=== PATIENT | male | born 1945 | race Caucasian/White ===

== ENCOUNTER → 2016-09-23 | Outpatient (CLI) | payer BC ==
[~2016-09-23] MED LIST: CMD5 PO; EPP3/2 IM; HYDR10TA52 PO; HYDR20TA3 PO; KETO2CRE14 TOP; LEUP11.23; SYMIN160 INH; TAMS0.4C38 PO; VNTHFA/IN INH; WARF5TAB90 PO; [UNRECOGNIZED DRUG - CODE] IM
--- NOTE | 2016-09-23 12:44 | DIAGNOSTIC IMAGING REPORT ---
CHEST 2 VIEWS ROUTINE CLINICAL HISTORY: R06.09 MORA (DYSPNEA ON EXERTION) COMPARISON STUDY: 05/29/2014 FINDINGS: The bones soft tissues and hemidiaphragms are normal. The cardiomediastinal silhouette is normal. The lungs are clear. The pulmonary vasculature is normal. IMPRESSION: Negative chest. Electronically signed by: Tom Ba M.D. 09/23/2016 12:43 PM Dictated Date/Time: 09/23/2016 12:43 PM
== END | disposition home or self-care (01) ==
LOC: C.RAD 12:04
PROVIDERS: ATTEND Family Medicine
DX: R06.09 Other forms of dyspnea (principal)

== ENCOUNTER → 2016-10-28 | Outpatient (CLI) | payer BC ==
[2016-10-28 16:51] LABS: MANUAL MICROSCOPIC REQUIRED? NO; REVIEW REQ? NO; URINE APPEARANCE CLOUDY (CLEAR); URINE BILIRUBIN NEG (NEG); URINE COLOR ORANGE; URINE EPITHELIAL CELL AUTO 20-30 /lpf (0-5); URINE NITRITE NEG (NEG); URINE SPECIFIC GRAVITY 1.023 (1.000-1.030); UROBILINOGEN NEG (NEG); ZZUR CULT IF INDIC CLEAN CATCH YES
== END | disposition home or self-care (01) ==
LOC: C.LAB 15:29
PROVIDERS: ATTEND Radiology Radiation Oncology
DX: C61 Malignant neoplasm of prostate (principal); R31.9 Hematuria, unspecified

== ENCOUNTER → 2016-11-18 | Outpatient (CLI) | payer BC ==
[2016-11-18 14:53] VITALS: BP 122/82; PULSE 76; TEMP 37; O2SAT 97
[2016-11-18 16:12] LABS: URINE APPEARANCE CLOUDY (CLEAR); URINE BILIRUBIN NEG (NEG); URINE COLOR YELLOW; URINE NITRITE NEG (NEG); URINE SPECIFIC GRAVITY 1.022 (1.000-1.030); UROBILINOGEN NEG (NEG); ZZUR CULT IF INDIC CLEAN CATCH NO
[2016-11-18 16:33] LABS: MANUAL MICROSCOPIC REQUIRED? NO; REVIEW REQ? NO
--- NOTE | 2016-11-18 16:40 | Radiation Oncology Follow-Up ---
Radiation Oncology Follow-Up Date of Visit Nov 18, 2016. Reason For Visit One-month follow-up and cancer survivorship care plan Radiation Completion Date 10/09/16 and hormonal suppression; Diagnosis (1) Prostate cancer Status: Acute Onset Date: 12/22/2013 Location: right lobe of the prostate in 2013 bilateral in 2016 Histology Subtype: adenocarcinoma Stage: ll Permanent Comment: Positive family history of prostate cancer Rising PSA to 6.54 Status post ultrasound-guided biopsies 12/22/2013 revealing adenocarcinoma Jose 3+4 Status post TURP 04/23/2014 benign tissue Status post repeat biopsy 07/19/2015 3+3, and 3+4 4+3 Status post repeat biopsy 03/06/2016 3+4, 4+3 and 4+4 Initiation of hormonal suppression 07/21/2016 with Lupron 30 mg. Plan for 18 months of hormonal suppression Status post completion of radiation therapy 10/09/2016 received 8040 cGy Last Edited By: Hilda Montemayor on Oct 20, 2016 13:03 History of Present Illness Mr. High is a 71-year-old male with a strong prostate cancer family history. The patient's father was diagnosed in his 60s with prostate cancer. He was treated with radiation and ultimately with hormonal therapy. He at age 80 from his prostate cancer. His younger brother was diagnosed with prostate cancer at age 60 with a similar [place] grade 7 and on April 14 of last year underwent a radical prostatectomy at [facility] in [place]. The patient has no other siblings and has no children. His prostate-specific antigen has been followed closely. In May 2012 prostate- specific antigen was elevated at 6.54. This was repeated on 08/12/2012 with return of the prostate-specific antigen to normal at 3.93. In 05/15/2013 the prostate-specific antigen was 4.38. On 06/01/2013 prostate-specific antigen was 4.11. With this persistent prostate-specific antigen elevation Dr. Vick recommended additional studies including a prostate biopsy. The patient digital rectal exam was unremarkable with a clinical stage TIc. On 12/22/2013 he underwent ultrasound-guided prostate biopsy. His prostate volume was 29.8 mL. With a presenting prostate-specific antigen of 4.11 his prostate- specific antigen density was normal at 0.14. A total of 20 biopsies were taken. Biopsies from the left base left mid left apex and left anterior were all benign. 2 of 3 biopsies from the right base revealed adenocarcinoma Jose grade of 3+3. The tumor involved about 0.2 mm of each core with no evidence of perineural invasion. 2 of 3 biopsies from the right mid gland revealed adenocarcinoma Jose grade of 3+4 involving 0.4 cm of one core and 0.1 cm of a second core. No perineural invasion was seen. The [place] grade 4 component was approximate 10%. Biopsies from the right base and right anterior were benign with evidence of mild acute and chronic inflammation seen in the right apex biopsies. Case: [id number]. The patient returned to discuss the biopsy findings with Dr. Vick. He is scheduled to see Dr. Aguiar to discuss robotic surgical treatment options here at [facility]. He is scheduled to be seen by the surgery Department at [facility] in [place] on 02/08/2014 for a second opinion and is planning on making an appointment at [facility] for an additional opinion on his prostate cancer. Patient had a bone scan performed on 01/02/2014 which showed no evidence of metastatic disease. An IVP on 01/23/2014 was unremarkable and a CT scan of the chest on 01/22/2014 also unremarkable. Following the initial consultation on 01/25/2014 patient sought a second opinion to [facility]. He was then seen at [facility] in [place]. This had been where his brother had been treated. He then followed with them for a period of time. Due to his difficulty with urination he had a cystoscopy and TURP 01/21/2014. This revealed benign tissue. Specimen S1 [id number]. The PSA 02/14/2015 was 4.19. He had a repeat biopsy 07/19/2015. This revealed minute foci of adenocarcinoma 3+3 at the left base. There was adenocarcinoma 4+3 at the right mid. 3+3 at the right apex. 3 +4 at the right base. 4+3 at the right mid. 3+3 at the right apex. Specimen S1 [id number]. His PSA 02/21/2016 was 7.30 More recently 03/06/2016 he had a recheck biopsy which revealed [place] 3+4 at the left base. There was a 4+3 at the right mid. And a 4+4 at the right lateral mid. Specimen [id number] [id number]. Today he gave an AUA score of 7. He completed expanded prostate cancer index composite for clinical practice and gave a score of 2 of 12 in urinary incontinence symptoms. He gave a score of 2 of 12 in urinary irritation symptoms. He gave a score of 5 of 12 in bowel symptoms. He gave a score of 3 of 12 in sexual symptoms. He gave a score of 3 of 12 in hormonal vitality symptoms. His total was 15 of 60. He had a recheck visit with Dr. Vick. The recheck biopsies were reviewed. The recommendation was for him to return to radiation oncology for follow-up. He had a recheck bone scan 05/11/2016. There was no evidence of metastatic disease. He had a CAT scan on the same day that showed no evidence of metastatic disease within the abdomen or pelvis. He has stable cortical and trabecular thickening in the right hemipelvis. He made a decision to undergo hormone suppression and external beam radiation therapy. Gold fiducial markers were placed. He then underwent radiation therapy. Radiation was completed 10/09/2016. He received 8040 cGy. Interim History He has had mild hematuria over the past month. This previously it had occurred and we discussed the symptoms that he was having. Urinalysis was obtained and culture. The final culture showed no growth. The hematuria has improved. He notes with increasing fluids this improves. He has had no hematuria over the past day and a half. He has mild pressure feeling of the bladder. At times he feels that the bladder does not completely empty. He will have dribbling of the urine before the stream starts and then after his stream finishes. He stopped tamsulosin on his own. He has had increased number of bowel movements. At times he will have diarrhea. He has had bowel issues in the past but have increased since completion of treatment. While on treatment he was taking Metamucil and this did help with his bowel side effects. He has stopped taking Metamucil. He completed AUA score sheet and gave a score of 13. At the end of treatment his AUA score was 13. He completed and expanded prostate cancer index composite for clinical practice and gave a score of 4 of 12 and urinary incontinence symptoms. He gave a score of 4 of 12 and urinary irritation symptoms. He gave a score of 8 of 12 bowel symptoms. He gave a score of 2 of 12 in sexual symptoms. He gave a score of 8 of 12 and hormonal vitality symptoms. His total was 26 of 60. He does continue to have hot flashes. He had a 9 pound weight gain which she attributes to decreased activity and not exercising. Allergies Coded Allergies: Iodinated Diagnostic Agents (Verified Allergy, Severe, CARDIAC ARREST FROM CT CONTRAST, 09/14/14) Home Medications Scheduled Budesonide/Formoterol Fumarate (Symbicort 160/4.5 Inhaler ), 2 PUFFS INH BID Epinephrine (Epipen 2-Pedro), 0.3 MG IM UD Hydrocortisone (Cortef), 15 MG PO QAM Hydrocortisone (Cortef), 10 MG PO HS Leuprolide Acetate (Lupron Depot), UD Tamsulosin Hcl (Flomax), 1 CAP PO DAILY Warfarin Sod (Coumadin), 7.5 MG PO 2XWK Warfarin Sodium (Coumadin), 5 MG PO 5XWK Scheduled PRN Cortisone Acetate (Cortisone Acetate), 100 MG IM UD PRN for adrenal shock Ketoconazole 2% (Nizoral 2%), 1 APPLN TOP DAILY PRN for Face-Itching Review of Systems Gastrointestinal: Symptoms: Diarrhea Oral: Symptoms: No Problems Respiratory: Symptoms: SOB At Rest, SOB With Exertion Sputum Character: Relates some of the SOB to inactivity and decreased endurance; Other Respiratory: SOB with and without exertion- uses symbicort inhaler w/ relief; Urinary: Comments: see below notations Skin: Symptoms: No Problems Physical Exam Vital Signs Date Time Temp Pulse Resp B/P Pulse Ox O2 Delivery O2 Flow Rate FiO2 11/18/16 14:53 37.0 76 16 122/82 97 Fatigue: None General Appearance: no apparent distress Eyes: normal inspection, EOMI ENT: normal ENT inspection, hearing grossly normal Respiratory/Chest: lungs clear, no respiratory distress, no accessory muscle use Cardiovascular: regular rate, rhythm, no gallop, no murmur Abdomen: non tender, soft, + pertinent finding (bladder scan shows postvoiding residual to be 0.) Extremities: no pedal edema Neurologic/Psychiatric: no motor/sensory deficits, alert, normal mood/affect Laboratory Studies Test 09/30/16 08:51 10/28/16 15:37 11/03/16 15:17 11/18/16 15:13 POC Prothrombin Time INR 2.3 (0.9-1.1) 2.0 (0.9-1.1) Urine Color ORANGE Urine Appearance CLOUDY (CLEAR) Urine pH 5.0 (4.5-7.5) Urine Specific Butterfield 1.023 (1.000-1.030) Urine Protein 2+ (NEG) Urine Glucose (UA) NEG (NEG) Urine Ketones TRACE (NEG) Urine Occult Blood 3+ (NEG) Urine Nitrite NEG (NEG) Urine Bilirubin NEG (NEG) Urine Urobilinogen NEG (NEG) Urine Leukocyte Esterase SMALL (NEG) Urine WBC (Auto) 10-30 /hpf (0-5) Urine RBC (Auto) >30 /hpf (0-4) Urine Hyaline Casts (Auto) 1-5 /lpf (0-5) Urine Epithelial Cells (Auto) 20-30 /lpf (0-5) Urine Bacteria (Auto) NEG (NEG) Prostate Specific Antigen < 0.010 ng/ml (0.000-4.000) Test 11/18/16 15:45 Assessment & Plan Plan: We'll check a urinalysis and urine culture and sensitivity. I've instructed him to restart tamsulosin and continue this medication regularly. I' ve instructed him to restart Metamucil and take this regularly. He'll be notified if he has a urinary tract infection this will be treated appropriately. We discussed that the hematuria may be secondary to inflammation posttreatment. This should steadily improve over time. His PSA results were complete before he left the office. This was less than 0.01. I reviewed with him that this is being affected by the hormone suppression. This will possibly increase following the completion of hormone suppression. As energy levels improved he can increase his exercise and activity. I've asked him to make an appointment to see Dr. Aguiar in 3 months. We asked him to return to our office in 6 months. Total Time In Follow-Up I spent 25 minutes speaking to the patient performing examination. I spent 15 minutes reviewing information and completeness note. Copy To Chuy Batista M.D.; Dequan Aguiar M.D.
== END | disposition home or self-care (01) ==
LOC: C.ONC 14:29
PROVIDERS: ATTEND Physician Assistant Medical
DX: Z08 Encounter for follow-up examination after completed treatment for malignant neoplasm (principal); Z92.3 Personal history of irradiation; Z85.46 Personal history of malignant neoplasm of prostate

== ENCOUNTER → 2017-04-22 | Outpatient (CLI) | payer BC | END | disposition home or self-care (01) | LOC: C.LAB 11:36 | PROVIDERS: ATTEND Urology | DX: J34.2 Deviated nasal septum (principal); R79.9 Abnormal finding of blood chemistry, unspecified; I82.4Z9 Acute embolism and thrombosis of unspecified deep veins of unspecified distal lower extremity; C61 Malignant neoplasm of prostate ==

== ENCOUNTER → 2017-05-28 | Outpatient (CLI) | payer BC ==
[~2017-05-28] MED LIST changes: -TAMS0.4C38 PO
--- NOTE | 2017-05-28 10:01 | DIAGNOSTIC IMAGING REPORT ---
KUB CLINICAL HISTORY: R31.0 Gross [id number] COMPARISON STUDY: 01/23/2014 FINDINGS: There is no pathologic bowel dilatation. There are no calcifications suspicious for urinary tract calculi. There are coarsened trabecular markings within the right hemipelvis. The findings likely represent Paget's disease IMPRESSION: 1. No evidence of pathologic bowel dilatation 2. No urinary tract calculi identified Electronically signed by: Arash Fry M.D. 05/28/2017 10:00 AM Dictated Date/Time: 05/28/2017 9:58 AM
[2017-05-28 10:03] LABS: URINE APPEARANCE CLEAR (CLEAR); URINE BILIRUBIN NEG (NEG); URINE COLOR YELLOW; URINE NITRITE NEG (NEG); URINE PH 5.5 (4.5-7.5); URINE SPECIFIC GRAVITY 1.018 (1.000-1.030); UROBILINOGEN NEG (NEG)
[2017-05-28 10:06] LABS: MANUAL MICROSCOPIC REQUIRED? NO; REVIEW REQ? NO
== END | disposition home or self-care (01) ==
LOC: C.RAD 09:10
PROVIDERS: ATTEND Nurse Practitioner Adult Health
DX: R31.0 Gross hematuria (principal)

== ENCOUNTER → 2017-06-01 | Outpatient (CLI) | payer BC | END | disposition home or self-care (01) | LOC: C.LABSPEC 17:08 | PROVIDERS: ATTEND Urology | DX: R31.0 Gross hematuria (principal) ==

== ENCOUNTER → 2017-12-02 | Outpatient (CLI) | payer OTHER ==
[~2017-12-02] MED LIST changes: +TAMS0.4C38 PO; +TRAM-10 PO
--- NOTE | 2017-12-02 18:25 | DIAGNOSTIC IMAGING REPORT ---
ADDENDUM Incidental note made of a bladder diverticulum arising from the posterior wall immediately superior to the seminal vesicles. In answer to the clinical query regarding of the presence of diverticulitis, no diverticulosis is present. Therefore, no diverticulitis is evident. No inflammatory changes of the bowel. Electronically signed by: Segundo Cunningham M.D. 12/03/2017 9:32 AM Dictated Date/Time: 12/03/2017 9:30 AM ORIGINAL REPORT ABD/PELVIS WITHOUT FOR STONE CLINICAL HISTORY: 72 years-old Male presenting with ABDOMINAL PAIN R/O STONE, history of prostate cancer. TECHNIQUE: Multidetector CT of the abdomen and pelvis was performed without the use of intravenous contrast. IV contrast: None. A dose lowering technique was used consistent with the principles of ALARA (as low as reasonably achievable). COMPARISON: 05/11/2016. CT DOSE (mGy.cm): The estimated cumulative dose is 1102.46 mGycm. FINDINGS: Qualification Engineer topogram: Unremarkable. Lung bases: Lungs and pleural spaces clear. Aortic valve calcification. Normal heart size. Small pericardial effusion, new from prior. No pleural effusion. Liver: Normal morphology. Density consistent with hepatic steatosis. Biliary: No gross biliary ductal dilatation allowing for noncontrast technique. Normal gallbladder. Pancreas: Moderate parenchymal atrophy. Spleen: Normal noncontrast appearance. Adrenal glands: Normal noncontrast appearance. Kidneys and ureters: Normal noncontrast appearance of the right kidney. Multiple left renal calculi, the largest at the lower pole measuring 9 mm. Apparent dilatation of the calyces at the lower pole as well as mild left pelviectasis. There is a calculus in the proximal left ureter measuring 4 mm, which is likely partially obstructing. An additional punctate calculus is evident in the left renal pelvis (series 2 image 82). Additionally, there is a 2 mm calculus in the distal left ureter (series 2 image 165). Mild diffuse periureteral fat stranding. Right ureter is normal. No right renal calculi. Bladder: Incompletely evaluated secondary to underdistention. Pelvic organs: Fiducial markers noted in the prostate likely indicating prior external beam radiation. Bowel: Normal. No bowel obstruction. Peritoneal cavity: No free fluid or intraperitoneal gas. Subtle infiltration of the periprostatic region likely represents post radiation change. Lymph nodes: No gross lymphadenopathy allowing for noncontrast technique. Vasculature: Atherosclerosis of the normal caliber abdominal aorta. Abdominal wall: Normal. Musculoskeletal: Degenerative changes of the spine. Cortical thickening with coarsened trabecular markings in the right hemipelvis consistent with Paget's disease. IMPRESSION: 1. Multiple calculi in the left ureter including a punctate calculus at the left renal pelvis, 4 mm proximal left ureteral calculus, and an additional 2 mm distal left ureteral calculus. These are likely partially obstructing given dilatation of the left renal pelvis and calyces of the left lower pole. Nonobstructing left renal calculi also noted, the largest measuring 9 mm. 2. No right renal or ureteral calculi. 3. Posttreatment changes in the pelvis from external beam radiation for treatment for prostate cancer. 4. Hepatic steatosis. 5. Small pericardial effusion, new from prior. 6. Right hemipelvis Paget's disease. Electronically signed by: Segundo Cunningham M.D. 12/02/2017 6:23 PM Dictated Date/Time: 12/02/2017 6:01 PM
== END | disposition home or self-care (01) ==
LOC: C.CTS 17:19
PROVIDERS: ATTEND Family Medicine
DX: N20.2 Calculus of kidney with calculus of ureter (principal); K76.0 Fatty (change of) liver, not elsewhere classified; I31.3 Pericardial effusion (noninflammatory); M88.88 Osteitis deformans of other bones

== ENCOUNTER → 2017-12-03 | Outpatient (CLI) | payer OTHER ==
[2017-12-03 10:07] LABS: BASO % 0.3 %; BASO ABS # 0.02 K/uL (0-0.2); EOS % 1.8 %; EOS ABS # 0.12 K/uL (0-0.5); HEMATOCRIT 38.2 % (42-52); HEMOGLOBIN 13.1 g/dL (14.0-18.0); IG# 0.01 K/uL (0.00-0.02); LYMPH % 19.3 %; LYMPH ABS # 1.28 K/uL (1.2-3.4); MEAN CELL VOLUME 88.4 fL (80-100); MEAN CORPUSCULAR HEMOGLOBIN 30.3 pg (25-34); MEAN CORPUSCULAR HGB CONC 34.3 g/dl (32-36); MEAN PLATELET VOLUME 9.1 fL (7.4-10.4); MONO % 9.8 %; MONO ABS # 0.65 K/uL (0.11-0.59); NEUT % 68.6 %; NEUT ABS # 4.55 K/uL (1.4-6.5); PLATELET COUNT 190 K/uL (130-400); RED CELL DISTRIBUTION WIDTH CV 13.5 % (11.5-14.5); RED CELL DISTRIBUTION WIDTH SD 43.9 fL (36.4-46.3); WHITE BLOOD COUNT 6.63 K/uL (4.8-10.8)
== END | disposition home or self-care (01) ==
LOC: C.LAB 09:05
PROVIDERS: ATTEND Family Medicine
DX: R10.9 Unspecified abdominal pain (principal); C61 Malignant neoplasm of prostate

== ENCOUNTER → 2017-12-04 | Outpatient (CLI) | payer OTHER ==
[2017-12-04 09:49] LABS: BASO % 0.2 %; BASO ABS # 0.01 K/uL (0-0.2); EOS % 4.2 %; HEMATOCRIT 37.9 % (42-52); LYMPH % 26.3 %; LYMPH ABS # 1.26 K/uL (1.2-3.4); MEAN CELL VOLUME 88.8 fL (80-100); MEAN CORPUSCULAR HEMOGLOBIN 30.4 pg (25-34); MEAN CORPUSCULAR HGB CONC 34.3 g/dl (32-36); MEAN PLATELET VOLUME 9.3 fL (7.4-10.4); MONO % 10.6 %; MONO ABS # 0.51 K/uL (0.11-0.59); NEUT % 58.7 %; NEUT ABS # 2.81 K/uL (1.4-6.5); PLATELET COUNT 192 K/uL (130-400); RED CELL DISTRIBUTION WIDTH CV 13.6 % (11.5-14.5); RED CELL DISTRIBUTION WIDTH SD 43.9 fL (36.4-46.3); WHITE BLOOD COUNT 4.79 K/uL (4.8-10.8)
== END | disposition home or self-care (01) ==
LOC: C.LAB 08:46
PROVIDERS: ATTEND Family Medicine
DX: R10.9 Unspecified abdominal pain (principal)

== ENCOUNTER → 2017-12-07 | Outpatient (CLI) | payer OTHER ==
--- NOTE | 2017-12-07 14:14 | DIAGNOSTIC IMAGING REPORT ---
KUB HISTORY: RENAL STONE, WENT TO LAB FIRST COMPARISON: KUB 05/28/2017. FINDINGS: The bowel gas pattern is unremarkable. There are no dilated loops of small bowel to suggest an obstruction. No right renal or right ureteral calculi. The patient's known left renal calculi are obscured by overlying bowel gas. Stable calcifications overlying the sacrum are therefore likely vascular. No ureteral calculi identified this study. No pneumoperitoneum or pneumatosis. IMPRESSION: The patient's known left renal and left ureteral calculi are not identified on this study. Electronically signed by: Des Harrison M.D. 12/07/2017 2:12 PM Dictated Date/Time: 12/07/2017 2:08 PM
[2017-12-07 15:20] LABS: ALBUMIN 3.7 gm/dl (3.4-5.0); AST/SGOT 17 U/L (15-37); BLOOD UREA NITROGEN 28 mg/dl (7-18); CALCIUM 9.3 mg/dl (8.5-10.1); CARBON DIOXIDE 28 mmol/L (21-32); CREATININE 1.73 mg/dl (0.60-1.40); GLUCOSE 146 mg/dl (70-99); POTASSIUM 3.9 mmol/L (3.5-5.1); SODIUM 139 mmol/L (136-145)
--- NOTE | 2017-12-07 15:20 | DIAGNOSTIC IMAGING REPORT ---
RENAL ULTRASOUND CLINICAL HISTORY: Renal stone. COMPARISON STUDY: CT of the abdomen and pelvis December 02, 2017 and KUB December 07, 2017. TECHNIQUE: Sonography of the kidneys and the urinary bladder was performed. FINDINGS: The right kidney measures 10.6 cm in maximal dimension and the left measures 12.4 cm. There is no hydronephrosis. Note is made of a 3.9 cm cyst within the lower pole of the left kidney. Several left renal calculi measure up to 9 mm. Both ureteral jets were identified. IMPRESSION: 1. No hydronephrosis. 2. Left-sided nephrolithiasis. Electronically signed by: Boris Keys M.D. 12/07/2017 3:19 PM Dictated Date/Time: 12/07/2017 3:16 PM
[2017-12-07 15:28] LABS: ALKALINE PHOSPHATASE 91 U/L (45-117); ALT/SGPT 28 U/L (12-78); TOTAL PROTEIN 7.3 gm/dl (6.4-8.2)
== END | disposition home or self-care (01) ==
LOC: C.LAB 13:30
PROVIDERS: ATTEND Family Medicine
DX: N20.0 Calculus of kidney (principal); R10.9 Unspecified abdominal pain

== ENCOUNTER → 2018-03-11 | Outpatient (CLI) | payer OTHER ==
[~2018-03-11] MED LIST changes: -LEUP11.23; +LEUP30IN3; -TAMS0.4C38 PO; -TRAM-10 PO
== END | disposition home or self-care (01) ==
LOC: C.PATHSPEC 13:45
PROVIDERS: ATTEND Podiatrist Foot & Ankle Surgery
DX: M19.071 Primary osteoarthritis, right ankle and foot (principal); C44.709 Unspecified malignant neoplasm of skin of left lower limb, including hip; L57.0 Actinic keratosis

== ENCOUNTER → 2018-03-14 | Outpatient (CLI) | payer OTHER ==
--- NOTE | 2018-03-15 05:30 | PAP/PSG TECHNICIAN REPORT ---
[facility] Food Service Assistant Polysomnogram Report Study name: None Report date: 03/15/2018 Study date: 03/14/2018 Referring Physician: Dr. Vaishnavi Diehl M.D. Name: EDWIN HIGH Interpreting Physician: Vaishnavi Diehl M.D. Date of : 1945 Food Service Assistant: Caro Esparza [facility]. Sex: Male Age: 72 StudyType: PSG Weight: 276 lbs Height: 72 years, Height 6' 3" Neck Circum: 17 inches BMI: 34.49 Medications: Albuterol 108 ( 90 Base), Azelastine 0.1%, Epi-Pen, Hydrocortisone 10 mg and 5 mg, Coumadin 5 mg Patient History 72 yr. old male here for a diagnostic sleep study. Patient had a recent PSG that was negative for ANDRZEJ. A repeat PSG is being done given the night to night variability in sleep apnea. Patient is taking a one-time Zolpidem for this study Parameters Monitored NPSG: E1-M2, E2-M1, Fp1-M2, Fp2-M1, F3-M2, F4-M2, F4-M1, C3-M2, C4-M2, C4-M1, O1-M2, O2-M2, O2-M1, T3-M2, T4-M1, P3-M2, P4-M1, CHIN1, CHIN2, HR, EKG, Legs, PFLOW, SNOR, FLOW, CFLOW, Tidal Volume, THOR, ABDO, SpO2, PLTH, CPRESS, ETCO2 Wave, ETCO2, pH Sleep Architecture Sleep Stages Time at Lights Off 9:33:31 PM STAGES Time (min.) TST (%) Time at Lights On 5:17:01 AM Wake 141.5 -- Total Recording Time (TRT) 463.00 min. N1 40.0 12 Total Sleep Period (TSP) 424.0 min. N2 170.5 53 Total Sleep Time (TST) 321.5min. N3 86.5 27 Awake Time 141.5 min. REM 24.5 8 Wake after Sleep Onset 134.0 min. Sleep Efficiency (SE) 69 % Sleep Onset Latency (AZK) 8.0 min. Number of Stage 1 Shifts None Awakenings 20 Stage Changes 82 Number of REM periods 3 REM 24.5 8 REM Latency 143.0 min. NREM 297.0 92 Body Position Analysis Supine Right Left Side Prone Vertical Total Sleep Time (min.) 165.7 248.7 0.0 248.72 0.0 3.9 Total Sleep Time (%) 23% 77% 0% 77 0% N/A% Total Sleep Time REM (min.) 0.0 24.5 0.0 None 0.0 0.0 Total Sleep Time NREM (min.) 72.8 224.2 0.0 None 0.0 0.0 Intermittent Wake (min.) 92.9 44.7 0.0 None 0.0 3.9 Total Sleep Period (%) 32% None None None None None Arousals Myoclonus (PLM) * Events Count Index Events Count Index Spontaneous 7 1 Events Awake (PLMW) 57 24.2 Respiratory 1 0.2 Events Asleep w/ Arousal (PLMA) 15 2.8 PLM 15 3 Events Asleep w/o Arousal (PLMS) 14 2.6 Snoring 12 2 Total Asleep 29 5.4 Total 34 6 Total 86 11 Respiratory Analysis * CA OA MA CH H RERA Total Count 0 0 0 0 15 0 15 Index 0.0 0.0 0.0 0 2.8 0 2.8 Mean Duration 0.0 0.0 0.0 0.00 30.5 0.0 30.5 Longest Duration 0.0 0.0 0.0 0.00 0.0 0.0 50.9 Respiratory Event Summary Total Supine ~Supine Right Left Prone REM NREM Apneas Count 0 0 0 0 N/A N/A 0 0 Index 0.0 0 0 0.0 N/A N/A 0 0 Hypopneas (4% Desat) Count 15 1 14 14 N/A N/A 2 13 Index 2.8 0.8 3 3.4 N/A N/A 4.9 2.6 Apneas & All Hypopneas Count 15 1 14 14 N/A N/A 2 13 Index 2.8 1 3 3 N/A N/A 4.9 2.6 Respiratory Events (Friction Paint Machine Tender+All Hyp+RERA) Count 15 1 14 14 N/A N/A 2 13 Index 2.8 1 3 3.4 N/A N/A 4.9 2.6 Respiratory Related Arousal Count 1 1 1 1 N/A N/A 0 1 Index 0.2 0 0 0 N/A N/A 0 0 Snoring Analysis Supine Right Left Prone REM NREM Total Snore duration 48.2 min Snores count 92 1,506 N/A N/A 233 1,365 1,598 Snore mean duration 1.8 Sec Snores index 76 363 N/A N/A 570.6 275.8 298.2 TST with snoring (%) 15.0% Desaturation Event Summary: Minimum %SpO2 Event Count Mean/Min/Max Duration(sec.) Desaturation Index % Time In Bed > 90 29 37.2 / 15.8 / 60.0 3.9 98.7 86 - 90 0 N/A 0.0 1.2 81 - 85 0 N/A 0.0 0.0 76 - 80 1 10.8 / 10.8 / 10.8 171.4 0.1 71 - 75 0 N/A 0.0 0.0 66 - 70 0 N/A 0.0 0.0 61 - 65 0 N/A 0.0 0.0 56 - 60 0 N/A 0.0 0.0 51 - 55 0 N/A 0.0 0.0 < 50 0 N/A 0.0 0.0 Total REM NREM Awake <50% 0.0 min. 0.0 min. 0.0 min. 0.0 min. 51 - 60% 0.0 min. 0.0 min. 0.0 min. 0.0 min. 61 - 70% 0.0 min. 0.0 min. 0.0 min. 0.0 min. 71 - 80% 0.4 min. 0.0 min. 0.0 min. 0.4 min. 81 - 90% 5.5 min. 0.1 min. 3.5 min. 2.0 min. 91 - 100% 441.8 min. 24.4 min. 293.5 min. 123.8 min. Average 93 94 93 95 Minimum SpO2 79 90 89 79 Desaturation Event Index 3.9 4.9 3.6 5.1 # Desat. Events below 89% 1 N/A N/A 1 Time(%) with Saturation below 89% 0.2 0.0 0.0 0.2 Time(min.) with Saturation below 89% 0.8 0.0 0.0 0.8 Time (mins) REM (mins) NREM (mins) % of TST SpO2 Below 90% 7 1 N6 0.2 SpO2 Below 88% 0 0 0 0 Heart Rate Analysis Min (bpm) Max (bpm) Average (bpm) Awake 61 188 70 NREM 61 78 68 REM 58 72 64 Overall 58 78 67 Supplemental O2 Values Minimum O2 level: None Value Start Time End Time Food Service Assistant Comments Mr. High slept in the right, left, and supine positions. No cardiac arrhythmia. PLMs noted. No bruxism noted. Snoring was noted and scored as a 3 on a scale of 0 through 5. (0=no snoring, 5=snoring loud enough to be heard through a closed door or down the [facility] way) Mr. High awoke to use the restroom 2 times during the night and used the urinal twice. Mr. High stated, that was a somewhat normal night. I woke up feeling more alert and i was not short of breath. The final report will be interpreted and signed by a sleep physician. The completed physician report will then be placed in the patient medical record. Therapy (cm H2O) 0 TIB (min.) 463.0 TST (min.) 321.5 Sleep Onset (min.) 8.0 REM Onset From Sleep (min.) 143.0 Sleep Efficiency % 69 Wakefulness (%) 31 Wakefulness (min.) 141.5 NREM 1 (%) 12 NREM 1 (min.) 40.0 NREM 2 (%) 53 NREM 2 (min.) 170.5 NREM 3 (%) 27 NREM 3 (min.) 86.5 REM (%) 8 REM (min.) 24.5 # Arousals 34 Arousal Index 6 # Snore 1,598 Snore Index 298.2 AHI 2.8 AHI Supine 1 AHI Non-Supine 3 NREM AHI 2.6 REM AHI 4.9 RDI 2.8 # Obstructive Apnea 0 # Central Apnea 0 # Mixed Apnea 0 # Hypopneas 15 RERAs 0 Total Respiratory Events 18 Time Below SpO2 89% (min.) 0.0 Mean NREM SpO2 (%) 93 Mean REM SpO2 (%) 94 Mean Sleep SpO2 (%) 93 Min NREM SpO2 (%) 89 Min REM SpO2 (%) 90 Position Supine (min.) 165.7 Position Non-supine (min.) 248.7 LM Index Sleep 5.4 LM Index NREM 4.8 LM Index REM 12.2 Mean Heart Rate (bpm) 67 Min Heart Rate (bpm) 58
== END | disposition home or self-care (01) ==
LOC: C.NEUR 20:00
PROVIDERS: ATTEND Internal Medicine
DX: G47.13 Recurrent hypersomnia (principal)

== ENCOUNTER 2021-02-17 09:37 | Observation (INO) ==
[2021-02-17] MEDS ORDERED: cefTRIAXone SODIUM 2,000 MG/70 ML BAG IV STA (11:05)
[2021-02-17] MEDS ORDERED: HYDROmorphone INJ 0.5 MG/0.5 ML SYR IV PRN (11:05)
[2021-02-17] MEDS ORDERED: ONDANSETRON INJ 2 MG/ML 2 ML VIAL IV STA (11:05)
[2021-02-17] MEDS ORDERED: ACETAMINOPHEN 1,000 MG/100 ML VIAL IV STA (11:05)
[2021-02-17] MEDS ORDERED: SULFAMETHOXAZOLE/TRIMETHOPRIM DS 800/160MG TAB PO ONE (11:05)
[2021-02-17 11:52] LABS: Basophils # (auto) 0.03 K/uL (0-0.2); Basophils % (auto) 0.2 %; Eosinophils # (auto) 0.05 K/uL (0-0.5); Eosinophils % (auto) 0.4 %; Hematocrit (blood only) 46.5 % (42-52); Hemoglobin 15.7 g/dL (14.0-18.0); Immature Granulocytes # (auto) 0.03 K/uL (0.00-0.02); Immature Granulocytes % (auto) 0.2 %; Lymphocytes # (auto) 0.96 K/uL (1.2-3.4); Mean Corpuscular Hgb Conc 33.8 g/dL (32-36); Mean Corpuscular Volume 91.9 fL (80-100); Mean Platelet Volume 9.6 fL (7.4-10.4); Neutrophils # (auto) 10.34 K/uL (1.4-6.5); Neutrophils % (auto) 86.2 %; Platelet Count 184 K/uL (130-400); RDW Coefficient of Variation 14.3 % (11.5-14.5); RDW Standard Deviation 48.1 fL (36.4-46.3); Red Blood Count 5.06 M/uL (4.7-6.1); White Blood Count 12.01 K/uL (4.8-10.8)
[2021-02-17 12:01] LABS: INR 2.5 (0.9-1.1)
[2021-02-17 12:14] LABS: BUN Creatinine Ratio 12.9 (10-20); Calcium 8.9 mg/dl (8.5-10.1); Creatinine Clr Calc Pharmacy 54.3 ml/min; Est GFR (Non-African American) 38.9 ml/min; Potassium 3.9 mmol/L (3.5-5.1)
[2021-02-17 12:17] LABS: Albumin Globulin Ratio 1.2 (0.9-2); Bilirubin,Total 0.8 mg/dl (0.2-1); Globulin 3.3 gm/dl (2.5-4.0); Total Protein 7.3 gm/dl (6.4-8.2)
[2021-02-17 12:18] LABS: Appearance Urine Clear (Clear); Bacteria Urine Automated Negative (Negative); Bilirubin Urine Negative (Negative); Blood Urine Trace (Negative); Color Urine Yellow; Glucose Urine UA Negative (Negative); Ketones Urine Negative (Negative); Leukocyte Esterase Urine Negative (Negative); Nitrite Urine Negative (Negative); Protein Urine Negative (Negative); Specific Gravity Urine 1.018 (1.000-1.030); Urobilinogen Urine Negative (Negative)
--- NOTE | 2021-02-17 12:53 | Ultrasound Report ---
US venous doppler LE RT CLINICAL HISTORY: Pt c/o RLE pain COMPARISON STUDY: No previous studies for comparison. FINDINGS: Real-time and color flow Doppler imaging were performed. Incomplete compressibility is seen within proximal aspect of the right femoral and right popliteal ve ins, similar to prior study. Extensive scarring within the deep venous structure of the right lower e xtremity is again demonstrated likely due to prior deep venous thrombosis. No evidence of acute DVT s een. There is no new acute deep venous thrombosis seen. IMPRESSION: 1. No evidence of acute deep venous thrombosis. 2. Extensive chronic renal scarring, similar to prior study. ACT 112: Negative or not required by law. The above report was generated using voice recognition software. It may contain grammatical, syntax o r spelling errors. Electronically signed by: Cara Schneider DO 02/18/2021 8:03 AM
--- NOTE | 2021-02-17 14:27 | Emergency Department Note ---
Impression & Plan Cellulitis ED Provider Note NAME: EDWIN ESPANA AGE: 75 SEX: M : 1945 ARRIVES VIA: Walk-In INFORMANT: Patient, ED PROVIDER(S): Josep Lester MD CHIEF COMPLAINT: Left lower extremity pain HPI: This 75-year-old male who is history of being on Coumadin for DVT who presents to the emergency department complaining of fever and chills at home as well as area of redness extending up his leg. The patient reports this started last evening. He has not taken anything for the pain in the leg. He reports a history of cellulitis. The patient's reports that the patient improved with a Luis Enrique compression machine. Patient reports the pain is an aching sensation made worse with any type of puts weight on the leg. He reports rest makes the pain better. He reports pain radiates up into his hip. ROS: See above HPI for pertinent positives & negatives. A total of 10 systems reviewed and were otherwise negative. PAST MEDICAL HISTORY: See Below PAST SURGICAL HISTORY: See Below FAMILY HISTORY: See Below SOCIAL HISTORY: See Below HOME MEDICATIONS: See Below ALLERGIES: See Below VITALS: See Below PHYSICAL EXAMINATION: VITAL SIGNS - Vital signs and nursing notes were reviewed. GENERAL -75 -year-old male appearing stated age who is in no acute distress. Communicates well with provider and answers questions appropriately. SKIN - RLE swelling and redness extending up over knee HEAD - NC/AT. EYES - PERRL with EOMI bilaterally. Sclera anicteric. Palpebral conjunctiva pink and moist with no injection noted. EARS - No deformities of external structures noted on gross examination bilaterally. NOSE - Midline and without cyanosis. No epistaxis or purulent drainage noted. Septum midline without deviation or septal hematoma noted. MOUTH/OROPHARYNX - Without perioral cyanosis. Buccal mucosa pink and moist and without leukoplakia. Tongue midline with equal elevation of palate bilaterally. No tonsillar hypertrophy, erythema, or exudates noted. NECK - Neck with FROM. Supple to palpation. No nuchal rigidity. LUNGS - Chest wall symmetric without accessory muscle use, intercostals retractions, or central cyanosis. Normal vesicular breath sounds CTA B/L. No wheezes, rales, or rhonchi appreciated. CARDIAC - RRR with S1/S2. No murmur, rubs, or gallops appreciated. ABDOMEN - Abdominal contour without pulsations or visible masses. BS normoactive all four quadrants. No tenderness, palpable masses, hepatosplenomegaly, or ascites noted. EXTREMITIES - No clubbing or peripheral cyanosis. Right lower extremity is grossly swollen extending up to the right knee. There is +1 pitting edema present. Pulses are both dopplered as well as palpated. NEUROLOGIC - Cranial nerves II through XII grossly intact. Sensory intact to light touch throughout. Patellar reflexes +2/4. PSYCH - A&Ox3 and cooperates fully with examiner. Pt is very pleasant and interacts well with examiner. MEDICAL DECISION MAKING: Patient was seen and evaluated as above in room C8. Review was performed of nursing notes and vital signs. I did review pertinent previous visits and patient history. After obtaining a thorough history and physical examination the above work up was performed. This 75-year-old male who presents emergency department complaining of right lower extremity cellulitis. The patient reports he was having chills earlier today. He does have an elevation in his white blood cell count. He was sent for an ultrasound of the right lower extremity. This confirms that the patient does not have a DVT. He was started on IV Rocephin and started on p.o. doxycycline. Patient was given Dilaudid for his pain. I did have a lengthy discussion about the patient and his findings with he and his . Both the patient and his are requesting to be admitted to the hospital. An order was placed for continuous cardiac monitoring. The monitor shows a rate of 74 with Normal SInus rhythm. The patient was evaluated during a period of high volume and high acuity during the global COVID-19 pandemic, and that diagnosis was suspected/considered upon their initial presentation. Their evaluation, treatment and testing was consistent with current guidelines for patients who present with complaints or symptoms that may be related to COVID-19. Patient was seen while provider was wearing PPE. Triage Nursing notes reviewed. Prior medical records reviewed Vital Signs: reviewed and remarkable for no significant abnormalities Differential diagnosis: Cellulitis, abscess, MRSA infection, DVT, necrotizing fasciitis, dermatitis, drug eruption, allergic reaction, as well as other pathologies. ER treatment provided: See below Laboratory studies: As stated above and show below. Imaging studies: See below Consultation(s): Internal Medicine Past Med/Surg History Medical History (Updated 02/17/21 @ 17:53 by JOSÉ ANTONIO Elam) Acquired deviated nasal septum Adrenal insufficiency Allergic rhinitis Anal fissure Anaphylactic reaction (05/22/14) Andropause Aortic stenosis Ascending aorta dilation Asthma (10/03/11) Asthma Benign prostatic hyperplasia Cognitive decline Contrast media allergy COPD (chronic obstructive pulmonary disease) Esophageal reflux External hemorrhoids Hiatal hernia History of anal fissures History of DVT (deep vein thrombosis) History of pulmonary embolism History of renal calculi nursing home current use of anticoagulant Obstructive sleep apnea Prostate cancer Prostate cancer (12/22/13) "Positive family history of prostate cancer Rising PSA to 6.54 Status post ultrasound-guided biopsies 12/22/2013 revealing adenocarcinoma [place] 3+4 Status post TURP 04/23/2014 benign tissue Status post repeat biopsy 07/19/2015 3+3, and 3+4 4+3 Status post repeat biopsy 03/06/2016 3+4, 4+3 and 4+4 Initiation of hormonal suppression 07/21/2016 with Lupron 30 mg. Plan for 18 months of hormonal suppression Status post completion of radiation therapy 10/09/2016 received 8040 cGy" On 05/20/16 11:31 Hilda Montemayor wrote "Positive family history of prostate cancer Rising PSA to 6.54 Status post ultrasound-guided biopsies 12/22/2013 revealing adenocarcinoma Jose 3+4 Status post TURP 04/23/2014 benign tissue Status post repeat biopsy 07/19/2015 3+3, and 3+4 4+3 Status post repeat biopsy 03/06/2016 3+4, 4+3 and 4+4" Seborrheic dermatitis Stage 3 chronic kidney disease Tachycardia as manifestation of blood transfusion reaction Venous insufficiency (chronic) (peripheral) Vertigo as late effect of cerebrovascular accident (CVA) Surgical History H/O prostatectomy H/O sinus surgery History of appendectomy S/P TURP (status post transurethral resection of prostate) Status post cystoscopy (11/07/13) Family History Father Prostate cancer Brother Prostate cancer Mother Cancer Thyroid cancer Social History Smoking Status: Never smoker Hx Alcohol Use: Yes Alcohol type: beer Hx Substance Use: No Preferred Language: Swiss Communication Ability: Effective Invasive Cardiologist Required: No Beliefs That Will Affect Care: None marital status: Current Living Situation: Spouse Current Living Situation Comment: at home with current occupational status: employed Feels Safe at Home: Yes Safety Concerns: Feels Safe At This Time Seatbelt Use: always Assistive Devices: Glasses and Walker Allergies Allergies Allergy/AdvReac Type Severity Reaction Status Date / Time Iodinated Contrast Media Allergy Severe CARDIAC Verified 02/17/21 11:[address] CONTRAST clindamycin Allergy Unknown Verified 02/17/21 19:41 Home Meds Home Medications Medication Instructions Recorded Confirmed Prevagen 10 mg PO PM 09/18/19 02/17/21 nystatin 100,000 unit/mL oral 500,000 unit PO QID PRN ml 04/30/20 02/17/21 suspension fluticasone furoate 100 1 inh INHALATION QAM 06/06/20 02/17/21 mcg-vilanterol 25 mcg/dose inhalation powder cholecalciferol (vitamin D3) 125 125 mcg PO QPM 06/20/20 02/17/21 mcg (5,000 unit) capsule warfarin 5 mg tablet See Rx Instructions PO UD tab 09/03/20 02/17/21 memantine 5 mg tablet 5 mg PO HS tab 10/23/20 02/17/21 Previous Rx's Medication Instructions Recorded hydrocortisone 5 mg tablet See Rx Instructions .ROUTE 10/24/20 .COMPLEX #450 tab cephalexin 500 mg PO QID 4 Days #16 cap 02/19/21 Results & Data (ED) Vital Signs Vital Signs - 24 hr 02/17/21 09:38 02/17/21 11:37 02/17/21 13:00 Temperature 36.9 C Temperature Source Temporal Artery Scan Pulse Rate 86 Pulse Rate [Apical] 89 74 Pulse Rhythm Regular Pulse Strength Normal Respiratory Rate 16 18 18 Respiratory Effort / Characteristics Non-Labored Respiratory Depth Normal Respiratory Pattern Regular Blood Pressure 181/108 H Blood Pressure [Left Arm] 113/69 124/70 Blood Pressure Mean 132 Blood Pressure Mean [Left Arm] 83 88 Blood Pressure Position Sitting Pulse Oximetry 98 94 94 Oxygen Delivery Method Room Air Room Air Room Air Sepsis Recent Fever Within 48 Hours No Sepsis New/Unexplained Change in Mental Status N/A Sepsis Action Taken by Nursing No Action Required Home Medications Current Medication List: was personally reviewed by me Laboratory Data Attestation: I reviewed the patient's lab results. Result diagrams: 02/19/21 07:56 02/19/21 07:56 Lab Results 02/17/21 02/17/21 02/17/21 Range/Units 11:40 11:40 11:40 WBC 12.01 H (4.8-10.8) K/uL RBC 5.06 (4.7-6.1) M/uL Hgb 15.7 (14.0-18.0) g/dL Hct 46.5 (42-52) % MCV 91.9 (80-100) fL MCH 31.0 (25-34) pg MCHC 33.8 (32-36) g/dL RDW Std Deviation 48.1 H (36.4-46.3) fL RDW Coeff of Robert 14.3 (11.5-14.5) % Plt Count 184 (130-400) K/uL MPV 9.6 (7.4-10.4) fL Immature Gran % (Auto) 0.2 % Neut % (Auto) 86.2 % Lymph % (Auto) 8.0 % Kern % (Auto) 5.0 % Eos % (Auto) 0.4 % Baso % (Auto) 0.2 % Neut # (Auto) 10.34 H (1.4-6.5) K/uL Lymph # (Auto) 0.96 L (1.2-3.4) K/uL Kern # (Auto) 0.60 H (0.11-0.59) K/uL Eos # (Auto) 0.05 (0-0.5) K/uL Baso # (Auto) 0.03 (0-0.2) K/uL Immature Gran # (Auto) 0.03 H (0.00-0.02) K/uL PT 24.0 H (9.0-12.0) Seconds INR 2.5 H (0.9-1.1) Sodium 142 (136-145) mmol/L Potassium 3.9 (3.5-5.1) mmol/L Chloride 106 (98-107) mmol/L Carbon Dioxide 28 (21-32) mmol/L Anion Gap 8.0 (3-11) BUN 22 H (7-18) mg/dl Creatinine 1.70 H (0.6-1.4) mg/dl Est Cr Clr Drug Dosing 54.3 ml/min Est GFR ( Amer) 45.0 ml/min Est GFR (Non-Af Amer) 38.9 ml/min BUN/Creatinine Ratio 12.9 (10-20) Glucose 94 (70-99) mg/dl Calcium 8.9 (8.5-10.1) mg/dl Total Bilirubin 0.8 (0.2-1) mg/dl AST 12 L (15-37) U/L ALT 26 (12-78) U/L Alkaline Phosphatase 67 (45-117) U/L Total Protein 7.3 (6.4-8.2) gm/dl Albumin 4.0 (3.4-5.0) gm/dl Globulin 3.3 (2.5-4.0) gm/dl Albumin/Globulin Ratio 1.2 (0.9-2) Urine Color Urine Appearance (Clear) Urine pH (4.5-7.5) Ur Specific [place] (1.000-1.030) Urine Protein (Negative) Urine Glucose (UA) (Negative) Urine Ketones (Negative) Urine Blood (Negative) Urine Nitrite (Negative) Urine Bilirubin (Negative) Urine Urobilinogen (Negative) Ur Leukocyte Esterase (Negative) Urine WBC (Auto) (0-5) /hpf Urine RBC (Auto) (0-4) /hpf U Hyaline Cast (Auto) (0-5) /lpf U Epithel Cells (Auto) (0-5) /lpf Urine Bacteria (Auto) (Negative) COVID-19 Eval Order SARS-CoV-2 (PCR) (Negative) Hepatitis C Ab Screen (Neg) 02/17/21 02/17/21 02/17/21 Range/Units 11:40 11:48 14:20 WBC (4.8-10.8) K/uL RBC (4.7-6.1) M/uL Hgb (14.0-18.0) g/dL Hct (42-52) % MCV (80-100) fL MCH (25-34) pg MCHC (32-36) g/dL RDW Std Deviation (36.4-46.3) fL RDW Coeff of Robert (11.5-14.5) % Plt Count (130-400) K/uL MPV (7.4-10.4) fL Immature Gran % (Auto) % Neut % (Auto) % Lymph % (Auto) % Kern % (Auto) % Eos % (Auto) % Baso % (Auto) % Neut # (Auto) (1.4-6.5) K/uL Lymph # (Auto) (1.2-3.4) K/uL Kern # (Auto) (0.11-0.59) K/uL Eos # (Auto) (0-0.5) K/uL Baso # (Auto) (0-0.2) K/uL Immature Gran # (Auto) (0.00-0.02) K/uL PT (9.0-12.0) Seconds INR (0.9-1.1) Sodium (136-145) mmol/L Potassium (3.5-5.1) mmol/L Chloride (98-107) mmol/L Carbon Dioxide (21-32) mmol/L Anion Gap (3-11) BUN (7-18) mg/dl Creatinine (0.6-1.4) mg/dl Est Cr Clr Drug Dosing ml/min Est GFR ( Amer) ml/min Est GFR (Non-Af Amer) ml/min BUN/Creatinine Ratio (10-20) Glucose (70-99) mg/dl Calcium (8.5-10.1) mg/dl Total Bilirubin (0.2-1) mg/dl AST (15-37) U/L ALT (12-78) U/L Alkaline Phosphatase (45-117) U/L Total Protein (6.4-8.2) gm/dl Albumin (3.4-5.0) gm/dl Globulin (2.5-4.0) gm/dl Albumin/Globulin Ratio (0.9-2) Urine Color Yellow Urine Appearance Clear (Clear) Urine pH 7.0 (4.5-7.5) Ur Specific [place] 1.018 (1.000-1.030) Urine Protein Negative (Negative) Urine Glucose (UA) Negative (Negative) Urine Ketones Negative (Negative) Urine Blood Trace H (Negative) Urine Nitrite Negative (Negative) Urine Bilirubin Negative (Negative) Urine Urobilinogen Negative (Negative) Ur Leukocyte Esterase Negative (Negative) Urine WBC (Auto) 1-5 (0-5) /hpf Urine RBC (Auto) 5-10 H (0-4) /hpf U Hyaline Cast (Auto) 1-5 (0-5) /lpf U Epithel Cells (Auto) 10-20 H (0-5) /lpf Urine Bacteria (Auto) Negative (Negative) COVID-19 Eval Order Covid19 at [facility] SARS-CoV-2 (PCR) (Negative) Hepatitis C Ab Screen Neg (Neg) 02/17/21 Range/Units 14:20 WBC (4.8-10.8) K/uL RBC (4.7-6.1) M/uL Hgb (14.0-18.0) g/dL Hct (42-52) % MCV (80-100) fL MCH (25-34) pg MCHC (32-36) g/dL RDW Std Deviation (36.4-46.3) fL RDW Coeff of Robert (11.5-14.5) % Plt Count (130-400) K/uL MPV (7.4-10.4) fL Immature Gran % (Auto) % Neut % (Auto) % Lymph % (Auto) % Kern % (Auto) % Eos % (Auto) % Baso % (Auto) % Neut # (Auto) (1.4-6.5) K/uL Lymph # (Auto) (1.2-3.4) K/uL Kern # (Auto) (0.11-0.59) K/uL Eos # (Auto) (0-0.5) K/uL Baso # (Auto) (0-0.2) K/uL Immature Gran # (Auto) (0.00-0.02) K/uL PT (9.0-12.0) Seconds INR (0.9-1.1) Sodium (136-145) mmol/L Potassium (3.5-5.1) mmol/L Chloride (98-107) mmol/L Carbon Dioxide (21-32) mmol/L Anion Gap (3-11) BUN (7-18) mg/dl Creatinine (0.6-1.4) mg/dl Est Cr Clr Drug Dosing ml/min Est GFR ( Amer) ml/min Est GFR (Non-Af Amer) ml/min BUN/Creatinine Ratio (10-20) Glucose (70-99) mg/dl Calcium (8.5-10.1) mg/dl Total Bilirubin (0.2-1) mg/dl AST (15-37) U/L ALT (12-78) U/L Alkaline Phosphatase (45-117) U/L Total Protein (6.4-8.2) gm/dl Albumin (3.4-5.0) gm/dl Globulin (2.5-4.0) gm/dl Albumin/Globulin Ratio (0.9-2) Urine Color Urine Appearance (Clear) Urine pH (4.5-7.5) Ur Specific [place] (1.000-1.030) Urine Protein (Negative) Urine Glucose (UA) (Negative) Urine Ketones (Negative) Urine Blood (Negative) Urine Nitrite (Negative) Urine Bilirubin (Negative) Urine Urobilinogen (Negative) Ur Leukocyte Esterase (Negative) Urine WBC (Auto) (0-5) /hpf Urine RBC (Auto) (0-4) /hpf U Hyaline Cast (Auto) (0-5) /lpf U Epithel Cells (Auto) (0-5) /lpf Urine Bacteria (Auto) (Negative) COVID-19 Eval Order SARS-CoV-2 (PCR) NEGATIVE (Negative) Hepatitis C Ab Screen (Neg) Administered Medications Discontinued Medications Fluticasone/Vilanterol (Fluticasone/Vilanterol 100/25mcg 14 Puffs/Inhaler) 1 puffs INH QAM [facility] Stop: 03/20/21 08:59 Last Admin: 02/19/21 07:55 Dose: 1 puffs Documented by: [id number] Admin: 02/18/21 07:51 Dose: 1 puffs Documented by: [id number] Hydrocortisone (Hydrocortisone 10 Mg Tab) 20 mg PO DAILY [facility] Stop: 03/20/21 08:59 Last Admin: 02/19/21 07:55 Dose: 20 mg Documented by: [id number] Admin: 02/18/21 07:51 Dose: 20 mg Documented by: [id number] Hydrocortisone (Hydrocortisone 10 Mg Tab) 10 mg PO DAILY@1700 [facility] Stop: 03/19/21 20:59 Last Admin: 02/18/21 16:09 Dose: 10 mg Documented by: [id number] Admin: 02/17/21 20:53 Dose: 10 mg Documented by: [id number] Hydromorphone HCl (Hydromorphone Inj 0.5 Mg/0.5 Ml Syr) 0.5 mg IV Q15M PRN PRN Reason: Pain Stop: 03/03/21 11:04 Last Admin: 02/17/21 11:50 Dose: 0.5 mg Documented by: [id number] Ceftriaxone Sodium (Rocephin) 2,000 mg in 70 mls @ 140 mls/hr IV NOW STA Stop: 02/17/21 11:34 Last Infusion: 02/17/21 12:26 Dose: 0 mls/hr Documented by: [id number] Admin: 02/17/21 11:49 Dose: 140 mls/hr Documented by: [id number] Acetaminophen (Ofirmev) 1,000 mg in 100 mls @ 400 mls/hr IV NOW STA Stop: 02/17/21 11:19 Last Infusion: 02/17/21 12:12 Dose: 0 mls/hr Documented by: [id number] Admin: 02/17/21 11:50 Dose: 400 mls/hr Documented by: [id number] Ceftriaxone Sodium 2,000 mg/ (Dextrose) 70 mls @ 100 mls/hr IV Q24H TAWNY; Protocol Stop: 02/26/21 09:41 Last Infusion: 02/19/21 08:36 Dose: 0 mls/hr Documented by: [id number] Admin: 02/19/21 07:54 Dose: 100 mls/hr Documented by: [id number] Infusion: 02/18/21 08:43 Dose: 0 mls/hr Documented by: [id number] Admin: 02/18/21 07:53 Dose: 100 mls/hr Documented by: [id number] Parenteral Electrolytes (Normosol-R) 1,000 mls @ 80 mls/hr IV .[id number] TAWNY Stop: 03/20/21 11:59 Last Infusion: 02/19/21 11:53 Dose: 0 mls/hr Documented by: [id number] Infusion: 02/19/21 08:36 Dose: 80 mls/hr Documented by: [id number] Infusion: 02/19/21 07:55 Dose: 0 mls/hr Documented by: [id number] Admin: 02/19/21 01:08 Dose: 80 mls/hr Documented by: [id number] Infusion: 02/19/21 00:44 Dose: 80 mls/hr Documented by: [id number] Admin: 02/18/21 12:14 Dose: 80 mls/hr Documented by: [id number] Memantine (Memantine Hcl 5 Mg Tab) 5 mg PO HS [facility] Stop: 03/19/21 20:59 Last Admin: 02/18/21 20:59 Dose: 5 mg Documented by: [id number] Admin: 02/17/21 20:53 Dose: 5 mg Documented by: [id number] Ondansetron HCl (Ondansetron Inj 2 Mg/Ml 2 Ml Vial) 4 mg IV NOW STA Stop: 02/17/21 11:06 Last Admin: 02/17/21 11:50 Dose: 4 mg Documented by: [id number] Trimethoprim/Sulfamethoxazole (Sulfamethoxazole/Trimethoprim Ds 800/160mg Tab) 1 tab PO NOW ONE Stop: 02/17/21 11:06 Last Admin: 02/17/21 11:50 Dose: 1 tab Documented by: [id number] Warfarin Sodium (Warfarin Sod 7.5 Mg Tab) 7.5 mg PO SuTuTh@1600 [facility] Stop: 03/20/21 15:59 Last Admin: 02/18/21 16:10 Dose: 7.5 mg Documented by: [id number] Warfarin Sodium (Warfarin Sod 5 Mg Tab) 5 mg PO MoWeFrSa@1700 [facility] Stop: 03/19/21 19:59 Last Admin: 02/17/21 20:52 Dose: 5 mg Documented by: [id number] Imaging Data Attestation: I personally reviewed and interpreted this imaging study as follows: Radiologist's Impression: Venous Doppler Study 02/17/21 11:05 US venous doppler LE RT CLINICAL HISTORY: Pt c/o RLE pain COMPARISON STUDY: No previous studies for comparison. FINDINGS: Real-time and color flow Doppler imaging were performed. Incomplete compressibility is seen within proximal aspect of the right femoral and right popliteal veins, similar to prior study. Extensive scarring within the deep venous structure of the right lower extremity is again demonstrated likely due to prior deep venous thrombosis. No evidence of acute DVT seen. There is no new acute deep venous thrombosis seen. IMPRESSION: 1. No evidence of acute deep venous thrombosis. 2. Extensive chronic renal scarring, similar to prior study. ACT 112: Negative or not required by law. The above report was generated using voice recognition software. It may contain grammatical, syntax or spelling errors. Discharge Plan Visit Data Chief Complaint: Leg Injury/Pain Stated Complaint: RT FOOT/LEG PAIN ED Provider: Josep Lester Discharge Problem: Cellulitis Patient Disposition: Home - Self-Care Condition: Good Discharge Instructions Interventions: ED Discharge Assessment Last Done: 02/17/21 18:17 Discharge Problem: Cellulitis Qualifiers: Site of cellulitis: unspecified site Qualified Code(s): L03.90 - Cellulitis, unspecified
--- NOTE | 2021-02-17 15:39 | Communication Note ---
Date of Service: February 17, 2021 History and physical exam performed by me. 75-year-old man with adrenal insufficiency, sleep apnea on CPAP, aortic stenosis, dilated ascending aorta, recurrent PE, venous insufficiency, prostate cancer, COPD versus asthma who presents for right lower extremity pain and swelling. History as detailed by Ania CHOU Physical exam: General: Well hydrated, obese, no acute distress Eyes: PERRL, not pale, anicteric sclerae, EOM intact bilaterally ENMT: External ear and nose normal, oropharynx normal Neck: Normal visual inspection, no tracheal deviation, no swelling noted Respiratory: Normal respiratory effort, no respiratory distress, lungs clear to auscultation, no crackles and no wheezes Cardiovascular: Pulse is RRR. S1 S2. Systolic ejection murmur Gastrointestinal (Abdomen): Abdomen is not distended, soft, non-tender to palpation, no guarding, no palpable hepatosplenomegaly, normal bowel sounds Musculoskeletal: No cyanosis or clubbing, all extremities motor strength 5/5, Erythema/swelling/differential warmth over right anterior leg in addition to some chronic stasis changes Genitourinary: No CVA tenderness Neurologic: Alert and oriented person, knows he is in a hospital but unsure which, knows the month/year only, No focal weakness, sensation grossly intact Psychiatric: Alert and oriented x 3, euthymic affect, no depressed affect -Right LE cellulitis WBC 12 Patient reports feeling confused. Was found wandering in ER by RN prior to our evaluation Reports chills but no recorded fever Get blood cultures Get CT head Continue ceftriaxone for now Agree with other plans as detailed by Ania CHOU
--- NOTE | 2021-02-17 17:43 | History & Physical Report ---
Date of Service February 17, 2021 Assessment & Plan (1) Cellulitis: -Admit to [facility] -Patient presenting from home with reports of increasing erythema and edema to the RLE -No open areas or wounds noted -S/p IV ceftriaxone and p.o. Bactrim in the ED. Continue with IV ceftriaxone -Follow blood cultures (2) AMS (altered mental status): -Was found wandering in the ED by nursing staff, seems to be mildly confused -this is new per the -? Metabolic encephalopathy from infection or due to Dilaudid received -Check CT head (3) Adrenal insufficiency: -Dosing of steroids is unclear -will order hydrocortisone 20 mg in the a.m. and 10 mg in the p.m. -dosing instructions per last endocrine note (4) Asthma: -Stable, no signs of acute exacerbation -Continue home inhalers (5) History of pulmonary embolism: (6) History of DVT (deep vein thrombosis): -On Coumadin, INR 2.5 (7) Stage 3 chronic kidney disease: -Baseline creatinine runs in the mid 's -creat 1.7 today -Monitor renal functions (8) DVT prophylaxis: -On Coumadin with therapeutic INR History of Present Illness Chief Complaint: Right leg pain Primary Care Provider: Chuy Batista MD 75-year-old male with PMH adrenal insufficiency on chronic steroids, history of DVT and PE anticoagulated on Coumadin, CKD stage III, aortic stenosis, history of prostate cancer, and other problems listed below who presents the ED for evaluation of right leg pain. Patient reports symptoms began last evening. He has noted increasing redness and swelling to the RLE. He has had chills but no fever. Reports he has a large dog at home that may have scratched his leg. Denies any other known trauma. No open areas on the leg. Denies chest pain or shortness of breath. No lightheadedness, dizziness, diaphoresis, syncopal events. Denies abdominal pain, nausea, vomiting, diarrhea. No urinary symptoms. Patient seems to be mildly confused and was found wandering in the ED by nursing staff. I spoke with patient's who reports that patient has been having some issues with forgetfulness however no confusion. Labs show WBC 12 K, otherwise unremarkable/at patient's baseline. Patient was given IV Tylenol, IV ceftriaxone, p.o. Bactrim, IV Dilaudid, IV Zofran. Allergies Allergy/AdvReac Type Severity Reaction Status Date / Time Iodinated Contrast Media Allergy Severe CARDIAC Verified 02/17/21 11:[address] CONTRAST Clindamycin Allergy Unknown Uncoded 02/17/21 11:41 Home Medications Medication Instructions Recorded Confirmed Type Prevagen 10 mg PO PM 09/18/19 02/17/21 History nystatin 100,000 unit/mL oral 500,000 unit PO QID PRN ml 04/30/20 02/17/21 History suspension fluticasone furoate 100 1 inh INHALATION QAM 06/06/20 02/17/21 History mcg-vilanterol 25 mcg/dose inhalation powder cholecalciferol (vitamin D3) 125 125 mcg PO QPM 06/20/20 02/17/21 History mcg (5,000 unit) capsule warfarin 5 mg tablet See Rx Instructions PO UD tab 09/03/20 02/17/21 History memantine 5 mg tablet 5 mg PO HS tab 10/23/20 02/17/21 History hydrocortisone 5 mg tablet See Rx Instructions .ROUTE 10/24/20 02/17/21 Rx .COMPLEX #450 tab Past Med/Surg History Medical History (Updated 02/17/21 @ 17:53 by JOSÉ ANTONIO Elam) Acquired deviated nasal septum Adrenal insufficiency Allergic rhinitis Anal fissure Anaphylactic reaction (05/22/14) Andropause Aortic stenosis Ascending aorta dilation Asthma (10/03/11) Asthma Benign prostatic hyperplasia Cognitive decline Contrast media allergy COPD (chronic obstructive pulmonary disease) Esophageal reflux External hemorrhoids Hiatal hernia History of anal fissures History of DVT (deep vein thrombosis) History of pulmonary embolism History of renal calculi 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 Plan for 18 months of hormonal suppression Status post completion of radiation therapy 10/09/2016 received 8040 cGy" On 05/20/16 11:31 Hilda Montemayor wrote "Positive family history of prostate cancer Rising PSA to 6.54 Status post ultrasound-guided biopsies 12/22/2013 revealing adenocarcinoma [place] 3+4 Status post TURP 04/23/2014 benign tissue Status post repeat biopsy 07/19/2015 3+3, and 3+4 4+3 Status post repeat biopsy 03/06/2016 3+4, 4+3 and 4+4" Seborrheic dermatitis Stage 3 chronic kidney disease Tachycardia as manifestation of blood transfusion reaction Venous insufficiency (chronic) (peripheral) Vertigo as late effect of cerebrovascular accident (CVA) Surgical History H/O prostatectomy H/O sinus surgery History of appendectomy S/P TURP (status post transurethral resection of prostate) Status post cystoscopy (11/07/13) Family History Father Prostate cancer Brother Prostate cancer Mother Cancer Thyroid cancer Social History Smoking Status: Never smoker Hx Alcohol Use: Yes Preferred Language: Arabic marital status: current occupational status: employed Feels Safe at Home: Yes Seatbelt Use: always Review of Systems Review of Systems: ROS per HPI, all other systems reviewed and negative Physical Exam Physical Exam: please refer to Dr. Christian's addendum for physical exam Results & Data Results & Data ([facility]) Vital Signs (Past 12 Hours) Vital Signs Temp Pulse Pulse Resp BP BP Pulse Ox 02/17/21 17:01 99 H 15 02/17/21 17:00 98 H 16 118/63 02/17/21 16:30 100 H 17 92/62 L 02/17/21 16:14 97 H 19 02/17/21 16:12 99 H 22 123/62 02/17/21 13:00 74 18 124/70 94 02/17/21 11:37 89 18 113/69 94 02/17/21 09:38 36.9 C 86 16 181/108 H 98 Laboratory Results Short CBC 02/17/21 Range/Units 11:40 WBC 12.01 H (4.8-10.8) K/uL Hgb 15.7 (14.0-18.0) g/dL Hct 46.5 (42-52) % Plt Count 184 (130-400) K/uL BMP 02/17/21 11:40 Sodium 142 Potassium 3.9 Chloride 106 Carbon Dioxide 28 BUN 22 H Creatinine 1.70 H Glucose 94 Calcium 8.9 Liver Function 02/17/21 Range/Units 11:40 Total Bilirubin 0.8 (0.2-1) mg/dl AST 12 L (15-37) U/L ALT 26 (12-78) U/L Alkaline Phosphatase 67 (45-117) U/L Albumin 4.0 (3.4-5.0) gm/dl Urine 02/17/21 Range/Units 11:40 Urine Color Yellow Urine Appearance Clear (Clear) Urine pH 7.0 (4.5-7.5) Ur Specific [place] 1.018 (1.000-1.030) Urine Protein Negative (Negative) Urine Glucose (UA) Negative (Negative) Diagnostic Findings Venous Doppler Study 02/17/21 11:05 US venous doppler LE RT CLINICAL HISTORY: Pt c/o RLE pain COMPARISON STUDY: No previous studies for comparison. FINDINGS: Real-time and color flow Doppler imaging were performed. Incomplete compressibility is seen within proximal aspect of the right femoral and right popliteal veins, similar to prior study. Extensive scarring within the deep venous structure of the right lower extremity is again demonstrated likely due to prior deep venous thrombosis. No evidence of acute DVT seen. There is no new acute deep venous thrombosis seen. IMPRESSION: 1. No evidence of acute deep venous thrombosis. 2. Extensive chronic renal scarring, similar to prior study. ACT 112: Negative or not required by law. The above report was generated using voice recognition software. It may contain grammatical, syntax or spelling errors. Code Status & VTE Plan Code Status Patient is a full code as per my discussion with him. VTE Prophylaxis Plan VTE Prophylaxis will be ordered: No Supervising Physician Co-Signing Physician Notes History and physical exam performed by me. 75-year-old man with adrenal insufficiency, sleep apnea on CPAP, aortic stenosis, dilated ascending aorta, recurrent PE, venous insufficiency, prostate cancer, COPD versus asthma who presents for right lower extremity pain and swelling. History as detailed by Ania CHOU Physical exam: General: Well hydrated, obese, no acute distress Eyes: PERRL, not pale, anicteric sclerae, EOM intact bilaterally ENMT: External ear and nose normal, oropharynx normal Neck: Normal visual inspection, no tracheal deviation, no swelling noted Respiratory: Normal respiratory effort, no respiratory distress, lungs clear to auscultation, no crackles and no wheezes Cardiovascular: Pulse is RRR. S1 S2. Systolic ejection murmur Gastrointestinal (Abdomen): Abdomen is not distended, soft, non-tender to palpation, no guarding, no palpable hepatosplenomegaly, normal bowel sounds Musculoskeletal: No cyanosis or clubbing, all extremities motor strength 5/5, Erythema/swelling/differential warmth over right anterior leg in addition to some chronic stasis changes Genitourinary: No CVA tenderness Neurologic: Alert and oriented person, knows he is in a hospital but unsure which, knows the month/year only, No focal weakness, sensation grossly intact Psychiatric: Alert and oriented x 3, euthymic affect, no depressed affect -Right LE cellulitis WBC 12 Patient reports feeling confused. Was found wandering in ER by RN prior to our evaluation Reports chills but no recorded fever Get blood cultures Get CT head Continue ceftriaxone for now Agree with other plans as detailed by Ania CHOU (1) Cellulitis Site of cellulitis: unspecified site Qualified Code(s): L03.90 - Cellulitis, unspecified
--- NOTE | 2021-02-17 19:17 | CT Scan Report ---
CT head/brain wo con CLINICAL HISTORY: 75 years-old Male with confusion. Acutely altered mental status TECHNIQUE: Multiple axial CT images of the head were obtained without contrast. A dose lowering tech nique was utilized adhering to the principles of ALARA. CT DOSE: 1263.33 mGy.cm COMPARISON: Brain MRI 02/02/2020 FINDINGS: No acute intracranial hemorrhage, midline shift, intracranial mass, hydrocephalus, territorial ischem ia or abnormal extra-axial collection. Age-related involutional changes. Unchanged hypodensities of t he basal ganglia suggestive of prominent perivascular spaces versus chronic lacunar infarcts. White m atter hypodensities suggestive of chronic microvascular ischemic disease. The calvarium is intact. Mastoid air cells are clear. Mild mucosal thickening of the maxillary and e thmoid sinuses. Unremarkable soft tissues and orbits. IMPRESSION: No acute intracranial abnormality. ACT 112: Negative or not required by law. The above report was generated using voice recognition software. It may contain grammatical, syntax o r spelling errors. Electronically signed by: Chaim Curiel M.D. 02/17/2021 7:16 PM
[2021-02-17] MEDS ORDERED: ACETAMINOPHEN 325 MG TAB PO PRN (19:35)
[2021-02-17] MEDS ORDERED: WARFARIN SOD 5 MG TAB PO SCH (20:00)
[2021-02-17] MEDS: HYDROCORTISONE 10 MG TAB PO SCH (20:53)
[2021-02-17] MEDS: MEMANTINE HCL 5 MG TAB PO SCH (20:53)
[2021-02-17] MEDS ORDERED: NON-FORMULARY MEDICATION (Prevagen 10 MG) PO SCH (21:00)
[2021-02-18 05:37] LABS: Hematocrit (blood only) 43.4 % (42-52); Hemoglobin 14.2 g/dL (14.0-18.0); Mean Corpuscular Hemoglobin 30.6 pg (25-34); Mean Corpuscular Hgb Conc 32.7 g/dL (32-36); Mean Corpuscular Volume 93.5 fL (80-100); Mean Platelet Volume 9.5 fL (7.4-10.4); Platelet Count 162 K/uL (130-400); RDW Coefficient of Variation 14.9 % (11.5-14.5); Red Blood Count 4.64 M/uL (4.7-6.1); White Blood Count 12.38 K/uL (4.8-10.8)
[2021-02-18 06:11] LABS: INR 2.5 (0.9-1.1); Prothrombin Time 23.2 Seconds (9.0-12.0)
[2021-02-18 06:16] LABS: BUN Creatinine Ratio 12.7 (10-20); Calcium 8.1 mg/dl (8.5-10.1); Creatinine Clr Calc Pharmacy 48.1 ml/min; Est GFR (African American) 38.9 ml/min; Est GFR (Non-African American) 33.5 ml/min; Potassium 4.5 mmol/L (3.5-5.1)
[2021-02-18] MEDS: FLUTICASONE/VILANTEROL 100/25MCG 14 PUFFS/INHALER INH SCH (07:51)
[2021-02-18] MEDS: HYDROCORTISONE 10 MG TAB PO SCH ×2 (07:51→16:09)
[2021-02-18] MEDS: cefTRIAXone SODIUM 2,000 MG in DEXTROSE 5% 50 ML IV SCH (07:53)
--- NOTE | 2021-02-18 11:39 | Hospitalist Progress Note ---
Date of Service February 18, 2021 Assessment & Plan (1) Cellulitis: Patient presented from home with reports of increasing erythema and edema to the RLE No open areas or wounds noted Continue ceftriaxone for now. Follow-up blood cultures (2) AMS (altered mental status): Was found wandering in the ED by nursing staff, seems to be mildly confused -this is new per the CT head and MRI brain did not show any acute abnormalities. This is possibly metabolic encephalopathy from infection vs Dilaudid received in ER Resolved. Avoid Dilaudid. Monitor. (3) Adrenal insufficiency: Dosing of steroids is unclear per patient report on admission Continue hydrocortisone 20 mg in the a.m. and 10 mg in the p.m. -dosing instructions per last endocrine note (4) Asthma: Stable, no signs of acute exacerbation Continue home inhalers (5) History of pulmonary embolism: (6) History of DVT (deep vein thrombosis): On Coumadin, INR 2.5 (7) Stage 3 chronic kidney disease: -Baseline creatinine runs 1.5-1.7 based on Cr results from 2019 Cr is 1.92 today Possibly mild VIOLETA Give some gentle IVf and monitor (8) DVT prophylaxis: -On Coumadin with therapeutic INR Admission and Anticipated Discharge Date Admission Date: February 17, 2021 Subjective 75-year-old man with adrenal insufficiency, sleep apnea on CPAP, aortic stenosis , dilated ascending aorta, recurrent PE, venous insufficiency, prostate cancer, COPD versus asthma who presents for right lower extremity pain and swelling. Being managed for right lower extremity cellulitis Patient seen and examined this morning. Reports feeling better. Still has right lower leg pain but states that this is better than yesterday. Reports chills is resolved. No more confusion. Denies any headache, dizziness. Denies any cough, chest pain. Reports chronic exertional dyspnea unchanged. Denies any nausea, vomiting, abdominal pain, diarrhea, constipation. Denies any dysuria, frequency, urgency Review of Systems Review of Systems: All systems reviewed & are unremarkable except as noted in Subjective Physical Exam Constitutional: + well hydrated; no acute distress Eyes: PERRL, conjunctivae normal, anicteric sclerae ENMT: external ear and nose normal, oropharynx normal Respiratory: normal respiratory effort, lungs clear to auscultation Cardiovascular: Rate/Rhythm: regular rate and regular rhythm S1-S2, systolic ejection murmur. Gastrointestinal (Abdomen): normal bowel sounds, soft, nontender, no hepatosplenomegaly Musculoskeletal: Erythema/swelling/differential warmth over right anterior leg within marking in addition to some chronic stasis changes Neurologic: PERRL, EOMI, accommodation nl, no face palsy, no dysarthria Psychiatric: A+Ox3, euthymic affect Genitourinary: no CVA tenderness Results & Data Results & Data ([facility]) Laboratory Results Abnormal lab results 02/17/21 02/17/21 02/17/21 Range/Units 11:40 11:40 11:40 WBC 12.01 H (4.8-10.8) K/uL RBC (4.7-6.1) M/uL RDW Std Deviation 48.1 H (36.4-46.3) fL RDW Coeff of Robert (11.5-14.5) % Neut # (Auto) 10.34 H (1.4-6.5) K/uL Lymph # (Auto) 0.96 L (1.2-3.4) K/uL [place] # (Auto) 0.60 H (0.11-0.59) K/uL Immature Gran # (Auto) 0.03 H (0.00-0.02) K/uL PT 24.0 H (9.0-12.0) Seconds INR 2.5 H (0.9-1.1) Anion Gap (3-11) BUN 22 H (7-18) mg/dl Creatinine 1.70 H (0.6-1.4) mg/dl Calcium (8.5-10.1) mg/dl AST 12 L (15-37) U/L Urine Blood (Negative) Urine RBC (Auto) (0-4) /hpf U Epithel Cells (Auto) (0-5) /lpf 02/17/21 02/18/21 02/18/21 Range/Units 11:40 05:24 05:24 WBC 12.38 H (4.8-10.8) K/uL RBC 4.64 L (4.7-6.1) M/uL RDW Std Deviation 51.0 H (36.4-46.3) fL RDW Coeff of Robert 14.9 H (11.5-14.5) % Neut # (Auto) (1.4-6.5) K/uL Lymph # (Auto) (1.2-3.4) K/uL [place] # (Auto) (0.11-0.59) K/uL Immature Gran # (Auto) (0.00-0.02) K/uL PT 23.2 H (9.0-12.0) Seconds INR 2.5 H (0.9-1.1) Anion Gap (3-11) BUN (7-18) mg/dl Creatinine (0.6-1.4) mg/dl Calcium (8.5-10.1) mg/dl AST (15-37) U/L Urine Blood Trace H (Negative) Urine RBC (Auto) 5-10 H (0-4) /hpf U Epithel Cells (Auto) 10-20 H (0-5) /lpf 02/18/21 Range/Units 05:24 WBC (4.8-10.8) K/uL RBC (4.7-6.1) M/uL RDW Std Deviation (36.4-46.3) fL RDW Coeff of Robert (11.5-14.5) % Neut # (Auto) (1.4-6.5) K/uL Lymph # (Auto) (1.2-3.4) K/uL [place] # (Auto) (0.11-0.59) K/uL Immature Gran # (Auto) (0.00-0.02) K/uL PT (9.0-12.0) Seconds INR (0.9-1.1) Anion Gap 1.0 L (3-11) BUN 24 H (7-18) mg/dl Creatinine 1.92 H (0.6-1.4) mg/dl Calcium 8.1 L (8.5-10.1) mg/dl AST (15-37) U/L Urine Blood (Negative) Urine RBC (Auto) (0-4) /hpf U Epithel Cells (Auto) (0-5) /lpf (1) Cellulitis Site of cellulitis: unspecified site Qualified Code(s): L03.90 - Cellulitis, unspecified
[2021-02-18] MEDS: NORMOSOL-R 1,000 ML IV SCH (12:14)
[2021-02-18] MEDS ORDERED: WARFARIN SOD 7.5 MG TAB PO SCH (16:00)
[2021-02-18] MEDS: MEMANTINE HCL 5 MG TAB PO SCH (20:59)
[2021-02-19] MEDS: NORMOSOL-R 1,000 ML IV SCH (01:08)
[2021-02-19] MEDS: cefTRIAXone SODIUM 2,000 MG in DEXTROSE 5% 50 ML IV SCH (07:54)
[2021-02-19] MEDS: FLUTICASONE/VILANTEROL 100/25MCG 14 PUFFS/INHALER INH SCH (07:55)
[2021-02-19] MEDS: HYDROCORTISONE 10 MG TAB PO SCH (07:55)
[2021-02-19 08:13] LABS: Hematocrit (blood only) 38.9 % (42-52); Mean Corpuscular Hemoglobin 31.1 pg (25-34); Mean Corpuscular Hgb Conc 33.4 g/dL (32-36); Mean Corpuscular Volume 93.1 fL (80-100); Mean Platelet Volume 9.2 fL (7.4-10.4); Platelet Count 144 K/uL (130-400); RDW Coefficient of Variation 14.8 % (11.5-14.5); RDW Standard Deviation 50.6 fL (36.4-46.3); Red Blood Count 4.18 M/uL (4.7-6.1)
[2021-02-19 08:51] LABS: BUN Creatinine Ratio 14.5 (10-20); Calcium 8.3 mg/dl (8.5-10.1); Creatinine Clr Calc Pharmacy 58.1 ml/min; Est GFR (African American) 48.8 ml/min; Est GFR (Non-African American) 42.1 ml/min
--- NOTE | 2021-02-19 10:53 | Discharge Summary ---
Date of Service February 19, 2021 Admission HPI Per Admitting Provider 75-year-old male with PMH adrenal insufficiency on chronic steroids, history of DVT and PE anticoagulated on Coumadin, CKD stage III, aortic stenosis, history of prostate cancer, and other problems listed below who presents the ED for evaluation of right leg pain. Patient reports symptoms began last evening. He has noted increasing redness and swelling to the RLE. He has had chills but no fever. Reports he has a large dog at home that may have scratched his leg. Denies any other known trauma. No open areas on the leg. Denies chest pain or shortness of breath. No lightheadedness, dizziness, diaphoresis, syncopal events. Denies abdominal pain, nausea, vomiting, diarrhea. No urinary symptoms. Patient seems to be mildly confused and was found wandering in the ED by nursing staff. I spoke with patient's who reports that patient has been having some issues with forgetfulness however no confusion. Labs show WBC 12 K, otherwise unremarkable/at patient's baseline. Patient was given IV Tylenol, IV ceftriaxone, p.o. Bactrim, IV Dilaudid, IV Zofran. Admission Exam Per Admitting Provider General: Well hydrated, obese, no acute distress Eyes: PERRL, not pale, anicteric sclerae, EOM intact bilaterally ENMT: External ear and nose normal, oropharynx normal Neck: Normal visual inspection, no tracheal deviation, no swelling noted Respiratory: Normal respiratory effort, no respiratory distress, lungs clear to auscultation, no crackles and no wheezes Cardiovascular: Pulse is RRR. S1 S2. Systolic ejection murmur Gastrointestinal (Abdomen): Abdomen is not distended, soft, non-tender to palpation, no guarding, no palpable hepatosplenomegaly, normal bowel sounds Musculoskeletal: No cyanosis or clubbing, all extremities motor strength 5/5, Erythema/swelling/differential warmth over right anterior leg in addition to some chronic stasis changes Genitourinary: No CVA tenderness Neurologic: Alert and oriented person, knows he is in a hospital but unsure which, knows the month/year only, No focal weakness, sensation grossly intact Psychiatric: Alert and oriented x 3, euthymic affect, no depressed affect Principal Diagnosis Right lower extremity Cellulitis Altered mental status Discharge Exam Constitutional + well hydrated; no acute distress Eyes PERRL, conjunctivae normal, anicteric sclerae ENMT external ear and nose normal, oropharynx normal Respiratory normal respiratory effort, lungs clear to auscultation Cardiovascular Rate/Rhythm: regular rate and regular rhythm S1-S2 Gastrointestinal (Abdomen) normal bowel sounds, soft, nontender, no hepatosplenomegaly Musculoskeletal Erythema/swelling/differential warmth over right anterior leg markedly improved since admission in addition to some chronic stasis changes Neurologic PERRL, EOMI, accommodation nl, no face palsy, no dysarthria Psychiatric A+Ox3, euthymic affect Genitourinary no CVA tenderness Discharge Data Allergies Allergy/AdvReac Type Severity Reaction Status Date / Time Iodinated Contrast Media Allergy Severe CARDIAC Verified 02/17/21 11:[address] CONTRAST clindamycin Allergy Unknown Verified 02/17/21 19:41 Consultations 02/17/21 14:32 ED Decision to Admit Stat Ordered Studies 02/17/21 11:05 US venous doppler LE RT Stat Real-time and color flow Doppler imaging were performed. Incomplete compressibility is seen within proximal aspect of the right femoral and right popliteal veins, similar to prior study. Extensive scarring within the deep venous structure of the right lower extremity is again demonstrated likely due to prior deep venous thrombosis. No evidence of acute DVT seen. There is no new acute deep venous thrombosis seen. IMPRESSION: 1. No evidence of acute deep venous thrombosis. 2. Extensive chronic renal scarring, similar to prior study. 02/17/21 15:24 CT head/brain wo con Urgent No acute intracranial hemorrhage, midline shift, intracranial mass, hydrocephalus, territorial ischemia or abnormal extra-axial collection. Age-related involutional changes. Unchanged hypodensities of the basal ganglia suggestive of prominent perivascular spaces versus chronic lacunar infarcts. White matter hypodensities suggestive of chronic microvascular ischemic disease. The calvarium is intact. Mastoid air cells are clear. Mild mucosal thickening of the maxillary and ethmoid sinuses. Unremarkable soft tissues and orbits. IMPRESSION: No acute intracranial abnormality. Hospital Course (1) Cellulitis: Patient presented from home with reports of increasing erythema and edema to the RLE No open areas or wounds noted Was started on ceftriaxone. Remarkable improvement in erythema and tenderness. Discharged on Keflex to complete treatment Patient advised to follow-up with podiatry for toe nail care (2) AMS (altered mental status): Was found wandering in the ED by nursing staff, seems to be mildly confused -this is new per the CT head and MRI brain did not show any acute abnormalities. This is possibly metabolic encephalopathy from infection vs Dilaudid received in ER Resolved. Avoid opioids (3) Adrenal insufficiency: Dosing of steroids is unclear per patient report on admission Continue hydrocortisone Continue follow-up with endocrinology (4) Asthma: Stable, no signs of acute exacerbation Continue home inhalers (5) History of pulmonary embolism: (6) History of DVT (deep vein thrombosis): On Coumadin, INR 2.5 yesterday (7) Stage 3 chronic kidney disease: -Baseline creatinine runs 1.5-1.7 based on Cr results from 2019 Cr is 1.92 yesterday, down to 1.59 today Possibly mild VIOLETA Give some gentle IVf and monitor Total Time Total Time Spent Total Time Spent (In Minutes): 60 Total Time Includes: Examination of the Patient, Discharge Planning and Medication Reconciliation Discharge Plan Discharge Items Patient Disposition: Home - Self-Care Reason For Visit: CELLULITIS Discharge Diagnosis: Right lower extremity cellulitis Condition on Discharge: Good Activity: Resume your previous activity Non-emergency contact: Primary Care Provider Call non-emergency contact if: you have any medication questions and your symptoms worsen Follow-up/Referrals: Chuy Batista MD [Primary Care Provider] - (Date & Time 02/26/2021 11:20 AM Provider Chuy Batista MD [facility] ) Diet: Heart Healthy Addtl Attending Provider Instructions: Mr High You came to the hospital complaining of right leg pain and swelling. You were evaluated and found to have right lower extremity cellulitis. You were started on antibiotics. Please continue antibiotics to complete therapy. You also had some confusion on admission for which you had CAT scan and MRI of the brain which did not show any acute abnormalities. Please ensure follow-up with your primary care doctor we will also arrange referral to podiatry. Continue to take your medications as prescribed. It was a pleasure taking care of you Pending Studies at Discharge: No Stand-Alone Forms: My X[employer], Smoking Cessation Medications and DC Order Prescriptions: New cephalexin 500 mg capsule 500 mg PO QID 4 Days Qty: 16 RF: 0 Continued Prevagen 10 mg PO PM RF: 0 memantine [Namenda] 5 mg tablet 5 mg PO HS RF: 0 nystatin 100,000 unit/mL suspension 500,000 unit PO QID PRN (Reason: mouth pain) RF: 0 warfarin 5 mg tablet See Rx Instructions PO UD RF: 0 cholecalciferol (vitamin D3) 125 mcg (5,000 unit) capsule 125 mcg PO QPM RF: 0 Breo Ellipta 100-25 mcg/dose blister with device 1 inh inhalation QAM RF: 0 hydrocortisone 5 mg tablet See Rx Instructions .ROUTE .COMPLEX Qty: 450 RF: 1 Discharge Orders: Discharge Order (Routine); Ordered 02/19/21 Ordered By: Alda Christian Admission Data Admit Date/Time: 02/17/21 15:07 Attending Provider: Alda Christian I. Admit Provider: Alda Christian I. Primary Care Provider: Chuy Batista Other Providers: Mike Morel Other Interventions: Discharge Summary Assessment (RN) Last Done: 02/19/21 11:27
== END 2021-02-19 12:29 | disposition home or self-care (01) ==
LOC: 2N 09:37 → ED 09:37 → 2N 18:17

== ENCOUNTER 2022-12-12 11:10 | Inpatient (IN) ==
--- NOTE | 2022-12-12 11:31 | Emergency Department Note ---
Impression & Plan Hematuria, Anemia, Acute urinary retention, Coagulopathy, SOB (shortness of breath) ED Provider Note NAME: EDWIN ESPANA AGE: 77 SEX: M : 1945 ARRIVES VIA: Walk-In INFORMANT: [Patient] ED PROVIDER(S): [Jluis Mason MD] CHIEF COMPLAINT: Unable to void HISTORY OF PRESENT ILLNESS: The patient is a 77-year-old male who has a history of prostate cancer that was treated. He was having some difficulty voiding over the last 3 months and some occasional blood in his urine. The patient did go to urology 2 days ago and his postvoid residual was 48. He was able to void that day. They told him that if he could not void or that if his urine became the color of ketchup, he should report to the ER. Last night, the patient did void at 11 PM, 12 hours ago. There was no real issue. This morning at 7 AM, he had a few dribbles of a katchup appearing urine. He has not really gone since and feels the pressure and the need to void. There has been no increased cough, he has not had fever, chills, nausea or vomiting. Lately, the patient has noticed some increased shortness of breath. Of note, the patient does take Coumadin regularly. PMHx/PSHx: See Below SOCIAL HISTORY: See Below. PHYSICAL EXAM: GENERAL: Patient is in no acute distress. HEENT: No acute trauma, normocephalic atraumatic, mucous membranes moist, no nasal congestion. NECK: No stridor, no adenopathy, no meningismus, trachea is midline. LUNGS: Clear to auscultation bilaterally, no wheeze, no rhonchi, breath sounds equal. HEART: 2/6 systolic murmur, regular rate and rhythm. ABDOMEN: Soft, nontender, bowel sounds positive, no peritonitis. EXTREMITIES: No cyanosis, mild bilateral pedal edema with some chronic skin change, full range of motion of all the joints without pain or difficulty, no signs for acute trauma. NEUROLOGIC: Oriented x 3, no acute motor or sensory deficits, no focal weakness. SKIN: No rash, no jaundice, no diaphoresis. DIFFERENTIAL DIAGNOSIS: Urinary retention, UTI, hematuria, dehydration, ureteral obstruction, renal failure, among others. EMERGENCY DEPARTMENT COURSE/PROCEDURES: Prior/Outside records reviewed: Recent urology note. MEDICAL DECISION MAKING: There is no leukocytosis. Hemoglobin was low at 7.9. There was a normal platelet count. INR is elevated consistent with his Coumadin use. Creatinine was elevated at 1.71, this is consistent with his previous values, he does have renal insufficiency. No concerning liver enzyme elevation. Urinalysis does show hematuria and possibly infection, COVID test returned negative. Abdominal and pelvis CT did not show any urinary obstruction or hematoma. The Devlin catheter was within the bladder. On exam, the patient had dario bloody urine in his Devlin bag. The patient received IV ceftriaxone as antibiotic coverage. The patient presents with persistent hematuria. He could not urinate this morning and required a Devlin catheter. He is anticoagulated on Coumadin. His hemoglobin has dropped about 2.5 points and I suspect the anemia is why he is now short of breath. I think the patient requires a hospital stay. I did speak with Dr. Aguiar of urology--no emergent urologic intervention required. I did speak with the on-call hospitalist. Case management has been involved. The patient is aware of all his findings. DISPOSITION: Patient presentation and findings warrant a hospital stay. Past Med/Surg History Medical History Bureau's disease follows with Endocrinology [facility] Adrenal insufficiency Allergic rhinitis Andropause Aortic stenosis follows annually with cardiology Ascending aorta dilation Asthma (10/03/11) well controlled. Benign prostatic hyperplasia Cardiac arrest hx r/t IV Contrast Dye "many years ago" Chronic steroid use Contrast media allergy COPD (chronic obstructive pulmonary disease) well controlled. uses Breo daily with exercise Hiatal hernia History of anal fissures History of DVT (deep vein thrombosis) hx "many years ago" unknown etiology History of pulmonary embolism hx "many years ago" unknown etiology Hx of prostatic malignancy ~2019. radiation Kidney stones x1 episode. no surgery needed. nursing home current use of anticoagulant Prostate cancer (12/22/13) "Positive family history of prostate cancer Rising PSA to 6.54 Status post ultrasound-guided biopsies 12/22/2013 revealing adenocarcinoma Spangle 3+4 Status post TURP 04/23/2014 benign tissue Status post repeat biopsy 07/19/2015 3+3, and 3+4 4+3 Status post repeat biopsy 03/06/2016 3+4, 4+3 and 4+4 Initiation of hormonal suppression 07/21/2016 with Lupron 30 mg. Plan for 18 months of hormonal suppression Status post completion of radiation therapy 10/09/2016 received 8040 cGy" On 05/20/16 11:31 Hilda M Sim wrote "Positive family history of prostate cancer Rising PSA to 6.54 Status post ultrasound-guided biopsies 12/22/2013 revealing adenocarcinoma Jose 3+4 Status post TURP 04/23/2014 benign tissue Status post repeat biopsy 07/19/2015 3+3, and 3+4 4+3 Status post repeat biopsy 03/06/2016 3+4, 4+3 and 4+4" Sleep apnea Cpap Stage 3 chronic kidney disease Venous insufficiency (chronic) (peripheral) Surgical History H/O sinus surgery History of appendectomy History of colonoscopy History of right cataract extraction S/P cataract extraction S/P TURP (status post transurethral resection of prostate) Status post cystoscopy (11/07/13) Family History Father Prostate cancer Brother Prostate cancer Mother Thyroid cancer Cancer Other No family history of adverse response to anesthesia Social History Smoking Status: Never smoker Second Hand Exposure: No; Do You Dip or Chew Tobacco: No; Hx Alcohol Use: Yes Alcohol type: beer Alcohol Intake Frequency: Monthly or Less Hx Substance Use: No Preferred Language: Belarusian Communication Ability: Effective 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 Beliefs That Will Affect Care: None marital status: Current Living Situation: Spouse Current Living Situation Comment: at home with current occupational status: retired Other Information That Helps Us Care for You: No Feels Safe at Home: Yes Safety Concerns: Feels Safe At This Time during the past year weight has: increased > 10 lbs Seatbelt Use: always Assistive Devices: CPAP and Glasses Allergies Allergies Allergy/AdvReac Type Severity Reaction Status Date / Time Iodinated Contrast Media Allergy Severe CARDIAC Verified 11/30/22 15:[address] CONTRAST clindamycin Allergy Unknown Unknown Verified 11/30/22 15:59 Home Meds Home Medications Medication Instructions Recorded Confirmed cholecalciferol (vitamin D3) 125 125 mcg PO QPM 06/20/20 12/12/22 mcg (5,000 unit) capsule donepezil 10 mg tablet 10 mg PO QPM 04/13/22 12/12/22 multivitamin with minerals 1 cap PO DAILY 04/13/22 12/12/22 ascorbic acid (vitamin C) 1,000 mg 1,000 mg PO QAM 08/27/22 12/12/22 tablet (Vitamin C) vitamin E 400 unit tablet 400 mg PO QAM 08/27/22 12/12/22 warfarin 5 mg tablet See Rx Instructions PO UD 11/27/22 12/12/22 epinephrine 0.3 mg/0.3 mL 0.3 mg IM Q4H PRN anaphylaxis 11/30/22 12/12/22 injection, auto-injector memantine 10 mg tablet 10 mg PO BID 11/30/22 12/12/22 montelukast 10 mg tablet 10 mg PO DAILY 11/30/22 12/12/22 fluticasone fur. 200 mcg-umeclid 1 inh inhalation QPM 12/12/22 12/12/22 62.5 mcg-vilant 25 mcg inhalat.powder (Trelegy Ellipta) fluticasone propionate 50 2 spray intranasal DAILY 12/12/22 12/12/22 mcg/actuation nasal spray,suspension Previous Rx's Medication Instructions Recorded hydrocortisone sod succ (PF) 100 100 mg (2 mL) IM ONCE PRN Adrenal 04/24/22 mg/2 mL solution for injection Crisis #1 ea (Solu-Cortef Act-O-Vial (PF)) hydrocortisone 5 mg tablet See Rx Instructions .Route 09/21/22 .COMPLEX 90 days #450 tabs albuterol sulfate 90 mcg/actuation 2 puff inhalation Q6H PRN 12/03/22 aerosol inhaler shortness of breath or wheezing #8.5 grams Results & Data (ED) Vital Signs Vital Signs - 24 hr 12/12/22 11:12 12/12/22 12:04 12/12/22 13:00 Temperature 36.7 C Temperature Source Temporal Artery Scan Pulse Rate 91 H Pulse Rate [Apical] 70 69 Respiratory Rate 18 20 14 Respiratory Effort / Characteristics Non-Labored Respiratory Depth Normal Normal Blood Pressure 118/69 Blood Pressure [Right Arm] 160/84 H 150/70 H Blood Pressure Mean 85 Blood Pressure Mean [Right Arm] 109 96 Blood Pressure Position Sitting Pulse Oximetry 100 100 98 Oxygen Delivery Method Room Air Room Air Room Air Sepsis New/Unexplained Change in Mental Status No Sepsis Action Taken by Nursing No Action Required 12/12/22 15:00 12/12/22 14:00 Temperature Temperature Source Pulse Rate Pulse Rate [Apical] 70 71 Respiratory Rate 14 14 Respiratory Effort / Characteristics Respiratory Depth Blood Pressure Blood Pressure [Right Arm] 161/85 H 140/70 Blood Pressure Mean Blood Pressure Mean [Right Arm] 110 93 Blood Pressure Position Pulse Oximetry 100 99 Oxygen Delivery Method Room Air Room Air Sepsis New/Unexplained Change in Mental Status Sepsis Action Taken by [facility] Medications Current Medication List: was personally reviewed by me Laboratory Data Attestation: I reviewed the patient's lab results. 12/12/22 11:59 12/12/22 11:59 Lab Results 12/12/22 12/12/22 12/12/22 Range/Units 11:59 11:59 11:59 WBC 5.95 (4.8-10.8) K/ul RBC 2.89 L (4.70-6.10) M/uL Hgb 7.9 L (14.0-18.0) g/dl Hct 25.1 L (42.0-52.0) % MCV 86.9 (80.0-100.0) fL MCH 27.3 (25.0-34.0) pg MCHC 31.5 L (32.0-36.0) g/dL RDW Std Deviation 47.8 H (36.4-46.3) fL RDW Coeff of Robert 14.8 H (11.5-14.5) % Plt Count 231 (130-400) K/uL MPV 9.4 (9.4-12.4) fL Immature Gran % (Auto) 0.7 % Neut % (Auto) 69.6 % Lymph % (Auto) 19.0 % [place] % (Auto) 8.7 % Eos % (Auto) 1.5 % Baso % (Auto) 0.5 % Neut # (Auto) 4.14 (1.40-6.50) K/uL Lymph # (Auto) 1.13 L (1.2-3.4) K/uL [place] # (Auto) 0.52 (0.11-0.59) K/uL Eos # (Auto) 0.09 (0-0.50) K/uL Baso # (Auto) 0.03 (0-0.2) K/uL Immature Gran # (Auto) 0.04 (0.01-0.20) K/uL RBC Morphology Unremarkable PT 21.9 H (9.0-12.0) Seconds INR 2.1 H (0.9-1.1) APTT 31.3 H (21.0-31.0) Seconds PTT Ratio 1.1 Sodium 139 (136-145) mmol/L Potassium 3.9 (3.5-5.1) mmol/L Chloride 107 (98-107) mmol/L Carbon Dioxide 24 (21-32) mmol/L Anion Gap 8 (3-11) BUN 22 (6-23) mg/dl Creatinine 1.71 H (0.6-1.4) mg/dl Est Cr Clr Drug Dosing 51.1 ml/min Est GFR ( Amer) 44.1 ml/min Est GFR (Non-Af Amer) 38.0 ml/min BUN/Creatinine Ratio 12.9 (10-20) Glucose 127 H (70-99(Fasting)) mg/dl Calcium 8.7 (8.6-10.3) mg/dl Total Bilirubin 0.4 (0.2-1.0) mg/dl AST 14 (13-39) U/L ALT 18 (7-52) U/L Alkaline Phosphatase 61 (34-104) U/L Total Protein 5.9 L (6.0-8.3) gm/dl Albumin 3.8 (3.4-5.0) gm/dl Globulin 2.1 L (2.5-4.0) gm/dl Albumin/Globulin Ratio 1.8 (0.9-2) Urine Color Urine Appearance (Clear) Urine pH (4.5-7.5) Ur Specific [place] (1.000-1.030) Urine Protein (Negative) Urine Glucose (UA) (Negative) Urine Ketones (Negative) Urine Blood (Negative) Urine Nitrite (Negative) Urine Bilirubin (Negative) Urine Urobilinogen (Negative) Ur Leukocyte Esterase (Negative) Urine RBC (0-4) /hpf Urine WBC (0-5) /hpf Ur Epithelial Cells (0-5) /lpf Urine Bacteria (Negative) SARS-CoV-2, RNA, NAAT (NEGATIVE) 12/12/22 12/12/22 Range/Units 12:12 15:01 WBC (4.8-10.8) K/ul RBC (4.70-6.10) M/uL Hgb (14.0-18.0) g/dl Hct (42.0-52.0) % MCV (80.0-100.0) fL MCH (25.0-34.0) pg MCHC (32.0-36.0) g/dL RDW Std Deviation (36.4-46.3) fL RDW Coeff of Robert (11.5-14.5) % Plt Count (130-400) K/uL MPV (9.4-12.4) fL Immature Gran % (Auto) % Neut % (Auto) % Lymph % (Auto) % [place] % (Auto) % Eos % (Auto) % Baso % (Auto) % Neut # (Auto) (1.40-6.50) K/uL Lymph # (Auto) (1.2-3.4) K/uL [place] # (Auto) (0.11-0.59) K/uL Eos # (Auto) (0-0.50) K/uL Baso # (Auto) (0-0.2) K/uL Immature Gran # (Auto) (0.01-0.20) K/uL RBC Morphology PT (9.0-12.0) Seconds INR (0.9-1.1) APTT (21.0-31.0) Seconds PTT Ratio Sodium (136-145) mmol/L Potassium (3.5-5.1) mmol/L Chloride (98-107) mmol/L Carbon Dioxide (21-32) mmol/L Anion Gap (3-11) BUN (6-23) mg/dl Creatinine (0.6-1.4) mg/dl Est Cr Clr Drug Dosing ml/min Est GFR ( Amer) ml/min Est GFR (Non-Af Amer) ml/min BUN/Creatinine Ratio (10-20) Glucose (70-99(Fasting)) mg/dl Calcium (8.6-10.3) mg/dl Total Bilirubin (0.2-1.0) mg/dl AST (13-39) U/L ALT (7-52) U/L Alkaline Phosphatase (34-104) U/L Total Protein (6.0-8.3) gm/dl Albumin (3.4-5.0) gm/dl Globulin (2.5-4.0) gm/dl Albumin/Globulin Ratio (0.9-2) Urine Color Red Urine Appearance Cloudy A (Clear) Urine pH 6.5 (4.5-7.5) Ur Specific [place] 1.016 (1.000-1.030) Urine Protein 3+ H (Negative) Urine Glucose (UA) Negative (Negative) Urine Ketones Negative (Negative) Urine Blood 3+ H (Negative) Urine Nitrite Positive A (Negative) Urine Bilirubin 1+ H (Negative) Urine Urobilinogen Negative (Negative) Ur Leukocyte Esterase 2+ H (Negative) Urine RBC >30 H (0-4) /hpf Urine WBC >30 H (0-5) /hpf Ur Epithelial Cells 5-10 H (0-5) /lpf Urine Bacteria 1+ H (Negative) SARS-CoV-2, RNA, NAAT NEGATIVE (NEGATIVE) Administered Medications Discontinued Medications Ceftriaxone Sodium (Rocephin) 2,000 mg in 70 mls @ 140 mls/hr IV NOW STA Stop: 12/12/22 13:20 Last Infusion: 12/12/22 14:05 Dose: 0 mls/hr Documented By: Admin: 12/12/22 13:35 Dose: 140 mls/hr Documented By: JOSE Phytonadione 2.5 mg/ Dextrose 50.25 mls @ 100.5 mls/hr IV ONE ONE Stop: 12/12/22 16:28 Last Infusion: 12/12/22 17:08 Dose: 0 mls/hr Documented By: Admin: 12/12/22 16:31 Dose: 100.5 mls/hr Documented By: IRLANDA Imaging Data Radiologist's Impression: Abdomen/Pelvis CT 12/12/22 12:33 CT SCAN OF THE ABDOMEN AND PELVIS WITHOUT IV CONTRAST CLINICAL HISTORY: Dysuria. COMPARISON STUDY: Abdominal CT dated 12/02/2017. TECHNIQUE: CT scan of the abdomen and pelvis is performed from the lung bases to the proximal femora. Images are reviewed in the axial, sagittal, and coronal planes. IV contrast was not administered for this examination. A dose lowering technique was utilized adhering to the principles of ALARA. CT DOSE: 1479.16 mGy.cm FINDINGS: Lung bases: The heart is normal in size noting a small pericardial effusion. The lung bases are clear. There is a small hiatal hernia. Liver: The unenhanced liver is enlarged, measuring 18.6 cm in length. The liver demonstrates diffusely diminished attenuation indicating steatosis. Fatty sparing is seen adjacent to the gallbladder fossa. There is no intrahepatic biliary ductal dilatation. Gallbladder: Unremarkable. Spleen: Normal in size and attenuation. Pancreas: The unenhanced pancreas is grossly unremarkable. Adrenal glands: Unremarkable. Kidneys: The unenhanced kidneys demonstrate cortical atrophy and are without hydronephrosis. There is a punctate nonobstructing right renal calculus. No left renal calculi are identified and there is no ureteral stone. There is no evidence of contour deforming renal mass lesion. Abdominal vasculature: The abdominal aorta is normal in course and caliber noting moderate to advanced atherosclerotic calcification. There is ectasia of the hepatic artery which measures up to 14 mm in diameter. This is similar to previous. Bowel: There is mild sigmoid diverticulosis without CT evidence of acute diverticulitis. No bowel obstruction is identified. The appendix is not identified and reported surgically absent. Peritoneum: There is no intraperitoneal free air or abdominal ascites. There is a small fat-containing umbilical hernia. Lymphadenopathy: None. Pelvic viscera: The prostate gland is diminutive and heterogeneous, and contains metallic implants. The bladder is decompressed around a Devlin catheter. The bladder wall appears thickened comment with surrounding inflammation and foci of intramural gas. There is a large posterior bladder diverticulum which measures up to 5.6 cm. Hyperdense material within the bladder and the large bladder diverticulum likely represents blood clots. An additional small bladder diverticulum is seen on the right. Skeletal structures: The skeletal structures are osteopenic. There is moderate lumbosacral spondylosis. Degenerative change and partial fusion is seen in the sacroiliac joints. No lytic or blastic lesions are seen. 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 This is similar to previous Soft tissues: There is an approximately 10 x 7.5 x 5.5 cm ovoid minimally complex fluid collection overlying the greater trochanter of the left femur seen on axial image #427. IMPRESSION: 1. The bladder is decompressed around a Devlin catheter. The wall appears thickened and there is surrounding inflammation. Correlate with clinical findings and urinalysis for evidence of cystitis. 2. Hyperdense material is present within the bladder lumen as well as within a large bladder diverticulum. This likely represents blood clots. Again, this should be correlated with urinalysis. Consider nonemergent follow-up with urology to exclude the possibility of underlying bladder lesion. 3. There is a punctate nonobstructing right renal calculus. 4. Hepatomegaly and hepatic steatosis. 5. Sigmoid diverticulosis without CT evidence of acute diverticulitis. 6. There is an ovoid minimally complex fluid collection overlying the greater trochanter of the left proximal femur. This likely represents a seroma or hematoma. The sterility of this fluid cannot be assessed by imaging and clinical correlation will be required. 7. Additional findings as above. ACT 112: Negative or not required by law. Electronically signed by: Jluis Oh M.D. 12/12/2022 1:16 PM Discharge Plan Visit Data Chief Complaint: Unable to Void Stated Complaint: UNABLE TO URINATE ED Provider: Jluis Mason Discharge Problem: Hematuria, Anemia, Acute urinary retention, Coagulopathy, SOB (shortness of breath) Patient Disposition: Admitted As Inpatient Condition: Fair Discharge Instructions Interventions: ED Discharge Assessment Last Done: 12/12/22 17:19
[2022-12-12 12:20] LABS: Basophils # (auto) 0.03 K/uL (0-0.2); Basophils % (auto) 0.5 %; Eosinophils # (auto) 0.09 K/uL (0-0.50); Eosinophils % (auto) 1.5 %; Hematocrit (blood only) 25.1 % (42.0-52.0); Hemoglobin 7.9 g/dl (14.0-18.0); Immature Granulocytes # (auto) 0.04 K/uL (0.01-0.20); Immature Granulocytes % (auto) 0.7 %; Lymphocytes # (auto) 1.13 K/uL (1.2-3.4); Mean Corpuscular Hemoglobin 27.3 pg (25.0-34.0); Mean Corpuscular Hgb Conc 31.5 g/dL (32.0-36.0); Mean Corpuscular Volume 86.9 fL (80.0-100.0); Mean Platelet Volume 9.4 fL (9.4-12.4); Monocytes # (auto) 0.52 K/uL (0.11-0.59); Monocytes % (auto) 8.7 %; Neutrophils # (auto) 4.14 K/uL (1.40-6.50); Neutrophils % (auto) 69.6 %; Platelet Count 231 K/uL (130-400); RDW Coefficient of Variation 14.8 % (11.5-14.5); RDW Standard Deviation 47.8 fL (36.4-46.3); Red Blood Count 2.89 M/uL (4.70-6.10); White Blood Count 5.95 K/ul (4.8-10.8)
[2022-12-12 12:34] LABS: Albumin Globulin Ratio 1.8 (0.9-2); Albumin Level 3.8 gm/dl (3.4-5.0); BUN Creatinine Ratio 12.9 (10-20); Bilirubin,Total 0.4 mg/dl (0.2-1.0); Calcium 8.7 mg/dl (8.6-10.3); Creatinine Clr Calc Pharmacy 51.1 ml/min; Est GFR (African American) 44.1 ml/min; Globulin 2.1 gm/dl (2.5-4.0); Potassium 3.9 mmol/L (3.5-5.1); Total Protein 5.9 gm/dl (6.0-8.3)
[2022-12-12 12:44] LABS: Appearance Urine Cloudy (Clear); Blood Urine 3+ (Negative); Color Urine Red; Glucose Urine UA Negative (Negative); Ketones Urine Negative (Negative); Leukocyte Esterase Urine 2+ (Negative); Nitrite Urine Positive (Negative); Protein Urine 3+ (Negative); Specific Gravity Urine 1.016 (1.000-1.030); Urobilinogen Urine Negative (Negative); pH Urine 6.5 (4.5-7.5)
[2022-12-12 12:46] LABS: Bilirubin Urine 1+ (Negative)
[2022-12-12 12:48] LABS: INR 2.1 (0.9-1.1); Partial Thromboplastin Ratio 1.1; Partial Thromboplastin Time 31.3 Seconds (21.0-31.0); Prothrombin Time 21.9 Seconds (9.0-12.0); RBC Morphology Unremarkable
[2022-12-12 12:49] LABS: RBC Urine >30 /hpf (0-4)
[2022-12-12 12:50] LABS: Bacteria Urine 1+ (Negative); WBC Urine >30 /hpf (0-5)
[2022-12-12] MEDS ORDERED: cefTRIAXone SODIUM 2,000 MG/70 ML BAG IV STA (12:51)
--- NOTE | 2022-12-12 13:18 | CT Scan Report ---
CT SCAN OF THE ABDOMEN AND PELVIS WITHOUT IV CONTRAST CLINICAL HISTORY: Dysuria. COMPARISON STUDY: Abdominal CT dated 12/02/2017. TECHNIQUE: CT scan of the abdomen and pelvis is performed from the lung bases to the proximal femora. Images are reviewed in the axial, sagittal, and coronal planes. IV contrast was not administered for this examination. A dose lowering technique was utilized adhering to the principles of ALARA. CT DOSE: 1479.16 mGy.cm FINDINGS: Lung bases: The heart is normal in size noting a small pericardial effusion. The lung bases are clear . There is a small hiatal hernia. Liver: The unenhanced liver is enlarged, measuring 18.6 cm in length. The liver demonstrates diffusel y diminished attenuation indicating steatosis. Fatty sparing is seen adjacent to the gallbladder taylor a. There is no intrahepatic biliary ductal dilatation. Gallbladder: Unremarkable. Spleen: Normal in size and attenuation. Pancreas: The unenhanced pancreas is grossly unremarkable. Adrenal glands: Unremarkable. Kidneys: The unenhanced kidneys demonstrate cortical atrophy and are without hydronephrosis. There is a punctate nonobstructing right renal calculus. No left renal calculi are identified and there is no ureteral stone. There is no evidence of contour deforming renal mass lesion. Abdominal vasculature: The abdominal aorta is normal in course and caliber noting moderate to advance d atherosclerotic calcification. There is ectasia of the hepatic artery which measures up to 14 mm in diameter. This is similar to previous. Bowel: There is mild sigmoid diverticulosis without CT evidence of acute diverticulitis. No bowel obs truction is identified. The appendix is not identified and reported surgically absent. Peritoneum: There is no intraperitoneal free air or abdominal ascites. There is a small fat-containin g umbilical hernia. Lymphadenopathy: None. Pelvic viscera: The prostate gland is diminutive and heterogeneous, and contains metallic implants. T he bladder is decompressed around a Devlin catheter. The bladder wall appears thickened comment with s urrounding inflammation and foci of intramural gas. There is a large posterior bladder diverticulum w hich measures up to 5.6 cm. Hyperdense material within the bladder and the large bladder diverticulum likely represents blood clots. An additional small bladder diverticulum is seen on the right. Skeletal structures: The skeletal structures are osteopenic. There is moderate lumbosacral spondylosi s. Degenerative change and partial fusion is seen in the sacroiliac joints. No lytic or blastic lesio ns are seen. 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 This is similar to previous Soft tissues: There is an approximately 10 x 7.5 x 5.5 cm ovoid minimally complex fluid collection ov erlying the greater trochanter of the left femur seen on axial image #427. IMPRESSION: 1. The bladder is decompressed around a Devlin catheter. The wall appears thickened and there is surro unding inflammation. Correlate with clinical findings and urinalysis for evidence of cystitis. 2. Hyperdense material is present within the bladder lumen as well as within a large bladder divertic ulum. This likely represents blood clots. Again, this should be correlated with urinalysis. Consider nonemergent follow-up with urology to exclude the possibility of underlying bladder lesion. 3. There is a punctate nonobstructing right renal calculus. 4. Hepatomegaly and hepatic steatosis. 5. Sigmoid diverticulosis without CT evidence of acute diverticulitis. 6. There is an ovoid minimally complex fluid collection overlying the greater trochanter of the left proximal femur. This likely represents a seroma or hematoma. The sterility of this fluid cannot be as sessed by imaging and clinical correlation will be required. 7. Additional findings as above. ACT 112: Negative or not required by law. Electronically signed by: Jluis Oh M.D. 12/12/2022 1:16 PM
[2022-12-12] MEDS ORDERED: PHYTONADIONE 2.5 MG in DEXTROSE 5% 50 ML IV ONE (15:59)
--- NOTE | 2022-12-12 15:59 | History & Physical Report ---
Date of Service December 12, 2022 Assessment & Plan (1) Gross hematuria: Plan: History of prostate cancer about 5 years ago and status post 44 radiation treatment and 4 infusion treatment He has been complaining of hematuria for the last 3 months Was seen by urology clinic on and the postvoid residual was 48 mL-apparent UA at that time did not show any infection Continues to have ongoing hematuria and was unable to void this morning and came to emergency room Also having shortness of breath which has been worse recently for the last 1 or 2 weeks without any chest pain Hemoglobin noted to be 7.9 today it dropped from 10.3 on of this month CT of the abdomen and pelvis did show bladder wall thickening with possible clot in the bladder but no hydronephrosis Devlin catheter was placed in and he was admitted to [facility] telemetry unit for continuation of care We will hold Coumadin for now and give a very small dose of vitamin K IV Monitor H&H and transfuse if further drop of hemoglobin. Urologist was consulted He was given ceftriaxone to cover possible UTI Bladder outlet obstruction with hematuria History of prostate cancer Devlin catheter in place Urology consult (2) Prostate cancer: Plan: History of prostate cancer as above Now coming with bladder outlet obstruction with hematuria Has had treatment with 44 radiation and 4 infusion (3) History of pulmonary embolism: Plan: And deep venous thrombosis on Coumadin INR is 2.1 (4) History of DVT (deep vein thrombosis): Plan: As above (5) Aortic stenosis: Plan: History of aortic stenosis ECHO-Echo was done on of this month showed normal LV size and systolic function with EF of 60 to 65%, no regional wall motion abnormalities, moderate concentric LVH, mild aortic stenosis, mild mitral regurgitation, mildly dilated ascending aorta of 4.4 cm, small pericardial effusion without tamponade, no significant change compared with prior study of 06/16/2001 Has not been having any chest pain and/or palpitation (6) COPD (chronic obstructive pulmonary disease): Plan: Has COPD and has been getting trilogy from 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 He has been complaining of shortness of breath with minimal exertion for the last 2 weeks. He was seen by the urology office day before yesterday where he was noted to have a volume of 48 mL. He was not been able to pass any urine this morning and was complaining of some lower abdominal discomfort and came to emergency room. Denies any chest pain and her palpitation, no abdominal distention, no nausea and or vomiting, no fever and or chills. In the emergency room he was noted to have gross hematuria with a hemoglobin of 7.[address] scan did show possible clot in the urinary bladder. His INR was not supratherapeutic. Urologist was informed and he will be admitted to medical telemetry unit for continuation of care. Allergies Allergy/AdvReac Type Severity Reaction Status Date / Time Iodinated Contrast Media Allergy Severe CARDIAC Verified 11/30/22 15:[address] CONTRAST clindamycin Allergy Unknown Unknown Verified 11/30/22 15:59 Home Medications Medication Instructions Recorded Confirmed Type cholecalciferol (vitamin D3) 125 125 mcg PO QPM 06/20/20 12/12/22 History mcg (5,000 unit) capsule donepezil 10 mg tablet 10 mg PO QPM 04/13/22 12/12/22 History multivitamin with minerals 1 cap PO DAILY 04/13/22 12/12/22 History hydrocortisone sod succ (PF) 100 100 mg (2 mL) IM ONCE PRN Adrenal 04/24/22 12/12/22 Rx mg/2 mL solution for injection Crisis #1 ea (Solu-Cortef Act-O-Vial (PF)) ascorbic acid (vitamin C) 1,000 mg 1,000 mg PO QAM 08/27/22 12/12/22 History tablet (Vitamin C) vitamin E 400 unit tablet 400 mg PO QAM 08/27/22 12/12/22 History hydrocortisone 5 mg tablet See Rx Instructions .Route 09/21/22 12/12/22 Rx .COMPLEX 90 days #450 tabs warfarin 5 mg tablet See Rx Instructions PO UD 11/27/22 12/12/22 History epinephrine 0.3 mg/0.3 mL 0.3 mg IM Q4H PRN anaphylaxis 11/30/22 12/12/22 History injection, auto-injector memantine 10 mg tablet 10 mg PO BID 11/30/22 12/12/22 History montelukast 10 mg tablet 10 mg PO DAILY 11/30/22 12/12/22 History albuterol sulfate 90 mcg/actuation 2 puff inhalation Q6H PRN 12/03/22 12/12/22 Rx aerosol inhaler shortness of breath or wheezing #8.5 grams fluticasone fur. 200 mcg-umeclid 1 inh inhalation QPM 12/12/22 12/12/22 History 62.5 mcg-vilant 25 mcg inhalat.powder (Trelegy Ellipta) fluticasone propionate 50 2 spray intranasal DAILY 12/12/22 12/12/22 History mcg/actuation nasal spray,suspension Past Med/Surg History Medical History Holt's disease Adrenal insufficiency Allergic rhinitis Andropause Aortic stenosis Ascending aorta dilation Asthma (10/03/11) Benign prostatic hyperplasia Cardiac arrest Chronic steroid use Contrast media allergy COPD (chronic obstructive pulmonary disease) Hiatal hernia History of anal fissures History of DVT (deep vein thrombosis) History of pulmonary embolism Hx of prostatic malignancy Kidney stones long-term current use of anticoagulant Prostate cancer (12/22/13) Sleep apnea Stage 3 chronic kidney disease Venous insufficiency (chronic) (peripheral) Surgical History H/O sinus surgery History of appendectomy History of colonoscopy History of right cataract extraction S/P cataract extraction S/P TURP (status post transurethral resection of prostate) Status post cystoscopy (11/07/13) Family History Father Prostate cancer Brother Prostate cancer Mother Thyroid cancer Cancer Other No family history of adverse response to anesthesia Social History Smoking Status: Never smoker Second Hand Exposure: No; Do You Dip or Chew Tobacco: No; Hx Alcohol Use: Yes Alcohol type: beer Alcohol Intake Frequency: Monthly or Less Hx Substance Use: No Preferred Language: German Communication Ability: Effective Financial Services Education Consultant Required: No Beliefs That Will Affect Care: None marital status: Current Living Situation: Spouse Current Living Situation Comment: at home with current occupational status: retired Feels Safe at Home: Yes during the past year weight has: increased > 10 lbs Seatbelt Use: always Assistive Devices: CPAP and Glasses Review of Systems Review of Systems: All systems reviewed and are unremarkable except as noted below Genitourinary: + dysuria and + hematuria Physical Exam Physical Exam: Lying in bed comfortably Constitutional: well developed, well nourished and + ill appearing Eyes: PERRL, conjunctivae normal, anicteric sclerae ENMT: external ear and nose normal, oropharynx normal Neck: trachea midline, no thyromegaly Respiratory: no respiratory distress Auscultation: + diminished lung sounds; no crackles Cardiovascular: Rate/Rhythm: regular rate and regular rhythm; not tachycardic Heart Sounds: normal S1, normal S2 and + murmur Extremities: + edema (1+ edema bilaterally,chronic) Gastrointestinal (Abdomen): Inspection/Auscultation: normal bowel sounds; abdomen not distended Percussion/Palpation: abdomen soft; abdomen nontender Musculoskeletal: No acute arthritis involving any joint Neurologic: normal touch/pain/proprioception and moves all extremities; no focal motor deficits Psychiatric: A+Ox3, euthymic affect Lymphatic: no cervical or axillary lymphadenopathy Results & Data Results & Data Vital Signs (Past 12 Hours) Vital Signs Temp Pulse Pulse Resp BP BP Pulse Ox 12/12/22 14:00 71 14 140/70 99 12/12/22 15:00 70 14 161/85 H 100 12/12/22 13:00 69 14 150/70 H 98 12/12/22 12:04 70 20 160/84 H 100 12/12/22 11:12 36.7 C 91 H 18 118/69 100 O2 Del Method 12/12/22 14:00 Room Air 12/12/22 15:00 Room Air 12/12/22 13:00 Room Air 12/12/22 12:04 Room Air 12/12/22 11:12 Room Air Laboratory Results Short CBC 12/12/22 Range/Units 11:59 WBC 5.95 (4.8-10.8) K/ul Hgb 7.9 L (14.0-18.0) g/dl Hct 25.1 L (42.0-52.0) % Plt Count 231 (130-400) K/uL BMP 12/12/22 11:59 Sodium 139 Potassium 3.9 Chloride 107 Carbon Dioxide 24 BUN 22 Creatinine 1.71 H Glucose 127 H Calcium 8.7 Liver Function 12/12/22 Range/Units 11:59 Total Bilirubin 0.4 (0.2-1.0) mg/dl AST 14 (13-39) U/L ALT 18 (7-52) U/L Alkaline Phosphatase 61 (34-104) U/L Albumin 3.8 (3.4-5.0) gm/dl Urine 12/12/22 Range/Units 12:12 Urine Color Red Urine Appearance Cloudy A (Clear) Urine pH 6.5 (4.5-7.5) Ur Specific [place] 1.016 (1.000-1.030) Urine Protein 3+ H (Negative) Urine Glucose (UA) Negative (Negative) Diagnostic Findings Laboratory Results WBC 5.95 K/ul (4.8-10.8) 12/12/22 11:59 RBC 2.89 M/uL (4.70-6.10) L 12/12/22 11:59 Hgb 7.9 g/dl (14.0-18.0) L 12/12/22 11:59 Hct 25.1 % (42.0-52.0) L 12/12/22 11:59 MCV 86.9 fL (80.0-100.0) 12/12/22 11:59 MCH 27.3 pg (25.0-34.0) 12/12/22 11:59 MCHC 31.5 g/dL (32.0-36.0) L 12/12/22 11:59 RDW Std Deviation 47.8 fL (36.4-46.3) H 12/12/22 11:59 RDW Coeff of Robert 14.8 % (11.5-14.5) H 12/12/22 11:59 Plt Count 231 K/uL (130-400) 12/12/22 11:59 MPV 9.4 fL (9.4-12.4) 12/12/22 11:59 Immature Gran % (Auto) 0.7 % 12/12/22 11:59 Neut % (Auto) 69.6 % 12/12/22 11:59 Lymph % (Auto) 19.0 % 12/12/22 11:59 Casey % (Auto) 8.7 % 12/12/22 11:59 Eos % (Auto) 1.5 % 12/12/22 11:59 Baso % (Auto) 0.5 % 12/12/22 11:59 Neut # (Auto) 4.14 K/uL (1.40-6.50) 12/12/22 11:59 Lymph # (Auto) 1.13 K/uL (1.2-3.4) L 12/12/22 11:59 Casey # (Auto) 0.52 K/uL (0.11-0.59) 12/12/22 11:59 Eos # (Auto) 0.09 K/uL (0-0.50) 12/12/22 11:59 Baso # (Auto) 0.03 K/uL (0-0.2) 12/12/22 11:59 Immature Gran # (Auto) 0.04 K/uL (0.01-0.20) 12/12/22 11:59 RBC Morphology Unremarkable 12/12/22 11:59 PT 21.9 Seconds (9.0-12.0) H 12/12/22 11:59 INR 2.1 (0.9-1.1) H 12/12/22 11:59 APTT 31.3 Seconds (21.0-31.0) H 12/12/22 11:59 PTT Ratio 1.1 12/12/22 11:59 Sodium 139 mmol/L (136-145) 12/12/22 11:59 Potassium 3.9 mmol/L (3.5-5.1) 12/12/22 11:59 Chloride 107 mmol/L (98-107) 12/12/22 11:59 Carbon Dioxide 24 mmol/L (21-32) 12/12/22 11:59 Anion Gap 8 (3-11) 12/12/22 11:59 BUN 22 mg/dl (6-23) 12/12/22 11:59 Creatinine 1.71 mg/dl (0.6-1.4) H 12/12/22 11:59 Est Cr Clr Drug Dosing 51.1 ml/min 12/12/22 11:59 Est GFR ( Amer) 44.1 ml/min 12/12/22 11:59 Est GFR (Non-Af Amer) 38.0 ml/min 12/12/22 11:59 BUN/Creatinine Ratio 12.9 (10-20) 12/12/22 11:59 Glucose 127 mg/dl (70-99(Fasting)) H 12/12/22 11:59 Calcium 8.7 mg/dl (8.6-10.3) 12/12/22 11:59 Total Bilirubin 0.4 mg/dl (0.2-1.0) 12/12/22 11:59 AST 14 U/L (13-39) 12/12/22 11:59 ALT 18 U/L (7-52) 12/12/22 11:59 Alkaline Phosphatase 61 U/L (34-104) 12/12/22 11:59 Total Protein 5.9 gm/dl (6.0-8.3) L 12/12/22 11:59 Albumin 3.8 gm/dl (3.4-5.0) 12/12/22 11:59 Globulin 2.1 gm/dl (2.5-4.0) L 12/12/22 11:59 Albumin/Globulin Ratio 1.8 (0.9-2) 12/12/22 11:59 Urine Color Red 12/12/22 12:12 Urine Appearance Cloudy (Clear) A 12/12/22 12:12 Urine pH 6.5 (4.5-7.5) 12/12/22 12:12 Ur Specific [place] 1.016 (1.000-1.030) 12/12/22 12:12 Urine Protein 3+ (Negative) H 12/12/22 12:12 Urine Glucose (UA) Negative (Negative) 12/12/22 12:12 Urine Ketones Negative (Negative) 12/12/22 12:12 Urine Blood 3+ (Negative) H 12/12/22 12:12 Urine Nitrite Positive (Negative) A 12/12/22 12:12 Urine Bilirubin 1+ (Negative) H 12/12/22 12:12 Urine Urobilinogen Negative (Negative) 12/12/22 12:12 Ur Leukocyte Esterase 2+ (Negative) H 12/12/22 12:12 Urine RBC >30 /hpf (0-4) H 12/12/22 12:12 Urine WBC >30 /hpf (0-5) H 12/12/22 12:12 Ur Epithelial Cells 5-10 /lpf (0-5) H 12/12/22 12:12 Urine Bacteria 1+ (Negative) H 12/12/22 12:12 SARS-CoV-2, RNA, NAAT NEGATIVE (NEGATIVE) 12/12/22 15:01 Impressions Abdomen/Pelvis CT 12/12/22 12:33 CT SCAN OF THE ABDOMEN AND PELVIS WITHOUT IV CONTRAST CLINICAL HISTORY: Dysuria. COMPARISON STUDY: Abdominal CT dated 12/02/2017. TECHNIQUE: CT scan of the abdomen and pelvis is performed from the lung bases to the proximal femora. Images are reviewed in the axial, sagittal, and coronal pl anes. IV contrast was not administered for this examination. A dose lowering technique was utilized adhering to the principles of ALARA. CT DOSE: 1479.16 mGy.cm FINDINGS: Lung bases: The heart is normal in size noting a small pericardial effusion. The lung bases are clear. There is a small hiatal hernia. Liver: The unenhanced liver is enlarged, measuring 18.6 cm in length. The liver demonstrates diffusely diminished attenuation indicating steatosis. Fatty sparing is seen adjacent to the gallbladder fossa. There is no intrahepatic biliary ductal dilatation. Gallbladder: Unremarkable. Spleen: Normal in size and attenuation. Pancreas: The unenhanced pancreas is grossly unremarkable. Adrenal glands: Unremarkable. Kidneys: The unenhanced kidneys demonstrate cortical atrophy and are without hydronephrosis. There is a punctate nonobstructing right renal calculus. No left renal calculi are identified and there is no ureteral stone. There is no evidence of contour deforming renal mass lesion. Abdominal vasculature: The abdominal aorta is normal in course and caliber noting moderate to advanced atherosclerotic calcification. There is ectasia of the hepatic artery which measures up to 14 mm in diameter. This is similar to previous. Bowel: There is mild sigmoid diverticulosis without CT evidence of acute diverticulitis. No bowel obstruction is identified. The appendix is not identified and reported surgically absent. Peritoneum: There is no intraperitoneal free air or abdominal ascites. There is a small fat-containing umbilical hernia. Lymphadenopathy: None. Pelvic viscera: The prostate gland is diminutive and heterogeneous, and contains metallic implants. The bladder is decompressed around a Devlin catheter. The bladder wall appears thickened comment with surrounding inflammation and foci of intramural gas. There is a large posterior bladder diverticulum which measures up to 5.6 cm. Hyperdense material within the bladder and the large bladder diverticulum likely represents blood clots. An additional small bladder diverticulum is seen on the right. Skeletal structures: The skeletal structures are osteopenic. There is moderate lumbosacral spondylosis. Degenerative change and partial fusion is seen in the sacroiliac joints. No lytic or blastic lesions are seen. 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 This is similar to previous Soft tissues: There is an approximately 10 x 7.5 x 5.5 cm ovoid minimally complex fluid collection overlying the greater trochanter of the left femur seen on axial image #427. IMPRESSION: 1. The bladder is decompressed around a Devlin catheter. The wall appears thickened and there is surrounding inflammation. Correlate with clinical findings and urinalysis for evidence of cystitis. 2. Hyperdense material is present within the bladder lumen as well as within a large bladder diverticulum. This likely represents blood clots. Again, this should be correlated with urinalysis. Consider nonemergent follow-up with urology to exclude the possibility of underlying bladder lesion. 3. There is a punctate nonobstructing right renal calculus. 4. Hepatomegaly and hepatic steatosis. 5. Sigmoid diverticulosis without CT evidence of acute diverticulitis. 6. There is an ovoid minimally complex fluid collection overlying the greater trochanter of the left proximal femur. This likely represents a seroma or hematoma. The sterility of this fluid cannot be assessed by imaging and clinical correlation will be required. 7. Additional findings as above. ACT 112: Negative or not required by law. Electronically signed by: Jluis Oh M.D. 12/12/2022 1:16 PM Medications Administered Current Inpatient Medications Ceftriaxone Sodium 2,000 mg/ (Dextrose) 70 mls @ 100 mls/hr IV Q24H [facility]; Protocol Stop: 12/22/22 15:44 Code Status & VTE Plan VTE Prophylaxis Plan VTE Prophylaxis will be ordered: Yes
[2022-12-12 16:48] LABS: Hematocrit (blood only) 24.2 % (42.0-52.0); Hemoglobin 7.5 g/dl (14.0-18.0)
[2022-12-12] MEDS ORDERED: SODIUM CHLORIDE 0.9% 250 ML IV PRN (16:48)
[2022-12-12] MEDS ORDERED: ALBUTEROL HFA 8 GM INHALER INH PRN (19:08)
--- NOTE | 2022-12-12 19:33 | Urology Consultation ---
Date of Consultation December 12, 2022 Assessment & Plan (1) Hematuria: (2) Acute urinary retention: The patient has been admitted on the hospitalist service. We recommend proceeding as follows: Follow serial labs Maintain Devlin catheter to gravity drainage. If Devlin catheter becomes clogged manual irrigation and flushing can be employed to relieve any clogs or clots that inhibit catheter drainage. Would recommend holding Coumadin which has already been initiated by the medical service due to his ongoing hematuria Provide transfusion as clinically indicated History of Present Illness Reason for Consultation: Hematuria with urinary retention Attending Physician: Estefany Devlin MD History of Present Illness This is a 77-year-old male who is known to the [facility] urology office. The patient is was most recently seen on 12/10/2022 in the office for a nurses visit. The patient was being seen for a postvoid residual. The patient was noted to have gross hematuria with only a postvoid residual of 48. Criteria was reviewed with the patient for presenting to the emergency department due to ongoing hematuria. The patient does note that he was doing fine since his visit at the urology office however he was able to void successfully most recently at 11:00 PM on 12/11/2022 and since that time has had a great deal of difficulty urinating. He did note some slight flank pain bilaterally. He denied any fevers, shakes, or chills. He did note some suprapubic discomfort in the urge to void. As he was unable to void he presented to the emergency department. Prior to the a for mentioned nurses office visit the patient was seen on 10/16/2022 by one of the nurse practitioners in the urology office. The patient was seen to follow-up for gross hematuria. The patient was noted to have a cystoscopy and urethral dilatation and fulguration with Dr. Aguiar most recently on 09/08/2022. As the patient continued to have gross hematuria and a known history of radiation cystitis along with the fact that he takes chronic anticoagulation was felt that the patient may benefit from hyperbaric oxygen therapy. The patient was seen at the wound care center on 10/21/2022 and plans were put in place for hyperbaric oxygen therapy however cardiac clearance was felt to be necessary. The patient was seen at the [facility] cardiology office and was felt that patient could proceed with hyperbaric therapy without any further cardiac evaluation however the patient notes that he has had ongoing shortness of breath that is somewhat worse so he is currently undergoing pulmonary evaluation prior to initiating hyperbaric therapy. Patient does report that due to his shortness of breath he is scheduled to undergo a CT scan of the chest for further evaluation of his shortness of breath on , December 17 of this year. Since arrival to the hospital the patient has had labs and imaging which I independent reviewed. A CBC revealed white blood cell count and platelet count were normal. Hemoglobin and hematocrit were 7.5 and 24.2. (The patient's most recent hemoglobin and hematocrit prior to this date was on 12/03/2022 where there was noted to be 10.3 and 33.5). Coagulation studies showed his INR was 2.1. Chemistry profile showed sodium and potassium were normal. BUN was noted to be normal and his creatinine was 1.7. (Review of records show baseline creatinine runs anywhere from 1.6-1.8). A urinalysis was performed that she was positive for nitrites. There is 2+ leukocyte Estrace and greater than 30 white blood cells per high-power field in addition to 1+ bacteria. A COVID test was noted to be negative. Since arrival to the hospital the patient has had a Devlin catheter placed and the patient notes significant improvement of his symptoms since this was placed At the time of my interview he was resting comfortably in bed and he was in no distress. Allergies Allergy/AdvReac Type Severity Reaction Status Date / Time Iodinated Contrast Media Allergy Severe CARDIAC Verified 11/30/22 15:[address] CONTRAST clindamycin Allergy Unknown Unknown Verified 11/30/22 15:59 Home Medications Medication Instructions Recorded Confirmed Type cholecalciferol (vitamin D3) 125 125 mcg PO QPM 06/20/20 12/12/22 History mcg (5,000 unit) capsule donepezil 10 mg tablet 10 mg PO QPM 04/13/22 12/12/22 History multivitamin with minerals 1 cap PO DAILY 04/13/22 12/12/22 History hydrocortisone sod succ (PF) 100 100 mg (2 mL) IM ONCE PRN Adrenal 04/24/22 12/12/22 Rx mg/2 mL solution for injection Crisis #1 ea (Solu-Cortef Act-O-Vial (PF)) ascorbic acid (vitamin C) 1,000 mg 1,000 mg PO QAM 08/27/22 12/12/22 History tablet (Vitamin C) vitamin E 400 unit tablet 400 mg PO QAM 08/27/22 12/12/22 History hydrocortisone 5 mg tablet See Rx Instructions .Route 09/21/22 12/12/22 Rx .COMPLEX 90 days #450 tabs warfarin 5 mg tablet See Rx Instructions PO UD 11/27/22 12/12/22 History epinephrine 0.3 mg/0.3 mL 0.3 mg IM Q4H PRN anaphylaxis 11/30/22 12/12/22 History injection, auto-injector memantine 10 mg tablet 10 mg PO BID 11/30/22 12/12/22 History montelukast 10 mg tablet 10 mg PO DAILY 11/30/22 12/12/22 History albuterol sulfate 90 mcg/actuation 2 puff inhalation Q6H PRN 12/03/22 12/12/22 Rx aerosol inhaler shortness of breath or wheezing #8.5 grams fluticasone fur. 200 mcg-umeclid 1 inh inhalation QPM 12/12/22 12/12/22 History 62.5 mcg-vilant 25 mcg inhalat.powder (Trelegy Ellipta) fluticasone propionate 50 2 spray intranasal DAILY 12/12/22 12/12/22 History mcg/actuation nasal spray,suspension Patient History Medical History Sweet Grass's disease follows with Endocrinology [facility] Adrenal insufficiency Allergic rhinitis Andropause Aortic stenosis follows annually with cardiology Ascending aorta dilation Asthma (10/03/11) well controlled. Benign prostatic hyperplasia Cardiac arrest hx r/t IV Contrast Dye "many years ago" Chronic steroid use Contrast media allergy COPD (chronic obstructive pulmonary disease) well controlled. uses Breo daily with exercise Hiatal hernia History of anal fissures History of DVT (deep vein thrombosis) hx "many years ago" unknown etiology History of pulmonary embolism hx "many years ago" unknown etiology Hx of prostatic malignancy ~2019. radiation Kidney stones x1 episode. no surgery needed. longterm current use of anticoagulant Prostate cancer (12/22/13) "Positive family history of prostate cancer Rising PSA to 6.54 Status post ultrasound-guided biopsies 12/22/2013 revealing adenocarcinoma Jose 3+4 Status post TURP 04/23/2014 benign tissue Status post repeat biopsy 07/19/2015 3+3, and 3+4 4+3 Status post repeat biopsy 03/06/2016 3+4, 4+3 and 4+4 Initiation of hormonal suppression 07/21/2016 with Lupron 30 mg. Plan for 18 months of hormonal suppression Status post completion of radiation therapy 10/09/2016 received 8040 cGy" On 05/20/16 11:31 Hilda Montemayor wrote "Positive family history of prostate cancer Rising PSA to 6.54 Status post ultrasound-guided biopsies 12/22/2013 revealing adenocarcinoma [place] 3+4 Status post TURP 04/23/2014 benign tissue Status post repeat biopsy 07/19/2015 3+3, and 3+4 4+3 Status post repeat biopsy 03/06/2016 3+4, 4+3 and 4+4" Sleep apnea Cpap Stage 3 chronic kidney disease Venous insufficiency (chronic) (peripheral) Surgical History H/O sinus surgery History of appendectomy History of colonoscopy History of right cataract extraction S/P cataract extraction S/P TURP (status post transurethral resection of prostate) Status post cystoscopy (11/07/13) Family History Father Prostate cancer Brother Prostate cancer Mother Thyroid cancer Cancer Other No family history of adverse response to anesthesia Social History Smoking Status: Never smoker Second Hand Exposure: No; Do You Dip or Chew Tobacco: No; Hx Alcohol Use: Yes Alcohol type: beer Alcohol Intake Frequency: Monthly or Less Hx Substance Use: No Preferred Language: Turkish Communication Ability: Effective [employer] Employee Required: No Beliefs That Will Affect Care: None marital status: Current Living Situation: Spouse Current Living Situation Comment: at home with current occupational status: retired Other Information That Helps Us Care for You: No Feels Safe at Home: Yes Safety Concerns: Feels Safe At This Time during the past year weight has: increased > 10 lbs Seatbelt Use: always Assistive Devices: CPAP and Glasses Review of Systems Constitutional: no fever and no chills Eyes: no eye pain Ear, Nose, Mouth, Throat: no hearing loss Respiratory: + dyspnea Cardiovascular: no chest pain Gastrointestinal: + abdominal pain (Suprapubic discomfort); no nausea and no vomiting Genitourinary: + as per Subjective / HPI Musculoskeletal: + back pain (Slight bilateral flank pain) Integumentary: no rash Neurologic: no localized weakness Physical Exam Constitutional: WD/WN, vitals as above Eyes: no conjunctival abnormality ENMT: Ears: no hearing impairment and no external ear abnormality Mouth: no oropharynx abnormality Neck: trachea midline Respiratory: normal respiratory effort; no respiratory distress and no labored breathing Cardiovascular: Rate/Rhythm: regular rate and regular rhythm Gastrointestinal (Abdomen): Abdomen is soft and nondistended. It is nonrigid. There is no pain with palpation Musculoskeletal: No calf tenderness Skin: no rashes Neurologic: moves all extremities Psychiatric: A+Ox3, euthymic affect Genitourinary: no CVA tenderness Devlin catheter is in place draining bloody urine. It does appear patent at this time. There are no visible clots in the collection tubing or bag Results & Data Vital Signs (Past 12 Hours) Vital Signs Temp Pulse Pulse Resp BP BP Pulse Ox 12/12/22 18:00 70 12/12/22 18:12 36.7 C 64 18 160/78 H 100 12/12/22 17:35 12/12/22 17:03 70 17 160/77 H 99 12/12/22 16:45 69 17 155/80 H 99 12/12/22 14:00 71 14 140/70 99 12/12/22 15:00 70 14 161/85 H 100 12/12/22 13:00 69 14 150/70 H 98 12/12/22 12:04 70 20 160/84 H 100 12/12/22 11:12 36.7 C 91 H 18 118/69 100 O2 Del Method 12/12/22 18:00 12/12/22 18:12 Room Air 12/12/22 17:35 Room Air 12/12/22 17:03 Room Air 12/12/22 16:45 Room Air 12/12/22 14:00 Room Air 12/12/22 15:00 Room Air 12/12/22 13:00 Room Air 12/12/22 12:04 Room Air 12/12/22 11:12 Room Air PG Care Time/CCT Total # of Minutes Spent Total Time Spent with Patient: Total time spent is greater than 50% in coordination of care (as documented) at patient's floor/unit and/or counseling patient: Coding Level of Care Code 16119 INT INP/OBS CARE 3/75MIN Diagnoses Hematuria R31.0 Hematuria type: gross Acute urinary retention R33.8 (1) Hematuria Hematuria type: gross Qualified Code(s): R31.0 - Gross hematuria
[2022-12-12] MEDS: MEMANTINE HCL 10 MG TAB PO SCH (20:49)
[2022-12-12] MEDS: DONEPEZIL HCL 10 MG TAB PO SCH (20:49)
[2022-12-12] MEDS: CHOLECALCIFEROL 5,000 UNITS 125 MCG TAB PO SCH (20:49)
[2022-12-12] MEDS: HYDROCORTISONE 10 MG TAB PO SCH (20:49)
[2022-12-12] MEDS: FLUTICASONE FUROATE 200MCG 14 PUFFS/INHALER INH SCH (22:13)
[2022-12-12] MEDS: UMECLIDINIUM/VILANTEROL 62.5/25MCG 7 PUFFS/INHALER INH SCH (22:14)
[2022-12-13 07:35] LABS: Basophils # (auto) 0.03 K/uL (0-0.2); Basophils % (auto) 0.4 %; Eosinophils # (auto) 0.07 K/uL (0-0.50); Eosinophils % (auto) 0.9 %; Hematocrit (blood only) 25.7 % (42.0-52.0); Hemoglobin 8.3 g/dl (14.0-18.0); Immature Granulocytes # (auto) 0.02 K/uL (0.01-0.20); Immature Granulocytes % (auto) 0.3 %; Lymphocytes # (auto) 1.37 K/uL (1.2-3.4); Lymphocytes % (auto) 17.9 %; Mean Corpuscular Hemoglobin 27.6 pg (25.0-34.0); Mean Corpuscular Hgb Conc 32.3 g/dL (32.0-36.0); Mean Corpuscular Volume 85.4 fL (80.0-100.0); Mean Platelet Volume 9.7 fL (9.4-12.4); Monocytes # (auto) 0.66 K/uL (0.11-0.59); Monocytes % (auto) 8.6 %; Neutrophils % (auto) 71.9 %; Platelet Count 216 K/uL (130-400); RDW Coefficient of Variation 15.3 % (11.5-14.5); RDW Standard Deviation 47.6 fL (36.4-46.3); Red Blood Count 3.01 M/uL (4.70-6.10); White Blood Count 7.65 K/ul (4.8-10.8)
[2022-12-13 07:46] LABS: BUN Creatinine Ratio 12.4 (10-20); Calcium 8.2 mg/dl (8.6-10.3); Est GFR (African American) 53.8 ml/min; Est GFR (Non-African American) 46.4 ml/min; Potassium 4.1 mmol/L (3.5-5.1)
[2022-12-13 07:51] LABS: INR 1.5 (0.9-1.1); Prothrombin Time 16.2 Seconds (9.0-12.0)
[2022-12-13] MEDS: HYDROCORTISONE 10 MG TAB PO SCH ×2 (08:07→16:58)
[2022-12-13] MEDS: ASCORBIC ACID 500 MG TAB PO SCH (08:08)
[2022-12-13] MEDS: MONTELUKAST SODIUM 10 MG TABLET PO SCH (08:08)
[2022-12-13] MEDS: MULTIVITAMIN TAB PO SCH (08:08)
[2022-12-13] MEDS: FLUTICASONE PROPIONATE NA SPR 16 GM BTL SCH (08:09)
[2022-12-13] MEDS: TOCOPHERYL, DL-ALPHA 400 UNITS 180 MG CAP PO SCH (08:10)
[2022-12-13] MEDS: MEMANTINE HCL 10 MG TAB PO SCH ×2 (08:10→20:24)
--- NOTE | 2022-12-13 08:41 | Urology Progress Note ---
Date of Service December 13, 2022 Assessment & Plan (1) Hematuria: (2) Prostate cancer: Plan Gross hematuria in the setting of known radiation cystitis and anticoagulation secondary to history of clotting disorder Unfortunately were in the difficult situation of significant bleeding but required anticoagulation Short-term, I think the best bet would be to hold anticoagulation to allow his bleeding to resolve Return to the OR may be low yield given the standard course with radiation cystitis and the high likelihood that his bleeding is from diffuse venous ooze (as had has been in the past) If he remains in a steady state for the next 24 to 48 hours, I would have a low threshold to change his catheter to a 20 Senegalese three-way Devlin catheter and instilled 1% alum via continuous bladder irrigation Fortunately, his CT from arrival did not show a copious amount of clot within the bladder He previously has discussed hyperbaric oxygen as an outpatient but this is a long-term solution not a short-term solution Admission and Anticipated Discharge Date Admission Date: December 12, 2022 Subjective Subjectively feeling well this morning No abdominal discomfort Catheter has been draining adequately Had nearly 2 L of urine output overnight His hemoglobin has remained stable, his kidney function has improved His anticoagulation has been held but his INR still is 1.5 as of this morninganticipate another day or 2 before we see further improvement Physical Exam Physical Exam: Catheter well-positioned Abdomen soft No suprapubic or CVA tenderness Mentating well Urine still with maroon coloration but no clots within the tubing Results & Data Vital Signs (Past 12 Hours) Vital Signs Temp Pulse Pulse Pulse Resp BP BP 12/13/22 07:24 36.4 C L 69 16 154/66 H 12/13/22 03:28 17 12/13/22 02:45 70 18 154/75 H 12/12/22 23:10 75 12/12/22 22:36 36.8 C 79 16 147/70 H 12/12/22 22:15 36.8 C 73 18 143/72 H 12/12/22 22:21 86 19 12/12/22 22:15 86 16 12/12/22 21:15 36.7 C 70 16 148/72 H 12/12/22 20:45 36.8 C 72 18 125/67 Pulse Ox O2 Del Method FiO2 12/13/22 07:24 98 Room Air 12/13/22 03:28 96 21 12/13/22 02:45 98 Room Air, BiPAP 12/12/22 23:10 12/12/22 22:36 97 12/12/22 22:15 97 12/12/22 22:21 97 21 12/12/22 22:15 97 Room Air 12/12/22 21:15 98 12/12/22 20:45 97 PG Care Time/CCT Total # of Minutes Spent Total Time Spent with Patient: Total time spent is greater than 50% in coordination of care (as documented) at patient's floor/unit and/or counseling patient: Coding Level of Care Code 06827 SUB INP/OBS CARE 2/35MIN Diagnoses Hematuria R31.0 Hematuria type: gross Prostate cancer C61 (1) Hematuria Hematuria type: gross Qualified Code(s): R31.0 - Gross hematuria
[2022-12-13] MEDS ORDERED: HYDROCORTISONE 10 MG TAB PO SCH (09:30)
--- NOTE | 2022-12-13 12:03 | Hospitalist Progress Note ---
Date of Service December 13, 2022 Assessment & Plan (1) Gross hematuria: Plan: History of prostate cancer about 5 years ago and status post 44 radiation treatment and 4 infusion treatment He has been complaining of hematuria for the last 3 months Was seen by urology clinic on and the postvoid residual was 48 mL-apparent UA at that time did not show any infection Continues to have ongoing hematuria and was unable to void this morning and came to emergency room Also having shortness of breath which has been worse recently for the last 1 or 2 weeks without any chest pain Hemoglobin noted to be 7.9 today it dropped from 10.3 on of this month CT of the abdomen and pelvis did show bladder wall thickening with possible clot in the bladder but no hydronephrosis Devlin catheter was placed in and he was admitted to [facility] telemetry unit for continuation of care We will hold Coumadin for now and give a very small dose of vitamin K IV Monitor H&H and transfuse if further drop of hemoglobin. Urologist was consulted He was given ceftriaxone to cover possible UTI Nocturia seems to be improving Acute blood loss anemia Secondary to gross hematuria as above Received 1 unit of blood transfusion Hemoglobin went up to 8.3 from 7.5 on admission We will monitor CBC Bladder outlet obstruction with hematuria History of prostate cancer Devlin catheter in place Urology consult-appreciate input and recommendation (2) Prostate cancer: Plan: History of prostate cancer as above Now coming with bladder outlet obstruction with hematuria Has had treatment with 44 radiation and 4 infusion (3) History of pulmonary embolism: Plan: And deep venous thrombosis on Coumadin INR is 2.1 INR is 1.5 today and will keep holding Coumadin for now The risk and benefit of holding Coumadin was discussed in length and clearly with the patient (4) History of DVT (deep vein thrombosis): Plan: As above (5) Aortic stenosis: Plan: History of aortic stenosis ECHO-Echo was done on of this month showed normal LV size and systolic function with EF of 60 to 65%, no regional wall motion abnormalities, moderate concentric LVH, mild aortic stenosis, mild mitral regurgitation, mildly dilated ascending aorta of 4.4 cm, small pericardial effusion without tamponade, no significant change compared with prior study of 06/16/2001 Has not been having any chest pain and/or palpitation (6) COPD (chronic obstructive pulmonary disease): Plan: Has COPD and has been getting 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 No acute exacerbation (7) Radiation cystitis: Plan: Could have radiation cystitis Obstructive sleep apnea Has been on trilogy As an outpatient the patient is waiting for possible hyperbaric oxygen therapy- has had cardiac evaluation and cleared, undergoing pulmonary evaluation before the therapy if planned by the provider CALLIE Baxter remains stable Admission and Anticipated Discharge Date Admission Date: December 12, 2022 Subjective 12/13/2022 The patient was seen and examined in medical telemetry unit He has been feeling a little better since admission The dario hematuria seems to be improving Denies any other symptoms Review of Systems Review of Systems: All systems reviewed and are unremarkable except as noted below Genitourinary: + dysuria and + hematuria Physical Exam Physical Exam: Lying in bed comfortably Constitutional: well developed, well nourished and + ill appearing Eyes: PERRL, conjunctivae normal, anicteric sclerae ENMT: external ear and nose normal, oropharynx normal Neck: trachea midline, no thyromegaly Respiratory: no respiratory distress Auscultation: + diminished lung sounds; no crackles Cardiovascular: Rate/Rhythm: regular rate and regular rhythm; not tachycardic Heart Sounds: normal S1, normal S2 and + murmur Extremities: + edema (1+ edema bilaterally,chronic) Gastrointestinal (Abdomen): Inspection/Auscultation: normal bowel sounds; abdomen not distended Percussion/Palpation: abdomen soft; abdomen nontender Musculoskeletal: No acute arthritis involving any of the joints Neurologic: normal touch/pain/proprioception and moves all extremities; no focal motor deficits Psychiatric: A+Ox3, euthymic affect Lymphatic: no cervical or axillary lymphadenopathy Results & Data Results & Data Vital Signs (Past 12 Hours) Vital Signs Temp Pulse Pulse Pulse Resp BP Pulse Ox 12/13/22 11:39 36.6 C 70 18 98 12/13/22 08:00 70 12/13/22 07:24 36.4 C L 69 16 154/66 H 98 12/13/22 03:28 17 96 12/13/22 02:45 70 18 154/75 H 98 O2 Del Method FiO2 12/13/22 11:39 Room Air 12/13/22 08:00 12/13/22 07:24 Room Air 12/13/22 03:28 21 12/13/22 02:45 Room Air, BiPAP Laboratory Results Short CBC 12/12/22 12/12/22 12/13/22 Range/Units 11:59 16:27 06:19 WBC 5.95 7.65 (4.8-10.8) K/ul Hgb 7.9 L 7.5 L 8.3 L (14.0-18.0) g/dl Hct 25.1 L 24.2 L 25.7 L (42.0-52.0) % Plt Count 231 216 (130-400) K/uL BMP 12/12/22 12/13/22 11:59 06:19 Sodium 139 141 Potassium 3.9 4.1 Chloride 107 109 H Carbon Dioxide 24 27 BUN 22 18 Creatinine 1.71 H 1.45 H Glucose 127 H 95 Calcium 8.7 8.2 L Liver Function 12/12/22 Range/Units 11:59 Total Bilirubin 0.4 (0.2-1.0) mg/dl AST 14 (13-39) U/L ALT 18 (7-52) U/L Alkaline Phosphatase 61 (34-104) U/L Albumin 3.8 (3.4-5.0) gm/dl Urine 12/12/22 Range/Units 12:12 Urine Color Red Urine Appearance Cloudy A (Clear) Urine pH 6.5 (4.5-7.5) Ur Specific [place] 1.016 (1.000-1.030) Urine Protein 3+ H (Negative) Urine Glucose (UA) Negative (Negative) Medications Administered Current Inpatient Medications Albuterol (Albuterol Hfa 8 Gm Inhaler) 2 puffs INH Q6H PRN PRN Reason: shortness of breath or wheezing Stop: 01/11/23 19:07 Ascorbic Acid (Ascorbic Acid 500 Mg Tab) 1,000 mg PO QAM TAWNY Stop: 01/12/23 08:59 Last Admin: 12/13/22 08:08 Dose: 1,000 mg Donepezil HCl (Donepezil Hcl 10 Mg Tab) 10 mg PO QPM TAWNY Stop: 01/11/23 20:59 Last Admin: 12/12/22 20:49 Dose: 10 mg Fluticasone Furoate (Fluticasone Furoate 200mcg 14 Puffs/Inhaler) 1 puffs INH QPM TAWNY Stop: 01/11/23 20:59 Last Admin: 12/12/22 22:13 Dose: 1 puffs Fluticasone Propionate (Fluticasone Propionate Na Spr 16 Gm Btl) 2 sprays NA DAILY [facility] Stop: 01/12/23 08:59 Last Admin: 12/13/22 08:09 Dose: 2 sprays Hydrocortisone (Hydrocortisone 10 Mg Tab) 10 mg PO TODAY@1700 [facility] Stop: 01/11/23 20:14 Last Admin: 12/12/22 20:49 Dose: 10 mg Hydrocortisone (Hydrocortisone 10 Mg Tab) 20 mg PO TODAY@0930 [facility] Stop: 01/12/23 09:29 Last Admin: 12/13/22 08:07 Dose: 20 mg Ceftriaxone Sodium 2,000 mg/ (Dextrose) 70 mls @ 100 mls/hr IV Q24H [facility]; Protocol Stop: 12/23/22 12:59 Memantine (Memantine Hcl 10 Mg Tab) 10 mg PO BID [facility] Stop: 01/11/23 20:59 Last Admin: 12/13/22 08:10 Dose: 10 mg Montelukast Sodium (Montelukast Sodium 10 Mg Tablet) 10 mg PO DAILY TAWNY Stop: 01/12/23 08:59 Last Admin: 12/13/22 08:08 Dose: 10 mg Multivitamins (Multivitamin Tab) 1 tab PO DAILY TAWNY Stop: 01/12/23 08:59 Last Admin: 12/13/22 08:08 Dose: 1 tab Umeclidinium/Vilanterol (Umeclidinium/Vilanterol 62.5/25mcg 7 Puffs/Inhaler) 1 puffs INH QPM TAWNY Stop: 01/11/23 20:59 Last Admin: 12/12/22 22:14 Dose: 1 puffs Vitamin D (Cholecalciferol 5,000 Units 125 Mcg Tab) 5,000 units PO QPM TAWNY Stop: 01/11/23 20:59 Last Admin: 12/12/22 20:49 Dose: 5,000 units Vitamin E (Tocopheryl, Dl-Alpha 400 Units 180 Mg Cap) 400 units PO QAM TAWNY Stop: 01/12/23 08:59 Last Admin: 12/13/22 08:10 Dose: 400 units
[2022-12-13] MEDS: cefTRIAXone SODIUM 2,000 MG in DEXTROSE 5% 50 ML IV SCH (13:15)
[2022-12-13] MEDS: FLUTICASONE FUROATE 200MCG 14 PUFFS/INHALER INH SCH (20:24)
[2022-12-13] MEDS: UMECLIDINIUM/VILANTEROL 62.5/25MCG 7 PUFFS/INHALER INH SCH (20:24)
[2022-12-13] MEDS: CHOLECALCIFEROL 5,000 UNITS 125 MCG TAB PO SCH (20:24)
[2022-12-13] MEDS: DONEPEZIL HCL 10 MG TAB PO SCH (20:24)
[2022-12-14 07:06] LABS: Basophils # (auto) 0.02 K/uL (0-0.2); Basophils % (auto) 0.3 %; Eosinophils % (auto) 1.4 %; Hematocrit (blood only) 24.5 % (42.0-52.0); Immature Granulocytes # (auto) 0.02 K/uL (0.01-0.20); Immature Granulocytes % (auto) 0.3 %; Mean Corpuscular Hemoglobin 27.1 pg (25.0-34.0); Mean Corpuscular Hgb Conc 32.7 g/dL (32.0-36.0); Mean Corpuscular Volume 83.1 fL (80.0-100.0); Mean Platelet Volume 9.1 fL (9.4-12.4); Monocytes # (auto) 0.66 K/uL (0.11-0.59); Monocytes % (auto) 9.4 %; Neutrophils # (auto) 4.79 K/uL (1.40-6.50); Neutrophils % (auto) 68.6 %; Platelet Count 203 K/uL (130-400); RDW Coefficient of Variation 15.1 % (11.5-14.5); RDW Standard Deviation 45.8 fL (36.4-46.3); Red Blood Count 2.95 M/uL (4.70-6.10); White Blood Count 6.99 K/ul (4.8-10.8)
[2022-12-14 07:28] LABS: BUN Creatinine Ratio 13.1 (10-20); Calcium 8.1 mg/dl (8.6-10.3); Creatinine Clr Calc Pharmacy 56.8 ml/min; Est GFR (African American) 50.4 ml/min; Est GFR (Non-African American) 43.5 ml/min; Potassium 3.8 mmol/L (3.5-5.1)
[2022-12-14] MEDS: FLUTICASONE PROPIONATE NA SPR 16 GM BTL SCH (08:14)
[2022-12-14] MEDS: MEMANTINE HCL 10 MG TAB PO SCH ×2 (08:14→21:27)
[2022-12-14] MEDS: TOCOPHERYL, DL-ALPHA 400 UNITS 180 MG CAP PO SCH (08:15)
[2022-12-14] MEDS: MULTIVITAMIN TAB PO SCH (08:15)
[2022-12-14] MEDS: MONTELUKAST SODIUM 10 MG TABLET PO SCH (08:15)
[2022-12-14] MEDS: ASCORBIC ACID 500 MG TAB PO SCH (08:15)
[2022-12-14] MEDS: HYDROCORTISONE 10 MG TAB PO SCH ×2 (08:17→16:42)
--- NOTE | 2022-12-14 10:54 | Urology Progress Note ---
Date of Service December 14, 2022 Assessment & Plan (1) Hematuria: (2) Acute urinary retention: Plan Gross hematuria in the setting of known radiation cystitis and anticoagulation secondary to history of clotting disorder Afebrile and hemodynamically stable. Labs show no leukocytosis, creatinine 1.53, hemoglobin 8 (8.3 yesterday). Urine culture 12/12 negative, on Ceftriaxone. Anticoagulation on hold. Urine was light red with no clots at the time of my exam. Will continue to mon itor. Can hand irrigate as needed for clots, retention, suprapubic pain. Will plan for continued monitoring today. Return to the OR may be low yield given the standard course with radiation cysti tis and the high likelihood that his bleeding is from diffuse venous ooze (as had has been in the past). If he remains in a steady state for the next 24-48 hours, will consider exchanging his catheter to a 20 Kisw[place]ili three-way Devlin catheter and instilled 1% alum via continuous bladder irrigation. Has previously discussed hyperbaric oxygen as an outpatient, but this is a long- term solution not a short-term. Continue to trend labs/H&H, transfuse as felt necessary per primary team. Continue supportive care. Urology will follow closely. Admission and Anticipated Discharge Date Admission Date: December 12, 2022 Subjective Patient examined at bedside this AM. Awake, resting in bed on arrival. No acute distress. Devlin catheter intact, draining light red urine. No clots noted at time of exam. Nursing hand irrigated earlier this morning. 650ml urine output overnight. No abdominal, flank, or suprapubic discomfort. No fevers. Review of Systems Constitutional: as per Subjective / HPI Gastrointestinal: as per Subjective / HPI Genitourinary: + as per Subjective / HPI Physical Exam Constitutional: no acute distress Respiratory: no respiratory distress and no labored breathing Gastrointestinal (Abdomen): Percussion/Palpation: abdomen soft; abdomen nontender Skin: No visible rashes or lesions to exposed skin areas Neurologic: awake Psychiatric: Orientation: alert Genitourinary: no CVA tenderness Urine is light to dark red in color. No clots noted at time of exam. Results & Data Vital Signs (Past 12 Hours) Vital Signs Temp Pulse Pulse Resp BP Pulse Ox O2 Del Method 12/14/22 08:00 73 12/14/22 07:58 36.9 C 75 16 138/72 97 Room Air 12/14/22 03:02 36.7 C 67 20 163/92 H 99 Room Air 12/13/22 23:19 36.8 C 68 20 143/71 H 97 Room Air 12/13/22 22:49 70 18 95 FiO2 12/14/22 08:00 12/14/22 07:58 12/14/22 03:02 12/13/22 23:19 12/13/22 22:49 21 PG Care Time/CCT Total # of Minutes Spent Total Time Spent with Patient: Total time spent is greater than 50% in coordination of care (as documented) at patient's floor/unit and/or counseling patient: Coding Level of Care Code 02260 SUB INP/OBS CARE 2/35MIN Diagnoses Hematuria R31.0 Hematuria type: gross Acute urinary retention R33.8 (1) Hematuria Hematuria type: gross Qualified Code(s): R31.0 - Gross hematuria
--- NOTE | 2022-12-14 14:00 | Hospitalist Progress Note ---
Date of Service December 14, 2022 Assessment & Plan (1) Gross hematuria: Plan: History of prostate cancer about 5 years ago and status post 44 radiation treatment and 4 infusion treatment He has been complaining of hematuria for the last 3 months Was seen by urology clinic on and the postvoid residual was 48 mL-apparent UA at that time did not show any infection Continues to have ongoing hematuria and was unable to void this morning and came to emergency room Also having shortness of breath which has been worse recently for the last 1 or 2 weeks without any chest pain Hemoglobin noted to be 7.9 today it dropped from 10.3 on of this month CT of the abdomen and pelvis did show bladder wall thickening with possible clot in the bladder but no hydronephrosis Devlin catheter was placed in and he was admitted to [facility] telemetry unit for continuation of care We will hold Coumadin for now and give a very small dose of vitamin K IV Monitor H&H and transfuse if further drop of hemoglobin. Urologist was consulted He was given ceftriaxone to cover possible UTI Not nocturia, hematuria has been improving Acute blood loss anemia Secondary to gross hematuria as above Received 1 unit of blood transfusion Hemoglobin went up to 8.3 from 7.5 on admission We will monitor CBC-hemoglobin remains stable at around 8 Hematuria seems to be improving and will monitor hemoglobin Bladder outlet obstruction with hematuria History of prostate cancer Devlin catheter in place Urology consult-appreciate input and recommendation Change the Devlin catheter as per the urologist (2) Prostate cancer: Plan: History of prostate cancer as above Now coming with bladder outlet obstruction with hematuria Has had treatment with 44 radiation and 4 infusion (3) History of pulmonary embolism: Plan: And deep venous thrombosis on Coumadin INR is 2.1 INR is 1.5 today and will keep holding Coumadin for now The risk and benefit of holding Coumadin was discussed in length and clearly with the patient (4) History of DVT (deep vein thrombosis): Plan: As above (5) Aortic stenosis: Plan: History of aortic stenosis ECHO-Echo was done on of this month showed normal LV size and systolic function with EF of 60 to 65%, no regional wall motion abnormalities, moderate concentric LVH, mild aortic stenosis, mild mitral regurgitation, mildly dilated ascending aorta of 4.4 cm, small pericardial effusion without tamponade, no significant change compared with prior study of 06/16/2001 Has not been having any chest pain and/or palpitation No acute pain in the chest (6) COPD (chronic obstructive pulmonary disease): Plan: Has COPD and 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 No acute exacerbation (7) Radiation cystitis: Plan: Could have radiation cystitis Trying to have hyperbaric oxygen administration as an outpatient Obstructive sleep apnea Has been on trilogy As an outpatient the patient is waiting for possible hyperbaric oxygen therapy- has had cardiac evaluation and cleared, undergoing pulmonary evaluation before the therapy if planned by the provider CALLIE Baxter remains stable Admission and Anticipated Discharge Date Admission Date: December 14, 2022 Subjective 12/13/2022 The patient was seen and examined in medical telemetry unit He has been feeling a little better since admission The dario hematuria seems to be improving Denies any other symptoms 12/14/2022 The patient was seen and examined in medical telemetry unit He has been complaining of some diarrhea but otherwise denies any significant symptoms Hematuria seems to be improving Review of Systems Review of Systems: All systems reviewed and are unremarkable except as noted below Genitourinary: + dysuria and + hematuria Physical Exam Physical Exam: Lying in bed comfortably Constitutional: well developed, well nourished and + ill appearing Eyes: PERRL, conjunctivae normal, anicteric sclerae ENMT: external ear and nose normal, oropharynx normal Neck: trachea midline, no thyromegaly Respiratory: no respiratory distress Auscultation: + diminished lung sounds; no crackles Cardiovascular: Rate/Rhythm: regular rate and regular rhythm; not tachycardic Heart Sounds: normal S1, normal S2 and + murmur Extremities: + edema (1+ edema bilaterally,chronic) Gastrointestinal (Abdomen): Inspection/Auscultation: normal bowel sounds; abdomen not distended Percussion/Palpation: abdomen soft; abdomen nontender Musculoskeletal: No acute arthritis involving any of the joint Neurologic: normal touch/pain/proprioception and moves all extremities; no focal motor deficits Psychiatric: A+Ox3, euthymic affect Lymphatic: no cervical or axillary lymphadenopathy Results & Data Results & Data Vital Signs (Past 12 Hours) Vital Signs Temp Pulse Pulse Pulse Resp BP Pulse Ox 12/14/22 12:08 36.7 C 76 16 125/74 97 12/14/22 08:00 73 12/14/22 07:58 36.9 C 75 16 138/72 97 12/14/22 03:02 36.7 C 67 20 163/92 H 99 O2 Del Method 12/14/22 12:08 Room Air 12/14/22 08:00 12/14/22 07:58 Room Air 12/14/22 03:02 Room Air Laboratory Results Short CBC 12/14/22 Range/Units 06:50 WBC 6.99 (4.8-10.8) K/ul Hgb 8.0 L (14.0-18.0) g/dl Hct 24.5 L (42.0-52.0) % Plt Count 203 (130-400) K/uL BMP 12/14/22 06:50 Sodium 140 Potassium 3.8 Chloride 108 H Carbon Dioxide 25 BUN 20 Creatinine 1.53 H Glucose 96 Calcium 8.1 L Medications Administered Current Inpatient Medications Albuterol (Albuterol Hfa 8 Gm Inhaler) 2 puffs INH Q6H PRN PRN Reason: shortness of breath or wheezing Stop: 01/11/23 19:07 Ascorbic Acid (Ascorbic Acid 500 Mg Tab) 1,000 mg PO QAM TAWNY Stop: 01/12/23 08:59 Last Admin: 12/14/22 08:15 Dose: 1,000 mg Donepezil HCl (Donepezil Hcl 10 Mg Tab) 10 mg PO QPM TAWNY Stop: 01/11/23 20:59 Last Admin: 12/13/22 20:24 Dose: 10 mg Fluticasone Furoate (Fluticasone Furoate 200mcg 14 Puffs/Inhaler) 1 puffs INH QPM TAWNY Stop: 01/11/23 20:59 Last Admin: 12/13/22 20:24 Dose: 1 puffs Fluticasone Propionate (Fluticasone Propionate Na Spr 16 Gm Btl) 2 sprays NA DAILY TAWNY Stop: 01/12/23 08:59 Last Admin: 12/14/22 08:14 Dose: 2 sprays Hydrocortisone (Hydrocortisone 10 Mg Tab) 10 mg PO TODAY@1700 TAWNY Stop: 01/11/23 20:14 Last Admin: 12/13/22 16:58 Dose: 10 mg Hydrocortisone (Hydrocortisone 10 Mg Tab) 20 mg PO TODAY@0930 [facility] Stop: 01/12/23 09:29 Last Admin: 12/14/22 08:17 Dose: 20 mg Ceftriaxone Sodium 2,000 mg/ (Dextrose) 70 mls @ 100 mls/hr IV Q24H [facility]; Protocol Stop: 12/23/22 12:59 Last Infusion: 12/13/22 14:00 Dose: Infused Loperamide HCl (Loperamide Hcl 2 Mg Cap) 2 mg PO Q3H PRN PRN Reason: Diarrhea Stop: 01/13/23 13:40 Memantine (Memantine Hcl 10 Mg Tab) 10 mg PO BID TAWNY Stop: 01/11/23 20:59 Last Admin: 12/14/22 08:14 Dose: 10 mg Montelukast Sodium (Montelukast Sodium 10 Mg Tablet) 10 mg PO DAILY TAW[facility] Stop: 01/12/23 08:59 Last Admin: 12/14/22 08:15 Dose: 10 mg Multivitamins (Multivitamin Tab) 1 tab PO DAILY TAWNY Stop: 01/12/23 08:59 Last Admin: 12/14/22 08:15 Dose: 1 tab Umeclidinium/Vilanterol (Umeclidinium/Vilanterol 62.5/25mcg 7 Puffs/Inhaler) 1 puffs INH QPM TAWNY Stop: 01/11/23 20:59 Last Admin: 12/13/22 20:24 Dose: 1 puffs Vitamin D (Cholecalciferol 5,000 Units 125 Mcg Tab) 5,000 units PO QPM TAWNY Stop: 01/11/23 20:59 Last Admin: 12/13/22 20:24 Dose: 5,000 units Vitamin E (Tocopheryl, Dl-Alpha 400 Units 180 Mg Cap) 400 units PO QAM TAWNY Stop: 01/12/23 08:59 Last Admin: 12/14/22 08:15 Dose: 400 units
[2022-12-14] MEDS: cefTRIAXone SODIUM 2,000 MG in DEXTROSE 5% 50 ML IV SCH (14:18)
[2022-12-14] MEDS: LOPERAMIDE HCL 2 MG CAP PO PRN ×2 (14:19→22:12)
[2022-12-14] MEDS: CHOLECALCIFEROL 5,000 UNITS 125 MCG TAB PO SCH (21:27)
[2022-12-14] MEDS: DONEPEZIL HCL 10 MG TAB PO SCH (21:27)
[2022-12-14] MEDS: UMECLIDINIUM/VILANTEROL 62.5/25MCG 7 PUFFS/INHALER INH SCH (21:27)
[2022-12-14] MEDS: FLUTICASONE FUROATE 200MCG 14 PUFFS/INHALER INH SCH (21:28)
[2022-12-15] MEDS: LOPERAMIDE HCL 2 MG CAP PO PRN (04:17)
[2022-12-15 08:06] LABS: Basophils # (auto) 0.03 K/uL (0-0.2); Basophils % (auto) 0.4 %; Eosinophils # (auto) 0.14 K/uL (0-0.50); Eosinophils % (auto) 1.7 %; Hemoglobin 8.4 g/dl (14.0-18.0); Immature Granulocytes # (auto) 0.04 K/uL (0.01-0.20); Immature Granulocytes % (auto) 0.5 %; Lymphocytes # (auto) 1.22 K/uL (1.2-3.4); Lymphocytes % (auto) 14.9 %; Mean Corpuscular Hgb Conc 31.1 g/dL (32.0-36.0); Mean Corpuscular Volume 86.8 fL (80.0-100.0); Mean Platelet Volume 9.6 fL (9.4-12.4); Monocytes # (auto) 0.71 K/uL (0.11-0.59); Monocytes % (auto) 8.7 %; Neutrophils # (auto) 6.05 K/uL (1.40-6.50); Neutrophils % (auto) 73.8 %; Platelet Count 259 K/uL (130-400); RDW Coefficient of Variation 15.3 % (11.5-14.5); Red Blood Count 3.11 M/uL (4.70-6.10); White Blood Count 8.19 K/ul (4.8-10.8)
[2022-12-15 08:28] LABS: BUN Creatinine Ratio 14.8 (10-20); Calcium 8.5 mg/dl (8.6-10.3); Creatinine Clr Calc Pharmacy 49.1 ml/min; Est GFR (African American) 42.6 ml/min; Est GFR (Non-African American) 36.7 ml/min; Potassium 3.7 mmol/L (3.5-5.1)
[2022-12-15] MEDS: MULTIVITAMIN TAB PO SCH (08:31)
[2022-12-15] MEDS: TOCOPHERYL, DL-ALPHA 400 UNITS 180 MG CAP PO SCH (08:31)
[2022-12-15] MEDS: MONTELUKAST SODIUM 10 MG TABLET PO SCH (08:31)
[2022-12-15] MEDS: MEMANTINE HCL 10 MG TAB PO SCH ×2 (08:31→22:18)
[2022-12-15] MEDS: ASCORBIC ACID 500 MG TAB PO SCH (08:31)
[2022-12-15] MEDS: FLUTICASONE PROPIONATE NA SPR 16 GM BTL SCH (08:32)
[2022-12-15] MEDS: HYDROCORTISONE 10 MG TAB PO SCH ×2 (08:32→16:59)
[2022-12-15] MEDS ORDERED: LIDOCAINE 2% JELLY 5 ML TUBE EXT ONE (11:36)
--- NOTE | 2022-12-15 12:25 | Urology Progress Note ---
Date of Service December 15, 2022 Assessment & Plan (1) Hematuria: (2) Acute urinary retention: Plan Gross hematuria in the setting of known radiation cystitis and anticoagulation Afebrile and hemodynamically stable. Labs show no leukocytosis, creatinine 1.76, hemoglobin 8.4. Urine culture 12/12 negative, on Ceftriaxone. Continues to have persistent hematuria. His Devlin catheter was exchanged to a 22Fr 3-way catheter without difficulty using sterile technique. Pt tolerated well. Continuous bladder irrigation initiated. Will start alum irrigation when available from pharmacy. Continue to monitor. Anticoagulation on holdto allow bleeding to resolve. Ideally will resume as soon as possible. Continue to trend labs. Continue supportive care and antibiotics. Urology will follow closely. Admission and Anticipated Discharge Date Admission Date: December 14, 2022 Supervising Physician Co-Signing Physician Notes Catheter exchanged today and 1% alum irrigation initiated Tolerating well right now With moderate speed CBI he cleared immediately and with slow CBI he maintains clear urine We will plan to run this through the night tonight and if his urine remains clear start anticoagulation back tomorrow. I would like to continue CBI with alum for 1 day after starting his anticoagulation and then if he remains clear we can consider stopping it potentially pulling his catheter before discharging him home I have explained this plan to him and he seems to be in agreement Subjective Pt examined at bedside this AM. Awake, resting in bed on arrival. No acute distress. Devlin catheter intact, draining dark red urine. No clots noted at time of exam. 350ml urine output overnight. No abdominal, flank, or suprapubic discomfort. No fevers. Review of Systems Constitutional: as per Subjective / HPI Gastrointestinal: as per Subjective / HPI and + diarrhea/loose stools Genitourinary: + as per Subjective / HPI Physical Exam Constitutional: no acute distress Respiratory: no respiratory distress and no labored breathing Gastrointestinal (Abdomen): Percussion/Palpation: abdomen soft; abdomen nontender Skin: No visible rashes or lesions to exposed skin areas Neurologic: awake Psychiatric: Orientation: alert Genitourinary: no CVA tenderness Urine is dark red in color. No clots noted at time of exam. Results & Data Vital Signs (Past 12 Hours) Vital Signs Temp Pulse Pulse Resp BP Pulse Ox O2 Del Method 12/15/22 11:06 37.0 C 78 20 115/66 96 Room Air 12/15/22 08:00 75 12/15/22 08:00 37.1 C 72 20 159/78 H 97 Room Air 12/15/22 03:17 36.8 C 82 20 157/82 H 99 Room Air, CPAP 12/15/22 02:07 75 14 95 FiO2 12/15/22 11:06 12/15/22 08:00 12/15/22 08:00 12/15/22 03:17 12/15/22 02:07 21 PG Care Time/CCT Total # of Minutes Spent Total Time Spent with Patient: Total time spent is greater than 50% in coordination of care (as documented) at patient's floor/unit and/or counseling patient: Coding Level of Care Code 96553 SUB INP/OBS CARE 2/35MIN Diagnoses Hematuria R31.0 Hematuria type: gross Acute urinary retention R33.8 (1) Hematuria Hematuria type: gross Qualified Code(s): R31.0 - Gross hematuria
[2022-12-15] MEDS: AMMONIUM ALUM 30 GM in SODIUM CHLORIDE 0.9% IRRIG 3,000 ML IR SCH ×2 (13:16→22:20)
[2022-12-15] MEDS: cefTRIAXone SODIUM 2,000 MG in DEXTROSE 5% 50 ML IV SCH (13:16)
[2022-12-15] MEDS: LIDOCAINE 2% JELLY 5 ML TUBE EXT SCH (13:17)
[2022-12-15] MEDS ORDERED: HYDROmorphone INJ 0.5 MG/0.5 ML SYR IV STA (13:37)
--- NOTE | 2022-12-15 13:47 | Hospitalist Progress Note ---
Date of Service December 15, 2022 Assessment & Plan (1) Gross hematuria: Plan: History of prostate cancer about 5 years ago and status post 44 radiation treatment and 4 infusion treatment He has been complaining of hematuria for the last 3 months Was seen by urology clinic on and the postvoid residual was 48 mL-apparent UA at that time did not show any infection Continues to have ongoing hematuria and was unable to void this morning and came to emergency room Also having shortness of breath which has been worse recently for the last 1 or 2 weeks without any chest pain Hemoglobin noted to be 7.9 today it dropped from 10.3 on of this month CT of the abdomen and pelvis did show bladder wall thickening with possible clot in the bladder but no hydronephrosis Devlin catheter was placed in and he was admitted to [facility] telemetry unit for continuation of care We will hold Coumadin for now and give a very small dose of vitamin K IV Monitor H&H and transfuse if further drop of hemoglobin. Urologist was consulted He was given ceftriaxone to cover possible UTI--no infection and ceftriaxone will be discontinued from tomorrow Not nocturia, hematuria has been improving Three-way Devlin catheter has been put in by urologist Still having hematuria but has decreased in severity Acute blood loss anemia Secondary to gross hematuria as above Received 1 unit of blood transfusion Hemoglobin went up to 8.3 from 7.5 on admission We will monitor CBC-hemoglobin remains stable at around 8 Hematuria seems to be improving and will monitor hemoglobin Hemoglobin remains stable at more than 8 and the patient remains asymptomatic Bladder outlet obstruction with hematuria History of prostate cancer Devlin catheter in place Urology consult-appreciate input and recommendation Change the Devlin catheter as per the urologist As above (2) Prostate cancer: Plan: History of prostate cancer as above Now coming with bladder outlet obstruction with hematuria Has had treatment with 44 radiation and 4 infusion LFTs are normal (3) History of pulmonary embolism: Plan: And deep venous thrombosis on Coumadin INR is 2.1 INR is 1.5 today and will keep holding Coumadin for now The risk and benefit of holding Coumadin was discussed in length and clearly with the patient (4) History of DVT (deep vein thrombosis): Plan: As above (5) Aortic stenosis: Plan: History of aortic stenosis ECHO-Echo was done on of this month showed normal LV size and systolic function with EF of 60 to 65%, no regional wall motion abnormalities, moderate concentric LVH, mild aortic stenosis, mild mitral regurgitation, mildly dilated ascending aorta of 4.4 cm, small pericardial effusion without tamponade, no significant change compared with prior study of 06/16/2001 Has not been having any chest pain and/or palpitation No acute pain in the chest (6) COPD (chronic obstructive pulmonary disease): Plan: Has COPD 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 No acute exacerbation (7) Radiation cystitis: Plan: Could have radiation cystitis Trying to have hyperbaric oxygen administration as an outpatient Obstructive sleep apnea Has been on trilogy As an outpatient the patient is waiting for possible hyperbaric oxygen therapy- has had cardiac evaluation and cleared, undergoing pulmonary evaluation before the therapy if planned by the provider CALLIE Baxter remains stable Admission and Anticipated Discharge Date Admission Date: December 14, 2022 Subjective 12/13/2022 The patient was seen and examined in medical telemetry unit He has been feeling a little better since admission The dario hematuria seems to be improving Denies any other symptoms 12/14/2022 The patient was seen and examined in medical telemetry unit He has been complaining of some diarrhea but otherwise denies any significant symptoms Hematuria seems to be improving 12/15/2022 The patient was seen and examined in medical telemetry unit He has had three-way lumen catheter placed in by the urologist Has been complaining of severe pain in the penis Denied any other symptoms Local lidocaine given and also he received a dose of Dilaudid IV Review of Systems Review of Systems: All systems reviewed and are unremarkable except as noted below Genitourinary: + dysuria and + hematuria Physical Exam Physical Exam: Lying in bed comfortably Constitutional: well developed, well nourished and + ill appearing Eyes: PERRL, conjunctivae normal, anicteric sclerae ENMT: external ear and nose normal, oropharynx normal Neck: trachea midline, no thyromegaly Respiratory: no respiratory distress Auscultation: + diminished lung sounds; no crackles Cardiovascular: Rate/Rhythm: regular rate and regular rhythm; not tachycardic Heart Sounds: normal S1, normal S2 and + murmur Extremities: + edema (1+ edema bilaterally,chronic) Gastrointestinal (Abdomen): Inspection/Auscultation: normal bowel sounds; abdomen not distended Percussion/Palpation: abdomen soft; abdomen nontender Musculoskeletal: No acute arthritis involving any of the joint Neurologic: normal touch/pain/proprioception and moves all extremities; no focal motor deficits Psychiatric: A+Ox3, euthymic affect Lymphatic: no cervical or axillary lymphadenopathy Results & Data Results & Data Vital Signs (Past 12 Hours) Vital Signs Temp Pulse Pulse Resp BP Pulse Ox O2 Del Method 12/15/22 11:06 37.0 C 78 20 115/66 96 Room Air 12/15/22 08:00 75 12/15/22 08:00 37.1 C 72 20 159/78 H 97 Room Air 12/15/22 03:17 36.8 C 82 20 157/82 H 99 Room Air, CPAP 12/15/22 02:07 75 14 95 FiO2 12/15/22 11:06 12/15/22 08:00 12/15/22 08:00 12/15/22 03:17 12/15/22 02:07 21 Laboratory Results Short CBC 12/15/22 Range/Units 07:31 WBC 8.19 (4.8-10.8) K/ul Hgb 8.4 L (14.0-18.0) g/dl Hct 27.0 L (42.0-52.0) % Plt Count 259 (130-400) K/uL BMP 12/15/22 07:31 Sodium 140 Potassium 3.7 Chloride 107 Carbon Dioxide 25 BUN 26 H Creatinine 1.76 H Glucose 100 H Calcium 8.5 L Medications Administered Current Inpatient Medications Albuterol (Albuterol Hfa 8 Gm Inhaler) 2 puffs INH Q6H PRN PRN Reason: shortness of breath or wheezing Stop: 01/11/23 19:07 Ascorbic Acid (Ascorbic Acid 500 Mg Tab) 1,000 mg PO QAM TAWNY Stop: 01/12/23 08:59 Last Admin: 12/15/22 08:31 Dose: 1,000 mg Donepezil HCl (Donepezil Hcl 10 Mg Tab) 10 mg PO QPM TAWNY Stop: 01/11/23 20:59 Last Admin: 12/14/22 21:27 Dose: 10 mg Fluticasone Furoate (Fluticasone Furoate 200mcg 14 Puffs/Inhaler) 1 puffs INH QPM TAWNY Stop: 01/11/23 20:59 Last Admin: 12/14/22 21:28 Dose: 1 puffs Fluticasone Propionate (Fluticasone Propionate Na Spr 16 Gm Btl) 2 sprays NA DAILY [facility] Stop: 01/12/23 08:59 Last Admin: 12/15/22 08:32 Dose: Not Given Hydrocortisone (Hydrocortisone 10 Mg Tab) 10 mg PO TODAY@1700 [facility] Stop: 01/11/23 20:14 Last Admin: 12/14/22 16:42 Dose: 10 mg Hydrocortisone (Hydrocortisone 10 Mg Tab) 20 mg PO TODAY@0930 [facility] Stop: 01/12/23 09:29 Last Admin: 12/15/22 08:32 Dose: 20 mg Ceftriaxone Sodium 2,000 mg/ (Dextrose) 70 mls @ 100 mls/hr IV Q24H [facility]; Protocol Stop: 12/23/22 12:59 Last Admin: 12/15/22 13:16 Dose: 100 mls/hr Alum 30 gm/ Sodium Chloride 3,000 mls @ 0 mls/hr IR Q8H [facility] Stop: 12/18/22 11:14 Last Admin: 12/15/22 13:16 Dose: 500 mls/hr Lidocaine HCl (Lidocaine 2% Jelly 5 Ml Tube) 1 ml EXT PRN TAWNY Stop: 01/14/23 11:29 Last Admin: 12/15/22 13:17 Dose: 1 ml Loperamide HCl (Loperamide Hcl 2 Mg Cap) 2 mg PO Q3H PRN PRN Reason: Diarrhea Stop: 01/13/23 13:40 Last Admin: 12/15/22 04:17 Dose: 2 mg Memantine (Memantine Hcl 10 Mg Tab) 10 mg PO BID [facility] Stop: 01/11/23 20:59 Last Admin: 12/15/22 08:31 Dose: 10 mg Montelukast Sodium (Montelukast Sodium 10 Mg Tablet) 10 mg PO DAILY [facility] Stop: 01/12/23 08:59 Last Admin: 12/15/22 08:31 Dose: 10 mg Multivitamins (Multivitamin Tab) 1 tab PO DAILY [facility] Stop: 01/12/23 08:59 Last Admin: 12/15/22 08:31 Dose: 1 tab Umeclidinium/Vilanterol (Umeclidinium/Vilanterol 62.5/25mcg 7 Puffs/Inhaler) 1 puffs INH QPM [facility] Stop: 01/11/23 20:59 Last Admin: 12/14/22 21:27 Dose: 1 puffs Vitamin D (Cholecalciferol 5,000 Units 125 Mcg Tab) 5,000 units PO QPM [facility] Stop: 01/11/23 20:59 Last Admin: 12/14/22 21:27 Dose: 5,000 units Vitamin E (Tocopheryl, Dl-Alpha 400 Units 180 Mg Cap) 400 units PO QAM [facility] Stop: 01/12/23 08:59 Last Admin: 12/15/22 08:31 Dose: 400 units
[2022-12-15] MEDS: UMECLIDINIUM/VILANTEROL 62.5/25MCG 7 PUFFS/INHALER INH SCH (22:19)
[2022-12-15] MEDS: FLUTICASONE FUROATE 200MCG 14 PUFFS/INHALER INH SCH (22:19)
[2022-12-15] MEDS: CHOLECALCIFEROL 5,000 UNITS 125 MCG TAB PO SCH (22:20)
[2022-12-15] MEDS: DONEPEZIL HCL 10 MG TAB PO SCH (22:20)
[2022-12-15] MEDS: ACETAMINOPHEN 325 MG TAB PO PRN (22:21)
[2022-12-16] MEDS: oxyCODONE HCL IR 5 MG TAB (IMMEDIATE RELEASE) PO PRN (02:26)
[2022-12-16] MEDS: HYDROmorphone INJ 0.5 MG/0.5 ML SYR IV PRN (03:25)
[2022-12-16] MEDS: AMMONIUM ALUM 30 GM in SODIUM CHLORIDE 0.9% IRRIG 3,000 ML IR SCH ×2 (05:39→13:28)
[2022-12-16 07:45] LABS: Basophils # (auto) 0.03 K/uL (0-0.2); Basophils % (auto) 0.3 %; Eosinophils # (auto) 0.09 K/uL (0-0.50); Eosinophils % (auto) 0.8 %; Hematocrit (blood only) 26.3 % (42.0-52.0); Immature Granulocytes # (auto) 0.04 K/uL (0.01-0.20); Immature Granulocytes % (auto) 0.4 %; Lymphocytes # (auto) 1.34 K/uL (1.2-3.4); Lymphocytes % (auto) 11.8 %; Mean Corpuscular Hemoglobin 26.7 pg (25.0-34.0); Mean Corpuscular Hgb Conc 30.4 g/dL (32.0-36.0); Mean Corpuscular Volume 87.7 fL (80.0-100.0); Mean Platelet Volume 9.3 fL (9.4-12.4); Monocytes # (auto) 1.07 K/uL (0.11-0.59); Monocytes % (auto) 9.4 %; Neutrophils # (auto) 8.83 K/uL (1.40-6.50); Neutrophils % (auto) 77.3 %; Platelet Count 216 K/uL (130-400); RDW Coefficient of Variation 15.5 % (11.5-14.5); RDW Standard Deviation 48.6 fL (36.4-46.3)
--- NOTE | 2022-12-16 08:07 | Urology Progress Note ---
Date of Service December 16, 2022 Assessment & Plan (1) Hematuria: Plan: radiation cystitis - on alum CBI - cont for 24 hrs longer - ok to start anticoagulation today Admission and Anticipated Discharge Date Admission Date: December 14, 2022 Subjective Had a difficult night Catheter has been draining well CBI is very slow with alpha 1% His urine is largely cleared He has some dark-colored clot in the catheter bag but otherwise seems to be doing okay Did require some Dilaudid for painunclear if this pain was at the tip of his penis or somewhere else in his abdomen Physical Exam Physical Exam: slow cbi - with alum relatively clear Results & Data Vital Signs (Past 12 Hours) Vital Signs Temp Pulse Pulse Resp BP Pulse Ox O2 Del Method 12/16/22 03:18 38.1 C H 96 H 18 125/67 98 CPAP 12/15/22 22:00 82 12/15/22 23:35 36.9 C 75 18 147/76 H 97 Room Air PG Care Time/CCT Total # of Minutes Spent Total Time Spent with Patient: Total time spent is greater than 50% in coordination of care (as documented) at patient's floor/unit and/or counseling patient: Coding Level of Care Code 15998 SUB INP/OBS CARE 2/35MIN Diagnoses Hematuria R31.0 Hematuria type: gross (1) Hematuria Hematuria type: gross Qualified Code(s): R31.0 - Gross hematuria
[2022-12-16 08:09] LABS: Albumin Globulin Ratio 1.7 (0.9-2); Albumin Level 3.5 gm/dl (3.4-5.0); BUN Creatinine Ratio 18.8 (10-20); Bilirubin,Total 0.6 mg/dl (0.2-1.0); Calcium 8.2 mg/dl (8.6-10.3); Creatinine Clr Calc Pharmacy 50.5 ml/min; Est GFR (African American) 44.4 ml/min; Est GFR (Non-African American) 38.3 ml/min; Globulin 2.1 gm/dl (2.5-4.0); Total Protein 5.6 gm/dl (6.0-8.3)
[2022-12-16] MEDS: ASCORBIC ACID 500 MG TAB PO SCH (09:25)
[2022-12-16] MEDS: TOCOPHERYL, DL-ALPHA 400 UNITS 180 MG CAP PO SCH (09:25)
[2022-12-16] MEDS: FLUTICASONE PROPIONATE NA SPR 16 GM BTL SCH (09:25)
[2022-12-16] MEDS: MULTIVITAMIN TAB PO SCH (09:26)
[2022-12-16] MEDS: MONTELUKAST SODIUM 10 MG TABLET PO SCH (09:26)
[2022-12-16] MEDS: HYDROCORTISONE 10 MG TAB PO SCH ×2 (09:26→17:00)
[2022-12-16] MEDS: MEMANTINE HCL 10 MG TAB PO SCH ×2 (09:26→20:31)
[2022-12-16] MEDS ORDERED: SODIUM CHLORIDE 0.9% 1000ML 1,000 ML IV ONE (11:07)
[2022-12-16] MEDS: cefTRIAXone SODIUM 2,000 MG in DEXTROSE 5% 50 ML IV SCH (13:22)
[2022-12-16] MEDS: ADVANCED PROBIOTIC 1250 MG CAPSULE PO SCH (13:23)
[2022-12-16] MEDS: LOPERAMIDE HCL 2 MG CAP PO PRN (14:54)
--- NOTE | 2022-12-16 16:35 | CT Scan Report ---
CT chest diagnostic wo con CT DOSE: 1103.45 mGy.cm HISTORY: COPD. Shortness of breath. TECHNIQUE: Multiaxial CT images of the chest were performed without contrast. A dose lowering techni que was utilized adhering to the principles of ALARA. COMPARISON: Chest CTA 05/22/2014. FINDINGS: The central airways are patent. No pneumothorax. No pleural effusions. Mild emphysema. Ther e is a punctate calcified granuloma seen within the base of the left lower lobe. A few small linear d ensities within the right lung posteriorly. This may represent subsegmental atelectasis are scarring. No focal lung consolidations to suggest pneumonia. No evidence for pulmonary edema. No suspicious ly tic or blastic osseous lesions. Limited views of the upper abdomen demonstrate hepatic steatosis and a normal spleen. The punctate stone within the right kidney. The adrenal glands are unremarkable. The re is a trace pericardial effusion. The heart is normal in size. Normal esophagus. No mediastinal or hilar lymphadenopathy. Normal thyroid gland. Moderate calcified plaque within the coronary arteries a nd aortic valve. There is mild calcified plaque within the thoracic aorta. There is mild aneurysmal d ilatation of the ascending thoracic aorta measuring up to 4.3 cm in diameter. IMPRESSION: 1. No focal lung consolidations to suggest pneumonia. 2. Mild emphysema. 3. Hepatic steatosis. 4. Right-sided nephrolithiasis. 5. Mild aneurysmal dilatation of the ascending thoracic aorta measuring up to 4.3 cm in diameter. ACT 112: Negative or not required by law. Electronically signed by: Des Harrison M.D. 12/16/2022 4:34 PM
--- NOTE | 2022-12-16 16:48 | Hospitalist Progress Note ---
Date of Service December 16, 2022 Assessment & Plan (1) Gross hematuria: Plan: H/O prostate cancer about 5 years ago and status post 44 radiation treatment and 4 infusion treatment. He has been complaining of hematuria for the last 3 months. Was seen by urology clinic on and the postvoid residual was 48 mL- apparent UA at that time did not show any infection. 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 The wall appears thickened and there is surrounding inflammation. Correlate with clinical findings and urinalysis for evidence of cystitis. Hyperdense material is present within the bladder lumen as well as within a large bladder diverticulum. This l ikely represents blood clots. Again, this should be correlated with urinalysis. Consider nonemergent follow-up with urology to exclude the possibility of underlying bladder lesion. There is a punctate nonobstructing right renal calculus. Hepatomegaly and hepatic steatosis. Sigmoid diverticulosis without CT evidence of acute diverticulitis. There is an ovoid minimally complex fluid collection overlying the greater trochanter of the left proximal femur. This likely represents a seroma or hematoma. The sterility of this fluid cannot be assessed by imaging and clinical correlation will be required. -- Urine culture negative for UTI --On alum continuous bladder irrigation --- Okay to resume anticoagulation as per urology Appreciate urology input Monitor for any bleeding issues Will need hyperbaric oxygen administration as outpatient, needs follow-up with pulmonology upon discharge Will obtain CT chest as supposedly planned as outpatient Symptomatic anemia Acute blood loss anemia due to hematuria S/P 1 unit PRBCs Monitor H&H and transfuse PRBCs as needed Diarrhea Likely secondary to IV antibiotics Check stool for C. difficile On empiric IV antibiotics for cystitis Bladder outlet obstruction with hematuria H/O prostate cancer Continue Devlin catheter Appreciate urology input H/O Pulmonary embolism/DVT Coumadin held due to gross interview Trial of SQ heparin Plan to resume Coumadin as able Aortic stenosis: --ECHO-Echo was done on of this month showed normal LV size and systolic function with EF of 60 to 65%, no regional wall motion abnormalities, moderate concentric LVH, mild aortic stenosis, mild mitral regurgitation, mildly dilated ascending aorta of 4.4 cm, small pericardial effusion without tamponade, no significant change compared with prior study of 06/16/2001 COPD (chronic obstructive pulmonary disease): Has COPD on trilogy Follows with Trade Economist as outpatient No acute exacerbation Obstructive sleep apnea on trilogy CKD Monitor renal function DVT Px: Heparin SQ Code Status Full Code Admission and Anticipated Discharge Date Admission Date: December 14, 2022 Subjective Patient is seen and examined at bedside States having dizziness this morning Also noted some hematuria while on bladder irrigation Reports diarrhea as well Denies any chest pain, dyspnea, nausea, abdominal pain No other complaints Review of Systems Review of Systems: All systems reviewed & are unremarkable except as noted in Subjective Physical Exam Physical Exam: Physical Exam: Vitals signs as noted above General Appearance:Moderately built and nourished, no apparent distress Head: normocephalic, Atraumatic Eyes: normal inspection, EOMI Neck: supple, Trachea midline Respiratory/Chest: Decreased breath sounds, CTA, No accessory muscle use Cardiovascular: S1, S2, + murmur Abdomen/GI:Soft, Non tender, Bowel sounds present Extremities/Musculoskeletal:normal inspection, 1+ edema Neurologic/Psych:AAOX3, grossly no focal neurological deficits Skin: normal color, warm Results & Data Results & Data Vital Signs (Past 12 Hours) Vital Signs Temp Pulse Pulse Resp BP Pulse Ox O2 Del Method 12/16/22 15:00 85 12/16/22 08:00 75 12/16/22 08:22 37.5 C 96 H 18 117/71 97 Room Air Laboratory Results Short CBC 12/16/22 Range/Units 07:13 WBC 11.40 H (4.8-10.8) K/ul Hgb 8.0 L (14.0-18.0) g/dl Hct 26.3 L (42.0-52.0) % Plt Count 216 (130-400) K/uL BMP 12/16/22 07:13 Sodium 141 Potassium 4.0 Chloride 110 H Carbon Dioxide 25 BUN 32 H Creatinine 1.70 H Glucose 103 H Calcium 8.2 L Liver Function 12/16/22 Range/Units 07:13 Total Bilirubin 0.6 (0.2-1.0) mg/dl AST 12 L (13-39) U/L ALT 14 (7-52) U/L Alkaline Phosphatase 59 (34-104) U/L Albumin 3.5 (3.4-5.0) gm/dl
[2022-12-16] MEDS: LIDOCAINE 2% JELLY 5 ML TUBE EXT SCH (17:16)
[2022-12-16] MEDS: CHOLECALCIFEROL 5,000 UNITS 125 MCG TAB PO SCH (20:30)
[2022-12-16] MEDS: FLUTICASONE FUROATE 200MCG 14 PUFFS/INHALER INH SCH (20:30)
[2022-12-16] MEDS: DONEPEZIL HCL 10 MG TAB PO SCH (20:30)
[2022-12-16] MEDS: UMECLIDINIUM/VILANTEROL 62.5/25MCG 7 PUFFS/INHALER INH SCH (20:31)
[2022-12-16] MEDS: HEPARIN SOD 5,000 UNIT/0.5 ML VIAL SQ SCH (21:20)
[2022-12-16] MEDS: ACETAMINOPHEN 325 MG TAB PO PRN (22:00)
[2022-12-17] MEDS: oxyCODONE HCL IR 5 MG TAB (IMMEDIATE RELEASE) PO PRN ×4 (00:50→23:19)
[2022-12-17] MEDS: AMMONIUM ALUM 30 GM in SODIUM CHLORIDE 0.9% IRRIG 3,000 ML IR SCH ×4 (01:33→18:30)
[2022-12-17] MEDS: HEPARIN SOD 5,000 UNIT/0.5 ML VIAL SQ SCH (05:33)
[2022-12-17 08:47] LABS: BUN Creatinine Ratio 19.7 (10-20); Calcium 7.9 mg/dl (8.6-10.3); Creatinine Clr Calc Pharmacy 49.8 ml/min; Est GFR (African American) 43.5 ml/min; Est GFR (Non-African American) 37.5 ml/min; Potassium 3.8 mmol/L (3.5-5.1)
[2022-12-17 08:55] LABS: Hematocrit (blood only) 23.9 % (42.0-52.0); Hemoglobin 7.3 g/dl (14.0-18.0); Mean Corpuscular Hemoglobin 26.4 pg (25.0-34.0); Mean Corpuscular Hgb Conc 30.5 g/dL (32.0-36.0); Mean Corpuscular Volume 86.6 fL (80.0-100.0); Mean Platelet Volume 9.7 fL (9.4-12.4); Platelet Count 224 K/uL (130-400); RDW Coefficient of Variation 15.5 % (11.5-14.5); RDW Standard Deviation 48.2 fL (36.4-46.3); Red Blood Count 2.76 M/uL (4.70-6.10); White Blood Count 8.96 K/ul (4.8-10.8)
[2022-12-17] MEDS: PHENAZOPYRIDINE HCL 100 MG TAB PO PRN ×2 (08:55→16:57)
[2022-12-17] MEDS: ASCORBIC ACID 500 MG TAB PO SCH (08:55)
[2022-12-17] MEDS: MEMANTINE HCL 10 MG TAB PO SCH ×2 (08:56→20:00)
[2022-12-17] MEDS: MULTIVITAMIN TAB PO SCH (08:56)
[2022-12-17] MEDS: TOCOPHERYL, DL-ALPHA 400 UNITS 180 MG CAP PO SCH (08:56)
[2022-12-17] MEDS: FLUTICASONE PROPIONATE NA SPR 16 GM BTL SCH (08:56)
[2022-12-17] MEDS: ADVANCED PROBIOTIC 1250 MG CAPSULE PO SCH (08:57)
[2022-12-17] MEDS: HYDROCORTISONE 10 MG TAB PO SCH ×2 (08:57→16:58)
[2022-12-17] MEDS: MONTELUKAST SODIUM 10 MG TABLET PO SCH (09:00)
[2022-12-17 09:02] LABS: INR 1.1 (0.9-1.1)
[2022-12-17] MEDS ORDERED: SODIUM CHLORIDE 0.9% 250 ML IV PRN (12:01)
--- NOTE | 2022-12-17 12:14 | Urology Progress Note ---
Date of Service December 17, 2022 Assessment & Plan (1) Hematuria: (2) Acute urinary retention: Plan Gross hematuria in the setting of known radiation cystitis and anticoagulation Afebrile and hemodynamically stable. Labs show no leukocytosis, creatinine 1.73, hemoglobin 8.0- 7.3 today. Urine culture 12/12 negative, on Ceftriaxone. Continues on Alum CBI slow drip. Urine is clear to light pink with sediment in tubing. Continue to monitor, can titrate as needed. Can hand irrigate as needed. Continue to trend labs. Continue supportive care and antibiotics. Anticoagulation on hold. Urology will follow closely. Admission and Anticipated Discharge Date Admission Date: December 14, 2022 Supervising Physician Co-Signing Physician Notes Discussed patient with KESHAV. Agree with plan. Attempted to clamp but urine remained bloody. We will continue conservative measures but suggest making n.p.o. at midnight in the event that he may need a procedure. Suspect this is radiation cystitis and can be a very difficult issue to control even surgically. Subjective Patient examined at bedside this AM. Awake, sitting in bedside chair on arrival. No acute distress. Continues on CBI with alum slow drip, urine is clear to light pink with sediment. Nursing had to manually irrigate overnight per his report. Denies abdominal and flank pain at present. No fevers. Denies nausea or vomiting. Review of Systems Constitutional: as per Subjective / HPI Gastrointestinal: as per Subjective / HPI Genitourinary: + as per Subjective / HPI Physical Exam Constitutional: no acute distress Respiratory: no respiratory distress and no labored breathing Musculoskeletal: Head/Neck/Chest: normocephalic Neurologic: awake Psychiatric: Orientation: alert and cooperative Genitourinary: Urine is clear to light pink with sediment in tubing, on CBI with alum. Results & Data Vital Signs (Past 12 Hours) Vital Signs Temp Pulse Pulse Resp BP BP Pulse Ox 12/17/22 11:53 37.0 C 87 18 129/78 94 12/17/22 08:14 36.5 C 78 18 112/70 98 12/17/22 07:26 85 12/17/22 03:39 36.6 C 77 16 121/65 96 O2 Del Method 12/17/22 11:53 Room Air 12/17/22 08:14 Room Air 12/17/22 07:26 05/04/23 03:39 Room Air PG Care Time/CCT Total # of Minutes Spent Total Time Spent with Patient: Total time spent is greater than 50% in coordination of care (as documented) at patient's floor/unit and/or counseling patient: Coding Level of Care Code 84168 SUB INP/OBS CARE 2/35MIN Diagnoses Hematuria R31.0 Hematuria type: gross Acute urinary retention R33.8 (1) Hematuria Hematuria type: gross Qualified Code(s): R31.0 - Gross hematuria
[2022-12-17] MEDS: LIDOCAINE 2% JELLY 5 ML TUBE EXT SCH (13:17)
[2022-12-17] MEDS: cefTRIAXone SODIUM 2,000 MG in DEXTROSE 5% 50 ML IV SCH (13:18)
--- NOTE | 2022-12-17 16:38 | XRay Report ---
XR chest 1V portable CLINICAL HISTORY: post thoracentesis COMPARISON STUDY: Chest CT December 16, 2022. FINDINGS: There is no pneumothorax. No pleural effusion is identified. Minimal left basilar opacity f avors atelectasis. There is no evidence for pulmonary edema. Cardiomediastinal silhouette is stable. IMPRESSION: No acute cardiopulmonary findings. No pneumothorax. ACT 112: Negative or not required by law. Electronically signed by: Boris Keys M.D. 12/17/2022 4:36 PM
--- NOTE | 2022-12-17 17:12 | Hospitalist Progress Note ---
Date of Service December 17, 2022 Assessment & Plan (1) Gross hematuria: Plan: H/O prostate cancer about 5 years ago and status post 44 radiation treatment and 4 infusion treatment. He has been complaining of hematuria for the last 3 months. Was seen by urology clinic on and the postvoid residual was 48 mL- apparent UA at that time did not show any infection. 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 The wall appears thickened and there is surrounding inflammation. Correlate with clinical findings and urinalysis for evidence of cystitis. Hyperdense material is present within the bladder lumen as well as within a large bladder diverticulum. This l ikely represents blood clots. Again, this should be correlated with urinalysis. Consider nonemergent follow-up with urology to exclude the possibility of underlying bladder lesion. There is a punctate nonobstructing right renal calculus. Hepatomegaly and hepatic steatosis. Sigmoid diverticulosis without CT evidence of acute diverticulitis. There is an ovoid minimally complex fluid collection overlying the greater trochanter of the left proximal femur. This likely represents a seroma or hematoma. The sterility of this fluid cannot be assessed by imaging and clinical correlation will be required. -- Urine culture negative for UTI --On alum continuous bladder irrigation Appreciate urology input Monitor for any bleeding issues Will need hyperbaric oxygen administration as outpatient, needs follow-up with pulmonology upon discharge Continue current management Symptomatic anemia Acute blood loss anemia due to hematuria S/P 1 unit PRBCs Monitor H&H and transfuse PRBCs as needed Hemoglobin 7.3 today We will give 1 unit PRBC Anticoagulation held Diarrhea Likely secondary to IV antibiotics Check stool for C. difficile On empiric IV antibiotics for cystitis Bladder outlet obstruction with hematuria H/O prostate cancer Continue Devlin catheter Appreciate urology input H/O Pulmonary embolism/DVT Coumadin held due to gross hematuria/anemia Plan to resume Coumadin as able Aortic stenosis: --ECHO-Echo was done on of this month showed normal LV size and systolic function with EF of 60 to 65%, no regional wall motion abnormalities, moderate concentric LVH, mild aortic stenosis, mild mitral regurgitation, mildly dilated ascending aorta of 4.4 cm, small pericardial effusion without tamponade, no significant change compared with prior study of 06/16/2001 COPD (chronic obstructive pulmonary disease): Has COPD on trilogy Follows with [employer] Operator as outpatient No acute exacerbation Obstructive sleep apnea on trilogy CKD Monitor renal function DVT Px: SCDs for now Code Status Full Code Admission and Anticipated Discharge Date Admission Date: December 14, 2022 Subjective Patient is seen and examined at bedside States having significant bladder pain overnight which improved this morning Minimal hematuria Hemoglobin dropped to 7.8 Currently on continuous bladder irrigation Denies any chest pain, dyspnea, nausea, abdominal pain Review of Systems Review of Systems: All systems reviewed & are unremarkable except as noted in Subjective Physical Exam Physical Exam: Physical Exam: Vitals signs as noted above General Appearance:Moderately built and nourished, no apparent distress Head: normocephalic, Atraumatic Eyes: normal inspection, EOMI Neck: supple, Trachea midline Respiratory/Chest: Decreased breath sounds, CTA, No accessory muscle use Cardiovascular: S1, S2, + murmur Abdomen/GI:Soft, Non tender, Bowel sounds present Extremities/Musculoskeletal:normal inspection, 1+ edema Neurologic/Psych:AAOX3, grossly no focal neurological deficits Skin: normal color, warm Results & Data Results & Data Vital Signs (Past 12 Hours) Vital Signs Temp Pulse Pulse Resp BP BP Pulse Ox 12/17/22 15:57 36.8 C 89 18 114/73 97 12/17/22 13:45 36.9 C 74 18 129/75 96 12/17/22 13:43 36.9 C 74 16 129/75 96 12/17/22 11:53 37.0 C 87 18 129/78 94 12/17/22 08:14 36.5 C 78 18 112/70 98 12/17/22 07:26 85 O2 Del Method 12/17/22 15:57 Room Air 12/17/22 13:45 12/17/22 13:43 12/17/22 11:53 Room Air 12/17/22 08:14 Room Air 12/17/22 07:26 Laboratory Results Short CBC 12/17/22 Range/Units 07:54 WBC 8.96 (4.8-10.8) K/ul Hgb 7.3 L (14.0-18.0) g/dl Hct 23.9 L (42.0-52.0) % Plt Count 224 (130-400) K/uL BMP 12/17/22 07:54 Sodium 140 Potassium 3.8 Chloride 109 H Carbon Dioxide 25 BUN 34 H Creatinine 1.73 H Glucose 103 H Calcium 7.9 L
[2022-12-17] MEDS: CHOLECALCIFEROL 5,000 UNITS 125 MCG TAB PO SCH (20:00)
[2022-12-17] MEDS: DONEPEZIL HCL 10 MG TAB PO SCH (20:00)
[2022-12-17] MEDS: UMECLIDINIUM/VILANTEROL 62.5/25MCG 7 PUFFS/INHALER INH SCH (20:00)
[2022-12-17] MEDS: FLUTICASONE FUROATE 200MCG 14 PUFFS/INHALER INH SCH (20:00)
[2022-12-17 20:23] LABS: Hematocrit (blood only) 26.7 % (42.0-52.0); Hemoglobin 8.6 g/dl (14.0-18.0)
[2022-12-17] MEDS: ACETAMINOPHEN 325 MG TAB PO PRN (21:51)
[2022-12-18] MEDS: AMMONIUM ALUM 30 GM in SODIUM CHLORIDE 0.9% IRRIG 3,000 ML IR SCH ×4 (00:17→17:11)
[2022-12-18] MEDS: oxyCODONE HCL IR 5 MG TAB (IMMEDIATE RELEASE) PO PRN ×2 (04:33→12:01)
[2022-12-18 06:54] LABS: Hematocrit (blood only) 26.3 % (42.0-52.0); Hemoglobin 8.5 g/dl (14.0-18.0); Mean Corpuscular Hemoglobin 27.2 pg (25.0-34.0); Mean Corpuscular Hgb Conc 32.3 g/dL (32.0-36.0); Mean Platelet Volume 9.4 fL (9.4-12.4); Platelet Count 222 K/uL (130-400); RDW Coefficient of Variation 15.9 % (11.5-14.5); RDW Standard Deviation 48.8 fL (36.4-46.3); Red Blood Count 3.13 M/uL (4.70-6.10); White Blood Count 11.25 K/ul (4.8-10.8)
[2022-12-18 07:14] LABS: BUN Creatinine Ratio 19.9 (10-20); Calcium 8.1 mg/dl (8.6-10.3); Creatinine Clr Calc Pharmacy 55.7 ml/min; Est GFR (African American) 49.3 ml/min; Est GFR (Non-African American) 42.5 ml/min; Potassium 3.8 mmol/L (3.5-5.1)
[2022-12-18 07:26] LABS: INR 1.1 (0.9-1.1); Prothrombin Time 11.6 Seconds (9.0-12.0)
[2022-12-18] MEDS: ASCORBIC ACID 500 MG TAB PO SCH (09:10)
[2022-12-18] MEDS: TOCOPHERYL, DL-ALPHA 400 UNITS 180 MG CAP PO SCH (09:10)
[2022-12-18] MEDS: MONTELUKAST SODIUM 10 MG TABLET PO SCH (09:12)
[2022-12-18] MEDS: ADVANCED PROBIOTIC 1250 MG CAPSULE PO SCH (09:12)
[2022-12-18] MEDS: MULTIVITAMIN TAB PO SCH (09:12)
[2022-12-18] MEDS: HYDROCORTISONE 10 MG TAB PO SCH ×2 (09:12→16:59)
[2022-12-18] MEDS: FLUTICASONE PROPIONATE NA SPR 16 GM BTL SCH (09:12)
[2022-12-18] MEDS: MEMANTINE HCL 10 MG TAB PO SCH ×2 (09:13→21:11)
--- NOTE | 2022-12-18 10:09 | Urology Progress Note ---
Date of Service December 18, 2022 Assessment & Plan (1) Hematuria: (2) Acute urinary retention: Plan Gross hematuria in the setting of known radiation cystitis and anticoagulation Afebrile and hemodynamically stable. Labs show - Wbc 11.25, Creatinine 1.56, Hemoglobin 8.5 today ( recieved 1 unit PRBC yesterday for Hgb drop to 7.3) Urine culture 12/12 negative, on Ceftriaxone. His urine is a clearlight pink in color with some sediment on slow CBI. Will attempt to clamp Alum CBI this morning and monitor closely. Nursing aware. Can hand irrigate as needed. Continue to trend labs. Continue supportive care and antibiotics. Anticoagulation on hold. Urology will follow. Admission and Anticipated Discharge Date Admission Date: December 14, 2022 Subjective Patient examined at bedside this AM. Awake, resting in bed on arrival. No acute distress. Continues on CBI with alum slow drip, urine is clear to light pink with small amount of sediment. Has intermittent pain at tip of penis/cath insertion site which seems to resolve with manual irrigation. Nursing manually irrigated this morning per his report. Denies abdominal and flank pain at present. No fevers. Denies nausea or vomiting. Review of Systems Constitutional: as per Subjective / HPI Gastrointestinal: as per Subjective / HPI Genitourinary: + as per Subjective / HPI Physical Exam Constitutional: no acute distress Respiratory: normal respiratory effort; no respiratory distress and no labored breathing Gastrointestinal (Abdomen): Percussion/Palpation: abdomen soft; abdomen nontender Musculoskeletal: Head/Neck/Chest: normocephalic Neurologic: awake Psychiatric: Orientation: alert, oriented x 3 and cooperative Genitourinary: CBI with alum slow drip, urine is clear to light pink with small amount of sediment. Results & Data Vital Signs (Past 12 Hours) Vital Signs Temp Pulse Pulse Resp BP Pulse Ox O2 Del Method 12/18/22 07:58 37.1 C 86 18 148/85 H 98 Room Air 12/18/22 07:24 87 12/18/22 04:38 142/85 H 12/18/22 02:29 37.2 C 84 18 170/79 H 97 Room Air 12/17/22 23:37 92 H 12/17/22 23:22 87 15 95 12/17/22 22:37 89 18 144/81 H 95 Room Air, BiPAP 12/17/22 23:08 Room Air, CPAP FiO2 12/18/22 07:58 12/18/22 07:24 12/18/22 04:38 12/18/22 02:29 12/17/22 23:37 12/17/22 23:22 21 12/17/22 22:37 12/17/22 23:08 PG Care Time/CCT Total # of Minutes Spent Total Time Spent with Patient: Total time spent is greater than 50% in coordination of care (as documented) at patient's floor/unit and/or counseling patient: Coding Level of Care Code 74046 SUB INP/OBS CARE 2/35MIN Diagnoses Hematuria R31.0 Hematuria type: gross Acute urinary retention R33.8 (1) Hematuria Hematuria type: gross Qualified Code(s): R31.0 - Gross hematuria
[2022-12-18] MEDS: LIDOCAINE 2% JELLY 5 ML TUBE EXT SCH ×2 (12:02→19:50)
[2022-12-18] MEDS: cefTRIAXone SODIUM 2,000 MG in DEXTROSE 5% 50 ML IV SCH (13:10)
[2022-12-18] MEDS: ENOXAPARIN INJ 30 MG/0.3 ML SYR SQ SCH (16:38)
[2022-12-18] MEDS ORDERED: AMMONIUM ALUM 30 GM in SODIUM CHLORIDE 0.9% IRRIG 3,000 ML IR SCH (17:00)
[2022-12-18] MEDS: PHENAZOPYRIDINE HCL 100 MG TAB PO PRN (18:16)
[2022-12-18] MEDS: ACETAMINOPHEN 325 MG TAB PO PRN (19:49)
--- NOTE | 2022-12-18 19:58 | Hospitalist Progress Note ---
Date of Service December 18, 2022 Assessment & Plan (1) Gross hematuria: Plan: H/O prostate cancer about 5 years ago and status post 44 radiation treatment and 4 infusion treatment. He has been complaining of hematuria for the last 3 months. Was seen by urology clinic on and the postvoid residual was 48 mL- apparent UA at that time did not show any infection. 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 The wall appears thickened and there is surrounding inflammation. Correlate with clinical findings and urinalysis for evidence of cystitis. Hyperdense material is present within the bladder lumen as well as within a large bladder diverticulum. This l ikely represents blood clots. Again, this should be correlated with urinalysis. Consider nonemergent follow-up with urology to exclude the possibility of underlying bladder lesion. There is a punctate nonobstructing right renal calculus. Hepatomegaly and hepatic steatosis. Sigmoid diverticulosis without CT evidence of acute diverticulitis. There is an ovoid minimally complex fluid collection overlying the greater trochanter of the left proximal femur. This likely represents a seroma or hematoma. The sterility of this fluid cannot be assessed by imaging and clinical correlation will be required. -- Urine culture negative for UTI --On alum continuous bladder irrigation Appreciate urology input Monitor for any bleeding issues Will need hyperbaric oxygen administration as outpatient, needs follow-up with pulmonology upon discharge Discussed with Dr. Gan on 12/18/22: Trial of Lovenox 30 mg SQ if okay with urology. If continues to bleed requiring blood transfusions, plan to hold off on further anticoagulation until hyperbaric oxygen therapy. Clamp CBI as per urology Symptomatic anemia Acute blood loss anemia due to hematuria S/P 2 unit PRBCs Monitor H&H and transfuse PRBCs as needed Hemoglobin 8.5 today Diarrhea Likely secondary to IV antibiotics Check stool for C. difficile On empiric IV antibiotics for cystitis Bladder outlet obstruction with hematuria H/O prostate cancer Continue Devlin catheter Appreciate urology input H/O Pulmonary embolism/DVT Coumadin held due to gross hematuria/anemia Plan to resume Coumadin as able Aortic stenosis: --ECHO-Echo was done on 14th of this month showed normal LV size and systolic function with EF of 60 to 65%, no regional wall motion abnormalities, moderate concentric LVH, mild aortic stenosis, mild mitral regurgitation, mildly dilated ascending aorta of 4.4 cm, small pericardial effusion without tamponade, no significant change compared with prior study of 06/16/2001 COPD (chronic obstructive pulmonary disease): Has COPD on trilogy Follows with Financial Systems Director as outpatient No acute exacerbation Obstructive sleep apnea on trilogy CKD Monitor renal function DVT Px: SCDs for now Code Status Full Code Admission and Anticipated Discharge Date Admission Date: December 14, 2022 Subjective Patient is seen and examined at bedside Decreased hematuria this morning but later had some bleeding noted by RN No significant bladder pain today Discussed with Dr. Gan Denies any chest pain, dyspnea, nausea, abdominal pain Review of Systems Review of Systems: All systems reviewed & are unremarkable except as noted in Subjective Physical Exam Physical Exam: Physical Exam: Vitals signs as noted above General Appearance:Moderately built and nourished, no apparent distress Head: normocephalic, Atraumatic Eyes: normal inspection, EOMI Neck: supple, Trachea midline Respiratory/Chest: Decreased breath sounds, CTA, No accessory muscle use Cardiovascular: S1, S2, + murmur Abdomen/GI:Soft, Non tender, Bowel sounds present Extremities/Musculoskeletal:normal inspection, 1+ edema Neurologic/Psych:AAOX3, grossly no focal neurological deficits Skin: normal color, warm Results & Data Results & Data Vital Signs (Past 12 Hours) Vital Signs Temp Pulse Pulse Resp BP Pulse Ox O2 Del Method 12/18/22 17:10 37.4 C 87 19 134/76 97 Room Air 12/18/22 16:31 97 H 12/18/22 11:53 37.6 C H 88 18 148/80 H 96 Room Air 12/18/22 07:58 37.1 C 86 18 148/85 H 98 Room Air Laboratory Results Short CBC 12/17/22 12/18/22 Range/Units 20:11 06:15 WBC 11.25 H (4.8-10.8) K/ul Hgb 8.6 L 8.5 L (14.0-18.0) g/dl Hct 26.7 L 26.3 L (42.0-52.0) % Plt Count 222 (130-400) K/uL BMP 12/18/22 06:15 Sodium 139 Potassium 3.8 Chloride 110 H Carbon Dioxide 23 BUN 31 H Creatinine 1.56 H Glucose 109 H Calcium 8.1 L
[2022-12-18] MEDS: CHOLECALCIFEROL 5,000 UNITS 125 MCG TAB PO SCH (21:11)
[2022-12-18] MEDS: DONEPEZIL HCL 10 MG TAB PO SCH (21:11)
[2022-12-18] MEDS: UMECLIDINIUM/VILANTEROL 62.5/25MCG 7 PUFFS/INHALER INH SCH (21:12)
[2022-12-18] MEDS: FLUTICASONE FUROATE 200MCG 14 PUFFS/INHALER INH SCH (21:12)
[2022-12-19] MEDS: ACETAMINOPHEN 325 MG TAB PO PRN ×2 (00:06→20:18)
[2022-12-19] MEDS: LIDOCAINE 2% JELLY 5 ML TUBE EXT SCH (00:07)
[2022-12-19] MEDS: oxyCODONE HCL IR 5 MG TAB (IMMEDIATE RELEASE) PO PRN ×2 (00:47→08:14)
[2022-12-19] MEDS: AMMONIUM ALUM 30 GM in SODIUM CHLORIDE 0.9% IRRIG 3,000 ML IR SCH ×3 (02:24→17:14)
[2022-12-19 07:47] LABS: Hematocrit (blood only) 24.6 % (42.0-52.0); Hemoglobin 7.9 g/dl (14.0-18.0); Mean Corpuscular Hemoglobin 26.7 pg (25.0-34.0); Mean Corpuscular Hgb Conc 32.1 g/dL (32.0-36.0); Mean Corpuscular Volume 83.1 fL (80.0-100.0); Mean Platelet Volume 9.4 fL (9.4-12.4); Nucleated RBC # (auto) 0.02 K/uL (0-0.12); Nucleated RBC % (auto) 0.2 %; Platelet Count 203 K/uL (130-400); RDW Coefficient of Variation 15.8 % (11.5-14.5); RDW Standard Deviation 47.9 fL (36.4-46.3); Red Blood Count 2.96 M/uL (4.70-6.10); White Blood Count 11.87 K/ul (4.8-10.8)
[2022-12-19 08:05] LABS: BUN Creatinine Ratio 18.9 (10-20); Calcium 8.1 mg/dl (8.6-10.3); Creatinine Clr Calc Pharmacy 52.6 ml/min; Est GFR (African American) 46.4 ml/min; Potassium 3.8 mmol/L (3.5-5.1)
[2022-12-19] MEDS: ASCORBIC ACID 500 MG TAB PO SCH (08:09)
[2022-12-19] MEDS: ADVANCED PROBIOTIC 1250 MG CAPSULE PO SCH (08:09)
[2022-12-19] MEDS: MULTIVITAMIN TAB PO SCH (08:09)
[2022-12-19] MEDS: MONTELUKAST SODIUM 10 MG TABLET PO SCH (08:10)
[2022-12-19] MEDS: HYDROCORTISONE 10 MG TAB PO SCH ×2 (08:10→17:14)
[2022-12-19] MEDS: MEMANTINE HCL 10 MG TAB PO SCH ×2 (08:10→20:15)
[2022-12-19] MEDS: TOCOPHERYL, DL-ALPHA 400 UNITS 180 MG CAP PO SCH (08:10)
[2022-12-19] MEDS: ENOXAPARIN INJ 30 MG/0.3 ML SYR SQ SCH (08:11)
[2022-12-19] MEDS: FLUTICASONE PROPIONATE NA SPR 16 GM BTL SCH (08:11)
[2022-12-19] MEDS: HYDROmorphone INJ 0.5 MG/0.5 ML SYR IV PRN (09:31)
--- NOTE | 2022-12-19 13:26 | Urology Progress Note ---
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 His CBI was able to be turned off while I was in the room and there was no considerable increase in bleeding or color change to indicate ongoing bleeding issues or concerns. Patient is going to be continue to monitor. Is currently dealing with some wea kness issues. These will need to be monitored closely. We will likely need continued supportive care. Moving forward discussed extensively with patient options for management. At this point the major concern is managing the acute bleeding issue as well as transitioning patient back onto his anticoagulation which she will need long-term. At that point we will need to monitor patient's recovery and regaining of strength. He is currently fairly deconditioned from the major episode. We will also need to work on setting patient up for outpatient follow-up and management in order to look into strategies for management of issues to hopefully prevent any future bleed or major episode. Patient is resting comfortably. Is answering appropriately. Has been dealing with some weakness but has not had any major confusion or delirium. We will plan to continue to monitor. Have patient continue to follow with Dr. Aguiar as an outpatient. If the irrigation is able to remain off at this point would likely disconnect the alum and only utilize saline if he does develop some minor issues or some minor color changes over the next few days. Would also limit the amount of irrigation unless major clot material was present as this may cause disruption of some of the healing areas and may lead to future bleeding. We will plan to continue to monitor. Admission and Anticipated Discharge Date Admission Date: December 14, 2022 Subjective Patient admitted gross hematuria radiation cystitis on anticoagulants. Patient has been transitioned back onto Lovenox. Has been tolerating it well. Developed bleeding again yesterday and had to be restarted on the alum. Has since cleared significantly. Currently is running at a very slow pace with no signs of blood in the urine. Has had very minor debris draining and has had some minor irrigation issues but overall has been doing well. Patient is been dealing with some weakness. Has had near falls and has been monitored closely. Vitals have remained stable. Patient has been monitored with blood work as well. Creatinine is 1.64. White count is 11.87. Review of Systems Review of Systems: All systems reviewed & are unremarkable except as noted in HPI & below Physical Exam Physical Exam: General: Alert in no acute distress. Weakness HEENT: Normocephalic Atraumatic. Inspection normal. Cranial Nerves 2-12 Grossly intact. Normal inspection of face. Normal inspection of neck. Psychologic: Normal affect. Respiratory: Nonlabored. No use of accessory muscles. No tachypnea or dyspnea. Cardiovascular: No tachycardia Skin: [place] and Dry. No rashes or visible lesions. : Devlin in place draining clear urine with yellow tinge. No signs of blood. No signs of discoloration from [place]. Is on CBI with a very slow drip. This was clamped while I was in the room. No considerable increase in blood or color change after clamping. Abdomen: Soft Non-distended. No rebound or guarding. Results & Data Vital Signs (Past 12 Hours) Vital Signs Temp Pulse Pulse Resp BP BP Pulse Ox 12/19/22 11:51 37.1 C 60 18 148/78 H 97 12/19/22 11:31 12/19/22 08:12 98 H 20 66/38 L 100 12/19/22 08:11 36.9 C 99 H 18 114/77 100 12/19/22 07:16 76 12/19/22 02:40 37.1 C 83 16 127/72 95 O2 Del Method 12/19/22 11:51 Room Air 12/19/22 11:31 Room Air 12/19/22 08:12 Room Air 12/19/22 08:11 Room Air 12/19/22 07:16 12/19/22 02:40 Room Air PG Care Time/CCT Total # of Minutes Spent Total Time Spent with Patient: Total time spent is greater than 50% in coordination of care (as documented) at patient's floor/unit and/or counseling patient: Coding Level of Care Code 58567 SUB INP/OBS CARE 3/50MIN Diagnoses Hematuria R31.0 Hematuria type: gross Acute urinary retention R33.8 (1) Hematuria Hematuria type: gross Qualified Code(s): R31.0 - Gross hematuria
[2022-12-19] MEDS: cefTRIAXone SODIUM 2,000 MG in DEXTROSE 5% 50 ML IV SCH (13:42)
--- NOTE | 2022-12-19 15:11 | Hospitalist Progress Note ---
Date of Service December 19, 2022 Assessment & Plan (1) Gross hematuria: Plan: H/O prostate cancer about 5 years ago and status post 44 radiation treatment and 4 infusion treatment. He has been complaining of hematuria for the last 3 months. Was seen by urology clinic on and the postvoid residual was 48 mL- apparent UA at that time did not show any infection. 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 The wall appears thickened and there is surrounding inflammation. Correlate with clinical findings and urinalysis for evidence of cystitis. Hyperdense material is present within the bladder lumen as well as within a large bladder diverticulum. This l ikely represents blood clots. Again, this should be correlated with urinalysis. Consider nonemergent follow-up with urology to exclude the possibility of underlying bladder lesion. There is a punctate nonobstructing right renal calculus. Hepatomegaly and hepatic steatosis. Sigmoid diverticulosis without CT evidence of acute diverticulitis. There is an ovoid minimally complex fluid collection overlying the greater trochanter of the left proximal femur. This likely represents a seroma or hematoma. The sterility of this fluid cannot be assessed by imaging and clinical correlation will be required. -- Urine culture negative for UTI Appreciate urology input Monitor for any bleeding issues Will need hyperbaric oxygen administration as outpatient, needs follow-up with pulmonology upon discharge Discussed with Dr. Gan on 12/18/22: Trial of Lovenox 30 mg SQ if okay with urology. If continues to bleed requiring blood transfusions, plan to hold off on further anticoagulation until hyperbaric oxygen therapy. CBI as per urology Hold off any anticoagulation until tomorrow to reassess CBC/bleeding issues Symptomatic anemia Acute blood loss anemia due to hematuria S/P 2 unit PRBCs Monitor H&H and transfuse PRBCs as needed Hemoglobin 7.9 today Diarrhea Likely secondary to IV antibiotics Check stool for C. difficile if recurrence of diarrhea On empiric IV antibiotics for cystitis Bladder outlet obstruction with hematuria H/O prostate cancer Continue Devlin catheter Appreciate urology input H/O Pulmonary embolism/DVT Coumadin held due to gross hematuria/anemia Plan to resume Coumadin as able Aortic stenosis: --ECHO-Echo was done on of this month showed normal LV size and systolic function with EF of 60 to 65%, no regional wall motion abnormalities, moderate concentric LVH, mild aortic stenosis, mild mitral regurgitation, mildly dilated ascending aorta of 4.4 cm, small pericardial effusion without tamponade, no significant change compared with prior study of 06/16/2001 COPD (chronic obstructive pulmonary disease): Has COPD on trilogy Follows with Diabetes Trainer as outpatient No acute exacerbation Obstructive sleep apnea on trilogy CKD Monitor renal function DVT Px: SCDs Re: Hematuria Code Status Full Code Admission and Anticipated Discharge Date Admission Date: December 14, 2022 Subjective Patient is seen and examined at bedside Reports having bladder pain and also noted to have hematuria Updated patient's over the phone Patient feels tired on CBI Denies any chest pain, dyspnea, nausea, abdominal pain Review of Systems Review of Systems: All systems reviewed & are unremarkable except as noted in Subjective Physical Exam Physical Exam: Physical Exam: Vitals signs as noted above General Appearance:Moderately built and nourished, no apparent distress Head: normocephalic, Atraumatic Eyes: normal inspection, EOMI Neck: supple, Trachea midline Respiratory/Chest: Decreased breath sounds, CTA, No accessory muscle use Cardiovascular: S1, S2, + murmur Abdomen/GI:Soft, Non tender, Bowel sounds present Extremities/Musculoskeletal:normal inspection, 1+ edema Neurologic/Psych:AAOX3, grossly no focal neurological deficits Skin: normal color, warm Results & Data Results & Data Vital Signs (Past 12 Hours) Vital Signs Temp Pulse Pulse Resp BP Pulse Ox O2 Del Method 12/19/22 11:51 37.1 C 60 18 148/78 H 97 Room Air 12/19/22 11:31 Room Air 12/19/22 08:12 98 H 20 66/38 L 100 Room Air 12/19/22 08:11 36.9 C 99 H 18 114/77 100 Room Air 12/19/22 07:16 76 Laboratory Results Short CBC 12/19/22 Range/Units 07:25 WBC 11.87 H (4.8-10.8) K/ul Hgb 7.9 L (14.0-18.0) g/dl Hct 24.6 L (42.0-52.0) % Plt Count 203 (130-400) K/uL BMP 12/19/22 07:25 Sodium 139 Potassium 3.8 Chloride 108 H Carbon Dioxide 24 BUN 31 H Creatinine 1.64 H Glucose 111 H Calcium 8.1 L
[2022-12-19] MEDS: DONEPEZIL HCL 10 MG TAB PO SCH (20:15)
[2022-12-19] MEDS: CHOLECALCIFEROL 5,000 UNITS 125 MCG TAB PO SCH (20:15)
[2022-12-19] MEDS: FLUTICASONE FUROATE 200MCG 14 PUFFS/INHALER INH SCH (20:15)
[2022-12-19] MEDS: UMECLIDINIUM/VILANTEROL 62.5/25MCG 7 PUFFS/INHALER INH SCH (21:04)
[2022-12-20] MEDS: oxyCODONE HCL IR 5 MG TAB (IMMEDIATE RELEASE) PO PRN ×3 (00:08→20:36)
[2022-12-20] MEDS: PHENAZOPYRIDINE HCL 100 MG TAB PO PRN ×3 (00:09→20:36)
[2022-12-20] MEDS: HYDROmorphone INJ 0.5 MG/0.5 ML SYR IV PRN (01:06)
[2022-12-20] MEDS: AMMONIUM ALUM 30 GM in SODIUM CHLORIDE 0.9% IRRIG 3,000 ML IR SCH ×3 (01:27→14:09)
[2022-12-20] MEDS ORDERED: oxyCODONE HCL IR 5 MG TAB (IMMEDIATE RELEASE) PO STA (05:05)
[2022-12-20 06:13] LABS: Hematocrit (blood only) 26.1 % (42.0-52.0); Hemoglobin 8.3 g/dl (14.0-18.0)
[2022-12-20] MEDS: FLUTICASONE PROPIONATE NA SPR 16 GM BTL SCH (08:03)
[2022-12-20] MEDS: MULTIVITAMIN TAB PO SCH (08:04)
[2022-12-20] MEDS: TOCOPHERYL, DL-ALPHA 400 UNITS 180 MG CAP PO SCH (08:04)
[2022-12-20] MEDS: HYDROCORTISONE 10 MG TAB PO SCH ×2 (08:04→17:16)
[2022-12-20] MEDS: MONTELUKAST SODIUM 10 MG TABLET PO SCH (08:05)
[2022-12-20] MEDS: MEMANTINE HCL 10 MG TAB PO SCH ×2 (08:05→20:36)
[2022-12-20] MEDS: ADVANCED PROBIOTIC 1250 MG CAPSULE PO SCH (08:05)
[2022-12-20] MEDS: ASCORBIC ACID 500 MG TAB PO SCH (08:05)
[2022-12-20] MEDS: POLYETHYLENE (MIRALAX) 17 GM PACK PO PRN (10:11)
[2022-12-20] MEDS: cefTRIAXone SODIUM 2,000 MG in DEXTROSE 5% 50 ML IV SCH (12:56)
--- NOTE | 2022-12-20 15:06 | Hospitalist Progress Note ---
Date of Service December 20, 2022 Assessment & Plan (1) Gross hematuria: Plan: H/O prostate cancer about 5 years ago and status post 44 radiation treatment and 4 infusion treatment. He has been complaining of hematuria for the last 3 months. Was seen by urology clinic on and the postvoid residual was 48 mL- apparent UA at that time did not show any infection. 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 The wall appears thickened and there is surrounding inflammation. Correlate with clinical findings and urinalysis for evidence of cystitis. Hyperdense material is present within the bladder lumen as well as within a large bladder diverticulum. This l ikely represents blood clots. Again, this should be correlated with urinalysis. Consider nonemergent follow-up with urology to exclude the possibility of underlying bladder lesion. There is a punctate nonobstructing right renal calculus. Hepatomegaly and hepatic steatosis. Sigmoid diverticulosis without CT evidence of acute diverticulitis. There is an ovoid minimally complex fluid collection overlying the greater trochanter of the left proximal femur. This likely represents a seroma or hematoma. The sterility of this fluid cannot be assessed by imaging and clinical correlation will be required. -- Urine culture negative for UTI Appreciate urology input Monitor for any bleeding issues Will need hyperbaric oxygen administration as outpatient, needs follow-up with pulmonology upon discharge Discussed with Dr. Gan on 12/18/22: Trial of Lovenox 30 mg SQ if okay with urology. If continues to bleed requiring blood transfusions, plan to hold off on further anticoagulation until hyperbaric oxygen therapy. CBI as per urology Patient agree with trial of Lovenox SQ Hb stable today Bladder scan needed for retention Symptomatic anemia Acute blood loss anemia due to hematuria S/P 2 unit PRBCs Monitor H&H and transfuse PRBCs as needed Hemoglobin 8.3 today Diarrhea Likely secondary to IV antibiotics Check stool for C. difficile if recurrence of diarrhea On empiric IV antibiotics for cystitis Bladder outlet obstruction with hematuria H/O prostate cancer Continue Devlin catheter Appreciate urology input H/O Pulmonary embolism/DVT Coumadin held due to gross hematuria/anemia Lovenox SQ for now Aortic stenosis: --ECHO-Echo was done on of this month showed normal LV size and systolic function with EF of 60 to 65%, no regional wall motion abnormalities, moderate concentric LVH, mild aortic stenosis, mild mitral regurgitation, mildly dilated ascending aorta of 4.4 cm, small pericardial effusion without tamponade, no significant change compared with prior study of 06/16/2001 COPD (chronic obstructive pulmonary disease): Has COPD on trilogy Follows with [employer] Coordinator as outpatient No acute exacerbation Obstructive sleep apnea on trilogy CKD Monitor renal function DVT Px: SCDs Re: Hematuria Code Status Full Code Admission and Anticipated Discharge Date Admission Date: December 14, 2022 Subjective Patient is seen and examined at bedside No new complaints Cola colored Urine noted No significant bleeding issues Hb stable States having some bladder pain overnight Denies any chest pain, dyspnea, nausea, abdominal pain Review of Systems Review of Systems: All systems reviewed & are unremarkable except as noted in Subjective Physical Exam Physical Exam: Physical Exam: Vitals signs as noted above General Appearance:Moderately built and nourished, no apparent distress Head: normocephalic, Atraumatic Eyes: normal inspection, EOMI Neck: supple, Trachea midline Respiratory/Chest: Decreased breath sounds, CTA, No accessory muscle use Cardiovascular: S1, S2, + murmur Abdomen/GI:Soft, Non tender, Bowel sounds present Extremities/Musculoskeletal:normal inspection, 1+ edema Neurologic/Psych:AAOX3, grossly no focal neurological deficits Skin: normal color, warm Results & Data Results & Data Vital Signs (Past 12 Hours) Vital Signs Temp Pulse Pulse Resp BP Pulse Ox O2 Del Method 12/20/22 14:39 83 12/20/22 11:42 37.2 C 82 18 139/76 95 Room Air 12/20/22 07:25 37.0 C 85 18 148/74 H 96 Room Air 12/20/22 07:24 78 12/20/22 03:45 36.7 C 78 18 157/82 H 97 Room Air Laboratory Results Short CBC 12/20/22 Range/Units 05:20 Hgb 8.3 L (14.0-18.0) g/dl Hct 26.1 L (42.0-52.0) %
[2022-12-20] MEDS: UMECLIDINIUM/VILANTEROL 62.5/25MCG 7 PUFFS/INHALER INH SCH (20:35)
[2022-12-20] MEDS: DONEPEZIL HCL 10 MG TAB PO SCH (20:36)
[2022-12-20] MEDS: FLUTICASONE FUROATE 200MCG 14 PUFFS/INHALER INH SCH (20:36)
[2022-12-20] MEDS: CHOLECALCIFEROL 5,000 UNITS 125 MCG TAB PO SCH (20:36)
[2022-12-21] MEDS: AMMONIUM ALUM 30 GM in SODIUM CHLORIDE 0.9% IRRIG 3,000 ML IR SCH ×2 (01:15→07:20)
[2022-12-21] MEDS: PHENAZOPYRIDINE HCL 100 MG TAB PO PRN ×3 (05:57→20:26)
[2022-12-21 07:18] LABS: Hematocrit (blood only) 22.3 % (42.0-52.0); Hemoglobin 7.2 g/dl (14.0-18.0)
[2022-12-21 07:35] LABS: BUN Creatinine Ratio 24.6 (10-20); Calcium 7.7 mg/dl (8.6-10.3); Creatinine Clr Calc Pharmacy 43.3 ml/min; Est GFR (African American) 36.7 ml/min; Est GFR (Non-African American) 31.7 ml/min; Potassium 3.5 mmol/L (3.5-5.1)
[2022-12-21] MEDS: MEMANTINE HCL 10 MG TAB PO SCH ×2 (07:51→20:26)
[2022-12-21] MEDS: ADVANCED PROBIOTIC 1250 MG CAPSULE PO SCH (07:51)
[2022-12-21] MEDS: FLUTICASONE PROPIONATE NA SPR 16 GM BTL SCH (07:51)
[2022-12-21] MEDS: TOCOPHERYL, DL-ALPHA 400 UNITS 180 MG CAP PO SCH (07:51)
[2022-12-21] MEDS: MULTIVITAMIN TAB PO SCH (07:51)
[2022-12-21] MEDS: HYDROCORTISONE 10 MG TAB PO SCH ×2 (07:51→16:24)
[2022-12-21] MEDS: ASCORBIC ACID 500 MG TAB PO SCH (07:51)
[2022-12-21] MEDS: MONTELUKAST SODIUM 10 MG TABLET PO SCH (07:51)
[2022-12-21] MEDS: ENOXAPARIN INJ 30 MG/0.3 ML SYR SQ SCH (07:52)
[2022-12-21] MEDS: POLYETHYLENE (MIRALAX) 17 GM PACK PO PRN (07:57)
[2022-12-21] MEDS ORDERED: SODIUM CHLORIDE 0.9% 250 ML IV PRN (09:03)
[2022-12-21] MEDS ORDERED: SODIUM CHLORIDE 0.9% 1000ML 1,000 ML IV ONE (09:10)
[2022-12-21] MEDS: ACETAMINOPHEN 325 MG TAB PO PRN ×2 (09:34→20:25)
--- NOTE | 2022-12-21 10:41 | Urology Progress Note ---
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 Afebrile, labs reviewed - WBC 11.87, Creatinine 1.99, Hgb 7.2 today(2 units PRBCs ordered) - trend labs. Urine culture 12/12 negative, on Ceftriaxone. Devlin draining appropriately with regino/light cola colored urine. CBI has been off for a few days - can discontinue CBI set up and plug irrigation port. Maintain Devlin catheter at this time. Can hand irrigate Devlin as needed for clot retention. However, limit the amount of irrigation unless major clot material present/suspected as this may cause disruption of some of the healing areas and may lead to future bleeding. Continue supportive care and antibiotics per primary service. Will arrange outpatient follow-up with urology. Urology will follow peripherally. Admission and Anticipated Discharge Date Admission Date: December 14, 2022 Subjective Patient seen and examined at bedside this morning. He is awake and resting in bed. No acute issues overnight. No irrigation overnight per notes. No acute complaints. No abdominal or suprapubic discomfort. He reports appetite improved. No nausea or vomiting. No fever or chills. Devlin patent and draining regino/light cola colored urine with some sediment in tubing. CBI has been clamped. Review of Systems Constitutional: as per Subjective / HPI Gastrointestinal: as per Subjective / HPI Genitourinary: + as per Subjective / HPI Physical Exam Constitutional: no acute distress Respiratory: normal respiratory effort; no respiratory distress and no labored breathing Gastrointestinal (Abdomen): Percussion/Palpation: abdomen soft; abdomen nontender Musculoskeletal: Head/Neck/Chest: normocephalic Neurologic: awake Psychiatric: Orientation: alert, oriented x 3 and cooperative Genitourinary: Devlin catheter draining regino/light cola colored urine with sediment noted in tubing Results & Data Vital Signs (Past 12 Hours) Vital Signs Temp Pulse Pulse Resp BP BP Pulse Ox 12/21/22 07:25 78 12/21/22 07:23 36.5 C 78 18 120/70 97 12/21/22 03:26 36.5 C 76 18 132/83 95 12/21/22 00:01 79 20 94 12/20/22 22:20 36.9 C 84 16 126/76 93 12/20/22 22:17 85 O2 Del Method FiO2 12/21/22 07:25 12/21/22 07:23 Room Air 12/21/22 03:26 Room Air 12/21/22 00:01 21 12/20/22 22:20 Room Air 12/20/22 22:17 PG Care Time/CCT Total # of Minutes Spent Total Time Spent with Patient: Total time spent is greater than 50% in coordination of care (as documented) at patient's floor/unit and/or counseling patient: Coding Level of Care Code 47616 SUB INP/OBS CARE 2/35MIN Diagnoses Hematuria R31.0 Hematuria type: gross Acute urinary retention R33.8 (1) Hematuria Hematuria type: gross Qualified Code(s): R31.0 - Gross hematuria
[2022-12-21] MEDS: LIDOCAINE 2% JELLY 5 ML TUBE EXT SCH (11:20)
[2022-12-21] MEDS: oxyCODONE HCL IR 5 MG TAB (IMMEDIATE RELEASE) PO PRN ×3 (11:47→22:59)
[2022-12-21] MEDS: cefTRIAXone SODIUM 2,000 MG in DEXTROSE 5% 50 ML IV SCH (12:33)
--- NOTE | 2022-12-21 16:48 | Hospitalist Progress Note ---
Date of Service December 21, 2022 Assessment & Plan (1) Hematuria: Plan: H/O prostate cancer about 5 years ago and status post 44 radiation treatment and 4 infusion treatment. He has been complaining of hematuria for the last 3 months. Was seen by urology clinic on and the postvoid residual was 48 mL- apparent UA at that time did not show any infection. Continues to have ongoing hematuria and was unable to void and came to emergency room Gross hematuria Secondary to radiation cystitis in setting of chronic anticoagulation H/O prostate cancer S/P radiation and infusion --CT ABD:The bladder is decompressed around a Devlin catheter. The wall appears t hickened and there is surrounding inflammation. Correlate with clinical findings and urinalysis for evidence of cystitis. Hyperdense material is present within the bladder lumen as well as within a large bladder diverticulum. This likely represents blood clots. Again, this should be correlated with urinalysis. Consider nonemergent follow-up with urology to exclude the possibility of underlying bladder lesion. There is a punctate nonobstructing right renal calculus. Hepatomegaly and hepatic steatosis. Sigmoid diverticulosis without CT evidence of acute diverticulitis. There is an ovoid minimally complex fluid collection overlying the greater trochanter of the left proximal femur. This likely represents a seroma or hematoma. The sterility of this fluid cannot be assessed by imaging and clinical correlation will be required. -- Urine culture negative for UTI Appreciate urology input Monitor for any bleeding issues Continues to bladder irrigation discontinued Hand irrigate as needed for clot retention Plan for hyperbaric oxygen therapy as outpatient Needs follow-up with urology upon discharge Anticoagulation discontinued Bladder scan needed for retention Symptomatic anemia Acute blood loss anemia due to hematuria S/P 2 unit PRBCs Monitor H&H and transfuse PRBCs as needed Hemoglobin 7.2 today Will give 1 unit PRBC today VIOLETA on CKD III Likely multifactorial Cr 1.9 today Gentle IV fluids Avoid nephrotoxic agents as able Consider nephrology evaluation if renal function continues to deteriorate Diarrhea Likely secondary to IV antibiotics Check stool for C. difficile if recurrence of diarrhea On empiric IV antibiotics for cystitis Bladder outlet obstruction with hematuria H/O prostate cancer Continue Devlin catheter Appreciate urology input H/O Pulmonary embolism/DVT Coumadin discontinued due to gross hematuria/anemia Discussed with Dr. Gan on 12/18/22: Trial of Lovenox 30 mg SQ if okay with urology. If continues to bleed requiring blood transfusions, plan to hold off on further anticoagulation until hyperbaric oxygen therapy. Failed trial off Lovenox SQ--- discussed risks Vs benefits with anticoagulation with family/patient. Plan to discontinue anticoagulation for now given risks overweigh benefits. Patient and family agrees with the plan. Aortic stenosis: --ECHO-Echo was done on of this month showed normal LV size and systolic function with EF of 60 to 65%, no regional wall motion abnormalities, moderate concentric LVH, mild aortic stenosis, mild mitral regurgitation, mildly dilated ascending aorta of 4.4 cm, small pericardial effusion without tamponade, no significant change compared with prior study of 06/16/2001 COPD (chronic obstructive pulmonary disease): Has COPD on trilogy Follows with [employer] Attendant as outpatient No acute exacerbation Obstructive sleep apnea on trilogy CKD Monitor renal function DVT Px: SCDs Re: Hematuria Code Status Full Code Admission and Anticipated Discharge Date Admission Date: December 14, 2022 Subjective Patient is seen and examined at bedside Reports bladder pain only with irrigation Follow-up hemoglobin dropped today Cola colored urine noted Denies any chest pain, dyspnea, nausea, abdominal pain Updated patient's family over the phone Review of Systems Review of Systems: All systems reviewed & are unremarkable except as noted in Subjective Physical Exam Physical Exam: Physical Exam: Vitals signs as noted above General Appearance:Moderately built and nourished, no apparent distress Head: normocephalic, Atraumatic Eyes: normal inspection, EOMI Neck: supple, Trachea midline Respiratory/Chest: Decreased breath sounds, CTA, No accessory muscle use Cardiovascular: S1, S2, + murmur Abdomen/GI:Soft, Non tender, Bowel sounds present Extremities/Musculoskeletal:normal inspection, 1+ edema Neurologic/Psych:AAOX3, grossly no focal neurological deficits Skin: normal color, warm Results & Data Results & Data Vital Signs (Past 12 Hours) Vital Signs Temp Pulse Pulse Resp BP BP Pulse Ox 12/21/22 15:15 79 12/21/22 14:54 36.7 C 72 18 144/77 H 95 12/21/22 14:25 36.6 C 73 18 144/76 H 97 12/21/22 13:25 36.4 C L 72 18 128/75 95 12/21/22 12:25 36.6 C 71 18 151/76 H 98 12/21/22 11:55 36.6 C 77 18 149/78 H 98 12/21/22 11:40 36.7 C 80 19 133/74 97 12/21/22 11:23 36.7 C 78 18 131/73 98 12/21/22 07:25 78 12/21/22 07:23 36.5 C 78 18 120/70 97 O2 Del Method 12/21/22 15:15 12/21/22 14:54 12/21/22 14:25 12/21/22 13:25 12/21/22 12:25 12/21/22 11:55 12/21/22 11:40 12/21/22 11:23 12/21/22 07:25 12/21/22 07:23 Room Air Laboratory Results Short CBC 12/21/22 Range/Units 06:57 Hgb 7.2 L (14.0-18.0) g/dl Hct 22.3 L (42.0-52.0) % BMP 12/21/22 06:57 Sodium 135 L Potassium 3.5 Chloride 104 Carbon Dioxide 25 BUN 49 H Creatinine 1.99 H D Glucose 101 H Calcium 7.7 L (1) Hematuria Hematuria type: gross Qualified Code(s): R31.0 - Gross hematuria
[2022-12-21] MEDS: FLUTICASONE FUROATE 200MCG 14 PUFFS/INHALER INH SCH (20:26)
[2022-12-21] MEDS: UMECLIDINIUM/VILANTEROL 62.5/25MCG 7 PUFFS/INHALER INH SCH (20:26)
[2022-12-21] MEDS: MELATONIN 3 MG TAB PO PRN (20:26)
[2022-12-21] MEDS: DONEPEZIL HCL 10 MG TAB PO SCH (20:26)
[2022-12-21] MEDS: CHOLECALCIFEROL 5,000 UNITS 125 MCG TAB PO SCH (20:28)
[2022-12-22] MEDS: oxyCODONE HCL IR 5 MG TAB (IMMEDIATE RELEASE) PO PRN ×3 (03:05→21:28)
[2022-12-22] MEDS: HYDROmorphone INJ 0.5 MG/0.5 ML SYR IV PRN (04:01)
[2022-12-22] MEDS: TOCOPHERYL, DL-ALPHA 400 UNITS 180 MG CAP PO SCH (07:46)
[2022-12-22] MEDS: HYDROCORTISONE 10 MG TAB PO SCH ×2 (07:46→16:03)
[2022-12-22] MEDS: ADVANCED PROBIOTIC 1250 MG CAPSULE PO SCH (07:47)
[2022-12-22] MEDS: ASCORBIC ACID 500 MG TAB PO SCH (07:47)
[2022-12-22] MEDS: MULTIVITAMIN TAB PO SCH (07:47)
[2022-12-22] MEDS: MONTELUKAST SODIUM 10 MG TABLET PO SCH (07:47)
[2022-12-22] MEDS: FLUTICASONE PROPIONATE NA SPR 16 GM BTL SCH (07:48)
[2022-12-22] MEDS: PHENAZOPYRIDINE HCL 100 MG TAB PO PRN ×2 (07:48→21:28)
[2022-12-22] MEDS: MEMANTINE HCL 10 MG TAB PO SCH (07:48)
[2022-12-22 07:57] LABS: Hematocrit (blood only) 26.4 % (42.0-52.0); Hemoglobin 8.2 g/dl (14.0-18.0)
[2022-12-22] MEDS: LIDOCAINE 2% JELLY 5 ML TUBE EXT SCH (10:10)
--- NOTE | 2022-12-22 13:27 | Urology Progress Note ---
Date of Service December 22, 2022 Assessment & Plan (1) Hematuria: (2) Acute urinary retention: Plan: Gross hematuria in the setting of known radiation cystitis and anticoagulation. - Afebrile - Labs reviewed - Creatinine pending, Hgb improved to 8.2 today(received 1 unit of PRBCs yesterday). - Urine culture 12/12 negative, treated with Ceftriaxone during admission. - Devlin draining appropriately with regino colored urine. - CBI had been off for a few days and was discontinued yesterday. - Okay to remove catheter for voiding trial today. Monitor for void, bladder scan prn. - Continue supportive care and medical management per primary service. - Will arrange outpatient follow-up with urology. - Urology will follow peripherally. Admission and Anticipated Discharge Date Admission Date: December 14, 2022 Subjective Patient seen and examined at bedside. He is awake and sitting up at the side of bed working with PT. No acute issues overnight. No manual irrigation required overnight. Devlin patent and draining regino urine with sediment. Continues to have low appetite but improving. No nausea or vomiting. No fever or chills. No bladder discomfort currently. Review of Systems Constitutional: as per Subjective / HPI Gastrointestinal: as per Subjective / HPI Genitourinary: + as per Subjective / HPI Physical Exam Constitutional: no acute distress Respiratory: normal respiratory effort; no respiratory distress and no labored breathing Gastrointestinal (Abdomen): Percussion/Palpation: abdomen soft; abdomen nontender Musculoskeletal: Head/Neck/Chest: normocephalic Neurologic: awake Psychiatric: Orientation: alert, oriented x 3 and cooperative Genitourinary: Devlin catheter draining regino colored urine with sediment noted in tubing Results & Data Vital Signs (Past 12 Hours) Vital Signs Temp Pulse Pulse Resp BP Pulse Ox O2 Del Method 12/22/22 07:22 36.8 C 78 18 135/71 95 Room Air 12/22/22 07:15 75 12/22/22 03:00 36.8 C 72 20 148/76 H 96 Room Air 12/22/22 00:40 Room Air PG Care Time/CCT Total # of Minutes Spent Total Time Spent with Patient: Total time spent is greater than 50% in coordination of care (as documented) at patient's floor/unit and/or counseling patient: Coding Level of Care Code 74951 SUB INP/OBS CARE 25MIN Diagnoses Hematuria R31.0 Hematuria type: gross Acute urinary retention R33.8 (1) Hematuria Hematuria type: gross Qualified Code(s): R31.0 - Gross hematuria
[2022-12-22 14:34] LABS: Creatinine Clr Calc Pharmacy 27.8 ml/min; Est GFR (African American) 21.2 ml/min; Est GFR (Non-African American) 18.2 ml/min
[2022-12-22 14:35] LABS: BUN Creatinine Ratio 18.2 (10-20); Calcium 7.8 mg/dl (8.6-10.3); Potassium 3.4 mmol/L (3.5-5.1)
[2022-12-22] MEDS ORDERED: SODIUM CHLORIDE 0.9% 500 ML IV SCH (15:15)
[2022-12-22] MEDS: SODIUM CHLORIDE 0.9% 1000ML 1,000 ML IV SCH (16:28)
--- NOTE | 2022-12-22 17:07 | Hospitalist Progress Note ---
Date of Service December 22, 2022 Assessment & Plan (1) Hematuria: Plan: H/O prostate cancer about 5 years ago and status post 44 radiation treatment and 4 infusion treatment. He has been complaining of hematuria for the last 3 months. Was seen by urology clinic on and the postvoid residual was 48 mL- apparent UA at that time did not show any infection. Continues to have ongoing hematuria and was unable to void and came to emergency room Gross hematuria Secondary to radiation cystitis in setting of chronic anticoagulation H/O prostate cancer S/P radiation and infusion --CT ABD:The bladder is decompressed around a Devlin catheter. The wall appears t hickened and there is surrounding inflammation. Correlate with clinical findings and urinalysis for evidence of cystitis. Hyperdense material is present within the bladder lumen as well as within a large bladder diverticulum. This likely represents blood clots. Again, this should be correlated with urinalysis. Consider nonemergent follow-up with urology to exclude the possibility of underlying bladder lesion. There is a punctate nonobstructing right renal calculus. Hepatomegaly and hepatic steatosis. Sigmoid diverticulosis without CT evidence of acute diverticulitis. There is an ovoid minimally complex fluid collection overlying the greater trochanter of the left proximal femur. This likely represents a seroma or hematoma. The sterility of this fluid cannot be assessed by imaging and clinical correlation will be required. -- Urine culture negative for UTI Appreciate urology input Monitor for any bleeding issues Continuous bladder irrigation discontinued Hand irrigate as needed for clot retention Plan for hyperbaric oxygen therapy as outpatient Needs follow-up with urology upon discharge Anticoagulation discontinued Bladder scan as needed to monitor for retention Monitor CBC Devlin catheter discontinued Symptomatic anemia Acute blood loss anemia due to hematuria S/P 3 unit PRBCs Monitor H&H and transfuse PRBCs as needed Hemoglobin 8.2 today VIOLETA on CKD III Likely multifactorial Cr 3.1 today Continue IV fluids Avoid nephrotoxic agents as able Check renal ultrasound Nephrology consulted Diarrhea Likely secondary to IV antibiotics Check stool for C. difficile if recurrence of diarrhea Received empiric IV antibiotics for cystitis Bladder outlet obstruction with hematuria H/O prostate cancer Continue Devlin catheter Appreciate urology input H/O Pulmonary embolism/DVT Coumadin discontinued due to gross hematuria/anemia Discussed with Dr. Gan on 12/18/22: Trial of Lovenox 30 mg SQ if okay with urology. If continues to bleed requiring blood transfusions, plan to hold off on further anticoagulation until hyperbaric oxygen therapy. Failed trial off Lovenox SQ--- discussed risks Vs benefits with anticoagulation with family/patient. Plan to discontinue anticoagulation for now given risks overweigh benefits. Patient and family agrees with the plan. Aortic stenosis: --ECHO-Echo was done on of this month showed normal LV size and systolic function with EF of 60 to 65%, no regional wall motion abnormalities, moderate concentric LVH, mild aortic stenosis, mild mitral regurgitation, mildly dilated ascending aorta of 4.4 cm, small pericardial effusion without tamponade, no significant change compared with prior study of 06/16/2001 COPD (chronic obstructive pulmonary disease): Has COPD on trilogy Follows with [employer] as outpatient No acute exacerbation Obstructive sleep apnea on trilogy CKD Monitor renal function DVT Px: SCDs Re: Hematuria Code Status Full Code Admission and Anticipated Discharge Date Admission Date: December 14, 2022 Subjective Patient is seen and examined at bedside States feeling better this morning Sitting in chair during my encounter Devlin catheter discontinued Denies any significant hematuria today No manual irrigation required overnight Updated patient's over the phone Renal function worsening Bladder scan showed no significant retention Denies any chest pain, dyspnea, nausea, abdominal pain Patient reports intermittent bladder pain Review of Systems Review of Systems: All systems reviewed & are unremarkable except as noted in Subjective Physical Exam Physical Exam: Physical Exam: Vitals signs as noted above General Appearance:Moderately built and nourished, no apparent distress Head: normocephalic, Atraumatic Eyes: normal inspection, EOMI Neck: supple, Trachea midline Respiratory/Chest: Decreased breath sounds, CTA, No accessory muscle use Cardiovascular: S1, S2, + murmur Abdomen/GI:Soft, Non tender, Bowel sounds present Extremities/Musculoskeletal:normal inspection, 1+ edema Neurologic/Psych:AAOX3, grossly no focal neurological deficits Skin: normal color, warm Results & Data Results & Data Vital Signs (Past 12 Hours) Vital Signs Temp Pulse Pulse Resp BP Pulse Ox O2 Del Method 12/22/22 15:41 36.8 C 77 18 130/74 97 Room Air 12/22/22 15:13 98 H 12/22/22 07:22 36.8 C 78 18 135/71 95 Room Air 12/22/22 07:15 75 Laboratory Results Short CBC 12/22/22 Range/Units 07:26 Hgb 8.2 L (14.0-18.0) g/dl Hct 26.4 L (42.0-52.0) % BMP 12/22/22 07:26 Sodium 136 Potassium 3.4 L Chloride 104 Carbon Dioxide 23 BUN 57 H Creatinine 3.14 H D Glucose 99 Calcium 7.8 L (1) Hematuria Hematuria type: gross Qualified Code(s): R31.0 - Gross hematuria
[2022-12-22] MEDS: CHOLECALCIFEROL 5,000 UNITS 125 MCG TAB PO SCH (21:28)
[2022-12-22] MEDS: DONEPEZIL HCL 10 MG TAB PO SCH (21:28)
[2022-12-22] MEDS: FLUTICASONE FUROATE 200MCG 14 PUFFS/INHALER INH SCH (21:28)
[2022-12-22] MEDS: UMECLIDINIUM/VILANTEROL 62.5/25MCG 7 PUFFS/INHALER INH SCH (21:28)
[2022-12-22] MEDS: MELATONIN 3 MG TAB PO PRN (21:28)
[2022-12-22] MEDS: ACETAMINOPHEN 325 MG TAB PO PRN (21:29)
--- NOTE | 2022-12-22 21:32 | Ultrasound Report ---
US renal/blad retro comp CLINICAL HISTORY: genevieve TECHNIQUE: Multiple sonographic real-time images of the kidneys and bladder were obtained. COMPARISON: Comparison is made to renal ultrasound 12/07/2017 FINDINGS: The right kidney measures 12.5 cm in length, and the left kidney measures 12.5 cm in length. The right kidney is normal in size, contour, cortical thickness, and echogenicity. No hydronephrosis is identified. No renal lesion is identified. The left kidney is normal in size, contour, cortical thickness and echogenicity. No hydronephrosis i s identified. No renal lesion is identified. Complex material is seen in the bladder without vascular flow. The bladder wall appears hyperemic. No large intraluminal mass is seen. IMPRESSION: Complex material in the bladder is nonspecific but may represent chronic blood clot, clinical correla tion and possible cystoscopy is recommended. ACT 112: Negative or not required by law. Electronically signed by: Alonso Fay M.D. 12/22/2022 9:30 PM
[2022-12-23] MEDS: SODIUM CHLORIDE 0.9% 1000ML 1,000 ML IV SCH ×3 (02:17→22:35)
[2022-12-23] MEDS: ASCORBIC ACID 500 MG TAB PO SCH (08:25)
[2022-12-23] MEDS: MONTELUKAST SODIUM 10 MG TABLET PO SCH (08:25)
[2022-12-23] MEDS: MULTIVITAMIN TAB PO SCH (08:26)
[2022-12-23] MEDS: HYDROCORTISONE 10 MG TAB PO SCH ×2 (08:26→16:35)
[2022-12-23] MEDS: FLUTICASONE PROPIONATE NA SPR 16 GM BTL SCH (08:26)
[2022-12-23] MEDS: ADVANCED PROBIOTIC 1250 MG CAPSULE PO SCH (08:26)
[2022-12-23] MEDS: TOCOPHERYL, DL-ALPHA 400 UNITS 180 MG CAP PO SCH (08:26)
[2022-12-23 08:46] LABS: Hematocrit (blood only) 26.1 % (42.0-52.0); Hemoglobin 8.2 g/dl (14.0-18.0); Mean Corpuscular Hemoglobin 26.1 pg (25.0-34.0); Mean Corpuscular Hgb Conc 31.4 g/dL (32.0-36.0); Mean Corpuscular Volume 83.1 fL (80.0-100.0); Mean Platelet Volume 9.4 fL (9.4-12.4); Platelet Count 228 K/uL (130-400); RDW Coefficient of Variation 15.2 % (11.5-14.5); RDW Standard Deviation 45.3 fL (36.4-46.3); Red Blood Count 3.14 M/uL (4.70-6.10); White Blood Count 8.44 K/ul (4.8-10.8)
[2022-12-23 08:56] LABS: BUN Creatinine Ratio 24.8 (10-20); Calcium 7.9 mg/dl (8.6-10.3); Creatinine Clr Calc Pharmacy 42.5 ml/min; Est GFR (African American) 35.2 ml/min; Est GFR (Non-African American) 30.4 ml/min; Potassium 3.6 mmol/L (3.5-5.1)
--- NOTE | 2022-12-23 09:39 | Urology Progress Note ---
Date of Service December 23, 2022 Assessment & Plan (1) Hematuria: (2) Acute urinary retention: Plan: Gross hematuria in the setting of known radiation cystitis and anticoagulation. - Pt afebrile, labs reviewed - creatinine improved to 2.06 today, Hgb stable at 8.2, no leukocytosis. - Urine culture 12/12 negative, treated with Ceftriaxone during admission. - Devlin discontinued yesterday. - Renal US showed no hydronephrosis, some complex material/possible chronic clot noted in bladder. - He is voiding spontaneously/incontinent since cath removal - denies hematuria/clots. - Bladder scans have been low. - As long as he is voiding adequately, it is better to go without catheter - higher likelihood of resolving hematuria. - Continue to bladder scan prn. - Continue supportive care and medical management per primary service. - Will arrange outpatient follow-up with urology. - Urology will follow peripherally. Admission and Anticipated Discharge Date Admission Date: December 14, 2022 Subjective Patient seen and examined at bedside this morning. He is resting in bed, arouses easily to his name. No acute issues overnight. Devlin was removed yesterday. He has been voiding/incontinent since removal. He denies dysuria or hematuria/clots. Bladder scans since cath removal have been low- 88 mL, 10 mL. Denies pain. No nausea or vomiting. No fever or chills. His creatinine increased to 3.14 on 12/22/2022, labs were obtained prior to catheter removal. He underwent renal ultrasound for evaluation of VIOLETA. Renal ultrasound reviewed and showed no hydronephrosis, complex material/debris noted in the bladder. Creatinine improved to 2.06 today. Review of Systems Constitutional: as per Subjective / HPI Gastrointestinal: as per Subjective / HPI Genitourinary: + as per Subjective / HPI Physical Exam Constitutional: no acute distress Respiratory: normal respiratory effort; no respiratory distress and no labored breathing Gastrointestinal (Abdomen): Percussion/Palpation: abdomen soft; abdomen nontender Musculoskeletal: Head/Neck/Chest: normocephalic Neurologic: awake Psychiatric: Orientation: alert, oriented x 3 and cooperative Results & Data Vital Signs (Past 12 Hours) Vital Signs Temp Pulse Pulse Resp BP BP Pulse Ox 12/23/22 08:01 36.8 C 67 20 128/70 93 12/23/22 06:53 68 12/23/22 03:00 36.4 C L 68 18 124/69 97 12/22/22 22:00 76 12/22/22 23:37 12/22/22 22:48 37 C 77 20 114/66 94 O2 Del Method 12/23/22 08:01 Room Air 12/23/22 06:53 12/23/22 03:00 Room Air 12/22/22 22:00 12/22/22 23:37 Room Air 12/22/22 22:48 Room Air PG Care Time/CCT Total # of Minutes Spent Total Time Spent with Patient: Total time spent is greater than 50% in coordination of care (as documented) at patient's floor/unit and/or counseling patient: Coding Level of Care Code 06787 SUB INP/OBS CARE 09/09MIN Diagnoses Hematuria R31.0 Hematuria type: gross Acute urinary retention R33.8 (1) Hematuria Hematuria type: gross Qualified Code(s): R31.0 - Gross hematuria
[2022-12-23] MEDS: LIDOCAINE 2% JELLY 5 ML TUBE EXT SCH (10:30)
--- NOTE | 2022-12-23 10:59 | Consultation Report ---
NEPHROLOGY CONSULTATION NOTE REASON FOR CONSULTATION: Acute renal failure on background CKD. HISTORY OF PRESENT ILLNESS: The patient is a 77-year-old male who has been in the hospital for about 11 days now. He was admitted on 12/12/2022 because of gross hematuria. The patient has been follow ed by urologist every day while in-house. The patient has a history of prostate cancer with extensiv e radiation treatment and has radiation cystitis. He has been having off and on gross hematuria for the last few months. He has CKD at baseline with a creatinine usually in the mid to high 1s. His cr eatinine remained at pretty much baseline up until 12/19/2022 and then started rising to 1.99, then y esterday was 3.14, which then led to the consult. The patient was given IV fluid overnight and with that, creatinine is down to 2.06 today. The patient's vital signs appear stable. I did not see any period of significant hypoxia or hypotension in the last few days. Devlin catheter was removed yester day as per the direction from urology. Since the Devlin removed, the patient has voided, but it appea rs more incontinence as per the nursing. The patient did have a renal ultrasound done yesterday, whic h did not show any hydronephrosis. The patient is not getting any potentially nephrotoxic medicines at this time. The patient is back to eating and drinking normally. ALLERGIES: List reviewed. MEDICATIONS: Home medication list was reviewed and is as per the reconciliation list and the H and P . Inpatient medication list was also reviewed in detail. PAST MEDICAL AND SURGICAL HISTORY: Includes history of adrenal insufficiency and takes hydrocortison e as an outpatient, allergic rhinitis, aortic stenosis, ascending aorta dilatation, history of asthma /COPD, history of cardiac arrest with contrast media, history of kidney stones, history of DVT and pu lmonary embolism, on long-term anticoagulation, history of prostate cancer, status post extensive rad iation, sleep apnea, chronic kidney disease stage III with a baseline creatinine around mid 1s, histo ry of appendicectomy, colonoscopy, right cataract surgery, TURP, cystoscopy multiple times. FAMILY HISTORY: Negative for renal disease or dialysis. SOCIAL HISTORY: Never smoked. Occasional alcohol. He is retired and lives with his at home. REVIEW OF SYSTEMS: Other than urinary complaints with gross hematuria, 12 systems were reviewed and negative. At this point, he feels fairly normal and denies any acute complaints. PHYSICAL EXAMINATION: GENERAL: Elderly white male who does not appear to be in any respiratory distress. He was able to g anthony me a detailed account of his medical problem and history. VITAL SIGNS: Blood pressure is 128/70, pulse rate 67, temperature 36.8, 93% on room air. HEENT: Mucous membranes are moist. NECK: Supple. No jugular venous distention. CHEST: Bilateral decreased breath sounds, prolonged expiration. CARDIOVASCULAR: S1 and S2, regular. ABDOMEN: Soft, nontender. EXTREMITIES: Show trace edema with features of chronic skin changes in both his legs. LABORATORY TESTS: Baseline creatinine around 1.6 and it remained at around baseline up until 3 days ago. It went up and peaked at a creatinine of 3.14 yesterday. This morning after IV fluids, is down to 2.06, BUN is down to 51. Sodium 139, potassium 3.6, chloride 109, calcium 7.9. Renal ultrasound done yesterday reviewed and does not show any hydronephrosis, but does have some clot in the bladder. ASSESSMENT AND PLAN: A 77-year-old male with a history of chronic kidney disease stage III, baseline creatinine around 1.6, admitted with gross hematuria almost 10 days ago. I have been consulted for acute renal failure on background CKD. The acute component happened for the last few days. Creatini ne went from 1.7 to 3.14 within a span of 3 days. With the use of IV fluid, it has gone down promptl y to 2 in less than a 24-hour time period. The etiology was most likely some degree of volume deplet ion. I would continue with IV fluid one more day, after that we will stop. No further workup is nee ded for acute renal failure as creatinine has already started to improve. Renal ultrasound already d one and he does not have hydronephrosis. However, Devlin catheter has been removed now and we do have to make sure that he does not have urinary retention after the Devlin has been removed. I would recom mend to do bladder scan after spontaneous voiding. Urology is still following. As long as he does n ot develop urinary retention, I expect his kidney function to be better in the coming days. His [facility] medication list was reviewed and he is on appropriate medication. Thank you very much for the consult. Job ID: [id number]
[2022-12-23] MEDS: PHENAZOPYRIDINE HCL 100 MG TAB PO PRN (12:24)
[2022-12-23] MEDS: oxyCODONE HCL IR 5 MG TAB (IMMEDIATE RELEASE) PO PRN ×3 (12:26→22:33)
[2022-12-23] MEDS: ACETAMINOPHEN 325 MG TAB PO PRN (14:37)
--- NOTE | 2022-12-23 15:24 | Hospitalist Progress Note ---
Date of Service December 23, 2022 Assessment & Plan (1) Hematuria: Plan: H/O prostate cancer about 5 years ago and status post 44 radiation treatment and 4 infusion treatment. He has been complaining of hematuria for the last 3 months. Was seen by urology clinic on and the postvoid residual was 48 mL- apparent UA at that time did not show any infection. 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 Cystoscopy done in August 2022 with urethral dilation and fulguration; was being planned for hyperbaric oxygen therapy as outpatient Brought to the hospital with shortness of breath. Found to be anemic --CT ABD:The bladder is decompressed around a Devlin catheter. The wall appears thickened and there is surrounding inflammation. Correlate with clinical findings and urinalysis for evidence of cystitis. Hyperdense material is present within the bladder lumen as well as within a large bladder diverticulum. This likely represents blood clots. Again, this should be correlated with urinalysis. Consider nonemergent follow-up with urology to exclude the possibility of underlying bladder lesion. There is a punctate nonobstructing right renal calculus. Hepatomegaly and hepatic steatosis. Sigmoid diverticulosis without CT evidence of acute diverticulitis. There is an ovoid minimally complex fluid collection overlying the greater trochanter of the left proximal femur. This likely represents a seroma or hematoma. The sterility of this fluid cannot be assessed by imaging and clinical correlation will be required. -- Urine culture negative for UTI Patient underwent continuous bladder irrigation during the hospitalization as per urology. Transfused 3 units of packed RBC. Devlin was removed on December 22, 2022. Patient voiding well without postvoid residual. Renal ultrasound from 12/22 results reviewed; complex material in the bladder seen likely chronic blood clot Discussed with urology; recommend conservative management. No plans for repeat cystoscopy. Plan for discharge to rehab, then home. Plan for outpatient hyperbaric oxygen treatment after discharging home Symptomatic anemia Acute blood loss anemia due to hematuria S/P 3 unit PRBCs Monitor H&H and transfuse PRBCs as needed Hemoglobin 8.2 today Obtain iron studies tomorrow. Will start IV iron from tomorrow. VIOLETA on CKD III, likely prerenal Creatinine bumped up to 3.14 yesterday, downtrended to 2.06 with iv hydration Renal usg as above. Continue iv fluids. Discussed with Nephrology. Diarrhea Likely secondary to IV antibiotics Check stool for C. difficile if recurrence of diarrhea Received empiric IV antibiotics for cystitis H/O Pulmonary embolism/DVT Coumadin discontinued due to gross hematuria/anemia Discussed with Dr. Gan on 12/18/22: Trial of Lovenox 30 mg SQ if okay with urology. If continues to bleed requiring blood transfusions, plan to hold off on further anticoagulation until hyperbaric oxygen therapy. Failed trial off Lovenox SQ--- discussed risks Vs benefits with anticoagulation with family/patient. Plan to discontinue anticoagulation for now given risks overweigh benefits. Patient and family agrees with the plan. Aortic stenosis: --ECHO-Echo was done on of this month showed normal LV size and systolic function with EF of 60 to 65%, no regional wall motion abnormalities, moderate concentric LVH, mild aortic stenosis, mild mitral regurgitation, mildly dilated ascending aorta of 4.4 cm, small pericardial effusion without tamponade, no significant change compared with prior study of 06/16/2001 COPD (chronic obstructive pulmonary disease): Has COPD on trilogy Follows with [employer] as outpatient No acute exacerbation Obstructive sleep apnea on trilogy CKD Monitor renal function DVT Px: SCDs Re: Hematuria Code Status Full Code Time spent evaluating patient, direct bedside care, chart review, placing orders, interpretation of diagnostic studies, discussion with consultants, patient, and family members, as well as other required patient management activities is 60 minutes. Please note the above document was generated using voice recognition software. It may contain grammatical, syntax or spelling errors. Any formal questions or concerns about the content, text or information contained within the body of this dictation should be directly addressed to the provider for clarification Admission and Anticipated Discharge Date Admission Date: December 14, 2022 Subjective Patient seen multiple times during the day. His and friend were at the bedside during the afternoon visit. Patient reports pain at the tip of the penis. Postvoid residual have been low. Review of Systems Review of Systems: All systems reviewed & are unremarkable except as noted in Subjective Physical Exam Physical Exam: Physical Exam: Vitals signs as noted above General Appearance:Moderately built and nourished, no apparent distress Head: normocephalic, Atraumatic Eyes: normal inspection, EOMI Neck: supple, Trachea midline Respiratory/Chest: Decreased breath sounds, CTA, No accessory muscle use Cardiovascular: S1, S2, + murmur Abdomen/GI:Soft, Non tender, Bowel sounds present Extremities/Musculoskeletal:normal inspection, 1+ edema Neurologic/Psych:AAOX3, grossly no focal neurological deficits Skin: normal color, warm Results & Data Results & Data Vital Signs (Past 12 Hours) Vital Signs Temp Pulse Pulse Resp BP BP Pulse Ox 12/23/22 11:51 36.4 C L 73 19 155/72 H 97 12/23/22 08:25 12/23/22 08:01 36.8 C 67 20 128/70 93 12/23/22 06:53 68 O2 Del Method 12/23/22 11:51 Room Air 12/23/22 08:25 Room Air 12/23/22 08:01 Room Air 12/23/22 06:53 Laboratory Results Laboratory Results WBC 8.44 K/ul (4.8-10.8) 12/23/22 08:09 RBC 3.14 M/uL (4.70-6.10) L 12/23/22 08:09 Hgb 8.2 g/dl (14.0-18.0) L 12/23/22 08:09 Hct 26.1 % (42.0-52.0) L 12/23/22 08:09 MCV 83.1 fL (80.0-100.0) 12/23/22 08:09 MCH 26.1 pg (25.0-34.0) 12/23/22 08:09 MCHC 31.4 g/dL (32.0-36.0) L 12/23/22 08:09 RDW Std Deviation 45.3 fL (36.4-46.3) 12/23/22 08:09 RDW Coeff of Robert 15.2 % (11.5-14.5) H 12/23/22 08:09 Plt Count 228 K/uL (130-400) 12/23/22 08:09 MPV 9.4 fL (9.4-12.4) 12/23/22 08:09 Immature Gran % (Auto) 0.4 % 12/16/22 07:13 Neut % (Auto) 77.3 % 12/16/22 07:13 Lymph % (Auto) 11.8 % 12/16/22 07:13 [place] % (Auto) 9.4 % 12/16/22 07:13 Eos % (Auto) 0.8 % 12/16/22 07:13 Baso % (Auto) 0.3 % 12/16/22 07:13 Neut # (Auto) 8.83 K/uL (1.40-6.50) H 12/16/22 07:13 Lymph # (Auto) 1.34 K/uL (1.2-3.4) 12/16/22 07:13 [place] # (Auto) 1.07 K/uL (0.11-0.59) H 12/16/22 07:13 Eos # (Auto) 0.09 K/uL (0-0.50) 12/16/22 07:13 Baso # (Auto) 0.03 K/uL (0-0.2) 12/16/22 07:13 Immature Gran # (Auto) 0.04 K/uL (0.01-0.20) 12/16/22 07:13 Absolute Nucleated RBC 0.02 K/uL (0-0.12) 12/19/22 07:25 Nucleated RBC % (auto) 0.2 % 12/19/22 07:25 RBC Morphology Unremarkable 12/12/22 11:59 PT 11.6 Seconds (9.0-12.0) 12/18/22 06:15 INR 1.1 (0.9-1.1) 12/18/22 06:15 APTT 31.3 Seconds (21.0-31.0) H 12/12/22 11:59 PTT Ratio 1.1 12/12/22 11:59 Sodium 139 mmol/L (136-145) 12/23/22 08:09 Potassium 3.6 mmol/L (3.5-5.1) 12/23/22 08:09 Chloride 109 mmol/L (98-107) H 12/23/22 08:09 Carbon Dioxide 23 mmol/L (21-32) 12/23/22 08:09 Anion Gap 7 (3-11) 12/23/22 08:09 BUN 51 mg/dl (6-23) H 12/23/22 08:09 Creatinine 2.06 mg/dl (0.6-1.4) H D 12/23/22 08:09 Est Cr Clr Drug Dosing 42.5 ml/min 12/23/22 08:09 Est GFR ( Amer) 35.2 ml/min 12/23/22 08:09 Est GFR (Non-Af Amer) 30.4 ml/min 12/23/22 08:09 BUN/Creatinine Ratio 24.8 (10-20) H 12/23/22 08:09 Glucose 91 mg/dl (70-99(Fasting)) 12/23/22 08:09 Calcium 7.9 mg/dl (8.6-10.3) L 12/23/22 08:09 Total Bilirubin 0.6 mg/dl (0.2-1.0) 12/16/22 07:13 AST 12 U/L (13-39) L 12/16/22 07:13 ALT 14 U/L (7-52) 12/16/22 07:13 Alkaline Phosphatase 59 U/L (34-104) 12/16/22 07:13 Total Protein 5.6 gm/dl (6.0-8.3) L 12/16/22 07:13 Albumin 3.5 gm/dl (3.4-5.0) 12/16/22 07:13 Globulin 2.1 gm/dl (2.5-4.0) L 12/16/22 07:13 Albumin/Globulin Ratio 1.7 (0.9-2) 12/16/22 07:13 Urine Color Red 12/12/22 12:12 Urine Appearance Cloudy (Clear) A 12/12/22 12:12 Urine pH 6.5 (4.5-7.5) 12/12/22 12:12 Ur Specific [place] 1.016 (1.000-1.030) 12/12/22 12:12 Urine Protein 3+ (Negative) H 12/12/22 12:12 Urine Glucose (UA) Negative (Negative) 12/12/22 12:12 Urine Ketones Negative (Negative) 12/12/22 12:12 Urine Blood 3+ (Negative) H 12/12/22 12:12 Urine Nitrite Positive (Negative) A 12/12/22 12:12 Urine Bilirubin 1+ (Negative) H 12/12/22 12:12 Urine Urobilinogen Negative (Negative) 12/12/22 12:12 Ur Leukocyte Esterase 2+ (Negative) H 12/12/22 12:12 Urine RBC >30 /hpf (0-4) H 12/12/22 12:12 Urine WBC >30 /hpf (0-5) H 12/12/22 12:12 Ur Epithelial Cells 5-10 /lpf (0-5) H 12/12/22 12:12 Urine Bacteria 1+ (Negative) H 12/12/22 12:12 Stl C. diff Tox B Gene (Neg) 12/17/22 20:50 SARS-CoV-2, RNA, NAAT NEGATIVE (NEGATIVE) 12/12/22 15:01 Blood Type A Positive 12/21/22 09:38 Blood Type Recheck A Positive 12/12/22 18:29 Antibody Screen NEGATIVE 12/21/22 09:38 Crossmatch See Detail 12/21/22 09:38 Impressions Abdomen/Pelvis CT 12/12/22 12:33 CT SCAN OF THE ABDOMEN AND PELVIS WITHOUT IV CONTRAST CLINICAL HISTORY: Dysuria. COMPARISON STUDY: Abdominal CT dated 12/02/2017. TECHNIQUE: CT scan of the abdomen and pelvis is performed from the lung bases to the proximal femora. Images are reviewed in the axial, sagittal, and coronal planes. IV contrast was not administered for this examination. A dose lowering technique was utilized adhering to the principles of ALARA. CT DOSE: 1479.16 mGy.cm FINDINGS: Lung bases: The heart is normal in size noting a small pericardial effusion. The lung bases are clear. There is a small hiatal hernia. Liver: The unenhanced liver is enlarged, measuring 18.6 cm in length. The liver demonstrates diffusely diminished attenuation indicating steatosis. Fatty sparing is seen adjacent to the gallbladder fossa. There is no intrahepatic biliary ductal dilatation. Gallbladder: Unremarkable. Spleen: Normal in size and attenuation. Pancreas: The unenhanced pancreas is grossly unremarkable. Adrenal glands: Unremarkable. Kidneys: The unenhanced kidneys demonstrate cortical atrophy and are without hydronephrosis. There is a punctate nonobstructing right renal calculus. No left renal calculi are identified and there is no ureteral stone. There is no evidence of contour deforming renal mass lesion. Abdominal vasculature: The abdominal aorta is normal in course and caliber noting moderate to advanced atherosclerotic calcification. There is ectasia of the hepatic artery which measures up to 14 mm in diameter. This is similar to previous. Bowel: There is mild sigmoid diverticulosis without CT evidence of acute diverticulitis. No bowel obstruction is identified. The appendix is not identified and reported surgically absent. Peritoneum: There is no intraperitoneal free air or abdominal ascites. There is a small fat-containing umbilical hernia. Lymphadenopathy: None. Pelvic viscera: The prostate gland is diminutive and heterogeneous, and contains metallic implants. The bladder is decompressed around a Devlin catheter. The bladder wall appears thickened comment with surrounding inflammation and foci of intramural gas. There is a large posterior bladder diverticulum which measures up to 5.6 cm. Hyperdense material within the bladder and the large bladder diverticulum likely represents blood clots. An additional small bladder diverticulum is seen on the right. Skeletal structures: The skeletal structures are osteopenic. There is moderate lumbosacral spondylosis. Degenerative change and partial fusion is seen in the sacroiliac joints. No lytic or blastic lesions are seen. 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 This is similar to previous Soft tissues: There is an approximately 10 x 7.5 x 5.5 cm ovoid minimally complex fluid collection overlying the greater trochanter of the left femur seen on axial image #427. IMPRESSION: 1. The bladder is decompressed around a Devlin catheter. The wall appears thickened and there is surrounding inflammation. Correlate with clinical findings and urinalysis for evidence of cystitis. 2. Hyperdense material is present within the bladder lumen as well as within a large bladder diverticulum. This likely represents blood clots. Again, this should be correlated with urinalysis. Consider nonemergent follow-up with urology to exclude the possibility of underlying bladder lesion. 3. There is a punctate nonobstructing right renal calculus. 4. Hepatomegaly and hepatic steatosis. 5. Sigmoid diverticulosis without CT evidence of acute diverticulitis. 6. There is an ovoid minimally complex fluid collection overlying the greater trochanter of the left proximal femur. This likely represents a seroma or hematoma. The sterility of this fluid cannot be assessed by imaging and clinical correlation will be required. 7. Additional findings as above. ACT 112: Negative or not required by law. Electronically signed by: Jluis Oh M.D. 12/12/2022 1:[address] 12/16/22 14:42 CT chest diagnostic wo con CT DOSE: 1103.45 mGy.cm HISTORY: COPD. Shortness of breath. TECHNIQUE: Multiaxial CT images of the chest were performed without contrast. A dose lowering technique was utilized adhering to the principles of ALARA. COMPARISON: Chest CTA 05/22/2014. FINDINGS: The central airways are patent. No pneumothorax. No pleural effusions. Mild emphysema. There is a punctate calcified granuloma seen within the base of the left lower lobe. A few small linear densities within the right lung posteriorly. This may represent subsegmental atelectasis are scarring. No focal lung consolidations to suggest pneumonia. No evidence for pulmonary edema. No suspicious lytic or blastic osseous lesions. Limited views of the upper abdomen demonstrate hepatic steatosis and a normal spleen. The punctate stone within the right kidney. The adrenal glands are unremarkable. There is a trace pericardial effusion. The heart is normal in size. Normal esophagus. No mediastinal or hilar lymphadenopathy. Normal thyroid gland. Moderate calcified plaque within the coronary arteries and aortic valve. There is mild calcified plaque within the thoracic aorta. There is mild aneurysmal dilatation of the ascending thoracic aorta measuring up to 4.3 cm in diameter. IMPRESSION: 1. No focal lung consolidations to suggest pneumonia. 2. Mild emphysema. 3. Hepatic steatosis. 4. Right-sided nephrolithiasis. 5. Mild aneurysmal dilatation of the ascending thoracic aorta measuring up to 4.3 cm in diameter. ACT 112: Negative or not required by law. Electronically signed by: Des Harrison M.D. 12/16/2022 4:34 PM Chest X-Ray 12/17/22 16:00 XR chest 1V portable CLINICAL HISTORY: post thoracentesis COMPARISON STUDY: Chest CT December 16, 2022. FINDINGS: There is no pneumothorax. No pleural effusion is identified. Minimal left basilar opacity favors atelectasis. There is no evidence for pulmonary edema. Cardiomediastinal silhouette is stable. IMPRESSION: No acute cardiopulmonary findings. No pneumothorax. ACT 112: Negative or not required by law. Electronically signed by: Boris Keys M.D. 12/17/2022 4:36 PM Renal Ultrasound 12/22/22 16:22 US renal/blad retro comp CLINICAL HISTORY: violeta TECHNIQUE: Multiple sonographic real-time images of the kidneys and bladder were obtained. COMPARISON: Comparison is made to renal ultrasound 12/07/2017 FINDINGS: The right kidney measures 12.5 cm in length, and the left kidney measures 12.5 cm in length. The right kidney is normal in size, contour, cortical thickness, and echogenicity. No hydronephrosis is identified. No renal lesion is identified. The left kidney is normal in size, contour, cortical thickness and echogenicity. No hydronephrosis is identified. No renal lesion is identified. Complex material is seen in the bladder without vascular flow. The bladder wall appears hyperemic. No large intraluminal mass is seen. IMPRESSION: Complex material in the bladder is nonspecific but may represent chronic blood clot, clinical correlation and possible cystoscopy is recommended. ACT 112: Negative or not required by law. Electronically signed by: Alonso Fay M.D. 12/22/2022 9:30 PM (1) Hematuria Hematuria type: gross Qualified Code(s): R31.0 - Gross hematuria
[2022-12-23] MEDS ORDERED: IRON SUCROSE 200 MG in 0.9 % SODIUM CHLORIDE 100 ML IV ONE (15:30)
[2022-12-23] MEDS: FLUTICASONE FUROATE 200MCG 14 PUFFS/INHALER INH SCH (20:48)
[2022-12-23] MEDS: UMECLIDINIUM/VILANTEROL 62.5/25MCG 7 PUFFS/INHALER INH SCH (20:48)
[2022-12-23] MEDS: DONEPEZIL HCL 10 MG TAB PO SCH (20:49)
[2022-12-23] MEDS: CHOLECALCIFEROL 5,000 UNITS 125 MCG TAB PO SCH (20:49)
[2022-12-23] MEDS: MELATONIN 3 MG TAB PO PRN (20:52)
[2022-12-24 08:08] LABS: Basophils # (auto) 0.04 K/uL (0-0.2); Basophils % (auto) 0.5 %; Eosinophils # (auto) 0.15 K/uL (0-0.50); Eosinophils % (auto) 1.8 %; Hematocrit (blood only) 24.9 % (42.0-52.0); Hemoglobin 7.6 g/dl (14.0-18.0); Immature Granulocytes # (auto) 0.08 K/uL (0.01-0.20); Lymphocytes # (auto) 1.19 K/uL (1.2-3.4); Lymphocytes % (auto) 14.2 %; Mean Corpuscular Hemoglobin 26.1 pg (25.0-34.0); Mean Corpuscular Hgb Conc 30.5 g/dL (32.0-36.0); Mean Corpuscular Volume 85.6 fL (80.0-100.0); Mean Platelet Volume 9.1 fL (9.4-12.4); Monocytes # (auto) 0.61 K/uL (0.11-0.59); Monocytes % (auto) 7.3 %; Neutrophils # (auto) 6.33 K/uL (1.40-6.50); Neutrophils % (auto) 75.2 %; Platelet Count 236 K/uL (130-400); RDW Coefficient of Variation 15.2 % (11.5-14.5); RDW Standard Deviation 47.6 fL (36.4-46.3); Red Blood Count 2.91 M/uL (4.70-6.10)
[2022-12-24] MEDS: ADVANCED PROBIOTIC 1250 MG CAPSULE PO SCH (08:25)
[2022-12-24] MEDS: TOCOPHERYL, DL-ALPHA 400 UNITS 180 MG CAP PO SCH (08:25)
[2022-12-24] MEDS: HYDROCORTISONE 10 MG TAB PO SCH ×2 (08:26→18:25)
[2022-12-24] MEDS: MONTELUKAST SODIUM 10 MG TABLET PO SCH (08:26)
[2022-12-24] MEDS: ASCORBIC ACID 500 MG TAB PO SCH (08:26)
[2022-12-24] MEDS: MULTIVITAMIN TAB PO SCH (08:26)
[2022-12-24] MEDS: FLUTICASONE PROPIONATE NA SPR 16 GM BTL SCH (08:27)
[2022-12-24 08:36] LABS: BUN Creatinine Ratio 26.3 (10-20); Calcium 7.8 mg/dl (8.6-10.3); Creatinine Clr Calc Pharmacy 54.9 ml/min; Est GFR (African American) 47.8 ml/min; Est GFR (Non-African American) 41.2 ml/min; Potassium 3.8 mmol/L (3.5-5.1)
[2022-12-24 08:53] LABS: Ferritin 48.6 ng/ml (8-388)
[2022-12-24 09:01] LABS: Polychromasia 1+
[2022-12-24] MEDS: SODIUM CHLORIDE 0.9% 1000ML 1,000 ML IV SCH (09:37)
--- NOTE | 2022-12-24 09:57 | Nephrology Progress Note ---
Date of Service December 24, 2022 Assessment & Plan Admission and Anticipated Discharge Date Admission Date: December 14, 2022 Subjective S--making urine ?? amount as he is incontinent. labs better PHYSICAL EXAMINATION: GENERAL: Elderly white male who does not appear to be in any respiratory distress. He was able to give me a detailed account of his medical problem and history. HEENT: Mucous membranes are moist. NECK: Supple. No jugular venous distention. CHEST: Bilateral decreased breath sounds, prolonged expiration. CARDIOVASCULAR: S1 and S2, regular. ABDOMEN: Soft, nontender. EXTREMITIES: Show trace edema with features of chronic skin changes in both his legs. LABORATORY TESTS: Baseline creatinine around 1.6 and it remained at around baseline up until 3 days ago. It went up and peaked at a creatinine of 3.14 yesterday. This morning after IV fluids, is down to 2.06, BUN is down to 51. Sodium 139, potassium 3.6, chloride 109, calcium 7.9. Renal ultrasound done yesterday reviewed and does not show any hydronephrosis, but does have some clot in the bladder. ASSESSMENT AND PLAN: A 77-year-old male with a history of chronic kidney disease stage III, baseline creatinine around 1.6, admitted with gross hematuria almost 10 days ago. Arsenio--- The acute component happened for the last few days. Creatinine went from 1.7 to 3.14 within a span of 3 days. With the use of IV fluid, it has gone down promptly to 2 and now to baseline 1.6. The etiology was most likely some degree of volume depletion. will stop iv fluid. Renal ultrasound already done and he does not have hydronephrosis. However, Devlin catheter has been removed now and we do have to make sure that he does not have urinary retention after the Devlin has been removed. I would recommend to do bladder scan after spontaneous voiding. Results & Data Vital Signs (Past 12 Hours) Vital Signs Temp Pulse Pulse Resp BP Pulse Ox O2 Del Method 12/24/22 08:11 36.4 C L 66 18 131/73 96 Room Air 12/24/22 03:15 36.8 C 69 18 121/72 98 Room Air 12/23/22 22:00 71 12/23/22 22:00 36.5 C 73 18 155/79 H 99 Room Air
[2022-12-24] MEDS ORDERED: IRON SUCROSE 200 MG in 0.9 % SODIUM CHLORIDE 100 ML IV ONE (10:00)
[2022-12-24] MEDS: ACETAMINOPHEN 325 MG TAB PO PRN ×2 (11:37→18:28)
[2022-12-24] MEDS: LIDOCAINE 2% JELLY 5 ML TUBE EXT SCH (11:38)
--- NOTE | 2022-12-24 13:40 | Hospitalist Progress Note ---
Date of Service December 24, 2022 Assessment & Plan (1) Hematuria: Plan: H/O prostate cancer about 5 years ago and status post 44 radiation treatment and 4 infusion treatment. He has been complaining of hematuria for the last 3 months. Was seen by urology clinic on and the postvoid residual was 48 mL- apparent UA at that time did not show any infection. 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 Cystoscopy done in August 2022 with urethral dilation and fulguration; was being planned for hyperbaric oxygen therapy as outpatient Brought to the hospital with shortness of breath. Found to be anemic --CT ABD:The bladder is decompressed around a Devlin catheter. The wall appears thickened and there is surrounding inflammation. Correlate with clinical findings and urinalysis for evidence of cystitis. Hyperdense material is present within the bladder lumen as well as within a large bladder diverticulum. This likely represents blood clots. Again, this should be correlated with urinalysis. Consider nonemergent follow-up with urology to exclude the possibility of underlying bladder lesion. There is a punctate nonobstructing right renal calculus. Hepatomegaly and hepatic steatosis. Sigmoid diverticulosis without CT evidence of acute diverticulitis. There is an ovoid minimally complex fluid collection overlying the greater trochanter of the left proximal femur. This likely represents a seroma or hematoma. The sterility of this fluid cannot be assessed by imaging and clinical correlation will be required. -- Urine culture negative for UTI Patient underwent continuous bladder irrigation during the hospitalization as per urology. Transfused 3 units of packed RBC. Devlin was removed on December 22, 2022. Patient voiding well without postvoid residual. Renal ultrasound from 12/22 results reviewed; complex material in the bladder seen likely chronic blood clot Discussed with urology; recommend conservative management. No plans for repeat cystoscopy. Plan for discharge to rehab, then home. Plan for outpatient hyperbaric oxygen treatment after discharging home Symptomatic anemia Acute blood loss anemia due to hematuria S/P 3 unit PRBCs Monitor H&H and transfuse PRBCs as needed Hemoglobin 8.2 today Iron studies personally reviewed; consistent with iron deficiency anemia. Received IV iron today. Continue IV iron while inpatient. VIOLETA on CKD III, likely prerenal Creatinine bumped up to 3.14 yesterday, downtrended to 1.6 with iv hydration Renal usg as above. Diarrhea Likely secondary to IV antibiotics Check stool for C. difficile if recurrence of diarrhea Received empiric IV antibiotics for cystitis H/O Pulmonary embolism/DVT Coumadin discontinued due to gross hematuria/anemia Discussed with Dr. Gan on 12/18/22: Trial of Lovenox 30 mg SQ if okay with urology. If continues to bleed requiring blood transfusions, plan to hold off on further anticoagulation until hyperbaric oxygen therapy. Failed trial off Lovenox SQ--- discussed risks Vs benefits with anticoagulation with family/patient. Plan to discontinue anticoagulation for now given risks overweigh benefits. Patient and family agrees with the plan. 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 Please note the above document was generated using voice recognition software. It may contain grammatical, syntax or spelling errors. Any formal questions or concerns about the content, text or information contained within the body of this dictation should be directly addressed to the provider for clarification Admission and Anticipated Discharge Date Admission Date: December 14, 2022 Subjective Patient seen and examined multiple times. His was at the bedside when seen in the afternoon. He is sitting up at the side of the bed comfortably. Reports incontinence. Review of Systems Review of Systems: All systems reviewed & are unremarkable except as noted in Subjective Physical Exam Physical Exam: Physical Exam: Vitals signs as noted above General Appearance:Moderately built and nourished, no apparent distress Head: normocephalic, Atraumatic Eyes: normal inspection, EOMI Neck: supple, Trachea midline Respiratory/Chest: Decreased breath sounds, CTA, No accessory muscle use Cardiovascular: S1, S2, + murmur Abdomen/GI:Soft, Non tender, Bowel sounds present Extremities/Musculoskeletal:normal inspection, 1+ edema Neurologic/Psych:AAOX3, grossly no focal neurological deficits Skin: normal color, warm Results & Data Results & Data Vital Signs (Past 12 Hours) Vital Signs Temp Pulse Pulse Resp BP Pulse Ox O2 Del Method 12/24/22 07:00 65 12/24/22 11:29 36.5 C 73 18 146/73 H 98 Room Air 12/24/22 08:11 36.4 C L 66 18 131/73 96 Room Air 12/24/22 03:15 36.8 C 69 18 121/72 98 Room Air Laboratory Results Laboratory Results WBC 8.40 K/ul (4.8-10.8) 12/24/22 07:36 RBC 2.91 M/uL (4.70-6.10) L 12/24/22 07:36 Hgb 7.6 g/dl (14.0-18.0) L 12/24/22 07:36 Hct 24.9 % (42.0-52.0) L 12/24/22 07:36 MCV 85.6 fL (80.0-100.0) 12/24/22 07:36 MCH 26.1 pg (25.0-34.0) 12/24/22 07:36 MCHC 30.5 g/dL (32.0-36.0) L 12/24/22 07:36 RDW Std Deviation 47.6 fL (36.4-46.3) H 12/24/22 07:36 RDW Coeff of Robert 15.2 % (11.5-14.5) H 12/24/22 07:36 Plt Count 236 K/uL (130-400) 12/24/22 07:36 MPV 9.1 fL (9.4-12.4) L 12/24/22 07:36 Immature Gran % (Auto) 1.0 % 12/24/22 07:36 Neut % (Auto) 75.2 % 12/24/22 07:36 Lymph % (Auto) 14.2 % 12/24/22 07:36 [place] % (Auto) 7.3 % 12/24/22 07:36 Eos % (Auto) 1.8 % 12/24/22 07:36 Baso % (Auto) 0.5 % 12/24/22 07:36 Neut # (Auto) 6.33 K/uL (1.40-6.50) 12/24/22 07:36 Lymph # (Auto) 1.19 K/uL (1.2-3.4) L 12/24/22 07:36 [place] # (Auto) 0.61 K/uL (0.11-0.59) H 12/24/22 07:36 Eos # (Auto) 0.15 K/uL (0-0.50) 12/24/22 07:36 Baso # (Auto) 0.04 K/uL (0-0.2) 12/24/22 07:36 Immature Gran # (Auto) 0.08 K/uL (0.01-0.20) 12/24/22 07:36 Absolute Nucleated RBC 0.02 K/uL (0-0.12) 12/19/22 07:25 Nucleated RBC % (auto) 0.2 % 12/19/22 07:25 RBC Morphology Unremarkable 12/12/22 11:59 Polychromasia 1+ 12/24/22 07:36 PT 11.6 Seconds (9.0-12.0) 12/18/22 06:15 INR 1.1 (0.9-1.1) 12/18/22 06:15 APTT 31.3 Seconds (21.0-31.0) H 12/12/22 11:59 PTT Ratio 1.1 12/12/22 11:59 Sodium 142 mmol/L (136-145) 12/24/22 07:36 Potassium 3.8 mmol/L (3.5-5.1) 12/24/22 07:36 Chloride 111 mmol/L (98-107) H 12/24/22 07:36 Carbon Dioxide 24 mmol/L (21-32) 12/24/22 07:36 Anion Gap 7 (3-11) 12/24/22 07:36 BUN 42 mg/dl (6-23) H 12/24/22 07:36 Creatinine 1.60 mg/dl (0.6-1.4) H D 12/24/22 07:36 Est Cr Clr Drug Dosing 54.9 ml/min 12/24/22 07:36 Est GFR ( Amer) 47.8 ml/min 12/24/22 07:36 Est GFR (Non-Af Amer) 41.2 ml/min 12/24/22 07:36 BUN/Creatinine Ratio 26.3 (10-20) H 12/24/22 07:36 Glucose 92 mg/dl (70-99(Fasting)) 12/24/22 07:36 Calcium 7.8 mg/dl (8.6-10.3) L 12/24/22 07:36 Iron 10 mcg/dl (35-175) L 12/24/22 07:36 Unsaturated IBC 224 mcg/dl (155-355) 12/24/22 07:36 Ferritin 48.6 ng/ml (8-388) 12/24/22 07:36 Total Bilirubin 0.6 mg/dl (0.2-1.0) 12/16/22 07:13 AST 12 U/L (13-39) L 12/16/22 07:13 ALT 14 U/L (7-52) 12/16/22 07:13 Alkaline Phosphatase 59 U/L (34-104) 12/16/22 07:13 Total Protein 5.6 gm/dl (6.0-8.3) L 12/16/22 07:13 Albumin 3.5 gm/dl (3.4-5.0) 12/16/22 07:13 Globulin 2.1 gm/dl (2.5-4.0) L 12/16/22 07:13 Albumin/Globulin Ratio 1.7 (0.9-2) 12/16/22 07:13 Urine Color Red 12/12/22 12:12 Urine Appearance Cloudy (Clear) A 12/12/22 12:12 Urine pH 6.5 (4.5-7.5) 12/12/22 12:12 Ur Specific [place] 1.016 (1.000-1.030) 12/12/22 12:12 Urine Protein 3+ (Negative) H 12/12/22 12:12 Urine Glucose (UA) Negative (Negative) 12/12/22 12:12 Urine Ketones Negative (Negative) 12/12/22 12:12 Urine Blood 3+ (Negative) H 12/12/22 12:12 Urine Nitrite Positive (Negative) A 12/12/22 12:12 Urine Bilirubin 1+ (Negative) H 12/12/22 12:12 Urine Urobilinogen Negative (Negative) 12/12/22 12:12 Ur Leukocyte Esterase 2+ (Negative) H 12/12/22 12:12 Urine RBC >30 /hpf (0-4) H 12/12/22 12:12 Urine WBC >30 /hpf (0-5) H 12/12/22 12:12 Ur Epithelial Cells 5-10 /lpf (0-5) H 12/12/22 12:12 Urine Bacteria 1+ (Negative) H 12/12/22 12:12 Stl C. diff Tox B Gene (Neg) 12/17/22 20:50 SARS-CoV-2, RNA, NAAT NEGATIVE (NEGATIVE) 12/12/22 15:01 Blood Type A Positive 12/21/22 09:38 Blood Type Recheck A Positive 12/12/22 18:29 Antibody Screen NEGATIVE 12/21/22 09:38 Crossmatch See Detail 12/21/22 09:38 Impressions Abdomen/Pelvis CT 12/12/22 12:33 CT SCAN OF THE ABDOMEN AND PELVIS WITHOUT IV CONTRAST CLINICAL HISTORY: Dysuria. COMPARISON STUDY: Abdominal CT dated 12/02/2017. TECHNIQUE: CT scan of the abdomen and pelvis is performed from the lung bases to the proximal femora. Images are reviewed in the axial, sagittal, and coronal planes. IV contrast was not administered for this examination. A dose lowering technique was utilized adhering to the principles of ALARA. CT DOSE: 1479.16 mGy.cm FINDINGS: Lung bases: The heart is normal in size noting a small pericardial effusion. The lung bases are clear. There is a small hiatal hernia. Liver: The unenhanced liver is enlarged, measuring 18.6 cm in length. The liver demonstrates diffusely diminished attenuation indicating steatosis. Fatty sparing is seen adjacent to the gallbladder fossa. There is no intrahepatic biliary ductal dilatation. Gallbladder: Unremarkable. Spleen: Normal in size and attenuation. Pancreas: The unenhanced pancreas is grossly unremarkable. Adrenal glands: Unremarkable. Kidneys: The unenhanced kidneys demonstrate cortical atrophy and are without hydronephrosis. There is a punctate nonobstructing right renal calculus. No left renal calculi are identified and there is no ureteral stone. There is no evidence of contour deforming renal mass lesion. Abdominal vasculature: The abdominal aorta is normal in course and caliber noting moderate to advanced atherosclerotic calcification. There is ectasia of the hepatic artery which measures up to 14 mm in diameter. This is similar to previous. Bowel: There is mild sigmoid diverticulosis without CT evidence of acute diverticulitis. No bowel obstruction is identified. The appendix is not identified and reported surgically absent. Peritoneum: There is no intraperitoneal free air or abdominal ascites. There is a small fat-containing umbilical hernia. Lymphadenopathy: None. Pelvic viscera: The prostate gland is diminutive and heterogeneous, and contains metallic implants. The bladder is decompressed around a Devlin catheter. The bladder wall appears thickened comment with surrounding inflammation and foci of intramural gas. There is a large posterior bladder diverticulum which measures up to 5.6 cm. Hyperdense material within the bladder and the large bladder diverticulum likely represents blood clots. An additional small bladder diverticulum is seen on the right. Skeletal structures: The skeletal structures are osteopenic. There is moderate lumbosacral spondylosis. Degenerative change and partial fusion is seen in the sacroiliac joints. No lytic or blastic lesions are seen. 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 This is similar to previous Soft tissues: There is an approximately 10 x 7.5 x 5.5 cm ovoid minimally complex fluid collection overlying the greater trochanter of the left femur seen on axial image #427. IMPRESSION: 1. The bladder is decompressed around a Devlin catheter. The wall appears thickened and there is surrounding inflammation. Correlate with clinical findings and urinalysis for evidence of cystitis. 2. Hyperdense material is present within the bladder lumen as well as within a large bladder diverticulum. This likely represents blood clots. Again, this should be correlated with urinalysis. Consider nonemergent follow-up with urology to exclude the possibility of underlying bladder lesion. 3. There is a punctate nonobstructing right renal calculus. 4. Hepatomegaly and hepatic steatosis. 5. Sigmoid diverticulosis without CT evidence of acute diverticulitis. 6. There is an ovoid minimally complex fluid collection overlying the greater trochanter of the left proximal femur. This likely represents a seroma or hematoma. The sterility of this fluid cannot be assessed by imaging and clinical correlation will be required. 7. Additional findings as above. ACT 112: Negative or not required by law. Electronically signed by: Jluis Oh M.D. 12/12/2022 1:[address] 12/16/22 14:42 CT chest diagnostic wo con CT DOSE: 1103.45 mGy.cm HISTORY: COPD. Shortness of breath. TECHNIQUE: Multiaxial CT images of the chest were performed without contrast. A dose lowering technique was utilized adhering to the principles of ALARA. COMPARISON: Chest CTA 05/22/2014. FINDINGS: The central airways are patent. No pneumothorax. No pleural effusions. Mild emphysema. There is a punctate calcified granuloma seen within the base of the left lower lobe. A few small linear densities within the right lung posteriorly. This may represent subsegmental atelectasis are scarring. No focal lung consolidations to suggest pneumonia. No evidence for pulmonary edema. No s uspicious lytic or blastic osseous lesions. Limited views of the upper abdomen demonstrate hepatic steatosis and a normal spleen. The punctate stone within the right kidney. The adrenal glands are unremarkable. There is a trace pericardial effusion. The heart is normal in size. Normal esophagus. No mediastinal or hilar lymphadenopathy. Normal thyroid gland. Moderate calcified plaque within the cor onary arteries and aortic valve. There is mild calcified plaque within the thoracic aorta. There is mild aneurysmal dilatation of the ascending thoracic aorta measuring up to 4.3 cm in diameter. IMPRESSION: 1. No focal lung consolidations to suggest pneumonia. 2. Mild emphysema. 3. Hepatic steatosis. 4. Right-sided nephrolithiasis. 5. Mild aneurysmal dilatation of the ascending thoracic aorta measuring up to 4.3 cm in diameter. ACT 112: Negative or not required by law. Electronically signed by: Des Harrison M.D. 12/16/2022 4:34 PM Chest X-Ray 12/17/22 16:00 XR chest 1V portable CLINICAL HISTORY: post thoracentesis COMPARISON STUDY: Chest CT December 16, 2022. FINDINGS: There is no pneumothorax. No pleural effusion is identified. Minimal l eft basilar opacity favors atelectasis. There is no evidence for pulmonary edema. Cardiomediastinal silhouette is stable. IMPRESSION: No acute cardiopulmonary findings. No pneumothorax. ACT 112: Negative or not required by law. Electronically signed by: Boris Keys M.D. 12/17/2022 4:36 PM Renal Ultrasound 12/22/22 16:22 US renal/blad retro comp CLINICAL HISTORY: violeta TECHNIQUE: Multiple sonographic real-time images of the kidneys and bladder were obtained. COMPARISON: Comparison is made to renal ultrasound 12/07/2017 FINDINGS: The right kidney measures 12.5 cm in length, and the left kidney measures 12.5 cm in length. The right kidney is normal in size, contour, cortical thickness, and echogenicity. No hydronephrosis is identified. No renal lesion is identified. The left kidney is normal in size, contour, cortical thickness and echogenicity. No hydronephrosis is identified. No renal lesion is identified. Complex material is seen in the bladder without vascular flow. The bladder wall appears hyperemic. No large intraluminal mass is seen. IMPRESSION: Complex material in the bladder is nonspecific but may represent chronic blood clot, clinical correlation and possible cystoscopy is recommended. ACT 112: Negative or not required by law. Electronically signed by: Alonso Fay M.D. 12/22/2022 9:30 PM (1) Hematuria Hematuria type: gross Qualified Code(s): R31.0 - Gross hematuria
--- NOTE | 2022-12-24 14:30 | Urology Progress Note ---
Date of Service December 24, 2022 Assessment & Plan (1) Hematuria: (2) Acute urinary retention: Plan: Gross hematuria in the setting of known radiation cystitis and anticoagulation. - Pt afebrile, labs reviewed - creatinine improved to 1.6 today, Hgb 7.6, no leukocytosis. - Urine culture 12/12 negative, treated with Ceftriaxone during admission. - Devlin discontinued on 12/22. - Renal US 12/22 showed no hydronephrosis, some complex material/possible chronic clot noted in bladder. - He is voiding spontaneously/incontinent since cath removal - some sediment noted, denies hematuria/clots. - Bladder scans have been low - 6 mL today at time of my exam. - As long as he is voiding adequately, it is better to go without catheter - higher likelihood of resolving hematuria. - Continue to bladder scan qshift and prn. Discussed incontinence with patient. We discussed it may take time to regain some bladder control after catheter removal and being deconditioned. Encouraged bladder training with timed/scheduled voiding into the urinal. Can check post void residual with bladder scan. Ensure bowels are moving. Continue supportive care and medical management per primary service. Plan for hyperbaric oxygen after discharge as previously discussed. Will ar range outpatient follow-up with urology. Called patient's , Ivet, with update and answered questions. Urology will follow peripherally. Admission and Anticipated Discharge Date Admission Date: December 14, 2022 Supervising Physician Co-Signing Physician Notes Discussed patient with KESHAV. Agree with plan. Subjective Urology asked to reassess patient due to incontinence and questions. Patient seen and examined at bedside. He is awake and resting in bed. He reports urinary incontinence, especially with position changes. No dysuria. Reports urine is dark in color. No abdominal or suprapubic discomfort. No nausea or vomiting. No fever or chills. Review of Systems Constitutional: as per Subjective / HPI Gastrointestinal: as per Subjective / HPI Genitourinary: + as per Subjective / HPI Physical Exam Constitutional: no acute distress Respiratory: normal respiratory effort; no respiratory distress and no labored breathing Gastrointestinal (Abdomen): Inspection/Auscultation: abdomen normal to inspection; abdomen not distended Percussion/Palpation: abdomen soft Musculoskeletal: Head/Neck/Chest: normocephalic Neurologic: awake Psychiatric: Orientation: alert, oriented x 3 and cooperative Genitourinary: Urinal was situated under penis, no urine in urinal at the time Results & Data Vital Signs (Past 12 Hours) Vital Signs Temp Pulse Pulse Resp BP Pulse Ox O2 Del Method 12/24/22 07:00 65 12/24/22 11:29 36.5 C 73 18 146/73 H 98 Room Air 12/24/22 08:11 36.4 C L 66 18 131/73 96 Room Air 12/24/22 03:15 36.8 C 69 18 121/72 98 Room Air PG Care Time/CCT Total # of Minutes Spent Total Time Spent with Patient: Total time spent is greater than 50% in coordination of care (as documented) at patient's floor/unit and/or counseling patient: Coding Level of Care Code 42589 SUB INP/OBS CARE 2/35MIN Diagnoses Hematuria R31.0 Hematuria type: gross Acute urinary retention R33.8 (1) Hematuria Hematuria type: gross Qualified Code(s): R31.0 - Gross hematuria
[2022-12-24] MEDS: CHOLECALCIFEROL 5,000 UNITS 125 MCG TAB PO SCH (22:03)
[2022-12-24] MEDS: UMECLIDINIUM/VILANTEROL 62.5/25MCG 7 PUFFS/INHALER INH SCH (22:03)
[2022-12-24] MEDS: DONEPEZIL HCL 10 MG TAB PO SCH (22:03)
[2022-12-24] MEDS: FLUTICASONE FUROATE 200MCG 14 PUFFS/INHALER INH SCH (22:03)
[2022-12-25] MEDS: ACETAMINOPHEN 325 MG TAB PO PRN ×2 (00:15→22:29)
[2022-12-25 06:22] LABS: Basophils # (auto) 0.04 K/uL (0-0.2); Basophils % (auto) 0.5 %; Eosinophils % (auto) 1.2 %; Hematocrit (blood only) 24.9 % (42.0-52.0); Hemoglobin 7.5 g/dl (14.0-18.0); Immature Granulocytes # (auto) 0.13 K/uL (0.01-0.20); Immature Granulocytes % (auto) 1.6 %; Lymphocytes # (auto) 1.43 K/uL (1.2-3.4); Lymphocytes % (auto) 17.3 %; Mean Corpuscular Hemoglobin 25.9 pg (25.0-34.0); Mean Corpuscular Hgb Conc 30.1 g/dL (32.0-36.0); Mean Corpuscular Volume 85.9 fL (80.0-100.0); Mean Platelet Volume 8.8 fL (9.4-12.4); Monocytes # (auto) 0.52 K/uL (0.11-0.59); Monocytes % (auto) 6.3 %; Neutrophils # (auto) 6.05 K/uL (1.40-6.50); Neutrophils % (auto) 73.1 %; Platelet Count 251 K/uL (130-400); RDW Coefficient of Variation 15.5 % (11.5-14.5); White Blood Count 8.27 K/ul (4.8-10.8)
[2022-12-25 06:39] LABS: BUN Creatinine Ratio 23.6 (10-20); Calcium 7.9 mg/dl (8.6-10.3); Creatinine Clr Calc Pharmacy 60.8 ml/min; Est GFR (African American) 54.3 ml/min; Est GFR (Non-African American) 46.8 ml/min; Potassium 4.2 mmol/L (3.5-5.1)
[2022-12-25 06:43] LABS: RBC Morphology Unremarkable
[2022-12-25] MEDS ORDERED: IRON SUCROSE 200 MG in 0.9 % SODIUM CHLORIDE 100 ML IV ONE (08:30)
[2022-12-25] MEDS: MONTELUKAST SODIUM 10 MG TABLET PO SCH (08:56)
[2022-12-25] MEDS: FLUTICASONE PROPIONATE NA SPR 16 GM BTL SCH (08:56)
[2022-12-25] MEDS: ASCORBIC ACID 500 MG TAB PO SCH (08:57)
[2022-12-25] MEDS: ADVANCED PROBIOTIC 1250 MG CAPSULE PO SCH (08:57)
[2022-12-25] MEDS: TOCOPHERYL, DL-ALPHA 400 UNITS 180 MG CAP PO SCH (08:57)
[2022-12-25] MEDS: MULTIVITAMIN TAB PO SCH (08:58)
[2022-12-25] MEDS: HYDROCORTISONE 10 MG TAB PO SCH ×2 (08:59→16:59)
--- NOTE | 2022-12-25 13:31 | Hospitalist Progress Note ---
Date of Service December 25, 2022 Assessment & Plan (1) Hematuria: Plan: H/O prostate cancer about 5 years ago and status post 44 radiation treatment and 4 infusion treatment. He has been complaining of hematuria for the last 3 months. Was seen by urology clinic on and the postvoid residual was 48 mL- apparent UA at that time did not show any infection. 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 Cystoscopy done in August 2022 with urethral dilation and fulguration; was being planned for hyperbaric oxygen therapy as outpatient Brought to the hospital with shortness of breath. Found to be anemic --CT ABD:The bladder is decompressed around a Devlin catheter. The wall appears thickened and there is surrounding inflammation. Correlate with clinical findings and urinalysis for evidence of cystitis. Hyperdense material is present within the bladder lumen as well as within a large bladder diverticulum. This likely represents blood clots. Again, this should be correlated with urinalysis. Consider nonemergent follow-up with urology to exclude the possibility of underlying bladder lesion. There is a punctate nonobstructing right renal calculus. Hepatomegaly and hepatic steatosis. Sigmoid diverticulosis without CT evidence of acute diverticulitis. There is an ovoid minimally complex fluid collection overlying the greater trochanter of the left proximal femur. This likely represents a seroma or hematoma. The sterility of this fluid cannot be assessed by imaging and clinical correlation will be required. -- Urine culture negative for UTI Patient underwent continuous bladder irrigation earlier in the hospitalization as per urology. Transfused 3 units of packed RBC. Devlin was removed on December 22, 2022. patient has been incontinent since Devlin removal; still has some gross hematuria. Renal ultrasound from 12/22 results reviewed; complex material in the bladder seen likely chronic blood clot Discussed with urology regarding the ultrasound findings; recommend conservative management. No plans for repeat cystoscopy. Plan for discharge to rehab, then home. Plan for outpatient hyperbaric oxygen treatment after discharging home Awaiting placement Symptomatic anemia Acute blood loss anemia due to hematuria S/P 3 unit PRBCs Monitor H&H and transfuse PRBCs as needed Hemoglobin 7.5 today Iron studies personally reviewed; consistent with iron deficiency anemia. Ferritin of 48 Received IV iron today. Continue IV iron while inpatient. VIOLETA on CKD III, likely prerenal Creatinine bumped up to 3.14 during the hospitalization downtrended to baseline with iv hydration Renal usg as above. Diarrhea Likely secondary to IV antibiotics Check stool for C. difficile if recurrence of diarrhea Received empiric IV antibiotics for cystitis H/O Pulmonary embolism/DVT Coumadin discontinued due to gross hematuria/anemia Discussed with Dr. Gan on 12/18/22: Trial of Lovenox 30 mg SQ if okay with u rology. If continues to bleed requiring blood transfusions, plan to hold off on further anticoagulation until hyperbaric oxygen therapy. Failed trial off Lovenox SQ--- previous hospitalist discussed risks Vs benefits with anticoagulation with family/patient. Plan to discontinue anticoagulation for now given risks overweigh benefits. Patient and family agrees with the plan. Aortic stenosis: --ECHO-Echo was done on of this month showed normal LV size and systolic function with EF of 60 to 65%, no regional wall motion abnormalities, moderate concentric LVH, mild aortic stenosis, mild mitral regurgitation, mildly dilated ascending aorta of 4.4 cm, small pericardial effusion without tamponade, no significant change compared with prior study of 06/16/2001 COPD (chronic obstructive pulmonary disease): Has COPD on trilogy Follows with [facility] Operator as outpatient No acute exacerbation Obstructive sleep apnea on trilogy CKD Monitor renal function DVT Px: SCDs Re: Hematuria Code Status Full Code Time spent evaluating patient, direct bedside care, chart review, placing orders, interpretation of diagnostic studies, discussion with consultants, patient, and family members, as well as other required patient management activities is 60 minutes. Please note the above document was generated using voice recognition software. It may contain grammatical, syntax or spelling errors. Any formal questions or concerns about the content, text or information contained within the body of this dictation should be directly addressed to the provider for clarification Admission and Anticipated Discharge Date Admission Date: December 14, 2022 Subjective Patient seen and examined at bedside. He is lying in the bed comfortably; not in any distress. Does not complain of any fever, chills, chest pain, shortness of breath or abdominal pain Review of Systems Review of Systems: All systems reviewed & are unremarkable except as noted in Subjective Physical Exam Physical Exam: Physical Exam: Vitals signs as noted above General Appearance:Moderately built and nourished, no apparent distress Head: normocephalic, Atraumatic Eyes: normal inspection, EOMI Neck: supple, Trachea midline Respiratory/Chest: Decreased breath sounds, CTA, No accessory muscle use Cardiovascular: S1, S2, + murmur Abdomen/GI:Soft, Non tender, Bowel sounds present Extremities/Musculoskeletal:normal inspection, 1+ edema Neurologic/Psych:AAOX3, grossly no focal neurological deficits Skin: normal color, warm Results & Data Results & Data Vital Signs (Past 12 Hours) Vital Signs Temp Pulse Pulse Resp BP Pulse Ox O2 Del Method 12/25/22 12:04 36.8 C 73 16 126/66 97 Room Air 12/25/22 08:21 36.7 C 63 16 150/75 H 97 Room Air 12/25/22 07:33 69 12/25/22 02:42 36.6 C 66 18 137/75 98 Room Air Laboratory Results Laboratory Results WBC 8.27 K/ul (4.8-10.8) 12/25/22 05:50 RBC 2.90 M/uL (4.70-6.10) L 12/25/22 05:50 Hgb 7.5 g/dl (14.0-18.0) L 12/25/22 05:50 Hct 24.9 % (42.0-52.0) L 12/25/22 05:50 MCV 85.9 fL (80.0-100.0) 12/25/22 05:50 MCH 25.9 pg (25.0-34.0) 12/25/22 05:50 MCHC 30.1 g/dL (32.0-36.0) L 12/25/22 05:50 RDW Std Deviation 48.0 fL (36.4-46.3) H 12/25/22 05:50 RDW Coeff of Robert 15.5 % (11.5-14.5) H 12/25/22 05:50 Plt Count 251 K/uL (130-400) 12/25/22 05:50 MPV 8.8 fL (9.4-12.4) L 12/25/22 05:50 Immature Gran % (Auto) 1.6 % 12/25/22 05:50 Neut % (Auto) 73.1 % 12/25/22 05:50 Lymph % (Auto) 17.3 % 12/25/22 05:50 Forrest % (Auto) 6.3 % 12/25/22 05:50 Eos % (Auto) 1.2 % 12/25/22 05:50 Baso % (Auto) 0.5 % 12/25/22 05:50 Neut # (Auto) 6.05 K/uL (1.40-6.50) 12/25/22 05:50 Lymph # (Auto) 1.43 K/uL (1.2-3.4) 12/25/22 05:50 Forrest # (Auto) 0.52 K/uL (0.11-0.59) 12/25/22 05:50 Eos # (Auto) 0.10 K/uL (0-0.50) 12/25/22 05:50 Baso # (Auto) 0.04 K/uL (0-0.2) 12/25/22 05:50 Immature Gran # (Auto) 0.13 K/uL (0.01-0.20) 12/25/22 05:50 Absolute Nucleated RBC 0.02 K/uL (0-0.12) 12/19/22 07:25 Nucleated RBC % (auto) 0.2 % 12/19/22 07:25 RBC Morphology Unremarkable 12/25/22 05:50 Polychromasia 1+ 12/24/22 07:36 PT 11.6 Seconds (9.0-12.0) 12/18/22 06:15 INR 1.1 (0.9-1.1) 12/18/22 06:15 APTT 31.3 Seconds (21.0-31.0) H 12/12/22 11:59 PTT Ratio 1.1 12/12/22 11:59 Sodium 142 mmol/L (136-145) 12/25/22 05:50 Potassium 4.2 mmol/L (3.5-5.1) 12/25/22 05:50 Chloride 112 mmol/L (98-107) H 12/25/22 05:50 Carbon Dioxide 26 mmol/L (21-32) 12/25/22 05:50 Anion Gap 4 (3-11) 12/25/22 05:50 BUN 34 mg/dl (6-23) H 12/25/22 05:50 Creatinine 1.44 mg/dl (0.6-1.4) H 12/25/22 05:50 Est Cr Clr Drug Dosing 60.8 ml/min 12/25/22 05:50 Est GFR ( Amer) 54.3 ml/min 12/25/22 05:50 Est GFR (Non-Af Amer) 46.8 ml/min 12/25/22 05:50 BUN/Creatinine Ratio 23.6 (10-20) H 12/25/22 05:50 Glucose 87 mg/dl (70-99(Fasting)) 12/25/22 05:50 Calcium 7.9 mg/dl (8.6-10.3) L 12/25/22 05:50 Iron 10 mcg/dl (35-175) L 12/24/22 07:36 Unsaturated IBC 224 mcg/dl (155-355) 12/24/22 07:36 Ferritin 48.6 ng/ml (8-388) 12/24/22 07:36 Total Bilirubin 0.6 mg/dl (0.2-1.0) 12/16/22 07:13 AST 12 U/L (13-39) L 12/16/22 07:13 ALT 14 U/L (7-52) 12/16/22 07:13 Alkaline Phosphatase 59 U/L (34-104) 12/16/22 07:13 Total Protein 5.6 gm/dl (6.0-8.3) L 12/16/22 07:13 Albumin 3.5 gm/dl (3.4-5.0) 12/16/22 07:13 Globulin 2.1 gm/dl (2.5-4.0) L 12/16/22 07:13 Albumin/Globulin Ratio 1.7 (0.9-2) 12/16/22 07:13 Urine Color Red 12/12/22 12:12 Urine Appearance Cloudy (Clear) A 12/12/22 12:12 Urine pH 6.5 (4.5-7.5) 12/12/22 12:12 Ur Specific Clyde 1.016 (1.000-1.030) 12/12/22 12:12 Urine Protein 3+ (Negative) H 12/12/22 12:12 Urine Glucose (UA) Negative (Negative) 12/12/22 12:12 Urine Ketones Negative (Negative) 12/12/22 12:12 Urine Blood 3+ (Negative) H 12/12/22 12:12 Urine Nitrite Positive (Negative) A 12/12/22 12:12 Urine Bilirubin 1+ (Negative) H 12/12/22 12:12 Urine Urobilinogen Negative (Negative) 12/12/22 12:12 Ur Leukocyte Esterase 2+ (Negative) H 12/12/22 12:12 Urine RBC >30 /hpf (0-4) H 12/12/22 12:12 Urine WBC >30 /hpf (0-5) H 12/12/22 12:12 Ur Epithelial Cells 5-10 /lpf (0-5) H 12/12/22 12:12 Urine Bacteria 1+ (Negative) H 12/12/22 12:12 Stl C. diff Tox B Gene (Neg) 12/17/22 20:50 SARS-CoV-2, RNA, NAAT NEGATIVE (NEGATIVE) 12/12/22 15:01 Blood Type A Positive 12/21/22 09:38 Blood Type Recheck A Positive 12/12/22 18:29 Antibody Screen NEGATIVE 12/21/22 09:38 Crossmatch See Detail 12/21/22 09:38 Impressions Abdomen/Pelvis CT 12/12/22 12:33 CT SCAN OF THE ABDOMEN AND PELVIS WITHOUT IV CONTRAST CLINICAL HISTORY: Dysuria. COMPARISON STUDY: Abdominal CT dated 12/02/2017. TECHNIQUE: CT scan of the abdomen and pelvis is performed from the lung bases to the proximal femora. Images are reviewed in the axial, sagittal, and coronal planes. IV contrast was not administered for this examination. A dose lowering technique was utilized adhering to the principles of ALARA. CT DOSE: 1479.16 mGy.cm FINDINGS: Lung bases: The heart is normal in size noting a small pericardial effusion. The lung bases are clear. There is a small hiatal hernia. Liver: The unenhanced liver is enlarged, measuring 18.6 cm in length. The liver demonstrates diffusely diminished attenuation indicating steatosis. Fatty sparing is seen adjacent to the gallbladder fossa. There is no intrahepatic biliary ductal dilatation. Gallbladder: Unremarkable. Spleen: Normal in size and attenuation. Pancreas: The unenhanced pancreas is grossly unremarkable. Adrenal glands: Unremarkable. Kidneys: The unenhanced kidneys demonstrate cortical atrophy and are without hydronephrosis. There is a punctate nonobstructing right renal calculus. No left renal calculi are identified and there is no ureteral stone. There is no evidence of contour deforming renal mass lesion. Abdominal vasculature: The abdominal aorta is normal in course and caliber noting moderate to advanced atherosclerotic calcification. There is ectasia of the hepatic artery which measures up to 14 mm in diameter. This is similar to previous. Bowel: There is mild sigmoid diverticulosis without CT evidence of acute diverticulitis. No bowel obstruction is identified. The appendix is not identified and reported surgically absent. Peritoneum: There is no intraperitoneal free air or abdominal ascites. There is a small fat-containing umbilical hernia. Lymphadenopathy: None. Pelvic viscera: The prostate gland is diminutive and heterogeneous, and contains metallic implants. The bladder is decompressed around a Devlin catheter. The bladder wall appears thickened comment with surrounding inflammation and foci of intramural gas. There is a large posterior bladder diverticulum which measures up to 5.6 cm. Hyperdense material within the bladder and the large bladder diverticulum likely represents blood clots. An additional small bladder diverticulum is seen on the right. Skeletal structures: The skeletal structures are osteopenic. There is moderate lumbosacral spondylosis. Degenerative change and partial fusion is seen in the sacroiliac joints. No lytic or blastic lesions are seen. 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 This is similar to previous Soft tissues: There is an approximately 10 x 7.5 x 5.5 cm ovoid minimally complex fluid collection overlying the greater trochanter of the left femur seen on axial image #427. IMPRESSION: 1. The bladder is decompressed around a Devlin catheter. The wall appears thickened and there is surrounding inflammation. Correlate with clinical findings and urinalysis for evidence of cystitis. 2. Hyperdense material is present within the bladder lumen as well as within a large bladder diverticulum. This likely represents blood clots. Again, this should be correlated with urinalysis. Consider nonemergent follow-up with urology to exclude the possibility of underlying bladder lesion. 3. There is a punctate nonobstructing right renal calculus. 4. Hepatomegaly and hepatic steatosis. 5. Sigmoid diverticulosis without CT evidence of acute diverticulitis. 6. There is an ovoid minimally complex fluid collection overlying the greater trochanter of the left proximal femur. This likely represents a seroma or hematoma. The sterility of this fluid cannot be assessed by imaging and clinical correlation will be required. 7. Additional findings as above. ACT 112: Negative or not required by law. Electronically signed by: Jluis Oh M.D. 12/12/2022 1:[address] 12/16/22 14:42 CT chest diagnostic wo con CT DOSE: 1103.45 mGy.cm HISTORY: COPD. Shortness of breath. TECHNIQUE: Multiaxial CT images of the chest were performed without contrast. A dose lowering technique was utilized adhering to the principles of ALARA. COMPARISON: Chest CTA 05/22/2014. FINDINGS: The central airways are patent. No pneumothorax. No pleural effusions. Mild emphysema. There is a punctate calcified granuloma seen within the base of the left lower lobe. A few small linear densities within the right lung pos teriorly. This may represent subsegmental atelectasis are scarring. No focal lung consolidations to suggest pneumonia. No evidence for pulmonary edema. No suspicious lytic or blastic osseous lesions. Limited views of the upper abdomen demonstrate hepatic steatosis and a normal spleen. The punctate stone within the right kidney. The adrenal glands are unremarkable. There is a trace pericardial effusion. The heart is normal in size. Normal esophagus. No mediastinal or hilar lymphadenopathy. Normal thyroid gland. Moderate calcified plaque within the coronary arteries and aortic valve. There is mild calcified plaque within the thoracic aorta. There is mild aneurysmal dilatation of the ascending thoracic aorta measuring up to 4.3 cm in diameter. IMPRESSION: 1. No focal lung consolidations to suggest pneumonia. 2. Mild emphysema. 3. Hepatic steatosis. 4. Right-sided nephrolithiasis. 5. Mild aneurysmal dilatation of the ascending thoracic aorta measuring up to 4.3 cm in diameter. ACT 112: Negative or not required by law. Electronically signed by: Des Harrison M.D. 12/16/2022 4:34 PM Chest X-Ray 12/17/22 16:00 XR chest 1V portable CLINICAL HISTORY: post thoracentesis COMPARISON STUDY: Chest CT December 16, 2022. FINDINGS: There is no pneumothorax. No pleural effusion is identified. Minimal left basilar opacity favors atelectasis. There is no evidence for pulmonary edema. Cardiomediastinal silhouette is stable. IMPRESSION: No acute cardiopulmonary findings. No pneumothorax. ACT 112: Negative or not required by law. Electronically signed by: Boris Keys M.D. 12/17/2022 4:36 PM Renal Ultrasound 12/22/22 16:22 US renal/blad retro comp CLINICAL HISTORY: violeta TECHNIQUE: Multiple sonographic real-time images of the kidneys and bladder were obtained. COMPARISON: Comparison is made to renal ultrasound 12/07/2017 FINDINGS: The right kidney measures 12.5 cm in length, and the left kidney measures 12.5 cm in length. The right kidney is normal in size, contour, cortical thickness, and echogenicity. No hydronephrosis is identified. No renal lesion is identified. The left kidney is normal in size, contour, cortical thickness and echogenicity. No hydronephrosis is identified. No renal lesion is identified. Complex material is seen in the bladder without vascular flow. The bladder wall appears hyperemic. No large intraluminal mass is seen. IMPRESSION: Complex material in the bladder is nonspecific but may represent chronic blood clot, clinical correlation and possible cystoscopy is recommended. ACT 112: Negative or not required by law. Electronically signed by: Alonso Fay M.D. 12/22/2022 9:30 PM (1) Hematuria Hematuria type: gross Qualified Code(s): R31.0 - Gross hematuria
[2022-12-25] MEDS: LIDOCAINE 2% JELLY 5 ML TUBE EXT SCH ×2 (16:08→23:45)
[2022-12-25] MEDS: PHENAZOPYRIDINE HCL 100 MG TAB PO PRN (16:58)
[2022-12-25] MEDS: oxyCODONE HCL IR 5 MG TAB (IMMEDIATE RELEASE) PO PRN (17:02)
[2022-12-25] MEDS: DONEPEZIL HCL 10 MG TAB PO SCH (22:29)
[2022-12-25] MEDS: CHOLECALCIFEROL 5,000 UNITS 125 MCG TAB PO SCH (22:29)
[2022-12-25] MEDS: UMECLIDINIUM/VILANTEROL 62.5/25MCG 7 PUFFS/INHALER INH SCH (22:30)
[2022-12-25] MEDS: FLUTICASONE FUROATE 200MCG 14 PUFFS/INHALER INH SCH (22:30)
[2022-12-26] MEDS: ACETAMINOPHEN 325 MG TAB PO PRN ×2 (06:19→23:30)
[2022-12-26 07:48] LABS: Basophils # (auto) 0.03 K/uL (0-0.2); Basophils % (auto) 0.4 %; Eosinophils # (auto) 0.13 K/uL (0-0.50); Eosinophils % (auto) 1.6 %; Hematocrit (blood only) 24.4 % (42.0-52.0); Hemoglobin 7.6 g/dl (14.0-18.0); Immature Granulocytes % (auto) 1.2 %; Lymphocytes # (auto) 1.35 K/uL (1.2-3.4); Lymphocytes % (auto) 16.2 %; Mean Corpuscular Hemoglobin 26.1 pg (25.0-34.0); Mean Corpuscular Hgb Conc 31.1 g/dL (32.0-36.0); Mean Corpuscular Volume 83.8 fL (80.0-100.0); Mean Platelet Volume 9.1 fL (9.4-12.4); Monocytes # (auto) 0.56 K/uL (0.11-0.59); Monocytes % (auto) 6.7 %; Neutrophils # (auto) 6.17 K/uL (1.40-6.50); Neutrophils % (auto) 73.9 %; Platelet Count 287 K/uL (130-400); RDW Coefficient of Variation 15.6 % (11.5-14.5); RDW Standard Deviation 47.3 fL (36.4-46.3); Red Blood Count 2.91 M/uL (4.70-6.10); White Blood Count 8.34 K/ul (4.8-10.8)
[2022-12-26 08:01] LABS: BUN Creatinine Ratio 21.6 (10-20); Calcium 8.3 mg/dl (8.6-10.3); Est GFR (African American) 56.7 ml/min; Est GFR (Non-African American) 48.9 ml/min; Potassium 3.8 mmol/L (3.5-5.1)
[2022-12-26 08:34] LABS: Polychromasia 1+
[2022-12-26] MEDS: MULTIVITAMIN TAB PO SCH (08:35)
[2022-12-26] MEDS: FLUTICASONE PROPIONATE NA SPR 16 GM BTL SCH (08:35)
[2022-12-26] MEDS: MONTELUKAST SODIUM 10 MG TABLET PO SCH (08:36)
[2022-12-26] MEDS: TOCOPHERYL, DL-ALPHA 400 UNITS 180 MG CAP PO SCH (08:36)
[2022-12-26] MEDS: ADVANCED PROBIOTIC 1250 MG CAPSULE PO SCH (08:36)
[2022-12-26] MEDS: ASCORBIC ACID 500 MG TAB PO SCH (08:36)
[2022-12-26] MEDS: HYDROCORTISONE 10 MG TAB PO SCH ×3 (09:22→17:51)
[2022-12-26] MEDS ORDERED: IRON SUCROSE 200 MG in 0.9 % SODIUM CHLORIDE 100 ML IV ONE (10:45)
--- NOTE | 2022-12-26 11:40 | Hospitalist Progress Note ---
Date of Service December 26, 2022 Assessment & Plan (1) Hematuria: Plan: H/O prostate cancer about 5 years ago and status post 44 radiation treatment and 4 infusion treatment. He has been complaining of hematuria for the last 3 months. Was seen by urology clinic on and the postvoid residual was 48 mL- apparent UA at that time did not show any infection. 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 Cystoscopy done in August 2022 with urethral dilation and fulguration; was being planned for hyperbaric oxygen therapy as outpatient Brought to the hospital with shortness of breath. Found to be anemic --CT ABD:The bladder is decompressed around a Devlin catheter. The wall appears thickened and there is surrounding inflammation. Correlate with clinical findings and urinalysis for evidence of cystitis. Hyperdense material is present within the bladder lumen as well as within a large bladder diverticulum. This likely represents blood clots. Again, this should be correlated with urinalysis. Consider nonemergent follow-up with urology to exclude the possibility of underlying bladder lesion. There is a punctate nonobstructing right renal calculus. Hepatomegaly and hepatic steatosis. Sigmoid diverticulosis without CT evidence of acute diverticulitis. There is an ovoid minimally complex fluid collection overlying the greater trochanter of the left proximal femur. This likely represents a seroma or hematoma. The sterility of this fluid cannot be assessed by imaging and clinical correlation will be required. -- Urine culture negative for UTI Patient underwent continuous bladder irrigation earlier in the hospitalization as per urology. Transfused 3 units of packed RBC. Devlin was removed on December 22, 2022. patient has been incontinent since Devlin removal; still has some gross hematuria. Renal ultrasound from 12/22 results reviewed; complex material in the bladder seen likely chronic blood clot Discussed with urology regarding the ultrasound findings; recommend conservative management. No plans for repeat cystoscopy. Plan for discharge to rehab, then home. Plan for outpatient hyperbaric oxygen treatment after discharging home Peer to peer done on 12/26; discussed regarding patient condition over 15 minutes. Advocated that patient will benefit from inpatient rehab stay as he has good rehab potential and needs medical supervision. However, it was denied. Case management was informed. Will need to look for SNF placement. Symptomatic anemia Acute blood loss anemia due to hematuria S/P 3 unit PRBCs Monitor H&H and transfuse PRBCs as needed Hemoglobin 7.6 today Iron studies personally reviewed; consistent with iron deficiency anemia. Ferritin of 48 On IV iron day 3 VIOLETA on CKD III, likely prerenal Creatinine bumped up to 3.14 during the hospitalization downtrended to baseline with iv hydration Renal usg as above. Diarrhea Likely secondary to IV antibiotics Check stool for C. difficile if recurrence of diarrhea Received empiric IV antibiotics for cystitis H/O Pulmonary embolism/DVT Coumadin discontinued due to gross hematuria/anemia Discussed with Dr. Gan on 12/18/22: Trial of Lovenox 30 mg SQ if okay with urology. If continues to bleed requiring blood transfusions, plan to hold off on further anticoagulation until hyperbaric oxygen therapy. Failed trial off Lovenox SQ--- previous hospitalist discussed risks Vs benefits with anticoagulation with family/patient. Plan to discontinue anticoagulation for now given risks overweigh benefits. Patient and family agrees with the plan. Aortic stenosis: --ECHO-Echo was done on of this month showed normal LV size and systolic function with EF of 60 to 65%, no regional wall motion abnormalities, moderate c oncentric LVH, mild aortic stenosis, mild mitral regurgitation, mildly dilated ascending aorta of 4.4 cm, small pericardial effusion without tamponade, no significant change compared with prior study of 06/16/2001 COPD (chronic obstructive pulmonary disease): Has COPD on trilogy Follows with Research Interviewer as outpatient No acute exacerbation Obstructive sleep apnea on trilogy CKD Monitor renal function DVT Px: SCDs Re: Hematuria Code Status Full Code Time spent evaluating patient, direct bedside care, chart review, placing orders, interpretation of diagnostic studies, discussion with consultants, patient, and family members, as well as other required patient management activities is 60 minutes. Please note the above document was generated using voice recognition software. It may contain grammatical, syntax or spelling errors. Any formal questions or concerns about the content, text or information contained within the body of this dictation should be directly addressed to the provider for clarification Admission and Anticipated Discharge Date Admission Date: December 14, 2022 Subjective Patient seen and examined at bedside. He reports not been able to sleep overnight due to disturbances needing bladder scan. Review of Systems Review of Systems: All systems reviewed & are unremarkable except as noted in Subjective Physical Exam Physical Exam: Physical Exam: Vitals signs as noted above General Appearance:Moderately built and nourished, no apparent distress Head: normocephalic, Atraumatic Eyes: normal inspection, EOMI Neck: supple, Trachea midline Respiratory/Chest: Decreased breath sounds, CTA, No accessory muscle use Cardiovascular: S1, S2, + murmur Abdomen/GI:Soft, Non tender, Bowel sounds present Extremities/Musculoskeletal:normal inspection, 1+ edema Neurologic/Psych:AAOX3, grossly no focal neurological deficits Skin: normal color, warm Results & Data Results & Data Vital Signs (Past 12 Hours) Vital Signs Temp Pulse Pulse Resp BP BP Pulse Ox 12/26/22 11:16 36.7 C 83 18 123/70 95 12/26/22 08:00 77 12/26/22 07:52 36.6 C 78 18 116/74 96 12/26/22 04:00 36.8 C 76 18 120/65 94 12/26/22 01:16 78 O2 Del Method 12/26/22 11:16 Room Air 12/26/22 08:00 12/26/22 07:52 Room Air 12/26/22 04:00 Room Air 12/26/22 01:16 Laboratory Results Laboratory Results WBC 8.34 K/ul (4.8-10.8) 12/26/22 06:54 RBC 2.91 M/uL (4.70-6.10) L 12/26/22 06:54 Hgb 7.6 g/dl (14.0-18.0) L 12/26/22 06:54 Hct 24.4 % (42.0-52.0) L 12/26/22 06:54 MCV 83.8 fL (80.0-100.0) 12/26/22 06:54 MCH 26.1 pg (25.0-34.0) 12/26/22 06:54 MCHC 31.1 g/dL (32.0-36.0) L 12/26/22 06:54 RDW Std Deviation 47.3 fL (36.4-46.3) H 12/26/22 06:54 RDW Coeff of Robert 15.6 % (11.5-14.5) H 12/26/22 06:54 Plt Count 287 K/uL (130-400) 12/26/22 06:54 MPV 9.1 fL (9.4-12.4) L 12/26/22 06:54 Immature Gran % (Auto) 1.2 % 12/26/22 06:54 Neut % (Auto) 73.9 % 12/26/22 06:54 Lymph % (Auto) 16.2 % 12/26/22 06:54 [place] % (Auto) 6.7 % 12/26/22 06:54 Eos % (Auto) 1.6 % 12/26/22 06:54 Baso % (Auto) 0.4 % 12/26/22 06:54 Neut # (Auto) 6.17 K/uL (1.40-6.50) 12/26/22 06:54 Lymph # (Auto) 1.35 K/uL (1.2-3.4) 12/26/22 06:54 [place] # (Auto) 0.56 K/uL (0.11-0.59) 12/26/22 06:54 Eos # (Auto) 0.13 K/uL (0-0.50) 12/26/22 06:54 Baso # (Auto) 0.03 K/uL (0-0.2) 12/26/22 06:54 Immature Gran # (Auto) 0.10 K/uL (0.01-0.20) 12/26/22 06:54 Absolute Nucleated RBC 0.02 K/uL (0-0.12) 12/19/22 07:25 Nucleated RBC % (auto) 0.2 % 12/19/22 07:25 RBC Morphology Unremarkable 12/25/22 05:50 Polychromasia 1+ 12/26/22 06:54 PT 11.6 Seconds (9.0-12.0) 12/18/22 06:15 INR 1.1 (0.9-1.1) 12/18/22 06:15 APTT 31.3 Seconds (21.0-31.0) H 12/12/22 11:59 PTT Ratio 1.1 12/12/22 11:59 Sodium 142 mmol/L (136-145) 12/26/22 06:54 Potassium 3.8 mmol/L (3.5-5.1) 12/26/22 06:54 Chloride 110 mmol/L (98-107) H 12/26/22 06:54 Carbon Dioxide 25 mmol/L (21-32) 12/26/22 06:54 Anion Gap 7 (3-11) 12/26/22 06:54 BUN 30 mg/dl (6-23) H 12/26/22 06:54 Creatinine 1.39 mg/dl (0.6-1.4) 12/26/22 06:54 Est Cr Clr Drug Dosing 63.0 ml/min 12/26/22 06:54 Est GFR ( Amer) 56.7 ml/min 12/26/22 06:54 Est GFR (Non-Af Amer) 48.9 ml/min 12/26/22 06:54 BUN/Creatinine Ratio 21.6 (10-20) H 12/26/22 06:54 Glucose 92 mg/dl (70-99(Fasting)) 12/26/22 06:54 Calcium 8.3 mg/dl (8.6-10.3) L 12/26/22 06:54 Iron 10 mcg/dl (35-175) L 12/24/22 07:36 Unsaturated IBC 224 mcg/dl (155-355) 12/24/22 07:36 Ferritin 48.6 ng/ml (8-388) 12/24/22 07:36 Total Bilirubin 0.6 mg/dl (0.2-1.0) 12/16/22 07:13 AST 12 U/L (13-39) L 12/16/22 07:13 ALT 14 U/L (7-52) 12/16/22 07:13 Alkaline Phosphatase 59 U/L (34-104) 12/16/22 07:13 Total Protein 5.6 gm/dl (6.0-8.3) L 12/16/22 07:13 Albumin 3.5 gm/dl (3.4-5.0) 12/16/22 07:13 Globulin 2.1 gm/dl (2.5-4.0) L 12/16/22 07:13 Albumin/Globulin Ratio 1.7 (0.9-2) 12/16/22 07:13 Urine Color Red 12/12/22 12:12 Urine Appearance Cloudy (Clear) A 12/12/22 12:12 Urine pH 6.5 (4.5-7.5) 12/12/22 12:12 Ur Specific [place] 1.016 (1.000-1.030) 12/12/22 12:12 Urine Protein 3+ (Negative) H 12/12/22 12:12 Urine Glucose (UA) Negative (Negative) 12/12/22 12:12 Urine Ketones Negative (Negative) 12/12/22 12:12 Urine Blood 3+ (Negative) H 12/12/22 12:12 Urine Nitrite Positive (Negative) A 12/12/22 12:12 Urine Bilirubin 1+ (Negative) H 12/12/22 12:12 Urine Urobilinogen Negative (Negative) 12/12/22 12:12 Ur Leukocyte Esterase 2+ (Negative) H 12/12/22 12:12 Urine RBC >30 /hpf (0-4) H 12/12/22 12:12 Urine WBC >30 /hpf (0-5) H 12/12/22 12:12 Ur Epithelial Cells 5-10 /lpf (0-5) H 12/12/22 12:12 Urine Bacteria 1+ (Negative) H 12/12/22 12:12 Stl C. diff Tox B Gene (Neg) 12/17/22 20:50 SARS-CoV-2, RNA, NAAT NEGATIVE (NEGATIVE) 12/12/22 15:01 Blood Type A Positive 12/21/22 09:38 Blood Type Recheck A Positive 12/12/22 18:29 Antibody Screen NEGATIVE 12/21/22 09:38 Crossmatch See Detail 12/21/22 09:38 Impressions Abdomen/Pelvis CT 12/12/22 12:33 CT SCAN OF THE ABDOMEN AND PELVIS WITHOUT IV CONTRAST CLINICAL HISTORY: Dysuria. COMPARISON STUDY: Abdominal CT dated 12/02/2017. TECHNIQUE: CT scan of the abdomen and pelvis is performed from the lung bases to the proximal femora. Images are reviewed in the axial, sagittal, and coronal planes. IV contrast was not administered for this examination. A dose lowering technique was utilized adhering to the principles of ALARA. CT DOSE: 1479.16 mGy.cm FINDINGS: Lung bases: The heart is normal in size noting a small pericardial effusion. The lung bases are clear. There is a small hiatal hernia. Liver: The unenhanced liver is enlarged, measuring 18.6 cm in length. The liver demonstrates diffusely diminished attenuation indicating steatosis. Fatty sparing is seen adjacent to the gallbladder fossa. There is no intrahepatic biliary ductal dilatation. Gallbladder: Unremarkable. Spleen: Normal in size and attenuation. Pancreas: The unenhanced pancreas is grossly unremarkable. Adrenal glands: Unremarkable. Kidneys: The unenhanced kidneys demonstrate cortical atrophy and are without hydronephrosis. There is a punctate nonobstructing right renal calculus. No left renal calculi are identified and there is no ureteral stone. There is no evidence of contour deforming renal mass lesion. Abdominal vasculature: The abdominal aorta is normal in course and caliber noting moderate to advanced atherosclerotic calcification. There is ectasia of the hepatic artery which measures up to 14 mm in diameter. This is similar to previous. Bowel: There is mild sigmoid diverticulosis without CT evidence of acute diverticulitis. No bowel obstruction is identified. The appendix is not identified and reported surgically absent. Peritoneum: There is no intraperitoneal free air or abdominal ascites. There is a small fat-containing umbilical hernia. Lymphadenopathy: None. Pelvic viscera: The prostate gland is diminutive and heterogeneous, and contains metallic implants. The bladder is decompressed around a Devlin catheter. The bladder wall appears thickened comment with surrounding inflammation and foci of intramural gas. There is a large posterior bladder diverticulum which measures up to 5.6 cm. Hyperdense material within the bladder and the large bladder diverticulum likely represents blood clots. An additional small bladder diverticulum is seen on the right. Skeletal structures: The skeletal structures are osteopenic. There is moderate lumbosacral spondylosis. Degenerative change and partial fusion is seen in the sacroiliac joints. No lytic or blastic lesions are seen. 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 This is similar to previous Soft tissues: There is an approximately 10 x 7.5 x 5.5 cm ovoid minimally complex fluid collection overlying the greater trochanter of the left femur seen on axial image #427. IMPRESSION: 1. The bladder is decompressed around a Devlin catheter. The wall appears thickened and there is surrounding inflammation. Correlate with clinical findings and urinalysis for evidence of cystitis. 2. Hyperdense material is present within the bladder lumen as well as within a large bladder diverticulum. This likely represents blood clots. Again, this should be correlated with urinalysis. Consider nonemergent follow-up with urology to exclude the possibility of underlying bladder lesion. 3. There is a punctate nonobstructing right renal calculus. 4. Hepatomegaly and hepatic steatosis. 5. Sigmoid diverticulosis without CT evidence of acute diverticulitis. 6. There is an ovoid minimally complex fluid collection overlying the greater trochanter of the left proximal femur. This likely represents a seroma or hematoma. The sterility of this fluid cannot be assessed by imaging and clinical correlation will be required. 7. Additional findings as above. ACT 112: Negative or not required by law. Electronically signed by: Jluis Oh M.D. 12/12/2022 1:[address] 12/16/22 14:42 CT chest diagnostic wo con CT DOSE: 1103.45 mGy.cm HISTORY: COPD. Shortness of breath. TECHNIQUE: Multiaxial CT images of the chest were performed without contrast. A dose lowering technique was utilized adhering to the principles of ALARA. COMPARISON: Chest CTA 05/22/2014. FINDINGS: The central airways are patent. No pneumothorax. No pleural effusions. Mild emphysema. There is a punctate calcified granuloma seen within the base of the left lower lobe. A few small linear densities within the right lung posteriorly. This may represent subsegmental atelectasis are scarring. No focal lung consolidations to suggest pneumonia. No evidence for pulmonary edema. No suspicious lytic or blastic osseous lesions. Limited views of the upper abdomen demonstrate hepatic steatosis and a normal spleen. The punctate stone within the right kidney. The adrenal glands are unremarkable. There is a trace pericardial effusion. The heart is normal in size. Normal esophagus. No mediastinal or hilar lymphadenopathy. Normal thyroid gland. Moderate calcified plaque within the coronary arteries and aortic valve. There is mild calcified plaque within the thoracic aorta. There is mild aneurysmal dilatation of the ascending thoracic aorta measuring up to 4.3 cm in diameter. IMPRESSION: 1. No focal lung consolidations to suggest pneumonia. 2. Mild emphysema. 3. Hepatic steatosis. 4. Right-sided nephrolithiasis. 5. Mild aneurysmal dilatation of the ascending thoracic aorta measuring up to 4.3 cm in diameter. ACT 112: Negative or not required by law. Electronically signed by: Des Harrison M.D. 12/16/2022 4:34 PM Chest X-Ray 12/17/22 16:00 XR chest 1V portable CLINICAL HISTORY: post thoracentesis COMPARISON STUDY: Chest CT December 16, 2022. FINDINGS: There is no pneumothorax. No pleural effusion is identified. Minimal left basilar opacity favors atelectasis. There is no evidence for pulmonary edema. Cardiomediastinal silhouette is stable. IMPRESSION: No acute cardiopulmonary findings. No pneumothorax. ACT 112: Negative or not required by law. Electronically signed by: Boris Keys M.D. 12/17/2022 4:36 PM Renal Ultrasound 12/22/22 16:22 US renal/blad retro comp CLINICAL HISTORY: violeta TECHNIQUE: Multiple sonographic real-time images of the kidneys and bladder were obtained. COMPARISON: Comparison is made to renal ultrasound 12/07/2017 FINDINGS: The right kidney measures 12.5 cm in length, and the left kidney measures 12.5 cm in length. The right kidney is normal in size, contour, cortical thickness, and echogenicity. No hydronephrosis is identified. No renal lesion is identified. The left kidney is normal in size, contour, cortical thickness and echogenicity. No hydronephrosis is identified. No renal lesion is identified. Complex material is seen in the bladder without vascular flow. The bladder wall appears hyperemic. No large intraluminal mass is seen. IMPRESSION: Complex material in the bladder is nonspecific but may represent chronic blood clot, clinical correlation and possible cystoscopy is recommended. ACT 112: Negative or not required by law. Electronically signed by: Alonso Fay M.D. 12/22/2022 9:30 PM (1) Hematuria Hematuria type: gross Qualified Code(s): R31.0 - Gross hematuria
--- NOTE | 2022-12-26 18:32 | Ultrasound Report ---
US venous doppler LE BI CLINICAL HISTORY: Concern for DVT TECHNIQUE: Right lower extremity real-time compression venous ultrasound with Color Doppler imaging. Utilizing real-time ultrasonic imaging multiple real time high-resolution ultrasonic images with comp ression and noncompression maneuvers of the deep venous system in addition to color doppler imaging w ere performed from the common femoral vein through the proximal calf veins. COMPARISON: None available at the time of this dictation. FINDINGS/IMPRESSION: There is a deep venous thrombus extending from the common femoral vein, through the popliteal vein as well as the calf vessels, nearly occlusive in some areas. Pelvis is also seen to extend into the gre at saphenous vein. ACT 112: Negative or not required by law. Electronically signed by: Alonso Fay M.D. 12/26/2022 6:31 PM
--- NOTE | 2022-12-26 19:47 | Communication Note ---
Date of Service: December 26, 2022 Notified by RN of abnormal LE venous Doppler results. There is a deep venous thrombus extending from the common femoral vein, through the popliteal vein as well as the calf vessels, nearly occlusive in some areas. Pelvis is also seen to extend into the great saphenous vein. AP Recurrent DVT hx of PE DVT, anticoagulation currently on hold due to hematuria Past history IVC filter placement/removal as per records DC SCDs to prevent clot dislodgment. Vascular surgery consult Re: IVC filter placement, contraindication to anticoagulation for new clot Case discussed with Dr. Calderon who recommends n.p.o. status 12/28 (12 AM) if patient amenable to procedure. Ultrasound findings and plan of care discussed with patient at bedside who will convey information to .
[2022-12-26] MEDS: DONEPEZIL HCL 10 MG TAB PO SCH (21:29)
[2022-12-26] MEDS: CHOLECALCIFEROL 5,000 UNITS 125 MCG TAB PO SCH (21:29)
[2022-12-26] MEDS: FLUTICASONE FUROATE 200MCG 14 PUFFS/INHALER INH SCH (21:30)
[2022-12-26] MEDS: UMECLIDINIUM/VILANTEROL 62.5/25MCG 7 PUFFS/INHALER INH SCH (21:30)
[2022-12-26] MEDS: LIDOCAINE 2% JELLY 5 ML TUBE EXT SCH (23:31)
[2022-12-27] MEDS ORDERED: Heparin IV Adult Wt-Based Standard *NO* Bolus Protocol IV SCH (08:04)
[2022-12-27 08:36] LABS: Basophils # (auto) 0.04 K/uL (0-0.2); Basophils % (auto) 0.5 %; Eosinophils # (auto) 0.11 K/uL (0-0.50); Eosinophils % (auto) 1.5 %; Hematocrit (blood only) 27.1 % (42.0-52.0); Hemoglobin 8.2 g/dl (14.0-18.0); Immature Granulocytes # (auto) 0.07 K/uL (0.01-0.20); Lymphocytes # (auto) 1.31 K/uL (1.2-3.4); Mean Corpuscular Hemoglobin 26.2 pg (25.0-34.0); Mean Corpuscular Hgb Conc 30.3 g/dL (32.0-36.0); Mean Corpuscular Volume 86.6 fL (80.0-100.0); Mean Platelet Volume 8.6 fL (9.4-12.4); Monocytes # (auto) 0.45 K/uL (0.11-0.59); Monocytes % (auto) 6.2 %; Neutrophils # (auto) 5.31 K/uL (1.40-6.50); Neutrophils % (auto) 72.8 %; Platelet Count 295 K/uL (130-400); RDW Coefficient of Variation 16.1 % (11.5-14.5); RDW Standard Deviation 48.8 fL (36.4-46.3); Red Blood Count 3.13 M/uL (4.70-6.10); White Blood Count 7.29 K/ul (4.8-10.8)
[2022-12-27 08:44] LABS: Calcium 8.6 mg/dl (8.6-10.3); Creatinine Clr Calc Pharmacy 62.4 ml/min; Est GFR (African American) 56.2 ml/min; Est GFR (Non-African American) 48.5 ml/min; Potassium 4.2 mmol/L (3.5-5.1)
[2022-12-27] MEDS: MULTIVITAMIN TAB PO SCH (08:47)
[2022-12-27] MEDS: PHENAZOPYRIDINE HCL 100 MG TAB PO PRN (08:48)
[2022-12-27] MEDS: ADVANCED PROBIOTIC 1250 MG CAPSULE PO SCH (08:48)
[2022-12-27] MEDS: FLUTICASONE PROPIONATE NA SPR 16 GM BTL SCH (08:48)
[2022-12-27] MEDS: MONTELUKAST SODIUM 10 MG TABLET PO SCH (08:48)
[2022-12-27] MEDS: TOCOPHERYL, DL-ALPHA 400 UNITS 180 MG CAP PO SCH (08:48)
[2022-12-27] MEDS: HYDROCORTISONE 10 MG TAB PO SCH ×2 (08:48→18:02)
[2022-12-27 09:03] LABS: INR 1.1 (0.9-1.1); Partial Thromboplastin Time 28.3 Seconds (21.0-31.0); Prothrombin Time 11.9 Seconds (9.0-12.0)
[2022-12-27] MEDS: HEPARIN SODIUM/DEXTROSE 25,000 UNITS/500 ML BAG IV SCH ×2 (09:15→23:51)
[2022-12-27] MEDS: ASCORBIC ACID 500 MG TAB PO SCH (12:16)
--- NOTE | 2022-12-27 13:16 | Hospitalist Progress Note ---
Date of Service December 27, 2022 Assessment & Plan (1) Hematuria: Plan: H/O prostate cancer about 5 years ago and status post 44 radiation treatment and 4 infusion treatment. He has been complaining of hematuria for the last 3 months. Was seen by urology clinic on and the postvoid residual was 48 mL- apparent UA at that time did not show any infection. 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 Cystoscopy done in August 2022 with urethral dilation and fulguration; was being planned for hyperbaric oxygen therapy as outpatient Brought to the hospital with shortness of breath. Found to be anemic --CT ABD:The bladder is decompressed around a Devlin catheter. The wall appears thickened and there is surrounding inflammation. Correlate with clinical findings and urinalysis for evidence of cystitis. Hyperdense material is present within the bladder lumen as well as within a large bladder diverticulum. This likely represents blood clots. Again, this should be correlated with urinalysis. Consider nonemergent follow-up with urology to exclude the possibility of underlying bladder lesion. There is a punctate nonobstructing right renal calculus. Hepatomegaly and hepatic steatosis. Sigmoid diverticulosis without CT evidence of acute diverticulitis. There is an ovoid minimally complex fluid collection overlying the greater trochanter of the left proximal femur. This likely represents a seroma or hematoma. The sterility of this fluid cannot be assessed by imaging and clinical correlation will be required. -- Urine culture negative for UTI Patient underwent continuous bladder irrigation earlier in the hospitalization as per urology. Transfused 3 units of packed RBC. Devlin was removed on December 22, 2022. patient has been incontinent since Devlin removal; still has some gross hematuria. Renal ultrasound from 12/22 results reviewed; complex material in the bladder seen likely chronic blood clot Discussed with urology regarding the ultrasound findings; recommend conservative management. No plans for repeat cystoscopy. Plan for discharge to rehab, then home. Plan for outpatient hyperbaric oxygen treatment after discharging home Peer to peer done on 12/26; discussed regarding patient condition over 15 minutes. Advocated that patient will benefit from inpatient rehab stay as he has good rehab potential and needs medical supervision. However, it was denied. Case management was informed. Will need to look for SNF placement. Acute DVT of right lower leg Patient has a history of DVT/PE in the past. He was on Coumadin prior to admission which was stopped due to gross hematuria/anemia. Discussion was done by previous hospitalist with Dr. Gore on 12/18/2022; trial of Lovenox 30 mg subcu was done. However, he continued to have hematuria. It was discontinued after discussion with the family and the patient. Venous duplex done on 12/26/2022shows concern for DVT extending from common femoral vein through popliteal vein as well as calf vessels. Discussed with Dr. Calderon from vascular surgery over the phone today. We will place him on heparin drip for the time being due to the high risks of PE. Possible IVC filter placement tomorrow AM. Symptomatic anemia Acute blood loss anemia due to hematuria S/P 3 unit PRBCs Monitor H&H and transfuse PRBCs as needed Hemoglobin stable Iron studies personally reviewed; consistent with iron deficiency anemia. Ferritin of 48 On IV iron day 4 VIOLETA on CKD III, likely prerenalresolved Creatinine bumped up to 3.14 during the hospitalization downtrended to baseline with iv hydration Renal usg as above. Diarrhea Likely secondary to IV antibiotics Check stool for C. difficile if recurrence of diarrhea Received empiric IV antibiotics for cystitis Aortic stenosis: --ECHO-Echo was done on of this month showed normal LV size and systolic function with EF of 60 to 65%, no regional wall motion abnormalities, moderate concentric LVH, mild aortic stenosis, mild mitral regurgitation, mildly dilated ascending aorta of 4.4 cm, small pericardial effusion without tamponade, no significant change compared with prior study of 06/16/2001 COPD (chronic obstructive pulmonary disease): Has COPD on trilogy Follows with [facility] as outpatient No acute exacerbation Obstructive sleep apnea on trilogy CKD Monitor renal function DVT Px: On heparin drip. Code Status Full Code Time spent evaluating patient, direct bedside care, chart review, placing orders, interpretation of diagnostic studies, discussion with consultants, patient, and family members, as well as other required patient management activities is 60 minutes. Please note the above document was generated using voice recognition software. It may contain grammatical, syntax or spelling errors. Any formal questions or concerns about the content, text or information contained within the body of this dictation should be directly addressed to the provider for clarification Admission and Anticipated Discharge Date Admission Date: December 14, 2022 Subjective Overnight, venous duplex showed DVT extending from common femoral vein through to the popliteal vein as well as calf vessels. Discussion was done with vascular surgery; plan for possible IVC filter on Wednesday. Patient seen and examined at bedside. He is lying in the bed comfortably; not in any distress. Review of Systems Review of Systems: All systems reviewed & are unremarkable except as noted in Subjective Physical Exam Physical Exam: Physical Exam: Vitals signs as noted above General Appearance:Moderately built and nourished, no apparent distress Head: normocephalic, Atraumatic Eyes: normal inspection, EOMI Neck: supple, Trachea midline Respiratory/Chest: Decreased breath sounds, CTA, No accessory muscle use Cardiovascular: S1, S2, + murmur Abdomen/GI:Soft, Non tender, Bowel sounds present Extremities/Musculoskeletal:normal inspection, 1+ edema. Right leg swelling greater than left. Neurologic/Psych:AAOX3, grossly no focal neurological deficits Skin: normal color, warm Results & Data Results & Data Vital Signs (Past 12 Hours) Vital Signs Temp Pulse Resp BP BP Pulse Ox O2 Del Method 12/27/22 11:32 36.7 C 79 18 125/68 96 Room Air 12/27/22 07:34 36.4 C L 77 18 138/77 97 Room Air 12/27/22 04:00 36.4 C L 68 18 133/77 97 Room Air Laboratory Results Laboratory Results WBC 7.29 K/ul (4.8-10.8) 12/27/22 08:10 RBC 3.13 M/uL (4.70-6.10) L 12/27/22 08:10 Hgb 8.2 g/dl (14.0-18.0) L 12/27/22 08:10 Hct 27.1 % (42.0-52.0) L 12/27/22 08:10 MCV 86.6 fL (80.0-100.0) 12/27/22 08:10 MCH 26.2 pg (25.0-34.0) 12/27/22 08:10 MCHC 30.3 g/dL (32.0-36.0) L 12/27/22 08:10 RDW Std Deviation 48.8 fL (36.4-46.3) H 12/27/22 08:10 RDW Coeff of Robert 16.1 % (11.5-14.5) H 12/27/22 08:10 Plt Count 295 K/uL (130-400) 12/27/22 08:10 MPV 8.6 fL (9.4-12.4) L 12/27/22 08:10 Immature Gran % (Auto) 1.0 % 12/27/22 08:10 Neut % (Auto) 72.8 % 12/27/22 08:10 Lymph % (Auto) 18.0 % 12/27/22 08:10 Latimer % (Auto) 6.2 % 12/27/22 08:10 Eos % (Auto) 1.5 % 12/27/22 08:10 Baso % (Auto) 0.5 % 12/27/22 08:10 Neut # (Auto) 5.31 K/uL (1.40-6.50) 12/27/22 08:10 Lymph # (Auto) 1.31 K/uL (1.2-3.4) 12/27/22 08:10 Latimer # (Auto) 0.45 K/uL (0.11-0.59) 12/27/22 08:10 Eos # (Auto) 0.11 K/uL (0-0.50) 12/27/22 08:10 Baso # (Auto) 0.04 K/uL (0-0.2) 12/27/22 08:10 Immature Gran # (Auto) 0.07 K/uL (0.01-0.20) 12/27/22 08:10 Absolute Nucleated RBC 0.02 K/uL (0-0.12) 12/19/22 07:25 Nucleated RBC % (auto) 0.2 % 12/19/22 07:25 RBC Morphology Unremarkable 12/25/22 05:50 Polychromasia 1+ 12/26/22 06:54 PT 11.9 Seconds (9.0-12.0) 12/27/22 08:10 INR 1.1 (0.9-1.1) 12/27/22 08:10 APTT 28.3 Seconds (21.0-31.0) 12/27/22 08:10 PTT Ratio 1.0 12/27/22 08:10 Sodium 143 mmol/L (136-145) 12/27/22 08:10 Potassium 4.2 mmol/L (3.5-5.1) 12/27/22 08:10 Chloride 110 mmol/L (98-107) H 12/27/22 08:10 Carbon Dioxide 29 mmol/L (21-32) 12/27/22 08:10 Anion Gap 4 (3-11) 12/27/22 08:10 BUN 28 mg/dl (6-23) H 12/27/22 08:10 Creatinine 1.40 mg/dl (0.6-1.4) 12/27/22 08:10 Est Cr Clr Drug Dosing 62.4 ml/min 12/27/22 08:10 Est GFR ( Amer) 56.2 ml/min 12/27/22 08:10 Est GFR (Non-Af Amer) 48.5 ml/min 12/27/22 08:10 BUN/Creatinine Ratio 20.0 (10-20) 12/27/22 08:10 Glucose 91 mg/dl (70-99(Fasting)) 12/27/22 08:10 Calcium 8.6 mg/dl (8.6-10.3) 12/27/22 08:10 Iron 10 mcg/dl (35-175) L 12/24/22 07:36 Unsaturated IBC 224 mcg/dl (155-355) 12/24/22 07:36 Ferritin 48.6 ng/ml (8-388) 12/24/22 07:36 Total Bilirubin 0.6 mg/dl (0.2-1.0) 12/16/22 07:13 AST 12 U/L (13-39) L 12/16/22 07:13 ALT 14 U/L (7-52) 12/16/22 07:13 Alkaline Phosphatase 59 U/L (34-104) 12/16/22 07:13 Total Protein 5.6 gm/dl (6.0-8.3) L 12/16/22 07:13 Albumin 3.5 gm/dl (3.4-5.0) 12/16/22 07:13 Globulin 2.1 gm/dl (2.5-4.0) L 12/16/22 07:13 Albumin/Globulin Ratio 1.7 (0.9-2) 12/16/22 07:13 Urine Color Red 12/12/22 12:12 Urine Appearance Cloudy (Clear) A 12/12/22 12:12 Urine pH 6.5 (4.5-7.5) 12/12/22 12:12 Ur Specific [place] 1.016 (1.000-1.030) 12/12/22 12:12 Urine Protein 3+ (Negative) H 12/12/22 12:12 Urine Glucose (UA) Negative (Negative) 12/12/22 12:12 Urine Ketones Negative (Negative) 12/12/22 12:12 Urine Blood 3+ (Negative) H 12/12/22 12:12 Urine Nitrite Positive (Negative) A 12/12/22 12:12 Urine Bilirubin 1+ (Negative) H 12/12/22 12:12 Urine Urobilinogen Negative (Negative) 12/12/22 12:12 Ur Leukocyte Esterase 2+ (Negative) H 12/12/22 12:12 Urine RBC >30 /hpf (0-4) H 12/12/22 12:12 Urine WBC >30 /hpf (0-5) H 12/12/22 12:12 Ur Epithelial Cells 5-10 /lpf (0-5) H 12/12/22 12:12 Urine Bacteria 1+ (Negative) H 12/12/22 12:12 Stl C. diff Tox B Gene (Neg) 12/17/22 20:50 SARS-CoV-2, RNA, NAAT NEGATIVE (NEGATIVE) 12/12/22 15:01 Blood Type A Positive 12/21/22 09:38 Blood Type Recheck A Positive 12/12/22 18:29 Antibody Screen NEGATIVE 12/21/22 09:38 Crossmatch See Detail 12/21/22 09:38 Impressions Abdomen/Pelvis CT 12/12/22 12:33 CT SCAN OF THE ABDOMEN AND PELVIS WITHOUT IV CONTRAST CLINICAL HISTORY: Dysuria. COMPARISON STUDY: Abdominal CT dated 12/02/2017. TECHNIQUE: CT scan of the abdomen and pelvis is performed from the lung bases to the proximal femora. Images are reviewed in the axial, sagittal, and coronal planes. IV contrast was not administered for this examination. A dose lowering technique was utilized adhering to the principles of ALARA. CT DOSE: 1479.16 mGy.cm FINDINGS: Lung bases: The heart is normal in size noting a small pericardial effusion. The lung bases are clear. There is a small hiatal hernia. Liver: The unenhanced liver is enlarged, measuring 18.6 cm in length. The liver demonstrates diffusely diminished attenuation indicating steatosis. Fatty sparing is seen adjacent to the gallbladder fossa. There is no intrahepatic biliary ductal dilatation. Gallbladder: Unremarkable. Spleen: Normal in size and attenuation. Pancreas: The unenhanced pancreas is grossly unremarkable. Adrenal glands: Unremarkable. Kidneys: The unenhanced kidneys demonstrate cortical atrophy and are without hydronephrosis. There is a punctate nonobstructing right renal calculus. No left renal calculi are identified and there is no ureteral stone. There is no evidence of contour deforming renal mass lesion. Abdominal vasculature: The abdominal aorta is normal in course and caliber noting moderate to advanced atherosclerotic calcification. There is ectasia of the hepatic artery which measures up to 14 mm in diameter. This is similar to previous. Bowel: There is mild sigmoid diverticulosis without CT evidence of acute diverticulitis. No bowel obstruction is identified. The appendix is not identified and reported surgically absent. Peritoneum: There is no intraperitoneal free air or abdominal ascites. There is a small fat-containing umbilical hernia. Lymphadenopathy: None. Pelvic viscera: The prostate gland is diminutive and heterogeneous, and contains metallic implants. The bladder is decompressed around a Devlin catheter. The bladder wall appears thickened comment with surrounding inflammation and foci of intramural gas. There is a large posterior bladder diverticulum which measures up to 5.6 cm. Hyperdense material within the bladder and the large bladder diverticulum likely represents blood clots. An additional small bladder diverticulum is seen on the right. Skeletal structures: The skeletal structures are osteopenic. There is moderate lumbosacral spondylosis. Degenerative change and partial fusion is seen in the sacroiliac joints. No lytic or blastic lesions are seen. 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 This is similar to previous Soft tissues: There is an approximately 10 x 7.5 x 5.5 cm ovoid minimally complex fluid collection overlying the greater trochanter of the left femur seen on axial image #427. IMPRESSION: 1. The bladder is decompressed around a Devlin catheter. The wall appears thickened and there is surrounding inflammation. Correlate with clinical findings and urinalysis for evidence of cystitis. 2. Hyperdense material is present within the bladder lumen as well as within a large bladder diverticulum. This likely represents blood clots. Again, this should be correlated with urinalysis. Consider nonemergent follow-up with urology to exclude the possibility of underlying bladder lesion. 3. There is a punctate nonobstructing right renal calculus. 4. Hepatomegaly and hepatic steatosis. 5. Sigmoid diverticulosis without CT evidence of acute diverticulitis. 6. There is an ovoid minimally complex fluid collection overlying the greater trochanter of the left proximal femur. This likely represents a seroma or hematoma. The sterility of this fluid cannot be assessed by imaging and clinical correlation will be required. 7. Additional findings as above. ACT 112: Negative or not required by law. Electronically signed by: Jluis Oh M.D. 12/12/2022 1:[address] 12/16/22 14:42 CT chest diagnostic wo con CT DOSE: 1103.45 mGy.cm HISTORY: COPD. Shortness of breath. TECHNIQUE: Multiaxial CT images of the chest were performed without contrast. A dose lowering technique was utilized adhering to the principles of ALARA. COMPARISON: Chest CTA 05/22/2014. FINDINGS: The central airways are patent. No pneumothorax. No pleural effusions. Mild emphysema. There is a punctate calcified granuloma seen within the base of the left lower lobe. A few small linear densities within the right lung posteriorly. This may represent subsegmental atelectasis are scarring. No focal lung consolidations to suggest pneumonia. No evidence for pulmonary edema. No suspicious lytic or blastic osseous lesions. Limited views of the upper abdomen demonstrate hepatic steatosis and a normal spleen. The punctate stone within the right kidney. The adrenal glands are unremarkable. There is a trace pericardial effusion. The heart is normal in size. Normal esophagus. No mediastinal or hilar lymphadenopathy. Normal thyroid gland. Moderate calcified plaque within the coronary arteries and aortic valve. There is mild calcified plaque within the thoracic aorta. There is mild aneurysmal dilatation of the ascending thoracic aorta measuring up to 4.3 cm in diameter. IMPRESSION: 1. No focal lung consolidations to suggest pneumonia. 2. Mild emphysema. 3. Hepatic steatosis. 4. Right-sided nephrolithiasis. 5. Mild aneurysmal dilatation of the ascending thoracic aorta measuring up to 4.3 cm in diameter. ACT 112: Negative or not required by law. Electronically signed by: Des Harrison M.D. 12/16/2022 4:34 PM Chest X-Ray 12/17/22 16:00 XR chest 1V portable CLINICAL HISTORY: post thoracentesis COMPARISON STUDY: Chest CT December 16, 2022. FINDINGS: There is no pneumothorax. No pleural effusion is identified. Minimal left basilar opacity favors atelectasis. There is no evidence for pulmonary edema. Cardiomediastinal silhouette is stable. IMPRESSION: No acute cardiopulmonary findings. No pneumothorax. ACT 112: Negative or not required by law. Electronically signed by: Boris Keys M.D. 12/17/2022 4:36 PM Renal Ultrasound 12/22/22 16:22 US renal/blad retro comp CLINICAL HISTORY: violeta TECHNIQUE: Multiple sonographic real-time images of the kidneys and bladder were obtained. COMPARISON: Comparison is made to renal ultrasound 12/07/2017 FINDINGS: The right kidney measures 12.5 cm in length, and the left kidney measures 12.5 cm in length. The right kidney is normal in size, contour, cortical thickness, and echogenicity. No hydronephrosis is identified. No renal lesion is identified. The left kidney is normal in size, contour, cortical thickness and echogenicity. No hydronephrosis is identified. No renal lesion is identified. Complex material is seen in the bladder without vascular flow. The bladder wall appears hyperemic. No large intraluminal mass is seen. IMPRESSION: Complex material in the bladder is nonspecific but may represent chronic blood clot, clinical correlation and possible cystoscopy is recommended. ACT 112: Negative or not required by law. Electronically signed by: Alonso Fay M.D. 12/22/2022 9:30 PM Venous Doppler Study 12/26/22 13:20 US venous doppler LE BI CLINICAL HISTORY: Concern for DVT TECHNIQUE: Right lower extremity real-time compression venous ultrasound with Color Doppler imaging. Utilizing real-time ultrasonic imaging multiple real time high-resolution ultrasonic images with compression and noncompression maneuvers of the deep venous system in addition to color doppler imaging were performed from the common femoral vein through the proximal calf veins. COMPARISON: None available at the time of this dictation. FINDINGS/IMPRESSION: There is a deep venous thrombus extending from the common femoral vein, through the popliteal vein as well as the calf vessels, nearly occlusive in some areas. Pelvis is also seen to extend into the great saphenous vein. ACT 112: Negative or not required by law. Electronically signed by: Alonso Fay M.D. 12/26/2022 6:31 PM (1) Hematuria Hematuria type: gross Qualified Code(s): R31.0 - Gross hematuria
[2022-12-27] MEDS ORDERED: IRON SUCROSE 200 MG in 0.9 % SODIUM CHLORIDE 100 ML IV ONE (13:54)
[2022-12-27 16:16] LABS: Partial Thromboplastin Ratio 1.4
[2022-12-27 16:17] LABS: Partial Thromboplastin Time 40.7 Seconds (21.0-31.0)
[2022-12-27] MEDS: CHOLECALCIFEROL 5,000 UNITS 125 MCG TAB PO SCH (20:23)
[2022-12-27] MEDS: DONEPEZIL HCL 10 MG TAB PO SCH (20:23)
[2022-12-27] MEDS: UMECLIDINIUM/VILANTEROL 62.5/25MCG 7 PUFFS/INHALER INH SCH (20:24)
[2022-12-27] MEDS: FLUTICASONE FUROATE 200MCG 14 PUFFS/INHALER INH SCH (20:24)
[2022-12-27] MEDS: HYDROmorphone INJ 0.5 MG/0.5 ML SYR IV PRN (22:15)
[2022-12-27] MEDS: ACETAMINOPHEN 325 MG TAB PO PRN (22:53)
[2022-12-28] MEDS: oxyCODONE HCL IR 5 MG TAB (IMMEDIATE RELEASE) PO PRN ×3 (03:58→22:43)
[2022-12-28 08:44] LABS: Basophils # (auto) 0.02 K/uL (0-0.2); Basophils % (auto) 0.2 %; Eosinophils # (auto) 0.13 K/uL (0-0.50); Eosinophils % (auto) 1.5 %; Hematocrit (blood only) 27.2 % (42.0-52.0); Hemoglobin 8.2 g/dl (14.0-18.0); Immature Granulocytes # (auto) 0.09 K/uL (0.01-0.20); Immature Granulocytes % (auto) 1.1 %; Lymphocytes # (auto) 1.17 K/uL (1.2-3.4); Lymphocytes % (auto) 13.9 %; Mean Corpuscular Hemoglobin 26.1 pg (25.0-34.0); Mean Corpuscular Hgb Conc 30.1 g/dL (32.0-36.0); Mean Corpuscular Volume 86.6 fL (80.0-100.0); Mean Platelet Volume 8.8 fL (9.4-12.4); Monocytes # (auto) 0.43 K/uL (0.11-0.59); Monocytes % (auto) 5.1 %; Neutrophils # (auto) 6.58 K/uL (1.40-6.50); Neutrophils % (auto) 78.2 %; Platelet Count 210 K/uL (130-400); RDW Coefficient of Variation 16.8 % (11.5-14.5); RDW Standard Deviation 49.1 fL (36.4-46.3); Red Blood Count 3.14 M/uL (4.70-6.10); White Blood Count 8.42 K/ul (4.8-10.8)
[2022-12-28 09:08] LABS: Albumin Globulin Ratio 1.4 (0.9-2); Albumin Level 2.9 gm/dl (3.4-5.0); BUN Creatinine Ratio 17.8 (10-20); Bilirubin,Total 0.4 mg/dl (0.2-1.0); Calcium 8.5 mg/dl (8.6-10.3); Creatinine Clr Calc Pharmacy 67.7 ml/min; Est GFR (Non-African American) 53.5 ml/min; Globulin 2.1 gm/dl (2.5-4.0); Potassium 3.9 mmol/L (3.5-5.1)
[2022-12-28 09:13] LABS: Partial Thromboplastin Ratio 1.1; Partial Thromboplastin Time 31.6 Seconds (21.0-31.0)
--- NOTE | 2022-12-28 09:39 | Consultation ---
Date of Consultation December 28, 2022 Assessment & Plan (1) DVT (deep venous thrombosis): Pt with acute appearing RLE DVT on top of chronic DVT, and admitted for radiation cystitis hematuria requiring 3 U PRBC. Pt also seen by Dr Calderon today. Recommends pt undergo IVC filter insertion. Procedure, risks, benefits, and alternatives discussed with pt by myself at Dr Calderon's request. Pt expresses understanding and agreement. Pt also present for discussion. Patient was seen, examined, and chart reviewed. Agree with exam and treatment plan of the Vascular PA. 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 Pt states has had multiple DVT in past. venous US demonstrates acute on chronic DVT in RLE. Pt has required 3 U PRBC. Pt admits fatigue, malaise. Denies BALTAZAR, fever, chest pain, SOB, abd pain, N/V, rest pain, claudication, other complaints. Allergies Allergy/AdvReac Type Severity Reaction Status Date / Time Iodinated Contrast Media Allergy Severe CARDIAC Verified 12/28/22 10:[address] CONTRAST clindamycin Allergy Unknown Unknown Verified 12/28/22 10:40 Home Medications Medication Instructions Recorded Confirmed Type cholecalciferol (vitamin D3) 125 125 mcg PO QPM 06/20/20 12/12/22 History mcg (5,000 unit) capsule donepezil 10 mg tablet 10 mg PO QPM 04/13/22 12/12/22 History multivitamin with minerals 1 cap PO DAILY 04/13/22 12/12/22 History hydrocortisone sod succ (PF) 100 100 mg (2 mL) IM ONCE PRN Adrenal 04/24/22 12/12/22 Rx mg/2 mL solution for injection Crisis #1 ea (Solu-Cortef Act-O-Vial (PF)) ascorbic acid (vitamin C) 1,000 mg 1,000 mg PO QAM 08/27/22 12/12/22 History tablet (Vitamin C) vitamin E 400 unit tablet 400 mg PO QAM 08/27/22 12/12/22 History warfarin 5 mg tablet See Rx Instructions PO UD 11/27/22 12/12/22 History epinephrine 0.3 mg/0.3 mL 0.3 mg IM Q4H PRN anaphylaxis 11/30/22 12/12/22 History injection, auto-injector memantine 10 mg tablet 10 mg PO BID 11/30/22 12/12/22 History montelukast 10 mg tablet 10 mg PO DAILY 11/30/22 12/12/22 History albuterol sulfate 90 mcg/actuation 2 puff inhalation Q6H PRN 12/03/22 12/12/22 Rx aerosol inhaler shortness of breath or wheezing #8.5 grams fluticasone fur. 200 mcg-umeclid 1 inh inhalation QPM 12/12/22 12/12/22 History 62.5 mcg-vilant 25 mcg inhalat.powder (Trelegy Ellipta) fluticasone propionate 50 2 spray intranasal DAILY 12/12/22 12/12/22 History mcg/actuation nasal spray,suspension hydrocortisone 5 mg tablet See Rx Instructions .Route 12/15/22 Rx .COMPLEX 90 days #450 tabs Patient History Medical History (Updated 12/28/22 @ 09:37 by Perla Stearns PA-C) Bradley's disease follows with Endocrinology [facility] Adrenal insufficiency Allergic rhinitis Andropause Aortic stenosis follows annually with cardiology Ascending aorta dilation Asthma (10/03/11) well controlled. Benign prostatic hyperplasia Cardiac arrest hx r/t IV Contrast Dye "many years ago" Chronic steroid use Contrast media allergy COPD (chronic obstructive pulmonary disease) well controlled. uses Breo daily with exercise DVT (deep venous thrombosis) Hiatal hernia History of anal fissures History of DVT (deep vein thrombosis) hx "many years ago" unknown etiology History of pulmonary embolism hx "many years ago" unknown etiology Hx of prostatic malignancy ~2019. radiation Kidney stones x1 episode. no surgery needed. 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 Plan for 18 months of hormonal suppression Status post completion of radiation therapy 10/09/2016 received 8040 cGy" On 05/20/16 11:31 Hilda Montemayor wrote "Positive family history of prostate cancer Rising PSA to 6.54 Status post ultrasound-guided biopsies 12/22/2013 revealing adenocarcinoma Norvell 3+4 Status post TURP 04/23/2014 benign tissue Status post repeat biopsy 07/19/2015 3+3, and 3+4 4+3 Status post repeat biopsy 03/06/2016 3+4, 4+3 and 4+4" Sleep apnea Cpap Stage 3 chronic kidney disease Venous insufficiency (chronic) (peripheral) Surgical History H/O sinus surgery History of appendectomy History of colonoscopy History of right cataract extraction S/P cataract extraction S/P TURP (status post transurethral resection of prostate) Status post cystoscopy (11/07/13) Family History Father Prostate cancer Brother Prostate cancer Mother Thyroid cancer Cancer Other No family history of adverse response to anesthesia Social History Smoking Status: Never smoker Second Hand Exposure: No; Do You Dip or Chew Tobacco: No; Hx Alcohol Use: Yes Alcohol type: beer Alcohol Intake Frequency: Monthly or Less Hx Substance Use: No Preferred Language: Luxembourger Communication Ability: Effective Radiology Technician Required: No Beliefs That Will Affect Care: None marital status: Current Living Situation: Spouse Current Living Situation Comment: at home with current occupational status: retired Feels Safe at Home: Yes during the past year weight has: increased > 10 lbs Seatbelt Use: always Assistive Devices: Glasses Review of Systems Review of Systems: All systems reviewed & are unremarkable except as noted in HPI & below Physical Exam Constitutional: WD/WN, vitals as above ENMT: Ears: no hearing impairment Neck: trachea midline Respiratory: normal respiratory effort, lungs clear to auscultation Auscultation: + diminished lung sounds Cardiovascular: Rate/Rhythm: regular rate and regular rhythm Vessels: posterior tibial pulses present, dorsalis pedis pulses present and radial pulses present Extremities: normal capillary refill and + edema (BLE, R>L) Gastrointestinal (Abdomen): Inspection/Auscultation: abdomen normal to inspection and normal bowel sounds Percussion/Palpation: abdomen soft; abdomen nontender Musculoskeletal: no cyanosis or clubbing, extremities motor strength 5/5 Skin: no rashes, warm and dry + ulcer Neurologic: moves all extremities and awake; no focal motor deficits and not confused Psychiatric: A+Ox3, euthymic affect Results & Data Vital Signs (Past 12 Hours) Vital Signs Temp Pulse Pulse Resp BP BP Pulse Ox 12/28/22 07:50 36.6 C 67 20 124/66 97 12/28/22 03:44 36.7 C 73 18 146/78 H 96 12/28/22 01:56 74 12/27/22 23:22 37 C 75 18 135/69 95 O2 Del Method 12/28/22 07:50 Room Air 12/28/22 03:44 Room Air 12/28/22 01:56 12/27/22 23:22 Room Air
[2022-12-28] MEDS: FLUTICASONE PROPIONATE NA SPR 16 GM BTL SCH (09:51)
[2022-12-28] MEDS: MONTELUKAST SODIUM 10 MG TABLET PO SCH (09:54)
[2022-12-28] MEDS: ADVANCED PROBIOTIC 1250 MG CAPSULE PO SCH (09:54)
[2022-12-28] MEDS: HYDROCORTISONE 10 MG TAB PO SCH ×2 (09:54→18:16)
[2022-12-28] MEDS: MULTIVITAMIN TAB PO SCH (09:54)
[2022-12-28] MEDS: TOCOPHERYL, DL-ALPHA 400 UNITS 180 MG CAP PO SCH (09:54)
[2022-12-28] MEDS: ASCORBIC ACID 500 MG TAB PO SCH (09:55)
[2022-12-28] MEDS ORDERED: HYDROCORTISONE SOD 100 MG in SYRINGE 0 ML IV ONE (10:30)
[2022-12-28] MEDS ORDERED: ceFAZolin 2,000 MG/15 ML IV PUSH IV ONE (10:50)
[2022-12-28] MEDS ORDERED: ceFAZolin 3000MG/72.5 ML BAG IV ONE (10:53)
--- NOTE | 2022-12-28 11:04 | Pre Anesthesia Assessment ---
Date of Service December 28, 2022 Pre Sedation Assessment Vital Signs Temp Pulse Pulse Resp BP BP Pulse Ox 12/28/22 10:33 37.0 C 76 18 149/76 H 97 12/28/22 07:50 36.6 C 67 20 124/66 97 12/28/22 03:44 36.7 C 73 18 146/78 H 96 12/28/22 01:56 74 12/27/22 23:22 37 C 75 18 135/69 95 12/27/22 19:19 37.2 C 77 16 144/72 H 96 12/27/22 16:10 36.7 C 73 20 150/77 H 98 12/27/22 11:32 36.7 C 79 18 125/68 96 O2 Del Method 12/28/22 10:33 Room Air 12/28/22 07:50 Room Air 12/28/22 03:44 Room Air 12/28/22 01:56 12/27/22 23:22 Room Air 12/27/22 19:19 Room Air 12/27/22 16:10 Room Air 12/27/22 11:32 Room Air Cardiovascular RRR, no murmur, no edema Respiratory normal respiratory effort, lungs clear to auscultation Pre-Sedation Airway Assessment Smoking Status: Never smoker Hx Sleep Apnea: Yes Short, Thick Neck: Yes Thyromental Distance: > or= 3.5 Finger Breadths Oral Cavity: + WNL Mallampati Class: III ASA: ASA3 NPO Status Date of Last Intake of Fluids: 12/27/22 Time of Last Intake of Fluids: 23:00 Date of Last Intake of Solid Food: 12/27/22 Time of Last Intake of Solid Foods: 19:00 Procedure Planning Contraindications for Sedation: none Current Medications Reviewed: Yes Notes The planned sedation has been discussed with the patient. Informed Consent was obtained. I have identified the patient, determined the appropriateness of sedation and have assessed the patient immediately prior to the procedure. All medicine(s) and interventions are by my order.
[2022-12-28] MEDS ORDERED: LIDOCAINE 1% LOCAL 20 ML VIAL ONE (11:12)
[2022-12-28] MEDS ORDERED: fentaNYL citrate PF 100 MCG/2 ML VIAL ONE (11:13)
[2022-12-28] MEDS ORDERED: MIDAZOLAM HCL 1 MG/ML 2ML VIAL ONE (11:13)
[2022-12-28] MEDS ORDERED: HYDROCORTISONE SOD SUCCINATE 100 MG/2 ML VIAL ONE (11:24)
--- NOTE | 2022-12-28 11:30 | Post Anesthesia Assessment ---
Date of Service December 28, 2022 Post Sedation Assessment Vital Signs Temp Pulse Pulse Resp BP BP Pulse Ox 12/28/22 11:22 77 16 146/72 H 97 12/28/22 11:17 74 16 153/77 H 97 12/28/22 11:27 69 16 132/72 98 12/28/22 11:15 79 16 165/86 H 98 12/28/22 10:33 37.0 C 76 18 149/76 H 97 12/28/22 07:50 36.6 C 67 20 124/66 97 12/28/22 03:44 36.7 C 73 18 146/78 H 96 12/28/22 01:56 74 12/27/22 23:22 37 C 75 18 135/69 95 12/27/22 19:19 37.2 C 77 16 144/72 H 96 12/27/22 16:10 36.7 C 73 20 150/77 H 98 12/27/22 11:32 36.7 C 79 18 125/68 96 O2 Del Method O2 Flow Rate 12/28/22 11:22 Oxymask 4 12/28/22 11:17 Oxymask 4 12/28/22 11:27 Oxymask 4 12/28/22 11:15 Oxymask 4 12/28/22 10:33 Room Air 12/28/22 07:50 Room Air 12/28/22 03:44 Room Air 12/28/22 01:56 12/27/22 23:22 Room Air 12/27/22 19:19 Room Air 12/27/22 16:10 Room Air 12/27/22 11:32 Room Air Recovery Score Activity: Moves 4 extremities Respiration: Deep Breath/Cough Circulation: +/-20% PreAnes Value Consciousness: Fully Awake Oxygen Saturation: > 92% On Room Air Post Anesthesia Score: 10 Discharge Sedation Level of Care: Fast Track Phase II Post Sedation Plan On clinical assessment, the patient appears to have tolerated the sedation without complications. Patient is recovering as anticipated. Patient will continue to be monitored by nursing and may be discharged when sedation discharge criteria are met per below protocol. Upon Completions of procedure up to 15 minutes continue every 5 minute vital signs and the P.A.R. score; then discharge to a Phase I or Fast Track to Phase II per the following guidelines: * Discharge Patient to appropriate Phase II area if PAR is 8 or greater or return to pre- procedure baseline. The post - procedure orders will be as directed. * If PAR score is less than 8 or not return to pre-procedure baseline then patient will follow Phase I monitoring till PAR is reached for Phase II. The Phase I may be done in procedure room or may call to secure a Phase I area. * If naloxone or flumazenil are used for reversal, hold in Phase I for continued monitoring from when last reversal dose was given for a minimum of 60 minutes or longer pending the nurse and/or physician discretion of patient condition before discharge to Phase II. Please call the Sedation Physician to re-evaluate and complete post-note for discharge to Phase II area. Do NOT discharge from procedure sedation or Phase 1 until post- sedation evalu ation note is complete by procedure /sedation MD Sedation Discharge Instructions to be given to the patient at discharge to home.
--- NOTE | 2022-12-28 11:37 | Operative Report ---
Post Operative Report Pre & Post Diagnosis Operation Date: 12/28/22 15:50 Pre-Op Diagnosis: Deep Venous Thrombosis, Contraindication to Anticoagulation Post-Op Diagnosis: Deep Venous Thrombosis, Contraindication to Anticoagulation I identified the patient and participated in the time-out.: Yes Procedure Operation Date: 12/28/22 15:50 Actual Procedures p Inferior Vena Cava Filter Placement, Ultrasound Localization of Right Femoral Vein, Fluoroscopy for Postioning, Moderate Sedation [id number](Right) - Ramo Calderon MD Surgeon Ramo Calderon MD Hotel Security Officer none Estimated Blood Loss 0 Findings Consistent with Post-Op Diagnosis Specimens none Anesthesia Type RN Sedation Complications none Disposition Accompanied Patient To Recovery: Yes Disposition: Recovery Room Indications This is a 77-year-old gentleman who has had multiple bouts of deep venous thrombosis in the past. He has another acute DVT of his right lower extremity but presented with hematuria from mild radiation cystitis. He was transfused during his hospital stay. Insertion of a filter was recommended due to his risk of anticoagulation. I have discussed the risks options and benefits of the procedure with the patient. The patient understands the risks options and benefits and agrees to the procedure. Description of Procedure The patient was brought to the angio suite and placed in the supine position. The patient was identified and a timeout performed. The groins were prepped and draped in the usual fashion. The right common femoral vein was located with ultrasound. It was patent, compressed easily, and had no filling defects. The vein was then punctured under ultrasound visualization. A guidewire was then passed centrally into the inferior vena cava under fluoroscopic guidance. The filter sheath inserted. It was passed to the infra renal vena cava. Due to his history of cardiac arrest after contrast injection we decided to avoid any contrast. On CT scan done prior to this is renal veins were located at the L2 level. We passed the filter sheath and placed it at the top of L4. The filter was then passed through the sheath and deployed in the infra renal vena cava in an upright position. Satisfied with the positioning of the filter, the sheath was removed. Pressure was applied to the puncture site. Adequate hemostasis was obtained and a sterile dressing was applied. The patient left the operation room in satisfactory condition and tolerated the procedure well. All needle and sponge counts were correct at the end of the procedure. I attest to the content of the Intraoperative Record and any orders documented therein. Any exceptions are noted below.
--- NOTE | 2022-12-28 12:56 | Hospitalist Progress Note ---
Date of Service December 28, 2022 Assessment & Plan (1) Hematuria: Plan: H/O prostate cancer about 5 years ago and status post 44 radiation treatment and 4 infusion treatment. He has been complaining of hematuria for the last 3 months. Was seen by urology clinic on and the postvoid residual was 48 mL- apparent UA at that time did not show any infection. 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 Cystoscopy done in August 2022 with urethral dilation and fulguration; was being planned for hyperbaric oxygen therapy as outpatient Brought to the hospital with shortness of breath. Found to be anemic --CT ABD:The bladder is decompressed around a Devlin catheter. The wall appears thickened and there is surrounding inflammation. Correlate with clinical findings and urinalysis for evidence of cystitis. Hyperdense material is present within the bladder lumen as well as within a large bladder diverticulum. This likely represents blood clots. Again, this should be correlated with urinalysis. Consider nonemergent follow-up with urology to exclude the possibility of underlying bladder lesion. There is a punctate nonobstructing right renal calculus. Hepatomegaly and hepatic steatosis. Sigmoid diverticulosis without CT evidence of acute diverticulitis. There is an ovoid minimally complex fluid collection overlying the greater trochanter of the left proximal femur. This likely represents a seroma or hematoma. The sterility of this fluid cannot be assessed by imaging and clinical correlation will be required. -- Urine culture negative for UTI Patient underwent continuous bladder irrigation earlier in the hospitalization as per urology. Transfused 3 units of packed RBC. Devlin was removed on December 22, 2022. patient has been incontinent since Devlin removal; still has some gross hematuria. Renal ultrasound from 12/22 results reviewed; complex material in the bladder seen likely chronic blood clot Discussed with urology regarding the ultrasound findings; recommend conservative management. No plans for repeat cystoscopy. Plan for discharge to rehab, then home. Plan for outpatient hyperbaric oxygen treatment after discharging home Peer to peer done on 12/26; discussed regarding patient condition over 15 minutes. Advocated that patient will benefit from inpatient rehab stay as he has good rehab potential and needs medical supervision. However, it was denied. Case management was informed. Will need to look for SNF placement. 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 Patient has a history of DVT/PE in the past. He was on Coumadin prior to admission which was stopped due to gross hematuria/anemia. Discussion was done by previous hospitalist with Dr. Gore on 12/18/2022; trial of Lovenox 30 mg subcu was done. However, he continued to have hematuria. It was discontinued after discussion with the family and the patient. Venous duplex done on 12/26/2022shows concern for DVT extending from common femoral vein through popliteal vein as well as calf vessels. DC heparin drip. Symptomatic anemia Acute blood loss anemia due to hematuria S/P 3 unit PRBCs Monitor H&H and transfuse PRBCs as needed Hemoglobin stable Iron studies personally reviewed; consistent with iron deficiency anemia. Ferritin of 48 Completed 5-day course of IV iron on 12/28. VIOLETA on CKD III, likely prerenalresolved Creatinine bumped up to 3.14 during the hospitalization downtrended to baseline with iv hydration Renal usg as above. Diarrhea Likely secondary to IV antibiotics Check stool for C. difficile if recurrence of diarrhea Received empiric IV antibiotics for cystitis Aortic stenosis: --ECHO-Echo was done on of this month showed normal LV size and systolic function with EF of 60 to 65%, no regional wall motion abnormalities, moderate concentric LVH, mild aortic stenosis, mild mitral regurgitation, mildly dilated ascending aorta of 4.4 cm, small pericardial effusion without tamponade, no significant change compared with prior study of 06/16/2001 COPD (chronic obstructive pulmonary disease): Has COPD on trilogy Follows with [facility] as outpatient No acute exacerbation Obstructive sleep apnea on trilogy CKD Monitor renal function DVT Px: SCDs. Code Status Full Code Time spent evaluating patient, direct bedside care, chart review, placing orders, interpretation of diagnostic studies, discussion with consultants, patient, and family members, as well as other required patient management activi ties is 60 minutes. Please note the above document was generated using voice recognition software. It may contain grammatical, syntax or spelling errors. Any formal questions or concerns about the content, text or information contained within the body of this dictation should be directly addressed to the provider for clarification Admission and Anticipated Discharge Date Admission Date: December 14, 2022 Subjective Patient seen and examined at bedside. He underwent IVC filter placement today; tolerated well. Appears comfortable. Review of Systems Review of Systems: All systems reviewed & are unremarkable except as noted in Subjective Physical Exam Physical Exam: Physical Exam: Vitals signs as noted above General Appearance:Moderately built and nourished, no apparent distress Head: normocephalic, Atraumatic Eyes: normal inspection, EOMI Neck: supple, Trachea midline Respiratory/Chest: Bilateral clear breath sound. Cardiovascular: S1, S2, + murmur Abdomen/GI:Soft, Non tender, Bowel sounds present Extremities/Musculoskeletal:normal inspection, 1+ edema. Right leg swelling g reater than left. Chronic venous changes presented right leg Neurologic/Psych:AAOX3, grossly no focal neurological deficits Skin: normal color, warm Results & Data Results & Data Vital Signs (Past 12 Hours) Vital Signs Temp Pulse Pulse Resp BP BP Pulse Ox 12/28/22 11:32 73 16 140/77 96 12/28/22 11:22 77 16 146/72 H 97 12/28/22 11:17 74 16 153/77 H 97 12/28/22 11:27 69 16 132/72 97 12/28/22 11:15 79 16 165/86 H 98 12/28/22 10:33 37.0 C 76 18 149/76 H 97 12/28/22 07:50 36.6 C 67 20 124/66 97 12/28/22 03:44 36.7 C 73 18 146/78 H 96 12/28/22 01:56 74 O2 Del Method O2 Flow Rate 12/28/22 11:32 Room Air 0 12/28/22 11:22 Oxymask 4 12/28/22 11:17 Oxymask 4 12/28/22 11:27 Room Air 0 12/28/22 11:15 Oxymask 4 12/28/22 10:33 Room Air 12/28/22 07:50 Room Air 12/28/22 03:44 Room Air 12/28/22 01:56 Laboratory Results Laboratory Results WBC 8.42 K/ul (4.8-10.8) 12/28/22 08:00 RBC 3.14 M/uL (4.70-6.10) L 12/28/22 08:00 Hgb 8.2 g/dl (14.0-18.0) L 12/28/22 08:00 Hct 27.2 % (42.0-52.0) L 12/28/22 08:00 MCV 86.6 fL (80.0-100.0) 12/28/22 08:00 MCH 26.1 pg (25.0-34.0) 12/28/22 08:00 MCHC 30.1 g/dL (32.0-36.0) L 12/28/22 08:00 RDW Std Deviation 49.1 fL (36.4-46.3) H 12/28/22 08:00 RDW Coeff of Robert 16.8 % (11.5-14.5) H 12/28/22 08:00 Plt Count 210 K/uL (130-400) 12/28/22 08:00 MPV 8.8 fL (9.4-12.4) L 12/28/22 08:00 Immature Gran % (Auto) 1.1 % 12/28/22 08:00 Neut % (Auto) 78.2 % 12/28/22 08:00 Lymph % (Auto) 13.9 % 12/28/22 08:00 [place] % (Auto) 5.1 % 12/28/22 08:00 Eos % (Auto) 1.5 % 12/28/22 08:00 Baso % (Auto) 0.2 % 12/28/22 08:00 Neut # (Auto) 6.58 K/uL (1.40-6.50) H 12/28/22 08:00 Lymph # (Auto) 1.17 K/uL (1.2-3.4) L 12/28/22 08:00 [place] # (Auto) 0.43 K/uL (0.11-0.59) 12/28/22 08:00 Eos # (Auto) 0.13 K/uL (0-0.50) 12/28/22 08:00 Baso # (Auto) 0.02 K/uL (0-0.2) 12/28/22 08:00 Immature Gran # (Auto) 0.09 K/uL (0.01-0.20) 12/28/22 08:00 Absolute Nucleated RBC 0.02 K/uL (0-0.12) 12/19/22 07:25 Nucleated RBC % (auto) 0.2 % 12/19/22 07:25 RBC Morphology Unremarkable 12/25/22 05:50 Polychromasia 1+ 12/26/22 06:54 PT 11.9 Seconds (9.0-12.0) 12/27/22 08:10 INR 1.1 (0.9-1.1) 12/27/22 08:10 APTT 31.6 Seconds (21.0-31.0) H 12/28/22 08:00 PTT Ratio 1.1 12/28/22 08:00 Sodium 140 mmol/L (136-145) 12/28/22 08:00 Potassium 3.9 mmol/L (3.5-5.1) 12/28/22 08:00 Chloride 106 mmol/L (98-107) 12/28/22 08:00 Carbon Dioxide 30 mmol/L (21-32) 12/28/22 08:00 Anion Gap 4 (3-11) 12/28/22 08:00 BUN 23 mg/dl (6-23) 12/28/22 08:00 Creatinine 1.29 mg/dl (0.6-1.4) 12/28/22 08:00 Est Cr Clr Drug Dosing 67.7 ml/min 12/28/22 08:00 Est GFR ( Amer) 62.0 ml/min 12/28/22 08:00 Est GFR (Non-Af Amer) 53.5 ml/min 12/28/22 08:00 BUN/Creatinine Ratio 17.8 (10-20) 12/28/22 08:00 Glucose 87 mg/dl (70-99(Fasting)) 12/28/22 08:00 Calcium 8.5 mg/dl (8.6-10.3) L 12/28/22 08:00 Iron 10 mcg/dl (35-175) L 12/24/22 07:36 Unsaturated IBC 224 mcg/dl (155-355) 12/24/22 07:36 Ferritin 48.6 ng/ml (8-388) 12/24/22 07:36 Total Bilirubin 0.4 mg/dl (0.2-1.0) 12/28/22 08:00 AST 12 U/L (13-39) L 12/28/22 08:00 ALT 15 U/L (7-52) 12/28/22 08:00 Alkaline Phosphatase 52 U/L (34-104) 12/28/22 08:00 Total Protein 5.0 gm/dl (6.0-8.3) L 12/28/22 08:00 Albumin 2.9 gm/dl (3.4-5.0) L 12/28/22 08:00 Globulin 2.1 gm/dl (2.5-4.0) L 12/28/22 08:00 Albumin/Globulin Ratio 1.4 (0.9-2) 12/28/22 08:00 Urine Color Red 12/12/22 12:12 Urine Appearance Cloudy (Clear) A 12/12/22 12:12 Urine pH 6.5 (4.5-7.5) 12/12/22 12:12 Ur Specific Mulga 1.016 (1.000-1.030) 12/12/22 12:12 Urine Protein 3+ (Negative) H 12/12/22 12:12 Urine Glucose (UA) Negative (Negative) 12/12/22 12:12 Urine Ketones Negative (Negative) 12/12/22 12:12 Urine Blood 3+ (Negative) H 12/12/22 12:12 Urine Nitrite Positive (Negative) A 12/12/22 12:12 Urine Bilirubin 1+ (Negative) H 12/12/22 12:12 Urine Urobilinogen Negative (Negative) 12/12/22 12:12 Ur Leukocyte Esterase 2+ (Negative) H 12/12/22 12:12 Urine RBC >30 /hpf (0-4) H 12/12/22 12:12 Urine WBC >30 /hpf (0-5) H 12/12/22 12:12 Ur Epithelial Cells 5-10 /lpf (0-5) H 12/12/22 12:12 Urine Bacteria 1+ (Negative) H 12/12/22 12:12 Stl C. diff Tox B Gene (Neg) 12/17/22 20:50 SARS-CoV-2, RNA, NAAT NEGATIVE (NEGATIVE) 12/12/22 15:01 Blood Type A Positive 12/21/22 09:38 Blood Type Recheck A Positive 12/12/22 18:29 Antibody Screen NEGATIVE 12/21/22 09:38 Crossmatch See Detail 12/21/22 09:38 Impressions Abdomen/Pelvis CT 12/12/22 12:33 CT SCAN OF THE ABDOMEN AND PELVIS WITHOUT IV CONTRAST CLINICAL HISTORY: Dysuria. COMPARISON STUDY: Abdominal CT dated 12/02/2017. TECHNIQUE: CT scan of the abdomen and pelvis is performed from the lung bases to the proximal femora. Images are reviewed in the axial, sagittal, and coronal planes. IV contrast was not administered for this examination. A dose lowering technique was utilized adhering to the principles of ALARA. CT DOSE: 1479.16 mGy.cm FINDINGS: Lung bases: The heart is normal in size noting a small pericardial effusion. The lung bases are clear. There is a small hiatal hernia. Liver: The unenhanced liver is enlarged, measuring 18.6 cm in length. The liver demonstrates diffusely diminished attenuation indicating steatosis. Fatty sparing is seen adjacent to the gallbladder fossa. There is no intrahepatic biliary ductal dilatation. Gallbladder: Unremarkable. Spleen: Normal in size and attenuation. Pancreas: The unenhanced pancreas is grossly unremarkable. Adrenal glands: Unremarkable. Kidneys: The unenhanced kidneys demonstrate cortical atrophy and are without hydronephrosis. There is a punctate nonobstructing right renal calculus. No left renal calculi are identified and there is no ureteral stone. There is no evidence of contour deforming renal mass lesion. Abdominal vasculature: The abdominal aorta is normal in course and caliber noting moderate to advanced atherosclerotic calcification. There is ectasia of the hepatic artery which measures up to 14 mm in diameter. This is similar to previous. Bowel: There is mild sigmoid diverticulosis without CT evidence of acute diverticulitis. No bowel obstruction is identified. The appendix is not identified and reported surgically absent. Peritoneum: There is no intraperitoneal free air or abdominal ascites. There is a small fat-containing umbilical hernia. Lymphadenopathy: None. Pelvic viscera: The prostate gland is diminutive and heterogeneous, and contains metallic implants. The bladder is decompressed around a Devlin catheter. The bladder wall appears thickened comment with surrounding inflammation and foci of intramural gas. There is a large posterior bladder diverticulum which measures up to 5.6 cm. Hyperdense material within the bladder and the large bladder diverticulum likely represents blood clots. An additional small bladder diverticulum is seen on the right. Skeletal structures: The skeletal structures are osteopenic. There is moderate lumbosacral spondylosis. Degenerative change and partial fusion is seen in the sacroiliac joints. No lytic or blastic lesions are seen. 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 This is similar to previous Soft tissues: There is an approximately 10 x 7.5 x 5.5 cm ovoid minimally complex fluid collection overlying the greater trochanter of the left femur seen on axial image #427. IMPRESSION: 1. The bladder is decompressed around a Devlin catheter. The wall appears thickened and there is surrounding inflammation. Correlate with clinical findings and urinalysis for evidence of cystitis. 2. Hyperdense material is present within the bladder lumen as well as within a large bladder diverticulum. This likely represents blood clots. Again, this should be correlated with urinalysis. Consider nonemergent follow-up with urology to exclude the possibility of underlying bladder lesion. 3. There is a punctate nonobstructing right renal calculus. 4. Hepatomegaly and hepatic steatosis. 5. Sigmoid diverticulosis without CT evidence of acute diverticulitis. 6. There is an ovoid minimally complex fluid collection overlying the greater trochanter of the left proximal femur. This likely represents a seroma or hematoma. The sterility of this fluid cannot be assessed by imaging and clinical correlation will be required. 7. Additional findings as above. ACT 112: Negative or not required by law. Electronically signed by: Jluis Oh M.D. 12/12/2022 1:[address] 12/16/22 14:42 CT chest diagnostic wo con CT DOSE: 1103.45 mGy.cm HISTORY: COPD. Shortness of breath. TECHNIQUE: Multiaxial CT images of the chest were performed without contrast. A dose lowering technique was utilized adhering to the principles of ALARA. COMPARISON: Chest CTA 05/22/2014. FINDINGS: The central airways are patent. No pneumothorax. No pleural effusions. Mild emphysema. There is a punctate calcified granuloma seen within the base of the left lower lobe. A few small linear densities within the right lung p osteriorly. This may represent subsegmental atelectasis are scarring. No focal lung consolidations to suggest pneumonia. No evidence for pulmonary edema. No suspicious lytic or blastic osseous lesions. Limited views of the upper abdomen demonstrate hepatic steatosis and a normal spleen. The punctate stone within the right kidney. The adrenal glands are unremarkable. There is a trace pericardial effusion. The heart is normal in size. Normal esophagus. No mediastinal or hilar lymphadenopathy. Normal thyroid gland. Moderate calcified plaque within the coronary arteries and aortic valve. There is mild calcified plaque within the thoracic aorta. There is mild aneurysmal dilatation of the ascending thoracic aorta measuring up to 4.3 cm in diameter. IMPRESSION: 1. No focal lung consolidations to suggest pneumonia. 2. Mild emphysema. 3. Hepatic steatosis. 4. Right-sided nephrolithiasis. 5. Mild aneurysmal dilatation of the ascending thoracic aorta measuring up to 4.3 cm in diameter. ACT 112: Negative or not required by law. Electronically signed by: Des Harrison M.D. 12/16/2022 4:34 PM Chest X-Ray 12/17/22 16:00 XR chest 1V portable CLINICAL HISTORY: post thoracentesis COMPARISON STUDY: Chest CT December 16, 2022. FINDINGS: There is no pneumothorax. No pleural effusion is identified. Minimal left basilar opacity favors atelectasis. There is no evidence for pulmonary edema. Cardiomediastinal silhouette is stable. IMPRESSION: No acute cardiopulmonary findings. No pneumothorax. ACT 112: Negative or not required by law. Electronically signed by: Boris Keys M.D. 12/17/2022 4:36 PM Renal Ultrasound 12/22/22 16:22 US renal/blad retro comp CLINICAL HISTORY: violeta TECHNIQUE: Multiple sonographic real-time images of the kidneys and bladder were obtained. COMPARISON: Comparison is made to renal ultrasound 12/07/2017 FINDINGS: The right kidney measures 12.5 cm in length, and the left kidney measures 12.5 cm in length. The right kidney is normal in size, contour, cortical thickness, and echogenicity. No hydronephrosis is identified. No renal lesion is identified. The left kidney is normal in size, contour, cortical thickness and echogenicity. No hydronephrosis is identified. No renal lesion is identified. Complex material is seen in the bladder without vascular flow. The bladder wall appears hyperemic. No large intraluminal mass is seen. IMPRESSION: Complex material in the bladder is nonspecific but may represent chronic blood clot, clinical correlation and possible cystoscopy is recommended. ACT 112: Negative or not required by law. Electronically signed by: Alonso Fay M.D. 12/22/2022 9:30 PM Venous Doppler Study 12/26/22 13:20 US venous doppler LE BI CLINICAL HISTORY: Concern for DVT TECHNIQUE: Right lower extremity real-time compression venous ultrasound with Color Doppler imaging. Utilizing real-time ultrasonic imaging multiple real time high-resolution ultrasonic images with compression and noncompression maneuvers of the deep venous system in addition to color doppler imaging were performed from the common femoral vein through the proximal calf veins. COMPARISON: None available at the time of this dictation. FINDINGS/IMPRESSION: There is a deep venous thrombus extending from the common femoral vein, through the popliteal vein as well as the calf vessels, nearly occlusive in some areas. Pelvis is also seen to extend into the great saphenous vein. ACT 112: Negative or not required by law. Electronically signed by: Alonso Fay M.D. 12/26/2022 6:31 PM (1) Hematuria Hematuria type: gross Qualified Code(s): R31.0 - Gross hematuria
[2022-12-28] MEDS ORDERED: IRON SUCROSE 200 MG in 0.9 % SODIUM CHLORIDE 100 ML IV ONE (13:15)
[2022-12-28] MEDS: LIDOCAINE 2% JELLY 5 ML TUBE EXT SCH (16:36)
[2022-12-28] MEDS: ACETAMINOPHEN 325 MG TAB PO PRN (18:29)
--- NOTE | 2022-12-28 20:03 | Nephrology Progress Note ---
Date of Service December 28, 2022 Assessment & Plan (1) History of acute renal failure: Plan: 77-year-old male with a history of chronic kidney disease stage III, baseline creatinine around 1.6, admitted with gross hematuria 12/12. He had stage 2 VIOLETA nonooliguric w/ creatinine up to 3.1 w/in a span of a few days. Prerenal VIOLETA now resolved and better than baseline. Will sign off Recommend -nsaid avoidance -bmp w/in a week of hospital d/c -f/u as OP w/ nephro prn Admission and Anticipated Discharge Date Admission Date: December 14, 2022 Subjective seen on PM rounds; s/p IVC filter after DVT; no sob, no uncontrolled pain except at tip of penis, no bleeding Review of Systems Review of Systems: All systems reviewed & are unremarkable except as noted in Subjective Physical Exam Constitutional: well developed and well nourished Eyes: EOM intact bilaterally ENMT: Ears: no external ear abnormality Nose: no external nose abnormality Mouth: + dry oral mucous membranes Neck: no nuchal rigidity Respiratory: normal respiratory effort Auscultation: + diminished lung sounds Cardiovascular: Rate/Rhythm: regular rate and regular rhythm Extremities: + edema Gastrointestinal (Abdomen): Inspection/Auscultation: normal bowel sounds Percussion/Palpation: abdomen soft; abdomen nontender Musculoskeletal: Extremities: strength 5/5 throughout Skin: no rashes, warm and dry Neurologic: mejia, fluent speech, no tremor Results & Data Vital Signs (Past 12 Hours) Vital Signs Temp Pulse Pulse Resp BP BP Pulse Ox 12/28/22 14:15 83 12/28/22 12:00 68 12/28/22 14:41 37.1 C 77 20 129/75 95 12/28/22 11:32 73 16 140/77 96 12/28/22 11:22 77 16 146/72 H 97 12/28/22 11:17 74 16 153/77 H 97 12/28/22 11:27 69 16 132/72 97 12/28/22 11:15 79 16 165/86 H 98 12/28/22 10:33 37.0 C 76 18 149/76 H 97 O2 Del Method O2 Flow Rate 12/28/22 14:15 12/28/22 12:00 12/28/22 14:41 Room Air 12/28/22 11:32 Room Air 0 12/28/22 11:22 Oxymask 4 12/28/22 11:17 Oxymask 4 12/28/22 11:27 Room Air 0 12/28/22 11:15 Oxymask 4 12/28/22 10:33 Room Air Laboratory Results reviewed
[2022-12-28] MEDS: DONEPEZIL HCL 10 MG TAB PO SCH (22:41)
[2022-12-28] MEDS: CHOLECALCIFEROL 5,000 UNITS 125 MCG TAB PO SCH (22:41)
[2022-12-28] MEDS: FLUTICASONE FUROATE 200MCG 14 PUFFS/INHALER INH SCH (22:42)
[2022-12-28] MEDS: UMECLIDINIUM/VILANTEROL 62.5/25MCG 7 PUFFS/INHALER INH SCH (22:42)
[2022-12-29 07:45] LABS: Basophils # (auto) 0.03 K/uL (0-0.2); Basophils % (auto) 0.3 %; Eosinophils # (auto) 0.07 K/uL (0-0.50); Eosinophils % (auto) 0.8 %; Hematocrit (blood only) 26.3 % (42.0-52.0); Hemoglobin 8.2 g/dl (14.0-18.0); Immature Granulocytes # (auto) 0.08 K/uL (0.01-0.20); Immature Granulocytes % (auto) 0.9 %; Lymphocytes # (auto) 1.44 K/uL (1.2-3.4); Lymphocytes % (auto) 16.5 %; Mean Corpuscular Hemoglobin 26.5 pg (25.0-34.0); Mean Corpuscular Hgb Conc 31.2 g/dL (32.0-36.0); Mean Corpuscular Volume 85.1 fL (80.0-100.0); Mean Platelet Volume 8.8 fL (9.4-12.4); Monocytes # (auto) 0.51 K/uL (0.11-0.59); Monocytes % (auto) 5.8 %; Neutrophils % (auto) 75.7 %; Platelet Count 222 K/uL (130-400); RDW Coefficient of Variation 17.4 % (11.5-14.5); RDW Standard Deviation 49.1 fL (36.4-46.3); Red Blood Count 3.09 M/uL (4.70-6.10); White Blood Count 8.73 K/ul (4.8-10.8)
[2022-12-29 08:03] LABS: Albumin Globulin Ratio 1.3 (0.9-2); Albumin Level 2.8 gm/dl (3.4-5.0); BUN Creatinine Ratio 17.9 (10-20); Bilirubin,Total 0.4 mg/dl (0.2-1.0); Calcium 8.5 mg/dl (8.6-10.3); Creatinine Clr Calc Pharmacy 64.9 ml/min; Est GFR (African American) 59.2 ml/min; Est GFR (Non-African American) 51.1 ml/min; Globulin 2.1 gm/dl (2.5-4.0); Potassium 4.1 mmol/L (3.5-5.1); Total Protein 4.9 gm/dl (6.0-8.3)
[2022-12-29] MEDS: MULTIVITAMIN TAB PO SCH (09:23)
[2022-12-29] MEDS: MONTELUKAST SODIUM 10 MG TABLET PO SCH (09:23)
[2022-12-29] MEDS: ASCORBIC ACID 500 MG TAB PO SCH (09:24)
[2022-12-29] MEDS: HYDROCORTISONE 10 MG TAB PO SCH ×2 (09:24→17:08)
[2022-12-29] MEDS: ADVANCED PROBIOTIC 1250 MG CAPSULE PO SCH (09:24)
[2022-12-29] MEDS: TOCOPHERYL, DL-ALPHA 400 UNITS 180 MG CAP PO SCH (09:24)
[2022-12-29] MEDS: FLUTICASONE PROPIONATE NA SPR 16 GM BTL SCH (09:24)
[2022-12-29] MEDS ORDERED: LACTATED RINGER'S 1,000 ML IV SCH (11:30)
[2022-12-29] MEDS: LIDOCAINE 2% JELLY 5 ML TUBE EXT SCH ×2 (11:43→22:24)
--- NOTE | 2022-12-29 14:24 | Hospitalist Progress Note ---
Date of Service December 29, 2022 Assessment & Plan (1) Hematuria: Plan: H/O prostate cancer about 5 years ago and status post 44 radiation treatment and 4 infusion treatment. He has been complaining of hematuria for the last 3 months. Was seen by urology clinic on and the postvoid residual was 48 mL- apparent UA at that time did not show any infection. 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 Cystoscopy done in August 2022 with urethral dilation and fulguration; was being planned for hyperbaric oxygen therapy as outpatient Brought to the hospital with shortness of breath. Found to be anemic --CT ABD:The bladder is decompressed around a Devlin catheter. The wall appears thickened and there is surrounding inflammation. Correlate with clinical findings and urinalysis for evidence of cystitis. Hyperdense material is present within the bladder lumen as well as within a large bladder diverticulum. This likely represents blood clots. Again, this should be correlated with urinalysis. Consider nonemergent follow-up with urology to exclude the possibility of underlying bladder lesion. There is a punctate nonobstructing right renal calculus. Hepatomegaly and hepatic steatosis. Sigmoid diverticulosis without CT evidence of acute diverticulitis. There is an ovoid minimally complex fluid collection overlying the greater trochanter of the left proximal femur. This likely represents a seroma or hematoma. The sterility of this fluid cannot be assessed by imaging and clinical correlation will be required. -- Urine culture negative for UTI Patient underwent continuous bladder irrigation earlier in the hospitalization as per urology. Transfused 3 units of packed RBC. Devlin was removed on December 22, 2022. patient has been incontinent since Devlin removal; still has some gross hematuria. Renal ultrasound from 12/22 results reviewed; complex material in the bladder seen likely chronic blood clot Discussed with urology regarding the ultrasound findings; recommend conservative management. No plans for repeat cystoscopy. Plan for discharge to rehab, then home. Plan for outpatient hyperbaric oxygen treatment after discharging home Peer to peer done on 12/26; discussed regarding patient condition over 15 minutes. Advocated that patient will benefit from inpatient rehab stay as he has good rehab potential and needs medical supervision. However, it was denied. Case management was informed. Will need to look for SNF placement. 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 Patient has a history of DVT/PE in the past. He was on Coumadin prior to admission which was stopped due to gross hematuria/anemia. Discussion was done by previous hospitalist with Dr. Gore on 12/18/2022; trial of Lovenox 30 mg subcu was done. However, he continued to have hematuria. It was discontinued after discussion with the family and the patient. Venous duplex done on 12/26/2022shows concern for DVT extending from common femoral vein through popliteal vein as well as calf vessels. DC heparin drip. Underwent IVC filter placement on 12/28/2022. Symptomatic anemia Acute blood loss anemia due to hematuria S/P 3 unit PRBCs Monitor H&H and transfuse PRBCs as needed Hemoglobin stable Iron studies personally reviewed; consistent with iron deficiency anemia. Ferritin of 48 Completed 5-day course of IV iron on 12/28. VIOLETA on CKD III, likely prerenalresolved Creatinine bumped up to 3.14 during the hospitalization downtrended to baseline with iv hydration Renal usg as above. We will give him 500 cc of Ringer lactate today. Diarrhea Likely secondary to IV antibiotics Check stool for C. difficile if recurrence of diarrhea Received empiric IV antibiotics for cystitis Aortic stenosis: --ECHO-Echo was done on of this month showed normal LV size and systolic function with EF of 60 to 65%, no regional wall motion abnormalities, moderate concentric LVH, mild aortic stenosis, mild mitral regurgitation, mildly dilated ascending aorta of 4.4 cm, small pericardial effusion without tamponade, no significant change compared with prior study of 06/16/2001 COPD (chronic obstructive pulmonary disease): Has COPD on trilogy Follows with [facility] as outpatient No acute exacerbation Obstructive sleep apnea on trilogy CKD Monitor renal function DVT Px: SCDs. Code Status Full Code Time spent evaluating patient, direct bedside care, chart review, placing orders, interpretation of diagnostic studies, discussion with consultants, patient, and family members, as well as other required patient management activities is 60 minutes. Please note the above document was generated using voice recognition software. It may contain grammatical, syntax or spelling errors. Any formal questions or concerns about the content, text or information contained within the body of this dictation should be directly addressed to the provider for clarification Admission and Anticipated Discharge Date Admission Date: December 14, 2022 Subjective Patient seen and examined at bedside. He is lying in the bed comfortably. He reports dizziness on standing while working with physical therapist. Denies shortness of breath. Review of Systems Review of Systems: All systems reviewed & are unremarkable except as noted in Subjective Physical Exam Physical Exam: Physical Exam: Vitals signs as noted above General Appearance:Moderately built and nourished, no apparent distress Head: normocephalic, Atraumatic Eyes: normal inspection, EOMI Neck: supple, Trachea midline Respiratory/Chest: Bilateral clear breath sound. Cardiovascular: S1, S2, + murmur Abdomen/GI:Soft, Non tender, Bowel sounds present Extremities/Musculoskeletal:normal inspection, 1+ edema. Right leg swelling greater than left. Chronic venous changes presented right leg Neurologic/Psych:AAOX3, grossly no focal neurological deficits Skin: normal color, warm Results & Data Results & Data Vital Signs (Past 12 Hours) Vital Signs Temp Pulse Pulse Resp BP BP Pulse Ox 12/29/22 07:54 36.8 C 71 18 111/63 95 12/29/22 07:51 70 12/29/22 03:07 36.5 C 74 18 123/67 93 O2 Del Method 12/29/22 07:54 Room Air 12/29/22 07:51 12/29/22 03:07 Room Air Laboratory Results Laboratory Results WBC 8.73 K/ul (4.8-10.8) 12/29/22 07:26 RBC 3.09 M/uL (4.70-6.10) L 12/29/22 07:26 Hgb 8.2 g/dl (14.0-18.0) L 12/29/22 07:26 Hct 26.3 % (42.0-52.0) L 12/29/22 07:26 MCV 85.1 fL (80.0-100.0) 12/29/22 07:26 MCH 26.5 pg (25.0-34.0) 12/29/22 07:26 MCHC 31.2 g/dL (32.0-36.0) L 12/29/22 07:26 RDW Std Deviation 49.1 fL (36.4-46.3) H 12/29/22 07:26 RDW Coeff of Robert 17.4 % (11.5-14.5) H 12/29/22 07:26 Plt Count 222 K/uL (130-400) 12/29/22 07:26 MPV 8.8 fL (9.4-12.4) L 12/29/22 07:26 Immature Gran % (Auto) 0.9 % 12/29/22 07:26 Neut % (Auto) 75.7 % 12/29/22 07:26 Lymph % (Auto) 16.5 % 12/29/22 07:26 [place] % (Auto) 5.8 % 12/29/22 07:26 Eos % (Auto) 0.8 % 12/29/22 07:26 Baso % (Auto) 0.3 % 12/29/22 07:26 Neut # (Auto) 6.60 K/uL (1.40-6.50) H 12/29/22 07:26 Lymph # (Auto) 1.44 K/uL (1.2-3.4) 12/29/22 07:26 [place] # (Auto) 0.51 K/uL (0.11-0.59) 12/29/22 07:26 Eos # (Auto) 0.07 K/uL (0-0.50) 12/29/22 07:26 Baso # (Auto) 0.03 K/uL (0-0.2) 12/29/22 07:26 Immature Gran # (Auto) 0.08 K/uL (0.01-0.20) 12/29/22 07:26 Absolute Nucleated RBC 0.02 K/uL (0-0.12) 12/19/22 07:25 Nucleated RBC % (auto) 0.2 % 12/19/22 07:25 RBC Morphology Unremarkable 12/25/22 05:50 Polychromasia 1+ 12/26/22 06:54 PT 11.9 Seconds (9.0-12.0) 12/27/22 08:10 INR 1.1 (0.9-1.1) 12/27/22 08:10 APTT 31.6 Seconds (21.0-31.0) H 12/28/22 08:00 PTT Ratio 1.1 12/28/22 08:00 Sodium 141 mmol/L (136-145) 12/29/22 07:26 Potassium 4.1 mmol/L (3.5-5.1) 12/29/22 07:26 Chloride 106 mmol/L (98-107) 12/29/22 07:26 Carbon Dioxide 30 mmol/L (21-32) 12/29/22 07:26 Anion Gap 5 (3-11) 12/29/22 07:26 BUN 24 mg/dl (6-23) H 12/29/22 07:26 Creatinine 1.34 mg/dl (0.6-1.4) 12/29/22 07:26 Est Cr Clr Drug Dosing 64.9 ml/min 12/29/22 07:26 Est GFR ( Amer) 59.2 ml/min 12/29/22 07:26 Est GFR (Non-Af Amer) 51.1 ml/min 12/29/22 07:26 BUN/Creatinine Ratio 17.9 (10-20) 12/29/22 07:26 Glucose 86 mg/dl (70-99(Fasting)) 12/29/22 07:26 Calcium 8.5 mg/dl (8.6-10.3) L 12/29/22 07:26 Iron 10 mcg/dl (35-175) L 12/24/22 07:36 Unsaturated IBC 224 mcg/dl (155-355) 12/24/22 07:36 Ferritin 48.6 ng/ml (8-388) 12/24/22 07:36 Total Bilirubin 0.4 mg/dl (0.2-1.0) 12/29/22 07:26 AST 12 U/L (13-39) L 12/29/22 07:26 ALT 11 U/L (7-52) 12/29/22 07:26 Alkaline Phosphatase 59 U/L (34-104) 12/29/22 07:26 Total Protein 4.9 gm/dl (6.0-8.3) L 12/29/22 07:26 Albumin 2.8 gm/dl (3.4-5.0) L 12/29/22 07:26 Globulin 2.1 gm/dl (2.5-4.0) L 12/29/22 07:26 Albumin/Globulin Ratio 1.3 (0.9-2) 12/29/22 07:26 Urine Color Red 04/29/23 12:12 Urine Appearance Cloudy (Clear) A 12/12/22 12:12 Urine pH 6.5 (4.5-7.5) 12/12/22 12:12 Ur Specific [place] 1.016 (1.000-1.030) 12/12/22 12:12 Urine Protein 3+ (Negative) H 12/12/22 12:12 Urine Glucose (UA) Negative (Negative) 12/12/22 12:12 Urine Ketones Negative (Negative) 12/12/22 12:12 Urine Blood 3+ (Negative) H 12/12/22 12:12 Urine Nitrite Positive (Negative) A 12/12/22 12:12 Urine Bilirubin 1+ (Negative) H 12/12/22 12:12 Urine Urobilinogen Negative (Negative) 12/12/22 12:12 Ur Leukocyte Esterase 2+ (Negative) H 12/12/22 12:12 Urine RBC >30 /hpf (0-4) H 12/12/22 12:12 Urine WBC >30 /hpf (0-5) H 12/12/22 12:12 Ur Epithelial Cells 5-10 /lpf (0-5) H 12/12/22 12:12 Urine Bacteria 1+ (Negative) H 12/12/22 12:12 Stl C. diff Tox B Gene (Neg) 12/17/22 20:50 SARS-CoV-2, RNA, NAAT NEGATIVE (NEGATIVE) 12/12/22 15:01 Blood Type A Positive 12/21/22 09:38 Blood Type Recheck A Positive 12/12/22 18:29 Antibody Screen NEGATIVE 12/21/22 09:38 Crossmatch See Detail 12/21/22 09:38 Impressions Abdomen/Pelvis CT 12/12/22 12:33 CT SCAN OF THE ABDOMEN AND PELVIS WITHOUT IV CONTRAST CLINICAL HISTORY: Dysuria. COMPARISON STUDY: Abdominal CT dated 12/02/2017. TECHNIQUE: CT scan of the abdomen and pelvis is performed from the lung bases to the proximal femora. Images are reviewed in the axial, sagittal, and coronal planes. IV contrast was not administered for this examination. A dose lowering technique was utilized adhering to the principles of ALARA. CT DOSE: 1479.16 mGy.cm FINDINGS: Lung bases: The heart is normal in size noting a small pericardial effusion. The lung bases are clear. There is a small hiatal hernia. Liver: The unenhanced liver is enlarged, measuring 18.6 cm in length. The liver demonstrates diffusely diminished attenuation indicating steatosis. Fatty sparing is seen adjacent to the gallbladder fossa. There is no intrahepatic biliary ductal dilatation. Gallbladder: Unremarkable. Spleen: Normal in size and attenuation. Pancreas: The unenhanced pancreas is grossly unremarkable. Adrenal glands: Unremarkable. Kidneys: The unenhanced kidneys demonstrate cortical atrophy and are without hydronephrosis. There is a punctate nonobstructing right renal calculus. No left renal calculi are identified and there is no ureteral stone. There is no evidence of contour deforming renal mass lesion. Abdominal vasculature: The abdominal aorta is normal in course and caliber noting moderate to advanced atherosclerotic calcification. There is ectasia of the hepatic artery which measures up to 14 mm in diameter. This is similar to previous. Bowel: There is mild sigmoid diverticulosis without CT evidence of acute diverticulitis. No bowel obstruction is identified. The appendix is not identified and reported surgically absent. Peritoneum: There is no intraperitoneal free air or abdominal ascites. There is a small fat-containing umbilical hernia. Lymphadenopathy: None. Pelvic viscera: The prostate gland is diminutive and heterogeneous, and contains metallic implants. The bladder is decompressed around a Devlin catheter. The bladder wall appears thickened comment with surrounding inflammation and foci of intramural gas. There is a large posterior bladder diverticulum which measures up to 5.6 cm. Hyperdense material within the bladder and the large bladder diverticulum likely represents blood clots. An additional small bladder diverticulum is seen on the right. Skeletal structures: The skeletal structures are osteopenic. There is moderate lumbosacral spondylosis. Degenerative change and partial fusion is seen in the sacroiliac joints. No lytic or blastic lesions are seen. 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 This is similar to previous Soft tissues: There is an approximately 10 x 7.5 x 5.5 cm ovoid minimally complex fluid collection overlying the greater trochanter of the left femur seen on axial image #427. IMPRESSION: 1. The bladder is decompressed around a Devlin catheter. The wall appears thickened and there is surrounding inflammation. Correlate with clinical findings and urinalysis for evidence of cystitis. 2. Hyperdense material is present within the bladder lumen as well as within a large bladder diverticulum. This likely represents blood clots. Again, this should be correlated with urinalysis. Consider nonemergent follow-up with urology to exclude the possibility of underlying bladder lesion. 3. There is a punctate nonobstructing right renal calculus. 4. Hepatomegaly and hepatic steatosis. 5. Sigmoid diverticulosis without CT evidence of acute diverticulitis. 6. There is an ovoid minimally complex fluid collection overlying the greater trochanter of the left proximal femur. This likely represents a seroma or hematoma. The sterility of this fluid cannot be assessed by imaging and clinical correlation will be required. 7. Additional findings as above. ACT 112: Negative or not required by law. Electronically signed by: Jluis Oh M.D. 12/12/2022 1:[address] 12/16/22 14:42 CT chest diagnostic wo con CT DOSE: 1103.45 mGy.cm HISTORY: COPD. Shortness of breath. TECHNIQUE: Multiaxial CT images of the chest were performed without contrast. A dose lowering technique was utilized adhering to the principles of ALARA. COMPARISON: Chest CTA 05/22/2014. FINDINGS: The central airways are patent. No pneumothorax. No pleural effusions. Mild emphysema. There is a punctate calcified granuloma seen within the base of the left lower lobe. A few small linear densities within the right lung posteriorly. This may represent subsegmental atelectasis are scarring. No focal lung consolidations to suggest pneumonia. No evidence for pulmonary edema. No suspicious lytic or blastic osseous lesions. Limited views of the upper abdomen demonstrate hepatic steatosis and a normal spleen. The punctate stone within the right kidney. The adrenal glands are unremarkable. There is a trace pericardial effusion. The heart is normal in size. Normal esophagus. No mediastinal or hilar lymphadenopathy. Normal thyroid gland. Moderate calcified plaque within the coronary arteries and aortic valve. There is mild calcified plaque within the thoracic aorta. There is mild aneurysmal dilatation of the ascending thoracic aorta measuring up to 4.3 cm in diameter. IMPRESSION: 1. No focal lung consolidations to suggest pneumonia. 2. Mild emphysema. 3. Hepatic steatosis. 4. Right-sided nephrolithiasis. 5. Mild aneurysmal dilatation of the ascending thoracic aorta measuring up to 4.3 cm in diameter. ACT 112: Negative or not required by law. Electronically signed by: Des Harrison M.D. 12/16/2022 4:34 PM Chest X-Ray 12/17/22 16:00 XR chest 1V portable CLINICAL HISTORY: post thoracentesis COMPARISON STUDY: Chest CT December 16, 2022. FINDINGS: There is no pneumothorax. No pleural effusion is identified. Minimal left basilar opacity favors atelectasis. There is no evidence for pulmonary edema. Cardiomediastinal silhouette is stable. IMPRESSION: No acute cardiopulmonary findings. No pneumothorax. ACT 112: Negative or not required by law. Electronically signed by: Boris Keys M.D. 12/17/2022 4:36 PM Renal Ultrasound 12/22/22 16:22 US renal/blad retro comp CLINICAL HISTORY: violeta TECHNIQUE: Multiple sonographic real-time images of the kidneys and bladder were obtained. COMPARISON: Comparison is made to renal ultrasound 12/07/2017 FINDINGS: The right kidney measures 12.5 cm in length, and the left kidney measures 12.5 cm in length. The right kidney is normal in size, contour, cortical thickness, and echogenicity. No hydronephrosis is identified. No renal lesion is identified. The left kidney is normal in size, contour, cortical thickness and echogenicity. No hydronephrosis is identified. No renal lesion is identified. Complex material is seen in the bladder without vascular flow. The bladder wall appears hyperemic. No large intraluminal mass is seen. IMPRESSION: Complex material in the bladder is nonspecific but may represent chronic blood clot, clinical correlation and possible cystoscopy is recommended. ACT 112: Negative or not required by law. Electronically signed by: Alonso Fay M.D. 12/22/2022 9:30 PM Venous Doppler Study 12/26/22 13:20 US venous doppler LE BI CLINICAL HISTORY: Concern for DVT TECHNIQUE: Right lower extremity real-time compression venous ultrasound with Color Doppler imaging. Utilizing real-time ultrasonic imaging multiple real time high-resolution ultrasonic images with compression and noncompression maneuvers of the deep venous system in addition to color doppler imaging were performed from the common femoral vein through the proximal calf veins. COMPARISON: None available at the time of this dictation. FINDINGS/IMPRESSION: There is a deep venous thrombus extending from the common femoral vein, through the popliteal vein as well as the calf vessels, nearly occlusive in some areas. Pelvis is also seen to extend into the great saphenous vein. ACT 112: Negative or not required by law. Electronically signed by: Alonso Fay M.D. 12/26/2022 6:31 PM (1) Hematuria Hematuria type: gross Qualified Code(s): R31.0 - Gross hematuria
[2022-12-29] MEDS: ACETAMINOPHEN 325 MG TAB PO PRN (21:04)
[2022-12-29] MEDS: UMECLIDINIUM/VILANTEROL 62.5/25MCG 7 PUFFS/INHALER INH SCH (21:04)
[2022-12-29] MEDS: CHOLECALCIFEROL 5,000 UNITS 125 MCG TAB PO SCH (21:04)
[2022-12-29] MEDS: DONEPEZIL HCL 10 MG TAB PO SCH (21:04)
[2022-12-29] MEDS: FLUTICASONE FUROATE 200MCG 14 PUFFS/INHALER INH SCH (21:05)
[2022-12-30 08:09] LABS: Basophils # (auto) 0.04 K/uL (0-0.2); Basophils % (auto) 0.5 %; Eosinophils # (auto) 0.12 K/uL (0-0.50); Eosinophils % (auto) 1.6 %; Hematocrit (blood only) 28.7 % (42.0-52.0); Hemoglobin 8.6 g/dl (14.0-18.0); Immature Granulocytes # (auto) 0.16 K/uL (0.01-0.20); Immature Granulocytes % (auto) 2.2 %; Lymphocytes # (auto) 1.52 K/uL (1.2-3.4); Lymphocytes % (auto) 20.6 %; Mean Corpuscular Hemoglobin 26.4 pg (25.0-34.0); Mean Platelet Volume 8.7 fL (9.4-12.4); Monocytes % (auto) 6.8 %; Neutrophils # (auto) 5.03 K/uL (1.40-6.50); Neutrophils % (auto) 68.3 %; Platelet Count 222 K/uL (130-400); RDW Coefficient of Variation 17.9 % (11.5-14.5); RDW Standard Deviation 53.2 fL (36.4-46.3); Red Blood Count 3.26 M/uL (4.70-6.10); White Blood Count 7.37 K/ul (4.8-10.8)
[2022-12-30] MEDS: TOCOPHERYL, DL-ALPHA 400 UNITS 180 MG CAP PO SCH (08:13)
[2022-12-30] MEDS: MONTELUKAST SODIUM 10 MG TABLET PO SCH (08:13)
[2022-12-30] MEDS: MULTIVITAMIN TAB PO SCH (08:14)
[2022-12-30] MEDS: ASCORBIC ACID 500 MG TAB PO SCH (08:14)
[2022-12-30] MEDS: HYDROCORTISONE 10 MG TAB PO SCH ×2 (08:14→17:59)
[2022-12-30] MEDS: ADVANCED PROBIOTIC 1250 MG CAPSULE PO SCH (08:14)
[2022-12-30] MEDS: FLUTICASONE PROPIONATE NA SPR 16 GM BTL SCH (08:15)
[2022-12-30 08:25] LABS: Albumin Globulin Ratio 1.4 (0.9-2); BUN Creatinine Ratio 19.7 (10-20); Bilirubin,Total 0.4 mg/dl (0.2-1.0); Calcium 8.8 mg/dl (8.6-10.3); Creatinine Clr Calc Pharmacy 65.7 ml/min; Est GFR (African American) 60.3 ml/min; Globulin 2.1 gm/dl (2.5-4.0); Potassium 3.9 mmol/L (3.5-5.1); Total Protein 5.1 gm/dl (6.0-8.3)
[2022-12-30] MEDS: FERROUS SULFATE 325 MG TAB PO SCH ×2 (12:01→18:00)
[2022-12-30] MEDS: ACETAMINOPHEN 325 MG TAB PO PRN ×2 (12:01→23:03)
--- NOTE | 2022-12-30 16:07 | Hospitalist Progress Note ---
Date of Service December 30, 2022 Assessment & Plan (1) Hematuria: Plan: per Dr. Garcia's notes with addendum: H/O prostate cancer about 5 years ago and status post 44 radiation treatment and 4 infusion treatment. He has been complaining of hematuria for the last 3 months. Was seen by urology clinic on and the postvoid residual was 48 mL- apparent UA at that time did not show any infection. 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 Cystoscopy done in August 2022 with urethral dilation and fulguration; was being planned for hyperbaric oxygen therapy as outpatient Brought to the hospital with shortness of breath. Found to be anemic --CT ABD:The bladder is decompressed around a Devlin catheter. The wall appears thickened and there is surrounding inflammation. Correlate with clinical findi ngs and urinalysis for evidence of cystitis. Hyperdense material is present within the bladder lumen as well as within a large bladder diverticulum. This likely represents blood clots. Again, this should be correlated with urinalysis. Consider nonemergent follow-up with urology to exclude the possibility of underlying bladder lesion. There is a punctate nonobstructing right renal calculus. Hepatomegaly and hepatic steatosis. Sigmoid diverticulosis without CT evidence of acute diverticulitis. There is an ovoid minimally complex fluid collection overlying the greater trochanter of the left proximal femur. This likely represents a seroma or hematoma. The sterility of this fluid cannot be assessed by imaging and clinical correlation will be required. -- Urine culture negative for UTI Patient underwent continuous bladder irrigation earlier in the hospitalization as per urology. Transfused 3 units of packed RBC. Devlin was removed on December 22, 2022. patient has been incontinent since Devlin removal; still has some gross hematuria. Renal ultrasound from 12/22 results reviewed; complex material in the bladder seen likely chronic blood clot Discussed with urology regarding the ultrasound findings; recommend conservative management. No plans for repeat cystoscopy. Plan for discharge to rehab, then home. Plan for outpatient hyperbaric oxygen treatment after discharging home Peer to peer done on 12/26; discussed regarding patient condition over 15 minutes. Advocated that patient will benefit from inpatient rehab stay as he has good rehab potential and needs medical supervision. However, it was denied. Case management was informed. Will need to look for SNF placement. 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 Patient has a history of DVT/PE in the past. He was on Coumadin prior to admission which was stopped due to gross hematuria/anemia. Discussion was done by previous hospitalist with Dr. Gore on 12/18/2022; trial of Lovenox 30 mg subcu was done. However, he continued to have hematuria. It was discontinued after discussion with the family and the patient. Venous duplex done on 12/26/2022shows concern for DVT extending from common femoral vein through popliteal vein as well as calf vessels. DC heparin drip. Underwent IVC filter placement on 12/28/2022. 12/30 stable Symptomatic anemia Acute blood loss anemia due to hematuria S/P 3 unit PRBCs Monitor H&H and transfuse PRBCs as needed Hemoglobin stable Iron studies personally reviewed; consistent with iron deficiency anemia. Ferritin of 48 Completed 5-day course of IV iron on 12/28. 12/30 Hg stable VIOLETA on CKD III, likely prerenalresolved Creatinine bumped up to 3.14 during the hospitalization downtrended to baseline with iv hydration Renal usg as above. 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 Code Status Full Code Disposition transition to [facility] when accepted plan of care discussed with patient and his Ivet in detail and at length all questions answered they are understanding, agreeable, comfortable with the plan of care Venkat Malin MD Admission and Anticipated Discharge Date Admission Date: December 14, 2022 Subjective ff up for hematuria, etc seen resting in bed, comfortable in good spirits states he feels fine overall no chest pain, dyspnea, palpitations, dizziness no hematuria noted no other symptoms Review of Systems Review of Systems: all noted and negative except for above Physical Exam Physical Exam: General- oriented x 3, not in distress, speaks in sentences with no effort or accessory muscle use Eyes- anicteric Neck- no JVD Lungs- clear breath sounds bilaterally, no rales/wheezes Heart- normal rate, regular rhythm; no murmurs Abdomen- normal bowel sounds, nondistended, soft, nontender R inguinal region- very faint erythema no discharge/tenderness Extremities- no pretibial edema, no calf tenderness Neuro- alert, oriented x 3; no gross focal neurologic deficits Skin- warm & dry Results & Data Results & Data Vital Signs (Past 12 Hours) Vital Signs Temp Pulse Pulse Resp BP Pulse Ox O2 Del Method 12/30/22 15:50 36.6 C 80 16 109/67 95 Room Air 12/30/22 11:00 36.6 C 67 16 97/57 L 96 Room Air 12/30/22 07:54 36.9 C 71 16 125/69 95 Room Air 12/30/22 07:19 64 all noted and reviewed including below (1) Hematuria Hematuria type: gross Qualified Code(s): R31.0 - Gross hematuria
[2022-12-30] MEDS: NYSTATIN POWDER 15GM BTL EXT SCH ×2 (16:21→23:03)
[2022-12-30] MEDS: DONEPEZIL HCL 10 MG TAB PO SCH (23:03)
[2022-12-30] MEDS: CHOLECALCIFEROL 5,000 UNITS 125 MCG TAB PO SCH (23:03)
[2022-12-30] MEDS: LIDOCAINE 2% JELLY 5 ML TUBE EXT SCH (23:04)
[2022-12-30] MEDS: FLUTICASONE FUROATE 200MCG 14 PUFFS/INHALER INH SCH (23:04)
[2022-12-30] MEDS: UMECLIDINIUM/VILANTEROL 62.5/25MCG 7 PUFFS/INHALER INH SCH (23:04)
[2022-12-31] MEDS: oxyCODONE HCL IR 5 MG TAB (IMMEDIATE RELEASE) PO PRN ×2 (03:00→22:46)
[2022-12-31] MEDS: ACETAMINOPHEN 325 MG TAB PO PRN ×2 (06:07→22:46)
[2022-12-31] MEDS: FERROUS SULFATE 325 MG TAB PO SCH ×2 (08:21→22:47)
[2022-12-31] MEDS: ADVANCED PROBIOTIC 1250 MG CAPSULE PO SCH (08:21)
[2022-12-31] MEDS: HYDROCORTISONE 10 MG TAB PO SCH ×2 (08:22→22:48)
[2022-12-31] MEDS: MONTELUKAST SODIUM 10 MG TABLET PO SCH (08:23)
[2022-12-31] MEDS: ASCORBIC ACID 500 MG TAB PO SCH (08:23)
[2022-12-31] MEDS: MULTIVITAMIN TAB PO SCH (08:23)
[2022-12-31] MEDS: TOCOPHERYL, DL-ALPHA 400 UNITS 180 MG CAP PO SCH (08:23)
[2022-12-31] MEDS: NYSTATIN POWDER 15GM BTL EXT SCH ×2 (08:27→22:49)
[2022-12-31] MEDS: FLUTICASONE PROPIONATE NA SPR 16 GM BTL SCH (08:27)
--- NOTE | 2022-12-31 15:05 | Hospitalist Progress Note ---
Date of Service December 31, 2022 Assessment & Plan (1) Hematuria: Plan: per Dr. Garcia's notes with addendum: H/O prostate cancer about 5 years ago and status post 44 radiation treatment and 4 infusion treatment. He has been complaining of hematuria for the last 3 months. Was seen by urology clinic on and the postvoid residual was 48 mL- apparent UA at that time did not show any infection. 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 Cystoscopy done in August 2022 with urethral dilation and fulguration; was being planned for hyperbaric oxygen therapy as outpatient Brought to the hospital with shortness of breath. Found to be anemic --CT ABD:The bladder is decompressed around a Devlin catheter. The wall appears thickened and there is surrounding inflammation. Correlate with clinical findi ngs and urinalysis for evidence of cystitis. Hyperdense material is present within the bladder lumen as well as within a large bladder diverticulum. This likely represents blood clots. Again, this should be correlated with urinalysis. Consider nonemergent follow-up with urology to exclude the possibility of underlying bladder lesion. There is a punctate nonobstructing right renal calculus. Hepatomegaly and hepatic steatosis. Sigmoid diverticulosis without CT evidence of acute diverticulitis. There is an ovoid minimally complex fluid collection overlying the greater trochanter of the left proximal femur. This likely represents a seroma or hematoma. The sterility of this fluid cannot be assessed by imaging and clinical correlation will be required. -- Urine culture negative for UTI Patient underwent continuous bladder irrigation earlier in the hospitalization as per urology. Transfused 3 units of packed RBC. Devlin was removed on December 22, 2022. patient has been incontinent since Devlin removal; still has some gross hematuria. Renal ultrasound from 12/22 results reviewed; complex material in the bladder seen likely chronic blood clot Discussed with urology regarding the ultrasound findings; recommend conservative management. No plans for repeat cystoscopy. Plan for discharge to rehab, then home. Plan for outpatient hyperbaric oxygen treatment after discharging home Peer to peer done on 12/26; discussed regarding patient condition over 15 minutes. Advocated that patient will benefit from inpatient rehab stay as he has good rehab potential and needs medical supervision. However, it was denied. Case management was informed. Will need to look for SNF placement. 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 Patient has a history of DVT/PE in the past. He was on Coumadin prior to admission which was stopped due to gross hematuria/anemia. Discussion was done by previous hospitalist with Dr. Gore on 12/18/2022; trial of Lovenox 30 mg subcu was done. However, he continued to have hematuria. It was discontinued after discussion with the family and the patient. Venous duplex done on 12/26/2022shows concern for DVT extending from common femoral vein through popliteal vein as well as calf vessels. DC heparin drip. Underwent IVC filter placement on 12/28/2022. 12/31 stable Symptomatic anemia Acute blood loss anemia due to hematuria S/P 3 unit PRBCs Monitor H&H and transfuse PRBCs as needed Hemoglobin stable Iron studies personally reviewed; consistent with iron deficiency anemia. Ferritin of 48 Completed 5-day course of IV iron on 12/28. 12/31 Hg stable repeat Hg tomorrow VIOLETA on CKD III, likely prerenalresolved Creatinine bumped up to 3.14 during the hospitalization downtrended to baseline with iv hydration Renal usg as above. 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 Code Status Full Code Disposition transition to SNF when accepted Admission and Anticipated Discharge Date Admission Date: December 14, 2022 Subjective Follow-up for follow-up for hematuria, etc. Seen sitting up in bed, comfortable, not in distress Somewhat upset, frustrated because [facility] will have no bed until next week and he might need to go to [facility] Otherwise feels fine, no other symptoms No hematuria noted Having some urinary incontinence No chest pain, palpitations, dizziness Review of Systems Review of Systems: all noted and negative except for above Physical Exam Physical Exam: General- oriented x 3, not in distress, speaks in sentences with no effort or accessory muscle use Eyes- anicteric Neck- no JVD Lungs- clear breath sounds bilaterally, no rales/wheezes Heart- normal rate, regular rhythm; no murmurs Abdomen- normal bowel sounds, nondistended, soft, nontender Extremities- no pretibial edema, no calf tenderness Neuro- alert, oriented x 3; no gross focal neurologic deficits Skin- warm & dry Results & Data Results & Data Vital Signs (Past 12 Hours) Vital Signs Temp Pulse Pulse Resp BP Pulse Ox O2 Del Method 12/31/22 11:33 36.8 C 71 16 117/72 95 Room Air 12/31/22 08:05 62 12/31/22 07:43 36.4 C L 66 18 121/67 95 Room Air 12/31/22 03:22 36.6 C 62 20 138/78 99 Room Air (1) Hematuria Hematuria type: gross Qualified Code(s): R31.0 - Gross hematuria
[2022-12-31] MEDS: POLYETHYLENE (MIRALAX) 17 GM PACK PO PRN (22:46)
[2022-12-31] MEDS: MELATONIN 3 MG TAB PO PRN (22:46)
[2022-12-31] MEDS: PHENAZOPYRIDINE HCL 100 MG TAB PO PRN (22:47)
[2022-12-31] MEDS: CHOLECALCIFEROL 5,000 UNITS 125 MCG TAB PO SCH (22:48)
[2022-12-31] MEDS: DONEPEZIL HCL 10 MG TAB PO SCH (22:48)
[2022-12-31] MEDS: FLUTICASONE FUROATE 200MCG 14 PUFFS/INHALER INH SCH (22:49)
[2022-12-31] MEDS: UMECLIDINIUM/VILANTEROL 62.5/25MCG 7 PUFFS/INHALER INH SCH (22:49)
[2023-01-01 07:54] LABS: Basophils # (auto) 0.04 K/uL (0-0.2); Basophils % (auto) 0.6 %; Eosinophils # (auto) 0.09 K/uL (0-0.50); Eosinophils % (auto) 1.3 %; Hematocrit (blood only) 29.2 % (42.0-52.0); Immature Granulocytes # (auto) 0.06 K/uL (0.01-0.20); Immature Granulocytes % (auto) 0.8 %; Lymphocytes # (auto) 1.37 K/uL (1.2-3.4); Lymphocytes % (auto) 19.1 %; Mean Corpuscular Hemoglobin 26.9 pg (25.0-34.0); Mean Corpuscular Hgb Conc 30.8 g/dL (32.0-36.0); Mean Corpuscular Volume 87.2 fL (80.0-100.0); Mean Platelet Volume 8.9 fL (9.4-12.4); Neutrophils # (auto) 5.11 K/uL (1.40-6.50); Neutrophils % (auto) 71.2 %; Platelet Count 238 K/uL (130-400); RDW Coefficient of Variation 18.6 % (11.5-14.5); RDW Standard Deviation 58.4 fL (36.4-46.3); Red Blood Count 3.35 M/uL (4.70-6.10); White Blood Count 7.17 K/ul (4.8-10.8)
[2023-01-01 08:06] LABS: BUN Creatinine Ratio 18.7 (10-20); Calcium 8.8 mg/dl (8.6-10.3); Creatinine Clr Calc Pharmacy 56.2 ml/min; Est GFR (African American) 49.7 ml/min; Est GFR (Non-African American) 42.8 ml/min; Potassium 4.3 mmol/L (3.5-5.1)
[2023-01-01] MEDS: PHENAZOPYRIDINE HCL 100 MG TAB PO PRN ×2 (09:05→21:54)
[2023-01-01] MEDS: FERROUS SULFATE 325 MG TAB PO SCH ×2 (09:06→17:47)
[2023-01-01] MEDS: MULTIVITAMIN TAB PO SCH (09:06)
[2023-01-01] MEDS: ASCORBIC ACID 500 MG TAB PO SCH (09:06)
[2023-01-01] MEDS: MONTELUKAST SODIUM 10 MG TABLET PO SCH (09:07)
[2023-01-01] MEDS: FLUTICASONE PROPIONATE NA SPR 16 GM BTL SCH (09:07)
[2023-01-01] MEDS: TOCOPHERYL, DL-ALPHA 400 UNITS 180 MG CAP PO SCH (09:07)
[2023-01-01] MEDS: ADVANCED PROBIOTIC 1250 MG CAPSULE PO SCH (09:07)
[2023-01-01] MEDS: NYSTATIN POWDER 15GM BTL EXT SCH ×2 (09:08→21:54)
[2023-01-01] MEDS ORDERED: SODIUM CHLORIDE 0.9% 1000ML 1,000 ML IV SCH (09:30)
[2023-01-01] MEDS: HYDROCORTISONE 10 MG TAB PO SCH ×2 (11:06→17:47)
[2023-01-01] MEDS: ACETAMINOPHEN 325 MG TAB PO PRN ×2 (13:57→22:00)
[2023-01-01] MEDS: LIDOCAINE 2% JELLY 5 ML TUBE EXT SCH (13:57)
--- NOTE | 2023-01-01 16:47 | Hospitalist Progress Note ---
Date of Service January 01, 2023 Assessment & Plan (1) Hematuria: Plan: per Dr. Garcia's notes with addendum: H/O prostate cancer about 5 years ago and status post 44 radiation treatment and 4 infusion treatment. He has been complaining of hematuria for the last 3 months. Was seen by urology clinic on and the postvoid residual was 48 mL- apparent UA at that time did not show any infection. 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 Cystoscopy done in August 2022 with urethral dilation and fulguration; was being planned for hyperbaric oxygen therapy as outpatient Brought to the hospital with shortness of breath. Found to be anemic --CT ABD:The bladder is decompressed around a Devlin catheter. The wall appears thickened and there is surrounding inflammation. Correlate with clinical findi ngs and urinalysis for evidence of cystitis. Hyperdense material is present within the bladder lumen as well as within a large bladder diverticulum. This likely represents blood clots. Again, this should be correlated with urinalysis. Consider nonemergent follow-up with urology to exclude the possibility of underlying bladder lesion. There is a punctate nonobstructing right renal calculus. Hepatomegaly and hepatic steatosis. Sigmoid diverticulosis without CT evidence of acute diverticulitis. There is an ovoid minimally complex fluid collection overlying the greater trochanter of the left proximal femur. This likely represents a seroma or hematoma. The sterility of this fluid cannot be assessed by imaging and clinical correlation will be required. -- Urine culture negative for UTI Patient underwent continuous bladder irrigation earlier in the hospitalization as per urology. Transfused 3 units of packed RBC. Devlin was removed on December 22, 2022. patient has been incontinent since Devlin removal; still has some gross hematuria. Renal ultrasound from 12/22 results reviewed; complex material in the bladder seen likely chronic blood clot Discussed with urology regarding the ultrasound findings; recommend conservative management. No plans for repeat cystoscopy. Plan for discharge to rehab, then home. Plan for outpatient hyperbaric oxygen treatment after discharging home Peer to peer done on 12/26; discussed regarding patient condition over 15 minutes. Advocated that patient will benefit from inpatient rehab stay as he has good rehab potential and needs medical supervision. However, it was denied. Case management was informed. Will need to look for SNF placement. 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 Patient has a history of DVT/PE in the past. He was on Coumadin prior to admission which was stopped due to gross hematuria/anemia. Discussion was done by previous hospitalist with Dr. Gore on 12/18/2022; trial of Lovenox 30 mg subcu was done. However, he continued to have hematuria. It was discontinued after discussion with the family and the patient. Venous duplex done on 12/26/2022shows concern for DVT extending from common femoral vein through popliteal vein as well as calf vessels. DC heparin drip. Underwent IVC filter placement on 12/28/2022. 01/01 stable Symptomatic anemia Acute blood loss anemia due to hematuria S/P 3 unit PRBCs Monitor H&H and transfuse PRBCs as needed Hemoglobin stable Iron studies personally reviewed; consistent with iron deficiency anemia. Ferritin of 48 Completed 5-day course of IV iron on 12/28. 01/01 Hg stable- 9 VIOLETA on CKD III, likely prerenalresolved Creatinine bumped up to 3.14 during the hospitalization downtrended to baseline with iv hydration Renal usg as above. 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 Code Status Full Code Disposition transition to SNF when accepted plan of care discussed with patient and his Noris over the phone in detail and at length all questions answered they are understanding, agreeable, comfortable with the plan of care Admission and Anticipated Discharge Date Admission Date: December 14, 2022 Subjective ff up for hematuria, etc seen resting in bed, comfortable states he feels fine overall no chest pain, dyspnea, palpitations, dizziness no hematuria motivated to participate with PT no other new symptoms Review of Systems Review of Systems: all noted and negative except for above Physical Exam Physical Exam: General- oriented x 3, not in distress, speaks in sentences with no effort or accessory muscle use Eyes- anicteric Neck- no JVD Lungs- clear breath sounds bilaterally, no rales/wheezes Heart- normal rate, regular rhythm; no murmurs Abdomen- normal bowel sounds, nondistended, soft, nontender Extremities- no pretibial edema, no calf tenderness Neuro- alert, oriented x 3; no gross focal neurologic deficits Skin- warm & dry Results & Data Results & Data Vital Signs (Past 12 Hours) Vital Signs Temp Pulse Pulse Resp BP Pulse Ox O2 Del Method 01/01/23 15:40 36.9 C 70 16 120/68 94 Room Air 01/01/23 07:00 68 01/01/23 11:04 36.8 C 70 18 110/64 97 Room Air 01/01/23 07:32 36.4 C L 58 L 18 128/74 98 Room Air all noted and reviewed including below (1) Hematuria Hematuria type: gross Qualified Code(s): R31.0 - Gross hematuria
[2023-01-01] MEDS ORDERED: Nursing to Pharmacy Communication SCH (18:00)
[2023-01-01] MEDS: CHOLECALCIFEROL 5,000 UNITS 125 MCG TAB PO SCH (21:53)
[2023-01-01] MEDS: DONEPEZIL HCL 10 MG TAB PO SCH (21:54)
[2023-01-01] MEDS: FLUTICASONE FUROATE 200MCG 14 PUFFS/INHALER INH SCH (21:54)
[2023-01-01] MEDS: UMECLIDINIUM/VILANTEROL 62.5/25MCG 7 PUFFS/INHALER INH SCH (21:54)
[2023-01-01] MEDS: POLYETHYLENE (MIRALAX) 17 GM PACK PO PRN (22:00)
[2023-01-01] MEDS: oxyCODONE HCL IR 5 MG TAB (IMMEDIATE RELEASE) PO PRN (22:00)
[2023-01-01] MEDS: MELATONIN 3 MG TAB PO PRN (22:00)
[2023-01-02] MEDS: FERROUS SULFATE 325 MG TAB PO SCH ×2 (09:21→16:29)
[2023-01-02] MEDS: ASCORBIC ACID 500 MG TAB PO SCH (09:21)
[2023-01-02] MEDS: TOCOPHERYL, DL-ALPHA 400 UNITS 180 MG CAP PO SCH (09:21)
[2023-01-02] MEDS: PHENAZOPYRIDINE HCL 100 MG TAB PO PRN ×2 (09:21→22:08)
[2023-01-02] MEDS: MONTELUKAST SODIUM 10 MG TABLET PO SCH (09:22)
[2023-01-02] MEDS: ADVANCED PROBIOTIC 1250 MG CAPSULE PO SCH (09:22)
[2023-01-02] MEDS: MULTIVITAMIN TAB PO SCH (09:22)
[2023-01-02] MEDS: HYDROCORTISONE 10 MG TAB PO SCH ×2 (09:24→16:29)
[2023-01-02] MEDS: FLUTICASONE PROPIONATE NA SPR 16 GM BTL SCH (09:25)
[2023-01-02] MEDS: NYSTATIN POWDER 15GM BTL EXT SCH ×2 (10:29→22:07)
[2023-01-02 10:43] LABS: BUN Creatinine Ratio 18.7 (10-20); Calcium 8.5 mg/dl (8.6-10.3); Creatinine Clr Calc Pharmacy 58.4 ml/min; Est GFR (African American) 51.7 ml/min; Est GFR (Non-African American) 44.6 ml/min; Potassium 3.9 mmol/L (3.5-5.1)
[2023-01-02] MEDS: LIDOCAINE 2% JELLY 5 ML TUBE EXT SCH (12:12)
[2023-01-02] MEDS: ACETAMINOPHEN 325 MG TAB PO PRN ×2 (13:45→22:08)
--- NOTE | 2023-01-02 16:19 | Hospitalist Progress Note ---
Date of Service January 02, 2023 Assessment & Plan (1) Hematuria: Plan: per Dr. Garcia's notes with addendum: H/O prostate cancer about 5 years ago and status post 44 radiation treatment and 4 infusion treatment. He has been complaining of hematuria for the last 3 months. Was seen by urology clinic on and the postvoid residual was 48 mL- apparent UA at that time did not show any infection. 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 Cystoscopy done in August 2022 with urethral dilation and fulguration; was being planned for hyperbaric oxygen therapy as outpatient Brought to the hospital with shortness of breath. Found to be anemic --CT ABD:The bladder is decompressed around a Devlin catheter. The wall appears thickened and there is surrounding inflammation. Correlate with clinical findi ngs and urinalysis for evidence of cystitis. Hyperdense material is present within the bladder lumen as well as within a large bladder diverticulum. This likely represents blood clots. Again, this should be correlated with urinalysis. Consider nonemergent follow-up with urology to exclude the possibility of underlying bladder lesion. There is a punctate nonobstructing right renal calculus. Hepatomegaly and hepatic steatosis. Sigmoid diverticulosis without CT evidence of acute diverticulitis. There is an ovoid minimally complex fluid collection overlying the greater trochanter of the left proximal femur. This likely represents a seroma or hematoma. The sterility of this fluid cannot be assessed by imaging and clinical correlation will be required. -- Urine culture negative for UTI Patient underwent continuous bladder irrigation earlier in the hospitalization as per urology. Transfused 3 units of packed RBC. Devlin was removed on December 22, 2022. patient has been incontinent since Devlin removal; still has some gross hematuria. Renal ultrasound from 12/22 results reviewed; complex material in the bladder seen likely chronic blood clot Discussed with urology regarding the ultrasound findings; recommend conservative management. No plans for repeat cystoscopy. Plan for discharge to rehab, then home. Plan for outpatient hyperbaric oxygen treatment after discharging home Peer to peer done on 12/26; discussed regarding patient condition over 15 minutes. Advocated that patient will benefit from inpatient rehab stay as he has good rehab potential and needs medical supervision. However, it was denied. Case management was informed. Will need to look for SNF placement. 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 Patient has a history of DVT/PE in the past. He was on Coumadin prior to admission which was stopped due to gross hematuria/anemia. Discussion was done by previous hospitalist with Dr. Gore on 12/18/2022; trial of Lovenox 30 mg subcu was done. However, he continued to have hematuria. It was discontinued after discussion with the family and the patient. Venous duplex done on 12/26/2022shows concern for DVT extending from common femoral vein through popliteal vein as well as calf vessels. DC heparin drip. Underwent IVC filter placement on 12/28/2022. 01/02 stable (+) edema- elevate legs may need Lasix PRN Symptomatic anemia Acute blood loss anemia due to hematuria S/P 3 unit PRBCs Monitor H&H and transfuse PRBCs as needed Hemoglobin stable Iron studies personally reviewed; consistent with iron deficiency anemia. Ferritin of 48 Completed 5-day course of IV iron on 12/28. 01/02 Hg stable- 9 VIOLETA on CKD III, likely prerenalresolved Creatinine bumped up to 3.14 during the hospitalization downtrended to baseline with iv hydration Renal usg as above. 01/02 crea 1.5 stable Diarrhea Likely secondary to IV antibiotics resolved Aortic stenosis: --ECHO-Echo was done on of this month showed normal LV size and systolic function with EF of 60 to 65%, no regional wall motion abnormalities, moderate concentric LVH, mild aortic stenosis, mild mitral regurgitation, mildly dilated ascending aorta of 4.4 cm, small pericardial effusion without tamponade, no significant change compared with prior study of 06/16/2001 COPD (chronic obstructive pulmonary disease): Has COPD on trilogy Follows with [employer] as outpatient No acute exacerbation Obstructive sleep apnea on trilogy CKD Monitor renal function DVT Px: SCDs. Code Status Full Code Disposition transition to SNF when accepted plan of care discussed with patient all questions answered he is understanding, agreeable, comfortable with the plan of care Admission and Anticipated Discharge Date Admission Date: December 14, 2022 Subjective ff up for hematuria, etc seen resting in bed, comfortable states he feels fine overall had some penile pain earlier- mild no hematuria no chest pain, dyspnea, palpitations, dizziness no other symptoms Review of Systems Review of Systems: all noted and negative except for above Physical Exam Physical Exam: General- oriented x 3, not in distress, speaks in sentences with no effort or accessory muscle use Eyes- anicteric Neck- no JVD Lungs- clear BS BL Heart- normal rate, regular rhythm; no murmurs Abdomen- normal bowel sounds, nondistended, soft, nontender Extremities- mild lower ext edema, no calf tenderness Neuro- alert, oriented x 3; no gross focal neurologic deficits Skin- warm & dry Results & Data Results & Data Vital Signs (Past 12 Hours) Vital Signs Temp Pulse Pulse Resp BP BP Pulse Ox 01/02/23 15:47 36.5 C 64 18 122/75 99 01/02/23 15:31 74 01/02/23 11:38 36.6 C 64 18 126/71 97 01/02/23 06:45 66 01/02/23 06:40 36.4 C L 66 18 115/69 95 O2 Del Method 01/02/23 15:47 Room Air 01/02/23 15:31 01/02/23 11:38 Room Air 01/02/23 06:45 01/02/23 06:40 Room Air all noted and reviewed including below (1) Hematuria Hematuria type: gross Qualified Code(s): R31.0 - Gross hematuria
[2023-01-02] MEDS: FLUTICASONE FUROATE 200MCG 14 PUFFS/INHALER INH SCH (22:06)
[2023-01-02] MEDS: oxyCODONE HCL IR 5 MG TAB (IMMEDIATE RELEASE) PO PRN (22:07)
[2023-01-02] MEDS: UMECLIDINIUM/VILANTEROL 62.5/25MCG 7 PUFFS/INHALER INH SCH (22:07)
[2023-01-02] MEDS: POLYETHYLENE (MIRALAX) 17 GM PACK PO PRN (22:07)
[2023-01-02] MEDS: DONEPEZIL HCL 10 MG TAB PO SCH (22:07)
[2023-01-02] MEDS: CHOLECALCIFEROL 5,000 UNITS 125 MCG TAB PO SCH (22:08)
[2023-01-03] MEDS: ASCORBIC ACID 500 MG TAB PO SCH (07:43)
[2023-01-03] MEDS: FERROUS SULFATE 325 MG TAB PO SCH ×2 (07:43→17:26)
[2023-01-03] MEDS: MONTELUKAST SODIUM 10 MG TABLET PO SCH (07:44)
[2023-01-03] MEDS: ADVANCED PROBIOTIC 1250 MG CAPSULE PO SCH (07:44)
[2023-01-03] MEDS: MULTIVITAMIN TAB PO SCH (07:44)
[2023-01-03] MEDS: NYSTATIN POWDER 15GM BTL EXT SCH ×2 (07:46→19:47)
[2023-01-03] MEDS: TOCOPHERYL, DL-ALPHA 400 UNITS 180 MG CAP PO SCH (07:46)
[2023-01-03] MEDS: HYDROCORTISONE 10 MG TAB PO SCH ×2 (07:46→17:26)
[2023-01-03] MEDS: FLUTICASONE PROPIONATE NA SPR 16 GM BTL SCH (07:46)
[2023-01-03 09:50] LABS: BUN Creatinine Ratio 17.6 (10-20); Calcium 8.7 mg/dl (8.6-10.3); Creatinine Clr Calc Pharmacy 59.2 ml/min; Est GFR (African American) 52.5 ml/min; Est GFR (Non-African American) 45.3 ml/min; Potassium 3.6 mmol/L (3.5-5.1)
[2023-01-03] MEDS: LIDOCAINE 2% JELLY 5 ML TUBE EXT SCH (11:10)
[2023-01-03] MEDS: POLYETHYLENE (MIRALAX) 17 GM PACK PO PRN (13:57)
[2023-01-03] MEDS ORDERED: FUROSEMIDE 40 MG TAB PO ONE (15:27)
--- NOTE | 2023-01-03 16:38 | Hospitalist Progress Note ---
Date of Service January 03, 2023 Assessment & Plan (1) Hematuria: Plan: per Dr. Garcia's notes with addendum: H/O prostate cancer about 5 years ago and status post 44 radiation treatment and 4 infusion treatment. He has been complaining of hematuria for the last 3 months. Was seen by urology clinic on and the postvoid residual was 48 mL- apparent UA at that time did not show any infection. 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 Cystoscopy done in August 2022 with urethral dilation and fulguration; was being planned for hyperbaric oxygen therapy as outpatient Brought to the hospital with shortness of breath. Found to be anemic --CT ABD:The bladder is decompressed around a Devlin catheter. The wall appears thickened and there is surrounding inflammation. Correlate with clinical findi ngs and urinalysis for evidence of cystitis. Hyperdense material is present within the bladder lumen as well as within a large bladder diverticulum. This likely represents blood clots. Again, this should be correlated with urinalysis. Consider nonemergent follow-up with urology to exclude the possibility of underlying bladder lesion. There is a punctate nonobstructing right renal calculus. Hepatomegaly and hepatic steatosis. Sigmoid diverticulosis without CT evidence of acute diverticulitis. There is an ovoid minimally complex fluid collection overlying the greater trochanter of the left proximal femur. This likely represents a seroma or hematoma. The sterility of this fluid cannot be assessed by imaging and clinical correlation will be required. -- Urine culture negative for UTI Patient underwent continuous bladder irrigation earlier in the hospitalization as per urology. Transfused 3 units of packed RBC. Devlin was removed on December 22, 2022. patient has been incontinent since Devlin removal; still has some gross hematuria. Renal ultrasound from 12/22 results reviewed; complex material in the bladder seen likely chronic blood clot Discussed with urology regarding the ultrasound findings; recommend conservative management. No plans for repeat cystoscopy. Plan for discharge to rehab, then home. Plan for outpatient hyperbaric oxygen treatment after discharging home Peer to peer done on 12/26; discussed regarding patient condition over 15 minutes. Advocated that patient will benefit from inpatient rehab stay as he has good rehab potential and needs medical supervision. However, it was denied. Case management was informed. Will need to look for SNF placement. 01/03 Hg stable no recurrence of hematuria Acute on chronic DVT of right lower leg status post IVC filter placement on 12/28/2022. Patient has a history of DVT/PE in the past. He was on Coumadin prior to admission which was stopped due to gross hematuria/anemia. Discussion was done by previous hospitalist with Dr. Gore on 12/18/2022; trial of Lovenox 30 mg subcu was done. However, he continued to have hematuria. It was discontinued after discussion with the family and the patient. Venous duplex done on 12/26/2022shows concern for DVT extending from common femoral vein through popliteal vein as well as calf vessels. DC heparin drip. Underwent IVC filter placement on 12/28/2022. 01/03 stable (+) edema- elevate legs Lasix 20mg po given Symptomatic anemia Acute blood loss anemia due to hematuria S/P 3 unit PRBCs Monitor H&H and transfuse PRBCs as needed Hemoglobin stable Iron studies personally reviewed; consistent with iron deficiency anemia. Ferritin of 48 Completed 5-day course of IV iron on 12/28. 01/03 Hg stable- 9 VIOLETA on CKD III, likely prerenalresolved Creatinine bumped up to 3.14 during the hospitalization downtrended to baseline with iv hydration Renal usg as above. 01/03 crea 1.4 stable Diarrhea Likely secondary to IV antibiotics resolved Aortic stenosis: --ECHO-Echo was done on of this month showed normal LV size and systolic function with EF of 60 to 65%, no regional wall motion abnormalities, moderate concentric LVH, mild aortic stenosis, mild mitral regurgitation, mildly dilated ascending aorta of 4.4 cm, small pericardial effusion without tamponade, no significant change compared with prior study of 06/16/2001 COPD (chronic obstructive pulmonary disease): Has COPD on trilogy Follows with [employer] as outpatient No acute exacerbation Obstructive sleep apnea on trilogy CKD Monitor renal function DVT Px: SCDs. Code Status Full Code Disposition transition to SNF when accepted plan of care discussed with patient all questions answered he is understanding, agreeable, comfortable with the plan of care Admission and Anticipated Discharge Date Admission Date: December 14, 2022 Subjective ff up for hematuria, etc seen resting in bed, comfortable states he feels overall no abdominal pain, recurrence of hematuria no chest pain, dyspnea, palpitations, dizziness no leg pain no other symptoms Review of Systems Review of Systems: all noted and negative except for above Physical Exam Physical Exam: General- oriented x 3, not in distress, speaks in sentences with no effort or accessory muscle use Eyes- anicteric Neck- no JVD Lungs- clear BS BL Heart- normal rate, regular rhythm; no murmurs Abdomen- normal bowel sounds, nondistended, soft, nontender Extremities- grade 1 lower leg edema, no calf tenderness no erythema/warmth/tenderness Neuro- alert, oriented x 3; no gross focal neurologic deficits Skin- warm & dry Results & Data Results & Data Vital Signs (Past 12 Hours) Vital Signs Temp Pulse Pulse Resp BP BP Pulse Ox 01/03/23 11:28 36.5 C 64 H 134/81 97 01/03/23 07:54 36.5 C 61 18 124/78 97 01/03/23 07:05 57 L O2 Del Method 01/03/23 11:28 Room Air 01/03/23 07:54 Room Air 01/03/23 07:05 all noted and reviewed including below (1) Hematuria Hematuria type: gross Qualified Code(s): R31.0 - Gross hematuria
[2023-01-03] MEDS: ACETAMINOPHEN 325 MG TAB PO PRN (19:44)
[2023-01-03] MEDS: DONEPEZIL HCL 10 MG TAB PO SCH (19:45)
[2023-01-03] MEDS: CHOLECALCIFEROL 5,000 UNITS 125 MCG TAB PO SCH (19:46)
[2023-01-03] MEDS: FLUTICASONE FUROATE 200MCG 14 PUFFS/INHALER INH SCH (19:46)
[2023-01-03] MEDS: UMECLIDINIUM/VILANTEROL 62.5/25MCG 7 PUFFS/INHALER INH SCH (19:47)
[2023-01-03] MEDS: oxyCODONE HCL IR 5 MG TAB (IMMEDIATE RELEASE) PO PRN (22:10)
[2023-01-04] MEDS: ACETAMINOPHEN 325 MG TAB PO PRN (03:26)
[2023-01-04 07:07] LABS: BUN Creatinine Ratio 15.2 (10-20); Calcium 8.7 mg/dl (8.6-10.3); Creatinine Clr Calc Pharmacy 57.1 ml/min; Est GFR (African American) 51.3 ml/min; Est GFR (Non-African American) 44.2 ml/min; Potassium 3.9 mmol/L (3.5-5.1)
[2023-01-04] MEDS: FERROUS SULFATE 325 MG TAB PO SCH ×2 (07:41→18:04)
[2023-01-04] MEDS ORDERED: SODIUM CHLORIDE 0.9% 500 ML IV SCH (09:30)
--- NOTE | 2023-01-04 09:36 | Hospitalist Progress Note ---
Date of Service January 04, 2023 Assessment & Plan (1) Hematuria: Plan: (1) Hematuria: Plan: per Dr. Garcia's notes with addendum: H/O prostate cancer about 5 years ago and status post 44 radiation treatment and 4 infusion treatment. He has been complaining of hematuria for the last 3 months. Was seen by urology clinic on and the postvoid residual was 48 mL- apparent UA at that time did not show any infection. 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 Cystoscopy done in August 2022 with urethral dilation and fulguration; was being planned for hyperbaric oxygen therapy as outpatient Brought to the hospital with shortness of breath. Found to be anemic --CT ABD:The bladder is decompressed around a Devlin catheter. The wall appears thickened and there is surrounding inflammation. Correlate with clinical findings and urinalysis for evidence of cystitis. Hyperdense material is present within the bladder lumen as well as within a large bladder diverticulum. This likely represents blood clots. Again, this should be correlated with urinalysis. Consider nonemergent follow-up with urology to exclude the possibility of underlying bladder lesion. There is a punctate nonobstructing right renal calculus. Hepatomegaly and hepatic steatosis. Sigmoid diverticulosis without CT evidence of acute diverticulitis. There is an ovoid minimally complex fluid collection overlying the greater trochanter of the left proximal femur. This likely represents a seroma or hematoma. The sterility of this fluid cannot be assessed by imaging and clinical correlation will be required. -- Urine culture negative for UTI Patient underwent continuous bladder irrigation earlier in the hospitalization as per urology. Transfused 3 units of packed RBC. Devlin was removed on December 22, 2022. patient has been incontinent since Devlin removal; still has some gross hematuria. Renal ultrasound from 12/22 results reviewed; complex material in the bladder seen likely chronic blood clot Discussed with urology regarding the ultrasound findings; recommend conservative management. No plans for repeat cystoscopy. Plan for discharge to rehab, then home. Plan for outpatient hyperbaric oxygen treatment after discharging home Peer to peer done on 12/26; discussed regarding patient condition over 15 minutes. Advocated that patient will benefit from inpatient rehab stay as he has good rehab potential and needs medical supervision. However, it was denied. Case management was informed. Will need to look for SNF placement. 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 Patient has a history of DVT/PE in the past. He was on Coumadin prior to admission which was stopped due to gross hematuria/anemia. Discussion was done by previous hospitalist with Dr. Gore on 12/18/2022; trial of Lovenox 30 mg subcu was done. However, he continued to have hematuria. It was discontinued after discussion with the family and the patient. Venous duplex done on 12/26/2022shows concern for DVT extending from common femoral vein through popliteal vein as well as calf vessels. DC heparin drip. Underwent IVC filter placement on 12/28/2022. 01/04 stable (+) edema- elevate legs Lasix 20mg po given yesterday -- hold off today (+) orthostasis gentle IV fluids started -- increase Hydrocortisone to 20mg BID Symptomatic anemia Acute blood loss anemia due to hematuria S/P 3 unit PRBCs Monitor H&H and transfuse PRBCs as needed Hemoglobin stable Iron studies personally reviewed; consistent with iron deficiency anemia. Ferritin of 48 Completed 5-day course of IV iron on 12/28. 01/04 Hg stable- 9 VIOLETA on CKD III, likely prerenalresolved Creatinine bumped up to 3.14 during the hospitalization downtrended to baseline with iv hydration Renal usg as above. 01/04 crea 1.4 stable Diarrhea Likely secondary to IV antibiotics resolved Aortic stenosis: --ECHO-Echo was done on of this month showed normal LV size and systolic function with EF of 60 to 65%, no regional wall motion abnormalities, moderate concentric LVH, mild aortic stenosis, mild mitral regurgitation, mildly dilated ascending aorta of 4.4 cm, small pericardial effusion without tamponade, no significant change compared with prior study of 06/16/2001 COPD (chronic obstructive pulmonary disease): Has COPD on trilogy Follows with [employer] as outpatient No acute exacerbation Obstructive sleep apnea on trilogy CKD Monitor renal function DVT Px: SCDs. Code Status Full Code Disposition transition to SNF when accepted plan of care discussed with patient all questions answered Admission and Anticipated Discharge Date Admission Date: December 14, 2022 Subjective ff up for hematuria, etc seen resting in bed, sitting up participating in PT noted to have orthostatic hypotension patient was reporting some lightheadedness when upright otherwise no other new symptoms no hematuria no other symptoms Review of Systems Review of Systems: all noted and negative except for above Physical Exam Physical Exam: General- oriented x 3, not in distress, speaks in sentences with no effort or accessory muscle use Eyes- anicteric Neck- no JVD Lungs- clear breath sounds bilaterally, no rales/wheezes Heart- normal rate, regular rhythm; no murmurs Abdomen- normal bowel sounds, nondistended, soft, nontender Extremities- mild lower leg pretibial edema, no calf tenderness no erythema/warmth/tenderness Neuro- alert, oriented x 3; no gross focal neurologic deficits Skin- warm & dry Results & Data Results & Data Vital Signs (Past 12 Hours) Vital Signs Temp Pulse Pulse Resp BP Pulse Ox O2 Del Method 01/04/23 08:11 36.3 C L 63 20 128/64 97 Room Air 01/04/23 07:57 60 01/04/23 03:03 37.1 C 66 20 135/74 97 Room Air 01/03/23 23:13 36.6 C 70 17 137/73 95 Room Air all noted and reviewed including below (1) Hematuria Hematuria type: gross Qualified Code(s): R31.0 - Gross hematuria
[2023-01-04] MEDS: FLUTICASONE PROPIONATE NA SPR 16 GM BTL SCH (09:56)
[2023-01-04] MEDS: TOCOPHERYL, DL-ALPHA 400 UNITS 180 MG CAP PO SCH (09:57)
[2023-01-04] MEDS: MONTELUKAST SODIUM 10 MG TABLET PO SCH (09:57)
[2023-01-04] MEDS: HYDROCORTISONE 10 MG TAB PO SCH ×2 (09:57→18:05)
[2023-01-04] MEDS: MULTIVITAMIN TAB PO SCH (09:57)
[2023-01-04] MEDS: NYSTATIN POWDER 15GM BTL EXT SCH ×2 (09:57→20:15)
[2023-01-04] MEDS: ASCORBIC ACID 500 MG TAB PO SCH (09:57)
[2023-01-04] MEDS: ADVANCED PROBIOTIC 1250 MG CAPSULE PO SCH (09:57)
[2023-01-04] MEDS: LIDOCAINE 2% JELLY 5 ML TUBE EXT SCH (13:30)
[2023-01-04 16:50] LABS: Basophils # (auto) 0.03 K/uL (0-0.2); Basophils % (auto) 0.4 %; Eosinophils # (auto) 0.04 K/uL (0-0.50); Eosinophils % (auto) 0.5 %; Hematocrit (blood only) 28.8 % (42.0-52.0); Hemoglobin 8.8 g/dl (14.0-18.0); Immature Granulocytes # (auto) 0.05 K/uL (0.01-0.20); Immature Granulocytes % (auto) 0.7 %; Lymphocytes # (auto) 0.93 K/uL (1.2-3.4); Lymphocytes % (auto) 12.4 %; Mean Corpuscular Hemoglobin 27.1 pg (25.0-34.0); Mean Corpuscular Hgb Conc 30.6 g/dL (32.0-36.0); Mean Corpuscular Volume 88.6 fL (80.0-100.0); Monocytes % (auto) 6.6 %; Neutrophils # (auto) 5.98 K/uL (1.40-6.50); Neutrophils % (auto) 79.4 %; Platelet Count 184 K/uL (130-400); RDW Coefficient of Variation 18.6 % (11.5-14.5); RDW Standard Deviation 59.9 fL (36.4-46.3); Red Blood Count 3.25 M/uL (4.70-6.10); White Blood Count 7.53 K/ul (4.8-10.8)
[2023-01-04] MEDS: DONEPEZIL HCL 10 MG TAB PO SCH (20:14)
[2023-01-04] MEDS: CHOLECALCIFEROL 5,000 UNITS 125 MCG TAB PO SCH (20:15)
[2023-01-04] MEDS: FLUTICASONE FUROATE 200MCG 14 PUFFS/INHALER INH SCH (20:15)
[2023-01-04] MEDS: UMECLIDINIUM/VILANTEROL 62.5/25MCG 7 PUFFS/INHALER INH SCH (20:15)
[2023-01-04] MEDS: oxyCODONE HCL IR 5 MG TAB (IMMEDIATE RELEASE) PO PRN (21:24)
[2023-01-05] MEDS: FLUTICASONE PROPIONATE NA SPR 16 GM BTL SCH (08:53)
[2023-01-05] MEDS: ASCORBIC ACID 500 MG TAB PO SCH (08:54)
[2023-01-05] MEDS: HYDROCORTISONE 10 MG TAB PO SCH ×2 (08:54→17:54)
[2023-01-05] MEDS: TOCOPHERYL, DL-ALPHA 400 UNITS 180 MG CAP PO SCH (08:55)
[2023-01-05] MEDS: MULTIVITAMIN TAB PO SCH (08:55)
[2023-01-05] MEDS: MONTELUKAST SODIUM 10 MG TABLET PO SCH (08:56)
[2023-01-05] MEDS: NYSTATIN POWDER 15GM BTL EXT SCH ×2 (08:56→20:54)
[2023-01-05] MEDS: ADVANCED PROBIOTIC 1250 MG CAPSULE PO SCH (08:56)
[2023-01-05] MEDS: FERROUS SULFATE 325 MG TAB PO SCH ×2 (08:56→17:54)
[2023-01-05] MEDS: LIDOCAINE 2% JELLY 5 ML TUBE EXT SCH (11:00)
--- NOTE | 2023-01-05 15:19 | Hospitalist Progress Note ---
Date of Service January 05, 2023 Assessment & Plan (1) Hematuria: Plan: (1) Hematuria: Plan: per Dr. Garcia's notes with addendum: H/O prostate cancer about 5 years ago and status post 44 radiation treatment and 4 infusion treatment. He has been complaining of hematuria for the last 3 months. Was seen by urology clinic on and the postvoid residual was 48 mL- apparent UA at that time did not show any infection. 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 Cystoscopy done in August 2022 with urethral dilation and fulguration; was being planned for hyperbaric oxygen therapy as outpatient Brought to the hospital with shortness of breath. Found to be anemic --CT ABD:The bladder is decompressed around a Devlin catheter. The wall appears thickened and there is surrounding inflammation. Correlate with clinical findings and urinalysis for evidence of cystitis. Hyperdense material is present within the bladder lumen as well as within a large bladder diverticulum. This likely represents blood clots. Again, this should be correlated with urinalysis. Consider nonemergent follow-up with urology to exclude the possibility of underlying bladder lesion. There is a punctate nonobstructing right renal calculus. Hepatomegaly and hepatic steatosis. Sigmoid diverticulosis without CT evidence of acute diverticulitis. There is an ovoid minimally complex fluid collection overlying the greater trochanter of the left proximal femur. This likely represents a seroma or hematoma. The sterility of this fluid cannot be assessed by imaging and clinical correlation will be required. -- Urine culture negative for UTI Patient underwent continuous bladder irrigation earlier in the hospitalization as per urology. Transfused 3 units of packed RBC. Devlin was removed on December 22, 2022. patient has been incontinent since Devlin removal; still has some gross hematuria. Renal ultrasound from 12/22 results reviewed; complex material in the bladder seen likely chronic blood clot Discussed with urology regarding the ultrasound findings; recommend conservative management. No plans for repeat cystoscopy. Plan for discharge to rehab, then home. 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 Patient has a history of DVT/PE in the past. He was on Coumadin prior to admission which was stopped due to gross hematuria/anemia. Discussion was done by previous hospitalist with Dr. Gore on 12/18/2022; trial of Lovenox 30 mg subcu was done. However, he continued to have hematuria. It was discontinued after discussion with the family and the patient. Venous duplex done on 12/26/2022shows concern for DVT extending from common femoral vein through popliteal vein as well as calf vessels. DC heparin drip. Underwent IVC filter placement on 12/28/2022. 01/05 stable (+) edema- elevate legs Lasix 20mg po given yesterday Orthostatic hypotension History of adrenal insufficiency --Given 500 cc IV fluids yesterday --Orthostatic vitals improved compared to yesterday, still having some dizziness -- increase Hydrocortisone to 20mg BID -- Monitor Symptomatic anemia Acute blood loss anemia due to hematuria S/P 3 unit PRBCs Monitor H&H and transfuse PRBCs as needed Hemoglobin stable Iron studies personally reviewed; consistent with iron deficiency anemia. Ferritin of 48 Completed 5-day course of IV iron on 12/28. 01/05 Hg stable- 9 VIOLETA on CKD III, likely prerenalresolved Creatinine bumped up to 3.14 during the hospitalization downtrended to baseline with iv hydration Renal usg as above. 01/05 crea 1.4 stable Diarrhea Likely secondary to IV antibiotics resolved Aortic stenosis: --ECHO-Echo was done on of this month showed normal LV size and systolic function with EF of 60 to 65%, no regional wall motion abnormalities, moderate concentric LVH, mild aortic stenosis, mild mitral regurgitation, mildly dilated ascending aorta of 4.4 cm, small pericardial effusion without tamponade, no significant change compared with prior study of 06/16/2001 COPD (chronic obstructive pulmonary disease): Has COPD on trilogy Follows with [facility] as outpatient No acute exacerbation Obstructive sleep apnea on trilogy DVT Px: IVC filter placed Code Status Full Code Disposition transition to SNF when orthostatic hypotension resolves plan of care discussed with patient and his over the phone in detail and at length all questions answered they are understanding, agreeable, comfortable with the plan of care Admission and Anticipated Discharge Date Admission Date: December 14, 2022 Subjective Follow-up for hematuria, etc. Seen resting in bed, comfortable, not in distress Still has some dizziness this morning when standing up, but less than yesterday No chest pain, shortness of breath, palpitations No hematuria No leg pain Review of Systems Review of Systems: all noted and negative except for above Physical Exam Physical Exam: General- oriented x 3, not in distress, speaks in sentences with no effort or accessory muscle use Eyes- anicteric Neck- no JVD Lungs- clear breath sounds bilaterally, no wheezing, no crackles Heart- normal rate, regular rhythm; no murmurs Abdomen- normal bowel sounds, nondistended, soft, nontender Extremities-with 1 lower extremity edema but with no erythema, warmth, tenderness Neuro- alert, oriented x 3; no gross focal neurologic deficits Skin- warm & dry Results & Data Results & Data Vital Signs (Past 12 Hours) Vital Signs Temp Pulse Resp BP Pulse Ox O2 Del Method 01/05/23 12:20 36.7 C 69 18 111/66 97 Room Air 01/05/23 11:13 Room Air 01/05/23 07:18 36.8 C 70 18 131/76 95 Room Air 01/05/23 04:00 36.5 C 66 18 128/67 95 Room Air 01/05/23 03:39 Room Air all noted and reviewed including below (1) Hematuria Hematuria type: gross Qualified Code(s): R31.0 - Gross hematuria
[2023-01-05] MEDS: CHOLECALCIFEROL 5,000 UNITS 125 MCG TAB PO SCH (20:54)
[2023-01-05] MEDS: DONEPEZIL HCL 10 MG TAB PO SCH (20:54)
[2023-01-05] MEDS: FLUTICASONE FUROATE 200MCG 14 PUFFS/INHALER INH SCH (20:55)
[2023-01-05] MEDS: UMECLIDINIUM/VILANTEROL 62.5/25MCG 7 PUFFS/INHALER INH SCH (20:55)
[2023-01-05] MEDS: ACETAMINOPHEN 325 MG TAB PO PRN (21:11)
[2023-01-06] MEDS: TOCOPHERYL, DL-ALPHA 400 UNITS 180 MG CAP PO SCH (08:58)
[2023-01-06] MEDS: ASCORBIC ACID 500 MG TAB PO SCH (08:58)
[2023-01-06] MEDS: MONTELUKAST SODIUM 10 MG TABLET PO SCH (08:58)
[2023-01-06] MEDS: ADVANCED PROBIOTIC 1250 MG CAPSULE PO SCH (08:58)
[2023-01-06] MEDS: FLUTICASONE PROPIONATE NA SPR 16 GM BTL SCH (08:58)
[2023-01-06] MEDS: FERROUS SULFATE 325 MG TAB PO SCH ×2 (08:58→17:25)
[2023-01-06] MEDS: NYSTATIN POWDER 15GM BTL EXT SCH ×2 (08:59→21:35)
[2023-01-06] MEDS: MULTIVITAMIN TAB PO SCH (08:59)
[2023-01-06] MEDS: HYDROCORTISONE 10 MG TAB PO SCH (10:06)
--- NOTE | 2023-01-06 10:23 | Cardiology Consultation ---
Date of Consultation January 06, 2023 Assessment & Plan (1) Orthostatic lightheadedness: (2) Orthostatic hypotension: (3) Adrenal insufficiency: (4) Anemia: (5) Hematuria: (6) Aortic stenosis: Plan Mr. Plascencia is a 77-year-old male with a history of Mild Aortic Stenosis, Dilated Ascending Aorta, Recurrent DVT/Pulmonary Emboli, Chronic Venous Insufficiency, CKD, Prostate Cancer, Obstructive Sleep Apnea (on CPAP), COPD/Asthma, Cognitive Decline, Adrenal Insufficiency, Urethral Stricture, Radiation Cystitis s/p Cystoscopy, Urethral Dilation and Fulguration with Dr. Aguiar 09/08/22 who was admitted to [facility] on 12/12/22 with Recurrent Gross Hematuria, Acute Urinary Retention, Anemia with a Hgb of 7.9 g/dL. The patient underwent placement of an IVC filter, and he had continuous bladder irrigation earlier in this hospitalization as per urology recommendations. He was also transfused 3 units of packed RBC's. Devlin was removed on December 22, 2022 and the patient has been incontinent since Devlin removal and still has some gross hematuria. Renal ultrasound from 12/22 results were reviewed; complex material in the bladder seen likely chronic blood clot. Attending hospitalist discussed with urology regarding the ultrasound findings and they recommended conservative management. No plans for repeat cystoscopy. Plan is for discharge to [facility], then home. Also planning for outpatient hyperbaric oxygen treatment after discharging home. During these past 3 days the patient has experienced positional lightheadedness especially with standing upright, it is transient and usually resolves in a matter of a few seconds. Admittedly, the patient appetite and food/fluid intake has been suppressed, and he does not like the hospital's food. His blood pressure has responded to IVF bolus and more recently his Hydrocortisone maintenance dose was increased to 20 mg b.i.d. -- which definitely has improved his positional lightheadedness. He is anxious to be discharged at this point. Patient has not experienced any angina pectoris or anginal equivalent symptoms, overt signs or symptoms of heart failure, nor has he had any evidence or symptoms suggestive of a dysrhythmia. He has not had any signs or symptoms suggestive of stroke or mini stroke. He does not experience claudication with his day-to-day activities. Recommend the followin. Agree with increasing Hydrocortisone to 20 mg b.i.d.. 2. Reassess orthostatic vital signs. 3. If SBP falls by 20 mmHg or if symptomatic, increase maintenance dose of Hydrocortisone even further. 4. Increase oral fluid and food intake as tolerated. At some point, he should be able to reduce his Hydrocortisone dosage. 5. Following discharge, he will do hyperbaric oxygen treatments which will hopefully decrease his hematuria and recurrent bleeding. Thank you for asking us to see this patient in consultation. If we can be of any further assistance to you, please contact [facility]. History of Present Illness Reason for Consultation: -- Orthostatic Hypotension. Requesting Physician: Ronal Manjarrez MD Attending Physician: Duke Wolf MD History of Present Illness Mr. Plascencia is a 77-year-old male with a history of Mild Aortic Stenosis, Dilated Ascending Aorta, Recurrent DVT/Pulmonary Emboli, Chronic Venous Insufficiency, CKD, Prostate Cancer, Obstructive Sleep Apnea (on CPAP), COPD/Asthma, Cognitive Decline, Adrenal Insufficiency, Urethral Stricture, Radiation Cystitis s/p Cystoscopy, Urethral Dilation and Fulguration with Dr. Aguiar 09/08/22 who was admitted to [facility] on 12/12/22 with Recurrent Gross Hematuria, Acute Urinary Retention, Anemia with a Hgb of 7.9 g/dL. The patient underwent continuous bladder irrigation earlier in this hospitalization as per urology recommendations. He was also transfused 3 units of packed RBC's. Devlin was removed on December 22, 2022 and the patient has been incontinent since Devlin removal and still has some gross hematuria. Renal ultrasound from 12/22 results were reviewed; complex material in the bladder seen likely chronic blood clot. Attending hospitalist discussed with urology regarding the ultrasound findings and they recommended conservative management. No plans for repeat cystoscopy. Plan is for discharge to [facility], then home. Also planning for outpatient hyperbaric oxygen treatment after discharging home. During his past 3 days the patient has experienced positional lightheadedness especially with standing upright, it is transient and usually resolves in a matter of a few seconds. Admittedly, the patient appetite and food/fluid intake has been suppressed, and he does not like the hospital's food. His blood pressure has responded to IVF bolus and more recently his Hydrocortisone maintenance dose was increased to 20 mg b.i.d. -- which definitely has improved his positional lightheadedness. He is anxious to be discharged at this point. He offers no other complaints. Patient specifically denies any exertional chest pain, heaviness, tightness, pressure, or discomfort. He denies any exertional neck, jaw, back, or arm pain. He denies any shortness of breath at rest, orthopnea, or PND. He denies any palpitations or syncope. Patient has not had any signs or symptoms suggestive of stroke or mini stroke. He does not experience claudication with his day-to-day activities. He is compliant with his medications and has not had any adverse side effects. He has had the following studies/procedures: 1. Stress Echo 11/27/2015 [facility]: Indeterminate due to image quality/refusal of Definity. No ischemic changes noted on limited wall analysis. Negative stress EKG. 7 minutes 16 seconds Frankie protocol. LVEF 55%-60%. Borderline enlargement of ascending aorta. 2. Echo 03/04/2018 [facility]: Normal LV systolic function. LVEF 60%. No reported wall motion abnormalities. Mild LVH. Mild (mean gradient 15; [facility] 1.4; peak velocity 2.7). Dilated ascending aorta. 3.Echo 06/20/2020 [facility]: Normal LV size, wall motion, systolic function. LVEF 65%-70%. Mild LVH. Mild . Ascending aorta 3.3 cm. 4. Echo 06/16/2021 [facility]: Normal LV size, wall motion, systolic function. LVEF 60%-65%. Moderate LVH. Mild left atrial dilation. Mild . HISTORICAL BACKGROUND: He is listed as having an IV dye allergy. Apparently in May of 2014, he underwent CT imaging for pulmonary embolism and sustained a cardiac arrest. In his words, it was not clear if the IV dye played a role vs his pulmonary emboli. He has chosen to not use IV contrast, however admits that he had had it several times prior to that instance with no problem. He was initially evaluated by [facility] on 06/20/2020. Family History: -- Father and mother with cancer. -- No known premature CAD. Social History: --Lives at home with his . No children. 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 --He denies tobacco or alcohol abuse. No drugs. 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 Allergies Allergy/AdvReac Type Severity Reaction Status Date / Time Iodinated Contrast Media Allergy Severe CARDIAC Verified 12/28/22 10:[address] CONTRAST clindamycin Allergy Unknown Unknown Verified 12/28/22 10:40 Home Medications Medication Instructions Recorded Confirmed Type cholecalciferol (vitamin D3) 125 125 mcg PO QPM 06/20/20 12/12/22 History mcg (5,000 unit) capsule donepezil 10 mg tablet 10 mg PO QPM 04/13/22 12/12/22 History multivitamin with minerals 1 cap PO DAILY 04/13/22 12/12/22 History hydrocortisone sod succ (PF) 100 100 mg (2 mL) IM ONCE PRN Adrenal 04/24/22 12/12/22 Rx mg/2 mL solution for injection Crisis #1 ea (Solu-Cortef Act-O-Vial (PF)) ascorbic acid (vitamin C) 1,000 mg 1,000 mg PO QAM 08/27/22 12/12/22 History tablet (Vitamin C) vitamin E 400 unit tablet 400 mg PO QAM 08/27/22 12/12/22 History epinephrine 0.3 mg/0.3 mL 0.3 mg IM Q4H PRN anaphylaxis 11/30/22 12/12/22 History injection, auto-injector memantine 10 mg tablet 10 mg PO BID 11/30/22 12/12/22 History montelukast 10 mg tablet 10 mg PO DAILY 11/30/22 12/12/22 History albuterol sulfate 90 mcg/actuation 2 puff inhalation Q6H PRN 12/03/22 12/12/22 Rx aerosol inhaler shortness of breath or wheezing #8.5 grams fluticasone fur. 200 mcg-umeclid 1 inh inhalation QPM 12/12/22 12/12/22 History 62.5 mcg-vilant 25 mcg inhalat.powder (Trelegy Ellipta) fluticasone propionate 50 2 spray intranasal DAILY 12/12/22 12/12/22 History mcg/actuation nasal spray,suspension hydrocortisone 5 mg tablet See Rx Instructions .Route 12/15/22 Rx .COMPLEX 90 days #450 tabs acetaminophen 650 mg 650 mg PO Q8H PRN pain (scale 01/07/23 Rx tablet,extended release (Tylenol 8 score 1-3) #10 tabs Hour) ferrous sulfate 325 mg (65 mg 325 mg PO BIDM #60 tabs 01/07/23 Rx iron) tablet,delayed release hydrocortisone 10 mg tablet 40 mg PO BID 2 days #16 tabs 01/07/23 Rx (Cortef) hydrocortisone 20 mg tablet 40 mg PO BID 2 days #8 tabs 01/07/23 Rx oxycodone 5 mg tablet 5 mg PO Q6H PRN pain #5 tabs 01/07/23 Rx Patient History Medical History Alhambra's disease follows with Endocrinology [facility] Adrenal insufficiency Allergic rhinitis Andropause Aortic stenosis follows annually with cardiology Ascending aorta dilation Asthma (10/03/11) well controlled. Benign prostatic hyperplasia Cardiac arrest hx r/t IV Contrast Dye "many years ago" Chronic steroid use Contrast media allergy COPD (chronic obstructive pulmonary disease) well controlled. uses Breo daily with exercise DVT (deep venous thrombosis) Hiatal hernia History of anal fissures History of DVT (deep vein thrombosis) hx "many years ago" unknown etiology History of pulmonary embolism hx "many years ago" unknown etiology Hx of prostatic malignancy ~2019. radiation Kidney stones x1 episode. no surgery needed. [facility] current use of anticoagulant Prostate cancer (12/22/13) "Positive family history of prostate cancer Rising PSA to 6.54 Status post ultrasound-guided biopsies 12/22/2013 revealing adenocarcinoma Heppner 3+4 Status post TURP 04/23/2014 benign tissue Status post repeat biopsy 07/19/2015 3+3, and 3+4 4+3 Status post repeat biopsy 03/06/2016 3+4, 4+3 and 4+4 Initiation of hormonal suppression 07/21/2016 with Lupron 30 mg. Plan for 18 months of hormonal suppression Status post completion of radiation therapy 10/09/2016 received 8040 cGy" On 05/20/16 11:31 Hilda Montemayor wrote "Positive family history of prostate cancer Rising PSA to 6.54 Status post ultrasound-guided biopsies 12/22/2013 revealing adenocarcinoma Jose 3+4 Status post TURP 04/23/2014 benign tissue Status post repeat biopsy 07/19/2015 3+3, and 3+4 4+3 Status post repeat biopsy 03/06/2016 3+4, 4+3 and 4+4" Sleep apnea Cpap Stage 3 chronic kidney disease Venous insufficiency (chronic) (peripheral) Surgical History H/O sinus surgery History of appendectomy History of colonoscopy History of right cataract extraction S/P cataract extraction S/P TURP (status post transurethral resection of prostate) Status post cystoscopy (11/07/13) Family History Father Prostate cancer Brother Prostate cancer Mother Thyroid cancer Cancer Other No family history of adverse response to anesthesia Social History Smoking Status: Never smoker Second Hand Exposure: No; Do You Dip or Chew Tobacco: No; Hx Alcohol Use: Yes Alcohol type: beer Alcohol Intake Frequency: Monthly or Less Hx Substance Use: No Preferred Language: Gibraltarian Communication Ability: Effective 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 Physical Exam Physical Exam: Orthostatic vital signs as listed. GENERAL: Patient in no acute distress. Complexion is pale. HEENT: Head is atraumatic, normocephalic. EOM's intact. Facies symmetric. No perioral cyanosis. NECK: No JVD. JVP is not elevated. Carotid upstrokes are + 2 bilaterally without obvious bruits. CHEST/LUNGS: Clear to auscultation throughout all lung flowers. No wheezes, rales, or crackles. CVS: S1 and S2 are regular at 70 bpm with a grade 1/6 basal systolic murmur heard best at right 2nd intercostal space. No diastolic murmurs. No gallops or rubs. PMI is nonpalpable. No lifts, heaves, or thrills. No abdominal aortic or renal bruits. ABDOMINAL EXAM: Bowel sounds are present. No masses, organomegaly, or tende rness. EXTREMITIES: No clubbing or cyanosis. Trace left leg edema, +1 right leg edema with brawny discoloration/pigmentation changes. Intact radial pulses bilaterally. NEUROLOGIC EXAM: Patient is awake, alert, and oriented. Pleasant and cooperative. Answers questions appropriately. Speech is clear. Gait pattern was not assessed. CHEMIST INSTRUMENTATION: -- NSR in the 60's and 70's. -- No arrhythmias identified. Results & Data Vital Signs (Past 12 Hours) Vital Signs Temp Pulse Pulse Resp BP Pulse Ox O2 Del Method 01/06/23 08:34 36.7 C 74 18 109/67 97 Room Air 01/06/23 04:00 36.9 C 70 18 117/70 96 Room Air 01/06/23 00:35 69 01/05/23 23:00 36.8 C 68 18 123/69 97 Room Air 01/05/23 23:07 Room Air Medications Administered Medications cholecalciferol (vitamin D3) 125 mcg (5,000 unit) capsule 125 mcg PO QPM 06/20/20 [History Confirmed 12/12/22] donepezil 10 mg tablet 10 mg PO QPM 04/13/22 [History Confirmed 12/12/22] multivitamin with minerals 1 cap PO DAILY 04/13/22 [History Confirmed 12/12/22] hydrocortisone sod succ (PF) 100 mg/2 mL solution for injection (Solu-Cortef Act-O-Vial (PF)) 100 mg (2 mL) IM ONCE PRN Adrenal Crisis #1 ea 04/24/22 [Rx Confirmed 12/12/22] ascorbic acid (vitamin C) 1,000 mg tablet (Vitamin C) 1,000 mg PO QAM 08/27/22 [History Confirmed 12/12/22] vitamin E 400 unit tablet 400 mg PO QAM 08/27/22 [History Confirmed 12/12/22] warfarin 5 mg tablet See Rx Instructions PO UD 11/27/22 [History Confirmed 12/12/22] epinephrine 0.3 mg/0.3 mL injection, auto-injector 0.3 mg IM Q4H PRN anaphylaxis 11/30/22 [History Confirmed 12/12/22] memantine 10 mg tablet 10 mg PO BID 11/30/22 [History Confirmed 12/12/22] montelukast 10 mg tablet 10 mg PO DAILY 11/30/22 [History Confirmed 12/12/22] albuterol sulfate 90 mcg/actuation aerosol inhaler 2 puff inhalation Q6H PRN shortness of breath or wheezing #8.5 grams 12/03/22 [Rx Confirmed 12/12/22] fluticasone fur. 200 mcg-umeclid 62.5 mcg-vilant 25 mcg inhalat.powder (Trelegy Ellipta) 1 inh inhalation QPM 12/12/22 [History Confirmed 12/12/22] fluticasone propionate 50 mcg/actuation nasal spray,suspension 2 spray intranasal DAILY 12/12/22 [History Confirmed 12/12/22] hydrocortisone 5 mg tablet See Rx Instructions .Route .COMPLEX 90 days #450 tabs 12/15/22 [Rx] Home Medications Acetaminophen (Acetaminophen 325 Mg Tab) 650 mg PO Q6H PRN PRN Reason: Fever/pain Stop: 01/14/23 21:55 Last Admin: 01/05/23 21:11 Dose: 650 mg Albuterol (Albuterol Hfa 8 Gm Inhaler) 2 puffs INH Q6H PRN PRN Reason: shortness of breath or wheezing Stop: 01/11/23 19:07 Ascorbic Acid (Ascorbic Acid 500 Mg Tab) 1,000 mg PO QAM [facility] Stop: 01/12/23 08:59 Last Admin: 01/06/23 08:58 Dose: 1,000 mg Donepezil HCl (Donepezil Hcl 10 Mg Tab) 10 mg PO QPM [facility] Stop: 01/11/23 20:59 Last Admin: 01/05/23 20:54 Dose: 10 mg Ferrous Sulfate (Ferrous Sulfate 325 Mg Tab) 325 mg PO BIDM [facility] Stop: 01/29/23 08:44 Last Admin: 01/06/23 08:58 Dose: 325 mg Fluticasone Furoate (Fluticasone Furoate 200mcg 14 Puffs/Inhaler) 1 puffs INH QPM [facility] Stop: 01/11/23 20:59 Last Admin: 01/05/23 20:55 Dose: 1 puffs Fluticasone Propionate (Fluticasone Propionate Na Spr 16 Gm Btl) 2 sprays NA DAILY [facility] Stop: 01/12/23 08:59 Last Admin: 01/06/23 08:58 Dose: 2 sprays Hydrocortisone (Hydrocortisone 10 Mg Tab) 20 mg PO BID@0930,1700 [facility] Stop: 02/04/23 16:59 Last Admin: 01/06/23 10:06 Dose: 20 mg Lactobacillus Acidophilus (Advanced Probiotic 1250 Mg Capsule) 2 cap PO DAILY [facility] Stop: 01/15/23 11:14 Last Admin: 01/06/23 08:58 Dose: 2 cap Lidocaine HCl (Lidocaine 2% Jelly 5 Ml Tube) 1 ml EXT PRN [facility] Stop: 01/14/23 11:29 Last Admin: 01/05/23 11:00 Dose: 1 ml Loperamide HCl (Loperamide Hcl 2 Mg Cap) 2 mg PO Q3H PRN PRN Reason: Diarrhea Stop: 01/13/23 13:40 Last Admin: 12/16/22 14:54 Dose: 2 mg Melatonin (Melatonin 3 Mg Tab) 3 mg PO HS PRN PRN Reason: Sleep Stop: 01/20/23 19:18 Last Admin: 01/01/23 22:00 Dose: 3 mg Memantine (Memantine Hcl 10 Mg Tab) 10 mg PO BID [facility] Stop: 01/11/23 20:59 Last Admin: 12/22/22 07:48 Dose: 10 mg Montelukast Sodium (Montelukast Sodium 10 Mg Tablet) 10 mg PO DAILY [facility] Stop: 01/12/23 08:59 Last Admin: 01/06/23 08:58 Dose: 10 mg Multivitamins (Multivitamin Tab) 1 tab PO DAILY [facility] Stop: 01/12/23 08:59 Last Admin: 01/06/23 08:59 Dose: 1 tab Nystatin (Nystatin Powder 15gm Btl) 1 appln EXT BID [facility] Stop: 01/29/23 11:29 Last Admin: 01/06/23 08:59 Dose: 1 appln Oxycodone HCl (Oxycodone Hcl Ir 5 Mg Tab (Immediate Release)) 5 mg PO Q6H PRN PRN Reason: Severe Pain (Scale 7, 8, 9,10) Stop: 01/14/23 02:47 Last Admin: 01/04/23 21:24 Dose: 5 mg Phenazopyridine HCl (Phenazopyridine Hcl 100 Mg Tab) 100 mg PO TID PRN PRN Reason: Bladder pain Stop: 01/14/23 21:14 Last Admin: 01/02/23 22:08 Dose: 100 mg Polyethylene Glycol (Polyethylene (Miralax) 17 Gm Pack) 17 gm PO DAILY PRN PRN Reason: Constipation Stop: 01/19/23 01:59 Last Admin: 01/03/23 13:57 Dose: 17 gm Umeclidinium/Vilanterol (Umeclidinium/Vilanterol 62.5/25mcg 7 Puffs/Inhaler) 1 puffs INH QPM [facility] Stop: 01/11/23 20:59 Last Admin: 01/05/23 20:55 Dose: 1 puffs Vitamin D (Cholecalciferol 5,000 Units 125 Mcg Tab) 5,000 units PO QPM [facility] Stop: 01/11/23 20:59 Last Admin: 01/05/23 20:54 Dose: 5,000 units Vitamin E (Tocopheryl, Dl-Alpha 400 Units 180 Mg Cap) 400 units PO QAM [facility] Stop: 01/12/23 08:59 Last Admin: 01/06/23 08:58 Dose: 400 units PG Care Time/CCT Total # of Minutes Spent Total Time Spent with Patient: Total time spent is greater than 50% in coordination of care (as documented) at patient's floor/unit and/or counseling patient:36 [place] [address] INT INP/OBS CARE 2/55MIN Patient Type Established Medical Decision Making Moderate Complexity Diagnoses Orthostatic lightheadedness R42 Orthostatic hypotension I95.1 Adrenal insufficiency E27.40 Anemia D64.9 Anemia type: unspecified type Hematuria R31.0 Hematuria type: gross Aortic stenosis I35.0 Time Spent (min) 55 (4) Anemia Anemia type: unspecified type Qualified Code(s): D64.9 - Anemia, unspecified (5) Hematuria Hematuria type: gross Qualified Code(s): R31.0 - Gross hematuria
--- NOTE | 2023-01-06 12:27 | XCELERA ---
[id number]
[2023-01-06] MEDS: LIDOCAINE 2% JELLY 5 ML TUBE EXT SCH (13:03)
[2023-01-06] MEDS ORDERED: HYDROCORTISONE 10 MG TAB PO ONE ×2 (14:00→19:05)
--- NOTE | 2023-01-06 15:14 | Hospitalist Progress Note ---
Date of Service January 06, 2023 Assessment & Plan (1) Hematuria: Plan: (1) Hematuria: H/O prostate cancer about 5 years ago and status post radiation treatment and infusion treatment. He has been complaining of hematuria for the last 3 months. Was seen by urology clinic on and-apparent UA at that time did not show any infection. 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 Cystoscopy done in August 2022 with urethral dilation and fulguration; was being planned for hyperbaric oxygen therapy as outpatient Brought to the hospital with shortness of breath. Found to be anemic --CT ABD:The bladder is decompressed around a Devlin catheter. The wall appears thickened and there is surrounding inflammation. Correlate with clinical findings and urinalysis for evidence of cystitis. Hyperdense material is present within the bladder lumen as well as within a large bladder diverticulum. This likely represents blood clots. Again, this should be correlated with urinalysis. Consider nonemergent follow-up with urology to exclude the possibility of underlying bladder lesion. There is a punctate nonobstructing right renal calculus. Hepatomegaly and hepatic steatosis. Sigmoid diverticulosis without CT evidence of acute diverticulitis. There is an ovoid minimally complex fluid collection overlying the greater trochanter of the left proximal femur. This likely represents a seroma or hematoma. The sterility of this fluid cannot be assessed by imaging and clinical correlation will be required. -- Urine culture negative for UTI Patient underwent continuous bladder irrigation earlier in the hospitalization as per urology. Transfused 3 units of packed RBC. Devlin was removed on December 22, 2022. patient has been incontinent since Devlin removal; still has some gross hematuria. Renal ultrasound from 12/22 results reviewed; complex material in the bladder seen likely chronic blood clot Discussed with urology regarding the ultrasound findings; recommend conservative management. No plans for repeat cystoscopy. Plan for discharge to rehab, then home. 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 Patient has a history of DVT/PE in the past. He was on Coumadin prior to admission which was stopped due to gross hematuria/anemia. Discussion was done by previous hospitalist with Dr. Wheatley on 12/18/2022; trial of Lovenox 30 mg subcu was done. However, he continued to have hematuria. It was discontinued after discussion with the family and the patient. Venous duplex done on 12/26/2022shows concern for DVT extending from common femoral vein through popliteal vein as well as calf vessels. DC heparin drip. Underwent IVC filter placement on 12/28/2022. 01/05 stable (+) edema- elevate legs Lasix 20mg po given yesterday Orthostatic hypotension History of adrenal insufficiency --Given 500 cc IV fluids yesterday --Orthostatic vitals improved compared to yesterday, still having some dizziness -- increase Hydrocortisone to 20mg BID -- Monitor - obtained echo and discussed w/ cardiology - No evidence of pulmonary hypertension or RV failure to indicate thromboembolic pulm. hnt. LV systolic function is normal. No regional wall motion abnormalities are noted. There is mild concentric LVH. EF 60 to 65%. Mild valvular aortic stenosis. Compared with study done in November 2022, nonsignificant change. Per cardiology - Recommend the followin. Agree with increasing Hydrocortisone to 20 mg b.i.d.. 2. Reassess orthostatic vital signs. 3. If SBP falls by 20 mmHg or if symptomatic, increase maintenance dose of Hydrocortisone even further. 4. Increase oral fluid and food intake as tolerated. At some point, he should be able to reduce his Hydrocortisone dosage. 5. Following discharge, he will do hyperbaric oxygen treatments which will hopefully decrease his hematuria and recurrent bleeding. Symptomatic anemia Acute blood loss anemia due to hematuria S/P 3 unit PRBCs Monitor H&H and transfuse PRBCs as needed Hemoglobin stable Iron studies personally reviewed; consistent with iron deficiency anemia. Ferritin of 48 Completed 5-day course of IV iron on 12/28. 01/05 Hg stable- 9 VIOLETA on CKD III, likely prerenalresolved Creatinine bumped up to 3.14 during the hospitalization downtrended to baseline with iv hydration Renal usg as above. 01/05 Cr 1.4 stable Diarrhea Likely secondary to IV antibiotics resolved Aortic stenosis: --ECHO-Echo was done on of this month showed normal LV size and systolic function with EF of 60 to 65%, no regional wall motion abnormalities, moderate concentric LVH, mild aortic stenosis, mild mitral regurgitation, mildly dilated ascending aorta of 4.4 cm, small pericardial effusion without tamponade, no significant change compared with prior study of 06/16/2001 Echo updated and reviewed by cardiology. COPD (chronic obstructive pulmonary disease): Has COPD on trilogy Follows with [facility] as outpatient No acute exacerbation Obstructive sleep apnea on trilogy DVT Px: IVC filter placed Code Status Full Code Disposition transition to SNF when orthostatic hypotension resolves Admission and Anticipated Discharge Date Admission Date: December 14, 2022 Subjective Follow-up for hematuria, DVT s/p IVC filter, etc. Seen resting in bed, comfortable, not in distress Still orthostatic No chest pain, shortness of breath, palpitations No hematuria No leg pain Discussed with the patient and at the bedside Obtained echocardiogram, and discussed with cardiology as well Review of Systems Review of Systems: All systems reviewed & are unremarkable except as noted in Subjective Physical Exam Physical Exam: General- oriented x 3, not in distress, speaks in sentences with no effort or accessory muscle use Eyes- anicteric Neck- no JVD Lungs- clear breath sounds bilaterally, no wheezing, no crackles Heart- normal rate, regular rhythm; no murmurs Abdomen- normal bowel sounds, nondistended, soft, nontender Extremities-with 1 lower extremity edema but with no erythema, warmth, tenderness Neuro- alert, oriented x 3; no gross focal neurologic deficits Skin- warm & dry Results & Data Results & Data Vital Signs (Past 12 Hours) Vital Signs Temp Pulse Pulse Resp BP Pulse Ox O2 Del Method 01/06/23 06:00 66 01/06/23 09:00 Room Air 01/06/23 10:40 36.7 C 74 16 117/69 97 Room Air 01/06/23 08:34 36.7 C 74 18 109/67 97 Room Air 01/06/23 04:00 36.9 C 70 18 117/70 96 Room Air Medications Administered Current Inpatient Medications Acetaminophen (Acetaminophen 325 Mg Tab) 650 mg PO Q6H PRN PRN Reason: Fever/pain Stop: 01/14/23 21:55 Last Admin: 01/05/23 21:11 Dose: 650 mg Albuterol (Albuterol Hfa 8 Gm Inhaler) 2 puffs INH Q6H PRN PRN Reason: shortness of breath or wheezing Stop: 01/11/23 19:07 Ascorbic Acid (Ascorbic Acid 500 Mg Tab) 1,000 mg PO QAM [facility] Stop: 01/12/23 08:59 Last Admin: 01/06/23 08:58 Dose: 1,000 mg Donepezil HCl (Donepezil Hcl 10 Mg Tab) 10 mg PO QPM [facility] Stop: 01/11/23 20:59 Last Admin: 01/05/23 20:54 Dose: 10 mg Ferrous Sulfate (Ferrous Sulfate 325 Mg Tab) 325 mg PO BIDM [facility] Stop: 01/29/23 08:44 Last Admin: 01/06/23 08:58 Dose: 325 mg Fluticasone Furoate (Fluticasone Furoate 200mcg 14 Puffs/Inhaler) 1 puffs INH QPM [facility] Stop: 01/11/23 20:59 Last Admin: 01/05/23 20:55 Dose: 1 puffs Fluticasone Propionate (Fluticasone Propionate Na Spr 16 Gm Btl) 2 sprays NA DAILY [facility] Stop: 01/12/23 08:59 Last Admin: 01/06/23 08:58 Dose: 2 sprays Hydrocortisone (Hydrocortisone 10 Mg Tab) 40 mg PO BID@0930,1700 [facility] Stop: 02/06/23 09:29 Lactobacillus Acidophilus (Advanced Probiotic 1250 Mg Capsule) 2 cap PO DAILY [facility] Stop: 01/15/23 11:14 Last Admin: 01/06/23 08:58 Dose: 2 cap Lidocaine HCl (Lidocaine 2% Jelly 5 Ml Tube) 1 ml EXT PRN [facility] Stop: 01/14/23 11:29 Last Admin: 01/06/23 13:03 Dose: 1 ml Loperamide HCl (Loperamide Hcl 2 Mg Cap) 2 mg PO Q3H PRN PRN Reason: Diarrhea Stop: 01/13/23 13:40 Last Admin: 12/16/22 14:54 Dose: 2 mg Melatonin (Melatonin 3 Mg Tab) 3 mg PO HS PRN PRN Reason: Sleep Stop: 01/20/23 19:18 Last Admin: 01/01/23 22:00 Dose: 3 mg Memantine (Memantine Hcl 10 Mg Tab) 10 mg PO BID [facility] Stop: 01/11/23 20:59 Last Admin: 12/22/22 07:48 Dose: 10 mg Montelukast Sodium (Montelukast Sodium 10 Mg Tablet) 10 mg PO DAILY [facility] Stop: 01/12/23 08:59 Last Admin: 01/06/23 08:58 Dose: 10 mg Multivitamins (Multivitamin Tab) 1 tab PO DAILY [facility] Stop: 01/12/23 08:59 Last Admin: 01/06/23 08:59 Dose: 1 tab Nystatin (Nystatin Powder 15gm Btl) 1 appln EXT BID [facility] Stop: 01/29/23 11:29 Last Admin: 01/06/23 08:59 Dose: 1 appln Oxycodone HCl (Oxycodone Hcl Ir 5 Mg Tab (Immediate Release)) 5 mg PO Q6H PRN PRN Reason: Severe Pain (Scale 7, 8, 9,10) Stop: 01/14/23 02:47 Last Admin: 01/04/23 21:24 Dose: 5 mg Phenazopyridine HCl (Phenazopyridine Hcl 100 Mg Tab) 100 mg PO TID PRN PRN Reason: Bladder pain Stop: 01/14/23 21:14 Last Admin: 01/02/23 22:08 Dose: 100 mg Polyethylene Glycol (Polyethylene (Miralax) 17 Gm Pack) 17 gm PO DAILY PRN PRN Reason: Constipation Stop: 01/19/23 01:59 Last Admin: 01/03/23 13:57 Dose: 17 gm Umeclidinium/Vilanterol (Umeclidinium/Vilanterol 62.5/25mcg 7 Puffs/Inhaler) 1 puffs INH QPM [facility] Stop: 01/11/23 20:59 Last Admin: 01/05/23 20:55 Dose: 1 puffs Vitamin D (Cholecalciferol 5,000 Units 125 Mcg Tab) 5,000 units PO QPM [facility] Stop: 01/11/23 20:59 Last Admin: 01/05/23 20:54 Dose: 5,000 units Vitamin E (Tocopheryl, Dl-Alpha 400 Units 180 Mg Cap) 400 units PO QAM [facility] Stop: 01/12/23 08:59 Last Admin: 01/06/23 08:58 Dose: 400 units (1) Hematuria Hematuria type: gross Qualified Code(s): R31.0 - Gross hematuria
[2023-01-06] MEDS: SODIUM CHLORIDE 0.9% 500 ML IV SCH ×2 (15:21→21:37)
[2023-01-06] MEDS: CHOLECALCIFEROL 5,000 UNITS 125 MCG TAB PO SCH (21:34)
[2023-01-06] MEDS: DONEPEZIL HCL 10 MG TAB PO SCH (21:34)
[2023-01-06] MEDS: UMECLIDINIUM/VILANTEROL 62.5/25MCG 7 PUFFS/INHALER INH SCH (21:35)
[2023-01-06] MEDS: FLUTICASONE FUROATE 200MCG 14 PUFFS/INHALER INH SCH (21:35)
[2023-01-06] MEDS: ACETAMINOPHEN 325 MG TAB PO PRN (21:39)
[2023-01-07] MEDS: SODIUM CHLORIDE 0.9% 500 ML IV SCH (04:01)
[2023-01-07 07:36] LABS: Hematocrit (blood only) 32.1 % (42.0-52.0); Hemoglobin 9.6 g/dl (14.0-18.0); Mean Corpuscular Hemoglobin 26.3 pg (25.0-34.0); Mean Corpuscular Hgb Conc 29.9 g/dL (32.0-36.0); Mean Corpuscular Volume 87.9 fL (80.0-100.0); Mean Platelet Volume 9.2 fL (9.4-12.4); Platelet Count 191 K/uL (130-400); RDW Coefficient of Variation 18.2 % (11.5-14.5); RDW Standard Deviation 57.9 fL (36.4-46.3); Red Blood Count 3.65 M/uL (4.70-6.10); White Blood Count 6.76 K/ul (4.8-10.8)
[2023-01-07] MEDS: ASCORBIC ACID 500 MG TAB PO SCH (07:37)
[2023-01-07] MEDS: TOCOPHERYL, DL-ALPHA 400 UNITS 180 MG CAP PO SCH (07:37)
[2023-01-07] MEDS: FERROUS SULFATE 325 MG TAB PO SCH (07:37)
[2023-01-07] MEDS: NYSTATIN POWDER 15GM BTL EXT SCH (07:38)
[2023-01-07] MEDS: MONTELUKAST SODIUM 10 MG TABLET PO SCH (07:38)
[2023-01-07] MEDS: MULTIVITAMIN TAB PO SCH (07:38)
[2023-01-07] MEDS: ADVANCED PROBIOTIC 1250 MG CAPSULE PO SCH (07:38)
[2023-01-07] MEDS: FLUTICASONE PROPIONATE NA SPR 16 GM BTL SCH (07:39)
[2023-01-07 07:51] LABS: BUN Creatinine Ratio 16.7 (10-20); Calcium 8.9 mg/dl (8.6-10.3); Creatinine Clr Calc Pharmacy 62.8 ml/min; Est GFR (African American) 57.2 ml/min; Est GFR (Non-African American) 49.3 ml/min; Magnesium 1.9 mg/dl (1.7-2.4); Phosphorus 3.6 mg/dl (2.5-4.9); Potassium 4.1 mmol/L (3.5-5.1)
[2023-01-07] MEDS ORDERED: HYDROCORTISONE 10 MG TAB PO SCH (09:30)
--- NOTE | 2023-01-07 10:57 | Discharge Summary ---
Date of Service January 07, 2023 Admission HPI Per Admitting Provider He is a 77 years old male with significant past medical history including CA prostate with treatment of 44 radiation treatment and 4 infusion treatment apparently has been complaining of hematuria for the last 3 months. He has been complaining of shortness of breath with minimal exertion for the last 2 weeks. He was seen by the urology office day before yesterday where he was noted to have a volume of 48 mL. He was not been able to pass any urine this morning and was complaining of some lower abdominal discomfort and came to emergency room. Denies any chest pain and her palpitation, no abdominal distention, no nausea and or vomiting, no fever and or chills. In the emergency room he was noted to have gross hematuria with a hemoglobin of 7.[address] scan did show possible clot in the urinary bladder. His INR was not supratherapeutic. Urologist was informed and he will be admitted to medical telemetry unit for continuation of care. Admission Exam Per Admitting Provider Physical Exam: Lying in bed comfortably Constitutional: well developed, well nourished and + ill appearing Eyes: PERRL, conjunctivae normal, anicteric sclerae ENMT: external ear and nose normal, oropharynx normal Neck: trachea midline, no thyromegaly Respiratory: no respiratory distress Auscultation: + diminished lung sounds; no crackles Cardiovascular: Rate/Rhythm: regular rate and regular rhythm; not tachycardic Heart Sounds: normal S1, normal S2 and + murmur Extremities: + edema (1+ edema bilaterally,chronic) Gastrointestinal (Abdomen): Inspection/Auscultation: normal bowel sounds; abdomen not distended Percussion/Palpation: abdomen soft; abdomen nontender Musculoskeletal: No acute arthritis involving any joint Neurologic: normal touch/pain/proprioception and moves all extremities; no focal motor deficits Psychiatric: A+Ox3, euthymic affect Lymphatic: no cervical or axillary lymphadenopathy Principal Diagnosis Hematuria DVT s/p IVC filter placement Discharge Exam General- oriented x 3, not in distress, speaks in sentences with no effort or accessory muscle use Eyes- anicteric Neck- no JVD Lungs- clear breath sounds bilaterally, no wheezing, no crackles Heart- normal rate, regular rhythm; no murmurs Abdomen- normal bowel sounds, nondistended, soft, nontender Extremities- + lower extremity edema but with no erythema, warmth, tenderness Neuro- alert, oriented x 3; speech fluent, answers appropriately, moves extremities Skin- warm & dry Discharge Data Allergies Allergy/AdvReac Type Severity Reaction Status Date / Time Iodinated Contrast Media Allergy Severe CARDIAC Verified 12/28/22 10:[address] CONTRAST clindamycin Allergy Unknown Unknown Verified 12/28/22 10:40 Consultations 12/12/22 14:51 ED Decision to Admit Stat 12/12/22 16:25 Consult Urology Stat 12/22/22 15:06 Consult Nephrology Routine 12/26/22 22:16 Consult Vascular Surgery Routine 01/06/23 09:28 Consult Cardiology Routine Procedures Performed Operation Date: 12/28/22 15:50 Actual Procedures p Inferior Vena Cava Filter Placement, Ultrasound Localization of Right Femoral Vein, Fluoroscopy for Postioning, Moderate Sedation [id number](Right) - Ramo Calderon MD Ordered Studies 12/12/22 12:33 CT abd pelvis wo con Stat FINDINGS: Lung bases: The heart is normal in size noting a small pericardial effusion. The lung bases are clear. There is a small hiatal hernia. Liver: The unenhanced liver is enlarged, measuring 18.6 cm in length. The liver demonstrates diffusely diminished attenuation indicating steatosis. Fatty sparing is seen adjacent to the gallbladder fossa. There is no intrahepatic biliary ductal dilatation. Gallbladder: Unremarkable. Spleen: Normal in size and attenuation. Pancreas: The unenhanced pancreas is grossly unremarkable. Adrenal glands: Unremarkable. Kidneys: The unenhanced kidneys demonstrate cortical atrophy and are without hydronephrosis. There is a punctate nonobstructing right renal calculus. No left renal calculi are identified and there is no ureteral stone. There is no evidence of contour deforming renal mass lesion. Abdominal vasculature: The abdominal aorta is normal in course and caliber noting moderate to advanced atherosclerotic calcification. There is ectasia of the hepatic artery which measures up to 14 mm in diameter. This is similar to previous. Bowel: There is mild sigmoid diverticulosis without CT evidence of acute diverticulitis. No bowel obstruction is identified. The appendix is not identified and reported surgically absent. Peritoneum: There is no intraperitoneal free air or abdominal ascites. There is a small fat-containing umbilical hernia. Lymphadenopathy: None. Pelvic viscera: The prostate gland is diminutive and heterogeneous, and contains metallic implants. The bladder is decompressed around a Devlin catheter. The bladder wall appears thickened comment with surrounding inflammation and foci of intramural gas. There is a large posterior bladder diverticulum which measures up to 5.6 cm. Hyperdense material within the bladder and the large bladder diverticulum likely represents blood clots. An additional small bladder diverticulum is seen on the right. Skeletal structures: The skeletal structures are osteopenic. There is moderate lumbosacral spondylosis. Degenerative change and partial fusion is seen in the sacroiliac joints. No lytic or blastic lesions are seen. 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 This is similar to previous Soft tissues: There is an approximately 10 x 7.5 x 5.5 cm ovoid minimally complex fluid collection overlying the greater trochanter of the left femur seen on axial image #[id number]. IMPRESSION: 1. The bladder is decompressed around a Devlin catheter. The wall appears thickened and there is surrounding inflammation. Correlate with clinical findings and urinalysis for evidence of cystitis. 2. Hyperdense material is present within the bladder lumen as well as within a large bladder diverticulum. This likely represents blood clots. Again, this should be correlated with urinalysis. Consider nonemergent follow-up with urology to exclude the possibility of underlying bladder lesion. 3. There is a punctate nonobstructing right renal calculus. 4. Hepatomegaly and hepatic steatosis. 5. Sigmoid diverticulosis without CT evidence of acute diverticulitis. 6. There is an ovoid minimally complex fluid collection overlying the greater trochanter of the left proximal femur. This likely represents a seroma or hematoma. The sterility of this fluid cannot be assessed by imaging and clinical correlation will be required. 7. Additional findings as above. 12/16/22 14:42 CT chest diagnostic wo con Routine FINDINGS: The central airways are patent. No pneumothorax. No pleural effusions. Mild emphysema. There is a punctate calcified granuloma seen within the base of the left lower lobe. A few small linear densities within the right lung posteriorly. This may represent subsegmental atelectasis are scarring. No focal lung consolidations to suggest pneumonia. No evidence for pulmonary edema. No suspicious lytic or blastic osseous lesions. Limited views of the upper abdomen demonstrate hepatic steatosis and a normal spleen. The punctate stone within the right kidney. The adrenal glands are unremarkable. There is a trace pericardial effusion. The heart is normal in size. Normal esophagus. No mediastinal or hilar lymphadenopathy. Normal thyroid gland. Moderate calcified plaque within the coronary arteries and aortic valve. There is mild calcified plaque within the thoracic aorta. There is mild aneurysmal dilatation of the ascending thoracic aorta measuring up to 4.3 cm in diameter. IMPRESSION: 1. No focal lung consolidations to suggest pneumonia. 2. Mild emphysema. 3. Hepatic steatosis. 4. Right-sided nephrolithiasis. 5. Mild aneurysmal dilatation of the ascending thoracic aorta measuring up to 4.3 cm in diameter. 12/22/22 16:22 US Renal Bladder [US renal/blad retro comp] Routine FINDINGS: The right kidney measures 12.5 cm in length, and the left kidney measures 12.5 cm in length. The right kidney is normal in size, contour, cortical thickness, and echogenicity. No hydronephrosis is identified. No renal lesion is identified. The left kidney is normal in size, contour, cortical thickness and echogenicity. No hydronephrosis is identified. No renal lesion is identified. Complex material is seen in the bladder without vascular flow. The bladder wall appears hyperemic. No large intraluminal mass is seen. IMPRESSION: Complex material in the bladder is nonspecific but may represent chronic blood clot, clinical correlation and possible cystoscopy is recommended. 12/26/22 13:20 US venous duplex leg [US venous doppler LE BI] Urgent FINDINGS/IMPRESSION: There is a deep venous thrombus extending from the common femoral vein, through the popliteal vein as well as the calf vessels, nearly occlusive in some areas. Pelvis is also seen to extend into the great saphenous vein. 12/28/22 09:58 EV IVC filter placement Urgent Hospital Course (1) Hematuria: (1) Hematuria: H/O prostate cancer about 5 years ago and status post radiation treatment and infusion treatment. He has been complaining of hematuria for the last 3 months. Was seen by urology clinic on and-apparent UA at that time did not show any infection. 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 Cystoscopy done in August 2022 with urethral dilation and fulguration; was being planned for hyperbaric oxygen therapy as out patient Brought to the hospital with shortness of breath. Found to be anemic --CT ABD:The bladder is decompressed around a Devlin catheter. The wall appears thickened and there is surrounding inflammation. Correlate with clinical findings and urinalysis for evidence of cystitis. Hyperdense material is present within the bladder lumen as well as within a large bladder diverticulum. This likely represents blood clots. Again, this should be correlated with urinalysis. Consider nonemergent follow-up with urology to exclude the possibility of underlying bladder lesion. There is a punctate nonobstructing right renal calculus. Hepatomegaly and hepatic steatosis. Sigmoid diverticulosis without CT evidence of acute diverticulitis. There is an ovoid minimally complex fluid collection overlying the greater trochanter of the left proximal femur. This likely represents a seroma or hematoma. The sterility of this fluid cannot be assessed by imaging and clinical correlation will be required. -- Urine culture negative for UTI Patient underwent continuous bladder irrigation earlier in the hospitalization as per urology. Transfused 3 units of packed RBC. Devlin was removed on December 22, 2022. patient has been incontinent since Devlin removal; still has some gross hematuria. Renal ultrasound from 12/22 results reviewed; complex material in the bladder seen likely chronic blood clot Discussed with urology regarding the ultrasound findings; recommend conservative management. No plans for repeat cystoscopy. Plan for discharge to rehab/snf, then home. 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 Patient has a history of DVT/PE in the past. He was on Coumadin prior to admission which was stopped due to gross hematuria/anemia. Discussion was done by previous hospitalist with Dr. Wheatley on 12/18/2022; trial of Lovenox 30 mg subcu was done. However, he continued to have hematuria. It was discontinued after discussion with the family and the patient. Venous duplex done on 12/26/2022shows concern for DVT extending from common femoral vein through popliteal vein as well as calf vessels. DC heparin drip. Underwent IVC filter placement on 12/28/2022. 01/07 stable (+) edema- elevate legs Orthostatic hypotension History of adrenal insufficiency --Given IV fluids --Orthostatic vitals improved -- increased Hydrocortisone to 20mg BID -> then increased to 40 mg BID after discussing w/ cardiology -- recommend to continue 40 mg twice daily for next 2 days, then reassess by physician, and possibly decrease the dose, eventually back to home dose. -- Monitor - obtained echo and discussed w/ cardiology - No evidence of pulmonary hypertension or RV failure to indicate thromboembolic pulm. hnt. LV systolic function is normal. No regional wall motion abnormalities are noted. There is mild concentric LVH. EF 60 to 65%. Mild valvular aortic stenosis. Compared with study done in November 2022, nonsignificant change. Per cardiology - Recommend the followin. Agree with increasing Hydrocortisone to 20 mg b.i.d.. 2. Reassess orthostatic vital signs. 3. If SBP falls by 20 mmHg or if symptomatic, increase maintenance dose of Hydrocortisone even further. 4. Increase oral fluid and food intake as tolerated. At some point, he should be able to reduce his Hydrocortisone dosage. 5. Following discharge, he will do hyperbaric oxygen treatments which will hopefully decrease his hematuria and recurrent bleeding. Symptomatic anemia Acute blood loss anemia due to hematuria S/P 3 unit PRBCs Monitor H&H and transfuse PRBCs as needed Hemoglobin stable Iron studies obtained; consistent with iron deficiency anemia. Ferritin of 48 Completed 5-day course of IV iron on 12/28. 5 Hg stable- 9.6 VIOLETA on CKD III, likely prerenalresolved Creatinine bumped up to 3.14 during the hospitalization downtrended to baseline with iv hydration Renal usg as above. 01/07 Cr 1.4 stable Diarrhea Likely secondary to IV antibiotics resolved Aortic stenosis: --ECHO-Echo was done on of this month showed normal LV size and systolic function with EF of 60 to 65%, no regional wall motion abnormalities, moderate concentric LVH, mild aortic stenosis, mild mitral regurgitation, mildly dilated ascending aorta of 4.4 cm, small pericardial effusion without tamponade, no significant change compared with prior study of 06/16/2001 Echo updated and reviewed by cardiology. COPD (chronic obstructive pulmonary disease): Has COPD on trilogy Follows with Assistant Property Manager as outpatient No acute exacerbation Obstructive sleep apnea on trilogy DVT Px: IVC filter placed Code Status Full Code Disposition transition to SNF Total Time Total Time Spent Total Time Spent (In Minutes): 40 Discharge Plan Discharge Items Patient Disposition: Transfer [facility] Reason For Visit: SOB, GROSS HEMATURIA Discharge Diagnosis: Hematuria DVT s/p IVC filter placement Condition on Discharge: Fair Activity: Per Instructions section Non-emergency contact: Primary Care Provider, Specialist and Urologist Call non-emergency contact if: you have any medication questions and your symptoms worsen Follow-up/Referrals: Trista Leroy CRNP [Nurse Practitioner] - (The urology office will call you for an appointment.) Leonid Watts MD [Physician] - 01/07/23 11:15 am Chuy Batista MD [Primary Care Provider] - (Date & Time 12/24/2022 3:00 PM Provider Chuy Batista MD [facility] ) Diet: Heart Healthy Addtl Attending Provider Instructions: Follow-up with primary care physician within the next few days. You were diagnosed with DVT in your right leg, and IVC filter was placed. Because of hematuria/blood in the urine, your anticoagulation - warfarin was discontinued. You will need to follow-up with urology, and your other specialists, pulmonary medicine and cardiology. Your hydrocortisone dose was increased to 40 mg twice a day. This dose can be decreased to your regular home dose as your blood pressure is improving. Discuss this with physician, and do not make changes on your own. Pending Studies at Discharge: No Stand-Alone Forms: [facility] [employer] Skilled Items Patient informed of condition?: Yes DNR: No Discharge Level of Care: Acute rehab Communicable Disease: No Discharge Prognosis: Other Lines: None Urinary Catheter: No Medications and DC Order Prescriptions: New ferrous sulfate 325 mg (65 mg iron) Tablet,Delayed Release (Dr/Ec) 325 mg PO BIDM Qty: 30 0RF hydrocortisone [Cortef] 10 mg Tablet 40 mg PO BID 2 Days Qty: 16 0RF Continued epinephrine 0.3 mg/0.3 mL auto-injector 0.3 mg IM Q4H PRN (Reason: anaphylaxis) memantine 10 mg tablet 10 mg PO BID hydrocortisone 5 mg tablet See Rx Instructions .ROUTE .COMPLEX 90 Days Qty: 450 0RF Rx Instructions: 20 mg 09:30 after breakfast, 10 mg at dinner cholecalciferol (vitamin D3) 125 mcg (5,000 unit) capsule 125 mcg PO QPM donepezil 10 mg tablet 10 mg PO QPM multivitamin with minerals Capsule 1 cap PO DAILY Solu-Cortef Act-O-Vial (PF) 100 mg/2 mL recon soln 100 mg IM ONCE PRN (Reason: Adrenal Crisis) Qty: 1 0RF albuterol sulfate 90 mcg/actuation HFA aerosol inhaler 2 puff inhalation Q6H PRN (Reason: shortness of breath or wheezing) Qty: 8.5 2RF montelukast 10 mg tablet 10 mg PO DAILY fluticasone propionate 50 mcg/actuation spray,suspension 2 spray INTRANASAL DAILY Trelegy Ellipta 200-62.5-25 mcg blister with device 1 inh INHALATION QPM ascorbic acid (vitamin C) [Vitamin C] 1,000 mg Tablet 1,000 mg PO QAM vitamin E 400 unit Tablet 400 mg PO QAM Discontinued warfarin 5 mg tablet See Rx Instructions PO UD Rx Instructions: 7.5mg q //, 5mg x 4 days per [facility] orally use as directed Discharge Orders: Discharge Order (Routine); Ordered 01/07/23 Ordered By: Ronal Manjarrez Admission Data Admit Date/Time: 12/14/22 11:27 Attending Provider: Ronal Manjarrez Admit Provider: Estefany Devlin Primary Care Provider: Chuy Batista Other Providers: [facility] ; [facility] ; Estefany Devlin ; Dequan Aguiar ; Ramo Calderon Amrit ; [facility] ; Venkat Malin ; Cornelio Enriquez ; Nain Milner ; Duke Wolf ; Zak Shah ; Willi Meza ; Dhaval Tatum Jr ; Massimo Reyes ; Evelyn Padilla ; Trista Cortes ; Cristian Van ; Dequan Charles ; Pancho Garcia ; Edie Killian ; Alma Rosa Kay ; Rich Grayson ; Kenton Welsh ; Zak Max V.
[2023-01-07] MEDS: LIDOCAINE 2% JELLY 5 ML TUBE EXT SCH (11:23)
[2023-01-07] MEDS: oxyCODONE HCL IR 5 MG TAB (IMMEDIATE RELEASE) PO PRN (15:03)
== END 2023-01-07 15:50 | DRG 699 ==
LOC: ED 11:10 → 2N 11:10 → SUATTDRO 12-14 11:27 → 2W 01-03 15:10

== ENCOUNTER 2023-04-09 00:06 | Observation (INO) ==
[2023-04-09] MEDS ORDERED: LIDOCAINE 2% JELLY 5 ML TUBE EXT ONE (01:16)
[2023-04-09 01:34] LABS: Albumin Globulin Ratio 1.5 (0.9-2); BUN Creatinine Ratio 14.7 (10-20); Bilirubin,Total 0.5 mg/dl (0.2-1.0); Calcium 9.1 mg/dl (8.6-10.3); Creatinine Clr Calc Pharmacy 44.5 ml/min; Est GFR (African American) 38.6 ml/min; Est GFR (Non-African American) 33.3 ml/min; Globulin 2.6 gm/dl (2.5-4.0); Potassium 4.1 mmol/L (3.5-5.1); Total Protein 6.6 gm/dl (6.0-8.3)
[2023-04-09 01:48] LABS: Basophils # (auto) 0.04 K/uL (0.00-0.20); Basophils % (auto) 0.5 %; Eosinophils # (auto) 0.09 K/uL (0.00-0.50); Eosinophils % (auto) 1.2 %; Hematocrit (blood only) 30.5 % (42.0-52.0); Hemoglobin 9.7 g/dl (14.0-18.0); Immature Granulocytes # (auto) 0.03 K/uL (0.01-0.20); Immature Granulocytes % (auto) 0.4 %; Lymphocytes # (auto) 1.27 K/uL (1.20-3.40); Lymphocytes % (auto) 17.1 %; Mean Corpuscular Hemoglobin 28.8 pg (25.0-34.0); Mean Corpuscular Hgb Conc 31.8 g/dL (32.0-36.0); Mean Corpuscular Volume 90.5 fL (80.0-100.0); Mean Platelet Volume 9.7 fL (9.4-12.4); Monocytes # (auto) 0.54 K/uL (0.11-0.59); Monocytes % (auto) 7.3 %; Neutrophils # (auto) 5.45 K/uL (1.40-6.50); Neutrophils % (auto) 73.5 %; Platelet Count 246 K/uL (130-400); RDW Coefficient of Variation 15.9 % (11.5-14.5); RDW Standard Deviation 52.5 fL (36.4-46.3); Red Blood Count 3.37 M/uL (4.70-6.10); White Blood Count 7.42 K/ul (4.8-10.8)
[2023-04-09 02:03] LABS: Appearance Urine Slightly Cloudy (Clear); Color Urine Brown
[2023-04-09 02:06] LABS: Specific Gravity Urine 1.012 (1.000-1.030)
[2023-04-09 02:10] LABS: Bacteria Urine 1+ (Negative); Epithelial Cell Urine 0-5 /lpf (0-5); RBC Urine >30 /hpf (0-4)
[2023-04-09] MEDS ORDERED: SODIUM CHLORIDE 0.9% 500 ML IV ONE (02:12)
--- NOTE | 2023-04-09 02:59 | History & Physical Report ---
Date of Service April 09, 2023 Assessment & Plan (1) Hematuria: Plan: 77 M with PMH prostate cancer s/p TURP, radiation, CKD 3, and COPD, who presents from wound care clinic with gross hematuria. Now admitted, awaiting further evaluation by urology. 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 Gross hematuria following days of urinary retention. -Symptoms have improved since insertion of Tatum catheter. Hgb stable. Afebrile. No leukocytosis. -Case discussed with urology. Formal consult placed for evaluation. * Admit to MedSurg telemetry * Continue Tatum catheter. Manually flush/attempt irrigation as needed for obstruction * N.p.o. maintenance lactated ringer * Urine culture pending. * Appreciate urology recommendations Anemia -Chronic, 2/2 chronic blood loss due to the aforementioned cancer of the prostate. -Hemoglobin remains stable. Patient takes iron sulfate tablets every other day. * Trend a.m. CBC. If hemoglobin downtrending on morning lab, would initiate serial H&H labs. * Continue home iron tablets once able to eat. COPD -Chronic. Well-controlled on Trelegy, Singulair, as needed albuterol inhalers * Continue home regimen Mild cognitive impairment -No record of this in patient's chart, or in scanned documents from his PCP at [facility]. -Patient himself states he was previously on Prevagen but was switched to memantine due to vivid dreams. * Continue home donepezil, memantine. Code: Full code Dispo: Med-Surg telemetry FEN/GI: NPO. LR @maintenance rate DVT Prophylaxis: None PT/OT: Yes Consults: Urology Case Management: [Yes][No] (2) Radiation cystitis: (3) Anemia: (4) COPD (chronic obstructive pulmonary disease): (5) Mild cognitive impairment, so stated: History of Present Illness Primary Care Provider: Deondre Hill MD Branden is a 77-year-old man with a history of prostate cancer (2014, s/p TURP, radiation in 2019), Beadle's disease, and CKD 3, who presents to the hospital from the wound care clinic, where he was receiving hyperbaric oxygen treatments for radiation cystitis. He was sent over due to persistent dario hematuria. Patient was discharged from the emergency room yesterday afternoon after initially presenting with a complaint of urinary retention. He has a long history of hematuria, and had recently been passing large blood clots. Urinalysis at previous ED visit showed no evidence of UTI. In the ED, vitals were mostly stable and within normal limits. He has hemogl obin of 9.7, which is stable from 9.1 two days prior. WBC count was normal. Cr is 1.91, which is slightly above his baseline. Urinalysis showed no signs of UTI. He received a 500 mL bolus of normal saline and hospitalist service was consulted for admission. ED physician also discussed case with urology, who will evaluate in the morning. On admission, he denies headache, shortness of breath, chest pain, abdominal pain, nausea, or back pain. Allergies Allergy/AdvReac Type Severity Reaction Status Date / Time Iodinated Contrast Media Allergy Severe CARDIAC Verified 04/08/23 08:[address] CONTRAST clindamycin Allergy Unknown Unknown Verified 04/08/23 08:49 chocolate flavor AdvReac Severe Cannot Unverified 04/08/23 08:49 take, interacts w/ medications. cranberry AdvReac Severe Cannot Unverified 04/08/23 08:49 take, interacts w/ medications. Home Medications Medication Instructions Recorded Confirmed Type cholecalciferol (vitamin D3) 125 125 mcg PO QPM 06/20/20 04/07/23 History mcg (5,000 unit) capsule donepezil 10 mg tablet 10 mg PO QPM 04/13/22 04/07/23 History multivitamin with minerals 1 cap PO DAILY 04/13/22 04/07/23 History ascorbic acid (vitamin C) 1,000 mg 1,000 mg PO QAM 08/27/22 04/07/23 History tablet (Vitamin C) epinephrine 0.3 mg/0.3 mL 0.3 mg IM Q4H PRN anaphylaxis 11/30/22 04/07/23 History injection, auto-injector memantine 10 mg tablet 10 mg PO BID 11/30/22 04/07/23 History montelukast 10 mg tablet 10 mg PO DAILY 11/30/22 04/07/23 History albuterol sulfate 90 mcg/actuation 2 puff inhalation Q6H PRN 12/03/22 04/07/23 Rx aerosol inhaler shortness of breath or wheezing #8.5 grams fluticasone fur. 200 mcg-umeclid 1 inh inhalation QPM 12/12/22 04/07/23 History 62.5 mcg-vilant 25 mcg inhalat.powder (Trelegy Ellipta) fluticasone propionate 50 2 spray intranasal DAILY PRN 12/12/22 04/07/23 History mcg/actuation nasal allergies spray,suspension acetaminophen 650 mg 650 mg PO Q8H PRN pain (scale 01/07/23 04/07/23 Rx tablet,extended release (Tylenol 8 score 1-3) #10 tabs Hour) ondansetron 4 mg disintegrating 4 mg PO Q6H PRN nausea and 02/18/23 04/07/23 Rx tablet vomiting #14 tabs vitamin E 268 mg (400 unit) capsule 268 mg PO DAILY 02/18/23 04/07/23 History oxymetazoline 0.05 % nasal spray 2 spray intranasal Q12H PRN Nasal 02/24/23 04/07/23 History (Afrin (oxymetazoline)) Congestion hydrocortisone 5 mg tablet See Rx Instructions .Route 03/05/23 04/07/23 Rx .COMPLEX 90 days #450 tabs ferrous sulfate 325 mg (65 mg 325 mg PO .EVERY OTHER DAY 04/07/23 04/08/23 History iron) tablet,delayed release sennosides 8.6 mg-docusate sodium 1 - 2 tab-cap PO BID PRN 04/07/23 04/08/23 Rx 50 mg tablet (Senokot-S) constipation #60 tabs Past Med/Surg History Medical History [place] [facility] [place]renal insufficiency Allergic rhinitis Andropause Aortic stenosis follows annually with cardiology Ascending aorta dilation Asthma (10/03/11) well controlled. Benign prostatic hyperplasia Cardiac arrest hx r/t IV Contrast Dye "many years ago" Chronic steroid use Contrast media allergy COPD (chronic obstructive pulmonary disease) well controlled. uses Breo daily with exercise DVT (deep venous thrombosis) Hiatal hernia History of anal fissures History of DVT (deep vein thrombosis) hx "many years ago" unknown etiology History of pulmonary embolism hx "many years ago" unknown etiology Hx of prostatic malignancy ~2019. radiation Kidney stones x1 episode. no surgery needed. 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 Plan for 18 months of hormonal suppression Status post completion of radiation therapy 10/09/2016 received 8040 cGy" On 05/20/16 11:31 Hilda Montemayor wrote "Positive family history of prostate cancer Rising PSA to 6.54 Status post ultrasound-guided biopsies 12/22/2013 revealing adenocarcinoma [place] 3+4 Status post TURP 04/23/2014 benign tissue Status post repeat biopsy 07/19/2015 3+3, and 3+4 4+3 Status post repeat biopsy 03/06/2016 3+4, 4+3 and 4+4" Sleep apnea Cpap Stage 3 chronic kidney disease Venous insufficiency (chronic) (peripheral) Surgical History H/O sinus surgery History of appendectomy History of colonoscopy History of right cataract extraction S/P cataract extraction S/P TURP (status post transurethral resection of prostate) Status post cystoscopy (11/07/13) Family History Father Prostate cancer Brother Prostate cancer Mother Thyroid cancer Cancer Other No family history of adverse response to anesthesia Social History Smoking Status: Never smoker Tobacco Type: Cigarettes Second Hand Exposure: No; Do You Dip or Chew Tobacco: No; Hx Alcohol Use: Yes Alcohol type: beer Alcohol Intake Frequency: Monthly or Less Hx Substance Use: No Preferred Language: Spanish Communication Ability: Effective Visual Impairment: Limited Hearing Ability: Normal Scrap Charger Required: No Beliefs That Will Affect Care: None marital status: Current Living Situation: Spouse Current Living Situation Comment: at home with current occupational status: retired How many Children do You have: 0 Feels Safe at Home: Yes Diet: regular during the past year weight has: increased > 10 lbs Seatbelt Use: always Do you think of yourself as: straight/heterosexual Gender Identity: Male Assistive Devices: Glasses Review of Systems Review of Systems: All systems reviewed & are unremarkable except as noted in HPI & below Physical Exam Physical Exam: General: No acute distress HEENT: PERRLA. Normal conjunctiva, anicteric sclera. Oropharynx normal. Respiratory: Normal respiratory effort, CTABL. Cardiovascular: RRR without murmurs, gallops, or rubs. No pedal edema. GI: Soft, nondistended abdomen. Suprapubic tenderness to moderate palpation. All other quadrants nontender to palpation. Neuro: Alert and oriented x3. Results & Data Results & Data Vital Signs (Past 12 Hours) Vital Signs Temp Pulse Pulse Resp BP BP Pulse Ox 04/09/23 02:00 72 13 145/85 H 99 04/09/23 01:30 75 16 145/80 H 04/09/23 00:37 69 18 154/79 H 100 04/09/23 00:14 36.6 C 86 18 175/77 H 100 O2 Del Method 04/09/23 02:00 04/09/23 01:30 04/09/23 00:37 Room Air 04/09/23 00:14 Room Air Supervising Physician Co-Signing Physician Notes Patient seen and examined, chart reviewed, case discussed with Dr. Jaramillo and I agree with the assessment and plan as above. In brief, patient is a 77yo male with h/o prostate CA s/p radiation with radiation cystitis and ongoing hematuria. He has been seen in the ER several times with suprapubic discomfort and inability to urinate which resolved spontaneously. He presents today with the same. Tatum catheter placed with return of frankly bloody urine, improvement in symptoms. Patient is known to the Urology service He is receiving hyperbaric oxygen treatments On exam he is resting comfortably, NAD Does appear slightly pale MMM, Neck supple +S1/S2, regular, no m/r/g Lungs CTA Abd soft, NT/ND Ext - warm, well perfused Tatum in place with bloody urine Labs and images reviewed HR and BP stable Hgb 9.7 Mild increase in BUN to 28, Cr to 1.9 Assessment/Plan -Maintain tatum, flush as needed. -Appreciate Urology input -Follow urine culture -Will advance diet - no immediate procedures anticipated Resident Activity Tracking Resident Involvement: Resident Care Provided Care Provided: Adult Hospital Medicine (1) Hematuria Hematuria type: gross Qualified Code(s): R31.0 - Gross hematuria (3) Anemia Anemia type: unspecified type Qualified Code(s): D64.9 - Anemia, unspecified
--- NOTE | 2023-04-09 03:32 | Urology Consultation ---
Date of Consultation April 09, 2023 Assessment & Plan (1) Hematuria: (2) Radiation cystitis: (3) Acute urinary retention: The patient is being admitted on the hospitalist service. We recommend proceeding as follows: As noted the patient has had a Devlin catheter placed with excess of 500 cc of grossly bloody urine obtained. At the bedside I did manually flush and irrigate the catheter with copious amounts of sterile water. I was able to retrieve a few blood clots during this process. Following this procedure the Devlin catheter was patent and draining appropriately. The patient notes that since Devlin catheter was placed he has had marked improvement of his presenting symptomatology Would recommend following serial labs to monitor for significant drop in his hemoglobin and hematocrit Urine culture has been sent and if indicated antibiotics may be initiated based on these results Would maintain Devlin catheter for the present time. If Devlin catheter becomes clogged manual flushing and irrigation attempts may be employed until clear. If patient does have multiple episodes of Devlin catheter becoming clogged continuous bladder irrigation may need to be initiated Additional recommendations to be forthcoming based on his clinical course as it unfolds History of Present Illness Reason for Consultation: Gross hematuria with urinary retention History of Present Illness This is a 77-year-old male who is known to [facility] physician [facility] urology. The patient has a history of prostate cancer. He notes that he did not have surgical resection of his prostate but approximately 5 to 6 years ago he had radiation therapy to his pelvis secondary to this problem. For approximate the past 7 to 8 months he has had issues with ongoing hematuria felt to be secondary to radiation cystitis. The patient was most recently admitted to [facility] at the end of November of this year. During this admission the patient was noted to have gross hematuria and he did require continuous bladder irrigation with aluminum of irrigation. During this admission his continuous bladder irrigation was continued for an appropriate time until his urine cleared and a voiding trial was undertaken which he passed. Of note, the patient did previously take anticoagulation due to history of a DVT. His anticoagulation was stopped and he did have an IVC filter placed by Dr. Calderon on 12/28/2022. Due to his history of radiation cystitis and ongoing issues with hematuria he was felt to be potential candidate for hyperbaric oxygen therapy. The patient has initiated this therapy and had his 28 out of 60 treatments today. He does note that since his hyperbaric treatment has begun he has had episodes of clear urine intermixed with periods of hematuria. He presented to the emergency department on 04/09/2023 secondary to suprapubic pressure and inability to urinate. He notes that this suprapubic pressure caused quite a deal of discomfort prompting his visit to the emergency department. Since arrival to the hospital the patient has had labs performed. I did review the results of these. His white blood cell count and platelet count were both noted to be within normal range. Patient's hemoglobin and hematocrit were 9.7 and 30.5 respectively. Review of records show that this level of hemoglobin hematocrit did not represent a precipitous drop from previous values. Chemistry profile showed sodium and potassium are normal. His BUN and creatinine were 20 and 1.9. This level of creatinine was slightly above his baseline values which run from approximately 1.9-1.7. Urinalysis did show 10-30 white blood cells per high-power field and 1+ bacteria. Prior to this provider's arrival to the emergency department the patient has had a Devlin catheter placed. Grossly bloody urine was obtained in excess of 500 cc. The patient notes that since the Devlin catheter is in place he has had a great deal of relief of his symptomatology. At the time of my interview he was resting comfortably in bed he was in no distress Allergies Allergy/AdvReac Type Severity Reaction Status Date / Time Iodinated Contrast Media Allergy Severe CARDIAC Verified 04/08/23 08:[address] CONTRAST clindamycin Allergy Unknown Unknown Verified 04/08/23 08:49 chocolate flavor AdvReac Severe Cannot Unverified 04/08/23 08:49 take, interacts w/ medications. cranberry AdvReac Severe Cannot Unverified 04/08/23 08:49 take, interacts w/ medications. Home Medications Medication Instructions Recorded Confirmed Type cholecalciferol (vitamin D3) 125 125 mcg PO QPM 06/20/20 04/07/23 History mcg (5,000 unit) capsule donepezil 10 mg tablet 10 mg PO QPM 04/13/22 04/07/23 History multivitamin with minerals 1 cap PO DAILY 04/13/22 04/07/23 History ascorbic acid (vitamin C) 1,000 mg 1,000 mg PO QAM 08/27/22 04/07/23 History tablet (Vitamin C) epinephrine 0.3 mg/0.3 mL 0.3 mg IM Q4H PRN anaphylaxis 11/30/22 04/07/23 History injection, auto-injector memantine 10 mg tablet 10 mg PO BID 11/30/22 04/07/23 History montelukast 10 mg tablet 10 mg PO DAILY 11/30/22 04/07/23 History albuterol sulfate 90 mcg/actuation 2 puff inhalation Q6H PRN 12/03/22 04/07/23 Rx aerosol inhaler shortness of breath or wheezing #8.5 grams fluticasone fur. 200 mcg-umeclid 1 inh inhalation QPM 12/12/22 04/07/23 History 62.5 mcg-vilant 25 mcg inhalat.powder (Trelegy Ellipta) fluticasone propionate 50 2 spray intranasal DAILY PRN 12/12/22 04/07/23 History mcg/actuation nasal allergies spray,suspension acetaminophen 650 mg 650 mg PO Q8H PRN pain (scale 01/07/23 04/07/23 Rx tablet,extended release (Tylenol 8 score 1-3) #10 tabs Hour) ondansetron 4 mg disintegrating 4 mg PO Q6H PRN nausea and 02/18/23 04/07/23 Rx tablet vomiting #14 tabs vitamin E 268 mg (400 unit) capsule 268 mg PO DAILY 02/18/23 04/07/23 History oxymetazoline 0.05 % nasal spray 2 spray intranasal Q12H PRN Nasal 02/24/23 0 04/07/23 History (Afrin (oxymetazoline)) Congestion hydrocortisone 5 mg tablet See Rx Instructions .Route 03/05/23 04/07/23 Rx .COMPLEX 90 days #450 tabs ferrous sulfate 325 mg (65 mg 325 mg PO .EVERY OTHER DAY 04/07/23 04/08/23 History iron) tablet,delayed release sennosides 8.6 mg-docusate sodium 1 - 2 tab-cap PO BID PRN 04/07/23 04/08/23 Rx 50 mg tablet (Senokot-S) constipation #60 tabs Patient History Medical History Asotin's disease follows with Endocrinology [facility] [place] Adrenal insufficiency Allergic rhinitis Andropause Aortic stenosis follows annually with cardiology Ascending aorta dilation Asthma (10/03/11) well controlled. Benign prostatic hyperplasia Cardiac arrest hx r/t IV Contrast Dye "many years ago" Chronic steroid use Contrast media allergy COPD (chronic obstructive pulmonary disease) well controlled. uses Breo daily with exercise DVT (deep venous thrombosis) Hiatal hernia History of anal fissures History of DVT (deep vein thrombosis) hx "many years ago" unknown etiology History of pulmonary embolism hx "many years ago" unknown etiology Hx of prostatic malignancy ~2019. radiation Kidney stones x1 episode. no surgery needed. [facility] current use of anticoagulant Prostate cancer (12/22/13) "Positive family history of prostate cancer Rising PSA to 6.54 Status post ultrasound-guided biopsies 12/22/2013 revealing adenocarcinoma [place] 3+4 Status post TURP 04/23/2014 benign tissue Status post repeat biopsy 07/19/2015 3+3, and 3+4 4+3 Status post repeat biopsy 03/06/2016 3+4, 4+3 and 4+4 Initiation of hormonal suppression 07/21/2016 with Lupron 30 mg. Plan for 18 months of hormonal suppression Status post completion of radiation therapy 10/09/2016 received 8040 cGy" On 05/20/16 11:31 Hilda Montemayor wrote "Positive family history of prostate cancer Rising PSA to 6.54 Status post ultrasound-guided biopsies 12/22/2013 revealing adenocarcinoma Jose 3+4 Status post TURP 04/23/2014 benign tissue Status post repeat biopsy 07/19/2015 3+3, and 3+4 4+3 Status post repeat biopsy 03/06/2016 3+4, 4+3 and 4+4" Sleep apnea Cpap Stage 3 chronic kidney disease Venous insufficiency (chronic) (peripheral) Surgical History H/O sinus surgery History of appendectomy History of colonoscopy History of right cataract extraction S/P cataract extraction S/P TURP (status post transurethral resection of prostate) Status post cystoscopy (11/07/13) Family History Father Prostate cancer Brother Prostate cancer Mother Thyroid cancer Cancer Other No family history of adverse response to anesthesia Social History Smoking Status: Never smoker Tobacco Type: Cigarettes Second Hand Exposure: No; Do You Dip or Chew Tobacco: No; Hx Alcohol Use: Yes Alcohol type: beer Alcohol Intake Frequency: Monthly or Less Hx Substance Use: No Preferred Language: Belarusian Communication Ability: Effective Visual Impairment: Limited Hearing Ability: Normal Food Assembler Kitchen Required: No Beliefs That Will Affect Care: None marital status: Current Living Situation: Spouse Current Living Situation Comment: at home with current occupational status: retired How many Children do You have: 0 Feels Safe at Home: Yes Diet: regular during the past year weight has: increased > 10 lbs Seatbelt Use: always Do you think of yourself as: straight/heterosexual Gender Identity: Male Assistive Devices: Glasses Review of Systems Constitutional: no fever Ear, Nose, Mouth, Throat: no hearing loss Respiratory: no cough Cardiovascular: no chest pain Gastrointestinal: + abdominal pain (Suprapubic discomfort) Genitourinary: + as per Subjective / HPI Musculoskeletal: no back pain Integumentary: no rash Neurologic: no localized weakness Physical Exam Constitutional: WD/WN, vitals as above ENMT: Ears: no hearing impairment Neck: trachea midline Respiratory: normal respiratory effort; no respiratory distress and no labored breathing Cardiovascular: Rate/Rhythm: regular rate and regular rhythm Gastrointestinal (Abdomen): Abdomen is soft and nontender. No pain with palpation. Skin: no rashes Neurologic: moves all extremities Psychiatric: A+Ox3, euthymic affect Genitourinary: Devlin catheter was in place draining grossly bloody urine. I do not appreciate any sediment or blood clots in the Devlin tubing. Results & Data Vital Signs (Past 12 Hours) Vital Signs Temp Pulse Pulse Resp BP BP Pulse Ox 04/09/23 02:00 72 13 145/85 H 99 04/09/23 01:30 75 16 145/80 H 04/09/23 00:37 69 18 154/79 H 100 04/09/23 00:14 36.6 C 86 18 175/77 H 100 O2 Del Method 04/09/23 02:00 04/09/23 01:30 04/09/23 00:37 Room Air 04/09/23 00:14 Room Air PG Care Time/CCT Total # of Minutes Spent Total Time Spent with Patient: Total time spent is greater than 50% in coordination of care (as documented) at patient's floor/unit and/or counseling patient: Coding Level of Care Code 82820 INT INP/OBS CARE MIN Diagnoses Hematuria R31.0 Hematuria type: gross Radiation cystitis N30.40 Acute urinary retention R33.8 (1) Hematuria Hematuria type: gross Qualified Code(s): R31.0 - Gross hematuria
--- NOTE | 2023-04-09 04:54 | Emergency Department Note ---
Impression & Plan VIOLETA (acute kidney injury), Hematuria, Weakness Admit to the [facility] ED Provider Note NAME: EDWIN ESPANA AGE: 77 SEX: M ARRIVES VIA: Walk-In INFORMANT: Patient and his ED PROVIDER(S): [facility] DO CHIEF COMPLAINT: Weakness, abdominal pain and urinary retention PLAN: Disposition: Admit to the [facility] Condition: Stable MEDICAL DECISION MAKING: This is a 77-year-old male patient who presents to the emergency department complaining of hematuria, urinary retention and abdominal pain. This is the patient's third presentation to the emergency department with the same complaint but now he has associated significant weakness. Patient is currently undergoing hyperbaric treatments for the hematuria. He is on treatment #28 of 60. His hemoglobin is now around 9. His creatinine has elevated to 1.91. He has no leukocytosis. The patient's urine was evaluated last night for infection and was negative. The patient's explains that he has become so significantly weak with ambulation at home that he cannot safely maneuver. The patient once again had urinary retention secondary to blood clots from hematuria. A Devlin catheter was placed. [facility] for further [facility] care Triage Nursing notes reviewed and agree with them. Additional history obtained from his is now at the bedside External medical records were reviewed including an admission from January of this year. Vital Signs: reviewed and unremarkable Differential diagnosis: Obstructive uropathy, anemia, renal failure, UTI ER treatment provided: IV normal saline bolus Cardiac monitoring Twelve-lead EKG Devlin catheter placement Diagnostics interpreted by me: ECG: Normal sinus rhythm at a rate of [address] segment elevation or signs of ischemia. There is no ectopy. Cardiac Monitoring: Normal sinus rhythm at a rate of 86 Laboratory studies: See below HPI: 77/M arrives for evaluation of weakness and abdominal pain. Patient presents back to the emergency department for the third time tonight stating that he cannot pass his urine. He also explains that he has extreme weakness and times is unable to walk and as his describes it melting to the ground. Patient has been suffering from hematuria for the past 5 to 6 months. He is undergoing hyperbaric treatments through urology. PAST MEDICAL HISTORY:See Below PAST SURGICAL HISTORY:See Below FAMILY HISTORY:See Below SOCIAL HISTORY:See Below HOME MEDICATIONS:See Below ALLERGIES: See list VITALS:See Below PHYSICAL EXAMINATION: HEENT: Head - normocephalic and atraumatic. Pupils are equal, round, and reactive to light. Extraocular eye muscles are intact, and sclera are anicteric. Nose - moist nasal mucosa without discharge. Mouth - moist buccal mucosa. Oropharynx is nonerythematous and there is no tonsillar exudate or edema noted. Neck: Supple; no JVD or cervical lymphadenopathy Heart: Regular rate and rhythm. There is a normal S1 and S2 with no murmurs, clicks, or gallops appreciated. Lungs: Clear to auscultation bilaterally with no wheezes, rales, or rhonchi. Abdomen: Soft, mildly distended, with good bowel sounds. There are no palpable pulsatile masses or hepatosplenomegaly. There is no guarding, rigidity, or rebound noted. Extremities: No evidence of cyanosis, clubbing, or edema. There are easily palpable peripheral pulses. Skin: warm and dry with good turgor and no rashes. ED COURSE: Times/Reassessments: 0040 the patient was evaluated in room A 2. A complete history and physical was performed. An order was placed for continuous cardiac monitoring. The patient was in a normal sinus rhythm at a rate of 86. A twelve-lead EKG was obtained as described above. Nursing staff placed a Devlin catheter. Patient was bolused with IV normal saline solution. [facility] DO Past Med/Surg History Medical History Bradley's disease follows with Endocrinology [facility] Adrenal insufficiency Allergic rhinitis Andropause Aortic stenosis follows annually with cardiology Ascending aorta dilation Asthma (10/03/11) well controlled. Benign prostatic hyperplasia Cardiac arrest hx r/t IV Contrast Dye "many years ago" Chronic steroid use Contrast media allergy COPD (chronic obstructive pulmonary disease) well controlled. uses Breo daily with exercise DVT (deep venous thrombosis) Hiatal hernia History of anal fissures History of DVT (deep vein thrombosis) hx "many years ago" unknown etiology History of pulmonary embolism hx "many years ago" unknown etiology Hx of prostatic malignancy ~2019. radiation Kidney stones x1 episode. no surgery needed. USP current use of anticoagulant Prostate cancer (12/22/13) "Positive family history of prostate cancer Rising PSA to 6.54 Status post ultrasound-guided biopsies 12/22/2013 revealing adenocarcinoma Rachel 3+4 Status post TURP 04/23/2014 benign tissue Status post repeat biopsy 07/19/2015 3+3, and 3+4 4+3 Status post repeat biopsy 03/06/2016 3+4, 4+3 and 4+4 Initiation of hormonal suppression 07/21/2016 with Lupron 30 mg. Plan for 18 months of hormonal suppression Status post completion of radiation therapy 10/09/2016 received 8040 cGy" On 05/20/16 11:31 Hilda Montemayor wrote "Positive family history of prostate cancer Rising PSA to 6.54 Status post ultrasound-guided biopsies 12/22/2013 revealing adenocarcinoma Jose 3+4 Status post TURP 04/23/2014 benign tissue Status post repeat biopsy 07/19/2015 3+3, and 3+4 4+3 Status post repeat biopsy 03/06/2016 3+4, 4+3 and 4+4" Sleep apnea Cpap Stage 3 chronic kidney disease Venous insufficiency (chronic) (peripheral) Surgical History H/O sinus surgery History of appendectomy History of colonoscopy History of right cataract extraction S/P cataract extraction S/P TURP (status post transurethral resection of prostate) Status post cystoscopy (11/07/13) Family History Father Prostate cancer Brother Prostate cancer Mother Thyroid cancer Cancer Other No family history of adverse response to anesthesia Social History Smoking Status: Never smoker Tobacco Type: Cigarettes Second Hand Exposure: No; Do You Dip or Chew Tobacco: No; Hx Alcohol Use: No Hx Substance Use: No Preferred Language: Tamaz[place] Communication Ability: Effective Visual Impairment: Limited Hearing Ability: Normal Director Hr Communications Required: No Beliefs That Will Affect Care: None marital status: Current Living Situation: Spouse Current Living Situation Comment: at home with current occupational status: retired How many Children do You have: 0 Feels Safe at Home: Yes Diet: regular during the past year weight has: increased > 10 lbs Seatbelt Use: always Do you think of yourself as: straight/heterosexual Gender Identity: Male Assistive Devices: None Allergies Allergies Allergy/AdvReac Type Severity Reaction Status Date / Time Iodinated Contrast Media Allergy Severe CARDIAC Verified 04/08/23 08:[address] CONTRAST clindamycin Allergy Unknown Unknown Verified 04/08/23 08:49 chocolate flavor AdvReac Severe Cannot Unverified 04/08/23 08:49 take, interacts w/ medications. cranberry AdvReac Severe Cannot Unverified 04/08/23 08:49 take, interacts w/ medications. Home Meds Home Medications Medication Instructions Recorded Confirmed cholecalciferol (vitamin D3) 125 125 mcg PO QPM 06/20/20 04/09/23 mcg (5,000 unit) capsule donepezil 10 mg tablet 10 mg PO QPM 04/13/22 04/09/23 multivitamin with minerals 1 cap PO DAILY 04/13/22 04/09/23 ascorbic acid (vitamin C) 1,000 mg 1,000 mg PO QAM 08/27/22 04/09/23 tablet (Vitamin C) epinephrine 0.3 mg/0.3 mL 0.3 mg IM Q4H PRN anaphylaxis 11/30/22 04/09/23 injection, auto-injector memantine 10 mg tablet 10 mg PO BID 11/30/22 04/09/23 montelukast 10 mg tablet 10 mg PO DAILY 11/30/22 04/09/23 fluticasone fur. 200 mcg-umeclid 1 inh inhalation QPM 12/12/22 04/09/23 62.5 mcg-vilant 25 mcg inhalat.powder (Trelegy Ellipta) fluticasone propionate 50 2 spray intranasal DAILY PRN 12/12/22 04/09/23 mcg/actuation nasal allergies spray,suspension vitamin E 268 mg (400 unit) capsule 268 mg PO DAILY 02/18/23 04/09/23 oxymetazoline 0.05 % nasal spray 2 spray intranasal Q12H PRN Nasal 02/24/23 04/09/23 (Afrin (oxymetazoline)) Congestion ferrous sulfate 325 mg (65 mg 325 mg PO .EVERY OTHER DAY 04/07/23 04/09/23 iron) tablet,delayed release Previous Rx's Medication Instructions Recorded albuterol sulfate 90 mcg/actuation 2 puff inhalation Q6H PRN 12/03/22 aerosol inhaler shortness of breath or wheezing #8.5 grams acetaminophen 650 mg 650 mg PO Q8H PRN pain (scale 01/07/23 tablet,extended release (Tylenol 8 score 1-3) #10 tabs Hour) ondansetron 4 mg disintegrating 4 mg PO Q6H PRN nausea and 02/18/23 tablet vomiting #14 tabs hydrocortisone 5 mg tablet See Rx Instructions .Route 03/05/23 .COMPLEX 90 days #450 tabs sennosides 8.6 mg-docusate sodium 1 - 2 tab-cap PO BID PRN 04/07/23 50 mg tablet (Senokot-S) constipation #60 tabs Results & Data (ED) Vital Signs Vital Signs - 24 hr 04/09/23 00:14 04/09/23 00:37 04/09/23 01:30 Temperature 36.6 C Temperature Source Temporal Artery Scan Pulse Rate 86 75 Pulse Rate [Finger] 69 Pulse Rhythm Regular Pulse Rhythm [Finger] Regular Pulse Strength Normal Respiratory Rate 18 18 16 Respiratory Effort / Characteristics Non-Labored Spontaneous Respiratory Depth Normal Normal Respiratory Pattern Regular Blood Pressure 175/77 H 145/80 H Blood Pressure [Right Arm] 154/79 H Blood Pressure Mean 109 101 Blood Pressure Mean [Right Arm] 104 Blood Pressure Position Sitting Pulse Oximetry 100 100 Oxygen Delivery Method Room Air Room Air Sepsis Recent Fever Within 48 Hours No Sepsis New/Unexplained Change in Mental Status No Sepsis Action Taken by Nursing No Action Required 04/09/23 02:00 04/09/23 02:30 04/09/23 03:00 Temperature Temperature Source Pulse Rate 72 70 71 Pulse Rate [Finger] Pulse Rhythm Pulse Rhythm [Finger] Pulse Strength Respiratory Rate 13 17 18 Respiratory Effort / Characteristics Respiratory Depth Respiratory Pattern Blood Pressure 145/85 H 148/73 H 150/76 H Blood Pressure [Right Arm] Blood Pressure Mean 105 98 100 Blood Pressure Mean [Right Arm] Blood Pressure Position Pulse Oximetry 99 98 100 Oxygen Delivery Method Sepsis Recent Fever Within 48 Hours Sepsis New/Unexplained Change in Mental Status Sepsis Action Taken by Nursing 04/09/23 03:30 Temperature Temperature Source Pulse Rate 71 Pulse Rate [Finger] Pulse Rhythm Pulse Rhythm [Finger] Pulse Strength Respiratory Rate 13 Respiratory Effort / Characteristics Respiratory Depth Respiratory Pattern Blood Pressure 139/74 Blood Pressure [Right Arm] Blood Pressure Mean 95 Blood Pressure Mean [Right Arm] Blood Pressure Position Pulse Oximetry 98 Oxygen Delivery Method Sepsis Recent Fever Within 48 Hours Sepsis New/Unexplained Change in Mental Status Sepsis Action Taken by Nursing Laboratory Data 04/09/23 00:50 04/09/23 00:50 Lab Results 04/09/23 04/09/23 04/09/23 Range/Units 00:50 00:50 01:23 WBC 7.42 (4.8-10.8) K/ul RBC 3.37 L (4.70-6.10) M/uL Hgb 9.7 L (14.0-18.0) g/dl Hct 30.5 L (42.0-52.0) % MCV 90.5 (80.0-100.0) fL MCH 28.8 (25.0-34.0) pg MCHC 31.8 L (32.0-36.0) g/dL RDW Std Deviation 52.5 H (36.4-46.3) fL RDW Coeff of Robert 15.9 H (11.5-14.5) % Plt Count 246 (130-400) K/uL MPV 9.7 (9.4-12.4) fL Immature Gran % (Auto) 0.4 % Neut % (Auto) 73.5 % Lymph % (Auto) 17.1 % [place] % (Auto) 7.3 % Eos % (Auto) 1.2 % Baso % (Auto) 0.5 % Neut # (Auto) 5.45 (1.40-6.50) K/uL Lymph # (Auto) 1.27 (1.20-3.40) K/uL [place] # (Auto) 0.54 (0.11-0.59) K/uL Eos # (Auto) 0.09 (0.00-0.50) K/uL Baso # (Auto) 0.04 (0.00-0.20) K/uL Immature Gran # (Auto) 0.03 (0.01-0.20) K/uL Sodium 139 (136-145) mmol/L Potassium 4.1 (3.5-5.1) mmol/L Chloride 107 (98-107) mmol/L Carbon Dioxide 24 (21-32) mmol/L Anion Gap 8 (3-11) BUN 28 H (6-23) mg/dl Creatinine 1.91 H (0.6-1.4) mg/dl Est Cr Clr Drug Dosing 44.5 ml/min Est GFR ( Amer) 38.6 ml/min Est GFR (Non-Af Amer) 33.3 ml/min BUN/Creatinine Ratio 14.7 (10-20) Glucose 109 H (70-99(Fasting)) mg/dl Calcium 9.1 (8.6-10.3) mg/dl Total Bilirubin 0.5 (0.2-1.0) mg/dl AST 14 (13-39) U/L ALT 12 (7-52) U/L Alkaline Phosphatase 68 (34-104) U/L Total Protein 6.6 (6.0-8.3) gm/dl Albumin 4.0 (3.4-5.0) gm/dl Globulin 2.6 (2.5-4.0) gm/dl Albumin/Globulin Ratio 1.5 (0.9-2) Lipase 13 (11-82) U/L Urine Color Brown Urine Appearance Slightly Cloudy (Clear) Urine pH (4.5-7.5) Ur Specific [place] 1.012 (1.000-1.030) Urine Protein (Negative) Urine Glucose (UA) (Negative) Urine Ketones (Negative) Urine Blood (Negative) Urine Nitrite (Negative) Urine Bilirubin (Negative) Urine Urobilinogen (Negative) Ur Leukocyte Esterase (Negative) Urine RBC >30 H (0-4) /hpf Urine WBC 10-30 H (0-5) /hpf Ur Epithelial Cells 0-5 (0-5) /lpf Urine Bacteria 1+ H (Negative) Administered Medications Ascorbic Acid (Ascorbic Acid 500 Mg Tab) 1,000 mg PO QAM TAWNY Stop: 05/09/23 08:59 Last Admin: 04/09/23 08:58 Dose: 1,000 mg Documented By: KEILA Donepezil HCl (Donepezil Hcl 10 Mg Tab) 10 mg PO QPM TAWNY Stop: 05/09/23 20:59 Last Admin: 04/09/23 20:20 Dose: 10 mg Documented By: ANDREW Ferrous Sulfate (Ferrous Sulfate 325 Mg Tab) 325 mg PO Q2D TAWNY Stop: 05/09/23 08:59 Last Admin: 04/09/23 08:57 Dose: 325 mg Documented By: KEILA Fluticasone Furoate (Fluticasone Furoate 200mcg 14 Puffs/Inhaler) 1 puffs INH HS TAWNY Stop: 05/09/23 20:59 Last Admin: 04/09/23 20:22 Dose: 1 puffs Documented By: ANDREW Hydrocortisone (Hydrocortisone 10 Mg Tab) 10 mg PO 1700 TAWNY Stop: 05/09/23 16:59 Last Admin: 04/09/23 17:14 Dose: 10 mg Documented By: KAMALJIT Hydrocortisone (Hydrocortisone 10 Mg Tab) 20 mg PO 0930 TAWNY Stop: 05/09/23 09:29 Last Admin: 04/09/23 08:58 Dose: 20 mg Documented By: KEILA Memantine (Memantine Hcl 10 Mg Tab) 10 mg PO BID TAWNY Stop: 05/09/23 08:59 Last Admin: 04/09/23 20:20 Dose: 10 mg Documented By: Admin: 04/09/23 08:58 Dose: 10 mg Documented By: KEILA Montelukast Sodium (Montelukast Sodium 10 Mg Tablet) 10 mg PO DAILY TAWNY Stop: 05/09/23 08:59 Last Admin: 04/09/23 08:58 Dose: 10 mg Documented By: KEILA Multivitamins/Minerals (Cerovite Adv Formula Tab) 1 tab PO DAILY TAWNY Stop: 05/09/23 08:59 Last Admin: 04/09/23 08:58 Dose: 1 tab Documented By: KEILA Umeclidinium/Vilanterol (Umeclidinium/Vilanterol 62.5/25mcg 7 Puffs/Inhaler) 1 puffs INH HS TAWNY Stop: 05/09/23 20:59 Last Admin: 04/09/23 20:22 Dose: 1 puffs Documented By: ANDREW Vitamin D (Cholecalciferol 5,000 Units 125 Mcg Tab) 5,000 units PO QPM TAWNY Stop: 05/09/23 20:59 Last Admin: 04/09/23 20:20 Dose: 5,000 units Documented By: ANDREW Discontinued Medications Sodium Chloride (Nss) 500 mls @ 999 mls/hr IV .Q31M ONE Stop: 04/09/23 02:42 Last Infusion: 04/09/23 03:56 Dose: 0 mls/hr Documented By: Admin: 04/09/23 02:14 Dose: 999 mls/hr Documented By: RASHMI Lactated Ringer's (Lr) 1,000 mls @ 100 mls/hr IV .Q10H TAWNY Stop: 05/09/23 06:29 Last Infusion: 04/09/23 16:46 Dose: 0 mls/hr Documented By: Admin: 04/09/23 06:44 Dose: 100 mls/hr Documented By: RASHMI Lidocaine HCl (Lidocaine 2% Jelly 5 Ml Tube) Confirm Administered Dose 5 ml EXT .STK-MED ONE Stop: 04/09/23 01:17 Last Admin: 04/09/23 01:44 Dose: 5 ml Documented By: RASHMI Discharge Plan Visit Data Chief Complaint: Hematuria Stated Complaint: HEMATURIA, PAIN ED Provider: [facility] Discharge Problem: VIOLETA (acute kidney injury), Hematuria, Weakness Patient Disposition: Admitted As Inpatient Discharge Instructions Interventions: ED Discharge Assessment Last Done: 04/09/23 05:18 Hematuria Qualifiers: Hematuria type: gross Qualified Code(s): R31.0 - Gross hematuria
[2023-04-09] MEDS ORDERED: FLUTICASONE PROPIONATE NA SPR 16 GM BTL PRN (05:18)
[2023-04-09] MEDS ORDERED: FERROUS SULFATE 325 MG TAB PO SCH (05:18)
[2023-04-09] MEDS ORDERED: ONDANSETRON 4 MG OD TAB PO PRN (05:18)
[2023-04-09] MEDS ORDERED: POLYETHYLENE (MIRALAX) 17 GM PACK PO PRN (05:18)
[2023-04-09] MEDS ORDERED: EPINEPHrine ADULT AUTO-INJECT 0.3 MG SYR IM PRN (05:18)
[2023-04-09] MEDS ORDERED: ALBUTEROL HFA 8 GM INHALER INH PRN (05:18)
[2023-04-09] MEDS ORDERED: LACTATED RINGER'S 1,000 ML IV SCH (06:30)
--- NOTE | 2023-04-09 06:30 | Billing Data ---
Date of Service April 09, 2023 Coding Level of Care Code 32138 INT INP/OBS CARE
--- NOTE | 2023-04-09 06:46 | Hospitalist Progress Note ---
Date of Service April 09, 2023 Assessment & Plan (1) Hematuria: Plan: 77 M with PMH prostate cancer s/p TURP, radiation, CKD 3, and COPD, who presents from wound care clinic with gross hematuria. Now admitted, awaiting further evaluation by urology. Irradiation cystitis with hematuria. 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 Gross hematuria following days of urinary retention. -Symptoms have improved since insertion of Devlin catheter. Hgb 9.7. Afebrile. No leukocytosis. - Devlin catheter with manually flush irrigation as needed for obstruction. - Appreciate urology recommendations - Pending Ct abdomen/pelvis wo contrast -Continue manually irrigation as needed for clots, retention, suprapubic pain - Follow hgb am Anemia -Chronic, 2/2 chronic blood loss due to the aforementioned cancer of the prostate. -Hemoglobin remains stable (9.7) -Continue iron sulfate tablets every other day (home medication) - Follow labs am COPD -Chronic. Well-controlled on Trelegy, Singulair, as needed albuterol inhalers -Continue home regimen - Oxygen Sat:100% at room air Mild cognitive impairment -No record of this in patient's chart, or in scanned documents from his PCP at [facility]. -Patient himself states he was previously on Prevagen but was switched to memantine due to vivid dreams. * Continue home donepezil, memantine. Code: Full code Dispo: Med-Surg telemetry FEN/GI: Heart Healthy DVT Prophylaxis: SCD PT/OT: Yes Consults: Urology Case Management: No (2) Radiation cystitis: (3) Anemia: (4) COPD (chronic obstructive pulmonary disease): (5) Mild cognitive impairment, so stated: Admission and Anticipated Discharge Date Admission Date: April 09, 2023 Supervising Physician Co-Signing Physician Notes Resident Physician Supervision Note: I independently interviewed and examined the patient and verified the michel history and physical, reviewed labs and image studies and agree with resident findings and care plan. Job Otero is a 77-year-old man with a history of prostate cancer (2013, s/p TURP, radiation in 2019), Bradley's disease, and CKD 3, who presents to the hospital from the wound care clinic, where he was receiving hyperbaric oxygen treatments for radiation cystitis. He was sent over due to persistent dario hematuria. Patient was discharged from the emergency room yesterday afternoon after initially presenting with a complaint of urinary retention. He has a long history of hematuria, and had recently been passing large blood clots. Urinalysis at previous ED visit showed no evidence of UTI. Patient evaluated at bedside, found AAOx2 in no acute distress. He refers pain improved with the Devlin. Denied any complain at the moment. Devlin with gross hematuria Review of Systems Review of Systems: As per HPI Physical Exam Physical Exam: General: No acute distress HEENT: PE RRLA. Normal conju nctiva, anicteric sclera. Oropharynx normal. Respirato ry: Normal respira tory effort, CTABL . Cardiovascular: RRR without murmur s, gallops, or rub s. No pedal edema. GI: Soft, nondist ended abdomen.. A ll other quadrants nontender to palp ation. Neuro: Aler t and oriented x3. Results & Data Results & Data Vital Signs (Past 12 Hours) Vital Signs Temp Pulse Pulse Resp BP BP Pulse Ox 04/09/23 05:26 75 16 144/72 H 98 04/09/23 05:15 72 04/09/23 03:30 71 13 139/74 98 04/09/23 03:00 71 18 150/76 H 100 04/09/23 02:30 70 17 148/73 H 98 04/09/23 02:00 72 13 145/85 H 99 04/09/23 01:30 75 16 145/80 H 04/09/23 00:37 69 18 154/79 H 100 04/09/23 00:14 36.6 C 86 18 175/77 H 100 O2 Del Method 04/09/23 05:26 Room Air 04/09/23 05:15 04/09/23 03:30 04/09/23 03:00 04/09/23 02:30 04/09/23 02:00 04/09/23 01:30 04/09/23 00:37 Room Air 04/09/23 00:14 Room Air Resident Activity Tracking Resident Involvement: Resident Care Provided Care Provided: Adult Hospital Medicine (1) Hematuria Hematuria type: gross Qualified Code(s): R31.0 - Gross hematuria (3) Anemia Anemia type: unspecified type Qualified Code(s): D64.9 - Anemia, unspecified
[2023-04-09] MEDS: FERROUS SULFATE 325 MG TAB PO SCH (08:57)
[2023-04-09] MEDS: MEMANTINE HCL 10 MG TAB PO SCH ×2 (08:58→20:20)
[2023-04-09] MEDS: MONTELUKAST SODIUM 10 MG TABLET PO SCH (08:58)
[2023-04-09] MEDS: HYDROCORTISONE 10 MG TAB PO SCH ×2 (08:58→17:14)
[2023-04-09] MEDS: ASCORBIC ACID 500 MG TAB PO SCH (08:58)
[2023-04-09] MEDS: CEROVITE ADV FORMULA TAB PO SCH (08:58)
[2023-04-09] MEDS ORDERED: NON-FORMULARY MEDICATION (Vitamin E 268 mg (400 unit) Capsule) PO SCH (09:00)
--- NOTE | 2023-04-09 10:08 | Urology Progress Note ---
Date of Service April 09, 2023 Assessment & Plan (1) Hematuria: (2) Radiation cystitis: (3) Acute urinary retention: Plan 77yo/M with a history of prostate cancer status post radiation therapy currently undergoing hyperbaric oxygen therapy admitted with urinary retention, gross hematuria. Afebrile and hemodynamically stable. Labs reviewed-WBC 7.42, hemoglobin 9.7, creatinine 1.91. Urine culture 04/07 more than 3 types of organisms present all high counts, repeat UCx 04/08 and 04/09 pending. Devlin catheter placed in the ED, currently draining dark red urine. Symptoms have significantly improved since catheter placement. Continue to monitor. Can manually irrigate catheter as needed for clots, retention, suprapubic pain. Hemoglobin stable -Continue to trend labs. Continue supportive care. Will also get imaging with CT abdomen pelvis wo con Urology will follow. Admission and Anticipated Discharge Date Admission Date: April 09, 2023 Subjective Patient examined at bedside this AM in the ED. Awake, resting in bed eating breakfast on arrival. No acute distress. Devlin intact, draining dark red urine. No clots visualized at time of exam. Patient reports feeling much better since Devlin catheter placement. Denies bladder pain or pressure at present. Denies fevers, chills, nausea, vomiting. No longer on anticoagulation. He did have an IVC filter placed by Dr. Calderon on 12/28/2022. Review of Systems Constitutional: as per Subjective / HPI Gastrointestinal: as per Subjective / HPI Genitourinary: + as per Subjective / HPI Physical Exam Constitutional: no acute distress Respiratory: no respiratory distress and no labored breathing Skin: No visible rashes or lesions to exposed skin areas Neurologic: awake Psychiatric: A+Ox3, euthymic affect Genitourinary: Devlin catheter intact, urine is dark red Results & Data Vital Signs (Past 12 Hours) Vital Signs Temp Pulse Pulse Resp BP BP Pulse Ox 04/09/23 07:30 76 18 123/65 100 04/09/23 07:13 74 04/09/23 05:26 75 16 144/72 H 98 04/09/23 05:15 72 04/09/23 03:30 71 13 139/74 98 04/09/23 03:00 71 18 150/76 H 100 04/09/23 02:30 70 17 148/73 H 98 04/09/23 02:00 72 13 145/85 H 99 04/09/23 01:30 75 16 145/80 H 04/09/23 00:37 69 18 154/79 H 100 04/09/23 00:14 36.6 C 86 18 175/77 H 100 O2 Del Method 04/09/23 07:30 Room Air 04/09/23 07:13 04/09/23 05:26 Room Air 04/09/23 05:15 04/09/23 03:30 04/09/23 03:00 04/09/23 02:30 04/09/23 02:00 04/09/23 01:30 04/09/23 00:37 Room Air 04/09/23 00:14 Room Air PG Care Time/CCT Total # of Minutes Spent Total Time Spent with Patient: Total time spent is greater than 50% in coordination of care (as documented) at patient's floor/unit and/or counseling patient: Coding Level of Care Code None Diagnoses Hematuria R31.0 Hematuria type: gross Radiation cystitis N30.40 Acute urinary retention R33.8 (1) Hematuria Hematuria type: gross Qualified Code(s): R31.0 - Gross hematuria
--- NOTE | 2023-04-09 11:55 | CT Scan Report ---
CT OF THE ABDOMEN AND PELVIS WITHOUT CONTRAST CLINICAL HISTORY: Gross hematuria. COMPARISON STUDY: CT of the abdomen and pelvis December 12, 2022 and renal ultrasound December 22, 2022. TECHNIQUE: Axial images of the abdomen and pelvis were obtained without IV contrast. Images were revi ewed in the axial, sagittal, and coronal planes. Automated exposure control was utilized for the carter dy. A dose lowering technique was utilized adhering to the principles of ALARA. FINDINGS: Lung bases are unremarkable. No pneumatosis, free air or portal venous gas is present. Unen hanced images of the liver, spleen, adrenal glands and pancreas are unremarkable. There is a 2 mm rig ht renal calculus. No ureteral calculi are present. There is no hydronephrosis. No upper tract urothe lial lesions are identified on unenhanced exam. Devlin balloon within the bladder is noted. Hyperdense material within the bladder represents a small amount of hemorrhage. Bladder wall thickening with ad jacent stranding is unchanged. The appearance of the bladder is similar to CT of December 12, 2022. Blad yefri diverticula are present. There is no lymphadenopathy. There is no evidence for a bowel obstructio n. IVC filter is in place. Fiducial markers within the prostate are incidentally noted. 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 IMPRESSION: 1. 2 mm right renal calculi. No ureteral calculi or hydronephrosis. 2. No change in appearance of the bladder since CT of December 12, 2022. Devlin balloon and a small amoun t of clot within the bladder with persistent bladder wall thickening and adjacent stranding. The find ings suggest cystitis. ACT 112: Negative or not required by law. Electronically signed by: Boris Keys M.D. 04/09/2023 11:53 AM
[2023-04-09] MEDS: CHOLECALCIFEROL 5,000 UNITS 125 MCG TAB PO SCH (20:20)
[2023-04-09] MEDS: DONEPEZIL HCL 10 MG TAB PO SCH (20:20)
[2023-04-09] MEDS: FLUTICASONE FUROATE 200MCG 14 PUFFS/INHALER INH SCH (20:22)
[2023-04-09] MEDS: UMECLIDINIUM/VILANTEROL 62.5/25MCG 7 PUFFS/INHALER INH SCH (20:22)
[2023-04-09] MEDS ORDERED: NON-FORMULARY MEDICATION (Fluticasone-Umeclidin-Vilanter [Trelegy Ellipta] 200-62.5-25 mcg INH SCH (21:00)
[2023-04-10 06:45] LABS: Hematocrit (blood only) 26.2 % (42.0-52.0); Hemoglobin 8.3 g/dl (14.0-18.0); Mean Corpuscular Hemoglobin 28.5 pg (25.0-34.0); Mean Corpuscular Hgb Conc 31.7 g/dL (32.0-36.0); Mean Platelet Volume 9.2 fL (9.4-12.4); Platelet Count 203 K/uL (130-400); RDW Coefficient of Variation 15.9 % (11.5-14.5); RDW Standard Deviation 51.8 fL (36.4-46.3); Red Blood Count 2.91 M/uL (4.70-6.10); White Blood Count 5.79 K/ul (4.8-10.8)
--- NOTE | 2023-04-10 07:10 | Hospitalist Progress Note ---
Date of Service April 10, 2023 Assessment & Plan (1) Hematuria: (2) Anemia: (3) Radiation cystitis: (4) COPD (chronic obstructive pulmonary disease): (5) Mild cognitive impairment, so stated: Plan 77 M with PMH prostate cancer s/p TURP, radiation, CKD 3, and COPD, who presents from wound care clinic with gross hematuria. Now admitted, awaiting further evaluation by urology. Irradiation cystitis with hematuria. 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 Gross hematuria following days of urinary retention. - Devlin catheter placed - drained clots - Urology -Continue manually irrigation as needed for clots, retention, suprapubic pain - supportive management -CT abdomen/pelvis: Findings suggestive to cystitis --Urine culture negative - Follow CBC and serial H/h Anemia -Chronic, 2/2 chronic blood loss due to the aforementioned cancer of the prostate. -Hemoglobin remains stable (8.3) -h/h at noon: hgb 8.9 -Continue iron sulfate tablets every other day (home medication) - Follow labs am and serial H/h COPD -Chronic. Well-controlled on Trelegy, Singulair, as needed albuterol inhalers -Continue home regimen - Oxygen Sat: 98% at room air Mild cognitive impairment -No record of this in patient's chart, or in scanned documents from his PCP at [facility]. -Patient himself states he was previously on Prevagen but was switched to memantine due to vivid dreams. * Continue home donepezil, memantine. [place] Disease' -Vitals stable. -continue home dose hydrocortisone 20mgs am, 10mgs pm. Code:Full code Dispo:Med-Surg telemetry FEN/GI:Heart Healthy DVT Prophylaxis:SCD PT/OT:Yes Consults:Urology Case Management:No Admission and Anticipated Discharge Date Admission Date: April 09, 2023 Supervising Physician Co-Signing Physician Notes Resident Physician Supervision Note: I independently interviewed and examined the patient and verified the michel history and physical, reviewed labs and image studies and agree with resident findings and care plan. Job Otero is a 77-year-old man with a history of prostate cancer (2014, s/p TURP, radiation in 2019), [place]'s disease, and CKD 3, who presents to the hospital from the wound care clinic, where he was receiving hyperbaric oxygen treatments for radiation cystitis. He was sent over due to persistent dario hematuria. Patient was discharged from the emergency room yesterday afternoon after initially presenting with a complaint of urinary retention. He has a long history of hematuria, and had recently been passing large blood clots. Urinalysis at previous ED visit showed no evidence of UTI. Patient evaluated at bedside, found AAOx2 in no acute distress. He refers pain improved with the Devlin. Denied any complain at the moment. Devlin with gross hematuria Review of Systems Review of Systems: As per hpi Physical Exam Constitutional: no acute distress ENMT: external ear and nose normal, oropharynx normal Respiratory: no respiratory distress and no labored breathing Cardiovascular: RRR, no murmur, no edema Gastrointestinal (Abdomen): normal bowel sounds, soft, nontender, no hepatosplenomegaly Skin: No visible rashes or lesions to exposed skin areas Neurologic: awake Psychiatric: A+Ox3, euthymic affect Genitourinary: Devlin catheter intact, urine is dark red Results & Data Results & Data Vital Signs (Past 12 Hours) Vital Signs Temp Pulse Pulse Resp BP Pulse Ox O2 Del Method 04/10/23 03:39 37 C 70 16 126/72 97 Room Air 04/10/23 00:55 75 04/09/23 23:07 37 C 73 18 122/67 97 Room Air Resident Activity Tracking Resident Involvement: Resident Care Provided Care Provided: Adult Hospital Medicine (1) Hematuria Hematuria type: gross Qualified Code(s): R31.0 - Gross hematuria (2) Anemia Anemia type: unspecified type Qualified Code(s): D64.9 - Anemia, unspecified
[2023-04-10 07:14] LABS: BUN Creatinine Ratio 12.7 (10-20); Calcium 8.2 mg/dl (8.6-10.3); Creatinine Clr Calc Pharmacy 60.3 ml/min; Est GFR (African American) 55.2 ml/min; Est GFR (Non-African American) 47.6 ml/min; Phosphorus 3.2 mg/dl (2.5-4.9); Potassium 3.7 mmol/L (3.5-5.1)
[2023-04-10] MEDS: CEROVITE ADV FORMULA TAB PO SCH (09:48)
[2023-04-10] MEDS: HYDROCORTISONE 10 MG TAB PO SCH ×2 (09:49→17:27)
[2023-04-10] MEDS: MEMANTINE HCL 10 MG TAB PO SCH ×2 (09:49→21:29)
[2023-04-10] MEDS: ASCORBIC ACID 500 MG TAB PO SCH (09:49)
[2023-04-10] MEDS: MONTELUKAST SODIUM 10 MG TABLET PO SCH (09:49)
[2023-04-10 12:41] LABS: Hematocrit (blood only) 28.9 % (42.0-52.0); Hemoglobin 8.9 g/dl (14.0-18.0)
[2023-04-10 18:38] LABS: Hematocrit (blood only) 29.5 % (42.0-52.0); Hemoglobin 9.4 g/dl (14.0-18.0)
[2023-04-10] MEDS: DONEPEZIL HCL 10 MG TAB PO SCH (21:29)
[2023-04-10] MEDS: CHOLECALCIFEROL 5,000 UNITS 125 MCG TAB PO SCH (21:30)
[2023-04-10] MEDS: UMECLIDINIUM/VILANTEROL 62.5/25MCG 7 PUFFS/INHALER INH SCH (23:02)
[2023-04-10] MEDS: FLUTICASONE FUROATE 200MCG 14 PUFFS/INHALER INH SCH (23:03)
[2023-04-11 07:43] LABS: Hematocrit (blood only) 26.1 % (42.0-52.0); Hemoglobin 8.3 g/dl (14.0-18.0); Mean Corpuscular Hemoglobin 28.8 pg (25.0-34.0); Mean Corpuscular Hgb Conc 31.8 g/dL (32.0-36.0); Mean Corpuscular Volume 90.6 fL (80.0-100.0); Mean Platelet Volume 9.5 fL (9.4-12.4); Platelet Count 214 K/uL (130-400); RDW Coefficient of Variation 15.6 % (11.5-14.5); RDW Standard Deviation 51.7 fL (36.4-46.3); Red Blood Count 2.88 M/uL (4.70-6.10); White Blood Count 6.41 K/ul (4.8-10.8)
[2023-04-11 07:44] LABS: BUN Creatinine Ratio 11.9 (10-20); Calcium 8.5 mg/dl (8.6-10.3); Creatinine Clr Calc Pharmacy 63.9 ml/min; Est GFR (African American) 59.2 ml/min; Est GFR (Non-African American) 51.1 ml/min; Phosphorus 3.2 mg/dl (2.5-4.9); Potassium 3.7 mmol/L (3.5-5.1)
--- NOTE | 2023-04-11 08:16 | Hospitalist Progress Note ---
Date of Service April 11, 2023 Assessment & Plan (1) Hematuria: (2) Anemia: (3) Radiation cystitis: (4) COPD (chronic obstructive pulmonary disease): (5) Mild cognitive impairment, so stated: Plan 77 M with PMH prostate cancer s/p TURP, radiation, CKD 3, and COPD, who presents from wound care clinic with gross hematuria. Now admitted, awaiting further evaluation by urology. Irradiation cystitis with hematuria. 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 Gross hematuria following days of urinary retention. -Currently on Hyperbaric oxygen treatment . Next appointment on Wednesday - Devlin catheter placed - drained clots - Urology -Continue manually irrigation as needed for clots, retention, suprapubic pain - supportive management -CT abdomen/pelvis: Findings suggestive to cystitis --Urine culture negative - Hgb stable at 8.3/ V/S stable Anemia -Chronic, 2/2 chronic blood loss due to the aforementioned cancer of the prostate. -Hemoglobin remains stable (8.3) -h/h at 12:00 am: hgb 9.3 -Continue iron sulfate tablets every other day (home medication) - Follow labs am and serial H/h COPD -Chronic. Well-controlled on Trelegy, Singulair, as needed albuterol inhalers -Continue home regimen - Oxygen Sat: 98% at room air Mild cognitive impairment -No record of this in patient's chart, or in scanned documents from his PCP at [facility]. -Patient himself states he was previously on Prevagen but was switched to memantine due to vivid dreams. * Continue home donepezil, memantine. [place] Disease' -Vitals stable. -continue home dose hydrocortisone 20mgs am, 10mgs pm. Code:Full code Dispo:Med-Surg telemetry FEN/GI:Heart Healthy DVT Prophylaxis:SCD PT/OT:Yes Consults:Urology Case Management:No Admission and Anticipated Discharge Date Admission Date: April 09, 2023 Job Otero is a 77-year-old man with a history of prostate cancer (2014, s/p TURP, radiation in 2019), [place]'s disease, and CKD 3, who presents to the hospital from the wound care clinic, where he was receiving hyperbaric oxygen treatments for radiation cystitis. He was sent over due to persistent dario hematuria. Patient was discharged from the emergency room yesterday afternoon after initially presenting with a complaint of urinary retention. He has a long history of hematuria, and had recently been passing large blood clots. Urinalysis at previous ED visit showed no evidence of UTI. Patient evaluated at bedside, found AAOx2 in no acute distress. He refers pain improved with the Devlin. Denied any complain at the moment. Devlin with gross hematuria Review of Systems Review of Systems: As per hpi Physical Exam Constitutional: no acute distress ENMT: external ear and nose normal, oropharynx normal Respiratory: no respiratory distress and no labored breathing Cardiovascular: RRR, no murmur, no edema Gastrointestinal (Abdomen): normal bowel sounds, soft, nontender, no hepatosplenomegaly Skin: No visible rashes or lesions to exposed skin areas Neurologic: awake Psychiatric: A+Ox3, euthymic affect Genitourinary: Devlin catheter intact, urine is dark red Results & Data Results & Data Vital Signs (Past 12 Hours) Vital Signs Temp Pulse Pulse Resp BP BP Pulse Ox 04/11/23 07:55 36.7 C 66 19 133/76 99 04/11/23 07:32 63 04/11/23 03:36 37 C 62 18 136/74 96 04/10/23 23:11 36.9 C 65 18 145/80 H 98 O2 Del Method 04/11/23 07:55 Room Air 04/11/23 07:32 04/11/23 03:36 Room Air 04/10/23 23:11 Room Air (1) Hematuria Hematuria type: gross Qualified Code(s): R31.0 - Gross hematuria (2) Anemia Anemia type: unspecified type Qualified Code(s): D64.9 - Anemia, unspecified
[2023-04-11] MEDS: MEMANTINE HCL 10 MG TAB PO SCH ×2 (08:55→20:31)
[2023-04-11] MEDS: CEROVITE ADV FORMULA TAB PO SCH (08:55)
[2023-04-11] MEDS: ASCORBIC ACID 500 MG TAB PO SCH (09:02)
[2023-04-11] MEDS: FERROUS SULFATE 325 MG TAB PO SCH (09:02)
[2023-04-11] MEDS: MONTELUKAST SODIUM 10 MG TABLET PO SCH (09:02)
[2023-04-11] MEDS: HYDROCORTISONE 10 MG TAB PO SCH ×2 (09:03→18:14)
--- NOTE | 2023-04-11 12:05 | Discharge Summary ---
Date of Service April 11, 2023 Admission HPI Per Admitting Provider Branden is a 77-year-old man with a history of prostate cancer (2014, s/p TURP, radiation in 2019), Bradley's disease, and CKD 3, who presents to the hospital from the wound care clinic, where he was receiving hyperbaric oxygen treatments for radiation cystitis. He was sent over due to persistent dario hematuria. Patient was discharged from the emergency room yesterday afternoon after initially presenting with a complaint of urinary retention. He has a long history of hematuria, and had recently been passing large blood clots. Urinalysis at previous ED visit showed no evidence of UTI. In the ED, vitals were mostly stable and within normal limits. He has hemoglobin of 9.7, which is stable from 9.1 two days prior. WBC count was normal. Cr is 1.91, which is slightly above his baseline. Urinalysis showed no signs of UTI. He received a 500 mL bolus of normal saline and hospitalist service was consulted for admission. ED physician also discussed case with urology, who will evaluate in the morning. On admission, he denies headache, shortness of breath, chest pain, abdominal pain, nausea, or back pain. Discharge Data Allergies Allergy/AdvReac Type Severity Reaction Status Date / Time Iodinated Contrast Media Allergy Severe CARDIAC Verified 04/08/23 08:[address] CONTRAST clindamycin Allergy Unknown Unknown Verified 04/08/23 08:49 chocolate flavor AdvReac Severe Cannot Unverified 04/08/23 08:49 take, interacts w/ medications. cranberry AdvReac Severe Cannot Unverified 04/08/23 08:49 take, interacts w/ medications. Consultations 04/09/23 02:30 ED Decision to Admit Stat 04/09/23 16:52 Consult Urology Routine Ordered Studies 04/09/23 10:57 CT abd pelvis wo con Routine Discharge Plan Discharge Items Patient Disposition: Home - Self-Care Reason For Visit: GROSS HEMATURIA Discharge Diagnosis: Gross hematuria related to Radiation Cystitis Activity: Resume your previous activity Non-emergency contact: Primary Care Provider and Urologist Call non-emergency contact if: you have any medication questions, your symptoms worsen and your pain is not controlled Follow-up/Referrals: Deondre Hill MD [Primary Care Provider] - (PLEASE CALL YOUR PRIMARY CARE PROVIDER TO SCHEDULE A HOSPITAL DISCHARGE FOLLOW-UP WITHIN 7-10 DAYS) Diet: Regular Addtl Attending Provider Instructions: You were here admitted do to gross hematuria (blood in the urine) and related pain. It seem that the pain was occasioned by blood clots that caused acute urinary retention. Your symptoms improved after Devlin catheter was placed and irrigation. Your hemoglobin was stable at 8.3 during your admission. You will need to follow with Urology outpatient, the office will call you for more information about your appointment. Continue your hyperbaric oxygen therapy as schedule Follow up with your PCP within a week with a CBC (blood work), to follow up your Hemoglobin. No change in your current medication list was change during these admission. Pending Studies at Discharge: No Stand-Alone Forms: My [facility] [employer], Smoking Cessation Medications and DC Order Prescriptions: Continued oxymetazoline [Afrin (oxymetazoline)] 0.05 % spray,non-aerosol 2 spray intranasal Q12H PRN (Reason: Nasal Congestion) Rx Instructions: prior to hbo treatment for nasal congestion epinephrine 0.3 mg/0.3 mL auto-injector 0.3 mg IM Q4H PRN (Reason: anaphylaxis) memantine 10 mg tablet 10 mg PO BID hydrocortisone 5 mg tablet See Rx Instructions .ROUTE .COMPLEX 90 Days Qty: 450 0RF Rx Instructions: 20 mg 09:30 after breakfast, 10 mg at dinner cholecalciferol (vitamin D3) 125 mcg (5,000 unit) capsule 125 mcg PO QPM donepezil 10 mg tablet 10 mg PO QPM multivitamin with minerals Capsule 1 cap PO DAILY albuterol sulfate 90 mcg/actuation HFA aerosol inhaler 2 puff inhalation Q6H PRN (Reason: shortness of breath or wheezing) Qty: 8.5 2RF montelukast 10 mg tablet 10 mg PO DAILY fluticasone propionate 50 mcg/actuation spray,suspension 2 spray INTRANASAL DAILY PRN (Reason: allergies) Trelegy Ellipta 200-62.5-25 mcg blister with device 1 inh INHALATION QPM acetaminophen [Tylenol 8 Hour] 650 mg tablet extended release 650 mg PO Q8H PRN (Reason: pain (scale score 1-3)) Qty: 10 0RF vitamin E [Vitamin E-400] 268 mg (400 unit) Capsule 268 mg PO DAILY ondansetron 4 mg tablet,disintegrating 4 mg PO Q6H PRN (Reason: nausea and vomiting) Qty: 14 0RF ascorbic acid (vitamin C) [Vitamin C] 1,000 mg Tablet 1,000 mg PO QAM ferrous sulfate 325 mg (65 mg iron) tablet,delayed release (DR/EC) 325 mg PO .EVERY OTHER DAY sennosides-docusate sodium [Senokot-S] 8.6-50 mg tablet 1 - 2 tab-cap PO BID PRN (Reason: constipation) Qty: 60 2RF Discharge Orders: Discharge Order (Routine); Ordered 04/11/23 Ordered By: Noe Nina Admission Data Admit Date/Time: 04/09/23 02:57 Attending Provider: Jessica Charles Admit Provider: Gordo Jaramillo Primary Care Provider: Deondre Hill Other Providers: Hanna Villanueva ; Heath Jackson.
--- NOTE | 2023-04-11 16:01 | Hospitalist Progress Note ---
Date of Service April 11, 2023 Assessment & Plan (1) Hematuria: (2) Anemia: (3) Radiation cystitis: (4) COPD (chronic obstructive pulmonary disease): (5) Mild cognitive impairment, so stated: Plan 77 M with PMH prostate cancer s/p TURP, radiation, CKD 3, and COPD, who presents from wound care clinic with gross hematuria. Now admitted, awaiting further evaluation by urology. Irradiation cystitis with hematuria. 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 Gross hematuria following days of urinary retention. - Tatum catheter placed - drained clots -CT abdomen/pelvis: Findings suggestive to cystitis - Urology -Continue manually irrigation as needed for clots, retention, suprapubic pain - supportive management - Urine culture negative - Follow CBC am - will coordinate with urology regarding f/u/HBO continued treatment/home tatum flushing Anemia -Acute on Chronic, 2/2 chronic blood loss due to the aforementioned cancer of the prostate. -Hemoglobin remains stable (8.3) -Continue iron sulfate tablets every other day (home medication) - Follow labs am COPD -Chronic. Well-controlled on Trelegy, Singulair, as needed albuterol inhalers -Continue home regimen - Oxygen Sat: 98% at room air Mild cognitive impairment -No record of this in patient's chart, or in scanned documents from his PCP at [facility]. -Patient himself states he was previously on Prevagen but was switched to memantine due to vivid dreams. * Continue home donepezil, memantine. [place] Disease' -Vitals stable. -continue home dose hydrocortisone 20mgs am, 10mgs pm. Code:Full code Dispo:Med-Surg telemetry FEN/GI:Heart Healthy DVT Prophylaxis:SCD PT/OT:Yes Consults:Urology Case Management:No Admission and Anticipated Discharge Date Admission Date: April 09, 2023 Supervising Physician Co-Signing Physician Notes Resident Physician Supervision Note: I independently interviewed and examined the patient and verified the michel history and physical, reviewed labs and image studies and agree with resident findings and care plan. Job Otero is a 77-year-old man with a history of prostate cancer (2014, s/p TURP, radiation in 2019), Bradley's disease, and CKD 3, who presents to the hospital from the wound care clinic, where he was receiving hyperbaric oxygen treatments for radiation cystitis. He was sent over due to persistent dario hematuria. Patient was discharged from the emergency room yesterday afternoon after initially presenting with a complaint of urinary retention. He has a long history of hematuria, and had recently been passing large blood clots. Urinalysis at previous ED visit showed no evidence of UTI. Patient evaluated at bedside, found AAOx2 in no acute distress. He refers pain improved with the Tatum. Denied any complain at the moment. Tatum with gross hematuria Review of Systems Review of Systems: As per HPI Physical Exam Constitutional: no acute distress ENMT: external ear and nose normal, oropharynx normal Respiratory: no respiratory distress and no labored breathing Cardiovascular: RRR, no murmur, no edema Gastrointestinal (Abdomen): normal bowel sounds, soft, nontender, no hepatosplenomegaly Skin: No visible rashes or lesions to exposed skin areas Neurologic: awake Psychiatric: A+Ox3, euthymic affect Genitourinary: Tatum catheter intact, urine is dark red Results & Data Results & Data Vital Signs (Past 12 Hours) Vital Signs Temp Pulse Pulse Pulse Resp BP BP 04/11/23 15:57 36.8 C 74 19 139/73 04/11/23 13:48 36.9 C 65 66 19 133/76 128/72 04/11/23 11:48 36.9 C 65 19 128/72 04/11/23 07:55 36.7 C 66 19 133/76 04/11/23 07:32 63 Pulse Ox O2 Del Method 04/11/23 15:57 99 Room Air 04/11/23 13:48 100 04/11/23 11:48 100 Room Air 04/11/23 07:55 99 Room Air 04/11/23 07:32 Resident Activity Tracking Resident Involvement: Resident Care Provided Care Provided: Adult Hospital Medicine (1) Hematuria Hematuria type: gross Qualified Code(s): R31.0 - Gross hematuria (2) Anemia Anemia type: unspecified type Qualified Code(s): D64.9 - Anemia, unspecified
[2023-04-11] MEDS: FLUTICASONE FUROATE 200MCG 14 PUFFS/INHALER INH SCH (20:30)
[2023-04-11] MEDS: UMECLIDINIUM/VILANTEROL 62.5/25MCG 7 PUFFS/INHALER INH SCH (20:30)
[2023-04-11] MEDS: DONEPEZIL HCL 10 MG TAB PO SCH (20:31)
[2023-04-11] MEDS: CHOLECALCIFEROL 5,000 UNITS 125 MCG TAB PO SCH (20:31)
[2023-04-12 06:07] LABS: Hematocrit (blood only) 26.2 % (42.0-52.0); Hemoglobin 8.5 g/dl (14.0-18.0); Mean Corpuscular Hemoglobin 28.7 pg (25.0-34.0); Mean Corpuscular Hgb Conc 32.4 g/dL (32.0-36.0); Mean Corpuscular Volume 88.5 fL (80.0-100.0); Mean Platelet Volume 9.4 fL (9.4-12.4); Platelet Count 242 K/uL (130-400); RDW Coefficient of Variation 15.5 % (11.5-14.5); RDW Standard Deviation 50.4 fL (36.4-46.3); Red Blood Count 2.96 M/uL (4.70-6.10); White Blood Count 6.57 K/ul (4.8-10.8)
[2023-04-12 06:29] LABS: BUN Creatinine Ratio 10.1 (10-20); Calcium 8.6 mg/dl (8.6-10.3); Est GFR (African American) 57.2 ml/min; Est GFR (Non-African American) 49.3 ml/min; Magnesium 1.8 mg/dl (1.7-2.4); Phosphorus 3.6 mg/dl (2.5-4.9); Potassium 3.8 mmol/L (3.5-5.1)
--- NOTE | 2023-04-12 06:52 | Hospitalist Progress Note ---
Date of Service April 12, 2023 Assessment & Plan (1) Hematuria: (2) Anemia: (3) Radiation cystitis: (4) COPD (chronic obstructive pulmonary disease): (5) Mild cognitive impairment, so stated: Plan 77 M with PMH prostate cancer s/p TURP, radiation, CKD 3, and COPD, who presents from wound care clinic with gross hematuria. Now admitted, awaiting further evaluation by urology. Irradiation cystitis with hematuria. 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 Gross hematuria following days of urinary retention. - Tatum catheter placed - drained clots -CT abdomen/pelvis: Findings suggestive to cystitis - Urology -Continue manually irrigation as needed for clots, retention, suprapubic pain - supportive management - Urine culture negative - Follow CBC am - will coordinate with urology regarding f/u/HBO continued treatment/home tatum flushing Anemia -Acute on Chronic, 2/2 chronic blood loss due to the aforementioned cancer of the prostate. -Hemoglobin remains stable (8.3) -Continue iron sulfate tablets every other day (home medication) - Follow labs am COPD -Chronic. Well-controlled on Trelegy, Singulair, as needed albuterol inhalers -Continue home regimen - Oxygen Sat: 98% at room air Mild cognitive impairment -No record of this in patient's chart, or in scanned documents from his PCP at [facility]. -Patient himself states he was previously on Prevagen but was switched to memantine due to vivid dreams. * Continue home donepezil, memantine. [place] Disease' -Vitals stable. -continue home dose hydrocortisone 20mgs am, 10mgs pm. Code:Full code Dispo:Med-Surg telemetry FEN/GI:Heart Healthy DVT Prophylaxis:SCD PT/OT:Yes Consults:Urology Case Management:No Admission and Anticipated Discharge Date Admission Date: April 09, 2023 Job Otero is a 77-year-old man with a history of prostate cancer (2014, s/p TURP, radiation in 2019), Bradley's disease, and CKD 3, who presents to the hospital from the wound care clinic, where he was receiving hyperbaric oxygen treatments for radiation cystitis. He was sent over due to persistent dario hematuria. Patient was discharged from the emergency room yesterday afternoon after initially presenting with a complaint of urinary retention. He has a long history of hematuria, and had recently been passing large blood clots. Urinalysis at previous ED visit showed no evidence of UTI. Patient evaluated at bedside, found AAOx2 in no acute distress. He refers pain improved with the Tatum. Denied any complain at the moment. Tatum with gross hematuria Physical Exam Constitutional: no acute distress ENMT: external ear and nose normal, oropharynx normal Respiratory: no respiratory distress and no labored breathing Cardiovascular: RRR, no murmur, no edema Gastrointestinal (Abdomen): normal bowel sounds, soft, nontender, no hepatosplenomegaly Neurologic: awake Psychiatric: A+Ox3, euthymic affect Results & Data Results & Data Vital Signs (Past 12 Hours) Vital Signs Temp Pulse Pulse Pulse Resp BP Pulse Ox 04/12/23 04:58 68 04/12/23 04:58 04/12/23 03:01 36.7 C 65 18 129/68 97 04/11/23 23:25 37 C 67 18 118/66 97 04/11/23 19:35 36.9 C 74 16 158/71 H 99 O2 Del Method 04/12/23 04:58 04/12/23 04:58 Room Air 04/12/23 03:01 Room Air 04/11/23 23:25 Room Air 04/11/23 19:35 Room Air (1) Hematuria Hematuria type: gross Qualified Code(s): R31.0 - Gross hematuria (2) Anemia Anemia type: unspecified type Qualified Code(s): D64.9 - Anemia, unspecified
[2023-04-12] MEDS: CEROVITE ADV FORMULA TAB PO SCH (08:53)
[2023-04-12] MEDS: HYDROCORTISONE 10 MG TAB PO SCH ×2 (08:53→16:51)
[2023-04-12] MEDS: MEMANTINE HCL 10 MG TAB PO SCH (08:53)
[2023-04-12] MEDS: MONTELUKAST SODIUM 10 MG TABLET PO SCH (08:53)
[2023-04-12] MEDS: ASCORBIC ACID 500 MG TAB PO SCH (08:54)
--- NOTE | 2023-04-12 08:58 | Urology Progress Note ---
Date of Service April 12, 2023 Assessment & Plan (1) Hematuria: (2) Radiation cystitis: Plan: 77yo/M with a history of prostate cancer status post radiation therapy currently undergoing hyperbaric oxygen therapy admitted with urinary retention, gross hematuria. Afebrile and hemodynamically stable. Labs reviewed-WBC 6.57, hemoglobin 8.5, creatinine 1.38. UCx 04/09 showed no growth. Devlin catheter patent draining maroon urine. Can manually irrigate catheter as needed for clots, retention, suprapubic pain. Plan to maintain catheter upon discharge, likely remove in urology office later this week. Continue supportive care and medical management per hospital medicine. Resume hyperbaric oxygen therapy as scheduled. Spoke to patient's via telephone, all questions answered. Plan of care reviewed with Dr. Jackson. Will arrange outpatient follow-up with urology this week. Admission and Anticipated Discharge Date Admission Date: April 09, 2023 Subjective Patient seen and examined at bedside this morning, chart reviewed Subjectively doing okay at present Reports awakening with some disorientation early this am Denies abdominal or suprapubic discomfort Devlin patent and draining maroon urine No manual irrigation required overnight Denies nausea, vomiting, fever, or chills Spoke to over the phone while at bedside, questions answered Review of Systems Constitutional: as per Subjective / HPI Gastrointestinal: as per Subjective / HPI Genitourinary: + as per Subjective / HPI Physical Exam Physical Exam: General: no acute distress HEENT: Normocephalic Pulmonary: Nonlabored respirations Abdomen: Nondistended Extremities: Moves all 4 spontaneously Neuro: No gross deficits Psych: alert and oriented, normal mood Skin: Warm, dry : Devlin patent and draining dark red/maroon urine Results & Data Vital Signs (Past 12 Hours) Vital Signs Temp Pulse Pulse Pulse Resp BP BP 04/12/23 07:53 36.8 C 67 16 142/78 H 04/11/23 22:03 88 04/12/23 07:35 65 04/12/23 04:58 68 04/12/23 04:58 04/12/23 03:01 36.7 C 65 18 129/68 04/11/23 23:25 37 C 67 18 118/66 Pulse Ox O2 Del Method 04/12/23 07:53 98 Room Air 04/11/23 22:03 04/12/23 07:35 04/12/23 04:58 04/12/23 04:58 Room Air 04/12/23 03:01 97 Room Air 04/11/23 23:25 97 Room Air PG Care Time/CCT Total # of Minutes Spent Total Time Spent with Patient: Total time spent is greater than 50% in coordination of care (as documented) at patient's floor/unit and/or counseling patient: Coding Level of Care Code 09201 SUB INP/OBS CARE 09/09MIN Diagnoses Hematuria R31.0 Hematuria type: gross 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
--- NOTE | 2023-04-12 13:16 | Discharge Summary ---
Date of Service April 12, 2023 Admission HPI Per Admitting Provider Branden is a 77-year-old man with a history of prostate cancer (2014, s/p TURP, radiation in 2019), Bradley's disease, and CKD 3, who presents to the hospital from the wound care clinic, where he was receiving hyperbaric oxygen treatments for radiation cystitis. He was sent over due to persistent dario hematuria. Patient was discharged from the emergency room yesterday afternoon after initially presenting with a complaint of urinary retention. He has a long history of hematuria, and had recently been passing large blood clots. Urinalysis at previous ED visit showed no evidence of UTI. In the ED, vitals were mostly stable and within normal limits. He has hemoglobin of 9.7, which is stable from 9.1 two days prior. WBC count was normal. Cr is 1.91, which is slightly above his baseline. Urinalysis showed no signs of UTI. He received a 500 mL bolus of normal saline and hospitalist service was consulted for admission. ED physician also discussed case with urology, who will evaluate in the morning. On admission, he denies headache, shortness of breath, chest pain, abdominal pain, nausea, or back pain. Admission Exam Per Admitting Provider General: No acute distress HEENT: PERRLA. Normal conjunctiva, anicteric sclera. Oropharynx normal. Respiratory: Normal respiratory effort, CTABL. Cardiovascular: RRR without murmurs, gallops, or rubs. No pedal edema. GI: Soft, nondistended abdomen. Suprapubic tenderness to moderate palpation. All other quadrants nontender to palpation. Neuro: Alert and oriented x3. Principal Diagnosis Gross hematuria related to Radiation Cystitis Discharge Exam Constitutional WD/WN, vitals as above Eyes PERRL, conjunctivae normal, anicteric sclerae Respiratory normal respiratory effort, lungs clear to auscultation Cardiovascular RRR, no murmur, no edema Gastrointestinal (Abdomen) normal bowel sounds, soft, nontender, no hepatosplenomegaly Musculoskeletal no cyanosis or clubbing, extremities motor strength 5/5 Skin no rashes, warm and dry Neurologic PERRL, EOMI, accommodation nl, no face palsy, no dysarthria Genitourinary Tatum Catheter in place, draining dark red/ maroon urine Discharge Data Allergies Allergy/AdvReac Type Severity Reaction Status Date / Time Iodinated Contrast Media Allergy Severe CARDIAC Verified 04/08/23 08:[address] CONTRAST clindamycin Allergy Unknown Unknown Verified 04/08/23 08:49 chocolate flavor AdvReac Severe Cannot Unverified 04/08/23 08:49 take, interacts w/ medications. cranberry AdvReac Severe Cannot Unverified 04/08/23 08:49 take, interacts w/ medications. Consultations 04/09/23 02:30 ED Decision to Admit Stat 04/09/23 16:52 Consult Urology Routine Ordered Studies Microbiology 04/09/23 01:23 Urine,Indwelling Cath Urine Culture - Final No growth - less than 1,000 colonies/mL. Labs 04/09/23 04/09/23 04/09/23 00:50 00:50 01:23 WBC 7.42 RBC 3.37 L Hgb 9.7 L Hct 30.5 L MCV 90.5 MCH 28.8 MCHC 31.8 L RDW Std Deviation 52.5 H RDW Coeff of Robert 15.9 H Plt Count 246 MPV 9.7 Immature Gran % (Auto) 0.4 Neut % (Auto) 73.5 Lymph % (Auto) 17.1 [place] % (Auto) 7.3 Eos % (Auto) 1.2 Baso % (Auto) 0.5 Neut # (Auto) 5.45 Lymph # (Auto) 1.27 [place] # (Auto) 0.54 Eos # (Auto) 0.09 Baso # (Auto) 0.04 Immature Gran # (Auto) 0.03 Sodium 139 Potassium 4.1 Chloride 107 Carbon Dioxide 24 Anion Gap 8 BUN 28 H Creatinine 1.91 H Est Cr Clr Drug Dosing 44.5 Est GFR ( Amer) 38.6 Est GFR (Non-Af Amer) 33.3 BUN/Creatinine Ratio 14.7 Glucose 109 H Calcium 9.1 Phosphorus Magnesium Total Bilirubin 0.5 AST 14 ALT 12 Alkaline Phosphatase 68 Total Protein 6.6 Albumin 4.0 Globulin 2.6 Albumin/Globulin Ratio 1.5 Lipase 13 Urine Color Brown Urine Appearance Slightly Cloudy Urine pH Ur Specific Primrose 1.012 Urine Protein Urine Glucose (UA) Urine Ketones Urine Blood Urine Nitrite Urine Bilirubin Urine Urobilinogen Ur Leukocyte Esterase Urine RBC >30 H Urine WBC 10-30 H Ur Epithelial Cells 0-5 Urine Bacteria 1+ H 04/10/23 04/10/23 04/10/23 06:22 06:22 12:02 WBC 5.79 RBC 2.91 L Hgb 8.3 L 8.9 L Hct 26.2 L 28.9 L MCV 90.0 MCH 28.5 MCHC 31.7 L RDW Std Deviation 51.8 H RDW Coeff of Robert 15.9 H Plt Count 203 MPV 9.2 L Immature Gran % (Auto) Neut % (Auto) Lymph % (Auto) [place] % (Auto) Eos % (Auto) Baso % (Auto) Neut # (Auto) Lymph # (Auto) [place] # (Auto) Eos # (Auto) Baso # (Auto) Immature Gran # (Auto) Sodium 140 Potassium 3.7 Chloride 108 H Carbon Dioxide 27 Anion Gap 5 BUN 18 Creatinine 1.42 H D Est Cr Clr Drug Dosing 60.3 Est GFR ( Amer) 55.2 Est GFR (Non-Af Amer) 47.6 BUN/Creatinine Ratio 12.7 Glucose 93 Calcium 8.2 L Phosphorus 3.2 Magnesium 2.0 Total Bilirubin AST ALT Alkaline Phosphatase Total Protein Albumin Globulin Albumin/Globulin Ratio Lipase Urine Color Urine Appearance Urine pH Ur Specific Primrose Urine Protein Urine Glucose (UA) Urine Ketones Urine Blood Urine Nitrite Urine Bilirubin Urine Urobilinogen Ur Leukocyte Esterase Urine RBC Urine WBC Ur Epithelial Cells Urine Bacteria 04/10/23 04/11/23 04/11/23 18:20 06:22 06:22 WBC 6.41 RBC 2.88 L Hgb 9.4 L 8.3 L Hct 29.5 L 26.1 L MCV 90.6 MCH 28.8 MCHC 31.8 L RDW Std Deviation 51.7 H RDW Coeff of Robert 15.6 H Plt Count 214 MPV 9.5 Immature Gran % (Auto) Neut % (Auto) Lymph % (Auto) [place] % (Auto) Eos % (Auto) Baso % (Auto) Neut # (Auto) Lymph # (Auto) [place] # (Auto) Eos # (Auto) Baso # (Auto) Immature Gran # (Auto) Sodium 139 Potassium 3.7 Chloride 108 H Carbon Dioxide 28 Anion Gap 3 BUN 16 Creatinine 1.34 Est Cr Clr Drug Dosing 63.9 Est GFR ( Amer) 59.2 Est GFR (Non-Af Amer) 51.1 BUN/Creatinine Ratio 11.9 Glucose 90 Calcium 8.5 L Phosphorus 3.2 Magnesium 2.0 Total Bilirubin AST ALT Alkaline Phosphatase Total Protein Albumin Globulin Albumin/Globulin Ratio Lipase Urine Color Urine Appearance Urine pH Ur Specific Primrose Urine Protein Urine Glucose (UA) Urine Ketones Urine Blood Urine Nitrite Urine Bilirubin Urine Urobilinogen Ur Leukocyte Esterase Urine RBC Urine WBC Ur Epithelial Cells Urine Bacteria 04/12/23 04/12/23 05:29 05:29 WBC 6.57 RBC 2.96 L Hgb 8.5 L Hct 26.2 L MCV 88.5 MCH 28.7 MCHC 32.4 RDW Std Deviation 50.4 H RDW Coeff of Robert 15.5 H Plt Count 242 MPV 9.4 Immature Gran % (Auto) Neut % (Auto) Lymph % (Auto) [place] % (Auto) Eos % (Auto) Baso % (Auto) Neut # (Auto) Lymph # (Auto) [place] # (Auto) Eos # (Auto) Baso # (Auto) Immature Gran # (Auto) Sodium 141 Potassium 3.8 Chloride 108 H Carbon Dioxide 28 Anion Gap 5 BUN 14 Creatinine 1.38 Est Cr Clr Drug Dosing 62.0 Est GFR ( Amer) 57.2 Est GFR (Non-Af Amer) 49.3 BUN/Creatinine Ratio 10.1 Glucose 91 Calcium 8.6 Phosphorus 3.6 Magnesium 1.8 Total Bilirubin AST ALT Alkaline Phosphatase Total Protein Albumin Globulin Albumin/Globulin Ratio Lipase Urine Color Urine Appearance Urine pH Ur Specific Primrose Urine Protein Urine Glucose (UA) Urine Ketones Urine Blood Urine Nitrite Urine Bilirubin Urine Urobilinogen Ur Leukocyte Esterase Urine RBC Urine WBC Ur Epithelial Cells Urine Bacteria Abdomen/Pelvis CT 04/09/23 10:57 CT OF THE ABDOMEN AND PELVIS WITHOUT CONTRAST CLINICAL HISTORY: Gross hematuria. COMPARISON STUDY: CT of the abdomen and pelvis December 12, 2022 and renal ultrasound December 22, 2022. TECHNIQUE: Axial images of the abdomen and pelvis were obtained without IV contrast. Images were reviewed in the axial, sagittal, and coronal planes. Aut omated exposure control was utilized for the study. A dose lowering technique was utilized adhering to the principles of ALARA. FINDINGS: Lung bases are unremarkable. No pneumatosis, free air or portal venous gas is present. Unenhanced images of the liver, spleen, adrenal glands and pancreas are unremarkable. There is a 2 mm right renal calculus. No ureteral calculi are present. There is no hydronephrosis. No upper tract urothelial lesions are identified on unenhanced exam. Tatum balloon within the bladder is noted. Hyperdense material within the bladder represents a small amount of hem orrhage. Bladder wall thickening with adjacent stranding is unchanged. The appearance of the bladder is similar to CT of December 12, 2022. Bladder diverticula are present. There is no lymphadenopathy. There is no evidence for a bowel obstruction. IVC filter is in place. Fiducial markers within the prostate are incidentally noted. 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 IMPRESSION: 1. 2 mm right renal calculi. No ureteral calculi or hydronephrosis. 2. No change in appearance of the bladder since CT of December 12, 2022. Tatum balloon and a small amount of clot within the bladder with persistent bladder wall thickening and adjacent stranding. The findings suggest cystitis. ACT 112: Negative or not required by law. Electronically signed by: Boris Keys M.D. 04/09/2023 11:53 AM 04/09/23 10:57 CT abd pelvis wo con Routine Hospital Course (1) Hematuria: (2) Radiation cystitis: Plan 77 M with H prostate cancer s/p TURP, radiation, CKD 3, and COPD, who presents from wound care clinic with gross hematuria. Irradiation cystitis with hematuria. 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 Gross hematuria that was followed by days of urinary retention. Tatum catheter placed on admission, drained clots with irrigation as needed. Urology evaluated patient during admission. Patient was discharge with Tatum catheter, nursing staff oriented patient and about correct way of irrigation. Home health nurse was coordinated upon discharge. Patient have an appointment schedule with Urology for further management of catheter. Patient may continue Hyperbaric Oxygen therapy as schedule. Anemia -Acute on Chronic, 2/2 chronic blood loss due to the aforementioned cancer of the prostate. -Hemoglobin remains stable (8.5) -Continue iron sulfate tablets every other day (home medication) COPD -Chronic. Well-controlled on Trelegy, Singulair, as needed albuterol inhalers -Continue home regimen Mild cognitive impairment -No record of this in patient's chart, or in scanned documents from his PCP at [facility]. -Patient himself states he was previously on Prevagen but was switched to memantine due to vivid dreams. * Continue home donepezil, memantine. [place] Disease -Vitals stable. -continue home dose hydrocortisone 20mgs am, 10mgs pm. Total Time Total Time Spent Total Time Spent (In Minutes): <30 Discharge Plan Discharge Items Patient Disposition: Home - Home Health Services Reason For Visit: GROSS HEMATURIA Discharge Diagnosis: Gross hematuria related to Radiation Cystitis Activity: Resume your previous activity Non-emergency contact: Primary Care Provider and Urologist Call non-emergency contact if: you have any medication questions, your symptoms worsen and your pain is not controlled Follow-up/Referrals: Heath Jackson DO [Physician] - (for tatum removal later this week) Deondre Hill MD [Primary Care Provider] - (PLEASE CALL YOUR PRIMARY CARE PROVIDER TO SCHEDULE A HOSPITAL DISCHARGE FOLLOW-UP WITHIN 7-10 DAYS) Diet: Regular Addtl Attending Provider Instructions: You were here admitted do to gross hematuria (blood in the urine) and related pain. It seem that the pain was occasioned by blood clots that caused acute urinary retention. Your symptoms improved after Tatum catheter was placed and we irrigate the blood clot that was obstructing. Your hemoglobin was stable at 8.5 during your admission. *You will need to follow with Urology outpatient tomorrow as schedule * Continue your hyperbaric oxygen therapy as schedule * You will be discharge with a Tatum catheter. Case management will be coordinating Home health Nurse, who will show/teach you and your how the catheter should be flush to avoid future blood clots. Urology will likely remove it on the appointment *If symptoms return, your safety net will be: 1. can try to flush the catheter (after educated by Home health nurse) 2. Call the Home Health nurse 3. Call the Urology office for prompt appointment 4. Go to Emergency Department if symptoms worsen *Follow up with your PCP within a week with a CBC (blood work), to follow up your Hemoglobin. No change in your current medication list was made during your admission Pending Studies at Discharge: No Stand-Alone Forms: My [facility] GBS, Smoking Cessation Medications and DC Order Prescriptions: Continued oxymetazoline [Afrin (oxymetazoline)] 0.05 % spray,non-aerosol 2 spray intranasal Q12H PRN (Reason: Nasal Congestion) Rx Instructions: prior to hbo treatment for nasal congestion epinephrine 0.3 mg/0.3 mL auto-injector 0.3 mg IM Q4H PRN (Reason: anaphylaxis) memantine 10 mg tablet 10 mg PO BID hydrocortisone 5 mg tablet See Rx Instructions .ROUTE .COMPLEX 90 Days Qty: 450 0RF Rx Instructions: 20 mg 09:30 after breakfast, 10 mg at dinner cholecalciferol (vitamin D3) 125 mcg (5,000 unit) capsule 125 mcg PO QPM donepezil 10 mg tablet 10 mg PO QPM multivitamin with minerals Capsule 1 cap PO DAILY albuterol sulfate 90 mcg/actuation HFA aerosol inhaler 2 puff inhalation Q6H PRN (Reason: shortness of breath or wheezing) Qty: 8.5 2RF montelukast 10 mg tablet 10 mg PO DAILY fluticasone propionate 50 mcg/actuation spray,suspension 2 spray INTRANASAL DAILY PRN (Reason: allergies) Trelegy Ellipta 200-62.5-25 mcg blister with device 1 inh INHALATION QPM acetaminophen [Tylenol 8 Hour] 650 mg tablet extended release 650 mg PO Q8H PRN (Reason: pain (scale score 1-3)) Qty: 10 0RF vitamin E 268 mg (400 unit) Capsule 268 mg PO DAILY ondansetron 4 mg tablet,disintegrating 4 mg PO Q6H PRN (Reason: nausea and vomiting) Qty: 14 0RF ascorbic acid (vitamin C) [Vitamin C] 1,000 mg Tablet 1,000 mg PO QAM ferrous sulfate 325 mg (65 mg iron) tablet,delayed release (DR/EC) 325 mg PO .EVERY OTHER DAY sennosides-docusate sodium [Senokot-S] 8.6-50 mg tablet 1 - 2 tab-cap PO BID PRN (Reason: constipation) Qty: 60 2RF Discharge Orders: Discharge Order (Routine); Ordered 04/12/23 Ordered By: Noe Nina Admission Data Admit Date/Time: 04/09/23 02:57 Attending Provider: Brian Shanks Admit Provider: Gordo Jaramillo Primary Care Provider: Deondre Hill Other Providers: Hanna Villanueva ; Heath Jackson ; [facility] Other Interventions: Discharge Summary Assessment (RN) Last Done: 04/12/23 14:17 Supervising Physician Co-Signing Physician Notes I personally examined the patient and verified all michel points of history and exam, discussed case, and agree with decision making with Dr Evens Nina Feeling okay, feels up to going home. Discussed hematuria, potential need for intermittent irrigation, low probability very well, means by which to have care if it is needed, and outpatient follow-up. Then talk to his on the phone and answered her questions as well. Vitals noted, in general he is awake and alert pleasant no distress. HEENT normocephalic atraumatic mucous membranes moist. Breathing unlabored no accessory muscle use good effort. Skin shows no rashes no pallor or icterus. Tatum draining dark red urine but no clots. Radiation cystitis, hematuriastable for home, Tatum, outpatient urology follow-up, otherwise as above Resident Activity Tracking Resident Involvement: Resident Care Provided Care Provided: Adult Hospital Medicine
--- NOTE | 2023-04-12 17:30 | Billing Data ---
Date of Service April 12, 2023 Coding Level of Care Code 35516 IN/OBS DISCH 30 MIN/LESS
== END 2023-04-12 17:15 | disposition home health service (06) | DRG 699 ==
LOC: ED 00:06 → SUATTDRO 02:57 → EDINP 02:57 → INTOOBSV 02:57 → 2N 05:18
DX: R33.9 Retention of urine, unspecified; D62 Acute posthemorrhagic anemia; Y84.2 Radiological procedure and radiotherapy as the cause of abnormal reaction of the patient, or of later complication, without mention of misadventure at the time of the procedure; Z79.899 Other long term (current) drug therapy; Z79.52 Long term (current) use of systemic steroids; E27.1 Primary adrenocortical insufficiency; N17.9 Acute kidney failure, unspecified; G31.84 Mild cognitive impairment of uncertain or unknown etiology; N30.41 Irradiation cystitis with hematuria; J44.9 Chronic obstructive pulmonary disease, unspecified; Z88.1 Allergy status to other antibiotic agents; N18.30 Chronic kidney disease, stage 3 unspecified; Z79.51 Long term (current) use of inhaled steroids; Z91.041 Radiographic dye allergy status

== ENCOUNTER 2023-09-06 08:04 | Observation (INO) ==
--- NOTE | 2023-09-06 08:32 | Emergency Department Note ---
Impression & Plan Elevated troponin ADMIT ED Provider Note HPI: History obtained from patient. The patient is a 78-year-old male with history of memory impairment, history of DVT status post IVC filter in December 2022, history of bladder cancer, presents emergency department with his at the bedside over concern for dyspnea. Patient states that he has had some increasing shortness of breath over about the past 2 weeks. Patient also states that several days ago he fell off the couch and has some pain in his neck after his fall. Patient denies any recent fevers or cough. On arrival here to the ED the patient is hemodynamically stable, he is saturating well on room air on arrival. Patient denies any chest pain. ROS: - Per HPI Differential Diagnosis: Acute CHF exacerbation with dyspnea, viral upper respiratory infection, acute bacterial pneumonia, cervical spine fracture, musculoskeletal spasm of the neck status post fall, generalized debility with physical deconditioning and progressively worsening ambulatory dysfunction, amongst other potential pathologies. *Outpatient medications and allergy history reviewed. PE: General: Alert, frail-appearing, no acute distress HEENT: Normocephalic, trachea midline Eyes: Extraocular eye movement is intact, no scleral erythema Pulmonary: Clear to auscultation bilaterally, no wheezing Cardio: Regular rate and rhythm GI: Abdomen is soft to palpation : No suprapubic tenderness MSK: No evidence of trauma or malformation of the extremities, no edema Skin: No evidence of rash Neuro: Alert, no focal deficits Psychiatric: Cooperative INDEPENDENT INTERPRETATIONS: patch setter: (As interpreted by myself): - An order was placed for continuous cardiac monitoring - Patient was noted to be in sinus rhythm with a rate of 90 EKG: (As interpreted by myself): Rate: 90 Rhythm: Normal sinus rhythm Intervals: Within normal limits ST changes: No ST elevation Time: 821 Chest x-ray: (As interpreted by myself): No acute process Medical Decision Making: IV was established and lab work obtained, patient was placed on psychiatric mental health nurse. Lab work shows no leukocytosis, hemoglobin is normal, platelet count is normal, CMP does not show any critical findings, creatinine is near baseline at 1.46, BUN slightly elevated at 27. There is a mild elevation of AST and ALT, patient does not have any abdominal tenderness on my exam, no right upper quadrant tenderness, bilirubin is normal, low suspicion for acute biliary pathology. BNP is within normal limits, chest x-ray does not show any evidence of infiltrate or obvious fluid overload per my interpretation. Viral panel testing was obtained and is negative. Patient is status post IVC filter, low suspicion for PE. Patient denies any chest pain. Low suspicion for ACS. High-sensitivity troponin is mildly elevated at 39.8, EKG per my interpretation does not show any acute ischemic changes. CT imaging of the head does not show any evidence of an acute intracranial process, CT imaging of the cervical spine does not show any evidence of fracture. On my reassessment the patient is resting comfortably in bed, he remains with heart rate in normal limits and saturating well on room air. Patient's states that she does not feel comfortable taking him home at this point as he has had physical deconditioning to the point where he is having problems ambulating and she does not feel that she can take care of him at home anymore. She states that this does seem to correlate with immunotherapy that he started several months ago for his history of bladder cancer. Given the patient's elevated troponin and symptoms of dyspnea and ambulatory dysfunction, I did discuss the case with the on-call midlevel provider for [facility], Maura Carpenter, and the patient was placed for admission in stable condition. Consultants/Discussions held with other healthcare providers: -Maura Carpenter PA-C, service of the hospitalist Dr. Christian Disposition discussion held by myself with: -Patient and at bedside Diagnosis: 1. Dyspnea, acute, nonspecific 2. Generalized weakness 3. Ambulatory dysfunction, acute on chronic 4. Elevated high-sensitivity troponin level Disposition: Admission Tom Brown DO Emergency Medicine Past Med/Surg History Medical History (Updated 09/06/23 @ 10:29 by Tom Brown DO) History of recent blood transfusion Bladder cancer Weakness Mild cognitive impairment, so stated Anemia (06/25/23)to start receiving iron infusions Radiation cystitis Kidney stones x1 episode. no surgery needed. Hx of prostatic malignancy ~ 2013- s/p Lupron and XRT Bradley's disease follows with Endocrinology [facility] on hydrocortisone Chronic steroid use Sleep apnea Cpap Cardiac arrest hx r/t IV Contrast Dye "many years ago" History of pulmonary embolism hx "many years ago" unknown etiology History of DVT (deep vein thrombosis) hx "many years ago" unknown etiology acute on chronic DVT during 12/2022 [facility] admission- Coumadin d/c'ed due to anemia and hematuria; IVC filter placed 12/28/22 Stage 3 chronic kidney disease Ascending aorta dilation Mild- 4.4cm per 11/2022 ECHO Aortic stenosis Mild per 12/2022 ECHO -follows annually with cardiology Adrenal insufficiency Allergic rhinitis Asthma (10/03/11) well controlled. Benign prostatic hyperplasia Contrast media allergy Venous insufficiency (chronic) (peripheral) Hiatal hernia COPD (chronic obstructive pulmonary disease) well controlled. uses Breo daily with exercise Surgical History S/P IVC filter S/P cataract extraction History of right cataract extraction History of colonoscopy H/O sinus surgery History of appendectomy S/P TURP (status post transurethral resection of prostate) Status post cystoscopy (11/07/13) Family History Father Prostate cancer Brother Prostate cancer Mother Thyroid cancer Cancer Other No family history of adverse response to anesthesia Social History Smoking Status: Never smoker Tobacco Type: Cigarettes Second Hand Exposure: No; Do You Dip or Chew Tobacco: No; Hx Alcohol Use: No Hx Substance Use: No Preferred Language: Divehi Communication Ability: Effective Visual Impairment: Limited Hearing Ability: Normal Battery Recharger Required: No Beliefs That Will Affect Care: None marital status: Current Living Situation: Spouse Current Living Situation Comment: at home with current occupational status: retired How many Children do You have: 0 Feels Safe at Home: Yes Diet: regular during the past year weight has: decreased > 10 lbs Seatbelt Use: always Do you think of yourself as: straight/heterosexual Gender Identity: Male Assistive Devices: Glasses and Walker Allergies Allergies Allergy/AdvReac Type Severity Reaction Status Date / Time Iodinated Contrast Media Allergy Severe LOVERSOL---CARDIAC Verified 06/25/23 09:[address] CONTRAST clindamycin Allergy Unknown Unknown Verified 06/25/23 09:53 chocolate flavor AdvReac Severe Cannot Verified 06/25/23 09:53 take, interacts w/ medications. cranberry AdvReac Severe Cannot Verified 06/25/23 09:53 take, interacts w/ medications. Home Meds Home Medications Medication Instructions Recorded Confirmed cholecalciferol (vitamin D3) 125 125 mcg PO QPM 06/20/20 06/29/23 mcg (5,000 unit) capsule donepezil 10 mg tablet 10 mg PO QAM 04/13/22 06/29/23 multivitamin with minerals 1 cap PO DAILY 04/13/22 06/29/23 ascorbic acid (vitamin C) 1,000 mg 1,000 mg PO QAM 08/27/22 06/29/23 tablet (Vitamin C) epinephrine 0.3 mg/0.3 mL 0.3 mg IM DIRECTED PRN 11/30/22 06/29/23 injection, auto-injector anaphylaxis memantine 10 mg tablet 10 mg PO BID 11/30/22 06/29/23 montelukast 10 mg tablet 10 mg PO DAILY PRN Allergy Symptoms 11/30/22 06/29/23 fluticasone fur. 200 mcg-umeclid 1 inh inhalation QPM 12/12/22 06/29/23 62.5 mcg-vilant 25 mcg inhalat.powder (Trelegy Ellipta) fluticasone propionate 50 2 spray intranasal DAILY PRN 12/12/22 06/29/23 mcg/actuation nasal allergies spray,suspension vitamin E 268 mg (400 unit) capsule 268 mg PO DAILY 02/18/23 06/29/23 oxymetazoline 0.05 % nasal spray 2 spray intranasal Q12H PRN Nasal 02/24/23 06/29/23 (Afrin (oxymetazoline)) Congestion ferrous sulfate 325 mg (65 mg 325 mg PO .EVERY OTHER DAY 04/07/23 06/29/23 iron) tablet,delayed release Previous Rx's Medication Instructions Recorded albuterol sulfate 90 mcg/actuation 2 puff inhalation Q6H PRN 12/03/22 aerosol inhaler shortness of breath or wheezing #8.5 grams acetaminophen 650 mg 650 mg PO Q8H PRN pain (scale 01/07/23 tablet,extended release (Tylenol 8 score 1-3) #10 tabs Hour) ondansetron 4 mg disintegrating 4 mg PO Q6H PRN nausea and 02/18/23 tablet vomiting #14 tabs hydrocortisone 5 mg tablet See Rx Instructions .Route 03/05/23 .COMPLEX 90 days #450 tabs sennosides 8.6 mg-docusate sodium 1 - 2 tab-cap (1 - 2 x 8.6-50 mg) 04/07/23 50 mg tablet (Senokot-S) PO BID PRN constipation #60 tabs ciprofloxacin HCl 500 mg tablet 500 mg PO BID #6 tabs 06/29/23 (Cipro) hydrocodone 5 mg-acetaminophen 325 1 tab PO Q6H PRN pain #10 tabs 06/29/23 mg tablet Results & Data (ED) Vital Signs Vital Signs - 24 hr 09/06/23 08:12 09/06/23 08:24 09/06/23 08:25 Temperature 36.6 C Temperature Source Temporal Artery Scan Pulse Rate 90 91 H Respiratory Rate 20 Respiratory Effort / Characteristics Non-Labored Respiratory Depth Normal Respiratory Pattern Regular Blood Pressure 142/88 H Blood Pressure Mean 106 Pulse Oximetry 97 96 Oxygen Delivery Method Room Air Room Air Sepsis Recent Fever Within 48 Hours No Sepsis New/Unexplained Change in Mental Status N/A Sepsis Action Taken by Nursing No Action Required Laboratory Data 09/06/23 08:27 09/06/23 08:27 Lab Results 09/06/23 09/06/23 Range/Units 08:25 08:27 WBC 7.64 (4.8-10.8) K/ul RBC 5.02 (4.70-6.10) M/uL Hgb 14.0 (14.0-18.0) g/dl Hct 45.0 (42.0-52.0) % MCV 89.6 (80.0-100.0) fL MCH 27.9 (25.0-34.0) pg MCHC 31.1 L (32.0-36.0) g/dL RDW Std Deviation 56.2 H (36.4-46.3) fL RDW Coeff of Robert 17.2 H (11.5-14.5) % Plt Count 256 (130-400) K/uL MPV 8.8 L (9.4-12.4) fL Immature Gran % (Auto) 0.4 % Neut % (Auto) 69.7 % Lymph % (Auto) 19.1 % Cecil % (Auto) 8.6 % Eos % (Auto) 1.7 % Baso % (Auto) 0.5 % Neut # (Auto) 5.32 (1.40-6.50) K/uL Lymph # (Auto) 1.46 (1.20-3.40) K/uL Cecil # (Auto) 0.66 H (0.11-0.59) K/uL Eos # (Auto) 0.13 (0.00-0.50) K/uL Baso # (Auto) 0.04 (0.00-0.20) K/uL Immature Gran # (Auto) 0.03 (0.01-0.20) K/uL PT 11.1 (9.0-12.0) Seconds INR 1.0 (0.9-1.1) Sodium 144 (136-145) mmol/L Potassium 4.0 (3.5-5.1) mmol/L Chloride 106 (98-107) mmol/L Carbon Dioxide 30 (21-32) mmol/L Anion Gap 8 (3-11) BUN 27 H (6-23) mg/dl Creatinine 1.46 H (0.6-1.4) mg/dl Est Cr Clr Drug Dosing 50.6 ml/min Est GFR ( Amer) 53.0 ml/min Est GFR (Non-Af Amer) 45.7 ml/min BUN/Creatinine Ratio 18.5 (10-20) Glucose 106 H (70-99(Fasting)) mg/dl Calcium 9.7 (8.6-10.3) mg/dl Total Bilirubin 0.7 (0.2-1.0) mg/dl AST 106 H (13-39) U/L ALT 119 H (7-52) U/L Alkaline Phosphatase 83 (34-104) U/L Troponin I High Sens 39.8 H (0-20) pg/ml B-Natriuretic Peptide 14 (0-100) pg/ml Total Protein 7.4 (6.0-8.3) gm/dl Albumin 4.3 (3.4-5.0) gm/dl Globulin 3.1 (2.5-4.0) gm/dl Albumin/Globulin Ratio 1.4 (0.9-2) Adenovirus (PCR) Not Detected (NotDetected) B. pertussis DNA (PCR) Not Detected (NotDetected) B.parapertussis DNA PCR Not Detected (NotDetected) C. pneumoniae DNA (PCR) Not Detected (NotDetected) Coronavirus OC43 (PCR) Not Detected (NotDetected) Coronavirus HKU1 (PCR) Not Detected (NotDetected) Coronavirus 229E (PCR) Not Detected (NotDetected) SARS-CoV-2 (PCR) Not Detected (NotDetected) Coronavirus NL63 (PCR) Not Detected (NotDetected) Human Metapneumovir PCR Not Detected (NotDetected) Influenza Type A (PCR) Not Detected (NotDetected) Influenza Type B (PCR) Not Detected (NotDetected) M. pneumoniae (PCR) Not Detected (NotDetected) Parainfluenza 1 (PCR) Not Detected (NotDetected) Parainfluenza 2 (PCR) Not Detected (NotDetected) Parainfluenza 3 (PCR) Not Detected (NotDetected) Parainfluenza 4 (PCR) Not Detected (NotDetected) RSV (PCR) Not Detected (NotDetected) Entero/Rhino (PCR) Not Detected (NotDetected) Imaging Data Radiologist's Impression: Chest X-Ray 09/06/23 08:19 XR chest 1V portable CLINICAL HISTORY: Dyspnea. COMPARISON STUDY: Chest radiograph April 13, 2023. Chest CT August 19, 2023. FINDINGS: There is no pneumothorax or pleural effusion. Mild left basilar opacity favors atelectasis or scarring. There is no evidence for pulmonary edema. No consolidation to suggest pneumonia. Cardiomediastinal silhouette is stable. IMPRESSION: No acute cardiopulmonary findings. No significant change in appearance of the chest. ACT 112: Negative or not required by law. Electronically signed by: Boris Keys M.D. 09/06/2023 8:[address] 09/06/23 08:23 CT cervical spine wo con CT DOSE: 1400.4 mGy.cm CLINICAL HISTORY: 78 years-old Male with fall. Acute neck pain status post fall COMPARISON: None TECHNIQUE: Multiple axial CT images of the cervical spine were obtained without contrast. A dose lowering technique was utilized adhering to the principles of ALARA. FINDINGS: Demineralized appearance to the bones. Moderate multilevel and vertebral disc space narrowing, spondylitic spurring and facet arthrosis. T2 vertebral body hemangioma. Moderate mucoperiosteal thickening of the sphenoid sinuses. Mild dextroscoliosis. No acute cervical spine fracture or subluxation identified. The cervical soft tissues appear unremarkable. The visualized lung apices appear clear. IMPRESSION: No acute cervical spine fracture or subluxation identified. ACT 112: Negative or not required by law. The above report was generated using voice recognition software. It may contain grammatical, syntax or spelling errors. Electronically signed by: Chaim Curiel M.D. 09/06/2023 8:[address] 09/06/23 08:23 CT OF THE HEAD WITHOUT CONTRAST CLINICAL HISTORY: Fall. COMPARISON STUDY: MRI of the brain February 02, 2020. Head CT March 03, 2023. TECHNIQUE: Helical axial images of the head were obtained without IV contrast. Automated exposure control was utilized for the study. A dose lowering technique was utilized adhering to the principles of ALARA. FINDINGS: No acute intracranial hemorrhage, midline shift or mass effect is present. The ventricular system is stable. Hypodensities within the bilateral basal ganglia remain unchanged. The appearance of the brain is unchanged. The basal cisterns are patent. No extra-axial collections are present. There are no findings to suggest acute dural sinus thrombosis or acute territorial infarct. There is no acute calvarial fracture. Secretions with air-fluid level within the left maxillary sinus are present. There is a mucous retention cyst within the right maxillary sinus. IMPRESSION: 1. No acute intracranial findings. 2. No calvarial fracture. ACT 112: Negative or not required by law. Electronically signed by: Boris Keys M.D. 09/06/2023 8:55 AM Discharge Plan Visit Data Chief Complaint: Shortness of Breath/Dyspnea Stated Complaint: SOB ED Provider: Tom Brown Discharge Problem: Elevated troponin Forms Stand Alone Forms: [facility] Prescriptions Prescriptions: No Action oxymetazoline [Afrin (oxymetazoline)] 0.05 % spray,non-aerosol 2 spray intranasal Q12H PRN (Reason: Nasal Congestion) Rx Instructions: prior to hbo treatment for nasal congestion epinephrine 0.3 mg/0.3 mL auto-injector 0.3 mg IM DIRECTED PRN (Reason: anaphylaxis) memantine 10 mg tablet 10 mg PO BID hydrocortisone 5 mg tablet See Rx Instructions .ROUTE .COMPLEX 90 Days Qty: 450 0RF Rx Instructions: 20 mg 09:30 after breakfast, 10 mg at dinner cholecalciferol (vitamin D3) 125 mcg (5,000 unit) capsule 125 mcg PO QPM donepezil 10 mg tablet 10 mg PO QAM multivitamin with minerals Capsule 1 cap PO DAILY albuterol sulfate 90 mcg/actuation HFA aerosol inhaler 2 puff inhalation Q6H PRN (Reason: shortness of breath or wheezing) Qty: 8.5 2RF montelukast 10 mg tablet 10 mg PO DAILY PRN (Reason: Allergy Symptoms) fluticasone propionate 50 mcg/actuation spray,suspension 2 spray INTRANASAL DAILY PRN (Reason: allergies) Trelegy Ellipta 200-62.5-25 mcg blister with device 1 inh INHALATION QPM acetaminophen [Tylenol 8 Hour] 650 mg tablet extended release 650 mg PO Q8H PRN (Reason: pain (scale score 1-3)) Qty: 10 0RF vitamin E 268 mg (400 unit) Capsule 268 mg PO DAILY ondansetron 4 mg tablet,disintegrating 4 mg PO Q6H PRN (Reason: nausea and vomiting) Qty: 14 0RF ascorbic acid (vitamin C) [Vitamin C] 1,000 mg Tablet 1,000 mg PO QAM ferrous sulfate 325 mg (65 mg iron) tablet,delayed release (DR/EC) 325 mg PO .EVERY OTHER DAY sennosides-docusate sodium [Senokot-S] 8.6-50 mg tablet 1 - 2 tab-cap PO BID PRN (Reason: constipation) Qty: 60 2RF hydrocodone-acetaminophen 5-325 mg tablet 1 tab PO Q6H PRN (Reason: pain) Qty: 10 0RF ciprofloxacin HCl [Cipro] 500 mg tablet 500 mg PO BID Qty: 6 0RF Referrals Referrals: Deondre Hill MD [Primary Care Provider] -
--- OUTSIDE RECORDS SUMMARY | 2023-09-06 08:33 | External Medical Summary | Summary of Care ---
Author Name Unknown Organization [facility] Address [address] [place] [address] Phone [phone] Care Team Providers Care Hogshead Packer Name Role Phone Chuy Batista MD Primary Care Provider +1- [phone] Reason for Visit * Reason Onset Date Comments Appointment 08/30/2023 ANDRZEJ (obstructive sleep apnea) [G47.33] Encounter Details Date Type Department Care Team (Late st Contact Info) Description 08/30/2023 Telephone [facility] [address] [place] [address] Chuy Batista MD [address] [place] [address] Appointment (ANDRZEJ (obstructive sleep apnea)... Allergies Active Allergy Reactions Criticality Noted Date Comments Chocolate Diarrhea 05/14/2023 Clindamycin Hcl 09/24/2005 rash Iodinated Contrast Media 10/01/2015 Ioversol Other (Please comment) High 08/10/[address] IV DYE documented as of this encounter (statuses as of 08/30/2023) Medications Medication Sig Dispensed Refills Start Date End Date Status Syringe/Needle, Disp, 25G X 1-1/2" 3 ML MISC To use with injection of hydrocortisone if needed 2 Each 5 08/31/2015 Active Hydrocortisone 5 MG Oral Tablet (Cortef) 4 Tablets in the morning and 4 Tablets before bedtime. 3 tablet in the AM, one tablet at noon and one tablet in the PM.. 0 07/22/2021 Active Fluticasone Propionate 50 MCG/ACT Nasal Suspension (Flonase) SPRAY 2 SPRAYS INTO EACH NOSTRIL IN THE MORNING 16 mL 3 10/17/2022 Active Trelegy Ellipta 200-62.5-25 MCG/ACT Aerosol Powder Breath Activated (Fluticasone-Ume clidinium-Vilant emily) Inhale 1 Puff by mouth every evening. 60 Blister Dosing Unit 11 10/26/2022 Active Memantine HCl 10 MG Oral Tablet (Namenda) Take 1 Tablet by mouth 2 times a day with morning and evening meals. 180 Tablet 3 11/05/2022 Active EpiPen 2-Pedro 0.3 MG/0.3ML Injection Solution Auto-injectorInd ications:Anaphyl axis, sequela USE DIRECTED 1 Each 0 01/27/2023 Active Montelukast Sodium 10 MG Oral Tablet (Singulair)Indic ations:Chronic allergic rhinitis Take 1 Tablet by mouth in the morning. 90 Tablet 3 01/27/2023 Active Multi Adult Gummies Oral Tablet Chewable Take by mouth. 0 Activ e Vitamin D 125 MCG (5000 UT) Oral Capsule Take by mouth. 0 Active Vitamin E 100 UNIT Oral Capsule Take 1 Capsule by mouth in the morning. 0 Active Sennosides-Docus ate Sodium 8.6-50 MG Oral Tablet Take 1 Tablet by mouth as needed. 0 04/07/2023 Active Donepezil HCl 10 MG Oral Tablet (Aricept) TAKE 1 TABLET BY MOUTH EVERY MORNING WITH LARGEST MEAL OF THE DAY. 90 Tablet 0 08/20/2023 Active Iron 325 (65 Fe) MG Oral Tablet Take by mouth. 0 Active Mirtazapine 15 MG Oral Tablet (Remeron)Indicat ions:Unintention al weight loss Take 1 Tablet by mouth at bedtime. 30 Tablet 5 08/30/2023 Active Hospital, Clinic, or Other Facility Administered Medication Ordered Dose Route Frequency Start Date End Date Status albuterol sulfate (PROVENTIL) (2.5 MG/3ML) 0.083% inhalation solution 2.5 mgIndications:Moderate persistent asthma without complication,MORA (dyspnea on exertion) 2.5 mg NEBULIZER Q4H PRN 2018 Active documented as of this encounter (statuses as of 08/30/2023) Active Problems Problem Noted Date Diagnosed Date Urothelial carcinoma of bladder 08/30/2023 Unspecified dementia, unspec ified severity, without behavioral disturbance, psychotic disturbance, mood disturbance, and anxiety 09/03/2022 Personal history of radiation therapy 01/02/2022 Overview: treatment for prostate cancer Chronic kidney disease, stage 3b 01/28/2021 Overview: Per CKD protocol Benign hypertension with stage 3b chronic kidney disease 12/24/2020 Overview: Per CKD protocol Mild cognitive impairment 08/29/2020 Aortic valve stenosis 08/29/2020 Hx of nonmelanoma skin cancer 03/27/2019 Overview: basal cell carcinoma (L lower galaviz 03/02) ANDRZEJ (obstructive sleep apnea) 08/19/2018 Prostate cancer 06/29/2017 Moderate persistent asthma without complication 04/13/2017 Chronic anticoagulation 04/13/2017 Adrenal insufficiency 04/23/2015 Chronic steroid use 02/21/2015 History of DVT in adulthood 08/20/2014 History of pulmonary embolism 04/16/2014 Deviated nasal septum 02/03/2006 ANGIOEDEMA 02/25/2005 documented as of this encounter (statuses as of 08/30/2023) Resolved Problems Problem Noted Date Diagnosed Date Resolved Date Unspecified dementia, unspec ified severity, without behavioral disturbance, psychotic disturbance, mood disturbance, and anxiety 09/03/2022 09/03/2022 Dementia without behavioral disturbance 02/26/2021 02/26/2021 Class 2 severe obesity with serious comorbidity and body mass index (BMI) of 36.0 to 36.9 in adult 08/29/2020 09/03/2022 Chronic kidney disease, stage 3 unspecified 08/28/2020 09/26/2020 Other atherosclerosis of silke anthony arteries of extremities, bilateral legs 05/08/2019 09/01/2019 Preoperative general physical examination 03/20/2019 04/02/2019 Benign hypertension with chr onic kidney disease, stage III 02/27/2019 12/26/2020 Overview: Per CKD protocol Allergic rhinitis due to pollen 01/16/2019 05/08/2019 MORA (dyspnea on exertion) 08/19/2018 Nonallergic rhinitis 12/28/2017 019 Screening for thyroid disorder 11/30/2016 12/28/2017 Kidney disease, chronic, sta ge III (GFR 30-59 ml/min) 10/21/2015 03/30/2019 Overview: Per CKD protocol #1 Adrenal cortex insufficiency 06/17/2015 04/13/2017 HTN, goal below 150/90 10/16/201409/01 DVT (deep venous thrombosis) 08/20/2014 12/28/2017 Chronic sinusitis 02/03/2006 04/13/2017 Polyp of nasal sinus 02/03/2006 017 ADVANCE DIRECTIVE INFORMATION 09/03/2005 04/13/2017 Overview: No, Advance Directive brochure given to patient. RHINITIS, NONALLERGIC 05/27/20052017 HTN, goal to be determined 02/25/2005 0 10/16/2014 URTICARIA UNSPECIFIED 02/25/20052016 Asthma with severity to be determined 02/25/2005 04/13/2017 Overview: ICD-10 update of inactive term Chronic sinusitis 04/13/2017 Allergic rhinitis 04/13/2017 Chronic rhinitis 12/28/2017 Deviated nasal septum 2016 documented as of this encounter (statuses as of 08/30/2023) Immunizations Name Administration Dates Next Due COVID-19 mRNA, LNP-s, No Pre serve, 2-Dose Series ([employer]) 05/30/2021,10/29/2020,10/08/2020 COVID-19, LNP-s, No Preserve , Prosper-sucrose, Ages 12+ (Pfizer) 02/11/2022 Pneumococcal Conjugate Vacc, 13 Valent (Prevnar) 09/24/2020 Pneumococcal Polysaccharide PPV23 (Pneumovax) 07/06/2012 Season Influenza, Quad, PF, Adjuvanted, 65+ Yrs, IM (FLUAD) 06/13/2020 Seasonal Influenza, PF, 6 M & above, IM , (FluLaval or Fluzone) 07/10/2018,06/29/2017 Seasonal Influenza, Quadriva lent Hd (Fluzone Hd) 05/29/2022,05/27/2021 Seasonal Influenza, Quadriva lent, No Preserve, IM 10/01/2015 Seasonal Influenza, Trivalen t, Adjuvanted, 65+ yrs 06/15/2019 Seasonal Influenza, Trivalen t, High Dose, No Preserve, IM 07/16/2018 documented as of this encounter Social History Tobacco Use Types Packs/Day Years Used Date Smoking Tobacco: Never Smokeless Tobacco: Never Comments:passive smoke from at home Alcohol Use Standard Drinks/Week Comments No 0 (1 standard drink = 0.6 oz pur e alcohol) 1 beer per year PHQ-2 Answer Date Recorded PHQ-2 Score 0 04/29/2020 Hunger Vital Sign Answer Date Recorded Worried About Running Out of Food in the Last Ye ar Never true 09/01/2019 Ran Out of Food in the Last Year Never true 09/01/2019 Sex and Gender Information Value Date Recorded Sex Assigned at Male 01/31/2019 8:25 AM EDT Gender Identity Male 01/31/2019 8:25 AM EDT Sexual Orientation Not on file Job Start Date Occupation Industry Not on file Not on file Not on file documented as of this encounter Miscellaneous Notes * Telephone Encounter - Vitaliy Almendarez OSA - 08/30/2023 3:27 PM EST Pt has soonest appointment with [facility]. Placed on wait list. LMOM informing pt. * Telephone Encounter - Ania Neal OSA - 08/30/2023 1:33 PM EST Please call patient with sooner appt. Patient was to be seen within 10 days per referral. Dx: ANDRZEJ (obstructive sleep apnea) [G47.33] Please call patient to [facility] as we scheduled first available and the is not happy about waiting until December. 08/30/2023 documented in this encounter Plan of Treatment Upcoming Encounters Date Type Department Care Team (Late st Contact Info) Description 11/09/2023 2:30 PM EDT Office Visit Otolaryngology [facility] [address] [facility] [place] [address] Dioni Jean-Baptiste DO [address] [place] [address] 11/26/2023 2:20 PM EDT Office Visit [facility] [address] Ellie Duncan [facility] [address] [facility] [facility] [address] 11/29/2023 1:00 PM EDT Office Visit [facility] [address] [place] [address] DecemberDeondre MD [address], [place] [phone] 12/16/2023 4:30 PM EDT Office Visit [facility] [address] [facility] [place] [phone] Radha Caballero CRNP [address] [place] [address] Health Maintenance Due Date Last Done Comments Albumin/Creatinine Ratio 1963 DTaP,Tdap,and Td Vaccines (1 - Tdap) 1964 Depression Screening 04/29/2021 04/29/2020 CKD PHOS USE SMARTSET 28038 07/14/2022 07/14/2021, 0 02/22/2019 COVID-19 Vaccine ( season) 2023 02/11/2022, 02/11/2022, 05/30/2021, Additional history exists Influenza Vaccine (FLU shot) (#1) 2023 05/29/2022, 05/27/2021, 06/13/2020, Additional history exists GFR 12/10/2023 06/10/2023, 01/14, 10/26/2022, Additional history exists CKD HGB USE SMARTSET 06954 06/17/202406/17, 01/27/2023, 11/06/2022, Additional history exists Pneumococcal Vaccine: 65+ Years Completed 09/24/2020, 07/06/2012 Zoster Vaccines Completed 05/09/2023, 01/11/2023 GARDASIL-HPV IMMUNIZATION SERIES Aged Out No longer eligible based on patient's age to complete this topic Hepatitis B Aged Out No longer eligi ble based on patient's age to complete this topic MENINGOCOCCAL (MENACTRA/MENVEO) Aged Out No longer eligible based on patient's age to complete this topic documented as of this encounter Medical Devices Not on filedocumented as of this encounter Care Teams Hogshead Packer Relationship Specialty Start Date End Date Chuy Batista MD [address] [place] [address] PCP - General Family Medicine 07/11/14 documented as of this encounter
--- OUTSIDE RECORDS SUMMARY | 2023-09-06 08:33 | External Medical Summary | Summary of Care ---
Author Name Unknown Organization [facility] Address [address] [place] [address] Phone [phone] Care Team Providers Care Heel Burnisher Name Role Phone Chuy Batista MD Primary Care Provider +1- [phone] Reason for Visit * Reason Onset Date Comments Appointment 08/30/2023 ANDRZEJ (obstructive sleep apnea) [G47.33] Encounter Details Date Type Department Care Team (Late st Contact Info) Description 08/30/2023 Telephone [facility] [address] [place] [address] Chuy Batista MD [address] [place] [address] Appointment (ANDRZEJ (obstructive sleep apnea)... [...] mRNA, LNP-s, No Pre serve, 2-Dose Series ([employer]) 05/30/2021,10/29/2020,10/08/2020 COVID-19, LNP-s, No Preserve , Prosper-sucrose, [...] encounter Miscellaneous Notes * Telephone Encounter - Ania Neal OSA - 08/30/2023 1:33 PM EST Please call patient with sooner appt. Patient was to be seen within 10 days per referral. Dx: ANDRZEJ (obstructive sleep apnea) [G47.33] Please call patient to [facility] as we scheduled first available and the is not happy about waiting until December. 08/30/2023 documented in this encounter Plan of Treatment Upcoming Encounters Date Type Department Care Team (Late st Contact Info) Description 11/09/2023 2:30 PM EDT Office Visit Otolaryngology [facility] [address] [place] [address] Dioni Jean-Baptiste DO [address] [place] [address] 11/26/2023 2:20 PM EDT Office Visit Neurology [facility] [address] [place] [address] Ellie Duncan MD [address] [facility] [place], [place] [address] 11/29/2023 1:00 PM EDT Office Visit [facility] [place] [address] [place] [phone] DecemberDeondre MD [address] [place] [address] 12/16/2023 4:30 PM EDT Office [facility] [place] [phone] Radha Caballero CRNP [address] [facility] [place] [address] Health Maintenance Due Date Last Done Comments Albumin/Creatinine Ratio 1963 DTaP,Tdap,and Td Vaccines (1 - Tdap) 1964 Depression Screening 04/29/2021 04/29/2020 CKD PHOS USE SMARTSET 19492 07/14/2022 07/14/2021, 0 02/22/2019 COVID-19 Vaccine ( season) 2023 02/11/2022, 02/11/2022, 05/30/2021, Additional history exists Influenza Vaccine (FLU shot) (#1) 2023 05/29/2022, 05/27/2021, 06/13/2020, Additional history exists GFR 12/10/2023 06/10/2023, 01/14, 10/26/2022, Additional history exists CKD HGB USE SMARTSET 34873 06/17/202406/17, 01/27/2023, 11/06/2022, Additional history exists Pneumococcal [...] filedocumented as of this encounter Care Teams Heel Burnisher Relationship Specialty Start Date End Date Chuy Batista MD [address] [place] [address] PCP - General Family Medicine 07/11/14 documented as of this encounter
--- OUTSIDE RECORDS SUMMARY | 2023-09-06 08:33 | External Medical Summary | Summary of Care ---
Author Name Unknown Organization [facility] Address [address] [place] [address] Phone [phone] Care Team Providers Care Weigher And Grader Name Role Phone Chuy Batista MD Primary Care Provider +1- [phone] Reason for Visit * Reason Onset Date Comments Appointment 08/30/2023 ANDRZEJ (obstructive sleep apnea) [G47.33] Encounter Details Date Type Department Care Team (Late st Contact Info) Description 08/30/2023 Telephone [facility] [address] [place] [address] Chuy Batista MD [address] [place] [address] Appointment (ANDRZEJ (obstructive sleep apnea)... [...] mRNA, LNP-s, No Pre serve, 2-Dose Series ([employer]) 05/30/2021,10/29/2020,10/08/2020 COVID-19, LNP-s, No Preserve , Prosper-sucrose, [...] sleep apnea) [G47.33] Please call patient to [facility] as we scheduled first available and the is not happy about waiting until December. 08/30/2023 documented in this encounter Plan of Treatment Upcoming Encounters Date Type Department Care Team (Late st Contact Info) Description 11/09/2023 2:30 PM EDT Office Visit Otolaryngology [facility] [address] [place] [address] Dioni Jean-Baptiste DO [address] [place] [address] 11/26/2023 2:20 PM EDT Office Visit Neurology [facility] [address] [facility] [place] [address] Ellie Duncan MD [address] [facility] [place], [place] [address] 11/29/2023 1:00 PM EDT Office Visit [facility] [place] [address] [place] [phone] DecemberDeondre MD [address] [place] [address] 12/16/2023 4:30 PM EDT Office [facility] [place] [phone] Radha Caballero CRNP [address] [facility] [place] [address] Health Maintenance Due Date Last Done Comments Albumin/Creatinine Ratio 1963 DTaP,Tdap,and Td Vaccines (1 - Tdap) 1964 Depression Screening 04/29/2021 04/29/2020 CKD PHOS USE SMARTSET 53780 07/14/2022 07/14/2021, 0 02/22/2019 COVID-19 Vaccine ( season) 2023 02/11/2022, 02/11/2022, 05/30/2021, Additional history exists Influenza Vaccine (FLU shot) (#1) 2023 05/29/2022, 05/27/2021, 06/13/2020, Additional history exists GFR 12/10/2023 06/10/2023, 01/14, 10/26/2022, Additional history exists CKD HGB USE SMARTSET 39885 06/17/202406/17, 01/27/2023, 11/06/2022, Additional history exists Pneumococcal [...] filedocumented as of this encounter Care Teams Weigher And Grader Relationship Specialty Start Date End Date Chuy Batista MD [address] [place] [address] PCP - General Family Medicine 07/11/14 documented as of this encounter
--- OUTSIDE RECORDS SUMMARY | 2023-09-06 08:33 | External Medical Summary | Summary of Care ---
Author Name Unknown Organization [facility] Address [address] [place] [address] Phone [phone] Care Team Providers Care Licensed Massage Therapist Name Role Phone Chuy Batista MD Primary Care Provider +1- [phone] Reason for Visit * Reason Onset Date Comments Appointment 08/30/2023 ANDRZEJ (obstructive sleep apnea) [G47.33] Encounter Details Date Type Department Care Team (Late st Contact Info) Description 08/30/2023 Telephone [facility] [address] [place] [address] Chuy Batista MD [address] [place] [address] Appointment (ANDRZEJ (obstructive sleep apnea)... [...] mRNA, LNP-s, No Pre serve, 2-Dose Series ([employer]) 05/30/2021,10/29/2020,10/08/2020 COVID-19, LNP-s, No Preserve , Prosper-sucrose, [...] sleep apnea) [G47.33] Please call patient to [facility] as we scheduled first available and the is not happy about waiting until December. 08/30/2023 documented in this encounter Plan of Treatment Upcoming Encounters Date Type Department Care Team (Late st Contact Info) Description 11/09/2023 2:30 PM EDT Office Visit Otolaryngology [facility] [address] [place] [address] Dioni Jean-Baptiste DO [address] [place] [address] 11/26/2023 2:20 PM EDT Office Visit Neurology [facility] [address] [facility] [place] [address] Ellie Duncan MD [address] [facility] [place], [place] [address] 11/29/2023 1:00 PM EDT Office Visit [facility] [place] [address] [place] [phone] DecemberDeondre MD [address] [place] [address] 12/16/2023 4:30 PM EDT Office Visit [facility] [place] [facility] [place] [phone] Radha Caballero CRNP [address] [facility] [place] [address] Health Maintenance Due Date Last Done Comments Albumin/Creatinine Ratio 1963 DTaP,Tdap,and Td Vaccines (1 - Tdap) 1964 Depression Screening 04/29/2021 04/29/2020 CKD PHOS USE SMARTSET 22651 07/14/2022 07/14/2021, 0 02/22/2019 COVID-19 Vaccine ( season) 2023 02/11/2022, 02/11/2022, 05/30/2021, Additional history exists Influenza Vaccine (FLU shot) (#1) 2023 05/29/2022, 05/27/2021, 06/13/2020, Additional history exists GFR 12/10/2023 06/10/2023, 01/14, 10/26/2022, Additional history exists CKD HGB USE SMARTSET 16270 06/17/202406/17, 01/27/2023, 11/06/2022, Additional history exists Pneumococcal [...] filedocumented as of this encounter Care Teams Licensed Massage Therapist Relationship Specialty Start Date End Date Chuy Batista MD [address] [place] [address] PCP - General Family Medicine 07/11/14 documented as of this encounter
--- OUTSIDE RECORDS SUMMARY | 2023-09-06 08:34 | External Medical Summary | Summary of Care ---
Author Name Unknown Organization [facility] Address [address] [place] [address] Phone [phone] Care Team Providers Care Exhibition Carver Name Role Phone Chuy Batista MD Primary Care Provider [phone]- [phone] Reason for Referral * Evaluate & Treat - Unlimited Visits (Within 10 days (routine)) - Pending Review Specialty Diagnoses / Procedures Referred By Monik de leon Referred To Contact Physical Therapy / Physical Medicine And Rehab Diagnoses Fall, initial encounter Muscular deconditioning Moderate protein-calorie malnutrition (HCC) Deondre Hill MD [address] [place] [address] Referral ID Status Reason Start Date Expiration Date Visits Requested Visits Authorized [id number] Pending Review Specialty Services Required 08/30/[phone] Question Answer Referral Priority Within 10 days (routine) Where should this appointment be scheduled? Radha Comments At home PT. * Evaluate & Treat - Unlimited Visits (Within 10 days (routine)) - Pending Review Specialty Diagnoses / Procedures Referred By Monik de leon Referred To Contact Sleep Medicine / Sleep Disorders Diagnoses ANDRZEJ (obstructive sleep apnea) Deondre Hill MD [address] [place] [address] Referral ID Status Reason Start Date Expiration Date Visits Requested Visits Authorized [id number] Pending Review Specialty Services Required 08/30/2023 2 2 Question Answer Referral Priority Within 10 days (routine) Where should this appointment be scheduled? [facility] SLE[facility] ADULT REFERRAL Sleep Apnea Testing and Management Does the patient snore and/or gasp at night or has been told they stop breathing at night? Yes Comments Known sleep apnea, significant weight loss with bladder cancer, would like to get back on CPAP Reason for Visit * Reason Comments Re-Check Encounter Details Date Type Department Care Team (Latest Contact Info) Description 08/30/2023 12:40 PM EST Office Visit [facility] [address] [place] [address] Deondre Hill MD [address] [place] [address] Urothelial carcinoma of bladder (HCC)*; Fall, initial encounter; Unintentional weight loss; ANDRZEJ (obstructive sleep apnea); Muscular deconditioning; Moderate protein-calorie malnutrition (HCC); Chronic kidney disease, stage 3b (HCC); Prostate cancer (HCC); Adrenal insufficiency (HCC); Dementia without behavioral disturbance, psychotic disturbance, mood disturbance, or anxiety, unspecified dementia severity, unspecified dementia type (HCC) Allergies Active Allergy Reactions Criticality Noted Date [...] mRNA, LNP-s, No Pre serve, 2-Dose Series ([employer]) 05/30/2021,10/29/2020,10/08/2020 COVID-19, LNP-s, No Preserve , Prosper-sucrose, [...] on file documented as of this encounter Last Filed Vital Signs Vital Sign Reading Time Taken Comments Blood Pressure 126/84 08/30/2023 12:40 PM EST Pulse 79 08/30/2023 12:40 PM EST Temperature 36.5 C (97.7 F) 08/30/2023 1 2:40 PM EST Respiratory Rate 16 08/30/2023 12:4 0 PM EST Oxygen Saturation 98% 08/30/2023 12: 40 PM EST Inhaled Oxygen Concentration - - Weight 109.4 kg (241 lb 1.6 oz) 024 12:40 PM EST Height - - Body Mass Index 30.96 05/11/2023 11:02 AM EDT documented in this encounter Progress Notes * Deondre Hill MD - 08/30/2023 12:53 PM EST Images from the original note were not included. Assessment and Plan 1. Urothelial carcinoma of bladder (HCC) Unresectable. Following with Urology and Hematology/Oncology. Continue Keytruda. Plans for cystoscopy in the next couple of weeks to monitor tumor burden and determine next steps. 2. Fall, initial encounter Mechanical fall. Suspect deconditioning played a significant role. I do have significant concerns about patient's ability to complete ADLs and his significant risk of fall when leaving the home. He would benefit from home physical therapy to assist with deconditioning. Referral placed. - PHYSICAL THERAPY REFERRAL OP 3. Unintentional weight loss 20 lb weight loss unintentionally related to urothelial carcinoma as above. Start mirtazapine as anappetite stimulant. Focus on protein had meals. - Mirtazapine 15 MG Oral Tablet (Remeron); Take 1 Tablet by mouth at bedtime. Dispense: 30 Tablet; Refill: 5 4. ANDRZEJ (obstructive sleep apnea) Return to sleep Medicine to assist with CPAP. - SLEEP MEDICINE REFERRAL OP 5. Muscular deconditioning - PHYSICAL THERAPY REFERRAL OP 6. Moderate protein-calorie malnutrition (HCC) - PHYSICAL THERAPY REFERRAL OP 7. Chronic kidney disease, stage 3b (HCC) Creatinine 1.5 with GFR around 45. 8. Prostate cancer (HCC) 9. Adrenal insufficiency (HCC) Wrap-Up Follow up in 3 months. History of Present Illness The patient is a 78-year-old male with past medical history of urothelial carcinoma of the bladder,history of prostate cancer, CKD stage IIIB, ANDRZEJ, adrenal insufficiency, dementia who presents for follow up. The patient was last seen by this provider in March 2023. 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 Unfortunately he had ongoing bleeding and a cystoscopy found recurrent urothelial carcinoma. He underwent resection in June 2023, however, there was unresectable tumor. He is currently taking Keytruda every 3 weeks and following with [facility] Urology and Oncology. Per patient's report he is scheduled for a repeat cystoscopy in a couple of weeks to monitor tumor burden and determine next steps in care. He has multiple concerns today. His primary concern is his weight. His weight is down [id number] lb from February 2023. Him in his are wondering about an appetite stimulant. He was having issues with fatigue. This is shortly related to the cancer and chemotherapy, however, he also has a CPAPthat he has not currently using and would like to return to. He believes he may need a new CPAP. Heis willing to follow up with sleep Medicine. He also had a recent fall to his buttocks without headtrauma. He stood up from the couch and slipped on the solid floor while wearing socks. He has significant fatigue and deconditioning. This patient is suspected to have obstructive sleep apnea given snoring, witnessed apneas and significant daytime sleepiness. A sleep study was therefore ordered. We discussed treatment modalities for ANDRZEJ including PAP. Physical Exam Vitals: 08/30/23 1240 Temp: 36.5 C (97.7 F) Pulse: 79 Resp: 16 SpO2: 98% BP: 126/84 Physical Exam Physical Exam Vitals reviewed. Constitutional: General: He is not in acute distress. Comments: Chronically ill-appearing. Cardiovascular: Rate and Rhythm: Normal rate and regular rhythm. Heart sounds: Murmur heard. Pulmonary: Effort: Pulmonary effort is normal. No respiratory distress. Breath sounds: Normal breath sounds. Skin: General: Skin is warm and dry. Neurological: General: No focal deficit present. Mental Status: He is alert. Time: I spent a total of 30-39 minutes (exact time 35 mins) on the date of service in preparation, delivery, and documentation of the care provided to the patient excluding any time spent in the performance of separately billed services. documented in this encounter Nursing Notes * Shuana Mc LPN - 08/30/2023 12:40 PM EST Would like to discuss in home PT, starting back up on CPAP, incontinence issues, Keytruda injections, had a fall a couple of days ago, questions about Trelegy Ellipta as well, weight loss without trying With fall, pt landed on butt - denies injury documented in this encounter Plan of Treatment Upcoming Encounters Date Type Department Care Team (Late st Contact Info) Description 11/09/2023 2:30 PM EDT [facility] [address] [place] [address] Dioni Jean-Baptiste DO [address] [place] [address] 11/26/2023 2:20 PM EDT Office Visit Neurology [facility] [place] [address] [place] [address] Ellie Duncan MD [address] [place] [address] 11/29/2023 1:00 PM EDT [facility] [address] [facility] [place] [address] Deondre Hill MD [address] [place] [address] 12/16/2023 4:30 PM EDT Office Visit [facility] Disorders [facility]tr [facility] [address] [place] [id number] Radha Caballero CRNP [address] [place] [address] Scheduled Referrals Name Type Priority Associated Diagnoses Orde r Schedule SLEEP MEDICINE REFERRAL OP Referral Within 10 days (routine) ANDRZEJ (obstructive sleep apnea) Ordered: 08/30/2023 PHYSICAL THERAPY REFERRAL OP Referral Within 10 days (routine) Fall, initial encounter Muscular deconditioning Moderate protein-calorie malnutrition (HCC) Ordered: 08/30/2023 Health Maintenance Due Date Last Done Comments Albumin/Creatinine Ratio 1963 DTaP,Tdap,and Td Vaccines (1 - Tdap) 1964 Depression Screening 04/29/2021 04/29/2020 CKD PHOS USE SMARTSET 72805 07/14/2022 07/14/2021, 0 02/22/2019 COVID-19 Vaccine ( season) 2023 02/11/2022, 02/11/2022, 05/30/2021, Additional history exists Influenza Vaccine (FLU shot) (#1) 2023 05/29/2022, 05/27/2021, 06/13/2020, Additional history exists GFR 12/10/2023 06/10/2023, 01/14, 10/26/2022, Additional history exists CKD HGB USE SMARTSET 48023 06/17/202406/17, 01/27/2023, 11/06/2022, Additional history exists Pneumococcal [...] Not on filedocumented as of this encounter Visit Diagnoses Diagnosis Urothelial carcinoma of bladder (HCC)- Primary Fall, initial encounter Unintentional weight loss Loss of weight ANDRZEJ (obstructive sleep apnea) Obstructive sleep apnea (adult) (pediatric) Muscular deconditioning Muscular wasting and disuse atrophy, not elsewhere classified Moderate protein-calorie malnutrition (HCC) Malnutrition of moderate degree Chronic kidney disease, stage 3b (HCC) Prostate cancer (HCC) Malignant neoplasm of prostate Adrenal insufficiency (HCC) Glucocorticoid deficiency Dementia without behavioral disturbance, psychotic disturbance, mood disturbance, or anxiety, unspecified dementia severity, unspecified dementia type (HCC) documented in this encounter Care Teams Exhibition Carver Relationship Specialty Start Date End Date Chuy Batista MD [address] [place] [address] PCP - General Family Medicine 07/11/14 documented as of this encounter
--- OUTSIDE RECORDS SUMMARY | 2023-09-06 08:34 | External Medical Summary | Summary of Care ---
Author Name Unknown Organization [facility] Address [address] [place] [address] Phone [phone] Care Team Providers Care Marketing Systems Manager Name Role Phone Chuy Batista MD Primary Care Provider +1- [phone] Reason for Visit * Reason Comments eRx-Medication Refill Encounter Details Date Type Department Care Team (Late st Contact Info) Description 08/19/2023 Refill Neurology [facility] [address] [facility] [place] [address] Ellie Duncan MD [address] [facility] [place] [address] Allergies Active Allergy Reactions Criticality Noted Date Comments Chocolate Diarrhea 05/14/2023 Clindamycin Hcl 09/24/2005 rash Iodinated Contrast Media 10/01/2015 Ioversol Other (Please comment) High 08/10/[address] IV DYE documented as of this encounter (statuses as of 08/20/2023) Medications Medication Sig Dispensed Refills Start Date End Date Status Syringe/Needle, Disp, 25G X 1-1/2" 3 ML MISC To use with injection of hydrocortisone if needed 2 Each 5 6 Active Hydrocortisone 5 MG Oral Tablet (Cortef) 4 Tablets in the morning and 4 Tablets before bedtime. 3 tablet in the AM, one tablet at noon and one tablet in the PM.. 0 1 Active Fluticasone Propionate 50 MCG/ACT Nasal Suspension (Flonase) SPRAY 2 SPRAYS INTO EACH NOSTRIL IN THE MORNING 16 mL 3 3 Active Trelegy Ellipta 200-62.5-25 MCG/ACT Aerosol Powder Breath Activated (Fluticasone-Um eclidinium-Shyam nterol) Inhale 1 Puff by mouth every evening. 60 Blister Dosing Unit 11 3 Active Additional Information Patient not taking.Reported on 05/14/2023 Memantine HCl 10 MG Oral Tablet (Namenda) Take 1 Tablet by mouth 2 times a day with morning and evening meals. 180 Tablet 3 3 Active EpiPen 2-Pedro 0.3 MG/0.3ML Injection Solution Auto-injectorIn dications:Anaph ylaxis, sequela USE DIRECTED 1 Each 0 3 Active Montelukast Sodium 10 MG Oral Tablet (Singulair)Denice cations:Chronic allergic rhinitis Take 1 Tablet by mouth in the morning. 90 Tablet 3 3 Active Multi Adult Gummies Oral Tablet Chewable Take by mouth. 0 Activ e Vitamin D 125 MCG (5000 UT) Oral Capsule Take by mouth. 0 Active Vitamin E 100 UNIT Oral Capsule Take 1 Capsule by mouth in the morning. 0 Active Sennosides-Docu sate Sodium 8.6-50 MG Oral Tablet Take 1 Tablet by mouth as needed. 0 3 Active Donepezil HCl 10 MG Oral Tablet (Aricept) TAKE 1 TABLET BY MOUTH EVERY MORNING WITH LARGEST MEAL OF THE DAY. 90 Tablet 0 4 Active Donepezil HCl 10 MG Oral Tablet (Aricept) Take by mouth 1 Tablet in the morning. Take with largest meal of the day.. 90 Tablet 5 2 08/20/19 24 Discontinued Hospital, Clinic, or Other Facility Administered Medication Ordered Dose Route Frequency Start Date End Date Status albuterol sulfate (PROVENTIL) (2.5 MG/3ML) 0.083% inhalation solution 2.5 mgIndications:Moderate persistent asthma without complication,MORA (dyspnea on exertion) 2.5 mg NEBULIZER Q4H PRN 2018 Active documented as of this encounter (statuses as of 08/20/2023) Active Problems Problem Noted Date Diagnosed Date Unspecified dementia, unspec ified severity, without [...] as of this encounter (statuses as of 08/20/2023) Resolved Problems Problem Noted Date Diagnosed Date [...] as of this encounter (statuses as of 08/20/2023) Immunizations Name Administration Dates Next Due COVID-19 mRNA, LNP-s, No Pre serve, 2-Dose Series ([employer]) 05/30/2021,10/29/2020,10/08/2020 COVID-19, LNP-s, No Preserve , Prosper-sucrose, [...] encounter Miscellaneous Notes * Telephone Encounter - Mallory Hewitt [facility] - 08/20/2023 12:41 PM EST Signed Prescriptions: Disp Refills Donepezil HCl 10 MG Oral Tablet (Aricept) 90 Tab*0 Sig: TAKE 1 TABLET BY MOUTH EVERY MORNING WITH LARGEST MEAL OF THE DAY.Authorizing Provider: ELLIE DUNCAN User: MALLORY HEWITT * Telephone Encounter - Mallory Hewitt [facility] - 08/20/2023 12:41 PM EST Signed Prescriptions: Disp Refills Donepezil HCl 10 MG Oral Tablet (Aricept) 90 Tab*0 Sig: TAKE 1 TABLET BY MOUTH EVERY MORNING WITH LARGEST MEAL OF THE DAY.Authorizing Provider: ELLIE DUNCAN User: MALLORY HEWITT * Telephone Encounter - Mallory Hewitt [facility] - 08/20/2023 12:39 PM EST Refill authorized. Patient has upcoming appt. Thanks, Mallory Hewitt, PharmD Clinical Pharmacist [facility](formerly telepharmacy) [phone] 08/20/2023, 12:40 PM * Telephone Encounter - Betty Burkett [facility] - 08/19/2023 9:54 AM EST Did you pend patient's preferred pharmacy and medication before forwarding?yes Pharmacy: [facility] [id number] [place] Pending Prescriptions: Disp Refills Donepezil HCl 10 MG Oral Tablet (Aricept)*90 Tab*5 Sig: TAKE 1 TABLET BY MOUTH EVERY MORNING WITH LARGEST MEAL OF THE DAY. Last Visit: 05/20/2023 (in office), Visit date not found (telemedicine) Next Visit: 11/26/2023 If no future appointments scheduled, and last appointment is greater than a year ago, please schedule patient for a follow-up appointment Last date the medication was ordered: 05.01.22 Is this request for a controlled substance?No Urine Drug Screen:No results found for this or any previous visit. Patient Phone Numbers Labs: Lab Results Component Value Date/Time CREAT 1.54 (A) 06/10/2023 12:00 AM CREAT 1.7 (H) 09/01/2019 02:02 PM POTASSIUM 3.8 06/10/2023 12:00 AM POTASSIUM 4.6 09/01/2019 02:02 PM TSH 1.91 10/26/2022 01:19 PM TSH 1.520 01/24/2020 12:00 AM TSH 2.06 09/01/2019 02:02 PM ALT 17 01/27/2023 10:59 AM ALT 21 09/01/2019 02:02 PM HGBA1C 4.8 10/26/2022 01:19 PM * Telephone Encounter - Brianna Benavides PHARM Tech - 08/19/2023 9:52 AM EST Pt ec transferred to the speciality line Thank you, Brianna Benavides CPhT Disabilities Caregiver [facility] ([facility]) (formerly Telepharmacy) 08/19/2023,9:53 AM documented in this encounter Plan of Treatment Upcoming Encounters Date Type Department Care Team (Late st Contact Info) Description 08/24/2023 11:20 AM EST Office Visit [facility] [address] [place] [id number] DecemberDeondre MD [address] [place] [address] 11/09/2023 2:30 PM EDT [facility] [place] [address] Dioni Jean-Baptiste DO [address] [place] [address] 11/26/2023 2:20 PM EDT [facility] [address] [place] [address] Ellie Duncan MD [address] [place] [address] Health Maintenance Due Date Last Done Comments Albumin/Creatinine Ratio 1963 DTaP,Tdap,and Td Vaccines (1 - Tdap) 1964 Depression Screening 04/29/2021 04/29/2020 CKD PHOS USE SMARTSET 56208 07/14/2022 07/14/2021, 0 02/22/2019 COVID-19 Vaccine (5 - 2022- season) 2023 02/11/2022, 02/11/2022, 05/30/2021, Additional history exists Influenza Vaccine (FLU shot) (#1) 2023 05/29/2022, 05/27/2021, 06/13/2020, Additional history exists GFR 12/10/2023 06/10/2023, 01/14, 10/26/2022, Additional history exists CKD HGB USE SMARTSET 12762 06/17/202406/17, 01/27/2023, 11/06/2022, Additional history exists Pneumococcal [...] filedocumented as of this encounter Care Teams Marketing Systems Manager Relationship Specialty Start Date End Date Chuy Batista MD [address] [place] [address] PCP - General Family Medicine 07/11/14 documented as of this encounter
--- NOTE | 2023-09-06 08:42 | XRay Report ---
XR chest 1V portable CLINICAL HISTORY: Dyspnea. COMPARISON STUDY: Chest radiograph April 13, 2023. Chest CT August 19, 2023. FINDINGS: There is no pneumothorax or pleural effusion. Mild left basilar opacity favors atelectasis or scarring. There is no evidence for pulmonary edema. No consolidation to suggest pneumonia. Cardiom ediastinal silhouette is stable. IMPRESSION: No acute cardiopulmonary findings. No significant change in appearance of the chest. ACT 112: Negative or not required by law. Electronically signed by: Boris Keys M.D. 09/06/2023 8:41 AM
[2023-09-06 08:47] LABS: Basophils # (auto) 0.04 K/uL (0.00-0.20); Basophils % (auto) 0.5 %; Eosinophils # (auto) 0.13 K/uL (0.00-0.50); Eosinophils % (auto) 1.7 %; Immature Granulocytes # (auto) 0.03 K/uL (0.01-0.20); Immature Granulocytes % (auto) 0.4 %; Lymphocytes # (auto) 1.46 K/uL (1.20-3.40); Lymphocytes % (auto) 19.1 %; Mean Corpuscular Hemoglobin 27.9 pg (25.0-34.0); Mean Corpuscular Hgb Conc 31.1 g/dL (32.0-36.0); Mean Corpuscular Volume 89.6 fL (80.0-100.0); Mean Platelet Volume 8.8 fL (9.4-12.4); Monocytes # (auto) 0.66 K/uL (0.11-0.59); Monocytes % (auto) 8.6 %; Neutrophils # (auto) 5.32 K/uL (1.40-6.50); Neutrophils % (auto) 69.7 %; Platelet Count 256 K/uL (130-400); RDW Coefficient of Variation 17.2 % (11.5-14.5); RDW Standard Deviation 56.2 fL (36.4-46.3); Red Blood Count 5.02 M/uL (4.70-6.10); White Blood Count 7.64 K/ul (4.8-10.8)
--- NOTE | 2023-09-06 08:56 | CT Scan Report ---
CT OF THE HEAD WITHOUT CONTRAST CLINICAL HISTORY: Fall. COMPARISON STUDY: MRI of the brain February 02, 2020. Head CT March 03, 2023. TECHNIQUE: Helical axial images of the head were obtained without IV contrast. Automated exposure con trol was utilized for the study. A dose lowering technique was utilized adhering to the principles o f ALARA. FINDINGS: No acute intracranial hemorrhage, midline shift or mass effect is present. The ventricular system is stable. Hypodensities within the bilateral basal ganglia remain unchanged. The appearance o f the brain is unchanged. The basal cisterns are patent. No extra-axial collections are present. Ther e are no findings to suggest acute dural sinus thrombosis or acute territorial infarct. There is no a cute calvarial fracture. Secretions with air-fluid level within the left maxillary sinus are present. There is a mucous retention cyst within the right maxillary sinus. IMPRESSION: 1. No acute intracranial findings. 2. No calvarial fracture. ACT 112: Negative or not required by law. Electronically signed by: Boris Keys M.D. 09/06/2023 8:55 AM
[2023-09-06 09:01] LABS: Albumin Globulin Ratio 1.4 (0.9-2); Albumin Level 4.3 gm/dl (3.4-5.0); BUN Creatinine Ratio 18.5 (10-20); Bilirubin,Total 0.7 mg/dl (0.2-1.0); Calcium 9.7 mg/dl (8.6-10.3); Creatinine Clr Calc Pharmacy 50.6 ml/min; Est GFR (Non-African American) 45.7 ml/min; Globulin 3.1 gm/dl (2.5-4.0); Total Protein 7.4 gm/dl (6.0-8.3)
--- NOTE | 2023-09-06 09:01 | CT Scan Report ---
CT cervical spine wo con CT DOSE: 1400.4 mGy.cm CLINICAL HISTORY: 78 years-old Male with fall. Acute neck pain status post fall COMPARISON: None TECHNIQUE: Multiple axial CT images of the cervical spine were obtained without contrast. A dose low ering technique was utilized adhering to the principles of ALARA. FINDINGS: Demineralized appearance to the bones. Moderate multilevel and vertebral disc space narrowi ng, spondylitic spurring and facet arthrosis. T2 vertebral body hemangioma. Moderate mucoperiosteal t hickening of the sphenoid sinuses. Mild dextroscoliosis. No acute cervical spine fracture or subluxat ion identified. The cervical soft tissues appear unremarkable. The visualized lung apices appear clear. IMPRESSION: No acute cervical spine fracture or subluxation identified. ACT 112: Negative or not required by law. The above report was generated using voice recognition software. It may contain grammatical, syntax o r spelling errors. Electronically signed by: Chaim Curiel M.D. 09/06/2023 8:59 AM
[2023-09-06 09:08] LABS: Troponin I High Sensitivity 39.8 pg/ml (0-20)
[2023-09-06 09:10] LABS: Prothrombin Time 11.1 Seconds (9.0-12.0)
[2023-09-06 09:30] LABS: Adenovirus PCR Not Detected (NotDetected); Bordetella parapertussis PCR Not Detected (NotDetected); Bordetella pertussis PCR Not Detected (NotDetected); Chlamydia pneumoniae PCR Not Detected (NotDetected); Coronavirus 229E PCR Not Detected (NotDetected); Coronavirus CoV-2 (COVID19)PCR Not Detected (NotDetected); Coronavirus HKU1 PCR Not Detected (NotDetected); Coronavirus NL63 PCR Not Detected (NotDetected); Coronavirus OC43PCR Not Detected (NotDetected); Human Metapneumovirus PCR Not Detected (NotDetected); Influenza A PCR Not Detected (NotDetected); Influenza B PCR Not Detected (NotDetected); Mycoplasma pneumoniae PCR Not Detected (NotDetected); Parainfluenza Virus 1 PCR Not Detected (NotDetected); Parainfluenza Virus 2 PCR Not Detected (NotDetected); Parainfluenza Virus 3 PCR Not Detected (NotDetected); Parainfluenza Virus 4 PCR Not Detected (NotDetected); Respiratory Syncytial VirusPCR Not Detected (NotDetected); Rhinovirus/Enterovirus PCR Not Detected (NotDetected)
--- NOTE | 2023-09-06 11:00 | History & Physical Report ---
Date of Service September 06, 2023 Assessment & Plan (1) SOB (shortness of breath): Plan: This is a 78 y/o male with bladder cancer, on immunotherapy, adrenal insufficiency, asthma, hx DVT/PE, s/p IVC filter, dementia, prior prostate cancer, aortic stenosis, CKD3b, HTN, and other history as outlined below who presents to the ED today with progressive dyspnea and weakness. These symptoms seem to have been worsening since starting immunotherapy but are particularly worse over the last few days. Work-up in the ED revealed a mildly elevated troponin but no significant EKG changes. He was also noted to have bilateral LE edema - off chronic warfarin due to hematuria and anemia, had IVC filter placed in December 2022. - Admit to med telemetry - Check ECHO due to history of aortic stenosis, peripheral edema. BNP was normal - Duplex to evaluate for LE DVT, check D-dimer - Not requiring O2 at present - continue to monitor (2) Weakness: Plan: Suspect component of deconditioning - PT/OT evaluations - Case management consult for possible short-term rehab, assistance arranging home services (3) Fall: Plan: See plan for #2 Fall precautions (4) Elevated liver function tests: Plan: New from last labs - AST 13, ALT 17 in January 2023 - Check RUQ ultrasound - Recheck in AM (5) Elevated troponin: Plan: No chest pain, no EKG changes. 39.8 --> 34.2 ECHO pending Monitor on telemetry (6) Primary bladder malignant neoplasm: Plan: Scheduled for immunotherapy tomorrow - pt's will notify oncologist that pt is currently admitted. Will need to f/u with onc tomorrow to determine timing of next immunotherapy pending current work-up (7) Asthma: Plan: Chronic - continue outpatient inhalers (8) Obstructive sleep apnea: Plan: Pt used CPAP previously but not using presently - needs outpatient sleep medicine f/u (9) Adrenal insufficiency: Plan: Chronic, stable Continue current outpatient hydrocortisone dosing (10) Dementia: Plan: Chronic, stable - Continue donepezil, memantine Plan Pt seen and evaluated with collaborating physician, Dr. Christian. Plan of care discussed and as outlined above. Code Status: Full code DVT Prophylaxis: SubQ heparin Roma Carpenter PA-C History of Present Illness Chief Complaint: Worsening shortness of breath Primary Care Provider: Deondre Hill MD This is a 78 y/o male with bladder cancer, on immunotherapy, adrenal insufficiency, asthma, hx DVT/PE, s/p IVC filter, dementia, prior prostate cancer, aortic stenosis, CKD3b, HTN, and other history as outlined below who presents to the ED today with progressive dyspnea and weakness. Pt started Keytruda in July and reports two treatments thus far, with his third sche duled for tomorrow. Since starting immunotherapy, he has noted progressive weakness. He also notes chronic issues with shortness of breath but worsening recently, which he partially attributes to deconditioning. He reports that he had been walking regularly to keep up his strength but not able to walk outside recently due to weather. Initially shortness of breath was mostly with exertion but now SOB with even minimal exertion. He has had a cough for the past few days. Feels like something is stuck in his throat no known episodes of getting food stuck in his throat or aspiration. Cough is minimally productive of yellow phlegm, green at times. Denies chest pain. He had a fall last Wed - landed on hip and buttocks. Has had some neck pain since then. He often gets lightheaded with standing. He has noted loss of appetite and weight loss since being on immunotherapy. His PCP prescribed Remeron last week, which he apparently took once but had side effects so has not taken since. No fevers, chills, N/V, abd pain, blood in stool, wheezing. No recent hematuria in past week. No dysuria. Ongoing issues with urinary incontinence so wears depends. BMs over the last week have not been well formed but denies diarrhea. No change in chronic swelling of RLE. Allergies Allergy/AdvReac Type Severity Reaction Status Date / Time Iodinated Contrast Media Allergy Severe LOVERSOL---CARDIAC Verified 06/25/23 09:[address] CONTRAST clindamycin Allergy Unknown Unknown Verified 06/25/23 09:53 chocolate flavor AdvReac Severe Cannot Verified 06/25/23 09:53 take, interacts w/ medications. cranberry AdvReac Severe Cannot Verified 06/25/23 09:53 take, interacts w/ medications. Home Medications Medication Instructions Recorded Confirmed Type cholecalciferol (vitamin D3) 125 125 mcg PO QPM 06/20/20 09/06/23 History mcg (5,000 unit) capsule donepezil 10 mg tablet 10 mg PO QAM 04/13/22 09/06/23 History multivitamin with minerals 1 cap PO DAILY 04/13/22 09/06/23 History ascorbic acid (vitamin C) 1,000 mg 1,000 mg PO QAM 08/27/22 09/06/23 History tablet (Vitamin C) epinephrine 0.3 mg/0.3 mL 0.3 mg IM DIRECTED PRN 11/30/22 09/06/23 History injection, auto-injector anaphylaxis memantine 10 mg tablet 10 mg PO BID 11/30/22 09/06/23 History montelukast 10 mg tablet 10 mg PO DAILY 11/30/22 09/06/23 History albuterol sulfate 90 mcg/actuation 2 puff inhalation Q6H PRN 12/03/22 09/06/23 Rx aerosol inhaler shortness of breath or wheezing #8.5 grams fluticasone fur. 200 mcg-umeclid 1 inh inhalation QPM 12/12/22 09/06/23 History 62.5 mcg-vilant 25 mcg inhalat.powder (Trelegy Ellipta) fluticasone propionate 50 2 spray intranasal DAILY PRN 12/12/22 09/06/23 History mcg/actuation nasal allergies spray,suspension vitamin E 268 mg (400 unit) capsule 268 mg PO DAILY 02/18/23 09/06/23 History hydrocortisone 5 mg tablet See Rx Instructions .Route 03/05/23 09/06/23 Rx .COMPLEX 90 days #450 tabs ferrous sulfate 325 mg (65 mg 325 mg PO DAILY 04/07/23 09/06/23 History iron) tablet,delayed release Past Med/Surg History Medical History (Updated 09/06/23 @ 13:41 by Maura Carpenter PA-C) History of recent blood transfusion Bladder cancer Weakness Mild cognitive impairment, so stated Anemia (06/25/23)to start receiving iron infusions Radiation cystitis Kidney stones x1 episode. no surgery needed. 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 Chronic steroid use Sleep apnea Cpap Cardiac arrest hx r/t IV Contrast Dye "many years ago" History of pulmonary embolism hx "many years ago" unknown etiology History of DVT (deep vein thrombosis) hx "many years ago" unknown etiology acute on chronic DVT during 12/2022 [facility] admission- Coumadin d/c'ed due to anemia and hematuria; IVC filter placed 12/28/22 Stage 3 chronic kidney disease Ascending aorta dilation Mild- 4.4cm per 11/2022 ECHO Aortic stenosis Mild per 12/2022 ECHO -follows annually with cardiology Adrenal insufficiency Allergic rhinitis Asthma (10/03/11) well controlled. Benign prostatic hyperplasia Contrast media allergy Venous insufficiency (chronic) (peripheral) Hiatal hernia COPD (chronic obstructive pulmonary disease) well controlled. uses Breo daily with exercise Surgical History S/P IVC filter S/P cataract extraction History of right cataract extraction History of colonoscopy H/O sinus surgery History of appendectomy S/P TURP (status post transurethral resection of prostate) Status post cystoscopy (11/07/13) Family History Father Prostate cancer Brother Prostate cancer Mother Thyroid cancer Cancer Other No family history of adverse response to anesthesia Social History Smoking Status: Never smoker Tobacco Type: Cigarettes Second Hand Exposure: No; Do You Dip or Chew Tobacco: No; Hx Alcohol Use: No Hx Substance Use: No Preferred Language: [place] Communication Ability: Effective Visual Impairment: Limited Hearing Ability: Normal [place] Required: No Beliefs That Will Affect Care: None marital status: Current Living Situation: Spouse Current Living Situation Comment: at home with current occupational status: retired How many Children do You have: 0 Other Information That Helps Us Care for You: No Feels Safe at Home: Yes Safety Concerns: Feels Safe At This Time Diet: regular during the past year weight has: decreased > 10 lbs Seatbelt Use: always Do you think of yourself as: straight/heterosexual Gender Identity: Male Assistive Devices: Walker Review of Systems Review of Systems: All systems reviewed & are unremarkable except as noted in HPI & below Constitutional: + fatigue, + weakness and + anorexia; no fever and no chills Ear, Nose, Mouth, Throat: no nasal congestion and no sore throat Respiratory: + cough and + dyspnea on exertion; no wh eezing Cardiovascular: + edema; no chest pain and no palpitatio ns Gastrointestinal: no abdominal pain, no nausea, no vomiting and no blood in stools Genitourinary: no dysuria or no hematuria Musculoskeletal: + neck pain Neurologic: + unsteadiness, + falls and + generalize d weakness Physical Exam Physical Exam: Please see physician addendum for the details of the physical exam. Results & Data Results & Data Vital Signs (Past 12 Hours) Vital Signs Temp Pulse Resp BP Pulse Ox O2 Del Method 09/06/23 08:25 96 Room Air 09/06/23 08:24 91 H 09/06/23 08:12 36.6 C 90 20 142/88 H 97 Room Air Laboratory Results Laboratory Results - last 24 hr 09/06/23 09/06/23 09/06/23 08:25 08:27 09:46 WBC 7.64 RBC 5.02 Hgb 14.0 Hct 45.0 MCV 89.6 MCH 27.9 MCHC 31.1 L RDW Std Deviation 56.2 H RDW Coeff of Robert 17.2 H Plt Count 256 MPV 8.8 L Immature Gran % (Auto) 0.4 Neut % (Auto) 69.7 Lymph % (Auto) 19.1 [place] % (Auto) 8.6 Eos % (Auto) 1.7 Baso % (Auto) 0.5 Neut # (Auto) 5.32 Lymph # (Auto) 1.46 [place] # (Auto) 0.66 H Eos # (Auto) 0.13 Baso # (Auto) 0.04 Immature Gran # (Auto) 0.03 PT 11.1 INR 1.0 Sodium 144 Potassium 4.0 Chloride 106 Carbon Dioxide 30 Anion Gap 8 BUN 27 H Creatinine 1.46 H Est Cr Clr Drug Dosing 50.6 Est GFR ( Amer) 53.0 Est GFR (Non-Af Amer) 45.7 BUN/Creatinine Ratio 18.5 Glucose 106 H Calcium 9.7 Total Bilirubin 0.7 AST 106 H ALT 119 H Alkaline Phosphatase 83 Troponin I High Sens 39.8 H 34.2 H B-Natriuretic Peptide 14 Total Protein 7.4 Albumin 4.3 Globulin 3.1 Albumin/Globulin Ratio 1.4 Adenovirus (PCR) Not Detected B. pertussis DNA (PCR) Not Detected B.parapertussis DNA PCR Not Detected C. pneumoniae DNA (PCR) Not Detected Coronavirus OC43 (PCR) Not Detected Coronavirus HKU1 (PCR) Not Detected Coronavirus 229E (PCR) Not Detected SARS-CoV-2 (PCR) Not Detected Coronavirus NL63 (PCR) Not Detected Human Metapneumovir PCR Not Detected Influenza Type A (PCR) Not Detected Influenza Type B (PCR) Not Detected M. pneumoniae (PCR) Not Detected Parainfluenza 1 (PCR) Not Detected Parainfluenza 2 (PCR) Not Detected Parainfluenza 3 (PCR) Not Detected Parainfluenza 4 (PCR) Not Detected RSV (PCR) Not Detected Entero/Rhino (PCR) Not Detected Diagnostic Findings Chest X-Ray 09/06/23 08:19 XR chest 1V portable CLINICAL HISTORY: Dyspnea. COMPARISON STUDY: Chest radiograph April 13, 2023. Chest CT August 19, 2023. FINDINGS: There is no pneumothorax or pleural effusion. Mild left basilar opacity favors atelectasis or scarring. There is no evidence for pulmonary edema. No consolidation to suggest pneumonia. Cardiomediastinal silhouette is stable. IMPRESSION: No acute cardiopulmonary findings. No significant change in appearance of the chest. ACT 112: Negative or not required by law. Electronically signed by: Boris Keys M.D. 09/06/2023 8:[address] 09/06/23 08:23 CT cervical spine wo con CT DOSE: 1400.4 mGy.cm CLINICAL HISTORY: 78 years-old Male with fall. Acute neck pain status post fall COMPARISON: None TECHNIQUE: Multiple axial CT images of the cervical spine were obtained without contrast. A dose lowering technique was utilized adhering to the principles of ALARA. FINDINGS: Demineralized appearance to the bones. Moderate multilevel and vertebral disc space narrowing, spondylitic spurring and facet arthrosis. T2 vertebral body hemangioma. Moderate mucoperiosteal thickening of the sphenoid sinuses. Mild dextroscoliosis. No acute cervical spine fracture or subluxation identified. The cervical soft tissues appear unremarkable. The visualized lung apices appear clear. IMPRESSION: No acute cervical spine fracture or subluxation identified. ACT 112: Negative or not required by law. The above report was generated using voice recognition software. It may contain grammatical, syntax or spelling errors. Electronically signed by: Chaim Curiel M.D. 09/06/2023 8:[address] 09/06/23 08:23 CT OF THE HEAD WITHOUT CONTRAST CLINICAL HISTORY: Fall. COMPARISON STUDY: MRI of the brain February 02, 2020. Head CT March 03, 2023. TECHNIQUE: Helical axial images of the head were obtained without IV contrast. Automated exposure control was utilized for the study. A dose lowering technique was utilized adhering to the principles of ALARA. FINDINGS: No acute intracranial hemorrhage, midline shift or mass effect is present. The ventricular system is stable. Hypodensities within the bilateral basal ganglia remain unchanged. The appearance of the brain is unchanged. The basal cisterns are patent. No extra-axial collections are present. There are no findings to suggest acute dural sinus thrombosis or acute territorial infarct. There is no acute calvarial fracture. Secretions with air-fluid level within the left maxillary sinus are present. There is a mucous retention cyst within the right maxillary sinus. IMPRESSION: 1. No acute intracranial findings. 2. No calvarial fracture. ACT 112: Negative or not required by law. Electronically signed by: Boris Keys M.D. 09/06/2023 8:55 AM Supervising Physician Co-Signing Physician Notes History and exam performed by la 78 year old man with bladder cancer, unresectable on pembrolizumab, h/o prostate ca s/p resection and radiation, DVT/PE was previously on warfarin but stopped due to hematuria/anemia s/p IVC filter, AI/Yuba's disease who presents with worsening SOB, fatigue that has been progressive over months Also had a fall last week Reports dyspnea with minimal exertion, orthostatic dizziness, anorexia, minimal cough Denied chest pain, palpitation Reports stool is loose but not watery. No melena/hematochezia Bladder/bowel incontinence. Uses depends reported one episode on bloody in depends some weeks ago. Patient denied any current episode On exam, General: No acute distress Eyes: PERRL, conjunctivae normal, not pale, anicteric sclerae, EOM intact bilaterally ENMT: External ear and nose normal, oropharynx normal Respiratory: Normal respiratory effort, no respiratory distress, lungs clear to auscultation, no crackles and no wheezes Cardiovascular: RRR S1 S2, +murmur Gastrointestinal (Abdomen): Abdomen is not distended, soft, non-tender to pa lpation, no guarding, no palpable hepatosplenomegaly, normal bowel sounds Musculoskeletal: +Pedal edema (pt reports this is chronic and unchanged), stasis skin changes on left leg Genitourinary: No CVA tenderness Neurologic: Alert and oriented x 3, No focal weakness, sensation grossly intact Psychiatric: Euthymic affect Labs notable for trop of 39-34, AST 106, ALT 119, Cr 1.43 (baseline) XR chest did not show acute abnormalities CT head did not show acute fracture CT cervical spine did not show fracture. Patient's symptoms could be due to deconditioning Mildly elevated trop. BNP is normal Will get TTE. If significant findings, get Cardiology involvement Telemetry monitoring. LFT is elevated. Get RUQ USS Check UA Check DDimer. If elevated, get VQ scan. Patient reported cardiac arrest to contrast in the past. Get LE dopplers reported he is supposed to get his pembrolizumab tomorrow. Attending tomorrow can follow up with Onco depending on outcome of workup/evaluation to d etermine if patient will still get that tomorrow or need rescheduled PT/OT Other plans as detailed by Cristiana Carpenter PA-C I spent a total of 50 minutes coordinating, documenting and providing care for this patient excluding time spent in performance of separately billed services (3) Fall Encounter type: initial encounter Qualified Code(s): W19.XXXA - Unspecified fall, initial encounter (7) Asthma Asthma complication type: uncomplicated Asthma persistence: persistent Asthma severity: mild Qualified Code(s): J45.30 - Mild persistent asthma, uncomplicated (10) Dementia Dementia behavioral or psychological symptom: without behavioral, psychotic, or mood disturbance or anxiety Dementia severity: unspecified severity Dementia type: unspecified type Qualified Code(s): F03.90 - Unspecified dementia, unspecified severity, without behavioral disturbance, psychotic disturbance, mood disturbance, and anxiety
[2023-09-06 11:45] LABS: D Dimer 720 ug/L FEU (0-500)
--- NOTE | 2023-09-06 12:41 | Ultrasound Report ---
US venous doppler LE BI CLINICAL HISTORY: LE edema, hx DVT TECHNIQUE: Bilateral lower extremity real-time compression venous ultrasound with Color Doppler imagi ng. Utilizing real-time ultrasonic imaging multiple real time high-resolution ultrasonic images with compression and noncompression maneuvers of the deep venous system in addition to color doppler imagi ng were performed from the common femoral vein through the proximal calf veins. COMPARISON: None available at the time of this dictation. FINDINGS/IMPRESSION: Echogenic stranding is seen in the right femoral vein and greater saphenous vein compatible with nono cclusive thrombus. There is occlusion of the distal right popliteal vein with minimal distal reconsti tution. Evaluation of the right calf is highly limited. No left DVT. ACT 112: Negative or not required by law. Electronically signed by: Alonso Fay M.D. 09/06/2023 12:40 PM
--- NOTE | 2023-09-06 13:17 | Ultrasound Report ---
US liver CLINICAL HISTORY: elevated LFTs COMPARISON STUDY: CT of the abdomen and pelvis August 19, 2023. FINDINGS: This exam is compromised by suboptimal penetration. No biliary ductal dilatation is identif ied. No hepatic lesions are identified. No gallstones are present. Small amount of sludge within the gallbladder is present. No sonographic Victor sign was elicited. There is no evidence for acute armando cystitis. Pancreatic body is unremarkable. Head and tail are obscured. There is no right hydronephros is. IMPRESSION: 1. No gallstones or biliary ductal dilatation. 2. Partially obscured pancreas. ACT 112: Negative or not required by law. Electronically signed by: Boris Keys M.D. 09/06/2023 1:15 PM
[2023-09-06] MEDS ORDERED: ALBUTEROL HFA 8 GM INHALER INH PRN (13:18)
[2023-09-06] MEDS: HEPARIN SOD 5,000 UNIT/0.5 ML VIAL SQ SCH (15:46)
--- NOTE | 2023-09-06 16:33 | Electrocardiogram Report ---
Test Reason : Blood Pressure : / mmHG Vent. Rate : 090 BPM Atrial Rate : 090 BPM P-R Int : 182 ms QRS Dur : 080 ms QT Int : 356 ms P-R-T Axes : 053 021 046 degrees QTc Int : 435 ms Normal sinus rhythm Nonspecific ST and T wave abnormality Abnormal ECG When compared with ECG of 16-MAR-2023 11:08, No significant change was found Confirmed by Dequan Charles ([id number]) on 09/06/2023 4:32:46 PM Referred By: Confirmed By:John Charles
[2023-09-06] MEDS: HYDROCORTISONE 10 MG TAB PO SCH (18:16)
[2023-09-06] MEDS: ACETAMINOPHEN 325 MG TAB PO PRN (20:20)
[2023-09-06] MEDS: CHOLECALCIFEROL 125 MCG (5,000 UNITS) TAB PO SCH (20:21)
[2023-09-06] MEDS: MEMANTINE HCL 10 MG TAB PO SCH (20:21)
[2023-09-06] MEDS: UMECLIDINIUM/VILANTEROL 62.5/25MCG 7 PUFFS/INHALER INH SCH (20:23)
[2023-09-06] MEDS: FLUTICASONE FUROATE 200MCG 14 PUFFS/INHALER INH SCH (20:24)
[2023-09-06] MEDS ORDERED: NON-FORMULARY MEDICATION (Fluticasone-Umeclidin-Vilanter [Trelegy Ellipta] 200-62.5-25 mcg INH SCH (21:00)
[2023-09-07 03:56] LABS: Basophils # (auto) 0.03 K/uL (0.00-0.20); Basophils % (auto) 0.4 %; Eosinophils # (auto) 0.11 K/uL (0.00-0.50); Eosinophils % (auto) 1.6 %; Hematocrit (blood only) 39.9 % (42.0-52.0); Hemoglobin 12.8 g/dl (14.0-18.0); Immature Granulocytes # (auto) 0.01 K/uL (0.01-0.20); Immature Granulocytes % (auto) 0.1 %; Lymphocytes # (auto) 1.31 K/uL (1.20-3.40); Lymphocytes % (auto) 19.3 %; Mean Corpuscular Hemoglobin 28.1 pg (25.0-34.0); Mean Corpuscular Hgb Conc 32.1 g/dL (32.0-36.0); Mean Corpuscular Volume 87.7 fL (80.0-100.0); Mean Platelet Volume 9.1 fL (9.4-12.4); Monocytes # (auto) 0.63 K/uL (0.11-0.59); Monocytes % (auto) 9.3 %; Neutrophils # (auto) 4.69 K/uL (1.40-6.50); Neutrophils % (auto) 69.3 %; Platelet Count 237 K/uL (130-400); RDW Coefficient of Variation 17.1 % (11.5-14.5); RDW Standard Deviation 54.4 fL (36.4-46.3); Red Blood Count 4.55 M/uL (4.70-6.10); White Blood Count 6.78 K/ul (4.8-10.8)
[2023-09-07 04:13] LABS: Albumin Level 3.7 gm/dl (3.4-5.0); BUN Creatinine Ratio 20.9 (10-20); Bilirubin Direct 0.1 mg/dl (0-0.2); Bilirubin,Total 0.6 mg/dl (0.2-1.0); Calcium 8.7 mg/dl (8.6-10.3); Creatinine Clr Calc Pharmacy 60.4 ml/min; Est GFR (African American) 58.8 ml/min; Est GFR (Non-African American) 50.7 ml/min; Potassium 3.6 mmol/L (3.5-5.1); Total Protein 6.4 gm/dl (6.0-8.3)
[2023-09-07] MEDS: DONEPEZIL HCL 10 MG TAB PO SCH (08:05)
[2023-09-07] MEDS: HYDROCORTISONE 10 MG TAB PO SCH (08:05)
[2023-09-07] MEDS: ASCORBIC ACID 500 MG TAB PO SCH (08:05)
[2023-09-07] MEDS: MONTELUKAST SODIUM 10 MG TABLET PO SCH (08:06)
[2023-09-07] MEDS: FERROUS SULFATE 325 MG TAB PO SCH (08:06)
[2023-09-07] MEDS: CEROVITE ADV FORMULA TAB PO SCH (08:06)
[2023-09-07] MEDS ORDERED: FLUTICASONE FUROATE 200MCG 14 PUFFS/INHALER INH SCH (09:00)
[2023-09-07] MEDS ORDERED: UMECLIDINIUM/VILANTEROL 62.5/25MCG 7 PUFFS/INHALER INH SCH (09:00)
[2023-09-07] MEDS ORDERED: HYDROCORTISONE 10 MG TAB PO SCH (09:30)
[2023-09-07] MEDS ORDERED: Heparin IV Adult Wt-Based Low-Dose w/ INITIAL Bolus Protocol IV SCH (12:36)
[2023-09-07] MEDS: HEPARIN SODIUM/DEXTROSE 25,000 UNITS/500 ML BAG IV SCH (13:52)
[2023-09-07] MEDS: HEPARIN SOD (PORCINE) 1000 UNIT/ML IV ONE ×2 (13:52→21:42)
[2023-09-07] MEDS: predniSONE 50 MG TAB PO SCH (13:55)
[2023-09-07 14:18] LABS: Partial Thromboplastin Time 28 Seconds (21-31)
--- NOTE | 2023-09-07 15:05 | Urology Consultation ---
Date of Consultation September 07, 2023 Assessment & Plan (1) Primary bladder malignant neoplasm: Plan 78yo M with a hx of prostate cancer and bladder ca on Keytruda who presented to the ED today with complaints of dyspnea and weakness. Patient admitted to medicine service for evaluation and management of shortness of breath and weakness. Urology consulted due to hx of bladder cancer. Afebrile and hemodynamically stable. Labs today show no leukocytosis, hemoglobin 12.8, and normal renal function. Voiding spontaneously, continue to monitor. Pt denies hematuria, UTI symptoms, or difficulty voiding at present. No plan for urological procedure. We discussed arranging outpatient follow-up and office cystoscopy for continued surveillance after acute issues have resolved. Pt agreeable. Oncology consulted for recommendations on timing of next immunotherapy. Continue supportive care and management per primary team. Urology will sign-off. Please contact us with any further questions or concerns. Plan of care reviewed with Dr. Aguiar. History of Present Illness Attending Physician: Estefany Devlin MD History of Present Illness 78 year old male with a PMHx including bladder cancer on immunotherapy, adrenal insufficiency, asthma, hx DVT/PE s/p IVC filter, dementia, prior prostate cancer, aortic stenosis, CKD3b, HTN who presented to the ED today with complaints of dyspnea and weakness. Patient admitted to medicine service for evaluation and management of shortness of breath and weakness. Urology consulted due to hx of bladder cancer. Well-known to urology service, follows with Dr. Aguiar. Prior office notes reviewed- Prostate cancer treated with radiation therapy in 2016Gleason 4+4 at biopsy Large prostate treated with HoLEP prior to radiation therapyheavily trabeculated bladder with small diverticuli Radiation cystitis and superficial vasculature causing bleeding in August 2022 Lack of improvement despite typical management for radiation cystitis Rescoped the summer 2022 and found to have bladder tumor at the dome of the bladder Underwent TURBT x2 [employer] consultant high and low grade TCC Follows with oncology. Pt examined at bedside in the ED today. Awake, sitting in bedside chair on arrival. No acute distress. Denies any urinary symptoms or issues at presents. Denies hematuria or dysuria. Voiding spontaneously, notes some incontinence. Denies f/c/n/v. Denies any pain or discomfort at present. Pt started Keytruda in July and notes progressive weakness since. Offered no additional questions or concerns at time of visit. Allergies Allergy/AdvReac Type Severity Reaction Status Date / Time Iodinated Contrast Media Allergy Severe LOVERSOL---CARDIAC Verified 06/25/23 09:[address] CONTRAST clindamycin Allergy Unknown Unknown Verified 06/25/23 09:53 chocolate flavor AdvReac Severe Cannot Verified 06/25/23 09:53 take, interacts w/ medications. cranberry AdvReac Severe Cannot Verified 06/25/23 09:53 take, interacts w/ medications. Home Medications Medication Instructions Recorded Confirmed Type cholecalciferol (vitamin D3) 125 125 mcg PO QPM 06/20/20 09/06/23 History mcg (5,000 unit) capsule donepezil 10 mg tablet 10 mg PO QAM 04/13/22 09/06/23 History multivitamin with minerals 1 cap PO DAILY 04/13/22 09/06/23 History ascorbic acid (vitamin C) 1,000 mg 1,000 mg PO QAM 08/27/22 09/06/23 History tablet (Vitamin C) epinephrine 0.3 mg/0.3 mL 0.3 mg IM DIRECTED PRN 11/30/22 09/06/23 History injection, auto-injector anaphylaxis memantine 10 mg tablet 10 mg PO BID 11/30/22 09/06/23 History montelukast 10 mg tablet 10 mg PO DAILY 11/30/22 09/06/23 History albuterol sulfate 90 mcg/actuation 2 puff inhalation Q6H PRN 12/03/22 09/06/23 Rx aerosol inhaler shortness of breath or wheezing #8.5 grams fluticasone fur. 200 mcg-umeclid 1 inh inhalation QPM 12/12/22 09/06/23 History 62.5 mcg-vilant 25 mcg inhalat.powder (Trelegy Ellipta) fluticasone propionate 50 2 spray intranasal DAILY PRN 12/12/22 09/06/23 History mcg/actuation nasal allergies spray,suspension vitamin E 268 mg (400 unit) capsule 268 mg PO DAILY 02/18/23 09/06/23 History hydrocortisone 5 mg tablet See Rx Instructions .Route 03/05/23 09/06/23 Rx .COMPLEX 90 days #450 tabs ferrous sulfate 325 mg (65 mg 325 mg PO DAILY 08/23/23 01/22/24 History iron) tablet,delayed release Patient History Medical History (Updated 09/06/23 @ 13:41 by Maura Carpenter PA-C) History of recent blood transfusion Bladder cancer Weakness Mild cognitive impairment, so stated Anemia (06/25/23)to start receiving iron infusions Radiation cystitis Kidney stones x1 episode. no surgery needed. Hx of prostatic malignancy ~ 2013- s/p Lupron and XRT Bradley's disease follows with Endocrinology [facility] on hydrocortisone Chronic steroid use Sleep apnea Cpap Cardiac arrest hx r/t IV Contrast Dye "many years ago" History of pulmonary embolism hx "many years ago" unknown etiology History of DVT (deep vein thrombosis) hx "many years ago" unknown etiology acute on chronic DVT during 12/2022 [facility] admission- Coumadin d/c'ed due to anemia and hematuria; IVC filter placed 12/28/22 Stage 3 chronic kidney disease Ascending aorta dilation Mild- 4.4cm per 11/2022 ECHO Aortic stenosis Mild per 12/2022 ECHO -follows annually with cardiology Adrenal insufficiency Allergic rhinitis Asthma (10/03/11) well controlled. Benign prostatic hyperplasia Contrast media allergy Venous insufficiency (chronic) (peripheral) Hiatal hernia COPD (chronic obstructive pulmonary disease) well controlled. uses Breo daily with exercise Surgical History S/P IVC filter S/P cataract extraction History of right cataract extraction History of colonoscopy H/O sinus surgery History of appendectomy S/P TURP (status post transurethral resection of prostate) Status post cystoscopy (11/07/13) Family History Father Prostate cancer Brother Prostate cancer Mother Thyroid cancer Cancer Other No family history of adverse response to anesthesia Social History Smoking Status: Never smoker Tobacco Type: Cigarettes Second Hand Exposure: No; Do You Dip or Chew Tobacco: No; Hx Alcohol Use: No Hx Substance Use: No Preferred Language: Sinhala Communication Ability: Effective Visual Impairment: Limited Hearing Ability: Normal 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 Automatic Required: No Beliefs That Will Affect Care: None marital status: Current Living Situation: Spouse Current Living Situation Comment: at home with current occupational status: retired How many Children do You have: 0 Other Information That Helps Us Care for You: No Feels Safe at Home: Yes Safety Concerns: Feels Safe At This Time Diet: regular during the past year weight has: decreased > 10 lbs Seatbelt Use: always Do you think of yourself as: straight/heterosexual Gender Identity: Male Assistive Devices: Walker Review of Systems Review of Systems: All systems reviewed & are unremarkable except as noted in HPI & below Physical Exam Constitutional: no acute distress Neck: normal visual inspection Respiratory: no respiratory distress and no labored breathing Musculoskeletal: Head/Neck/Chest: normocephalic Skin: No visible rashes or lesions to exposed skin areas Neurologic: moves all extremities and awake Psychiatric: A+Ox3, euthymic affect Results & Data Vital Signs (Past 12 Hours) Vital Signs Pulse Pulse Resp BP Pulse Ox O2 Del Method 09/07/23 14:20 78 18 156/88 H 94 Room Air 09/07/23 12:03 78 19 144/98 H 96 Room Air 09/07/23 07:30 74 18 177/97 H 95 Room Air 09/07/23 07:15 79 PG Care Time/CCT Total # of Minutes Spent Total Time Spent with Patient: Total time spent is greater than 50% in coordination of care (as documented) at patient's floor/unit and/or counseling patient: Coding Level of Care Code 29795 INT INP/OBS CARE 40MIN Diagnoses Primary bladder malignant neoplasm C67.9
--- NOTE | 2023-09-07 17:05 | CT Scan Report ---
CT chest diagnostic wo con CLINICAL HISTORY: Pneumonitis/SOB/Ca Bladder TECHNIQUE: Multidetector row helical CT of the chest was performed. Coronal and sagittal reformations were obtained. Automated dose lowering techniques and/or adjustment according to patient size were u tilized for this exam. CT DOSE: 767.44 mGy.cm Comparison: Comparison is made to CT chest 08/19/2023 FINDINGS: Lungs and pleura: Atelectasis versus scarring is seen in the dependent portions of the lungs. Heart and pericardium: There is cardiomegaly without evidence of pericardial effusion. Vessels: The pulmonary trunk is enlarged measuring 34 mm in diameter. Moderate atherosclerotic diseas e is seen. Mediastinum and frances: Unremarkable. Chest wall and lower neck: Unremarkable. Abdomen: A hiatal hernia is seen. Bones: Degenerative changes in the thoracic spine. IMPRESSION: 1. Atelectasis is seen without evidence of pneumonia. 2. Pulmonary hypertension. ACT 112: Negative or not required by law. Electronically signed by: Alonso Fay M.D. 09/07/2023 5:03 PM
--- NOTE | 2023-09-07 19:03 | Hospitalist Progress Note ---
Date of Service September 07, 2023 Assessment & Plan (1) SOB (shortness of breath): Plan: This is a 78 y/o male with bladder cancer, on immunotherapy, adrenal insufficiency, asthma, hx DVT/PE, s/p IVC filter, dementia, prior prostate cancer, aortic stenosis, CKD3b, HTN, and other history as outlined below who presents to the ED today with progressive dyspnea and weakness. These symptoms seem to have been worsening since starting immunotherapy but are particularly worse over the last few days. Work-up in the ED revealed a mildly elevated troponin but no significant EKG changes. He was also noted to have bilateral LE edema - off chronic warfarin due to hematuria and anemia, had IVC filter placed in December 2022. Likely secondary to pulmonary embolism Is prone to developing clot due to bladder cancer on immunotherapy Ultrasound of the legs did not show DVT involving the right lower extremity He is a status post IVC filter in the past and was on Coumadin before which was stopped due to hematuria D-dimer was elevated VQ scan was requested but cannot be done due to nonavailability of the nuclear medicine-which will be not available until second week of September Discussed with Dr. Yusuf -advised to continue heparin intravenously and VQ scan is not absolutely needed to continue heparin given the high suspicion of pulmonary embolism Echo of the heart did not show any right heart strain more any decrease in EF CT of the chest without contrast-remained unremarkable except minimal basilar atelectasis The case discussed in detail with the and explained the need for heparin and subsequently Coumadin on discharge The risk and benefit of heparin administration discussed in detail Case discussed with Dr. Yusuf and she will see the patient during this hospitalization Carcinoma of the bladder Has been on immunotherapy Urology has been consulted-appreciate input and recommendation Further immunotherapy as per oncologist History of aortic stenosis Echo of the heart did show aortic sclerosis no significant stenosis EF remained normal Patient remained asymptomatic Adrenal insufficiency Has been on steroid replacement therapy at home Discussed with Dr. Yusuf Prednisone will be given 100 mg daily and the duration will be determined by Dr. Yusuf Oral hydrocortisone is on hold High blood pressure Will add small dose of Norvasc's (2) Weakness: Plan: Suspect component of deconditioning - PT/OT evaluations - Case management consult for possible short-term rehab, assistance arranging home services (3) Fall: Plan: See plan for #2 Fall precautions (4) Elevated liver function tests: Plan: New from last labs - AST 13, ALT 17 in January 2023 - Check RUQ ultrasound-no gallstones - Recheck in AM (5) Elevated troponin: Plan: No chest pain, no EKG changes. 39.8 --> 34.2 ECHO pending-as above Monitor on telemetry (6) Primary bladder malignant neoplasm: Plan: Scheduled for immunotherapy tomorrow - pt's will notify oncologist that pt is currently admitted. Will need to f/u with onc tomorrow to determine timing of next immunotherapy pending current work-up (7) Asthma: Plan: Chronic - continue outpatient inhalers May be contributing shortness of breath (8) Obstructive sleep apnea: Plan: Pt used CPAP previously but not using presently - needs outpatient sleep medicine f/u May be contributing shortness of breath (9) Adrenal insufficiency: Plan: Chronic, stable Continue current outpatient hydrocortisone dosing (10) Dementia: Plan: Chronic, stable - Continue donepezil, memantine Plan Pt seen and evaluated with collaborating physician, Dr. Christian. Plan of care discussed and as outlined above. Code Status: Full code DVT Prophylaxis: Has been on intravenous heparin now Case discussed with the in detail All of her questions were answered Admission and Anticipated Discharge Date Admission Date: September 06, 2023 Subjective 09/07/2023 The patient was seen and examined in emergency room He was admitted with progressive shortness of breath and weakness following immunotherapy for bladder cancer He has been feeling a little better during my examination in the emergency room Denies any chest pain and/or palpitation Review of Systems Review of Systems: All systems reviewed and are unremarkable except as noted below Physical Exam Physical Exam: Lying in bed comfortably Constitutional: well developed, well nourished, + ill appearing and + obese Eyes: PERRL, conjunctivae normal, anicteric sclerae ENMT: external ear and nose normal, oropharynx normal Neck: trachea midline, no thyromegaly Respiratory: + respiratory distress (Mild to moderate respiratory distress at rest) Auscultation: lungs clear to auscultation bilaterally and + crackles (Very minimal crackles at the bases) Cardiovascular: Rate/Rhythm: regular rate and regular rhythm; not tachycardic Heart Sounds: normal S1, normal S2 and + murmur (2/6 ESM over precordium) Extremities: + edema (Trace edema bilaterally more on the right than the left) Gastrointestinal (Abdomen): Inspection/Auscultation: normal bowel sounds; abdomen not distended Percussion/Palpation: abdomen soft; abdomen nontender Musculoskeletal: No acute arthritis involving any of the joint Neurologic: normal touch/pain/proprioception and moves all extremities; no focal motor deficits Psychiatric: A+Ox3, euthymic affect Lymphatic: no cervical or axillary lymphadenopathy Results & Data Results & Data Vital Signs (Past 12 Hours) Vital Signs Temp Pulse Pulse Resp BP Pulse Ox O2 Del Method 09/07/23 16:23 36.4 C L 74 19 187/95 H 97 Room Air 09/07/23 15:57 Room Air 09/07/23 14:20 78 18 156/88 H 94 Room Air 09/07/23 12:03 78 19 144/98 H 96 Room Air 09/07/23 07:30 74 18 177/97 H 95 Room Air 09/07/23 07:15 79 Laboratory Results Short CBC 09/07/23 Range/Units 03:19 WBC 6.78 (4.8-10.8) K/ul Hgb 12.8 L (14.0-18.0) g/dl Hct 39.9 L (42.0-52.0) % Plt Count 237 (130-400) K/uL BMP 09/07/23 03:19 Sodium 141 Potassium 3.6 Chloride 106 Carbon Dioxide 28 BUN 28 H Creatinine 1.34 Glucose 104 H Calcium 8.7 Liver Function 09/07/23 Range/Units 03:19 Total Bilirubin 0.6 (0.2-1.0) mg/dl Direct Bilirubin 0.1 (0-0.2) mg/dl AST 88 H (13-39) U/L ALT 105 H (7-52) U/L Alkaline Phosphatase 72 (34-104) U/L Albumin 3.7 (3.4-5.0) gm/dl Medications Administered Current Inpatient Medications Acetaminophen (Acetaminophen 325 Mg Tab) 650 mg PO Q4H PRN PRN Reason: Pain or Fever Stop: 10/06/23 13:17 Last Admin: 09/06/23 20:20 Dose: 650 mg Albuterol (Albuterol Hfa 8 Gm Inhaler) 2 puffs INH Q6H PRN PRN Reason: shortness of breath or wheezing Stop: 10/06/23 13:17 Ascorbic Acid (Ascorbic Acid 500 Mg Tab) 1,000 mg PO QAM [facility] Stop: 10/07/23 08:59 Last Admin: 09/07/23 08:05 Dose: 1,000 mg Donepezil HCl (Donepezil Hcl 10 Mg Tab) 10 mg PO QAM [facility] Stop: 10/07/23 08:59 Last Admin: 09/07/23 08:05 Dose: 10 mg Ferrous Sulfate (Ferrous Sulfate 325 Mg Tab) 325 mg PO DAILY [facility] Stop: 10/07/23 08:59 Last Admin: 09/07/23 08:06 Dose: 325 mg Fluticasone Furoate (Fluticasone Furoate 200mcg 14 Puffs/Inhaler) 1 puffs INH PM [facility] Stop: 10/06/23 20:59 Last Admin: 09/06/23 20:24 Dose: Not Given Hydrocortisone (Hydrocortisone 10 Mg Tab) 20 mg PO 0930 [facility] Stop: 10/07/23 09:29 Last Admin: 09/07/23 08:05 Dose: 20 mg Hydrocortisone (Hydrocortisone 10 Mg Tab) 10 mg PO 1730 [facility] Stop: 10/06/23 17:29 Last Admin: 09/06/23 18:16 Dose: 10 mg Heparin Sodium/Dextrose (Heparin Sodium/Dextrose) 25,000 units in 500 mls @ 20 mls/hr IV .Q24H [facility]; Protocol Stop: 10/07/23 12:59 Last Titration: 09/07/23 16:43 Dose: 1,000 units/hr, 20 mls/hr Melatonin (Melatonin 3 Mg Tab) 3 mg PO HS PRN PRN Reason: Sleep Stop: 10/07/23 00:04 Memantine (Memantine Hcl 10 Mg Tab) 10 mg PO BID [facility] Stop: 10/06/23 20:59 Last Admin: 09/07/23 08:06 Dose: 10 mg Montelukast Sodium (Montelukast Sodium 10 Mg Tablet) 10 mg PO DAILY [facility] Stop: 10/07/23 08:59 Last Admin: 09/07/23 08:06 Dose: 10 mg Multivitamins/Minerals (Cerovite Adv Formula Tab) 1 tab PO DAILY [facility] Stop: 10/07/23 08:59 Last Admin: 09/07/23 08:06 Dose: 1 tab Prednisone (Prednisone 50 Mg Tab) 100 mg PO DAILY [facility] Stop: 10/07/23 12:44 Last Admin: 09/07/23 13:55 Dose: 100 mg Umeclidinium/Vilanterol (Umeclidinium/Vilanterol 62.5/25mcg 7 Puffs/Inhaler) 1 puffs INH PM [facility] Stop: 10/06/23 20:59 Last Admin: 09/06/23 20:23 Dose: Not Given Vitamin D (Cholecalciferol 5,000 Units 125 Mcg Tab) 5,000 units PO QPM [facility] Stop: 10/06/23 20:59 Last Admin: 09/06/23 20:21 Dose: 5,000 units (3) Fall Encounter type: initial encounter Qualified Code(s): W19.XXXA - Unspecified fall, initial encounter (7) Asthma Asthma severity: mild Asthma persistence: persistent Asthma complication type: uncomplicated Qualified Code(s): J45.30 - Mild persistent asthma, uncomplicated (10) Dementia Dementia type: unspecified type Dementia severity: unspecified severity Dementia behavioral or psychological symptom: without behavioral, psychotic, or mood disturbance or anxiety Qualified Code(s): F03.90 - Unspecified dementia, unspecified severity, without behavioral disturbance, psychotic disturbance, mood disturbance, and anxiety
[2023-09-07] MEDS: amLODIPine BESYLATE 5 MG TAB PO SCH (20:20)
[2023-09-07 21:20] LABS: ANTI-Xa, UFH(UnfractionatedHep 0.16 IU/ml (0.3-0.7)
[2023-09-08 08:17] LABS: Hematocrit (blood only) 40.6 % (42.0-52.0); Immature Granulocytes # (auto) 0.15 K/uL (0.01-0.20); Immature Granulocytes % (auto) 1.4 %; Lymphocytes % (auto) 9.3 %; Mean Corpuscular Hemoglobin 28.1 pg (25.0-34.0); Mean Corpuscular Volume 87.9 fL (80.0-100.0); Mean Platelet Volume 9.4 fL (9.4-12.4); Monocytes # (auto) 0.64 K/uL (0.11-0.59); Monocytes % (auto) 5.9 %; Neutrophils # (auto) 8.97 K/uL (1.40-6.50); Neutrophils % (auto) 83.4 %; Platelet Count 248 K/uL (130-400); RDW Coefficient of Variation 16.8 % (11.5-14.5); RDW Standard Deviation 53.3 fL (36.4-46.3); Red Blood Count 4.62 M/uL (4.70-6.10); White Blood Count 10.76 K/ul (4.8-10.8)
--- NOTE | 2023-09-08 08:22 | Oncology Consultation ---
Date of Consultation September 08, 2023 Assessment & Plan (1) Primary bladder malignant neoplasm: (2) Weakness: (3) Elevated liver function tests: (4) DVT (deep venous thrombosis): Plan - Presented with weakness which I suspect may be related to immunotherapy given history of adrenal insufficiency. Recommend prednisone 1 mg/kg/day. Consider endocrinology evaluation. Mild transaminitis also possibly due to immunotherapy. Will need optimization of steroids for adrenal insufficiency as recommended by endocrinology prior to restarting pembrolizumab. If restarting pembrolizumab is not an option, would have to discuss with urology regarding other options for nonmuscle invasive bladder cancer including cystectomy or Adstiladrin -Regarding shortness of breath he could have PE especially given recent diagnosis of lower extremity DVT, unfortunately cannot have CTA chest due to severe contrast allergy. Regardless, he will need to continue with anticoagulation. Would recommend discharging on DOAC such as Eliquis Thank you for this consult. Oncology will follow patient peripherally while in the hospital. Please feel free to call if you have any further questions History of Present Illness Reason for Consultation: Bladder cancer Attending Physician: Matt Gongora MD History of Present Illness 78-year-old gentleman with unresectable nonmuscle invasive papillary bladder cancer for which he was started on pembrolizumab 200 mg IV every 3 weeks on 07/26/2023. He presented to the ER at [facility] with shortness of breath, fatigue. Labs obtained on admission revealed transaminitis with AST of 106, ALT of 119. Bilateral lower extremity ultrasound revealed left lower extremity DVT. CT chest revealed atelectasis without evidence of pneumonia. Cannot have CTA chest to evaluate for PE due to severe contrast allergy. He was started on therapeutic unfractionated heparin for DVT. Allergies Allergy/AdvReac Type Severity Reaction Status Date / Time Iodinated Contrast Media Allergy Severe LOVERSOL---CARDIAC Verified 06/25/23 09:[address] CONTRAST clindamycin Allergy Unknown Unknown Verified 06/25/23 09:53 chocolate flavor AdvReac Severe Cannot Verified 06/25/23 09:53 take, interacts w/ medications. cranberry AdvReac Severe Cannot Verified 06/25/23 09:53 take, interacts w/ medications. Home Medications Medication Instructions Recorded Confirmed Type cholecalciferol (vitamin D3) 125 125 mcg PO QPM 06/20/20 09/06/23 History mcg (5,000 unit) capsule donepezil 10 mg tablet 10 mg PO QAM 04/13/22 09/06/23 History multivitamin with minerals 1 cap PO DAILY 04/13/22 09/06/23 History ascorbic acid (vitamin C) 1,000 mg 1,000 mg PO QAM 08/27/22 09/06/23 History tablet (Vitamin C) epinephrine 0.3 mg/0.3 mL 0.3 mg IM DIRECTED PRN 11/30/22 09/06/23 History injection, auto-injector anaphylaxis memantine 10 mg tablet 10 mg PO BID 11/30/22 09/06/23 History montelukast 10 mg tablet 10 mg PO DAILY 11/30/22 09/06/23 History albuterol sulfate 90 mcg/actuation 2 puff inhalation Q6H PRN 12/03/22 09/06/23 Rx aerosol inhaler shortness of breath or wheezing #8.5 grams fluticasone fur. 200 mcg-umeclid 1 inh inhalation QPM 12/12/22 09/06/23 History 62.5 mcg-vilant 25 mcg inhalat.powder (Trelegy Ellipta) fluticasone propionate 50 2 spray intranasal DAILY PRN 12/12/22 09/06/23 History mcg/actuation nasal allergies spray,suspension vitamin E 268 mg (400 unit) capsule 268 mg PO DAILY 02/18/23 09/06/23 History hydrocortisone 5 mg tablet See Rx Instructions .Route 03/05/23 09/06/23 Rx .COMPLEX 90 days #450 tabs ferrous sulfate 325 mg (65 mg 325 mg PO DAILY 04/07/23 09/06/23 History iron) tablet,delayed release Patient History Medical History (Updated 09/06/23 @ 13:41 by Maura Carpenter PA-C) History of recent blood transfusion Bladder cancer Weakness Mild cognitive impairment, so stated Anemia (06/25/23)to start receiving iron infusions Radiation cystitis Kidney stones x1 episode. no surgery needed. Hx of prostatic malignancy ~ 2013- s/p Lupron and XRT Bradley's disease follows with Endocrinology [facility] on hydrocortisone Chronic steroid use Sleep apnea Cpap Cardiac arrest hx r/t IV Contrast Dye "many years ago" History of pulmonary embolism hx "many years ago" unknown etiology History of DVT (deep vein thrombosis) hx "many years ago" unknown etiology acute on chronic DVT during 12/2022 [facility] admission- Coumadin d/c'ed due to anemia and hematuria; IVC filter placed 12/28/22 Stage 3 chronic kidney disease Ascending aorta dilation Mild- 4.4cm per 11/2022 ECHO Aortic stenosis Mild per 12/2022 ECHO -follows annually with cardiology Adrenal insufficiency Allergic rhinitis Asthma (10/03/11) well controlled. Benign prostatic hyperplasia Contrast media allergy Venous insufficiency (chronic) (peripheral) Hiatal hernia COPD (chronic obstructive pulmonary disease) well controlled. uses Breo daily with exercise Surgical History S/P IVC filter S/P cataract extraction History of right cataract extraction History of colonoscopy H/O sinus surgery History of appendectomy S/P TURP (status post transurethral resection of prostate) Status post cystoscopy (11/07/13) Family History Father Prostate cancer Brother Prostate cancer Mother Thyroid cancer Cancer Other No family history of adverse response to anesthesia Social History Smoking Status: Never smoker Tobacco Type: Cigarettes Second Hand Exposure: No; Do You Dip or Chew Tobacco: No; Hx Alcohol Use: No Hx Substance Use: No Preferred Language: Samoan Communication Ability: Effective Visual Impairment: Limited Hearing Ability: Normal Enterprise Security Architect Required: No Beliefs That Will Affect Care: None marital status: Current Living Situation: Spouse Current Living Situation Comment: at home with current occupational status: retired How many Children do You have: 0 Other Information That Helps Us Care for You: No Feels Safe at Home: Yes Safety Concerns: Feels Safe At This Time Diet: regular during the past year weight has: decreased > 10 lbs Seatbelt Use: always Do you think of yourself as: straight/heterosexual Gender Identity: Male Assistive Devices: Walker Results & Data Vital Signs (Past 12 Hours) Vital Signs Temp Pulse Pulse Pulse Resp BP Pulse Ox 09/08/23 08:11 36.2 C L 78 16 134/87 96 09/08/23 07:47 76 09/08/23 04:50 86 09/08/23 04:26 36.8 C 96 H 20 168/76 H 97 09/08/23 00:43 36.7 C 90 20 170/89 H 90 09/07/23 23:52 O2 Del Method 09/08/23 08:11 Room Air 09/08/23 07:47 09/08/23 04:50 09/08/23 04:26 Room Air 09/08/23 00:43 Room Air 09/07/23 23:52 Room Air
[2023-09-08 08:54] LABS: Calcium 9.1 mg/dl (8.6-10.3); Magnesium 2.1 mg/dl (1.7-2.4); Potassium 4.3 mmol/L (3.5-5.1)
[2023-09-08 08:59] LABS: BUN Creatinine Ratio 19.7 (10-20); Creatinine Clr Calc Pharmacy 69.2 ml/min; Est GFR (African American) 69.3 ml/min; Est GFR (Non-African American) 59.8 ml/min; Phosphorus 3.7 mg/dl (2.5-4.9)
[2023-09-08 13:38] LABS: Bacteria Urine 4+ (Negative); Epithelial Cell Urine 0-5 /lpf (0-5); Triple Phosphate Crystal Urine Present (None Prsent); WBC Urine >30 /hpf (0-5)
--- NOTE | 2023-09-08 15:20 | Hospitalist Progress Note ---
Date of Service September 08, 2023 Assessment & Plan (1) SOB (shortness of breath): Plan: Patient is a 78 yr male with bladder cancer, on immunotherapy, adrenal insufficiency, asthma, H/O DVT/PE, s/p IVC filter, dementia, prior prostate cancer, aortic stenosis, CKD3b, HTN, and other history as outlined below who presents to the ED today with progressive dyspnea and weakness. These symptoms seem to have been worsening since starting immunotherapy but are particularly worse over the last few days. Work-up in the ED revealed a mildly elevated troponin but no significant EKG changes. He was also noted to have bilateral LE edema - off chronic warfarin due to hematuria and anemia, had IVC filter placed in December 2022. Generalized weakness and shortness of breath Likely related to immunotherapy, adrenal insufficiency Right lower extremity DVT--POA Cannot rule out PE H/O ANDRZEJ, Asthma H/O DCT/PE S/P IVC filter Transaminitis likely related to immunotherapy --CT Chest:Atelectasis is seen without evidence of pneumonia. Pulmonary hypertension. --Venous Doppler:Echogenic stranding is seen in the right femoral vein and greater saphenous vein compatible with nonocclusive thrombus. There is occlusion of the distal right popliteal vein with minimal distal reconstitution. Evaluation of the right calf is highly limited. No left DVT. --ECHO: EF 60 to 65%. Aortic valve appears mildly calcified. Mild to moderate aortic valve stenosis. Compared to prior imaging from 01/06/2023, no significant change. --Could not obtain CTA due to contrast allergy. Currently VQ scan not available. Continue IV heparin. Transition to [facility] as able Appreciate hematology oncology input Saturating well on room air Continue PT OT: Recommends rehab placement Continue prednisone 1 mg/kg/day Will discuss with endocrinology for further recommendations on steroid management Monitor for any bleeding issues Discussed in detail with patient's on 09/08/2023: Understands and agrees with current management Carcinoma of the bladder/Prostate Has been on immunotherapy Urology consulted-appreciate input and recommendation Further immunotherapy as per oncologist H/O Aortic stenosis Pulmonary hypertension Echo unchanged from prior Follow-up as outpatient Adrenal insufficiency Has been on steroid replacement therapy at home Prior hospitalist discussed with Continue Prednisone 100 mg daily Home hydrocortisone on hold HTN Likely due to steroids Added amlodipine 5 mg daily Monitor BP Transient confusion Likely delirium in setting of dementia Continue home medications Reorient frequently Avoid sedative medications as able Will consider CT head if recurrent confusion (2) Weakness: Plan: Management as above (3) Fall: Plan: Fall precautions (4) Elevated liver function tests: Plan: Likely due to immunotherapy Liver ultrasound:No gallstones or biliary ductal dilatation. Partially obscured pancreas. Trended down (5) Elevated troponin: Plan: Trended down Echo showed no wall motion abnormality Denies any chest pain (6) Primary bladder malignant neoplasm: Plan: Needs follow-up with oncology as outpatient (7) Asthma: Plan: Chronic - continue outpatient inhalers Currently no signs of exacerbation (8) Obstructive sleep apnea: Plan: Pt used CPAP previously but not using presently - needs outpatient sleep medicine f/u (9) Adrenal insufficiency: Plan: Management as above (10) Dementia: Plan: Chronic, stable - Continue donepezil, memantine Plan DVT Px: IV Heparin Code Status: Full code Admission and Anticipated Discharge Date Admission Date: September 06, 2023 Subjective Patient is seen and examined at bedside Was transiently confused overnight Confusion resolved this morning Discussed in detail with patient's family over the phone Patient denies any chest pain, dyspnea, dizziness, nausea, vomiting, abdominal pain Currently on IV heparin No obvious bleeding issues Saturating well on room air Has generalized weakness per family Review of Systems Review of Systems: All systems reviewed & are unremarkable except as noted in Subjective Physical Exam Physical Exam: Physical Exam: Vitals signs as noted above General Appearance:Moderately built and nourished, no apparent distress Head: normocephalic, Atraumatic Eyes: normal inspection, EOMI Neck: supple, Trachea midline Respiratory/Chest: Normal breath sounds, CTA, No accessory muscle use Cardiovascular: S1, S2, + murmur Abdomen/GI:Soft, Non tender, Bowel sounds present Extremities/Musculoskeletal:normal inspection, RLE edema Neurologic/Psych:AAO, grossly no focal neurological deficits Skin: normal color, warm Results & Data Results & Data Vital Signs (Past 12 Hours) Vital Signs Temp Pulse Pulse Pulse Resp BP Pulse Ox 09/08/23 15:09 36.3 C L 78 16 122/70 93 09/08/23 11:44 09/08/23 11:43 36.4 C L 73 16 153/80 H 94 09/08/23 08:11 36.2 C L 78 16 134/87 96 09/08/23 07:47 76 09/08/23 04:50 86 09/08/23 04:26 36.8 C 96 H 20 168/76 H 97 O2 Del Method 09/08/23 15:09 Room Air 09/08/23 11:44 Room Air 09/08/23 11:43 Room Air 09/08/23 08:11 Room Air 09/08/23 07:47 09/08/23 04:50 09/08/23 04:26 Room Air Laboratory Results Short CBC 09/08/23 Range/Units 07:38 WBC 10.76 (4.8-10.8) K/ul Hgb 13.0 L (14.0-18.0) g/dl Hct 40.6 L (42.0-52.0) % Plt Count 248 (130-400) K/uL BMP 09/08/23 07:38 Sodium 140 Potassium 4.3 Chloride 106 Carbon Dioxide 27 BUN 23 Creatinine 1.17 Glucose 113 H Calcium 9.1 Urine 09/08/23 Range/Units 12:00 Urine Color Cancelled Urine Appearance Cancelled Urine pH Cancelled Ur Specific [place] Cancelled Urine Protein Cancelled Urine Glucose (UA) Cancelled (3) Fall Encounter type: initial encounter Qualified Code(s): W19.XXXA - Unspecified fall, initial encounter (7) Asthma Asthma severity: mild Asthma persistence: persistent Asthma complication type: uncomplicated Qualified Code(s): J45.30 - Mild persistent asthma, uncomplicated (10) Dementia Dementia type: unspecified type Dementia severity: unspecified severity Dementia behavioral or psychological symptom: without behavioral, psychotic, or mood disturbance or anxiety Qualified Code(s): F03.90 - Unspecified dementia, unspecified severity, without behavioral disturbance, psychotic disturbance, mood disturbance, and anxiety
--- NOTE | 2023-09-08 18:18 | Communication Note ---
Date of Service: September 08, 2023 Discussed with endocrinology . Cannot completely rule out adrenal insufficiency. Defers steroid management to heme oncology. Currently on prednisone 100 mg daily. If steroid therapy primarily being used for management of adrenal insufficiency, then endocrinology recommends to increase his home hydrocortisone to 40 mg every morning, 20 mg every afternoon (Double his home dose). Patient has follow-up appointment with endocrinology on Sep 16. Further steroid management will be determined at the time. Appreciate endocrinology recommendations.
[2023-09-09] MEDS: amLODIPine BESYLATE 5 MG TAB PO SCH (03:46)
[2023-09-09 06:51] LABS: Hematocrit (blood only) 40.2 % (42.0-52.0); Hemoglobin 12.8 g/dl (14.0-18.0); Mean Corpuscular Hgb Conc 31.8 g/dL (32.0-36.0); Mean Platelet Volume 9.2 fL (9.4-12.4); Platelet Count 253 K/uL (130-400); RDW Coefficient of Variation 16.9 % (11.5-14.5); RDW Standard Deviation 53.6 fL (36.4-46.3); Red Blood Count 4.57 M/uL (4.70-6.10); White Blood Count 12.29 K/ul (4.8-10.8)
[2023-09-09 07:08] LABS: BUN Creatinine Ratio 25.9 (10-20); Creatinine Clr Calc Pharmacy 68.7 ml/min; Est GFR (Non-African American) 60.4 ml/min; Potassium 3.9 mmol/L (3.5-5.1)
[2023-09-09 07:16] LABS: ANTI-Xa, UFH(UnfractionatedHep 0.19 IU/ml (0.3-0.7)
[2023-09-09] MEDS: HEPARIN SOD (PORCINE) 1000 UNIT/ML IV ONE (08:49)
[2023-09-09] MEDS ORDERED: cefTRIAXone SODIUM 1,000 MG in DEXTROSE 5 % MINI-B 50 ML IV SCH (09:15)
[2023-09-09] MEDS: APIXABAN 5 MG TABLET PO SCH (10:48)
[2023-09-09] MEDS: ENOXAPARIN 100 MG/1ML SYR SQ SCH (10:57)
[2023-09-09] MEDS: cefTRIAXone SODIUM 2,000 MG in DEXTROSE 5 % MINI-B 50 ML IV SCH (11:02)
--- NOTE | 2023-09-09 11:07 | Hematology/Oncology Prog Note ---
Date of Service September 09, 2023 Assessment & Plan (1) Primary bladder malignant neoplasm: (2) DVT (deep venous thrombosis): Plan - Per review of endocrinology's notes, hydrocortisone dose can be doubled for possible adrenal insufficiency. Since CT chest did not show any evidence of pembrolizumab induced pneumonitis, can discontinue prednisone and continue with hydrocortisone -Plan to restart pembrolizumab when patient is clinically stable and discharged from hospital Admission and Anticipated Discharge Date Admission Date: September 06, 2023 Subjective No new issues. Remains on prednisone 100 mg p.o. daily. Eliquis was discontinued and switched to Lovenox based on hospitalist discussion with Dr. Wheatley Results & Data Vital Signs (Past 12 Hours) Vital Signs Temp Pulse Pulse Pulse Resp BP BP 09/09/23 08:12 69 09/09/23 07:57 36.4 C L 70 20 161/75 H 09/09/23 02:31 36.4 C L 77 18 180/91 H 182/91 H 09/09/23 02:29 80 09/09/23 02:12 36.4 C L 76 77 18 180/91 H 182/91 H 09/08/23 23:05 36.6 C 80 18 145/79 H Pulse Ox O2 Del Method O2 Flow Rate 09/09/23 08:12 09/09/23 07:57 98 Room Air 09/09/23 02:31 97 Nasal Cannula 2 09/09/23 02:29 09/09/23 02:12 97 Nasal Cannula 2 09/08/23 23:05 96 Nasal Cannula 2
--- NOTE | 2023-09-09 18:53 | Hospitalist Progress Note ---
Date of Service September 09, 2023 Assessment & Plan (1) SOB (shortness of breath): Plan: Patient is a 78 yr male with bladder cancer, on immunotherapy, adrenal insufficiency, asthma, H/O DVT/PE, s/p IVC filter, dementia, prior prostate cancer, aortic stenosis, CKD3b, HTN, and other history as outlined below who presents to the ED today with progressive dyspnea and weakness. These symptoms seem to have been worsening since starting immunotherapy but are particularly worse over the last few days. Work-up in the ED revealed a mildly elevated troponin but no significant EKG changes. He was also noted to have bilateral LE edema - off chronic warfarin due to hematuria and anemia, had IVC filter placed in December 2022. Generalized weakness and shortness of breath Likely related to immunotherapy, adrenal insufficiency Right lower extremity chronic DVT Cannot rule out PE H/O ANDRZEJ, Asthma H/O DVT/PE S/P IVC filter Transaminitis likely related to immunotherapy --CT Chest:Atelectasis is seen without evidence of pneumonia. Pulmonary hypertension. --Venous Doppler:Echogenic stranding is seen in the right femoral vein and greater saphenous vein compatible with nonocclusive thrombus. There is occlusion of the distal right popliteal vein with minimal distal reconstitution. Evaluation of the right calf is highly limited. No left DVT. --ECHO: EF 60 to 65%. Aortic valve appears mildly calcified. Mild to moderate aortic valve stenosis. Compared to prior imaging from 01/06/2023, no significant change. --Could not obtain CTA due to contrast allergy. Currently VQ scan not available. Continue IV heparin. Transitioned to Lovenox SQ Appreciate hematology oncology input Saturating well on room air Continue PT OT: Recommends rehab placement Prednisone 1 mg/kg/day discontinued Appreciate endocrinology input: Increased home Hydrocortisone to 40mg AM and 20mg QPM Monitor for any bleeding issues Discussed in detail with patient's on 09/08/2023 and 09/09/23: Understands and agrees with current management May benefit from getting VQ scan as outpatient Carcinoma of the bladder/Prostate H/O recurrent bleeding issues: Hematuria in the past Has been on immunotherapy Urology consulted-appreciate input and recommendation Further immunotherapy as per oncologist H/O Aortic stenosis Pulmonary hypertension Echo unchanged from prior Follow-up as outpatient Adrenal insufficiency Continue hydrocortisone as above Needs follow-up with endocrinology as outpatient HTN Likely due to steroids Added amlodipine 5 mg daily Monitor BP Transient confusion Likely delirium in setting of dementia Continue home medications Reorient frequently Avoid sedative medications as able Will consider CT head if recurrent confusion Mental status back to baseline (2) Weakness: Plan: Management as above (3) Fall: Plan: Fall precautions (4) Elevated liver function tests: Plan: Likely due to immunotherapy Liver ultrasound:No gallstones or biliary ductal dilatation. Partially obscured pancreas. Trended down (5) Elevated troponin: Plan: Trended down Echo showed no wall motion abnormality Denies any chest pain (6) Primary bladder malignant neoplasm: Plan: Needs follow-up with oncology as outpatient (7) Asthma: Plan: Chronic - continue outpatient inhalers Currently no signs of exacerbation (8) Obstructive sleep apnea: Plan: Pt used CPAP previously but not using presently - needs outpatient sleep medicine f/u (9) Adrenal insufficiency: Plan: Management as above (10) Dementia: Plan: Chronic, stable - Continue donepezil, memantine Plan DVT Px: Lovenox SQ Code Status: Full code Admission and Anticipated Discharge Date Admission Date: September 06, 2023 Subjective Patient is seen and examined at bedside Dyspnea better today Reports minimal cough Denies any bleeding issues Discussed with patient's family at bedside Also discussed with oncology today Denies any chest pain, dizziness, nausea, vomiting, abdominal pain Saturating well on room air Review of Systems Review of Systems: All systems reviewed & are unremarkable except as noted in Subjective Physical Exam Physical Exam: Physical Exam: Vitals signs as noted above General Appearance:Moderately built and nourished, no apparent distress Head: normocephalic, Atraumatic Eyes: normal inspection, EOMI Neck: supple, Trachea midline Respiratory/Chest: Normal breath sounds, CTA, No accessory muscle use Cardiovascular: S1, S2, + murmur Abdomen/GI:Soft, Non tender, Bowel sounds present Extremities/Musculoskeletal:normal inspection, RLE edema Neurologic/Psych:AAO, grossly no focal neurological deficits Skin: normal color, warm Results & Data Results & Data Vital Signs (Past 12 Hours) Vital Signs Temp Pulse Pulse Resp BP Pulse Ox O2 Del Method 09/09/23 17:40 96 Room Air 09/09/23 15:43 94 H 09/09/23 15:00 36.7 C 90 20 130/75 94 Nasal Cannula 09/09/23 11:43 36.3 C L 74 20 145/77 H 98 Room Air 09/09/23 08:12 69 09/09/23 08:00 Nasal Cannula 09/09/23 07:57 36.4 C L 70 20 161/75 H 98 Room Air O2 Flow Rate 09/09/23 17:40 09/09/23 15:43 09/09/23 15:00 2 09/09/23 11:43 09/09/23 08:12 09/09/23 08:00 2 09/09/23 07:57 Laboratory Results Short CBC 09/09/23 Range/Units 06:25 WBC 12.29 H (4.8-10.8) K/ul Hgb 12.8 L (14.0-18.0) g/dl Hct 40.2 L (42.0-52.0) % Plt Count 253 (130-400) K/uL BMP 09/09/23 06:25 Sodium 139 Potassium 3.9 Chloride 105 Carbon Dioxide 28 BUN 30 H Creatinine 1.16 Glucose 112 H Calcium 9.0 (3) Fall Encounter type: initial encounter Qualified Code(s): W19.XXXA - Unspecified fall, initial encounter (7) Asthma Asthma severity: mild Asthma persistence: persistent Asthma complication type: uncomplicated Qualified Code(s): J45.30 - Mild persistent asthma, uncomplicated (10) Dementia Dementia type: unspecified type Dementia severity: unspecified severity Dementia behavioral or psychological symptom: without behavioral, psychotic, or mood disturbance or anxiety Qualified Code(s): F03.90 - Unspecified dementia, unspecified severity, without behavioral disturbance, psychotic disturbance, mood disturbance, and anxiety
--- NOTE | 2023-09-09 20:40 | CT Scan Report ---
Exam(s): CT ABDOMEN + PELVIS Without Contrast EXAM: CT Abdomen and Pelvis Without Intravenous Contrast CLINICAL HISTORY: Reason for exam: IVC Filter position, H/O fall. TECHNIQUE: Axial computed tomography images of the abdomen and pelvis without intravenous contrast. CTDI is 27.67 mGy and DLP is 1592.79 mGy-cm. Automated exposure control was utilized for the study. A dose lowering technique was utilized adhering to the principles of ALARA. COMPARISON: No relevant prior studies available. FINDINGS: Lung bases: There is a small amount of atelectasis in both lung bases. ABDOMEN: Liver: Unremarkable. Gallbladder and bile ducts: Unremarkable. No calcified stones. No ductal dilation. Pancreas: Unremarkable. No ductal dilation. Spleen: Unremarkable. No splenomegaly. Adrenals: Unremarkable. No mass. Kidneys and ureters: The kidneys appear within normal limits. No hydronephrosis or ureterolithiasis is seen. Stomach and bowel: Unremarkable. No obstruction. No mucosal thickening. PELVIS: Appendix: The appendix is no visible. Bowel loops are nondilated. No acute inflammatory changes are seen involving the bowel. Bladder: Mild wall thickening and slight surrounding inflammation involving the urinary bladder suggesting hypertrophy from chronic bladder outlet obstruction and/or cystitis. 2 diverticula are present measuring up to 2.5 cm. No stones. Reproductive: Unremarkable as visualized. ABDOMEN and PELVIS: Intraperitoneal space: Unremarkable. No free air. No significant fluid collection. Bones/joints: Mild to moderate multilevel degenerative changes throughout the spine. No acute fracture or subluxation is seen. 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 No fracture is seen. Soft tissues: Unremarkable. Vasculature: There is an IVC filter in place located 4 cm inferior to the renal veins and 2.5 cm superior to the iliac vein confluence. The abdominal aorta is mildly calcified but nondilated. Lymph nodes: Unremarkable. No enlarged lymph nodes. IMPRESSION: 1. Mild wall thickening and slight surrounding inflammation involving the urinary bladder suggesting hypertrophy from chronic bladder outlet obstruction and/or cystitis. 2 diverticula are present measuring up to 2. 5 cm. 2. There is an IVC filter in place located 4 cm inferior to the renal veins and 2.5 cm superior to the iliac vein confluence. 3. The kidneys appear within normal limits. No hydronephrosis or ureterolithiasis is seen. 4. The appendix is no visible. Bowel loops are nondilated. No acute inflammatory changes are seen involving the bowel. 5. 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 No fracture is seen. Electronically signed by: Meliton Villanueva MD 09/09/23 20:39 PM
[2023-09-09] MEDS: cloNIDine HCL 0.1 MG TAB PO ONE (22:04)
[2023-09-09] MEDS: MELATONIN 3 MG TAB PO PRN (22:04)
[2023-09-10 06:44] LABS: Hematocrit (blood only) 38.2 % (42.0-52.0); Hemoglobin 12.1 g/dl (14.0-18.0); Mean Corpuscular Hemoglobin 28.2 pg (25.0-34.0); Mean Corpuscular Hgb Conc 31.7 g/dL (32.0-36.0); Mean Platelet Volume 9.2 fL (9.4-12.4); Platelet Count 252 K/uL (130-400); RDW Coefficient of Variation 17.2 % (11.5-14.5); RDW Standard Deviation 55.6 fL (36.4-46.3); Red Blood Count 4.29 M/uL (4.70-6.10)
[2023-09-10 07:25] LABS: BUN Creatinine Ratio 29.7 (10-20); Calcium 8.9 mg/dl (8.6-10.3); Creatinine Clr Calc Pharmacy 68.8 ml/min; Est GFR (African American) 68.6 ml/min; Est GFR (Non-African American) 59.2 ml/min; Potassium 4.2 mmol/L (3.5-5.1)
[2023-09-10] MEDS: HYDROCORTISONE 10 MG TAB PO SCH (10:07)
[2023-09-10] MEDS: CEFDINIR 300 MG CAP PO SCH (12:15)
--- NOTE | 2023-09-10 12:23 | XRay Report ---
XR chest 2V PA/lateral CLINICAL HISTORY: r/t blood clot TECHNIQUE: 2 views of the chest were obtained. Comparison: Comparison is made to chest radiograph 09/06/[address] chest 09/07/2023 FINDINGS: No lines and tubes are seen. Calcified aortic knob is seen. The lungs are clear. No evidence of pleur al effusion or pneumothorax. IMPRESSION: No acute chest disease. ACT 112: Negative or not required by law. Electronically signed by: Alonso Fay M.D. 09/10/2023 12:22 PM
--- NOTE | 2023-09-10 13:40 | Hospitalist Progress Note ---
Date of Service September 10, 2023 Assessment & Plan (1) SOB (shortness of breath): Plan: Patient is a 78 yr male with bladder cancer, on immunotherapy, adrenal insufficiency, asthma, H/O DVT/PE, s/p IVC filter, dementia, prior prostate cancer, aortic stenosis, CKD3b, HTN, and other history as outlined below who presents to the ED today with progressive dyspnea and weakness. These symptoms seem to have been worsening since starting immunotherapy but are particularly worse over the last few days. Work-up in the ED revealed a mildly elevated troponin but no significant EKG changes. He was also noted to have bilateral LE edema - off chronic warfarin due to hematuria and anemia, had IVC filter placed in December 2022. Generalized weakness and shortness of breath Suspected pulmonary embolism Likely related to immunotherapy, adrenal insufficiency Right lower extremity chronic DVT H/O ANDRZEJ, Asthma H/O DVT/PE S/P IVC filter Transaminitis likely related to immunotherapy --CT Chest:Atelectasis is seen without evidence of pneumonia. Pulmonary hype rtension. --Venous Doppler:Echogenic stranding is seen in the right femoral vein and greater saphenous vein compatible with nonocclusive thrombus. There is occlusion of the distal right popliteal vein with minimal distal reconstitution. Evaluation of the right calf is highly limited. No left DVT. --ECHO: EF 60 to 65%. Aortic valve appears mildly calcified. Mild to moderate aortic valve stenosis. Compared to prior imaging from 01/06/2023, no significant change. --Could not obtain CTA due to contrast allergy. Currently VQ scan not available currently at [facility]. Continue IV heparin. Transitioned to Lovenox SQ Appreciate hematology oncology input Saturating well on room air Continue PT OT: Recommends rehab placement Prednisone 1 mg/kg/day discontinued Appreciate endocrinology input: Increased home Hydrocortisone to 40mg AM and 20mg QPM Monitor for any bleeding issues Discussed in detail with patient's on 09/08/2023, 09/09/23 and 09/10/23: Understands and agrees with current management Given high risk for recurrence of PE, patient requires VQ scan to rule out Given significant hematuria in the past requiring discontinuation of Coumadin and placing IVC filter, would benefit from not continuing empiric anticoagulation if VQ scan is negative Given the scenario, patient will be transferred to [facility] for obtaining VQ scan and further management. Dr.Avinash Roper kindly accepted the patient. Carcinoma of the bladder/Prostate H/O recurrent bleeding issues: Hematuria in the past Has been on immunotherapy Urology consulted-appreciate input and recommendation Further immunotherapy as per oncologist H/O Aortic stenosis Pulmonary hypertension Echo unchanged from prior Follow-up as outpatient Adrenal insufficiency Continue hydrocortisone as above Needs follow-up with endocrinology as outpatient HTN Likely due to steroids Added amlodipine 5 mg daily Monitor BP Transient confusion Likely delirium in setting of dementia Continue home medications Reorient frequently Avoid sedative medications as able Will consider CT head if recurrent confusion Mental status back to baseline (2) Weakness: Plan: Management as above (3) Fall: Plan: Fall precautions (4) Elevated liver function tests: Plan: Likely due to immunotherapy Liver ultrasound:No gallstones or biliary ductal dilatation. Partially obscured pancreas. Trended down (5) Elevated troponin: Plan: Trended down Echo showed no wall motion abnormality Denies any chest pain (6) Primary bladder malignant neoplasm: Plan: Needs follow-up with oncology as outpatient (7) Asthma: Plan: Chronic - continue outpatient inhalers Currently no signs of exacerbation (8) Obstructive sleep apnea: Plan: Pt used CPAP previously but not using presently - needs outpatient sleep medicine f/u (9) Adrenal insufficiency: Plan: Management as above (10) Dementia: Plan: Chronic, stable - Continue donepezil, memantine Plan DVT Px: Lovenox SQ Code Status: Full code Admission and Anticipated Discharge Date Admission Date: September 06, 2023 Subjective Patient is seen and examined at bedside Patient had minimal cough with intake of pills this morning Chest x-ray showed no acute findings Sitting in chair during my encounter Updated patient's family over the phone Denies any dyspnea at rest Saturating well on room air Also denies any chest pain, dizziness, nausea, vomiting, abdominal pain Review of Systems Review of Systems: All systems reviewed & are unremarkable except as noted in Subjective Physical Exam Physical Exam: Physical Exam: Vitals signs as noted above General Appearance:Moderately built and nourished, no apparent distress Head: normocephalic, Atraumatic Eyes: normal inspection, EOMI Neck: supple, Trachea midline Respiratory/Chest: Normal breath sounds, CTA, No accessory muscle use Cardiovascular: S1, S2, + murmur Abdomen/GI:Soft, Non tender, Bowel sounds present Extremities/Musculoskeletal:normal inspection, RLE edema Neurologic/Psych:AAO, grossly no focal neurological deficits Skin: normal color, warm Results & Data Results & Data Vital Signs (Past 12 Hours) Vital Signs Temp Pulse Resp BP Pulse Ox O2 Del Method 09/10/23 11:56 36.4 C L 72 18 130/77 94 Room Air 09/10/23 07:25 36.3 C L 75 18 144/78 H 93 Room Air 09/10/23 02:43 36.3 C L 75 16 157/89 H 94 Room Air Laboratory Results Short CBC 09/10/23 Range/Units 05:57 WBC 10.10 (4.8-10.8) K/ul Hgb 12.1 L (14.0-18.0) g/dl Hct 38.2 L (42.0-52.0) % Plt Count 252 (130-400) K/uL BMP 09/10/23 05:57 Sodium 140 Potassium 4.2 Chloride 106 Carbon Dioxide 28 BUN 35 H Creatinine 1.18 Glucose 98 Calcium 8.9 (3) Fall Encounter type: initial encounter Qualified Code(s): W19.XXXA - Unspecified fall, initial encounter (7) Asthma Asthma severity: mild Asthma persistence: persistent Asthma complication type: uncomplicated Qualified Code(s): J45.30 - Mild persistent asthma, uncomplicated (10) Dementia Dementia type: unspecified type Dementia severity: unspecified severity Dementia behavioral or psychological symptom: without behavioral, psychotic, or mood disturbance or anxiety Qualified Code(s): F03.90 - Unspecified dementia, u nspecified severity, without behavioral disturbance, psychotic disturbance, mood disturbance, and anxiety
--- NOTE | 2023-09-10 14:10 | Discharge Summary ---
Date of Service September 10, 2023 Admission HPI Per Admitting Provider This is a 78 y/o male with bladder cancer, on immunotherapy, adrenal insufficiency, asthma, hx DVT/PE, s/p IVC filter, dementia, prior prostate cancer, aortic stenosis, CKD3b, HTN, and other history as outlined below who presents to the ED today with progressive dyspnea and weakness. Pt started Keytruda in July and reports two treatments thus far, with his third scheduled for tomorrow. Since starting immunotherapy, he has noted progressive weakness. He also notes chronic issues with shortness of breath but worsening recently, which he partially attributes to deconditioning. He reports that he had been walking regularly to keep up his strength but not able to walk outside recently due to weather. Initially shortness of breath was mostly with exertion but now SOB with even minimal exertion. He has had a cough for the past few days. Feels like something is stuck in his throat no known episodes of getting food stuck in his throat or aspiration. Cough is minimally productive of yellow phlegm, green at times. Denies chest pain. He had a fall last Wed - landed on hip and buttocks. Has had some neck pain since then. He often gets lightheaded with standing. He has noted loss of appetite and weight loss since being on immunotherapy. His PCP prescribed Remeron last week, which he apparently took once but had side effects so has not taken since. No fevers, chills, N/V, abd pain, blood in stool, wheezing. No recent hematuria in past week. No dysuria. Ongoing issues with urinary incontinence so wears depends. BMs over the last week have not been well formed but denies diarrhea. No change in chronic swelling of RLE. Admission Exam Per Admitting Provider On exam, General: No acute distress Eyes: PERRL, conjunctivae normal, not pale, anicteric sclerae, EOM intact bilaterally ENMT: External ear and nose normal, oropharynx normal Respiratory: Normal respiratory effort, no respiratory distress, lungs clear to auscultation, no crackles and no wheezes Cardiovascular: RRR S1 S2, +murmur Gastrointestinal (Abdomen): Abdomen is not distended, soft, non-tender to palpation, no guarding, no palpable hepatosplenomegaly, normal bowel sounds Musculoskeletal: +Pedal edema (pt reports this is chronic and unchanged), stasis skin changes on left leg Genitourinary:No CVA tenderness Neurologic: Alert and oriented x 3, No focal weakness, sensation grossly intact Psychiatric: Euthymic affect Principal Diagnosis Suspected pulmonary embolism Chronic right lower extremity DVT Adrenal insufficiency Carcinoma of the bladder/prostate on immunotherapy Cough Discharge Data Allergies Allergy/AdvReac Type Severity Reaction Status Date / Time Iodinated Contrast Media Allergy Severe LOVERSOL---CARDIAC Verified 06/25/23 09:[address] CONTRAST clindamycin Allergy Unknown Unknown Verified 06/25/23 09:53 chocolate flavor AdvReac Severe Cannot Verified 06/25/23 09:53 take, interacts w/ medications. cranberry AdvReac Severe Cannot Verified 06/25/23 09:53 take, interacts w/ medications. Consultations 09/06/23 10:18 ED Decision to Admit Stat 09/07/23 12:35 Consult Urology Routine 09/07/23 15:23 Consult Oncology Routine Procedures Performed Laboratory Results WBC 10.10 K/ul (4.8-10.8) 09/10/23 05:57 RBC 4.29 M/uL (4.70-6.10) L 09/10/23 05:57 Hgb 12.1 g/dl (14.0-18.0) L 09/10/23 05:57 Hct 38.2 % (42.0-52.0) L 09/10/23 05:57 MCV 89.0 fL (80.0-100.0) 09/10/23 05:57 MCH 28.2 pg (25.0-34.0) 09/10/23 05:57 MCHC 31.7 g/dL (32.0-36.0) L 09/10/23 05:57 RDW Std Deviation 55.6 fL (36.4-46.3) H 09/10/23 05:57 RDW Coeff of Robert 17.2 % (11.5-14.5) H 09/10/23 05:57 Plt Count 252 K/uL (130-400) 09/10/23 05:57 MPV 9.2 fL (9.4-12.4) L 09/10/23 05:57 Immature Gran % (Auto) 1.4 % 09/08/23 07:38 Neut % (Auto) 83.4 % 09/08/23 07:38 Lymph % (Auto) 9.3 % 09/08/23 07:38 [place]oc[place]ontas % (Auto) 5.9 % 09/08/23 07:38 Eos % (Auto) 0.0 % 09/08/23 07:38 Baso % (Auto) 0.0 % 09/08/23 07:38 Neut # (Auto) 8.97 K/uL (1.40-6.50) H 09/08/23 07:38 Lymph # (Auto) 1.00 K/uL (1.20-3.40) L 09/08/23 07:38 [place]as # (Auto) 0.64 K/uL (0.11-0.59) H 09/08/23 07:38 Eos # (Auto) 0.00 K/uL (0.00-0.50) 09/08/23 07:38 Baso # (Auto) 0.00 K/uL (0.00-0.20) 09/08/23 07:38 Immature Gran # (Auto) 0.15 K/uL (0.01-0.20) 09/08/23 07:38 PT 11.1 Seconds (9.0-12.0) 09/06/23 08:27 INR 1.0 (0.9-1.1) 09/06/23 08:27 APTT 28 Seconds (21-31) 09/07/23 Unknown PTT Ratio 1.0 09/07/23 Unknown D-Dimer 720 ug/L FEU (0-500) H* 09/06/23 08:27 Heparin Anti-Xa, Unfract 0.19 IU/ml (0.3-0.7) L 09/09/23 06:25 Sodium 140 mmol/L (136-145) 09/10/23 05:57 Potassium 4.2 mmol/L (3.5-5.1) 09/10/23 05:57 Chloride 106 mmol/L (98-107) 09/10/23 05:57 Carbon Dioxide 28 mmol/L (21-32) 09/10/23 05:57 Anion Gap 6 (3-11) 09/10/23 05:57 BUN 35 mg/dl (6-23) H 09/10/23 05:57 Creatinine 1.18 mg/dl (0.6-1.4) 09/10/23 05:57 Est Cr Clr Drug Dosing 68.8 ml/min 09/10/23 05:57 Est GFR ( Amer) 68.6 ml/min 09/10/23 05:57 Est GFR (Non-Af Amer) 59.2 ml/min 09/10/23 05:57 BUN/Creatinine Ratio 29.7 (10-20) H 09/10/23 05:57 Glucose 98 mg/dl (70-99(Fasting)) 09/10/23 05:57 Calcium 8.9 mg/dl (8.6-10.3) 09/10/23 05:57 Phosphorus 3.7 mg/dl (2.5-4.9) 09/08/23 07:38 Magnesium 2.0 mg/dl (1.7-2.4) 09/09/23 06:25 Total Bilirubin 0.6 mg/dl (0.2-1.0) 09/07/23 03:19 Direct Bilirubin 0.1 mg/dl (0-0.2) 09/07/23 03:19 AST 88 U/L (13-39) H 09/07/23 03:19 ALT 105 U/L (7-52) H 09/07/23 03:19 Alkaline Phosphatase 72 U/L (34-104) 09/07/23 03:19 Troponin I High Sens 34.2 pg/ml (0-20) H 09/06/23 09:46 B-Natriuretic Peptide 14 pg/ml (0-100) 09/06/23 08:27 Total Protein 6.4 gm/dl (6.0-8.3) 09/07/23 03:19 Albumin 3.7 gm/dl (3.4-5.0) 09/07/23 03:19 Globulin 3.1 gm/dl (2.5-4.0) 09/06/23 08:27 Albumin/Globulin Ratio 1.4 (0.9-2) 09/06/23 08:27 Urine Color Cancelled 09/08/23 12:00 Urine Appearance Cancelled 09/08/23 12:00 Urine pH Cancelled 09/08/23 12:00 Ur Specific Copen Cancelled 09/08/23 12:00 Urine Protein Cancelled 09/08/23 12:00 Urine Glucose (UA) Cancelled 09/08/23 12:00 Urine Ketones Cancelled 09/08/23 12:00 Urine Blood Cancelled 09/08/23 12:00 Urine Nitrite Cancelled 09/08/23 12:00 Urine Bilirubin Cancelled 09/08/23 12:00 Urine Urobilinogen Cancelled 09/08/23 12:00 Ur Leukocyte Esterase Cancelled 09/08/23 12:00 Urine RBC 10-30 /hpf (0-4) H 09/08/23 12:00 Urine WBC >30 /hpf (0-5) H 09/08/23 12:00 Ur Epithelial Cells 0-5 /lpf (0-5) 09/08/23 12:00 Triple Phos Crystals Present (None Prsent) A 09/08/23 12:00 Urine Bacteria 4+ (Negative) H 09/08/23 12:00 Ur Culture Indicated? Cancelled 09/08/23 12:00 Adenovirus (PCR) Not Detected (NotDetected) 09/06/23 08:25 B. pertussis DNA (PCR) Not Detected (NotDetected) 09/06/23 08:25 B.parapertussis DNA PCR Not Detected (NotDetected) 09/06/23 08:25 C. pneumoniae DNA (PCR) Not Detected (NotDetected) 09/06/23 08:25 Coronavirus OC43 (PCR) Not Detected (NotDetected) 09/06/23 08:25 Coronavirus HKU1 (PCR) Not Detected (NotDetected) 09/06/23 08:25 Coronavirus 229E (PCR) Not Detected (NotDetected) 09/06/23 08:25 SARS-CoV-2 (PCR) Not Detected (NotDetected) 09/06/23 08:25 Coronavirus NL63 (PCR) Not Detected (NotDetected) 09/06/23 08:25 Human Metapneumovir PCR Not Detected (NotDetected) 09/06/23 08:25 Influenza Type A (PCR) Not Detected (NotDetected) 09/06/23 08:25 Influenza Type B (PCR) Not Detected (NotDetected) 09/06/23 08:25 M. pneumoniae (PCR) Not Detected (NotDetected) 09/06/23 08:25 Parainfluenza 1 (PCR) Not Detected (NotDetected) 09/06/23 08:25 Parainfluenza 2 (PCR) Not Detected (NotDetected) 09/06/23 08:25 Parainfluenza 3 (PCR) Not Detected (NotDetected) 09/06/23 08:25 Parainfluenza 4 (PCR) Not Detected (NotDetected) 09/06/23 08:25 RSV (PCR) Not Detected (NotDetected) 09/06/23 08:25 Entero/Rhino (PCR) Not Detected (NotDetected) 09/06/23 08:[address] 09/06/23 08:23 CT cervical spine wo con CT DOSE: 1400.4 mGy.cm CLINICAL HISTORY: 78 years-old Male with fall. Acute neck pain status post fall COMPARISON: None TECHNIQUE: Multiple axial CT images of the cervical spine were obtained without contrast. A dose lowering technique was utilized adhering to the principles of ALARA. FINDINGS: Demineralized appearance to the bones. Moderate multilevel and vertebral disc space narrowing, spondylitic spurring and facet arthrosis. T2 vertebral body hemangioma. Moderate mucoperiosteal thickening of the sphenoid sinuses. Mild dextroscoliosis. No acute cervical spine fracture or subluxation identified. The cervical soft tissues appear unremarkable. The visualized lung apices appear clear. IMPRESSION: No acute cervical spine fracture or subluxation identified. ACT 112: Negative or not required by law. The above report was generated using voice recognition software. It may contain grammatical, syntax or spelling errors. Electronically signed by: Chaim Curiel M.D. 09/06/2023 8:[address] 09/06/23 08:23 CT OF THE HEAD WITHOUT CONTRAST CLINICAL HISTORY: Fall. COMPARISON STUDY: MRI of the brain February 02, 2020. Head CT March 03, 2023. TECHNIQUE: Helical axial images of the head were obtained without IV contrast. Automated exposure control was utilized for the study. A dose lowering technique was utilized adhering to the principles of ALARA. FINDINGS: No acute intracranial hemorrhage, midline shift or mass effect is present. The ventricular system is stable. Hypodensities within the bilateral basal ganglia remain unchanged. The appearance of the brain is unchanged. The basal cisterns are patent. No extra-axial collections are present. There are no findings to suggest acute dural sinus thrombosis or acute territorial infarct. There is no acute calvarial fracture. Secretions with air-fluid level within the left maxillary sinus are present. There is a mucous retention cyst within the right maxillary sinus. IMPRESSION: 1. No acute intracranial findings. 2. No calvarial fracture. ACT 112: Negative or not required by law. Electronically signed by: Boris Keys M.D. 09/06/2023 8:55 AM Venous Doppler Study 09/06/23 11:09 US venous doppler LE BI CLINICAL HISTORY: LE edema, hx DVT TECHNIQUE: Bilateral lower extremity real-time compression venous ultrasound with Color Doppler imaging. Utilizing real-time ultrasonic imaging multiple real time high-resolution ultrasonic images with compression and noncompression maneuvers of the deep venous system in addition to color doppler imaging were performed from the common femoral vein through the proximal calf veins. COMPARISON: None available at the time of this dictation. FINDINGS/IMPRESSION: Echogenic stranding is seen in the right femoral vein and greater saphenous vein compatible with nonocclusive thrombus. There is occlusion of the distal right popliteal vein with minimal distal reconstitution. Evaluation of the right calf is highly limited. No left DVT. ACT 112: Negative or not required by law. Electronically signed by: Alonso Fay M.D. 09/06/2023 12:40 PM Liver Ultrasound 09/06/23 11:37 US liver CLINICAL HISTORY: elevated LFTs COMPARISON STUDY: CT of the abdomen and pelvis August 19, 2023. FINDINGS: This exam is compromised by suboptimal penetration. No biliary ductal dilatation is identified. No hepatic lesions are identified. No gallstones are p resent. Small amount of sludge within the gallbladder is present. No sonographic Victor sign was elicited. There is no evidence for acute cholecystitis. Pancreatic body is unremarkable. Head and tail are obscured. There is no right hydronephrosis. IMPRESSION: 1. No gallstones or biliary ductal dilatation. 2. Partially obscured pancreas. ACT 112: Negative or not required by law. Electronically signed by: Boris Keys M.D. 09/06/2023 1:[address] 09/07/23 15:59 CT chest diagnostic wo con CLINICAL HISTORY: Pneumonitis/SOB/Ca Bladder TECHNIQUE: Multidetector row helical CT of the chest was performed. Coronal and sagittal reformations were obtained. Automated dose lowering techniques and/or adjustment according to patient size were utilized for this exam. CT DOSE: 767.44 mGy.cm Comparison: Comparison is made to CT chest 08/19/2023 FINDINGS: Lungs and pleura: Atelectasis versus scarring is seen in the dependent portions of the lungs. Heart and pericardium: There is cardiomegaly without evidence of pericardial effusion. Vessels: The pulmonary trunk is enlarged measuring 34 mm in diameter. Moderate atherosclerotic disease is seen. Mediastinum and frances: Unremarkable. Chest wall and lower neck: Unremarkable. Abdomen: A hiatal hernia is seen. Bones: Degenerative changes in the thoracic spine. IMPRESSION: 1. Atelectasis is seen without evidence of pneumonia. 2. Pulmonary hypertension. ACT 112: Negative or not required by law. Electronically signed by: Alonso Fay M.D. 09/07/2023 5:03 PM Abdomen/Pelvis CT 09/09/23 14:51 Exam(s): CT ABDOMEN + PELVIS Without Contrast EXAM: CT Abdomen and Pelvis Without Intravenous Contrast CLINICAL HISTORY: Reason for exam: IVC Filter position, H/O fall. TECHNIQUE: Axial computed tomography images of the abdomen and pelvis without intravenous contrast. CTDI is 27.67 mGy and DLP is 1592.79 mGy-cm. Automated exposure control was utilized for the study. A dose lowering technique was utilized adhering to the principles of ALARA. COMPARISON: No relevant prior studies available. FINDINGS: Lung bases: There is a small amount of atelectasis in both lung bases. ABDOMEN: Liver: Unremarkable. Gallbladder and bile ducts: Unremarkable. No calcified stones. No ductal dilation. Pancreas: Unremarkable. No ductal dilation. Spleen: Unremarkable. No splenomegaly. Adrenals: Unremarkable. No mass. Kidneys and ureters: The kidneys appear within normal limits. No hydronephrosis or ureterolithiasis is seen. Stomach and bowel: Unremarkable. No obstruction. No mucosal thickening. PELVIS: Appendix: The appendix is no visible. Bowel loops are nondilated. No acute inflammatory changes are seen involving the bowel. Bladder: Mild wall thickening and slight surrounding inflammation involving the urinary bladder suggesting hypertrophy from chronic bladder outlet obstruction and/or cystitis. 2 diverticula are present measuring up to 2.5 cm. No stones. Reproductive: Unremarkable as visualized. ABDOMEN and PELVIS: Intraperitoneal space: Unremarkable. No free air. No significant fluid collection. Bones/joints: Mild to moderate multilevel degenerative changes throughout the spine. No acute fracture or subluxation is seen. 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 No fracture is seen. Soft tissues: Unremarkable. Vasculature: There is an IVC filter in place located 4 cm inferior to the renal veins and 2.5 cm superior to the iliac vein confluence. The abdominal aorta is mildly calcified but nondilated. Lymph nodes: Unremarkable. No enlarged lymph nodes. IMPRESSION: 1. Mild wall thickening and slight surrounding inflammation involving the urinary bladder suggesting hypertrophy from chronic bladder outlet obstruction and/or cystitis. 2 diverticula are present measuring up to 2. 5 cm. 2. There is an IVC filter in place located 4 cm inferior to the renal veins and 2.5 cm superior to the iliac vein confluence. 3. The kidneys appear within normal limits. No hydronephrosis or ureterolithiasis is seen. 4. The appendix is no visible. Bowel loops are nondilated. No acute inflammatory changes are seen involving the bowel. 5. 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 No fracture is seen. Electronically signed by: Meliton Villanueva MD 09/09/23 20:39 PM Chest X-Ray 09/10/23 10:31 XR chest 2V PA/lateral CLINICAL HISTORY: r/t blood clot TECHNIQUE: 2 views of the chest were obtained. Comparison: Comparison is made to chest radiograph 09/06/[address] chest 09/07/2023 FINDINGS: No lines and tubes are seen. Calcified aortic knob is seen. The lungs are clear. No evidence of pleural effusion or pneumothorax. IMPRESSION: No acute chest disease. ACT 112: Negative or not required by law. Electronically signed by: Alonso Fay M.D. 09/10/2023 12:22 PM Ordered Studies 09/06/23 08:23 CT cervical spine wo con Stat CT head/brain wo con Stat 09/06/23 11:09 US venous doppler LE BI Urgent 09/06/23 11:37 US RUQ [US liver] Routine 09/07/23 15:59 CT chest diagnostic wo con Urgent 09/09/23 14:51 CT abd pelvis wo con Urgent Hospital Course (1) SOB (shortness of breath): Patient is a 78 yr male with bladder cancer, on immunotherapy, adrenal insufficiency, asthma, H/O DVT/PE, s/p IVC filter, dementia, prior prostate cancer, aortic stenosis, CKD3b, HTN, and other history as outlined below who presents to the ED today with progressive dyspnea and weakness. These symptoms seem to have been worsening since starting immunotherapy but are particularly worse over the last few days. Work-up in the ED revealed a mildly elevated troponin but no significant EKG changes. He was also noted to have bilateral LE edema - off chronic warfarin due to hematuria and anemia, had IVC filter placed in December 2022. Generalized weakness and shortness of breath Suspected pulmonary embolism Likely related to immunotherapy, adrenal insufficiency Right lower extremity chronic DVT H/O ANDRZEJ, Asthma H/O DVT/PE S/P IVC filter Transaminitis likely related to immunotherapy --CT Chest:Atelectasis is seen without evidence of pneumonia. Pulmonary hypertension. --Venous Doppler:Echogenic stranding is seen in the right femoral vein and greater saphenous vein compatible with nonocclusive thrombus. There is occlusion of the distal right popliteal vein with minimal distal reconstitution. Evaluation of the right calf is highly limited. No left DVT. --ECHO: EF 60 to 65%. Aortic valve appears mildly calcified. Mild to moderate aortic valve stenosis. Compared to prior imaging from 01/06/2023, no significant change. --Could not obtain CTA due to contrast allergy. Currently VQ scan not available currently at [facility]. Continue IV heparin. Transitioned to Lovenox SQ Appreciate hematology oncology input Saturating well on room air Continue PT OT: Recommends rehab placement Prednisone 1 mg/kg/day discontinued Appreciate endocrinology input: Increased home Hydrocortisone to 40mg AM and 20mg QPM Monitor for any bleeding issues Discussed in detail with patient's on 09/08/2023, 09/09/23 and 09/10/23: Understands and agrees with current management Given high risk for recurrence of PE, patient requires VQ scan to rule out Given significant hematuria in the past requiring discontinuation of Coumadin and placing IVC filter, would benefit from not continuing empiric anticoagulation if VQ scan is negative Given the scenario, patient will be transferred to [facility] for obtaining VQ scan and further management. Dr.Avinash Roper kindly accepted the patient. Carcinoma of the bladder/Prostate H/O recurrent bleeding issues: Hematuria in the past Has been on immunotherapy Urology consulted-appreciate input and recommendation Further immunotherapy as per oncologist Cough ? URI --CT:Atelectasis is seen without evidence of pneumonia. Pulmonary hypertension. --CXR on 09/10/23:No acute chest disease. Empirically started on Omnicef Aspiration precautions Speech eval request H/O Aortic stenosis Pulmonary hypertension Echo unchanged from prior Follow-up as outpatient Adrenal insufficiency Continue hydrocortisone as above Needs follow-up with endocrinology as outpatient HTN Likely due to steroids Added amlodipine 5 mg daily Monitor BP Transient confusion Likely delirium in setting of dementia Continue home medications Reorient frequently Avoid sedative medications as able Will consider CT head if recurrent confusion Mental status back to baseline (2) Weakness: Management as above (3) Fall: Fall precautions (4) Elevated liver function tests: Likely due to immunotherapy Liver ultrasound:No gallstones or biliary ductal dilatation. Partially obscured pancreas. Trended down (5) Elevated troponin: Trended down Echo showed no wall motion abnormality Denies any chest pain (6) Primary bladder malignant neoplasm: Needs follow-up with oncology as outpatient (7) Asthma: Chronic - continue outpatient inhalers Currently no signs of exacerbation (8) Obstructive sleep apnea: Pt used CPAP previously but not using presently - needs outpatient sleep medicine f/u (9) Adrenal insufficiency: Management as above (10) Dementia: Chronic, stable - Continue donepezil, memantine Plan DVT Px: Lovenox SQ Code Status: Full code Total Time Total Time Spent Total Time Spent (In Minutes): 78 minutes Discharge Plan Discharge Items Patient Disposition: Transfer Acute Care Hospital Reason For Visit: WORSENING SOB,WEAKNESS Discharge Diagnosis: Suspected pulmonary embolism Chronic right lower extremity DVT Adrenal insufficiency Carcinoma of the bladder/prostate on immunotherapy Cough Activity: Per Instructions section Exercise/Sports: Wait until after follow-up appointment Non-emergency contact: Primary Care Provider and Oncologist Call non-emergency contact if: you have any medication questions, your symptoms worsen, your pain is concerning for you and you have a fever Follow-up/Referrals: Deondre Hill MD [Primary Care Provider] - Diet: Regular Addtl Attending Provider Instructions: Follow-up with Dr.Avinash Roper at [facility] for further management Follow-up with your oncologist in 2-3 weeks 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 Further instructions as per endocrinology. -- Continue Lovenox 1 mg/kg body weight twice a day until further instructions from your physician at [facility] based on V/Q scan results. Seek immediate medical attention if your symptoms reoccur or worsen Please take all medications as instructed on discharge list below. Please call if you have any questions or problems. You can reach a [facility] hospitalist on duty at [facility] 24 hours a day by calling [phone] [facility] [employer] Teacher Provider Instructions: Date of Service: September 10, 2023 Current Inpatient Medications Acetaminophen (Acetaminophen 325 Mg Tab) 650 mg PO Q4H PRN PRN Reason: Pain or Fever Stop: 10/06/23 13:17 Last Admin: 09/10/23 10:05 Dose: 650 mg Albuterol (Albuterol Hfa 8 Gm Inhaler) 2 puffs INH Q6H PRN PRN Reason: shortness of breath or wheezing Stop: 10/06/23 13:17 Amlodipine Besylate (Amlodipine Besylate 5 Mg Tab) 10 mg PO QAM [facility] Stop: 10/09/23 03:29 Last Admin: 09/10/23 10:06 Dose: 10 mg Ascorbic Acid (Ascorbic Acid 500 Mg Tab) 1,000 mg PO QAM [facility] Stop: 10/07/23 08:59 Last Admin: 09/10/23 10:07 Dose: 1,000 mg Cefdinir (Cefdinir 300 Mg Cap) 300 mg PO BID [facility]; Protocol Stop: 09/12/23 10:14 Last Admin: 09/10/23 12:15 Dose: 300 mg Donepezil HCl (Donepezil Hcl 10 Mg Tab) 10 mg PO QAM [facility] Stop: 10/07/23 08:59 Last Admin: 09/10/23 10:07 Dose: 10 mg Enoxaparin Sodium (Enoxaparin 100 Mg/1ml Syr) 100 mg SQ Q12H [facility] Stop: 10/09/23 09:59 Last Admin: 09/10/23 10:08 Dose: 100 mg Ferrous Sulfate (Ferrous Sulfate 325 Mg Tab) 325 mg PO DAILY [facility] Stop: 10/07/23 08:59 Last Admin: 09/10/23 10:07 Dose: 325 mg Fluticasone Furoate (Fluticasone Furoate 200mcg 14 Puffs/Inhaler) 1 puffs INH PM TAWNY Stop: 10/06/23 20:59 Last Admin: 09/09/23 20:13 Dose: 1 puffs Hydrocortisone (Hydrocortisone 10 Mg Tab) 40 mg PO DAILY@0930 TAWNY Stop: 10/10/23 09:29 Last Admin: 09/10/23 10:07 Dose: 40 mg Hydrocortisone (Hydrocortisone 10 Mg Tab) 20 mg PO DAILY@1730 TANWY Stop: 10/10/23 17:29 Melatonin (Melatonin 3 Mg Tab) 3 mg PO HS PRN PRN Reason: Sleep Stop: 10/07/23 00:04 Last Admin: 09/09/23 22:04 Dose: 3 mg Memantine (Memantine Hcl 10 Mg Tab) 10 mg PO BID TAWNY Stop: 10/06/23 20:59 Last Admin: 09/10/23 10:07 Dose: 10 mg Montelukast Sodium (Montelukast Sodium 10 Mg Tablet) 10 mg PO DAILY TAWNY Stop: 10/07/23 08:59 Last Admin: 09/10/23 10:06 Dose: 10 mg Multivitamins/Minerals (Cerovite Adv Formula Tab) 1 tab PO DAILY TAWNY Stop: 10/07/23 08:59 Last Admin: 09/10/23 10:07 Dose: 1 tab Umeclidinium/Vilanterol (Umeclidinium/Vilanterol 62.5/25mcg 7 Puffs/Inhaler) 1 puffs INH PM TAWNY Stop: 10/06/23 20:59 Last Admin: 09/09/23 20:13 Dose: 1 puffs Vitamin D (Cholecalciferol 5,000 Units 125 Mcg Tab) 5,000 units PO QPM TAWNY Stop: 10/06/23 20:59 Last Admin: 09/09/23 20:14 Dose: 5,000 units Pending Studies at Discharge: No Stand-Alone Forms: My [facility] Skilled Items Patient informed of condition?: Yes DNR: No Discharge Level of Care: Other Communicable Disease: No Discharge Prognosis: Stable Lines: Peripheral IV Urinary Catheter: No Medications and DC Order Prescriptions: New enoxaparin 100 mg/mL Syringe 100 mg subcut Q12H Qty: 0 0RF hydrocortisone [Cortef] 10 mg Tablet 40 mg PO DAILY@30 Qty: 0 0RF cefdinir 300 mg Capsule 300 mg PO BID 5 Days Qty: 0 0RF amlodipine [Norvasc] 5 mg Tablet 10 mg PO QAM Qty: 0 0RF hydrocortisone [Cortef] 10 mg Tablet 20 mg PO DAILY@1730 Qty: 0 0RF Continued epinephrine 0.3 mg/0.3 mL auto-injector 0.3 mg IM DIRECTED PRN (Reason: anaphylaxis) memantine 10 mg tablet 10 mg PO BID cholecalciferol (vitamin D3) 125 mcg (5,000 unit) capsule 125 mcg PO QPM donepezil 10 mg tablet 10 mg PO QAM multivitamin with minerals Capsule 1 cap PO DAILY albuterol sulfate 90 mcg/actuation HFA aerosol inhaler 2 puff inhalation Q6H PRN (Reason: shortness of breath or wheezing) Qty: 8.5 2RF montelukast 10 mg tablet 10 mg PO DAILY fluticasone propionate 50 mcg/actuation spray,suspension 2 spray INTRANASAL DAILY PRN (Reason: allergies) Trelegy Ellipta 200-62.5-25 mcg blister with device 1 inh INHALATION QPM ascorbic acid (vitamin C) [Vitamin C] 1,000 mg Tablet 1,000 mg PO QAM ferrous sulfate 325 mg (65 mg iron) tablet,delayed release (DR/EC) 325 mg PO DAILY Held vitamin E 268 mg (400 unit) Capsule 268 mg PO DAILY Hold Instructions: While on Anticoagulation with Lovenox SQ Discontinued hydrocortisone 5 mg tablet See Rx Instructions .ROUTE .COMPLEX 90 Days Qty: 450 0RF Rx Instructions: 20 mg 09:30 after breakfast, 10 mg at dinner Discharge Orders: Discharge Order (Routine); Ordered 09/10/23 Ordered By: Matt Gongora Admission Data Admit Date/Time: 09/06/23 11:05 Attending Provider: Matt Gongora Admit Provider: Alda Christian I. Primary Care Provider: Deondre Hill Other Providers: Alda Christian I.; [place]; Michael Johnson Garner; Krissy Yusuf
[2023-09-10] MEDS ORDERED: HYDROCORTISONE 10 MG TAB PO SCH (17:30)
== END 2023-09-10 15:34 | disposition short-term general hospital (02) | DRG 176 ==
LOC: ED 08:04 → EDINP 11:05 → INTOOBSV 11:05 → SUATTDRO 11:05 → EDINP 13:18 → 2N 09-07 16:09

== ENCOUNTER 2023-10-09 21:43 | Inpatient (IN) ==
--- OUTSIDE RECORDS SUMMARY | 2023-10-09 21:49 | External Medical Summary | Summary of Care ---
Author Name Unknown Organization [facility] Address [address] [place] [address] Phone [phone] Care Team Providers Care Application Developer Manager Name Role Phone Arnold Willis MD Primary Care Provider [phone] Reason for Referral * Evaluate & Treat - Unlimited Visits (Within 30 days (routine)) - Pending Review Specialty Diagnoses / Procedures Referred By Monik de leon Referred To Contact Hematology/Oncology / Hematology Oncology Diagnoses Malignant neoplasm of urinary bladder, unspecified site (HCC) Arnold Willis MD [address] [place] [address] Referral ID Status Reason Start Date Expiration Date Visits Requested Visits Authorized [id number] Pending Review Specialty Services Required 09/28/[phone] Question Answer Referral Priority Within 30 days (routine) Where should this appointment be scheduled? [facility] Reason for Referral Malignant Oncology (Solid Organ Cancer) * Evaluate & Treat - Unlimited Visits (Within 30 days (routine)) - Pending Review Specialty Diagnoses / Procedures Referred By Monik de leon Referred To Contact Urology Diagnoses Malignant neoplasm of urinary bladder, unspecified site (HCC) Arnold Willis MD [address] [place] [address] Referral ID Status Reason Start Date Expiration Date Visits Requested Visits Authorized [id number] Pending Review Specialty Services Required 09/28/[phone] Question Answer Referral Priority Within 30 days (routine) Where should this appointment be scheduled? [facility] What is the patient being referred for? Cancer Comments Bladder and Prostate Cancer Reason for Visit * Reason Onset Date Comments Follow Up From being in [facility] care after discharge from hospitalShort of breath Diarrhea smelly and a lot of gas Hospital Follow-Up 10/09/2023 Encounter Details Date Type Department Care Team (Latest Contact Info) Description 09/28/2023 2:00 PM EST Office Visit [facility] [address] [place] [address] Arnold Willis MD [address] [place] [address] Malignant neoplasm of urinary bladder, unspecified site (HCC)*; Diarrhea, unspecified type; Adrenal insufficiency (HCC); ANDRZEJ (obstructive sleep apnea); Other acute myocarditis; Prostate cancer (HCC); Dementia without behavioral disturbance, psychotic disturbance, mood disturbance, or anxiety, unspecified dementia severity, unspecified dementia type (HCC); Hospital discharge follow-up; Muscular deconditioning; Moderate protein-calorie malnutrition (HCC) Allergies Active Allergy Reactions Criticality Noted Date Comments Chocolate Diarrhea 05/14/2023 Clindamycin Hcl 09/24/2005 rash Iodinated Contrast Media 10/01/2015 Ioversol Other (Please comment) High 08/10/[address] IV DYE documented as of this encounter (statuses as of 10/09/2023) Medications Medication Sig Dispensed Refills Start Date End Date Status Syringe/Needle , Disp, 25G X 1-1/2" 3 ML MISC To use with injection of hydrocortisone if needed 2 Each 5 6 Active Additional Information Patient not taking.Reported on 09/28/2023 Fluticasone Propionate 50 MCG/ACT Nasal Suspension (Flonase) SPRAY 2 SPRAYS INTO EACH NOSTRIL IN THE MORNING 16 mL 3 3 Active Trelegy Ellipta 200-62.5-25 MCG/ACT Aerosol Powder Breath Activated (Fluticasone-U meclidinium-Vi lanterol) Inhale 1 Puff by mouth every evening. 60 Blister Dosing Unit 11 3 Active Memantine HCl 10 MG Oral Tablet (Namenda) Take 1 Tablet by mouth 2 times a day with morning and evening meals. 180 Tablet 3 3 Active EpiPen 2-Pedro 0.3 MG/0.3ML Injection Solution Auto-injectorI ndications:Janene phylaxis, sequela USE DIRECTED 1 Each 0 3 Active Montelukast Sodium 10 MG Oral Tablet (Singulair)Ind ications:Chron ic allergic rhinitis Take 1 Tablet by mouth in the morning. 90 Tablet 3 3 Active Multi Adult Gummies Oral Tablet Chewable Take by mouth. 0 Active Vitamin D 125 MCG (5000 UT) Oral Capsule Take by mouth. 0 Active Sennosides-Doc usate Sodium 8.6-50 MG Oral Tablet Take 1 Tablet by mouth as needed. 0 3 Active Donepezil HCl 10 MG Oral Tablet (Aricept) TAKE 1 TABLET BY MOUTH EVERY MORNING WITH LARGEST MEAL OF THE DAY. 90 Tablet 0 4 Active Iron 325 (65 Fe) MG Oral Tablet Take by mouth. 0 Active Acetaminophen 325 MG Oral Capsule Take 650 mg by mouth every 4 hours as needed for Pain (fever or pain). 0 Active Ascorbic Acid 500 MG Oral Tablet Take 2 Tablets by mouth every morning. 0 Active Melatonin 1 MG Oral Tablet Chewable Take 3 mg by mouth at bedtime as needed for Insomnia. 0 Active predniSONE 50 MG Oral Tablet (Deltasone) Take 2 Tablets by mouth in the morning. 30 Tablet 1 4 Active Omeprazole 20 MG Oral Capsule Delayed Release (PriLOSEC) Take 1 Capsule by mouth in the morning. 30 Capsule 1 4 Active Nystatin 513507 UNIT/ML Mouth/Throat Suspension 0 4 Active amLODIPine Besylate 5 MG Oral Tablet (Norvasc) Take 1 Tablet by mouth in the morning. 0 4 Active amLODIPine 1.25 MG OR TABS Take 4 Tablets by mouth in the morning. 0 09/28/19 24 Discontinued Sulfamethoxazo le-Trimethopri m 800-160 MG Oral Tablet (Bactrim DS) Take 1 Tablet by mouth once a day on Wednesday, Wednesday, and Wednesday only. 20 Tablet 0 4 10/06/19 24 Discontinued(Al dication List Clean Up) documented as of this encounter (statuses as of 10/09/2023) Active Problems Problem Noted Date Diagnosed Date Malnutrition of moderate degree 09/13/2023 Elevated troponin 09/11/2023 Acute myocarditis 09/11/2023 Suspected pulmonary embolism 09/10/2023 Urothelial carcinoma of bladder 08/30/2023 Unspecified dementia, [...] Adrenal insufficiency 04/23/2015 Chronic steroid use 02/21/2015 HTN (hypertension) 10/16/2014 History of DVT in adulthood 08/20/2014 History of pulmonary embolism 04/16/2014 Deviated nasal septum 02/03/2006 ANGIOEDEMA 02/25/2005 documented as of this encounter (statuses as of 10/09/2023) Resolved Problems Problem Noted Date Diagnosed Date [...] protocol #1 Adrenal cortex insufficiency 06/17/2015 04/13/2017 DVT (deep venous thrombosis) 08/20/2014 12/28/2017 Chronic [...] as of this encounter (statuses as of 10/09/2023) Immunizations Name Administration Dates Next Due COVID-19 mRNA, LNP-s, No Pre serve, 2-Dose Series ([employer]) 05/30/2021,10/29/2020,10/08/2020 COVID-19, LNP-s, No Preserve , Prosper-sucrose, [...] Packs/Day Years Used Date Smoking Tobacco: Never Passive Smoke Exposure: Never Smokeless Tobacco: Never Tobacco Cessation:Counseling Given: Not Answered Comments:passive smoke from at home Alcohol Use Standard Drinks/Week Comments No 0 (1 standard drink = 0.6 oz pur e alcohol) 1 beer per year AUDIT-C Answer Date Recorded Q1: How often do you have a drink containing alcohol? Never 09/10/2023 Q2: How many drinks containi ng alcohol do you have on a typical day when you are drinking? Patient does not drink Q3: How often do you have si x or more drinks on one occasion? Never 09/10/2023 PHQ-2 Answer Date Recorded PHQ-2 Score 0 [...] Sign Reading Time Taken Comments Blood Pressure 128/64 09/28/2023 2:05 PM EST Pulse 93 09/28/2023 2:05 PM EST Temperature 36 C (96.8 F) 09/28/2023 2:05 PM EST Respiratory Rate 18 09/28/2023 2:05 PM EST Oxygen Saturation 97% 09/28/2023 2:05 PM EST Inhaled Oxygen Concentration - - Weight 103.4 kg (228 lb) 09/28/2023 2:05 PM EST Height - - Body Mass Index 28.5 09/12/2023 12:39 AM EST documented in this encounter Functional Status Functional Status Response Date of Assess ment Are you deaf or do you have serious difficulty h earing? No 09/12/2023 Are you blind or do you have serious difficulty seeing, even when wearing glasses? No 09/12/2023 Do you have serious difficul ty walking or climbing stairs? (5 years old or older) Yes 09/12/2023 Do you have difficulty dress ing or bathing? (5 years old or older) No 09/12/2023 Because of a physical, menta l, or emotional condition, do you have difficulty doing errands alone such as visiting a doctor s office or shopping? (15 years old or older) Yes 09/12/19 Cognitive Status Response Date of Assessm ent Because of a physical, menta l, or emotional condition, do you have serious difficulty concentrating, remembering, or making decisions? (5 years old or older) Yes 09/12/2023 documented as of this encounter Progress Notes * Arnold Willis MD - 09/28/2023 3:05 PM EST Subjective: Branden High is a 78 year old male here today for Chief Complaint Patient presents with Follow Up From being in [facility] after discharge from hospital Short of breath Diarrhea smelly and a lot of gas Pt presents for hospital follow up. He was admitted to [facility] 09/06/23 - 09/10/23. [facility] 09/10/23-09/11/23 and [facility] 08/2723-09/14/23. Patient has a history of bladder cancer being treated with immunotherapy, adrenal insufficiency, asthma, previous history of DVT and PE with an IVC filter, dementia, prostate cancer, aortic stenosis, stage 3 chronic kidney disease, hypertension. Patient presented to the emergency department for evaluation of progressive dyspnea and weakness. He had started Keytruda immunotherapy in July. Unfortunately, with the treatments, patient experienced progressive weakness with worsening of his chronic shortness of breath. Patient also had coughwith some symptoms of dysphagia. Has had poor appetite, weight loss. Has had some falls. Patient was found to have an elevated troponin, elevated transaminases. Echocardiogram showed an ejection fraction of 60 to 65% with [id number]-[id number] aortic valve stenosis but no significant change compared to previous. Symptoms were felt concerning for pulmonary embolism. Patient unable to have CT scan with contrast.Was unable to get vq at [facility], so was transferred to [place]. The V/Q scan returned low probability for pulmonary embolism. 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 For that reason, he was transferred to [facility]. Cardiac MRI confirmed myocarditis. Started on 1 mg/kg of prednisione, PJP prophylaxis, PPI. Keytruda on hold. While on high dose prednisone, his chronic steroids for adrenal insufficiency are being held. Pt continues to be weak and have difficulties with appetite. Continued urinary issues He has ANDRZEJ and uses CPAP. His machine was recalled and he has not been using it. Is in need of new orders. Had been following with the Sleep Med department, but has not seen them recently and due to difficulties with transportation and ability to keep appts, is requesting that I send in orders. He is having problems with diarrhea but no melena or hematochezia. 1-2 episodes per day. He cannot ambulate safely on his own. He requires the use of a walker for stability. Given his height and size, will need a seat and will need to be wide. Past Medical History: Diagnosis Date Adrenal insufficiency (HCC) 04/23/2015 Allergic rhinitis 2007 Chronic anticoagulation 04/13/2017 Chronic rhinitis 2007 Chronic sinusitis 2006 Deviated nasal septum 2006 History of DVT in adulthood 08/20/2014 History of pulmonary embolism 04/2014 Kidney disease, chronic, stage III (GFR 30-59 ml/min) 10/21/2015 Per CKD protocol #1 ANDRZEJ (obstructive sleep apnea) 08/19/2018 Prostate cancer ([facility]) Past Surgical History: Procedure Laterality Date CATARACT SURGERY,COMPLEX Bilateral REMOVAL OF APPENDIX Review of patient's allergies indicates: Allergen Reactions Ioversol Other (Please comment) CARDIAC ARREST CT IV DYE Chocolate Diarrhea Clindamycin [Clindamycin Hcl] rash Iodinated Contrast Media Current Outpatient Medications Medication Sig Dispense Refill Fluticasone Propionate 50 MCG/ACT Nasal Suspension (Flonase) SPRAY 2 SPRAYS INTO EACH NOSTRIL IN THE MORNING 16 mL 3 Trelegy Ellipta 200-62.5-25 MCG/ACT Aerosol Powder Breath Activated (Vnjaebccnmt-Pbhghyjgolza-Fhenjuqttr) Inhale 1 Puff by mouth every evening. 60 Blister Dosing Unit 11 Memantine HCl 10 MG Oral Tablet (Namenda) Take 1 Tablet by mouth 2 times a day with morning and evening meals. 180 Tablet 3 EpiPen 2-Pedro 0.3 MG/0.3ML Injection Solution Auto-injector USE DIRECTED 1 Each 0 Montelukast Sodium 10 MG Oral Tablet (Singulair) Take 1 Tablet by mouth in the morning. 90 Tablet 3 Multi Adult Gummies Oral Tablet Chewable Take by mouth. Vitamin D 125 MCG (5000 UT) Oral Capsule Take by mouth. (Patient not taking: Reported on 10/06/2023) Sennosides-Docusate Sodium 8.6-50 MG Oral Tablet Take 1 Tablet by mouth as needed. Donepezil HCl 10 MG Oral Tablet (Aricept) TAKE 1 TABLET BY MOUTH EVERY MORNING WITH LARGEST MEAL OFTHE DAY. 90 Tablet 0 Iron 325 (65 Fe) MG Oral Tablet Take by mouth. Acetaminophen 325 MG Oral Capsule Take 650 mg by mouth every 4 hours as needed for Pain (fever or pain). Ascorbic Acid 500 MG Oral Tablet Take 2 Tablets by mouth every morning. Melatonin 1 MG Oral Tablet Chewable Take 3 mg by mouth at bedtime as needed for Insomnia. (Patient not taking: Reported on 10/06/2023) predniSONE 50 MG Oral Tablet (Deltasone) Take 2 Tablets by mouth in the morning. 30 Tablet 1 Omeprazole 20 MG Oral Capsule Delayed Release (PriLOSEC) Take 1 Capsule by mouth in the morning. 30Capsule 1 Nystatin 462779 UNIT/ML Mouth/Throat Suspension amLODIPine Besylate 5 MG Oral Tablet (Norvasc) Take 1 Tablet by mouth in the morning. Syringe/Needle, Disp, 25G X 1-1/2" 3 ML MISC To use with injection of hydrocortisone if needed (Patient not taking: Reported on 09/28/2023) 2 Each 5 Ipratropium-Albuterol 0.5-2.5 (3) MG/3ML Inhalation Solution (Duoneb) Inhale 3 mL by mouth every 6 hours as needed. amLODIPine Besylate 5 MG Oral Tablet (Norvasc) Take 1 Tablet by mouth in the morning. 30 Tablet 2 Sulfamethoxazole-Trimethoprim 800-160 MG Oral Tablet (Bactrim DS) 1 tablet 3 days a week ( Wednesday, Wednesday, Wednesday). 36 Tablet 0 predniSONE 20 MG Oral Tablet (Deltasone) 4 tablets (80 mg ) once a day in the morning with food. 120 Tablet 1 No current facility-administered medications for this visit. Objective: BP 128/64 | Pulse 93 | Temp 36 C (96.8 F) (Infrared ) | Resp 18 | Wt 103.4 kg (228 lb) | SpO2 97% | BMI 28.50 kg/m | BSA 2.34 m GEN: NAD NECK: Supple with no LAD, TM, JVD CHEST: CTA B CV: RRR ABD: Soft, NT, NABS EXT: he does have bilateral lower extremity edema. Assessment and Plan: Malignant neoplasm of urinary bladder, unspecified site (HCC) (Primary) - Keytruda therapy on hold. Pt requesting appt with Dr Gramajo of [facility] oncology for an opinion on careand future treatments. Continued follow up with oncology and urology. -Pt requesting an appointment with Dr Villareal in the urology department at [facility]. Diarrhea, unspecified type - CLOSTRIDIUM DIFFICILE, PCR; Future; Expected date: 09/28/2023 -check for C diff. Patient, family to notify office of worsening symptoms. Adrenal insufficiency (HCC) -chronic steroids on hold while currently on high-dose prednisone. Will contact Oncology and Cardiology to see how it will be determined how long he needs to be on prednisone treatment for his myocarditis because we will then need to transition him back to his previous steroids. ANDRZEJ (obstructive sleep apnea) -patient has diagnosed obstructive sleep apnea and benefits from treatment. His machine has been recalled and he has not had it available for use. Is medically necessary for ongoing CPAP treatments. Orders provided. Other acute myocarditis -arranging follow-up with Cardiology to determine duration of treatment of myocarditis with prednisone. Prostate cancer (HCC) Dementia without behavioral disturbance, psychotic disturbance, mood disturbance, or anxiety, unspecified dementia severity, unspecified dementia type (HCC) -continue current treatments Weakness, ambulatory dysfunction. -medically necessary for walker for safe ambulation. -given his myocarditis and difficulty with lower extremity swelling and his shortness of breath, patient requires frequent positioning of his lower extremities in a manner that is not feasible in an ordinary bed. The head of the bed also should be elevated at 30 most of the time given his issues with shortness of breath. Given his height, will likely need extenders. Arnold Willis MD documented in this encounter Nursing Notes * Leesa Salazar LPN - 09/28/2023 1:52 PM EST Chief Complaint Patient presents with Follow Up From being in [facility] after discharge from hospital Short of breath documented in this encounter Miscellaneous Notes * Addendum Note - Arnold Willis MD - 10/09/2023 8:24 AM ESTAddended by: ARNOLD WILLIS on: 10/09/2023 08:24 AM Modules accepted: Orders documented in this encounter Plan of Treatment Upcoming Encounters Date Type Department Care Team (Late st Contact Info) Description 10/13/2023 12:00 PM EST Laboratory Laboratory, [place] [address] [place] [address] [place] [id number] [place] [address] 10/29/2023 11:15 AM EDT Office Visit Urology, [place] [address] [place] [address] Ernesto Villareal MD [address] [place] [address] 11/03/2023 11:15 AM EDT Office Visit Hematology/Oncology [facility] [place] [address] [facility] [place] [phone] Xavi Gramajo MD [address] [facility] [place] [address] 11/08/2023 1:00 PM EDT Office Visit Cardiology, [facility] [address] [place] [address] Zak Rubio, DO [address] [place] [address] 11/09/2023 2:30 PM EDT Office Visit Otolaryngology [facility] [address] [place] [address] Dioni Jean-Baptiste, DO [address] [place] [address] 11/26/2023 2:20 PM EDT Office Visit Neurology [facility] [address] [facility] [place] [address] Ellie Duncan MD [address] [place] [address] 11/29/2023 1:00 PM EDT Office Visit [place] [address] [place] [address] Deondre Hill MD [address], [place] [id number] 12/16/2023 4:30 PM EDT Office Visit [facility] [address] [place] [phone] Radha Caballero CRNP [address] [facility] [address] 04/21/2024 2:40 PM EDT Office Visit [facility] [address] [place] [phone] Arnold Willis MD [address] [place], [place] [phone] Scheduled Referrals Name Type Priority Associated Diagnoses Orde r Schedule ADULT/PEDS UROLOGY REFERRAL OP Referral Within 30 days (routine) Malignant neoplasm of urinary bladder, unspecified site (HCC) Ordered: 09/28/2023 HEMATOLOGY/ONCOLOGY REFERRAL OP Referral Within 30 days (routine) Malignant neoplasm of urinary bladder, unspecified site (HCC) Ordered: 09/28/2023 Health Maintenance Due Date Last Done Comments Albumin/Creatinine Ratio 1963 DTaP,Tdap,and Td Vaccines (1 - Tdap) 1964 Depression Screening 04/29/2021 04/29/2020 COVID-19 Vaccine (5 - 2022-24 season) 2023 02/11/2022, 02/11/2022, 05/30/2021, Additional history exists Influenza Vaccine (FLU shot) (#1) 2023 05/29/2022, 05/27/2021, 06/13/2020, Additional history exists GFR 04/05/2024 10/06/2023, 08/18, 09/13/2023, Additional history exists CKD PHOS USE SMARTSET 80917 09/11/202408/17, 09/11/2023, 07/14/2021, Additional history exists CKD HGB USE SMARTSET 03029 10/06/202410/06, 10/06/2023, 09/14/2023, Additional history exists Pneumococcal Vaccine: 65+ Years [...] Not on filedocumented as of this encounter Results * CLOSTRIDIUM DIFFICILE, PCR (09/30/2023 11:05 AM EST) Stool Consistency Semi-formed 09/30/2023 11:29 PM EST LABORATORY [facility] Clostridium difficile Result Negative. No C. difficile toxin B gene DNA detected by PCR (Amplified Probe). Negative 09/30/2023 11:29 PM EST LABORATORY [facility] Stool Stool specimen / Unknown Non-blood Collection / Unknown 09/30/2023 11:05 AM EST 09/30/2023 11:06 AM EST Arnold Willis MD LAB MICRO - GENERA L ORDERABLES LABORATORY [facility] [address] [place] [address] documented in this encounter Visit Diagnoses Diagnosis Malignant neoplasm of urinary bladder, unspecified site (HCC)- Primary Diarrhea, unspecified type Adrenal insufficiency (HCC) Glucocorticoid deficiency ANDRZEJ (obstructive sleep apnea) Obstructive sleep apnea (adult) (pediatric) Other acute myocarditis Prostate cancer (HCC) Malignant neoplasm of prostate Dementia without behavioral disturbance, psychotic disturbance, mood disturbance, or anxiety, unspecified dementia severity, unspecified dementia type (HCC) Hospital discharge follow-up Other follow-up examination Muscular deconditioning Muscular wasting and disuse atrophy, not elsewhere classified Moderate protein-calorie malnutrition (HCC) Malnutrition of moderate degree documented in this encounter Additional Health Concerns Infection Onset Date Last Indicated Resolved Time C. difficile Rule-Out 09/30/2023 09/30/20232023 11:29 PM EST documented as of this encounter Advance Directives Latest Code Status on File Code Status Date Activated Date Inactivated Comments Full Code 09/11/2023 11:48 PM 09/14/2023 6:37 PM This order reflects the patients wishes and were consensually agreed upon. Question Answer Comments Discussion of Advance Directives occurred with: Patient Code Status History Code Status Date Activated Date Inactivated Comments Full Code 09/10/2023 4:24 PM 09/11/2023 11:38 PM This order reflects the patients wishes and were consensually agreed upon. Question Answer Comments Discussion of Advance Directives occurred with: Patient Does the patient have a Living Will? No Does the patient have Health Care Power of Career Specialist? No Care Teams Application Developer Manager Relationship Specialty Start Date End Date Arnold Willis MD [address] [place] [address] PCP - General Family Medicine 07/11/14 documented as of this encounter
--- OUTSIDE RECORDS SUMMARY | 2023-10-09 21:49 | External Medical Summary | Summary of Care ---
Author Name Unknown Organization [facility] Address [address] [facility] [place] [address] Phone [phone] Care Team Providers Care Black Top Roller Name Role Phone Chuy Batista MD Primary Care Provider +1- [phone] Reason for Visit * Reason Onset Date Comments Test Results Lab 10/07/2023 Encounter Details Date Type Department Care Team (Late st Contact Info) Description 10/07/2023 Telephone Hematology/Oncology [facility] [place] [address] [facility] [place] [phone] Enoc Gramajo MD [address] [facility] [place] [address] Test Results Lab Allergies Active Allergy Reactions Criticality Noted Date Comments Chocolate Diarrhea 05/14/2023 Clindamycin Hcl 09/24/2005 rash Iodinated Contrast Media 10/01/2015 Ioversol Other (Please comment) High 08/10/[address] IV DYE documented as of this encounter (statuses as of 10/07/2023) Medications Medication Sig Dispensed Refills Start Date End Date Status Syringe/Needle, Disp, 25G X 1-1/2" 3 ML MISC To use with injection of hydrocortisone if needed 2 Each 5 08/31/2015 Active Additional Information Patient not taking.Reported on 09/28/2023 Fluticasone Propionate 50 MCG/ACT Nasal Suspension (Flonase) SPRAY 2 SPRAYS INTO EACH NOSTRIL IN THE MORNING 16 mL 3 10/17/2022 Active Trelegy Ellipta 200-62.5-25 MCG/ACT Aerosol Powder Breath Activated (Fluticasone-Umec lidinium-Vilanter ol) Inhale 1 Puff by mouth every evening. 60 Blister Dosing Unit 11 10/26/2022 Active Memantine HCl 10 MG Oral Tablet (Namenda) Take 1 Tablet by mouth 2 times a day with morning and evening meals. 180 Tablet 3 11/05/2022 Active EpiPen 2-Pedro 0.3 MG/0.3ML Injection Solution Auto-injectorIndi cations:Anaphylax is, sequela USE DIRECTED 1 Each 0 01/27/2023 Active Montelukast Sodium 10 MG Oral Tablet (Singulair)Indica tions:Chronic allergic rhinitis Take 1 Tablet by mouth in the morning. 90 Tablet 3 01/27/2023 Active Multi Adult Gummies Oral Tablet Chewable Take by mouth. 0 Activ e Vitamin D 125 MCG (5000 UT) Oral Capsule Take by mouth. 0 Active Sennosides-Docusa te Sodium 8.6-50 MG Oral Tablet Take 1 [...] mouth in the morning. 30 Tablet 1 09/14/2023 Active Omeprazole 20 MG Oral Capsule Delayed Release (PriLOSEC) Take 1 Capsule by mouth in the morning. 30 Capsule 1 09/14/2023 Active Nystatin 612363 UNIT/ML Mouth/Throat Suspension 0 09/27/2023 Active amLODIPine Besylate 5 MG Oral Tablet (Norvasc) Take 1 Tablet by mouth in the morning. 0 09/10/2023 Active Ipratropium-Albut emily 0.5-2.5 (3) MG/3ML Inhalation Solution (Duoneb) Inhale 3 mL by mouth every 6 hours as needed. 0 Active amLODIPine Besylate 5 MG Oral Tablet (Norvasc)Indicati ons:Urothelial carcinoma of bladder (HCC),Other acute myocarditis Take 1 Tablet by mouth in the morning. 30 Tablet 2 10/07/2023 Active Sulfamethoxazole- Trimethoprim 800-160 MG Oral Tablet (Bactrim DS)Indications:Ur othelial carcinoma of bladder (HCC),Other acute myocarditis 1 tablet 3 days a week ( Wednesday, Wednesday, Wednesday). 36 Tablet 0 10/07/2023 Active predniSONE 20 MG Oral Tablet (Deltasone)Indica tions:Urothelial carcinoma of bladder (HCC),Other acute myocarditis 4 tablets (80 mg ) once a day in the morning with food. 120 Tablet 1 10/07/2023 Active documented as of this encounter (statuses as of 10/07/2023) Active Problems Problem Noted Date Diagnosed Date [...] as of this encounter (statuses as of 10/07/2023) Resolved Problems Problem Noted Date Diagnosed Date [...] as of this encounter (statuses as of 10/07/2023) Immunizations Name Administration Dates Next Due COVID-19 mRNA, LNP-s, No Pre serve, 2-Dose Series ([employer]) 05/30/2021,10/29/2020,10/08/2020 COVID-19, LNP-s, No Preserve , Prosper-sucrose, [...] Passive Smoke Exposure: Never Smokeless Tobacco: Never Comments:passive smoke from [...] on file documented as of this encounter Functional Status Functional Status Response [...] Yes 09/12/2023 documented as of this encounter Miscellaneous Notes * Telephone Encounter - Sarah Valle OSA - 10/07/2023 4:15 PM EST Reason for patient's call: returned call Caller was transferred to [facility] at the nurse line. * Telephone Encounter - Jenna Shannon RN - 10/07/2023 4:11 PM EST Attempted to call patient again. No answer, no voicemail. * Telephone Encounter - Jenna Shannon RN - 10/07/2023 10:49 AM EST Attempted for call patient. - no answer, no voicemail on home number - mobile number went to a voicemail for [employer]. Did not leave voicemail * Addendum Note - Enoc Gramajo MD - 10/07/2023 10:23 AM ESTAddended by: ENOC GRAMAJO on: 10/07/2023 10:23 AM Modules accepted: Orders * Telephone Encounter - Enoc Gramajo MD - 10/07/2023 10:20 AM EST Currently he is on oral prednisone 100 mg once a day. I would like to cut down to 80 mg once a day, repeat CBCD, comprehensive metabolic panel, troponin T, CK in about 1 week time. When I saw him yesterday, he needed 3 prescriptions: -e-prescribed prednisone 20 mg tablet, 80 mg once a day -e-prescribed Bactrim prophylaxis 3 days a week. - He also needed amlodipine prescription, e-prescribed amlodipine 5 mg once a day. * Telephone Encounter - Jenna Shannon RN - 10/07/2023 9:[address] Gramajo: FYI- per office note "After reviewing cardiac markers, will decide about cutting back thedose of the prednisone, typically It is tapered over 8 to 12 weeks timeline." Component Latest Ref Rng 09/11/2023 09/12/2023 09/13/2023 10/06/2023 Troponin T, High Sensitivity <=22 ng/L 807 (HH) 615 (HH) 682 (HH) 221 (HH) Troponin T, High Sensitivity 806 (HH) Troponin T, High Sensitivity 794 (HH) Troponin T, High Sensitivity 800 (HH) Component Latest Ref Rng 09/11/2023 09/13/2023 10/06/2023 BNP, NT-Pro <300 pg/mL 69 <36 105 Component Latest Ref Rng 09/11/2023 10/06/2023 CK 39 - 308 U/L 331 (H) 50 * Telephone Encounter - Kailee Montgomery LPN - 10/07/2023 9:12 AM EST Critical Lab Troponin from 10/06 is 221 documented in this encounter Plan of Treatment Upcoming Encounters Date Type Department Care Team (Late st Contact Info) Description 10/29/2023 11:15 AM EDT Office Visit Urology, [place] [address] [place] [address] Ernesto Villareal MD [address] [place] [address] 11/03/2023 11:15 AM EDT Office Visit Hematology/Oncology [facility] [address] [place] [phone] Enoc Gramajo MD [address] [place] [address] 11/08/2023 1:00 PM EDT Office Visit Cardiology, [facility] [address] [facility] [place] [address] Zak Rubio DO [address] [facility] [place] [address] 11/09/2023 2:30 PM EDT Office Visit Otolaryngology [facility] [address] [facility] [place] [address] Dioni Jean-Baptiste DO [address] [place] [address] 11/26/2023 2:20 PM EDT Office Visit Neurology [facility] [address] [facility] [place] [address] Ellie Duncan MD [address] [place] [address] 11/29/2023 1:00 PM EDT Office Visit [facility] [address] [place] [facility] [place] [address] Deondre Hill MD [address] [place] [facility] [place] [address] 12/16/2023 4:30 PM EDT Office Visit [facility] [address] [facility] [place] [phone] Radha Caballero CRNP [address] [place] [address] 04/21/2024 2:40 PM EDT Office Visit [facility] [address] [place] [place] [address] Chuy Batista MD [address] [facility] [place] [phone] Health Maintenance Due Date Last Done Comments Albumin/Creatinine Ratio 1963 DTaP,Tdap,and Td Vaccines (1 - Tdap) 1964 Depression Screening 04/29/2021 04/29/2020 COVID-19 Vaccine (5 - 2022- season) 2023 02/11/2022, 02/11/2022, 05/30/2021, Additional history exists Influenza Vaccine (FLU shot) (#1) 2023 05/29/2022, 05/27/2021, 06/13/2020, Additional history exists GFR 04/05/2024 10/06/2023, 08/18, 09/13/2023, Additional history exists CKD PHOS USE SMARTSET 07404 09/11/202408/17, 09/11/2023, 07/14/2021, Additional history exists CKD HGB USE SMARTSET 73443 10/06/202410/06, 10/06/2023, 09/14/2023, Additional history exists Pneumococcal [...] Diagnosis Urothelial carcinoma of bladder (HCC)- Primary Other acute myocarditis documented in this encounter Advance Directives Latest Code Status [...] the patient have Health Care Power of Instrumentation Technician? No Care Teams Black Top Roller Relationship Specialty Start Date End Date Chuy Batista MD [address] [place] [address] PCP - General Family Medicine 07/11/14 documented as of this encounter
--- OUTSIDE RECORDS SUMMARY | 2023-10-09 21:49 | External Medical Summary | Summary of Care ---
Author Name Unknown Organization [facility] Address [address] [facility] [place] [address] Phone [phone] Care Team Providers Care Dice Spotter Name Role Phone Chuy Batista MD Primary Care Provider +1- [phone] Reason for Visit * Reason Onset Date Comments Test Results Lab 10/07/2023 Encounter Details Date Type Department Care Team (Late st Contact Info) Description 10/07/2023 Telephone Hematology/Oncology [facility] [place] [address] [place] [phone] Enoc Gramajo MD [address] [place] [address] Test Results Lab Allergies Active Allergy Reactions [...] morning. 30 Capsule 1 09/14/2023 Active Nystatin 928730 UNIT/ML Mouth/Throat Suspension 0 09/27/2023 Active amLODIPine [...] mRNA, LNP-s, No Pre serve, 2-Dose Series ([employer]) 05/30/2021,10/29/2020,10/08/2020 COVID-19, LNP-s, No Preserve , Prosper-sucrose, [...] encounter Miscellaneous Notes * Telephone Encounter - Jenna Shannon RN [...] EDT Office Visit Urology, [place] [address] [place] [address] Ernesto Villarael MD [address] [place] [address] 11/03/2023 11:15 AM EDT Office Visit Hematology/Oncology [facility] [address] [place] [phone] Enoc Gramajo MD [address] [place] [address] 11/08/2023 1:00 PM EDT Office Visit Cardiology, [facility] [address] [place] [address] Zak Rubio, DO [address] [facility] [place] [address] 11/09/2023 2:30 PM EDT Office Visit Otolaryngology [facility] [address] [place] [address] Dioni Jean-Baptiste, [address] [facility] [place] [address] 11/26/2023 2:20 PM EDT Office Visit Neurology [facility] [address] [place] [address] Ellie Duncan MD [address] [place] [address] 11/29/2023 1:00 PM EDT Office Visit [facility] [address] [place] [phone] Deondre Hill MD [address] [place] [address] 12/16/2023 4:30 PM EDT Office Visit Sleep Disorders [facility]tr [facility] [address] [place] [phone] Radha Caballero CRNP [address] [place] [address] 04/21/2024 2:40 PM EDT Office Visit [facility] [address] [place] [address] Chuy Batista MD [address] [place] [address] Health Maintenance Due Date Last Done Comments Albumin/Creatinine Ratio 1963 DTaP,Tdap,and Td Vaccines (1 - Tdap) 1964 Depression Screening 04/29/2021 04/29/2020 COVID-19 Vaccine (5 - 2022- season) 2023 02/11/2022, 02/11/2022, 05/30/2021, Additional history exists Influenza Vaccine (FLU shot) (#1) 2023 05/29/2022, 05/27/2021, 06/13/2020, Additional history exists GFR 04/05/2024 10/06/2023, 08/18, 09/13/2023, Additional history exists CKD PHOS USE SMARTSET 06073 09/11/202408/17, 09/11/2023, 07/14/2021, Additional history exists CKD HGB USE SMARTSET 13956 10/06/202410/06, 10/06/2023, 09/14/2023, Additional history exists Pneumococcal [...] the patient have Health Care Power of Director Trading? No Care Teams Dice Spotter Relationship Specialty Start Date End Date Chuy Batista MD [address] [place] [address] PCP - General Family Medicine 07/11/14 documented as of this encounter
--- OUTSIDE RECORDS SUMMARY | 2023-10-09 21:49 | External Medical Summary | Summary of Care ---
Author Name Unknown Organization [facility] Address [address] [facility] [place] [address] Phone [phone] Care Team Providers Care Inspector Chief Name Role Phone Chuy Batista MD Primary Care Provider +1- [phone] Reason for Visit * Reason Onset Date Comments Test Results Lab 10/07/2023 Encounter Details Date Type Department Care Team (Late st Contact Info) Description 10/07/2023 Telephone Hematology/Oncology [facility] [place] [address] [facility] [place] [phone] Enoc Gramajo MD [address] [facility] [place] [address] Test Results Lab Allergies Active Allergy Reactions [...] morning. 30 Capsule 1 09/14/2023 Active Nystatin 257115 UNIT/ML Mouth/Throat Suspension 0 09/27/2023 Active amLODIPine [...] mRNA, LNP-s, No Pre serve, 2-Dose Series ([employer]) 05/30/2021,10/29/2020,10/08/2020 COVID-19, LNP-s, No Preserve , Prosper-sucrose, [...] Valle OSA - 10/07/2023 4:15 PM EST Patient returned call transferred to oncology * Telephone Encounter - Jenna Shannon RN [...] 10/29/2023 11:15 AM EDT Office Visit Urology, [place] [address] [place] [address] Ernesto Villareal MD [address] [place] [address] 11/03/2023 11:15 AM EDT Office Visit Hematology/Oncology [facility] [address] [facility] [place] [phone] Enoc Gramajo MD [address] [facility] [place] [address] 11/08/2023 1:00 PM EDT Office Visit Cardiology, [facility] [address] [facility] [place] [address] Zak Rubio, DO [address] [place] [address] 11/09/2023 2:30 PM EDT Office Visit Otolaryngology [facility] [address] [place] [address] Dioni Jean-Baptiste, DO [address] [place] [address] 11/26/2023 2:20 PM EDT Office Visit Neurology [facility] [address] [facility] [place] [address] Ellie Duncan MD [address] [facility] [place] [address] 11/29/2023 1:00 PM EDT Office Visit Family Practice, [place] [address] [place] [phone] Deondre Hill MD [address] [place] [address] 12/16/2023 4:30 PM EDT Office Visit Sleep Disorders Ctr [facility] [address] [place] [address] Radha Caballero CRNP [address] [place] [address] 04/21/2024 2:40 PM EDT Office Visit [place] [address] [place] [phone] Chuy Batista MD [address] [place] [address] Health Maintenance Due Date Last Done Comments Albumin/Creatinine Ratio 1963 DTaP,Tdap,and Td Vaccines (1 - Tdap) 1964 Depression Screening 04/29/2021 04/29/2020 COVID-19 Vaccine (5 - 2022- season) 2023 02/11/2022, 02/11/2022, 05/30/2021, Additional history exists Influenza Vaccine (FLU shot) (#1) 2023 05/29/2022, 05/27/2021, 06/13/2020, Additional history exists GFR 04/05/2024 10/06/2023, 08/18, 09/13/2023, Additional history exists CKD PHOS USE SMARTSET 60685 09/11/202408/17, 09/11/2023, 07/14/2021, Additional history exists CKD HGB USE SMARTSET 95202 10/06/202410/06, 10/06/2023, 09/14/2023, Additional history exists Pneumococcal [...] the patient have Health Care Power of Singe Winder? No Care Teams Inspector Chief Relationship Specialty Start Date End Date Chuy Batista MD [address] [place] [address] PCP - General Family Medicine 07/11/14 documented as of this encounter
--- OUTSIDE RECORDS SUMMARY | 2023-10-09 21:49 | External Medical Summary | Summary of Care ---
Author Name Unknown Organization [facility] Address [address] [place] [address] Phone [phone] Care Team Providers Care Holistic Health Practitioner Name Role Phone Chuy Batista MD Primary Care Provider +1- [phone] Encounter Details Date Type Department Care Team (Late st Contact Info) Description 10/06/2023 Telephone [facility] [address] [place] [address] Chuy Batista MD [address] [place] [address] Allergies Active Allergy Reactions Criticality Noted Date Comments Chocolate Diarrhea 05/14/2023 Clindamycin Hcl 09/24/2005 rash Iodinated Contrast Media 10/01/2015 Ioversol Other (Please comment) High 08/10/[address] IV DYE documented as of this encounter (statuses as of 10/08/2023) Medications Medication Sig Dispensed Refills Start Date [...] Oral Capsule Take by mouth. 0 Active Sennosides-Docus ate Sodium 8.6-50 MG [...] morning. 30 Capsule 1 09/14/2023 Active Nystatin 069532 UNIT/ML Mouth/Throat Suspension 0 09/27/2023 Active amLODIPine Besylate 5 MG Oral Tablet (Norvasc) Take 1 Tablet by mouth in the morning. 0 09/10/2023 Active Ipratropium-Albu terol 0.5-2.5 (3) MG/3ML Inhalation Solution (Duoneb) Inhale 3 mL by mouth every 6 hours as needed. 0 Active documented as of this encounter (statuses as of 10/08/2023) Active Problems Problem Noted Date Diagnosed Date [...] as of this encounter (statuses as of 10/08/2023) Resolved Problems Problem Noted Date Diagnosed Date [...] as of this encounter (statuses as of 10/08/2023) Immunizations Name Administration Dates Next Due COVID-19 mRNA, LNP-s, No Pre serve, 2-Dose Series ([employer]) 05/30/2021,10/29/2020,10/08/2020 COVID-19, LNP-s, No Preserve , Prosper-sucrose, [...] encounter Miscellaneous Notes * Telephone Encounter - Asia Gil LPN - 10/08/2023 3:08 PM EST Patient's calling, she is very upset that Dr. Batista has not signed his office visit notes. She stated she feels they are being ignored, assured her this is not the case, that Dr. Batistahas been seeing patients all day and as soon as he can he will sign office notes. * Telephone Encounter - Damari Benitez LPN - 10/08/2023 10:26 AM EST calling they have been waiting for hospital bed orders. Their bed is upstair he is unable to climb steps to get to bed. He needs the hospital bed RAYMUNDO. Please complete OV notes from 09/28 so orders can be completed. * Telephone Encounter - Shauna Mc LPN - 10/07/2023 11:45 AM EST Waiting on OV note from 09/28/23 to be signed * Telephone Encounter - Lillian Gomez OSA - 10/07/2023 10:23 AM EST Pt is calling in needs pcp to call [facility] to speak with them regarding hospital bed Their phone number is [phone] * Telephone Encounter - Chuy Batista MD - 10/06/2023 1:31 PM EST Orders for hospital bed and rollator walker entered documented in this encounter Plan of Treatment Upcoming Encounters Date Type Department Care Team (Late st Contact Info) Description 10/13/2023 12:00 PM EST Laboratory Laboratory, [place] [address] [place] [phone] [facility] [address] [place] [address] 10/29/2023 11:15 AM EDT Office Visit Urology, [place] [address] [place] [address] Ernesto Villareal MD [address] [place] [address] 11/03/2023 11:15 AM EDT Office Visit Hematology/Oncology [facility] [address] [place] [phone] Xavi Gramajo MD [address] [place] [address] 11/08/2023 1:00 PM EDT Office Visit Cardiology, [facility] [address] [place] [address] Zak Rubio, DO [address] [place] [address] 11/09/2023 2:30 PM EDT Office Visit Otolaryngology [facility] [address] [facility] [place] [address] Dioni Jean-Baptiste DO [address] [place] [address] 11/26/2023 2:20 PM EDT Office Visit Neurology [facility] [address] [place] [address] Ellie Duncan MD [address] [place] [address] 11/29/2023 1:00 PM EDT Office Visit [facility] [address] [place] [address] Deondre Hill MD [address] [place] [address] 12/16/2023 4:30 PM EDT Office Visit Sleep Disorders Ctr [facility] [address] [place] [phone] Radha Caballero CRNP [address] [facility] [place] [address] 04/21/2024 2:40 PM EDT Office Visit [facility] [address] [place] [address] Chuy Batista MD [address] [place], [place] [phone] Health Maintenance Due Date Last Done Comments Albumin/Creatinine Ratio 1963 DTaP,Tdap,and Td Vaccines (1 - Tdap) 1964 Depression Screening 04/29/2021 04/29/2020 COVID-19 Vaccine (5 - 2022-24 season) 2023 02/11/2022, 02/11/2022, 05/30/2021, Additional history exists Influenza Vaccine (FLU shot) (#1) 2023 05/29/2022, 05/27/2021, 06/13/2020, Additional history exists GFR 04/05/2024 10/06/2023, 08/18, 09/13/2023, Additional history exists CKD PHOS USE SMARTSET 44151 09/11/202408/17, 09/11/2023, 07/14/2021, Additional history exists CKD HGB USE SMARTSET 23143 10/06/202410/06, 10/06/2023, 09/14/2023, Additional history exists Pneumococcal [...] Diagnosis Urothelial carcinoma of bladder (HCC)- Primary Muscular deconditioning Muscular wasting and disuse atrophy, not elsewhere classified Moderate protein-calorie malnutrition (HCC) Malnutrition of moderate degree Prostate cancer (HCC) Malignant neoplasm of prostate documented in this encounter Advance Directives Latest [...] the patient have Health Care Power of Materials Branch Chief? No Care Teams Holistic Health Practitioner Relationship Specialty Start Date End Date Chuy Batista MD [address] [place] [address] PCP - General Family Medicine 07/11/14 documented as of this encounter
--- OUTSIDE RECORDS SUMMARY | 2023-10-09 21:49 | External Medical Summary | Summary of Care ---
Author Name Unknown Organization [facility] Address [address] [facility] [place] [address] Phone [phone] Care Team Providers Care Software Engineer Backend Name Role Phone Chuy Batista MD Primary Care Provider +1- [phone] Reason for Visit * Reason Onset Date Comments Test Results Lab 10/07/2023 Encounter Details Date Type Department Care Team (Late st Contact Info) Description 10/07/2023 Telephone Hematology/Oncology [facility] [place] [address] [facility] [place] [phone] Enoc Gramajo MD [address] [facility] [place] [address] Test Results Lab Allergies Active Allergy Reactions [...] morning. 30 Capsule 1 09/14/2023 Active Nystatin 903984 UNIT/ML Mouth/Throat Suspension 0 09/27/2023 Active amLODIPine [...] mRNA, LNP-s, No Pre serve, 2-Dose Series ([employer]) 05/30/2021,10/29/2020,10/08/2020 COVID-19, LNP-s, No Preserve , Prosper-sucrose, [...] encounter Miscellaneous Notes * Telephone Encounter - Kailee Montgomery LPN - 10/08/2023 8:48 AM EST Appt added * Addendum Note - Jeff Shannon RN - 10/07/2023 4:33 PM ESTAddended by: JEFF SHANNON on: 10/07/2023 04:33 PM Modules accepted: Orders * Telephone Encounter - Jeff Shannon RN - 10/07/2023 4:29 PM EST Ivet returned call. Verbalized understanding. Scheduling: please add lab appt at [facility] on Friday 10/13 around noon "CBCd, CMP, trop, CK". Patients is aware. Thanks! * Telephone Encounter - Sarah Valle OSA - 10/07/2023 4:15 PM EST Patient returned call transferred to oncology * Telephone Encounter - Jeff Shannon RN - 10/07/2023 4:11 PM EST Attempted to call patient again. No answer, no voicemail. * Telephone Encounter - Jeff Shannon RN - 10/07/2023 10:49 AM EST [...] once a day. * Telephone Encounter - Jeff Shannon RN - 10/07/2023 9:13 AM EST [...] Description 10/13/2023 12:00 PM EST Laboratory Laboratory, [place] [address] [place] [address] [place], [facility] [address] [place] [address] 10/29/2023 11:15 AM EDT Office Visit Urology, [place] [address] [place] [address] Ernesto Villareal MD [address] [place] [address] 11/03/2023 11:15 AM EDT Office Visit Hematology/Oncology [facility] [place], [place] [phone] Enoc Gramajo MD [address] [facility] [place] [address] 11/08/2023 1:00 PM EDT Office Visit Cardiology, [facility] [place] [address] Zak Rubio, DO [address] [place] [address] 11/09/2023 2:30 PM EDT Office Visit Otolaryngology [facility] 132 [facility] [place] [address] Dioni Jean-Baptiste DO 132 [facility] [place] [address] 11/26/2023 2:20 PM EDT Office Visit Neurology [facility] [address] [facility] [place] [address] Ellie Duncan MD 200 [facility] [place], [place] [address] 11/29/2023 1:00 PM EDT Office Visit [place] [address] [place] [phone] Deondre Hill MD [address] [place] [address] 12/16/2023 4:30 PM EDT Office Visit Sleep Disorders Ctr [facility] 132 [facility] [place] [phone] Radha Caballero CRNP [address] [place] [address] 04/21/2024 2:40 PM EDT Office Visit [facility] [address] [place] [address] Chuy Batista MD [address] [place] [facility] [place] [address] Scheduled Orders Name Type Priority Associated Diagnoses Orde r Schedule CBC WITH WBC DIFFERENTIAL Lab STAT Urothelial carcinoma of bladder (HCC) Other acute myocarditis Every Week for 20 Occurrences starting 10/07/2023 until 10/07/2024 COMPREHENSIVE METABOLIC PANEL Lab STAT Urothelial carcinoma of bladder (HCC) Other acute myocarditis Every Week for 20 Occurrences starting 10/07/2023 until 10/07/2024 TROPONIN T, HIGH SENSITIVITY Lab STAT Urothelial carcinoma of bladder (HCC) Other acute myocarditis Every Week for 20 Occurrences starting 10/07/2023 until 10/07/2024 CK Lab STAT Urothelial carcinoma of bladder (HCC) Other acute myocarditis Every Week for 20 Occurrences starting 10/07/2023 until 10/07/2024 Health Maintenance Due Date Last Done Comments Albumin/Creatinine Ratio 1963 DTaP,Tdap,and Td Vaccines (1 - Tdap) 1965 Depression Screening 04/29/2021 04/29/2020 COVID-19 Vaccine (5 - 2022- season) 2023 02/11/2022, 02/11/2022, 05/30/2021, Additional history exists Influenza Vaccine (FLU shot) (#1) 2023 05/29/2022, 05/27/2021, 06/13/2020, Additional history exists GFR 04/05/2024 10/06/2023, 08/18, 09/13/2023, Additional history exists CKD PHOS USE SMARTSET 95487 09/11/202408/17, 09/11/2023, 07/14/2021, Additional history exists CKD HGB USE SMARTSET 56574 10/06/202410/06, 10/06/2023, 09/14/2023, Additional history exists Pneumococcal [...] the patient have Health Care Power of Lime Puller? No Care Teams Software Engineer Backend Relationship Specialty Start Date End Date Chuy Batista MD [address] [place] [address] PCP - General Family Medicine 07/11/14 documented as of this encounter
--- OUTSIDE RECORDS SUMMARY | 2023-10-09 21:49 | External Medical Summary | Summary of Care ---
Author Name Unknown Organization [facility] Address [address] [place] [address] Phone [phone] Care Team Providers Care Incinerator Plant Supervisor Name Role Phone Arnold Willis MD Primary Care Provider +1- [phone] Reason for Referral * Evaluate & Treat - Unlimited Visits (Within 30 days (routine)) - Pending Review Specialty Diagnoses / Procedures Referred By Monik de leon Referred To Contact Hematology/Oncology / Hematology Oncology Diagnoses Malignant neoplasm of urinary bladder, unspecified site (HCC) Arnold Willis MD [address] [place] [address] Referral ID Status Reason Start Date Expiration Date Visits Requested Visits Authorized [id number] Pending Review Specialty Services Required 09/28/2023 999 [...] site (HCC) Arnold Willis MD [address] [place] [address] Referral ID Status Reason Start Date Expiration Date Visits Requested Visits Authorized [id number] Pending Review Specialty Services Required 09/28/2023 999 999 Question Answer Referral Priority Within 30 days (routine) Where should this appointment be scheduled? [facility] What is the patient being referred for? Cancer Comments Bladder and Prostate Cancer Reason for Visit * Reason Onset Date Comments Follow Up From being in [facility] care after discharge from hospitalShort of breath Diarrhea smelly and a lot of gas Hospital Follow-Up 10/09/2023 Encounter Details Date Type Department Care Team (Latest Contact Info) Description 09/28/2023 2:00 PM EST Office Visit [facility] [address] [place] [address] Arnold Willis MD [address] [place] [address] Malignant neoplasm of urinary bladder, [...] morning. 30 Capsule 1 4 Active Nystatin 462691 UNIT/ML Mouth/Throat Suspension 0 4 Active amLODIPine [...] only. 20 Tablet 0 4 10/06/19 24 Discontinued(La dication List Clean Up) documented as of [...] mRNA, LNP-s, No Pre serve, 2-Dose Series ([employer]) 05/30/2021,10/29/2020,10/08/2020 COVID-19, LNP-s, No Preserve , Prosper-sucrose, [...] - 09/28/2023 3:05 PM EST Subjective: Branden iHgh is a 78 year old male here today for Chief Complaint Patient presents with Follow Up From being in [place] care after discharge from hospital Short of breath Diarrhea smelly and a lot of gas Pt presents for hospital follow up. He was admitted to [facility] 09/06/23 - 09/10/23. [facility] 09/10/23-09/11/23 and [facility] 08/2723-09/14/23. Patient has a history of bladder [...] ejection fraction of 60 to 65% with iiqm-xr-beeujmog aortic valve stenosis but no significant change compared to previous. Symptoms were felt concerning for pulmonary embolism. Patient unable to have CT scan with contrast.Was unable to get vq at [facility], so was transferred to [place]. The V/Q scan returned low probability for pulmonary embolism. 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 For that reason, he was transferred to [facility]. Cardiac MRI confirmed myocarditis. Started on 1 [...] ANDRZEJ (obstructive sleep apnea) 08/19/2018 Prostate cancer ([facility]) Past Surgical History: Procedure Laterality Date [...] Ellipta 200-62.5-25 MCG/ACT Aerosol Powder Breath Activated (Jieigdhnaek-Ckqyfiumiwom-Zvbeclimfl) Inhale 1 Puff by mouth every evening. [...] mouth in the morning. 30Capsule 1 Nystatin 456156 UNIT/ML Mouth/Throat Suspension amLODIPine Besylate 5 MG [...] Pt requesting appt with Dr Gramajo of [facility] oncology for an opinion on careand future treatments. Continued follow up with oncology and urology. -Pt requesting an appointment with Dr Villareal in the urology department at [facility]. Diarrhea, unspecified type - CLOSTRIDIUM DIFFICILE, PCR; [...] presents with Follow Up From being in [place] care after discharge from hospital Short of breath documented in this encounter Miscellaneous Notes * Addendum Note - Arnold Willis MD - 10/09/2023 8:24 AM ESTAddended by: ARNOLD WILLIS on: 10/09/2023 08:24 AM Modules accepted: Orders documented in this encounter Plan of Treatment Upcoming Encounters Date Type Department Care Team (Late st Contact Info) Description 10/13/2023 12:00 PM EST Laboratory Laboratory, [place] [address] [place] [address] [place] [address] [place] [address] 10/29/2023 11:15 AM EDT Office Visit Urology, [place] [address] [place] [address] Ernesto Villareal MD [address] [place] [address] 11/03/2023 11:15 AM EDT Office Visit Hematology/Oncology [facility] [place] 200 [facility] [place] [address] Xavi Gramajo MD 200 [facility] [place] [address] 11/08/2023 1:00 PM EDT Office Visit Cardiology, [facility] [address] [place] [address] Zak Rubio, DO [address] [place] [address] 11/09/2023 2:30 PM EDT Office Visit Otolaryngology [facility] [address] [place] [address] Dioni Jean-Baptiste, DO [address] [place] [address] 11/26/2023 2:20 PM EDT Office Visit Neurology [facility] 200 [facility] [place] [address] Ellie Duncan MD 200 [facility] [place] [address] 11/29/2023 1:00 PM EDT Office Visit [place] [address] [place] [address] Deondre Hill MD [address] [place], [place] [address] 12/16/2023 4:30 PM EDT Office [facility] [address] [place] [phone] Radha Caballero CRNP [facility] [place] [address] 04/21/2024 2:40 PM EDT Office Visit [facility] [address] [place] [phone] Arnold Willis MD [address] [place], [place] [address] Scheduled Referrals Name Type Priority Associated Diagnoses [...] Additional history exists CKD PHOS USE SMARTSET 82061 09/11/202408/17, 09/11/2023, 07/14/2021, Additional history exists CKD HGB USE SMARTSET 05485 10/06/202410/06, 10/06/2023, 09/14/2023, Additional history exists Pneumococcal [...] Consistency Semi-formed 09/30/2023 11:29 PM EST LABORATORY [facility] Clostridium difficile Result Negative. No C. difficile toxin B gene DNA detected by PCR (Amplified Probe). Negative 09/30/2023 11:29 PM EST LABORATORY [facility] Stool Stool specimen / Unknown Non-blood Collection / Unknown 09/30/2023 11:05 AM EST 09/30/2023 11:06 AM EST Arnold Willis MD LAB MICRO - GENERA L ORDERABLES LABORATORY [facility] [address] [place] [address] documented in this encounter Visit Diagnoses Diagnosis [...] the patient have Health Care Power of Medical Reception Specialist? No Care Teams Incinerator Plant Supervisor Relationship Specialty Start Date End Date Arnold Willis MD [address] [place] [address] PCP - General Family Medicine 07/11/14 documented as of this encounter
--- OUTSIDE RECORDS SUMMARY | 2023-10-09 21:49 | External Medical Summary | Summary of Care ---
Author Name Unknown Organization [facility] Address [address] [facility] [place] [address] Phone [phone] Care Team Providers Care Spot Remover Name Role Phone Chuy Batista MD Primary Care Provider +1- [phone] Reason for Visit * Reason Onset Date Comments Test Results Lab 10/07/2023 Encounter Details Date Type Department Care Team (Late st Contact Info) Description 10/07/2023 Telephone Hematology/Oncology [facility] [place] 200 [facility] [place] [phone] Enoc Gramajo MD 200 [facility] [place] [address] Test Results Lab Allergies Active Allergy Reactions [...] morning. 30 Capsule 1 09/14/2023 Active Nystatin 891130 UNIT/ML Mouth/Throat Suspension 0 09/27/2023 Active amLODIPine [...] mRNA, LNP-s, No Pre serve, 2-Dose Series ([employer]) 05/30/2021,10/29/2020,10/08/2020 COVID-19, LNP-s, No Preserve , Prosper-sucrose, [...] as of this encounter Miscellaneous Notes * Addendum Note - Jeff Shannon RN - 10/07/2023 4:33 PM ESTAddended by: JEFF SHANNON on: 10/07/2023 04:33 PM Modules accepted: Orders * Telephone Encounter - Jeff Shannon RN - 10/07/2023 4:29 PM EST Ivet returned call. Verbalized understanding. Scheduling: please add lab appt at [facility] on Friday 10/13 around noon "CBCd, CMP, [...] 10/29/2023 11:15 AM EDT Office Visit Urology, [place] [address] [place] [address] Ernesto Villareal MD [address] [place] [address] 11/03/2023 11:15 AM EDT Office Visit Hematology/Oncology [facility] 200 [facility] [place] [address] Enoc Gramajo MD 200 [facility] [place] [address] 11/08/2023 1:00 PM EDT Office Visit Cardiology, [facility] [address] [place] [address] Zak Rubio, [address] [place] [id number] 11/09/2023 2:30 PM EDT Office Visit Otolaryngology [facility] [address] [facility] [place] [address] iDoni Jean-Baptiste DO [address] [place] [address] 11/26/2023 2:20 PM EDT Office Visit Neurology [facility] 200 [facility] [place] [address] Ellie Duncan MD 200 [facility] [place] [address] 11/29/2023 1:00 PM EDT Office Visit [address] [place] [address] Deondre Hill MD [address] [place] [facility] [address] 12/16/2023 4:30 PM EDT Office Visit [facility] Ctr [facility] [place] [phone] Radha Caballero CRNP 132 [facility] [place] [address] 04/21/2024 2:40 PM EDT Office Visit [facility] [address] [place] [address] Chuy Batista MD [address] [facility] [place] [phone] Scheduled Orders Name Type Priority Associated Diagnoses [...] Additional history exists CKD PHOS USE SMARTSET 66526 09/11/202408/17, 09/11/2023, 07/14/2021, Additional history exists CKD HGB USE SMARTSET 62939 10/06/202410/06, 10/06/2023, 09/14/2023, Additional history exists Pneumococcal [...] the patient have Health Care Power of Paper Machine Tender? No Care Teams Spot Remover Relationship Specialty Start Date End Date Chuy Batista MD [address] [place] [address] PCP - General Family Medicine 07/11/14 documented as of this encounter
--- OUTSIDE RECORDS SUMMARY | 2023-10-09 21:49 | External Medical Summary | Summary of Care ---
Author Name Unknown Organization [facility] Address [address] [place] [address] Phone [phone] Care Team Providers Care Compliance Clerk Name Role Phone Chuy Batista MD Primary Care Provider +1- [phone] Encounter Details Date Type Department Care Team (Late st Contact Info) Description 10/06/2023 Telephone [facility] [address] [place] [address] Chuy Batista MD [address] [place] [address] Allergies Active Allergy Reactions Criticality [...] morning. 30 Capsule 1 09/14/2023 Active Nystatin 268723 UNIT/ML Mouth/Throat Suspension 0 09/27/2023 Active amLODIPine [...] encounter Miscellaneous Notes * Telephone Encounter - Damari Benitez LPN [...] is calling in needs pcp to call [facility] care to speak with them regarding hospital bed Their phone number is [phone] * Telephone Encounter - Chuy Batista MD - 10/06/2023 1:31 PM EST Orders for hospital bed and rollator walker entered documented in this encounter Plan of Treatment Upcoming Encounters Date Type Department Care Team (Late st Contact Info) Description 10/13/2023 12:00 PM EST Laboratory Laboratory, [place] [address] [place] [address] [place] [address] [place] [address] 10/29/2023 11:15 AM EDT Office Visit Urology, [place] [address] [place] [address] Ernesto Villareal MD [address] [place] [address] 11/03/2023 11:15 AM EDT Office Visit Hematology/Oncology [facility] 200 [facility] [phone] Xavi Gramajo MD [address] [place] [address] 11/08/2023 1:00 PM EDT Office Visit Cardiology, [facility] [address] [place] [address] Zak Rubio, DO [address] [place] [address] 11/09/2023 2:30 PM EDT Office Visit Otolaryngology [facility] 132 [place] [address] Dioni Jean-Baptiste, DO [address] [place] [address] 11/26/2023 2:20 PM EDT Office Visit Neurology [facility] 200 [facility] [place], [place] [address] Ellie Duncan MD [address] [place] [address] 11/29/2023 1:00 PM EDT Office Visit Family [facility] [address] [place] [address] Deondre Hill MD [address] [place] [address] 12/16/2023 4:30 PM EDT Office Visit [facility] Ctr [facility] [address] [place] [phone] Radha Caballero CRNP [address] [place] [address] 04/21/2024 2:40 PM EDT Office Visit [facility] [address] [facility] [phone] Chuy Batista MD [address] [place] [address] Health Maintenance Due Date Last Done Comments Albumin/Creatinine Ratio 1963 DTaP,Tdap,and Td Vaccines (1 - Tdap) 1964 Depression Screening 04/29/2021 04/29/2020 COVID-19 Vaccine (5 - season) 2023 02/11/2022, 02/11/2022, 05/30/2021, Additional history exists Influenza Vaccine (FLU shot) (#1) 2023 05/29/2022, 05/27/2021, 06/13/2020, Additional history exists GFR 04/05/2024 10/06/2023, 08/18, 09/13/2023, Additional history exists CKD PHOS USE SMARTSET 73131 09/11/202408/17, 09/11/2023, 07/14/2021, Additional history exists CKD HGB USE SMARTSET 86953 10/06/202410/06, 10/06/2023, 09/14/2023, Additional history exists Pneumococcal [...] the patient have Health Care Power of Bread Jockey? No Care Teams Compliance Clerk Relationship Specialty Start Date End Date Chuy Batista MD [address] [place] [address] PCP - General Family Medicine 07/11/14 documented as of this encounter
--- OUTSIDE RECORDS SUMMARY | 2023-10-09 21:49 | External Medical Summary | Summary of Care ---
Author Name Unknown Organization [facility] Address [address] [place] [address] Phone [phone] Care Team Providers Care Anesthesia Attending Name Role Phone Chuy Batista MD Primary Care Provider +1- [phone] Reason for Visit * Reason Onset Date Comments Advice 10/06/2023 Patient spouse c alling to get clarification on Hospital bed script Encounter Details Date Type Department Care Team (Late st Contact Info) Description 10/06/2023 Telephone [facility] [address] [place] [address] Chuy Batista MD [address] [place] [address] Advice (Patient spouse calling to get clar... Allergies Active Allergy Reactions Criticality Noted Date [...] morning. 30 Capsule 1 09/14/2023 Active Nystatin 102825 UNIT/ML Mouth/Throat Suspension 0 09/27/2023 Active amLODIPine [...] mRNA, LNP-s, No Pre serve, 2-Dose Series ([employer]) 05/30/2021,10/29/2020,10/08/2020 COVID-19, LNP-s, No Preserve , Prosper-sucrose, [...] (15 years old or older) Yes 09/12/19 24 Cognitive Status Response Date of Assessm ent Because of a physical, menta l, or emotional condition, do you have serious difficulty concentrating, remembering, or making decisions? (5 years old or older) Yes 09/12/2023 documented as of this encounter Miscellaneous Notes * Telephone Encounter - Damari Benitez LPN - 10/08/2023 10:24 AM EST Addressed another encounter. * Telephone Encounter - Nicolasa Carlton OSA - 10/08/2023 10:20 AM EST Patient spouse is calling in to get clarification on a script for a hospital bed that they are trying to get. documented in this encounter Plan of Treatment Upcoming Encounters Date Type Department Care Team (Late st Contact Info) Description 10/13/2023 12:00 PM EST Laboratory Laboratory, [place] [address] [place] [address] [place] [address] [place] [address] 10/29/2023 11:15 AM EDT Office Visit Urology, [place] [address] [place] [address] Ernesto Villareal MD [address] [place] [address] 11/03/2023 11:15 AM EDT Office Visit Hematology/Oncology [facility] [place] [place] [address] [place] [phone] Xavi Gramajo MD [address] [place] [address] 11/08/2023 1:00 PM EDT Office Visit Cardiology, [facility] [address] [facility] [place], [place] [address] Zak Rubio, DO [facility] [place] [address] 11/09/2023 2:30 PM EDT Office Visit Otol[facility]ology [facility] [place] [address] Dioni Jean-Baptiste, DO [facility] [place] [address] 11/26/2023 2:20 PM EDT Office Visit Neurology [facility] 200 [facility] [place] [address] Ellie Duncan MD 200 [facility] [place] [address] 11/29/2023 1:00 PM EDT Office Visit [address] [phone] Deondre Hill MD [address] [place] [address] 12/16/2023 4:30 PM EDT Office Visit Sleep Disorders Ctr [facility] [phone] Radha Caballero CRNP [facility] [place] [address] 04/21/2024 2:40 PM EDT Office Visit [place] [address] [place] [phone] Chuy Batista MD [address] [place] [address] Health Maintenance Due Date Last Done Comments Albumin/Creatinine Ratio 1963 DTaP,Tdap,and Td Vaccines (1 - Tdap) 1964 Depression Screening 04/29/2021 04/29/2020 COVID-19 Vaccine (5 - 2022-24 season) 2023 02/11/2022, 02/11/2022, 05/30/2021, Additional history exists Influenza Vaccine (FLU shot) (#1) 2023 05/29/2022, 05/27/2021, 06/13/2020, Additional history exists GFR 04/05/2024 10/06/2023, 08/18, 09/13/2023, Additional history exists CKD PHOS USE SMARTSET 80560 09/11/202408/17, 09/11/2023, 07/14/2021, Additional history exists CKD HGB USE SMARTSET 88208 10/06/202410/06, 10/06/2023, 09/14/2023, Additional history exists Pneumococcal [...] as of this encounter Visit Diagnoses Diagnosis ANDRZEJ (obstructive sleep apnea)- Primary Obstructive sleep apnea (adult) (pediatric) documented in this encounter Advance Directives Latest [...] the patient have Health Care Power of Store Custodian? No Care Teams Anesthesia Attending Relationship Specialty Start Date End Date Chuy Batista MD [address] [place] [address] PCP - General Family Medicine 07/11/14 documented as of this encounter
--- OUTSIDE RECORDS SUMMARY | 2023-10-09 21:49 | External Medical Summary | Summary of Care ---
Author Name Unknown Organization [facility] Address [address] [place] [address] Phone [phone] Care Team Providers Care Onion Tier Name Role Phone Chuy Batista MD Primary Care Provider +1- [phone] Encounter Details Date Type Department Care Team (Late st Contact Info) Description 10/06/2023 Telephone [facility] [address] [place] [address] Chuy Batista MD [address] [place] [address] Allergies Active Allergy Reactions Criticality [...] morning. 30 Capsule 1 09/14/2023 Active Nystatin 803007 UNIT/ML Mouth/Throat Suspension 0 09/27/2023 Active amLODIPine [...] climb steps to get to bed. He need the hospital bed RAYMUNDO. Please complete OV notes from 09/28 so orders can be completed. * Telephone Encounter - Shauna Mc LPN - 10/07/2023 11:45 AM EST Waiting on OV note from 09/28/23 to be signed * Telephone Encounter - Lillian Gomez OSA - 10/07/2023 10:23 AM EST Pt is calling in needs pcp to call [facility] to speak with them regarding hospital bed Their phone number is [phone] * Telephone Encounter - Chuy Batista MD - 10/06/2023 1:31 PM EST Orders for hospital bed and rollator walker entered documented in this encounter Plan of Treatment Upcoming Encounters Date Type Department Care Team (Late st Contact Info) Description 10/13/2023 12:00 PM EST Laboratory Laboratory, [place] [address] [place] [place] [phone] [place] [address] [place] [address] 10/29/2023 11:15 AM EDT Office Visit Urology, [place] [address] [place] [address] Ernesto Villareal MD [address] [place] [address] 11/03/2023 11:15 AM EDT Office Visit Hematology/Oncology [facility] 200 [facility] [place] [phone] Xavi Gramajo MD [address] [place] [address] 11/08/2023 1:00 PM EDT Office Visit Cardiology, [facility] [address] [place] [address] Zak Rubio, DO [address] [place] [address] 11/09/2023 2:30 PM EDT Office Visit Otolaryngology [facility] 132 [place] [address] Dioni Jean-Baptiste, DO [address] [place] [address] 11/26/2023 2:20 PM EDT Office Visit Neurology [facility] [address] [facility] [place], [place] [address] Ellie Duncan MD [address] [place] [address] 11/29/2023 1:00 PM EDT Office Visit Family [facility] [address] [place] [phone] Deondre Hill MD [address] [place] [address] 12/16/2023 4:30 PM EDT Office Visit Sleep Disorders Ctr [facility] [address] [place] [phone] Radha Caballero CRNP [address] [place] [address] 04/21/2024 2:40 PM EDT Office Visit [facility] [address] [facility] [phone] Chuy Batista MD [address] [place] [address] Health Maintenance Due Date Last Done Comments Albumin/Creatinine Ratio 1963 DTaP,Tdap,and Td Vaccines (1 - Tdap) 1964 Depression Screening 04/29/2021 04/29/2020 COVID-19 Vaccine (5 - season) 2023 02/11/2022, 02/11/2022, 05/30/2021, Additional history exists Influenza Vaccine (FLU shot) (#1) 2023 05/29/2022, 05/27/2021, 06/13/2020, Additional history exists GFR 04/05/2024 10/06/2023, 08/18, 09/13/2023, Additional history exists CKD PHOS USE SMARTSET 46700 09/11/202408/17, 09/11/2023, 07/14/2021, Additional history exists CKD HGB USE SMARTSET 16980 10/06/202410/06, 10/06/2023, 09/14/2023, Additional history exists Pneumococcal [...] the patient have Health Care Power of Machine Design Checker? No Care Teams Onion Tier Relationship Specialty Start Date End Date Chuy Batista MD [address] [place] [address] PCP - General Family Medicine 07/11/14 documented as of this encounter
--- OUTSIDE RECORDS SUMMARY | 2023-10-09 21:49 | External Medical Summary | Summary of Care ---
Author Name Unknown Organization [facility] Address [address] [place] [address] Phone [phone] Care Team Providers Care Hydrographic Surveyor Name Role Phone Chuy Batista MD Primary Care Provider +1- [phone] Reason for Visit * Reason Onset Date Comments Advice 10/06/2023 Patient spouse c alling to get clarification on Hospital bed script Encounter Details Date Type Department Care Team (Late st Contact Info) Description 10/06/[address] [facility] [address] [place] [address] Chuy Batista MD [address] [place] [address] Advice (Patient spouse calling to [...] morning. 30 Capsule 1 09/14/2023 Active Nystatin 935422 UNIT/ML Mouth/Throat Suspension 0 09/27/2023 Active amLODIPine [...] mRNA, LNP-s, No Pre serve, 2-Dose Series ([employer]) 05/30/2021,10/29/2020,10/08/2020 COVID-19, LNP-s, No Preserve , [...] Description 10/13/2023 12:00 PM EST Laboratory Laboratory, [place] [address] [place] [address] [place] [address] [place] [address] 10/29/2023 11:15 AM EDT Office Visit Urology, [place] [address] [place] [address] Ernesto Villareal MD [address] [place] [address] 11/03/2023 11:15 AM EDT Office Visit Hematology/Oncology [facility] [place] [address] [place] [phone] Xavi Gramajo MD [address] [place] [address] 11/08/2023 1:00 PM EDT Office Visit Cardiology, [facility] [address] [facility] [place], [place] [address] Zak Rubio, DO [address] [facility] [address] 11/09/2023 2:30 PM EDT Office Visit Otolaryngology [facility] [address] [facility] [address] Dioni Jean-Baptiste, DO [facility] [place] [address] 11/26/2023 2:20 PM EDT Office Visit Neurology [facility] [address] [facility] [place] [address] Ellie Duncan MD [address] [facility] [place] [address] 11/29/2023 1:00 PM EDT Office Visit [address] [phone] Deondre Hill MD [address] [place] [address] 12/16/2023 4:30 PM EDT Office Visit Sleep Disorders Ctr [facility] [address] [facility] [place] [phone] Radha Caballero CRNP [facility] [place] [address] 04/21/2024 2:40 PM EDT Office Visit [place] [address] [place] [phone] Chuy Batista MD [address] [place] [address] Health Maintenance Due Date Last Done Comments Albumin/Creatinine Ratio 1963 DTaP,Tdap,and Td Vaccines (1 - Tdap) 1964 Depression Screening 04/29/2021 04/29/2020 COVID-19 Vaccine (5 - 2022-24 season) 2023 02/11/2022, 02/11/2022, 05/30/2021, Additional history exists Influenza Vaccine (FLU shot) (#1) 2023 05/29/2022, 05/27/2021, 06/13/2020, Additional history exists GFR 04/05/2024 10/06/2023, 08/18, 09/13/2023, Additional history exists CKD PHOS USE SMARTSET 28444 09/11/202408/17, 09/11/2023, 07/14/2021, Additional history exists CKD HGB USE SMARTSET 44543 10/06/202410/06, 10/06/2023, 09/14/2023, Additional history exists Pneumococcal [...] patient have Health Care Power of Director Print? No Care Teams Hydrographic Surveyor Relationship Specialty Start Date End Date Chuy Batista MD [address] [place] [address] PCP - General Family Medicine 07/11/14 documented as of this encounter
--- OUTSIDE RECORDS SUMMARY | 2023-10-09 21:50 | External Medical Summary | Summary of Care ---
Author Name Unknown Organization [facility] Address [address] [facility] [place] [address] Phone [phone] Care Team Providers Care Hobbing Press Operator Name Role Phone Chuy Batista MD Primary Care Provider +1- [phone] Reason for Visit * Reason Onset Date Comments Test Results Lab 10/07/2023 Encounter Details Date Type Department Care Team (Late st Contact Info) Description 10/07/2023 Telephone Hematology/Oncology [facility] [place] [address] [facility] [place] [phone] Enoc Gramajo MD [address] [facility] [place] [address] Test Results Lab Allergies Active Allergy Reactions [...] morning. 30 Capsule 1 09/14/2023 Active Nystatin 323758 UNIT/ML Mouth/Throat Suspension 0 09/27/2023 Active amLODIPine [...] mRNA, LNP-s, No Pre serve, 2-Dose Series ([employer]) 05/30/2021,10/29/2020,10/08/2020 COVID-19, LNP-s, No Preserve , [...] encounter Miscellaneous Notes * Addendum Note - Enoc Gramajo MD [...] EDT Office Visit Urology, [place] [address] [place] [address] Ernesto Villareal MD [address] [place] [address] 11/03/2023 11:15 AM EDT Office Visit Hematology/Oncology [facility] [place] [address] [facility] [place] [phone] Enoc Gramajo MD [address] [facility] [place] [address] 11/08/2023 1:00 PM EDT Office Visit Cardiology, [facility] [address] [place] [address] Zak Rubio, DO [address] [place] [address] 11/09/2023 2:30 PM EDT Office Visit Otolaryngology [facility] [address] [place] [address] Dioni Jean-Baptiste, DO [address] [place] [address] 11/26/2023 2:20 PM EDT Office Visit Neurology [facility] 200 [place] [address] Ellie Duncan MD 200 [place] [address] 11/29/2023 1:00 PM EDT Office Visit [address] [place] [address] Deondre Hill MD [address] [place] [address] 12/16/2023 4:30 PM EDT Office Visit Sleep Disorders Ctr [facility] [address] [place] [phone] Radha Caballero CRNP [address] [facility] [place] [address] 04/21/2024 2:40 PM EDT Office Visit [facility] [address] [place] [address] Chuy Batista MD [address] [place], [place] [address] Health Maintenance Due Date Last Done Comments Albumin/Creatinine Ratio 1963 DTaP,Tdap,and Td Vaccines (1 - Tdap) 1964 Depression Screening 04/29/2021 04/29/2020 COVID-19 Vaccine (5 - 2022-24 season) 2023 02/11/2022, 02/11/2022, 05/30/2021, Additional history exists Influenza Vaccine (FLU shot) (#1) 2023 05/29/2022, 05/27/2021, 06/13/2020, Additional history exists GFR 04/05/2024 10/06/2023, 08/18, 09/13/2023, Additional history exists CKD PHOS USE SMARTSET 87937 09/11/202408/17, 09/11/2023, 07/14/2021, Additional history exists CKD HGB USE SMARTSET 18006 10/06/202410/06, 10/06/2023, 09/14/2023, Additional history exists Pneumococcal [...] the patient have Health Care Power of Story Writer? No Care Teams Hobbing Press Operator Relationship Specialty Start Date End Date Chuy Batista MD [address] [place] [address] PCP - General Family Medicine 07/11/14 documented as of this encounter
--- OUTSIDE RECORDS SUMMARY | 2023-10-09 21:50 | External Medical Summary | Summary of Care ---
Author Name Unknown Organization [facility] Address [address] [place] [address] Phone [phone] Care Team Providers Care Label Fuser Tender Name Role Phone Chuy Batista MD Primary Care Provider +1- [phone] Reason for Visit * Reason Onset Date Comments Appointment 10/04/2023 Orders for Hospi nicole bed and walker with seat Encounter Details Date Type Department Care Team (Late st Contact Info) Description 10/04/2023 Telephone [facility] [address] [place] [address] Chuy Batista MD [address] [place] [address] Appointment (Orders for Hospital bed and w... Allergies Active Allergy Reactions Criticality Noted Date Comments Chocolate Diarrhea 05/14/2023 Clindamycin Hcl 09/24/2005 rash Iodinated Contrast Media 10/01/2015 Ioversol Other (Please comment) High 08/10/[address] IV DYE documented as of this encounter (statuses as of 10/06/2023) Medications Medication Sig Dispensed Refills Start Date [...] ylaxis, sequela USE DIRECTED 1 Each 0 01/27/2023 Active Montelukast Sodium 10 MG Oral Tablet (Singulair)Denice cations:Chronic allergic rhinitis Take 1 Tablet by mouth in the morning. 90 Tablet 3 01/27/2023 Active Multi Adult Gummies Oral Tablet Chewable Take by mouth. 0 Activ e Vitamin D 125 MCG (5000 UT) Oral Capsule Take by mouth. 0 Active Sennosides-Docu sate Sodium 8.6-50 MG [...] morning. 30 Capsule 1 09/14/2023 Active Nystatin 341377 UNIT/ML Mouth/Throat Suspension 0 09/27/2023 Active amLODIPine Besylate 5 MG Oral Tablet (Norvasc) Take 1 Tablet by mouth in the morning. 0 09/10/2023 Active Sulfamethoxazol e-Trimethoprim 800-160 MG Oral Tablet (Bactrim DS) Take 1 Tablet by mouth once a day on Wednesday, Wednesday, and Wednesday only. 20 Tablet 0 09/15/2023 Discontinu ed(Medicat ion List Clean Up) documented as of this encounter (statuses as of 10/06/2023) Active Problems Problem Noted Date Diagnosed Date [...] as of this encounter (statuses as of 10/06/2023) Resolved Problems Problem Noted Date Diagnosed Date [...] as of this encounter (statuses as of 10/06/2023) Immunizations Name Administration Dates Next Due COVID-19 mRNA, LNP-s, No Pre serve, 2-Dose Series ([employer]) 05/30/2021,10/29/2020,10/08/2020 COVID-19, LNP-s, No Preserve , Prsoper-sucrose, Ages 12+ ([employer]) 02/11/2022 Pneumococcal Conjugate Vacc, 13 Valent (Prevnar) [...] encounter Miscellaneous Notes * Telephone Encounter - Shauna Mc LPN - 10/06/2023 2:34 PM EST Are you able to sign OV note from 09/28? If able, can you include need for hospital bed & walker? * Telephone Encounter - Ania Neal OSA - 10/06/2023 1:27 PM EST Patient's stopped by again today (10/06/2023) asking for orders for hospital bed and walker. Please advise. Patient's would like to go to [facility] to get this RAYMUNDO. Patient had an appointment with Dr. Gramajo and he refererd patient to [facility]. Dr. Gramajo thinks that [facility] can help him more than he can. Patient's had to call EMS to have them help get patient in the car to go to Dr. Gramajo's appointment this morning. 10/06/2023 * Telephone Encounter - Myranda Ya OSA - 10/05/2023 9:15 AM EST Verna calling from [facility] asking to speak with a nurse regarding supplies for pt. Transferred to nurse line Please call Verna back at [phone] * Telephone Encounter - Ania Neal OSA - 10/04/2023 11:35 AM EST Patient's came to front desk associate asking if patient can get an order for a hospital bed as they do not have a bathroom on the first floor. Patient has fell 3 times within 2 days. They have to have the neighbors come over to help him to the bathroom since he is so weak. She is looking for a hospital bed with an door to door lead generation bc of patient's height. Patient's is asking if this can be sent to [facility]. She is also asking if we can order a walker with a seat for patient so that he can get around. Thiswill have to be extra wide because he is so big. Patient's also states that they were to get an order for a CPAP machine and they have not heard anything and they are not sure what to do in order to get this new CPAP machine. Please advise. Thank you. documented in this encounter Plan of Treatment Upcoming Encounters Date Type Department Care Team (Late st Contact Info) Description 10/29/2023 11:15 AM EDT Office Visit Urology, [place] [address] [place] [address] Ernesto Villareal MD [address] [place] [address] 11/03/2023 11:15 AM EDT Office Visit Hematology/Oncology [facility] [address] [place] [phone] Xavi Gramajo MD 200 [facility] [place] [address] 11/08/2023 1:00 PM EDT Office Visit Cardiology, [facility] [place] [address] Zak Rubio DO [address] [place] [address] 11/09/2023 2:30 PM EDT Office Visit [facility]ol[facility]ology [facility] [place] [address] Dioni Jean-Baptiste DO [facility] [place] [address] 11/26/2023 2:20 PM EDT Office Visit Neurology [facility] [address] [facility] [place] [address] Ellie Duncan MD [address] [facility] [place] [address] 11/29/2023 1:00 PM EDT Office Visit [address] [address] Deondre Hill MD [address] [place] [address] 12/16/2023 4:30 PM EDT Office Visit Sleep Disorders Ctr [facility] 132 [facility] [place] [phone] Radha Caballero CRNP 132 [facility] [place] [address] 04/21/2024 2:40 PM EDT Office Visit [facility] [address] [place] [address] Chuy Batista MD [address] [place] [address] Health Maintenance Due Date Last Done Comments Albumin/Creatinine Ratio 1963 DTaP,Tdap,and Td Vaccines (1 - Tdap) 1964 Depression Screening 04/29/2021 04/29/2020 COVID-19 Vaccine (5 - 2022-24 season) 2023 02/11/2022, 02/11/2022, 05/30/2021, Additional history exists Influenza Vaccine (FLU shot) (#1) 2023 05/29/2022, 05/27/2021, 06/13/2020, Additional history exists GFR 04/05/2024 10/06/2023, 08/18, 09/13/2023, Additional history exists CKD PHOS USE SMARTSET 44353 09/11/202408/17, 09/11/2023, 07/14/2021, Additional history exists CKD HGB USE SMARTSET 49687 10/06/202410/06, 10/06/2023, 09/14/2023, Additional history exists Pneumococcal [...] Not on filedocumented as of this encounter Advance Directives Latest [...] the patient have Health Care Power of Flying Squad Worker? No Care Teams Label Fuser Tender Relationship Specialty Start Date End Date Chuy Batista MD [address] [place] [address] PCP - General Family Medicine 07/11/14 documented as of this encounter
--- OUTSIDE RECORDS SUMMARY | 2023-10-09 21:50 | External Medical Summary | Summary of Care ---
Author Name Unknown Organization [facility] Address [address] [facility] [place] [address] Phone [phone] Care Team Providers Care Weaving Inspector Name Role Phone Chuy Batista MD Primary Care Provider +1- [phone] Reason for Visit * Reason Onset Date Comments Appointment 10/07/2023 NEW CONSULTATION REFERRALS TO [facility] Encounter Details Date Type Department Care Team (Late st Contact Info) Description 10/07/2023 Telephone Hematology/Oncology [facility] [place] [address] [place] [phone] Xavi [facility] [address] Appointment (NEW CONSULTATION REFERRALS TO... Allergies Active Allergy Reactions Criticality Noted Date [...] morning. 30 Capsule 1 09/14/2023 Active Nystatin 507276 UNIT/ML Mouth/Throat Suspension 0 09/27/2023 Active amLODIPine [...] mRNA, LNP-s, No Pre serve, 2-Dose Series ([employer]) 05/30/2021,10/29/2020,10/08/2020 COVID-19, LNP-s, No Preserve , Prosper-sucrose, [...] Encounter - Kailee Montgomery LPN - 10/07/2023 9:54 AM EST Called [facility] scheduling line and spoke with Ilene. She advised they have one main central scheduling fax that all 3 referrals and records can be faxed to then [facility] will reachout to patient to set up consultations Faxed 44 pages to [facility] at [phone] Phone number to call if we do not hear anything about appointments is: [phone] documented in this encounter Plan of Treatment Upcoming Encounters Date Type Department Care Team (Late st Contact Info) Description 10/29/2023 11:15 AM EDT Office Visit Urology, [place] [address] [place] [address] Ernesto Villareal MD [address] [place] [address] 11/03/2023 11:15 AM EDT Office Visit Hematology/Oncology [facility] 200 [facility] [place] [phone] Xavi Gramajo MD 200 [facility] [place] [address] 11/08/2023 1:00 PM EDT Office Visit Cardiology, [facility] [address] [place] [address] Zak Rubio, [address] [place] [address] 11/09/2023 2:30 PM EDT Office Visit Otolaryngology [facility] 132 [facility] [place] [address] Dioni Jean-Baptiste DO 132 [facility] [place] [address] 11/26/2023 2:20 PM EDT Office Visit Neurology [facility] 200 [facility] [place] [address] Ellie Duncan MD 200 [facility] [place] [address] 11/29/2023 1:00 PM EDT Office [facility] [address] [place] [facility] [place] [address] Deondre Hill MD [address] [place] [address] 12/16/2023 4:30 PM EDT Office Visit Sleep Disorders Ctr [facility] [address] [facility] [place] [phone] Radha Caballero CRNP 132 [facility] [place] [address] 04/21/2024 2:40 PM EDT Office Visit [facility] [address] [place] [facility] [place] [address] Chuy Batista MD [address] [facility] [place] [phone] Health Maintenance Due Date Last Done Comments Albumin/Creatinine Ratio 1963 DTaP,Tdap,and Td Vaccines (1 - Tdap) 1964 Depression Screening 04/29/2021 04/29/2020 COVID-19 Vaccine (5 - 2022-24 season) 2023 02/11/2022, 02/11/2022, 05/30/2021, Additional history exists Influenza Vaccine (FLU shot) (#1) 2023 05/29/2022, 05/27/2021, 06/13/2020, Additional history exists GFR 04/05/2024 10/06/2023, 08/18, 09/13/2023, Additional history exists CKD PHOS USE SMARTSET 99376 09/11/202408/17, 09/11/2023, 07/14/2021, Additional history exists CKD HGB USE SMARTSET 11435 10/06/202410/06, 10/06/2023, 09/14/2023, Additional history exists Pneumococcal [...] the patient have Health Care Power of Metalizing Machine Operator Automatic? No Care Teams Weaving Inspector Relationship Specialty Start Date End Date Chuy Batista MD [address] [place] [address] PCP - General Family Medicine 07/11/14 documented as of this encounter
--- OUTSIDE RECORDS SUMMARY | 2023-10-09 21:50 | External Medical Summary | Summary of Care ---
Author Name Unknown Organization [facility] Address [address] [facility] [place] [address] Phone [phone] Care Team Providers Care Industrial Controls Technician Name Role Phone Chuy Batista MD Primary Care Provider +1- [phone] Reason for Visit * Reason Onset Date Comments Test Results Lab 10/07/2023 Encounter Details Date Type Department Care Team (Late st Contact Info) Description 10/07/2023 Telephone Hematology/Oncology [facility] [place] [address] [facility] [place] [phone] Enoc Gramajo MD [address] [facility] [place] [address] Test Results Lab Allergies Active Allergy Reactions [...] morning. 30 Capsule 1 09/14/2023 Active Nystatin 550998 UNIT/ML Mouth/Throat Suspension 0 09/27/2023 Active amLODIPine [...] mRNA, LNP-s, No Pre serve, 2-Dose Series ([employer]) 05/30/2021,10/29/2020,10/08/2020 COVID-19, LNP-s, No Preserve , Prosper-sucrose, [...] EDT Office Visit Urology, [place] [address] [place] [address] Ernesto Villareal MD [address] [place] [address] 11/03/2023 11:15 AM EDT Office Visit Hematology/Oncology [facility] [place] [address] [facility] [place] [address] Enoc Gramajo MD 200 [facility] [place] [address] 11/08/2023 1:00 PM EDT Office Visit Cardiology, [facility] [address] [facility] [place] [address] Zak Rubio, DO [address] [place] [address] 11/09/2023 2:30 PM EDT Office Visit Otolaryngology [facility] [address] [place] [address] Dioni Jean-Baptiste, DO [address] [place] [address] 11/26/2023 2:20 PM EDT Office Visit Neurology [facility] [place] [address] [facility] [place] [address] Ellie Duncan MD [address] [facility] [place] [address] 11/29/2023 1:00 PM EDT Office Visit [facility] [address] [place] [address] DecemberDeondre MD [address] [place] [address] 12/16/2023 4:30 PM EDT Office Visit [facility] Disorders Ctr [facility] [address] [place] [phone] Radha Caballero CRNP [address] [place] [address] 04/21/2024 2:40 PM EDT Office Visit [facility] [address] [facility] [place] [phone] Chuy Batista MD [address] [facility] [place] [address] Health Maintenance Due Date Last Done Comments Albumin/Creatinine Ratio 1963 DTaP,Tdap,and Td Vaccines (1 - Tdap) 1964 Depression Screening 04/29/2021 04/29/2020 COVID-19 Vaccine (5 - 2022-24 season) 2023 02/11/2022, 02/11/2022, 05/30/2021, Additional history exists Influenza Vaccine (FLU shot) (#1) 2023 05/29/2022, 05/27/2021, 06/13/2020, Additional history exists GFR 04/05/2024 10/06/2023, 08/18, 09/13/2023, Additional history exists CKD PHOS USE SMARTSET 10726 09/11/202408/17, 09/11/2023, 07/14/2021, Additional history exists CKD HGB USE SMARTSET 29168 10/06/202410/06, 10/06/2023, 09/14/2023, Additional history exists Pneumococcal [...] the patient have Health Care Power of Commercial Underwriter? No Care Teams Industrial Controls Technician Relationship Specialty Start Date End Date Chuy Batista MD [address] [place] [facility] [place] [address] PCP - General Family Medicine 07/11/14 documented as of this encounter
--- OUTSIDE RECORDS SUMMARY | 2023-10-09 21:50 | External Medical Summary | Summary of Care ---
Author Name Unknown Organization [facility] Address [address] [place] [address] Phone [phone] Care Team Providers Care Sandal Parts Assembler Name Role Phone Chuy Batista MD Primary Care Provider +1- [phone] Encounter Details Date Type Department Care Team (Late st Contact Info) Description 10/06/2023 Telephone [facility] [address] [place] [address] Chuy Batista MD [address] [place] [address] Allergies Active Allergy Reactions Criticality [...] morning. 30 Capsule 1 09/14/2023 Active Nystatin 105386 UNIT/ML Mouth/Throat Suspension 0 09/27/2023 Active amLODIPine [...] encounter Miscellaneous Notes * Telephone Encounter - Chuy Batista MD - 10/06/2023 1:31 PM EST Orders for hospital bed and rollator walker entered documented in this encounter Plan of Treatment Upcoming Encounters Date Type Department Care Team (Late st Contact Info) Description 10/29/2023 11:15 AM EDT Office Visit Urology, [place] [address] [place] [address] Ernesto Villareal MD [address] [place] [address] 11/03/2023 11:15 AM EDT Office Visit Hematology/Oncology [facility] 200 [facility] [place] [phone] Xavi Gramajo MD 200 [place] [address] 11/08/2023 1:00 PM EDT Office Visit Cardiology, [facility] [address] [place] [address] Zak Rubio, DO [address] [place] [address] 11/09/2023 2:30 PM EDT Office Visit Otolaryngology [facility] [address] [place] [address] Dioni Jean-Baptiste DO [address] [place] [address] 11/26/2023 2:20 PM EDT Office [facility] 200 [facility] [place] [address] Ellie Duncan MD 200 [facility] [place] [address] 11/29/2023 1:00 PM EDT Office Visit [facility] [address] [place] [address] Deondre Hill MD [address] [place] [address] 12/16/2023 4:30 PM EDT Office Visit [facility] [phone] Radha Caballero CRNP 132 [place] [address] 04/21/2024 2:40 PM EDT Office Visit [facility] [address] [place] [address] Chuy Batista MD [address] [place], [place] [phone] Health Maintenance Due Date Last Done Comments Albumin/Creatinine Ratio 1963 DTaP,Tdap,and Td Vaccines (1 - Tdap) 1964 Depression Screening 04/29/2021 04/29/2020 COVID-19 Vaccine ( - 24 season) 2023 02/11/2022, 02/11/2022, 05/30/2021, Additional history exists Influenza Vaccine (FLU shot) (#1) 2023 05/29/2022, 05/27/2021, 06/13/2020, Additional history exists GFR 04/05/2024 10/06/2023, 08/18, 09/13/2023, Additional history exists CKD PHOS USE SMARTSET 13347 09/11/202408/17, 09/11/2023, 07/14/2021, Additional history exists CKD HGB USE SMARTSET 83531 10/06/202410/06, 10/06/2023, 09/14/2023, Additional history exists Pneumococcal [...] the patient have Health Care Power of Tree Scout? No Care Teams Sandal Parts Assembler Relationship Specialty Start Date End Date Chuy Batista MD [address] [place] [facility] [place] [address] PCP - General Family Medicine 07/11/14 documented as of this encounter
--- OUTSIDE RECORDS SUMMARY | 2023-10-09 21:50 | External Medical Summary | Summary of Care ---
Author Name Unknown Organization [facility] Address [address] [place] [address] Phone [phone] Care Team Providers Care Pocket Cutter Name Role Phone Chuy Batista MD Primary Care Provider +1- [phone] Reason for Visit * Reason Onset Date Comments Appointment 10/04/2023 Orders for Hospi nicole bed and walker with seat Encounter Details Date Type Department Care Team (Late st Contact Info) Description 10/04/[address] [facility] [address] [place] [address] Chuy Batista MD [address] [place] [address] Appointment (Orders for Hospital bed [...] morning. 30 Capsule 1 09/14/2023 Active Nystatin 690655 UNIT/ML Mouth/Throat Suspension 0 09/27/2023 Active amLODIPine [...] mRNA, LNP-s, No Pre serve, 2-Dose Series ([employer]) 05/30/2021,10/29/2020,10/08/2020 COVID-19, LNP-s, No Preserve , Prosper-sucrose, Ages 12+ ([employer]) 02/11/2022 Pneumococcal Conjugate Vacc, 13 Valent (Prevnar) [...] advise. Patient's would like to go to [facility] to get this RAYMUNDO. Patient had an appointment with Dr. Gramajo and he refererd patient to [facility]. Dr. Gramajo thinks that [facility] can help him more than he can. Patient's had to call EMS to have them help get patient in the car to go to Dr. Gramajo's appointment this morning. 10/06/2023 * Telephone Encounter - Myranda Ya OSA - 10/05/2023 9:15 AM EST Verna calling from [facility] asking to speak with a nurse regarding supplies for pt. Transferred to nurse line Please call Verna back at [phone] * Telephone Encounter - Ania Neal OSA - 10/04/2023 11:35 AM EST Patient's came to front office attendant asking if patient can get an order for a hospital bed as they do not have a bathroom on the first floor. Patient has fell 3 times within 2 days. They have to have the neighbors come over to help him to the bathroom since he is so weak. She is looking for a hospital bed with an funeral pre arrangement counselor bc of patient's height. Patient's is asking [...] 10/29/2023 11:15 AM EDT Office Visit Urology, [place] [address] [place] [address] Ernesto Villareal MD [address] [place] [address] 11/03/2023 11:15 AM EDT Office Visit Hematology/Oncology [facility] 200 [facility] [place] [phone] Xavi Gramajo MD 200 [facility] [place] [address] 11/08/2023 1:00 PM EDT Office Visit Cardiology, [facility] [address] [place] [address] Zak Rubio, DO [address] [place] [address] 11/09/2023 2:30 PM EDT Office Visit Otolaryngology [facility] [address] [place] [address] Dioni Jean-Baptiste DO [address] [place] [address] 11/26/2023 2:20 PM EDT Office Visit [facility] 200 [facility] [place] [address] Ellie Duncan MD 200 [facility] [place] [address] 11/29/2023 1:00 PM EDT Office Visit [facility] [address] [place] [address] Deondre Hill MD [address] [place] [address] 12/16/2023 4:30 PM EDT Office Visit [facility] [phone] Radha Caballero CRNP 132 [place] [address] 04/21/2024 2:40 PM EDT Office Visit [facility] [address] [place] [address] Chuy Batista MD [address] [place], [place] [address] Health Maintenance Due Date Last Done Comments Albumin/Creatinine Ratio 1963 DTaP,Tdap,and Td Vaccines (1 - Tdap) 1965 Depression Screening 04/29/2021 04/29/2020 COVID-19 Vaccine ( - 24 season) 2023 02/11/2022, 02/11/2022, 05/30/2021, Additional history exists Influenza Vaccine (FLU shot) (#1) 2023 05/29/2022, 05/27/2021, 06/13/2020, Additional history exists GFR 04/05/2024 10/06/2023, 08/18, 09/13/2023, Additional history exists CKD PHOS USE SMARTSET 36173 09/11/202408/17, 09/11/2023, 07/14/2021, Additional history exists CKD HGB USE SMARTSET 34080 10/06/202410/06, 10/06/2023, 09/14/2023, Additional history exists Pneumococcal [...] the patient have Health Care Power of Vamp Strap Ironer? No Care Teams Pocket Cutter Relationship Specialty Start Date End Date Chuy Batista MD [address] [place] [address] PCP - General Family Medicine 07/11/14 documented as of this encounter
--- OUTSIDE RECORDS SUMMARY | 2023-10-09 21:50 | External Medical Summary | Summary of Care ---
Author Name Unknown Organization [facility] Address [address] [place] [address] Phone [phone] Care Team Providers Care Regional Medical Director Name Role Phone Chuy Batista MD Primary Care Provider +1- [phone] Encounter Details Date Type Department Care Team (Late st Contact Info) Description 10/06/2023 Telephone [facility] [address] [place] [address] Chuy Batista MD [address] [place] [address] Allergies Active Allergy Reactions Criticality [...] morning. 30 Capsule 1 09/14/2023 Active Nystatin 719743 UNIT/ML Mouth/Throat Suspension 0 09/27/2023 Active amLODIPine [...] encounter Miscellaneous Notes * Telephone Encounter - Lillian Gomez OSA - 10/07/2023 10:23 AM EST Pt is calling in needs pcp to call [facility] to speak with them regarding hospital bed Their phone number is [phone] * Telephone Encounter - Chuy Batista MD - 10/06/2023 1:31 PM EST Orders for hospital bed and rollator walker entered documented in this encounter Plan of Treatment Upcoming Encounters Date Type Department Care Team (Late st Contact Info) Description 10/29/2023 11:15 AM EDT Office Visit Urology, [place] [address] [place] [address] Ernesto Villareal MD [address] [place] [address] 11/03/2023 11:15 AM EDT Office Visit Hematology/Oncology [facility] [address] [place] [address] Xavi Gramajo MD [address] [place], [place] [address] 11/08/2023 1:00 PM EDT Office Visit Cardiology, [facility] [place] [address] Zak Rubio DO [address] [place] [address] 11/09/2023 2:30 PM EDT Office Visit Otolaryngology [facility] [address] [facility] [place] [address] Dioni Jean-Baptiste DO 132 [facility] [place] [address] 11/26/2023 2:20 PM EDT Office Visit Neurology [facility] 200 [place] [address] Ellie Duncan MD 200 [place] [address] 11/29/2023 1:00 PM EDT Office Visit [place] [address] [place] [address] Deondre Hill MD [address] [place] [address] 12/16/2023 4:30 PM EDT Office Visit Sleep Disorders Ctr [facility] 132 [place] [address] Radha Caballero CRNP [address] [facility] [address] 04/21/2024 2:40 PM EDT Office Visit [facility] [address] [place] [address] Chuy Batista MD [address] [place] [address] Health Maintenance Due Date Last Done Comments Albumin/Creatinine Ratio 1963 DTaP,Tdap,and Td Vaccines (1 - Tdap) 1964 Depression Screening 04/29/2021 04/29/2020 COVID-19 Vaccine (5 - 2022-24 season) 2023 02/11/2022, 02/11/2022, 05/30/2021, Additional history exists Influenza Vaccine (FLU shot) (#1) 2023 05/29/2022, 05/27/2021, 06/13/2020, Additional history exists GFR 04/05/2024 10/06/2023, 08/18, 09/13/2023, Additional history exists CKD PHOS USE SMARTSET 74774 09/11/202408/17, 09/11/2023, 07/14/2021, Additional history exists CKD HGB USE SMARTSET 29125 10/06/202410/06, 10/06/2023, 09/14/2023, Additional history exists Pneumococcal [...] the patient have Health Care Power of Core Stripper? No Care Teams Regional Medical Director Relationship Specialty Start Date End Date Chuy Batista MD [address] [place] [address] PCP - General Family Medicine 07/11/14 documented as of this encounter
--- OUTSIDE RECORDS SUMMARY | 2023-10-09 21:50 | External Medical Summary | Summary of Care ---
Author Name Unknown Organization [facility] Address [address] [facility] [place] [address] Phone [phone] Care Team Providers Care Assembly Line Robot Operator Name Role Phone Chuy Batista MD Primary Care Provider +1- [phone] Reason for Visit * Reason Onset Date Comments Test Results Lab 10/07/2023 Encounter Details Date Type Department Care Team (Late st Contact Info) Description 10/07/2023 Telephone Hematology/Oncology [facility] [place] 200 [facility] [place] [phone] Xavi Gramajo MD 200 [facility] [place] [address] Test Results Lab Allergies Active Allergy Reactions [...] morning. 30 Capsule 1 09/14/2023 Active Nystatin 326341 UNIT/ML Mouth/Throat Suspension 0 09/27/2023 Active amLODIPine [...] mRNA, LNP-s, No Pre serve, 2-Dose Series ([employer]) 05/30/2021,10/29/2020,10/08/2020 COVID-19, LNP-s, No Preserve , Prosper-sucrose, [...] 10/29/2023 11:15 AM EDT Office Visit Urology, [place] [address] [place] [address] Ernesto Villareal MD [address] [place] [address] 11/03/2023 11:15 AM EDT Office Visit Hematology/Oncology [facility] [address] [place] [phone] Xavi Gramajo MD 200 [facility] [place] [address] 11/08/2023 1:00 PM EDT Office Visit Cardiology, [facility] [address] [facility] [place] [address] Zak Rubio, DO [address] [place] [address] 11/09/2023 2:30 PM EDT Office Visit [facility]ology [facility] [place] [address] Dioni Jean-Baptiste, DO [address] [place] [address] 11/26/2023 2:20 PM EDT Office Visit Neurology [facility] [address] [facility] [place] [address] Ellie Duncan MD 200 [facility] [place], [place] [address] 11/29/2023 1:00 PM EDT Office Visit [facility] [address] [place] [phone] Deondre Hill MD [address] [place] [address] 12/16/2023 4:30 PM EDT Office Visit [facility] Disorders Ctr [facility] [address] [facility] [place] [address] Radha Caballero CRNP [address] [place] [address] 04/21/2024 2:40 PM EDT Office Visit [facility] [address] [facility] [address] Chuy Batista MD [address] [place] [address] Health Maintenance Due Date Last Done Comments Albumin/Creatinine Ratio 1963 DTaP,Tdap,and Td Vaccines (1 - Tdap) 1964 Depression Screening 04/29/2021 04/29/2020 COVID-19 Vaccine (5 - 2022-24 season) 2023 02/11/2022, 02/11/2022, 05/30/2021, Additional history exists Influenza Vaccine (FLU shot) (#1) 2023 05/29/2022, 05/27/2021, 06/13/2020, Additional history exists GFR 04/05/2024 10/06/2023, 08/18, 09/13/2023, Additional history exists CKD PHOS USE SMARTSET 55285 09/11/202408/17, 09/11/2023, 07/14/2021, Additional history exists CKD HGB USE SMARTSET 17584 10/06/202410/06, 10/06/2023, 09/14/2023, Additional history exists Pneumococcal [...] the patient have Health Care Power of Distillation Operator Helper? No Care Teams Assembly Line Robot Operator Relationship Specialty Start Date End Date Chuy Batista MD [address] [place] [address] PCP - General Family Medicine 07/11/14 documented as of this encounter
--- OUTSIDE RECORDS SUMMARY | 2023-10-09 21:50 | External Medical Summary | Summary of Care ---
Author Name Unknown Organization [facility] Address [address] [place] [address] Phone [phone] Care Team Providers Care Forensics Analyst Name Role Phone Chuy Batista MD Primary Care Provider [phone] Reason for Referral * Evaluate & Treat - Unlimited Visits (Within 10 days (routine)) - Pending Review Specialty Diagnoses / Procedures Referred By Contac t Referred To Contact Hematology/Oncology / Hematology Oncology Diagnoses Urothelial carcinoma of bladder (HCC) Other acute myocarditis Xavi Gramajo MD [address] [place] [address] Referral ID Status Reason Start Date Expiration Date Visits Requested Visits Authorized [id number] Pending Review Specialty Services Required 10/06/[phone] Question Answer Referral Priority Within 10 days (routine) Where should this appointment be scheduled? 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 Currently he is on high dose prednisone at 100 mg per day since last week of August 2023. Declining performed status, currently he is in the wheelchair. Would like to 2nd opinion regarding bladder cancer management. Thanks. Dr. Xavi Gramajo Hem/Onc * Evaluate & Treat - Unlimited Visits (Within 10 days (routine)) - Pending Review Specialty Diagnoses / Procedures Referred By Monik de leno Referred To Contact Cardiovascular Medicine / Cardiology Diagnoses Urothelial carcinoma of bladder (HCC) Other acute myocarditis Xavi Gramajo MD [address] [place] [address] Referral ID Status Reason Start Date Expiration Date Visits Requested Visits Authorized [id number] Pending Review Specialty Services Required 10/06/[phone] Question Answer Referral Priority Within 10 days (routine) Where should this appointment be scheduled? External - [facility] To which of the following clinics are you referring your patient? Cardio-Oncology Clinic Comments 78-year-old male, a case of nonmuscle invasive bladder cancer diagnosed in April 2023, TURBT x3, no longer a candidate for additional TURBT, no evidence of distant metastatic disease, received Keytruda x2 but right after 2nd dose of Keytruda, developed increasing shortness of breath, diagnosed a case of myocarditis, currently he is on prednisone 100 mg once a day since last week of August of 2023. Would like to have Cardiology evaluation Thanks. Dr. Xavi Gramajo Hem/Onc * Evaluate & Treat - Unlimited Visits (Within 10 days (routine)) - Pending Review Specialty Diagnoses / Procedures Referred By Monik de leon Referred To Contact Urology Diagnoses Urothelial carcinoma of bladder (HCC) Other acute myocarditis Xavi Gramajo MD [address] [facility] [place] [address] Referral ID Status Reason Start Date Expiration Date Visits Requested Visits Authorized [id number] Pending Review Specialty Services Required 10/06/[phone] Question Answer Referral Priority Within 10 days (routine) Where should this appointment be scheduled? External - [facility] What is the patient being referred for? Cancer Comments 78-year-old male, a case of nonmuscle invasive bladder cancer, diagnosed in April of 2023, S/P TURBT x3, now no longer considered for additional TURBT, received Keytruda x2, developed myocarditis, now Keytruda has been discontinued. Would like to have Urology evaluation Thanks. Dr. Xavi Gramajo Hem/Onc Reason for Visit * Reason Comments Consultation URothelial Cancer * Evaluate & Treat - Unlimited Visits (Within 30 days (routine)) - Pending Review Specialty Diagnoses / Procedures Referred By Monik t Referred To Contact Hematology/Oncology / Hematology Oncology Diagnoses Malignant neoplasm of urinary bladder, unspecified site (HCC) Chuy Batista MD [address] [place] [address] Referral ID Status Reason Start Date Expiration Date Visits Requested Visits Authorized [id number] Pending Review Specialty Services Required 09/28/[phone] Encounter Details Date Type Department Care Team (Late st Contact Info) Description 10/06/2023 10:45 AM EST Office Visit Hematology/Oncology [facility] [place] [address] [facility] [place] [id number] Xavi Gramajo MD [address] [place] [address] Urothelial carcinoma of bladder (HCC)*; Other acute myocarditis; Diarrhea, unspecified type; Stage 3b chronic kidney disease (HCC); Anemia, unspecified type Allergies Active Allergy Reactions Criticality Noted Date [...] morning. 30 Capsule 1 09/14/2023 Active Nystatin 763510 UNIT/ML Mouth/Throat Suspension 0 09/27/2023 Active amLODIPine Besylate 5 MG Oral Tablet (Norvasc) Take 1 Tablet by mouth in the morning. 0 09/10/2023 Active Ipratropium-Alb uterol 0.5-2.5 (3) MG/3ML Inhalation Solution (Duoneb) Inhale 3 mL by mouth every 6 hours as needed. 0 Active Sulfamethoxazol e-Trimethoprim 800-160 MG Oral Tablet [...] mRNA, LNP-s, No Pre serve, 2-Dose Series ([employer]) 05/30/2021,10/29/2020,10/08/2020 COVID-19, LNP-s, No Preserve , Prosper-sucrose, [...] Sign Reading Time Taken Comments Blood Pressure 134/86 10/06/2023 10:27 AM EST Pulse 87 10/06/2023 10:27 AM EST Temperature 36.6 C (97.8 F) 10/06/2023 1 0:27 AM EST Respiratory Rate 16 10/06/2023 10:2 7 AM EST Oxygen Saturation 96% 10/06/2023 10: 27 AM EST Inhaled Oxygen Concentration - - Weight 99.7 kg (219 lb 11.2 oz) 024 10:27 AM EST Height 190.5 cm (6' 3") 10/06/2023 10:2 7 AM EST Body Mass Index 27.46 10/06/2023 10:27 AM EST documented in this encounter Functional [...] as of this encounter Progress Notes * Xavi Gramajo MD - 10/06/2023 10:45 AM EST Hematology/Oncology Outpatient Consult Note Radha Bacon [address] [facility] [place] [address] BRANDEN HIGH MR # [id number] :1945 78-years old male, REASON FOR CONSULTATION: Consultation for Branden High requested by Dr. Batista for evaluation and discussion of treatment options for Bladder cancer. Date of consultation:10/06/2023 DIAGNOSIS: - unresectable nonmuscle invasive papillary bladder cancer (04/2023) - Received pembrolizumab 200 mg IV every 3 weeks on 07/26/2023., 2nd and the last dose received in early August of 2023. 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 History of DVT in the past, could not anticoagulate because of bleeding history (blood in the urine, radiation induced cystitis), S/P IVC filter placement about a year back. Right lower extremity DVT in the latest imaging study ( ight femoral vein and greater saphenous vein ( nonocclusive thrombus on 09/06/2023) , currently not on anticoagulation. History of prostate cancer, received radiation treatment, radiation induced cystitis. Severe contrast allergy so no IV contrast in his case. CURRENT TREATMENT: - presently he is on prednisone at 100 mg once a day since 09/12/2023 ( started when [facility] was [facility]). -he is on Bactrim prophylaxis. He is on omeprazole prophylaxis. DIAGNOSTIC WORKUP: Previous history of prostate cancer noted, he had radiation treatment about 6 years back I do not have those records for the review. 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 Gross hematuria in March 2023, CT scan of the abdomen pelvis without contrast on 04/09/2023 at [facility] 1. 2 mm right renal calculi. No ureteral calculi or hydronephrosis. 2. No change in appearance of the bladder since CT of December 12, 2022. Devlin balloon and a small amount of clot within the bladder with persistent bladder wall thickening and adjacent stranding. The findings suggest cystitis Has been followed by urologist Dr. Aguiar and had TURBT on 3 occasions as follows: Urinary bladder, "bladder tumor" (transurethral resection of the bladder tumor, 04/20/2023): - A low-grade papillary urothelial carcinoma is seen. - Infiltration of the subepithelial connective tissue is not seen. - Muscularis propria is not present on microscopy. - The TNM stage is Ta. Bladder, transurethral resection (04/23/2023): - High grade papillary urothelial carcinoma. 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 - Muscularis propria present within specimen. - The majority of the carcinoma that is well-visualized is low-grade Bladder, transurethral resection by Dr. Aguiar on 06/29/2023: - Low grade papillary urothelial carcinoma. 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 - No muscularis propria identified within specimen. - Majority of specimen consists of necrosis and inflammation with bacteria Because of persistent low-grade papillary urothelial carcinoma, he was referred to medical oncologist Dr. Yusuf and the he was started on pembrolizumab on 07/26/2023. He received 2nd dose in early August of 2023 but then he started having increasing shortness of breath, declining performed status, he was admitted at [facility], further workup asfollows, subsequently he was admitted at [facility] and then transferred at [facility] from where he was discharged on 09/14/2023. CT scan of the abdomen pelvis without contrast on 08/19/2023 at [facility]: -thickening of the bladder wall with multiple bladder diverticula and adjacent fat stranding ( similar to the prior study ) -coarse calcification within the bladder base/prostate grand which is new -bilateral nephrolithiasis, no ureteral stone, no hydronephrosis. CT chest on 08/19/2023: -no evidence of metastatic disease. Bilateral lower extremity Doppler evaluation on 09/06/2023: -DVT in the right femoral vein and greater saphenous vein ( nonocclusive thrombus) Left leg --> no DVT. Ultrasound of the liver on 09/06/2023: -no gallstones or biliary ductal dilatation. 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 No fracture is seen. Cardiac MRI done on 09/13/2023: 1. Cardiac MRI findings of normal biventricular systolic function. There is mild myocardial edema/inflammation noted in the basal to mid septal segments (T2 times ranging from 49-55). There is minimal atypical intermediate enhancement noted in some of these segments. There is no evidence of myocardial infarction noted. Overall these findings are indicative of mild myocarditis. 2. The left ventricle is of normal size with mild septal thickening. Left ventricle systolic function is normal.The calculated LV ejection fraction is 56%. 3. The right ventricle is of normal size and systolic function. The calculated RV ejection fractionis 56%. 4. There is no myocardial infarction noted on late gadolinium enhanced imaging. 5. A small (<5 mm) circumferential pericardial effusion is noted. 6. The ascending aorta is mildly dilated. BNP, NT-Pro Latest Ref Rng <300 pg/mL 09/11/2023 69 09/13/2023 <36 Component Latest Ref Rng 09/11/2023 CK 39 - 308 U/L 331 (H) Component Latest Ref Rng 09/11/2023 09/12/2023 09/13/2023 Troponin T, High Sensitivity <=22 ng/L 807 (HH) 615 (HH) 682 (HH) Troponin T, High Sensitivity 806 (HH) Troponin T, High Sensitivity 794 (HH) Troponin T, High Sensitivity 800 (HH) ECHO on 09/11/2023: Interpretation Summary The qualitative LV ejection fraction is 65-69% (normal). The right ventricular systolic function is qualitatively normal. The right ventricular cavity size is qualitatively normal. Moderate aortic valve stenosis is present. Mild mitral regurgitation is present. A trivial circumferential pericardial effusion is note INTERVAL HISTORY: He has come the clinic for the follow-up, he came to the clinic in a wheelchair. Before the recent hospitalizations, he was doing very well, he was ambulating well by himself, now significant declined performance status noted, no nausea, no vomiting, no fever, no leg edema, current weight around 219 lb, weight loss noted, good appetite, denies any bleeding from any sites Currently he is on prednisone 100 mg once a day since 09/12/2023. He is also on Bactrim prophylaxis as well as PPI prophylaxis. He does complain of shortness of breath and tiredness. No anginal chest pain. No hematuria for the last one month. Currently he has not on any anticoagulant treatment. REVIEW OF SYSTEMS: GENERAL: Weight loss, fatigue present, no fever, sweats or chills. SKIN: No skin rash, no bruising. HEAD: No new headache, no dizziness. EYES: No recent change in the vision, no diplopia, EARS: No earache no tinnitus, NOSE: No epistaxis, No nasal discharge or stuffiness, MOUTH: No sores, no dysphagia, no hoarseness of voice, NECK: No lumps, No swelling in thyroid area. No stiffness. PULMONARY: Mild cough, shortness of breath +, no hemoptysis, no chest pain, No wheezing. CARDIOVASCULAR: No anginal chest pain, no PND, no orthopnea. No palpitation, no leg edema. No syncope. GASTROINTESTINAL: No abdominal pain, no nausea or vomiting. Mild diarrhea, No constipation. No blood in stool or black tarry stools. No abdominal distention. UROLOGIC: No burning urination. No hematuria at this time. MUSCULOSKELETAL: No joint pain, No joint swelling, proximal muscle weakness of extremities. HEMATOLOGIC: No anemia, no bleeding disorder, No bruising. NEUROLOGIC: No seizures, no focal weakness, no speech difficulty, No memory disturbances. No tingling or numbness of the extremities. PSYCHIATRIC: No depression. Some anxiety. No psychosis. Past Medical History: Diagnosis Date Adrenal insufficiency (HCC) 04/23/2015 Allergic rhinitis 2007 Chronic anticoagulation 04/13/2017 Chronic rhinitis 2007 Chronic sinusitis 2007 Deviated nasal septum 2006 History of DVT in adulthood 08/20/2014 History of pulmonary embolism 04/2014 Kidney disease, chronic, stage III (GFR 30-59 ml/min) 10/21/2015 Per CKD protocol #1 ANDRZEJ (obstructive sleep apnea) 08/19/2018 Prostate cancer (HCC) Past Surgical History: Procedure Laterality Date CATARACT SURGERY,COMPLEX Bilateral REMOVAL OF APPENDIX Current Outpatient Medications Medication Sig Dispense Refill Syringe/Needle, Disp, 25G X 1-1/2" 3 ML MISC To use with injection of hydrocortisone if needed (Patient not taking: Reported on 09/28/2023) 2 Each 5 Fluticasone Propionate 50 MCG/ACT Nasal Suspension (Flonase) SPRAY 2 SPRAYS INTO EACH NOSTRIL IN THE MORNING 16 mL 3 Trelegy Ellipta 200-62.5-25 MCG/ACT Aerosol Powder Breath Activated (Feooefvunxf-Gdnxuaipjqjd-Hzykrdqpcr) Inhale 1 Puff by mouth every evening. [...] (5000 UT) Oral Capsule Take by mouth. Sennosides-Docusate Sodium 8.6-50 MG Oral Tablet Take [...] mouth at bedtime as needed for Insomnia. predniSONE 50 MG Oral Tablet (Deltasone) Take 2 Tablets by mouth in the morning. 30 Tablet 1 Omeprazole 20 MG Oral Capsule Delayed Release (PriLOSEC) Take 1 Capsule by mouth in the morning. 30Capsule 1 Sulfamethoxazole-Trimethoprim 800-160 MG Oral Tablet (Bactrim DS) Take 1 Tablet by mouth once a dayon Wednesday, Wednesday, and Wednesday only. (Patient not taking: Reported on 09/28/2023) 20 Tablet 0 Nystatin 304524 UNIT/ML Mouth/Throat Suspension amLODIPine Besylate 5 MG Oral Tablet (Norvasc) Take 1 Tablet by mouth in the morning. No current facility-administered medications for this visit. Family History Problem Relation Age of Onset Cancer Mother Cancer Father prostat Cancer Brother prostat Social History Socioeconomic History Marital status: Spouse name: Not on file Number of children: Not on file Years of education: Not on file Highest education level: Not on file Occupational History Not on file Tobacco Use Smoking status: Never Passive exposure: Never Smokeless tobacco: Never Tobacco comments: passive smoke from at home Vaping Use Vaping Use: Never used Substance and Sexual Activity Alcohol use: No Comment: 1 beer per year Drug use: No Sexual activity: Not on file Other Topics Concern Not on file Social History Narrative [employer] INFORMATION ENIVIRONMENTAL HISTORY: House: Two Story Type of Heating System: Gas and Forced air Air Conditioning: Yes Central Basement: Unfinished and No evidence mold, mildew Home have cockroaches: No Irritants in the home: None Patient's bedroom: FLOOR: second TYPE OF EDIL: Carpeting Beds: AMOUNT : 1 TYPE OF BEDS: Mattress and Box spring Pillows: AMOUNT: 2 TYPE OF PILLOWS: Synthetic (hypoallergenic, polyester) Bedroom contains: Minimal items Pets: 2 cat(s) [place] farm: No Law enforcement training; no occupation related worsening of symptoms. Entered By: Pancho Ch MD 02/25/2005 Social Determinants of Health Financial Resource Strain: Not on file Food Insecurity: No Food Insecurity (09/01/2019) Hunger Vital Sign Worried About Running Out of Food in the Last Year: Never true Ran Out of Food in the Last Year: Never true Transportation Needs: Not on file Physical Activity: Not on file Stress: Not on file Social Connections: Not on file Intimate Partner Violence: Not on file Housing Stability: Not on file On Exam: Examination done in the wheelchair BP 134/86 (BP Site: Left Arm, BP Position: Sitting, BP Cuff Size: Regular) | Pulse 87 | Temp 36.6 C (97.8 F) (Tympanic) | Resp 16 | Ht 1.905 m (6' 3") | Wt 99.7 kg (219 lb 11.2 oz) | SpO2 96% | BMI 27.46 kg/m | BSA 2.3 m Constitutional: Patient is alert, cooperative and oriented x 3. Well built man, Patient is in no acute distress. HEENT:No icterus, no pallor, Throat and pharynx normal. Sinuses are non-tender. Neck: Supple and without lymphadenopathy or masses. No JVD. No Palpable supraclavicular lymph nodes. Lungs: Clear to auscultation. Bilateral symmetric air entry. No wheezing or rhonchi. Cardiovascular: Normal heart sounds, no murmurs.Regular rate and rhythm. Abdomen: soft, nontender, no hepatomegaly, no splenomegaly. Bowel sounds are normal. Neurological: No gross focal neurological deficit; Extremities: No finger clubbing, No cyanosis. No leg edema. Skin:: No skin rash. SPINE: No spinal or paraspinal tenderness. LABS: -stool for C difficile --> negative (10/10/2023). Blood workup done on 10/06/2023: -WBC 96053, H&H of 15.2/46.7, Platelet count of 522036 -BUN/Creat: 40/1.1, Calcium 9.0, normal liver function test. Blood sugar 112. -CPK, pro BNP, troponin T --> pending. IMAGING: Nuclear medicine pulmonary perfusion testing on 09/11/2023 --> no evidence of pulmonary embolism on this perfusion only exam. ASSESSMENT AND PLAN: [facility] 78-year-old male, Who has non muscle invasive bladder cancer diagnosed in April 2023. Before that he had intermittent hematuria related to the radiation induced the cystitis (radiation treatment was given for the prostate cancer about 5 to 6 years back). Had TURBT x3 but now he is unrese [facility] ctable and so he received 1st dose of Keytruda on 07/26/2023 and 2nd dose in 1st week of August of 2023. Has underlying additions disease and he is on oral steroid hormonal supplementation. Since August of 2023, he was not feeling quite well, gradual declining performed status, not much ambulating, increasing tiredness and shortness of breath, had an extensive workup, ultimately diagnosed a case of myocarditis based on cardiac MRI and the elevated troponin, He is on oral prednisone 100 mg once a day since last week of August 2023. He says that he has experienced some improvement but complained of significant weakness, he is wheelchair-bound at this time. Reviewed CBCD, comprehensive metabolic panel done today, overall stable and normal findings Other blood workup done today, result pending We talked about Keytruda induced myocarditis and so further immunotherapy would be contraindicated in his case. Patient and mainly his had several questions about treatment option for bladder cancer told her that 1st he has to get better and then we can talk about systemic chemotherapy treatment option. They would like to have 2nd opinion at [facility], they would like to have Medical Oncology, Cardiology as well as Urology opinion from there. After reviewing cardiac markers, will decide about cutting back the dose of the prednisone, typically It is tapered over 8 to 12 weeks timeline. He will continue Bactrim prophylaxis. History of DVT in the past but because of intermittent hematuria, he is off the anticoagulant, he has IVC filter. I am planning to see him back in the clinic about 3 weeks. Thanks for the consultation Dr. Xavi Gramajo Hem/Onc (This note was completed using the dictation program Fluency Direct. As such, there may be misspellings word substitutions, or other variations that should not change the essence of the clinical content of this encounter note. If there is need for further clarification, please direct questions to the provider listed above.) documented in this encounter Nursing Notes * Kailee Montgomery LPN - 10/06/2023 10:33 AM EST Patient identifed by name and birthdate Do you have any concerns about pain management for today's visit? No Living Will or Advance Directive for Health Care as noted on the problem list. [facility] is a way you can talk to your provider on line through e-mail. Would you like to sign up? I can activate it for you? IN PROCESS Filed Vitals: 10/06/23 1027 BP: 134/86 Pulse: 87 Resp: 16 Temp: 36.6 C (97.8 F) TempSrc: Tympanic SpO2: 96% Weight: 99.7 kg (219 lb 11.2 oz) Height: 1.905 m (6' 3") Patient was instructed to not get up on the exam table/exam chair until directed and assisted by their provider; patient is to remain seated in the chair/ wheelchair/ exam table/ exam chair for fall prevention and safety reasons. Patient is aware to have assistance to step down off exam table/exam chair with personnel. Patient voiced full comprehension of instructions. documented in this encounter Plan of Treatment Upcoming Encounters Date Type Department Care Team (Late st Contact Info) Description 10/29/2023 11:15 AM EDT Office Visit Urology, [place] [address] [place] [address] Ernesto Villareal MD [address] [place] [address] 11/03/2023 11:15 AM EDT Office Visit Hematology/Oncology [address] [place] [phone] Xavi Gramajo MD [address] [facility] [place] [address] 11/08/2023 1:00 PM EDT Office Visit Cardiology, [facility] [address] [place] [address] Zak Rubio, DO [address] [place] [address] 11/09/2023 2:30 PM EDT Office Visit Otolaryngology [facility] [address] [place] [address] Dioni Jean-Baptiste, [address] [place] [address] 11/26/2023 2:20 PM EDT Office Visit Neurology [facility] [address] [facility] [place], [place] [address] Ellie Duncan MD [address] [facility] [place] [address] 11/29/2023 1:00 PM EDT Office Visit [facility] [address] [place] [address] Deondre Hill MD [address] [place] [address] 12/16/2023 4:30 PM EDT [facility] [id number] Radha Caballero CRNP [facility] [address] 04/21/2024 2:40 PM EDT Office Visit [facility] [address] [place] [phone] Chuy Batista MD [address], [place] [id number] Pending Results Name Type Priority Associated Diagnoses Date /Time TROPONIN T, HIGH SENSITIVITY Lab Routine Urothelial carcinoma of bladder (HCC) Other acute myocarditis 10/06/2023 11:25 AM EST CK Lab Routine Urothelial carcinoma of bladder (HCC) Other acute myocarditis 10/06/2023 11:25 AM EST BNP, NT-PRO Lab Routine Urothelial carcinoma of bladder (HCC) Other acute myocarditis 10/06/2023 11:25 AM EST Scheduled Orders Name Type Priority Associated Diagnoses Orde r Schedule TROPONIN T, HIGH SENSITIVITY Lab Routine Urothelial carcinoma of bladder (HCC) Other acute myocarditis Expected: 10/06/2023, Expires: 10/06/2024 CK Lab Routine Urothelial carcinoma of bladder (HCC) Other acute myocarditis Expected: 10/06/2023, Expires: 10/06/2024 BNP, NT-PRO Lab Routine Urothelial carcinoma of bladder (HCC) Other acute myocarditis Expected: 10/06/2023, Expires: 10/06/2024 GASTROINTESTINAL PATHOGEN PANEL, STOOL Lab Routine Urothelial carcinoma of bladder (HCC) Other acute myocarditis Diarrhea, unspecified type Expected: 10/13/2023, Expires: 10/06/2024 Scheduled Referrals Name Type Priority Associated Diagnoses Orde r Schedule ADULT/PEDS UROLOGY REFERRAL OP Referral Within 10 days (routine) Urothelial carcinoma of bladder (HCC) Other acute myocarditis Ordered: 10/06/2023 CARDIOLOGY REFERRAL OP Referral Within 10 days (routine) Urothelial carcinoma of bladder (HCC) Other acute myocarditis Ordered: 10/06/2023 HEMATOLOGY/ONCOLOGY REFERRAL OP Referral Within 10 days (routine) Urothelial carcinoma of bladder (HCC) Other acute myocarditis Ordered: 10/06/2023 Health Maintenance Due Date Last Done Comments Albumin/Creatinine Ratio 1963 DTaP,Tdap,and Td Vaccines (1 - Tdap) 1964 Depression Screening 04/29/2021 04/29/2020 COVID-19 Vaccine ( season) 2023 02/11/2022, 02/11/2022, 05/30/2021, Additional history exists Influenza Vaccine (FLU shot) (#1) 2023 05/29/2022, 05/27/2021, 06/13/2020, Additional history exists GFR 04/05/2024 10/06/2023, 08/18, 09/13/2023, Additional history exists CKD PHOS USE SMARTSET 20333 09/11/202408/17, 09/11/2023, 07/14/2021, Additional history exists CKD HGB USE SMARTSET 57514 10/06/202410/06, 10/06/2023, 09/14/2023, Additional history exists Pneumococcal [...] Not on filedocumented as of this encounter Procedures Procedure Name Priority Date/Time Associated Diagnosis Comments DIFFERENTIAL, AUTOMATED STAT 10/06/2023 11:25 AM EST Urothelial carcinoma of bladder (HCC) Other acute myocarditis COMPREHENSIVE METABOLIC PANEL STAT 10/06/2023 11:25 AM EST Urothelial carcinoma of bladder (HCC) Other acute myocarditis CBC STAT 10/06/2023 11:25 AM EST Urothelial carcinoma of bladder (HCC) Other acute myocarditis CBC STAT 10/06/2023 11:25 AM EST Urothelial carcinoma of bladder (HCC) Other acute myocarditis DIFFERENTIAL, TECHNOLOGIST REVIEW Routine 10/06/2023 11:25 AM EST Urothelial carcinoma of bladder (HCC) Other acute myocarditis documented in this encounter Results * (ABNORMAL) DIFFERENTIAL, TECHNOLOGIST REVIEW (10/06/2023 11:25 AM EST) WBC 16.40(H) 4.00 - 10.80 K/uL 10/06/2023 12:12 PM EST [facility] 56- Neutrophils % 92.0(H) 40.0 - 75.0 % 10/06/2023 12:12 PM EST [facility] 56-02 Lymphocytes % 4.0(L) 18.0 - 42.0 % 10/06/2023 12:12 PM EST [facility] 56- Monocytes % 4.0 1.0 - 11.0 % 10/06/2023 12:12 PM EST [facility] 56-02 Absolute Neutrophils 15.09(H) 1.80 - 7.70 K/uL 10/06/2023 12:12 PM EST [facility] 56-02 Absolute Lymphocytes 0.66(L) 1.00 - 4.80 K/uL 10/06/2023 12:12 PM EST [facility] 56-02 Absolute Monocytes 0.66 0.00 - 1.10 K/uL 10/06/2023 12:12 PM EST [facility] 56-02 nRBCs 10/06/2023 12:12 PM EST [facility] 56-02 Blood Venous blood specimen / Unknown Venipuncture / Unknown 10/06/2023 11:25 AM EST 10/06/2023 11:25 AM EST Xavi Gramajo MD LAB BLOOD ORDERABLES Performing Organization Address [facility]/ZIP Co de Phone Number [facility] [address] [place] [address] * DIFFERENTIAL, AUTOMATED (10/06/2023 11:25 AM EST) Blood Venous blood specimen / Unknown Venipuncture / Unknown 10/06/2023 11:25 AM EST 10/06/2023 11:25 AM EST Xavi Gramajo MD LAB BLOOD ORDERABLES Performing Organization Address City/[facility]/ZIP Co de Phone Number [facility] [address] [place] [address] * (ABNORMAL) CBC (10/06/2023 11:25 AM EST) WBC 16.40(H) 4.00 - 10.80 K/uL 10/06/2023 12:12 PM EST [facility] 56- RBC 5.20 4.50 - 5.25 M/uL 10/06/2023 12:12 PM [facility] 56- HGB 15.2 14.0 - 16.8 g/dL 10/06/2023 12:12 PM [facility] 56- HCT 46.7 40.0 - 48.4 % 10/06/2023 12:12 PM [facility] 56- MCV 89.8 82.0 - 99.5 fL 10/06/2023 12:12 PM EST [facility] 56- MCH 29.2 27.0 - 34.0 pg 10/06/2023 12:12 PM EST [facility] 56- MCHC 32.5 32.0 - 36.0 g/dL 10/06/2023 12:12 PM EST [facility] 56- RDW 17.1 11.5 - 15.5 % 10/06/2023 12:12 PM EST [facility] 56- PLT 156 140 - 400 K/uL 10/06/2023 12:12 PM [facility] 56 MPV 9.3 6.6 - 11.1 fL 10/06/2023 12:12 PM [facility] 56 Blood Venous blood specimen / Unknown Venipuncture / Unknown 10/06/2023 11:25 AM EST 10/06/2023 11:25 AM EST Xavi Gramajo MD LAB BLOOD ORDERABLES [facility] [address] [place], [place] [phone] * (ABNORMAL) COMPREHENSIVE METABOLIC PANEL (10/06/2023 11:25 AM EST) BUN 40(H) 6 - 20 mg/dL 10/06/2023 11:58 AM [facility] 56 Creatinine 1.1 0.6 - 1.2 mg/dL 10/06/2023 11:58 AM [facility] 56 Estimated Glomerular Filtration Rate 67 >=60 mL/min 10/06/2023 11:58 AM [facility] 56 Comment:eGFR is calculated b ased on the CKD-EPI 2020 equation Sodium 137 135 - 146 mmol/L 10/06/2023 11:58 AM [facility] 56 Potassium 4.2 3.5 - 5.1 mmol/L 10/06/2023 11:58 AM [facility] 56 Chloride 102 98 - 107 mmol/L 10/06/2023 11:58 AM [facility] 56 CO2 24 22 - 32 mmol/L 10/06/2023 11:58 AM [facility] 56 Anion Gap 11 7 - 15 mmol/L 10/06/2023 11:58 AM [facility] 56- Glucose 112 70 - 120 mg/dL 10/06/2023 11:58 AM [facility] 56 Albumin 3.7(L) 3.8 - 5.0 g/dL 10/06/2023 11:58 AM [facility] 56 AST 18 10 - 50 U/L 10/06/2023 11:58 AM [facility] 56 Alkaline Phosphatase 63 35 - 130 U/L 10/06/2023 11:58 AM [facility] 56- Bilirubin, Total 0.7 <=1.2 mg/dL 10/06/2023 11:58 AM [facility] 56- Calcium 9.0 8.4 - 10.2 mg/dL 10/06/2023 11:58 AM [facility] 56- Protein 6.1 6.0 - 8.3 g/dL 10/06/2023 11:58 AM [facility] 56- ALT 35 10 - 50 U/L 10/06/2023 11:58 AM [facility] 56-02 Blood Venous blood specimen / Unknown Venipuncture / Unknown 10/06/2023 11:25 AM EST 10/06/2023 11:25 AM EST Xavi Gramajo MD LAB BLOOD ORDERABLES [facility] [address]- [address] [place] [address] documented in this encounter Visit Diagnoses Diagnosis Urothelial carcinoma of bladder (HCC)- Primary Other acute myocarditis Diarrhea, unspecified type Stage 3b chronic kidney disease (HCC) Anemia, unspecified type documented in this encounter Advance Directives Latest [...] the patient have Health Care Power of Reimbursement Representative? No Care Teams Forensics Analyst Relationship Specialty Start Date End Date Chuy Batista MD [address] [place] [address] PCP - General Family Medicine 07/11/14 documented as of this encounter
--- OUTSIDE RECORDS SUMMARY | 2023-10-09 21:50 | External Medical Summary | Summary of Care ---
Author Name Unknown Organization [facility] Address [address] [facility] [place] [address] Phone [phone] Care Team Providers Care Hide Cooking Operator Name Role Phone Chuy Batista MD Primary Care Provider +1- [phone] Reason for Visit * Reason Onset Date Comments Test Results Lab 10/07/2023 Encounter Details Date Type Department Care Team (Late st Contact Info) Description 10/07/2023 Telephone Hematology/Oncology [facility] [place] [address] [facility] [place] [phone] Xavi Gramajo MD [address] [facility] [place] [address] Test Results Lab Allergies Active Allergy Reactions [...] morning. 30 Capsule 1 09/14/2023 Active Nystatin 638946 UNIT/ML Mouth/Throat Suspension 0 09/27/2023 Active amLODIPine [...] mRNA, LNP-s, No Pre serve, 2-Dose Series ([employer]) 05/30/2021,10/29/2020,10/08/2020 COVID-19, LNP-s, No Preserve , Prosper-sucrose, [...] (HH) Troponin T, High Sensitivity 800 (HH) * Telephone Encounter - Kailee Montgomery LPN - 10/07/2023 9:12 AM EST Critical Lab Troponin from 10/06 is 221 documented in this encounter Plan of Treatment Upcoming Encounters Date Type Department Care Team (Late st Contact Info) Description 10/29/2023 11:15 AM EDT Office Visit Urology, [place] [address] [place] [address] Ernesto Villareal MD [address] [place] [facility] [place] [address] 11/03/2023 11:15 AM EDT Office Visit Hematology/Oncology [facility] [place] [address] [facility] [place] [address] Xavi Gramajo MD [address] [facility] [place] [address] 11/08/2023 1:00 PM EDT Office Visit Cardiology, [facility] [address] [facility] [place] [address] Zak Rubio, 132 [place] [address] 11/09/2023 2:30 PM EDT Office Visit Otolaryngology [facility] 132 [facility] [place] [address] Dioni Jean-Baptiste, [address] [place] [address] 11/26/2023 2:20 PM EDT Office Visit Neurology [facility] [address] [facility] [place] [address] Ellie Duncan MD [address] [facility] [place] [address] 11/29/2023 1:00 PM EDT Office Visit [place] [address] [place] [phone] Deondre Hill MD [address] [place] [address] 12/16/2023 4:30 PM EDT Office Visit [facility] [place] [address] Radha Caballero CRNP [address] [facility] [place] [address] 04/21/2024 2:40 PM EDT Office Visit [place] [address] [place] [address] Chuy Batista MD [address] [place] [address] Health Maintenance Due Date Last Done Comments Albumin/Creatinine Ratio 1963 DTaP,Tdap,and Td Vaccines (1 - Tdap) 1964 Depression Screening 04/29/2021 04/29/2020 COVID-19 Vaccine (5 - 2022-24 season) 2023 02/11/2022, 02/11/2022, 05/30/2021, Additional history exists Influenza Vaccine (FLU shot) (#1) 2023 05/29/2022, 05/27/2021, 06/13/2020, Additional history exists GFR 04/05/2024 10/06/2023, 08/18, 09/13/2023, Additional history exists CKD PHOS USE SMARTSET 99894 09/11/202408/17, 09/11/2023, 07/14/2021, Additional history exists CKD HGB USE SMARTSET 31391 10/06/202410/06, 10/06/2023, 09/14/2023, Additional history exists Pneumococcal [...] the patient have Health Care Power of Element Winding Machine Tender? No Care Teams Hide Cooking Operator Relationship Specialty Start Date End Date Chuy Batista MD [address] [place] [address] PCP - General Family Medicine 07/11/14 documented as of this encounter
--- OUTSIDE RECORDS SUMMARY | 2023-10-09 21:50 | External Medical Summary | Summary of Care ---
Author Name Unknown Organization [facility] Address [address] [place] [address] Phone [phone] Care Team Providers Care Agency Appointments Supervisor Name Role Phone Chuy Batista MD Primary Care Provider +1- [phone] Encounter Details Date Type Department Care Team (Late st Contact Info) Description 10/06/2023 Telephone [facility] [address] [place] [address] Chuy Batista MD [address] [place] [address] Allergies Active Allergy Reactions Criticality [...] morning. 30 Capsule 1 09/14/2023 Active Nystatin 131437 UNIT/ML Mouth/Throat Suspension 0 09/27/2023 Active amLODIPine [...] is calling in needs pcp to call [facility] care to speak with them regarding hospital bed Their phone number is [phone] * Telephone Encounter - Chuy Batista MD - 10/06/2023 1:31 PM EST Orders for hospital bed and rollator walker entered documented in this encounter Plan of Treatment Upcoming Encounters Date Type Department Care Team (Late st Contact Info) Description 10/29/2023 11:15 AM EDT Office Visit Urology, [place] [address] [place] [address] Ernesto Villareal MD [address] [place] [address] 11/03/2023 11:15 AM EDT Office Visit Hematology/Oncology [facility] [place] [address] [place] [phone] Xavi Gramajo MD [address] [place] [address] 11/08/2023 1:00 PM EDT Office Visit Cardiology, [facility] [address] [place] [address] Zak Rubio, DO [address] [place] [address] 11/09/2023 2:30 PM EDT Office Visit Otolaryngology [facility] [address] [place] [address] Dioni [place]-Baptiste, DO [address] [place] [address] 11/26/2023 2:20 PM EDT Office Visit Neurology [facility] 200 [facility] [place] [address] Ellie Duncan MD 200 [place] [address] 11/29/2023 1:00 PM EDT Office Visit [place] [address] [place] [facility] [place] [address] Deondre Hill MD [address] [place] [address] 12/16/2023 4:30 PM EDT Office Visit [facility] Disorders Ctr [facility] [address] [place] [phone] Radha Caballero CRNP [address] [place] [address] 04/21/2024 2:40 PM EDT Office Visit [facility] [address] [place] [phone] Chuy Batista MD [address] [place], [place] [phone] Health Maintenance Due Date Last Done Comments Albumin/Creatinine Ratio 1963 DTaP,Tdap,and Td Vaccines (1 - Tdap) 1964 Depression Screening 04/29/2021 04/29/2020 COVID-19 Vaccine (5 - 2022-24 season) 2023 02/11/2022, 02/11/2022, 05/30/2021, Additional history exists Influenza Vaccine (FLU shot) (#1) 2023 05/29/2022, 05/27/2021, 06/13/2020, Additional history exists GFR 04/05/2024 10/06/2023, 08/18, 09/13/2023, Additional history exists CKD PHOS USE SMARTSET 03986 09/11/202408/17, 09/11/2023, 07/14/2021, Additional history exists CKD HGB USE SMARTSET 92031 10/06/202410/06, 10/06/2023, 09/14/2023, Additional history exists Pneumococcal [...] the patient have Health Care Power of Chemical Laboratory Chief? No Care Teams Agency Appointments Supervisor Relationship Specialty Start Date End Date Chuy Batista MD [address] [place] [address] PCP - General Family Medicine 07/11/14 documented as of this encounter
--- OUTSIDE RECORDS SUMMARY | 2023-10-09 21:50 | External Medical Summary | Summary of Care ---
Author Name Unknown Organization [facility] Address [address] [facility] [place] [address] Phone [phone] Care Team Providers Care Recovery Operator Helper Name Role Phone Chuy Batista MD Primary Care Provider +1- [phone] Reason for Visit * Reason Onset Date Comments Test Results Lab 10/07/2023 Encounter Details Date Type Department Care Team (Late st Contact Info) Description 10/07/2023 Telephone Hematology/Oncology [facility] [place] 200 [facility] [place] [phone] Xavi Gramajo MD 200 [facility] [place] [address] Test Results Lab Allergies Active Allergy Reactions [...] morning. 30 Capsule 1 09/14/2023 Active Nystatin 927951 UNIT/ML Mouth/Throat Suspension 0 09/27/2023 Active amLODIPine [...] mRNA, LNP-s, No Pre serve, 2-Dose Series ([employer]) 05/30/2021,10/29/2020,10/08/2020 COVID-19, LNP-s, No Preserve , Prosper-sucrose, [...] 10/29/2023 11:15 AM EDT Office Visit Urology, [place] [address] [place] [address] Ernesto Villareal MD [address] [place] [address] 11/03/2023 11:15 AM EDT Office Visit Hematology/Oncology [facility] [address] [place] [phone] Xavi Gramajo MD 200 [facility] [place] [address] 11/08/2023 1:00 PM EDT Office Visit Cardiology, [facility] [address] [facility] [place] [address] Zak Rubio, DO [address] [place] [address] 11/09/2023 2:30 PM EDT Office Visit Otol[facility]ology [facility] [place] [address] Dioni Jean-Baptiste, DO [address] [place] [address] 11/26/2023 2:20 PM EDT Office Visit Neurology [facility] [address] [facility] [place] [address] Ellie Duncan MD 200 [facility] [place], [place] [address] 11/29/2023 1:00 PM EDT Office Visit [facility] [address] [place] [phone] Deondre Hill MD [address] [place] [address] 12/16/2023 4:30 PM EDT Office Visit [facility] Disorders Ctr [facility] [address] [facility] [place] [phone] Radha Caballero CRNP [address] [place] [address] 04/21/2024 2:40 PM EDT Office Visit [facility] [address] [facility] [address] Chuy Batista MD [address] [place] [address] Health Maintenance Due Date Last Done Comments Albumin/Creatinine Ratio 1963 DTaP,Tdap,and Td Vaccines (1 - Tdap) 1964 Depression Screening 04/29/2021 04/29/2020 COVID-19 Vaccine (5 - 2022-24 season) 2023 02/11/2022, 02/11/2022, 05/30/2021, Additional history exists Influenza Vaccine (FLU shot) (#1) 2023 05/29/2022, 05/27/2021, 06/13/2020, Additional history exists GFR 04/05/2024 10/06/2023, 08/18, 09/13/2023, Additional history exists CKD PHOS USE SMARTSET 59374 09/11/202408/17, 09/11/2023, 07/14/2021, Additional history exists CKD HGB USE SMARTSET 39637 10/06/202410/06, 10/06/2023, 09/14/2023, Additional history exists Pneumococcal [...] the patient have Health Care Power of Computer Builder? No Care Teams Recovery Operator Helper Relationship Specialty Start Date End Date Chuy Batista MD [address] [place] [address] PCP - General Family Medicine 07/11/14 documented as of this encounter
--- OUTSIDE RECORDS SUMMARY | 2023-10-09 21:51 | External Medical Summary | Summary of Care ---
Author Name Unknown Organization [facility] Address [address] [place] [address] Phone [phone] Care Team Providers Care Cloth Dyeing Range Tender Name Role Phone Chuy Batista MD Primary Care Provider +1- [phone] Reason for Visit * Reason Onset Date Comments Appointment 10/04/2023 Orders for Hospi incole bed and walker with seat Encounter Details Date Type Department Care Team (Late st Contact Info) Description 10/04/2023 Telephone [facility] [address] [place] [address] Chuy Batista MD [address] [place] [address] Appointment (Orders for Hospital bed and w... Allergies Active Allergy Reactions Criticality Noted Date Comments Chocolate Diarrhea 05/14/2023 Clindamycin Hcl 09/24/2005 rash Iodinated Contrast Media 10/01/2015 Ioversol Other (Please comment) High 08/10/[address] IV DYE documented as of this encounter (statuses as of 10/04/2023) Medications Medication Sig Dispensed Refills Start Date [...] the morning. 30 Capsule 1 09/14/2023 Active Sulfamethoxazole -Trimethoprim 800-160 MG Oral Tablet (Bactrim DS) Take 1 Tablet by mouth once a day on Wednesday, Wednesday, and Wednesday only. 20 Tablet 0 09/15/2023 Active Additional Information Patient not taking.Reported on 09/28/2023 Nystatin 104523 UNIT/ML Mouth/Throat Suspension 0 09/27/2023 Active amLODIPine Besylate 5 MG Oral Tablet (Norvasc) Take 1 Tablet by mouth in the morning. 0 09/10/2023 Active documented as of this encounter (statuses as of 10/04/2023) Active Problems Problem Noted Date Diagnosed Date [...] as of this encounter (statuses as of 10/04/2023) Resolved Problems Problem Noted Date Diagnosed Date [...] as of this encounter (statuses as of 10/04/2023) Immunizations Name Administration Dates Next Due COVID-19 mRNA, LNP-s, No Pre serve, 2-Dose Series ([facility]) 05/30/2021,10/29/2020,10/08/2020 COVID-19, LNP-s, No Preserve , Prosper-sucrose, [...] 11:35 AM EST Patient's came to front end application developer asking if patient can get an order for a hospital bed as they do not have a bathroom on the first floor. Patient has fell 3 times within 2 days. They have to have the neighbors come over to help him to the bathroom since he is so weak. She is looking for a hospital bed with an air press operator bc of patient's height. Patient's is asking if this can be sent to [email or web address]. She is also asking if we can [...] 10/06/2023 10:45 AM EST Office Visit Hematology/Oncology [facility] [place] [address] [place] [phone] Xavi Gramajo MD [address] [place] [address] [address] 10/29/2023 11:15 AM EDT Office [address], [address] [address] Ernesto Villareal MD [address] [place] [address] 11/08/2023 1:00 PM EDT Office Visit Cardiology, [facility] 132 [facility] [place] [address] Zak Rubio, DO 132 [place] [address] 11/09/2023 2:30 PM EDT Office Visit Otolaryngology [facility] 132 [place] [place] [address] Dioni Jean-Baptiste, DO 132 [place] [address] 11/26/2023 2:20 PM EDT Office Visit Neurology [facility] [address] [place] [address] Ellie Duncan MD [address] [place] [address] 11/29/2023 1:00 PM EDT Office Visit [address] [phone] Deondre Hill MD [address] [place] [address] 12/16/2023 4:30 PM EDT Office Visit [facility] Disorders Ctr [facility] 132 [place] [address] Radha Caballero CRNP 132 [place] [address] 04/21/2024 2:40 PM EDT Office Visit [place] [address] [place] [address] Chuy Batista MD [address] [place] [address] Health Maintenance Due Date Last Done Comments Albumin/Creatinine Ratio 1963 DTaP,Tdap,and Td Vaccines (1 - Tdap) 1964 Depression Screening 04/29/2021 04/29/2020 COVID-19 Vaccine (5 - 2022-24 season) 2023 02/11/2022, 02/11/2022, 05/30/2021, Additional history exists Influenza Vaccine (FLU shot) (#1) 2023 05/29/2022, 05/27/2021, 06/13/2020, Additional history exists GFR 03/14/2024 09/14/2023, 08/17, 09/12/2023, Additional history exists CKD PHOS USE SMARTSET 69693 09/11/202408/17, 09/11/2023, 07/14/2021, Additional history exists CKD HGB USE SMARTSET 35836 09/14/202409/14, 09/13/2023, 09/12/2023, Additional history exists Pneumococcal Vaccine: 65+ Years [...] the patient have Health Care Power of [place]isd[place] Hand? No Care Teams Cloth Dyeing Range Tender Relationship Specialty Start Date End Date Chuy Batista MD [address] [place] [address] PCP - General Family Medicine 07/11/14 documented as of this encounter
--- OUTSIDE RECORDS SUMMARY | 2023-10-09 21:51 | External Medical Summary | Summary of Care ---
Author Name Unknown Organization [facility] Address [address] [facility] [place] [address] Phone [phone] Care Team Providers Care City Superintendent Of Schools Name Role Phone Chuy Batista MD Primary Care Provider +1- [phone] Reason for Visit * Reason Onset Date Comments NEW PATIENT 09/28/2023 JERI SEEN SOONER Encounter Details Date Type Department Care Team (Late st Contact Info) Description 09/28/2023 Telephone Hematology/Oncology [facility] [address] [place] [address] Alex Zazueta MD [address] [place] [address] NEW PATIENT (JERI SEEN SOONER) Allergies Active Allergy Reactions Criticality Noted Date Comments Chocolate Diarrhea 05/14/2023 Clindamycin Hcl 09/24/2005 rash Iodinated Contrast Media 10/01/2015 Ioversol Other (Please comment) High 08/10/[address] IV DYE documented as of this encounter (statuses as of 09/28/2023) Medications Medication Sig Dispensed Refills Start Date [...] Information Patient not taking.Reported on 09/28/2023 Nystatin 001883 UNIT/ML Mouth/Throat Suspension 0 09/27/2023 Active amLODIPine Besylate 5 MG Oral Tablet (Norvasc) Take 1 Tablet by mouth in the morning. 0 09/10/2023 Active documented as of this encounter (statuses as of 09/28/2023) Active Problems Problem Noted Date Diagnosed Date [...] as of this encounter (statuses as of 09/28/2023) Resolved Problems Problem Noted Date Diagnosed Date [...] as of this encounter (statuses as of 09/28/2023) Immunizations Name Administration Dates Next Due COVID-19 mRNA, LNP-s, No Pre serve, 2-Dose Series ([employer]) 05/30/2021,10/29/2020,10/08/2020 COVID-19, LNP-s, No Preserve , Prosper-sucrose, [...] Telephone Encounter - Kailee Montgomery LPN - 09/28/2023 2:05 PM EST Referral received for patient to be seen for New Oncology Consult; Previous oncology provider was [facility]. Called cell [facility] reserved for 10/[address] Nilson Zazueta. Left address and telephone number and advised to return our call to confirm or reschedule this appointment documented in this encounter Plan of Treatment Upcoming Encounters Date Type Department Care Team (Late st Contact Info) Description 10/06/2023 11:30 AM EST Office Visit Hematology/Oncology [facility] [address] [place] [address] Alex Zazueta MD [address] [place] [address] 10/27/2023 1:00 PM EDT Office Visit Cardiology, [facility] [address] [place] [address] Zak Rubio, DO [address] [place] [address] 11/09/2023 2:30 PM EDT Office Visit Otolaryngology [facility] [address] [place] [phone] Dioni Jean-Baptiste DO [address] [place] [phone] 11/26/2023 2:20 PM EDT [facility] [address] [facility] [place] [address] Ellie Duncan MD [address] [facility] [place] [address] 11/29/2023 1:00 PM EDT Office Visit [facility] [address] [place] [phone] December, Deondre Arechiga MD [address] [place] [address] 12/16/2023 4:30 PM EDT Office Visit Sleep Disorders [facility] [place] [phone] Radha Caballero CRNP [address] [place] [address] Health Maintenance Due Date Last Done Comments Albumin/Creatinine Ratio 1963 DTaP,Tdap,and Td Vaccines (1 - Tdap) 1964 Depression Screening 04/29/2021 04/29/2020 COVID-19 Vaccine (5 - 2022-24 season) 2023 02/11/2022, 02/11/2022, 05/30/2021, Additional history exists Influenza Vaccine (FLU shot) (#1) 2023 05/29/2022, 05/27/2021, 06/13/2020, Additional history exists GFR 03/14/2024 09/14/2023, 08/17, 09/12/2023, Additional history exists CKD PHOS USE SMARTSET 28807 09/11/202408/17, 09/11/2023, 07/14/2021, Additional history exists CKD HGB USE SMARTSET 03388 09/14/202409/14, 09/13/2023, 09/12/2023, Additional history exists Pneumococcal [...] the patient have Health Care Power of Ingot Passer? No Care Teams City Superintendent Of Schools Relationship Specialty Start Date End Date Chuy Batista MD [address] [place] [address] PCP - General Family Medicine 07/11/14 documented as of this encounter
--- OUTSIDE RECORDS SUMMARY | 2023-10-09 21:51 | External Medical Summary | Summary of Care ---
Author Name Unknown Organization [facility] Address [address] [place] [address] Phone [phone] Care Team Providers Care Technician Preventative Medicine Name Role Phone Chuy Batista MD Primary Care Provider +1- [phone] Reason for Visit * Reason Onset Date Comments Appointment 09/28/2023 Return in about 4 months (around 01/27/2024) for recheck. Encounter Details Date Type Department Care Team (Late st Contact Info) Description 09/28/2023 Telephone [facility] [address] [place] [address] Chuy Batista MD [address] [place] [address] Appointment (Return in about 4 months (randa... Allergies Active Allergy Reactions Criticality Noted Date Comments Chocolate Diarrhea 05/14/2023 Clindamycin Hcl 09/24/2005 rash Iodinated Contrast Media 10/01/2015 Ioversol Other (Please comment) High 08/10/[address] IV DYE documented as of this encounter (statuses as of 09/29/2023) Medications Medication Sig Dispensed Refills Start Date [...] Information Patient not taking.Reported on 09/28/2023 Nystatin 618136 UNIT/ML Mouth/Throat Suspension 0 09/27/2023 Active amLODIPine Besylate 5 MG Oral Tablet (Norvasc) Take 1 Tablet by mouth in the morning. 0 09/10/2023 Active documented as of this encounter (statuses as of 09/29/2023) Active Problems Problem Noted Date Diagnosed Date [...] as of this encounter (statuses as of 09/29/2023) Resolved Problems Problem Noted Date Diagnosed Date [...] as of this encounter (statuses as of 09/29/2023) Immunizations Name Administration Dates Next Due COVID-19 mRNA, LNP-s, No Pre serve, 2-Dose Series ([employer]) 05/30/2021,10/29/2020,10/08/2020 COVID-19, LNP-s, No Preserve , Prosper-sucrose, [...] Telephone Encounter - Ania Neal OSA - 09/29/2023 10:05 AM EST Gave patient's message below and she understood. 09/29/2023 * Telephone Encounter - Chuy Batista MD - 09/29/2023 9:56 AM EST Agree with getting him on the schedule for April. I have sent myself a message for 3 months to check in with pt over the telephone. This will be in December. We will assess how he is doing at that point and if a visit to our office would have value. If so, will look for a place to work him in. Can let him know of that plan. * Telephone Encounter - Ania Neal OSA - 09/28/2023 3:19 PM EST Per 09/28/2023 checkout notes: Return in about 4 months (around 01/27/2024) for recheck. First available Apr.21. Is this okay or would you like to see patient sooner? Thank you. documented in this encounter Plan of Treatment Upcoming Encounters Date Type Department Care Team (Late st Contact Info) Description 10/06/2023 11:30 AM EST Office Visit Hematology/Oncology [facility] [address] [facility] [place] [address] Alex Zazutea MD [address] [facility] [place] [address] 10/27/2023 1:00 PM EDT Office Visit Cardiology, [facility] [address] [facility] [place] [address] Zak Rubio, DO [address] [facility] [place] [address] 11/09/2023 2:30 PM EDT Office Visit Otolaryngology [facility] [address] [facility] [place] [address] Dioni Jean-Baptiste DO [address] [facility] [place] [address] 11/26/2023 2:20 PM EDT Office Visit Neurology [facility] [address] [facility] [place] [address] Ellie Duncan MD [address] [facility] [place] [address] 11/29/2023 1:00 PM EDT Office Visit [facility] [address] [place] [address] Deondre Hill MD [address] [place] [address] 12/16/2023 4:30 PM EDT Office Visit [facility] [address] [facility] [place] [phone] Radha Caballero CRNP [address] [facility] [place] [address] 04/21/2024 2:40 PM EDT Office Visit [facility] [address] [place] [place] [address] Chuy Batista MD [address] [facility] [place] [phone] Health Maintenance Due Date Last Done Comments Albumin/Creatinine Ratio 1963 DTaP,Tdap,and Td Vaccines (1 - Tdap) 1964 Depression Screening 04/29/2021 04/29/2020 COVID-19 Vaccine (5 - 2022-24 season) 2023 02/11/2022, 02/11/2022, 05/30/2021, Additional history exists Influenza Vaccine (FLU shot) (#1) 2023 05/29/2022, 05/27/2021, 06/13/2020, Additional history exists GFR 03/14/2024 09/14/2023, 08/17, 09/12/2023, Additional history exists CKD PHOS USE SMARTSET 72847 09/11/202408/17, 09/11/2023, 07/14/2021, Additional history exists CKD HGB USE SMARTSET 45232 09/14/202409/14, 09/13/2023, 09/12/2023, Additional history exists Pneumococcal [...] the patient have Health Care Power of Tin Worker? No Care Teams Technician Preventative Medicine Relationship Specialty Start Date End Date Chuy Batista MD [address] [facility] [place] [address] PCP - General Family Medicine 07/11/14 documented as of this encounter
--- OUTSIDE RECORDS SUMMARY | 2023-10-09 21:51 | External Medical Summary ---
Author Name Unknown Address Unknown Organization K01:[facility] [place] [address] [place] [address] Laboratory Report Ordering Provider Test Date Status EVELYN STUBBS 10/06/2023 11:25:41 Final Observation Date Value Abnormality Reference (Units ) Status CK 10/06/2023 11:25:41 50 39-308 (U/ L) Final Performing Location [facility] - [address] [place] [address]
--- OUTSIDE RECORDS SUMMARY | 2023-10-09 21:51 | External Medical Summary ---
Author Name Unknown Address Unknown Organization [id number][place] [place] [address] [place] [address] Laboratory Report Ordering Provider Test Date Status EVELYN STUBBS 10/06/2023 11:25:41 Final Exclude Heart Failure: <300 pg/mL
Diagnose Heart Failure:
Age <50 yr: >450 pg/mL
50-75 yr: >900 pg/mL
>75 yr: >1800 pg/mL
GFR is 30-59 mL/min: >1200 pg/mL or Age- adjusted values
GFR <30 mL/min: do not use, not reliable

Prognostic threshold: 1000 pg/mL Observation Date Value Abnormality Reference (Units ) Status BNP, Pro-hormone 10/06/2023 11:25:41 105 <30 0 (pg/mL) Final Performing Location [facility] [place] [facility] [address] [place] [address]
--- OUTSIDE RECORDS SUMMARY | 2023-10-09 21:51 | External Medical Summary | Summary of Care ---
Author Name Unknown Organization [facility] Address [address] [place] [address] Phone [phone] Care Team Providers Care Business Services Tech Name Role Phone Chuy Batista MD Primary Care Provider +1- [phone] Reason for Visit * Reason Onset Date Comments Appointment 09/28/2023 Sooner Hem/Onc a ppointment Encounter Details Date Type Department Care Team (Late st Contact Info) Description 09/28/2023 Telephone [facility] [address] [place] [address] Chuy Batista MD [address] [place] [address] Appointment (Sooner Hem/Onc appointment) Allergies Active Allergy Reactions Criticality Noted Date [...] Information Patient not taking.Reported on 09/28/2023 Nystatin 228775 UNIT/ML Mouth/Throat Suspension 0 09/27/2023 Active amLODIPine [...] mRNA, LNP-s, No Pre serve, 2-Dose Series ([employer]) 05/30/2021,10/29/2020,10/08/2020 COVID-19, LNP-s, No Preserve , Prosper-sucrose, [...] Encounter - Ania Neal OSA - 09/28/2023 3:26 PM EST Per 09/28/2023 checkout notes: Pt would prefer Dr Gramajo for oncology - currently scheduled with Dr Zazueta for 10/06/23 - if Dr Gramajohas something near the same timing, please change to him. Please advise. Thank you. documented in this encounter Plan of Treatment Upcoming Encounters Date Type Department Care Team (Late st Contact Info) Description 10/06/2023 11:30 AM EST Office Visit Hematology/Oncology [facility] [address] [place] [address] Alex Zazueta MD [address] [facility] [place] [address] 10/27/2023 1:00 PM EDT Office Visit Cardiology, [facility] [address] [place] [address] Zak Rubio, DO [address] [place] [address] 11/09/2023 2:30 PM EDT Office Visit Otolaryngology [facility] [address] [place] [phone] Dioni Jean-Baptiste, DO [address] [place] [address] 11/26/2023 2:20 PM EDT Office Visit [facility] [address] [facility] [place] [address] Ellie Duncan MD [address] [facility] [place] [address] 11/29/2023 1:00 PM EDT Office Visit [facility] [address] [facility] [place] [phone] Deondre Hill MD [address] [place] [address] 12/16/2023 4:30 PM EDT Office Visit [facility]tr [facility] [address] [facility] [place] [phone] Radha Caballero CRNP 132 [facility] [place] [address] 04/21/2024 2:40 PM EDT Office Visit [facility] [address] [facility] [place] [phone] Chuy Batista MD [address] [place] [address] Health Maintenance Due Date Last Done Comments Albumin/Creatinine Ratio 1963 DTaP,Tdap,and Td Vaccines (1 - Tdap) 1964 Depression Screening 04/29/2021 04/29/2020 COVID-19 Vaccine (5 - 2022-24 season) 2023 02/11/2022, 02/11/2022, 05/30/2021, Additional history exists Influenza Vaccine (FLU shot) (#1) 2023 05/29/2022, 05/27/2021, 06/13/2020, Additional history exists GFR 03/14/2024 09/14/2023, 08/17, 09/12/2023, Additional history exists CKD PHOS USE SMARTSET 54095 09/11/202408/17, 09/11/2023, 07/14/2021, Additional history exists CKD HGB USE SMARTSET 32206 09/14/202409/14, 09/13/2023, 09/12/2023, Additional history exists Pneumococcal [...] the patient have Health Care Power of Bindery Machine Operator? No Care Teams Business Services Tech Relationship Specialty Start Date End Date Chuy Batista MD [address] [place] [address] PCP - General Family Medicine 07/11/14 documented as of this encounter
--- OUTSIDE RECORDS SUMMARY | 2023-10-09 21:51 | External Medical Summary | Summary of Care ---
Author Name Unknown Organization [facility] Address [address] [place] [address] Phone [phone] Care Team Providers Care Golf Instructor Name Role Phone Chuy Batista MD Primary Care Provider +1- [phone] Reason for Visit * Reason Comments Outpatient Testing Encounter Details Date Type Department Care Team (Late st Contact Info) Description 09/30/2023 11:10 AM EST Laboratory Laboratory, [place] [address] [place] [address] [facility] [address] [place] [address] Diarrhea, unspecified type Allergies Active Allergy Reactions Criticality Noted Date Comments Chocolate Diarrhea 05/14/2023 Clindamycin Hcl 09/24/2005 rash Iodinated Contrast Media 10/01/2015 Ioversol Other (Please comment) High 08/10/[address] IV DYE documented as of this encounter (statuses as of 09/30/2023) Medications Medication Sig Dispensed Refills Start Date [...] Information Patient not taking.Reported on 09/28/2023 Nystatin 699320 UNIT/ML Mouth/Throat Suspension 0 09/27/2023 Active amLODIPine Besylate 5 MG Oral Tablet (Norvasc) Take 1 Tablet by mouth in the morning. 0 09/10/2023 Active documented as of this encounter (statuses as of 09/30/2023) Active Problems Problem Noted Date Diagnosed Date [...] as of this encounter (statuses as of 09/30/2023) Resolved Problems Problem Noted Date Diagnosed Date [...] as of this encounter (statuses as of 09/30/2023) Immunizations Name Administration Dates Next Due COVID-19 mRNA, LNP-s, No Pre serve, 2-Dose Series ([employer]) 05/30/2021,10/29/2020,10/08/2020 COVID-19, LNP-s, No Preserve , Prosper-sucrose, [...] Yes 09/12/2023 documented as of this encounter Plan of Treatment Upcoming Encounters Date Type Department Care Team (Late st Contact Info) Description 10/06/2023 10:45 AM EST Office Visit Hematology/Oncology [facility] [address] [place] [address] Xavi Gramajo MD [address] [place] [address] 10/27/2023 1:00 PM EDT Office Visit Cardiology, [facility] [address] [place] [address] Zak Rubio DO [address] [place] [address] 10/29/2023 11:15 AM EDT Office Visit Urology, [place] [address] [place] [address] Ernesto Villareal MD [address] [place] [address] 11/09/2023 2:30 PM EDT Office Visit Otolaryngology [facility] [address] [place] [address] Dioni Jean-Baptiste DO [address] [place] [address] 11/26/2023 2:20 PM EDT Office Visit Neurology [facility] [address] [place] [address] Ellie Duncan MD [address] [place] [address] 11/29/2023 1:00 PM EDT Office Visit [place] [address] [facility] [place] [phone] Deondre Hill MD [address] [place] [facility] [place] [address] 12/16/2023 4:30 PM EDT Office Visit [facility] [address] [facility] [place] [phone] Radha Caballero CRNP [address] [facility] [place] [address] 04/21/2024 2:40 PM EDT Office Visit [place] [address] [facility] [place] [address] Chuy Batista MD [address] [place] [facility] [place] [address] Pending Results Name Type Priority Associated Diagnoses Date /Time CLOSTRIDIUM DIFFICILE, PCR Lab Routine Diarrhea, unspecified type 09/30/2023 11:05 AM EST Health Maintenance Due Date Last Done Comments Albumin/Creatinine Ratio 1963 DTaP,Tdap,and Td Vaccines (1 - Tdap) 1964 Depression Screening 04/29/2021 04/29/2020 COVID-19 Vaccine (5 - 2022-24 season) 2023 02/11/2022, 02/11/2022, 05/30/2021, Additional history exists Influenza Vaccine (FLU shot) (#1) 2023 05/29/2022, 05/27/2021, 06/13/2020, Additional history exists GFR 03/14/2024 09/14/2023, 08/17, 09/12/2023, Additional history exists CKD PHOS USE SMARTSET 49887 09/11/202408/174, 09/11/2023, 07/14/2021, Additional history exists CKD HGB USE SMARTSET 49664 09/14/202409/14, 09/13/2023, 09/12/2023, Additional history exists Pneumococcal [...] as of this encounter Visit Diagnoses Diagnosis Diarrhea, unspecified type documented in this encounter Additional Health Concerns Infection Onset Date Last Indicated Resolved Time C. difficile Rule-Out 09/30/2023 09/30/2023 documented as of this encounter Advance Directives [...] the patient have Health Care Power of Seam Hammerer? No Care Teams Golf Instructor Relationship Specialty Start Date End Date Chuy Batista MD [address] [place] [address] PCP - General Family Medicine 07/11/14 documented as of this encounter
--- OUTSIDE RECORDS SUMMARY | 2023-10-09 21:51 | External Medical Summary | Summary of Care ---
Author Name Unknown Organization [facility] Address [address] [place] [address] Phone [phone] Care Team Providers Care Siebel Administrator Name Role Phone Chuy Batista MD Primary Care Provider +1- [phone] Reason for Visit * Reason Onset Date Comments Appointment 10/04/2023 Orders for Hospi nicole bed and walker with seat Encounter Details Date Type Department Care Team (Late st Contact Info) Description 10/04/2023 Telephone [facility] [address] [place] [address] Chuy Batista MD [address] [place] [address] Appointment (Orders for Hospital bed [...] Information Patient not taking.Reported on 09/28/2023 Nystatin 221884 UNIT/ML Mouth/Throat Suspension 0 09/27/2023 Active amLODIPine [...] mRNA, LNP-s, No Pre serve, 2-Dose Series ([employer]) 05/30/2021,10/29/2020,10/08/2020 COVID-19, LNP-s, No Preserve , Prosper-sucrose, [...] AM EST Patient's came to front desk admin asking if patient can get an order for a hospital bed as they do not have a bathroom on the first floor. Patient has fell 3 times within 2 days. They have to have the neighbors come over to help him to the bathroom since he is so weak. She is looking for a hospital bed with an carder blankets bc of patient's height. Patient's is asking if this can be sent to [facility]. She is also asking if we can order a walker with a seat for patient so that he can get around. Thiswill have to be extra wide because he is so big. Please advise. Thank you. documented in this encounter Plan of Treatment Upcoming Encounters Date Type Department Care Team (Late st Contact Info) Description 10/06/2023 10:45 AM EST Office Visit Hematology/Oncology [facility] [place] [address] [place] [address] Xavi Gramajo MD [address] [place] [address] 10/29/2023 11:15 AM EDT Office Visit Urology, [place] [address] [place] [address] Ernesto Villareal MD [address] [place] [address] 11/08/2023 1:00 PM EDT Office Visit Cardiology, [facility] [address] [facility] [address] Zak Rubio, DO [address] [place] [address] 11/09/2023 2:30 PM EDT Office Visit Otolaryngology [facility] [address] [facility] [place] [address] Dioni Jean-Baptiste, DO [address] [place] [address] 11/26/2023 2:20 PM EDT Office Visit Neurology [facility] [address] [place] [address] Ellie Duncan MD [address] [facility] [place] [place] [address] 11/29/2023 1:00 PM EDT Office Visit [place] [address] [place] [address] Deondre Hill MD [address] [place] [address] 12/16/2023 4:30 PM EDT Office Visit [facility] Disorders [facility]tr [facility] [address] [place] [address] Radha Caballero CRNP [address] [facility] [place] [address] 04/21/2024 2:40 PM EDT Office Visit [facility] [address] [place] [facility] [place] [address] Chuy Batista MD [address] [place], [place] [address] Health Maintenance Due Date Last Done Comments Albumin/Creatinine Ratio 1963 DTaP,Tdap,and Td Vaccines (1 - Tdap) 1964 Depression Screening 04/29/2021 04/29/2020 COVID-19 Vaccine (5 - 2022-24 season) 2023 02/11/2022, 02/11/2022, 05/30/2021, Additional history exists Influenza Vaccine (FLU shot) (#1) 2023 05/29/2022, 05/27/2021, 06/13/2020, Additional history exists GFR 03/14/2024 09/14/2023, 08/17, 09/12/2023, Additional history exists CKD PHOS USE SMARTSET 81374 09/11/202408/17, 09/11/2023, 07/14/2021, Additional history exists CKD HGB USE SMARTSET 06353 09/14/202409/14, 09/13/2023, 09/12/2023, Additional history exists Pneumococcal [...] the patient have Health Care Power of Family Welfare Social Work Professor? No Care Teams Siebel Administrator Relationship Specialty Start Date End Date Chuy Batista MD [address] [place] [address] PCP - General Family Medicine 07/11/14 documented as of this encounter
--- OUTSIDE RECORDS SUMMARY | 2023-10-09 21:51 | External Medical Summary | Summary of Care ---
Author Name Unknown Organization [facility] Address [address] [place] [address] Phone [phone] Care Team Providers Care Linen Room Attendant Name Role Phone Chuy Batista MD Primary Care Provider +1- [phone] Reason for Visit * Reason Onset Date Comments Appointment 09/28/2023 Sooner Hem/Onc a ppointment Encounter Details Date Type Department Care Team (Late st Contact Info) Description 09/28/2023 Telephone [facility] [address] [place] [address] Chyu Batista MD [address] [place] [address] Appointment (Sooner Hem/Onc appointment) Allergies [...] Information Patient not taking.Reported on 09/28/2023 Nystatin [id number] UNIT/ML Mouth/Throat Suspension 0 09/27/2023 Active amLODIPine [...] mRNA, LNP-s, No Pre serve, 2-Dose Series ([employer]) 05/30/2021,10/29/2020,10/08/2020 COVID-19, LNP-s, No Preserve , Prosper-sucrose, [...] Telephone Encounter - Kailee Montgomery LPN - 09/29/2023 11:16 AM EST Called and spoke with Ivet was able to move Branden to Dr. Gramajo at 1045 * Telephone Encounter - Ania Neal OSA [...] 10/06/2023 10:45 AM EST Office [facility] [place] [address] [place] [address] Xavi Gramajo MD [address] [place] [address] 10/27/2023 1:00 PM EDT Office Visit Cardiology, [facility] [address] [place] [address] Zak Rubio, [address] [place] [address] 11/09/2023 2:30 PM EDT Office Visit Otolaryngology [facility] 132 [facility] [place] [address] Dioni Jean-Baptiste DO 132 [facility] [place] [address] 11/26/2023 2:20 PM EDT Office Visit Neurology [facility] 200 [place] [address] Ellie Duncan MD 200 [facility] [address] 11/29/2023 1:00 PM EDT Office Visit [place] [address] [place] [address] Deondre Hill MD [address], [place] [address] 12/16/2023 4:30 PM EDT Office Visit Sleep Disorders Ctr [facility] 132 [facility] [place] [address] Radha Caballero CRNP 132 [facility] [place] [address] 04/21/2024 2:40 PM EDT Office Visit [facility] [address] [place] [address] Chuy Batista MD [address] [place], [place] [address] Health Maintenance Due Date Last Done Comments Albumin/Creatinine Ratio 1963 DTaP,Tdap,and Td Vaccines (1 - Tdap) 1964 Depression Screening 04/29/2021 04/29/2020 COVID-19 Vaccine (5 - 2022-24 season) 2023 02/11/2022, 02/11/2022, 05/30/2021, Additional history exists Influenza Vaccine (FLU shot) (#1) 2023 05/29/2022, 05/27/2021, 06/13/2020, Additional history exists GFR 03/14/2024 09/14/2023, 08/17, 09/12/2023, Additional history exists CKD PHOS USE SMARTSET 48324 09/11/202408/17, 09/11/2023, 07/14/2021, Additional history exists CKD HGB USE SMARTSET 71102 09/14/202409/14, 09/13/2023, 09/12/2023, Additional history exists Pneumococcal [...] the patient have Health Care Power of Bolt Sorter? No Care Teams Linen Room Attendant Relationship Specialty Start Date End Date Chuy Batista MD [address] [place], [place] [phone] PCP - General Family Medicine 07/11/14 documented as of this encounter
--- OUTSIDE RECORDS SUMMARY | 2023-10-09 21:51 | External Medical Summary | Summary of Care ---
Author Name Unknown Organization [facility] Address [address] [place] [address] Phone [phone] Care Team Providers Care Sales Outfitter Name Role Phone Chuy Batista MD Primary Care Provider +1- [phone] Reason for Visit * Reason Onset Date Comments Appointment 10/04/2023 Orders for Hospi nicole bed and walker with seat Encounter Details Date Type Department Care Team (Late st Contact Info) Description 10/04/2023 Telephone [facility] [address] [place] [address] Chuy Batista MD [address] [place] [address] Appointment (Orders for Hospital bed and w... Allergies Active Allergy Reactions Criticality Noted Date Comments Chocolate Diarrhea 05/14/2023 Clindamycin Hcl 09/24/2005 rash Iodinated Contrast Media 10/01/2015 Ioversol Other (Please comment) High 08/10/[address] IV DYE documented as of this encounter (statuses as of 10/05/2023) Medications Medication Sig Dispensed Refills Start Date [...] Information Patient not taking.Reported on 09/28/2023 Nystatin [id number] UNIT/ML Mouth/Throat Suspension 0 09/27/2023 Active amLODIPine Besylate 5 MG Oral Tablet (Norvasc) Take 1 Tablet by mouth in the morning. 0 09/10/2023 Active documented as of this encounter (statuses as of 10/05/2023) Active Problems Problem Noted Date Diagnosed Date [...] as of this encounter (statuses as of 10/05/2023) Resolved Problems Problem Noted Date Diagnosed Date [...] as of this encounter (statuses as of 10/05/2023) Immunizations Name Administration Dates Next Due COVID-19 mRNA, LNP-s, No Pre serve, 2-Dose Series ([employer]) 05/30/2021,10/29/2020,10/08/2020 COVID-19, LNP-s, No Preserve , Prosper-sucrose, [...] encounter Miscellaneous Notes * Telephone Encounter - Myranda Ya OSA - 10/05/2023 9:15 AM EST Verna calling from [facility] asking to speak with a nurse regarding supplies for pt. Transferred to nurse line Please call Verna back at [phone] * Telephone Encounter - Ania Neal OSA - 10/04/2023 11:35 AM EST Patient's came to senior front end engineer asking if patient can get an order for a hospital bed as they do not have a bathroom on the first floor. Patient has fell 3 times within 2 days. They have to have the neighbors come over to help him to the bathroom since he is so weak. She is looking for a hospital bed with an supervisor irrigation bc of patient's height. Patient's is asking [...] 10/06/2023 10:45 AM EST Office Visit Hematology/Oncology [place] [place] 200 [facility] [place], [place] [address] Xavi Gramajo MD 200 [facility] [place], [place] [address] 10/29/2023 11:15 AM EDT Office Visit Urology, [place] [address] [place] [address] Ernesto Villareal MD [address] [place] [address] 11/08/2023 1:00 PM EDT Office Visit Cardiology, [facility] [address] [place] [address] Zak Rubio DO [address] [facility] [place] [address] 11/09/2023 2:30 PM EDT Office Visit Otolaryngology [facility] [address] [place] [address] Dioni Jean-Baptiste, DO [address] [place] [address] 11/26/2023 2:20 PM EDT Office Visit Neurology [facility] [address] [place], [place] [address] Ellie Duncan MD 200 [facility] [place], [place] [address] 11/29/2023 1:00 PM EDT Office Visit [facility] [address] [place] [address] Deondre Hill MD [address] [place] [address] 12/16/2023 4:30 PM EDT Office Visit Sleep Disorders Ctr [facility] [address] [place] [phone] Radha Caballero CRNP [address] [place] [address] 04/21/2024 2:40 PM EDT Office Visit [facility] [address] [place] [address] Chuy Batista MD [address] [place] [address] Health Maintenance Due Date Last Done Comments Albumin/Creatinine Ratio 1963 DTaP,Tdap,and Td Vaccines (1 - Tdap) 1964 Depression Screening 04/29/2021 04/29/2020 COVID-19 Vaccine ( - 2022- season) 2023 02/11/2022, 02/11/2022, 05/30/2021, Additional history exists Influenza Vaccine (FLU shot) (#1) 2023 05/29/2022, 05/27/2021, 06/13/2020, Additional history exists GFR 03/14/2024 09/14/2023, 08/17, 09/12/2023, Additional history exists CKD PHOS USE SMARTSET 49586 09/11/202408/17, 09/11/2023, 07/14/2021, Additional history exists CKD HGB USE SMARTSET 46749 09/14/202409/14, 09/13/2023, 09/12/2023, Additional history exists Pneumococcal [...] the patient have Health Care Power of Party Bus Driver? No Care Teams Sales Outfitter Relationship Specialty Start Date End Date Chuy Batista MD [address] [place] [address] PCP - General Family Medicine 07/11/14 documented as of this encounter
--- OUTSIDE RECORDS SUMMARY | 2023-10-09 21:51 | External Medical Summary | Summary of Care ---
Author Name Unknown Organization [facility] Address [address] [place] [address] Phone [phone] Care Team Providers Care Environmental Health Manager Name Role Phone Chuy Batista MD Primary Care Provider +1- [phone] Reason for Visit * Reason Onset Date Comments Appointment 09/28/2023 Return in about 4 months (around 01/27/2024) for recheck. Encounter Details Date Type Department Care Team (Late st Contact Info) Description 09/28/2023 Telephone [facility] [address] [place] [address] Chuy Batista MD [address] [place] [address] Appointment (Return in about 4 [...] Information Patient not taking.Reported on 09/28/2023 Nystatin [id number] UNIT/ML Mouth/Throat Suspension 0 09/27/2023 Active amLODIPine [...] mRNA, LNP-s, No Pre serve, 2-Dose Series ([employer]) 05/30/2021,10/29/2020,10/08/2020 COVID-19, LNP-s, No Preserve , Prosper-sucrose, [...] 10/06/2023 11:30 AM EST Office Visit Hematology/Oncology [place] [address] [place] [address] Alex Zazueta MD [address] [place] [address] 10/27/2023 1:00 PM EDT Office Visit Cardiology, [facility] [address] [place] [address] Zak Rubio, DO [address] [place] [address] 11/09/2023 2:30 PM EDT Office Visit Otolaryngology [facility] [address] [place] [address] Dioni Jean-Baptiste, DO [address] [place] [address] 11/26/2023 2:20 PM EDT Office Visit Neurology [facility] 200 [facility] [place] [address] Ellie Duncan MD 200 [facility] [address] 11/29/2023 1:00 PM EDT Office Visit [address] [place] [address] Deondre Hill MD [address] [place] [address] 12/16/2023 4:30 PM EDT Office Visit Sleep Disorders Ctr [facility] [address] [place] [phone] Radha Caballero CRNP 132 [place] [address] 04/21/2024 2:40 PM EDT Office Visit [facility] [address] [place] [facility] [place] [phone] Chuy Batista MD [address] [place] [address] Health Maintenance Due Date Last Done Comments Albumin/Creatinine Ratio 1963 DTaP,Tdap,and Td Vaccines (1 - Tdap) 1964 Depression Screening 04/29/2021 04/29/2020 COVID-19 Vaccine (5 - 2022-24 season) 2023 02/11/2022, 02/11/2022, 05/30/2021, Additional history exists Influenza Vaccine (FLU shot) (#1) 2023 05/29/2022, 05/27/2021, 06/13/2020, Additional history exists GFR 03/14/2024 09/14/2023, 08/17, 09/12/2023, Additional history exists CKD PHOS USE SMARTSET 92750 09/11/202408/17, 09/11/2023, 07/14/2021, Additional history exists CKD HGB USE SMARTSET 62516 09/14/202409/14, 09/13/2023, 09/12/2023, Additional history exists Pneumococcal [...] the patient have Health Care Power of Photogrammetric Engineer? No Care Teams Environmental Health Manager Relationship Specialty Start Date End Date Chuy Batista MD [address] [place] [address] PCP - General Family Medicine 07/11/14 documented as of this encounter
--- OUTSIDE RECORDS SUMMARY | 2023-10-09 21:51 | External Medical Summary | Summary of Care ---
Author Name Unknown Organization [facility] Address [address] [place] [address] Phone [phone] Care Team Providers Care Instructor Modeling Name Role Phone Chuy Batista MD Primary Care Provider +1- [phone] Reason for Visit * Reason Onset Date Comments Appointment 10/04/2023 Orders for Hospi nicole bed and walker with seat Encounter Details Date Type Department Care Team (Late st Contact Info) Description 10/04/2023 Telephone [facility] [address] [place] [address] Chuy Batista MD [address] [place] [address] Appointment (Orders for Hospital bed [...] Information Patient not taking.Reported on 09/28/2023 Nystatin [id number] UNIT/ML Mouth/Throat Suspension 0 09/27/2023 Active amLODIPine [...] mRNA, LNP-s, No Pre serve, 2-Dose Series ([employer]) 05/30/2021,10/29/2020,10/08/2020 COVID-19, LNP-s, No Preserve , Prosper-sucrose, [...] 10/05/2023 9:15 AM EST Verna calling from [facility] asking to speak with a nurse regarding supplies for pt. Transferred to nurse line * Telephone Encounter - Ania Neal OSA - 10/04/2023 11:35 AM EST Patient's came to motel front desk attendant asking if patient can get an order for a hospital bed as they do not have a bathroom on the first floor. Patient has fell 3 times within 2 days. They have to have the neighbors come over to help him to the bathroom since he is so weak. She is looking for a hospital bed with an closing machine operator bc of patient's height. [facility] She is also asking if we can [...] AM EST Office Visit Hematology/Oncology [place] 200 [facility] [place] [address] Xavi Gramajo MD 200 [facility] [place] [address] 10/29/2023 11:15 AM EDT Office Visit Urology, [place] [address] [place] [address] Ernesto Villareal MD [address] [place], [place] [address] 11/08/2023 1:00 PM EDT Office Visit Cardiology, [facility] [address] [place] [address] Zak Rubio DO [address] [place] [address] 11/09/2023 2:30 PM EDT Office Visit Otolaryngology [facility] [address] [place] [address] Dioni Jean-Baptiste, DO [address] [place] [address] 11/26/2023 2:20 PM EDT Office Visit Neurology [facility] 200 [facility] [place] [address] Ellie Duncan MD 200 [facility] [place] [address] 11/29/2023 1:00 PM EDT Office Visit [facility] [address] [place] [address] Deondre Hill MD [address] [place] [address] 12/16/2023 4:30 PM EDT Office Visit Sleep Disorders Ctr [facility] [address] [place] [address] Radha Caballero CRNP [address] [place] [address] 04/21/2024 2:40 PM EDT Office Visit [facility] [address] [facility] [address] Chuy Batista MD [address] [place] [address] Health Maintenance Due Date Last Done Comments Albumin/Creatinine Ratio 1963 DTaP,Tdap,and Td Vaccines (1 - Tdap) 1964 Depression Screening 04/29/2021 04/29/2020 COVID-19 Vaccine (5 - season) 2023 02/11/2022, 02/11/2022, 05/30/2021, Additional history exists Influenza Vaccine (FLU shot) (#1) 2023 05/29/2022, 05/27/2021, 06/13/2020, Additional history exists GFR 03/14/2024 09/14/2023, 08/17, 09/12/2023, Additional history exists CKD PHOS USE SMARTSET 68105 09/11/202408/17, 09/11/2023, 07/14/2021, Additional history exists CKD HGB USE SMARTSET 56906 09/14/202409/14, 09/13/2023, 09/12/2023, Additional history exists Pneumococcal [...] the patient have Health Care Power of Picture Enlarger? No Care Teams Instructor Modeling Relationship Specialty Start Date End Date Chuy Batista MD [address] [facility] [place] [address] PCP - General Family Medicine 07/11/14 documented as of this encounter
--- OUTSIDE RECORDS SUMMARY | 2023-10-09 21:51 | External Medical Summary ---
Author Name Unknown Address Unknown Organization K09:[facility] [place] [address] Laboratory Report Ordering Provider Test Date Status EVELYN STUBBS 10/06/2023 11:25:41 Final Observation Date Value Abnormality Reference (Units ) Status WBC, Total 10/06/2023 11:25:41 16.40 Above high normal 4 .00-10.80 (K/uL) Final RBC 10/06/2023 11:25:41 5.20 4.50-5.25 (M/uL) Final Hemoglobin 10/06/2023 11:25:41 15.2 14.0-16.8 (g/dL) Final HCT 10/06/2023 11:25:41 46.7 40.0-48.4 (%) Final MCV 10/06/2023 11:25:41 89.8 82.0-99.5 (fL) Final MCH 10/06/2023 11:25:41 29.2 27.0-34.0 (pg) Final MCHC 10/06/2023 11:25:41 32.5 32.0-36.0 (g/dL) Final RDW 10/06/2023 11:25:41 17.1 11.5-15.5 (%) Final Platelets 10/06/2023 11:25:41 156 140-400 (K /uL) Final MPV 10/06/2023 11:25:41 9.3 6.6-11.1 ( fL) Final Performing Location [facility] [place] [address]
--- OUTSIDE RECORDS SUMMARY | 2023-10-09 21:51 | External Medical Summary ---
Author Name Unknown Address Unknown Organization K09:[facility] [id number] [place] [address] Laboratory Report Ordering Provider Test Date Status EVELYN STUBBS 10/06/2023 11:25:41 Final Observation Date Value Abnormality Reference (Units ) Status BUN 10/06/2023 11:25:41 40 Above high normal 6-20 (mg/dL) Final Creatinine 10/06/2023 11:25:41 1.1 0.6-1.2 (mg/dL) Final Glomerular filtration rate/1.73 sq M.predicted [Volume Rate/Area] in Serum, Plasma or Blood by Creatinine-based formula (CKD-EPI) 10/06/2023 11:25:41 67 >=60 (mL/min) Final eGFR is calculated based on the CKD-EPI 2020 equation SODIUM 10/06/2023 11:25:41 137 135-146 (m mol/L) Final Potassium 10/06/2023 11:25:41 4.2 3.5-5.1 (m mol/L) Final Cl 10/06/2023 11:25:41 102 98-107 (mm ol/L) Final CO2 10/06/2023 11:25:41 24 22-32 (mmo l/L) Final Anion gap 10/06/2023 11:25:41 11 7-15 (mmol /L) Final Glucose 10/06/2023 11:25:41 112 70-120 (mg /dL) Final Albumin 10/06/2023 11:25:41 3.7 Below low normal 3.8 -5.0 (g/dL) Final AST (Aspartate aminotransferase) 10/06/2023 11:25:41 18 10-50 (U/L) Fin al Alk Phos 10/06/2023 11:25:41 63 35-130 (U/ L) Final Bilirubin, Total 10/06/2023 11:25:41 0.7 <=1 .2 (mg/dL) Final Calcium 10/06/2023 11:25:41 9.0 8.4-10.2 ( mg/dL) Final Protein 10/06/2023 11:25:41 6.1 6.0-8.3 (g /dL) Final ALT (Alanine aminotransferase) 10/06/2023 11:25:41 35 10-50 (U/L) Karthikeyan suero Performing Location [facility] [address] [place] [address]
--- OUTSIDE RECORDS SUMMARY | 2023-10-09 21:51 | External Medical Summary ---
Author Name Unknown Address Unknown Organization K01:[facility] [place] - [address] [place] [address] Laboratory Report Ordering Provider Test Date Status ARNOLDALBA 09/30/2023 11:05:29 Final Observation Date Value Abnormality Reference (Units) Status Source 09/30/2023 11:05:29 Semi-formed Final Clostridioides difficile toxin and BI-[id number] strain DNA panel - Stool by GRANT with probe detection 09/30/2023 11:05:29 Negative. No C. difficile toxin B gene DNA detected by PCR (Amplified Probe). Negative Final Performing Location [facility] - [address] [place] [address]
--- OUTSIDE RECORDS SUMMARY | 2023-10-09 21:51 | External Medical Summary ---
Author Name Unknown Address Unknown Organization K09:[facility] [place] [address] Laboratory Report Ordering Provider Test Date Status EVELYN STUBBS 10/06/2023 11:25:41 Final Observation Date Value Abnormality Reference (Units ) Status SYNC LEUKOCYTES IN BLOOD BY AUTOMATED COUNT 10/06/2023 11:25:41 16.40 Above high normal 4.00-10.80 (K/uL) Final Neutrophils/100 leukocytes in Blood by Manual count 10/06/2023 11:25:41 92.0 Above high normal 40.0-75.0 (%) Final Lymphocytes/100 leukocytes in Blood by Manual count 10/06/2023 11:25:41 4.0 Below low normal 18.0-42.0 (%) Final Monocytes/100 leukocytes in Blood by Manual count 10/06/2023 11:25:41 4.0 1.0-11.0 (%) Final Neutrophils [#/volume] in Blood by Manual count 10/06/2023 11:25:41 15.09 Above high normal 1.80-7.70 (K/uL) Final Lymphocytes [#/volume] in Blood by Manual count 10/06/2023 11:25:41 0.66 Below low normal 1.00-4.80 (K/uL) Final Monocytes [#/volume] in Blood by Manual count 10/06/2023 11:25:41 0.66 0.00-1.10 (K/uL) Final Nucleated erythrocytes/100 leukocytes [Ratio] in Blood by Automated count 10/06/2023 11:25:41 Final Performing Location [facility] [place] [address]
--- OUTSIDE RECORDS SUMMARY | 2023-10-09 21:51 | External Medical Summary | Summary of Care ---
Author Name Unknown Organization [facility] Address [address] [place] [address] Phone [phone] Care Team Providers Care Systems Software Specialist Name Role Phone Chuy Batista MD Primary Care Provider +1- [phone] Reason for Visit * Reason Onset Date Comments Appointment 09/28/2023 Return in about 4 months (around 01/27/2024) for recheck. Encounter Details Date Type Department Care Team (Late st Contact Info) Description 09/28/2023 Telephone [facility] [address] [place] [address] Chuy Batista MD [address] [place] [address] Appointment (Return in about 4 [...] Information Patient not taking.Reported on 09/28/2023 Nystatin [id number] UNIT/ML Mouth/Throat Suspension 0 09/27/2023 Active amLODIPine [...] mRNA, LNP-s, No Pre serve, 2-Dose Series ([employer]) 05/30/2021,10/29/2020,10/08/2020 COVID-19, LNP-s, No Preserve , Prosper-sucrose, [...] 10/06/2023 11:30 AM EST Office Visit Hematology/Oncology [facility] 200 [facility] [place] [address] Alex Zazueta MD 200 [facility] [place] [address] 10/27/2023 1:00 PM EDT Office Visit Cardiology, [facility] [address] [place] [address] Zak Rubio, DO [address] [place] [address] 11/09/2023 2:30 PM EDT Office Visit Otolaryngology [facility] [address] [place] [address] Dioni Jean-Baptiste, [address] [facility] [place] [address] 11/26/2023 2:20 PM EDT Office Visit Neurology [facility] 200 [facility] [place] [address] Ellie Duncan MD 200 [facility] [place] [address] 11/29/2023 1:00 PM EDT Office Visit [place] [address] [place] [address] Deondre Hill MD [address] [place] [address] 12/16/2023 4:30 PM EDT Office Visit [facility] Disorders Ctr [facility] 132 [place] [phone] Radha Caballero CRNP [address] [facility] [address] 04/21/2024 2:40 PM EDT Office Visit [facility] [address] [place] [address] Chuy Batista MD [address] [place] [address] Health Maintenance Due Date Last Done Comments Albumin/Creatinine Ratio 1963 DTaP,Tdap,and Td Vaccines (1 - Tdap) 1964 Depression Screening 04/29/2021 04/29/2020 COVID-19 Vaccine ( - 2022-24 season) 2023 02/11/2022, 02/11/2022, 05/30/2021, Additional history exists Influenza Vaccine (FLU shot) (#1) 2023 05/29/2022, 05/27/2021, 06/13/2020, Additional history exists GFR 03/14/2024 09/14/2023, 08/17, 09/12/2023, Additional history exists CKD PHOS USE SMARTSET 06594 09/11/202408/17, 09/11/2023, 07/14/2021, Additional history exists CKD HGB USE SMARTSET 40777 09/14/202409/14, 09/13/2023, 09/12/2023, Additional history exists Pneumococcal [...] the patient have Health Care Power of Cam Maker? No Care Teams Systems Software Specialist Relationship Specialty Start Date End Date Chuy Batista MD [address] [place] [address] PCP - General Family Medicine 07/11/14 documented as of this encounter
--- OUTSIDE RECORDS SUMMARY | 2023-10-09 21:51 | External Medical Summary ---
Author Name Unknown Address Unknown Organization K01:[facility] - [address] [place] [address] Laboratory Report Ordering Provider Test Date Status EVELYN STUBBS 10/06/2023 11:25:41 Final Observation Date Value Abnormality Reference (Units ) Status Troponin T 10/06/2023 11:25:41 221 Above upper panic limits <=22 (ng/L) Final Performing Location [facility] - [address] [place] [address]
--- OUTSIDE RECORDS SUMMARY | 2023-10-09 21:52 | External Medical Summary | Summary of Care ---
Author Name Unknown Organization [facility] Address [address] [place] [facility] [place] [place] [address] Phone [phone] Care Team Providers Care Stud Master/Mistress Name Role Phone Chuy Batista MD Primary Care Provider +1- [phone] Reason for Referral * Evaluate & Treat - Unlimited Visits (Within 30 days (routine)) - Pending Review Specialty Diagnoses / Procedures Referred By Monik t Referred To Contact Hematology/Oncology / Hematology Oncology Diagnoses Urothelial carcinoma of bladder (HCC) Chuy Batista MD [address] [place] [address] Referral ID Status Reason Start Date Expiration Date Visits Requested Visits Authorized [id number] Pending Review Specialty Services Required 09/23/2023 999 999 Question Answer Referral Priority Within 30 days (routine) Where should this appointment be scheduled? [facility] Reason for Referral Other - Please Comment Comments Patient states" bladder cancer" Reason for Visit * Reason Onset Date Comments Referral 09/23/2023 Encounter Details Date Type Department Care Team (Late st Contact Info) Description 09/23/2023 Telephone [facility] [address] [place] [facility] [place] [facility] [place] [address] Chuy Batista MD [address] [place] [address] Referral Allergies Active Allergy Reactions Criticality Noted Date Comments Chocolate Diarrhea 05/14/2023 Clindamycin Hcl 09/24/2005 rash Iodinated Contrast Media 10/01/2015 Ioversol Other (Please comment) High 08/10/[address] IV DYE documented as of this encounter (statuses as of 09/24/2023) Medications Medication Sig Dispensed Refills Start Date End Date Status Syringe/Needle, Disp, 25G X 1-1/2" 3 ML MISC To use with injection of hydrocortisone if needed 2 Each 5 08/31/2015 Active Fluticasone Propionate 50 MCG/ACT Nasal Suspension [...] Oral Tablet Take by mouth. 0 Active amLODIPine 1.25 MG OR TABS Take 4 Tablets by mouth in the morning. 0 Active Acetaminophen 325 MG Oral Capsule [...] Wednesday only. 20 Tablet 0 09/15/2023 Active documented as of this encounter (statuses as of 09/24/2023) Active Problems Problem Noted Date Diagnosed Date [...] Overview: basal cell carcinoma (L lower gal[place] /) ANDRZEJ (obstructive sleep apnea) 08/19/2018 Prostate cancer 06/29/2017 Moderate persistent asthma without complication 04/13/2017 Chronic anticoagulation 04/13/2017 Adrenal insufficiency 04/23/2015 Chronic steroid use 02/21/2015 HTN (hypertension) 10/16/2014 History of DVT in adulthood 08/20/2014 History of pulmonary embolism 04/16/2014 Deviated nasal septum 02/03/2006 ANGIOEDEMA 02/25/2005 documented as of this encounter (statuses as of 09/24/2023) Resolved Problems Problem Noted Date Diagnosed Date [...] as of this encounter (statuses as of 09/24/2023) Immunizations Name Administration Dates Next Due COVID-19 mRNA, LNP-s, No Pre serve, 2-Dose Series ([employer]) 05/30/2021,10/29/2020,10/08/2020 COVID-19, LNP-s, No Preserve , Prosper-sucrose, [...] Telephone Encounter - Ania Neal OSA - 09/24/2023 8:32 AM EST I am unable to schedule this. Gave phone numbers to patient's to call and schedule. 09/24/2023 * Telephone Encounter - Chuy Batista MD - 09/23/2023 4:14 PM EST Referral signed - please assist * Telephone Encounter - Chelsi Cao OSA - 09/23/2023 1:47 PM EST Has the patient been seen for this problem? (Y/N)?: y If No, an appt needs to be scheduled before a referral will be placed (exception: proceed with referral request if referral request is for a yearly routine appointment with speciality) Patient Name: rBanden High Patient Primary care provider: Chuy Batista MD Does this need to be an insurance referral (Y/N)?: n If Yes, does the insurance referral need to be placed into the [employer] system?no Name of preferred specialist: Dr. Xavi Gramajo Type of specialist: Hem/Onc Location of specialist: [facility] Phone #: [phone] Specialist's Fax #: [phone] Reason for visit: bladder cancer Date of visit: n/a documented in this encounter Plan of Treatment Upcoming Encounters Date Type Department Care Team (Late st Contact Info) Description 09/28/2023 2:00 PM EST Office Visit [facility] [address] [place] [phone] Chuy Batista MD [address] [place] [address] 10/27/2023 1:00 PM EDT Office Visit Cardiology, [facility] [address] [facility] [place] [address] Zak Rubio, DO [address] [place] [address] 11/09/2023 2:30 PM EDT Office Visit Otolaryngology [facility] [address] [place] [address] Dinoi Jean-Baptiste DO [address] [place] [address] 11/26/2023 2:20 PM EDT Office Visit Neurology [facility] Arleen [place] [address] [place] [address] Ellie Duncan MD [address] [place] [address] 11/29/2023 1:00 PM EDT Office Visit [facility] [address] [place] [phone] DecemberDeondre MD [address] [place] [address] 12/16/2023 4:30 PM EDT Office Visit [facility] [address] [place] [phone] Radha Caballero CRNP [address] [place] [address] Scheduled Referrals Name Type Priority Associated Diagnoses Orde r Schedule HEMATOLOGY/ONCOLOGY REFERRAL OP Referral Within 30 days (routine) Urothelial carcinoma of bladder (HCC) Ordered: 09/23/2023 Health Maintenance Due Date Last Done Comments Albumin/Creatinine Ratio 1963 DTaP,Tdap,and Td Vaccines (1 - Tdap) 1965 Zoster Vaccines (1 of 2) 1996 Depression Screening 04/29/2021 04/29/2020 COVID-19 Vaccine ( season) 2023 02/11/2022, 05/30/2021, 10/29/2020, Additional history exists Influenza Vaccine (FLU shot) (#1) 2023 05/29/2022, 05/27/2021, 06/13/2020, Additional history exists GFR 03/14/2024 09/14/2023, 08/17, 09/12/2023, Additional history exists CKD PHOS USE SMARTSET 68750 09/11/202408/17, 09/11/2023, 07/14/2021, Additional history exists CKD HGB USE SMARTSET 62813 09/14/202409/14, 09/13/2023, 09/12/2023, Additional history exists Pneumococcal Vaccine: 65+ Years Completed 09/24/2020, 07/06/2012 GARDASIL-HPV IMMUNIZATION SERIES Aged Out No longer [...] Diagnosis Urothelial carcinoma of bladder (HCC)- Primary documented in this encounter Advance Directives Latest [...] the patient have Health Care Power of Pump Assembler? No Care Teams Stud Master/Mistress Relationship Specialty Start Date End Date Chuy Batista MD [address] [place] [address] PCP - General Family Medicine 07/11/14 documented as of this encounter
--- OUTSIDE RECORDS SUMMARY | 2023-10-09 21:52 | External Medical Summary | Summary of Care ---
Author Name Unknown Organization [facility] Address [address] [place] [address] Phone [phone] Care Team Providers Care Dynamotor Repairer Name Role Phone Chuy Batista MD Primary Care Provider +1- [phone] Reason for Visit * Reason Onset Date Comments Appointment 09/22/2023 Encounter Details Date Type Department Care Team ([facility] st Contact Info) Description 09/22/2023 Telephone Urology [facility] [address] [place] [address] Services, Scheduling [address] [place] [address] Appointment Allergies Active Allergy Reactions Criticality Noted Date [...] mRNA, LNP-s, No Pre serve, 2-Dose Series ([employer]) 05/30/2021,10/29/2020,10/08/2020 COVID-19, LNP-s, No Preserve , Prosper-sucrose, [...] encounter Miscellaneous Notes * Telephone Encounter - Evelyn Narayan OSA - 09/24/2023 11:35 AM EST Pt's called back and stated that Dr. Maguire requested her to see Dr. Villareal due to his diagnosis of bladder cancer. She asked for a call back to make an appointment ty: [phone] * Telephone Encounter - Maggie Vásquez, RN - 09/24/2023 11:10 AM EST Spoke with spouse to inform her that Dr Maguire is referring her to Lino Villareal [place] [facility] * Telephone Encounter - Rosina Michaud OSA - 09/22/2023 10:13 AM EST Pt.'s Ivet calling to make appt for Pt. Who was diagnosed with Bladder cancer. Pt. Was seen in [facility] told by Neuro to contact Dr. Maguire to make an appt. Call back # [phone] by documented in this encounter Plan of Treatment Upcoming Encounters Date Type Department Care Team (Late st Contact Info) Description 09/28/2023 2:00 PM EST Office Visit [facility] [address] [facility] [phone] Chuy Batista MD [address] [facility] [address] 10/27/2023 1:00 PM EDT Office Visit Cardiology, [facility] [address] [place] [address] Zak Rubio, [address] [place] [address] 11/09/2023 2:30 PM EDT Office Visit Otolaryngology [facility] [address] [place] [address] Dioni Jean-Baptiste DO [address] [place] [address] 11/26/2023 2:20 PM EDT Office Visit [facility] [address] [facility] [place] [address] Ellie Duncan MD [address] [facility] [place] [address] 11/29/2023 1:00 PM EDT Office Visit [place] [phone] [place] [phone] DecemberDeondre MD [address] [place] [address] 12/16/2023 4:30 PM EDT Office [facility] [address] [facility] [place] [phone] Radha Caballero CRNP [address] [facility] [place] [address] Health Maintenance Due Date Last Done Comments Albumin/Creatinine Ratio 1963 DTaP,Tdap,and Td Vaccines (1 - Tdap) 1965 Zoster Vaccines (1 of 2) 1996 Depression Screening 04/29/2021 04/29/2020 COVID-19 Vaccine (5 - 2022-24 season) 2023 02/11/2022, 05/30/2021, 10/29/2020, Additional history exists Influenza Vaccine (FLU shot) (#1) 2023 05/29/2022, 05/27/2021, 06/13/2020, Additional history exists GFR 03/14/2024 09/14/2023, 08/17, 09/12/2023, Additional history exists CKD PHOS USE SMARTSET 94072 09/11/202408/17, 09/11/2023, 07/14/2021, Additional history exists CKD HGB USE SMARTSET 50697 09/14/202409/14, 09/13/2023, 09/12/2023, Additional history exists Pneumococcal [...] the patient have Health Care Power of Underlay Stitcher? No Care Teams Dynamotor Repairer Relationship Specialty Start Date End Date Chuy Batista MD [address] [place] [address] PCP - General Family Medicine 07/11/14 documented as of this encounter
--- OUTSIDE RECORDS SUMMARY | 2023-10-09 21:52 | External Medical Summary | Summary of Care ---
Author Name Unknown Organization [facility] Address [address] [place] [address] Phone [phone] Care Team Providers Care Sap Bw Architect Name Role Phone Chuy Batista MD Primary Care Provider +1- [phone] Reason for Visit * Reason Onset Date Comments Appointment 09/22/2023 Encounter Details Date Type Department Care Team ([facility] st Contact Info) Description 09/22/2023 Telephone Urology [facility] [address] [place] [address] Services, Scheduling [address] [place] [address] Appointment Allergies Active Allergy Reactions Criticality Noted [...] LNP-s, No Pre serve, 2-Dose Series ([employer]) 05/30/2021,10/29/2020,10/08/2020 COVID-19, LNP-s, No Preserve , Prosper-sucrose, [...] encounter Miscellaneous Notes * Telephone Encounter - Maggie Vásquez, RN - 09/24/2023 11:10 AM EST Spoke with spouse to inform her that Dr Maguire is referring her to Lino Villareal at [facility] * Telephone Encounter - Rosina Michaud OSA - 09/22/2023 10:13 AM EST Pt.'s Ivet calling to make appt for Pt. Who was diagnosed with Bladder cancer. Pt. Was seen in [facility] told by Neuro to contact Dr. Maguire to make an appt. Call back # [phone] by documented in this encounter Plan of Treatment Upcoming Encounters Date Type Department Care Team (Late st Contact Info) Description 09/28/2023 2:00 PM EST Office Visit [facility] [address] [place] [address] Chuy Batista MD [address] [place] [address] 10/27/2023 1:00 PM EDT Office Visit Cardiology, [facility] [address] [place] [address] Zak Rubio, DO [address] [place] [address] 11/09/2023 2:30 PM EDT Office Visit Otolaryngology [facility] [address] [place] [address] Dioni Jean-Baptiste DO [address] [place] [address] 11/26/2023 2:20 PM EDT Office Visit Neurology [facility] [place] [address] [facility] [place] [address] Ellie Duncan MD [address] [facility] [place] [address] 11/29/2023 1:00 PM EDT Office Visit [facility] [address] [place] [phone] Deondre Hill MD [address] [place] [address] 12/16/2023 4:30 PM EDT Office Visit [facility] [place] [phone] [facility]ero [facility] [address] [facility] [place] [address] Health Maintenance Due Date Last Done Comments Albumin/Creatinine Ratio 1963 DTaP,Tdap,and Td Vaccines (1 - Tdap) 1965 Zoster Vaccines (1 of 2) 1996 Depression Screening 04/29/2021 04/29/2020 COVID-19 Vaccine (5 - 2022- season) 2023 02/11/2022, 05/30/2021, 10/29/2020, Additional history exists Influenza Vaccine (FLU shot) (#1) 2023 05/29/2022, 05/27/2021, 06/13/2020, Additional history exists GFR 03/14/2024 09/14/2023, 08/17, 09/12/2023, Additional history exists CKD PHOS USE SMARTSET 38338 09/11/202408/17, 09/11/2023, 07/14/2021, Additional history exists CKD HGB USE SMARTSET 46099 09/14/202409/14, 09/13/2023, 09/12/2023, Additional history exists Pneumococcal [...] the patient have Health Care Power of Cushion Filler? No Care Teams Sap Bw Architect Relationship Specialty Start Date End Date Chuy Batista MD [address] [place] [address] PCP - General Family Medicine 07/11/14 documented as of this encounter
--- NOTE | 2023-10-09 21:57 | Emergency Department Note ---
Impression & Plan SOB (shortness of breath), Bladder cancer ED Provider Note NAME: EDWIN ESPANA AGE: 78 SEX: M : 1945 ARRIVES VIA: Ambulance INFORMANT: Patient, ED PROVIDER(S): Deondre Roman MD CHIEF COMPLAINT: Shortness of breath MEDICAL DECISION MAKING: Patient presents due to concern for shortness of breath and PND. IV was established and blood work was obtained. Patient's blood work shows a normal white counts with normal hemoglobin with mild thrombocytopenia at 123. Patient's kidney function with a creatinine 1.29. The patient's troponin and BNP are not elevated. Patient's weight is down compared to his most recent admission. Bio fire negative. Chest x-ray does not appear changed from his most recent. I did speak the on-call hospitalist service Dr. Chung and the patient was admitted to the medicine service. Procedures: Limited Point of Care Cardiac Ultrasound performed by me: Indication: Reported history of pericardial effusion Findings: Limited echocardiography revealed no pericardial fluid. Wall motion appeared grossly normal. HR 80s. Impression: No evidence of tamponade Discussion w/ other healthcare providers: Dr. Chung inpatient medicine service Prior /Outside records reviewed: Reviewed a discharge summary from September 10, [address] Gongora. Patient has a known history of bladder cancer on immunotherapy adrenal insufficiency asthma DVT PE status post IVC filter dementia prostate CA aortic stenosis CKD hypertension who presented with shortness of breath and weakness. Patient reportedly has also been on Keytruda.\\\\ Patient had been transferred to [facility] at that time the patient did have elevated troponins. The patient did have a TTE completed which showed normal EF without any new wall motion abnormality. 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 Patient did have a TTE report which is noted with an LVEF of 65 to 69%. Moderate aortic valve stenosis noted and the patient did have a trivial circumferential pericardial effusion. Patient's cardiac MRI showed normal biventricular systolic function with mild myocardial edema inflammation noted in the basal to mid septal segments.'s were indicative of mild myocarditis. Mild circumferential pericardial effusion ascending aorta mildly dilated. Calculated RVEF is 56%. No evidence [place]. Differential diagnosis: Reactive airway disease, pneumonia, pneumothorax, COPD, CHF, ACS, pulmonary embolism, musculoskeletal, GERD as well as other pathologies were considered. Diagnostics, as interpreted by me: ECG:Normal sinus rhythm, rate of 82, normal intervals, normal axis no ST elevations no significant change for comparison September 06, 2023 Cardiac monitoring: An order was placed for continuous cardiac monitoring. The monitor shows a rate of 85 with sinus rhythm. Patient was placed on pulse oximetry Medical decision rules: None Imaging studies: I informally interpreted the patient's chest x-ray does not show obvious pneumonia or pneumothorax with formal report to follow. HPI: Patient presents from home due to concern for shortness of breath. The patient states that he developed PND after laying down woke up short of breath. Patient also has had associated MORA. The patient has had cough but it has been nonproductive. The patient did have recent admission here at this hospital with subsequent transfer to [facility]. The patient's is also present who provides additional history and was concerned as they were told that him being on his Keytruda treatment had caused some damage to his heart and some associated fluid around the heart. Patient currently feels well sitting more upright at rest. The patient states he does have chronic lower extremity edema right greater than left. Patient has a cough but it is nonproductive. Patient is a non-smoker. He does have a history of bladder cancer and does follow with Dr. Gramajo with [facility] oncology and has a referral pending to go to the [facility]. Patient has had decreased p.o. intake and appetite loss over the last several months and has noticed a drop in his weight. Patient denies any abdominal pain or nausea vomiting. PAST MEDICAL HISTORY: See Below PAST SURGICAL HISTORY: See Below SOCIAL HISTORY: See Below HOME MEDICATIONS: See Below ALLERGIES: See Below VITALS: See Below PHYSICAL EXAMINATION: GENERAL: NAD, non-toxic. EYE EXAM: Normal conjunctiva. PERRL, no anisocoria and EOM's grossly intact w/o pain. OROPHARYNX: Moist mucus membranes, grossly normal dentition. NECK: Trachea midline, no stridor. Supple, no nuchal rigidity, no adenopathy, non-tender. No signs of meningismus. FROM of the neck with good chin to chest and neck extension. LUNGS: Clear to auscultation. Normal chest wall mechanics. HEART: NSR, systolic ejection murmur. ABDOMEN: Abdomen soft, non-tender, no masses, no rebound or guarding. BACK: No CVA TTP. SKIN: No rashes and no bruising. UPPER EXTREMITIES: Upper extremities are grossly normal. LOWER EXTREMITIES: Grossly normal, right greater than left lower extremity edema without any calf pain or erythema. NEURO EXAM: A&O x3, cranial nerves II-XII grossly intact, normal speech, moves all 4 extremities. Past Med/Surg History Medical History History of recent blood transfusion Bladder cancer Weakness Mild cognitive impairment, so stated Anemia (06/25/23)to start receiving iron infusions Radiation cystitis Kidney stones x1 episode. no surgery needed. 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 Chronic steroid use Sleep apnea Cpap Cardiac arrest hx r/t IV Contrast Dye "many years ago" History of pulmonary embolism hx "many years ago" unknown etiology History of DVT (deep vein thrombosis) hx "many years ago" unknown etiology acute on chronic DVT during 12/2022 [facility] admission- Coumadin d/c'ed due to anemia and hematuria; IVC filter placed 12/28/22 Stage 3 chronic kidney disease Ascending aorta dilation Mild- 4.4cm per 11/2022 ECHO Aortic stenosis Mild per 12/2022 ECHO -follows annually with cardiology Adrenal insufficiency Allergic rhinitis Asthma (10/03/11) well controlled. Benign prostatic hyperplasia Contrast media allergy Venous insufficiency (chronic) (peripheral) Hiatal hernia COPD (chronic obstructive pulmonary disease) well controlled. uses Breo daily with exercise Surgical History S/P IVC filter S/P cataract extraction History of right cataract extraction History of colonoscopy H/O sinus surgery History of appendectomy S/P TURP (status post transurethral resection of prostate) Status post cystoscopy (11/07/13) Family History Father Prostate cancer Brother Prostate cancer Mother Thyroid cancer Cancer Other No family history of adverse response to anesthesia Social History Smoking Status: Never smoker Tobacco Type: Cigarettes Second Hand Exposure: No; Do You Dip or Chew Tobacco: No; Hx Alcohol Use: Yes Alcohol type: beer and wine Alcohol Intake Frequency: Monthly or Less Hx Substance Use: No Preferred Language: Kyrgyz Communication Ability: Effective Visual Impairment: Limited Hearing Ability: Normal Provider Relations Specialist Required: No Beliefs That Will Affect Care: None marital status: Current Living Situation: Spouse Current Living Situation Comment: at home with current occupational status: retired How many Children do You have: 0 Other Information That Helps Us Care for You: No Feels Safe at Home: Yes Safety Concerns: Feels Safe At This Time Diet: regular during the past year weight has: decreased > 10 lbs Seatbelt Use: always Do you think of yourself as: straight/heterosexual Gender Identity: Male Assistive Devices: Glasses and Walker Allergies Allergies Allergy/AdvReac Type Severity Reaction Status Date / Time Iodinated Contrast Media Allergy Severe LOVERSOL---CARDIAC Verified 10/09/23 22:[address] CONTRAST clindamycin Allergy Intermediate Rash Verified 10/09/23 22:15 chocolate flavor AdvReac Severe DIARRHEA/ Verified 10/09/23 22:15 Cannot take, interacts w/ medications. cranberry AdvReac Severe Cannot Verified 10/09/23 22:15 take, interacts w/ medications. pembrolizumab [From [employer]] AdvReac Intermediate myocarditis Verified 10/10/23 05:08 Home Meds Home Medications Medication Instructions Recorded Confirmed donepezil 10 mg tablet 10 mg PO QAM 04/13/22 10/09/23 ascorbic acid (vitamin C) 1,000 mg 1,000 mg PO QAM 08/27/22 10/09/23 tablet (Vitamin C) epinephrine 0.3 mg/0.3 mL 0.3 mg IM DIRECTED PRN 11/30/22 10/09/23 injection, auto-injector anaphylaxis memantine 10 mg tablet 10 mg PO BID 11/30/22 10/09/23 montelukast 10 mg tablet 10 mg PO DAILY 11/30/22 10/09/23 fluticasone fur. 200 mcg-umeclid 1 inh inhalation QPM 12/12/22 10/09/23 62.5 mcg-vilant 25 mcg inhalat.powder (Trelegy Ellipta) fluticasone propionate 50 2 spray intranasal DAILY 12/12/22 10/09/23 mcg/actuation nasal spray,suspension ferrous sulfate 325 mg (65 mg 325 mg PO DAILY 04/07/23 10/09/23 iron) tablet,delayed release acetaminophen 325 mg tablet 650 mg PO Q4H PRN PAIN/FEVER 10/09/23 10/09/23 (Tylenol) amlodipine 5 mg tablet (Norvasc) 5 mg PO QAM 10/09/23 10/09/23 ipratropium 0.5 mg-albuterol 3 mg 3 ml inhalation Q6H PRN Shortness 10/09/23 10/09/23 (2.5 mg base)/3 mL nebulization Of Breath Or Wheezing soln multivitamin with minerals-folic 1 tab PO DAILY 10/09/23 10/09/23 acid 200 mcg chewable tablet (Multivitamin Gummies) omeprazole 20 mg capsule,delayed 20 mg PO DAILY 10/09/23 10/09/23 release prednisone 20 mg tablet 80 mg PO DAILY 10/09/23 10/09/23 sennosides 8.6 mg-docusate sodium 1 tab-cap PO DAILY PRN Constipation 10/09/23 10/09/23 50 mg tablet (Senna Plus) sulfamethoxazole 800 1 tab PO 3XWK 10/09/23 10/09/23 mg-trimethoprim 160 mg tablet Results & Data (ED) Vital Signs Vital Signs - 24 hr 10/09/23 21:49 10/09/23 22:00 10/09/23 22:06 Temperature Temperature Source Pulse Rate - Lying Pulse Rate - Sitting Pulse Rate 84 98 H Pulse Rate from SpO2 Sensor 98 H Pulse Rhythm Pulse Strength Respiratory Rate 30 H Respiratory Effort / Characteristics Non-Labored Spontaneous Respiratory Depth Normal Respiratory Pattern Regular Blood Pressure - Lying Blood Pressure - Sitting Blood Pressure 119/74 Blood Pressure Mean 89 Blood Pressure Position Pulse Oximetry 97 Oxygen Delivery Method Room Air Room Air Sepsis Recent Fever Within 48 Hours Sepsis New/Unexplained Change in Mental Status Sepsis Action Taken by Nursing 10/09/23 22:06 10/09/23 22:06 10/09/23 22:30 Temperature 36.5 C Temperature Source Oral Pulse Rate - Lying Pulse Rate - Sitting Pulse Rate 100 H 82 Pulse Rate from SpO2 Sensor 82 Pulse Rhythm Regular Pulse Strength Normal Respiratory Rate 24 26 H Respiratory Effort / Characteristics Non-Labored Spontaneous Respiratory Depth Normal Respiratory Pattern Regular Blood Pressure - Lying Blood Pressure - Sitting Blood Pressure 120/88 140/82 Blood Pressure Mean 98 101 Blood Pressure Position Lying Pulse Oximetry 97 97 Oxygen Delivery Method Room Air Room Air Room Air Sepsis Recent Fever Within 48 Hours No Sepsis New/Unexplained Change in Mental Status N/A Sepsis Action Taken by Nursing No Action Required 10/09/23 22:32 10/09/23 23:00 10/09/23 23:30 Temperature Temperature Source Pulse Rate - Lying Pulse Rate - Sitting Pulse Rate 85 78 72 Pulse Rate from SpO2 Sensor 77 72 Pulse Rhythm Regular Pulse Strength Respiratory Rate 23 20 22 Respiratory Effort / Characteristics Respiratory Depth Respiratory Pattern Blood Pressure - Lying Blood Pressure - Sitting Blood Pressure 143/85 H 154/89 H Blood Pressure Mean 104 110 Blood Pressure Position Pulse Oximetry 97 97 98 Oxygen Delivery Method Room Air Room Air Room Air Sepsis Recent Fever Within 48 Hours Sepsis New/Unexplained Change in Mental Status Sepsis Action Taken by Nursing 10/10/23 00:00 10/10/23 00:30 10/10/23 01:00 Temperature Temperature Source Pulse Rate - Lying Pulse Rate - Sitting Pulse Rate 70 71 73 Pulse Rate from SpO2 Sensor 69 69 70 Pulse Rhythm Pulse Strength Respiratory Rate 20 18 24 Respiratory Effort / Characteristics Respiratory Depth Respiratory Pattern Blood Pressure - Lying Blood Pressure - Sitting Blood Pressure 153/86 H 149/84 H 158/64 H Blood Pressure Mean 108 105 95 Blood Pressure Position Pulse Oximetry 98 98 97 Oxygen Delivery Method Room Air Room Air Room Air Sepsis Recent Fever Within 48 Hours Sepsis New/Unexplained Change in Mental Status Sepsis Action Taken by Nursing 10/10/23 01:00 Temperature Temperature Source Pulse Rate - Lying 90 Pulse Rate - Sitting 88 Pulse Rate Pulse Rate from SpO2 Sensor Pulse Rhythm Pulse Strength Respiratory Rate Respiratory Effort / Characteristics Respiratory Depth Respiratory Pattern Blood Pressure - Lying 164/87 H Blood Pressure - Sitting 157/94 H Blood Pressure Blood Pressure Mean Blood Pressure Position Pulse Oximetry Oxygen Delivery Method Sepsis Recent Fever Within 48 Hours Sepsis New/Unexplained Change in Mental Status Sepsis Action Taken by Care Home Medications Current Medication List: was personally reviewed by me Laboratory Data Attestation: I reviewed the patient's lab results. 10/10/23 05:59 10/10/23 05:59 Lab Results 10/09/23 Range/Units 22:00 WBC 10.01 (4.8-10.8) K/ul RBC 5.08 (4.70-6.10) M/uL Hgb 14.7 (14.0-18.0) g/dl Hct 44.8 (42.0-52.0) % MCV 88.2 (80.0-100.0) fL MCH 28.9 (25.0-34.0) pg MCHC 32.8 (32.0-36.0) g/dL RDW Std Deviation 51.8 H (36.4-46.3) fL RDW Coeff of Robert 15.9 H (11.5-14.5) % Plt Count 123 L (130-400) K/uL MPV 9.3 L (9.4-12.4) fL Immature Gran % (Auto) 1.2 % Neut % (Auto) 91.2 % Lymph % (Auto) 4.4 % Barbour % (Auto) 3.1 % Eos % (Auto) 0.0 % Baso % (Auto) 0.1 % Neut # (Auto) 9.13 H (1.40-6.50) K/uL Lymph # (Auto) 0.44 L (1.20-3.40) K/uL Barbour # (Auto) 0.31 (0.11-0.59) K/uL Eos # (Auto) 0.00 (0.00-0.50) K/uL Baso # (Auto) 0.01 (0.00-0.20) K/uL Immature Gran # (Auto) 0.12 (0.01-0.20) K/uL PT 10.9 (9.0-12.0) Seconds INR 1.0 (0.9-1.1) APTT < 20 L (21-31) Seconds PTT Ratio 0.7 Sodium 136 (136-145) mmol/L Potassium 4.0 (3.5-5.1) mmol/L Chloride 102 (98-107) mmol/L Carbon Dioxide 22 (21-32) mmol/L Anion Gap 12 H (3-11) BUN 38 H (6-23) mg/dl Creatinine 1.29 (0.6-1.4) mg/dl Est Cr Clr Drug Dosing Not Reportable Est GFR ( Amer) 61.6 ml/min Est GFR (Non-Af Amer) 53.1 ml/min BUN/Creatinine Ratio 29.5 H (10-20) Glucose 167 H (70-99(Fasting)) mg/dl Calcium 8.5 L (8.6-10.3) mg/dl Magnesium 2.1 (1.7-2.4) mg/dl Total Bilirubin 0.7 (0.2-1.0) mg/dl AST 14 (13-39) U/L ALT 35 (7-52) U/L Alkaline Phosphatase 47 (34-104) U/L Troponin I High Sens 11.9 (0-20) pg/ml B-Natriuretic Peptide 23 (0-100) pg/ml Total Protein 5.8 L (6.0-8.3) gm/dl Albumin 3.6 (3.4-5.0) gm/dl Globulin 2.2 L (2.5-4.0) gm/dl Albumin/Globulin Ratio 1.6 (0.9-2) Adenovirus (PCR) Not Detected (NotDetected) B. pertussis DNA (PCR) Not Detected (NotDetected) B.parapertussis DNA PCR Not Detected (NotDetected) C. pneumoniae DNA (PCR) Not Detected (NotDetected) Coronavirus OC43 (PCR) Not Detected (NotDetected) Coronavirus HKU1 (PCR) Not Detected (NotDetected) Coronavirus 229E (PCR) Not Detected (NotDetected) SARS-CoV-2 (PCR) Not Detected (NotDetected) Coronavirus NL63 (PCR) Not Detected (NotDetected) Human Metapneumovir PCR Not Detected (NotDetected) Influenza Type A (PCR) Not Detected (NotDetected) Influenza Type B (PCR) Not Detected (NotDetected) M. pneumoniae (PCR) Not Detected (NotDetected) Parainfluenza 1 (PCR) Not Detected (NotDetected) Parainfluenza 2 (PCR) Not Detected (NotDetected) Parainfluenza 3 (PCR) Not Detected (NotDetected) Parainfluenza 4 (PCR) Not Detected (NotDetected) RSV (PCR) Not Detected (NotDetected) Entero/Rhino (PCR) Not Detected (NotDetected) Administered Medications Albuterol (Albut/Ipratrop 3mg/0.5mg Neb 3 Ml Vial) 3 ml NEB QIDR [facility]; Protocol Stop: 11/09/23 06:59 Last Admin: 10/10/23 14:21 Dose: 3 ml Documented By: [email or web address] Admin: 10/10/23 11:12 Dose: 3 ml Documented By: [id number] Admin: 10/10/23 07:00 Dose: 3 ml Documented By: [id number] Amlodipine Besylate (Amlodipine Besylate 5 Mg Tab) [facility] Stop: 11/09/23 08:59 Last Admin: 10/10/23 10:04 Dose: 5 mg Documented By: KAMALJIT Donepezil HCl (Donepezil Hcl 10 Mg Tab) [facility] Stop: 11/09/23 08:59 Last Admin: 10/10/23 10:04 Dose: 10 mg Documented By: KAMALJIT Ferrous Sulfate (Ferrous Sulfate 325 Mg Tab) 325 mg PO DAILY [facility] Stop: 11/09/23 08:59 Last Admin: 10/10/23 10:04 Dose: 325 mg Documented By: KAMALJIT Fluticasone Furoate (Fluticasone Furoate 200mcg 14 Puffs/Inhaler) 1 puffs INH DAILY [facility] Stop: 11/09/23 08:59 Last Admin: 10/10/23 10:05 Dose: 1 puffs Documented By: KAMALJIT Fluticasone Propionate (Fluticasone Propionate Na Spr 16 Gm Btl) 2 sprays NA DAILY [facility] Stop: 11/09/23 08:59 Last Admin: 10/10/23 10:06 Dose: 2 sprays Documented By: KAMALJIT Sodium Chloride (Nss) 1,000 mls @ 50 mls/hr IV .Q20H ONE Stop: 10/10/23 20:56 Last Admin: 10/10/23 01:59 Dose: 50 mls/hr Documented By: ANTHONY Ceftriaxone Sodium 2,000 mg/ (Dextrose) 50 mls @ 100 mls/hr IV Q24H [facility]; Protocol Stop: 10/15/23 08:44 Last Infusion: 10/10/23 11:44 Dose: Infused Documented By: Admin: 10/10/23 10:15 Dose: 100 mls/hr Documented By: KAMALJIT Memantine (Memantine Hcl 10 Mg Tab) 10 mg PO BID [facility] Stop: 11/09/23 08:59 Last Admin: 10/10/23 10:07 Dose: 10 mg Documented By: KAMALJIT Montelukast Sodium (Montelukast Sodium 10 Mg Tablet) 10 mg PO DAILY TAWNY Stop: 11/09/23 08:59 Last Admin: 10/10/23 10:03 Dose: 10 mg Documented By: KAMALJIT Multivitamins/Minerals (Cerovite Adv Formula Tab) 1 tab PO DAILY TAWNY Stop: 11/09/23 08:59 Last Admin: 10/10/23 10:04 Dose: 1 tab Documented By: KAMALJIT Pantoprazole Sodium (Pantoprazole 40 Mg Tab) 40 mg PO DAILY TAWNY Stop: 11/09/23 08:59 Last Admin: 10/10/23 10:04 Dose: 40 mg Documented By: KAMALJIT Prednisone (Prednisone 20 Mg Tab) 80 mg PO DAILY TAWNY Stop: 11/09/23 08:59 Last Admin: 10/10/23 10:04 Dose: 80 mg Documented By: KAMALJIT Umeclidinium/Vilanterol (Umeclidinium/Vilanterol 62.5/25mcg 7 Puffs/Inhaler) 1 puffs INH DAILY TAWNY Stop: 11/09/23 08:59 Last Admin: 10/10/23 10:05 Dose: 1 puffs Documented By: KAMALJIT Discontinued Medications Albuterol (Albut/Ipratrop 3mg/0.5mg Neb 3 Ml Vial) 3 ml NEB NOW STA; Protocol Stop: 10/10/23 00:57 Last Admin: 10/10/23 01:59 Dose: 3 ml Documented By: ANTHONY Doxycycline Hyclate 100 mg/ (Dextrose) 100 mls @ 50 mls/hr IV NOW STA Stop: 10/10/23 05:13 Last Infusion: 10/10/23 06:23 Dose: Infused Documented By: Admin: 10/10/23 03:55 Dose: 50 mls/hr Documented By: DEANNA Potassium Chloride (Potassium Chloride Crtab 20 Meq Tabcr) 40 meq PO ONE ONE Stop: 10/10/23 08:11 Last Admin: 10/10/23 10:00 Dose: 40 meq Documented By: KAMALJIT Imaging Data Radiologist's Impression: Chest X-Ray 10/09/23 22:03 XR chest 1V portable HISTORY: Dyspnea COMPARISON: Chest 09/10/2023. FINDINGS: There are low lung volumes. No pneumothorax. No pleural effusions. Mild elevation the right hemidiaphragm with bibasilar linear densities. This favors subsegmental atelectasis. This is similar to the prior study. No new focal lung consolidations to suggest a pneumonia. No evidence for pulmonary edema. The heart remains borderline enlarged. No acute fractures. IMPRESSION: No significant change compared to the prior study. No acute process. ACT 112: Negative or not required by law. Electronically signed by: Des Harrison M.D. 10/10/2023 8:01 AM Discharge Plan Visit Data Chief Complaint: Shortness of Breath/Dyspnea ED Provider: Deondre Roman Discharge Problem: SOB (shortness of breath), Bladder cancer Patient Disposition: Admitted As Inpatient Discharge Instructions Interventions: ED Discharge Assessment Last Done: 10/10/23 02:13
[2023-10-09 22:17] LABS: Hematocrit (blood only) 44.8 % (42.0-52.0); Hemoglobin 14.7 g/dl (14.0-18.0); Mean Corpuscular Hemoglobin 28.9 pg (25.0-34.0); Mean Corpuscular Hgb Conc 32.8 g/dL (32.0-36.0); Mean Corpuscular Volume 88.2 fL (80.0-100.0); Mean Platelet Volume 9.3 fL (9.4-12.4); Platelet Count 123 K/uL (130-400); RDW Coefficient of Variation 15.9 % (11.5-14.5); RDW Standard Deviation 51.8 fL (36.4-46.3); Red Blood Count 5.08 M/uL (4.70-6.10); White Blood Count 10.01 K/ul (4.8-10.8)
[2023-10-09 22:35] LABS: Alanine Aminotransferase 35 U/L (7-52); Albumin Globulin Ratio 1.6 (0.9-2); Albumin Level 3.6 gm/dl (3.4-5.0); Alkaline Phosphatase 47 U/L (34-104); Anion Gap 12 (3-11); Aspartate Aminotransferase 14 U/L (13-39); BUN Creatinine Ratio 29.5 (10-20); Bilirubin,Total 0.7 mg/dl (0.2-1.0); Blood Urea Nitrogen 38 mg/dl (6-23); Calcium 8.5 mg/dl (8.6-10.3); Carbon Dioxide 22 mmol/L (21-32); Chloride 102 mmol/L (98-107); Est GFR (African American) 61.6 ml/min; Est GFR (Non-African American) 53.1 ml/min; Globulin 2.2 gm/dl (2.5-4.0); Glucose 167 mg/dl (70-99(Fasting)); Magnesium 2.1 mg/dl (1.7-2.4); Sodium 136 mmol/L (136-145); Total Protein 5.8 gm/dl (6.0-8.3)
[2023-10-09 22:37] LABS: Basophils # (auto) 0.01 K/uL (0.00-0.20); Basophils % (auto) 0.1 %; Immature Granulocytes # (auto) 0.12 K/uL (0.01-0.20); Immature Granulocytes % (auto) 1.2 %; Lymphocytes # (auto) 0.44 K/uL (1.20-3.40); Lymphocytes % (auto) 4.4 %; Monocytes # (auto) 0.31 K/uL (0.11-0.59); Monocytes % (auto) 3.1 %; Neutrophils # (auto) 9.13 K/uL (1.40-6.50); Neutrophils % (auto) 91.2 %
[2023-10-09 23:13] LABS: Adenovirus PCR Not Detected (NotDetected); Bordetella parapertussis PCR Not Detected (NotDetected); Bordetella pertussis PCR Not Detected (NotDetected); Chlamydia pneumoniae PCR Not Detected (NotDetected); Coronavirus 229E PCR Not Detected (NotDetected); Coronavirus CoV-2 (COVID19)PCR Not Detected (NotDetected); Coronavirus HKU1 PCR Not Detected (NotDetected); Coronavirus NL63 PCR Not Detected (NotDetected); Coronavirus OC43PCR Not Detected (NotDetected); Human Metapneumovirus PCR Not Detected (NotDetected); Influenza A PCR Not Detected (NotDetected); Influenza B PCR Not Detected (NotDetected); Mycoplasma pneumoniae PCR Not Detected (NotDetected); Parainfluenza Virus 1 PCR Not Detected (NotDetected); Parainfluenza Virus 2 PCR Not Detected (NotDetected); Parainfluenza Virus 3 PCR Not Detected (NotDetected); Parainfluenza Virus 4 PCR Not Detected (NotDetected); Respiratory Syncytial VirusPCR Not Detected (NotDetected); Rhinovirus/Enterovirus PCR Not Detected (NotDetected)
[2023-10-09 23:29] LABS: Troponin I High Sensitivity 11.9 pg/ml (0-20)
[2023-10-09 23:44] LABS: Partial Thromboplastin Ratio 0.7; Prothrombin Time 10.9 Seconds (9.0-12.0)
[2023-10-09 23:51] LABS: Partial Thromboplastin Time < 20 Seconds (21-31)
--- NOTE | 2023-10-10 00:56 | History & Physical Report ---
Date of Service October 10, 2023 Assessment & Plan (1) SOB (shortness of breath): Plan: Multifactorial: Viral RTI with superimposed bacterial infection, immunocompromised patient given current steroid Rx for Keytruda myocarditis, history of adrenal insufficiency Underlying pulmonary hypertension, hx bronchial asthma/COPD, ANDRZEJ (not currently using CPAP machine due to need for new orders as per PCP notes) Mild clinical dehydration given hemoconcentration possibly from diarrhea symptoms rule out C. difficile Deconditioning Valvular heart disease (moderate , mild AR) hypertension, slightly elevated history PE DVT status post IVC filter placement chronic anemia, hemoglobin better than baseline secondary to hemoconcentration Mild cognitive impairment, patient mentating well on regimen hx BPH prostate cancer status post radiation bladder cancer status post surgery off Keytruda secondary to myocarditis Steroid-induced hyperglycemia likely prediabetes with documented hemoglobin A1c of 5.7 from 2020 Thrombocytopenia OBS Medical telemetry Doxycycline for atypical infection Nebs RTC for now given COPD history (patient without overt wheezing on exam however.) Facilitate CPAP inpatient, outpatient [facility] follow-up eval IVF Repeat stool C. difficile, initiate antidiarrheal if negative Outpatient follow-up with [facility] for patient's myocarditis. Steroid taper may need to be coordinated with patient's [facility] polysom tech in light of history adrenal insufficiency/past hydrocortisone Rx. Update hemoglobin A1c PT OT eval, may need rehab placement DVT prophylaxis. SCDs Re: Thrombocytopenia Full code Patient requesting updates for providers. Ms. [place], contact numbers [phone]. Text document was generated using [employer] voice recognition software. It may contain grammatical or spelling errors. Kindly contact undersigned for clarification of any documentation item in question. History of Present Illness Chief Complaint: Shortness of breath, increasing weakness, lightheadedness Primary Care Provider: Dr. Batista History obtained from patient, family, and records. 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 09/06-09/10 [facility] confinement for shortness of breath attributed to suspected PE. Patient transferred to [facility] to facilitate VQ scan due to IV contrast allergy. 09/10-09/11 Low probability pulm embolism on VQ scan. Concern for myocarditis secondary to cardiac toxicity from Keytruda. Patient transferred to [facility] for further evaluation. 09/11-09/14 Myocarditis confirmed on cardiac MRI. TTE 65 to 69%, trivial circumferential pericardial effusion. Patient discharged on high-dose prednisone in place of chronic steroids for patient's adrenal insufficiency indefinitely. Patient to follow-up with local [facility] identity management consultant. Patient subsequently discharged to [facility] for rehab before returning home last week. Patient and feel he was discharged too early from facility. Prednisone daily dose decreased from 100 mg to [address] [facility] oncologist on outpatient visit 4 days ago. Medications should be tapered over 8 to 12 weeks time as per documentation. Last few days, patient noted cough symptoms productive of junky sputum. Denies aspiration. Worsening shortness of breath. No chest pain. No unusual leg swelling. No fever, no chills. Generalized weakness and lightheadedness. Denies headache symptoms. Denies depression. Chronic diarrhea over the last few weeks. No belly pain. Outpatient stool C. difficile test from 10 days ago negative. Patient brought to ER by for evaluation. Medical History as above Surgical History : Sinus surgery, appendectomy, cataract surgery, TURP, IVC filter placement, TURBT Family History : Thyroid cancer, prostate cancer Personal/Social history : Non-smoker, no EtOH intake, lives with Allergies Allergy/AdvReac Type Severity Reaction Status Date / Time Iodinated Contrast Media Allergy Severe LOVERSOL---CARDIAC Verified 10/09/23 22:[address] CONTRAST clindamycin Allergy Intermediate Rash Verified 10/09/23 22:15 chocolate flavor AdvReac Severe DIARRHEA/ Verified 10/09/23 22:15 Cannot take, interacts w/ medications. cranberry AdvReac Severe Cannot Verified 10/09/23 22:15 take, interacts w/ medications. pembrolizumab [From Keytruda] AdvReac Intermediate myocarditis Verified 10/10/23 05:08 Home Medications Medication Instructions Recorded Confirmed Type donepezil 10 mg tablet 10 mg PO QAM 08/29/22 02/24/24 History ascorbic acid (vitamin C) 1,000 mg 1,000 mg PO QAM 08/27/22 10/09/23 History tablet (Vitamin C) epinephrine 0.3 mg/0.3 mL 0.3 mg IM DIRECTED PRN 11/30/22 10/09/23 History injection, auto-injector anaphylaxis memantine 10 mg tablet 10 mg PO BID 11/30/22 10/09/23 History montelukast 10 mg tablet 10 mg PO DAILY 11/30/22 10/09/23 History fluticasone fur. 200 mcg-umeclid 1 inh inhalation QPM 12/12/22 10/09/23 History 62.5 mcg-vilant 25 mcg inhalat.powder (Trelegy Ellipta) fluticasone propionate 50 2 spray intranasal DAILY 12/12/22 10/09/23 History mcg/actuation nasal spray,suspension ferrous sulfate 325 mg (65 mg 325 mg PO DAILY 04/07/23 10/09/23 History iron) tablet,delayed release acetaminophen 325 mg tablet 650 mg PO Q4H PRN PAIN/FEVER 10/09/23 10/09/23 History (Tylenol) amlodipine 5 mg tablet (Norvasc) 5 mg PO QAM 10/09/23 10/09/23 History ipratropium 0.5 mg-albuterol 3 mg 3 ml inhalation Q6H PRN Shortness 10/09/23 10/09/23 History (2.5 mg base)/3 mL nebulization Of Breath Or Wheezing soln multivitamin with minerals-folic 1 tab PO DAILY 10/09/23 10/09/23 History acid 200 mcg chewable tablet (Multivitamin Gummies) omeprazole 20 mg capsule,delayed 20 mg PO DAILY 10/09/23 10/09/23 History release prednisone 20 mg tablet 80 mg PO DAILY 10/09/23 10/09/23 History sennosides 8.6 mg-docusate sodium 1 tab-cap PO DAILY PRN Constipation 10/09/23 10/09/23 History 50 mg tablet (Senna Plus) sulfamethoxazole 800 1 tab PO 3XWK 10/09/23 10/09/23 History mg-trimethoprim 160 mg tablet Past Med/Surg History Medical History (Updated 09/13/23 @ 00:08 by Background Daemon) History of recent blood transfusion Bladder cancer Weakness Mild cognitive impairment, so stated Anemia (06/25/23)to start receiving iron infusions Radiation cystitis Kidney stones x1 episode. no surgery needed. Hx of prostatic malignancy ~ 2013- s/p Lupron and XRT [place]'s disease follows with Endocrinology [facility] on hydrocortisone Chronic steroid use Sleep apnea Cpap Cardiac arrest hx r/t IV Contrast Dye "many years ago" History of pulmonary embolism hx "many years ago" unknown etiology History of DVT (deep vein thrombosis) hx "many years ago" unknown etiology acute on chronic DVT during 12/2022 [facility] admission- Coumadin d/c'ed due to anemia and hematuria; IVC filter placed 12/28/22 Stage 3 chronic kidney disease Ascending aorta dilation Mild- 4.4cm per 11/2022 ECHO Aortic stenosis Mild per 12/2022 ECHO -follows annually with cardiology Adrenal insufficiency Allergic rhinitis Asthma (10/03/11) well controlled. Benign prostatic hyperplasia Contrast media allergy Venous insufficiency (chronic) (peripheral) Hiatal hernia COPD (chronic obstructive pulmonary disease) well controlled. uses Breo daily with exercise Surgical History (Updated 09/13/23 @ 00:08 by Background Daemon) S/P IVC filter S/P cataract extraction History of right cataract extraction History of colonoscopy H/O sinus surgery History of appendectomy S/P TURP (status post transurethral resection of prostate) Status post cystoscopy (11/07/13) Family History Father Prostate cancer Brother Prostate cancer Mother Thyroid cancer Cancer Other No family history of adverse response to anesthesia Social History Smoking Status: Never smoker Tobacco Type: Cigarettes Second Hand Exposure: No; Do You Dip or Chew Tobacco: No; Hx Alcohol Use: Yes Alcohol type: beer and wine Alcohol Intake Frequency: Monthly or Less Hx Substance Use: No Preferred Language: Icelandic Communication Ability: Effective Visual Impairment: Limited Hearing Ability: Normal Classroom Aide Required: No Beliefs That Will Affect Care: None marital status: Current Living Situation: Spouse Current Living Situation Comment: at home with current occupational status: retired How many Children do You have: 0 Other Information That Helps Us Care for You: No Feels Safe at Home: Yes Safety Concerns: Feels Safe At This Time Diet: regular during the past year weight has: decreased > 10 lbs Seatbelt Use: always Do you think of yourself as: straight/heterosexual Gender Identity: Male Assistive Devices: Glasses and Walker Review of Systems Review of Systems: As per HPI, all other systems reviewed and negative Physical Exam Physical Exam: GENERAL: Comfortable, slightly anxious, no respiratory distress SKIN: Pallor, warm HEENT: Pale palpebral conjunctivae, no ptosis, dry buccal mucosa NECK : Supple, no tenderness CHEST : CTA, no tenderness HEART : RRR, systolic murmur ABDOMEN: Some distention, nontender EXTREMITIES : Bilateral LE swelling (right greater than left, chronic as per patient) without tenderness, no other conspicuous deformities noted NEUROLOGIC : Coherent, no facial asymmetry, gait and stance not assessed Results & Data Results & Data Vital Signs (Past 12 Hours) Vital Signs Temp Pulse Resp BP Pulse Ox O2 Del Method 10/10/23 00:30 71 18 149/84 H 98 Room Air 10/10/23 00:00 70 20 153/86 H 98 Room Air 10/09/23 23:30 72 22 154/89 H 98 Room Air 10/09/23 23:00 78 20 143/85 H 97 Room Air 10/09/23 22:32 85 23 97 Room Air 10/09/23 22:30 82 26 H 140/82 97 Room Air 10/09/23 22:06 Room Air 10/09/23 22:06 36.5 C 100 H 24 120/88 97 Room Air 10/09/23 22:06 Room Air 10/09/23 22:00 98 H 30 H 119/74 97 Room Air 10/09/23 21:49 84 Laboratory Results Laboratory Results WBC 10.01 K/ul (4.8-10.8) 10/09/23 22:00 RBC 5.08 M/uL (4.70-6.10) 10/09/23 22:00 Hgb 14.7 g/dl (14.0-18.0) 10/09/23 22:00 Hct 44.8 % (42.0-52.0) 10/09/23 22:00 MCV 88.2 fL (80.0-100.0) 10/09/23 22:00 MCH 28.9 pg (25.0-34.0) 10/09/23 22:00 MCHC 32.8 g/dL (32.0-36.0) 10/09/23 22:00 RDW Std Deviation 51.8 fL (36.4-46.3) H 10/09/23 22:00 RDW Coeff of Robert 15.9 % (11.5-14.5) H 10/09/23 22:00 Plt Count 123 K/uL (130-400) L 10/09/23 22:00 MPV 9.3 fL (9.4-12.4) L 10/09/23 22:00 Immature Gran % (Auto) 1.2 % 10/09/23 22:00 Neut % (Auto) 91.2 % 10/09/23 22:00 Lymph % (Auto) 4.4 % 10/09/23 22:00 Beadle % (Auto) 3.1 % 10/09/23 22:00 Eos % (Auto) 0.0 % 10/09/23 22:00 Baso % (Auto) 0.1 % 10/09/23 22:00 Neut # (Auto) 9.13 K/uL (1.40-6.50) H 10/09/23 22:00 Lymph # (Auto) 0.44 K/uL (1.20-3.40) L 10/09/23 22:00 Beadle # (Auto) 0.31 K/uL (0.11-0.59) 10/09/23 22:00 Eos # (Auto) 0.00 K/uL (0.00-0.50) 10/09/23 22:00 Baso # (Auto) 0.01 K/uL (0.00-0.20) 10/09/23 22:00 Immature Gran # (Auto) 0.12 K/uL (0.01-0.20) 10/09/23 22:00 PT 10.9 Seconds (9.0-12.0) 10/09/23 22:00 INR 1.0 (0.9-1.1) 10/09/23 22:00 APTT < 20 Seconds (21-31) L 10/09/23 22:00 PTT Ratio 0.7 10/09/23 22:00 Sodium 136 mmol/L (136-145) 10/09/23 22:00 Potassium 4.0 mmol/L (3.5-5.1) 10/09/23 22:00 Chloride 102 mmol/L (98-107) 10/09/23 22:00 Carbon Dioxide 22 mmol/L (21-32) 10/09/23 22:00 Anion Gap 12 (3-11) H 10/09/23 22:00 BUN 38 mg/dl (6-23) H 10/09/23 22:00 Creatinine 1.29 mg/dl (0.6-1.4) 10/09/23 22:00 Est Cr Clr Drug Dosing Not Reportable 10/09/23 22:00 Est GFR ( Amer) 61.6 ml/min 10/09/23 22:00 Est GFR (Non-Af Amer) 53.1 ml/min 10/09/23 22:00 BUN/Creatinine Ratio 29.5 (10-20) H 10/09/23 22:00 Glucose 167 mg/dl (70-99(Fasting)) H 10/09/23 22:00 Calcium 8.5 mg/dl (8.6-10.3) L 10/09/23 22:00 Magnesium 2.1 mg/dl (1.7-2.4) 10/09/23 22:00 Total Bilirubin 0.7 mg/dl (0.2-1.0) 10/09/23 22:00 AST 14 U/L (13-39) 10/09/23 22:00 ALT 35 U/L (7-52) 10/09/23 22:00 Alkaline Phosphatase 47 U/L (34-104) 10/09/23 22:00 Troponin I High Sens 11.9 pg/ml (0-20) 10/09/23 22:00 B-Natriuretic Peptide 23 pg/ml (0-100) 10/09/23 22:00 Total Protein 5.8 gm/dl (6.0-8.3) L 10/09/23 22:00 Albumin 3.6 gm/dl (3.4-5.0) 10/09/23 22:00 Globulin 2.2 gm/dl (2.5-4.0) L 10/09/23 22:00 Albumin/Globulin Ratio 1.6 (0.9-2) 10/09/23 22:00 Adenovirus (PCR) Not Detected (NotDetected) 10/09/23 22:00 B. pertussis DNA (PCR) Not Detected (NotDetected) 10/09/23 22:00 B.parapertussis DNA PCR Not Detected (NotDetected) 10/09/23 22:00 C. pneumoniae DNA (PCR) Not Detected (NotDetected) 10/09/23 22:00 Coronavirus OC43 (PCR) Not Detected (NotDetected) 10/09/23 22:00 Coronavirus HKU1 (PCR) Not Detected (NotDetected) 10/09/23 22:00 Coronavirus 229E (PCR) Not Detected (NotDetected) 10/09/23 22:00 SARS-CoV-2 (PCR) Not Detected (NotDetected) 10/09/23 22:00 Coronavirus NL63 (PCR) Not Detected (NotDetected) 10/09/23 22:00 Human Metapneumovir PCR Not Detected (NotDetected) 10/09/23 22:00 Influenza Type A (PCR) Not Detected (NotDetected) 10/09/23 22:00 Influenza Type B (PCR) Not Detected (NotDetected) 10/09/23 22:00 M. pneumoniae (PCR) Not Detected (NotDetected) 10/09/23 22:00 Parainfluenza 1 (PCR) Not Detected (NotDetected) 10/09/23 22:00 Parainfluenza 2 (PCR) Not Detected (NotDetected) 10/09/23 22:00 Parainfluenza 3 (PCR) Not Detected (NotDetected) 10/09/23 22:00 Parainfluenza 4 (PCR) Not Detected (NotDetected) 10/09/23 22:00 RSV (PCR) Not Detected (NotDetected) 10/09/23 22:00 Entero/Rhino (PCR) Not Detected (NotDetected) 10/09/23 22:00 CT chest: 1. The heart is borderline enlarged. There is a trace pericardial effusion. Moderate aortic and coronary calcification is present. 2. Atelectasis and/or scarring in the right lower lobe, increased compared to previous. The lungs are otherwise clear. Diagnostic Findings EKG as per my interpretation :Rate 80, NSR, normal axis, no ischemia
[2023-10-10] MEDS ORDERED: PROMETHAZINE HCL 6.25 MG in SODIUM CHLORIDE 0.9% 50 ML IV PRN (01:03)
[2023-10-10] MEDS: ALBUT/IPRATROP 3MG/0.5MG NEB 3 ML VIAL NEB STA (01:59)
[2023-10-10] MEDS: SODIUM CHLORIDE 0.9% 1,000 ML IV ONE (01:59)
--- NOTE | 2023-10-10 02:48 | CT Scan Report ---
Exam(s): CT CHEST Without Contrast EXAM: CT Chest Without Intravenous Contrast CLINICAL HISTORY: Reason for exam: cough. TECHNIQUE: Axial computed tomography images of the chest without intravenous contrast. CTDI is 20.52 mGy and DLP is 616.25 mGy-cm. Automated exposure control was utilized for the study. A dose lowering technique was utilized adhering to the principles of ALARA. COMPARISON: September 07, 2023 FINDINGS: Lungs: Atelectasis and/or scarring in the right lower lobe, increased compared to previous. The lungs are otherwise clear. There is a small amount of left lung base subsegmental atelectasis as well. No mass. Pleural space: Unremarkable. No pneumothorax. No significant effusion. Heart: The heart is borderline enlarged. There is a trace pericardial effusion. Moderate aortic and coronary calcification is present. Bones/joints: Moderate multilevel osteophytosis throughout the thoracic spine which is partially ankylosed. No fracture or bone lesion is identified. No dislocation. Soft tissues: Unremarkable. Vasculature: See above. Lymph nodes: Unremarkable. No enlarged lymph nodes. IMPRESSION: 1. The heart is borderline enlarged. There is a trace pericardial effusion. Moderate aortic and coronary calcification is present. 2. Atelectasis and/or scarring in the right lower lobe, increased compared to previous. The lungs are otherwise clear. Electronically signed by: Meliton Villanueva MD 10/10/23 02:48 AM
[2023-10-10] MEDS ORDERED: ACETAMINOPHEN 325 MG TAB PO PRN (03:09)
[2023-10-10] MEDS ORDERED: DOCUSATE SODIUM/SENNA 50/8.6MG TAB PO PRN (03:09)
[2023-10-10] MEDS: DOXYCYCLINE HYCLATE 100 MG in DEXTROSE 5% MINI-B 100 ML IV STA (03:55)
[2023-10-10 05:19] LABS: Appearance Urine Clear (Clear); Bacteria Urine Automated Negative (Negative); Bilirubin Urine Negative (Negative); Blood Urine Negative (Negative); Cast Urine Automated 0 /lpf (0-5); Color Urine Yellow; Epithelial Cell Urine Auto 0-5 /lpf (0-5); Glucose Urine UA 2+ (Negative); Ketones Urine Negative (Negative); Leukocyte Esterase Urine 1+ (Negative); Nitrite Urine Negative (Negative); Protein Urine Negative (Negative); RBC Urine Automated 0-4 /hpf (0-4); Specific Gravity Urine 1.018 (1.000-1.030); Urobilinogen Urine Negative (Negative); WBC Urine Automated >30 /hpf (0-5)
[2023-10-10 06:39] LABS: Basophils # (auto) 0.01 K/uL (0.00-0.20); Basophils % (auto) 0.1 %; Eosinophils # (auto) 0.01 K/uL (0.00-0.50); Eosinophils % (auto) 0.1 %; Hematocrit (blood only) 37.7 % (42.0-52.0); Hemoglobin 12.5 g/dl (14.0-18.0); Immature Granulocytes # (auto) 0.04 K/uL (0.01-0.20); Immature Granulocytes % (auto) 0.5 %; Lymphocytes # (auto) 0.81 K/uL (1.20-3.40); Lymphocytes % (auto) 10.9 %; Mean Corpuscular Hemoglobin 29.1 pg (25.0-34.0); Mean Corpuscular Hgb Conc 33.2 g/dL (32.0-36.0); Mean Corpuscular Volume 87.7 fL (80.0-100.0); Mean Platelet Volume 9.2 fL (9.4-12.4); Monocytes # (auto) 0.29 K/uL (0.11-0.59); Monocytes % (auto) 3.9 %; Neutrophils # (auto) 6.27 K/uL (1.40-6.50); Neutrophils % (auto) 84.5 %; Platelet Count 111 K/uL (130-400); RDW Standard Deviation 51.4 fL (36.4-46.3); White Blood Count 7.43 K/ul (4.8-10.8)
[2023-10-10 06:54] LABS: BUN Creatinine Ratio 31.2 (10-20); Calcium 7.9 mg/dl (8.6-10.3); Creatinine Clr Calc Pharmacy 67.8 ml/min; Est GFR (African American) 75.5 ml/min; Est GFR (Non-African American) 65.1 ml/min; Potassium 3.4 mmol/L (3.5-5.1)
[2023-10-10 06:58] LABS: Troponin I High Sensitivity 17.9 pg/ml (0-20)
[2023-10-10] MEDS: ALBUT/IPRATROP 3MG/0.5MG NEB 3 ML VIAL NEB SCH (07:00)
[2023-10-10 07:31] LABS: Estimated Average Glucose 114 mg/dl; Hemoglobin A1C 5.6 % (4.5-5.6)
--- NOTE | 2023-10-10 08:03 | XRay Report ---
XR chest 1V portable HISTORY: Dyspnea COMPARISON: Chest 09/10/2023. FINDINGS: There are low lung volumes. No pneumothorax. No pleural effusions. Mild elevation the right hemidiaphragm with bibasilar linear densities. This favors subsegmental atelectasis. This is similar to the prior study. No new focal lung consolidations to suggest a pneumonia. No evidence for pulmona ry edema. The heart remains borderline enlarged. No acute fractures. IMPRESSION: No significant change compared to the prior study. No acute process. ACT 112: Negative or not required by law. Electronically signed by: Des Harrison M.D. 10/10/2023 8:01 AM
[2023-10-10] MEDS ORDERED: ENOXAPARIN INJ 40 MG/0.4 ML SYR SQ SCH (09:00)
[2023-10-10] MEDS: POTASSIUM CHLORIDE CRTAB 20 MEQ TABCR PO ONE (10:00)
[2023-10-10] MEDS: MONTELUKAST SODIUM 10 MG TABLET PO SCH (10:03)
[2023-10-10] MEDS: FERROUS SULFATE 325 MG TAB PO SCH (10:04)
[2023-10-10] MEDS: predniSONE 20 MG TAB PO SCH (10:04)
[2023-10-10] MEDS: PANTOprazole 40 MG TAB PO SCH (10:04)
[2023-10-10] MEDS: DONEPEZIL HCL 10 MG TAB PO SCH (10:04)
[2023-10-10] MEDS: amLODIPine BESYLATE 5 MG TAB PO SCH (10:04)
[2023-10-10] MEDS: CEROVITE ADV FORMULA TAB PO SCH (10:04)
[2023-10-10] MEDS: UMECLIDINIUM/VILANTEROL 62.5/25MCG 7 PUFFS/INHALER INH SCH (10:05)
[2023-10-10] MEDS: FLUTICASONE FUROATE 200MCG 14 PUFFS/INHALER INH SCH (10:05)
[2023-10-10] MEDS: FLUTICASONE PROPIONATE NA SPR 16 GM BTL SCH (10:06)
[2023-10-10] MEDS: MEMANTINE HCL 10 MG TAB PO SCH (10:07)
[2023-10-10] MEDS: cefTRIAXone SODIUM 2,000 MG in DEXTROSE 5 % MINI-B 50 ML IV SCH (10:15)
--- NOTE | 2023-10-10 12:17 | Hospitalist Progress Note ---
Date of Service October 10, 2023 Assessment & Plan (1) SOB (shortness of breath): Plan: Acute bronchitis Immunocompromise state Generalized deconditioned Diarrhea H/O bronchial asthma, COPD, ANDRZEJ--continue home inhalers --CT Chest:Atelectasis and/or scarring in the right lower lobe, increased compared to previous. The lungs are otherwise clear. -- Negative BioFire Check procalcitonin Empirically on Rocephin, doxycycline Also on prednisone for ongoing myocarditis treatment Stool studies pending Continue gentle IV fluids PT OT, fall precautions Hypokalemia Replete electrolytes as needed Abnormal urinalysis Rule out UTI Empirically on Rocephin Hyperglycemia Likely due to steroids HbA1c 5.6 Monitor Myocarditis Secondary to Keytruda Currently on prednisone taper course Needs follow-up with cardiology on discharge H/O DVT/PE S/P IVC filter H/O right lower extremity DVT--chronic Carcinoma of the bladder/Prostate H/O recurrent hematuria in the past Received Keytruda Follows with [facility] oncology Dr. Xavi Gramajo as outpatient Needs follow-up with oncology on discharge Other chronic conditions: H/O Aortic stenosis H/O dementia--no acute issues. Reorient frequently to minimize delirium. Continue Aricept, Namenda Pulmonary hypertension Chronic anemia, thrombocytopenia--continue iron supplement GERD--continue PPI H/O adrenal insufficiency--hydrocortisone on hold while on prednisone taper course. Will need to follow-up with endocrinology after completing taper course Hypertension Continue amlodipine Monitor ANDRZEJ Currently not using CPAP Needs follow-up with sleep medicine as outpatient DVT Px: SCDs Re: Thrombocytopenia, H/O recurrent hematuria Code Status Full code Disposition PT OT prior to discharge Admission and Anticipated Discharge Date Admission Date: October 10, 2023 Subjective Patient is seen and examined at bedside Less cough, dyspnea today Reports having generalized weakness Also reports dizziness with ambulation No other complaints Denies any chest pain, nausea, vomiting, abdominal pain Review of Systems Review of Systems: All systems reviewed & are unremarkable except as noted in Subjective Physical Exam Physical Exam: Physical Exam: Vitals signs as noted above General Appearance:Moderately built and nourished, no apparent distress Head: normocephalic, Atraumatic Eyes: normal inspection, EOMI Neck: supple, Trachea midline Respiratory/Chest: Normal breath sounds, CTA, No accessory muscle use Cardiovascular: S1, S2, + murmur Abdomen/GI:Soft, Non tender, Bowel sounds present Extremities/Musculoskeletal:normal inspection, RLE edema with venous stasis, LLE trace edema Neurologic/Psych:AAOx2, grossly no focal neurological deficits Skin: normal color, warm Results & Data Results & Data Vital Signs (Past 12 Hours) Vital Signs Temp Pulse Pulse Resp BP BP Pulse Ox 10/10/23 11:14 36.9 C 77 18 127/77 98 10/10/23 11:12 71 14 99 10/10/23 07:35 36.5 C 80 18 127/74 95 10/10/23 07:02 88 14 98 10/10/23 05:26 10/10/23 05:10 92 H 10/10/23 03:28 36.4 C L 85 18 137/70 99 10/10/23 02:00 82 20 158/93 H 98 10/10/23 01:30 66 23 164/87 H 98 10/10/23 01:00 73 24 158/64 H 97 10/10/23 00:30 71 18 149/84 H 98 O2 Del Method FiO2 10/10/23 11:14 Room Air 10/10/23 11:12 Room Air 21 10/10/23 07:35 Room Air 10/10/23 07:02 Room Air 21 10/10/23 05:26 Room Air 10/10/23 05:10 10/10/23 03:28 Room Air 10/10/23 02:00 Room Air 10/10/23 01:30 Room Air 10/10/23 01:00 Room Air 10/10/23 00:30 Room Air Laboratory Results Short CBC 10/09/23 10/10/23 Range/Units 22:00 05:59 WBC 10.01 7.43 (4.8-10.8) K/ul Hgb 14.7 12.5 L (14.0-18.0) g/dl Hct 44.8 37.7 L (42.0-52.0) % Plt Count 123 L 111 L (130-400) K/uL BMP 10/09/23 10/10/23 22:00 05:59 Sodium 136 138 Potassium 4.0 3.4 L Chloride 102 106 Carbon Dioxide 22 24 BUN 38 H 34 H Creatinine 1.29 1.09 Glucose 167 H 197 H Calcium 8.5 L 7.9 L Liver Function 10/09/23 Range/Units 22:00 Total Bilirubin 0.7 (0.2-1.0) mg/dl AST 14 (13-39) U/L ALT 35 (7-52) U/L Alkaline Phosphatase 47 (34-104) U/L Albumin 3.6 (3.4-5.0) gm/dl Urine 10/10/23 Range/Units Unknown Urine Color Yellow Urine Appearance Clear (Clear) Urine pH 6.0 (4.5-7.5) Ur Specific [place] 1.018 (1.000-1.030) Urine Protein Negative (Negative) Urine Glucose (UA) 2+ H (Negative)
--- NOTE | 2023-10-10 13:40 | Electrocardiogram Report ---
Test Reason : Blood Pressure : / mmHG Vent. Rate : 082 BPM Atrial Rate : 082 BPM P-R Int : 174 ms QRS Dur : 090 ms QT Int : 360 ms P-R-T Axes : 045 026 056 degrees QTc Int : 420 ms Normal sinus rhythm Nonspecific ST abnormality Abnormal ECG When compared with ECG of 06-SEP-2023 08:22, No significant change was found Confirmed by Duke Wolf ([id number]) on 10/10/2023 1:40:12 PM Referred By: REFERRED SELF Confirmed By:Duke Wolf
[2023-10-10] MEDS: DOXYCYCLINE HYCLATE 100 MG CAP PO SCH (20:07)
[2023-10-10] MEDS ORDERED: NON-FORMULARY MEDICATION (Fluticasone-Umeclidin-Vilanter [Trelegy Ellipta] 200-62.5-25 mcg INH SCH (21:00)
[2023-10-11 06:40] LABS: BUN Creatinine Ratio 22.2 (10-20); Calcium 8.4 mg/dl (8.6-10.3); Creatinine Clr Calc Pharmacy 68.5 ml/min; Est GFR (African American) 76.3 ml/min; Est GFR (Non-African American) 65.9 ml/min; Hematocrit (blood only) 41.1 % (42.0-52.0); Hemoglobin 13.6 g/dl (14.0-18.0); Mean Corpuscular Hemoglobin 29.2 pg (25.0-34.0); Mean Corpuscular Hgb Conc 33.1 g/dL (32.0-36.0); Mean Corpuscular Volume 88.2 fL (80.0-100.0); Platelet Count 116 K/uL (130-400); Potassium 4.1 mmol/L (3.5-5.1); RDW Coefficient of Variation 16.1 % (11.5-14.5); RDW Standard Deviation 51.8 fL (36.4-46.3); Red Blood Count 4.66 M/uL (4.70-6.10)
[2023-10-11] MEDS: SULFAMETHOXAZOLE/TRIMETHOPRIM DS 800/160MG TAB PO SCH (08:52)
--- NOTE | 2023-10-11 15:12 | Cardiology Consultation ---
Date of Consultation October 11, 2023 Assessment & Plan (1) SOB (shortness of breath): (2) Myocarditis: (3) Weakness: Plan Patient admitted for worsening SOB/weakness. 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 Cardiac MRI end of Aug 2023 with preserved EF, mild myocarditis. On high dose steroid taper, starting at 100 mg daily from Sep 12. On Oct 06, this was reduced to 80 mg daily at oncology visit. In the interim, he was admitted for worsening SOB/weakness at home. Overall has had progressive decline in the last month or 2 per outpatient notes. Chest xray on admission was clear without findings of infectious process or pleural effusions. Chest CT with atelectasis, but no acute process. (no studies with contrast given Dye allergy) HS troponin since admission negative x2 EKG without acute changes. Updated echo ordered and results pending. Continue prednisone 80 mg daily for now. Slow taper recommended over 8-12 weeks. Clinically patient feeling better with treatment for bronchitis with antibiotics and nebulizers. Symptom improved. Recommend PT/OT Case discussed with Dr. Cardoso I spent a total of 60 minutes on the date of service in preparation, delivery, and documentation of the care provided to this patient, excluding any time spent in the performance of separately billed services. Eulalia Wolfe PA-C Department of Cardiology, [facility] This chart was completed in part utilizing Speech Voice Recognition Software. Grammatical errors, random word insertions, pronoun errors, and incomplete sentences are an occasional consequence of this system due to software limitations, ambient noise, and hardware issues. Any formal questions or concerns about the content, text, or information contained within the body of this dictation should be directly addressed to the provider for clarification. Supervising Physician Co-Signing Physician Notes I have reviewed the advance practitioner's documentation, and I agree with, and take responsibility for the plan of care. 78-year-old patient admitted with progressive shortness of breath. Denies orthopnea or PND. Chronic, right lower extremity edema unchanged. Denies chest discomfort or heaviness. Telemetry reveals sinus rhythm. No dysrhythmias. Poor historian. 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 Preserved LV systolic function without decompensated heart failure during recent admission in late August. Currently treated with oral prednisone, 100 mg daily for 4 weeks, recently reduced to 80 mg daily by oncology. PE: VSS. Gen: NAD, AAOx3. Heart: Regular rhythm, normal S1-S2, 2/6 systolic ejection murmur heard best at the right second intercostal space. Lungs: Clear bilateral, no rales, rhonchi, wheeze. Extremities: Mild, right lower extremity ankle and pretibial edema with stasis changes. A/P: 78-year-old patient with Keytruda-induced myocarditis per cardiac MRI. Repeat echocardiogram demonstrating preserved LV systolic function, no pericardial effusion, and stable, moderate aortic valve stenosis. No signs/symptoms of decompensated heart failure. Continue prednisone taper as ordered, managed by oncology. Most recent oncology note recommending slow taper of prednisone over 8-12 weeks. When prednisone discontinued, patient will be restarted on maintenance hydrocortisone prescribed for treatment of chronic adrenal insufficiency. Thank you for allow me to participate in the care of your patient. I spent a total of 30 minutes on the date of service in preparation, delivery, and documentation of the care provided to this patient, excluding any time spent in the performance of separately billed services. History of Present Illness Reason for Consultation: SOB Requesting Physician: Dr. Gongora Attending Physician: Dr. Cardoso History of Present Illness Patient is a 78 year old male who presents to [facility] with complaints of worsening SOB. Recent history significant for acute myocarditis, Diagnosed Aug 2023. At that time, he originally he presented to [facility] with complaints of worsening SOB. He had recently stopped anticoagulation due to worsening hematuria in the setting of bladder CA treatment/radiation. Given history of PE in the remote past, he was transferred to [facility] for V/Q scan to r/o PE. Patient unable to have chest CT with contrast due to dye allergy causing possible cardiac arrest in the past. VQ scan was negative for PE. During admission he was found to have elevated troponin. Echo demonstrated normal LVEF at 65-69% with moderate and mild MR with trivial pericardial effusion. Due to elevated troponin and concerns for myocarditis, patient was then transferred to [facility] for cardiac MRI. Cardiac MRI was completed on 09/13 and consistent with mild myocarditis. Keytruda was discontinued. High dose prednisone 100 mg initiated during admission the end of Aug 2023. At Oncology follow up on 10/06, this was reduced to 80 mg daily. During that visit, progressive decline and weakness was discussed. Further treatments for bladder CA was placed on hold. In the interim, patient was admitted to [facility] with worsening SOB. Chest xray unremarkable. Chest CT (no contrast) with atelectasis but without acute process. HS troponin x2 are undetectable. (improved from [facility]) EKG demonstrating NSR without ischemic changes. He was started on antibiotics and nebulizers for possible bronchitis. Cardiology consulted due to history of myocarditis and for further evaluation of SOB. At time of consult, patient resting in bed comfortably. He reports his symptoms have greatly improved since admission with use of incentive spirometry and nebulizer treatment. Currently he is comfortable at rest. No fever or chills. Dry cough reported. Chronic right LE edema unchanged. Allergies Allergy/AdvReac Type Severity Reaction Status Date / Time Iodinated Contrast Media Allergy Severe LOVERSOL---CARDIAC Verified 10/09/23 22:[address] CONTRAST clindamycin Allergy Intermediate Rash Verified 10/09/23 22:15 chocolate flavor AdvReac Severe DIARRHEA/ Verified 10/09/23 22:15 Cannot take, interacts w/ medications. cranberry AdvReac Severe Cannot Verified 10/09/23 22:15 take, interacts w/ medications. pembrolizumab [From [employer]] AdvReac Intermediate myocarditis Verified 10/10/23 05:08 Home Medications Medication Instructions Recorded Confirmed Type donepezil 10 mg tablet 10 mg PO QAM 04/13/22 10/09/23 History ascorbic acid (vitamin C) 1,000 mg 1,000 mg PO QAM 08/27/22 10/09/23 History tablet (Vitamin C) epinephrine 0.3 mg/0.3 mL 0.3 mg IM DIRECTED PRN 11/30/22 10/09/23 History injection, auto-injector anaphylaxis memantine 10 mg tablet 10 mg PO BID 11/30/22 10/09/23 History montelukast 10 mg tablet 10 mg PO DAILY 11/30/22 10/09/23 History fluticasone fur. 200 mcg-umeclid 1 inh inhalation QPM 12/12/22 10/09/23 History 62.5 mcg-vilant 25 mcg inhalat.powder (Trelegy Ellipta) fluticasone propionate 50 2 spray intranasal DAILY 12/12/22 10/09/23 History mcg/actuation nasal spray,suspension ferrous sulfate 325 mg (65 mg 325 mg PO DAILY 04/07/23 10/09/23 History iron) tablet,delayed release acetaminophen 325 mg tablet 650 mg PO Q4H PRN PAIN/FEVER 10/09/23 10/09/23 History (Tylenol) amlodipine 5 mg tablet (Norvasc) 5 mg PO QAM 10/09/23 10/09/23 History ipratropium 0.5 mg-albuterol 3 mg 3 ml inhalation Q6H PRN Shortness 10/09/23 10/09/23 History (2.5 mg base)/3 mL nebulization Of Breath Or Wheezing soln multivitamin with minerals-folic 1 tab PO DAILY 10/09/23 10/09/23 History acid 200 mcg chewable tablet (Multivitamin Gummies) omeprazole 20 mg capsule,delayed 20 mg PO DAILY 10/09/23 10/09/23 History release prednisone 20 mg tablet 80 mg PO DAILY 10/09/23 10/09/23 History sennosides 8.6 mg-docusate sodium 1 tab-cap PO DAILY PRN Constipation 10/09/23 10/09/23 History 50 mg tablet (Senna Plus) sulfamethoxazole 800 1 tab PO 3XWK 10/09/23 10/09/23 History mg-trimethoprim 160 mg tablet Patient History Medical History History of recent blood transfusion Bladder cancer Weakness Mild cognitive impairment, so stated Anemia (06/25/23)to start receiving iron infusions Radiation cystitis Kidney stones x1 episode. no surgery needed. Hx of prostatic malignancy ~ 2013- s/p Lupron and XRT Bradley's disease follows with Endocrinology [facility] on hydrocortisone Chronic steroid use Sleep apnea Cpap Cardiac arrest hx r/t IV Contrast Dye "many years ago" History of pulmonary embolism hx "many years ago" unknown etiology History of DVT (deep vein thrombosis) hx "many years ago" unknown etiology acute on chronic DVT during 12/2022 [facility] admission- Coumadin d/c'ed due to anemia and hematuria; IVC filter placed 12/28/22 Stage 3 chronic kidney disease Ascending aorta dilation Mild- 4.4cm per 11/2022 ECHO Aortic stenosis Mild per 12/2022 ECHO -follows annually with cardiology Adrenal insufficiency Allergic rhinitis Asthma (10/03/11) well controlled. Benign prostatic hyperplasia Contrast media allergy Venous insufficiency (chronic) (peripheral) Hiatal hernia COPD (chronic obstructive pulmonary disease) well controlled. uses Breo daily with exercise Surgical History S/P IVC filter S/P cataract extraction History of right cataract extraction History of colonoscopy H/O sinus surgery History of appendectomy S/P TURP (status post transurethral resection of prostate) Status post cystoscopy (11/07/13) Family History Father Prostate cancer Brother Prostate cancer Mother Thyroid cancer Cancer Other No family history of adverse response to anesthesia Social History Smoking Status: Never smoker Tobacco Type: Cigarettes Second Hand Exposure: No; Do You Dip or Chew Tobacco: No; Hx Alcohol Use: Yes Alcohol type: beer and wine Alcohol Intake Frequency: Monthly or Less Hx Substance Use: No Preferred Language: Iranian Communication Ability: Effective Visual Impairment: Limited Hearing Ability: Normal Rolling Chair Pusher Required: No Beliefs That Will Affect Care: None marital status: Current Living Situation: Spouse Current Living Situation Comment: at home with current occupational status: retired How many Children do You have: 0 Other Information That Helps Us Care for You: No Feels Safe at Home: Yes Safety Concerns: Feels Safe At This Time Diet: regular during the past year weight has: decreased > 10 lbs Seatbelt Use: always Do you think of yourself as: straight/heterosexual Gender Identity: Male Assistive Devices: Bedside Commode, Hospital Bed and Walker Review of Systems Review of Systems: All systems reviewed & are unremarkable except as noted in HPI & below Physical Exam Constitutional: WD/WN, vitals as above well developed Respiratory: no respiratory distress and no labored breathing Auscultation: + diminished lung sounds; no crackles, no rales and no rhonchi Cardiovascular: Rate/Rhythm: regular rate and regular rhythm Heart Sounds: + murmur (II/ systolic murmur LSB) Vessels: no JVD Extremities: + edema (1+ right LE edema) Gastrointestinal (Abdomen): normal bowel sounds, soft, nontender, no hepatosplenomegaly Neurologic: PERRL, EOMI, accommodation nl, no face palsy, no dysarthria Results & Data Vital Signs (Past 12 Hours) Vital Signs Temp Pulse Pulse Resp BP Pulse Ox O2 Del Method 10/11/23 11:17 36.7 C 87 16 126/74 96 Room Air 10/11/23 10:43 Room Air 10/11/23 07:41 15 Room Air 10/11/23 07:31 36.4 C L 84 16 152/86 H 99 Room Air 10/11/23 05:59 74 10/11/23 04:23 36.8 C 78 20 165/88 H 97 Room Air Laboratory Results CBC 10/11/23 Range/Units 05:51 WBC 8.40 (4.8-10.8) K/ul RBC 4.66 L (4.70-6.10) M/uL Hgb 13.6 L (14.0-18.0) g/dl Hct 41.1 L (42.0-52.0) % Plt Count 116 L (130-400) K/uL Comprehensive Metabolic Panel 10/11/23 Range/Units 05:51 Sodium 139 (136-145) mmol/L Potassium 4.1 D (3.5-5.1) mmol/L Chloride 105 (98-107) mmol/L Carbon Dioxide 28 (21-32) mmol/L BUN 24 H (6-23) mg/dl Creatinine 1.08 (0.6-1.4) mg/dl Glucose 83 (70-99(Fasting)) mg/dl Calcium 8.4 L (8.6-10.3) mg/dl Intake and Output 10/11/23 10/11/23 10/11/23 06:59 14:59 22:59 Intake Total 1120 / 1440 290 / 290 Output Total Balance 1120 / 1440 289 / 289 Intake: IV 1000 / 1050 50 / 50 Sodium Chloride 0.9% 1,000 ml @ 1000 / 1000 50 mls/hr IV .Q20H [facility] Rx#: [id number] cefTRIAXone SODIUM 2,000 mg In 50 / 50 Dextrose 5 % Mini-B 50 ml @ 100 mls/hr IV Q24H [facility] Rx#: [id number] Oral 120 / 390 240 / 240 Output: # Bowel Movements Other: # Unmeasured Voids 2 2 Weight 100.7 kg 100.7 kg Weight Measurement Method Built in Bedscale Patient Weight 10/12/23 06:59 Weight 100.7 kg Diagnostic Findings Telemetry reviewed: NSR, occ PVC EKG on arrival 10/09/23: Normal sinus rhythm Nonspecific ST abnormality Abnormal ECG When compared with ECG of 06-SEP-2023 08:22, No significant change was found Chest CT on arrival (non contrast) dated 10/10/23: IMPRESSION: 1. The heart is borderline enlarged. There is a trace pericardial effusion. Moderate aortic and coronary calcification is present. 2. Atelectasis and/or scarring in the right lower lobe, increased compared to previous. The lungs are otherwise clear. Chest xray report reviewed from 10/09/23: IMPRESSION: No significant change compared to the prior study. No acute process. Cardiac MRI report reviewed from Sep 13, 2023: Interpretation Summary 1. Cardiac MRI findings of normal biventricular systolic function. There is mild myocardial edema/inflammation noted in the basal to mid septal segments (T2 times ranging from 49-55). There is minimal atypical intermediate enhancement noted in some of these segments. There is no evidence of myocardial infarction noted. Overall these findings are indicative of mild myocarditis. 2. The left ventricle is of normal size with mild septal thickening. Left ventricle systolic function is normal.The calculated LV ejection fraction is 56%. 3. The right ventricle is of normal size and systolic function. The calculated RV ejection fraction is 56%. 4. There is no myocardial infarction noted on late gadolinium enhanced imaging. 5. A small (<5 mm) circumferential pericardial effusion is noted. 6. The ascending aorta is mildly dilated Echo report reviewed from Aug 2023: Interpretation Summary The qualitative LV ejection fraction is 65-69% (normal). The right ventricular systolic function is qualitatively normal. The right ventricular cavity size is qualitatively normal. Moderate aortic valve stenosis is present. Mild mitral regurgitation is present. A trivial circumferential pericardial effusion is noted. Medications Administered Current Inpatient Medications Acetaminophen (Acetaminophen 325 Mg Tab) 650 mg PO Q4H PRN PRN Reason: Pain or Fever Stop: 11/09/23 03:08 Albuterol (Albut/Ipratrop 3mg/0.5mg Neb 3 Ml Vial) 3 ml NEB QIDR PRN; Protocol PRN Reason: Shortness Of Breath Or Wheezing Stop: 11/09/23 06:59 Amlodipine Besylate (Amlodipine Besylate 5 Mg Tab) 5 mg PO QAM [facility] Stop: 11/09/23 08:59 Last Admin: 10/11/23 08:52 Dose: 5 mg Donepezil HCl (Donepezil Hcl 10 Mg Tab) 10 mg PO QAM [facility] Stop: 11/09/23 08:59 Last Admin: 10/11/23 08:52 Dose: 10 mg Doxycycline Hyclate (Doxycycline Hyclate 100 Mg Cap) 100 mg PO BID [facility] Stop: 10/17/23 20:59 Last Admin: 10/11/23 08:51 Dose: 100 mg Ferrous Sulfate (Ferrous Sulfate 325 Mg Tab) 325 mg PO DAILY [facility] Stop: 11/09/23 08:59 Last Admin: 10/11/23 08:52 Dose: 325 mg Fluticasone Furoate (Fluticasone Furoate 200mcg 14 Puffs/Inhaler) 1 puffs INH DAILY [facility] Stop: 11/09/23 08:59 Last Admin: 10/11/23 08:55 Dose: 1 puffs Fluticasone Propionate (Fluticasone Propionate Na Spr 16 Gm Btl) 2 sprays NA DAILY [facility] Stop: 11/09/23 08:59 Last Admin: 10/11/23 08:54 Dose: 2 sprays Promethazine HCl 6.25 mg/ (Sodium Chloride) 50.25 mls @ 201 mls/hr IV Q6H PRN PRN Reason: Nausea And Vomiting Stop: 11/09/23 01:02 Ceftriaxone Sodium 2,000 mg/ (Dextrose) 50 mls @ 100 mls/hr IV Q24H [facility]; Protocol Stop: 10/15/23 08:44 Last Infusion: 10/11/23 09:34 Dose: Infused Memantine (Memantine Hcl 10 Mg Tab) 10 mg PO BID [facility] Stop: 11/09/23 08:59 Last Admin: 10/11/23 08:51 Dose: 10 mg Montelukast Sodium (Montelukast Sodium 10 Mg Tablet) 10 mg PO DAILY [facility] Stop: 11/09/23 08:59 Last Admin: 10/11/23 08:52 Dose: 10 mg Multivitamins/Minerals (Cerovite Adv Formula Tab) 1 tab PO DAILY [facility] Stop: 11/09/23 08:59 Last Admin: 10/11/23 08:52 Dose: 1 tab Pantoprazole Sodium (Pantoprazole 40 Mg Tab) 40 mg PO DAILY [facility] Stop: 11/09/23 08:59 Last Admin: 10/11/23 08:52 Dose: 40 mg Prednisone (Prednisone 20 Mg Tab) 80 mg PO DAILY [facility] Stop: 11/09/23 08:59 Last Admin: 10/11/23 08:52 Dose: 80 mg Senna/Docusate Sodium (Docusate Sodium/Senna 50/8.6mg Tab) 1 tab PO DAILY PRN PRN Reason: Constipation Stop: 11/09/23 03:08 Trimethoprim/Sulfamethoxazole (Sulfamethoxazole/Trimethoprim Ds 800/160mg Tab) 1 tab PO MoWeFr@0900 [facility] Stop: 11/10/23 08:59 Last Admin: 10/11/23 08:52 Dose: 1 tab Umeclidinium/Vilanterol (Umeclidinium/Vilanterol 62.5/25mcg 7 Puffs/Inhaler) 1 puffs INH DAILY [facility] Stop: 11/09/23 08:59 Last Admin: 10/11/23 08:55 Dose: 1 puffs (2) Myocarditis Myocarditis type: unspecified Chronicity: chronic Qualified Code(s): I51.4 - Myocarditis, unspecified
--- NOTE | 2023-10-11 20:33 | Hospitalist Progress Note ---
Date of Service October 11, 2023 Assessment & Plan (1) SOB (shortness of breath): Plan: Acute bronchitis Immunocompromise state Generalized deconditioned Diarrhea H/O bronchial asthma, COPD, ANDRZEJ--continue home inhalers --CT Chest:Atelectasis and/or scarring in the right lower lobe, increased compared to previous. The lungs are otherwise clear. -- Negative Bio[employer] Procalcitonin normal Continue Rocephin, doxycycline Also on prednisone for ongoing myocarditis treatment Stool studies pending received gentle IV fluids PT OT, fall precautions Respiratory status slightly better today Hypokalemia Replete electrolytes as needed Monitor Dizziness Likely orthostatic hypotension Hold amlodipine Monitor BP Abnormal urinalysis Rule out UTI Empirically on Rocephin Hyperglycemia Likely due to steroids HbA1c 5.6 Monitor Myocarditis Secondary to Keytruda Currently on prednisone taper course Appreciate cardiology input H/O DVT/PE S/P IVC filter H/O right lower extremity DVT--chronic Carcinoma of the bladder/Prostate H/O recurrent hematuria in the past Received Keytruda Follows with [facility] oncology Dr. Xavi Gramajo as outpatient Needs follow-up with oncology on discharge Other chronic conditions: H/O Aortic stenosis H/O dementia--no acute issues. Reorient frequently to minimize delirium. Continue Aricept, Namenda Pulmonary hypertension Chronic anemia, thrombocytopenia--continue iron supplement GERD--continue PPI H/O adrenal insufficiency--hydrocortisone on hold while on prednisone taper course. Will need to follow-up with endocrinology after completing taper course Hypertension Continue amlodipine Monitor ANDRZEJ Currently not using CPAP Needs follow-up with sleep medicine as outpatient DVT Px: SCDs Re: Thrombocytopenia, H/O recurrent hematuria Code Status Full code Disposition SNF Admission and Anticipated Discharge Date Admission Date: October 11, 2023 Subjective Patient is seen and examined at bedside States feeling better today Was hypertensive with PT today Denies any significant cough today Less dyspnea today Still has generalized weakness and dizziness Denies any chest pain, nausea, vomiting, abdominal pain Review of Systems Review of Systems: All systems reviewed & are unremarkable except as noted in Subjective Physical Exam Physical Exam: Physical Exam: Vitals signs as noted above General Appearance:Moderately built and nourished, no apparent distress Head: normocephalic, Atraumatic Eyes: normal inspection, EOMI Neck: supple, Trachea midline Respiratory/Chest: Normal breath sounds, CTA, No accessory muscle use Cardiovascular: S1, S2, + murmur Abdomen/GI:Soft, Non tender, Bowel sounds present Extremities/Musculoskeletal:normal inspection, RLE edema with venous stasis, LLE trace edema Neurologic/Psych:AAOx2, grossly no focal neurological deficits Skin: normal color, warm Results & Data Results & Data Vital Signs (Past 12 Hours) Vital Signs Temp Pulse Pulse Resp BP Pulse Ox O2 Del Method 10/11/23 19:24 36.6 C 91 H 18 134/80 96 Room Air 10/11/23 15:32 36.5 C 92 H 16 110/68 94 Room Air 10/11/23 14:02 86 10/11/23 11:17 36.7 C 87 16 126/74 96 Room Air 10/11/23 10:43 Room Air Laboratory Results Short CBC 10/11/23 Range/Units 05:51 WBC 8.40 (4.8-10.8) K/ul Hgb 13.6 L (14.0-18.0) g/dl Hct 41.1 L (42.0-52.0) % Plt Count 116 L (130-400) K/uL BMP 10/11/23 05:51 Sodium 139 Potassium 4.1 D Chloride 105 Carbon Dioxide 28 BUN 24 H Creatinine 1.08 Glucose 83 Calcium 8.4 L
[2023-10-11] MEDS: ALBUT/IPRATROP 3MG/0.5MG NEB 3 ML VIAL NEB PRN (22:37)
[2023-10-12 06:09] LABS: Hematocrit (blood only) 41.1 % (42.0-52.0); Hemoglobin 13.7 g/dl (14.0-18.0); Mean Corpuscular Hemoglobin 29.3 pg (25.0-34.0); Mean Corpuscular Hgb Conc 33.3 g/dL (32.0-36.0); Mean Platelet Volume 9.2 fL (9.4-12.4); Platelet Count 118 K/uL (130-400); RDW Coefficient of Variation 15.9 % (11.5-14.5); RDW Standard Deviation 51.6 fL (36.4-46.3); Red Blood Count 4.67 M/uL (4.70-6.10); White Blood Count 8.39 K/ul (4.8-10.8)
[2023-10-12 06:22] LABS: BUN Creatinine Ratio 24.1 (10-20); Calcium 8.7 mg/dl (8.6-10.3); Potassium 4.2 mmol/L (3.5-5.1)
--- NOTE | 2023-10-12 16:56 | Hospitalist Progress Note ---
Date of Service October 12, 2023 Assessment & Plan (1) SOB (shortness of breath): Plan: Acute bronchitis Immunocompromise state Generalized deconditioned Diarrhea H/O bronchial asthma, COPD, ANDRZEJ--continue home inhalers --CT Chest:Atelectasis and/or scarring in the right lower lobe, increased compared to previous. The lungs are otherwise clear. -- Negative BioFire Procalcitonin normal Continue Rocephin, doxycycline>> transition to p.o. 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 Xavi Gramajo as outpatient Needs follow-up with oncology on discharge Other chronic conditions: H/O Aortic stenosis H/O dementia--no acute issues. Reorient frequently to minimize delirium. Continue Aricept, Namenda Pulmonary hypertension Chronic anemia, thrombocytopenia--continue iron supplement GERD--continue PPI H/O adrenal insufficiency--hydrocortisone on hold while on prednisone taper course. Will need to follow-up with endocrinology after completing taper course Hypertension Continue amlodipine Monitor ANDRZEJ Currently not using CPAP Needs follow-up with sleep medicine as outpatient DVT Px: SCDs Re: Thrombocytopenia, H/O recurrent hematuria Code Status Full code Disposition SNF Admission and Anticipated Discharge Date Admission Date: October 11, 2023 Subjective Patient is seen and examined at bedside Cough continues to improve No dyspnea today Still has some dizziness Denies any chest pain, nausea, vomiting, abdominal pain Review of Systems Review of Systems: All systems reviewed & are unremarkable except as noted in Subjective Physical Exam Physical Exam: Physical Exam: Vitals signs as noted above General Appearance:Moderately built and nourished, no apparent distress Head: normocephalic, Atraumatic Eyes: normal inspection, EOMI Neck: supple, Trachea midline Respiratory/Chest: Normal breath sounds, CTA, No accessory muscle use Cardiovascular: S1, S2, + murmur Abdomen/GI:Soft, Non tender, Bowel sounds present Extremities/Musculoskeletal:normal inspection, RLE edema with venous stasis, LLE trace edema Neurologic/Psych:AAOx2, grossly no focal neurological deficits Skin: normal color, warm Results & Data Results & Data Vital Signs (Past 12 Hours) Vital Signs Temp Pulse Pulse Resp BP Pulse Ox O2 Del Method 10/12/23 15:55 36.5 C 88 16 127/83 95 Room Air 10/12/23 14:47 82 10/12/23 11:16 36.5 C 76 16 128/70 96 Room Air 10/12/23 07:50 36.5 C 75 16 156/87 H 96 Room Air 10/12/23 06:00 69 Laboratory Results Short CBC 10/12/23 Range/Units 05:27 WBC 8.39 (4.8-10.8) K/ul Hgb 13.7 L (14.0-18.0) g/dl Hct 41.1 L (42.0-52.0) % Plt Count 118 L (130-400) K/uL BMP 10/12/23 05:27 Sodium 137 Potassium 4.2 Chloride 103 Carbon Dioxide 29 BUN 27 H Creatinine 1.12 Glucose 91 Calcium 8.7
[2023-10-12 23:26] LABS: Adenovirus F 40/41 PCR Not Detected (NotDetected); Astrovirus PCR Not Detected (NotDetected); Campylobacter PCR Not Detected (NotDetected); Cryptosporidium PCR Not Detected (NotDetected); Cyclospora cayetanensis PCR Not Detected (NotDetected); Entamoeba histolytica PCR Not Detected (NotDetected); Enteroaggregative E.coli(EAEC) Not Detected (NotDetected); Enteropathogenic E.coli (EPEC) Not Detected (NotDetected); Enterotoxigenic E.coli (ETEC) Not Detected (NotDetected); Giardia lamblia PCR Not Detected (NotDetected); Norovirus GI/GII PCR Not Detected (NotDetected); Plesiomonas shigelloides PCR Not Detected (NotDetected); Rotavirus A PCR Not Detected (NotDetected); Salmonella PCR Not Detected (NotDetected); Sapovirus PCR Not Detected (NotDetected); Shiga-like Toxin E.coli (STEC) Not Detected (NotDetected); Shigella/Enteroinvasive E.coli Not Detected (NotDetected); Vibrio cholerae PCR Not Detected (NotDetected); Vibrio species PCR Not Detected (NotDetected); Yersinia enterocolitica PCR Not Detected (NotDetected)
[2023-10-13 06:09] LABS: Basophils # (auto) 0.02 K/uL (0.00-0.20); Basophils % (auto) 0.2 %; Eosinophils # (auto) 0.01 K/uL (0.00-0.50); Eosinophils % (auto) 0.1 %; Hematocrit (blood only) 42.9 % (42.0-52.0); Hemoglobin 14.2 g/dl (14.0-18.0); Immature Granulocytes # (auto) 0.13 K/uL (0.01-0.20); Immature Granulocytes % (auto) 1.5 %; Lymphocytes # (auto) 1.12 K/uL (1.20-3.40); Lymphocytes % (auto) 12.7 %; Mean Corpuscular Hemoglobin 29.4 pg (25.0-34.0); Mean Corpuscular Hgb Conc 33.1 g/dL (32.0-36.0); Mean Corpuscular Volume 88.8 fL (80.0-100.0); Monocytes # (auto) 0.38 K/uL (0.11-0.59); Monocytes % (auto) 4.3 %; Neutrophils # (auto) 7.15 K/uL (1.40-6.50); Neutrophils % (auto) 81.2 %; Platelet Count 130 K/uL (130-400); RDW Coefficient of Variation 16.1 % (11.5-14.5); RDW Standard Deviation 52.3 fL (36.4-46.3); Red Blood Count 4.83 M/uL (4.70-6.10); White Blood Count 8.81 K/ul (4.8-10.8)
[2023-10-13] MEDS: cefUROXime axetil 250 MG TABLET PO SCH (08:55)
[2023-10-13] MEDS: LOSARTAN POTASSIUM 25 MG TAB PO SCH (11:11)
--- NOTE | 2023-10-13 16:31 | Hospitalist Progress Note ---
Date of Service October 13, 2023 Assessment & Plan (1) SOB (shortness of breath): Plan: Acute bronchitis Immunocompromise state Generalized deconditioned Diarrhea H/O bronchial asthma, COPD, ANDRZEJ--continue home inhalers --CT Chest:Atelectasis and/or scarring in the right lower lobe, increased compared to previous. The lungs are otherwise clear. -- Negative BioFire Procalcitonin normal Continue Rocephin, doxycycline>> transition to p.o. 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 Xavi Gramajo as outpatient Needs follow-up with oncology on discharge Other chronic conditions: H/O Aortic stenosis H/O dementia--no acute issues. Reorient frequently to minimize delirium. Continue Aricept, Namenda Pulmonary hypertension Chronic anemia, thrombocytopenia--continue iron supplement GERD--continue PPI H/O adrenal insufficiency--hydrocortisone on hold while on prednisone taper course. Will need to follow-up with endocrinology after completing taper course Hypertension Discontinue amlodipine Started on losartan 25 mg daily Monitor ANDRZEJ Currently not using CPAP Needs follow-up with sleep medicine as outpatient DVT Px: SCDs Re: Thrombocytopenia, H/O recurrent hematuria Code Status Full code Disposition SNF when accepted Admission and Anticipated Discharge Date Admission Date: October 11, 2023 Subjective Patient is seen and examined at bedside Cough resolved Reports some dyspnea on exertion Dizziness better Blood pressure elevated today Discussed with patient's at bedside Denies any chest pain, nausea, vomiting, abdominal pain Waiting for rehab placement Review of Systems Review of Systems: All systems reviewed & are unremarkable except as noted in Subjective Physical Exam Physical Exam: Physical Exam: Vitals signs as noted above General Appearance:Moderately built and nourished, no apparent distress Head: normocephalic, Atraumatic Eyes: normal inspection, EOMI Neck: supple, Trachea midline Respiratory/Chest: Normal breath sounds, CTA, No accessory muscle use Cardiovascular: S1, S2, + murmur Abdomen/GI:Soft, Non tender, Bowel sounds present Extremities/Musculoskeletal:normal inspection, RLE edema with venous stasis, LLE trace edema Neurologic/Psych:AAOx2, grossly no focal neurological deficits Skin: normal color, warm Results & Data Results & Data Vital Signs (Past 12 Hours) Vital Signs Temp Pulse Pulse Pulse Resp BP BP 10/13/23 15:38 36.3 C L 80 16 112/78 10/13/23 15:31 76 10/13/23 13:58 80 18 10/13/23 11:54 36.7 C 86 20 143/89 H 10/13/23 11:10 151/97 H 10/13/23 10:02 10/13/23 08:01 36.6 C 70 21 164/92 H 10/13/23 07:26 68 Pulse Ox O2 Del Method 10/13/23 15:38 96 Room Air 10/13/23 15:31 10/13/23 13:58 98 Room Air 10/13/23 11:54 98 Room Air 10/13/23 11:10 10/13/23 10:02 Room Air 10/13/23 08:01 98 Room Air 10/13/23 07:26 Laboratory Results Short CBC 10/13/23 Range/Units 05:24 WBC 8.81 (4.8-10.8) K/ul Hgb 14.2 (14.0-18.0) g/dl Hct 42.9 (42.0-52.0) % Plt Count 130 (130-400) K/uL Cardiac Enzymes 10/13/23 Range/Units 05:24 Total Creatine Kinase 20 L (30-223) U/L
[2023-10-14 06:37] LABS: BUN Creatinine Ratio 29.3 (10-20); Calcium 8.6 mg/dl (8.6-10.3); Creatinine Clr Calc Pharmacy 63.7 ml/min; Est GFR (Non-African American) 60.4 ml/min; Potassium 4.1 mmol/L (3.5-5.1)
--- NOTE | 2023-10-14 14:59 | Hospitalist Progress Note ---
Date of Service October 14, 2023 Assessment & Plan (1) SOB (shortness of breath): Plan: Acute bronchitis Immunocompromise state Generalized deconditioned Diarrhea H/O bronchial asthma, COPD, ANDRZEJ--continue home inhalers --CT Chest:Atelectasis and/or scarring in the right lower lobe, increased compared to previous. The lungs are otherwise clear. -- Negative BioFire Procalcitonin normal Stool studies: PCR negative Continue Rocephin, doxycycline>> transition to p.o. 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 Xavi Gramajo as outpatient Needs follow-up with oncology on discharge Other chronic conditions: H/O Aortic stenosis H/O dementia--no acute issues. Reorient frequently to minimize delirium. Continue Aricept, Namenda Pulmonary hypertension Chronic anemia, thrombocytopenia--continue iron supplement GERD--continue PPI H/O adrenal insufficiency--hydrocortisone on hold while on prednisone taper course. Will need to follow-up with endocrinology after completing taper course ANDRZEJ Currently not using CPAP Needs follow-up with sleep medicine as outpatient DVT Px: SCDs Re: Thrombocytopenia, H/O recurrent hematuria Code Status Full code Disposition SNF when accepted Admission and Anticipated Discharge Date Admission Date: October 11, 2023 Subjective Patient is seen and examined at bedside Had PT evaluation earlier today Dizziness much improved No new complaints Cough resolved Denies any chest pain, nausea, vomiting, abdominal pain Waiting for rehab placement Review of Systems Review of Systems: All systems reviewed & are unremarkable except as noted in Subjective Physical Exam Physical Exam: Physical Exam: Vitals signs as noted above General Appearance:Moderately built and nourished, no apparent distress Head: normocephalic, Atraumatic Eyes: normal inspection, EOMI Neck: supple, Trachea midline Respiratory/Chest: Normal breath sounds, CTA, No accessory muscle use Cardiovascular: S1, S2, + murmur Abdomen/GI:Soft, Non tender, Bowel sounds present Extremities/Musculoskeletal:normal inspection, RLE edema with venous stasis, LLE trace edema Neurologic/Psych:AAOx2, grossly no focal neurological deficits Skin: normal color, warm Results & Data Results & Data Vital Signs (Past 12 Hours) Vital Signs Temp Pulse Pulse Resp BP Pulse Ox O2 Del Method 10/14/23 12:26 36.6 C 74 16 123/75 95 Room Air 10/14/23 08:03 36.7 C 75 16 142/81 H 96 Room Air 10/14/23 08:00 Room Air 10/14/23 07:21 68 10/14/23 03:15 15 10/14/23 03:12 68 18 145/77 H 99 CPAP FiO2 10/14/23 12:26 10/14/23 08:03 10/14/23 08:00 10/14/23 07:21 10/14/23 03:15 21 10/14/23 03:12 Laboratory Results [facility] 10/14/23 05:29 Sodium 137 Potassium 4.1 Chloride 103 Carbon Dioxide 27 BUN 34 H Creatinine 1.16 Glucose 95 Calcium 8.6
[2023-10-15 06:28] LABS: Hematocrit (blood only) 42.2 % (42.0-52.0); Hemoglobin 13.9 g/dl (14.0-18.0); Mean Corpuscular Hemoglobin 29.2 pg (25.0-34.0); Mean Corpuscular Hgb Conc 32.9 g/dL (32.0-36.0); Mean Corpuscular Volume 88.7 fL (80.0-100.0); Platelet Count 124 K/uL (130-400); RDW Coefficient of Variation 15.9 % (11.5-14.5); RDW Standard Deviation 51.5 fL (36.4-46.3); Red Blood Count 4.76 M/uL (4.70-6.10); White Blood Count 8.72 K/ul (4.8-10.8)
[2023-10-15 06:43] LABS: BUN Creatinine Ratio 28.6 (10-20); Calcium 8.5 mg/dl (8.6-10.3)
[2023-10-15 07:15] LABS: Potassium 3.9 mmol/L (3.5-5.1)
[2023-10-15] MEDS: LACTATED RINGER'S 1,000 ML IV SCH ×2 (11:26→14:08)
[2023-10-15] MEDS: MIDODRINE HCL 2.5 MG TAB PO SCH (13:26)
--- NOTE | 2023-10-15 15:18 | Hospitalist Progress Note ---
Date of Service October 15, 2023 Assessment & Plan (1) SOB (shortness of breath): Plan: Acute bronchitis Immunocompromise state Generalized d deconditioning Diarrhea H/O bronchial asthma, COPD, ANDRZEJ--continue home inhalers Patient presents with cough, shortness of breath. --CT Chest:Atelectasis and/or scarring in the right lower lobe, increased compared to previous. The lungs are otherwise clear. -- Negative BioFire Procalcitonin normal Stool studies: PCR negative Continue Rocephin, doxycycline>> transition to p.o. 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 As per his oncologist note from October 09; plan to taper down over the course of 8 to 12 weeks. Will taper him down to 70 mg once a day starting tomorrow. 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 Xavi Gramajo as outpatient Needs follow-up with oncology on discharge Other chronic conditions: H/O Aortic stenosis H/O dementia--no acute issues. Reorient frequently to minimize delirium. Continue Aricept, Namenda Pulmonary hypertension Chronic anemia, thrombocytopenia--continue iron supplement GERD--continue PPI H/O adrenal insufficiency--hydrocortisone on hold while on prednisone taper course. Will need to follow-up with endocrinology after completing taper course ANDRZEJ Currently not using CPAP Needs follow-up with sleep medicine as outpatient DVT Px: SCDs Re: Thrombocytopenia, H/O recurrent hematuria Code Status Full code Disposition SNF when accepted Time spent evaluating patient, direct bedside care, chart review, placing orders, interpretation of diagnostic studies, discussion with consultants, patient, and family members, as well as other required patient management activities is 60 minutes Please note the above document was generated using voice recognition software. It may contain grammatical, syntax or spelling errors. Any formal questions or concerns about the content, text or information contained within the body of this dictation should be directly addressed to the provider for clarification Admission and Anticipated Discharge Date Admission Date: October 11, 2023 Subjective Patient seen and examined at bedside. He was found to have orthostatic hypotension. Continues to be weak. No significant events overnight Review of Systems Review of Systems: All systems reviewed & are unremarkable except as noted in Subjective Physical Exam Physical Exam: Physical Exam: Vitals signs as noted above General Appearance:Moderately built and nourished, no apparent distress Respiratory/Chest: Normal breath sounds, CTA, No accessory muscle use Cardiovascular: S1, S2, + murmur Abdomen/GI:Soft, Non tender, Bowel sounds present Extremities/Musculoskeletal:normal inspection, RLE edema with venous stasis, LLE trace edema Neurologic/Psych:AAOx2, grossly no focal neurological deficits Skin: normal color, warm Results & Data Results & Data Vital Signs (Past 12 Hours) Vital Signs Temp Pulse Pulse Pulse Resp BP BP 10/15/23 11:07 92 H 149/82 H 10/15/23 10:25 71 10/15/23 07:27 36.4 C L 73 18 147/90 H 10/15/23 04:10 80 17 10/15/23 03:12 36.5 C 74 18 131/85 Pulse Ox O2 Del Method 10/15/23 11:07 10/15/23 10:25 10/15/23 07:27 99 Room Air 10/15/23 04:10 98 10/15/23 03:12 97 CPAP
[2023-10-16 06:13] LABS: Basophils # (auto) 0.02 K/uL (0.00-0.20); Basophils % (auto) 0.2 %; Eosinophils # (auto) 0.01 K/uL (0.00-0.50); Eosinophils % (auto) 0.1 %; Hematocrit (blood only) 40.7 % (42.0-52.0); Hemoglobin 13.4 g/dl (14.0-18.0); Immature Granulocytes # (auto) 0.16 K/uL (0.01-0.20); Immature Granulocytes % (auto) 1.9 %; Lymphocytes # (auto) 1.55 K/uL (1.20-3.40); Lymphocytes % (auto) 18.1 %; Mean Corpuscular Hemoglobin 29.4 pg (25.0-34.0); Mean Corpuscular Hgb Conc 32.9 g/dL (32.0-36.0); Mean Corpuscular Volume 89.3 fL (80.0-100.0); Mean Platelet Volume 9.2 fL (9.4-12.4); Monocytes # (auto) 0.39 K/uL (0.11-0.59); Monocytes % (auto) 4.6 %; Neutrophils # (auto) 6.44 K/uL (1.40-6.50); Neutrophils % (auto) 75.1 %; Platelet Count 125 K/uL (130-400); RDW Coefficient of Variation 15.9 % (11.5-14.5); RDW Standard Deviation 52.1 fL (36.4-46.3); Red Blood Count 4.56 M/uL (4.70-6.10); White Blood Count 8.57 K/ul (4.8-10.8)
[2023-10-16 06:28] LABS: BUN Creatinine Ratio 28.2 (10-20); Calcium 8.2 mg/dl (8.6-10.3); Creatinine Clr Calc Pharmacy 67.2 ml/min; Est GFR (African American) 74.7 ml/min; Est GFR (Non-African American) 64.4 ml/min; Potassium 4.2 mmol/L (3.5-5.1)
[2023-10-16 06:34] LABS: Troponin I High Sensitivity 14.7 pg/ml (0-20)
[2023-10-16] MEDS: predniSONE 20 MG TAB PO SCH (08:30)
--- NOTE | 2023-10-16 14:31 | Hospitalist Progress Note ---
Date of Service October 16, 2023 Assessment & Plan (1) SOB (shortness of breath): Plan: Acute bronchitis Immunocompromise state Generalized d deconditioning Diarrhea H/O bronchial asthma, COPD, ANDRZEJ--continue home inhalers Patient presents with cough, shortness of breath. --CT Chest:Atelectasis and/or scarring in the right lower lobe, increased compared to previous. The lungs are otherwise clear. -- Negative BioFire Procalcitonin normal Stool studies: PCR negative Continue Rocephin, doxycycline>> transition to p.o. antibiotics to complete the course Also on prednisone for ongoing myocarditis treatment PT OT, fall precautions Dizziness Likely orthostatic hypotension Orthostatics found to be positive Amlodipine discontinued Added teds Started on IV fluids with LR Also started on midodrine Obtain orthostatic vitals every shift; improvement noted on today's orthostatic blood pressure. 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 As per his oncologist note from; plan to taper down over the course of 8 to [address]. [address] Gramajo on October 15, 2023; he recommended to check troponin and decrease his dose to 70 mg once a day High sensitive troponin of 14 Dose of prednisone decreased to 70 mg; plan to decrease by 10 mg every week. 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 Xavi Gramajo as outpatient Needs follow-up with oncology on discharge Other chronic conditions: H/O Aortic stenosis H/O dementia--no acute issues. Reorient frequently to minimize delirium. Continue Aricept, Namenda Pulmonary hypertension Chronic anemia, thrombocytopenia--continue iron supplement GERD--continue PPI H/O adrenal insufficiency--hydrocortisone on hold while on prednisone taper course. Will need to follow-up with endocrinology after completing taper course ANDRZEJ Currently not using CPAP Needs follow-up with sleep medicine as outpatient DVT Px: SCDs Re: Thrombocytopenia, H/O recurrent hematuria Code Status Full code Disposition SNF when accepted I discussed with patient's over the phone. Answer questions/queries. She had initially wanted me to transfer the patient to [place]. I discussed that with the patient. Patient did not want to be transferred as there is no medical reason at the moment. Possible discharge on Wednesday depending on availability of bed in rehab. Time spent evaluating patient, direct bedside care, chart review, placing orders, interpretation of diagnostic studies, discussion with consultants, patient, and family members, as well as other required patient management activities is 60 minutes Please note the above document was generated using voice recognition software. It may contain grammatical, syntax or spelling errors. Any formal questions or concerns about the content, text or information contained within the body of this dictation should be directly addressed to the provider for clarification Admission and Anticipated Discharge Date Admission Date: October 11, 2023 Subjective Patient seen and examined at bedside. He is lying in the bed comfortably; not in any distress. He reports he did not feel as dizzy like previous days while standing up. Orthostatic blood pressure overall improved. Review of Systems Review of Systems: All systems reviewed & are unremarkable except as noted in Subjective Physical Exam Physical Exam: Physical Exam: Vitals signs as noted above General Appearance:Moderately built and nourished, no apparent distress Respiratory/Chest: Normal breath sounds, CTA, No accessory muscle use Cardiovascular: S1, S2, + murmur Abdomen/GI:Soft, Non tender, Bowel sounds present Extremities/Musculoskeletal:normal inspection, RLE edema with venous stasis, LLE trace edema Neurologic/Psych:AAOx2, grossly no focal neurological deficits Skin: normal color, warm Results & Data Results & Data Vital Signs (Past 12 Hours) Vital Signs Temp Pulse Pulse Resp BP Pulse Ox O2 Del Method 10/16/23 11:19 36.6 C 73 20 145/81 H 96 Room Air 10/16/23 08:03 65 10/16/23 08:03 Room Air 10/16/23 07:44 36.7 C 61 18 156/82 H 93 Room Air 10/16/23 03:56 36.6 C 73 18 129/78 95 Room Air 10/16/23 03:46 84 16 99
[2023-10-17 06:08] LABS: Basophils # (auto) 0.02 K/uL (0.00-0.20); Basophils % (auto) 0.2 %; Hematocrit (blood only) 41.1 % (42.0-52.0); Hemoglobin 13.5 g/dl (14.0-18.0); Immature Granulocytes # (auto) 0.19 K/uL (0.01-0.20); Lymphocytes # (auto) 1.56 K/uL (1.20-3.40); Lymphocytes % (auto) 16.3 %; Mean Corpuscular Hemoglobin 29.1 pg (25.0-34.0); Mean Corpuscular Hgb Conc 32.8 g/dL (32.0-36.0); Mean Corpuscular Volume 88.6 fL (80.0-100.0); Mean Platelet Volume 9.4 fL (9.4-12.4); Monocytes # (auto) 0.38 K/uL (0.11-0.59); Neutrophils # (auto) 7.44 K/uL (1.40-6.50); Neutrophils % (auto) 77.5 %; Platelet Count 125 K/uL (130-400); RDW Coefficient of Variation 15.9 % (11.5-14.5); RDW Standard Deviation 51.5 fL (36.4-46.3); Red Blood Count 4.64 M/uL (4.70-6.10); White Blood Count 9.59 K/ul (4.8-10.8)
[2023-10-17 06:19] LABS: BUN Creatinine Ratio 26.9 (10-20); Calcium 8.2 mg/dl (8.6-10.3); Creatinine Clr Calc Pharmacy 71.1 ml/min; Est GFR (African American) 79.9 ml/min; Est GFR (Non-African American) 68.9 ml/min
[2023-10-17] MEDS: MIDODRINE HCL 2.5 MG TAB PO SCH (12:12)
--- NOTE | 2023-10-17 12:18 | Hospitalist Progress Note ---
Date of Service October 17, 2023 Assessment & Plan (1) SOB (shortness of breath): Plan: Acute bronchitis Immunocompromise state Generalized d deconditioning Diarrhea H/O bronchial asthma, COPD, ANDRZEJ--continue home inhalers Patient presents with cough, shortness of breath. --CT Chest:Atelectasis and/or scarring in the right lower lobe, increased compared to previous. The lungs are otherwise clear. -- Negative BioFire Procalcitonin normal Stool studies: PCR negative Continue Rocephin, doxycycline>> transition to p.o. antibiotics to complete the course Also on prednisone for ongoing myocarditis treatment PT OT, fall precautions Dizziness Likely orthostatic hypotension Orthostatics found to be positive Amlodipine discontinued Added teds Given IV fluids Midodrine dose increased to 5 mg 3 times a day. 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 As per his oncologist note from; plan to taper down over the course of 8 to [address]. [address] Gramajo on October 15, 2023; he recommended to check troponin and decrease his dose to 70 mg once a day High sensitive troponin of 14 Dose of prednisone decreased to 70 mg; plan to decrease by 10 mg every week. Patient cannot be completed taper of the steroid due to history of adrenal insufficiency. 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 Xavi Gramajo as outpatient Needs follow-up with oncology on discharge Other chronic conditions: H/O Aortic stenosis H/O dementia--no acute issues. Reorient frequently to minimize delirium. Continue Aricept, Namenda Pulmonary hypertension Chronic anemia, thrombocytopenia--continue iron supplement GERD--continue PPI H/O adrenal insufficiency--hydrocortisone on hold while on prednisone taper course. Will need to follow-up with endocrinology after completing taper course ANDRZEJ Currently not using CPAP Needs follow-up with sleep medicine as outpatient DVT Px: SCDs Re: Thrombocytopenia, H/O recurrent hematuria Code Status Full code Disposition SNF when accepted Time spent evaluating patient, direct bedside care, chart review, placing orders, interpretation of diagnostic studies, discussion with consultants, patient, and family members, as well as other required patient management activities is 50 minutes Please note the above document was generated using voice recognition software. It may contain grammatical, syntax or spelling errors. Any formal questions or concerns about the content, text or information contained within the body of this dictation should be directly addressed to the provider for clarification Admission and Anticipated Discharge Date Admission Date: October 11, 2023 Subjective Patient seen and examined at bedside. Comfortable; not in distress. Denies fever, chills, chest pain, shortness of breath, abdominal pain or urinary symptoms. No significant overnight events Review of Systems Review of Systems: All systems reviewed & are unremarkable except as noted in Subjective Physical Exam Physical Exam: Physical Exam: Vitals signs as noted above General Appearance:Moderately built and nourished, no apparent distress Respiratory/Chest: Normal breath sounds, CTA, No accessory muscle use Cardiovascular: S1, S2, + murmur Abdomen/GI:Soft, Non tender, Bowel sounds present Extremities/Musculoskeletal:normal inspection, RLE edema with venous stasis, LLE trace edema Neurologic/Psych:AAOx2, grossly no focal neurological deficits Skin: normal color, warm Results & Data Results & Data Vital Signs (Past 12 Hours) Vital Signs Temp Pulse Pulse Resp BP Pulse Ox O2 Del Method 10/17/23 11:46 37.2 C 95 H 18 119/92 92 Room Air 10/17/23 09:07 130/78 10/17/23 08:53 37.0 C 75 18 144/101 H 95 Room Air 10/17/23 07:13 73 10/17/23 04:00 36.6 C 74 18 140/86 96 Room Air 10/17/23 03:30 19 FiO2 10/17/23 11:46 10/17/23 09:07 10/17/23 08:53 10/17/23 07:13 10/17/23 04:00 10/17/23 03:30 21
[2023-10-18 06:38] LABS: Basophils # (auto) 0.02 K/uL (0.00-0.20); Basophils % (auto) 0.2 %; Eosinophils # (auto) 0.01 K/uL (0.00-0.50); Eosinophils % (auto) 0.1 %; Hemoglobin 13.5 g/dl (14.0-18.0); Immature Granulocytes # (auto) 0.18 K/uL (0.01-0.20); Immature Granulocytes % (auto) 1.7 %; Lymphocytes # (auto) 1.57 K/uL (1.20-3.40); Lymphocytes % (auto) 14.9 %; Mean Corpuscular Hemoglobin 29.2 pg (25.0-34.0); Mean Corpuscular Hgb Conc 32.9 g/dL (32.0-36.0); Mean Corpuscular Volume 88.7 fL (80.0-100.0); Mean Platelet Volume 9.4 fL (9.4-12.4); Monocytes # (auto) 0.45 K/uL (0.11-0.59); Monocytes % (auto) 4.3 %; Neutrophils # (auto) 8.33 K/uL (1.40-6.50); Neutrophils % (auto) 78.8 %; Platelet Count 121 K/uL (130-400); RDW Coefficient of Variation 15.8 % (11.5-14.5); RDW Standard Deviation 50.8 fL (36.4-46.3); Red Blood Count 4.62 M/uL (4.70-6.10); White Blood Count 10.56 K/ul (4.8-10.8)
[2023-10-18 07:05] LABS: BUN Creatinine Ratio 25.7 (10-20); Calcium 8.3 mg/dl (8.6-10.3); Creatinine Clr Calc Pharmacy 67.8 ml/min; Est GFR (African American) 75.5 ml/min; Est GFR (Non-African American) 65.1 ml/min; Potassium 4.2 mmol/L (3.5-5.1)
--- NOTE | 2023-10-18 12:14 | Hospitalist Progress Note ---
Date of Service October 18, 2023 Assessment & Plan (1) SOB (shortness of breath): Plan: Acute bronchitis Immunocompromise state Generalized d deconditioning Diarrhea H/O bronchial asthma, COPD, ANDRZEJ--continue home inhalers Patient presents with cough, shortness of breath. --CT Chest:Atelectasis and/or scarring in the right lower lobe, increased compared to previous. The lungs are otherwise clear. -- Negative BioFire Procalcitonin normal Stool studies: PCR negative Continue Rocephin, doxycycline>> transition to p.o. antibiotics to complete the course Also on prednisone for ongoing myocarditis treatment PT OT, fall precautions Dizziness Likely orthostatic hypotension Orthostatics found to be positive Amlodipine discontinued Added teds Given IV fluids Midodrine dose increased to 5 mg 3 times a day. 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 As per his oncologist note from; plan to taper down over the course of 8 to [address]. [address] Gramajo on October 15, 2023; he recommended to check troponin and decrease his dose to 70 mg once a day High sensitive troponin of 14 Dose of prednisone decreased to 70 mg; plan to decrease by 10 mg every week. Patient cannot be completed taper of the steroid due to history of adrenal insufficiency. 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 Xavi Gramajo as outpatient Needs follow-up with oncology on discharge Other chronic conditions: H/O Aortic stenosis H/O dementia--no acute issues. Reorient frequently to minimize delirium. Continue Aricept, Namenda Pulmonary hypertension Chronic anemia, thrombocytopenia--continue iron supplement GERD--continue PPI H/O adrenal insufficiency--hydrocortisone on hold while on prednisone taper course. Will need to follow-up with endocrinology after completing taper course ANDRZEJ Currently not using CPAP Needs follow-up with sleep medicine as outpatient DVT Px: SCDs Re: Thrombocytopenia, H/O recurrent hematuria Code Status Full code Disposition SNF when accepted Talked with patient over the phone as per patient's request. Updated and answered questions. Time spent evaluating patient, direct bedside care, chart review, placing orders, interpretation of diagnostic studies, discussion with consultants, patient, and family members, as well as other required patient management activities is 50 minutes Please note the above document was generated using voice recognition software. It may contain grammatical, syntax or spelling errors. Any formal questions or concerns about the content, text or information contained within the body of this dictation should be directly addressed to the provider for clarification Admission and Anticipated Discharge Date Admission Date: October 11, 2023 Subjective Patient seen and examined at bedside. He is sitting up on the chair at the side of the bed. He denies fever, chills, chest pain, shortness of breath or abdominal pain. He denies any dizziness on standing up Review of Systems Review of Systems: All systems reviewed & are unremarkable except as noted in Subjective Physical Exam Physical Exam: Physical Exam: Vitals signs as noted above General Appearance:Moderately built and nourished, no apparent distress Respiratory/Chest: Normal breath sounds, CTA, No accessory muscle use Cardiovascular: S1, S2, + murmur Abdomen/GI:Soft, Non tender, Bowel sounds present Extremities/Musculoskeletal:normal inspection, RLE edema with venous stasis, LLE trace edema Neurologic/Psych:AAOx2, grossly no focal neurological deficits Skin: normal color, warm Results & Data Results & Data Vital Signs (Past 12 Hours) Vital Signs Temp Pulse Pulse Resp BP Pulse Ox O2 Del Method 10/18/23 11:10 36.7 C 82 18 120/81 94 Room Air 10/18/23 08:39 Room Air 10/18/23 07:59 36.5 C 83 17 143/81 H 95 Room Air 10/18/23 07:35 75 10/18/23 04:25 37.0 C 74 20 147/81 H 96 Room Air 10/18/23 03:27 77 17 10/18/23 02:35 Room Air 10/18/23 00:59 76 10/18/23 00:18 36.5 C 84 22 124/73 95 CPAP FiO2 10/18/23 11:10 10/18/23 08:39 10/18/23 07:59 10/18/23 07:35 10/18/23 04:25 10/18/23 03:27 21 10/18/23 02:35 10/18/23 00:59 10/18/23 00:18
[2023-10-19 06:33] LABS: Basophils # (auto) 0.03 K/uL (0.00-0.20); Basophils % (auto) 0.3 %; Hematocrit (blood only) 41.9 % (42.0-52.0); Hemoglobin 13.6 g/dl (14.0-18.0); Immature Granulocytes # (auto) 0.23 K/uL (0.01-0.20); Immature Granulocytes % (auto) 2.5 %; Lymphocytes # (auto) 1.69 K/uL (1.20-3.40); Lymphocytes % (auto) 18.4 %; Mean Corpuscular Hgb Conc 32.5 g/dL (32.0-36.0); Mean Corpuscular Volume 89.3 fL (80.0-100.0); Mean Platelet Volume 9.2 fL (9.4-12.4); Monocytes # (auto) 0.33 K/uL (0.11-0.59); Monocytes % (auto) 3.6 %; Neutrophils # (auto) 6.91 K/uL (1.40-6.50); Neutrophils % (auto) 75.2 %; Platelet Count 126 K/uL (130-400); RDW Coefficient of Variation 15.9 % (11.5-14.5); Red Blood Count 4.69 M/uL (4.70-6.10); White Blood Count 9.19 K/ul (4.8-10.8)
[2023-10-19 06:40] LABS: BUN Creatinine Ratio 26.8 (10-20); Calcium 8.6 mg/dl (8.6-10.3); Creatinine Clr Calc Pharmacy 60.1 ml/min; Est GFR (African American) 65.2 ml/min; Est GFR (Non-African American) 56.3 ml/min; Potassium 4.5 mmol/L (3.5-5.1)
--- NOTE | 2023-10-19 15:18 | Hospitalist Progress Note ---
Date of Service October 19, 2023 Assessment & Plan (1) SOB (shortness of breath): Plan: Acute bronchitis Immunocompromise state Generalized d deconditioning Diarrhea H/O bronchial asthma, COPD, ANDRZEJ--continue home inhalers Patient presents with cough, shortness of breath. --CT Chest:Atelectasis and/or scarring in the right lower lobe, increased compared to previous. The lungs are otherwise clear. -- Negative BioFire Procalcitonin normal Stool studies: PCR negative Completed antibiotic course with Rocephin and doxycycline. Also on prednisone for ongoing myocarditis treatment PT OT, fall precautions Ordered nocturnal pulse oximetry. Patient needs to follow-up to obtain CPAP as outpatient. Dizziness Likely orthostatic hypotension Orthostatics found to be positive Amlodipine discontinued Added teds Given IV fluids Midodrine dose increased to 5 mg 3 times a day. 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 As per his oncologist note from; plan to taper down over the course of 8 to [address]. [address] Gramajo on October 15, 2023; he recommended to check troponin and decrease his dose to 70 mg once a day High sensitive troponin of 14 Dose of prednisone decreased to 70 mg; plan to decrease by 10 mg every week. Patient cannot be completed taper of the steroid due to history of adrenal insufficiency. 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 Xavi Gramajo as outpatient Needs follow-up with oncology on discharge Other chronic conditions: H/O Aortic stenosis H/O dementia--no acute issues. Reorient frequently to minimize delirium. Continue Aricept, Namenda Pulmonary hypertension Chronic anemia, thrombocytopenia--continue iron supplement GERD--continue PPI H/O adrenal insufficiency--hydrocortisone on hold while on prednisone taper course. Will need to follow-up with endocrinology after completing taper course ANDRZEJ Currently not using CPAP Needs follow-up with sleep medicine as outpatient DVT Px: SCDs Re: Thrombocytopenia, H/O recurrent hematuria Code Status Full code Disposition SNF when accepted Talked with patient over the phone as per patient's request. Updated and answered questions. Time spent evaluating patient, direct bedside care, chart review, placing orders, interpretation of diagnostic studies, discussion with consultants, patient, and family members, as well as other required patient management activities is 50 minutes Please note the above document was generated using voice recognition software. It may contain grammatical, syntax or spelling errors. Any formal questions or concerns about the content, text or information contained within the body of this dictation should be directly addressed to the provider for clarification Admission and Anticipated Discharge Date Admission Date: October 11, 2023 Subjective Patient seen and examined at bedside. Comfortable; not in distress. Denies fever, chills, chest pain, shortness of breath, abdominal pain or urinary symptoms. No significant overnight events Review of Systems Review of Systems: All systems reviewed & are unremarkable except as noted in Subjective Physical Exam Physical Exam: Physical Exam: Vitals signs as noted above General Appearance:Moderately built and nourished, no apparent distress Respiratory/Chest: Normal breath sounds, CTA, No accessory muscle use Cardiovascular: S1, S2, + murmur Abdomen/GI:Soft, Non tender, Bowel sounds present Extremities/Musculoskeletal:normal inspection, RLE edema with venous stasis, LLE trace edema Neurologic/Psych:AAOx2, grossly no focal neurological deficits Skin: normal color, warm Results & Data Results & Data Vital Signs (Past 12 Hours) Vital Signs Temp Pulse Pulse Resp BP Pulse Ox O2 Del Method 10/19/23 14:54 88 10/19/23 11:47 36.7 C 88 18 129/77 94 Room Air 10/19/23 08:36 36.6 C 75 18 148/87 H 96 Room Air 10/19/23 07:03 79 10/19/23 04:31 36.4 C L 77 20 144/79 H 95 Room Air 10/19/23 03:24 78 18 97 FiO2 10/19/23 14:54 10/19/23 11:47 10/19/23 08:36 10/19/23 07:03 10/19/23 04:31 10/19/23 03:24 21
[2023-10-19] MEDS: MELATONIN 3 MG TAB PO PRN (23:29)
[2023-10-20] MEDS: MELATONIN 3 MG TAB PO STA (02:51)
[2023-10-20 06:29] LABS: BUN Creatinine Ratio 31.5 (10-20); Calcium 8.3 mg/dl (8.6-10.3); Creatinine Clr Calc Pharmacy 66.6 ml/min; Est GFR (African American) 73.8 ml/min; Est GFR (Non-African American) 63.7 ml/min; Potassium 3.9 mmol/L (3.5-5.1)
[2023-10-20 06:41] LABS: Basophils # (auto) 0.02 K/uL (0.00-0.20); Basophils % (auto) 0.2 %; Hematocrit (blood only) 40.4 % (42.0-52.0); Hemoglobin 13.3 g/dl (14.0-18.0); Immature Granulocytes # (auto) 0.21 K/uL (0.01-0.20); Immature Granulocytes % (auto) 2.6 %; Lymphocytes # (auto) 1.58 K/uL (1.20-3.40); Lymphocytes % (auto) 19.4 %; Mean Corpuscular Hemoglobin 29.4 pg (25.0-34.0); Mean Corpuscular Hgb Conc 32.9 g/dL (32.0-36.0); Mean Corpuscular Volume 89.4 fL (80.0-100.0); Mean Platelet Volume 8.9 fL (9.4-12.4); Monocytes # (auto) 0.35 K/uL (0.11-0.59); Monocytes % (auto) 4.3 %; Neutrophils # (auto) 5.97 K/uL (1.40-6.50); Neutrophils % (auto) 73.5 %; Nucleated RBC # (auto) 0.03 K/uL (0.00-0.12); Nucleated RBC % (auto) 0.4 %; Platelet Count 116 K/uL (130-400); RDW Standard Deviation 52.2 fL (36.4-46.3); Red Blood Count 4.52 M/uL (4.70-6.10); White Blood Count 8.13 K/ul (4.8-10.8)
--- NOTE | 2023-10-20 10:11 | Discharge Summary ---
Date of Service October 20, 2023 Admission HPI Per Admitting Provider History obtained from patient, family, and records. 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 09/06-09/10 [facility] confinement for shortness of breath attributed to suspected PE. Patient transferred to [facility] to facilitate VQ scan due to IV contrast allergy. 09/10-09/11 Low probability pulm embolism on VQ scan. Concern for myocarditis secondary to cardiac toxicity from Keytruda. Patient transferred to [facility] for further evaluation. 09/11-09/14 Myocarditis confirmed on cardiac MRI. TTE 65 to 69%, trivial circumferential pericardial effusion. Patient discharged on high-dose prednisone in place of chronic steroids for patient's adrenal insufficiency indefinitely. Patient to follow-up with local [facility] director of finance. Patient subsequently discharged to [facility] for rehab before returning home last week. Patient and feel he was discharged too early from facility. Prednisone daily dose decreased from 100 mg to 80 mg by [facility] oncologist on outpatient visit 4 days ago. Medications should be tapered over 8 to 12 weeks time as per documentation. Last few days, patient noted cough symptoms productive of junky sputum. Denies aspiration. Worsening shortness of breath. No chest pain. No unusual leg swelling. No fever, no chills. Generalized weakness and lightheadedness. Denies headache symptoms. Denies depression. Chronic diarrhea over the last few weeks. No belly pain. Outpatient stool C. difficile test from 10 days ago negative. Patient brought to ER by for evaluation. Medical History as above Surgical History : Sinus surgery, appendectomy, cataract surgery, TURP, IVC filter placement, TURBT Family History : Thyroid cancer, prostate cancer Personal/Social history : Non-smoker, no EtOH intake, lives with Admission Exam Per Admitting Provider GENERAL: Comfortable, slightly anxious, no respiratory distress SKIN: Pallor, warm HEENT: Pale palpebral conjunctivae, no ptosis, dry buccal mucosa NECK : Supple, no tenderness CHEST : CTA, no tenderness HEART : RRR, systolic murmur ABDOMEN: Some distention, nontender EXTREMITIES : Bilateral LE swelling (right greater than left, chronic as per patient) without tenderness, no other conspicuous deformities noted NEUROLOGIC : Coherent, no facial asymmetry, gait and stance not assessed Principal Diagnosis Acute bronchitis Generalized deconditioning History of bronchial asthma, COPD, ANDRZEJ Orthostatic hypotension Discharge Exam General Appearance:Moderately built and nourished, no apparent distress Respiratory/Chest: Normal breath sounds, CTA, No accessory muscle use Cardiovascular: S1, S2, + murmur Abdomen/GI:Soft, Non tender, Bowel sounds present Extremities/Musculoskeletal:normal inspection, RLE edema with venous stasis, LLE trace edema Neurologic/Psych:AAOx2, grossly no focal neurological deficits Skin: normal color, warm Discharge Data Allergies Allergy/AdvReac Type Severity Reaction Status Date / Time Iodinated Contrast Media Allergy Severe LOVERSOL---CARDIAC Verified 10/09/23 22:[address] CONTRAST clindamycin Allergy Intermediate Rash Verified 10/09/23 22:15 chocolate flavor AdvReac Severe DIARRHEA/ Verified 10/09/23 22:15 Cannot take, interacts w/ medications. cranberry AdvReac Severe Cannot Verified 10/09/23 22:15 take, interacts w/ medications. pembrolizumab [From Keytruda] AdvReac Intermediate myocarditis Verified 10/10/23 05:08 Consultations 10/10/23 00:07 ED Decision to Admit Stat 10/11/23 12:36 Consult Cardiology Routine Ordered Studies 10/10/23 00:56 CT chest diagnostic wo con Stat Hospital Course (1) SOB (shortness of breath): Per prior attending with addendum: Acute bronchitis Immunocompromise state Generalized d deconditioning Diarrhea H/O bronchial asthma, COPD, ANDRZEJ--continue home inhalers Patient presents with cough, shortness of breath. --CT Chest:Atelectasis and/or scarring in the right lower lobe, increased compared to previous. The lungs are otherwise clear. -- Negative BioFire Procalcitonin normal Stool studies: PCR negative Completed antibiotic course with Rocephin and doxycycline. Also on prednisone for ongoing myocarditis treatment PT OT, fall precautions Ordered nocturnal pulse oximetry. Patient needs to follow-up to obtain CPAP as outpatient. Dizziness Likely orthostatic hypotension Orthostatics found to be positive Amlodipine discontinued Added teds Given IV fluids Midodrine dose increased to 5 mg 3 times a day. 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 As per his oncologist note from; plan to taper down over the course of 8 to [address]. [address] Gramajo on October 15, 2023; he recommended to check troponin and decrease his dose to 70 mg once a day High sensitive troponin of 14 Dose of prednisone decreased to 70 mg; plan to decrease by 10 mg every week. Patient cannot be completed taper of the steroid due to history of adrenal insufficiency. 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 Xavi Gramajo as outpatient Needs follow-up with oncology on discharge Other chronic conditions: H/O Aortic stenosis H/O dementia--no acute issues. Reorient frequently to minimize delirium. Continue Aricept, Namenda Pulmonary hypertension Chronic anemia, thrombocytopenia--continue iron supplement GERD--continue PPI H/O adrenal insufficiency--hydrocortisone on hold while on prednisone taper course. Will need to follow-up with endocrinology after completing taper course ANDRZEJ Currently not using CPAP Needs follow-up with sleep medicine as outpatient DVT Px: SCDs Re: Thrombocytopenia, H/O recurrent hematuria Code Status Full code Disposition SNF when accepted Talked with patient over the phone as per patient's request. Updated and answered questions. Addendum 09/21/2023: Patient was seen and examined at bedside as a follow-up of acute bronchitis and generalized deconditioning. Discussed with RN, no new acute event overnight, patient eating okay and moving bowels okay. Patient is hemodynamically stable. Discussed pulse nocturnal oximetry test with the patient, no recommendation for oxygen during sleep at this time. Patient made aware that he will need to coordinate with PCP office to set of his outpatient sleep study. Patient is on tapering dose of steroid, patient to follow-up with oncology office/PCP office for tapering beyond 1 month time of discharge. He will need to follow-up with endocrinology in about 1 and half months for making switch to hydrocortisone due to given his history of adrenal insufficiency. Patient accepts high blood pressure over orthostatic hypotension. Amlodipine has been discontinued, blood pressure has been stable, patient is on midodrine. Patient denies any complaints. He is being discharged to SNF with following instruction at the point of discharge: Follow-up with your primary care physician within a week time and likely you will need labs CBC/CMP/magnesium/phosphorus. You were treated for acute bronchitis, you completed the course of antibiotic with Rocephin and doxycycline. You underwent nocturnal pulse oximetry, which came back negative. You will need sleep study as an outpatient, coordinate with your PCP office to set up the test. For your orthostatic hypotension and as per your discussion with prior attending, your amlodipine has been discontinued and midodrine has been added. Recommend wearing compression stockings through the day. Also recommend maintaining slow transition during changing position from lying to sitting and sitting to standing. Measure blood pressure twice a day, maintain a log to take to your primary care physician for ongoing management of your blood pressure issues. Regarding your steroid for myocarditis likely secondary to your cancer treatment Keytruda, your prednisone dose currently is 70 mg daily, there is a plan to decrease 10 mg every week but you cannot be completely tapered off of your steroid due to history of adrenal insufficiency. You will be discharged with one month worth of tapering dose of steroid, then you will need to coordinate with your PCP office and oncology office for appropriate dosing of your steroid beyond 1 month. Your hydrocortisone is on hold while you are on prednisone taper course. You will need to follow-up with endocrinology before completing taper course for appropriate transition into hydrocortisone. Recommend endocrinology follow up in about 1.5-2 months time. Follow-up with oncology in 2 to 4 weeks time upon discharge. Take your medications as prescribed. Please make sure that you are able to get your medications today by calling your pharmacy before you leave the hospital so that your treatment continuity is not broken. Please note the above document was generated using voice recognition software. It may contain grammatical, syntax or spelling errors. Any formal questions or concerns about the content, text or information contained within the body of this dictation should be directly addressed to the provider for clarification Home Health Attestation I certify that this patient is under my care and that I, or a physicians material assistant working with me, had a face to-face encounter that meets the home health [id number] encounter requirements with this patient. The encounter with the patient was in whole, or in part, for the following medical condition, which is the primary reason for home health care (list medical condition): I certify that, based on my findings, the following services are medically necessary home health services: My clinical findings support the need for the above services because: Further, I certify that my clinical findings support that this patient is homebound (i.e. absences from home require considerable and taxing effort and are for medical reasons or evangelical services or infrequently or of short duration when for other reasons) because: Certification for Home Health Services: Based on the above findings, I certify that this patient is confined to the home and needs intermittent nursing home care, physical therapy and/or speech therapy or continues to need occupational therapy. The patient is under my care, and I have initiated the establishment of the plan of care. This patient will be followed by a physician who will periodically review the plan of care. Total Time Total Time Spent Total Time Spent (In Minutes): 45 Discharge Plan Discharge Items Patient Disposition: Transfer Nursing Home Fac Reason For Visit: SOB Discharge Diagnosis: Acute bronchitis Generalized deconditioning History of bronchial asthma, COPD, ANDRZEJ Orthostatic hypotension Activity: As commented below Activity Comment: Continue with PT/OT. Non-emergency contact: Primary Care Provider Call non-emergency contact if: you have any medication questions, your symptoms worsen and your temperature is above 101.5 Follow-up/Referrals: Deondre Hill MD [Primary Care Provider] - Diet: Heart Healthy Addtl Attending Provider Instructions: Follow-up with your primary care physician within a week time and likely you will need labs CBC/CMP/magnesium/phosphorus. You were treated for acute bronchitis, you completed the course of antibiotic with Rocephin and doxycycline. You underwent nocturnal pulse oximetry, which came back negative. You will need sleep study as an outpatient, coordinate with your PCP office to set up the test. For your orthostatic hypotension and as per your discussion with prior attending, your amlodipine has been discontinued and midodrine has been added. Recommend wearing compression stockings through the day. Also recommend maintaining slow transition during changing position from lying to sitting and sitting to standing. Measure blood pressure twice a day, maintain a log to take to your primary care physician for ongoing management of your blood pressure issues. Regarding your steroid for myocarditis likely secondary to your cancer treatment Peter, your prednisone dose currently is 70 mg daily, there is a plan to decrease 10 mg every week but you cannot be completely tapered off of your steroid due to history of adrenal insufficiency. You will be discharged with one month worth of tapering dose of steroid, then you will need to coordinate with your PCP office and oncology office for appropriate dosing of your steroid beyond 1 month. Your hydrocortisone is on hold while you are on prednisone taper course. You will need to follow-up with endocrinology before completing taper course for appropriate transition into hydrocortisone. Recommend endocrino logy follow up in about 1.5-2 months time. Follow-up with oncology in 2 to 4 weeks time upon discharge. Take your medications as prescribed. Please make sure that you are able to get your medications today by calling your pharmacy before you leave the hospital so that your treatment continuity is not broken. Pending Studies at Discharge: No Stand-Alone Forms: My [facility] Skilled Items Patient informed of condition?: Yes DNR: No Discharge Level of Care: Skilled Communicable Disease: No Discharge Prognosis: Stable Lines: None Urinary Catheter: No Medications and DC Order Prescriptions: New midodrine 5 mg tablet 5 mg PO TID Qty: 90 0RF Rx Instructions: do not give last dose of day after 6PM or within 4 hrs of bedtime prednisone 20 mg Tablet 20 mg PO .daily ud Qty: 60 0RF Rx Instructions: 3.5 (70 mg) tabs daily x 2 days, then 3 tabs daily x 7 days, then 2.5 tabs daily x 7 days, then 2 tabs daily x 7 days. Continued epinephrine 0.3 mg/0.3 mL auto-injector 0.3 mg IM DIRECTED PRN (Reason: anaphylaxis) memantine 10 mg tablet 10 mg PO BID donepezil 10 mg tablet 10 mg PO QAM montelukast 10 mg tablet 10 mg PO DAILY fluticasone propionate 50 mcg/actuation spray,suspension 2 spray INTRANASAL DAILY Trelegy Ellipta 200-62.5-25 mcg blister with device 1 inh INHALATION QPM ascorbic acid (vitamin C) [Vitamin C] 1,000 mg Tablet 1,000 mg PO QAM ferrous sulfate 325 mg (65 mg iron) tablet,delayed release (DR/EC) 325 mg PO DAILY acetaminophen [Tylenol] 325 mg Tablet 650 mg PO Q4H PRN (Reason: PAIN/FEVER) ipratropium-albuterol 0.5 mg-3 mg(2.5 mg base)/3 mL Solution For Nebulization 3 ml INHALATION Q6H PRN (Reason: Shortness Of Breath Or Wheezing) sennosides-docusate sodium [Senna Plus] 8.6-50 mg Tablet 1 tab-cap PO DAILY PRN (Reason: Constipation) sulfamethoxazole-trimethoprim 800-160 mg tablet 1 tab PO 3XWK Rx Instructions: MON, WED, & FRI. omeprazole 20 mg capsule,delayed release(DR/EC) 20 mg PO DAILY multivit with min-folic acid [Multivitamin Gummies] 200 mcg Tablet,Chewable 1 tab PO DAILY Discontinued prednisone 20 mg tablet 80 mg PO DAILY amlodipine [Norvasc] 5 mg tablet 5 mg PO QAM Discharge Orders: Discharge Order (Routine); Ordered 10/20/23 Ordered By: Issa Dickerson Admission Data Admit Date/Time: 10/11/23 09:41 Attending Provider: Issa Dickerson Admit Provider: Branden Chung Primary Care Provider: Deondre Hill Other Providers: Branden Chung; [facility]; [facility]; [facility]
== END 2023-10-20 11:30 | DRG 191 ==
LOC: ED 21:43 → 2N 21:43 → SUATTDRO 10-11 09:41

== ENCOUNTER 2023-11-23 16:24 | Inpatient (IN) ==
--- NOTE | 2023-11-23 17:20 | XRay Report ---
XR chest 1V portable CLINICAL HISTORY: weakness TECHNIQUE: Single frontal radiograph of the chest was obtained. Comparison: Comparison is made to chest radiograph 10/09/2023 FINDINGS: No lines and tubes are seen. Calcified aortic knob is seen. The lungs are clear. No evidence of pleur al effusion or pneumothorax. IMPRESSION: No acute chest disease. ACT 112: Negative or not required by law. Electronically signed by: Alonso Fay M.D. 11/23/2023 5:18 PM
[2023-11-23 17:32] LABS: Basophils # (auto) 0.02 K/uL (0.00-0.20); Basophils % (auto) 0.2 %; Hematocrit (blood only) 42.8 % (42.0-52.0); Hemoglobin 13.6 g/dl (14.0-18.0); Immature Granulocytes # (auto) 0.19 K/uL (0.01-0.20); Immature Granulocytes % (auto) 2.2 %; Lymphocytes # (auto) 0.71 K/uL (1.20-3.40); Mean Corpuscular Hgb Conc 31.8 g/dL (32.0-36.0); Mean Corpuscular Volume 94.5 fL (80.0-100.0); Mean Platelet Volume 8.7 fL (9.4-12.4); Monocytes # (auto) 0.16 K/uL (0.11-0.59); Monocytes % (auto) 1.8 %; Neutrophils # (auto) 7.75 K/uL (1.40-6.50); Neutrophils % (auto) 87.8 %; Nucleated RBC # (auto) 0.03 K/uL (0.00-0.12); Nucleated RBC % (auto) 0.3 %; Platelet Count 240 K/uL (130-400); RDW Coefficient of Variation 17.4 % (11.5-14.5); Red Blood Count 4.53 M/uL (4.70-6.10); White Blood Count 8.83 K/ul (4.8-10.8)
--- NOTE | 2023-11-23 17:36 | Emergency Department Note ---
Impression & Plan Generalized weakness, Ambulatory dysfunction, Acute UTI (urinary tract infection), Non-ST elevation VA (NSTEMI), Elevated lactic acid level ED Provider Note HISTORY OF PRESENT ILLNESS: Patient is a 78-year-old male presenting with weakness and recurrent falls. Patient reports for the last 2 weeks since being discharged from [facility] she has been having recurrent falls. Reports that he last fell yesterday morning after he became dizzy as if he was spinning and fell to the ground. Reports he landed on his left hip. Denies striking his head or loss of consciousness. He reports he was assisted up and has been doing okay since. He states that he feels very unsteady on his feet and very shaky while getting around at home. He lives with his . He denies any chest pain or shortness of breath. Denies any recent fevers. He has had a nonproductive cough over the last 3 days. He denies any nausea or vomiting. Denies any recent sick contact exposures. ROS: as above PHYSICAL EXAM: Constitutional: Patient appears in no acute distress. HENT: Head: Normocephalic and atraumatic. Eyes: EOMI, PERRL Mouth/Throat: Mucous membranes moist. Neck: Trachea midline. Neck supple. Cardiovascular: RRR, No murmurs, rubs or gallops. Intact distal pulses. Pulmonary/Chest: No respiratory distress. Breath sounds clear and equal bilaterally. No wheezes or rales Abdominal: Abdomen soft, no tenderness, rebound or guarding. Back: No midline spinal tenderness, no paraspinal tenderness, no CVA tenderness. Patient is able to straight leg raise bilaterally without pain in the hip or back. Musculoskeletal: No edema, tenderness or deformity noted. Skin: Warm and dry. No rash, erythema, pallor or cyanosis Psychiatric: Appropriate mood and affect for situation. Neurological: Alert and keenly responsive. CN II-XII grossly intact, moving all extremities equally and fully. MDM: - Vitals signs showed hypertension - History obtained via patient. History as above. - Chronic conditions affecting care: BPH; CKD; DVT and PE hx; campos's disease; mild cognitive impairment - Differential diagnoses include, but are not limited to: UTI; CVA; intracranial hemorrhage; pneumonia; viral syndrome; electrolyte abnormality; dehydration - Order placed for continuous cardiac monitoring. At this time, monitor showed rate of 64 bpm with normal sinus rhythm, per my interpretation. - External medical records reviewed. Discharge summary dated 10/20/2023 was reviewed. Patient was admitted at that time for shortness of breath due and found to have acute bronchitis and generalized deconditioning. - EKG interpreted by myself showed normal sinus rhythm. Rate 79 bpm. QT 374. No acute ischemic changes. - Laboratory workup interpreted by myself showed normal WBC; stable electrolytes; CKD; elevated lactate (2.8 --> 1.7); normal CK; elevated troponin (30.8 --> 25.7); normal TSH - CXR negative for pneumonia, per my interpretation - CT head wo contrast negative for acute pathology. - UA obtained via straight cath showed yeast and evidence of UTI. Given 1g IV rocephin - Given 1L NS in ER with improvement in lactate - Discussion was had with case manager specialist about patient's case and need for admission - Hospitalist consulted for admission - [facility] ASSESSMENT AND PLAN: Diagnosis: Ambulatory dysfunction; generalized weakness; UTI; NSTEMI; elevated lactic acid level Plan: Admit Past Med/Surg History Medical History History of recent blood transfusion Bladder cancer Weakness Mild cognitive impairment, so stated Anemia (06/25/23)to start receiving iron infusions Radiation cystitis Kidney stones x1 episode. no surgery needed. Hx of prostatic malignancy ~ 2013- s/p Lupron and XRT Pima's disease follows with Endocrinology [facility] on hydrocortisone Chronic steroid use Sleep apnea Cpap Cardiac arrest hx r/t IV Contrast Dye "many years ago" History of pulmonary embolism hx "many years ago" unknown etiology History of DVT (deep vein thrombosis) hx "many years ago" unknown etiology acute on chronic DVT during 12/2022 [facility] admission- Coumadin d/c'ed due to anemia and hematuria; IVC filter placed 12/28/22 Stage 3 chronic kidney disease Ascending aorta dilation Mild- 4.4cm per 11/2022 ECHO Aortic stenosis Mild per 12/2022 ECHO -follows annually with cardiology Adrenal insufficiency Allergic rhinitis Asthma (10/03/11) well controlled. Benign prostatic hyperplasia Contrast media allergy Venous insufficiency (chronic) (peripheral) Hiatal hernia COPD (chronic obstructive pulmonary disease) well controlled. uses Breo daily with exercise Surgical History S/P IVC filter S/P cataract extraction History of right cataract extraction History of colonoscopy H/O sinus surgery History of appendectomy S/P TURP (status post transurethral resection of prostate) Status post cystoscopy (11/07/13) Family History Father Prostate cancer Brother Prostate cancer Mother Thyroid cancer Cancer Other No family history of adverse response to anesthesia Social History Smoking Status: Never smoker Tobacco Type: Cigarettes Second Hand Exposure: No; Do You Dip or Chew Tobacco: No; Hx Alcohol Use: Yes Alcohol type: beer and wine Alcohol Intake Frequency: Monthly or Less Hx Substance Use: No Preferred Language: Omani Communication Ability: Effective Visual Impairment: Limited Hearing Ability: Normal [place] Inspector Required: No Beliefs That Will Affect Care: None marital status: Current Living Situation: Spouse Current Living Situation Comment: at home with current occupational status: retired How many Children do You have: 0 Feels Safe at Home: Yes Diet: regular during the past year weight has: decreased > 10 lbs Seatbelt Use: always Do you think of yourself as: straight/heterosexual Gender Identity: Male Assistive Devices: Bedside Commode, Hospital Bed and Walker Allergies Allergies Allergy/AdvReac Type Severity Reaction Status Date / Time Iodinated Contrast Media Allergy Severe LOVERSOL---CARDIAC Verified 11/23/23 21:[address] CONTRAST clindamycin Allergy Intermediate Rash Verified 11/23/23 21:07 chocolate flavor AdvReac Severe DIARRHEA/ Verified 11/23/23 21:07 Cannot take, interacts w/ medications. cranberry AdvReac Severe Cannot Verified 11/23/23 21:07 take, interacts w/ medications. pembrolizumab [From [facility]] AdvReac Intermediate myocarditis Verified 11/23/23 21:07 Home Meds Home Medications Medication Instructions Recorded Confirmed donepezil 10 mg tablet 10 mg PO QAM 04/13/22 11/17/23 ascorbic acid (vitamin C) 1,000 mg 1,000 mg PO QAM 08/27/22 11/23/23 tablet (Vitamin C) epinephrine 0.3 mg/0.3 mL 0.3 mg IM DIRECTED PRN 11/30/22 11/23/23 injection, auto-injector anaphylaxis memantine 10 mg tablet 10 mg PO AMPM 11/30/22 11/23/23 montelukast 10 mg tablet 10 mg PO DAILY 11/30/22 11/17/23 fluticasone fur. 200 mcg-umeclid 1 inh inhalation QPM 12/12/22 11/17/23 62.5 mcg-vilant 25 mcg inhalat.powder (Trelegy Ellipta) fluticasone propionate 50 2 spray intranasal DAILY 12/12/22 11/17/23 mcg/actuation nasal spray,suspension ferrous sulfate 325 mg (65 mg 325 mg PO DAILY 04/07/23 11/17/23 iron) tablet,delayed release acetaminophen 325 mg tablet 650 mg PO Q4H PRN PAIN/FEVER 10/09/23 11/23/23 (Tylenol) ipratropium 0.5 mg-albuterol 3 mg 3 ml inhalation Q6H PRN Shortness 10/09/23 11/17/23 (2.5 mg base)/3 mL nebulization Of Breath Or Wheezing soln multivitamin with minerals-folic 1 tab PO DAILY 10/09/23 11/23/23 acid 200 mcg chewable tablet (Multivitamin Gummies) omeprazole 20 mg capsule,delayed 20 mg PO DAILY 10/09/23 11/17/23 release sennosides 8.6 mg-docusate sodium 1 tab-cap PO DAILY PRN Constipation 10/09/23 11/17/23 50 mg tablet (Senna Plus) sulfamethoxazole 800 1 tab PO 3XWK 10/09/23 11/17/23 mg-trimethoprim 160 mg tablet buspirone 5 mg tablet 5 mg PO TID 11/17/23 11/17/23 cholecalciferol (vitamin D3) 50 50 mcg PO DAILY 11/17/23 11/17/23 mcg (2,000 unit) capsule midodrine 5 mg tablet 2.5 mg PO TID 11/17/23 prednisone 20 mg tablet 40 mg PO .daily ud 11/17/23 cholecalciferol (vitamin D3) 125 125 mcg PO DAILY 11/23/23 11/23/23 mcg (5,000 unit) tablet vitamin B complex 1 tab PO DAILY 11/23/23 11/23/23 Results & Data (ED) Vital Signs Vital Signs - 24 hr 11/23/23 16:44 11/23/23 16:44 11/23/23 16:50 Pulse Rate 76 80 Pulse Rate [Apical] 76 Respiratory Rate 18 18 Respiratory Depth Normal Normal Blood Pressure 148/88 H Blood Pressure [Right Arm] 148/88 H Blood Pressure Mean 108 Blood Pressure Mean [Right Arm] 108 Pulse Oximetry 97 97 Oxygen Delivery Method Room Air Room Air Sepsis Recent Fever Within 48 Hours No Sepsis New/Unexplained Change in Mental Status No Sepsis Action Taken by Nursing No Action Required 11/23/23 20:31 11/23/23 20:35 11/23/23 20:36 Pulse Rate 64 Pulse Rate [Apical] 63 Respiratory Rate 23 Respiratory Depth Blood Pressure Blood Pressure [Right Arm] 165/91 H Blood Pressure Mean Blood Pressure Mean [Right Arm] 115 Pulse Oximetry 98 98 Oxygen Delivery Method Room Air Room Air Sepsis Recent Fever Within 48 Hours Sepsis New/Unexplained Change in Mental Status Sepsis Action Taken by Nursing Laboratory Data 11/23/23 16:40 11/23/23 16:40 Lab Results 11/23/23 11/23/23 11/23/23 Range/Units 16:40 17:12 18:57 WBC 8.83 (4.8-10.8) K/ul RBC 4.53 L (4.70-6.10) M/uL Hgb 13.6 L (14.0-18.0) g/dl Hct 42.8 (42.0-52.0) % MCV 94.5 (80.0-100.0) fL MCH 30.0 (25.0-34.0) pg MCHC 31.8 L (32.0-36.0) g/dL RDW Std Deviation 60.0 H (36.4-46.3) fL RDW Coeff of Robert 17.4 H (11.5-14.5) % Plt Count 240 (130-400) K/uL MPV 8.7 L (9.4-12.4) fL Immature Gran % (Auto) 2.2 % Neut % (Auto) 87.8 % Lymph % (Auto) 8.0 % Larue % (Auto) 1.8 % Eos % (Auto) 0.0 % Baso % (Auto) 0.2 % Neut # (Auto) 7.75 H (1.40-6.50) K/uL Lymph # (Auto) 0.71 L (1.20-3.40) K/uL Larue # (Auto) 0.16 (0.11-0.59) K/uL Eos # (Auto) 0.00 (0.00-0.50) K/uL Baso # (Auto) 0.02 (0.00-0.20) K/uL Immature Gran # (Auto) 0.19 (0.01-0.20) K/uL Absolute Nucleated RBC 0.03 (0.00-0.12) K/uL Nucleated RBC % (auto) 0.3 % PT 10.5 (9.0-12.0) Seconds INR 1.0 (0.9-1.1) Sodium 144 (136-145) mmol/L Potassium 4.8 (3.5-5.1) mmol/L Chloride 107 (98-107) mmol/L Carbon Dioxide 27 (21-32) mmol/L Anion Gap 10 (3-11) BUN 30 H (6-23) mg/dl Creatinine 1.41 H (0.6-1.4) mg/dl Est Cr Clr Drug Dosing 46.5 ml/min Est GFR ( Amer) 55.3 ml/min Est GFR (Non-Af Amer) 47.7 ml/min BUN/Creatinine Ratio 21.3 H (10-20) Glucose 114 H (70-99(Fasting)) mg/dl Lactate 2.8 H* 1.7 (0.4-2.0) mmol/L Calcium 9.2 (8.6-10.3) mg/dl Magnesium 2.1 (1.7-2.4) mg/dl Total Bilirubin 0.6 (0.2-1.0) mg/dl AST 13 (13-39) U/L ALT 20 (7-52) U/L Alkaline Phosphatase 67 (34-104) U/L Total Creatine Kinase 25 L (30-223) U/L Troponin I High Sens 30.8 H 25.7 H (0-20) pg/ml Total Protein 6.1 (6.0-8.3) gm/dl Albumin 3.7 (3.4-5.0) gm/dl Globulin 2.4 L (2.5-4.0) gm/dl Albumin/Globulin Ratio 1.5 (0.9-2) TSH 1.059 (0.300-4.500) uIu/ml Urine Color Urine Appearance (Clear) Urine pH (4.5-7.5) Ur Specific Sutton (1.000-1.030) Urine Protein (Negative) Urine Glucose (UA) (Negative) Urine Ketones (Negative) Urine Blood (Negative) Urine Nitrite (Negative) Urine Bilirubin (Negative) Urine Urobilinogen (Negative) Ur Leukocyte Esterase (Negative) Urine WBC (Auto) (0-5) /hpf Urine RBC (Auto) (0-2) /hpf U Hyaline Cast (Auto) (0-2) /lpf U Epithel Cells (Auto) (0-2) /hpf Urine Bacteria (Auto) (None Seen) Urine Yeast (None Prsent) SARS-CoV-2 (PCR) (Negative) Influenza Type A (PCR) (Neg) Influenza Type B (PCR) (Neg) RSV (RT-PCR) (Neg) 11/23/23 Range/Units 19:55 WBC (4.8-10.8) K/ul RBC (4.70-6.10) M/uL Hgb (14.0-18.0) g/dl Hct (42.0-52.0) % MCV (80.0-100.0) fL MCH (25.0-34.0) pg MCHC (32.0-36.0) g/dL RDW Std Deviation (36.4-46.3) fL RDW Coeff of Robert (11.5-14.5) % Plt Count (130-400) K/uL MPV (9.4-12.4) fL Immature Gran % (Auto) % Neut % (Auto) % Lymph % (Auto) % Larue % (Auto) % Eos % (Auto) % Baso % (Auto) % Neut # (Auto) (1.40-6.50) K/uL Lymph # (Auto) (1.20-3.40) K/uL Larue # (Auto) (0.11-0.59) K/uL Eos # (Auto) (0.00-0.50) K/uL Baso # (Auto) (0.00-0.20) K/uL Immature Gran # (Auto) (0.01-0.20) K/uL Absolute Nucleated RBC (0.00-0.12) K/uL Nucleated RBC % (auto) % PT (9.0-12.0) Seconds INR (0.9-1.1) Sodium (136-145) mmol/L Potassium (3.5-5.1) mmol/L Chloride (98-107) mmol/L Carbon Dioxide (21-32) mmol/L Anion Gap (3-11) BUN (6-23) mg/dl Creatinine (0.6-1.4) mg/dl Est Cr Clr Drug Dosing ml/min Est GFR ( Amer) ml/min Est GFR (Non-Af Amer) ml/min BUN/Creatinine Ratio (10-20) Glucose (70-99(Fasting)) mg/dl Lactate (0.4-2.0) mmol/L Calcium (8.6-10.3) mg/dl Magnesium (1.7-2.4) mg/dl Total Bilirubin (0.2-1.0) mg/dl AST (13-39) U/L ALT (7-52) U/L Alkaline Phosphatase (34-104) U/L Total Creatine Kinase (30-223) U/L Troponin I High Sens (0-20) pg/ml Total Protein (6.0-8.3) gm/dl Albumin (3.4-5.0) gm/dl Globulin (2.5-4.0) gm/dl Albumin/Globulin Ratio (0.9-2) TSH (0.300-4.500) uIu/ml Urine Color Yellow Urine Appearance Clear (Clear) Urine pH 6.5 (4.5-7.5) Ur Specific Sutton 1.014 (1.000-1.030) Urine Protein Negative (Negative) Urine Glucose (UA) Negative (Negative) Urine Ketones Trace H (Negative) Urine Blood Trace H (Negative) Urine Nitrite Negative (Negative) Urine Bilirubin Negative (Negative) Urine Urobilinogen Negative (Negative) Ur Leukocyte Esterase 3+ H (Negative) Urine WBC (Auto) >50 H (0-5) /hpf Urine RBC (Auto) 0-2 (0-2) /hpf U Hyaline Cast (Auto) 0-2 (0-2) /lpf U Epithel Cells (Auto) 0-2 (0-2) /hpf Urine Bacteria (Auto) 2+ H (None Seen) Urine Yeast Present A (None Prsent) SARS-CoV-2 (PCR) NEGATIVE (Negative) Influenza Type A (PCR) Negative (Neg) Influenza Type B (PCR) Negative (Neg) RSV (RT-PCR) Negative (Neg) Administered Medications Ceftriaxone Sodium (Rocephin) 1,000 mg in 50 mls @ 100 mls/hr IV NOW STA Stop: 11/23/23 20:58 Last Infusion: 11/23/23 21:07 Dose: Infused Documented By: Admin: 11/23/23 20:34 Dose: 100 mls/hr Documented By: NICOL Discontinued Medications Sodium Chloride (Nss) 1,000 mls @ 999 mls/hr IV .Q1H1M ONE Stop: 11/23/23 19:00 Last Infusion: 11/23/23 20:13 Dose: Infused Documented By: Admin: 11/23/23 18:07 Dose: 999 mls/hr Documented By: NICOL Imaging Data Radiologist's Impression: Chest X-Ray 11/23/23 16:58 XR chest 1V portable CLINICAL HISTORY: weakness TECHNIQUE: Single frontal radiograph of the chest was obtained. Comparison: Comparison is made to chest radiograph 10/09/2023 FINDINGS: No lines and tubes are seen. Calcified aortic knob is seen. The lungs are clear. No evidence of pleural effusion or pneumothorax. IMPRESSION: No acute chest disease. ACT 112: Negative or not required by law. Electronically signed by: Alonso Fay M.D. 11/23/2023 5:[address] 11/23/23 17:25 CT head/brain wo con CLINICAL HISTORY: recurrent falls; weakness Technique: Contiguous axial CT images of the head were acquired from the base of the skull to the vertex without intravenous contrast administration. Images were viewed in brain, subdural and bone windows. Automated dose lowering techniques and/or adjustment according to patient size were utilized for this exam. Comparison: Comparison is made to CT head 09/06/2023 Findings: Areas of decreased attenuation are present in the periventricular and subcortical white matter bilaterally consistent with small vessel ischemic disease. Generalized cerebral atrophy with commensurate enlargement of the ventricles, sulci, and cisterns is also present. There is no acute intracranial hemorrhage or evidence of acute territorial infarction. No shift of the midline structures, mass effect, or extra-axial abnormalities are shown. Atherosclerotic calcifications are present in the intracranial segments of the internal carotid arteries. Left maxillary sinus fluid is noted compatible with mild sinus disease. The orbits appear normal. There are no acute fractures of the calvaria or scalp swelling. Impression: No acute intracranial hemorrhage, no evidence of acute territorial infarction or other acute intracranial disease process. ACT 112: Negative or not required by law. Electronically signed by: Alonso Fay M.D. 11/23/2023 6:35 PM Discharge Plan Visit Data Chief Complaint: Fall ED Provider: Chanell Young Discharge Problem: Generalized weakness, Ambulatory dysfunction, Acute UTI (urinary tract infection), Non-ST elevation VA (NSTEMI), Elevated lactic acid level Forms Stand Alone Forms: [facility] Prescriptions Prescriptions: No Action epinephrine 0.3 mg/0.3 mL auto-injector 0.3 mg IM DIRECTED PRN (Reason: anaphylaxis) memantine 10 mg tablet 10 mg PO AMPM Rx Instructions: take with meals donepezil 10 mg tablet 10 mg PO QAM buspirone 5 mg tablet 5 mg PO TID midodrine 5 mg tablet 2.5 mg PO TID Rx Instructions: do not give last dose of day after 6PM or within 4 hrs of bedtime prednisone 20 mg tablet 40 mg PO .daily ud Rx Instructions: 3.5 (70 mg) tabs daily x 2 days, then 3 tabs daily x 7 days, then 2.5 tabs daily x 7 days, then 2 tabs daily x 7 days. cholecalciferol (vitamin D3) 50 mcg (2,000 unit) capsule 50 mcg PO DAILY montelukast 10 mg tablet 10 mg PO DAILY fluticasone propionate 50 mcg/actuation spray,suspension 2 spray INTRANASAL DAILY Trelegy Ellipta 200-62.5-25 mcg blister with device 1 inh INHALATION QPM ascorbic acid (vitamin C) [Vitamin C] 1,000 mg Tablet 1,000 mg PO QAM ferrous sulfate 325 mg (65 mg iron) tablet,delayed release (DR/EC) 325 mg PO DAILY acetaminophen [Tylenol] 325 mg Tablet 650 mg PO Q4H PRN (Reason: PAIN/FEVER) ipratropium-albuterol 0.5 mg-3 mg(2.5 mg base)/3 mL Solution For Nebulization 3 ml INHALATION Q6H PRN (Reason: Shortness Of Breath Or Wheezing) sennosides-docusate sodium [Senna Plus] 8.6-50 mg Tablet 1 tab-cap PO DAILY PRN (Reason: Constipation) sulfamethoxazole-trimethoprim 800-160 mg tablet 1 tab PO 3XWK Rx Instructions: WED, WED, & WED. omeprazole 20 mg capsule,delayed release(DR/EC) 20 mg PO DAILY multivit with min-folic acid [Multivitamin Gummies] 200 mcg Tablet,Chewable 1 tab PO DAILY cholecalciferol (vitamin D3) 125 mcg (5,000 unit) Tablet 125 mcg PO DAILY vitamin B complex Tablet 1 tab PO DAILY sulfamethoxazole-trimethoprim 800-160 mg tablet 1 tab PO 3XWK Rx Instructions: begin 11/12/23 x 84 days, take one tablet every Wednesday, Wednesday, and Wednesday. Referrals Referrals: Deondre Hill MD [Primary Care Provider] -
[2023-11-23 17:56] LABS: Albumin Globulin Ratio 1.5 (0.9-2); Albumin Level 3.7 gm/dl (3.4-5.0); BUN Creatinine Ratio 21.3 (10-20); Bilirubin,Total 0.6 mg/dl (0.2-1.0); Calcium 9.2 mg/dl (8.6-10.3); Creatinine Clr Calc Pharmacy 46.5 ml/min; Est GFR (African American) 55.3 ml/min; Est GFR (Non-African American) 47.7 ml/min; Globulin 2.4 gm/dl (2.5-4.0); Magnesium 2.1 mg/dl (1.7-2.4); Potassium 4.8 mmol/L (3.5-5.1); Total Protein 6.1 gm/dl (6.0-8.3)
[2023-11-23 18:04] LABS: Prothrombin Time 10.5 Seconds (9.0-12.0); Troponin I High Sensitivity 30.8 pg/ml (0-20)
[2023-11-23] MEDS: SODIUM CHLORIDE 0.9% 1,000 ML IV ONE (18:07)
[2023-11-23 18:11] LABS: Thyroid Stimulating Hormone 1.059 uIu/ml (0.300-4.500)
--- NOTE | 2023-11-23 18:36 | CT Scan Report ---
CT head/brain wo con CLINICAL HISTORY: recurrent falls; weakness Technique: Contiguous axial CT images of the head were acquired from the base of the skull to the margot katina without intravenous contrast administration. Images were viewed in brain, subdural and [facility] Automated dose lowering techniques and/or adjustment according to patient size were utilized for this exam. Comparison: Comparison is made to CT head 09/06/2023 Findings: Areas of decreased attenuation are present in the periventricular and subcortical white matter bilate rally consistent with small vessel ischemic disease. Generalized cerebral atrophy with commensurate e nlargement of the ventricles, sulci, and cisterns is also present. There is no acute intracranial hem orrhage or evidence of acute territorial infarction. No shift of the midline structures, mass effect, or extra-axial abnormalities are shown. Atherosclerotic calcifications are present in the intracran ial segments of the internal carotid arteries. Left maxillary sinus fluid is noted compatible with mild sinus disease. The orbits appear normal. The re are no acute fractures of the calvaria or scalp swelling. Impression: No acute intracranial hemorrhage, no evidence of acute territorial infarction or other acute intracra nial disease process. ACT 112: Negative or not required by law. Electronically signed by: Alonso Fay M.D. 11/23/2023 6:35 PM
[2023-11-23 20:19] LABS: Troponin I High Sensitivity 25.7 pg/ml (0-20)
[2023-11-23 20:25] LABS: Appearance Urine Clear (Clear); Bacteria Urine Automated 2+ (None Seen); Bilirubin Urine Negative (Negative); Blood Urine Trace (Negative); Cast Urine Automated 0-2 /lpf (0-2); Color Urine Yellow; Epithelial Cell Urine Auto 0-2 /hpf (0-2); Glucose Urine UA Negative (Negative); Ketones Urine Trace (Negative); Leukocyte Esterase Urine 3+ (Negative); Nitrite Urine Negative (Negative); Protein Urine Negative (Negative); RBC Urine Automated 0-2 /hpf (0-2); Specific Gravity Urine 1.014 (1.000-1.030); Urobilinogen Urine Negative (Negative); WBC Urine Automated >50 /hpf (0-5); pH Urine 6.5 (4.5-7.5)
[2023-11-23] MEDS: cefTRIAXone SODIUM 1,000 MG/50 ML BAG IV STA (20:34)
[2023-11-23 20:48] LABS: Influenza A virus by PCR Negative (Neg); Influenza B virus by PCR Negative (Neg); RSV by PCR Negative (Neg); SARS CoV2 RNA(COVID-19) Ceph NEGATIVE (Negative)
--- NOTE | 2023-11-23 22:02 | History & Physical Report ---
Date of Service November 23, 2023 Assessment & Plan (1) Acute UTI (urinary tract infection): (2) Ambulatory dysfunction: (3) Generalized weakness: (4) Myocarditis: (5) S/P IVC filter: (6) History of DVT (deep vein thrombosis): (7) History of pulmonary embolism: (8) Primary bladder malignant neoplasm: (9) Hx of prostatic malignancy: Plan: Please refer Dr. Chung's addendum for assessment and plan. 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 History obtained from the patient and review of outpatient PCP and oncology records. Patient recently admitted to [facility] 10/10 through 10/19 for bronchitis and generalized deconditioning. Patient discharged to [facility] for rehab. He returned home on 11/03. Patient reports a progressive decline since returning home. He has had 2 falls. Home health has been involved and recently concerned about patient's ability to remain at home. Patient reports feeling generally weak, otherwise offers no other complaints. Denies fevers and chills. No chest pain or shortness of breath. Denies lightheadedness, dizziness, diaphoresis, syncopal events. No urinary symptoms. In the ED, patient is hemodynamically stable. UA suggest possible UTI. Lactic acid 2.8 -> 1.7. Creatinine 1.4. Patient was given IV ceftriaxone and IVF. Allergies Allergy/AdvReac Type Severity Reaction Status Date / Time Iodinated Contrast Media Allergy Severe LOVERSOL---CARDIAC Verified 11/23/23 21:[address] CONTRAST clindamycin Allergy Intermediate Rash Verified 11/23/23 21:07 chocolate flavor AdvReac Severe DIARRHEA/ Verified 11/23/23 21:07 Cannot take, interacts w/ medications. cranberry AdvReac Severe Cannot Verified 11/23/23 21:07 take, interacts w/ medications. pembrolizumab [From Keytruda] AdvReac Intermediate myocarditis Verified 11/23/23 21:07 Home Medications Medication Instructions Recorded Confirmed Type donepezil 10 mg tablet 10 mg PO QAM 04/13/22 11/23/23 History ascorbic acid (vitamin C) 1,000 mg 1,000 mg PO QAM 08/27/22 11/23/23 History tablet (Vitamin C) epinephrine 0.3 mg/0.3 mL 0.3 mg IM DIRECTED PRN 11/30/22 11/23/23 History injection, auto-injector anaphylaxis montelukast 10 mg tablet 10 mg PO DAILY 11/30/22 11/23/23 History fluticasone fur. 200 mcg-umeclid 1 inh inhalation QPM 12/12/22 11/23/23 History 62.5 mcg-vilant 25 mcg inhalat.powder (Trelegy Ellipta) fluticasone propionate 50 2 spray intranasal DAILY 12/12/22 11/23/23 History mcg/actuation nasal spray,suspension ferrous sulfate 325 mg (65 mg 325 mg PO DAILY 04/07/23 11/23/23 History iron) tablet,delayed release acetaminophen 325 mg tablet 650 mg PO Q4H PRN PAIN/FEVER 10/09/23 11/23/23 History (Tylenol) multivitamin with minerals-folic 1 tab PO DAILY 10/09/23 11/23/23 History acid 200 mcg chewable tablet (Multivitamin Gummies) omeprazole 20 mg capsule,delayed 20 mg PO QAM 10/09/23 11/23/23 History release sennosides 8.6 mg-docusate sodium 1 tab-cap PO DAILY PRN Constipation 10/09/23 11/23/23 History 50 mg tablet (Senna Plus) buspirone 5 mg tablet 5 mg PO TID 11/17/23 11/23/23 History midodrine 5 mg tablet 2.5 mg PO TID 11/17/23 11/23/23 History prednisone 20 mg tablet 30 mg PO .daily ud 11/17/23 11/23/23 History albuterol sulfate 90 mcg/actuation 2 puff inhalation Q6 PRN Shortness 11/23/23 11/23/23 History aerosol inhaler Of Breath Or Wheezing cholecalciferol (vitamin D3) 125 125 mcg PO DAILY 11/23/23 11/23/23 History mcg (5,000 unit) tablet memantine 10 mg tablet 10 mg PO BIDM 11/23/23 11/23/23 History sulfamethoxazole 800 1 tab PO 3XWK 11/23/23 11/23/23 History mg-trimethoprim 160 mg tablet vitamin B complex 1 tab PO DAILY 11/23/23 11/23/23 History Past Med/Surg History Medical History (Updated 11/23/23 @ 22:01 by JOSÉ ANTONIO Elam) History of recent blood transfusion Bladder cancer Weakness Mild cognitive impairment, so stated Anemia (06/25/23)to start receiving iron infusions Radiation cystitis Kidney stones x1 episode. no surgery needed. Hx of prostatic malignancy ~ 2013- s/p Lupron and XRT Bradley's disease follows with Endocrinology [facility] on hydrocortisone Chronic steroid use Sleep apnea Cpap Cardiac arrest hx r/t IV Contrast Dye "many years ago" History of pulmonary embolism hx "many years ago" unknown etiology History of DVT (deep vein thrombosis) hx "many years ago" unknown etiology acute on chronic DVT during 12/2022 [facility] admission- Coumadin d/c'ed due to anemia and hematuria; IVC filter placed 12/28/22 Stage 3 chronic kidney disease Ascending aorta dilation Mild- 4.4cm per 11/2022 ECHO Aortic stenosis Mild per 12/2022 ECHO -follows annually with cardiology Adrenal insufficiency Allergic rhinitis Asthma (10/03/11) well controlled. Benign prostatic hyperplasia Contrast media allergy Venous insufficiency (chronic) (peripheral) Hiatal hernia COPD (chronic obstructive pulmonary disease) well controlled. uses Breo daily with exercise Surgical History S/P IVC filter S/P cataract extraction History of right cataract extraction History of colonoscopy H/O sinus surgery History of appendectomy S/P TURP (status post transurethral resection of prostate) Status post cystoscopy (11/07/13) Family History Father Prostate cancer Brother Prostate cancer Mother Thyroid cancer Cancer Other No family history of adverse response to anesthesia Social History Smoking Status: Never smoker Tobacco Type: Cigarettes Second Hand Exposure: No; Do You Dip or Chew Tobacco: No; Hx Alcohol Use: Yes Alcohol type: beer and wine Alcohol Intake Frequency: Monthly or Less Hx Substance Use: No Preferred Language: Uzbek Communication Ability: Effective Visual Impairment: Limited Hearing Ability: Normal Voice Network Engineer Required: No Beliefs That Will Affect Care: None marital status: Current Living Situation: Spouse Current Living Situation Comment: at home with current occupational status: retired How many Children do You have: 0 Other Information That Helps Us Care for You: No Feels Safe at Home: Yes Safety Concerns: Feels Safe At This Time Diet: regular during the past year weight has: decreased > 10 lbs Seatbelt Use: always Do you think of yourself as: straight/heterosexual Gender Identity: Male Assistive Devices: Bedside Commode, Hospital Bed and Walker Physical Exam Constitutional: WD/WN, vitals as above no acute distress Eyes: PERRL, conjunctivae normal, anicteric sclerae ENMT: external ear and nose normal, oropharynx normal Respiratory: normal respiratory effort, lungs clear to auscultation Cardiovascular: Rate/Rhythm: regular rate and regular rhythm Heart Sounds: + murmur (Grade 3/6, systolic) Vessels: normal peripheral pulses Extremities: + edema (+1 edema RLE > LLE ) Gastrointestinal (Abdomen): normal bowel sounds, soft, nontender, no hepatosplenomegaly Musculoskeletal: no cyanosis or clubbing, extremities motor strength 5/5 Skin: no rashes, warm and dry + nail abnormality (Right second toenail mostly avulsed) Chronic venous changes RLE Neurologic: PERRL, EOMI, accommodation nl, no face palsy, no dysarthria Psychiatric: A+Ox3, euthymic affect Results & Data Results & Data Vital Signs (Past 12 Hours) Vital Signs Pulse Pulse Resp BP BP Pulse Ox O2 Del Method 11/23/23 20:36 98 Room Air 11/23/23 20:35 63 23 165/91 H 98 Room Air 11/23/23 20:31 64 11/23/23 16:50 80 11/23/23 16:44 76 18 148/88 H 97 Room Air 11/23/23 16:44 76 18 148/88 H 97 Room Air Laboratory Results Short CBC 11/23/23 Range/Units 16:40 WBC 8.83 (4.8-10.8) K/ul Hgb 13.6 L (14.0-18.0) g/dl Hct 42.8 (42.0-52.0) % Plt Count 240 (130-400) K/uL BMP 11/23/23 16:40 Sodium 144 Potassium 4.8 Chloride 107 Carbon Dioxide 27 BUN 30 H Creatinine 1.41 H Glucose 114 H Calcium 9.2 Cardiac Enzymes 11/23/23 Range/Units 18:57 Total Creatine Kinase 25 L (30-223) U/L Liver Function 11/23/23 Range/Units 16:40 Total Bilirubin 0.6 (0.2-1.0) mg/dl AST 13 (13-39) U/L ALT 20 (7-52) U/L Alkaline Phosphatase 67 (34-104) U/L Albumin 3.7 (3.4-5.0) gm/dl Urine 11/23/23 Range/Units 19:55 Urine Color Yellow Urine Appearance Clear (Clear) Urine pH 6.5 (4.5-7.5) Ur Specific Rodman 1.014 (1.000-1.030) Urine Protein Negative (Negative) Urine Glucose (UA) Negative (Negative) Diagnostic Findings Chest X-Ray 11/23/23 16:58 XR chest 1V portable CLINICAL HISTORY: weakness TECHNIQUE: Single frontal radiograph of the chest was obtained. Comparison: Comparison is made to chest radiograph 10/09/2023 FINDINGS: No lines and tubes are seen. Calcified aortic knob is seen. The lungs are clear. No evidence of pleural effusion or pneumothorax. IMPRESSION: No acute chest disease. ACT 112: Negative or not required by law. Electronically signed by: Alonso Fay M.D. 11/23/2023 5:[address] 11/23/23 17:25 CT head/brain wo con CLINICAL HISTORY: recurrent falls; weakness Technique: Contiguous axial CT images of the head were acquired from the base of the skull to the vertex without intravenous contrast administration. Images were viewed in brain, subdural and bone windows. Automated dose lowering techniques and/or adjustment according to patient size were utilized for this exam. Comparison: Comparison is made to CT head 09/06/2023 Findings: Areas of decreased attenuation are present in the periventricular and subcortical white matter bilaterally consistent with small vessel ischemic disease. Generalized cerebral atrophy with commensurate enlargement of the ventricles, sulci, and cisterns is also present. There is no acute intracranial hemorrhage or evidence of acute territorial infarction. No shift of the midline structures, mass effect, or extra-axial abnormalities are shown. Atherosclerotic calcifications are present in the intracranial segments of the internal carotid arteries. Left maxillary sinus fluid is noted compatible with mild sinus disease. The orbits appear normal. There are no acute fractures of the calvaria or scalp swelling. Impression: No acute intracranial hemorrhage, no evidence of acute territorial infarction or other acute intracranial disease process. ACT 112: Negative or not required by law. Electronically signed by: Alonso Fay M.D. 11/23/2023 6:35 PM Supervising Physician Co-Signing Physician Notes IM ATTENDING : Patient seen and examined. History obtained from patient and records. Concur with salient points upon review of preceding documentation by JOSÉ ANTONIO Giordano. I take responsibility for plan of care below. In addition, patient gives history of near syncope as well as junky cough symptoms. Admits to occasional coughing with meals/water intake. Patient denies UTI symptoms. Patient and feel they left rehab facility to go back home too early FINAL ASSESSMENT AND PLAN as follows : Near syncope History orthostasis on midodrine Aspiration pneumonitis No sepsis for now ARF secondary to illness hx Keytruda myocarditis ongoing steroid taper, history of adrenal insufficiency, Bactrim Rx for PJP prophylaxis while on steroid Rx Underlying pulmonary hypertension, hx bronchial asthma/COPD, ANDRZEJ Valvular heart disease (moderate , mild AR) hypertension, slightly elevated history PE DVT status post IVC filter placement chronic anemia, hemoglobin better than baseline secondary to hemoconcentration Mild cognitive impairment, patient mentating well on regimen hx BPH/prostate cancer status post radiation bladder cancer status post surgery off Keytruda secondary to myocarditis Steroid-induced hyperglycemia likely prediabetes with documented hemoglobin A1c of 5.7 from 2020 Ambulatory dysfunction Thrombocytopenia OBS Medical telemetry Unasyn followed by Augmentin course for possible aspiration pneumonitis [employer] CLAIMS TAKER eval, aspiration precautions Monitor creatinine response to IVF, hold Bactrim until creatinine back to baseline Hold off on antibiotics for now for asymptomatic pyuria PT OT eval, rehab placement DVT prophylaxis. SCDs Re: Thrombocytopenia Full code Patient requesting updates for providers. Ms. Ivet High, contact numbers [phone]. Text document was generated using [employer] voice recognition software. It may contain grammatical or spelling errors. Kindly contact undersigned for clarification of any documentation item in question. (4) Myocarditis Chronicity: chronic Myocarditis type: unspecified Qualified Code(s): I51.4 - Myocarditis, unspecified
[2023-11-23] MEDS ORDERED: PROMETHAZINE HCL 6.25 MG in SODIUM CHLORIDE 0.9% 50 ML IV PRN (23:41)
[2023-11-24] MEDS: AMPICILLIN/SULBACTAM SOD 3,000 MG in SODIUM CHLOR 0.9% MINI-B 100 ML IV STA
[2023-11-24] MEDS ORDERED: ACETAMINOPHEN 325 MG TAB PO PRN (01:21)
[2023-11-24] MEDS: SODIUM CHLORIDE 0.45 % 1,000 ML IV ONE (01:22)
[2023-11-24] MEDS: busPIRone 5 MG TAB PO SCH (02:57)
[2023-11-24 04:35] LABS: Basophils # (auto) 0.01 K/uL (0.00-0.20); Basophils % (auto) 0.1 %; Hematocrit (blood only) 39.9 % (42.0-52.0); Immature Granulocytes # (auto) 0.19 K/uL (0.01-0.20); Immature Granulocytes % (auto) 2.2 %; Lymphocytes # (auto) 1.83 K/uL (1.20-3.40); Lymphocytes % (auto) 21.2 %; Mean Corpuscular Hemoglobin 30.3 pg (25.0-34.0); Mean Corpuscular Hgb Conc 32.6 g/dL (32.0-36.0); Mean Platelet Volume 8.6 fL (9.4-12.4); Monocytes # (auto) 0.44 K/uL (0.11-0.59); Monocytes % (auto) 5.1 %; Neutrophils # (auto) 6.15 K/uL (1.40-6.50); Neutrophils % (auto) 71.4 %; Platelet Count 189 K/uL (130-400); RDW Coefficient of Variation 17.2 % (11.5-14.5); RDW Standard Deviation 57.2 fL (36.4-46.3); Red Blood Count 4.29 M/uL (4.70-6.10); White Blood Count 8.62 K/ul (4.8-10.8)
[2023-11-24 04:46] LABS: Calcium 8.5 mg/dl (8.6-10.3); Creatinine Clr Calc Pharmacy 55.6 ml/min; Est GFR (African American) 68.6 ml/min; Est GFR (Non-African American) 59.2 ml/min; Potassium 4.2 mmol/L (3.5-5.1)
[2023-11-24] MEDS: HEPARIN SOD 5,000 UNIT/0.5 ML VIAL SQ SCH (06:20)
--- OUTSIDE RECORDS SUMMARY | 2023-11-24 08:37 | External Medical Summary | Summary of Care ---
Author Name Unknown Organization [facility] Address [address] [place] [address] Phone [phone] Care Team Providers Care Barrel Maker Name Role Phone Chuy Batista MD Primary Care Provider [phone] Reason for Visit * Reason Onset Date Comments Follow Up 11/22/2023 Encounter Details Date Type Department Care Team (Late st Contact Info) Description 11/22/2023 Telephone Hematology/Oncology [facility] [place] [address] [facility] [place] [address] [facility] [address] [facility] [address] Follow Up Allergies Active Allergy Reactions Criticality Noted Date Comments Chocolate Diarrhea 05/14/2023 Chocolate Flavor High 10/09/2023 Other Reaction(s): DIARRHEA/ Cannot take, interacts w/ medications. Clindamycin Hcl 09/24/2005 rash Cranberry 10/20/2023 Iodinated Contrast Media 10/01/2015 Ioversol Other (Please comment) High 08/10/[address] IV DYE Pembrolizumab High 10/10/2023 Other Reaction(s): myocarditis documented as of this encounter (statuses as of 11/22/2023) Medications Medication Sig Dispensed Refills Start Date [...] 60 Blister Dosing Unit 11 10/26/2022 Active EpiPen 2-Pedro 0.3 MG/0.3ML Injection Solution [...] Oral Capsule Take by mouth. 0 Active Iron 325 (65 Fe) MG Oral Tablet Take by mouth. 0 Active Acetaminophen 325 MG Oral Capsule Take 650 mg by mouth every 4 hours as needed for Pain (fever or pain). 0 Active Ascorbic Acid 500 MG Oral Tablet Take 2 Tablets by mouth every morning. 0 Active Ipratropium-Albut emily 0.5-2.5 (3) MG/3ML Inhalation Solution (Duoneb) Inhale 3 mL by mouth every 6 hours as needed. 0 Active Sulfamethoxazole- Trimethoprim 800-160 MG Oral Tablet (Bactrim DS)Indications:Ur othelial carcinoma of bladder (HCC),Other acute myocarditis 1 tablet 3 days a week ( Wednesday, Wednesday, Wednesday). 36 Tablet 0 10/07/2023 Active predniSONE 20 MG Oral Tablet (Deltasone)Indica tions:Urothelial carcinoma of bladder (HCC),Other acute myocarditis 4 tablets (80 mg ) once a day in the morning with food. 120 Tablet 1 10/07/2023 Active Additional Information Patient taking differently: 10 mg, 4 tablets (80 mg ) once a day in the morning with food., Reported on 10/29/2023 Docusate Sodium 100 MG Oral Capsule (Colace) Take 1 Capsule by mouth in the morning and 1 Capsule before bedtime. 0 Active Bisacodyl 10 MG Rectal Suppository (Dulcolax) Administer 1 Suppository into the rectum in the morning. 0 Active polyethylene glycol 3350 119 gram OR POWD Take 119 g by mouth once. 0 Active busPIRone HCl 5 MG Oral Tablet (Buspar)Indicatio ns:Adjustment disorder with mixed anxiety and depressed mood Take 0.5 Tablets by mouth in the morning and 0.5 Tablets at noon and 0.5 Tablets before bedtime. 45 Tablet 0 11/04/2023 Active Midodrine HCl 2.5 MG Oral Tablet (Proamatine)Indic ations:Orthostati c hypotension Take 1 Tablet by mouth 3 times a day. Take at 8 am, noon, 4 pm 90 Tablet 0 11/04/2023 Active Donepezil HCl 10 MG Oral Tablet (Aricept) TAKE 1 TABLET BY MOUTH EVERY MORNING WITH LARGEST MEAL OF THE DAY. 90 Tablet 1 11/13/2023 Active Memantine HCl 10 MG Oral Tablet (Namenda) TAKE 1 TABLET BY MOUTH TWO TIMES DAILY WITH MORNING AND EVENING MEALS. 180 Tablet 1 11/13/2023 Active Omeprazole 20 MG Oral Capsule Delayed Release (PriLOSEC)Indicat ions:Gastroesopha geal reflux disease, unspecified whether esophagitis present Take 1 Capsule by mouth in the morning. 90 Capsule 1 11/12/2023 Active [facility] Wound/Burn Dressing External GelIndications:Pr essure injury of sacral region, stage 2 (HCC) Apply topically to affected area daily. Apply to pressure ulcer of buttocks. 88 mL 3 11/12/2023 Active documented as of this encounter (statuses as of 11/22/2023) Active Problems Problem Noted Date Diagnosed Date Myocarditis 11/12/2023 Orthostatic hypotension 10/21/2023 S/P IVC filter 10/21/2023 Acute deep vein thrombosis ( DVT) of femoral vein of right lower extremity 10/21/2023 Malnutrition of moderate degree 09/13/2023 Elevated troponin [...] as of this encounter (statuses as of 11/22/2023) Resolved Problems Problem Noted Date Diagnosed Date [...] as of this encounter (statuses as of 11/22/2023) Immunizations Name Administration Dates Next Due COVID-19 mRNA, LNP-s, No Pre serve, 2-Dose Series ([employer]) 05/30/2021,10/29/2020,10/08/2020 COVID-19, LNP-s, No Preserve , Prosper-sucrose, [...] encounter Miscellaneous Notes * Telephone Encounter - Des Mathew RN - 11/22/2023 4:09 PM EDT Pt due for lab work. Called to remind, no answer, left detailed message on machine. documented in this encounter Plan of Treatment Upcoming Encounters Date Type Department Care Team (Late st Contact Info) Description 11/26/2023 2:20 PM EDT Office Visit Neurology [facility] [address] [facility] [place] [address] Ellie Duncan MD [address] [facility] [place] [address] 11/29/2023 1:00 PM EDT Office Visit [facility] [address] [place] [phone] Deondre Hill MD [address] [place] [address] 11/30/2023 1:30 PM EDT Cardiac Studies Cardiac Studies [address] [place] [address] 12/13/2023 11:00 AM EDT Office Visit Hematology/Oncology [facility] [address] [facility] [place] [phone] [facility] [address] [facility] [address] 12/13/2023 11:00 AM EDT Office Visit Cardiology, [facility] [address] [place] [address] Zak Rubio DO [address] [place] [address] 12/15/2023 2:00 PM EDT Office Visit Hematology/Oncology [facility] [address] [facility] [place] [phone] Xavi Gramajo MD [address] [facility] [place] [address] 12/16/2023 4:30 PM EDT Office Visit Sleep Disorders [facility] [address] [place] [phone] Radha Caballero CRNP [address] [place] [address] 12/24/2023 2:30 PM EDT Office Visit Otolaryngology [facility] [address] [place] [address] Dioni Jean-Baptiste DO [address] [place] [address] 04/21/2024 2:40 PM EDT Office Visit [facility] [address] [place] [address] Chuy Batista MD [address] [place] [address] Health Maintenance Due Date Last Done Comments Albumin/Creatinine Ratio 1963 DTaP,Tdap,and Td Vaccines (1 - Tdap) 1964 Depression Screening 04/29/2021 04/29/2020 COVID-19 Vaccine ( season) 2023 07/22/2022, 07/22/2022, 02/11/2022, Additional history exists Influenza Vaccine (FLU shot) (Season Ended) 2024 05/29/2022, 05/27/2021, 06/13/2020, Additional history exists GFR 05/14/2024 11/12/2023, 10/15, 10/25/2023, Additional history exists CKD PHOS USE SMARTSET 59415 09/11/202408/17, 09/11/2023, 07/14/2021, Additional history exists CKD HGB USE SMARTSET 55208 11/11/202411/11, 11/12/2023, 11/03/2023, Additional history exists Pneumococcal Vaccine: 65+ Years [...] the patient have Health Care Power of [employer] Head? No Care Teams Barrel Maker Relationship Specialty Start Date End Date Chuy Batista MD [address] [place] [address] PCP - General Family Medicine 07/11/14 documented as of this encounter
[2023-11-24] MEDS: FLUTICASONE FUROATE 200MCG 14 PUFFS/INHALER INH SCH (09:04)
[2023-11-24] MEDS: cefTRIAXone SODIUM 2,000 MG in DEXTROSE 5 % MINI-B 50 ML IV SCH (09:04)
[2023-11-24] MEDS: CEROVITE ADV FORMULA TAB PO SCH (09:05)
[2023-11-24] MEDS: MIDODRINE HCL 2.5 MG TAB PO SCH (09:05)
[2023-11-24] MEDS: FLUTICASONE PROPIONATE NA SPR 16 GM BTL SCH (09:05)
[2023-11-24] MEDS: VITAMIN B COMPLEX TAB PO SCH (09:05)
[2023-11-24] MEDS: MONTELUKAST SODIUM 10 MG TABLET PO SCH (09:05)
[2023-11-24] MEDS: FERROUS SULFATE 325 MG TAB PO SCH (09:05)
[2023-11-24] MEDS: UMECLIDINIUM/VILANTEROL 62.5/25MCG 7 PUFFS/INHALER INH SCH (09:06)
[2023-11-24] MEDS: MEMANTINE HCL 10 MG TAB PO SCH (09:06)
[2023-11-24] MEDS: PANTOprazole 40 MG TAB PO SCH (09:11)
[2023-11-24] MEDS: AMOXICILLIN/CLAVULANATE 875 MG TAB PO SCH (11:07)
--- OUTSIDE RECORDS SUMMARY | 2023-11-24 11:38 | External Medical Summary | Summary of Care ---
Author Name Unknown Organization [facility] Address [address] [place] [address] Phone [phone] Care Team Providers Care Frame Builder Name Role Phone Chuy Batista MD Primary Care Provider +1- [phone] Reason for Visit * Reason Onset Date Comments Home Health 11/16/2023 Encounter Details Date Type Department Care Team (Late st Contact Info) Description 11/16/2023 Telephone [facility] [address] [place] [address] Chuy Batista MD [address] [place] [address] Home Health Allergies Active Allergy Reactions Criticality Noted Date Comments Chocolate Diarrhea 05/14/2023 Chocolate Flavor High 10/09/2023 Other Reaction(s): DIARRHEA/ Cannot take, interacts w/ medications. Clindamycin Hcl 09/24/2005 rash Cranberry 10/20/2023 Iodinated Contrast Media 10/01/2015 Ioversol Other (Please comment) High 08/10/[address] IV DYE Pembrolizumab High 10/10/2023 Other Reaction(s): myocarditis documented as of this encounter (statuses as of 11/23/2023) Medications Medication Sig Dispensed Refills Start Date [...] the morning. 90 Capsule 1 11/12/2023 Active Medihoney Wound/Burn Dressing External GelIndications:Pr essure injury of sacral region, stage 2 (HCC) Apply topically to affected area daily. Apply to pressure ulcer of buttocks. 88 mL 3 11/12/2023 Active documented as of this encounter (statuses as of 11/23/2023) Active Problems Problem Noted Date Diagnosed Date [...] as of this encounter (statuses as of 11/23/2023) Resolved Problems Problem Noted Date Diagnosed Date [...] as of this encounter (statuses as of 11/23/2023) Immunizations Name Administration Dates Next Due COVID-19 mRNA, LNP-s, No Pre serve, 2-Dose Series (Virtual Paper) 05/30/2021,10/29/2020,10/08/2020 COVID-19, LNP-s, No Preserve , Prosper-sucrose, [...] encounter Miscellaneous Notes * Telephone Encounter - Ana Garcia LPN - 11/23/2023 2:54 PM EDT BAUDILIO Arechiga is calling to check on the status of previous message. Asks that the order is faxed to [facility] in [place]. DME was faxed and confirmation was received. * Telephone Encounter - Lorie Corona OSA - 11/18/2023 10:25 AM EDT [facility] calling they do not handle this kind of equipment order needs to be sent to a DME company theysaid. * Telephone Encounter - Ashely Hanson LPN - 11/18/2023 9:36 AM EDT DME order was sent to [facility] Home health via fax. [phone] * Telephone Encounter - Chuy Batista MD - 11/17/2023 5:53 PM EDT DME signed - please assist with getting them requested alternating pressure mattress * Telephone Encounter - Ashlee Alarcon LPN - 11/16/2023 3:39 PM EDT Concerns Hawk OT, Calling from: [facility] Report/Concerns of: pressure sores. Symptoms: 4 out of 10 pain bilateral buttocks. Vitals: T 97.7 P 99 RR 18 BP 132/72 sitting SP O2 96 Lung sounds clear Weight n/a Blood sugar n/a Narrative: Hawk calling from [facility] HH. OT. Patient has 2 open areas 1 and 1/2 cm by 1 cm with a depth of 0.1 cm on both buttocks Had them since admission. Are now bigger. They had been 0.5 by 0.5 with the same depth of 0.1cm He does have a gel topper for the hospital bed that he has at home. It is not working for him. Asking for an alternating pressure air mattress instead to [facility]. At this time cleansing with mild soap, water, apply hydrogel and border gauze until able to case picker meta honey from pharmacy. He will check with them and see if it was picked up. He doesn't know. In the chart nurses have it listed a stage 2 on the right and left is a stage 3. Call back Hawk with any advice or orders at [phone] Please fax new orders to [facility] Home Health documented in this encounter Plan of Treatment Upcoming Encounters Date Type Department Care Team (Late st Contact Info) Description 11/26/2023 2:20 PM EDT Office Visit Neurology [facility] [address] [facility] [place] [address] Ellie Duncan MD [address] [facility] [place] [address] 11/29/2023 1:00 PM EDT Office Visit [facility] [address] [facility] [place] [phone] Deondre Hill MD [address] [place] [address] 11/30/2023 1:30 PM EDT Cardiac Studies Cardiac Studies [address] [place] [address] 12/13/2023 11:00 AM EDT Office Visit Hematology/Oncology [facility] 200 [facility] [place] [phone] Sarah Condon CRNP [address] [place] [address] [place] [address] 12/13/2023 11:00 AM EDT Office Visit Cardiology, [facility] 132 [facility] [place] [address] Zak Rubio, [address] [place] [address] 12/15/2023 2:00 PM EDT Office Visit Hematology/Oncology [facility] [address] [facility] [place] [phone] Xavi Gramajo MD [address] [facility] [place] [address] 12/16/2023 4:30 PM EDT Office Visit Sleep Disorders Ctr [facility] [address] [place] [phone] Radha Caballero CRNP [address] [place] [address] 12/24/2023 2:30 PM EDT Office Visit Otolaryngology [facility] [address] [facility] [place] [address] Dioni Jean-Baptiste DO [address] [place] [address] 04/21/2024 2:40 PM EDT Office Visit [facility] [address] [place] [address] Chuy Batista MD [address] [place] [address] Health Maintenance Due Date Last Done Comments Albumin/Creatinine Ratio 1963 DTaP,Tdap,and Td Vaccines (1 - Tdap) 1964 Depression Screening 04/29/2021 04/29/2020 COVID-19 Vaccine ( - season) 2023 07/22/2022, 07/22/2022, 02/11/2022, Additional history exists Influenza Vaccine (FLU shot) (Season Ended) 2024 05/29/2022, 05/27/2021, 06/13/2020, Additional history exists GFR 05/14/2024 11/12/2023, 10/15, 10/25/2023, Additional history exists CKD PHOS USE SMARTSET 32611 09/11/202408/17, 09/11/2023, 07/14/2021, Additional history exists CKD HGB USE SMARTSET 82438 11/11/202411/11, 11/12/2023, 11/03/2023, Additional history exists Pneumococcal [...] as of this encounter Visit Diagnoses Diagnosis Pressure injury of sacral region, stage 2 (HCC)- Primary documented in this encounter Advance [...] the patient have Health Care Power of Practice Management Consultant? No Care Teams Frame Builder Relationship Specialty Start Date End Date Chuy Batista MD [address] [place] [address] PCP - General Family Medicine 07/11/14 documented as of this encounter
--- NOTE | 2023-11-24 12:43 | Hospitalist Progress Note ---
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 He was hospitalized from October 10 to October 19, 2022 with shortness of breath. Was started on midodrine at that time for orthostatic hypotension. Discharged to rehab. He was home for the last 2 weeks; had 2 falls. Last fall was a day before presentation to the hospital. Possible UTI Orthostatic hypotension/ambulatory dysfunction Acute kidney injury, resolved Patient presents with presyncope and falls History of orthostatic hypotension on midodrine No leukocytosis Creatinine increased to 1.4 on admission; down trended Urinalysis suggestive of infection Chest x-ray personally reviewed; no acute finding Head CTno acute finding Started on ceftriaxone for possible UTI/aspiration pneumonitis. Will follow-up on urine culture. 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 As per his oncologist note ; plan to taper down 10 mg every week Patient cannot be completed taper off the steroid due to history of adrenal insufficiency. Will resume Bactrim tomorrow if creatinine continues to be stable H/O DVT/PE S/P IVC filter H/O right lower extremity DVT--chronic Carcinoma of the bladder/Prostate H/O recurrent hematuria in the past Received Keytruda Follows with [facility] oncology Dr. Xavi Gramajo as outpatient Needs follow-up with oncology on discharge Other chronic conditions: H/O Aortic stenosis H/O dementia--no acute issues. Reorient frequently to minimize delirium. Continue Aricept, Namenda Pulmonary hypertension GERD--continue PPI H/O adrenal insufficiency--hydrocortisone on hold while on prednisone taper course. Will need to follow-up with endocrinology after completing taper course DVTheparin, monitor for hematuria Time spent evaluating patient, direct bedside care, chart review, placing orders, interpretation of diagnostic studies, discussion with consultants, patient, and family members, as well as other required patient management activities is 50 minutes Please note the above document was generated using voice recognition software. It may contain grammatical, syntax or spelling errors. Any formal questions or concerns about the content, text or information contained within the body of this dictation should be directly addressed to the provider for clarification Admission and Anticipated Discharge Date Admission Date: November 23, 2023 Subjective Patient seen and examined at bedside. Comfortable; not in distress. Denies fever, chills, chest pain, shortness of breath, abdominal pain or urinary symptoms. Review of Systems Review of Systems: All systems reviewed & are unremarkable except as noted in Subjective Results & Data Results & Data Vital Signs (Past 12 Hours) Vital Signs Temp Pulse Pulse Pulse Resp BP Pulse Ox 11/24/23 10:45 11/24/23 10:42 36.5 C 74 16 154/82 H 99 11/24/23 07:34 68 11/24/23 04:00 36.9 C 59 L 18 167/89 H 98 O2 Del Method 11/24/23 10:45 Room Air 11/24/23 10:42 Room Air 11/24/23 07:34 11/24/23 04:00 (4) Myocarditis Chronicity: chronic Myocarditis type: unspecified Qualified Code(s): I51.4 - Myocarditis, unspecified
[2023-11-24] MEDS: predniSONE 10 MG TABLET PO SCH (14:45)
[2023-11-24] MEDS: AMPICILLIN 2,000 MG in SODIUM CHLOR 0.9% MINI-B 100 ML IV SCH (16:49)
[2023-11-24] MEDS ORDERED: NON-FORMULARY MEDICATION (Fluticasone-Umeclidin-Vilanter [Trelegy Ellipta] 200-62.5-25 mcg INH SCH (21:00)
[2023-11-24] MEDS: guaiFENesin SUGAR FREE 200 MG/10 ML UDC PO PRN (22:43)
[2023-11-24] MEDS: LORazepam 0.5 MG TAB SL STA (22:43)
[2023-11-24] MEDS: LABETALOL HCL IV 5 MG/ML 20ML IV STA (23:12)
[2023-11-25] MEDS: hydrALAZINE HCL 20 MG/ML VIAL IV ONE (00:01)
[2023-11-25] MEDS: LORazepam 0.25 MG in SYRINGE 0.125 ML IV STA (03:14)
[2023-11-25 06:08] LABS: Basophils # (auto) 0.01 K/uL (0.00-0.20); Basophils % (auto) 0.1 %; Hematocrit (blood only) 37.9 % (42.0-52.0); Hemoglobin 12.8 g/dl (14.0-18.0); Immature Granulocytes # (auto) 0.16 K/uL (0.01-0.20); Lymphocytes # (auto) 1.69 K/uL (1.20-3.40); Lymphocytes % (auto) 20.9 %; Mean Corpuscular Hemoglobin 30.8 pg (25.0-34.0); Mean Corpuscular Hgb Conc 33.8 g/dL (32.0-36.0); Mean Corpuscular Volume 91.3 fL (80.0-100.0); Mean Platelet Volume 8.6 fL (9.4-12.4); Monocytes # (auto) 0.31 K/uL (0.11-0.59); Monocytes % (auto) 3.8 %; Neutrophils % (auto) 73.2 %; Nucleated RBC # (auto) 0.02 K/uL (0.00-0.12); Nucleated RBC % (auto) 0.2 %; Platelet Count 187 K/uL (130-400); RDW Coefficient of Variation 16.9 % (11.5-14.5); RDW Standard Deviation 55.8 fL (36.4-46.3); Red Blood Count 4.15 M/uL (4.70-6.10); White Blood Count 8.07 K/ul (4.8-10.8)
[2023-11-25 06:26] LABS: BUN Creatinine Ratio 16.5 (10-20); Calcium 8.3 mg/dl (8.6-10.3); Creatinine Clr Calc Pharmacy 67.7 ml/min; Est GFR (African American) 86.9 ml/min; Potassium 3.6 mmol/L (3.5-5.1)
[2023-11-25] MEDS: DONEPEZIL HCL 10 MG TAB PO SCH (08:27)
--- OUTSIDE RECORDS SUMMARY | 2023-11-25 09:44 | External Medical Summary | Summary of Care ---
Author Name Unknown Organization [facility] Address [address] [place] [address] Phone [phone] Care Team Providers Care Cabinetmaker Maintenance Name Role Phone Chuy Batista MD Primary Care Provider +1- [phone] Reason for Visit * Reason Onset Date Comments FYI 11/24/2023 Encounter Details Date Type Department Care Team (Late st Contact Info) Description 11/24/2023 Telephone [facility] [address] [place] [address] Chuy Batista MD [address] [place] [address] FYI Allergies Active Allergy Reactions Criticality Noted Date Comments Chocolate Diarrhea 05/14/2023 Chocolate Flavor High 10/09/2023 Other Reaction(s): DIARRHEA/ Cannot take, interacts w/ medications. Clindamycin Hcl 09/24/2005 rash Cranberry 10/20/2023 Iodinated Contrast Media 10/01/2015 Ioversol Other (Please comment) High 08/10/[address] IV DYE Pembrolizumab High 10/10/2023 Other Reaction(s): myocarditis documented as of this encounter (statuses as of 11/24/2023) Medications Medication Sig Dispensed Refills Start Date [...] the morning. 90 Capsule 1 11/12/2023 [facility] External GelIndications:Pr essure injury of sacral region, stage 2 (HCC) Apply topically to affected area daily. Apply to pressure ulcer of buttocks. 88 mL 3 11/12/2023 Active documented as of this encounter (statuses as of 11/24/2023) Active Problems Problem Noted Date Diagnosed Date [...] as of this encounter (statuses as of 11/24/2023) Resolved Problems Problem Noted Date Diagnosed Date [...] as of this encounter (statuses as of 11/24/2023) Immunizations Name Administration Dates Next Due COVID-19 mRNA, LNP-s, No Pre serve, 2-Dose Series ([email or web address]) 05/30/2021,10/29/2020,10/08/2020 COVID-19, LNP-s, No Preserve , Prosper-sucrose, [...] Telephone Encounter - Chuy Batista MD - 11/24/2023 9:11 AM EDT Noted - anticipate he will need placement following hospitalization. * Telephone Encounter - Radha Boyd OSA - 11/24/2023 8:37 AM EDT calling to let provider know that patient has been admitted to [facility], home health nurse recommended he be in the hospital. notes he has a UTI and she is not sure what else is going on. documented in this encounter Plan of Treatment Upcoming Encounters Date Type Department Care Team (Late st Contact Info) Description 11/26/2023 2:20 PM EDT Office Visit Neurology [facility] 200 [facility] [place] [address] Ellie Duncan MD 200 [facility] [place] [address] 11/29/2023 1:00 PM EDT Office Visit [facility] [address] [place] [phone] Deondre Hill MD [address] [place] [address] 11/30/2023 1:30 PM EDT Cardiac Studies Cardiac Studies [address] [place] [address] 12/13/2023 11:00 AM EDT Office Visit Hematology/Oncology [facility] 200 [facility] [place] [phone] Sarah Condon CRNP [address] [place] [address] [place] [id number] 12/13/2023 11:00 AM EDT Office Visit Cardiology, [facility] [address] [place] [address] Zak Rubio DO [address] [place] [address] 12/15/2023 2:00 PM EDT Office Visit Hematology/Oncology [facility] 200 [facility] [place] [phone] Xavi Gramajo MD [address] [facility] [place] [address] 12/16/2023 4:30 PM EDT Office Visit Sleep Disorders Ctr [facility] [address] [place] [phone] Radha Caballero CRNP [address] [place] [address] 12/24/2023 2:30 PM EDT Office Visit Otolaryngology [facility] [address] [place] [address] Dioni Jean-Baptiste DO [address] [place] [address] 04/21/2024 2:40 PM EDT Office Visit [facility] [address] [place] [address] Chuy Batista MD [address] [place] [address] Health Maintenance Due Date Last Done Comments Albumin/Creatinine Ratio 1963 DTaP,Tdap,and Td Vaccines (1 - Tdap) 1964 Depression Screening 04/29/2021 04/29/2020 COVID-19 Vaccine ( - season) 2023 07/22/2022, 07/22/2022, 02/11/2022, Additional history exists Influenza Vaccine (FLU shot) (Season Ended) 2024 05/29/2022, 05/27/2021, 06/13/2020, Additional history exists GFR 05/14/2024 11/12/2023, 10/15, 10/25/2023, Additional history exists CKD PHOS USE SMARTSET 39333 09/11/202408/17, 09/11/2023, 07/14/2021, Additional history exists CKD HGB USE SMARTSET 33376 11/11/202411/11, 11/12/2023, 11/03/2023, Additional history exists Pneumococcal [...] the patient have Health Care Power of Senior Back End Java Developer? No Care Teams Cabinetmaker Maintenance Relationship Specialty Start Date End Date Chuy Batista MD [address] [place] [address] PCP - General Family Medicine 07/11/14 documented as of this encounter
--- OUTSIDE RECORDS SUMMARY | 2023-11-25 09:44 | External Medical Summary | Summary of Care ---
Author Name Unknown Organization [facility] Address [address] [place] [address] Phone [phone] Care Team Providers Care Shuttle Driver Name Role Phone Chuy Batista MD Primary Care Provider +1- [phone] Reason for Visit * Reason Onset Date Comments Home Health 11/23/2023 Encounter Details Date Type Department Care Team (Late st Contact Info) Description 11/23/2023 Telephone [facility] [address] [place] [address] Chuy Batista MD [address] [place] [address] Home Health Allergies Active Allergy [...] the morning. 90 Capsule 1 11/12/2023 [facility] External GelIndications:Pr essure injury [...] mRNA, LNP-s, No Pre serve, 2-Dose Series (OneID) 05/30/2021,10/29/2020,10/08/2020 COVID-19, LNP-s, No Preserve , Prosper-sucrose, [...] Encounter - Chuy Batista MD - 11/24/2023 9:04 AM EDT Agree with decision and need for placement * Telephone Encounter - Ashlee Alarcon LPN - 11/23/2023 4:12 PM EDT Report/Concerns of: Fall Symptoms: weakness- generalized Vitals: T 97.2 P 83 RR 16 BP 110/70 SP O2 98 Lung sounds clear Weight unable Blood sugar n/a Narrative: Vanessa BABB calling from [facility]. She went out and saw the patient. They called the ambulance and sent him to the hospital for placement. Both buttocks dressing covered with diarrhea. Both buttocks are angry red. He is inappropriate to be in the home. is overwhelmed. She never picked up the meta-honey. She was just using the hydro gel. Call back [facility] with any advice or orders at [facility] Home Health * Telephone Encounter - Ana Garcia LPN - 11/23/2023 9:13 AM EDT HOLLEY Cm from [facility] is calling. States that she received a call from the pt's Ivet reporting the pt had a fall this morning in his living room. Pt said that his legs just gave out. Ivet helped the pt off of the floor. Pt obtained a small scrape to one of his arms- pt's did not specify which one. Did not hit his head. Pt and pt's declined needing to go to there ER. When she called Ivet back to tell her a nurse will be coming out to see the pt today, pt was eating breakfast . FYI * Telephone Encounter - Maribel Morales LPN - 11/23/2023 8:37 AM EDT PT/OT/ST Eval Start of Care/Continuation Cristina Speech Therapist , Calling from: [facility] Speech Therapist Plan of care: 1 times per week for 3 weeks: Focusing on: Cognitive commutative function Concerns: yes Fall Symptoms: none Narrative: called and reported a fall this morning. She did not get details of the fall. She gave the [facility]'s 800 number to call. Also a fall without injury last week, unwitnessed, he was trying to get out of bed and get a bottleof water. She is placing Social work referral, as is having a hard time taking care of him. She stated that if PCP wants a nurse to go out and check on him to call and they can arrange for that. [facility] HH Advised that additional visit orders will be signed by Chuy Batista MD and to fax to the office for signature documented in this encounter Plan of Treatment Upcoming Encounters Date Type Department Care Team (Late st Contact Info) Description 11/26/2023 2:20 PM EDT Office Visit Neurology [facility] [address] [facility] [place] [address] Ellie Duncan MD [address] [facility] [place] [address] 11/29/2023 1:00 PM EDT [address] [phone] Deondre Hill MD [address] [place] [address] 11/30/2023 1:30 PM EDT Cardiac Studies Cardiac Studies [address] [place] [address] 12/13/2023 11:00 AM EDT Office Visit Hematology/Oncology [facility] 200 [place] [address] Sarah Condon CRNP [address] [place] [address] [place] [address] 12/13/2023 11:00 AM EDT Office Visit Cardiology, [facility] [address] [facility] [place] [address] Zak Rubio, 132 [facility] [place] [address] 12/15/2023 2:00 PM EDT Office Visit Hematology/Oncology [facility] [address] [facility] [place] [phone] Xavi Gramajo MD [address] [facility] [place] [address] 12/16/2023 4:30 PM EDT Office Visit Sleep Disorders Ctr [facility] 132 [facility] [place] [phone] Radha Caballero CRNP [address] [place] [address] 12/24/2023 2:30 PM EDT Office Visit Otolaryngology [facility] [address] [facility] [place] [address] Dioni Jean-Baptiste DO 132 [facility] [place] [address] 04/21/2024 2:40 PM EDT Office Visit [facility] [address] [place] [phone] Chuy Batista MD [address] [place] [address] Health Maintenance Due Date Last Done Comments Albumin/Creatinine Ratio 1963 DTaP,Tdap,and Td Vaccines (1 - Tdap) 1964 Depression Screening 04/29/2021 04/29/2020 COVID-19 Vaccine ( season) 2023 07/22/2022, 07/22/2022, 02/11/2022, Additional history exists Influenza Vaccine (FLU shot) (Season Ended) 2024 05/29/2022, 05/27/2021, 06/13/2020, Additional history exists GFR 05/14/2024 11/12/2023, 10/15, 10/25/2023, Additional history exists CKD PHOS USE SMARTSET 15934 09/11/202408/17, 09/11/2023, 07/14/2021, Additional history exists CKD HGB USE SMARTSET 79232 11/11/202411/11, 11/12/2023, 11/03/2023, Additional history exists Pneumococcal [...] patient have Health Care Power of Senior Sql Database Developer? No Care Teams Shuttle Driver Relationship Specialty Start Date End Date Chuy Batista MD [address] [place] [address] PCP - General Family Medicine 07/11/14 documented as of this encounter
--- OUTSIDE RECORDS SUMMARY | 2023-11-25 09:45 | External Medical Summary | Summary of Care ---
Author Name Unknown Organization [facility] Address [address] [facility] [place] [address] Phone [phone] Care Team Providers Care Body Technician Name Role Phone Chuy Batista MD Primary Care Provider [phone]- [phone] Reason for Visit * Reason Onset Date Comments Follow Up 11/22/2023 Encounter Details Date Type Department Care Team (Late st Contact Info) Description 11/22/2023 Telephone Hematology/Oncology [facility] [place] 200 [facility] [place] [address] Xavi Gramajo MD 200 [facility] [address] Follow Up Allergies Active Allergy Reactions Criticality [...] the morning. 90 Capsule 1 11/12/2023 Active [facility] Wound/Burn Dressing External GelIndications:Pr essure injury of [...] mRNA, LNP-s, No Pre serve, 2-Dose Series (Joobili) 05/30/2021,10/29/2020,10/08/2020 COVID-19, LNP-s, No Preserve , Prosper-sucrose, [...] 11/26/2023 2:20 PM EDT Office Visit Neurology [facility] 200 [facility] [place] [address] Ellie Duncan MD 200 [facility] [place] [address] 11/29/2023 1:00 PM EDT Office Visit [facility] [address] [place] [phone] Deondre Hill MD [address] [place] [address] 11/30/2023 1:30 PM EDT Cardiac Studies Cardiac Studies [address] [place] [address] 12/13/2023 11:00 AM EDT Office Visit Hematology/Oncology [facility] 200 [facility] [place] [address] [facility] [address] 12/13/2023 11:00 AM EDT Office Visit Cardiology, [facility] [address] [place] [address] Zak Rubio DO [address] [place] [address] 12/15/2023 2:00 PM EDT Office Visit Hematology/Oncology [facility] 200 [facility] [place] [phone] Xavi Gramajo MD 200 [facility] [place] [address] 12/16/2023 4:30 PM EDT Office Visit Sleep Disorders Ctr [facility] [address] [place] [phone] Radha Caballero CRNP [address] [place] [address] 12/24/2023 2:30 PM EDT Office Visit Otolaryngology [facility] [address] [place] [address] Dioni Jean-Baptiste DO [address] [place] [address] 04/21/2024 2:40 PM EDT Office Visit [facility] [address] [place] [address] Chuy Batista MD [address] [place] [address] Health Maintenance Due Date Last Done Comments Albumin/Creatinine Ratio 1963 DTaP,Tdap,and Td Vaccines (1 - Tdap) 1964 Depression Screening 04/29/2021 04/29/2020 COVID-19 Vaccine ( season) 2023 07/22/2022, 07/22/2022, 02/11/2022, Additional history exists Influenza Vaccine (FLU shot) (Season Ended) 2024 05/29/2022, 05/27/2021, 06/13/2020, Additional history exists GFR 05/14/2024 11/12/2023, 10/15, 10/25/2023, Additional history exists CKD PHOS USE SMARTSET 69027 09/11/202408/17, 09/11/2023, 07/14/2021, Additional history exists CKD HGB USE SMARTSET 02594 11/11/202411/11, 11/12/2023, 11/03/2023, Additional history exists Pneumococcal [...] the patient have Health Care Power of Hotel Night Auditor? No Care Teams Body Technician Relationship Specialty Start Date End Date Chuy Batista MD [address] [place] [address] PCP - General Family Medicine 07/11/14 documented as of this encounter
--- OUTSIDE RECORDS SUMMARY | 2023-11-25 09:45 | External Medical Summary | Summary of Care ---
Author Name Unknown Organization [facility] Address [address] [facility] [place] [address] Phone [phone] Care Team Providers Care Cpa Tax Name Role Phone Chuy Batista MD Primary Care Provider [phone]- [phone] Reason for Visit * Reason Onset Date Comments Follow Up 11/22/2023 Encounter Details Date Type Department Care Team (Late st Contact Info) Description 11/22/2023 Telephone Hematology/Oncology [facility] [place] 200 [facility] [place] [address] Xavi [facility] MD 200 [facility] [address] Follow Up Allergies Active Allergy Reactions Criticality [...] the morning. 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 Re; Lab request: She will need to speak with the provider in the hospital in regards to patient's lab work. * Telephone Encounter - Toña Ceballos LPN - 11/24/2023 8:45 AM EDT Called and spoke with patient's , Ivet, reminded her to have patient's lab work done for Dr. Gramajo. verbalized understanding then stated the patient was sent to the [facility] ED yesterday by [facility]. She states patient was admitted to [facility] yesterday for a UTI and [facility] is requesting patient be sent to "rehab" upon discharge. She requested this office put the referral in for the rehab facility. Advised patient to speak with the patient's in-hospital Inspection Machine Tender or Coke Still Cleaner in regardsto any admission to a facility after discharge. Patient's verbalized understanding. Patient's is requesting to have patient's lab orders sent to [facility]. Advised her that as patientis in-patient she will need to speak with the Provider in the hospital in regards to his lab work. She does not verbalize understanding and states she wants this nurse to verify this information. * Telephone Encounter - Des Mathew RN - 11/22/2023 4:09 PM EDT Pt due for lab work. Called to remind, no answer, left detailed message on machine. documented in this encounter Plan of Treatment Upcoming Encounters Date Type Department Care Team (Late st Contact Info) Description 11/26/2023 2:20 PM EDT Office Visit [facility] [address] [place] [address] Ellie Duncan MD [address] [place] [address] [address] 11/29/2023 1:00 PM EDT Office Visit [facility] [address] [facility] [phone] Deondre Hill [facility] [address] [facility] [address] 11/30/2023 1:30 PM EDT Cardiac Studies Cardiac Studies [address] [place] [address] 12/13/2023 11:00 AM EDT Office Visit Hematology/Oncology [facility] 200 [place] [address] Sarah Condon CRNP [address] [place], [place] [address] [address] 12/13/2023 11:00 AM EDT Office Visit Cardiology, [facility] [address] [place] [address] Zak Rubio DO [address] [place] [address] 12/15/2023 2:00 PM EDT Office Visit Hematology/Oncology [facility] [address] [facility] [place] [phone] Xavi Gramajo MD 200 [place] [address] 12/16/2023 4:30 PM EDT Office Visit Sleep Disorders Ctr [facility] [address] [place] [phone] Radha Caballero CRNP [address] [place] [address] 12/24/2023 2:30 PM EDT Office Visit Otolaryngology [facility] [address] [place] [address] Dioni Jean-Baptiste, DO [address] [place] [address] 04/21/2024 2:40 PM EDT Office Visit [facility] [address] [place] [phone] Chuy Batista MD [address] [place] [address] Health Maintenance Due Date Last Done Comments Albumin/Creatinine Ratio 1963 DTaP,Tdap,and Td Vaccines (1 - Tdap) 1964 Depression Screening 04/29/2021 04/29/2020 COVID-19 Vaccine ( - season) 2023 07/22/2022, 07/22/2022, 02/11/2022, Additional history exists Influenza Vaccine (FLU shot) (Season Ended) 2024 05/29/2022, 05/27/2021, 06/13/2020, Additional history exists GFR 05/14/2024 11/12/2023, 10/15, 10/25/2023, Additional history exists CKD PHOS USE SMARTSET 25936 09/11/202408/17, 09/11/2023, 07/14/2021, Additional history exists CKD HGB USE SMARTSET 77001 11/11/202411/11, 11/12/2023, 11/03/2023, Additional history exists Pneumococcal [...] the patient have Health Care Power of Diet Technician Registered? No Care Teams Cpa Tax Relationship Specialty Start Date End Date Chuy Batista MD [address] [facility] [place] [address] PCP - General Family Medicine 07/11/14 documented as of this encounter
--- NOTE | 2023-11-25 13:22 | Hospitalist Progress Note ---
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 He was hospitalized from October 10 to October 19, 2022 with shortness of breath. Was started on midodrine at that time for orthostatic hypotension. Discharged to rehab. He was home for the last 2 weeks; had 2 falls. Last fall was a day before presentation to the hospital. Possible UTI Orthostatic hypotension/ambulatory dysfunction Acute kidney injury, resolved Patient presents with presyncope and falls History of orthostatic hypotension on midodrine No leukocytosis Creatinine increased to 1.4 on admission; down trended Urinalysis suggestive of infection Chest x-ray personally reviewed; no acute finding Head CTno acute finding Started on ceftriaxone for possible UTI/aspiration pneumonitis. Urine culture shows possible Enterococcus; changed to ampicillin. Plan to treat for 7 days Orthostatic vitals every shift Continue midodrine; will titrate upward if necessary. 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 As per his oncologist note ; plan to taper down 10 mg every week Patient cannot be completed taper off the steroid due to history of adrenal insufficiency. On Bactrim for PJP prophylaxis H/O DVT/PE S/P IVC filter H/O right lower extremity DVT--chronic Carcinoma of the bladder/Prostate H/O recurrent hematuria in the past Received Keytruda Follows with [facility] oncology Dr. Xavi Gramajo as outpatient Needs follow-up with oncology on discharge Other chronic conditions: H/O Aortic stenosis H/O dementia--no acute issues. Reorient frequently to minimize delirium. Continue Aricept, Namenda Pulmonary hypertension GERD--continue PPI H/O adrenal insufficiency--hydrocortisone on hold while on prednisone taper course. Will need to follow-up with endocrinology after completing taper course DVTheparin, monitor for hematuria Discussed with over the phone on November 25, 2023. Answer questions/queries. Time spent evaluating patient, direct bedside care, chart review, placing orders, interpretation of diagnostic studies, discussion with consultants, patient, and family members, as well as other required patient management activities is 50 minutes Please note the above document was generated using voice recognition software. It may contain grammatical, syntax or spelling errors. Any formal questions or concerns about the content, text or information contained within the body of this dictation should be directly addressed to the provider for clarification Admission and Anticipated Discharge Date Admission Date: November 24, 2023 Subjective Overnight patient became hypotensive requiring antihypertensive Devlin catheter was also placed due to concern for sacral wounds Patient seen and examined at bedside. Comfortable; not in distress. Denies fever, chills, chest pain, shortness of breath, abdominal pain or urinary symptoms. Review of Systems Review of Systems: All systems reviewed & are unremarkable except as noted in Subjective Physical Exam Physical Exam: Physical Exam: Vitals signs as noted above General Appearance:Moderately built and nourished, no apparent distress Respiratory/Chest: Normal breath sounds, CTA, No accessory muscle use Cardiovascular: S1, S2, + murmur Abdomen/GI:Soft, Non tender, Bowel sounds present Extremities/Musculoskeletal:normal inspection, RLE edema with venous stasis, LLE trace edema Neurologic/Psych:AAOx2, grossly no focal neurological deficits Skin: normal color, warm Results & Data Results & Data Vital Signs (Past 12 Hours) Vital Signs Temp Pulse Pulse Resp BP Pulse Ox O2 Del Method 11/25/23 11:46 36.7 C 70 14 151/89 H 95 Room Air 11/25/23 07:46 36.3 C L 67 14 169/93 H 95 Room Air 11/25/23 07:29 67 11/25/23 03:06 36.5 C 73 20 184/104 H 94 Room Air (4) Myocarditis Myocarditis type: unspecified Chronicity: chronic Qualified Code(s): I51.4 - Myocarditis, unspecified
--- NOTE | 2023-11-26 05:51 | Electrocardiogram Report ---
Test Reason : Blood Pressure : / mmHG Vent. Rate : 079 BPM Atrial Rate : 079 BPM P-R Int : 156 ms QRS Dur : 080 ms QT Int : 374 ms P-R-T Axes : 034 016 046 degrees QTc Int : 428 ms Normal sinus rhythm Normal ECG When compared with ECG of 09-OCT-2023 21:50, No significant change was found Confirmed by Massimo Reyes ([id number]) on 11/26/2023 5:50:46 AM Referred By: REFERRED SELF Confirmed By:Massimo Reyes
[2023-11-26 07:38] LABS: Basophils # (auto) 0.02 K/uL (0.00-0.20); Basophils % (auto) 0.2 %; Eosinophils # (auto) 0.02 K/uL (0.00-0.50); Eosinophils % (auto) 0.2 %; Hematocrit (blood only) 37.6 % (42.0-52.0); Hemoglobin 12.5 g/dl (14.0-18.0); Immature Granulocytes % (auto) 2.3 %; Lymphocytes # (auto) 2.14 K/uL (1.20-3.40); Lymphocytes % (auto) 24.8 %; Mean Corpuscular Hemoglobin 30.4 pg (25.0-34.0); Mean Corpuscular Hgb Conc 33.2 g/dL (32.0-36.0); Mean Corpuscular Volume 91.5 fL (80.0-100.0); Mean Platelet Volume 8.5 fL (9.4-12.4); Monocytes # (auto) 0.42 K/uL (0.11-0.59); Monocytes % (auto) 4.9 %; Neutrophils # (auto) 5.84 K/uL (1.40-6.50); Neutrophils % (auto) 67.6 %; Nucleated RBC # (auto) 0.03 K/uL (0.00-0.12); Nucleated RBC % (auto) 0.3 %; Platelet Count 192 K/uL (130-400); RDW Coefficient of Variation 17.8 % (11.5-14.5); RDW Standard Deviation 59.2 fL (36.4-46.3); Red Blood Count 4.11 M/uL (4.70-6.10); White Blood Count 8.64 K/ul (4.8-10.8)
[2023-11-26] MEDS: MIDODRINE HCL 2.5 MG TAB PO SCH (07:59)
[2023-11-26] MEDS: SULFAMETHOXAZOLE/TRIMETHOPRIM DS 800/160MG TAB PO SCH (08:02)
[2023-11-26 08:08] LABS: BUN Creatinine Ratio 15.6 (10-20); Calcium 8.3 mg/dl (8.6-10.3); Creatinine Clr Calc Pharmacy 54.1 ml/min; Est GFR (African American) 55.3 ml/min; Est GFR (Non-African American) 47.7 ml/min; Potassium 3.5 mmol/L (3.5-5.1)
[2023-11-26] MEDS: DOCUSATE SODIUM/SENNA 50/8.6MG TAB PO PRN (08:10)
--- NOTE | 2023-11-26 13:30 | Hospitalist Progress Note ---
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 He was hospitalized from October 10 to October 19, 2022 with shortness of breath. Was started on midodrine at that time for orthostatic hypotension. Discharged to rehab. He was home for the last 2 weeks; had 2 falls. Last fall was a day before presentation to the hospital. Possible UTI Orthostatic hypotension/ambulatory dysfunction Acute kidney injury, resolved Patient presents with presyncope and falls History of orthostatic hypotension on midodrine No leukocytosis Creatinine increased to 1.4 on admission; down trended Urinalysis suggestive of infection Urine culture growing Enterococcus faecalis Chest x-ray personally reviewed; no acute finding Head CTno acute finding Continue on ampicillin; Plan to treat for 7 days Orthostatic vitals every shift Midodrine increased to 5 mg 3 times a day as he continues to have orthostatic hypotension. 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 As per his oncologist note ; plan to taper down 10 mg every week Patient cannot be completed taper off the steroid due to history of adrenal insufficiency. On Bactrim for PJP prophylaxis H/O DVT/PE S/P IVC filter H/O right lower extremity DVT--chronic Carcinoma of the bladder/Prostate H/O recurrent hematuria in the past Received Keytruda Follows with [facility] oncology Dr. Xavi Gramajo as outpatient Needs follow-up with oncology on discharge Other chronic conditions: H/O Aortic stenosis H/O dementia--no acute issues. Reorient frequently to minimize delirium. Continue Aricept, Namenda Pulmonary hypertension GERD--continue PPI H/O adrenal insufficiency--hydrocortisone on hold while on prednisone taper course. Will need to follow-up with endocrinology after completing taper course DVTheparin, monitor for hematuria Dispositionpeer to peer done for rejection after acute rehab on November 26, 2023. Patient rejected for acute rehab; plan for family appeal as per case management. Time spent evaluating patient, direct bedside care, chart review, placing orders, interpretation of diagnostic studies, discussion with consultants, patient, and family members, as well as other required patient management activities is 50 minutes Please note the above document was generated using voice recognition software. It may contain grammatical, syntax or spelling errors. Any formal questions or concerns about the content, text or information contained within the body of this dictation should be directly addressed to the provider for clarification Admission and Anticipated Discharge Date Admission Date: November 24, 2023 Subjective Patient seen and examined at bedside. Comfortable; not in distress. Denies fever, chills, chest pain, shortness of breath, abdominal pain or urinary symptoms. No significant overnight events Review of Systems Review of Systems: All systems reviewed & are unremarkable except as noted in Subjective Physical Exam Physical Exam: Physical Exam: Vitals signs as noted above General Appearance:Moderately built and nourished, no apparent distress Respiratory/Chest: Normal breath sounds, CTA, No accessory muscle use Cardiovascular: S1, S2, + murmur Abdomen/GI:Soft, Non tender, Bowel sounds present Extremities/Musculoskeletal:normal inspection, RLE edema with venous stasis, LLE trace edema Neurologic/Psych:AAOx2, grossly no focal neurological deficits Skin: normal color, warm Results & Data Results & Data Vital Signs (Past 12 Hours) Vital Signs Temp Pulse Pulse Resp BP BP Pulse Ox 11/26/23 11:31 36.7 C 84 20 136/81 91 11/26/23 07:55 36.9 C 91 H 18 131/82 92 11/26/23 07:01 89 O2 Del Method 11/26/23 11:31 Room Air 11/26/23 07:55 Room Air 11/26/23 07:01 (4) Myocarditis Myocarditis type: unspecified Chronicity: chronic Qualified Code(s): I51.4 - Myocarditis, unspecified
[2023-11-26] MEDS: POLYETHYLENE (MIRALAX) 17 GM PACK PO SCH (13:57)
[2023-11-27 07:54] LABS: Basophils # (auto) 0.02 K/uL (0.00-0.20); Basophils % (auto) 0.3 %; Eosinophils # (auto) 0.02 K/uL (0.00-0.50); Eosinophils % (auto) 0.3 %; Hematocrit (blood only) 36.9 % (42.0-52.0); Hemoglobin 12.2 g/dl (14.0-18.0); Immature Granulocytes % (auto) 2.7 %; Lymphocytes # (auto) 2.33 K/uL (1.20-3.40); Lymphocytes % (auto) 31.8 %; Mean Corpuscular Hemoglobin 30.4 pg (25.0-34.0); Mean Corpuscular Hgb Conc 33.1 g/dL (32.0-36.0); Mean Platelet Volume 8.7 fL (9.4-12.4); Monocytes # (auto) 0.38 K/uL (0.11-0.59); Monocytes % (auto) 5.2 %; Neutrophils # (auto) 4.37 K/uL (1.40-6.50); Neutrophils % (auto) 59.7 %; Nucleated RBC # (auto) 0.03 K/uL (0.00-0.12); Nucleated RBC % (auto) 0.4 %; Platelet Count 170 K/uL (130-400); RDW Standard Deviation 59.7 fL (36.4-46.3); Red Blood Count 4.01 M/uL (4.70-6.10); White Blood Count 7.32 K/ul (4.8-10.8)
[2023-11-27 08:08] LABS: BUN Creatinine Ratio 18.2 (10-20); Calcium 8.5 mg/dl (8.6-10.3); Creatinine Clr Calc Pharmacy 57.8 ml/min; Est GFR (African American) 59.9 ml/min; Est GFR (Non-African American) 51.7 ml/min; Potassium 3.8 mmol/L (3.5-5.1)
--- NOTE | 2023-11-27 11:46 | Hospitalist Progress Note ---
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 He was hospitalized from October 10 to October 19, 2022 with shortness of breath. Was started on midodrine at that time for orthostatic hypotension. Discharged to rehab. He was home for the last 2 weeks; had 2 falls. Last fall was a day before presentation to the hospital. Urine tract infection Orthostatic hypotension/ambulatory dysfunction Acute kidney injury, resolved Patient presents with presyncope and falls History of orthostatic hypotension on midodrine No leukocytosis Creatinine increased to 1.4 on admission; down trended Urinalysis suggestive of infection Urine culture growing Enterococcus faecalis Chest x-ray personally reviewed; no acute finding Head CTno acute finding Continue on ampicillin; Plan to treat for 7 days Orthostatic vitals every shift Midodrine increased to 5 mg 3 times a day as he continues to have orthostatic hy potension. 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 As per his oncologist note ; plan to taper down 10 mg every week Patient cannot be completed taper off the steroid due to history of adrenal insufficiency. On Bactrim for PJP prophylaxis H/O DVT/PE S/P IVC filter H/O right lower extremity DVT--chronic Carcinoma of the bladder/Prostate H/O recurrent hematuria in the past Received Keytruda Follows with [facility] oncology Dr. Xavi Gramajo as outpatient Needs follow-up with oncology on discharge Other chronic conditions: H/O Aortic stenosis H/O dementia--no acute issues. Reorient frequently to minimize delirium. Continue Aricept, Namenda Pulmonary hypertension GERD--continue PPI H/O adrenal insufficiency--hydrocortisone on hold while on prednisone taper course. Will need to follow-up with endocrinology after completing taper course DVTheparin, monitor for hematuria Dispositionpeer to peer done for rejection after acute rehab on November 26, 2023. Patient rejected for acute rehab; family appeal in progress. I discussed plan of care with patient and patient's (over the phone). All questions were answered. Updated provided Time spent evaluating patient, direct bedside care, chart review, placing orders, interpretation of diagnostic studies, discussion with consultants, patient, and family members, as well as other required patient management activities is 50 minutes Please note the above document was generated using voice recognition software. It may contain grammatical, syntax or spelling errors. Any formal questions or concerns about the content, text or information contained within the body of this dictation should be directly addressed to the provider for clarification Admission and Anticipated Discharge Date Admission Date: November 24, 2023 Subjective Patient seen and examined at bedside. He is lying in the bed comfortably; not in distress. He reports improvement in his strength today. He has not been out of the bed today. We discussed about getting out of the bed for lunch. We also discussed doing exercises while he is on the bed. Review of Systems Review of Systems: All systems reviewed & are unremarkable except as noted in Subjective Physical Exam Physical Exam: Physical Exam: Vitals signs as noted above General Appearance:Moderately built and nourished, no apparent distress Respiratory/Chest: Normal breath sounds, CTA, No accessory muscle use Cardiovascular: S1, S2, + murmur Abdomen/GI:Soft, Non tender, Bowel sounds present Extremities/Musculoskeletal:normal inspection, RLE edema with venous stasis, LLE trace edema Neurologic/Psych:AAOx2, grossly no focal neurological deficits Skin: normal color, warm Results & Data Results & Data Vital Signs (Past 12 Hours) Vital Signs Temp Pulse Pulse Resp BP Pulse Ox O2 Del Method 11/27/23 08:04 36.5 C 77 18 128/82 94 Room Air 11/27/23 07:35 70 11/27/23 03:00 36.7 C 73 18 148/83 H 95 Room Air 11/27/23 00:00 36.7 C 65 18 129/75 97 Room Air (4) Myocarditis Myocarditis type: unspecified Chronicity: chronic Qualified Code(s): I51.4 - Myocarditis, unspecified
[2023-11-28 08:22] LABS: BUN Creatinine Ratio 16.7 (10-20); Calcium 8.6 mg/dl (8.6-10.3); Est GFR (African American) 71.5 ml/min; Est GFR (Non-African American) 61.7 ml/min; Potassium 3.8 mmol/L (3.5-5.1)
[2023-11-28 08:41] LABS: Basophils # (auto) 0.02 K/uL (0.00-0.20); Basophils % (auto) 0.2 %; Eosinophils # (auto) 0.02 K/uL (0.00-0.50); Eosinophils % (auto) 0.2 %; Hematocrit (blood only) 37.8 % (42.0-52.0); Hemoglobin 12.6 g/dl (14.0-18.0); Immature Granulocytes # (auto) 0.25 K/uL (0.01-0.20); Lymphocytes # (auto) 2.44 K/uL (1.20-3.40); Lymphocytes % (auto) 29.2 %; Mean Corpuscular Hemoglobin 30.6 pg (25.0-34.0); Mean Corpuscular Hgb Conc 33.3 g/dL (32.0-36.0); Mean Corpuscular Volume 91.7 fL (80.0-100.0); Mean Platelet Volume 8.9 fL (9.4-12.4); Monocytes # (auto) 0.47 K/uL (0.11-0.59); Monocytes % (auto) 5.6 %; Neutrophils # (auto) 5.16 K/uL (1.40-6.50); Neutrophils % (auto) 61.8 %; Nucleated RBC # (auto) 0.04 K/uL (0.00-0.12); Nucleated RBC % (auto) 0.5 %; Platelet Count 185 K/uL (130-400); RDW Coefficient of Variation 17.7 % (11.5-14.5); RDW Standard Deviation 59.4 fL (36.4-46.3); Red Blood Count 4.12 M/uL (4.70-6.10); White Blood Count 8.36 K/ul (4.8-10.8)
--- NOTE | 2023-11-28 11:48 | Hospitalist Progress Note ---
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 He was hospitalized from October 10 to October 19, 2022 with shortness of breath. Was started on midodrine at that time for orthostatic hypotension. Discharged to rehab. He was home for the last 2 weeks; had 2 falls. Last fall was a day before presentation to the hospital. Urine tract infection Orthostatic hypotension/ambulatory dysfunction Acute kidney injury, resolved Patient presents with presyncope and falls History of orthostatic hypotension on midodrine No leukocytosis Creatinine increased to 1.4 on admission; down trended Urinalysis suggestive of infection Urine culture growing Enterococcus faecalis Chest x-ray personally reviewed; no acute finding Head CTno acute finding Continue on ampicillin; Plan to treat for 7 days Orthostatic vitals every shift Midodrine increased to 5 mg 3 times a day as he continues to have orthostatic hy potension. 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 As per his oncologist note ; plan to taper down 10 mg every week Patient cannot be completed taper off the steroid due to history of adrenal insufficiency. On Bactrim for PJP prophylaxis H/O DVT/PE S/P IVC filter H/O right lower extremity DVT--chronic Carcinoma of the bladder/Prostate H/O recurrent hematuria in the past Received Keytruda Follows with [facility] oncology Dr. Xavi Gramajo as outpatient Needs follow-up with oncology on discharge Other chronic conditions: H/O Aortic stenosis H/O dementia--no acute issues. Reorient frequently to minimize delirium. Continue Aricept, Namenda Pulmonary hypertension GERD--continue PPI H/O adrenal insufficiency--hydrocortisone on hold while on prednisone taper course. Will need to follow-up with endocrinology after completing taper course DVTheparin, monitor for hematuria Dispositionpeer to peer done for rejection after acute rehab on November 26, 2023. Patient rejected for acute rehab; family appeal in progress. I discussed plan of care with patient and patient's (over the phone) on November 27, 2023. All questions were answered. Updated provided Time spent evaluating patient, direct bedside care, chart review, placing orders, interpretation of diagnostic studies, discussion with consultants, patient, and family members, as well as other required patient management activities is 50 minutes Please note the above document was generated using voice recognition software. It may contain grammatical, syntax or spelling errors. Any formal questions or concerns about the content, text or information contained within the body of this dictation should be directly addressed to the provider for clarification Admission and Anticipated Discharge Date Admission Date: November 24, 2023 Subjective Patient seen and examined at bedside. He reports that he is feeling much better. He sat up on the chair for several hours yesterday He is exercising his legs in the bed. Review of Systems Review of Systems: All systems reviewed & are unremarkable except as noted in Subjective Physical Exam Physical Exam: Physical Exam: Vitals signs as noted above General Appearance:Moderately built and nourished, no apparent distress Respiratory/Chest: Normal breath sounds, CTA, No accessory muscle use Cardiovascular: S1, S2, + murmur Abdomen/GI:Soft, Non tender, Bowel sounds present Extremities/Musculoskeletal:normal inspection, RLE edema with venous stasis, LLE trace edema Neurologic/Psych:AAOx2, grossly no focal neurological deficits Skin: normal color, warm Results & Data Results & Data Vital Signs (Past 12 Hours) Vital Signs Temp Pulse Pulse Resp BP Pulse Ox O2 Del Method 11/28/23 11:30 36.6 C 72 18 144/76 H 95 Room Air 11/28/23 08:00 63 11/28/23 07:44 36.6 C 67 18 163/88 H 94 Room Air 11/28/23 04:00 36.5 C 64 18 150/89 H 96 Room Air (4) Myocarditis Myocarditis type: unspecified Chronicity: chronic Qualified Code(s): I51.4 - Myocarditis, unspecified
--- NOTE | 2023-11-29 14:26 | Hospitalist Progress Note ---
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 He was hospitalized from October 10 to October 19, 2022 with shortness of breath. Was started on midodrine at that time for orthostatic hypotension. Discharged to rehab. He was home for the last 2 weeks; had 2 falls. Last fall was a day before presentation to the hospital. Urine tract infection Orthostatic hypotension/ambulatory dysfunction Acute kidney injury, resolved Patient presents with presyncope and falls History of orthostatic hypotension on midodrine No leukocytosis Creatinine increased to 1.4 on admission; down trended Urinalysis suggestive of infection Urine culture growing Enterococcus faecalis Chest x-ray personally reviewed; no acute finding Head CTno acute finding Continue on ampicillin; Plan to treat for 7 days Orthostatic vitals every shift Midodrine increased to 5 mg 3 times a day as he continues to have orthostatic hy potension. 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 As per his oncologist note ; plan to taper down 10 mg every week. however, Patient cannot be completed taper off the steroid due to history of adrenal insufficiency. On Bactrim for PJP prophylaxis Will continue on prednisone 20 mg once a day for the time being. He will need follow-up with endocrinology as outpatient for further tapering as he has history of adrenal insufficiency. H/O DVT/PE S/P IVC filter H/O right lower extremity DVT--chronic Carcinoma of the bladder/Prostate H/O recurrent hematuria in the past Received Keytruda Follows with [facility] oncology Dr. Xavi Gramajo as outpatient Needs follow-up with oncology on discharge Other chronic conditions: H/O Aortic stenosis H/O dementia--no acute issues. Reorient frequently to minimize delirium. Continue Aricept, Namenda Pulmonary hypertension GERD--continue PPI H/O adrenal insufficiency--hydrocortisone on hold while on prednisone taper course. Need to follow-up with endocrinology for further tapering. DVTheparin, monitor for hematuria Dispositionpeer to peer done for rejection after acute rehab on November 26, 2023. Patient rejected for acute rehab; family appeal in progress. Please note the above document was generated using voice recognition software. It may contain grammatical, syntax or spelling errors. Any formal questions or concerns about the content, text or information contained within the body of this dictation should be directly addressed to the provider for clarification Admission and Anticipated Discharge Date Admission Date: November 24, 2023 Subjective Patient seen and examined at bedside. Comfortable; not in distress. Denies fever, chills, chest pain, shortness of breath, abdominal pain or urinary symptoms. No significant overnight events Patient reports that he has been getting out of the bed and sitting on the chair as much as possible. Review of Systems Review of Systems: All systems reviewed & are unremarkable except as noted in Subjective Physical Exam Physical Exam: Physical Exam: Vitals signs as noted above General Appearance:Moderately built and nourished, no apparent distress Respiratory/Chest: Normal breath sounds, CTA, No accessory muscle use Cardiovascular: S1, S2, + murmur Abdomen/GI:Soft, Non tender, Bowel sounds present Extremities/Musculoskeletal:normal inspection, RLE edema with venous stasis, LLE trace edema Neurologic/Psych:AAOx2, grossly no focal neurological deficits Skin: normal color, warm Results & Data Results & Data Vital Signs (Past 12 Hours) Vital Signs Temp Pulse Pulse Resp BP Pulse Ox O2 Del Method 11/29/23 11:10 36.8 C 85 17 132/81 95 Room Air 11/29/23 07:55 36.3 C L 81 16 152/84 H 94 Room Air 11/29/23 07:21 73 11/29/23 03:40 36.8 C 72 20 176/88 H 96 Room Air (4) Myocarditis Myocarditis type: unspecified Chronicity: chronic Qualified Code(s): I51.4 - Myocarditis, unspecified
[2023-11-30 06:53] LABS: Basophils # (auto) 0.02 K/uL (0.00-0.20); Basophils % (auto) 0.2 %; Eosinophils # (auto) 0.01 K/uL (0.00-0.50); Eosinophils % (auto) 0.1 %; Hematocrit (blood only) 41.6 % (42.0-52.0); Hemoglobin 13.3 g/dl (14.0-18.0); Immature Granulocytes % (auto) 2.1 %; Lymphocytes # (auto) 2.59 K/uL (1.20-3.40); Lymphocytes % (auto) 27.7 %; Mean Corpuscular Hemoglobin 30.4 pg (25.0-34.0); Mean Corpuscular Volume 95.2 fL (80.0-100.0); Mean Platelet Volume 8.7 fL (9.4-12.4); Monocytes # (auto) 0.51 K/uL (0.11-0.59); Monocytes % (auto) 5.5 %; Neutrophils # (auto) 6.02 K/uL (1.40-6.50); Neutrophils % (auto) 64.4 %; Nucleated RBC # (auto) 0.04 K/uL (0.00-0.12); Nucleated RBC % (auto) 0.4 %; Platelet Count 204 K/uL (130-400); RDW Coefficient of Variation 18.4 % (11.5-14.5); Red Blood Count 4.37 M/uL (4.70-6.10); White Blood Count 9.35 K/ul (4.8-10.8)
[2023-11-30 07:23] LABS: BUN Creatinine Ratio 15.2 (10-20); Creatinine Clr Calc Pharmacy 60.7 ml/min; Est GFR (Non-African American) 55.2 ml/min; Potassium 3.8 mmol/L (3.5-5.1)
--- NOTE | 2023-11-30 10:53 | Hospitalist Progress Note ---
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 He was hospitalized from October 10 to October 19, 2022 with shortness of breath. Was started on midodrine at that time for orthostatic hypotension. Discharged to rehab. He was home for the last 2 weeks; had 2 falls. Last fall was a day before presentation to the hospital. Urine tract infection Orthostatic hypotension/ambulatory dysfunction Acute kidney injury, resolved Patient presents with presyncope and falls History of orthostatic hypotension on midodrine No leukocytosis Creatinine increased to 1.4 on admission; down trended Urinalysis suggestive of infection Urine culture growing Enterococcus faecalis Chest x-ray personally reviewed; no acute finding Head CTno acute finding Continue on ampicillin; Plan to treat for 7 days Orthostatic vitals every shift Midodrine increased to 5 mg 3 times a day as he continues to have orthostatic hy potension. Doing better on 5 mg 3 times a day. If continues to be hypotensive; will increase it to 7.5 mg 3 times a day. 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 As per his oncologist note ; plan to taper down 10 mg every week. however, Patient cannot be completed taper off the steroid due to history of adrenal insufficiency. On Bactrim for PJP prophylaxis Will continue on prednisone 20 mg once a day for the time being. He will need follow-up with endocrinology as outpatient for further tapering as he has history of adrenal insufficiency. H/O DVT/PE S/P IVC filter H/O right lower extremity DVT--chronic Carcinoma of the bladder/Prostate H/O recurrent hematuria in the past Received Keytruda Follows with [facility] oncology Dr. Xavi Gramajo as outpatient Needs follow-up with oncology on discharge Other chronic conditions: H/O Aortic stenosis H/O dementia--no acute issues. Reorient frequently to minimize delirium. Continue Aricept, Namenda Pulmonary hypertension GERD--continue PPI H/O adrenal insufficiency--hydrocortisone on hold while on prednisone taper course. Need to follow-up with endocrinology for further tapering. DVTheparin, monitor for hematuria Called patient's over the phone on November 28November 29; unable to reach. Dispositionpeer to peer done for rejection after acute rehab on November 26, 2023. Patient rejected for acute rehab; family appeal in progress. Please note the above document was generated using voice recognition software. It may contain grammatical, syntax or spelling errors. Any formal questions or concerns about the content, text or information contained within the body of this dictation should be directly addressed to the provider for clarification Admission and Anticipated Discharge Date Admission Date: November 24, 2023 Subjective Patient seen and examined at bedside. He is comfortable lying on the bed symptoms not in distress. Encouraged patient to get out of bed to sit in the chair with the help of the nurses. Also encouraged him to participate in PT OT Review of Systems Review of Systems: All systems reviewed & are unremarkable except as noted in Subjective Physical Exam Physical Exam: Physical Exam: Vitals signs as noted above General Appearance:Moderately built and nourished, no apparent distress Respiratory/Chest: Normal breath sounds, CTA, No accessory muscle use Cardiovascular: S1, S2, + murmur Abdomen/GI:Soft, Non tender, Bowel sounds present Extremities/Musculoskeletal:normal inspection, RLE edema with venous stasis, LLE trace edema Neurologic/Psych:AAOx2, grossly no focal neurological deficits Skin: normal color, warm Results & Data Results & Data Vital Signs (Past 12 Hours) Vital Signs Temp Pulse Pulse Resp BP Pulse Ox O2 Del Method 11/30/23 07:37 36.4 C L 73 18 146/86 H 95 Room Air 11/30/23 07:30 Room Air 11/30/23 07:00 77 11/30/23 03:47 37.1 C 74 20 146/77 H 96 Room Air 11/29/23 23:54 36.6 C 79 18 144/80 H 95 Room Air 11/29/23 23:16 75 (4) Myocarditis Myocarditis type: unspecified Chronicity: chronic Qualified Code(s): I51.4 - Myocarditis, unspecified
[2023-11-30] MEDS: MIDODRINE HCL 2.5 MG TAB PO SCH (12:16)
[2023-12-01 07:56] LABS: Basophils # (auto) 0.01 K/uL (0.00-0.20); Basophils % (auto) 0.1 %; Eosinophils # (auto) 0.01 K/uL (0.00-0.50); Eosinophils % (auto) 0.1 %; Hematocrit (blood only) 39.4 % (42.0-52.0); Immature Granulocytes # (auto) 0.16 K/uL (0.01-0.20); Lymphocytes # (auto) 2.36 K/uL (1.20-3.40); Lymphocytes % (auto) 29.5 %; Mean Corpuscular Hemoglobin 30.6 pg (25.0-34.0); Mean Corpuscular Volume 92.7 fL (80.0-100.0); Mean Platelet Volume 8.8 fL (9.4-12.4); Monocytes # (auto) 0.51 K/uL (0.11-0.59); Monocytes % (auto) 6.4 %; Neutrophils # (auto) 4.94 K/uL (1.40-6.50); Neutrophils % (auto) 61.9 %; Nucleated RBC # (auto) 0.02 K/uL (0.00-0.12); Nucleated RBC % (auto) 0.3 %; Platelet Count 201 K/uL (130-400); RDW Coefficient of Variation 18.6 % (11.5-14.5); RDW Standard Deviation 62.3 fL (36.4-46.3); Red Blood Count 4.25 M/uL (4.70-6.10); White Blood Count 7.99 K/ul (4.8-10.8)
[2023-12-01 08:07] LABS: BUN Creatinine Ratio 14.9 (10-20); Creatinine Clr Calc Pharmacy 56.6 ml/min; Est GFR (African American) 58.8 ml/min; Est GFR (Non-African American) 50.7 ml/min; Potassium 4.1 mmol/L (3.5-5.1)
--- NOTE | 2023-12-01 10:13 | Nephrology Consultation ---
Date of Consultation December 01, 2023 Assessment & Plan (1) Orthostatic hypotension: (2) Fall: (3) Ambulatory dysfunction: (4) Generalized weakness: Plan He has gen Deconditioning, orthostatic drop in BP. Unfortunately the longer you stay bedbound the worse this problems gets. As for orthostatic Hypotension he is already on Midodrine 7.5 tid. max dose is 10 tid. Can try that. other option is thigh high compression stocking--I just ordered that. But will be difficult to do this outpt at home as he and his may not have the strength to do this. Check orthostatic Vitals q shift. Florinef can be used but difficult as it causes---Hypokalemia, Salt/eater retention. he already has issue with edema so will defer this. History of Present Illness Reason for Consultation: Orthostatic Hypotension Attending Physician: Issa Dickerson MD History of Present Illness 78/M who was admitted 1 week ago. Admitted with generalized weakness and fall. he was recently admitted to [facility] 10/10 through 10/19 for bronchitis and generalized deconditioning. Patient discharged to [facility] for rehab. He returned home on 11/03. Patient reports a progressive decline since returning home. He has had 2 falls. Home health has been involved and recently concerned about patient's ability to remain at home. Denies fevers and chills. No chest pain or shortness of breath. Denies lightheadedness, dizziness, diaphoresis, syncopal events. No urinary symptoms. UA suggest possible UTI. he has got ivf and Also Abx. ROS--See HPI. unless stated 12 Systems reviewed and negative exam: Vitals signs as noted above General Appearance:Moderately built and nourished, no apparent distress. Normal Speech but does repeat questions Respiratory/Chest: Normal breath sounds, CTA, No accessory muscle use Cardiovascular: S1, S2, + murmur Abdomen/GI:Soft, Non tender, Bowel sounds present Extremities/Musculoskeletal:normal inspection, RLE edema with venous stasis, LLE trace edema Neurologic/Psych:AAOx2, grossly no focal neurological deficits Skin: normal color, warm Allergies Allergy/AdvReac Type Severity Reaction Status Date / Time Iodinated Contrast Media Allergy Severe LOVERSOL---CARDIAC Verified 11/23/23 21:[address] CONTRAST clindamycin Allergy Intermediate Rash Verified 11/23/23 21:07 chocolate flavor AdvReac Severe DIARRHEA/ Verified 11/23/23 21:07 Cannot take, interacts w/ medications. cranberry AdvReac Severe Cannot Verified 11/23/23 21:07 take, interacts w/ medications. pembrolizumab [From [facility]] AdvReac Intermediate myocarditis Verified 11/23/23 21:07 Home Medications Medication Instructions Recorded Confirmed Type donepezil 10 mg tablet 10 mg PO QAM 04/13/22 11/23/23 History ascorbic acid (vitamin C) 1,000 mg 1,000 mg PO QAM 08/27/22 11/23/23 History tablet (Vitamin C) epinephrine 0.3 mg/0.3 mL 0.3 mg IM DIRECTED PRN 11/30/22 11/23/23 History injection, auto-injector anaphylaxis montelukast 10 mg tablet 10 mg PO DAILY 11/30/22 11/23/23 History fluticasone fur. 200 mcg-umeclid 1 inh inhalation QPM 12/12/22 11/23/23 History 62.5 mcg-vilant 25 mcg inhalat.powder (Trelegy Ellipta) fluticasone propionate 50 2 spray intranasal DAILY 12/12/22 11/23/23 History mcg/actuation nasal spray,suspension ferrous sulfate 325 mg (65 mg 325 mg PO DAILY 04/07/23 11/23/23 History iron) tablet,delayed release acetaminophen 325 mg tablet 650 mg PO Q4H PRN PAIN/FEVER 10/09/23 11/23/23 History (Tylenol) multivitamin with minerals-folic 1 tab PO DAILY 10/09/23 11/23/23 History acid 200 mcg chewable tablet (Multivitamin Gummies) omeprazole 20 mg capsule,delayed 20 mg PO QAM 10/09/23 11/23/23 History release sennosides 8.6 mg-docusate sodium 1 tab-cap PO DAILY PRN Constipation 10/09/23 11/23/23 History 50 mg tablet (Senna Plus) buspirone 5 mg tablet 5 mg PO TID 11/17/23 11/23/23 History midodrine 5 mg tablet 2.5 mg PO TID 11/17/23 11/23/23 History prednisone 20 mg tablet 30 mg PO .daily ud 11/17/23 11/23/23 History albuterol sulfate 90 mcg/actuation 2 puff inhalation Q6 PRN Shortness 11/23/23 11/23/23 History aerosol inhaler Of Breath Or Wheezing cholecalciferol (vitamin D3) 125 125 mcg PO DAILY 11/23/23 11/23/23 History mcg (5,000 unit) tablet memantine 10 mg tablet 10 mg PO BIDM 11/23/23 11/23/23 History sulfamethoxazole 800 1 tab PO 3XWK 11/23/23 11/23/23 History mg-trimethoprim 160 mg tablet vitamin B complex 1 tab PO DAILY 11/23/23 11/23/23 History Patient History Medical History (Updated 11/23/23 @ 22:01 by JOSÉ ANTONIO Elam) History of recent blood transfusion Bladder cancer Weakness Mild cognitive impairment, so stated Anemia (06/25/23)to start receiving iron infusions Radiation cystitis Kidney stones x1 episode. no surgery needed. Hx of prostatic malignancy ~ 2013- s/p Lupron and XRT [place]'s disease follows with Endocrinology [facility] on hydrocortisone Chronic steroid use Sleep apnea Cpap Cardiac arrest hx r/t IV Contrast Dye "many years ago" History of pulmonary embolism hx "many years ago" unknown etiology History of DVT (deep vein thrombosis) hx "many years ago" unknown etiology acute on chronic DVT during 12/2022 [facility] admission- Coumadin d/c'ed due to anemia and hematuria; IVC filter placed 12/28/22 Stage 3 chronic kidney disease Ascending aorta dilation Mild- 4.4cm per 11/2022 ECHO Aortic stenosis Mild per 12/2022 ECHO -follows annually with cardiology Adrenal insufficiency Allergic rhinitis Asthma (10/03/11) well controlled. Benign prostatic hyperplasia Contrast media allergy Venous insufficiency (chronic) (peripheral) Hiatal hernia COPD (chronic obstructive pulmonary disease) well controlled. uses Breo daily with exercise Surgical History S/P IVC filter S/P cataract extraction History of right cataract extraction History of colonoscopy H/O sinus surgery History of appendectomy S/P TURP (status post transurethral resection of prostate) Status post cystoscopy (11/07/13) Family History Father Prostate cancer Brother Prostate cancer Mother Thyroid cancer Cancer Other No family history of adverse response to anesthesia Social History Smoking Status: Never smoker Tobacco Type: Cigarettes Second Hand Exposure: No; Do You Dip or Chew Tobacco: No; Hx Alcohol Use: Yes Alcohol type: beer and wine Alcohol Intake Frequency: Monthly or Less Hx Substance Use: No Preferred Language: Sudanese Communication Ability: Effective Visual Impairment: Limited Hearing Ability: Normal Canal Boat 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 Required: No Beliefs That Will Affect Care: None marital status: Current Living Situation: Spouse Current Living Situation Comment: at home with current occupational status: retired How many Children do You have: 0 Other Information That Helps Us Care for You: No Feels Safe at Home: Yes Safety Concerns: Feels Safe At This Time Diet: regular during the past year weight has: decreased > 10 lbs Seatbelt Use: always Do you think of yourself as: straight/heterosexual Gender Identity: Male Assistive Devices: Bedside Commode, Hospital Bed and Walker Results & Data Vital Signs (Past 12 Hours) Vital Signs Temp Pulse Pulse Resp BP Pulse Ox O2 Del Method 12/01/23 07:39 Room Air 12/01/23 07:32 36.7 C 80 12 128/76 93 Room Air 12/01/23 07:30 36.7 C 80 12 128/76 93 Room Air 12/01/23 07:04 77 12/01/23 03:05 36.5 C 79 20 144/80 H 94 Room Air 11/30/23 23:44 36.5 C 78 20 142/79 H 96 Room Air 11/30/23 23:36 73 (2) Fall Encounter type: initial encounter Qualified Code(s): W19.XXXA - Unspecified fall, initial encounter
[2023-12-01] MEDS: MIDODRINE HCL 10 MG TAB PO SCH (12:04)
--- NOTE | 2023-12-01 17:07 | Hospitalist Progress Note ---
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 He was hospitalized from October 10 to October 19, 2022 with shortness of breath. Was started on midodrine at that time for orthostatic hypotension. Discharged to rehab. He was home for the last 2 weeks; had 2 falls. Last fall was a day before presentation to the hospital. Urine tract infection Orthostatic hypotension/ambulatory dysfunction Acute kidney injury, resolved Patient presents with presyncope and falls History of orthostatic hypotension on midodrine No leukocytosis Creatinine increased to 1.4 on admission; down trended Urinalysis suggestive of infection Urine culture growing Enterococcus faecalis Chest x-ray personally reviewed; no acute finding Head CTno acute finding Continue on ampicillin; Plan to treat for 7 days, will complete course today. Orthostatic vitals every shift Home midodrine at 2.5 mg 3 times daily, has been increased to 10 mg 3 times daily gradually while in hospital. Nephrology on board for orthostatic hypotension, appreciate recommendation. Continue compression stockings. 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 As per his oncologist note ; plan to taper down 10 mg every week. however, Patient cannot be completed taper off the steroid due to history of adrenal insufficiency. On Bactrim for PJP prophylaxis Will continue on prednisone 20 mg once a day for the time being. He will need follow-up with endocrinology as outpatient for further tapering as he has hist ory of adrenal insufficiency. H/O DVT/PE S/P IVC filter H/O right lower extremity DVT--chronic Carcinoma of the bladder/Prostate H/O recurrent hematuria in the past Received Keytruda Follows with [facility] oncology Dr. Xavi Gramajo as outpatient Needs follow-up with oncology on discharge Other chronic conditions: H/O Aortic stenosis H/O dementia--no acute issues. Reorient frequently to minimize delirium. Continue Aricept, Namenda Pulmonary hypertension GERD--continue PPI H/O adrenal insufficiency--hydrocortisone on hold while on prednisone taper course. Need to follow-up with endocrinology for further tapering. DVTheparin, monitor for hematuria Dispositionpeer to peer done for rejection after acute rehab on November 26, 2023. Patient rejected for acute rehab; family appeal in progress. Please note the above document was generated using voice recognition software. It may contain grammatical, syntax or spelling errors. Any formal questions or concerns about the content, text or information contained within the body of this dictation should be directly addressed to the provider for clarification Admission and Anticipated Discharge Date Admission Date: November 24, 2023 Subjective Patient seen and examined at bedside. He is comfortable lying on the bed, not in distress. Worked with PT and OT yesterday. Reports eating okay. Denies pain. Encouraged patient to get out of bed to sit in the chair with the help of the nurses. Also encouraged him to participate in PT OT Physical Exam Physical Exam: General Appearance:Moderately built and nourished, no apparent distress Respiratory/Chest: Normal breath sounds, CTA, No accessory muscle use Cardiovascular: S1, S2, + murmur Abdomen/GI:Soft, Non tender, Bowel sounds present Extremities/Musculoskeletal:normal inspection, RLE edema with venous stasis, LLE trace edema Neurologic/Psych:AAOx2, grossly no focal neurological deficits Skin: normal color, warm Results & Data Results & Data Vital Signs (Past 12 Hours) Vital Signs Temp Pulse Pulse Resp BP Pulse Ox O2 Del Method 12/01/23 15:37 106 H 12/01/23 15:07 36.7 C 73 18 147/85 H 94 Room Air 12/01/23 11:01 36.5 C 83 13 95 Room Air 12/01/23 07:39 Room Air 12/01/23 07:32 36.7 C 80 12 128/76 93 Room Air 12/01/23 07:30 36.7 C 80 12 128/76 93 Room Air 12/01/23 07:04 77 (4) Myocarditis Myocarditis type: unspecified Chronicity: chronic Qualified Code(s): I51.4 - Myocarditis, unspecified
--- NOTE | 2023-12-02 13:41 | Urology Consultation ---
Date of Consultation December 02, 2023 Assessment & Plan (1) Acute UTI (urinary tract infection): (2) Primary bladder malignant neoplasm: (3) Prostate cancer: (4) Incontinence: Plan Devlin catheter in place due to patient being incontinent with healing sacral ulcers. I had a discussion with the patient and his . I do not think having the catheter puts him at any additional risk from the bladder cancer. There is a chance that the catheter could irritate the bladder and stir up some hematuria, but that does not seem to be happening at the moment. Per the last note from his outside urologist, there is no evidence of disease on a cystoscopy performed on 10/29/2023. He is not thought to be a good candidate for intravesical therapy and he is a high risk surgical candidate. Would recommend the following: Maintain Devlin catheter placement to help with ulcer healing Once his ulcers began to heal, could consider voiding trial or learning CIC to help manage his bladder. Urology will sign out for now, please call with any questions or concerns. History of Present Illness Attending Physician: Issa Dickerson MD History of Present Illness 78-year-old male with history of bladder cancer (s/p surgery, now off Keytruda secondary to myocarditis, established with urology and oncology at [facility]), prostate cancer (s/p radiation) and multiple medical comorbidities. He presented to the ED on 11/23/2023 with dizziness and two falls since his last hospitalization. Urinalysis at that time was suggestive of an infection, culture grew Enterococcus facialis and he has been treated with ampicillin. He also was noted to have a stage II sacral posterior ulcer. He has had ongoing urinary incontinence which leaks down back to the ulcer has made wound care challenging. A Devlin catheter was placed to collect the urine, but the patient and his were told that the catheter may put him at risk for seeding or spreading his bladder cancer. Urology was consulted for additional evaluation. At the bedside, he is resting comfortably. Catheter has been in place overnight without any issues or hematuria. He has had longstanding, ongoing urinary incontinence. Recently it has been bad enough that even with dressings it has not been controlled. Condom catheter was attempted but was unsuccessful. Labs reviewed: 12/01/2023: WBC 7.99, hemoglobin 13 12/01/2023: Creatinine 1.34 No recent coaxial imaging of the abdomen and pelvis for review Allergies Allergy/AdvReac Type Severity Reaction Status Date / Time Iodinated Contrast Media Allergy Severe LOVERSOL---CARDIAC Verified 11/23/23 21:[address] CONTRAST clindamycin Allergy Intermediate Rash Verified 11/23/23 21:07 chocolate flavor AdvReac Severe DIARRHEA/ Verified 11/23/23 21:07 Cannot take, interacts w/ medications. cranberry AdvReac Severe Cannot Verified 11/23/23 21:07 take, interacts w/ medications. pembrolizumab [From [facility] [employer]] AdvReac Intermediate myocarditis Verified 11/23/23 21:07 Home Medications Medication Instructions Recorded Confirmed Type donepezil 10 mg tablet 10 mg PO QAM 04/13/22 11/23/23 History ascorbic acid (vitamin C) 1,000 mg 1,000 mg PO QAM 08/27/22 11/23/23 History tablet (Vitamin C) epinephrine 0.3 mg/0.3 mL 0.3 mg IM DIRECTED PRN 11/30/22 11/23/23 History injection, auto-injector anaphylaxis montelukast 10 mg tablet 10 mg PO DAILY 11/30/22 11/23/23 History fluticasone fur. 200 mcg-umeclid 1 inh inhalation QPM 12/12/22 11/23/23 History 62.5 mcg-vilant 25 mcg inhalat.powder (Trelegy Ellipta) fluticasone propionate 50 2 spray intranasal DAILY 12/12/22 11/23/23 History mcg/actuation nasal spray,suspension ferrous sulfate 325 mg (65 mg 325 mg PO DAILY 04/07/23 11/23/23 History iron) tablet,delayed release acetaminophen 325 mg tablet 650 mg PO Q4H PRN PAIN/FEVER 10/09/23 11/23/23 History (Tylenol) multivitamin with minerals-folic 1 tab PO DAILY 10/09/23 11/23/23 History acid 200 mcg chewable tablet (Multivitamin Gummies) omeprazole 20 mg capsule,delayed 20 mg PO QAM 10/09/23 11/23/23 History release sennosides 8.6 mg-docusate sodium 1 tab-cap PO DAILY PRN Constipation 10/09/23 11/23/23 History 50 mg tablet (Senna Plus) buspirone 5 mg tablet 5 mg PO TID 11/17/23 11/23/23 History midodrine 5 mg tablet 2.5 mg PO TID 11/17/23 11/23/23 History prednisone 20 mg tablet 30 mg PO .daily ud 11/17/23 11/23/23 History albuterol sulfate 90 mcg/actuation 2 puff inhalation Q6 PRN Shortness 11/23/23 11/23/23 History aerosol inhaler Of Breath Or Wheezing cholecalciferol (vitamin D3) 125 125 mcg PO DAILY 11/23/23 11/23/23 History mcg (5,000 unit) tablet memantine 10 mg tablet 10 mg PO BIDM 11/23/23 11/23/23 History sulfamethoxazole 800 1 tab PO 3XWK 11/23/23 11/23/23 History mg-trimethoprim 160 mg tablet vitamin B complex 1 tab PO DAILY 11/23/23 11/23/23 History Patient History Medical History (Updated 12/02/23 @ 14:34 by JOSÉ ANTONIO Pop) History of recent blood transfusion Bladder cancer Weakness Mild cognitive impairment, so stated Anemia (06/25/23)to start receiving iron infusions Radiation cystitis Kidney stones x1 episode. no surgery needed. Hx of prostatic malignancy ~ 2013- s/p Lupron and XRT [place]'s disease follows with Endocrinology [facility] on hydrocortisone Chronic steroid use Sleep apnea Cpap Cardiac arrest hx r/t IV Contrast Dye "many years ago" History of pulmonary embolism hx "many years ago" unknown etiology History of DVT (deep vein thrombosis) hx "many years ago" unknown etiology acute on chronic DVT during 12/2022 [facility] admission- Coumadin d/c'ed due to anemia and hematuria; IVC filter placed 12/28/22 Stage 3 chronic kidney disease Ascending aorta dilation Mild- 4.4cm per 11/2022 ECHO Aortic stenosis Mild per 12/2022 ECHO -follows annually with cardiology Adrenal insufficiency Allergic rhinitis Asthma (10/03/11) well controlled. Benign prostatic hyperplasia Contrast media allergy Venous insufficiency (chronic) (peripheral) Hiatal hernia COPD (chronic obstructive pulmonary disease) well controlled. uses Breo daily with exercise Surgical History S/P IVC filter S/P cataract extraction History of right cataract extraction History of colonoscopy H/O sinus surgery History of appendectomy S/P TURP (status post transurethral resection of prostate) Status post cystoscopy (11/07/13) Family History Father Prostate cancer Brother Prostate cancer Mother Thyroid cancer Cancer Other No family history of adverse response to anesthesia Social History Smoking Status: Never smoker Tobacco Type: Cigarettes Second Hand Exposure: No; Do You Dip or Chew Tobacco: No; Hx Alcohol Use: Yes Alcohol type: beer and wine Alcohol Intake Frequency: Monthly or Less Hx Substance Use: No Preferred Language: Cymro Communication Ability: Effective Visual Impairment: Limited Hearing Ability: Normal Collection Correspondent Required: No Beliefs That Will Affect Care: None marital status: Current Living Situation: Spouse Current Living Situation Comment: at home with current occupational status: retired How many Children do You have: 0 Other Information That Helps Us Care for You: No Feels Safe at Home: Yes Safety Concerns: Feels Safe At This Time Diet: regular during the past year weight has: decreased > 10 lbs Seatbelt Use: always Do you think of yourself as: straight/heterosexual Gender Identity: Male Assistive Devices: Bedside Commode, Hospital Bed and Walker Review of Systems Review of Systems: 12 point review of systems negative exce pt for otherwise indicated. Physical Exam Constitutional: well developed and well nourished; no acute distress Eyes: + anicteric sclerae; pupils not irregula r Respiratory: normal respiratory effort; no respiratory distress, does not use accessory muscles and normal respiratory pattern Cardiovascular: well perfused Gastrointestinal (Abdomen): Inspection/Auscultation: abdomen normal to inspection Musculoskeletal: Extremities: extremities normal to inspection Skin: no rashes, warm and dry normal turgor Neurologic: moves all extremities and awake Speech / Cognition: normal speech Psychiatric: Orientation: alert and oriented x 3 Eye Contact: good eye contact Genitourinary: Catheter intact and draining clear yellow Results & Data Vital Signs (Past 12 Hours) Vital Signs Temp Pulse Pulse Resp BP Pulse Ox O2 Del Method 12/02/23 11:31 36.5 C 67 14 152/84 H 93 Room Air 12/02/23 07:28 36.7 C 82 14 134/79 94 Room Air 04/18/24 07:22 Room Air 12/02/23 07:02 72 12/02/23 04:03 36.7 C 71 18 138/83 95 Room Air 12/02/23 01:52 73 PG Care Time/CCT Total # of Minutes Spent Total Time Spent with Patient: Total time spent is greater than 50% in coordination of care (as documented) at patient's floor/unit and/or counseling patient: Coding Level of Care Code 27420 INT INP/OBS CARE 255MIN Diagnoses Acute UTI (urinary tract infection) N39.0 Primary bladder malignant neoplasm C67.9 Prostate cancer C61 Incontinence R32 Urinary Incontinence type: unspecified incontinence (4) Incontinence Urinary Incontinence type: unspecified incontinence
--- NOTE | 2023-12-02 16:30 | Hospitalist Progress Note ---
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 He was hospitalized from October 10 to October 19, 2022 with shortness of breath. Was started on midodrine at that time for orthostatic hypotension. Discharged to rehab. He was home for the last 2 weeks; had 2 falls. Last fall was a day before presentation to the hospital. Urine tract infection Orthostatic hypotension/ambulatory dysfunction Acute kidney injury, resolved Patient presents with presyncope and falls History of orthostatic hypotension on midodrine No leukocytosis Creatinine increased to 1.4 on admission; down trended Urinalysis suggestive of infection Urine culture growing Enterococcus faecalis Chest x-ray personally reviewed; no acute finding Head CTno acute finding s/p 7 days of ampicillin, completed 11/30. Orthostatic vitals every shift Home midodrine at 2.5 mg 3 times daily, has been increased to 10 mg 3 times daily gradually while in hospital. Nephrology on board for orthostatic hypotension, appreciate recommendation. Continue compression stockings. Continue PT OT evaluation Stage II sacral pressure ulcer, POA Patient has been mostly lying on the bed since his discharge from rehab Developed superficial ulceration at the sacral area Wound care on board Q2 hours transition and reposition. Air mattress. Tatum cath placed, appreciate uro eval 12/01. Encourage OOB. 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 As per his oncologist note ; plan to taper down 10 mg every week. however, Patient cannot be completed taper off the steroid due to history of adrenal insufficiency. On Bactrim for PJP prophylaxis Will continue on prednisone 20 mg once a day for the time being. He will need follow-up with endocrinology as outpatient for further tapering as he has history of adrenal insufficiency. H/O DVT/PE S/P IVC filter H/O right lower extremity DVT--chronic Carcinoma of the bladder/Prostate H/O recurrent hematuria in the past Received Keytruda Follows with [facility] oncology Dr. Xavi Gramajo as outpatient Needs follow-up with oncology on discharge Other chronic conditions: H/O Aortic stenosis H/O dementia--no acute issues. Reorient frequently to minimize delirium. Continue Aricept, Namenda Pulmonary hypertension GERD--continue PPI H/O adrenal insufficiency--hydrocortisone on hold while on prednisone taper course. Need to follow-up with endocrinology for further tapering. DVTheparin, monitor for hematuria Dispositionpeer to peer done for rejection after acute rehab on November 26, 2023. Patient rejected for acute rehab; family appeal in progress. Please note the above document was generated using voice recognition software. It may contain grammatical, syntax or spelling errors. Any formal questions or concerns about the content, text or information contained within the body of this dictation should be directly addressed to the provider for clarification Admission and Anticipated Discharge Date Admission Date: November 24, 2023 Subjective Patient seen and examined at bedside. He is comfortable lying on the bed, not in distress. Reports eating okay. Denies pain. Encouraged patient to get out of bed to sit in the chair with the help of the nurses. Also encouraged him to participate in PT OT offers no complaints pt is incontinent of urine, overnight tatum was put, is not apparently happy. Updated , urology consult was put who also had conversation w/ . Also answered all of his 's questions in detail. Physical Exam Physical Exam: General Appearance:Moderately built and nourished, no apparent distress Respiratory/Chest: Normal breath sounds, CTA, No accessory muscle use Cardiovascular: S1, S2, + murmur Abdomen/GI:Soft, Non tender, Bowel sounds present Extremities/Musculoskeletal:normal inspection, RLE edema with venous stasis, LLE trace edema Neurologic/Psych:AAOx2, grossly no focal neurological deficits Skin: normal color, warm Results & Data Results & Data Vital Signs (Past 12 Hours) Vital Signs Temp Pulse Pulse Resp BP Pulse Ox O2 Del Method 12/02/23 15:30 36.4 C L 90 18 123/82 95 Room Air 12/02/23 14:57 81 12/02/23 11:31 36.5 C 67 14 152/84 H 93 Room Air 12/02/23 07:28 36.7 C 82 14 134/79 94 Room Air 12/02/23 07:22 Room Air 12/02/23 07:02 72 (4) Myocarditis Myocarditis type: unspecified Chronicity: chronic Qualified Code(s): I51.4 - Myocarditis, unspecified
[2023-12-03 07:22] LABS: Hematocrit (blood only) 41.1 % (42.0-52.0); Hemoglobin 13.7 g/dl (14.0-18.0); Mean Corpuscular Hemoglobin 30.7 pg (25.0-34.0); Mean Corpuscular Hgb Conc 33.3 g/dL (32.0-36.0); Mean Corpuscular Volume 92.2 fL (80.0-100.0); Mean Platelet Volume 8.9 fL (9.4-12.4); Nucleated RBC # (auto) 0.06 K/uL (0.00-0.12); Nucleated RBC % (auto) 0.7 %; Platelet Count 203 K/uL (130-400); RDW Coefficient of Variation 18.5 % (11.5-14.5); RDW Standard Deviation 60.8 fL (36.4-46.3); Red Blood Count 4.46 M/uL (4.70-6.10); White Blood Count 8.22 K/ul (4.8-10.8)
[2023-12-03 07:33] LABS: Calcium 9.4 mg/dl (8.6-10.3); Creatinine Clr Calc Pharmacy 50.3 ml/min; Est GFR (African American) 56.3 ml/min; Est GFR (Non-African American) 48.5 ml/min; Potassium 4.1 mmol/L (3.5-5.1)
--- NOTE | 2023-12-03 09:57 | Nephrology Progress Note ---
Date of Service December 03, 2023 Assessment & Plan Admission and Anticipated Discharge Date Admission Date: November 24, 2023 Subjective Assessment & Plan (1) Orthostatic hypotension: (2) Fall: (3) Ambulatory dysfunction: (4) Generalized weakness: Plan He has gen Deconditioning, orthostatic drop in BP. Unfortunately the longer you stay bedbound the worse this problems gets. As for orthostatic Hypotension he is already on Midodrine 10 tid. other option is thigh high compression stocking--But will be difficult to do this outpt at home as he and his may not have the strength to do this. If not able to at least knee length Check orthostatic Vitals q shift. Florinef can be used but difficult as it causes---Hypokalemia, Salt/eater retention. he already has issue with edema so will defer this. Can restart the home dose of Hydrocortisone--at least in theory Hydrocortisone has more of Mineralocorticoid action than plain prednisone. S--No new issues. seen By urology. exam: Vitals signs as noted above General Appearance:Moderately built and nourished, no apparent distress. Normal Speech but does repeat questions Respiratory/Chest: Normal breath sounds, CTA, No accessory muscle use Cardiovascular: S1, S2, + murmur Abdomen/GI:Soft, Non tender, Bowel sounds present Extremities/Musculoskeletal:normal inspection, RLE edema with venous stasis, LLE trace edema Neurologic/Psych:AAOx2, grossly no focal neurological deficits Skin: normal color, warm Results & Data Vital Signs (Past 12 Hours) Vital Signs Temp Pulse Pulse Resp BP Pulse Ox O2 Del Method 12/03/23 07:36 36.6 C 85 16 134/84 95 Room Air 12/03/23 07:21 87 12/03/23 00:07 72
--- NOTE | 2023-12-03 16:13 | Hospitalist Progress Note ---
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 He was hospitalized from October 10 to October 19, 2022 with shortness of breath. Was started on midodrine at that time for orthostatic hypotension. Discharged to rehab. He was home for the last 2 weeks; had 2 falls. Last fall was a day before presentation to the hospital. Urine tract infection Orthostatic hypotension/ambulatory dysfunction Acute kidney injury, resolved Patient presents with presyncope and falls History of orthostatic hypotension on midodrine No leukocytosis Creatinine increased to 1.4 on admission; down trended Urinalysis suggestive of infection Urine culture growing Enterococcus faecalis Chest x-ray personally reviewed; no acute finding Head CTno acute finding s/p 7 days of ampicillin, completed 11/30. Orthostatic vitals every shift Home midodrine at 2.5 mg 3 times daily, has been increased to 10 mg 3 times daily gradually while in hospital. Nephrology on board for orthostatic hypotension, appreciate recommendation. Continue compression stockings. Continue PT OT evaluation Stage II sacral pressure ulcer, POA Patient has been mostly lying on the bed since his discharge from rehab Developed superficial ulceration at the sacral area Wound care on board Q2 hours transition and reposition. Air mattress. Tatum cath placed, appreciate uro eval 12/01. Encourage OOB. 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 As per his oncologist note ; plan to taper down 10 mg every week. however, Patient cannot be completed taper off the steroid due to history of adrenal insufficiency. On Bactrim for PJP prophylaxis Will continue on prednisone 20 mg once a day for the time being. He will need follow-up with endocrinology as outpatient for further tapering as he has history of adrenal insufficiency. H/O DVT/PE S/P IVC filter H/O right lower extremity DVT--chronic Carcinoma of the bladder/Prostate H/O recurrent hematuria in the past Received Keytruda Follows with [facility] oncology Dr. Xavi Gramajo as outpatient Needs follow-up with oncology on discharge Other chronic conditions: H/O Aortic stenosis H/O dementia--no acute issues. Reorient frequently to minimize delirium. Continue Aricept, Namenda Pulmonary hypertension GERD--continue PPI H/O adrenal insufficiency--hydrocortisone on hold while on prednisone taper course. Need to follow-up with endocrinology for further tapering. DVTheparin, monitor for hematuria Dispositionpeer to peer done for rejection after acute rehab on November 26, 2023. Patient rejected for acute rehab; family appeal in progress. Please note the above document was generated using voice recognition software. It may contain grammatical, syntax or spelling errors. Any formal questions or concerns about the content, text or information contained within the body of this dictation should be directly addressed to the provider for clarification Admission and Anticipated Discharge Date Admission Date: November 24, 2023 Subjective Patient seen and examined at bedside. He is comfortable sitting up in chair, eating his lunch, not in distress. Reports eating okay. Denies pain. Encouraged him to participate in PT OT offers no complaints pt is incontinent of urine, tatum cath in. Physical Exam Physical Exam: General Appearance:Moderately built and nourished, no apparent distress Respiratory/Chest: Normal breath sounds, CTA, No accessory muscle use Cardiovascular: S1, S2, + murmur Abdomen/GI:Soft, Non tender, Bowel sounds present Extremities/Musculoskeletal:normal inspection, RLE edema with venous stasis, LLE trace edema Neurologic/Psych:AAOx2, grossly no focal neurological deficits Skin: normal color, warm Tatum cath insitu Results & Data Results & Data Vital Signs (Past 12 Hours) Vital Signs Temp Pulse Pulse Resp BP BP Pulse Ox 12/03/23 15:52 36.5 C 79 16 159/86 H 94 12/03/23 15:34 85 12/03/23 12:00 36.4 C L 77 18 147/90 H 94 12/03/23 07:36 36.6 C 85 16 134/84 95 12/03/23 07:21 87 O2 Del Method 12/03/23 15:52 Room Air 12/03/23 15:34 12/03/23 12:00 Room Air 12/03/23 07:36 Room Air 12/03/23 07:21 (4) Myocarditis Myocarditis type: unspecified Chronicity: chronic Qualified Code(s): I51.4 - Myocarditis, unspecified
[2023-12-04] MEDS ORDERED: Nursing to Pharmacy Communication SCH (03:30)
[2023-12-04] MEDS: busPIRone 5 MG TAB PO SCH (07:24)
--- NOTE | 2023-12-04 16:21 | Hospitalist Progress Note ---
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 He was hospitalized from October 10 to October 19, 2022 with shortness of breath. Was started on midodrine at that time for orthostatic hypotension. Discharged to rehab. He was home for the last 2 weeks; had 2 falls. Last fall was a day before presentation to the hospital. Urine tract infection Orthostatic hypotension/ambulatory dysfunction Acute kidney injury, resolved Patient presents with presyncope and falls History of orthostatic hypotension on midodrine No leukocytosis Creatinine increased to 1.4 on admission; down trended Urinalysis suggestive of infection Urine culture growing Enterococcus faecalis Chest x-ray personally reviewed; no acute finding Head CTno acute finding s/p 7 days of ampicillin, completed 11/30. Orthostatic vitals every shift Home midodrine at 2.5 mg 3 times daily, has been increased to 10 mg 3 times daily gradually while in hospital. Nephrology on board for orthostatic hypotension, appreciate recommendation. Continue compression stockings. Continue PT OT evaluation Stage II sacral pressure ulcer, POA Patient has been mostly lying on the bed since his discharge from rehab Developed superficial ulceration at the sacral area Wound care on board Q2 hours transition and reposition. Air mattress. Tatum cath placed, appreciate uro eval 12/01. Encourage OOB. 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 As per his oncologist note ; plan to taper down 10 mg every week. however, Patient cannot be completed taper off the steroid due to history of adrenal insufficiency. On Bactrim for PJP prophylaxis Will continue on prednisone 20 mg once a day for the time being. He will need follow-up with endocrinology as outpatient for further tapering as he has history of adrenal insufficiency. Will reach out to pt's endocrinology over Wednesday ot see if we can transition to hydrocortisone. H/O DVT/PE S/P IVC filter H/O right lower extremity DVT--chronic Carcinoma of the bladder/Prostate H/O recurrent hematuria in the past Received Keytruda Follows with [facility] oncology Dr. Xavi Gramajo as outpatient Needs follow-up with oncology on discharge Other chronic conditions: H/O Aortic stenosis H/O dementia--no acute issues. Reorient frequently to minimize delirium. Continue Aricept, Namenda Pulmonary hypertension GERD--continue PPI H/O adrenal insufficiency--hydrocortisone on hold while on prednisone taper course. Need to follow-up with endocrinology for further tapering. DVTheparin, monitor for hematuria Dispositionpeer to peer done for rejection after acute rehab on November 26, 2023. Patient rejected for acute rehab; family appeal in progress. Please note the above document was generated using voice recognition software. It may contain grammatical, syntax or spelling errors. Any formal questions or concerns about the content, text or information contained within the body of this dictation should be directly addressed to the provider for clarification Admission and Anticipated Discharge Date Admission Date: November 24, 2023 Subjective Patient seen and examined at bedside. He is comfortable sitting up in chair, was done eating his lunch, not in distress. Reports eating okay. Denies pain. Encouraged him to participate in PT OT offers no complaints pt is incontinent of urine, tatum cath in. Physical Exam Physical Exam: General Appearance:Moderately built and nourished, no apparent distress Respiratory/Chest: Normal breath sounds, CTA, No accessory muscle use Cardiovascular: S1, S2, + murmur Abdomen/GI:Soft, Non tender, Bowel sounds present Extremities/Musculoskeletal:normal inspection, RLE edema with venous stasis, LLE trace edema Neurologic/Psych:AAOx2, grossly no focal neurological deficits Skin: normal color, warm Tatum cath insitu Results & Data Results & Data Vital Signs (Past 12 Hours) Vital Signs Temp Pulse Pulse Resp BP Pulse Ox O2 Del Method 12/04/23 11:45 36.3 C L 79 16 156/85 H 94 Room Air 12/04/23 09:25 76 12/04/23 08:04 36.7 C 75 16 154/88 H 95 Room Air (4) Myocarditis Myocarditis type: unspecified Chronicity: chronic Qualified Code(s): I51.4 - Myocarditis, unspecified
[2023-12-04] MEDS: MELATONIN 3 MG TAB PO PRN (21:22)
--- NOTE | 2023-12-05 14:32 | Hospitalist Progress Note ---
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 He was hospitalized from October 10 to October 19, 2022 with shortness of breath. Was started on midodrine at that time for orthostatic hypotension. Discharged to rehab. He was home for the last 2 weeks; had 2 falls. Last fall was a day before presentation to the hospital. Urine tract infection Orthostatic hypotension/ambulatory dysfunction Acute kidney injury, resolved Patient presents with presyncope and falls History of orthostatic hypotension on midodrine No leukocytosis Creatinine increased to 1.4 on admission; down trended Urinalysis suggestive of infection Urine culture growing Enterococcus faecalis Chest x-ray personally reviewed; no acute finding Head CTno acute finding s/p 7 days of ampicillin, completed 11/30. Orthostatic vitals every shift Home midodrine at 2.5 mg 3 times daily, has been increased to 10 mg 3 times daily gradually while in hospital. Nephrology on board for orthostatic hypotension, appreciate recommendation. Continue compression stockings. Continue PT OT evaluation Stage II sacral pressure ulcer, POA Patient has been mostly lying on the bed since his discharge from rehab Developed superficial ulceration at the sacral area Wound care on board Q2 hours transition and reposition. Air mattress. Tatum cath placed, appreciate uro eval 12/01. Encourage OOB. 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 As per his oncologist note ; plan to taper down 10 mg every week. however, Patient cannot be completed taper off the steroid due to history of adrenal insufficiency. On Bactrim for PJP prophylaxis Will continue on prednisone 20 mg once a day for the time being. He will need follow-up with endocrinology as outpatient for further tapering as he has history of adrenal insufficiency. Will reach out to pt's endocrinology over Wednesday ot see if we can transition to hydrocortisone. H/O DVT/PE S/P IVC filter H/O right lower extremity DVT--chronic Carcinoma of the bladder/Prostate H/O recurrent hematuria in the past Received Keytruda Follows with [facility] oncology Dr. Xavi Gramajo as outpatient Needs follow-up with oncology on discharge Other chronic conditions: H/O Aortic stenosis H/O dementia--no acute issues. Reorient frequently to minimize delirium. Continue Aricept, Namenda Pulmonary hypertension GERD--continue PPI H/O adrenal insufficiency--hydrocortisone on hold while on prednisone taper course. Need to follow-up with endocrinology for further tapering. DVTheparin, monitor for hematuria Dispositionpeer to peer done for rejection after acute rehab on November 26, 2023. Patient rejected for acute rehab; family appeal in progress. Please note the above document was generated using voice recognition software. It may contain grammatical, syntax or spelling errors. Any formal questions or concerns about the content, text or information contained within the body of this dictation should be directly addressed to the provider for clarification Admission and Anticipated Discharge Date Admission Date: November 24, 2023 Subjective Patient seen and examined at bedside. He is comfortable sitting up in chair, not in distress. Reports eating okay. Denies pain. Encouraged him to participate in PT OT offers no complaints pt is incontinent of urine, tatum cath in. Physical Exam Physical Exam: General Appearance:Moderately built and nourished, no apparent distress Respiratory/Chest: Normal breath sounds, CTA, No accessory muscle use Cardiovascular: S1, S2, + murmur Abdomen/GI:Soft, Non tender, Bowel sounds present Extremities/Musculoskeletal:normal inspection, RLE edema with venous stasis, LLE trace edema Neurologic/Psych:AAOx2, grossly no focal neurological deficits Skin: normal color, warm Tatum cath insitu Results & Data Results & Data Vital Signs (Past 12 Hours) Vital Signs Temp Pulse Pulse Resp BP Pulse Ox O2 Del Method 12/05/23 11:56 36.3 C L 66 16 169/86 H 96 Room Air 12/05/23 08:01 36.8 C 80 16 146/87 H 95 Room Air 12/05/23 07:07 68 12/05/23 03:04 36.4 C L 68 18 144/88 H 98 Room Air (4) Myocarditis Myocarditis type: unspecified Chronicity: chronic Qualified Code(s): I51.4 - Myocarditis, unspecified
--- NOTE | 2023-12-06 14:25 | Hospitalist Progress Note ---
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 He was hospitalized from October 10 to October 19, 2022 with shortness of breath. Was started on midodrine at that time for orthostatic hypotension. Discharged to rehab. He was home for the last 2 weeks; had 2 falls. Last fall was a day before presentation to the hospital. Urine tract infection Orthostatic hypotension/ambulatory dysfunction Acute kidney injury, resolved Patient presents with presyncope and falls History of orthostatic hypotension on midodrine No leukocytosis Creatinine increased to 1.4 on admission; down trended Urinalysis suggestive of infection Urine culture growing Enterococcus faecalis Chest x-ray personally reviewed; no acute finding Head CTno acute finding s/p 7 days of ampicillin, completed 11/30. Orthostatic vitals every shift Home midodrine at 2.5 mg 3 times daily, has been increased to 10 mg 3 times daily gradually while in hospital. Nephrology on board for orthostatic hypotension, appreciate recommendation. Continue compression stockings. Continue PT OT evaluation Stage II sacral pressure ulcer, POA Patient has been mostly lying on the bed since his discharge from rehab Developed superficial ulceration at the sacral area Wound care on board Q2 hours transition and reposition. Air mattress. Tatum cath placed, appreciate uro eval 12/01. Encourage OOB. 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 As per his oncologist note ; plan to taper down 10 mg every week. however, Patient cannot be completed taper off the steroid due to history of adrenal insufficiency. On Bactrim for PJP prophylaxis Will continue on prednisone taper as per OP onco recs (see below). He will need follow-up with endocrinology as outpatient for further tapering/switching to other steroid forms as he has history of adrenal insufficiency. H/O DVT/PE S/P IVC filter H/O right lower extremity DVT--chronic Carcinoma of the bladder/Prostate H/O recurrent hematuria in the past Received Keytruda Follows with [facility] oncology Dr. Xavi Gramajo as outpatient Needs follow-up with oncology on discharge Other chronic conditions: H/O Aortic stenosis H/O dementia--no acute issues. Reorient frequently to minimize delirium. Continue Aricept, Namenda Pulmonary hypertension GERD--continue PPI H/O adrenal insufficiency--hydrocortisone on hold while on prednisone taper course. Need to follow-up with endocrinology for further tapering. OP chart review 12/05 - pt diagnosed w/ AI 05/2014 during admission at [facility] w/ fatigue, hypotension. He had cosyntropin stim test at that time. Baseline ACTH 7, baseline cortisol 10.1 Cortisol 30 med after cosyntropin 14.08, 60 min after cosyntropin 14.85. Repeated cosyntropin stimulation test 08/20/2015 baseline ACTH 89.3, baseline cortisol 13.3, cortisol at 30 min 17, cortisol at 60 min 18.8. Lost follow up with endo in 2017. Has been off hydrocortisone for 4 years at that time. OP endo eval suggested by Endo at that time. Stim Test in 04/08/2020 was normal, but no inperson evaluation by endo is noted in [facility]. He was deemed not needing any hydrocortisone at that time. Given his h/o of AI, onco who was managing OP prednisone wanted him to f/u w/ endocrinology for tapering of his further steroid. Pt supposed to be at 10 mg prednisone daily at this time. Will decrease prednisone dose to 15 mg daily for 7 days, then to 10 mg daily and defer further tapering to OP endocrine f/u as per OP onco eval. DVTheparin, monitor for hematuria Dispositionpeer to peer done for rejection after acute rehab on November 26, 2023. Patient rejected for acute rehab; family appeal in progress. Time spent evaluating patient, direct bedside care, chart review, placing order s, interpretation of diagnostic studies, discussion with consultants, patient, and family members, as well as other required patient management activities is __59__ minutes. Please note the above document was generated using voice recognition software. It may contain grammatical, syntax or spelling errors. Any formal questions or concerns about the content, text or information contained within the body of this dictation should be directly addressed to the undersigned for clarification. Admission and Anticipated Discharge Date Admission Date: November 24, 2023 Subjective Patient seen and examined at bedside. He is comfortable lyingin in bed, not in distress. Reports eating okay. Denies pain. Encouraged him to participate in PT OT offers no complaints pt is incontinent of urine, tatum cath in. Physical Exam Physical Exam: General Appearance:Moderately built and nourished, no apparent distress Respiratory/Chest: Normal breath sounds, CTA, No accessory muscle use Cardiovascular: S1, S2, + murmur Abdomen/GI:Soft, Non tender, Bowel sounds present Extremities/Musculoskeletal:normal inspection, RLE edema with venous stasis, LLE trace edema Neurologic/Psych:AAOx2, grossly no focal neurological deficits Skin: normal color, warm Tatum cath insitu Results & Data Results & Data Vital Signs (Past 12 Hours) Vital Signs Temp Pulse Pulse Resp BP BP Pulse Ox 12/06/23 11:22 36.7 C 70 16 155/88 H 94 12/06/23 09:29 68 12/06/23 07:37 36.5 C 69 18 144/82 H 96 12/06/23 04:01 36.5 C 74 16 150/83 H 96 O2 Del Method 12/06/23 11:22 Room Air 12/06/23 09:29 12/06/23 07:37 Room Air 12/06/23 04:01 Room Air (4) Myocarditis Chronicity: chronic Myocarditis type: unspecified Qualified Code(s): I51.4 - Myocarditis, unspecified
[2023-12-07] MEDS: predniSONE 5 MG TAB PO SCH (10:06)
--- NOTE | 2023-12-07 13:50 | Hospitalist Progress Note ---
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 He was hospitalized from October 10 to October 19, 2022 with shortness of breath. Was started on midodrine at that time for orthostatic hypotension. Discharged to rehab. He was home for the last 2 weeks; had 2 falls. Last fall was a day before presentation to the hospital. Urine tract infection Orthostatic hypotension/ambulatory dysfunction Acute kidney injury, resolved Patient presents with presyncope and falls History of orthostatic hypotension on midodrine No leukocytosis Creatinine increased to 1.4 on admission; down trended Urinalysis suggestive of infection Urine culture growing Enterococcus faecalis Chest x-ray personally reviewed; no acute finding Head CTno acute finding s/p 7 days of ampicillin, completed 11/30. Orthostatic vitals every shift Home midodrine at 2.5 mg 3 times daily, has been increased to 10 mg 3 times daily gradually while in hospital. Nephrology on board for orthostatic hypotension, appreciate recommendation. Continue compression stockings. Continue PT OT evaluation Stage II sacral pressure ulcer, POA Patient has been mostly lying on the bed since his discharge from rehab Developed superficial ulceration at the sacral area Wound care on board Q2 hours transition and reposition. Air mattress. Tatum cath placed, appreciate uro eval 12/01. Encourage OOB. 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 As per his oncologist note ; plan to taper down 10 mg every week. however, Patient cannot be completed taper off the steroid due to history of adrenal insufficiency. On Bactrim for PJP prophylaxis Will continue on prednisone taper as per OP onco recs (see below). He will need follow-up with endocrinology as outpatient for further tapering/switching to other steroid forms as he has history of adrenal insufficiency. H/O DVT/PE S/P IVC filter H/O right lower extremity DVT--chronic Carcinoma of the bladder/Prostate H/O recurrent hematuria in the past Received Keytruda Follows with [facility] oncology Dr. Xavi Gramajo as outpatient Needs follow-up with oncology on discharge Other chronic conditions: H/O Aortic stenosis H/O dementia--no acute issues. Reorient frequently to minimize delirium. Continue Aricept, Namenda Pulmonary hypertension GERD--continue PPI H/O adrenal insufficiency--hydrocortisone on hold while on prednisone taper course. Need to follow-up with endocrinology for further tapering. OP chart review 12/05 - pt diagnosed w/ AI 05/2014 during admission at [facility] w/ fatigue, hypotension. He had cosyntropin stim test at that time. Baseline ACTH 7, baseline cortisol 10.1 Cortisol 30 med after cosyntropin 14.08, 60 min after cosyntropin 14.85. Repeated cosyntropin stimulation test 08/20/2015 baseline ACTH 89.3, baseline cortisol 13.3, cortisol at 30 min 17, cortisol at 60 min 18.8. Lost follow up with endo in 2017. Has been off hydrocortisone for 4 years at that time. OP endo eval suggested by Endo at that time. Stim Test in 04/08/2020 was normal, but no inperson evaluation by endo is noted in [facility]. He was deemed not needing any hydrocortisone at that time. Given his h/o of AI, onco who was managing OP prednisone wanted him to f/u w/ endocrinology for tapering of his further steroid. Pt supposed to be at 10 mg prednisone daily at this time. Will decrease prednisone dose to 15 mg daily for 7 days, then to 10 mg daily and defer further tapering to OP endocrine f/u as per OP onco eval. DVTheparin, monitor for hematuria Dispositionpeer to peer done for rejection after acute rehab on November 26, 2023. Patient rejected for acute rehab; family appeal in progress. med/surg, awaiting placement. Please note the above document was generated using voice recognition software. It may contain grammatical, syntax or spelling errors. Any formal questions or concerns about the content, text or information contained within the body of this dictation should be directly addressed to the undersigned for clarification. Admission and Anticipated Discharge Date Admission Date: November 24, 2023 Subjective Patient seen and examined at bedside. He is comfortable lyingin in bed, not in distress. Reports eating okay. Ramiro es pain. Encouraged him to participate in PT OT offers no complaints pt is incontinent of urine, tatum cath in. Physical Exam Physical Exam: General Appearance:Moderately built and nourished, no apparent distress Respiratory/Chest: Normal breath sounds, CTA, No accessory muscle use Cardiovascular: S1, S2, + murmur Abdomen/GI:Soft, Non tender, Bowel sounds present Extremities/Musculoskeletal:normal inspection, RLE edema with venous stasis, LLE trace edema Neurologic/Psych:AAOx2, grossly no focal neurological deficits Skin: normal color, warm Tatum cath insitu Results & Data Results & Data Vital Signs (Past 12 Hours) Vital Signs Temp Pulse Pulse Resp BP Pulse Ox O2 Del Method 12/07/23 11:33 36.7 C 74 18 158/89 H 97 Room Air 12/07/23 08:00 74 12/07/23 07:44 36.2 C L 75 18 145/86 H 96 Room Air 12/07/23 03:56 36.6 C 66 18 168/94 H 98 Room Air (4) Myocarditis Myocarditis type: unspecified Chronicity: chronic Qualified Code(s): I51.4 - Myocarditis, unspecified
--- NOTE | 2023-12-08 16:49 | Hospitalist Progress Note ---
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 He was hospitalized from October 10 to October 19, 2022 with shortness of breath. Was started on midodrine at that time for orthostatic hypotension. Discharged to rehab. He was home for the last 2 weeks; had 2 falls. Last fall was a day before presentation to the hospital. Urine tract infection Orthostatic hypotension/ambulatory dysfunction Acute kidney injury, resolved Patient presents with presyncope and falls History of orthostatic hypotension on midodrine No leukocytosis Creatinine increased to 1.4 on admission; down trended Urinalysis suggestive of infection Urine culture growing Enterococcus faecalis Chest x-ray personally reviewed; no acute finding Head CTno acute finding s/p 7 days of ampicillin, completed 11/30. Orthostatic vitals every shift Home midodrine at 2.5 mg 3 times daily, has been increased to 10 mg 3 times daily gradually while in hospital. Nephrology on board for orthostatic hypotension, appreciate recommendation. Continue compression stockings. Continue PT OT evaluation Stage II sacral pressure ulcer, POA Patient has been mostly lying on the bed since his discharge from rehab Developed superficial ulceration at the sacral area Wound care on board Q2 hours transition and reposition. Air mattress. Tatum cath placed, appreciate uro eval 12/01. Encourage OOB. 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 As per his oncologist note ; plan to taper down 10 mg every week. however, Patient cannot be completed taper off the steroid due to history of adrenal insufficiency. On Bactrim for PJP prophylaxis Will continue on prednisone taper as per OP onco recs (see below). He will need follow-up with endocrinology as outpatient for further tapering/switching to other steroid forms as he has history of adrenal insufficiency. H/O DVT/PE S/P IVC filter H/O right lower extremity DVT--chronic Carcinoma of the bladder/Prostate H/O recurrent hematuria in the past Received Keytruda Follows with [facility] oncology Dr. Xavi Gramajo as outpatient Needs follow-up with oncology on discharge Other chronic conditions: H/O Aortic stenosis H/O dementia--no acute issues. Reorient frequently to minimize delirium. Continue Aricept, Namenda Pulmonary hypertension GERD--continue PPI H/O adrenal insufficiency--hydrocortisone on hold while on prednisone taper course. Need to follow-up with endocrinology for further tapering. OP chart review 12/05 - pt diagnosed w/ AI 05/2014 during admission at [facility] w/ fatigue, hypotension. He had cosyntropin stim test at that time. Baseline ACTH 7, baseline cortisol 10.1 Cortisol 30 med after cosyntropin 14.08, 60 min after cosyntropin 14.85. Repeated cosyntropin stimulation test 08/20/2015 baseline ACTH 89.3, baseline cortisol 13.3, cortisol at 30 min 17, cortisol at 60 min 18.8. Lost follow up with endo in 2017. Has been off hydrocortisone for 4 years at that time. OP endo eval suggested by Endo at that time. Stim Test in 04/08/2020 was normal, but no inperson evaluation by endo is noted in [facility]. He was deemed not needing any hydrocortisone at that time. Given his h/o of AI, onco who was managing OP prednisone wanted him to f/u w/ endocrinology for tapering of his further steroid. Pt supposed to be at 10 mg prednisone daily at this time. Will decrease prednisone dose to 15 mg daily for 7 days, then to 10 mg daily and defer further tapering to OP endocrine f/u as per OP onco eval. DVTheparin, monitor for hematuria Dispositionpeer to peer done for rejection after acute rehab on November 26, 2023. Patient rejected for acute rehab; family appeal in progress. med/surg, awaiting placement. Please note the above document was generated using voice recognition software. It may contain grammatical, syntax or spelling errors. Any formal questions or concerns about the content, text or information contained within the body of this dictation should be directly addressed to the undersigned for clarification. Admission and Anticipated Discharge Date Admission Date: November 24, 2023 Subjective Patient seen and examined at bedside. He is comfortable lyingin in bed, not in distress. Reports eating okay. Ramiro es pain. Encouraged him to participate in PT OT offers no complaints pt is incontinent of urine, tatum cath in. Physical Exam Physical Exam: General Appearance:Moderately built and nourished, no apparent distress Respiratory/Chest: Normal breath sounds, CTA, No accessory muscle use Cardiovascular: S1, S2, + murmur Abdomen/GI:Soft, Non tender, Bowel sounds present Extremities/Musculoskeletal:normal inspection, RLE edema with venous stasis, LLE trace edema Neurologic/Psych:AAOx2, grossly no focal neurological deficits Skin: normal color, warm Tatum cath insitu Results & Data Results & Data Vital Signs (Past 12 Hours) Vital Signs Temp Pulse Resp BP Pulse Ox O2 Del Method 12/08/23 16:07 36.4 C L 81 20 135/77 93 Room Air 12/08/23 07:55 36.6 C 76 20 153/91 H 95 Room Air (4) Myocarditis Myocarditis type: unspecified Chronicity: chronic Qualified Code(s): I51.4 - Myocarditis, unspecified
[2023-12-09 08:15] LABS: BUN Creatinine Ratio 22.2 (10-20); Calcium 9.3 mg/dl (8.6-10.3); Creatinine Clr Calc Pharmacy 51.8 ml/min; Est GFR (African American) 58.3 ml/min; Est GFR (Non-African American) 50.3 ml/min; Phosphorus 4.1 mg/dl (2.5-4.9); Potassium 4.2 mmol/L (3.5-5.1)
--- NOTE | 2023-12-09 12:03 | Discharge Summary ---
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 History obtained from the patient and review of outpatient PCP and oncology records. Patient recently admitted to [facility] 10/10 through 10/19 for bronchitis and generalized deconditioning. Patient discharged to [facility] for rehab. He returned home on 11/03. Patient reports a progressive decline since returning home. He has had 2 falls. Home health has been involved and recently concerned about patient's ability to remain at home. Patient reports feeling generally weak, otherwise offers no other complaints. Denies fevers and chills. No chest pain or shortness of breath. Denies lightheadedness, dizziness, diaphoresis, syncopal events. No urinary symptoms. In the ED, patient is hemodynamically stable. UA suggest possible UTI. Lactic acid 2.8 -> 1.7. Creatinine 1.4. Patient was given IV ceftriaxone and IVF. Admission Exam Per Admitting Provider Constitutional: WD/WN, vitals as above no acute distress Eyes: PERRL, conjunctivae normal, anicteric sclerae ENMT: external ear and nose normal, oropharynx normal Respiratory: normal respiratory effort, lungs clear to auscultation Cardiovascular: Rate/Rhythm: regular rate and regular rhythm Heart Sounds: + murmur (Grade 3/6, systolic) Vessels: normal peripheral pulses Extremities: + edema (+1 edema RLE > LLE ) Gastrointestinal (Abdomen): normal bowel sounds, soft, nontender, no hepatosplenomegaly Musculoskeletal: no cyanosis or clubbing, extremities motor strength 5/5 Skin: no rashes, warm and dry + nail abnormality (Right second toenail mostly avulsed) Chronic venous changes RLE Neurologic: PERRL, EOMI, accommodation nl, no face palsy, no dysarthria Psychiatric: A+Ox3, euthymic affect Principal Diagnosis Acute UTI Ambulatory dysfunction Orthostatic hypotension Acute kidney injury Stage II sacral pressure ulcer, POA History of myocarditis on prednisone taper Remote history of adrenal insufficiency Discharge Exam General Appearance:Moderately built and nourished, no apparent distress Respiratory/Chest: Normal breath sounds, CTA, No accessory muscle use Cardiovascular: S1, S2, + murmur Abdomen/GI:Soft, Non tender, Bowel sounds present Extremities/Musculoskeletal:normal inspection, RLE edema with venous stasis, LLE trace edema Neurologic/Psych:AAOx2, grossly no focal neurological deficits Skin: normal color, warm Tatum cath insitu Discharge Data Allergies Allergy/AdvReac Type Severity Reaction Status Date / Time Iodinated Contrast Media Allergy Severe LOVERSOL---CARDIAC Verified 11/23/23 21:[address] CONTRAST clindamycin Allergy Intermediate Rash Verified 11/23/23 21:07 chocolate flavor AdvReac Severe DIARRHEA/ Verified 11/23/23 21:07 Cannot take, interacts w/ medications. cranberry AdvReac Severe Cannot Verified 11/23/23 21:07 take, interacts w/ medications. pembrolizumab [From Keytruda] AdvReac Intermediate myocarditis Verified 11/23/23 21:07 Consultations 11/23/23 20:36 ED Decision to Admit Stat 11/30/23 15:08 Consult Nephrology Routine 12/02/23 13:33 Consult Urology Routine Ordered Studies 11/23/23 17:25 CT head/brain wo con Stat Hospital Course (1) Acute UTI (urinary tract infection): (2) Ambulatory dysfunction: (3) Generalized weakness: (4) Myocarditis: (5) S/P IVC filter: (6) History of DVT (deep vein thrombosis): (7) History of pulmonary embolism: (8) Primary bladder malignant neoplasm: (9) Hx of prostatic malignancy: Plan Patient is a 78-year-old male with past medical history of bladder cancer status post surgery off Keytruda secondary to myocarditis, hx bronchial asthma/COPD, ANDRZEJ ,Valvular heart disease (moderate , mild AR),hypertension, history PE DVT status post IVC filter placement, chronic anemia, Mild cognitive impairment, hx BPH/prostate cancer status post radiation, Ambulatory dysfunction, Thrombocytopenia presents to the hospital with dizziness and fall. He was hospitalized from October 10 to October 19, 2022 with shortness of breath. Was started on midodrine at that time for orthostatic hypotension. Discharged to rehab. He was home for the last 2 weeks; had 2 falls. Last fall was a day before presentation to the hospital. He was managed for the following: Urine tract infection Orthostatic hypotension/ambulatory dysfunction Acute kidney injury, resolved Patient presents with presyncope and falls History of orthostatic hypotension on midodrine No leukocytosis Creatinine increased to 1.4 on admission; down trended Urinalysis suggestive of infection Urine culture growing Enterococcus faecalis Chest x-ray personally reviewed; no acute finding Head CTno acute finding s/p 7 days of ampicillin, completed 11/30. Orthostatic vitals every shift Home midodrine at 2.5 mg 3 times daily, has been increased to 10 mg 3 times daily gradually while in hospital. Nephrology on board for orthostatic hypotension, appreciate recommendation. Continue compression stockings. Continue PT OT evaluation Stage II sacral pressure ulcer, POA Patient has been mostly lying on the bed since his discharge from rehab Developed superficial ulceration at the sacral area Wound care on board Q2 hours transition and reposition. Air mattress. Tatum cath placed, appreciate uro eval 12/01. Encourage OOB. f/u w/ uro in 1-2 weeks for tatum Mx. 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 As per his oncologist note ; plan to taper down 10 mg every week. however, Patient cannot be completed taper off the steroid due to history of adrenal insufficiency. On Bactrim for PJP prophylaxis Will continue on prednisone taper as per OP onco recs (see below). He will need follow-up with endocrinology as outpatient for further tapering/switching to other steroid forms as he has history of adrenal insufficiency. H/O DVT/PE S/P IVC filter H/O right lower extremity DVT--chronic Carcinoma of the bladder/Prostate H/O recurrent hematuria in the past Received Keytruda Follows with [facility] oncology Dr. Xavi Gramajo as outpatient Needs follow-up with oncology on discharge Other chronic conditions: H/O Aortic stenosis H/O dementia--no acute issues. Reorient frequently to minimize delirium. Continue Aricept, Namenda Pulmonary hypertension GERD--continue PPI H/O adrenal insufficiency--hydrocortisone on hold while on prednisone taper course. Need to follow-up with endocrinology for further tapering. OP chart review 12/05 - pt diagnosed w/ AI 05/[address] [facility] w/ fatigue, hypotension. He had cosyntropin stim test at that time. Baseline ACTH 7, baseline cortisol 10.1 Cortisol 30 med after cosyntropin 14.08, 60 min after cosyntropin 14.85. Repeated cosyntropin stimulation test 08/20/2015 baseline ACTH 89.3, baseline cortisol 13.3, cortisol at 30 min 17, cortisol at 60 min 18.8. Lost follow up with endo in 2016. Has been off hydrocortisone for 4 years at that time. OP endo eval suggested by Endo at that time. Stim Test in 04/08/2020 was normal, but no inperson evaluation by endo is noted in [facility] em[facility]. He was deemed not needing any hydrocortisone at that time. Given his h/o of AI, onco who was managing OP prednisone wanted him to f/u w/ e ndocrinology for tapering of his further steroid. Pt supposed to be at 10 mg prednisone daily at this time. Will decrease prednisone dose to 15 mg daily for 7 days, then to 10 mg daily and defer further tapering to OP endocrine f/u as per OP onco eval. DVTheparin, monitor for hematuria Patient is being discharged to SNF with following instruction at the point of discharge: Follow-up with your primary care physician within a week time and likely you will need labs CBC/CMP/magnesium/phosphorus. You completed the course of antibiotic for UTI, your acute kidney injury has been resolved. Given your incontinence of urine and stage II sacral pressure ulcer, you are at risk of infecting/worsening of your decubitus ulcer. Urology evaluated you, c ontinue with Tatum catheter, possible voiding trial in a week time. Follow-up with urology in 1 week time. For your myocarditis, you are on prednisone being managed by your oncology as an outpatient. You will continue prednisone 15 mg daily for next 4 days, then 10 mg daily thereafter. You will need to follow-up with endocrinology [per your oncology recommendation] for further tapering down of your prednisone beyond 10 mg daily dose. Follow-up with endocrinology in 1 to 2 weeks time upon discharge . Follow-up with oncology in 1 to 2 weeks time upon discharge. Take your medications as prescribed. For your orthostatic hypotension: Your midodrine dose has been maximized. Use following measures as well. Avoid triggers [heat exposure, overexertion, alcohol, hot tubs, dehydration] Caution with Valsalva like maneuvers [avoiding straining with defecation, urination] Avoid prolonged sitting or standing. If prolonged inactivity, do ankle pumps and cross/uncross legs. Avoid abrupt change from lying to standing [sit at edge of the bed for a minute before standing] or sitting to standing. Rise gradually from sitting to standing [that is, after being inactive or sitting on the toilet]. Full leg compression stocking [example, ankle to hips compression stocking at 22-32 mmHg, not just calves or thighs] Please make sure that you are able to get your medications today by calling your pharmacy before you leave the hospital so that your treatment continuity is not broken. Please note the above document was generated using voice recognition software. It may contain grammatical, syntax or spelling errors. Any formal questions or concerns about the content, text or information contained within the body of this dictation should be directly addressed to the undersigned for clarification. Home Health Attestation I certify that this patient is under my care and that I, or a physicians grants and contracts assistant working with me, had a face to-face encounter that meets the home [id number] encounter requirements with this patient. The encounter with the patient was in whole, or in part, for the following medical condition, which is the primary reason for home health care (list medical condition): I certify that, based on my findings, the following services are medically necessary home health services: My clinical findings support the need for the above services because: Further, I certify that my clinical findings support that this patient is homebound (i.e. absences from home require considerable and taxing effort and are for medical reasons or congregational services or infrequently or of short duration when for other reasons) because: Certification for Home Health Services: Based on the above findings, I certify that this patient is confined to the home and needs intermittent custodial care, physical therapy and/or speech therapy or continues to need occupational therapy. The patient is under my care, and I have initiated the establishment of the plan of care. This patient will be followed by a physician who will periodically review the plan of care. Total Time Total Time Spent Total Time Spent (In Minutes): 45 Discharge Plan Discharge Items Patient Disposition: Transfer [facility] Fac Reason For Visit: NEAR SYNCOPE Discharge Diagnosis: Acute UTI Ambulatory dysfunction Orthostatic hypotension Acute kidney injury Stage II sacral pressure ulcer, POA History of myocarditis on prednisone taper Remote history of adrenal insufficiency Activity: As commented below Activity Comment: continue with PT/OT Non-emergency contact: Primary Care Provider Call non-emergency contact if: you have any medication questions, your symptoms worsen and your temperature is above 101.5 Follow-up/Referrals: Deondre Hill MD [Primary Care Provider] - Diet: Heart Healthy Addtl Attending Provider Instructions: Follow-up with your primary care physician within a week time and likely you will need labs CBC/CMP/magnesium/phosphorus. You completed the course of antibiotic for UTI, your acute kidney injury has been resolved. Given your incontinence of urine and stage II sacral pressure ulcer, you are at risk of infecting/worsening of your decubitus ulcer. Urology evaluated you, continue with Tatum catheter, possible voiding trial in a week time. Follow-up with urology in 1 week time. For your myocarditis, you are on prednisone being managed by your oncology as an outpatient. You will continue prednisone 15 mg daily for next 4 days, then 10 mg daily thereafter. You will need to follow-up with endocrinology [per your oncology recommendation] for further tapering down of your prednisone beyond 10 mg daily dose. Follow-up with endocrinology in 1 to 2 weeks time upon discharge . Follow-up with oncology in 1 to 2 weeks time upon discharge. Take your medications as prescribed. For your orthostatic hypotension: Your midodrine dose has been maximized. Use following measures as well. Avoid triggers [heat exposure, overexertion, alcohol, hot tubs, dehydration] Caution with Valsalva like maneuvers [avoiding straining with defecation, urination] Avoid prolonged sitting or standing. If prolonged inactivity, do ankle pumps and cross/uncross legs. Avoid abrupt change from lying to standing [sit at edge of the bed for a minute before standing] or sitting to standing. Rise gradually from sitting to standing [that is, after being inactive or sitting on the toilet]. Full leg compression stocking [example, ankle to hips compression stocking at 22-32 mmHg, not just calves or thighs] Please make sure that you are able to get your medications today by calling your pharmacy before you leave the hospital so that your treatment continuity is not broken. Pending Studies at Discharge: No Stand-Alone Forms: [employer] Skilled Items Patient informed of condition?: Yes DNR: No Discharge Level of Care: Skilled Communicable Disease: No Discharge Prognosis: Stable Lines: None Urinary Catheter: Yes Medications and DC Order Prescriptions: New midodrine 10 mg Tablet 10 mg PO TID@0800,1200,1600 Qty: 90 0RF prednisone 5 mg Tablet 15 mg PO UD Qty: 64 0RF Rx Instructions: 15 mg daily for 4 days, then 10 mg daily thereafter Continued epinephrine 0.3 mg/0.3 mL auto-injector 0.3 mg IM DIRECTED PRN (Reason: anaphylaxis) donepezil 10 mg tablet 10 mg PO QAM buspirone 5 mg tablet 5 mg PO TID montelukast 10 mg tablet 10 mg PO DAILY fluticasone propionate 50 mcg/actuation spray,suspension 2 spray INTRANASAL DAILY Trelegy Ellipta 200-62.5-25 mcg blister with device 1 inh INHALATION QPM ascorbic acid (vitamin C) [Vitamin C] 1,000 mg Tablet 1,000 mg PO QAM ferrous sulfate 325 mg (65 mg iron) tablet,delayed release (DR/EC) 325 mg PO DAILY acetaminophen [Tylenol] 325 mg Tablet 650 mg PO Q4H PRN (Reason: PAIN/FEVER) sennosides-docusate sodium [Senna Plus] 8.6-50 mg Tablet 1 tab-cap PO DAILY PRN (Reason: Constipation) omeprazole 20 mg capsule,delayed release(DR/EC) 20 mg PO QAM multivit with min-folic acid [Multivitamin Gummies] 200 mcg Tablet,Chewable 1 tab PO DAILY cholecalciferol (vitamin D3) 125 mcg (5,000 unit) Tablet 125 mcg PO DAILY vitamin B complex Tablet 1 tab PO DAILY sulfamethoxazole-trimethoprim 800-160 mg tablet 1 tab PO [id number] Rx Instructions: begin 11/12/23 x 84 days, take one tablet every Wednesday, Wednesday, and Wednesday. memantine 10 mg tablet 10 mg PO BIDM albuterol sulfate 90 mcg/actuation HFA aerosol inhaler 2 puff INHALATION Q6 PRN (Reason: Shortness Of Breath Or Wheezing) Discontinued midodrine 5 mg tablet 2.5 mg PO TID Rx Instructions: do not give last dose of day after 6PM or within 4 hrs of bedtime prednisone 20 mg tablet 30 mg PO .daily ud Rx Instructions: FROM NOVEMBER 13 TO NOVEMBER 19 : TAKE 30 MG DAILY, THEN FROM NOVEMBER 20- TAKE 20MG DAILY, THEN CHECK WITH DR GRAMAJO FOR FUTURE DOSES. Discharge Orders: Discharge Order (Routine); Ordered 12/09/23 Ordered By: Issa Dickerson Admission Data Admit Date/Time: 11/24/23 14:14 Attending Provider: Issa Dickerson Admit Provider: Branden Chung Primary Care Provider: Deondre Hill Other Providers: [facility]; IRB Approved Study,[facility]; [place],[facility]; Branden Chung; Prateek Cottrell
[2023-12-14] MEDS ORDERED: predniSONE 5 MG TAB PO SCH (09:00)
== END 2023-12-09 16:03 | DRG 690 ==
LOC: ED 16:24 → EDINP 16:24 → SUATTDRO 23:38 → 2N 11-24 02:00 → SUATTDRO 11-24 14:14
DX: Z88.1 Allergy status to other antibiotic agents; Z86.73 Personal history of transient ischemic attack (TIA), and cerebral infarction without residual deficits; I35.0 Nonrheumatic aortic (valve) stenosis; B95.2 Enterococcus as the cause of diseases classified elsewhere; N18.30 Chronic kidney disease, stage 3 unspecified; R29.6 Repeated falls; T50.Z15A Adverse effect of immunoglobulin, initial encounter; C67.9 Malignant neoplasm of bladder, unspecified; Z95.828 Presence of other vascular implants and grafts; Z85.46 Personal history of malignant neoplasm of prostate; Z91.041 Radiographic dye allergy status; N39.0 Urinary tract infection, site not specified; I12.9 Hypertensive chronic kidney disease with stage 1 through stage 4 chronic kidney disease, or unspecified chronic kidney disease; Y92.009 Unspecified place in unspecified non-institutional (private) residence as the place of occurrence of the external cause; Z86.718 Personal history of other venous thrombosis and embolism; N17.9 Acute kidney failure, unspecified; C61 Malignant neoplasm of prostate; L89.152 Pressure ulcer of sacral region, stage 2; I51.4 Myocarditis, unspecified; F03.90 Unspecified dementia, unspecified severity, without behavioral disturbance, psychotic disturbance, mood disturbance, and anxiety; I95.1 Orthostatic hypotension; E27.1 Primary adrenocortical insufficiency; I27.20 Pulmonary hypertension, unspecified; N40.0 Benign prostatic hyperplasia without lower urinary tract symptoms

== ENCOUNTER 2024-01-04 09:46 | Inpatient (IN) ==
--- NOTE | 2024-01-04 10:04 | Emergency Department Note ---
Impression & Plan Weakness, Ptosis, Syncope ED Provider Note NAME: EDWIN ESPANA AGE: 78 SEX: M : 1945 ARRIVES VIA: Ambulance INFORMANT: [Patient][, ] ED PROVIDER(S): [Deondre Roman MD] CHIEF COMPLAINT: [] MEDICAL DECISION MAKING: Patient presented due to concern for an episode of syncope with associated right-sided ptosis. IV was established and blood work is obtained. Patient reportedly has contrast allergy so CT of the head was obtained initially along with the blood work. Patient's blood work showed a white count of 11.9 with hemoglobin of 12.9. Platelet count is unremarkable. Kidney function unremarkable. Glucose 136. Troponin negative. Lyme's negative. I did convey the findings to the patient and the patient's at bedside. I did suggest inpatient treatment given the patient's history of syncope that occurred prior to arrival along with strokelike symptoms. I did speak with the on-call hospitalist service Deb and the patient was admitted by Dr. Vázquez. Discussion w/ other healthcare providers: [None] Prior /Outside records reviewed: I reviewed a discharge summary from December 09, [address] Dickerson. Known history of adrenal insufficiency on chronic steroids asthma ANDRZEJ history of DVT PE status post IVC filter no longer anticoagulated due to bleeding issues history of Keytruda induced myocarditis. Patient had presented due to concern for weakness and associated fall at that time. Patient also reportedly on Bactrim for PJP prophylaxis. Differential diagnosis: Vasovagal event, dehydration, infection, hypoglycemia, electrolyte abnormalities, arrhythmia, pulmonary embolism, seizure among others were considered. Diagnostics, as interpreted by me: ECG: Normal sinus rhythm, rate of 69, normal intervals, normal axis no ST elevations or TWI Cardiac monitoring: An order was placed for continuous cardiac monitoring. The monitor shows a rate of 72 with sinus rhythm. [Patient was placed on pulse oximetry] Medical decision rules: [none] Imaging studies: [I informally interpreted the patient's chest x-ray does not show obvious pneumonia with formal report to follow.] [] HPI: Nursing reports that the patient presented from the dentist. A brief episode of unresponsiveness noticed to have some right eye droopiness after being at the dentist. No additional deficits at this time. Patient states that he was transferring getting out of a car had stood up and then it passed out. Nursing reports that the states that he was sitting on his walker and had a period of unresponsiveness for about a minute duration no reported seizure-like activity. Patient denies any abdominal pain no nausea vomiting no chest pain. The patient states that he has had an issue with the right eye before. Patient does not take blood thinning medications. PAST MEDICAL HISTORY: [See Below] PAST SURGICAL HISTORY: [See Below] SOCIAL HISTORY: [See Below] HOME MEDICATIONS: [See Below] ALLERGIES: [See Below] VITALS: [See Below] PHYSICAL EXAMINATION: GENERAL: NAD, non-toxic. EYE EXAM: Normal conjunctiva. PERRL, no anisocoria and EOM's grossly intact w/o pain. OROPHARYNX: Moist mucus membranes, grossly normal dentition. NECK: Trachea midline, no stridor. [Supple, no nuchal rigidity, no adenopathy, non-tender. No signs of meningismus. FROM of the neck with good chin to chest and neck extension.] LUNGS: Clear to auscultation. Normal chest wall mechanics. HEART: NSR, no MRG. ABDOMEN: Abdomen soft, non-tender, no masses, no rebound or guarding. BACK: No CVA TTP. SKIN: No rashes and no bruising. UPPER EXTREMITIES: Upper extremities are grossly normal. LOWER EXTREMITIES: Grossly normal, no edema. NEURO EXAM: A&O x3, cranial nerves II-XII grossly intact with exception of possible right eye droopiness but no significant change in grimace tongue is midline, normal speech, moves all 4 extremities. Good [id number], no drift and no sensory deficits Past Med/Surg History Problem List (Updated 01/07/24 @ 18:05 by Deondre Roman MD) Syncope (Acute) Ptosis (Acute) Weakness (Acute) Dental root caries Fracture of multiple teeth Sacral pressure sore History of hematuria Chronic anemia GERD (gastroesophageal reflux disease) Tremor observed on examination Mild cognitive impairment COPD (chronic obstructive pulmonary disease) Asthma Elevated white blood cell count Acute oral pain History of myocarditis History of prostate cancer History of bladder cancer Immunosuppression due to chronic steroid use History of orthostatic hypotension Urinary incontinence Episode of unresponsiveness Hx of prostatic malignancy ~ 2013- s/p Lupron and XRT Elevated lactic acid level (Acute) Non-ST elevation MO (NSTEMI) (Acute) Acute UTI (urinary tract infection) (Acute) Ambulatory dysfunction (Acute) Generalized weakness (Acute) Myocarditis Dementia Elevated liver function tests Weakness Elevated troponin (Acute) Acute blood loss anemia Primary bladder malignant neoplasm Hematuria (Acute) Urinary frequency Acute middle ear effusion (Acute) Fall (Acute) Cerumen impaction Orthostatic hypotension Orthostatic lightheadedness History of acute renal failure SOB (shortness of breath) (Acute) Coagulopathy (Acute) Acute urinary retention (Acute) Anemia (Acute) Hematuria (Acute) Dyspnea Preprocedural cardiovascular examination performed Urethral stricture Hematuria Encounter for pre-operative examination Incontinence Hx of blood clots Heart attack History of back problems Tongue discoloration Coated tongue senior living current use of anticoagulant (Chronic) Prostate cancer DVT prophylaxis Asthma AMS (altered mental status) Cellulitis (Acute) Dietary counseling and surveillance Obesity (Chronic) Obstructive sleep apnea (Acute) Adrenal insufficiency (Acute 06/04/14) Bladder cancer (Acute) S/P IVC filter Weakness (Acute) Mild cognitive impairment, so stated Anemia (Acute) (06/25/23)to start receiving iron infusions Prostate cancer (12/22/13) "Positive family history of prostate cancer Rising PSA to 6.54 Status post ultrasound-guided biopsies 12/22/2013 revealing adenocarcinoma Jose 3+4 Status post TURP 04/23/2014 benign tissue Status post repeat biopsy 07/19/2015 3+3, and 3+4 4+3 Status post repeat biopsy 03/06/2016 3+4, 4+3 and 4+4 Initiation of hormonal suppression 07/21/2016 with Lupron 30 mg. Plan for 18 months of hormonal suppression Status post completion of radiation therapy 10/09/2016 received 8040 cGy" On 05/20/16 11:31 Hilda Montemayor wrote "Positive family history of prostate cancer Rising PSA to 6.54 Status post ultrasound-guided biopsies 12/22/2013 revealing adenocarcinoma Zoar 3+4 Status post TURP 04/23/2014 benign tissue Status post repeat biopsy 07/19/2015 3+3, and 3+4 4+3 Status post repeat biopsy 03/06/2016 3+4, 4+3 and 4+4" DVT (deep venous thrombosis) Stage 3 chronic kidney disease (Acute) History of pulmonary embolism hx "many years ago" unknown etiology History of DVT (deep vein thrombosis) hx "many years ago" unknown etiology acute on chronic DVT during 12/2022 [facility] admission- Coumadin d/c'ed due to anemia and hematuria; IVC filter placed 12/28/22 Venous insufficiency (chronic) (peripheral) (Acute) COPD (chronic obstructive pulmonary disease) (Chronic) well controlled. 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 no surgery needed. 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 Benign prostatic hyperplasia Contrast media allergy Hiatal hernia Surgical History S/P cataract extraction History of right cataract extraction History of colonoscopy H/O sinus surgery History of appendectomy S/P TURP (status post transurethral resection of prostate) Status post cystoscopy (11/07/13) Family History Father Prostate cancer Brother Prostate cancer Mother Thyroid cancer Cancer Other No family history of adverse response to anesthesia Social History Smoking Status: Never smoker Tobacco Type: Cigarettes Second Hand Exposure: No; Do You Dip or Chew Tobacco: No; Hx Alcohol Use: Yes Alcohol type: beer Alcohol Intake Frequency: Monthly or Less Hx Substance Use: No Preferred Language: Kinyarwanda Communication Ability: Effective Visual Impairment: Limited Hearing Ability: Normal Cigar Head Perforator Required: No Beliefs That Will Affect Care: None marital status: Current Living Situation: Spouse Current Living Situation Comment: at home with current occupational status: retired How many Children do You have: 0 Feels Safe at Home: Yes Safety Concerns: Feels Safe At This Time Diet: regular during the past year weight has: decreased > 10 lbs Seatbelt Use: always Do you think of yourself as: straight/heterosexual Gender Identity: Male Assistive Devices: Bedside Commode, Hospital Bed and Walker Allergies Allergies Allergy/AdvReac Type Severity Reaction Status Date / Time Iodinated Contrast Media Allergy Severe LOVERSOL---CARDIAC Verified 01/04/24 15:[address] CONTRAST clindamycin Allergy Intermediate Rash Verified 01/04/24 15:42 chocolate flavor AdvReac Severe DIARRHEA/ Verified 01/04/24 15:42 Cannot take, interacts w/ medications. cranberry AdvReac Severe Cannot Verified 01/04/24 15:42 take, interacts w/ medications. pembrolizumab [From [facility]] AdvReac Intermediate myocarditis Verified 01/04/24 15:42 Home Meds Home Medications Medication Instructions Recorded Confirmed donepezil 10 mg tablet 10 mg PO QAM 04/13/22 01/04/24 ascorbic acid (vitamin C) 1,000 mg 1,000 mg PO QAM 08/27/22 01/04/24 tablet (Vitamin C) epinephrine 0.3 mg/0.3 mL 0.3 mg IM DIRECTED PRN 11/30/22 01/04/24 injection, auto-injector anaphylaxis fluticasone fur. 200 mcg-umeclid 1 inh inhalation QPM 12/12/22 01/04/24 62.5 mcg-vilant 25 mcg inhalat.powder (Trelegy Ellipta) fluticasone propionate 50 2 spray intranasal DAILY 12/12/22 01/04/24 mcg/actuation nasal spray,suspension ferrous sulfate 325 mg (65 mg 325 mg PO QAM 04/07/23 01/04/24 iron) tablet,delayed release acetaminophen 325 mg tablet 650 mg PO Q4H PRN PAIN/FEVER 10/09/23 01/04/24 (Tylenol) multivitamin with minerals-folic 1 tab PO QAM 10/09/23 01/04/24 acid 200 mcg chewable tablet (Multivitamin Gummies) omeprazole 20 mg capsule,delayed 20 mg PO QAM 10/09/23 01/04/24 release sennosides 8.6 mg-docusate sodium 1 tab-cap PO DAILY PRN Constipation 10/09/23 01/04/24 50 mg tablet (Senna Plus) albuterol sulfate 90 mcg/actuation 2 puff inhalation Q6 PRN Shortness 11/23/23 01/04/24 aerosol inhaler Of Breath Or Wheezing cholecalciferol (vitamin D3) 125 125 mcg PO QAM 11/23/23 01/04/24 mcg (5,000 unit) tablet memantine 10 mg tablet 10 mg PO BIDM 11/23/23 01/04/24 cyanocobalamin (vitamin B-12) 1,000 mcg PO QAM 01/04/24 01/04/24 1,000 mcg tablet (Vitamin B-12) midodrine 2.5 mg tablet 2.5 mg PO TID 01/04/24 01/04/24 prednisone 10 mg tablet 10 mg PO QAM 01/04/24 01/04/24 sertraline 25 mg tablet 25 mg PO QPM 01/04/24 01/04/24 sulfamethoxazole 800 1 tab PO 3XWK 01/04/24 01/04/24 mg-trimethoprim 160 mg tablet vitamin E 400 unit tablet 45 mg PO QAM 01/04/24 01/04/24 Results & Data (ED) Vital Signs Vital Signs - 24 hr 01/04/24 09:56 01/04/24 10:33 01/04/24 10:33 Temperature 36.7 C Temperature Source Temporal Artery Scan Pulse Rate 69 65 Pulse Rate [Apical] 68 Respiratory Rate 18 18 Respiratory Effort / Characteristics Non-Labored Spontaneous Non-Labored Spontaneous Respiratory Depth Normal Normal Blood Pressure 167/95 H Blood Pressure [Right Arm] 167/95 H Blood Pressure Mean 119 Blood Pressure Mean [Right Arm] 119 Blood Pressure Position Lying Blood Pressure Position [Right Arm] Lying Pulse Oximetry 99 98 Oxygen Delivery Method Room Air Room Air Sepsis Recent Fever Within 48 Hours No Sepsis New/Unexplained Change in Mental Status No Sepsis Action Taken by Nursing No Action Required Home Medications Current Medication List: was personally reviewed by me Laboratory Data Attestation: I reviewed the patient's lab results. 01/06/24 08:36 01/06/24 08:36 Lab Results 01/04/24 Range/Units 09:59 WBC 11.93 H (4.8-10.8) K/ul RBC 4.17 L (4.70-6.10) M/uL Hgb 12.9 L (14.0-18.0) g/dl Hct 40.1 L (42.0-52.0) % MCV 96.2 (80.0-100.0) fL MCH 30.9 (25.0-34.0) pg MCHC 32.2 (32.0-36.0) g/dL RDW Std Deviation 55.8 H (36.4-46.3) fL RDW Coeff of Robert 15.7 H (11.5-14.5) % Plt Count 259 (130-400) K/uL MPV 9.0 L (9.4-12.4) fL Immature Gran % (Auto) 0.6 % Neut % (Auto) 80.5 % Lymph % (Auto) 12.9 % [place] % (Auto) 5.4 % Eos % (Auto) 0.2 % Baso % (Auto) 0.4 % Neut # (Auto) 9.61 H (1.40-6.50) K/uL Lymph # (Auto) 1.54 (1.20-3.40) K/uL [place] # (Auto) 0.64 H (0.11-0.59) K/uL Eos # (Auto) 0.02 (0.00-0.50) K/uL Baso # (Auto) 0.05 (0.00-0.20) K/uL Immature Gran # (Auto) 0.07 (0.01-0.20) K/uL Sodium 139 (136-145) mmol/L Potassium 3.5 (3.5-5.1) mmol/L Chloride 103 (98-107) mmol/L Carbon Dioxide 27 (21-32) mmol/L Anion Gap 9 (3-11) BUN 17 (6-23) mg/dl Creatinine 1.19 (0.6-1.4) mg/dl Est Cr Clr Drug Dosing 67.7 ml/min Est GFR ( Amer) 67.9 ml/min Est GFR (Non-Af Amer) 58.6 ml/min BUN/Creatinine Ratio 14.3 (10-20) Glucose 136 H (70-99(Fasting)) mg/dl Calcium 9.3 (8.6-10.3) mg/dl Total Bilirubin 0.4 (0.2-1.0) mg/dl AST 9 L (13-39) U/L ALT 10 (7-52) U/L Alkaline Phosphatase 60 (34-104) U/L Troponin I High Sens 8.5 (0-20) pg/ml Total Protein 5.8 L (6.0-8.3) gm/dl Albumin 3.5 (3.4-5.0) gm/dl Globulin 2.3 L (2.5-4.0) gm/dl Albumin/Globulin Ratio 1.5 (0.9-2) Lyme Disease Screen Negative (Negative) Administered Medications Acetaminophen (Acetaminophen 325 Mg Tab) 650 mg PO Q4H PRN PRN Reason: pain/fever Stop: 02/03/24 17:29 Last Admin: 01/07/24 10:59 Dose: 650 mg Documented By: Admin: 01/07/24 05:24 Dose: 650 mg Documented By: Admin: 01/07/24 00:58 Dose: 650 mg Documented By: Admin: 01/06/24 19:58 Dose: 650 mg Documented By: Admin: 01/06/24 14:04 Dose: 650 mg Documented By: Admin: 01/06/24 08:05 Dose: 650 mg Documented By: Admin: 01/05/24 20:35 Dose: 650 mg Documented By: Admin: 01/05/24 12:03 Dose: 650 mg Documented By: Admin: 01/04/24 21:10 Dose: 650 mg Documented By: MONA Amlodipine Besylate (Amlodipine Besylate 5 Mg Tab) 2.5 mg PO QAM [facility] Stop: 02/04/24 03:14 Last Admin: 01/07/24 07:43 Dose: 2.5 mg Documented By: Admin: 01/06/24 08:07 Dose: 2.5 mg Documented By: Admin: 01/05/24 03:52 Dose: 2.5 mg Documented By: MONA Amoxicillin/Clavulanate Potassium (Amoxicillin/Clavulanate 875 Mg Tab) 1 tab PO BIDM [facility]; Protocol Stop: 01/15/24 19:59 Last Admin: 01/07/24 16:06 Dose: 1 tab Documented By: Admin: 01/07/24 07:43 Dose: 1 tab Documented By: Admin: 01/06/24 16:41 Dose: 1 tab Documented By: Admin: 01/06/24 08:06 Dose: 1 tab Documented By: Admin: 01/05/24 20:34 Dose: 1 tab Documented By: MICKEY Aspirin (Aspirin 81 Mg Ectab) 81 mg PO DAILY [facility] Stop: 02/04/24 08:59 Last Admin: 01/07/24 07:43 Dose: 81 mg Documented By: Admin: 01/06/24 08:08 Dose: 81 mg Documented By: Admin: 01/05/24 09:21 Dose: 81 mg Documented By: MINOO Atorvastatin Calcium (Atorvastatin 40 Mg Tab) [facility] [place] [place] Stop: 02/04/24 08:59 Last Admin: 01/07/24 07:43 Dose: 40 mg Documented By: Admin: 01/06/24 08:07 Dose: 40 mg Documented By: Admin: 01/05/24 09:23 Dose: 40 mg Documented By: MINOO Benzocaine (Benzocaine 20% (Orajel) 11.9 Gm Tube) 1 appln MT QID PRN PRN Reason: toothache Stop: 02/03/24 22:27 Last Admin: 01/07/24 04:23 Dose: 1 appln Documented By: Admin: 01/06/24 22:21 Dose: 1 appln Documented By: Admin: 01/06/24 16:42 Dose: 1 appln Documented By: Admin: 01/06/24 14:48 Dose: 1 appln Documented By: Admin: 01/06/24 08:52 Dose: 1 appln Documented By: Admin: 01/04/24 23:10 Dose: 1 appln Documented By: NRR Cyanocobalamin (Cyanocobalamin (B-12) 500 Mcg Tablet) 1,000 mcg [facility] [place] [place] Stop: 02/04/24 08:59 Last Admin: 01/07/24 07:43 Dose: 1,000 mcg Documented By: Admin: 01/06/24 08:07 Dose: 1,000 mcg Documented By: Admin: 01/05/24 09:22 Dose: 1,000 mcg Documented By: MINOO Donepezil HCl (Donepezil Hcl 10 Mg Tab) [facility] [place] [place] Stop: 02/04/24 08:59 Last Admin: 01/06/24 08:07 Dose: 10 mg Documented By: Admin: 01/05/24 09:21 Dose: 10 mg Documented By: MINOO Ferrous Sulfate (Ferrous Sulfate 325 Mg Tab) 325 [facility] [place] [place] Stop: 02/04/24 08:59 Last Admin: 01/07/24 07:43 Dose: 325 mg Documented By: Admin: 01/06/24 08:07 Dose: 325 mg Documented By: Admin: 01/05/24 09:21 Dose: 325 mg Documented By: MINOO Fludrocortisone Acetate (Fludrocortisone Acetate 0.1 Mg Tab) 0.1 mg PO QAM [facility] Stop: 02/06/24 10:44 Last Admin: 01/07/24 12:37 Dose: 0.1 mg Documented By: MARTÍN Fluticasone Furoate (Fluticasone Furoate 200mcg 14 Puffs/Inhaler) 1 puffs INH PM [facility] Stop: 02/03/24 20:59 Last Admin: 01/06/24 20:00 Dose: 1 puffs Documented By: Admin: 01/05/24 20:33 Dose: 1 puffs Documented By: Admin: 01/04/24 20:10 Dose: 1 puffs Documented By: MONA Fluticasone Propionate (Fluticasone Propionate Na Spr 16 Gm Btl) 2 sprays NA DAILY [facility] Stop: 02/04/24 08:59 Last Admin: 01/07/24 07:44 Dose: 2 sprays Documented By: Admin: 01/06/24 08:08 Dose: 2 sprays Documented By: Admin: 01/05/24 09:22 Dose: 2 sprays Documented By: MINOO Dextrose/Sodium Chloride (D5w And 1/2nss) 1,000 mls @ 125 mls/hr IV .Q8H [facility] Stop: 01/08/24 10:59 Last Admin: 01/07/24 11:14 Dose: 125 mls/hr Documented By: MARTÍN Memantine (Memantine Hcl 10 Mg Tab) 10 mg PO BIDM [facility] Stop: 02/03/24 17:29 Last Admin: 01/05/24 09:21 Dose: 10 mg Documented By: Admin: 01/04/24 18:54 Dose: 10 mg Documented By: ADRIAN Midodrine (Midodrine Hcl 2.5 Mg Tab) 2.5 mg PO TIDM [facility] Stop: 02/03/24 17:44 Last Admin: 01/07/24 16:06 Dose: 2.5 mg Documented By: Admin: 01/07/24 12:37 Dose: 2.5 mg Documented By: Admin: 01/07/24 07:43 Dose: 2.5 mg Documented By: Admin: 01/06/24 16:40 Dose: 2.5 mg Documented By: Admin: 01/06/24 11:52 Dose: 2.5 mg Documented By: Admin: 01/06/24 08:06 Dose: 2.5 mg Documented By: Admin: 01/05/24 16:26 Dose: 2.5 mg Documented By: Admin: 01/05/24 12:03 Dose: 2.5 mg Documented By: Admin: 01/05/24 09:21 Dose: 2.5 mg Documented By: Admin: 01/04/24 18:54 Dose: 2.5 mg Documented By: ADRIAN Pantoprazole Sodium (Pantoprazole 40 Mg Tab) [facility] [place] [place] Stop: 02/04/24 08:59 Last Admin: 01/07/24 07:43 Dose: 40 mg Documented By: Admin: 01/06/24 08:07 Dose: 40 mg Documented By: Admin: 01/05/24 09:22 Dose: 40 mg Documented By: MINOO Prednisone (Prednisone 10 Mg Tablet) [facility] [place] [place] Stop: 02/04/24 08:59 Last Admin: 01/07/24 07:43 Dose: 10 mg Documented By: Admin: 01/06/24 08:08 Dose: 10 mg Documented By: Admin: 01/05/24 09:21 Dose: 10 mg Documented By: MINOO Sertraline HCl (Sertraline Hcl 50 Mg Tablet) 25 mg PO QPM [facility] Stop: 02/03/24 20:59 Last Admin: 01/06/24 19:58 Dose: 25 mg Documented By: Admin: 01/05/24 20:34 Dose: 25 mg Documented By: Admin: 01/04/24 20:09 Dose: 25 mg Documented By: MONA Trimethoprim/Sulfamethoxazole (Sulfamethoxazole/Trimethoprim Ds 800/160mg Tab) 1 tab PO MoWeFr [facility] Stop: 02/04/24 08:59 Last Admin: 01/07/24 07:43 Dose: 1 tab Documented By: Admin: 01/05/24 09:21 Dose: 1 tab Documented By: MINOO Umeclidinium/Vilanterol (Umeclidinium/Vilanterol 62.5/25mcg 7 Puffs/Inhaler) 1 puffs INH PM [facility] Stop: 02/03/24 20:59 Last Admin: 01/06/24 20:00 Dose: 1 puffs Documented By: Admin: 01/05/24 20:33 Dose: 1 puffs Documented By: Admin: 01/04/24 20:09 Dose: 1 puffs Documented By: NRR Discontinued Medications Acetaminophen (Acetaminophen 325 Mg Tab) 650 mg PO NOW STA Stop: 01/04/24 15:06 Last Admin: 01/04/24 15:26 Dose: 650 mg Documented By: DANIAL Acetaminophen (Acetaminophen 325 Mg Tab) 650 mg PO NOW STA Stop: 01/05/24 03:10 Last Admin: 01/05/24 03:53 Dose: 650 mg Documented By: BRANDONR Sodium Chloride (Nss) 500 mls @ 999 mls/hr IV .Q31M [facility] Stop: 01/04/24 11:00 Last Infusion: 01/04/24 11:58 Dose: Infused Documented By: Admin: 01/04/24 10:35 Dose: 999 mls/hr Documented By: CC Sodium Chloride (Nss) 1,000 mls @ 50 mls/hr IV .Q20H [facility] Stop: 01/05/24 03:49 Last Infusion: 01/05/24 03:55 Dose: Infused Documented By: Admin: 01/04/24 17:47 Dose: 100 mls/hr Documented By: ADRIAN Ampicillin Sodium/Sulbactam Sodium 3,000 mg/ Sodium Chloride 100 mls @ 200 mls/hr IV NOW STA Stop: 01/05/24 03:53 Last Infusion: 01/05/24 04:22 Dose: Infused Documented By: Admin: 01/05/24 03:49 Dose: 200 mls/hr Documented By: NRR Potassium Chloride/Sodium Chloride (Normal Saline W/20 Meq Kcl) 20 meq in 1,000 mls @ 100 mls/hr IV .Q10H [facility]; Protocol Stop: 01/06/24 20:29 Last Infusion: 01/06/24 18:17 Dose: Infused Documented By: Admin: 01/06/24 08:08 Dose: 100 mls/hr Documented By: Infusion: 01/06/24 08:08 Dose: Infused Documented By: Admin: 01/06/24 02:04 Dose: 100 mls/hr Documented By: Infusion: 01/06/24 02:04 Dose: Infused Documented By: Admin: 01/05/24 16:26 Dose: 100 mls/hr Documented By: MINOO Labetalol HCl (Labetalol Hcl Iv 5 Mg/Ml 20ml) 5 mg IV NOW STA Stop: 01/06/24 03:02 Last Admin: 01/06/24 03:12 Dose: 5 mg Documented By: MICKEY Co-signed By: BECKI Potassium Chloride (Potassium Chloride Crtab 20 Meq Tabcr) 40 meq PO NOW STA Stop: 01/05/24 09:25 Last Admin: 01/05/24 09:57 Dose: 40 meq Documented By: MINOO Imaging Data Radiologist's Impression: Chest X-Ray 01/04/24 10:28 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 Comparison: Comparison is made to chest radiographs 11/23/2023 FINDINGS: No lines and tubes are seen. Calcified aortic knob is seen. The lungs are clear. No evidence of pleural effusion or pneumothorax. IMPRESSION: No acute chest disease. ACT 112: Negative or not required by law. Electronically signed by: Alonso Fay M.D. 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 Comparison: Comparison is made to chest radiographs 11/23/2023 FINDINGS: No lines and tubes are seen. Calcified aortic knob is seen. The lungs are clear. No evidence of pleural effusion or pneumothorax. IMPRESSION: No acute chest disease. ACT 112: Negative or not required by law. Electronically signed by: Alonso Fay M.D. 01/04/2024 10:[address] 01/04/24 10:[address] DOSE: 625.8 mGy.cm HISTORY: R eye droop TECHNIQUE: Multiaxial CT images of the head were performed without the use of intravenous contrast. Automated exposure control was utilized for this study. A dose lowering technique was utilized adhering to the principles of ALARA. Comparison: Head CT 11/23/2023. Findings: Mild mucosal thickening and a small fluid level again noted within the left maxillary sinus. Trace fluid levels within the sphenoid sinuses, unchanged. The mastoid air cells are clear. Prior bilateral lens replacement. Otherwise, the orbits are unremarkable. The calvarium and skull base are intact. There is no mass, hematoma, midline shift, acute infarct. White matter hypodensity is nonspecific but suggestive of microvascular ischemic change. The ventricles and sulci demonstrate mild age-related involutional changes. Mild motion artifact. Impression: No significant change compared to the prior study. No acute intracranial abnormality. ACT 112: Negative or not required by law. Electronically signed by: Des Harrison M.D. 01/04/2024 11:42 AM Brain MRI 01/04/24 12:42 Brain MRI WITHOUT CONTRAST HISTORY: R sided ptosis TECHNIQUE: Multiplanar multisequence MRI of the brain was performed without the use of contrast. COMPARISON STUDY: Head CT 01/03/2024 brain MRI 02/03/2020. FINDINGS: There is no mass, hematoma, midline shift, or acute infarct. The paranasal sinuses are clear. The mastoid air cells are clear. The ventricles and sulci demonstrate mild age-related involutional changes. Scattered foci of T2 hyperintensity seen within the periventricular and subcortical white matter are nonspecific but suggestive of mild microvascular ischemic changes. The major vascular flow voids at the skull base are well-maintained. Prior bilateral lens replacement. Small fluid levels within the sphenoid sinuses and left maxillary sinus, unchanged. IMPRESSION: 1. No acute intracranial abnormality. 2. Scattered foci of T2 hyperintensity seen within the periventricular and subcortical white matter are nonspecific but favor microvascular ischemic change. ACT 112: Negative or not required by law. Electronically signed by: Des Harrison M.D. 01/04/2024 2:43 PM Discharge Plan Visit Data Chief Complaint: Neuro Symptoms/Deficit Stated Complaint: LOC x 1 minute; Neuro ED Provider: Deondre Roman Discharge Problem: Weakness, Ptosis, Syncope Patient Disposition: Admitted As Inpatient Discharge Instructions Interventions: ED Discharge Assessment Last Done: 01/04/24 16:05 Discharge Problem: Ptosis Qualifiers: Laterality: right Qualified Code(s): H02.401 - Unspecified ptosis of right eyelid Syncope Qualifiers: Syncope type: unspecified Qualified Code(s): R55 - Syncope and collapse
[2024-01-04] MEDS: SODIUM CHLORIDE 0.9% 500 ML IV SCH (10:35)
[2024-01-04 10:44] LABS: Basophils # (auto) 0.05 K/uL (0.00-0.20); Basophils % (auto) 0.4 %; Eosinophils # (auto) 0.02 K/uL (0.00-0.50); Eosinophils % (auto) 0.2 %; Hematocrit (blood only) 40.1 % (42.0-52.0); Hemoglobin 12.9 g/dl (14.0-18.0); Immature Granulocytes # (auto) 0.07 K/uL (0.01-0.20); Immature Granulocytes % (auto) 0.6 %; Lymphocytes # (auto) 1.54 K/uL (1.20-3.40); Lymphocytes % (auto) 12.9 %; Mean Corpuscular Hemoglobin 30.9 pg (25.0-34.0); Mean Corpuscular Hgb Conc 32.2 g/dL (32.0-36.0); Mean Corpuscular Volume 96.2 fL (80.0-100.0); Monocytes # (auto) 0.64 K/uL (0.11-0.59); Monocytes % (auto) 5.4 %; Neutrophils # (auto) 9.61 K/uL (1.40-6.50); Neutrophils % (auto) 80.5 %; Platelet Count 259 K/uL (130-400); RDW Coefficient of Variation 15.7 % (11.5-14.5); RDW Standard Deviation 55.8 fL (36.4-46.3); Red Blood Count 4.17 M/uL (4.70-6.10); White Blood Count 11.93 K/ul (4.8-10.8)
--- NOTE | 2024-01-04 10:59 | XRay Report ---
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 Comparison: Comparison is made to chest radiographs 11/23/2023 FINDINGS: No lines and tubes are seen. Calcified aortic knob is seen. The lungs are clear. No evidence of pleur al effusion or pneumothorax. IMPRESSION: No acute chest disease. ACT 112: Negative or not required by law. Electronically signed by: Alonso Fay M.D. 01/04/2024 10:56 AM
[2024-01-04 11:00] LABS: Albumin Globulin Ratio 1.5 (0.9-2); Albumin Level 3.5 gm/dl (3.4-5.0); BUN Creatinine Ratio 14.3 (10-20); Bilirubin,Total 0.4 mg/dl (0.2-1.0); Calcium 9.3 mg/dl (8.6-10.3); Creatinine Clr Calc Pharmacy 67.7 ml/min; Est GFR (African American) 67.9 ml/min; Est GFR (Non-African American) 58.6 ml/min; Globulin 2.3 gm/dl (2.5-4.0); Potassium 3.5 mmol/L (3.5-5.1); Total Protein 5.8 gm/dl (6.0-8.3)
[2024-01-04 11:07] LABS: Troponin I High Sensitivity 8.5 pg/ml (0-20)
--- NOTE | 2024-01-04 11:43 | CT Scan Report ---
HEAD CT NONCONTRAST CT DOSE: 625.8 mGy.cm HISTORY: R eye droop TECHNIQUE: Multiaxial CT images of the head were performed without the use of intravenous contrast. A utomated exposure control was utilized for this study. A dose lowering technique was utilized adheri ng to the principles of ALARA. Comparison: Head CT 11/23/2023. Findings: Mild mucosal thickening and a small fluid level again noted within the left maxillary sinus . Trace fluid levels within the sphenoid sinuses, unchanged. The mastoid air cells are clear. Prior b ilateral lens replacement. Otherwise, the orbits are unremarkable. The calvarium and skull base are i ntact. There is no mass, hematoma, midline shift, acute infarct. White matter hypodensity is nonspeci fic but suggestive of microvascular ischemic change. The ventricles and sulci demonstrate mild age-re lated involutional changes. Mild motion artifact. Impression: No significant change compared to the prior study. No acute intracranial abnormality. ACT 112: Negative or not required by law. Electronically signed by: Des Harrison M.D. 01/04/2024 11:42 AM
--- NOTE | 2024-01-04 13:24 | History & Physical Report ---
<Statement entered by Evangelist Marti, - 01/13/24 16:21> I have seen and examined the patient and have discussed the case with the provider above. I have reviewed the advanced practitioner's documentation, and I agree with, and take responsibility for that plan of care. Date of Service January 04, 2024 Assessment & Plan (1) Episode of unresponsiveness: (2) History of orthostatic hypotension: (3) Ambulatory dysfunction: Plan: Branden High is 78y/o M with PMHx of adrenal insufficiency on chronic steroids, bronchial asthma/COPD, ANDRZEJ, history of DVT/PE s/p IVC filter placement (no longer anticoagulated due to bleeding issues), bladder cancer s/p surgery [ off Keytruda secondary to development of myocarditis], prostate cancer s/p radiation therapy, valvular heart disease (moderate , mild AR)/cerebrovascular disease, HTN, orthostatic hypotension, chronic anemia, mild cognitive impairment/dementia, ambulatory dysfunction, urinary incontinence, chronic venous insufficiency, CKD stage III and other problems listed below who presented to the ED via EMS for further medical evaluation following an episode of unresponsiveness w/ associated right eye drooping which has since resolved. Of note, patient was most recently hospitalized from 11/23/23 to 12/09/23 following presentation to the ED for evaluation of generalized weakness and subsequent fall. Hospital course was significant for the treatment of an acute UTI w/ 7-day course of IV ampicillin. Urine culture at that time grew Enterococcus faecalis. Patient was also found to have an VIOLETA (creatinine of 1.4) on admission, which resolved throughout the hospital stay. Head CT at that time showed no acute finding. Patient did have to receive midodrine during admission for orthostatic hypotension and was D/C on midodrine 10 mg p.o. 3 times daily. Patient was also recorded to have a stage II sacral pressure ulcer prior to that admission [wound care was on board during his hospital stay] and subsequently Devlin cath had to be placed d/t baseline urinary incontinence during the hospital course. He was d/c to [facility] and returned home on December 23. Chest x-ray performed in the ED showed no acute disease process. Head CT performed in ED showed no acute intracranial abnormality. Of note, patient has a SEVERE allergy to contrast dye. Brain MRI performed in the ED revealed no acute intracranial abnormality. It was noted that he had scattered foci of T2 hyperintensity seen within the periventricular and subcortical white matter, which are nonspecific but according to documentation favor microvascular ischemic change. EKG interpreted by Duke Wolf MD. EKG displayed the following: NSR with HR of 69 bpm, FL interval of 160 ms and QT/QTc interval of 386/413 ms. Lyme disease screen was negative in the ED. Patient has been seeing [facility] home health for PT at home since being d/c from [facility]. -Routine neurology consult ordered, appreciate their input/recommendations. -Continuous cardiac monitoring in place, PT/OT consults ordered. -Continue midodrine for now, orthostatics ordered QS. -Bowel regimen in place, continue w/ 1L of NSS upon transfer. (4) Elevated white blood cell count: Plan: Lab results in the ED showed an elevation in WBC count of 11.93 (? may be d/t chronic steroid therapy). UA not ordered in the ED. -Will order UA to r/o any possibility of UTI. Patient is currently on 3x/weekly dosing of Bactrim for PJP prophylaxis. (5) Acute oral pain: Plan: Patient was given 2 doses of Tylenol [totaling 1300 mg] in the ED w/ relief. -CT face ordered to assess for any determinate cause of left-sided jaw pain (? may be oral abscess contributing to his pain and elevated WBC count). (6) Adrenal insufficiency: (7) Immunosuppression due to chronic steroid use: Plan: Patient currently on chronic prednisone therapy [10mg po QAM --> appears to be his baseline dosage according to prior documentation]. Per previous d/c summary, further tapering was deferred to outpatient endocrine f/u [per previous oncology recommendation to do so during last hospital stay]. Patient did NOT f/u with endocrinology prior to his arrival to the ED today. However, an appointment w/ Dr. Iglesias [[facility]] is scheduled for 01/13/24. -Continue prednisone therapy while hospitalized, may consider endocrinology consult for further guidance. -Continue Bactrim (3x/week dosing) for PJP prophylaxis while hospitalized. (8) History of hematuria: (9) Urinary incontinence: Plan: Patient did meet w/ Dr. Villareal [[facility]] on 12/14/23 for evaluation of gross hematuria following Devlin catheter exchange at [facility]. It was determined that the hematuria was more than likely the result of traumatic Devlin placement and friable bladder mucosa. Patient is scheduled to undergo cystoscopy with Dr. Villareal at the end of next month. -Devlin catheter still in place, monitor I&O's (10) Sacral pressure sore: Plan: Non-blanching sacral erythema present; however, no open wound was seen on examination. -Wound care consult placed, appreciate their input/recommendations. (11) History of DVT (deep vein thrombosis): (12) History of pulmonary embolism: (13) S/P IVC filter: Plan: Not currently on anticoagulation therapy d/t hx of radiation-induced cystitis per chart review. -Patient placed on aspirin 81mg daily and atorvastatin 40mg daily per Dr. Marti's recommendation given patient's hx. 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 Had received multiple rounds of radiation therapy for prostate cancer many years ago. -Patient follows with [facility] [Dr. Xavi Gramajo] in the outpatient setting. He is scheduled to return to the heme/onc clinic in March. (17) Chronic anemia: Plan: Patient did meet w/ Dr. Xavi Gramajo [[facility]] on 12/15/23 for f/u after his most recent hospitalization. Vit B12, folic acid, ferritin and iron panel were conducted at that time. All of those labs came back w/in normal ranges, therefore he did not require intravenous iron therapy. As per above, he is scheduled to return to the heme/onc clinic in March. -Will repeat vit B12, folate, ferritin and iron panel in the AM. -Continue RADIO ELECTRICIAN ferrous sulfate, vit B12 (18) Stage 3 chronic kidney disease: Plan: Creatinine of 1.19 in the ED, appears to be at baseline. -Monitor for any acute changes in renal function throughout hospital stay. (19) Asthma: (20) COPD (chronic obstructive pulmonary disease): Plan: -Continue Trelegy, PRN albuterol inhaler (21) Mild cognitive impairment: (22) Tremor observed on examination: Plan: Per Dr. aMrti, physical examination raised concern for potential Parkinson's disease (?). Dr. Marti mentioned that the patient displayed classic cogwheel rigidity during his examination. -As per above, routine neurology consult has been placed. Will appreciate their input regarding these examination findings. -Monitor for any signs of delirium during hospital stay. -Continue memantine, donepezil and sertraline. (23) GERD (gastroesophageal reflux disease): Plan: -Continue RADIO ELECTRICIAN omeprazole DVT Prophylaxis: SCDs Code Status: Full Code PCP: Deondre Hill MD Dispo: Admit to Med/Surg w/ Telemetry Patient seen in collaboration with Dr. Marti. Please see his addendum for further recommendations regarding medical management of this patient. I spent a total of 75 minutes coordinating, documenting, and providing care for this patient excluding time spent in the performance of separately billed services. This included personally reviewing all current laboratories and imaging studies, medical reconciliation, outpatient chart review and discussion with specialists. History of Present Illness Chief Complaint: Episode of Unresponsiveness Primary Care Provider: Deondre Hill MD Branden High is 78y/o M with PMHx of adrenal insufficiency on chronic steroids, bronchial asthma/COPD, ANDRZEJ, history of DVT/PE s/p IVC filter placement (no longer anticoagulated due to bleeding issues), bladder cancer s/p surgery [ off Keytruda secondary to development of myocarditis], prostate cancer s/p radiation therapy, valvular heart disease (moderate , mild AR), HTN, orthostat ic hypotension, chronic anemia, mild cognitive impairment/dementia, ambulatory dysfunction, urinary incontinence, chronic venous insufficiency, CKD stage III and other problems listed below who presented to the ED via EMS for further medical evaluation following an episode of unresponsiveness w/ associated right eye drooping which has since resolved. Patient seen at bedside, present in the room and provides most of the history. Additional history obtained from the patient and associated ED/hospital/PCP/specialist records. Of note, patient was most recently hospitalized from 11/23/23 to 12/09/23 following presentation to the ED for evaluation of generalized weakness and subsequent fall. Hospital course was significant for the treatment of an acute UTI w/ 7-day course of IV ampicillin. Urine culture at that time grew Enterococcus faecalis. Patient was also found to have an VIOLETA (creatinine of 1.4) on admission, which resolved throughout the hospital stay. Head CT at that time showed no acute finding. Patient did have to receive midodrine during admission for orthostatic hypotension and was d/c on midodrine 10 mg p.o. 3 times daily. Patient was known to have orthostatic hypotension prior to his previous admission. Patient was also recorded to have a stage II sacral pressure ulcer during that admission [ wound care was on board during his hospital stay] and subsequently a Devlin cath had to be placed d/t baseline urinary incontinence during the hospital course. He was d/c to [facility] and returned home on December 23. reports that the patient had a brief episode of unresponsiveness after being transferred out of the car onto the seat attached his walker upon arrival to a scheduled dentist appointment this morning. states the episode lasted approximately 1 minute during which that time his eyes appeared to be "glazed over" and "rolling back into his head." Patient reports that he does not remember this event occurring. denies any seizure-like activity, but does endorse some right eye drooping during that episode that has since resolved. Patient denies any chest pain, SOB, headaches, lightheadedness/dizziness or any recent falls. Patient reports lack of appetite since being home from SNF. reports inadequate fluid intake at home, but denies any dario decrease in his urinary output. reports that he has been urinating approximately 2 L/day since being home from SNF. does report that he has gradually lost approximately 20 pounds since the beginning of this year. Patient does ambulate with a walker at home and has a hospital bed that remains on the first floor of their house so that he has access to the restroom if need be. Patient does report that he has a bedside commode at home, but has been dealing with bowel incontinence issues for the past few months. He wears an incontinence diaper daily at baseline. reports frequent changes of his incontinence diaper, as she is his primary fuel pilot engineer at home. Patient reports that it can be hard to decipher whether he is having a bowel movement or passing gas at times d/t both events having similar physical cues. More often than not, he is having a bowel movement in his incontinence diaper rather than in the bedside commode. Patient does report some generalized lethargy and weakness, which have been ongoing since his last admission. Additionally, he has had some left-sided oral pain for the past week that he has been treating with [id number] Tylenol at home. Unfortunately, patient was unable to see his dentist this morning for this issue d/t the episode of unresponsiveness in the parking lot of the dental office. Of note, patient was given oral Tylenol and 500 mL of NSS in the ED. Patient currently reports 3/10 pain. Allergies Allergy/AdvReac Type Severity Reaction Status Date / Time Iodinated Contrast Media Allergy Severe LOVERSOL---CARDIAC Verified 01/04/24 15:[address] CONTRAST clindamycin Allergy Intermediate Rash Verified 01/04/24 15:42 chocolate flavor AdvReac Severe DIARRHEA/ Verified 01/04/24 15:42 Cannot take, interacts w/ medications. cranberry AdvReac Severe Cannot Verified 01/04/24 15:42 take, interacts w/ medications. pembrolizumab [From FONU2] AdvReac Intermediate myocarditis Verified 01/04/24 15:42 Home Medications Medication Instructions Recorded Confirmed Type donepezil 10 mg tablet 10 mg PO QAM 04/13/22 01/04/24 History ascorbic acid (vitamin C) 1,000 mg 1,000 mg PO QAM 08/27/22 01/04/24 History tablet (Vitamin C) epinephrine 0.3 mg/0.3 mL 0.3 mg IM DIRECTED PRN 11/30/22 01/04/24 History injection, auto-injector anaphylaxis fluticasone fur. 200 mcg-umeclid 1 inh inhalation QPM 12/12/22 01/04/24 History 62.5 mcg-vilant 25 mcg inhalat.powder (Trelegy Ellipta) fluticasone propionate 50 2 spray intranasal DAILY 12/12/22 01/04/24 History mcg/actuation nasal spray,suspension ferrous sulfate 325 mg (65 mg 325 mg PO QAM 04/07/23 01/04/24 History iron) tablet,delayed release acetaminophen 325 mg tablet 650 mg PO Q4H PRN PAIN/FEVER 10/09/23 01/04/24 History (Tylenol) multivitamin with minerals-folic 1 tab PO QAM 10/09/23 01/04/24 History acid 200 mcg chewable tablet (Multivitamin Gummies) omeprazole 20 mg capsule,delayed 20 mg PO QAM 10/09/23 01/04/24 History release sennosides 8.6 mg-docusate sodium 1 tab-cap PO DAILY PRN Constipation 10/09/23 01/04/24 History 50 mg tablet (Senna Plus) albuterol sulfate 90 mcg/actuation 2 puff inhalation Q6 PRN Shortness 11/23/23 01/04/24 History aerosol inhaler Of Breath Or Wheezing cholecalciferol (vitamin D3) 125 125 mcg PO QAM 11/23/23 01/04/24 History mcg (5,000 unit) tablet memantine 10 mg tablet 10 mg PO BIDM 11/23/23 01/04/24 History cyanocobalamin (vitamin B-12) 1,000 mcg PO QAM 01/04/24 01/04/24 History 1,000 mcg tablet (Vitamin B-12) midodrine 2.5 mg tablet 2.5 mg PO TID 01/04/24 01/04/24 History prednisone 10 mg tablet 10 mg PO QAM 01/04/24 01/04/24 History sertraline 25 mg tablet 25 mg PO QPM 01/04/24 01/04/24 History sulfamethoxazole 800 1 tab PO 3XWK 01/04/24 01/04/24 History mg-trimethoprim 160 mg tablet vitamin E 400 unit tablet 45 mg PO QAM 01/04/24 01/04/24 History Past Med/Surg History Problem List (Updated 01/04/24 @ 22:43 by Bess Crandall PA-C) Sacral pressure sore History of hematuria Chronic anemia GERD (gastroesophageal reflux disease) Tremor observed on examination Mild cognitive impairment COPD (chronic obstructive pulmonary disease) Asthma Elevated white blood cell count Acute oral pain History of myocarditis History of prostate cancer History of bladder cancer Immunosuppression due to chronic steroid use History of orthostatic hypotension Urinary incontinence Episode of unresponsiveness Hx of prostatic malignancy ~ 2013- s/p Lupron and XRT Elevated lactic acid level (Acute) Non-ST elevation MD (NSTEMI) (Acute) Acute UTI (urinary tract infection) (Acute) Ambulatory dysfunction (Acute) Generalized weakness (Acute) Myocarditis Dementia Elevated liver function tests Weakness Elevated troponin (Acute) Acute blood loss anemia Primary bladder malignant neoplasm Hematuria (Acute) Urinary frequency Acute middle ear effusion (Acute) Fall (Acute) Cerumen impaction Orthostatic hypotension Orthostatic lightheadedness History of acute renal failure SOB (shortness of breath) (Acute) Coagulopathy (Acute) Acute urinary retention (Acute) Anemia (Acute) Hematuria (Acute) Dyspnea Preprocedural cardiovascular examination performed Urethral stricture Hematuria Encounter for pre-operative examination Incontinence Hx of blood clots Heart attack History of back problems Tongue discoloration Coated tongue group home current use of anticoagulant (Chronic) Prostate cancer DVT prophylaxis Asthma AMS (altered mental status) Cellulitis (Acute) Dietary counseling and surveillance Obesity (Chronic) Obstructive sleep apnea (Acute) Adrenal insufficiency (Acute 06/04/14) Bladder cancer (Acute) S/P IVC filter Weakness (Acute) Mild cognitive impairment, so stated Anemia (Acute) (06/25/23)to start receiving iron infusions Prostate cancer (12/22/13) "Positive family history of prostate cancer Rising PSA to 6.54 Status post ultrasound-guided biopsies 12/22/2013 revealing adenocarcinoma Negley 3+4 Status post TURP 04/23/2014 benign tissue Status post repeat biopsy 07/19/2015 3+3, and 3+4 4+3 Status post repeat biopsy 03/06/2016 3+4, 4+3 and 4+4 Initiation of hormonal suppression 07/21/2016 with Lupron 30 mg. Plan for 18 months of hormonal suppression Status post completion of radiation therapy 10/09/2016 received 8040 cGy" On 05/20/16 11:31 Hilda Montemayor wrote "Positive family history of prostate cancer Rising PSA to 6.54 Status post ultrasound-guided biopsies 12/22/2013 revealing adenocarcinoma Jose 3+4 Status post TURP 04/23/2014 benign tissue Status post repeat biopsy 07/19/2015 3+3, and 3+4 4+3 Status post repeat biopsy 03/06/2016 3+4, 4+3 and 4+4" DVT (deep venous thrombosis) Stage 3 chronic kidney disease (Acute) History of pulmonary embolism hx "many years ago" unknown etiology History of DVT (deep vein thrombosis) hx "many years ago" unknown etiology acute on chronic DVT during 12/2022 [facility] admission- Coumadin d/c'ed due to anemia and hematuria; IVC filter placed 12/28/22 Venous insufficiency (chronic) (peripheral) (Acute) COPD (chronic obstructive pulmonary disease) (Chronic) well controlled. uses Breo daily with exercise Ascending aorta dilation Mild- 4.4cm per 11/2022 ECHO Aortic stenosis Mild per 12/2022 ECHO -follows annually with cardiology Medical History (Updated 01/04/24 @ 22:43 by Bess Crandall PA-C) History of recent blood transfusion Radiation cystitis Kidney stones x1 episode. no surgery needed. 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 Benign prostatic hyperplasia Contrast media allergy Hiatal hernia Surgical History S/P cataract extraction History of right cataract extraction History of colonoscopy H/O sinus surgery History of appendectomy S/P TURP (status post transurethral resection of prostate) Status post cystoscopy (11/07/13) Family History Father Prostate cancer Brother Prostate cancer Mother Thyroid cancer Cancer Other No family history of adverse response to anesthesia Social History Smoking Status: Never smoker Tobacco Type: Cigarettes Second Hand Exposure: No; Do You Dip or Chew Tobacco: No; Hx Alcohol Use: Yes Alcohol type: beer Alcohol Intake Frequency: Monthly or Less Hx Substance Use: No Preferred Language: Slovenian Communication Ability: Effective Visual Impairment: Limited Hearing Ability: Normal Radiotelephone Technical Operator Required: No Beliefs That Will Affect Care: None marital status: Current Living Situation: Spouse Current Living Situation Comment: at home with current occupational status: retired How many Children do You have: 0 Feels Safe at Home: Yes Safety Concerns: Feels Safe At This Time Diet: regular during the past year weight has: decreased > 10 lbs Seatbelt Use: always Do you think of yourself as: straight/heterosexual Gender Identity: Male Assistive Devices: CPAP, Glasses, Walker and Wheelchair Review of Systems Review of Systems: At least ten systems reviewed and negative, except as noted in the HPI. Physical Exam Physical Exam: General Appearance: WD/WN, vitals as above, NAD, laying in bed, pleasant, conversing appropriately. Head: Normocephalic, atraumatic. Eyes: Normal inspection, PERRL, conjunctivae normal, anicteric sclerae. ENT: External ear and nose normal, oropharynx normal. Moist mucous membranes, grossly normal dentition. No overt dental abscess noted on examination. Neck: Normal visual inspection, trachea midline, no thyromegaly. Respiratory: Normal respiratory effort, lungs clear to auscultation, no wheeze, rales, rhonchi. No accessory muscle use. Cardiovascular: Regular rate, rhythm, no murmur, normal peripheral pulses, mild BLE +1 edema. Vessels: No JVD. Chest: Normal inspection of chest. Abdomen/GI: Normal bowel sounds, soft, nontender, no hepatosplenomegaly. : Devlin catheter in place, appears to be draining well. Extremities/Musculoskeletal: No cyanosis or clubbing, extremities motor strength 5/5. Onychomycosis of multiple nails on both feet. Evidence of previous right second toenail noted. Neurologic: PERRL, EOMI, accommodation nl, no face palsy, no dysarthria, CN's II-XI grossly intact bilaterally and moves all extremities. No sensory deficits. Tremor noted at rest and with UE movement. Psychiatric: A+Ox3, euthymic affect. Skin: Erythema present in the sacral area, skin in that region appears intact. Chronic venous changes of RLE. Results & Data Results & Data Vital Signs (Past 12 Hours) Vital Signs Temp Pulse Pulse Resp BP BP Pulse Ox 01/04/24 12:47 70 18 156/94 H 96 01/04/24 10:33 65 01/04/24 10:33 68 18 167/95 H 98 01/04/24 09:56 36.7 C 69 18 167/95 H 99 O2 Del Method 01/04/24 12:47 Room Air 01/04/24 10:33 01/04/24 10:33 Room Air 01/04/24 09:56 Room Air Laboratory Results Short CBC 01/04/24 Range/Units 09:59 WBC 11.93 H (4.8-10.8) K/ul Hgb 12.9 L (14.0-18.0) g/dl Hct 40.1 L (42.0-52.0) % Plt Count 259 (130-400) K/uL BMP 01/04/24 09:59 Sodium 139 Potassium 3.5 Chloride 103 Carbon Dioxide 27 BUN 17 Creatinine 1.19 Glucose 136 H Calcium 9.3 Liver Function 01/04/24 Range/Units 09:59 Total Bilirubin 0.4 (0.2-1.0) mg/dl AST 9 L (13-39) U/L ALT 10 (7-52) U/L Alkaline Phosphatase 60 (34-104) U/L Albumin 3.5 (3.4-5.0) gm/dl Diagnostic Findings Chest X-Ray 01/04/24 10:28 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 Comparison: Comparison is made to chest radiographs 11/23/2023 FINDINGS: No lines and tubes are seen. Calcified aortic knob is seen. The lungs are clear. No evidence of pleural effusion or pneumothorax. IMPRESSION: No acute chest disease. ACT 112: Negative or not required by law. Electronically signed by: Alonso Fay M.D. 01/04/2024 10:[address] 01/04/24 10:[address] DOSE: 625.8 mGy.cm HISTORY: R eye droop TECHNIQUE: Multiaxial CT images of the head were performed without the use of intravenous contrast. Automated exposure control was utilized for this study. A dose lowering technique was utilized adhering to the principles of ALARA. Comparison: Head CT 11/23/2023. Findings: Mild mucosal thickening and a small fluid level again noted within the left maxillary sinus. Trace fluid levels within the sphenoid sinuses, unchanged. The mastoid air cells are clear. Prior bilateral lens replacement. Otherwise, the orbits are unremarkable. The calvarium and skull base are intact. There is no mass, hematoma, midline shift, acute infarct. White matter hypodensity is nonspecific but suggestive of microvascular ischemic change. The ventricles and sulci demonstrate mild age-related involutional changes. Mild motion artifact. Impression: No significant change compared to the prior study. No acute intracranial abnormality. ACT 112: Negative or not required by law. Electronically signed by: Des Harrison M.D. 01/04/2024 11:42 AM Brain MRI 01/04/24 12:42 Brain MRI WITHOUT CONTRAST HISTORY: R sided ptosis TECHNIQUE: Multiplanar multisequence MRI of the brain was performed without the use of contrast. COMPARISON STUDY: Head CT 01/03/2024 brain MRI 02/03/2020. FINDINGS: There is no mass, hematoma, midline shift, or acute infarct. The paranasal sinuses are clear. The mastoid air cells are clear. The ventricles and sulci demonstrate mild age-related involutional changes. Scattered foci of T2 hyperintensity seen within the periventricular and subcortical white matter are nonspecific but suggestive of mild microvascular ischemic changes. The major vascular flow voids at the skull base are well-maintained. Prior bilateral lens replacement. Small fluid levels within the sphenoid sinuses and left maxillary sinus, unchanged. IMPRESSION: 1. No acute intracranial abnormality. 2. Scattered foci of T2 hyperintensity seen within the periventricular and subcortical white matter are nonspecific but favor microvascular ischemic change. ACT 112: Negative or not required by law. Electronically signed by: Des Harrison M.D. 01/04/2024 2:43 PM Medications Administered Discontinued Medications Acetaminophen (Acetaminophen 325 Mg Tab) 650 mg PO NOW STA Stop: 01/04/24 15:06 Last Admin: 01/04/24 15:26 Dose: 650 mg Documented By: MMG Sodium Chloride (Nss) 500 mls @ 999 mls/hr IV .Q31M TAWNY Stop: 01/04/24 11:00 Last Infusion: 01/04/24 11:58 Dose: Infused Documented By: Admin: 01/04/24 10:35 Dose: 999 mls/hr Documented By: CC ECG Additional Comments: EKG interpreted by Duke Wolf MD. EKG displayed the following: NSR with HR of 69 bpm, FL interval of 160 ms and QT/QTc interval of 386/413 ms. Code Status & VTE Plan Code Status FULL CODE (4) Elevated white blood cell count Leukocytosis type: unspecified Qualified Code(s): D72.829 - Elevated white blood cell count, unspecified (9) Urinary incontinence Urinary Incontinence type: unspecified incontinence Qualified Code(s): R32 - Unspecified urinary incontinence (10) Sacral pressure sore Pressure injury stage: stage 1 Qualified Code(s): L89.151 - Pressure ulcer of sacral region, stage 1 (18) Stage 3 chronic kidney disease Chronic kidney disease stage 3 subtype: unspecified whether 3a or 3b Qualified Code(s): N18.30 - Chronic kidney disease, stage 3 unspecified (19) Asthma Asthma complication type: unspecified Asthma persistence: unspecified Asthma severity: unspecified severity Qualified Code(s): J45.909 - Unspecified asthma, uncomplicated (20) COPD (chronic obstructive pulmonary disease) COPD type: unspecified COPD Qualified Code(s): J44.9 - Chronic obstructive pulmonary disease, unspecified (23) GERD (gastroesophageal reflux disease) Esophagitis presence: esophagitis presence not specified Qualified Code(s): K21.9 - Gastro-esophageal reflux disease without esophagitis
--- NOTE | 2024-01-04 14:44 | Magnetic Resonance Report ---
Brain MRI WITHOUT CONTRAST HISTORY: R sided ptosis TECHNIQUE: Multiplanar multisequence MRI of the brain was performed without the use of contrast. COMPARISON STUDY: Head CT 01/03/2024 brain MRI 02/03/2020. FINDINGS: There is no mass, hematoma, midline shift, or acute infarct. The paranasal sinuses are simran r. The mastoid air cells are clear. The ventricles and sulci demonstrate mild age-related involutiona l changes. Scattered foci of T2 hyperintensity seen within the periventricular and subcortical white matter are nonspecific but suggestive of mild microvascular ischemic changes. The major vascular flow voids at the skull base are well-maintained. Prior bilateral lens replacement. Small fluid levels wi thin the sphenoid sinuses and left maxillary sinus, unchanged. IMPRESSION: 1. No acute intracranial abnormality. 2. Scattered foci of T2 hyperintensity seen within the periventricular and subcortical white matter a re nonspecific but favor microvascular ischemic change. ACT 112: Negative or not required by law. Electronically signed by: Des Harrison M.D. 01/04/2024 2:43 PM
[2024-01-04] MEDS: ACETAMINOPHEN 325 MG TAB PO STA (15:26)
--- NOTE | 2024-01-04 16:14 | Electrocardiogram Report ---
Test Reason : Blood Pressure : / mmHG Vent. Rate : 069 BPM Atrial Rate : 069 BPM P-R Int : 160 ms QRS Dur : 084 ms QT Int : 386 ms P-R-T Axes : 041 032 061 degrees QTc Int : 413 ms Normal sinus rhythm Normal ECG When compared with ECG of 23-NOV-2023 16:37, No significant change was found Confirmed by Duke Wolf ([id number]) on 01/04/2024 4:13:35 PM Referred By: REFERRED SELF Confirmed By:Duke Wolf
[2024-01-04] MEDS ORDERED: POLYETHYLENE (MIRALAX) 17 GM PACK PO PRN (17:30)
[2024-01-04] MEDS ORDERED: DOCUSATE SODIUM/SENNA 50/8.6MG TAB PO PRN (17:30)
[2024-01-04] MEDS ORDERED: ALBUTEROL HFA 8 GM INHALER INH PRN (17:30)
[2024-01-04] MEDS ORDERED: ALUMINUM/MAGNESIUM SUSP 30 ML UDC PO PRN (17:30)
[2024-01-04] MEDS ORDERED: MAGNESIUM HYDROXIDE SUSP 30 ML UDC PO PRN (17:30)
[2024-01-04] MEDS: SODIUM CHLORIDE 0.9% 1,000 ML IV SCH (17:47)
[2024-01-04] MEDS: MEMANTINE HCL 10 MG TAB PO SCH (18:54)
[2024-01-04] MEDS: MIDODRINE HCL 2.5 MG TAB PO SCH (18:54)
[2024-01-04] MEDS: UMECLIDINIUM/VILANTEROL 62.5/25MCG 7 PUFFS/INHALER INH SCH (20:09)
[2024-01-04] MEDS: SERTRALINE HCL 50 MG TABLET PO SCH (20:09)
[2024-01-04] MEDS: FLUTICASONE FUROATE 200MCG 14 PUFFS/INHALER INH SCH (20:10)
--- OUTSIDE RECORDS SUMMARY | 2024-01-04 20:43 | External Medical Summary | Summary of Care ---
Author Name Unknown Organization [facility] Address [address] [place] [address] Phone [phone] Care Team Providers Care Cmo Name Role Phone Chuy Batista MD Primary Care Provider [phone] Reason for Visit * Reason Onset Date Comments Appointment 01/03/2024 Encounter Details Date Type Department Care Team (Late st Contact Info) Description 01/03/2024 Telephone [facility] [place] [address] [place] [address] Aneudy Iglesias MD [address] [place] [address] Appointment Allergies Active Allergy Reactions Criticality Noted Date Comments Chocolate Diarrhea 05/14/2023 Chocolate Flavor High 10/09/2023 Other Reaction(s): DIARRHEA/ Cannot take, interacts w/ medications. Clindamycin Hcl 09/24/2005 rash Cranberry 10/20/2023 Iodinated Contrast Media 10/01/2015 Ioversol Other (Please comment) High 08/10/[address] IV DYE Pembrolizumab High 10/10/2023 Other Reaction(s): myocarditis documented as of this encounter (statuses as of 01/03/2024) Medications Medication Sig Dispensed Refills Start Date End Date Status Syringe/Needle, Disp, 25G X 1-1/2" 3 ML MISC To use with injection of hydrocortisone if needed 2 Each 5 08/31/2015 Active Additional Information Patient not taking.Reported on 12/27/2023 Fluticasone Propionate 50 MCG/ACT Nasal Suspension (Flonase) SPRAY 2 SPRAYS INTO EACH NOSTRIL IN THE MORNING 16 mL 3 10/17/2022 Active Trelegy Ellipta 200-62.5-25 MCG/ACT Aerosol Powder Breath Activated (Fluticasone-Umec lidinium-Vilanter ol) Inhale 1 Puff by mouth every evening. 60 Blister Dosing Unit 11 10/26/2022 Active EpiPen 2-Pedro 0.3 MG/0.3ML Injection Solution Auto-injectorIndi cations:Anaphylax is, sequela USE DIRECTED 1 Each 01/27/2023 Active Multi Adult Gummies Oral Tablet Chewable Take by mouth. Activ e Vitamin D 125 MCG (5000 UT) Oral Capsule Take by mouth. Active Iron 325 (65 Fe) MG Oral Tablet Take 1 Tablet by mouth in the morning. Active Acetaminophen 325 MG Oral Capsule Take 650 mg by mouth every 4 hours as needed for Pain (fever or pain). Active Ascorbic Acid 500 MG Oral Tablet Take 2 Tablets by mouth every morning. Active Ipratropium-Albut emily 0.5-2.5 (3) MG/3ML Inhalation Solution (Duoneb) Inhale 3 mL by mouth every 6 hours as needed. Active Sulfamethoxazole- Trimethoprim 800-160 MG Oral Tablet (Bactrim DS)Indications:Ur othelial carcinoma of bladder (HCC),Other acute myocarditis 1 tablet 3 days a week ( Wednesday, Wednesday, Wednesday). 36 Tablet 10/07/2023 Active Docusate Sodium 100 MG Oral Capsule (Colace) Take 1 Capsule by mouth in the morning and 1 Capsule before bedtime. Active Bisacodyl 10 MG Rectal Suppository (Dulcolax) Administer 1 Suppository into the rectum in the morning. Active polyethylene glycol 3350 119 gram OR POWD Take 119 g by mouth once. Active busPIRone HCl 5 MG Oral Tablet (Buspar)Indicatio ns:Adjustment disorder with mixed anxiety and depressed mood Take 0.5 Tablets by mouth in the morning and 0.5 Tablets at noon and 0.5 Tablets before bedtime. 45 Tablet 11/04/2023 Active Midodrine HCl 2.5 MG Oral Tablet (Proamatine)Indic ations:Orthostati c hypotension Take 1 Tablet by mouth 3 times a day. Take at 8 am, noon, 4 pm 90 Tablet 11/04/2023 Active Donepezil HCl 10 MG Oral [...] of buttocks. 88 mL 3 11/12/2023 Active predniSONE 20 MG Oral Tablet (Deltasone)Indica tions:Urothelial carcinoma of bladder (HCC),Other acute myocarditis TAKE 4 TABLETS BY MOUTH EVERY MORNING WITH FOOD 120 Tablet 1 11/26/2023 Active ProAir HFA 108 (90 Base) MCG/ACT Inhalation Aerosol Solution Inhale 2 Puffs by mouth as needed. Active B Complex Oral Capsule Take 1 Capsule by mouth in the morning. Active documented as of this encounter (statuses as of 01/03/2024) Active Problems Problem Noted Date Diagnosed Date [...] as of this encounter (statuses as of 01/03/2024) Resolved Problems Problem Noted Date Diagnosed Date [...] as of this encounter (statuses as of 01/03/2024) Immunizations Name Administration Dates Next Due COVID-19 [...] occasion? Never 09/10/2023 PHQ-2 Answer Date Recorded PHQ Adult Total Score 0 12/27/2023 Hunger Vital Sign Answer Date Recorded Within the past 12 months, y ou worried that your food would run out before you got the money to buy more. Patient declined Within the past 12 months, t he food you bought just didn't last and you didn't have money to get more. Patient declined Sex and Gender Information Value Date Recorded Sex Assigned at Male 01/31/2019 8:25 AM EDT Gender Identity Male 01/31/2019 8:25 AM EDT Sexual Orientation Straight 12/27/2023 10 :34 AM EDT Job Start Date Occupation Industry Not on [...] encounter Miscellaneous Notes * Telephone Encounter - Hanna Carrasco OSA - 01/03/2024 10:20 AM EDT Called pt, spoke to pt's spouse and scheduled pt appt documented in this encounter Plan of Treatment Upcoming Encounters Date Type Department Care Team (Late st Contact Info) Description 01/04/2024 1:00 PM EDT Office Visit Podiatry [facility] [address] [place] [place] [address] Damari Norman DPM [address] [place] [address] 01/13/2024 9:00 AM EDT Telemedicine Endocrinology, [place] [address] [place], [place] [id number] Aneudy Iglesias MD [address] [place] [address] 01/20/2024 3:00 PM EDT Office Visit Cardiology, [facility] [address] [place] [place] [address] Skye Gonzales CRNP [address] [place] [address] 02/07/2024 10:15 AM EDT Procedure Only Urology, [place] [address] [place] [address] Ernesto Villareal MD [address] [place] [address] 02/10/2024 7:15 AM EDT Cardiac Studies Cardiac Studies, [facility] [address] [facility] [place] [address] 04/12/2024 2:15 PM EDT Office [facility] [address] [place] [id number] Xavi Gramajo MD [address] [place] [address] 04/21/2024 2:40 PM EDT Office Visit [facility] [address] [place] [address] Chuy Batista MD [address] [place] [address] 06/28/2024 2:30 PM EST Office Visit Otolaryngology [facility] [address] [place] [address] Dioni Jean-Baptiste DO [address] [place] [address] Health Maintenance Due Date Last Done Comments Albumin/Creatinine Ratio 1963 DTaP,Tdap,and Td Vaccines (1 - Tdap) 1964 COVID-19 Vaccine ( season) 2023 07/22/2022, 07/22/2022, 02/11/2022, Additional history exists Influenza Vaccine (FLU shot) (Season Ended) 2024 05/29/2022, 05/27/2021, 06/13/2020, Additional history exists GFR 05/14/2024 11/12/2023, 10/15, 10/25/2023, Additional history exists CKD PHOS USE SMARTSET 39476 09/11/202408/17, 09/11/2023, 07/14/2021, Additional history exists CKD HGB USE SMARTSET 24653 12/12/202412/12, 11/12/2023, 11/12/2023, Additional history exists Depression Screening 12/26/2024 12/27/2023 Pneumococcal Vaccine: 65+ Years Completed 09/24/2020, 07/06/2012 [...] filedocumented as of this encounter Advance Directives * Full Code (Latest Code Status on File) Date Activated Date Inactivated Comments 09/11/2023 11:48 PM 09/14/2023 6:37 PM This order reflects the patients wishes and were consensually agreed upon. Question Answer Comments Discussion of Advance Directives occurred with: Patient * Full Code Date Activated Date Inactivated Comments 09/10/2023 4:24 PM 09/11/2023 11:38 PM This order reflects the patients wishes and were consensually agreed upon. Question Answer Comments Discussion of Advance Directives occurred with: Patient Does the patient have a Living Will? No Does the patient have Health Care Power of Attor philipp? No Care Teams Cmo Relationship Specialty Start Date End Date Chuy Batista MD [address] [place] [address] PCP - General Family Medicine 07/11/14 documented as of this encounter
--- OUTSIDE RECORDS SUMMARY | 2024-01-04 20:43 | External Medical Summary | Summary of Care ---
Author Name Unknown Organization [facility] Address [address] [facility] [place] [address] Phone [phone] Care Team Providers Care Vein Pumper Name Role Phone Chuy Batista MD Primary Care Provider +1- [phone] Reason for Referral * Evaluate & Treat - Unlimited Visits (Within 10 days (routine)) - Pending Review Specialty Diagnoses / Procedures Referred By Monik de leon Referred To Contact Podiatry Diagnoses Toenail deformity Toenail avulsion, initial encounter Damaris Beyer MD [address] [place] [address] Referral ID Status Reason Start Date Expiration Date Visits Requested Visits Authorized [id number] Pending Review Specialty Services Required 12/27/[phone] Question Answer Referral Priority Within 10 days (routine) Where should this appointment be scheduled? [facility] Which condition are you referring this patient for? Wound or ulcer Reason for Visit * Reason Onset Date Comments Hospital Follow-Up Pt here due t o discharge from [facility] long term Pt has some question about the catheter. Hospital Follow-Up 12/27/2023 Encounter Details Date Type Department Care Team (Latest Contact Info) Description 12/27/2023 10:40 AM EDT [facility] [address] [address] [place] [address] Damaris Beyer MD [address] [address] Urinary tract infection without hematuria, site unspecified*; Physical deconditioning; Malnutrition of moderate degree (HCC); Tatum catheter in place; History of pulmonary embolism; History of DVT in adulthood; Chronic kidney disease, stage 3b (HCC); Urothelial carcinoma of bladder (HCC); Prostate cancer (HCC); S/P IVC filter; Adrenal insufficiency (HCC); Orthostatic hypotension; Toenail deformity; Leg swelling; Hospital discharge follow-up; Toenail avulsion, initial encounter Allergies Active Allergy Reactions Criticality Noted Date Comments Chocolate Diarrhea 05/14/2023 Chocolate Flavor High 10/09/2023 Other Reaction(s): DIARRHEA/ Cannot take, interacts w/ medications. Clindamycin Hcl 09/24/2005 rash Cranberry 10/20/2023 Iodinated Contrast Media 10/01/2015 Ioversol Other (Please comment) High 08/10/[address] IV DYE Pembrolizumab High 10/10/2023 Other Reaction(s): myocarditis documented as of this encounter (statuses as of 12/27/2023) Medications Medication Sig Dispensed Refills Start Date [...] USE DIRECTED 1 Each 0 01/27/2023 Active Multi Adult Gummies Oral Tablet Chewable Take by mouth. 0 Activ e Vitamin D 125 MCG (5000 UT) Oral Capsule Take by mouth. 0 Active Iron 325 (65 Fe) MG Oral Tablet Take 1 Tablet by mouth in the morning. 0 Active Acetaminophen 325 MG Oral Capsule Take 650 mg by mouth every 4 hours as needed for Pain (fever or pain). 0 Active Ascorbic Acid 500 MG Oral Tablet Take 2 Tablets by mouth every morning. 0 Active Ipratropium-Albu terol 0.5-2.5 (3) MG/3ML Inhalation Solution (Duoneb) Inhale 3 mL by mouth every 6 hours as needed. 0 Active Sulfamethoxazole -Trimethoprim 800-160 MG Oral Tablet (Bactrim DS)Indications:U rothelial carcinoma of bladder (HCC),Other acute myocarditis 1 tablet 3 days a week ( Wednesday, Wednesday, Wednesday). 36 Tablet 0 10/07/2023 Active Docusate Sodium 100 MG Oral Capsule (Colace) Take 1 Capsule by mouth in the morning and 1 Capsule before bedtime. 0 Active Bisacodyl 10 MG Rectal Suppository (Dulcolax) Administer 1 Suppository into the rectum in the morning. 0 Active polyethylene glycol 3350 119 gram OR POWD Take 119 g by mouth once. 0 Active busPIRone HCl 5 MG Oral Tablet (Buspar)Indicati ons:Adjustment disorder with mixed anxiety and depressed mood Take 0.5 Tablets by mouth in the morning and 0.5 Tablets at noon and 0.5 Tablets before bedtime. 45 Tablet 0 11/04/2023 Active Midodrine HCl 2.5 MG Oral Tablet (Proamatine)Denice cations:Orthosta tic hypotension Take 1 Tablet by mouth 3 [...] Omeprazole 20 MG Oral Capsule Delayed Release (PriLOSEC)Indica tions:Gastroesop hageal reflux disease, unspecified whether esophagitis present Take 1 Capsule by mouth in the morning. 90 Capsule 1 11/12/2023 Active Medihoney Wound/Burn Dressing External GelIndications:P ressure injury of sacral region, stage 2 (HCC) Apply topically to affected area daily. Apply to pressure ulcer of buttocks. 88 mL 3 11/12/2023 Active predniSONE 20 MG Oral Tablet (Deltasone)Indic ations:Urothelia l carcinoma of bladder (HCC),Other acute myocarditis TAKE 4 TABLETS BY MOUTH EVERY MORNING WITH FOOD 120 Tablet 1 11/26/2023 Active ProAir HFA 108 (90 Base) MCG/ACT Inhalation Aerosol Solution Inhale 2 Puffs by mouth as needed. 0 Active B Complex Oral Capsule Take 1 Capsule by mouth in the morning. 0 Active Montelukast Sodium 10 MG Oral Tablet (Singulair)Indic ations:Chronic allergic rhinitis Discontinue Montelukast 90 Tablet 3 12/17/2023 12/27/19 Discontinu ed(Patient preference /discontin uation) documented as of this encounter (statuses as of 12/27/2023) Active Problems Problem Noted Date Diagnosed Date [...] as of this encounter (statuses as of 12/27/2023) Resolved Problems Problem Noted Date Diagnosed Date [...] as of this encounter (statuses as of 12/27/2023) Immunizations Name Administration Dates Next Due COVID-19 mRNA, LNP-s, No Pre serve, 2-Dose Series (POSLavu) 05/30/2021,10/29/2020,10/08/2020 COVID-19, LNP-s, No Preserve , Prosper-sucrose, [...] Sign Reading Time Taken Comments Blood Pressure 122/80 12/27/2023 10:30 AM EDT Pulse 81 12/27/2023 10:30 AM EDT Temperature 35.9 C (96.7 F) 12/27/2023 10:30 AM E DT Respiratory Rate 18 12/27/2023 10:30 AM EDT Oxygen Saturation 97% 12/27/2023 10:30 AM EDT Inhaled Oxygen Concentration - - Weight - - Height - - Body Mass Index - - documented in this encounter Functional Status Functional [...] as of this encounter Progress Notes * Damaris Beyer MD - 12/27/2023 10:37 AM EDT Subjective Branden High is a 78 year old male. Chief Complaint Patient presents with Hospital Follow-Up Pt here due to discharge from [facility] Pt has some question about the catheter. 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 , on prednisone Also taking midodrine for severe orthostatic hypotension ANDRZEJ, was not able to use CPAP due to in and out hospital Recently sleep medicine ordered a new CPAP Waiting for approval Mild dementia , mild depression DVT, PE hx, IVC filter PMH: Patient Active Problem List Diagnosis Code ANGIOEDEMA T78.3XXA Deviated nasal septum J34.2 HTN (hypertension) I10 Chronic steroid use [id number] Adrenal insufficiency ([facility]) E27.40 Moderate persistent asthma without complication J45.40 History of DVT in adulthood Z86.718 History of pulmonary embolism Z86.711 Chronic anticoagulation Z79.01 Prostate cancer (HCC) C61 ANDRZEJ (obstructive sleep apnea) G47.33 Hx of nonmelanoma skin cancer Z85.828 Mild cognitive impairment G31.84 Aortic valve stenosis I35.0 Benign hypertension with stage 3b chronic kidney disease (HCC) I12.9, N18.32 Chronic kidney disease, stage 3b (HCC) N18.32 Personal history of radiation therapy Z92.3 Unspecified dementia, unspecified severity, without behavioral disturbance, psychotic disturbance, mood disturbance, and anxiety ([facility]) F03.90 Urothelial carcinoma of bladder (HCC) C67.9 Suspected pulmonary embolism R09.89 Elevated troponin R79.89 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 Malnutrition of moderate degree ([facility]) E44.0 Orthostatic hypotension I95.1 S/P IVC filter Z95.828 Acute deep vein thrombosis (DVT) of femoral vein of right lower extremity ([facility]) I82.411 Myocarditis ([facility]) I51.4 Current Outpatient Medications Medication Sig Dispense Refill Fluticasone Propionate 50 MCG/ACT Nasal Suspension (Flonase) SPRAY 2 SPRAYS INTO EACH NOSTRIL IN THE MORNING 16 mL 3 Trelegy Ellipta 200-62.5-25 MCG/ACT Aerosol Powder Breath Activated (Xivmqvguzkf-Mhqqufzolrmy-Bomweszlbu) Inhale 1 Puff by mouth every evening. 60 Blister Dosing Unit 11 EpiPen 2-Pedro 0.3 MG/0.3ML Injection Solution Auto-injector USE DIRECTED 1 Each 0 Multi Adult Gummies Oral Tablet Chewable Take by mouth. Vitamin D 125 MCG (5000 UT) Oral Capsule Take by mouth. Iron 325 (65 Fe) MG Oral Tablet Take 1 Tablet by mouth in the morning. Acetaminophen 325 MG Oral Capsule Take 650 mg by mouth every 4 hours as needed for Pain (fever or pain). Ascorbic Acid 500 MG Oral Tablet Take 2 Tablets by mouth every morning. Ipratropium-Albuterol 0.5-2.5 (3) MG/3ML Inhalation Solution (Duoneb) Inhale 3 mL by mouth every 6 hours as needed. Sulfamethoxazole-Trimethoprim 800-160 MG Oral Tablet (Bactrim DS) 1 tablet 3 days a week ( Wednesday, Wednesday, Wednesday). 36 Tablet 0 Docusate Sodium 100 MG Oral Capsule (Colace) Take 1 Capsule by mouth in the morning and 1 Capsule before bedtime. Bisacodyl 10 MG Rectal Suppository (Dulcolax) Administer 1 Suppository into the rectum in the morning. polyethylene glycol 3350 119 gram OR POWD Take 119 g by mouth once. busPIRone HCl 5 MG Oral Tablet (Buspar) Take 0.5 Tablets by mouth in the morning and 0.5 Tablets atnoon and 0.5 Tablets before bedtime. 45 Tablet 0 Midodrine HCl 2.5 MG Oral Tablet (Proamatine) Take 1 Tablet by mouth 3 times a day. Take at 8 am, noon, 4 pm 90 Tablet 0 Donepezil HCl 10 MG Oral Tablet (Aricept) TAKE 1 TABLET BY MOUTH EVERY MORNING WITH LARGEST MEAL OFTHE DAY. 90 Tablet 1 Memantine HCl 10 MG Oral Tablet (Namenda) TAKE 1 TABLET BY MOUTH TWO TIMES DAILY WITH MORNING AND EVENING MEALS. 180 Tablet 1 Omeprazole 20 MG Oral Capsule Delayed Release (PriLOSEC) Take 1 Capsule by mouth in the morning. 90Capsule 1 [facility] Wound/Burn Dressing External Gel Apply topically to affected area daily. Apply to pressure ulcer of buttocks. 88 mL 3 predniSONE 20 MG Oral Tablet (Deltasone) TAKE 4 TABLETS BY MOUTH EVERY MORNING WITH FOOD 120 Tablet1 ProAir HFA 108 (90 Base) MCG/ACT Inhalation Aerosol Solution Inhale 2 Puffs by mouth as needed. B Complex Oral Capsule Take 1 Capsule by mouth in the morning. Syringe/Needle, Disp, 25G X 1-1/2" 3 ML MISC To use with injection of hydrocortisone if needed (Patient not taking: Reported on 12/27/2023) 2 Each 5 No current facility-administered medications for this visit. Past Medical History: Diagnosis Date Adrenal insufficiency (HCC) 04/23/2015 Allergic rhinitis 2007 Chronic anticoagulation 04/13/2017 Chronic rhinitis 2007 Chronic sinusitis 2006 Deviated nasal septum 2006 History of DVT in adulthood 08/20/2014 History of pulmonary embolism 04/2014 Kidney disease, chronic, stage III (GFR 30-59 ml/min) 10/21/2015 Per CKD protocol #1 ANDRZEJ (obstructive sleep apnea) 08/19/2018 Prostate cancer ([facility]) Past Surgical History: Procedure Laterality Date CATARACT SURGERY,COMPLEX Bilateral REMOVAL OF APPENDIX Review of patient's allergies indicates: Allergen Reactions Chocolate Flavor Other Reaction(s): DIARRHEA/ Cannot take, interacts w/ medications. Ioversol Other (Please comment) CARDIAC ARREST CT IV DYE Pembrolizumab Other Reaction(s): myocarditis Chocolate Diarrhea Clindamycin [Clindamycin Hcl] rash Cranberry Iodinated Contrast Media Family History Problem Relation Age of Onset Cancer Mother Cancer Father prostat Cancer Brother prostat Family Status Relation Status Mo at age 78 Fa at age 80 Bro Alive MGMA MGFA PGMA PGFA Bro (Not Specified) Social History Socioeconomic History Marital status: Spouse [...] Resource Strain: Not on file Food Insecurity: Patient Declined (12/27/2023) Hunger Vital Sign Worried About Running Out of Food in the Last Year: Patient declined Ran Out of Food in the Last Year: Patient declined Transportation Needs: Not on file Physical Activity: Not on file Stress: Not on file Social Connections: Not on file Intimate Partner Violence: Not on file Housing Stability: Not on file Review of Systems Constitutional: Positive for activity change and fatigue. Negative for appetite change, chills, diaphoresis, fever and unexpected weight change. HENT: Positive for congestion and postnasal drip. Respiratory: Negative for cough, chest tightness, shortness of breath and wheezing. Cardiovascular: Positive for leg swelling (chronic usually rt leg worse). Negative for chest pain and palpitations. Gastrointestinal: Negative for abdominal distention and abdominal pain. Genitourinary: Urinary incontinence Tatum Musculoskeletal: Positive for arthralgias and gait problem. Skin: Positive for color change (lower legs, chronic venous insuff) and wound (toenail broken). Allergic/Immunologic: Positive for environmental allergies and immunocompromised state. Neurological: Positive for dizziness, weakness and light-headedness. Negative for tremors and speech difficulty. Psychiatric/Behavioral: Positive for dysphoric mood and sleep disturbance. Negative for agitation and behavioral problems. The patient is nervous/anxious. Objective BP 122/80 | Pulse 81 | Temp 35.9 C (96.7 F) (Infrared ) | Resp 18 | SpO2 97% Physical Exam Constitutional: General: He is not in acute distress. Appearance: Normal appearance. He is not ill-appearing, toxic-appearing or diaphoretic. HENT: Head: Normocephalic and atraumatic. Nose: Nose normal. Eyes: Extraocular Movements: Extraocular movements intact. Cardiovascular: Rate and Rhythm: Normal rate and regular rhythm. Heart sounds: Murmur heard. Pulmonary: Effort: Pulmonary effort is normal. No respiratory distress. Breath sounds: Normal breath sounds. No stridor. No wheezing, rhonchi or rales. Chest: Chest wall: No tenderness. Musculoskeletal: Right lower leg: Edema present. Left lower leg: No edema. Skin: Findings: No erythema. Neurological: General: No focal deficit present. Mental Status: He is alert and oriented to person, place, and time. Cranial Nerves: No cranial nerve deficit. Gait: Gait abnormal. Psychiatric: Behavior: Behavior normal. Comments: Depression ASSESSMENT/PLAN: Urinary tract infection without hematuria, site unspecified (Primary) Physical deconditioning Malnutrition of moderate degree (HCC) Tatum catheter in place History of pulmonary embolism History of DVT in adulthood Chronic kidney disease, stage 3b (HCC) Urothelial carcinoma of bladder (HCC) Prostate cancer (HCC) S/P IVC filter Adrenal insufficiency (HCC) Orthostatic hypotension Toenail deformity - PODIATRY REFERRAL OP Leg swelling - DURABLE MEDICAL EQUIPMENT Hospital discharge follow-up - DISCH MED RECON CUR MED LIS - DISCH MED RECON CUR MED LIS Toenail avulsion, initial encounter - PODIATRY REFERRAL OP Check-out note: Please rearrange his urology office visit near location if possible [facility] F/u with specialties Compression stockings Tatum cath management PT/OT home health Damaris Beyer MD documented in this encounter Nursing Notes * Leesa Salazar LPN - 12/27/2023 10:22 AM EDT Chief Complaint Patient presents with Hospital Follow-Up Pt here due to discharge from [facility] Pt has some question about the catheter. documented in this encounter Plan of Treatment Upcoming Encounters Date Type Department Care Team (Late st Contact Info) Description 01/04/2024 1:00 PM EDT Office Visit Podiatry [facility] [address] [facility] [place] [address] Damari Norman DPM [address] [place] [address] 01/20/2024 3:00 PM EDT Office Visit Cardiology, [facility] [address] [place] [address] Skye Gonzales CRNP [address] [facility] [place] [address] 02/07/2024 10:15 AM EDT Procedure Only Urology, [place] [address] [place] [address] Ernesto Villareal MD [address] [place] [address] 02/10/2024 7:15 AM EDT Cardiac Studies Cardiac Studies, [facility] [address] [place] [address] 04/12/2024 2:15 PM EDT Office Visit Hematology/Oncology [facility] [address] [place] [phone] Xavi Gramajo MD [address] [facility] [place] [address] 04/21/2024 2:40 PM EDT Office Visit [facility] [address] [place] [phone] Chuy Batista MD [address] [place] [address] 06/28/2024 2:30 PM EST Office Visit Otolaryngology [facility] [address] [facility] [place] [address] Dioni Jean-Baptiste DO [address] [facility] [place] [address] Scheduled Referrals Name Type Priority Associated Diagnoses Orde r Schedule PODIATRY REFERRAL OP Referral Within 10 days (routine) Toenail deformity Toenail avulsion, initial encounter Ordered: 12/27/2023 Health Maintenance Due Date Last Done Comments Albumin/Creatinine Ratio 1963 DTaP,Tdap,and Td Vaccines (1 - Tdap) 1964 COVID-19 Vaccine (6 - 2022- season) 2023 07/22/2022, 07/22/2022, 02/11/2022, Additional history exists Influenza Vaccine (FLU shot) (Season Ended) 2024 05/29/2022, 05/27/2021, 06/13/2020, Additional history exists GFR 05/14/2024 11/12/2023, 10/15, 10/25/2023, Additional history exists CKD PHOS USE SMARTSET 37229 09/11/202408/17, 09/11/2023, 07/14/2021, Additional history exists CKD HGB USE SMARTSET 59047 12/12/202412/12, 11/12/2023, 11/12/2023, Additional history exists Depression [...] as of this encounter Visit Diagnoses Diagnosis Urinary tract infection without hematuria, site unspecified- Primary Physical deconditioning Debility, unspecified Malnutrition of moderate degree (HCC) Malnutrition of moderate degree Tatum catheter in place Other postprocedural status History of pulmonary embolism Personal history of pulmonary embolism History of DVT in adulthood Chronic kidney disease, stage 3b (HCC) Urothelial carcinoma of bladder (HCC) Prostate cancer (HCC) Malignant neoplasm of prostate S/P IVC filter Other postprocedural status Adrenal insufficiency (HCC) Glucocorticoid deficiency Orthostatic hypotension Toenail deformity Unspecified disease of nail Leg swelling Swelling of limb Hospital discharge follow-up Other follow-up examination Toenail avulsion, initial encounter documented in this encounter Advance Directives Latest [...] the patient have Health Care Power of Accountant? No Care Teams Vein Pumper Relationship Specialty Start Date End Date Chuy Batista MD [address] [place] [address] PCP - General Family Medicine 07/11/14 documented as of this encounter
--- OUTSIDE RECORDS SUMMARY | 2024-01-04 20:43 | External Medical Summary | Summary of Care ---
Author Name Unknown Organization [facility] Address [address] [place] [address] Phone [phone] Care Team Providers Care Manager Installation Name Role Phone Chuy Batista MD Primary Care Provider +1- [phone] Reason for Visit * Reason Onset Date Comments Appointment 09/29/2023 Encounter Details Date Type Department Care Team (Late st Contact Info) Description 09/29/2023 Telephone Urology, [place] [address] [place], [place] [id number] Services, Scheduling [address] [place] [address] Appointment Allergies Active Allergy Reactions Criticality Noted Date Comments Chocolate Diarrhea 05/14/2023 Chocolate Flavor High 10/09/2023 Other Reaction(s): DIARRHEA/ Cannot take, interacts w/ medications. Clindamycin Hcl 09/24/2005 rash Cranberry 10/20/2023 Iodinated Contrast Media 10/01/2015 Ioversol Other (Please comment) High 08/10/[address] IV DYE Pembrolizumab High 10/10/2023 Other Reaction(s): myocarditis documented as of this encounter (statuses as of 12/29/2023) Medications Medication Sig Dispensed Refills Start Date [...] Tablets by mouth every morning. 0 Active documented as of this encounter (statuses as of 12/29/2023) Active Problems Problem Noted Date Diagnosed Date [...] as of this encounter (statuses as of 12/29/2023) Resolved Problems Problem Noted Date Diagnosed Date [...] as of this encounter (statuses as of 12/29/2023) Immunizations Name Administration Dates Next Due COVID-19 mRNA, LNP-s, No Pre serve, 2-Dose Series ([place]) 05/30/2021,10/29/2020,10/08/2020 COVID-19, LNP-s, No Preserve , Prosper-sucrose, [...] encounter Miscellaneous Notes * Telephone Encounter - Rosio Mix OSA - 09/29/2023 1:23 PM EST Pt was in the hospital and he was advised to see Dr Ashlee mathew and I see the referral to schedule and it wont allow me to schedule can someone call him at [phone] documented in this encounter Plan of Treatment Upcoming Encounters Date Type Department Care Team (Late st Contact Info) Description 01/04/2024 1:00 PM EDT Office Visit Podiatry [facility] [address] [facility] [place] [address] Damari Norman DPM [address] [facility] [place] [address] 01/20/2024 3:00 PM EDT Office Visit Cardiology, [facility] [address] [facility] [place] [address] Skye Gonzales CRNP [address] [facility] [place] [address] 02/07/2024 10:15 AM EDT Procedure Only Urology, [place] [address] [place] [address] Ernesto Villareal MD [address] [place] [address] 02/10/2024 7:15 AM EDT Cardiac Studies Cardiac Studies, [facility] [place] [address] 04/12/2024 2:15 PM EDT Office Visit Hematology/Oncology [facility] [address] [place] [phone] Xavi Gramajo MD [address] [facility] [place], [place] [address] 04/21/2024 2:40 PM EDT Office Visit Family [facility] [address] [place] [phone] Chuy Batista MD [address] [place] [address] 06/28/2024 2:30 PM EST Office Visit Otolaryngology [facility] [address] [place] [address] Dioni Jean-Baptiste, [address] [place] [address] Health Maintenance Due Date Last Done Comments Albumin/Creatinine Ratio 1963 DTaP,Tdap,and Td Vaccines (1 - Tdap) 1964 COVID-19 Vaccine ( - season) 2023 07/22/2022, 07/22/2022, 02/11/2022, Additional history exists Influenza Vaccine (FLU shot) (Season Ended) 2024 05/29/2022, 05/27/2021, 06/13/2020, Additional history exists GFR 05/14/2024 11/12/2023, 10/15, 10/25/2023, Additional history exists CKD PHOS USE SMARTSET 86452 09/11/202408/17, 09/11/2023, 07/14/2021, Additional history exists CKD HGB USE SMARTSET 34356 12/12/202412/12, 11/12/2023, 11/12/2023, Additional history exists Depression [...] Not on filedocumented as of this encounter Additional Health Concerns Infection Onset [...] the patient have Health Care Power of Latin American Studies Professor? No Care Teams Manager Installation Relationship Specialty Start Date End Date Chuy Batista MD [address] [place] [facility] [address] PCP - General Family Medicine 07/11/14 documented as of this encounter
--- OUTSIDE RECORDS SUMMARY | 2024-01-04 20:44 | External Medical Summary | Summary of Care ---
Author Name Unknown Organization [facility] Address [address] [place] [address] Phone [phone] Care Team Providers Care Material Handling Supervisor Name Role Phone Chuy Batista MD Primary Care Provider +1- [phone] Reason for Visit * Reason Onset Date Comments Encounter Created in Error 12/21/2023 Encounter Details Date Type Department Care Team (Late st Contact Info) Description 12/21/2023 Telephone [facility] [address] [place] [address] Chuy Batista MD [address] [place] [address] Encounter Created in Error Allergies Active Allergy Reactions Criticality Noted Date Comments Chocolate Diarrhea 05/14/2023 Chocolate Flavor High 10/09/2023 Other Reaction(s): DIARRHEA/ Cannot take, interacts w/ medications. Clindamycin Hcl 09/24/2005 rash Cranberry 10/20/2023 Iodinated Contrast Media 10/01/2015 Ioversol Other (Please comment) High 08/10/[address] IV DYE Pembrolizumab High 10/10/2023 Other Reaction(s): myocarditis documented as of this encounter (statuses as of 12/21/2023) Medications Medication Sig Dispensed Refills Start Date [...] before bedtime. 45 Tablet 0 11/04/2023 Active Additional Information Patient taking differently: 5 mgOral TID(AM/NOON/HS), Reported on 12/13/2023 Midodrine HCl 2.5 MG Oral Tablet (Proamatine)Indic [...] the morning. 90 Capsule 1 11/12/2023 Active [facility] Wound/Burn Dressing External GelIndications:Pr essure injury [...] MG Oral Tablet (Singulair)Indica tions:Chronic allergic rhinitis Discontinue Montelukast 90 Tablet 3 12/17/2023 Active documented as of this encounter (statuses as of 12/21/2023) Active Problems Problem Noted Date Diagnosed Date [...] 03/27/2019 Overview: basal cell carcinoma (L lower galaivz 03/02) ANDRZEJ (obstructive sleep apnea) 08/19/2018 Prostate cancer 06/29/2017 Moderate persistent asthma without complication 04/13/2017 Chronic anticoagulation 04/13/2017 Adrenal insufficiency 04/23/2015 Chronic steroid use 02/21/2015 HTN (hypertension) 10/16/2014 History of DVT in adulthood 08/20/2014 History of pulmonary embolism 04/16/2014 Deviated nasal septum 02/03/2006 ANGIOEDEMA 02/25/2005 documented as of this encounter (statuses as of 12/21/2023) Resolved Problems Problem Noted Date Diagnosed Date [...] as of this encounter (statuses as of 12/21/2023) Immunizations Name Administration Dates Next Due COVID-19 mRNA, LNP-s, No Pre serve, 2-Dose Series (YesVideo) 05/30/2021,10/29/2020,10/08/2020 COVID-19, LNP-s, No Preserve , Prosper-sucrose, [...] Care Team (Late st Contact Info) Description 12/24/2023 2:30 PM EDT Office Visit Otolaryngology [facility] [address] [facility] [place] [address] Dioni Jean-Baptiste DO [facility] [place] [address] 12/27/2023 10:40 AM EDT Office Visit [facility] [place] [address] [facility] [address] Damaris Beyer MD [address] [place] [address] 01/20/2024 3:00 PM EDT Office Visit Cardiology, [facility] [address] [place] [address] Skye Gonzales CRNP 132 [place] [address] 02/10/2024 7:15 AM EDT Cardiac Studies Card[facility] Studies, [facility] [address] 04/12/2024 2:15 PM EDT Office Visit Hematology/Oncology [facility] [address] [place] [address] Xavi Gramajo MD [address] [facility] [address] 04/21/2024 2:40 PM EDT Office Visit [facility] [place] [address] [facility] [address] Chuy Batista MD [address] [place] [place] [address] Health Maintenance Due Date Last Done Comments Albumin/Creatinine Ratio 1963 DTaP,Tdap,and Td Vaccines (1 - Tdap) 1964 Depression Screening 04/29/2021 04/29/2020 COVID-19 Vaccine ( - 2022- season) 2023 07/22/2022, 07/22/2022, 02/11/2022, Additional history exists Influenza Vaccine (FLU shot) (Season Ended) 2024 05/29/2022, 05/27/2021, 06/13/2020, Additional history exists GFR 05/14/2024 11/12/2023, 10/15, 10/25/2023, Additional history exists CKD PHOS USE SMARTSET 53716 09/11/202408/17, 09/11/2023, 07/14/2021, Additional history exists CKD HGB USE SMARTSET 38726 12/12/202412/12, 11/12/2023, 11/12/2023, Additional history exists Pneumococcal Vaccine: 65+ Years [...] the patient have Health Care Power of Gel Coater? No Care Teams Material Handling Supervisor Relationship Specialty Start Date End Date Chuy Batista MD [address] [place] [address] PCP - General Family Medicine 07/11/14 documented as of this encounter
--- OUTSIDE RECORDS SUMMARY | 2024-01-04 20:44 | External Medical Summary | Summary of Care ---
Author Name Unknown Organization [facility] Address [address] [facility] [place] [address] Phone [phone] Care Team Providers Care Dean Name Role Phone Chuy Batista MD Primary Care Provider +1- [phone] Reason for Visit * Reason Onset Date Comments Test Results Lab 12/20/2023 Encounter Details Date Type Department Care Team (Late st Contact Info) Description 12/20/2023 Telephone Hematology/Oncology [facility] [place] 200 [facility] [place] [phone] Xavi [facility]ajo [facility] [address] [facility] [address] Test Results Lab Allergies Active Allergy Reactions Criticality Noted Date Comments Chocolate Diarrhea 05/14/2023 Chocolate Flavor High 10/09/2023 Other Reaction(s): DIARRHEA/ Cannot take, interacts w/ medications. Clindamycin Hcl 09/24/2005 rash Cranberry 10/20/2023 Iodinated Contrast Media 10/01/2015 Ioversol Other (Please comment) High 08/10/[address] IV DYE Pembrolizumab High 10/10/2023 Other Reaction(s): myocarditis documented as of this encounter (statuses as of 12/20/2023) Medications Medication Sig Dispensed Refills Start Date [...] the morning. 90 Capsule 1 11/12/2023 Active [facility] Wound/Burn Dressing External GelIndications:Pr essure injury [...] as of this encounter (statuses as of 12/20/2023) Active Problems Problem Noted Date Diagnosed Date [...] as of this encounter (statuses as of 12/20/2023) Resolved Problems Problem Noted Date Diagnosed Date [...] as of this encounter (statuses as of 12/20/2023) Immunizations Name Administration Dates Next Due COVID-19 mRNA, LNP-s, No Pre serve, 2-Dose Series ([place]) 05/30/2021,10/29/2020,10/08/2020 COVID-19, LNP-s, No Preserve , Prosper-sucrose, [...] Telephone Encounter - Toña Ceballos LPN - 12/20/2023 12:21 PM EDT Called and spoke with patient's , Ivet. Made her aware of the lab result message from audi. She verbalized understanding, denies any further needs or complaints at this time. * Telephone Encounter - Toña Ceballos LPN - 12/20/2023 12:17 PM EDT ----- Message from Xavi Gramajo MD sent at 12/20/2023 11:47 AM EDT ----- Blood workup done on 12/16/2023: - Ferritin level --> 567 - Serum iron 22, TIBC 193, iron saturation 11%. - Vitamin B-12 --> 753 - Folic acid --> 19.3. No need for intravenous iron therapy at this time. documented in this encounter Plan of Treatment Upcoming Encounters Date Type Department Care Team (Late st Contact Info) Description 12/24/2023 2:30 PM EDT Office Visit Otolaryngology [facility] [address] [place] [address] Dioni Jean-Baptiste DO [address] [place] [address] 01/20/2024 3:00 PM EDT Office Visit Cardiology, [facility] [address] [place] [address] Skye Gonzales CRNP [address] [place] [address] 02/10/2024 7:15 AM EDT Cardiac Studies Cardiac Studies, [facility] [address] [place] [address] 04/12/2024 2:15 PM EDT Office Visit Hematology/Oncology [facility] [place] [address] [facility] [place], [place] [phone] Xavi Gramajo MD 200 [facility] [place], [place] [address] 04/21/2024 2:40 PM EDT Office Visit [facility] [address] [place] [address] Chuy Batista MD [address] [place] [address] Health Maintenance Due Date Last Done Comments Albumin/Creatinine Ratio 1963 DTaP,Tdap,and Td Vaccines (1 - Tdap) 1964 Depression Screening 04/29/2021 04/29/2020 COVID-19 Vaccine ( season) 2023 07/22/2022, 07/22/2022, 02/11/2022, Additional history exists Influenza Vaccine (FLU shot) (Season Ended) 2024 05/29/2022, 05/27/2021, 06/13/2020, Additional history exists GFR 05/14/2024 11/12/2023, 10/15, 10/25/2023, Additional history exists CKD PHOS USE SMARTSET 74752 09/11/202408/17, 09/11/2023, 07/14/2021, Additional history exists CKD HGB USE SMARTSET 16240 12/12/202412/12, 11/12/2023, 11/12/2023, Additional history exists Pneumococcal [...] patient have Health Care Power of Senior Commissions Analyst? No Care Teams Dean Relationship Specialty Start Date End Date Chuy Batista MD [address] [place] [address] PCP - General Family Medicine 07/11/14 documented as of this encounter
--- OUTSIDE RECORDS SUMMARY | 2024-01-04 20:44 | External Medical Summary | Summary of Care ---
Author Name Unknown Organization [facility] Address [address] [facility] [address] Phone [phone] Care Team Providers Care Ferris Wheel Attendant Name Role Phone Chuy Batista MD Primary Care Provider +1- [phone] Reason for Visit * Reason Comments Follow Up Encounter Details Date Type Department Care Team (Late st Contact Info) Description 12/24/2023 2:30 PM EDT Office Visit Otolaryngology [facility] [address] [place] [address] Dioni Jean-Baptiste DO [address] [place] [address] ETD (Eustachian tube dysfunction), bilateral* Allergies Active Allergy Reactions Criticality Noted Date Comments Chocolate Diarrhea 05/14/2023 Chocolate Flavor High 10/09/2023 Other Reaction(s): DIARRHEA/ Cannot take, interacts w/ medications. Clindamycin Hcl 09/24/2005 rash Cranberry 10/20/2023 Iodinated Contrast Media 10/01/2015 Ioversol Other (Please comment) High 08/10/[address] IV DYE Pembrolizumab High 10/10/2023 Other Reaction(s): myocarditis documented as of this encounter (statuses as of 12/24/2023) Medications Medication Sig Dispensed Refills Start Date [...] the morning. 90 Capsule 1 11/12/2023 [facility] Dressing External GelIndications:Pr essure injury of [...] as of this encounter (statuses as of 12/24/2023) Active Problems Problem Noted Date Diagnosed Date [...] as of this encounter (statuses as of 12/24/2023) Resolved Problems Problem Noted Date Diagnosed Date [...] as of this encounter (statuses as of 12/24/2023) Immunizations Name Administration Dates Next Due COVID-19 mRNA, LNP-s, No Pre serve, 2-Dose Series ([employer]Workings) 05/30/2021,10/29/2020,10/08/2020 COVID-19, LNP-s, No Preserve , Prosper-sucrose, [...] Sign Reading Time Taken Comments Blood Pressure - - Pulse - - Temperature 36.4 C (97.5 F) 12/24/2023 12:52 PM E DT Respiratory Rate - - Oxygen Saturation - - Inhaled Oxygen Concentration - - Weight 93.4 kg (206 lb) 12/24/2023 12:52 PM EDT Height 190.5 cm (6' 3") 12/24/2023 12:52 PM EDT Body Mass Index 25.75 12/24/2023 12:52 PM EDT documented in this encounter Functional Status Functional [...] as of this encounter Progress Notes * Dioni Jean-Baptiste, DO - 12/24/2023 1:13 PM EDT Otolaryngology Head and Neck Surgery 12/24/2023 Patient returns today for check of his ears. He is status post bilateral tube placement for intolerance to HBO. These were done in February of 2023. Patient states he has been doing well without issue. 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 Suspected pulmonary embolism R09.89 Elevated troponin R79.89 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 Malnutrition of moderate degree (HCC) E44.0 Orthostatic hypotension I95.1 S/P IVC filter Z95.828 Acute deep vein thrombosis (DVT) of femoral vein of right lower extremity (HCC) I82.411 Myocarditis (HCC) I51.4 Past Medical History: Diagnosis Date Adrenal insufficiency (HCC) 04/23/2015 Allergic rhinitis 2007 Chronic anticoagulation 04/13/2017 Chronic rhinitis 2007 Chronic sinusitis 2007 Deviated nasal septum 2006 History of DVT in adulthood 08/20/2014 History of pulmonary embolism 04/2014 Kidney disease, chronic, stage III (GFR 30-59 ml/min) 10/21/2015 Per CKD protocol #1 ANDRZEJ (obstructive sleep apnea) 08/19/2018 Prostate cancer ([facility]) Past Surgical History: Procedure Laterality Date CATARACT SURGERY,COMPLEX Bilateral REMOVAL OF APPENDIX Medications Current Outpatient Medications Medication Sig Dispense Refill Syringe/Needle, Disp, 25G X 1-1/2" 3 ML MISC To use with injection of hydrocortisone if needed 2 Each 5 Fluticasone Propionate 50 MCG/ACT Nasal Suspension (Flonase) SPRAY 2 SPRAYS INTO EACH NOSTRIL IN THE MORNING 16 mL 3 Trelegy Ellipta 200-62.5-25 MCG/ACT Aerosol Powder Breath Activated (Ewblotbiouj-Mocvhtfozdbl-Vphrqgkjap) Inhale 1 Puff by mouth every evening. [...] Tablets atnoon and 0.5 Tablets before bedtime. (Patient taking differently: Take 1 Tablet by mouth in the morning and 1 Tablet at noon and 1 Tablet before bedtime.) 45 Tablet 0 Midodrine HCl 2.5 MG [...] by mouth in the morning. 90Capsule 1 [facility] Wound/Burn Dressing External Gel Apply topically to [...] 1 Capsule by mouth in the morning. Montelukast Sodium 10 MG Oral Tablet (Singulair) Discontinue Montelukast 90 Tablet 3 No current facility-administered medications for this visit. Allergies Review of patient's allergies indicates: Allergen Reactions Chocolate Flavor Other Reaction(s): DIARRHEA/ Cannot take, interacts w/ medications. Ioversol Other (Please comment) CARDIAC ARREST CT IV DYE Pembrolizumab Other Reaction(s): myocarditis Chocolate Diarrhea Clindamycin [Clindamycin Hcl] rash Cranberry Iodinated Contrast Media Family History Family History Problem Relation Age of Onset Cancer Mother Cancer Father prostat Cancer Brother prostat Social History Social History Tobacco Use Smoking status: Never Passive exposure: Never Smokeless tobacco: Never Tobacco comments: passive smoke from at home Substance Use Topics Alcohol use: No Comment: 1 beer per year Vaping/E-Cigarette Use Vaping/E-Cigarette Use Never User Vaping/E-Cigarette Substances Nicotine No Other No Flavoring No THC No Cannabidiol (CBD) No Vaping/E-Cigarette Devices Disposable No Pre-filled or Refillable Cartridge No Refillable Tank No Pre-filled Pod No Review of Systems Negative for constitutional, eyes, cardiac, pulmonary, hepatic, renal, digestive, hematologic, epileptic, syncopal, musculo-skeletal, mental health, integumentary, hypertensive, lipid, arthritic, diabetic, thyroid, or neurologic disorders (except as listed in the PMH and Problem List). Physical Examination: Temp 36.4 C (97.5 F) (Tympanic) | Ht 1.905 m (6' 3") | Wt 93.4 kg (206 lb) | BMI 25.75 kg/m |BSA 2.22 m PHYSICAL EXAM General: This is a healthy appearing male who appears his stated age. The patient is alert and appropriately verbally conversant without hoarseness. Face: The face was inspected and no cutaneous masses or lesions were visualized. There was no erythema or edema noted. Facial movement was symmetric without weakness. Eyes: Extra-ocular muscle function was intact. No nystagmus was observed. Pupils were equal. Cranial Nerves: Cranial nerves II, III, IV, and were noted to be intact via extra-ocular muscle movement testing. Cranial nerve VII noted to be intact and symmetric by facial movement. Ears: Examination of the ears revealed that the auricles were normally formed with no lesions. Right tube is in place and functional. Middle ear is healthy. Left tube is partially extruded and nonfunctional. Assessment: 78-year-old male status post bilateral tube placement in February of 2023 due to intolerance HBO Plan: - doing well. -follow-up in 6 months I spent a total of 20 minutes on the date of service in preparation, delivery, and documentation ofthe care provided to the above patient, excluding any time spent on the performance of any procedures or separately billable services. Dioni Jean-Baptiste DO, [facility] Otolaryngology Head and Neck Surgery [place], [place] 12/24/2023 1:16 PM documented in this encounter Nursing Notes * Toña Diggs LPN - 12/24/2023 12:50 PM EDT Pt presents today for a follow up. Pt denies having any issues with either ear. Unsure if tubes arestill in place or not documented in this encounter Plan of Treatment Upcoming Encounters Date Type Department Care Team (Late st Contact Info) Description 12/27/2023 10:40 AM EDT Office Visit [facility] [address] [place] [facility] [place] [address] Damaris Beyer MD [address] [place], [place] [id number] 01/20/2024 3:00 PM EDT Office Visit Cardiology, [facility] [address] [place] [address] Skye Gonzales CRNP [address] [place] [address] 02/07/2024 10:15 AM EDT Procedure Only Urology, [place] [address] [place] [address] Ernesto Villareal MD [address] [place] [address] 02/10/2024 7:15 AM EDT Cardiac Studies Cardiac Studies, [facility] [address] [place] [address] 04/12/2024 2:15 PM EDT Office Visit Hematology/Oncology [facility] [address] [facility] [phone] Xavi Gramajo MD [address] [facility] [place] [address] 04/21/2024 2:40 PM EDT Office Visit [facility] [address] [place] [facility] [place] [place] [phone] Chuy Batista MD [address] [place], [place] [phone] 06/28/2024 2:30 PM EST Office Visit Otolaryngology [facility] [address] [place] [address] Dioni Jean-Baptiste, [address] [place] [address] Health Maintenance Due Date Last Done Comments Albumin/Creatinine Ratio 1963 DTaP,Tdap,and Td Vaccines (1 - Tdap) 1964 Depression Screening 04/29/2021 04/29/2020 COVID-19 Vaccine (2022- season) 2023 07/22/2022, 07/22/2022, 02/11/2022, Additional history exists Influenza Vaccine (FLU shot) (Season Ended) 2024 05/29/2022, 05/27/2021, 06/13/2020, Additional history exists GFR 05/14/2024 11/12/2023, 10/15, 10/25/2023, Additional history exists CKD PHOS USE SMARTSET 47608 09/11/202408/17, 09/11/2023, 07/14/2021, Additional history exists CKD HGB USE SMARTSET 80139 12/12/202412/12, 11/12/2023, 11/12/2023, Additional history exists Pneumococcal [...] as of this encounter Visit Diagnoses Diagnosis ETD (Eustachian tube dysfunction), bilateral- Primary documented in this encounter Advance Directives [...] the patient have Health Care Power of Silk Opener? No Care Teams Ferris Wheel Attendant Relationship Specialty Start Date End Date Chuy Batista MD [address] [facility] [place] [address] PCP - General Family Medicine 07/11/14 documented as of this encounter
--- OUTSIDE RECORDS SUMMARY | 2024-01-04 20:44 | External Medical Summary | Summary of Care ---
Author Name Unknown Organization [facility] Address [address] [place] [address] Phone [phone] Care Team Providers Care Woodworking Belt Sander Name Role Phone Chuy Batista MD Primary Care Provider +1- [phone] Encounter Details Date Type Department Care Team (Late st Contact Info) Description 12/23/2023 Telephone [facility] [address] [place] [address] Chuy Batista MD [address] [place] [address] Allergies Active Allergy Reactions Criticality [...] 90 Capsule 1 11/12/2023 [facility] W[facility]Burn Dressing External GelIndications:Pr essure injury of [...] mRNA, LNP-s, No Pre serve, 2-Dose Series ([place]) 05/30/2021,10/29/2020,10/08/2020 COVID-19, LNP-s, No Preserve , Prosper-sucrose, [...] Telephone Encounter - Ania Neal OSA - 12/27/2023 9:03 AM EDT Spoke to Ivet and patient was able to get Hospital bed but was not able to get air mattress as they don't think that his bed sores warrant an air mattress. 12/27/2023 * Telephone Encounter - Ania Neal OSA - 12/24/2023 11:18 AM EDT DME faxed to [facility]. Patient's aware. If [facility] need an updated note, let patient know that she can ask [facility] to addend or include in the discharge note kenna tpaitent needs hospital bed. If that does not work we will need to get patient in for appt. 12/24/2023 * Telephone Encounter - Chuy Batista MD - 12/23/2023 5:57 PM EDT DME printed and at my desk. The last time I saw him was 09/28/23. My note from that date already has the information for a semi-electric bed. I cannot addend another provider's note. If that note is not recent enough, will need to see if provider's at [facility] will write or if it can wait until he has a follow up appt here. * Telephone Encounter - Ania Neal OSA - 12/23/2023 1:14 PM EDT Patient is getting discharged from [facility] tomorrow (12.24.2023). Patient needs a hospital bed as when patient went to the hospital they took the hospital bed. Placed Insurance Requirements for aEmi Electric Hsopital Bed form on Dr. Batista's desk so that the order can be faxed to [facility]. It will need to be faxed to [facility] at [phone] when order is completed. Thank you. documented in this encounter Plan of Treatment Upcoming Encounters Date Type Department Care Team (Late st Contact Info) Description 12/27/2023 10:40 AM EDT Office Visit [facility] [address] [place] [address] Damaris Beyer MD [address] [place] [address] 01/20/2024 3:00 PM EDT Office Visit Cardiology, [facility] [address] [place] [address] Skye Gonzales CRNP [address] [place] [address] 02/07/2024 10:15 AM EDT Procedure Only Urology, [place] [address] [place] [address] Ernesto Villareal MD [address] [place] [address] 02/10/2024 7:15 AM EDT Cardiac Studies Cardiac Studies, [facility] [address] [place] [address] 04/12/2024 2:15 PM EDT Office Visit Hematology/Oncology [facility] [address] [place] [phone] Xavi Gramajo MD [address] [facility] [place] [address] 04/21/2024 2:40 PM EDT Office Visit [facility] [address] [place] [address] Chuy Batista MD [address] [place] [address] 06/28/2024 2:30 PM EST Office Visit Otolaryngology [facility] [address] [place] [address] Dioni Jean-Baptiste, [address] [place] [address] Health Maintenance Due Date Last Done Comments Albumin/Creatinine Ratio 1963 DTaP,Tdap,and Td Vaccines (1 - Tdap) 1964 Depression Screening 04/29/2021 04/29/2020 COVID-19 Vaccine (2022- season) 2023 07/22/2022, 07/22/2022, 02/11/2022, Additional history exists Influenza Vaccine (FLU shot) (Season Ended) 2024 05/29/2022, 05/27/2021, 06/13/2020, Additional history exists GFR 05/14/2024 11/12/2023, 10/15, 10/25/2023, Additional history exists CKD PHOS USE SMARTSET 43379 09/11/202408/17, 09/11/2023, 07/14/2021, Additional history exists CKD HGB USE SMARTSET 95001 12/12/202412/12, 11/12/2023, 11/12/2023, Additional history exists Pneumococcal [...] of sacral region, stage 2 (HCC)- Primary Muscular deconditioning Muscular wasting and disuse atrophy, not elsewhere classified Generalized weakness Other malaise and fatigue documented in this encounter Advance Directives Latest [...] the patient have Health Care Power of Cold Rolling Machine Setter? No Care Teams Woodworking Belt Sander Relationship Specialty Start Date End Date Chuy Batista MD [address] [facility] [place] [address] PCP - General Family Medicine 07/11/14 documented as of this encounter
--- OUTSIDE RECORDS SUMMARY | 2024-01-04 20:44 | External Medical Summary | Summary of Care ---
Author Name Unknown Organization [facility] Address [address] [place] [address] Phone [phone] Care Team Providers Care Gang Investigator Name Role Phone Chuy Batista MD Primary Care Provider +1- [phone] Reason for Visit * Reason Onset Date Comments Appointment 12/20/2023 Encounter Details Date Type Department Care Team (Late st Contact Info) Description 12/20/2023 Telephone [facility] [place] [address] [place] [address] Aneudy Iglesias MD [address] [place] [address] Appointment Allergies Active Allergy Reactions [...] the morning. 90 Capsule 1 11/12/2023 Active [facility] Wound/Burn Dressing External GelIndications:Pr essure injury of [...] mRNA, LNP-s, No Pre serve, 2-Dose Series (Pepscan) 05/30/2021,10/29/2020,10/08/2020 COVID-19, LNP-s, No Preserve , Prosper-sucrose, [...] Telephone Encounter - Hanna Carrasco OSA - 12/20/2023 9:20 AM EDT Called and left message for pt to schedule new endo appt with any physician documented in this encounter Plan of Treatment Upcoming Encounters Date Type Department Care Team (Late st Contact Info) Description 12/24/2023 2:30 PM EDT Office Visit Otol[facility] [place] [address] Dioni Jean-Baptiste DO [address] [place] [address] 01/20/2024 3:00 PM EDT Office Visit Cardiology, [facility] [address] [place] [address] Skye Gonzales CRNP [address] [facility] [place] [address] 02/10/2024 7:15 AM EDT Cardiac Studies Cardiac Studies, [facility] [address] [facility] [place] [address] 04/12/2024 2:15 PM EDT Office Visit Hematology/Oncology [facility] [address] [facility] [place] [phone] Xavi Gramajo MD [address] [place] [address] 04/21/2024 2:40 PM EDT Office Visit [facility] [address] [place] [facility] [place] [phone] Chuy Batista MD [address] [place] [address] Health Maintenance Due Date Last Done Comments Albumin/Creatinine Ratio 1963 DTaP,Tdap,and Td Vaccines (1 - Tdap) 1964 Depression Screening 04/29/2021 04/29/2020 COVID-19 Vaccine ( season) 2023 07/22/2022, 07/22/2022, 02/11/2022, Additional history exists Influenza Vaccine (FLU shot) (Season Ended) 2024 05/29/2022, 05/27/2021, 06/13/2020, Additional history exists GFR 05/14/2024 11/12/2023, 10/15, 10/25/2023, Additional history exists CKD PHOS USE SMARTSET 13672 09/11/202408/17, 09/11/2023, 07/14/2021, Additional history exists CKD HGB USE SMARTSET 32705 12/12/202412/12, 11/12/2023, 11/12/2023, Additional history exists Pneumococcal [...] the patient have Health Care Power of Robot Operator? No Care Teams Gang Investigator Relationship Specialty Start Date End Date Chuy Batista MD [address] [place] [address] PCP - General Family Medicine 07/11/14 documented as of this encounter
--- OUTSIDE RECORDS SUMMARY | 2024-01-04 20:44 | External Medical Summary | Summary of Care ---
Author Name Unknown Organization [facility] Address [address] [place] [address] Phone [phone] Care Team Providers Care Water Quality Technician Name Role Phone Chuy Batista MD Primary Care Provider +1- [phone] Reason for Visit * Reason Comments Follow Up Here return sleep . Hasn't used CPAP 8-9 was recalled and sent back and he never got new one. * Evaluate & Treat - Unlimited Visits (Within 10 days (routine)) - Pending Review Specialty Diagnoses / Procedures Referred By Contac t Referred To Contact Sleep Medicine / Sleep Disorders Diagnoses ANDRZEJ (obstructive sleep apnea) Deondre Hill MD [address] [place] [address] Referral ID Status Reason Start Date Expiration Date Visits Requested Visits Authorized [id number] Pending Review Specialty Services Required 08/30/2023 2 2 Encounter Details Date Type Department Care Team (Late st Contact Info) Description 12/16/2023 4:30 PM EDT Office Visit [facility] [address] [place] [phone] Radha Caballero CRNP [address] [place] [id number] Obstructive sleep apnea*; Hypersomnia Allergies Active Allergy Reactions Criticality Noted Date Comments Chocolate Diarrhea 05/14/2023 Chocolate Flavor High 10/09/2023 Other Reaction(s): DIARRHEA/ Cannot take, interacts w/ medications. Clindamycin Hcl 09/24/2005 rash Cranberry 10/20/2023 Iodinated Contrast Media 10/01/2015 Ioversol Other (Please comment) High 08/10/[address] IV DYE Pembrolizumab High 10/10/2023 Other Reaction(s): myocarditis documented as of this encounter (statuses as of 12/16/2023) Medications Medication Sig Dispensed Refills Start Date [...] 90 Capsule 1 11/12/2023 Active [facility] Wound/Burn Dressing External GelIndications:Pr essure injury of [...] by mouth in the morning. 0 Active documented as of this encounter (statuses as of 12/16/2023) Active Problems Problem Noted Date Diagnosed Date [...] as of this encounter (statuses as of 12/16/2023) Resolved Problems Problem Noted Date Diagnosed Date [...] as of this encounter (statuses as of 12/16/2023) Immunizations Name Administration Dates Next Due COVID-19 mRNA, LNP-s, No Pre serve, 2-Dose Series (Stilnest) 05/30/2021,10/29/2020,10/08/2020 COVID-19, LNP-s, No Preserve , Prosper-sucrose, Ages 12+ (Stilnest) 02/11/2022 Pneumococcal Conjugate Vacc, 13 Valent (Prevnar) [...] Sign Reading Time Taken Comments Blood Pressure 118/62 12/16/2023 4:26 PM EDT Pulse 91 12/16/2023 4:26 PM EDT Temperature 37.7 C (99.8 F) 12/16/2023 4:26 PM ED T Respiratory Rate 16 12/16/2023 4:26 PM EDT Oxygen Saturation 97% 12/16/2023 4:26 PM EDT Inhaled Oxygen Concentration - - Weight 93.4 kg (206 lb) 12/16/2023 4:26 PM EDT Height 190.5 cm (6' 3") 12/16/2023 4:26 PM EDT Body Mass Index 25.75 12/16/2023 4:26 PM EDT documented in this encounter Functional [...] as of this encounter Progress Notes * Radha Caballero CRNP - 12/16/2023 4:41 PM EDT [facility] Branden High is a 78 year old male seen today for follow-up. Initially presented for sleep testing in 2018 with history of ANDRZEJ intolerant to CPAP, with reports of snoring, waking gasping for breath, non restorative sleep and excessive daytime sleepiness. -PSG 03/14/2018 (wt 274 lb): AHI 5.4, REM AHI 4.9, SpO2 jayson 89%, PLMI 5.4 -AutoCPAP initiated Interim History: Presents with his today who reports that he has been in and out of the hospital and assisted living in the past year resulting in him stopping CPAP therapy. Currently at [facility]. He never received a replacement unit from [employer]. Without CPAP her finds that his sleep is more fragmented, not sleeping as long. He's tired on waking but has no morning headaches. His energy is low. Will nap 1-2x/day by his report but his notes that he nodes off and on. Compliance Data: Not available Equipment: DME Provider: [employer] Device: Leostream Settings: 6-12 cmH20 Interface Type: FFM [place] Sleepiness Scale Question 12/16/2023 4:31 PM EDT - Filed by Rocio Almonte LPN What is the chance you will doze off in the following situation? Sitting and reading Moderate chance of dozing Watching TV Moderate chance of dozing Sitting inactive in a public place, such as a theater or meeting Moderate chance of dozing As a passenger in a car for an hour without a break Moderate chance of dozing Lying down to rest in the afternoon when circumstances permit Moderate chance of dozing When sitting and talking to someone Moderate chance of dozing When sitting quietly after lunch without alcohol Moderate chance of dozing In a car, while stopped for a few minutes in traffic No chance of dozing Score (range: 0 - 24) 14 Problem List: Patient Active Problem List Diagnosis Code ANGIOEDEMA T78.3XXA Deviated nasal septum J34.2 HTN (hypertension) I10 Chronic steroid use 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 Adrenal insufficiency (HCC) E27.40 Moderate persistent asthma [...] 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 Malnutrition of moderate degree ([facility]) E44.0 Orthostatic hypotension I95.1 S/P IVC filter Z95.828 Acute deep vein thrombosis (DVT) of femoral vein of right lower extremity ([facility]) I82.411 Myocarditis ([facility]) I51.4 Current Medications: Outpatient Medications Marked as Taking for the 12/16/23 encounter (Office Visit) with Radha Caballero CRNP Medication Sig predniSONE 20 MG Oral Tablet (Deltasone) TAKE 4 TABLETS BY MOUTH EVERY MORNING WITH FOOD Donepezil HCl 10 MG Oral Tablet (Aricept) TAKE 1 TABLET BY MOUTH EVERY MORNING WITH LARGEST MEAL OFTHE DAY. Memantine HCl 10 MG Oral Tablet (Namenda) TAKE 1 TABLET BY MOUTH TWO TIMES DAILY WITH MORNING AND EVENING MEALS. [facility] Wound/Burn Dressing External Gel Apply topically to affected area daily. Apply to pressure ulcer of buttocks. Omeprazole 20 MG Oral Capsule Delayed Release (PriLOSEC) Take 1 Capsule by mouth in the morning. busPIRone HCl 5 MG Oral Tablet (Buspar) Take 0.5 Tablets by mouth in the morning and 0.5 Tablets atnoon and 0.5 Tablets before bedtime. (Patient taking differently: Take 1 Tablet by mouth in the morning and 1 Tablet at noon and 1 Tablet before bedtime.) Midodrine HCl 2.5 MG Oral Tablet (Proamatine) Take 1 Tablet by mouth 3 times a day. Take at 8 am, noon, 4 pm Sulfamethoxazole-Trimethoprim 800-160 MG Oral Tablet (Bactrim DS) 1 tablet 3 days a week ( Wednesday, Wednesday, Wednesday). Acetaminophen 325 MG Oral Capsule Take 650 mg by mouth every 4 hours as needed for Pain (fever or pain). EpiPen 2-Pedro 0.3 MG/0.3ML Injection Solution Auto-injector USE DIRECTED Montelukast Sodium 10 MG Oral Tablet (Singulair) Take 1 Tablet by mouth in the morning. Trelegy Ellipta 200-62.5-25 MCG/ACT Aerosol Powder Breath Activated (Gagwzkutart-Weyzjwzunktk-Gzvqgbltud) Inhale 1 Puff by mouth every evening. Fluticasone Propionate 50 MCG/ACT Nasal Suspension (Flonase) SPRAY 2 SPRAYS INTO EACH NOSTRIL IN THE MORNING Syringe/Needle, Disp, 25G X 1-1/2" 3 ML MISC To use with injection of hydrocortisone if needed Physical Exam: BP 118/62 | Pulse 91 | Temp 37.7 C (99.8 F) (Tympanic) | Resp 16 | Ht 1.905 m (6' 3") | Wt 93.4kg (206 lb) | SpO2 97% | BMI 25.75 kg/m | BSA 2.22 m Constitutional: Alert, oriented and in no acute distress seated in wheelchair, accompanied by Cardio: Regular rate and rhythm, +murmur Chest: Normal respiratory effort at rest, equal breath sounds, clear to auscultation Neuro: Fluent speech Psych: Appropriate mood and affect. Assessment & Plan: Encounter Diagnoses Name Primary? Obstructive sleep apnea Yes Hypersomnia Mild obstructive sleep apnea based on AHI criteria associated with hypersomnia diagnosed in 2018. Weight is down from initial diagnosis. He has been off of CPAP over the past 10 months due to being in and out of the hospital and other healthcare facilities. He feels his sleep quality is worse off CPAP. His CPAP is >5 years old, obsolete and may not be working appropriately. A replacement CPAP has been ordered. Use of CPAP during all periods of sleep was recommended. Agreeable to in lab PSG at [facility] if necessary by insurance. Follow-up in 6 months. JOSÉ ANTONIO Yousif Pulmonary & Sleep Medicine [facility] I spent a total of 20-29 minutes (exact time 25 mins) on the date of service in preparation, delivery, and documentation of the care provided to Branden High excluding any time spent in the performance of separately billed services. documented in this encounter Nursing Notes * Rocio Almonte LPN - 12/16/2023 4:32 PM EDT Chief Complaint Patient presents with Follow Up Here return sleep . Hasn't used CPAP 8-9 was recalled and sent back and he never got new one. [place] Sleepiness Scale Question 12/16/2023 4:31 PM EDT - Filed by Rocio Almonte LPN What is the chance you will doze off in the following situation? Sitting and reading Moderate chance of dozing Watching TV Moderate chance of dozing Sitting inactive in a public place, such as a theater or meeting Moderate chance of dozing As a passenger in a car for an hour without a break Moderate chance of dozing Lying down to rest in the afternoon when circumstances permit Moderate chance of dozing When sitting and talking to someone Moderate chance of dozing When sitting quietly after lunch without alcohol Moderate chance of dozing In a car, while stopped for a few minutes in traffic No chance of dozing Score (range: 0 - 24) 14 documented in this encounter Plan of Treatment Upcoming Encounters Date Type Department Care Team (Late st Contact Info) Description 12/24/2023 2:30 PM EDT Office Visit Otolaryngology [facility] [address] [facility] [place] [address] Dioni Jean-Baptiste DO [address] [place] [address] 01/20/2024 3:00 PM EDT Office Visit Cardiology, [facility] [address] [facility] [place] [address] Skye Gonzales CRNP [address] [place] [address] 02/10/2024 7:15 AM EDT Cardiac Studies Cardiac Studies, [facility] [address] [facility] [place] [address] 04/12/2024 2:15 PM EDT Office Visit Hematology/Oncology [facility] [address] [facility] [place] [phone] Xavi Gramajo MD [address] [facility] [place] [address] 04/21/2024 2:40 PM EDT Office Visit [facility] [address] [place] [phone] Chuy Batista MD [address] [place] [address] Health Maintenance Due Date Last Done Comments Albumin/Creatinine Ratio 1963 DTaP,Tdap,and Td Vaccines (1 - Tdap) 1964 Depression Screening 04/29/2021 04/29/2020 COVID-19 Vaccine ( - season) 2023 07/22/2022, 07/22/2022, 02/11/2022, Additional history exists Influenza Vaccine (FLU shot) (Season Ended) 2024 05/29/2022, 05/27/2021, 06/13/2020, Additional history exists GFR 05/14/2024 11/12/2023, 10/15, 10/25/2023, Additional history exists CKD PHOS USE SMARTSET 71119 09/11/202408/17, 09/11/2023, 07/14/2021, Additional history exists CKD HGB USE SMARTSET 88350 12/12/202412/12, 11/12/2023, 11/12/2023, Additional history exists Pneumococcal [...] as of this encounter Visit Diagnoses Diagnosis Obstructive sleep apnea- Primary Obstructive sleep apnea (adult) (pediatric) Hypersomnia Hypersomnia, unspecified documented in this encounter Advance Directives Latest [...] the patient have Health Care Power of Medication Technician? No Care Teams Water Quality Technician Relationship Specialty Start Date End Date Chuy Batista MD [address] [place] [address] PCP - General Family Medicine 07/11/14 documented as of this encounter
--- OUTSIDE RECORDS SUMMARY | 2024-01-04 20:44 | External Medical Summary | Summary of Care ---
Author Name Unknown Organization [facility] Address [address] [place] [address] Phone [phone] Care Team Providers Care Fleet Service Clerk Name Role Phone Chuy Batista MD Primary Care Provider +1- [phone] Encounter Details Date Type Department Care Team (Late st Contact Info) Description 12/23/2023 Telephone [facility] [address] [place] [address] Chuy Batista MD [address] [place] [address] Allergies Active Allergy Reactions Criticality [...] 90 Capsule 1 11/12/2023 Active [facility] Wound/Burn Dressing External GelIndications:Pr essure injury [...] 03/27/2019 Overview: basal cell carcinoma (L lower galvaiz 03/02) ANDRZEJ (obstructive sleep apnea) 08/19/2018 Prostate [...] mRNA, LNP-s, No Pre serve, 2-Dose Series ([facility]) 05/30/2021,10/29/2020,10/08/2020 COVID-19, LNP-s, No Preserve , [...] let patient know that she can ask [facility] to addend or include in the discharge [...] will need to see if provider's at [facility] will write or if it can wait until he has a follow up appt here. * Telephone Encounter - Ania Neal OSA - 12/23/2023 1:14 PM EDT Patient is getting discharged from [facility] tomorrow (12.24.2023). Patient needs a hospital bed as when patient went to the hospital they took the hospital bed. Placed Insurance Requirements for [employer] [facility] form on Dr. Batista's desk so that the order can be faxed to [facility]. It will need to be faxed to [facility] at [phone] when order is completed. Thank you. documented in this encounter Plan of Treatment Upcoming Encounters Date Type Department Care Team (Late st Contact Info) Description 12/24/2023 2:30 PM EDT Office Visit Otolaryngology [facility] [address] [address] Dioni Jean-Baptiste DO [address] [place] [address] Arrived 12/27/2023 10:40 AM EDT Office Visit [facility] [address] [place] [phone] Damaris Beyer MD [address] [place] [address] 01/20/2024 3:00 PM EDT Office Visit Cardiology, [facility] [address] [place] [address] Skye Gonzales CRNP [address] [facility] [place] [address] 02/07/2024 10:15 AM EDT Procedure Only Urology, [place] [address] [place] [address] Ernesto Villareal MD [address] [place] [address] 02/10/2024 7:15 AM EDT Cardiac Studies Cardiac Studies, [facility] [address] [place] [address] 04/12/2024 2:15 PM EDT Office Visit Hematology/Oncology [facility] [address] [facility] [place] [phone] Xavi Gramajo MD [address] [facility] [place] [address] 04/21/2024 2:40 PM EDT Office Visit [facility] [address] [place] [phone] Chuy Batista MD [address] [place] [address] Health Maintenance Due Date Last Done Comments Albumin/Creatinine Ratio 1963 DTaP,Tdap,and Td Vaccines (1 - Tdap) 1964 Depression Screening 04/29/2021 04/29/2020 COVID-19 Vaccine ( - season) 2023 07/22/2022, 07/22/2022, 02/11/2022, Additional history exists Influenza Vaccine (FLU shot) (Season Ended) 2024 05/29/2022, 05/27/2021, 06/13/2020, Additional history exists GFR 05/14/2024 11/12/2023, 10/15, 10/25/2023, Additional history exists CKD PHOS USE SMARTSET 35335 09/11/202408/17, 09/11/2023, 07/14/2021, Additional history exists CKD HGB USE SMARTSET 50238 12/12/202412/12, 11/12/2023, 11/12/2023, Additional history exists Pneumococcal [...] the patient have Health Care Power of Tab Machine Operator? No Care Teams Fleet Service Clerk Relationship Specialty Start Date End Date Chuy Batista MD [address] [facility] [place] [address] PCP - General Family Medicine 07/11/14 documented as of this encounter
--- OUTSIDE RECORDS SUMMARY | 2024-01-04 20:44 | External Medical Summary ---
Author Name Unknown Address Unknown Organization K01:[facility] [address] [place] [address] Laboratory Report Ordering Provider Test Date Status EVELYN STUBBS 12/15/2023 14:45:50 Final Observation Date Value Abnormality Reference (Units ) Status Ferritin 12/15/2023 14:45:50 567 Above high normal 30 -400 (ng/mL) Final Performing Location [facility] - [address] [place] [address]
--- OUTSIDE RECORDS SUMMARY | 2024-01-04 20:44 | External Medical Summary | Summary of Care ---
Author Name Unknown Organization [facility] Address [address] [facility] [place] [address] Phone [phone] Care Team Providers Care Graphic Illustrator Name Role Phone Chuy Batista MD Primary Care Provider +1- [phone] Encounter Details Date Type Department Care Team (Late st Contact Info) Description 12/17/2023 Telephone Pulmonary Medicine, [facility] [address] [place] [address] Radha Caballero CRNP [address] [place] [address] Allergies Active Allergy Reactions Criticality Noted Date Comments Chocolate Diarrhea 05/14/2023 Chocolate Flavor High 10/09/2023 Other Reaction(s): DIARRHEA/ Cannot take, interacts w/ medications. Clindamycin Hcl 09/24/2005 rash Cranberry 10/20/2023 Iodinated Contrast Media 10/01/2015 Ioversol Other (Please comment) High 08/10/[address] IV DYE Pembrolizumab High 10/10/2023 Other Reaction(s): myocarditis documented as of this encounter (statuses as of 12/17/2023) Medications Medication Sig Dispensed Refills Start Date [...] the morning. 90 Capsule 1 11/12/2023 Active [facility] Wound/Burn Dressing External GelIndications:Pr essure injury [...] as of this encounter (statuses as of 12/17/2023) Active Problems Problem Noted Date Diagnosed Date [...] as of this encounter (statuses as of 12/17/2023) Resolved Problems Problem Noted Date Diagnosed Date [...] as of this encounter (statuses as of 12/17/2023) Immunizations Name Administration Dates Next Due COVID-19 mRNA, LNP-s, No Pre serve, 2-Dose Series ([employer]) 05/30/2021,10/29/2020,10/08/2020 COVID-19, LNP-s, No Preserve , Prosper-sucrose, [...] encounter Miscellaneous Notes * Telephone Encounter - Domitila Yepez OSA - 12/17/2023 11:55 AM EDT Replacement CPAP order entered into . documented in this encounter Plan of Treatment Upcoming Encounters Date Type Department Care Team (Late st Contact Info) Description 12/24/2023 2:30 PM EDT Office Visit Otolaryngology [facility] [address] [facility] [place] [address] Dioni Jean-Baptiste DO [address] [place] [address] 01/20/2024 3:00 PM EDT Office Visit Cardiology, [facility] [address] [facility] [place] [address] Skye Gonzales CRNP [address] [place] [address] 02/10/2024 7:15 AM EDT Cardiac Studies Cardiac Studies, [facility] 132 [facility] [place] [address] 04/12/2024 2:15 PM EDT Office Visit Hematology/Oncology [facility] [address] [facility] [place] [phone] Xavi Gramajo MD [address] [facility] [place] [address] 04/21/2024 2:40 PM EDT Office Visit [facility] [address] [place] [facility] [place] [phone] Chuy Batista MD [address] [place], [place] [phone] Health Maintenance Due Date Last Done Comments Albumin/Creatinine Ratio 1963 DTaP,Tdap,and Td Vaccines (1 - Tdap) 1964 Depression Screening 04/29/2021 04/29/2020 COVID-19 Vaccine ( season) 2023 07/22/2022, 07/22/2022, 02/11/2022, Additional history exists Influenza Vaccine (FLU shot) (Season Ended) 2024 05/29/2022, 05/27/2021, 06/13/2020, Additional history exists GFR 05/14/2024 11/12/2023, 10/15, 10/25/2023, Additional history exists CKD PHOS USE SMARTSET 78438 09/11/202408/17, 09/11/2023, 07/14/2021, Additional history exists CKD HGB USE SMARTSET 35191 12/12/202412/12, 11/12/2023, 11/12/2023, Additional history exists Pneumococcal [...] the patient have Health Care Power of Radiology Teacher? No Care Teams Graphic Illustrator Relationship Specialty Start Date End Date Chuy Batista MD [address] [place] [address] PCP - General Family Medicine 07/11/14 documented as of this encounter
--- OUTSIDE RECORDS SUMMARY | 2024-01-04 20:44 | External Medical Summary | Summary of Care ---
Author Name Unknown Organization [facility] Address [address] [facility] [place] [address] Phone [phone] Care Team Providers Care Firestopper Installer Name Role Phone Chuy Batista MD Primary Care Provider +1- [phone] Reason for Visit * Reason Comments Follow Up Encounter Details Date Type Department Care Team (Latest Contact Info) Description 12/15/2023 2:00 PM EDT Office Visit Hematology/Oncology [facility] [place] [address] [facility] [place] [phone] Xavi Gramajo [facility] [address] Urothelial carcinoma of bladder (HCC)*; Adrenal insufficiency (HCC); Anemia, unspecified type; Iron deficiency anemia due to chronic blood loss Allergies Active Allergy Reactions Criticality Noted Date Comments Chocolate Diarrhea 05/14/2023 Chocolate Flavor High 10/09/2023 Other Reaction(s): DIARRHEA/ Cannot take, interacts w/ medications. Clindamycin Hcl 09/24/2005 rash Cranberry 10/20/2023 Iodinated Contrast Media 10/01/2015 Ioversol Other (Please comment) High 08/10/[address] IV DYE Pembrolizumab High 10/10/2023 Other Reaction(s): myocarditis documented as of this encounter (statuses as of 12/15/2023) Medications Medication Sig Dispensed Refills Start Date [...] the morning. 90 Capsule 1 11/12/2023 Active [facility] Wound/Burn Dressing External GelIndications:Pr essure injury [...] as of this encounter (statuses as of 12/15/2023) Active Problems Problem Noted Date Diagnosed Date [...] as of this encounter (statuses as of 12/15/2023) Resolved Problems Problem Noted Date Diagnosed Date [...] as of this encounter (statuses as of 12/15/2023) Immunizations Name Administration Dates Next Due COVID-19 mRNA, LNP-s, No Pre serve, 2-Dose Series ([employer]) 05/30/2021,10/29/2020,10/08/2020 COVID-19, LNP-s, No Preserve , Prosper-sucrose, [...] Sign Reading Time Taken Comments Blood Pressure 107/71 12/15/2023 2:10 PM EDT Pulse 96 12/15/2023 2:10 PM EDT Temperature 37.2 C (99 F) 12/15/2023 2:10 PM EDT Respiratory Rate 18 12/15/2023 2:10 PM EDT Oxygen Saturation 95% 12/15/2023 2:10 PM EDT Inhaled Oxygen Concentration - - Weight 93.4 kg (206 lb) 12/15/2023 2:10 PM EDT Height - - Body Mass Index 25.75 11/12/2023 3:09 PM EDT documented in this encounter Functional [...] Progress Notes * Xavi Gramajo MD - 12/15/2023 2:00 PM EDT Hematology/Oncology Outpatient Consult Note Radha Choi [address] [facility] [place] [address] BRANDEN HIGH MR # [id number] :1945 78-years old male, Date of consultation:10/06/2023 DIAGNOSIS: - 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 He has IVC filer. 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 Severe contrast allergy so no IV contrast in his case. CURRENT TREATMENT: - started on prednisone at 100 mg once a day since 09/12/2023 ( started when he was admitted at [facility]). - as of 12/15/2023 he is on prednisone at 10 mg per day. -he is on Bactrim prophylaxis. He is on omeprazole prophylaxis. He takes oral iron supplementation. DIAGNOSTIC WORKUP: Previous history of prostate cancer noted, he had radiation treatment about 6 years back I do not have those records for the review. 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 Gross hematuria in March 2023, CT scan of the abdomen pelvis without contrast on 04/09/2023 at [facility] 1. 2 mm right renal calculi. No [...] carcinoma. - No invasive carcinoma identified (AJCC: air grinder). - Muscularis propria present within specimen. - The majority of the carcinoma that is well-visualized is low-grade Bladder, transurethral resection by Dr. Aguiar on 06/29/2023: - Low grade papillary urothelial carcinoma. - No invasive carcinoma identified (AJCC: air grinder). - No muscularis propria identified within specimen. [...] declining performed status, he was admitted at [facility], further workup asfollows, subsequently he was admitted at [facility] and then transferred at [facility] from where he was discharged on 09/14/2023. CT scan of the abdomen pelvis without contrast on 08/19/2023 at [facility]: -thickening of the bladder wall with multiple [...] <=22 ng/L 807 (HH) 615 (HH) 682 () Troponin T, High Sensitivity 806 () Troponin T, High Sensitivity 794 () Troponin T, High Sensitivity 800 () ECHO on 09/11/2023: Interpretation Summary The qualitative [...] came to the clinic in a wheelchair. Currently he is at [place] , on prednisone at 10 mg per day. Last one month gradual improvement of his clinical condition, he is having physical therapy, in the next few days he is going home. Recently hewas evaluated by urologist, had cystoscopic evaluation, no gross residual disease noted, they are planning to have cystoscopic evaluation every 3 monthly (01/2024). Overall has fair appetite, weight loss, current weight around 206 lb, not much ambulating, No fever. He is on Bactrim prophylaxis. Recently he was admitted at [facility], he has Devlin's catheter, has some hematuria. Past Medical History: Diagnosis Date Adrenal insufficiency (HCC) 04/23/2015 Allergic rhinitis 2006 Chronic anticoagulation 04/13/2017 Chronic rhinitis 2006 Chronic sinusitis 2006 Deviated nasal septum 2006 [...] Ellipta 200-62.5-25 MCG/ACT Aerosol Powder Breath Activated (Tfxewjcpvpr-Jznejbofoyez-Hxdrbwbxnm) Inhale 1 Puff by mouth every evening. [...] by mouth in the morning. 90Capsule 1 [facility] Wound/Burn Dressing External Gel Apply [...] 1 Capsule by mouth in the morning. No current [...] Exam: Examination done in the wheelchair BP 107/71 (BP Site: Left Arm, BP Position: Sitting, BP Cuff Size: Regular) | Pulse 96 | Temp 37.2 C (99 F) (Tympanic) | Resp 18 | Wt 93.4 kg (206 lb) | SpO2 95% | BMI 25.75 kg/m | BSA 2.22 m Constitutional: Patient is alert, cooperative and [...] SPINE: No spinal or paraspinal tenderness. LABS: - Troponin T --> 58, CK --> 24 (12/13/2023). On 12/15/2023 at [facility]: -WBC 7600, H&H of 11.6/36.8, Platelet count of 561180 -BUN/Creat: 26/1.1 -normal liver function test. Total protein 5.2, albumin 3.2. -Calcium 8.2 IMAGING: Nuclear medicine pulmonary perfusion testing on 09/11/2023 --> no evidence of pulmonary embolism on this perfusion only exam. CT scan of the abdomen pelvis on 09/09/2023 at [facility]: 1. Mild wall thickening and slight surrounding inflammation involving the urinary bladder suggesting hypertrophy from chronic bladder outlet obstruction and/or cystitis. 2 diverticula are present measuring up to 2. 5 cm. 2. There is an IVC filter in place located 4 cm inferior to the renal veins and 2.5 cm superior to the iliac vein confluence. 3. The kidneys appear within normal limits. No hydronephrosis or ureterolithiasis is seen. 4. The appendix is no visible. Bowel loops are nondilated. No acute inflammatory changes are seen involving the bowel. 5. 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 No fracture is seen. CT chest on 10/10/2023 1. The heart is borderline enlarged. There is a trace pericardial effusion. Moderate aortic and coronary calcification is present. 2. Atelectasis and/or scarring in the right lower lobe, increased compared to previous. The lungs are otherwise clear. CT head without contrast on 11/23/2023 at [facility]--> no acute intracranial hemorrhage, no infarction or other acute findings noted. ASSESSMENT AND PLAN: 78-year-old male, Who has non muscle invasive bladder cancer diagnosed in April 2023. Before that he had intermittent hematuria related to the radiation induced the cystitis (radiation treatment was given for the prostate cancer about 5 to 6 years back). Had TURBT x3 but now he is unrese [facility] ctable and so he received 1st dose [...] cardiac MRI and the elevated troponin, He was started on oral prednisone 100 mg once a day since last week of August 2023. Currently he is on oral prednisone 10 mg every day, He is likely to go home from [facility] in the next few days. I reviewed his blood workup done today, overall stable blood counts other than mild anemia, stable kidney liver function, CPK, troponin Ts trending down. Recently he was seen by urologist at [facility], that planning to get cystoscopy every 3 monthly. He will continue Bactrim prophylaxis. He has underlying Seiling's disease, he will continue current treatment with prednisone 10 mg once a day which was his usual baseline steroid treatment. He should continue to have Endocrinology follow-up. Would like to check B12, folic acid Ferritin, iron profile. If he is evidence of iron deficient, will consider for intravenous iron the form Venofer. I am planning to see him back in the clinic about [address] Xavi Gramajo Hem/Onc documented in this encounter Nursing Notes * Maribel Foss MED ASSIST - 12/15/2023 2:13 PM EDT Patient identifed by name and birthdate Do you have any concerns about pain management for today's visit? No Living Will or Advance Directive for Health Care as noted on the problem list. [facility] is a way you can talk to your provider on line through e-mail. Would you like to sign up? I can activate it for you? ALREADY ACTIVE Filed Vitals: 12/15/23 1410 BP: 107/71 Pulse: 96 Resp: 18 Temp: 37.2 C (99 F) TempSrc: Tympanic SpO2: 95% Weight: 93.4 kg (206 lb) Patient was instructed to not get up [...] PM EDT Office Visit [facility] [address] [place] [phone] Radha Caballero CRNP [address] [place] [address] 12/24/2023 2:30 PM EDT Office Visit Otolaryngology [facility] [address] [place] [address] Dioni Jean-Baptiste DO [address] [place] [address] 01/20/2024 3:00 PM EDT Office Visit [facility], [facility] [place] [address] Skye Gonzales CRNP [address] [place] [address] 02/10/2024 7:15 AM EDT Cardiac Studies Cardiac Studies, [facility] [place] [address] 04/12/2024 2:15 PM EDT Office Visit Hematology/Oncology [facility] [address] [facility] [place], [place] [phone] Xavi Gramajo MD [address] [place] [address] 04/21/2024 2:40 PM EDT Office Visit [facility] [address] [place] [phone] Chuy Batista MD [address] [place] [address] Pending Results Name Type Priority Associated Diagnoses Date /Time IRON SCREEN, INCLUDING TIBC Lab Routine Urothelial carcinoma of bladder (HCC) Adrenal insufficiency (HCC) Anemia, unspecified type Iron deficiency anemia due to chronic blood loss 12/15/2023 2:45 PM EDT FERRITIN Lab Routine Urothelial carcinoma of bladder (HCC) Adrenal insufficiency (HCC) Anemia, unspecified type Iron deficiency anemia due to chronic blood loss 12/15/2023 2:45 PM EDT FOLIC ACID Lab Routine Urothelial carcinoma of bladder (HCC) Adrenal insufficiency (HCC) Anemia, unspecified type Iron deficiency anemia due to chronic blood loss 12/15/2023 2:45 PM EDT VITAMIN B12 Lab Routine Urothelial carcinoma of bladder (HCC) Adrenal insufficiency (HCC) Anemia, unspecified type Iron deficiency anemia due to chronic blood loss 12/15/2023 2:45 PM EDT Health Maintenance Due Date Last Done Comments Albumin/Creatinine Ratio 1963 DTaP,Tdap,and Td Vaccines (1 - Tdap) 1964 Depression Screening 04/29/2021 04/29/2020 COVID-19 Vaccine ( season) 2023 07/22/2022, 07/22/2022, 02/11/2022, Additional history exists Influenza Vaccine (FLU shot) (Season Ended) 2024 05/29/2022, 05/27/2021, 06/13/2020, Additional history exists GFR 05/14/2024 11/12/2023, 10/15, 10/25/2023, Additional history exists CKD PHOS USE SMARTSET 77675 09/11/202408/17, 09/11/2023, 07/14/2021, Additional history exists CKD HGB USE SMARTSET 38504 12/12/202412/12, 11/12/2023, 11/12/2023, Additional history exists Pneumococcal [...] Diagnosis Urothelial carcinoma of bladder (HCC)- Primary Adrenal insufficiency (HCC) Glucocorticoid deficiency Anemia, unspecified type Iron deficiency anemia due to chronic blood loss Iron deficiency anemia secondary to blood loss (chronic) documented in this encounter Advance Directives Latest [...] the patient have Health Care Power of Tower Helper? No Care Teams Firestopper Installer Relationship Specialty Start Date End Date Chuy Batista MD [address] [place] [address] PCP - General Family Medicine 07/11/14 documented as of this encounter
--- OUTSIDE RECORDS SUMMARY | 2024-01-04 20:44 | External Medical Summary | Summary of Care ---
Author Name Unknown Organization [facility] Address [address] [place] [address] Phone [phone] Care Team Providers Care Sales Merchandising Specialist Name Role Phone Chuy Batista MD Primary Care Provider [phone]- [phone] Reason for Visit * Reason Onset Date Comments Advice 09/23/2023 Encounter Details Date Type Department Care Team (Late st Contact Info) Description 09/23/2023 Telephone [facility] [address] [place] [address] Chuy Batista MD [address] [place] [address] Advice Allergies Active Allergy Reactions Criticality Noted Date Comments Chocolate Diarrhea 05/14/2023 Chocolate Flavor High 10/09/2023 Other Reaction(s): DIARRHEA/ Cannot take, interacts w/ medications. Clindamycin Hcl 09/24/2005 rash Cranberry 10/20/2023 Iodinated Contrast Media 10/01/2015 Ioversol Other (Please comment) High 08/10/[address] IV DYE Pembrolizumab High 10/10/2023 Other Reaction(s): myocarditis documented as of this encounter (statuses as of 12/23/2023) Medications Medication Sig Dispensed Refills Start Date End Date Status Syringe/Needle , Disp, 25G X 1-1/2" 3 ML MISC To use with injection of hydrocortisone if needed 2 Each 5 6 Active Fluticasone Propionate 50 MCG/ACT Nasal Suspension (Flonase) SPRAY 2 SPRAYS INTO EACH NOSTRIL IN THE MORNING 16 mL 3 3 Active Trelegy Ellipta 200-62.5-25 MCG/ACT Aerosol Powder Breath Activated (Fluticasone-U meclidinium-Vi lanterol) Inhale 1 Puff by mouth every evening. 60 Blister Dosing Unit 11 3 Active EpiPen 2-Pedro 0.3 MG/0.3ML Injection Solution Auto-injectorI ndications:Janene phylaxis, sequela USE DIRECTED 1 Each 0 3 Active Multi Adult Gummies Oral Tablet [...] Tablets by mouth every morning. 0 Active Memantine HCl 10 MG Oral Tablet (Namenda) Take 1 Tablet by mouth 2 times a day with morning and evening meals. 180 Tablet 3 3 11/13/19 24 Discontinued Montelukast Sodium 10 MG Oral Tablet (Singulair)Ind ications:Chron ic allergic rhinitis Take 1 Tablet by mouth in the morning. 90 Tablet 3 3 12/17/19 24 Discontinued(Re fill) Donepezil HCl 10 MG Oral Tablet (Aricept) TAKE 1 TABLET BY MOUTH EVERY MORNING WITH LARGEST MEAL OF THE DAY. 90 Tablet 0 4 11/13/19 24 Discontinued Omeprazole 20 MG Oral Capsule Delayed Release (PriLOSEC) Take 1 Capsule by mouth in the morning. 30 Capsule 1 4 11/12/19 24 Discontinued(Re fill) documented as of this encounter (statuses as of 12/23/2023) Active Problems Problem Noted Date Diagnosed Date [...] as of this encounter (statuses as of 12/23/2023) Resolved Problems Problem Noted Date Diagnosed Date [...] as of this encounter (statuses as of 12/23/2023) Immunizations Name Administration Dates Next Due COVID-19 mRNA, LNP-s, No Pre serve, 2-Dose Series ([employer]) 05/30/2021,10/29/2020,10/08/2020 COVID-19, LNP-s, No Preserve , Prosper-sucrose, [...] encounter Miscellaneous Notes * Telephone Encounter - Kevin Irwin OSA - 09/23/2023 1:32 PM EST Reason for patient's call: Appointment Caller was transferred to [place] at the clinic. documented in this encounter Plan of Treatment Upcoming Encounters Date Type Department Care Team (Late st Contact Info) Description 12/24/2023 2:30 PM EDT Office Visit Otolaryngology [facility] 132 [facility] [place] [address] Dioni Jean-Baptiste DO 132 [facility] [place] [address] 12/27/2023 10:40 AM EDT Office Visit [facility] [address] [place] [address] Damaris Beyer MD [address] [place] [address] 01/20/2024 3:00 PM EDT Office Visit Cardiology, [facility] 132 [facility] [place] [address] Skye Gonzales CRNP [facility] [place] [address] 02/07/2024 10:15 AM EDT Procedure Only Urology, [place] [address] [facility] [place] [phone] Ernesto Villareal MD [address] [place] [facility] [place] [address] 02/10/2024 7:15 AM EDT Cardiac Studies Cardiac Studies, [facility] [address] [place] [address] 04/12/2024 2:15 PM EDT Office Visit [facility]ematology/On[facility] [address] [facility] [place] [phone] Xavi Gramajo MD [address] [facility] [place] [address] 04/21/2024 2:40 PM EDT [facility] [address] [facility] [phone] Chuy Batista MD [address] [place] [address] Health Maintenance Due Date Last Done Comments Albumin/Creatinine Ratio 1963 DTaP,Tdap,and Td Vaccines (1 - Tdap) 1964 Depression Screening 04/29/2021 04/29/2020 COVID-19 Vaccine ( season) 2023 07/22/2022, 07/22/2022, 02/11/2022, Additional history exists Influenza Vaccine (FLU shot) (Season Ended) 2024 05/29/2022, 05/27/2021, 06/13/2020, Additional history exists GFR 05/14/2024 11/12/2023, 10/15, 10/25/2023, Additional history exists CKD PHOS USE SMARTSET 42063 09/11/202408/17, 09/11/2023, 07/14/2021, Additional history exists CKD HGB USE SMARTSET 92414 12/12/202412/12, 11/12/2023, 11/12/2023, Additional history exists Pneumococcal [...] the patient have Health Care Power of Chief Radiology? No Care Teams Sales Merchandising Specialist Relationship Specialty Start Date End Date Chuy Batista MD [address] [place] [address] PCP - General Family Medicine 07/11/14 documented as of this encounter
--- OUTSIDE RECORDS SUMMARY | 2024-01-04 20:44 | External Medical Summary ---
Author Name Unknown Address Unknown Organization [id number]:LABORATORY [facility] - [address] [place] [address] Laboratory Report Ordering Provider Test Date Status EVELYN STUBBS 12/15/2023 14:45:50 Final Observation Date Value Abnormality Reference (Units ) Status Iron 12/15/2023 14:45:50 22 Below low normal 45-176 (ug/dL) Final Iron-binding capacity 12/15/2023 14:45:50 193 Below low normal 250-425 (ug/dL) Final Transferrin Sat % 12/15/2023 14:45:50 11 Below low normal 15-55 (%) Final Performing Location LABORATORY [facility] - [address] [place] [address]
--- OUTSIDE RECORDS SUMMARY | 2024-01-04 20:44 | External Medical Summary ---
Author Name Unknown Address Unknown Organization [id number]:LABORATORY [facility] - [address] [place] [address] Laboratory Report Ordering Provider Test Date Status EVELYN STUBBS 12/15/2023 14:45:50 Final Observation Date Value Abnormality Reference (Units ) Status Folic Acid 12/15/2023 14:45:50 19.3 >4.5 (ng/ mL) Final Performing Location LABORATORY [facility] - [address] [place] [address]
--- OUTSIDE RECORDS SUMMARY | 2024-01-04 20:44 | External Medical Summary | Summary of Care ---
Author Name Unknown Organization [facility] Address [address] [place] [address] Phone [phone] Care Team Providers Care Field Support Specialist Name Role Phone Chuy Batista MD Primary Care Provider +1- [phone] Encounter Details Date Type Department Care Team (Late st Contact Info) Description 12/23/2023 Telephone [facility] [address] [place] [address] Chuy Batista MD [address] [place] [address] Allergies Active Allergy Reactions Criticality [...] the morning. 90 Capsule 1 11/12/2023 [facility] Dressing External GelIndications:Pr essure injury of [...] mRNA, LNP-s, No Pre serve, 2-Dose Series ([employer]) 05/30/2021,10/29/2020,10/08/2020 COVID-19, LNP-s, No Preserve , Prosper-sucrose, [...] EDT DME faxed to [facility]. Patient's aware. 12/24/2023 * Telephone Encounter - Chuy Batista MD - 12/23/2023 5:57 PM EDT DME printed and at my desk. The last time I saw him was 09/28/23. My note from that date already has the information for a semi-electric bed. I cannot addend another provider's note. If that note is not recent enough, will need to see if provider's at [facility] will write or if it can wait until he has a follow up appt here. * Telephone Encounter - Ania Neal OSA - 12/23/2023 1:14 PM EDT Patient is getting discharged from [facility] tomorrow (12.24.2023). Patient needs a hospital bed as when patient went to the hospital they took the hospital bed. Placed Insurance Requirements for a[employer] Electric Hsopital Bed form on Dr. Batista's desk so that the order can be faxed to [facility]. It will need to be faxed to [facility] at [phone] when order is completed. Thank you. documented in this encounter Plan of Treatment Upcoming Encounters Date Type Department Care Team (Late st Contact Info) Description 12/24/2023 2:30 PM EDT Office Visit Otolaryngology [facility] [address] [place] [address] Dioni Jean-Baptiste DO [address] [place] [address] 12/27/2023 10:40 AM EDT Office Visit [address] [place] [phone] Damaris Beyer MD [address] [place] [address] 01/20/2024 3:00 PM EDT Office Visit Cardiology, [facility] [address] [place] [address] Skye Gonzales CRNP [address] [place] [address] 02/07/2024 10:15 AM EDT Procedure Only Urology, [place] [address] [place] [address] Ernesto Villareal MD [address] [place] [address] 02/10/2024 7:15 AM EDT Cardiac Studies Cardiac Studies, [facility] [address] [place] [address] 04/12/2024 2:15 PM EDT Office Visit Hematology/Oncology [facility] 200 [place] [phone] Xavi Gramajo MD [address] [facility] [place] [address] 04/21/2024 2:40 PM EDT Office Visit Family [facility] [address] [place] [phone] Chuy Batista MD [address] [place] [address] Health Maintenance Due Date Last Done Comments Albumin/Creatinine Ratio 1963 DTaP,Tdap,and Td Vaccines (1 - Tdap) 1964 Depression Screening 04/29/2021 04/29/2020 COVID-19 Vaccine (6 season) 2023 07/22/2022, 07/22/2022, 02/11/2022, Additional history exists Influenza Vaccine (FLU shot) (Season Ended) 2024 05/29/2022, 05/27/2021, 06/13/2020, Additional history exists GFR 05/14/2024 11/12/2023, 10/15, 10/25/2023, Additional history exists CKD PHOS USE SMARTSET 10219 09/11/202408/17, 09/11/2023, 07/14/2021, Additional history exists CKD HGB USE SMARTSET 50810 12/12/202412/12, 11/12/2023, 11/12/2023, Additional history exists Pneumococcal [...] the patient have Health Care Power of Floating Derrick Operator? No Care Teams Field Support Specialist Relationship Specialty Start Date End Date Chuy Batista MD [address] [place] [address] PCP - General Family Medicine 07/11/14 documented as of this encounter
--- OUTSIDE RECORDS SUMMARY | 2024-01-04 20:45 | External Medical Summary ---
Author Name Unknown Address Unknown Organization [id number]:LAB[facility]ATORY [facility] - [address] [place] [address] Laboratory Report Ordering Provider Test Date Status EVELYN STUBBS 12/15/2023 14:45:50 Final Observation Date Value Abnormality Reference (Units ) Status Vitamin B12 12/15/2023 14:45:50 [phone] (pg/mL) Final Performing Location LABORATORY [facility] - [address] [place] [address]
[2024-01-04] MEDS ORDERED: NON-FORMULARY MEDICATION (Fluticasone-Umeclidin-Vilanter [Trelegy Ellipta] 200-62.5-25 mcg INH SCH (21:00)
[2024-01-04] MEDS: ACETAMINOPHEN 325 MG TAB PO PRN (21:10)
[2024-01-04] MEDS: BENZOCAINE 20% (ORAJEL) 11.9 GM TUBE MT PRN (23:10)
--- NOTE | 2024-01-05 02:49 | Communication Note ---
Date of Service: January 05, 2024 Patient complaining of left lower jaw dental pain since last week. No fever, no chills. SBP 180s. PPE No trismus Tenderness gingival area around left mandibular premolar. AP Hypertensive urgency Beginning odontogenic infection Resume prior home amlodipine Rx (start with low-dose given history of orthostasis) Unasyn followed by Augmentin for odontogenic infection OMFS (dental) consult as per patient request
[2024-01-05] MEDS: AMPICILLIN/SULBACTAM SOD 3,000 MG in SODIUM CHLOR 0.9% MINI-B 100 ML IV STA (03:49)
[2024-01-05] MEDS: amLODIPine BESYLATE 5 MG TAB PO SCH (03:52)
[2024-01-05] MEDS: ACETAMINOPHEN 325 MG TAB PO STA (03:53)
[2024-01-05 07:53] LABS: Hematocrit (blood only) 37.9 % (42.0-52.0); Hemoglobin 12.6 g/dl (14.0-18.0); Mean Corpuscular Hemoglobin 31.3 pg (25.0-34.0); Mean Corpuscular Hgb Conc 33.2 g/dL (32.0-36.0); Mean Platelet Volume 8.9 fL (9.4-12.4); Platelet Count 219 K/uL (130-400); RDW Standard Deviation 52.2 fL (36.4-46.3); Red Blood Count 4.03 M/uL (4.70-6.10); White Blood Count 8.33 K/ul (4.8-10.8)
[2024-01-05 08:26] LABS: BUN Creatinine Ratio 12.8 (10-20); Calcium 8.5 mg/dl (8.6-10.3); Creatinine Clr Calc Pharmacy 76.5 ml/min; Est GFR (African American) 90.3 ml/min; Est GFR (Non-African American) 77.9 ml/min; Potassium 3.4 mmol/L (3.5-5.1)
[2024-01-05 08:36] LABS: Folate (Folic Acid),Ser orPlas 11.34 ng/ml (>5.38)
[2024-01-05 08:46] LABS: Ferritin 182.2 ng/ml (8-388)
--- NOTE | 2024-01-05 08:57 | CT Scan Report ---
MAXILLOFACIAL CT CT DOSE: HISTORY: Dental abscess concern TECHNIQUE: Multiaxial CT images of the maxillofacial region were performed and reformatted in the cor onal plane without the use of contrast. A dose lowering technique was utilized adhering to the princ ipljin of CARLOS. COMPARISON: Maxillofacial CT 09/20/2014. FINDINGS: The visualized cervical spine, skull base, pterygoid plates, nasal bones, lamina papyracea, orbital floors, mandible, and zygomatic arches are intact. No fractures. The orbits are unremarkable . The right mastoid air cells are clear. There are few opacified left mastoid air cells. Mild mucosal thickening and small fluid levels within the sphenoid sinuses and left maxillary sinus. Dental artif act obscures the oral cavity. There are few scattered dental caries noted. No periapical lucencies id entified. No definite loculated fluid collections to suggest an abscess on this noncontrast study. IMPRESSION: Dental artifact obscures the oral cavity. There are few scattered dental caries noted. No periapical lucencies identified. No definite loculated fluid collections to suggest an abscess on this noncontra st study. ACT 112: Negative or not required by law. Electronically signed by: Des Harrison M.D. 01/05/2024 8:55 AM
[2024-01-05] MEDS ORDERED: NON-FORMULARY MEDICATION (Omeprazole 20 mg capsule,delayed release(DR/EC)) PO SCH (09:00)
--- NOTE | 2024-01-05 09:06 | Neurology Consultation ---
Date of Consultation January 05, 2024 Assessment & Plan (1) Tremor observed on examination: (2) Mild cognitive impairment: (3) Ambulatory dysfunction: (4) Generalized weakness: Plan 78 yo man with multiple comorbidities is referred to neurology for unresponsive event, generalized weakness and action tremor. The unresponsive event concerns for syncope, no seizure like activity or post ictal state reported. His brain MRI is unremarkable, per my read. Recommend routine EEG to err on the side of caution. His generalized weakness is chronic (years) and likely related to multiple comorbidities. 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 EMG and muscle enzymes are usually normal in steroid induced myopathy, but could be considered in the outpatient setting to look for other causes of chronic weakness. Recommend follow up in person with his neurologist for further workup of his chronic issues. Denies bradykinesia, resting tremor, gait changes. He needs in person exam for PD evaluation. -EEG routine. Contact neurology if abnormal -Syncope workup per primary team -PT/OT -Outpatient neurology follow up with his neurologist in person to consider further weakness workup and PD evaluation. Telehealth Consultation Telehealth Information Telehealth Information: I performed this visit using a real-time telehealth connection between my location and the patients location ([facility]). After connecting through interactive tele-video, patient was identified by name and date of and/or wristband check.Patient (or authorized healthcare sales representative church furniture) was informed that this was a telemedicine visit and it was being conducted confidentially over secure lines. My office door was closed and no one else was present in the room with me.Patient (or authorized healthcare sales representative church furniture) provided consent to proceed with the visit, expressed an understanding of privacy and security of the telemedicine visit, and gave permission to have a hospital sales representative church furniture in the room in order to assist with the visit and to conduct portions of the visit, as needed. I informed the patient (or authorized healthcare sales representative church [employer]) that I reviewed their record and presented the opportunity for them to ask any questions regarding the visit today. The patient agreed to participate. 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 Admitted in November 2023 for UTI, ambulatory dysfunction, discharged on 12/09/23. Presenting on 01/04/24 to the ED due to ongoing ambulatory dysfunction, unresponsive event with reported eyelid weakness. Per patient, he was going to the dentist, at the door of the office, he suddenly did not respond, fell, he does not remember seeing people trying to help him. When he woke up, he was not disoriented but he did not know what was going on. It has happened a couple times before. Denies palpitations, diaphoresis during the episode. No shaking or seizure like activity. Seen by Neurology in the past, he was supposed to follow up but he was not able. He has been falling recently. Denies myalgia. He thinks he has been progressively weak for years. Reports mild cognitive impairment since group home, that is not progressing. He forgets what he ate for lunch. Allergies Allergy/AdvReac Type Severity Reaction Status Date / Time Iodinated Contrast Media Allergy Severe LOVERSOL---CARDIAC Verified 01/04/24 15:[address] CONTRAST clindamycin Allergy Intermediate Rash Verified 01/04/24 15:42 chocolate flavor AdvReac Severe DIARRHEA/ Verified 01/04/24 15:42 Cannot take, interacts w/ medications. cranberry AdvReac Severe Cannot Verified 01/04/24 15:42 take, interacts w/ medications. pembrolizumab [From Keytruda] AdvReac Intermediate myocarditis Verified 01/04/24 15:42 Home Medications Medication Instructions Recorded Confirmed Type donepezil 10 mg tablet 10 mg PO QAM 04/13/22 01/04/24 History ascorbic acid (vitamin C) 1,000 mg 1,000 mg PO QAM 08/27/22 01/04/24 History tablet (Vitamin C) epinephrine 0.3 mg/0.3 mL 0.3 mg IM DIRECTED PRN 11/30/22 01/04/24 History injection, auto-injector anaphylaxis fluticasone fur. 200 mcg-umeclid 1 inh inhalation QPM 12/12/22 01/04/24 History 62.5 mcg-vilant 25 mcg inhalat.powder (Trelegy Ellipta) fluticasone propionate 50 2 spray intranasal DAILY 12/12/22 01/04/24 History mcg/actuation nasal spray,suspension ferrous sulfate 325 mg (65 mg 325 mg PO QAM 04/07/23 01/04/24 History iron) tablet,delayed release acetaminophen 325 mg tablet 650 mg PO Q4H PRN PAIN/FEVER 10/09/23 01/04/24 History (Tylenol) multivitamin with minerals-folic 1 tab PO QAM 10/09/23 01/04/24 History acid 200 mcg chewable tablet (Multivitamin Gummies) omeprazole 20 mg capsule,delayed 20 mg PO QAM 10/09/23 01/04/24 History release sennosides 8.6 mg-docusate sodium 1 tab-cap PO DAILY PRN Constipation 10/09/23 01/04/24 History 50 mg tablet (Senna Plus) albuterol sulfate 90 mcg/actuation 2 puff inhalation Q6 PRN Shortness 11/23/23 01/04/24 History aerosol inhaler Of Breath Or Wheezing cholecalciferol (vitamin D3) 125 125 mcg PO QAM 11/23/23 01/04/24 History mcg (5,000 unit) tablet memantine 10 mg tablet 10 mg PO BIDM 11/23/23 01/04/24 History cyanocobalamin (vitamin B-12) 1,000 mcg PO QAM 01/04/24 01/04/24 History 1,000 mcg tablet (Vitamin B-12) midodrine 2.5 mg tablet 2.5 mg PO TID 01/04/24 01/04/24 History prednisone 10 mg tablet 10 mg PO QAM 01/04/24 01/04/24 History sertraline 25 mg tablet 25 mg PO QPM 01/04/24 01/04/24 History sulfamethoxazole 800 1 tab PO 3XWK 01/04/24 01/04/24 History mg-trimethoprim 160 mg tablet vitamin E 400 unit tablet 45 mg PO QAM 01/04/24 01/04/24 History Patient History Medical History (Updated 01/04/24 @ 22:43 by Bess Crandall PA-C) History of recent blood transfusion Radiation cystitis Kidney stones x1 episode. no surgery needed. [place]'s disease follows with Endocrinology [facility] on hydrocortisone Chronic steroid use Sleep apnea Cpap Cardiac arrest hx r/t IV Contrast Dye "many years ago" Adrenal insufficiency Allergic rhinitis Asthma (10/03/11) well controlled. Benign prostatic hyperplasia Contrast media allergy Hiatal hernia Surgical History S/P cataract extraction History of right cataract extraction History of colonoscopy H/O sinus surgery History of appendectomy S/P TURP (status post transurethral resection of prostate) Status post cystoscopy (11/07/13) Family History Father Prostate cancer Brother Prostate cancer Mother Thyroid cancer Cancer Other No family history of adverse response to anesthesia Social History Smoking Status: Never smoker Tobacco Type: Cigarettes Second Hand Exposure: No; Do You Dip or Chew Tobacco: No; Hx Alcohol Use: Yes Alcohol type: beer Alcohol Intake Frequency: Monthly or Less Hx Substance Use: No Preferred Language: Irish Communication Ability: Effective Visual Impairment: Limited Hearing Ability: Normal Race Car Driver Required: No Beliefs That Will Affect Care: None marital status: Current Living Situation: Spouse Current Living Situation Comment: at home with current occupational status: retired How many Children do You have: 0 Feels Safe at Home: Yes Safety Concerns: Feels Safe At This Time Diet: regular during the past year weight has: decreased > 10 lbs Seatbelt Use: always Do you think of yourself as: straight/heterosexual Gender Identity: Male Assistive Devices: CPAP, Glasses, Walker and Wheelchair Review of Systems generalized weakness, cognitive impairment Physical Exam On video examination respirations are calm, appears well, moves and gestures naturally. Neurologic Exam: Mental Status: Awake and alert. Oriented to person, place, time. Fluent. Naming, repetition, and comprehension to multi-step commands intact. Affect appropriate. Cranial Nerves: III/IV/: Versions intact without nystagmus, no gaze preference VII: Facial expression symmetric VIII: Hearing intact to voice IX/X: Normal speech without dysarthria XI: Shoulder shrug symmetric XII: Tongue midline Motor: Movements are natural bilaterally. There is mild drift throughout. RLE action tremor is noted. Coordination: Finger and hand tapping and finger to nose were without ataxia Gait: Not tested due to risk of falling Results & Data Vital Signs (Past 12 Hours) Vital Signs Temp Pulse Pulse Resp BP BP Pulse Ox 01/05/24 07:35 36.8 C 82 18 176/88 H 95 01/05/24 03:25 36.6 C 78 20 189/101 H 98 01/05/24 02:23 80 01/05/24 00:07 36.6 C 74 20 167/86 H 97 O2 Del Method 01/05/24 07:35 Room Air 01/05/24 03:25 Room Air 01/05/24 02:23 01/05/24 00:07 Room Air Laboratory Results Abnormal lab results 01/04/24 01/05/24 Range/Units 09:59 07:22 WBC 11.93 H (4.8-10.8) K/ul RBC 4.17 L 4.03 L (4.70-6.10) M/uL Hgb 12.9 L 12.6 L (14.0-18.0) g/dl Hct 40.1 L 37.9 L (42.0-52.0) % RDW Std Deviation 55.8 H 52.2 H (36.4-46.3) fL RDW Coeff of Robert 15.7 H 15.0 H (11.5-14.5) % MPV 9.0 L 8.9 L (9.4-12.4) fL Neut # (Auto) 9.61 H (1.40-6.50) K/uL [place] # (Auto) 0.64 H (0.11-0.59) K/uL Potassium 3.4 L (3.5-5.1) mmol/L Glucose 136 H (70-99(Fasting)) mg/dl Calcium 8.5 L (8.6-10.3) mg/dl TIBC 210 L (250-450) mcg/dl Unsaturated IBC 153 L (155-355) mcg/dl AST 9 L (13-39) U/L Total Protein 5.8 L (6.0-8.3) gm/dl Globulin 2.3 L (2.5-4.0) gm/dl Vitamin B12 1047 H (180-914) pg/ml Diagnostic Findings Chest X-Ray 01/04/24 10:28 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 Comparison: Comparison is made to chest radiographs 11/23/2023 FINDINGS: No lines and tubes are seen. Calcified aortic knob is seen. The lungs are clear. No evidence of pleural effusion or pneumothorax. IMPRESSION: No acute chest disease. ACT 112: Negative or not required by law. Electronically signed by: Alonso Fay M.D. 01/04/2024 10:[address] 01/04/24 10:[address] DOSE: 625.8 mGy.cm HISTORY: R eye droop TECHNIQUE: Multiaxial CT images of the head were performed without the use of intravenous contrast. Automated exposure control was utilized for this study. A dose lowering technique was utilized adhering to the principles of ALARA. Comparison: Head CT 11/23/2023. Findings: Mild mucosal thickening and a small fluid level again noted within the left maxillary sinus. Trace fluid levels within the sphenoid sinuses, unchanged. The mastoid air cells are clear. Prior bilateral lens replacement. Otherwise, the orbits are unremarkable. The calvarium and skull base are intact. There is no mass, hematoma, midline shift, acute infarct. White matter hypodensity is nonspecific but suggestive of microvascular ischemic change. The ventricles and sulci demonstrate mild age-related involutional changes. Mild motion artifact. Impression: No significant change compared to the prior study. No acute intracranial abno rmality. ACT 112: Negative or not required by law. Electronically signed by: Des Harrison M.D. 01/04/2024 11:42 AM Brain MRI 01/04/24 12:42 Brain MRI WITHOUT CONTRAST HISTORY: R sided ptosis TECHNIQUE: Multiplanar multisequence MRI of the brain was performed without the use of contrast. COMPARISON STUDY: Head CT 01/03/2024 brain MRI 02/03/2020. FINDINGS: There is no mass, hematoma, midline shift, or acute infarct. The paranasal sinuses are clear. The mastoid air cells are clear. The ventricles and sulci demonstrate mild age-related involutional changes. Scattered foci of T2 hyperintensity seen within the periventricular and subcortical white matter are nonspecific but suggestive of mild microvascular ischemic changes. The major vascular flow voids at the skull base are well-maintained. Prior bilateral lens replacement. Small fluid levels within the sphenoid sinuses and left maxillary sinus, unchanged. IMPRESSION: 1. No acute intracranial abnormality. 2. Scattered foci of T2 hyperintensity seen within the periventricular and subcortical white matter are nonspecific but favor microvascular ischemic change. ACT 112: Negative or not required by law. Electronically signed by: Des Harrison M.D. 01/04/2024 2:[address] 01/04/24 17:[address] DOSE: HISTORY: Dental abscess concern TECHNIQUE: Multiaxial CT images of the maxillofacial region were performed and reformatted in the coronal plane without the use of contrast. A dose lowering technique was utilized adhering to the principles of ALARA. COMPARISON: Maxillofacial CT 09/20/2014. FINDINGS: The visualized cervical spine, skull base, pterygoid plates, nasal bones, lamina papyracea, orbital floors, mandible, and zygomatic arches are intact. No fractures. The orbits are unremarkable. The right mastoid air cells are clear. There are few opacified left mastoid air cells. Mild mucosal thickening and small fluid levels within the sphenoid sinuses and left maxillary sinus. Dental artifact obscures the oral cavity. There are few scattered dental caries noted. No periapical lucencies identified. No definite loculated fluid collections to suggest an abscess on this noncontrast study. IMPRESSION: Dental artifact obscures the oral cavity. There are few scattered dental caries noted. No periapical lucencies identified. No definite loculated fluid collections to suggest an abscess on this noncontrast study. ACT 112: Negative or not required by law. Electronically signed by: Des Harrison M.D. 01/05/2024 8:55 AM
[2024-01-05] MEDS: predniSONE 10 MG TABLET PO SCH (09:21)
[2024-01-05] MEDS: FERROUS SULFATE 325 MG TAB PO SCH (09:21)
[2024-01-05] MEDS: SULFAMETHOXAZOLE/TRIMETHOPRIM DS 800/160MG TAB PO SCH (09:21)
[2024-01-05] MEDS: ASPIRIN 81 MG ECTAB PO SCH (09:21)
[2024-01-05] MEDS: DONEPEZIL HCL 10 MG TAB PO SCH (09:21)
[2024-01-05] MEDS: CYANOCOBALAMIN (B-12) 500 MCG TABLET PO SCH (09:22)
[2024-01-05] MEDS: PANTOprazole 40 MG TAB PO SCH (09:22)
[2024-01-05] MEDS: FLUTICASONE PROPIONATE NA SPR 16 GM BTL SCH (09:22)
[2024-01-05] MEDS: ATORVASTATIN 40 MG TAB PO SCH (09:23)
[2024-01-05] MEDS: POTASSIUM CHLORIDE CRTAB 20 MEQ TABCR PO STA (09:57)
[2024-01-05] MEDS: NSS + 20MEQ KCL 20 MEQ/1,000 ML BAG IV SCH (16:26)
--- NOTE | 2024-01-05 18:24 | Hospitalist Progress Note ---
Date of Service January 05, 2024 Assessment & Plan (1) Episode of unresponsiveness: Plan: Likely secondary to postural hypotension Head CT performed in ED showed no acute intracranial abnormality. Of note, patient has a SEVERE allergy to contrast dye. Brain MRI performed in the ED revealed no acute intracranial abnormality. It was noted that he had scattered foci of T2 hyperintensity seen within the periventricular and subcortical white matter, which are nonspecific but according to documentation favor microvascular ischemic change. Appreciate neurology input and recommendation Will get an EEG Outpatient neurology appointment to get EMG as an outpatient (2) History of orthostatic hypotension: Plan: Significant history of orthostatic hypotension with recurrent admission to the hospital Unresponsive episode likely secondary to orthostatic hypotension Autonomic dysfunction and likely complicated by medications like Aricept and Namenda likely the cause of ongoing hypotension Dehydration may play a role in postural drop in blood pressure Will check orthostatic vitals every shift He has been on midodrine 2.5 mg 3 times daily Will discontinue Namenda and likely take of Aricept from the medications regimen Will give intravenous fluid and was advised to drink more fluid Monitor while in the hospital (3) Ambulatory dysfunction: Plan: Branden High is 78y/o M with PMHx of adrenal insufficiency on chronic steroids, bronchial asthma/COPD, ANDRZEJ, history of DVT/PE s/p IVC filter placement (no longer anticoagulated due to bleeding issues), bladder cancer s/p surgery [ off Keytruda secondary to development of myocarditis], prostate cancer s/p radiation therapy, valvular heart disease (moderate , mild AR)/cerebrovascular disease, HTN, orthostatic hypotension, chronic anemia, mild cognitive impairment/dementia, ambulatory dysfunction, urinary incontinence, chronic venous insufficiency, CKD stage III and other problems listed below who presented to the ED via EMS for further medical evaluation following an episode of unresponsiveness w/ associated right eye drooping which has since resolved. Of note, patient was most recently hospitalized from 11/23/23 to 12/09/23 following presentation to the ED for evaluation of generalized weakness and subsequent fall. Hospital course was significant for the treatment of an acute UTI w/ 7-day course of IV ampicillin. Urine culture at that time grew Enterococcus faecalis. Patient was also found to have an VIOLETA (creatinine of 1.4) on admission, which resolved throughout the hospital stay. Head CT at that time showed no acute finding. Patient did have to receive midodrine during admission for orthostatic hypotension and was D/C on midodrine 10 mg p.o. 3 times daily. Patient was also recorded to have a stage II sacral pressure ulcer prior to that admission [wound care was on board during his hospital stay] and subsequently Devlin cath had to be placed d/t baseline urinary incontinence during the hospital course. He was d/c to [facility] and returned home on December 23. 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 may be d/t chronic steroid therapy). UA not ordered in the ED. -Will order UA to r/o any possibility of UTI. Patient is currently on 3x/weekly dosing of Bactrim for PJP prophylaxis. (5) Acute oral pain: Plan: Patient was given 2 doses of Tylenol [totaling 1300 mg] in the ED w/ relief. -CT face ordered to assess for any determinate cause of left-sided jaw pain (? may be oral abscess contributing to his pain and elevated WBC count). -Has been on Unasyn intravenously -Awaiting oromaxillary facial surgery evaluation (6) Adrenal insufficiency: Plan: Continue current dose of prednisone 10 mg every morning (7) Immunosuppression due to chronic steroid use: Plan: Patient currently on chronic prednisone therapy [10mg po QAM --> appears to be his baseline dosage according to prior documentation]. Per previous d/c summary, further tapering was deferred to outpatient endocrine f/u [per previous oncology recommendation to do so during last hospital stay]. Patient did NOT f/u with endocrinology prior to his arrival to the ED today. However, an appointment w/ Dr. Iglesias [[facility]] is scheduled for 01/13/24. -Continue prednisone therapy while hospitalized, may consider endocrinology consult for further guidance. -Continue Bactrim (3x/week dosing) for PJP prophylaxis while hospitalized. (8) History of hematuria: (9) Urinary incontinence: Plan: Patient did meet w/ Dr. Villareal [[facility]] on 12/14/23 for evaluation of gross hematuria following Devlin catheter exchange at [facility]. It was determined that the hematuria was more than likely the result of traumatic Devlin placement and friable bladder mucosa. Patient is scheduled to undergo cystoscopy with Dr. Villareal at the end of next month. -Devlin catheter still in place, monitor I&O's (10) Sacral pressure sore: Plan: Non-blanching sacral erythema present; however, no open wound was seen on examination. -Wound care consult placed, appreciate their input/recommendations. (11) History of DVT (deep vein thrombosis): (12) History of pulmonary embolism: (13) S/P IVC filter: Plan: Not currently on anticoagulation therapy d/t hx of radiation-induced cystitis per chart review. -Patient placed on aspirin 81mg daily and atorvastatin 40mg daily per Dr. Marti's recommendation given patient's hx. 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 Had received multiple rounds of radiation therapy for prostate cancer many years ago. -Patient follows with [facility] [Dr. Xavi Gramajo] in the outpatient setting. He is scheduled to return to the heme/onc clinic in March. (17) Chronic anemia: Plan: Patient did meet w/ Dr. Xavi Gramajo [[facility]] on 12/15/23 for f/u after his most recent hospitalization. Vit B12, folic acid, ferritin and iron panel were conducted at that time. All of those labs came back w/in normal ranges, therefore he did not require intravenous iron therapy. As per above, he is scheduled to return to the heme/onc clinic in March. -Will repeat vit B12, folate, ferritin and iron panel in the AM. -Continue [employer] ferrous sulfate, vit B12 (18) Stage 3 chronic kidney disease: Plan: Creatinine of 1.19 in the ED, appears to be at baseline. -Monitor for any acute changes in renal function throughout hospital stay. (19) Asthma: (20) COPD (chronic obstructive pulmonary disease): Plan: -Continue Trelegy, PRN albuterol inhaler -No evidence of acute exacerbation (21) Mild cognitive impairment: (22) Tremor observed on examination: Plan: Per Dr. Marti, physical examination raised concern for potential Parkinson's disease (?). Dr. Marti mentioned that the patient displayed classic cogwheel rigidity during his examination. -As per above, routine neurology consult has been placed. Will appreciate their input regarding these examination findings. -Monitor for any signs of delirium during hospital stay. -Continue memantine, donepezil and sertraline. (23) GERD (gastroesophageal reflux disease): Plan: -Continue [employer] omeprazole DVT Prophylaxis: SCDs Code Status: Full Code PCP: Deondre Hill MD Dispo: Admit to Med/Surg w/ Telemetry Patient seen in collaboration with Dr. Marti. Please see his addendum for further recommendations regarding medical management of this patient. Admission and Anticipated Discharge Date Admission Date: January 04, 2024 Subjective 01/05/2024 The patient was seen and examined in medical telemetry unit He has been very anxious and complains to have dizziness with postural hypotension which has been going on for a long time Denies any chest pain, palpitation or shortness of breath Denies any abdominal pain nausea or vomiting Remains hemodynamically stable in bed Review of Systems Review of Systems: All systems reviewed and are unremarkable except as noted below Physical Exam Physical Exam: Lying in bed comfortably Constitutional: + ill appearing and average body habitus Eyes: PERRL, conjunctivae normal, anicteric sclerae ENMT: external ear and nose normal, oropharynx normal Neck: trachea midline, no thyromegaly Respiratory: no respiratory distress Auscultation: lungs clear to auscultation bilaterally Cardiovascular: Rate/Rhythm: regular rate and regular rhythm; not tachycardic Heart Sounds: normal S1 and normal S2; no murmur Extremities: no edema Gastrointestinal (Abdomen): Inspection/Auscultation: normal bowel sounds; abdomen not distended Percussion/Palpation: abdomen soft; abdomen nontender Musculoskeletal: No acute arthritis involving any of the joints Neurologic: normal touch/pain/proprioception and moves all extremities; no focal motor deficits Psychiatric: Very anxious Lymphatic: no cervical or axillary lymphadenopathy Results & Data Results & Data Vital Signs (Past 12 Hours) Vital Signs Temp Pulse Pulse Resp BP BP Pulse Ox 01/05/24 15:58 86 01/05/24 15:57 36.5 C 87 18 143/85 H 95 01/05/24 11:27 36.9 C 77 18 155/87 H 97 01/05/24 10:22 01/05/24 08:00 71 01/05/24 07:35 36.8 C 82 18 176/88 H 95 O2 Del Method 01/05/24 15:58 01/05/24 15:57 Room Air 01/05/24 11:27 Room Air 01/05/24 10:22 Room Air 01/05/24 08:00 01/05/24 07:35 Room Air Laboratory Results Short CBC 01/05/24 Range/Units 07:22 WBC 8.33 (4.8-10.8) K/ul Hgb 12.6 L (14.0-18.0) g/dl Hct 37.9 L (42.0-52.0) % Plt Count 219 (130-400) K/uL BMP 01/05/24 07:22 Sodium 140 Potassium 3.4 L Chloride 106 Carbon Dioxide 27 BUN 12 Creatinine 0.94 Glucose 87 Calcium 8.5 L Medications Administered Current Inpatient Medications Acetaminophen (Acetaminophen 325 Mg Tab) 650 mg PO Q4H PRN PRN Reason: pain/fever Stop: 02/03/24 17:29 Last Admin: 01/05/24 12:03 Dose: 650 mg Al Hydrox/Mg Hydrox/Simethicone (Aluminum/Magnesium Susp 30 Ml Udc) 30 ml PO Q6H PRN PRN Reason: Dyspepsia Stop: 02/03/24 17:29 Albuterol (Albuterol Hfa 8 Gm Inhaler) 2 puffs INH Q6 PRN PRN Reason: Shortness Of Breath Or Wheezing Stop: 02/03/24 17:29 Amlodipine Besylate (Amlodipine Besylate 5 Mg Tab) 2.5 mg PO QAM [facility] Stop: 02/04/24 03:14 Last Admin: 01/05/24 03:52 Dose: 2.5 mg Amoxicillin/Clavulanate Potassium (Amoxicillin/Clavulanate 875 Mg Tab) 1 tab PO BIDM [facility]; Protocol Stop: 01/15/24 19:59 Aspirin (Aspirin 81 Mg Ectab) 81 mg PO DAILY [facility] Stop: 02/04/24 08:59 Last Admin: 01/05/24 09:21 Dose: 81 mg Atorvastatin Calcium (Atorvastatin 40 Mg Tab) 40 mg PO QAM [facility] Stop: 02/04/24 08:59 Last Admin: 01/05/24 09:23 Dose: 40 mg Benzocaine (Benzocaine 20% (Orajel) 11.9 Gm Tube) 1 appln MT QID PRN PRN Reason: toothache Stop: 02/03/24 22:27 Last Admin: 01/04/24 23:10 Dose: 1 appln Cyanocobalamin (Cyanocobalamin (B-12) 500 Mcg Tablet) 1,000 mcg PO QAM [facility] Stop: 02/04/24 08:59 Last Admin: 01/05/24 09:22 Dose: 1,000 mcg Donepezil HCl (Donepezil Hcl 10 Mg Tab) 10 mg PO QAM [facility] Stop: 02/04/24 08:59 Last Admin: 01/05/24 09:21 Dose: 10 mg Ferrous Sulfate (Ferrous Sulfate 325 Mg Tab) 325 mg PO QAM [facility] Stop: 02/04/24 08:59 Last Admin: 01/05/24 09:21 Dose: 325 mg Fluticasone Furoate (Fluticasone Furoate 200mcg 14 Puffs/Inhaler) 1 puffs INH PM [facility] Stop: 02/03/24 20:59 Last Admin: 01/04/24 20:10 Dose: 1 puffs Fluticasone Propionate (Fluticasone Propionate Na Spr 16 Gm Btl) 2 sprays NA DAILY [facility] Stop: 02/04/24 08:59 Last Admin: 01/05/24 09:22 Dose: 2 sprays Potassium Chloride/Sodium Chloride (Normal Saline W/20 Meq Kcl) 20 meq in 1,000 mls @ 100 mls/hr IV .Q10H [facility]; Protocol Stop: 01/06/24 20:29 Last Admin: 01/05/24 16:26 Dose: 100 mls/hr Magnesium Hydroxide (Magnesium Hydroxide Susp 30 Ml Udc) 30 ml PO Q6H PRN PRN Reason: Constipation Stop: 02/03/24 17:29 Memantine (Memantine Hcl 10 Mg Tab) 10 mg PO BIDM [facility] Stop: 02/03/24 17:29 Last Admin: 01/05/24 09:21 Dose: 10 mg Midodrine (Midodrine Hcl 2.5 Mg Tab) 2.5 mg PO TIDM [facility] Stop: 02/03/24 17:44 Last Admin: 01/05/24 16:26 Dose: 2.5 mg Pantoprazole Sodium (Pantoprazole 40 Mg Tab) 40 mg PO QAM [facility] Stop: 02/04/24 08:59 Last Admin: 01/05/24 09:22 Dose: 40 mg Polyethylene Glycol (Polyethylene (Miralax) 17 Gm Pack) 17 gm PO DAILY PRN PRN Reason: Constipation Stop: 02/03/24 17:29 Prednisone (Prednisone 10 Mg Tablet) 10 mg PO QAM [facility] Stop: 02/04/24 08:59 Last Admin: 01/05/24 09:21 Dose: 10 mg Senna/Docusate Sodium (Docusate Sodium/Senna 50/8.6mg Tab) 1 tab PO DAILY PRN PRN Reason: Constipation Stop: 02/03/24 17:29 Sertraline HCl (Sertraline Hcl 50 Mg Tablet) 25 mg PO QPM [facility] Stop: 02/03/24 20:59 Last Admin: 01/04/24 20:09 Dose: 25 mg Trimethoprim/Sulfamethoxazole (Sulfamethoxazole/Trimethoprim Ds 800/160mg Tab) 1 tab PO MoWeFr [facility] Stop: 02/04/24 08:59 Last Admin: 01/05/24 09:21 Dose: 1 tab Umeclidinium/Vilanterol (Umeclidinium/Vilanterol 62.5/25mcg 7 Puffs/Inhaler) 1 puffs INH PM [facility] Stop: 02/03/24 20:59 Last Admin: 01/04/24 20:09 Dose: 1 puffs (4) Elevated white blood cell count Leukocytosis type: unspecified Qualified Code(s): D72.829 - Elevated white blood cell count, unspecified (9) Urinary incontinence Urinary Incontinence type: unspecified incontinence Qualified Code(s): R32 - Unspecified urinary incontinence (10) Sacral pressure sore Pressure injury stage: stage 1 Qualified Code(s): L89.151 - Pressure ulcer of sacral region, stage 1 (18) Stage 3 chronic kidney disease Chronic kidney disease stage 3 subtype: unspecified whether 3a or 3b Qualified Code(s): N18.30 - Chronic kidney disease, stage 3 unspecified (19) Asthma Asthma severity: unspecified severity Asthma persistence: unspecified Asthma complication type: unspecified Qualified Code(s): J45.909 - Unspecified asthma, uncomplicated (20) COPD (chronic obstructive pulmonary disease) COPD type: unspecified COPD Qualified Code(s): J44.9 - Chronic obstructive pulmonary disease, unspecified (23) GERD (gastroesophageal reflux disease) Esophagitis presence: esophagitis presence not specified Qualified Code(s): K21.9 - Gastro-esophageal reflux disease without esophagitis
[2024-01-05] MEDS: AMOXICILLIN/CLAVULANATE 875 MG TAB PO SCH (20:34)
[2024-01-06] MEDS: LABETALOL HCL IV 5 MG/ML 20ML IV STA (03:12)
[2024-01-06 08:51] LABS: Basophils # (auto) 0.03 K/uL (0.00-0.20); Basophils % (auto) 0.3 %; Eosinophils # (auto) 0.03 K/uL (0.00-0.50); Eosinophils % (auto) 0.3 %; Hematocrit (blood only) 40.7 % (42.0-52.0); Hemoglobin 13.6 g/dl (14.0-18.0); Immature Granulocytes # (auto) 0.04 K/uL (0.01-0.20); Immature Granulocytes % (auto) 0.5 %; Lymphocytes # (auto) 2.03 K/uL (1.20-3.40); Lymphocytes % (auto) 22.9 %; Mean Corpuscular Hemoglobin 31.4 pg (25.0-34.0); Mean Corpuscular Hgb Conc 33.4 g/dL (32.0-36.0); Mean Platelet Volume 8.7 fL (9.4-12.4); Monocytes # (auto) 0.54 K/uL (0.11-0.59); Monocytes % (auto) 6.1 %; Neutrophils # (auto) 6.18 K/uL (1.40-6.50); Neutrophils % (auto) 69.9 %; Platelet Count 212 K/uL (130-400); RDW Standard Deviation 51.9 fL (36.4-46.3); Red Blood Count 4.33 M/uL (4.70-6.10); White Blood Count 8.85 K/ul (4.8-10.8)
[2024-01-06 09:08] LABS: BUN Creatinine Ratio 10.5 (10-20); Calcium 8.9 mg/dl (8.6-10.3); Creatinine Clr Calc Pharmacy 75.7 ml/min; Est GFR (African American) 89.1 ml/min; Est GFR (Non-African American) 76.9 ml/min
--- NOTE | 2024-01-06 11:45 | Electroencephalogram ---
EEG Procedure Note Date of Service January 06, 2024 Start / End Times Start Time: 07:10 End Time: 07:30 Referring Physician Yelena Villanueva History A 78-year-old male with unresponsive episode. EEG performed for evaluation of epileptiform activity. Home Medication List Medication Instructions Recorded Confirmed Type donepezil 10 mg tablet 10 mg PO QAM 04/13/22 01/04/24 History ascorbic acid (vitamin C) 1,000 mg 1,000 mg PO QAM 08/27/22 01/04/24 History tablet (Vitamin C) epinephrine 0.3 mg/0.3 mL 0.3 mg IM DIRECTED PRN 11/30/22 01/04/24 History injection, auto-injector anaphylaxis fluticasone fur. 200 mcg-umeclid 1 inh inhalation QPM 12/12/22 01/04/24 History 62.5 mcg-vilant 25 mcg inhalat.powder (Trelegy Ellipta) fluticasone propionate 50 2 spray intranasal DAILY 12/12/22 01/04/24 History mcg/actuation nasal spray,suspension ferrous sulfate 325 mg (65 mg 325 mg PO QAM 04/07/23 01/04/24 History iron) tablet,delayed release acetaminophen 325 mg tablet 650 mg PO Q4H PRN PAIN/FEVER 10/09/23 01/04/24 History (Tylenol) multivitamin with minerals-folic 1 tab PO QAM 10/09/23 01/04/24 History acid 200 mcg chewable tablet (Multivitamin Gummies) omeprazole 20 mg capsule,delayed 20 mg PO QAM 10/09/23 01/04/24 History release sennosides 8.6 mg-docusate sodium 1 tab-cap PO DAILY PRN Constipation 10/09/23 01/04/24 History 50 mg tablet (Senna Plus) albuterol sulfate 90 mcg/actuation 2 puff inhalation Q6 PRN Shortness 11/23/23 01/04/24 History aerosol inhaler Of Breath Or Wheezing cholecalciferol (vitamin D3) 125 125 mcg PO QAM 11/23/23 01/04/24 History mcg (5,000 unit) tablet memantine 10 mg tablet 10 mg PO BIDM 11/23/23 01/04/24 History cyanocobalamin (vitamin B-12) 1,000 mcg PO QAM 01/04/24 01/04/24 History 1,000 mcg tablet (Vitamin B-12) midodrine 2.5 mg tablet 2.5 mg PO TID 01/04/24 01/04/24 History prednisone 10 mg tablet 10 mg PO QAM 01/04/24 01/04/24 History sertraline 25 mg tablet 25 mg PO QPM 01/04/24 01/04/24 History sulfamethoxazole 800 1 tab PO 3XWK 01/04/24 01/04/24 History mg-trimethoprim 160 mg tablet vitamin E 400 unit tablet 45 mg PO QAM 01/04/24 01/04/24 History Inpatient Medication List Acetaminophen (Acetaminophen 325 Mg Tab) 650 mg PO Q4H PRN PRN Reason: pain/fever Stop: 02/03/24 17:29 Last Admin: 01/06/24 08:05 Dose: 650 mg Documented By: Admin: 01/05/24 20:35 Dose: 650 mg Documented By: Admin: 01/05/24 12:03 Dose: 650 mg Documented By: Admin: 01/04/24 21:10 Dose: 650 mg Documented By: MONA Amlodipine Besylate (Amlodipine Besylate 5 Mg Tab) 2.5 mg PO [facility] Stop: 02/04/24 03:14 Last Admin: 01/06/24 08:07 Dose: 2.5 mg Documented By: Admin: 01/05/24 03:52 Dose: 2.5 mg Documented By: MONA Amoxicillin/Clavulanate Potassium (Amoxicillin/Clavulanate 875 Mg Tab) 1 tab PO BIDM [facility]; Protocol Stop: 01/15/24 19:59 Last Admin: 01/06/24 08:06 Dose: 1 tab Documented By: Admin: 01/05/24 20:34 Dose: 1 tab Documented By: MICKEY Aspirin (Aspirin 81 Mg Ectab) 81 mg PO DAILY [facility] Stop: 02/04/24 08:59 Last Admin: 01/06/24 08:08 Dose: 81 mg Documented By: Admin: 01/05/24 09:21 Dose: 81 mg Documented By: MINOO Atorvastatin Calcium (Atorvastatin 40 Mg Tab) 40 mg PO [facility] Stop: 02/04/24 08:59 Last Admin: 01/06/24 08:07 Dose: 40 mg Documented By: Admin: 01/05/24 09:23 Dose: 40 mg Documented By: MINOO Benzocaine (Benzocaine 20% (Orajel) 11.9 Gm Tube) 1 appln MT QID PRN PRN Reason: toothache Stop: 02/03/24 22:27 Last Admin: 01/06/24 08:52 Dose: 1 appln Documented By: Admin: 01/04/24 23:10 Dose: 1 appln Documented By: NRR Cyanocobalamin (Cyanocobalamin (B-12) 500 Mcg Tablet) 1,000 mcg PO QAM [facility] Stop: 02/04/24 08:59 Last Admin: 01/06/24 08:07 Dose: 1,000 mcg Documented By: Admin: 01/05/24 09:22 Dose: 1,000 mcg Documented By: MINOO Donepezil HCl (Donepezil Hcl 10 Mg Tab) 10 mg PO QAM [facility] Stop: 02/04/24 08:59 Last Admin: 01/06/24 08:07 Dose: 10 mg Documented By: Admin: 01/05/24 09:21 Dose: 10 mg Documented By: MINOO Ferrous Sulfate (Ferrous Sulfate 325 Mg Tab) 325 mg PO QAM [facility] Stop: 02/04/24 08:59 Last Admin: 01/06/24 08:07 Dose: 325 mg Documented By: Admin: 01/05/24 09:21 Dose: 325 mg Documented By: MINOO Fluticasone Furoate (Fluticasone Furoate 200mcg 14 Puffs/Inhaler) 1 puffs INH PM [facility] Stop: 02/03/24 20:59 Last Admin: 01/05/24 20:33 Dose: 1 puffs Documented By: Admin: 01/04/24 20:10 Dose: 1 puffs Documented By: BRANDONR Fluticasone Propionate (Fluticasone Propionate Na Spr 16 Gm Btl) 2 sprays NA DAILY [facility] Stop: 02/04/24 08:59 Last Admin: 01/06/24 08:08 Dose: 2 sprays Documented By: Admin: 01/05/24 09:22 Dose: 2 sprays Documented By: MINOO Potassium Chloride/Sodium Chloride (Normal Saline W/20 Meq Kcl) 20 meq in 1,000 mls @ 100 mls/hr IV .Q10H [facility]; Protocol Stop: 01/06/24 20:29 Last Admin: 01/06/24 08:08 Dose: 100 mls/hr Documented By: Infusion: 01/06/24 08:08 Dose: Infused Documented By: Admin: 01/06/24 02:04 Dose: 100 mls/hr Documented By: Infusion: 01/06/24 02:04 Dose: Infused Documented By: Admin: 01/05/24 16:26 Dose: 100 mls/hr Documented By: MINOO Memantine (Memantine Hcl 10 Mg Tab) 10 mg PO BIDM [facility] Stop: 02/03/24 17:29 Last Admin: 01/05/24 09:21 Dose: 10 mg Documented By: Admin: 01/04/24 18:54 Dose: 10 mg Documented By: ADRIAN Midodrine (Midodrine Hcl 2.5 Mg Tab) 2.5 mg PO TIDM [facility] Stop: 02/03/24 17:44 Last Admin: 01/06/24 08:06 Dose: 2.5 mg Documented By: Admin: 01/05/24 16:26 Dose: 2.5 mg Documented By: Admin: 01/05/24 12:03 Dose: 2.5 mg Documented By: Admin: 01/05/24 09:21 Dose: 2.5 mg Documented By: Admin: 01/04/24 18:54 Dose: 2.5 mg Documented By: ADRIAN Pantoprazole Sodium (Pantoprazole 40 Mg Tab) [facility] [place] [facility] [place]: 02/04/24 08:59 Last Admin: 01/06/24 08:07 Dose: 40 mg Documented By: Admin: 01/05/24 09:22 Dose: 40 mg Documented By: MINOO Prednisone (Prednisone 10 Mg Tablet) [facility] [place] [facility] [place]: 02/04/24 08:59 Last Admin: 01/06/24 08:08 Dose: 10 mg Documented By: Admin: 01/05/24 09:21 Dose: 10 mg Documented By: MINOO Sertraline HCl (Sertraline Hcl 50 Mg Tablet) 25 mg PO QPM [facility] Stop: 02/03/24 20:59 Last Admin: 01/05/24 20:34 Dose: 25 mg Documented By: Admin: 01/04/24 20:09 Dose: 25 mg Documented By: BRANDONR Trimethoprim/Sulfamethoxazole (Sulfamethoxazole/Trimethoprim Ds 800/160mg Tab) 1 tab PO MoWeFr [facility] Stop: 02/04/24 08:59 Last Admin: 01/05/24 09:21 Dose: 1 tab Documented By: MINOO Umeclidinium/Vilanterol (Umeclidinium/Vilanterol 62.5/25mcg 7 Puffs/Inhaler) 1 puffs INH PM [facility] Stop: 02/03/24 20:59 Last Admin: 01/05/24 20:33 Dose: 1 puffs Documented By: Admin: 01/04/24 20:09 Dose: 1 puffs Documented By: MONA Discontinued Medications Acetaminophen (Acetaminophen 325 Mg Tab) 650 mg PO NOW STA Stop: 01/04/24 15:06 Last Admin: 01/04/24 15:26 Dose: 650 mg Documented By: DANIAL Acetaminophen (Acetaminophen 325 Mg Tab) 650 mg PO NOW STA Stop: 01/05/24 03:10 Last Admin: 01/05/24 03:53 Dose: 650 mg Documented By: NRR Sodium Chloride (Nss) 500 mls @ 999 mls/hr IV .Q31M [facility] Stop: 01/04/24 11:00 Last Infusion: 01/04/24 11:58 Dose: Infused Documented By: Admin: 01/04/24 10:35 Dose: 999 mls/hr Documented By: MARCIA Sodium Chloride (Nss) 1,000 mls @ 50 mls/hr IV .Q20H [facility] Stop: 01/05/24 03:49 Last Infusion: 01/05/24 03:55 Dose: Infused Documented By: Admin: 01/04/24 17:47 Dose: 100 mls/hr Documented By: ADRIAN Ampicillin Sodium/Sulbactam Sodium 3,000 mg/ Sodium Chloride 100 mls @ 200 mls/hr IV NOW STA Stop: 01/05/24 03:53 Last Infusion: 01/05/24 04:22 Dose: Infused Documented By: Admin: 01/05/24 03:49 Dose: 200 mls/hr Documented By: BRANDONR Labetalol HCl (Labetalol Hcl Iv 5 Mg/Ml 20ml) 5 mg IV NOW STA Stop: 01/06/24 03:02 Last Admin: 01/06/24 03:12 Dose: 5 mg Documented By: MICKEY Co-signed By: BECKI Potassium Chloride (Potassium Chloride Crtab 20 Meq Tabcr) 40 meq PO NOW STA Stop: 01/05/24 09:25 Last Admin: 01/05/24 09:57 Dose: 40 meq Documented By: MINOO Description This is a 21 electrode EEG with a single channel dedicated to limited EKG. The electrodes were placed in accordance with the International 10-20 system. Report: At the onset of the EEG the patient appears drowsy. The background is symmetric and continuous. There is a loss of the normal anterior to posterior gradient. The background predominantly consists of 6-7 hertz theta activity with some intermixed delta activity. No stage 2 sleep transients are seen. Photic stimulation does not induce any additional abnormalities. Interpretation Impression: This is an abnormal awake and drowsy routine EEG due to [id number] generalized background slowing suggestive of a nonspecific encephalopathy. No epileptiform activity is seen.
--- NOTE | 2024-01-06 13:28 | Oral/Maxillofacial Consult ---
Date of Consultation January 06, 2024 Assessment & Plan (1) Fracture of multiple teeth: (2) Dental root caries: History of Present Illness Reason for Consultation: dental pain left side Attending Physician: Estefany Devlin MD History of Present Illness Oral Maxillofacial Surgery Exam Present Complaint: I have pain ranging in intensity from a 2 to as high as a 7 Tylenol will help associated with my left teeth Symptoms have been ongoing for a long while. Oral Exam: Finding-fractured # 12 and 21, no tender gingival tissue, no swelling Imaging: I reviewed the CT fractured 12,21 and root caries # 18 Soft tissue: floor of the mouth, tongue, hard/soft palate, posterior pharyngeal area all with in normal limits, no pathology or abnormal findings noted. No lesions noted that require follow up or Bx. Oral Care: Overall oral care is poor Occlusion: Class I TMJ exam: No pop, clicking, pain, good ROM, No history of TMJ injury or dysfunction Periodontal exam: Gingivitises, poor oral care, plaque, gingival tissue with evidence of periodontal pathology. Head/Neck exam: Neck is supple, FROM, Able to extend and flex neck w/o difficulty, no masses, no abnormalities, no airway issues, no evidence of sleep apnea. Treatment Plan: Patient will need a comprehensive dental exam to develop a treatment plan. The present dental symptoms have been going on for a while--no changes noted on and off pain, never any swelling He will need to have a dental cleaning and improve his oral care. Given his current medical issues these need to be addressed first. Once discharged he is planning on seeing his dentist for an evaluation. I feel # 12,21 and 18 will need extraction. I reviewed the treatment plan and consent with the patient he is in agreement--and is planning on see his dentist upon discharge Understanding was expressed. The following teeth are decayed and fractured and removal is indicated in the future 12,18,21 Risks discussed: Bleeding,Pain,swelling,infection, dry socket, delayed healing, nerve injury to face,lips,tongue,chin area which could be permanent (rare). TMJ, jaw stiffness, change in bite (rare), ear pain (referred). Sinus problems like fistula or infection. Need to leave a small root fragment in place to avoid injury to nerve or sinus. Relationship of wisdom teeth to nerve/sinus and risk of jaw fracture. Follow up with dentist is most important-must establish a dental treatment plan No oral surgery treatment indicated at this time Allergies Allergy/AdvReac Type Severity Reaction Status Date / Time Iodinated Contrast Media Allergy Severe LOVERSOL---CARDIAC Verified 01/04/24 15:[address] CONTRAST clindamycin Allergy Intermediate Rash Verified 01/04/24 15:42 chocolate flavor AdvReac Severe DIARRHEA/ Verified 01/04/24 15:42 Cannot take, interacts w/ medications. cranberry AdvReac Severe Cannot Verified 01/04/24 15:42 take, interacts w/ medications. pembrolizumab [From [employer]] AdvReac Intermediate myocarditis Verified 01/04/24 15:42 Home Medications Medication Instructions Recorded Confirmed Type donepezil 10 mg tablet 10 mg PO QAM 04/13/22 01/04/24 History ascorbic acid (vitamin C) 1,000 mg 1,000 mg PO QAM 08/27/22 01/04/24 History tablet (Vitamin C) epinephrine 0.3 mg/0.3 mL 0.3 mg IM DIRECTED PRN 11/30/22 01/04/24 History injection, auto-injector anaphylaxis fluticasone fur. 200 mcg-umeclid 1 inh inhalation QPM 12/12/22 01/04/24 History 62.5 mcg-vilant 25 mcg inhalat.powder (Trelegy Ellipta) fluticasone propionate 50 2 spray intranasal DAILY 12/12/22 01/04/24 History mcg/actuation nasal spray,suspension ferrous sulfate 325 mg (65 mg 325 mg PO QAM 04/07/23 01/04/24 History iron) tablet,delayed release acetaminophen 325 mg tablet 650 mg PO Q4H PRN PAIN/FEVER 10/09/23 01/04/24 H istory (Tylenol) multivitamin with minerals-folic 1 tab PO QAM 10/09/23 01/04/24 History acid 200 mcg chewable tablet (Multivitamin Gummies) omeprazole 20 mg capsule,delayed 20 mg PO QAM 10/09/23 01/04/24 History release sennosides 8.6 mg-docusate sodium 1 tab-cap PO DAILY PRN Constipation 10/09/23 01/04/24 History 50 mg tablet (Senna Plus) albuterol sulfate 90 mcg/actuation 2 puff inhalation Q6 PRN Shortness 04/09/24 05/21/24 History aerosol inhaler Of Breath Or Wheezing cholecalciferol (vitamin D3) 125 125 mcg PO QAM 11/23/23 01/04/24 History mcg (5,000 unit) tablet memantine 10 mg tablet 10 mg PO BIDM 11/23/23 01/04/24 History cyanocobalamin (vitamin B-12) 1,000 mcg PO QAM 01/04/24 01/04/24 History 1,000 mcg tablet (Vitamin B-12) midodrine 2.5 mg tablet 2.5 mg PO TID 01/04/24 01/04/24 History prednisone 10 mg tablet 10 mg PO QAM 01/04/24 01/04/24 History sertraline 25 mg tablet 25 mg PO QPM 01/04/24 01/04/24 History sulfamethoxazole 800 1 tab PO 3XWK 01/04/24 01/04/24 History mg-trimethoprim 160 mg tablet vitamin E 400 unit tablet 45 mg PO QAM 01/04/24 01/04/24 History Patient History Medical History (Updated 01/06/24 @ 13:28 by Apolinar Morales DMD) History of recent blood transfusion Radiation cystitis Kidney stones x1 episode. no surgery needed. 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 Benign prostatic hyperplasia Contrast media allergy Hiatal hernia Surgical History S/P cataract extraction History of right cataract extraction History of colonoscopy H/O sinus surgery History of appendectomy S/P TURP (status post transurethral resection of prostate) Status post cystoscopy (11/07/13) Family History Father Prostate cancer Brother Prostate cancer Mother Thyroid cancer Cancer Other No family history of adverse response to anesthesia Social History Smoking Status: Never smoker Tobacco Type: Cigarettes Second Hand Exposure: No; Do You Dip or Chew Tobacco: No; Hx Alcohol Use: Yes Alcohol type: beer Alcohol Intake Frequency: Monthly or Less Hx Substance Use: No Preferred Language: [place]se Communication Ability: Effective Visual Impairment: Limited Hearing Ability: Normal Gas Mask Inspector Required: No Beliefs That Will Affect Care: None marital status: Current Living Situation: Spouse Current Living Situation Comment: at home with current occupational status: retired How many Children do You have: 0 Feels Safe at Home: Yes Safety Concerns: Feels Safe At This Time Diet: regular during the past year weight has: decreased > 10 lbs Seatbelt Use: always Do you think of yourself as: straight/heterosexual Gender Identity: Male Assistive Devices: Bedside Commode, Hospital Bed and Walker Results & Data Vital Signs (Past 12 Hours) Vital Signs Temp Pulse Pulse Pulse Resp BP BP 01/06/24 10:50 37.0 C 80 16 155/82 H 01/06/24 08:01 37.0 C 75 18 177/91 H 01/06/24 07:30 80 01/06/24 03:56 70 01/06/24 03:12 91 H 01/06/24 03:10 36.8 C 56 L 20 184/96 H Pulse Ox O2 Del Method 01/06/24 10:50 97 Room Air 01/06/24 08:01 92 Room Air 01/06/24 07:30 01/06/24 03:56 01/06/24 03:12 01/06/24 03:10 95 Room Air PG Care Time/CCT Total # of Minutes Spent Total Time Spent with Patient: Total time spent is greater than 50% in coordination of care (as documented) at patient's floor/unit and/or counseling patient: Coding Level of Care Code 57679 INT INP/OBS CARE 1/40MIN Diagnoses Fracture of multiple teeth S02.5XXA Dental root caries K02.7
--- NOTE | 2024-01-06 16:16 | Hospitalist Progress Note ---
Date of Service January 06, 2024 Assessment & Plan (1) Episode of unresponsiveness: Plan: Likely secondary to postural hypotension Head CT performed in ED showed no acute intracranial abnormality. Of note, patient has a SEVERE allergy to contrast dye. Brain MRI performed in the ED revealed no acute intracranial abnormality. It was noted that he had scattered foci of T2 hyperintensity seen within the periventricular and subcortical white matter, which are nonspecific but according to documentation favor microvascular ischemic change. Appreciate neurology input and recommendation Will get an EEG Outpatient neurology appointment to get EMG as an outpatient No more issues with unresponsiveness (2) History of orthostatic hypotension: Plan: Significant history of orthostatic hypotension with recurrent admission to the hospital Unresponsive episode likely secondary to orthostatic hypotension Autonomic dysfunction and likely complicated by medications like Aricept and Namenda likely the cause of ongoing hypotension Dehydration may play a role in postural drop in blood pressure Will check orthostatic vitals every shift He has been on midodrine 2.5 mg 3 times daily Will discontinue Namenda and likely take of Aricept from the medications regimen Will give intravenous fluid and was advised to drink more fluid Monitor while in the hospital Remains orthostatic hypotensive with symptoms Continue IV fluid and was advised to drink more fluid Will hold Aricept and Namenda for now Orthostatic vitals daily (3) Ambulatory dysfunction: Plan: Branden High is 78y/o M with PMHx of adrenal insufficiency on chronic steroids, bronchial asthma/COPD, ANDRZEJ, history of DVT/PE s/p IVC filter placement (no longer anticoagulated due to bleeding issues), bladder cancer s/p surgery [ off Keytruda secondary to development of myocarditis], prostate cancer s/p radiation therapy, valvular heart disease (moderate , mild AR)/cerebrovascular disease, HTN, orthostatic hypotension, chronic anemia, mild cognitive impairment/dementia, ambulatory dysfunction, urinary incontinence, chronic venous insufficiency, CKD stage III and other problems listed below who presented to the ED via EMS for further medical evaluation following an episode of unresponsiveness w/ associated right eye drooping which has since resolved. Of note, patient was most recently hospitalized from 11/23/23 to 12/09/23 following presentation to the ED for evaluation of generalized weakness and subsequent fall. Hospital course was significant for the treatment of an acute UTI w/ 7-day course of IV ampicillin. Urine culture at that time grew Enterococcus faecalis. Patient was also found to have an VIOLETA (creatinine of 1.4) on admission, which resolved throughout the hospital stay. Head CT at that time showed no acute finding. Patient did have to receive midodrine during admission for orthostatic hypotension and was D/C on midodrine 10 mg p.o. 3 times daily. Patient was also recorded to have a stage II sacral pressure ulcer prior to that admission [wound care was on board during his hospital stay] and subsequently Devlin cath had to be placed d/t baseline urinary incontinence during the hospital course. He was d/c to [facility] and returned home on December 23. 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 may be d/t chronic steroid therapy). UA not ordered in the ED. -Will order UA to r/o any possibility of UTI. Patient is currently on 3x/weekly dosing of Bactrim for PJP prophylaxis. (5) Acute oral pain: Plan: Patient was given 2 doses of Tylenol [totaling 1300 mg] in the ED w/ relief. -CT face ordered to assess for any determinate cause of left-sided jaw pain (? may be oral abscess contributing to his pain and elevated WBC count). -Has been on Unasyn intravenously -Awaiting oromaxillary facial surgery evaluation -Appreciate oromaxillary surgery evaluation and recommendations (6) Adrenal insufficiency: Plan: Continue current dose of prednisone 10 mg every morning (7) Immunosuppression due to chronic steroid use: Plan: Patient currently on chronic prednisone therapy [10mg po QAM --> appears to be his baseline dosage according to prior documentation]. Per previous d/c summary, further tapering was deferred to outpatient endocrine f/u [per previous oncology recommendation to do so during last hospital stay]. Patient did NOT f/u with endocrinology prior to his arrival to the ED today. However, an appointment w/ Dr. Iglesias [[facility]] is scheduled for 01/13/24. -Continue prednisone therapy while hospitalized, may consider endocrinology consult for further guidance. -Continue Bactrim (3x/week dosing) for PJP prophylaxis while hospitalized. (8) History of hematuria: (9) Urinary incontinence: Plan: Patient did meet w/ Dr. Villareal [[facility]] on 12/14/23 for evaluation of gross hematuria following Devlin catheter exchange at [facility]. It was determined that the hematuria was more than likely the result of traumatic Devlin placement and friable bladder mucosa. Patient is scheduled to undergo cystoscopy with Dr. Villareal at the end of next month. -Devlin catheter still in place, monitor I&O's (10) Sacral pressure sore: Plan: Non-blanching sacral erythema present; however, no open wound was seen on examination. -Wound care consult placed, appreciate their input/recommendations. (11) History of DVT (deep vein thrombosis): (12) History of pulmonary embolism: (13) S/P IVC filter: Plan: Not currently on anticoagulation therapy d/t hx of radiation-induced cystitis per chart review. -Patient placed on aspirin 81mg daily and atorvastatin 40mg daily per Dr. Marti's recommendation given patient's hx. 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 Had received multiple rounds of radiation therapy for prostate cancer many years ago. -Patient follows with [facility] [Dr. Xavi Gramajo] in the outpatient setting. He is scheduled to return to the heme/onc clinic in March. (17) Chronic anemia: Plan: Patient did meet w/ Dr. Xavi Gramajo [[facility]] on 12/15/23 for f/u after his most recent hospitalization. Vit B12, folic acid, ferritin and iron panel were conducted at that time. All of those labs came back w/in normal ranges, therefore he did not require intravenous iron therapy. As per above, he is scheduled to return to the heme/onc clinic in March. -Will repeat vit B12, folate, ferritin and iron panel in the AM. -Continue [employer] ferrous sulfate, vit B12 (18) Stage 3 chronic kidney disease: Plan: Creatinine of 1.19 in the ED, appears to be at baseline. -Monitor for any acute changes in renal function throughout hospital stay. (19) Asthma: (20) COPD (chronic obstructive pulmonary disease): Plan: -Continue Trelegy, PRN albuterol inhaler -No evidence of acute exacerbation (21) Mild cognitive impairment: (22) Tremor observed on examination: Plan: Per Dr. Marti, physical examination raised concern for potential Parkinson's disease (?). Dr. Marti mentioned that the patient displayed classic cogwheel rigidity during his examination. -As per above, routine neurology consult has been placed. Will appreciate their input regarding these examination findings. -Monitor for any signs of delirium during hospital stay. -Continue memantine, donepezil and sertraline. (23) GERD (gastroesophageal reflux disease): Plan: -Continue [employer] omeprazole DVT Prophylaxis: SCDs Code Status: Full Code PCP: Deondre Hill MD Dispo: Admit to Med/Surg w/ Telemetry Patient seen in collaboration with Dr. Marti. Please see his addendum for further recommendations regarding medical management of this patient. Admission and Anticipated Discharge Date Admission Date: January 04, 2024 Subjective 01/05/2024 The patient was seen and examined in medical telemetry unit He has been very anxious and complains to have dizziness with postural hypotension which has been going on for a long time Denies any chest pain, palpitation or shortness of breath Denies any abdominal pain nausea or vomiting Remains hemodynamically stable in bed 01/06/2024 The patient was seen and examined in medical telemetry unit in the presence of the He has been stable without any significant symptoms Still has significant orthostatic hypotension with dizziness Review of Systems Review of Systems: All systems reviewed and are unremarkable except as noted below Physical Exam Physical Exam: Lying in bed comfortably Constitutional: + ill appearing and average body habitus Eyes: PERRL, conjunctivae normal, anicteric sclerae ENMT: external ear and nose normal, oropharynx normal Neck: trachea midline, no thyromegaly Respiratory: no respiratory distress Auscultation: lungs clear to auscultation bilaterally Cardiovascular: Rate/Rhythm: regular rate and regular rhythm; not tachycardic Heart Sounds: normal S1 and normal S2; no murmur Extremities: no edema Gastrointestinal (Abdomen): Inspection/Auscultation: normal bowel sounds; abdomen not distended Percussion/Palpation: abdomen soft; abdomen nontender Neurologic: normal touch/pain/proprioception and moves all extremities; no focal motor deficits Lymphatic: no cervical or axillary lymphadenopathy Results & Data Results & Data Vital Signs (Past 12 Hours) Vital Signs Temp Pulse Pulse Resp BP Pulse Ox O2 Del Method 01/06/24 15:58 80 01/06/24 15:50 36.8 C 85 18 125/74 97 Room Air 01/06/24 10:50 37.0 C 80 16 155/82 H 97 Room Air 01/06/24 08:01 37.0 C 75 18 177/91 H 92 Room Air 01/06/24 07:30 80 Laboratory Results Short CBC 01/06/24 Range/Units 08:36 WBC 8.85 (4.8-10.8) K/ul Hgb 13.6 L (14.0-18.0) g/dl Hct 40.7 L (42.0-52.0) % Plt Count 212 (130-400) K/uL BMP 01/06/24 08:36 Sodium 139 Potassium 4.0 Chloride 106 Carbon Dioxide 26 BUN 10 Creatinine 0.95 Glucose 98 Calcium 8.9 Medications Administered Current Inpatient Medications Acetaminophen (Acetaminophen 325 Mg Tab) 650 mg PO Q4H PRN PRN Reason: pain/fever Stop: 02/03/24 17:29 Last Admin: 01/06/24 14:04 Dose: 650 mg Al Hydrox/Mg Hydrox/Simethicone (Aluminum/Magnesium Susp 30 Ml Udc) 30 ml PO Q6H PRN PRN Reason: Dyspepsia Stop: 02/03/24 17:29 Albuterol (Albuterol Hfa 8 Gm Inhaler) 2 puffs INH Q6 PRN PRN Reason: Shortness Of Breath Or Wheezing Stop: 02/03/24 17:29 Amlodipine Besylate (Amlodipine Besylate 5 Mg Tab) 2.5 mg PO [facility] Stop: 02/04/24 03:14 Last Admin: 01/06/24 08:07 Dose: 2.5 mg Amoxicillin/Clavulanate Potassium (Amoxicillin/Clavulanate 875 Mg Tab) 1 tab PO BIDM [facility]; Protocol Stop: 01/15/24 19:59 Last Admin: 01/06/24 08:06 Dose: 1 tab Aspirin (Aspirin 81 Mg Ectab) 81 mg PO DAILY [facility] Stop: 02/04/24 08:59 Last Admin: 01/06/24 08:08 Dose: 81 mg Atorvastatin Calcium (Atorvastatin 40 Mg Tab) [facility] Stop: 02/04/24 08:59 Last Admin: 01/06/24 08:07 Dose: 40 mg Benzocaine (Benzocaine 20% (Orajel) 11.9 Gm Tube) 1 appln MT QID PRN PRN Reason: toothache Stop: 02/03/24 22:27 Last Admin: 01/06/24 14:48 Dose: 1 appln Cyanocobalamin (Cyanocobalamin (B-12) 500 Mcg Tablet) 1,000 mcg PO QAM [facility] Stop: 02/04/24 08:59 Last Admin: 01/06/24 08:07 Dose: 1,000 mcg Donepezil HCl (Donepezil Hcl 10 Mg Tab) 10 mg PO QAM [facility] Stop: 02/04/24 08:59 Last Admin: 01/06/24 08:07 Dose: 10 mg Ferrous Sulfate (Ferrous Sulfate 325 Mg Tab) 325 mg PO QAM [facility] Stop: 02/04/24 08:59 Last Admin: 01/06/24 08:07 Dose: 325 mg Fluticasone Furoate (Fluticasone Furoate 200mcg 14 Puffs/Inhaler) 1 puffs INH PM [facility] Stop: 02/03/24 20:59 Last Admin: 01/05/24 20:33 Dose: 1 puffs Fluticasone Propionate (Fluticasone Propionate Na Spr 16 Gm Btl) 2 sprays NA DAILY [facility] Stop: 02/04/24 08:59 Last Admin: 01/06/24 08:08 Dose: 2 sprays Potassium Chloride/Sodium Chloride (Normal Saline W/20 Meq Kcl) 20 meq in 1,000 mls @ 100 mls/hr IV .Q10H [facility]; Protocol Stop: 01/06/24 20:29 Last Admin: 01/06/24 08:08 Dose: 100 mls/hr Magnesium Hydroxide (Magnesium Hydroxide Susp 30 Ml Udc) 30 ml PO Q6H PRN PRN Reason: Constipation Stop: 02/03/24 17:29 Memantine (Memantine Hcl 10 Mg Tab) 10 mg PO BIDM [facility] Stop: 02/03/24 17:29 Last Admin: 01/05/24 09:21 Dose: 10 mg Midodrine (Midodrine Hcl 2.5 Mg Tab) 2.5 mg PO TIDM [facility] Stop: 02/03/24 17:44 Last Admin: 01/06/24 11:52 Dose: 2.5 mg Pantoprazole Sodium (Pantoprazole 40 Mg Tab) 40 mg PO QAM [facility] Stop: 02/04/24 08:59 Last Admin: 01/06/24 08:07 Dose: 40 mg Polyethylene Glycol (Polyethylene (Miralax) 17 Gm Pack) 17 gm PO DAILY PRN PRN Reason: Constipation Stop: 02/03/24 17:29 Prednisone (Prednisone 10 Mg Tablet) 10 mg PO QAM [facility] Stop: 02/04/24 08:59 Last Admin: 01/06/24 08:08 Dose: 10 mg Senna/Docusate Sodium (Docusate Sodium/Senna 50/8.6mg Tab) 1 tab PO DAILY PRN PRN Reason: Constipation Stop: 02/03/24 17:29 Sertraline HCl (Sertraline Hcl 50 Mg Tablet) 25 mg PO QPM [facility] Stop: 02/03/24 20:59 Last Admin: 01/05/24 20:34 Dose: 25 mg Trimethoprim/Sulfamethoxazole (Sulfamethoxazole/Trimethoprim Ds 800/160mg Tab) 1 tab PO MoWeFr [facility] Stop: 02/04/24 08:59 Last Admin: 01/05/24 09:21 Dose: 1 tab Umeclidinium/Vilanterol (Umeclidinium/Vilanterol 62.5/25mcg 7 Puffs/Inhaler) 1 puffs INH PM [facility] Stop: 02/03/24 20:59 Last Admin: 01/05/24 20:33 Dose: 1 puffs (4) Elevated white blood cell count Leukocytosis type: unspecified Qualified Code(s): D72.829 - Elevated white blood cell count, unspecified (9) Urinary incontinence Urinary Incontinence type: unspecified incontinence Qualified Code(s): R32 - Unspecified urinary incontinence (10) Sacral pressure sore Pressure injury stage: stage 1 Qualified Code(s): L89.151 - Pressure ulcer of sacral region, stage 1 (18) Stage 3 chronic kidney disease Chronic kidney disease stage 3 subtype: unspecified whether 3a or 3b Qualified Code(s): N18.30 - Chronic kidney disease, stage 3 unspecified (19) Asthma Asthma severity: unspecified severity Asthma persistence: unspecified Asthma complication type: unspecified Qualified Code(s): J45.909 - Unspecified asthma, uncomplicated (20) COPD (chronic obstructive pulmonary disease) COPD type: unspecified COPD Qualified Code(s): J44.9 - Chronic obstructive pulmonary disease, unspecified (23) GERD (gastroesophageal reflux disease) Esophagitis presence: esophagitis presence not specified Qualified Code(s): K21.9 - Gastro-esophageal reflux disease without esophagitis
[2024-01-06 22:35] LABS: Appearance Urine Cloudy (Clear); Bacteria Urine Automated None Seen (None Seen); Bilirubin Urine Negative (Negative); Blood Urine 2+ (Negative); Calcium Oxalate Crystals Urine Present (None Prsent); Cast Urine Automated 0-2 /lpf (0-2); Color Urine Yellow; Epithelial Cell Urine Auto 0-2 /hpf (0-2); Glucose Urine UA Negative (Negative); Ketones Urine Negative (Negative); Leukocyte Esterase Urine 3+ (Negative); Nitrite Urine Negative (Negative); Protein Urine Negative (Negative); RBC Urine Automated >20 /hpf (0-2); Urobilinogen Urine Negative (Negative); WBC Urine Automated >50 /hpf (0-5)
[2024-01-07] MEDS: D5W AND 1/2NSS 1,000 ML IV SCH (11:14)
[2024-01-07] MEDS: FLUDROCORTISONE ACETATE 0.1 MG TAB PO SCH (12:37)
--- NOTE | 2024-01-07 17:01 | Hospitalist Progress Note ---
Date of Service January 07, 2024 Assessment & Plan (1) Episode of unresponsiveness: Plan: Likely secondary to postural hypotension Head CT performed in ED showed no acute intracranial abnormality. Of note, patient has a SEVERE allergy to contrast dye. Brain MRI performed in the ED revealed no acute intracranial abnormality. It was noted that he had scattered foci of T2 hyperintensity seen within the periventricular and subcortical white matter, which are nonspecific but according to documentation favor microvascular ischemic change. Appreciate neurology input and recommendation Will get an EEG Outpatient neurology appointment to get EMG as an outpatient No more issues with unresponsiveness Remains symptomatic from orthostatic changes (2) History of orthostatic hypotension: Plan: Significant history of orthostatic hypotension with recurrent admission to the hospital Unresponsive episode likely secondary to orthostatic hypotension Autonomic dysfunction and likely complicated by medications like Aricept and Namenda likely the cause of ongoing hypotension Dehydration may play a role in postural drop in blood pressure Will check orthostatic vitals every shift He has been on midodrine 2.5 mg 3 times daily Will discontinue Namenda and likely take of Aricept from the medications regimen Will give intravenous fluid and was advised to drink more fluid Monitor while in the hospital Remains orthostatic hypotensive with symptoms Continue IV fluid and was advised to drink more fluid Will hold Aricept and Namenda for now Orthostatic vitals daily-significant drop in blood pressure upon standing with symptoms Will continue with more intravenous fluid today and Florinef was added (3) Ambulatory dysfunction: Plan: Branden High is 78y/o M with PMHx of adrenal insufficiency on chronic steroids, bronchial asthma/COPD, ANDRZEJ, history of DVT/PE s/p IVC filter placement (no longer anticoagulated due to bleeding issues), bladder cancer s/p surgery [ off Keytruda secondary to development of myocarditis], prostate cancer s/p radiation therapy, valvular heart disease (moderate , mild AR)/cerebrovascular disease, HTN, orthostatic hypotension, chronic anemia, mild cognitive impairment/dementia, ambulatory dysfunction, urinary incontinence, chronic venous insufficiency, CKD stage III and other problems listed below who presented to the ED via EMS for further medical evaluation following an episode of unresponsiveness w/ associated right eye drooping which has since resolved. Of note, patient was most recently hospitalized from 11/23/23 to 12/09/23 following presentation to the ED for evaluation of generalized weakness and subsequent fall. Hospital course was significant for the treatment of an acute UTI w/ 7-day course of IV ampicillin. Urine culture at that time grew Enterococcus faecalis. Patient was also found to have an VIOLETA (creatinine of 1.4) on admission, which resolved throughout the hospital stay. Head CT at that time showed no acute finding. Patient did have to receive midodrine during admission for orthostatic hypotension and was D/C on midodrine 10 mg p.o. 3 times daily. Patient was also recorded to have a stage II sacral pressure ulcer prior to that admission [wound care was on board during his hospital stay] and subsequently Devlin cath had to be placed d/t baseline urinary incontinence during the hospital course. He was d/c to [facility] and returned home on December 23. 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 may be d/t chronic steroid therapy). UA not ordered in the ED. -Will order UA to r/o any possibility of UTI. Patient is currently on 3x/weekly dosing of Bactrim for PJP prophylaxis. (5) Acute oral pain: Plan: Patient was given 2 doses of Tylenol [totaling 1300 mg] in the ED w/ relief. -CT face ordered to assess for any determinate cause of left-sided jaw pain (? may be oral abscess contributing to his pain and elevated WBC count). -Has been on Unasyn intravenously -Awaiting oromaxillary facial surgery evaluation -Appreciate oromaxillary surgery evaluation and recommendations (6) Adrenal insufficiency: Plan: Continue current dose of prednisone 10 mg every morning (7) Immunosuppression due to chronic steroid use: Plan: Patient currently on chronic prednisone therapy [10mg po QAM --> appears to be his baseline dosage according to prior documentation]. Per previous d/c summary, further tapering was deferred to outpatient endocrine f/u [per previous oncology recommendation to do so during last hospital stay]. Patient did NOT f/u with endocrinology prior to his arrival to the ED today. However, an appointment w/ Dr. Iglesisa [[facility]] is scheduled for 01/13/24. -Continue prednisone therapy while hospitalized, may consider endocrinology consult for further guidance. -Continue Bactrim (3x/week dosing) for PJP prophylaxis while hospitalized. (8) History of hematuria: (9) Urinary incontinence: Plan: Patient did meet w/ Dr. Villareal [[facility]] on 12/14/23 for evaluation of gross hematuria following Devlin catheter exchange at [facility]. It was determined that the hematuria was more than likely the result of traumatic Devlin placement and friable bladder mucosa. Patient is scheduled to undergo cystoscopy with Dr. Villareal at the end of next month. -Devlin catheter still in place, monitor I&O's (10) Sacral pressure sore: Plan: Non-blanching sacral erythema present; however, no open wound was seen on examination. -Wound care consult placed, appreciate their input/recommendations. (11) History of DVT (deep vein thrombosis): (12) History of pulmonary embolism: (13) S/P IVC filter: Plan: Not currently on anticoagulation therapy d/t hx of radiation-induced cystitis per chart review. -Patient placed on aspirin 81mg daily and atorvastatin 40mg daily per Dr. Marti's recommendation given patient's hx. 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 Had received multiple rounds of radiation therapy for prostate cancer many years ago. -Patient follows with [facility] [Dr. Xavi Gramajo] in the outpatient setting. He is scheduled to return to the heme/onc clinic in March. (17) Chronic anemia: Plan: Patient did meet w/ Dr. Xavi Gramajo [[facility]] on 12/15/23 for f/u after his most recent hospitalization. Vit B12, folic acid, ferritin and iron panel were conducted at that time. All of those labs came back w/in normal ranges, therefore he did not require intravenous iron therapy. As per above, he is scheduled to return to the heme/onc clinic in March. -Will repeat vit B12, folate, ferritin and iron panel in the AM. -Continue [employer] ferrous sulfate, vit B12 (18) Stage 3 chronic kidney disease: Plan: Creatinine of 1.19 in the ED, appears to be at baseline. -Monitor for any acute changes in renal function throughout hospital stay. (19) Asthma: (20) COPD (chronic obstructive pulmonary disease): Plan: -Continue Trelegy, PRN albuterol inhaler -No evidence of acute exacerbation (21) Mild cognitive impairment: (22) Tremor observed on examination: Plan: Per Dr. Marti, physical examination raised concern for potential Parkinson's disease (?). Dr. Marti mentioned that the patient displayed classic cogwheel rigidity during his examination. -As per above, routine neurology consult has been placed. Will appreciate their input regarding these examination findings. -Monitor for any signs of delirium during hospital stay. -Continue memantine, donepezil and sertraline. (23) GERD (gastroesophageal reflux disease): Plan: -Continue [employer] omeprazole DVT Prophylaxis: SCDs Code Status: Full Code PCP: Deondre Hill MD Dispo: Admit to Med/Surg w/ Telemetry Patient seen in collaboration with Dr. Marti. Please see his addendum for further recommendations regarding medical management of this patient. Admission and Anticipated Discharge Date Admission Date: January 04, 2024 Subjective 01/05/2024 The patient was seen and examined in medical telemetry unit He has been very anxious and complains to have dizziness with postural hypotension which has been going on for a long time Denies any chest pain, palpitation or shortness of breath Denies any abdominal pain nausea or vomiting Remains hemodynamically stable in bed 01/06/2024 The patient was seen and examined in medical telemetry unit in the presence of the He has been stable without any significant symptoms Still has significant orthostatic hypotension with dizziness 01/07/2024 The patient was seen and examined in telemetry unit in the presence of the He remains orthostatic and symptomatic Complains to have watering from the eyes Review of Systems Review of Systems: All systems reviewed and are unremarkable except as noted below Physical Exam Physical Exam: Lying in bed comfortably Constitutional: + ill appearing and average body habitus Eyes: PERRL, conjunctivae normal, anicteric sclerae ENMT: external ear and nose normal, oropharynx normal Neck: trachea midline, no thyromegaly Respiratory: no respiratory distress Auscultation: lungs clear to auscultation bilaterally Cardiovascular: Rate/Rhythm: regular rate and regular rhythm; not tachycardic Heart Sounds: normal S1 and normal S2; no murmur Extremities: no edema Gastrointestinal (Abdomen): Inspection/Auscultation: normal bowel sounds; abdomen not distended Percussion/Palpation: abdomen soft; abdomen nontender Neurologic: normal touch/pain/proprioception and moves all extremities; no focal motor deficits Lymphatic: no cervical or axillary lymphadenopathy Results & Data Results & Data Vital Signs (Past 12 Hours) Vital Signs Temp Pulse Pulse Resp BP Pulse Ox O2 Del Method 01/07/24 11:16 36.7 C 79 18 153/93 H 96 Room Air 01/07/24 09:03 77 01/07/24 07:27 Room Air 01/07/24 07:21 36.8 C 83 18 150/83 H 96 Room Air Laboratory Results Urine 01/06/24 Range/Units 21:50 Urine Color Yellow Urine Appearance Cloudy A (Clear) Urine pH 6.0 (4.5-7.5) Ur Specific [place] 1.010 (1.000-1.030) Urine Protein Negative (Negative) Urine Glucose (UA) Negative (Negative) Medications Administered Current Inpatient Medications Acetaminophen (Acetaminophen 325 Mg Tab) 650 mg PO Q4H PRN PRN Reason: pain/fever Stop: 02/03/24 17:29 Last Admin: 01/07/24 18:09 Dose: 650 mg Al Hydrox/Mg Hydrox/Simethicone (Aluminum/Magnesium Susp 30 Ml Udc) 30 ml PO Q6H PRN PRN Reason: Dyspepsia Stop: 02/03/24 17:29 Albuterol (Albuterol Hfa 8 Gm Inhaler) 2 puffs INH Q6 PRN PRN Reason: Shortness Of Breath Or Wheezing Stop: 02/03/24 17:29 Amlodipine Besylate (Amlodipine Besylate 5 Mg Tab) 2.5 mg PO QAM [facility] Stop: 02/04/24 03:14 Last Admin: 01/07/24 07:43 Dose: 2.5 mg Amoxicillin/Clavulanate Potassium (Amoxicillin/Clavulanate 875 Mg Tab) 1 tab PO BIDM [facility]; Protocol Stop: 01/15/24 19:59 Last Admin: 01/07/24 16:06 Dose: 1 tab Artificial Tears (Artificial Tears) 1 drops OPB QID PRN PRN Reason: Dryness Stop: 02/06/24 13:58 Aspirin (Aspirin 81 Mg Ectab) 81 mg PO DAILY [facility] Stop: 02/04/24 08:59 Last Admin: 01/07/24 07:43 Dose: 81 mg Atorvastatin Calcium (Atorvastatin 40 Mg Tab) 40 mg PO QAM [facility] Stop: 02/04/24 08:59 Last Admin: 01/07/24 07:43 Dose: 40 mg Benzocaine (Benzocaine 20% (Orajel) 11.9 Gm Tube) 1 appln MT QID PRN PRN Reason: toothache Stop: 02/03/24 22:27 Last Admin: 01/07/24 04:23 Dose: 1 appln Cyanocobalamin (Cyanocobalamin (B-12) 500 Mcg Tablet) 1,000 mcg PO QAM [facility] Stop: 02/04/24 08:59 Last Admin: 01/07/24 07:43 Dose: 1,000 mcg Donepezil HCl (Donepezil Hcl 10 Mg Tab) 10 mg PO QAM [facility] Stop: 02/04/24 08:59 Last Admin: 01/06/24 08:07 Dose: 10 mg Ferrous Sulfate (Ferrous Sulfate 325 Mg Tab) 325 mg PO QAM [facility] Stop: 02/04/24 08:59 Last Admin: 01/07/24 07:43 Dose: 325 mg Fludrocortisone Acetate (Fludrocortisone Acetate 0.1 Mg Tab) 0.1 mg PO QAM [facility] Stop: 02/06/24 10:44 Last Admin: 01/07/24 12:37 Dose: 0.1 mg Fluticasone Furoate (Fluticasone Furoate 200mcg 14 Puffs/Inhaler) 1 puffs INH PM [facility] Stop: 02/03/24 20:59 Last Admin: 01/06/24 20:00 Dose: 1 puffs Fluticasone Propionate (Fluticasone Propionate Na Spr 16 Gm Btl) 2 sprays NA DAILY [facility] Stop: 02/04/24 08:59 Last Admin: 01/07/24 07:44 Dose: 2 sprays Dextrose/Sodium Chloride (D5w And 1/2nss) 1,000 mls @ 125 mls/hr IV .Q8H [facility] Stop: 01/08/24 10:59 Last Admin: 01/07/24 11:14 Dose: 125 mls/hr Magnesium Hydroxide (Magnesium Hydroxide Susp 30 Ml Udc) 30 ml PO Q6H PRN PRN Reason: Constipation Stop: 02/03/24 17:29 Memantine (Memantine Hcl 10 Mg Tab) 10 mg PO BIDM [facility] Stop: 02/03/24 17:29 Last Admin: 01/05/24 09:21 Dose: 10 mg Midodrine (Midodrine Hcl 2.5 Mg Tab) 2.5 mg PO TIDM [facility] Stop: 02/03/24 17:44 Last Admin: 01/07/24 16:06 Dose: 2.5 mg Pantoprazole Sodium (Pantoprazole 40 Mg Tab) 40 mg PO QAM [facility] Stop: 02/04/24 08:59 Last Admin: 01/07/24 07:43 Dose: 40 mg Polyethylene Glycol (Polyethylene (Miralax) 17 Gm Pack) 17 gm PO DAILY PRN PRN Reason: Constipation Stop: 02/03/24 17:29 Prednisone (Prednisone 10 Mg Tablet) 10 mg PO QAM [facility] Stop: 02/04/24 08:59 Last Admin: 01/07/24 07:43 Dose: 10 mg Senna/Docusate Sodium (Docusate Sodium/Senna 50/8.6mg Tab) 1 tab PO DAILY PRN PRN Reason: Constipation Stop: 02/03/24 17:29 Sertraline HCl (Sertraline Hcl 50 Mg Tablet) 25 mg PO QPM [facility] Stop: 02/03/24 20:59 Last Admin: 01/06/24 19:58 Dose: 25 mg Trimethoprim/Sulfamethoxazole (Sulfamethoxazole/Trimethoprim Ds 800/160mg Tab) 1 tab PO MoWeFr [facility] Stop: 02/04/24 08:59 Last Admin: 01/07/24 07:43 Dose: 1 tab Umeclidinium/Vilanterol (Umeclidinium/Vilanterol 62.5/25mcg 7 Puffs/Inhaler) 1 puffs INH PM [facility] Stop: 02/03/24 20:59 Last Admin: 01/06/24 20:00 Dose: 1 puffs (4) Elevated white blood cell count Leukocytosis type: unspecified Qualified Code(s): D72.829 - Elevated white blood cell count, unspecified (9) Urinary incontinence Urinary Incontinence type: unspecified incontinence Qualified Code(s): R32 - Unspecified urinary incontinence (10) Sacral pressure sore Pressure injury stage: stage 1 Qualified Code(s): L89.151 - Pressure ulcer of sacral region, stage 1 (18) Stage 3 chronic kidney disease Chronic kidney disease stage 3 subtype: unspecified whether 3a or 3b Qualified Code(s): N18.30 - Chronic kidney disease, stage 3 unspecified (19) Asthma Asthma complication type: unspecified Asthma persistence: unspecified Asthma severity: unspecified severity Qualified Code(s): J45.909 - Unspecified asthma, uncomplicated (20) COPD (chronic obstructive pulmonary disease) COPD type: unspecified COPD Qualified Code(s): J44.9 - Chronic obstructive pulmonary disease, unspecified (23) GERD (gastroesophageal reflux disease) Esophagitis presence: esophagitis presence not specified Qualified Code(s): K21.9 - Gastro-esophageal reflux disease without esophagitis
--- NOTE | 2024-01-08 15:46 | Hospitalist Progress Note ---
Date of Service January 08, 2024 Assessment & Plan (1) Episode of unresponsiveness: Plan: Likely secondary to postural hypotension Head CT performed in ED showed no acute intracranial abnormality. Of note, patient has a SEVERE allergy to contrast dye. Brain MRI performed in the ED revealed no acute intracranial abnormality. It was noted that he had scattered foci of T2 hyperintensity seen within the periventricular and subcortical white matter, which are nonspecific but according to documentation favor microvascular ischemic change. Appreciate neurology input and recommendation Will get an EEG Outpatient neurology appointment to get EMG as an outpatient No more issues with unresponsiveness Remains symptomatic from orthostatic changes No more episodes of unresponsiveness (2) History of orthostatic hypotension: Plan: Significant history of orthostatic hypotension with recurrent admission to the hospital Unresponsive episode likely secondary to orthostatic hypotension Autonomic dysfunction and likely complicated by medications like Aricept and Namenda likely the cause of ongoing hypotension Dehydration may play a role in postural drop in blood pressure Will check orthostatic vitals every shift He has been on midodrine 2.5 mg 3 times daily Will discontinue Namenda and likely take of Aricept from the medications regimen Will give intravenous fluid and was advised to drink more fluid Monitor while in the hospital Remains orthostatic hypotensive with symptoms Continue IV fluid and was advised to drink more fluid Will hold Aricept and Namenda for now Orthostatic vitals daily-significant drop in blood pressure upon standing with symptoms Will continue with more intravenous fluid today and Anaf was added Blood pressure is maintaining reasonably with posture but remains symptomatic on standing Will continue with PT and OT evaluation (3) Ambulatory dysfunction: Plan: Branden High is 78y/o M with PMHx of adrenal insufficiency on chronic steroids, bronchial asthma/COPD, ANDRZEJ, history of DVT/PE s/p IVC filter placement (no longer anticoagulated due to bleeding issues), bladder cancer s/p surgery [ off Keytruda secondary to development of myocarditis], prostate cancer s/p radiation therapy, valvular heart disease (moderate , mild AR)/cerebrovascular disease, HTN, orthostatic hypotension, chronic anemia, mild cognitive impairment/dementia, ambulatory dysfunction, urinary incontinence, chronic venous insufficiency, CKD stage III and other problems listed below who presented to the ED via EMS for further medical evaluation following an episode of unresponsiveness w/ associated right eye drooping which has since resolved. Of note, patient was most recently hospitalized from 11/23/23 to 12/09/23 following presentation to the ED for evaluation of generalized weakness and subsequent fall. Hospital course was significant for the treatment of an acute UTI w/ 7-day course of IV ampicillin. Urine culture at that time grew Enterococcus faecalis. Patient was also found to have an VIOLETA (creatinine of 1.4) on admission, which resolved throughout the hospital stay. Head CT at that time showed no acute finding. Patient did have to receive midodrine during admission for orthostatic hypotension and was D/C on midodrine 10 mg p.o. 3 times daily. Patient was also recorded to have a stage II sacral pressure ulcer prior to that admission [wound care was on board during his hospital stay] and subsequently Devlin cath had to be placed d/t baseline urinary incontinence during the hospital course. He was d/c to [facility] and returned home on December 23. 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 may be d/t chronic steroid therapy). UA not ordered in the ED. -Will order UA to r/o any possibility of UTI. Patient is currently on 3x/weekly dosing of Bactrim for PJP prophylaxis. (5) Acute oral pain: Plan: Patient was given 2 doses of Tylenol [totaling 1300 mg] in the ED w/ relief. -CT face ordered to assess for any determinate cause of left-sided jaw pain (? may be oral abscess contributing to his pain and elevated WBC count). -Has been on Unasyn intravenously -Awaiting oromaxillary facial surgery evaluation -Appreciate oromaxillary surgery evaluation and recommendations (6) Adrenal insufficiency: Plan: Continue current dose of prednisone 10 mg every morning (7) Immunosuppression due to chronic steroid use: Plan: Patient currently on chronic prednisone therapy [10mg po QAM --> appears to be his baseline dosage according to prior documentation]. Per previous d/c summary, further tapering was deferred to outpatient endocrine f/u [per previous oncology recommendation to do so during last hospital stay]. Patient did NOT f/u with endocrinology prior to his arrival to the ED today. However, an appointment w/ Dr. Iglesias [[facility]] is scheduled for 01/13/24. -Continue prednisone therapy while hospitalized, may consider endocrinology co nsult for further guidance. -Continue Bactrim (3x/week dosing) for PJP prophylaxis while hospitalized. (8) History of hematuria: (9) Urinary incontinence: Plan: Patient did meet w/ Dr. Villareal [[facility]] on 12/14/23 for evaluation of gross hematuria following Devlin catheter exchange at [facility]. It was determined that the hematuria was more than likely the result of traumatic Devlin placement and friable bladder mucosa. Patient is scheduled to undergo cystoscopy with Dr. Villareal at the end of next month. -Devlin catheter still in place, monitor I&O's (10) Sacral pressure sore: Plan: Non-blanching sacral erythema present; however, no open wound was seen on examination. -Wound care consult placed, appreciate their input/recommendations. (11) History of DVT (deep vein thrombosis): (12) History of pulmonary embolism: (13) S/P IVC filter: Plan: Not currently on anticoagulation therapy d/t hx of radiation-induced cystitis per chart review. -Patient placed on aspirin 81mg daily and atorvastatin 40mg daily per Dr. Marti's recommendation given patient's hx. 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 Had received multiple rounds of radiation therapy for prostate cancer many years ago. -Patient follows with [facility] [Dr. Xavi Gramajo] in the outpatient setting. He is scheduled to return to the heme/onc clinic in March. (17) Chronic anemia: Plan: Patient did meet w/ Dr. Xavi Gramajo [[facility]] on 12/15/23 for f/u after his most recent hospitalization. Vit B12, folic acid, ferritin and iron panel were conducted at that time. All of those labs came back w/in normal ranges, therefore he did not require intravenous iron therapy. As per above, he is scheduled to return to the heme/onc clinic in March. -Will repeat vit B12, folate, ferritin and iron panel in the AM. -Continue [employer] ferrous sulfate, vit B12 (18) Stage 3 chronic kidney disease: Plan: Creatinine of 1.19 in the ED, appears to be at baseline. -Monitor for any acute changes in renal function throughout hospital stay. (19) Asthma: (20) COPD (chronic obstructive pulmonary disease): Plan: -Continue Trelegy, PRN albuterol inhaler -No evidence of acute exacerbation (21) Mild cognitive impairment: (22) Tremor observed on examination: Plan: Per Dr. Marti, physical examination raised concern for potential Parkinson's di sease (?). Dr. Marti mentioned that the patient displayed classic cogwheel rigidity during his examination. -As per above, routine neurology consult has been placed. Will appreciate their input regarding these examination findings. -Monitor for any signs of delirium during hospital stay. -Continue memantine, donepezil and sertraline. (23) GERD (gastroesophageal reflux disease): Plan: -Continue [employer] omeprazole DVT Prophylaxis: SCDs Code Status: Full Code PCP: Deondre Hill MD Dispo: Admit to Med/Surg w/ Telemetry Patient seen in collaboration with Dr. Marti. Please see his addendum for further recommendations regarding medical management of this patient. Admission and Anticipated Discharge Date Admission Date: January 04, 2024 Subjective 01/05/2024 The patient was seen and examined in medical telemetry unit He has been very anxious and complains to have dizziness with postural hypotension which has been going on for a long time Denies any chest pain, palpitation or shortness of breath Denies any abdominal pain nausea or vomiting Remains hemodynamically stable in bed 01/06/2024 The patient was seen and examined in medical telemetry unit in the presence of the He has been stable without any significant symptoms Still has significant orthostatic hypotension with dizziness 01/07/2024 The patient was seen and examined in telemetry unit in the presence of the He remains orthostatic and symptomatic Complains to have watering from the eyes 01/08/2024 The patient was seen and examined in medical telemetry unit He has been feeling better Still complains dizziness on standing but blood pressure has not been dropping as before Denies any other symptoms Review of Systems Review of Systems: All systems reviewed and are unremarkable except as noted below Physical Exam Physical Exam: Lying in bed comfortably Constitutional: + ill appearing and average body habitus Eyes: PERRL, conjunctivae normal, anicteric sclerae ENMT: external ear and nose normal, oropharynx normal Neck: trachea midline, no thyromegaly Respiratory: no respiratory distress Auscultation: lungs clear to auscultation bilaterally Cardiovascular: Rate/Rhythm: regular rate and regular rhythm; not tachycardic Heart Sounds: normal S1 and normal S2; no murmur Extremities: no edema Gastrointestinal (Abdomen): Inspection/Auscultation: normal bowel sounds; abdomen not distended Percussion/Palpation: abdomen soft; abdomen nontender Neurologic: normal touch/pain/proprioception and moves all extremities; no focal motor deficits Lymphatic: no cervical or axillary lymphadenopathy Results & Data Results & Data Vital Signs (Past 12 Hours) Vital Signs Temp Pulse Pulse Resp BP Pulse Ox O2 Del Method 01/08/24 15:13 36.8 C 80 18 164/88 H 98 Room Air 01/08/24 11:40 36.5 C 80 20 169/80 H 93 Room Air 01/08/24 07:28 76 01/08/24 07:28 36.6 C 79 18 156/87 H 97 Room Air 01/08/24 07:15 Room Air 01/08/24 03:45 36.6 C 80 20 158/90 H 97 Room Air Medications Administered Current Inpatient Medications Acetaminophen (Acetaminophen 325 Mg Tab) 650 mg PO Q4H PRN PRN Reason: pain/fever Stop: 02/03/24 17:29 Last Admin: 01/08/24 13:43 Dose: 650 mg Al Hydrox/Mg Hydrox/Simethicone (Aluminum/Magnesium Susp 30 Ml Udc) 30 ml PO Q6H PRN PRN Reason: Dyspepsia Stop: 02/03/24 17:29 Albuterol (Albuterol Hfa 8 Gm Inhaler) 2 puffs INH Q6 PRN PRN Reason: Shortness Of Breath Or Wheezing Stop: 02/03/24 17:29 Amlodipine Besylate (Amlodipine Besylate 5 Mg Tab) 2.5 mg PO QAM TAWNY Stop: 02/04/24 03:14 Last Admin: 01/08/24 08:15 Dose: 2.5 mg Amoxicillin/Clavulanate Potassium (Amoxicillin/Clavulanate 875 Mg Tab) 1 tab PO BIDM TAWNY; Protocol Stop: 01/15/24 19:59 Last Admin: 01/08/24 08:15 Dose: 1 tab Artificial Tears (Artificial Tears) 1 drops OPB QID PRN PRN Reason: Dryness Stop: 02/06/24 13:58 Aspirin (Aspirin 81 Mg Ectab) 81 mg PO DAILY TAWNY Stop: 02/04/24 08:59 Last Admin: 01/08/24 08:15 Dose: 81 mg Atorvastatin Calcium (Atorvastatin 40 Mg Tab) 40 mg PO QAM [facility] Stop: 02/04/24 08:59 Last Admin: 01/08/24 08:15 Dose: 40 mg Benzocaine (Benzocaine 20% (Orajel) 11.9 Gm Tube) 1 appln MT QID PRN PRN Reason: toothache Stop: 02/03/24 22:27 Last Admin: 01/07/24 20:25 Dose: 1 appln Cyanocobalamin (Cyanocobalamin (B-12) 500 Mcg Tablet) 1,000 mcg PO QAM [facility] Stop: 02/04/24 08:59 Last Admin: 01/08/24 08:15 Dose: 1,000 mcg Donepezil HCl (Done[facility]il Hcl 10 Mg Tab) [facility] Stop: 02/04/24 08:59 Last Admin: 01/06/24 08:07 Dose: 10 mg Ferrous Sulfate (Ferrous Sulfate 325 Mg Tab) 325 mg PO QAM [facility] Stop: 02/04/24 08:59 Last Admin: 01/08/24 08:15 Dose: 325 mg Fludrocortisone Acetate (Fludrocortisone Acetate 0.1 Mg Tab) 0.1 mg PO QAM [facility] Stop: 02/06/24 10:44 Last Admin: 01/08/24 08:15 Dose: 0.1 mg Fluticasone Furoate (Fluticasone Furoate 200mcg 14 Puffs/Inhaler) 1 puffs INH PM [facility] Stop: 02/03/24 20:59 Last Admin: 01/07/24 20:26 Dose: 1 puffs Fluticasone Propionate (Fluticasone Propionate Na Spr 16 Gm Btl) 2 sprays NA DAILY [facility] Stop: 02/04/24 08:59 Last Admin: 01/08/24 08:15 Dose: 2 sprays Magnesium Hydroxide (Magnesium Hydroxide Susp 30 Ml Udc) 30 ml PO Q6H PRN PRN Reason: Constipation Stop: 02/03/24 17:29 Memantine (Memantine Hcl 10 Mg Tab) 10 mg PO BIDM [facility] Stop: 02/03/24 17:29 Last Admin: 01/05/24 09:21 Dose: 10 mg Midodrine (Midodrine Hcl 2.5 Mg Tab) 2.5 mg PO TIDM [facility] Stop: 02/03/24 17:44 Last Admin: 01/08/24 12:21 Dose: 2.5 mg Pantoprazole Sodium (Pantoprazole 40 Mg Tab) 40 mg PO QAM [facility] Stop: 02/04/24 08:59 Last Admin: 01/08/24 08:15 Dose: 40 mg Polyethylene Glycol (Polyethylene (Miralax) 17 Gm Pack) 17 gm PO DAILY PRN PRN Reason: Constipation Stop: 02/03/24 17:29 Prednisone (Pred[facility] 10 Mg Tablet) [facility] Stop: 02/04/24 08:59 Last Admin: 01/08/24 08:15 Dose: 10 mg Senna/Docusate Sodium (Docusate Sodium/Senna 50/8.6mg Tab) 1 tab PO DAILY PRN PRN Reason: Constipation Stop: 02/03/24 17:29 Sertraline HCl (Sertraline Hcl 50 Mg Tablet) 25 mg PO QPM [facility] Stop: 02/03/24 20:59 Last Admin: 01/07/24 20:26 Dose: 25 mg Trimethoprim/Sulfamethoxazole (Sulfamethoxazole/Trimethoprim Ds 800/160mg Tab) 1 tab PO MoWeFr [facility] Stop: 02/04/24 08:59 Last Admin: 01/07/24 07:43 Dose: 1 tab Umeclidinium/Vilanterol (Umeclidinium/Vilanterol 62.5/25mcg 7 Puffs/Inhaler) 1 puffs INH PM [facility] Stop: 02/03/24 20:59 Last Admin: 01/07/24 20:26 Dose: 1 puffs (4) Elevated white blood cell count Leukocytosis type: unspecified Qualified Code(s): D72.829 - Elevated white blood cell count, unspecified (9) Urinary incontinence Urinary Incontinence type: unspecified incontinence Qualified Code(s): R32 - Unspecified urinary incontinence (10) Sacral pressure sore Pressure injury stage: stage 1 Qualified Code(s): L89.151 - Pressure ulcer of sacral region, stage 1 (18) Stage 3 chronic kidney disease Chronic kidney disease stage 3 subtype: unspecified whether 3a or 3b Qualified Code(s): N18.30 - Chronic kidney disease, stage 3 unspecified (19) Asthma Asthma severity: unspecified severity Asthma persistence: unspecified Asthma complication type: unspecified Qualified Code(s): J45.909 - Unspecified asthma, uncomplicated (20) COPD (chronic obstructive pulmonary disease) COPD type: unspecified COPD Qualified Code(s): J44.9 - Chronic obstructive pulmonary disease, unspecified (23) GERD (gastroesophageal reflux disease) Esophagitis presence: esophagitis presence not specified Qualified Code(s): K21.9 - Gastro-esophageal reflux disease without esophagitis
[2024-01-10 08:28] LABS: Basophils # (auto) 0.05 K/uL (0.00-0.20); Basophils % (auto) 0.6 %; Eosinophils # (auto) 0.04 K/uL (0.00-0.50); Eosinophils % (auto) 0.5 %; Hematocrit (blood only) 40.5 % (42.0-52.0); Hemoglobin 13.4 g/dl (14.0-18.0); Immature Granulocytes # (auto) 0.04 K/uL (0.01-0.20); Immature Granulocytes % (auto) 0.5 %; Lymphocytes # (auto) 2.35 K/uL (1.20-3.40); Lymphocytes % (auto) 26.6 %; Mean Corpuscular Hemoglobin 31.2 pg (25.0-34.0); Mean Corpuscular Hgb Conc 33.1 g/dL (32.0-36.0); Mean Corpuscular Volume 94.2 fL (80.0-100.0); Mean Platelet Volume 8.7 fL (9.4-12.4); Monocytes # (auto) 0.63 K/uL (0.11-0.59); Monocytes % (auto) 7.1 %; Neutrophils # (auto) 5.72 K/uL (1.40-6.50); Neutrophils % (auto) 64.7 %; Platelet Count 184 K/uL (130-400); RDW Coefficient of Variation 14.8 % (11.5-14.5); RDW Standard Deviation 50.7 fL (36.4-46.3); White Blood Count 8.83 K/ul (4.8-10.8)
[2024-01-10 08:41] LABS: BUN Creatinine Ratio 18.4 (10-20); Calcium 8.5 mg/dl (8.6-10.3); Creatinine Clr Calc Pharmacy 73.4 ml/min; Est GFR (African American) 85.8 ml/min; Est GFR (Non-African American) 74.1 ml/min; Magnesium 1.6 mg/dl (1.7-2.4); Phosphorus 3.5 mg/dl (2.5-4.9); Potassium 3.5 mmol/L (3.5-5.1)
[2024-01-10] MEDS: ARTIFICIAL TEARS OPB PRN (13:19)
--- NOTE | 2024-01-10 14:03 | Hospitalist Progress Note ---
Date of Service January 10, 2024 Delayed note for DC 01/09/2024 Assessment & Plan (1) Episode of unresponsiveness: Plan: Likely secondary to postural hypotension Head CT performed in ED showed no acute intracranial abnormality. Of note, patient has a SEVERE allergy to contrast dye. Brain MRI performed in the ED revealed no acute intracranial abnormality. It was noted that he had scattered foci of T2 hyperintensity seen within the periventricular and subcortical white matter, which are nonspecific but according to documentation favor microvascular ischemic change. Appreciate neurology input and recommendation Will get an EEG Outpatient neurology appointment to get EMG as an outpatient No more issues with unresponsiveness Remains symptomatic from orthostatic changes No more episodes of unresponsiveness Remains dizzy with standing (2) History of orthostatic hypotension: Plan: Significant history of orthostatic hypotension with recurrent admission to the hospital Unresponsive episode likely secondary to orthostatic hypotension Autonomic dysfunction and likely complicated by medications like Aricept and Namenda likely the cause of ongoing hypotension Dehydration may play a role in postural drop in blood pressure Will check orthostatic vitals every shift He has been on midodrine 2.5 mg 3 times daily Will discontinue Namenda and likely take of Aricept from the medications regimen Will give intravenous fluid and was advised to drink more fluid Monitor while in the hospital Remains orthostatic hypotensive with symptoms Continue IV fluid and was advised to drink more fluid Will hold Aricept and Namenda for now Orthostatic vitals daily-significant drop in blood pressure upon standing with symptoms Will continue with more intravenous fluid today and Florinef was added Blood pressure is maintaining reasonably with posture but remains symptomatic on standing Will continue with PT and OT evaluation Remains orthostatic (3) Ambulatory dysfunction: Plan: Branden High is 78y/o M with PMHx of adrenal insufficiency on chronic steroids, bronchial asthma/COPD, ANDRZEJ, history of DVT/PE s/p IVC filter placement (no longer anticoagulated due to bleeding issues), bladder cancer s/p surgery [ off Keytruda secondary to development of myocarditis], prostate cancer s/p radiation therapy, valvular heart disease (moderate , mild AR)/cerebrovascular disease, HTN, orthostatic hypotension, chronic anemia, mild cognitive impairment/dementia, ambulatory dysfunction, urinary incontinence, chronic venous insufficiency, CKD stage III and other problems listed below who presented to the ED via EMS for further medical evaluation following an episode of unresponsiveness w/ associated right eye drooping which has since resolved. Of note, patient was most recently hospitalized from 4/9/24 to 12/09/23 following presentation to the ED for evaluation of generalized weakness and subsequent fall. Hospital course was significant for the treatment of an acute UTI w/ 7-day course of IV ampicillin. Urine culture at that time grew Enterococcus faecalis. Patient was also found to have an VIOLETA (creatinine of 1.4) on admission, which resolved throughout the hospital stay. Head CT at that time showed no acute finding. Patient did have to receive midodrine during admission for orthostatic hypotension and was D/C on midodrine 10 mg p.o. 3 times daily. Patient was also recorded to have a stage II sacral pressure ulcer prior to that admission [wound care was on board during his hospital stay] and subsequently Devlin cath had to be placed d/t baseline urinary incontinence during the hospital course. He was d/c to [facility] and returned home on December 23. 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 may be d/t chronic steroid therapy). UA not ordered in the ED. -Will order UA to r/o any possibility of UTI. Patient is currently on 3x/weekly dosing of Bactrim for PJP prophylaxis. (5) Acute oral pain: Plan: Patient was given 2 doses of Tylenol [totaling 1300 mg] in the ED w/ relief. -CT face ordered to assess for any determinate cause of left-sided jaw pain (? may be oral abscess contributing to his pain and elevated WBC count). -Has been on Unasyn intravenously -Awaiting oromaxillary facial surgery evaluation -Appreciate oromaxillary surgery evaluation and recommendations -Continue with the pain medication (6) Adrenal insufficiency: Plan: Continue current dose of prednisone 10 mg every morning (7) Immunosuppression due to chronic steroid use: Plan: Patient currently on chronic prednisone therapy [10mg po QAM --> appears to be his baseline dosage according to prior documentation]. Per previous d/c summary, further tapering was deferred to outpatient endocrine f/u [per previous oncology recommendation to do so during last hospital stay]. Patient did NOT f/u with endocrinology prior to his arrival to the ED today. However, an appointment w/ Dr. Iglesias [[facility]] is scheduled for 01/13/24. -Continue prednisone therapy while hospitalized, may consider endocrinology consult for further guidance. -Continue Bactrim (3x/week dosing) for PJP prophylaxis while hospitalized. (8) History of hematuria: (9) Urinary incontinence: Plan: Patient did meet w/ Dr. Villareal [[facility]] on 12/14/23 for evaluation of gross hematuria following Devlin catheter exchange at [facility]. It was determined that the hematuria was more than likely the result of traumatic Devlin placement and friable bladder mucosa. Patient is scheduled to undergo cystoscopy with Dr. Villareal at the end of next month. -Devlin catheter still in place, monitor I&O's (10) Sacral pressure sore: Plan: Non-blanching sacral erythema present; however, no open wound was seen on examination. -Wound care consult placed, appreciate their input/recommendations. (11) History of DVT (deep vein thrombosis): (12) History of pulmonary embolism: (13) S/P IVC filter: Plan: Not currently on anticoagulation therapy d/t hx of radiation-induced cystitis per chart review. -Patient placed on aspirin 81mg daily and atorvastatin 40mg daily per Dr. Marti's recommendation given patient's hx. 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 Had received multiple rounds of radiation therapy for prostate cancer many years ago. -Patient follows with [facility] [Dr. Xavi Gramajo] in the outpatient setting. He is scheduled to return to the heme/onc clinic in March. (17) Chronic anemia: Plan: Patient did meet w/ Dr. Xavi Gramajo [[facility]] on 12/15/23 for f/u after his most recent hospitalization. Vit B12, folic acid, ferritin and iron panel were conducted at that time. All of those labs came back w/in normal ranges, therefore he did not require intravenous iron therapy. As per above, he is scheduled to return to the heme/onc clinic in March. -Will repeat vit B12, folate, ferritin and iron panel in the AM. -Continue HEMATOLOGY ONCOLOGY CONSULTANT ferrous sulfate, vit B12 (18) Stage 3 chronic kidney disease: Plan: Creatinine of 1.19 in the ED, appears to be at baseline. -Monitor for any acute changes in renal function throughout hospital stay. (19) Asthma: (20) COPD (chronic obstructive pulmonary disease): Plan: -Continue Trelegy, PRN albuterol inhaler -No evidence of acute exacerbation (21) Mild cognitive impairment: (22) Tremor observed on examination: Plan: Per Dr. Marti, physical examination raised concern for potential Parkinson's disease (?). Dr. Marti mentioned that the patient displayed classic cogwheel rigidity during his examination. -As per above, routine neurology consult has been placed. Will appreciate their input regarding these examination findings. -Monitor for any signs of delirium during hospital stay. -Continue memantine, donepezil and sertraline. (23) GERD (gastroesophageal reflux disease): Plan: -Continue HEMATOLOGY ONCOLOGY CONSULTANT omeprazole DVT Prophylaxis: SCDs Code Status: Full Code PCP: Deondre Hill MD Dispo: Admit to Med/Surg w/ Telemetry Patient seen in collaboration with Dr. Marti. Please see his addendum for further recommendations regarding medical management of this patient. Admission and Anticipated Discharge Date Admission Date: January 04, 2024 Subjective 01/05/2024 The patient was seen and examined in medical telemetry unit He has been very anxious and complains to have dizziness with postural hypotension which has been going on for a long time Denies any chest pain, palpitation or shortness of breath Denies any abdominal pain nausea or vomiting Remains hemodynamically stable in bed 01/06/2024 The patient was seen and examined in medical telemetry unit in the presence of the He has been stable without any significant symptoms Still has significant orthostatic hypotension with dizziness 01/07/2024 The patient was seen and examined in telemetry unit in the presence of the He remains orthostatic and symptomatic Complains to have watering from the eyes 01/08/2024 The patient was seen and examined in medical telemetry unit He has been feeling better Still complains dizziness on standing but blood pressure has not been dropping as before Denies any other symptoms 01/09/2024 The patient was seen and examined in medical telemetry unit in the presence of the He has been stable Remains dizzy with standing Review of Systems Review of Systems: All systems reviewed and are unremarkable except as noted below Physical Exam Physical Exam: Lying in bed comfortably Constitutional: + ill appearing and average body habitus Eyes: PERRL, conjunctivae normal, anicteric sclerae ENMT: external ear and nose normal, oropharynx normal Neck: trachea midline, no thyromegaly Respiratory: no respiratory distress Auscultation: lungs clear to auscultation bilaterally Cardiovascular: Rate/Rhythm: regular rate and regular rhythm; not tachycardic Heart Sounds: normal S1 and normal S2; no murmur Extremities: no edema Gastrointestinal (Abdomen): Inspection/Auscultation: normal bowel sounds; abdomen not distended Percussion/Palpation: abdomen soft; abdomen nontender Neurologic: normal touch/pain/proprioception and moves all extremities; no focal motor deficits Lymphatic: no cervical or axillary lymphadenopathy Results & Data Results & Data Vital Signs (Past 12 Hours) Vital Signs Temp Pulse Pulse Resp BP BP Pulse Ox 01/10/24 11:09 36.7 C 86 18 143/82 H 98 01/10/24 07:30 01/10/24 07:23 36.6 C 74 18 165/84 H 97 01/10/24 07:10 68 01/10/24 03:37 36.8 C 81 20 183/95 H 98 O2 Del Method 01/10/24 11:09 Room Air 01/10/24 07:30 Room Air 01/10/24 07:23 Room Air 01/10/24 07:10 01/10/24 03:37 Room Air (4) Elevated white blood cell count Leukocytosis type: unspecified Qualified Code(s): D72.829 - Elevated white blood cell count, unspecified (9) Urinary incontinence Urinary Incontinence type: unspecified incontinence Qualified Code(s): R32 - Unspecified urinary incontinence (10) Sacral pressure sore Pressure injury stage: stage 1 Qualified Code(s): L89.151 - Pressure ulcer of sacral region, stage 1 (18) Stage 3 chronic kidney disease Chronic kidney disease stage 3 subtype: unspecified whether 3a or 3b Qualified Code(s): N18.30 - Chronic kidney disease, stage 3 unspecified (19) Asthma Asthma severity: unspecified severity Asthma persistence: unspecified Asthma complication type: unspecified Qualified Code(s): J45.909 - Unspecified asthma, uncomplicated (20) COPD (chronic obstructive pulmonary disease) COPD type: unspecified COPD Qualified Code(s): J44.9 - Chronic obstructive pulmonary disease, unspecified (23) GERD (gastroesophageal reflux disease) Esophagitis presence: esophagitis presence not specified Qualified Code(s): K21.9 - Gastro-esophageal reflux disease without esophagitis
--- NOTE | 2024-01-10 14:07 | Hospitalist Progress Note ---
Date of Service January 10, 2024 Assessment & Plan (1) Episode of unresponsiveness: Plan: Likely secondary to postural hypotension Head CT performed in ED showed no acute intracranial abnormality. Of note, patient has a SEVERE allergy to contrast dye. Brain MRI performed in the ED revealed no acute intracranial abnormality. It was noted that he had scattered foci of T2 hyperintensity seen within the periventricular and subcortical white matter, which are nonspecific but according to documentation favor microvascular ischemic change. Appreciate neurology input and recommendation Will get an EEG Outpatient neurology appointment to get EMG as an outpatient No more issues with unresponsiveness Remains symptomatic from orthostatic changes No more episodes of unresponsiveness Dizziness with standing goes away after anywhere from 10 to 30 seconds Will continue with physical therapy and follow the recommendation on discharge (2) History of orthostatic hypotension: Plan: Significant history of orthostatic hypotension with recurrent admission to the hospital Unresponsive episode likely secondary to orthostatic hypotension Autonomic dysfunction and likely complicated by medications like Aricept and Namenda likely the cause of ongoing hypotension Dehydration may play a role in postural drop in blood pressure Will check orthostatic vitals every shift He has been on midodrine 2.5 mg 3 times daily Will discontinue Namenda and likely take of Aricept from the medications regimen Will give intravenous fluid and was advised to drink more fluid Monitor while in the hospital Remains orthostatic hypotensive with symptoms Continue IV fluid and was advised to drink more fluid Will hold Aricept and Namenda for now Orthostatic vitals daily-significant drop in blood pressure upon standing with symptoms Will continue with more intravenous fluid today and Florinef was added Blood pressure is maintaining reasonably with posture but remains symptomatic on standing Will continue with PT and OT evaluation Remains orthostatic Will check orthostatic vitals every shift and advised to have out of bed in the chair as long as he can tolerate (3) Ambulatory dysfunction: Plan: Branden High is 78y/o M with PMHx of adrenal insufficiency on chronic steroids, bronchial asthma/COPD, ANDRZEJ, history of DVT/PE s/p IVC filter placement (no longer anticoagulated due to bleeding issues), bladder cancer s/p surgery [ off Keytruda secondary to development of myocarditis], prostate cancer s/p radiation therapy, valvular heart disease (moderate , mild AR)/cerebrovascular disease, HTN, orthostatic hypotension, chronic anemia, mild cognitive impairment/dementia, ambulatory dysfunction, urinary incontinence, chronic venous insufficiency, CKD stage III and other problems listed below who presented to the ED via EMS for further medical evaluation following an episode of unresponsiveness w/ associated right eye drooping which has since resolved. Of note, patient was most recently hospitalized from 11/23/23 to 12/09/23 following presentation to the ED for evaluation of generalized weakness and subsequent fall. Hospital course was significant for the treatment of an acute UTI w/ 7-day course of IV ampicillin. Urine culture at that time grew Enterococcus faecalis. Patient was also found to have an VIOLETA (creatinine of 1.4) on admission, which resolved throughout the hospital stay. Head CT at that time showed no acute finding. Patient did have to receive midodrine during admission for orthostatic hypotension and was D/C on midodrine 10 mg p.o. 3 times daily. Patient was also recorded to have a stage II sacral pressure ulcer prior to that admission [wound care was on board during his hospital stay] and subsequently Devlin cath had to be placed d/t baseline urinary incontinence during the hospital course. He was d/c to [facility] and returned home on December 23. 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 may be d/t chronic steroid therapy). UA not ordered in the ED. -Will order UA to r/o any possibility of UTI. Patient is currently on 3x/weekly dosing of Bactrim for PJP prophylaxis. (5) Acute oral pain: Plan: Patient was given 2 doses of Tylenol [totaling 1300 mg] in the ED w/ relief. -CT face ordered to assess for any determinate cause of left-sided jaw pain (? may be oral abscess contributing to his pain and elevated WBC count). -Has been on Unasyn intravenously -Awaiting oromaxillary facial surgery evaluation -Appreciate oromaxillary surgery evaluation and recommendations -Continue with the pain medication (6) Adrenal insufficiency: Plan: Continue current dose of prednisone 10 mg every morning (7) Immunosuppression due to chronic steroid use: Plan: Patient currently on chronic prednisone therapy [10mg po QAM --> appears to be his baseline dosage according to prior documentation]. Per previous d/c summary, further tapering was deferred to outpatient endocrine f/u [per previous oncology recommendation to do so during last hospital stay]. Patient did NOT f/u with endocrinology prior to his arrival to the ED today. However, an appointment w/ Dr. Iglesias [[facility]] is scheduled for 01/13/24. -Continue prednisone therapy while hospitalized, may consider endocrinology consult for further guidance. -Continue Bactrim (3x/week dosing) for PJP prophylaxis while hospitalized. (8) History of hematuria: (9) Urinary incontinence: Plan: Patient did meet w/ Dr. Villareal [[facility]] on 12/14/23 for evaluation of gross hematuria following Devlin catheter exchange at [facility]. It was determined that the hematuria was more than likely the result of traumatic Devlin placement and friable bladder mucosa. Patient is scheduled to undergo cystoscopy with Dr. Villareal at the end of next month. -Devlin catheter still in place, monitor I&O's -Will change Devlin today (10) Sacral pressure sore: Plan: Non-blanching sacral erythema present; however, no open wound was seen on examination. -Wound care consult placed, appreciate their input/recommendations. (11) History of DVT (deep vein thrombosis): (12) History of pulmonary embolism: (13) S/P IVC filter: Plan: Not currently on anticoagulation therapy d/t hx of radiation-induced cystitis per chart review. -Patient placed on aspirin 81mg daily and atorvastatin 40mg daily per Dr. Marti's recommendation given patient's hx. 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 Had received multiple rounds of radiation therapy for prostate cancer many years ago. -Patient follows with [facility] [Dr. Xavi Gramajo] in the outpatient setting. He is scheduled to return to the heme/onc clinic in March. (17) Chronic anemia: Plan: Patient did meet w/ Dr. Xavi Gramajo [[facility]] on 12/15/23 for f/u after his most recent hospitalization. Vit B12, folic acid, ferritin and iron panel were conducted at that time. All of those labs came back w/in normal ranges, therefore he did not require intravenous iron therapy. As per above, he is scheduled to return to the heme/onc clinic in March. -Will repeat vit B12, folate, ferritin and iron panel in the AM. -Continue [employer] ferrous sulfate, vit B12 (18) Stage 3 chronic kidney disease: Plan: Creatinine of 1.19 in the ED, appears to be at baseline. -Monitor for any acute changes in renal function throughout hospital stay. (19) Asthma: (20) COPD (chronic obstructive pulmonary disease): Plan: -Continue Trelegy, PRN albuterol inhaler -No evidence of acute exacerbation (21) Mild cognitive impairment: (22) Tremor observed on examination: Plan: Per Dr. Marti, physical examination raised concern for potential Parkinson's disease (?). Dr. Marti mentioned that the patient displayed classic cogwheel rigidity during his examination. -As per above, routine neurology consult has been placed. Will appreciate their input regarding these examination findings. -Monitor for any signs of delirium during hospital stay. -Continue memantine, donepezil and sertraline. (23) GERD (gastroesophageal reflux disease): Plan: -Continue [employer] omeprazole DVT Prophylaxis: SCDs Code Status: Full Code PCP: Deondre Hill MD Dispo: Admit to Med/Surg w/ Telemetry Patient seen in collaboration with Dr. Marti. Please see his addendum for further recommendations regarding medical management of this patient. Admission and Anticipated Discharge Date Admission Date: January 04, 2024 Subjective 01/05/2024 The patient was seen and examined in medical telemetry unit He has been very anxious and complains to have dizziness with postural hypotension which has been going on for a long time Denies any chest pain, palpitation or shortness of breath Denies any abdominal pain nausea or vomiting Remains hemodynamically stable in bed 01/06/2024 The patient was seen and examined in medical telemetry unit in the presence of the He has been stable without any significant symptoms Still has significant orthostatic hypotension with dizziness 01/07/2024 The patient was seen and examined in telemetry unit in the presence of the He remains orthostatic and symptomatic Complains to have watering from the eyes 01/08/2024 The patient was seen and examined in medical telemetry unit He has been feeling better Still complains dizziness on standing but blood pressure has not been dropping as before Denies any other symptoms 01/09/2024 The patient was seen and examined in medical telemetry unit in the presence of the He has been stable Remains dizzy with standing 01/10/2024 The patient was seen and examined in medical telemetry unit in presence of the He is sitting on a chair without any acute distress Has orthostatic blood pressure changes and with symptoms of dizziness Denies any other significant symptoms Review of Systems Review of Systems: All systems reviewed and are unremarkable except as noted below Physical Exam Physical Exam: Lying in bed comfortably Constitutional: + ill appearing and average body habitus Eyes: PERRL, conjunctivae normal, anicteric sclerae ENMT: external ear and nose normal, oropharynx normal Neck: trachea midline, no thyromegaly Respiratory: no respiratory distress Auscultation: lungs clear to auscultation bilaterally Cardiovascular: Rate/Rhythm: regular rate and regular rhythm; not tachycardic Heart Sounds: normal S1 and normal S2; no murmur Extremities: no edema Gastrointestinal (Abdomen): Inspection/Auscultation: normal bowel sounds; abdomen not distended Percussion/Palpation: abdomen soft; abdomen nontender Musculoskeletal: No acute arthritis involving any of the joints Neurologic: normal touch/pain/proprioception and moves all extremities; no focal motor deficits Lymphatic: no cervical or axillary lymphadenopathy Results & Data Results & Data Vital Signs (Past 12 Hours) Vital Signs Temp Pulse Pulse Resp BP BP Pulse Ox 01/10/24 11:09 36.7 C 86 18 143/82 H 98 01/10/24 07:30 01/10/24 07:23 36.6 C 74 18 165/84 H 97 01/10/24 07:10 68 01/10/24 03:37 36.8 C 81 20 183/95 H 98 O2 Del Method 01/10/24 11:09 Room Air 01/10/24 07:30 Room Air 01/10/24 07:23 Room Air 01/10/24 07:10 01/10/24 03:37 Room Air Laboratory Results Short CBC 01/10/24 Range/Units 08:07 WBC 8.83 (4.8-10.8) K/ul Hgb 13.4 L (14.0-18.0) g/dl Hct 40.5 L (42.0-52.0) % Plt Count 184 (130-400) K/uL BMP 01/10/24 08:07 Sodium 139 Potassium 3.5 Chloride 105 Carbon Dioxide 27 BUN 18 Creatinine 0.98 Glucose 91 Calcium 8.5 L Medications Administered Current Inpatient Medications Acetaminophen (Acetaminophen 325 Mg Tab) 650 mg PO Q4H PRN PRN Reason: pain/fever Stop: 02/03/24 17:29 Last Admin: 01/10/24 03:22 Dose: 650 mg Al Hydrox/Mg Hydrox/Simethicone (Aluminum/Magnesium Susp 30 Ml Udc) 30 ml PO Q6H PRN PRN Reason: Dyspepsia Stop: 02/03/24 17:29 Albuterol (Albuterol Hfa 8 Gm Inhaler) 2 puffs INH Q6 PRN PRN Reason: Shortness Of Breath Or Wheezing Stop: 02/03/24 17:29 Amlodipine Besylate (Amlodipine Besylate 5 Mg Tab) 2.5 mg PO [facility] Stop: 02/04/24 03:14 Last Admin: 01/10/24 08:25 Dose: 2.5 mg Amoxicillin/Clavulanate Potassium (Amoxicillin/Clavulanate 875 Mg Tab) 1 tab PO BIDM [facility]; Protocol Stop: 01/15/24 19:59 Last Admin: 01/10/24 08:25 Dose: 1 tab Artificial Tears (Artificial Tears) 1 drops OPB QID PRN PRN Reason: Dryness Stop: 02/06/24 13:58 Last Admin: 01/10/24 13:19 Dose: 1 drops Aspirin (Aspirin 81 Mg Ectab) 81 mg PO DAILY [facility] Stop: 02/04/24 08:59 Last Admin: 01/10/24 09:43 Dose: 81 mg Atorvastatin Calcium (Atorvastatin 40 Mg Tab) 40 mg PO [facility] Stop: 02/04/24 08:59 Last Admin: 01/10/24 08:25 Dose: 40 mg Benzocaine (Benzocaine 20% (Orajel) 11.9 Gm Tube) 1 appln MT QID PRN PRN Reason: toothache Stop: 02/03/24 22:27 Last Admin: 01/10/24 13:19 Dose: 1 appln Cyanocobalamin (Cyanocobalamin (B-12) 500 Mcg Tablet) 1,000 mcg PO [facility] Stop: 02/04/24 08:59 Last Admin: 01/10/24 08:25 Dose: 1,000 mcg Donepezil HCl (Donepezil Hcl 10 Mg Tab) 10 mg PO QAM [facility] Stop: 02/04/24 08:59 Last Admin: 01/06/24 08:07 Dose: 10 mg Ferrous Sulfate (Ferrous Sulfate 325 Mg Tab) 325 mg PO QAM [facility] [place] Stop: 02/04/24 08:59 Last Admin: 01/10/24 08:25 Dose: 325 mg Fludrocortisone Acetate (Fludrocortisone Acetate 0.1 Mg Tab) 0.1 mg PO QAM [facility] Stop: 02/06/24 10:44 Last Admin: 01/10/24 08:28 Dose: 0.1 mg Fluticasone Furoate (Fluticasone Furoate 200mcg 14 Puffs/Inhaler) 1 puffs INH PM [facility] Stop: 02/03/24 20:59 Last Admin: 01/09/24 20:01 Dose: 1 puffs Fluticasone Propionate (Fluticasone Propionate Na Spr 16 Gm Btl) 2 sprays NA DAILY [facility] Stop: 02/04/24 08:59 Last Admin: 01/10/24 08:23 Dose: 2 sprays Magnesium Hydroxide (Magnesium Hydroxide Susp 30 Ml Udc) 30 ml PO Q6H PRN PRN Reason: Constipation Stop: 02/03/24 17:29 Memantine (Memantine Hcl 10 Mg Tab) 10 mg PO BIDM [facility] [place] Stop: 02/03/24 17:29 Last Admin: 01/05/24 09:21 Dose: 10 mg Midodrine (Midodrine Hcl 2.5 Mg Tab) 2.5 mg PO TIDM [facility] Stop: 02/03/24 17:44 Last Admin: 01/10/24 13:19 Dose: 2.5 mg Pantoprazole Sodium (Pantoprazole 40 Mg Tab) 40 mg PO QAM [facility] Stop: 02/04/24 08:59 Last Admin: 01/10/24 08:28 Dose: 40 mg Polyethylene Glycol (Polyethylene (Miralax) 17 Gm Pack) 17 gm PO DAILY PRN PRN Reason: Constipation Stop: 02/03/24 17:29 Prednisone (Prednisone 10 Mg Tablet) 10 mg PO QAM [facility] [place] Stop: 02/04/24 08:59 Last Admin: 01/10/24 08:29 Dose: 10 mg Senna/Docusate Sodium (Docusate Sodium/Senna 50/8.6mg Tab) 1 tab PO DAILY PRN PRN Reason: Constipation Stop: 02/03/24 17:29 Sertraline HCl (Sertraline Hcl 50 Mg Tablet) 25 mg PO QPM TAWNY Stop: 02/03/24 20:59 Last Admin: 01/09/24 20:00 Dose: 25 mg Trimethoprim/Sulfamethoxazole (Sulfamethoxazole/Trimethoprim Ds 800/160mg Tab) 1 tab PO MoWeFr TAWNY Stop: 02/04/24 08:59 Last Admin: 01/10/24 08:28 Dose: 1 tab Umeclidinium/Vilanterol (Umeclidinium/Vilanterol 62.5/25mcg 7 Puffs/Inhaler) 1 puffs INH PM TAWNY Stop: 02/03/24 20:59 Last Admin: 01/09/24 20:01 Dose: 1 puffs (4) Elevated white blood cell count Leukocytosis type: unspecified Qualified Code(s): D72.829 - Elevated white blood cell count, unspecified (9) Urinary incontinence Urinary Incontinence type: unspecified incontinence Qualified Code(s): R32 - Unspecified urinary incontinence (10) Sacral pressure sore Pressure injury stage: stage 1 Qualified Code(s): L89.151 - Pressure ulcer of sacral region, stage 1 (18) Stage 3 chronic kidney disease Chronic kidney disease stage 3 subtype: unspecified whether 3a or 3b Qualified Code(s): N18.30 - Chronic kidney disease, stage 3 unspecified (19) Asthma Asthma severity: unspecified severity Asthma persistence: unspecified Asthma complication type: unspecified Qualified Code(s): J45.909 - Unspecified asthma, uncomplicated (20) COPD (chronic obstructive pulmonary disease) COPD type: unspecified COPD Qualified Code(s): J44.9 - Chronic obstructive pulmonary disease, unspecified (23) GERD (gastroesophageal reflux disease) Esophagitis presence: esophagitis presence not specified Qualified Code(s): K21.9 - Gastro-esophageal reflux disease without esophagitis
[2024-01-10] MEDS: LIDOCAINE 2% JELLY 5 ML TUBE EXT ONE (17:06)
--- NOTE | 2024-01-11 16:25 | Hospitalist Progress Note ---
Date of Service January 11, 2024 Assessment & Plan (1) Episode of unresponsiveness: Plan: Likely secondary to postural hypotension Head CT performed in ED showed no acute intracranial abnormality. Of note, patient has a SEVERE allergy to contrast dye. Brain MRI performed in the ED revealed no acute intracranial abnormality. It was noted that he had scattered foci of T2 hyperintensity seen within the periventricular and subcortical white matter, which are nonspecific but according to documentation favor microvascular ischemic change. Appreciate neurology input and recommendation Will get an EEG Outpatient neurology appointment to get EMG as an outpatient No more issues with unresponsiveness Remains symptomatic from orthostatic changes No more episodes of unresponsiveness Dizziness with standing goes away after anywhere from 10 to 30 seconds Will continue with physical therapy and follow the recommendation on discharge No more episodes of unresponsiveness but is still feeling dizzy on standing (2) History of orthostatic hypotension: Plan: Significant history of orthostatic hypotension with recurrent admission to the hospital Unresponsive episode likely secondary to orthostatic hypotension Autonomic dysfunction and likely complicated by medications like Aricept and Namenda likely the cause of ongoing hypotension Dehydration may play a role in postural drop in blood pressure Will check orthostatic vitals every shift He has been on midodrine 2.5 mg 3 times daily Will discontinue Namenda and likely take of Aricept from the medications regimen Will give intravenous fluid and was advised to drink more fluid Monitor while in the hospital Remains orthostatic hypotensive with symptoms Continue IV fluid and was advised to drink more fluid Will hold Aricept and Namenda for now Orthostatic vitals daily-significant drop in blood pressure upon standing with symptoms Will continue with more intravenous fluid today and Florinef was added Blood pressure is maintaining reasonably with posture but remains symptomatic on standing Has significant orthostatic changes on standing with symptoms of dizziness PT was not possible due to symptoms of dizziness Will consult nephrology for any further recommendation (3) Ambulatory dysfunction: Plan: Branden High is 78y/o M with PMHx of adrenal insufficiency on chronic steroids, bronchial asthma/COPD, ANDRZEJ, history of DVT/PE s/p IVC filter placement (no longer anticoagulated due to bleeding issues), bladder cancer s/p surgery [ off Keytruda secondary to development of myocarditis], prostate cancer s/p radiation therapy, valvular heart disease (moderate , mild AR)/cerebrovascular disease, HTN, orthostatic hypotension, chronic anemia, mild cognitive impairment/dementia, ambulatory dysfunction, urinary incontinence, chronic venous insufficiency, CKD stage III and other problems listed below who presented to the ED via EMS for further medical evaluation following an episode of unresponsiveness w/ associated right eye drooping which has since resolved. Of note, patient was most recently hospitalized from 11/23/23 to 12/09/23 following presentation to the ED for evaluation of generalized weakness and subsequent fall. Hospital course was significant for the treatment of an acute UTI w/ 7-day course of IV ampicillin. Urine culture at that time grew Enterococcus faecalis. Patient was also found to have an VIOLETA (creatinine of 1.4) on admission, which resolved throughout the hospital stay. Head CT at that time showed no acute finding. Patient did have to receive midodrine during admission for orthostatic hypotension and was D/C on midodrine 10 mg p.o. 3 times daily. Patient was also recorded to have a stage II sacral pressure ulcer prior to that admission [wound care was on board during his hospital stay] and subsequently Devlin cath had to be placed d/t baseline urinary incontinence during the hospital course. He was d/c to [facility] and returned home on December 23. 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 may be d/t chronic steroid therapy). UA not ordered in the ED. -Will order UA to r/o any possibility of UTI. Patient is currently on 3x/weekly dosing of Bactrim for PJP prophylaxis. -White count has been normalized (5) Acute oral pain: Plan: Patient was given 2 doses of Tylenol [totaling 1300 mg] in the ED w/ relief. -CT face ordered to assess for any determinate cause of left-sided jaw pain (? may be oral abscess contributing to his pain and elevated WBC count). -Has been on Unasyn intravenously -Awaiting oromaxillary facial surgery evaluation -Appreciate oromaxillary surgery evaluation and recommendations -Continue with the pain medication (6) Adrenal insufficiency: Plan: Continue current dose of prednisone 10 mg every morning (7) Immunosuppression due to chronic steroid use: Plan: Patient currently on chronic prednisone therapy [10mg po QAM --> appears to be his baseline dosage according to prior documentation]. Per previous d/c summary, further tapering was deferred to outpatient endocrine f/u [per previous oncology recommendation to do so during last hospital stay]. Patient did NOT f/u with endocrinology prior to his arrival to the ED today. However, an appointment w/ Dr. Iglesias [[facility]] is scheduled for 01/13/24. -Continue prednisone therapy while hospitalized, may consider endocrinology consult for further guidance. -Continue Bactrim (3x/week dosing) for PJP prophylaxis while hospitalized. (8) History of hematuria: (9) Urinary incontinence: Plan: Patient did meet w/ Dr. Villareal [[facility]] on 12/14/23 for evaluation of gross hematuria following Devlin catheter exchange at [facility]. It was determined that the hematuria was more than likely the result of traumatic Devlin placement and friable bladder mucosa. Patient is scheduled to undergo cystoscopy with Dr. Villareal at the end of next month. -Devlin catheter still in place, monitor I&O's -Will change Devlin today (10) Sacral pressure sore: Plan: Non-blanching sacral erythema present; however, no open wound was seen on examination. -Wound care consult placed, appreciate their input/recommendations. (11) History of DVT (deep vein thrombosis): (12) History of pulmonary embolism: (13) S/P IVC filter: Plan: Not currently on anticoagulation therapy d/t hx of radiation-induced cystitis per chart review. -Patient placed on aspirin 81mg daily and atorvastatin 40mg daily per Dr. Marti's recommendation given patient's hx. 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 Had received multiple rounds of radiation therapy for prostate cancer many years ago. -Patient follows with [facility] [Dr. Xavi Gramajo] in the outpatient setting. He is scheduled to return to the heme/onc clinic in March. (17) Chronic anemia: Plan: Patient did meet w/ Dr. Xavi Gramajo [[facility]] on 12/15/23 for f/u after his most recent hospitalization. Vit B12, folic acid, ferritin and iron panel were conducted at that time. All of those labs came back w/in normal ranges, therefore he did not require intravenous iron therapy. As per above, he is scheduled to return to the heme/onc clinic in March. -Will repeat vit B12, folate, ferritin and iron panel in the AM. -Continue FLOOR ATTENDANT ferrous sulfate, vit B12 (18) Stage 3 chronic kidney disease: Plan: Creatinine of 1.19 in the ED, appears to be at baseline. -Monitor for any acute changes in renal function throughout hospital stay. (19) Asthma: (20) COPD (chronic obstructive pulmonary disease): Plan: -Continue Trelegy, PRN albuterol inhaler -No evidence of acute exacerbation (21) Mild cognitive impairment: (22) Tremor observed on examination: Plan: Per Dr. Marti, physical examination raised concern for potential Parkinson's disease (?). Dr. Marti mentioned that the patient displayed classic cogwheel rigidity during his examination. -As per above, routine neurology consult has been placed. Will appreciate their input regarding these examination findings. -Monitor for any signs of delirium during hospital stay. -Continue memantine, donepezil and sertraline. (23) GERD (gastroesophageal reflux disease): Plan: -Continue FLOOR [employer]ENDANT omeprazole DVT Prophylaxis: SCDs Code Status: Full Code PCP: Deondre Hill MD Dispo: Admit to Med/Surg w/ Telemetry Admission and Anticipated Discharge Date Admission Date: January 04, 2024 Subjective 01/05/2024 The patient was seen and examined in medical telemetry unit He has been very anxious and complains to have dizziness with postural hypotension which has been going on for a long time Denies any chest pain, palpitation or shortness of breath Denies any abdominal pain nausea or vomiting Remains hemodynamically stable in bed 01/06/2024 The patient was seen and examined in medical telemetry unit in the presence of the He has been stable without any significant symptoms Still has significant orthostatic hypotension with dizziness 01/07/2024 The patient was seen and examined in telemetry unit in the presence of the He remains orthostatic and symptomatic Complains to have watering from the eyes 01/08/2024 The patient was seen and examined in medical telemetry unit He has been feeling better Still complains dizziness on standing but blood pressure has not been dropping as before Denies any other symptoms 01/09/2024 The patient was seen and examined in medical telemetry unit in the presence of the He has been stable Remains dizzy with standing 01/10/2024 The patient was seen and examined in medical telemetry unit in presence of the He is sitting on a chair without any acute distress Has orthostatic blood pressure changes and with symptoms of dizziness Denies any other significant symptoms 01/11/2024 The patient was seen and examined in medical telemetry unit He has been stable in bed Still having significant postural drop with symptoms Physical therapy could not be done due to symptoms of postural hypotension Review of Systems Review of Systems: All systems reviewed and are unremarkable except as noted below Physical Exam Physical Exam: Lying in bed comfortably Constitutional: + ill appearing and average body habitus Eyes: PERRL, conjunctivae normal, anicteric sclerae ENMT: external ear and nose normal, oropharynx normal Neck: trachea midline, no thyromegaly Respiratory: no respiratory distress Auscultation: lungs clear to auscultation bilaterally Cardiovascular: Rate/Rhythm: regular rate and regular rhythm; not tachycardic Heart Sounds: normal S1 and normal S2; no murmur Extremities: no edema Gastrointestinal (Abdomen): Inspection/Auscultation: normal bowel sounds; abdomen not distended Percussion/Palpation: abdomen soft; abdomen nontender Musculoskeletal: No acute arthritis involving any of the joints Neurologic: normal touch/pain/proprioception and moves all extremities; no focal motor deficits Lymphatic: no cervical or axillary lymphadenopathy Results & Data Results & Data Vital Signs (Past 12 Hours) Vital Signs Temp Pulse Pulse Resp BP BP Pulse Ox 01/11/24 15:28 36.7 C 89 16 145/81 H 97 01/11/24 12:50 36.7 C 81 16 136/82 98 01/11/24 11:56 95 01/11/24 07:17 71 O2 Del Method O2 Flow Rate 01/11/24 15:28 Room Air 01/11/24 12:50 Room Air 01/11/24 11:56 0 01/11/24 07:17 Medications Administered Current Inpatient Medications Acetaminophen (Acetaminophen 325 Mg Tab) 650 mg PO Q4H PRN PRN Reason: pain/fever Stop: 02/03/24 17:29 Last Admin: 01/11/24 04:04 Dose: 650 mg Al Hydrox/Mg Hydrox/Simethicone (Aluminum/Magnesium Susp 30 Ml Udc) 30 ml PO Q6H PRN PRN Reason: Dyspepsia Stop: 02/03/24 17:29 Albuterol (Albuterol Hfa 8 Gm Inhaler) 2 puffs INH Q6 PRN PRN Reason: Shortness Of Breath Or Wheezing Stop: 02/03/24 17:29 Amlodipine Besylate (Amlodipine Besylate 5 Mg Tab) 2.5 mg PO [facility] Stop: 02/04/24 03:14 Last Admin: 01/11/24 08:36 Dose: 2.5 mg Amoxicillin/Clavulanate Potassium (Amoxicillin/Clavulanate 875 Mg Tab) 1 tab PO BIDM [facility]; Protocol Stop: 01/15/24 19:59 Last Admin: 01/11/24 08:36 Dose: 1 tab Artificial Tears (Artificial Tears) 1 drops OPB QID PRN PRN Reason: Dryness Stop: 02/06/24 13:58 Last Admin: 01/10/24 13:19 Dose: 1 drops Aspirin (Aspirin 81 Mg Ectab) 81 mg PO DAILY [facility] Stop: 02/04/24 08:59 Last Admin: 01/11/24 08:36 Dose: 81 mg Atorvastatin Calcium (Atorvastatin 40 Mg Tab) 40 mg PO [facility] Stop: 02/04/24 08:59 Last Admin: 01/11/24 08:36 Dose: 40 mg Benzocaine (Benzocaine 20% (Orajel) 11.9 Gm Tube) 1 appln MT QID PRN PRN Reason: toothache Stop: 02/03/24 22:27 Last Admin: 01/10/24 13:19 Dose: 1 appln Cyanocobalamin (Cyanocobalamin (B-12) 500 Mcg Tablet) 1,000 mcg PO [facility] Stop: 02/04/24 08:59 Last Admin: 01/11/24 08:35 Dose: 1,000 mcg Donepezil HCl (Donepezil Hcl 10 Mg Tab) 10 mg PO [facility] Stop: 02/04/24 08:59 Last Admin: 01/06/24 08:07 Dose: 10 mg Ferrous Sulfate (Ferrous Sulfate 325 Mg Tab) 325 mg PO [facility] Stop: 02/04/24 08:59 Last Admin: 01/11/24 08:35 Dose: 325 mg Fludrocortisone Acetate (Fludrocortisone Acetate 0.1 Mg Tab) 0.1 mg PO [facility] Stop: 02/06/24 10:44 Last Admin: 01/11/24 08:36 Dose: 0.1 mg Fluticasone Furoate (Fluticasone Furoate 200mcg 14 Puffs/Inhaler) 1 puffs INH PM [facility] Stop: 02/03/24 20:59 Last Admin: 01/10/24 20:07 Dose: 1 puffs Fluticasone Propionate (Fluticasone Propionate Na Spr 16 Gm Btl) 2 sprays NA DAILY [facility] Stop: 02/04/24 08:59 Last Admin: 01/11/24 08:37 Dose: 2 sprays Magnesium Hydroxide (Magnesium Hydroxide Susp 30 Ml Udc) 30 ml PO Q6H PRN PRN Reason: Constipation Stop: 02/03/24 17:29 Memantine (Memantine Hcl 10 Mg Tab) 10 mg PO BIDM [facility] Stop: 02/03/24 17:29 Last Admin: 01/05/24 09:21 Dose: 10 mg Midodrine (Midodrine Hcl 2.5 Mg Tab) 2.5 mg PO TIDM [facility] Stop: 02/03/24 17:44 Last Admin: 01/11/24 11:20 Dose: 2.5 mg Pantoprazole Sodium (Pantoprazole 40 Mg Tab) 40 mg PO QAM [facility] Stop: 02/04/24 08:59 Last Admin: 01/11/24 08:36 Dose: 40 mg Polyethylene Glycol (Polyethylene (Miralax) 17 Gm Pack) 17 gm PO DAILY PRN PRN Reason: Constipation Stop: 02/03/24 17:29 Prednisone (Prednisone 10 Mg Tablet) 10 mg PO QAM [facility] Stop: 02/04/24 08:59 Last Admin: 01/11/24 08:36 Dose: 10 mg Senna/Docusate Sodium (Docusate Sodium/Senna 50/8.6mg Tab) 1 tab PO DAILY PRN PRN Reason: Constipation Stop: 02/03/24 17:29 Sertraline HCl (Sertraline Hcl 50 Mg Tablet) 25 mg PO QPM [facility] Stop: 02/03/24 20:59 Last Admin: 01/10/24 20:06 Dose: 25 mg Trimethoprim/Sulfamethoxazole (Sulfamethoxazole/Trimethoprim Ds 800/160mg Tab) 1 tab PO MoWeFr [facility] Stop: 02/04/24 08:59 Last Admin: 01/10/24 08:28 Dose: 1 tab Umeclidinium/Vilanterol (Umeclidinium/Vilanterol 62.5/25mcg 7 Puffs/Inhaler) 1 puffs INH PM [facility] Stop: 02/03/24 20:59 Last Admin: 01/10/24 20:07 Dose: 1 puffs (4) Elevated white blood cell count Leukocytosis type: unspecified Qualified Code(s): D72.829 - Elevated white b lood cell count, unspecified (9) Urinary incontinence Urinary Incontinence type: unspecified incontinence Qualified Code(s): R32 - Unspecified urinary incontinence (10) Sacral pressure sore Pressure injury stage: stage 1 Qualified Code(s): L89.151 - Pressure ulcer of sacral region, stage 1 (18) Stage 3 chronic kidney disease Chronic kidney disease stage 3 subtype: unspecified whether 3a or 3b Qualified Code(s): N18.30 - Chronic kidney disease, stage 3 unspecified (19) Asthma Asthma complication type: unspecified Asthma persistence: unspecified Asthma severity: unspecified severity Qualified Code(s): J45.909 - Unspecified asthma, uncomplicated (20) COPD (chronic obstructive pulmonary disease) COPD type: unspecified COPD Qualified Code(s): J44.9 - Chronic obstructive pulmonary disease, unspecified (23) GERD (gastroesophageal reflux disease) Esophagitis presence: esophagitis presence not specified Qualified Code(s): K21.9 - Gastro-esophageal reflux disease without esophagitis
--- NOTE | 2024-01-12 10:12 | Nephrology Consultation ---
Date of Consultation January 12, 2024 Assessment & Plan (1) Syncope: (2) Weakness: (3) History of orthostatic hypotension: I have been consulted for further management of severe orthostatic hypotension. he has had multiple falls as well as unresponsiveness episode in the last 2 months. patient is very deconditioned and generalized way. on top of that he appears to have some degree of adrenal insufficiency as well as autonomic dysfunction causing autonomic neuropathy with orthostatic hypotension. unfortunately there is no good treatment for this. as for adrenal insufficiency I would like to change the prednisone 10 mg 2 hydrocortisone 10 twice daily to see if that makes better difference. also continue Florinef 0.1 alexy daily. recommend thigh length compression stocking. this is possible to do while is in the hospital or at a nursing home facility but I do not think it is possible to do it at home as it does require significant amount of strength. if the compression stocking is loose it does not work. increase the dose of midodrine to 5 mg 3 times daily. but more importantly he has to be very mindful of his limitation. he has to sit on the edge of the bed for many minutes before he stands up to minimize the risk of sudden blood pressure drop on standing. he must always use walker when standing and walking. continue physical therapy with being mindful of his limitation. However bedrest only makes the problem even worse by further deconditioning and muscle weakness. Plan case complexity challenging. reviewed Endocrinology note as well as Neurology note. time spent 1 hour History of Present Illness Reason for Consultation: Severe Orthostatic Hypotension Attending Physician: Matt Gongora MD History of Present Illness 78/M admitted 8 days ago this time. was in hospital in November also and I did see him for same problem that time also. He has chronic orthostatic hypotension, autonomic neuropathy as well as h/o adrenal insufficiency on chronic steroids, bronchial asthma/COPD, ANDRZEJ, history of DVT/PE s/p IVC filter placement (no longer anticoagulated due to bleeding issues), bladder cancer s/p surgery off Keytruda secondary to development of myocarditis, prostate cancer s/p radiation therapy, valvular heart disease (mo derate , mild AR), HTN, chronic anemia, cognitive impairment/dementia, ambulatory dysfunction, urinary incontinence, chronic venous insufficiency, CKD stage III presented to the ED via EMS for further medical evaluation following an episode of unresponsiveness with associated right eye drooping which has since resolved. Of note, patient was most recently hospitalized from 11/23/23 to 12/09/23 following presentation to the ED for evaluation of generalized weakness and subsequent fall. Hospital course was significant for the treatment of an acute UTI w/ 7-day course of IV ampicillin. Urine culture at that time grew Enterococcus faecalis. Patient was also found to have an VIOLETA (creatinine of 1.4) on admission, which resolved throughout the hospital stay. Head CT at that time showed no acute f inding. Patient did receive midodrine during admission for orthostatic hypotension and was d/c on midodrine 10 mg p.o. 3 times daily.He was d/c to [facility] and returned home on December 23. He has Sacral ulcer also and has had tatum for many weeks now. Since admission has been seen by neurology and no clear Cause identified. Also being seen by maxillofacial surgeon for Dental issues. Oral intake is poor. BP is high Supine and drops standing. currently On Midodrine 2.5 tid + florinef 0.1 daily and on Prednisone 10. as per the RN taking care of him his blood pressure was extremely low earlier today on standing with readings of 60s systolic. ROS---Detailed in HPI. 12 systems otherwise negative physical examination elderly white male who is awake alert oriented x3. He seems to have trouble remembering recent health events. However normal speech and no respiratory distress. normal affect and mood blood pressure does drop a lot on standing. Most recent vitals documented blood pressure 101 x 67 pulse rate 86 temperature 36.6 , 99% on room air mucous membrane is moist neck is supple no JVD chest bilateral clear to auscultation CVS S1 and S2 regular soft systolic murmur heard abdomen is soft nontender no costovertebral angle tenderness noted extremities shows no edema he does have bilateral Luis Enrique stockings. skin did not show any obvious rash Allergies Allergy/AdvReac Type Severity Reaction Status Date / Time Iodinated Contrast Media Allergy Severe LOVERSOL---CARDIAC Verified 01/04/24 15:[address] CONTRAST clindamycin Allergy Intermediate Rash Verified 01/04/24 15:42 chocolate flavor AdvReac Severe DIARRHEA/ Verified 01/04/24 15:42 Cannot take, interacts w/ medications. cranberry AdvReac Severe Cannot Verified 01/04/24 15:42 take, interacts w/ medications. pembrolizumab [From [employer]] AdvReac Intermediate myocarditis Verified 01/04/24 15:42 Home Medications Medication Instructions Recorded Confirmed Type donepezil 10 mg tablet 10 mg PO QAM 04/13/22 01/04/24 History ascorbic acid (vitamin C) 1,000 mg 1,000 mg PO QAM 08/27/22 01/04/24 History tablet (Vitamin C) epinephrine 0.3 mg/0.3 mL 0.3 mg IM DIRECTED PRN 11/30/22 01/04/24 History injection, auto-injector anaphylaxis fluticasone fur. 200 mcg-umeclid 1 inh inhalation QPM 12/12/22 01/04/24 History 62.5 mcg-vilant 25 mcg inhalat.powder (Trelegy Ellipta) fluticasone propionate 50 2 spray intranasal DAILY 12/12/22 01/04/24 History mcg/actuation nasal spray,suspension ferrous sulfate 325 mg (65 mg 325 mg PO QAM 04/07/23 01/04/24 History iron) tablet,delayed release acetaminophen 325 mg tablet 650 mg PO Q4H PRN PAIN/FEVER 10/09/23 01/04/24 History (Tylenol) multivitamin with minerals-folic 1 tab PO QAM 10/09/23 01/04/24 History acid 200 mcg chewable tablet (Multivitamin Gummies) omeprazole 20 mg capsule,delayed 20 mg PO QAM 10/09/23 01/04/24 History release sennosides 8.6 mg-docusate sodium 1 tab-cap PO DAILY PRN Constipation 10/09/23 01/04/24 History 50 mg tablet (Senna Plus) albuterol sulfate 90 mcg/actuation 2 puff inhalation Q6 PRN Shortness 11/23/23 01/04/24 History aerosol inhaler Of Breath Or Wheezing cholecalciferol (vitamin D3) 125 125 mcg PO QAM 11/23/23 01/04/24 History mcg (5,000 unit) tablet memantine 10 mg tablet 10 mg PO BIDM 11/23/23 01/04/24 History cyanocobalamin (vitamin B-12) 1,000 mcg PO QAM 01/04/24 01/04/24 History 1,000 mcg tablet (Vitamin B-12) midodrine 2.5 mg tablet 2.5 mg PO TID 01/04/24 01/04/24 History prednisone 10 mg tablet 10 mg PO QAM 01/04/24 01/04/24 History sertraline 25 mg tablet 25 mg PO QPM 01/04/24 01/04/24 History sulfamethoxazole 800 1 tab PO 3XWK 01/04/24 01/04/24 History mg-trimethoprim 160 mg tablet vitamin E 400 unit tablet 45 mg PO QAM 01/04/24 01/04/24 History Patient History Medical History History of recent blood transfusion Radiation cystitis Kidney stones x1 episode. no surgery needed. 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 Benign prostatic hyperplasia Contrast media allergy Hiatal hernia Surgical History S/P cataract extraction History of right cataract extraction History of colonoscopy H/O sinus surgery History of appendectomy S/P TURP (status post transurethral resection of prostate) Status post cystoscopy (11/07/13) Family History Father Prostate cancer Brother Prostate cancer Mother Thyroid cancer Cancer Other No family history of adverse response to anesthesia Social History Smoking Status: Never smoker Tobacco Type: Cigarettes Second Hand Exposure: No; Do You Dip or Chew Tobacco: No; Hx Alcohol Use: Yes Alcohol type: beer Alcohol Intake Frequency: Monthly or Less Hx Substance Use: No Preferred Language: Cape Verdean Communication Ability: Effective Visual Impairment: Limited Hearing Ability: Normal Animal Herder Required: No Beliefs That Will Affect Care: None marital status: Current Living Situation: Spouse Current Living Situation Comment: at home with current occupational status: retired How many Children do You have: 0 Feels Safe at Home: Yes Safety Concerns: Feels Safe At This Time Diet: regular during the past year weight has: decreased > 10 lbs Seatbelt Use: always Do you think of yourself as: straight/heterosexual Gender Identity: Male Assistive Devices: Bedside Commode, Hospital Bed and Walker Results & Data Vital Signs (Past 12 Hours) Vital Signs Temp Pulse Pulse Resp BP Pulse Ox O2 Del Method 01/12/24 07:55 36.8 C 71 18 145/84 H 97 Room Air 01/12/24 07:32 78 01/12/24 03:26 36.7 C 75 18 135/77 97 Room Air 01/11/24 23:19 74 01/11/24 22:36 36.8 C 77 16 135/76 97 Room Air Laboratory Results reviewed in detail Diagnostic Findings reviewed in detail (1) Syncope Syncope type: unspecified Qualified Code(s): R55 - Syncope and collapse
[2024-01-12] MEDS: HYDROCORTISONE 10 MG TAB PO SCH (12:07)
[2024-01-12] MEDS: MIDODRINE HCL 2.5 MG TAB PO SCH (12:07)
[2024-01-12] MEDS: MAGNESIUM CHLORIDE W/CALCIUM 64MG DELAYED REL TAB PO SCH (12:07)
--- NOTE | 2024-01-12 18:36 | Hospitalist Progress Note ---
Date of Service January 12, 2024 Assessment & Plan (1) Episode of unresponsiveness: Plan: Syncope Likely secondary to orthostatic hypotension --MRI Brain:No acute intracranial abnormality. Scattered foci of T2 hyperintensity seen within the periventricular and subcortical white matter are nonspecific but favor microvascular ischemic change. --EEG:This is an abnormal awake and drowsy routine EEG due to [id number] generalized background slowing suggestive of a nonspecific encephalopathy. No epileptiform activity is seen. Appreciate neurology input and recommendation --Outpatient neurology appointment to get EMG as outpatient -- Continue compression stockings No rhythm issues while hospitalized Prednisone changed to hydrocortisone as recommended by nephrology Also continue Reina Midodrine dose increased to 5 mg 3 times daily PT OT as able Multiple falls Very deconditioned Generalized weakness PT OT as able Fall precautions (2) History of orthostatic hypotension: Plan: Management as above Received IV fluids --Hold Aricept and Namenda for now (3) Ambulatory dysfunction: Plan: As per prior provider: Branden High is 78y/o M with PMHx of adrenal insufficiency on chronic steroids, bronchial asthma/COPD, ANDRZEJ, history of DVT/PE s/p IVC filter placement (no longer anticoagulated due to bleeding issues), bladder cancer s/p surgery [ off Keytruda secondary to development of myocarditis], prostate cancer s/p radiation therapy, valvular heart disease (moderate , mild AR)/cerebrovascular disease, HTN, orthostatic hypotension, chronic anemia, mild cognitive impairment/dementia, ambulatory dysfunction, urinary incontinence, chronic venous insufficiency, CKD stage III and other problems listed below who presented to the ED via EMS for further medical evaluation following an episode of unresponsiveness w/ associated right eye drooping which has since resolved. Of note, patient was most recently hospitalized from 11/23/23 to 12/09/23 following presentation to the ED for evaluation of generalized weakness and subsequent fall. Hospital course was significant for the treatment of an acute UTI w/ 7-day course of IV ampicillin. Urine culture at that time grew Enterococcus faecalis. Patient was also found to have an VIOLETA (creatinine of 1.4) on admission, which resolved throughout the hospital stay. Head CT at that time showed no acute finding. Patient did have to receive midodrine during admission for orthostatic hypotension and was D/C on midodrine 10 mg p.o. 3 times daily. Patient was also recorded to have a stage II sacral pressure ulcer prior to that admission [wound care was on board during his hospital stay] and subsequently Devlin cath had to be placed d/t baseline urinary incontinence during the hospital course. He was d/c to [facility] and returned home on December 23. 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 Hypomagnesemia Replete electrolytes as needed (5) Acute oral pain: Plan: Patient was given 2 doses of Tylenol [totaling 1300 mg] in the ED w/ relief. -CT face ordered to assess for any determinate cause of left-sided jaw pain (? may be oral abscess contributing to his pain and elevated WBC count). -Has been on Unasyn intravenously>> transition to Augmentin -Appreciate oromaxillary facial surgery Input --Needs follow-up with surgery on discharge (6) Adrenal insufficiency: Plan: Prednisone changed to Cortef 10 mg twice daily Will benefit from following with endocrinology on discharge (7) Immunosuppression due to chronic steroid use: Plan: Patient currently on chronic prednisone therapy [10mg po QAM --> appears to be his baseline dosage according to prior documentation]. Per previous d/c summary, further tapering was deferred to outpatient endocrine f/u [per previous oncology recommendation to do so during last hospital stay]. Patient did NOT f/u with endocrinology prior to his arrival to the ED today. However, an appointment w/ Dr. Iglesias [[facility]] is scheduled for 01/13/24. -Continue Bactrim (3x/week dosing) for PJP prophylaxis while hospitalized. -Prednisone changed to Cortef as above (8) History of hematuria: (9) Urinary incontinence: Plan: Patient did meet w/ Dr. Villareal [[facility]] on 12/14/23 for evaluation of gross hematuria following Devlin catheter exchange at [facility]. It was determined that the hematuria was more than likely the result of traumatic Devlin placement and friable bladder mucosa. Patient is scheduled to undergo cystoscopy with Dr. Villareal at the end of next month. -Devlin catheter still in place, monitor I&O's (10) Sacral pressure sore: Plan: Non-blanching sacral erythema present; however, no open wound was seen on examination. -Wound care consult placed, appreciate their input/recommendations. 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 -Patient placed on aspirin 81mg daily and atorvastatin 40mg daily per Dr. Marti's recommendation given patient's hx. 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 Had received multiple rounds of radiation therapy for prostate cancer many years ago. -Patient follows with [facility] [Dr. Xavi Gramajo] in the outpatient setting. He is scheduled to return to the heme/onc clinic in March. (17) Chronic anemia: Plan: Patient did meet w/ Dr. Xavi Gramajo [[facility]] on 12/15/23 for f/u after his most recent hospitalization. Vit B12, folic acid, ferritin and iron panel were conducted at that time. All of those labs came back w/in normal ranges, therefore he did not require intravenous iron therapy. As per above, he is scheduled to return to the heme/onc clinic in March. -Continue [employer] ferrous sulfate, vit B12 (18) Stage 3 chronic kidney disease: Plan: Creatinine at baseline -Monitor (19) Asthma: (20) COPD (chronic obstructive pulmonary disease): Plan: -Continue Trelegy, PRN albuterol inhaler -No evidence of acute exacerbation (21) Mild cognitive impairment: (22) Tremor observed on examination: Plan: -Monitor for any signs of delirium during hospital stay. Will need follow-up with neurology on discharge (23) GERD (gastroesophageal reflux disease): Plan: -Continue PPI DVT Px SCDs Code Status: Full Code Disposition PT OT prior to discharge Admission and Anticipated Discharge Date Admission Date: January 04, 2024 Subjective Patient is seen and examined at bedside Shortness of breath much improved per patient Reports generalized weakness Also reports intermittent dizziness with positional change Denies any chest pain, nausea, vomiting, abdominal pain No other complaints Review of Systems Review of Systems: All systems reviewed & are unremarkable except as noted in Subjective Physical Exam Physical Exam: Physical Exam: Vitals signs as noted above General Appearance:Moderately built and nourished, no apparent distress, chronic ill-appearing Head: normocephalic, Atraumatic Eyes: normal inspection, EOMI Neck: supple, Trachea midline Respiratory/Chest: Normal breath sounds, CTA, No accessory muscle use Cardiovascular: S1, S2, No murmur Abdomen/GI:Soft, Non tender, Bowel sounds present Extremities/Musculoskeletal:normal inspection, 1+ edema Neurologic/Psych:AAOX3, grossly no focal neurological deficits Skin: normal color, warm Results & Data Results & Data Vital Signs (Past 12 Hours) Vital Signs Temp Pulse Pulse Resp BP BP Pulse Ox 01/12/24 16:30 36.9 C 83 18 123/69 96 01/12/24 11:47 36.6 C 86 17 101/67 99 01/12/24 07:55 36.8 C 71 18 145/84 H 97 01/12/24 07:32 78 O2 Del Method 01/12/24 16:30 Room Air 01/12/24 11:47 Room Air 01/12/24 07:55 Room Air 01/12/24 07:32 (4) Elevated white blood cell count Leukocytosis type: unspecified Qualified Code(s): D72.829 - Elevated white blood cell count, unspecified (9) Urinary incontinence Urinary Incontinence type: unspecified incontinence Qualified Code(s): R32 - Unspecified urinary incontinence (10) Sacral pressure sore Pressure injury stage: stage 1 Qualified Code(s): L89.151 - Pressure ulcer of sacral region, stage 1 (18) Stage 3 chronic kidney disease Chronic kidney disease stage 3 subtype: unspecified whether 3a or 3b Qualified Code(s): N18.30 - Chronic kidney disease, stage 3 unspecified (19) Asthma Asthma severity: unspecified severity Asthma persistence: unspecified Asthma complication type: unspecified Qualified Code(s): J45.909 - Unspecified asthma, uncomplicated (20) COPD (chronic obstructive pulmonary disease) COPD type: unspecified COPD Qualified Code(s): J44.9 - Chronic obstructive pulmonary disease, unspecified (23) GERD (gastroesophageal reflux disease) Esophagitis presence: esophagitis presence not specified Qualified Code(s): K21.9 - Gastro-esophageal reflux disease without esophagitis
[2024-01-13 07:33] LABS: Hematocrit (blood only) 37.4 % (42.0-52.0); Hemoglobin 12.5 g/dl (14.0-18.0); Mean Corpuscular Hemoglobin 30.9 pg (25.0-34.0); Mean Corpuscular Hgb Conc 33.4 g/dL (32.0-36.0); Mean Corpuscular Volume 92.3 fL (80.0-100.0); Mean Platelet Volume 8.8 fL (9.4-12.4); Platelet Count 177 K/uL (130-400); RDW Coefficient of Variation 14.4 % (11.5-14.5); RDW Standard Deviation 48.9 fL (36.4-46.3); Red Blood Count 4.05 M/uL (4.70-6.10); White Blood Count 10.48 K/ul (4.8-10.8)
[2024-01-13 07:39] LABS: Calcium 8.3 mg/dl (8.6-10.3); Creatinine Clr Calc Pharmacy 75.7 ml/min; Est GFR (African American) 89.1 ml/min; Est GFR (Non-African American) 76.9 ml/min; Magnesium 1.7 mg/dl (1.7-2.4); Potassium 3.6 mmol/L (3.5-5.1)
--- NOTE | 2024-01-13 17:54 | Hospitalist Progress Note ---
Date of Service January 13, 2024 Assessment & Plan (1) Episode of unresponsiveness: Plan: Syncope Likely secondary to orthostatic hypotension --MRI Brain:No acute intracranial abnormality. Scattered foci of T2 hyperintensity seen within the periventricular and subcortical white matter are nonspecific but favor microvascular ischemic change. --EEG:This is an abnormal awake and drowsy routine EEG due to [id number] generalized background slowing suggestive of a nonspecific encephalopathy. No epileptiform activity is seen. Appreciate neurology input and recommendation --Outpatient neurology appointment to get EMG as outpatient -- Continue compression stockings No rhythm issues while hospitalized Prednisone changed to hydrocortisone as recommended by nephrology Also continue Meetainef Midodrine dose increased to 5 mg 3 times daily Continue PT OT Less dizziness today Blood pressure variable Will need SNF placement as able Multiple falls Very deconditioned Generalized weakness Fall precautions Continue PT/OT (2) History of orthostatic hypotension: Plan: Management as above Received IV fluids --Hold Aricept and Namenda for now (3) Ambulatory dysfunction: Plan: As per prior provider: Branden High is 78y/o M with PMHx of adrenal insufficiency on chronic steroids, bronchial asthma/COPD, ANDRZEJ, history of DVT/PE s/p IVC filter placement (no longer anticoagulated due to bleeding issues), bladder cancer s/p surgery [ off Keytruda secondary to development of myocarditis], prostate cancer s/p radiation therapy, valvular heart disease (moderate , mild AR)/cerebrovascular disease, HTN, orthostatic hypotension, chronic anemia, mild cognitive impairment/dementia, ambulatory dysfunction, urinary incontinence, chronic venous insufficiency, CKD stage III and other problems listed below who presented to the ED via EMS for further medical evaluation following an episode of unresponsiveness w/ associated right eye drooping which has since resolved. Of note, patient was most recently hospitalized from 11/23/23 to 12/09/23 following presentation to the ED for evaluation of generalized weakness and subsequent fall. Hospital course was significant for the treatment of an acute UTI w/ 7-day course of IV ampicillin. Urine culture at that time grew Enterococcus faecalis. Patient was also found to have an VIOLETA (creatinine of 1.4) on admission, which resolved throughout the hospital stay. Head CT at that time showed no acute finding. Patient did have to receive midodrine during admission for orthostatic hypotension and was D/C on midodrine 10 mg p.o. 3 times daily. Patient was also recorded to have a stage II sacral pressure ulcer prior to that admission [wound care was on board during his hospital stay] and subsequently Devlin cath had to be placed d/t baseline urinary incontinence during the hospital course. He was d/c to [facility] and returned home on December 23. 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 Hypomagnesemia Replete electrolytes as needed (5) Acute oral pain: Plan: Patient was given 2 doses of Tylenol [totaling 1300 mg] in the ED w/ relief. -CT face ordered to assess for any determinate cause of left-sided jaw pain (? may be oral abscess contributing to his pain and elevated WBC count). -Has been on Unasyn intravenously>> transition to Augmentin -Appreciate oromaxillary facial surgery Input --Needs follow-up with surgery on discharge (6) Adrenal insufficiency: Plan: Prednisone changed to Cortef 10 mg twice daily Will benefit from following with endocrinology on discharge (7) Immunosuppression due to chronic steroid use: Plan: Patient currently on chronic prednisone therapy [10mg po QAM --> appears to be his baseline dosage according to prior documentation]. Per previous d/c summary, further tapering was deferred to outpatient endocrine f/u [per previous oncology recommendation to do so during last hospital stay]. Patient did NOT f/u with endocrinology prior to his arrival to the ED today. However, an appointment w/ Dr. Iglesias [[facility]] is scheduled for 01/13/24. -Continue Bactrim (3x/week dosing) for PJP prophylaxis while hospitalized. -Prednisone changed to Cortef as above (8) History of hematuria: (9) Urinary incontinence: Plan: Patient did meet w/ Dr. Villareal [[facility]] on 12/14/23 for evaluation of gross hematuria following Devlin catheter exchange at [facility]. It was determined that the hematuria was more than likely the result of traumatic Devlin placement and friable bladder mucosa. Patient is scheduled to undergo cystoscopy with Dr. Villareal at the end of next month. -Devlin catheter still in place, monitor I&O's (10) Sacral pressure sore: Plan: Non-blanching sacral erythema present; however, no open wound was seen on examination. -Wound care consult placed, appreciate their input/recommendations. 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 -Patient placed on aspirin 81mg daily and atorvastatin 40mg daily per Dr. Milton cr's recommendation given patient's hx. 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 Had received multiple rounds of radiation therapy for prostate cancer many years ago. -Patient follows with [facility] [Dr. Xavi Gramajo] in the outpatient setting. He is scheduled to return to the heme/onc clinic in March. (17) Chronic anemia: Plan: Patient did meet w/ Dr. Xavi Gramajo [[facility]] on 12/15/23 for f/u after his most recent hospitalization. Vit B12, folic acid, ferritin and iron panel were conducted at that time. All of those labs came back w/in normal ranges, therefore he did not require intravenous iron therapy. As per above, he is scheduled to return to the heme/onc clinic in March. -Continue [employer] ferrous sulfate, vit B12 (18) Stage 3 chronic kidney disease: Plan: Creatinine at baseline -Monitor (19) Asthma: (20) COPD (chronic obstructive pulmonary disease): Plan: -Continue Trelegy, PRN albuterol inhaler -No evidence of acute exacerbation (21) Mild cognitive impairment: (22) Tremor observed on examination: Plan: -Monitor for any signs of delirium during hospital stay. Will need follow-up with neurology on discharge (23) GERD (gastroesophageal reflux disease): Plan: -Continue PPI DVT Px SCDs Code Status: Full Code Disposition Case management to help with discharge planning Admission and Anticipated Discharge Date Admission Date: January 04, 2024 Subjective Patient is seen and examined at bedside Less dizziness today No new complaints Discussed with patient's family at bedside Had PT evaluation earlier today Dyspnea continues to improve Denies any chest pain, nausea, vomiting, abdominal pain Review of Systems Review of Systems: All systems reviewed & are unremarkable except as noted in Subjective Physical Exam Physical Exam: Physical Exam: Vitals signs as noted above General Appearance:Moderately built and nourished, no apparent distress, chronic ill-appearing Head: normocephalic, Atraumatic Eyes: normal inspection, EOMI Neck: supple, Trachea midline Respiratory/Chest: Normal breath sounds, CTA, No accessory muscle use Cardiovascular: S1, S2, No murmur Abdomen/GI:Soft, Non tender, Bowel sounds present Extremities/Musculoskeletal:normal inspection, 1+ edema Neurologic/Psych:AAOX3, grossly no focal neurological deficits Skin: normal color, warm Results & Data Results & Data Vital Signs (Past 12 Hours) Vital Signs Temp Pulse Pulse Resp BP BP Pulse Ox 01/13/24 15:58 36.7 C 74 18 171/91 H 100 01/13/24 15:03 76 01/13/24 11:42 36.4 C L 79 18 141/88 H 99 01/13/24 07:58 36.6 C 69 18 160/85 H 99 01/13/24 07:16 66 O2 Del Method 01/13/24 15:58 Room Air 01/13/24 15:03 01/13/24 11:42 Room Air 01/13/24 07:58 Room Air 01/13/24 07:16 Laboratory Results Short CBC 01/13/24 Range/Units 06:52 WBC 10.48 (4.8-10.8) K/ul Hgb 12.5 L (14.0-18.0) g/dl Hct 37.4 L (42.0-52.0) % Plt Count 177 (130-400) K/uL BMP 01/13/24 06:52 Sodium 137 Potassium 3.6 Chloride 106 Carbon Dioxide 25 BUN 19 Creatinine 0.95 Glucose 97 Calcium 8.3 L (4) Elevated white blood cell count Leukocytosis type: unspecified Qualified Code(s): D72.829 - Elevated white blood cell count, unspecified (9) Urinary incontinence Urinary Incontinence type: unspecified incontinence Qualified Code(s): R32 - Unspecified urinary incontinence (10) Sacral pressure sore Pressure injury stage: stage 1 Qualified Code(s): L89.151 - Pressure ulcer of sacral region, stage 1 (18) Stage 3 chronic kidney disease Chronic kidney disease stage 3 subtype: unspecified whether 3a or 3b Qualified Code(s): N18.30 - Chronic kidney disease, stage 3 unspecified (19) Asthma Asthma severity: unspecified severity Asthma persistence: unspecified Asthma complication type: unspecified Qualified Code(s): J45.909 - Unspecified asthma, uncomplicated (20) COPD (chronic obstructive pulmonary disease) COPD type: unspecified COPD Qualified Code(s): J44.9 - Chronic obstructive pulmonary disease, unspecified (23) GERD (gastroesophageal reflux disease) Esophagitis presence: esophagitis presence not specified Qualified Code(s): K21.9 - Gastro-esophageal reflux disease without esophagitis
[2024-01-14 07:05] LABS: Calcium 8.5 mg/dl (8.6-10.3); Creatinine Clr Calc Pharmacy 71.9 ml/min; Est GFR (African American) 83.8 ml/min; Est GFR (Non-African American) 72.3 ml/min; Magnesium 1.7 mg/dl (1.7-2.4); Potassium 3.8 mmol/L (3.5-5.1)
--- NOTE | 2024-01-14 10:06 | Nephrology Progress Note ---
Date of Service January 14, 2024 Assessment & Plan Admission and Anticipated Discharge Date Admission Date: January 04, 2024 Subjective Assessment & Plan (1) Syncope: (2) Weakness: (3) History of orthostatic hypotension: He has had multiple falls as well as unresponsiveness episode in the last 2 months. patient is very deconditioned in generalized way. on top of that he appears to have some degree of adrenal insufficiency as well as autonomic dysfunction causing autonomic neuropathy with orthostatic hypotension. unfortunately there is no good treatment for this. as for adrenal insufficiency continue hydrocortisone 10 twice daily to see if that makes better difference. also continue Florinef 0.1 alexy daily. recommend thigh length compression stocking. this is possible to do while is in the hospital or at a [place] [facility] facility but I do not think it is possible to do it at home as it does require significant amount of strength. if the compression stocking is loose it does not work. Continue midodrine to 5 mg 3 times daily. but more importantly he has to be very mindful of his limitation. he has to sit on the edge of the bed for many minutes before he stands up to minimize the risk of sudden blood pressure drop on standing. he must always use walker when standing and walking. continue physical therapy with being mindful of his limitation. However bedrest only makes the problem even worse by further deconditioning and muscle weakness. Also do not treat Supine HTN. BP therapy has to be directed 100% by Standing BP and standing BP only !!! At this point will sign off. Call if any questions. S---BP is still erratic with Sig major drop in Standing BP. Labs are fine though physical examination elderly white male who is awake alert oriented x3. He seems to have trouble remembering recent health events. However normal speech and no respiratory distress. normal affect and mood blood pressure does drop a lot on standing. Most recent vitals documented blood pressure 101 x 67 pulse rate 86 temperature 36.6 , 99% on room air mucous membrane is moist neck is supple no JVD chest bilateral clear to auscultation CVS S1 and S2 regular soft systolic murmur heard abdomen is soft nontender no costovertebral angle tenderness noted extremities shows no edema he does have bilateral Luis Enrique stockings. skin did not show any obvious rash Results & Data Vital Signs (Past 12 Hours) Vital Signs Temp Pulse Pulse Resp BP BP Pulse Ox 01/14/24 07:47 36.6 C 68 20 159/83 H 98 01/14/24 07:23 72 01/14/24 03:40 36.3 C L 60 16 148/79 H 97 01/14/24 00:42 36.8 C 74 16 146/78 H 98 01/13/24 23:29 O2 Del Method 01/14/24 07:47 Room Air 01/14/24 07:23 01/14/24 03:40 Room Air 01/14/24 00:42 Room Air 01/13/24 23:29 Room Air
[2024-01-14] MEDS ORDERED: MIDODRINE HCL 2.5 MG TAB PO SCH (12:00)
[2024-01-14] MEDS: MIDODRINE HCL 2.5 MG TAB PO SCH (13:32)
--- NOTE | 2024-01-14 18:32 | Hospitalist Progress Note ---
Date of Service January 14, 2024 Assessment & Plan (1) Episode of unresponsiveness: Plan: Syncope Likely secondary to orthostatic hypotension --MRI Brain:No acute intracranial abnormality. Scattered foci of T2 hyperintensity seen within the periventricular and subcortical white matter are nonspecific but favor microvascular ischemic change. --EEG:This is an abnormal awake and drowsy routine EEG due to [id number] generalized background slowing suggestive of a nonspecific encephalopathy. No epileptiform activity is seen. Appreciate neurology input and recommendation --Outpatient neurology appointment to get EMG as outpatient -- Continue compression stockings No rhythm issues while hospitalized Prednisone changed to hydrocortisone as recommended by nephrology Also continue Florinef Continue Midodrine increased to 5 mg 3 times daily Continue PT OT Waiting for rehab placement Do not treat high blood pressure while supine per nephrology Continue current management Multiple falls Very deconditioned Generalized weakness Fall precautions Continue PT/OT (2) History of orthostatic hypotension: Plan: Management as above Received IV fluids --Hold Aricept and Namenda for now (3) Ambulatory dysfunction: Plan: As per prior provider: Branden High is 78y/o M with PMHx of adrenal insufficiency on chronic steroids, bronchial asthma/COPD, ANDRZEJ, history of DVT/PE s/p IVC filter placement (no longer anticoagulated due to bleeding issues), bladder cancer s/p surgery [ off Keytruda secondary to development of myocarditis], prostate cancer s/p radiation therapy, valvular heart disease (moderate , mild AR)/cerebrovascular disease, HTN, orthostatic hypotension, chronic anemia, mild cognitive impairment/dementia, ambulatory dysfunction, urinary incontinence, chronic venous insufficiency, CKD stage III and other problems listed below who presented to the ED via EMS for further medical evaluation following an episode of unresponsiveness w/ associated right eye drooping which has since resolved. Of note, patient was most recently hospitalized from 11/23/23 to 12/09/23 following presentation to the ED for evaluation of generalized weakness and subsequent fall. Hospital course was significant for the treatment of an acute UTI w/ 7-day course of IV ampicillin. Urine culture at that time grew Enterococcus faecalis. Patient was also found to have an VIOLETA (creatinine of 1.4) on admission, which resolved throughout the hospital stay. Head CT at that time showed no acute finding. Patient did have to receive midodrine during admission for orthostatic hypotension and was D/C on midodrine 10 mg p.o. 3 times daily. Patient was also recorded to have a stage II sacral pressure ulcer prior to that admission [wound care was on board during his hospital stay] and subsequently Devlin cath had to be placed d/t baseline urinary incontinence during the hospital course. He was d/c to [facility] and returned home on December 23. 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 Hypomagnesemia Replete electrolytes as needed (5) Acute oral pain: Plan: Patient was given 2 doses of Tylenol [totaling 1300 mg] in the ED w/ relief. -CT face ordered to assess for any determinate cause of left-sided jaw pain (? may be oral abscess contributing to his pain and elevated WBC count). -Has been on Unasyn intravenously>> transition to Augmentin -Appreciate oromaxillary facial surgery Input --Needs follow-up with surgery on discharge (6) Adrenal insufficiency: Plan: Prednisone changed to Cortef 10 mg twice daily Will benefit from following with endocrinology on discharge (7) Immunosuppression due to chronic steroid use: Plan: Patient currently on chronic prednisone therapy [10mg po QAM --> appears to be his baseline dosage according to prior documentation]. Per previous d/c summary, further tapering was deferred to outpatient endocrine f/u [per previous oncology recommendation to do so during last hospital stay]. Patient did NOT f/u with endocrinology prior to his arrival to the ED today. However, an appointment w/ Dr. Iglesias [[facility]] is scheduled for 01/13/24. -Continue Bactrim (3x/week dosing) for PJP prophylaxis while hospitalized. -Prednisone changed to Cortef as above (8) History of hematuria: (9) Urinary incontinence: Plan: Patient did meet w/ Dr. Villareal [[facility]] on 12/14/23 for evaluation of gross hematuria following Devlin catheter exchange at [facility]. It was determined that the hematuria was more than likely the result of traumatic Devlin placement and friable bladder mucosa. Patient is scheduled to undergo cystoscopy with Dr. Villareal at the end of next month. -Devlin catheter still in place, monitor I&O's (10) Sacral pressure sore: Plan: Non-blanching sacral erythema present; however, no open wound was seen on examination. -Wound care consult placed, appreciate their input/recommendations. 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 -Patient placed on aspirin 81mg daily and atorvastatin 40mg daily per Dr. Marti's recommendation given patient's hx. 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 Had received multiple rounds of radiation therapy for prostate cancer many years ago. -Patient follows with [facility] [Dr. Xavi Gramajo] in the outpatient setting. He is scheduled to return to the heme/onc clinic in March. (17) Chronic anemia: Plan: Patient did meet w/ Dr. Xavi Gramajo [[facility]] on 12/15/23 for f/u after his most recent hospitalization. Vit B12, folic acid, ferritin and iron panel were conducted at that time. All of those labs came back w/in normal ranges, therefore he did not require intravenous iron therapy. As per above, he is scheduled to return to the heme/onc clinic in March. -Continue [employer] ferrous sulfate, vit B12 (18) Stage 3 chronic kidney disease: Plan: Creatinine at baseline -Monitor (19) Asthma: (20) COPD (chronic obstructive pulmonary disease): Plan: -Continue Trelegy, PRN albuterol inhaler -No evidence of acute exacerbation (21) Mild cognitive impairment: (22) Tremor observed on examination: Plan: -Monitor for any signs of delirium during hospital stay. Will need follow-up with neurology on discharge (23) GERD (gastroesophageal reflux disease): Plan: -Continue PPI DVT Px SCDs Code Status: Full Code Disposition Plan to discharge to rehab facility when accepted Admission and Anticipated Discharge Date Admission Date: January 04, 2024 Subjective Patient is seen and examined at bedside Dizziness continues to improve Discussed with cardiology today Patient offers no new complaints Denies any chest pain, nausea, vomiting, abdominal pain Waiting for rehab placement Review of Systems Review of Systems: All systems reviewed & are unremarkable except as noted in Subjective Physical Exam Physical Exam: Physical Exam: Vitals signs as noted above General Appearance:Moderately built and nourished, no apparent distress, chronic ill-appearing Head: normocephalic, Atraumatic Eyes: normal inspection, EOMI Neck: supple, Trachea midline Respiratory/Chest: Normal breath sounds, CTA, No accessory muscle use Cardiovascular: S1, S2, No murmur Abdomen/GI:Soft, Non tender, Bowel sounds present Extremities/Musculoskeletal:normal inspection, 1+ edema Neurologic/Psych:AAOX3, grossly no focal neurological deficits Skin: normal color, warm Results & Data Results & Data Vital Signs (Past 12 Hours) Vital Signs Temp Pulse Pulse Resp BP Pulse Ox O2 Del Method 01/14/24 15:25 36.9 C 71 20 143/92 H 98 Room Air 01/14/24 14:01 79 01/14/24 11:25 36.8 C 75 20 129/82 99 Room Air 01/14/24 07:47 36.6 C 68 20 159/83 H 98 Room Air 01/14/24 07:23 72 Laboratory Results [facility] 01/14/24 05:49 Sodium 139 Potassium 3.8 Chloride 106 Carbon Dioxide 27 BUN 15 Creatinine 1.00 Glucose 89 Calcium 8.5 L (4) Elevated white blood cell count Leukocytosis type: unspecified Qualified Code(s): D72.829 - Elevated white blood cell count, unspecified (9) Urinary incontinence Urinary Incontinence type: unspecified incontinence Qualified Code(s): R32 - Unspecified urinary incontinence (10) Sacral pressure sore Pressure injury stage: stage 1 Qualified Code(s): L89.151 - Pressure ulcer of sacral region, stage 1 (18) Stage 3 chronic kidney disease Chronic kidney disease stage 3 subtype: unspecified whether 3a or 3b Qualified Code(s): N18.30 - Chronic kidney disease, stage 3 unspecified (19) Asthma Asthma severity: unspecified severity Asthma persistence: unspecified Asthma complication type: unspecified Qualified Code(s): J45.909 - Unspecified asthma, uncomplicated (20) COPD (chronic obstructive pulmonary disease) COPD type: unspecified COPD Qualified Code(s): J44.9 - Chronic obstructive pulmonary disease, unspecified (23) GERD (gastroesophageal reflux disease) Esophagitis presence: esophagitis presence not specified Qualified Code(s): K21.9 - Gastro-esophageal reflux disease without esophagitis
[2024-01-15 06:49] LABS: Hematocrit (blood only) 38.1 % (42.0-52.0); Hemoglobin 12.6 g/dl (14.0-18.0); Mean Corpuscular Hgb Conc 33.1 g/dL (32.0-36.0); Mean Corpuscular Volume 93.8 fL (80.0-100.0); Mean Platelet Volume 9.1 fL (9.4-12.4); Platelet Count 189 K/uL (130-400); RDW Coefficient of Variation 14.4 % (11.5-14.5); RDW Standard Deviation 49.6 fL (36.4-46.3); Red Blood Count 4.06 M/uL (4.70-6.10); White Blood Count 9.21 K/ul (4.8-10.8)
--- NOTE | 2024-01-15 06:59 | Nephrology Progress Note ---
Date of Service January 15, 2024 Assessment & Plan (1) Syncope: (2) Weakness: (3) History of orthostatic hypotension: Plan: I have been consulted for further management of severe orthostatic hypotension. he has had multiple falls as well as unresponsiveness episode in the last 2 months. patient is very deconditioned and generalized way. on top of that he appears to have some degree of adrenal insufficiency as well as autonomic dysfunction causing autonomic neuropathy with orthostatic hypotension. unfortunately there is no good treatment for this. -for adrenal insufficiency started 01/13 hydrocortisone 10 twice daily. also continue Florinef 0.1 mg daily. -recommend thigh length compression stocking. this is possible to do while is in the hospital or at a [facility] facility but I do not think it is possible to do it at home as it does require significant amount of strength. if the compression stocking is loose it does not work. -increase the dose of midodrine to 5 mg 3 times daily. -daily orthostatic VS pls while in house but more importantly he has to be very mindful of his limitation. he has to sit on the edge of the bed for many minutes before he stands up to minimize the risk of sudden blood pressure drop on standing. he must always use walker when standing and walking. continue physical therapy with being mindful of his limitation. However bedrest only makes the problem even worse by further deconditioning and muscle weakness. Admission and Anticipated Discharge Date Admission Date: January 04, 2024 Results & Data Vital Signs (Past 12 Hours) Vital Signs Temp Pulse Pulse Resp BP Pulse Ox O2 Del Method 01/15/24 03:36 36.8 C 82 18 142/83 H 98 Room Air 01/15/24 00:16 74 01/14/24 23:21 36.6 C 75 18 143/78 H 97 Room Air 01/14/24 19:42 36.6 C 78 20 164/84 H 96 Room Air Laboratory Results 01/15/24 05:27 (1) Syncope Syncope type: unspecified Qualified Code(s): R55 - Syncope and collapse
[2024-01-15 07:50] LABS: BUN Creatinine Ratio 15.6 (10-20); Calcium 8.5 mg/dl (8.6-10.3); Creatinine Clr Calc Pharmacy 74.9 ml/min; Est GFR (Non-African American) 75.9 ml/min; Potassium 3.7 mmol/L (3.5-5.1)
--- NOTE | 2024-01-15 15:19 | Hospitalist Progress Note ---
Date of Service January 15, 2024 Assessment & Plan (1) Episode of unresponsiveness: Plan: Syncope Likely secondary to orthostatic hypotension --MRI Brain:No acute intracranial abnormality. Scattered foci of T2 hyperintensity seen within the periventricular and subcortical white matter are nonspecific but favor microvascular ischemic change. --EEG:This is an abnormal awake and drowsy routine EEG due to [id number] generalized background slowing suggestive of a nonspecific encephalopathy. No epileptiform activity is seen. Appreciate neurology input and recommendation --Outpatient neurology appointment to get EMG as outpatient -- Continue compression stockings No rhythm issues while hospitalized Prednisone changed to hydrocortisone as recommended by nephrology Also continue Florinef Continue Midodrine increased to 5 mg 3 times daily Continue PT OT Do not treat high blood pressure while supine per nephrology Dizziness much improved Was able to participate well with PT today Plan to discharge to rehab facility when accepted Multiple falls Very deconditioned Generalized weakness Fall precautions Continue PT/OT--recommends SNF (2) History of orthostatic hypotension: Plan: Management as above Received IV fluids --Hold Aricept and Namenda for now (3) Ambulatory dysfunction: Plan: As per prior provider: Branden High is 78y/o M with PMHx of adrenal insufficiency on chronic steroids, bronchial asthma/COPD, ANDRZEJ, history of DVT/PE s/p IVC filter placement (no longer anticoagulated due to bleeding issues), bladder cancer s/p surgery [ off Keytruda secondary to development of myocarditis], prostate cancer s/p radiation therapy, valvular heart disease (moderate , mild AR)/cerebrovascular disease, HTN, orthostatic hypotension, chronic anemia, mild cognitive impairment/dementia, ambulatory dysfunction, urinary incontinence, chronic venous insufficiency, CKD stage III and other problems listed below who presented to the ED via EMS for further medical evaluation following an episode of unresponsiveness w/ associated right eye drooping which has since resolved. Of note, patient was most recently hospitalized from 11/23/23 to 12/09/23 following presentation to the ED for evaluation of generalized weakness and subsequent fall. Hospital course was significant for the treatment of an acute UTI w/ 7-day course of IV ampicillin. Urine culture at that time grew Enterococcus faecalis. Patient was also found to have an VIOLETA (creatinine of 1.4) on admission, which resolved throughout the hospital stay. Head CT at that time showed no acute finding. Patient did have to receive midodrine during admission for orthostatic hypotension and was D/C on midodrine 10 mg p.o. 3 times daily. Patient was also recorded to have a stage II sacral pressure ulcer prior to that admission [wound care was on board during his hospital stay] and subsequently Devlin cath had to be placed d/t baseline urinary incontinence during the hospital course. He was d/c to [facility] and returned home on December 23. 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 Hypomagnesemia Replete electrolytes as needed (5) Acute oral pain: Plan: Patient was given 2 doses of Tylenol [totaling 1300 mg] in the ED w/ relief. -CT face ordered to assess for any determinate cause of left-sided jaw pain (? may be oral abscess contributing to his pain and elevated WBC count). -Has been on Unasyn intravenously>> transition to Augmentin -Appreciate oromaxillary facial surgery Input --Needs follow-up with surgery on discharge (6) Adrenal insufficiency: Plan: Prednisone changed to Cortef 10 mg twice daily Will benefit from following with endocrinology on discharge (7) Immunosuppression due to chronic steroid use: Plan: Patient currently on chronic prednisone therapy [10mg po QAM --> appears to be his baseline dosage according to prior documentation]. Per previous d/c summary, further tapering was deferred to outpatient endocrine f/u [per previous oncology recommendation to do so during last hospital stay]. Patient did NOT f/u with endocrinology prior to his arrival to the ED today. However, an appointment w/ Dr. Iglesias [[facility]] is scheduled for 01/13/24. -Continue Bactrim (3x/week dosing) for PJP prophylaxis while hospitalized. -Prednisone changed to Cortef as above (8) History of hematuria: (9) Urinary incontinence: Plan: Patient did meet w/ Dr. Villareal [[facility]] on 12/14/23 for evaluation of gross hematuria following Devlin catheter exchange at [facility]. It was determined that the hematuria was more than likely the result of traumatic Devlin placement and friable bladder mucosa. Patient is scheduled to undergo cystoscopy with Dr. Villareal at the end of next month. -Devlin catheter still in place, monitor I&O's (10) Sacral pressure sore: Plan: Non-blanching sacral erythema present; however, no open wound was seen on examination. -Wound care consult placed, appreciate their input/recommendations. 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 -Patient placed on aspirin 81mg daily and atorvastatin 40mg daily per Dr. Marti's recommendation given patient's hx. 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 Had received multiple rounds of radiation therapy for prostate cancer many years ago. -Patient follows with [facility] [Dr. Xavi Gramajo] in the outpatient setting. He is scheduled to return to the heme/onc clinic in March. (17) Chronic anemia: Plan: Patient did meet w/ Dr. Xavi Gramajo [[facility]] on 12/15/23 for f/u after his most recent hospitalization. Vit B12, folic acid, ferritin and iron panel were conducted at that time. All of those labs came back w/in normal ranges, therefore he did not require intravenous iron therapy. As per above, he is scheduled to return to the heme/onc clinic in March. 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 Will need follow-up with neurology on discharge (23) GERD (gastroesophageal reflux disease): Plan: -Continue PPI DVT Px SCDs Code Status: Full Code Disposition SNF as able Admission and Anticipated Discharge Date Admission Date: January 04, 2024 Subjective Patient is seen and examined at bedside Feels a lot better today No significant dizziness Did well with PT this morning as per patient Denies any chest pain, nausea, vomiting, abdominal pain Waiting for rehab placement Review of Systems Review of Systems: All systems reviewed & are unremarkable except as noted in Subjective Physical Exam Physical Exam: Physical Exam: Vitals signs as noted above General Appearance:Moderately built and nourished, no apparent distress, chronic ill-appearing Head: normocephalic, Atraumatic Eyes: normal inspection, EOMI Neck: supple, Trachea midline Respiratory/Chest: Normal breath sounds, CTA, No accessory muscle use Cardiovascular: S1, S2, No murmur Abdomen/GI:Soft, Non tender, Bowel sounds present Extremities/Musculoskeletal:normal inspection, 1+ edema Neurologic/Psych:AAOX3, grossly no focal neurological deficits Skin: normal color, warm Results & Data Results & Data Vital Signs (Past 12 Hours) Vital Signs Temp Pulse Pulse Resp BP Pulse Ox O2 Del Method 01/15/24 11:35 36.7 C 68 16 158/88 H 93 Room Air 01/15/24 08:03 37.0 C 80 16 150/81 H 97 Room Air 01/15/24 07:32 76 01/15/24 03:36 36.8 C 82 18 142/83 H 98 Room Air Laboratory Results Short CBC 01/15/24 Range/Units 05:27 WBC 9.21 (4.8-10.8) K/ul Hgb 12.6 L (14.0-18.0) g/dl Hct 38.1 L (42.0-52.0) % Plt Count 189 (130-400) K/uL BMP 01/15/24 05:27 Sodium 138 Potassium 3.7 Chloride 105 Carbon Dioxide 26 BUN 15 Creatinine 0.96 Glucose 90 Calcium 8.5 L (4) Elevated white blood cell count Leukocytosis type: unspecified Qualified Code(s): D72.829 - Elevated white blood cell count, unspecified (9) Urinary incontinence Urinary Incontinence type: unspecified incontinence Qualified Code(s): R32 - Unspecified urinary incontinence (10) Sacral pressure sore Pressure injury stage: stage 1 Qualified Code(s): L89.151 - Pressure ulcer of sacral region, stage 1 (18) Stage 3 chronic kidney disease Chronic kidney disease stage 3 subtype: unspecified whether 3a or 3b Qualified Code(s): N18.30 - Chronic kidney disease, stage 3 unspecified (19) Asthma Asthma severity: unspecified severity Asthma persistence: unspecified Asthma complication type: unspecified Qualified Code(s): J45.909 - Unspecified asthma, uncomplicated (20) COPD (chronic obstructive pulmonary disease) COPD type: unspecified COPD Qualified Code(s): J44.9 - Chronic obstructive pulmonary disease, unspecified (23) GERD (gastroesophageal reflux disease) Esophagitis presence: esophagitis presence not specified Qualified Code(s): K21.9 - Gastro-esophageal reflux disease without esophagitis
[2024-01-16] MEDS: POTASSIUM CHLORIDE CRTAB 20 MEQ TABCR PO STA (01:52)
[2024-01-16] MEDS: MAGNESIUM SULFATE / D5W 1 GM/100 ML BAG IV SCH (03:10)
[2024-01-16] MEDS: NYSTATIN SUSP 500,000 U/5 ML UDC PO SCH (14:00)
--- NOTE | 2024-01-16 16:11 | Hospitalist Progress Note ---
Date of Service January 16, 2024 Assessment & Plan (1) Episode of unresponsiveness: Plan: Syncope Likely secondary to orthostatic hypotension --MRI Brain:No acute intracranial abnormality. Scattered foci of T2 hyperintensity seen within the periventricular and subcortical white matter are nonspecific but favor microvascular ischemic change. --EEG:This is an abnormal awake and drowsy routine EEG due to [id number] generalized background slowing suggestive of a nonspecific encephalopathy. No epileptiform activity is seen. Appreciate neurology input and recommendation --Outpatient neurology appointment to get EMG as outpatient -- Continue compression stockings No rhythm issues while hospitalized Prednisone changed to hydrocortisone as recommended by nephrology Also continue Florinef Continue Midodrine increased to 5 mg 3 times daily Continue PT OT Do not treat high blood pressure while supine per nephrology Dizziness much improved Needs rehab placement Stable for discharge Case management to help with discharge planning Multiple falls Very deconditioned Generalized weakness Fall precautions Continue PT/OT--recommends SNF Oral thrush Started on nystatin (2) History of orthostatic hypotension: Plan: Management as above Received IV fluids --Hold Aricept and Namenda for now (3) Ambulatory dysfunction: Plan: As per prior provider: Branden High is 78y/o M with PMHx of adrenal insufficiency on chronic steroids, bronchial asthma/COPD, ANDRZEJ, history of DVT/PE s/p IVC filter placement (no longer anticoagulated due to bleeding issues), bladder cancer s/p surgery [ off Keytruda secondary to development of myocarditis], prostate cancer s/p radiation therapy, valvular heart disease (moderate , mild AR)/cerebrovascular disease, HTN, orthostatic hypotension, chronic anemia, mild cognitive impairm ent/dementia, ambulatory dysfunction, urinary incontinence, chronic venous insufficiency, CKD stage III and other problems listed below who presented to the ED via EMS for further medical evaluation following an episode of unresponsiveness w/ associated right eye drooping which has since resolved. Of note, patient was most recently hospitalized from 11/23/23 to 12/09/23 following presentation to the ED for evaluation of generalized weakness and subsequent fall. Hospital course was significant for the treatment of an acute UTI w/ 7-day course of IV ampicillin. Urine culture at that time grew Enterococcus faecalis. Patient was also found to have an VIOLETA (creatinine of 1.4) on admission, which resolved throughout the hospital stay. Head CT at that time showed no acute fi nding. Patient did have to receive midodrine during admission for orthostatic hypotension and was D/C on midodrine 10 mg p.o. 3 times daily. Patient was also recorded to have a stage II sacral pressure ulcer prior to that admission [wound care was on board during his hospital stay] and subsequently Devlin cath had to be placed d/t baseline urinary incontinence during the hospital course. He was d/c to [facility] and returned home on December 23. Needs neurology follow-up as outpatient for nerve conduction studies (4) Elevated white blood cell count: Plan: Chronic steroid therapy -Patient is currently on 3x/weekly dosing of Bactrim for PJP prophylaxis. Hypomagnesemia Replete electrolytes as needed (5) Acute oral pain: Plan: Patient was given 2 doses of Tylenol [totaling 1300 mg] in the ED w/ relief. -CT face ordered to assess for any determinate cause of left-sided jaw pain (? may be oral abscess contributing to his pain and elevated WBC count). -Has been on Unasyn intravenously>> transition to Augmentin -Appreciate oromaxillary facial surgery Input --Needs follow-up with surgery on discharge (6) Adrenal insufficiency: Plan: Prednisone changed to Cortef 10 mg twice daily Will benefit from following with endocrinology on discharge (7) Immunosuppression due to chronic steroid use: Plan: Patient currently on chronic prednisone therapy [10mg po QAM --> appears to be his baseline dosage according to prior documentation]. Per previous d/c summary, further tapering was deferred to outpatient endocrine f/u [per previous oncology recommendation to do so during last hospital stay]. Patient did NOT f/u with endocrinology prior to his arrival to the ED today. However, an appointment w/ Dr. Iglesias [[facility]] is scheduled for 01/13/24. -Continue Bactrim (3x/week dosing) for PJP prophylaxis while hospitalized. -Prednisone changed to Cortef as above (8) History of hematuria: (9) Urinary incontinence: Plan: Patient did meet w/ Dr. Villareal [[facility]] on 12/14/23 for evaluation of gross hematuria following Devlin catheter exchange at [facility]. It was determined that the hematuria was more than likely the result of traumatic Devlin placement and friable bladder mucosa. Patient is scheduled to undergo cystoscopy with Dr. Villareal at the end of next month. -Devlin catheter still in place, monitor I&O's (10) Sacral pressure sore: Plan: Non-blanching sacral erythema present; however, no open wound was seen on examination. -Wound care consult placed, appreciate their input/recommendations. 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 -Patient placed on aspirin 81mg daily and atorvastatin 40mg daily per Dr. Marti's recommendation given patient's hx. 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 Nonmuscle invasive papillary blad yefri cancer diagnosed in April 2023. Had received multiple rounds of radiation therapy for prostate cancer many years ago. -Patient follows with [facility] [Dr. Xavi Gramajo] in the outpatient setting. He is scheduled to return to the heme/onc clinic in March. (17) Chronic anemia: Plan: Patient did meet w/ Dr. Xavi Gramajo [[facility]] on 12/15/23 for f/u after his most recent hospitalization. Vit B12, folic acid, ferritin and iron panel were conducted at that time. All of those labs came back w/in normal ranges, therefore he did not require intravenous iron therapy. As per above, he is scheduled to return to the heme/onc clinic in March. 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 Will need follow-up with neurology on discharge (23) GERD (gastroesophageal reflux disease): Plan: -Continue PPI DVT Px SCDs Code Status: Full Code Disposition SNF as able Admission and Anticipated Discharge Date Admission Date: January 04, 2024 Subjective Patient is seen and examined at bedside Offers no new complaints Dizziness continues to improve Denies any chest pain, nausea, vomiting, abdominal pain Waiting for rehab placement Review of Systems Review of Systems: All systems reviewed & are unremarkable except as noted in Subjective Physical Exam Physical Exam: Physical Exam: Vitals signs as noted above General Appearance:Moderately built and nourished, no apparent distress, chronic ill-appearing Head: normocephalic, Atraumatic Eyes: normal inspection, EOMI Neck: supple, Trachea midline Respiratory/Chest: Normal breath sounds, CTA, No accessory muscle use Cardiovascular: S1, S2, No murmur Abdomen/GI:Soft, Non tender, Bowel sounds present Extremities/Musculoskeletal:normal inspection, 1+ edema Neurologic/Psych:AAOX3, grossly no focal neurological deficits Skin: normal color, warm Results & Data Results & Data Vital Signs (Past 12 Hours) Vital Signs Temp Pulse Pulse Resp BP Pulse Ox O2 Del Method 01/16/24 16:05 37.0 C 71 16 146/83 H 96 Room Air 01/16/24 12:26 36.8 C 77 16 158/89 H 93 Room Air 01/16/24 08:33 37.1 C 70 16 143/78 H 96 Room Air 01/16/24 07:30 74 (4) Elevated white blood cell count Leukocytosis type: unspecified Qualified Code(s): D72.829 - Elevated white blood cell count, unspecified (9) Urinary incontinence Urinary Incontinence type: unspecified incontinence Qualified Code(s): R32 - Unspecified urinary incontinence (10) Sacral pressure sore Pressure injury stage: stage 1 Qualified Code(s): L89.151 - Pressure ulcer of sacral region, stage 1 (18) Stage 3 chronic kidney disease Chronic kidney disease stage 3 subtype: unspecified whether 3a or 3b Qualified Code(s): N18.30 - Chronic kidney disease, stage 3 unspecified (19) Asthma Asthma severity: unspecified severity Asthma persistence: unspecified Asthma complication type: unspecified Qualified Code(s): J45.909 - Unspecified asthma, uncomplicated (20) COPD (chronic obstructive pulmonary disease) COPD type: unspecified COPD Qualified Code(s): J44.9 - Chronic obstructive pulmonary disease, unspecified (23) GERD (gastroesophageal reflux disease) Esophagitis presence: esophagitis presence not specified Qualified Code(s): K21.9 - Gastro-esophageal reflux disease without esophagitis
--- NOTE | 2024-01-17 09:47 | Nephrology Progress Note ---
Date of Service January 17, 2024 Assessment & Plan (1) Orthostatic hypotension: Plan: multiple falls as well as unresponsiveness episode in the last 2 months. patient is very deconditioned in generalized way. on top of that he appears to have some degree of adrenal insufficiency as well as autonomic dysfunction causing autonomic neuropathy with orthostatic hypotension. unfortunately there is no good treatment for this. >for adrenal insufficiency continue hydrocortisone 10 twice daily to see if that makes better difference. also continue Florinef 0.1 alexy daily. >recommend thigh length compression stocking in hospital but ultimately need waist high compression this is possible to do while is in the hospital or at a detention facility but I do not think it is possible to do it at home as it does require significant amount of strength. if the compression stocking is loose it does not work. >Continue midodrine to 5 mg 3 times daily. but more importantly he has to be very mindful of his limitation. he has to sit on the edge of the bed for many minutes before he stands up to minimize the risk of sudden blood pressure drop on standing. he must always use walker when standing and walking. continue physical therapy with being mindful of his limitation. However bedrest only makes the problem even worse by further deconditioning and muscle weakness. Also do not treat Supine HTN. BP therapy has to be directed 100% by Standing BP and standing BP only !!! will sign off; no neph f/u needed; could consider endocrine f/u for adrenal insufficiency monitoring/tx Admission and Anticipated Discharge Date Admission Date: January 04, 2024 Subjective no interval events clinically. told he needs to wait 15-20 min befor emoveing. still orthostatic but less so Review of Systems Review of Systems: All systems reviewed & are unremarkable except as noted in Subjective Physical Exam Constitutional: well developed and well nourished Eyes: EOM intact bilaterally ENMT: Ears: no external ear abnormality Nose: no external nose abnormality Mouth: + dry oral mucous membranes Neck: no nuchal rigidity Respiratory: normal respiratory effort Auscultation: + diminished lung sounds Cardiovascular: Rate/Rhythm: regular rate and regular rhythm Heart Sounds: + murmur Extremities: no edema Gastrointestinal (Abdomen): Inspection/Auscultation: normal bowel sounds Percussion/Palpation: abdomen soft; abdomen nontender Musculoskeletal: Extremities: strength 5/5 throughout Skin: no rashes, warm and dry Neurologic: mejia, fluent speech, no tremor Results & Data Vital Signs (Past 12 Hours) Vital Signs Temp Pulse Pulse Resp BP Pulse Ox O2 Del Method 01/17/24 07:15 36.6 C 60 18 152/82 H 97 Room Air 01/17/24 03:22 36.5 C 74 16 154/83 H 96 Room Air 01/16/24 23:18 36.5 C 80 16 144/78 H 95 Room Air 01/16/24 22:01 73 Laboratory Results none new
--- NOTE | 2024-01-17 12:34 | Hospitalist Progress Note ---
Date of Service January 17, 2024 Assessment & Plan (1) Episode of unresponsiveness: Plan: Syncope Likely secondary to orthostatic hypotension --MRI Brain:No acute intracranial abnormality. Scattered foci of T2 hyperintensity seen within the periventricular and subcortical white matter are nonspecific but favor microvascular ischemic change. --EEG:This is an abnormal awake and drowsy routine EEG due to [id number] generalized background slowing suggestive of a nonspecific encephalopathy. No epileptiform activity is seen. Appreciate neurology input and recommendation --Outpatient neurology appointment to get EMG as outpatient -- Continue compression stockings No rhythm issues while hospitalized Prednisone changed to hydrocortisone 10 mg twice a day as recommended by nephrology Also continue Florinef 0.1 mg daily Continue Midodrine increased to 5 mg 3 times daily Continue PT OT Do not treat high blood pressure while supine per nephrology Dizziness much improved with current medications Plan to discharge to rehab facility today Multiple falls Very deconditioned Generalized weakness Fall precautions Continue PT/OT--recommends SNF Oral thrush continue nystatin (2) History of orthostatic hypotension: Plan: Management as above Received IV fluids --Hold Aricept and Namenda for now (3) Ambulatory dysfunction: Plan: As per prior provider: Branden High is 78y/o M with PMHx of adrenal insufficiency on chronic steroids, bronchial asthma/COPD, ANDRZEJ, history of DVT/PE s/p IVC filter placement (no longer anticoagulated due to bleeding issues), bladder cancer s/p surgery [ off Keytruda secondary to development of myocarditis], prostate cancer s/p radiation therapy, valvular heart disease (moderate , mild AR)/cerebrovascular disease, HTN, orthostatic hypotension, chronic anemia, mild cognitive i mpairment/dementia, ambulatory dysfunction, urinary incontinence, chronic venous insufficiency, CKD stage III and other problems listed below who presented to the ED via EMS for further medical evaluation following an episode of unresponsiveness w/ associated right eye drooping which has since resolved. Of note, patient was most recently hospitalized from 11/23/23 to 12/09/23 following presentation to the ED for evaluation of generalized weakness and subsequent fall. Hospital course was significant for the treatment of an acute UTI w/ 7-day course of IV ampicillin. Urine culture at that time grew Enterococcus faecalis. Patient was also found to have an VIOLETA (creatinine of 1.4) on admission, which resolved throughout the hospital stay. Head CT at that time showed no acute finding. Patient did have to receive midodrine during admission for orthostatic hypotension and was D/C on midodrine 10 mg p.o. 3 times daily. Patient was also recorded to have a stage II sacral pressure ulcer prior to that admission [wound care was on board during his hospital stay] and subsequently Devlin cath had to be placed d/t baseline urinary incontinence during the hospital course. He was d/c to [facility] and returned home on December 23. Needs neurology follow-up as outpatient for nerve conduction studies (4) Elevated white blood cell count: Plan: Chronic steroid therapy -Patient is currently on 3x/weekly dosing of Bactrim for PJP prophylaxis. Hypomagnesemia Replete electrolytes as needed (5) Acute oral pain: Plan: Patient was given 2 doses of Tylenol [totaling 1300 mg] in the ED w/ relief. -CT face ordered to assess for any determinate cause of left-sided jaw pain (? may be oral abscess contributing to his pain and elevated WBC count). -Has been on Unasyn intravenously>> transition to Augmentin -Appreciate oromaxillary facial surgery Input --Needs follow-up with surgery on discharge (6) Adrenal insufficiency: Plan: Prednisone changed to Cortef 10 mg twice daily Will benefit from following with endocrinology on discharge (7) Immunosuppression due to chronic steroid use: Plan: Patient currently on chronic prednisone therapy [10mg po QAM --> appears to be his baseline dosage according to prior documentation]. Per previous d/c summary, further tapering was deferred to outpatient endocrine f/u [per previous oncology recommendation to do so during last hospital stay]. Patient did NOT f/u with endocrinology prior to his arrival to the ED today. However, an appointment w/ Dr. Iglesias [[facility]] is scheduled for 01/13/24. -Continue Bactrim (3x/week dosing) for PJP prophylaxis while hospitalized. -Prednisone changed to Cortef as above (8) History of hematuria: (9) Urinary incontinence: Plan: Patient did meet w/ Dr. Villareal [[facility]] on 12/14/23 for evaluation of gross hematuria following Devlin catheter exchange at [facility]. It was determined that the hematuria was more than likely the result of traumatic Devlin placement and friable bladder mucosa. Patient is scheduled to undergo cystoscopy with Dr. Villareal at the end of next month. -Devlin catheter still in place, monitor I&O's (10) Sacral pressure sore: Plan: Non-blanching sacral erythema present; however, no open wound was seen on examination. -Wound care consult placed, appreciate their input/recommendations. 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 -Patient placed on aspirin 81mg daily and atorvastatin 40mg daily per Dr. Marti's recommendation given patient's hx. 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 Had received multiple rounds of radiation therapy for prostate cancer many years ago. -Patient follows with [facility] [Dr. Xavi Gramajo] in the outpatient setting. He is scheduled to return to the heme/onc clinic in March. (17) Chronic anemia: Plan: Patient did meet w/ Dr. Xavi Gramajo [[facility]] on 12/15/23 for f/u after his most recent hospitalization. Vit B12, folic acid, ferritin and iron panel were conducted at that time. All of those labs came back w/in normal ranges, therefore he did not require intravenous iron therapy. As per above, he is scheduled to return to the heme/onc clinic in March. -Continue CHECK SCALER ferrous sulfate, vit B12 (18) Stage 3 chronic kidney disease: Plan: Creatinine at baseline -Monitor (19) Asthma: (20) COPD (chronic obstructive pulmonary disease): Plan: -Continue Trelegy, PRN albuterol inhaler -No evidence of acute exacerbation (21) Mild cognitive impairment: (22) Tremor observed on examination: Plan: -Monitor for any signs of delirium during hospital stay. Will need follow-up with neurology on discharge (23) GERD (gastroesophageal reflux disease): Plan: -Continue PPI DVT Px SCDs Code Status: Full Code Disposition SNF today Admission and Anticipated Discharge Date Admission Date: January 04, 2024 Subjective Patient is seen and examined at bedside States feeling well today No new complaints Plan to be discharged to rehab facility today Denies any chest pain, nausea, vomiting, abdominal pain Dizziness much improved Review of Systems Review of Systems: All systems reviewed & are unremarkable except as noted in Subjective Physical Exam Physical Exam: Physical Exam: Vitals signs as noted above General Appearance:Moderately built and nourished, no apparent distress, chronic ill-appearing Head: normocephalic, Atraumatic Eyes: normal inspection, EOMI Neck: supple, Trachea midline Respiratory/Chest: Normal breath sounds, CTA, No accessory muscle use Cardiovascular: S1, S2, No murmur Abdomen/GI:Soft, Non tender, Bowel sounds present Extremities/Musculoskeletal:normal inspection, 1+ edema Neurologic/Psych:AAOX3, grossly no focal neurological deficits Skin: normal color, warm Results & Data Results & Data Vital Signs (Past 12 Hours) Vital Signs Temp Pulse Pulse Resp BP Pulse Ox O2 Del Method 01/17/24 11:31 36.5 C 67 18 136/80 98 Room Air 01/17/24 11:00 67 96/65 L 01/17/24 10:08 73 01/17/24 07:15 36.6 C 60 18 152/82 H 97 Room Air 01/17/24 03:22 36.5 C 74 16 154/83 H 96 Room Air (4) Elevated white blood cell count Leukocytosis type: unspecified Qualified Code(s): D72.829 - Elevated white blood cell count, unspecified (9) Urinary incontinence Urinary Incontinence type: unspecified incontinence Qualified Code(s): R32 - Unspecified urinary incontinence (10) Sacral pressure sore Pressure injury stage: stage 1 Qualified Code(s): L89.151 - Pressure ulcer of sacral region, stage 1 (18) Stage 3 chronic kidney disease Chronic kidney disease stage 3 subtype: unspecified whether 3a or 3b Qualified Code(s): N18.30 - Chronic kidney disease, stage 3 unspecified (19) Asthma Asthma severity: unspecified severity Asthma persistence: unspecified Asthma complication type: unspecified Qualified Code(s): J45.909 - Unspecified asthma, uncomplicated (20) COPD (chronic obstructive pulmonary disease) COPD type: unspecified COPD Qualified Code(s): J44.9 - Chronic obstructive pulmonary disease, unspecified (23) GERD (gastroesophageal reflux disease) Esophagitis presence: esophagitis presence not specified Qualified Code(s): K21.9 - Gastro-esophageal reflux disease without esophagitis
--- NOTE | 2024-01-17 12:54 | Discharge Summary ---
Date of Service January 17, 2024 Admission HPI Per Admitting Provider Branden High is 78y/o M with PMHx of adrenal insufficiency on chronic steroids, bronchial asthma/COPD, ANDRZEJ, history of DVT/PE s/p IVC filter placement (no longer anticoagulated due to bleeding issues), bladder cancer s/p surgery [ off Keytruda secondary to development of myocarditis], prostate cancer s/p radiation therapy, valvular heart disease (moderate , mild AR), HTN, orthostatic hypotension, chronic anemia, mild cognitive impairment/dementia, ambulatory dysfunction, urinary incontinence, chronic venous insufficiency, CKD stage III and other problems listed below who presented to the ED via EMS for further medical evaluation following an episode of unresponsiveness w/ associated right eye drooping which has since resolved. Patient seen at bedside, present in the room and provides most of the history. Additional history obtained from the patient and associated ED/hospital/PCP/specialist records. Of note, patient was most recently hospitalized from 11/23/23 to 12/09/23 following presentation to the ED for evaluation of generalized weakness and subsequent fall. Hospital course was significant for the treatment of an acute UTI w/ 7-day course of IV ampicillin. Urine culture at that time grew Enterococcus faecalis. Patient was also found to have an VIOLETA (creatinine of 1.4) on admission, which r esolved throughout the hospital stay. Head CT at that time showed no acute finding. Patient did have to receive midodrine during admission for orthostatic hypotension and was d/c on midodrine 10 mg p.o. 3 times daily. Patient was known to have orthostatic hypotension prior to his previous admission. Patient was also recorded to have a stage II sacral pressure ulcer during that admission [ wound care was on board during his hospital stay] and subsequently a Devlin cath had to be placed d/t baseline urinary incontinence during the hospital course. He was d/c to [facility] and returned home on December 23. reports that the patient had a brief episode of unresponsiveness after being transferred out of the car onto the seat attached his walker upon arrival to a scheduled dentist appointment this morning. states the episode lasted approximately 1 minute during which that time his eyes appeared to be "glazed over" and "rolling back into his head." Patient reports that he does not remember this event occurring. denies any seizure-like activity, but does endorse some right eye drooping during that episode that has since resolved. Patient denies any chest pain, SOB, headaches, lightheadedness/dizziness or any recent falls. Patient reports lack of appetite since being home from SNF. reports inadequate fluid intake at home, but denies any dario decrease in his urinary output. reports that he has been urinating approximately 2 L/day since being home from SNF. does report that he has gradually lost approximately 20 pounds since the beginning of this year. Patient does ambulate with a walker at home and has a hospital bed that remains on the first floor of their house so that he has access to the restroom if need be. Patient does report that he has a bedside commode at home, but has been dealing with bowel incontinence issues for the past few months. He wears an incontinence diaper daily at baseline. reports frequent changes of his incontinence diaper, as she is his primary policy services representative at home. Patient reports that it can be hard to decipher whether he is having a bowel movement or passing gas at times d/t both events having similar physical cues. More often than not, he is having a bowel movement in his incontinence diaper rather than in the bedside commode. Patient does report some generalized lethargy and weakness, which have been ongoing since his last admission. Additionally, he has had some left-sided oral pain for the past week that he has been treating with [id number] Tylenol at home. Unfortunately, patient was unable to see his dentist this morning for this issue d/t the episode of unresponsiveness in the parking lot of the dental office. Of note, patient was given oral Tylenol and 500 mL of NSS in the ED. Patient currently reports 3/10 pain. Admission Exam Per Admitting Provider General Appearance: WD/WN, vitals as above, NAD, laying in bed, pleasant, conversing appropriately. Head: Normocephalic, atraumatic. Eyes: Normal inspection, PERRL, conjunctivae normal, anicteric sclerae. ENT: External ear and nose normal, oropharynx normal. Moist mucous membranes, grossly normal dentition. No overt dental abscess noted on examination. Neck: Normal visual inspection, trachea midline, no thyromegaly. Respiratory: Normal respiratory effort, lungs clear to auscultation, no wheeze, rales, rhonchi. No accessory muscle use. Cardiovascular: Regular rate, rhythm, no murmur, normal peripheral pulses, mild BLE +1 edema. Vessels: No JVD. Chest: Normal inspection of chest. Abdomen/GI: Normal bowel sounds, soft, nontender, no hepatosplenomegaly. : Devlin catheter in place, appears to be draining well. Extremities/Musculoskeletal: No cyanosis or clubbing, extremities motor strength 5/5. Onychomycosis of multiple nails on both feet. Evidence of previous right second toenail noted. Neurologic: PERRL, EOMI, accommodation nl, no face palsy, no dysarthria, CN's II-XI grossly intact bilaterally and moves all extremities. No sensory deficits. Tremor noted at rest and with UE movement. Psychiatric: A+Ox3, euthymic affect. Skin: Erythema present in the sacral area, skin in that region appears intact. Chronic venous changes of RLE. Principal Diagnosis Syncope Orthostatic hypotension Multiple falls Oral thrush Ambulatory dysfunction H/O Adrenal insufficiency Mild cognitive impairment Discharge Data Allergies Allergy/AdvReac Type Severity Reaction Status Date / Time Iodinated Contrast Media Allergy Severe LOVERSOL---CARDIAC Verified 01/04/24 15:[address] CONTRAST clindamycin Allergy Intermediate Rash Verified 01/04/24 15:42 chocolate flavor AdvReac Severe DIARRHEA/ Verified 01/04/24 15:42 Cannot take, interacts w/ medications. cranberry AdvReac Severe Cannot Verified 01/04/24 15:42 take, interacts w/ medications. pembrolizumab [From [employer]] AdvReac Intermediate myocarditis Verified 01/04/24 15:42 Consultations 01/04/24 12:42 ED Decision to Admit Stat 01/04/24 15:35 Consult Neurology Routine 01/05/24 03:10 Consult Oromaxillofacial Surgery Routine 01/11/24 16:22 Consult Nephrology Routine Procedures Performed Laboratory Results WBC 9.21 K/ul (4.8-10.8) 01/15/24 05:27 RBC 4.06 M/uL (4.70-6.10) L 01/15/24 05:27 Hgb 12.6 g/dl (14.0-18.0) L 01/15/24 05:27 Hct 38.1 % (42.0-52.0) L 01/15/24 05:27 MCV 93.8 fL (80.0-100.0) 01/15/24 05: MCH 31.0 pg (25.0-34.0) 01/15/24 05: MCHC 33.1 g/dL (32.0-36.0) 01/15/24 05: RDW Std Deviation 49.6 fL (36.4-46.3) H 01/15/24 05: RDW Coeff of Robert 14.4 % (11.5-14.5) 01/15/24 05: Plt Count 189 K/uL (130-400) 01/15/24 05: MPV 9.1 fL (9.4-12.4) L 01/15/24 05:27 Immature Gran % (Auto) 0.5 % 01/10/24 08:07 Neut % (Auto) 64.7 % 01/10/24 08:07 Lymph % (Auto) 26.6 % 01/10/24 08:07 [place] % (Auto) 7.1 % 01/10/24 08:07 Eos % (Auto) 0.5 % 01/10/24 08:07 Baso % (Auto) 0.6 % 01/10/24 08:07 Neut # (Auto) 5.72 K/uL (1.40-6.50) 01/10/24 08:07 Lymph # (Auto) 2.35 K/uL (1.20-3.40) 01/10/24 08:07 [place] # (Auto) 0.63 K/uL (0.11-0.59) H 01/10/24 08:07 Eos # (Auto) 0.04 K/uL (0.00-0.50) 01/10/24 08:07 Baso # (Auto) 0.05 K/uL (0.00-0.20) 01/10/24 08:07 Immature Gran # (Auto) 0.04 K/uL (0.01-0.20) 01/10/24 08:07 Sodium 138 mmol/L (136-145) 01/15/24 05:27 Potassium 3.7 mmol/L (3.5-5.1) 01/15/24 05:27 Chloride 105 mmol/L (98-107) 01/15/24 05:27 Carbon Dioxide 26 mmol/L (21-32) 01/15/24 05:27 Anion Gap 7 (3-11) 01/15/24 05:27 BUN 15 mg/dl (6-23) 01/15/24 05:27 Creatinine 0.96 mg/dl (0.6-1.4) 01/15/24 05:27 Est Cr Clr Drug Dosing 74.9 ml/min 01/15/24 05:27 Est GFR ( Amer) 88.0 ml/min 01/15/24 05:27 Est GFR (Non-Af Amer) 75.9 ml/min 01/15/24 05:27 BUN/Creatinine Ratio 15.6 (10-20) 01/15/24 05:27 Glucose 90 mg/dl (70-99(Fasting)) 01/15/24 05:27 POC Glucose 92 mg/dl (70-99) 01/14/24 06:27 Calcium 8.5 mg/dl (8.6-10.3) L 01/15/24 05:27 Phosphorus 3.5 mg/dl (2.5-4.9) 01/10/24 08:07 Magnesium 1.7 mg/dl (1.7-2.4) 01/14/24 05:49 Iron 57 mcg/dl (35-175) 01/05/24 07:22 TIBC 210 mcg/dl (250-450) L 01/05/24 07:22 Unsaturated IBC 153 mcg/dl (155-355) L 01/05/24 07:22 Transferrin % Sat 27 % (20-50) 01/05/24 07:22 Ferritin 182.2 ng/ml (8-388) 01/05/24 07:22 Total Bilirubin 0.4 mg/dl (0.2-1.0) 01/04/24 09:59 AST 9 U/L (13-39) L 01/04/24 09:59 ALT 10 U/L (7-52) 01/04/24 09:59 Alkaline Phosphatase 60 U/L (34-104) 01/04/24 09:59 Troponin I High Sens 8.5 pg/ml (0-20) 01/04/24 09:59 Total Protein 5.8 gm/dl (6.0-8.3) L 01/04/24 09:59 Albumin 3.5 gm/dl (3.4-5.0) 01/04/24 09:59 Globulin 2.3 gm/dl (2.5-4.0) L 01/04/24 09:59 Albumin/Globulin Ratio 1.5 (0.9-2) 01/04/24 09:59 Vitamin B12 1047 pg/ml (180-914) H 01/05/24 07:22 Folate 11.34 ng/ml (>5.38) 01/05/24 07:22 Urine Color Yellow 01/06/24 21:50 Urine Appearance Cloudy (Clear) A 01/06/24 21:50 Urine pH 6.0 (4.5-7.5) 01/06/24 21:50 Ur Specific [place] 1.010 (1.000-1.030) 01/06/24 21:50 Urine Protein Negative (Negative) 01/06/24 21:50 Urine Glucose (UA) Negative (Negative) 01/06/24 21:50 Urine Ketones Negative (Negative) 01/06/24 21:50 Urine Blood 2+ (Negative) H 01/06/24 21:50 Urine Nitrite Negative (Negative) 01/06/24 21:50 Urine Bilirubin Negative (Negative) 01/06/24 21:50 Urine Urobilinogen Negative (Negative) 01/06/24 21:50 Ur Leukocyte Esterase 3+ (Negative) H 01/06/24 21:50 Urine WBC (Auto) >50 /hpf (0-5) H 01/06/24 21:50 Urine RBC (Auto) >20 /hpf (0-2) H 01/06/24 21:50 U Hyaline Cast (Auto) 0-2 /lpf (0-2) 01/06/24 21:50 U Epithel Cells (Auto) 0-2 /hpf (0-2) 01/06/24 21:50 Urine Bacteria (Auto) None Seen (None Seen) 01/06/24 21:50 Calcium Oxalate Crystal Present (None Prsent) A 01/06/24 21:50 Urine Yeast Present (None Prsent) A 01/06/24 21:50 Lyme Disease Screen Negative (Negative) 01/04/24 09:59 Impressions Chest X-Ray 01/04/24 10:28 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 Comparison: Comparison is made to chest radiographs 11/23/2023 FINDINGS: No lines and tubes are seen. Calcified aortic knob is seen. The lungs are clear. No evidence of pleural effusion or pneumothorax. IMPRESSION: No acute chest disease. ACT 112: Negative or not required by law. Electronically signed by: Alonso Fay M.D. 01/04/2024 10:[address] 01/04/24 10:[address] DOSE: 625.8 mGy.cm HISTORY: R eye droop TECHNIQUE: Multiaxial CT images of the head were performed without the use of intravenous contrast. Automated exposure control was utilized for this study. A dose lowering technique was utilized adhering to the principles of ALARA. Comparison: Head CT 11/23/2023. Findings: Mild mucosal thickening and a small fluid level again noted within the left maxillary sinus. Trace fluid levels within the sphenoid sinuses, unchanged. The mastoid air cells are clear. Prior bilateral lens replacement. Otherwise, the orbits are unremarkable. The calvarium and skull base are intact. There is no mass, hematoma, midline shift, acute infarct. White matter hypodensity is nonspecific but suggestive of microvascular ischemic change. The ventricles and sulci demonstrate mild age-related involutional changes. Mild motion artifact. Impression: No significant change compared to the prior study. No acute intracranial abnormality. ACT 112: Negative or not required by law. Electronically signed by: Des Harrison M.D. 01/04/2024 11:42 AM Brain MRI 01/04/24 12:42 Brain MRI WITHOUT CONTRAST HISTORY: R sided ptosis TECHNIQUE: Multiplanar multisequence MRI of the brain was performed without the use of contrast. COMPARISON STUDY: Head CT 01/03/2024 brain MRI 02/03/2020. FINDINGS: There is no mass, hematoma, midline shift, or acute infarct. The paranasal sinuses are clear. The mastoid air cells are clear. The ventricles and sulci demonstrate mild age-related involutional changes. Scattered foci of T2 hyperintensity seen within the periventricular and subcortical white matter are nonspecific but suggestive of mild microvascular ischemic changes. The major vascular flow voids at the skull base are well-maintained. Prior bilateral lens replacement. Small fluid levels within the sphenoid sinuses and left maxillary sinus, unchanged. IMPRESSION: 1. No acute intracranial abnormality. 2. Scattered foci of T2 hyperintensity seen within the periventricular and subcortical white matter are nonspecific but favor microvascular ischemic change. ACT 112: Negative or not required by law. Electronically signed by: Des Harrison M.D. 01/04/2024 2:[address] 01/04/24 17:[address] DOSE: HISTORY: Dental abscess concern TECHNIQUE: Multiaxial CT images of the maxillofacial region were performed and reformatted in the coronal plane without the use of contrast. A dose lowering technique was utilized adhering to the principles of ALARA. COMPARISON: Maxillofacial CT 09/20/2014. FINDINGS: The visualized cervical spine, skull base, pterygoid plates, nasal bones, lamina papyracea, orbital floors, mandible, and zygomatic arches are inta ct. No fractures. The orbits are unremarkable. The right mastoid air cells are clear. There are few opacified left mastoid air cells. Mild mucosal thickening and small fluid levels within the sphenoid sinuses and left maxillary sinus. Dental artifact obscures the oral cavity. There are few scattered dental caries noted. No periapical lucencies identified. No definite loculated fluid collections to suggest an abscess on this noncontrast study. IMPRESSION: Dental artifact obscures the oral cavity. There are few scattered dental caries noted. No periapical lucencies identified. No definite loculated fluid collections to suggest an abscess on this noncontrast study. ACT 112: Negative or not required by law. Electronically signed by: Des Harrison M.D. 01/05/2024 8:55 AM Ordered Studies 01/04/24 10:28 CT head/brain wo con Stat 01/04/24 12:42 MR brain wo con Stat 01/04/24 17:30 CT face [CT facial bones wo con] Routine Hospital Course (1) Episode of unresponsiveness: Syncope Likely secondary to orthostatic hypotension --MRI Brain:No acute intracranial abnormality. Scattered foci of T2 hyperintensity seen within the periventricular and subcortical white matter are nonspecific but favor microvascular ischemic change. --EEG:This is an abnormal awake and drowsy routine EEG due to [id number] generalized background slowing suggestive of a nonspecific encephalopathy. No epileptiform activity is seen. Appreciate neurology input and recommendation --Outpatient neurology appointment to get EMG as outpatient -- Continue compression stockings No rhythm issues while hospitalized Prednisone changed to hydrocortisone 10 mg twice a day as recommended by nephrology Also continue Florinef 0.1 mg daily Continue Midodrine increased to 5 mg 3 times daily Continue PT OT Do not treat high blood pressure while supine per nephrology Dizziness much improved with current medications Plan to discharge to rehab facility today Multiple falls Very deconditioned Generalized weakness Fall precautions Continue PT/OT--recommends SNF Oral thrush continue nystatin (2) History of orthostatic hypotension: Management as above Received IV fluids --Hold Aricept and Namenda for now (3) Ambulatory dysfunction: As per prior provider: Branden High is 78y/o M with PMHx of adrenal insufficiency on chronic steroids, bronchial asthma/COPD, ANDRZEJ, history of DVT/PE s/p IVC filter placement (no longer anticoagulated due to bleeding issues), bladder cancer s/p surgery [ off Keytruda secondary to development of myocarditis], prostate cancer s/p radiation therapy, valvular heart disease (moderate , mild AR)/cerebrovascular disease, HTN, orthostatic hypotension, chronic anemia, mild cognitive impairment/dementia, ambulatory dysfunction, urinary incontinence, chronic venous insufficiency, CKD stage III and other problems listed below who presented to the ED via EMS for further medical evaluation following an episode of unresponsiveness w/ associated right eye drooping which has since resolved. Of note, patient was most recently hospitalized from 11/23/23 to 12/09/23 following presentation to the ED for evaluation of generalized weakness and subsequent fall. Hospital course was significant for the treatment of an acute UTI w/ 7-day course of IV ampicillin. Urine culture at that time grew Enterococcus faecalis. Patient was also found to have an VIOLETA (creatinine of 1.4) on admission, which resolved throughout the hospital stay. Head CT at that time showed no acute finding. Patient did have to receive midodrine during admission for orthostatic hypotension and was D/C on midodrine 10 mg p.o. 3 times daily. Patient was also recorded to have a stage II sacral pressure ulcer prior to that admission [wound care was on board during his hospital stay] and subsequently Devlin cath had to be placed d/t baseline urinary incontinence during the hospital course. He was d/c to [facility] and returned home on December 23. Needs neurology follow-up as outpatient for nerve conduction studies (4) Elevated white blood cell count: Chronic steroid therapy -Patient is currently on 3x/weekly dosing of Bactrim for PJP prophylaxis. Hypomagnesemia Replete electrolytes as needed (5) Acute oral pain: Patient was given 2 doses of Tylenol [totaling 1300 mg] in the ED w/ relief. -CT face ordered to assess for any determinate cause of left-sided jaw pain (? may be oral abscess contributing to his pain and elevated WBC count). -Has been on Unasyn intravenously>> transition to Augmentin -Appreciate oromaxillary facial surgery Input --Needs follow-up with surgery on discharge (6) Adrenal insufficiency: Prednisone changed to Cortef 10 mg twice daily Will benefit from following with endocrinology on discharge (7) Immunosuppression due to chronic steroid use: Patient currently on chronic prednisone therapy [10mg po QAM --> appears to be his baseline dosage according to prior documentation]. Per previous d/c summary, further tapering was deferred to outpatient endocrine f/u [per previous oncology recommendation to do so during last hospital stay]. Patient did NOT f/u with endocrinology prior to his arrival to the ED today. However, an appointment w/ Dr. Iglesias [[facility]in[facility]] is scheduled for 01/13/24. -Continue Bactrim (3x/week dosing) for PJP prophylaxis while hospitalized. -Prednisone changed to Cortef as above (8) History of hematuria: (9) Urinary incontinence: Patient did meet w/ Dr. Villareal [[facility]] on 12/14/23 for evaluation of gross hematuria following Devlin catheter exchange at [facility]. It was determined that the hematuria was more than likely the result of traumatic Devlin placement and friable bladder mucosa. Patient is scheduled to undergo cystoscopy with Dr. Villareal at the end of next month. -Devlin catheter still in place, monitor I&O's (10) Sacral pressure sore: Non-blanching sacral erythema present; however, no open wound was seen on examination. -Wound care consult placed, appreciate their input/recommendations. (11) History of DVT (deep vein thrombosis): (12) History of pulmonary embolism: (13) S/P IVC filter: As per prior provider Not currently on anticoagulation therapy d/t hx of radiation-induced cystitis per chart review. -Patient placed on aspirin 81mg daily and atorvastatin 40mg daily per Dr. Marti's recommendation given patient's hx. 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 Had received multiple rounds of radiation therapy for prostate cancer many years ago. -Patient follows with [facility] [Dr. Xavi Gramajo] in the outpatient setting. He is scheduled to return to the heme/onc clinic in March. (17) Chronic anemia: Patient did meet w/ Dr. Xavi Gramajo [[facility]] on 12/15/23 for f/u after his most recent hospitalization. Vit B12, folic acid, ferritin and iron panel were conducted at that time. All of those labs came back w/in normal ranges, therefore he did not require intravenous iron therapy. As per above, he is scheduled to return to the heme/onc clinic in March. -Continue [employer] ferrous sulfate, vit B12 (18) Stage 3 chronic kidney disease: Creatinine at baseline -Monitor (19) Asthma: (20) COPD (chronic obstructive pulmonary disease): -Continue Trelegy, PRN albuterol inhaler -No evidence of acute exacerbation (21) Mild cognitive impairment: (22) Tremor observed on examination: -Monitor for any signs of delirium during hospital stay. Will need follow-up with neurology on discharge (23) GERD (gastroesophageal reflux disease): -Continue PPI DVT Px SCDs Code Status: Full Code Disposition SNF today Total Time Total Time Spent Total Time Spent (In Minutes): 58 minutes Discharge Plan Discharge Items Patient Disposition: Transfer [facility] Fac Reason For Visit: UNRESPONSIVE EPISODE Discharge Diagnosis: Syncope Orthostatic hypotension Multiple falls Oral thrush Ambulatory dysfunction H/O Adrenal insufficiency Mild cognitive impairment Activity: Per Instructions section Exercise/Sports: Gradually increase as tolerated Non-emergency contact: Primary Care Provider, Surgeon, Rn Examiner and Urologist Call non-emergency contact if: you have any medication questions, your symptoms worsen, your pain is concerning for you and you have a fever Follow-up/Referrals: Deondre Hill MD [Primary Care Provider] - Diet: Regular Addtl Attending Provider Instructions: Follow-up with your primary care physician Dr. Hill in 1 week upon discharge from the facility Follow-up with your oromaxillary surgeon Dr. Morales as recommended Follow-up with your lock assembler Dr. Valladares in 3-4 weeks Follow-up with your urologist Dr. Villareal for outpatient cystoscopy as recommended. Follow-up with your ichthyology teacher as recommended for management of your adrenal insufficiency --Continue thigh length compression stockings --Do not treat Supine Hypertension due to significant orthostatic hypotension. --Complete the nystatin course for oral thrush as prescribed Seek immediate medical attention if your symptoms reoccur or worsen Please take all medications as instructed on discharge list below. Please call if you have any questions or problems. You can reach a [facility] hospitalist on duty at [facility] 24 hours a day by calling [phone] Pending Studies at Discharge: No Stand-Alone Forms: My [facility] Skilled Items Patient informed of condition?: Yes DNR: No Discharge Level of Care: Skilled Communicable Disease: No Discharge Prognosis: Stable Lines: None Urinary Catheter: Yes Medications and DC Order Prescriptions: New nystatin 100,000 unit/mL Suspension 5 ml PO QID 9 Days Qty: 180 0RF aspirin 81 mg Tablet,Delayed Release (Dr/Ec) 81 mg PO DAILY Qty: 30 0RF magnesium chloride [Mag 64] 64 mg Tablet,Delayed Release (Dr/Ec) 64 mg PO BID Qty: 30 0RF HurriCaine 20 % Gel 1 applic MT QID PRN (Reason: mouth irritation) Qty: 28.4 0RF hydrocortisone [Cortef] 10 mg Tablet 10 mg PO BID Qty: 60 0RF fludrocortisone 0.1 mg Tablet 0.1 mg PO QAM Qty: 30 0RF Continued epinephrine 0.3 mg/0.3 mL auto-injector 0.3 mg IM DIRECTED PRN (Reason: anaphylaxis) fluticasone propionate 50 mcg/actuation spray,suspension 2 spray INTRANASAL DAILY Trelegy Ellipta 200-62.5-25 mcg blister with device 1 inh INHALATION QPM ascorbic acid (vitamin C) [Vitamin C] 1,000 mg Tablet 1,000 mg PO QAM ferrous sulfate 325 mg (65 mg iron) tablet,delayed release (DR/EC) 325 mg PO QAM acetaminophen [Tylenol] 325 mg Tablet 650 mg PO Q4H PRN (Reason: PAIN/FEVER) sennosides-docusate sodium [Senna Plus] 8.6-50 mg Tablet 1 tab-cap PO DAILY PRN (Reason: Constipation) omeprazole 20 mg capsule,delayed release(DR/EC) 20 mg PO QAM multivit with min-folic acid [Multivitamin Gummies] 200 mcg Tablet,Chewable 1 tab PO QAM cholecalciferol (vitamin D3) 125 mcg (5,000 unit) Tablet 125 mcg PO QAM albuterol sulfate 90 mcg/actuation HFA aerosol inhaler 2 puff INHALATION Q6 PRN (Reason: Shortness Of Breath Or Wheezing) cyanocobalamin (vitamin B-12) [Vitamin B-12] 1,000 mcg Tablet 1,000 mcg PO QAM sulfamethoxazole-trimethoprim 800-160 mg tablet 1 tab PO 3XWK Rx Instructions: MON/WED/FRI vitamin E 400 unit Tablet 45 mg PO QAM sertraline 25 mg tablet 25 mg PO QPM Rx Instructions: Pt recently started medication 01/02/24 Changed midodrine 2.5 mg tablet 5 mg PO TID Qty: 0 0RF Rx Instructions: 8:00AM, 12:00PM AND 4:00PM Held donepezil 10 mg tablet 10 mg PO QAM Hold Instructions: Until further recommendations from your primary care physician memantine 10 mg tablet 10 mg PO BIDM Hold Instructions: Until further recommendations from your primary care physician prednisone 10 mg tablet 10 mg PO QAM Hold Instructions: Until further recommendations from your primary care physician Discharge Orders: Discharge Order (Routine); Ordered 01/17/24 Ordered By: Matt Gongora Admission Data Admit Date/Time: 01/04/24 15:04 Attending Provider: Matt Gongora Admit Provider: Evangelist Marti Primary Care Provider: Deondre Hill Other Providers: Ellen Hall; Evangelist Marti; Apolinar Morales; [facility]; [place]; Jeny Leyva; Roshan Valladares; Opal Mazariegos; Bolivar Wren; Suha Lau
== END 2024-01-17 13:47 | DRG 312 ==
LOC: ED 09:46 → 2W 15:04 → SUATTDRO 15:04 → 2W 16:05

== ENCOUNTER 2024-05-31 04:02 | Inpatient (IN) ==
[2024-05-31] MEDS: ACETAMINOPHEN 1,000 MG/100 ML VIAL IV STA (04:36)
[2024-05-31] MEDS: SODIUM CHLORIDE 0.9% 1,000 ML IV ONE (04:41)
[2024-05-31] MEDS: cefTRIAXone SODIUM 2,000 MG/50 ML BAG IV STA (04:43)
[2024-05-31 04:51] LABS: Basophils # (auto) 0.02 K/uL (0.00-0.20); Basophils % (auto) 0.1 %; Hematocrit (blood only) 46.3 % (42.0-52.0); Hemoglobin 15.6 g/dl (14.0-18.0); Immature Granulocytes # (auto) 0.08 K/uL (0.01-0.20); Immature Granulocytes % (auto) 0.5 %; Lymphocytes # (auto) 1.68 K/uL (1.20-3.40); Lymphocytes % (auto) 9.5 %; Mean Corpuscular Hemoglobin 29.9 pg (25.0-34.0); Mean Corpuscular Hgb Conc 33.7 g/dL (32.0-36.0); Mean Corpuscular Volume 88.7 fL (80.0-100.0); Mean Platelet Volume 9.2 fL (9.4-12.4); Monocytes % (auto) 6.2 %; Neutrophils # (auto) 14.77 K/uL (1.40-6.50); Neutrophils % (auto) 83.7 %; Platelet Count 222 K/uL (130-400); RDW Standard Deviation 45.7 fL (36.4-46.3); Red Blood Count 5.22 M/uL (4.70-6.10); White Blood Count 17.65 K/ul (4.8-10.8)
[2024-05-31 04:59] LABS: Alanine Aminotransferase 13 U/L (7-52); Albumin Globulin Ratio 1.4 (0.9-2); Albumin Level 4.1 gm/dl (3.4-5.0); Alkaline Phosphatase 73 U/L (34-104); Anion Gap 14 (3-11); Aspartate Aminotransferase 18 U/L (13-39); BUN Creatinine Ratio 16.1 (10-20); Bilirubin,Total 1.2 mg/dl (0.2-1.0); Blood Urea Nitrogen 23 mg/dl (6-23); Carbon Dioxide 27 mmol/L (21-32); Chloride 98 mmol/L (98-107); Glucose 103 mg/dl (70-99(Fasting)); Potassium 3.6 mmol/L (3.5-5.1); Sodium 139 mmol/L (136-145); Total Protein 7.1 gm/dl (6.0-8.3)
[2024-05-31] MEDS: SODIUM CHLORIDE 0.9% 1,000 ML IV SCH ×2 (05:00→06:37)
[2024-05-31 05:08] LABS: Partial Thromboplastin Time 27 Seconds (21-31); Prothrombin Time 11.3 Seconds (9.0-12.0)
[2024-05-31 05:28] LABS: Influenza A virus by PCR Negative (Neg); Influenza B virus by PCR Negative (Neg); RSV by PCR Negative (Neg); SARS CoV2 RNA(COVID-19) Ceph NEGATIVE (Negative)
[2024-05-31] MEDS ORDERED: VANCOMYCIN CONSULT ACTIVE PRN (06:07)
[2024-05-31] MEDS: VANCOMYCIN HCL 2,000 MG in SODIUM CHLORIDE 0.9% 500 ML IV STA (06:37)
--- NOTE | 2024-05-31 06:45 | XRay Report ---
XR chest 1V portable CLINICAL HISTORY: trauma COMPARISON STUDY: Chest CT October 10, 2023. Chest radiograph January 04, 2024. FINDINGS: No pneumothorax or pleural effusion. Opacity along the left heart border favors atelectasis . Cardiomegaly is unchanged. Pulmonary vascularity is normal. There is no consolidation to suggest pn eumonia. IMPRESSION: 1. No pneumothorax. 2. Opacity along the left heart border which favors atelectasis. ACT 112: Negative or not required by law. Electronically signed by: Boris Keys M.D. 05/31/2024 6:43 AM
[2024-05-31] MEDS: PIPERACILLIN/TAZOBACTAM 4.5 GM/100 ML BAG IV STA (06:49)
[2024-05-31] MEDS: HYDROCORTISONE SOD SUCCINATE 100 MG/2 ML VIAL IV STA (06:49)
--- NOTE | 2024-05-31 06:54 | XRay Report ---
XR hip RT min 2V CLINICAL HISTORY: R hip pain, fall TECHNIQUE: 2 views of the right hip were obtained. Comparison: None available at the time of this dictation. FINDINGS: There is no evidence of an acute fracture. Degenerative changes are seen in the hip joint. Vascular c alcifications are noted. IMPRESSION: Degenerative changes without evidence of acute abnormality. ACT 112: Negative or not required by law. Electronically signed by: Alonso Fay M.D. 05/31/2024 6:53 AM
[2024-05-31] MEDS: Patient's HEIGHT &/or WEIGHT Needed STA (07:41)
--- NOTE | 2024-05-31 08:02 | History & Physical Report ---
Date of Service May 31, 2024 Assessment & Plan (1) Severe sepsis: Plan: 78-year-old male with past medical history significant for adrenal insufficiency on chronic steroids, bronchial asthma/COPD, obstructive sleep apnea, history of DVT/PE s/p IVC filter no longer on anticoagulation due to bleeding issues, bladder cancer s/p surgery off of Keytruda secondary to development of myocarditis, prostate cancer s/p radiation therapy, valvular heart disease ,mod erate aortic stenosis, mild aortic regurgitation, hypertension, orthostatic hypotension, chronic anemia, mild cognitive impairment and dementia, ambulatory dysfunction ambulates with a walker, urinary incontinence, currently on chronic Devlin, chronic venous insufficiency, CKD stage III who lives at home with his was brought in because he fell at home last night and in the ER was spiking temperatures and has leukocytosis and getting admitted for possible urosepsis. states patient is getting confused for last 2 weeks. She thought of UTI as urine was foul-smelling but outpatient urine cultures were negative. Last night he could not eat much. When the checked him in the night she y found him on the floor. Patient states he did not lose consciousness. His Devlin is changed in the ER. He was tachycardic and spiking temperatures. Received 2 L of fluids and Rocephin in the ER. Patient knows that he is in the hospital. Can tell his name. Can tell his date of . Says he is not good with the current dates. Denies any headache. Denies dizziness. No blurred vision. No runny nose or sore throat. Has occasional cough. Denies chest pain. Denies shortness of breath. Denies nausea. Denies abdominal pain. Denies diarrhea or constipation. Currently hemodynamics are okay. 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 Patient was placed on prednisone taper And currently back to his 10 milligram daily his dose for adrenal insufficiency Moderate aortic stenosis Monitor for volume overload Orthostatic hypotension Seems to be Both on Florinef and midodrine Verify the medications History of DVT and PE Not on anticoagulation because of bleeding history -radiation-induced cystitis Status post IVC filter History of prostate cancer Received radiation treatment Developed radiation induced cystitis On chronic Devlin Frequent UTIs and on Bactrim prophylaxis Bactrim will be held currently while patient getting IV antibiotics 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 Newalla's disease Follows with endocrinology As per [facility] he is on prednisone 10 mg daily But states he is both on prednisone and also hydrocortisone Need to verify Currently on stress dose IV hydrocortisone Asthma/COPD Continue home inhalers Obstructive sleep apnea. Seems not using CPAP as he was in and out of the hospitals and assisted living Following with the sleep at the [facility] and reported to them that his sleep is worse with CPAP but was recommended to use CPAP during all all periods of s leep Seems a new CPAP machine was ordered Will order CPAP while in the hospital nightly Chronic anemia On iron supplements Hemoglobin 15.6 Mild cognitive impairment and dementia Monitor for delirium Ambulatory dysfunction Ambulates with walker PT OT when stable VIOLETA on CKD stage III Present with creatinine 1.4 Baseline seems around 1 Getting fluids Avoid nephrotoxic agents Follow repeat labs History of hypomagnesia Continue magnesium supplements History of hematuria We will monitor Immunosuppression due to chronic steroid use Close monitor GERD On PPI DVT prophylaxis Currently placed on heparin subcu Monitor for any bleeding Disposition Telemetry Full code. History of Present Illness Chief Complaint: Sepsis Primary Care Provider: Deondre Hill MD 78-year-old male with past medical history significant for adrenal insufficiency on chronic steroids, bronchial asthma/COPD, obstructive sleep apnea, history of DVT/PE s/p IVC filter no longer on anticoagulation due to bleeding issues, bladder cancer s/p surgery off of Keytruda secondary to development of myocarditis, prostate cancer s/p radiation therapy, valvular heart disease ,moderate aortic stenosis, mild aortic regurgitation, hypertension, orthostatic hypotension, chronic anemia, mild cognitive impairment and dementia, ambulatory dysfunction ambulates with a walker, urinary incontinence, currently on chronic Devlin, chronic venous insufficiency, CKD stage III who lives at home with his was brought in because he fell at home last night and in the ER was spiking temperatures and has leukocytosis and getting admitted for possible urosepsis. states patient is getting confused for last 2 weeks. She thought of UTI as urine was foul-smelling but outpatient urine cultures were negative. Last night he could not eat much. When the checked him in the night she y found him on the floor. Patient states he did not lose consciousness. His Devlin is changed in the ER. He was tachycardic and spiking temperatures. Received 2 L of fluids and Rocephin in the ER. Patient knows that he is in the hospital. Can tell his name. Can tell his date of . Says he is not good with the current dates. Denies any headache. Denies dizziness. No blurred vision. No runny nose or sore throat. Has occasional cough. Denies chest pain. Denies shortness of breath. Denies nausea. Denies abdominal pain. Denies diarrhea or constipation. Currently hemodynamics are okay. Past medical history. As mentioned above Past surgical history. Cataract surgery. Removal of appendix. Social history. . No smoking. No alcohol use. No drug use. Family history. Brother had prostate cancer. Father had prostate cancer. Mother had cancer. Allergies Allergy/AdvReac Type Severity Reaction Status Date / Time Iodinated Contrast Media Allergy Severe LOVERSOL---CARDIAC Verified 01/04/24 15:[address] CONTRAST clindamycin Allergy Intermediate Rash Verified 01/04/24 15:42 chocolate flavor AdvReac Severe DIARRHEA/ Verified 01/04/24 15:42 Cannot take, interacts w/ medications. cranberry AdvReac Severe Cannot Verified 01/04/24 15:42 take, interacts w/ medications. pembrolizumab [From ICONIC] AdvReac Intermediate myocarditis Verified 01/04/24 15:42 Home Medications Medication Instructions Recorded Confirmed Type Senna-C 1 tab PO DAILY PRN Constipation 05/31/24 05/31/24 History albuterol sulfate 90 mcg/actuation 2 puff inhalation Q4H PRN 05/31/24 05/31/24 History aerosol inhaler Shortness Of Breath Or Wheezing ascorbic acid (vitamin C) 1,000 mg 1,000 mg PO DAILY 05/31/24 05/31/24 History tablet aspirin 81 mg tablet,delayed 81 mg PO DAILY 05/31/24 05/31/24 History release cholecalciferol (vitamin D3) 125 125 mcg PO DAILY 05/31/24 05/31/24 History mcg (5,000 unit) tablet (Vitamin D3) cyanocobalamin (vitamin B-12) 1,000 mcg PO DAILY 05/31/24 05/31/24 History 1,000 mcg tablet epinephrine 0.3 mg/0.3 mL 0.3 mg IM UD PRN Anaphylaxis 05/31/24 05/31/24 History injection, auto-injector ferrous sulfate 325 mg (65 mg 325 mg PO DAILY 05/31/24 05/31/24 History iron) tablet,delayed release fludrocortisone 0.1 mg tablet 0.1 mg PO DAILY 05/31/24 05/31/24 History fluticasone fur. 200 mcg-umeclid 1 inh inhalation DAILY 05/31/24 05/31/24 History 62.5 mcg-vilant 25 mcg inhalat.powder (Trelegy Ellipta) hydrocortisone 10 mg tablet 10 mg PO BID 05/31/24 05/31/24 History (Cortef) magnesium chloride 64 mg 64 mg PO BID 05/31/24 05/31/24 History (magnesium chloride) tablet,delayed release memantine 5 mg tablet 5 mg PO DAILY 05/31/24 05/31/24 History midodrine 5 mg tablet 5 mg PO UD 05/31/24 05/31/24 History multivitamin with minerals-folic 1 tab PO DAILY 05/31/24 05/31/24 History acid 200 mcg chewable tablet (Multivitamin Gummies) omeprazole 20 mg capsule,delayed 20 mg PO DAILY 05/31/24 05/31/24 History release prednisone 10 mg tablet 10 mg PO DAILY 05/31/24 05/31/24 History sertraline 25 mg tablet 25 mg PO DAILY 05/31/24 05/31/24 History solifenacin 5 mg tablet 5 mg PO DAILY 05/31/24 05/31/24 History sulfamethoxazole 800 1 tab PO UD 05/31/24 05/31/24 History mg-trimethoprim 160 mg tablet Past Med/Surg History Problem List (Updated 05/31/24 @ 08:09 by Curtis New MD) Severe sepsis Syncope (Acute) Ptosis (Acute) Weakness (Acute) Dental root caries Fracture of multiple teeth Sacral pressure sore History of hematuria Chronic anemia GERD (gastroesophageal reflux disease) Tremor observed on examination Mild cognitive impairment COPD (chronic obstructive pulmonary disease) Asthma Elevated white blood cell count Acute oral pain History of myocarditis History of prostate cancer History of bladder cancer Immunosuppression due to chronic steroid use History of orthostatic hypotension Urinary incontinence Episode of unresponsiveness Hx of prostatic malignancy ~ 2013- s/p Lupron and XRT Elevated lactic acid level (Acute) Non-ST elevation [place] (NSTEMI) (Acute) Acute UTI (urinary tract infection) (Acute) Ambulatory dysfunction (Acute) Generalized weakness (Acute) Myocarditis Dementia Elevated liver function tests Weakness Elevated troponin (Acute) Acute blood loss anemia Primary bladder malignant neoplasm Hematuria (Acute) Urinary frequency Acute middle ear effusion (Acute) Fall (Acute) Cerumen impaction Orthostatic hypotension Orthostatic lightheadedness History of acute renal failure SOB (shortness of breath) (Acute) Coagulopathy (Acute) Acute urinary retention (Acute) Anemia (Acute) Hematuria (Acute) Dyspnea Preprocedural cardiovascular examination performed Urethral stricture Hematuria Encounter for pre-operative examination Incontinence Hx of blood clots Heart attack History of back problems Tongue discoloration Coated tongue nursing home current use of anticoagulant (Chronic) Prostate cancer DVT prophylaxis Asthma AMS (altered mental status) Cellulitis (Acute) Dietary counseling and surveillance Obesity (Chronic) Obstructive sleep apnea (Acute) Adrenal insufficiency (Acute 06/04/14) Bladder cancer (Acute) S/P IVC filter Weakness (Acute) Mild cognitive impairment, so stated Anemia (Acute) (06/25/23)to start receiving iron infusions Prostate cancer (12/22/13) "Positive family history of prostate cancer Rising PSA to 6.54 Status post ultrasound-guided biopsies 12/22/2013 revealing adenocarcinoma [place] 3+4 Status post TURP 04/23/2014 benign tissue Status post repeat biopsy 07/19/2015 3+3, and 3+4 4+3 Status post repeat biopsy 03/06/2016 3+4, 4+3 and 4+4 Initiation of hormonal suppression 07/21/2016 with Lupron 30 mg. Plan for 18 months of hormonal suppression Status post completion of radiation therapy 10/09/2016 received 8040 cGy" On 05/20/16 11:31 Hilda Montemayor wrote "Positive family history of prostate cancer Rising PSA to 6.54 Status post ultrasound-guided biopsies 12/22/2013 revealing adenocarcinoma [place] 3+4 Status post TURP 04/23/2014 benign tissue Status post repeat biopsy 07/19/2015 3+3, and 3+4 4+3 Status post repeat biopsy 03/06/2016 3+4, 4+3 and 4+4" DVT (deep venous thrombosis) Stage 3 chronic kidney disease (Acute) History of pulmonary embolism hx "many years ago" unknown etiology History of DVT (deep vein thrombosis) hx "many years ago" unknown etiology acute on chronic DVT during 12/2022 [facility] admission- Coumadin d/c'ed due to anemia and hematuria; IVC filter placed 12/28/22 Venous insufficiency (chronic) (peripheral) (Acute) COPD (chronic obstructive pulmonary disease) (Chronic) well controlled. 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 no surgery needed. Newalla's disease follows with Endocrinology [facility] on hydrocortisone Chronic steroid use Sleep apnea Cpap Cardiac arrest hx r/t IV Contrast Dye "many years ago" Adrenal insufficiency Allergic rhinitis Asthma (10/03/11) well controlled. Benign prostatic hyperplasia Contrast media allergy Hiatal hernia Surgical History S/P cataract extraction History of right cataract extraction History of colonoscopy H/O sinus surgery History of appendectomy S/P TURP (status post transurethral resection of prostate) Status post cystoscopy (11/07/13) Family History Father Prostate cancer Brother Prostate cancer Mother Thyroid cancer Cancer Other No family history of adverse response to anesthesia Social History Smoking Status: Never smoker Tobacco Type: Cigarettes Second Hand Exposure: No; Do You Dip or Chew Tobacco: No; Hx Alcohol Use: Yes Alcohol type: beer Alcohol Intake Frequency: Monthly or Less Hx Substance Use: No Preferred Language: Greek Communication Ability: Effective Visual Impairment: Limited Hearing Ability: Normal Civil Litigation Attorney Required: No Beliefs That Will Affect Care: None marital status: Current Living Situation: Spouse Current Living Situation Comment: at home with current occupational status: retired How many Children do You have: 0 Feels Safe at Home: Yes Diet: regular during the past year weight has: decreased > 10 lbs Seatbelt Use: always Do you think of yourself as: straight/heterosexual Gender Identity: Male Assistive Devices: Bedside Commode, Hospital Bed and Walker Review of Systems Review of Systems: All systems reviewed & are unremarkable except as noted in HPI & below Physical Exam Physical Exam: General- Not in acute distress Head- atraumatic Eyes- PERRL. ENT- oropharynx clear Neck- supple, no JVD. Lungs- clear to auscultation no wheezing or crackles Heart- regular rhythm;Tachycardia, ESM, no gallop Abdomen- normal bowel sounds, soft, nontender, no distension. Extremities- no pretibial edema, no erythema seen. Neuro- alert, oriented x 2; PERRL, no facial palsy; no dysarthria; moves extremities Results & Data Results & Data Vital Signs (Past 12 Hours) Vital Signs Temp Pulse Pulse Resp BP Pulse Ox O2 Del Method 05/31/24 06:03 37.3 C 102 H 16 115/64 96 Room Air 05/31/24 05:16 38.9 C H 107 H 18 94/64 L 93 Room Air 05/31/24 04:15 120 H 05/31/24 04:15 38.9 C H 120 H 22 93 Room Air Diagnostic Findings Laboratory Results WBC 17.65 K/ul (4.8-10.8) H 05/31/24 04:15 RBC 5.22 M/uL (4.70-6.10) 05/31/24 04:15 Hgb 15.6 g/dl (14.0-18.0) 05/31/24 04:15 Hct 46.3 % (42.0-52.0) 05/31/24 04:15 MCV 88.7 fL (80.0-100.0) 05/31/24 04:15 MCH 29.9 pg (25.0-34.0) 05/31/24 04:15 MCHC 33.7 g/dL (32.0-36.0) 05/31/24 04:15 RDW Std Deviation 45.7 fL (36.4-46.3) 05/31/24 04:15 RDW Coeff of Robert 14.0 % (11.5-14.5) 05/31/24 04:15 Plt Count 222 K/uL (130-400) 05/31/24 04:15 MPV 9.2 fL (9.4-12.4) L 05/31/24 04:15 Immature Gran % (Auto) 0.5 % 05/31/24 04:15 Neut % (Auto) 83.7 % 05/31/24 04:15 Lymph % (Auto) 9.5 % 05/31/24 04:15 [place] % (Auto) 6.2 % 05/31/24 04:15 Eos % (Auto) 0.0 % 05/31/24 04:15 Baso % (Auto) 0.1 % 05/31/24 04:15 Neut # (Auto) 14.77 K/uL (1.40-6.50) H 05/31/24 04:15 Lymph # (Auto) 1.68 K/uL (1.20-3.40) 05/31/24 04:15 [place] # (Auto) 1.10 K/uL (0.11-0.59) H 05/31/24 04:15 Eos # (Auto) 0.00 K/uL (0.00-0.50) 05/31/24 04:15 Baso # (Auto) 0.02 K/uL (0.00-0.20) 05/31/24 04:15 Immature Gran # (Auto) 0.08 K/uL (0.01-0.20) 05/31/24 04:15 PT 11.3 Seconds (9.0-12.0) 05/31/24 04:15 INR 1.0 (0.9-1.1) 05/31/24 04:15 APTT 27 Seconds (21-31) 05/31/24 04:15 PTT Ratio 1.0 05/31/24 04:15 Sodium 139 mmol/L (136-145) 05/31/24 04:15 Potassium 3.6 mmol/L (3.5-5.1) 05/31/24 04:15 Chloride 98 mmol/L (98-107) 05/31/24 04:15 Carbon Dioxide 27 mmol/L (21-32) 05/31/24 04:15 Anion Gap 14 (3-11) H 05/31/24 04:15 BUN 23 mg/dl (6-23) 05/31/24 04:15 Creatinine 1.43 mg/dl (0.6-1.4) H 05/31/24 04:15 Est Cr Clr Drug Dosing Not Reportable 05/31/24 04:15 eGFR 50.47 05/31/24 04:15 BUN/Creatinine Ratio 16.1 (10-20) 05/31/24 04:15 Glucose 103 mg/dl (70-99(Fasting)) H 05/31/24 04:15 Lactate 1.9 mmol/L (0.4-2.0) 05/31/24 06:07 Calcium 9.0 mg/dl (8.6-10.3) 05/31/24 04:15 Total Bilirubin 1.2 mg/dl (0.2-1.0) H 05/31/24 04:15 AST 18 U/L (13-39) 05/31/24 04:15 ALT 13 U/L (7-52) 05/31/24 04:15 Alkaline Phosphatase 73 U/L (34-104) 05/31/24 04:15 Total Protein 7.1 gm/dl (6.0-8.3) 05/31/24 04:15 Albumin 4.1 gm/dl (3.4-5.0) 05/31/24 04:15 Globulin 3.0 gm/dl (2.5-4.0) 05/31/24 04:15 Albumin/Globulin Ratio 1.4 (0.9-2) 05/31/24 04:15 Procalcitonin 0.70 ng/ml (0-0.5) H 05/31/24 04:15 SARS-CoV-2 (PCR) NEGATIVE (Negative) 05/31/24 04:29 Influenza Type A (PCR) Negative (Neg) 05/31/24 04:29 Influenza Type B (PCR) Negative (Neg) 05/31/24 04:29 RSV (RT-PCR) Negative (Neg) 05/31/24 04:29 Impressions Hip X-Ray 05/31/24 04:16 XR hip RT min 2V CLINICAL HISTORY: R hip pain, fall TECHNIQUE: 2 views of the right hip were obtained. Comparison: None available at the time of this dictation. FINDINGS: There is no evidence of an acute fracture. Degenerative changes are seen in the hip joint. Vascular calcifications are noted. IMPRESSION: Degenerative changes without evidence of acute abnormality. ACT 112: Negative or not required by law. Electronically signed by: Alonso Fay M.D. 05/31/2024 6:53 AM Chest X-Ray 05/31/24 04:17 XR chest 1V portable CLINICAL HISTORY: trauma COMPARISON STUDY: Chest CT October 10, 2023. Chest radiograph January 04, 2024. FINDINGS: No pneumothorax or pleural effusion. Opacity along the left heart border favors atelectasis. Cardiomegaly is unchanged. Pulmonary vascularity is normal. There is no consolidation to suggest pneumonia. IMPRESSION: 1. No pneumothorax. 2. Opacity along the left heart border which favors atelectasis. ACT 112: Negative or not required by law. Electronically signed by: Boris Keys M.D. 05/31/2024 6:43 AM ECG Additional Comments: ECG. Sinus tachycardia rate of 121. Biatrial enlargement. Diffuse nonspecific ST and T abnormality. QTc 434. Code Status & VTE Plan VTE Prophylaxis Plan VTE Prophylaxis will be ordered: Yes
--- NOTE | 2024-05-31 08:07 | Electrocardiogram Report ---
Test Reason : Blood Pressure : */* mmHG Vent. Rate : 121 BPM Atrial Rate : 121 BPM P-R Int : 152 ms QRS Dur : 72 ms QT Int : 306 ms P-R-T Axes : 70 59 83 degrees QTcB Int : 434 ms Poor data quality, interpretation may be adversely affected Probable Sinus tachycardia Biatrial enlargement Diffuse Nonspecific ST and T wave abnormality Abnormal ECG When compared with ECG of 04-Jan-2024 09:56, Vent. rate has increased by 52 bpm Significant baseline artifact now present Confirmed by Nain Milner ([id number]) on 05/31/2024 8:07:36 AM Referred By: REFERRED SELF Confirmed By: Nain Milner
[2024-05-31] MEDS ORDERED: NON-FORMULARY MEDICATION (Fluticasone-Umeclidin-Vilanter [Trelegy Ellipta] 200-62.5-25 mcg INH SCH (09:15)
[2024-05-31] MEDS ORDERED: NITROGLYCERIN SL 0.4 MG/TAB TAB SL PRN (09:15)
[2024-05-31] MEDS ORDERED: ALBUTEROL HFA 8 GM INHALER INH PRN (09:15)
[2024-05-31] MEDS ORDERED: EPINEPHrine INJ 1 MG/ML AMP IM PRN (09:42)
[2024-05-31 09:45] LABS: Appearance Urine Turbid (Clear); Bacteria Urine Automated None Seen (None Seen); Bilirubin Urine Negative (Negative); Blood Urine 3+ (Negative); Epithelial Cell Urine Auto 0-2 /hpf (0-2); Glucose Urine UA Negative (Negative); Ketones Urine 1+ (Negative); Leukocyte Esterase Urine 2+ (Negative); Nitrite Urine Negative (Negative); Protein Urine 3+ (Negative); RBC Urine Automated >20 /hpf (0-2); Specific Gravity Urine 1.025 (1.000-1.030); Urobilinogen Urine Negative (Negative); WBC Urine Automated >50 /hpf (0-5)
[2024-05-31 09:51] LABS: Color Urine Amber
--- OUTSIDE RECORDS SUMMARY | 2024-05-31 10:16 | External Medical Summary | Summary of Care ---
Author Name Unknown Organization [facility] Address [address] [place] [address] Phone [phone] Care Team Providers Care Trust And Estates Attorney Name Role Phone Chuy Batista MD Primary Care Provider [phone] Encounter Details Date Type Department Care Team (Latest Contact Info) Description 10/10/2023 1:20 AM EST - 10/10/2023 11:59 PM EST Hospital Encounter Radiology Film File [address] [place] [address] Discharge Disposition: Home - Self Care Allergies Active Allergy Reactions Criticality Noted Date Comments Chocolate Diarrhea 05/14/2023 Chocolate Flavor High 10/09/2023 Other Reaction(s): DIARRHEA/ Cannot take, interacts w/ medications. Clindamycin Hcl 09/24/2005 rash Cranberry 10/20/2023 Iodinated Contrast Media 10/01/2015 Ioversol Other (Please comment) High 08/10/[address] IV DYE Pembrolizumab High 10/10/2023 Other Reaction(s): myocarditis documented as of this encounter (statuses as of 05/12/2024) Medications Medication Sig Dispensed Refills Start Date End Date Status Syringe/Needle, Disp, 25G X 1-1/2" 3 ML MISC To use with injection of hydrocortisone if needed 2 Each 5 08/31/2015 Active Breo Ellipta 200-25 MCG/ACT Inhalation Aerosol Powder Breath Activated (fluticasone furoate-vilanter ol) INHALE 1 PUFF BY MOUTH EVERY DAY 180 Each 3 03/14/2024 Active Fluticasone Propionate 50 MCG/ACT Nasal Suspension (Flonase) SPRAY 2 SPRAYS INTO EACH NOSTRIL IN THE MORNING 16 mL 3 10/17/2022 Active Trelegy Ellipta 200-62.5-25 MCG/ACT Aerosol Powder Breath Activated (Fluticasone-Ume clidinium-Vilant emily) Inhale 1 Puff by mouth every evening. 60 Blister Dosing Unit 11 10/26/2022 Active EpiPen 2-Pedro 0.3 MG/0.3ML Injection Solution Auto-injectorInd ications:Anaphyl axis, sequela USE DIRECTED 1 Each 01/27/2023 Active [...] 2 Tablets by mouth every morning. Active documented as of this encounter (statuses as of 05/12/2024) Active Problems Problem Noted Date Diagnosed Date [...] as of this encounter (statuses as of 05/12/2024) Resolved Problems Problem Noted Date Diagnosed Date [...] as of this encounter (statuses as of 05/12/2024) Immunizations Name Administration Dates Next Due COVID-19 mRNA, LNP-s, No Pre serve, 2-Dose Series ([employer]) 05/30/2021,10/29/2020,10/08/2020 COVID-19, LNP-s, No Preserve , Prosper-sucrose, Ages 12+ (Pfizer) 02/11/2022 Pneumococcal Conjugate Vacc, 13 Valent (Prevnar) 09/24/2020 Pneumococcal Polysaccharide PPV23 (Pneumovax) 07/06/2012 Season Influenza, Quad, PF, Adjuvanted, 65+ Yrs, IM (FLUAD) 06/13/2020 Seasonal Influenza, High Dos e, Trivalent, PF, IM (Fluzone HD) 07/16/2018 Seasonal Influenza, PF, 6 M & above, IM , (FluLaval or Fluzone) 07/10/2018,06/29/2017 Seasonal Influenza, Quadriva lent Hd (Fluzone Hd) 05/29/2022,05/27/2021 Seasonal Influenza, Quadriva lent, No Preserve, IM 10/01/2015 Seasonal Influenza, Trivalen t, Adjuvanted, 65+ YRS, PF, (Fluad) 06/15/2019 documented as of this encounter Social History [...] have money to get more. Patient declined Childcare Answer Date Recorded Do you feel overwhelmed with taking care of a child, family member or friend? No 12/27/2023 Does your family need help f inding childcare? (Household - for ages 0-17 years) Not on file 12/27/2023 Clothing Answer Date Recorded Have you been unable to get clothing when it was really needed? No 12/27/2023 Is your family able to get c lothes or diapers when needed? (Household - for ages 0-17 years) Not on file 12/27/2023 Personal Safety Answer Date Recorded Do you feel unsafe or have concerns for your saf ety? No 12/27/2023 Do you have concerns for you r family's safety? (Household - for ages 0-17 years) Not on file 12/27/2023 Utilities Answer Date Recorded Do you have trouble paying y our heating, water, or electric bill? No 12/27/2023 Is your family able to pay t he heat, water, or electric bill? (Household - for ages 0-17 years) Not on file 12/27/2023 Does your family have access to good internet? (Household - for ages 0-17 years) Not on file 12/27/2023 Employment Status Answer Date Recorded Are you unemployed or without regular income? No 12/27/2023 Does the household have a re gular source of income? (Household - for ages 0-17 years) Not on file 12/27/2023 Social Connections Answer Date Recorded How often do you feel lonely or isolated from th ose around you? Never 12/27/2023 Financial Resource Strain Answer Date R ecorded Do you have any trouble payi ng for your medications, or do you think you might in the future? No 12/27/2023 Does your family have troubl e paying for medicine? (Household - for ages 0-17 years) Not on file 12/27/2023 Transportation Needs Answer Date Record ed READ ONLY Do you have troubl e getting a ride to medical visits or work? Never True 12/27/2023 Does your family have a hard time getting a ride to doctors visits? (Household - for ages 0-17 years) Not on file 12/27/2023 Has lack of transportation k ept you from medical appointments, meetings, work, or from getting things needed for daily living? Check all that apply. (Adult - for ages 18 years and over) Not on file 12/27/2023 Do you (or your family) have trouble finding or paying for a ride (transportation)? (Household - for ages 0-17 years) Not on file 12/27/2023 Housing Stability Answer Date Recorded Do you currently live in a s helter or have no steady place to sleep at night? No 12/27/2023 READ ONLY Do you think you a re at risk of becoming homeless? No 12/27/2023 Does your family worry about paying for your home or becoming homeless? (Household - for ages 0-17 years) Not on file 0 12/27/2023 Are you homeless or worried that you might be in the future? (Adult - for ages 18 years and over) Not on file Are you (or your family) tk eless or worried that you might be in the future? (Household - for ages 0-17 years) Not on file Food Insecurity Answer Date Recorded Do you need food for this week? No 12/27/2023 Are you able to get enough f ood for your family? (Household - for ages 0-17 years) Not on file 12/27/2023 Does your family need food t his week? (Household - for ages 0-17 years) Not on file 12/27/2023 Do you always have enough fo od for your family? (Household - for ages 0-17 years) Not on file 12/27/2023 Sex and Gender Information Value Date Recorded [...] Care Team (Late st Contact Info) Description 06/21/2024 2:15 PM EST Office Visit Urology, [facility] [address] [address] Valdemar Prado MD [address] [address] 06/23/2024 11:00 AM EST Office Visit Cardiology, [facility] [address] [address] Zak Rubio DO [address] [place] [address] 06/26/2024 1:00 PM EST Office Visit Neu[facility] [address] [place] [address] Ellie Duncan MD [address] [place] [address] 06/28/2024 2:30 PM EST Office Visit [facility] [address] Dioni Jean-Baptiste DO 132 [facility] [place] [address] 06/30/2024 4:20 PM EST Office Visit Neurology [facility] [address] [place] [address] Ellie Duncan MD [address] [place] [address] 07/25/2024 2:45 PM EST Office Visit Hematology/Oncology [facility] [address] [place] [address] Xavi Gramajo MD [address] [place] [address] 08/28/2024 3:00 PM EST Office Visit Family [facility] [address] [place] [phone] Chuy Batista MD [address], [place] [id number] 09/04/2024 1:00 PM EST Procedure Only Urology, [place] [address] [place] [address] Ernesto Villareal MD [address] [place] [address] 09/14/2024 1:00 PM EST Cardiac Studies Cardiac Studies, [facility] 132 [facility] [place] [id number] Health Maintenance Due Date Last Done Comments Albumin/Creatinine Ratio 1963 DTap/Tdap Vaccines (1 - Tdap) 1964 Adult Wellness Visit 02/01/2020 01/31/2019 COVID-19 Vaccine ( season) 2024 07/22/2022, 07/22/2022, 02/11/2022, Additional history exists CKD PHOS USE SMARTSET 56907 09/11/202408/17, 09/11/2023, 07/14/2021, Additional history exists GFR 10/13/2024 04/12/2024, 10/15, 11/03/2023, Additional history exists Depression Screening 12/26/2024 12/27/2023 CKD HGB USE SMARTSET 47678 04/12/202504/12, 04/12/2024, 12/13/2023, Additional history exists Pneumococcal Vaccine: 65+ Years Completed 09/24/2020, 07/06/2012 Zoster Vaccines Completed 05/09/2023, 01/11/2023 Influenza Vaccine (FLU shot) Completed 01/2024, 05/29/2022, 05/27/2021, Additional history exists HPV (Gardasil) Vaccine Aged Out No lo nger eligible based on patient's age to complete this topic Hepatitis B Vaccine Aged Out No longe r eligible based on patient's age to complete this topic MENINGOCOCCAL (MENACTRA/MENVEO) Aged Out No longer eligible based on patient's age to complete this topic documented as of this encounter Medical Devices Not on filedocumented as of this encounter Procedures Procedure Name Priority Date/Time Associated Diagnosis Comments RADIOLOGY EXAM - CT (IMAGES ONLY, NO REPORT) Routine 10/10/2023 1:20 AM EST documented in this encounter Results * RADIOLOGY EXAM - CT (IMAGES ONLY, NO REPORT) (10/10/2023 1:20 AM EST) 10/10/2023 1:17 AM EST Narrative Scheduling, Silent - 05/11/2024 7:34 PM EDT This is an imaging study not interpreted or resulted by a [facility] or [email or web address] contracted radiologist. Xavi Gramajo MD RAD CT documented in this encounter Advance Directives * Full Code [...] Power of Attor philipp? No Care Teams Trust And Estates Attorney Relationship Specialty Start Date End Date Chuy Batista MD [address] [place] [facility] [place] [address] PCP - General Family Medicine 07/11/14 02/26/24 documented as of this encounter
--- OUTSIDE RECORDS SUMMARY | 2024-05-31 10:16 | External Medical Summary | Summary of Care ---
Author Name Unknown Organization [facility] Address [address] [place] [address] Phone [phone] Care Team Providers Care Sawyer Helper Name Role Phone Damaris Beyer MD Primary Care Provider [phone] Reason for Visit * Reason Onset Date Comments Medication Question 05/30/2024 Encounter Details Date Type Department Care Team (Late st Contact Info) Description 05/30/2024 Telephone [facility] [address] [place] [address] Damaris Beyer MD [address] [place] [address] Medication Question Allergies Active Allergy Reactions Criticality Noted Date Comments Chocolate Diarrhea 05/14/2023 Chocolate Flavor High 10/09/2023 Other Reaction(s): DIARRHEA/ Cannot take, interacts w/ medications. Clindamycin Hcl 09/24/2005 rash Cranberry 10/20/2023 Iodinated Contrast Media 10/01/2015 Ioversol Other (Please comment) High 08/10/[address] IV DYE Pembrolizumab High 10/10/2023 Other Reaction(s): myocarditis documented as of this encounter (statuses as of 05/30/2024) Medications Medication Sig Dispensed Refills Start Date End Date Status Syringe/Needle, Disp, 25G X 1-1/2" 3 ML MISC To use with injection of hydrocortisone if needed 2 Each 5 08/31/2015 Active Breo Ellipta 200-25 MCG/ACT Inhalation Aerosol Powder Breath Activated (fluticasone furoate-vilantero l) INHALE 1 PUFF BY MOUTH EVERY DAY 180 Each 3 03/14/2024 Active Fluticasone Propionate 50 MCG/ACT Nasal Suspension (Flonase) SPRAY 2 SPRAYS INTO EACH NOSTRIL IN THE MORNING 16 mL 3 10/17/2022 Active Trelegy Ellipta 200-62.5-25 MCG/ACT Aerosol Powder Breath Activated (Fluticasone-Umec lidinium-Vilanter ol) Inhale 1 Puff by mouth every evening. 60 Blister Dosing Unit 11 10/26/2022 Active EpiPen 2-Perdo 0.3 MG/0.3ML Injection Solution Auto-injectorIndi cations:Anaphylax is, [...] 2 Tablets by mouth every morning. Active Bisacodyl 10 MG Rectal Suppository (Dulcolax) Administer 1 Suppository into the rectum in the morning. Active polyethylene glycol 3350 119 gram OR POWD Take 119 g by mouth once. Active Omeprazole 20 MG Oral Capsule Delayed Release (PriLOSEC)Indicat ions:Gastroesopha geal reflux disease, unspecified whether esophagitis present Take 1 Capsule by mouth in the morning. 90 Capsule 1 11/12/2023 Active [facility] Wound/Burn Dressing External GelIndications:Pr essure injury of sacral region, stage 2 (HCC) Apply topically to affected area daily. Apply to pressure ulcer of buttocks. 88 mL 3 11/12/2023 Active predniSONE 20 MG Oral Tablet (Deltasone)Indica tions:Urothelial carcinoma of bladder (HCC),Other acute myocarditis TAKE 4 TABLETS BY MOUTH EVERY MORNING WITH FOOD 120 Tablet 1 11/26/2023 Active Additional Information Patient taking differently: 20 mg Oral Daily(AM), TAKE 4 TABLETS BY MOUTH EVERY MORNING WITH FOOD- Currently taking 20mg, Reported on 04/03/2024 ProAir HFA 108 (90 Base) MCG/ACT Inhalation Aerosol Solution Inhale 2 Puffs by mouth as needed. Active B Complex Oral Capsule Take 1 Capsule by mouth in the morning. Active Aspirin 81 MG Oral Tablet Delayed Release (Aspirin 81) Take 1 Tablet by mouth in the morning. Active B-12 1000 MCG Oral Tablet Take by mouth daily. Act anthony Fleet Enema 7-19 GM/118ML Rectal Enema Administer 1 Enema into the rectum as needed for Constipation. Active Fludrocortisone Acetate 50 MCG OR TABS Take 1 Tablet by mouth in the morning. Active Melatonin 3 MG Oral Capsule Take 1 Capsule by mouth at bedtime as needed. Active Magnesium Chloride 64 MG Oral Tablet Take by mouth. Active Sertraline HCl 25 MG Oral Tablet (Zoloft) Take 1 Tablet by mouth at bedtime. Active Gummies 0.18-25 MG Oral Tablet Chewable Take by mouth. Activ e Magnesium Hydroxide 400 MG/5ML Oral Suspension (Milk of Magnesia) Take 30 mL by mouth as needed for Constipation. Active Memantine HCl 5 MG Oral Tablet (Namenda)Indicati ons:MCI (mild cognitive impairment) 5 mg once a day for a week and then 5 mg twice a day 60 Tablet 2 02/01/2024 Active Solifenacin Succinate 5 MG Oral Tablet (VESIcare) Take 1 Tablet by mouth in the morning. 30 Tablet 6 02/28/2024 Active Fludrocortisone Acetate 0.1 MG Oral Tablet (Florinef) Take 1 Tablet by mouth in the morning. 30 Tablet 11 03/07/2024 Active Midodrine HCl 5 MG Oral Tablet (Proamatine)Indic ations:Orthostati c hypotension Take 1 Tablet by mouth 3 times a day. Take at 8 am, noon, 4 pm 270 Tablet 3 03/17/2024 Active Sulfamethoxazole- Trimethoprim 800-160 MG Oral Tablet (Bactrim DS)Indications:Ur othelial carcinoma of bladder (HCC),Other acute myocarditis 1 tablet 3 days a week ( Wednesday, Wednesday, Wednesday). 36 Tablet 03/20/2024 Active Ampicillin 500 MG Oral Capsule Take 1 Capsule by mouth in the morning and 1 Capsule at noon and 1 Capsule in the evening and 1 Capsule before bedtime. 28 Capsule 04/27/2024 Active documented as of this encounter (statuses as of 05/30/2024) Active Problems Problem Noted Date Diagnosed Date [...] as of this encounter (statuses as of 05/30/2024) Resolved Problems Problem Noted Date Diagnosed Date [...] as of this encounter (statuses as of 05/30/2024) Immunizations Name Administration Dates Next Due COVID-19 mRNA, LNP-s, No Pre serve, 2-Dose Series ([employer]) 05/30/2021,10/29/2020,10/08/2020 COVID-19, LNP-s, No Preserve , Prosper-sucrose, Ages 12+ (Pfizer) 02/11/2022 Pneumococcal Conjugate Vacc, 13 Valent (Prevnar) 09/24/2020 Pneumococcal Polysaccharide PPV23 (Pneumovax) 07/06/2012 Season Influenza, Quad, PF, Adjuvanted, 65+ Yrs, IM (FLUAD) 06/13/2020 Seasonal Influenza, High Dos e, Trivalent, PF, IM (Fluzone HD) 04/21/2024,07/16/2018 Seasonal Influenza, PF, 6 M & above, [...] encounter Miscellaneous Notes * Telephone Encounter - Demich, Diana May, iron carrier - 05/30/2024 2:58 PM EDT Pt calling with complaints of UTI symptoms and is requesting a medication be prescribed. Pt did want to schedule an appointment at this time. Call details was not completed because transferred over to nurse at Dr's office. Please advise. Thank you, Diana James [facility] 05/30/2024,2:58 PM documented in this encounter Plan of Treatment Upcoming Encounters Date Type Department Care Team (Late st Contact Info) Description 06/21/2024 2:15 PM EST Office Visit Urology, [facility] [address] [address] Valdemar Prado MD [address] [place] [address] 06/23/2024 11:00 AM EST Office Visit Cardiology, [facility] [address] [place] [address] Zak Rubio, DO [address] [place] [address] 06/28/2024 2:30 PM EST Office Visit Otolaryngology [facility] [address] [address] Doini Jean-Baptiste, DO [address] [place] [address] 06/30/2024 4:20 PM EST Office Visit Neurology [facility] [place] [address] [facility] [place] [address] Ellie Duncan MD [address] [facility] [place] [address] 07/25/2024 2:45 PM EST Office Visit [facility]ematology[facility]On[facility] [address] [facility] [place], [place] [address] Xavi Gramajo MD [address] [facility] [place], [place] [address] 08/28/2024 3:00 PM EST Office Visit Family [facility] [address] [place] [address] Chuy Batista MD [address] [place] [address] 09/04/2024 1:00 PM EST Procedure Only Urology, [place] [address] [place] [address] Ernesto Villareal MD [address], [place] [id number] 09/14/2024 1:00 PM EST Cardiac Studies Cardiac Studies, [facility] [address] [place] [address] Health Maintenance Due Date Last Done Comments Albumin/Creatinine Ratio 1963 DTap/Tdap Vaccines (1 - Tdap) 1964 Adult Wellness Visit 02/01/2020 01/31/2019 COVID-19 Vaccine ( season) 2024 07/22/2022, 07/22/2022, 02/11/2022, Additional history exists CKD PHOS USE SMARTSET 59698 09/11/202408/17, 09/11/2023, 07/14/2021, Additional history exists GFR 10/13/2024 04/12/2024, 10/15, 11/03/2023, Additional history exists Depression Screening 12/26/2024 12/27/2023 CKD HGB USE SMARTSET 99932 04/12/202504/12, 04/12/2024, 12/13/2023, Additional history exists Pneumococcal [...] Power of Attor philipp? No Care Teams Sawyer Helper Relationship Specialty Start Date End Date Damaris Beyer MD [address] [place] [address] PCP - General Internal Medicine 02/27/24 documented as of this encounter
--- OUTSIDE RECORDS SUMMARY | 2024-05-31 10:16 | External Medical Summary | Summary of Care ---
Author Name Unknown Organization [facility] Address [address] [place] [address] Phone [phone] Care Team Providers Care Hydraulics Engineer Name Role Phone Chuy Batista MD Primary Care Provider [phone] Encounter Details Date Type Department Care Team (Latest Contact Info) Description 09/07/2023 4:50 PM EST - 09/07/2023 11:59 PM EST Hospital Encounter Radiology Film File [address] [place] [address] Discharge Disposition: Home - Self [...] Tablet by mouth in the morning. Active documented [...] No 12/27/2023 Does the household have a [facility] source of income? (Household - for ages [...] on file documented as of this encounter Plan of Treatment Upcoming Encounters Date Type Department Care Team (Late st Contact Info) Description 06/21/2024 2:15 PM EST Office Visit Urology, [facility] [address] [facility] [place] [address] Valdemar Prado MD [address] [place] [address] 06/23/2024 11:00 AM EST Office Visit Cardiology, [facility] [address] [facility] [place] [address] Zak Rubio, DO 132 [facility] [address] 06/26/2024 1:00 PM EST Office Visit Neurology [facility] [address] [place] [address] Ellie Duncan MD 200 [facility] [place] [address] 06/28/2024 2:30 PM EST Office Visit Otolaryngology [facility] [address] [facility] [place] [address] Dioni Jean-Baptiste, DO [address] [facility] [place] [address] 06/30/2024 4:20 PM EST Office Visit Neurology [facility] [address] [place] [address] Ellie Duncan MD [address] [place] [address] 07/25/2024 2:45 PM EST Office Visit Hematology/Oncology [facility] [address] [place] [phone] Xavi Gramajo MD [address] [place] [address] 08/28/2024 3:00 PM EST Office Visit [facility] [address] [place] [address] Chuy Batista MD [address], [place] [address] 09/04/2024 1:00 PM EST Procedure Only Urology, [place] [address] [place] [address] Ernesto Villareal MD [address] [place] [address] 09/14/2024 1:00 PM EST Cardiac Studies Cardiac Studies, [facility] [address] [facility] [place] [address] Health Maintenance Due Date Last Done Comments Albumin/Creatinine Ratio 1963 DTap/Tdap Vaccines (1 - Tdap) 1964 Adult Wellness Visit 02/01/2020 01/31/2019 COVID-19 Vaccine ( season) 2024 07/22/2022, 07/22/2022, 02/11/2022, Additional history exists CKD PHOS USE SMARTSET 04559 09/11/202408/17, 09/11/2023, 07/14/2021, Additional history exists GFR 10/13/2024 04/12/2024, 10/15, 11/03/2023, Additional history exists Depression Screening 12/26/2024 12/27/2023 CKD HGB USE SMARTSET 12026 04/12/202504/12, 04/12/2024, 12/13/2023, Additional history exists Pneumococcal [...] - CT (IMAGES ONLY, NO REPORT) Routine 09/07/2023 4:50 PM EST documented in this encounter Results * RADIOLOGY EXAM - CT (IMAGES ONLY, NO REPORT) (09/07/2023 4:50 PM EST) 09/07/2023 4:44 PM EST Narrative Scheduling, Silent - 05/11/2024 7:36 PM EDT This is an imaging study not interpreted or resulted by a [facility] or [facility] radiologist. Xavi Gramajo MD RAD CT [...] Power of Attor philipp? No Care Teams Hydraulics Engineer Relationship Specialty Start Date End Date Chuy Batista MD [address] [place] [address] PCP - General Family Medicine 07/11/14 02/26/24 documented as of this encounter
--- OUTSIDE RECORDS SUMMARY | 2024-05-31 10:16 | External Medical Summary | Summary of Care ---
Author Name Unknown Organization [facility] Address [address] [place] [address] Phone [phone] Care Team Providers Care Compugraph Operator Name Role Phone Damaris Beyer MD Primary Care Provider [phone] Reason for Visit * Reason Onset Date Comments Follow Up 4 month return W ould like the catheter bag to be replaced Medication Administration 04/21/2024 Flu an d/or Pneumo Inj Encounter Details Date Type Department Care Team (Latest Contact Info) Description 04/21/2024 2:40 PM EDT Office Visit [facility] [address] [place] [address] Chuy Batista MD [address] [place] [address] Adrenal insufficiency (HCC)*; Chronic kidney disease, stage 3b (HCC); Prostate cancer (HCC); Urothelial carcinoma of bladder (HCC); Need for prophylactic vaccination and inoculation against influenza Allergies Active Allergy Reactions Criticality Noted Date Comments Chocolate Diarrhea 05/14/2023 Chocolate Flavor High 10/09/2023 Other Reaction(s): DIARRHEA/ Cannot take, interacts w/ medications. Clindamycin Hcl 09/24/2005 rash Cranberry 10/20/2023 Iodinated Contrast Media 10/01/2015 Ioversol Other (Please comment) High 08/10/[address] IV DYE Pembrolizumab High 10/10/2023 Other Reaction(s): myocarditis documented as of this encounter (statuses as of 05/15/2024) Medications Medication Sig Dispensed Refills Start Date [...] Wednesday, Wednesday, Wednesday). 36 Tablet 03/20/2024 Active documented as of this encounter (statuses as of 05/15/2024) Active Problems Problem Noted Date Diagnosed Date [...] as of this encounter (statuses as of 05/15/2024) Resolved Problems Problem Noted Date Diagnosed Date [...] as of this encounter (statuses as of 05/15/2024) Immunizations Name Administration Dates Next Due COVID-19 mRNA, LNP-s, No Pre serve, 2-Dose Series ([employer]) 05/30/2021,10/29/2020,10/08/2020 COVID-19, LNP-s, No Preserve , [...] 12/27/2023 Does the household have a re lar source of income? (Household - for ages [...] Sign Reading Time Taken Comments Blood Pressure 108/70 04/21/2024 2:22 PM EDT Pulse 89 04/21/2024 2:22 PM EDT Temperature 36.5 C (97.7 F) 04/21/2024 2:22 PM ED T Respiratory Rate 16 04/21/2024 2:22 PM EDT Oxygen Saturation 95% 04/21/2024 2:22 PM EDT Inhaled Oxygen Concentration - - Weight 110.7 kg (244 lb) 04/21/2024 2:22 PM EDT Height 190.5 cm (6' 3") 04/21/2024 2:22 PM EDT Body Mass Index 30.5 04/21/2024 2:22 PM EDT documented in this encounter Functional [...] as of this encounter Progress Notes * Chuy Batista MD - 05/15/2024 9:07 PM EDT Subjective: Branden High is a 78 year old male here today for Chief Complaint Patient presents with Follow Up 4 month return Would like the catheter bag to be replaced Medication Administration Flu and/or Pneumo Inj Here for follow up. Would like tubing for catheter bag changed in the clinic today if possible. Agreeable to influenza vac. Is having some improvement in strength and energy. Appetite ok. Past Medical History: Diagnosis Date Adrenal insufficiency [...] [Clindamycin Hcl] rash Cranberry Iodinated Contrast Media Current Outpatient Medications Medication Sig Dispense Refill Syringe/Needle, Disp, 25G X 1-1/2" 3 ML MISC To use with injection of hydrocortisone if needed 2 Each 5 Breo Ellipta 200-25 MCG/ACT Inhalation Aerosol Powder Breath Activated (fluticasone furoate-vilanterol) INHALE 1 PUFF BY MOUTH EVERY DAY 180 Each 3 Fluticasone Propionate 50 MCG/ACT Nasal Suspension (Flonase) SPRAY 2 SPRAYS INTO EACH NOSTRIL IN THE MORNING 16 mL 3 Trelegy Ellipta 200-62.5-25 MCG/ACT Aerosol Powder Breath Activated (Lmrniuyzffq-Agoszlzrznhp-Gunljvrcab) Inhale 1 Puff by mouth every evening. [...] Take 2 Tablets by mouth every morning. Bisacodyl 10 MG Rectal Suppository (Dulcolax) Administer 1 Suppository into the rectum in the morning. polyethylene glycol 3350 119 gram OR POWD Take 119 g by mouth once. Omeprazole 20 MG Oral Capsule Delayed Release (PriLOSEC) Take 1 Capsule by mouth in the morning. 90Capsule 1 [facility] Wound/Burn Dressing External Gel Apply topically to affected area daily. Apply to pressure ulcer of buttocks. 88 mL 3 predniSONE 20 MG Oral Tablet (Deltasone) TAKE 4 TABLETS BY MOUTH EVERY MORNING WITH FOOD (Patient taking differently: Take 1 Tablet by mouth in the morning. TAKE 4 TABLETS BY MOUTH EVERY MORNING WITHFOOD- Currently taking 20mg.) 120 Tablet 1 ProAir HFA 108 (90 Base) MCG/ACT Inhalation Aerosol Solution Inhale 2 Puffs by mouth as needed. B Complex Oral Capsule Take 1 Capsule by mouth in the morning. Aspirin 81 MG Oral Tablet Delayed Release (Aspirin 81) Take 1 Tablet by mouth in the morning. B-12 1000 MCG Oral Tablet Take by mouth daily. Fleet Enema 7-19 GM/118ML Rectal Enema Administer 1 Enema into the rectum as needed for Constipation. Fludrocortisone Acetate 50 MCG OR TABS Take 1 Tablet by mouth in the morning. Magnesium Chloride 64 MG Oral Tablet Take by mouth. Sertraline HCl 25 MG Oral Tablet (Zoloft) Take 1 Tablet by mouth at bedtime. Gummies 0.18-25 MG Oral Tablet Chewable Take by mouth. Magnesium Hydroxide 400 MG/5ML Oral Suspension (Milk of Magnesia) Take 30 mL by mouth as needed forConstipation. Memantine HCl 5 MG Oral Tablet (Namenda) 5 mg once a day for a week and then 5 mg twice a day 60 Tablet 2 Solifenacin Succinate 5 MG Oral Tablet (VESIcare) Take 1 Tablet by mouth in the morning. 30 Tablet 6 Fludrocortisone Acetate 0.1 MG Oral Tablet (Florinef) Take 1 Tablet by mouth in the morning. 30 Tablet 11 Midodrine HCl 5 MG Oral Tablet (Proamatine) Take 1 Tablet by mouth 3 times a day. Take at 8 am, noon, 4 pm 270 Tablet 3 Sulfamethoxazole-Trimethoprim 800-160 MG Oral Tablet (Bactrim DS) 1 tablet 3 days a week ( Wednesday, Wednesday, Wednesday). 36 Tablet 0 Melatonin 3 MG Oral Capsule Take 1 Capsule by mouth at bedtime as needed. (Patient not taking: Reported on 04/03/2024) Ampicillin 500 MG Oral Capsule Take 1 Capsule by mouth in the morning and 1 Capsule at noon and 1 Capsule in the evening and 1 Capsule before bedtime. 28 Capsule 0 No current facility-administered medications for this visit. Objective: BP 108/70 | Pulse 89 | Temp 36.5 C (97.7 F) | Resp 16 | Ht 1.905 m (6' 3") | Wt 110.7 kg (244 lb) | SpO2 95% | BMI 30.50 kg/m | BSA 2.42 m GEN: NAD HEENT: Benign NECK: Supple with no LAD, TM, JVD CHEST: CTA B CV: RRR ABD: Soft, NT/ND, No HSM, NABS EXT: No c,c,e Assessment and Plan: Adrenal insufficiency (HCC) (Primary) -continue current treatment with steroids Chronic kidney disease, stage 3b (HCC) -continue to monitor Prostate cancer (HCC) Urothelial carcinoma of bladder (HCC) -follow up with urology as scheduled. Need for prophylactic vaccination and inoculation against influenza - INFLUENZA VAC., TRIVALENT, HD, PF, 65 AND ABOVE, 0.5 ML IM (FLUZONE HD) Follow Up: Return in about 4 months (around 08/21/2024) for recheck . | For: recheck 35 min with pt and chart review. Chuy Batista MD * Ashely Hanson LPN - 04/21/2024 3:21 PM EDT Pre-Administration Time Out Procedure Performed: Yes Patient Identified (Ask Name/Date of ): Yes Does the patient have a fever greater than 101 degrees today? No Patient allergic to latex? No VFC Stock: No Injection(s) verified: Yes, Injection Name: FLU Verified Side and Site: Yes Verified Shot(s) with Parent(s)/Patient: Yes documented in this encounter Nursing Notes * Ashely Hanson LPN - 04/21/2024 2:29 PM EDT The patient has been properly identified by confirmation of name and date of . Chief Complaint Patient presents with Follow Up 4 month return Would like the catheter bag to be replaced documented in this encounter Plan of Treatment Upcoming Encounters Date Type Department Care Team (Late st Contact Info) Description 06/21/2024 2:15 PM EST Office Visit Urology, [facility] [address] [facility] [place] [address] Valdemar Prado MD [address] [place] [address] 06/23/2024 11:00 AM EST Office Visit Cardiology, [facility] 132 [facility] [place] [address] Zak Rubio, DO [address] [place] [address] 06/26/2024 1:00 PM EST Office Visit Neurology [facility] [address] [place] [address] Ellie Duncan MD 200 [facility] [address] 06/28/2024 2:30 PM EST Office Visit Otolaryngology [facility] [address] [place] [address] Dioni Jean-Baptiste, DO [address] [place] [address] 06/30/2024 4:20 PM EST Office Visit Neurology [facility] [address] [place], [place] [address] Ellie Duncan MD 200 [facility] [place], [place] [address] 07/25/2024 2:45 PM EST Office Visit Hematology/Oncology [facility] [address] [place] [phone] Xavi Gramajo MD [address] [facility] [place] [address] 08/28/2024 3:00 PM EST Office Visit Family [facility] [address] [place] [phone] Chuy Batista MD [address], [place] [phone] 09/04/2024 1:00 PM EST Procedure Only Urology, [facility] [address] [place], [place] [id number] Ernesto Villareal MD [address] [place] [address] 09/14/2024 1:00 PM EST Cardiac Studies Cardiac Studies, [facility] [address] [facility] [place] [address] Health Maintenance Due Date Last Done Comments Albumin/Creatinine Ratio 1963 DTap/Tdap Vaccines (1 - Tdap) 1964 Adult Wellness Visit 02/01/2020 01/31/2019 COVID-19 Vaccine ( season) 2024 07/22/2022, 07/22/2022, 02/11/2022, Additional history exists CKD PHOS USE SMARTSET 43347 09/11/202408/17, 09/11/2023, 07/14/2021, Additional history exists GFR 10/13/2024 04/12/2024, 10/15, 11/03/2023, Additional history exists Depression Screening 12/26/2024 12/27/2023 CKD HGB USE SMARTSET 54639 04/12/202504/12, 04/12/2024, 12/13/2023, Additional history exists Pneumococcal [...] as of this encounter Visit Diagnoses Diagnosis Adrenal insufficiency (HCC)- Primary Glucocorticoid deficiency Chronic kidney disease, stage 3b (HCC) Prostate cancer (HCC) Malignant neoplasm of prostate Urothelial carcinoma of bladder (HCC) Need for prophylactic vaccination and inoculation against influenza documented in this encounter Advance Directives * [...] Power of Attor philipp? No Care Teams Compugraph Operator Relationship Specialty Start Date End Date Damaris Beyer MD [address] [facility] [place] [address] PCP - General Internal Medicine 02/27/24 documented as of this encounter
--- OUTSIDE RECORDS SUMMARY | 2024-05-31 10:16 | External Medical Summary | Summary of Care ---
Author Name Unknown Organization [facility] Address [address] [place] [address] Phone [phone] Care Team Providers Care Leather Softener Name Role Phone Damaris Beyer MD Primary Care Provider [phone] Reason for Visit * Reason Onset Date Comments Medication Question 05/30/2024 Encounter Details Date Type Department Care Team (Late st Contact Info) Description 05/30/2024 Telephone [facility] [address] [place] [address] Damaris Beyer MD [address] [place] [address] Medication Question Allergies Active Allergy [...] the morning. 90 Capsule 1 11/12/2023 Active [facility] Wound/Burn Dressing External GelIndications:Pr essure [...] mRNA, LNP-s, No Pre serve, 2-Dose Series ([employer]) 05/30/2021,10/29/2020,10/08/2020 COVID-19, LNP-s, No Preserve , Prosper-sucrose, [...] encounter Miscellaneous Notes * Telephone Encounter - Maribel Morales LPN - 05/30/2024 3:08 PM EDT Patient and calling in with patient: She stated that patient has OT and PT coming in twice a week. He had PT earlier today and he thinks that patient may have a UTI. Patient is more confused, urine is cloudy and darker in color. Patient also said that he started having groin pain earlier today. Patient had a tatum cath. is asking if a urine specimen order can be placed to check for UTI. She is going to come into the office tomorrow morning and get collection supplies. Please advise, she is asking that message be sent High Priority so it is addressed today. * Telephone Encounter - Diana James PHARM Tech - 05/30/2024 2:58 PM EDT Pt calling with complaints of UTI symptoms and is requesting a medication be prescribed. Pt did want to schedule an appointment at this time. Call details was not completed because transferred over to nurse at Dr's office. Please advise. Thank you, Diana James [facility] Principal Clerk Typist [facility] 05/30/2024,2:58 PM documented in this encounter Plan of Treatment Upcoming Encounters Date Type Department Care Team (Late st Contact Info) Description 06/21/2024 2:15 PM EST Office Visit Urology, [facility] [place] [address] Valdemar Prado MD [address] [place] [address] 06/23/2024 11:00 AM EST Office Visit Cardiology, [facility] [address] [place] [address] Zak Rubio, [address] [place] [address] 06/28/2024 2:30 PM EST Office Visit Otolaryngology [facility] [address] Dioni Jean-Baptiste DO 132 [facility] [place] [address] 06/30/2024 4:20 PM EST Office Visit Neurology [facility] [address] [place] [address] Ellie Duncan MD 200 [facility] [address] 07/25/2024 2:45 PM EST Office Visit Hematology/Oncology [facility] [address] [place], [place] [address] Xavi Gramajo MD 200 [facility] [place] [address] 08/28/2024 3:00 PM EST Office Visit Family Practice, [place] [address] [place] [phone] Chuy Batista MD [address] [place] [address] 09/04/2024 1:00 PM EST Procedure Only Urology, [place] [address] [place] [address] Ernesto Villareal MD [address] [place], [place] [address] 09/14/2024 1:00 PM EST Cardiac Studies Cardiac Studies, [facility] 132 [facility] [place] [address] Health Maintenance Due Date Last Done Comments Albumin/Creatinine Ratio 1963 DTap/Tdap Vaccines (1 - Tdap) 1964 Adult Wellness Visit 02/01/2020 01/31/2019 COVID-19 Vaccine ( season) 2024 07/22/2022, 07/22/2022, 02/11/2022, Additional history exists CKD PHOS USE SMARTSET 57594 09/11/202408/17, 09/11/2023, 07/14/2021, Additional history exists GFR 10/13/2024 04/12/2024, 10/15, 11/03/2023, Additional history exists Depression Screening 12/26/2024 12/27/2023 CKD HGB USE SMARTSET 14733 04/12/202504/12, 04/12/2024, 12/13/2023, Additional history exists Pneumococcal [...] Power of Attor philipp? No Care Teams Leather Softener Relationship Specialty Start Date End Date Damaris Beyer MD [address] [place] [address] PCP - General Internal Medicine 02/27/24 documented as of this encounter
--- OUTSIDE RECORDS SUMMARY | 2024-05-31 10:16 | External Medical Summary | Summary of Care ---
Author Name Unknown Organization [facility] Address [address] [place] [address] Phone [phone] Care Team Providers Care Corporate Director Name Role Phone Chuy Batista MD Primary Care Provider [phone] Encounter Details Date Type Department Care Team (Latest Contact Info) Description 08/19/2023 12:45 PM EST - 08/19/2023 11:59 PM EST Hospital Encounter Radiology [facility] [address] [place] [address] Discharge Disposition: Home - Self [...] UT) Oral Capsule Take by mouth. Active documented as of this encounter (statuses [...] mRNA, LNP-s, No Pre serve, 2-Dose Series ([employer]) 05/30/2021,10/29/2020,10/08/2020 COVID-19, LNP-s, No Preserve , Prosper-sucrose, [...] 06/21/2024 2:15 PM EST Office Visit Urology, [facility] [address] [facility] [place] [address] Valdemar Prado MD [address] [place] [address] 06/23/2024 11:00 AM EST Office Visit Cardiology, [facility] 132 [facility] [place] [address] Zak Rubio, DO [address] [facility] [place] [address] 06/26/2024 1:00 PM EST Office Visit Neurology [facility] [address] [place] [address] Ellie Duncan MD [address] [place] [address] 06/28/2024 2:30 PM EST Office Visit Otolaryngology [facility] [address] [place] [address] Dioni Jean-Baptiste, DO 132 [facility] [place] [address] 06/30/2024 4:20 PM EST Office Visit Neurology [facility] [address] [place] [address] Ellie Duncan MD [address] [place] [address] 07/25/2024 2:45 PM EST Office Visit Hematology/Oncology [facility] [address] [place] [phone] Xavi Gramajo MD [address] [place] [address] 08/28/2024 3:00 PM EST Office Visit [address] [phone] Chuy Batista MD [address] [place] [address] 09/04/2024 1:00 PM EST Procedure Only Urology, [place] [address] [place] [address] Ernesto Villareal MD [address] [place] [address] 09/14/2024 1:00 PM EST Cardiac Studies Cardiac Studies, [facility] [address] [facility] [place] [address] Health Maintenance Due Date Last Done Comments Albumin/Creatinine Ratio 1963 DTap/Tdap Vaccines (1 - Tdap) 1964 Adult Wellness Visit 02/01/2020 01/31/2019 COVID-19 Vaccine ( season) 2024 07/22/2022, 07/22/2022, 02/11/2022, Additional history exists CKD PHOS USE SMARTSET 53620 09/11/202408/17, 09/11/2023, 07/14/2021, Additional history exists GFR 10/13/2024 04/12/2024, 10/15, 11/03/2023, Additional history exists Depression Screening 12/26/2024 12/27/2023 CKD HGB USE SMARTSET 78819 04/12/202504/12, 04/12/2024, 12/13/2023, Additional history exists Pneumococcal [...] - CT (IMAGES ONLY, NO REPORT) Routine 08/19/2023 12:45 PM EST documented in this encounter Results * RADIOLOGY EXAM - CT (IMAGES ONLY, NO REPORT) (08/19/2023 12:45 PM EST) 08/19/2023 12:3 7 PM EST Narrative Scheduling, Silent - 05/11/2024 7:38 PM EDT This is an imaging study not interpreted or resulted by a [facility] or [facility] contracted radiologist. Xavi Gramajo MD RAD CT [...] Power of Attor philipp? No Care Teams Corporate Director Relationship Specialty Start Date End Date Chuy Batista MD [address] [place] [address] PCP - General Family Medicine 07/11/14 02/26/24 documented as of this encounter
--- OUTSIDE RECORDS SUMMARY | 2024-05-31 10:16 | External Medical Summary | Summary of Care ---
Author Name Unknown Organization [facility] Address [address] [place] [address] Phone [phone] Care Team Providers Care Pump Installer Name Role Phone Chuy Batista MD Primary Care Provider [phone] Encounter Details Date Type Department Care Team (Latest Contact Info) Description 12/16/2022 3:25 PM EDT - 12/16/2022 11:59 PM EDT Hospital Encounter Radiology [facility] [address] [place] [address] Discharge Disposition: Home - Self [...] 60 Blister Dosing Unit 11 10/26/2022 Active documented as of this encounter (statuses [...] Overview: basal cell carcinoma (L lower galaviz /18) ANDRZEJ (obstructive sleep apnea) 08/19/2018 Prostate cancer [...] mRNA, LNP-s, No Pre serve, 2-Dose Series ([employer]) 05/30/2021,10/29/2020,10/08/2020 COVID-19, LNP-s, No Preserve , Prosper-sucrose, [...] 06/21/2024 2:15 PM EST Office Visit Urology, [facility] 132 [facility] [place] [address] Valdemar Prado MD [address] [place] [phone] 06/23/2024 11:00 AM EST Office Visit Cardiology, [facility] [address] [place] [address] Zak Rubio, DO [address] [facility] [place] [address] 06/26/2024 1:00 PM EST Office Visit Neurology [facility] [address] [place] [address] Ellie Duncan MD [address] [place], [place] [address] 06/28/2024 2:30 PM EST Office Visit Otolaryngology [facility] 132 [place] [address] Dioni Jean-Baptiste, DO 132 [facility] [place] [address] 06/30/2024 4:20 PM EST Office Visit Neurology [facility] [address] [place], [place] [address] Ellie Duncan MD 200 [facility] [place] [address] 07/25/2024 2:45 PM EST Office Visit Hematology/Oncology [facility] 200 [facility] [place], [place] [phone] Xavi Gramajo MD 200 [facility] [place], [place] [address] 08/28/2024 3:00 PM EST Office Visit Family Practice, [place] [address] [place] [phone] Chuy Batista MD [address] [place] [address] 09/04/2024 1:00 PM EST Procedure Only Urology, [address] [place] [address] Ernesto Villareal MD [address] [place] [address] 09/14/2024 1:00 PM EST Cardiac Studies Cardiac Studies, [facility] [address] [facility] [place] [address] Health Maintenance Due Date Last Done Comments Albumin/Creatinine Ratio 1963 DTap/Tdap Vaccines (1 - Tdap) 1964 Adult Wellness Visit 02/01/2020 01/31/2019 COVID-19 Vaccine ( season) 2024 07/22/2022, 07/22/2022, 02/11/2022, Additional history exists CKD PHOS USE SMARTSET 03182 09/11/202408/17, 09/11/2023, 07/14/2021, Additional history exists GFR 10/13/2024 04/12/2024, 10/15, 11/03/2023, Additional history exists Depression Screening 12/26/2024 12/27/2023 CKD HGB USE SMARTSET 50159 04/12/202504/12, 04/12/2024, 12/13/2023, Additional history exists Pneumococcal [...] - CT (IMAGES ONLY, NO REPORT) Routine 12/16/2022 3:25 PM EDT documented in this encounter Results * RADIOLOGY EXAM - CT (IMAGES ONLY, NO REPORT) (12/16/2022 3:25 PM EDT) 12/16/2022 3:25 PM EDT Narrative Scheduling, Silent - 05/11/2024 7:32 PM EDT This is an imaging study not interpreted or resulted by a [email or web address]. Xavi Gramajo MD RAD CT [...] Power of Attor philipp? No Care Teams Pump Installer Relationship Specialty Start Date End Date Chuy Batista MD [address] [place] [address] PCP - General Family Medicine 07/11/14 02/26/24 documented as of this encounter
--- OUTSIDE RECORDS SUMMARY | 2024-05-31 10:16 | External Medical Summary | Summary of Care ---
Author Name Unknown Organization [facility] Address [address] [place] [address] Phone [phone] Care Team Providers Care First Mate Name Role Phone Damaris Beyer MD Primary Care Provider [phone] Reason for Visit * Reason Onset Date Comments Medication Question 05/30/2024 Encounter Details Date Type Department Care Team (Late st Contact Info) Description 05/30/2024 Telephone [facility] [address] [place] [address] Damaris Beyer MD [address] [place] [address] Medication Question Allergies Active Allergy [...] the morning. 90 Capsule 1 11/12/2023 Active [facility] Wound/Burn Dressing External GelIndications:Pr essure injury [...] mRNA, LNP-s, No Pre serve, 2-Dose Series (Dispop) 05/30/2021,10/29/2020,10/08/2020 COVID-19, LNP-s, No Preserve , Prosper-sucrose, [...] Addendum Note - Arnold Willis MD - 05/30/2024 4:55 PM EDTAddended by: ARNOLD WILLIS on: 05/30/2024 04:55 PM Modules accepted: Orders * Telephone Encounter - Arnold Willis MD - 05/30/2024 4:55 PM EDT Can notify that urine studies are ordered * Telephone Encounter - Maribel Morales LPN [...] office. Please advise. Thank you, Diana James [facility] Phosphoric Acid Supervisor I [facility] 05/30/2024,2:58 PM documented in this encounter Plan of Treatment Upcoming Encounters Date Type Department Care Team (Late st Contact Info) Description 06/21/2024 2:15 PM EST Office Visit Urology, [facility] [address] [facility] [place] [address] Valdemar Prado MD [address] [place] [address] 06/23/2024 11:00 AM EST Office Visit Cardiology, [facility] [address] [facility] [place] [address] Zak Rubio, DO [address] [facility] [place] [address] 06/28/2024 2:30 PM EST Office Visit Otolaryngology [facility] [address] [facility] [place] [address] Dioni Jean-Baptiste, DO 132 [facility] [place] [address] 06/30/2024 4:20 PM EST Office Visit Neurology [facility] 200 [facility] [place] [address] Ellie Duncan MD 200 [place] [address] 07/25/2024 2:45 PM EST Office Visit Hematology/Oncology [facility] 200 [facility] [place] [address] Xavi Gramajo MD 200 [facility] [place] [address] 08/28/2024 3:00 PM EST Office Visit [facility] [address] [place] [phone] Arnold Willis MD [address] [place], [place] [address] 09/04/2024 1:00 PM EST Procedure Only Urology, [place] [address] [place] [address] Ernesto Villareal MD [address] [facility] [place] [address] 09/14/2024 1:00 PM EST Cardiac Studies Cardiac Studies, [facility] [address] [place] [address] Scheduled Orders Name Type Priority Associated Diagnoses Orde r Schedule CULTURE, URINE, QUANTITATIVE Lab Routine Dark yellow-colored urine Altered mental status, unspecified altered mental status type Expected: 05/30/2024, Expires: 05/30/2025 URINALYSIS, REFLEX TO MICROSCOPIC Lab Routine Dark yellow-colored urine Altered mental status, unspecified altered mental status type Expected: 05/30/2024, Expires: 05/30/2025 Health Maintenance Due Date Last Done Comments Albumin/Creatinine Ratio 1963 DTap/Tdap Vaccines (1 - Tdap) 1964 Adult Wellness Visit 02/01/2020 01/31/2019 COVID-19 Vaccine ( season) 2024 07/22/2022, 07/22/2022, 02/11/2022, Additional history exists CKD PHOS USE SMARTSET 63285 09/11/202408/17, 09/11/2023, 07/14/2021, Additional history exists GFR 10/13/2024 04/12/2024, 10/15, 11/03/2023, Additional history exists Depression Screening 12/26/2024 12/27/2023 CKD HGB USE SMARTSET 54027 04/12/202504/12, 04/12/2024, 12/13/2023, Additional history exists Pneumococcal [...] as of this encounter Visit Diagnoses Diagnosis Dark yellow-colored urine- Primary Altered mental status, unspecified altered mental status type documented in this encounter Advance Directives * [...] Power of Attor philipp? No Care Teams First Mate Relationship Specialty Start Date End Date Damaris Beyer MD [address] [place] [address] PCP - General Internal Medicine 02/27/24 documented as of this encounter
--- OUTSIDE RECORDS SUMMARY | 2024-05-31 10:17 | External Medical Summary | Summary of Care ---
Author Name Unknown Organization [facility] Address [address] [place] [address] Phone [phone] Care Team Providers Care Die Cast Supervisor Name Role Phone Damaris Beyer MD Primary Care Provider [phone] Reason for Visit * Reason Onset Date Comments Urinary Tract Infection Symptoms 05/09/2024 Encounter Details Date Type Department Care Team (Late st Contact Info) Description 05/09/2024 Telephone [facility] [address] [place] [address] DecemberDeondre MD [address] [place] [address] Urinary Tract Infection Symptoms Allergies Active Allergy Reactions Criticality Noted Date Comments Chocolate Diarrhea 05/14/2023 Chocolate Flavor High 10/09/2023 Other Reaction(s): DIARRHEA/ Cannot take, interacts w/ medications. Clindamycin Hcl 09/24/2005 rash Cranberry 10/20/2023 Iodinated Contrast Media 10/01/2015 Ioversol Other (Please comment) High 08/10/[address] IV DYE Pembrolizumab High 10/10/2023 Other Reaction(s): myocarditis documented as of this encounter (statuses as of 05/09/2024) Medications Medication Sig Dispensed Refills Start Date [...] the morning. 90 Capsule 1 11/12/2023 Active [facility] Wound/Burn Dressing External GelIndications:Pr essure injury of [...] as of this encounter (statuses as of 05/09/2024) Active Problems Problem Noted Date Diagnosed Date [...] as of this encounter (statuses as of 05/09/2024) Resolved Problems Problem Noted Date Diagnosed Date [...] as of this encounter (statuses as of 05/09/2024) Immunizations Name Administration Dates Next Due COVID-19 mRNA, LNP-s, No Pre serve, 2-Dose Series (Xcalia) 05/30/2021,10/29/2020,10/08/2020 COVID-19, LNP-s, No Preserve , Prosper-sucrose, [...] encounter Miscellaneous Notes * Telephone Encounter - Deondre Hill MD - 05/09/2024 1:40 PM EDT Patient's stating patient has darker urine in tatum with some confusion. Recommend collecting urine sample to rule out UTI. Deondre Hill MD documented in this encounter Plan of Treatment Upcoming Encounters Date Type Department Care Team (Late st Contact Info) Description 06/21/2024 2:15 PM EST Office Visit Urology, [facility] [address] [place] [address] Valdemar Prado MD [address] [place] [address] 06/23/2024 11:00 AM EST Office Visit Cardiology, [facility] [address] [place] [address] Zak Rubio, DO [address] [place] [address] 06/26/2024 1:00 PM EST [facility] [address] [place] [address] Ellie Duncan MD 200 [facility] [place] [address] 06/28/2024 2:30 PM EST Office Visit Otolaryngology [facility] [address] [place] [address] Dioni Jean-Baptiste DO [address] [place] [address] 06/30/2024 4:20 PM EST Office Visit [facility] [address] [place] [address] Ellie Duncan MD 200 [facility] [place] [address] 07/25/2024 2:45 PM EST Office Visit Hematology/Oncology [facility] [place] 200 [facility] [place] [phone] Xavi Gramajo MD 200 [facility] [place] [address] 08/28/2024 3:00 PM EST Office Visit Family [facility] [address] [place] [phone] Chuy Batista MD [address] [place], [place] [phone] 09/04/2024 1:00 PM EST Procedure Only Urology, [place] [address] [place] [address] Ernesto Villareal MD [address] [place] [address] 09/14/2024 1:00 PM EST Cardiac Studies Cardiac Studies, [facility] [address] [place] [address] Scheduled Orders Name Type Priority Associated Diagnoses Orde r Schedule CULTURE, URINE, QUANTITATIVE Lab Routine Dark yellow-colored urine Expected: 05/09/2024, Expires: 05/09/2025 Health Maintenance Due Date Last Done Comments Albumin/Creatinine Ratio 1963 DTap/Tdap Vaccines (1 - Tdap) 1964 Adult Wellness Visit 02/01/2020 01/31/2019 COVID-19 Vaccine ( season) 2024 07/22/2022, 07/22/2022, 02/11/2022, Additional history exists CKD PHOS USE SMARTSET 86706 09/11/202408/17, 09/11/2023, 07/14/2021, Additional history exists GFR 10/13/2024 04/12/2024, 10/15, 11/03/2023, Additional history exists Depression Screening 12/26/2024 12/27/2023 CKD HGB USE SMARTSET 67674 04/12/202504/12, 04/12/2024, 12/13/2023, Additional history exists Pneumococcal [...] Visit Diagnoses Diagnosis Dark yellow-colored urine- Primary documented in this encounter Advance Directives * [...] Power of Attor philipp? No Care Teams Die Cast Supervisor Relationship Specialty Start Date End Date aDmaris Beyer MD [address] [place] [address] PCP - General Internal Medicine 02/27/24 documented as of this encounter
--- OUTSIDE RECORDS SUMMARY | 2024-05-31 10:17 | External Medical Summary | Summary of Care ---
Author Name Unknown Organization [facility] Address [address] [place] [address] Phone [phone] Care Team Providers Care Gas Shovel Operator Name Role Phone Damaris Beyer MD Primary Care Provider [phone] Reason for Visit * Reason Onset Date Comments Urinary Tract Infection Symptoms 05/09/2024 Encounter Details Date Type Department Care Team (Late st Contact Info) Description 05/09/2024 Telephone [facility] [address] [place] [address] DecemberDeondre MD [address] [place] [address] Urinary Tract Infection Symptoms Allergies [...] the morning. 90 Capsule 1 11/12/[address] [facility] Wound/Burn Dressing External GelIndications:Pr essure injury [...] mRNA, LNP-s, No Pre serve, 2-Dose Series (Haofangtong) 05/30/2021,10/29/2020,10/08/2020 COVID-19, LNP-s, No Preserve , Prosper-sucrose, [...] 06/21/2024 2:15 PM EST Office Visit Urology, [facility] [address] [place] [address] Valdemar Prado MD [address] [place] [address] 06/23/2024 11:00 AM EST Office Visit Cardiology, [facility] [address] [place] [address] Zak Rubio, DO [address] [place] [address] 06/26/2024 1:00 PM EST Office Visit Neurology [facility] [address] [place] [address] Ellie Duncan MD 200 [facility] [place] [address] 06/28/2024 2:30 PM EST Office Visit Otolaryngology [facility] [address] [place] [address] Dioni Jean-Baptiste DO [address] [place] [address] 06/30/2024 4:20 PM EST Office Visit Neurology [facility] [address] [place] [address] Ellie Duncan MD 200 [facility] [place] [address] 07/25/2024 2:45 PM EST Office Visit [facility] [place] [facility] [place] [phone] Xavi Gramajo MD 200 [facility] [place] [address] 08/28/2024 3:00 PM EST Office Visit Family [facility] [address] [place] [phone] Chuy Batista MD [address] [place], [place] [address] 09/04/2024 1:00 PM EST Procedure Only Urology, [place] [address] [place] [address] Ernesto Villareal MD [address] [place] [address] 09/14/2024 1:00 PM EST Cardiac Studies Cardiac Studies, [facility] 132 [place] [address] Scheduled Orders Name Type Priority Associated Diagnoses Orde r Schedule CULTURE, URINE, QUANTITATIVE Lab Routine Dark yellow-colored urine Expected: 05/09/2024, Expires: 05/09/2025 Health Maintenance Due Date Last Done Comments Albumin/Creatinine Ratio 1963 DTap/Tdap Vaccines (1 - Tdap) 1964 Adult Wellness Visit 02/01/2020 01/31/2019 COVID-19 Vaccine ( season) 2024 07/22/2022, 07/22/2022, 02/11/2022, Additional history exists CKD PHOS USE SMARTSET 10487 09/11/202408/17, 09/11/2023, 07/14/2021, Additional history exists GFR 10/13/2024 04/12/2024, 10/15, 11/03/2023, Additional history exists Depression Screening 12/26/2024 12/27/2023 CKD HGB USE SMARTSET 38619 04/12/202504/12, 04/12/2024, 12/13/2023, Additional history exists Pneumococcal [...] Power of Attor philipp? No Care Teams Gas Shovel Operator Relationship Specialty Start Date End Date Damaris Beyer MD [address] [place] [address] PCP - General Internal Medicine 02/27/24 documented as of this encounter
--- OUTSIDE RECORDS SUMMARY | 2024-05-31 10:17 | External Medical Summary | Summary of Care ---
Author Name Unknown Organization [facility] Address [address] [facility] [address] Phone [phone] Care Team Providers Care Accordion Maker Name Role Phone Damaris Beyer MD Primary Care Provider [phone] Encounter Details Date Type Department Care Team (Late st Contact Info) Description 04/13/2024 Result Scan Unspecified Department <No scans attached> Allergies Active Allergy Reactions Criticality Noted Date Comments Chocolate Diarrhea 05/14/2023 Chocolate Flavor High 10/09/2023 Other Reaction(s): DIARRHEA/ Cannot take, interacts w/ medications. Clindamycin Hcl 09/24/2005 rash Cranberry 10/20/2023 Iodinated Contrast Media 10/01/2015 Ioversol Other (Please comment) High 08/10/[address] IV DYE Pembrolizumab High 10/10/2023 Other Reaction(s): myocarditis documented as of this encounter (statuses as of 05/05/2024) Medications Medication Sig Dispensed Refills Start Date [...] the morning. 90 Capsule 1 11/12/2023 Active [facility] Wound/Burn Dressing External GelIndications:Pr essure injury [...] as of this encounter (statuses as of 05/05/2024) Active Problems Problem Noted Date Diagnosed Date [...] as of this encounter (statuses as of 05/05/2024) Resolved Problems Problem Noted Date Diagnosed Date [...] as of this encounter (statuses as of 05/05/2024) Immunizations Name Administration Dates Next Due COVID-19 mRNA, LNP-s, No Pre serve, 2-Dose Series (Cleanify) 05/30/2021,10/29/2020,10/08/2020 COVID-19, LNP-s, No Preserve , Prosper-sucrose, [...] 06/21/2024 2:15 PM EST Office Visit Urology, [facility] [address] [place] [place] [address] Valdemar Prado MD [address] [place] [address] 06/23/2024 11:00 AM EST Office Visit Cardiology, [facility] [address] [place] [address] Zak Rubio, DO [address] [place] [address] 06/26/2024 1:00 PM EST Office Visit Neurology [facility] [address] [place] [address] Ellie Duncan MD [address] [place] [address] 06/28/2024 2:30 PM EST Office Visit Otolaryngology [facility] [address] [place] [address] Dioni Jean-Baptiste, DO [address] [place] [address] 06/30/2024 4:20 PM EST Office Visit Neurology [facility] [address] [place] [address] Ellie Duncan MD 200 [place] [address] 07/25/2024 2:45 PM EST Office Visit Hematology/Oncology [facility] [address] [place] [phone] Xavi Gramajo MD 200 [place] [address] 08/28/2024 3:00 PM EST [facility] [address] [place] [phone] Chuy Batista MD [address] [place], [place] [address] 09/04/2024 1:00 PM EST Procedure Only Urology, [place] [address] [facility] [place] [address] Ernesto Villareal MD [address] [facility] [place] [address] 09/14/2024 1:00 PM EST Cardiac Studies Cardiac Studies, [facility] [address] [place] [address] Health Maintenance Due Date Last Done Comments Albumin/Creatinine Ratio 1963 DTap/Tdap Vaccines (1 - Tdap) 1964 Adult Wellness Visit 02/01/2020 01/31/2019 COVID-19 Vaccine ( season) 2024 07/22/2022, 07/22/2022, 02/11/2022, Additional history exists CKD PHOS USE SMARTSET 17560 09/11/202408/17, 09/11/2023, 07/14/2021, Additional history exists GFR 10/13/2024 04/12/2024, 10/15, 11/03/2023, Additional history exists Depression Screening 12/26/2024 12/27/2023 CKD HGB USE SMARTSET 73125 04/12/202504/12, 04/12/2024, 12/13/2023, Additional history exists Pneumococcal [...] Procedure Name Priority Date/Time Associated Diagnosis Comments PROCEDURE SCANNED RESULT 04/13/2024 documented in this encounter Results * PROCEDURE SCANNED RESULT (04/13/2024) 04/13/2024 No Physician Data Unknown SURGERY documented in this encounter Advance Directives * [...] Power of Attor philipp? No Care Teams Accordion Maker Relationship Specialty Start Date End Date Damaris Beyer MD [address] [place] [address] PCP - General Internal Medicine 02/27/24 documented as of this encounter
--- OUTSIDE RECORDS SUMMARY | 2024-05-31 10:17 | External Medical Summary | Summary of Care ---
Author Name Unknown Organization [facility] Address [address] [place] [address] Phone [phone] Care Team Providers Care Doctor Of Nursing Practice Name Role Phone Damaris Beyer MD Primary Care Provider [phone] Reason for Visit * Reason Onset Date Comments Appointment Canceled 02/24/2024 Encounter Details Date Type Department Care Team (Late st Contact Info) Description 02/24/2024 Telephone Urology, [place] [address] [place] [address] Ernesto Villareal MD [address] [place] [address] Appointment Canceled Allergies Active Allergy Reactions Criticality Noted Date Comments Chocolate Diarrhea 05/14/2023 Chocolate Flavor High 10/09/2023 Other Reaction(s): DIARRHEA/ Cannot take, interacts w/ medications. Clindamycin Hcl 09/24/2005 rash Cranberry 10/20/2023 Iodinated Contrast Media 10/01/2015 Ioversol Other (Please comment) High 08/10/[address] IV DYE Pembrolizumab High 10/10/2023 Other Reaction(s): myocarditis documented as of this encounter (statuses as of 05/02/2024) Medications Medication Sig Dispensed Refills Start Date [...] 90 Capsule 1 11/12/2023 Active [facility] Wound/Burn Dressing External GelIndications:P ressure injury of [...] MCG Oral Tablet Take by mouth daily. Active Fleet Enema 7-19 GM/118ML Rectal Enema Administer [...] Active Memantine HCl 5 MG Oral Tablet (Namenda)Indicat ions:MCI (mild cognitive impairment) 5 mg once a day for a week and then 5 mg twice a day 60 Tablet 2 02/01/2024 Active Sulfamethoxazole -Trimethoprim 800-160 MG Oral Tablet (Bactrim DS)Indications:U rothelial carcinoma of bladder (HCC),Other acute myocarditis 1 tablet 3 days a week ( Wednesday, Wednesday, Wednesday). 36 Tablet 10/07/2023 03/06/20 24 Discontinu ed(Refill) Midodrine HCl 2.5 MG Oral Tablet (Proamatine)Denice cations:Orthosta tic hypotension Take 1 Tablet by mouth 3 times a day. Take at 8 am, noon, 4 pm 90 Tablet 11/04/2023 03/14/20 24 Discontinu ed(Refill) documented as of this encounter (statuses as of 05/02/2024) Active Problems Problem Noted Date Diagnosed Date [...] as of this encounter (statuses as of 05/02/2024) Resolved Problems Problem Noted Date Diagnosed Date [...] as of this encounter (statuses as of 05/02/2024) Immunizations Name Administration Dates Next Due COVID-19 mRNA, LNP-s, No Pre serve, 2-Dose Series (Voölks) 05/30/2021,10/29/2020,10/08/2020 COVID-19, LNP-s, No Preserve , Prosper-sucrose, [...] encounter Miscellaneous Notes * Telephone Encounter - Akosua Trinidad RN - 02/24/2024 6:53 PM EDT Contacted spouse of patient to cancel the appointment on Wednesday02-28-[address] due [address] availability of Dr[address] Villareal schedule that day in the OR. Offered an appointment on 03-06-24 but spouse stated this date will not work. Next available appointment offered on 05-01-24 at 1:00 PM. Spouse concerned that the patient has bladder cancer and feels the patient should be seen sooner. Patient is currently at home after being in a [place] rehab. Patient is receiving nursing and physical therapy. Patient also has anindwelling catheter and will need antibiotics leading up to the cystoscopy appointment. Spouse requesting to be placed on a cancellation list for possible sooner appointment. Akosua Trinidad RN, MSN 02/24/2024 6:57 PM documented in this encounter Plan of Treatment Upcoming Encounters Date Type Department Care Team (Late st Contact Info) Description 06/21/2024 2:15 PM EST Office Visit Urology, [facility] [place] [address] Valdemar Prado MD [address] [place] [address] 06/23/2024 11:00 AM EST Office Visit Cardiology, [facility] 132 [facility] [place] [address] Zak Rubio, DO 132 [facility] [place] [address] 06/26/2024 1:00 PM EST Office Visit Neurology [facility] [address] [place] [address] Ellie Duncan MD [address] [place] [address] 06/28/2024 2:30 PM EST Office Visit Otolaryngology [facility] 132 [facility] [place] [address] Dioni Jean-Baptiste, DO [address] [place] [address] 06/30/2024 4:20 PM EST Office Visit Neurology [facility] [address] [place] [address] Ellie Duncan MD 200 [facility] [place] [address] 07/25/2024 2:45 PM EST Office Visit Hematology/Oncology [facility] 200 [facility] [place], [place] [address] Xavi Gramajo MD [address] [place] [address] 08/28/2024 3:00 PM EST Office Visit Family [facility] [address] [place] [phone] Chuy Batista MD [address] [place], [place] [address] 09/04/2024 1:00 PM EST Procedure Only Urology, [place] [address] [place] [address] Ernesto Villareal MD [address] [place], [place] [address] 09/14/2024 1:00 PM EST Cardiac Studies Cardiac Studies, [facility] [address] [place] [address] Health Maintenance Due Date Last Done Comments Albumin/Creatinine Ratio 1963 DTap/Tdap Vaccines (1 - Tdap) 1964 Adult Wellness Visit 02/01/2020 01/31/2019 COVID-19 Vaccine ( season) 2024 07/22/2022, 07/22/2022, 02/11/2022, Additional history exists CKD PHOS USE SMARTSET 49592 09/11/202408/17, 09/11/2023, 07/14/2021, Additional history exists GFR 10/13/2024 04/12/2024, 10/15, 11/03/2023, Additional history exists Depression Screening 12/26/2024 12/27/2023 CKD HGB USE SMARTSET 13080 04/12/202504/12, 04/12/2024, 12/13/2023, Additional history exists Pneumococcal [...] Power of Attor philipp? No Care Teams Doctor Of Nursing Practice Relationship Specialty Start Date End Date Damaris Beyer MD [address] [place] [address] PCP - General Internal Medicine 02/27/24 documented as of this encounter
--- OUTSIDE RECORDS SUMMARY | 2024-05-31 10:17 | External Medical Summary | Summary of Care ---
Author Name Unknown Organization [facility] Address [address] [facility] [place] [address] Phone [phone] Care Team Providers Care Cable Weaver Name Role Phone Damaris Beyer MD Primary Care Provider [phone] Reason for Visit * Reason Onset Date Comments Appointment 02/09/2024 Encounter Details Date Type Department Care Team (Late st Contact Info) Description 02/09/2024 Telephone Cardiology, [facility] [address] [place] [address] Skye Gonzales CRNP [address] [place] [address] Appointment Allergies Active Allergy Reactions Criticality Noted Date Comments Chocolate Diarrhea 05/14/2023 Chocolate Flavor High 10/09/2023 Other Reaction(s): DIARRHEA/ Cannot take, interacts w/ medications. Clindamycin Hcl 09/24/2005 rash Cranberry 10/20/2023 Iodinated Contrast Media 10/01/2015 Ioversol Other (Please comment) High 08/10/[address] IV DYE Pembrolizumab High 10/10/2023 Other Reaction(s): myocarditis documented as of this encounter (statuses as of 05/10/2024) Medications Medication Sig Dispensed Refills Start Date [...] 90 Capsule 1 11/12/2023 Active [facility] Wound/Burn Dressing External GelIndications:Pr essure injury of [...] a day 60 Tablet 2 02/01/2024 Active documented as of this encounter (statuses as of 05/10/2024) Active Problems Problem Noted Date Diagnosed Date [...] as of this encounter (statuses as of 05/10/2024) Resolved Problems Problem Noted Date Diagnosed Date [...] as of this encounter (statuses as of 05/10/2024) Immunizations Name Administration Dates Next Due COVID-19 mRNA, LNP-s, No Pre serve, 2-Dose Series (imbookin (Pogby)) 05/30/2021,10/29/2020,10/08/2020 COVID-19, LNP-s, No Preserve , Prosper-sucrose, [...] Miscellaneous Notes * Telephone Encounter - Des Jerez OSA - 02/09/2024 10:48 AM EDT has been called, and the ECHO is rescheduled for: Wednesday Appt at 2:00 PM (1 hr) ECHO TECH3 GW * Telephone Encounter - Trista Simpson CMA - 02/09/2024 10:43 AM EDT Patient requesting to reschedule echo appointment. * Telephone Encounter - Gabriela Dinero OSA - 02/09/2024 9:59 AM EDT Person calling: ivet Relationship to patient: pt Number to return call: [phone] Reason for call(brief): pt needs appt for 02-10-2024 changed no appt till April pt refused would like to speak to office Pharmacy: na Provider Name:nam Detailed message to office:na documented in this encounter Plan of Treatment Upcoming Encounters Date Type Department Care Team (Late st Contact Info) Description 06/21/2024 2:15 PM EST Office Visit Urology, [facility] [address] [place] [address] Valdemar Prado MD [address] [place] [address] 06/23/2024 11:00 AM EST Office Visit Cardiology, [facility] 132 [facility] [place] [address] Zak Rubio, DO 132 [facility] [place] [address] 06/26/2024 1:00 PM EST Office Visit Neurology [facility] [address] [place] [address] [address] Ellie Duncan MD [address] [place] [address] [address] 06/28/2024 2:30 PM EST Office Visit Otolaryngology [facility] 132 [facility] [place] [address] Dioni Jean-Baptiste, DO 132 [facility] [address] 06/30/2024 4:20 PM EST Office Visit Neurology [facility] [address] [place] [address] [address] Ellie Duncan MD [address] [place] [address] [address] 07/25/2024 2:45 PM EST Office Visit Hematology/Oncology [facility] [address] [place] [phone] Xavi Gramajo MD 200 [place] [address] 08/28/2024 3:00 PM EST Office Visit Family [facility] [place] [address] [place] [phone] Chuy Batista MD [address] [place] [address] 09/04/2024 1:00 PM EST Procedure Only Urology, [place] [address] [place] [address] Ernesto Villareal MD [address] [place], [place] [address] 09/14/2024 1:00 PM EST Cardiac Studies Cardiac Studies, [facility] [address] [place] [address] Health Maintenance Due Date Last Done Comments Albumin/Creatinine Ratio 1963 DTap/Tdap Vaccines (1 - Tdap) 1964 Adult Wellness Visit 02/01/2020 01/31/2019 COVID-19 Vaccine ( season) 2024 07/22/2022, 07/22/2022, 02/11/2022, Additional history exists CKD PHOS USE SMARTSET 85952 09/11/202408/17, 09/11/2023, 07/14/2021, Additional history exists GFR 10/13/2024 04/12/2024, 10/15, 11/03/2023, Additional history exists Depression Screening 12/26/2024 12/27/2023 CKD HGB USE SMARTSET 28339 04/12/202504/12, 04/12/2024, 12/13/2023, Additional history exists Pneumococcal [...] Power of Attor philipp? No Care Teams Cable Weaver Relationship Specialty Start Date End Date Damaris Beyer MD [address] [place] [address] PCP - General Internal Medicine 02/27/24 documented as of this encounter
--- OUTSIDE RECORDS SUMMARY | 2024-05-31 10:17 | External Medical Summary ---
Author Name Unknown Address Unknown Organization K01:[facility] [place] [address] [place] [id number] Laboratory Report Ordering Provider Test Date Status 05/10/2024 13:25:16 Final Observation Date Value Abnormality Reference (Units) Status Bacteria identified in Specimen by Culture 05/10/2024 13:25:16 Multiple rich suggests contamination or colonization. Clinical correlation needed. Consider repeat testing if symptoms worsen. Final Test: Culture, Urine, Quanti tative
Specimen Source: Urine, Catheter
Specimen Type: Urine
Specimen Date: 05/10/20241324
Result Date: 05/11/20241952
Result Status: Final result
Resulting Lab: [facility] [place]
[address]
[facility] [address]

CULTURE

Multiple rich suggests contamination or colonization. Clinical correlation
needed. Consider repeat testing if symptoms worsen.

null Performing Location [facility] [place] [address] [place] [id number]
--- OUTSIDE RECORDS SUMMARY | 2024-05-31 10:17 | External Medical Summary | Summary of Care ---
Author Name Unknown Organization [facility] Address [address] [place] [address] Phone [phone] Care Team Providers Care Wrist Closer Name Role Phone Damaris Beyer MD Primary Care Provider [phone] Reason for Visit * Reason Comments Outpatient Testing Encounter Details Date Type Department Care Team (Late st Contact Info) Description 05/10/2024 1:30 PM EDT Laboratory Laboratory, [address] [address] St, Specimen Drop Off [address] [address] Dark yellow-colored urine Allergies Active Allergy Reactions Criticality Noted Date [...] the morning. 90 Capsule 1 11/12/2023 Active [facility] Wound/Burn Dressing External GelIndications:Pr essure [...] 06/21/2024 2:15 PM EST Office Visit Urology, [facility] [place] [address] Valdemar Prado MD [address] [place] [address] 06/23/2024 11:00 AM EST Office Visit Cardiology, [facility] 132 [facility] [place] [address] Zak Rubio, DO 132 [facility] [place] [address] 06/26/2024 1:00 PM EST Office Visit Neurology [facility] [address] [place] [place] [address] [address] Ellie Duncan MD 200 [facility] [address] [place] [address] 06/28/2024 2:30 PM EST Office Visit Otolaryngology [facility] 132 [facility] [place] [address] Dioni Jean-Baptiste, DO 132 [facility] [place] [address] 06/30/2024 4:20 PM EST Office Visit Neurology [facility] [address] [place] [place] [address] [address] Ellie Duncan MD [address] [place] [address] 07/25/2024 2:45 PM EST Office Visit Hematology/Oncology [facility] [address] [place] [phone] Xavi Gramajo MD [address] [place] [place] [address] [address] 08/28/2024 3:00 PM EST Office Visit [facility] [place] [address] [place] [address] Chuy Batista MD [address] [place] [address] 09/04/2024 1:00 PM EST Procedure Only Urology, [place] [address] [place] [address] Ernesto Villareal MD [address] [place] [address] 09/14/2024 1:00 PM EST Cardiac Studies Cardiac Studies, [facility] 132 [facility] [place] [address] Pending Results Name Type Priority Associated Diagnoses Date /Time CULTURE, URINE, QUANTITATIVE Lab Routine Dark yellow-colored urine 05/10/2024 1:25 PM EDT Health Maintenance Due Date Last Done Comments Albumin/Creatinine Ratio 1963 DTap/Tdap Vaccines (1 - Tdap) 1964 Adult Wellness Visit 02/01/2020 01/31/2019 COVID-19 Vaccine ( season) 2024 07/22/2022, 07/22/2022, 02/11/2022, Additional history exists CKD PHOS USE SMARTSET 44637 09/11/202408/17, 09/11/2023, 07/14/2021, Additional history exists GFR 10/13/2024 04/12/2024, 10/15, 11/03/2023, Additional history exists Depression Screening 12/26/2024 12/27/2023 CKD HGB USE SMARTSET 62291 04/12/202504/12, 04/12/2024, 12/13/2023, Additional history exists Pneumococcal [...] this encounter Visit Diagnoses Diagnosis Dark yellow-colored urine documented in this encounter Advance Directives * [...] Power of Attor philipp? No Care Teams Wrist Closer Relationship Specialty Start Date End Date Damaris Beyer MD [address] [place] [address] PCP - General Internal Medicine 02/27/24 documented as of this encounter
--- OUTSIDE RECORDS SUMMARY | 2024-05-31 10:18 | External Medical Summary | Summary of Care ---
Author Name Unknown Organization [facility] Address [address] [place] [address] Phone [phone] Care Team Providers Care Outside Energy Sales Representatives Name Role Phone Damaris Beyer MD Primary Care Provider [phone] Encounter Details Date Type Department Care Team (Late st Contact Info) Description 04/27/2024 Telephone Urology, [place] [address] [place] [address] Kade Fontanez PA-C [address] [place] [address] Allergies Active Allergy Reactions Criticality Noted Date Comments Chocolate Diarrhea 05/14/2023 Chocolate Flavor High 10/09/2023 Other Reaction(s): DIARRHEA/ Cannot take, interacts w/ medications. Clindamycin Hcl 09/24/2005 rash Cranberry 10/20/2023 Iodinated Contrast Media 10/01/2015 Ioversol Other (Please comment) High 08/10/[address] IV DYE Pembrolizumab High 10/10/2023 Other Reaction(s): myocarditis documented as of this encounter (statuses as of 04/27/2024) Medications Medication Sig Dispensed Refills Start Date [...] the morning. 90 Capsule 1 11/12/2023 Active [facility] Wound/Burn Dressing External GelIndications:Pr essure [...] as of this encounter (statuses as of 04/27/2024) Active Problems Problem Noted Date Diagnosed Date [...] as of this encounter (statuses as of 04/27/2024) Resolved Problems Problem Noted Date Diagnosed Date [...] as of this encounter (statuses as of 04/27/2024) Immunizations Name Administration Dates Next Due COVID-19 mRNA, LNP-s, No Pre serve, 2-Dose Series (Enervee) 05/30/2021,10/29/2020,10/08/2020 COVID-19, LNP-s, No Preserve , Prosper-sucrose, [...] encounter Miscellaneous Notes * Telephone Encounter - Shara Sanders, ANDRZEJ - 04/27/2024 2:30 PM EDT calling in stating that pt has been on Fulfamethoxazole , that he takes Wednesday, Wednesday and Wednesday since at least February. She states he's been on this to prevent UTi's from PCP. Wondering if he is still supposed to be taking it while starting the new medication? Please advise * Telephone Encounter - Kade Fontanez PA-C - 04/27/2024 11:50 AM EDT Patient was positive urine culture growing corynebacterium striatum and Enterococcus susceptible toampicillin. Will treat with ampicillin 500 mg 4 times daily for 7 days. Patient was an upcoming cystoscopy scheduled 05/01/2024. Script sent to pharmacy Pharmacy Selected: [id number] [place] Medication Orders Placed This Encounter Medications Ampicillin 500 MG Oral Capsule Sig: Take 1 Capsule by mouth in the morning and 1 Capsule at noon and 1 Capsule in the evening and 1 Capsule before bedtime. Dispense: 28 Capsule Refill: 0 Please inform patient Kade Fontanez PA-C documented in this encounter Plan of Treatment Upcoming Encounters Date Type Department Care Team (Late st Contact Info) Description 05/01/2024 1:00 PM EDT Procedure Only Urology, [place] [address] [place] [address] Ernesto Villareal MD [address] [place] [address] 06/21/2024 2:15 PM EST Office Visit Urology [facility] 132 [facility] [place] [address] Valdemar Prado MD [address] [place] [address] 06/23/2024 11:00 AM EST Office Visit Cardiology, [facility] 132 [place] [address] Zak Rubio, DO 132 [place] [address] 06/26/2024 1:00 PM EST Office Visit Neurology [facility] [address] [place] [address] Ellie Duncan MD 200 [facility] [place] [address] 06/28/2024 2:30 PM EST Office Visit Otolaryngology [facility] 132 [place] [address] Dioni Jean-Baptiste, DO 132 [place] [address] 06/30/2024 4:20 PM EST Office Visit Neurology [facility] [address] [place], [place] [address] Ellie Duncan MD 200 [facility] [place], [place] [address] 07/25/2024 2:45 PM EST Office Visit Hematology/Oncology [facility] 200 [facility] [place], [place] [address] Xavi Gramajo MD 200 [facility] [place] [address] 08/28/2024 3:00 PM EST Office Visit Family [facility] [address] [place] [phone] Chuy Batista MD [address] [place] [address] 09/14/2024 1:00 PM EST Cardiac Studies Cardiac Studies, [facility] [place] [address] Health Maintenance Due Date Last Done Comments Albumin/Creatinine Ratio 1963 DTap/Tdap Vaccines (1 - Tdap) 1964 Adult Wellness Visit 02/01/2020 01/31/2019 COVID-19 Vaccine ( season) 2024 07/22/2022, 07/22/2022, 02/11/2022, Additional history exists CKD PHOS USE SMARTSET 80859 09/11/202408/17, 09/11/2023, 07/14/2021, Additional history exists GFR 10/13/2024 04/12/2024, 10/15, 11/03/2023, Additional history exists Depression Screening 12/26/2024 12/27/2023 CKD HGB USE SMARTSET 03332 04/12/202504/12, 04/12/2024, 12/13/2023, Additional history exists Pneumococcal [...] Power of Attor philipp? No Care Teams Outside Energy Sales Representatives Relationship Specialty Start Date End Date Damaris Beyer MD [address] [place] [address] PCP - General Internal Medicine 02/27/24 documented as of this encounter
--- OUTSIDE RECORDS SUMMARY | 2024-05-31 10:18 | External Medical Summary | Summary of Care ---
Author Name Unknown Organization [facility] Address [address] [place] [address] Phone [phone] Care Team Providers Care Tube Backer Name Role Phone Damaris Beyer MD Primary Care Provider [phone] Encounter Details Date Type Department Care Team (Late st Contact Info) Description 04/27/2024 Telephone Urology, [place] [address] [place] [address] Kade Fontanez PA-C [address] [place] [address] Allergies Active Allergy Reactions Criticality [...] the morning. 90 Capsule 1 11/12/2023 Active [facility] Wound/Burn Dressing External GelIndications:Pr essure injury [...] mRNA, LNP-s, No Pre serve, 2-Dose Series (Boni) 05/30/2021,10/29/2020,10/08/2020 COVID-19, LNP-s, No Preserve , Prosper-sucrose, [...] encounter Miscellaneous Notes * Telephone Encounter - Kade Fontanez PA-C - 04/27/2024 11:50 AM EDT Patient was positive urine culture growing corynebacterium striatum and Enterococcus susceptible toampicillin. Will treat with ampicillin 500 mg 4 times daily for 7 days. Patient was an upcoming cystoscopy scheduled 05/01/2024. Script sent to pharmacy Pharmacy Selected: [id number] [facility] [place] Medication Orders Placed This Encounter Medications Ampicillin [...] 05/01/2024 1:00 PM EDT Procedure Only Urology, [place] [address] [place] [address] Ernesto Villareal MD [address] [place] [address] 06/21/2024 2:15 PM EST Office Visit Urology, [facility] 132 [facility] [place] [address] Valdemar Prado MD [address] [place] [address] 06/23/2024 11:00 AM EST Office Visit Cardiology, [facility] 132 [facility] [place] [address] Zak Rubio, 132 [facility] [place] [address] 06/26/2024 1:00 PM EST Office Visit Neurology [facility] 200 [facility] [place] [address] Ellie Duncan MD 200 [facility] [place] [address] 06/28/2024 2:30 PM EST Office Visit Otolaryngology [facility] 132 [facility] [place] [address] Dioni Jean-Baptiste DO 132 [facility] [place] [address] 06/30/2024 4:20 PM EST Office Visit Neurology [facility] 200 [facility] [place] [address] Ellie Duncan MD 200 [facility] [place] [address] 07/25/2024 2:45 PM EST Office Visit Hematology/Oncology [facility] 200 [facility] [place] [address] Xavi Gramajo MD 200 [facility] [place] [address] 08/28/2024 3:00 PM EST Office Visit [facility] [address] [place] [address] Chuy Batista MD [address] [place] [address] 09/14/2024 1:00 PM EST Cardiac Studies Cardiac Studies, [facility] 132 [facility] [place] [address] Health Maintenance Due Date Last Done Comments Albumin/Creatinine Ratio 1963 DTap/Tdap Vaccines (1 - Tdap) 1964 Adult Wellness Visit 02/01/2020 01/31/2019 COVID-19 Vaccine ( season) 2024 07/22/2022, 07/22/2022, 02/11/2022, Additional history exists CKD PHOS USE SMARTSET 75350 09/11/202408/17, 09/11/2023, 07/14/2021, Additional history exists GFR 10/13/2024 04/12/2024, 10/15, 11/03/2023, Additional history exists Depression Screening 12/26/2024 12/27/2023 CKD HGB USE SMARTSET 94088 04/12/202504/12, 04/12/2024, 12/13/2023, Additional history exists Pneumococcal [...] Power of Attor philipp? No Care Teams Tube Backer Relationship Specialty Start Date End Date Damaris Beyer MD [address] [place] [facility] [place] [address] PCP - General Internal Medicine 02/27/24 documented as of this encounter
--- OUTSIDE RECORDS SUMMARY | 2024-05-31 10:18 | External Medical Summary | Summary of Care ---
Author Name Unknown Organization [facility] Address [address] [facility] [place] [address] Phone [phone] Care Team Providers Care Cup Machine Operator Name Role Phone Damaris Beyer MD Primary Care Provider [phone] Reason for Visit * Reason Onset Date Comments Advice 04/04/2024 Encounter Details Date Type Department Care Team (Late st Contact Info) Description 04/04/2024 Telephone Cardiology, [facility] [address] [place] [address] Zak Rubio, [address] [place] [address] Advice Allergies Active Allergy Reactions Criticality Noted Date Comments Chocolate Diarrhea 05/14/2023 Chocolate Flavor High 10/09/2023 Other Reaction(s): DIARRHEA/ Cannot take, interacts w/ medications. Clindamycin Hcl 09/24/2005 rash Cranberry 10/20/2023 Iodinated Contrast Media 10/01/2015 Ioversol Other (Please comment) High 08/10/[address] IV DYE Pembrolizumab High 10/10/2023 Other Reaction(s): myocarditis documented as of this encounter (statuses as of 04/28/2024) Medications Medication Sig Dispensed Refills Start Date [...] the morning. 90 Capsule 1 11/12/2023 Active [facility] Wound/Burn Dressing External GelIndications:Pr essure [...] as of this encounter (statuses as of 04/28/2024) Active Problems Problem Noted Date Diagnosed Date [...] as of this encounter (statuses as of 04/28/2024) Resolved Problems Problem Noted Date Diagnosed Date [...] as of this encounter (statuses as of 04/28/2024) Immunizations Name Administration Dates Next Due COVID-19 [...] encounter Miscellaneous Notes * Telephone Encounter - Josep Onofre LPN - 04/04/2024 3:23 PM EDT Called patient and spouse. Patient is only have slight dizziness when standing which is no worse then prior. No current hematuria. Patient's weight when leaving [facility] was 203 lbs and as of OV yesterday was 237 lbs. Right leg has edema that is ongoing and more noticeable then prior. No edema or bloating in abdomen. As previously stated in other message more output then prior when emptying catheter. Please advise. * Telephone Encounter - Zak Rubio DO - 04/04/2024 2:54 PM EDT Branden High with a history of bladder cancer and Keytruda related myocarditis. Patient he had been to see Neurology, and spouse described concerns of recent weight gain, and urine output from patient's urinary catheter has increased significantly as recently. Cardiology nursing, can you please investigate patient's/family's concerns by phone? Dizzy have any remaining hematuria, as this he had been a problem before? Has there been weight gain? The lower extremity edema? Abdominal bloating? documented in this encounter Plan of Treatment Upcoming Encounters Date Type Department Care Team (Late st Contact Info) Description 05/01/2024 1:00 PM EDT Procedure Only Urology, [place] [address] [place] [address] Ernesto Villareal MD [address] [place] [address] 06/21/2024 2:15 PM EST Office Visit Urology, [facility] 132 [facility] [place] [address] Valdemar Prado MD [address] [place] [address] 06/23/2024 11:00 AM EST Office Visit [facility], [facility] [place] [address] Zak Rubio DO [address] [place] [address] 06/26/2024 1:00 PM EST Office Visit Neurology [facility] [address] [place] [address] Ellie Duncan MD 200 [facility] [place] [address] 06/28/2024 2:30 PM EST Office Visit Otolaryngology [facility] 132 [facility] [place] [address] Dioni Jean-Baptiste DO 132 [facility] [place] [address] 06/30/2024 4:20 PM EST Office Visit Neurology [facility] [address] [place] [address] Ellie Duncan MD 200 [facility] [place] [address] 07/25/2024 2:45 PM EST Office Visit Hematology/Oncology [facility] 200 [facility] [place] [address] Xavi Gramajo MD 200 [facility] [place] [address] 08/28/2024 3:00 PM EST [facility] [address] [place] [address] Chuy Batista MD [address] [place], [place] [address] 09/14/2024 1:00 PM EST Cardiac Studies Cardiac Studies, [facility] [place] [address] Health Maintenance Due Date Last Done Comments Albumin/Creatinine Ratio 1963 DTap/Tdap Vaccines (1 - Tdap) 1964 Adult Wellness Visit 02/01/2020 01/31/2019 COVID-19 Vaccine ( season) 2024 07/22/2022, 07/22/2022, 02/11/2022, Additional history exists CKD PHOS USE SMARTSET 88816 09/11/202408/17, 09/11/2023, 07/14/2021, Additional history exists GFR 10/13/2024 04/12/2024, 10/15, 11/03/2023, Additional history exists Depression Screening 12/26/2024 12/27/2023 CKD HGB USE SMARTSET 50894 04/12/202504/12, 04/12/2024, 12/13/2023, Additional history exists Pneumococcal [...] Power of Attor philipp? No Care Teams Cup Machine Operator Relationship Specialty Start Date End Date Damaris Beyer MD [address] [place] [address] PCP - General Internal Medicine 02/27/24 documented as of this encounter
--- OUTSIDE RECORDS SUMMARY | 2024-05-31 10:18 | External Medical Summary | Summary of Care ---
Author Name Unknown Organization [facility] Address [address] [place] [address] Phone [phone] Care Team Providers Care Buy Boat Operator Name Role Phone Damaris Beyer MD Primary Care Provider [phone] Reason for Visit * Reason Onset Date Comments Appointment 03/27/2024 Nurse appt and Srini LANDIS Encounter Details Date Type Department Care Team (Late st Contact Info) Description 03/27/2024 Telephone Urology, [place] [address] [place] [address] Ernesto Villareal MD [address] [place] [address] Appointment (Nurse appt and FYI ) Allergies Active Allergy Reactions Criticality Noted Date [...] the morning. 90 Capsule 1 11/12/2023 Active [facility] Wound/Burn Dressing External GelIndications:Pr essure injury [...] mRNA, LNP-s, No Pre serve, 2-Dose Series ([employer]) 05/30/2021,10/29/2020,10/08/2020 COVID-19, LNP-s, No Preserve , Prosper-sucrose, [...] Telephone Encounter - Akosua Trinidad RN - 04/27/2024 2:24 PM EDT Contacted spouse of patient to confirm appointment on Wednesday for office cystoscopy and review recommendation to start antibiotic today or tomorrow. Ampicillin sent to patient pharmacy and recommend taking four times per day for seven days. Spouse verbalized understanding. Akosua Trinidad RN, MSN 04/27/2024 2:27 PM * Telephone Encounter - Edie Kumar MED ASSIST - 03/28/2024 3:20 PM EDT Received discharge summary from [facility]. Placed in provider's mailbox for review. Sent to [facility]. * Telephone Encounter - Edie Bhakta OSA - 03/27/2024 11:25 AM EDT HH nurse calling in wanting provider to know they will be discharging him today due to going to an outpatient physical therapy so they can no longer provider services, he was seen today for cath change, so pt would need appt in 1 month, thanks documented in this encounter Plan of Treatment Upcoming Encounters Date Type Department Care Team (Late st Contact Info) Description 05/01/2024 1:00 PM EDT Procedure Only Urology, [place] [address] [place] [address] Ernesto Villareal MD [address] [place] [address] 06/21/2024 2:15 PM EST Office Visit Urology, [facility] [address] [facility] [place] [address] Valdemar Prado MD [address] [place] [address] 06/23/2024 11:00 AM EST Office Visit Cardiology, [facility] [address] [place] [address] Zak Rubio, DO [address] [place] [address] 06/26/2024 1:00 PM EST Office Visit Neurology [facility] [address] [place] [address] Ellie Duncan MD [address] [place], [place] [address] 06/28/2024 2:30 PM EST Office Visit Otolaryngology [facility] 132 [facility] [place] [address] Dioni Jean-Baptiste, DO [facility] [place] [address] 06/30/2024 4:20 PM EST Office Visit Neurology [facility] [address] [place], [place] [address] Ellie Duncan MD [address] [place], [place] [address] 07/25/2024 2:45 PM EST Office Visit Hematology/Oncology [facility] [address] [place], [place] [phone] Xavi Gramajo MD 200 [facility] [place], [place] [address] 08/28/2024 3:00 PM EST Office Visit [facility] [address] [place] [phone] Chuy Batista MD [address] [place], [place] [phone] 09/14/2024 1:00 PM EST Cardiac Studies Cardiac Studies, [facility] 132 [facility] [place] [address] Health Maintenance Due Date Last Done Comments Albumin/Creatinine Ratio 1963 DTap/Tdap Vaccines (1 - Tdap) 1964 Adult Wellness Visit 02/01/2020 01/31/2019 COVID-19 Vaccine ( season) 2024 07/22/2022, 07/22/2022, 02/11/2022, Additional history exists CKD PHOS USE SMARTSET 82606 09/11/202408/17, 09/11/2023, 07/14/2021, Additional history exists GFR 10/13/2024 04/12/2024, 10/15, 11/03/2023, Additional history exists Depression Screening 12/26/2024 12/27/2023 CKD HGB USE SMARTSET 75289 04/12/202504/12, 04/12/2024, 12/13/2023, Additional history exists Pneumococcal [...] Power of Attor philipp? No Care Teams Buy Boat Operator Relationship Specialty Start Date End Date Damaris Beyer MD [address] [place] [address] PCP - General Internal Medicine 02/27/24 documented as of this encounter
--- OUTSIDE RECORDS SUMMARY | 2024-05-31 10:18 | External Medical Summary | Summary of Care ---
Author Name Unknown Organization [facility] Address [address] [place] [address] Phone [phone] Care Team Providers Care Cash Posting Representative Name Role Phone Damaris Beyer MD Primary Care Provider [phone] Encounter Details Date Type Department Care Team (Late st Contact Info) Description 04/27/2024 Telephone Urology, [place] [address] [place] [address] Kade Fontanez PA-C [address] [place] [address] Allergies Active Allergy Reactions Criticality [...] the morning. 90 Capsule 1 11/12/2023 Active [facility] Wound/Burn Dressing External GelIndications:Pr essure injury [...] mRNA, LNP-s, No Pre serve, 2-Dose Series ([employer]) 05/30/2021,10/29/2020,10/08/2020 COVID-19, LNP-s, No Preserve , Prosper-sucrose, [...] encounter Miscellaneous Notes * Telephone Encounter - Grisel Montgomery OSA - 04/27/2024 2:48 PM EDT Spoke it pts advising that pt needs to stop his Prophylactic antibiotic before starting his new antibiotic. Advised he can resume it 24 hours after he finishes his Ampicillin. was grateful for the call. Thank you ANDRZEJ Huffman 2:51 PM 04/27/2024 * Telephone Encounter - Shara Sanders OSA - 04/27/2024 2:30 PM EDT calling in [...] Script sent to pharmacy Pharmacy Selected: [facility] [id number] [place] Medication Orders Placed This Encounter Medications Ampicillin [...] 05/01/2024 1:00 PM EDT Procedure Only Urology, [place] [address] [place] [address] Ernesto Villareal MD [address] [facility] [place] [address] 06/21/2024 2:15 PM EST Office Visit Urology, [facility] 132 [place] [address] Valdemar Prado MD [address] [place] [address] 06/23/2024 11:00 AM EST Office Visit Cardiology, [facility] 132 [place] [address] Zak Rubio, DO 132 [facility] [place] [address] 06/26/2024 1:00 PM EST Office Visit Neurology [facility] [address] [place] [address] Ellie Duncan MD [address] [place] [address] 06/28/2024 2:30 PM EST Office Visit Otolaryngology [facility] 132 [place] [address] Dioni Jean-Baptiste, DO 132 [facility] [place] [address] 06/30/2024 4:20 PM EST Office Visit Neurology [facility] [address] [place] [address] Ellie Duncan MD [address] [place] [address] 07/25/2024 2:45 PM EST Office Visit Hematology/Oncology [facility] [address] [place] [phone] Xavi Gramajo MD [address] [place] [address] 08/28/2024 3:00 PM EST Office Visit [facility] [place] [address] [place] [facility] [place] [address] Chuy Batista MD [address] [facility] [place] [address] 09/14/2024 1:00 PM EST Cardiac Studies Cardiac Studies, [facility] [address] [facility] [place] [address] Health Maintenance Due Date Last Done Comments Albumin/Creatinine Ratio 1963 DTap/Tdap Vaccines (1 - Tdap) 1964 Adult Wellness Visit 02/01/2020 01/31/2019 COVID-19 Vaccine ( season) 2024 07/22/2022, 07/22/2022, 02/11/2022, Additional history exists CKD PHOS USE SMARTSET 60178 09/11/202408/17, 09/11/2023, 07/14/2021, Additional history exists GFR 10/13/2024 04/12/2024, 10/15, 11/03/2023, Additional history exists Depression Screening 12/26/2024 12/27/2023 CKD HGB USE SMARTSET 07066 04/12/202504/12, 04/12/2024, 12/13/2023, Additional history exists Pneumococcal [...] Power of Attor philipp? No Care Teams Cash Posting Representative Relationship Specialty Start Date End Date Damaris Beyer MD [address] [facility] [place] [address] PCP - General Internal Medicine 02/27/24 documented as of this encounter
--- OUTSIDE RECORDS SUMMARY | 2024-05-31 10:18 | External Medical Summary | Summary of Care ---
Author Name Unknown Organization [facility] Address [address] [place] [address] Phone [phone] Care Team Providers Care Production Corrugator Name Role Phone Damaris Beyer MD Primary Care Provider [phone] Reason for Visit * Reason Comments NEW PATIENT Nail * Evaluate & Treat - Unlimited Visits (Within 10 days (routine)) - Pending Review Specialty Diagnoses / Procedures Referred By Monik de leon Referred To Contact Podiatry Diagnoses Toenail deformity Toenail avulsion, initial encounter Damaris Beyer MD [address] [place] [address] Referral ID Status Reason Start Date Expiration Date Visits Requested Visits Authorized [id number] Pending Review Specialty Services Required 12/27/[phone] Encounter Details Date Type Department Care Team ([facility] st Contact Info) Description 04/25/2024 10:00 AM EDT Office Visit Podiatry [facility] [address] [facility] [place] [address] Damari Norman DPM 132 [facility] [place] [address] Onychomycosis*; Xerosis cutis Allergies Active Allergy Reactions Criticality Noted Date Comments Chocolate Diarrhea 05/14/2023 Chocolate Flavor High 10/09/2023 Other Reaction(s): DIARRHEA/ Cannot take, interacts w/ medications. Clindamycin Hcl 09/24/2005 rash Cranberry 10/20/2023 Iodinated Contrast Media 10/01/2015 Ioversol Other (Please comment) High 08/10/[address] IV DYE Pembrolizumab High 10/10/2023 Other Reaction(s): myocarditis documented as of this encounter (statuses as of 04/25/2024) Medications Medication Sig Dispensed Refills Start Date [...] as of this encounter (statuses as of 04/25/2024) Active Problems Problem Noted Date Diagnosed Date [...] as of this encounter (statuses as of 04/25/2024) Resolved Problems Problem Noted Date Diagnosed Date [...] as of this encounter (statuses as of 04/25/2024) Immunizations Name Administration Dates Next Due COVID-19 mRNA, LNP-s, No Pre serve, 2-Dose Series ([facility]) 05/30/2021,10/29/2020,10/08/2020 COVID-19, LNP-s, No Preserve , Prosper-sucrose, [...] as of this encounter Progress Notes * Damari Norman, RONIM - 04/25/2024 10:42 AM EDT Podiatry New Patient Note [facility] Name: Branden High : 1945 Date: 04/25/2024 CHIEF COMPLAINT: General Foot Care HISTORY OF PRESENT ILLNESS: This patient is a 78 year old male who presents today for general foot care. Pt presents today with his who is providing much of the history. States pt has a history of prostate cancer and has been in an out of facilities recently. She is concerned about the drynessof his feet and his nails. Pt reports no pain to the nails and states this nails have been thickened and discolored for years. He denies any complaints. Past Medical History: Diagnosis Date Adrenal insufficiency [...] Date CATARACT SURGERY,COMPLEX Bilateral REMOVAL OF APPENDIX Family History Problem Relation Name Age of Onset Cancer Mother Cancer Father prostat Cancer Brother prostat Social History Socioeconomic History Marital status: Tobacco Use Smoking status: Never Passive exposure: Never Smokeless tobacco: Never Tobacco comments: passive smoke from at home Vaping Use Vaping status: Never Used Substance and Sexual Activity Alcohol use: No Comment: 1 beer per year Drug use: No Social History Narrative [facility] INFORMATION [...] Social Determinants of Health Financial Resource Strain: Low Risk (12/27/2023) Financial Resource Strain Do you have any trouble paying for your medications, or do you think you might in the future? (Adult - for ages 18 years and over): No Food Insecurity: No Food Insecurity (12/27/2023) Food Insecurity Do you need food for this week? (Adult - for ages 18 years and over): No Transportation Needs: No Transportation Needs (12/27/2023) Transportation Needs Do you have trouble getting a ride to medical visits or work? (Adult - for ages 18 years and over):Never True Social Connections: Socially Integrated (12/27/2023) Social Connections How often do you feel lonely or isolated from those around you? (Adult - for ages 18 years and over): Never Housing Stability: Low Risk (12/27/2023) Housing Stability Do you currently live in a penitentiary or have no steady place to sleep at night? (Adult - for ages 18 years and over): No Do you think you are at risk of becoming homeless? (Adult - for ages 18 years and over): No Current Outpatient Medications Medication Sig Dispense Refill [...] Ellipta 200-62.5-25 MCG/ACT Aerosol Powder Breath Activated (Wnvojgwqhtd-Rxvtxmrnanjk-Avaohefxif) Inhale 1 Puff by mouth every evening. [...] by mouth in the morning. 90Capsule 1 [facility] Wound/Burn Dressing External Gel Apply topically to [...] 1 Tablet by mouth in the morning. Melatonin 3 MG Oral Capsule Take 1 Capsule by mouth at bedtime as needed. (Patient not taking: Reported on 04/03/2024) Magnesium Chloride 64 MG Oral Tablet Take [...] ( Wednesday, Wednesday, Wednesday). 36 Tablet 0 No current facility-administered medications for this visit. ALLERGIES: Review of patient's allergies indicates: Allergen Reactions Chocolate Flavor Other Reaction(s): DIARRHEA/ Cannot take, interacts w/ medications. Ioversol Other (Please comment) CARDIAC ARREST CT IV DYE Pembrolizumab Other Reaction(s): myocarditis Chocolate Diarrhea Clindamycin [Clindamycin Hcl] rash Cranberry Iodinated Contrast Media REVIEW OF SYSTEMS: CONSTITUTIONAL: No change in weight, No weakness, No fatigue, and No fevers, sweats, or chills EYE: No recent significant change in vision and No eye pain, redness, discharge EARS: No ear pain and No recent change in hearing NOSE: No history of frequent colds or sinusitis and No nasal stuffiness PULMONARY: No cough, sputum, or hemoptysis and No recent change in breathing EXTREMITIES: Elongated nails and dry skin SKIN/INTEGUMENTARY: No edema, No rash, and No itching NEUROLOGIC: Normal balance, No headaches, No seizures, and No weakness PSYCHIATRIC: No depression, No anxiety, and No psychosis FOOT FOCUSED PODIATRIC EXAM: Vitals: There were no vitals filed for this visit. General: Patient is awake alert oriented to person place time. No apparent distress. Vascular: DP/PT pulses faintly palpable, but dopplerable. CFT < 3 sec 1-5. No edema noted. Temperature gradient is normal warm to cold. Neurologic: Protective sensation intact to light touch. Sensation to sharp/dull is intact. Dermatological: Skin is thin and dry in appearance with no open lesions or interdigital macerations. Nails 1-5 are thickened, discolored and slightly elongated. Pedal hair is absent, latonya. Musculoskeletal: No POP noted, latonya. No pain with active or passive ROM of the digits or ankle joint, latonya. Muscle strength is 5/5 for all muscle groups of the lower extremity, latonya. DIAGNOSTIC STUDIES: None ASSESSMENT: Onychomycosis Xerosis PLAN: - Advised pt and pts to soak in warm, soapy water for 10-15 min and then apply Vaseline with socks. Do this daily until improved and then as needed. - Explained we are not currently accepting any new nail care/routine patients and have not for over6 years. - List of local nail care providers given. - Activity to tolerance - Continue with good, supportive shoes. - Pt to RTC PRN. Instructed to call with any problems or questions. Damari Norman DPM Referring: Damaris Beyer MD documented in this encounter Nursing Notes * Evelyn Talavera LPN - 04/25/2024 9:45 AM EDT Pt presents for new visit, referred by PCP for toenail deformity. Not painful. Pt's is asking for suggestions for soaking pt's feet, states 'his feet are a mess', pt has been in and out of senior living facilities. Just purchased aloe vera gel for moisturizing, states his feet are dry and cracked. Advised we are unable to accept new nail care pts. documented in this encounter Plan of Treatment Upcoming Encounters Date Type Department Care Team (Late st Contact Info) Description 05/01/2024 1:00 PM EDT Procedure Only Urology, [place] [address] [place] [address] Ernesto Villareal MD [address] [place] [address] 06/21/2024 2:15 PM EST Office Visit Urology, [facility] 132 [place] [address] Valdemar Prado MD [address] [place] [address] 06/23/2024 11:00 AM EST Office Visit Cardiology, [facility] 132 [place] [address] Zak Rubio, DO 132 [place] [address] 06/26/2024 1:00 PM EST Office Visit Neurology [facility] [address] [place] [address] Ellie Duncan MD [address] [place] [address] 06/28/2024 2:30 PM EST Office Visit Otolaryngology [facility] 132 [place] [address] Dioni Jean-Baptiste, DO [address] [place] [address] 06/30/2024 4:20 PM EST Office Visit Neurology [facility] [address] [place] [address] Ellie Duncan MD [address] [place] [address] 07/25/2024 2:45 PM EST Office Visit Hematology/Oncology [facility] [address] [place] [phone] Xavi Gramajo MD [address] [place] [address] 08/28/2024 3:00 PM EST Office Visit [address] [phone] Chuy Batista MD [address] [facility] [address] 09/14/2024 1:00 PM EST Cardiac Studies Cardiac Studies, [facility] [address] [place] [address] Scheduled Referrals Name Type Priority Associated Diagnoses Orde r Schedule PODIATRY REFERRAL OP Referral Within 10 days (routine) Toenail deformity Toenail avulsion, initial encounter Ordered: 12/27/2023 Health Maintenance Due Date Last Done Comments Albumin/Creatinine Ratio 1963 DTap/Tdap Vaccines (1 - Tdap) 1964 Adult Wellness Visit 02/01/2020 01/31/2019 COVID-19 Vaccine ( season) 2024 07/22/2022, 07/22/2022, 02/11/2022, Additional history exists CKD PHOS USE SMARTSET 34554 09/11/202408/17, 09/11/2023, 07/14/2021, Additional history exists GFR 10/13/2024 04/12/2024, 10/15, 11/03/2023, Additional history exists Depression Screening 12/26/2024 12/27/2023 CKD HGB USE SMARTSET 07974 04/12/202504/12, 04/12/2024, 12/13/2023, Additional history exists Pneumococcal [...] as of this encounter Visit Diagnoses Diagnosis Onychomycosis- Primary Dermatophytosis of nail Xerosis cutis Other specified disease of sebaceous glands documented in this encounter Advance Directives * [...] Power of Attor philipp? No Care Teams Production Corrugator Relationship Specialty Start Date End Date Damaris Beyer MD [address] [place] [address] PCP - General Internal Medicine 02/27/24 documented as of this encounter
--- OUTSIDE RECORDS SUMMARY | 2024-05-31 10:18 | External Medical Summary | Summary of Care ---
Author Name Unknown Organization [facility] Address [address] [place] [address] Phone [phone] Care Team Providers Care Line Assembly Utility Worker Name Role Phone Damaris Beyer MD Primary Care Provider [phone] Reason for Visit * Reason Onset Date Comments Appointment 04/21/2024 Return in about 4 months (around 08/21/2024) for recheck . Encounter Details Date Type Department Care Team (Late st Contact Info) Description 04/21/2024 Telephone [facility] [address] [place] [address] Damaris Beyer MD [address] [place] [address] Appointment (Return in about 4 [...] the morning. 90 Capsule 1 11/12/2023 Active [facility] Wound/Burn Dressing External GelIndications:Pr essure injury [...] mRNA, LNP-s, No Pre serve, 2-Dose Series ([employer]) 05/30/2021,10/29/2020,10/08/2020 COVID-19, LNP-s, No Preserve , Prosper-sucrose, [...] encounter Miscellaneous Notes * Telephone Encounter - Erick Osborn OSA - 04/25/2024 8:31 AM EDT Appointment changed * Telephone Encounter - Chuy Batista MD - 04/21/2024 4:20 PM EDT Please change to 08/28/23 at 3 PM * Telephone Encounter - Ania Neal OSA - 04/21/2024 3:27 PM EDT Per 04/21/2024 checkout notes: Return in about 4 months (around 08/21/2024) for recheck . Scheduled first available is October 31. Is this ok or should be patinet be seen sooner? 04/21/2024 documented in this encounter Plan of Treatment Upcoming Encounters Date Type Department Care Team (Late st Contact Info) Description 04/25/2024 10:00 AM EDT Office Visit Podiatry [facility] 132 [facility] [place] [address] Damari Norman DPM 132 [facility] [place] [address] 05/01/2024 1:00 PM EDT Procedure Only Urology, [place] [address] [place] [address] Ernesto Villareal MD [address] [place] [address] 06/21/2024 2:15 PM EST Office Visit Urology, [facility] [address] [facility] [place] [address] Valdemar Prado MD [address] [place] [address] 06/23/2024 11:00 AM EST Office Visit Cardiology, [facility] [address] [place] [address] Zak Rubio, DO [address] [place] [address] 06/26/2024 1:00 PM EST Office Visit Neurology [facility] [address] [place] [address] Ellie Duncan MD 200 [facility] [place] [address] 06/28/2024 2:30 PM EST Office Visit Otolaryngology [facility] 132 [place] [address] Dioni Jean-Baptiste, DO [facility] [place] [address] 06/30/2024 4:20 PM EST Office Visit Neurology [facility] [address] [place], [place] [address] Ellie Duncan MD 200 [facility] [place] [address] 07/25/2024 2:45 PM EST Office Visit Hematology/Oncology [facility] [address] [facility] [place] [address] Xavi Gramajo MD 200 [facility] [place] [address] 08/28/2024 3:00 PM EST Office Visit [facility] [address] [place] [phone] Chuy Batista MD [address] [place], [place] [phone] 09/14/2024 1:00 PM EST Cardiac Studies Cardiac Studies, [facility] [address] [place] Health Maintenance Due Date Last Done Comments Albumin/Creatinine Ratio 1963 DTap/Tdap Vaccines (1 - Tdap) 1964 Adult Wellness Visit 02/01/2020 01/31/2019 COVID-19 Vaccine ( season) 2024 07/22/2022, 07/22/2022, 02/11/2022, Additional history exists CKD PHOS USE SMARTSET 43768 09/11/202408/17, 09/11/2023, 07/14/2021, Additional history exists GFR 10/13/2024 04/12/2024, 10/15, 11/03/2023, Additional history exists Depression Screening 12/26/2024 12/27/2023 CKD HGB USE SMARTSET 65599 04/12/202504/12, 04/12/2024, 12/13/2023, Additional history exists Pneumococcal [...] Power of Attor philipp? No Care Teams Line Assembly Utility Worker Relationship Specialty Start Date End Date Damaris Beyer MD [address] [place] [address] PCP - General Internal Medicine 02/27/24 documented as of this encounter
--- OUTSIDE RECORDS SUMMARY | 2024-05-31 10:18 | External Medical Summary | Summary of Care ---
Author Name Unknown Organization [facility] Address [address] [place] [address] Phone [phone] Care Team Providers Care Templer Head Name Role Phone Damaris Beyer MD Primary Care Provider [phone] Reason for Visit * Reason Comments Cystoscopy Encounter Details Date Type Department Care Team (Latest Contact Info) Description 05/01/2024 1:00 PM EDT Procedure Only Urology, [place] [address] [place] [address] Ernesto Villareal MD [address] [place] [address] Hx of bladder cancer* Allergies Active Allergy Reactions Criticality Noted Date [...] the morning. 90 Capsule 1 11/12/2023 Active [facility] Wound/Burn Dressing External GelIndications:Pr essure injury of [...] mRNA, LNP-s, No Pre serve, 2-Dose Series ([employer]) 05/30/2021,10/29/2020,10/08/2020 COVID-19, LNP-s, No Preserve , Prosper-sucrose, [...] No 12/27/2023 Does the household have a [facility] source of income? 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 He had a repeat resection in 06/2023 revealing the same. He has a history of prostate cancer treated with EBRT in 2017 and developed subsequent radiation cystitis with hematuria, urgency, frequency and low bladder capacity. His most recent PSA is 0.05 in 03/2024. Given his low capacity bladder and voiding symptoms, he was felt to no be a candidate for intravesical therapy and was given pembrolizumab. He developed myocarditis and stopped the treatment. Cystoscopy in 10/2023 showed no tumors. He developed urinary retention and hematuria in 11/2023 and acatheter was placed. He had recurrent hematuria in 02/2024 and had a cystoscopy with Dr. Prado which showed severe trabeculations, radiation changes, and dystrophic calcification at the bladder neck. ANTIBIOTIC PROPHYLAXIS: ampicillin FINDINGS: EXTERNAL GENITALIA: Unremarkable. URETHRA: Without stricture or lesion. PROSTATE: friable urethra mucosa, dystrophic calcification at bladder neck BLADDER: Very small capacity, catheter edema on posterior wall, severe trabeculations and multiple cellules.No papillary tumors. DESCRIPTION OF PROCEDURE: After a preoperative evaluation and obtaining legal consent, the patient was brought to the clinic suite and placed in a supine position. The genitalia was prepped and draped in the standard sterile fashion. 2% Lidocaine gel was introduced per urethra. Time out was performed. Cystourethroscopy was performed in a systematic fashion. The scope was retroflexed to visualize the anterior wall and bladder neck. A bladder washing was performed to obtain a cytology specimen.. The patient tolerated the procedure well. ASSESSMENT: 78 year old male with cTa high-grade urothelial carcinoma of the bladder, JACKIE, prostatecancer JACKIE PLAN: - Cystoscopy in 3-4 months, follow-up on cytology - Leave tatum for urinary retention per his preference - PSA in 6 months Ernesto Villareal MD Department of Urology documented in this encounter Plan of Treatment Upcoming Encounters Date Type Department Care Team (Late st Contact Info) Description 06/21/2024 2:15 PM EST Office Visit Urology, [facility] [address] [place] [address] Valdemar Prado MD [address] [place] [address] 06/23/2024 11:00 AM EST Office Visit Cardiology, [facility] [address] [place] [address] Zak Rubio, DO [address] [place] [address] 06/26/2024 1:00 PM EST Office Visit Neurology [facility] [address] [place] [address] Ellie Duncan MD 200 [facility] [place] [address] 06/28/2024 2:30 PM EST Office Visit Otolaryngology [facility] [address] [place] [address] Dioni Jean-Baptiste DO [address] [place] [address] 06/30/2024 4:20 PM EST Office Visit Neurology [facility] [address] [place] [address] Ellie Duncan MD 200 [facility] [place] [address] 07/25/2024 2:45 PM EST Office Visit Hematology/Oncology [facility] 200 [facility] [place], [place] [phone] Xavi Gramajo MD [address] [facility] [place], [place] [address] 08/28/2024 3:00 PM EST Office Visit Family [facility] [address] [place] [phone] Chuy Batista MD [address], [place] [phone] 09/04/2024 1:00 PM EST Procedure Only Urology, [place] [address] [place] [address] Ernesto Villareal MD [address] [place] [address] 09/14/2024 1:00 PM EST Cardiac Studies Cardiac Studies, [facility] [address] [place] [address] Pending Results Name Type Priority Associated Diagnoses Date /Time CYTOLOGY Pathology Routine Hx of bladder cancer 05/01/2024 3:46 PM EDT Scheduled Orders Name Type Priority Associated Diagnoses Orde r Schedule CYTOLOGY Pathology Routine Hx of bladder cancer Expected: 05/01/2024, Expires: 05/31/2025 Health Maintenance Due Date Last Done Comments Albumin/Creatinine Ratio 1963 DTap/Tdap Vaccines (1 - Tdap) 1964 Adult Wellness Visit 02/01/2020 01/31/2019 COVID-19 Vaccine ( season) 2024 07/22/2022, 07/22/2022, 02/11/2022, Additional history exists CKD PHOS USE SMARTSET 20559 09/11/202408/17, 09/11/2023, 07/14/2021, Additional history exists GFR 10/13/2024 04/12/2024, 03/04/2024, 11/03/2023, Additional history exists Depression Screening 12/26/2024 12/27/2023 CKD HGB USE SMARTSET 32364 04/12/202504/12, 04/12/2024, 12/13/2023, Additional history exists Pneumococcal [...] as of this encounter Visit Diagnoses Diagnosis Hx of bladder cancer- Primary Personal history of malignant neoplasm of bladder documented in this encounter Advance Directives * [...] Power of Attor philipp? No Care Teams Templer Head Relationship Specialty Start Date End Date Damaris Beyer MD [address] [place] [address] PCP - General Internal Medicine 02/27/24 documented as of this encounter
--- OUTSIDE RECORDS SUMMARY | 2024-05-31 10:19 | External Medical Summary | Summary of Care ---
Author Name Unknown Organization [facility] Address [address] [place] [address] Phone [phone] Care Team Providers Care Pediatric Nephrologist Name Role Phone Damaris Beyer MD Primary Care Provider [phone] Reason for Visit * Reason Onset Date Comments Appointment 04/21/2024 Return in about 4 months (around 08/21/2024) for recheck . Encounter Details Date Type Department Care Team (Late st Contact Info) Description 04/21/2024 Telephone [facility] [place] [address] [place] [address] Damaris Beyer MD [address] [place] [address] Appointment (Return in about 4 [...] as of this encounter (statuses as of 04/21/2024) Medications Medication Sig Dispensed Refills Start Date [...] the morning. 90 Capsule 1 11/12/2023 Active [facility] Wound/Burn Dressing External GelIndications:Pr essure [...] as of this encounter (statuses as of 04/21/2024) Active Problems Problem Noted Date Diagnosed Date [...] as of this encounter (statuses as of 04/21/2024) Resolved Problems Problem Noted Date Diagnosed Date [...] as of this encounter (statuses as of 04/21/2024) Immunizations Name Administration Dates Next Due COVID-19 mRNA, LNP-s, No Pre serve, 2-Dose Series ([employer]) 05/30/2021,10/29/2020,10/08/2020 COVID-19, LNP-s, No Preserve , Prosper-sucrose, [...] 04/25/2024 10:00 AM EDT Office Visit Podiatry [facility] [address] [place] [address] Damari Norman DPM [address] [place] [address] 05/01/2024 1:00 PM EDT Procedure Only Urology, [place] [address] [place] [address] Ernesto Villareal MD [address] [place] [address] 06/21/2024 2:15 PM EST Office Visit Urology, [facility] [address] [place] [address] Valdemar Prado MD [address] [facility] [place] [address] 06/23/2024 11:00 AM EST Office Visit [facility]iology, [facility] [place] [address] Zak Rubio DO [address] [place] [address] 06/26/2024 1:00 PM EST Office Visit Neurology [facility] [address] [place] [address] Ellie Duncan MD 200 [facility] [place] [address] 06/28/2024 2:30 PM EST Office Visit Otolaryngology [facility] 132 [facility] [place] [address] Dioni Jean-Baptiste DO [address] [place] [address] 06/30/2024 4:20 PM EST Office Visit Neurology [facility] 200 [facility] [place] [address] Ellie Duncan MD 200 [facility] [place] [address] 07/25/2024 2:45 PM EST Office Visit Hematology/Oncology [facility] 200 [facility] [place] [phone] Xavi Gramajo MD 200 [facility] [place] [address] 09/14/2024 1:00 PM EST Cardiac Studies Cardiac Studies, [facility] [address] [facility] [place] [address] 10/31/2024 1:20 PM EDT Office Visit [facility] [address] [place] [phone] Chuy Batista MD [address] [place] [address] Health Maintenance Due Date Last Done Comments Albumin/Creatinine Ratio 1963 DTap/Tdap Vaccines (1 - Tdap) 1964 Adult Wellness Visit 02/01/2020 01/31/2019 COVID-19 Vaccine ( season) 2024 07/22/2022, 07/22/2022, 02/11/2022, Additional history exists CKD PHOS USE SMARTSET 47301 09/11/202408/17, 09/11/2023, 07/14/2021, Additional history exists GFR 10/13/2024 04/12/2024, 10/15, 11/03/2023, Additional history exists Depression Screening 12/26/2024 12/27/2023 CKD HGB USE SMARTSET 47099 04/12/202504/12, 04/12/2024, 12/13/2023, Additional history exists Pneumococcal [...] Power of Attor philipp? No Care Teams Pediatric Nephrologist Relationship Specialty Start Date End Date Damaris Beyer MD [address] [place] [address] PCP - General Internal Medicine 02/27/24 documented as of this encounter
--- OUTSIDE RECORDS SUMMARY | 2024-05-31 10:19 | External Medical Summary | Summary of Care ---
Author Name Unknown Organization [facility] Address [address] [place] [address] Phone [phone] Care Team Providers Care Nutrition Representative Name Role Phone Damaris Beyer MD Primary Care Provider [phone] Reason for Visit * Reason Onset Date Comments Appointment 04/21/2024 Return in about 4 months (around 08/21/2024) for recheck . Encounter Details Date Type Department Care Team (Late st Contact Info) Description 04/21/2024 Telephone [facility] [address] [place] [address] Damaris Beyer MD [address] [place] [address] Appointment (Return in about 4 [...] the morning. 90 Capsule 1 11/12/2023 Active [facility] Wound/Burn Dressing External GelIndications:Pr essure [...] mRNA, LNP-s, No Pre serve, 2-Dose Series ([employer] [facility]) 05/30/2021,10/29/2020,10/08/2020 COVID-19, LNP-s, No Preserve , [...] 04/25/2024 10:00 AM EDT Office Visit Podiatry [facility] [address] [place] [address] Damari Norman DPM [address] [place] [address] 05/01/2024 1:00 PM EDT Procedure Only Urology, [place] [address] [place] [address] Ernesto Villareal MD [address] [place] [address] 06/21/2024 2:15 PM EST Office Visit [facility], [facility] [place] [address] Valdemar Prado MD [address] [place] [address] 06/23/2024 11:00 AM EST Office Visit Cardiology, [facility] [place] [address] Zak Rubio DO [address] [place] [address] 06/26/2024 1:00 PM EST Office Visit Neurology [facility] [address] [place] [address] Ellie Duncan MD 200 [facility] [place] [address] 06/28/2024 2:30 PM EST Office Visit Otolaryngology [facility] 132 [place] [address] Dioni Jean-Baptiste DO 132 [place] [address] 06/30/2024 4:20 PM EST Office Visit Neurology [facility] [address] [place] [address] Ellie Duncan MD [address] [facility] [place] [address] 07/25/2024 2:45 PM EST Office Visit Hematology/Oncology [facility] [address] [facility] [place] [address] Xavi Gramajo MD [address] [facility] [place] [address] 09/14/2024 1:00 PM EST Cardiac Studies Cardiac Studies, [facility] [address] [place] [address] 10/31/2024 1:20 PM EDT Office Visit [facility] [address] [place] [address] Chuy Batista MD [address] [place], [place] [phone] Health Maintenance Due Date Last Done Comments Albumin/Creatinine Ratio 1963 DTap/Tdap Vaccines (1 - Tdap) 1964 Adult Wellness Visit 02/01/2020 01/31/2019 COVID-19 Vaccine ( season) 2024 07/22/2022, 07/22/2022, 02/11/2022, Additional history exists CKD PHOS USE SMARTSET 04641 09/11/202408/17, 09/11/2023, 07/14/2021, Additional history exists GFR 10/13/2024 04/12/2024, 10/15, 11/03/2023, Additional history exists Depression Screening 12/26/2024 12/27/2023 CKD HGB USE SMARTSET 45441 04/12/202504/12, 04/12/2024, 12/13/2023, Additional history exists Pneumococcal [...] Power of Attor philipp? No Care Teams Nutrition Representative Relationship Specialty Start Date End Date Damaris Beyer MD [address] [place] [facility] [place] [address] PCP - General Internal Medicine 02/27/24 documented as of this encounter
[2024-05-31] MEDS: FOLIC ACID 400 MCG TAB PO SCH (11:36)
[2024-05-31] MEDS: ASPIRIN 81 MG ECTAB PO SCH (11:37)
[2024-05-31] MEDS: ASCORBIC ACID 500 MG TAB PO SCH (11:37)
[2024-05-31] MEDS: CYANOCOBALAMIN (B-12) 500 MCG TABLET PO SCH (11:38)
[2024-05-31] MEDS: MEMANTINE HCL 5 MG TAB PO SCH (11:38)
[2024-05-31] MEDS: FLUDROCORTISONE ACETATE 0.1 MG TAB PO SCH (11:38)
[2024-05-31] MEDS: FERROUS SULFATE 325 MG TAB PO SCH (11:39)
[2024-05-31] MEDS: MIDODRINE HCL 2.5 MG TAB PO SCH (11:39)
[2024-05-31] MEDS: SERTRALINE HCL 50 MG TABLET PO SCH (11:39)
[2024-05-31] MEDS: MAGNESIUM CHLORIDE W/CALCIUM 64MG DELAYED REL TAB PO SCH (11:39)
[2024-05-31] MEDS: UMECLIDINIUM/VILANTEROL 62.5/25MCG 7 PUFFS/INHALER INH SCH (11:40)
[2024-05-31] MEDS: MULTIVITAMIN TAB PO SCH (11:40)
[2024-05-31] MEDS: PANTOprazole 40 MG TAB PO SCH (11:40)
[2024-05-31] MEDS: OXYBUTYNIN CHLORIDE XL 5 MG TABCR PO SCH (11:40)
[2024-05-31] MEDS: FLUTICASONE FUROATE 200MCG 14 PUFFS/INHALER INH SCH (11:41)
[2024-05-31] MEDS: PIPERACILLIN/TAZOBACTAM 4.5 GM/100 ML BAG IV SCH (11:42)
[2024-05-31] MEDS: CHOLECALCIFEROL 125 MCG (5,000 UNITS) TAB PO SCH (11:42)
[2024-05-31] MEDS ORDERED: oxyCODONE HCL IR 5 MG TAB (IMMEDIATE RELEASE) PO PRN (13:57)
[2024-05-31] MEDS: ACETAMINOPHEN 325 MG TAB PO PRN (14:30)
[2024-05-31] MEDS: HYDROCORTISONE SOD 100 MG in SYRINGE 0 ML IV SCH (14:31)
[2024-05-31] MEDS: HEPARIN SOD 5,000 UNIT/0.5 ML VIAL SQ SCH (14:33)
[2024-05-31] MEDS ORDERED: HYDROCORTISONE SOD SUCCINATE 100 MG/2 ML VIAL IV SCH (15:00)
--- NOTE | 2024-05-31 15:01 | Pharmacy Report ---
Pharmacy PK ABX Note - Date of Service May 31, 2024 - Assessment and Plan Assessment * 78 year old M receiving pip/tazo and vanco for treatment of sepsis 2nd UTI. * VIOLETA noted * Ongoing vancomycin may not be indicated - reached out to Dr. Manjarrez. Will wait to dose again until tomorrow AM, pending level and provider assessment. Plan Vancomycin * Loading dose: 2000 mg IV x 1 * Random level ordered for tomorrow AM Pharmacy will continue to follow and will adjust dose/frequency as necessary. Thank you. Pharmacy has transitioned to AUC monitoring for vancomycin. AUC/DEBORA is the preferred PK/PD target and is associated with decreased risk of nephrotoxicity compared to traditional trough targets.
--- OUTSIDE RECORDS SUMMARY | 2024-05-31 15:57 | External Medical Summary | Summary of Care ---
Author Name Unknown Organization [facility] Address [address] [place] [address] Phone [phone] Care Team Providers Care Sizing Machine And Drier Operator Name Role Phone Arnold Willis MD Primary Care Provider [phone] Reason for Visit * Reason Onset Date Comments Medication Question 05/30/2024 Encounter Details Date Type Department Care Team (Late st Contact Info) Description 05/30/2024 Telephone [facility] [address] [place] [address] Damaris Beyer MD [address] [place] [address] Medication Question Allergies Active Allergy Reactions Criticality Noted Date Comments Chocolate Diarrhea 05/14/2023 Chocolate Flavor High 10/09/2023 Other Reaction(s): DIARRHEA/ Cannot take, interacts w/ medications. Clindamycin Hcl 09/24/2005 rash Cranberry 10/20/2023 Iodinated Contrast Media 10/01/2015 Ioversol Other (Please comment) High 08/10/[address] IV DYE Pembrolizumab High 10/10/2023 Other Reaction(s): myocarditis documented as of this encounter (statuses as of 05/31/2024) Medications Medication Sig Dispensed Refills Start Date [...] 90 Capsule 1 11/12/2023 Active [facility] Wound/Burn Dressing External GelIndications:Pr essure injury [...] as of this encounter (statuses as of 05/31/2024) Active Problems Problem Noted Date Diagnosed Date [...] as of this encounter (statuses as of 05/31/2024) Resolved Problems Problem Noted Date Diagnosed Date [...] as of this encounter (statuses as of 05/31/2024) Immunizations Name Administration Dates Next Due COVID-19 mRNA, LNP-s, No Pre serve, 2-Dose Series ([employer]) 05/30/2021,10/29/2020,10/08/2020 COVID-19, LNP-s, No Preserve , [...] encounter Miscellaneous Notes * Telephone Encounter - Leesa Salazar LPN - 05/31/2024 7:50 AM EDT Pt's stated he fell last night and was taken to the hospital via ambulance. She was told he was septic. He is currently getting IV fluids and going to be admitted. Pt's seemed very tired. * Addendum Note - Arnold Willis MD [...] today. * Telephone Encounter - Diana James nitroglycerin nitrator operator batch - 05/30/2024 2:58 PM EDT Pt calling with complaints of UTI symptoms and is requesting a medication be prescribed. Pt did want to schedule an appointment at this time. Call details was not completed because transferred over to nurse at Dr's office. Please advise. Thank you, Diana James CPhT Space Physicist [facility] 05/30/2024,2:58 PM documented in this encounter Plan of Treatment Upcoming Encounters Date Type Department Care Team (Late st Contact Info) Description 06/21/2024 2:15 PM EST Office Visit Urology, [facility] [place] [address] Valdemar Prado MD [address] [place] [address] 06/23/2024 11:00 AM EST Office Visit Cardiology, [facility] [address] [place] [address] Zak Rubio, DO [address] [facility] [address] 06/28/2024 2:30 PM EST Office Visit Otolaryngology [facility] [address] [place] [address] Dioni Jean-Baptiste DO [address] [facility] [place] [address] 06/30/2024 4:20 PM EST Office Visit Neurology [facility] 200 [facility] [place] [address] Ellie Duncan MD [address] [facility] [place] [address] 07/25/2024 2:45 PM EST Office Visit Hematology/Oncology [facility] [place] [address] [facility] [place] [phone] Xavi Gramajo MD [address] [facility] [place] [address] 08/28/2024 3:00 PM EST Office Visit Family [facility] [place] [address] [place] [phone] Arnold Willis MD [address] [place] [address] 09/04/2024 1:00 PM EST Procedure Only Urology, [place] [address] [place] [address] Ernesto Villareal MD [address] [place], [place] [phone] 09/14/2024 1:00 PM EST Cardiac Studies Cardiac Studies, [facility] [address] [place], [place] [phone] Scheduled Orders Name Type Priority Associated Diagnoses [...] Additional history exists CKD PHOS USE SMARTSET 30642 09/11/202408/17, 09/11/2023, 07/14/2021, Additional history exists GFR 10/13/2024 04/12/2024, 10/15, 11/03/2023, Additional history exists Depression Screening 12/26/2024 12/27/2023 CKD HGB USE SMARTSET 43550 04/12/202504/12, 04/12/2024, 12/13/2023, Additional history exists Pneumococcal [...] Power of Attor philipp? No Care Teams Sizing Machine And Drier Operator Relationship Specialty Start Date End Date Arnold Willis MD [address] [place] [facility] [place] [address] PCP - General Family Medicine 05/31/24 documented as of this encounter
[2024-05-31] MEDS: LIDOCAINE 5% 1 PATCH TD SCH (16:20)
[2024-05-31 19:31] LABS: A calco-baum cmplx NotReported Not Detected (NotDetected); Bact fragilis Not Reported Not Detected (NotDetected); Blood Culture Id Panel See PCR Comment (NotDetected); C auris Not Reported Not Detected (NotDetected); Calbicans Not Reported Not Detected (NotDetected); Candida glabrata Not Reported Not Detected (NotDetected); Candida krusei Not Reported Not Detected (NotDetected); Cneoformans/gatti Not Reported Not Detected (NotDetected); Cparapsilosis Not Reported Not Detected (NotDetected); E cloacae compx Not Reported Not Detected (NotDetected); Efaecalis Not Reported DETECTED (NotDetected); Efaecium Not Reported Not Detected (NotDetected); Enterobacterales Not Reported Not Detected (NotDetected); Escherichia coli Not Reported Not Detected (NotDetected); H influenzae Not Reported Not Detected (NotDetected); K aerogenes Not Reported Not Detected (NotDetected); Koxytoca Not Reported Not Detected (NotDetected); Kpneumoniae grp Not Reported Not Detected (NotDetected); Lmonocyt Not Reported Not Detected (NotDetected); N meningitidis Not Reported Not Detected (NotDetected); P aeruginosa Not Reported Not Detected (NotDetected); Proteus spp Not Reported Not Detected (NotDetected); Salmonella spp Not Reported Not Detected (NotDetected); Staph lugdunensis Not Reported Not Detected (NotDetected); Staph spp. Not Reported Not Detected (NotDetected); Staphaureus Not Reported Not Detected (NotDetected); Staphepi Not Reported Not Detected (NotDetected); Stenmaltophilia Not Reported Not Detected (NotDetected); Strep agal(GrpB) Not Reported Not Detected (NotDetected); Strep pneum Not Reported Not Detected (NotDetected); Strep pyog (GrpA) Not Reported Not Detected (NotDetected); Strep spp Not Reported Not Detected (NotDetected); VanAB Resistant Gene VRE Not Detected (NotDetected)
[2024-05-31 19:46] LABS: Enterococcus faecalis DETECTED (NotDetected)
[2024-06-01 06:09] LABS: BUN Creatinine Ratio 15.9 (10-20); Calcium 7.9 mg/dl (8.6-10.3); Creatinine Clr Calc Pharmacy 62.7 ml/min; Magnesium 1.9 mg/dl (1.7-2.4); Phosphorus 2.9 mg/dl (2.5-4.9); Potassium 3.7 mmol/L (3.5-5.1)
[2024-06-01 06:12] LABS: Hematocrit (blood only) 35.9 % (42.0-52.0); Hemoglobin 12.1 g/dl (14.0-18.0); Immature Granulocytes # (auto) 0.03 K/uL (0.01-0.20); Immature Granulocytes % (auto) 0.4 %; Lymphocytes # (auto) 0.61 K/uL (1.20-3.40); Lymphocytes % (auto) 7.8 %; Mean Corpuscular Hgb Conc 33.7 g/dL (32.0-36.0); Mean Corpuscular Volume 89.1 fL (80.0-100.0); Mean Platelet Volume 9.2 fL (9.4-12.4); Monocytes # (auto) 0.37 K/uL (0.11-0.59); Monocytes % (auto) 4.7 %; Neutrophils # (auto) 6.85 K/uL (1.40-6.50); Neutrophils % (auto) 87.1 %; Platelet Count 146 K/uL (130-400); RDW Coefficient of Variation 14.3 % (11.5-14.5); RDW Standard Deviation 46.5 fL (36.4-46.3); Red Blood Count 4.03 M/uL (4.70-6.10); White Blood Count 7.86 K/ul (4.8-10.8)
[2024-06-01] MEDS: oxyCODONE HCL IR 5 MG TAB (IMMEDIATE RELEASE) PO PRN (07:57)
[2024-06-01] MEDS: MIDODRINE HCL 2.5 MG TAB PO SCH (07:59)
[2024-06-01] MEDS ORDERED: VANCOMYCIN 1,250mg in D5W 250mL (Use w/ NSS Shortage) IV ONE (09:00)
--- NOTE | 2024-06-01 11:38 | Hospitalist Progress Note ---
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 Patient chronically immunosuppressed due to steroid therapy. High risk for worsening of condition if not cared for in the hospital. Source of Enterococcus infection unclear, presumed to be urinary source. Reviewing of the EMR shows that he has had Enterococcus in his urine previously. Patient complaining of back pain, possibly due to pyelonephritis versus spinal source for his infection, check CT of the lumbar spine. Therapies Narrow antibiotics based on previous sensitivities Consult infectious disease for ongoing recommendations had in the setting of a gram-positive bacteremia Blood pressure has stabilized can decrease steroids from this stress dose levels Saline lock IV fluids Taras Middletonarmando Update via phone . Extensive amount of time spent on the phone. She states that his home hydrocortisone dose was 20 in the morning and 10 in the afternoon evening also states that his amantadine dose was 10 mg 2 times daily. 55 minutes spent on coordination care, review of records, communication with family, evaluation patient bedside Admission and Anticipated Discharge Date Admission Date: May 31, 2024 Subjective Patient reports feeling a little bit better, states he still seems to be a bit confused. Still complaining of back pain Physical Exam Physical Exam: Constitutional: Alert, nontoxic in appearance, however does appear ill HEENT: Mucous membranes slightly dry Lungs: Decreased breath sounds bilaterally, no wheezing CV: S1-S2, regular Abdomen: Soft, nontender, nondistended Extremities: No significant edema Musculoskeletal: some lumbosacral tenderness to palpation Neuro: No focal deficits, generalized weakness Psych: Cooperative, normal mood Results & Data Results & Data Vital Signs (Past 12 Hours) Vital Signs Temp Pulse Pulse Resp BP Pulse Ox O2 Del Method 06/01/24 11:20 78 06/01/24 07:39 37.1 C 75 18 145/74 H 97 Room Air 06/01/24 03:32 37.1 C 65 20 149/82 H 98 Room Air Diagnostic Findings Reviewed imaging, laboratory and diagnostic studies. Pertinent findings as below. Blood cultures positive for Enterococcus WBCs 7.8, improved Hemoglobin 12.1 Electrolytes stable Creatinine 1.32 (4) COPD (chronic obstructive pulmonary disease) COPD type: unspecified COPD Qualified Code(s): J44.9 - Chronic obstructive pulmonary disease, unspecified (8) Dementia Dementia type: unspecified type Dementia severity: unspecified severity Dementia behavioral or psychological symptom: without behavioral, psychotic, or mood disturbance or anxiety Qualified Code(s): F03.90 - Unspecified dementia, unspecified severity, without behavioral disturbance, psychotic disturbance, mood disturbance, and anxiety
--- NOTE | 2024-06-01 13:56 | CT Scan Report ---
ABDOMEN AND PELVIS CT WITHOUT CONTRAST; CT LUMBAR SPINE WITHOUT IV CONTRAST CT DOSE: 1676.25 mGy.cm HISTORY: Acute pelvis and low back pain in a patient with history of bladder carcinoma. bladder canc er, pyleonephritis TECHNIQUE: Multiaxial CT images of the abdomen, pelvis and lumbar spine were performed without contra st. A dose lowering technique was utilized adhering to the principles of ALARA. COMPARISON STUDY: CT abdomen and pelvis 09/09/2023. FINDINGS: CT ABDOMEN/PELVIS: Small pericardial and pleural effusions. Mild dependent subsegmental bibasilar ate lectasis. No free air. Unenhanced spleen, pancreas, gallbladder, adrenal glands and liver. Cortical t hinning of the kidneys with mild nonspecific bilateral perinephric stranding. A 3 mm nonobstructing c alculus of the superior pole right kidney. No ureteral calculi or hydronephrosis. Probable cyst of th e superior pole left kidney, 1.5 cm. Decompressed urinary bladder with Devlin catheter in place. Prost atectomy. Atherosclerosis of the aorta. Infrarenal IVC filter. No lymphadenopathy. No bowel obstruction or bowel wall thickening. No ascites or mesenteric inflammation. Diastases recti . Bones appear grossly intact. 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 L4-L5 disc space is similar to the prior study. CT LUMBAR SPINE: Moderate intervertebral disc space narrowing with bridging osteophytosis at L4-L5. I rregularity of the disc space at this level is similar to the 09/09/2023 exam. No acute fracture or quintana bluxation. Suboptimal evaluation of the central canal and neural foramina by CT technique. No high-gr natanael central canal stenosis is identified. Mild central canal stenosis at L4-L5 with mild bilateral fo raminal narrowing. IMPRESSION: 1. Right nephrolithiasis. No ureteral calculi or hydronephrosis. 2. No bowel obstruction or bowel wall thickening. 3. No acute lumbar spine fracture is identified. 4. Trace pleural and pericardial effusions. 5. Additional incidental findings as above. ACT 112: Negative or not required by law. The above report was generated using voice recognition software. It may contain grammatical, syntax o r spelling errors. Dictated: 06/01/2024 12:46 PM Transcribed: 06/01/2024 1:09 PM Neto [id number] [email or web address] Electronically signed by: Chaim Curiel M.D. 06/01/2024 1:54 PM
[2024-06-01] MEDS: AMPICILLIN 2,000 MG in SODIUM CHLOR 0.9% MINI-B 100 ML IV SCH (14:36)
[2024-06-01] MEDS: HYDROCORTISONE SOD 50 MG in SYRINGE 0 ML IV SCH (14:37)
[2024-06-01] MEDS: MEMANTINE HCL 10 MG TAB PO SCH (20:29)
[2024-06-02 07:44] LABS: Hematocrit (blood only) 37.1 % (42.0-52.0); Hemoglobin 12.4 g/dl (14.0-18.0); Mean Corpuscular Hemoglobin 29.5 pg (25.0-34.0); Mean Corpuscular Hgb Conc 33.4 g/dL (32.0-36.0); Mean Corpuscular Volume 88.3 fL (80.0-100.0); Mean Platelet Volume 9.4 fL (9.4-12.4); Platelet Count 161 K/uL (130-400); RDW Standard Deviation 45.4 fL (36.4-46.3); White Blood Count 8.13 K/ul (4.8-10.8)
[2024-06-02 07:52] LABS: BUN Creatinine Ratio 16.5 (10-20); Calcium 8.3 mg/dl (8.6-10.3); Creatinine Clr Calc Pharmacy 81.2 ml/min; Magnesium 1.9 mg/dl (1.7-2.4); Potassium 3.3 mmol/L (3.5-5.1)
[2024-06-02] MEDS: SULFAMETHOXAZOLE/TRIMETHOPRIM DS 800/160MG TAB PO SCH (08:53)
--- NOTE | 2024-06-02 13:56 | Infectious Disease Consult ---
Date of Service June 02, 2024 Telehealth Information I performed this visit using a real-time telehealth connection between my location and the patients location ([facility]). After connecting through interactive tele-video, patient was identified by name and date of and/or wristband check.Patient (or authorized healthcare insurance verification representative) was informed that this was a telemedicine visit and it was being conducted confidentially over secure lines. My office door was closed and no one else was present in the room with me.Patient (or authorized healthcare insurance verification representative) provided consent to proceed with the visit, expressed an understanding of privacy and security of the telemedicine visit, and gave permission to have a hospital insurance verification representative in the room in order to assist with the visit and to conduct portions of the visit, as needed. I informed the patient (or authorized healthcare insurance verification representative) that I reviewed their record and presented the opportunity for them to ask any questions regarding the visit today. The patient agreed to participate. Assessment & Plan (1) Bacteremia due to Enterococcus: Plan: Assessment: Sepsis - resolved E faecalis bacteremia Presumed complicated UTI Hx of urinary incontinence w/ chronic tatum, bladder CA s/p surgery, prostate CA s/p radiation therapy Recommendations: - Stop bactrim - Continue ampicillin 2 gm iv q4 hours or 12 gm continuous infusion over 24 hours - F/u repeat blood cultures today to make sure the bacteremia clears - Echo to r/o endocarditis given heavy burden of bacteremia - Anticipate total 2 weeks of iv ampicillin from negative blood cultures if the bacteremia clears promptly and the echo shows no obvious evidence of endocarditis Although there are multiple organisms in urine, it is possible that the Enterococcus alone is the culprit here: colonization w/ multiple organisms is not uncommon in patient w/ chronic tatum. I would get echo to r/o endocarditis given such high burden of bacteremia. I spent a total of 60 minutes coordinating, documenting, and providing care for this patient excluding time spent in the performance of separately billed services or time spent by another provider/QHP. (2) Complicated UTI (urinary tract infection): History of Present Illness History of Present Illness This is a 78 y/o male (Todd) w/ hx of adrenal insufficiency on chronic steroids, COPD, ANDRZEJ, DVT/PE s/p IVC filter (not on anticoagulation), bladder CA s/p surgery, medication-induced chronic myocarditis, prostate CA s/p radiation therapy, valvular heart disease, HTN w/ orthostatic hypotension, chronic anemia, urinary incontinence w/ chronic tatum, chronic venous insufficiency, CKDIII, and dementia, who presented to [facility] on 05/[facility]24 after a fall at home about 3 days ago. He was found to have fever and leukocytosis. Foul-smelling urine was reported w/ lower back pain and pyuria. Blood cultures showed E faecalis (4 out of [address] showed R kidney stone but no obvious hydronephrosis. He is doing better overall today. He has sharp pain in R buttock and lower back which have been going on for 1-2 weeks. PT/OT is improving the pain. Mild, intermittent coughing but no cp. No abd pain, n/v, or chronic diarrhea. He has a new tatum now. No valve replacement, cardiac device or prosthetic device Allergies Allergy/AdvReac Type Severity Reaction Status Date / Time Iodinated Contrast Media Allergy Severe LOVERSOL---CARDIAC Verified 01/04/24 15:[address] CONTRAST clindamycin Allergy Intermediate Rash Verified 01/04/24 15:42 chocolate flavor AdvReac Severe DIARRHEA/ Verified 01/04/24 15:42 Cannot take, interacts w/ medications. cranberry AdvReac Severe Cannot Verified 01/04/24 15:42 take, interacts w/ medications. pembrolizumab [From [employer]] AdvReac Intermediate myocarditis Verified 01/04/24 15:42 Home Medications Medication Instructions Recorded Confirmed Type Senna-C 1 tab PO DAILY PRN Constipation 05/31/24 05/31/24 History albuterol sulfate 90 mcg/actuation 2 puff inhalation Q4H PRN 05/31/24 05/31/24 History aerosol inhaler Shortness Of Breath Or Wheezing ascorbic acid (vitamin C) 1,000 mg 1,000 mg PO DAILY 05/31/24 05/31/24 History tablet aspirin 81 mg tablet,delayed 81 mg PO DAILY 05/31/24 05/31/24 History release cholecalciferol (vitamin D3) 125 125 mcg PO DAILY 05/31/24 05/31/24 History mcg (5,000 unit) tablet (Vitamin D3) cyanocobalamin (vitamin B-12) 1,000 mcg PO DAILY 05/31/24 05/31/24 History 1,000 mcg tablet epinephrine 0.3 mg/0.3 mL 0.3 mg IM UD PRN Anaphylaxis 05/31/24 05/31/24 History injection, auto-injector ferrous sulfate 325 mg (65 mg 325 mg PO DAILY 05/31/24 05/31/24 History iron) tablet,delayed release fludrocortisone 0.1 mg tablet 0.1 mg PO DAILY 05/31/24 05/31/24 History fluticasone fur. 200 mcg-umeclid 1 inh inhalation DAILY 05/31/24 05/31/24 History 62.5 mcg-vilant 25 mcg inhalat.powder (Trelegy Ellipta) hydrocortisone 10 mg tablet 10 mg PO BID 05/31/24 05/31/24 History (Cortef) magnesium chloride 64 mg 64 mg PO BID 05/31/24 05/31/24 History (magnesium chloride) tablet,delayed release memantine 5 mg tablet 5 mg PO DAILY 05/31/24 05/31/24 History midodrine 5 mg tablet 5 mg PO UD 05/31/24 05/31/24 History multivitamin with minerals-folic 1 tab PO DAILY 05/31/24 05/31/24 History acid 200 mcg chewable tablet (Multivitamin Gummies) omeprazole 20 mg capsule,delayed 20 mg PO DAILY 05/31/24 05/31/24 History release prednisone 10 mg tablet 10 mg PO DAILY 05/31/24 05/31/24 History sertraline 25 mg tablet 25 mg PO DAILY 05/31/24 05/31/24 History solifenacin 5 mg tablet 5 mg PO DAILY 05/31/24 05/31/24 History sulfamethoxazole 800 1 tab PO UD 05/31/24 05/31/24 History mg-trimethoprim 160 mg tablet Patient History Medical History History of recent blood transfusion Radiation cystitis Kidney stones x1 episode. no surgery needed. 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 Benign prostatic hyperplasia Contrast media allergy Hiatal hernia Surgical History S/P cataract extraction History of right cataract extraction History of colonoscopy H/O sinus surgery History of appendectomy S/P TURP (status post transurethral resection of prostate) Status post cystoscopy (11/07/13) Family History Father Prostate cancer Brother Prostate cancer Mother Thyroid cancer Cancer Other No family history of adverse response to anesthesia Social History Smoking Status: Never smoker Tobacco Type: Cigarettes Second Hand Exposure: No; Do You Dip or Chew Tobacco: No; Hx Alcohol Use: No Hx Substance Use: No Preferred Language: Singaporean Communication Ability: Impaired Visual Impairment: Limited Hearing Ability: Normal Senior Interaction Designer Required: No Beliefs That Will Affect Care: None marital status: Current Living Situation: Spouse Current Living Situation Comment: at home with current occupational status: retired How many Children do You have: 0 Feels Safe at Home: Yes Diet: regular during the past year weight has: decreased > 10 lbs Seatbelt Use: always Do you think of yourself as: straight/heterosexual Gender Identity: Male Assistive Devices: Bedside Commode, Hospital Bed and Walker Review of Systems as HPI Physical Exam Gen: no acute distress Lungs: breathing comfortably on room air Neuro: alert and oriented x3, conversant and following commands Results & Data Vital Signs (Past 12 Hours) Vital Signs Temp Pulse Pulse Resp BP BP Pulse Ox 06/02/24 13:01 88 171/79 H 06/02/24 12:21 170/84 H 06/02/24 08:43 81 151/74 H 06/02/24 07:31 36.7 C 50 L 16 142/73 H 95 06/02/24 07:30 36.9 C 69 18 182/76 H 98 O2 Del Method 06/02/24 13:01 06/02/24 12:21 06/02/24 08:43 06/02/24 07:31 Room Air 06/02/24 07:30 Room Air Laboratory Results WBC 17.65K ->-> 8.13K H 12.4 Plt 161K Cr 1.03 (CrCl 81.2) T bili 1.2, AST 18, alt 13, alk phos 73 PCT 0.7 UA (05/31): LE +2, WBC>50 U cx (05/31): more than three types of organisms Blood cx (05/31): E faecalis (4 of 4: S to amp, dapto, pcn, vanco) CT A/P (06/01): 1. Right nephrolithiasis. No ureteral calculi or hydronephrosis. 2. No bowel obstruction or bowel wall thickening. 3. No acute lumbar spine fracture is identified. 4. Trace pleural and pericardial effusions. Medications Administered ABX Zosyn -> ampicillin Vancomycin iv -> bactrim
--- NOTE | 2024-06-02 14:29 | Hospitalist Progress Note ---
Date of Service June 02, 2024 Assessment & Plan (1) Severe sepsis with acute organ dysfunction: (2) Bacteremia due to Enterococcus: (3) Complicated UTI (urinary tract infection): (4) Primary bladder malignant neoplasm: (5) Acute metabolic encephalopathy: (6) COPD (chronic obstructive pulmonary disease): (7) [place]'s disease: (8) Chronic indwelling Devlin catheter: (9) Immunosuppression due to chronic steroid use: (10) Dementia: Plan Patient with severe sepsis due to complicated urinary tract infection setting of known bladder cancer and chronic indwelling Devlin with subsequent Enterococcus bacteremia Communication with infectious disease, recommendations noted: Continue ampicillin Discontinue Bactrim Echocardiogram to rule out endocarditis Surveillance blood cultures ordered Anticipate 2 weeks of IV ampicillin from date of sterile blood culture Replace potassium Suspect patient has some bruising and myalgias and arthralgias from his fall that occurred prior to admission. No evidence of fractures on imaging encouraged therapies Blood pressure is significantly improved, transition to his baseline hydrocortisone dosing, no indication for ongoing stress dose steroids. Phone conversation with the patient's while at the bedside with the patient updated her to the plan of care today Admission and Anticipated Discharge Date Admission Date: May 31, 2024 Subjective No acute events overnight. Patient feeling a bit stronger Physical Exam Physical Exam: Constitutional: Alert HEENT: Mucous membranes moist. Lungs: Clear to auscultation, decreased, no wheezes rales or rhonchi CV: S1-S2, regular Abdomen: Soft, nontender, nondistended Extremities: No significant edema Musculoskeletal: Some paravertebral lumbar muscle tenderness and SI joint pain Neuro: No focal deficits, generalized weakness Psych: Cooperative, normal mood Results & Data Results & Data Vital Signs (Past 12 Hours) Vital Signs Temp Pulse Pulse Resp BP BP Pulse Ox 06/02/24 13:01 88 171/79 H 06/02/24 12:21 170/84 H 06/02/24 08:43 81 151/74 H 06/02/24 07:31 36.7 C 50 L 16 142/73 H 95 06/02/24 07:30 36.9 C 69 18 182/76 H 98 O2 Del Method 06/02/24 13:01 06/02/24 12:21 06/02/24 08:43 06/02/24 07:31 Room Air 06/02/24 07:30 Room Air Diagnostic Findings Reviewed imaging, laboratory and diagnostic studies. Pertinent findings as below. Potassium 3.3 WBCs 8.1 Hemoglobin 12.4 Blood cultures reviewed (6) COPD (chronic obstructive pulmonary disease) COPD type: unspecified COPD Qualified Code(s): J44.9 - Chronic obstructive pulmonary disease, unspecified (10) Dementia Dementia type: unspecified type Dementia severity: unspecified severity Dementia behavioral or psychological symptom: without behavioral, psychotic, or mood disturbance or anxiety Qualified Code(s): F03.90 - Unspecified dementia, unspecified severity, without behavioral disturbance, psychotic disturbance, mood disturbance, and anxiety
[2024-06-02] MEDS: POTASSIUM CHLORIDE CRTAB 20 MEQ TABCR PO STA (15:32)
[2024-06-02] MEDS: HYDROCORTISONE 10 MG TAB PO SCH (18:01)
[2024-06-03] MEDS: cloNIDine HCL 0.1 MG TAB PO ONE (00:26)
[2024-06-03 07:29] LABS: BUN Creatinine Ratio 15.7 (10-20); Calcium 8.4 mg/dl (8.6-10.3); Creatinine Clr Calc Pharmacy 65.9 ml/min; Potassium 3.4 mmol/L (3.5-5.1)
[2024-06-03] MEDS: MIDODRINE HCL 2.5 MG TAB PO SCH (08:03)
[2024-06-03] MEDS: HYDROCORTISONE 10 MG TAB PO SCH (08:26)
--- NOTE | 2024-06-03 08:28 | Communication Note ---
Date of Service: June 02, 2024 Made aware by RN of uncontrolled blood pressure. SBP 1 50-1 90s the last 24 hours. Patient asymptomatic as per RN. AP Hypertensive urgency History hypotension on midodrine and fludrocortisone Hold fludrocortisone for now Decrease midodrine dosing from 5 mg 3 times daily to 2.5 mg 3 times daily with hold parameters for SBP greater than 140 Will relay to AM provider.
--- NOTE | 2024-06-03 08:31 | Emergency Department Note ---
Impression & Plan Sepsis, Acute UTI, Indwelling Devlin catheter present ED Provider Note CHIEF COMPLAINT: Weakness, fall, tripped on his Devlin bag HISTORY OF PRESENT ILLNESS: This 78-year-old male patient past medical history of chronic indwelling Devlin catheter due to urethral stricture, DVT/PE on chronic anticoagulation, ascending aortic dilatation, aortic stenosis, COPD, venous insufficiency, chronic kidney disease, prostate cancer, cognitive impairment, obstructive sleep apnea, non-STEMI, orthostatic hypotension, myocarditis, metabolic encephalopathy, presents to the emergency department with complaints of a fall after tripping over his Devlin catheter. Patient stated he was a bit unsteady on his feet today. He is noted at triage to be febrile and tachycardic. Patient denies hitting his head, but admits he is not quite sure. REVIEW OF SYSTEMS: A review of systems was performed with positives and pertinent negatives listed in the history of present illness. 10 systems were reviewed and are otherwise negative. ALLERGIES: see below MEDICATIONS: see below PMH: see below SOCIAL HISTORY: see below DDx: Viral syndrome such as influenza, COVID, UTI, pneumonia, medication effect, intracranial hemorrhage, trauma among others. PHYSICAL EXAM: Vital signs reviewed. General: Chronically ill-appearing 78-year-old male, frail. Noted to be febrile and tachycardic. HEENT: No scleral icterus/conjunctival injection, PERRLA, neck supple. Atraumatic. Dry mucous membranes. Cardiovascular: Regular rate and rhythm, no extra sounds. Pulmonary: Clear to auscultation bilaterally, normal work of breathing. Abdomen: Soft, nontender, nondistended, positive bowel sounds. Musculoskeletal: Atraumatic, no peripheral edema. Nontender to palpation over the cervical spine. Neurologic: Patient awake alert and oriented x 3, speech is clear Skin: Warm, dry, no rash EMERGENCY DEPARTMENT COURSE/MDM: This patient was evaluated and appeared to be in no significant distress. IV access was obtained and laboratory work was drawn. The patient was placed on the conveyor monitor and noted to be in a sinus tachycardia. Blood pressures remained elevated. IV hydration was initiated at 30 mL /kg. Patient's lactate is 3.9 with WBC of 17. Blood cultures were obtained, patient was medicated with IV ceftriaxone and given 1 g of IV acetaminophen for fever. Patient's Devlin catheter was changed. Due to meeting sepsis criteria, patient was discussed with the hospitalist service who will evaluate the patient for admission and further management. Patient is aware of the plan and agrees. Medical records were reviewed indicating previous UTI, urology consultations and sacral wounds were reviewed. MONITORING: An order for cardiac monitoring was placed and the patient is noted to be in a sinus tachycardia at 120 beats per minute. RADIOLOGY: Head CT to my interpretation reveals no evidence of acute intracranial process. Chest x-ray to my interpretation reveals no acute rib fracture, pneumothorax or evidence of pneumonia. Defer to radiology's over read below. EKG: To my interpretation reveals a sinus tachycardia at 121 bpm, biatrial enlargement, nonspecific ST abnormality. QTc of 434. DISPOSITION: Admission Past Med/Surg History Problem List (Updated 06/07/24 @ 08:49 by Marilynn Haider MD) Indwelling Devlin catheter present (Acute) Acute UTI (Acute) Sepsis (Acute) Complicated UTI (urinary tract infection) Acute metabolic encephalopathy Chronic indwelling Devlin catheter Bacteremia due to Enterococcus Severe sepsis with acute organ dysfunction Severe sepsis Syncope (Acute) Ptosis (Acute) Weakness (Acute) Dental root caries Fracture of multiple teeth Sacral pressure sore History of hematuria Chronic anemia GERD (gastroesophageal reflux disease) Tremor observed on examination Mild cognitive impairment COPD (chronic obstructive pulmonary disease) Asthma Elevated white blood cell count Acute oral pain History of myocarditis History of prostate cancer History of bladder cancer Immunosuppression due to chronic steroid use History of orthostatic hypotension Urinary incontinence Episode of unresponsiveness Hx of prostatic malignancy ~ 2014- s/p Lupron and XRT Elevated lactic acid level (Acute) Non-ST elevation [place] (NSTEMI) (Acute) Acute UTI (urinary tract infection) (Acute) Ambulatory dysfunction (Acute) Generalized weakness (Acute) Myocarditis Dementia Elevated liver function tests Weakness Elevated troponin (Acute) Acute blood loss anemia Primary bladder malignant neoplasm Hematuria (Acute) Urinary frequency Acute middle ear effusion (Acute) Fall (Acute) Cerumen impaction Orthostatic hypotension Orthostatic lightheadedness History of acute renal failure SOB (shortness of breath) (Acute) Coagulopathy (Acute) Acute urinary retention (Acute) Anemia (Acute) Hematuria (Acute) Dyspnea Preprocedural cardiovascular examination performed Urethral stricture Hematuria Encounter for pre-operative examination Incontinence Hx of blood clots Heart attack History of back problems Tongue discoloration 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) Prostate cancer DVT prophylaxis Asthma AMS (altered mental status) Cellulitis (Acute) Dietary counseling and surveillance Obesity (Chronic) Obstructive sleep apnea (Acute) Adrenal insufficiency (Acute 06/04/14) Bladder cancer (Acute) S/P IVC filter Weakness (Acute) Mild cognitive impairment, so stated Anemia (Acute) (06/25/23)to start receiving iron infusions Prostate cancer (12/22/13) "Positive family history of prostate cancer Rising PSA to 6.54 Status post ultrasound-guided biopsies 12/22/2013 revealing adenocarcinoma Jose 3+4 Status post TURP 04/23/2014 benign tissue Status post repeat biopsy 07/19/2015 3+3, and 3+4 4+3 Status post repeat biopsy 03/06/2016 3+4, 4+3 and 4+4 Initiation of hormonal suppression 07/21/2016 with Lupron 30 mg. Plan for 18 months of hormonal suppression Status post completion of radiation therapy 10/09/2016 received 8040 cGy" On 05/20/16 11:31 Hilda Montemayor wrote "Positive family history of prostate cancer Rising PSA to 6.54 Status post ultrasound-guided biopsies 12/22/2013 revealing adenocarcinoma [place] 3+4 Status post TURP 04/23/2014 benign tissue Status post repeat biopsy 07/19/2015 3+3, and 3+4 4+3 Status post repeat biopsy 03/06/2016 3+4, 4+3 and 4+4" DVT (deep venous thrombosis) Stage 3 chronic kidney disease (Acute) History of pulmonary embolism hx "many years ago" unknown etiology History of DVT (deep vein thrombosis) hx "many years ago" unknown etiology acute on chronic DVT during 12/2022 [facility] admission- Coumadin d/c'ed due to anemia and hematuria; IVC filter placed 12/28/22 Venous insufficiency (chronic) (peripheral) (Acute) COPD (chronic obstructive pulmonary disease) (Chronic) well controlled. 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 no surgery needed. 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 Benign prostatic hyperplasia Contrast media allergy Hiatal hernia Surgical History S/P cataract extraction History of right cataract extraction History of colonoscopy H/O sinus surgery History of appendectomy S/P TURP (status post transurethral resection of prostate) Status post cystoscopy (11/07/13) Family History Father Prostate cancer Brother Prostate cancer Mother Thyroid cancer Cancer Other No family history of adverse response to anesthesia Social History Smoking Status: Never smoker Tobacco Type: Cigarettes Second Hand Exposure: No; Do You Dip or Chew Tobacco: No; Hx Alcohol Use: No Hx Substance Use: No Preferred Language: Norwegian Communication Ability: Impaired Visual Impairment: Limited Hearing Ability: Normal 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 Beliefs That Will Affect Care: None marital status: Current Living Situation: Spouse Current Living Situation Comment: at home with current occupational status: retired How many Children do You have: 0 Feels Safe at Home: Yes Diet: regular during the past year weight has: decreased > 10 lbs Seatbelt Use: always Do you think of yourself as: straight/heterosexual Gender Identity: Male Assistive Devices: Bedside Commode, Hospital Bed and Walker Allergies Allergies Allergy/AdvReac Type Severity Reaction Status Date / Time Iodinated Contrast Media Allergy Severe LOVERSOL---CARDIAC Verified 01/04/24 15:[address] CONTRAST clindamycin Allergy Intermediate Rash Verified 01/04/24 15:42 chocolate flavor AdvReac Severe DIARRHEA/ Verified 01/04/24 15:42 Cannot take, interacts w/ medications. cranberry AdvReac Severe Cannot Verified 01/04/24 15:42 take, interacts w/ medications. pembrolizumab [From VoAPPs] AdvReac Intermediate myocarditis Verified 01/04/24 15:42 Home Meds Home Medications Medication Instructions Recorded Confirmed Senna-C 1 tab PO DAILY PRN Constipation 05/31/24 05/31/24 albuterol sulfate 90 mcg/actuation 2 puff inhalation Q4H PRN 05/31/24 05/31/24 aerosol inhaler Shortness Of Breath Or Wheezing ascorbic acid (vitamin C) 1,000 mg 1,000 mg PO DAILY 05/31/24 05/31/24 tablet aspirin 81 mg tablet,delayed 81 mg PO DAILY 05/31/24 05/31/24 release cholecalciferol (vitamin D3) 125 125 mcg PO DAILY 05/31/24 05/31/24 mcg (5,000 unit) tablet (Vitamin D3) cyanocobalamin (vitamin B-12) 1,000 mcg PO DAILY 05/31/24 05/31/24 1,000 mcg tablet epinephrine 0.3 mg/0.3 mL 0.3 mg IM UD PRN Anaphylaxis 05/31/24 05/31/24 injection, auto-injector ferrous sulfate 325 mg (65 mg 325 mg PO DAILY 05/31/24 05/31/24 iron) tablet,delayed release fludrocortisone 0.1 mg tablet 0.1 mg PO DAILY 05/31/24 05/31/24 fluticasone fur. 200 mcg-umeclid 1 inh inhalation DAILY 05/31/24 05/31/24 62.5 mcg-vilant 25 mcg inhalat.powder (Trelegy Ellipta) hydrocortisone 10 mg tablet 10 mg PO BID 05/31/24 05/31/24 (Cortef) magnesium chloride 64 mg 64 mg PO BID 05/31/24 05/31/24 (magnesium chloride) tablet,delayed release memantine 5 mg tablet 5 mg PO DAILY 05/31/24 05/31/24 midodrine 5 mg tablet 5 mg PO UD 05/31/24 05/31/24 multivitamin with minerals-folic 1 tab PO DAILY 05/31/24 05/31/24 acid 200 mcg chewable tablet (Multivitamin Gummies) omeprazole 20 mg capsule,delayed 20 mg PO DAILY 05/31/24 05/31/24 release prednisone 10 mg tablet 10 mg PO DAILY 05/31/24 05/31/24 sertraline 25 mg tablet 25 mg PO DAILY 05/31/24 05/31/24 solifenacin 5 mg tablet 5 mg PO DAILY 05/31/24 05/31/24 sulfamethoxazole 800 1 tab PO UD 05/31/24 05/31/24 mg-trimethoprim 160 mg tablet Results & Data (ED) Home Medications Current Medication List: was personally reviewed by me Laboratory Data Attestation: I reviewed the patient's lab results. 06/04/24 05:32 06/04/24 05:32 Lab Results 05/31/24 05/31/24 05/31/24 Range/Units 04:15 04:29 06:07 WBC 17.65 H (4.8-10.8) K/ul RBC 5.22 (4.70-6.10) M/uL Hgb 15.6 (14.0-18.0) g/dl Hct 46.3 (42.0-52.0) % MCV 88.7 (80.0-100.0) fL MCH 29.9 (25.0-34.0) pg MCHC 33.7 (32.0-36.0) g/dL RDW Std Deviation 45.7 (36.4-46.3) fL RDW Coeff of Robert 14.0 (11.5-14.5) % Plt Count 222 (130-400) K/uL MPV 9.2 L (9.4-12.4) fL Immature Gran % (Auto) 0.5 % Neut % (Auto) 83.7 % Lymph % (Auto) 9.5 % Catron % (Auto) 6.2 % Eos % (Auto) 0.0 % Baso % (Auto) 0.1 % Neut # (Auto) 14.77 H (1.40-6.50) K/uL Lymph # (Auto) 1.68 (1.20-3.40) K/uL Catron # (Auto) 1.10 H (0.11-0.59) K/uL Eos # (Auto) 0.00 (0.00-0.50) K/uL Baso # (Auto) 0.02 (0.00-0.20) K/uL Immature Gran # (Auto) 0.08 (0.01-0.20) K/uL PT 11.3 (9.0-12.0) Seconds INR 1.0 (0.9-1.1) APTT 27 (21-31) Seconds PTT Ratio 1.0 Sodium 139 (136-145) mmol/L Potassium 3.6 (3.5-5.1) mmol/L Chloride 98 (98-107) mmol/L Carbon Dioxide 27 (21-32) mmol/L Anion Gap 14 H (3-11) BUN 23 (6-23) mg/dl Creatinine 1.43 H (0.6-1.4) mg/dl Est Cr Clr Drug Dosing Not Reportable eGFR 50.47 BUN/Creatinine Ratio 16.1 (10-20) Glucose 103 H (70-99(Fasting)) mg/dl Lactate 3.9 H* 1.9 (0.4-2.0) mmol/L Calcium 9.0 (8.6-10.3) mg/dl Total Bilirubin 1.2 H (0.2-1.0) mg/dl AST 18 (13-39) U/L ALT 13 (7-52) U/L Alkaline Phosphatase 73 (34-104) U/L Total Protein 7.1 (6.0-8.3) gm/dl Albumin 4.1 (3.4-5.0) gm/dl Globulin 3.0 (2.5-4.0) gm/dl Albumin/Globulin Ratio 1.4 (0.9-2) Procalcitonin 0.70 H (0-0.5) ng/ml SARS-CoV-2 (PCR) NEGATIVE (Negative) Enterococc faecalis PCR DETECTED A (NotDetected) Influenza Type A (PCR) Negative (Neg) Influenza Type B (PCR) Negative (Neg) RSV (RT-PCR) Negative (Neg) Darian/B-Vanco Res Genes VRE Not Detected (NotDetected) Bld Cult ID Panel PCR See PCR Comment (NotDetected) Administered Medications Acetaminophen (Acetaminophen 325 Mg Tab) 650 mg PO Q4H PRN PRN Reason: Pain or Fever Stop: 06/30/24 09:14 Last Admin: 06/06/24 21:14 Dose: 650 mg Documented By: Admin: 06/05/24 04:33 Dose: 650 mg Documented By: Admin: 06/04/24 05:35 Dose: 650 mg Documented By: Admin: 06/03/24 15:15 Dose: 650 mg Documented By: Admin: 06/03/24 08:42 Dose: 650 mg Documented By: Admin: 06/03/24 02:56 Dose: 650 mg Documented By: Admin: 06/02/24 10:40 Dose: 650 mg Documented By: Admin: 06/01/24 20:33 Dose: 650 mg Documented By: Admin: 06/01/24 03:51 Dose: 650 mg Documented By: Admin: 05/31/24 14:30 Dose: 650 mg Documented By: LIYA Ascorbic Acid (Ascorbic Acid 500 Mg Tab) 1,000 mg PO DAILY TAWNY Stop: 06/30/24 08:59 Last Admin: 06/07/24 08:30 Dose: 1,000 mg Documented By: Admin: 06/06/24 08:40 Dose: 1,000 mg Documented By: Admin: 06/05/24 09:17 Dose: 1,000 mg Documented By: Admin: 06/04/24 08:12 Dose: 1,000 mg Documented By: Admin: 06/03/24 08:25 Dose: 1,000 mg Documented By: Admin: 06/02/24 08:47 Dose: 1,000 mg Documented By: Admin: 06/01/24 08:00 Dose: 1,000 mg Documented By: Admin: 05/31/24 11:37 Dose: 1,000 mg Documented By: NADIRA Aspirin (Aspirin 81 Mg Ectab) 81 mg PO DAILY TAWNY Stop: 06/30/24 09:14 Last Admin: 06/07/24 08:30 Dose: 81 mg Documented By: Admin: 06/06/24 08:40 Dose: 81 mg Documented By: Admin: 06/05/24 09:16 Dose: 81 mg Documented By: Admin: 06/04/24 08:12 Dose: 81 mg Documented By: Admin: 06/03/24 08:25 Dose: 81 mg Documented By: Admin: 06/02/24 08:47 Dose: 81 mg Documented By: Admin: 06/01/24 08:01 Dose: 81 mg Documented By: Admin: 05/31/24 11:37 Dose: 81 mg Documented By: NADIRA Cyanocobalamin (Cyanocobalamin (B-12) 500 Mcg Tablet) 1,000 mcg PO DAILY TAWNY Stop: 06/30/24 08:59 Last Admin: 06/07/24 08:30 Dose: 1,000 mcg Documented By: Admin: 06/06/24 08:38 Dose: 1,000 mcg Documented By: Admin: 06/05/24 09:17 Dose: 1,000 mcg Documented By: Admin: 06/04/24 08:12 Dose: 1,000 mcg Documented By: Admin: 06/03/24 08:25 Dose: 1,000 mcg Documented By: Admin: 06/02/24 08:48 Dose: 1,000 mcg Documented By: Admin: 06/01/24 08:01 Dose: 1,000 mcg Documented By: Admin: 05/31/24 11:38 Dose: 1,000 mcg Documented By: NADIRA Ferrous Sulfate (Ferrous Sulfate 325 Mg Tab) 325 mg PO DAILY TAWNY Stop: 06/30/24 09:14 Last Admin: 06/07/24 08:31 Dose: 325 mg Documented By: Admin: 06/06/24 08:40 Dose: 325 mg Documented By: Admin: 06/05/24 09:18 Dose: 325 mg Documented By: Admin: 06/04/24 08:13 Dose: 325 mg Documented By: Admin: 06/03/24 08:26 Dose: 325 mg Documented By: Admin: 06/02/24 08:51 Dose: 325 mg Documented By: Admin: 06/01/24 08:06 Dose: 325 mg Documented By: Admin: 05/31/24 11:39 Dose: 325 mg Documented By: NADIRA Fludrocortisone Acetate (Fludrocortisone Acetate 0.1 Mg Tab) 0.1 mg PO DAILY TAWNY Stop: 06/30/24 09:14 Last Admin: 06/02/24 08:49 Dose: 0.1 mg Documented By: Admin: 06/01/24 08:02 Dose: 0.1 mg Documented By: Admin: 05/31/24 11:38 Dose: 0.1 mg Documented By: NADIRA Fluticasone Furoate (Fluticasone Furoate 200mcg 14 Puffs/Inhaler) 1 puffs INH DAILY TAWNY Stop: 06/30/24 08:59 Last Admin: 06/07/24 08:29 Dose: 1 puffs Documented By: Admin: 06/06/24 08:42 Dose: 1 puffs Documented By: Admin: 06/05/24 09:14 Dose: 1 puffs Documented By: Admin: 06/04/24 08:14 Dose: 1 puffs Documented By: Admin: 06/03/24 08:29 Dose: 1 puffs Documented By: Admin: 06/02/24 08:55 Dose: 1 puffs Documented By: Admin: 06/01/24 08:06 Dose: 1 puffs Documented By: Admin: 05/31/24 11:41 Dose: 1 puffs Documented By: NADIRA Folic Acid (Folic Acid 400 Mcg Tab) 200 mcg PO DAILY TAWNY Stop: 06/30/24 08:59 Last Admin: 06/07/24 08:29 Dose: 200 mcg Documented By: Admin: 06/06/24 08:37 Dose: 200 mcg Documented By: Admin: 06/05/24 09:15 Dose: 200 mcg Documented By: Admin: 06/04/24 08:11 Dose: 200 mcg Documented By: Admin: 06/03/24 08:27 Dose: 200 mcg Documented By: Admin: 06/02/24 08:54 Dose: 200 mcg Documented By: Admin: 06/01/24 08:05 Dose: 200 mcg Documented By: Admin: 05/31/24 11:36 Dose: 200 mcg Documented By: NADIRA Heparin Sodium (Beef Lung) (Heparin 10 Unit/Ml 5 Ml Flush) 5 ml FLUSH PRN PRN PRN Reason: Flush Stop: 07/04/24 11:47 Last Admin: 06/07/24 06:20 Dose: 5 ml Documented By: Admin: 06/07/24 01:56 Dose: 5 ml Documented By: Admin: 06/06/24 22:03 Dose: 5 ml Documented By: Admin: 06/06/24 11:35 Dose: 5 ml Documented By: JADE Co-signed By: PARESH Admin: 06/05/24 06:42 Dose: 5 ml Documented By: Admin: 06/05/24 02:45 Dose: 5 ml Documented By: Admin: 06/04/24 21:58 Dose: 5 ml Documented By: CECILIA Heparin Sodium (Porcine) (Heparin Sod 5,000 Unit/0.5 Ml Vial) 5,000 units SQ Q8 TAWNY Stop: 06/30/24 13:59 Last Admin: 06/07/24 05:35 Dose: 5,000 units Documented By: Admin: 06/06/24 21:17 Dose: 5,000 units Documented By: Admin: 06/06/24 13:30 Dose: 5,000 units Documented By: Admin: 06/06/24 05:47 Dose: 5,000 units Documented By: Admin: 06/05/24 21:36 Dose: 5,000 units Documented By: Admin: 06/05/24 14:25 Dose: 5,000 units Documented By: Admin: 06/05/24 06:12 Dose: 5,000 units Documented By: Admin: 06/04/24 21:13 Dose: 5,000 units Documented By: Admin: 06/04/24 13:46 Dose: 5,000 units Documented By: Admin: 06/04/24 05:35 Dose: 5,000 units Documented By: Admin: 06/03/24 21:22 Dose: 5,000 units Documented By: Admin: 06/03/24 13:21 Dose: 5,000 units Documented By: Admin: 06/03/24 05:27 Dose: 5,000 units Documented By: Admin: 06/02/24 21:12 Dose: 5,000 units Documented By: Admin: 06/02/24 14:02 Dose: 5,000 units Documented By: Admin: 06/02/24 05:22 Dose: 5,000 units Documented By: Admin: 06/01/24 20:30 Dose: 5,000 units Documented By: Admin: 06/01/24 14:39 Dose: 5,000 units Documented By: Admin: 06/01/24 05:31 Dose: 5,000 units Documented By: Admin: 05/31/24 21:27 Dose: 5,000 units Documented By: Admin: 05/31/24 14:33 Dose: 5,000 units Documented By: LIYA Hydrocortisone (Hydrocortisone 10 Mg Tab) 20 mg PO QAM TAWNY Stop: 07/03/24 08:59 Last Admin: 06/07/24 08:29 Dose: 20 mg Documented By: Admin: 06/06/24 08:38 Dose: 20 mg Documented By: Admin: 06/05/24 09:15 Dose: 20 mg Documented By: Admin: 06/04/24 08:12 Dose: 20 mg Documented By: Admin: 06/03/24 08:26 Dose: 20 mg Documented By: EW Hydrocortisone (Hydrocortisone 10 Mg Tab) 10 mg PO 1700 TAWNY Stop: 07/02/24 16:59 Last Admin: 06/06/24 17:08 Dose: 10 mg Documented By: Admin: 06/05/24 17:42 Dose: 10 mg Documented By: Admin: 06/04/24 16:52 Dose: 10 mg Documented By: Admin: 06/03/24 16:21 Dose: 10 mg Documented By: Admin: 06/02/24 18:01 Dose: 10 mg Documented By: CS Ampicillin Sodium 2,000 mg/ (Sodium Chloride) 100 mls @ 200 mls/hr IV Q4H TAWNY Stop: 06/15/24 12:29 Last Infusion: 06/07/24 06:24 Dose: Infused Documented By: Admin: 06/07/24 05:45 Dose: 200 mls/hr Documented By: Infusion: 06/07/24 01:54 Dose: Infused Documented By: Admin: 06/07/24 01:21 Dose: 200 mls/hr Documented By: Infusion: 06/06/24 22:03 Dose: Infused Documented By: Admin: 06/06/24 21:25 Dose: 200 mls/hr Documented By: Infusion: 06/06/24 18:30 Dose: Infused Documented By: Admin: 06/06/24 17:50 Dose: 200 mls/hr Documented By: Infusion: 06/06/24 14:19 Dose: Infused Documented By: Admin: 06/06/24 13:30 Dose: 200 mls/hr Documented By: Infusion: 06/06/24 11:33 Dose: Infused Documented By: Admin: 06/06/24 10:48 Dose: 200 mls/hr Documented By: JADE Co-signed By: AC Infusion: 06/06/24 06:20 Dose: Infused Documented By: Admin: 06/06/24 05:40 Dose: 200 mls/hr Documented By: Infusion: 06/06/24 03:28 Dose: Infused Documented By: Admin: 06/06/24 02:05 Dose: 200 mls/hr Documented By: Infusion: 06/05/24 22:22 Dose: Infused Documented By: Admin: 06/05/24 21:39 Dose: 200 mls/hr Documented By: Infusion: 06/05/24 18:40 Dose: Infused Documented By: Admin: 06/05/24 17:54 Dose: 200 mls/hr Documented By: Infusion: 06/05/24 15:15 Dose: Infused Documented By: Admin: 06/05/24 14:26 Dose: 200 mls/hr Documented By: Infusion: 06/05/24 10:05 Dose: Infused Documented By: Admin: 06/05/24 09:24 Dose: 200 mls/hr Documented By: Infusion: 06/05/24 06:43 Dose: Infused Documented By: Admin: 06/05/24 06:08 Dose: 200 mls/hr Documented By: Infusion: 06/05/24 02:55 Dose: Infused Documented By: Admin: 06/05/24 02:04 Dose: 200 mls/hr Documented By: Infusion: 06/04/24 21:58 Dose: Infused Documented By: Admin: 06/04/24 21:13 Dose: 200 mls/hr Documented By: Infusion: 06/04/24 18:59 Dose: Infused Documented By: Admin: 06/04/24 18:09 Dose: 200 mls/hr Documented By: Infusion: 06/04/24 14:35 Dose: Infused Documented By: Admin: 06/04/24 13:49 Dose: 200 mls/hr Documented By: Infusion: 06/04/24 11:05 Dose: Infused Documented By: Admin: 06/04/24 10:28 Dose: 200 mls/hr Documented By: Infusion: 06/04/24 07:27 Dose: Infused Documented By: Admin: 06/04/24 06:40 Dose: 200 mls/hr Documented By: Infusion: 06/04/24 01:22 Dose: Infused Documented By: Admin: 06/04/24 00:43 Dose: 200 mls/hr Documented By: Infusion: 06/03/24 21:57 Dose: Infused Documented By: Admin: 06/03/24 21:22 Dose: 200 mls/hr Documented By: Infusion: 06/03/24 17:02 Dose: Infused Documented By: Admin: 06/03/24 16:20 Dose: 200 mls/hr Documented By: Infusion: 06/03/24 12:48 Dose: Infused Documented By: Admin: 06/03/24 12:11 Dose: 200 mls/hr Documented By: Infusion: 06/03/24 09:27 Dose: Infused Documented By: Admin: 06/03/24 08:31 Dose: 200 mls/hr Documented By: Infusion: 06/03/24 06:06 Dose: Infused Documented By: Admin: 06/03/24 05:27 Dose: 200 mls/hr Documented By: Infusion: 06/03/24 00:29 Dose: Infused Documented By: Admin: 06/02/24 23:48 Dose: 200 mls/hr Documented By: Infusion: 06/02/24 21:54 Dose: Infused Documented By: Admin: 06/02/24 21:20 Dose: 200 mls/hr Documented By: Infusion: 06/02/24 17:56 Dose: Infused Documented By: Admin: 06/02/24 17:20 Dose: 200 mls/hr Documented By: Infusion: 06/02/24 13:38 Dose: Infused Documented By: Admin: 06/02/24 13:05 Dose: 200 mls/hr Documented By: Infusion: 06/02/24 09:48 Dose: Infused Documented By: Admin: 06/02/24 09:06 Dose: 200 mls/hr Documented By: Infusion: 06/02/24 06:26 Dose: Infused Documented By: Admin: 06/02/24 05:50 Dose: 200 mls/hr Documented By: Infusion: 06/02/24 00:40 Dose: Infused Documented By: Admin: 06/01/24 23:41 Dose: 200 mls/hr Documented By: Infusion: 06/01/24 21:15 Dose: Infused Documented By: Admin: 06/01/24 20:21 Dose: 200 mls/hr Documented By: Infusion: 06/01/24 16:59 Dose: Infused Documented By: Admin: 06/01/24 16:26 Dose: 200 mls/hr Documented By: Infusion: 06/01/24 15:28 Dose: Infused Documented By: Admin: 06/01/24 14:36 Dose: 200 mls/hr Documented By: LIYA Lidocaine (Lidocaine 5% 1 Patch) 2 patch TD DAILY TAWNY Stop: 06/30/24 15:07 Last Admin: 06/07/24 08:31 Dose: 2 patch Documented By: Admin: 06/06/24 08:41 Dose: 2 patch Documented By: Admin: 06/05/24 09:19 Dose: 2 patch Documented By: Admin: 06/04/24 08:15 Dose: 2 patch Documented By: Admin: 06/03/24 08:30 Dose: 2 patch Documented By: Admin: 06/02/24 09:03 Dose: 2 patch Documented By: Admin: 06/01/24 08:08 Dose: 2 patch Documented By: Admin: 05/31/24 16:20 Dose: 2 patch Documented By: LIYA Magnesium Chloride (Magnesium Chloride W/Calcium 64mg Delayed Rel Tab) 64 mg PO BID TAWNY Stop: 06/30/24 09:14 Last Admin: 06/07/24 08:32 Dose: 64 mg Documented By: Admin: 06/06/24 21:15 Dose: 64 mg Documented By: Admin: 06/06/24 08:41 Dose: 64 mg Documented By: Admin: 06/05/24 21:36 Dose: 64 mg Documented By: Admin: 06/05/24 09:15 Dose: 64 mg Documented By: Admin: 06/04/24 21:12 Dose: 64 mg Documented By: Admin: 06/04/24 08:11 Dose: 64 mg Documented By: Admin: 06/03/24 21:22 Dose: 64 mg Documented By: Admin: 06/03/24 08:26 Dose: 64 mg Documented By: Admin: 06/02/24 21:13 Dose: 64 mg Documented By: Admin: 06/02/24 08:48 Dose: 64 mg Documented By: Admin: 06/01/24 20:30 Dose: 64 mg Documented By: Admin: 06/01/24 08:07 Dose: 64 mg Documented By: Admin: 05/31/24 20:01 Dose: 64 mg Documented By: Admin: 05/31/24 11:39 Dose: 64 mg Documented By: NADIRA Memantine (Memantine Hcl 10 Mg Tab) 10 mg PO BID TAWNY Stop: 07/01/24 20:59 Last Admin: 06/07/24 08:30 Dose: 10 mg Documented By: Admin: 06/06/24 21:16 Dose: 10 mg Documented By: Admin: 06/06/24 08:40 Dose: 10 mg Documented By: Admin: 06/05/24 21:36 Dose: 10 mg Documented By: Admin: 06/05/24 09:18 Dose: 10 mg Documented By: Admin: 06/04/24 21:12 Dose: 10 mg Documented By: Admin: 06/04/24 08:14 Dose: 10 mg Documented By: Admin: 06/03/24 21:22 Dose: 10 mg Documented By: Admin: 06/03/24 09:01 Dose: 10 mg Documented By: Admin: 06/02/24 21:13 Dose: 10 mg Documented By: Admin: 06/02/24 10:41 Dose: 10 mg Documented By: Admin: 06/01/24 20:29 Dose: 10 mg Documented By: MIKE Miscellaneous (Remove Lidoderm Patch) 1 each N/A DAILY@2100 TAWNY Stop: 06/30/24 20:59 Last Admin: 06/06/24 21:17 Dose: 1 each Documented By: Admin: 06/05/24 21:36 Dose: 1 each Documented By: Admin: 06/04/24 21:12 Dose: 1 each Documented By: Admin: 06/03/24 21:22 Dose: 1 each Documented By: Admin: 06/02/24 21:13 Dose: 1 each Documented By: Admin: 06/01/24 20:34 Dose: 1 each Documented By: Admin: 05/31/24 21:27 Dose: 1 each Documented By: AMBER Multivitamins (Multivitamin Tab) 1 tab PO DAILY TAWNY Stop: 06/30/24 08:59 Last Admin: 06/07/24 08:30 Dose: 1 tab Documented By: Admin: 06/06/24 08:39 Dose: 1 tab Documented By: Admin: 06/05/24 09:16 Dose: 1 tab Documented By: Admin: 06/04/24 08:14 Dose: 1 tab Documented By: Admin: 06/03/24 08:25 Dose: 1 tab Documented By: Admin: 06/02/24 08:50 Dose: 1 tab Documented By: Admin: 06/01/24 08:01 Dose: 1 tab Documented By: Admin: 05/31/24 11:40 Dose: 1 tab Documented By: NADIRA Nystatin (Nystatin Powder 15gm Btl) 1 appln EXT BID TAWNY Stop: 07/06/24 12:29 Last Admin: 06/07/24 08:31 Dose: 1 appln Documented By: Admin: 06/06/24 21:16 Dose: 1 appln Documented By: Admin: 06/06/24 13:31 Dose: 1 appln Documented By: KESHA Oxybutynin Chloride (Oxybutynin Chloride Xl 5 Mg Tabcr) 5 mg PO DAILY TAWNY Stop: 06/30/24 08:59 Last Admin: 06/07/24 08:29 Dose: 5 mg Documented By: Admin: 06/06/24 11:05 Dose: 5 mg Documented By: MARIAMP Co-signed By: PARESH Admin: 06/05/24 09:18 Dose: 5 mg Documented By: Admin: 06/04/24 08:13 Dose: 5 mg Documented By: Admin: 06/03/24 08:25 Dose: 5 mg Documented By: Admin: 06/02/24 08:48 Dose: 5 mg Documented By: Admin: 06/01/24 08:01 Dose: 5 mg Documented By: Admin: 05/31/24 11:40 Dose: 5 mg Documented By: NADIRA Oxycodone HCl (Oxycodone Hcl Ir 5 Mg Tab (Immediate Release)) 2.5 mg PO Q4H PRN PRN Reason: Pain Stop: 06/14/24 13:56 Last Admin: 06/05/24 19:39 Dose: 2.5 mg Documented By: Admin: 06/05/24 02:44 Dose: 2.5 mg Documented By: Admin: 06/04/24 13:46 Dose: 2.5 mg Documented By: Admin: 06/04/24 02:46 Dose: 2.5 mg Documented By: KSChristiano Admin: 06/03/24 17:01 Dose: 2.5 mg Documented By: Admin: 06/02/24 21:11 Dose: 2.5 mg Documented By: Admin: 06/02/24 05:21 Dose: 2.5 mg Documented By: Admin: 06/01/24 07:57 Dose: 2.5 mg Documented By: LIYA Pantoprazole Sodium (Pantoprazole 40 Mg Tab) 40 mg PO DAILY TAWNY; Protocol Stop: 06/30/24 08:59 Last Admin: 06/07/24 08:30 Dose: 40 mg Documented By: Admin: 06/06/24 08:39 Dose: 40 mg Documented By: Admin: 06/05/24 09:18 Dose: 40 mg Documented By: Admin: 06/04/24 08:12 Dose: 40 mg Documented By: Admin: 06/03/24 08:24 Dose: 40 mg Documented By: Admin: 06/02/24 08:51 Dose: 40 mg Documented By: Admin: 06/01/24 08:01 Dose: 40 mg Documented By: Admin: 05/31/24 11:40 Dose: 40 mg Documented By: NADIRA Umeclidinium/Vilanterol (Umeclidinium/Vilanterol 62.5/25mcg 7 Puffs/Inhaler) 1 puffs INH DAILY TAWNY Stop: 06/30/24 08:59 Last Admin: 06/07/24 08:29 Dose: 1 puffs Documented By: Admin: 06/06/24 08:42 Dose: 1 puffs Documented By: Admin: 06/05/24 09:14 Dose: 1 puffs Documented By: Admin: 06/04/24 08:14 Dose: 1 puffs Documented By: Admin: 06/03/24 08:30 Dose: 1 puffs Documented By: Admin: 06/02/24 08:55 Dose: 1 puffs Documented By: Admin: 06/01/24 08:05 Dose: 1 puffs Documented By: Admin: 05/31/24 11:40 Dose: 1 puffs Documented By: NADIRA Vitamin D (Cholecalciferol 125 Mcg (5,000 Units) Tab) 125 mcg PO DAILY TAWNY Stop: 06/30/24 09:14 Last Admin: 06/07/24 08:30 Dose: 125 mcg Documented By: Admin: 06/06/24 08:43 Dose: 125 mcg Documented By: Admin: 06/05/24 09:16 Dose: 125 mcg Documented By: Admin: 06/04/24 08:13 Dose: 125 mcg Documented By: Admin: 06/03/24 08:25 Dose: 125 mcg Documented By: Admin: 06/02/24 08:51 Dose: 125 mcg Documented By: Admin: 06/01/24 08:01 Dose: 125 mcg Documented By: Admin: 05/31/24 11:42 Dose: 125 mcg Documented By: NADIRA Discontinued Medications Clonidine HCl (Clonidine Hcl 0.1 Mg Tab) 0.1 mg PO NOW ONE Stop: 06/02/24 23:53 Last Admin: 06/03/24 00:26 Dose: 0.1 mg Documented By: KSC Furosemide (Furosemide 40 Mg Tab) 40 mg PO NOW ONE Stop: 06/06/24 12:18 Last Admin: 06/06/24 13:29 Dose: 40 mg Documented By: KESHA Hydrocortisone Sodium Succinate (Hydrocortisone Sod Succinate 100 Mg/2 Ml Vial) 100 mg IV NOW STA Stop: 05/31/24 06:08 Last Admin: 05/31/24 06:49 Dose: 100 mg Documented By: NOLAN Ceftriaxone Sodium (Rocephin) 2,000 mg in 50 mls @ 100 mls/hr IV NOW STA Stop: 05/31/24 04:52 Last Infusion: 05/31/24 05:25 Dose: Infused Documented By: Admin: 05/31/24 04:43 Dose: 100 mls/hr Documented By: BREANA Sodium Chloride (Nss) 1,000 mls @ 999 mls/hr IV .Q1H1M ONE Stop: 05/31/24 05:27 Last Infusion: 05/31/24 05:30 Dose: Infused Documented By: Admin: 05/31/24 05:14 Dose: 999 mls/hr Documented By: Infusion: 05/31/24 05:14 Dose: Infused Documented By: Admin: 05/31/24 04:41 Dose: 999 mls/hr Documented By: EMB Acetaminophen (Ofirmev) 1,000 mg in 100 mls @ 400 mls/hr IV NOW STA Stop: 05/31/24 04:42 Last Infusion: 05/31/24 04:57 Dose: Infused Documented By: Admin: 05/31/24 04:36 Dose: 400 mls/hr Documented By: EMB Sodium Chloride (Nss) 1,000 mls @ 999 mls/hr IV .Q1H1M TAWNY Stop: 05/31/24 06:06 Last Infusion: 05/31/24 11:54 Dose: Infused Documented By: Admin: 05/31/24 08:00 Dose: 999 mls/hr Documented By: Infusion: 05/31/24 05:30 Dose: Infused Documented By: Admin: 05/31/24 05:00 Dose: 999 mls/hr Documented By: BREANA Sodium Chloride (Nss) 1,000 mls @ 125 mls/hr IV .Q8H TAWNY Stop: 06/30/24 06:14 Last Infusion: 06/01/24 12:08 Dose: Infused Documented By: Admin: 06/01/24 06:34 Dose: 125 mls/hr Documented By: Infusion: 06/01/24 06:34 Dose: Infused Documented By: Admin: 05/31/24 22:38 Dose: 125 mls/hr Documented By: Admin: 05/31/24 15:34 Dose: Not Given Documented By: Infusion: 05/31/24 15:34 Dose: Infused Documented By: Admin: 05/31/24 06:37 Dose: 125 mls/hr Documented By: NOLAN Piperacillin Sod/Tazobactam Sod (Zosyn) 4.5 gm in 100 mls @ 25 mls/hr IV Q8H TAWNY; Protocol Stop: 06/10/24 11:59 Last Infusion: 06/01/24 08:12 Dose: Infused Documented By: Admin: 06/01/24 03:38 Dose: 25 mls/hr Documented By: Infusion: 05/31/24 23:57 Dose: Infused Documented By: Admin: 05/31/24 19:57 Dose: 25 mls/hr Documented By: Infusion: 05/31/24 16:05 Dose: Infused Documented By: Admin: 05/31/24 11:42 Dose: 25 mls/hr Documented By: NADIRA Vancomycin HCl 2,000 mg/ (Sodium Chloride) 540 mls @ 200 mls/hr IV ONE STA; Protocol Stop: 05/31/24 08:58 Last Infusion: 05/31/24 11:54 Dose: Infused Documented By: Admin: 05/31/24 06:37 Dose: 200 mls/hr Documented By: NOLAN Piperacillin Sod/Tazobactam Sod (Zosyn) 4.5 gm in 100 mls @ 200 mls/hr IV ONE STA; Protocol Stop: 05/31/24 06:42 Last Infusion: 05/31/24 07:42 Dose: Infused Documented By: Admin: 05/31/24 06:49 Dose: 200 mls/hr Documented By: NOLAN Hydrocortisone Sodium (Succinate 100 mg/ Syringe) 2 mls @ 4 mls/min IV TID TAWNY Stop: 06/30/24 14:59 Last Admin: 06/01/24 08:07 Dose: 4 mls/min Documented By: Admin: 05/31/24 20:01 Dose: 4 mls/min Documented By: Admin: 05/31/24 14:31 Dose: 4 mls/min Documented By: LIYA Hydrocortisone Sodium (Succinate 50 mg/ Syringe) 1 mls @ 4 mls/min IV TID TAWNY Stop: 07/01/24 13:59 Last Admin: 06/02/24 13:53 Dose: 4 mls/min Documented By: Admin: 06/02/24 09:48 Dose: 4 mls/min Documented By: Admin: 06/01/24 20:26 Dose: 4 mls/min Documented By: Admin: 06/01/24 14:37 Dose: 4 mls/min Documented By: LIYA Memantine (Memantine Hcl 5 Mg Tab) 5 mg PO DAILY TAWNY Stop: 06/30/24 09:14 Last Admin: 06/01/24 08:01 Dose: 5 mg Documented By: Admin: 05/31/24 11:38 Dose: 5 mg Documented By: NADIRA Midodrine (Midodrine Hcl 2.5 Mg Tab) 5 mg PO 0400,0800,1200 TAWNY Stop: 06/30/24 11:59 Last Admin: 05/31/24 11:39 Dose: 5 mg Documented By: NADIRA Midodrine (Midodrine Hcl 2.5 Mg Tab) 5 mg PO 0800,1200,1600 TAWNY Stop: 07/01/24 07:59 Last Admin: 06/02/24 17:15 Dose: Not Given Documented By: Admin: 06/02/24 13:02 Dose: 5 mg Documented By: Admin: 06/02/24 08:50 Dose: 5 mg Documented By: Admin: 06/01/24 16:27 Dose: 5 mg Documented By: Admin: 06/01/24 12:48 Dose: 5 mg Documented By: Admin: 06/01/24 07:59 Dose: 5 mg Documented By: LIYA Midodrine (Midodrine Hcl 2.5 Mg Tab) 2.5 mg PO 0800,1200,1600 [facility] Stop: 07/03/24 07:59 Last Admin: 06/04/24 07:58 Dose: Not Given Documented By: Admin: 06/03/24 16:16 Dose: Not Given Documented By: Admin: 06/03/24 12:10 Dose: Not Given Documented By: Admin: 06/03/24 08:03 Dose: Not Given Documented By: JACKSON Miscellaneous (Patient's Height &/Or Weight Needed) 1 each N/A ONE STA Stop: 05/31/24 06:17 Last Admin: 05/31/24 07:41 Dose: 1 each Documented By: Potassium Chloride (Potassium Chloride Crtab 20 Meq Tabcr) 40 meq PO NOW STA Stop: 06/02/24 14:24 Last Admin: 06/02/24 15:32 Dose: 40 meq Documented By: DEISY Potassium Chloride (Potassium Chloride Crtab 20 Meq Tabcr) 40 meq PO NOW STA Stop: 06/03/24 12:45 Last Admin: 06/03/24 12:51 Dose: 40 meq Documented By: JACKSON Sertraline HCl (Sertraline Hcl 50 Mg Tablet) 25 mg PO DAILY [facility] Stop: 06/30/24 09:14 Last Admin: 06/03/24 08:25 Dose: 25 mg Documented By: Admin: 06/02/24 08:52 Dose: 25 mg Documented By: Admin: 06/01/24 08:00 Dose: 25 mg Documented By: Admin: 05/31/24 11:39 Dose: 25 mg Documented By: NADIRA Trimethoprim/Sulfamethoxazole (Sulfamethoxazole/Trimethoprim Ds 800/160mg Tab) 1 tab PO MoWeFr@0900 [facility] Stop: 06/12/24 08:59 Last Admin: 06/02/24 08:53 Dose: 1 tab Documented By: DEISY Discharge Plan Visit Data Chief Complaint: Fall Stated Complaint: UNWITNESS FALL, R HIP PAIN ED Provider: Marilynn Haider Discharge Problem: Sepsis, Acute UTI, Indwelling Devlin catheter present Patient Disposition: Admitted As Inpatient Discharge Instructions Interventions: ED Discharge Assessment Last Done: 05/31/24 09:15 Discharge Problem: Sepsis Qualifiers: Sepsis type: sepsis due to unspecified organism Sepsis acute organ dysfunction status: with acute organ dysfunction Severe sepsis acute organ dysfunction type: unspecified Severe sepsis shock status: without septic shock Qualified Code(s): A41.9 - Sepsis, unspecified organism; R65.20 - Severe sepsis without septic shock
--- NOTE | 2024-06-03 12:44 | Hospitalist Progress Note ---
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 Moderate to severe on echo 06/02/2024 Plan Continue current antibiotics Follow repeat blood cultures Anticipate placing PICC line/midline if surveillance culture remains clear Ampicillin for 2 weeks from sterile blood culture Continue therapies Encourage patient to get up and out of bed Pursue placement Phone update to patient's Admission and Anticipated Discharge Date Admission Date: May 31, 2024 Subjective Patient continues to complain of migratory to back/hip/flank pain Physical Exam Physical Exam: Constitutional: Alert, nontoxic in appearance HEENT: Mucous membranes moist. Lungs: Clear to auscultation, decreased, no wheezes rales or rhonchi CV: S1-S2, regular Abdomen: Soft, nontender, nondistended : Devlin catheter in place Extremities: No significant edema Musculoskeletal: Mild tenderness to palpation left pelvic arch Neuro: No focal deficits Psych: Cooperative, normal mood Results & Data Results & Data Vital Signs (Past 12 Hours) Vital Signs Temp Pulse Resp BP Pulse Ox O2 Del Method 06/03/24 12:12 163/89 H 06/03/24 08:10 36.5 C 72 16 163/80 H 96 Room Air 06/03/24 02:57 36.8 C 65 18 169/81 H 97 Room Air Diagnostic Findings Reviewed imaging, laboratory and diagnostic studies. Pertinent findings as below. Echocardiogram report reviewed, no evidence of endocarditis, significant aortic stenosis Repeat blood culture pending Potassium 3.4 (6) COPD (chronic obstructive pulmonary disease) COPD type: unspecified COPD Qualified Code(s): J44.9 - Chronic obstructive pulmonary disease, unspecified (10) Dementia Dementia type: unspecified type Dementia severity: unspecified severity Dementia behavioral or psychological symptom: without behavioral, psychotic, or mood disturbance or anxiety Qualified Code(s): F03.90 - Unspecified dementia, unspecified severity, without behavioral disturbance, psychotic disturbance, mood disturbance, and anxiety
[2024-06-03] MEDS: POTASSIUM CHLORIDE CRTAB 20 MEQ TABCR PO STA (12:51)
[2024-06-04 06:10] LABS: Hematocrit (blood only) 36.9 % (42.0-52.0); Hemoglobin 11.9 g/dl (14.0-18.0); Mean Corpuscular Hemoglobin 29.3 pg (25.0-34.0); Mean Corpuscular Hgb Conc 32.2 g/dL (32.0-36.0); Mean Corpuscular Volume 90.9 fL (80.0-100.0); Mean Platelet Volume 9.1 fL (9.4-12.4); Platelet Count 169 K/uL (130-400); RDW Coefficient of Variation 14.3 % (11.5-14.5); RDW Standard Deviation 47.4 fL (36.4-46.3); Red Blood Count 4.06 M/uL (4.70-6.10); White Blood Count 6.87 K/ul (4.8-10.8)
[2024-06-04 06:31] LABS: BUN Creatinine Ratio 14.8 (10-20); Calcium 8.4 mg/dl (8.6-10.3); Creatinine Clr Calc Pharmacy 68.6 ml/min; Potassium 3.7 mmol/L (3.5-5.1)
[2024-06-04] MEDS ORDERED: Nursing to Pharmacy Communication SCH (06:45)
--- NOTE | 2024-06-04 13:01 | Hospitalist Progress Note ---
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 Moderate to severe on echo 06/02/2024 Plan Patient with Enterococcus bacteremia due to urinary tract infection in the setting of bladder cancer and chronic indwelling Devlin. Surveillance cultures no growth Consent for PICC line obtained, anticipate PICC placement Anticipate 2 weeks of IV ampicillin from date of negative blood culture per ID recommendations Continue to encourage patient to get up and out of bed and do some activity Phone update to the patient's . She was concerned about his blood pressure being elevated. He is on midodrine for history of orthostasis. We can hold the midodrine for now but hesitant to start any antihypertensive medications. She is agreeable to this plan of care Continue to pursue rehab placement for his IV antibiotics and therapies Admission and Anticipated Discharge Date Admission Date: May 31, 2024 Subjective Patient states he was able to get some rest. Denies any chest pain or shortness of breath. His pelvic/hip/low back/sacral pain is somewhat improved especially now that he has moved a little bit more and is sitting up in the chair Physical Exam Physical Exam: Constitutional: Alert HEENT: Mucous membranes moist. Lungs: Clear to auscultation, decreased, no wheezes rales or rhonchi CV: S1-S2, regular Abdomen: Soft, nontender, nondistended Extremities: No significant edema Neuro: No focal deficits Psych: Cooperative, normal mood Results & Data Results & Data Vital Signs (Past 12 Hours) Vital Signs Temp Pulse Resp BP Pulse Ox O2 Del Method 06/04/24 07:56 36.9 C 76 18 173/93 H 98 Room Air Diagnostic Findings Reviewed imaging, laboratory and diagnostic studies. Pertinent findings as below. Creatinine 1.2 Electrolytes within normal range Hemoglobin 11.9, stable WBCs 6.8 Surveillance blood culture no growth to date (6) COPD (chronic obstructive pulmonary disease) COPD type: unspecified COPD Qualified Code(s): J44.9 - Chronic obstructive pulmonary disease, unspecified (10) Dementia Dementia type: unspecified type Dementia severity: unspecified severity Dementia behavioral or psychological symptom: without behavioral, psychotic, or mood disturbance or anxiety Qualified Code(s): F03.90 - Unspecified dementia, unspecified severity, without behavioral disturbance, psychotic disturbance, mood disturbance, and anxiety
--- NOTE | 2024-06-04 15:36 | XRay Report ---
XR cervical [id number] routine CLINICAL HISTORY: pain, recent fall TECHNIQUE: AP, lateral, bilateral oblique, and open-jaw images of the cervical spine were obtained. COMPARISON: Comparison is made to CT cervical spine 09/06/2023 FINDINGS: No fractures or subluxations are identified. Degenerative changes are noted in the cervical spine. Th e alignment is anatomic. Prevertebral soft tissues are within normal limits. IMPRESSION: Degenerative changes without evidence of acute abnormality. ACT 112: Negative or not required by law. Electronically signed by: Alonso Fay M.D. 06/04/2024 3:35 PM
--- NOTE | 2024-06-05 15:18 | Hospitalist Progress Note ---
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 Physical Exam Physical Exam: Constitutional: Alert HEENT: Mucous membranes moist. Lungs: Clear to auscultation, decreased, no wheezes rales or rhonchi CV: S1-S2, regular Abdomen: Soft, nontender, nondistended Extremities: No significant edema, PICC line in right upper extremity Neuro: No focal deficits Psych: Cooperative, normal mood Results & Data Results & Data Vital Signs (Past 12 Hours) Vital Signs Temp Pulse Resp BP Pulse Ox O2 Del Method 06/05/24 14:55 36.7 C 79 18 171/81 H 98 Room Air 06/05/24 07:20 36.7 C 66 18 165/95 H 96 Room Air Diagnostic Findings X-ray cervical spine, no fracture, arthritic changes (6) COPD (chronic obstructive pulmonary disease) COPD type: unspecified COPD Qualified Code(s): J44.9 - Chronic obstructive pulmonary disease, unspecified (10) Dementia Dementia type: unspecified type Dementia severity: unspecified severity Dementia behavioral or psychological symptom: without behavioral, psychotic, or mood disturbance or anxiety Qualified Code(s): F03.90 - Unspecified dementia, unspecified severity, without behavioral disturbance, psychotic disturbance, mood disturbance, and anxiety
[2024-06-06] MEDS: FUROSEMIDE 40 MG TAB PO ONE (13:29)
[2024-06-06] MEDS: NYSTATIN POWDER 15GM BTL EXT SCH (13:31)
--- NOTE | 2024-06-06 16:07 | Hospitalist Progress Note ---
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 Nurse reporting some irritation in the inguinal area. Physical Exam Physical Exam: Constitutional: Alert HEENT: Mucous membranes moist. Lungs: Clear to auscultation, decreased, no wheezes rales or rhonchi CV: S1-S2, regular, systolic murmur Abdomen: Soft, nontender, nondistended Extremities: 1+ pitting edema Neuro: No focal deficits Psych: Cooperative, normal mood Results & Data Results & Data Vital Signs (Past 12 Hours) Vital Signs Temp Pulse Resp BP BP Pulse Ox O2 Del Method 06/06/24 14:48 36.6 C 83 20 131/82 100 Room Air 06/06/24 11:18 36.4 C L 78 16 129/74 94 Room Air 06/06/24 07:15 36.8 C 77 16 146/80 H 94 Room Air (6) COPD (chronic obstructive pulmonary disease) COPD type: unspecified COPD Qualified Code(s): J44.9 - Chronic obstructive pulmonary disease, unspecified (10) Dementia Dementia type: unspecified type Dementia severity: unspecified severity Dementia behavioral or psychological symptom: without behavioral, psychotic, or mood disturbance or anxiety Qualified Code(s): F03.90 - Unspecified dementia, unspecified severity, without behavioral disturbance, psychotic disturbance, mood disturbance, and anxiety
[2024-06-07 07:50] VITALS: RESP 18
--- NOTE | 2024-06-07 11:48 | Hospitalist Progress Note ---
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 Bed apparently available on Wednesday, insurance authorization pending Continue therapies updated Admission and Anticipated Discharge Date Admission Date: May 31, 2024 Subjective No acute issues overnight. Patient frustrated that he is still here in the hospital Physical Exam Physical Exam: Constitutional: Alert, sitting up in chair Lungs: Clear to auscultation, decreased, no wheezes rales or rhonchi CV: S1-S2, regular Abdomen: Soft, nontender, nondistended Extremities: No significant edema Neuro: No focal deficits Psych: Cooperative, normal mood Results & Data Results & Data Vital Signs (Past 12 Hours) Vital Signs Temp Pulse Resp BP Pulse Ox O2 Del Method 06/07/24 09:00 Room Air 06/07/24 07:49 36.7 C 77 18 135/77 98 Room Air (6) COPD (chronic obstructive pulmonary disease) COPD type: unspecified COPD Qualified Code(s): J44.9 - Chronic obstructive pulmonary disease, unspecified (10) Dementia Dementia type: unspecified type Dementia severity: unspecified severity Dementia behavioral or psychological symptom: without behavioral, psychotic, or mood disturbance or anxiety Qualified Code(s): F03.90 - Unspecified dementia, unspecified severity, without behavioral disturbance, psychotic disturbance, m ood disturbance, and anxiety
--- NOTE | 2024-06-08 14:12 | Hospitalist Progress Note ---
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. Admission and Anticipated Discharge Date Admission Date: May 31, 2024 Subjective No acute issues overnight. Getting frustrated that it is taking a long time for him to get to [facility] Physical Exam Physical Exam: Constitutional: Alert HEENT: Mucous membranes moist. Lungs: Clear to auscultation, decreased, no wheezes rales or rhonchi CV: S1-S2, regular Abdomen: Soft, nontender, nondistended Extremities: No significant edema Neuro: No focal deficits Psych: Cooperative, normal mood Results & Data Results & Data Vital Signs (Past 12 Hours) Vital Signs Temp Pulse Resp BP Pulse Ox O2 Del Method 06/08/24 07:46 36.8 C 75 18 135/82 95 Room Air 06/08/24 07:00 Room Air (6) COPD (chronic obstructive pulmonary disease) COPD type: unspecified COPD Qualified Code(s): J44.9 - Chronic obstructive pulmonary disease, unspecified (10) Dementia Dementia type: unspecified type Dementia severity: unspecified severity Dementia behavioral or psychological symptom: without behavioral, psychotic, or mood disturbance or anxiety Qualified Code(s): F03.90 - Unspecified dementia, unspecified severity, without behavioral disturbance, psychotic disturbance, mood disturbance, and anxiety
[2024-06-08] MEDS: SENNA 8.6 MG TAB PO PRN (17:24)
[2024-06-09 07:45] VITALS: BP 149/84; PULSE 70; TEMP 98.2; O2SAT 98
--- NOTE | 2024-06-09 09:39 | Hospitalist Progress Note ---
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 No ureteral calculi or hydronephrosis. No bowel obstruction or bowel wall thickening. -- Urine culture not contributory --Blood culture from 05/31/2024 grew Enterococcus faecalis --Repeat blood cultures from 06/02/2024 negative -- Continue IV ampicillin as recommended by infectious disease Appreciate ID input Plan to be discharged to rehab facility today Patient will require 2-week course of IV antibiotics from 06/02/2024 Hypokalemia Replete electrolytes as needed Monitor Other chronic conditions Adrenal insufficiency DVT/PE S/P IVC filter Bladder, prostate cancer Chronic anemia CKD stage III COPD Mild cognitive impairment GERD Continue home medications as able DVT Px: Heparin SQ Disposition SNF Admission and Anticipated Discharge Date Admission Date: May 31, 2024 Subjective Patient is seen and examined at bedside Offers no new complaints today Reports having some chronic lower back pain Denies any chest pain, dyspnea, nausea, vomiting, abdominal pain Plan to discharge to rehab facility today Review of Systems Review of Systems: All systems reviewed & are unremarkable except as noted in Subjective Physical Exam Physical Exam: Physical Exam: Vitals signs as noted above General Appearance:Moderately built and nourished, no apparent distress Head: normocephalic, Atraumatic Eyes: normal inspection, EOMI Neck: supple, Trachea midline Respiratory/Chest: Normal breath sounds, CTA, No accessory muscle use Cardiovascular: S1, S2, + murmur Abdomen/GI:Soft, Non tender, Bowel sounds present Extremities/Musculoskeletal:normal inspection, 1+edema, chronic venous stasis changes Neurologic/Psych:AAOX3, grossly no focal neurological deficits Skin: normal color, warm Results & Data Results & Data Vital Signs (Past 12 Hours) Vital Signs Temp Pulse Resp BP Pulse Ox O2 Del Method 06/09/24 09:30 Room Air 06/09/24 07:44 36.8 C 70 18 149/84 H 98 Room Air 06/08/24 22:10 165/78 H (6) COPD (chronic obstructive pulmonary disease) COPD type: unspecified COPD Qualified Code(s): J44.9 - Chronic obstructive pulmonary disease, unspecified (10) Dementia Dementia behavioral or psychological symptom: without behavioral, psychotic, or mood disturbance or anxiety Dementia severity: unspecified severity Dementia type: unspecified type Qualified Code(s): F03.90 - Unspecified d ementia, unspecified severity, without behavioral disturbance, psychotic disturbance, mood disturbance, and anxiety
--- NOTE | 2024-06-09 13:39 | Discharge Summary ---
Date of Service June 09, 2024 Admission HPI Per Admitting Provider 78-year-old male with past medical history significant for adrenal insufficiency on chronic steroids, bronchial asthma/COPD, obstructive sleep apnea, history of DVT/PE s/p IVC filter no longer on anticoagulation due to bleeding issues, bladder cancer s/p surgery off of Keytruda secondary to development of myocarditis, prostate cancer s/p radiation therapy, valvular heart disease ,moderate aortic stenosis, mild aortic regurgitation, hypertension, orthostatic hypotension, chronic anemia, mild cognitive impairment and dementia, ambulatory dysfunction ambulates with a walker, urinary incontinence, currently on chronic Devlin, chronic venous insufficiency, CKD stage III who lives at home with his was brought in because he fell at home last night and in the ER was spiking temperatures and has leukocytosis and getting admitted for possible urosepsis. states patient is getting confused for last 2 weeks. She thought of UTI as urine was foul-smelling but outpatient urine cultures were negative. Last night he could not eat much. When the checked him in the night she y found him on the floor. Patient states he did not lose consciousness. His Devlin is changed in the ER. He was tachycardic and spiking temperatures. Received 2 L of fluids and Rocephin in the ER. Patient knows that he is in the hospital. Can tell his name. Can tell his date of . Says he is not good with the current dates. Denies any headache. Denies dizziness. No blurred vision. No runny nose or sore throat. Has occasional cough. Denies chest pain. Denies shortness of breath. Denies nausea. Denies abdominal pain. Denies diarrhea or constipation. Currently hemodynamics are okay. Past medical history. As mentioned above Past surgical history. Cataract surgery. Removal of appendix. Social history. . No smoking. No alcohol use. No drug use. Family history. Brother had prostate cancer. Father had prostate cancer. Mother had cancer. Admission Exam Per Admitting Provider General- Not in acute distress Head- atraumatic Eyes- PERRL. ENT- oropharynx clear Neck- supple, no JVD. Lungs- clear to auscultation no wheezing or crackles Heart- regular rhythm;Tachycardia, ESM, no gallop Abdomen- normal bowel sounds, soft, nontender, no distension. Extremities- no pretibial edema, no erythema seen. Neuro- alert, oriented x 2; PERRL, no facial palsy; no dysarthria; moves extremities Principal Diagnosis Sepsis from Enterococcus bacteremia Complicated urinary tract infection Acute metabolic encephalopathy Discharge Data Allergies Allergy/AdvReac Type Severity Reaction Status Date / Time Iodinated Contrast Media Allergy Severe LOVERSOL---CARDIAC Verified 01/04/24 15:[address] CONTRAST clindamycin Allergy Intermediate Rash Verified 01/04/24 15:42 chocolate flavor AdvReac Severe DIARRHEA/ Verified 01/04/24 15:42 Cannot take, interacts w/ medications. cranberry AdvReac Severe Cannot Verified 01/04/24 15:42 take, interacts w/ medications. pembrolizumab [From [employer]] AdvReac Intermediate myocarditis Verified 01/04/24 15:42 Consultations 05/31/24 05:16 ED Decision to Admit Stat 06/01/24 10:58 Consult Infectious Diseases Routine Procedures Performed Laboratory Results WBC 6.87 K/ul (4.8-10.8) 06/04/24 05:32 RBC 4.06 M/uL (4.70-6.10) L 06/04/24 05:32 Hgb 11.9 g/dl (14.0-18.0) L 06/04/24 05:32 Hct 36.9 % (42.0-52.0) L 06/04/24 05:32 MCV 90.9 fL (80.0-100.0) 06/04/24 05:32 MCH 29.3 pg (25.0-34.0) 06/04/24 05:32 MCHC 32.2 g/dL (32.0-36.0) 06/04/24 05:32 RDW Std Deviation 47.4 fL (36.4-46.3) H 06/04/24 05:32 RDW Coeff of Robert 14.3 % (11.5-14.5) 06/04/24 05:32 Plt Count 169 K/uL (130-400) 06/04/24 05:32 MPV 9.1 fL (9.4-12.4) L 06/04/24 05:32 Immature Gran % (Auto) 0.4 % 06/01/24 05:28 Neut % (Auto) 87.1 % 06/01/24 05:28 Lymph % (Auto) 7.8 % 06/01/24 05:28 Blanco % (Auto) 4.7 % 06/01/24 05:28 Eos % (Auto) 0.0 % 06/01/24 05:28 Baso % (Auto) 0.0 % 06/01/24 05:28 Neut # (Auto) 6.85 K/uL (1.40-6.50) H 06/01/24 05:28 Lymph # (Auto) 0.61 K/uL (1.20-3.40) L 06/01/24 05:28 Blanco # (Auto) 0.37 K/uL (0.11-0.59) 06/01/24 05:28 Eos # (Auto) 0.00 K/uL (0.00-0.50) 06/01/24 05:28 Baso # (Auto) 0.00 K/uL (0.00-0.20) 06/01/24 05:28 Immature Gran # (Auto) 0.03 K/uL (0.01-0.20) 06/01/24 05:28 PT 11.3 Seconds (9.0-12.0) 05/31/24 04:15 INR 1.0 (0.9-1.1) 05/31/24 04:15 APTT 27 Seconds (21-31) 05/31/24 04:15 PTT Ratio 1.0 05/31/24 04:15 Sodium 141 mmol/L (136-145) 06/04/24 05:32 Potassium 3.7 mmol/L (3.5-5.1) 06/04/24 05:32 Chloride 106 mmol/L (98-107) 06/04/24 05:32 Carbon Dioxide 30 mmol/L (21-32) 06/04/24 05:32 Anion Gap 5 (3-11) 06/04/24 05:32 BUN 18 mg/dl (6-23) 06/04/24 05:32 Creatinine 1.22 mg/dl (0.6-1.4) 06/04/24 05:32 Est Cr Clr Drug Dosing 68.6 ml/min 06/04/24 05:32 eGFR 61.06 06/04/24 05:32 BUN/Creatinine Ratio 14.8 (10-20) 06/04/24 05:32 Glucose 88 mg/dl (70-99(Fasting)) 06/04/24 05:32 Lactate 1.9 mmol/L (0.4-2.0) 05/31/24 06:07 Calcium 8.4 mg/dl (8.6-10.3) L 06/04/24 05:32 Phosphorus 2.9 mg/dl (2.5-4.9) 06/01/24 05:28 Magnesium 1.9 mg/dl (1.7-2.4) 06/02/24 06:56 Total Bilirubin 1.2 mg/dl (0.2-1.0) H 05/31/24 04:15 AST 18 U/L (13-39) 05/31/24 04:15 ALT 13 U/L (7-52) 05/31/24 04:15 Alkaline Phosphatase 73 U/L (34-104) 05/31/24 04:15 Total Protein 7.1 gm/dl (6.0-8.3) 05/31/24 04:15 Albumin 4.1 gm/dl (3.4-5.0) 05/31/24 04:15 Globulin 3.0 gm/dl (2.5-4.0) 05/31/24 04:15 Albumin/Globulin Ratio 1.4 (0.9-2) 05/31/24 04:15 Procalcitonin 0.70 ng/ml (0-0.5) H 05/31/24 04:15 Urine Color Shauna 05/31/24 08:45 Urine Appearance Turbid (Clear) A 05/31/24 08:45 Urine pH 6.0 (4.5-7.5) 05/31/24 08:45 Ur Specific Valier 1.025 (1.000-1.030) 05/31/24 08:45 Urine Protein 3+ (Negative) H 05/31/24 08:45 Urine Glucose (UA) Negative (Negative) 05/31/24 08:45 Urine Ketones 1+ (Negative) H 05/31/24 08:45 Urine Blood 3+ (Negative) H 05/31/24 08:45 Urine Nitrite Negative (Negative) 05/31/24 08:45 Urine Bilirubin Negative (Negative) 05/31/24 08:45 Urine Urobilinogen Negative (Negative) 05/31/24 08:45 Ur Leukocyte Esterase 2+ (Negative) H 05/31/24 08:45 Urine WBC (Auto) >50 /hpf (0-5) H 05/31/24 08:45 Urine RBC (Auto) >20 /hpf (0-2) H 05/31/24 08:45 U Hyaline Cast (Auto) 3-5 /lpf (0-2) H 05/31/24 08:45 U Epithel Cells (Auto) 0-2 /hpf (0-2) 05/31/24 08:45 Urine Bacteria (Auto) None Seen (None Seen) 05/31/24 08:45 Random Vancomycin 6.2 mcg/ml (10-20) L 06/01/24 05:28 SARS-CoV-2 (PCR) NEGATIVE (Negative) 05/31/24 04:29 Enterococc faecalis PCR DETECTED (NotDetected) A 05/31/24 04:15 Influenza Type A (PCR) Negative (Neg) 05/31/24 04:29 Influenza Type B (PCR) Negative (Neg) 05/31/24 04:29 RSV (RT-PCR) Negative (Neg) 05/31/24 04:29 Darian/B-Vanco Res Genes VRE Not Detected (NotDetected) 05/31/24 04:15 Bld Cult ID Panel PCR See PCR Comment (NotDetected) 05/31/24 04:15 Impressions Hip X-Ray 05/31/24 04:16 XR hip RT min 2V CLINICAL HISTORY: R hip pain, fall TECHNIQUE: 2 views of the right hip were obtained. Comparison: None available at the time of this dictation. FINDINGS: There is no evidence of an acute fracture. Degenerative changes are seen in the hip joint. Vascular calcifications are noted. IMPRESSION: Degenerative changes without evidence of acute abnormality. ACT 112: Negative or not required by law. Electronically signed by: Alonso Fay M.D. 05/31/2024 6:53 AM Chest X-Ray 05/31/24 04:17 XR chest 1V portable CLINICAL HISTORY: trauma COMPARISON STUDY: Chest CT October 10, 2023. Chest radiograph January 04, 2024. FINDINGS: No pneumothorax or pleural effusion. Opacity along the left heart border favors atelectasis. Cardiomegaly is unchanged. Pulmonary vascularity is normal. There is no consolidation to suggest pneumonia. IMPRESSION: 1. No pneumothorax. 2. Opacity along the left heart border which favors atelectasis. ACT 112: Negative or not required by law. Electronically signed by: Boris Keys M.D. 05/31/2024 6:[address] 06/01/24 10:[address] WITHOUT CONTRAST; CT LUMBAR SPINE WITHOUT IV CONTRAST CT DOSE: 1676.25 mGy.cm HISTORY: Acute pelvis and low back pain in a patient with history of bladder carcinoma. bladder cancer, pyleonephritis TECHNIQUE: Multiaxial CT images of the abdomen, pelvis and lumbar spine were performed without contrast. A dose lowering technique was utilized adhering to the principles of ALARA. COMPARISON STUDY: CT abdomen and pelvis 09/09/2023. FINDINGS: CT ABDOMEN/PELVIS: Small pericardial and pleural effusions. Mild dependent subsegmental bibasilar atelectasis. No free air. Unenhanced spleen, pancreas, gallbladder, adrenal glands and liver. Cortical thinning of the kidneys with mild nonspecific bilateral perinephric stranding. A 3 mm nonobstructing calculus of the superior pole right kidney. No ureteral calculi or hydronephrosis. Probable cyst of the superior pole left kidney, 1.5 cm. Decompressed urinary bladder with Devlin catheter in place. Prostatectomy. Atherosclerosis of the aorta. Infrarenal IVC filter. No lymphadenopathy. No bowel obstruction or bowel wall thickening. No ascites or mesenteric inflammation. Diastases recti. Bones appear grossly intact. 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 L4-L5 disc space is similar to the prior study. CT LUMBAR SPINE: Moderate intervertebral disc space narrowing with bridging osteophytosis at L4-L5. Irregularity of the disc space at this level is similar to the 09/09/2023 exam. No acute fracture or subluxation. Suboptimal evaluation of the central canal and neural foramina by CT technique. No high-grade central canal stenosis is identified. Mild central canal stenosis at L4-L5 with mild bilateral foraminal narrowing. IMPRESSION: 1. Right nephrolithiasis. No ureteral calculi or hydronephrosis. 2. No bowel obstruction or bowel wall thickening. 3. No acute lumbar spine fracture is identified. 4. Trace pleural and pericardial effusions. 5. Additional incidental findings as above. ACT 112: Negative or not required by law. The above report was generated using voice recognition software. It may contain grammatical, syntax or spelling errors. Dictated: 06/01/2024 12:46 PM Transcribed: 06/01/2024 1:09 PM [email or web address] [id number] [email or web address] Electronically signed by: Chaim Curiel M.D. 06/01/2024 1:54 PM Abdomen/Pelvis CT 06/01/24 11:[address] WITHOUT CONTRAST; CT LUMBAR SPINE WITHOUT IV CONTRAST CT DOSE: 1676.25 mGy.cm HISTORY: Acute pelvis and low back pain in a patient with history of bladder carcinoma. bladder cancer, pyleonephritis TECHNIQUE: Multiaxial CT images of the abdomen, pelvis and lumbar spine were performed without contrast. A dose lowering technique was utilized adhering to the principles of ALARA. COMPARISON STUDY: CT abdomen and pelvis 09/09/2023. FINDINGS: CT ABDOMEN/PELVIS: Small pericardial and pleural effusions. Mild dependent subsegmental bibasilar atelectasis. No free air. Unenhanced spleen, pancreas, gallbladder, adrenal glands and liver. Cortical thinning of the kidneys with mild nonspecific bilateral perinephric stranding. A 3 mm nonobstructing calculus of the superior pole right kidney. No ureteral calculi or hydronephrosis. Probable cyst of the superior pole left kidney, 1.5 cm. Decompressed urinary bladder with Devlin catheter in place. Prostatectomy. Atherosclerosis of the aorta. Infrarenal IVC filter. No lymphadenopathy. No bowel obstruction or bowel wall thickening. No ascites or mesenteric inflammation. Diastases recti. Bones appear grossly intact. 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 L4-L5 disc space is similar to the prior study. CT LUMBAR SPINE: Moderate intervertebral disc space narrowing with bridging osteophytosis at L4-L5. Irregularity of the disc space at this level is similar to the 09/09/2023 exam. No acute fracture or subluxation. Suboptimal evaluation of the central canal and neural foramina by CT technique. No high-grade central canal stenosis is identified. Mild central canal stenosis at L4-L5 with mild bilateral foraminal narrowing. IMPRESSION: 1. Right nephrolithiasis. No ureteral calculi or hydronephrosis. 2. No bowel obstruction or bowel wall thickening. 3. No acute lumbar spine fracture is identified. 4. Trace pleural and pericardial effusions. 5. Additional incidental findings as above. ACT 112: Negative or not required by law. The above report was generated using voice recognition software. It may contain grammatical, syntax or spelling errors. Dictated: 06/01/2024 12:46 PM Transcribed: 06/01/2024 1:09 PM Neto [id number] [email or web address] Electronically signed by: Chaim Curiel M.D. 06/01/2024 1:54 PM Cervical Spine X-Ray 06/04/24 14:35 XR cervical [id number] routine CLINICAL HISTORY: pain, recent fall TECHNIQUE: AP, lateral, bilateral oblique, and open-jaw images of the cervical spine were obtained. COMPARISON: Comparison is made to CT cervical spine 09/06/2023 FINDINGS: No fractures or subluxations are identified. Degenerative changes are noted in the cervical spine. The alignment is anatomic. Prevertebral soft tissues are within normal limits. IMPRESSION: Degenerative changes without evidence of acute abnormality. ACT 112: Negative or not required by law. Electronically signed by: Alonso Fay M.D. 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 No ureteral calculi or hydronephrosis. No bowel obstruction or bowel wall thickening. -- Urine culture not contributory --Blood culture from 05/31/2024 grew Enterococcus faecalis --Repeat blood cultures from 06/02/2024 negative -- Continue IV ampicillin as recommended by infectious disease Appreciate ID input Plan to be discharged to rehab facility today Patient will require 2-week course of IV antibiotics from 06/02/2024 Hypokalemia Replete electrolytes as needed Monitor Other chronic conditions Adrenal insufficiency DVT/PE S/P IVC filter Bladder, prostate cancer Chronic anemia CKD stage III COPD Mild cognitive impairment GERD Continue home medications as able DVT Px: Heparin SQ Disposition SNF Total Time Total Time Spent Total Time Spent (In Minutes): 46 minutes Discharge Plan Discharge Items Patient Disposition: Transfer [facility] Fac Reason For Visit: SEPSIS Discharge Diagnosis: Sepsis from Enterococcus bacteremia Complicated urinary tract infection Activity: As commented below Activity Comment: Increase activity as tolerated Exercise/Sports: Gradually increase as tolerated Non-emergency contact: Primary Care Provider and Urologist Call non-emergency contact if: you have any medication questions, your symptoms worsen and your temperature is above 101.5 Follow-up/Referrals: Deondre Hill MD [Primary Care Provider] - Diet: Heart Healthy Addtl Attending Provider Instructions: Complete course of antibiotics, IV ampicillin through June 16, 2024 as recommended by your infectious disease physician. Remove PICC line after antibiotics completed CBC, BMP weekly while on antibiotics Follow-up with your outpatient specialist. Chronic medical issues as previously arranged Seek immediate medical attention if your symptoms reoccur or worsen Please take all medications as instructed on discharge list below. Please call if you have any questions or problems. You can reach a [facility] hospitalist on duty at [facility] 24 hours a day by calling [phone] Pending Studies at Discharge: No Stand-Alone Forms: My [facility] Skilled Items Patient informed of condition?: Yes DNR: No Discharge Level of Care: Skilled Communicable Disease: No Discharge Prognosis: Improving Lines: Mid-Line Urinary Catheter: Yes Medications and DC Order Prescriptions: New acetaminophen 325 mg Tablet 650 mg PO Q4H PRN (Reason: fever or pain) Qty: 30 0RF memantine 10 mg Tablet 10 mg PO BID Qty: 60 0RF lidocaine 5 % Adhesive Patch,Medicated 2 patch transdermal DAILY Qty: 20 0RF hydrocortisone [Cortef] 10 mg Tablet 10 mg PO 1700 30 Days Qty: 30 0RF hydrocortisone [Cortef] 10 mg Tablet 20 mg PO QAM 30 Days Qty: 60 0RF nystatin [Nystop] 100,000 unit/gram Powder 1 applic EXT BID Qty: 30 0RF ampicillin sodium 2 gram recon soln 2 g IV Q4H 8 Days Continued ascorbic acid (vitamin C) 1,000 mg Tablet 1,000 mg PO DAILY Qty: 30 0RF cyanocobalamin (vitamin B-12) 1,000 mcg Tablet 1,000 mcg PO DAILY Qty: 30 0RF aspirin 81 mg Tablet,Delayed Release (Dr/Ec) 81 mg PO DAILY Qty: 30 0RF omeprazole 20 mg capsule,delayed release(DR/EC) 20 mg PO DAILY Qty: 30 0RF epinephrine 0.3 mg/0.3 mL Auto-Injector 0.3 mg IM UD PRN (Reason: Anaphylaxis) Qty: 3 0RF Rx Instructions: prn anaphylaxis albuterol sulfate 90 mcg/actuation HFA aerosol inhaler 2 puff INHALATION Q4H PRN (Reason: Shortness Of Breath Or Wheezing) Qty: 16 0RF ferrous sulfate 325 mg (65 mg iron) Tablet,Delayed Release (Dr/Ec) 325 mg PO DAILY Qty: 30 0RF fludrocortisone 0.1 mg tablet 0.1 mg PO DAILY Qty: 30 0RF solifenacin 5 mg tablet 5 mg PO DAILY Qty: 30 0RF magnesium chloride 64 mg Tablet,Delayed Release (Dr/Ec) 64 mg PO BID Qty: 60 0RF cholecalciferol (vitamin D3) [Vitamin D3] 125 mcg (5,000 unit) Tablet 125 mcg PO DAILY Qty: 30 0RF multivit with min-folic acid [Multivitamin Gummies] 200 mcg Tablet,Chewable 1 tab PO DAILY Qty: 30 0RF Trelegy Ellipta 200-62.5-25 mcg blister with device 1 inh INHALATION DAILY Qty: 1 0RF Changed Senna-C 1 tab PO DAILY Qty: 30 0RF Held sulfamethoxazole-trimethoprim 800-160 mg tablet 1 tab PO UD Hold Instructions: Resume on 06/17/24. hold while on ampicillin Rx Instructions: 1 tab po 3 days a week (Wed,Wed and Wednesday) Discontinued prednisone 10 mg tablet 10 mg PO DAILY midodrine 5 mg tablet 5 mg PO UD Rx Instructions: midodrine 5mg TID at 8am, Noon and 4pm. sertraline 25 mg tablet 25 mg PO DAILY memantine 5 mg tablet 5 mg PO DAILY hydrocortisone [Cortef] 10 mg Tablet 10 mg PO BID Discharge Orders: Discharge Order (Routine); Ordered 06/09/24 Ordered By: Matt Gongora Admission Data Admit Date/Time: 05/31/24 06:42 Attending Provider: Matt Gongora Admit Provider: Curtis New Primary Care Provider: Deondre Hill Other Providers: Curtis New; Darryn Dahl; Mayank Daly; Scott Villanueva I.; Adonis Rodgers II; Suha Ortiz; Tom Marti; Pancho Sullivan; Kiki Leach; [place],[facility] Other Interventions: Discharge Summary Assessment (RN) Last Done: 06/09/24 11:52
--- NOTE | 2024-06-12 05:31 | Coding Query ---
CODING QUERY To promote full compliance with coding requirements relating to patient care, provider participation is requested in all cases of core shaper uncertainty. Please assist us with the question(s) below: Coding Question(s): Pt admitted with severe enterococcal sepsis in the setting of complicated UTI, chronic indwelling urinary catheter and bladder cancer.Please document, if known or suspected, the etiology of the Sepsis. Thanks for your help! Larry Riggins [facility] Physician's Response(s): Sepsis secondary to Complicated UTI/Enterococcal bacteremia Principal Diagnosis: "that condition established after study, to be chiefly responsible for occasioning the admission of the patient to the hospital for care." Co-Existing Principal Diagnosis: "when two or more diagnoses equally meet the criteria for principal diagnosis as determined by the circumstances of admission, diagnostic work up, and/or therapy provided, and the Alphabetic Index, Tabular List, or another coding guideline does not provide sequencing direction, any one of the diagnoses may be sequenced first." "When the physician has documented what appears to be a current diagnosis in the body of the record, but has not included the diagnosis in the final diagnostic statement, the physician should be asked whether the diagnosis should be added." (Source [facility]oding [facility] 2 QTR90. p3-4) MARIKA
== END 2024-06-09 12:50 | DRG 698 ==
LOC: ED 04:02 → EDINP 06:42 → SUATTDRO 06:42 → 4W 09:15 → 3W 06-01 21:36

== ENCOUNTER 2024-06-23 13:25 | Inpatient (IN) ==
[2024-06-23 15:05] LABS: Basophils # (auto) 0.03 K/uL (0.00-0.20); Basophils % (auto) 0.3 %; Eosinophils # (auto) 0.12 K/uL (0.00-0.50); Eosinophils % (auto) 1.4 %; Immature Granulocytes # (auto) 0.03 K/uL (0.01-0.20); Immature Granulocytes % (auto) 0.3 %; Lymphocytes # (auto) 1.74 K/uL (1.20-3.40); Lymphocytes % (auto) 19.8 %; Mean Corpuscular Hemoglobin 28.8 pg (25.0-34.0); Mean Corpuscular Hgb Conc 32.4 g/dL (32.0-36.0); Mean Corpuscular Volume 88.7 fL (80.0-100.0); Mean Platelet Volume 8.8 fL (9.4-12.4); Monocytes # (auto) 0.62 K/uL (0.11-0.59); Monocytes % (auto) 7.1 %; Neutrophils # (auto) 6.23 K/uL (1.40-6.50); Neutrophils % (auto) 71.1 %; Platelet Count 307 K/uL (130-400); RDW Coefficient of Variation 13.8 % (11.5-14.5); RDW Standard Deviation 44.8 fL (36.4-46.3); Red Blood Count 4.17 M/uL (4.70-6.10); White Blood Count 8.77 K/ul (4.8-10.8)
--- NOTE | 2024-06-23 15:13 | Emergency Department Note ---
Impression & Plan Complicated UTI (urinary tract infection), Chronic indwelling Devlin catheter ED Provider Note NAME: EDWIN ESPANA AGE: 78 SEX: M : 1945 ARRIVES VIA: Ambulance INFORMANT: Patient, ED PROVIDER(S): Ilan Gramajo MD CHIEF COMPLAINT: Increased weakness, UTI HPI: This is a 78-year-old male presenting for increased weakness. Patient was at his cardiology office today. 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 He was also diagnosed with UTI/sepsis about 3 weeks ago he was discharged with IV antibiotics via PICC line. He has had a rehab facility. He was seen by his exploration geologist for increased weakness and urinalysis done yesterday does reveal signs of contamination/UTI. Patient has noted increasing weakness and does not feel better. ROS: See above HPI for pertinent positives & negatives. A total of 10 systems reviewed and were otherwise negative. PAST MEDICAL HISTORY: See Below PAST SURGICAL HISTORY: See Below FAMILY HISTORY: See Below SOCIAL HISTORY: See Below HOME MEDICATIONS: See Below ALLERGIES: See Below VITALS: See Below PHYSICAL EXAMINATION: General: Chronically ill-appearing, weak Head: Normocephalic and atraumatic Eyes: Normal inspection, extraocular muscles intact Ear, nose, throat: Normal external exam Neck: Normal range of motion Respiratory: lungs clear to auscultation bilaterally Cardiovascular: Regular rate/rhythm, no murmur GI: soft, nontender, no guarding or rebound Extremities: nontender, moves all extremities Neuro: The patient awake and alert, appropriately conversive, no focal deficits, symmetric faces Skin: Warm, dry, and intact MEDICAL DECISION MAKING: This is a 78-year-old male presenting for increased weakness. Will repeat urinalysis and blood cultures. Patient care already discussed with patient's exploration geologist, Dr. Valdes he called me the patient's current care. He recommends admission to the hospital for the recurrent UTI and weakness. -Urinalysis does show signs of UTI at this time. -Bloodwork is reviewed showing no significant leukocytosis, anemia, electrolyte or creatinine abnormality -Patient mated to [facility] service, under Dr. Dickerson Differential diagnosis: UTI, sepsis, failure to thrive ER treatment provided: See below Diagnostics interpreted by me: ECG: None Cardiac Monitoring: An order was placed for continuous cardiac monitoring. The monitor shows a rate of 88 with sinus rhythm. Laboratory studies: As stated above and show below. Imaging studies: See below. Past Med/Surg History Problem List (Updated 06/23/24 @ 18:16 by Ialn Gramajo MD) Elevated blood pressure reading Complicated UTI (urinary tract infection) (Acute) Chronic indwelling Devlin catheter (Acute) Mild cognitive impairment Hx of prostatic malignancy ~ 2013- s/p Lupron and XRT Myocarditis Primary bladder malignant neoplasm Orthostatic hypotension Coagulopathy (Acute) Obstructive sleep apnea (Acute) Adrenal insufficiency (Acute 06/04/14) Bladder cancer (Acute) S/P IVC filter Stage 3 chronic kidney disease (Acute) History of pulmonary embolism hx "many years ago" unknown etiology History of DVT (deep vein thrombosis) hx "many years ago" unknown etiology acute on chronic DVT during 12/2022 [facility] admission- Coumadin d/c'ed due to anemia and hematuria; IVC filter placed 12/28/22 COPD (chronic obstructive pulmonary disease) (Chronic) well controlled. uses Breo daily with exercise Aortic stenosis Mild per 12/2022 ECHO -follows annually with cardiology Medical History Fracture of multiple teeth Sacral pressure sore Ambulatory dysfunction Generalized weakness Anemia Urethral stricture Ascending aorta dilation Mild- 4.4cm per 11/2022 ECHO Obesity Venous insufficiency (chronic) (peripheral) Radiation cystitis Kidney stones x1 episode. no surgery needed. Cardiac arrest hx r/t IV Contrast Dye "many years ago" Allergic rhinitis Contrast media allergy Hiatal hernia Surgical History S/P cataract extraction History of right cataract extraction History of colonoscopy H/O sinus surgery History of appendectomy S/P TURP (status post transurethral resection of prostate) Status post cystoscopy (11/07/13) Family History Father Prostate cancer Brother Prostate cancer Mother Thyroid cancer Cancer Other No family history of adverse response to anesthesia Social History Smoking Status: Never smoker Tobacco Type: Cigarettes Second Hand Exposure: No; Do You Dip or Chew Tobacco: No; Hx Alcohol Use: No Hx Substance Use: No Preferred Language: Vincentian Communication Ability: Impaired Visual Impairment: Limited Hearing Ability: Normal Assistant News Director Required: No Beliefs That Will Affect Care: None marital status: Current Living Situation: Spouse Current Living Situation Comment: at home with current occupational status: retired How many Children do You have: 0 Feels Safe at Home: Yes Diet: regular during the past year weight has: decreased > 10 lbs Seatbelt Use: always Do you think of yourself as: straight/heterosexual Gender Identity: Male Assistive Devices: Bedside Commode, Hospital Bed and Walker Allergies Allergies Allergy/AdvReac Type Severity Reaction Status Date / Time Iodinated Contrast Media Allergy Severe LOVERSOL---CARDIAC Verified 06/22/24 13:[address] CONTRAST clindamycin Allergy Intermediate Rash Verified 06/22/24 13:25 chocolate flavor AdvReac Severe DIARRHEA/ Verified 06/22/24 13:25 Cannot take, interacts w/ medications. cranberry AdvReac Severe Cannot Verified 06/22/24 13:25 take, interacts w/ medications. pembrolizumab [From [employer]] AdvReac Intermediate myocarditis Verified 06/22/24 13:25 Home Meds Home Medications Medication Instructions Recorded Confirmed sulfamethoxazole 800 1 tab PO UD 05/31/24 06/23/24 mg-trimethoprim 160 mg tablet hydrocortisone 10 mg tablet 20 mg PO 1500 06/23/24 06/23/24 (Cortef) hydrocortisone 10 mg tablet 30 mg PO QAM 06/23/24 06/23/24 (Cortef) Previous Rx's Medication Instructions Recorded Senna-C 1 tab PO DAILY Constipation #30 06/08/24 tabs acetaminophen 325 mg tablet 650 mg (2 x 325 mg) PO Q4H PRN 06/08/24 fever or pain #30 tabs albuterol sulfate 90 mcg/actuation 2 puff inhalation Q4H PRN 06/08/24 aerosol inhaler Shortness Of Breath Or Wheezing #16 grams ascorbic acid (vitamin C) 1,000 mg 1,000 mg PO DAILY #30 tabs 06/08/24 tablet aspirin 81 mg tablet,delayed 81 mg PO DAILY #30 tabs 06/08/24 release cholecalciferol (vitamin D3) 125 125 mcg PO DAILY #30 tabs 06/08/24 mcg (5,000 unit) tablet (Vitamin D3) cyanocobalamin (vitamin B-12) 1,000 mcg PO DAILY #30 tabs 06/08/24 1,000 mcg tablet epinephrine 0.3 mg/0.3 mL 0.3 mg (0.3 mL) IM UD PRN 06/08/24 injection, auto-injector Anaphylaxis #3 ea ferrous sulfate 325 mg (65 mg 325 mg PO DAILY #30 tabs 06/08/24 iron) tablet,delayed release fludrocortisone 0.1 mg tablet 0.1 mg PO DAILY #30 tabs 06/08/24 fluticasone fur. 200 mcg-umeclid 1 inh inhalation DAILY #1 ea 06/08/24 62.5 mcg-vilant 25 mcg inhalat.powder (Trelegy Ellipta) lidocaine 5 % topical patch 2 patch transdermal DAILY #20 ea 06/08/24 magnesium chloride 64 mg 64 mg PO BID #60 tabs 06/08/24 (magnesium chloride) tablet,delayed release memantine 10 mg tablet 10 mg PO BID #60 tabs 06/08/24 multivitamin with minerals-folic 1 tab PO DAILY #30 tabs 06/08/24 acid 200 mcg chewable tablet (Multivitamin Gummies) nystatin 100,000 unit/gram topical 1 applic EXT BID #30 grams 06/08/24 powder (Nystop) omeprazole 20 mg capsule,delayed 20 mg PO DAILY #30 caps 06/08/24 release solifenacin 5 mg tablet 5 mg PO DAILY #30 tabs 06/08/24 Results & Data (ED) Vital Signs Vital Signs - 24 hr 06/23/24 13:31 06/23/24 13:31 06/23/24 13:46 Temperature 36.8 C Temperature Source Oral Pulse Rate 85 79 Pulse Rate [Apical] Respiratory Rate 20 Respiratory Effort / Characteristics Non-Labored Respiratory Depth Normal Blood Pressure 175/97 H Blood Pressure [Left Arm] Blood Pressure Mean 123 Blood Pressure Mean [Left Arm] Pulse Oximetry 100 100 Oxygen Delivery Method Room Air Room Air Sepsis Recent Fever Within 48 Hours No Sepsis New/Unexplained Change in Mental Status No Sepsis Action Taken by Nursing No Action Required 06/23/24 14:30 06/23/24 15:30 Temperature Temperature Source Pulse Rate Pulse Rate [Apical] 80 81 Respiratory Rate 18 18 Respiratory Effort / Characteristics Non-Labored Non-Labored Respiratory Depth Normal Normal Blood Pressure Blood Pressure [Left Arm] 177/99 H 192/92 H Blood Pressure Mean Blood Pressure Mean [Left Arm] 125 125 Pulse Oximetry 98 98 Oxygen Delivery Method Room Air Room Air Sepsis Recent Fever Within 48 Hours Sepsis New/Unexplained Change in Mental Status Sepsis Action Taken by Nursing Laboratory Data 06/23/24 14:35 06/23/24 14:35 Lab Results 06/23/24 Range/Units 14:35 WBC 8.77 (4.8-10.8) K/ul RBC 4.17 L (4.70-6.10) M/uL Hgb 12.0 L (14.0-18.0) g/dl Hct 37.0 L (42.0-52.0) % MCV 88.7 (80.0-100.0) fL MCH 28.8 (25.0-34.0) pg MCHC 32.4 (32.0-36.0) g/dL RDW Std Deviation 44.8 (36.4-46.3) fL RDW Coeff of Robert 13.8 (11.5-14.5) % Plt Count 307 (130-400) K/uL MPV 8.8 L (9.4-12.4) fL Immature Gran % (Auto) 0.3 % Neut % (Auto) 71.1 % Lymph % (Auto) 19.8 % Sevier % (Auto) 7.1 % Eos % (Auto) 1.4 % Baso % (Auto) 0.3 % Neut # (Auto) 6.23 (1.40-6.50) K/uL Lymph # (Auto) 1.74 (1.20-3.40) K/uL Sevier # (Auto) 0.62 H (0.11-0.59) K/uL Eos # (Auto) 0.12 (0.00-0.50) K/uL Baso # (Auto) 0.03 (0.00-0.20) K/uL Immature Gran # (Auto) 0.03 (0.01-0.20) K/uL Sodium 139 (136-145) mmol/L Potassium 3.8 (3.5-5.1) mmol/L Chloride 105 (98-107) mmol/L Carbon Dioxide 25 (21-32) mmol/L Anion Gap 9 (3-11) BUN 17 (6-23) mg/dl Creatinine 1.34 (0.6-1.4) mg/dl Est Cr Clr Drug Dosing 63.0 ml/min eGFR 54.56 BUN/Creatinine Ratio 12.7 (10-20) Glucose 105 H (70-99(Fasting)) mg/dl Calcium 9.2 (8.6-10.3) mg/dl Urine Color Yellow Urine Appearance Cloudy A (Clear) Urine pH 6.0 (4.5-7.5) Ur Specific Burns 1.020 (1.000-1.030) Urine Protein 2+ H (Negative) Urine Glucose (UA) Negative (Negative) Urine Ketones Negative (Negative) Urine Blood 2+ H (Negative) Urine Nitrite Negative (Negative) Urine Bilirubin Negative (Negative) Urine Urobilinogen Negative (Negative) Ur Leukocyte Esterase 3+ H (Negative) Urine WBC (Auto) >50 H (0-5) /hpf Urine RBC (Auto) >20 H (0-2) /hpf U Hyaline Cast (Auto) 6-10 H (0-2) /lpf U Epithel Cells (Auto) 0-2 (0-2) /hpf Urine Bacteria (Auto) None Seen (None Seen) Calcium Oxalate Crystal Present A (None Prsent) Urine Yeast Present A (None Prsent) Discharge Plan Visit Data Chief Complaint: Weakness Stated Complaint: Weakness ED Provider: Ilan Gramajo Discharge Problem: Complicated UTI (urinary tract infection), Chronic indwelling Devlin catheter Patient Disposition: Admitted As Inpatient Discharge Instructions Interventions: ED Discharge Assessment Last Done: 06/23/24 17:14
[2024-06-23 15:16] LABS: BUN Creatinine Ratio 12.7 (10-20); Calcium 9.2 mg/dl (8.6-10.3); Potassium 3.8 mmol/L (3.5-5.1)
[2024-06-23 15:17] LABS: Appearance Urine Cloudy (Clear); Bacteria Urine Automated None Seen (None Seen); Bilirubin Urine Negative (Negative); Blood Urine 2+ (Negative); Calcium Oxalate Crystals Urine Present (None Prsent); Color Urine Yellow; Epithelial Cell Urine Auto 0-2 /hpf (0-2); Glucose Urine UA Negative (Negative); Ketones Urine Negative (Negative); Leukocyte Esterase Urine 3+ (Negative); Nitrite Urine Negative (Negative); Protein Urine 2+ (Negative); RBC Urine Automated >20 /hpf (0-2); Urobilinogen Urine Negative (Negative); WBC Urine Automated >50 /hpf (0-5)
--- NOTE | 2024-06-23 15:50 | History & Physical Report ---
Date of Service June 23, 2024 Assessment & Plan (1) Mild cognitive impairment: (2) Chronic indwelling Devlin catheter: (3) Complicated UTI (urinary tract infection): (4) Elevated blood pressure reading: Plan This is a 78-year-old male with past medical history significant for adrenal insufficiency on chronic steroids, bronchial asthma/COPD, obstructive sleep apnea, history of DVT/PE s/p IVC filter no longer on anticoagulation due to bleeding issues, bladder cancer s/p surgery off of Keytruda secondary to development of myocarditis, prostate cancer s/p radiation therapy, valvular heart disease ,moderate aortic stenosis, mild aortic regurgitation, hypertension, orthostatic hypotension, chronic anemia, mild cognitive impairment and dementia, ambulatory dysfunction ambulates with a walker, urinary incontinence, currently on chronic Devlin, chronic venous insufficiency, CKD stage III who presented to ED from cardiology office due to concern for generalized decline from baseline and possible recurrence of urosepsis. Pt currently at [facility]. Plan was to be discharged this weekend due to insurance no longer covering stay. Per pt he is very weak and declining. Per centre care they have not noticed a significant change since his admission. At baseline he has mostly been in a wheel chair and significantly confused. Pt seen in Cardiology clinic today. Recent UA on 06/20 revealed Joanna and pt started oral fluconazole 100mg today. There is concern pt could have a recurrence of his bacteremia and in setting of adrenal insuff, valvular heart disease it was felt best to work patient up in hospital Recently Complicated UTI Recent Enterococcus bacteremia - completed 2 week course of IV ampicillin Metabolic Encephalopathy Generalized weakness admit to PCU empiric IV zosyn for now await urine and blood culture PT/OT urine culture from 06/20 grew joanna, likely colonization await urine culture pts case was discussed with primary staff occupational therapist Dr. Rubio as he was seen in clinic prior to arrival Elevated blood pressure reading Orthostatic hypotension BP has been fluctuating per centre care recently midodrine d/c because of this he does have known orthostasis and is on florinef, will check daily orthostatics PRN IV labetalol 5mg for SBP > 160 consider cardiology eval for bp management given complicated hx Other chronic conditions Adrenal insufficiency: recently seen by Larry Valdovinos, increase hydrocortisone to 30mg in a.m. 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 Dickerson, please see addendum I spent a total of 76 minutes reviewing notes, outpatient records, labs, medication, coordinating, documenting and providing care for this patient excluding time spent in the performance of separately billed services. History of Present Illness Chief Complaint: Generalized weakness x 3 days. Primary Care Provider: Deondre Hill MD This is a 78-year-old male with past medical history significant for adrenal insufficiency on chronic steroids, bronchial asthma/COPD, obstructive sleep apnea, history of DVT/PE s/p IVC filter no longer on anticoagulation due to bleeding issues, bladder cancer s/p surgery off of Keytruda secondary to development of myocarditis, prostate cancer s/p radiation therapy, valvular heart disease ,moderate aortic stenosis, mild aortic regurgitation, hypertension, orthostatic hypotension, chronic anemia, mild cognitive impairment and dementia, ambulatory dysfunction ambulates with a walker, urinary incontinence, currently on chronic Devlin, chronic venous insufficiency, CKD stage III who presented to ED from cardiology office due to concern for generalized decline from baseline and possible recurrence of urosepsis. He feels very weak. He denies any f/c/s, chest pain, sob, n/v/d, abd pain. His appetite has been up and down. He feels very confused and doesn't understand where he is at. His last BM was 1 day ago. Pt reports 3 weeks ago he passed out and fell on his back on his way to the dentist office. He is still having some back pain. He is very worried with what we are going to do with him not knowing where he is. Of significance patient was recently hospitalized 05/31 to 06/09 secondary to urosepsis, complicated UTI and Enterococcus facialis bacteremia. He was seen by infectious disease who recommended a 2-week course of ampicillin. he was to be discharged from rehab tomorrow. He presented to cardiology clinic today with his . There is ongoing concern over patient becoming increasingly more weak than baseline. He was requiring significant assistance with ambulation and a wheelchair. A recent outpatient urine culture grew Joanna and he was started on course of fluconazole while at rehab. Also of note patient's weight is significantly increased from 203 pounds to 239 pounds over the course of his stay. It is uncertain the etiology of the weight gain. Per cardiology notes patient's most recent echocardiogram showed a normal LV systolic function with an EF of 60 to 65% however also noted that patient does have a significant mo derate to severe aortic stenosis. I did discuss with [facility] who felt pt had his best day today. At baseline he is very confused and this can be intermittent. Typically he requires assistance to a wheel chair but most has been staying in the wheel chair. Staff at [facility] have not noticed much difference physically from when he was admitted and they do not feel he has had a decline. Pt was to be discharged this weekend due to insurance and it was reported that has significant concern caring for pt at home. Allergies Allergy/AdvReac Type Severity Reaction Status Date / Time Iodinated Contrast Media Allergy Severe LOVERSOL---CARDIAC Verified 06/22/24 13:[address] CONTRAST clindamycin Allergy Intermediate Rash Verified 06/22/24 13:25 chocolate flavor AdvReac Severe DIARRHEA/ Verified 06/22/24 13:25 Cannot take, interacts w/ medications. cranberry AdvReac Severe Cannot Verified 06/22/24 13:25 take, interacts w/ medications. pembrolizumab [From Digistrive] AdvReac Intermediate myocarditis Verified 06/22/24 13:25 Home Medications Medication Instructions Recorded Confirmed Type sulfamethoxazole 800 1 tab PO UD 05/31/24 06/23/24 History mg-trimethoprim 160 mg tablet Senna-C 1 tab PO DAILY Constipation #30 06/08/24 06/23/24 Rx tabs acetaminophen 325 mg tablet 650 mg (2 x 325 mg) PO Q4H PRN 06/08/24 06/23/24 Rx fever or pain #30 tabs albuterol sulfate 90 mcg/actuation 2 puff inhalation Q4H PRN 06/08/24 06/23/24 Rx aerosol inhaler Shortness Of Breath Or Wheezing #16 grams ascorbic acid (vitamin C) 1,000 mg 1,000 mg PO DAILY #30 tabs 06/08/24 06/23/24 Rx tablet aspirin 81 mg tablet,delayed 81 mg PO DAILY #30 tabs 06/08/24 06/23/24 Rx release cholecalciferol (vitamin D3) 125 125 mcg PO DAILY #30 tabs 06/08/24 06/23/24 Rx mcg (5,000 unit) tablet (Vitamin D3) cyanocobalamin (vitamin B-12) 1,000 mcg PO DAILY #30 tabs 06/08/24 06/23/24 Rx 1,000 mcg tablet epinephrine 0.3 mg/0.3 mL 0.3 mg (0.3 mL) IM UD PRN 06/08/24 06/23/24 Rx injection, auto-injector Anaphylaxis #3 ea ferrous sulfate 325 mg (65 mg 325 mg PO DAILY #30 tabs 06/08/24 06/23/24 Rx iron) tablet,delayed release fludrocortisone 0.1 mg tablet 0.1 mg PO DAILY #30 tabs 06/08/24 06/23/24 Rx fluticasone fur. 200 mcg-umeclid 1 inh inhalation DAILY #1 ea 06/08/24 06/23/24 Rx 62.5 mcg-vilant 25 mcg inhalat.powder (Trelegy Ellipta) lidocaine 5 % topical patch 2 patch transdermal DAILY #20 ea 06/08/24 06/23/24 Rx magnesium chloride 64 mg 64 mg PO BID #60 tabs 06/08/24 06/23/24 Rx (magnesium chloride) tablet,delayed release memantine 10 mg tablet 10 mg PO BID #60 tabs 06/08/24 06/23/24 Rx multivitamin with minerals-folic 1 tab PO DAILY #30 tabs 06/08/24 06/23/24 Rx acid 200 mcg chewable tablet (Multivitamin Gummies) nystatin 100,000 unit/gram topical 1 applic EXT BID #30 grams 06/08/24 06/23/24 Rx powder (Nystop) omeprazole 20 mg capsule,delayed 20 mg PO DAILY #30 caps 06/08/24 06/23/24 Rx release solifenacin 5 mg tablet 5 mg PO DAILY #30 tabs 06/08/24 06/23/24 Rx hydrocortisone 10 mg tablet 20 mg PO 1500 06/23/24 06/23/24 History (Cortef) hydrocortisone 10 mg tablet 30 mg PO QAM 06/23/24 06/23/24 History (Cortef) Past Med/Surg History Problem List (Updated 06/23/24 @ 16:48 by Deb Ellison PA-C) Elevated blood pressure reading Complicated UTI (urinary tract infection) Chronic indwelling Devlin catheter Mild cognitive impairment Hx of prostatic malignancy ~ 2013- s/p Lupron and XRT Myocarditis Primary bladder malignant neoplasm Orthostatic hypotension Coagulopathy (Acute) Obstructive sleep apnea (Acute) Adrenal insufficiency (Acute 06/04/14) Bladder cancer (Acute) S/P IVC filter Stage 3 chronic kidney disease (Acute) History of pulmonary embolism hx "many years ago" unknown etiology History of DVT (deep vein thrombosis) hx "many years ago" unknown etiology acute on chronic DVT during 12/2022 [facility] admission- Coumadin d/c'ed due to anemia and hematuria; IVC filter placed 12/28/22 COPD (chronic obstructive pulmonary disease) (Chronic) well controlled. uses Breo daily with exercise Aortic stenosis Mild per 12/2022 ECHO -follows annually with cardiology Medical History Fracture of multiple teeth Sacral pressure sore Ambulatory dysfunction Generalized weakness Anemia Urethral stricture Ascending aorta dilation Mild- 4.4cm per 11/2022 ECHO Obesity Venous insufficiency (chronic) (peripheral) Radiation cystitis Kidney stones x1 episode. no surgery needed. Cardiac arrest hx r/t IV Contrast Dye "many years ago" Allergic rhinitis Contrast media allergy Hiatal hernia Surgical History S/P cataract extraction History of right cataract extraction History of colonoscopy H/O sinus surgery History of appendectomy S/P TURP (status post transurethral resection of prostate) Status post cystoscopy (11/07/13) Family History Father Prostate cancer Brother Prostate cancer Mother Thyroid cancer Cancer Other No family history of adverse response to anesthesia Social History Smoking Status: Never smoker Tobacco Type: Cigarettes Second Hand Exposure: No; Do You Dip or Chew Tobacco: No; Hx Alcohol Use: No Hx Substance Use: No Preferred Language: Hebrew Communication Ability: Impaired Visual Impairment: Limited Hearing Ability: Normal Parking Inspector Required: No Beliefs That Will Affect Care: None marital status: Current Living Situation: Spouse Current Living Situation Comment: at home with current occupational status: retired How many Children do You have: 0 Feels Safe at Home: Yes Diet: regular during the past year weight has: decreased > 10 lbs Seatbelt Use: always Do you think of yourself as: straight/heterosexual Gender Identity: Male Assistive Devices: Bedside Commode, Hospital Bed and Walker Review of Systems Review of Systems: All systems reviewed & are unremarkable except as noted in HPI & below Physical Exam Physical Exam: please refer to Dr. Dickerson addendum for physical exam findings. Results & Data Results & Data Vital Signs (Past 12 Hours) Vital Signs Temp Pulse Pulse Resp BP BP Pulse Ox 06/23/24 15:30 81 18 192/92 H 98 06/23/24 14:30 80 18 177/99 H 98 06/23/24 13:46 79 06/23/24 13:31 100 06/23/24 13:31 36.8 C 85 20 175/97 H 100 O2 Del Method 06/23/24 15:30 Room Air 06/23/24 14:30 Room Air 06/23/24 13:46 06/23/24 13:31 Room Air 06/23/24 13:31 Room Air Laboratory Results I have independently reviewed and interpreted patient's admitting labs including CBC, CMP, UA ECG Additional Comments: I have independently reviewed and interpreted patient's admitting EKG which revealed: NSR, 83bpm COVID-19 Results Results COVID-19 Adm Lab Results: RBC 4.17 M/uL (4.70-6.10) L 06/23/24 WBC 8.77 K/ul (4.8-10.8) 06/23/24 Hgb 12.0 g/dl (14.0-18.0) L 06/23/24 Hct 37.0 % (42.0-52.0) L 06/23/24 Plt Count 307 K/uL (130-400) 06/23/24 Neutrophils (%) (Auto) 71.1 % 06/23/24 Lymphocytes (%) (Auto) 19.8 % 06/23/24 Monocytes # (Auto) 0.62 K/uL (0.11-0.59) H 06/23/24 Eosinophils # (Auto) 0.12 K/uL (0.00-0.50) 06/23/24 Immature Granulocyte % (Auto) 0.3 % 06/23/24 Neutrophils # (Auto) 6.23 K/uL (1.40-6.50) 06/23/24 Lymphocytes # (Auto) 1.74 K/uL (1.20-3.40) 06/23/24 Monocytes # (Auto) 0.62 K/uL (0.11-0.59) H 06/23/24 Eosinophils # (Auto) 0.12 K/uL (0.00-0.50) 06/23/24 Basophils # (Auto) 0.03 K/uL (0.00-0.20) 06/23/24 Immature Granulocyte # (Auto) 0.03 K/uL (0.01-0.20) 4 Na 139 mmol/L (136-145) 06/23/24 K 3.8 mmol/L (3.5-5.1) 06/23/24 Cl 105 mmol/L (98-107) 06/23/24 CO2 25 mmol/L (21-32) 06/23/24 Anion Gap 9 (3-11) 06/23/24 BUN 17 mg/dl (6-23) 06/23/24 Creatinine 1.34 mg/dl (0.6-1.4) 06/23/24 BUN/Creatinine Ratio 12.7 (10-20) 06/23/24 Glucose Level 105 mg/dl (70-99(Fasting)) H 06/23/24 Ca 9.2 mg/dl (8.6-10.3) 06/23/24 Code Status & VTE Plan Code Status FULL code VTE Prophylaxis Plan VTE Prophylaxis will be ordered: Yes Supervising Physician Co-Signing Physician Notes 78 yo M w/ PMH of adrenal insufficiency on chronic steroid, bronchial asthma/copd, ANDRZEJ, DVT/PE s/p IVC filter no longer on anticoagulation due to bleeding issues, bladder cancer s/p Sx /off of Keytruda 2/2 development of myocarditis, prostate Ca s/p radiation therapy, HTN, orthostatic hypotension/currently off of midodrine, chronic anemia, mild cognitive impairme nt and dementia, ambulatory dysfunction/uses walker, urinary incontinence on Devlin, chronic venous insufficiency, CKD III was referred from cardio office due to concerns of progressive weakness/ro infection. Pt seen at bedside, has dementia, hx not reliable, but denies headache/nausea/vomiting/chest pain/palpitation/belly pain/sob/sore throat/cough. Pt reports having weakness, occasional dizziness, appetite being up and down. Pt has been weak and declining at rehab. CBC and CMP fairly wnl. UA s/o uti. f/u urine and blood cx. Active problems: Metabolic encephalopathy likely 2/2 possible UTI: pt appears confused on exam, UA s/o uti, will treat w/ zosyn, add probiotic. f/u on c/s of blood and urine. HTN urgency: likely 2/2 acute illness. ho orthostatic hypotension - midodrine was stopped recent past. add prn iv labetalol 10 mg iv q6h prn and iv hydralzine 10 mg iv q6h prn for SBP > 165 mmHg. On exam: GENERAL: Oriented x2 but is confused. NAD, on RA. HEENT: No pallor, no icterus. Pupils equal, round and reactive to light. dry mucosa moist. NECK: No JVD, no neck masses. HEART: S1 and S2 heard. Regular rate and rhythm. No murmur, no gallop. RESPIRATORY SYSTEM: Normal AP diameter. No accessory muscle use. No wheezing, no crackles. ABDOMEN: Soft, bowel sounds present, nontender, no distention. CENTRAL NERVOUS SYSTEM: No facial droop. Speech is clear. Obeys simple commands. Moves extremities. EXTREMITIES: 1+ ble edema, ble chronic skin changes, no erythema seen. Urine catheter w/ darker urine collection noted. I have seen and examined the patient and have discussed the case with the provider above. I agree with the assessment and plan as stated. Time spent: 35 min
[2024-06-23] MEDS ORDERED: ONDANSETRON INJ 2 MG/ML 2 ML VIAL IV PRN (18:12)
[2024-06-23] MEDS ORDERED: ALBUTEROL HFA 8 GM INHALER INH PRN (18:12)
[2024-06-23] MEDS ORDERED: FAMOTIDINE 20 MG TAB PO PRN (18:12)
[2024-06-23] MEDS ORDERED: ACETAMINOPHEN 325 MG TAB PO PRN (18:12)
[2024-06-23] MEDS ORDERED: ALUMINUM/MAGNESIUM SUSP 30 ML UDC PO PRN (18:12)
[2024-06-23] MEDS ORDERED: LABETALOL HCL IV 5 MG/ML 20ML IV PRN (18:12)
[2024-06-23] MEDS: 4.5GM X1 IV STA (20:55)
[2024-06-23] MEDS: ENOXAPARIN INJ 40 MG/0.4 ML SYR SQ SCH (20:55)
[2024-06-23] MEDS: MAGNESIUM CHLORIDE W/CALCIUM 64MG DELAYED REL TAB PO SCH (20:56)
[2024-06-23] MEDS: MEMANTINE HCL 10 MG TAB PO SCH (20:56)
[2024-06-23] MEDS: NYSTATIN POWDER 15GM BTL EXT SCH (20:56)
[2024-06-23] MEDS: LACTATED RINGER'S 1,000 ML IV SCH (21:04)
[2024-06-23] MEDS: LABETALOL HCL IV 5 MG/ML 20ML IV STA (21:47)
[2024-06-24] MEDS: PIPERACILLIN/TAZOBACTAM 4.5 GM/100 ML BAG IV SCH (00:31)
[2024-06-24] MEDS: ACETAMINOPHEN 325 MG TAB PO PRN (00:31)
--- OUTSIDE RECORDS SUMMARY | 2024-06-24 04:02 | External Medical Summary | Summary of Care ---
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 Janitorial Maintenance Worker Name Role Phone Chuy Batista MD Primary Care Provider [phone]- [phone] Reason for Visit * Reason Comments Follow Up Encounter Details Date Type Department Care Team (Late st Contact Info) Description 06/23/2024 11:00 AM EST Office Visit Cardiology, [facility] [address] [place] [address] Zak Rubio, [address] [place] [id number] Other chronic myocarditis (HCC)*; Aortic valve stenosis, etiology of cardiac valve disease unspecified; Orthostatic hypotension; Complicated UTI (urinary tract infection) Allergies Active Allergy Reactions Criticality Noted Date Comments Chocolate Diarrhea 05/14/2023 Chocolate Flavor High 10/09/2023 Other Reaction(s): DIARRHEA/ Cannot take, interacts w/ medications. Clindamycin Hcl 09/24/2005 rash Cranberry 10/20/2023 Iodinated Contrast Media 10/01/2015 Ioversol Other (Please comment) High 08/10/[address] IV DYE Pembrolizumab High 10/10/2023 Other Reaction(s): myocarditis documented as of this encounter (statuses as of 06/23/2024) Medications Syringe/Needle , Disp, 25G X 1-1/2" 3 ML MISC To use with injection of hydrocortisone if needed 2 Each 5 016 Active Additional Information Patient not taking.Reported on 06/23/2024 Breo Ellipta 200-25 MCG/ACT Inhalation Aerosol Powder Breath Activated (fluticasone furoate-vilant emily) INHALE 1 PUFF BY MOUTH EVERY DAY 180 Each 3 024 Active Fluticasone Propionate 50 MCG/ACT Nasal Suspension (Flonase) SPRAY 2 SPRAYS INTO EACH NOSTRIL IN THE MORNING 16 mL 3 023 Active Trelegy Ellipta 200-62.5-25 MCG/ACT Aerosol Powder Breath Activated (Fluticasone-U meclidinium-Vi lanterol) Inhale 1 Puff by mouth every evening. 60 Blister Dosing Unit 11 023 Active EpiPen 2-Pedro 0.3 MG/0.3ML Injection Solution Auto-injectorI ndications:Janene phylaxis, sequela USE DIRECTED 1 Each Active Additional Information Patient not taking.Reported on 06/23/2024 Multi Adult Gummies Oral Tablet Chewable Take by mouth. Activ e Vitamin D 125 MCG (5000 UT) Oral Capsule Take by mouth. Ac tive Iron 325 (65 Fe) MG Oral Tablet [...] Omeprazole 20 MG Oral Capsule Delayed Release (PriLOSEC)Denice cations:Gastro esophageal reflux disease, unspecified whether esophagitis present Take 1 Capsule by mouth in the morning. 90 Capsule 1 024 Active [facility] Wound/Burn Dressing External GelIndications :Pressure injury of sacral region, stage 2 (HCC) Apply topically to affected area daily. Apply to pressure ulcer of buttocks. 88 mL 3 024 Active predniSONE 20 MG Oral Tablet (Deltasone)Ind ications:Uroth elial carcinoma of bladder (HCC),Other acute myocarditis TAKE 4 TABLETS BY MOUTH EVERY MORNING WITH FOOD 120 Tablet 1 024 Active Additional Information Patient not taking.Reported on 06/23/2024 ProAir HFA 108 (90 Base) MCG/ACT Inhalation [...] the rectum as needed for Constipation. Active Fludrocortison e Acetate 50 MCG OR TABS Take 1 Tablet by mouth in the morning. Active Melatonin 3 MG Oral Capsule Take 1 Capsule by mouth at bedtime as needed. Active Magnesium Chloride 64 MG Oral Tablet Take by mouth. Act anthony Sertraline HCl 25 MG Oral Tablet (Zoloft) Take 1 Tablet by mouth at bedtime. Active Gummies 0.18-25 MG Oral Tablet Chewable Take by mouth. Activ e Magnesium Hydroxide 400 MG/5ML Oral Suspension (Milk of Magnesia) Take 30 mL by mouth as needed for Constipation. Active Memantine HCl 5 MG Oral Tablet (Namenda)Indic ations:MCI (mild cognitive impairment) 5 mg once a day for a week and then 5 mg twice a day 60 Tablet 2 Active Solifenacin Succinate 5 MG Oral Tablet (VESIcare) Take 1 Tablet by mouth in the morning. 30 Tablet 6 Active Fludrocortison e Acetate 0.1 MG Oral Tablet (Florinef) Take 1 Tablet by mouth in the morning. 30 Tablet Active Sulfamethoxazo le-Trimethopri m 800-160 MG Oral Tablet (Bactrim DS)Indications :Urothelial carcinoma of bladder (HCC),Other acute myocarditis 1 tablet 3 days a week ( Wednesday, Wednesday, Wednesday). 36 Tablet Active Ampicillin 500 MG Oral Capsule Take 1 Capsule by mouth in the morning and 1 Capsule at noon and 1 Capsule in the evening and 1 Capsule before bedtime. 28 Capsule Active Additional Information Patient not taking.Reported on 06/23/2024 Hydrocortisone 10 MG Oral Tablet (Cortef) TAKE 2 TABLETS BY MOUTH EVERY MORNING AND 1 TABLET IN THE AFTERNOON Active Magnesium Cl-Calcium Carbonate 71.5-119 MG Oral Tablet Delayed Release Take 64 mg by mouth in the morning and 64 mg before bedtime. Active Midodrine HCl 5 MG Oral Tablet (Proamatine)In dications:Orth ostatic hypotension Take 1 Tablet by mouth 3 times a day. Take at 8 am, noon, 4 pm 270 Tablet 3 024 2023 Discontinued documented as of this encounter (statuses as of 06/23/2024) Active Problems Problem Noted Date Diagnosed Date [...] 09/03/2022 Personal history of radiation therapy 01/02/2022 Overview (01/02/2022): treatment for prostate cancer Chronic kidney disease, stage 3b 01/28/2021 Overview: Per CKD protocol Benign hypertension with stage 3b chronic kidney disease 12/24/2020 Overview: Per CKD protocol Mild cognitive impairment 08/29/2020 Aortic valve stenosis 08/29/2020 Hx of nonmelanoma skin cancer 03/27/2019 Overview (03/27/2019): basal cell carcinoma (L [place] galaviz /18) ANDRZEJ (obstructive sleep apnea) 08/19/2018 Prostate cancer 06/29/2017 Moderate persistent asthma without complication 04/13/2017 Chronic anticoagulation 04/13/2017 Adrenal insufficiency 04/23/2015 Chronic steroid use 02/21/2015 HTN (hypertension) 10/16/2014 History of DVT in adulthood 08/20/2014 History of pulmonary embolism 04/16/2014 Deviated nasal septum 02/03/2006 ANGIOEDEMA 02/25/2005 documented as of this encounter (statuses as of 06/23/2024) Resolved Problems Problem Noted Date Diagnosed Date [...] 02/03/2006 017 ADVANCE DIRECTIVE INFORMATION 09/03/2005 04/13/2017 Overview (09/03/2005): No, Advance Directive brochure given to patient. RHINITIS, NONALLERGIC 05/27/20052017 HTN, goal to be determined 02/25/2005 0 10/16/2014 URTICARIA UNSPECIFIED 02/25/20052016 Asthma with severity to be determined 02/25/2005 04/13/2017 Overview (11/25/2015): ICD-10 update of inactive term Chronic sinusitis 04/13/2017 Allergic rhinitis 04/13/2017 Chronic rhinitis 12/28/2017 Deviated nasal septum 2016 documented as of this encounter (statuses as of 06/23/2024) Immunizations Name Administration Dates Next Due COVID-19 mRNA, LNP-s, No Pre serve, 2-Dose Series (Blinkbuggy) 05/30/2021,10/29/2020,10/08/2020 COVID-19, LNP-s, No Preserve , Prosper-sucrose, [...] Assigned at Male 01/31/2019 8:25 AM EDT Legal Sex Male 6:20 AM EST Gender Identity Male 01/31/2019 8:25 AM EDT Sexual Orientation Straight 12/27/2023 10 :34 AM EDT documented as of this encounter Last Filed Vital Signs Vital Sign Reading Time Taken Comments Blood Pressure 128/82 06/23/2024 11:21 AM EST Pulse 80 06/23/2024 11:21 AM EST Temperature - - Respiratory Rate - - Oxygen Saturation 99% 06/23/2024 11:21 AM EST Inhaled Oxygen Concentration - - Weight 108.4 kg (239 lb) 06/23/2024 11:21 AM EST Height - - Body Mass Index 29.87 04/21/2024 2:22 PM EDT documented in this encounter Functional Status * Are you deaf or do you have serious difficulty hearing? Answer Date of Assessment Author No 09/12/2023 12:39 AM Elizabeth Marquez RN * Are you blind or do you have serious difficulty seeing, even when wearing glasses? Answer Date of Assessment Author No 09/12/2023 12:39 AM Elizabeth Marquez RN * Do you have serious difficulty walking or climbing stairs? (5 years old or older) Answer Date of Assessment Author Yes 09/12/2023 12:39 AM Elizabeth Marquez RN * Do you have difficulty dressing or bathing? (5 years old or older) Answer Date of Assessment Author No 09/12/2023 12:39 AM Elizabeth Marquez RN * Because of a physical, mental, or emotional condition, do you have difficulty doing errands alone such as visiting a doctors office or shopping? (15 years old or older) Answer Date of Assessment Author Yes 09/12/2023 12:39 AM Elizabeth Marquez RN documented as of this encounter Mental Status * Because of a physical, mental, or emotional condition, do you have serious difficulty concentrating, remembering, or making decisions? 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 The patient had been at the [facility] center for approximately two weeks, following a nine-day hospital stay. He presents today accompanied by his spouse as per his usual routine. During the hospitalization, the patient was diagnosed with sepsis secondary to a UTI caused by Enterococcus. The patient was discharged with a plan to complete a two-week course of IV antibiotics viaa PICC line, which was completed at the [facility]. The patient's condition has deteriorated over the past few days, with symptoms of generalized malaise and weakness. The patient reports feeling dizzy and weak, and has been unable to participate in physical therapy due to these symptoms. The patient's mobility has significantly declined compared tohis baseline prior to the hospitalization, with the patient now requiring a wheelchair and expressing difficulty with walking. The patient's weight has also significantly increased, from 203 pounds to 239 pounds, over the course of his stay at the [facility]. It is unclear whether this weight gain is due to fluid retention or other factors. The patient reports some shortness of breath, particularly upon exertion, and swelling in the right foot and ankle, a chronic issue. The patient was previously on midodrine for orthostatic hypotension, but this was discontinued during the hospital stay due to high blood pressure. The patient remains off midodrine, with stable blood pressure. The patient's steroid medication was also switched from prednisone back to hydrocortisone, which he had been on chronically prior to the myocarditis diagnosis. The patient's most recent echocardiogram showed normal left ventricular systolic function, with an ejection fraction of 60-65%. However, the patient was also diagnosed with moderate to severe aortic stenosis. The patient's underlying cancer and infection situations remain ongoing concerns. As previously noted the patient has a history of past prostate carcinoma and now bladder carcinoma for which he underwent Transurethral resection of bladder tumor and received his first dose of Keytruda on 07/26/2023 and the second dose in August,. Shortly thereafter he was admitted due to shortness of breath with noted finding of an elevation in the high sensitivity troponin. [facility] performed August, was consistent with myocarditis with normal ejection fraction. He was initially treated with high- dose IV methylprednisolone and transitioned to high-dose prednisone, initially 100 milligrams daily on a tapering dose. It was noted that he had a previous longstanding history of adrenal insufficiency and he had been on baseline corticosteroid therapy before his recent diagnosis of myocarditis. Cardiac Problems: History of Keytruda related myocarditis Orthostatic hypotension Extensive ROS: All systems reviewed & are unremarkable except as noted in HPI & below Cardiovascular (chest pain/palpitations/fluttering/diaphoresis/dyspnea on exertion/paroxysmally nocturnal dyspnea):Negative Review of patient's allergies indicates: Allergen Reactions Chocolate Flavor Other Reaction(s): DIARRHEA/ Cannot take, interacts w/ medications. Ioversol Other (Please comment) CARDIAC ARREST CT IV DYE Pembrolizumab Other Reaction(s): myocarditis Chocolate Diarrhea Clindamycin [Clindamycin Hcl] rash Cranberry Iodinated Contrast Media Current Outpatient Medications Medication Sig Dispense Refill Breo Ellipta 200-25 MCG/ACT Inhalation Aerosol Powder Breath Activated (fluticasone furoate-vilanterol) INHALE 1 PUFF BY MOUTH EVERY DAY 180 Each 3 Fluticasone Propionate 50 MCG/ACT Nasal Suspension (Flonase) SPRAY 2 SPRAYS INTO EACH NOSTRIL IN THE MORNING 16 mL 3 Trelegy Ellipta 200-62.5-25 MCG/ACT Aerosol Powder Breath Activated (Ribkxnltkiv-Ypzolihtoqbz-Bxeusaigth) Inhale 1 Puff by mouth every evening. 60 Blister Dosing Unit 11 Multi Adult Gummies Oral Tablet Chewable Take [...] by mouth in the morning. 90Capsule 1 [facility] Wound/Burn Dressing External Gel Apply topically to affected area daily. Apply to pressure ulcer of buttocks. 88 mL 3 ProAir HFA 108 (90 Base) MCG/ACT Inhalation [...] 64 MG Oral Tablet Take by mouth. Gummies 0.18-25 MG Oral Tablet Chewable Take [...] mouth in the morning. 30 Tablet 11 Sulfamethoxazole-Trimethoprim 800-160 MG Oral Tablet (Bactrim DS) 1 tablet 3 days a week ( Wednesday, Wednesday, Wednesday). 36 Tablet 0 Hydrocortisone 10 MG Oral Tablet (Cortef) TAKE 2 TABLETS BY MOUTH EVERY MORNING AND 1 TABLET IN THEAFTERNOON Magnesium Cl-Calcium Carbonate 71.5-119 MG Oral Tablet Delayed Release Take 64 mg by mouth in the morning and 64 mg before bedtime. Syringe/Needle, Disp, 25G X 1-1/2" 3 ML MISC To use with injection of hydrocortisone if needed (Patient not taking: Reported on 06/23/2024) 2 Each 5 EpiPen 2-Pedro 0.3 MG/0.3ML Injection Solution Auto-injector USE DIRECTED (Patient not taking: Reported on 06/23/2024) 1 Each 0 predniSONE 20 MG Oral Tablet (Deltasone) TAKE 4 TABLETS BY MOUTH EVERY MORNING WITH FOOD (Patient not taking: Reported on 06/23/2024) 120 Tablet 1 Melatonin 3 MG Oral Capsule Take 1 Capsule by mouth at bedtime as needed. (Patient not taking: Reported on 06/23/2024) Sertraline HCl 25 MG Oral Tablet (Zoloft) Take 1 Tablet by mouth at bedtime. (Patient not taking: Reported on 06/23/2024) Ampicillin 500 MG Oral Capsule Take 1 Capsule by mouth in the morning and 1 Capsule at noon and 1 Capsule in the evening and 1 Capsule before bedtime. (Patient not taking: Reported on 06/23/2024) 28 Capsule 0 No current facility-administered medications for this visit. OBJECTIVE/PHYSICAL EXAMINATION: BP 128/82 | Pulse 80 | Wt 108.4 kg (239 lb) | SpO2 99% | BMI 29.87 kg/m | BSA 2.4 m Temp 98.5 D F General: no acute distress and stated age Eyes: conjunctiva are pink and non-injected, sclera clear Neck: normal jugular venous pulse, no hepatojugular reflux Chest: normal shape and normal respiratory effort Lungs: clear to auscultation , no rales rhonchi or wheezing Cardiac Exam: - regular heart sounds, 2/6 systolic murmur Abdomen: abdomen soft, non-tender, no abnormal masses and no hepatosplenomegaly Musculoskeletal: no gait disturbance, no weakness Extremities: Right lower extremity chronic venous stasis change Devlin catheter in place with regino cloudy urine, no gross hematuria Neuro: grossly normal exam Psych: appropriate affect and insight. Data: Results LABS Urinalysis: Suggestive of ongoing or recurrent infection (06/20/2024) Urine culture: Sylvia albicans (06/20/2024) Blood cultures: Enterococcus faecalis (05/31/2024) DIAGNOSTIC Echocardiogram: Normal left ventricular systolic function, ejection fraction 60- 65% (05/23/2024) Echocardiogram: Moderate to severe aortic stenosis (05/23/2024) Transthoracic echocardiogram performed 05/23/2024 at [facility]: LVEF normal at 60- 65% with normal LV wall motion Mild concentric left ventricular hypertrophy Ljmckgax-mp-amzkny aortic stenosis with peak CW velocity of 3.8 meters/second Mild mitral regurgitation No evidence of valvular vegetation within the limitations of the transthoracic imaging study compared to the previous study performed in September, the aortic valve gradients have increased Assessment & Plan Complicated Urinary Tract Infection (UTI) Recurrent UTI with Enterococcus faecalis initially treated with IV ampicillin. Symptoms of malaise and weakness have returned. Urinalysis suggests ongoing infection; urine culture yielded Sylvia albicans. Risks include progression to sepsis; benefits of inpatient care include targeted treatment and monitoring. - Refer to emergency department at [facility] for further treatment and anticipated inpatient care - Perform repeat urinalysis and urine culture Adrenal Insufficiency Chronic adrenal insufficiency managed with hydrocortisone. Endocrinology plans to increase hydrocortisone dose. Risks include adrenal crisis if not managed; benefits include better symptom control. 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 Recent echocardiogram showed normal left ventricular systolic function (EF 60-65%). Risks include heart failure and arrhythmias; benefits of current steroid regimen include reduced inflammation and symptom control. - Continue current steroid regimen - Monitor cardiac function Aortic Valve Stenosis Moderate to severe aortic stenosis noted on echocardiogram. Symptoms difficult to assess due to other illnesses. Risks include heart failure and sudden cardiac ; benefits of optimizing treatmentfor other illnesses include better overall health and potential for future valvular intervention. - Optimize treatment for other illnesses before further workup for valvular heart disease Orthostatic Hypotension Previously on fludrocortisone and midodrine. Midodrine discontinued due to hypertension. Blood pressure currently well-managed. Risks include falls and syncope; benefits of continuing fludrocortisoneinclude improved blood pressure stability. - Continue fludrocortisone - Monitor blood pressure Generalized Weakness and Instability Generalized weakness and instability, particularly when standing. Not suitable for discharge from residential. Risks of discharge include falls and inability to perform daily activities; benefits ofextended stay include further therapy and stabilization. - Extend stay at residential for further therapy - Evaluate for potential readmission to hospital if condition worsens Follow-up - Coordinate with Doctor Norton for further care - Refer to emergency department at [facility] for further treatment. I spent a total of Greater than 55 mins (exact time 65 mins) on the date of service in preparation,delivery, and documentation of the care provided to Branden High excluding any time spent in the performance of separately billed services or time spent by another provider/QHP. -patient is seen in longitudinal follow-up of the above complex issues with the assessment and damian noted Follow up : Follow Up: Return in about 3 months (around 09/23/2024) for Clinic Visit. | For: Clinic Visit Zak Rubio DO [facility] [address] [facility] [address] Text in this note was generated using an [employer] documentation service. I discussed the use of a device to record and summarize our discussion today. All persons present during the encounter consented to its use. documented in this encounter Nursing Notes * Margarita Bruce CMA - 06/23/2024 11:20 AM EST Examination Room: 10 Name: Branden High Date of : (1945) Reason for Visit: f/u Interim Hospitalization(s): Problems/Concerns: Very weak/ hard time walking Chest Pain/SOB: denied chest pain, does have SOB [facility] is a way you can talk to your provider online through e-mail. Would you like to sign up? I can activate it for you? DECLINES Patient was instructed to not get up on the exam table until directed and assisted by their provider; patient is to remain seated in the chair/ wheelchair/ exam table for fall prevention and safety reasons. Patient is aware to have assistance to step down off exam table with personnel. Patient voiced full comprehension of instructions. documented in this encounter Plan of Treatment Upcoming Encounters Date Type Department Care Team (Late st Contact Info) Description 06/27/2024 10:00 AM EST Office Visit Urology, [facility] [address] [facility] [place] [address] Valdemar Prado MD [address] [place] [address] 06/27/2024 2:00 PM EST Office Visit [facility] [address] [place] [id number] Chuy Batista MD [address] [place] [address] 06/28/2024 2:30 PM EST Office Visit Otolaryngology [facility] [address] [place] [address] Dioni Jean-Baptiste DO [address] [place] [address] 07/25/2024 2:45 PM EST Office Visit Hematology/Oncology [place], [place] [address] [facility] [place], [place] [id number] Xavi Gramajo MD [address] [facility] [place] [address] 08/28/2024 3:00 PM EST Office Visit [facility] [place] [address] [place] [address] Chuy Batista MD [address] [place] [address] 09/04/2024 1:00 PM EST Procedure Only Urology, [place] [address], [place] [id number] Ernesto Villareal MD [address], [place] [id number] 09/14/2024 1:00 PM EST Cardiac Studies Cardiac Studies, [facility] [address] [place] [address] 10/13/2024 11:20 AM EST Office Visit Neurology [facility] [address] [facility] [place], [place] [address] Ellie Duncan MD [address] [facility] [place] [address] Health Maintenance Due Date Last Done Comments Albumin/Creatinine Ratio 1963 DTap/Tdap Vaccines (1 - Tdap) 1964 Adult Wellness Visit 02/01/2020 01/31/2019 COVID-19 Vaccine ( season) 2024 07/22/2022, 07/22/2022, 02/11/2022, Additional history exists CKD PHOS USE SMARTSET 58418 09/11/202408/17, 09/11/2023, 07/14/2021, Additional history exists GFR 10/13/2024 04/12/2024, 10/15, 11/03/2023, Additional history exists Depression Screening 12/26/2024 12/27/2023 CKD HGB USE SMARTSET 94853 04/12/202504/12, 04/12/2024, 12/13/2023, Additional history exists Pneumococcal [...] as of this encounter Visit Diagnoses Diagnosis Other chronic myocarditis (HCC)- Primary Aortic valve stenosis, etiology of cardiac valve disease unspecified Orthostatic hypotension Complicated UTI (urinary tract infection) Urinary tract infection, site not specified documented in this encounter Advance Directives * [...] Power of Attor philipp? No Care Teams Janitorial Maintenance Worker Relationship Specialty Start Date End Date Chuy Batista MD [address] [place] [address] PCP - General Family Medicine 05/31/24 documented as of this encounter
--- OUTSIDE RECORDS SUMMARY | 2024-06-24 04:02 | External Medical Summary | Summary of Care ---
Author Name Unknown Organization [facility] Address [address] [facility] [place] [address] Phone [phone] Care Team Providers Care Automated Teller Manager Name Role Phone Chuy Batista MD Primary Care Provider [phone]- [phone] Reason for Visit * Reason Comments Follow Up Encounter Details Date Type Department Care Team (Late st Contact Info) Description 06/23/2024 11:00 AM EST Office Visit Cardiology, [facility] [address] [place] [address] Zak Rubio, [address] [place] [id number] Other chronic myocarditis (HCC)*; Aortic valve stenosis, [...] the morning. 90 Capsule 1 024 Active [facility] Wound/Burn Dressing External GelIndications :Pressure injury of [...] mRNA, LNP-s, No Pre serve, 2-Dose Series (i-Neumaticos) 05/30/2021,10/29/2020,10/08/2020 COVID-19, LNP-s, No Preserve , Prosper-sucrose, [...] and orthostatic hypotension, was admitted to a [facility] following a hospitalization due to a fall at home, which was later attributed to sepsis from a urinary tract infection (UTI). The patient had been at the [facility] for approximately two weeks, following a nine-day hospital stay. He presents today accompanied by his spouse as per his usual routine. During the hospitalization, the patient was diagnosed with sepsis secondary to a UTI caused by Enterococcus. The patient was discharged with a plan to complete a two-week course of IV antibiotics viaa PICC line, which was completed at the [facility]. The patient's condition has deteriorated over the [...] the course of his stay at the [facility]. It is unclear whether this weight gain [...] the high sensitivity troponin. [facility] August, was consistent with myocarditis with [...] Ellipta 200-62.5-25 MCG/ACT Aerosol Powder Breath Activated (Onsoooenxmd-Scriwndygced-Oagplbimny) Inhale 1 Puff by mouth every evening. [...] by mouth in the morning. 90Capsule 1 [facility] Wound/Burn Dressing External Gel Apply topically to [...] stenosis (05/23/2024) Transthoracic echocardiogram performed 05/23/2024 at [facility]: LVEF normal at 60- 65% with normal LV wall motion Mild concentric left ventricular hypertrophy Nubifxux-hq-ogznfr aortic stenosis with peak CW velocity of [...] monitoring. - Refer to emergency department at [facility] for further treatment and anticipated inpatient care [...] when standing. Not suitable for discharge from senior care. Risks of discharge include falls and inability to perform daily activities; benefits ofextended stay include further therapy and stabilization. - Extend stay at senior care for further therapy - Evaluate for potential readmission to hospital if condition worsens Follow-up - Coordinate with Doctor Norton for further care - Refer to emergency department at [facility] for further treatment. I spent a total [...] For: Clinic Visit Zak Rubio DO [facility] [address] [facility] [id number] Text in this note was generated using an PowerPractical documentation service. I discussed the use of [...] 06/27/2024 10:00 AM EST Office Visit Urology, [facility] [address] [facility] [place] [address] Valdemar Prado MD [address] [place] [address] 06/27/2024 2:00 PM EST Office Visit [facility] [address] [place] [address] Chuy Batista MD [address] [place] [address] 06/28/2024 2:30 PM EST Office Visit Otolaryngology [facility] [address] [place] [address] Dioni Jean-Baptiste DO [address] [place] [address] 07/25/2024 2:45 PM EST Office Visit Hematology/Oncology [place] [place] [address] [facility] [place], [place] [phone] Xavi Gramajo MD [address] [place] [place] [address] 08/28/2024 3:00 PM EST Office Visit [facility] [address] [place] [address] Chuy Batista MD [address] [place] [address] 09/04/2024 1:00 PM EST Procedure Only Urology, [place] [address], [place] [id number] Ernesto Villareal MD [address], [place] [id number] 09/14/2024 1:00 PM EST Cardiac Studies Cardiac Studies, [facility] [address] [place] [address] 10/13/2024 11:20 AM EST Office Visit Neurology [facility] [address] [facility] [place], [place] [address] Ellie Duncan MD [address] [facility] [place] [address] Health Maintenance Due Date Last Done Comments Albumin/Creatinine Ratio 1963 DTap/Tdap Vaccines (1 - Tdap) 1964 Adult Wellness Visit 02/01/2020 01/31/2019 COVID-19 Vaccine ( season) 2024 07/22/2022, 07/22/2022, 02/11/2022, Additional history exists CKD PHOS USE SMARTSET 40884 09/11/202408/17, 09/11/2023, 07/14/2021, Additional history exists GFR 10/13/2024 04/12/2024, 10/15, 11/03/2023, Additional history exists Depression Screening 12/26/2024 12/27/2023 CKD HGB USE SMARTSET 64118 04/12/202504/12, 04/12/2024, 12/13/2023, Additional history exists Pneumococcal [...] Power of Attor philipp? No Care Teams Automated Teller Manager Relationship Specialty Start Date End Date Chuy Batista MD [address] [place] [address] PCP - General Family Medicine 05/31/24 documented as of this encounter
[2024-06-24 07:02] LABS: Basophils # (auto) 0.04 K/uL (0.00-0.20); Basophils % (auto) 0.6 %; Eosinophils # (auto) 0.16 K/uL (0.00-0.50); Eosinophils % (auto) 2.2 %; Hematocrit (blood only) 35.4 % (42.0-52.0); Hemoglobin 11.5 g/dl (14.0-18.0); Immature Granulocytes # (auto) 0.02 K/uL (0.01-0.20); Immature Granulocytes % (auto) 0.3 %; Lymphocytes # (auto) 1.96 K/uL (1.20-3.40); Mean Corpuscular Hemoglobin 29.1 pg (25.0-34.0); Mean Corpuscular Hgb Conc 32.5 g/dL (32.0-36.0); Mean Corpuscular Volume 89.6 fL (80.0-100.0); Mean Platelet Volume 8.9 fL (9.4-12.4); Monocytes # (auto) 0.75 K/uL (0.11-0.59); Monocytes % (auto) 10.3 %; Neutrophils # (auto) 4.32 K/uL (1.40-6.50); Neutrophils % (auto) 59.6 %; Platelet Count 256 K/uL (130-400); Red Blood Count 3.95 M/uL (4.70-6.10); White Blood Count 7.25 K/ul (4.8-10.8)
[2024-06-24 07:30] LABS: Albumin Globulin Ratio 1.1 (0.9-2); Albumin Level 3.2 gm/dl (3.4-5.0); BUN Creatinine Ratio 9.7 (10-20); Calcium 8.7 mg/dl (8.6-10.3); Creatinine Clr Calc Pharmacy 54.5 ml/min; Globulin 2.8 gm/dl (2.5-4.0); Magnesium 1.9 mg/dl (1.7-2.4); Potassium 3.6 mmol/L (3.5-5.1)
--- NOTE | 2024-06-24 08:24 | Hospitalist Progress Note ---
Date of Service June 24, 2024 Assessment & Plan (1) Mild cognitive impairment: (2) Chronic indwelling Tatum catheter: (3) Complicated UTI (urinary tract infection): (4) Elevated blood pressure reading: Plan Mr. High is a 78-year-old male with past medical history significant for adrenal insufficiency on chronic steroids, bronchial asthma/COPD, obstructive sleep apnea, prior DVT/PE s/p IVC filter no longer on anticoagulation due to bleeding issues, bladder cancer s/p surgery off of Keytruda secondary to development of myocarditis, prostate cancer s/p radiation therapy, valvular heart disease ,moderate aortic valve stenosis, mild aortic regurgitation, hypertension, orthostatic hypotension, chronic anemia, mild cognitive impairment and dementia, ambulatory dysfunction ambulates with a walker, urinary incontinence with chronic Tatum, chronic venous insufficiency, CKD stage III who presented to ED 06/23 from Cardiology office due to concern for generalized weakness progressing from baseline. Patient with recent hospitalization for sepsis 2/2 enterococcus UTI and discharged to [facility] for IV antibiotics. Patient requiring wheelchair and difficulty walking since the last hospitalization. It was noted in Cardiology OP follow up weight gain of 203 to 239 pounds. Patient off midodrine 2/2 hypertension and recently transitioned from prednisone to hydrocortisone. Patient with leaking around tatum site, historically with 22 welsh rather than 18 welsh. #Metabolic Encephalopathy, unclear etiology #History of Complicated UTI #Recent Enterococcus bacteremia - completed 2 week course of IV ampicillin #Progressive weakness continue PCU at this time empiric IV zosyn for now, will discontinue if blood cultures/urine negative PT/OT pending urine culture from 06/20 grew joanna, likely colonization await urine culture -NGTD #Chronic, intermittent hematuria #Chronic indwelling tatum #Bladder cancer s/p keytruda Patient follows Urology, Dr. Prado 02/2024: "hold aspirin when bleeding is present. Chronic and intermittent nature of hematuria in the context of a an indwelling Tatum catheter is emphasized." #Severe anxiety trial low dose ativan bid behavioral liason consult Elevated blood pressure reading Orthostatic hypotension BP has been fluctuating per centre care recently midodrine d/c because of this he does have known orthostasis and is on florinef, will check daily orthostatics PRN IV labetalol 5mg for SBP > 160 consider cardiology eval for bp management given complicated hx #Orthostatic hypotension Midodrine discontinued due to hypertension - Continue fludrocortisone - Monitor blood pressure #Chronic Adrenal insufficiency recently seen by Larry Valdovinos, increase hydrocortisone to 30mg in a.m. 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, stable was on high dose steriods, now on routine adrenal insufficiency dosing Chronic conditions: DVT/PE S/P IVC filter off OAC due to bleeding issues Valvular heart disease: most recent echo shows mod/severe Chronic anemia CKD stage III COPD Mild cognitive impairment GERD Continue home medications as able DVT Px: Lovenox, will hold if worsening hematuria FULL CODE PCP: Deondre [facility] Dispo: admit to PCU, r/o bacteremia and infection, PT/OT, CM to be involved sounds as though pt may need superintendent container terminal placement Admission and Anticipated Discharge Date Admission Date: June 23, 2024 Subjective Reports ongoing anxiety but with noted improvement after small dose of ativan Denies any localized symptoms, but reports feeling "off" Reports notable anxiety over moving, over being in the hospital Physical Exam Constitutional: anxious gentleman Respiratory: normal respiratory effort, lungs clear to auscultation Cardiovascular: RRR, no murmur, no edema Gastrointestinal (Abdomen): UA with pink tinge, sediment Results & Data Results & Data Vital Signs (Past 12 Hours) Vital Signs Temp Pulse Resp BP Pulse Ox O2 Del Method 06/24/24 08:12 36.6 C 77 18 145/78 H 98 Room Air 06/24/24 02:42 36.8 C 84 18 108/60 95 Room Air 06/23/24 22:40 36.8 C 89 18 136/70 97 Room Air 06/23/24 20:51 37.6 C H 94 H 16 149/78 H 97 Room Air Laboratory Results Short CBC 06/23/24 06/24/24 Range/Units 14:35 06:24 WBC 8.77 7.25 (4.8-10.8) K/ul Hgb 12.0 L 11.5 L (14.0-18.0) g/dl Hct 37.0 L 35.4 L (42.0-52.0) % Plt Count 307 256 (130-400) K/uL BMP 06/23/24 06/24/24 14:35 06:24 Sodium 139 140 Potassium 3.8 3.6 Chloride 105 106 Carbon Dioxide 25 26 BUN 17 15 Creatinine 1.34 1.55 H Glucose 105 H 105 H Calcium 9.2 8.7 Liver Function 06/24/24 Range/Units 06:24 Total Bilirubin 1.0 (0.2-1.0) mg/dl AST 10 L (13-39) U/L ALT 10 (7-52) U/L Alkaline Phosphatase 75 (34-104) U/L Albumin 3.2 L (3.4-5.0) gm/dl Urine 06/23/24 Range/Units 14:35 Urine Color Yellow Urine Appearance Cloudy A (Clear) Urine pH 6.0 (4.5-7.5) Ur Specific Pool 1.020 (1.000-1.030) Urine Protein 2+ H (Negative) Urine Glucose (UA) Negative (Negative) Medications Administered Home Medications Medication Instructions Recorded Confirmed Last Taken sulfamethoxazole 800 1 tab PO UD 05/31/24 06/23/24 Unknown mg-trimethoprim 160 mg tablet Senna-C 1 tab PO DAILY Constipation #30 06/08/24 06/23/24 Unknown tabs acetaminophen 325 mg tablet 650 mg (2 x 325 mg) PO Q4H PRN 06/08/24 06/23/24 Unknown fever or pain #30 tabs albuterol sulfate 90 mcg/actuation 2 puff inhalation Q4H PRN 06/08/24 06/23/24 Unknown aerosol inhaler Shortness Of Breath Or Wheezing #16 grams ascorbic acid (vitamin C) 1,000 mg 1,000 mg PO DAILY #30 tabs 06/08/24 06/23/24 Unknown tablet aspirin 81 mg tablet,delayed 81 mg PO DAILY #30 tabs 06/08/24 06/23/24 Unknown release cholecalciferol (vitamin D3) 125 125 mcg PO DAILY #30 tabs 06/08/24 06/23/24 Unknown mcg (5,000 unit) tablet (Vitamin D3) cyanocobalamin (vitamin B-12) 1,000 mcg PO DAILY #30 tabs 06/08/24 06/23/24 Unknown 1,000 mcg tablet epinephrine 0.3 mg/0.3 mL 0.3 mg (0.3 mL) IM UD PRN 06/08/24 06/23/24 Unknown injection, auto-injector Anaphylaxis #3 ea ferrous sulfate 325 mg (65 mg 325 mg PO DAILY #30 tabs 06/08/24 06/23/24 Unknown iron) tablet,delayed release fludrocortisone 0.1 mg tablet 0.1 mg PO DAILY #30 tabs 06/08/24 06/23/24 Unknown fluticasone fur. 200 mcg-umeclid 1 inh inhalation DAILY #1 ea 06/08/24 06/23/24 Unknown 62.5 mcg-vilant 25 mcg inhalat.powder (Trelegy Ellipta) lidocaine 5 % topical patch 2 patch transdermal DAILY #20 ea 06/08/24 06/23/24 Unknown magnesium chloride 64 mg 64 mg PO BID #60 tabs 06/08/24 06/23/24 Unknown (magnesium chloride) tablet,delayed release memantine 10 mg tablet 10 mg PO BID #60 tabs 06/08/24 06/23/24 Unknown multivitamin with minerals-folic 1 tab PO DAILY #30 tabs 06/08/24 06/23/24 Unknown acid 200 mcg chewable tablet (Multivitamin Gummies) nystatin 100,000 unit/gram topical 1 applic EXT BID #30 grams 06/08/24 06/23/24 Unknown powder (Nystop) omeprazole 20 mg capsule,delayed 20 mg PO DAILY #30 caps 06/08/24 06/23/24 Unknown release solifenacin 5 mg tablet 5 mg PO DAILY #30 tabs 06/08/24 06/23/24 Unknown hydrocortisone 10 mg tablet 20 mg PO 1500 06/23/24 06/23/24 Unknown (Cortef) hydrocortisone 10 mg tablet 30 mg PO QAM 06/23/24 06/23/24 Unknown (Cortef) Active Medications Generic Name Dose Route Start Last Admin Trade Name Freq PRN Reason Stop Dose Admin Acetaminophen 650 mg 06/23/24 18:12 06/24/24 08:03 Acetaminophen 325 Mg Tab PO 07/23/24 18:11 650 mg Q4H PRN Administration Pain or Fever Ascorbic Acid 1,000 mg 06/24/24 09:00 06/24/24 09:48 Ascorbic Acid 500 Mg Tab PO 07/24/24 08:59 1,000 mg DAILY TAWNY Administration Aspirin 81 mg 06/24/24 09:00 06/24/24 09:48 Aspirin 81 Mg Ectab PO 07/24/24 08:59 81 mg DAILY TAWNY Administration Cyanocobalamin 1,000 mcg 06/24/24 09:00 06/24/24 09:48 Cyanocobalamin (B-12) 500 Mcg Tablet PO 07/24/24 08:59 1,000 mcg DAILY TAWNY Administration Enoxaparin Sodium 40 mg 06/23/24 21:00 06/23/24 20:55 Enoxaparin Inj 40 Mg/0.4 Ml Syr SQ 07/23/24 20:59 40 mg HS TAWNY Administration Ferrous Sulfate 325 mg 06/24/24 09:00 06/24/24 09:45 Ferrous Sulfate 325 Mg Tab PO 07/24/24 08:59 325 mg DAILY TAWNY Administration Fludrocortisone Acetate 0.1 mg 06/24/24 09:00 06/24/24 09:45 Fludrocortisone Acetate 0.1 Mg Tab PO 07/24/24 08:59 0.1 mg DAILY TAWNY Administration Fluticasone Furoate 1 puffs 06/24/24 09:00 06/24/24 09:36 Fluticasone Furoate 200mcg 14 Puffs/Inhaler INH 07/24/24 08:59 1 puffs DAILY TAWNY Administration Hydrocortisone 30 mg 06/24/24 09:00 06/24/24 09:44 Hydrocortisone 10 Mg Tab PO 07/24/24 08:59 30 mg QAM TAWNY Administration Piperacillin Sod/Tazobactam Sod 4.5 gm in 100 mls @ 25 mls/hr 06/23/24 23:00 06/24/24 14:17 Zosyn IV 07/03/24 22:59 Infused Q8H TAWNY Infusion Protocol Lactobacillus Acidophilus 1,250 mg 06/24/24 09:00 06/24/24 09:43 Advanced Probiotic 625 Mg Capsule PO 07/24/24 08:59 1,250 mg DAILY TAWNY Administration Lidocaine 2 patch 06/24/24 09:00 06/24/24 09:37 Lidocaine 5% 1 Patch TD 07/24/24 08:59 2 patch DAILY TAWNY Administration Magnesium Chloride 64 mg 06/23/24 21:00 06/24/24 09:44 Magnesium Chloride W/Calcium 64mg Delayed Rel Tab PO 07/23/24 20:59 64 mg BID TAWNY Administration Memantine 10 mg 06/23/24 21:00 06/24/24 09:44 Memantine Hcl 10 Mg Tab PO 07/23/24 20:59 10 mg BID TAWNY Administration Miscellaneous 1 each 06/23/24 21:00 06/23/24 20:56 Remove Lidoderm Patch N/A 07/23/24 20:59 1 each DAILY@2100 TAWNY Administration Multivitamins/Minerals 1 tab 06/24/24 09:00 06/24/24 09:44 Cerovite Adv Formula Tab PO 07/24/24 08:59 1 tab DAILY TAWNY Administration Nystatin 1 appln 06/23/24 21:00 06/24/24 09:54 Nystatin Powder 15gm Btl EXT 07/23/24 20:59 Not Given BID TAWNY Oxybutynin Chloride 5 mg 06/24/24 09:00 06/24/24 09:44 Oxybutynin Chloride Xl 5 Mg Tabcr PO 07/24/24 08:59 5 mg DAILY TAWNY Administration Pantoprazole Sodium 40 mg 06/24/24 09:00 06/24/24 09:44 Pantoprazole 40 Mg Tab PO 07/24/24 08:59 40 mg DAILY TAWNY Administration Umeclidinium/Vilanterol 1 puffs 06/24/24 09:00 06/24/24 09:37 Umeclidinium/Vilanterol 62.5/25mcg 7 Puffs/Inhaler INH 07/24/24 08:59 1 puffs DAILY TAWNY Administration Vitamin D 125 mcg 06/24/24 09:00 06/24/24 09:48 Cholecalciferol 125 Mcg (5,000 Units) Tab PO 07/24/24 08:59 125 mcg DAILY TAWNY Administration
[2024-06-24] MEDS ORDERED: NON-FORMULARY MEDICATION (Fluticasone-Umeclidin-Vilanter [Trelegy Ellipta] 200-62.5-25 mcg INH SCH (09:00)
[2024-06-24] MEDS: FLUTICASONE FUROATE 200MCG 14 PUFFS/INHALER INH SCH (09:36)
[2024-06-24] MEDS: LIDOCAINE 5% 1 PATCH TD SCH (09:37)
[2024-06-24] MEDS: UMECLIDINIUM/VILANTEROL 62.5/25MCG 7 PUFFS/INHALER INH SCH (09:37)
[2024-06-24] MEDS: ADVANCED PROBIOTIC 625 MG CAPSULE PO SCH (09:43)
[2024-06-24] MEDS: HYDROCORTISONE 10 MG TAB PO SCH ×2 (09:44→16:08)
[2024-06-24] MEDS: CEROVITE ADV FORMULA TAB PO SCH (09:44)
[2024-06-24] MEDS: PANTOprazole 40 MG TAB PO SCH (09:44)
[2024-06-24] MEDS: OXYBUTYNIN CHLORIDE XL 5 MG TABCR PO SCH (09:44)
[2024-06-24] MEDS: FLUDROCORTISONE ACETATE 0.1 MG TAB PO SCH (09:45)
[2024-06-24] MEDS: FERROUS SULFATE 325 MG TAB PO SCH (09:45)
[2024-06-24] MEDS: CYANOCOBALAMIN (B-12) 500 MCG TABLET PO SCH (09:48)
[2024-06-24] MEDS: ASPIRIN 81 MG ECTAB PO SCH (09:48)
[2024-06-24] MEDS: ASCORBIC ACID 500 MG TAB PO SCH (09:48)
[2024-06-24] MEDS: CHOLECALCIFEROL 125 MCG (5,000 UNITS) TAB PO SCH (09:48)
[2024-06-24 11:25] LABS: Ferritin 487.9 ng/ml (8-388)
[2024-06-24 11:47] LABS: Folate (Folic Acid),Ser orPlas 17.53 ng/ml (>5.38)
[2024-06-24] MEDS: LORazepam 2 MG/1 ML VIAL IV STA (13:30)
[2024-06-24] MEDS: LIDOCAINE 2% JELLY 5 ML TUBE EXT ONE (21:48)
[2024-06-24] MEDS: MELATONIN 3 MG TAB PO PRN (21:53)
[2024-06-25 06:51] LABS: Hematocrit (blood only) 36.6 % (42.0-52.0); Hemoglobin 11.7 g/dl (14.0-18.0); Mean Corpuscular Volume 90.6 fL (80.0-100.0); Mean Platelet Volume 8.9 fL (9.4-12.4); Platelet Count 284 K/uL (130-400); RDW Standard Deviation 46.8 fL (36.4-46.3); Red Blood Count 4.04 M/uL (4.70-6.10); White Blood Count 7.22 K/ul (4.8-10.8)
[2024-06-25 07:28] LABS: BUN Creatinine Ratio 9.6 (10-20); Calcium 9.3 mg/dl (8.6-10.3); Creatinine Clr Calc Pharmacy 62.6 ml/min; Phosphorus 4.2 mg/dl (2.5-4.9); Potassium 3.8 mmol/L (3.5-5.1)
[2024-06-25] MEDS: FLUCONAZOLE 100 MG TAB PO STA (07:59)
--- NOTE | 2024-06-25 13:17 | Hospitalist Progress Note ---
Date of Service June 25, 2024 Assessment & Plan (1) Mild cognitive impairment: (2) Chronic indwelling Tatum catheter: (3) Complicated UTI (urinary tract infection): (4) Elevated blood pressure reading: Plan Mr. High is a 78-year-old male with past medical history significant for adrenal insufficiency on chronic steroids, bronchial asthma/COPD, obstructive sleep apnea, prior DVT/PE s/p IVC filter no longer on anticoagulation due to bleeding issues, bladder cancer s/p surgery off of Keytruda secondary to development of myocarditis, prostate cancer s/p radiation therapy, valvular heart disease ,moderate aortic valve stenosis, mild aortic regurgitation, hypertension, orthostatic hypotension, chronic anemia, mild cognitive impairment and dementia, ambulatory dysfunction ambulates with a walker, urinary incontinence with chronic Tatum, chronic venous insufficiency, CKD stage III who presented to ED 06/23 from Cardiology office due to concern for generalized weakness progressing from baseline. Patient with recent hospitalization for sepsis 2/2 enterococcus UTI and discharged to [facility] for IV antibiotics. Patient requiring wheelchair and difficulty walking since the last hospitalization. It was noted in Cardiology OP follow up weight gain of 203 to 239 pounds. Patient off midodrine 2/2 hypertension and recently transitioned from prednisone to hydrocortisone. Patient with leaking around tatum site. Discussed with Urology that given his history and with positioning it can leak, as long as the majority of urine is in the bag and there is no sign of obstruction that this is not abnormal. Patient in bedside chair and reports feeling better. #Metabolic Encephalopathy, unclear etiology #History of Complicated UTI #Recent Enterococcus bacteremia - completed 2 week course of IV ampicillin #Progressive weakness continue PCU at this time empiric IV zosyn for now, will discontinue if blood cultures/urine negative PT/OT pending urine culture from 06/20 grew joanna, likely colonization await urine culture Repeat culture with low growth klebsiella and joanna -Cefuroxime BID -Will treat joanna given complex medical history and ongoing malignancy, 400mg today, 200mg for 10 days #Chronic, intermittent hematuria #Chronic indwelling tatum #Bladder cancer s/p keytruda Patient follows Urology, Dr. Prado 02/2024: "hold aspirin when bleeding is present. Chronic and intermittent nature of hematuria in the context of a an indwelling Tatum catheter is emphasized." Spoke to Urology: leaking in small amounts is not an uncommon phenomena as long as urine is draining as a tatum doesnt create a "vaccum seal" #Severe anxiety trial low dose ativan bid behavioral liaison consult Elevated blood pressure reading Orthostatic hypotension BP has been fluctuating per centre care recently midodrine d/c because of this he does have known orthostasis and is on florinef, will check daily orthostatics PRN IV labetalol 5mg for SBP > 160 consider cardiology eval for bp management given complicated hx -stable thus far #Orthostatic hypotension Midodrine discontinued due to hypertension - Continue fludrocortisone - Monitor blood pressure #Chronic Adrenal insufficiency recently seen by Larry Valdovinos, increase hydro cortisone to 30mg in a.m. and 20mg @ 1500 x 1 week through 06/30 then go back to 20mg in morning and 10mg in afternoon per his recent note #Myocarditis 2/ Keytruda follows cardiology, stable was on high dose steriods, now on routine adrenal insufficiency dosing Chronic conditions: DVT/PE S/P IVC filter off OAC due to bleeding issues Valvular heart disease: most recent echo shows mod/severe Chronic anemia CKD stage III COPD Mild cognitive impairment GERD Continue home medications as able DVT Px: Lovenox, will hold if worsening hematuria FULL CODE PCP: Deondre [facility] Dispo: admit to PCU, r/o bacteremia and infection, PT/OT, CM to be involved sounds as though pt may need terminal makeup operator placement Admission and Anticipated Discharge Date Admission Date: June 23, 2024 Subjective More calm and interactive this am Still reports feeling confused Denies any acute concerns this morning--but forgetful however was sitting in bedside chair this am Physical Exam Constitutional: WD/WN, vitals as above Respiratory: normal respiratory effort, lungs clear to auscultation Cardiovascular: RRR, no murmur, no edema Results & Data Results & Data Vital Signs (Past 12 Hours) Vital Signs Temp Pulse Resp BP Pulse Ox O2 Del Method 06/25/24 11:58 36.6 C 70 18 112/58 L 99 Room Air 06/25/24 08:01 36.7 C 68 18 122/74 98 Room Air 06/25/24 06:45 36.4 C L 67 18 143/80 H 99 Room Air Laboratory Results Short CBC 06/25/24 Range/Units 06:09 WBC 7.22 (4.8-10.8) K/ul Hgb 11.7 L (14.0-18.0) g/dl Hct 36.6 L (42.0-52.0) % Plt Count 284 (130-400) K/uL BMP 06/25/24 06:09 Sodium 140 Potassium 3.8 Chloride 106 Carbon Dioxide 25 BUN 13 Creatinine 1.35 Glucose 92 Calcium 9.3 Medications Administered Home Medications Medication Instructions Recorded Confirmed Last Taken sulfamethoxazole 800 1 tab PO UD 05/31/24 06/23/24 Unknown mg-trimethoprim 160 mg tablet Senna-C 1 tab PO DAILY Constipation #30 06/08/24 06/23/24 Unknown tabs acetaminophen 325 mg tablet 650 mg (2 x 325 mg) PO Q4H PRN 06/08/24 06/23/24 Unknown fever or pain #30 tabs albuterol sulfate 90 mcg/actuation 2 puff inhalation Q4H PRN 06/08/24 06/23/24 Unknown aerosol inhaler Shortness Of Breath Or Wheezing #16 grams ascorbic acid (vitamin C) 1,000 mg 1,000 mg PO DAILY #30 tabs 06/08/24 06/23/24 Unknown tablet aspirin 81 mg tablet,delayed 81 mg PO DAILY #30 tabs 06/08/24 06/23/24 Unknown release cholecalciferol (vitamin D3) 125 125 mcg PO DAILY #30 tabs 06/08/24 06/23/24 Unknown mcg (5,000 unit) tablet (Vitamin D3) cyanocobalamin (vitamin B-12) 1,000 mcg PO DAILY #30 tabs 06/08/24 06/23/24 Unknown 1,000 mcg tablet epinephrine 0.3 mg/0.3 mL 0.3 mg (0.3 mL) IM UD PRN 06/08/24 06/23/24 Unknown injection, auto-injector Anaphylaxis #3 ea ferrous sulfate 325 mg (65 mg 325 mg PO DAILY #30 tabs 06/08/24 06/23/24 Unknown iron) tablet,delayed release fludrocortisone 0.1 mg tablet 0.1 mg PO DAILY #30 tabs 06/08/24 06/23/24 Unknown fluticasone fur. 200 mcg-umeclid 1 inh inhalation DAILY #1 ea 06/08/24 06/23/24 Unknown 62.5 mcg-vilant 25 mcg inhalat.powder (Trelegy Ellipta) lidocaine 5 % topical patch 2 patch transdermal DAILY #20 ea 06/08/24 06/23/24 Unknown magnesium chloride 64 mg 64 mg PO BID #60 tabs 06/08/24 06/23/24 Unknown (magnesium chloride) tablet,delayed release memantine 10 mg tablet 10 mg PO BID #60 tabs 06/08/24 06/23/24 Unknown multivitamin with minerals-folic 1 tab PO DAILY #30 tabs 06/08/24 06/23/24 Unknown acid 200 mcg chewable tablet (Multivitamin Gummies) nystatin 100,000 unit/gram topical 1 applic EXT BID #30 grams 06/08/24 06/23/24 Unknown powder (Nystop) omeprazole 20 mg capsule,delayed 20 mg PO DAILY #30 caps 06/08/24 06/23/24 Unknown release solifenacin 5 mg tablet 5 mg PO DAILY #30 tabs 06/08/24 06/23/24 Unknown hydrocortisone 10 mg tablet 20 mg PO 1500 06/23/24 06/23/24 Unknown (Cortef) hydrocortisone 10 mg tablet 30 mg PO QAM 06/23/24 06/23/24 Unknown (Cortef) Active Medications Generic Name Dose Route Start Last Admin Trade Name Freq PRN Reason Stop Dose Admin Acetaminophen 650 mg 06/23/24 18:12 06/25/24 08:16 Acetaminophen 325 Mg Tab PO 07/23/24 18:11 650 mg Q4H PRN Administration Pain or Fever Ascorbic Acid 1,000 mg 06/24/24 09:00 06/25/24 08:04 Ascorbic Acid 500 Mg Tab PO 07/24/24 08:59 1,000 mg DAILY TAWNY Administration Aspirin 81 mg 06/24/24 09:00 06/25/24 08:04 Aspirin 81 Mg Ectab PO 07/24/24 08:59 81 mg DAILY TAWNY Administration Cyanocobalamin 1,000 mcg 06/24/24 09:00 06/25/24 08:07 Cyanocobalamin (B-12) 500 Mcg Tablet PO 07/24/24 08:59 Not Given DAILY TAWNY Enoxaparin Sodium 40 mg 06/23/24 21:00 06/24/24 21:51 Enoxaparin Inj 40 Mg/0.4 Ml Syr SQ 07/23/24 20:59 40 mg HS TAWNY Administration Ferrous Sulfate 325 mg 06/24/24 09:00 06/25/24 08:06 Ferrous Sulfate 325 Mg Tab PO 07/24/24 08:59 325 mg DAILY TAWNY Administration Fludrocortisone Acetate 0.1 mg 06/24/24 09:00 06/25/24 08:06 Fludrocortisone Acetate 0.1 Mg Tab PO 07/24/24 08:59 0.1 mg DAILY TAWNY Administration Fluticasone Furoate 1 puffs 06/24/24 09:00 06/25/24 08:02 Fluticasone Furoate 200mcg 14 Puffs/Inhaler INH 07/24/24 08:59 1 puffs DAILY TAWNY Administration Hydrocortisone 20 mg 06/24/24 15:00 06/24/24 16:08 Hydrocortisone 10 Mg Tab PO 07/24/24 14:59 20 mg 1500 TAWNY Administration Hydrocortisone 30 mg 06/24/24 09:00 06/25/24 08:07 Hydrocortisone 10 Mg Tab PO 07/24/24 08:59 30 mg QAM TAWNY Administration Lactobacillus Acidophilus 1,250 mg 06/24/24 09:00 06/25/24 08:10 Advanced Probiotic 625 Mg Capsule PO 07/24/24 08:59 1,250 mg DAILY TAWNY Administration Lidocaine 2 patch 06/24/24 09:00 06/25/24 08:08 Lidocaine 5% 1 Patch TD 07/24/24 08:59 2 patch DAILY TAWNY Administration Magnesium Chloride 64 mg 06/23/24 21:00 06/25/24 08:03 Magnesium Chloride W/Calcium 64mg Delayed Rel Tab PO 07/23/24 20:59 64 mg BID TAWNY Administration Melatonin 6 mg 06/23/24 21:00 06/24/24 21:53 Melatonin 3 Mg Tab PO 07/23/24 20:59 6 mg HS PRN Administration Sleep Memantine 10 mg 06/23/24 21:00 06/25/24 08:05 Memantine Hcl 10 Mg Tab PO 07/23/24 20:59 10 mg BID TAWNY Administration Miscellaneous 1 each 06/23/24 21:00 06/24/24 21:51 Remove Lidoderm Patch N/A 07/23/24 20:59 1 each DAILY@2100 TAWNY Administration Multivitamins/Minerals 1 tab 06/24/24 09:00 06/25/24 08:04 Cerovite Adv Formula Tab PO 07/24/24 08:59 1 tab DAILY TAWNY Administration Nystatin 1 appln 06/23/24 21:00 06/25/24 08:07 Nystatin Powder 15gm Btl EXT 07/23/24 20:59 1 appln BID TAWNY Administration Oxybutynin Chloride 5 mg 06/24/24 09:00 06/25/24 08:06 Oxybutynin Chloride Xl 5 Mg Tabcr PO 07/24/24 08:59 5 mg DAILY TAWNY Administration Pantoprazole Sodium 40 mg 06/24/24 09:00 06/25/24 08:04 Pantoprazole 40 Mg Tab PO 07/24/24 08:59 40 mg DAILY TAWNY Administration Umeclidinium/Vilanterol 1 puffs 06/24/24 09:00 06/25/24 08:02 Umeclidinium/Vilanterol 62.5/25mcg 7 Puffs/Inhaler INH 07/24/24 08:59 1 puffs DAILY TAWNY Administration Vitamin D 125 mcg 06/24/24 09:00 06/25/24 08:05 Cholecalciferol 125 Mcg (5,000 Units) Tab PO 07/24/24 08:59 125 mcg DAILY TAWNY Administration
[2024-06-25] MEDS: cefUROXime axetil 500 MG TAB PO SCH (14:53)
[2024-06-25] MEDS: LORazepam 0.5 MG TAB PO PRN (15:51)
[2024-06-25] MEDS: LORazepam 2 MG/1 ML VIAL IV STA (18:33)
--- NOTE | 2024-06-25 20:23 | Electrocardiogram Report ---
Test Reason : Blood Pressure : */* mmHG Vent. Rate : 83 BPM Atrial Rate : 83 BPM P-R Int : 142 ms QRS Dur : 78 ms QT Int : 372 ms P-R-T Axes : -7 12 10 degrees QTcB Int : 437 ms Normal sinus rhythm Nonspecific ST abnormality Abnormal ECG When compared with ECG of 31-May-2024 04:15, ST no longer depressed in Lateral leads Nonspecific T wave abnormality now evident in Inferior leads Confirmed by Willi Meza [id number] on 06/25/2024 8:22:34 PM Referred By: [facility] Confirmed By: Willi Meza
--- NOTE | 2024-06-25 22:18 | Communication Note ---
Date of Service: June 25, 2024 Patient agitated and yelling as per RN. Ativan ineffective. AP Delirium Zyprexa in place of as needed Ativan for now
[2024-06-25] MEDS: OLANZAPINE 2.5 MG TAB PO STA (22:40)
[2024-06-26 07:48] LABS: Hematocrit (blood only) 38.1 % (42.0-52.0); Hemoglobin 12.2 g/dl (14.0-18.0); Mean Corpuscular Hemoglobin 28.6 pg (25.0-34.0); Mean Corpuscular Volume 89.4 fL (80.0-100.0); Mean Platelet Volume 8.9 fL (9.4-12.4); Platelet Count 329 K/uL (130-400); RDW Coefficient of Variation 13.9 % (11.5-14.5); RDW Standard Deviation 45.3 fL (36.4-46.3); Red Blood Count 4.26 M/uL (4.70-6.10); White Blood Count 7.61 K/ul (4.8-10.8)
[2024-06-26 08:11] LABS: Phosphorus 3.1 mg/dl (2.5-4.9)
[2024-06-26 08:12] LABS: BUN Creatinine Ratio 11.7 (10-20); Calcium 9.3 mg/dl (8.6-10.3); Creatinine Clr Calc Pharmacy 66.1 ml/min; Magnesium 1.9 mg/dl (1.7-2.4); Potassium 3.5 mmol/L (3.5-5.1)
[2024-06-26] MEDS: FLUCONAZOLE 100 MG TAB PO SCH (09:25)
[2024-06-26] MEDS: ESCITALOPRAM OXALATE 10 MG TAB PO SCH (09:49)
--- NOTE | 2024-06-26 11:32 | Psychiatric Consultation ---
Date of Consultation June 26, 2024 Impression / Recommendations Impression Diagnostically consistent with possible delirium vs worsening cognitive impairment (given cardiac events and risk factors could have a vascular dementia, brain MRI in December 2023 with evidence for microvascular ischemic changes) vs unspecified anxiety. Agree with initiation of escitalopram for anxiety and given concern for likely contribution from delirium in context of complicated UTI and ongoing significant anxiety with perseveration and psychic distress would consider trial of abilify. Goal in dementia/cognitive impairment is to avoid medication management of behaviors if possible by maximizing non-pharmacologic strategies for behavioral management. However, given worsening psychic distress felt reasonable to start an antipsychotic as a trial as risk/benefit profile favors treatment. Note all a ntipsychotic medications carry black box warning for increased risk of all-cause mortality in setting of dementia. Overall, I spent a total of 45 minutes with this case including review of chart records, review of labwork, review of EKG QTc, direct evaluation of the patient at bedside, counseling the patient, discussion of the patient with the Nurse and with the hospitalist provider, discussion with the psychiatric liason during clinical rounds, review of collateral historian information from the family and documentation in the electronic health record. (1) Complicated UTI (urinary tract infection): (2) Mild cognitive impairment: (3) Delirium: (4) Anxiety: Plan -Agree with initiation of escitalopram 5mg daily, can increase to 10mg in 5-7 days if tolerated -Start abilify 2.5mg qAM and can increase to 5mg daily as tolerated to manage ruminations -Consider melatonin 3mg qhs -Continue medical workup to rule out and treat any underlying causes contributing to potential delirium, avoid or limit use of deliriogenic medications (benzodiazepines, opioids, anticholinergics) -Continue with delirium prevention measures: raising blinds during the day, closing at night, frequent re-orientation, contact with family/friends, explaining procedures/nursing care measures prior to physical contact, correct any hearing and visual impairments -Ok to use ativan sparingly as ordered but would try to limit if possible as this could worsen delirium and increase fall risk and cognitive impairment -For behavioral emergency would use: olanzapine 2.5mg IM (avoid concurrent use with IV or IM benzodiazepines) Psych History Identifying Data 78 yo man with a history of adrenal insufficiency on chronic steroids, bronchial asthma/COPD, obstructive sleep apnea, history of DVT/PE s/p IVC filter no longer on anticoagulation due to bleeding issues, bladder cancer s/p surgery off of Keytruda secondary to development of myocarditis, prostate cancer s/p radiation therapy, valvular heart disease ,moderate aortic stenosis, mild aortic regurgitation, hypertension, orthostatic hypotension, chronic anemia, mild cognitive impairment and dementia, ambulatory dysfunction ambulates with a walker, urinary incontinence, currently on chronic Devlin, chronic venous insu fficiency, CKD stage III admitted medically for increased weakness. Psychiatry consulted for recommendations for severe anxiety and confusion. Chief Complaint "I was going to go downstairs for dinner but now I think I'll have it up here in my room". History of Present Illness Todd was admitted and being treated for concern for complicated UTI. He's had periods of confusion and requiring frequent reassurance from nurses and providers due to significant anxiety. He's been calling his repeatedly from the phone in his room. Per RN apparently demonstrates significantly worsening in the evening. Last evening required IV ativan and po olanzapine. Today he is fully oriented but demonstrates confusion at times including thinking he might be eating dinner on a different floor and asking for clarification about how basic tasks within the hospital environment function. He expresses significant appreciation and gratitude for meeting with him. Reflects that he was at the top of his career and someone others looked up to and came to for advice and over the past 14 months, in the context of multiple significant medical issues, no longer feels like himself. Endorses significant anxiety and periods of confusion. No longer feels safe driving and worries about the impact his decompensation has on his . States "I'm just a settlement kind of adri". He is open to trying abilify and continuing escitalopram to see if this will help with his confusion, restlessness and anxiety. Allergies Allergy/AdvReac Type Severity Reaction Status Date / Time Iodinated Contrast Media Allergy Severe LOVERSOL---CARDIAC Verified 06/22/24 13:[address] CONTRAST clindamycin Allergy Intermediate Rash Verified 06/22/24 13:25 chocolate flavor AdvReac Severe DIARRHEA/ Verified 06/22/24 13:25 Cannot take, interacts w/ medications. cranberry AdvReac Severe Cannot Verified 06/22/24 13:25 take, interacts w/ medications. pembrolizumab [From Keytruda] AdvReac Intermediate myocarditis Verified 06/22/24 13:25 Home Medications Medication Instructions Recorded Confirmed Type sulfamethoxazole 800 1 tab PO UD 05/31/24 06/23/24 History mg-trimethoprim 160 mg tablet Senna-C 1 tab PO DAILY Constipation #30 06/08/24 06/23/24 Rx tabs acetaminophen 325 mg tablet 650 mg (2 x 325 mg) PO Q4H PRN 06/08/24 06/23/24 Rx fever or pain #30 tabs albuterol sulfate 90 mcg/actuation 2 puff inhalation Q4H PRN 06/08/24 06/23/24 Rx aerosol inhaler Shortness Of Breath Or Wheezing #16 grams ascorbic acid (vitamin C) 1,000 mg 1,000 mg PO DAILY #30 tabs 06/08/24 06/23/24 Rx tablet aspirin 81 mg tablet,delayed 81 mg PO DAILY #30 tabs 06/08/24 06/23/24 Rx release cholecalciferol (vitamin D3) 125 125 mcg PO DAILY #30 tabs 06/08/24 06/23/24 Rx mcg (5,000 unit) tablet (Vitamin D3) cyanocobalamin (vitamin B-12) 1,000 mcg PO DAILY #30 tabs 06/08/24 06/23/24 Rx 1,000 mcg tablet epinephrine 0.3 mg/0.3 mL 0.3 mg (0.3 mL) IM UD PRN 06/08/24 06/23/24 Rx injection, auto-injector Anaphylaxis #3 ea ferrous sulfate 325 mg (65 mg 325 mg PO DAILY #30 tabs 06/08/24 06/23/24 Rx iron) tablet,delayed release fludrocortisone 0.1 mg tablet 0.1 mg PO DAILY #30 tabs 06/08/24 06/23/24 Rx fluticasone fur. 200 mcg-umeclid 1 inh inhalation DAILY #1 ea 06/08/24 06/23/24 Rx 62.5 mcg-vilant 25 mcg inhalat.powder (Trelegy Ellipta) lidocaine 5 % topical patch 2 patch transdermal DAILY #20 ea 06/08/24 06/23/24 Rx magnesium chloride 64 mg 64 mg PO BID #60 tabs 06/08/24 06/23/24 Rx (magnesium chloride) tablet,delayed release memantine 10 mg tablet 10 mg PO BID #60 tabs 06/08/24 06/23/24 Rx multivitamin with minerals-folic 1 tab PO DAILY #30 tabs 06/08/24 06/23/24 Rx acid 200 mcg chewable tablet (Multivitamin Gummies) nystatin 100,000 unit/gram topical 1 applic EXT BID #30 grams 06/08/24 06/23/24 Rx powder (Nystop) omeprazole 20 mg capsule,delayed 20 mg PO DAILY #30 caps 06/08/24 06/23/24 Rx release solifenacin 5 mg tablet 5 mg PO DAILY #30 tabs 06/08/24 06/23/24 Rx hydrocortisone 10 mg tablet 20 mg PO 1500 06/23/24 06/23/24 History (Cortef) hydrocortisone 10 mg tablet 30 mg PO QAM 06/23/24 06/23/24 History (Cortef) Patient History Medical History Fracture of multiple teeth Sacral pressure sore Ambulatory dysfunction Generalized weakness Anemia Urethral stricture Ascending aorta dilation Mild- 4.4cm per 11/2022 ECHO Obesity Venous insufficiency (chronic) (peripheral) Radiation cystitis Kidney stones x1 episode. no surgery needed. Cardiac arrest hx r/t IV Contrast Dye "many years ago" Allergic rhinitis Contrast media allergy Hiatal hernia Surgical History S/P cataract extraction History of right cataract extraction History of colonoscopy H/O sinus surgery History of appendectomy S/P TURP (status post transurethral resection of prostate) Status post cystoscopy (11/07/13) Family History Father Prostate cancer Brother Prostate cancer Mother Thyroid cancer Cancer Other No family history of adverse response to anesthesia Social History Smoking Status: Never smoker Tobacco Type: Cigarettes Second Hand Exposure: Yes; Do You Dip or Chew Tobacco: No; Tobacco Cessation Education Requested by Patient: No Hx Alcohol Use: No Hx Substance Use: No Preferred Language: Gabonese Communication Ability: Effective Visual Impairment: Limited Hearing Ability: Normal Hyperbaric Technician Required: No Beliefs That Will Affect Care: None marital status: Current Living Situation: Spouse Current Living Situation Comment: at home with current occupational status: retired How many Children do You have: 0 Other Information That Helps Us Care for You: No Feels Safe at Home: Yes Safety Concerns: Feels Safe At This Time Diet: regular during the past year weight has: decreased > 10 lbs Seatbelt Use: always Do you think of yourself as: straight/heterosexual Gender Identity: Male Assistive Devices: Bedside Commode, Hospital Bed and Walker Physical Exam Psychiatric: Orientation: alert and oriented x 3 Apperance: appropriately dressed Eye Contact: good eye contact Motor Behavior: no abnormal motor movements Speech: normal rate/rhythm/volume of speech Affect: + anxious affect Mood: + anxious mood Thought Process: + circumstantial thought process and + perseveration Thought Content: + preoccupation Suicidal Thoughts: denies suicidal thoughts Homicidal Thoughts: denies homicidal thoughts Hallucinations: no auditory hallucinations and no visual hallucinations Cognition: recent memory grossly intact; + attention not intact and + language not intact Insight: + limited insight Judgment: + limited judgement Vital Signs (Past 24 Hours): Last Vital Signs Temp 36.4 C L 06/26/24 07:37 Pulse 65 06/26/24 07:37 Resp 16 06/26/24 07:37 BP 145/79 H 06/26/24 07:37 Pulse Ox 94 06/26/24 07:37 O2 Del Method Room Air 06/26/24 08:00 O2 Flow Rate 0 06/25/24 08:00 Results & Data (PSY) Medications Administered Acetaminophen (Acetaminophen 325 Mg Tab) 650 mg PO Q4H PRN PRN Reason: Pain or Fever Stop: 07/23/24 18:11 Last Admin: 06/25/24 20:43 Dose: 650 mg Documented By: Admin: 06/25/24 08:16 Dose: 650 mg Documented By: Admin: 06/24/24 08:03 Dose: 650 mg Documented By: Admin: 06/24/24 00:31 Dose: 650 mg Documented By: WALLACE Ascorbic Acid (Ascorbic Acid 500 Mg Tab) 1,000 mg PO DAILY [facility] Stop: 07/24/24 08:59 Last Admin: 06/26/24 09:27 Dose: 1,000 mg Documented By: Admin: 06/25/24 08:04 Dose: 1,000 mg Documented By: Admin: 06/24/24 09:48 Dose: 1,000 mg Documented By: SHAKIRA Aspirin (Aspirin 81 Mg Ectab) 81 mg PO DAILY TAWNY Stop: 07/24/24 08:59 Last Admin: 06/26/24 09:28 Dose: 81 mg Documented By: Admin: 06/25/24 08:04 Dose: 81 mg Documented By: Admin: 06/24/24 09:48 Dose: 81 mg Documented By: SHAKIRA Cefuroxime Axetil (Cefuroxime Axetil 500 Mg Tab) 500 mg PO BID TAWNY Stop: 07/05/24 13:29 Last Admin: 06/26/24 09:24 Dose: 500 mg Documented By: Admin: 06/25/24 20:43 Dose: 500 mg Documented By: Admin: 06/25/24 14:53 Dose: 500 mg Documented By: SHAKIRA Cyanocobalamin (Cyanocobalamin (B-12) 500 Mcg Tablet) 1,000 mcg PO DAILY TAWNY Stop: 07/24/24 08:59 Last Admin: 06/26/24 09:29 Dose: 1,000 mcg Documented By: Admin: 06/25/24 08:07 Dose: Not Given Documented By: Admin: 06/24/24 09:48 Dose: 1,000 mcg Documented By: SHAKIRA Enoxaparin Sodium (Enoxaparin Inj 40 Mg/0.4 Ml Syr) 40 mg SQ HS TAWNY Stop: 07/23/24 20:59 Last Admin: 06/25/24 20:44 Dose: 40 mg Documented By: Admin: 06/24/24 21:51 Dose: 40 mg Documented By: Admin: 06/23/24 20:55 Dose: 40 mg Documented By: GALEN Escitalopram Oxalate (Escitalopram Oxalate 10 Mg Tab) 5 mg PO QAM TAWNY Stop: 07/26/24 08:59 Last Admin: 06/26/24 09:49 Dose: 5 mg Documented By: SHAKIRA Ferrous Sulfate (Ferrous Sulfate 325 Mg Tab) 325 mg PO DAILY TAWNY Stop: 07/24/24 08:59 Last Admin: 06/26/24 09:28 Dose: 325 mg Documented By: Admin: 06/25/24 08:06 Dose: 325 mg Documented By: Admin: 06/24/24 09:45 Dose: 325 mg Documented By: SHAKIRA Fluconazole (Fluconazole 100 Mg Tab) 200 mg PO QAM TAWNY Stop: 07/06/24 08:59 Last Admin: 06/26/24 09:25 Dose: 200 mg Documented By: SHAKIRA Fludrocortisone Acetate (Fludrocortisone Acetate 0.1 Mg Tab) 0.1 mg PO DAILY TAWNY Stop: 07/24/24 08:59 Last Admin: 06/26/24 09:25 Dose: 0.1 mg Documented By: Admin: 06/25/24 08:06 Dose: 0.1 mg Documented By: Admin: 06/24/24 09:45 Dose: 0.1 mg Documented By: SHAKIRA Fluticasone Furoate (Fluticasone Furoate 200mcg 14 Puffs/Inhaler) 1 puffs INH DAILY TAWNY Stop: 07/24/24 08:59 Last Admin: 06/26/24 09:23 Dose: 1 puffs Documented By: Admin: 06/25/24 08:02 Dose: 1 puffs Documented By: Admin: 06/24/24 09:36 Dose: 1 puffs Documented By: SHAKIRA Heparin Sodium (Beef Lung) (Heparin 10 Unit/Ml 5 Ml Flush) 5 ml FLUSH PRN PRN PRN Reason: Flush Stop: 07/24/24 11:59 Last Admin: 06/25/24 20:51 Dose: 5 ml Documented By: BROOKE Hydrocortisone (Hydrocortisone 10 Mg Tab) 20 mg PO 1500 TAWNY Stop: 07/24/24 14:59 Last Admin: 06/25/24 14:53 Dose: 20 mg Documented By: Admin: 06/24/24 16:08 Dose: 20 mg Documented By: SHAKIRA Hydrocortisone (Hydrocortisone 10 Mg Tab) 30 mg PO QAM TAWNY Stop: 07/24/24 08:59 Last Admin: 06/26/24 09:27 Dose: 30 mg Documented By: Admin: 06/25/24 08:07 Dose: 30 mg Documented By: Admin: 06/24/24 09:44 Dose: 30 mg Documented By: SHAKIRA Lactobacillus Acidophilus (Advanced Probiotic 625 Mg Capsule) 1,250 mg PO DAILY TAWNY Stop: 07/24/24 08:59 Last Admin: 06/26/24 09:25 Dose: 1,250 mg Documented By: Admin: 06/25/24 08:10 Dose: 1,250 mg Documented By: Admin: 06/24/24 09:43 Dose: 1,250 mg Documented By: SHAKIRA Lidocaine (Lidocaine 5% 1 Patch) 2 patch TD DAILY TAWNY Stop: 07/24/24 08:59 Last Admin: 06/26/24 09:29 Dose: 2 patch Documented By: Admin: 06/25/24 08:08 Dose: 2 patch Documented By: Admin: 06/24/24 09:37 Dose: 2 patch Documented By: SHAKIRA Lorazepam (Lorazepam 0.5 Mg Tab) 0.25 mg PO BID PRN PRN Reason: Anxiety Stop: 07/24/24 14:50 Last Admin: 06/25/24 15:51 Dose: 0.25 mg Documented By: SHAKIRA Magnesium Chloride (Magnesium Chloride W/Calcium 64mg Delayed Rel Tab) 64 mg PO BID TAWNY Stop: 07/23/24 20:59 Last Admin: 06/26/24 09:27 Dose: 64 mg Documented By: Admin: 06/25/24 20:43 Dose: 64 mg Documented By: Admin: 06/25/24 08:03 Dose: 64 mg Documented By: Admin: 06/24/24 21:51 Dose: 64 mg Documented By: Admin: 06/24/24 09:44 Dose: 64 mg Documented By: Admin: 06/23/24 20:56 Dose: 64 mg Documented By: GALEN Melatonin (Melatonin 3 Mg Tab) 6 mg PO HS PRN PRN Reason: Sleep Stop: 07/23/24 20:59 Last Admin: 06/25/24 20:43 Dose: 6 mg Documented By: Admin: 06/24/24 21:53 Dose: 6 mg Documented By: WALLACE Memantine (Memantine Hcl 10 Mg Tab) 10 mg PO BID TAWNY Stop: 07/23/24 20:59 Last Admin: 06/26/24 09:27 Dose: 10 mg Documented By: Admin: 06/25/24 20:43 Dose: 10 mg Documented By: Admin: 06/25/24 08:05 Dose: 10 mg Documented By: Admin: 06/24/24 21:51 Dose: 10 mg Documented By: Admin: 06/24/24 09:44 Dose: 10 mg Documented By: Admin: 06/23/24 20:56 Dose: 10 mg Documented By: GALEN Miscellaneous (Remove Lidoderm Patch) 1 each N/A DAILY@2100 TAWNY Stop: 07/23/24 20:59 Last Admin: 06/25/24 20:44 Dose: 1 each Documented By: Admin: 06/24/24 21:51 Dose: 1 each Documented By: Admin: 06/23/24 20:56 Dose: 1 each Documented By: GALEN Multivitamins/Minerals (Cerovite Adv Formula Tab) 1 tab PO DAILY TAWNY Stop: 07/24/24 08:59 Last Admin: 06/26/24 09:28 Dose: 1 tab Documented By: Admin: 06/25/24 08:04 Dose: 1 tab Documented By: Admin: 06/24/24 09:44 Dose: 1 tab Documented By: SHAKIRA Nystatin (Nystatin Powder 15gm Btl) 1 appln EXT BID TAWNY Stop: 07/23/24 20:59 Last Admin: 06/26/24 09:30 Dose: 1 appln Documented By: Admin: 06/25/24 20:44 Dose: 1 appln Documented By: Admin: 06/25/24 08:07 Dose: 1 appln Documented By: Admin: 06/24/24 21:51 Dose: 1 appln Documented By: Admin: 06/24/24 09:54 Dose: Not Given Documented By: Admin: 06/23/24 20:56 Dose: 1 appln Documented By: GALEN Oxybutynin Chloride (Oxybutynin Chloride Xl 5 Mg Tabcr) 5 mg PO DAILY TAWNY Stop: 07/24/24 08:59 Last Admin: 06/26/24 09:28 Dose: 5 mg Documented By: Admin: 06/25/24 08:06 Dose: 5 mg Documented By: Admin: 06/24/24 09:44 Dose: 5 mg Documented By: SHAKIRA Pantoprazole Sodium (Pantoprazole 40 Mg Tab) 40 mg PO DAILY TAWNY Stop: 07/24/24 08:59 Last Admin: 06/26/24 09:29 Dose: 40 mg Documented By: Admin: 06/25/24 08:04 Dose: 40 mg Documented By: Admin: 06/24/24 09:44 Dose: 40 mg Documented By: SHAKIRA Umeclidinium/Vilanterol (Umeclidinium/Vilanterol 62.5/25mcg 7 Puffs/Inhaler) 1 puffs INH DAILY TAWNY Stop: 07/24/24 08:59 Last Admin: 06/26/24 09:23 Dose: 1 puffs Documented By: Admin: 06/25/24 08:02 Dose: 1 puffs Documented By: Admin: 06/24/24 09:37 Dose: 1 puffs Documented By: SHAKIRA Vitamin D (Cholecalciferol 125 Mcg (5,000 Units) Tab) 125 mcg PO DAILY TAWNY Stop: 07/24/24 08:59 Last Admin: 06/26/24 09:29 Dose: 125 mcg Documented By: Admin: 06/25/24 08:05 Dose: 125 mcg Documented By: Admin: 06/24/24 09:48 Dose: 125 mcg Documented By: SHAKIRA Coding Level of Care Code 31040 IN/OBS CONSULT LVL 3,45M Diagnoses Complicated UTI (urinary tract infection) N39.0 Mild cognitive impairment G31.84 Delirium R41.0 Anxiety F41.9
--- NOTE | 2024-06-26 11:56 | Hospitalist Progress Note ---
Date of Service June 26, 2024 Assessment & Plan (1) Mild cognitive impairment: (2) Chronic indwelling Tatum catheter: (3) Complicated UTI (urinary tract infection): (4) Elevated blood pressure reading: Plan Mr. High is a 78-year-old male with past medical history significant for adrenal insufficiency on chronic steroids, bronchial asthma/COPD, obstructive sleep apnea, prior DVT/PE s/p IVC filter no longer on anticoagulation due to bleeding issues, bladder cancer s/p surgery off of Keytruda secondary to development of myocarditis, prostate cancer s/p radiation therapy, valvular heart disease ,moderate aortic valve stenosis, mild aortic regurgitation, hypertension, orthostatic hypotension, chronic anemia, mild cognitive impairment and dementia, ambulatory dysfunction ambulates with a walker, urinary incontinence with chronic Tatum, chronic venous insufficiency, CKD stage III who presented to ED 06/23 from Cardiology office due to concern for generalized weakness progressing from baseline. Patient with recent hospitalization for sepsis 2/2 enterococcus UTI and discharged to [facility] for IV antibiotics. Patient requiring wheelchair and difficulty walking since the last hospitalization. It was noted in Cardiology OP follow up weight gain of 203 to 239 pounds. Patient off midodrine 2/2 hypertension and recently transitioned from prednisone to hydrocortisone. Patient with leaking around tatum site. Discussed with Urology that given his history and with positioning it can leak, as long as the majority of urine is in the bag and there is no sign of obstruction that this is not abnormal. 06/26 patient noted to be more anxious and inconsolable--psychiatry consulted to aid in these behaviors. Question of extreme anxiety as apart of cognitive impairment or agitated delirium #Severe anxiety trial low dose ativan bid behavioral liaison consult, psychiatry consulted ?severe anxiety iso cog impairment v agitated delirium -5mg escitalopram started daily, with plans to increase to 10mg daily as tolerated -Start abilify 2.5mg daily to aid with ruminations -can continued ativan prn but limit as able -2.5 IM zyprexa for behavioral emergency #Metabolic Encephalopathy, unclear etiology #History of Complicated UTI #Recent Enterococcus bacteremia - completed 2 week course of IV ampicillin #Progressive weakness continue PCU at this time empiric IV zosyn for now, will discontinue if blood cultures/urine negative PT/OT pending urine culture from 06/20 grew joanna, likely colonization await urine culture Repeat culture with low growth klebsiella and joanna -Cefuroxime BID -Will treat joanna given complex medical history and ongoing malignancy, 400mg 06/25 then 200mg for 10 days 07/05 #Chronic, intermittent hematuria #Chronic indwelling tatum #Bladder cancer s/p marilutruda Patient follows Urology, Dr. Prado 02/2024: "hold aspirin when bleeding is present. Chronic and intermittent nature of hematuria in the context of a an indwelling Tatum catheter is emphasized." Spoke to Urology: leaking in small amounts is not an uncommon phenomena as long as urine is draining as a tatum doesnt create a "vaccum seal" #Orthostatic hypotension Midodrine discontinued due to hypertension - Continue fludrocortisone - Monitor blood pressure #Chronic Adrenal insufficiency recently seen by Larry Valdovinos, increase hydrocortisone to 30mg in a.m. 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 Peter follows cardiology, stable was on high dose steroids, now on routine adrenal insufficiency dosing Chronic conditions: DVT/PE S/P IVC filter off OAC due to bleeding issues Valvular heart disease: most recent echo shows mod/severe Chronic anemia CKD stage III COPD Mild cognitive impairment GERD Continue home medications as able DVT Px: Lovenox, will hold if worsening hematuria FULL CODE PCP: Deondre Hill Dispo: admit to PCU, r/o bacteremia and infection, PT/OT, CM to be involved sounds as though pt may need assisted placement Admission and Anticipated Discharge Date Admission Date: June 23, 2024 Subjective notably very anxious this morning, feeling concerned over phone and needing to call multiple times Reassurance offered--patient with some confusion but over all alert and oriented Denies any localizing concerns like pain or discomfort Physical Exam Constitutional: extremely anxious and focused on room phone and calling , easy to redirect however only briefly Respiratory: normal respiratory effort, lungs clear to auscultation Cardiovascular: RRR, no murmur, no edema Results & Data Results & Data Vital Signs (Past 12 Hours) Vital Signs Temp Pulse Pulse Resp BP Pulse Ox O2 Del Method 06/26/24 08:00 Room Air 06/26/24 07:37 36.4 C L 65 16 145/79 H 94 Room Air 06/26/24 05:42 75 06/26/24 04:48 36.4 C L 80 20 158/84 H 99 Room Air Laboratory Results Short CBC 06/26/24 Range/Units 06:37 WBC 7.61 (4.8-10.8) K/ul Hgb 12.2 L (14.0-18.0) g/dl Hct 38.1 L (42.0-52.0) % Plt Count 329 (130-400) K/uL BMP 06/26/24 06:37 Sodium 143 Potassium 3.5 Chloride 106 Carbon Dioxide 26 BUN 15 Creatinine 1.28 Glucose 86 Calcium 9.3 Medications Administered Home Medications Medication Instructions Recorded Confirmed Last Taken sulfamethoxazole 800 1 tab PO UD 05/31/24 06/23/24 Unknown mg-trimethoprim 160 mg tablet Senna-C 1 tab PO DAILY Constipation #30 06/08/24 06/23/24 Unknown tabs acetaminophen 325 mg tablet 650 mg (2 x 325 mg) PO Q4H PRN 06/08/24 06/23/24 Unknown fever or pain #30 tabs albuterol sulfate 90 mcg/actuation 2 puff inhalation Q4H PRN 06/08/24 06/23/24 Unknown aerosol inhaler Shortness Of Breath Or Wheezing #16 grams ascorbic acid (vitamin C) 1,000 mg 1,000 mg PO DAILY #30 tabs 06/08/24 06/23/24 Unknown tablet aspirin 81 mg tablet,delayed 81 mg PO DAILY #30 tabs 06/08/24 06/23/24 Unknown release cholecalciferol (vitamin D3) 125 125 mcg PO DAILY #30 tabs 06/08/24 06/23/24 Unknown mcg (5,000 unit) tablet (Vitamin D3) cyanocobalamin (vitamin B-12) 1,000 mcg PO DAILY #30 tabs 06/08/24 06/23/24 Unknown 1,000 mcg tablet epinephrine 0.3 mg/0.3 mL 0.3 mg (0.3 mL) IM UD PRN 06/08/24 06/23/24 Unknown injection, auto-injector Anaphylaxis #3 ea ferrous sulfate 325 mg (65 mg 325 mg PO DAILY #30 tabs 06/08/24 06/23/24 Unknown iron) tablet,delayed release fludrocortisone 0.1 mg tablet 0.1 mg PO DAILY #30 tabs 06/08/24 06/23/24 Unknown fluticasone fur. 200 mcg-umeclid 1 inh inhalation DAILY #1 ea 06/08/24 06/23/24 Unknown 62.5 mcg-vilant 25 mcg inhalat.powder (Trelegy Ellipta) lidocaine 5 % topical patch 2 patch transdermal DAILY #20 ea 06/08/24 06/23/24 Unknown magnesium chloride 64 mg 64 mg PO BID #60 tabs 06/08/24 06/23/24 Unknown (magnesium chloride) tablet,delayed release memantine 10 mg tablet 10 mg PO BID #60 tabs 06/08/24 06/23/24 Unknown multivitamin with minerals-folic 1 tab PO DAILY #30 tabs 06/08/24 06/23/24 Unknown acid 200 mcg chewable tablet (Multivitamin Gummies) nystatin 100,000 unit/gram topical 1 applic EXT BID #30 grams 06/08/24 06/23/24 Unknown powder (Nystop) omeprazole 20 mg capsule,delayed 20 mg PO DAILY #30 caps 06/08/24 06/23/24 Unknown release solifenacin 5 mg tablet 5 mg PO DAILY #30 tabs 06/08/24 06/23/24 Unknown hydrocortisone 10 mg tablet 20 mg PO 1500 06/23/24 06/23/24 Unknown (Cortef) hydrocortisone 10 mg tablet 30 mg PO QAM 06/23/24 06/23/24 Unknown (Cortef) Active Medications Generic Name Dose Route Start Last Admin Trade Name Freq PRN Reason Stop Dose Admin Acetaminophen 650 mg 06/23/24 18:12 06/25/24 20:43 Acetaminophen 325 Mg Tab PO 07/23/24 18:11 650 mg Q4H PRN Administration Pain or Fever Ascorbic Acid 1,000 mg 06/24/24 09:00 06/26/24 09:27 Ascorbic Acid 500 Mg Tab PO 07/24/24 08:59 1,000 mg DAILY TAWNY Administration Aspirin 81 mg 06/24/24 09:00 06/26/24 09:28 Aspirin 81 Mg Ectab PO 07/24/24 08:59 81 mg DAILY TAWNY Administration Cefuroxime Axetil 500 mg 06/25/24 13:30 06/26/24 09:24 Cefuroxime Axetil 500 Mg Tab PO 07/05/24 13:29 500 mg BID TAWNY Administration Cyanocobalamin 1,000 mcg 06/24/24 09:00 06/26/24 09:29 Cyanocobalamin (B-12) 500 Mcg Tablet PO 07/24/24 08:59 1,000 mcg DAILY TAWNY Administration Enoxaparin Sodium 40 mg 06/23/24 21:00 06/25/24 20:44 Enoxaparin Inj 40 Mg/0.4 Ml Syr SQ 07/23/24 20:59 40 mg HS TAWNY Administration Escitalopram Oxalate 5 mg 06/26/24 09:00 06/26/24 09:49 Escitalopram Oxalate 10 Mg Tab PO 07/26/24 08:59 5 mg QAM TAWNY Administration Ferrous Sulfate 325 mg 06/24/24 09:00 06/26/24 09:28 Ferrous Sulfate 325 Mg Tab PO 07/24/24 08:59 325 mg DAILY TAWNY Administration Fluconazole 200 mg 06/26/24 09:00 06/26/24 09:25 Fluconazole 100 Mg Tab PO 07/06/24 08:59 200 mg QAM TAWNY Administration Fludrocortisone Acetate 0.1 mg 06/24/24 09:00 06/26/24 09:25 Fludrocortisone Acetate 0.1 Mg Tab PO 07/24/24 08:59 0.1 mg DAILY TAWNY Administration Fluticasone Furoate 1 puffs 06/24/24 09:00 06/26/24 09:23 Fluticasone Furoate 200mcg 14 Puffs/Inhaler INH 07/24/24 08:59 1 puffs DAILY TAWNY Administration Heparin Sodium (Beef Lung) 5 ml 06/24/24 12:00 06/25/24 20:51 Heparin 10 Unit/Ml 5 Ml Flush FLUSH 07/24/24 11:59 5 ml PRN PRN Administration Flush Hydrocortisone 20 mg 06/24/24 15:00 06/25/24 14:53 Hydrocortisone 10 Mg Tab PO 07/24/24 14:59 20 mg 1500 TAWNY Administration Hydrocortisone 30 mg 06/24/24 09:00 06/26/24 09:27 Hydrocortisone 10 Mg Tab PO 07/24/24 08:59 30 mg QAM TAWNY Administration Lactobacillus Acidophilus 1,250 mg 06/24/24 09:00 06/26/24 09:25 Advanced Probiotic 625 Mg Capsule PO 07/24/24 08:59 1,250 mg DAILY TAWNY Administration Lidocaine 2 patch 06/24/24 09:00 06/26/24 09:29 Lidocaine 5% 1 Patch TD 07/24/24 08:59 2 patch DAILY TAWNY Administration Lorazepam 0.25 mg 06/24/24 14:51 06/25/24 15:51 Lorazepam 0.5 Mg Tab PO 07/24/24 14:50 0.25 mg BID PRN Administration Anxiety Magnesium Chloride 64 mg 06/23/24 21:00 06/26/24 09:27 Magnesium Chloride W/Calcium 64mg Delayed Rel Tab PO 07/23/24 20:59 64 mg BID TAWNY Administration Melatonin 6 mg 06/23/24 21:00 06/25/24 20:43 Melatonin 3 Mg Tab PO 07/23/24 20:59 6 mg HS PRN Administration Sleep Memantine 10 mg 06/23/24 21:00 06/26/24 09:27 Memantine Hcl 10 Mg Tab PO 07/23/24 20:59 10 mg BID TAWNY Administration Miscellaneous 1 each 06/23/24 21:00 06/25/24 20:44 Remove Lidoderm Patch N/A 07/23/24 20:59 1 each DAILY@2100 TAWNY Administration Multivitamins/Minerals 1 tab 06/24/24 09:00 06/26/24 09:28 Cerovite Adv Formula Tab PO 07/24/24 08:59 1 tab DAILY TAWNY Administration Nystatin 1 appln 06/23/24 21:00 06/26/24 09:30 Nystatin Powder 15gm Btl EXT 07/23/24 20:59 1 appln BID TAWNY Administration Oxybutynin Chloride 5 mg 06/24/24 09:00 06/26/24 09:28 Oxybutynin Chloride Xl 5 Mg Tabcr PO 07/24/24 08:59 5 mg DAILY TAWNY Administration Pantoprazole Sodium 40 mg 06/24/24 09:00 06/26/24 09:29 Pantoprazole 40 Mg Tab PO 07/24/24 08:59 40 mg DAILY TAWNY Administration Umeclidinium/Vilanterol 1 puffs 06/24/24 09:00 06/26/24 09:23 Umeclidinium/Vilanterol 62.5/25mcg 7 Puffs/Inhaler INH 07/24/24 08:59 1 puffs DAILY TAWNY Administration Vitamin D 125 mcg 06/24/24 09:00 06/26/24 09:29 Cholecalciferol 125 Mcg (5,000 Units) Tab PO 07/24/24 08:59 125 mcg DAILY TAWNY Administration
[2024-06-26] MEDS ORDERED: Nursing to Pharmacy Communication SCH (12:00)
[2024-06-26] MEDS: ARIPiprazole 5 MG TAB PO SCH (13:36)
[2024-06-26] MEDS: MEMANTINE HCL 10 MG TAB PO SCH (16:53)
[2024-06-26] MEDS: MELATONIN 3 MG TAB PO SCH (20:07)
[2024-06-27 07:43] LABS: Hemoglobin 11.4 g/dl (14.0-18.0); Mean Corpuscular Hemoglobin 28.5 pg (25.0-34.0); Mean Corpuscular Hgb Conc 31.7 g/dL (32.0-36.0); Mean Platelet Volume 8.9 fL (9.4-12.4); Platelet Count 314 K/uL (130-400); RDW Coefficient of Variation 13.7 % (11.5-14.5); RDW Standard Deviation 45.1 fL (36.4-46.3); White Blood Count 7.33 K/ul (4.8-10.8)
[2024-06-27 08:03] LABS: BUN Creatinine Ratio 13.3 (10-20); Magnesium 1.9 mg/dl (1.7-2.4); Phosphorus 3.4 mg/dl (2.5-4.9); Potassium 3.3 mmol/L (3.5-5.1)
[2024-06-27] MEDS: HYDROCORTISONE 10 MG TAB PO SCH ×2 (08:26→16:48)
[2024-06-27] MEDS: POTASSIUM CHLORIDE 20 MEQ/15 ML UDC PO SCH (12:57)
--- NOTE | 2024-06-27 15:51 | Hospitalist Progress Note ---
Date of Service June 27, 2024 Assessment & Plan (1) Mild cognitive impairment: (2) Chronic indwelling Tatum catheter: (3) Complicated UTI (urinary tract infection): (4) Elevated blood pressure reading: Plan Mr. High is a 78-year-old male with past medical history significant for adrenal insufficiency on chronic steroids, bronchial asthma/COPD, obstructive sleep apnea, prior DVT/PE s/p IVC filter no longer on anticoagulation due to bleeding issues, bladder cancer s/p surgery off of Keytruda secondary to development of myocarditis, prostate cancer s/p radiation therapy, valvular heart disease ,moderate aortic valve stenosis, mild aortic regurgitation, hypertension, orthostatic hypotension, chronic anemia, mild cognitive impairment and dementia, ambulatory dysfunction ambulates with a walker, urinary incontinence with chronic Tatum, chronic venous insufficiency, CKD stage III who presented to ED 06/23 from Cardiology office due to concern for generalized weakness progressing from baseline. Patient with recent hospitalization for sepsis 2/2 enterococcus UTI and discharged to [facility] for IV antibiotics. Patient requiring wheelchair and difficulty walking since the last hospitalization. It was noted in Cardiology OP follow up weight gain of 203 to 239 pounds. Patient off midodrine 2/2 hypertension and recently transitioned from prednisone to hydrocortisone. Patient with leaking around tatum site. Discussed with Urology that given his history and with positioning it can leak, as long as the majority of urine is in the bag and there is no sign of obstruction that this is not abnormal. 06/26 patient noted to be more anxious and inconsolable--psychiatry consulted to aid in these behaviors. Question of extreme anxiety as apart of cognitive impairment or agitated delirium. Patient started on abilify and escitalopram. Also noted that symptoms seeming started with increased dosing of hydrocortisone. Per Dr. Gillette note, recommended going back to baseline 20/10 if no improvement, and given dyer rise in anxiety/ruminations after initiating, will return back to 20/10. #Severe anxiety trial low dose ativan bid behavioral liaison consult, psychiatry consulted ?severe anxiety iso cog impairment v agitated delirium -Continue 5mg escitalopram (started 06/26) with plans to increase to 10mg daily as tolerated in 5-7 days -Continue abilify 2.5mg daily to aid with ruminations -can continued ativan prn but limit as able -2.5 IM zyprexa for behavioral emergency #Metabolic Encephalopathy, unclear etiology #History of Complicated UTI #Recent Enterococcus bacteremia - completed 2 week course of IV ampicillin #Progressive weakness continue PCU at this time empiric IV zosyn for now, will discontinue if blood cultures/urine negative PT/OT pending urine culture from 06/20 grew joanna, likely colonization await urine culture Repeat culture with low growth klebsiella and joanna -Cefuroxime BID until 07/05 -Will treat joanna given complex medical history and ongoing malignancy, 400mg 06/25 then 200mg for 10 days 07/05 #Chronic, intermittent hematuria #Chronic indwelling tatum #Bladder cancer s/p keytruda Patient follows Urology, Dr. Prado 02/2024: "hold aspirin when bleeding is present. Chronic and intermittent nature of hematuria in the context of a an indwelling Tatum catheter is emphasized." Spoke to Urology: leaking in small amounts is not an uncommon phenomena as long as urine is draining as a tatum doesn't create a "vaccum seal" #Orthostatic hypotension Midodrine discontinued due to hypertension - Continue fludrocortisone - Monitor blood pressure #Chronic Adrenal insufficiency recently seen by Larry Valdovinos, increase hydroco rtisone to 30mg in a.m. and 20mg @ 1500 x 1 week through 06/30 then go back to 20mg in morning and 10mg in afternoon per his recent note #Myocarditis 2/ Keytruda follows cardiology, stable was on high dose steroids, now on routine adrenal insufficiency dosing Chronic conditions: DVT/PE S/P IVC filter off OAC due to bleeding issues Valvular heart disease: most recent echo shows mod/severe Chronic anemia CKD stage III COPD Mild cognitive impairment GERD Continue home medications as able DVT Px: Lovenox, will hold if worsening hematuria FULL CODE PCP: Deondre Hill Dispo: admit to PCU, r/o bacteremia and infection, PT/OT, CM to be involved sounds as though pt may need assisted placement Admission and Anticipated Discharge Date Admission Date: June 23, 2024 Subjective Better mood reported this morning Denies any acute concerns--states that anxiety is better controlled Physical Exam Constitutional: WD/WN, vitals as above Respiratory: normal respiratory effort, lungs clear to auscultation Cardiovascular: RRR, no murmur, no edema Gastrointestinal (Abdomen): normal bowel sounds, soft, nontender, no hepatosplenomegaly : urine clear yellow, draining in bag Results & Data Results & Data Vital Signs (Past 12 Hours) Vital Signs Temp Pulse Resp BP Pulse Ox O2 Del Method 06/27/24 15:07 36.3 C L 90 18 105/65 99 Room Air 06/27/24 10:38 36.8 C 18 99 Room Air 06/27/24 08:08 36.4 C L 87 18 129/70 98 Room Air Laboratory Results Short CBC 06/27/24 Range/Units 06:19 WBC 7.33 (4.8-10.8) K/ul Hgb 11.4 L (14.0-18.0) g/dl Hct 36.0 L (42.0-52.0) % Plt Count 314 (130-400) K/uL BMP 06/27/24 06:19 Sodium 145 Potassium 3.3 L Chloride 109 H Carbon Dioxide 25 BUN 16 Creatinine 1.20 Glucose 87 Calcium 9.0 Medications Administered Home Medications Medication Instructions Recorded Confirmed Last Taken sulfamethoxazole 800 1 tab PO UD 05/31/24 06/23/24 Unknown mg-trimethoprim 160 mg tablet Senna-C 1 tab PO DAILY Constipation #30 06/08/24 06/23/24 Unknown tabs acetaminophen 325 mg tablet 650 mg (2 x 325 mg) PO Q4H PRN 06/08/24 06/23/24 Unknown fever or pain #30 tabs albuterol sulfate 90 mcg/actuation 2 puff inhalation Q4H PRN 06/08/24 06/23/24 Unknown aerosol inhaler Shortness Of Breath Or Wheezing #16 grams ascorbic acid (vitamin C) 1,000 mg 1,000 mg PO DAILY #30 tabs 06/08/24 06/23/24 Unknown tablet aspirin 81 mg tablet,delayed 81 mg PO DAILY #30 tabs 06/08/24 06/23/24 Unknown release cholecalciferol (vitamin D3) 125 125 mcg PO DAILY #30 tabs 06/08/24 06/23/24 Unknown mcg (5,000 unit) tablet (Vitamin D3) cyanocobalamin (vitamin B-12) 1,000 mcg PO DAILY #30 tabs 06/08/24 06/23/24 Unknown 1,000 mcg tablet epinephrine 0.3 mg/0.3 mL 0.3 mg (0.3 mL) IM UD PRN 06/08/24 06/23/24 Unknown injection, auto-injector Anaphylaxis #3 ea ferrous sulfate 325 mg (65 mg 325 mg PO DAILY #30 tabs 06/08/24 06/23/24 Unknown iron) tablet,delayed release fludrocortisone 0.1 mg tablet 0.1 mg PO DAILY #30 tabs 06/08/24 06/23/24 Unknown fluticasone fur. 200 mcg-umeclid 1 inh inhalation DAILY #1 ea 06/08/24 06/23/24 Unknown 62.5 mcg-vilant 25 mcg inhalat.powder (Trelegy Ellipta) lidocaine 5 % topical patch 2 patch transdermal DAILY #20 ea 06/08/24 06/23/24 Unknown magnesium chloride 64 mg 64 mg PO BID #60 tabs 06/08/24 06/23/24 Unknown (magnesium chloride) tablet,delayed release memantine 10 mg tablet 10 mg PO BID #60 tabs 06/08/24 06/23/24 Unknown multivitamin with minerals-folic 1 tab PO DAILY #30 tabs 06/08/24 06/23/24 Unknown acid 200 mcg chewable tablet (Multivitamin Gummies) nystatin 100,000 unit/gram topical 1 applic EXT BID #30 grams 06/08/24 06/23/24 Unknown powder (Nystop) omeprazole 20 mg capsule,delayed 20 mg PO DAILY #30 caps 06/08/24 06/23/24 Unknown release solifenacin 5 mg tablet 5 mg PO DAILY #30 tabs 06/08/24 06/23/24 Unknown hydrocortisone 10 mg tablet 20 mg PO 1500 06/23/24 06/23/24 Unknown (Cortef) hydrocortisone 10 mg tablet 30 mg PO QAM 06/23/24 06/23/24 Unknown (Cortef) Active Medications Generic Name Dose Route Start Last Admin Trade Name Freq PRN Reason Stop Dose Admin Acetaminophen 650 mg 06/23/24 18:12 06/26/24 20:12 Acetaminophen 325 Mg Tab PO 07/23/24 18:11 650 mg Q4H PRN Administration Pain or Fever Aripiprazole 2.5 mg 06/26/24 12:00 06/27/24 08:25 Aripiprazole 5 Mg Tab PO 07/26/24 11:59 2.5 mg QAM TAWNY Administration Ascorbic Acid 1,000 mg 06/24/24 09:00 06/27/24 08:24 Ascorbic Acid 500 Mg Tab PO 07/24/24 08:59 1,000 mg DAILY TAWNY Administration Aspirin 81 mg 06/24/24 09:00 06/27/24 08:26 Aspirin 81 Mg Ectab PO 07/24/24 08:59 81 mg DAILY TAWNY Administration Cefuroxime Axetil 500 mg 06/25/24 13:30 06/27/24 08:23 Cefuroxime Axetil 500 Mg Tab PO 07/05/24 13:29 500 mg BID TAWNY Administration Cyanocobalamin 1,000 mcg 06/24/24 09:00 06/27/24 08:23 Cyanocobalamin (B-12) 500 Mcg Tablet PO 07/24/24 08:59 1,000 mcg DAILY TAWNY Administration Enoxaparin Sodium 40 mg 06/23/24 21:00 06/26/24 20:08 Enoxaparin Inj 40 Mg/0.4 Ml Syr SQ 07/23/24 20:59 40 mg HS TAWNY Administration Escitalopram Oxalate 5 mg 06/26/24 09:00 06/27/24 08:27 Escitalopram Oxalate 10 Mg Tab PO 07/26/24 08:59 5 mg QAM TAWNY Administration Ferrous Sulfate 325 mg 06/24/24 09:00 06/27/24 08:25 Ferrous Sulfate 325 Mg Tab PO 07/24/24 08:59 325 mg DAILY TAWNY Administration Fluconazole 200 mg 06/26/24 09:00 06/27/24 08:22 Fluconazole 100 Mg Tab PO 07/06/24 08:59 200 mg QAM TAWNY Administration Fludrocortisone Acetate 0.1 mg 06/24/24 09:00 06/27/24 08:24 Fludrocortisone Acetate 0.1 Mg Tab PO 07/24/24 08:59 0.1 mg DAILY TAWNY Administration Fluticasone Furoate 1 puffs 06/24/24 09:00 06/27/24 08:29 Fluticasone Furoate 200mcg 14 Puffs/Inhaler INH 07/24/24 08:59 1 puffs DAILY TAWNY Administration Heparin Sodium (Beef Lung) 5 ml 06/24/24 12:00 06/27/24 12:54 Heparin 10 Unit/Ml 5 Ml Flush FLUSH 07/24/24 11:59 5 ml PRN PRN Administration Flush Hydrocortisone 20 mg 06/27/24 09:00 06/27/24 08:26 Hydrocortisone 10 Mg Tab PO 07/27/24 08:59 20 mg QAM TAWNY Administration Lactobacillus Acidophilus 1,250 mg 06/24/24 09:00 06/27/24 08:23 Advanced Probiotic 625 Mg Capsule PO 07/24/24 08:59 1,250 mg DAILY TAWNY Administration Lidocaine 2 patch 06/24/24 09:00 06/27/24 08:29 Lidocaine 5% 1 Patch TD 07/24/24 08:59 2 patch DAILY TAWNY Administration Lorazepam 0.25 mg 06/24/24 14:51 06/25/24 15:51 Lorazepam 0.5 Mg Tab PO 07/24/24 14:50 0.25 mg BID PRN Administration Anxiety Magnesium Chloride 64 mg 06/23/24 21:00 06/27/24 08:25 Magnesium Chloride W/Calcium 64mg Delayed Rel Tab PO 07/23/24 20:59 64 mg BID TAWNY Administration Melatonin 3 mg 06/26/24 21:00 06/26/24 20:07 Melatonin 3 Mg Tab PO 07/26/24 20:59 3 mg HS TAWNY Administration Memantine 10 mg 06/26/24 17:00 06/27/24 08:25 Memantine Hcl 10 Mg Tab PO 07/26/24 16:59 10 mg BIDM TAWNY Administration Miscellaneous 1 each 06/23/24 21:00 06/26/24 20:10 Remove Lidoderm Patch N/A 07/23/24 20:59 1 each DAILY@2100 TAWNY Administration Multivitamins/Minerals 1 tab 06/24/24 09:00 06/27/24 08:27 Cerovite Adv Formula Tab PO 07/24/24 08:59 1 tab DAILY TAWNY Administration Nystatin 1 appln 06/23/24 21:00 06/27/24 08:28 Nystatin Powder 15gm Btl EXT 07/23/24 20:59 1 appln BID TAWNY Administration Oxybutynin Chloride 5 mg 06/24/24 09:00 06/27/24 08:23 Oxybutynin Chloride Xl 5 Mg Tabcr PO 07/24/24 08:59 5 mg DAILY TAWNY Administration Pantoprazole Sodium 40 mg 06/24/24 09:00 06/27/24 08:27 Pantoprazole 40 Mg Tab PO 07/24/24 08:59 40 mg DAILY TAWNY Administration Potassium Chloride 40 meq 06/27/24 12:00 06/27/24 12:57 Potassium Chloride 20 Meq/15 Ml Udc PO 06/27/24 23:01 40 meq BID TAWNY Administration Umeclidinium/Vilanterol 1 puffs 06/24/24 09:00 06/27/24 08:28 Umeclidinium/Vilanterol 62.5/25mcg 7 Puffs/Inhaler INH 07/24/24 08:59 1 puffs DAILY TAWNY Administration Vitamin D 125 mcg 06/24/24 09:00 06/27/24 08:24 Cholecalciferol 125 Mcg (5,000 Units) Tab PO 07/24/24 08:59 125 mcg DAILY TAWNY Administration
[2024-06-27] MEDS: OLANZapine 10 MG/2.1 ML SDV IM PRN (16:48)
--- NOTE | 2024-06-27 18:56 | CT Scan Report ---
Clinical History: Altered mental status Technique: Axial computed tomography images were obtained of the brain without intravenous contrast. Comparison is made to the prior CT dated 11/23/2023 Findings: There is diffuse cerebral atrophy, within expected limits for the patient's age. Areas of decreased attenuation are seen within the periventricular white matter, likely representing chronic small vessel ischemic disease. There is no definite sign of acute or old infarction. No intracranial hemorrhage is evident. No definite mass lesion is seen on this noncontrast examination. There is no midline shift or other form of herniation. No hydrocephalus is seen. No fracture is identified. There is fluid in the left maxillary and sphenoid sinuses. The mastoid air cells appear clear. Impression: 1. Cerebral atrophy and chronic small vessel ischemic disease 2. Acute sinusitis Electronically signed by Piyush Andersen 06-27-2024 6:56 PM
[2024-06-28 08:00] LABS: Hematocrit (blood only) 35.2 % (42.0-52.0); Hemoglobin 11.3 g/dl (14.0-18.0); Mean Corpuscular Hemoglobin 28.8 pg (25.0-34.0); Mean Corpuscular Hgb Conc 32.1 g/dL (32.0-36.0); Mean Corpuscular Volume 89.8 fL (80.0-100.0); Mean Platelet Volume 8.7 fL (9.4-12.4); Platelet Count 317 K/uL (130-400); RDW Coefficient of Variation 13.9 % (11.5-14.5); RDW Standard Deviation 45.6 fL (36.4-46.3); Red Blood Count 3.92 M/uL (4.70-6.10); White Blood Count 7.33 K/ul (4.8-10.8)
[2024-06-28 08:05] LABS: BUN Creatinine Ratio 12.1 (10-20); Creatinine Clr Calc Pharmacy 67.7 ml/min; Potassium 3.8 mmol/L (3.5-5.1)
[2024-06-28 12:28] LABS: Appearance Urine Cloudy (Clear); Bacteria Urine Automated None Seen (None Seen); Bilirubin Urine Negative (Negative); Blood Urine 3+ (Negative); Color Urine Yellow; Epithelial Cell Urine Auto 0-2 /hpf (0-2); Glucose Urine UA Negative (Negative); Ketones Urine Negative (Negative); Leukocyte Esterase Urine 3+ (Negative); Nitrite Urine Negative (Negative); Protein Urine 2+ (Negative); RBC Urine Automated >20 /hpf (0-2); Specific Gravity Urine 1.018 (1.000-1.030); Urobilinogen Urine Negative (Negative); WBC Urine Automated >50 /hpf (0-5); pH Urine 5.5 (4.5-7.5)
--- NOTE | 2024-06-28 14:51 | Hospitalist Progress Note ---
Date of Service June 28, 2024 Assessment & Plan (1) Mild cognitive impairment: (2) Chronic indwelling Tatum catheter: (3) Complicated UTI (urinary tract infection): (4) Elevated blood pressure reading: Plan Mr. High is a 78-year-old male with past medical history significant for adrenal insufficiency on chronic steroids, bronchial asthma/COPD, obstructive sleep apnea, prior DVT/PE s/p IVC filter no longer on anticoagulation due to bleeding issues, bladder cancer s/p surgery off of Keytruda secondary to development of myocarditis, prostate cancer s/p radiation therapy, valvular heart disease ,moderate aortic valve stenosis, mild aortic regurgitation, hypertension, orthostatic hypotension, chronic anemia, mild cognitive impairment and dementia, ambulatory dysfunction ambulates with a walker, urinary incontinence with chronic Tatum, chronic venous insufficiency, CKD stage III who presented to ED 06/23 from Cardiology office due to concern for generalized weakness progressing from baseline. Per previous provider with addendum: Patient with recent hospitalization for sepsis 2/2 enterococcus UTI and discharged to [facility] for IV antibiotics. Patient requiring wheelchair and difficulty walking since the last hospitalizati on. It was noted in Cardiology OP follow up weight gain of 203 to 239 pounds. Patient off midodrine 2/2 hypertension and recently transitioned from prednisone to hydrocortisone. Patient with leaking around tatum site. Discussed with Urology that given his history and with positioning it can leak, as long as the majority of urine is in the bag and there is no sign of obstruction that this is not abnormal. 06/26 patient noted to be more anxious and inconsolable--psychiatry consulted to aid in these behaviors. Question of extreme anxiety as apart of cognitive impairment or agitated delirium. Patient started on abilify and escitalopram. Also noted that symptoms seeming started with increased dosing of hydrocortisone. Per Dr. Gillette note, recommended going back to baseline 20/10 if no improvement, and given dyer rise in anxiety/ruminations after initiating, will return back to 20/10. Pt's midline removed on 06/28/24. Severe anxiety trial low dose ativan bid behavioral liaison consult, psychiatry consulted ?severe anxiety in setting of cog impairment v agitated delirium -Continue 5mg escitalopram (started 06/26) with plans to increase to 10mg daily as tolerated in 5-7 days -Continue abilify 2.5mg daily to aid with ruminations -can continued ativan prn but limit as able -2.5 IM zyprexa for behavioral emergency 06/28- stable Metabolic Encephalopathy, unclear etiology History of Complicated UTI Recent Enterococcus bacteremia - completed 2 week course of IV ampicillin Progressive weakness continue PCU at this time PT/OT recommending acute rehab urine culture from 06/20 grew sylvia, likely colonization await urine culture Repeat culture with low growth klebsiella and sylvia -Cefuroxime BID until 07/05 -Will treat sylvia given complex medical history and ongoing malignancy, 400mg 06/25 then 200mg for 10 days 07/05 06/28- continue abx as above Chronic, intermittent hematuria Chronic indwelling tatum Bladder cancer s/p keytruda Patient follows with Urology, Dr. Prado 02/2024: "hold aspirin when bleeding is present. Chronic and intermittent nature of hematuria in the context of a an indwelling Tatum catheter is emphasized." Previous provider Spoke to Urology: leaking in small amounts is not an uncommon phenomena as long as urine is draining as a tatum doesn't create a "vaccum seal" 06/28-stable Orthostatic hypotension Midodrine discontinued due to hypertension Continue fludrocortisone Monitor blood pressure Chronic Adrenal insufficiency recently seen by Larry Valdovinos, increase hydrocortisone to 30mg in a.m. 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 States that he was having some thigh and back pain. Did have the lidocaine patch in place on the right. asking about getting a CT scan done that cardiology wanted. also adamant that she would like him to have some IV fluids. Discussion that labs were reviewed this morning and did not indicate a need for IV fluids at this time. Also discussed patient's history of aortic stenosis and hesitation to use IV fluids unless absolutely necessary in that setting. verbalized understanding and agreement. Later notified by nursing that would like to talk some more and had additional questions. was contacted via telephone and advised that she would like patient to have more than 2 weeks of IV antibiotics. As well as the IV fluids. Discussion once more of possibility of causing more harm with IV fluids at this time given that it is not indicated in the setting of patient's history of aortic stenosis. once again verbalized understanding and agreement. Extensive discussion about patient's blood cultures and ID recommendations for treatment for 2 weeks. Discussion of repeat blood cultures that were done that currently show no acute infection. Discussion of need for removal of midline at this time given no further IV antibiotic requirement. Discussion of current treatment of urine with Sylvia and Klebsiella with oral antibiotics at this time. Discussion that patient is not currently septic. Patient verbalized understanding and agreement. Review of Systems Review of Systems: All systems reviewed & are unremarkable except as noted in Subjective Physical Exam Physical Exam: General: Alert, oriented Neuro: Pt with difficulty moving in chair at bedside HEENT: NC/AT CV: RRR Resp: Breath sounds clear bilaterally, no increased effort of breathing Abdomen: Soft, nontender Extremities: No edema in lower extremities bilaterally. Results & Data Results & Data Vital Signs (Past 12 Hours) Vital Signs Temp Pulse Pulse Resp BP Pulse Ox O2 Del Method 06/28/24 09:43 62 06/28/24 09:38 121/70 06/28/24 07:44 36.4 C L 73 18 182/79 H 99 Room Air
[2024-06-29 07:08] LABS: Basophils # (auto) 0.04 K/uL (0.00-0.20); Basophils % (auto) 0.5 %; Eosinophils # (auto) 0.19 K/uL (0.00-0.50); Eosinophils % (auto) 2.2 %; Hematocrit (blood only) 33.9 % (42.0-52.0); Hemoglobin 10.8 g/dl (14.0-18.0); Immature Granulocytes # (auto) 0.05 K/uL (0.01-0.20); Immature Granulocytes % (auto) 0.6 %; Lymphocytes # (auto) 2.35 K/uL (1.20-3.40); Lymphocytes % (auto) 26.9 %; Mean Corpuscular Hemoglobin 28.9 pg (25.0-34.0); Mean Corpuscular Hgb Conc 31.9 g/dL (32.0-36.0); Mean Corpuscular Volume 90.6 fL (80.0-100.0); Mean Platelet Volume 8.8 fL (9.4-12.4); Monocytes # (auto) 0.65 K/uL (0.11-0.59); Monocytes % (auto) 7.4 %; Neutrophils # (auto) 5.47 K/uL (1.40-6.50); Neutrophils % (auto) 62.4 %; Platelet Count 331 K/uL (130-400); RDW Coefficient of Variation 14.4 % (11.5-14.5); RDW Standard Deviation 47.9 fL (36.4-46.3); Red Blood Count 3.74 M/uL (4.70-6.10); White Blood Count 8.75 K/ul (4.8-10.8)
[2024-06-29 07:17] LABS: BUN Creatinine Ratio 11.9 (10-20); Calcium 8.9 mg/dl (8.6-10.3); Magnesium 1.9 mg/dl (1.7-2.4); Phosphorus 3.7 mg/dl (2.5-4.9); Potassium 3.7 mmol/L (3.5-5.1)
--- NOTE | 2024-06-29 13:03 | Hospitalist Progress Note ---
Date of Service June 29, 2024 Assessment & Plan (1) Mild cognitive impairment: (2) Chronic indwelling Tatum catheter: (3) Complicated UTI (urinary tract infection): (4) Elevated blood pressure reading: Plan Mr. High is a 78-year-old male with past medical history significant for adrenal insufficiency on chronic steroids, bronchial asthma/COPD, obstructive sleep apnea, prior DVT/PE s/p IVC filter no longer on anticoagulation due to bleeding issues, bladder cancer s/p surgery off of Keytruda secondary to development of myocarditis, prostate cancer s/p radiation therapy, valvular heart disease ,moderate aortic valve stenosis, mild aortic regurgitation, hypertension, orthostatic hypotension, chronic anemia, mild cognitive impairment and dementia, ambulatory dysfunction ambulates with a walker, urinary incontinence with chronic Tatum, chronic venous insufficiency, CKD stage III who presented to ED 06/23 from Cardiology office due to concern for generalized weakness progressing from baseline. Per previous provider with addendum: Patient with recent hospitalization for sepsis 2/2 enterococcus UTI and discharged to [facility] for IV antibiotics. Patient requiring wheelchair and difficulty walking since the last hospitalizati on. It was noted in Cardiology OP follow up weight gain of 203 to 239 pounds. Patient off midodrine 2/2 hypertension and recently transitioned from prednisone to hydrocortisone. Patient with leaking around tatum site. Discussed with Urology that given his history and with positioning it can leak, as long as the majority of urine is in the bag and there is no sign of obstruction that this is not abnormal. 06/26 patient noted to be more anxious and inconsolable--psychiatry consulted to aid in these behaviors. Question of extreme anxiety as apart of cognitive impairment or agitated delirium. Patient started on abilify and escitalopram. Also noted that symptoms seeming started with increased dosing of hydrocortisone. Per Dr. Gillette note, recommended going back to baseline 20/10 if no improvement, and given dyer rise in anxiety/ruminations after initiating, will return back to 20/10. Pt's midline removed on 06/28/24. Currently awaiting rehab placement. Not able to return to [facility], seeking alternatives. Severe anxiety trial low dose ativan bid behavioral liaison consult, psychiatry consulted ?severe anxiety in setting of cog impairment v agitated delirium -Continue 5mg escitalopram (started 06/26) with plans to increase to 10mg daily as tolerated in 5-7 days -Continue abilify 2.5mg daily to aid with ruminations -can continued ativan prn but limit as able -2.5 IM zyprexa for behavioral emergency 06/28- stable 06/29- stable Metabolic Encephalopathy, unclear etiology History of Complicated UTI Recent Enterococcus bacteremia - completed 2 week course of IV ampicillin Progressive weakness continue PCU at this time PT/OT recommending acute rehab urine culture from 06/20 grew joanna, likely colonization await urine culture Repeat culture with low growth klebsiella and joanna -Cefuroxime BID until 07/05 -Will treat joanna given complex medical history and ongoing malignancy, 4 00mg 06/25 then 200mg for 10 days 07/05 06/28- continue abx as above 06/29-stable, continue with current regimen Chronic, intermittent hematuria Chronic indwelling tatum Bladder cancer s/p keytruda Patient follows with Urology, Dr. Prado 02/2024: "hold aspirin when bleeding is present. Chronic and intermittent nature of hematuria in the context of a an indwelling Tatum catheter is emphasized." Previous provider Spoke to Urology: leaking in small amounts is not an uncommon phenomena as long as urine is draining as a tatum doesn't create a "vaccum seal" 06/28-stable Orthostatic hypotension Midodrine discontinued due to hypertension Continue fludrocortisone Monitor blood pressure Chronic Adrenal insufficiency recently seen by Larry Valdovinos, increase hydrocortisone to 30mg in a.m. and 20mg @ 1500 x 1 week through 06/30 then go back to 20mg in morning and 10mg in afternoon per his recent note Myocarditis 2/ Keytruda follows cardiology, stable was on high dose steroids, now on routine adrenal insufficiency dosing Chronic conditions: DVT/PE S/P IVC filter off OAC due to bleeding issues Valvular heart disease: most recent echo shows mod/severe Chronic anemia CKD stage III COPD Mild cognitive impairment GERD Continue home medications as able DVT Px:Lovenox, will hold if worsening hematuria Diet: regular PCP: Deondre Hill Dispo: acute rehab Admission and Anticipated Discharge Date Admission Date: June 23, 2024 Subjective Patient was seen sitting up in bed. Alert and oriented x 3 States he actually feels better today, notes his waxing and waning mentation States that he is still having pain in his lumbosacral area, notes that the pain meds help temporarily Per case management, [facility] will not be taking him back. Seeking alternatives for placement. called and updated Review of Systems Review of Systems: All systems reviewed & are unremarkable except as noted in Subjective Physical Exam Physical Exam: General: Alert, oriented Neuro: Pt with difficulty moving in chair at bedside HEENT: NC/AT CV: RRR Resp: Breath sounds clear bilaterally, no increased effort of breathing Abdomen: Soft, nontender Extremities: No edema in lower extremities bilaterally. Results & Data Results & Data Vital Signs (Past 12 Hours) Vital Signs Temp Pulse Pulse Resp BP Pulse Ox O2 Del Method 06/29/24 11:04 36.4 C L 73 19 108/74 96 Room Air 06/29/24 07:04 36.8 C 72 19 136/76 97 Room Air 06/29/24 07:00 71 06/29/24 03:08 36.9 C 73 20 114/70 96 Room Air Diagnostic Findings Head CT 06/27/24 16:37 Clinical History: Altered mental status Technique: Axial computed tomography images were obtained of the brain without intravenous contrast. Comparison is made to the prior CT dated 11/23/2023 Findings: There is diffuse cerebral atrophy, within expected limits for the patient's age. Areas of decreased attenuation are seen within the periventricular white matter, likely representing chronic small vessel ischemic disease. There is no definite sign of acute or old infarction. No intracranial hemorrhage is evident. No definite mass lesion is seen on this noncontrast examination. There is no midline shift or other form of herniation. No hydrocephalus is seen. No fracture is identified. There is fluid in the left maxillary and sphenoid sinuses. The mastoid air cells appear clear. Impression: 1. Cerebral atrophy and chronic small vessel ischemic disease 2. Acute sinusitis Electronically signed by Piyush Andersen 06-27-2024 6:56 PM
[2024-06-30 06:20] LABS: Basophils # (auto) 0.04 K/uL (0.00-0.20); Basophils % (auto) 0.5 %; Eosinophils % (auto) 2.4 %; Immature Granulocytes # (auto) 0.08 K/uL (0.01-0.20); Lymphocytes # (auto) 2.17 K/uL (1.20-3.40); Lymphocytes % (auto) 26.4 %; Mean Corpuscular Hemoglobin 28.2 pg (25.0-34.0); Mean Corpuscular Hgb Conc 31.4 g/dL (32.0-36.0); Mean Corpuscular Volume 89.7 fL (80.0-100.0); Mean Platelet Volume 8.6 fL (9.4-12.4); Monocytes # (auto) 0.65 K/uL (0.11-0.59); Monocytes % (auto) 7.9 %; Neutrophils # (auto) 5.08 K/uL (1.40-6.50); Neutrophils % (auto) 61.8 %; Platelet Count 322 K/uL (130-400); RDW Standard Deviation 45.4 fL (36.4-46.3); White Blood Count 8.22 K/ul (4.8-10.8)
[2024-06-30 06:34] LABS: BUN Creatinine Ratio 15.4 (10-20); Calcium 8.7 mg/dl (8.6-10.3); Creatinine Clr Calc Pharmacy 66.5 ml/min; Magnesium 1.8 mg/dl (1.7-2.4); Phosphorus 3.7 mg/dl (2.5-4.9); Potassium 3.6 mmol/L (3.5-5.1)
[2024-06-30 06:54] LABS: Ferritin 434.6 ng/ml (8-388)
[2024-06-30] MEDS: IRON SUCROSE 200 MG in SODIUM CHLORIDE 0.9% 100 ML IV ONE (09:17)
--- NOTE | 2024-06-30 11:59 | Hospitalist Progress Note ---
Date of Service June 30, 2024 Assessment & Plan (1) Mild cognitive impairment: (2) Chronic indwelling Tatum catheter: (3) Complicated UTI (urinary tract infection): (4) Elevated blood pressure reading: Plan Mr. High is a 78-year-old male with past medical history significant for adrenal insufficiency on chronic steroids, bronchial asthma/COPD, obstructive sleep apnea, prior DVT/PE s/p IVC filter no longer on anticoagulation due to bleeding issues, bladder cancer s/p surgery off of Keytruda secondary to development of myocarditis, prostate cancer s/p radiation therapy, valvular heart disease ,moderate aortic valve stenosis, mild aortic regurgitation, hypertension, orthostatic hypotension, chronic anemia, mild cognitive impairment and dementia, ambulatory dysfunction ambulates with a walker, urinary incontinence with chronic Tatum, chronic venous insufficiency, CKD stage III who presented to ED 06/23 from Cardiology office due to concern for generalized weakness progressing from baseline. Per previous provider with addendum: Patient with recent hospitalization for sepsis 2/2 enterococcus UTI and discharged to [facility] for IV antibiotics. Patient requiring wheelchair and difficulty walking since the last hospitalizati on. It was noted in Cardiology OP follow up weight gain of 203 to 239 pounds. Patient off midodrine 2/2 hypertension and recently transitioned from prednisone to hydrocortisone. Patient with leaking around tatum site. Discussed with Urology that given his history and with positioning it can leak, as long as the majority of urine is in the bag and there is no sign of obstruction that this is not abnormal. 06/26 patient noted to be more anxious and inconsolable--psychiatry consulted to aid in these behaviors. Question of extreme anxiety as apart of cognitive impairment or agitated delirium. Patient started on abilify and escitalopram. Also noted that symptoms seeming started with increased dosing of hydrocortisone. Per Dr. Gillette note, recommended going back to baseline 20/10 if no improvement, and given dyer rise in anxiety/ruminations after initiating, will return back to 20/10. Pt's midline removed on 06/28/24. Currently awaiting rehab placement. Not able to return to [facility], seeking alternatives. Severe anxiety trial low dose ativan bid behavioral liaison consult, psychiatry consulted ?severe anxiety in setting of cog impairment v agitated delirium -Continue 5mg escitalopram (started 06/26) with plans to increase to 10mg daily as tolerated in 5-7 days -Continue abilify 2.5mg daily to aid with ruminations -can continued ativan prn but limit as able -2.5 IM zyprexa for behavioral emergency 06/28- stable 06/29- stable 06/30-stable Metabolic Encephalopathy, unclear etiology History of Complicated UTI Recent Enterococcus bacteremia - completed 2 week course of IV ampicillin Progressive weakness continue PCU at this time PT/OT recommending acute rehab urine culture from 06/20 grew joanna, likely colonization await urine culture Repeat culture with low growth klebsiella and joanna -Cefuroxime BID until 07/05 -Will treat joanna given complex medical history and ongoing malignancy, 400mg 06/25 then 200mg for 10 days 07/05 06/28- continue abx as above 06/29-stable, continue with current regimen 06/30- stable Chronic, intermittent hematuria Chronic indwelling tatum Bladder cancer s/p keytruda Patient follows with Urology, Dr. Prado 02/2024: "hold aspirin when bleeding is present. Chronic and intermittent nature of hematuria in the context of a an indwelling Tatum catheter is emphasized." Previous provider Spoke to Urology: leaking in small amounts is not an uncommon phenomena as long as urine is draining as a tatum doesn't create a "vaccum seal" 06/28-stable Acute on Chronic Anemia Iron Deficiency Anemia hemoglobin of 10-12 Iron studies noting low iron levels with decreased ferritin Status post 1 bag of IV Venofer 200 mg on 06/30/2024 Continue p.o. ferrous sulfate supplement Continue to monitor H&H Transfuse for hemoglobin less than 7 Orthostatic hypotension Midodrine discontinued due to hypertension Continue fludrocortisone Monitor blood pressure Chronic Adrenal insufficiency recently seen by Larry Valdovinos, increase hydrocortisone to 30mg in a.m. and 20mg @ 1500 x 1 week through 06/30 then go back to 20mg in morning and 10mg in afternoon per his recent note Myocarditis / Keytruda follows cardiology, stable was on high dose steroids, now on routine adrenal insufficiency dosing Chronic conditions: DVT/PE S/P IVC filter off OAC due to bleeding issues Valvular heart disease: most recent echo shows mod/severe Chronic anemia CKD stage III COPD Mild cognitive impairment GERD Continue home medications as able DVT Px:Lovenox, will hold if worsening hematuria Diet: regular PCP: Deondre Hill Dispo: acute rehab Admission and Anticipated Discharge Date Admission Date: June 23, 2024 Subjective patient was seen without at bedside Alert and oriented x 3 Many questions about dispo Otherwise denying acute concerns Review of Systems Review of Systems: All systems reviewed & are unremarkable except as noted in Subjective Physical Exam Physical Exam: General: Alert, oriented Neuro: Pt with difficulty moving in chair at bedside HEENT: NC/AT CV: RRR Resp: Breath sounds clear bilaterally, no increased effort of breathing Abdomen: Soft, nontender Extremities: No edema in lower extremities bilaterally. Results & Data Results & Data Vital Signs (Past 12 Hours) Vital Signs Temp Pulse Pulse Resp BP Pulse Ox O2 Del Method 06/30/24 11:52 36.4 C L 73 18 155/84 H 95 Room Air 06/30/24 08:00 69 06/30/24 08:00 Room Air 06/30/24 07:51 36.9 C 73 18 160/79 H 98 Room Air 06/30/24 04:12 36.5 C 69 18 154/78 H 98 Room Air
[2024-07-01 07:32] LABS: Basophils # (auto) 0.04 K/uL (0.00-0.20); Basophils % (auto) 0.6 %; Eosinophils % (auto) 2.8 %; Hematocrit (blood only) 35.2 % (42.0-52.0); Hemoglobin 11.2 g/dl (14.0-18.0); Immature Granulocytes # (auto) 0.03 K/uL (0.01-0.20); Immature Granulocytes % (auto) 0.4 %; Lymphocytes # (auto) 1.71 K/uL (1.20-3.40); Lymphocytes % (auto) 24.1 %; Mean Corpuscular Hemoglobin 28.4 pg (25.0-34.0); Mean Corpuscular Hgb Conc 31.8 g/dL (32.0-36.0); Mean Corpuscular Volume 89.1 fL (80.0-100.0); Mean Platelet Volume 8.4 fL (9.4-12.4); Neutrophils # (auto) 4.62 K/uL (1.40-6.50); Neutrophils % (auto) 65.1 %; Platelet Count 334 K/uL (130-400); RDW Standard Deviation 45.1 fL (36.4-46.3); Red Blood Count 3.95 M/uL (4.70-6.10)
[2024-07-01 07:42] LABS: BUN Creatinine Ratio 13.7 (10-20); Calcium 9.1 mg/dl (8.6-10.3); Creatinine Clr Calc Pharmacy 70.2 ml/min; Magnesium 1.8 mg/dl (1.7-2.4); Phosphorus 3.6 mg/dl (2.5-4.9)
--- NOTE | 2024-07-01 11:00 | Hospitalist Progress Note ---
Date of Service July 01, 2024 Assessment & Plan (1) Mild cognitive impairment: (2) Chronic indwelling Tatum catheter: (3) Complicated UTI (urinary tract infection): (4) Elevated blood pressure reading: Plan Mr. High is a 78-year-old male with past medical history significant for adrenal insufficiency on chronic steroids, bronchial asthma/COPD, obstructive sleep apnea, prior DVT/PE s/p IVC filter no longer on anticoagulation due to bleeding issues, bladder cancer s/p surgery off of Keytruda secondary to development of myocarditis, prostate cancer s/p radiation therapy, valvular heart disease ,moderate aortic valve stenosis, mild aortic regurgitation, hypertension, orthostatic hypotension, chronic anemia, mild cognitive impairment and dementia, ambulatory dysfunction ambulates with a walker, urinary incontinence with chronic Tatum, chronic venous insufficiency, CKD stage III who presented to ED 06/23 from Cardiology office due to concern for generalized weakness progressing from baseline. Per previous provider with addendum: Patient with recent hospitalization for sepsis 2/2 enterococcus UTI and discharged to [facility] for IV antibiotics. Patient requiring wheelchair and difficulty walking since the last hospitalizati on. It was noted in Cardiology OP follow up weight gain of 203 to 239 pounds. Patient off midodrine 2/2 hypertension and recently transitioned from prednisone to hydrocortisone. Patient with leaking around tatum site. Discussed with Urology that given his history and with positioning it can leak, as long as the majority of urine is in the bag and there is no sign of obstruction that this is not abnormal. 06/26 patient noted to be more anxious and inconsolable--psychiatry consulted to aid in these behaviors. Question of extreme anxiety as apart of cognitive impairment or agitated delirium. Patient started on abilify and escitalopram. Also noted that symptoms seeming started with increased dosing of hydrocortisone. Per Dr. Gillette note, recommended going back to baseline 20/10 if no improvement, and given dyer rise in anxiety/ruminations after initiating, will return back to 20/10. Pt's midline removed on 06/28/24. Currently awaiting rehab placement. Not able to return to [facility], seeking alternatives. Severe anxiety trial low dose ativan bid behavioral liaison consult, psychiatry consulted ?severe anxiety in setting of cog impairment v agitated delirium -Continue 5mg escitalopram (started 06/26) with plans to increase to 10mg daily as tolerated in 5-7 days -Continue abilify 2.5mg daily to aid with ruminations -can continued ativan prn but limit as able -2.5 IM zyprexa for behavioral emergency Stable Metabolic Encephalopathy, unclear etiology History of Complicated UTI Recent Enterococcus bacteremia - completed 2 week course of IV ampicillin Progressive weakness continue PCU at this time PT/OT recommending acute rehab urine culture from 06/20 grew joanna, likely colonization await urine culture Repeat culture with low growth klebsiella and joanna -Cefuroxime BID until 07/05 -Will treat joanna given complex medical history and ongoing malignancy, 400mg 06/25 then 200mg for 10 days 07/05 Stable Chronic, intermittent hematuria Chronic indwelling tatum Bladder cancer s/p keytruda Patient follows with Urology, Dr. Prado 02/2024: "hold aspirin when bleeding is present. Chronic and intermittent nature of hematuria in the context of a an indwelling Tatum catheter is emphasized." Previous provider Spoke to Urology: leaking in small amounts is not an uncommon phenomena as long as urine is draining as a tatum doesn't create a "vaccum seal" patient's requesting urology consult for definitive management on 07/01/2024. Urology consulted, appreciate recs-had discussion with patient and and noted the following per Dr Calvin Gtz: " Catheter is patent so suspect he is having bladder spasms. He is already on oxybutynin so other options are limited. I explained that upsizing the catheter typically does not change this symptom. Unfortunately, there are not many options for him at this point given that he requires the catheter and he is already on a medication to prevent leakage. Discussed expectations with patient and . Follow-up can be with primary urologist." Acute on Chronic Anemia Iron Deficiency Anemia hemoglobin of 10-12 Iron studies noting low iron levels with decreased ferritin Status post 1 bag of IV Venofer 200 mg on 06/30/2024 Continue p.o. 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, stable was on high dose steroids, now on routine adrenal insufficiency dosing Chronic conditions: Valvular heart disease: most recent echo shows mod/severe Chronic anemia CKD stage III COPD Mild cognitive impairment GERD Continue home medications as able DVT Px:Lovenox, will hold if worsening hematuria Diet: regular PCP: Deondre Hill Dispo: acute rehab Admission and Anticipated Discharge Date Admission Date: June 23, 2024 Subjective patient was seen laying in bed Alert and oriented x 3 Asking about dispo Later contacted by nursing that patient's was concerned about right thigh pain that she states is new since he has been here wondering if he has a blood clot. Patient does have a history of blood clots in the lower extremity and has an IVC filter and has also been getting Lovenox every night since he has been here Review of Systems Review of Systems: All systems reviewed & are unremarkable except as noted in Subjective Physical Exam Physical Exam: General: Alert, oriented Neuro: Pt with difficulty moving HEENT: NC/AT CV: RRR, +murmur Resp: Breath sounds clear bilaterally, no increased effort of breathing Abdomen: Soft, nontender Extremities: edema in RLE>LLE extremities bilaterally. Results & Data Results & Data Vital Signs (Past 12 Hours) Vital Signs Temp Pulse Resp BP Pulse Ox O2 Del Method 07/01/24 06:55 36.6 C 70 18 170/90 H 99 Room Air
--- NOTE | 2024-07-01 13:17 | Urology Consultation ---
Date of Consultation July 01, 2024 Assessment & Plan (1) Chronic indwelling Devlin catheter: (2) Primary bladder malignant neoplasm: Plan 78-year-old male with a history of [place] 8 prostate cancer status post radiation therapy in 2015. He did have a HoLEP prior to this due to BPH with bladder outlet obstruction. He has had subsequent development of bladder cancer and follows with Dr. Aguiar. Most recently seen as a consult on 12/02/2023. He had previously been on Keytruda for his disease but had to go off this secondary to myocarditis. Currently admitted with a failure to thrive picture. Urology consulted for leakage around the catheter. Catheter is patent so suspect he is having bladder spasms. He is already on oxybutynin so other options are limited. I explained that upsizing the catheter typically does not change this symptom. Unfortunately, there are not many options for him at this point given that he requires the catheter and he is already on a medication to prevent leakage. Discussed expectations with patient and . Follow-up can be with primary urologist. Urology to sign off History of Present Illness Attending Physician: Breonna Pineda MD History of Present Illness 78-year-old male with a history of [place] 8 prostate cancer status post radiation therapy in 2015. He did have a HoLEP prior to this due to BPH with bladder outlet obstruction. He has had subsequent development of bladder cancer and follows with Dr. Aguiar. Most recently seen as a consult on 12/02/2023. He had previously been on Keytruda for his disease but had to go off this secondary to myocarditis. He is currently admitted today due to failure to thrive. Afebrile with stable vitals on most recent check. Labs show white blood cell count of 7, hemoglobin 11.2, creatinine of 1.17. Urine culture grew out Sylvia and Klebsiella but he is likely colonized he is currently on cefuroxime and fluconazole. He did have a CT scan of the abdomen and pelvis roughly 1 month ago which showed no hydronephrosis and a Devlin catheter in place. His reports that he now follows with Dr. Cabral and Dr. Prado with [facility]. They have told him that he will be catheter bound for the rest of his life due to significant incontinence. He has been having some leakage around the catheter recently. Allergies Allergy/AdvReac Type Severity Reaction Status Date / Time Iodinated Contrast Media Allergy Severe LOVERSOL---CARDIAC Verified 06/22/24 13:[address] CONTRAST clindamycin Allergy Intermediate Rash Verified 06/22/24 13:25 chocolate flavor AdvReac Severe DIARRHEA/ Verified 06/22/24 13:25 Cannot take, interacts w/ medications. pembrolizumab [From [employer]] AdvReac Intermediate myocarditis Verified 06/22/24 13:25 Home Medications Medication Instructions Recorded Confirmed Type sulfamethoxazole 800 1 tab PO UD 05/31/24 06/23/24 History mg-trimethoprim 160 mg tablet Senna-C 1 tab PO DAILY Constipation #30 06/08/24 06/23/24 Rx tabs acetaminophen 325 mg tablet 650 mg (2 x 325 mg) PO Q4H PRN 06/08/24 06/23/24 Rx fever or pain #30 tabs albuterol sulfate 90 mcg/actuation 2 puff inhalation Q4H PRN 06/08/24 06/23/24 Rx aerosol inhaler Shortness Of Breath Or Wheezing #16 grams ascorbic acid (vitamin C) 1,000 mg 1,000 mg PO DAILY #30 tabs 06/08/24 06/23/24 Rx tablet aspirin 81 mg tablet,delayed 81 mg PO DAILY #30 tabs 06/08/24 06/23/24 Rx release cholecalciferol (vitamin D3) 125 125 mcg PO DAILY #30 tabs 06/08/24 06/23/24 Rx mcg (5,000 unit) tablet (Vitamin D3) cyanocobalamin (vitamin B-12) 1,000 mcg PO DAILY #30 tabs 06/08/24 06/23/24 Rx 1,000 mcg tablet epinephrine 0.3 mg/0.3 mL 0.3 mg (0.3 mL) IM UD PRN 06/08/24 06/23/24 Rx injection, auto-injector Anaphylaxis #3 ea ferrous sulfate 325 mg (65 mg 325 mg PO DAILY #30 tabs 06/08/24 06/23/24 Rx iron) tablet,delayed release fludrocortisone 0.1 mg tablet 0.1 mg PO DAILY #30 tabs 06/08/24 06/23/24 Rx fluticasone fur. 200 mcg-umeclid 1 inh inhalation DAILY #1 ea 06/08/24 06/23/24 Rx 62.5 mcg-vilant 25 mcg inhalat.powder (Trelegy Ellipta) lidocaine 5 % topical patch 2 patch transdermal DAILY #20 ea 06/08/24 06/23/24 Rx magnesium chloride 64 mg 64 mg PO BID #60 tabs 06/08/24 06/23/24 Rx (magnesium chloride) tablet,delayed release memantine 10 mg tablet 10 mg PO BID #60 tabs 06/08/24 06/23/24 Rx multivitamin with minerals-folic 1 tab PO DAILY #30 tabs 06/08/24 06/23/24 Rx acid 200 mcg chewable tablet (Multivitamin Gummies) nystatin 100,000 unit/gram topical 1 applic EXT BID #30 grams 06/08/24 06/23/24 Rx powder (Nystop) omeprazole 20 mg capsule,delayed 20 mg PO DAILY #30 caps 06/08/24 06/23/24 Rx release solifenacin 5 mg tablet 5 mg PO DAILY #30 tabs 06/08/24 06/23/24 Rx hydrocortisone 10 mg tablet 20 mg PO 1500 06/23/24 06/23/24 History (Cortef) hydrocortisone 10 mg tablet 30 mg PO QAM 06/23/24 06/23/24 History (Cortef) Patient History Medical History Fracture of multiple teeth Sacral pressure sore Ambulatory dysfunction Generalized weakness Anemia Urethral stricture Ascending aorta dilation Mild- 4.4cm per 11/2022 ECHO Obesity Venous insufficiency (chronic) (peripheral) Radiation cystitis Kidney stones x1 episode. no surgery needed. Cardiac arrest hx r/t IV Contrast Dye "many years ago" Allergic rhinitis Contrast media allergy Hiatal hernia Surgical History S/P cataract extraction History of right cataract extraction History of colonoscopy H/O sinus surgery History of appendectomy S/P TURP (status post transurethral resection of prostate) Status post cystoscopy (11/07/13) Family History Father Prostate cancer Brother Prostate cancer Mother Thyroid cancer Cancer Other No family history of adverse response to anesthesia Social History Smoking Status: Never smoker Tobacco Type: Cigarettes Second Hand Exposure: Yes; Do You Dip or Chew Tobacco: No; Tobacco Cessation Education Requested by Patient: No Hx Alcohol Use: No Hx Substance Use: No Preferred Language: Belarusian Communication Ability: Impaired Visual Impairment: Limited Hearing Ability: Normal 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 Required: No Beliefs That Will Affect Care: None marital status: Current Living Situation: Spouse Current Living Situation Comment: at home with current occupational status: retired How many Children do You have: 0 Other Information That Helps Us Care for You: No Feels Safe at Home: Yes Safety Concerns: Feels Safe At This Time Diet: regular during the past year weight has: decreased > 10 lbs Seatbelt Use: always Do you think of yourself as: straight/heterosexual Gender Identity: Male Assistive Devices: Bedside Commode, Hospital Bed and Walker Physical Exam Physical Exam: General: Alert and oriented, no acute distress HEENT: Normocephalic, mucous membranes moist Pulmonary: Nonlabored respirations Abdomen: Nondistended : Devlin catheter draining yellow urine Extremities: Moves all 4 spontaneously Neuro: No gross deficits Skin: Warm, dry, no rashes noted Results & Data Vital Signs (Past 12 Hours) Vital Signs Temp Pulse Resp BP Pulse Ox O2 Del Method 07/01/24 06:55 36.6 C 70 18 170/90 H 99 Room Air PG Care Time/CCT Total # of Minutes Spent Total Time Spent with Patient: Total time spent is greater than 50% in coordination of care (as documented) at patient's floor/unit and/or counseling patient: Coding Level of Care Code 88276 INT INP/OBS CARE MIN Diagnoses Chronic indwelling Devlin catheter Z97.8 Primary bladder malignant neoplasm C67.9
--- NOTE | 2024-07-01 16:08 | Ultrasound Report ---
EXAMINATION: Ultrasound venous Dopplerlower extremity right CLINICAL HISTORY: Right leg pain after fall PRIORS: 09/06/2023, 12/26/2022 TECHNIQUE: Ultrasound interrogation of the deep venous structures was performed with grayscale, color Doppler, compression and augmentation. FINDINGS: The right common femoral, superficial femoral, saphenous, proximal popliteal and tibial veins demonstrate normal compressibility, frequency and augmentation. Little to no flow noted in one of the 2 distal popliteal veins. IMPRESSION: 1. No sonographic evidence of acute deep venous thrombosis in the right lower extremities. 2. The possibility of chronic thrombus within the distal popliteal vein is raised with minimal to no blood flow identified. Electronically signed by Joelle Toribio 07-01-2024 4:08 PM
[2024-07-02 08:34] LABS: Basophils # (auto) 0.04 K/uL (0.00-0.20); Basophils % (auto) 0.5 %; Eosinophils # (auto) 0.13 K/uL (0.00-0.50); Eosinophils % (auto) 1.6 %; Hematocrit (blood only) 33.6 % (42.0-52.0); Hemoglobin 10.9 g/dl (14.0-18.0); Immature Granulocytes # (auto) 0.05 K/uL (0.01-0.20); Immature Granulocytes % (auto) 0.6 %; Lymphocytes # (auto) 1.95 K/uL (1.20-3.40); Lymphocytes % (auto) 24.5 %; Mean Corpuscular Hemoglobin 28.6 pg (25.0-34.0); Mean Corpuscular Hgb Conc 32.4 g/dL (32.0-36.0); Mean Corpuscular Volume 88.2 fL (80.0-100.0); Mean Platelet Volume 8.4 fL (9.4-12.4); Monocytes # (auto) 0.68 K/uL (0.11-0.59); Monocytes % (auto) 8.5 %; Neutrophils # (auto) 5.11 K/uL (1.40-6.50); Neutrophils % (auto) 64.3 %; Platelet Count 332 K/uL (130-400); RDW Coefficient of Variation 14.1 % (11.5-14.5); RDW Standard Deviation 45.1 fL (36.4-46.3); Red Blood Count 3.81 M/uL (4.70-6.10); White Blood Count 7.96 K/ul (4.8-10.8)
[2024-07-02 08:50] LABS: BUN Creatinine Ratio 12.9 (10-20); Calcium 8.8 mg/dl (8.6-10.3); Creatinine Clr Calc Pharmacy 70.8 ml/min; Potassium 3.4 mmol/L (3.5-5.1)
--- NOTE | 2024-07-02 11:53 | Hospitalist Progress Note ---
Date of Service July 02, 2024 Assessment & Plan (1) Mild cognitive impairment: (2) Chronic indwelling Tatum catheter: (3) Complicated UTI (urinary tract infection): (4) Elevated blood pressure reading: Plan Mr. High is a 78-year-old male with past medical history significant for adrenal insufficiency on chronic steroids, bronchial asthma/COPD, obstructive sleep apnea, prior DVT/PE s/p IVC filter no longer on anticoagulation due to bleeding issues, bladder cancer s/p surgery off of Keytruda secondary to development of myocarditis, prostate cancer s/p radiation therapy, valvular heart disease ,moderate aortic valve stenosis, mild aortic regurgitation, hypertension, orthostatic hypotension, chronic anemia, mild cognitive impairment and dementia, ambulatory dysfunction ambulates with a walker, urinary incontinence with chronic Tatum, chronic venous insufficiency, CKD stage III who presented to ED 06/23 from Cardiology office due to concern for generalized weakness progressing from baseline. Per previous provider with addendum: Patient with recent hospitalization for sepsis 2/2 enterococcus UTI and discharged to [facility] for IV antibiotics. Patient requiring wheelchair and difficulty walking since the last hospitalizati on. It was noted in Cardiology OP follow up weight gain of 203 to 239 pounds. Patient off midodrine 2/2 hypertension and recently transitioned from prednisone to hydrocortisone. Patient with leaking around tatum site. Discussed with Urology that given his history and with positioning it can leak, as long as the majority of urine is in the bag and there is no sign of obstruction that this is not abnormal. 06/26 patient noted to be more anxious and inconsolable--psychiatry consulted to aid in these behaviors. Question of extreme anxiety as apart of cognitive impairment or agitated delirium. Patient started on abilify and escitalopram. Also noted that symptoms seeming started with increased dosing of hydrocortisone. Per Dr. Gillette note, recommended going back to baseline 20/10 if no improvement, and given dyer rise in anxiety/ruminations after initiating, will return back to 20/10. Pt's midline removed on 06/28/24. Currently awaiting rehab placement. Not able to return to [facility], seeking alternatives. Severe anxiety trial low dose ativan bid behavioral liaison consult, psychiatry consulted ?severe anxiety in setting of cog impairment v agitated delirium -Continue 5mg escitalopram (started 06/26) with plans to increase to 10mg daily as tolerated in 5-7 days -Continue abilify 2.5mg daily to aid with ruminations -can continued ativan prn but limit as able -2.5 IM zyprexa for behavioral emergency Stable Metabolic Encephalopathy, unclear etiology History of Complicated UTI Recent Enterococcus bacteremia - completed 2 week course of IV ampicillin Progressive weakness continue PCU at this time PT/OT recommending acute rehab urine culture from 06/20 grew joanna, likely colonization await urine culture Repeat culture with low growth klebsiella and joanna -Cefuroxime BID until 07/05 -Will treat joanna given complex medical history and ongoing malignancy, 400mg 06/25 then 200mg for 10 days 07/05 Stable Chronic, intermittent hematuria Chronic indwelling tatum Bladder cancer s/p keytruda Patient follows with Urology, Dr. Prado 02/2024: "hold aspirin when bleeding is present. Chronic and intermittent nature of hematuria in the context of a an indwelling Tatum catheter is emphasized." Previous provider Spoke to Urology: leaking in small amounts is not an uncommon phenomena as long as urine is draining as a tatum doesn't create a "vaccum seal" patient's requesting urology consult for definitive management on 07/01/2024. Urology consulted, appreciate recs-had discussion with patient and and noted the following per Dr Calvin Gtz: " Catheter is patent so suspect he is having bladder spasms. He is already on oxybutynin so other options are limited. I explained that upsizing the catheter typically does not change this symptom. Unfortunately, there are not many options for him at this point given that he requires the catheter and he is already on a medication to prevent leakage. Discussed expectations with patient and . Follow-up can be with primary urologist." Acute on Chronic Anemia Iron Deficiency Anemia hemoglobin of 10-12 Iron studies noting low iron levels with decreased ferritin Status post 1 bag of IV Venofer 200 mg on 06/30/2024 Continue p.o. 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 and 20mg @ 1500 x 1 week through 06/30 then go back to 20mg in morning and 10mg in afternoon per his recent note Myocarditis 2/ Keytruda follows cardiology, stable was on high dose steroids, now on routine adrenal insufficiency dosing Chronic conditions: Valvular heart disease: most recent echo shows mod/severe Chronic anemia CKD stage III COPD Mild cognitive impairment GERD Continue home medications as able DVT Px:Lovenox, will hold if worsening hematuria Diet: regular PCP: Deondre Hill Dispo: acute rehab Admission and Anticipated Discharge Date Admission Date: June 23, 2024 Subjective patient was seen in the a.m. Slightly confused, fixated on a meeting that is supposed to happen on Wednesday States pain in his right lower extremity is better Review of Systems Review of Systems: All systems reviewed & are unremarkable except as noted in Subjective Physical Exam Physical Exam: General: Alert, oriented Neuro: Pt with difficulty moving HEENT: NC/AT CV: RRR, +murmur Resp: Breath sounds clear bilaterally, no increased effort of breathing Abdomen: Soft, nontender Extremities: edema in RLE>LLE extremities bilaterally. Results & Data Results & Data Vital Signs (Past 12 Hours) Vital Signs Temp Pulse Resp BP Pulse Ox O2 Del Method 07/02/24 08:19 36.9 C 72 16 132/75 98 Room Air
[2024-07-03 06:25] LABS: Basophils # (auto) 0.03 K/uL (0.00-0.20); Basophils % (auto) 0.4 %; Eosinophils # (auto) 0.19 K/uL (0.00-0.50); Eosinophils % (auto) 2.5 %; Hematocrit (blood only) 34.4 % (42.0-52.0); Hemoglobin 11.1 g/dl (14.0-18.0); Immature Granulocytes # (auto) 0.03 K/uL (0.01-0.20); Immature Granulocytes % (auto) 0.4 %; Lymphocytes # (auto) 2.12 K/uL (1.20-3.40); Lymphocytes % (auto) 28.1 %; Mean Corpuscular Hemoglobin 28.5 pg (25.0-34.0); Mean Corpuscular Hgb Conc 32.3 g/dL (32.0-36.0); Mean Corpuscular Volume 88.4 fL (80.0-100.0); Mean Platelet Volume 8.6 fL (9.4-12.4); Monocytes # (auto) 0.56 K/uL (0.11-0.59); Monocytes % (auto) 7.4 %; Neutrophils # (auto) 4.61 K/uL (1.40-6.50); Neutrophils % (auto) 61.2 %; Platelet Count 353 K/uL (130-400); RDW Coefficient of Variation 14.3 % (11.5-14.5); RDW Standard Deviation 45.7 fL (36.4-46.3); Red Blood Count 3.89 M/uL (4.70-6.10); White Blood Count 7.54 K/ul (4.8-10.8)
[2024-07-03 06:43] LABS: BUN Creatinine Ratio 14.2 (10-20); Calcium 9.1 mg/dl (8.6-10.3); Creatinine Clr Calc Pharmacy 64.7 ml/min; Phosphorus 3.6 mg/dl (2.5-4.9); Potassium 3.5 mmol/L (3.5-5.1)
[2024-07-03] MEDS: POLYETHYLENE (MIRALAX) 17 GM PACK PO PRN (11:04)
--- NOTE | 2024-07-03 16:27 | Hospitalist Progress Note ---
Date of Service July 03, 2024 Assessment & Plan (1) Mild cognitive impairment: (2) Chronic indwelling Tatum catheter: (3) Complicated UTI (urinary tract infection): (4) Elevated blood pressure reading: Plan Mr. High is a 78-year-old male with past medical history significant for adrenal insufficiency on chronic steroids, bronchial asthma/COPD, obstructive sleep apnea, prior DVT/PE s/p IVC filter no longer on anticoagulation due to bleeding issues, bladder cancer s/p surgery off of Keytruda secondary to development of myocarditis, prostate cancer s/p radiation therapy, valvular heart disease ,moderate aortic valve stenosis, mild aortic regurgitation, hypertension, orthostatic hypotension, chronic anemia, mild cognitive impairment and dementia, ambulatory dysfunction ambulates with a walker, urinary incontinence with chronic Tatum, chronic venous insufficiency, CKD stage III who presented to ED 06/23 from Cardiology office due to concern for generalized weakness progressing from baseline. Per previous provider with addendum: Patient with recent hospitalization for sepsis 2/2 enterococcus UTI and discharged to [facility] for IV antibiotics. Patient requiring wheelchair and difficulty walking since the last hospitalizati on. It was noted in Cardiology OP follow up weight gain of 203 to 239 pounds. Patient off midodrine 2/2 hypertension and recently transitioned from prednisone to hydrocortisone. Patient with leaking around tatum site. Discussed with Urology that given his history and with positioning it can leak, as long as the majority of urine is in the bag and there is no sign of obstruction that this is not abnormal. 06/26 patient noted to be more anxious and inconsolable--psychiatry consulted to aid in these behaviors. Question of extreme anxiety as apart of cognitive impairment or agitated delirium. Patient started on abilify and escitalopram. Also noted that symptoms seeming started with increased dosing of hydrocortisone. Per Dr. Gillette note, recommended going back to baseline 20/10 if no improvement, and given dyer rise in anxiety/ruminations after initiating, will return back to 20/10. Pt's midline removed on 06/28/24. Currently awaiting rehab placement. Not able to return to [facility], seeking alternatives. Severe anxiety trial low dose ativan bid behavioral liaison consult, psychiatry consulted ?severe anxiety in setting of cog impairment v agitated delirium -Continue 5mg escitalopram (started 06/26) with plans to increase to 10mg daily as tolerated in 5-7 days -Continue abilify 2.5mg daily to aid with ruminations -can continued ativan prn but limit as able -2.5 IM zyprexa for behavioral emergency Stable Metabolic Encephalopathy, unclear etiology History of Complicated UTI Recent Enterococcus bacteremia - completed 2 week course of IV ampicillin Progressive weakness continue PCU at this time PT/OT recommending acute rehab urine culture from 06/20 grew joanna, likely colonization await urine culture Repeat culture with low growth klebsiella and joanna -Cefuroxime BID until 07/05 -Will treat joanna given complex medical history and ongoing malignancy, 400mg 06/25 then 200mg for 10 days 07/05 Stable Chronic, intermittent hematuria Chronic indwelling tatum Bladder cancer s/p keytruda Patient follows with Urology, Dr. Prado 02/2024: "hold aspirin when bleeding is present. Chronic and intermittent nature of hematuria in the context of a an indwelling Tatum catheter is emphasized." Previous provider Spoke to Urology: leaking in small amounts is not an uncommon phenomena as long as urine is draining as a tatum doesn't create a "vaccum seal" patient's requesting urology consult for definitive management on 07/01/2024. Urology consulted, appreciate recs-had discussion with patient and and noted the following per Dr Calvin Gtz: " Catheter is patent so suspect he is having bladder spasms. He is already on oxybutynin so other options are limited. I explained that upsizing the catheter typically does not change this symptom. Unfortunately, there are not many options for him at this point given that he requires the catheter and he is already on a medication to prevent leakage. Discussed expectations with patient and . Follow-up can be with primary urologist." Acute on Chronic Anemia Iron Deficiency Anemia hemoglobin of 10-12 Iron studies noting low iron levels with decreased ferritin Status post 1 bag of IV Venofer 200 mg on 06/30/2024 Continue p.o. 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 was encouraged about finding out if he will get placement today Unsure if he has had a bowel movement Per nursing it has been sometime we will get as needed MiraLAX today per case management search for bed still continues Review of Systems Review of Systems: All systems reviewed & are unremarkable except as noted in Subjective Physical Exam Physical Exam: General: Alert, oriented Neuro: Pt with difficulty moving HEENT: NC/AT CV: RRR, +murmur Resp: Breath sounds clear bilaterally, no increased effort of breathing Abdomen: Soft, nontender Extremities: edema in RLE>LLE extremities bilaterally. Results & Data Results & Data Vital Signs (Past 12 Hours) Vital Signs Temp Pulse Resp BP Pulse Ox O2 Del Method 07/03/24 13:58 36.6 C 67 16 117/66 97 Room Air 07/03/24 07:05 36.8 C 73 16 147/77 H 97 Room Air
[2024-07-04 09:16] LABS: Basophils # (auto) 0.03 K/uL (0.00-0.20); Basophils % (auto) 0.5 %; Eosinophils # (auto) 0.24 K/uL (0.00-0.50); Eosinophils % (auto) 3.7 %; Hematocrit (blood only) 34.4 % (42.0-52.0); Hemoglobin 10.9 g/dl (14.0-18.0); Immature Granulocytes # (auto) 0.03 K/uL (0.01-0.20); Immature Granulocytes % (auto) 0.5 %; Lymphocytes # (auto) 1.87 K/uL (1.20-3.40); Lymphocytes % (auto) 28.8 %; Mean Corpuscular Hemoglobin 28.5 pg (25.0-34.0); Mean Corpuscular Hgb Conc 31.7 g/dL (32.0-36.0); Mean Corpuscular Volume 89.8 fL (80.0-100.0); Mean Platelet Volume 8.5 fL (9.4-12.4); Monocytes # (auto) 0.54 K/uL (0.11-0.59); Monocytes % (auto) 8.3 %; Neutrophils # (auto) 3.79 K/uL (1.40-6.50); Neutrophils % (auto) 58.2 %; Platelet Count 345 K/uL (130-400); RDW Coefficient of Variation 14.3 % (11.5-14.5); RDW Standard Deviation 46.1 fL (36.4-46.3); Red Blood Count 3.83 M/uL (4.70-6.10)
[2024-07-04 09:47] LABS: BUN Creatinine Ratio 13.9 (10-20); Calcium 8.9 mg/dl (8.6-10.3); Creatinine Clr Calc Pharmacy 67.2 ml/min; Phosphorus 3.5 mg/dl (2.5-4.9); Potassium 3.4 mmol/L (3.5-5.1)
--- NOTE | 2024-07-04 12:35 | Hospitalist Progress Note ---
Date of Service July 04, 2024 Assessment & Plan (1) Mild cognitive impairment: (2) Chronic indwelling Tatum catheter: (3) Complicated UTI (urinary tract infection): (4) Elevated blood pressure reading: Plan Mr. High is a 78-year-old male with past medical history significant for adrenal insufficiency on chronic steroids, bronchial asthma/COPD, obstructive sleep apnea, prior DVT/PE s/p IVC filter no longer on anticoagulation due to bleeding issues, bladder cancer s/p surgery off of Keytruda secondary to development of myocarditis, prostate cancer s/p radiation therapy, valvular heart disease ,moderate aortic valve stenosis, mild aortic regurgitation, hypertension, orthostatic hypotension, chronic anemia, mild cognitive impairment and dementia, ambulatory dysfunction ambulates with a walker, urinary incontinence with chronic Tatum, chronic venous insufficiency, CKD stage III who presented to ED 06/23 from Cardiology office due to concern for generalized weakness progressing from baseline. Per previous provider with addendum: Patient with recent hospitalization for sepsis 2/2 enterococcus UTI and discharged to [facility] for IV antibiotics. Patient requiring wheelchair and difficulty walking since the last hospitalizati on. It was noted in Cardiology OP follow up weight gain of 203 to 239 pounds. Patient off midodrine 2/2 hypertension and recently transitioned from prednisone to hydrocortisone. Patient with leaking around tatum site. Discussed with Urology that given his history and with positioning it can leak, as long as the majority of urine is in the bag and there is no sign of obstruction that this is not abnormal. 06/26 patient noted to be more anxious and inconsolable--psychiatry consulted to aid in these behaviors. Question of extreme anxiety as apart of cognitive impairment or agitated delirium. Patient started on abilify and escitalopram. Also noted that symptoms seeming started with increased dosing of hydrocortisone. Per Dr. Gillette note, recommended going back to baseline 20/10 if no improvement, and given dyer rise in anxiety/ruminations after initiating, will return back to 20/10. Pt's midline removed on 06/28/24. Currently awaiting rehab placement. Not able to return to [facility], seeking alternatives. Severe anxiety trial low dose ativan bid behavioral liaison consult, psychiatry consulted ?severe anxiety in setting of cog impairment v agitated delirium -Continue 5mg escitalopram (started 06/26) with plans to increase to 10mg daily as tolerated in 5-7 days -Continue abilify 2.5mg daily to aid with ruminations -can continued ativan prn but limit as able -2.5 IM zyprexa for behavioral emergency Stable Metabolic Encephalopathy, unclear etiology History of Complicated UTI Recent Enterococcus bacteremia - completed 2 week course of IV ampicillin Progressive weakness continue PCU at this time PT/OT recommending acute rehab urine culture from 06/20 grew joanna, likely colonization await urine culture Repeat culture with low growth klebsiella and joanna -Cefuroxime BID until 07/05 -Will treat joanna given complex medical history and ongoing malignancy, 400mg 06/25 then 200mg for 10 days 07/05 Stable Chronic, intermittent hematuria Chronic indwelling tatum Bladder cancer s/p keytruda Patient follows with Urology, Dr. Prado 02/2024: "hold aspirin when bleeding is present. Chronic and intermittent nature of hematuria in the context of a an indwelling Tatum catheter is emphasized." Previous provider Spoke to Urology: leaking in small amounts is not an uncommon phenomena as long as urine is draining as a tatum doesn't create a "vaccum seal" patient's requesting urology consult for definitive management on 07/01/2024. Urology consulted, appreciate recs-had discussion with patient and and noted the following per Dr Calvin Gtz: " Catheter is patent so suspect he is having bladder spasms. He is already on oxybutynin so other options are limited. I explained that upsizing the catheter typically does not change this symptom. Unfortunately, there are not many options for him at this point given that he requires the catheter and he is already on a medication to prevent leakage. Discussed expectations with patient and . Follow-up can be with primary urologist." Acute on Chronic Anemia Iron Deficiency Anemia hemoglobin of 10-12 Iron studies noting low iron levels with decreased ferritin Status post 1 bag of IV Venofer 200 mg on 06/30/2024 Continue p.o. 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, stable was on high dose steroids, now on routine adrenal insufficiency dosing Chronic conditions: Valvular heart disease: most recent echo shows mod/severe Chronic anemia CKD stage III COPD Mild cognitive impairment GERD Continue home medications as able DVT Px:Lovenox, will hold if worsening hematuria Diet: regular PCP: Deondre Hill Dispo: acute rehab Admission and Anticipated Discharge Date Admission Date: June 23, 2024 Subjective patient was seen with his lunch tray in front of him He was alert and oriented x 3 at the time of exam Concerned about discharge and dispo and where he will be heading Otherwise denies acute concerns Review of Systems Review of Systems: All systems reviewed & are unremarkable except as noted in Subjective Physical Exam Physical Exam: General: Alert, oriented Neuro: Pt with difficulty moving HEENT: NC/AT CV: RRR, +murmur Resp: Breath sounds clear bilaterally, no increased effort of breathing Abdomen: Soft, nontender Extremities: edema in RLE>LLE extremities bilaterally. Results & Data Results & Data Vital Signs (Past 12 Hours) Vital Signs Temp Pulse Resp BP Pulse Ox O2 Del Method 07/04/24 07:07 36.7 C 70 16 146/80 H 98 Room Air
[2024-07-05 07:11] LABS: Basophils # (auto) 0.03 K/uL (0.00-0.20); Basophils % (auto) 0.4 %; Eosinophils # (auto) 0.23 K/uL (0.00-0.50); Eosinophils % (auto) 2.7 %; Hematocrit (blood only) 34.1 % (42.0-52.0); Hemoglobin 10.9 g/dl (14.0-18.0); Immature Granulocytes # (auto) 0.05 K/uL (0.01-0.20); Immature Granulocytes % (auto) 0.6 %; Lymphocytes # (auto) 1.91 K/uL (1.20-3.40); Lymphocytes % (auto) 22.6 %; Mean Corpuscular Hemoglobin 28.7 pg (25.0-34.0); Mean Corpuscular Volume 89.7 fL (80.0-100.0); Mean Platelet Volume 8.5 fL (9.4-12.4); Monocytes # (auto) 0.64 K/uL (0.11-0.59); Monocytes % (auto) 7.6 %; Neutrophils # (auto) 5.61 K/uL (1.40-6.50); Neutrophils % (auto) 66.1 %; Platelet Count 321 K/uL (130-400); RDW Coefficient of Variation 14.2 % (11.5-14.5); White Blood Count 8.47 K/ul (4.8-10.8)
[2024-07-05 07:31] LABS: BUN Creatinine Ratio 12.2 (10-20); Calcium 8.9 mg/dl (8.6-10.3); Creatinine Clr Calc Pharmacy 65.9 ml/min; Magnesium 1.9 mg/dl (1.7-2.4); Phosphorus 3.6 mg/dl (2.5-4.9); Potassium 3.6 mmol/L (3.5-5.1)
--- NOTE | 2024-07-05 16:53 | Hospitalist Progress Note ---
Date of Service July 05, 2024 Assessment & Plan (1) Mild cognitive impairment: (2) Chronic indwelling Tatum catheter: (3) Complicated UTI (urinary tract infection): (4) Elevated blood pressure reading: Plan Mr. High is a 78 yo M with PMH of adrenal insufficiency on chronic steroids, bronchial asthma/COPD, obstructive sleep apnea, prior DVT/PE s/p IVC filter no longer on anticoagulation due to bleeding issues, bladder cancer s/p surgery off of Keytruda secondary to development of myocarditis, prostate cancer s/p radiation therapy, valvular heart disease ,moderate aortic valve stenosis, mild aortic regurgitation, hypertension, orthostatic hypotension, chronic anemia, mild cognitive impairment and dementia, ambulatory dysfunction ambulates with a walker, urinary incontinence with chronic Tatum, chronic venous insufficiency, CKD stage III who presented to ED 06/23 from Cardiology office due to concern for generalized weakness progressing from baseline. Per previous provider with addendum: Patient with recent hospitalization for sepsis 2/2 enterococcus UTI and discharged to [facility] for IV antibiotics. Patient requiring wheelchair and difficulty walking since the last hospitalization. It was noted in Cardiology OP follow up weight gain of 203 to 239 pounds. Patient off midodrine 2/2 hypertension and recently transitioned from prednisone to hydrocortisone. Patient with leaking around tatum site. Discussed with Urology that given his history and with positioning it can leak, as long as the majority of urine is in the bag and there is no sign of obstruction that this is not abnormal. 06/26 patient noted to be more anxious and inconsolable--psychiatry consulted to aid in these behaviors. Question of extreme anxiety as apart of cognitive impairment or agitated delirium. Patient started on abilify and escitalopram. Also noted that symptoms seeming started with increased dosing of hydrocortisone. Per Dr. Gillette note, recommended going back to baseline 20/10 if no improvement, and given dyer rise in anxiety/ruminations after initiating, will return back to 20/10. Pt's midline removed on 06/28/24. Currently awaiting rehab placement. Not able to return to [facility], seeking alternatives. Severe anxiety trial low dose ativan bid behavioral liaison consult, psychiatry consulted ?severe anxiety in setting of cog impairment v agitated delirium -Continue 5mg escitalopram (started 06/26) with plans to increase to 10mg daily as tolerated in 5-7 days -Continue abilify 2.5mg daily to aid with ruminations -can continued ativan prn but limit as able -2.5 IM zyprexa for behavioral emergency Stable Metabolic Encephalopathy, unclear etiology History of Complicated UTI Recent Enterococcus bacteremia - completed 2 week course of IV ampicillin Progressive weakness continue PCU at this time PT/OT recommending acute rehab urine culture from 06/20 grew joanna, likely colonization await urine culture Repeat culture with low growth klebsiella and joanna -Cefuroxime BID until 07/05 -treated joanna given complex medical history and ongoing malignancy, 400mg 06/25 then 200mg for 10 days 07/05 Stable Chronic, intermittent hematuria Chronic indwelling tatum Bladder cancer s/p keytruda Patient follows with Urology, Dr. Prado 02/2024: "hold aspirin when bleeding is present. Chronic and intermittent nature of hematuria in the context of a an indwelling Tatum catheter is emphasized." Previous provider Spoke to Urology: leaking in small amounts is not an uncommon phenomena as long as urine is draining as a tatum doesn't create a "vaccum seal" patient's requesting urology consult for definitive management on 07/01/2024. Urology consulted, appreciate recs-had discussion with patient and and noted the following per Dr Calvin Gtz: " Catheter is patent so suspect he is having bladder spasms. He is already on oxybutynin so other options are limited. I explained that upsizing the catheter typically does not change this symptom. Unfortunately, there are not many options for him at this point given that he requires the catheter and he is already on a medication to prevent leakage. Discussed expectations with patient and . Follow-up can be with primary urologist." Acute on Chronic Anemia Iron Deficiency Anemia hemoglobin of 10-12 Iron studies noting low iron levels with decreased ferritin Status post 1 bag of IV Venofer 200 mg on 06/30/2024 Continue p.o. 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, stable was on high dose steroids, now on routine adrenal insufficiency dosing Chronic conditions: Valvular heart disease: most recent echo shows mod/severe Chronic anemia CKD stage III COPD Mild cognitive impairment GERD Continue home medications as able DVT Px:Lovenox, will hold if worsening hematuria Diet: regular PCP: Deondre Hill Dispo: acute rehab Admission and Anticipated Discharge Date Admission Date: June 23, 2024 Subjective Patient is laying in bed in NAD Pt seen with RN present at the bedside Pt is pleasant and communicates well, he is awake , alert and oriented - he accurately says that he is in the hospital - knows his name and his 's name, knows the year and the month. Can provide his medical history and is inquiring about his discharge. He denies any fever, chills, chest pain, shortness of breath, abd. pain, n/v Review of Systems Review of Systems: All systems reviewed & are unremarkable except as noted in Subjective Physical Exam Physical Exam: General: obese M in NAD Neuro: awake, alert, oriented, speech fluent, no facial asymmetry HEENT: NC/AT CV: RRR, +murmur Resp: Breath sounds clear bilaterally, no increased effort of breathing Abdomen: Soft, nontender Extremities: edema in RLE>LLE extremities bilaterally. Results & Data Results & Data Vital Signs (Past 12 Hours) Vital Signs Temp Pulse Resp BP Pulse Ox O2 Del Method 07/05/24 14:10 36.9 C 80 20 114/70 99 Room Air 07/05/24 08:22 36.7 C 65 18 125/75 97 Room Air Laboratory Results 07/05/24 Range/Units 06:32 WBC 8.47 (4.8-10.8) K/ul RBC 3.80 L (4.70-6.10) M/uL Hgb 10.9 L (14.0-18.0) g/dl Hct 34.1 L (42.0-52.0) % MCV 89.7 (80.0-100.0) fL MCH 28.7 (25.0-34.0) pg MCHC 32.0 (32.0-36.0) g/dL RDW Std Deviation 46.0 (36.4-46.3) fL RDW Coeff of Robert 14.2 (11.5-14.5) % Plt Count 321 (130-400) K/uL MPV 8.5 L (9.4-12.4) fL Immature Gran % (Auto) 0.6 % Neut % (Auto) 66.1 % Lymph % (Auto) 22.6 % [place] % (Auto) 7.6 % Eos % (Auto) 2.7 % Baso % (Auto) 0.4 % Neut # (Auto) 5.61 (1.40-6.50) K/uL Lymph # (Auto) 1.91 (1.20-3.40) K/uL [place] # (Auto) 0.64 H (0.11-0.59) K/uL Eos # (Auto) 0.23 (0.00-0.50) K/uL Baso # (Auto) 0.03 (0.00-0.20) K/uL Immature Gran # (Auto) 0.05 (0.01-0.20) K/uL Sodium 145 (136-145) mmol/L Potassium 3.6 (3.5-5.1) mmol/L Chloride 110 H (98-107) mmol/L Carbon Dioxide 27 (21-32) mmol/L Anion Gap 8 (3-11) BUN 15 (6-23) mg/dl Creatinine 1.23 (0.6-1.4) mg/dl Est Cr Clr Drug Dosing 65.9 ml/min eGFR 60.47 BUN/Creatinine Ratio 12.2 (10-20) Glucose 96 (70-99(Fasting)) mg/dl Calcium 8.9 (8.6-10.3) mg/dl Phosphorus 3.6 (2.5-4.9) mg/dl Magnesium 1.9 (1.7-2.4) mg/dl Medications Administered Current Inpatient Medications Acetaminophen (Acetaminophen 325 Mg Tab) 650 mg PO Q4H PRN PRN Reason: Pain or Fever Stop: 07/23/24 18:11 Last Admin: 07/04/24 20:36 Dose: 650 mg Al Hydrox/Mg Hydrox/Simethicone (Aluminum/Magnesium Susp 30 Ml Udc) 15 ml PO Q4H PRN PRN Reason: Dyspepsia Stop: 07/23/24 18:11 Albuterol (Albuterol Hfa 8 Gm Inhaler) 2 puffs INH Q4H PRN PRN Reason: Shortness Of Breath Or Wheezing Stop: 07/23/24 18:11 Aripiprazole (Aripiprazole 5 Mg Tab) 2.5 mg PO QAM [facility] Stop: 07/26/24 11:59 Last Admin: 07/05/24 07:49 Dose: 2.5 mg Ascorbic Acid (Ascorbic Acid 500 Mg Tab) 1,000 mg PO DAILY [facility] Stop: 07/24/24 08:59 Last Admin: 07/05/24 07:51 Dose: 1,000 mg Aspirin (Aspirin 81 Mg Ectab) 81 mg PO DAILY [facility] Stop: 07/24/24 08:59 Last Admin: 07/05/24 07:51 Dose: 81 mg Cyanocobalamin (Cyanocobalamin (B-12) 500 Mcg Tablet) 1,000 mcg PO DAILY [facility] Stop: 07/24/24 08:59 Last Admin: 07/05/24 07:50 Dose: 1,000 mcg Enoxaparin Sodium (Enoxaparin Inj 40 Mg/0.4 Ml Syr) 40 mg SQ HS [facility] Stop: 07/23/24 20:59 Last Admin: 07/04/24 19:41 Dose: 40 mg Escitalopram Oxalate (Escitalopram Oxalate 10 Mg Tab) 5 mg PO QAM [facility] Stop: 07/26/24 08:59 Last Admin: 07/05/24 07:51 Dose: 5 mg Famotidine (Famotidine 20 Mg Tab) 20 mg PO DAILY PRN PRN Reason: Heartburn Stop: 07/23/24 18:11 Ferrous Sulfate (Ferrous Sulfate 325 Mg Tab) 325 mg PO DAILY [facility] Stop: 07/24/24 08:59 Last Admin: 07/05/24 07:52 Dose: 325 mg Fluconazole (Fluconazole 100 Mg Tab) 200 mg PO QAM [facility] Stop: 07/06/24 08:59 Last Admin: 07/05/24 07:50 Dose: 200 mg Fludrocortisone Acetate (Fludrocortisone Acetate 0.1 Mg Tab) 0.1 mg PO DAILY [facility] Stop: 07/24/24 08:59 Last Admin: 07/05/24 07:50 Dose: 0.1 mg Fluticasone Furoate (Fluticasone Furoate 200mcg 14 Puffs/Inhaler) 1 puffs INH DAILY [facility] Stop: 07/24/24 08:59 Last Admin: 07/05/24 07:53 Dose: 1 puffs Heparin Sodium (Beef Lung) (Heparin 10 Unit/Ml 5 Ml Flush) 5 ml FLUSH PRN PRN PRN Reason: Flush Stop: 07/24/24 11:59 Last Admin: 06/27/24 12:54 Dose: 5 ml Hydrocortisone (Hydrocortisone 10 Mg Tab) 20 mg PO QAM [facility] Stop: 07/27/24 08:59 Last Admin: 07/05/24 07:48 Dose: 20 mg Hydrocortisone (Hydrocortisone 10 Mg Tab) 10 mg PO 1500 [facility] Stop: 07/27/24 14:59 Last Admin: 07/05/24 15:54 Dose: 10 mg Labetalol HCl (Labetalol Hcl Iv 5 Mg/Ml 20ml) 5 mg IV Q6H PRN PRN Reason: SBP >160 Stop: 07/23/24 18:11 Lactobacillus Acidophilus (Advanced Probiotic 625 Mg Capsule) 1,250 mg PO DAILY [facility] Stop: 07/24/24 08:59 Last Admin: 07/05/24 07:49 Dose: 1,250 mg Lidocaine (Lidocaine 5% 1 Patch) 2 patch TD DAILY [facility] Stop: 07/24/24 08:59 Last Admin: 07/05/24 07:53 Dose: 2 patch Lorazepam (Lorazepam 0.5 Mg Tab) 0.25 mg PO BID PRN PRN Reason: Anxiety Stop: 07/24/24 14:50 Last Admin: 06/25/24 15:51 Dose: 0.25 mg Magnesium Chloride (Magnesium Chloride W/Calcium 64mg Delayed Rel Tab) 64 mg PO BID [facility] Stop: 07/23/24 20:59 Last Admin: 07/05/24 07:49 Dose: 64 mg Magnesium Hydroxide (Magnesium Hydroxide Susp 30 Ml Udc) 30 ml PO Q12H PRN PRN Reason: Constipation Stop: 07/23/24 18:11 Melatonin (Melatonin 3 Mg Tab) 3 mg PO HS [facility] Stop: 07/26/24 20:59 Last Admin: 07/04/24 19:41 Dose: 3 mg Memantine (Memantine Hcl 10 Mg Tab) 10 mg PO BIDM [facility] Stop: 07/26/24 16:59 Last Admin: 07/05/24 15:55 Dose: 10 mg Miscellaneous (Remove Lidoderm Patch) 1 each N/A DAILY@2100 [facility] Stop: 07/23/24 20:59 Last Admin: 07/04/24 19:41 Dose: 1 each Multivitamins/Minerals (Cerovite Adv Formula Tab) 1 tab PO DAILY [facility] Stop: 07/24/24 08:59 Last Admin: 07/05/24 07:50 Dose: 1 tab Nystatin (Nystatin Powder 15gm Btl) 1 appln EXT BID [facility] Stop: 07/23/24 20:59 Last Admin: 07/05/24 07:53 Dose: 1 appln Olanzapine (Olanzapine 10 Mg/2.1 Ml Sdv) 2.5 mg IM Q4H PRN PRN Reason: Agitation Stop: 07/25/24 22:16 Last Admin: 06/27/24 16:48 Dose: 2.5 mg Ondansetron HCl (Ondansetron Inj 2 Mg/Ml 2 Ml Vial) 4 mg IV Q6H PRN PRN Reason: Nausea Stop: 07/23/24 18:11 Oxybutynin Chloride (Oxybutynin Chloride Xl 5 Mg Tabcr) 5 mg PO DAILY [facility] Stop: 07/24/24 08:59 Last Admin: 07/05/24 07:51 Dose: 5 mg Pantoprazole Sodium (Pantoprazole 40 Mg Tab) 40 mg PO DAILY [facility] Stop: 07/24/24 08:59 Last Admin: 07/05/24 07:50 Dose: 40 mg Polyethylene Glycol (Polyethylene (Miralax) 17 Gm Pack) 17 gm PO DAILY PRN PRN Reason: Constipation Stop: 07/23/24 18:11 Last Admin: 07/03/24 11:04 Dose: 17 gm Umeclidinium/Vilanterol (Umeclidinium/Vilanterol 62.5/25mcg 7 Puffs/Inhaler) 1 puffs INH DAILY [facility] Stop: 07/24/24 08:59 Last Admin: 07/05/24 07:52 Dose: 1 puffs Vitamin D (Cholecalciferol 125 Mcg (5,000 Units) Tab) 125 mcg PO DAILY [facility] Stop: 07/24/24 08:59 Last Admin: 07/05/24 07:52 Dose: 125 mcg
[2024-07-06 02:49] LABS: Appearance Urine Turbid (Clear); Bilirubin Urine Negative (Negative); Blood Urine 3+ (Negative); Glucose Urine UA Negative (Negative); Ketones Urine Trace (Negative); Leukocyte Esterase Urine 3+ (Negative); Nitrite Urine Negative (Negative); Protein Urine 3+ (Negative); RBC Urine Automated >20 /hpf (0-2); Specific Gravity Urine 1.023 (1.000-1.030); Urobilinogen Urine Negative (Negative); WBC Urine Automated >50 /hpf (0-5); pH Urine 5.5 (4.5-7.5)
[2024-07-06 03:03] LABS: Color Urine Yellow
[2024-07-06 03:33] LABS: Calcium Oxalate Crystals Urine Present (None Prsent); Mucus Urine Present (None Prsent)
[2024-07-06 03:34] LABS: Bacteria Urine Automated 1+ (None Seen)
[2024-07-06] MEDS: MAGNESIUM HYDROXIDE SUSP 30 ML UDC PO PRN (05:40)
--- NOTE | 2024-07-06 18:28 | Hospitalist Progress Note ---
Date of Service July 06, 2024 Assessment & Plan (1) Mild cognitive impairment: (2) Chronic indwelling Tatum catheter: (3) Complicated UTI (urinary tract infection): (4) Elevated blood pressure reading: Plan Mr. High is a 78 yo M with PMH of adrenal insufficiency on chronic steroids, bronchial asthma/COPD, obstructive sleep apnea, prior DVT/PE s/p IVC filter no longer on anticoagulation due to bleeding issues, bladder cancer s/p surgery off of Keytruda secondary to development of myocarditis, prostate cancer s/p radiation therapy, valvular heart disease ,moderate aortic valve stenosis, mild aortic regurgitation, hypertension, orthostatic hypotension, chronic anemia, mild cognitive impairment and dementia, ambulatory dysfunction ambulates with a walker, urinary incontinence with chronic Tatum, chronic venous insufficiency, CKD stage III who presented to ED 06/23 from Cardiology office due to concern for generalized weakness progressing from baseline. Per previous provider with addendum: Patient with recent hospitalization for sepsis 2/2 enterococcus UTI and discharged to [facility] for IV antibiotics. Patient requiring wheelchair and difficulty walking since the last hospitalization. It was noted in Cardiology OP follow up weight gain of 203 to 239 pounds. Patient off midodrine 2/2 hypertension and recently transitioned from prednisone to hydrocortisone. Patient with leaking around tatum site. Discussed with Urology that given his history and with positioning it can leak, as long as the majority of urine is in the bag and there is no sign of obstruction that this is not abnormal. 06/26 patient noted to be more anxious and inconsolable--psychiatry consulted to aid in these behaviors. Question of extreme anxiety as apart of cognitive impairment or agitated delirium. Patient started on abilify and escitalopram. Also noted that symptoms seeming started with increased dosing of hydrocortisone. Per Dr. Gillette note, recommended going back to baseline 20/10 if no improvement, and given dyer rise in anxiety/ruminations after initiating, will return back to 20/10. Pt's midline removed on 06/28/24. Currently awaiting rehab placement. Not able to return to [facility], seeking alternatives. Severe anxiety trial low dose ativan bid behavioral liaison consult, psychiatry consulted ?severe anxiety in setting of cog impairment v agitated delirium -Continue 5mg escitalopram (started 06/26) with plans to increase to 10mg daily as tolerated in 5-7 days -Continue abilify 2.5mg daily to aid with ruminations -can continued ativan prn but limit as able -2.5 IM zyprexa for behavioral emergency Stable Metabolic Encephalopathy, unclear etiology History of Complicated UTI Recent Enterococcus bacteremia - completed 2 week course of IV ampicillin Progressive weakness continue PCU at this time PT/OT recommending acute rehab urine culture from 06/20 grew joanna, likely colonization await urine culture Repeat culture with low growth klebsiella and joanna -Cefuroxime BID until 07/05 - course finished -treated joanna given complex medical history and ongoing malignancy, 400mg 06/25 then 200mg for 10 days 07/05 - course finished Stable 07/06 - Pt's called overnight and requested UA to be obtained, ucultx pending. ID consulted. Chronic, intermittent hematuria Chronic indwelling tatum Bladder cancer s/p keytruda Patient follows with Urology, Dr. Prado 02/2024: "hold aspirin when bleeding is present. Chronic and intermittent nature of hematuria in the context of a an indwelling Tatum catheter is emphasized." Previous provider Spoke to Urology: leaking in small amounts is not an uncommon phenomena as long as urine is draining as a tatum doesn't create a "vaccum seal" patient's requesting urology consult for definitive management on 07/01/2024. Urology consulted, appreciate recs-had discussion with patient and and noted the following per Dr Calvin Gtz: " Catheter is patent so suspect he is having bladder spasms. He is already on oxybutynin so other options are limited. I explained that upsizing the catheter typically does not change this symptom. Unfortunately, there are not many options for him at this point given that he requires the catheter and he is already on a medication to prevent leakage. Discussed expectations with patient and . Follow-up can be with primary urologist." Acute on Chronic Anemia Iron Deficiency Anemia hemoglobin of 10-12 Iron studies noting low iron levels with decreased ferritin Status post 1 bag of IV Venofer 200 mg on 06/30/2024 Continue p.o. 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 He is inquiring about discharge. He denies any fever, chills, chest pain, shortness of breath, abd. pain, n/v Overnight pt's requested UA to be obtained, ucultx pending. Will further discuss w/ ID given chronic Tatum catheter and just finishing course of abx and antifungals. Review of Systems Review of Systems: All systems reviewed & are unremarkable except as noted in Subjective Physical Exam Physical Exam: General: obese M in NAD Neuro: awake, alert, oriented, speech fluent, no facial asymmetry HEENT: NC/AT CV: RRR, +murmur Resp: Breath sounds clear bilaterally, no increased effort of breathing Abdomen: Soft, nontender Extremities: edema in RLE>LLE extremities bilaterally. Results & Data Results & Data Vital Signs (Past 12 Hours) Vital Signs Temp Pulse Resp BP Pulse Ox O2 Del Method 07/06/24 15:54 36.4 C L 75 16 125/71 96 Room Air 07/06/24 07:58 36.6 C 70 16 129/71 97 Room Air Medications Administered Current Inpatient Medications Acetaminophen (Acetaminophen 325 Mg Tab) 650 mg PO Q4H PRN PRN Reason: Pain or Fever Stop: 07/23/24 18:11 Last Admin: 07/06/24 14:40 Dose: 650 mg Al Hydrox/Mg Hydrox/Simethicone (Aluminum/Magnesium Susp 30 Ml Udc) 15 ml PO Q4H PRN PRN Reason: Dyspepsia Stop: 07/23/24 18:11 Albuterol (Albuterol Hfa 8 Gm Inhaler) 2 puffs INH Q4H PRN PRN Reason: Shortness Of Breath Or Wheezing Stop: 07/23/24 18:11 Aripiprazole (Aripiprazole 5 Mg Tab) 2.5 mg PO QAM [facility] Stop: 07/26/24 11:59 Last Admin: 07/06/24 09:22 Dose: 2.5 mg Ascorbic Acid (Ascorbic Acid 500 Mg Tab) 1,000 mg PO DAILY [facility] Stop: 07/24/24 08:59 Last Admin: 07/06/24 09:23 Dose: 1,000 mg Aspirin (Aspirin 81 Mg Ectab) 81 mg PO DAILY [facility] Stop: 07/24/24 08:59 Last Admin: 07/06/24 09:21 Dose: 81 mg Cyanocobalamin (Cyanocobalamin (B-12) 500 Mcg Tablet) 1,000 mcg PO DAILY [facility] Stop: 07/24/24 08:59 Last Admin: 07/06/24 09:21 Dose: 1,000 mcg Enoxaparin Sodium (Enoxaparin Inj 40 Mg/0.4 Ml Syr) 40 mg SQ HS [facility] Stop: 07/23/24 20:59 Last Admin: 07/05/24 19:36 Dose: 40 mg Escitalopram Oxalate (Escitalopram Oxalate 10 Mg Tab) 5 mg PO QAM [facility] Stop: 07/26/24 08:59 Last Admin: 07/06/24 09:23 Dose: 5 mg Famotidine (Famotidine 20 Mg Tab) 20 mg PO DAILY PRN PRN Reason: Heartburn Stop: 07/23/24 18:11 Ferrous Sulfate (Ferrous Sulfate 325 Mg Tab) 325 mg PO DAILY [facility] Stop: 07/24/24 08:59 Last Admin: 07/06/24 09:24 Dose: 325 mg Fludrocortisone Acetate (Fludrocortisone Acetate 0.1 Mg Tab) 0.1 mg PO DAILY [facility] Stop: 07/24/24 08:59 Last Admin: 07/06/24 09:24 Dose: 0.1 mg Fluticasone Furoate (Fluticasone Furoate 200mcg 14 Puffs/Inhaler) 1 puffs INH DAILY [facility] Stop: 07/24/24 08:59 Last Admin: 07/06/24 09:25 Dose: 1 puffs Heparin Sodium (Beef Lung) (Heparin 10 Unit/Ml 5 Ml Flush) 5 ml FLUSH PRN PRN PRN Reason: Flush Stop: 07/24/24 11:59 Last Admin: 06/27/24 12:54 Dose: 5 ml Hydrocortisone (Hydrocortisone 10 Mg Tab) 20 mg PO QAM [facility] Stop: 07/27/24 08:59 Last Admin: 07/06/24 09:21 Dose: 20 mg Hydrocortisone (Hydrocortisone 10 Mg Tab) 10 mg PO 1500 [facility] Stop: 07/27/24 14:59 Last Admin: 07/06/24 15:10 Dose: 10 mg Labetalol HCl (Labetalol Hcl Iv 5 Mg/Ml 20ml) 5 mg IV Q6H PRN PRN Reason: SBP >160 Stop: 07/23/24 18:11 Lactobacillus Acidophilus (Advanced Probiotic 625 Mg Capsule) 1,250 mg PO DAILY [facility] Stop: 07/24/24 08:59 Last Admin: 07/06/24 09:21 Dose: 1,250 mg Lidocaine (Lidocaine 5% 1 Patch) 2 patch TD DAILY [facility] Stop: 07/24/24 08:59 Last Admin: 07/06/24 09:25 Dose: 2 patch Lorazepam (Lorazepam 0.5 Mg Tab) 0.25 mg PO BID PRN PRN Reason: Anxiety Stop: 07/24/24 14:50 Last Admin: 06/25/24 15:51 Dose: 0.25 mg Magnesium Chloride (Magnesium Chloride W/Calcium 64mg Delayed Rel Tab) 64 mg PO BID [facility] Stop: 07/23/24 20:59 Last Admin: 07/06/24 09:24 Dose: 64 mg Magnesium Hydroxide (Magnesium Hydroxide Susp 30 Ml Udc) 30 ml PO Q12H PRN PRN Reason: Constipation Stop: 07/23/24 18:11 Last Admin: 07/06/24 05:40 Dose: 30 ml Melatonin (Melatonin 3 Mg Tab) 3 mg PO HS [facility] Stop: 07/26/24 20:59 Last Admin: 07/05/24 19:35 Dose: 3 mg Memantine (Memantine Hcl 10 Mg Tab) 10 mg PO BIDM [facility] Stop: 07/26/24 16:59 Last Admin: 07/06/24 17:21 Dose: 10 mg Miscellaneous (Remove Lidoderm Patch) 1 each N/A DAILY@2100 [facility] Stop: 07/23/24 20:59 Last Admin: 07/05/24 19:35 Dose: 1 each Multivitamins/Minerals (Cerovite Adv Formula Tab) 1 tab PO DAILY [facility] Stop: 07/24/24 08:59 Last Admin: 07/06/24 09:22 Dose: 1 tab Nystatin (Nystatin Powder 15gm Btl) 1 appln EXT BID [facility] Stop: 07/23/24 20:59 Last Admin: 07/06/24 09:29 Dose: 1 appln Olanzapine (Olanzapine 10 Mg/2.1 Ml Sdv) 2.5 mg IM Q4H PRN PRN Reason: Agitation Stop: 07/25/24 22:16 Last Admin: 06/27/24 16:48 Dose: 2.5 mg Ondansetron HCl (Ondansetron Inj 2 Mg/Ml 2 Ml Vial) 4 mg IV Q6H PRN PRN Reason: Nausea Stop: 07/23/24 18:11 Oxybutynin Chloride (Oxybutynin Chloride Xl 5 Mg Tabcr) 5 mg PO DAILY [facility] Stop: 07/24/24 08:59 Last Admin: 07/06/24 09:24 Dose: 5 mg Pantoprazole Sodium (Pantoprazole 40 Mg Tab) 40 mg PO DAILY [facility] Stop: 07/24/24 08:59 Last Admin: 07/06/24 09:23 Dose: 40 mg Polyethylene Glycol (Polyethylene (Miralax) 17 Gm Pack) 17 gm PO DAILY PRN PRN Reason: Constipation Stop: 07/23/24 18:11 Last Admin: 07/06/24 05:40 Dose: 17 gm Umeclidinium/Vilanterol (Umeclidinium/Vilanterol 62.5/25mcg 7 Puffs/Inhaler) 1 puffs INH DAILY [facility] Stop: 07/24/24 08:59 Last Admin: 07/06/24 09:26 Dose: 1 puffs Vitamin D (Cholecalciferol 125 Mcg (5,000 Units) Tab) 125 mcg PO DAILY [facility] Stop: 07/24/24 08:59 Last Admin: 07/06/24 09:23 Dose: 125 mcg
[2024-07-06 19:29] VITALS: PULSE 71; TEMP 97.9
[2024-07-07 07:56] VITALS: BP 150/77; RESP 16; O2SAT 99
--- NOTE | 2024-07-07 12:41 | Discharge Summary ---
Discharge Summary Date of Service July 07, 2024 Principal Dx & Hospital Course #1 = Principal Diagnosis (1) Mild cognitive impairment: (2) Chronic indwelling Tatum catheter: (3) Complicated UTI (urinary tract infection): (4) Elevated blood pressure reading: Plan Mr. High is a 78 yo M with PMH of adrenal insufficiency on chronic steroids, bronchial asthma/COPD, obstructive sleep apnea, prior DVT/PE s/p IVC filter no longer on anticoagulation due to bleeding issues, bladder cancer s/p surgery off of Keytruda secondary to development of myocarditis, prostate cancer s/p radiation therapy, valvular heart disease ,moderate aortic valve stenosis, mild aortic regurgitation, hypertension, orthostatic hypotension, chronic anemia, mild cognitive impairment and dementia, ambulatory dysfunction ambulates with a walker, urinary incontinence with chronic Tatum, chronic venous insufficiency, CKD stage III who presented to ED 06/23 from Cardiology office due to concern for generalized weakness progressing from baseline. Patient with recent hospitalization for sepsis 2/2 enterococcus UTI and discharged to [facility] for IV antibiotics. Patient requiring wheelchair and difficulty walking since the last hospitalization. Patient off midodrine 2/2 hypertension and recently transitioned from prednisone to hydrocortisone. Patient with leaking around tatum site. Discussed with Urology that given his history and with positioning it can leak, as long as the majority of urine is in the bag and there is no sign of obstruction that this is not abnormal. 06/26 patient noted to be more anxious and inconsolable--psychiatry consulted to aid in these behaviors. Question of extreme anxiety as apart of cognitive impairment or agitated delirium. Patient started on abilify and escitalopram. Also noted that symptoms seeming started with increased dosing of hydrocortisone. Per Dr. Gillette note, recommended going back to baseline /10 if no improvement, and given dyer rise in anxiety/ruminations after initiating higher dosing. Patient ultimately transitioned to 20/10.Pt's midline removed on 06/28/24. Last 48 hours prior to discharge complicated by communication concerns with patient's and providers. UA was obtained given 's concern over no "repeat being obtained." Abnormal UA resulted iso chronic indwelling tatum. ID consulted to aid in explanations with patient's about the use of antibiotics when no clear symptomatic is present. It was discussed that there is huge risk for recurrent urinary tract infection with indwelling Tatum catheters. Repeat UA was explained that it is not appro priate for this exact reason--an active culture s/p treatment. Patient on day of discharge reported feeling "better" and is eager for discharge to rehab to get home. He denied any acute concerns. #Severe anxiety trial low dose ativan bid behavioral liaison consult, psychiatry consulted ?severe anxiety in setting of cog impairment v agitated delirium -Continue 5mg escitalopra -Continue abilify 2.5mg daily to aid with ruminations #Metabolic Encephalopathy, unclear etiology resolved #History of Complicated UTI #Recent Enterococcus bacteremia - completed 2 week course of IV ampicillin #Progressive weakness continue PCU at this time PT/OT recommending acute rehab urine culture from 06/20 grew joanna, likely colonization await urine culture Repeat culture with low growth klebsiella and joanna -Cefuroxime BID until 07/05 - course finished -treated joanna given complex medical history and ongoing malignancy, 400mg 06/25 then 200mg for 10 days 07/05 - course finished Repeat UA active--evalauted by ID, who agrees to note continue abx #Chronic, intermittent hematuria #Chronic indwelling tatum #Bladder cancer s/p keytruda Patient follows with Urology, Dr. Prado 02/2024: "hold aspirin when bleeding is present. Chronic and intermittent nature of hematuria in the context of a an indwelling Tatum catheter is emphasized." Previous provider Spoke to Urology: leaking in small amounts is not an uncommon phenomena as long as urine is draining as a tatum doesn't create a "vaccum seal" patient's requesting urology consult for definitive management on 07/01/2024. Urology consulted, appreciate recs-had discussion with patient and and noted the following per Dr Calvin Gtz: " Catheter is patent so suspect he is having bladder spasms. He is already on oxybutynin so other options are limited. I explained that upsizing the catheter typically does not change this symptom. Unfortunately, there are not many options for him at this point given that he requires the catheter and he is already on a medication to prevent leakage. Discussed expectations with patient and . Follow-up can be with primary urologist." #Acute on Chronic Anemia stable #Iron Deficiency Anemia hemoglobin of 10-12 Iron studies noting low iron levels with decreased ferritin Status post 1 bag of IV Venofer 200 mg on 06/30/2024 Continue p.o. 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 S/P IVC filter off DOAC due to bleeding issues Pt having thigh pain and concerned about possible blood clot -LE doppler ordered on 07/01, noted chronic DVT changes, no acute DVT patient also currently on DVT prophylaxis of Lovenox 40 subcu during this hospitalization #Chronic Adrenal insufficiency recently seen by Larry Valdovinos, continued back on dosing, will need to follow up with Dr Valdovinos in future #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, stable was on high dose steroids, now on routine adrenal insufficiency dosing Chronic conditions: Valvular heart disease: most recent echo shows mod/severe Chronic anemia CKD stage III COPD Mild cognitive impairment GERD Continue home medications as able dsicharged to rehab Notes For Next Care Provider Medication Changes From Visit Hydrocortisone 20mg am, 10mg pm Escitalopram 5mg qam Abilify 2.5mg daily Admission HPI Per Admitting Provider This is a 78-year-old male with past medical history significant for adrenal ins ufficiency on chronic steroids, bronchial asthma/COPD, obstructive sleep apnea, history of DVT/PE s/p IVC filter no longer on anticoagulation due to bleeding issues, bladder cancer s/p surgery off of Keytruda secondary to development of myocarditis, prostate cancer s/p radiation therapy, valvular heart disease ,moderate aortic stenosis, mild aortic regurgitation, hypertension, orthostatic hypotension, chronic anemia, mild cognitive impairment and dementia, ambulatory dysfunction ambulates with a walker, urinary incontinence, currently on chronic Tatum, chronic venous insufficiency, CKD stage III who presented to ED from cardiology office due to concern for generalized decline from baseline and possible recurrence of urosepsis. He feels very weak. He denies any f/c/s, chest pain, sob, n/v/d, abd pain. His appetite has been up and down. He feels very confused and doesn't understand where he is at. His last BM was 1 day ago. Pt reports 3 weeks ago he passed out and fell on his back on his way to the dentist office. He is still having some back pain. He is very worried with what we are going to do with him not knowing where he is. Of significance patient was recently hospitalized 05/31 to 06/09 secondary to urosepsis, complicated UTI and Enterococcus facialis bacteremia. He was seen by infectious disease who recommended a 2-week course of ampicillin. he was to be discharged from rehab tomorrow. He presented to cardiology clinic today with his . There is ongoing concern over patient becoming increasingly more weak than baseline. He was requiring significant assistance with ambulation and a wheelchair. A recent outpatient urine culture grew Joanna and he was started on course of fluconazole while at rehab. Also of note patient's weight is significantly increased from 203 pounds to 239 pounds over the course of his stay. It is uncertain the etiology of the weight gain. Per cardiology notes patient's most recent echocardiogram showed a normal LV systolic function with an EF of 60 to 65% however also noted that patient does have a significant moderate to severe aortic stenosis. I did discuss with [facility] who felt pt had his best day today. At baseline he is very confused and this can be intermittent. Typically he requires assistance to a wheel chair but most has been staying in the wheel chair. Staff at [facility] have not noticed much difference physically from when he was admitted and they do not feel he has had a decline. Pt was to be discharged this weekend due to insurance and it was reported that has significant concern caring for pt at home. Admission Exam Per Admitting Provider On exam: GENERAL: Oriented x2 but is confused. NAD, on RA. HEENT: No pallor, no icterus. Pupils equal, round and reactive to light. dry mucosa moist. NECK: No JVD, no neck masses. HEART: S1 and S2 heard. Regular rate and rhythm. No murmur, no gallop. RESPIRATORY SYSTEM: Normal AP diameter. No accessory muscle use. No wheezing, no crackles. ABDOMEN: Soft, bowel sounds present, nontender, no distention. CENTRAL NERVOUS SYSTEM: No facial droop. Speech is clear. Obeys simple commands. Moves extremities. EXTREMITIES: 1+ ble edema, ble chronic skin changes, no erythema seen. Urine catheter w/ darker urine collection noted. Discharge Exam Constitutional WD/WN, vitals as above Respiratory normal respiratory effort, lungs clear to auscultation Cardiovascular RRR, no murmur, no edema Gastrointestinal (Abdomen) normal bowel sounds, soft, nontender, no hepatosplenomegaly Updated Medication List Medication Instructions Recorded Confirmed Type Senna-C 1 tab PO DAILY Constipation #30 06/08/24 06/23/24 Rx tabs acetaminophen 325 mg tablet 650 mg (2 x 325 mg) PO Q4H PRN 06/08/24 06/23/24 Rx fever or pain #30 tabs albuterol sulfate 90 mcg/actuation 2 puff inhalation Q4H PRN 06/08/24 06/23/24 Rx aerosol inhaler Shortness Of Breath Or Wheezing #16 grams ascorbic acid (vitamin C) 1,000 mg 1,000 mg PO DAILY #30 tabs 06/08/24 06/23/24 Rx tablet aspirin 81 mg tablet,delayed 81 mg PO DAILY #30 tabs 06/08/24 06/23/24 Rx release cholecalciferol (vitamin D3) 125 125 mcg PO DAILY #30 tabs 06/08/24 06/23/24 Rx mcg (5,000 unit) tablet (Vitamin D3) cyanocobalamin (vitamin B-12) 1,000 mcg PO DAILY #30 tabs 06/08/24 06/23/24 Rx 1,000 mcg tablet epinephrine 0.3 mg/0.3 mL 0.3 mg (0.3 mL) IM UD PRN 06/08/24 06/23/24 Rx injection, auto-injector Anaphylaxis #3 ea ferrous sulfate 325 mg (65 mg 325 mg PO DAILY #30 tabs 06/08/24 06/23/24 Rx iron) tablet,delayed release fludrocortisone 0.1 mg tablet 0.1 mg PO DAILY #30 tabs 06/08/24 06/23/24 Rx fluticasone fur. 200 mcg-umeclid 1 inh inhalation DAILY #1 ea 06/08/24 06/23/24 Rx 62.5 mcg-vilant 25 mcg inhalat.powder (Trelegy Ellipta) lidocaine 5 % topical patch 2 patch transdermal DAILY #20 ea 06/08/24 06/23/24 Rx magnesium chloride 64 mg 64 mg PO BID #60 tabs 06/08/24 06/23/24 Rx (magnesium chloride) tablet,delayed release memantine 10 mg tablet 10 mg PO BID #60 tabs 06/08/24 06/23/24 Rx multivitamin with minerals-folic 1 tab PO DAILY #30 tabs 06/08/24 06/23/24 Rx acid 200 mcg chewable tablet (Multivitamin Gummies) nystatin 100,000 unit/gram topical 1 applic EXT BID #30 grams 06/08/24 06/23/24 Rx powder (Nystop) omeprazole 20 mg capsule,delayed 20 mg PO DAILY #30 caps 06/08/24 06/23/24 Rx release solifenacin 5 mg tablet 5 mg PO DAILY #30 tabs 06/08/24 06/23/24 Rx L.acidop,casei,lactis,rham-B.lact,sienna 1 cap PO DAILY 30 days #30 caps 07/07/24 Rx 625 mg (10 billion cell) capsule (Advanced Probiotic) aripiprazole 5 mg tablet (Abilify) 2.5 mg (1/2 x 5 mg) PO QAM 30 days 07/07/24 Rx #15 tabs escitalopram oxalate 10 mg tablet 5 mg (1/2 x 10 mg) PO QAM 30 days 07/07/24 Rx #15 tabs hydrocortisone 10 mg tablet 10 mg PO 1500 #0 tabs 07/07/24 06/23/24 Rx (Cortef) hydrocortisone 10 mg tablet 20 mg (2 x 10 mg) PO QAM #0 tabs 07/07/24 06/23/24 Rx (Cortef) Hospital Stay Data Consultations 06/23/24 15:51 ED Decision to Admit Stat 06/26/24 08:34 Consult Psychiatry Routine 07/01/24 10:14 Consult Urology Routine 07/06/24 01:22 Consult Patient Rep [Consult Patient Services] Routine 07/06/24 09:30 Consult Infectious Diseases Routine Diagnostic Imagining Performed 06/27/24 16:37 CT head/brain wo con Routine 07/01/24 14:24 US leg [US venous doppler LE RT] Urgent Pending Results Patient Have Any Pending Studies at Discharge: No Discharge Instructions Given to Patient (Per Discharging Provider) You were admitted for concerns of weakness and found to have yeast in your urine. Yeast is usually found in indwelling catheters, but given your history, you were treated for bladder yeast infection. You completed a course of antibiotics as well. You were initially started on increase steroids, but noted to seem very anxious with that regimen. Your dose is hydrocortisone 20mg in morning and 10mg in afternoon. You were started on escitalopram 5mg daily and aripiprazole 2.5mg daily for mood. You will need to follow up with Dr. Valdemar Prado upon discharge from rehab. Total Time Total Time Spent Total Time Spent (In Minutes): 60
--- NOTE | 2024-07-07 14:08 | Infectious Disease Consult ---
Date of Service July 07, 2024 Telehealth Information I performed this visit using a real-time telehealth connection between my location and the patients location ([facility]). After connecting through interactive tele-video, patient was identified by name and date of and/or wristband check.Patient (or authorized healthcare accounts receivable representative) was informed that this was a telemedicine visit and it was being conducted confidentially over secure lines. My office door was closed and no one else was present in the room with me.Patient (or authorized healthcare accounts receivable representative) provided consent to proceed with the visit, expressed an understanding of privacy and security of the telemedicine visit, and gave permission to have a hospital accounts receivable representative in the room in order to assist with the visit and to conduct portions of the visit, as needed. I informed the patient (or authorized healthcare accounts receivable representative) that I reviewed their record and presented the opportunity for them to ask any questions regarding the visit today. The patient agreed to participate. Assessment & Plan (1) Recurrent UTI: (2) Chronic indwelling Devlin catheter: (3) Mild cognitive impairment: Plan I explained to the patient and his in details that the risk of recurrent urinary tract infection is high in patients with indwelling Devlin catheters. I also explained to them that the repeat urine culture in patients with catheters should not be performed to confirm cure because culture might continue to be positive even after appropriate treatment. I further educated the about some of the signs and symptoms of urinary tract infection in patients who had chronic Devlin catheters including signs of systemic toxicity such as fever and chills, change in mental status and progressive weakness. I also emphasized to her the importance of prescribing antibiotics only when the clinical picture (including the above signs and symptoms) is suggestive of UTI as unnecessary antibiotic use might result in drug-resistant organisms and makes us out of antibiotic options to treat any urinary tract infection in the future. History of Present Illness History of Present Illness Mr. High is a 78-year-old man with medical history of adrenal insufficiency on chronic steroids, COPD, obstructive sleep apnea, history of DVT/PE, bladder cancer status post-surgery, prostate cancer s/p radiation therapy, HTN, mild cognitive impairment and dementia, CKD stage III and history of indwelling chronic Devlin catheter was admitted to [facility] on 06/23/2024 because of progressive decline in his ADLs. At that time, he was suspected of having complicated UTI. The urine culture grew Sylvia albicans and Klebsiella pneumoniae. He was then treated with a 10-day course of cefuroxime and fluconazole which she completed on 07/05/2024. He had some improvement in his mental status but still not back to baseline. His was concerned about incomplete recovery of his delirium/confusion and was requesting a repeat urine culture to see whether the infection resolved. The ID team was consulted to help address the patient's concern and provide recommendations regarding antibiotic need. Allergies Allergy/AdvReac Type Severity Reaction Status Date / Time Iodinated Contrast Media Allergy Severe LOVERSOL---CARDIAC Verified 06/22/24 13:[address] CONTRAST clindamycin Allergy Intermediate Rash Verified 06/22/24 13:25 chocolate flavor AdvReac Severe DIARRHEA/ Verified 06/22/24 13:25 Cannot take, interacts w/ medications. pembrolizumab [From [facility]] AdvReac Intermediate myocarditis Verified 06/22/24 13:25 Home Medications Medication Instructions Recorded Confirmed Type Senna-C 1 tab PO DAILY Constipation #30 06/08/24 06/23/24 Rx tabs acetaminophen 325 mg tablet 650 mg (2 x 325 mg) PO Q4H PRN 06/08/24 06/23/24 Rx fever or pain #30 tabs albuterol sulfate 90 mcg/actuation 2 puff inhalation Q4H PRN 06/08/24 06/23/24 Rx aerosol inhaler Shortness Of Breath Or Wheezing #16 grams ascorbic acid (vitamin C) 1,000 mg 1,000 mg PO DAILY #30 tabs 06/08/24 06/23/24 Rx tablet aspirin 81 mg tablet,delayed 81 mg PO DAILY #30 tabs 06/08/24 06/23/24 Rx release cholecalciferol (vitamin D3) 125 125 mcg PO DAILY #30 tabs 06/08/24 06/23/24 Rx mcg (5,000 unit) tablet (Vitamin D3) cyanocobalamin (vitamin B-12) 1,000 mcg PO DAILY #30 tabs 06/08/24 06/23/24 Rx 1,000 mcg tablet epinephrine 0.3 mg/0.3 mL 0.3 mg (0.3 mL) IM UD PRN 06/08/24 06/23/24 Rx injection, auto-injector Anaphylaxis #3 ea ferrous sulfate 325 mg (65 mg 325 mg PO DAILY #30 tabs 06/08/24 06/23/24 Rx iron) tablet,delayed release fludrocortisone 0.1 mg tablet 0.1 mg PO DAILY #30 tabs 06/08/24 06/23/24 Rx fluticasone fur. 200 mcg-umeclid 1 inh inhalation DAILY #1 ea 06/08/24 06/23/24 Rx 62.5 mcg-vilant 25 mcg inhalat.powder (Trelegy Ellipta) lidocaine 5 % topical patch 2 patch transdermal DAILY #20 ea 06/08/24 06/23/24 Rx magnesium chloride 64 mg 64 mg PO BID #60 tabs 06/08/24 06/23/24 Rx (magnesium chloride) tablet,delayed release memantine 10 mg tablet 10 mg PO BID #60 tabs 06/08/24 06/23/24 Rx multivitamin with minerals-folic 1 tab PO DAILY #30 tabs 06/08/24 06/23/24 Rx acid 200 mcg chewable tablet (Multivitamin Gummies) nystatin 100,000 unit/gram topical 1 applic EXT BID #30 grams 06/08/24 06/23/24 Rx powder (Nystop) omeprazole 20 mg capsule,delayed 20 mg PO DAILY #30 caps 06/08/24 06/23/24 Rx release solifenacin 5 mg tablet 5 mg PO DAILY #30 tabs 06/08/24 06/23/24 Rx L.acidop,casei,lactis,rham-B.lact,sienna 1 cap PO DAILY 30 days #30 caps 07/07/24 Rx 625 mg (10 billion cell) capsule (Advanced Probiotic) aripiprazole 5 mg tablet (Abilify) 2.5 mg (1/2 x 5 mg) PO QAM 30 days 07/07/24 Rx #15 tabs escitalopram oxalate 10 mg tablet 5 mg (1/2 x 10 mg) PO QAM 30 days 07/07/24 Rx #15 tabs hydrocortisone 10 mg tablet 10 mg PO 1500 #0 tabs 07/07/24 06/23/24 Rx (Cortef) hydrocortisone 10 mg tablet 20 mg (2 x 10 mg) PO QAM #0 tabs 07/07/24 06/23/24 Rx (Cortef) Patient History Medical History Fracture of multiple teeth Sacral pressure sore Ambulatory dysfunction Generalized weakness Anemia Urethral stricture Ascending aorta dilation Mild- 4.4cm per 11/2022 ECHO Obesity Venous insufficiency (chronic) (peripheral) Radiation cystitis Kidney stones x1 episode. no surgery needed. Cardiac arrest hx r/t IV Contrast Dye "many years ago" Allergic rhinitis Contrast media allergy Hiatal hernia Surgical History S/P cataract extraction History of right cataract extraction History of colonoscopy H/O sinus surgery History of appendectomy S/P TURP (status post transurethral resection of prostate) Status post cystoscopy (11/07/13) Family History Father Prostate cancer Brother Prostate cancer Mother Thyroid cancer Cancer Other No family history of adverse response to anesthesia Social History Smoking Status: Never smoker Tobacco Type: Cigarettes Second Hand Exposure: Yes; Do You Dip or Chew Tobacco: No; Hx Alcohol Use: No Hx Substance Use: No Preferred Language: Mohawk Communication Ability: Impaired Visual Impairment: Limited Hearing Ability: Normal Photolithographer Required: No Beliefs That Will Affect Care: None marital status: Current Living Situation: Spouse Current Living Situation Comment: at home with current occupational status: retired How many Children do You have: 0 Feels Safe at Home: Yes Diet: regular during the past year weight has: decreased > 10 lbs Seatbelt Use: always Do you think of yourself as: straight/heterosexual Gender Identity: Male Assistive Devices: Bedside Commode, Hospital Bed and Walker Review of Systems Negative except for what was mentioned in H&P. Physical Exam Could not be obtained as the visit was performed via TeleMed. Results & Data Vital Signs (Past 12 Hours) Vital Signs Temp Pulse Resp BP Pulse Ox O2 Del Method 07/07/24 07:55 36.6 C 71 16 150/77 H 99 Room Air Laboratory Results Microbiology: 06/23: 2 sets of blood cultures negative 06/23: Urine culture growing Sylvia albicans and Klebsiella pneumoniae 06/28: Urine culture growing 3 types of organisms, no further speciation 07/06: Urine culture from indwelling catheter with no growth
== END 2024-07-07 14:51 | DRG 698 ==
LOC: ED 13:25 → SUATTDRO 15:49 → 2W 15:49 → 2S 21:42 → 3W 06-30 18:49

== ENCOUNTER 2024-07-28 17:13 | Inpatient (IN) ==
[2024-07-28 18:04] LABS: Basophils # (auto) 0.02 K/uL (0.00-0.20); Basophils % (auto) 0.2 %; Eosinophils # (auto) 0.04 K/uL (0.00-0.50); Eosinophils % (auto) 0.4 %; Hemoglobin 10.9 g/dl (14.0-18.0); Immature Granulocytes % (auto) 1.1 %; Lymphocytes # (auto) 1.17 K/uL (1.20-3.40); Lymphocytes % (auto) 12.8 %; Mean Corpuscular Hemoglobin 28.1 pg (25.0-34.0); Mean Corpuscular Hgb Conc 32.1 g/dL (32.0-36.0); Mean Corpuscular Volume 87.6 fL (80.0-100.0); Mean Platelet Volume 8.8 fL (9.4-12.4); Monocytes % (auto) 4.4 %; Neutrophils # (auto) 7.41 K/uL (1.40-6.50); Neutrophils % (auto) 81.1 %; Platelet Count 352 K/uL (130-400); RDW Coefficient of Variation 15.5 % (11.5-14.5); RDW Standard Deviation 48.9 fL (36.4-46.3); Red Blood Count 3.88 M/uL (4.70-6.10); White Blood Count 9.14 K/ul (4.8-10.8)
[2024-07-28 18:16] LABS: Albumin Level 3.4 gm/dl (3.4-5.0); BUN Creatinine Ratio 13.1 (10-20); Bilirubin,Total 0.5 mg/dl (0.2-1.0); Calcium 9.2 mg/dl (8.6-10.3); Creatinine Clr Calc Pharmacy 66.3 ml/min; Globulin 3.4 gm/dl (2.5-4.0); Magnesium 1.7 mg/dl (1.7-2.4); Total Protein 6.8 gm/dl (6.0-8.3)
[2024-07-28 18:33] LABS: INR 1.1 (0.9-1.1); Partial Thromboplastin Time 28 Seconds (21-31); Prothrombin Time 11.4 Seconds (9.0-12.0)
[2024-07-28] MEDS: SODIUM CHLORIDE 0.9% 1,000 ML IV ONE (18:52)
--- NOTE | 2024-07-28 18:56 | XRay Report ---
EXAM: Radiograph of the Chest 1 View INDICATION: Sepsis. TECHNIQUE: Frontal view of the chest. COMPARISON: 05/31/2024 FINDINGS: Lungs and pleural spaces: Stable interstitial and left basilar scarring. No consolidation or pulmonary edema. No pleural effusion or pneumothorax. Heart: Shape and configuration within normal limits allowing for technique. Mediastinum: Normal contour. Bones/joints: No fracture, erosion or dislocation. Soft tissues: No abnormality noted. No radiopaque foreign body noted. Vasculature: Stable ectatic aorta. Upper abdomen: No abnormality noted. IMPRESSION: Stable chronic changes. No acute disease. ACT 112: Negative or not required by law. Electronically signed by Milady Ford 07-28-2024 6:55 PM
--- NOTE | 2024-07-28 18:56 | Emergency Department Note ---
ED Visit Note I was consulted by the Advanced Practice Provider, Justyna Roy PA-C. I personally made/approved the management plan and take responsibility for the patient management. I performed a substantive portion of the visit. This includes the aspects of: -History/Physical/Personally seeing the patient -MDM .
--- NOTE | 2024-07-28 19:00 | XRay Report ---
EXAM: Radiographs of the Pelvis 1 View INDICATION: Sepsis. TECHNIQUE: Frontal view of the pelvis. COMPARISON: No relevant prior studies available. FINDINGS: Limitations: None. Bones/joints: Trabecular coarsening and thickening of the right pubic bones and acetabulum noted likely related to Paget's. There is mild osteoarthritic narrowing of each hip. No fracture noted. No osseous destruction. Soft tissues: No abnormality noted. No radiopaque foreign body noted. Vasculature: Inferior vena cava filter noted at L3-L. IMPRESSION: 1. No acute abnormality. 2. 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 ACT 112: Negative or not required by law. Electronically signed by Milady Ford 07-28-2024 6:59 PM
[2024-07-28 19:31] LABS: Appearance Urine Clear (Clear); Bacteria Urine Automated 3+ (None Seen); Bilirubin Urine Negative (Negative); Blood Urine 3+ (Negative); Cast Urine Automated 0-2 /lpf (0-2); Color Urine Yellow; Epithelial Cell Urine Auto 0-2 /hpf (0-2); Glucose Urine UA Negative (Negative); Ketones Urine Negative (Negative); Leukocyte Esterase Urine 2+ (Negative); Nitrite Urine Negative (Negative); Protein Urine 2+ (Negative); RBC Urine Automated >20 /hpf (0-2); Specific Gravity Urine 1.012 (1.000-1.030); Urobilinogen Urine Negative (Negative); WBC Urine Automated >50 /hpf (0-5); pH Urine 8.5 (4.5-7.5)
[2024-07-28] MEDS: CEFEPIME 2000MG 2,000 MG/20 ML SYR IV STA (19:50)
--- NOTE | 2024-07-28 19:59 | CT Scan Report ---
Exam(s): CT HEAD Without Contrast EXAM: CT Head Without Intravenous Contrast CLINICAL HISTORY: Reason for exam: fall, confusion. TECHNIQUE: Axial computed tomography images of the head/brain without intravenous contrast. CTDI is 77.28 mGy and DLP is 1250.21 mGy-cm. Automated exposure control was utilized for the study. A dose lowering technique was utilized adhering to the principles of ALARA. COMPARISON: 06/27/24 FINDINGS: Brain: Generalized parenchymal volume loss. Mild chronic small vessel ischemic change. Ware-white matter differentiation maintained. No hemorrhage, mass effect, parenchymal edema, or midline shift. Ventricles: Unremarkable. No hydrocephalus. Bones/joints: Unremarkable. No acute fracture. Soft tissues: Unremarkable. Vasculature: Intracranial atherosclerosis. Sinuses: Mucosal thickening in the sphenoid sinus. Mastoid air cells: Unremarkable as visualized. No mastoid effusion. Orbits: Lens replacement. IMPRESSION: No acute intracranial process. Electronically signed by: Nicole Lambert M.D. 07/28/24 19:57 PM
--- NOTE | 2024-07-28 20:08 | Emergency Department Note ---
ED Provider Note History of Present Illness Chief Complaint: Hematuria Stated Complaint: TAILBONE PAIN, Time Seen by Provider: 07/28/24 18:20 Source: patient and EMS Mode of arrival: EMS Limitations: altered mental status This patient is a 78-year-old male who presents to the emergency department via EMS for evaluation of a fall. Per EMS, the patient slipped going downstairs and fell onto his buttocks. History is difficult to obtain from the patient due to confusion. Patient able to answer some questions appropriately. He does state that he fell "onto my butt." He denies any pain at this time. Patient otherwise unable to state why he is here. EMS reports that he has been increasingly unsteady on his feet. Patient was recently discharged home from a SNF. Home Medications Medication Instructions Recorded Confirmed Type acetaminophen 325 mg tablet 650 mg (2 x 325 mg) PO Q4H PRN 06/08/24 07/28/24 Rx fever or pain #30 tabs albuterol sulfate 90 mcg/actuation 2 puff inhalation Q4H PRN 06/08/24 07/28/24 Rx aerosol inhaler Shortness Of Breath Or Wheezing #16 grams ascorbic acid (vitamin C) 1,000 mg 1,000 mg PO DAILY #30 tabs 06/08/24 07/28/24 Rx tablet aspirin 81 mg tablet,delayed 81 mg PO DAILY #30 tabs 06/08/24 07/28/24 Rx release cholecalciferol (vitamin D3) 125 125 mcg PO DAILY #30 tabs 06/08/24 07/28/24 Rx mcg (5,000 unit) tablet (Vitamin D3) cyanocobalamin (vitamin B-12) 1,000 mcg PO DAILY #30 tabs 06/08/24 07/28/24 Rx 1,000 mcg tablet epinephrine 0.3 mg/0.3 mL 0.3 mg (0.3 mL) IM UD PRN 06/08/24 07/28/24 Rx injection, auto-injector Anaphylaxis #3 ea ferrous sulfate 325 mg (65 mg 325 mg PO DAILY #30 tabs 06/08/24 07/28/24 Rx iron) tablet,delayed release fludrocortisone 0.1 mg tablet 0.1 mg PO DAILY #30 tabs 06/08/24 07/28/24 Rx fluticasone fur. 200 mcg-umeclid 1 inh inhalation DAILY #1 ea 06/08/24 07/28/24 Rx 62.5 mcg-vilant 25 mcg inhalat.powder (Trelegy Ellipta) lidocaine 5 % topical patch 2 patch transdermal DAILY #20 ea 06/08/24 07/28/24 Rx magnesium chloride 64 mg 64 mg PO BID #60 tabs 06/08/24 07/28/24 Rx (magnesium chloride) tablet,delayed release memantine 10 mg tablet 10 mg PO BID #60 tabs 06/08/24 07/28/24 Rx multivitamin with minerals-folic 1 tab PO DAILY #30 tabs 06/08/24 07/28/24 Rx acid 200 mcg chewable tablet (Multivitamin Gummies) nystatin 100,000 unit/gram topical 1 applic EXT BID #30 grams 06/08/24 07/28/24 Rx powder (Nystop) omeprazole 20 mg capsule,delayed 20 mg PO DAILY #30 caps 06/08/24 07/28/24 Rx release solifenacin 5 mg tablet 5 mg PO DAILY #30 tabs 06/08/24 07/28/24 Rx L.acidop,casei,lactis,rham-B.lact,sienna 1 cap PO DAILY 30 days #30 caps 07/07/24 07/28/24 Rx 625 mg (10 billion cell) capsule (Advanced Probiotic) aripiprazole 5 mg tablet (Abilify) 2.5 mg (1/2 x 5 mg) PO QAM 30 days 07/07/24 07/28/24 Rx #15 tabs escitalopram oxalate 10 mg tablet 5 mg (1/2 x 10 mg) PO QAM 30 days 07/07/24 07/28/24 Rx #15 tabs hydrocortisone 10 mg tablet 10 mg PO 1500 #0 tabs 07/07/24 07/28/24 Rx (Cortef) hydrocortisone 10 mg tablet 20 mg (2 x 10 mg) PO QAM #0 tabs 07/07/24 07/28/24 Rx (Cortef) methocarbamol 500 mg tablet 500 mg PO DAILY 07/28/24 07/28/24 History mirabegron 25 mg tablet,extended 25 mg PO DAILY 07/28/24 07/28/24 History release 24 hr (Myrbetriq) sennosides 8.6 mg tablet (senna) 8.6 mg PO DAILY PRN Constipation 07/28/24 07/28/24 History Allergies Allergy/AdvReac Type Severity Reaction Status Date / Time Iodinated Contrast Media Allergy Severe LOVERSOL---CARDIAC Verified 06/22/24 13:[address] CONTRAST clindamycin Allergy Intermediate Rash Verified 06/22/24 13:25 chocolate flavor AdvReac Severe DIARRHEA/ Verified 06/22/24 13:25 Cannot take, interacts w/ medications. pembrolizumab [[facility]] AdvReac Intermediate myocarditis Verified 06/22/24 13:25 Past Med/Surg History Problem List Recurrent UTI Anxiety Delirium Elevated blood pressure reading Complicated UTI (urinary tract infection) (Acute) Chronic indwelling Devlin catheter (Acute) Mild cognitive impairment Hx of prostatic malignancy ~ 2013- s/p Lupron and XRT Myocarditis Primary bladder malignant neoplasm Orthostatic hypotension Coagulopathy (Acute) Obstructive sleep apnea (Acute) Adrenal insufficiency (Acute 06/04/14) Bladder cancer (Acute) S/P IVC filter Stage 3 chronic kidney disease (Acute) History of pulmonary embolism hx "many years ago" unknown etiology History of DVT (deep vein thrombosis) hx "many years ago" unknown etiology acute on chronic DVT during 12/2022 [facility] admission- Coumadin d/c'ed due to anemia and hematuria; IVC filter placed 12/28/22 COPD (chronic obstructive pulmonary disease) (Chronic) well controlled. uses Breo daily with exercise Aortic stenosis Mild per 12/2022 ECHO -follows annually with cardiology Medical History Fracture of multiple teeth Sacral pressure sore Ambulatory dysfunction Generalized weakness Anemia Urethral stricture Ascending aorta dilation Mild- 4.4cm per 11/2022 ECHO Obesity Venous insufficiency (chronic) (peripheral) Radiation cystitis Kidney stones x1 episode. no surgery needed. Cardiac arrest hx r/t IV Contrast Dye "many years ago" Allergic rhinitis Contrast media allergy Hiatal hernia Surgical History S/P cataract extraction History of right cataract extraction History of colonoscopy H/O sinus surgery History of appendectomy S/P TURP (status post transurethral resection of prostate) Status post cystoscopy (11/07/13) Family History Father Prostate cancer Brother Prostate cancer Mother Thyroid cancer Cancer Other No family history of adverse response to anesthesia Social History Smoking Status: Never smoker Tobacco Type: Cigarettes Second Hand Exposure: Yes; Do You Dip or Chew Tobacco: No; Hx Alcohol Use: No Hx Substance Use: No Preferred Language: Syriac Communication Ability: Impaired Visual Impairment: Limited Hearing Ability: Normal Licensing Court Magistrate Required: No Beliefs That Will Affect Care: None marital status: Current Living Situation: Spouse Current Living Situation Comment: at home with current occupational status: retired How many Children do You have: 0 Feels Safe at Home: Yes Safety Concerns: Feels Safe At This Time Diet: regular during the past year weight has: decreased > 10 lbs Seatbelt Use: always Do you think of yourself as: straight/heterosexual Gender Identity: Male Assistive Devices: Bedside Commode, Hospital Bed and Walker Physical Exam Vital Signs Vital Signs - 24 hr 07/28/24 21:46 07/28/24 22:00 Pulse Rate 78 Pulse Rate [Finger] 76 Respiratory Rate 15 Respiratory Effort / Characteristics Non-Labored Respiratory Depth Normal Blood Pressure [Left Arm] 140/82 Blood Pressure Mean [Left Arm] 101 Blood Pressure Position [Left Arm] Semi-fowlers Pulse Oximetry 99 Oxygen Delivery Method Room Air VITALS: Vitals are noted on the nurse's note and reviewed by myself. GENERAL: This is a 78-year-old male, anxious appearing. EYES: Pupils equal round and reactive to light and accommodation. MOUTH: Mucous membranes very dry. HEART: Regular rate and rhythm without murmurs gallops or rubs. LUNGS: Clear to auscultation bilaterally without wheezes, rales or rhonchi. ABDOMEN: Positive bowel sounds x 4. Nontender. MUSCULOSKELETAL: No deformities. No tenderness. NEURO: Patient was alert and oriented to person and place. Patient does repeat questions frequently and seems to have an element of short-term memory loss. On my examination he is repeatedly stating "you have to help me. I think I may have ingested iodine." Course Administered Medications Aripiprazole (Aripiprazole 5 Mg Tab) 2.5 mg PO QAM [facility] Stop: 08/28/24 08:59 Last Admin: 07/29/24 09:20 Dose: 2.5 mg Documented By: [id number] Cyanocobalamin (Cyanocobalamin (B-12) 500 Mcg Tablet) 1,000 mcg PO DAILY [facility] Stop: 08/28/24 08:59 Last Admin: 07/29/24 09:22 Dose: 1,000 mcg Documented By: [id number] Escitalopram Oxalate (Escitalopram Oxalate 10 Mg Tab) 5 mg PO QAM [facility] Stop: 08/28/24 08:59 Last Admin: 07/29/24 09:21 Dose: 5 mg Documented By: [id number] Ferrous Sulfate (Ferrous Sulfate 325 Mg Tab) 325 mg PO DAILY [facility] Stop: 08/28/24 08:59 Last Admin: 07/29/24 09:21 Dose: 325 mg Documented By: [id number] Fludrocortisone Acetate (Fludrocortisone Acetate 0.1 Mg Tab) 0.1 mg PO DAILY [facility] Stop: 08/28/24 08:59 Last Admin: 07/29/24 09:21 Dose: 0.1 mg Documented By: [id number] Fluticasone Furoate (Fluticasone Furoate 200mcg 14 Puffs/Inhaler) 1 puffs INH DAILY [facility] Stop: 08/28/24 08:59 Last Admin: 07/29/24 09:20 Dose: 1 puffs Documented By: [id number] Hydrocortisone (Hydrocortisone 10 Mg Tab) 10 mg PO 1500 [facility] Stop: 08/28/24 14:59 Last Admin: 07/29/24 16:38 Dose: 10 mg Documented By: [id number] Hydrocortisone (Hydrocortisone 10 Mg Tab) 20 mg PO QAM [facility] Stop: 08/28/24 08:59 Last Admin: 07/29/24 09:21 Dose: 20 mg Documented By: [id number] Piperacillin Sod/Tazobactam Sod (Zosyn) 4.5 gm in 100 mls @ 25 mls/hr IV Q8H [facility]; Protocol Stop: 08/08/24 03:59 Last Admin: 07/29/24 19:38 Dose: 25 mls/hr Documented By: Infusion: 07/29/24 16:37 Dose: Infused Documented By: [id number] Infusion: 07/29/24 13:50 Dose: 25 mls/hr Documented By: [id number] Infusion: 07/29/24 13:17 Dose: 0 mls/hr Documented By: [id number] Admin: 07/29/24 11:55 Dose: 25 mls/hr Documented By: [id number] Infusion: 07/29/24 06:33 Dose: Infused Documented By: Admin: 07/29/24 02:55 Dose: 25 mls/hr Documented By: CANDACE Lactobacillus Acidophilus (Advanced Probiotic 625 Mg Capsule) 1,250 mg PO DAILY [facility] Stop: 08/28/24 08:59 Last Admin: 07/29/24 09:20 Dose: 1,250 mg Documented By: [id number] Lidocaine (Lidocaine 5% 1 Patch) 2 patch TD DAILY [facility] Stop: 08/28/24 08:59 Last Admin: 07/29/24 09:23 Dose: 2 patch Documented By: [id number] Memantine (Memantine Hcl 10 Mg Tab) 10 mg PO BID [facility] Stop: 08/27/24 22:59 Last Admin: 07/29/24 20:46 Dose: 10 mg Documented By: Admin: 07/29/24 09:26 Dose: 10 mg Documented By: [id number] Admin: 07/29/24 02:18 Dose: Not Given Documented By: CANDACE Methocarbamol (Methocarbamol 500 Mg Tablet) 500 mg PO DAILY [facility] Stop: 08/28/24 08:59 Last Admin: 07/29/24 09:21 Dose: 500 mg Documented By: [id number] Miscellaneous (Remove Lidoderm Patch) 1 each N/A DAILY@2100 [facility] Stop: 08/28/24 20:59 Last Admin: 07/29/24 20:47 Dose: 1 each Documented By: CANDACE Multivitamins/Minerals (Cerovite Adv Formula Tab) 1 tab PO DAILY [facility] Stop: 08/28/24 08:59 Last Admin: 07/29/24 09:20 Dose: 1 tab Documented By: [id number] Nystatin (Nystatin Powder 15gm Btl) 1 appln EXT BID [facility] Stop: 08/28/24 08:59 Last Admin: 07/29/24 20:46 Dose: 1 appln Documented By: Admin: 07/29/24 09:19 Dose: 1 appln Documented By: [id number] Oxybutynin Chloride (Oxybutynin Chloride Xl 5 Mg Tabcr) 5 mg PO DAILY [facility] Stop: 08/28/24 08:59 Last Admin: 07/29/24 09:21 Dose: 5 mg Documented By: [id number] Pantoprazole Sodium (Pantoprazole 40 Mg Tab) 40 mg PO DAILY [facility] Stop: 08/28/24 08:59 Last Admin: 07/29/24 09:21 Dose: 40 mg Documented By: [id number] Sennosides (Senna 8.6 Mg Tab) 8.6 mg PO DAILY PRN PRN Reason: Constipation Stop: 08/27/24 22:49 Last Admin: 07/29/24 09:27 Dose: 8.6 mg Documented By: [id number] Umeclidinium/Vilanterol (Umeclidinium/Vilanterol 62.5/25mcg 7 Puffs/Inhaler) 1 puffs INH DAILY [facility] Stop: 08/28/24 08:59 Last Admin: 07/29/24 09:27 Dose: 1 puffs Documented By: [id number] Vibegron (Vibegron 75 Mg Tab) 75 mg PO DAILY [facility] Stop: 08/28/24 08:59 Last Admin: 07/29/24 09:21 Dose: 75 mg Documented By: [id number] Vitamin D (Cholecalciferol 125 Mcg (5,000 Units) Tab) 125 mcg PO DAILY [facility] Stop: 08/28/24 08:59 Last Admin: 07/29/24 09:21 Dose: 125 mcg Documented By: [id number] Discontinued Medications Sodium Chloride (Nss) 1,000 mls @ 999 mls/hr IV .Q1H1M ONE Stop: 07/28/24 19:31 Last Infusion: 07/28/24 19:55 Dose: Infused Documented By: Admin: 07/28/24 18:52 Dose: 999 mls/hr Documented By: [id number] Cefepime HCl (Maxipime 2000mg) 2,000 mg in 20 mls @ 5 mls/min IV NOW STA Stop: 07/28/24 19:48 Last Admin: 07/28/24 19:50 Dose: 5 mls/min Documented By: [email or web address] Piperacillin Sod/Tazobactam Sod (Zosyn) 4.5 gm in 100 mls @ 200 mls/hr IV NOW ONE; Protocol Stop: 07/28/24 20:59 Last Infusion: 07/28/24 21:11 Dose: Infused Documented By: Admin: 07/28/24 20:41 Dose: 200 mls/hr Documented By: [email or web address] Metoprolol Tartrate (Metoprolol Tartrate 1 Mg/Ml Vial) 2.5 mg IV NOW STA Stop: 07/28/24 20:21 Last Admin: 07/28/24 20:39 Dose: 2.5 mg Documented By: LORETTA Metoprolol Tartrate (Metoprolol Tartrate 1 Mg/Ml Vial) 2.5 mg IV NOW STA Stop: 07/29/24 02:18 Last Admin: 07/29/24 02:30 Dose: 2.5 mg Documented By: CANDACE Potassium Chloride (Potassium Chloride Crtab 20 Meq Tabcr) 20 meq PO NOW STA Stop: 07/29/24 08:07 Last Admin: 07/29/24 09:26 Dose: 20 meq Documented By: [id number] Medical Decision Making Differential Diagnosis Differential diagnosis includes UTI, infection, electrolyte imbalance, dehydration, fracture, head injury, among others. Laboratory Data Attestation: I reviewed the patient's lab results. 07/29/24 05:35 07/29/24 05:35 Lab Results 07/28/24 07/28/24 07/28/24 Range/Units 17:35 18:50 19:30 WBC 9.14 (4.8-10.8) K/ul RBC 3.88 L (4.70-6.10) M/uL Hgb 10.9 L (14.0-18.0) g/dl Hct 34.0 L (42.0-52.0) % MCV 87.6 (80.0-100.0) fL MCH 28.1 (25.0-34.0) pg MCHC 32.1 (32.0-36.0) g/dL RDW Std Deviation 48.9 H (36.4-46.3) fL RDW Coeff of Robert 15.5 H (11.5-14.5) % Plt Count 352 (130-400) K/uL MPV 8.8 L (9.4-12.4) fL Immature Gran % (Auto) 1.1 % Neut % (Auto) 81.1 % Lymph % (Auto) 12.8 % Dolores % (Auto) 4.4 % Eos % (Auto) 0.4 % Baso % (Auto) 0.2 % Neut # (Auto) 7.41 H (1.40-6.50) K/uL Lymph # (Auto) 1.17 L (1.20-3.40) K/uL Dolores # (Auto) 0.40 (0.11-0.59) K/uL Eos # (Auto) 0.04 (0.00-0.50) K/uL Baso # (Auto) 0.02 (0.00-0.20) K/uL Immature Gran # (Auto) 0.10 (0.01-0.20) K/uL PT 11.4 (9.0-12.0) Seconds INR 1.1 (0.9-1.1) APTT 28 (21-31) Seconds PTT Ratio 1.0 Sodium 141 (136-145) mmol/L Potassium 4.0 (3.5-5.1) mmol/L Chloride 105 (98-107) mmol/L Carbon Dioxide 25 (21-32) mmol/L Anion Gap 11 (3-11) BUN 16 (6-23) mg/dl Creatinine 1.22 (0.6-1.4) mg/dl Est Cr Clr Drug Dosing 66.3 ml/min eGFR 61.06 BUN/Creatinine Ratio 13.1 (10-20) Glucose 107 H (70-99(Fasting)) mg/dl Lactate 3.4 H* 2.2 H* (0.4-2.0) mmol/L Calcium 9.2 (8.6-10.3) mg/dl Magnesium 1.7 (1.7-2.4) mg/dl Total Bilirubin 0.5 (0.2-1.0) mg/dl AST 13 (13-39) U/L ALT 12 (7-52) U/L Alkaline Phosphatase 92 (34-104) U/L Troponin I High Sens 7.0 (0-20) pg/ml Total Protein 6.8 (6.0-8.3) gm/dl Albumin 3.4 (3.4-5.0) gm/dl Globulin 3.4 (2.5-4.0) gm/dl Albumin/Globulin Ratio 1.0 (0.9-2) Procalcitonin 0.10 (0-0.5) ng/ml Urine Color Yellow Urine Appearance Clear (Clear) Urine pH 8.5 H (4.5-7.5) Ur Specific [place] 1.012 (1.000-1.030) Urine Protein 2+ H (Negative) Urine Glucose (UA) Negative (Negative) Urine Ketones Negative (Negative) Urine Blood 3+ H (Negative) Urine Nitrite Negative (Negative) Urine Bilirubin Negative (Negative) Urine Urobilinogen Negative (Negative) Ur Leukocyte Esterase 2+ H (Negative) Urine WBC (Auto) >50 H (0-5) /hpf Urine RBC (Auto) >20 H (0-2) /hpf U Hyaline Cast (Auto) 0-2 (0-2) /lpf U Epithel Cells (Auto) 0-2 (0-2) /hpf Urine Bacteria (Auto) 3+ H (None Seen) Imaging Data Attestation: I personally reviewed and interpreted this imaging study as follows: Radiologist's Impression: Chest X-Ray 07/28/24 17:44 EXAM: Radiograph of the Chest 1 View INDICATION: Sepsis. TECHNIQUE: Frontal view of the chest. COMPARISON: 05/31/2024 FINDINGS: Lungs and pleural spaces: Stable interstitial and left basilar scarring. No consolidation or pulmonary edema. No pleural effusion or pneumothorax. Heart: Shape and configuration within normal limits allowing for technique. Mediastinum: Normal contour. Bones/joints: No fracture, erosion or dislocation. Soft tissues: No abnormality noted. No radiopaque foreign body noted. Vasculature: Stable ectatic aorta. Upper abdomen: No abnormality noted. IMPRESSION: Stable chronic changes. No acute disease. ACT 112: Negative or not required by law. Electronically signed by Milady Ford 07-28-2024 6:55 PM Pelvis X-Ray 07/28/24 17:45 EXAM: Radiographs of the Pelvis 1 View INDICATION: Sepsis. TECHNIQUE: Frontal view of the pelvis. COMPARISON: No relevant prior studies available. FINDINGS: Limitations: None. Bones/joints: Trabecular coarsening and thickening of the right pubic bones and acetabulum noted likely related to Paget's. There is mild osteoarthritic narrowing of each hip. No fracture noted. No osseous destruction. Soft tissues: No abnormality noted. No radiopaque foreign body noted. Vasculature: Inferior vena cava filter noted at L3-L. IMPRESSION: 1. No acute abnormality. 2. 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 ACT 112: Negative or not required by law. Electronically signed by Logan Milady 07-28-2024 6:[address] 07/28/24 18:31 Exam(s): CT HEAD Without Contrast EXAM: CT Head Without Intravenous Contrast CLINICAL HISTORY: Reason for exam: fall, confusion. TECHNIQUE: Axial computed tomography images of the head/brain without intravenous contrast. CTDI is 77.28 mGy and DLP is 1250.21 mGy-cm. Automated exposure control was utilized for the study. A dose lowering technique was utilized adhering to the principles of ALARA. COMPARISON: 06/27/24 FINDINGS: Brain: Generalized parenchymal volume loss. Mild chronic small vessel ischemic change. Ware-white matter differentiation maintained. No hemorrhage, mass effect, parenchymal edema, or midline shift. Ventricles: Unremarkable. No hydrocephalus. Bones/joints: Unremarkable. No acute fracture. Soft tissues: Unremarkable. Vasculature: Intracranial atherosclerosis. Sinuses: Mucosal thickening in the sphenoid sinus. Mastoid air cells: Unremarkable as visualized. No mastoid effusion. Orbits: Lens replacement. IMPRESSION: No acute intracranial process. Electronically signed by: Nicole Lambert M.D. 07/28/24 19:57 PM MDM Narrative This patient is a 78-year-old male who presents to the emergency department for evaluation after a fall. On my assessment patient seems to be disoriented. On review of his records, he has recurrent UTIs and does develop confusion with these. Urinalysis is again suggestive of UTI. Patient did sustain a fall although there is no evidence of significant injury on my exam. CT of the head, chest x-ray and pelvis x-ray performed and were negative. Labs with initial lactate of 3.4. Patient given 1 L of IV fluids and cefepime. Recheck of lactate was down to 2.2. Patient's care discussed with the hospitalist service who agreed to evaluate the patient for further care. Discharge Plan Visit Data Chief Complaint: Hematuria Stated Complaint: TAILBONE PAIN, ED Provider: [facility] ED Midlevel Provider: Justyna Roy Patient Disposition: Admitted As Inpatient Discharge Instructions Interventions: ED Discharge Assessment Last Done: 07/29/24 00:55
--- NOTE | 2024-07-28 20:28 | History & Physical Report ---
Date of Service July 28, 2024 Assessment & Plan (1) Chronic indwelling Devlin catheter: (2) Hematuria: (3) Hx of prostatic malignancy: (4) Orthostatic hypotension: (5) Stage 3 chronic kidney disease: (6) Adrenal insufficiency: Plan: Assessment and Plan per Dr Chung. See addendum. 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 Per chart review Recent hospitalization 06/23/2024-07/07/2024 for UTI and mental status changes and during hospitalization had hospital induced delirium, anxiety. Psychiatry saw patient and added escitalopram and Abilify. [facility] Dis[facility] home on 07/21/2024. Reports getting home health and home PT. Reports having continued ambulatory dysfunction. Limited history obtained from patient secondary to memory issues but assists in history. Spoke to on phone. Patient has had ambulatory dysfunction over past couple of months. using wheelchair when out of house and uses walker inside house. reports she went out to pick up man his prescription today and was called by her neighbor who reported found patient on the floor at the bottom of the stairs (4 stairs) and reports patient was awake and alert. States noticed blood in Devlin bag yesterday and continued today. Per she feels he is at baseline mental status as he has been recently. Denies any known fever, diarrhea. Patient currently in ER is awake and alert and oriented to person and knows he is in hospital facility. He denies any pain, BALTAZAR, SOB, abdominal pain, extremity pain, cough. He states he feels a little dizzy with walking. Allergies Allergy/AdvReac Type Severity Reaction Status Date / Time Iodinated Contrast Media Allergy Severe LOVERSOL---CARDIAC Verified 06/22/24 13:[address] CONTRAST clindamycin Allergy Intermediate Rash Verified 06/22/24 13:25 chocolate flavor AdvReac Severe DIARRHEA/ Verified 06/22/24 13:25 Cannot take, interacts w/ medications. [facility] AdvReac Intermediate myocarditis Verified 06/22/24 13:25 Home Medications Medication Instructions Recorded Confirmed Type acetaminophen 325 mg tablet 650 mg (2 x 325 mg) PO Q4H PRN 06/08/24 07/28/24 Rx fever or pain #30 tabs albuterol sulfate 90 mcg/actuation 2 puff inhalation Q4H PRN 06/08/24 07/28/24 Rx aerosol inhaler Shortness Of Breath Or Wheezing #16 grams ascorbic acid (vitamin C) 1,000 mg 1,000 mg PO DAILY #30 tabs 06/08/24 07/28/24 Rx tablet aspirin 81 mg tablet,delayed 81 mg PO DAILY #30 tabs 06/08/24 07/28/24 Rx release cholecalciferol (vitamin D3) 125 125 mcg PO DAILY #30 tabs 06/08/24 07/28/24 Rx mcg (5,000 unit) tablet (Vitamin D3) cyanocobalamin (vitamin B-12) 1,000 mcg PO DAILY #30 tabs 06/08/24 07/28/24 Rx 1,000 mcg tablet epinephrine 0.3 mg/0.3 mL 0.3 mg (0.3 mL) IM UD PRN 06/08/24 07/28/24 Rx injection, auto-injector Anaphylaxis #3 ea ferrous sulfate 325 mg (65 mg 325 mg PO DAILY #30 tabs 06/08/24 07/28/24 Rx iron) tablet,delayed release fludrocortisone 0.1 mg tablet 0.1 mg PO DAILY #30 tabs 06/08/24 07/28/24 Rx fluticasone fur. 200 mcg-umeclid 1 inh inhalation DAILY #1 ea 06/08/24 07/28/24 Rx 62.5 mcg-vilant 25 mcg inhalat.powder (Trelegy Ellipta) lidocaine 5 % topical patch 2 patch transdermal DAILY #20 ea 06/08/24 07/28/24 Rx magnesium chloride 64 mg 64 mg PO BID #60 tabs 06/08/24 07/28/24 Rx (magnesium chloride) tablet,delayed release memantine 10 mg tablet 10 mg PO BID #60 tabs 06/08/24 07/28/24 Rx multivitamin with minerals-folic 1 tab PO DAILY #30 tabs 06/08/24 07/28/24 Rx acid 200 mcg chewable tablet (Multivitamin Gummies) nystatin 100,000 unit/gram topical 1 applic EXT BID #30 grams 06/08/24 07/28/24 Rx powder (Nystop) omeprazole 20 mg capsule,delayed 20 mg PO DAILY #30 caps 06/08/24 07/28/24 Rx release solifenacin 5 mg tablet 5 mg PO DAILY #30 tabs 06/08/24 07/28/24 Rx L.acidop,casei,lactis,rham-B.lact,sienna 1 cap PO DAILY 30 days #30 caps 07/07/24 07/28/24 Rx 625 mg (10 billion cell) capsule (Advanced Probiotic) aripiprazole 5 mg tablet (Abilify) 2.5 mg (1/2 x 5 mg) PO QAM 30 days 07/07/24 07/28/24 Rx #15 tabs escitalopram oxalate 10 mg tablet 5 mg (1/2 x 10 mg) PO QAM 30 days 07/07/24 07/28/24 Rx #15 tabs hydrocortisone 10 mg tablet 10 mg PO 1500 #0 tabs 07/07/24 07/28/24 Rx (Cortef) hydrocortisone 10 mg tablet 20 mg (2 x 10 mg) PO QAM #0 tabs 07/07/24 07/28/24 Rx (Cortef) methocarbamol 500 mg tablet 500 mg PO DAILY 07/28/24 07/28/24 History mirabegron 25 mg tablet,extended 25 mg PO DAILY 07/28/24 07/28/24 History release 24 hr (Myrbetriq) sennosides 8.6 mg tablet (senna) 8.6 mg PO DAILY PRN Constipation 07/28/24 1 09/28/23 History Past Med/Surg History Problem List Recurrent UTI Anxiety Delirium Elevated blood pressure reading Complicated UTI (urinary tract infection) (Acute) Chronic indwelling Devlin catheter (Acute) Mild cognitive impairment Hx of prostatic malignancy ~ 2013- s/p Lupron and XRT Myocarditis Primary bladder malignant neoplasm Orthostatic hypotension Coagulopathy (Acute) Obstructive sleep apnea (Acute) Adrenal insufficiency (Acute 06/04/14) Bladder cancer (Acute) S/P IVC filter Stage 3 chronic kidney disease (Acute) History of pulmonary embolism hx "many years ago" unknown etiology History of DVT (deep vein thrombosis) hx "many years ago" unknown etiology acute on chronic DVT during 12/2022 [facility] admission- Coumadin d/c'ed due to anemia and hematuria; IVC filter placed 12/28/22 COPD (chronic obstructive pulmonary disease) (Chronic) well controlled. uses Breo daily with exercise Aortic stenosis Mild per 12/2022 ECHO -follows annually with cardiology Medical History Fracture of multiple teeth Sacral pressure sore Ambulatory dysfunction Generalized weakness Anemia Urethral stricture Ascending aorta dilation Mild- 4.4cm per 11/2022 ECHO Obesity Venous insufficiency (chronic) (peripheral) Radiation cystitis Kidney stones x1 episode. no surgery needed. Cardiac arrest hx r/t IV Contrast Dye "many years ago" Allergic rhinitis Contrast media allergy Hiatal hernia Surgical History S/P cataract extraction History of right cataract extraction History of colonoscopy H/O sinus surgery History of appendectomy S/P TURP (status post transurethral resection of prostate) Status post cystoscopy (11/07/13) Family History Father Prostate cancer Brother Prostate cancer Mother Thyroid cancer Cancer Other No family history of adverse response to anesthesia Social History Smoking Status: Never smoker Tobacco Type: Cigarettes Second Hand Exposure: Yes; Do You Dip or Chew Tobacco: No; Hx Alcohol Use: No Hx Substance Use: No Preferred Language: Liberian Communication Ability: Impaired Visual Impairment: Limited Hearing Ability: Normal Pre Press Manager Required: No Beliefs That Will Affect Care: None marital status: Current Living Situation: Spouse Current Living Situation Comment: at home with current occupational status: retired How many Children do You have: 0 Feels Safe at Home: Yes Safety Concerns: Feels Safe At This Time Diet: regular during the past year weight has: decreased > 10 lbs Seatbelt Use: always Do you think of yourself as: straight/heterosexual Gender Identity: Male Assistive Devices: Walker Review of Systems Review of Systems: Unobtainable due to cognitive status Physical Exam Physical Exam: General: no distress, WDWN Head: normocephalic, atraumatic Eyes: PERRL, conjunctiva non-injected, anicteric ENT: normal inspection external ears, nose, mucous membranes moist Neck: supple, trachea midline Lungs: clear, no respiratory distress, no wheezing/rhonchi/rales CV: RRR, + murmur, trace pretibial edema Abd: normal BS, soft, non-tender Ext: no cyanosis, no calf tenderness, +skin discoloration lower extremity Neuro: Alert, oriented to person and knows in hospital but unable to say name. diffuse weakness without focal deficits noted Skin: warm, dry Results & Data Results & Data Vital Signs (Past 12 Hours) Vital Signs Temp Pulse Pulse Resp BP BP Pulse Ox 07/28/24 18:37 86 18 160/94 H 100 07/28/24 17:36 83 07/28/24 17:29 37.1 C 79 18 159/89 H 98 O2 Del Method 07/28/24 18:37 Room Air 07/28/24 17:36 07/28/24 17:29 Room Air Laboratory Results Short CBC 07/28/24 Range/Units 17:35 WBC 9.14 (4.8-10.8) K/ul Hgb 10.9 L (14.0-18.0) g/dl Hct 34.0 L (42.0-52.0) % Plt Count 352 (130-400) K/uL BMP 07/28/24 17:35 Sodium 141 Potassium 4.0 Chloride 105 Carbon Dioxide 25 BUN 16 Creatinine 1.22 Glucose 107 H Calcium 9.2 Liver Function 07/28/24 Range/Units 17:35 Total Bilirubin 0.5 (0.2-1.0) mg/dl AST 13 (13-39) U/L ALT 12 (7-52) U/L Alkaline Phosphatase 92 (34-104) U/L Albumin 3.4 (3.4-5.0) gm/dl Urine 07/28/24 Range/Units 18:50 Urine Color Yellow Urine Appearance Clear (Clear) Urine pH 8.5 H (4.5-7.5) Ur Specific [place] 1.012 (1.000-1.030) Urine Protein 2+ H (Negative) Urine Glucose (UA) Negative (Negative) Diagnostic Findings Chest X-Ray 07/28/24 17:44 EXAM: Radiograph of the Chest 1 View INDICATION: Sepsis. TECHNIQUE: Frontal view of the chest. COMPARISON: 05/31/2024 FINDINGS: Lungs and pleural spaces: Stable interstitial and left basilar scarring. No consolidation or pulmonary edema. No pleural effusion or pneumothorax. Heart: Shape and configuration within normal limits allowing for technique. Mediastinum: Normal contour. Bones/joints: No fracture, erosion or dislocation. Soft tissues: No abnormality noted. No radiopaque foreign body noted. Vasculature: Stable ectatic aorta. Upper abdomen: No abnormality noted. IMPRESSION: Stable chronic changes. No acute disease. ACT 112: Negative or not required by law. Electronically signed by Milady Ford 07-28-2024 6:55 PM Pelvis X-Ray 07/28/24 17:45 EXAM: Radiographs of the Pelvis 1 View INDICATION: Sepsis. TECHNIQUE: Frontal view of the pelvis. COMPARISON: No relevant prior studies available. FINDINGS: Limitations: None. Bones/joints: Trabecular coarsening and thickening of the right pubic bones and acetabulum noted likely related to Paget's. There is mild osteoarthritic narrowing of each hip. No fracture noted. No osseous destruction. Soft tissues: No abnormality noted. No radiopaque foreign body noted. Vasculature: Inferior vena cava filter noted at L3-L. IMPRESSION: 1. No acute abnormality. 2. 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 ACT 112: Negative or not required by law. Electronically signed by Milady Ford 07-28-2024 6:[address] 07/28/24 18:31 Exam(s): CT HEAD Without Contrast EXAM: CT Head Without Intravenous Contrast CLINICAL HISTORY: Reason for exam: fall, confusion. TECHNIQUE: Axial computed tomography images of the head/brain without intravenous contrast. CTDI is 77.28 mGy and DLP is 1250.21 mGy-cm. Automated exposure control was utilized for the study. A dose lowering technique was utilized adhering to the principles of ALARA. COMPARISON: 06/27/24 FINDINGS: Brain: Generalized parenchymal volume loss. Mild chronic small vessel ischemic change. Ware-white matter differentiation maintained. No hemorrhage, mass effect, parenchymal edema, or midline shift. Ventricles: Unremarkable. No hydrocephalus. Bones/joints: Unremarkable. No acute fracture. Soft tissues: Unremarkable. Vasculature: Intracranial atherosclerosis. Sinuses: Mucosal thickening in the sphenoid sinus. Mastoid air cells: Unremarkable as visualized. No mastoid effusion. Orbits: Lens replacement. IMPRESSION: No acute intracranial process. Electronically signed by: Nicole Lambert M.D. 07/28/24 19:57 PM Supervising Physician Co-Signing Physician Notes IM ATTENDING : Patient seen and examined. History obtained from patient and records. Concur with salient points upon review of preceding documentation by Ms. Tamera Schmidt PA-C. I take responsibility for plan of care below. In addition, highest SBP 160s documented at the ER FINAL ASSESSMENT AND PLAN as follows : Complicated UTI, recurrent infections, no sepsis for now History of BPH/prostate cancer/history of bladder cancer status post surgery Painless hematuria secondary to above Acute on chronic anemia secondary to above Hypertension secondary to illness, currently not on maintenance medications due to history orthostatic hypotension valvular heart disease (moderate , mild AR) hypertension, slightly elevated history PE DVT status post IVC filter placement hx Keytruda myocarditis/history of adrenal insufficiency on chronic steroid/fludrocortisone Rx Underlying pulmonary hypertension, hx bronchial asthma/COPD, ANDRZEJ (not currently using CPAP machine due to need for new orders as per PCP notes) Mild cognitive impairment, patient mentating well on regimen Functional disability/ambulatory dysfunction, patient seems incapable of caring for patient with chronic medical conditions at home given frequent readmissions Medical telemetry given elevated BP IV Lopressor 1 dose now Consider stopping fludrocortisone if with persistent BP elevation Urine CS, Zosyn Follow H&H, hold aspirin until H&H stable PT OT eval, possible placement if patient/ agreeable DVT prophylaxis. SCDs Re: Hematuria Full code Patient requests for to be given updates regarding care. Ms. Ivet High, contact numbers [phone]. Text document was generated using [employer] voice recognition software. It may contain grammatical or spelling errors. Kindly contact undersigned for clarification of any documentation item in quest (2) Hematuria Hematuria type: gross Qualified Code(s): R31.0 - Gross hematuria (5) Stage 3 chronic kidney disease Chronic kidney disease stage 3 subtype: unspecified whether 3a or 3b Qualified Code(s): N18.30 - Chronic kidney disease, stage 3 unspecified
[2024-07-28] MEDS: METOPROLOL TARTRATE 1 MG/ML VIAL IV STA (20:39)
[2024-07-28] MEDS: PIPERACILLIN/TAZOBACTAM 4.5 GM/100 ML BAG IV ONE (20:41)
[2024-07-28] MEDS ORDERED: PROMETHAZINE 6.25 MG/50.25 ML BAG IV PRN (22:49)
[2024-07-28 23:33] LABS: Hematocrit (blood only) 30.3 % (42.0-52.0); Hemoglobin 9.8 g/dl (14.0-18.0)
[2024-07-29] MEDS: MEMANTINE HCL 10 MG TAB PO SCH (02:18)
[2024-07-29] MEDS: METOPROLOL TARTRATE 1 MG/ML VIAL IV STA (02:30)
[2024-07-29] MEDS: PIPERACILLIN/TAZOBACTAM 4.5 GM/100 ML BAG IV SCH (02:55)
[2024-07-29 06:09] LABS: Basophils # (auto) 0.03 K/uL (0.00-0.20); Basophils % (auto) 0.4 %; Eosinophils # (auto) 0.15 K/uL (0.00-0.50); Hematocrit (blood only) 29.9 % (42.0-52.0); Hemoglobin 9.5 g/dl (14.0-18.0); Immature Granulocytes # (auto) 0.02 K/uL (0.01-0.20); Immature Granulocytes % (auto) 0.3 %; Lymphocytes # (auto) 1.79 K/uL (1.20-3.40); Lymphocytes % (auto) 24.3 %; Mean Corpuscular Hemoglobin 27.5 pg (25.0-34.0); Mean Corpuscular Hgb Conc 31.8 g/dL (32.0-36.0); Mean Corpuscular Volume 86.7 fL (80.0-100.0); Mean Platelet Volume 8.5 fL (9.4-12.4); Monocytes % (auto) 8.1 %; Neutrophils # (auto) 4.78 K/uL (1.40-6.50); Neutrophils % (auto) 64.9 %; Platelet Count 284 K/uL (130-400); RDW Coefficient of Variation 15.5 % (11.5-14.5); RDW Standard Deviation 48.5 fL (36.4-46.3); Red Blood Count 3.45 M/uL (4.70-6.10); White Blood Count 7.37 K/ul (4.8-10.8)
[2024-07-29 06:18] LABS: Calcium 8.2 mg/dl (8.6-10.3); Creatinine Clr Calc Pharmacy 69.3 ml/min; Potassium 3.4 mmol/L (3.5-5.1)
[2024-07-29] MEDS ORDERED: NON-FORMULARY MEDICATION (Fluticasone-Umeclidin-Vilanter [Trelegy Ellipta] 200-62.5-25 mcg INH SCH (09:00)
[2024-07-29] MEDS: NYSTATIN POWDER 15GM BTL EXT SCH (09:19)
[2024-07-29] MEDS: FLUTICASONE FUROATE 200MCG 14 PUFFS/INHALER INH SCH (09:20)
[2024-07-29] MEDS: ADVANCED PROBIOTIC 625 MG CAPSULE PO SCH (09:20)
[2024-07-29] MEDS: ARIPiprazole 5 MG TAB PO SCH (09:20)
[2024-07-29] MEDS: CEROVITE ADV FORMULA TAB PO SCH (09:20)
[2024-07-29] MEDS: HYDROCORTISONE 10 MG TAB PO SCH ×2 (09:21→16:38)
[2024-07-29] MEDS: ESCITALOPRAM OXALATE 10 MG TAB PO SCH (09:21)
[2024-07-29] MEDS: CHOLECALCIFEROL 125 MCG (5,000 UNITS) TAB PO SCH (09:21)
[2024-07-29] MEDS: FERROUS SULFATE 325 MG TAB PO SCH (09:21)
[2024-07-29] MEDS: OXYBUTYNIN CHLORIDE XL 5 MG TABCR PO SCH (09:21)
[2024-07-29] MEDS: METHOCARBAMOL 500 MG TABLET PO SCH (09:21)
[2024-07-29] MEDS: PANTOprazole 40 MG TAB PO SCH (09:21)
[2024-07-29] MEDS: FLUDROCORTISONE ACETATE 0.1 MG TAB PO SCH (09:21)
[2024-07-29] MEDS: VIBEGRON 75 MG TAB PO SCH (09:21)
[2024-07-29] MEDS: CYANOCOBALAMIN (B-12) 500 MCG TABLET PO SCH (09:22)
[2024-07-29] MEDS: LIDOCAINE 5% 1 PATCH TD SCH (09:23)
[2024-07-29] MEDS: POTASSIUM CHLORIDE CRTAB 20 MEQ TABCR PO STA (09:26)
[2024-07-29] MEDS: UMECLIDINIUM/VILANTEROL 62.5/25MCG 7 PUFFS/INHALER INH SCH (09:27)
[2024-07-29] MEDS: SENNA 8.6 MG TAB PO PRN (09:27)
--- NOTE | 2024-07-29 10:29 | Hospitalist Progress Note ---
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 Unwitnessed Fall Recurrent urinary tract infection, no sepsis for now CAUTI History of BPH/prostate cancer/history of bladder cancer status post surgery patient with chronic indwelling Devlin UA suggestive of infection, urine culture currently growing Klebsiella Continue with IV Zosyn at this time, adjust based on cultures. ID consult once more given frequent infections Fall likely in setting of acute infection PT OT eval Continue to monitor Painless hematuria Acute on chronic anemia hemoglobin of 9.5 stable Continue home iron B12 supplements If further decrease consider a.m. anemia panel Continue to monitor H&H Consider urology consult Failure to thrive Malnutrition patient's noting decreased p.o. intake Dietitian consulted, appreciate recs Chronic Medical Problems: Hypertension secondary to illness, currently not on maintenance medications due to history orthostatic hypotension valvular heart disease (moderate , mild AR) hypertension, stable at this time history PE DVT status post IVC filter placement hx Keytruda myocarditis/history of adrenal insufficiency on chronic steroid/fludrocortisone Rx Underlying pulmonary hypertension, hx bronchial asthma/COPD, ANDRZEJ (not currently using CPAP machine due to need for new orders as per PCP notes) Mild cognitive impairment, patient mentating well on regimen Functional disability/ambulatory dysfunction, PT/OT- will likely need acute rehab placement once more continue other home meds as ordered Diet: HH DVT prophylaxis: SCDs Re: Hematuria Full code Dispo: PT OT eval, possible placement if patient/ agreeable Admission and Anticipated Discharge Date Admission Date: July 28, 2024 Subjective Patient was seen in the a.m., resting in bed Stated that he did not feel well but denied definitive symptoms Call placed to patient's and she was updated about plan of care. Review of Systems Review of Systems: All systems reviewed & are unremarkable except as noted in Subjective Physical Exam Physical Exam: General: Alert, oriented. No acute distress Psych: Appropriate mood and affect Neuro: Difficulty with movements in the bed HEENT: NC/AT CV: RRR, +murmur Resp: Breath sounds clear bilaterally, no increased effort of breathing Abdomen: Soft, tender Extremities: No edema in lower extremities bilaterally. Results & Data Results & Data Vital Signs (Past 12 Hours) Vital Signs Temp Pulse Pulse Resp BP BP Pulse Ox 07/29/24 08:41 36.8 C 74 20 112/65 91 07/29/24 03:58 37.1 C 68 20 145/72 H 97 07/29/24 02:56 70 155/77 H 07/29/24 02:30 72 07/29/24 01:35 07/29/24 01:25 36.4 C L 78 18 168/89 H 100 07/29/24 01:18 79 07/29/24 00:55 O2 Del Method 07/29/24 08:41 Room Air 07/29/24 03:58 Room Air 07/29/24 02:56 07/29/24 02:30 07/29/24 01:35 Room Air 07/29/24 01:25 Room Air 07/29/24 01:18 07/29/24 00:55 Room Air Diagnostic Findings Chest X-Ray 07/28/24 17:44 EXAM: Radiograph of the Chest 1 View INDICATION: Sepsis. TECHNIQUE: Frontal view of the chest. COMPARISON: 05/31/2024 FINDINGS: Lungs and pleural spaces: Stable interstitial and left basilar scarring. No consolidation or pulmonary edema. No pleural effusion or pneumothorax. Heart: Shape and configuration within normal limits allowing for technique. Mediastinum: Normal contour. Bones/joints: No fracture, erosion or dislocation. Soft tissues: No abnormality noted. No radiopaque foreign body noted. Vasculature: Stable ectatic aorta. Upper abdomen: No abnormality noted. IMPRESSION: Stable chronic changes. No acute disease. ACT 112: Negative or not required by law. Electronically signed by Milady Ford 07-28-2024 6:55 PM Pelvis X-Ray 07/28/24 17:45 EXAM: Radiographs of the Pelvis 1 View INDICATION: Sepsis. TECHNIQUE: Frontal view of the pelvis. COMPARISON: No relevant prior studies available. FINDINGS: Limitations: None. Bones/joints: Trabecular coarsening and thickening of the right pubic bones and acetabulum noted likely related to Paget's. There is mild osteoarthritic narrowing of each hip. No fracture noted. No osseous destruction. Soft tissues: No abnormality noted. No radiopaque foreign body noted. Vasculature: Inferior vena cava filter noted at L3-L. IMPRESSION: 1. No acute abnormality. 2. 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 ACT 112: Negative or not required by law. Electronically signed by Milady Ford 07-28-2024 6:[address] 07/28/24 18:31 Exam(s): CT HEAD Without Contrast EXAM: CT Head Without Intravenous Contrast CLINICAL HISTORY: Reason for exam: fall, confusion. TECHNIQUE: Axial computed tomography images of the head/brain without intravenous contrast. CTDI is 77.28 mGy and DLP is 1250.21 mGy-cm. Automated exposure control was utilized for the study. A dose lowering technique was utilized adhering to the principles of ALARA. COMPARISON: 06/27/24 FINDINGS: Brain: Generalized parenchymal volume loss. Mild chronic small vessel ischemic change. Ware-white matter differentiation maintained. No hemorrhage, mass effect, parenchymal edema, or midline shift. Ventricles: Unremarkable. No hydrocephalus. Bones/joints: Unremarkable. No acute fracture. Soft tissues: Unremarkable. Vasculature: Intracranial atherosclerosis. Sinuses: Mucosal thickening in the sphenoid sinus. Mastoid air cells: Unremarkable as visualized. No mastoid effusion. Orbits: Lens replacement. IMPRESSION: No acute intracranial process. Electronically signed by: Nicole Lambert M.D. 07/28/24 19:57 PM (4) Stage 3 chronic kidney disease Chronic kidney disease stage 3 subtype: unspecified whether 3a or 3b Qualified Code(s): N18.30 - Chronic kidney disease, stage 3 unspecified
--- OUTSIDE RECORDS SUMMARY | 2024-07-30 07:13 | External Medical Summary | Summary of Care ---
Author Name Unknown Organization [facility] Address [address] [facility] [place] [address] Phone [phone] Care Team Providers Care Medical Record Administrator Name Role Phone Arnold Willis MD Primary Care Provider +1- [phone] Encounter Details Date Type Department Care Team (Late st Contact Info) Description 07/27/2024 [facility] [address] [place] [address] Arnold Willis MD [address] [facility] [place] [address] Allergies Active Allergy Reactions Criticality Noted Date Comments Chocolate Diarrhea 05/14/2023 Chocolate Flavoring Agent (Non-Screening) High 10/09/2023 Other Reaction(s): DIARRHEA/ Cannot take, interacts w/ medications. Clindamycin Hcl 09/24/2005 rash Cranberry 10/20/2023 Iodinated Contrast Media 10/01/2015 Ioversol Other (Please comment) High 08/10/[address] IV DYE Pembrolizumab High 10/10/2023 Other Reaction(s): myocarditis documented as of this encounter (statuses as of 07/27/2024) Medications Syringe/Needle, Disp, 25G X 1-1/2" 3 ML MISC To use with injection of hydrocortisone if needed 2 Each 5 08/31/19 16 Active Additional Information Patient not taking.Reported on 07/24/2024 Breo Ellipta 200-25 MCG/ACT Inhalation Aerosol Powder Breath Activated (fluticasone furoate-vilanter ol) INHALE 1 PUFF BY MOUTH EVERY DAY 180 Each 3 03/14/20 24 Active Fluticasone Propionate 50 MCG/ACT Nasal Suspension (Flonase) SPRAY 2 SPRAYS INTO EACH NOSTRIL IN THE MORNING 16 mL 3 10/18/19 23 Active Trelegy Ellipta 200-62.5-25 MCG/ACT Aerosol Powder Breath Activated (Fluticasone-Ume clidinium-Vilant emily) Inhale 1 Puff by mouth every evening. 60 Blister Dosing Unit 11 10/27/19 23 Active EpiPen 2-Pedro 0.3 MG/0.3ML Injection Solution Auto-injectorInd ications:Anaphyl axis, sequela USE DIRECTED 1 Each 01/28/20 Active Additional Information Patient not taking.Reported on 07/24/2024 Multi Adult Gummies Oral Tablet Chewable Take by mouth. Active Iron 325 (65 [...] Take 119 g by mouth once. Active [facility] W[facility]/Burn Dressing External GelIndications:P ressure injury of sacral region, stage 2 (HCC) Apply topically to affected area daily. Apply to pressure ulcer of buttocks. 88 mL 3 11/12/19 24 Active Additional Information Patient not taking.Reported on 07/24/2024 predniSONE 20 MG Oral Tablet (Deltasone)Indic ations:Urothelia l carcinoma of bladder (HCC),Other acute myocarditis TAKE 4 TABLETS BY MOUTH EVERY MORNING WITH FOOD 120 Tablet 1 11/26/19 Active Additional Information Patient not taking.Reported on 07/24/2024 ProAir HFA 108 (90 Base) MCG/ACT Inhalation [...] MG Oral Tablet Chewable Take by mouth. Active Magnesium Hydroxide 400 MG/5ML Oral Suspension (Milk of Magnesia) Take 30 mL by mouth as needed for Constipation. Active Memantine HCl 5 MG Oral Tablet (Namenda)Indicat ions:MCI (mild cognitive impairment) 5 mg once a day for a week and then 5 mg twice a day 60 Tablet 2 02/01/20 24 Active Solifenacin Succinate 5 MG Oral Tablet (VESIcare) Take 1 Tablet by mouth in the morning. 30 Tablet 6 02/28/20 24 Active Fludrocortisone Acetate 0.1 MG Oral Tablet (Florinef) Take 1 Tablet by mouth in the morning. 30 Tablet 11 03/07/20 24 Active Sulfamethoxazole -Trimethoprim 800-160 MG Oral Tablet (Bactrim DS)Indications:U rothelial carcinoma of bladder (HCC),Other acute myocarditis 1 tablet 3 days a week ( Wednesday, Wednesday, Wednesday). 36 Tablet 03/20/20 24 Active Ampicillin 500 MG Oral Capsule Take 1 Capsule by mouth in the morning and 1 Capsule at noon and 1 Capsule in the evening and 1 Capsule before bedtime. 28 Capsule 04/27/20 24 Active Additional Information Patient not taking.Reported on 07/24/2024 Magnesium Cl-Calcium Carbonate 71.5-119 MG Oral Tablet Delayed Release Take 64 mg by mouth in the morning and 64 mg before bedtime. 01/17/20 24 Active Hydrocortisone 10 MG Oral Tablet (Cortef)Indicati ons:Adrenal insufficiency (HCC) Take 20 mg in AM and 10 mg in afternoon 90 Tablet 5 07/24/20 24 Active ARIPiprazole 2.5 MG OR TABS Take by mouth daily. Active Escitalopram Oxalate 5 MG Oral Tablet (Lexapro) Take 1 Tablet by mouth in the morning. Active Lactobacillus Probiotic Oral Tablet Take by mouth. Activ e Mirabegron ER 25 MG Oral Tablet Extended Release 24 Hour (Myrbetriq) Take 1 Tablet by mouth in the morning. Active Senna 8.6 MG Oral Capsule Take by mouth. Ac tive Tab-A-Kika Oral Tablet Take 1 Tablet by mouth in the morning. Active Vitamin B-12 1000 MCG/15ML Oral Liquid Take by mouth. Act anthony Vitamin C ER 1000-100 MG Oral Tablet Extended Release Take by mouth. Activ e Nitroglycerin 0.4 MG Sublingual Tablet Sublingual (Nitrostat) Place 1 Tablet under the tongue every 5 minutes as needed for Pain, Chest. Active Escitalopram Oxalate 5 MG Oral Tablet (Lexapro) Take 1 Tablet by mouth in the morning. 30 Tablet 5 07/24/20 24 Active Memantine HCl 10 MG Oral Tablet (Namenda) Take 1 tab by mouth twice per day 60 Tablet 5 07/24/20 24 Active Lidocaine 4 % External Patch (Aspercreme)Denice cations:Chronic bilateral low back pain without sciatica Place 1 patch on skin over affected area daily (leave on for 12 hours). 30 Patch 1 07/24/20 24 Active Omeprazole 20 MG Oral Capsule Delayed Release (PriLOSEC)Indica tions:Gastroesop hageal reflux disease, unspecified whether esophagitis present TAKE 1 CAPSULE BY MOUTH EVERY MORNING 90 Capsule 3 07/25/20 24 Active Methocarbamol 500 MG Oral Tablet (Robamol) Take 1 tab by mouth three times per day as needed for back pain 90 Tablet 1 07/26/20 24 Active Vitamin D 125 MCG (5000 UT) Oral Capsule Take 1 capsule daily 30 Capsule 11 07/26/20 24 Active Mirabegron ER 25 MG Oral Tablet Extended Release 24 Hour (Myrbetriq) Take 1 Tablet by mouth in the morning. 30 Tablet 11 07/27/20 24 Active Mirabegron ER 25 MG Oral Tablet Extended Release 24 Hour (Myrbetriq) Take 1 Tablet by mouth in the morning. 30 Tablet 11 07/26/20 24 024 Discontin ued(Refil l) documented as of this encounter (statuses as of 07/27/2024) Active Problems Problem Noted Date Diagnosed Date Primary adrenocortical insufficiency 07/24/2024 Myocarditis 11/12/2023 Orthostatic hypotension 10/21/2023 S/P IVC [...] (03/27/2019): basal cell carcinoma (L lower galaviz 03/02) ANDRZEJ (obstructive sleep apnea) 08/19/2018 Prostate cancer 06/29/2017 Moderate persistent asthma without complication 04/13/2017 Chronic anticoagulation 04/13/2017 Adrenal insufficiency 04/23/2015 Chronic steroid use 02/21/2015 HTN (hypertension) 10/16/2014 History of DVT in adulthood 08/20/2014 History of pulmonary embolism 04/16/2014 Deviated nasal septum 02/03/2006 ANGIOEDEMA 02/25/2005 documented as of this encounter (statuses as of 07/27/2024) Resolved Problems Problem Noted Date Diagnosed Date [...] as of this encounter (statuses as of 07/27/2024) Immunizations Name Administration Dates Next Due COVID-19 mRNA, LNP-s, No Pre serve, 2-Dose Series (Wevod) 05/30/2021,10/29/2020,10/08/2020 COVID-19, LNP-s, No Preserve , Prosper-sucrose, [...] AM EDT documented as of this encounter Functional Status * Are you [...] Elizabeth Marquez RN documented in this encounter Miscellaneous Notes * Telephone Encounter - Arnlod Willis MD - 07/27/2024 5:22 PM ESTSigned Prescriptions: Disp Refills Mirabegron ER 25 MG Oral Tablet Extended R*30 Tab*11 Sig: Take 1Tablet by mouth in the morning.Authorizing Provider: ARNOLD WILLIS * Telephone Encounter - Arnold Willis MD - 07/27/2024 5:21 PM EST This was sent yesterday. Will send again * Telephone Encounter - Leesa Salazar LPN - 07/27/2024 10:46 AM EST Did you pend patient's preferred pharmacy and medication before forwarding?yes Pharmacy: [facility] [id number] [place] Pending Prescriptions: Disp Refills Mirabegron ER 25 MG Oral Tablet Extended *30 Tab*11 Sig: Take 1 Tablet by mouth in the morning. Last Visit: 07/24/2024 (in office), Visit date not found (telemedicine) Next Visit: 08/28/2024 If no future appointments scheduled, and last appointment is greater than a year ago, please schedule patient for a follow-up appointment Last date the medication was ordered: 07/26/2024 Is this request for a controlled substance?No Urine Drug Screen:No results found. However, due to the size of the patient record, not all encounters were searched. Please check Results Review for a complete set of results. Patient Phone Numbers Labs: Lab Results Component Value Date/Time CREAT 1.2 07/24/2024 01:11 PM CREAT 1.54 (A) 06/10/2023 12:00 AM CREAT 1.7 (H) 09/01/2019 02:02 PM POTASSIUM 4.1 07/24/2024 01:11 PM POTASSIUM 3.8 06/10/2023 12:00 AM POTASSIUM 4.6 09/01/2019 02:02 PM TSH 2.11 04/03/2024 09:59 AM TSH 1.520 01/24/2020 12:00 AM TSH 2.06 09/01/2019 02:02 PM LDL 78 09/11/2023 05:10 AM ALT 10 07/24/2024 01:11 PM ALT 21 09/01/2019 02:02 PM HGBA1C 5.1 04/03/2024 09:59 AM documented in this encounter Plan of Treatment Upcoming Encounters Date Type Department Care Team (Late st Contact Info) Description 08/24/2024 8:45 AM EST Telemedicine Hematology/Oncology [facility] [address] [facility] [place] [phone] Xavi Gramajo MD [address] [facility] [place] [address] 08/28/2024 3:00 PM EST [facility] [address] [address] Arnold Willis MD [address] [place] [address] 09/04/2024 1:00 PM EST Procedure Only Urology, [address] [place] [address] Ernesto Villareal MD [address] [place] [facility] [place] [address] 09/14/2024 1:00 PM EST Cardiac Studies Cardiac Studies, [facility] [address] [facility] [place] [address] 10/13/2024 11:20 AM EST Office Visit Neurology [facility] [address] [place] [address] Ellie [facility] [address] [facility] [address] Health Maintenance Due Date Last Done Comments Albumin/Creatinine Ratio 1963 DTap/Tdap Vaccines (1 - Tdap) 1964 Adult Wellness Visit 02/01/2020 01/31/2019 COVID-19 Vaccine ( season) 2024 07/22/2022, 07/22/2022, 02/11/2022, Additional history exists CKD PHOS USE SMARTSET 68527 09/11/202408/17, 09/11/2023, 07/14/2021, Additional history exists Depression Screening 12/26/2024 12/27/2023 GFR 01/22/2025 07/24/2024, 03/17, 11/12/2023, Additional history exists CKD HGB USE SMARTSET 27216 07/24/202507/24, 07/24/2024, 04/12/2024, Additional history exists Pneumococcal Vaccine: 65+ Years [...] Power of Attor philipp? No Care Teams Medical Record Administrator Relationship Specialty Start Date End Date Arnold Willis MD [address] [place] [address] PCP - General Family Medicine 05/31/24 documented as of this encounter
--- OUTSIDE RECORDS SUMMARY | 2024-07-30 07:13 | External Medical Summary | Summary of Care ---
Author Name Unknown Organization [facility] Address [address] [facility] [place] [address] Phone [phone] Care Team Providers Care Incinerator Plant Laborer Name Role Phone Chuy Batista MD Primary Care Provider +1- [phone] Reason for Visit * Reason Onset Date Comments Test Results 07/27/2024 Encounter Details Date Type Department Care Team (Late st Contact Info) Description 07/27/2024 Telephone Hematology/Oncology [facility] [place] [address] [facility] [place] [phone] Xavi Gramajo MD [address] [place] [address] Test Results Allergies Active Allergy Reactions Criticality Noted Date Comments Chocolate Diarrhea 05/14/2023 Chocolate Flavoring Agent (Non-Screening) High 10/09/2023 Other Reaction(s): DIARRHEA/ Cannot take, interacts w/ medications. Clindamycin Hcl 09/24/2005 rash Cranberry 10/20/2023 Iodinated Contrast Media 10/01/2015 Ioversol Other (Please comment) High 08/10/[address] IV DYE Pembrolizumab High 10/10/2023 Other Reaction(s): myocarditis documented as of this encounter (statuses as of 07/28/2024) Medications Syringe/Needle, Disp, 25G X 1-1/2" 3 [...] Take 119 g by mouth once. Active [facility] Wound/Burn Dressing External GelIndications:P ressure injury of [...] MORNING WITH FOOD 120 Tablet 1 11/26/19 24 Active Additional Information Patient not taking.Reported [...] as of this encounter (statuses as of 07/28/2024) Active Problems Problem Noted Date Diagnosed Date [...] as of this encounter (statuses as of 07/28/2024) Resolved Problems Problem Noted Date Diagnosed Date [...] as of this encounter (statuses as of 07/28/2024) Immunizations Name Administration Dates Next Due COVID-19 mRNA, LNP-s, No Pre serve, 2-Dose Series (FunCaptcha) 05/30/2021,10/29/2020,10/08/2020 COVID-19, LNP-s, No Preserve , Prosper-sucrose, [...] of Assessment Author Yes 09/12/2023 12:39 AM EST Rich, Elizabeth A, RN documented as of this encounter Mental Status * Because of a physical, mental, or emotional condition, do you have serious difficulty concentrating, remembering, or making decisions? (5 years old or older) Answer Entry Date Author Yes 09/12/2023 12:39 AM EST Elizabeth Villanueva RN documented in this encounter Miscellaneous Notes * Telephone Encounter - Jenna Shannon RN - 07/28/2024 8:28 AM EST Called and reviewed with patients , she verbalized understanding. * Telephone Encounter - Toña Ceballos LPN - 07/27/2024 11:26 AM EST Attempted to contact patient, phone line ringing busy signal. Will re-attempt to contact patient indra later time. * Telephone Encounter - Toña Ceballos LPN - 07/27/2024 11:25 AM EST ----- Message from Xavi Gramajo MD sent at 07/27/2024 6:46 AM EST ----- Blood workup done on 07/24/2024: - BUN/Creat: 10/1.2, normal liver function test. - CK -> 37 - Ferritin level -> 893 - Serum iron 20, TIBC 156, saturation 18% - Troponin T -> 42. - WBC 8200, H&H of .6, platelet count of 358,000. Overall stable blood counts, improvement of the kidney function test, mild anemia. No evidence of iron deficiency. No need for IV iron. documented in this encounter Plan of Treatment Upcoming Encounters Date Type Department Care Team (Late st Contact Info) Description 08/24/2024 8:45 AM EST Telemedicine Hematology/Oncology [facility] [place] [address] [facility] [place] [phone] Xavi Gramajo MD [address] [facility] [place] [address] 08/28/2024 3:00 PM EST Office Visit Family [facility], [facility] [address] [facility] [phone] Chuy Batista MD [address] [place] [address] 09/04/2024 1:00 PM EST Procedure Only Urology, [place] [address] [place] [address] Ernesto Villareal MD [address] [place] [address] 09/14/2024 1:00 PM EST Cardiac Studies Cardiac Studies, [facility] [address] [place] [address] 10/13/2024 11:20 AM EST Office Visit Neurology [facility] [address] [facility] [place] [address] Ellie Duncan MD [address] [facility] [place], [place] [address] Health Maintenance Due Date Last Done Comments Albumin/Creatinine Ratio 1963 DTap/Tdap Vaccines (1 - Tdap) 1964 Adult Wellness Visit 02/01/2020 01/31/2019 COVID-19 Vaccine ( season) 2024 07/22/2022, 07/22/2022, 02/11/2022, Additional history exists CKD PHOS USE SMARTSET 38539 09/11/202408/17, 09/11/2023, 07/14/2021, Additional history exists Depression Screening 12/26/2024 12/27/2023 GFR 01/22/2025 07/24/2024, 03/17, 11/12/2023, Additional history exists CKD HGB USE SMARTSET 04944 07/24/202507/24, 07/24/2024, 04/12/2024, Additional history exists Pneumococcal [...] Power of Attor philipp? No Care Teams Incinerator Plant Laborer Relationship Specialty Start Date End Date Chuy Batista MD [address] [place] [address] PCP - General Family Medicine 05/31/24 documented as of this encounter
--- OUTSIDE RECORDS SUMMARY | 2024-07-30 07:14 | External Medical Summary | Summary of Care ---
Author Name Unknown Organization [facility] Address [address] [place] [address] Phone [phone] Care Team Providers Care Tufting Machine Operator Single Needle Name Role Phone Chuy Batista MD Primary Care Provider +1- [phone] Reason for Visit * Reason Onset Date Comments Advice 07/27/2024 Encounter Details Date Type Department Care Team (Late st Contact Info) Description 07/27/2024 [facility] [address] [place] [phone] Chuy Batista MD [address] [facility] [place] [address] Advice Allergies Active Allergy Reactions Criticality Noted [...] cations:Anaphylax is, sequela USE DIRECTED 1 Each 01/28/20 23 Active Additional Information Patient not taking.Reported on [...] Take 119 g by mouth once. Active [facility] W[facility]Burn Dressing External GelIndications:Pr essure injury of sacral region, stage 2 (HCC) Apply topically to affected area daily. Apply to pressure ulcer of buttocks. 88 mL 3 11/12/19 24 Active Additional Information Patient not taking.Reported on 07/24/2024 predniSONE 20 MG Oral Tablet (Deltasone)Indica tions:Urothelial [...] morning. 30 Tablet 11 03/07/20 24 Active Sulfamethoxazole- Trimethoprim 800-160 MG Oral Tablet [...] 24 Active Hydrocortisone 10 MG Oral Tablet (Cortef)Indicatio ns:Adrenal insufficiency (HCC) Take 20 mg in AM [...] 8.6 MG Oral Capsule Take by mouth. Activ e Tab-A-Kika Oral Tablet Take 1 Tablet by mouth in the morning. Active Vitamin B-12 1000 MCG/15ML Oral Liquid Take by mouth. Activ e Vitamin C ER 1000-100 MG Oral Tablet [...] 24 Active Lidocaine 4 % External Patch (Aspercreme)Indic ations:Chronic bilateral low back pain without sciatica Place 1 patch on skin over affected area daily (leave on for 12 hours). 30 Patch 1 07/24/20 24 Active Omeprazole 20 MG Oral Capsule Delayed Release (PriLOSEC)Indicat ions:Gastroesopha geal reflux disease, unspecified whether esophagitis present TAKE 1 CAPSULE BY MOUTH EVERY MORNING 90 Capsule 3 07/25/20 24 Active Methocarbamol 500 MG Oral Tablet (Robamol) Take 1 tab by mouth three times per day as needed for back pain 90 Tablet 1 07/26/20 24 Active Mirabegron ER 25 MG Oral Tablet Extended Release 24 Hour (Myrbetriq) Take 1 Tablet by mouth in the morning. 30 Tablet 11 07/26/20 24 Active Vitamin D 125 MCG (5000 UT) Oral Capsule Take 1 capsule daily 30 Capsule 11 07/26/20 24 Active documented as of this encounter (statuses [...] mRNA, LNP-s, No Pre serve, 2-Dose Series (Three [employer]) 05/30/2021,10/29/2020,10/08/2020 COVID-19, LNP-s, No Preserve , [...] Miscellaneous Notes * Telephone Encounter - Damari Stock LPN - 07/27/2024 1:22 PM EST Patients stopped in to the clinic today to speak to a nurse about her husbands medications. I spoke to spouse about her concerns about why patient was placed on Myrbetriq and Solifenacin. I explained after looking through encounters and medications that the Solifenacin was prescribed by Dr Aldrich the urologist and he should be taking this medication daily as prescribed. I did speak to Dr. Batista about the Myrbetriq as this was not prescribed by him or any provider and is listed as "History per Patient" and he states that patient has had issues with bladder leakage and it is ok for him to continue this medication. Spouse brought up concern about blood in patients catheter this morning as well and wondered if Myrbetriq was causing this. Dr. Batista states that he should have a follow up visit soon with Urology to discuss this but no concerns for medication being cause as this just started today and patient has been on this medication. I called and spoke to spouse about this i nformation from Dr. Batista and she states she is going to call urology to discuss catheter issues and get recommendations from them and have patient seen sooner with Dr. Aldrich in urology for a follow up. She had no further questions. Thank you. documented in this encounter Plan of Treatment Upcoming Encounters Date Type Department Care Team (Late st Contact Info) Description 08/24/2024 8:45 AM EST Telemedicine Hematology/Oncology [facility] [place] [address] [place] [phone] Xavi Gramajo MD 200 [facility] [place] [address] 08/28/2024 3:00 PM EST Office Visit Family Practice, [facility] [place] [address] [facility] [place] [address] Chuy Batista MD [address] [facility] [place] [address] 09/04/2024 1:00 PM EST Procedure Only Urology, [place] [address] [place] [address] Ernesto Villareal MD [address] [place] [address] 09/14/2024 1:00 PM EST Cardiac Studies Cardiac Studies, [facility] [address] [place] [address] 10/13/2024 11:20 AM EST Office Visit Neurology [facility] [address] [facility] [place] [address] Ellie Duncan MD [address] [facility] [place] [address] Health Maintenance Due Date Last Done Comments Albumin/Creatinine Ratio 1963 DTap/Tdap Vaccines (1 - Tdap) 1964 Adult Wellness Visit 02/01/2020 01/31/2019 COVID-19 Vaccine ( season) 2024 07/22/2022, 07/22/2022, 02/11/2022, Additional history exists CKD PHOS USE SMARTSET 61586 09/11/202408/17, 09/11/2023, 07/14/2021, Additional history exists Depression Screening 12/26/2024 12/27/2023 GFR 01/22/2025 07/24/2024, 03/17, 11/12/2023, Additional history exists CKD HGB USE SMARTSET 95906 07/24/202507/24, 07/24/2024, 04/12/2024, Additional history exists Pneumococcal [...] Power of Attor philipp? No Care Teams Tufting Machine Operator Single Needle Relationship Specialty Start Date End Date Chuy Batista MD [address] [place] [address] PCP - General Family Medicine 05/31/24 documented as of this encounter
--- OUTSIDE RECORDS SUMMARY | 2024-07-30 07:14 | External Medical Summary | Summary of Care ---
Author Name Unknown Organization [facility] Address [address] [place] [address] Phone [phone] Care Team Providers Care Cash Management Associate Name Role Phone Arnold Willis MD Primary Care Provider +1- [phone] Reason for Visit * Reason Onset Date Comments Test Results 07/25/2024 Encounter Details Date Type Department Care Team (Late st Contact Info) Description 07/25/2024 Telephone [facility] Amanda Singh [address] [place] [address] Arnold Willis MD [address] [facility] [place] [address] Test Results Allergies Active Allergy Reactions Criticality [...] axis, sequela USE DIRECTED 1 Each 01/28/20 23 [...] Take 119 g by mouth once. Active [facility] Wound/Burn Dressing External GelIndications:P ressure [...] daily 30 Capsule 11 07/26/20 24 Active Vitamin D 125 MCG (5000 UT) Oral Capsule Take by mouth. 024 Discontin ued(Refil l) documented as of [...] mRNA, LNP-s, No Pre serve, 2-Dose Series ([employer]) 05/30/2021,10/29/2020,10/08/2020 COVID-19, LNP-s, No Preserve , Prosper-sucrose, [...] Assessment Author No 09/12/2023 12:39 AM Elizabeth Marquze RN * Because of a physical, mental, or emotional condition, do you have difficulty doing errands alone such as visiting a doctors office or shopping? (15 years old or older) Answer Date of Assessment Author Yes 09/12/2023 12:39 AM EST Elizabeth Villanueva RN documented as of this encounter Mental Status * Because of a physical, mental, or emotional condition, do you have serious difficulty concentrating, remembering, or making decisions? (5 years old or older) Answer Entry Date Author Yes 09/12/2023 12:39 AM EST Elizabeth Villanueva RN documented in this encounter Miscellaneous Notes * Telephone Encounter - Ana Garcia LPN - 07/26/2024 2:41 PM EST Patient's EC Ivet aware and verbalized understanding. Reports that the pt does not absorb oral iron well and this is why he had to have iron infusions inthe past. States that she spoke with oncology and was told that iron infusions are something PCP will have to facilitate. Pt's appetite is poor and is weak which is an indicator that pt is anemic. Does not want this to worsen. Please advise iron infusion request. * Addendum Note - Arnold Willis MD - 07/26/2024 1:57 PM ESTAddended by: ARNOLD WILLIS on: 07/26/2024 01:57 PM Modules accepted: Orders * Telephone Encounter - Arnold Willis MD - 07/26/2024 1:53 PM EST Please notify that the requested meds have been sent to [facility]'s. Can let them know that I will make sure that Dr Gramajo is aware of the recent test results. If he feels that patient should have iron infusions, we will let them know. For now, continue oral supplementation. * Telephone Encounter - Nancy Finn education professor - 07/26/2024 1:37 PM EST Pharmacy calling requesting the following medication below that is listed as "Historical". The following information was provided: Medication Name: methocarbamol Strength: 500mg Directions: 1 tid prn for back pain Preferred Quantity: 90 Previous Prescriber: Dr. Mitchel Norton [facility]-[address] [place] Medication Name: myrbetric Strength: 25mg tablet Directions: 1 a day Preferred Quantity: 30 Previous Prescriber: Dr. Mitchel Norton [facility]erred Pharmacy: [facility] #[address] [place] [address].- [place] Medication Name: vitamin d3 Strength: 125 mcg cap Directions: 1 a day Preferred Quantity: 30 Previous Prescriber: Dr. Mitchel Norton Preferred Pharmacy: [facility] [address] [place] [address].[facility] Please review and approve if appropriate. Thank you, Nancy Finn [facility] Top Cutter II [facility] Services ([facility]PS) 07/26/2024, 1:37 PM * Telephone Encounter - Erick Osborn OSA - 07/26/2024 10:03 AM EST Called the pharmacy to clarify the medications. Pharmacy had wrong fax number. Gave them [phone]. Stated they will refax med refill request * Telephone Encounter - Damari Stock LPN - 07/26/2024 9:08 AM EST Patient is taking iron supplements everyday for months and he has been more tired recently and has had less appetite. Patients spouse states he has received iron infusions at [facility] in the past. She would like to know if this is something he can get to get his strength back and appetite back? She is also asking if this is something he can have done at home or he would need to go to [facility] for? 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 I have placed a note on nurses desk tolook for this fax, but she was very persistent that he was going to run out if we didn't get this taken care of. Please advise. Thank you. * Telephone Encounter - Arnold Willis MD - 07/25/2024 9:09 PM EST Please call to notify of lab results. Kidney function, liver function, glucose, electrolytes are all normal. He does have a mild anemia with hgb 11.1. Iron level a little low. Suggest continue current meds including iron supplementation and will recheck levels at next visit. documented in this encounter Plan of Treatment Upcoming Encounters Date Type Department Care Team (Late st Contact Info) Description 08/24/2024 8:45 AM EST Telemedicine Hematology/Oncology [facility] [address] [facility] [place] [address] Xavi Gramajo MD [address] [facility] [place] [address] 08/28/2024 3:00 PM EST Office Visit [facility] [address] [place] [address] Arnold Willis MD [address] [place] [address] 09/04/2024 1:00 PM EST Procedure Only [facility] [place] [address] [facility] [address] Ernesto Villareal MD [address] [place] [facility] [place] [address] 09/14/2024 1:00 PM EST Cardiac Studies Cardiac Studies, [facility] [address] [facility] [place] [address] 10/13/2024 11:20 AM EST Office Visit Neurology Steph Bacon [place] [address] [facility] [place] [address] Ellie Duncan MD [address] [facility] [place] [address] Health Maintenance Due Date Last Done Comments Albumin/Creatinine Ratio 1963 DTap/Tdap Vaccines (1 - Tdap) 1964 Adult Wellness Visit 02/01/2020 01/31/2019 COVID-19 Vaccine ( season) 2024 07/22/2022, 07/22/2022, 02/11/2022, Additional history exists CKD PHOS USE SMARTSET 95536 09/11/202408/17, 09/11/2023, 07/14/2021, Additional history exists Depression Screening 12/26/2024 12/27/2023 GFR 01/22/2025 07/24/2024, 03/17, 11/12/2023, Additional history exists CKD HGB USE SMARTSET 65736 07/24/202507/24, 07/24/2024, 04/12/2024, Additional history exists Pneumococcal [...] of Attor philipp? No Care Teams Cash Management Associate Relationship Specialty Start Date End Date Arnold Willis MD [address] [facility] [place] [address] PCP - General Family Medicine 05/31/24 documented as of this encounter
--- OUTSIDE RECORDS SUMMARY | 2024-07-30 07:14 | External Medical Summary | Summary of Care ---
Author Name Unknown Organization [facility] Address [address] [facility] [place] [address] Phone [phone] Care Team Providers Care Exerciser Horse Name Role Phone Chuy Batista MD Primary Care Provider +1- [phone] Reason for Visit * Reason Onset Date Comments No Show 07/25/2024 Encounter Details Date Type Department Care Team (Late st Contact Info) Description 07/25/2024 Telephone Hematology/Oncology [facility] Arleen [place] [address] [facility] [place] [phone] Xavi Gramajo MD [address] [place] [address] No Show Allergies Active Allergy Reactions Criticality Noted Date Comments Chocolate Diarrhea 05/14/2023 Chocolate Flavoring Agent (Non-Screening) High 10/09/2023 Other Reaction(s): DIARRHEA/ Cannot take, interacts w/ medications. Clindamycin Hcl 09/24/2005 rash Cranberry 10/20/2023 Iodinated Contrast Media 10/01/2015 Ioversol Other (Please comment) High 08/10/[address] IV DYE Pembrolizumab High 10/10/2023 Other Reaction(s): myocarditis documented as of this encounter (statuses as of 07/26/2024) Medications Syringe/Needle, Disp, 25G X 1-1/2" 3 [...] ications:Anaphyl axis, sequela USE DIRECTED 1 Each 023 Active Additional Information Patient not taking.Reported on [...] Take 119 g by mouth once. Active [facility] Wound/Burn Dressing External GelIndications:P ressure injury of sacral region, stage 2 (HCC) Apply topically to affected area daily. Apply to pressure ulcer of buttocks. 88 mL 3 024 Active Additional Information Patient not taking.Reported [...] in the morning. 30 Tablet 6 Active Fludrocortisone Acetate 0.1 MG Oral Tablet (Florinef) Take 1 Tablet by mouth in the morning. 30 Tablet 11 024 Active Sulfamethoxazole -Trimethoprim 800-160 MG Oral Tablet [...] morning and 64 mg before bedtime. Active Hydrocortisone 10 MG Oral Tablet (Cortef)Indicati ons:Adrenal insufficiency (HCC) Take 20 mg in AM and 10 mg in afternoon 90 Tablet 5 Active ARIPiprazole 2.5 MG OR TABS Take [...] mouth in the morning. 30 Tablet 5 Active Memantine HCl 10 MG Oral Tablet (Namenda) Take 1 tab by mouth twice per day 60 Tablet 5 Active Lidocaine 4 % External Patch (Aspercreme)Denice cations:Chronic bilateral low back pain without sciatica Place 1 patch on skin over affected area daily (leave on for 12 hours). 30 Patch 1 Active Vitamin D 125 MCG (5000 UT) Oral Capsule Take by mouth. 2023 Discontinued(R efill) Omeprazole 20 MG Oral Capsule Delayed Release (PriLOSEC)Indica tions:Gastroesop hageal reflux disease, unspecified whether esophagitis present Take 1 Capsule by mouth in the morning. 90 Capsule 1 024 2023 Discontinued documented as of this encounter (statuses as of 07/26/2024) Active Problems Problem Noted Date Diagnosed Date [...] as of this encounter (statuses as of 07/26/2024) Resolved Problems Problem Noted Date Diagnosed Date [...] as of this encounter (statuses as of 07/26/2024) Immunizations Name Administration Dates Next Due COVID-19 mRNA, LNP-s, No Pre serve, 2-Dose Series ([employer]) 05/30/2021,10/29/2020,10/08/2020 COVID-19, LNP-s, No Preserve , Prosper-sucrose, [...] encounter Miscellaneous Notes * Telephone Encounter - Danuta Schneider OSA - 07/26/2024 2:32 PM EST Changed called pt stated that he is aware but is unsure of the email to use And he will have his call in but if not to call back in a day or so * Telephone Encounter - Des Mathew RN - 07/26/2024 2:01 PM EST Scheduling- please call patient back to reschedule apt with Dr. Gramajo via video. * Telephone Encounter - aXvi Gramajo MD - 07/26/2024 1:54 PM EST Okay to do the video visit. * Telephone Encounter - Des Mathew RN - 07/26/2024 11:[address] Gramajo - are you ok with doing video visit as patient has a hard time ambulating at this time. Dr. Batista reviewed lab results yesterday, pt only slightly anemic at 11.1 - will be instructedto continue oral iron therapy as iron was a little low too. * Telephone Encounter - Danuta Schneider OSA - 07/26/2024 10:26 AM EST Called pt to resched. Pts answered. She stated that they were unable to come yesterday as it is hard to get pt out of the house as he just got out of a [facility]. She is worried due to his blood work that another Dr ordered she stated " it is anemic" and she doesn't want to wait to see what to do. She was wondering if there was a way to see what to do about the " anemic labs" prior to the new apt And also wanted to know if they were able to do a video apt as its hard to get him out of the house * Telephone Encounter - Chuy Batista MD - 07/25/2024 9:12 PM EST I had communicated with Dr Gramajo through [employer] that pt would not be able to make appt. I thought my office staff was going to cancel the appt - sorry that did not happen. * Telephone Encounter - Edie Harris CMA - 07/25/2024 3:40 PM EST Please contact patient in regards to NO SHOW Appointment today with . Thank you. documented in this encounter Plan of Treatment Upcoming Encounters Date Type Department Care Team (Late st Contact Info) Description 08/24/2024 8:45 AM EST Telemedicine Hematology/Oncology [facility] [place] [address] [facility] [place] [phone] Xavi Gramajo MD [address] [facility] [place] [address] 08/28/2024 3:00 PM EST Office Visit [facility] [address] [facility] [place] [phone] Chuy Batista MD 226 [facility] [place] [address] 09/04/2024 1:00 PM EST Procedure Only Urology, [place] [address] [facility] [place] [address] Ernesto Villareal MD [address] [facility] [address] 09/14/2024 1:00 PM EST Cardiac Studies Cardiac Studies, [facility] 132 Alissa Singh [facility] [place] [address] 10/13/2024 11:20 AM EST Office Visit Neurology [facility] [address] [facility] [place] [address] Ellie Duncan MD [address] [facility] [place] [address] Health Maintenance Due Date Last Done Comments Albumin/Creatinine Ratio 1963 DTap/Tdap Vaccines (1 - Tdap) 1964 Adult Wellness Visit 02/01/2020 01/31/2019 COVID-19 Vaccine ( season) 2024 07/22/2022, 07/22/2022, 02/11/2022, Additional history exists CKD PHOS USE SMARTSET 90513 09/11/202408/17, 09/11/2023, 07/14/2021, Additional history exists Depression Screening 12/26/2024 12/27/2023 GFR 01/22/2025 07/24/2024, 03/17, 11/12/2023, Additional history exists CKD HGB USE SMARTSET 39276 07/24/202507/24, 07/24/2024, 04/12/2024, Additional history exists Pneumococcal [...] Power of Attor philipp? No Care Teams Exerciser Horse Relationship Specialty Start Date End Date Chuy Batista MD [address] [place] [address] PCP - General Family Medicine 05/31/24 documented as of this encounter
--- OUTSIDE RECORDS SUMMARY | 2024-07-30 07:14 | External Medical Summary | Summary of Care ---
Author Name Unknown Organization [facility] Address [address] [facility] [place] [address] Phone [phone] Care Team Providers Care Sanitarian Inspector Name Role Phone Chuy Batista MD Primary Care Provider +1- [phone] Reason for Visit * Reason Onset Date Comments No Show 07/25/2024 Encounter Details Date Type Department Care Team (Late st Contact Info) Description 07/25/2024 Telephone Hematology/Oncology [facility] [place] [address] [facility] [place] [phone] Xavi Gramajo MD [address] [place] [address] No Show Allergies Active Allergy Reactions Criticality [...] Take 119 g by mouth once. Active [facility] Wound/Burn Dressing External GelIndications:P ressure injury [...] on for 12 hours). 30 Patch 1 024 Active Vitamin D 125 MCG (5000 UT) [...] mRNA, LNP-s, No Pre serve, 2-Dose Series ([employer]) 05/30/2021,10/29/2020,10/08/2020 COVID-19, LNP-s, No Preserve , Prosper-sucrose, [...] Telephone Encounter - Danuta Schneider OSA - 07/27/2024 9:00 AM EST Pt stated that they will call in with one they have to talk to the daughter as they have had issueswith their computer and do not have an email now * Telephone Encounter - Danuta Schneider OSA [...] Gramajo via video. * Telephone Encounter - Xavi Gramajo MD - 07/26/2024 1:54 PM EST [...] as he just got out of a fci. She is worried due to his blood [...] I had communicated with Dr Gramajo through [employer] Text that pt would not be able [...] Arnol I[place] [address] [place] [address] Xavi Gramajo MD 200 [facility] [place] [address] 08/28/2024 3:00 PM EST [facility] [address] [place] [phone] Chuy Batista MD 226 [facility] [place] [address] 09/04/2024 1:00 PM EST Procedure Only Urology, [place] [address] [place] [address] Ernesto Villareal MD [address] [place] [address] 09/14/2024 1:00 PM EST Cardiac Studies Cardiac Studies, [facility] [address] [facility] [place] [address] 10/13/2024 11:20 AM EST Office Visit Neurology [facility] [address] [place] [address] Ellie Duncan MD 200 [facility] [place] [address] Health Maintenance Due Date Last Done Comments Albumin/Creatinine Ratio 1963 DTap/Tdap Vaccines (1 - Tdap) 1964 Adult Wellness Visit 02/01/2020 01/31/2019 COVID-19 Vaccine ( season) 2024 07/22/2022, 07/22/2022, 02/11/2022, Additional history exists CKD PHOS USE SMARTSET 73020 09/11/202408/17, 09/11/2023, 07/14/2021, Additional history exists Depression Screening 12/26/2024 12/27/2023 GFR 01/22/2025 07/24/2024, 03/17, 11/12/2023, Additional history exists CKD HGB USE SMARTSET 97131 07/24/202507/24, 07/24/2024, 04/12/2024, Additional history exists Pneumococcal [...] Power of Attor philipp? No Care Teams Sanitarian Inspector Relationship Specialty Start Date End Date Chuy Batista MD [address] [place] [address] PCP - General Family Medicine 05/31/24 documented as of this encounter
--- OUTSIDE RECORDS SUMMARY | 2024-07-30 07:14 | External Medical Summary | Summary of Care ---
Author Name Unknown Organization [facility] Address [address] [place] [address] Phone [phone] Care Team Providers Care Public Information Coordinator Name Role Phone Arnold Willis MD Primary Care Provider +1- [phone] Reason for Visit * Reason Onset Date Comments Test Results 07/25/2024 Encounter Details Date Type Department Care Team (Late st Contact Info) Description 07/25/2024 Telephone [facility] Amanda Singh [address] [place] [phone] Arnold Willis MD [address] [facility] [place] [address] Test Results Allergies Active Allergy Reactions Criticality [...] mRNA, LNP-s, No Pre serve, 2-Dose Series ([employer]) 05/30/2021,10/29/2020,10/08/2020 COVID-19, LNP-s, No Preserve , Prosper-sucrose, [...] the requested meds have been sent to [facility]'s. Can let them know that I will make sure that Dr Gramajo is aware of the recent test results. If he feels that patient should have iron infusions, we will let them know. For now, continue oral supplementation. * Telephone Encounter - Nancy Finn enchilada maker - 07/26/2024 1:37 PM EST Pharmacy calling requesting the following medication below that is listed as "Historical". The following information was provided: Medication Name: methocarbamol Strength: 500mg Directions: 1 tid prn for back pain Preferred Quantity: 90 Previous Prescriber: Dr. Mitchel Norton Preferred Pharmacy: [facility] #[facility]-[address] [place] Medication Name: myrbetric Strength: 25mg tablet Directions: 1 a day Preferred Quantity: 30 Previous Prescriber: Dr. Mitchel Norton Preferred Pharmacy: [facility] #[address] [place] [address].- [place] Medication Name: vitamin d3 Strength: 125 mcg cap Directions: 1 a day Preferred Quantity: 30 Previous Prescriber: Dr. Mitchel Norton Preferred Pharmacy: [facility] #[address] [place] [address].[facility] Please review and approve if appropriate. Thank you, Nancy Finn [facility] Sandblaster Apprentice II Central[facility] Clinical Pharmacy Services ([facility]PS) 07/26/2024, 1:37 PM * Telephone Encounter - Erick Osborn OSA - 07/26/2024 10:03 AM EST Called the pharmacy to clarify the medications. Pharmacy had wrong fax number. Gave them [phone]. Stated they will refax med refill request * Telephone Encounter - Damari Stock LPN - 07/26/2024 9:08 AM EST Patient is taking iron supplements everyday for months and he has been more tired recently and has had less appetite. Patients spouse states he has received iron infusions at [facility] in the past. She would like to know if this is something he can get to get his strength back and appetite back? She is also asking if this is something he can have done at home or he would need to go to [facility] for? 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 and they did not have medications [...] Description 08/24/2024 8:45 AM EST Telemedicine Hematology/Oncology [facility] [address] [facility] [address] Xavi Gramajo MD [address] [facility] [place] [address] 08/28/2024 3:00 PM EST Office Visit [facility] [address] [place] [phone] Arnold Willis MD [address] [place] [address] 09/04/2024 1:00 PM EST Procedure Only [facility]rology, [place] [address] [facility] [address] Ernesto Villareal MD [address] [place] [facility] [place] [address] 09/14/2024 1:00 PM EST Cardiac Studies Cardiac Studies, [facility] 132 [facility] [place] [address] 10/13/2024 11:20 AM EST Office Visit Neurology Steph Bacon [place] [address] [facility] [place] [address] Ellie Duncan MD [address] [facility] [place] [address] Health Maintenance Due Date Last Done Comments Albumin/Creatinine Ratio 1963 DTap/Tdap Vaccines (1 - Tdap) 1964 Adult Wellness Visit 02/01/2020 01/31/2019 COVID-19 Vaccine ( season) 2024 07/22/2022, 07/22/2022, 02/11/2022, Additional history exists CKD PHOS USE SMARTSET 78581 09/11/202408/17, 09/11/2023, 07/14/2021, Additional history exists Depression Screening 12/26/2024 12/27/2023 GFR 01/22/2025 07/24/2024, 03/17, 11/12/2023, Additional history exists CKD HGB USE SMARTSET 26894 07/24/202507/24, 07/24/2024, 04/12/2024, Additional history exists Pneumococcal [...] Power of Attor philipp? No Care Teams Public Information Coordinator Relationship Specialty Start Date End Date Arnold Willis MD [address] [facility] [place] [address] PCP - General Family Medicine 05/31/24 documented as of this encounter
--- OUTSIDE RECORDS SUMMARY | 2024-07-30 07:14 | External Medical Summary | Summary of Care ---
Author Name Unknown Organization [facility] Address [address] [facility] [place] [address] Phone [phone] Care Team Providers Care First Press Operator Name Role Phone Chuy Batista MD Primary Care Provider +1- [phone] Reason for Visit * Reason Onset Date Comments Test Results 07/27/2024 Encounter Details Date Type Department Care Team (Late st Contact Info) Description 07/27/2024 Telephone Hematology/Oncology [facility] Arleen [place] 200 [facility] [place] [id number] Xavi Gramajo MD [address] [place] [address] Test Results Allergies Active Allergy Reactions Criticality [...] is, sequela USE DIRECTED 1 Each 01/28/20 Active [...] Take 119 g by mouth once. Active [facility] D[facility] External GelIndications:Pr essure injury [...] mRNA, LNP-s, No Pre serve, 2-Dose Series ([employer]) 05/30/2021,10/29/2020,10/08/2020 COVID-19, LNP-s, No Preserve , Prosper-sucrose, [...] -> 42. - WBC 8200, H&H of /37.6, platelet count of 358,000. Overall stable blood counts, improvement of the kidney function test, mild anemia. No evidence of iron deficiency. No need for IV iron. documented in this encounter Plan of Treatment Upcoming Encounters Date Type Department Care Team (Late st Contact Info) Description 08/24/2024 8:45 AM EST Telemedicine Hematology/Oncology [facility] Arleen [place] 200 [facility] [place] [address] Xavi Gramajo MD 200 [facility] [place] [address] 08/28/2024 3:00 PM EST Office Visit [facility] [address] [place] [address] Chuy Batista MD 226 [facility] [place] [address] 09/04/2024 1:00 PM EST Procedure Only Urology, [place] [address] [place] [address] Erensto Villareal MD [address] [place] [address] 09/14/2024 1:00 PM EST Cardiac Studies Cardiac Studies, [facility] [address] [place] [address] 10/13/2024 11:20 AM EST Office Visit Neurology [facility] 200 [place] [address] Ellie Duncan MD 200 [facility] [address] Health Maintenance Due Date Last Done Comments Albumin/Creatinine Ratio 1963 DTap/Tdap Vaccines (1 - Tdap) 1964 Adult Wellness Visit 02/01/2020 01/31/2019 COVID-19 Vaccine ( season) 2024 07/22/2022, 07/22/2022, 02/11/2022, Additional history exists CKD PHOS USE SMARTSET 46159 09/11/202408/17, 09/11/2023, 07/14/2021, Additional history exists Depression Screening 12/26/2024 12/27/2023 GFR 01/22/2025 07/24/2024, 03/17, 11/12/2023, Additional history exists CKD HGB USE SMARTSET 66533 07/24/202507/24, 07/24/2024, 04/12/2024, Additional history exists Pneumococcal [...] of Attor philipp? No Care Teams First Press Operator Relationship Specialty Start Date End Date Chuy Batista MD [address] [place] [address] PCP - General Family Medicine 05/31/24 documented as of this encounter
--- OUTSIDE RECORDS SUMMARY | 2024-07-30 07:14 | External Medical Summary | Summary of Care ---
Author Name Unknown Organization [facility] Address [address] [place] [address] Phone [phone] Care Team Providers Care Organic Chemist Name Role Phone Chuy Batista MD Primary Care Provider +1- [phone] Reason for Visit * Reason Onset Date Comments Advice 07/26/2024 Infusion Encounter Details Date Type Department Care Team (Late st Contact Info) Description 07/26/2024 Telephone [facility]manad Singh [address] [facility] [address] Chuy Batista MD 226 [facility] [place] [address] Advice (Infusion ) Allergies Active Allergy Reactions Criticality Noted [...] mouth once. Active [facility] Wound/Burn Dressing External GelIndications:Pr essure [...] Encounter - Ana Garcia LPN - 07/26/2024 2:40 PM EST See TE from yesterday. * Telephone Encounter - Verna Garay OSA - 07/26/2024 2:35 PM EST Reason for patient's call: infusion Caller was transferred to [facility] at the nurse line. documented in this encounter Plan of Treatment Upcoming Encounters Date Type Department Care Team (Late st Contact Info) Description 08/24/2024 8:45 AM EST Telemedicine Hematology/Oncology [facility] 200 [facility] [place] [address] Xavi Gramajo MD 200 [place] [address] 08/28/2024 3:00 PM EST Office Visit [facility] 226 [facility] [place] [phone] Chuy Batista MD 226 [facility] [place] [address] 09/04/2024 1:00 PM EST Procedure Only Urology, [place] [address] [place] [address] Ernesto Villareal MD [address] [place] [address] 09/14/2024 1:00 PM EST Cardiac Studies Cardiac Studies, [facility] [address] [place] [address] 10/13/2024 11:20 AM EST Office Visit Neurology [facility] 200 [facility] [place] [address] Ellie Duncan MD 200 [facility] [place] [address] Health Maintenance Due Date Last Done Comments Albumin/Creatinine Ratio 1963 DTap/Tdap Vaccines (1 - Tdap) 1964 Adult Wellness Visit 02/01/2020 01/31/2019 COVID-19 Vaccine ( season) 2024 07/22/2022, 07/22/2022, 02/11/2022, Additional history exists CKD PHOS USE SMARTSET 79996 09/11/202408/17, 09/11/2023, 07/14/2021, Additional history exists Depression Screening 12/26/2024 12/27/2023 GFR 01/22/2025 07/24/2024, 03/17, 11/12/2023, Additional history exists CKD HGB USE SMARTSET 12003 07/24/202507/24, 07/24/2024, 04/12/2024, Additional history exists Pneumococcal [...] Power of Attor philipp? No Care Teams Organic Chemist Relationship Specialty Start Date End Date Chuy Batista MD [address] [place] [address] PCP - General Family Medicine 05/31/24 documented as of this encounter
--- OUTSIDE RECORDS SUMMARY | 2024-07-30 07:14 | External Medical Summary | Summary of Care ---
Author Name Unknown Organization [facility] Address [address] [place] [address] Phone [phone] Care Team Providers Care Home Decorator Name Role Phone Arnold Willis MD Primary Care Provider +1- [phone] Reason for Visit * Reason Onset Date Comments Test Results 07/25/2024 Encounter Details Date Type Department Care Team (Late st Contact Info) Description 07/25/[address] [facility] Amanda Singh [address] [place] [address] Arnold Willis MD 226 [facility] [place] [address] Test Results Allergies Active Allergy Reactions Criticality [...] mRNA, LNP-s, No Pre serve, 2-Dose Series ([employer]) 05/30/2021,10/29/2020,10/08/2020 COVID-19, LNP-s, No Preserve , Prosper-sucrose, [...] the requested meds have been sent to [facility]. Can let them know that I will make sure that Dr Gramajo is aware of the recent test results. If he feels that patient should have iron infusions, we will let them know. For now, continue oral supplementation. * Telephone Encounter - Nancy Finn tortilla maker - 07/26/2024 1:37 PM EST Pharmacy calling requesting the following medication below that is listed as "Historical". The following information was provided: Medication Name: methocarbamol Strength: 500mg Directions: 1 tid prn for back pain Preferred Quantity: 90 Previous Prescriber: Dr. Mitchel Norton Preferred Pharmacy: [facility] #[facility]-[address] [place] Medication Name: myrbetric Strength: 25mg tablet Directions: 1 a day Preferred Quantity: 30 Previous Prescriber: Dr. Mitchel Norton Preferred Pharmacy: [facility] #[address] [place] [address].- [place] Medication Name: vitamin d3 Strength: 125 mcg cap Directions: 1 a day Preferred Quantity: 30 Previous Prescriber: Dr. Mitchel Norton Preferred Pharmacy: [facility] [address] [place] [address].[facility] Please review and approve if appropriate. Thank you, Nancy Finn [facility] Middleware Architect II Centralized Clinical Pharmacy Services (CCPS) 07/26/2024, 1:37 PM * Telephone Encounter - Erick Osborn OSA - 07/26/2024 10:03 AM EST Called the pharmacy to clarify the medications. Pharmacy had wrong fax number. Gave them [phone]. Stated they will refax med refill request * Telephone Encounter - Damari Stock LPN - 07/26/2024 9:08 AM EST Patient is taking iron supplements everyday for months and he has been more tired recently and has had less appetite. Patients spouse states he has received iron infusions at [facility] in the past. She would like to know if this is something he can get to get his strength back and appetite back? She is also asking if this is something he can have done at home or he would need to go to [facility] for? Spousestates [email or web address] and they did not have medications [...] Description 08/24/2024 8:45 AM EST Telemedicine Hematology/Oncology [facility] 200 [place] [address] Xavi Gramajo MD 200 [facility] [place] [address] 08/28/2024 3:00 PM EST Office Visit [facility] [address] [place] [address] Arnold Willis MD [address] [place] [address] 09/04/2024 1:00 PM EST Procedure Only Urology, [place] [address] [facility] [address] Ernesto Villareal MD [address] [place] [address] 09/14/2024 1:00 PM EST Cardiac Studies Cardiac Studies, [facility] 132 [facility] [place] [address] 10/13/2024 11:20 AM EST Office Visit Neurology Steph [facility] [place] 200 [facility] [place] [address] Ellie Duncan MD 200 [facility] [place] [address] Health Maintenance Due Date Last Done Comments Albumin/Creatinine Ratio 1963 DTap/Tdap Vaccines (1 - Tdap) 1964 Adult Wellness Visit 02/01/2020 01/31/2019 COVID-19 Vaccine ( season) 2024 07/22/2022, 07/22/2022, 02/11/2022, Additional history exists CKD PHOS USE SMARTSET 76236 09/11/202408/17, 09/11/2023, 07/14/2021, Additional history exists Depression Screening 12/26/2024 12/27/2023 GFR 01/22/2025 07/24/2024, 03/17, 11/12/2023, Additional history exists CKD HGB USE SMARTSET 11614 07/24/202507/24, 07/24/2024, 04/12/2024, Additional history exists Pneumococcal [...] Power of Attor philipp? No Care Teams Home Decorator Relationship Specialty Start Date End Date Arnold Willis MD [address] [facility] [place] [address] PCP - General Family Medicine 05/31/24 documented as of this encounter
--- OUTSIDE RECORDS SUMMARY | 2024-07-30 07:15 | External Medical Summary | Summary of Care ---
Author Name Unknown Organization [facility] Address [address] [place] [address] Phone [phone] Care Team Providers Care Animal Cop Name Role Phone Chuy Batista MD Primary Care Provider +1- [phone] Reason for Visit * Reason Onset Date Comments Test Results 07/25/2024 Encounter Details Date Type Department Care Team (Late st Contact Info) Description 07/25/2024 Telephone [facility] Amanda Singh [address] [place] [address] Chuy Batista MD 226 [facility] [place] [address] Test Results Allergies Active Allergy Reactions Criticality [...] Oral Tablet Chewable Take by mouth. Active Vitamin D 125 MCG (5000 UT) Oral Capsule Take by mouth. Activ e Iron 325 (65 Fe) MG Oral Tablet [...] MORNING 90 Capsule 3 07/25/20 24 Active documented as of this encounter [...] mRNA, LNP-s, No Pre serve, 2-Dose Series ([employer]) 05/30/2021,10/29/2020,10/08/2020 COVID-19, LNP-s, No Preserve , Prosper-sucrose, [...] encounter Miscellaneous Notes * Telephone Encounter - AakashNancy connors PHARM Tech - 07/26/2024 1:37 PM EST Pharmacy calling requesting the following medication below that is listed as "Historical". The following information was provided: Medication Name: methocarbamol Strength: 500mg Directions: 1 tid prn for back pain Preferred Quantity: 90 Previous Prescriber: Dr. Mitchel Norton Preferred Pharmacy: [facility] [address] [place] Medication Name: myrbetric Strength: 25mg tablet Directions: 1 a day Preferred Quantity: 30 Previous Prescriber: Dr. Mitchel Norton Preferred Pharmacy: [facility] #[address] [place] [address] [place] Medication Name: vitamin d3 Strength: 125 mcg cap Directions: 1 a day Preferred Quantity: 30 Previous Prescriber: Dr. Mitchel Norton Preferred Pharmacy: [facility] #[address] [place] [address] [address] [place] Please review and approve if appropriate. Thank you, Nancy Finn [facility] Eyelet Punch Operator II Centralized Clinical Pharmacy Services (CCPS) 07/26/2024, 1:37 PM * Telephone Encounter - Erick Osborn OSA - 07/26/2024 10:03 AM EST Called the pharmacy to clarify the medications. Pharmacy had wrong fax number. Gave them [phone]. Stated they will refax med refill request * Telephone Encounter - Damari Stock LPN - 07/26/2024 9:08 AM EST Patient is taking iron supplements everyday for months and he has been more tired recently and has had less appetite. Patients spouse states he has received iron infusions at [facility] in the past. She would like to know if this is something he can get to get his strength back and appetite back? She is also asking if this is something he can have done at home or he would need to go to [facility] for? Spousestates she went to [facility] yesterday to picking supervisor prescriptions and they did not have medications ready and stated they were sending a fax request to the office. I have placed a note on nurses desk tolook for this fax, but she was very persistent that he was going to run out if we didn't get this taken care of. Please advise. Thank you. * Telephone Encounter - Chuy Batista MD - 07/25/2024 9:09 PM EST Please [...] Team (Late st Contact Info) Description 08/24/2024 9:00 AM EST Office Visit Hematology/Oncology [facility] 200 [facility] [place] [phone] Xavi Gramajo MD 200 [facility] [place] [address] 08/28/2024 3:00 PM EST Office [facility] 226 [facility] [place] [address] Chuy Batista MD 226 [facility] [address] 09/04/2024 1:00 PM EST Procedure Only Urology, [place] [address] [place] [address] Ernesto Villareal MD [address] [place] [address] 09/14/2024 1:00 PM EST Cardiac Studies Cardiac Studies, [facility] [address] [place] [address] 10/13/2024 11:20 AM EST Office Visit Neurology [facility] 200 [facility] [place] [address] Ellie Duncan MD 200 [facility] [place] [address] Health Maintenance Due Date Last Done Comments Albumin/Creatinine Ratio 1963 DTap/Tdap Vaccines (1 - Tdap) 1964 Adult Wellness Visit 02/01/2020 01/31/2019 COVID-19 Vaccine ( season) 2024 07/22/2022, 07/22/2022, 02/11/2022, Additional history exists CKD PHOS USE SMARTSET 72687 09/11/202408/17, 09/11/2023, 07/14/2021, Additional history exists Depression Screening 12/26/2024 12/27/2023 GFR 01/22/2025 07/24/2024, 03/17, 11/12/2023, Additional history exists CKD HGB USE SMARTSET 81377 07/24/202507/24, 07/24/2024, 04/12/2024, Additional history exists Pneumococcal [...] Power of Attor philipp? No Care Teams Animal Cop Relationship Specialty Start Date End Date Chuy Batista MD [address] [place] [facility] [place] [address] PCP - General Family Medicine 05/31/24 documented as of this encounter
--- OUTSIDE RECORDS SUMMARY | 2024-07-30 07:15 | External Medical Summary | Summary of Care ---
Author Name Unknown Organization [facility] Address [address] [place] [address] Phone [phone] Care Team Providers Care Fishing Hand Name Role Phone Chuy Batista MD Primary Care Provider +1- [phone] Reason for Visit * Reason Onset Date Comments Test Results 07/25/2024 Encounter Details Date Type Department Care Team (Late st Contact Info) Description 07/25/2024 Telephone [facility] Amanda Singh [address] [place] [address] Chuy Batista MD 226 [place] [address] Test Results Allergies Active Allergy Reactions Criticality [...] mRNA, LNP-s, No Pre serve, 2-Dose Series ([employer]) 05/30/2021,10/29/2020,10/08/2020 COVID-19, LNP-s, No Preserve , Prosper-sucrose, [...] Pharmacy had wrong fax number. Gave them [phone]. Stated they will refax med refill request * Telephone Encounter - Damari Stock LPN - 07/26/2024 9:08 AM EST Patient is taking iron supplements everyday for months and he has been more tired recently and has had less appetite. Patients spouse states he has received iron infusions at [facility] in the past. She would like to know if this is something he can get to get his strength back and appetite back? She is also asking if this is something he can have done at home or he would need to go to [facility] for? [place] [facility] and they did not have medications [...] 08/24/2024 9:00 AM EST Office Visit Hematology/Oncology [facility]ph [facility] [place] [address] [place] [address] Xavi Gramajo MD 200 [facility] [place] [address] 08/28/2024 3:00 PM EST Office Visit Family [facility] [address] Chuy Batista MD [address] [place] [address] 09/04/2024 1:00 PM EST Procedure Only Urology, [place] [address] [place] [address] Ernesto Villareal MD [address] [place] [address] 09/14/2024 1:00 PM EST Cardiac Studies Cardiac Studies, [facility] 132 [place] [address] 10/13/2024 11:20 AM EST Office Visit Neurology [facility] 200 [facility] [place] [address] Ellie Duncan MD 200 [facility] [place], [place] [address] Health Maintenance Due Date Last Done Comments Albumin/Creatinine Ratio 1963 DTap/Tdap Vaccines (1 - Tdap) 1964 Adult Wellness Visit 02/01/2020 01/31/2019 COVID-19 Vaccine ( season) 2024 07/22/2022, 07/22/2022, 02/11/2022, Additional history exists CKD PHOS USE SMARTSET 90822 09/11/202408/17, 09/11/2023, 07/14/2021, Additional history exists Depression Screening 12/26/2024 12/27/2023 GFR 01/22/2025 07/24/2024, 03/17, 11/12/2023, Additional history exists CKD HGB USE SMARTSET 89011 07/24/202507/24, 07/24/2024, 04/12/2024, Additional history exists Pneumococcal [...] Power of Attor philipp? No Care Teams Fishing Hand Relationship Specialty Start Date End Date Chuy Batista MD [address] [place] [address] PCP - General Family Medicine 05/31/24 documented as of this encounter
--- OUTSIDE RECORDS SUMMARY | 2024-07-30 07:15 | External Medical Summary | Summary of Care ---
Author Name Unknown Organization [facility] Address [address] [facility] [place] [address] Phone [phone] Care Team Providers Care Civil Preparedness Training Officer Name Role Phone Chuy Batista MD Primary Care Provider +1- [phone] Reason for Visit * Reason Onset Date Comments No Show 07/25/2024 Encounter Details Date Type Department Care Team (Late st Contact Info) Description 07/25/2024 Telephone Hematology/Oncology [facility] [place] 200 [facility] [place] [phone] Xavi Gramajo MD [address] [place] [address] No Show Allergies Active Allergy Reactions Criticality [...] Take 119 g by mouth once. Active [facility] Wound/Burn Dressing External GelIndications:P ressure injury [...] mg twice a day 60 Tablet 2 024 Active Solifenacin Succinate 5 MG Oral Tablet (VESIcare) Take 1 Tablet by mouth in the morning. 30 Tablet 6 024 Active Fludrocortisone Acetate 0.1 MG Oral Tablet [...] the morning and 64 mg before bedtime. 024 Active Hydrocortisone 10 MG Oral Tablet (Cortef)Indicati [...] mouth twice per day 60 Tablet 5 024 Active Lidocaine 4 % External Patch (Aspercreme)Denice cations:Chronic bilateral low back pain without sciatica Place 1 patch on skin over affected area daily (leave on for 12 hours). 30 Patch 1 024 Active Omeprazole 20 MG Oral Capsule Delayed [...] mRNA, LNP-s, No Pre serve, 2-Dose Series ([employer]) 05/30/2021,10/29/2020,10/08/2020 COVID-19, LNP-s, No Preserve , Prosper-sucrose, [...] as he just got out of a assisted. She is worried due to his blood [...] I had communicated with Dr Gramajo through [employer] that pt would not be able [...] 08/24/2024 9:00 AM EST Office Visit Hematology/Oncology [facility] [address] [place] [phone] Xavi Gramajo MD [address] [place] [address] 08/28/2024 3:00 PM EST [facility] [address] [place] [address] Chuy Batista MD 226 [facility] [address] 09/04/2024 1:00 PM EST Procedure Only Urology, [place] [address] [place] [address] Ernesto Villareal MD [address] [place], [place] [address] 09/14/2024 1:00 PM EST Cardiac Studies Cardiac Studies, [facility] [address] [place] [address] 10/13/2024 11:20 AM EST Office Visit Neurology [facility] 200 [facility] [place] [address] Ellie Duncan MD 200 [place] [address] Health Maintenance Due Date Last Done Comments Albumin/Creatinine Ratio 1963 DTap/Tdap Vaccines (1 - Tdap) 1964 Adult Wellness Visit 02/01/2020 01/31/2019 COVID-19 Vaccine (2023- season) 2024 07/22/2022, 07/22/2022, 02/11/2022, Additional history exists CKD PHOS USE SMARTSET 44508 09/11/202408/17, 09/11/2023, 07/14/2021, Additional history exists Depression Screening 12/26/2024 12/27/2023 GFR 01/22/2025 07/24/2024, 03/17, 11/12/2023, Additional history exists CKD HGB USE SMARTSET 39818 07/24/202507/24, 07/24/2024, 04/12/2024, Additional history exists Pneumococcal [...] Power of Attor philipp? No Care Teams Civil Preparedness Training Officer Relationship Specialty Start Date End Date Chuy Batista MD [address] [place] [address] PCP - General Family Medicine 05/31/24 documented as of this encounter
--- OUTSIDE RECORDS SUMMARY | 2024-07-30 07:15 | External Medical Summary | Summary of Care ---
Author Name Unknown Organization [facility] Address [address] [facility] [place] [address] Phone [phone] Care Team Providers Care Slab Grinder Name Role Phone Chuy Batista MD Primary Care Provider +1- [phone] Reason for Visit * Reason Onset Date Comments No Show 07/25/2024 Encounter Details Date Type Department Care Team (Late st Contact Info) Description 07/25/2024 Telephone Hematology/Oncology [facility] Arleen [place] 200 [facility] [place] [phone] Xavi Gramajo MD [address] [place] [address] No Show Allergies Active Allergy Reactions Criticality [...] Take 119 g by mouth once. Active [facility] Wound/Burn Dressing External GelIndications:P ressure injury [...] mRNA, LNP-s, No Pre serve, 2-Dose Series ([employer]) 05/30/2021,10/29/2020,10/08/2020 COVID-19, LNP-s, No Preserve , Prosper-sucrose, [...] encounter Miscellaneous Notes * Telephone Encounter - Xavi Gramajo MD [...] as he just got out of a prison. She is worried due to his blood [...] I had communicated with Dr Gramajo through [place] Text that pt would not be able [...] 08/24/2024 9:00 AM EST Office Visit Hematology/Oncology [address] [place] [phone] Xavi Gramajo MD [address] [place] [address] [place] [address] 08/28/2024 3:00 PM EST Office Visit [facility] [address] [place] [address] Chuy Batista MD [address] [place] [address] 09/04/2024 1:00 PM EST Procedure Only Urology, [place] [address] [place] [address] Ernesto Villareal MD [address] [place], [place] [id number] 09/14/2024 1:00 PM EST Cardiac Studies Cardiac Studies, [facility] [address] [place] [address] 10/13/2024 11:20 AM EST Office Visit Neurology [facility] 200 [facility] [place] [address] Ellie Duncan MD 200 [facility] [place] [address] Health Maintenance Due Date Last Done Comments Albumin/Creatinine Ratio 1963 DTap/Tdap Vaccines (1 - Tdap) 1964 Adult Wellness Visit 02/01/2020 01/31/2019 COVID-19 Vaccine ( season) 2024 07/22/2022, 07/22/2022, 02/11/2022, Additional history exists CKD PHOS USE SMARTSET 58137 09/11/202408/17, 09/11/2023, 07/14/2021, Additional history exists Depression Screening 12/26/2024 12/27/2023 GFR 01/22/2025 07/24/2024, 03/17, 11/12/2023, Additional history exists CKD HGB USE SMARTSET 72139 07/24/202507/24, 07/24/2024, 04/12/2024, Additional history exists Pneumococcal [...] Power of Attor philipp? No Care Teams Slab Grinder Relationship Specialty Start Date End Date Chuy Batista MD [address] [place] [address] PCP - General Family Medicine 05/31/24 documented as of this encounter
--- OUTSIDE RECORDS SUMMARY | 2024-07-30 07:15 | External Medical Summary | Summary of Care ---
Author Name Unknown Organization [facility] Address [address] [facility] [place] [address] Phone [phone] Care Team Providers Care Ornamental Ironworking Supervisor Name Role Phone Chuy Batista MD Primary Care Provider +1- [phone] Reason for Visit * Reason Onset Date Comments No Show 07/25/2024 Encounter Details Date Type Department Care Team (Late st Contact Info) Description 07/25/2024 Telephone Hematology/Oncology [facility] Arleen [place] 200 [facility] [place] [phone] Xavi Gramajo MD [address] [place] [address] No Show Allergies Active Allergy Reactions Criticality [...] Take 119 g by mouth once. Active [facility] Wound/Burn Dressing External GelIndications:P ressure injury [...] mRNA, LNP-s, No Pre serve, 2-Dose Series ([employer]) 05/30/2021,10/29/2020,10/08/2020 COVID-19, LNP-s, No Preserve , Prosper-sucrose, [...] as he just got out of a penitentiary. She is worried due to his blood [...] I had communicated with Dr Gramajo through [place] Text that pt would not be able [...] 08/24/2024 9:00 AM EST Office Visit Hematology/Oncology [facility] 200 [facility] [place] [phone] Xavi Gramajo MD 200 [facility] [place] [address] 08/28/2024 3:00 PM EST Office Visit [facility] [address] [place] [phone] Chuy Batista MD [address] [place] [address] 09/04/2024 1:00 PM EST Procedure Only Urology, [place] [address] [place] [address] Ernesto Villareal MD [address] [place] [address] 09/14/2024 1:00 PM EST Cardiac Studies Cardiac Studies, [facility] [address] [place] [address] 10/13/2024 11:20 AM EST Office Visit Neurology [facility] 200 [facility] [place] [address] Ellie Duncan MD 200 [facility] [place] [address] Health Maintenance Due Date Last Done Comments Albumin/Creatinine Ratio 1963 DTap/Tdap Vaccines (1 - Tdap) 1964 Adult Wellness Visit 02/01/2020 01/31/2019 COVID-19 Vaccine ( season) 2024 07/22/2022, 07/22/2022, 02/11/2022, Additional history exists CKD PHOS USE SMARTSET 81935 09/11/202408/17, 09/11/2023, 07/14/2021, Additional history exists Depression Screening 12/26/2024 12/27/2023 GFR 01/22/2025 07/24/2024, 03/17, 11/12/2023, Additional history exists CKD HGB USE SMARTSET 29871 07/24/202507/24, 07/24/2024, 04/12/2024, Additional history exists Pneumococcal [...] Power of Attor philipp? No Care Teams Ornamental Ironworking Supervisor Relationship Specialty Start Date End Date Chuy Batista MD [address] [place] [address] PCP - General Family Medicine 05/31/24 documented as of this encounter
--- OUTSIDE RECORDS SUMMARY | 2024-07-30 07:15 | External Medical Summary | Summary of Care ---
Author Name Unknown Organization [facility] Address [address] [facility] [place] [address] Phone [phone] Care Team Providers Care Match Maker Name Role Phone Chuy Batista MD Primary Care Provider +1- [phone] Reason for Visit * Reason Onset Date Comments No Show 07/25/2024 Encounter Details Date Type Department Care Team (Late st Contact Info) Description 07/25/2024 Telephone Hematology/Oncology [facility] Arleen [place] 200 [facility] [place] [phone] Xavi Gramajo MD [address] [place] [address] No Show Allergies Active Allergy Reactions Criticality [...] Take 119 g by mouth once. Active [facility] Wound/Burn Dressing External GelIndications:P ressure injury [...] mRNA, LNP-s, No Pre serve, 2-Dose Series ([employer]) 05/30/2021,10/29/2020,10/08/2020 COVID-19, LNP-s, No Preserve , Prosper-sucrose, [...] as he just got out of a senior living. She is worried due to his blood [...] I had communicated with Dr Gramajo through [place] Text that pt would not be able [...] 08/24/2024 9:00 AM EST Office Visit Hematology/Oncology [facility] 200 [facility] [place] [phone] Xavi Gramajo MD 200 [facility] [place] [address] 08/28/2024 3:00 PM EST Office Visit [facility] [address] [place] [phone] Chuy Batista MD [address] [place] [address] 09/04/2024 1:00 PM EST Procedure Only Urology, [place] [address] [place] [address] Ernesto Villareal MD [address] [place] [address] 09/14/2024 1:00 PM EST Cardiac Studies Cardiac Studies, [facility] 132 [facility] [place] [address] 10/13/2024 11:20 AM EST Office Visit Neurology [facility] 200 [facility] [place] [address] Ellie Duncan MD 200 [facility] [place] [address] Health Maintenance Due Date Last Done Comments Albumin/Creatinine Ratio 1963 DTap/Tdap Vaccines (1 - Tdap) 1964 Adult Wellness Visit 02/01/2020 01/31/2019 COVID-19 Vaccine ( season) 2024 07/22/2022, 07/22/2022, 02/11/2022, Additional history exists CKD PHOS USE SMARTSET 61251 09/11/202408/17, 09/11/2023, 07/14/2021, Additional history exists Depression Screening 12/26/2024 12/27/2023 GFR 01/22/2025 07/24/2024, 03/17, 11/12/2023, Additional history exists CKD HGB USE SMARTSET 39595 07/24/202507/24, 07/24/2024, 04/12/2024, Additional history exists Pneumococcal [...] Power of Attor philipp? No Care Teams Match Maker Relationship Specialty Start Date End Date Chuy Batista MD [address] [place] [address] PCP - General Family Medicine 05/31/24 documented as of this encounter
--- OUTSIDE RECORDS SUMMARY | 2024-07-30 07:15 | External Medical Summary | Summary of Care ---
Author Name Unknown Organization [facility] Address [address] [facility] [place] [address] Phone [phone] Care Team Providers Care Inspection Machine Tender Name Role Phone Chuy Batista MD Primary Care Provider +1- [phone] Reason for Visit * Reason Onset Date Comments No Show 07/25/2024 Encounter Details Date Type Department Care Team (Late st Contact Info) Description 07/25/2024 Telephone Hematology/Oncology [facility] Arleen [place] 200 [facility] [place] [phone] Xavi Gramajo MD [address] [place] [address] No Show Allergies Active Allergy Reactions Criticality Noted Date Comments Chocolate Diarrhea 05/14/2023 Chocolate Flavoring Agent (Non-Screening) High 10/09/2023 Other Reaction(s): DIARRHEA/ Cannot take, interacts w/ medications. Clindamycin Hcl 09/24/2005 rash Cranberry 10/20/2023 Iodinated Contrast Media 10/01/2015 Ioversol Other (Please comment) High 08/10/[address] IV DYE Pembrolizumab High 10/10/2023 Other Reaction(s): myocarditis documented as of this encounter (statuses as of 07/25/2024) Medications Syringe/Needle, Disp, 25G X 1-1/2" 3 [...] Take 119 g by mouth once. Active [facility] Wound/Burn Dressing External GelIndications:P ressure injury of [...] as of this encounter (statuses as of 07/25/2024) Active Problems Problem Noted Date Diagnosed Date [...] as of this encounter (statuses as of 07/25/2024) Resolved Problems Problem Noted Date Diagnosed Date [...] as of this encounter (statuses as of 07/25/2024) Immunizations Name Administration Dates Next Due COVID-19 mRNA, LNP-s, No Pre serve, 2-Dose Series ([employer]) 05/30/2021,10/29/2020,10/08/2020 COVID-19, LNP-s, No Preserve , Prosper-sucrose, [...] I had communicated with Dr Gramajo through [place] Text that pt would not be able [...] Care Team (Late st Contact Info) Description 08/28/2024 3:00 PM EST Office Visit [facility] [address] [place] [phone] Chuy Batista MD [address] [place] [address] 09/04/2024 1:00 PM EST Procedure Only Urology, [place] [address] [place] [address] Ernesto Villareal MD [address] [place] [address] 09/14/2024 1:00 PM EST Cardiac Studies Cardiac Studies, [facility] 132 [place] [address] 10/13/2024 11:20 AM EST Office Visit Neurology [facility] [place] 200 [facility] [place] [address] Ellie Duncan MD 200 [place] [address] Health Maintenance Due Date Last Done Comments Albumin/Creatinine Ratio 1963 DTap/Tdap Vaccines (1 - Tdap) 1964 Adult Wellness Visit 02/01/2020 01/31/2019 COVID-19 Vaccine ( season) 2024 07/22/2022, 07/22/2022, 02/11/2022, Additional history exists CKD PHOS USE SMARTSET 84326 09/11/202408/17, 09/11/2023, 07/14/2021, Additional history exists Depression Screening 12/26/2024 12/27/2023 GFR 01/22/2025 07/24/2024, 03/17, 11/12/2023, Additional history exists CKD HGB USE SMARTSET 29119 07/24/202507/24, 07/24/2024, 04/12/2024, Additional history exists Pneumococcal [...] Power of Attor philipp? No Care Teams Inspection Machine Tender Relationship Specialty Start Date End Date Chuy Batista MD [address] [place] [address] PCP - General Family Medicine 05/31/24 documented as of this encounter
--- OUTSIDE RECORDS SUMMARY | 2024-07-30 07:15 | External Medical Summary | Summary of Care ---
Author Name Unknown Organization [facility] Address [address] [place] [address] Phone [phone] Care Team Providers Care Washing Tub Operator Name Role Phone Arnold Willis MD Primary Care Provider +1- [phone] Reason for Visit * Reason Onset Date Comments Test Results 07/25/2024 Encounter Details Date Type Department Care Team (Late st Contact Info) Description 07/25/[address] [facility] Amanda Singh 226 [place] [phone] Arnold Willis MD 226 [facility] [address] Test Results Allergies Active Allergy Reactions Criticality [...] mRNA, LNP-s, No Pre serve, 2-Dose Series ([employer]) 05/30/2021,10/29/2020,10/08/2020 COVID-19, LNP-s, No Preserve , Prosper-sucrose, [...] the requested meds have been sent to [facility]. Can let them know that I will make sure that Dr Gramajo is aware of the recent test results. If he feels that patient should have iron infusions, we will let them know. For now, continue oral supplementation. * Telephone Encounter - Nancy Finn assistant men's lacrosse coach - 07/26/2024 1:37 PM EST Pharmacy calling requesting the following medication below that is listed as "Historical". The following information was provided: Medication Name: methocarbamol Strength: 500mg Directions: 1 tid prn for back pain Preferred Quantity: 90 Previous Prescriber: Dr. Mitchel Norton Preferred Pharmacy: [facility] [address] [place] [address] [address] [place] Medication Name: myrbetric Strength: 25mg tablet Directions: 1 a day Preferred Quantity: 30 Previous Prescriber: Dr. Mitchel Norton Preferred Pharmacy: [facility] [address] [place] [address] [address] [place] Medication Name: vitamin d3 Strength: 125 mcg cap Directions: 1 a day Preferred Quantity: 30 Previous Prescriber: Dr. Mitchel Norton Preferred Pharmacy: [facility] [id number] [place] Please review and approve if appropriate. Thank you, Nancy Finn [facility] Want Ad Supervisor II [facility] 07/26/2024, 1:37 PM * Telephone Encounter - Erick Osborn OSA - 07/26/2024 10:03 AM EST Called the pharmacy to clarify the medications. Pharmacy had wrong fax number. Gave them [phone]. Stated they will refax med refill request * Telephone Encounter - Damari Stock LPN - 07/26/2024 9:08 AM EST Patient is taking iron supplements everyday for months and he has been more tired recently and has had less appetite. Patients spouse states he has received iron infusions at [facility] in the past. She would like to know if this is something he can get to get his strength back and appetite back? She is also asking if this is something he can have done at home or he would need to go to [facility] for? [place] she went to [facility] yesterday to cotton picking machine operator prescriptions [...] 08/24/2024 9:00 AM EST Office Visit Hematology/Oncology [facility] [address] [place] [phone] Xavi Gramajo MD 200 [facility] [place] [address] 08/28/2024 3:00 PM EST Office Visit [facility] [address] [place] [phone] Arnold Willis MD [address] [place] [address] 09/04/2024 1:00 PM EST Procedure Only Urology, [place] [address] [place], [place] [phone] Ernesto Villareal MD [address] [place], [place] [address] 09/14/2024 1:00 PM EST Cardiac Studies Cardiac Studies, [facility] [address] [place] [address] 10/13/2024 11:20 AM EST Office Visit Neurology [facility] 200 [facility] [place] [address] Ellie Duncan MD 200 [facility] [place] [address] Health Maintenance Due Date Last Done Comments Albumin/Creatinine Ratio 1963 DTap/Tdap Vaccines (1 - Tdap) 1964 Adult Wellness Visit 02/01/2020 01/31/2019 COVID-19 Vaccine ( season) 2024 07/22/2022, 07/22/2022, 02/11/2022, Additional history exists CKD PHOS USE SMARTSET 18322 09/11/202408/17, 09/11/2023, 07/14/2021, Additional history exists Depression Screening 12/26/2024 12/27/2023 GFR 01/22/2025 07/24/2024, 03/17, 11/12/2023, Additional history exists CKD HGB USE SMARTSET 69422 07/24/202507/24, 07/24/2024, 04/12/2024, Additional history exists Pneumococcal [...] Power of Attor philipp? No Care Teams Washing Tub Operator Relationship Specialty Start Date End Date Arnold Willis MD [address] [place] [address] PCP - General Family Medicine 05/31/24 documented as of this encounter
--- OUTSIDE RECORDS SUMMARY | 2024-07-30 07:16 | External Medical Summary | Continuity Of Care Document ---
Author Name Unknown Address [address] [address] [facility] () Care Team Providers Care Marketing Research Coordinator Name Role Phone DO Mallory Amy Primary Care Provider [phone] Allergies Allergy Reaction Start Date End Date Status IODINATED CONTRAST MEDIA Active CLINDAMYCIN Active CHOCOLATE FLAVOR Active Medications Medication Instructions Dosage Start Date End Date Status Order Date Drug Code Frequency Route of Admin Diagnosis Code Substitutions Allowed Tubersol 5 tub. unit/0.1 mL intradermal injection solution [Tuberculin PPD] 0.1 mL Intradermal 1 time For PPD Step 1 GIVE on Day 1 and read results Day 3 0.1 mL 07/08 Inactiv e 2023 11223 04387 0 1 time Intrad ermal False Tubersol 5 tub. unit/0.1 mL intradermal injection solution [Tuberculin PPD] 0.1mL Intradermal 1 time For PPD 2nd Step Give 2nd Step PPD Day 1 and Read results Day 3 (schedule 7 days after 1st READ) 0.1mL 07/08 Inactiv e 2023 96505 64644 0 1 time Intrad ermal False Tubersol 5 tub. unit/0.1 mL intradermal injection solution [Tuberculin PPD] 0.1 mL Intradermal 1 time For PPD Step 1 GIVE on Day 1 and read results Day 3 0.1 mL 07/10 Inactiv e 2023 22053 13509 0 1 time Intrad ermal False Tubersol 5 tub. unit/0.1 mL intradermal injection solution [Tuberculin PPD] 0.1mL Intradermal 1 time For PPD 2nd Step Give 2nd Step PPD Day 1 and Read results Day 3 (schedule 7 days after 1st READ) 0.1mL 07/19 Inactiv e 2023 75511 17899 0 1 time Intrad ermal False Tylenol 325 mg tablet 2 tabs By Mouth Every 4 hours as needed For Pain DO NOT EXCEED 3000 MG APAP/24 Hours 2 tabs 2023 Active 2023 12150 57038 0 Every 4 hours as needed By Mouth False Tylenol 325 mg tablet 2 tabs By Mouth Every 4 hours as needed For Fever >100 DO NOT EXCEED 3000 MG APAP/24 Hours 2 tabs 2023 Active 2023 48742 38098 0 Every 4 hours as needed By Mouth False Dulcolax (bisacodyl) 10 mg rectal suppository One Suppository per rectum PRN if Milk of Magnisia ineffective. Give on day 5 of no BM 1 sup 2023 Active 2023 49797 79811 1 Daily as needed Rectal False Fleet Enema 19 gram-7 gram/118 mL Administer per rectum PRN one time if dulcolax suppository not effective. Give on day 6 of no BM 1 2023 Active 2023 21828 73114 6 Daily as needed Rectal False Milk of Magnesia 400 mg/5 mL oral suspension [Magnesium hydroxide] PRN 30ml By Mouth Daily as needed for constipation one time daily if no BM, on day 4 of no BM (PRN refer to instructions) For Constipation 30 mL 07/08 Inactiv e 2023 51763 67961 6 Daily as needed By Mouth False Nitroglycer in 0.4 mg sublingual tablet [generic] PRN 0.4 mg Sublingual Every 5 minutes as needed Every 5 min PRN x 3 doses PRN chest pain and notify provider For Chest Pain 0.4 mg 2023 Active 2023 93747 19630 5 Every 5 minutes as needed Sublin gual False Aripiprazol e 5 mg tablet [generic] 1/2 Tab By Mouth Once daily For depression 1/2 Tab 2023 Active 2023 09861 55471 1 Once daily By Mouth False Escitalopra m 5 mg tablet [generic] 1 tablet By Mouth Once daily For depression 1 tablet 2023 Active 2023 29751 06914 1 Once daily By Mouth False Probiotic (B. coagulans) 1 billion cell chewable tablet 1 tablet By Mouth Once daily For supplement 1 tablet 2023 Active 2023 98895 15563 7 Once daily By Mouth False Memantine 10 mg tablet [generic] 1 tablet By Mouth Twice daily For alzheimers 1 tablet 2023 Active 2023 40625 81737 0 Twice daily By Mouth False Lidocaine 4 % topical patch [generic] 2 patches Topical - apply in the morning and remove at night For pain 2 patches 2023 Active 2023 61202 03283 0 Twice daily Topica l False Nystatin (bulk) 1 billion unit powder [generic] apply Topically twice daily to affected skin For fungal skin infection apply 2023 Active 2023 24648 19680 6 Twice daily Topica l False Nystatin (bulk) 1 billion unit powder [generic] apply Topical Twice daily For fungal skin breakdown apply 2023 Active 2023 89916 15713 6 Twice daily Topica l False Albuterol sulfate HFA 90 mcg/actuati on aerosol inhaler [generic] 2 puffs Inhalation Every 4 hours As Needed For COPD 2 puffs 07/11 Inactiv e 2023 29707 35583 2 Every 4 hours Inhala tion False Ascorbic acid (vitamin C) 1,000 mg capsule [generic] 1 tablet By Mouth Once daily For supplement 1 tablet 2023 Active 2023 46528 56507 2 Once daily By Mouth False Epinephrine 0.1 mg/mL injection syringe [generic] 1 dose Intramuscular As Needed for For anaphylaxis 1 dose 2023 Active 2023 70825 58834 1 Intram uscula r False Magnesium 64 mg (magnesium chloride) tablet,opal yed release [generic] 1 tablet By Mouth Twice daily For supplement 1 tablet 2023 Active 2023 14730 88211 6 Twice daily By Mouth False Multivitami n tablet [generic] 1 tablet By Mouth Once daily For supplement 1 tablet 2023 Active 2023 91316 17360 4 Once daily By Mouth False Senna 8.6 mg tablet 1 tablet By Mouth Once daily For constipation 1 tablet 2023 Active 2023 15302 70245 1 Once daily By Mouth False Solifenacin 5 mg tablet [generic] 1 tablet By Mouth Once daily For pulmonary hypertension 1 tablet 2023 Active 2023 06009 45348 0 Once daily By Mouth False Aspirin 81 mg tablet,opal yed release [generic] 1 tablet By Mouth Once daily For DVT prevention 1 tablet 2023 Active 2023 96412 52745 9 Once daily By Mouth False Cholecalcif emily (vitamin D3) 1,250 mcg (50,000 unit) capsule [generic] 1 tablet By Mouth Once daily For supplement 1 tablet 07/11 Inactiv e 2023 38864 71456 6 Once daily By Mouth False Cyanocobala min (vit B-12) 1,000 mcg tablet [generic] 1 tablet By Mouth Once daily For supplement 1 tablet 2023 Active 2023 06919 25177 5 Once daily By Mouth False Ferrous sulfate 325 mg (65 mg iron) tablet [generic] 1 tablet By Mouth Once daily For supplement 1 tablet 2023 Active 2023 44902 98900 5 Once daily By Mouth False Fludrocorti sone 0.1 mg tablet [generic] 1 tablet by mouth Once daily For adrenal insufficiency 1 tablet 2023 Active 2023 19647 42620 1 Once daily By Mouth False Omeprazole 20 mg capsule,del ayed release [generic] 1 tablet By Mouth Once daily before breakfast For GERD 1 tablet 2023 Active 2023 60613 65208 1 Once daily By Mouth False Trelegy Ellipta 100 mcg-62.5 mcg-25 mcg powder for inhalation 1 inhalation Inhalation Once daily For copd 1 inhalat ion 2023 Active 2023 09204 37840 0 Once daily Inhala tion False Hydrocortis one 20 mg tablet [generic] 1 tablet By Mouth Once daily For COPD 1 tablet 07/07 Inactiv e 2023 68241 75782 1 Once daily By Mouth False Hydrocortis one 10 mg tablet [generic] 1 tablet By Mouth Once daily in the afternoon - BE AWARE HYDROCORTISON E 20MG IN THE AM, 10MG in the afternoon For COPD 1 tablet 07/14 Inactiv e 2023 91638 24847 1 Once daily By Mouth False Hydrocortis one 20 mg tablet [generic] 07/07 Inactiv e 2023 95457 88049 1 Hydrocortis one 20 mg tablet [generic] 1 tablet By Mouth Once daily For COPD - BE AWARE HYDROCORTISON E 20MG IN THE AM, 10MG in the afternoon 1 tablet 2023 Active 2023 28842 81022 1 Once daily By Mouth False Miralax 17 gram/dose oral powder 17 gram By Mouth Once daily For Constipation 17 gram 2023 Active 2023 82337 80655 0 Once daily By Mouth False Myrbetriq 25 mg tablet,exte nded release 25 mg By Mouth Once daily For Bladder Spasms 25 mg 2023 Active 2023 81206 75022 7 Once daily By Mouth False Albuterol sulfate HFA 90 mcg/actuati on aerosol inhaler [generic] 2 puffs Inhalation Every 4 hours as needed For SOB/wheezing 2 puffs 2023 Active 2023 77148 98573 2 Every 4 hours as needed Inhala tion False Problems Code Description Start Date End Date Status A41.9 Sepsis, unspecified organism 07/07/2024 0000/0 000 Active G93.41 Metabolic encephalopathy 07/07/2024 Active M62.81 Muscle weakness (generalized) 07/07/2024 Active 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 Essential (primary) hypertension 07/07/2024 Active I95.1 Orthostatic hypotension 07/07/2024 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 publicity person [place] diseases classified elsewhere 07/07/2024 Active K21.9 Gastro-esophageal re flux disease without esophagitis 07/07/2024 Active I51.4 Myocarditis, unspecified 07/07/2024 Active G31.84 Mild cognitive impai rment of uncertain or unknown etiology 07/07/2024 Active R26.89 Other abnormalities of gait and mobility 2023 Active R33.8 Other retention of urine 07/07/2024 Active Z96.0 Presence of urogenital implants 07/07/2024 Active I87.2 Venous insufficiency (chronic) (peripheral) Active N18.30 Chronic kidney disease, stage 3 unspecified Active N39.0 Urinary tract infection, site not specified Active R31.9 Hematuria, unspecified 07/07/2024 Ac tive VITAL SIGNS Date Time Diastolic blood pressure Systolic blood pressure Body height Body weight Temperature SpO2 Blood Sugar Pulse Respirations 122 86717 0 68.00 mm[Hg] - Sitting 101.00 mm[Hg] - Sitting 72 NI 234.60 NI 98.20 Tympanic 98.00 % 85.00/ min 18.00/min 122 13938 6 70.00 mm[Hg] - Lying Down 110.00 mm[Hg] - Lying Down 97.80 Tympanic 84.00/ min 18.00/min 123 96000 1 74.00 mm[Hg] - Lying Down 116.00 mm[Hg] - Lying Down 97.40 Tympanic 74.00/ min 18.00/min 123 80206 4 74.00 mm[Hg] - Sitting 116.00 mm[Hg] - Sitting 97.40 Tympanic 74.00/ min 18.00/min 123 22014 4 74.00 mm[Hg] - Sitting 116.00 mm[Hg] - Sitting 97.40 Tympanic 74.00/ min 18.00/min 123 16457 5 82.00 mm[Hg] - Lying Down 153.00 mm[Hg] - Lying Down 98.00 Tympanic 98.00 % 71.00/ min 20.00/min 123 69879 1 84995 124 27339 6 82.00 mm[Hg] - Lying Down 153.00 mm[Hg] - Lying Down 98.00 Tympanic 71.00/ min 20.00/min 124 74956 5 82.00 mm[Hg] - Sitting 153.00 mm[Hg] - Sitting 98.00 Tympanic 71.00/ min 20.00/min 124 82637 0 62.00 mm[Hg] - Sitting 113.00 mm[Hg] - Sitting 97.80 Tympanic 72.00/ min 18.00/min 124 02277 0 62.00 mm[Hg] - Sitting 113.00 mm[Hg] - Sitting 97.80 Forehead Scan 95.00 % 72.00/ min 18.00/min 124 05694 5 77.00 mm[Hg] - Sitting 145.00 mm[Hg] - Sitting 125 16018 5 66.00 mm[Hg] - Sitting 120.00 mm[Hg] - Sitting 97.10 Tympanic 78.00/ min 18.00/min 125 79355 0 68.00 mm[Hg] - Sitting 101.00 mm[Hg] - Sitting 98.20 Tympanic 85.00/ min 18.00/min 125 90062 0 78.00 mm[Hg] - Sitting 141.00 mm[Hg] - Sitting 98.30 Forehead Scan 99.00 % 76.00/ min 18.00/min 125 06840 7 68.00 mm[Hg] - Sitting 121.00 mm[Hg] - Sitting 126 12597 7 82.00 mm[Hg] - Lying Down 169.00 mm[Hg] - Lying Down 98.10 Tympanic 97.00 % 84.00/ min 16.00/min 127 06264 6 75.00 mm[Hg] - Lying Down 144.00 mm[Hg] - Lying Down 98.30 Tympanic 99.00 % 58.00/ min 18.00/min 128 73375 5 71.00 mm[Hg] - Sitting 126.00 mm[Hg] - Sitting 98.20 Tympanic 99.00 % 97.00/ min 18.00/min 129 51174 0 84.00 mm[Hg] - Sitting 145.00 mm[Hg] - Sitting 98.40 Tympanic 98.00 % 82.00/ min 18.00/min 130 79357 0 87.00 mm[Hg] - Sitting 144.00 mm[Hg] - Sitting 98.40 Forehead Scan 100.0 0% 75.00/ min 18.00/min 201 40273 8 98.00 Tympanic 73.00/ min 18.00/min 201 51841 9 64.00 mm[Hg] - Sitting 117.00 mm[Hg] - Sitting 201 68029 8 226.60 NI 201 13008 0 68.00 mm[Hg] - Sitting 116.00 mm[Hg] - Sitting 98.20 Forehead Scan 96.00 % 81.00/ min 18.00/min 202 27276 0 62.00 mm[Hg] - Sitting 111.00 mm[Hg] - Sitting 98.90 Tympanic 97.00 % 76.00/ min 18.00/min 203 32891 9 64.00 mm[Hg] - Sitting 118.00 mm[Hg] - Sitting 98.60 Forehead Scan 97.00 % 80.00/ min 18.00/min 83 5 80.00 mm[Hg] - Sitting 170.00 mm[Hg] - Sitting 98.30 Tympanic 99.00 % 68.00/ min 18.00/min 18132 0 78.00 mm[Hg] - Sitting 148.00 mm[Hg] - Sitting 01 9 84.00 mm[Hg] - Lying Down 163.00 mm[Hg] - Lying Down 98.30 Tympanic 99.00 % 67.00/ min 20.00/min
--- OUTSIDE RECORDS SUMMARY | 2024-07-30 07:16 | External Medical Summary ---
Author Name Unknown Address Unknown Organization K01:LABORATORY [facility] – [place] - [facility] [address] [place] [address] Laboratory Report Ordering Provider Test Date Status EVELYN STUBBS 07/24/2024 13:11:52 Final Observation Date Value Abnormality Reference (Units ) Status WBC, Total 07/24/2024 13:11:52 8.22 4.00-10.80 (K/uL) Final RBC 07/24/2024 13:11:52 3.92 4.50-5.25 (M/uL) Final Hemoglobin 07/24/2024 13:11:52 11.1 Below low normal 14.0-16.8 (g/dL) Final HCT 07/24/2024 13:11:52 37.6 Below low normal 40.0-48.4 (%) Final MCV 07/24/2024 13:11:52 95.9 82.0-99.5 (fL) Final MCH 07/24/2024 13:11:52 28.3 27.0-34.0 (pg) Final MCHC 07/24/2024 13:11:52 29.5 32.0-36.0 (g/dL) Final RDW 07/24/2024 13:11:52 14.7 11.5-15.5 (%) Final Platelets 07/24/2024 13:11:52 358 140-400 (K/uL) Final MPV 07/24/2024 13:11:52 9.1 6.6-11.1 (fL) Final Nucleated erythrocytes/100 leukocytes [Ratio] in Blood by Automated count 07/24/2024 13:11:52 0 <=0 (/100 WBCs) Final Performing Location LAB[facility]ORY [facility] – [place] - [address] [address]
--- OUTSIDE RECORDS SUMMARY | 2024-07-30 07:16 | External Medical Summary | Summary of Care ---
Author Name Unknown Organization [facility] Address [address] [facility] [address] [place] [address] Phone [phone] Care Team Providers Care Technical Instructor Course Developer Name Role Phone Chuy Batista MD Primary Care Provider [phone] Reason for Visit * Reason Onset Date Comments No Show 07/25/2024 Encounter Details Date Type Department Care Team (Late st Contact Info) Description 07/25/2024 Telephone Hematology/Oncology [facility] [address] [place] [address] [facility] [place] [phone] Xavi Gramajo MD [address] [place] [address] No Show Allergies Active Allergy Reactions Criticality [...] mouth in the morning. 90 Capsule 1 11/12/19 24 Active [facility] Wound/Burn Dressing External GelIndications:Pr essure [...] hours). 30 Patch 1 07/24/20 24 Active documented as of this encounter [...] mRNA, LNP-s, No Pre serve, 2-Dose Series (Zen Planner) 05/30/2021,10/29/2020,10/08/2020 COVID-19, LNP-s, No Preserve , Prosper-sucrose, [...] encounter Miscellaneous Notes * Telephone Encounter - Edie Harris CMA - 07/25/2024 3:40 PM EST Please contact patient in regards to NO SHOW Appointment today with . Thank you. documented in this encounter Plan of Treatment Upcoming Encounters Date Type Department Care Team (Late st Contact Info) Description 08/28/2024 3:00 PM EST Office Visit [facility] [address] [place] [phone] Chuy Batista MD [address] [place] [address] 09/04/2024 1:00 PM EST Procedure Only Urology, [place] [address] [place], [place] [id number] Ernesto Villareal MD [address] [place], [place] [id number] 09/14/2024 1:00 PM EST Cardiac Studies Cardiac Studies, [facility] [address] [facility] [place] [address] 10/13/2024 11:20 AM EST Office Visit Neurology [facility] [address] [facility] [place] [address] Ellie Duncan MD [address] [facility] [place] [address] Health Maintenance Due Date Last Done Comments Albumin/Creatinine Ratio 1963 DTap/Tdap Vaccines (1 - Tdap) 1964 Adult Wellness Visit 02/01/2020 01/31/2019 COVID-19 Vaccine ( season) 2024 07/22/2022, 07/22/2022, 02/11/2022, Additional history exists CKD PHOS USE SMARTSET 99600 09/11/202408/17, 09/11/2023, 07/14/2021, Additional history exists Depression Screening 12/26/2024 12/27/2023 GFR 01/22/2025 07/24/2024, 03/17, 11/12/2023, Additional history exists CKD HGB USE SMARTSET 05305 07/24/202507/24, 07/24/2024, 04/12/2024, Additional history exists Pneumococcal [...] Power of Attor philipp? No Care Teams Technical Instructor Course Developer Relationship Specialty Start Date End Date Chuy Batista MD [address] [place] [address] PCP - General Family Medicine 05/31/24 documented as of this encounter
--- OUTSIDE RECORDS SUMMARY | 2024-07-30 07:16 | External Medical Summary ---
Author Name Unknown Address Unknown Organization K01[place] [facility] [place] [address] [facility] [place] [address] Laboratory Report Ordering Provider Test Date Status EVELYN STUBBS 07/24/2024 13:11:52 Final Observation Date Value Abnormality Reference (Units ) Status BUN 07/24/2024 13:11:52 10 6-20 (mg/dL) Final Creatinine 07/24/2024 13:11:52 1.2 0.6-1.2 (mg/dL) Final Glomerular filtration rate/1.73 sq M.predicted [Volume Rate/Area] in Serum, Plasma or Blood by Creatinine-based formula (CKD-EPI) 07/24/2024 13:11:52 64 >=60 (mL/min) Final eGFR is calculated based on the CKD-EPI 2020 equation. Sodium 07/24/2024 13:11:52 140 135-146 (m mol/L) Final Potassium 07/24/2024 13:11:52 4.1 3.5-5.1 (m mol/L) Final Cl 07/24/2024 13:11:52 102 98-107 (mm ol/L) Final CO2 07/24/2024 13:11:52 24 22-32 (mmo l/L) Final Anion gap 07/24/2024 13:11:52 14 7-15 (mmol /L) Final Glucose 07/24/2024 13:11:52 109 70-120 (mg /dL) Final Albumin 07/24/2024 13:11:52 3.5 Below low normal 3.8 -5.0 (g/dL) Final AST (Aspartate aminotransferase) 07/24/2024 13:11:52 12 10-50 (U/L) Fin al Alk Phos 07/24/2024 13:11:52 120 35-130 (U/ L) Final Bilirubin, Total 07/24/2024 13:11:52 0.3 <=1 .2 (mg/dL) Final Calcium 07/24/2024 13:11:52 9.1 8.4-10.2 ( mg/dL) Final Protein 07/24/2024 13:11:52 6.2 6.0-8.3 (g /dL) Final ALT (Alanine aminotransferase) 07/24/2024 13:11:52 10 10-50 (U/L) Karthikeyan suero Performing Location [facility] [place] [address] [facility] [address]
--- OUTSIDE RECORDS SUMMARY | 2024-07-30 07:16 | External Medical Summary ---
Author Name Unknown Address Unknown Organization K01:LAB[facility]ATORY [facility] – [place] - [address] [place] [address] Laboratory Report Ordering Provider Test Date Status EVELYN STUBBS 07/24/2024 13:11:52 Final Observation Date Value Abnormality Reference (Units ) Status Troponin T 07/24/2024 13:11:52 42 Above high normal < =22 (ng/L) Final Performing Location LAB[facility]ATORY [facility] – [place] - [address] [place] [address]
--- OUTSIDE RECORDS SUMMARY | 2024-07-30 07:16 | External Medical Summary ---
Author Name Unknown Address Unknown Organization K01:[facility] [place] [address] [facility] [address] [facility] [place] [address] Laboratory Report Ordering Provider Test Date Status EVELYN STUBBS 07/24/2024 13:11:52 Final Observation Date Value Abnormality Reference (Units ) Status SYNC LEUKOCYTES IN BLOOD BY AUTOMATED COUNT 07/24/2024 13:11:52 8.22 4.00-10.80 (K/uL) Final Segs 07/24/2024 13:11:52 78.5 Above high normal 40.0-75.0 (%) Final Lymphs % 07/24/2024 13:11:52 14.7 Below low normal 18.0-42.0 (%) Final Monos 07/24/2024 13:11:52 4.9 1.0-11.0 (%) Final Eosinophils 07/24/2024 13:11:52 1.0 0.0-6.0 (%) Final Basos 07/24/2024 13:11:52 0.5 0.0-2.0 (%) Final Immature Granulocyte, Percent 07/24/2024 13:11:52 0.4 0.0-2.0 (%) Final Absolute Segs 07/24/2024 13:11:52 6.46 1.80-7.70 (K/uL) Final Lymphs, absolute 07/24/2024 13:11:52 1.21 1.00-4.80 (K/ul) Final Monos, Abs 07/24/2024 13:11:52 0.40 0.00-1.10 (K/uL) Final Eos, Abs 07/24/2024 13:11:52 0.08 0.00-0.70 (K/uL) Final Basos, Abs 07/24/2024 13:11:52 0.04 0.00-0.20 (K/uL) Final Immature Granulocytes, Number 07/24/2024 13:11:52 0.03 0.00-0.20 (K/uL) Final Performing Location [facility] [place] [facility] [place] [address]
--- OUTSIDE RECORDS SUMMARY | 2024-07-30 07:16 | External Medical Summary ---
Author Name Unknown Address Unknown Organization K01:[facility] – [place] - [address] [place] [address] Laboratory Report Ordering Provider Test Date Status ALBA BARRETT 07/24/2024 13:11:52 Final Observation Date Value Abnormality Reference (Units ) Status Iron 07/24/2024 13:11:52 28 Below low normal 45-176 (ug/dL) Final Iron-binding capacity 07/24/2024 13:11:52 156 Below low normal 250-425 (ug/dL) Final Transferrin Sat % 07/24/2024 13:11:52 18 15-55 (%) Final Performing Location [facility] – [place] - [address] [place] [address]
--- OUTSIDE RECORDS SUMMARY | 2024-07-30 07:16 | External Medical Summary ---
Author Name Unknown Address Unknown Organization K01:LAB[facility]ATORY [facility] – [place] - [address] [place] [address] Laboratory Report Ordering Provider Test Date Status ALBA BARRETT 07/24/2024 13:11:52 Final Observation Date Value Abnormality Reference (Units ) Status Ferritin 07/24/2024 13:11:52 893 Above high normal 30 -400 (ng/mL) Final Performing Location LABORATORY [facility] - [address] [place] [address]
--- OUTSIDE RECORDS SUMMARY | 2024-07-30 07:16 | External Medical Summary | Summary of Care ---
Author Name Unknown Organization [facility] Address [address] [place] [address] Phone [phone] Care Team Providers Care Meat Loiner Name Role Phone Chuy Batista MD Primary Care Provider +1- [phone] Reason for Visit * Reason Comments Outpatient Testing Encounter Details Date Type Department Care Team (Late st Contact Info) Description 07/24/2024 12:50 PM EST Laboratory Laboratory, [facility] [address] [place] [address] [place], Laboratory [address] [place] [address] Urothelial carcinoma of bladder (HCC); Other acute myocarditis; Iron deficiency anemia, unspecified iron deficiency anemia type; Chronic kidney disease, stage 3b (HCC) Allergies Active Allergy Reactions Criticality Noted Date Comments Chocolate Diarrhea 05/14/2023 Chocolate Flavoring Agent (Non-Screening) High 10/09/2023 Other Reaction(s): DIARRHEA/ Cannot take, interacts w/ medications. Clindamycin Hcl 09/24/2005 rash Cranberry 10/20/2023 Iodinated Contrast Media 10/01/2015 Ioversol Other (Please comment) High 08/10/[address] IV DYE Pembrolizumab High 10/10/2023 Other Reaction(s): myocarditis documented as of this encounter (statuses as of 07/24/2024) Medications Syringe/Needle, Disp, 25G X 1-1/2" 3 [...] morning. 90 Capsule 1 11/12/19 24 Active [facility] Wound/Burn Dressing External GelIndications:Pr essure injury [...] day 60 Tablet 5 07/24/20 24 Active documented as of this encounter (statuses as of 07/24/2024) Active Problems Problem Noted Date Diagnosed Date [...] as of this encounter (statuses as of 07/24/2024) Resolved Problems Problem Noted Date Diagnosed Date [...] as of this encounter (statuses as of 07/24/2024) Immunizations Name Administration Dates Next Due COVID-19 mRNA, LNP-s, No Pre serve, 2-Dose Series (Lumenpulse) 05/30/2021,10/29/2020,10/08/2020 COVID-19, LNP-s, No Preserve , Prosper-sucrose, [...] Elizabeth Marquez RN documented in this encounter Plan of Treatment Upcoming Encounters Date Type Department Care Team (Late st Contact Info) Description 07/25/2024 2:45 PM EST Office Visit Hematology/Oncology [facility] [place] [address] [place], [place] [phone] Xvai Gramajo MD [address] [facility] [place] [address] 08/28/2024 3:00 PM EST Office Visit [facility] [address] [place] [phone] Chuy Batista MD [address] [place] [address] 09/04/2024 1:00 PM EST Procedure Only Urology, [place] [address] [place] [address] Ernesto Villareal MD [address] [place] [address] 09/14/2024 1:00 PM EST Cardiac Studies Cardiac Studies, [facility] [address] [place] [address] 10/13/2024 11:20 AM EST Office Visit Neurology [facility] [address] [facility] [place] [address] Ellie Duncan MD [address] [facility] [place] [address] Pending Results Name Type Priority Associated Diagnoses Date /Time CBC WITH WBC DIFFERENTIAL Lab STAT Urothelial carcinoma of bladder (HCC) Other acute myocarditis 07/24/2024 1:11 PM EST COMPREHENSIVE METABOLIC PANEL Lab STAT Urothelial carcinoma of bladder (HCC) Other acute myocarditis 07/24/2024 1:11 PM EST TROPONIN T, HIGH SENSITIVITY Lab STAT Urothelial carcinoma of bladder (HCC) Other acute myocarditis 07/24/2024 1:11 PM EST CK Lab STAT Urothelial carcinoma of bladder (HCC) Other acute myocarditis 07/24/2024 1:11 PM EST FERRITIN Lab Routine Iron deficiency anemia, unspecified iron deficiency anemia type 07/24/2024 1:11 PM EST IRON SCREEN, INCLUDING TIBC Lab Routine Iron deficiency anemia, unspecified iron deficiency anemia type 07/24/2024 1:11 PM EST CBC Lab STAT Urothelial carcinoma of bladder (HCC) Other acute myocarditis 07/24/2024 1:11 PM EST DIFFERENTIAL, AUTOMATED Lab STAT Urothelial carcinoma of bladder (HCC) Other acute myocarditis 07/24/2024 1:11 PM EST Health Maintenance Due Date Last Done Comments Albumin/Creatinine Ratio 1963 DTap/Tdap Vaccines (1 - Tdap) 1964 Adult Wellness Visit 02/01/2020 01/31/2019 COVID-19 Vaccine ( season) 2024 07/22/2022, 07/22/2022, 02/11/2022, Additional history exists CKD PHOS USE SMARTSET 42937 09/11/202408/17, 09/11/2023, 07/14/2021, Additional history exists GFR 10/13/2024 04/12/2024, 10/15, 11/03/2023, Additional history exists Depression Screening 12/26/2024 12/27/2023 CKD HGB USE SMARTSET 39155 04/12/202504/12, 04/12/2024, 12/13/2023, Additional history exists Pneumococcal [...] Visit Diagnoses Diagnosis Urothelial carcinoma of bladder (HCC) Other acute myocarditis Iron deficiency anemia, unspecified iron deficiency anemia type Chronic kidney disease, stage 3b (HCC) documented in this encounter Advance Directives * [...] Power of Attor philipp? No Care Teams Meat Loiner Relationship Specialty Start Date End Date Chuy Batista MD [address] [place] [address] PCP - General Family Medicine 05/31/24 documented as of this encounter
--- OUTSIDE RECORDS SUMMARY | 2024-07-30 07:16 | External Medical Summary | Summary of Care ---
Author Name Unknown Organization [facility] Address [address] [facility] [place] [address] Phone [phone] Care Team Providers Care Head Operator Sulfide Name Role Phone Chuy Batista MD Primary Care Provider +1- [phone] Reason for Visit * Reason Onset Date Comments Hospital Follow-Up Hospital foll ow up; 06/23-07/07.Would like scripts for Lidocaine Pain Relief patch 4% and methocarbamol 500 mg.Would like to discuss Fludrocortisone 50mcg dose. Hospital Follow-Up 07/24/2024 Encounter Details Date Type Department Care Team (Late st Contact Info) Description 07/24/2024 11:00 AM EST [facility] [address] [facility] [place] [address] Chuy Batista MD 226 [facility] [place] [id number] Complicated UTI (urinary tract infection)*; Devlin catheter in place; MCI (mild cognitive impairment); Adrenal insufficiency (HCC); Chronic kidney disease, stage 3b (HCC); Iron deficiency anemia, unspecified iron deficiency anemia type; Chronic bilateral low back pain without sciatica; Benign hypertension with stage 3b chronic kidney disease (HCC); Prostate cancer (HCC); Hospital discharge follow-up; Primary adrenocortical insufficiency (HCC) Allergies Active Allergy Reactions Criticality Noted [...] in the morning. 90 Capsule 1 11/12/19 Active [facility] Wound/Burn Dressing External GelIndications:P ressure injury of sacral region, stage 2 (HCC) Apply topically to affected area daily. Apply to pressure ulcer of buttocks. 88 mL 3 11/12/19 Active Additional Information Patient not taking.Reported on [...] hours). 30 Patch 1 07/24/20 24 Active Hydrocortisone 10 MG Oral Tablet (Cortef) TAKE 2 TABLETS BY MOUTH EVERY MORNING AND 1 TABLET IN THE AFTERNOON 05/25/20 24 024 Discontin ued(Refil l) documented as [...] (03/27/2019): basal cell carcinoma (L lower gal[place]iz /) [...] mRNA, LNP-s, No Pre serve, 2-Dose Series ([employer]) 05/30/2021,10/29/2020,10/08/2020 COVID-19, LNP-s, No Preserve , Prosper-sucrose, [...] No 12/27/2023 Does the household have a [facility] source of income? (Household - for ages [...] Sign Reading Time Taken Comments Blood Pressure 112/56 07/24/2024 11:28 AM EST Pulse 79 07/24/2024 11:28 AM EST Temperature 35.5 C (95.9 F) 07/24/2024 11:[address] Respiratory Rate 16 07/24/2024 11:28 AM EST Oxygen Saturation 96% 07/24/2024 11:28 AM EST Inhaled Oxygen Concentration - - Weight - - Height 190.5 cm (6' 3") 07/24/2024 11:28 AM EST Body Mass Index - - documented in this encounter Functional Status * [...] documented in this encounter Progress Notes * Chuy Batista MD - 07/24/2024 1:38 PM EST Subjective: Branden High is a 78 year old male here today for Chief Complaint Patient presents with Hospital Follow-Up Hospital follow up; 06/23-07/07. Would like scripts for Lidocaine Pain Relief patch 4% and methocarbamol 500 mg. Would like to discuss Fludrocortisone 50mcg dose. Hospital Follow-Up Patient presents for follow-up from hospitalization and retirement facility stay. He was admitted from June 23, 2024 through July 07, 2024 at [facility] for a complicated urinary tract infection and mental status changes. He does have a chronic indwelling Devlin catheter. There were issues with hospital induced delirium as well as increased anxiety about being hospitalized. He was treated for a bacterial urinary tract infection as well as a candidal urinary tract infection. Was seen in consultation by Urology. There were concerns about leaking around the Devlin catheter. Psychiatry added Abilify and escitalopram. Patient was discharged from the hospital to [facility]. He was there from July 07, 2024 through July 21, 2024. He is now home with assistance with home health and will be getting PT and OT. He does have difficulties with ambulation and is seen in a wheelchair in the clinic today. No current fever. No delirium. Patient and believe his anxiety is significantly better. They are wondering if he continues to need treatment with the Abilify and escitalopram. Appetite and oral intake has not been great yet. He does have an appointment tomorrow with Hematology Oncology. Patient and his are not sure they could get him there as it took extreme efforts to get him into the clinic today. I texted his stock replenisher who stated that we could get some labs updated today and he could delay that visit. Past Medical History: Diagnosis Date Adrenal [...] of patient's allergies indicates: Allergen Reactions Chocolate Flavoring Agent (Non-Screening) Other Reaction(s): DIARRHEA/ Cannot take, interacts w/ [...] Ellipta 200-62.5-25 MCG/ACT Aerosol Powder Breath Activated (Qubtqrtcrjl-Iuqxgfbmokvr-Mgaurpxplz) Inhale 1 Puff by mouth every evening. [...] as needed for Pain (fever or pain). polyethylene glycol 3350 119 gram OR POWD Take 119 g by mouth once. Omeprazole 20 MG Oral Capsule Delayed Release (PriLOSEC) Take 1 Capsule by mouth in the morning. 90Capsule 1 ProAir HFA 108 (90 Base) MCG/ACT Inhalation Aerosol Solution Inhale 2 Puffs by mouth as needed. B Complex Oral Capsule Take 1 Capsule by mouth in the morning. Aspirin 81 MG Oral Tablet Delayed Release (Aspirin 81) Take 1 Tablet by mouth in the morning. B-12 1000 MCG Oral Tablet Take by mouth daily. Fludrocortisone Acetate 50 MCG OR TABS Take 1 Tablet by mouth in the morning. Magnesium Chloride 64 MG Oral Tablet Take by mouth. Magnesium Hydroxide 400 MG/5ML [...] ( Wednesday, Wednesday, Wednesday). 36 Tablet 0 Magnesium Cl-Calcium Carbonate 71.5-119 MG Oral Tablet Delayed Release Take 64 mg by mouth in the morning and 64 mg before bedtime. Hydrocortisone 10 MG Oral Tablet (Cortef) Take 20 mg in AM and 10 mg in afternoon 90 Tablet 5 ARIPiprazole 2.5 MG OR TABS Take by mouth daily. Escitalopram Oxalate 5 MG Oral Tablet (Lexapro) Take 1 Tablet by mouth in the morning. Lactobacillus Probiotic Oral Tablet Take by mouth. Mirabegron ER 25 MG Oral Tablet Extended Release 24 Hour (Myrbetriq) Take 1 Tablet by mouth in the morning. Senna 8.6 MG Oral Capsule Take by mouth. Tab-A-Kika Oral Tablet Take 1 Tablet by mouth in the morning. Vitamin B-12 1000 MCG/15ML Oral Liquid Take by mouth. Vitamin C ER 1000-100 MG Oral Tablet Extended Release Take by mouth. Nitroglycerin 0.4 MG Sublingual Tablet Sublingual (Nitrostat) Place 1 Tablet under the tongue every5 minutes as needed for Pain, Chest. Escitalopram Oxalate 5 MG Oral Tablet (Lexapro) Take 1 Tablet by mouth in the morning. 30 Tablet 5 Memantine HCl 10 MG Oral Tablet (Namenda) Take 1 tab by mouth twice per day 60 Tablet 5 Lidocaine 4 % External Patch (Aspercreme) Place 1 patch on skin over affected area daily (leave on for 12 hours). 30 Patch 1 Syringe/Needle, Disp, 25G X 1-1/2" 3 ML MISC To use with injection of hydrocortisone if needed (Patient not taking: Reported on 07/24/2024) 2 Each 5 EpiPen 2-Pedro 0.3 MG/0.3ML Injection Solution Auto-injector USE DIRECTED (Patient not taking: Reported on 07/24/2024) 1 Each 0 Ascorbic Acid 500 MG Oral Tablet Take 2 Tablets by mouth every morning. Bisacodyl 10 MG Rectal Suppository (Dulcolax) Administer 1 Suppository into the rectum in the morning. (Patient not taking: Reported on 07/24/2024) [facility] Wound/Burn Dressing External Gel Apply topically to affected area daily. Apply to pressure ulcer of buttocks. (Patient not taking: Reported on 07/24/2024) 88 mL 3 predniSONE 20 MG Oral Tablet (Deltasone) TAKE 4 TABLETS BY MOUTH EVERY MORNING WITH FOOD (Patient not taking: Reported on 07/24/2024) 120 Tablet 1 Fleet Enema 7-19 GM/118ML Rectal Enema Administer 1 Enema into the rectum as needed for Constipation. (Patient not taking: Reported on 07/24/2024) Melatonin 3 MG Oral Capsule Take 1 Capsule by mouth at bedtime as needed. (Patient not taking: Reported on 04/03/2024) Sertraline HCl 25 MG Oral Tablet (Zoloft) Take 1 Tablet by mouth at bedtime. (Patient not taking: Reported on 07/24/2024) Gummies 0.18-25 MG Oral Tablet Chewable Take by mouth. (Patient not taking: Reported on 07/24/2024) Ampicillin 500 MG Oral Capsule Take 1 Capsule by mouth in the morning and 1 Capsule at noon and 1 Capsule in the evening and 1 Capsule before bedtime. (Patient not taking: Reported on 07/24/2024) 28 Capsule 0 No current facility-administered medications for this visit. Objective: BP 112/56 | Pulse 79 | Temp 95.9 F (35.5 C) (Tympanic) | Resp 16 | Ht 6' 3" (1.905 m) | SpO2 96% | BMI 29.87 kg/m | BSA 2.4 m GEN: NAD CHEST: CTA B CV: RRR EXT: stable edema Assessment and Plan: Complicated UTI (urinary tract infection) (Primary) Devlin catheter in place -keep follow-up with Urology. Not having issues with leaking around the Devlin catheter at this time. MCI (mild cognitive impairment) -stable. His anxiety is improved and the delirium has resolved. Can stop the Abilify. Would continue the Lexapro for now but may consider discontinuing that in the future as well Adrenal insufficiency (HCC) - Hydrocortisone 10 MG Oral Tablet (Cortef); Take 20 mg in AM and 10 mg in afternoon Chronic kidney disease, stage 3b (HCC) - COMPREHENSIVE METABOLIC PANEL; Future; Expected date: 07/24/2024 Iron deficiency anemia, unspecified iron deficiency anemia type - CBC WITH WBC DIFFERENTIAL; Future; Expected date: 07/24/2024 - COMPREHENSIVE METABOLIC PANEL; Future; Expected date: 07/24/2024 - FERRITIN; Future; Expected date: 07/24/2024 - IRON SCREEN, INCLUDING TIBC; Future; Expected date: 07/24/2024 Chronic bilateral low back pain without sciatica - Lidocaine 4 % External Patch (Aspercreme); Place 1 patch on skin over affected area daily (leave on for 12 hours). Benign hypertension with stage 3b chronic kidney disease (HCC) -continue current treatments Prostate cancer (HCC) -follow-up with Urology Hospital discharge follow-up - DISCH MED RECON CUR MED LIS Other orders - Escitalopram Oxalate 5 MG Oral Tablet (Lexapro); Take 1 Tablet by mouth in the morning. - Memantine HCl 10 MG Oral Tablet (Namenda); Take 1 tab by mouth twice per day Follow-up: Return if symptoms worsen or fail to improve. | Check-out note: Cancel appt tomorrow with Avila Son today 45 min with pt and and chart review, documentation Chuy Batista MD documented in this encounter Nursing Notes * Edie Kumar MED ASSIST - 07/24/2024 11:30 AM EST The patient has been properly identified by confirmation of name and date of . Chief Complaint Patient presents with Hospital Follow-Up Hospital follow up; 06/23-07/07. Would like scripts for Lidocaine Pain Relief patch 4% and methocarbamol 500 mg. Would like to discuss Fludrocortisone 50mcg dose. documented in this encounter Plan of Treatment Upcoming Encounters Date Type Department Care Team (Late st Contact Info) Description 07/25/2024 2:45 PM EST Office Visit Hematology/Oncology [facility] [address] [facility] [place] [phone] Xavi Gramajo MD 200 [place] [address] 08/28/2024 3:00 PM EST Office Visit [facility] [address] [place] [phone] Chuy Batista MD [address] [place] [address] 09/04/2024 1:00 PM EST Procedure Only Urology, [place] [address] [place] [address] Ernesto Villareal MD [address] [place] [address] 09/14/2024 1:00 PM EST Cardiac Studies Cardiac Studies, [facility] [address] [place] [address] 10/13/2024 11:20 AM EST Office Visit Neurology [facility] [place] [address] [facility] [place] [place] [address] Ellie Duncan MD [address] [facility] [place] [place] [address] Pending Results Name Type Priority Associated Diagnoses Date /Time FERRITIN Lab Routine Iron deficiency anemia, unspecified iron deficiency anemia type 07/24/2024 1:11 PM EST IRON SCREEN, INCLUDING TIBC Lab Routine Iron deficiency anemia, unspecified iron deficiency anemia type 07/24/2024 1:11 PM EST Scheduled Orders Name Type Priority Associated Diagnoses Orde r Schedule FERRITIN Lab Routine Iron deficiency anemia, unspecified iron deficiency anemia type Expected: 07/24/2024 (Approximate), Expires: 07/24/2025 IRON SCREEN, INCLUDING TIBC Lab Routine Iron deficiency anemia, unspecified iron deficiency anemia type Expected: 07/24/2024 (Approximate), Expires: 07/24/2025 Health Maintenance Due Date Last Done Comments Albumin/Creatinine Ratio 1963 DTap/Tdap Vaccines (1 - Tdap) 1964 Adult Wellness Visit 02/01/2020 01/31/2019 COVID-19 Vaccine ( season) 2024 07/22/2022, 07/22/2022, 02/11/2022, Additional history exists CKD PHOS USE SMARTSET 74779 09/11/202408/17, 09/11/2023, 07/14/2021, Additional history exists GFR 10/13/2024 04/12/2024, 10/15, 11/03/2023, Additional history exists Depression Screening 12/26/2024 12/27/2023 CKD HGB USE SMARTSET 67076 04/12/202504/12, 04/12/2024, 12/13/2023, Additional history exists Pneumococcal [...] as of this encounter Visit Diagnoses Diagnosis Complicated UTI (urinary tract infection)- Primary Urinary tract infection, site not specified Devlin catheter in place Other postprocedural status MCI (mild cognitive impairment) Mild cognitive impairment, so stated Adrenal insufficiency (HCC) Glucocorticoid deficiency Chronic kidney disease, stage 3b (HCC) Iron deficiency anemia, unspecified iron deficiency anemia type Chronic bilateral low back pain without sciatica Benign hypertension with stage 3b chronic kidney disease (HCC) Prostate cancer (HCC) Malignant neoplasm of prostate Hospital discharge follow-up Other follow-up examination Primary adrenocortical insufficiency (HCC) Glucocorticoid deficiency documented in this encounter Advance Directives * [...] Power of Attor philipp? No Care Teams Head Operator Sulfide Relationship Specialty Start Date End Date Chuy Batista MD [address] [place] [address] PCP - General Family Medicine 05/31/24 documented as of this encounter
--- OUTSIDE RECORDS SUMMARY | 2024-07-30 07:16 | External Medical Summary | Summary of Care ---
Author Name Unknown Organization [facility] Address [address] [place] [address] Phone [phone] Care Team Providers Care Property Field Adjuster Name Role Phone Arnold Willis MD Primary Care Provider +1- [phone] Reason for Visit * Reason Comments eRx-Medication Refill Encounter Details Date Type Department Care Team (Late st Contact Info) Description 07/25/2024 Refill [facility] [address] [place] [address] DecemberDeondre MD [address] [place] [phone] Gastroesophageal reflux disease, unspecified whether esophagitis present Allergies Active Allergy Reactions Criticality Noted Date [...] Take 119 g by mouth once. Active [facility] Wound/Burn Dressing External GelIndications:P ressure injury of [...] week ( Wednesday, Wednesday, Wednesday). 36 Tablet 024 Active Ampicillin 500 MG Oral Capsule Take [...] for 12 hours). 30 Patch 1 Active Omeprazole 20 MG Oral Capsule Delayed Release (PriLOSEC)Indica tions:Gastroesop hageal reflux disease, unspecified whether esophagitis present TAKE 1 CAPSULE BY MOUTH EVERY MORNING 90 Capsule 3 024 Active Omeprazole 20 MG Oral Capsule [...] No 12/27/2023 Does the household have a [facility] source [facility] income? (Household - [...] Miscellaneous Notes * Telephone Encounter - Hanna Rojas [facility] - 07/25/2024 6:31 PM EST Signed Prescriptions: Disp Refills Omeprazole 20 MG Oral Capsule Delayed Rele*90 Cap*3 Sig: TAKE 1 CAPSULE BY MOUTH EVERY MORNINGAuthorizing Provider: ARNOLD WILLIS User: HANNA ROJAS documented in this encounter Plan of Treatment Upcoming Encounters Date Type Department Care Team (Late st Contact Info) Description 08/28/2024 3:00 PM EST Office Visit [facility] [address] [place] [phone] Arnold Willis MD [address] [place] [address] 09/04/2024 1:00 PM EST Procedure Only Urology, [place] [address] [place] [address] Ernesto Villareal MD [address] [place] [address] 09/14/2024 1:00 PM EST Cardiac Studies Cardiac Studies, [facility] [address] [facility] [address] 10/13/2024 11:20 AM EST Office Visit Neurology [facility] [address] [place] [address] Ellie Duncan MD [address] [place] [id number] Health Maintenance Due Date Last Done Comments Albumin/Creatinine Ratio 1963 DTap/Tdap Vaccines (1 - Tdap) 1964 Adult Wellness Visit 02/01/2020 01/31/2019 COVID-19 Vaccine ( season) 2024 07/22/2022, 07/22/2022, 02/11/2022, Additional history exists CKD PHOS USE SMARTSET 78558 09/11/202408/17, 09/11/2023, 07/14/2021, Additional history exists Depression Screening 12/26/2024 12/27/2023 GFR 01/22/2025 07/24/2024, 03/17, 11/12/2023, Additional history exists CKD HGB USE SMARTSET 47227 07/24/202507/24, 07/24/2024, 04/12/2024, Additional history exists Pneumococcal [...] as of this encounter Visit Diagnoses Diagnosis Gastroesophageal reflux disease, unspecified whether esophagitis present documented in this encounter Advance Directives * [...] Power of Attor philipp? No Care Teams Property Field Adjuster Relationship Specialty Start Date End Date Arnold Willis MD [address] [place] [address] PCP - General Family Medicine 05/31/24 documented as of this encounter
--- OUTSIDE RECORDS SUMMARY | 2024-07-30 07:16 | External Medical Summary | Continuity Of Care Document ---
Author Name Unknown Address [address] [address] Organization [facility] () Care Team Providers Care Emergency Manager Name Role Phone DO Mallory Amy Primary Care Provider [phone] Allergies Allergy Reaction Start Date End Date [...] 3 0.1 mL 07/08 Inactiv e 2023 33848 79784 0 1 time Intrad ermal False Tubersol 5 tub. unit/0.1 mL intradermal injection solution [Tuberculin PPD] 0.1mL Intradermal 1 time For PPD 2nd Step Give 2nd Step PPD Day 1 and Read results Day 3 (schedule 7 days after 1st READ) 0.1mL 07/08 Inactiv e 2023 70469 69443 0 1 time Intrad ermal False Tubersol 5 tub. unit/0.1 mL intradermal injection solution [Tuberculin PPD] 0.1 mL Intradermal 1 time For PPD Step 1 GIVE on Day 1 and read results Day 3 0.1 mL 07/10 Inactiv e 2023 58083 57286 0 1 time Intrad ermal False Tubersol 5 tub. unit/0.1 mL intradermal injection solution [Tuberculin PPD] 0.1mL Intradermal 1 time For PPD 2nd Step Give 2nd Step PPD Day 1 and Read results Day 3 (schedule 7 days after 1st READ) 0.1mL 07/19 Inactiv e 2023 86302 19354 0 1 time Intrad ermal False Tylenol 325 mg tablet 2 tabs By Mouth Every 4 hours as needed For Pain DO NOT EXCEED 3000 MG APAP/24 Hours 2 tabs 2023 Active 2023 26153 95529 0 Every 4 hours as needed By Mouth False Tylenol 325 mg tablet 2 tabs By Mouth Every 4 hours as needed For Fever >100 DO NOT EXCEED 3000 MG APAP/24 Hours 2 tabs 2023 Active 2023 29832 29236 0 Every 4 hours as needed By Mouth False Dulcolax (bisacodyl) 10 mg rectal suppository One Suppository per rectum PRN if Milk of Magnisia ineffective. Give on day 5 of no BM 1 sup 2023 Active 2023 85229 12375 1 Daily as needed Rectal False Fleet Enema 19 gram-7 gram/118 mL Administer per rectum PRN one time if dulcolax suppository not effective. Give on day 6 of no BM 1 2023 Active 2023 67149 92721 6 Daily as needed Rectal False Milk of Magnesia 400 mg/5 mL oral suspension [Magnesium hydroxide] PRN 30ml By Mouth Daily as needed for constipation one time daily if no BM, on day 4 of no BM (PRN refer to instructions) For Constipation 30 mL 07/08 Inactiv e 2023 26468 18890 6 Daily as needed By Mouth False Nitroglycer in 0.4 mg sublingual tablet [generic] PRN 0.4 mg Sublingual Every 5 minutes as needed Every 5 min PRN x 3 doses PRN chest pain and notify provider For Chest Pain 0.4 mg 2023 Active 2023 52616 78212 5 Every 5 minutes as needed Sublin gual False Aripiprazol e 5 mg tablet [generic] 1/2 Tab By Mouth Once daily For depression 1/2 Tab 2023 Active 2023 04818 21217 1 Once daily By Mouth False Escitalopra m 5 mg tablet [generic] 1 tablet By Mouth Once daily For depression 1 tablet 2023 Active 2023 01755 49229 1 Once daily By Mouth False Probiotic (B. coagulans) 1 billion cell chewable tablet 1 tablet By Mouth Once daily For supplement 1 tablet 2023 Active 2023 73666 62561 7 Once daily By Mouth False Memantine 10 mg tablet [generic] 1 tablet By Mouth Twice daily For alzheimers 1 tablet 2023 Active 2023 83426 33226 0 Twice daily By Mouth False Lidocaine 4 % topical patch [generic] 2 patches Topical - apply in the morning and remove at night For pain 2 patches 2023 Active 2023 93321 13486 0 Twice daily Topica l False Nystatin (bulk) 1 billion unit powder [generic] apply Topically twice daily to affected skin For fungal skin infection apply 2023 Active 2023 40864 02596 6 Twice daily Topica l False Nystatin (bulk) 1 billion unit powder [generic] apply Topical Twice daily For fungal skin breakdown apply 2023 Active 2023 26732 35519 6 Twice daily Topica l False Albuterol sulfate HFA 90 mcg/actuati on aerosol inhaler [generic] 2 puffs Inhalation Every 4 hours As Needed For COPD 2 puffs 07/11 Inactiv e 2023 14598 56361 2 Every 4 hours Inhala tion False Ascorbic acid (vitamin C) 1,000 mg capsule [generic] 1 tablet By Mouth Once daily For supplement 1 tablet 2023 Active 2023 66668 83193 2 Once daily By Mouth False Epinephrine 0.1 mg/mL injection syringe [generic] 1 dose Intramuscular As Needed for For anaphylaxis 1 dose 2023 Active 2023 70189 33257 1 Intram uscula r False Magnesium 64 mg (magnesium chloride) tablet,opal yed release [generic] 1 tablet By Mouth Twice daily For supplement 1 tablet 2023 Active 2023 78724 92718 6 Twice daily By Mouth False Multivitami n tablet [generic] 1 tablet By Mouth Once daily For supplement 1 tablet 2023 Active 2023 13105 89395 4 Once daily By Mouth False Senna 8.6 mg tablet 1 tablet By Mouth Once daily For constipation 1 tablet 2023 Active 2023 97086 21031 1 Once daily By Mouth False Solifenacin 5 mg tablet [generic] 1 tablet By Mouth Once daily For pulmonary hypertension 1 tablet 2023 Active 2023 24181 19514 0 Once daily By Mouth False Aspirin 81 mg tablet,opal yed release [generic] 1 tablet By Mouth Once daily For DVT prevention 1 tablet 2023 Active 2023 65354 03389 9 Once daily By Mouth False Cholecalcif emily (vitamin D3) 1,250 mcg (50,000 unit) capsule [generic] 1 tablet By Mouth Once daily For supplement 1 tablet 07/11 Inactiv e 2023 38222 07493 6 Once daily By Mouth False Cyanocobala min (vit B-12) 1,000 mcg tablet [generic] 1 tablet By Mouth Once daily For supplement 1 tablet 2023 Active 2023 64275 08900 5 Once daily By Mouth False Ferrous sulfate 325 mg (65 mg iron) tablet [generic] 1 tablet By Mouth Once daily For supplement 1 tablet 2023 Active 2023 52143 97643 5 Once daily By Mouth False Fludrocorti sone 0.1 mg tablet [generic] 1 tablet by mouth Once daily For adrenal insufficiency 1 tablet 2023 Active 2023 77160 29593 1 Once daily By Mouth False Omeprazole 20 mg capsule,del ayed release [generic] 1 tablet By Mouth Once daily before breakfast For GERD 1 tablet 2023 Active 2023 15373 18772 1 Once daily By Mouth False Trelegy Ellipta 100 mcg-62.5 mcg-25 mcg powder for inhalation 1 inhalation Inhalation Once daily For copd 1 inhalat ion 2023 Active 2023 17592 93362 0 Once daily Inhala tion False Hydrocortis one 20 mg tablet [generic] 1 tablet By Mouth Once daily For COPD 1 tablet 07/07 Inactiv e 2023 15522 04992 1 Once daily By Mouth False Hydrocortis one 10 mg tablet [generic] 1 tablet By Mouth Once daily in the afternoon - BE AWARE HYDROCORTISON E 20MG IN THE AM, 10MG in the afternoon For COPD 1 tablet 07/14 Inactiv e 2023 35269 02416 1 Once daily By Mouth False Hydrocortis one 20 mg tablet [generic] 07/07 Inactiv e 2023 56045 38367 1 Hydrocortis one 20 mg tablet [generic] 1 tablet By Mouth Once daily For COPD - BE AWARE HYDROCORTISON E 20MG IN THE AM, 10MG in the afternoon 1 tablet 2023 Active 2023 18078 52685 1 Once daily By Mouth False Miralax 17 gram/dose oral powder 17 gram By Mouth Once daily For Constipation 17 gram 2023 Active 2023 24930 27074 0 Once daily By Mouth False Myrbetriq 25 mg tablet,exte nded release 25 mg By Mouth Once daily For Bladder Spasms 25 mg 2023 Active 2023 91108 77869 7 Once daily By Mouth False Albuterol sulfate HFA 90 mcg/actuati on aerosol inhaler [generic] 2 puffs Inhalation Every 4 hours as needed For SOB/wheezing 2 puffs 2023 Active 2023 69432 11013 2 Every 4 hours as needed Inhala tion False Vitamin D3 125 mcg (5,000 unit) tablet 5000 unit By Mouth Once daily For Supplement 5000 unit 2023 Active 2023 09386 19218 8 Once daily By Mouth False Methocarbam ol 500 mg tablet [generic] 500 mg By Mouth Twice daily As Needed For Muscle spasms/ back pain 500 mg 2023 Active 2023 81240 97665 1 Twice daily By Mouth False Hydrocortis one 10 mg tablet [generic] 1 tablet By Mouth Once daily in the afternoon - BE AWARE HYDROCORTISON E 20MG IN THE AM, 10MG in the afternoon For COPD 1 tablet 2023 Active 2023 15825 00572 1 Once daily By Mouth False Problems Code Description Start Date End Date Status A41.9 Sepsis, unspecified organism 07/07/2024 000 Active G93.41 Metabolic encephalopathy 07/07/2024 Active [...] 07/07/2024 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 clinical safety specialist [place] diseases classified elsewhere 07/07/2024 Active K21.9 [...] Temperature SpO2 Blood Sugar Pulse Respirations 122 67765 0 68.00 mm[Hg] - Sitting 101.00 mm[Hg] - Sitting 72 NI 234.60 NI 98.20 Tympanic 98.00 % 85.00/ min 18.00/min 122 02626 6 70.00 mm[Hg] - Lying Down 110.00 mm[Hg] - Lying Down 97.80 Tympanic 84.00/ min 18.00/min 32623 123 66412 1 74.00 mm[Hg] - Lying Down 116.00 mm[Hg] - Lying Down 97.40 Tympanic 74.00/ min 18.00/min 41227 123 28454 4 74.00 mm[Hg] - Sitting 116.00 mm[Hg] - Sitting 97.40 Tympanic 74.00/ min 18.00/min 02874 123 27581 4 74.00 mm[Hg] - Sitting 116.00 mm[Hg] - Sitting 97.40 Tympanic 74.00/ min 18.00/min 60282 123 45935 5 82.00 mm[Hg] - Lying Down 153.00 mm[Hg] - Lying Down 98.00 Tympanic 98.00 % 71.00/ min 20.00/min 55999 123 68586 1 72469 124 79094 6 82.00 mm[Hg] - Lying Down 153.00 mm[Hg] - Lying Down 98.00 Tympanic 71.00/ min 20.00/min 37712 124 10875 5 82.00 mm[Hg] - Sitting 153.00 mm[Hg] - Sitting 98.00 Tympanic 71.00/ min 20.00/min 124 07179 0 62.00 mm[Hg] - Sitting 113.00 mm[Hg] - Sitting 97.80 Tympanic 72.00/ min 18.00/min 124 21713 0 62.00 mm[Hg] - Sitting 113.00 mm[Hg] - Sitting 97.80 Forehead Scan 95.00 % 72.00/ min 18.00/min 124 62313 5 77.00 mm[Hg] - Sitting 145.00 mm[Hg] - Sitting 125 24167 5 66.00 mm[Hg] - Sitting 120.00 mm[Hg] - Sitting 97.10 Tympanic 78.00/ min 18.00/min 125 32540 0 68.00 mm[Hg] - Sitting 101.00 mm[Hg] - Sitting 98.20 Tympanic 85.00/ min 18.00/min 125 99425 0 78.00 mm[Hg] - Sitting 141.00 mm[Hg] - Sitting 98.30 Forehead Scan 99.00 % 76.00/ min 18.00/min 125 53572 7 68.00 mm[Hg] - Sitting 121.00 mm[Hg] - Sitting 126 67221 7 82.00 mm[Hg] - Lying Down 169.00 mm[Hg] - Lying Down 98.10 Tympanic 97.00 % 84.00/ min 16.00/min 03962 127 59977 6 75.00 mm[Hg] - Lying Down 144.00 mm[Hg] - Lying Down 98.30 Tympanic 99.00 % 58.00/ min 18.00/min 128 97001 5 71.00 mm[Hg] - Sitting 126.00 mm[Hg] - Sitting 98.20 Tympanic 99.00 % 97.00/ min 18.00/min 129 31974 0 84.00 mm[Hg] - Sitting 145.00 mm[Hg] - Sitting 98.40 Tympanic 98.00 % 82.00/ min 18.00/min 130 17393 0 87.00 mm[Hg] - Sitting 144.00 mm[Hg] - Sitting 98.40 Forehead Scan 100.0 0% 75.00/ min 18.00/min 63975 201 98979 8 98.00 Tympanic 73.00/ min 18.00/min 201 52839 9 64.00 mm[Hg] - Sitting 117.00 mm[Hg] - Sitting 201 67940 8 226.60 NI 201 36701 0 68.00 mm[Hg] - Sitting 116.00 mm[Hg] - Sitting 98.20 Forehead Scan 96.00 % 81.00/ min 18.00/min 202 15871 0 62.00 mm[Hg] - Sitting 111.00 mm[Hg] - Sitting 98.90 Tympanic 97.00 % 76.00/ min 18.00/min 203 98688 9 64.00 mm[Hg] - Sitting 118.00 mm[Hg] - Sitting 98.60 Forehead Scan 97.00 % 80.00/ min 18.00/min 203 17637 5 80.00 mm[Hg] - Sitting 170.00 mm[Hg] - Sitting 98.30 Tympanic 99.00 % 68.00/ min 18.00/min 203 64477 0 78.00 mm[Hg] - Sitting 148.00 mm[Hg] - Sitting 204 71662 9 84.00 mm[Hg] - Lying Down 163.00 mm[Hg] - Lying Down 98.30 Tympanic 99.00 % 67.00/ min 20.00/min 205 81430 4 89.00 mm[Hg] - Lying Down 161.00 mm[Hg] - Lying Down 98.40 Tympanic 96.00 % 78.00/ min 20.00/min
--- OUTSIDE RECORDS SUMMARY | 2024-07-30 07:16 | External Medical Summary | Continuity Of Care Document ---
Author Name Unknown Address [address] [address] Organization [facility] () Care Team Providers Care Thinner Sprayer Name Role Phone DO Mallory Amy Primary Care Provider [phone] Allergies Allergy Reaction Start Date End Date [...] 3 0.1 mL 07/08 Inactiv e 2023 83534 73021 0 1 time Intrad ermal False Tubersol 5 tub. unit/0.1 mL intradermal injection solution [Tuberculin PPD] 0.1mL Intradermal 1 time For PPD 2nd Step Give 2nd Step PPD Day 1 and Read results Day 3 (schedule 7 days after 1st READ) 0.1mL 07/08 Inactiv e 2023 73702 31787 0 1 time Intrad ermal False Tubersol 5 tub. unit/0.1 mL intradermal injection solution [Tuberculin PPD] 0.1 mL Intradermal 1 time For PPD Step 1 GIVE on Day 1 and read results Day 3 0.1 mL 07/10 Inactiv e 2023 06248 84678 0 1 time Intrad ermal False Tubersol 5 tub. unit/0.1 mL intradermal injection solution [Tuberculin PPD] 0.1mL Intradermal 1 time For PPD 2nd Step Give 2nd Step PPD Day 1 and Read results Day 3 (schedule 7 days after 1st READ) 0.1mL 07/19 Inactiv e 2023 82177 94655 0 1 time Intrad ermal False Tylenol 325 mg tablet 2 tabs By Mouth Every 4 hours as needed For Pain DO NOT EXCEED 3000 MG APAP/24 Hours 2 tabs 2023 Active 2023 51263 80464 0 Every 4 hours as needed By Mouth False Tylenol 325 mg tablet 2 tabs By Mouth Every 4 hours as needed For Fever >100 DO NOT EXCEED 3000 MG APAP/24 Hours 2 tabs 2023 Active 2023 66674 37605 0 Every 4 hours as needed By Mouth False Dulcolax (bisacodyl) 10 mg rectal suppository One Suppository per rectum PRN if Milk of Magnisia ineffective. Give on day 5 of no BM 1 sup 2023 Active 2023 03910 54323 1 Daily as needed Rectal False Fleet Enema 19 gram-7 gram/118 mL Administer per rectum PRN one time if dulcolax suppository not effective. Give on day 6 of no BM 1 2023 Active 2023 40610 59757 6 Daily as needed Rectal False Milk of Magnesia 400 mg/5 mL oral suspension [Magnesium hydroxide] PRN 30ml By Mouth Daily as needed for constipation one time daily if no BM, on day 4 of no BM (PRN refer to instructions) For Constipation 30 mL 07/08 Inactiv e 2023 49818 77524 6 Daily as needed By Mouth False Nitroglycer in 0.4 mg sublingual tablet [generic] PRN 0.4 mg Sublingual Every 5 minutes as needed Every 5 min PRN x 3 doses PRN chest pain and notify provider For Chest Pain 0.4 mg 2023 Active 2023 99497 49548 5 Every 5 minutes as needed Sublin gual False Aripiprazol e 5 mg tablet [generic] 1/2 Tab By Mouth Once daily For depression 1/2 Tab 2023 Active 2023 12831 15121 1 Once daily By Mouth False Escitalopra m 5 mg tablet [generic] 1 tablet By Mouth Once daily For depression 1 tablet 2023 Active 2023 57476 24845 1 Once daily By Mouth False Probiotic (B. coagulans) 1 billion cell chewable tablet 1 tablet By Mouth Once daily For supplement 1 tablet 2023 Active 2023 69979 23765 7 Once daily By Mouth False Memantine 10 mg tablet [generic] 1 tablet By Mouth Twice daily For alzheimers 1 tablet 2023 Active 2023 26416 71216 0 Twice daily By Mouth False Lidocaine 4 % topical patch [generic] 2 patches Topical - apply in the morning and remove at night For pain 2 patches 2023 Active 2023 70806 77771 0 Twice daily Topica l False Nystatin (bulk) 1 billion unit powder [generic] apply Topically twice daily to affected skin For fungal skin infection apply 2023 Active 2023 96051 98654 6 Twice daily Topica l False Nystatin (bulk) 1 billion unit powder [generic] apply Topical Twice daily For fungal skin breakdown apply 2023 Active 2023 89629 07597 6 Twice daily Topica l False Albuterol sulfate HFA 90 mcg/actuati on aerosol inhaler [generic] 2 puffs Inhalation Every 4 hours As Needed For COPD 2 puffs 07/11 Inactiv e 2023 59431 02616 2 Every 4 hours Inhala tion False Ascorbic acid (vitamin C) 1,000 mg capsule [generic] 1 tablet By Mouth Once daily For supplement 1 tablet 2023 Active 2023 36959 30658 2 Once daily By Mouth False Epinephrine 0.1 mg/mL injection syringe [generic] 1 dose Intramuscular As Needed for For anaphylaxis 1 dose 2023 Active 2023 49777 49274 1 Intram uscula r False Magnesium 64 mg (magnesium chloride) tablet,opal yed release [generic] 1 tablet By Mouth Twice daily For supplement 1 tablet 2023 Active 2023 58137 17562 6 Twice daily By Mouth False Multivitami n tablet [generic] 1 tablet By Mouth Once daily For supplement 1 tablet 2023 Active 2023 08797 23589 4 Once daily By Mouth False Senna 8.6 mg tablet 1 tablet By Mouth Once daily For constipation 1 tablet 2023 Active 2023 53233 44655 1 Once daily By Mouth False Solifenacin 5 mg tablet [generic] 1 tablet By Mouth Once daily For pulmonary hypertension 1 tablet 2023 Active 2023 89979 38967 0 Once daily By Mouth False Aspirin 81 mg tablet,opal yed release [generic] 1 tablet By Mouth Once daily For DVT prevention 1 tablet 2023 Active 2023 96259 62865 9 Once daily By Mouth False Cholecalcif emily (vitamin D3) 1,250 mcg (50,000 unit) capsule [generic] 1 tablet By Mouth Once daily For supplement 1 tablet 07/11 Inactiv e 2023 80408 60435 6 Once daily By Mouth False Cyanocobala min (vit B-12) 1,000 mcg tablet [generic] 1 tablet By Mouth Once daily For supplement 1 tablet 2023 Active 2023 59222 18999 5 Once daily By Mouth False Ferrous sulfate 325 mg (65 mg iron) tablet [generic] 1 tablet By Mouth Once daily For supplement 1 tablet 2023 Active 2023 31252 75717 5 Once daily By Mouth False Fludrocorti sone 0.1 mg tablet [generic] 1 tablet by mouth Once daily For adrenal insufficiency 1 tablet 2023 Active 2023 96991 51401 1 Once daily By Mouth False Omeprazole 20 mg capsule,del ayed release [generic] 1 tablet By Mouth Once daily before breakfast For GERD 1 tablet 2023 Active 2023 25376 00588 1 Once daily By Mouth False Trelegy Ellipta 100 mcg-62.5 mcg-25 mcg powder for inhalation 1 inhalation Inhalation Once daily For copd 1 inhalat ion 2023 Active 2023 36766 01528 0 Once daily Inhala tion False Hydrocortis one 20 mg tablet [generic] 1 tablet By Mouth Once daily For COPD 1 tablet 07/07 Inactiv e 2023 90211 56405 1 Once daily By Mouth False Hydrocortis one 10 mg tablet [generic] 1 tablet By Mouth Once daily in the afternoon - BE AWARE HYDROCORTISON E 20MG IN THE AM, 10MG in the afternoon For COPD 1 tablet 07/14 Inactiv e 2023 90421 07988 1 Once daily By Mouth False Hydrocortis one 20 mg tablet [generic] 07/07 Inactiv e 2023 86687 56031 1 Hydrocortis one 20 mg tablet [generic] 1 tablet By Mouth Once daily For COPD - BE AWARE HYDROCORTISON E 20MG IN THE AM, 10MG in the afternoon 1 tablet 2023 Active 2023 78492 65028 1 Once daily By Mouth False Miralax 17 gram/dose oral powder 17 gram By Mouth Once daily For Constipation 17 gram 2023 Active 2023 11809 36353 0 Once daily By Mouth False Myrbetriq 25 mg tablet,exte nded release 25 mg By Mouth Once daily For Bladder Spasms 25 mg 2023 Active 2023 72404 01118 7 Once daily By Mouth False Albuterol sulfate HFA 90 mcg/actuati on aerosol inhaler [generic] 2 puffs Inhalation Every 4 hours as needed For SOB/wheezing 2 puffs 2023 Active 2023 96107 28973 2 Every 4 hours as needed Inhala tion False Vitamin D3 125 mcg (5,000 unit) tablet 5000 unit By Mouth Once daily For Supplement 5000 unit 2023 Active 2023 16766 06601 8 Once daily By Mouth False Methocarbam ol 500 mg tablet [generic] 500 mg By Mouth Twice daily As Needed For Muscle spasms/ back pain 500 mg 2023 Active 2023 61040 23399 1 Twice daily By Mouth False Hydrocortis one 10 mg tablet [generic] 1 tablet By Mouth Once daily in the afternoon - BE AWARE HYDROCORTISON E 20MG IN THE AM, 10MG in the afternoon For COPD 1 tablet 2023 Active 2023 93059 31039 1 Once daily By Mouth False Nitroglycer in 0.4 mg sublingual tablet [generic] PRN 0.4 mg Sublingual Every 5 minutes as needed Every 5 min PRN x 3 doses PRN chest pain and notify provider For Chest Pain 0.4 mg 07/23 Active 2023 10405 52589 5 Every 5 minutes as needed Sublin gual False Aripiprazol e 5 mg tablet [generic] 1/2 Tab By Mouth Once daily For depression 1/2 Tab 2023 Active 2023 65336 51025 1 Once daily By Mouth False Escitalopra m 5 mg tablet [generic] 1 tablet By Mouth Once daily For depression 1 tablet 2023 Active 2023 55857 20737 1 Once daily By Mouth False Probiotic (B. coagulans) 1 billion cell chewable tablet 1 tablet By Mouth Once daily For supplement 1 tablet 2023 Active 2023 62029 88740 7 Once daily By Mouth False Memantine 10 mg tablet [generic] 1 tablet By Mouth Twice daily For alzheimers 1 tablet 2023 Active 2023 52866 43010 0 Twice daily By Mouth False Lidocaine 4 % topical patch [generic] 2 patches Topical - apply in the morning and remove at night For pain 2 patches 2023 Active 2023 94104 53245 0 Twice daily Topica l False Nystatin (bulk) 1 billion unit powder [generic] apply Topically twice daily to affected skin For fungal skin infection apply 2023 Active 2023 18630 58588 6 Twice daily Topica l False Nystatin (bulk) 1 billion unit powder [generic] apply Topical Twice daily For fungal skin breakdown apply 2023 Active 2023 76161 92298 6 Twice daily Topica l False Ascorbic acid (vitamin C) 1,000 mg capsule [generic] 1 tablet By Mouth Once daily For supplement 1 tablet 2023 Active 2023 96695 40983 2 Once daily By Mouth False Epinephrine 0.1 mg/mL injection syringe [generic] 1 dose Intramuscular As Needed for For anaphylaxis 1 dose 2023 Active 2023 29100 28203 1 Intram uscula r False Magnesium 64 mg (magnesium chloride) tablet,opal yed release [generic] 1 tablet By Mouth Twice daily For supplement 1 tablet 2023 Active 2023 57102 60390 6 Twice daily By Mouth False Multivitami n tablet [generic] 1 tablet By Mouth Once daily For supplement 1 tablet 2023 Active 2023 75433 71728 4 Once daily By Mouth False Senna 8.6 mg tablet 1 tablet By Mouth Once daily For constipation 1 tablet 2023 Active 2023 73831 19295 1 Once daily By Mouth False Solifenacin 5 mg tablet [generic] 1 tablet By Mouth Once daily For pulmonary hypertension 1 tablet 2023 Active 2023 47861 82378 0 Once daily By Mouth False Aspirin 81 mg tablet,opal yed release [generic] 1 tablet By Mouth Once daily For DVT prevention 1 tablet 2023 Active 2023 47892 25162 9 Once daily By Mouth False Cyanocobala min (vit B-12) 1,000 mcg tablet [generic] 1 tablet By Mouth Once daily For supplement 1 tablet 2023 Active 2023 12573 14691 5 Once daily By Mouth False Ferrous sulfate 325 mg (65 mg iron) tablet [generic] 1 tablet By Mouth Once daily For supplement 1 tablet 2023 Active 2023 52967 92522 5 Once daily By Mouth False Fludrocorti sone 0.1 mg tablet [generic] 1 tablet by mouth Once daily For adrenal insufficiency 1 tablet 2023 Active 2023 68056 46309 1 Once daily By Mouth False Omeprazole 20 mg capsule,del ayed release [generic] 1 tablet By Mouth Once daily before breakfast For GERD 1 tablet 2023 Active 2023 79139 93945 1 Once daily By Mouth False Trelegy Ellipta 100 mcg-62.5 mcg-25 mcg powder for inhalation 1 inhalation Inhalation Once daily For copd 1 inhalat ion 2023 Active 2023 20837 09321 0 Once daily Inhala tion False Hydrocortis one 20 mg tablet [generic] 1 tablet By Mouth Once daily For COPD - BE AWARE HYDROCORTISON E 20MG IN THE AM, 10MG in the afternoon 1 tablet 2023 Active 2023 12380 67136 1 Once daily By Mouth False Miralax 17 gram/dose oral powder 17 gram By Mouth Once daily For Constipation 17 gram 2023 Active 2023 02381 75095 0 Once daily By Mouth False Myrbetriq 25 mg tablet,exte nded release 25 mg By Mouth Once daily For Bladder Spasms 25 mg 2023 Active 2023 24533 87987 7 Once daily By Mouth False Albuterol sulfate HFA 90 mcg/actuati on aerosol inhaler [generic] 2 puffs Inhalation Every 4 hours as needed For SOB/wheezing 2 puffs 2023 Active 2023 07505 44495 2 Every 4 hours as needed Inhala tion False Vitamin D3 125 mcg (5,000 unit) tablet 5000 unit By Mouth Once daily For Supplement 5000 unit 2023 Active 2023 28024 31609 8 Once daily By Mouth False Methocarbam ol 500 mg tablet [generic] 500 mg By Mouth Twice daily As Needed For Muscle spasms/ back pain 500 mg 2023 Active 2023 78641 56006 1 Twice daily By Mouth False Hydrocortis one 10 mg tablet [generic] 1 tablet By Mouth Once daily in the afternoon - BE AWARE HYDROCORTISON E 20MG IN THE AM, 10MG in the afternoon For COPD 1 tablet 2023 Active 2023 65184 40778 1 Once daily By Mouth False Problems [...] 07/07/2024 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 engineer [place] diseases classified elsewhere 07/07/2024 Active K21.9 [...] Temperature SpO2 Blood Sugar Pulse Respirations 122 85576 0 68.00 mm[Hg] - Sitting 101.00 mm[Hg] - Sitting 72 NI 234.60 NI 98.20 Tympanic 98.00 % 85.00/ min 18.00/min 122 27230 6 70.00 mm[Hg] - Lying Down 110.00 mm[Hg] - Lying Down 97.80 Tympanic 84.00/ min 18.00/min 26147 123 73743 1 74.00 mm[Hg] - Lying Down 116.00 mm[Hg] - Lying Down 97.40 Tympanic 74.00/ min 18.00/min 28564 123 00557 4 74.00 mm[Hg] - Sitting 116.00 mm[Hg] - Sitting 97.40 Tympanic 74.00/ min 18.00/min 39934 123 47188 4 74.00 mm[Hg] - Sitting 116.00 mm[Hg] - Sitting 97.40 Tympanic 74.00/ min 18.00/min 27256 123 03241 5 82.00 mm[Hg] - Lying Down 153.00 mm[Hg] - Lying Down 98.00 Tympanic 98.00 % 71.00/ min 20.00/min 39158 123 42991 1 04888 124 75144 6 82.00 mm[Hg] - Lying Down 153.00 mm[Hg] - Lying Down 98.00 Tympanic 71.00/ min 20.00/min 43251 124 10234 5 82.00 mm[Hg] - Sitting 153.00 mm[Hg] - Sitting 98.00 Tympanic 71.00/ min 20.00/min 124 62435 0 62.00 mm[Hg] - Sitting 113.00 mm[Hg] - Sitting 97.80 Tympanic 72.00/ min 18.00/min 124 66826 0 62.00 mm[Hg] - Sitting 113.00 mm[Hg] - Sitting 97.80 Forehead Scan 95.00 % 72.00/ min 18.00/min 124 39251 5 77.00 mm[Hg] - Sitting 145.00 mm[Hg] - Sitting 125 90840 5 66.00 mm[Hg] - Sitting 120.00 mm[Hg] - Sitting 97.10 Tympanic 78.00/ min 18.00/min 125 43822 0 68.00 mm[Hg] - Sitting 101.00 mm[Hg] - Sitting 98.20 Tympanic 85.00/ min 18.00/min 125 29367 0 78.00 mm[Hg] - Sitting 141.00 mm[Hg] - Sitting 98.30 Forehead Scan 99.00 % 76.00/ min 18.00/min 125 67156 7 68.00 mm[Hg] - Sitting 121.00 mm[Hg] - Sitting 126 69070 7 82.00 mm[Hg] - Lying Down 169.00 mm[Hg] - Lying Down 98.10 Tympanic 97.00 % 84.00/ min 16.00/min 20531 127 43682 6 75.00 mm[Hg] - Lying Down 144.00 mm[Hg] - Lying Down 98.30 Tympanic 99.00 % 58.00/ min 18.00/min 128 82208 5 71.00 mm[Hg] - Sitting 126.00 mm[Hg] - Sitting 98.20 Tympanic 99.00 % 97.00/ min 18.00/min 129 99779 0 84.00 mm[Hg] - Sitting 145.00 mm[Hg] - Sitting 98.40 Tympanic 98.00 % 82.00/ min 18.00/min 130 06559 0 87.00 mm[Hg] - Sitting 144.00 mm[Hg] - Sitting 98.40 Forehead Scan 100.0 0% 75.00/ min 18.00/min 201 35316 8 98.00 Tympanic 73.00/ min 18.00/min 201 09850 9 64.00 mm[Hg] - Sitting 117.00 mm[Hg] - Sitting 201 60733 8 226.60 NI 201 90232 0 68.00 mm[Hg] - Sitting 116.00 mm[Hg] - Sitting 98.20 Forehead Scan 96.00 % 81.00/ min 18.00/min 202 09890 0 62.00 mm[Hg] - Sitting 111.00 mm[Hg] - Sitting 98.90 Tympanic 97.00 % 76.00/ min 18.00/min 203 37918 9 64.00 mm[Hg] - Sitting 118.00 mm[Hg] - Sitting 98.60 Forehead Scan 97.00 % 80.00/ min 18.00/min 203 15342 5 80.00 mm[Hg] - Sitting 170.00 mm[Hg] - Sitting 98.30 Tympanic 99.00 % 68.00/ min 18.00/min 203 41713 0 78.00 mm[Hg] - Sitting 148.00 mm[Hg] - Sitting 9 84.00 mm[Hg] - Lying Down 163.00 mm[Hg] - Lying Down 98.30 Tympanic 99.00 % 67.00/ min 20.00/min 205 70435 4 89.00 mm[Hg] - Lying Down 161.00 mm[Hg] - Lying Down 98.40 Tympanic 96.00 % 78.00/ min 20.00/min
--- OUTSIDE RECORDS SUMMARY | 2024-07-30 07:16 | External Medical Summary ---
Author Name Unknown Address Unknown Organization K01:[facility] [address] [place] [address] Laboratory Report Ordering Provider Test Date Status EVELYN STUBBS 07/24/2024 13:11:52 Final Observation Date Value Abnormality Reference (Units ) Status CK 07/24/2024 13:11:52 37 Below low normal 39- 308 (U/L) Final Performing Location [facility] [address] [place] [address]
--- OUTSIDE RECORDS SUMMARY | 2024-07-30 07:16 | External Medical Summary | Continuity Of Care Document ---
Author Name Unknown Address [address] [address] Organization [facility] () Care Team Providers Care Glass Installer Name Role Phone DO Mallory Amy Primary Care Provider [phone] Allergies Allergy Reaction Start Date End Date [...] 3 0.1 mL 07/08 Inactiv e 2023 66858 33701 0 1 time Intrad ermal False Tubersol 5 tub. unit/0.1 mL intradermal injection solution [Tuberculin PPD] 0.1mL Intradermal 1 time For PPD 2nd Step Give 2nd Step PPD Day 1 and Read results Day 3 (schedule 7 days after 1st READ) 0.1mL 07/08 Inactiv e 2023 11080 03047 0 1 time Intrad ermal False Tubersol 5 tub. unit/0.1 mL intradermal injection solution [Tuberculin PPD] 0.1 mL Intradermal 1 time For PPD Step 1 GIVE on Day 1 and read results Day 3 0.1 mL 07/10 Inactiv e 2023 53604 03090 0 1 time Intrad ermal False Tubersol 5 tub. unit/0.1 mL intradermal injection solution [Tuberculin PPD] 0.1mL Intradermal 1 time For PPD 2nd Step Give 2nd Step PPD Day 1 and Read results Day 3 (schedule 7 days after 1st READ) 0.1mL 07/19 Inactiv e 2023 14639 50061 0 1 time Intrad ermal False Tylenol 325 mg tablet 2 tabs By Mouth Every 4 hours as needed For Pain DO NOT EXCEED 3000 MG APAP/24 Hours 2 tabs 2023 Active 2023 22938 11554 0 Every 4 hours as needed By Mouth False Tylenol 325 mg tablet 2 tabs By Mouth Every 4 hours as needed For Fever >100 DO NOT EXCEED 3000 MG APAP/24 Hours 2 tabs 2023 Active 2023 48328 90721 0 Every 4 hours as needed By Mouth False Dulcolax (bisacodyl) 10 mg rectal suppository One Suppository per rectum PRN if Milk of Magnisia ineffective. Give on day 5 of no BM 1 sup 2023 Active 2023 06380 67708 1 Daily as needed Rectal False Fleet Enema 19 gram-7 gram/118 mL Administer per rectum PRN one time if dulcolax suppository not effective. Give on day 6 of no BM 1 2023 Active 2023 95956 80478 6 Daily as needed Rectal False Milk of Magnesia 400 mg/5 mL oral suspension [Magnesium hydroxide] PRN 30ml By Mouth Daily as needed for constipation one time daily if no BM, on day 4 of no BM (PRN refer to instructions) For Constipation 30 mL 07/08 Inactiv e 2023 63068 22626 6 Daily as needed By Mouth False Nitroglycer in 0.4 mg sublingual tablet [generic] PRN 0.4 mg Sublingual Every 5 minutes as needed Every 5 min PRN x 3 doses PRN chest pain and notify provider For Chest Pain 0.4 mg 2023 Active 2023 72677 26841 5 Every 5 minutes as needed Sublin gual False Aripiprazol e 5 mg tablet [generic] 1/2 Tab By Mouth Once daily For depression 1/2 Tab 2023 Active 2023 66944 82787 1 Once daily By Mouth False Escitalopra m 5 mg tablet [generic] 1 tablet By Mouth Once daily For depression 1 tablet 2023 Active 2023 66999 01695 1 Once daily By Mouth False Probiotic (B. coagulans) 1 billion cell chewable tablet 1 tablet By Mouth Once daily For supplement 1 tablet 2023 Active 2023 90844 30305 7 Once daily By Mouth False Memantine 10 mg tablet [generic] 1 tablet By Mouth Twice daily For alzheimers 1 tablet 2023 Active 2023 24858 44359 0 Twice daily By Mouth False Lidocaine 4 % topical patch [generic] 2 patches Topical - apply in the morning and remove at night For pain 2 patches 2023 Active 2023 05375 41463 0 Twice daily Topica l False Nystatin (bulk) 1 billion unit powder [generic] apply Topically twice daily to affected skin For fungal skin infection apply 2023 Active 2023 27292 05029 6 Twice daily Topica l False Nystatin (bulk) 1 billion unit powder [generic] apply Topical Twice daily For fungal skin breakdown apply 2023 Active 2023 23745 27985 6 Twice daily Topica l False Albuterol sulfate HFA 90 mcg/actuati on aerosol inhaler [generic] 2 puffs Inhalation Every 4 hours As Needed For COPD 2 puffs 07/11 Inactiv e 2023 85506 66839 2 Every 4 hours Inhala tion False Ascorbic acid (vitamin C) 1,000 mg capsule [generic] 1 tablet By Mouth Once daily For supplement 1 tablet 2023 Active 2023 40527 54568 2 Once daily By Mouth False Epinephrine 0.1 mg/mL injection syringe [generic] 1 dose Intramuscular As Needed for For anaphylaxis 1 dose 2023 Active 2023 72922 33059 1 Intram uscula r False Magnesium 64 mg (magnesium chloride) tablet,opal yed release [generic] 1 tablet By Mouth Twice daily For supplement 1 tablet 2023 Active 2023 54031 00055 6 Twice daily By Mouth False Multivitami n tablet [generic] 1 tablet By Mouth Once daily For supplement 1 tablet 2023 Active 2023 76000 89832 4 Once daily By Mouth False Senna 8.6 mg tablet 1 tablet By Mouth Once daily For constipation 1 tablet 2023 Active 2023 74007 74172 1 Once daily By Mouth False Solifenacin 5 mg tablet [generic] 1 tablet By Mouth Once daily For pulmonary hypertension 1 tablet 2023 Active 2023 66935 31623 0 Once daily By Mouth False Aspirin 81 mg tablet,opal yed release [generic] 1 tablet By Mouth Once daily For DVT prevention 1 tablet 2023 Active 2023 17507 91905 9 Once daily By Mouth False Cholecalcif emily (vitamin D3) 1,250 mcg (50,000 unit) capsule [generic] 1 tablet By Mouth Once daily For supplement 1 tablet 07/11 Inactiv e 2023 32904 99262 6 Once daily By Mouth False Cyanocobala min (vit B-12) 1,000 mcg tablet [generic] 1 tablet By Mouth Once daily For supplement 1 tablet 2023 Active 2023 24165 21570 5 Once daily By Mouth False Ferrous sulfate 325 mg (65 mg iron) tablet [generic] 1 tablet By Mouth Once daily For supplement 1 tablet 2023 Active 2023 65027 40782 5 Once daily By Mouth False Fludrocorti sone 0.1 mg tablet [generic] 1 tablet by mouth Once daily For adrenal insufficiency 1 tablet 2023 Active 2023 55024 62762 1 Once daily By Mouth False Omeprazole 20 mg capsule,del ayed release [generic] 1 tablet By Mouth Once daily before breakfast For GERD 1 tablet 2023 Active 2023 25280 74577 1 Once daily By Mouth False Trelegy Ellipta 100 mcg-62.5 mcg-25 mcg powder for inhalation 1 inhalation Inhalation Once daily For copd 1 inhalat ion 2023 Active 2023 36248 79615 0 Once daily Inhala tion False Hydrocortis one 20 mg tablet [generic] 1 tablet By Mouth Once daily For COPD 1 tablet 07/07 Inactiv e 2023 96997 47251 1 Once daily By Mouth False Hydrocortis one 10 mg tablet [generic] 1 tablet By Mouth Once daily in the afternoon - BE AWARE HYDROCORTISON E 20MG IN THE AM, 10MG in the afternoon For COPD 1 tablet 07/14 Inactiv e 2023 48094 88397 1 Once daily By Mouth False Hydrocortis one 20 mg tablet [generic] 07/07 Inactiv e 2023 88444 25117 1 Hydrocortis one 20 mg tablet [generic] 1 tablet By Mouth Once daily For COPD - BE AWARE HYDROCORTISON E 20MG IN THE AM, 10MG in the afternoon 1 tablet 2023 Active 2023 36631 25247 1 Once daily By Mouth False Miralax 17 gram/dose oral powder 17 gram By Mouth Once daily For Constipation 17 gram 2023 Active 2023 83343 45062 0 Once daily By Mouth False Myrbetriq 25 mg tablet,exte nded release 25 mg By Mouth Once daily For Bladder Spasms 25 mg 2023 Active 2023 52371 04838 7 Once daily By Mouth False Albuterol sulfate HFA 90 mcg/actuati on aerosol inhaler [generic] 2 puffs Inhalation Every 4 hours as needed For SOB/wheezing 2 puffs 2023 Active 2023 97130 88496 2 Every 4 hours as needed Inhala tion False Vitamin D3 125 mcg (5,000 unit) tablet 5000 unit By Mouth Once daily For Supplement 5000 unit 2023 Active 2023 91494 68627 8 Once daily By Mouth False Methocarbam ol 500 mg tablet [generic] 500 mg By Mouth Twice daily As Needed For Muscle spasms/ back pain 500 mg 2023 Active 2023 42971 06785 1 Twice daily By Mouth False Hydrocortis one 10 mg tablet [generic] 1 tablet By Mouth Once daily in the afternoon - BE AWARE HYDROCORTISON E 20MG IN THE AM, 10MG in the afternoon For COPD 1 tablet 2023 Active 2023 17715 09540 1 Once daily By Mouth False Nitroglycer in 0.4 mg sublingual tablet [generic] PRN 0.4 mg Sublingual Every 5 minutes as needed Every 5 min PRN x 3 doses PRN chest pain and notify provider For Chest Pain 0.4 mg 07/23 Active 2023 59606 32698 5 Every 5 minutes as needed Sublin gual False Aripiprazol e 5 mg tablet [generic] 1/2 Tab By Mouth Once daily For depression 1/2 Tab 2023 Active 2023 12832 74287 1 Once daily By Mouth False Escitalopra m 5 mg tablet [generic] 1 tablet By Mouth Once daily For depression 1 tablet 2023 Active 2023 33234 56558 1 Once daily By Mouth False Probiotic (B. coagulans) 1 billion cell chewable tablet 1 tablet By Mouth Once daily For supplement 1 tablet 2023 Active 2023 66509 00443 7 Once daily By Mouth False Memantine 10 mg tablet [generic] 1 tablet By Mouth Twice daily For alzheimers 1 tablet 2023 Active 2023 05024 60952 0 Twice daily By Mouth False Lidocaine 4 % topical patch [generic] 2 patches Topical - apply in the morning and remove at night For pain 2 patches 2023 Active 2023 86248 97577 0 Twice daily Topica l False Nystatin (bulk) 1 billion unit powder [generic] apply Topically twice daily to affected skin For fungal skin infection apply 2023 Active 2023 61529 15938 6 Twice daily Topica l False Nystatin (bulk) 1 billion unit powder [generic] apply Topical Twice daily For fungal skin breakdown apply 2023 Active 2023 84641 93477 6 Twice daily Topica l False Ascorbic acid (vitamin C) 1,000 mg capsule [generic] 1 tablet By Mouth Once daily For supplement 1 tablet 2023 Active 2023 12152 22842 2 Once daily By Mouth False Epinephrine 0.1 mg/mL injection syringe [generic] 1 dose Intramuscular As Needed for For anaphylaxis 1 dose 2023 Active 2023 38651 51680 1 Intram uscula r False Magnesium 64 mg (magnesium chloride) tablet,opal yed release [generic] 1 tablet By Mouth Twice daily For supplement 1 tablet 2023 Active 2023 45105 09940 6 Twice daily By Mouth False Multivitami n tablet [generic] 1 tablet By Mouth Once daily For supplement 1 tablet 2023 Active 2023 04309 88360 4 Once daily By Mouth False Senna 8.6 mg tablet 1 tablet By Mouth Once daily For constipation 1 tablet 2023 Active 2023 73451 02258 1 Once daily By Mouth False Solifenacin 5 mg tablet [generic] 1 tablet By Mouth Once daily For pulmonary hypertension 1 tablet 2023 Active 2023 91631 07943 0 Once daily By Mouth False Aspirin 81 mg tablet,opal yed release [generic] 1 tablet By Mouth Once daily For DVT prevention 1 tablet 2023 Active 2023 67732 51882 9 Once daily By Mouth False Cyanocobala min (vit B-12) 1,000 mcg tablet [generic] 1 tablet By Mouth Once daily For supplement 1 tablet 2023 Active 2023 97146 49771 5 Once daily By Mouth False Ferrous sulfate 325 mg (65 mg iron) tablet [generic] 1 tablet By Mouth Once daily For supplement 1 tablet 2023 Active 2023 15387 42046 5 Once daily By Mouth False Fludrocorti sone 0.1 mg tablet [generic] 1 tablet by mouth Once daily For adrenal insufficiency 1 tablet 2023 Active 2023 38930 94928 1 Once daily By Mouth False Omeprazole 20 mg capsule,del ayed release [generic] 1 tablet By Mouth Once daily before breakfast For GERD 1 tablet 2023 Active 2023 64114 17750 1 Once daily By Mouth False Trelegy Ellipta 100 mcg-62.5 mcg-25 mcg powder for inhalation 1 inhalation Inhalation Once daily For copd 1 inhalat ion 2023 Active 2023 28408 97512 0 Once daily Inhala tion False Hydrocortis one 20 mg tablet [generic] 1 tablet By Mouth Once daily For COPD - BE AWARE HYDROCORTISON E 20MG IN THE AM, 10MG in the afternoon 1 tablet 2023 Active 2023 24595 93870 1 Once daily By Mouth False Miralax 17 gram/dose oral powder 17 gram By Mouth Once daily For Constipation 17 gram 2023 Active 2023 68748 30214 0 Once daily By Mouth False Myrbetriq 25 mg tablet,exte nded release 25 mg By Mouth Once daily For Bladder Spasms 25 mg 2023 Active 2023 34302 99182 7 Once daily By Mouth False Albuterol sulfate HFA 90 mcg/actuati on aerosol inhaler [generic] 2 puffs Inhalation Every 4 hours as needed For SOB/wheezing 2 puffs 2023 Active 2023 81823 05983 2 Every 4 hours as needed Inhala tion False Vitamin D3 125 mcg (5,000 unit) tablet 5000 unit By Mouth Once daily For Supplement 5000 unit 2023 Active 2023 73228 81872 8 Once daily By Mouth False Methocarbam ol 500 mg tablet [generic] 500 mg By Mouth Twice daily As Needed For Muscle spasms/ back pain 500 mg 2023 Active 2023 41745 11189 1 Twice daily By Mouth False Hydrocortis one 10 mg tablet [generic] 1 tablet By Mouth Once daily in the afternoon - BE AWARE HYDROCORTISON E 20MG IN THE AM, 10MG in the afternoon For COPD 1 tablet 2023 Active 2023 66460 46089 1 Once daily By Mouth False Problems [...] 07/07/2024 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 spot remover [place] diseases classified elsewhere 07/07/2024 Active K21.9 [...] Temperature SpO2 Blood Sugar Pulse Respirations 122 84634 0 68.00 mm[Hg] - Sitting 101.00 mm[Hg] - Sitting 72 NI 234.60 NI 98.20 Tympanic 98.00 % 85.00/ min 18.00/min 122 07276 6 70.00 mm[Hg] - Lying Down 110.00 mm[Hg] - Lying Down 97.80 Tympanic 84.00/ min 18.00/min 70077 123 80573 1 74.00 mm[Hg] - Lying Down 116.00 mm[Hg] - Lying Down 97.40 Tympanic 74.00/ min 18.00/min 27100 123 22970 4 74.00 mm[Hg] - Sitting 116.00 mm[Hg] - Sitting 97.40 Tympanic 74.00/ min 18.00/min 19554 123 90986 4 74.00 mm[Hg] - Sitting 116.00 mm[Hg] - Sitting 97.40 Tympanic 74.00/ min 18.00/min 29161 123 30515 5 82.00 mm[Hg] - Lying Down 153.00 mm[Hg] - Lying Down 98.00 Tympanic 98.00 % 71.00/ min 20.00/min 16099 123 07399 1 00711 124 27775 6 82.00 mm[Hg] - Lying Down 153.00 mm[Hg] - Lying Down 98.00 Tympanic 71.00/ min 20.00/min 99105 124 01791 5 82.00 mm[Hg] - Sitting 153.00 mm[Hg] - Sitting 98.00 Tympanic 71.00/ min 20.00/min 124 82543 0 62.00 mm[Hg] - Sitting 113.00 mm[Hg] - Sitting 97.80 Tympanic 72.00/ min 18.00/min 124 38612 0 62.00 mm[Hg] - Sitting 113.00 mm[Hg] - Sitting 97.80 Forehead Scan 95.00 % 72.00/ min 18.00/min 124 09970 5 77.00 mm[Hg] - Sitting 145.00 mm[Hg] - Sitting 125 75347 5 66.00 mm[Hg] - Sitting 120.00 mm[Hg] - Sitting 97.10 Tympanic 78.00/ min 18.00/min 125 45844 0 68.00 mm[Hg] - Sitting 101.00 mm[Hg] - Sitting 98.20 Tympanic 85.00/ min 18.00/min 125 49391 0 78.00 mm[Hg] - Sitting 141.00 mm[Hg] - Sitting 98.30 Forehead Scan 99.00 % 76.00/ min 18.00/min 125 81000 7 68.00 mm[Hg] - Sitting 121.00 mm[Hg] - Sitting 126 68850 7 82.00 mm[Hg] - Lying Down 169.00 mm[Hg] - Lying Down 98.10 Tympanic 97.00 % 84.00/ min 16.00/min 28648 127 18639 6 75.00 mm[Hg] - Lying Down 144.00 mm[Hg] - Lying Down 98.30 Tympanic 99.00 % 58.00/ min 18.00/min 128 22535 5 71.00 mm[Hg] - Sitting 126.00 mm[Hg] - Sitting 98.20 Tympanic 99.00 % 97.00/ min 18.00/min 129 22059 0 84.00 mm[Hg] - Sitting 145.00 mm[Hg] - Sitting 98.40 Tympanic 98.00 % 82.00/ min 18.00/min 130 17613 0 87.00 mm[Hg] - Sitting 144.00 mm[Hg] - Sitting 98.40 Forehead Scan 100.0 0% 75.00/ min 18.00/min 201 27570 8 98.00 Tympanic 73.00/ min 18.00/min 201 93492 9 64.00 mm[Hg] - Sitting 117.00 mm[Hg] - Sitting 201 61080 8 226.60 NI 201 83938 0 68.00 mm[Hg] - Sitting 116.00 mm[Hg] - Sitting 98.20 Forehead Scan 96.00 % 81.00/ min 18.00/min 202 32246 0 62.00 mm[Hg] - Sitting 111.00 mm[Hg] - Sitting 98.90 Tympanic 97.00 % 76.00/ min 18.00/min 203 31501 9 64.00 mm[Hg] - Sitting 118.00 mm[Hg] - Sitting 98.60 Forehead Scan 97.00 % 80.00/ min 18.00/min 203 99091 5 80.00 mm[Hg] - Sitting 170.00 mm[Hg] - Sitting 98.30 Tympanic 99.00 % 68.00/ min 18.00/min 203 21946 0 78.00 mm[Hg] - Sitting 148.00 mm[Hg] - Sitting 9 84.00 mm[Hg] - Lying Down 163.00 mm[Hg] - Lying Down 98.30 Tympanic 99.00 % 67.00/ min 20.00/min 205 78625 4 89.00 mm[Hg] - Lying Down 161.00 mm[Hg] - Lying Down 98.40 Tympanic 96.00 % 78.00/ min 20.00/min
--- OUTSIDE RECORDS SUMMARY | 2024-07-30 07:17 | External Medical Summary | Continuity Of Care Document ---
Author Name Unknown Address [address] [address] Organization [facility] () Care Team Providers Care Media Reconciliation Specialist Name Role Phone DO Mallory Amy Primary Care Provider [phone] Allergies Allergy Reaction Start Date End Date [...] 3 0.1 mL 07/08 Inactiv e 2023 54174 27222 0 1 time Intrad ermal False Tubersol 5 tub. unit/0.1 mL intradermal injection solution [Tuberculin PPD] 0.1mL Intradermal 1 time For PPD 2nd Step Give 2nd Step PPD Day 1 and Read results Day 3 (schedule 7 days after 1st READ) 0.1mL 07/08 Inactiv e 2023 03672 28315 0 1 time Intrad ermal False Tubersol 5 tub. unit/0.1 mL intradermal injection solution [Tuberculin PPD] 0.1 mL Intradermal 1 time For PPD Step 1 GIVE on Day 1 and read results Day 3 0.1 mL 07/10 Inactiv e 2023 64258 59696 0 1 time Intrad ermal False Tubersol 5 tub. unit/0.1 mL intradermal injection solution [Tuberculin PPD] 0.1mL Intradermal 1 time For PPD 2nd Step Give 2nd Step PPD Day 1 and Read results Day 3 (schedule 7 days after 1st READ) 0.1mL 07/19 Active 2023 93095 85343 0 1 time Intrad ermal False Tylenol 325 mg tablet 2 tabs By Mouth Every 4 hours as needed For Pain DO NOT EXCEED 3000 MG APAP/24 Hours 2 tabs 2023 Active 2023 45412 96055 0 Every 4 hours as needed By Mouth False Tylenol 325 mg tablet 2 tabs By Mouth Every 4 hours as needed For Fever >100 DO NOT EXCEED 3000 MG APAP/24 Hours 2 tabs 2023 Active 2023 72853 21320 0 Every 4 hours as needed By Mouth False Dulcolax (bisacodyl) 10 mg rectal suppository One Suppository per rectum PRN if Milk of Magnisia ineffective. Give on day 5 of no BM 1 sup 2023 Active 2023 05368 40807 1 Daily as needed Rectal False Fleet Enema 19 gram-7 gram/118 mL Administer per rectum PRN one time if dulcolax suppository not effective. Give on day 6 of no BM 1 2023 Active 2023 41550 64892 6 Daily as needed Rectal False Milk of Magnesia 400 mg/5 mL oral suspension [Magnesium hydroxide] PRN 30ml By Mouth Daily as needed for constipation one time daily if no BM, on day 4 of no BM (PRN refer to instructions) For Constipation 30 mL 07/08 Inactiv e 2023 60880 28949 6 Daily as needed By Mouth False Nitroglycer in 0.4 mg sublingual tablet [generic] PRN 0.4 mg Sublingual Every 5 minutes as needed Every 5 min PRN x 3 doses PRN chest pain and notify provider For Chest Pain 0.4 mg 2023 Active 2023 63445 13495 5 Every 5 minutes as needed Sublin gual False Aripiprazol e 5 mg tablet [generic] 1/2 Tab By Mouth Once daily For depression 1/2 Tab 2023 Active 2023 25494 09543 1 Once daily By Mouth False Escitalopra m 5 mg tablet [generic] 1 tablet By Mouth Once daily For depression 1 tablet 2023 Active 2023 91578 99523 1 Once daily By Mouth False Probiotic (B. coagulans) 1 billion cell chewable tablet 1 tablet By Mouth Once daily For supplement 1 tablet 2023 Active 2023 51635 86754 7 Once daily By Mouth False Memantine 10 mg tablet [generic] 1 tablet By Mouth Twice daily For alzheimers 1 tablet 2023 Active 2023 55920 45621 0 Twice daily By Mouth False Lidocaine 4 % topical patch [generic] 2 patches Topical - apply in the morning and remove at night For pain 2 patches 2023 Active 2023 03987 79968 0 Twice daily Topica l False Nystatin (bulk) 1 billion unit powder [generic] apply Topically twice daily to affected skin For fungal skin infection apply 2023 Active 2023 63436 40938 6 Twice daily Topica l False Nystatin (bulk) 1 billion unit powder [generic] apply Topical Twice daily For fungal skin breakdown apply 2023 Active 2023 52464 10710 6 Twice daily Topica l False Albuterol sulfate HFA 90 mcg/actuati on aerosol inhaler [generic] 2 puffs Inhalation Every 4 hours As Needed For COPD 2 puffs 07/11 Inactiv e 2023 00095 59406 2 Every 4 hours Inhala tion False Ascorbic acid (vitamin C) 1,000 mg capsule [generic] 1 tablet By Mouth Once daily For supplement 1 tablet 2023 Active 2023 25006 02523 2 Once daily By Mouth False Epinephrine 0.1 mg/mL injection syringe [generic] 1 dose Intramuscular As Needed for For anaphylaxis 1 dose 2023 Active 2023 22365 95481 1 Intram uscula r False Magnesium 64 mg (magnesium chloride) tablet,opal yed release [generic] 1 tablet By Mouth Twice daily For supplement 1 tablet 2023 Active 2023 29262 09187 6 Twice daily By Mouth False Multivitami n tablet [generic] 1 tablet By Mouth Once daily For supplement 1 tablet 2023 Active 2023 94697 40528 4 Once daily By Mouth False Senna 8.6 mg tablet 1 tablet By Mouth Once daily For constipation 1 tablet 2023 Active 2023 54099 35199 1 Once daily By Mouth False Solifenacin 5 mg tablet [generic] 1 tablet By Mouth Once daily For pulmonary hypertension 1 tablet 2023 Active 2023 47382 39518 0 Once daily By Mouth False Aspirin 81 mg tablet,opal yed release [generic] 1 tablet By Mouth Once daily For DVT prevention 1 tablet 2023 Active 2023 87432 43096 9 Once daily By Mouth False Cholecalcif emily (vitamin D3) 1,250 mcg (50,000 unit) capsule [generic] 1 tablet By Mouth Once daily For supplement 1 tablet 07/11 Inactiv e 2023 43242 54104 6 Once daily By Mouth False Cyanocobala min (vit B-12) 1,000 mcg tablet [generic] 1 tablet By Mouth Once daily For supplement 1 tablet 2023 Active 2023 11614 75848 5 Once daily By Mouth False Ferrous sulfate 325 mg (65 mg iron) tablet [generic] 1 tablet By Mouth Once daily For supplement 1 tablet 2023 Active 2023 35424 35295 5 Once daily By Mouth False Fludrocorti sone 0.1 mg tablet [generic] 1 tablet by mouth Once daily For adrenal insufficiency 1 tablet 2023 Active 2023 28109 51109 1 Once daily By Mouth False Omeprazole 20 mg capsule,del ayed release [generic] 1 tablet By Mouth Once daily before breakfast For GERD 1 tablet 2023 Active 2023 63431 12988 1 Once daily By Mouth False Trelegy Ellipta 100 mcg-62.5 mcg-25 mcg powder for inhalation 1 inhalation Inhalation Once daily For copd 1 inhalat ion 2023 Active 2023 91972 61196 0 Once daily Inhala tion False Hydrocortis one 20 mg tablet [generic] 1 tablet By Mouth Once daily For COPD 1 tablet 07/07 Inactiv e 2023 64840 42543 1 Once daily By Mouth False Hydrocortis one 10 mg tablet [generic] 1 tablet By Mouth Once daily in the afternoon - BE AWARE HYDROCORTISON E 20MG IN THE AM, 10MG in the afternoon For COPD 1 tablet 07/14 Inactiv e 2023 88906 48134 1 Once daily By Mouth False Hydrocortis one 20 mg tablet [generic] 07/07 Inactiv e 2023 68564 44194 1 Hydrocortis one 20 mg tablet [generic] 1 tablet By Mouth Once daily For COPD - BE AWARE HYDROCORTISON E 20MG IN THE AM, 10MG in the afternoon 1 tablet 2023 Active 2023 42834 69845 1 Once daily By Mouth False Miralax 17 gram/dose oral powder 17 gram By Mouth Once daily For Constipation 17 gram 2023 Active 2023 65362 70365 0 Once daily By Mouth False Myrbetriq 25 mg tablet,exte nded release 25 mg By Mouth Once daily For Bladder Spasms 25 mg 2023 Active 2023 70179 14937 7 Once daily By Mouth False Albuterol sulfate HFA 90 mcg/actuati on aerosol inhaler [generic] 2 puffs Inhalation Every 4 hours as needed For SOB/wheezing 2 puffs 2023 Active 2023 79275 25145 2 Every 4 hours as needed Inhala tion False Vitamin D3 125 mcg (5,000 unit) tablet 5000 unit By Mouth Once daily For Supplement 5000 unit 2023 Active 2023 16989 96941 8 Once daily By Mouth False Methocarbam ol 500 mg tablet [generic] 500 mg By Mouth Twice daily As Needed For Muscle spasms/ back pain 500 mg 2023 Active 2023 07883 94455 1 Twice daily By Mouth False Hydrocortis one 10 mg tablet [generic] 1 tablet By Mouth Once daily in the afternoon - BE AWARE HYDROCORTISON E 20MG IN THE AM, 10MG in the afternoon For COPD 1 tablet 2023 Active 2023 16068 11237 1 Once daily By Mouth False Problems [...] 07/07/2024 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 chronometer assembler and adjuster [place] diseases classified elsewhere 07/07/2024 Active K21.9 [...] Temperature SpO2 Blood Sugar Pulse Respirations 122 26058 0 68.00 mm[Hg] - Sitting 101.00 mm[Hg] - Sitting 72 NI 234.60 NI 98.20 Tympanic 98.00 % 85.00/ min 18.00/min 122 43453 6 70.00 mm[Hg] - Lying Down 110.00 mm[Hg] - Lying Down 97.80 Tympanic 84.00/ min 18.00/min 94449 123 14636 1 74.00 mm[Hg] - Lying Down 116.00 mm[Hg] - Lying Down 97.40 Tympanic 74.00/ min 18.00/min 69658 123 59582 4 74.00 mm[Hg] - Sitting 116.00 mm[Hg] - Sitting 97.40 Tympanic 74.00/ min 18.00/min 88975 123 45530 4 74.00 mm[Hg] - Sitting 116.00 mm[Hg] - Sitting 97.40 Tympanic 74.00/ min 18.00/min 86410 123 09137 5 82.00 mm[Hg] - Lying Down 153.00 mm[Hg] - Lying Down 98.00 Tympanic 98.00 % 71.00/ min 20.00/min 01322 123 03713 1 94931 124 93596 6 82.00 mm[Hg] - Lying Down 153.00 mm[Hg] - Lying Down 98.00 Tympanic 71.00/ min 20.00/min 52485 124 16659 5 82.00 mm[Hg] - Sitting 153.00 mm[Hg] - Sitting 98.00 Tympanic 71.00/ min 20.00/min 124 32160 0 62.00 mm[Hg] - Sitting 113.00 mm[Hg] - Sitting 97.80 Tympanic 72.00/ min 18.00/min 124 54485 0 62.00 mm[Hg] - Sitting 113.00 mm[Hg] - Sitting 97.80 Forehead Scan 95.00 % 72.00/ min 18.00/min 124 87294 5 77.00 mm[Hg] - Sitting 145.00 mm[Hg] - Sitting 125 50155 5 66.00 mm[Hg] - Sitting 120.00 mm[Hg] - Sitting 97.10 Tympanic 78.00/ min 18.00/min 125 51724 0 68.00 mm[Hg] - Sitting 101.00 mm[Hg] - Sitting 98.20 Tympanic 85.00/ min 18.00/min 125 92275 0 78.00 mm[Hg] - Sitting 141.00 mm[Hg] - Sitting 98.30 Forehead Scan 99.00 % 76.00/ min 18.00/min 125 31858 7 68.00 mm[Hg] - Sitting 121.00 mm[Hg] - Sitting 126 26936 7 82.00 mm[Hg] - Lying Down 169.00 mm[Hg] - Lying Down 98.10 Tympanic 97.00 % 84.00/ min 16.00/min 127 34941 6 75.00 mm[Hg] - Lying Down 144.00 mm[Hg] - Lying Down 98.30 Tympanic 99.00 % 58.00/ min 18.00/min 128 85975 5 71.00 mm[Hg] - Sitting 126.00 mm[Hg] - Sitting 98.20 Tympanic 99.00 % 97.00/ min 18.00/min 129 64301 0 84.00 mm[Hg] - Sitting 145.00 mm[Hg] - Sitting 98.40 Tympanic 98.00 % 82.00/ min 18.00/min 130 36511 0 87.00 mm[Hg] - Sitting 144.00 mm[Hg] - Sitting 98.40 Forehead Scan 100.0 0% 75.00/ min 18.00/min 201 77186 8 98.00 Tympanic 73.00/ min 18.00/min 201 06581 9 64.00 mm[Hg] - Sitting 117.00 mm[Hg] - Sitting 201 31311 8 226.60 NI 201 70099 0 68.00 mm[Hg] - Sitting 116.00 mm[Hg] - Sitting 98.20 Forehead Scan 96.00 % 81.00/ min 18.00/min 202 27322 0 62.00 mm[Hg] - Sitting 111.00 mm[Hg] - Sitting 98.90 Tympanic 97.00 % 76.00/ min 18.00/min
--- OUTSIDE RECORDS SUMMARY | 2024-07-30 07:17 | External Medical Summary | Continuity Of Care Document ---
Author Name Unknown Address [address] [address] [facility] () Care Team Providers Care Export Clerk Name Role Phone DO Mallory Amy Primary Care Provider [phone] Allergies Allergy Reaction Start Date End Date [...] 3 0.1 mL 07/08 Inactiv e 2023 12263 94122 0 1 time Intrad ermal False Tubersol 5 tub. unit/0.1 mL intradermal injection solution [Tuberculin PPD] 0.1mL Intradermal 1 time For PPD 2nd Step Give 2nd Step PPD Day 1 and Read results Day 3 (schedule 7 days after 1st READ) 0.1mL 07/08 Inactiv e 2023 80171 89833 0 1 time Intrad ermal False Tubersol 5 tub. unit/0.1 mL intradermal injection solution [Tuberculin PPD] 0.1 mL Intradermal 1 time For PPD Step 1 GIVE on Day 1 and read results Day 3 0.1 mL 07/10 Inactiv e 2023 72219 73793 0 1 time Intrad ermal False Tubersol 5 tub. unit/0.1 mL intradermal injection solution [Tuberculin PPD] 0.1mL Intradermal 1 time For PPD 2nd Step Give 2nd Step PPD Day 1 and Read results Day 3 (schedule 7 days after 1st READ) 0.1mL 07/19 Active 2023 47927 17708 0 1 time Intrad ermal False Tylenol 325 mg tablet 2 tabs By Mouth Every 4 hours as needed For Pain DO NOT EXCEED 3000 MG APAP/24 Hours 2 tabs 2023 Active 2023 09157 69231 0 Every 4 hours as needed By Mouth False Tylenol 325 mg tablet 2 tabs By Mouth Every 4 hours as needed For Fever >100 DO NOT EXCEED 3000 MG APAP/24 Hours 2 tabs 2023 Active 2023 17340 08710 0 Every 4 hours as needed By Mouth False Dulcolax (bisacodyl) 10 mg rectal suppository One Suppository per rectum PRN if Milk of Magnisia ineffective. Give on day 5 of no BM 1 sup 2023 Active 2023 35141 33997 1 Daily as needed Rectal False Fleet Enema 19 gram-7 gram/118 mL Administer per rectum PRN one time if dulcolax suppository not effective. Give on day 6 of no BM 1 2023 Active 2023 04591 39830 6 Daily as needed Rectal False Milk of Magnesia 400 mg/5 mL oral suspension [Magnesium hydroxide] PRN 30ml By Mouth Daily as needed for constipation one time daily if no BM, on day 4 of no BM (PRN refer to instructions) For Constipation 30 mL 07/08 Inactiv e 2023 87040 57826 6 Daily as needed By Mouth False Nitroglycer in 0.4 mg sublingual tablet [generic] PRN 0.4 mg Sublingual Every 5 minutes as needed Every 5 min PRN x 3 doses PRN chest pain and notify provider For Chest Pain 0.4 mg 2023 Active 2023 34463 33018 5 Every 5 minutes as needed Sublin gual False Aripiprazol e 5 mg tablet [generic] 1/2 Tab By Mouth Once daily For depression 1/2 Tab 2023 Active 2023 01844 77736 1 Once daily By Mouth False Escitalopra m 5 mg tablet [generic] 1 tablet By Mouth Once daily For depression 1 tablet 2023 Active 2023 87814 15881 1 Once daily By Mouth False Probiotic (B. coagulans) 1 billion cell chewable tablet 1 tablet By Mouth Once daily For supplement 1 tablet 2023 Active 2023 47413 97473 7 Once daily By Mouth False Memantine 10 mg tablet [generic] 1 tablet By Mouth Twice daily For alzheimers 1 tablet 2023 Active 2023 60643 81644 0 Twice daily By Mouth False Lidocaine 4 % topical patch [generic] 2 patches Topical - apply in the morning and remove at night For pain 2 patches 2023 Active 2023 51445 71971 0 Twice daily Topica l False Nystatin (bulk) 1 billion unit powder [generic] apply Topically twice daily to affected skin For fungal skin infection apply 2023 Active 2023 04877 39366 6 Twice daily Topica l False Nystatin (bulk) 1 billion unit powder [generic] apply Topical Twice daily For fungal skin breakdown apply 2023 Active 2023 06754 45886 6 Twice daily Topica l False Albuterol sulfate HFA 90 mcg/actuati on aerosol inhaler [generic] 2 puffs Inhalation Every 4 hours As Needed For COPD 2 puffs 07/11 Inactiv e 2023 83636 31915 2 Every 4 hours Inhala tion False Ascorbic acid (vitamin C) 1,000 mg capsule [generic] 1 tablet By Mouth Once daily For supplement 1 tablet 2023 Active 2023 78108 78676 2 Once daily By Mouth False Epinephrine 0.1 mg/mL injection syringe [generic] 1 dose Intramuscular As Needed for For anaphylaxis 1 dose 2023 Active 2023 26836 76580 1 Intram uscula r False Magnesium 64 mg (magnesium chloride) tablet,opal yed release [generic] 1 tablet By Mouth Twice daily For supplement 1 tablet 2023 Active 2023 96668 54731 6 Twice daily By Mouth False Multivitami n tablet [generic] 1 tablet By Mouth Once daily For supplement 1 tablet 2023 Active 2023 71105 41175 4 Once daily By Mouth False Senna 8.6 mg tablet 1 tablet By Mouth Once daily For constipation 1 tablet 2023 Active 2023 61810 97495 1 Once daily By Mouth False Solifenacin 5 mg tablet [generic] 1 tablet By Mouth Once daily For pulmonary hypertension 1 tablet 2023 Active 2023 29693 48878 0 Once daily By Mouth False Aspirin 81 mg tablet,opal yed release [generic] 1 tablet By Mouth Once daily For DVT prevention 1 tablet 2023 Active 2023 86092 32038 9 Once daily By Mouth False Cholecalcif emily (vitamin D3) 1,250 mcg (50,000 unit) capsule [generic] 1 tablet By Mouth Once daily For supplement 1 tablet 07/11 Inactiv e 2023 26731 48685 6 Once daily By Mouth False Cyanocobala min (vit B-12) 1,000 mcg tablet [generic] 1 tablet By Mouth Once daily For supplement 1 tablet 2023 Active 2023 95845 23152 5 Once daily By Mouth False Ferrous sulfate 325 mg (65 mg iron) tablet [generic] 1 tablet By Mouth Once daily For supplement 1 tablet 2023 Active 2023 08538 90248 5 Once daily By Mouth False Fludrocorti sone 0.1 mg tablet [generic] 1 tablet by mouth Once daily For adrenal insufficiency 1 tablet 2023 Active 2023 29329 56112 1 Once daily By Mouth False Omeprazole 20 mg capsule,del ayed release [generic] 1 tablet By Mouth Once daily before breakfast For GERD 1 tablet 2023 Active 2023 19062 65233 1 Once daily By Mouth False Trelegy Ellipta 100 mcg-62.5 mcg-25 mcg powder for inhalation 1 inhalation Inhalation Once daily For copd 1 inhalat ion 2023 Active 2023 43512 14211 0 Once daily Inhala tion False Hydrocortis one 20 mg tablet [generic] 1 tablet By Mouth Once daily For COPD 1 tablet 07/07 Inactiv e 2023 73509 84269 1 Once daily By Mouth False Hydrocortis one 10 mg tablet [generic] 1 tablet By Mouth Once daily in the afternoon - BE AWARE HYDROCORTISON E 20MG IN THE AM, 10MG in the afternoon For COPD 1 tablet 07/14 Inactiv e 2023 40261 73506 1 Once daily By Mouth False Hydrocortis one 20 mg tablet [generic] 07/07 Inactiv e 2023 53669 13525 1 Hydrocortis one 20 mg tablet [generic] 1 tablet By Mouth Once daily For COPD - BE AWARE HYDROCORTISON E 20MG IN THE AM, 10MG in the afternoon 1 tablet 2023 Active 2023 42276 00497 1 Once daily By Mouth False Miralax 17 gram/dose oral powder 17 gram By Mouth Once daily For Constipation 17 gram 2023 Active 2023 22516 51331 0 Once daily By Mouth False Myrbetriq 25 mg tablet,exte nded release 25 mg By Mouth Once daily For Bladder Spasms 25 mg 2023 Active 2023 04682 09226 7 Once daily By Mouth False Albuterol sulfate HFA 90 mcg/actuati on aerosol inhaler [generic] 2 puffs Inhalation Every 4 hours as needed For SOB/wheezing 2 puffs 2023 Active 2023 38024 27886 2 Every 4 hours as needed Inhala tion False Vitamin D3 125 mcg (5,000 unit) tablet 5000 unit By Mouth Once daily For Supplement 5000 unit 2023 Active 2023 37607 37100 8 Once daily By Mouth False Methocarbam ol 500 mg tablet [generic] 500 mg By Mouth Twice daily As Needed For Muscle spasms/ back pain 500 mg 2023 Active 2023 63355 52590 1 Twice daily By Mouth False Hydrocortis one 10 mg tablet [generic] 1 tablet By Mouth Once daily in the afternoon - BE AWARE HYDROCORTISON E 20MG IN THE AM, 10MG in the afternoon For COPD 1 tablet 2023 Active 2023 43978 72064 1 Once daily By Mouth False Problems [...] 07/07/2024 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 asbestos surveyor [place] diseases classified elsewhere 07/07/2024 Active K21.9 [...] Temperature SpO2 Blood Sugar Pulse Respirations 122 91026 0 68.00 mm[Hg] - Sitting 101.00 mm[Hg] - Sitting 72 NI 234.60 NI 98.20 Tympanic 98.00 % 85.00/ min 18.00/min 122 49105 6 70.00 mm[Hg] - Lying Down 110.00 mm[Hg] - Lying Down 97.80 Tympanic 84.00/ min 18.00/min 61993 123 53569 1 74.00 mm[Hg] - Lying Down 116.00 mm[Hg] - Lying Down 97.40 Tympanic 74.00/ min 18.00/min 69541 123 81568 4 74.00 mm[Hg] - Sitting 116.00 mm[Hg] - Sitting 97.40 Tympanic 74.00/ min 18.00/min 02875 123 12540 4 74.00 mm[Hg] - Sitting 116.00 mm[Hg] - Sitting 97.40 Tympanic 74.00/ min 18.00/min 41870 123 31890 5 82.00 mm[Hg] - Lying Down 153.00 mm[Hg] - Lying Down 98.00 Tympanic 98.00 % 71.00/ min 20.00/min 28285 123 31125 1 98945 124 01111 6 82.00 mm[Hg] - Lying Down 153.00 mm[Hg] - Lying Down 98.00 Tympanic 71.00/ min 20.00/min 33137 124 34705 5 82.00 mm[Hg] - Sitting 153.00 mm[Hg] - Sitting 98.00 Tympanic 71.00/ min 20.00/min 124 22615 0 62.00 mm[Hg] - Sitting 113.00 mm[Hg] - Sitting 97.80 Tympanic 72.00/ min 18.00/min 124 34941 0 62.00 mm[Hg] - Sitting 113.00 mm[Hg] - Sitting 97.80 Forehead Scan 95.00 % 72.00/ min 18.00/min 124 87403 5 77.00 mm[Hg] - Sitting 145.00 mm[Hg] - Sitting 125 31923 5 66.00 mm[Hg] - Sitting 120.00 mm[Hg] - Sitting 97.10 Tympanic 78.00/ min 18.00/min 125 47195 0 68.00 mm[Hg] - Sitting 101.00 mm[Hg] - Sitting 98.20 Tympanic 85.00/ min 18.00/min 125 32567 0 78.00 mm[Hg] - Sitting 141.00 mm[Hg] - Sitting 98.30 Forehead Scan 99.00 % 76.00/ min 18.00/min 125 86832 7 68.00 mm[Hg] - Sitting 121.00 mm[Hg] - Sitting 126 56469 7 82.00 mm[Hg] - Lying Down 169.00 mm[Hg] - Lying Down 98.10 Tympanic 97.00 % 84.00/ min 16.00/min 37430 127 04136 6 75.00 mm[Hg] - Lying Down 144.00 mm[Hg] - Lying Down 98.30 Tympanic 99.00 % 58.00/ min 18.00/min 128 44214 5 71.00 mm[Hg] - Sitting 126.00 mm[Hg] - Sitting 98.20 Tympanic 99.00 % 97.00/ min 18.00/min 129 85757 0 84.00 mm[Hg] - Sitting 145.00 mm[Hg] - Sitting 98.40 Tympanic 98.00 % 82.00/ min 18.00/min 130 96887 0 87.00 mm[Hg] - Sitting 144.00 mm[Hg] - Sitting 98.40 Forehead Scan 100.0 0% 75.00/ min 18.00/min
--- OUTSIDE RECORDS SUMMARY | 2024-07-30 07:17 | External Medical Summary | Continuity Of Care Document ---
Author Name Unknown Address [address] [address] Organization [facility] [place] () Care Team Providers Care Core Blower Operator Name Role Phone DO Mallory Amy Primary Care Provider [phone] Allergies Allergy Reaction Start Date End Date [...] 3 0.1 mL 07/08 Inactiv e 2023 39996 21489 0 1 time Intrad ermal False Tubersol 5 tub. unit/0.1 mL intradermal injection solution [Tuberculin PPD] 0.1mL Intradermal 1 time For PPD 2nd Step Give 2nd Step PPD Day 1 and Read results Day 3 (schedule 7 days after 1st READ) 0.1mL 07/08 Inactiv e 2023 01350 81638 0 1 time Intrad ermal False Tubersol 5 tub. unit/0.1 mL intradermal injection solution [Tuberculin PPD] 0.1 mL Intradermal 1 time For PPD Step 1 GIVE on Day 1 and read results Day 3 0.1 mL 07/10 Inactiv e 2023 28880 15805 0 1 time Intrad ermal False Tubersol 5 tub. unit/0.1 mL intradermal injection solution [Tuberculin PPD] 0.1mL Intradermal 1 time For PPD 2nd Step Give 2nd Step PPD Day 1 and Read results Day 3 (schedule 7 days after 1st READ) 0.1mL 07/19 Active 2023 21268 59583 0 1 time Intrad ermal False Tylenol 325 mg tablet 2 tabs By Mouth Every 4 hours as needed For Pain DO NOT EXCEED 3000 MG APAP/24 Hours 2 tabs 2023 Active 2023 78906 44915 0 Every 4 hours as needed By Mouth False Tylenol 325 mg tablet 2 tabs By Mouth Every 4 hours as needed For Fever >100 DO NOT EXCEED 3000 MG APAP/24 Hours 2 tabs 2023 Active 2023 30214 38002 0 Every 4 hours as needed By Mouth False Dulcolax (bisacodyl) 10 mg rectal suppository One Suppository per rectum PRN if Milk of Magnisia ineffective. Give on day 5 of no BM 1 sup 2023 Active 2023 75001 58963 1 Daily as needed Rectal False Fleet Enema 19 gram-7 gram/118 mL Administer per rectum PRN one time if dulcolax suppository not effective. Give on day 6 of no BM 1 2023 Active 2023 82365 38543 6 Daily as needed Rectal False Milk of Magnesia 400 mg/5 mL oral suspension [Magnesium hydroxide] PRN 30ml By Mouth Daily as needed for constipation one time daily if no BM, on day 4 of no BM (PRN refer to instructions) For Constipation 30 mL 07/08 Inactiv e 2023 90301 28357 6 Daily as needed By Mouth False Nitroglycer in 0.4 mg sublingual tablet [generic] PRN 0.4 mg Sublingual Every 5 minutes as needed Every 5 min PRN x 3 doses PRN chest pain and notify provider For Chest Pain 0.4 mg 2023 Active 2023 23121 12252 5 Every 5 minutes as needed Sublin gual False Aripiprazol e 5 mg tablet [generic] 1/2 Tab By Mouth Once daily For depression 1/2 Tab 2023 Active 2023 84635 63641 1 Once daily By Mouth False Escitalopra m 5 mg tablet [generic] 1 tablet By Mouth Once daily For depression 1 tablet 2023 Active 2023 20896 97052 1 Once daily By Mouth False Probiotic (B. coagulans) 1 billion cell chewable tablet 1 tablet By Mouth Once daily For supplement 1 tablet 2023 Active 2023 66644 25915 7 Once daily By Mouth False Memantine 10 mg tablet [generic] 1 tablet By Mouth Twice daily For alzheimers 1 tablet 2023 Active 2023 15665 30416 0 Twice daily By Mouth False Lidocaine 4 % topical patch [generic] 2 patches Topical - apply in the morning and remove at night For pain 2 patches 2023 Active 2023 13667 41572 0 Twice daily Topica l False Nystatin (bulk) 1 billion unit powder [generic] apply Topically twice daily to affected skin For fungal skin infection apply 2023 Active 2023 13590 10441 6 Twice daily Topica l False Nystatin (bulk) 1 billion unit powder [generic] apply Topical Twice daily For fungal skin breakdown apply 2023 Active 2023 16711 16678 6 Twice daily Topica l False Albuterol sulfate HFA 90 mcg/actuati on aerosol inhaler [generic] 2 puffs Inhalation Every 4 hours As Needed For COPD 2 puffs 07/11 Inactiv e 2023 70886 17327 2 Every 4 hours Inhala tion False Ascorbic acid (vitamin C) 1,000 mg capsule [generic] 1 tablet By Mouth Once daily For supplement 1 tablet 2023 Active 2023 92914 33127 2 Once daily By Mouth False Epinephrine 0.1 mg/mL injection syringe [generic] 1 dose Intramuscular As Needed for For anaphylaxis 1 dose 2023 Active 2023 81209 66131 1 Intram uscula r False Magnesium 64 mg (magnesium chloride) tablet,opal yed release [generic] 1 tablet By Mouth Twice daily For supplement 1 tablet 2023 Active 2023 28790 30179 6 Twice daily By Mouth False Multivitami n tablet [generic] 1 tablet By Mouth Once daily For supplement 1 tablet 2023 Active 2023 29084 71970 4 Once daily By Mouth False Senna 8.6 mg tablet 1 tablet By Mouth Once daily For constipation 1 tablet 2023 Active 2023 41420 20684 1 Once daily By Mouth False Solifenacin 5 mg tablet [generic] 1 tablet By Mouth Once daily For pulmonary hypertension 1 tablet 2023 Active 2023 34448 18236 0 Once daily By Mouth False Aspirin 81 mg tablet,opal yed release [generic] 1 tablet By Mouth Once daily For DVT prevention 1 tablet 2023 Active 2023 10161 09864 9 Once daily By Mouth False Cholecalcif emily (vitamin D3) 1,250 mcg (50,000 unit) capsule [generic] 1 tablet By Mouth Once daily For supplement 1 tablet 07/11 Inactiv e 2023 21790 69431 6 Once daily By Mouth False Cyanocobala min (vit B-12) 1,000 mcg tablet [generic] 1 tablet By Mouth Once daily For supplement 1 tablet 2023 Active 2023 75806 18689 5 Once daily By Mouth False Ferrous sulfate 325 mg (65 mg iron) tablet [generic] 1 tablet By Mouth Once daily For supplement 1 tablet 2023 Active 2023 51879 27424 5 Once daily By Mouth False Fludrocorti sone 0.1 mg tablet [generic] 1 tablet by mouth Once daily For adrenal insufficiency 1 tablet 2023 Active 2023 35789 80428 1 Once daily By Mouth False Omeprazole 20 mg capsule,del ayed release [generic] 1 tablet By Mouth Once daily before breakfast For GERD 1 tablet 2023 Active 2023 44241 97181 1 Once daily By Mouth False Trelegy Ellipta 100 mcg-62.5 mcg-25 mcg powder for inhalation 1 inhalation Inhalation Once daily For copd 1 inhalat ion 2023 Active 2023 89119 77048 0 Once daily Inhala tion False Hydrocortis one 20 mg tablet [generic] 1 tablet By Mouth Once daily For COPD 1 tablet 07/07 Inactiv e 2023 70348 29925 1 Once daily By Mouth False Hydrocortis one 10 mg tablet [generic] 1 tablet By Mouth Once daily in the afternoon - BE AWARE HYDROCORTISON E 20MG IN THE AM, 10MG in the afternoon For COPD 1 tablet 2023 Active 2023 08747 30774 1 Once daily By Mouth False Hydrocortis one 20 mg tablet [generic] 07/07 Inactiv e 2023 51991 24888 1 Hydrocortis one 20 mg tablet [generic] 1 tablet By Mouth Once daily For COPD - BE AWARE HYDROCORTISON E 20MG IN THE AM, 10MG in the afternoon 1 tablet 2023 Active 2023 37557 44461 1 Once daily By Mouth False Miralax 17 gram/dose oral powder 17 gram By Mouth Once daily For Constipation 17 gram 2023 Active 2023 29159 61169 0 Once daily By Mouth False Myrbetriq 25 mg tablet,exte nded release 25 mg By Mouth Once daily For Bladder Spasms 25 mg 2023 Active 2023 32905 93656 7 Once daily By Mouth False Albuterol sulfate HFA 90 mcg/actuati on aerosol inhaler [generic] 2 puffs Inhalation Every 4 hours as needed For SOB/wheezing 2 puffs 2023 Active 2023 84554 38259 2 Every 4 hours as needed Inhala tion False Vitamin D3 125 mcg (5,000 unit) tablet 5000 unit By Mouth Once daily For Supplement 5000 unit 2023 Active 2023 00398 07158 8 Once daily By Mouth False Methocarbam ol 500 mg tablet [generic] 500 mg By Mouth Twice daily As Needed For Muscle spasms/ back pain 500 mg 2023 Active 2023 26900 46813 1 Twice daily By Mouth False Problems Code Description [...] 07/07/2024 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 07/07/2024 Active K21.9 [...] Temperature SpO2 Blood Sugar Pulse Respirations 122 19243 0 68.00 mm[Hg] - Sitting 101.00 mm[Hg] - Sitting 72 NI 234.60 NI 98.20 Tympanic 98.00 % 85.00/ min 18.00/min 122 82270 6 70.00 mm[Hg] - Lying Down 110.00 mm[Hg] - Lying Down 97.80 Tympanic 84.00/ min 18.00/min 02823 123 12214 1 74.00 mm[Hg] - Lying Down 116.00 mm[Hg] - Lying Down 97.40 Tympanic 74.00/ min 18.00/min 22195 123 54494 4 74.00 mm[Hg] - Sitting 116.00 mm[Hg] - Sitting 97.40 Tympanic 74.00/ min 18.00/min 92618 123 16720 4 74.00 mm[Hg] - Sitting 116.00 mm[Hg] - Sitting 97.40 Tympanic 74.00/ min 18.00/min 32784 123 26199 5 82.00 mm[Hg] - Lying Down 153.00 mm[Hg] - Lying Down 98.00 Tympanic 98.00 % 71.00/ min 20.00/min 90420 123 56527 1 46652 124 00534 6 82.00 mm[Hg] - Lying Down 153.00 mm[Hg] - Lying Down 98.00 Tympanic 71.00/ min 20.00/min 78038 124 28063 5 82.00 mm[Hg] - Sitting 153.00 mm[Hg] - Sitting 98.00 Tympanic 71.00/ min 20.00/min 96880 124 17104 0 62.00 mm[Hg] - Sitting 113.00 mm[Hg] - Sitting 97.80 Tympanic 72.00/ min 18.00/min 124 19546 0 62.00 mm[Hg] - Sitting 113.00 mm[Hg] - Sitting 97.80 Forehead Scan 95.00 % 72.00/ min 18.00/min 124 85700 5 77.00 mm[Hg] - Sitting 145.00 mm[Hg] - Sitting 125 22377 5 66.00 mm[Hg] - Sitting 120.00 mm[Hg] - Sitting 97.10 Tympanic 78.00/ min 18.00/min 125 35832 0 68.00 mm[Hg] - Sitting 101.00 mm[Hg] - Sitting 98.20 Tympanic 85.00/ min 18.00/min 125 19574 0 78.00 mm[Hg] - Sitting 141.00 mm[Hg] - Sitting 98.30 Forehead Scan 99.00 % 76.00/ min 18.00/min 125 08727 7 68.00 mm[Hg] - Sitting 121.00 mm[Hg] - Sitting 126 99107 7 82.00 mm[Hg] - Lying Down 169.00 mm[Hg] - Lying Down 98.10 Tympanic 97.00 % 84.00/ min 16.00/min 127 50492 6 75.00 mm[Hg] - Lying Down 144.00 mm[Hg] - Lying Down 98.30 Tympanic 99.00 % 58.00/ min 18.00/min 128 71414 5 71.00 mm[Hg] - Sitting 126.00 mm[Hg] - Sitting 98.20 Tympanic 99.00 % 97.00/ min 18.00/min
--- OUTSIDE RECORDS SUMMARY | 2024-07-30 07:17 | External Medical Summary | Continuity Of Care Document ---
Author Name Unknown Address [address] [address] Organization [facility] [place] () Care Team Providers Care Application Architect Manager Name Role Phone DO Mallory Amy Primary Care Provider [phone] Allergies Allergy Reaction Start Date End Date [...] 3 0.1 mL 07/08 Inactiv e 2023 79106 74355 0 1 time Intrad ermal False Tubersol 5 tub. unit/0.1 mL intradermal injection solution [Tuberculin PPD] 0.1mL Intradermal 1 time For PPD 2nd Step Give 2nd Step PPD Day 1 and Read results Day 3 (schedule 7 days after 1st READ) 0.1mL 07/08 Inactiv e 2023 11607 10617 0 1 time Intrad ermal False Tubersol 5 tub. unit/0.1 mL intradermal injection solution [Tuberculin PPD] 0.1 mL Intradermal 1 time For PPD Step 1 GIVE on Day 1 and read results Day 3 0.1 mL 07/10 Inactiv e 2023 77789 16737 0 1 time Intrad ermal False Tubersol 5 tub. unit/0.1 mL intradermal injection solution [Tuberculin PPD] 0.1mL Intradermal 1 time For PPD 2nd Step Give 2nd Step PPD Day 1 and Read results Day 3 (schedule 7 days after 1st READ) 0.1mL 07/19 Active 2023 89371 83594 0 1 time Intrad ermal False Tylenol 325 mg tablet 2 tabs By Mouth Every 4 hours as needed For Pain DO NOT EXCEED 3000 MG APAP/24 Hours 2 tabs 2023 Active 2023 45802 26371 0 Every 4 hours as needed By Mouth False Tylenol 325 mg tablet 2 tabs By Mouth Every 4 hours as needed For Fever >100 DO NOT EXCEED 3000 MG APAP/24 Hours 2 tabs 2023 Active 2023 07758 23974 0 Every 4 hours as needed By Mouth False Dulcolax (bisacodyl) 10 mg rectal suppository One Suppository per rectum PRN if Milk of Magnisia ineffective. Give on day 5 of no BM 1 sup 2023 Active 2023 27756 96431 1 Daily as needed Rectal False Fleet Enema 19 gram-7 gram/118 mL Administer per rectum PRN one time if dulcolax suppository not effective. Give on day 6 of no BM 1 2023 Active 2023 38717 75910 6 Daily as needed Rectal False Milk of Magnesia 400 mg/5 mL oral suspension [Magnesium hydroxide] PRN 30ml By Mouth Daily as needed for constipation one time daily if no BM, on day 4 of no BM (PRN refer to instructions) For Constipation 30 mL 07/08 Inactiv e 2023 30643 95542 6 Daily as needed By Mouth False Nitroglycer in 0.4 mg sublingual tablet [generic] PRN 0.4 mg Sublingual Every 5 minutes as needed Every 5 min PRN x 3 doses PRN chest pain and notify provider For Chest Pain 0.4 mg 2023 Active 2023 01523 15314 5 Every 5 minutes as needed Sublin gual False Aripiprazol e 5 mg tablet [generic] 1/2 Tab By Mouth Once daily For depression 1/2 Tab 2023 Active 2023 20009 16038 1 Once daily By Mouth False Escitalopra m 5 mg tablet [generic] 1 tablet By Mouth Once daily For depression 1 tablet 2023 Active 2023 85618 69763 1 Once daily By Mouth False Probiotic (B. coagulans) 1 billion cell chewable tablet 1 tablet By Mouth Once daily For supplement 1 tablet 2023 Active 2023 20453 18304 7 Once daily By Mouth False Memantine 10 mg tablet [generic] 1 tablet By Mouth Twice daily For alzheimers 1 tablet 2023 Active 2023 01896 14525 0 Twice daily By Mouth False Lidocaine 4 % topical patch [generic] 2 patches Topical - apply in the morning and remove at night For pain 2 patches 2023 Active 2023 33852 01649 0 Twice daily Topica l False Nystatin (bulk) 1 billion unit powder [generic] apply Topically twice daily to affected skin For fungal skin infection apply 2023 Active 2023 69862 30255 6 Twice daily Topica l False Nystatin (bulk) 1 billion unit powder [generic] apply Topical Twice daily For fungal skin breakdown apply 2023 Active 2023 06942 88612 6 Twice daily Topica l False Albuterol sulfate HFA 90 mcg/actuati on aerosol inhaler [generic] 2 puffs Inhalation Every 4 hours As Needed For COPD 2 puffs 07/11 Inactiv e 2023 97829 15885 2 Every 4 hours Inhala tion False Ascorbic acid (vitamin C) 1,000 mg capsule [generic] 1 tablet By Mouth Once daily For supplement 1 tablet 2023 Active 2023 10295 35225 2 Once daily By Mouth False Epinephrine 0.1 mg/mL injection syringe [generic] 1 dose Intramuscular As Needed for For anaphylaxis 1 dose 2023 Active 2023 46047 45314 1 Intram uscula r False Magnesium 64 mg (magnesium chloride) tablet,opal yed release [generic] 1 tablet By Mouth Twice daily For supplement 1 tablet 2023 Active 2023 60959 11886 6 Twice daily By Mouth False Multivitami n tablet [generic] 1 tablet By Mouth Once daily For supplement 1 tablet 2023 Active 2023 28097 83393 4 Once daily By Mouth False Senna 8.6 mg tablet 1 tablet By Mouth Once daily For constipation 1 tablet 2023 Active 2023 04636 05185 1 Once daily By Mouth False Solifenacin 5 mg tablet [generic] 1 tablet By Mouth Once daily For pulmonary hypertension 1 tablet 2023 Active 2023 08857 58338 0 Once daily By Mouth False Aspirin 81 mg tablet,opal yed release [generic] 1 tablet By Mouth Once daily For DVT prevention 1 tablet 2023 Active 2023 35181 16932 9 Once daily By Mouth False Cholecalcif emily (vitamin D3) 1,250 mcg (50,000 unit) capsule [generic] 1 tablet By Mouth Once daily For supplement 1 tablet 07/11 Inactiv e 2023 64098 60289 6 Once daily By Mouth False Cyanocobala min (vit B-12) 1,000 mcg tablet [generic] 1 tablet By Mouth Once daily For supplement 1 tablet 2023 Active 2023 67519 52802 5 Once daily By Mouth False Ferrous sulfate 325 mg (65 mg iron) tablet [generic] 1 tablet By Mouth Once daily For supplement 1 tablet 2023 Active 2023 20541 73470 5 Once daily By Mouth False Fludrocorti sone 0.1 mg tablet [generic] 1 tablet by mouth Once daily For adrenal insufficiency 1 tablet 2023 Active 2023 38595 78238 1 Once daily By Mouth False Omeprazole 20 mg capsule,del ayed release [generic] 1 tablet By Mouth Once daily before breakfast For GERD 1 tablet 2023 Active 2023 23359 74547 1 Once daily By Mouth False Trelegy Ellipta 100 mcg-62.5 mcg-25 mcg powder for inhalation 1 inhalation Inhalation Once daily For copd 1 inhalat ion 2023 Active 2023 19650 23701 0 Once daily Inhala tion False Hydrocortis one 20 mg tablet [generic] 1 tablet By Mouth Once daily For COPD 1 tablet 07/07 Inactiv e 2023 49233 01549 1 Once daily By Mouth False Hydrocortis one 10 mg tablet [generic] 1 tablet By Mouth Once daily in the afternoon - BE AWARE HYDROCORTISON E 20MG IN THE AM, 10MG in the afternoon For COPD 1 tablet 2023 Active 2023 66603 26434 1 Once daily By Mouth False Hydrocortis one 20 mg tablet [generic] 07/07 Inactiv e 2023 60452 53003 1 Hydrocortis one 20 mg tablet [generic] 1 tablet By Mouth Once daily For COPD - BE AWARE HYDROCORTISON E 20MG IN THE AM, 10MG in the afternoon 1 tablet 2023 Active 2023 38256 83618 1 Once daily By Mouth False Miralax 17 gram/dose oral powder 17 gram By Mouth Once daily For Constipation 17 gram 2023 Active 2023 07369 99619 0 Once daily By Mouth False Myrbetriq 25 mg tablet,exte nded release 25 mg By Mouth Once daily For Bladder Spasms 25 mg 2023 Active 2023 80511 37790 7 Once daily By Mouth False Albuterol sulfate HFA 90 mcg/actuati on aerosol inhaler [generic] 2 puffs Inhalation Every 4 hours as needed For SOB/wheezing 2 puffs 2023 Active 2023 01016 31679 2 Every 4 hours as needed Inhala tion False Vitamin D3 125 mcg (5,000 unit) tablet 5000 unit By Mouth Once daily For Supplement 5000 unit 2023 Active 2023 76377 57950 8 Once daily By Mouth False Methocarbam ol 500 mg tablet [generic] 500 mg By Mouth Twice daily As Needed For Muscle spasms/ back pain 500 mg 2023 Active 2023 74497 92115 1 Twice daily By Mouth False Problems [...] 07/07/2024 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 07/07/2024 Active K21.9 [...] Temperature SpO2 Blood Sugar Pulse Respirations 122 55102 0 68.00 mm[Hg] - Sitting 101.00 mm[Hg] - Sitting 72 NI 234.60 NI 98.20 Tympanic 98.00 % 85.00/ min 18.00/min 122 35022 6 70.00 mm[Hg] - Lying Down 110.00 mm[Hg] - Lying Down 97.80 Tympanic 84.00/ min 18.00/min 08804 123 63064 1 74.00 mm[Hg] - Lying Down 116.00 mm[Hg] - Lying Down 97.40 Tympanic 74.00/ min 18.00/min 78425 123 50450 4 74.00 mm[Hg] - Sitting 116.00 mm[Hg] - Sitting 97.40 Tympanic 74.00/ min 18.00/min 84300 123 02674 4 74.00 mm[Hg] - Sitting 116.00 mm[Hg] - Sitting 97.40 Tympanic 74.00/ min 18.00/min 92021 123 92536 5 82.00 mm[Hg] - Lying Down 153.00 mm[Hg] - Lying Down 98.00 Tympanic 98.00 % 71.00/ min 20.00/min 98490 123 58364 1 54509 124 54685 6 82.00 mm[Hg] - Lying Down 153.00 mm[Hg] - Lying Down 98.00 Tympanic 71.00/ min 20.00/min 01118 124 58466 5 82.00 mm[Hg] - Sitting 153.00 mm[Hg] - Sitting 98.00 Tympanic 71.00/ min 20.00/min 31569 124 33021 0 62.00 mm[Hg] - Sitting 113.00 mm[Hg] - Sitting 97.80 Tympanic 72.00/ min 18.00/min 124 64345 0 62.00 mm[Hg] - Sitting 113.00 mm[Hg] - Sitting 97.80 Forehead Scan 95.00 % 72.00/ min 18.00/min 124 34584 5 77.00 mm[Hg] - Sitting 145.00 mm[Hg] - Sitting 125 59312 5 66.00 mm[Hg] - Sitting 120.00 mm[Hg] - Sitting 97.10 Tympanic 78.00/ min 18.00/min 125 02390 0 68.00 mm[Hg] - Sitting 101.00 mm[Hg] - Sitting 98.20 Tympanic 85.00/ min 18.00/min 125 99215 0 78.00 mm[Hg] - Sitting 141.00 mm[Hg] - Sitting 98.30 Forehead Scan 99.00 % 76.00/ min 18.00/min 125 65012 7 68.00 mm[Hg] - Sitting 121.00 mm[Hg] - Sitting 126 60584 7 82.00 mm[Hg] - Lying Down 169.00 mm[Hg] - Lying Down 98.10 Tympanic 97.00 % 84.00/ min 16.00/min 127 78291 6 75.00 mm[Hg] - Lying Down 144.00 mm[Hg] - Lying Down 98.30 Tympanic 99.00 % 58.00/ min 18.00/min 128 31710 5 98.20 Tympanic
--- OUTSIDE RECORDS SUMMARY | 2024-07-30 07:17 | External Medical Summary | Continuity Of Care Document ---
Author Name Unknown Address [address] [address] [facility] () Care Team Providers Care Sewage Plant Attendant Name Role Phone DO Mallory Amy Primary Care Provider [phone] Allergies Allergy Reaction Start Date End Date [...] 3 0.1 mL 07/08 Inactiv e 2023 34978 91097 0 1 time Intrad ermal False Tubersol 5 tub. unit/0.1 mL intradermal injection solution [Tuberculin PPD] 0.1mL Intradermal 1 time For PPD 2nd Step Give 2nd Step PPD Day 1 and Read results Day 3 (schedule 7 days after 1st READ) 0.1mL 07/08 Inactiv e 2023 44303 92858 0 1 time Intrad ermal False Tubersol 5 tub. unit/0.1 mL intradermal injection solution [Tuberculin PPD] 0.1 mL Intradermal 1 time For PPD Step 1 GIVE on Day 1 and read results Day 3 0.1 mL 07/10 Inactiv e 2023 72276 51881 0 1 time Intrad ermal False Tubersol 5 tub. unit/0.1 mL intradermal injection solution [Tuberculin PPD] 0.1mL Intradermal 1 time For PPD 2nd Step Give 2nd Step PPD Day 1 and Read results Day 3 (schedule 7 days after 1st READ) 0.1mL 07/19 Active 2023 78101 14653 0 1 time Intrad ermal False Tylenol 325 mg tablet 2 tabs By Mouth Every 4 hours as needed For Pain DO NOT EXCEED 3000 MG APAP/24 Hours 2 tabs 2023 Active 2023 47304 22005 0 Every 4 hours as needed By Mouth False Tylenol 325 mg tablet 2 tabs By Mouth Every 4 hours as needed For Fever >100 DO NOT EXCEED 3000 MG APAP/24 Hours 2 tabs 2023 Active 2023 80240 85352 0 Every 4 hours as needed By Mouth False Dulcolax (bisacodyl) 10 mg rectal suppository One Suppository per rectum PRN if Milk of Magnisia ineffective. Give on day 5 of no BM 1 sup 2023 Active 2023 42192 30123 1 Daily as needed Rectal False Fleet Enema 19 gram-7 gram/118 mL Administer per rectum PRN one time if dulcolax suppository not effective. Give on day 6 of no BM 1 2023 Active 2023 29592 61057 6 Daily as needed Rectal False Milk of Magnesia 400 mg/5 mL oral suspension [Magnesium hydroxide] PRN 30ml By Mouth Daily as needed for constipation one time daily if no BM, on day 4 of no BM (PRN refer to instructions) For Constipation 30 mL 07/08 Inactiv e 2023 19291 58323 6 Daily as needed By Mouth False Nitroglycer in 0.4 mg sublingual tablet [generic] PRN 0.4 mg Sublingual Every 5 minutes as needed Every 5 min PRN x 3 doses PRN chest pain and notify provider For Chest Pain 0.4 mg 2023 Active 2023 47585 22796 5 Every 5 minutes as needed Sublin gual False Aripiprazol e 5 mg tablet [generic] 1/2 Tab By Mouth Once daily For depression 1/2 Tab 2023 Active 2023 07964 34020 1 Once daily By Mouth False Escitalopra m 5 mg tablet [generic] 1 tablet By Mouth Once daily For depression 1 tablet 2023 Active 2023 95186 87410 1 Once daily By Mouth False Probiotic (B. coagulans) 1 billion cell chewable tablet 1 tablet By Mouth Once daily For supplement 1 tablet 2023 Active 2023 88116 64809 7 Once daily By Mouth False Memantine 10 mg tablet [generic] 1 tablet By Mouth Twice daily For alzheimers 1 tablet 2023 Active 2023 75493 38520 0 Twice daily By Mouth False Lidocaine 4 % topical patch [generic] 2 patches Topical - apply in the morning and remove at night For pain 2 patches 2023 Active 2023 77263 03088 0 Twice daily Topica l False Nystatin (bulk) 1 billion unit powder [generic] apply Topically twice daily to affected skin For fungal skin infection apply 2023 Active 2023 84020 05974 6 Twice daily Topica l False Nystatin (bulk) 1 billion unit powder [generic] apply Topical Twice daily For fungal skin breakdown apply 2023 Active 2023 33661 50610 6 Twice daily Topica l False Albuterol sulfate HFA 90 mcg/actuati on aerosol inhaler [generic] 2 puffs Inhalation Every 4 hours As Needed For COPD 2 puffs 07/11 Inactiv e 2023 36443 53363 2 Every 4 hours Inhala tion False Ascorbic acid (vitamin C) 1,000 mg capsule [generic] 1 tablet By Mouth Once daily For supplement 1 tablet 2023 Active 2023 78369 89789 2 Once daily By Mouth False Epinephrine 0.1 mg/mL injection syringe [generic] 1 dose Intramuscular As Needed for For anaphylaxis 1 dose 2023 Active 2023 23547 21456 1 Intram uscula r False Magnesium 64 mg (magnesium chloride) tablet,opal yed release [generic] 1 tablet By Mouth Twice daily For supplement 1 tablet 2023 Active 2023 75379 15793 6 Twice daily By Mouth False Multivitami n tablet [generic] 1 tablet By Mouth Once daily For supplement 1 tablet 2023 Active 2023 81606 90328 4 Once daily By Mouth False Senna 8.6 mg tablet 1 tablet By Mouth Once daily For constipation 1 tablet 2023 Active 2023 60118 00491 1 Once daily By Mouth False Solifenacin 5 mg tablet [generic] 1 tablet By Mouth Once daily For pulmonary hypertension 1 tablet 2023 Active 2023 95831 67565 0 Once daily By Mouth False Aspirin 81 mg tablet,opal yed release [generic] 1 tablet By Mouth Once daily For DVT prevention 1 tablet 2023 Active 2023 12243 55514 9 Once daily By Mouth False Cholecalcif emily (vitamin D3) 1,250 mcg (50,000 unit) capsule [generic] 1 tablet By Mouth Once daily For supplement 1 tablet 07/11 Inactiv e 2023 01328 75542 6 Once daily By Mouth False Cyanocobala min (vit B-12) 1,000 mcg tablet [generic] 1 tablet By Mouth Once daily For supplement 1 tablet 2023 Active 2023 69768 27432 5 Once daily By Mouth False Ferrous sulfate 325 mg (65 mg iron) tablet [generic] 1 tablet By Mouth Once daily For supplement 1 tablet 2023 Active 2023 59012 37567 5 Once daily By Mouth False Fludrocorti sone 0.1 mg tablet [generic] 1 tablet by mouth Once daily For adrenal insufficiency 1 tablet 2023 Active 2023 76042 36794 1 Once daily By Mouth False Omeprazole 20 mg capsule,del ayed release [generic] 1 tablet By Mouth Once daily before breakfast For GERD 1 tablet 2023 Active 2023 32092 11424 1 Once daily By Mouth False Trelegy Ellipta 100 mcg-62.5 mcg-25 mcg powder for inhalation 1 inhalation Inhalation Once daily For copd 1 inhalat ion 2023 Active 2023 85944 67182 0 Once daily Inhala tion False Hydrocortis one 20 mg tablet [generic] 1 tablet By Mouth Once daily For COPD 1 tablet 07/07 Inactiv e 2023 03427 85233 1 Once daily By Mouth False Hydrocortis one 10 mg tablet [generic] 1 tablet By Mouth Once daily in the afternoon - BE AWARE HYDROCORTISON E 20MG IN THE AM, 10MG in the afternoon For COPD 1 tablet 07/14 Inactiv e 2023 42442 39723 1 Once daily By Mouth False Hydrocortis one 20 mg tablet [generic] 07/07 Inactiv e 2023 22556 64048 1 Hydrocortis one 20 mg tablet [generic] 1 tablet By Mouth Once daily For COPD - BE AWARE HYDROCORTISON E 20MG IN THE AM, 10MG in the afternoon 1 tablet 2023 Active 2023 24497 56415 1 Once daily By Mouth False Miralax 17 gram/dose oral powder 17 gram By Mouth Once daily For Constipation 17 gram 2023 Active 2023 84977 13400 0 Once daily By Mouth False Myrbetriq 25 mg tablet,exte nded release 25 mg By Mouth Once daily For Bladder Spasms 25 mg 2023 Active 2023 63736 72291 7 Once daily By Mouth False Albuterol sulfate HFA 90 mcg/actuati on aerosol inhaler [generic] 2 puffs Inhalation Every 4 hours as needed For SOB/wheezing 2 puffs 2023 Active 2023 65081 01351 2 Every 4 hours as needed Inhala tion False Vitamin D3 125 mcg (5,000 unit) tablet 5000 unit By Mouth Once daily For Supplement 5000 unit 2023 Active 2023 78358 09442 8 Once daily By Mouth False Methocarbam ol 500 mg tablet [generic] 500 mg By Mouth Twice daily As Needed For Muscle spasms/ back pain 500 mg 2023 Active 2023 66941 04792 1 Twice daily By Mouth False Hydrocortis one 10 mg tablet [generic] 1 tablet By Mouth Once daily in the afternoon - BE AWARE HYDROCORTISON E 20MG IN THE AM, 10MG in the afternoon For COPD 1 tablet 2023 Active 2023 86985 88368 1 Once daily By Mouth False Problems [...] 07/07/2024 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 whipped topping mixer [place] diseases classified elsewhere 07/07/2024 Active K21.9 [...] Temperature SpO2 Blood Sugar Pulse Respirations 122 66419 0 68.00 mm[Hg] - Sitting 101.00 mm[Hg] - Sitting 72 NI 234.60 NI 98.20 Tympanic 98.00 % 85.00/ min 18.00/min 122 86652 6 70.00 mm[Hg] - Lying Down 110.00 mm[Hg] - Lying Down 97.80 Tympanic 84.00/ min 18.00/min 03043 123 93341 1 74.00 mm[Hg] - Lying Down 116.00 mm[Hg] - Lying Down 97.40 Tympanic 74.00/ min 18.00/min 40606 123 24145 4 74.00 mm[Hg] - Sitting 116.00 mm[Hg] - Sitting 97.40 Tympanic 74.00/ min 18.00/min 56675 123 03524 4 74.00 mm[Hg] - Sitting 116.00 mm[Hg] - Sitting 97.40 Tympanic 74.00/ min 18.00/min 58782 123 54682 5 82.00 mm[Hg] - Lying Down 153.00 mm[Hg] - Lying Down 98.00 Tympanic 98.00 % 71.00/ min 20.00/min 14593 123 06772 1 10331 124 37116 6 82.00 mm[Hg] - Lying Down 153.00 mm[Hg] - Lying Down 98.00 Tympanic 71.00/ min 20.00/min 74760 124 12604 5 82.00 mm[Hg] - Sitting 153.00 mm[Hg] - Sitting 98.00 Tympanic 71.00/ min 20.00/min 124 55300 0 62.00 mm[Hg] - Sitting 113.00 mm[Hg] - Sitting 97.80 Tympanic 72.00/ min 18.00/min 124 62658 0 62.00 mm[Hg] - Sitting 113.00 mm[Hg] - Sitting 97.80 Forehead Scan 95.00 % 72.00/ min 18.00/min 124 89409 5 77.00 mm[Hg] - Sitting 145.00 mm[Hg] - Sitting 125 35612 5 66.00 mm[Hg] - Sitting 120.00 mm[Hg] - Sitting 97.10 Tympanic 78.00/ min 18.00/min 125 02497 0 68.00 mm[Hg] - Sitting 101.00 mm[Hg] - Sitting 98.20 Tympanic 85.00/ min 18.00/min 125 98717 0 78.00 mm[Hg] - Sitting 141.00 mm[Hg] - Sitting 98.30 Forehead Scan 99.00 % 76.00/ min 18.00/min 125 70657 7 68.00 mm[Hg] - Sitting 121.00 mm[Hg] - Sitting 126 15122 7 82.00 mm[Hg] - Lying Down 169.00 mm[Hg] - Lying Down 98.10 Tympanic 97.00 % 84.00/ min 16.00/min 127 05804 6 75.00 mm[Hg] - Lying Down 144.00 mm[Hg] - Lying Down 98.30 Tympanic 99.00 % 58.00/ min 18.00/min 128 61217 5 71.00 mm[Hg] - Sitting 126.00 mm[Hg] - Sitting 98.20 Tympanic 99.00 % 97.00/ min 18.00/min 129 62048 0 84.00 mm[Hg] - Sitting 145.00 mm[Hg] - Sitting 98.40 Tympanic 98.00 % 82.00/ min 18.00/min 130 06301 0 87.00 mm[Hg] - Sitting 144.00 mm[Hg] - Sitting 98.40 Forehead Scan 100.0 0% 75.00/ min 18.00/min 201 19187 8 98.00 Tympanic 73.00/ min 18.00/min 201 68951 9 64.00 mm[Hg] - Sitting 117.00 mm[Hg] - Sitting 201 66475 8 226.60 NI 201 99120 0 68.00 mm[Hg] - Sitting 116.00 mm[Hg] - Sitting 98.20 Forehead Scan 96.00 % 81.00/ min 18.00/min 202 00661 0 62.00 mm[Hg] - Sitting 111.00 mm[Hg] - Sitting 98.90 Tympanic 97.00 % 76.00/ min 18.00/min
--- OUTSIDE RECORDS SUMMARY | 2024-07-30 07:17 | External Medical Summary | Continuity Of Care Document ---
Author Name Unknown Address [address] [address] Organization [facility] [place] () Care Team Providers Care Gun Fertilizer Name Role Phone DO Mallory Amy Primary Care Provider [phone] Allergies Allergy Reaction Start Date End Date [...] 3 0.1 mL 07/08 Inactiv e 2023 11877 70062 0 1 time Intrad ermal False Tubersol 5 tub. unit/0.1 mL intradermal injection solution [Tuberculin PPD] 0.1mL Intradermal 1 time For PPD 2nd Step Give 2nd Step PPD Day 1 and Read results Day 3 (schedule 7 days after 1st READ) 0.1mL 07/08 Inactiv e 2023 25572 71582 0 1 time Intrad ermal False Tubersol 5 tub. unit/0.1 mL intradermal injection solution [Tuberculin PPD] 0.1 mL Intradermal 1 time For PPD Step 1 GIVE on Day 1 and read results Day 3 0.1 mL 07/10 Inactiv e 2023 79190 46967 0 1 time Intrad ermal False Tubersol 5 tub. unit/0.1 mL intradermal injection solution [Tuberculin PPD] 0.1mL Intradermal 1 time For PPD 2nd Step Give 2nd Step PPD Day 1 and Read results Day 3 (schedule 7 days after 1st READ) 0.1mL 07/19 Active 2023 20913 86691 0 1 time Intrad ermal False Tylenol 325 mg tablet 2 tabs By Mouth Every 4 hours as needed For Pain DO NOT EXCEED 3000 MG APAP/24 Hours 2 tabs 2023 Active 2023 06192 52051 0 Every 4 hours as needed By Mouth False Tylenol 325 mg tablet 2 tabs By Mouth Every 4 hours as needed For Fever >100 DO NOT EXCEED 3000 MG APAP/24 Hours 2 tabs 2023 Active 2023 21632 72178 0 Every 4 hours as needed By Mouth False Dulcolax (bisacodyl) 10 mg rectal suppository One Suppository per rectum PRN if Milk of Magnisia ineffective. Give on day 5 of no BM 1 sup 2023 Active 2023 18368 68254 1 Daily as needed Rectal False Fleet Enema 19 gram-7 gram/118 mL Administer per rectum PRN one time if dulcolax suppository not effective. Give on day 6 of no BM 1 2023 Active 2023 37995 30391 6 Daily as needed Rectal False Milk of Magnesia 400 mg/5 mL oral suspension [Magnesium hydroxide] PRN 30ml By Mouth Daily as needed for constipation one time daily if no BM, on day 4 of no BM (PRN refer to instructions) For Constipation 30 mL 07/08 Inactiv e 2023 14564 36974 6 Daily as needed By Mouth False Nitroglycer in 0.4 mg sublingual tablet [generic] PRN 0.4 mg Sublingual Every 5 minutes as needed Every 5 min PRN x 3 doses PRN chest pain and notify provider For Chest Pain 0.4 mg 2023 Active 2023 05028 74755 5 Every 5 minutes as needed Sublin gual False Aripiprazol e 5 mg tablet [generic] 1/2 Tab By Mouth Once daily For depression 1/2 Tab 2023 Active 2023 79188 62753 1 Once daily By Mouth False Escitalopra m 5 mg tablet [generic] 1 tablet By Mouth Once daily For depression 1 tablet 2023 Active 2023 67507 37916 1 Once daily By Mouth False Probiotic (B. coagulans) 1 billion cell chewable tablet 1 tablet By Mouth Once daily For supplement 1 tablet 2023 Active 2023 58938 92702 7 Once daily By Mouth False Memantine 10 mg tablet [generic] 1 tablet By Mouth Twice daily For alzheimers 1 tablet 2023 Active 2023 62646 63521 0 Twice daily By Mouth False Lidocaine 4 % topical patch [generic] 2 patches Topical - apply in the morning and remove at night For pain 2 patches 2023 Active 2023 57962 68400 0 Twice daily Topica l False Nystatin (bulk) 1 billion unit powder [generic] apply Topically twice daily to affected skin For fungal skin infection apply 2023 Active 2023 96907 78988 6 Twice daily Topica l False Nystatin (bulk) 1 billion unit powder [generic] apply Topical Twice daily For fungal skin breakdown apply 2023 Active 2023 80687 94362 6 Twice daily Topica l False Albuterol sulfate HFA 90 mcg/actuati on aerosol inhaler [generic] 2 puffs Inhalation Every 4 hours As Needed For COPD 2 puffs 07/11 Inactiv e 2023 04384 38873 2 Every 4 hours Inhala tion False Ascorbic acid (vitamin C) 1,000 mg capsule [generic] 1 tablet By Mouth Once daily For supplement 1 tablet 2023 Active 2023 41735 77791 2 Once daily By Mouth False Epinephrine 0.1 mg/mL injection syringe [generic] 1 dose Intramuscular As Needed for For anaphylaxis 1 dose 2023 Active 2023 65834 12125 1 Intram uscula r False Magnesium 64 mg (magnesium chloride) tablet,opal yed release [generic] 1 tablet By Mouth Twice daily For supplement 1 tablet 2023 Active 2023 91763 78916 6 Twice daily By Mouth False Multivitami n tablet [generic] 1 tablet By Mouth Once daily For supplement 1 tablet 2023 Active 2023 93152 22322 4 Once daily By Mouth False Senna 8.6 mg tablet 1 tablet By Mouth Once daily For constipation 1 tablet 2023 Active 2023 07793 17780 1 Once daily By Mouth False Solifenacin 5 mg tablet [generic] 1 tablet By Mouth Once daily For pulmonary hypertension 1 tablet 2023 Active 2023 63014 35110 0 Once daily By Mouth False Aspirin 81 mg tablet,opal yed release [generic] 1 tablet By Mouth Once daily For DVT prevention 1 tablet 2023 Active 2023 95099 91978 9 Once daily By Mouth False Cholecalcif emily (vitamin D3) 1,250 mcg (50,000 unit) capsule [generic] 1 tablet By Mouth Once daily For supplement 1 tablet 07/11 Inactiv e 2023 36050 63524 6 Once daily By Mouth False Cyanocobala min (vit B-12) 1,000 mcg tablet [generic] 1 tablet By Mouth Once daily For supplement 1 tablet 2023 Active 2023 47357 91586 5 Once daily By Mouth False Ferrous sulfate 325 mg (65 mg iron) tablet [generic] 1 tablet By Mouth Once daily For supplement 1 tablet 2023 Active 2023 71446 84671 5 Once daily By Mouth False Fludrocorti sone 0.1 mg tablet [generic] 1 tablet by mouth Once daily For adrenal insufficiency 1 tablet 2023 Active 2023 38424 14555 1 Once daily By Mouth False Omeprazole 20 mg capsule,del ayed release [generic] 1 tablet By Mouth Once daily before breakfast For GERD 1 tablet 2023 Active 2023 76308 02426 1 Once daily By Mouth False Trelegy Ellipta 100 mcg-62.5 mcg-25 mcg powder for inhalation 1 inhalation Inhalation Once daily For copd 1 inhalat ion 2023 Active 2023 53725 92923 0 Once daily Inhala tion False Hydrocortis one 20 mg tablet [generic] 1 tablet By Mouth Once daily For COPD 1 tablet 07/07 Inactiv e 2023 77806 00197 1 Once daily By Mouth False Hydrocortis one 10 mg tablet [generic] 1 tablet By Mouth Once daily in the afternoon - BE AWARE HYDROCORTISON E 20MG IN THE AM, 10MG in the afternoon For COPD 1 tablet 2023 Active 2023 61393 82396 1 Once daily By Mouth False Hydrocortis one 20 mg tablet [generic] 07/07 Inactiv e 2023 82966 70945 1 Hydrocortis one 20 mg tablet [generic] 1 tablet By Mouth Once daily For COPD - BE AWARE HYDROCORTISON E 20MG IN THE AM, 10MG in the afternoon 1 tablet 2023 Active 2023 94953 70328 1 Once daily By Mouth False Miralax 17 gram/dose oral powder 17 gram By Mouth Once daily For Constipation 17 gram 2023 Active 2023 28529 95117 0 Once daily By Mouth False Myrbetriq 25 mg tablet,exte nded release 25 mg By Mouth Once daily For Bladder Spasms 25 mg 2023 Active 2023 14637 38936 7 Once daily By Mouth False Albuterol sulfate HFA 90 mcg/actuati on aerosol inhaler [generic] 2 puffs Inhalation Every 4 hours as needed For SOB/wheezing 2 puffs 2023 Active 2023 67016 47074 2 Every 4 hours as needed Inhala tion False Vitamin D3 125 mcg (5,000 unit) tablet 5000 unit By Mouth Once daily For Supplement 5000 unit 2023 Active 2023 53769 25812 8 Once daily By Mouth False Methocarbam ol 500 mg tablet [generic] 500 mg By Mouth Twice daily As Needed For Muscle spasms/ back pain 500 mg 2023 Active 2023 39704 17125 1 Twice daily By Mouth False Problems [...] 07/07/2024 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 lighter captain [place] diseases classified elsewhere 07/07/2024 Active K21.9 [...] Temperature SpO2 Blood Sugar Pulse Respirations 122 99262 0 68.00 mm[Hg] - Sitting 101.00 mm[Hg] - Sitting 72 NI 234.60 NI 98.20 Tympanic 98.00 % 85.00/ min 18.00/min 122 63450 6 70.00 mm[Hg] - Lying Down 110.00 mm[Hg] - Lying Down 97.80 Tympanic 84.00/ min 18.00/min 93392 123 74168 1 74.00 mm[Hg] - Lying Down 116.00 mm[Hg] - Lying Down 97.40 Tympanic 74.00/ min 18.00/min 22582 123 95357 4 74.00 mm[Hg] - Sitting 116.00 mm[Hg] - Sitting 97.40 Tympanic 74.00/ min 18.00/min 51506 123 39136 4 74.00 mm[Hg] - Sitting 116.00 mm[Hg] - Sitting 97.40 Tympanic 74.00/ min 18.00/min 54139 123 93831 5 82.00 mm[Hg] - Lying Down 153.00 mm[Hg] - Lying Down 98.00 Tympanic 98.00 % 71.00/ min 20.00/min 42077 123 03636 1 10159 124 42088 6 82.00 mm[Hg] - Lying Down 153.00 mm[Hg] - Lying Down 98.00 Tympanic 71.00/ min 20.00/min 52409 124 19653 5 82.00 mm[Hg] - Sitting 153.00 mm[Hg] - Sitting 98.00 Tympanic 71.00/ min 20.00/min 75078 124 16795 0 62.00 mm[Hg] - Sitting 113.00 mm[Hg] - Sitting 97.80 Tympanic 72.00/ min 18.00/min 124 63274 0 62.00 mm[Hg] - Sitting 113.00 mm[Hg] - Sitting 97.80 Forehead Scan 95.00 % 72.00/ min 18.00/min 124 92946 5 77.00 mm[Hg] - Sitting 145.00 mm[Hg] - Sitting 125 79496 5 66.00 mm[Hg] - Sitting 120.00 mm[Hg] - Sitting 97.10 Tympanic 78.00/ min 18.00/min 125 90355 0 68.00 mm[Hg] - Sitting 101.00 mm[Hg] - Sitting 98.20 Tympanic 85.00/ min 18.00/min 125 31631 0 78.00 mm[Hg] - Sitting 141.00 mm[Hg] - Sitting 98.30 Forehead Scan 99.00 % 76.00/ min 18.00/min 125 29221 7 68.00 mm[Hg] - Sitting 121.00 mm[Hg] - Sitting 126 92270 7 82.00 mm[Hg] - Lying Down 169.00 mm[Hg] - Lying Down 98.10 Tympanic 97.00 % 84.00/ min 16.00/min
--- OUTSIDE RECORDS SUMMARY | 2024-07-30 07:17 | External Medical Summary | Continuity Of Care Document ---
Author Name Unknown Address [address] [address] Organization [facility] [place] () Care Team Providers Care Waredresser Name Role Phone DO Mallory Amy Primary Care Provider [phone] Allergies Allergy Reaction Start Date End Date [...] 3 0.1 mL 07/08 Inactiv e 2023 65936 82293 0 1 time Intrad ermal False Tubersol 5 tub. unit/0.1 mL intradermal injection solution [Tuberculin PPD] 0.1mL Intradermal 1 time For PPD 2nd Step Give 2nd Step PPD Day 1 and Read results Day 3 (schedule 7 days after 1st READ) 0.1mL 07/08 Inactiv e 2023 73579 91069 0 1 time Intrad ermal False Tubersol 5 tub. unit/0.1 mL intradermal injection solution [Tuberculin PPD] 0.1 mL Intradermal 1 time For PPD Step 1 GIVE on Day 1 and read results Day 3 0.1 mL 07/10 Inactiv e 2023 36484 04449 0 1 time Intrad ermal False Tubersol 5 tub. unit/0.1 mL intradermal injection solution [Tuberculin PPD] 0.1mL Intradermal 1 time For PPD 2nd Step Give 2nd Step PPD Day 1 and Read results Day 3 (schedule 7 days after 1st READ) 0.1mL 07/19 Active 2023 43028 60357 0 1 time Intrad ermal False Tylenol 325 mg tablet 2 tabs By Mouth Every 4 hours as needed For Pain DO NOT EXCEED 3000 MG APAP/24 Hours 2 tabs 2023 Active 2023 86805 26146 0 Every 4 hours as needed By Mouth False Tylenol 325 mg tablet 2 tabs By Mouth Every 4 hours as needed For Fever >100 DO NOT EXCEED 3000 MG APAP/24 Hours 2 tabs 2023 Active 2023 52134 49234 0 Every 4 hours as needed By Mouth False Dulcolax (bisacodyl) 10 mg rectal suppository One Suppository per rectum PRN if Milk of Magnisia ineffective. Give on day 5 of no BM 1 sup 2023 Active 2023 05689 19717 1 Daily as needed Rectal False Fleet Enema 19 gram-7 gram/118 mL Administer per rectum PRN one time if dulcolax suppository not effective. Give on day 6 of no BM 1 2023 Active 2023 70581 20334 6 Daily as needed Rectal False Milk of Magnesia 400 mg/5 mL oral suspension [Magnesium hydroxide] PRN 30ml By Mouth Daily as needed for constipation one time daily if no BM, on day 4 of no BM (PRN refer to instructions) For Constipation 30 mL 07/08 Inactiv e 2023 90966 19293 6 Daily as needed By Mouth False Nitroglycer in 0.4 mg sublingual tablet [generic] PRN 0.4 mg Sublingual Every 5 minutes as needed Every 5 min PRN x 3 doses PRN chest pain and notify provider For Chest Pain 0.4 mg 2023 Active 2023 28925 20558 5 Every 5 minutes as needed Sublin gual False Aripiprazol e 5 mg tablet [generic] 1/2 Tab By Mouth Once daily For depression 1/2 Tab 2023 Active 2023 87491 44093 1 Once daily By Mouth False Escitalopra m 5 mg tablet [generic] 1 tablet By Mouth Once daily For depression 1 tablet 2023 Active 2023 21332 99566 1 Once daily By Mouth False Probiotic (B. coagulans) 1 billion cell chewable tablet 1 tablet By Mouth Once daily For supplement 1 tablet 2023 Active 2023 99454 43212 7 Once daily By Mouth False Memantine 10 mg tablet [generic] 1 tablet By Mouth Twice daily For alzheimers 1 tablet 2023 Active 2023 99709 78930 0 Twice daily By Mouth False Lidocaine 4 % topical patch [generic] 2 patches Topical - apply in the morning and remove at night For pain 2 patches 2023 Active 2023 95847 76477 0 Twice daily Topica l False Nystatin (bulk) 1 billion unit powder [generic] apply Topically twice daily to affected skin For fungal skin infection apply 2023 Active 2023 39538 15032 6 Twice daily Topica l False Nystatin (bulk) 1 billion unit powder [generic] apply Topical Twice daily For fungal skin breakdown apply 2023 Active 2023 67254 97797 6 Twice daily Topica l False Albuterol sulfate HFA 90 mcg/actuati on aerosol inhaler [generic] 2 puffs Inhalation Every 4 hours As Needed For COPD 2 puffs 07/11 Inactiv e 2023 50054 95633 2 Every 4 hours Inhala tion False Ascorbic acid (vitamin C) 1,000 mg capsule [generic] 1 tablet By Mouth Once daily For supplement 1 tablet 2023 Active 2023 54654 70082 2 Once daily By Mouth False Epinephrine 0.1 mg/mL injection syringe [generic] 1 dose Intramuscular As Needed for For anaphylaxis 1 dose 2023 Active 2023 27329 63173 1 Intram uscula r False Magnesium 64 mg (magnesium chloride) tablet,opal yed release [generic] 1 tablet By Mouth Twice daily For supplement 1 tablet 2023 Active 2023 82937 30571 6 Twice daily By Mouth False Multivitami n tablet [generic] 1 tablet By Mouth Once daily For supplement 1 tablet 2023 Active 2023 12998 78350 4 Once daily By Mouth False Senna 8.6 mg tablet 1 tablet By Mouth Once daily For constipation 1 tablet 2023 Active 2023 12688 78704 1 Once daily By Mouth False Solifenacin 5 mg tablet [generic] 1 tablet By Mouth Once daily For pulmonary hypertension 1 tablet 2023 Active 2023 57226 62415 0 Once daily By Mouth False Aspirin 81 mg tablet,opal yed release [generic] 1 tablet By Mouth Once daily For DVT prevention 1 tablet 2023 Active 2023 97835 52081 9 Once daily By Mouth False Cholecalcif emily (vitamin D3) 1,250 mcg (50,000 unit) capsule [generic] 1 tablet By Mouth Once daily For supplement 1 tablet 07/11 Inactiv e 2023 18055 43445 6 Once daily By Mouth False Cyanocobala min (vit B-12) 1,000 mcg tablet [generic] 1 tablet By Mouth Once daily For supplement 1 tablet 2023 Active 2023 92898 48946 5 Once daily By Mouth False Ferrous sulfate 325 mg (65 mg iron) tablet [generic] 1 tablet By Mouth Once daily For supplement 1 tablet 2023 Active 2023 40946 73658 5 Once daily By Mouth False Fludrocorti sone 0.1 mg tablet [generic] 1 tablet by mouth Once daily For adrenal insufficiency 1 tablet 2023 Active 2023 56408 51887 1 Once daily By Mouth False Omeprazole 20 mg capsule,del ayed release [generic] 1 tablet By Mouth Once daily before breakfast For GERD 1 tablet 2023 Active 2023 06185 09624 1 Once daily By Mouth False Trelegy Ellipta 100 mcg-62.5 mcg-25 mcg powder for inhalation 1 inhalation Inhalation Once daily For copd 1 inhalat ion 2023 Active 2023 05675 44738 0 Once daily Inhala tion False Hydrocortis one 20 mg tablet [generic] 1 tablet By Mouth Once daily For COPD 1 tablet 07/07 Inactiv e 2023 75471 27526 1 Once daily By Mouth False Hydrocortis one 10 mg tablet [generic] 1 tablet By Mouth Once daily in the afternoon - BE AWARE HYDROCORTISON E 20MG IN THE AM, 10MG in the afternoon For COPD 1 tablet 2023 Active 2023 96832 70465 1 Once daily By Mouth False Hydrocortis one 20 mg tablet [generic] 07/07 Inactiv e 2023 56692 40484 1 Hydrocortis one 20 mg tablet [generic] 1 tablet By Mouth Once daily For COPD - BE AWARE HYDROCORTISON E 20MG IN THE AM, 10MG in the afternoon 1 tablet 2023 Active 2023 45089 50052 1 Once daily By Mouth False Miralax 17 gram/dose oral powder 17 gram By Mouth Once daily For Constipation 17 gram 2023 Active 2023 81278 20049 0 Once daily By Mouth False Myrbetriq 25 mg tablet,exte nded release 25 mg By Mouth Once daily For Bladder Spasms 25 mg 2023 Active 2023 99917 43885 7 Once daily By Mouth False Albuterol sulfate HFA 90 mcg/actuati on aerosol inhaler [generic] 2 puffs Inhalation Every 4 hours as needed For SOB/wheezing 2 puffs 2023 Active 2023 77287 76253 2 Every 4 hours as needed Inhala tion False Vitamin D3 125 mcg (5,000 unit) tablet 5000 unit By Mouth Once daily For Supplement 5000 unit 2023 Active 2023 59445 84278 8 Once daily By Mouth False Methocarbam ol 500 mg tablet [generic] 500 mg By Mouth Twice daily As Needed For Muscle spasms/ back pain 500 mg 2023 Active 2023 05827 60571 1 Twice daily By Mouth False Problems [...] 07/07/2024 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 07/07/2024 Active [...] Temperature SpO2 Blood Sugar Pulse Respirations 122 86693 0 68.00 mm[Hg] - Sitting 101.00 mm[Hg] - Sitting 72 NI 234.60 NI 98.20 Tympanic 98.00 % 85.00/ min 18.00/min 122 27181 6 70.00 mm[Hg] - Lying Down 110.00 mm[Hg] - Lying Down 97.80 Tympanic 84.00/ min 18.00/min 58052 123 09496 1 74.00 mm[Hg] - Lying Down 116.00 mm[Hg] - Lying Down 97.40 Tympanic 74.00/ min 18.00/min 66353 123 26246 4 74.00 mm[Hg] - Sitting 116.00 mm[Hg] - Sitting 97.40 Tympanic 74.00/ min 18.00/min 37676 123 42327 4 74.00 mm[Hg] - Sitting 116.00 mm[Hg] - Sitting 97.40 Tympanic 74.00/ min 18.00/min 33623 123 40495 5 82.00 mm[Hg] - Lying Down 153.00 mm[Hg] - Lying Down 98.00 Tympanic 98.00 % 71.00/ min 20.00/min 69155 123 22938 1 78792 124 28333 6 82.00 mm[Hg] - Lying Down 153.00 mm[Hg] - Lying Down 98.00 Tympanic 71.00/ min 20.00/min 86068 124 53377 5 82.00 mm[Hg] - Sitting 153.00 mm[Hg] - Sitting 98.00 Tympanic 71.00/ min 20.00/min 47243 124 75198 0 62.00 mm[Hg] - Sitting 113.00 mm[Hg] - Sitting 97.80 Tympanic 72.00/ min 18.00/min 124 54111 0 62.00 mm[Hg] - Sitting 113.00 mm[Hg] - Sitting 97.80 Forehead Scan 95.00 % 72.00/ min 18.00/min 124 42936 5 77.00 mm[Hg] - Sitting 145.00 mm[Hg] - Sitting 125 07788 5 66.00 mm[Hg] - Sitting 120.00 mm[Hg] - Sitting 97.10 Tympanic 78.00/ min 18.00/min 125 22196 0 68.00 mm[Hg] - Sitting 101.00 mm[Hg] - Sitting 98.20 Tympanic 85.00/ min 18.00/min 125 78122 0 78.00 mm[Hg] - Sitting 141.00 mm[Hg] - Sitting 98.30 Forehead Scan 99.00 % 76.00/ min 18.00/min 125 18258 7 68.00 mm[Hg] - Sitting 121.00 mm[Hg] - Sitting 126 42408 7 82.00 mm[Hg] - Lying Down 169.00 mm[Hg] - Lying Down 98.10 Tympanic 97.00 % 84.00/ min 16.00/min
--- OUTSIDE RECORDS SUMMARY | 2024-07-30 07:17 | External Medical Summary | Continuity Of Care Document ---
Author Name Unknown Address [address] [address] Organization [facility] [place] () Care Team Providers Care Project Crew Worker Name Role Phone DO Mallory Amy Primary Care Provider [phone] Allergies Allergy Reaction Start Date End Date [...] 3 0.1 mL 07/08 Inactiv e 2023 66839 14578 0 1 time Intrad ermal False Tubersol 5 tub. unit/0.1 mL intradermal injection solution [Tuberculin PPD] 0.1mL Intradermal 1 time For PPD 2nd Step Give 2nd Step PPD Day 1 and Read results Day 3 (schedule 7 days after 1st READ) 0.1mL 07/08 Inactiv e 2023 42438 71080 0 1 time Intrad ermal False Tubersol 5 tub. unit/0.1 mL intradermal injection solution [Tuberculin PPD] 0.1 mL Intradermal 1 time For PPD Step 1 GIVE on Day 1 and read results Day 3 0.1 mL 07/10 Inactiv e 2023 04517 90039 0 1 time Intrad ermal False Tubersol 5 tub. unit/0.1 mL intradermal injection solution [Tuberculin PPD] 0.1mL Intradermal 1 time For PPD 2nd Step Give 2nd Step PPD Day 1 and Read results Day 3 (schedule 7 days after 1st READ) 0.1mL 07/19 Active 2023 14915 91554 0 1 time Intrad ermal False Tylenol 325 mg tablet 2 tabs By Mouth Every 4 hours as needed For Pain DO NOT EXCEED 3000 MG APAP/24 Hours 2 tabs 2023 Active 2023 59781 18222 0 Every 4 hours as needed By Mouth False Tylenol 325 mg tablet 2 tabs By Mouth Every 4 hours as needed For Fever >100 DO NOT EXCEED 3000 MG APAP/24 Hours 2 tabs 2023 Active 2023 24027 96248 0 Every 4 hours as needed By Mouth False Dulcolax (bisacodyl) 10 mg rectal suppository One Suppository per rectum PRN if Milk of Magnisia ineffective. Give on day 5 of no BM 1 sup 2023 Active 2023 16242 07398 1 Daily as needed Rectal False Fleet Enema 19 gram-7 gram/118 mL Administer per rectum PRN one time if dulcolax suppository not effective. Give on day 6 of no BM 1 2023 Active 2023 92649 30346 6 Daily as needed Rectal False Milk of Magnesia 400 mg/5 mL oral suspension [Magnesium hydroxide] PRN 30ml By Mouth Daily as needed for constipation one time daily if no BM, on day 4 of no BM (PRN refer to instructions) For Constipation 30 mL 07/08 Inactiv e 2023 14714 92064 6 Daily as needed By Mouth False Nitroglycer in 0.4 mg sublingual tablet [generic] PRN 0.4 mg Sublingual Every 5 minutes as needed Every 5 min PRN x 3 doses PRN chest pain and notify provider For Chest Pain 0.4 mg 2023 Active 2023 49954 85849 5 Every 5 minutes as needed Sublin gual False Aripiprazol e 5 mg tablet [generic] 1/2 Tab By Mouth Once daily For depression 1/2 Tab 2023 Active 2023 53602 80138 1 Once daily By Mouth False Escitalopra m 5 mg tablet [generic] 1 tablet By Mouth Once daily For depression 1 tablet 2023 Active 2023 01781 13705 1 Once daily By Mouth False Probiotic (B. coagulans) 1 billion cell chewable tablet 1 tablet By Mouth Once daily For supplement 1 tablet 2023 Active 2023 67094 16755 7 Once daily By Mouth False Memantine 10 mg tablet [generic] 1 tablet By Mouth Twice daily For alzheimers 1 tablet 2023 Active 2023 63464 95258 0 Twice daily By Mouth False Lidocaine 4 % topical patch [generic] 2 patches Topical - apply in the morning and remove at night For pain 2 patches 2023 Active 2023 92324 47407 0 Twice daily Topica l False Nystatin (bulk) 1 billion unit powder [generic] apply Topically twice daily to affected skin For fungal skin infection apply 2023 Active 2023 68366 63585 6 Twice daily Topica l False Nystatin (bulk) 1 billion unit powder [generic] apply Topical Twice daily For fungal skin breakdown apply 2023 Active 2023 77015 50713 6 Twice daily Topica l False Albuterol sulfate HFA 90 mcg/actuati on aerosol inhaler [generic] 2 puffs Inhalation Every 4 hours As Needed For COPD 2 puffs 07/11 Inactiv e 2023 65666 22930 2 Every 4 hours Inhala tion False Ascorbic acid (vitamin C) 1,000 mg capsule [generic] 1 tablet By Mouth Once daily For supplement 1 tablet 2023 Active 2023 45525 67432 2 Once daily By Mouth False Epinephrine 0.1 mg/mL injection syringe [generic] 1 dose Intramuscular As Needed for For anaphylaxis 1 dose 2023 Active 2023 88497 88551 1 Intram uscula r False Magnesium 64 mg (magnesium chloride) tablet,opal yed release [generic] 1 tablet By Mouth Twice daily For supplement 1 tablet 2023 Active 2023 36676 16766 6 Twice daily By Mouth False Multivitami n tablet [generic] 1 tablet By Mouth Once daily For supplement 1 tablet 2023 Active 2023 46249 09198 4 Once daily By Mouth False Senna 8.6 mg tablet 1 tablet By Mouth Once daily For constipation 1 tablet 2023 Active 2023 60289 51021 1 Once daily By Mouth False Solifenacin 5 mg tablet [generic] 1 tablet By Mouth Once daily For pulmonary hypertension 1 tablet 2023 Active 2023 08605 27804 0 Once daily By Mouth False Aspirin 81 mg tablet,opal yed release [generic] 1 tablet By Mouth Once daily For DVT prevention 1 tablet 2023 Active 2023 18383 23513 9 Once daily By Mouth False Cholecalcif emily (vitamin D3) 1,250 mcg (50,000 unit) capsule [generic] 1 tablet By Mouth Once daily For supplement 1 tablet 07/11 Inactiv e 2023 77047 35587 6 Once daily By Mouth False Cyanocobala min (vit B-12) 1,000 mcg tablet [generic] 1 tablet By Mouth Once daily For supplement 1 tablet 2023 Active 2023 92900 30010 5 Once daily By Mouth False Ferrous sulfate 325 mg (65 mg iron) tablet [generic] 1 tablet By Mouth Once daily For supplement 1 tablet 2023 Active 2023 60642 92785 5 Once daily By Mouth False Fludrocorti sone 0.1 mg tablet [generic] 1 tablet by mouth Once daily For adrenal insufficiency 1 tablet 2023 Active 2023 91272 31661 1 Once daily By Mouth False Omeprazole 20 mg capsule,del ayed release [generic] 1 tablet By Mouth Once daily before breakfast For GERD 1 tablet 2023 Active 2023 07331 55673 1 Once daily By Mouth False Trelegy Ellipta 100 mcg-62.5 mcg-25 mcg powder for inhalation 1 inhalation Inhalation Once daily For copd 1 inhalat ion 2023 Active 2023 74595 34211 0 Once daily Inhala tion False Hydrocortis one 20 mg tablet [generic] 1 tablet By Mouth Once daily For COPD 1 tablet 07/07 Inactiv e 2023 65130 79905 1 Once daily By Mouth False Hydrocortis one 10 mg tablet [generic] 1 tablet By Mouth Once daily in the afternoon - BE AWARE HYDROCORTISON E 20MG IN THE AM, 10MG in the afternoon For COPD 1 tablet 07/14 Inactiv e 2023 46340 13324 1 Once daily By Mouth False Hydrocortis one 20 mg tablet [generic] 07/07 Inactiv e 2023 32792 60604 1 Hydrocortis one 20 mg tablet [generic] 1 tablet By Mouth Once daily For COPD - BE AWARE HYDROCORTISON E 20MG IN THE AM, 10MG in the afternoon 1 tablet 2023 Active 2023 35404 70548 1 Once daily By Mouth False Miralax 17 gram/dose oral powder 17 gram By Mouth Once daily For Constipation 17 gram 2023 Active 2023 92251 27326 0 Once daily By Mouth False Myrbetriq 25 mg tablet,exte nded release 25 mg By Mouth Once daily For Bladder Spasms 25 mg 2023 Active 2023 38326 55351 7 Once daily By Mouth False Albuterol sulfate HFA 90 mcg/actuati on aerosol inhaler [generic] 2 puffs Inhalation Every 4 hours as needed For SOB/wheezing 2 puffs 2023 Active 2023 64050 95750 2 Every 4 hours as needed Inhala tion False Vitamin D3 125 mcg (5,000 unit) tablet 5000 unit By Mouth Once daily For Supplement 5000 unit 2023 Active 2023 70529 30730 8 Once daily By Mouth False Methocarbam ol 500 mg tablet [generic] 500 mg By Mouth Twice daily As Needed For Muscle spasms/ back pain 500 mg 2023 Active 2023 47757 81536 1 Twice daily By Mouth False Hydrocortis one 10 mg tablet [generic] 1 tablet By Mouth Once daily in the afternoon - BE AWARE HYDROCORTISON E 20MG IN THE AM, 10MG in the afternoon For COPD 1 tablet 2023 Active 2023 33764 34842 1 Once daily By Mouth False Problems [...] 07/07/2024 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 07/07/2024 Active K21.9 [...] Temperature SpO2 Blood Sugar Pulse Respirations 122 23641 0 68.00 mm[Hg] - Sitting 101.00 mm[Hg] - Sitting 72 NI 234.60 NI 98.20 Tympanic 98.00 % 85.00/ min 18.00/min 122 18199 6 70.00 mm[Hg] - Lying Down 110.00 mm[Hg] - Lying Down 97.80 Tympanic 84.00/ min 18.00/min 93149 123 20634 1 74.00 mm[Hg] - Lying Down 116.00 mm[Hg] - Lying Down 97.40 Tympanic 74.00/ min 18.00/min 52438 123 19214 4 74.00 mm[Hg] - Sitting 116.00 mm[Hg] - Sitting 97.40 Tympanic 74.00/ min 18.00/min 37010 123 04201 4 74.00 mm[Hg] - Sitting 116.00 mm[Hg] - Sitting 97.40 Tympanic 74.00/ min 18.00/min 87166 123 56579 5 82.00 mm[Hg] - Lying Down 153.00 mm[Hg] - Lying Down 98.00 Tympanic 98.00 % 71.00/ min 20.00/min 98082 123 38195 1 88112 124 63748 6 82.00 mm[Hg] - Lying Down 153.00 mm[Hg] - Lying Down 98.00 Tympanic 71.00/ min 20.00/min 81913 124 18653 5 82.00 mm[Hg] - Sitting 153.00 mm[Hg] - Sitting 98.00 Tympanic 71.00/ min 20.00/min 124 30576 0 62.00 mm[Hg] - Sitting 113.00 mm[Hg] - Sitting 97.80 Tympanic 72.00/ min 18.00/min 124 56863 0 62.00 mm[Hg] - Sitting 113.00 mm[Hg] - Sitting 97.80 Forehead Scan 95.00 % 72.00/ min 18.00/min 124 88165 5 77.00 mm[Hg] - Sitting 145.00 mm[Hg] - Sitting 125 57029 5 66.00 mm[Hg] - Sitting 120.00 mm[Hg] - Sitting 97.10 Tympanic 78.00/ min 18.00/min 125 38207 0 68.00 mm[Hg] - Sitting 101.00 mm[Hg] - Sitting 98.20 Tympanic 85.00/ min 18.00/min 125 33684 0 78.00 mm[Hg] - Sitting 141.00 mm[Hg] - Sitting 98.30 Forehead Scan 99.00 % 76.00/ min 18.00/min 125 19010 7 68.00 mm[Hg] - Sitting 121.00 mm[Hg] - Sitting 126 41939 7 82.00 mm[Hg] - Lying Down 169.00 mm[Hg] - Lying Down 98.10 Tympanic 97.00 % 84.00/ min 16.00/min 127 76054 6 75.00 mm[Hg] - Lying Down 144.00 mm[Hg] - Lying Down 98.30 Tympanic 99.00 % 58.00/ min 18.00/min 128 94861 5 71.00 mm[Hg] - Sitting 126.00 mm[Hg] - Sitting 98.20 Tympanic 99.00 % 97.00/ min 18.00/min
--- OUTSIDE RECORDS SUMMARY | 2024-07-30 07:17 | External Medical Summary | Continuity Of Care Document ---
Author Name Unknown Address [address] [address] [facility] () Care Team Providers Care Health Unit Supervisor Name Role Phone DO Mallory Amy Primary Care Provider [phone] Allergies Allergy Reaction Start Date End Date [...] 3 0.1 mL 07/08 Inactiv e 2023 72043 93481 0 1 time Intrad ermal False Tubersol 5 tub. unit/0.1 mL intradermal injection solution [Tuberculin PPD] 0.1mL Intradermal 1 time For PPD 2nd Step Give 2nd Step PPD Day 1 and Read results Day 3 (schedule 7 days after 1st READ) 0.1mL 07/08 Inactiv e 2023 08591 66056 0 1 time Intrad ermal False Tubersol 5 tub. unit/0.1 mL intradermal injection solution [Tuberculin PPD] 0.1 mL Intradermal 1 time For PPD Step 1 GIVE on Day 1 and read results Day 3 0.1 mL 07/10 Inactiv e 2023 74200 01035 0 1 time Intrad ermal False Tubersol 5 tub. unit/0.1 mL intradermal injection solution [Tuberculin PPD] 0.1mL Intradermal 1 time For PPD 2nd Step Give 2nd Step PPD Day 1 and Read results Day 3 (schedule 7 days after 1st READ) 0.1mL 07/19 Active 2023 04042 86640 0 1 time Intrad ermal False Tylenol 325 mg tablet 2 tabs By Mouth Every 4 hours as needed For Pain DO NOT EXCEED 3000 MG APAP/24 Hours 2 tabs 2023 Active 2023 72314 60469 0 Every 4 hours as needed By Mouth False Tylenol 325 mg tablet 2 tabs By Mouth Every 4 hours as needed For Fever >100 DO NOT EXCEED 3000 MG APAP/24 Hours 2 tabs 2023 Active 2023 02964 56736 0 Every 4 hours as needed By Mouth False Dulcolax (bisacodyl) 10 mg rectal suppository One Suppository per rectum PRN if Milk of Magnisia ineffective. Give on day 5 of no BM 1 sup 2023 Active 2023 78273 01802 1 Daily as needed Rectal False Fleet Enema 19 gram-7 gram/118 mL Administer per rectum PRN one time if dulcolax suppository not effective. Give on day 6 of no BM 1 2023 Active 2023 26564 51611 6 Daily as needed Rectal False Milk of Magnesia 400 mg/5 mL oral suspension [Magnesium hydroxide] PRN 30ml By Mouth Daily as needed for constipation one time daily if no BM, on day 4 of no BM (PRN refer to instructions) For Constipation 30 mL 07/08 Inactiv e 2023 45444 15374 6 Daily as needed By Mouth False Nitroglycer in 0.4 mg sublingual tablet [generic] PRN 0.4 mg Sublingual Every 5 minutes as needed Every 5 min PRN x 3 doses PRN chest pain and notify provider For Chest Pain 0.4 mg 2023 Active 2023 92693 45588 5 Every 5 minutes as needed Sublin gual False Aripiprazol e 5 mg tablet [generic] 1/2 Tab By Mouth Once daily For depression 1/2 Tab 2023 Active 2023 98415 12733 1 Once daily By Mouth False Escitalopra m 5 mg tablet [generic] 1 tablet By Mouth Once daily For depression 1 tablet 2023 Active 2023 08527 98867 1 Once daily By Mouth False Probiotic (B. coagulans) 1 billion cell chewable tablet 1 tablet By Mouth Once daily For supplement 1 tablet 2023 Active 2023 91010 69774 7 Once daily By Mouth False Memantine 10 mg tablet [generic] 1 tablet By Mouth Twice daily For alzheimers 1 tablet 2023 Active 2023 28050 12386 0 Twice daily By Mouth False Lidocaine 4 % topical patch [generic] 2 patches Topical - apply in the morning and remove at night For pain 2 patches 2023 Active 2023 67870 44822 0 Twice daily Topica l False Nystatin (bulk) 1 billion unit powder [generic] apply Topically twice daily to affected skin For fungal skin infection apply 2023 Active 2023 60093 52544 6 Twice daily Topica l False Nystatin (bulk) 1 billion unit powder [generic] apply Topical Twice daily For fungal skin breakdown apply 2023 Active 2023 67463 70443 6 Twice daily Topica l False Albuterol sulfate HFA 90 mcg/actuati on aerosol inhaler [generic] 2 puffs Inhalation Every 4 hours As Needed For COPD 2 puffs 07/11 Inactiv e 2023 57483 67140 2 Every 4 hours Inhala tion False Ascorbic acid (vitamin C) 1,000 mg capsule [generic] 1 tablet By Mouth Once daily For supplement 1 tablet 2023 Active 2023 74676 37317 2 Once daily By Mouth False Epinephrine 0.1 mg/mL injection syringe [generic] 1 dose Intramuscular As Needed for For anaphylaxis 1 dose 2023 Active 2023 92863 47187 1 Intram uscula r False Magnesium 64 mg (magnesium chloride) tablet,opal yed release [generic] 1 tablet By Mouth Twice daily For supplement 1 tablet 2023 Active 2023 23983 45830 6 Twice daily By Mouth False Multivitami n tablet [generic] 1 tablet By Mouth Once daily For supplement 1 tablet 2023 Active 2023 32033 87054 4 Once daily By Mouth False Senna 8.6 mg tablet 1 tablet By Mouth Once daily For constipation 1 tablet 2023 Active 2023 31678 95240 1 Once daily By Mouth False Solifenacin 5 mg tablet [generic] 1 tablet By Mouth Once daily For pulmonary hypertension 1 tablet 2023 Active 2023 14816 87431 0 Once daily By Mouth False Aspirin 81 mg tablet,opal yed release [generic] 1 tablet By Mouth Once daily For DVT prevention 1 tablet 2023 Active 2023 06703 48376 9 Once daily By Mouth False Cholecalcif emily (vitamin D3) 1,250 mcg (50,000 unit) capsule [generic] 1 tablet By Mouth Once daily For supplement 1 tablet 07/11 Inactiv e 2023 63182 43305 6 Once daily By Mouth False Cyanocobala min (vit B-12) 1,000 mcg tablet [generic] 1 tablet By Mouth Once daily For supplement 1 tablet 2023 Active 2023 67991 22836 5 Once daily By Mouth False Ferrous sulfate 325 mg (65 mg iron) tablet [generic] 1 tablet By Mouth Once daily For supplement 1 tablet 2023 Active 2023 20017 12872 5 Once daily By Mouth False Fludrocorti sone 0.1 mg tablet [generic] 1 tablet by mouth Once daily For adrenal insufficiency 1 tablet 2023 Active 2023 93938 21182 1 Once daily By Mouth False Omeprazole 20 mg capsule,del ayed release [generic] 1 tablet By Mouth Once daily before breakfast For GERD 1 tablet 2023 Active 2023 49835 11666 1 Once daily By Mouth False Trelegy Ellipta 100 mcg-62.5 mcg-25 mcg powder for inhalation 1 inhalation Inhalation Once daily For copd 1 inhalat ion 2023 Active 2023 43511 98206 0 Once daily Inhala tion False Hydrocortis one 20 mg tablet [generic] 1 tablet By Mouth Once daily For COPD 1 tablet 07/07 Inactiv e 2023 47833 10052 1 Once daily By Mouth False Hydrocortis one 10 mg tablet [generic] 1 tablet By Mouth Once daily in the afternoon - BE AWARE HYDROCORTISON E 20MG IN THE AM, 10MG in the afternoon For COPD 1 tablet 07/14 Inactiv e 2023 35180 15638 1 Once daily By Mouth False Hydrocortis one 20 mg tablet [generic] 07/07 Inactiv e 2023 22852 31955 1 Hydrocortis one 20 mg tablet [generic] 1 tablet By Mouth Once daily For COPD - BE AWARE HYDROCORTISON E 20MG IN THE AM, 10MG in the afternoon 1 tablet 2023 Active 2023 62635 03087 1 Once daily By Mouth False Miralax 17 gram/dose oral powder 17 gram By Mouth Once daily For Constipation 17 gram 2023 Active 2023 52973 67332 0 Once daily By Mouth False Myrbetriq 25 mg tablet,exte nded release 25 mg By Mouth Once daily For Bladder Spasms 25 mg 2023 Active 2023 35223 03355 7 Once daily By Mouth False Albuterol sulfate HFA 90 mcg/actuati on aerosol inhaler [generic] 2 puffs Inhalation Every 4 hours as needed For SOB/wheezing 2 puffs 2023 Active 2023 93317 60887 2 Every 4 hours as needed Inhala tion False Vitamin D3 125 mcg (5,000 unit) tablet 5000 unit By Mouth Once daily For Supplement 5000 unit 2023 Active 2023 16915 55903 8 Once daily By Mouth False Methocarbam ol 500 mg tablet [generic] 500 mg By Mouth Twice daily As Needed For Muscle spasms/ back pain 500 mg 2023 Active 2023 29742 80529 1 Twice daily By Mouth False Hydrocortis one 10 mg tablet [generic] 1 tablet By Mouth Once daily in the afternoon - BE AWARE HYDROCORTISON E 20MG IN THE AM, 10MG in the afternoon For COPD 1 tablet 2023 Active 2023 14740 78357 1 Once daily By Mouth False Problems [...] 07/07/2024 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 sheepskin pickler [place] diseases classified elsewhere 07/07/2024 Active K21.9 [...] Temperature SpO2 Blood Sugar Pulse Respirations 122 50275 0 68.00 mm[Hg] - Sitting 101.00 mm[Hg] - Sitting 72 NI 234.60 NI 98.20 Tympanic 98.00 % 85.00/ min 18.00/min 122 51006 6 70.00 mm[Hg] - Lying Down 110.00 mm[Hg] - Lying Down 97.80 Tympanic 84.00/ min 18.00/min 79281 123 38189 1 74.00 mm[Hg] - Lying Down 116.00 mm[Hg] - Lying Down 97.40 Tympanic 74.00/ min 18.00/min 39295 123 87912 4 74.00 mm[Hg] - Sitting 116.00 mm[Hg] - Sitting 97.40 Tympanic 74.00/ min 18.00/min 41875 123 39550 4 74.00 mm[Hg] - Sitting 116.00 mm[Hg] - Sitting 97.40 Tympanic 74.00/ min 18.00/min 02632 123 47095 5 82.00 mm[Hg] - Lying Down 153.00 mm[Hg] - Lying Down 98.00 Tympanic 98.00 % 71.00/ min 20.00/min 17281 123 23667 1 32793 124 70986 6 82.00 mm[Hg] - Lying Down 153.00 mm[Hg] - Lying Down 98.00 Tympanic 71.00/ min 20.00/min 73494 124 67317 5 82.00 mm[Hg] - Sitting 153.00 mm[Hg] - Sitting 98.00 Tympanic 71.00/ min 20.00/min 124 99018 0 62.00 mm[Hg] - Sitting 113.00 mm[Hg] - Sitting 97.80 Tympanic 72.00/ min 18.00/min 124 77322 0 62.00 mm[Hg] - Sitting 113.00 mm[Hg] - Sitting 97.80 Forehead Scan 95.00 % 72.00/ min 18.00/min 124 07444 5 77.00 mm[Hg] - Sitting 145.00 mm[Hg] - Sitting 125 96597 5 66.00 mm[Hg] - Sitting 120.00 mm[Hg] - Sitting 97.10 Tympanic 78.00/ min 18.00/min 125 34862 0 68.00 mm[Hg] - Sitting 101.00 mm[Hg] - Sitting 98.20 Tympanic 85.00/ min 18.00/min 125 63546 0 78.00 mm[Hg] - Sitting 141.00 mm[Hg] - Sitting 98.30 Forehead Scan 99.00 % 76.00/ min 18.00/min 125 43429 7 68.00 mm[Hg] - Sitting 121.00 mm[Hg] - Sitting 126 97790 7 82.00 mm[Hg] - Lying Down 169.00 mm[Hg] - Lying Down 98.10 Tympanic 97.00 % 84.00/ min 16.00/min 127 91550 6 75.00 mm[Hg] - Lying Down 144.00 mm[Hg] - Lying Down 98.30 Tympanic 99.00 % 58.00/ min 18.00/min 128 62185 5 71.00 mm[Hg] - Sitting 126.00 mm[Hg] - Sitting 98.20 Tympanic 99.00 % 97.00/ min 18.00/min 129 83903 0 84.00 mm[Hg] - Sitting 145.00 mm[Hg] - Sitting 98.40 Tympanic 98.00 % 82.00/ min 18.00/min 130 96938 0 87.00 mm[Hg] - Sitting 144.00 mm[Hg] - Sitting 98.40 Forehead Scan 100.0 0% 75.00/ min 18.00/min 201 77716 8 98.00 Tympanic 73.00/ min 18.00/min 201 77668 9 64.00 mm[Hg] - Sitting 117.00 mm[Hg] - Sitting 201 58458 8 226.60 NI 201 61149 0 68.00 mm[Hg] - Sitting 116.00 mm[Hg] - Sitting 98.20 Forehead Scan 96.00 % 81.00/ min 18.00/min 202 07963 0 62.00 mm[Hg] - Sitting 111.00 mm[Hg] - Sitting 98.90 Tympanic 97.00 % 76.00/ min 18.00/min 203 08012 9 64.00 mm[Hg] - Sitting 118.00 mm[Hg] - Sitting 98.60 Forehead Scan 97.00 % 80.00/ min 18.00/min
--- OUTSIDE RECORDS SUMMARY | 2024-07-30 07:17 | External Medical Summary | Continuity Of Care Document ---
Author Name Unknown Address [address] [address] [facility] () Care Team Providers Care Bladder Trimmer Name Role Phone DO Mallory Amy Primary Care Provider [phone] Allergies Allergy Reaction Start Date End Date [...] 3 0.1 mL 07/08 Inactiv e 2023 08911 39134 0 1 time Intrad ermal False Tubersol 5 tub. unit/0.1 mL intradermal injection solution [Tuberculin PPD] 0.1mL Intradermal 1 time For PPD 2nd Step Give 2nd Step PPD Day 1 and Read results Day 3 (schedule 7 days after 1st READ) 0.1mL 07/08 Inactiv e 2023 42641 18636 0 1 time Intrad ermal False Tubersol 5 tub. unit/0.1 mL intradermal injection solution [Tuberculin PPD] 0.1 mL Intradermal 1 time For PPD Step 1 GIVE on Day 1 and read results Day 3 0.1 mL 07/10 Inactiv e 2023 75659 07189 0 1 time Intrad ermal False Tubersol 5 tub. unit/0.1 mL intradermal injection solution [Tuberculin PPD] 0.1mL Intradermal 1 time For PPD 2nd Step Give 2nd Step PPD Day 1 and Read results Day 3 (schedule 7 days after 1st READ) 0.1mL 07/19 Active 2023 28474 30727 0 1 time Intrad ermal False Tylenol 325 mg tablet 2 tabs By Mouth Every 4 hours as needed For Pain DO NOT EXCEED 3000 MG APAP/24 Hours 2 tabs 2023 Active 2023 13366 55003 0 Every 4 hours as needed By Mouth False Tylenol 325 mg tablet 2 tabs By Mouth Every 4 hours as needed For Fever >100 DO NOT EXCEED 3000 MG APAP/24 Hours 2 tabs 2023 Active 2023 46967 23389 0 Every 4 hours as needed By Mouth False Dulcolax (bisacodyl) 10 mg rectal suppository One Suppository per rectum PRN if Milk of Magnisia ineffective. Give on day 5 of no BM 1 sup 2023 Active 2023 24406 77931 1 Daily as needed Rectal False Fleet Enema 19 gram-7 gram/118 mL Administer per rectum PRN one time if dulcolax suppository not effective. Give on day 6 of no BM 1 2023 Active 2023 13365 39310 6 Daily as needed Rectal False Milk of Magnesia 400 mg/5 mL oral suspension [Magnesium hydroxide] PRN 30ml By Mouth Daily as needed for constipation one time daily if no BM, on day 4 of no BM (PRN refer to instructions) For Constipation 30 mL 07/08 Inactiv e 2023 34707 38328 6 Daily as needed By Mouth False Nitroglycer in 0.4 mg sublingual tablet [generic] PRN 0.4 mg Sublingual Every 5 minutes as needed Every 5 min PRN x 3 doses PRN chest pain and notify provider For Chest Pain 0.4 mg 2023 Active 2023 20856 44015 5 Every 5 minutes as needed Sublin gual False Aripiprazol e 5 mg tablet [generic] 1/2 Tab By Mouth Once daily For depression 1/2 Tab 2023 Active 2023 48136 66815 1 Once daily By Mouth False Escitalopra m 5 mg tablet [generic] 1 tablet By Mouth Once daily For depression 1 tablet 2023 Active 2023 47167 41907 1 Once daily By Mouth False Probiotic (B. coagulans) 1 billion cell chewable tablet 1 tablet By Mouth Once daily For supplement 1 tablet 2023 Active 2023 45910 75109 7 Once daily By Mouth False Memantine 10 mg tablet [generic] 1 tablet By Mouth Twice daily For alzheimers 1 tablet 2023 Active 2023 89055 55601 0 Twice daily By Mouth False Lidocaine 4 % topical patch [generic] 2 patches Topical - apply in the morning and remove at night For pain 2 patches 2023 Active 2023 46078 90155 0 Twice daily Topica l False Nystatin (bulk) 1 billion unit powder [generic] apply Topically twice daily to affected skin For fungal skin infection apply 2023 Active 2023 82614 83522 6 Twice daily Topica l False Nystatin (bulk) 1 billion unit powder [generic] apply Topical Twice daily For fungal skin breakdown apply 2023 Active 2023 90540 30494 6 Twice daily Topica l False Albuterol sulfate HFA 90 mcg/actuati on aerosol inhaler [generic] 2 puffs Inhalation Every 4 hours As Needed For COPD 2 puffs 07/11 Inactiv e 2023 23270 38455 2 Every 4 hours Inhala tion False Ascorbic acid (vitamin C) 1,000 mg capsule [generic] 1 tablet By Mouth Once daily For supplement 1 tablet 2023 Active 2023 23453 26346 2 Once daily By Mouth False Epinephrine 0.1 mg/mL injection syringe [generic] 1 dose Intramuscular As Needed for For anaphylaxis 1 dose 2023 Active 2023 12299 98841 1 Intram uscula r False Magnesium 64 mg (magnesium chloride) tablet,opal yed release [generic] 1 tablet By Mouth Twice daily For supplement 1 tablet 2023 Active 2023 29587 26106 6 Twice daily By Mouth False Multivitami n tablet [generic] 1 tablet By Mouth Once daily For supplement 1 tablet 2023 Active 2023 43439 84524 4 Once daily By Mouth False Senna 8.6 mg tablet 1 tablet By Mouth Once daily For constipation 1 tablet 2023 Active 2023 76461 49932 1 Once daily By Mouth False Solifenacin 5 mg tablet [generic] 1 tablet By Mouth Once daily For pulmonary hypertension 1 tablet 2023 Active 2023 06723 19723 0 Once daily By Mouth False Aspirin 81 mg tablet,opal yed release [generic] 1 tablet By Mouth Once daily For DVT prevention 1 tablet 2023 Active 2023 44076 00068 9 Once daily By Mouth False Cholecalcif emily (vitamin D3) 1,250 mcg (50,000 unit) capsule [generic] 1 tablet By Mouth Once daily For supplement 1 tablet 07/11 Inactiv e 2023 37383 30707 6 Once daily By Mouth False Cyanocobala min (vit B-12) 1,000 mcg tablet [generic] 1 tablet By Mouth Once daily For supplement 1 tablet 2023 Active 2023 86090 40709 5 Once daily By Mouth False Ferrous sulfate 325 mg (65 mg iron) tablet [generic] 1 tablet By Mouth Once daily For supplement 1 tablet 2023 Active 2023 48752 51912 5 Once daily By Mouth False Fludrocorti sone 0.1 mg tablet [generic] 1 tablet by mouth Once daily For adrenal insufficiency 1 tablet 2023 Active 2023 99517 38883 1 Once daily By Mouth False Omeprazole 20 mg capsule,del ayed release [generic] 1 tablet By Mouth Once daily before breakfast For GERD 1 tablet 2023 Active 2023 17360 32615 1 Once daily By Mouth False Trelegy Ellipta 100 mcg-62.5 mcg-25 mcg powder for inhalation 1 inhalation Inhalation Once daily For copd 1 inhalat ion 2023 Active 2023 61321 50935 0 Once daily Inhala tion False Hydrocortis one 20 mg tablet [generic] 1 tablet By Mouth Once daily For COPD 1 tablet 07/07 Inactiv e 2023 16965 01666 1 Once daily By Mouth False Hydrocortis one 10 mg tablet [generic] 1 tablet By Mouth Once daily in the afternoon - BE AWARE HYDROCORTISON E 20MG IN THE AM, 10MG in the afternoon For COPD 1 tablet 07/14 Inactiv e 2023 15365 85240 1 Once daily By Mouth False Hydrocortis one 20 mg tablet [generic] 07/07 Inactiv e 2023 89229 65739 1 Hydrocortis one 20 mg tablet [generic] 1 tablet By Mouth Once daily For COPD - BE AWARE HYDROCORTISON E 20MG IN THE AM, 10MG in the afternoon 1 tablet 2023 Active 2023 07051 75096 1 Once daily By Mouth False Miralax 17 gram/dose oral powder 17 gram By Mouth Once daily For Constipation 17 gram 2023 Active 2023 92975 18642 0 Once daily By Mouth False Myrbetriq 25 mg tablet,exte nded release 25 mg By Mouth Once daily For Bladder Spasms 25 mg 2023 Active 2023 13625 01086 7 Once daily By Mouth False Albuterol sulfate HFA 90 mcg/actuati on aerosol inhaler [generic] 2 puffs Inhalation Every 4 hours as needed For SOB/wheezing 2 puffs 2023 Active 2023 98062 20747 2 Every 4 hours as needed Inhala tion False Vitamin D3 125 mcg (5,000 unit) tablet 5000 unit By Mouth Once daily For Supplement 5000 unit 2023 Active 2023 67416 09060 8 Once daily By Mouth False Methocarbam ol 500 mg tablet [generic] 500 mg By Mouth Twice daily As Needed For Muscle spasms/ back pain 500 mg 2023 Active 2023 39575 84922 1 Twice daily By Mouth False Hydrocortis one 10 mg tablet [generic] 1 tablet By Mouth Once daily in the afternoon - BE AWARE HYDROCORTISON E 20MG IN THE AM, 10MG in the afternoon For COPD 1 tablet 2023 Active 2023 45275 00611 1 Once daily By Mouth False Problems [...] 07/07/2024 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 mother repairer paula diseases classified elsewhere 07/07/2024 Active K21.9 [...] Temperature SpO2 Blood Sugar Pulse Respirations 122 20010 0 68.00 mm[Hg] - Sitting 101.00 mm[Hg] - Sitting 72 NI 234.60 NI 98.20 Tympanic 98.00 % 85.00/ min 18.00/min 122 76799 6 70.00 mm[Hg] - Lying Down 110.00 mm[Hg] - Lying Down 97.80 Tympanic 84.00/ min 18.00/min 02097 123 69961 1 74.00 mm[Hg] - Lying Down 116.00 mm[Hg] - Lying Down 97.40 Tympanic 74.00/ min 18.00/min 58624 123 10834 4 74.00 mm[Hg] - Sitting 116.00 mm[Hg] - Sitting 97.40 Tympanic 74.00/ min 18.00/min 84685 123 89638 4 74.00 mm[Hg] - Sitting 116.00 mm[Hg] - Sitting 97.40 Tympanic 74.00/ min 18.00/min 66627 123 45476 5 82.00 mm[Hg] - Lying Down 153.00 mm[Hg] - Lying Down 98.00 Tympanic 98.00 % 71.00/ min 20.00/min 75589 123 23517 1 53629 124 31544 6 82.00 mm[Hg] - Lying Down 153.00 mm[Hg] - Lying Down 98.00 Tympanic 71.00/ min 20.00/min 83613 124 15277 5 82.00 mm[Hg] - Sitting 153.00 mm[Hg] - Sitting 98.00 Tympanic 71.00/ min 20.00/min 124 20329 0 62.00 mm[Hg] - Sitting 113.00 mm[Hg] - Sitting 97.80 Tympanic 72.00/ min 18.00/min 124 31219 0 62.00 mm[Hg] - Sitting 113.00 mm[Hg] - Sitting 97.80 Forehead Scan 95.00 % 72.00/ min 18.00/min 124 16708 5 77.00 mm[Hg] - Sitting 145.00 mm[Hg] - Sitting 125 55118 5 66.00 mm[Hg] - Sitting 120.00 mm[Hg] - Sitting 97.10 Tympanic 78.00/ min 18.00/min 125 81234 0 68.00 mm[Hg] - Sitting 101.00 mm[Hg] - Sitting 98.20 Tympanic 85.00/ min 18.00/min 125 39677 0 78.00 mm[Hg] - Sitting 141.00 mm[Hg] - Sitting 98.30 Forehead Scan 99.00 % 76.00/ min 18.00/min 125 57538 7 68.00 mm[Hg] - Sitting 121.00 mm[Hg] - Sitting 126 67126 7 82.00 mm[Hg] - Lying Down 169.00 mm[Hg] - Lying Down 98.10 Tympanic 97.00 % 84.00/ min 16.00/min 127 93407 6 75.00 mm[Hg] - Lying Down 144.00 mm[Hg] - Lying Down 98.30 Tympanic 99.00 % 58.00/ min 18.00/min 128 24702 5 71.00 mm[Hg] - Sitting 126.00 mm[Hg] - Sitting 98.20 Tympanic 99.00 % 97.00/ min 18.00/min 129 26477 0 84.00 mm[Hg] - Sitting 145.00 mm[Hg] - Sitting 98.40 Tympanic 98.00 % 82.00/ min 18.00/min 130 50982 0 87.00 mm[Hg] - Sitting 144.00 mm[Hg] - Sitting 98.40 Forehead Scan 100.0 0% 75.00/ min 18.00/min 201 58071 8 98.00 Tympanic 73.00/ min 18.00/min 201 69291 9 64.00 mm[Hg] - Sitting 117.00 mm[Hg] - Sitting 201 57542 8 226.60 NI 201 56435 0 68.00 mm[Hg] - Sitting 116.00 mm[Hg] - Sitting 98.20 Forehead Scan 96.00 % 81.00/ min 18.00/min 202 81030 0 62.00 mm[Hg] - Sitting 111.00 mm[Hg] - Sitting 98.90 Tympanic 97.00 % 76.00/ min 18.00/min 203 24553 9 64.00 mm[Hg] - Sitting 118.00 mm[Hg] - Sitting 98.60 Forehead Scan 97.00 % 80.00/ min 18.00/min
--- OUTSIDE RECORDS SUMMARY | 2024-07-30 07:17 | External Medical Summary | Continuity Of Care Document ---
Author Name Unknown Address [address] [address] Organization [facility] [place] () Care Team Providers Care Boring Machine Feeder Name Role Phone DO Mallory Amy Primary Care Provider [phone] Allergies Allergy Reaction Start Date End Date [...] 3 0.1 mL 07/08 Inactiv e 2023 96699 69860 0 1 time Intrad ermal False Tubersol 5 tub. unit/0.1 mL intradermal injection solution [Tuberculin PPD] 0.1mL Intradermal 1 time For PPD 2nd Step Give 2nd Step PPD Day 1 and Read results Day 3 (schedule 7 days after 1st READ) 0.1mL 07/08 Inactiv e 2023 98226 51233 0 1 time Intrad ermal False Tubersol 5 tub. unit/0.1 mL intradermal injection solution [Tuberculin PPD] 0.1 mL Intradermal 1 time For PPD Step 1 GIVE on Day 1 and read results Day 3 0.1 mL 07/10 Inactiv e 2023 77901 04922 0 1 time Intrad ermal False Tubersol 5 tub. unit/0.1 mL intradermal injection solution [Tuberculin PPD] 0.1mL Intradermal 1 time For PPD 2nd Step Give 2nd Step PPD Day 1 and Read results Day 3 (schedule 7 days after 1st READ) 0.1mL 07/19 Inactiv e 2023 77661 73421 0 1 time Intrad ermal False Tylenol 325 mg tablet 2 tabs By Mouth Every 4 hours as needed For Pain DO NOT EXCEED 3000 MG APAP/24 Hours 2 tabs 2023 Active 2023 07981 51042 0 Every 4 hours as needed By Mouth False Tylenol 325 mg tablet 2 tabs By Mouth Every 4 hours as needed For Fever >100 DO NOT EXCEED 3000 MG APAP/24 Hours 2 tabs 2023 Active 2023 74650 94043 0 Every 4 hours as needed By Mouth False Dulcolax (bisacodyl) 10 mg rectal suppository One Suppository per rectum PRN if Milk of Magnisia ineffective. Give on day 5 of no BM 1 sup 2023 Active 2023 89309 60113 1 Daily as needed Rectal False Fleet Enema 19 gram-7 gram/118 mL Administer per rectum PRN one time if dulcolax suppository not effective. Give on day 6 of no BM 1 2023 Active 2023 83716 76218 6 Daily as needed Rectal False Milk of Magnesia 400 mg/5 mL oral suspension [Magnesium hydroxide] PRN 30ml By Mouth Daily as needed for constipation one time daily if no BM, on day 4 of no BM (PRN refer to instructions) For Constipation 30 mL 07/08 Inactiv e 2023 72401 63743 6 Daily as needed By Mouth False Nitroglycer in 0.4 mg sublingual tablet [generic] PRN 0.4 mg Sublingual Every 5 minutes as needed Every 5 min PRN x 3 doses PRN chest pain and notify provider For Chest Pain 0.4 mg 2023 Active 2023 51559 13809 5 Every 5 minutes as needed Sublin gual False Aripiprazol e 5 mg tablet [generic] 1/2 Tab By Mouth Once daily For depression 1/2 Tab 2023 Active 2023 88289 41516 1 Once daily By Mouth False Escitalopra m 5 mg tablet [generic] 1 tablet By Mouth Once daily For depression 1 tablet 2023 Active 2023 20881 28570 1 Once daily By Mouth False Probiotic (B. coagulans) 1 billion cell chewable tablet 1 tablet By Mouth Once daily For supplement 1 tablet 2023 Active 2023 79105 72214 7 Once daily By Mouth False Memantine 10 mg tablet [generic] 1 tablet By Mouth Twice daily For alzheimers 1 tablet 2023 Active 2023 77720 25053 0 Twice daily By Mouth False Lidocaine 4 % topical patch [generic] 2 patches Topical - apply in the morning and remove at night For pain 2 patches 2023 Active 2023 81989 83411 0 Twice daily Topica l False Nystatin (bulk) 1 billion unit powder [generic] apply Topically twice daily to affected skin For fungal skin infection apply 2023 Active 2023 86978 39522 6 Twice daily Topica l False Nystatin (bulk) 1 billion unit powder [generic] apply Topical Twice daily For fungal skin breakdown apply 2023 Active 2023 54796 10956 6 Twice daily Topica l False Albuterol sulfate HFA 90 mcg/actuati on aerosol inhaler [generic] 2 puffs Inhalation Every 4 hours As Needed For COPD 2 puffs 07/11 Inactiv e 2023 02288 89924 2 Every 4 hours Inhala tion False Ascorbic acid (vitamin C) 1,000 mg capsule [generic] 1 tablet By Mouth Once daily For supplement 1 tablet 2023 Active 2023 08658 01469 2 Once daily By Mouth False Epinephrine 0.1 mg/mL injection syringe [generic] 1 dose Intramuscular As Needed for For anaphylaxis 1 dose 2023 Active 2023 87590 72251 1 Intram uscula r False Magnesium 64 mg (magnesium chloride) tablet,opal yed release [generic] 1 tablet By Mouth Twice daily For supplement 1 tablet 2023 Active 2023 53129 06804 6 Twice daily By Mouth False Multivitami n tablet [generic] 1 tablet By Mouth Once daily For supplement 1 tablet 2023 Active 2023 04805 00861 4 Once daily By Mouth False Senna 8.6 mg tablet 1 tablet By Mouth Once daily For constipation 1 tablet 2023 Active 2023 65999 35990 1 Once daily By Mouth False Solifenacin 5 mg tablet [generic] 1 tablet By Mouth Once daily For pulmonary hypertension 1 tablet 2023 Active 2023 27477 89291 0 Once daily By Mouth False Aspirin 81 mg tablet,opal yed release [generic] 1 tablet By Mouth Once daily For DVT prevention 1 tablet 2023 Active 2023 29060 00187 9 Once daily By Mouth False Cholecalcif emily (vitamin D3) 1,250 mcg (50,000 unit) capsule [generic] 1 tablet By Mouth Once daily For supplement 1 tablet 07/11 Inactiv e 2023 64091 10224 6 Once daily By Mouth False Cyanocobala min (vit B-12) 1,000 mcg tablet [generic] 1 tablet By Mouth Once daily For supplement 1 tablet 2023 Active 2023 23312 16234 5 Once daily By Mouth False Ferrous sulfate 325 mg (65 mg iron) tablet [generic] 1 tablet By Mouth Once daily For supplement 1 tablet 2023 Active 2023 14302 00555 5 Once daily By Mouth False Fludrocorti sone 0.1 mg tablet [generic] 1 tablet by mouth Once daily For adrenal insufficiency 1 tablet 2023 Active 2023 89222 97667 1 Once daily By Mouth False Omeprazole 20 mg capsule,del ayed release [generic] 1 tablet By Mouth Once daily before breakfast For GERD 1 tablet 2023 Active 2023 40691 97079 1 Once daily By Mouth False Trelegy Ellipta 100 mcg-62.5 mcg-25 mcg powder for inhalation 1 inhalation Inhalation Once daily For copd 1 inhalat ion 2023 Active 2023 49612 71276 0 Once daily Inhala tion False Hydrocortis one 20 mg tablet [generic] 1 tablet By Mouth Once daily For COPD 1 tablet 07/07 Inactiv e 2023 94433 05176 1 Once daily By Mouth False Hydrocortis one 10 mg tablet [generic] 1 tablet By Mouth Once daily in the afternoon - BE AWARE HYDROCORTISON E 20MG IN THE AM, 10MG in the afternoon For COPD 1 tablet 07/14 Inactiv e 2023 72422 56836 1 Once daily By Mouth False Hydrocortis one 20 mg tablet [generic] 07/07 Inactiv e 2023 53122 16936 1 Hydrocortis one 20 mg tablet [generic] 1 tablet By Mouth Once daily For COPD - BE AWARE HYDROCORTISON E 20MG IN THE AM, 10MG in the afternoon 1 tablet 2023 Active 2023 13089 75362 1 Once daily By Mouth False Miralax 17 gram/dose oral powder 17 gram By Mouth Once daily For Constipation 17 gram 2023 Active 2023 83819 24598 0 Once daily By Mouth False Myrbetriq 25 mg tablet,exte nded release 25 mg By Mouth Once daily For Bladder Spasms 25 mg 2023 Active 2023 94674 32874 7 Once daily By Mouth False Albuterol sulfate HFA 90 mcg/actuati on aerosol inhaler [generic] 2 puffs Inhalation Every 4 hours as needed For SOB/wheezing 2 puffs 2023 Active 2023 99288 34326 2 Every 4 hours as needed Inhala tion False Vitamin D3 125 mcg (5,000 unit) tablet 5000 unit By Mouth Once daily For Supplement 5000 unit 2023 Active 2023 51868 36759 8 Once daily By Mouth False Methocarbam ol 500 mg tablet [generic] 500 mg By Mouth Twice daily As Needed For Muscle spasms/ back pain 500 mg 2023 Active 2023 37486 10632 1 Twice daily By Mouth False Hydrocortis one 10 mg tablet [generic] 1 tablet By Mouth Once daily in the afternoon - BE AWARE HYDROCORTISON E 20MG IN THE AM, 10MG in the afternoon For COPD 1 tablet 2023 Active 2023 47441 10196 1 Once daily By Mouth False Problems [...] 07/07/2024 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 chronic condition nurse paula diseases classified elsewhere 07/07/2024 Active K21.9 [...] Temperature SpO2 Blood Sugar Pulse Respirations 122 61757 0 68.00 mm[Hg] - Sitting 101.00 mm[Hg] - Sitting 72 NI 234.60 NI 98.20 Tympanic 98.00 % 85.00/ min 18.00/min 122 40456 6 70.00 mm[Hg] - Lying Down 110.00 mm[Hg] - Lying Down 97.80 Tympanic 84.00/ min 18.00/min 71969 123 27285 1 74.00 mm[Hg] - Lying Down 116.00 mm[Hg] - Lying Down 97.40 Tympanic 74.00/ min 18.00/min 38298 123 93906 4 74.00 mm[Hg] - Sitting 116.00 mm[Hg] - Sitting 97.40 Tympanic 74.00/ min 18.00/min 49241 123 68921 4 74.00 mm[Hg] - Sitting 116.00 mm[Hg] - Sitting 97.40 Tympanic 74.00/ min 18.00/min 57153 123 72940 5 82.00 mm[Hg] - Lying Down 153.00 mm[Hg] - Lying Down 98.00 Tympanic 98.00 % 71.00/ min 20.00/min 84611 123 28216 1 68852 124 34096 6 82.00 mm[Hg] - Lying Down 153.00 mm[Hg] - Lying Down 98.00 Tympanic 71.00/ min 20.00/min 55543 124 58262 5 82.00 mm[Hg] - Sitting 153.00 mm[Hg] - Sitting 98.00 Tympanic 71.00/ min 20.00/min 124 63350 0 62.00 mm[Hg] - Sitting 113.00 mm[Hg] - Sitting 97.80 Tympanic 72.00/ min 18.00/min 124 24674 0 62.00 mm[Hg] - Sitting 113.00 mm[Hg] - Sitting 97.80 Forehead Scan 95.00 % 72.00/ min 18.00/min 124 33511 5 77.00 mm[Hg] - Sitting 145.00 mm[Hg] - Sitting 125 41783 5 66.00 mm[Hg] - Sitting 120.00 mm[Hg] - Sitting 97.10 Tympanic 78.00/ min 18.00/min 125 54584 0 68.00 mm[Hg] - Sitting 101.00 mm[Hg] - Sitting 98.20 Tympanic 85.00/ min 18.00/min 125 08002 0 78.00 mm[Hg] - Sitting 141.00 mm[Hg] - Sitting 98.30 Forehead Scan 99.00 % 76.00/ min 18.00/min 125 51173 7 68.00 mm[Hg] - Sitting 121.00 mm[Hg] - Sitting 126 94619 7 82.00 mm[Hg] - Lying Down 169.00 mm[Hg] - Lying Down 98.10 Tympanic 97.00 % 84.00/ min 16.00/min 49031 127 93351 6 75.00 mm[Hg] - Lying Down 144.00 mm[Hg] - Lying Down 98.30 Tympanic 99.00 % 58.00/ min 18.00/min 128 45483 5 71.00 mm[Hg] - Sitting 126.00 mm[Hg] - Sitting 98.20 Tympanic 99.00 % 97.00/ min 18.00/min 129 48827 0 84.00 mm[Hg] - Sitting 145.00 mm[Hg] - Sitting 98.40 Tympanic 98.00 % 82.00/ min 18.00/min 130 11264 0 87.00 mm[Hg] - Sitting 144.00 mm[Hg] - Sitting 98.40 Forehead Scan 100.0 0% 75.00/ min 18.00/min 52907 201 13401 8 98.00 Tympanic 73.00/ min 18.00/min 201 12714 9 64.00 mm[Hg] - Sitting 117.00 mm[Hg] - Sitting 201 74133 8 226.60 NI 201 72999 0 68.00 mm[Hg] - Sitting 116.00 mm[Hg] - Sitting 98.20 Forehead Scan 96.00 % 81.00/ min 18.00/min 202 19217 0 62.00 mm[Hg] - Sitting 111.00 mm[Hg] - Sitting 98.90 Tympanic 97.00 % 76.00/ min 18.00/min 203 54947 9 64.00 mm[Hg] - Sitting 118.00 mm[Hg] - Sitting 98.60 Forehead Scan 97.00 % 80.00/ min 18.00/min 203 08993 5 80.00 mm[Hg] - Sitting 170.00 mm[Hg] - Sitting 98.30 Tympanic 99.00 % 68.00/ min 18.00/min 203 12401 0 78.00 mm[Hg] - Sitting 148.00 mm[Hg] - Sitting
--- OUTSIDE RECORDS SUMMARY | 2024-07-30 07:18 | External Medical Summary | Continuity Of Care Document ---
Author Name Unknown Address [address] [address] Organization [facility] [place] () Care Team Providers Care Chief Guard Name Role Phone DO Mallory Amy Primary Care Provider [phone] Allergies Allergy Reaction Start Date End Date [...] 3 0.1 mL 07/08 Inactiv e 2023 63057 67322 0 1 time Intrad ermal False Tubersol 5 tub. unit/0.1 mL intradermal injection solution [Tuberculin PPD] 0.1mL Intradermal 1 time For PPD 2nd Step Give 2nd Step PPD Day 1 and Read results Day 3 (schedule 7 days after 1st READ) 0.1mL 07/08 Inactiv e 2023 57352 72308 0 1 time Intrad ermal False Tubersol 5 tub. unit/0.1 mL intradermal injection solution [Tuberculin PPD] 0.1 mL Intradermal 1 time For PPD Step 1 GIVE on Day 1 and read results Day 3 0.1 mL 07/10 Inactiv e 2023 77288 59699 0 1 time Intrad ermal False Tubersol 5 tub. unit/0.1 mL intradermal injection solution [Tuberculin PPD] 0.1mL Intradermal 1 time For PPD 2nd Step Give 2nd Step PPD Day 1 and Read results Day 3 (schedule 7 days after 1st READ) 0.1mL 07/19 Active 2023 43320 48552 0 1 time Intrad ermal False Tylenol 325 mg tablet 2 tabs By Mouth Every 4 hours as needed For Pain DO NOT EXCEED 3000 MG APAP/24 Hours 2 tabs 2023 Active 2023 03679 01051 0 Every 4 hours as needed By Mouth False Tylenol 325 mg tablet 2 tabs By Mouth Every 4 hours as needed For Fever >100 DO NOT EXCEED 3000 MG APAP/24 Hours 2 tabs 2023 Active 2023 25454 61557 0 Every 4 hours as needed By Mouth False Dulcolax (bisacodyl) 10 mg rectal suppository One Suppository per rectum PRN if Milk of Magnisia ineffective. Give on day 5 of no BM 1 sup 2023 Active 2023 09724 44698 1 Daily as needed Rectal False Fleet Enema 19 gram-7 gram/118 mL Administer per rectum PRN one time if dulcolax suppository not effective. Give on day 6 of no BM 1 2023 Active 2023 30955 59887 6 Daily as needed Rectal False Milk of Magnesia 400 mg/5 mL oral suspension [Magnesium hydroxide] PRN 30ml By Mouth Daily as needed for constipation one time daily if no BM, on day 4 of no BM (PRN refer to instructions) For Constipation 30 mL 07/08 Inactiv e 2023 72903 49247 6 Daily as needed By Mouth False Nitroglycer in 0.4 mg sublingual tablet [generic] PRN 0.4 mg Sublingual Every 5 minutes as needed Every 5 min PRN x 3 doses PRN chest pain and notify provider For Chest Pain 0.4 mg 2023 Active 2023 22325 51807 5 Every 5 minutes as needed Sublin gual False Aripiprazol e 5 mg tablet [generic] 1/2 Tab By Mouth Once daily For depression 1/2 Tab 2023 Active 2023 20501 42796 1 Once daily By Mouth False Escitalopra m 5 mg tablet [generic] 1 tablet By Mouth Once daily For depression 1 tablet 2023 Active 2023 04146 09425 1 Once daily By Mouth False Probiotic (B. coagulans) 1 billion cell chewable tablet 1 tablet By Mouth Once daily For supplement 1 tablet 2023 Active 2023 38680 94283 7 Once daily By Mouth False Memantine 10 mg tablet [generic] 1 tablet By Mouth Twice daily For alzheimers 1 tablet 2023 Active 2023 77546 58795 0 Twice daily By Mouth False Lidocaine 4 % topical patch [generic] 2 patches Topical - apply in the morning and remove at night For pain 2 patches 2023 Active 2023 29504 88787 0 Twice daily Topica l False Nystatin (bulk) 1 billion unit powder [generic] apply Topically twice daily to affected skin For fungal skin infection apply 2023 Active 2023 17228 98022 6 Twice daily Topica l False Nystatin (bulk) 1 billion unit powder [generic] apply Topical Twice daily For fungal skin breakdown apply 2023 Active 2023 63033 41189 6 Twice daily Topica l False Albuterol sulfate HFA 90 mcg/actuati on aerosol inhaler [generic] 2 puffs Inhalation Every 4 hours As Needed For COPD 2 puffs 2023 Active 2023 21018 17654 2 Every 4 hours Inhala tion False Ascorbic acid (vitamin C) 1,000 mg capsule [generic] 1 tablet By Mouth Once daily For supplement 1 tablet 2023 Active 2023 84434 58603 2 Once daily By Mouth False Epinephrine 0.1 mg/mL injection syringe [generic] 1 dose Intramuscular As Needed for For anaphylaxis 1 dose 2023 Active 2023 88666 16909 1 Intram uscula r False Magnesium 64 mg (magnesium chloride) tablet,opal yed release [generic] 1 tablet By Mouth Twice daily For supplement 1 tablet 2023 Active 2023 52129 74794 6 Twice daily By Mouth False Multivitami n tablet [generic] 1 tablet By Mouth Once daily For supplement 1 tablet 2023 Active 2023 28542 03015 4 Once daily By Mouth False Senna 8.6 mg tablet 1 tablet By Mouth Once daily For constipation 1 tablet 2023 Active 2023 97877 17741 1 Once daily By Mouth False Solifenacin 5 mg tablet [generic] 1 tablet By Mouth Once daily For pulmonary hypertension 1 tablet 2023 Active 2023 17580 81076 0 Once daily By Mouth False Aspirin 81 mg tablet,opal yed release [generic] 1 tablet By Mouth Once daily For DVT prevention 1 tablet 2023 Active 2023 48623 92622 9 Once daily By Mouth False Cholecalcif emily (vitamin D3) 1,250 mcg (50,000 unit) capsule [generic] 1 tablet By Mouth Once daily For supplement 1 tablet 2023 Active 2023 82107 52335 6 Once daily By Mouth False Cyanocobala min (vit B-12) 1,000 mcg tablet [generic] 1 tablet By Mouth Once daily For supplement 1 tablet 2023 Active 2023 20485 64342 5 Once daily By Mouth False Ferrous sulfate 325 mg (65 mg iron) tablet [generic] 1 tablet By Mouth Once daily For supplement 1 tablet 2023 Active 2023 44635 93017 5 Once daily By Mouth False Fludrocorti sone 0.1 mg tablet [generic] 1 tablet by mouth Once daily For adrenal insufficiency 1 tablet 2023 Active 2023 47585 29630 1 Once daily By Mouth False Omeprazole 20 mg capsule,del ayed release [generic] 1 tablet By Mouth Once daily before breakfast For GERD 1 tablet 2023 Active 2023 87105 04764 1 Once daily By Mouth False Trelegy Ellipta 100 mcg-62.5 mcg-25 mcg powder for inhalation 1 inhalation Inhalation Once daily For copd 1 inhalat ion 2023 Active 2023 86300 85242 0 Once daily Inhala tion False Hydrocortis one 20 mg tablet [generic] 1 tablet By Mouth Once daily For COPD 1 tablet 07/07 Inactiv e 2023 44515 75932 1 Once daily By Mouth False Hydrocortis one 10 mg tablet [generic] 1 tablet By Mouth Once daily in the afternoon - BE AWARE HYDROCORTISON E 20MG IN THE AM, 10MG in the afternoon For COPD 1 tablet 2023 Active 2023 18684 86407 1 Once daily By Mouth False Hydrocortis one 20 mg tablet [generic] 07/07 Inactiv e 2023 04224 08536 1 Hydrocortis one 20 mg tablet [generic] 1 tablet By Mouth Once daily For COPD - BE AWARE HYDROCORTISON E 20MG IN THE AM, 10MG in the afternoon 1 tablet 2023 Active 2023 62882 81848 1 Once daily By Mouth False Miralax 17 gram/dose oral powder 17 gram By Mouth Once daily For Constipation 17 gram 2023 Active 2023 15321 72913 0 Once daily By Mouth False Problems Code Description Start Date End Date Status A41.9 Sepsis, unspecified organism 07/07/2024 0000/0 000 Active VITAL SIGNS Date Time Diastolic blood pressure Systolic blood pressure Body height Body weight Temperature SpO2 Blood Sugar Pulse Respirations 122 82333 0 68.00 mm[Hg] - Sitting 101.00 mm[Hg] - Sitting 72 NI 234.60 NI 98.20 Tympanic 98.00 % 85.00/ min 18.00/min 122 34894 6 70.00 mm[Hg] - Lying Down 110.00 mm[Hg] - Lying Down 97.80 Tympanic 84.00/ min 18.00/min 123 07582 1 74.00 mm[Hg] - Lying Down 116.00 mm[Hg] - Lying Down 97.40 Tympanic 74.00/ min 18.00/min 123 22984 4 74.00 mm[Hg] - Sitting 116.00 mm[Hg] - Sitting 97.40 Tympanic 74.00/ min 18.00/min 123 70378 4 74.00 mm[Hg] - Sitting 116.00 mm[Hg] - Sitting 97.40 Tympanic 74.00/ min 18.00/min 123 59898 5 82.00 mm[Hg] - Lying Down 153.00 mm[Hg] - Lying Down 98.00 Tympanic 98.00 % 71.00/ min 20.00/min 123 91183 1 67302 124 38277 6 82.00 mm[Hg] - Lying Down 153.00 mm[Hg] - Lying Down 98.00 Tympanic 71.00/ min 20.00/min 124 71602 5 82.00 mm[Hg] - Sitting 153.00 mm[Hg] - Sitting 98.00 Tympanic 71.00/ min 20.00/min 124 73530 0 62.00 mm[Hg] - Sitting 113.00 mm[Hg] - Sitting 97.80 Tympanic 72.00/ min 18.00/min 124 93185 0 62.00 mm[Hg] - Sitting 113.00 mm[Hg] - Sitting 97.80 Forehead Scan 95.00 % 72.00/ min 18.00/min 124 63724 5 77.00 mm[Hg] - Sitting 145.00 mm[Hg] - Sitting 125 64854 5 66.00 mm[Hg] - Sitting 120.00 mm[Hg] - Sitting 97.10 Tympanic 78.00/ min 18.00/min
--- OUTSIDE RECORDS SUMMARY | 2024-07-30 07:18 | External Medical Summary | Continuity Of Care Document ---
Author Name Unknown Address [address] [address] [facility] () Care Team Providers Care Production Aide Name Role Phone DO Mallory Amy Primary Care Provider [phone] Allergies Allergy Reaction Start Date End Date [...] 3 0.1 mL 07/08 Inactiv e 2023 62002 90691 0 1 time Intrad ermal False Tubersol 5 tub. unit/0.1 mL intradermal injection solution [Tuberculin PPD] 0.1mL Intradermal 1 time For PPD 2nd Step Give 2nd Step PPD Day 1 and Read results Day 3 (schedule 7 days after 1st READ) 0.1mL 07/08 Inactiv e 2023 12206 46408 0 1 time Intrad ermal False Tubersol 5 tub. unit/0.1 mL intradermal injection solution [Tuberculin PPD] 0.1 mL Intradermal 1 time For PPD Step 1 GIVE on Day 1 and read results Day 3 0.1 mL 07/10 Inactiv e 2023 12547 08807 0 1 time Intrad ermal False Tubersol 5 tub. unit/0.1 mL intradermal injection solution [Tuberculin PPD] 0.1mL Intradermal 1 time For PPD 2nd Step Give 2nd Step PPD Day 1 and Read results Day 3 (schedule 7 days after 1st READ) 0.1mL 07/19 Active 2023 53218 31945 0 1 time Intrad ermal False Tylenol 325 mg tablet 2 tabs By Mouth Every 4 hours as needed For Pain DO NOT EXCEED 3000 MG APAP/24 Hours 2 tabs 2023 Active 2023 78750 39671 0 Every 4 hours as needed By Mouth False Tylenol 325 mg tablet 2 tabs By Mouth Every 4 hours as needed For Fever >100 DO NOT EXCEED 3000 MG APAP/24 Hours 2 tabs 2023 Active 2023 77593 44846 0 Every 4 hours as needed By Mouth False Dulcolax (bisacodyl) 10 mg rectal suppository One Suppository per rectum PRN if Milk of Magnisia ineffective. Give on day 5 of no BM 1 sup 2023 Active 2023 59705 83326 1 Daily as needed Rectal False Fleet Enema 19 gram-7 gram/118 mL Administer per rectum PRN one time if dulcolax suppository not effective. Give on day 6 of no BM 1 2023 Active 2023 85073 71657 6 Daily as needed Rectal False Milk of Magnesia 400 mg/5 mL oral suspension [Magnesium hydroxide] PRN 30ml By Mouth Daily as needed for constipation one time daily if no BM, on day 4 of no BM (PRN refer to instructions) For Constipation 30 mL 07/08 Inactiv e 2023 25815 44412 6 Daily as needed By Mouth False Nitroglycer in 0.4 mg sublingual tablet [generic] PRN 0.4 mg Sublingual Every 5 minutes as needed Every 5 min PRN x 3 doses PRN chest pain and notify provider For Chest Pain 0.4 mg 2023 Active 2023 44899 49413 5 Every 5 minutes as needed Sublin gual False Aripiprazol e 5 mg tablet [generic] 1/2 Tab By Mouth Once daily For depression 1/2 Tab 2023 Active 2023 19012 73278 1 Once daily By Mouth False Escitalopra m 5 mg tablet [generic] 1 tablet By Mouth Once daily For depression 1 tablet 2023 Active 2023 62786 19687 1 Once daily By Mouth False Probiotic (B. coagulans) 1 billion cell chewable tablet 1 tablet By Mouth Once daily For supplement 1 tablet 2023 Active 2023 92762 82473 7 Once daily By Mouth False Memantine 10 mg tablet [generic] 1 tablet By Mouth Twice daily For alzheimers 1 tablet 2023 Active 2023 33181 23979 0 Twice daily By Mouth False Lidocaine 4 % topical patch [generic] 2 patches Topical - apply in the morning and remove at night For pain 2 patches 2023 Active 2023 90965 98882 0 Twice daily Topica l False Nystatin (bulk) 1 billion unit powder [generic] apply Topically twice daily to affected skin For fungal skin infection apply 2023 Active 2023 94518 07469 6 Twice daily Topica l False Nystatin (bulk) 1 billion unit powder [generic] apply Topical Twice daily For fungal skin breakdown apply 2023 Active 2023 79872 23119 6 Twice daily Topica l False Albuterol sulfate HFA 90 mcg/actuati on aerosol inhaler [generic] 2 puffs Inhalation Every 4 hours As Needed For COPD 2 puffs 2023 Active 2023 09353 07449 2 Every 4 hours Inhala tion False Ascorbic acid (vitamin C) 1,000 mg capsule [generic] 1 tablet By Mouth Once daily For supplement 1 tablet 2023 Active 2023 87517 42781 2 Once daily By Mouth False Epinephrine 0.1 mg/mL injection syringe [generic] 1 dose Intramuscular As Needed for For anaphylaxis 1 dose 2023 Active 2023 12050 44901 1 Intram uscula r False Magnesium 64 mg (magnesium chloride) tablet,opal yed release [generic] 1 tablet By Mouth Twice daily For supplement 1 tablet 2023 Active 2023 78009 61759 6 Twice daily By Mouth False Multivitami n tablet [generic] 1 tablet By Mouth Once daily For supplement 1 tablet 2023 Active 2023 78865 89567 4 Once daily By Mouth False Senna 8.6 mg tablet 1 tablet By Mouth Once daily For constipation 1 tablet 2023 Active 2023 29192 00888 1 Once daily By Mouth False Solifenacin 5 mg tablet [generic] 1 tablet By Mouth Once daily For pulmonary hypertension 1 tablet 2023 Active 2023 52606 20983 0 Once daily By Mouth False Aspirin 81 mg tablet,opal yed release [generic] 1 tablet By Mouth Once daily For DVT prevention 1 tablet 2023 Active 2023 87095 59108 9 Once daily By Mouth False Cholecalcif emily (vitamin D3) 1,250 mcg (50,000 unit) capsule [generic] 1 tablet By Mouth Once daily For supplement 1 tablet 2023 Active 2023 02395 76475 6 Once daily By Mouth False Cyanocobala min (vit B-12) 1,000 mcg tablet [generic] 1 tablet By Mouth Once daily For supplement 1 tablet 2023 Active 2023 36846 80128 5 Once daily By Mouth False Ferrous sulfate 325 mg (65 mg iron) tablet [generic] 1 tablet By Mouth Once daily For supplement 1 tablet 2023 Active 2023 20148 96291 5 Once daily By Mouth False Fludrocorti sone 0.1 mg tablet [generic] 1 tablet by mouth Once daily For adrenal insufficiency 1 tablet 2023 Active 2023 42645 30505 1 Once daily By Mouth False Omeprazole 20 mg capsule,del ayed release [generic] 1 tablet By Mouth Once daily before breakfast For GERD 1 tablet 2023 Active 2023 04899 36354 1 Once daily By Mouth False Trelegy Ellipta 100 mcg-62.5 mcg-25 mcg powder for inhalation 1 inhalation Inhalation Once daily For copd 1 inhalat ion 2023 Active 2023 95238 09442 0 Once daily Inhala tion False Hydrocortis one 20 mg tablet [generic] 1 tablet By Mouth Once daily For COPD 1 tablet 07/07 Inactiv e 2023 43167 42148 1 Once daily By Mouth False Hydrocortis one 10 mg tablet [generic] 1 tablet By Mouth Once daily in the afternoon - BE AWARE HYDROCORTISON E 20MG IN THE AM, 10MG in the afternoon For COPD 1 tablet 2023 Active 2023 91798 34616 1 Once daily By Mouth False Hydrocortis one 20 mg tablet [generic] 07/07 Inactiv e 2023 33509 39351 1 Hydrocortis one 20 mg tablet [generic] 1 tablet By Mouth Once daily For COPD - BE AWARE HYDROCORTISON E 20MG IN THE AM, 10MG in the afternoon 1 tablet 2023 Active 2023 75045 86647 1 Once daily By Mouth False Miralax 17 gram/dose oral powder 17 gram By Mouth Once daily For Constipation 17 gram 2023 Active 2023 18806 71666 0 Once daily By Mouth False VITAL SIGNS Date Time Diastolic blood pressure Systolic blood pressure Body height Body weight Temperature SpO2 Blood Sugar Pulse Respirations 122 50934 0 68.00 mm[Hg] - Sitting 101.00 mm[Hg] - Sitting 72 NI 234.60 NI 98.20 Tympanic 98.00 % 85.00/ min 18.00/min 122 66814 6 70.00 mm[Hg] - Lying Down 110.00 mm[Hg] - Lying Down 97.80 Tympanic 84.00/ min 18.00/min 123 35038 1 74.00 mm[Hg] - Lying Down 116.00 mm[Hg] - Lying Down 97.40 Tympanic 74.00/ min 18.00/min 123 97195 4 74.00 mm[Hg] - Sitting 116.00 mm[Hg] - Sitting 97.40 Tympanic 74.00/ min 18.00/min 123 06419 4 74.00 mm[Hg] - Sitting 116.00 mm[Hg] - Sitting 97.40 Tympanic 74.00/ min 18.00/min 123 26890 5 82.00 mm[Hg] - Lying Down 153.00 mm[Hg] - Lying Down 98.00 Tympanic 98.00 % 71.00/ min 20.00/min 123 71847 1 47825 124 94762 6 82.00 mm[Hg] - Lying Down 153.00 mm[Hg] - Lying Down 98.00 Tympanic 71.00/ min 20.00/min 124 84385 5 82.00 mm[Hg] - Sitting 153.00 mm[Hg] - Sitting 98.00 Tympanic 71.00/ min 20.00/min 124 40974 0 62.00 mm[Hg] - Sitting 113.00 mm[Hg] - Sitting 97.80 Tympanic 72.00/ min 18.00/min 124 76774 0 62.00 mm[Hg] - Sitting 113.00 mm[Hg] - Sitting 97.80 Forehead Scan 95.00 % 72.00/ min 18.00/min 124 64811 5 77.00 mm[Hg] - Sitting 145.00 mm[Hg] - Sitting 125 07885 5 66.00 mm[Hg] - Sitting 120.00 mm[Hg] - Sitting 97.10 Tympanic 78.00/ min 18.00/min
--- OUTSIDE RECORDS SUMMARY | 2024-07-30 07:18 | External Medical Summary | Continuity Of Care Document ---
Author Name Unknown Address [address] [address] Organization [facility] () Care Team Providers Care Warehouse Selector Name Role Phone DO Mallory Amy Primary Care Provider [phone] Allergies Allergy Reaction Start Date End Date [...] 3 0.1 mL 07/08 Inactiv e 2023 88629 81610 0 1 time Intrad ermal False Tubersol 5 tub. unit/0.1 mL intradermal injection solution [Tuberculin PPD] 0.1mL Intradermal 1 time For PPD 2nd Step Give 2nd Step PPD Day 1 and Read results Day 3 (schedule 7 days after 1st READ) 0.1mL 07/08 Inactiv e 2023 07574 25480 0 1 time Intrad ermal False Tubersol 5 tub. unit/0.1 mL intradermal injection solution [Tuberculin PPD] 0.1 mL Intradermal 1 time For PPD Step 1 GIVE on Day 1 and read results Day 3 0.1 mL 07/10 Active 2023 44180 71511 0 1 time Intrad ermal False Tubersol 5 tub. unit/0.1 mL intradermal injection solution [Tuberculin PPD] 0.1mL Intradermal 1 time For PPD 2nd Step Give 2nd Step PPD Day 1 and Read results Day 3 (schedule 7 days after 1st READ) 0.1mL 07/19 Active 2023 33968 18722 0 1 time Intrad ermal False Tylenol 325 mg tablet 2 tabs By Mouth Every 4 hours as needed For Pain DO NOT EXCEED 3000 MG APAP/24 Hours 2 tabs 2023 Active 2023 55459 16419 0 Every 4 hours as needed By Mouth False Tylenol 325 mg tablet 2 tabs By Mouth Every 4 hours as needed For Fever >100 DO NOT EXCEED 3000 MG APAP/24 Hours 2 tabs 2023 Active 2023 19935 26624 0 Every 4 hours as needed By Mouth False Dulcolax (bisacodyl) 10 mg rectal suppository One Suppository per rectum PRN if Milk of Magnisia ineffective. Give on day 5 of no BM 1 sup 2023 Active 2023 10412 21449 1 Daily as needed Rectal False Fleet Enema 19 gram-7 gram/118 mL Administer per rectum PRN one time if dulcolax suppository not effective. Give on day 6 of no BM 1 2023 Active 2023 13589 31141 6 Daily as needed Rectal False Milk of Magnesia 400 mg/5 mL oral suspension [Magnesium hydroxide] PRN 30ml By Mouth Daily as needed for constipation one time daily if no BM, on day 4 of no BM (PRN refer to instructions) For Constipation 30 mL 07/08 Inactiv e 2023 73106 57780 6 Daily as needed By Mouth False Nitroglycer in 0.4 mg sublingual tablet [generic] PRN 0.4 mg Sublingual Every 5 minutes as needed Every 5 min PRN x 3 doses PRN chest pain and notify provider For Chest Pain 0.4 mg 2023 Active 2023 63063 52668 5 Every 5 minutes as needed Sublin gual False Aripiprazol e 5 mg tablet [generic] 1/2 Tab By Mouth Once daily For depression 1/2 Tab 2023 Active 2023 88453 28586 1 Once daily By Mouth False Escitalopra m 5 mg tablet [generic] 1 tablet By Mouth Once daily For depression 1 tablet 2023 Active 2023 54474 09759 1 Once daily By Mouth False Probiotic (B. coagulans) 1 billion cell chewable tablet 1 tablet By Mouth Once daily For supplement 1 tablet 2023 Active 2023 75613 03467 7 Once daily By Mouth False Memantine 10 mg tablet [generic] 1 tablet By Mouth Twice daily For alzheimers 1 tablet 2023 Active 2023 35883 47237 0 Twice daily By Mouth False Lidocaine 4 % topical patch [generic] 2 patches Topical - apply in the morning and remove at night For pain 2 patches 2023 Active 2023 94707 14887 0 Twice daily Topica l False Nystatin (bulk) 1 billion unit powder [generic] apply Topically twice daily to affected skin For fungal skin infection apply 2023 Active 2023 29863 45927 6 Twice daily Topica l False Nystatin (bulk) 1 billion unit powder [generic] apply Topical Twice daily For fungal skin breakdown apply 2023 Active 2023 45420 21951 6 Twice daily Topica l False Albuterol sulfate HFA 90 mcg/actuati on aerosol inhaler [generic] 2 puffs Inhalation Every 4 hours As Needed For COPD 2 puffs 2023 Active 2023 92183 60950 2 Every 4 hours Inhala tion False Ascorbic acid (vitamin C) 1,000 mg capsule [generic] 1 tablet By Mouth Once daily For supplement 1 tablet 2023 Active 2023 87536 51800 2 Once daily By Mouth False Epinephrine 0.1 mg/mL injection syringe [generic] 1 dose Intramuscular As Needed for For anaphylaxis 1 dose 2023 Active 2023 62048 15040 1 Intram uscula r False Magnesium 64 mg (magnesium chloride) tablet,opal yed release [generic] 1 tablet By Mouth Twice daily For supplement 1 tablet 2023 Active 2023 81135 11845 6 Twice daily By Mouth False Multivitami n tablet [generic] 1 tablet By Mouth Once daily For supplement 1 tablet 2023 Active 2023 28061 03017 4 Once daily By Mouth False Senna 8.6 mg tablet 1 tablet By Mouth Once daily For constipation 1 tablet 2023 Active 2023 05360 10613 1 Once daily By Mouth False Solifenacin 5 mg tablet [generic] 1 tablet By Mouth Once daily For pulmonary hypertension 1 tablet 2023 Active 2023 60929 24368 0 Once daily By Mouth False Aspirin 81 mg tablet,opal yed release [generic] 1 tablet By Mouth Once daily For DVT prevention 1 tablet 2023 Active 2023 36507 58802 9 Once daily By Mouth False Cholecalcif emily (vitamin D3) 1,250 mcg (50,000 unit) capsule [generic] 1 tablet By Mouth Once daily For supplement 1 tablet 2023 Active 2023 26973 79969 6 Once daily By Mouth False Cyanocobala min (vit B-12) 1,000 mcg tablet [generic] 1 tablet By Mouth Once daily For supplement 1 tablet 2023 Active 2023 30002 74816 5 Once daily By Mouth False Ferrous sulfate 325 mg (65 mg iron) tablet [generic] 1 tablet By Mouth Once daily For supplement 1 tablet 2023 Active 2023 85680 40397 5 Once daily By Mouth False Fludrocorti sone 0.1 mg tablet [generic] 1 tablet by mouth Once daily For adrenal insufficiency 1 tablet 2023 Active 2023 74825 40656 1 Once daily By Mouth False Omeprazole 20 mg capsule,del ayed release [generic] 1 tablet By Mouth Once daily before breakfast For GERD 1 tablet 2023 Active 2023 20078 13827 1 Once daily By Mouth False Trelegy Ellipta 100 mcg-62.5 mcg-25 mcg powder for inhalation 1 inhalation Inhalation Once daily For copd 1 inhalat ion 2023 Active 2023 63736 68217 0 Once daily Inhala tion False Hydrocortis one 20 mg tablet [generic] 1 tablet By Mouth Once daily For COPD 1 tablet 07/07 Inactiv e 2023 24113 14669 1 Once daily By Mouth False Hydrocortis one 10 mg tablet [generic] 1 tablet By Mouth Once daily in the afternoon - BE AWARE HYDROCORTISON E 20MG IN THE AM, 10MG in the afternoon For COPD 1 tablet 2023 Active 2023 95649 04758 1 Once daily By Mouth False Hydrocortis one 20 mg tablet [generic] 07/07 Inactiv e 2023 36733 89344 1 Hydrocortis one 20 mg tablet [generic] 1 tablet By Mouth Once daily For COPD - BE AWARE HYDROCORTISON E 20MG IN THE AM, 10MG in the afternoon 1 tablet 2023 Active 2023 13896 16771 1 Once daily By Mouth False Miralax 17 gram/dose oral powder 17 gram By Mouth Once daily For Constipation 17 gram 2023 Active 2023 87981 80245 0 Once daily By Mouth False VITAL SIGNS Date Time Diastolic blood pressure Systolic blood pressure Body height Body weight Temperature SpO2 Blood Sugar Pulse Respirations 122 22279 0 68.00 mm[Hg] - Sitting 101.00 mm[Hg] - Sitting 72 NI 234.60 NI 98.20 Tympanic 98.00 % 85.00/ min 18.00/min 122 91372 6 70.00 mm[Hg] - Lying Down 110.00 mm[Hg] - Lying Down 97.80 Tympanic 84.00/ min 18.00/min 123 31673 1 74.00 mm[Hg] - Lying Down 116.00 mm[Hg] - Lying Down 97.40 Tympanic 74.00/ min 18.00/min 123 63806 4 74.00 mm[Hg] - Sitting 116.00 mm[Hg] - Sitting 97.40 Tympanic 74.00/ min 18.00/min 17986 123 4 74.00 mm[Hg] - Sitting 116.00 mm[Hg] - Sitting 97.40 Tympanic 74.00/ min 18.00/min 123 80278 5 82.00 mm[Hg] - Lying Down 153.00 mm[Hg] - Lying Down 98.00 Tympanic 98.00 % 71.00/ min 20.00/min 123 94091 1 06748 124 64640 6 82.00 mm[Hg] - Lying Down 153.00 mm[Hg] - Lying Down 98.00 Tympanic 71.00/ min 20.00/min
--- OUTSIDE RECORDS SUMMARY | 2024-07-30 07:18 | External Medical Summary | Continuity Of Care Document ---
Author Name Unknown Address [address] [address] Organization [facility] () Care Team Providers Care Switch Engineer Name Role Phone DO Mallory Amy Primary Care Provider [phone] Allergies Allergy Reaction Start Date End Date [...] 3 0.1 mL 07/08 Inactiv e 2023 75986 59261 0 1 time Intrad ermal False Tubersol 5 tub. unit/0.1 mL intradermal injection solution [Tuberculin PPD] 0.1mL Intradermal 1 time For PPD 2nd Step Give 2nd Step PPD Day 1 and Read results Day 3 (schedule 7 days after 1st READ) 0.1mL 07/08 Inactiv e 2023 14309 70779 0 1 time Intrad ermal False Tubersol 5 tub. unit/0.1 mL intradermal injection solution [Tuberculin PPD] 0.1 mL Intradermal 1 time For PPD Step 1 GIVE on Day 1 and read results Day 3 0.1 mL 07/10 Inactiv e 2023 39181 28022 0 1 time Intrad ermal False Tubersol 5 tub. unit/0.1 mL intradermal injection solution [Tuberculin PPD] 0.1mL Intradermal 1 time For PPD 2nd Step Give 2nd Step PPD Day 1 and Read results Day 3 (schedule 7 days after 1st READ) 0.1mL 07/19 Active 2023 42617 46760 0 1 time Intrad ermal False Tylenol 325 mg tablet 2 tabs By Mouth Every 4 hours as needed For Pain DO NOT EXCEED 3000 MG APAP/24 Hours 2 tabs 2023 Active 2023 88820 17692 0 Every 4 hours as needed By Mouth False Tylenol 325 mg tablet 2 tabs By Mouth Every 4 hours as needed For Fever >100 DO NOT EXCEED 3000 MG APAP/24 Hours 2 tabs 2023 Active 2023 57902 44803 0 Every 4 hours as needed By Mouth False Dulcolax (bisacodyl) 10 mg rectal suppository One Suppository per rectum PRN if Milk of Magnisia ineffective. Give on day 5 of no BM 1 sup 2023 Active 2023 65492 20864 1 Daily as needed Rectal False Fleet Enema 19 gram-7 gram/118 mL Administer per rectum PRN one time if dulcolax suppository not effective. Give on day 6 of no BM 1 2023 Active 2023 68940 07914 6 Daily as needed Rectal False Milk of Magnesia 400 mg/5 mL oral suspension [Magnesium hydroxide] PRN 30ml By Mouth Daily as needed for constipation one time daily if no BM, on day 4 of no BM (PRN refer to instructions) For Constipation 30 mL 07/08 Inactiv e 2023 42077 37627 6 Daily as needed By Mouth False Nitroglycer in 0.4 mg sublingual tablet [generic] PRN 0.4 mg Sublingual Every 5 minutes as needed Every 5 min PRN x 3 doses PRN chest pain and notify provider For Chest Pain 0.4 mg 2023 Active 2023 10388 13431 5 Every 5 minutes as needed Sublin gual False Aripiprazol e 5 mg tablet [generic] 1/2 Tab By Mouth Once daily For depression 1/2 Tab 2023 Active 2023 24075 70686 1 Once daily By Mouth False Escitalopra m 5 mg tablet [generic] 1 tablet By Mouth Once daily For depression 1 tablet 2023 Active 2023 57283 88313 1 Once daily By Mouth False Probiotic (B. coagulans) 1 billion cell chewable tablet 1 tablet By Mouth Once daily For supplement 1 tablet 2023 Active 2023 70662 04929 7 Once daily By Mouth False Memantine 10 mg tablet [generic] 1 tablet By Mouth Twice daily For alzheimers 1 tablet 2023 Active 2023 97955 96490 0 Twice daily By Mouth False Lidocaine 4 % topical patch [generic] 2 patches Topical - apply in the morning and remove at night For pain 2 patches 2023 Active 2023 85979 31882 0 Twice daily Topica l False Nystatin (bulk) 1 billion unit powder [generic] apply Topically twice daily to affected skin For fungal skin infection apply 2023 Active 2023 15087 53947 6 Twice daily Topica l False Nystatin (bulk) 1 billion unit powder [generic] apply Topical Twice daily For fungal skin breakdown apply 2023 Active 2023 01632 94543 6 Twice daily Topica l False Albuterol sulfate HFA 90 mcg/actuati on aerosol inhaler [generic] 2 puffs Inhalation Every 4 hours As Needed For COPD 2 puffs 2023 Active 2023 14658 87557 2 Every 4 hours Inhala tion False Ascorbic acid (vitamin C) 1,000 mg capsule [generic] 1 tablet By Mouth Once daily For supplement 1 tablet 2023 Active 2023 12979 89654 2 Once daily By Mouth False Epinephrine 0.1 mg/mL injection syringe [generic] 1 dose Intramuscular As Needed for For anaphylaxis 1 dose 2023 Active 2023 66751 24344 1 Intram uscula r False Magnesium 64 mg (magnesium chloride) tablet,opal yed release [generic] 1 tablet By Mouth Twice daily For supplement 1 tablet 2023 Active 2023 19142 61852 6 Twice daily By Mouth False Multivitami n tablet [generic] 1 tablet By Mouth Once daily For supplement 1 tablet 2023 Active 2023 49664 28294 4 Once daily By Mouth False Senna 8.6 mg tablet 1 tablet By Mouth Once daily For constipation 1 tablet 2023 Active 2023 65578 12150 1 Once daily By Mouth False Solifenacin 5 mg tablet [generic] 1 tablet By Mouth Once daily For pulmonary hypertension 1 tablet 2023 Active 2023 70696 02927 0 Once daily By Mouth False Aspirin 81 mg tablet,opal yed release [generic] 1 tablet By Mouth Once daily For DVT prevention 1 tablet 2023 Active 2023 16151 99993 9 Once daily By Mouth False Cholecalcif emily (vitamin D3) 1,250 mcg (50,000 unit) capsule [generic] 1 tablet By Mouth Once daily For supplement 1 tablet 2023 Active 2023 63016 00078 6 Once daily By Mouth False Cyanocobala min (vit B-12) 1,000 mcg tablet [generic] 1 tablet By Mouth Once daily For supplement 1 tablet 2023 Active 2023 90797 24477 5 Once daily By Mouth False Ferrous sulfate 325 mg (65 mg iron) tablet [generic] 1 tablet By Mouth Once daily For supplement 1 tablet 2023 Active 2023 32812 69035 5 Once daily By Mouth False Fludrocorti sone 0.1 mg tablet [generic] 1 tablet by mouth Once daily For adrenal insufficiency 1 tablet 2023 Active 2023 88861 91738 1 Once daily By Mouth False Omeprazole 20 mg capsule,del ayed release [generic] 1 tablet By Mouth Once daily before breakfast For GERD 1 tablet 2023 Active 2023 89018 37130 1 Once daily By Mouth False Trelegy Ellipta 100 mcg-62.5 mcg-25 mcg powder for inhalation 1 inhalation Inhalation Once daily For copd 1 inhalat ion 2023 Active 2023 57220 57578 0 Once daily Inhala tion False Hydrocortis one 20 mg tablet [generic] 1 tablet By Mouth Once daily For COPD 1 tablet 07/07 Inactiv e 2023 43222 54941 1 Once daily By Mouth False Hydrocortis one 10 mg tablet [generic] 1 tablet By Mouth Once daily in the afternoon - BE AWARE HYDROCORTISON E 20MG IN THE AM, 10MG in the afternoon For COPD 1 tablet 2023 Active 2023 49522 11032 1 Once daily By Mouth False Hydrocortis one 20 mg tablet [generic] 07/07 Inactiv e 2023 62192 12639 1 Hydrocortis one 20 mg tablet [generic] 1 tablet By Mouth Once daily For COPD - BE AWARE HYDROCORTISON E 20MG IN THE AM, 10MG in the afternoon 1 tablet 2023 Active 2023 14195 53218 1 Once daily By Mouth False Miralax 17 gram/dose oral powder 17 gram By Mouth Once daily For Constipation 17 gram 2023 Active 2023 56604 90266 0 Once daily By Mouth False VITAL SIGNS Date Time Diastolic blood pressure Systolic blood pressure Body height Body weight Temperature SpO2 Blood Sugar Pulse Respirations 122 43401 0 68.00 mm[Hg] - Sitting 101.00 mm[Hg] - Sitting 72 NI 234.60 NI 98.20 Tympanic 98.00 % 85.00/ min 18.00/min 122 63045 6 70.00 mm[Hg] - Lying Down 110.00 mm[Hg] - Lying Down 97.80 Tympanic 84.00/ min 18.00/min 123 60114 1 74.00 mm[Hg] - Lying Down 116.00 mm[Hg] - Lying Down 97.40 Tympanic 74.00/ min 18.00/min 123 05121 4 74.00 mm[Hg] - Sitting 116.00 mm[Hg] - Sitting 97.40 Tympanic 74.00/ min 18.00/min 123 64039 4 74.00 mm[Hg] - Sitting 116.00 mm[Hg] - Sitting 97.40 Tympanic 74.00/ min 18.00/min 123 75437 5 82.00 mm[Hg] - Lying Down 153.00 mm[Hg] - Lying Down 98.00 Tympanic 98.00 % 71.00/ min 20.00/min 123 20436 1 22433 124 73465 6 82.00 mm[Hg] - Lying Down 153.00 mm[Hg] - Lying Down 98.00 Tympanic 71.00/ min 20.00/min 124 40290 5 82.00 mm[Hg] - Sitting 153.00 mm[Hg] - Sitting 98.00 Tympanic 71.00/ min 20.00/min 124 13684 0 62.00 mm[Hg] - Sitting 113.00 mm[Hg] - Sitting 97.80 Tympanic 72.00/ min 18.00/min 124 85976 0 62.00 mm[Hg] - Sitting 113.00 mm[Hg] - Sitting 97.80 Forehead Scan 95.00 % 72.00/ min 18.00/min 124 28991 5 77.00 mm[Hg] - Sitting 145.00 mm[Hg] - Sitting 125 11484 5 66.00 mm[Hg] - Sitting 120.00 mm[Hg] - Sitting 97.10 Tympanic 78.00/ min 18.00/min
--- OUTSIDE RECORDS SUMMARY | 2024-07-30 07:18 | External Medical Summary | Continuity Of Care Document ---
Author Name Unknown Address [address] [address] Organization [facility] () Care Team Providers Care Director Of Aviation Name Role Phone DO Mallory Amy Primary Care Provider [phone] Allergies Allergy Reaction Start Date End Date [...] 3 0.1 mL 07/08 Inactiv e 2023 97427 25795 0 1 time Intrad ermal False Tubersol 5 tub. unit/0.1 mL intradermal injection solution [Tuberculin PPD] 0.1mL Intradermal 1 time For PPD 2nd Step Give 2nd Step PPD Day 1 and Read results Day 3 (schedule 7 days after 1st READ) 0.1mL 07/08 Inactiv e 2023 32128 39374 0 1 time Intrad ermal False Tubersol 5 tub. unit/0.1 mL intradermal injection solution [Tuberculin PPD] 0.1 mL Intradermal 1 time For PPD Step 1 GIVE on Day 1 and read results Day 3 0.1 mL 07/10 Inactiv e 2023 67466 50965 0 1 time Intrad ermal False Tubersol 5 tub. unit/0.1 mL intradermal injection solution [Tuberculin PPD] 0.1mL Intradermal 1 time For PPD 2nd Step Give 2nd Step PPD Day 1 and Read results Day 3 (schedule 7 days after 1st READ) 0.1mL 07/19 Active 2023 07581 58976 0 1 time Intrad ermal False Tylenol 325 mg tablet 2 tabs By Mouth Every 4 hours as needed For Pain DO NOT EXCEED 3000 MG APAP/24 Hours 2 tabs 2023 Active 2023 77137 82046 0 Every 4 hours as needed By Mouth False Tylenol 325 mg tablet 2 tabs By Mouth Every 4 hours as needed For Fever >100 DO NOT EXCEED 3000 MG APAP/24 Hours 2 tabs 2023 Active 2023 62592 17705 0 Every 4 hours as needed By Mouth False Dulcolax (bisacodyl) 10 mg rectal suppository One Suppository per rectum PRN if Milk of Magnisia ineffective. Give on day 5 of no BM 1 sup 2023 Active 2023 98678 94375 1 Daily as needed Rectal False Fleet Enema 19 gram-7 gram/118 mL Administer per rectum PRN one time if dulcolax suppository not effective. Give on day 6 of no BM 1 2023 Active 2023 14809 72181 6 Daily as needed Rectal False Milk of Magnesia 400 mg/5 mL oral suspension [Magnesium hydroxide] PRN 30ml By Mouth Daily as needed for constipation one time daily if no BM, on day 4 of no BM (PRN refer to instructions) For Constipation 30 mL 07/08 Inactiv e 2023 12732 26560 6 Daily as needed By Mouth False Nitroglycer in 0.4 mg sublingual tablet [generic] PRN 0.4 mg Sublingual Every 5 minutes as needed Every 5 min PRN x 3 doses PRN chest pain and notify provider For Chest Pain 0.4 mg 2023 Active 2023 64664 05752 5 Every 5 minutes as needed Sublin gual False Aripiprazol e 5 mg tablet [generic] 1/2 Tab By Mouth Once daily For depression 1/2 Tab 2023 Active 2023 96669 35721 1 Once daily By Mouth False Escitalopra m 5 mg tablet [generic] 1 tablet By Mouth Once daily For depression 1 tablet 2023 Active 2023 64551 31489 1 Once daily By Mouth False Probiotic (B. coagulans) 1 billion cell chewable tablet 1 tablet By Mouth Once daily For supplement 1 tablet 2023 Active 2023 08284 80659 7 Once daily By Mouth False Memantine 10 mg tablet [generic] 1 tablet By Mouth Twice daily For alzheimers 1 tablet 2023 Active 2023 71012 57096 0 Twice daily By Mouth False Lidocaine 4 % topical patch [generic] 2 patches Topical - apply in the morning and remove at night For pain 2 patches 2023 Active 2023 80256 03581 0 Twice daily Topica l False Nystatin (bulk) 1 billion unit powder [generic] apply Topically twice daily to affected skin For fungal skin infection apply 2023 Active 2023 97459 41364 6 Twice daily Topica l False Nystatin (bulk) 1 billion unit powder [generic] apply Topical Twice daily For fungal skin breakdown apply 2023 Active 2023 98290 43511 6 Twice daily Topica l False Albuterol sulfate HFA 90 mcg/actuati on aerosol inhaler [generic] 2 puffs Inhalation Every 4 hours As Needed For COPD 2 puffs 2023 Active 2023 93192 89963 2 Every 4 hours Inhala tion False Ascorbic acid (vitamin C) 1,000 mg capsule [generic] 1 tablet By Mouth Once daily For supplement 1 tablet 2023 Active 2023 20687 27937 2 Once daily By Mouth False Epinephrine 0.1 mg/mL injection syringe [generic] 1 dose Intramuscular As Needed for For anaphylaxis 1 dose 2023 Active 2023 04112 04640 1 Intram uscula r False Magnesium 64 mg (magnesium chloride) tablet,opal yed release [generic] 1 tablet By Mouth Twice daily For supplement 1 tablet 2023 Active 2023 48074 37445 6 Twice daily By Mouth False Multivitami n tablet [generic] 1 tablet By Mouth Once daily For supplement 1 tablet 2023 Active 2023 30446 94561 4 Once daily By Mouth False Senna 8.6 mg tablet 1 tablet By Mouth Once daily For constipation 1 tablet 2023 Active 2023 73548 92903 1 Once daily By Mouth False Solifenacin 5 mg tablet [generic] 1 tablet By Mouth Once daily For pulmonary hypertension 1 tablet 2023 Active 2023 25630 10584 0 Once daily By Mouth False Aspirin 81 mg tablet,opal yed release [generic] 1 tablet By Mouth Once daily For DVT prevention 1 tablet 2023 Active 2023 90611 56461 9 Once daily By Mouth False Cholecalcif emily (vitamin D3) 1,250 mcg (50,000 unit) capsule [generic] 1 tablet By Mouth Once daily For supplement 1 tablet 07/11 Inactiv e 2023 40716 80851 6 Once daily By Mouth False Cyanocobala min (vit B-12) 1,000 mcg tablet [generic] 1 tablet By Mouth Once daily For supplement 1 tablet 2023 Active 2023 23825 45930 5 Once daily By Mouth False Ferrous sulfate 325 mg (65 mg iron) tablet [generic] 1 tablet By Mouth Once daily For supplement 1 tablet 2023 Active 2023 32067 48959 5 Once daily By Mouth False Fludrocorti sone 0.1 mg tablet [generic] 1 tablet by mouth Once daily For adrenal insufficiency 1 tablet 2023 Active 2023 89173 10272 1 Once daily By Mouth False Omeprazole 20 mg capsule,del ayed release [generic] 1 tablet By Mouth Once daily before breakfast For GERD 1 tablet 2023 Active 2023 47470 16942 1 Once daily By Mouth False Trelegy Ellipta 100 mcg-62.5 mcg-25 mcg powder for inhalation 1 inhalation Inhalation Once daily For copd 1 inhalat ion 2023 Active 2023 37607 01473 0 Once daily Inhala tion False Hydrocortis one 20 mg tablet [generic] 1 tablet By Mouth Once daily For COPD 1 tablet 07/07 Inactiv e 2023 39747 32443 1 Once daily By Mouth False Hydrocortis one 10 mg tablet [generic] 1 tablet By Mouth Once daily in the afternoon - BE AWARE HYDROCORTISON E 20MG IN THE AM, 10MG in the afternoon For COPD 1 tablet 2023 Active 2023 49164 73171 1 Once daily By Mouth False Hydrocortis one 20 mg tablet [generic] 07/07 Inactiv e 2023 48850 33243 1 Hydrocortis one 20 mg tablet [generic] 1 tablet By Mouth Once daily For COPD - BE AWARE HYDROCORTISON E 20MG IN THE AM, 10MG in the afternoon 1 tablet 2023 Active 2023 20550 46463 1 Once daily By Mouth False Miralax 17 gram/dose oral powder 17 gram By Mouth Once daily For Constipation 17 gram 2023 Active 2023 15815 84108 0 Once daily By Mouth False Myrbetriq 25 mg tablet,exte nded release 25 mg By Mouth Once daily For Bladder Spasms 25 mg 2023 Active 2023 85903 66536 7 Once daily By Mouth False Albuterol sulfate HFA 90 mcg/actuati on aerosol inhaler [generic] 2 puffs Inhalation Every 4 hours as needed For SOB/wheezing 2 puffs 2023 Active 2023 91131 69708 2 Every 4 hours as needed Inhala tion False Problems Code Description Start Date End Date Status A41.9 Sepsis, unspecified organism 07/07/202400/0 000 Active VITAL SIGNS Date Time Diastolic blood pressure Systolic blood pressure Body height Body weight Temperature SpO2 Blood Sugar Pulse Respirations 122 33598 0 68.00 mm[Hg] - Sitting 101.00 mm[Hg] - Sitting 72 NI 234.60 NI 98.20 Tympanic 98.00 % 85.00/ min 18.00/min 122 55166 6 70.00 mm[Hg] - Lying Down 110.00 mm[Hg] - Lying Down 97.80 Tympanic 84.00/ min 18.00/min 123 16134 1 74.00 mm[Hg] - Lying Down 116.00 mm[Hg] - Lying Down 97.40 Tympanic 74.00/ min 18.00/min 123 56191 4 74.00 mm[Hg] - Sitting 116.00 mm[Hg] - Sitting 97.40 Tympanic 74.00/ min 18.00/min 123 08154 4 74.00 mm[Hg] - Sitting 116.00 mm[Hg] - Sitting 97.40 Tympanic 74.00/ min 18.00/min 123 72111 5 82.00 mm[Hg] - Lying Down 153.00 mm[Hg] - Lying Down 98.00 Tympanic 98.00 % 71.00/ min 20.00/min 123 01374 1 39369 124 49211 6 82.00 mm[Hg] - Lying Down 153.00 mm[Hg] - Lying Down 98.00 Tympanic 71.00/ min 20.00/min 124 84149 5 82.00 mm[Hg] - Sitting 153.00 mm[Hg] - Sitting 98.00 Tympanic 71.00/ min 20.00/min 124 34526 0 62.00 mm[Hg] - Sitting 113.00 mm[Hg] - Sitting 97.80 Tympanic 72.00/ min 18.00/min 124 11261 0 62.00 mm[Hg] - Sitting 113.00 mm[Hg] - Sitting 97.80 Forehead Scan 95.00 % 72.00/ min 18.00/min 124 13130 5 77.00 mm[Hg] - Sitting 145.00 mm[Hg] - Sitting 125 61468 5 66.00 mm[Hg] - Sitting 120.00 mm[Hg] - Sitting 97.10 Tympanic 78.00/ min 18.00/min 125 64256 0 68.00 mm[Hg] - Sitting 101.00 mm[Hg] - Sitting 98.20 Tympanic 85.00/ min 18.00/min 125 39817 0 78.00 mm[Hg] - Sitting 141.00 mm[Hg] - Sitting 98.30 Forehead Scan 99.00 % 76.00/ min 18.00/min 125 20885 7 68.00 mm[Hg] - Sitting 121.00 mm[Hg] - Sitting 126 51020 7 82.00 mm[Hg] - Lying Down 169.00 mm[Hg] - Lying Down 98.10 Tympanic 97.00 % 84.00/ min 16.00/min
--- OUTSIDE RECORDS SUMMARY | 2024-07-30 07:18 | External Medical Summary | Continuity Of Care Document ---
Author Name Unknown Address [address] [address] Organization [facility] () Care Team Providers Care Sawmill Equipment Operator Name Role Phone DO Mallory Amy Primary Care Provider [phone] Allergies Allergy Reaction Start Date End Date [...] 3 0.1 mL 07/08 Inactiv e 2023 53668 38693 0 1 time Intrad ermal False Tubersol 5 tub. unit/0.1 mL intradermal injection solution [Tuberculin PPD] 0.1mL Intradermal 1 time For PPD 2nd Step Give 2nd Step PPD Day 1 and Read results Day 3 (schedule 7 days after 1st READ) 0.1mL 07/08 Inactiv e 2023 58790 41702 0 1 time Intrad ermal False Tubersol 5 tub. unit/0.1 mL intradermal injection solution [Tuberculin PPD] 0.1 mL Intradermal 1 time For PPD Step 1 GIVE on Day 1 and read results Day 3 0.1 mL 07/10 Inactiv e 2023 20888 19418 0 1 time Intrad ermal False Tubersol 5 tub. unit/0.1 mL intradermal injection solution [Tuberculin PPD] 0.1mL Intradermal 1 time For PPD 2nd Step Give 2nd Step PPD Day 1 and Read results Day 3 (schedule 7 days after 1st READ) 0.1mL 07/19 Active 2023 78598 61644 0 1 time Intrad ermal False Tylenol 325 mg tablet 2 tabs By Mouth Every 4 hours as needed For Pain DO NOT EXCEED 3000 MG APAP/24 Hours 2 tabs 2023 Active 2023 91626 95865 0 Every 4 hours as needed By Mouth False Tylenol 325 mg tablet 2 tabs By Mouth Every 4 hours as needed For Fever >100 DO NOT EXCEED 3000 MG APAP/24 Hours 2 tabs 2023 Active 2023 34664 53183 0 Every 4 hours as needed By Mouth False Dulcolax (bisacodyl) 10 mg rectal suppository One Suppository per rectum PRN if Milk of Magnisia ineffective. Give on day 5 of no BM 1 sup 2023 Active 2023 12682 56778 1 Daily as needed Rectal False Fleet Enema 19 gram-7 gram/118 mL Administer per rectum PRN one time if dulcolax suppository not effective. Give on day 6 of no BM 1 2023 Active 2023 85305 44156 6 Daily as needed Rectal False Milk of Magnesia 400 mg/5 mL oral suspension [Magnesium hydroxide] PRN 30ml By Mouth Daily as needed for constipation one time daily if no BM, on day 4 of no BM (PRN refer to instructions) For Constipation 30 mL 07/08 Inactiv e 2023 28474 97286 6 Daily as needed By Mouth False Nitroglycer in 0.4 mg sublingual tablet [generic] PRN 0.4 mg Sublingual Every 5 minutes as needed Every 5 min PRN x 3 doses PRN chest pain and notify provider For Chest Pain 0.4 mg 2023 Active 2023 80519 86491 5 Every 5 minutes as needed Sublin gual False Aripiprazol e 5 mg tablet [generic] 1/2 Tab By Mouth Once daily For depression 1/2 Tab 2023 Active 2023 96161 19679 1 Once daily By Mouth False Escitalopra m 5 mg tablet [generic] 1 tablet By Mouth Once daily For depression 1 tablet 2023 Active 2023 19099 89891 1 Once daily By Mouth False Probiotic (B. coagulans) 1 billion cell chewable tablet 1 tablet By Mouth Once daily For supplement 1 tablet 2023 Active 2023 14195 84104 7 Once daily By Mouth False Memantine 10 mg tablet [generic] 1 tablet By Mouth Twice daily For alzheimers 1 tablet 2023 Active 2023 36933 83752 0 Twice daily By Mouth False Lidocaine 4 % topical patch [generic] 2 patches Topical - apply in the morning and remove at night For pain 2 patches 2023 Active 2023 38782 58606 0 Twice daily Topica l False Nystatin (bulk) 1 billion unit powder [generic] apply Topically twice daily to affected skin For fungal skin infection apply 2023 Active 2023 01748 18079 6 Twice daily Topica l False Nystatin (bulk) 1 billion unit powder [generic] apply Topical Twice daily For fungal skin breakdown apply 2023 Active 2023 69873 63441 6 Twice daily Topica l False Albuterol sulfate HFA 90 mcg/actuati on aerosol inhaler [generic] 2 puffs Inhalation Every 4 hours As Needed For COPD 2 puffs 2023 Active 2023 76653 29734 2 Every 4 hours Inhala tion False Ascorbic acid (vitamin C) 1,000 mg capsule [generic] 1 tablet By Mouth Once daily For supplement 1 tablet 2023 Active 2023 95849 54397 2 Once daily By Mouth False Epinephrine 0.1 mg/mL injection syringe [generic] 1 dose Intramuscular As Needed for For anaphylaxis 1 dose 2023 Active 2023 21279 51016 1 Intram uscula r False Magnesium 64 mg (magnesium chloride) tablet,opal yed release [generic] 1 tablet By Mouth Twice daily For supplement 1 tablet 2023 Active 2023 85618 74428 6 Twice daily By Mouth False Multivitami n tablet [generic] 1 tablet By Mouth Once daily For supplement 1 tablet 2023 Active 2023 44666 75672 4 Once daily By Mouth False Senna 8.6 mg tablet 1 tablet By Mouth Once daily For constipation 1 tablet 2023 Active 2023 44392 58360 1 Once daily By Mouth False Solifenacin 5 mg tablet [generic] 1 tablet By Mouth Once daily For pulmonary hypertension 1 tablet 2023 Active 2023 91308 82715 0 Once daily By Mouth False Aspirin 81 mg tablet,opal yed release [generic] 1 tablet By Mouth Once daily For DVT prevention 1 tablet 2023 Active 2023 94448 29278 9 Once daily By Mouth False Cholecalcif emily (vitamin D3) 1,250 mcg (50,000 unit) capsule [generic] 1 tablet By Mouth Once daily For supplement 1 tablet 2023 Active 2023 20372 44258 6 Once daily By Mouth False Cyanocobala min (vit B-12) 1,000 mcg tablet [generic] 1 tablet By Mouth Once daily For supplement 1 tablet 2023 Active 2023 75641 47278 5 Once daily By Mouth False Ferrous sulfate 325 mg (65 mg iron) tablet [generic] 1 tablet By Mouth Once daily For supplement 1 tablet 2023 Active 2023 78245 06153 5 Once daily By Mouth False Fludrocorti sone 0.1 mg tablet [generic] 1 tablet by mouth Once daily For adrenal insufficiency 1 tablet 2023 Active 2023 77833 43786 1 Once daily By Mouth False Omeprazole 20 mg capsule,del ayed release [generic] 1 tablet By Mouth Once daily before breakfast For GERD 1 tablet 2023 Active 2023 97678 31683 1 Once daily By Mouth False Trelegy Ellipta 100 mcg-62.5 mcg-25 mcg powder for inhalation 1 inhalation Inhalation Once daily For copd 1 inhalat ion 2023 Active 2023 86526 14954 0 Once daily Inhala tion False Hydrocortis one 20 mg tablet [generic] 1 tablet By Mouth Once daily For COPD 1 tablet 07/07 Inactiv e 2023 32212 97528 1 Once daily By Mouth False Hydrocortis one 10 mg tablet [generic] 1 tablet By Mouth Once daily in the afternoon - BE AWARE HYDROCORTISON E 20MG IN THE AM, 10MG in the afternoon For COPD 1 tablet 2023 Active 2023 60199 67024 1 Once daily By Mouth False Hydrocortis one 20 mg tablet [generic] 07/07 Inactiv e 2023 42003 45886 1 Hydrocortis one 20 mg tablet [generic] 1 tablet By Mouth Once daily For COPD - BE AWARE HYDROCORTISON E 20MG IN THE AM, 10MG in the afternoon 1 tablet 2023 Active 2023 55262 69301 1 Once daily By Mouth False Miralax 17 gram/dose oral powder 17 gram By Mouth Once daily For Constipation 17 gram 2023 Active 2023 33101 08866 0 Once daily By Mouth False VITAL SIGNS Date Time Diastolic blood pressure Systolic blood pressure Body height Body weight Temperature SpO2 Blood Sugar Pulse Respirations 122 77751 0 68.00 mm[Hg] - Sitting 101.00 mm[Hg] - Sitting 72 NI 234.60 NI 98.20 Tympanic 98.00 % 85.00/ min 18.00/min 122 08928 6 70.00 mm[Hg] - Lying Down 110.00 mm[Hg] - Lying Down 97.80 Tympanic 84.00/ min 18.00/min 123 44266 1 74.00 mm[Hg] - Lying Down 116.00 mm[Hg] - Lying Down 97.40 Tympanic 74.00/ min 18.00/min 123 23812 4 74.00 mm[Hg] - Sitting 116.00 mm[Hg] - Sitting 97.40 Tympanic 74.00/ min 18.00/min 123 15622 4 74.00 mm[Hg] - Sitting 116.00 mm[Hg] - Sitting 97.40 Tympanic 74.00/ min 18.00/min 123 00786 5 82.00 mm[Hg] - Lying Down 153.00 mm[Hg] - Lying Down 98.00 Tympanic 98.00 % 71.00/ min 20.00/min 123 35616 1 38522 124 15664 6 82.00 mm[Hg] - Lying Down 153.00 mm[Hg] - Lying Down 98.00 Tympanic 71.00/ min 20.00/min 124 33026 5 82.00 mm[Hg] - Sitting 153.00 mm[Hg] - Sitting 98.00 Tympanic 71.00/ min 20.00/min 124 97892 0 62.00 mm[Hg] - Sitting 113.00 mm[Hg] - Sitting 97.80 Tympanic 72.00/ min 18.00/min 124 66477 0 62.00 mm[Hg] - Sitting 113.00 mm[Hg] - Sitting 97.80 Forehead Scan 95.00 % 72.00/ min 18.00/min 124 53428 5 77.00 mm[Hg] - Sitting 145.00 mm[Hg] - Sitting 125 27449 5 66.00 mm[Hg] - Sitting 120.00 mm[Hg] - Sitting 97.10 Tympanic 78.00/ min 18.00/min
--- OUTSIDE RECORDS SUMMARY | 2024-07-30 07:18 | External Medical Summary | Continuity Of Care Document ---
Author Name Unknown Address [address] [address] Organization [facility] () Care Team Providers Care Sweat Band Separator Name Role Phone DO Mallory Amy Primary Care Provider [phone] Allergies Allergy Reaction Start Date End Date [...] 3 0.1 mL 07/08 Inactiv e 2023 08072 09863 0 1 time Intrad ermal False Tubersol 5 tub. unit/0.1 mL intradermal injection solution [Tuberculin PPD] 0.1mL Intradermal 1 time For PPD 2nd Step Give 2nd Step PPD Day 1 and Read results Day 3 (schedule 7 days after 1st READ) 0.1mL 07/08 Inactiv e 2023 49663 76597 0 1 time Intrad ermal False Tubersol 5 tub. unit/0.1 mL intradermal injection solution [Tuberculin PPD] 0.1 mL Intradermal 1 time For PPD Step 1 GIVE on Day 1 and read results Day 3 0.1 mL 07/10 Inactiv e 2023 47110 56113 0 1 time Intrad ermal False Tubersol 5 tub. unit/0.1 mL intradermal injection solution [Tuberculin PPD] 0.1mL Intradermal 1 time For PPD 2nd Step Give 2nd Step PPD Day 1 and Read results Day 3 (schedule 7 days after 1st READ) 0.1mL 07/19 Active 2023 46783 06880 0 1 time Intrad ermal False Tylenol 325 mg tablet 2 tabs By Mouth Every 4 hours as needed For Pain DO NOT EXCEED 3000 MG APAP/24 Hours 2 tabs 2023 Active 2023 52678 48427 0 Every 4 hours as needed By Mouth False Tylenol 325 mg tablet 2 tabs By Mouth Every 4 hours as needed For Fever >100 DO NOT EXCEED 3000 MG APAP/24 Hours 2 tabs 2023 Active 2023 99920 28756 0 Every 4 hours as needed By Mouth False Dulcolax (bisacodyl) 10 mg rectal suppository One Suppository per rectum PRN if Milk of Magnisia ineffective. Give on day 5 of no BM 1 sup 2023 Active 2023 10064 34677 1 Daily as needed Rectal False Fleet Enema 19 gram-7 gram/118 mL Administer per rectum PRN one time if dulcolax suppository not effective. Give on day 6 of no BM 1 2023 Active 2023 83410 93330 6 Daily as needed Rectal False Milk of Magnesia 400 mg/5 mL oral suspension [Magnesium hydroxide] PRN 30ml By Mouth Daily as needed for constipation one time daily if no BM, on day 4 of no BM (PRN refer to instructions) For Constipation 30 mL 07/08 Inactiv e 2023 77892 53377 6 Daily as needed By Mouth False Nitroglycer in 0.4 mg sublingual tablet [generic] PRN 0.4 mg Sublingual Every 5 minutes as needed Every 5 min PRN x 3 doses PRN chest pain and notify provider For Chest Pain 0.4 mg 2023 Active 2023 94819 11536 5 Every 5 minutes as needed Sublin gual False Aripiprazol e 5 mg tablet [generic] 1/2 Tab By Mouth Once daily For depression 1/2 Tab 2023 Active 2023 39230 67058 1 Once daily By Mouth False Escitalopra m 5 mg tablet [generic] 1 tablet By Mouth Once daily For depression 1 tablet 2023 Active 2023 74485 81116 1 Once daily By Mouth False Probiotic (B. coagulans) 1 billion cell chewable tablet 1 tablet By Mouth Once daily For supplement 1 tablet 2023 Active 2023 27385 72368 7 Once daily By Mouth False Memantine 10 mg tablet [generic] 1 tablet By Mouth Twice daily For alzheimers 1 tablet 2023 Active 2023 20184 07627 0 Twice daily By Mouth False Lidocaine 4 % topical patch [generic] 2 patches Topical - apply in the morning and remove at night For pain 2 patches 2023 Active 2023 85921 90632 0 Twice daily Topica l False Nystatin (bulk) 1 billion unit powder [generic] apply Topically twice daily to affected skin For fungal skin infection apply 2023 Active 2023 46530 81525 6 Twice daily Topica l False Nystatin (bulk) 1 billion unit powder [generic] apply Topical Twice daily For fungal skin breakdown apply 2023 Active 2023 42017 03845 6 Twice daily Topica l False Albuterol sulfate HFA 90 mcg/actuati on aerosol inhaler [generic] 2 puffs Inhalation Every 4 hours As Needed For COPD 2 puffs 2023 Active 2023 79922 35872 2 Every 4 hours Inhala tion False Ascorbic acid (vitamin C) 1,000 mg capsule [generic] 1 tablet By Mouth Once daily For supplement 1 tablet 2023 Active 2023 22968 43215 2 Once daily By Mouth False Epinephrine 0.1 mg/mL injection syringe [generic] 1 dose Intramuscular As Needed for For anaphylaxis 1 dose 2023 Active 2023 79283 18039 1 Intram uscula r False Magnesium 64 mg (magnesium chloride) tablet,opal yed release [generic] 1 tablet By Mouth Twice daily For supplement 1 tablet 2023 Active 2023 59534 82399 6 Twice daily By Mouth False Multivitami n tablet [generic] 1 tablet By Mouth Once daily For supplement 1 tablet 2023 Active 2023 60700 20078 4 Once daily By Mouth False Senna 8.6 mg tablet 1 tablet By Mouth Once daily For constipation 1 tablet 2023 Active 2023 58724 33866 1 Once daily By Mouth False Solifenacin 5 mg tablet [generic] 1 tablet By Mouth Once daily For pulmonary hypertension 1 tablet 2023 Active 2023 21319 14363 0 Once daily By Mouth False Aspirin 81 mg tablet,opal yed release [generic] 1 tablet By Mouth Once daily For DVT prevention 1 tablet 2023 Active 2023 01172 82561 9 Once daily By Mouth False Cholecalcif emily (vitamin D3) 1,250 mcg (50,000 unit) capsule [generic] 1 tablet By Mouth Once daily For supplement 1 tablet 2023 Active 2023 67777 94760 6 Once daily By Mouth False Cyanocobala min (vit B-12) 1,000 mcg tablet [generic] 1 tablet By Mouth Once daily For supplement 1 tablet 2023 Active 2023 19923 66136 5 Once daily By Mouth False Ferrous sulfate 325 mg (65 mg iron) tablet [generic] 1 tablet By Mouth Once daily For supplement 1 tablet 2023 Active 2023 11131 03768 5 Once daily By Mouth False Fludrocorti sone 0.1 mg tablet [generic] 1 tablet by mouth Once daily For adrenal insufficiency 1 tablet 2023 Active 2023 40646 34961 1 Once daily By Mouth False Omeprazole 20 mg capsule,del ayed release [generic] 1 tablet By Mouth Once daily before breakfast For GERD 1 tablet 2023 Active 2023 96439 64839 1 Once daily By Mouth False Trelegy Ellipta 100 mcg-62.5 mcg-25 mcg powder for inhalation 1 inhalation Inhalation Once daily For copd 1 inhalat ion 2023 Active 2023 96250 20923 0 Once daily Inhala tion False Hydrocortis one 20 mg tablet [generic] 1 tablet By Mouth Once daily For COPD 1 tablet 07/07 Inactiv e 2023 67380 70768 1 Once daily By Mouth False Hydrocortis one 10 mg tablet [generic] 1 tablet By Mouth Once daily in the afternoon - BE AWARE HYDROCORTISON E 20MG IN THE AM, 10MG in the afternoon For COPD 1 tablet 2023 Active 2023 07246 11543 1 Once daily By Mouth False Hydrocortis one 20 mg tablet [generic] 07/07 Inactiv e 2023 16185 92862 1 Hydrocortis one 20 mg tablet [generic] 1 tablet By Mouth Once daily For COPD - BE AWARE HYDROCORTISON E 20MG IN THE AM, 10MG in the afternoon 1 tablet 2023 Active 2023 47048 95414 1 Once daily By Mouth False Miralax 17 gram/dose oral powder 17 gram By Mouth Once daily For Constipation 17 gram 2023 Active 2023 29842 64995 0 Once daily By Mouth False Problems Code Description Start Date End Date Status A41.9 Sepsis, unspecified organism 07/07/2024 0000/0 000 Active VITAL SIGNS Date Time Diastolic blood pressure Systolic blood pressure Body height Body weight Temperature SpO2 Blood Sugar Pulse Respirations 122 48320 0 68.00 mm[Hg] - Sitting 101.00 mm[Hg] - Sitting 72 NI 234.60 NI 98.20 Tympanic 98.00 % 85.00/ min 18.00/min 122 31050 6 70.00 mm[Hg] - Lying Down 110.00 mm[Hg] - Lying Down 97.80 Tympanic 84.00/ min 18.00/min 123 88769 1 74.00 mm[Hg] - Lying Down 116.00 mm[Hg] - Lying Down 97.40 Tympanic 74.00/ min 18.00/min 123 22119 4 74.00 mm[Hg] - Sitting 116.00 mm[Hg] - Sitting 97.40 Tympanic 74.00/ min 18.00/min 123 50367 4 74.00 mm[Hg] - Sitting 116.00 mm[Hg] - Sitting 97.40 Tympanic 74.00/ min 18.00/min 123 29381 5 82.00 mm[Hg] - Lying Down 153.00 mm[Hg] - Lying Down 98.00 Tympanic 98.00 % 71.00/ min 20.00/min 123 83072 1 50491 124 69193 6 82.00 mm[Hg] - Lying Down 153.00 mm[Hg] - Lying Down 98.00 Tympanic 71.00/ min 20.00/min 124 79441 5 82.00 mm[Hg] - Sitting 153.00 mm[Hg] - Sitting 98.00 Tympanic 71.00/ min 20.00/min 124 05137 0 62.00 mm[Hg] - Sitting 113.00 mm[Hg] - Sitting 97.80 Tympanic 72.00/ min 18.00/min 124 94887 0 62.00 mm[Hg] - Sitting 113.00 mm[Hg] - Sitting 97.80 Forehead Scan 95.00 % 72.00/ min 18.00/min 124 91316 5 77.00 mm[Hg] - Sitting 145.00 mm[Hg] - Sitting 125 23735 5 66.00 mm[Hg] - Sitting 120.00 mm[Hg] - Sitting 97.10 Tympanic 78.00/ min 18.00/min
--- OUTSIDE RECORDS SUMMARY | 2024-07-30 07:18 | External Medical Summary | Continuity Of Care Document ---
Author Name Unknown Address [address] [address] Organization [facility] [place] () Care Team Providers Care Yard Jacker Name Role Phone DO Mallory Amy Primary Care Provider [phone] Allergies Allergy Reaction Start Date End Date [...] 3 0.1 mL 07/08 Inactiv e 2023 52389 54455 0 1 time Intrad ermal False Tubersol 5 tub. unit/0.1 mL intradermal injection solution [Tuberculin PPD] 0.1mL Intradermal 1 time For PPD 2nd Step Give 2nd Step PPD Day 1 and Read results Day 3 (schedule 7 days after 1st READ) 0.1mL 07/08 Inactiv e 2023 38447 11165 0 1 time Intrad ermal False Tubersol 5 tub. unit/0.1 mL intradermal injection solution [Tuberculin PPD] 0.1 mL Intradermal 1 time For PPD Step 1 GIVE on Day 1 and read results Day 3 0.1 mL 07/10 Inactiv e 2023 73904 98773 0 1 time Intrad ermal False Tubersol 5 tub. unit/0.1 mL intradermal injection solution [Tuberculin PPD] 0.1mL Intradermal 1 time For PPD 2nd Step Give 2nd Step PPD Day 1 and Read results Day 3 (schedule 7 days after 1st READ) 0.1mL 07/19 Active 2023 52021 02461 0 1 time Intrad ermal False Tylenol 325 mg tablet 2 tabs By Mouth Every 4 hours as needed For Pain DO NOT EXCEED 3000 MG APAP/24 Hours 2 tabs 2023 Active 2023 60314 68619 0 Every 4 hours as needed By Mouth False Tylenol 325 mg tablet 2 tabs By Mouth Every 4 hours as needed For Fever >100 DO NOT EXCEED 3000 MG APAP/24 Hours 2 tabs 2023 Active 2023 84924 30996 0 Every 4 hours as needed By Mouth False Dulcolax (bisacodyl) 10 mg rectal suppository One Suppository per rectum PRN if Milk of Magnisia ineffective. Give on day 5 of no BM 1 sup 2023 Active 2023 16431 97612 1 Daily as needed Rectal False Fleet Enema 19 gram-7 gram/118 mL Administer per rectum PRN one time if dulcolax suppository not effective. Give on day 6 of no BM 1 2023 Active 2023 09438 05256 6 Daily as needed Rectal False Milk of Magnesia 400 mg/5 mL oral suspension [Magnesium hydroxide] PRN 30ml By Mouth Daily as needed for constipation one time daily if no BM, on day 4 of no BM (PRN refer to instructions) For Constipation 30 mL 07/08 Inactiv e 2023 16777 26866 6 Daily as needed By Mouth False Nitroglycer in 0.4 mg sublingual tablet [generic] PRN 0.4 mg Sublingual Every 5 minutes as needed Every 5 min PRN x 3 doses PRN chest pain and notify provider For Chest Pain 0.4 mg 2023 Active 2023 24352 92613 5 Every 5 minutes as needed Sublin gual False Aripiprazol e 5 mg tablet [generic] 1/2 Tab By Mouth Once daily For depression 1/2 Tab 2023 Active 2023 71935 23335 1 Once daily By Mouth False Escitalopra m 5 mg tablet [generic] 1 tablet By Mouth Once daily For depression 1 tablet 2023 Active 2023 75020 24664 1 Once daily By Mouth False Probiotic (B. coagulans) 1 billion cell chewable tablet 1 tablet By Mouth Once daily For supplement 1 tablet 2023 Active 2023 26968 28539 7 Once daily By Mouth False Memantine 10 mg tablet [generic] 1 tablet By Mouth Twice daily For alzheimers 1 tablet 2023 Active 2023 60972 89590 0 Twice daily By Mouth False Lidocaine 4 % topical patch [generic] 2 patches Topical - apply in the morning and remove at night For pain 2 patches 2023 Active 2023 34144 18088 0 Twice daily Topica l False Nystatin (bulk) 1 billion unit powder [generic] apply Topically twice daily to affected skin For fungal skin infection apply 2023 Active 2023 05574 44271 6 Twice daily Topica l False Nystatin (bulk) 1 billion unit powder [generic] apply Topical Twice daily For fungal skin breakdown apply 2023 Active 2023 05376 74559 6 Twice daily Topica l False Albuterol sulfate HFA 90 mcg/actuati on aerosol inhaler [generic] 2 puffs Inhalation Every 4 hours As Needed For COPD 2 puffs 2023 Active 2023 42885 81960 2 Every 4 hours Inhala tion False Ascorbic acid (vitamin C) 1,000 mg capsule [generic] 1 tablet By Mouth Once daily For supplement 1 tablet 2023 Active 2023 77423 54362 2 Once daily By Mouth False Epinephrine 0.1 mg/mL injection syringe [generic] 1 dose Intramuscular As Needed for For anaphylaxis 1 dose 2023 Active 2023 03074 11822 1 Intram uscula r False Magnesium 64 mg (magnesium chloride) tablet,opal yed release [generic] 1 tablet By Mouth Twice daily For supplement 1 tablet 2023 Active 2023 46920 82845 6 Twice daily By Mouth False Multivitami n tablet [generic] 1 tablet By Mouth Once daily For supplement 1 tablet 2023 Active 2023 75875 65320 4 Once daily By Mouth False Senna 8.6 mg tablet 1 tablet By Mouth Once daily For constipation 1 tablet 2023 Active 2023 79947 40700 1 Once daily By Mouth False Solifenacin 5 mg tablet [generic] 1 tablet By Mouth Once daily For pulmonary hypertension 1 tablet 2023 Active 2023 56981 42707 0 Once daily By Mouth False Aspirin 81 mg tablet,opal yed release [generic] 1 tablet By Mouth Once daily For DVT prevention 1 tablet 2023 Active 2023 13552 69527 9 Once daily By Mouth False Cholecalcif emily (vitamin D3) 1,250 mcg (50,000 unit) capsule [generic] 1 tablet By Mouth Once daily For supplement 1 tablet 2023 Active 2023 59786 07622 6 Once daily By Mouth False Cyanocobala min (vit B-12) 1,000 mcg tablet [generic] 1 tablet By Mouth Once daily For supplement 1 tablet 2023 Active 2023 16753 90798 5 Once daily By Mouth False Ferrous sulfate 325 mg (65 mg iron) tablet [generic] 1 tablet By Mouth Once daily For supplement 1 tablet 2023 Active 2023 34506 06954 5 Once daily By Mouth False Fludrocorti sone 0.1 mg tablet [generic] 1 tablet by mouth Once daily For adrenal insufficiency 1 tablet 2023 Active 2023 53661 90502 1 Once daily By Mouth False Omeprazole 20 mg capsule,del ayed release [generic] 1 tablet By Mouth Once daily before breakfast For GERD 1 tablet 2023 Active 2023 93942 49678 1 Once daily By Mouth False Trelegy Ellipta 100 mcg-62.5 mcg-25 mcg powder for inhalation 1 inhalation Inhalation Once daily For copd 1 inhalat ion 2023 Active 2023 93978 08171 0 Once daily Inhala tion False Hydrocortis one 20 mg tablet [generic] 1 tablet By Mouth Once daily For COPD 1 tablet 07/07 Inactiv e 2023 35317 93683 1 Once daily By Mouth False Hydrocortis one 10 mg tablet [generic] 1 tablet By Mouth Once daily in the afternoon - BE AWARE HYDROCORTISON E 20MG IN THE AM, 10MG in the afternoon For COPD 1 tablet 2023 Active 2023 80700 66434 1 Once daily By Mouth False Hydrocortis one 20 mg tablet [generic] 07/07 Inactiv e 2023 24841 37047 1 Hydrocortis one 20 mg tablet [generic] 1 tablet By Mouth Once daily For COPD - BE AWARE HYDROCORTISON E 20MG IN THE AM, 10MG in the afternoon 1 tablet 2023 Active 2023 19006 21275 1 Once daily By Mouth False Miralax 17 gram/dose oral powder 17 gram By Mouth Once daily For Constipation 17 gram 2023 Active 2023 15296 23857 0 Once daily By Mouth False Problems Code Description Start Date End Date Status A41.9 Sepsis, unspecified organism 07/07/2024 0000/0 000 Active VITAL SIGNS Date Time Diastolic blood pressure Systolic blood pressure Body height Body weight Temperature SpO2 Blood Sugar Pulse Respirations 122 50979 0 68.00 mm[Hg] - Sitting 101.00 mm[Hg] - Sitting 72 NI 234.60 NI 98.20 Tympanic 98.00 % 85.00/ min 18.00/min 122 11319 6 70.00 mm[Hg] - Lying Down 110.00 mm[Hg] - Lying Down 97.80 Tympanic 84.00/ min 18.00/min 123 48832 1 74.00 mm[Hg] - Lying Down 116.00 mm[Hg] - Lying Down 97.40 Tympanic 74.00/ min 18.00/min 123 40695 4 74.00 mm[Hg] - Sitting 116.00 mm[Hg] - Sitting 97.40 Tympanic 74.00/ min 18.00/min 123 96159 4 74.00 mm[Hg] - Sitting 116.00 mm[Hg] - Sitting 97.40 Tympanic 74.00/ min 18.00/min 123 92267 5 82.00 mm[Hg] - Lying Down 153.00 mm[Hg] - Lying Down 98.00 Tympanic 98.00 % 71.00/ min 20.00/min 123 47166 1 124 96066 6 82.00 mm[Hg] - Lying Down 153.00 mm[Hg] - Lying Down 98.00 Tympanic 71.00/ min 20.00/min 124 85185 5 82.00 mm[Hg] - Sitting 153.00 mm[Hg] - Sitting 98.00 Tympanic 71.00/ min 20.00/min 124 84205 0 62.00 mm[Hg] - Sitting 113.00 mm[Hg] - Sitting 97.80 Tympanic 72.00/ min 18.00/min 124 06099 0 62.00 mm[Hg] - Sitting 113.00 mm[Hg] - Sitting 97.80 Forehead Scan 95.00 % 72.00/ min 18.00/min 124 98402 5 77.00 mm[Hg] - Sitting 145.00 mm[Hg] - Sitting 125 52654 5 66.00 mm[Hg] - Sitting 120.00 mm[Hg] - Sitting 97.10 Tympanic 78.00/ min 18.00/min 125 39215 0 68.00 mm[Hg] - Sitting 101.00 mm[Hg] - Sitting 98.20 Tympanic 85.00/ min 18.00/min 125 37156 7 68.00 mm[Hg] - Sitting 121.00 mm[Hg] - Sitting
--- OUTSIDE RECORDS SUMMARY | 2024-07-30 07:18 | External Medical Summary | Continuity Of Care Document ---
Author Name Unknown Address [address] [address] Organization [facility] [place] () Care Team Providers Care Cold Roll Operator Name Role Phone DO Mallory Amy Primary Care Provider [phone] Allergies Allergy Reaction Start Date End Date [...] 3 0.1 mL 07/08 Inactiv e 2023 60676 20459 0 1 time Intrad ermal False Tubersol 5 tub. unit/0.1 mL intradermal injection solution [Tuberculin PPD] 0.1mL Intradermal 1 time For PPD 2nd Step Give 2nd Step PPD Day 1 and Read results Day 3 (schedule 7 days after 1st READ) 0.1mL 07/08 Inactiv e 2023 78074 17162 0 1 time Intrad ermal False Tubersol 5 tub. unit/0.1 mL intradermal injection solution [Tuberculin PPD] 0.1 mL Intradermal 1 time For PPD Step 1 GIVE on Day 1 and read results Day 3 0.1 mL 07/10 Inactiv e 2023 03389 91791 0 1 time Intrad ermal False Tubersol 5 tub. unit/0.1 mL intradermal injection solution [Tuberculin PPD] 0.1mL Intradermal 1 time For PPD 2nd Step Give 2nd Step PPD Day 1 and Read results Day 3 (schedule 7 days after 1st READ) 0.1mL 07/19 Active 2023 25039 42312 0 1 time Intrad ermal False Tylenol 325 mg tablet 2 tabs By Mouth Every 4 hours as needed For Pain DO NOT EXCEED 3000 MG APAP/24 Hours 2 tabs 2023 Active 2023 21324 41600 0 Every 4 hours as needed By Mouth False Tylenol 325 mg tablet 2 tabs By Mouth Every 4 hours as needed For Fever >100 DO NOT EXCEED 3000 MG APAP/24 Hours 2 tabs 2023 Active 2023 96607 65798 0 Every 4 hours as needed By Mouth False Dulcolax (bisacodyl) 10 mg rectal suppository One Suppository per rectum PRN if Milk of Magnisia ineffective. Give on day 5 of no BM 1 sup 2023 Active 2023 30787 59723 1 Daily as needed Rectal False Fleet Enema 19 gram-7 gram/118 mL Administer per rectum PRN one time if dulcolax suppository not effective. Give on day 6 of no BM 1 2023 Active 2023 54224 87330 6 Daily as needed Rectal False Milk of Magnesia 400 mg/5 mL oral suspension [Magnesium hydroxide] PRN 30ml By Mouth Daily as needed for constipation one time daily if no BM, on day 4 of no BM (PRN refer to instructions) For Constipation 30 mL 07/08 Inactiv e 2023 83675 50597 6 Daily as needed By Mouth False Nitroglycer in 0.4 mg sublingual tablet [generic] PRN 0.4 mg Sublingual Every 5 minutes as needed Every 5 min PRN x 3 doses PRN chest pain and notify provider For Chest Pain 0.4 mg 2023 Active 2023 48412 88336 5 Every 5 minutes as needed Sublin gual False Aripiprazol e 5 mg tablet [generic] 1/2 Tab By Mouth Once daily For depression 1/2 Tab 2023 Active 2023 32613 65596 1 Once daily By Mouth False Escitalopra m 5 mg tablet [generic] 1 tablet By Mouth Once daily For depression 1 tablet 2023 Active 2023 69473 53789 1 Once daily By Mouth False Probiotic (B. coagulans) 1 billion cell chewable tablet 1 tablet By Mouth Once daily For supplement 1 tablet 2023 Active 2023 68891 84203 7 Once daily By Mouth False Memantine 10 mg tablet [generic] 1 tablet By Mouth Twice daily For alzheimers 1 tablet 2023 Active 2023 99976 05252 0 Twice daily By Mouth False Lidocaine 4 % topical patch [generic] 2 patches Topical - apply in the morning and remove at night For pain 2 patches 2023 Active 2023 85312 30990 0 Twice daily Topica l False Nystatin (bulk) 1 billion unit powder [generic] apply Topically twice daily to affected skin For fungal skin infection apply 2023 Active 2023 62885 08736 6 Twice daily Topica l False Nystatin (bulk) 1 billion unit powder [generic] apply Topical Twice daily For fungal skin breakdown apply 2023 Active 2023 86487 53093 6 Twice daily Topica l False Albuterol sulfate HFA 90 mcg/actuati on aerosol inhaler [generic] 2 puffs Inhalation Every 4 hours As Needed For COPD 2 puffs 07/11 Inactiv e 2023 93302 40488 2 Every 4 hours Inhala tion False Ascorbic acid (vitamin C) 1,000 mg capsule [generic] 1 tablet By Mouth Once daily For supplement 1 tablet 2023 Active 2023 58934 67620 2 Once daily By Mouth False Epinephrine 0.1 mg/mL injection syringe [generic] 1 dose Intramuscular As Needed for For anaphylaxis 1 dose 2023 Active 2023 87971 27713 1 Intram uscula r False Magnesium 64 mg (magnesium chloride) tablet,opal yed release [generic] 1 tablet By Mouth Twice daily For supplement 1 tablet 2023 Active 2023 62478 14892 6 Twice daily By Mouth False Multivitami n tablet [generic] 1 tablet By Mouth Once daily For supplement 1 tablet 2023 Active 2023 11818 49265 4 Once daily By Mouth False Senna 8.6 mg tablet 1 tablet By Mouth Once daily For constipation 1 tablet 2023 Active 2023 10655 73935 1 Once daily By Mouth False Solifenacin 5 mg tablet [generic] 1 tablet By Mouth Once daily For pulmonary hypertension 1 tablet 2023 Active 2023 81196 58347 0 Once daily By Mouth False Aspirin 81 mg tablet,opal yed release [generic] 1 tablet By Mouth Once daily For DVT prevention 1 tablet 2023 Active 2023 92278 79327 9 Once daily By Mouth False Cholecalcif emily (vitamin D3) 1,250 mcg (50,000 unit) capsule [generic] 1 tablet By Mouth Once daily For supplement 1 tablet 07/11 Inactiv e 2023 69889 79876 6 Once daily By Mouth False Cyanocobala min (vit B-12) 1,000 mcg tablet [generic] 1 tablet By Mouth Once daily For supplement 1 tablet 2023 Active 2023 73894 12199 5 Once daily By Mouth False Ferrous sulfate 325 mg (65 mg iron) tablet [generic] 1 tablet By Mouth Once daily For supplement 1 tablet 2023 Active 2023 03467 18555 5 Once daily By Mouth False Fludrocorti sone 0.1 mg tablet [generic] 1 tablet by mouth Once daily For adrenal insufficiency 1 tablet 2023 Active 2023 20077 83514 1 Once daily By Mouth False Omeprazole 20 mg capsule,del ayed release [generic] 1 tablet By Mouth Once daily before breakfast For GERD 1 tablet 2023 Active 2023 52034 43417 1 Once daily By Mouth False Trelegy Ellipta 100 mcg-62.5 mcg-25 mcg powder for inhalation 1 inhalation Inhalation Once daily For copd 1 inhalat ion 2023 Active 2023 90872 42277 0 Once daily Inhala tion False Hydrocortis one 20 mg tablet [generic] 1 tablet By Mouth Once daily For COPD 1 tablet 07/07 Inactiv e 2023 39694 81909 1 Once daily By Mouth False Hydrocortis one 10 mg tablet [generic] 1 tablet By Mouth Once daily in the afternoon - BE AWARE HYDROCORTISON E 20MG IN THE AM, 10MG in the afternoon For COPD 1 tablet 2023 Active 2023 66683 98519 1 Once daily By Mouth False Hydrocortis one 20 mg tablet [generic] 07/07 Inactiv e 2023 96292 32258 1 Hydrocortis one 20 mg tablet [generic] 1 tablet By Mouth Once daily For COPD - BE AWARE HYDROCORTISON E 20MG IN THE AM, 10MG in the afternoon 1 tablet 2023 Active 2023 75990 26567 1 Once daily By Mouth False Miralax 17 gram/dose oral powder 17 gram By Mouth Once daily For Constipation 17 gram 2023 Active 2023 62245 54330 0 Once daily By Mouth False Myrbetriq 25 mg tablet,exte nded release 25 mg By Mouth Once daily For Bladder Spasms 25 mg 2023 Active 2023 51073 19569 7 Once daily By Mouth False Albuterol sulfate HFA 90 mcg/actuati on aerosol inhaler [generic] 2 puffs Inhalation Every 4 hours as needed For SOB/wheezing 2 puffs 2023 Active 2023 85238 47518 2 Every 4 hours as needed Inhala tion False Vitamin D3 125 mcg (5,000 unit) tablet 5000 unit By Mouth Once daily For Supplement 5000 unit 2023 Active 2023 46035 95607 8 Once daily By Mouth False Methocarbam ol 500 mg tablet [generic] 500 mg By Mouth Twice daily As Needed For Muscle spasms/ back pain 500 mg 20230000 Active 2023 18321 26677 1 Twice daily By Mouth False Problems Code Description Start Date End Date Status A41.9 Sepsis, unspecified organism 07/07/20240 000 Active VITAL SIGNS Date Time Diastolic blood pressure Systolic blood pressure Body height Body weight Temperature SpO2 Blood Sugar Pulse Respirations 122 36074 0 68.00 mm[Hg] - Sitting 101.00 mm[Hg] - Sitting 72 NI 234.60 NI 98.20 Tympanic 98.00 % 85.00/ min 18.00/min 122 17387 6 70.00 mm[Hg] - Lying Down 110.00 mm[Hg] - Lying Down 97.80 Tympanic 84.00/ min 18.00/min 88816 123 18040 1 74.00 mm[Hg] - Lying Down 116.00 mm[Hg] - Lying Down 97.40 Tympanic 74.00/ min 18.00/min 123 99375 4 74.00 mm[Hg] - Sitting 116.00 mm[Hg] - Sitting 97.40 Tympanic 74.00/ min 18.00/min 123 83976 4 74.00 mm[Hg] - Sitting 116.00 mm[Hg] - Sitting 97.40 Tympanic 74.00/ min 18.00/min 91822 123 05527 5 82.00 mm[Hg] - Lying Down 153.00 mm[Hg] - Lying Down 98.00 Tympanic 98.00 % 71.00/ min 20.00/min 88705 123 73492 1 09357 124 07460 6 82.00 mm[Hg] - Lying Down 153.00 mm[Hg] - Lying Down 98.00 Tympanic 71.00/ min 20.00/min 124 27910 5 82.00 mm[Hg] - Sitting 153.00 mm[Hg] - Sitting 98.00 Tympanic 71.00/ min 20.00/min 124 50487 0 62.00 mm[Hg] - Sitting 113.00 mm[Hg] - Sitting 97.80 Tympanic 72.00/ min 18.00/min 124 41383 0 62.00 mm[Hg] - Sitting 113.00 mm[Hg] - Sitting 97.80 Forehead Scan 95.00 % 72.00/ min 18.00/min 124 22740 5 77.00 mm[Hg] - Sitting 145.00 mm[Hg] - Sitting 125 89012 5 66.00 mm[Hg] - Sitting 120.00 mm[Hg] - Sitting 97.10 Tympanic 78.00/ min 18.00/min 125 78850 0 68.00 mm[Hg] - Sitting 101.00 mm[Hg] - Sitting 98.20 Tympanic 85.00/ min 18.00/min 125 27634 0 78.00 mm[Hg] - Sitting 141.00 mm[Hg] - Sitting 98.30 Forehead Scan 99.00 % 76.00/ min 18.00/min 125 95824 7 68.00 mm[Hg] - Sitting 121.00 mm[Hg] - Sitting 126 38848 7 82.00 mm[Hg] - Lying Down 169.00 mm[Hg] - Lying Down 98.10 Tympanic 97.00 % 84.00/ min 16.00/min
--- OUTSIDE RECORDS SUMMARY | 2024-07-30 07:18 | External Medical Summary | Continuity Of Care Document ---
Author Name Unknown Address [address] [address] Organization [facility] [place] () Care Team Providers Care Batch Maker Name Role Phone DO Mallory Amy Primary Care Provider [phone] Allergies Allergy Reaction Start Date End Date [...] 3 0.1 mL 07/08 Inactiv e 2023 08922 68674 0 1 time Intrad ermal False Tubersol 5 tub. unit/0.1 mL intradermal injection solution [Tuberculin PPD] 0.1mL Intradermal 1 time For PPD 2nd Step Give 2nd Step PPD Day 1 and Read results Day 3 (schedule 7 days after 1st READ) 0.1mL 07/08 Inactiv e 2023 26285 87656 0 1 time Intrad ermal False Tubersol 5 tub. unit/0.1 mL intradermal injection solution [Tuberculin PPD] 0.1 mL Intradermal 1 time For PPD Step 1 GIVE on Day 1 and read results Day 3 0.1 mL 07/10 Inactiv e 2023 74024 63280 0 1 time Intrad ermal False Tubersol 5 tub. unit/0.1 mL intradermal injection solution [Tuberculin PPD] 0.1mL Intradermal 1 time For PPD 2nd Step Give 2nd Step PPD Day 1 and Read results Day 3 (schedule 7 days after 1st READ) 0.1mL 07/19 Active 2023 72487 53166 0 1 time Intrad ermal False Tylenol 325 mg tablet 2 tabs By Mouth Every 4 hours as needed For Pain DO NOT EXCEED 3000 MG APAP/24 Hours 2 tabs 2023 Active 2023 18157 30305 0 Every 4 hours as needed By Mouth False Tylenol 325 mg tablet 2 tabs By Mouth Every 4 hours as needed For Fever >100 DO NOT EXCEED 3000 MG APAP/24 Hours 2 tabs 2023 Active 2023 02073 21022 0 Every 4 hours as needed By Mouth False Dulcolax (bisacodyl) 10 mg rectal suppository One Suppository per rectum PRN if Milk of Magnisia ineffective. Give on day 5 of no BM 1 sup 2023 Active 2023 85243 86196 1 Daily as needed Rectal False Fleet Enema 19 gram-7 gram/118 mL Administer per rectum PRN one time if dulcolax suppository not effective. Give on day 6 of no BM 1 2023 Active 2023 83181 63500 6 Daily as needed Rectal False Milk of Magnesia 400 mg/5 mL oral suspension [Magnesium hydroxide] PRN 30ml By Mouth Daily as needed for constipation one time daily if no BM, on day 4 of no BM (PRN refer to instructions) For Constipation 30 mL 07/08 Inactiv e 2023 97386 96162 6 Daily as needed By Mouth False Nitroglycer in 0.4 mg sublingual tablet [generic] PRN 0.4 mg Sublingual Every 5 minutes as needed Every 5 min PRN x 3 doses PRN chest pain and notify provider For Chest Pain 0.4 mg 2023 Active 2023 12389 81053 5 Every 5 minutes as needed Sublin gual False Aripiprazol e 5 mg tablet [generic] 1/2 Tab By Mouth Once daily For depression 1/2 Tab 2023 Active 2023 81601 52407 1 Once daily By Mouth False Escitalopra m 5 mg tablet [generic] 1 tablet By Mouth Once daily For depression 1 tablet 2023 Active 2023 87215 03698 1 Once daily By Mouth False Probiotic (B. coagulans) 1 billion cell chewable tablet 1 tablet By Mouth Once daily For supplement 1 tablet 2023 Active 2023 12257 81034 7 Once daily By Mouth False Memantine 10 mg tablet [generic] 1 tablet By Mouth Twice daily For alzheimers 1 tablet 2023 Active 2023 04975 34133 0 Twice daily By Mouth False Lidocaine 4 % topical patch [generic] 2 patches Topical - apply in the morning and remove at night For pain 2 patches 2023 Active 2023 98488 75880 0 Twice daily Topica l False Nystatin (bulk) 1 billion unit powder [generic] apply Topically twice daily to affected skin For fungal skin infection apply 2023 Active 2023 48916 88251 6 Twice daily Topica l False Nystatin (bulk) 1 billion unit powder [generic] apply Topical Twice daily For fungal skin breakdown apply 2023 Active 2023 73591 30963 6 Twice daily Topica l False Albuterol sulfate HFA 90 mcg/actuati on aerosol inhaler [generic] 2 puffs Inhalation Every 4 hours As Needed For COPD 2 puffs 2023 Active 2023 07284 62127 2 Every 4 hours Inhala tion False Ascorbic acid (vitamin C) 1,000 mg capsule [generic] 1 tablet By Mouth Once daily For supplement 1 tablet 2023 Active 2023 92802 25179 2 Once daily By Mouth False Epinephrine 0.1 mg/mL injection syringe [generic] 1 dose Intramuscular As Needed for For anaphylaxis 1 dose 2023 Active 2023 23011 52059 1 Intram uscula r False Magnesium 64 mg (magnesium chloride) tablet,opal yed release [generic] 1 tablet By Mouth Twice daily For supplement 1 tablet 2023 Active 2023 08621 16185 6 Twice daily By Mouth False Multivitami n tablet [generic] 1 tablet By Mouth Once daily For supplement 1 tablet 2023 Active 2023 95446 06608 4 Once daily By Mouth False Senna 8.6 mg tablet 1 tablet By Mouth Once daily For constipation 1 tablet 2023 Active 2023 04950 86411 1 Once daily By Mouth False Solifenacin 5 mg tablet [generic] 1 tablet By Mouth Once daily For pulmonary hypertension 1 tablet 2023 Active 2023 36277 45600 0 Once daily By Mouth False Aspirin 81 mg tablet,opal yed release [generic] 1 tablet By Mouth Once daily For DVT prevention 1 tablet 2023 Active 2023 26628 96398 9 Once daily By Mouth False Cholecalcif emily (vitamin D3) 1,250 mcg (50,000 unit) capsule [generic] 1 tablet By Mouth Once daily For supplement 1 tablet 2023 Active 2023 23955 16573 6 Once daily By Mouth False Cyanocobala min (vit B-12) 1,000 mcg tablet [generic] 1 tablet By Mouth Once daily For supplement 1 tablet 2023 Active 2023 01044 24517 5 Once daily By Mouth False Ferrous sulfate 325 mg (65 mg iron) tablet [generic] 1 tablet By Mouth Once daily For supplement 1 tablet 2023 Active 2023 46624 34098 5 Once daily By Mouth False Fludrocorti sone 0.1 mg tablet [generic] 1 tablet by mouth Once daily For adrenal insufficiency 1 tablet 2023 Active 2023 43333 41062 1 Once daily By Mouth False Omeprazole 20 mg capsule,del ayed release [generic] 1 tablet By Mouth Once daily before breakfast For GERD 1 tablet 2023 Active 2023 04574 11903 1 Once daily By Mouth False Trelegy Ellipta 100 mcg-62.5 mcg-25 mcg powder for inhalation 1 inhalation Inhalation Once daily For copd 1 inhalat ion 2023 Active 2023 03511 00484 0 Once daily Inhala tion False Hydrocortis one 20 mg tablet [generic] 1 tablet By Mouth Once daily For COPD 1 tablet 07/07 Inactiv e 2023 47622 25787 1 Once daily By Mouth False Hydrocortis one 10 mg tablet [generic] 1 tablet By Mouth Once daily in the afternoon - BE AWARE HYDROCORTISON E 20MG IN THE AM, 10MG in the afternoon For COPD 1 tablet 2023 Active 2023 50947 70491 1 Once daily By Mouth False Hydrocortis one 20 mg tablet [generic] 07/07 Inactiv e 2023 36091 33599 1 Hydrocortis one 20 mg tablet [generic] 1 tablet By Mouth Once daily For COPD - BE AWARE HYDROCORTISON E 20MG IN THE AM, 10MG in the afternoon 1 tablet 2023 Active 2023 54651 12407 1 Once daily By Mouth False Miralax 17 gram/dose oral powder 17 gram By Mouth Once daily For Constipation 17 gram 2023 Active 2023 81268 52114 0 Once daily By Mouth False Problems Code Description Start Date End Date Status A41.9 Sepsis, unspecified organism 07/07/2024 0000/0 000 Active VITAL SIGNS Date Time Diastolic blood pressure Systolic blood pressure Body height Body weight Temperature SpO2 Blood Sugar Pulse Respirations 122 36771 0 68.00 mm[Hg] - Sitting 101.00 mm[Hg] - Sitting 72 NI 234.60 NI 98.20 Tympanic 98.00 % 85.00/ min 18.00/min 122 46301 6 70.00 mm[Hg] - Lying Down 110.00 mm[Hg] - Lying Down 97.80 Tympanic 84.00/ min 18.00/min 123 07084 1 74.00 mm[Hg] - Lying Down 116.00 mm[Hg] - Lying Down 97.40 Tympanic 74.00/ min 18.00/min 50806 123 27571 4 74.00 mm[Hg] - Sitting 116.00 mm[Hg] - Sitting 97.40 Tympanic 74.00/ min 18.00/min 18623 123 54895 4 74.00 mm[Hg] - Sitting 116.00 mm[Hg] - Sitting 97.40 Tympanic 74.00/ min 18.00/min 34579 123 12914 5 82.00 mm[Hg] - Lying Down 153.00 mm[Hg] - Lying Down 98.00 Tympanic 98.00 % 71.00/ min 20.00/min 123 55680 1 89607 124 98951 6 82.00 mm[Hg] - Lying Down 153.00 mm[Hg] - Lying Down 98.00 Tympanic 71.00/ min 20.00/min 124 73738 5 82.00 mm[Hg] - Sitting 153.00 mm[Hg] - Sitting 98.00 Tympanic 71.00/ min 20.00/min 124 54877 0 62.00 mm[Hg] - Sitting 113.00 mm[Hg] - Sitting 97.80 Tympanic 72.00/ min 18.00/min 124 77157 0 62.00 mm[Hg] - Sitting 113.00 mm[Hg] - Sitting 97.80 Forehead Scan 95.00 % 72.00/ min 18.00/min 124 76032 5 77.00 mm[Hg] - Sitting 145.00 mm[Hg] - Sitting 125 29666 5 66.00 mm[Hg] - Sitting 120.00 mm[Hg] - Sitting 97.10 Tympanic 78.00/ min 18.00/min 125 77278 0 68.00 mm[Hg] - Sitting 101.00 mm[Hg] - Sitting 98.20 Tympanic 85.00/ min 18.00/min 125 54387 0 78.00 mm[Hg] - Sitting 141.00 mm[Hg] - Sitting 98.30 Forehead Scan 99.00 % 76.00/ min 18.00/min 125 72952 7 68.00 mm[Hg] - Sitting 121.00 mm[Hg] - Sitting
--- OUTSIDE RECORDS SUMMARY | 2024-07-30 07:18 | External Medical Summary | Continuity Of Care Document ---
Author Name Unknown Address [address] [address] Organization [facility] () Care Team Providers Care Pocketed Spring Assembler Name Role Phone DO Mallory Amy Primary Care Provider [phone] Allergies Allergy Reaction Start Date End Date [...] 3 0.1 mL 07/08 Inactiv e 2023 65272 80204 0 1 time Intrad ermal False Tubersol 5 tub. unit/0.1 mL intradermal injection solution [Tuberculin PPD] 0.1mL Intradermal 1 time For PPD 2nd Step Give 2nd Step PPD Day 1 and Read results Day 3 (schedule 7 days after 1st READ) 0.1mL 07/08 Inactiv e 2023 28228 82542 0 1 time Intrad ermal False Tubersol 5 tub. unit/0.1 mL intradermal injection solution [Tuberculin PPD] 0.1 mL Intradermal 1 time For PPD Step 1 GIVE on Day 1 and read results Day 3 0.1 mL 07/10 Inactiv e 2023 53922 68762 0 1 time Intrad ermal False Tubersol 5 tub. unit/0.1 mL intradermal injection solution [Tuberculin PPD] 0.1mL Intradermal 1 time For PPD 2nd Step Give 2nd Step PPD Day 1 and Read results Day 3 (schedule 7 days after 1st READ) 0.1mL 07/19 Active 2023 83770 29662 0 1 time Intrad ermal False Tylenol 325 mg tablet 2 tabs By Mouth Every 4 hours as needed For Pain DO NOT EXCEED 3000 MG APAP/24 Hours 2 tabs 2023 Active 2023 72571 68697 0 Every 4 hours as needed By Mouth False Tylenol 325 mg tablet 2 tabs By Mouth Every 4 hours as needed For Fever >100 DO NOT EXCEED 3000 MG APAP/24 Hours 2 tabs 2023 Active 2023 97835 08122 0 Every 4 hours as needed By Mouth False Dulcolax (bisacodyl) 10 mg rectal suppository One Suppository per rectum PRN if Milk of Magnisia ineffective. Give on day 5 of no BM 1 sup 2023 Active 2023 48353 22549 1 Daily as needed Rectal False Fleet Enema 19 gram-7 gram/118 mL Administer per rectum PRN one time if dulcolax suppository not effective. Give on day 6 of no BM 1 2023 Active 2023 07819 94832 6 Daily as needed Rectal False Milk of Magnesia 400 mg/5 mL oral suspension [Magnesium hydroxide] PRN 30ml By Mouth Daily as needed for constipation one time daily if no BM, on day 4 of no BM (PRN refer to instructions) For Constipation 30 mL 07/08 Inactiv e 2023 80016 51156 6 Daily as needed By Mouth False Nitroglycer in 0.4 mg sublingual tablet [generic] PRN 0.4 mg Sublingual Every 5 minutes as needed Every 5 min PRN x 3 doses PRN chest pain and notify provider For Chest Pain 0.4 mg 2023 Active 2023 83907 50691 5 Every 5 minutes as needed Sublin gual False Aripiprazol e 5 mg tablet [generic] 1/2 Tab By Mouth Once daily For depression 1/2 Tab 2023 Active 2023 94104 66127 1 Once daily By Mouth False Escitalopra m 5 mg tablet [generic] 1 tablet By Mouth Once daily For depression 1 tablet 2023 Active 2023 63495 22893 1 Once daily By Mouth False Probiotic (B. coagulans) 1 billion cell chewable tablet 1 tablet By Mouth Once daily For supplement 1 tablet 2023 Active 2023 26885 53649 7 Once daily By Mouth False Memantine 10 mg tablet [generic] 1 tablet By Mouth Twice daily For alzheimers 1 tablet 2023 Active 2023 37773 49109 0 Twice daily By Mouth False Lidocaine 4 % topical patch [generic] 2 patches Topical - apply in the morning and remove at night For pain 2 patches 2023 Active 2023 35022 96750 0 Twice daily Topica l False Nystatin (bulk) 1 billion unit powder [generic] apply Topically twice daily to affected skin For fungal skin infection apply 2023 Active 2023 00836 66272 6 Twice daily Topica l False Nystatin (bulk) 1 billion unit powder [generic] apply Topical Twice daily For fungal skin breakdown apply 2023 Active 2023 25830 35893 6 Twice daily Topica l False Albuterol sulfate HFA 90 mcg/actuati on aerosol inhaler [generic] 2 puffs Inhalation Every 4 hours As Needed For COPD 2 puffs 2023 Active 2023 75477 35733 2 Every 4 hours Inhala tion False Ascorbic acid (vitamin C) 1,000 mg capsule [generic] 1 tablet By Mouth Once daily For supplement 1 tablet 2023 Active 2023 66551 20822 2 Once daily By Mouth False Epinephrine 0.1 mg/mL injection syringe [generic] 1 dose Intramuscular As Needed for For anaphylaxis 1 dose 2023 Active 2023 80589 76413 1 Intram uscula r False Magnesium 64 mg (magnesium chloride) tablet,opal yed release [generic] 1 tablet By Mouth Twice daily For supplement 1 tablet 2023 Active 2023 62121 21483 6 Twice daily By Mouth False Multivitami n tablet [generic] 1 tablet By Mouth Once daily For supplement 1 tablet 2023 Active 2023 66610 92839 4 Once daily By Mouth False Senna 8.6 mg tablet 1 tablet By Mouth Once daily For constipation 1 tablet 2023 Active 2023 73960 89736 1 Once daily By Mouth False Solifenacin 5 mg tablet [generic] 1 tablet By Mouth Once daily For pulmonary hypertension 1 tablet 2023 Active 2023 12501 57751 0 Once daily By Mouth False Aspirin 81 mg tablet,opal yed release [generic] 1 tablet By Mouth Once daily For DVT prevention 1 tablet 2023 Active 2023 42315 26415 9 Once daily By Mouth False Cholecalcif emily (vitamin D3) 1,250 mcg (50,000 unit) capsule [generic] 1 tablet By Mouth Once daily For supplement 1 tablet 2023 Active 2023 60697 49553 6 Once daily By Mouth False Cyanocobala min (vit B-12) 1,000 mcg tablet [generic] 1 tablet By Mouth Once daily For supplement 1 tablet 2023 Active 2023 33974 26950 5 Once daily By Mouth False Ferrous sulfate 325 mg (65 mg iron) tablet [generic] 1 tablet By Mouth Once daily For supplement 1 tablet 2023 Active 2023 25281 25917 5 Once daily By Mouth False Fludrocorti sone 0.1 mg tablet [generic] 1 tablet by mouth Once daily For adrenal insufficiency 1 tablet 2023 Active 2023 01994 59147 1 Once daily By Mouth False Omeprazole 20 mg capsule,del ayed release [generic] 1 tablet By Mouth Once daily before breakfast For GERD 1 tablet 2023 Active 2023 79974 65148 1 Once daily By Mouth False Trelegy Ellipta 100 mcg-62.5 mcg-25 mcg powder for inhalation 1 inhalation Inhalation Once daily For copd 1 inhalat ion 2023 Active 2023 82869 30431 0 Once daily Inhala tion False Hydrocortis one 20 mg tablet [generic] 1 tablet By Mouth Once daily For COPD 1 tablet 07/07 Inactiv e 2023 27922 68364 1 Once daily By Mouth False Hydrocortis one 10 mg tablet [generic] 1 tablet By Mouth Once daily in the afternoon - BE AWARE HYDROCORTISON E 20MG IN THE AM, 10MG in the afternoon For COPD 1 tablet 2023 Active 2023 47243 35733 1 Once daily By Mouth False Hydrocortis one 20 mg tablet [generic] 07/07 Inactiv e 2023 68075 94199 1 Hydrocortis one 20 mg tablet [generic] 1 tablet By Mouth Once daily For COPD - BE AWARE HYDROCORTISON E 20MG IN THE AM, 10MG in the afternoon 1 tablet 2023 Active 2023 33592 50999 1 Once daily By Mouth False Miralax 17 gram/dose oral powder 17 gram By Mouth Once daily For Constipation 17 gram 2023 Active 2023 49586 82234 0 Once daily By Mouth False Problems Code Description Start Date End Date Status A41.9 Sepsis, unspecified organism 07/07/2024 0000/0 000 Active VITAL SIGNS Date Time Diastolic blood pressure Systolic blood pressure Body height Body weight Temperature SpO2 Blood Sugar Pulse Respirations 122 27582 0 68.00 mm[Hg] - Sitting 101.00 mm[Hg] - Sitting 72 NI 234.60 NI 98.20 Tympanic 98.00 % 85.00/ min 18.00/min 122 45059 6 70.00 mm[Hg] - Lying Down 110.00 mm[Hg] - Lying Down 97.80 Tympanic 84.00/ min 18.00/min 123 73013 1 74.00 mm[Hg] - Lying Down 116.00 mm[Hg] - Lying Down 97.40 Tympanic 74.00/ min 18.00/min 97625 123 35524 4 74.00 mm[Hg] - Sitting 116.00 mm[Hg] - Sitting 97.40 Tympanic 74.00/ min 18.00/min 43236 123 58278 4 74.00 mm[Hg] - Sitting 116.00 mm[Hg] - Sitting 97.40 Tympanic 74.00/ min 18.00/min 61101 123 82331 5 82.00 mm[Hg] - Lying Down 153.00 mm[Hg] - Lying Down 98.00 Tympanic 98.00 % 71.00/ min 20.00/min 123 18898 1 17799 124 31020 6 82.00 mm[Hg] - Lying Down 153.00 mm[Hg] - Lying Down 98.00 Tympanic 71.00/ min 20.00/min 124 77058 5 82.00 mm[Hg] - Sitting 153.00 mm[Hg] - Sitting 98.00 Tympanic 71.00/ min 20.00/min 124 93320 0 62.00 mm[Hg] - Sitting 113.00 mm[Hg] - Sitting 97.80 Tympanic 72.00/ min 18.00/min 124 19803 0 62.00 mm[Hg] - Sitting 113.00 mm[Hg] - Sitting 97.80 Forehead Scan 95.00 % 72.00/ min 18.00/min 124 99888 5 77.00 mm[Hg] - Sitting 145.00 mm[Hg] - Sitting 125 29713 5 66.00 mm[Hg] - Sitting 120.00 mm[Hg] - Sitting 97.10 Tympanic 78.00/ min 18.00/min 125 11961 0 68.00 mm[Hg] - Sitting 101.00 mm[Hg] - Sitting 98.20 Tympanic 85.00/ min 18.00/min 125 97971 0 78.00 mm[Hg] - Sitting 141.00 mm[Hg] - Sitting 98.30 Forehead Scan 99.00 % 76.00/ min 18.00/min 125 26093 7 68.00 mm[Hg] - Sitting 121.00 mm[Hg] - Sitting
--- OUTSIDE RECORDS SUMMARY | 2024-07-30 07:18 | External Medical Summary | Continuity Of Care Document ---
Author Name Unknown Address [address] [address] Organization [facility] () Care Team Providers Care Bargeman Name Role Phone DO Mallory Amy Primary Care Provider [phone] Allergies Allergy Reaction Start Date End Date [...] 3 0.1 mL 07/08 Inactiv e 2023 32363 09657 0 1 time Intrad ermal False Tubersol 5 tub. unit/0.1 mL intradermal injection solution [Tuberculin PPD] 0.1mL Intradermal 1 time For PPD 2nd Step Give 2nd Step PPD Day 1 and Read results Day 3 (schedule 7 days after 1st READ) 0.1mL 07/08 Inactiv e 2023 03381 83551 0 1 time Intrad ermal False Tubersol 5 tub. unit/0.1 mL intradermal injection solution [Tuberculin PPD] 0.1 mL Intradermal 1 time For PPD Step 1 GIVE on Day 1 and read results Day 3 0.1 mL 07/10 Inactiv e 2023 09995 53207 0 1 time Intrad ermal False Tubersol 5 tub. unit/0.1 mL intradermal injection solution [Tuberculin PPD] 0.1mL Intradermal 1 time For PPD 2nd Step Give 2nd Step PPD Day 1 and Read results Day 3 (schedule 7 days after 1st READ) 0.1mL 07/19 Active 2023 19618 02734 0 1 time Intrad ermal False Tylenol 325 mg tablet 2 tabs By Mouth Every 4 hours as needed For Pain DO NOT EXCEED 3000 MG APAP/24 Hours 2 tabs 2023 Active 2023 45442 27526 0 Every 4 hours as needed By Mouth False Tylenol 325 mg tablet 2 tabs By Mouth Every 4 hours as needed For Fever >100 DO NOT EXCEED 3000 MG APAP/24 Hours 2 tabs 2023 Active 2023 41759 25399 0 Every 4 hours as needed By Mouth False Dulcolax (bisacodyl) 10 mg rectal suppository One Suppository per rectum PRN if Milk of Magnisia ineffective. Give on day 5 of no BM 1 sup 2023 Active 2023 68129 52980 1 Daily as needed Rectal False Fleet Enema 19 gram-7 gram/118 mL Administer per rectum PRN one time if dulcolax suppository not effective. Give on day 6 of no BM 1 2023 Active 2023 62928 92957 6 Daily as needed Rectal False Milk of Magnesia 400 mg/5 mL oral suspension [Magnesium hydroxide] PRN 30ml By Mouth Daily as needed for constipation one time daily if no BM, on day 4 of no BM (PRN refer to instructions) For Constipation 30 mL 07/08 Inactiv e 2023 01466 00208 6 Daily as needed By Mouth False Nitroglycer in 0.4 mg sublingual tablet [generic] PRN 0.4 mg Sublingual Every 5 minutes as needed Every 5 min PRN x 3 doses PRN chest pain and notify provider For Chest Pain 0.4 mg 2023 Active 2023 91677 51538 5 Every 5 minutes as needed Sublin gual False Aripiprazol e 5 mg tablet [generic] 1/2 Tab By Mouth Once daily For depression 1/2 Tab 2023 Active 2023 50969 06528 1 Once daily By Mouth False Escitalopra m 5 mg tablet [generic] 1 tablet By Mouth Once daily For depression 1 tablet 2023 Active 2023 09754 54546 1 Once daily By Mouth False Probiotic (B. coagulans) 1 billion cell chewable tablet 1 tablet By Mouth Once daily For supplement 1 tablet 2023 Active 2023 59085 54002 7 Once daily By Mouth False Memantine 10 mg tablet [generic] 1 tablet By Mouth Twice daily For alzheimers 1 tablet 2023 Active 2023 06675 81267 0 Twice daily By Mouth False Lidocaine 4 % topical patch [generic] 2 patches Topical - apply in the morning and remove at night For pain 2 patches 2023 Active 2023 54307 81918 0 Twice daily Topica l False Nystatin (bulk) 1 billion unit powder [generic] apply Topically twice daily to affected skin For fungal skin infection apply 2023 Active 2023 10481 86780 6 Twice daily Topica l False Nystatin (bulk) 1 billion unit powder [generic] apply Topical Twice daily For fungal skin breakdown apply 2023 Active 2023 97357 40208 6 Twice daily Topica l False Albuterol sulfate HFA 90 mcg/actuati on aerosol inhaler [generic] 2 puffs Inhalation Every 4 hours As Needed For COPD 2 puffs 07/11 Inactiv e 2023 47798 19301 2 Every 4 hours Inhala tion False Ascorbic acid (vitamin C) 1,000 mg capsule [generic] 1 tablet By Mouth Once daily For supplement 1 tablet 2023 Active 2023 60041 68939 2 Once daily By Mouth False Epinephrine 0.1 mg/mL injection syringe [generic] 1 dose Intramuscular As Needed for For anaphylaxis 1 dose 2023 Active 2023 80756 86014 1 Intram uscula r False Magnesium 64 mg (magnesium chloride) tablet,opal yed release [generic] 1 tablet By Mouth Twice daily For supplement 1 tablet 2023 Active 2023 55245 47063 6 Twice daily By Mouth False Multivitami n tablet [generic] 1 tablet By Mouth Once daily For supplement 1 tablet 2023 Active 2023 91989 25262 4 Once daily By Mouth False Senna 8.6 mg tablet 1 tablet By Mouth Once daily For constipation 1 tablet 2023 Active 2023 00250 27593 1 Once daily By Mouth False Solifenacin 5 mg tablet [generic] 1 tablet By Mouth Once daily For pulmonary hypertension 1 tablet 2023 Active 2023 69948 17964 0 Once daily By Mouth False Aspirin 81 mg tablet,opal yed release [generic] 1 tablet By Mouth Once daily For DVT prevention 1 tablet 2023 Active 2023 04218 71261 9 Once daily By Mouth False Cholecalcif emily (vitamin D3) 1,250 mcg (50,000 unit) capsule [generic] 1 tablet By Mouth Once daily For supplement 1 tablet 07/11 Inactiv e 2023 27476 54649 6 Once daily By Mouth False Cyanocobala min (vit B-12) 1,000 mcg tablet [generic] 1 tablet By Mouth Once daily For supplement 1 tablet 2023 Active 2023 03536 14962 5 Once daily By Mouth False Ferrous sulfate 325 mg (65 mg iron) tablet [generic] 1 tablet By Mouth Once daily For supplement 1 tablet 2023 Active 2023 58331 26171 5 Once daily By Mouth False Fludrocorti sone 0.1 mg tablet [generic] 1 tablet by mouth Once daily For adrenal insufficiency 1 tablet 2023 Active 2023 54230 17824 1 Once daily By Mouth False Omeprazole 20 mg capsule,del ayed release [generic] 1 tablet By Mouth Once daily before breakfast For GERD 1 tablet 2023 Active 2023 96102 64319 1 Once daily By Mouth False Trelegy Ellipta 100 mcg-62.5 mcg-25 mcg powder for inhalation 1 inhalation Inhalation Once daily For copd 1 inhalat ion 2023 Active 2023 37515 73179 0 Once daily Inhala tion False Hydrocortis one 20 mg tablet [generic] 1 tablet By Mouth Once daily For COPD 1 tablet 07/07 Inactiv e 2023 94692 63877 1 Once daily By Mouth False Hydrocortis one 10 mg tablet [generic] 1 tablet By Mouth Once daily in the afternoon - BE AWARE HYDROCORTISON E 20MG IN THE AM, 10MG in the afternoon For COPD 1 tablet 2023 Active 2023 07786 31294 1 Once daily By Mouth False Hydrocortis one 20 mg tablet [generic] 07/07 Inactiv e 2023 40619 25734 1 Hydrocortis one 20 mg tablet [generic] 1 tablet By Mouth Once daily For COPD - BE AWARE HYDROCORTISON E 20MG IN THE AM, 10MG in the afternoon 1 tablet 2023 Active 2023 42236 31558 1 Once daily By Mouth False Miralax 17 gram/dose oral powder 17 gram By Mouth Once daily For Constipation 17 gram 2023 Active 2023 40211 53237 0 Once daily By Mouth False Myrbetriq 25 mg tablet,exte nded release 25 mg By Mouth Once daily For Bladder Spasms 25 mg 2023 Active 2023 84555 11177 7 Once daily By Mouth False Albuterol sulfate HFA 90 mcg/actuati on aerosol inhaler [generic] 2 puffs Inhalation Every 4 hours as needed For SOB/wheezing 2 puffs 2023 Active 2023 40046 11801 2 Every 4 hours as needed Inhala tion False Vitamin D3 125 mcg (5,000 unit) tablet 5000 unit By Mouth Once daily For Supplement 5000 unit 2023 Active 2023 54554 77309 8 Once daily By Mouth False Methocarbam ol 500 mg tablet [generic] 500 mg By Mouth Twice daily As Needed For Muscle spasms/ back pain 500 mg 2023 Active 2023 68894 91614 1 Twice daily By Mouth False Problems [...] 07/07/2024 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 advisor to command in [place] diseases classified elsewhere 07/07/2024 Active K21.9 [...] Temperature SpO2 Blood Sugar Pulse Respirations 122 35874 0 68.00 mm[Hg] - Sitting 101.00 mm[Hg] - Sitting 72 NI 234.60 NI 98.20 Tympanic 98.00 % 85.00/ min 18.00/min 122 74211 6 70.00 mm[Hg] - Lying Down 110.00 mm[Hg] - Lying Down 97.80 Tympanic 84.00/ min 18.00/min 91479 123 54050 1 74.00 mm[Hg] - Lying Down 116.00 mm[Hg] - Lying Down 97.40 Tympanic 74.00/ min 18.00/min 97089 123 27348 4 74.00 mm[Hg] - Sitting 116.00 mm[Hg] - Sitting 97.40 Tympanic 74.00/ min 18.00/min 87727 123 50828 4 74.00 mm[Hg] - Sitting 116.00 mm[Hg] - Sitting 97.40 Tympanic 74.00/ min 18.00/min 74001 123 65721 5 82.00 mm[Hg] - Lying Down 153.00 mm[Hg] - Lying Down 98.00 Tympanic 98.00 % 71.00/ min 20.00/min 29020 123 01520 1 70443 124 83722 6 82.00 mm[Hg] - Lying Down 153.00 mm[Hg] - Lying Down 98.00 Tympanic 71.00/ min 20.00/min 65461 124 03089 5 82.00 mm[Hg] - Sitting 153.00 mm[Hg] - Sitting 98.00 Tympanic 71.00/ min 20.00/min 15445 124 01196 0 62.00 mm[Hg] - Sitting 113.00 mm[Hg] - Sitting 97.80 Tympanic 72.00/ min 18.00/min 124 28605 0 62.00 mm[Hg] - Sitting 113.00 mm[Hg] - Sitting 97.80 Forehead Scan 95.00 % 72.00/ min 18.00/min 124 33645 5 77.00 mm[Hg] - Sitting 145.00 mm[Hg] - Sitting 125 00084 5 66.00 mm[Hg] - Sitting 120.00 mm[Hg] - Sitting 97.10 Tympanic 78.00/ min 18.00/min 125 95127 0 68.00 mm[Hg] - Sitting 101.00 mm[Hg] - Sitting 98.20 Tympanic 85.00/ min 18.00/min 125 78300 0 78.00 mm[Hg] - Sitting 141.00 mm[Hg] - Sitting 98.30 Forehead Scan 99.00 % 76.00/ min 18.00/min 125 25662 7 68.00 mm[Hg] - Sitting 121.00 mm[Hg] - Sitting 126 91699 7 82.00 mm[Hg] - Lying Down 169.00 mm[Hg] - Lying Down 98.10 Tympanic 97.00 % 84.00/ min 16.00/min
--- OUTSIDE RECORDS SUMMARY | 2024-07-30 07:18 | External Medical Summary | Continuity Of Care Document ---
Author Name Unknown Address [address] [address] Organization [facility] [place] () Care Team Providers Care Property Custodian Name Role Phone DO Mallory Amy Primary Care Provider [phone] Allergies Allergy Reaction Start Date End Date [...] 3 0.1 mL 07/08 Inactiv e 2023 98784 96121 0 1 time Intrad ermal False Tubersol 5 tub. unit/0.1 mL intradermal injection solution [Tuberculin PPD] 0.1mL Intradermal 1 time For PPD 2nd Step Give 2nd Step PPD Day 1 and Read results Day 3 (schedule 7 days after 1st READ) 0.1mL 07/08 Inactiv e 2023 15058 86354 0 1 time Intrad ermal False Tubersol 5 tub. unit/0.1 mL intradermal injection solution [Tuberculin PPD] 0.1 mL Intradermal 1 time For PPD Step 1 GIVE on Day 1 and read results Day 3 0.1 mL 07/10 Inactiv e 2023 64570 91024 0 1 time Intrad ermal False Tubersol 5 tub. unit/0.1 mL intradermal injection solution [Tuberculin PPD] 0.1mL Intradermal 1 time For PPD 2nd Step Give 2nd Step PPD Day 1 and Read results Day 3 (schedule 7 days after 1st READ) 0.1mL 07/19 Active 2023 66459 68593 0 1 time Intrad ermal False Tylenol 325 mg tablet 2 tabs By Mouth Every 4 hours as needed For Pain DO NOT EXCEED 3000 MG APAP/24 Hours 2 tabs 2023 Active 2023 36713 20399 0 Every 4 hours as needed By Mouth False Tylenol 325 mg tablet 2 tabs By Mouth Every 4 hours as needed For Fever >100 DO NOT EXCEED 3000 MG APAP/24 Hours 2 tabs 2023 Active 2023 84185 78798 0 Every 4 hours as needed By Mouth False Dulcolax (bisacodyl) 10 mg rectal suppository One Suppository per rectum PRN if Milk of Magnisia ineffective. Give on day 5 of no BM 1 sup 2023 Active 2023 97443 36339 1 Daily as needed Rectal False Fleet Enema 19 gram-7 gram/118 mL Administer per rectum PRN one time if dulcolax suppository not effective. Give on day 6 of no BM 1 2023 Active 2023 97120 49751 6 Daily as needed Rectal False Milk of Magnesia 400 mg/5 mL oral suspension [Magnesium hydroxide] PRN 30ml By Mouth Daily as needed for constipation one time daily if no BM, on day 4 of no BM (PRN refer to instructions) For Constipation 30 mL 07/08 Inactiv e 2023 47503 41868 6 Daily as needed By Mouth False Nitroglycer in 0.4 mg sublingual tablet [generic] PRN 0.4 mg Sublingual Every 5 minutes as needed Every 5 min PRN x 3 doses PRN chest pain and notify provider For Chest Pain 0.4 mg 2023 Active 2023 78831 12510 5 Every 5 minutes as needed Sublin gual False Aripiprazol e 5 mg tablet [generic] 1/2 Tab By Mouth Once daily For depression 1/2 Tab 2023 Active 2023 25091 67530 1 Once daily By Mouth False Escitalopra m 5 mg tablet [generic] 1 tablet By Mouth Once daily For depression 1 tablet 2023 Active 2023 62419 41725 1 Once daily By Mouth False Probiotic (B. coagulans) 1 billion cell chewable tablet 1 tablet By Mouth Once daily For supplement 1 tablet 2023 Active 2023 04328 50974 7 Once daily By Mouth False Memantine 10 mg tablet [generic] 1 tablet By Mouth Twice daily For alzheimers 1 tablet 2023 Active 2023 05452 60228 0 Twice daily By Mouth False Lidocaine 4 % topical patch [generic] 2 patches Topical - apply in the morning and remove at night For pain 2 patches 2023 Active 2023 27528 04718 0 Twice daily Topica l False Nystatin (bulk) 1 billion unit powder [generic] apply Topically twice daily to affected skin For fungal skin infection apply 2023 Active 2023 56432 33924 6 Twice daily Topica l False Nystatin (bulk) 1 billion unit powder [generic] apply Topical Twice daily For fungal skin breakdown apply 2023 Active 2023 20909 48831 6 Twice daily Topica l False Albuterol sulfate HFA 90 mcg/actuati on aerosol inhaler [generic] 2 puffs Inhalation Every 4 hours As Needed For COPD 2 puffs 2023 Active 2023 39748 70607 2 Every 4 hours Inhala tion False Ascorbic acid (vitamin C) 1,000 mg capsule [generic] 1 tablet By Mouth Once daily For supplement 1 tablet 2023 Active 2023 27948 58936 2 Once daily By Mouth False Epinephrine 0.1 mg/mL injection syringe [generic] 1 dose Intramuscular As Needed for For anaphylaxis 1 dose 2023 Active 2023 23808 77775 1 Intram uscula r False Magnesium 64 mg (magnesium chloride) tablet,opal yed release [generic] 1 tablet By Mouth Twice daily For supplement 1 tablet 2023 Active 2023 74020 40614 6 Twice daily By Mouth False Multivitami n tablet [generic] 1 tablet By Mouth Once daily For supplement 1 tablet 2023 Active 2023 31964 97123 4 Once daily By Mouth False Senna 8.6 mg tablet 1 tablet By Mouth Once daily For constipation 1 tablet 2023 Active 2023 75480 54270 1 Once daily By Mouth False Solifenacin 5 mg tablet [generic] 1 tablet By Mouth Once daily For pulmonary hypertension 1 tablet 2023 Active 2023 47325 34354 0 Once daily By Mouth False Aspirin 81 mg tablet,opal yed release [generic] 1 tablet By Mouth Once daily For DVT prevention 1 tablet 2023 Active 2023 82038 79350 9 Once daily By Mouth False Cholecalcif emily (vitamin D3) 1,250 mcg (50,000 unit) capsule [generic] 1 tablet By Mouth Once daily For supplement 1 tablet 2023 Active 2023 25534 33540 6 Once daily By Mouth False Cyanocobala min (vit B-12) 1,000 mcg tablet [generic] 1 tablet By Mouth Once daily For supplement 1 tablet 2023 Active 2023 68997 17109 5 Once daily By Mouth False Ferrous sulfate 325 mg (65 mg iron) tablet [generic] 1 tablet By Mouth Once daily For supplement 1 tablet 2023 Active 2023 94019 61117 5 Once daily By Mouth False Fludrocorti sone 0.1 mg tablet [generic] 1 tablet by mouth Once daily For adrenal insufficiency 1 tablet 2023 Active 2023 89027 52820 1 Once daily By Mouth False Omeprazole 20 mg capsule,del ayed release [generic] 1 tablet By Mouth Once daily before breakfast For GERD 1 tablet 2023 Active 2023 66080 53942 1 Once daily By Mouth False Trelegy Ellipta 100 mcg-62.5 mcg-25 mcg powder for inhalation 1 inhalation Inhalation Once daily For copd 1 inhalat ion 2023 Active 2023 02951 33168 0 Once daily Inhala tion False Hydrocortis one 20 mg tablet [generic] 1 tablet By Mouth Once daily For COPD 1 tablet 07/07 Inactiv e 2023 46248 35779 1 Once daily By Mouth False Hydrocortis one 10 mg tablet [generic] 1 tablet By Mouth Once daily in the afternoon - BE AWARE HYDROCORTISON E 20MG IN THE AM, 10MG in the afternoon For COPD 1 tablet 2023 Active 2023 63308 80261 1 Once daily By Mouth False Hydrocortis one 20 mg tablet [generic] 07/07 Inactiv e 2023 23454 53192 1 Hydrocortis one 20 mg tablet [generic] 1 tablet By Mouth Once daily For COPD - BE AWARE HYDROCORTISON E 20MG IN THE AM, 10MG in the afternoon 1 tablet 2023 Active 2023 75562 13245 1 Once daily By Mouth False Miralax 17 gram/dose oral powder 17 gram By Mouth Once daily For Constipation 17 gram 2023 Active 2023 36538 56571 0 Once daily By Mouth False Problems Code Description Start Date End Date Status A41.9 Sepsis, unspecified organism 07/07/2024 0000/0 000 Active VITAL SIGNS Date Time Diastolic blood pressure Systolic blood pressure Body height Body weight Temperature SpO2 Blood Sugar Pulse Respirations 122 04303 0 68.00 mm[Hg] - Sitting 101.00 mm[Hg] - Sitting 72 NI 234.60 NI 98.20 Tympanic 98.00 % 85.00/ min 18.00/min 122 32792 6 70.00 mm[Hg] - Lying Down 110.00 mm[Hg] - Lying Down 97.80 Tympanic 84.00/ min 18.00/min 123 83073 1 74.00 mm[Hg] - Lying Down 116.00 mm[Hg] - Lying Down 97.40 Tympanic 74.00/ min 18.00/min 28224 123 90691 4 74.00 mm[Hg] - Sitting 116.00 mm[Hg] - Sitting 97.40 Tympanic 74.00/ min 18.00/min 51939 123 80276 4 74.00 mm[Hg] - Sitting 116.00 mm[Hg] - Sitting 97.40 Tympanic 74.00/ min 18.00/min 21360 123 22084 5 82.00 mm[Hg] - Lying Down 153.00 mm[Hg] - Lying Down 98.00 Tympanic 98.00 % 71.00/ min 20.00/min 123 28035 1 01952 124 26097 6 82.00 mm[Hg] - Lying Down 153.00 mm[Hg] - Lying Down 98.00 Tympanic 71.00/ min 20.00/min 124 35204 5 82.00 mm[Hg] - Sitting 153.00 mm[Hg] - Sitting 98.00 Tympanic 71.00/ min 20.00/min 124 52489 0 62.00 mm[Hg] - Sitting 113.00 mm[Hg] - Sitting 97.80 Tympanic 72.00/ min 18.00/min 124 94403 0 62.00 mm[Hg] - Sitting 113.00 mm[Hg] - Sitting 97.80 Forehead Scan 95.00 % 72.00/ min 18.00/min 124 16723 5 77.00 mm[Hg] - Sitting 145.00 mm[Hg] - Sitting 125 55257 5 66.00 mm[Hg] - Sitting 120.00 mm[Hg] - Sitting 97.10 Tympanic 78.00/ min 18.00/min 125 07311 0 68.00 mm[Hg] - Sitting 101.00 mm[Hg] - Sitting 98.20 Tympanic 85.00/ min 18.00/min 125 34164 0 78.00 mm[Hg] - Sitting 141.00 mm[Hg] - Sitting 98.30 Forehead Scan 99.00 % 76.00/ min 18.00/min 125 12205 7 68.00 mm[Hg] - Sitting 121.00 mm[Hg] - Sitting
--- OUTSIDE RECORDS SUMMARY | 2024-07-30 07:18 | External Medical Summary | Continuity Of Care Document ---
Author Name Unknown Address [address] [address] Organization [facility] [place] () Care Team Providers Care Instructor Physical Name Role Phone DO Mallory Amy Primary Care Provider [phone] Allergies Allergy Reaction Start Date End Date [...] 3 0.1 mL 07/08 Inactiv e 2023 44367 44969 0 1 time Intrad ermal False Tubersol 5 tub. unit/0.1 mL intradermal injection solution [Tuberculin PPD] 0.1mL Intradermal 1 time For PPD 2nd Step Give 2nd Step PPD Day 1 and Read results Day 3 (schedule 7 days after 1st READ) 0.1mL 07/08 Inactiv e 2023 08504 77521 0 1 time Intrad ermal False Tubersol 5 tub. unit/0.1 mL intradermal injection solution [Tuberculin PPD] 0.1 mL Intradermal 1 time For PPD Step 1 GIVE on Day 1 and read results Day 3 0.1 mL 07/10 Inactiv e 2023 88710 90060 0 1 time Intrad ermal False Tubersol 5 tub. unit/0.1 mL intradermal injection solution [Tuberculin PPD] 0.1mL Intradermal 1 time For PPD 2nd Step Give 2nd Step PPD Day 1 and Read results Day 3 (schedule 7 days after 1st READ) 0.1mL 07/19 Active 2023 93505 24895 0 1 time Intrad ermal False Tylenol 325 mg tablet 2 tabs By Mouth Every 4 hours as needed For Pain DO NOT EXCEED 3000 MG APAP/24 Hours 2 tabs 2023 Active 2023 18741 04777 0 Every 4 hours as needed By Mouth False Tylenol 325 mg tablet 2 tabs By Mouth Every 4 hours as needed For Fever >100 DO NOT EXCEED 3000 MG APAP/24 Hours 2 tabs 2023 Active 2023 54719 63578 0 Every 4 hours as needed By Mouth False Dulcolax (bisacodyl) 10 mg rectal suppository One Suppository per rectum PRN if Milk of Magnisia ineffective. Give on day 5 of no BM 1 sup 2023 Active 2023 68928 06483 1 Daily as needed Rectal False Fleet Enema 19 gram-7 gram/118 mL Administer per rectum PRN one time if dulcolax suppository not effective. Give on day 6 of no BM 1 2023 Active 2023 96626 12946 6 Daily as needed Rectal False Milk of Magnesia 400 mg/5 mL oral suspension [Magnesium hydroxide] PRN 30ml By Mouth Daily as needed for constipation one time daily if no BM, on day 4 of no BM (PRN refer to instructions) For Constipation 30 mL 07/08 Inactiv e 2023 30378 68404 6 Daily as needed By Mouth False Nitroglycer in 0.4 mg sublingual tablet [generic] PRN 0.4 mg Sublingual Every 5 minutes as needed Every 5 min PRN x 3 doses PRN chest pain and notify provider For Chest Pain 0.4 mg 2023 Active 2023 41398 57112 5 Every 5 minutes as needed Sublin gual False Aripiprazol e 5 mg tablet [generic] 1/2 Tab By Mouth Once daily For depression 1/2 Tab 2023 Active 2023 92861 40317 1 Once daily By Mouth False Escitalopra m 5 mg tablet [generic] 1 tablet By Mouth Once daily For depression 1 tablet 2023 Active 2023 27642 64157 1 Once daily By Mouth False Probiotic (B. coagulans) 1 billion cell chewable tablet 1 tablet By Mouth Once daily For supplement 1 tablet 2023 Active 2023 12944 52785 7 Once daily By Mouth False Memantine 10 mg tablet [generic] 1 tablet By Mouth Twice daily For alzheimers 1 tablet 2023 Active 2023 48441 18240 0 Twice daily By Mouth False Lidocaine 4 % topical patch [generic] 2 patches Topical - apply in the morning and remove at night For pain 2 patches 2023 Active 2023 29047 70938 0 Twice daily Topica l False Nystatin (bulk) 1 billion unit powder [generic] apply Topically twice daily to affected skin For fungal skin infection apply 2023 Active 2023 78433 10254 6 Twice daily Topica l False Nystatin (bulk) 1 billion unit powder [generic] apply Topical Twice daily For fungal skin breakdown apply 2023 Active 2023 75168 19055 6 Twice daily Topica l False Albuterol sulfate HFA 90 mcg/actuati on aerosol inhaler [generic] 2 puffs Inhalation Every 4 hours As Needed For COPD 2 puffs 2023 Active 2023 93307 77101 2 Every 4 hours Inhala tion False Ascorbic acid (vitamin C) 1,000 mg capsule [generic] 1 tablet By Mouth Once daily For supplement 1 tablet 2023 Active 2023 40536 87268 2 Once daily By Mouth False Epinephrine 0.1 mg/mL injection syringe [generic] 1 dose Intramuscular As Needed for For anaphylaxis 1 dose 2023 Active 2023 83262 58824 1 Intram uscula r False Magnesium 64 mg (magnesium chloride) tablet,opal yed release [generic] 1 tablet By Mouth Twice daily For supplement 1 tablet 2023 Active 2023 20607 04947 6 Twice daily By Mouth False Multivitami n tablet [generic] 1 tablet By Mouth Once daily For supplement 1 tablet 2023 Active 2023 68744 31797 4 Once daily By Mouth False Senna 8.6 mg tablet 1 tablet By Mouth Once daily For constipation 1 tablet 2023 Active 2023 74877 79460 1 Once daily By Mouth False Solifenacin 5 mg tablet [generic] 1 tablet By Mouth Once daily For pulmonary hypertension 1 tablet 2023 Active 2023 25510 80008 0 Once daily By Mouth False Aspirin 81 mg tablet,opal yed release [generic] 1 tablet By Mouth Once daily For DVT prevention 1 tablet 2023 Active 2023 40418 00668 9 Once daily By Mouth False Cholecalcif emily (vitamin D3) 1,250 mcg (50,000 unit) capsule [generic] 1 tablet By Mouth Once daily For supplement 1 tablet 2023 Active 2023 24461 50503 6 Once daily By Mouth False Cyanocobala min (vit B-12) 1,000 mcg tablet [generic] 1 tablet By Mouth Once daily For supplement 1 tablet 2023 Active 2023 27632 77655 5 Once daily By Mouth False Ferrous sulfate 325 mg (65 mg iron) tablet [generic] 1 tablet By Mouth Once daily For supplement 1 tablet 2023 Active 2023 56035 96391 5 Once daily By Mouth False Fludrocorti sone 0.1 mg tablet [generic] 1 tablet by mouth Once daily For adrenal insufficiency 1 tablet 2023 Active 2023 65309 11419 1 Once daily By Mouth False Omeprazole 20 mg capsule,del ayed release [generic] 1 tablet By Mouth Once daily before breakfast For GERD 1 tablet 2023 Active 2023 46663 72894 1 Once daily By Mouth False Trelegy Ellipta 100 mcg-62.5 mcg-25 mcg powder for inhalation 1 inhalation Inhalation Once daily For copd 1 inhalat ion 2023 Active 2023 65506 87253 0 Once daily Inhala tion False Hydrocortis one 20 mg tablet [generic] 1 tablet By Mouth Once daily For COPD 1 tablet 07/07 Inactiv e 2023 44940 72397 1 Once daily By Mouth False Hydrocortis one 10 mg tablet [generic] 1 tablet By Mouth Once daily in the afternoon - BE AWARE HYDROCORTISON E 20MG IN THE AM, 10MG in the afternoon For COPD 1 tablet 2023 Active 2023 95305 21982 1 Once daily By Mouth False Hydrocortis one 20 mg tablet [generic] 07/07 Inactiv e 2023 87674 46669 1 Hydrocortis one 20 mg tablet [generic] 1 tablet By Mouth Once daily For COPD - BE AWARE HYDROCORTISON E 20MG IN THE AM, 10MG in the afternoon 1 tablet 2023 Active 2023 46913 48907 1 Once daily By Mouth False Miralax 17 gram/dose oral powder 17 gram By Mouth Once daily For Constipation 17 gram 2023 Active 2023 10935 40685 0 Once daily By Mouth False Problems Code Description Start Date End Date Status A41.9 Sepsis, unspecified organism 07/07/2024 0000/0 000 Active VITAL SIGNS Date Time Diastolic blood pressure Systolic blood pressure Body height Body weight Temperature SpO2 Blood Sugar Pulse Respirations 122 10261 0 68.00 mm[Hg] - Sitting 101.00 mm[Hg] - Sitting 72 NI 234.60 NI 98.20 Tympanic 98.00 % 85.00/ min 18.00/min 122 83986 6 70.00 mm[Hg] - Lying Down 110.00 mm[Hg] - Lying Down 97.80 Tympanic 84.00/ min 18.00/min 123 30536 1 74.00 mm[Hg] - Lying Down 116.00 mm[Hg] - Lying Down 97.40 Tympanic 74.00/ min 18.00/min 123 38961 4 74.00 mm[Hg] - Sitting 116.00 mm[Hg] - Sitting 97.40 Tympanic 74.00/ min 18.00/min 123 51337 4 74.00 mm[Hg] - Sitting 116.00 mm[Hg] - Sitting 97.40 Tympanic 74.00/ min 18.00/min 123 26437 5 82.00 mm[Hg] - Lying Down 153.00 mm[Hg] - Lying Down 98.00 Tympanic 98.00 % 71.00/ min 20.00/min 123 60348 1 124 77710 6 82.00 mm[Hg] - Lying Down 153.00 mm[Hg] - Lying Down 98.00 Tympanic 71.00/ min 20.00/min 124 97754 5 82.00 mm[Hg] - Sitting 153.00 mm[Hg] - Sitting 98.00 Tympanic 71.00/ min 20.00/min 124 49586 0 62.00 mm[Hg] - Sitting 113.00 mm[Hg] - Sitting 97.80 Tympanic 72.00/ min 18.00/min 124 17273 0 62.00 mm[Hg] - Sitting 113.00 mm[Hg] - Sitting 97.80 Forehead Scan 95.00 % 72.00/ min 18.00/min 124 34823 5 77.00 mm[Hg] - Sitting 145.00 mm[Hg] - Sitting 125 87456 5 66.00 mm[Hg] - Sitting 120.00 mm[Hg] - Sitting 97.10 Tympanic 78.00/ min 18.00/min 125 19900 7 68.00 mm[Hg] - Sitting 121.00 mm[Hg] - Sitting
--- OUTSIDE RECORDS SUMMARY | 2024-07-30 07:18 | External Medical Summary | Continuity Of Care Document ---
Author Name Unknown Address [address] [address] Organization [facility] [place] () Care Team Providers Care Artist Suspect Name Role Phone DO Mallory Amy Primary Care Provider [phone] Allergies Allergy Reaction Start Date End Date [...] 3 0.1 mL 07/08 Inactiv e 2023 96598 77647 0 1 time Intrad ermal False Tubersol 5 tub. unit/0.1 mL intradermal injection solution [Tuberculin PPD] 0.1mL Intradermal 1 time For PPD 2nd Step Give 2nd Step PPD Day 1 and Read results Day 3 (schedule 7 days after 1st READ) 0.1mL 07/08 Inactiv e 2023 66243 39147 0 1 time Intrad ermal False Tubersol 5 tub. unit/0.1 mL intradermal injection solution [Tuberculin PPD] 0.1 mL Intradermal 1 time For PPD Step 1 GIVE on Day 1 and read results Day 3 0.1 mL 07/10 Inactiv e 2023 08066 64592 0 1 time Intrad ermal False Tubersol 5 tub. unit/0.1 mL intradermal injection solution [Tuberculin PPD] 0.1mL Intradermal 1 time For PPD 2nd Step Give 2nd Step PPD Day 1 and Read results Day 3 (schedule 7 days after 1st READ) 0.1mL 07/19 Active 2023 39300 82331 0 1 time Intrad ermal False Tylenol 325 mg tablet 2 tabs By Mouth Every 4 hours as needed For Pain DO NOT EXCEED 3000 MG APAP/24 Hours 2 tabs 2023 Active 2023 44279 03825 0 Every 4 hours as needed By Mouth False Tylenol 325 mg tablet 2 tabs By Mouth Every 4 hours as needed For Fever >100 DO NOT EXCEED 3000 MG APAP/24 Hours 2 tabs 2023 Active 2023 88718 68405 0 Every 4 hours as needed By Mouth False Dulcolax (bisacodyl) 10 mg rectal suppository One Suppository per rectum PRN if Milk of Magnisia ineffective. Give on day 5 of no BM 1 sup 2023 Active 2023 06756 66118 1 Daily as needed Rectal False Fleet Enema 19 gram-7 gram/118 mL Administer per rectum PRN one time if dulcolax suppository not effective. Give on day 6 of no BM 1 2023 Active 2023 66903 78596 6 Daily as needed Rectal False Milk of Magnesia 400 mg/5 mL oral suspension [Magnesium hydroxide] PRN 30ml By Mouth Daily as needed for constipation one time daily if no BM, on day 4 of no BM (PRN refer to instructions) For Constipation 30 mL 07/08 Inactiv e 2023 08363 20385 6 Daily as needed By Mouth False Nitroglycer in 0.4 mg sublingual tablet [generic] PRN 0.4 mg Sublingual Every 5 minutes as needed Every 5 min PRN x 3 doses PRN chest pain and notify provider For Chest Pain 0.4 mg 2023 Active 2023 26280 89563 5 Every 5 minutes as needed Sublin gual False Aripiprazol e 5 mg tablet [generic] 1/2 Tab By Mouth Once daily For depression 1/2 Tab 2023 Active 2023 71355 34267 1 Once daily By Mouth False Escitalopra m 5 mg tablet [generic] 1 tablet By Mouth Once daily For depression 1 tablet 2023 Active 2023 32830 19545 1 Once daily By Mouth False Probiotic (B. coagulans) 1 billion cell chewable tablet 1 tablet By Mouth Once daily For supplement 1 tablet 2023 Active 2023 83231 14298 7 Once daily By Mouth False Memantine 10 mg tablet [generic] 1 tablet By Mouth Twice daily For alzheimers 1 tablet 2023 Active 2023 89495 76318 0 Twice daily By Mouth False Lidocaine 4 % topical patch [generic] 2 patches Topical - apply in the morning and remove at night For pain 2 patches 2023 Active 2023 16282 14158 0 Twice daily Topica l False Nystatin (bulk) 1 billion unit powder [generic] apply Topically twice daily to affected skin For fungal skin infection apply 2023 Active 2023 96301 55644 6 Twice daily Topica l False Nystatin (bulk) 1 billion unit powder [generic] apply Topical Twice daily For fungal skin breakdown apply 2023 Active 2023 84803 44168 6 Twice daily Topica l False Albuterol sulfate HFA 90 mcg/actuati on aerosol inhaler [generic] 2 puffs Inhalation Every 4 hours As Needed For COPD 2 puffs 2023 Active 2023 77544 15823 2 Every 4 hours Inhala tion False Ascorbic acid (vitamin C) 1,000 mg capsule [generic] 1 tablet By Mouth Once daily For supplement 1 tablet 2023 Active 2023 03531 37645 2 Once daily By Mouth False Epinephrine 0.1 mg/mL injection syringe [generic] 1 dose Intramuscular As Needed for For anaphylaxis 1 dose 2023 Active 2023 12405 42460 1 Intram uscula r False Magnesium 64 mg (magnesium chloride) tablet,opal yed release [generic] 1 tablet By Mouth Twice daily For supplement 1 tablet 2023 Active 2023 83426 20871 6 Twice daily By Mouth False Multivitami n tablet [generic] 1 tablet By Mouth Once daily For supplement 1 tablet 2023 Active 2023 83277 31888 4 Once daily By Mouth False Senna 8.6 mg tablet 1 tablet By Mouth Once daily For constipation 1 tablet 2023 Active 2023 84641 19820 1 Once daily By Mouth False Solifenacin 5 mg tablet [generic] 1 tablet By Mouth Once daily For pulmonary hypertension 1 tablet 2023 Active 2023 48561 32121 0 Once daily By Mouth False Aspirin 81 mg tablet,opal yed release [generic] 1 tablet By Mouth Once daily For DVT prevention 1 tablet 2023 Active 2023 12771 78615 9 Once daily By Mouth False Cholecalcif emily (vitamin D3) 1,250 mcg (50,000 unit) capsule [generic] 1 tablet By Mouth Once daily For supplement 1 tablet 2023 Active 2023 53012 56374 6 Once daily By Mouth False Cyanocobala min (vit B-12) 1,000 mcg tablet [generic] 1 tablet By Mouth Once daily For supplement 1 tablet 2023 Active 2023 03923 63691 5 Once daily By Mouth False Ferrous sulfate 325 mg (65 mg iron) tablet [generic] 1 tablet By Mouth Once daily For supplement 1 tablet 2023 Active 2023 19963 88384 5 Once daily By Mouth False Fludrocorti sone 0.1 mg tablet [generic] 1 tablet by mouth Once daily For adrenal insufficiency 1 tablet 2023 Active 2023 80716 50158 1 Once daily By Mouth False Omeprazole 20 mg capsule,del ayed release [generic] 1 tablet By Mouth Once daily before breakfast For GERD 1 tablet 2023 Active 2023 35855 89017 1 Once daily By Mouth False Trelegy Ellipta 100 mcg-62.5 mcg-25 mcg powder for inhalation 1 inhalation Inhalation Once daily For copd 1 inhalat ion 2023 Active 2023 93152 57670 0 Once daily Inhala tion False Hydrocortis one 20 mg tablet [generic] 1 tablet By Mouth Once daily For COPD 1 tablet 07/07 Inactiv e 2023 46495 99703 1 Once daily By Mouth False Hydrocortis one 10 mg tablet [generic] 1 tablet By Mouth Once daily in the afternoon - BE AWARE HYDROCORTISON E 20MG IN THE AM, 10MG in the afternoon For COPD 1 tablet 2023 Active 2023 58480 64676 1 Once daily By Mouth False Hydrocortis one 20 mg tablet [generic] 07/07 Inactiv e 2023 71236 81330 1 Hydrocortis one 20 mg tablet [generic] 1 tablet By Mouth Once daily For COPD - BE AWARE HYDROCORTISON E 20MG IN THE AM, 10MG in the afternoon 1 tablet 2023 Active 2023 52594 42908 1 Once daily By Mouth False Miralax 17 gram/dose oral powder 17 gram By Mouth Once daily For Constipation 17 gram 2023 Active 2023 82325 50817 0 Once daily By Mouth False VITAL SIGNS Date Time Diastolic blood pressure Systolic blood pressure Body height Body weight Temperature SpO2 Blood Sugar Pulse Respirations 122 86226 0 68.00 mm[Hg] - Sitting 101.00 mm[Hg] - Sitting 72 NI 234.60 NI 98.20 Tympanic 98.00 % 85.00/ min 18.00/min 122 67404 6 70.00 mm[Hg] - Lying Down 110.00 mm[Hg] - Lying Down 97.80 Tympanic 84.00/ min 18.00/min 123 20802 1 74.00 mm[Hg] - Lying Down 116.00 mm[Hg] - Lying Down 97.40 Tympanic 74.00/ min 18.00/min 123 51458 4 74.00 mm[Hg] - Sitting 116.00 mm[Hg] - Sitting 97.40 Tympanic 74.00/ min 18.00/min 123 28707 4 74.00 mm[Hg] - Sitting 116.00 mm[Hg] - Sitting 97.40 Tympanic 74.00/ min 18.00/min 123 70945 5 82.00 mm[Hg] - Lying Down 153.00 mm[Hg] - Lying Down 98.00 Tympanic 98.00 % 71.00/ min 20.00/min 123 68520 1 33300 124 57344 6 82.00 mm[Hg] - Lying Down 153.00 mm[Hg] - Lying Down 98.00 Tympanic 71.00/ min 20.00/min 124 49780 5 82.00 mm[Hg] - Sitting 153.00 mm[Hg] - Sitting 98.00 Tympanic 71.00/ min 20.00/min 124 05715 0 62.00 mm[Hg] - Sitting 113.00 mm[Hg] - Sitting 97.80 Tympanic 72.00/ min 18.00/min 124 30642 0 62.00 mm[Hg] - Sitting 113.00 mm[Hg] - Sitting 97.80 Forehead Scan 95.00 % 72.00/ min 18.00/min 124 61109 5 77.00 mm[Hg] - Sitting 145.00 mm[Hg] - Sitting 125 40181 5 66.00 mm[Hg] - Sitting 120.00 mm[Hg] - Sitting 97.10 Tympanic 78.00/ min 18.00/min
--- OUTSIDE RECORDS SUMMARY | 2024-07-30 07:18 | External Medical Summary | Continuity Of Care Document ---
Author Name Unknown Address [address] [address] Organization [facility] [place] () Care Team Providers Care Lining Printer Name Role Phone DO Mallory Amy Primary Care Provider [phone] Allergies Allergy Reaction Start Date End Date [...] 3 0.1 mL 07/08 Inactiv e 2023 18594 82003 0 1 time Intrad ermal False Tubersol 5 tub. unit/0.1 mL intradermal injection solution [Tuberculin PPD] 0.1mL Intradermal 1 time For PPD 2nd Step Give 2nd Step PPD Day 1 and Read results Day 3 (schedule 7 days after 1st READ) 0.1mL 07/08 Inactiv e 2023 48823 51193 0 1 time Intrad ermal False Tubersol 5 tub. unit/0.1 mL intradermal injection solution [Tuberculin PPD] 0.1 mL Intradermal 1 time For PPD Step 1 GIVE on Day 1 and read results Day 3 0.1 mL 07/10 Inactiv e 2023 32735 52675 0 1 time Intrad ermal False Tubersol 5 tub. unit/0.1 mL intradermal injection solution [Tuberculin PPD] 0.1mL Intradermal 1 time For PPD 2nd Step Give 2nd Step PPD Day 1 and Read results Day 3 (schedule 7 days after 1st READ) 0.1mL 07/19 Active 2023 46412 95533 0 1 time Intrad ermal False Tylenol 325 mg tablet 2 tabs By Mouth Every 4 hours as needed For Pain DO NOT EXCEED 3000 MG APAP/24 Hours 2 tabs 2023 Active 2023 62829 77837 0 Every 4 hours as needed By Mouth False Tylenol 325 mg tablet 2 tabs By Mouth Every 4 hours as needed For Fever >100 DO NOT EXCEED 3000 MG APAP/24 Hours 2 tabs 2023 Active 2023 54771 32168 0 Every 4 hours as needed By Mouth False Dulcolax (bisacodyl) 10 mg rectal suppository One Suppository per rectum PRN if Milk of Magnisia ineffective. Give on day 5 of no BM 1 sup 2023 Active 2023 92545 97744 1 Daily as needed Rectal False Fleet Enema 19 gram-7 gram/118 mL Administer per rectum PRN one time if dulcolax suppository not effective. Give on day 6 of no BM 1 2023 Active 2023 83689 12245 6 Daily as needed Rectal False Milk of Magnesia 400 mg/5 mL oral suspension [Magnesium hydroxide] PRN 30ml By Mouth Daily as needed for constipation one time daily if no BM, on day 4 of no BM (PRN refer to instructions) For Constipation 30 mL 07/08 Inactiv e 2023 39197 80732 6 Daily as needed By Mouth False Nitroglycer in 0.4 mg sublingual tablet [generic] PRN 0.4 mg Sublingual Every 5 minutes as needed Every 5 min PRN x 3 doses PRN chest pain and notify provider For Chest Pain 0.4 mg 2023 Active 2023 61847 20954 5 Every 5 minutes as needed Sublin gual False Aripiprazol e 5 mg tablet [generic] 1/2 Tab By Mouth Once daily For depression 1/2 Tab 2023 Active 2023 38366 68566 1 Once daily By Mouth False Escitalopra m 5 mg tablet [generic] 1 tablet By Mouth Once daily For depression 1 tablet 2023 Active 2023 50451 47486 1 Once daily By Mouth False Probiotic (B. coagulans) 1 billion cell chewable tablet 1 tablet By Mouth Once daily For supplement 1 tablet 2023 Active 2023 94504 18718 7 Once daily By Mouth False Memantine 10 mg tablet [generic] 1 tablet By Mouth Twice daily For alzheimers 1 tablet 2023 Active 2023 57744 26088 0 Twice daily By Mouth False Lidocaine 4 % topical patch [generic] 2 patches Topical - apply in the morning and remove at night For pain 2 patches 2023 Active 2023 24719 77740 0 Twice daily Topica l False Nystatin (bulk) 1 billion unit powder [generic] apply Topically twice daily to affected skin For fungal skin infection apply 2023 Active 2023 43250 18893 6 Twice daily Topica l False Nystatin (bulk) 1 billion unit powder [generic] apply Topical Twice daily For fungal skin breakdown apply 2023 Active 2023 92609 04052 6 Twice daily Topica l False Albuterol sulfate HFA 90 mcg/actuati on aerosol inhaler [generic] 2 puffs Inhalation Every 4 hours As Needed For COPD 2 puffs 2023 Active 2023 86644 48520 2 Every 4 hours Inhala tion False Ascorbic acid (vitamin C) 1,000 mg capsule [generic] 1 tablet By Mouth Once daily For supplement 1 tablet 2023 Active 2023 36746 76004 2 Once daily By Mouth False Epinephrine 0.1 mg/mL injection syringe [generic] 1 dose Intramuscular As Needed for For anaphylaxis 1 dose 2023 Active 2023 37059 21889 1 Intram uscula r False Magnesium 64 mg (magnesium chloride) tablet,opal yed release [generic] 1 tablet By Mouth Twice daily For supplement 1 tablet 2023 Active 2023 19233 67741 6 Twice daily By Mouth False Multivitami n tablet [generic] 1 tablet By Mouth Once daily For supplement 1 tablet 2023 Active 2023 52616 71603 4 Once daily By Mouth False Senna 8.6 mg tablet 1 tablet By Mouth Once daily For constipation 1 tablet 2023 Active 2023 95643 25960 1 Once daily By Mouth False Solifenacin 5 mg tablet [generic] 1 tablet By Mouth Once daily For pulmonary hypertension 1 tablet 2023 Active 2023 72667 46689 0 Once daily By Mouth False Aspirin 81 mg tablet,opal yed release [generic] 1 tablet By Mouth Once daily For DVT prevention 1 tablet 2023 Active 2023 62500 39292 9 Once daily By Mouth False Cholecalcif emily (vitamin D3) 1,250 mcg (50,000 unit) capsule [generic] 1 tablet By Mouth Once daily For supplement 1 tablet 2023 Active 2023 19694 47413 6 Once daily By Mouth False Cyanocobala min (vit B-12) 1,000 mcg tablet [generic] 1 tablet By Mouth Once daily For supplement 1 tablet 2023 Active 2023 78885 05824 5 Once daily By Mouth False Ferrous sulfate 325 mg (65 mg iron) tablet [generic] 1 tablet By Mouth Once daily For supplement 1 tablet 2023 Active 2023 16300 46057 5 Once daily By Mouth False Fludrocorti sone 0.1 mg tablet [generic] 1 tablet by mouth Once daily For adrenal insufficiency 1 tablet 2023 Active 2023 10846 87520 1 Once daily By Mouth False Omeprazole 20 mg capsule,del ayed release [generic] 1 tablet By Mouth Once daily before breakfast For GERD 1 tablet 2023 Active 2023 61608 69113 1 Once daily By Mouth False Trelegy Ellipta 100 mcg-62.5 mcg-25 mcg powder for inhalation 1 inhalation Inhalation Once daily For copd 1 inhalat ion 2023 Active 2023 67196 68036 0 Once daily Inhala tion False Hydrocortis one 20 mg tablet [generic] 1 tablet By Mouth Once daily For COPD 1 tablet 07/07 Inactiv e 2023 38606 19637 1 Once daily By Mouth False Hydrocortis one 10 mg tablet [generic] 1 tablet By Mouth Once daily in the afternoon - BE AWARE HYDROCORTISON E 20MG IN THE AM, 10MG in the afternoon For COPD 1 tablet 2023 Active 2023 07883 17865 1 Once daily By Mouth False Hydrocortis one 20 mg tablet [generic] 07/07 Inactiv e 2023 47810 26817 1 Hydrocortis one 20 mg tablet [generic] 1 tablet By Mouth Once daily For COPD - BE AWARE HYDROCORTISON E 20MG IN THE AM, 10MG in the afternoon 1 tablet 2023 Active 2023 80115 81093 1 Once daily By Mouth False Miralax 17 gram/dose oral powder 17 gram By Mouth Once daily For Constipation 17 gram 2023 Active 2023 64586 61849 0 Once daily By Mouth False VITAL SIGNS Date Time Diastolic blood pressure Systolic blood pressure Body height Body weight Temperature SpO2 Blood Sugar Pulse Respirations 122 83875 0 68.00 mm[Hg] - Sitting 101.00 mm[Hg] - Sitting 72 NI 234.60 NI 98.20 Tympanic 98.00 % 85.00/ min 18.00/min 122 63204 6 70.00 mm[Hg] - Lying Down 110.00 mm[Hg] - Lying Down 97.80 Tympanic 84.00/ min 18.00/min 123 62551 1 74.00 mm[Hg] - Lying Down 116.00 mm[Hg] - Lying Down 97.40 Tympanic 74.00/ min 18.00/min 123 32631 4 74.00 mm[Hg] - Sitting 116.00 mm[Hg] - Sitting 97.40 Tympanic 74.00/ min 18.00/min 123 51026 4 74.00 mm[Hg] - Sitting 116.00 mm[Hg] - Sitting 97.40 Tympanic 74.00/ min 18.00/min 123 45882 5 82.00 mm[Hg] - Lying Down 153.00 mm[Hg] - Lying Down 98.00 Tympanic 98.00 % 71.00/ min 20.00/min 123 07190 1 06826 124 39709 6 82.00 mm[Hg] - Lying Down 153.00 mm[Hg] - Lying Down 98.00 Tympanic 71.00/ min 20.00/min 124 70655 5 82.00 mm[Hg] - Sitting 153.00 mm[Hg] - Sitting 98.00 Tympanic 71.00/ min 20.00/min 124 65992 0 62.00 mm[Hg] - Sitting 113.00 mm[Hg] - Sitting 97.80 Tympanic 72.00/ min 18.00/min 124 36834 0 62.00 mm[Hg] - Sitting 113.00 mm[Hg] - Sitting 97.80 Forehead Scan 95.00 % 72.00/ min 18.00/min 124 51637 5 77.00 mm[Hg] - Sitting 145.00 mm[Hg] - Sitting 125 76762 5 66.00 mm[Hg] - Sitting 120.00 mm[Hg] - Sitting 97.10 Tympanic 78.00/ min 18.00/min
--- OUTSIDE RECORDS SUMMARY | 2024-07-30 07:19 | External Medical Summary | Continuity Of Care Document ---
Author Name Unknown Address [address] [address] Organization [facility] [place] () Care Team Providers Care Data Entry Manager Name Role Phone DO Mallory Amy Primary Care Provider [phone] Allergies Allergy Reaction Start Date End Date [...] 3 0.1 mL 07/08 Inactiv e 2023 49921 03872 0 1 time Intrad ermal False Tubersol 5 tub. unit/0.1 mL intradermal injection solution [Tuberculin PPD] 0.1mL Intradermal 1 time For PPD 2nd Step Give 2nd Step PPD Day 1 and Read results Day 3 (schedule 7 days after 1st READ) 0.1mL 07/08 Inactiv e 2023 87812 47019 0 1 time Intrad ermal False Tubersol 5 tub. unit/0.1 mL intradermal injection solution [Tuberculin PPD] 0.1 mL Intradermal 1 time For PPD Step 1 GIVE on Day 1 and read results Day 3 0.1 mL 07/10 Active 2023 19952 11295 0 1 time Intrad ermal False Tubersol 5 tub. unit/0.1 mL intradermal injection solution [Tuberculin PPD] 0.1mL Intradermal 1 time For PPD 2nd Step Give 2nd Step PPD Day 1 and Read results Day 3 (schedule 7 days after 1st READ) 0.1mL 2023 Active 2023 13226 61280 0 1 time Intrad ermal False Tylenol 325 mg tablet 2 tabs By Mouth Every 4 hours as needed For Pain DO NOT EXCEED 3000 MG APAP/24 Hours 2 tabs 2023 Active 2023 67209 52025 0 Every 4 hours as needed By Mouth False Tylenol 325 mg tablet 2 tabs By Mouth Every 4 hours as needed For Fever >100 DO NOT EXCEED 3000 MG APAP/24 Hours 2 tabs 2023 Active 2023 40258 40864 0 Every 4 hours as needed By Mouth False Dulcolax (bisacodyl) 10 mg rectal suppository One Suppository per rectum PRN if Milk of Magnisia ineffective. Give on day 5 of no BM 1 sup 2023 Active 2023 93907 99323 1 Daily as needed Rectal False Fleet Enema 19 gram-7 gram/118 mL Administer per rectum PRN one time if dulcolax suppository not effective. Give on day 6 of no BM 1 2023 Active 2023 39554 72756 6 Daily as needed Rectal False Milk of Magnesia 400 mg/5 mL oral suspension [Magnesium hydroxide] PRN 30ml By Mouth Daily as needed for constipation one time daily if no BM, on day 4 of no BM (PRN refer to instructions) For Constipation 30 mL 2023 Active 2023 17790 26265 6 Daily as needed By Mouth False Nitroglycer in 0.4 mg sublingual tablet [generic] PRN 0.4 mg Sublingual Every 5 minutes as needed Every 5 min PRN x 3 doses PRN chest pain and notify provider For Chest Pain 0.4 mg 2023 Active 2023 85692 35931 5 Every 5 minutes as needed Sublin gual False Aripiprazol e 5 mg tablet [generic] 1/2 Tab By Mouth Once daily For depression 1/2 Tab 2023 Active 2023 06005 14541 1 Once daily By Mouth False Escitalopra m 5 mg tablet [generic] 1 tablet By Mouth Once daily For depression 1 tablet 2023 Active 2023 01330 41175 1 Once daily By Mouth False Probiotic (B. coagulans) 1 billion cell chewable tablet 1 tablet By Mouth Once daily For supplement 1 tablet 2023 Active 2023 10028 16590 7 Once daily By Mouth False Memantine 10 mg tablet [generic] 1 tablet By Mouth Twice daily For alzheimers 1 tablet 2023 Active 2023 57985 51693 0 Twice daily By Mouth False Lidocaine 4 % topical patch [generic] 2 patches Topical - apply in the morning and remove at night For pain 2 patches 2023 Active 2023 59739 81675 0 Twice daily Topica l False Nystatin (bulk) 1 billion unit powder [generic] apply Topically twice daily to affected skin For fungal skin infection apply 2023 Active 2023 94353 03689 6 Twice daily Topica l False Nystatin (bulk) 1 billion unit powder [generic] apply Topical Twice daily For fungal skin breakdown apply 2023 Active 2023 44680 82493 6 Twice daily Topica l False Albuterol sulfate HFA 90 mcg/actuati on aerosol inhaler [generic] 2 puffs Inhalation Every 4 hours As Needed For COPD 2 puffs 2023 Active 2023 42542 65233 2 Every 4 hours Inhala tion False Ascorbic acid (vitamin C) 1,000 mg capsule [generic] 1 tablet By Mouth Once daily For supplement 1 tablet 2023 Active 2023 53391 60678 2 Once daily By Mouth False Epinephrine 0.1 mg/mL injection syringe [generic] 1 dose Intramuscular As Needed for For anaphylaxis 1 dose 2023 Active 2023 64475 61689 1 Intram uscula r False Magnesium 64 mg (magnesium chloride) tablet,opal yed release [generic] 1 tablet By Mouth Twice daily For supplement 1 tablet 2023 Active 2023 84691 35737 6 Twice daily By Mouth False Multivitami n tablet [generic] 1 tablet By Mouth Once daily For supplement 1 tablet 2023 Active 2023 07474 51493 4 Once daily By Mouth False Senna 8.6 mg tablet 1 tablet By Mouth Once daily For constipation 1 tablet 2023 Active 2023 66569 53434 1 Once daily By Mouth False Solifenacin 5 mg tablet [generic] 1 tablet By Mouth Once daily For pulmonary hypertension 1 tablet 2023 Active 2023 84965 04586 0 Once daily By Mouth False Aspirin 81 mg tablet,opal yed release [generic] 1 tablet By Mouth Once daily For DVT prevention 1 tablet 2023 Active 2023 56824 00115 9 Once daily By Mouth False Cholecalcif emily (vitamin D3) 1,250 mcg (50,000 unit) capsule [generic] 1 tablet By Mouth Once daily For supplement 1 tablet 2023 Active 2023 89685 43484 6 Once daily By Mouth False Cyanocobala min (vit B-12) 1,000 mcg tablet [generic] 1 tablet By Mouth Once daily For supplement 1 tablet 2023 Active 2023 40571 79401 5 Once daily By Mouth False Ferrous sulfate 325 mg (65 mg iron) tablet [generic] 1 tablet By Mouth Once daily For supplement 1 tablet 2023 Active 2023 38860 12072 5 Once daily By Mouth False Fludrocorti sone 0.1 mg tablet [generic] 1 tablet by mouth Once daily For adrenal insufficiency 1 tablet 2023 Active 2023 13311 48531 1 Once daily By Mouth False Omeprazole 20 mg capsule,del ayed release [generic] 1 tablet By Mouth Once daily before breakfast For GERD 1 tablet 2023 Active 2023 77376 11328 1 Once daily By Mouth False Trelegy Ellipta 100 mcg-62.5 mcg-25 mcg powder for inhalation 1 inhalation Inhalation Once daily For copd 1 inhalat ion 2023 Active 2023 80346 50674 0 Once daily Inhala tion False Hydrocortis one 20 mg tablet [generic] 1 tablet By Mouth Once daily For COPD 1 tablet 07/07 Inactiv e 2023 45077 33110 1 Once daily By Mouth False Hydrocortis one 10 mg tablet [generic] 1 tablet By Mouth Once daily in the afternoon - BE AWARE HYDROCORTISON E 20MG IN THE AM, 10MG in the afternoon For COPD 1 tablet 2023 Active 2023 42319 30385 1 Once daily By Mouth False Hydrocortis one 20 mg tablet [generic] 07/07 Inactiv e 2023 23751 96946 1 Hydrocortis one 20 mg tablet [generic] 1 tablet By Mouth Once daily For COPD - BE AWARE HYDROCORTISON E 20MG IN THE AM, 10MG in the afternoon 1 tablet 2023 Active 2023 68472 24500 1 Once daily By Mouth False VITAL SIGNS Date Time Diastolic blood pressure Systolic blood pressure Body height Body weight Temperature SpO2 Blood Sugar Pulse Respirations 122 68930 0 68.00 mm[Hg] - Sitting 101.00 mm[Hg] - Sitting 72 NI 234.60 NI 98.20 Tympanic 98.00 % 85.00/ min 18.00/min 122 22752 6 70.00 mm[Hg] - Lying Down 110.00 mm[Hg] - Lying Down 97.80 Tympanic 84.00/ min 18.00/min
--- OUTSIDE RECORDS SUMMARY | 2024-07-30 07:19 | External Medical Summary | Continuity Of Care Document ---
Author Name Unknown Address [address] [address] Organization [facility] [place] () Care Team Providers Care Senior Engineering Technician Name Role Phone DO Mallory Amy Primary Care Provider [phone] Allergies Allergy Reaction Start Date End Date [...] 3 0.1 mL 07/08 Inactiv e 2023 98020 47048 0 1 time Intrad ermal False Tubersol 5 tub. unit/0.1 mL intradermal injection solution [Tuberculin PPD] 0.1mL Intradermal 1 time For PPD 2nd Step Give 2nd Step PPD Day 1 and Read results Day 3 (schedule 7 days after 1st READ) 0.1mL 07/08 Inactiv e 2023 32498 78616 0 1 time Intrad ermal False Tubersol 5 tub. unit/0.1 mL intradermal injection solution [Tuberculin PPD] 0.1 mL Intradermal 1 time For PPD Step 1 GIVE on Day 1 and read results Day 3 0.1 mL 07/10 Active 2023 92601 28382 0 1 time Intrad ermal False Tubersol 5 tub. unit/0.1 mL intradermal injection solution [Tuberculin PPD] 0.1mL Intradermal 1 time For PPD 2nd Step Give 2nd Step PPD Day 1 and Read results Day 3 (schedule 7 days after 1st READ) 0.1mL 07/19 Active 2023 40746 63629 0 1 time Intrad ermal False Tylenol 325 mg tablet 2 tabs By Mouth Every 4 hours as needed For Pain DO NOT EXCEED 3000 MG APAP/24 Hours 2 tabs 2023 Active 2023 67245 25210 0 Every 4 hours as needed By Mouth False Tylenol 325 mg tablet 2 tabs By Mouth Every 4 hours as needed For Fever >100 DO NOT EXCEED 3000 MG APAP/24 Hours 2 tabs 2023 Active 2023 27973 94754 0 Every 4 hours as needed By Mouth False Dulcolax (bisacodyl) 10 mg rectal suppository One Suppository per rectum PRN if Milk of Magnisia ineffective. Give on day 5 of no BM 1 sup 2023 Active 2023 43985 33924 1 Daily as needed Rectal False Fleet Enema 19 gram-7 gram/118 mL Administer per rectum PRN one time if dulcolax suppository not effective. Give on day 6 of no BM 1 2023 Active 2023 05343 96397 6 Daily as needed Rectal False Milk of Magnesia 400 mg/5 mL oral suspension [Magnesium hydroxide] PRN 30ml By Mouth Daily as needed for constipation one time daily if no BM, on day 4 of no BM (PRN refer to instructions) For Constipation 30 mL 2023 Active 2023 24753 49226 6 Daily as needed By Mouth False Nitroglycer in 0.4 mg sublingual tablet [generic] PRN 0.4 mg Sublingual Every 5 minutes as needed Every 5 min PRN x 3 doses PRN chest pain and notify provider For Chest Pain 0.4 mg 2023 Active 2023 64604 14565 5 Every 5 minutes as needed Sublin gual False Aripiprazol e 5 mg tablet [generic] 1/2 Tab By Mouth Once daily For depression 1/2 Tab 2023 Active 2023 37709 04495 1 Once daily By Mouth False Escitalopra m 5 mg tablet [generic] 1 tablet By Mouth Once daily For depression 1 tablet 2023 Active 2023 94169 28157 1 Once daily By Mouth False Probiotic (B. coagulans) 1 billion cell chewable tablet 1 tablet By Mouth Once daily For supplement 1 tablet 2023 Active 2023 40474 30499 7 Once daily By Mouth False Memantine 10 mg tablet [generic] 1 tablet By Mouth Twice daily For alzheimers 1 tablet 2023 Active 2023 16229 05049 0 Twice daily By Mouth False Lidocaine 4 % topical patch [generic] 2 patches Topical - apply in the morning and remove at night For pain 2 patches 2023 Active 2023 25900 92225 0 Twice daily Topica l False Nystatin (bulk) 1 billion unit powder [generic] apply Topically twice daily to affected skin For fungal skin infection apply 2023 Active 2023 47707 14769 6 Twice daily Topica l False Nystatin (bulk) 1 billion unit powder [generic] apply Topical Twice daily For fungal skin breakdown apply 2023 Active 2023 67713 81174 6 Twice daily Topica l False Albuterol sulfate HFA 90 mcg/actuati on aerosol inhaler [generic] 2 puffs Inhalation Every 4 hours As Needed For COPD 2 puffs 2023 Active 2023 76448 80064 2 Every 4 hours Inhala tion False Ascorbic acid (vitamin C) 1,000 mg capsule [generic] 1 tablet By Mouth Once daily For supplement 1 tablet 2023 Active 2023 84546 85579 2 Once daily By Mouth False Epinephrine 0.1 mg/mL injection syringe [generic] 1 dose Intramuscular As Needed for For anaphylaxis 1 dose 2023 Active 2023 46353 64468 1 Intram uscula r False Magnesium 64 mg (magnesium chloride) tablet,opal yed release [generic] 1 tablet By Mouth Twice daily For supplement 1 tablet 2023 Active 2023 49468 60208 6 Twice daily By Mouth False Multivitami n tablet [generic] 1 tablet By Mouth Once daily For supplement 1 tablet 2023 Active 2023 15614 81166 4 Once daily By Mouth False Senna 8.6 mg tablet 1 tablet By Mouth Once daily For constipation 1 tablet 2023 Active 2023 75553 89089 1 Once daily By Mouth False Solifenacin 5 mg tablet [generic] 1 tablet By Mouth Once daily For pulmonary hypertension 1 tablet 2023 Active 2023 61803 12155 0 Once daily By Mouth False Aspirin 81 mg tablet,opal yed release [generic] 1 tablet By Mouth Once daily For DVT prevention 1 tablet 2023 Active 2023 28534 57143 9 Once daily By Mouth False Cholecalcif emily (vitamin D3) 1,250 mcg (50,000 unit) capsule [generic] 1 tablet By Mouth Once daily For supplement 1 tablet 2023 Active 2023 51109 37784 6 Once daily By Mouth False Cyanocobala min (vit B-12) 1,000 mcg tablet [generic] 1 tablet By Mouth Once daily For supplement 1 tablet 2023 Active 2023 84712 97523 5 Once daily By Mouth False Ferrous sulfate 325 mg (65 mg iron) tablet [generic] 1 tablet By Mouth Once daily For supplement 1 tablet 2023 Active 2023 70667 85605 5 Once daily By Mouth False Fludrocorti sone 0.1 mg tablet [generic] 1 tablet by mouth Once daily For adrenal insufficiency 1 tablet 2023 Active 2023 63770 88743 1 Once daily By Mouth False Omeprazole 20 mg capsule,del ayed release [generic] 1 tablet By Mouth Once daily before breakfast For GERD 1 tablet 2023 Active 2023 43511 78493 1 Once daily By Mouth False Trelegy Ellipta 100 mcg-62.5 mcg-25 mcg powder for inhalation 1 inhalation Inhalation Once daily For copd 1 inhalat ion 2023 Active 2023 59150 09878 0 Once daily Inhala tion False Hydrocortis one 20 mg tablet [generic] 1 tablet By Mouth Once daily For COPD 1 tablet 07/07 Inactiv e 2023 11749 29129 1 Once daily By Mouth False Hydrocortis one 10 mg tablet [generic] 1 tablet By Mouth Once daily in the afternoon - BE AWARE HYDROCORTISON E 20MG IN THE AM, 10MG in the afternoon For COPD 1 tablet 2023 Active 2023 00189 33607 1 Once daily By Mouth False Hydrocortis one 20 mg tablet [generic] 07/07 Inactiv e 2023 10469 90633 1 Hydrocortis one 20 mg tablet [generic] 1 tablet By Mouth Once daily For COPD - BE AWARE HYDROCORTISON E 20MG IN THE AM, 10MG in the afternoon 1 tablet 2023 Active 2023 28897 24216 1 Once daily By Mouth False VITAL SIGNS Date Time Diastolic blood pressure Systolic blood pressure Body height Body weight Temperature SpO2 Blood Sugar Pulse Respirations 122 40229 0 68.00 mm[Hg] - Sitting 101.00 mm[Hg] - Sitting 72 NI 234.60 NI 98.20 Tympanic 98.00 % 85.00/ min 18.00/min 122 52056 6 70.00 mm[Hg] - Lying Down 110.00 mm[Hg] - Lying Down 97.80 Tympanic 84.00/ min 18.00/min
--- OUTSIDE RECORDS SUMMARY | 2024-07-30 07:19 | External Medical Summary | Continuity Of Care Document ---
Author Name Unknown Address [address] [address] Organization [facility] [place] () Care Team Providers Care Animal Tech Name Role Phone DO Mallory Amy Primary Care Provider [phone] Allergies Allergy Reaction Start Date End Date [...] 3 0.1 mL 07/08 Inactiv e 2023 98747 66430 0 1 time Intrad ermal False Tubersol 5 tub. unit/0.1 mL intradermal injection solution [Tuberculin PPD] 0.1mL Intradermal 1 time For PPD 2nd Step Give 2nd Step PPD Day 1 and Read results Day 3 (schedule 7 days after 1st READ) 0.1mL 07/08 Inactiv e 2023 35384 42742 0 1 time Intrad ermal False Tubersol 5 tub. unit/0.1 mL intradermal injection solution [Tuberculin PPD] 0.1 mL Intradermal 1 time For PPD Step 1 GIVE on Day 1 and read results Day 3 0.1 mL 07/10 Active 2023 98357 98752 0 1 time Intrad ermal False Tubersol 5 tub. unit/0.1 mL intradermal injection solution [Tuberculin PPD] 0.1mL Intradermal 1 time For PPD 2nd Step Give 2nd Step PPD Day 1 and Read results Day 3 (schedule 7 days after 1st READ) 0.1mL 07/19 Active 2023 34544 43914 0 1 time Intrad ermal False Tylenol 325 mg tablet 2 tabs By Mouth Every 4 hours as needed For Pain DO NOT EXCEED 3000 MG APAP/24 Hours 2 tabs 2023 Active 2023 10885 18482 0 Every 4 hours as needed By Mouth False Tylenol 325 mg tablet 2 tabs By Mouth Every 4 hours as needed For Fever >100 DO NOT EXCEED 3000 MG APAP/24 Hours 2 tabs 2023 Active 2023 78310 35188 0 Every 4 hours as needed By Mouth False Dulcolax (bisacodyl) 10 mg rectal suppository One Suppository per rectum PRN if Milk of Magnisia ineffective. Give on day 5 of no BM 1 sup 2023 Active 2023 36625 87978 1 Daily as needed Rectal False Fleet Enema 19 gram-7 gram/118 mL Administer per rectum PRN one time if dulcolax suppository not effective. Give on day 6 of no BM 1 2023 Active 2023 79445 00333 6 Daily as needed Rectal False Milk of Magnesia 400 mg/5 mL oral suspension [Magnesium hydroxide] PRN 30ml By Mouth Daily as needed for constipation one time daily if no BM, on day 4 of no BM (PRN refer to instructions) For Constipation 30 mL 07/08 Inactiv e 2023 54795 08044 6 Daily as needed By Mouth False Nitroglycer in 0.4 mg sublingual tablet [generic] PRN 0.4 mg Sublingual Every 5 minutes as needed Every 5 min PRN x 3 doses PRN chest pain and notify provider For Chest Pain 0.4 mg 2023 Active 2023 50325 38603 5 Every 5 minutes as needed Sublin gual False Aripiprazol e 5 mg tablet [generic] 1/2 Tab By Mouth Once daily For depression 1/2 Tab 2023 Active 2023 23566 26935 1 Once daily By Mouth False Escitalopra m 5 mg tablet [generic] 1 tablet By Mouth Once daily For depression 1 tablet 2023 Active 2023 09356 67403 1 Once daily By Mouth False Probiotic (B. coagulans) 1 billion cell chewable tablet 1 tablet By Mouth Once daily For supplement 1 tablet 2023 Active 2023 59125 93217 7 Once daily By Mouth False Memantine 10 mg tablet [generic] 1 tablet By Mouth Twice daily For alzheimers 1 tablet 2023 Active 2023 09695 42196 0 Twice daily By Mouth False Lidocaine 4 % topical patch [generic] 2 patches Topical - apply in the morning and remove at night For pain 2 patches 2023 Active 2023 09918 50540 0 Twice daily Topica l False Nystatin (bulk) 1 billion unit powder [generic] apply Topically twice daily to affected skin For fungal skin infection apply 2023 Active 2023 57289 11056 6 Twice daily Topica l False Nystatin (bulk) 1 billion unit powder [generic] apply Topical Twice daily For fungal skin breakdown apply 2023 Active 2023 58942 20124 6 Twice daily Topica l False Albuterol sulfate HFA 90 mcg/actuati on aerosol inhaler [generic] 2 puffs Inhalation Every 4 hours As Needed For COPD 2 puffs 2023 Active 2023 71110 45378 2 Every 4 hours Inhala tion False Ascorbic acid (vitamin C) 1,000 mg capsule [generic] 1 tablet By Mouth Once daily For supplement 1 tablet 2023 Active 2023 53732 54031 2 Once daily By Mouth False Epinephrine 0.1 mg/mL injection syringe [generic] 1 dose Intramuscular As Needed for For anaphylaxis 1 dose 2023 Active 2023 21551 97110 1 Intram uscula r False Magnesium 64 mg (magnesium chloride) tablet,opal yed release [generic] 1 tablet By Mouth Twice daily For supplement 1 tablet 2023 Active 2023 96244 04550 6 Twice daily By Mouth False Multivitami n tablet [generic] 1 tablet By Mouth Once daily For supplement 1 tablet 2023 Active 2023 17930 63081 4 Once daily By Mouth False Senna 8.6 mg tablet 1 tablet By Mouth Once daily For constipation 1 tablet 2023 Active 2023 67499 47707 1 Once daily By Mouth False Solifenacin 5 mg tablet [generic] 1 tablet By Mouth Once daily For pulmonary hypertension 1 tablet 2023 Active 2023 88278 18673 0 Once daily By Mouth False Aspirin 81 mg tablet,opal yed release [generic] 1 tablet By Mouth Once daily For DVT prevention 1 tablet 2023 Active 2023 25492 15732 9 Once daily By Mouth False Cholecalcif emily (vitamin D3) 1,250 mcg (50,000 unit) capsule [generic] 1 tablet By Mouth Once daily For supplement 1 tablet 2023 Active 2023 26593 50774 6 Once daily By Mouth False Cyanocobala min (vit B-12) 1,000 mcg tablet [generic] 1 tablet By Mouth Once daily For supplement 1 tablet 2023 Active 2023 49173 18094 5 Once daily By Mouth False Ferrous sulfate 325 mg (65 mg iron) tablet [generic] 1 tablet By Mouth Once daily For supplement 1 tablet 2023 Active 2023 51033 42816 5 Once daily By Mouth False Fludrocorti sone 0.1 mg tablet [generic] 1 tablet by mouth Once daily For adrenal insufficiency 1 tablet 2023 Active 2023 14866 48051 1 Once daily By Mouth False Omeprazole 20 mg capsule,del ayed release [generic] 1 tablet By Mouth Once daily before breakfast For GERD 1 tablet 2023 Active 2023 34604 51146 1 Once daily By Mouth False Trelegy Ellipta 100 mcg-62.5 mcg-25 mcg powder for inhalation 1 inhalation Inhalation Once daily For copd 1 inhalat ion 2023 Active 2023 95599 58993 0 Once daily Inhala tion False Hydrocortis one 20 mg tablet [generic] 1 tablet By Mouth Once daily For COPD 1 tablet 07/07 Inactiv e 2023 08721 63834 1 Once daily By Mouth False Hydrocortis one 10 mg tablet [generic] 1 tablet By Mouth Once daily in the afternoon - BE AWARE HYDROCORTISON E 20MG IN THE AM, 10MG in the afternoon For COPD 1 tablet 2023 Active 2023 54958 06624 1 Once daily By Mouth False Hydrocortis one 20 mg tablet [generic] 07/07 Inactiv e 2023 01790 07694 1 Hydrocortis one 20 mg tablet [generic] 1 tablet By Mouth Once daily For COPD - BE AWARE HYDROCORTISON E 20MG IN THE AM, 10MG in the afternoon 1 tablet 2023 Active 2023 46885 06641 1 Once daily By Mouth False Miralax 17 gram/dose oral powder 17 gram By Mouth Once daily For Constipation 17 gram 2023 Active 2023 43099 94969 0 Once daily By Mouth False VITAL SIGNS Date Time Diastolic blood pressure Systolic blood pressure Body height Body weight Temperature SpO2 Blood Sugar Pulse Respirations 122 02942 0 68.00 mm[Hg] - Sitting 101.00 mm[Hg] - Sitting 72 NI 234.60 NI 98.20 Tympanic 98.00 % 85.00/ min 18.00/min 122 74589 6 70.00 mm[Hg] - Lying Down 110.00 mm[Hg] - Lying Down 97.80 Tympanic 84.00/ min 18.00/min 123 44311 1 74.00 mm[Hg] - Lying Down 116.00 mm[Hg] - Lying Down 97.40 Tympanic 74.00/ min 18.00/min 123 49533 4 74.00 mm[Hg] - Sitting 116.00 mm[Hg] - Sitting 97.40 Tympanic 74.00/ min 18.00/min 86972 123 4 74.00 mm[Hg] - Sitting 116.00 mm[Hg] - Sitting 97.40 Tympanic 74.00/ min 18.00/min 123 57213 5 82.00 mm[Hg] - Lying Down 153.00 mm[Hg] - Lying Down 98.00 Tympanic 98.00 % 71.00/ min 20.00/min 123 13169 1 20679 124 23991 6 82.00 mm[Hg] - Lying Down 153.00 mm[Hg] - Lying Down 98.00 Tympanic 71.00/ min 20.00/min
--- OUTSIDE RECORDS SUMMARY | 2024-07-30 07:19 | External Medical Summary | Continuity Of Care Document ---
Author Name Unknown Address [address] [address] Organization [facility] [place] () Care Team Providers Care General Worker Name Role Phone DO Mallory Amy Primary Care Provider [phone] Allergies Allergy Reaction Start Date End Date [...] 3 0.1 mL 07/08 Inactiv e 2023 95779 42871 0 1 time Intrad ermal False Tubersol 5 tub. unit/0.1 mL intradermal injection solution [Tuberculin PPD] 0.1mL Intradermal 1 time For PPD 2nd Step Give 2nd Step PPD Day 1 and Read results Day 3 (schedule 7 days after 1st READ) 0.1mL 07/08 Inactiv e 2023 82253 25726 0 1 time Intrad ermal False Tubersol 5 tub. unit/0.1 mL intradermal injection solution [Tuberculin PPD] 0.1 mL Intradermal 1 time For PPD Step 1 GIVE on Day 1 and read results Day 3 0.1 mL 07/10 Active 2023 72654 57193 0 1 time Intrad ermal False Tubersol 5 tub. unit/0.1 mL intradermal injection solution [Tuberculin PPD] 0.1mL Intradermal 1 time For PPD 2nd Step Give 2nd Step PPD Day 1 and Read results Day 3 (schedule 7 days after 1st READ) 0.1mL 07/19 Active 2023 75336 86448 0 1 time Intrad ermal False Tylenol 325 mg tablet 2 tabs By Mouth Every 4 hours as needed For Pain DO NOT EXCEED 3000 MG APAP/24 Hours 2 tabs 2023 Active 2023 51143 83517 0 Every 4 hours as needed By Mouth False Tylenol 325 mg tablet 2 tabs By Mouth Every 4 hours as needed For Fever >100 DO NOT EXCEED 3000 MG APAP/24 Hours 2 tabs 2023 Active 2023 99582 69825 0 Every 4 hours as needed By Mouth False Dulcolax (bisacodyl) 10 mg rectal suppository One Suppository per rectum PRN if Milk of Magnisia ineffective. Give on day 5 of no BM 1 sup 2023 Active 2023 99237 53869 1 Daily as needed Rectal False Fleet Enema 19 gram-7 gram/118 mL Administer per rectum PRN one time if dulcolax suppository not effective. Give on day 6 of no BM 1 2023 Active 2023 91260 82882 6 Daily as needed Rectal False Milk of Magnesia 400 mg/5 mL oral suspension [Magnesium hydroxide] PRN 30ml By Mouth Daily as needed for constipation one time daily if no BM, on day 4 of no BM (PRN refer to instructions) For Constipation 30 mL 07/08 Inactiv e 2023 76045 37772 6 Daily as needed By Mouth False Nitroglycer in 0.4 mg sublingual tablet [generic] PRN 0.4 mg Sublingual Every 5 minutes as needed Every 5 min PRN x 3 doses PRN chest pain and notify provider For Chest Pain 0.4 mg 2023 Active 2023 19569 39681 5 Every 5 minutes as needed Sublin gual False Aripiprazol e 5 mg tablet [generic] 1/2 Tab By Mouth Once daily For depression 1/2 Tab 2023 Active 2023 56072 29121 1 Once daily By Mouth False Escitalopra m 5 mg tablet [generic] 1 tablet By Mouth Once daily For depression 1 tablet 2023 Active 2023 65383 20499 1 Once daily By Mouth False Probiotic (B. coagulans) 1 billion cell chewable tablet 1 tablet By Mouth Once daily For supplement 1 tablet 2023 Active 2023 68149 04864 7 Once daily By Mouth False Memantine 10 mg tablet [generic] 1 tablet By Mouth Twice daily For alzheimers 1 tablet 2023 Active 2023 83026 81626 0 Twice daily By Mouth False Lidocaine 4 % topical patch [generic] 2 patches Topical - apply in the morning and remove at night For pain 2 patches 2023 Active 2023 70482 41466 0 Twice daily Topica l False Nystatin (bulk) 1 billion unit powder [generic] apply Topically twice daily to affected skin For fungal skin infection apply 2023 Active 2023 21566 62841 6 Twice daily Topica l False Nystatin (bulk) 1 billion unit powder [generic] apply Topical Twice daily For fungal skin breakdown apply 2023 Active 2023 32899 00630 6 Twice daily Topica l False Albuterol sulfate HFA 90 mcg/actuati on aerosol inhaler [generic] 2 puffs Inhalation Every 4 hours As Needed For COPD 2 puffs 2023 Active 2023 23243 89775 2 Every 4 hours Inhala tion False Ascorbic acid (vitamin C) 1,000 mg capsule [generic] 1 tablet By Mouth Once daily For supplement 1 tablet 2023 Active 2023 48805 51076 2 Once daily By Mouth False Epinephrine 0.1 mg/mL injection syringe [generic] 1 dose Intramuscular As Needed for For anaphylaxis 1 dose 2023 Active 2023 97553 49936 1 Intram uscula r False Magnesium 64 mg (magnesium chloride) tablet,opal yed release [generic] 1 tablet By Mouth Twice daily For supplement 1 tablet 2023 Active 2023 15311 18545 6 Twice daily By Mouth False Multivitami n tablet [generic] 1 tablet By Mouth Once daily For supplement 1 tablet 2023 Active 2023 82477 62734 4 Once daily By Mouth False Senna 8.6 mg tablet 1 tablet By Mouth Once daily For constipation 1 tablet 2023 Active 2023 25695 51449 1 Once daily By Mouth False Solifenacin 5 mg tablet [generic] 1 tablet By Mouth Once daily For pulmonary hypertension 1 tablet 2023 Active 2023 95292 99660 0 Once daily By Mouth False Aspirin 81 mg tablet,opal yed release [generic] 1 tablet By Mouth Once daily For DVT prevention 1 tablet 2023 Active 2023 37953 06038 9 Once daily By Mouth False Cholecalcif emily (vitamin D3) 1,250 mcg (50,000 unit) capsule [generic] 1 tablet By Mouth Once daily For supplement 1 tablet 2023 Active 2023 92661 63645 6 Once daily By Mouth False Cyanocobala min (vit B-12) 1,000 mcg tablet [generic] 1 tablet By Mouth Once daily For supplement 1 tablet 2023 Active 2023 72833 92341 5 Once daily By Mouth False Ferrous sulfate 325 mg (65 mg iron) tablet [generic] 1 tablet By Mouth Once daily For supplement 1 tablet 2023 Active 2023 08151 33573 5 Once daily By Mouth False Fludrocorti sone 0.1 mg tablet [generic] 1 tablet by mouth Once daily For adrenal insufficiency 1 tablet 2023 Active 2023 35156 69729 1 Once daily By Mouth False Omeprazole 20 mg capsule,del ayed release [generic] 1 tablet By Mouth Once daily before breakfast For GERD 1 tablet 2023 Active 2023 96651 30411 1 Once daily By Mouth False Trelegy Ellipta 100 mcg-62.5 mcg-25 mcg powder for inhalation 1 inhalation Inhalation Once daily For copd 1 inhalat ion 2023 Active 2023 50514 18777 0 Once daily Inhala tion False Hydrocortis one 20 mg tablet [generic] 1 tablet By Mouth Once daily For COPD 1 tablet 07/07 Inactiv e 2023 90300 05039 1 Once daily By Mouth False Hydrocortis one 10 mg tablet [generic] 1 tablet By Mouth Once daily in the afternoon - BE AWARE HYDROCORTISON E 20MG IN THE AM, 10MG in the afternoon For COPD 1 tablet 2023 Active 2023 62181 30363 1 Once daily By Mouth False Hydrocortis one 20 mg tablet [generic] 07/07 Inactiv e 2023 35009 40469 1 Hydrocortis one 20 mg tablet [generic] 1 tablet By Mouth Once daily For COPD - BE AWARE HYDROCORTISON E 20MG IN THE AM, 10MG in the afternoon 1 tablet 2023 Active 2023 35336 90702 1 Once daily By Mouth False Miralax 17 gram/dose oral powder 17 gram By Mouth Once daily For Constipation 17 gram 2023 Active 2023 08801 89409 0 Once daily By Mouth False VITAL SIGNS Date Time Diastolic blood pressure Systolic blood pressure Body height Body weight Temperature SpO2 Blood Sugar Pulse Respirations 122 26325 0 68.00 mm[Hg] - Sitting 101.00 mm[Hg] - Sitting 72 NI 234.60 NI 98.20 Tympanic 98.00 % 85.00/ min 18.00/min 122 73316 6 70.00 mm[Hg] - Lying Down 110.00 mm[Hg] - Lying Down 97.80 Tympanic 84.00/ min 18.00/min 123 16675 1 74.00 mm[Hg] - Lying Down 116.00 mm[Hg] - Lying Down 97.40 Tympanic 74.00/ min 18.00/min
--- OUTSIDE RECORDS SUMMARY | 2024-07-30 07:19 | External Medical Summary | Continuity Of Care Document ---
Author Name Unknown Address [address] [address] Organization [facility] [place] () Care Team Providers Care Site Physician Name Role Phone DO Mallory Amy Primary Care Provider [phone] Allergies Allergy Reaction Start Date End Date [...] 3 0.1 mL 07/08 Inactiv e 2023 98600 56829 0 1 time Intrad ermal False Tubersol 5 tub. unit/0.1 mL intradermal injection solution [Tuberculin PPD] 0.1mL Intradermal 1 time For PPD 2nd Step Give 2nd Step PPD Day 1 and Read results Day 3 (schedule 7 days after 1st READ) 0.1mL 07/08 Inactiv e 2023 16500 99962 0 1 time Intrad ermal False Tubersol 5 tub. unit/0.1 mL intradermal injection solution [Tuberculin PPD] 0.1 mL Intradermal 1 time For PPD Step 1 GIVE on Day 1 and read results Day 3 0.1 mL 07/10 Active 2023 80188 44434 0 1 time Intrad ermal False Tubersol 5 tub. unit/0.1 mL intradermal injection solution [Tuberculin PPD] 0.1mL Intradermal 1 time For PPD 2nd Step Give 2nd Step PPD Day 1 and Read results Day 3 (schedule 7 days after 1st READ) 0.1mL 07/19 Active 2023 57275 80294 0 1 time Intrad ermal False Tylenol 325 mg tablet 2 tabs By Mouth Every 4 hours as needed For Pain DO NOT EXCEED 3000 MG APAP/24 Hours 2 tabs 2023 Active 2023 17424 68458 0 Every 4 hours as needed By Mouth False Tylenol 325 mg tablet 2 tabs By Mouth Every 4 hours as needed For Fever >100 DO NOT EXCEED 3000 MG APAP/24 Hours 2 tabs 2023 Active 2023 51404 13809 0 Every 4 hours as needed By Mouth False Dulcolax (bisacodyl) 10 mg rectal suppository One Suppository per rectum PRN if Milk of Magnisia ineffective. Give on day 5 of no BM 1 sup 2023 Active 2023 65225 58081 1 Daily as needed Rectal False Fleet Enema 19 gram-7 gram/118 mL Administer per rectum PRN one time if dulcolax suppository not effective. Give on day 6 of no BM 1 2023 Active 2023 38772 45328 6 Daily as needed Rectal False Milk of Magnesia 400 mg/5 mL oral suspension [Magnesium hydroxide] PRN 30ml By Mouth Daily as needed for constipation one time daily if no BM, on day 4 of no BM (PRN refer to instructions) For Constipation 30 mL 2023 Active 2023 83596 23500 6 Daily as needed By Mouth False Nitroglycer in 0.4 mg sublingual tablet [generic] PRN 0.4 mg Sublingual Every 5 minutes as needed Every 5 min PRN x 3 doses PRN chest pain and notify provider For Chest Pain 0.4 mg 2023 Active 2023 11165 84699 5 Every 5 minutes as needed Sublin gual False Aripiprazol e 5 mg tablet [generic] 1/2 Tab By Mouth Once daily For depression 1/2 Tab 2023 Active 2023 43958 98922 1 Once daily By Mouth False Escitalopra m 5 mg tablet [generic] 1 tablet By Mouth Once daily For depression 1 tablet 2023 Active 2023 37083 09636 1 Once daily By Mouth False Probiotic (B. coagulans) 1 billion cell chewable tablet 1 tablet By Mouth Once daily For supplement 1 tablet 2023 Active 2023 27397 92886 7 Once daily By Mouth False Memantine 10 mg tablet [generic] 1 tablet By Mouth Twice daily For alzheimers 1 tablet 2023 Active 2023 99504 63349 0 Twice daily By Mouth False Lidocaine 4 % topical patch [generic] 2 patches Topical - apply in the morning and remove at night For pain 2 patches 2023 Active 2023 09850 65780 0 Twice daily Topica l False Nystatin (bulk) 1 billion unit powder [generic] apply Topically twice daily to affected skin For fungal skin infection apply 2023 Active 2023 35377 51974 6 Twice daily Topica l False Nystatin (bulk) 1 billion unit powder [generic] apply Topical Twice daily For fungal skin breakdown apply 2023 Active 2023 89398 33033 6 Twice daily Topica l False Albuterol sulfate HFA 90 mcg/actuati on aerosol inhaler [generic] 2 puffs Inhalation Every 4 hours As Needed For COPD 2 puffs 2023 Active 2023 89112 42282 2 Every 4 hours Inhala tion False Ascorbic acid (vitamin C) 1,000 mg capsule [generic] 1 tablet By Mouth Once daily For supplement 1 tablet 2023 Active 2023 16735 48311 2 Once daily By Mouth False Epinephrine 0.1 mg/mL injection syringe [generic] 1 dose Intramuscular As Needed for For anaphylaxis 1 dose 2023 Active 2023 38274 56354 1 Intram uscula r False Magnesium 64 mg (magnesium chloride) tablet,opal yed release [generic] 1 tablet By Mouth Twice daily For supplement 1 tablet 2023 Active 2023 65828 53178 6 Twice daily By Mouth False Multivitami n tablet [generic] 1 tablet By Mouth Once daily For supplement 1 tablet 2023 Active 2023 21215 42400 4 Once daily By Mouth False Senna 8.6 mg tablet 1 tablet By Mouth Once daily For constipation 1 tablet 2023 Active 2023 67377 23185 1 Once daily By Mouth False Solifenacin 5 mg tablet [generic] 1 tablet By Mouth Once daily For pulmonary hypertension 1 tablet 2023 Active 2023 38573 98282 0 Once daily By Mouth False Aspirin 81 mg tablet,opal yed release [generic] 1 tablet By Mouth Once daily For DVT prevention 1 tablet 2023 Active 2023 14307 69269 9 Once daily By Mouth False Cholecalcif emily (vitamin D3) 1,250 mcg (50,000 unit) capsule [generic] 1 tablet By Mouth Once daily For supplement 1 tablet 2023 Active 2023 31502 89295 6 Once daily By Mouth False Cyanocobala min (vit B-12) 1,000 mcg tablet [generic] 1 tablet By Mouth Once daily For supplement 1 tablet 2023 Active 2023 92864 87623 5 Once daily By Mouth False Ferrous sulfate 325 mg (65 mg iron) tablet [generic] 1 tablet By Mouth Once daily For supplement 1 tablet 2023 Active 2023 57268 81108 5 Once daily By Mouth False Fludrocorti sone 0.1 mg tablet [generic] 1 tablet by mouth Once daily For adrenal insufficiency 1 tablet 2023 Active 2023 78712 04205 1 Once daily By Mouth False Omeprazole 20 mg capsule,del ayed release [generic] 1 tablet By Mouth Once daily before breakfast For GERD 1 tablet 2023 Active 2023 15118 61293 1 Once daily By Mouth False Trelegy Ellipta 100 mcg-62.5 mcg-25 mcg powder for inhalation 1 inhalation Inhalation Once daily For copd 1 inhalat ion 2023 Active 2023 53999 89587 0 Once daily Inhala tion False Hydrocortis one 20 mg tablet [generic] 1 tablet By Mouth Once daily For COPD 1 tablet 07/07 Inactiv e 2023 62705 19918 1 Once daily By Mouth False Hydrocortis one 10 mg tablet [generic] 1 tablet By Mouth Once daily in the afternoon - BE AWARE HYDROCORTISON E 20MG IN THE AM, 10MG in the afternoon For COPD 1 tablet 2023 Active 2023 57925 72261 1 Once daily By Mouth False Hydrocortis one 20 mg tablet [generic] 07/07 Inactiv e 2023 10772 37278 1 Hydrocortis one 20 mg tablet [generic] 1 tablet By Mouth Once daily For COPD - BE AWARE HYDROCORTISON E 20MG IN THE AM, 10MG in the afternoon 1 tablet 2023 Active 2023 90649 85525 1 Once daily By Mouth False VITAL SIGNS Date Time Diastolic blood pressure Systolic blood pressure Body height Body weight Temperature SpO2 Blood Sugar Pulse Respirations 122 34939 0 68.00 mm[Hg] - Sitting 101.00 mm[Hg] - Sitting 72 NI 234.60 NI 98.20 Tympanic 98.00 % 85.00/ min 18.00/min 122 74889 6 70.00 mm[Hg] - Lying Down 110.00 mm[Hg] - Lying Down 97.80 Tympanic 84.00/ min 18.00/min 89345 123 31465 1 74.00 mm[Hg] - Lying Down 116.00 mm[Hg] - Lying Down 97.40 Tympanic 74.00/ min 18.00/min
--- OUTSIDE RECORDS SUMMARY | 2024-07-30 07:19 | External Medical Summary | Continuity Of Care Document ---
Author Name Unknown Address [address] [address] Organization [facility] [place] () Care Team Providers Care Cap Maker Name Role Phone DO Mallory Amy Primary Care Provider [phone] Allergies Allergy Reaction Start Date End Date [...] 3 0.1 mL 07/08 Inactiv e 2023 18868 48696 0 1 time Intrad ermal False Tubersol 5 tub. unit/0.1 mL intradermal injection solution [Tuberculin PPD] 0.1mL Intradermal 1 time For PPD 2nd Step Give 2nd Step PPD Day 1 and Read results Day 3 (schedule 7 days after 1st READ) 0.1mL 07/08 Inactiv e 2023 64505 12659 0 1 time Intrad ermal False Tubersol 5 tub. unit/0.1 mL intradermal injection solution [Tuberculin PPD] 0.1 mL Intradermal 1 time For PPD Step 1 GIVE on Day 1 and read results Day 3 0.1 mL 07/10 Active 2023 61659 46179 0 1 time Intrad ermal False Tubersol 5 tub. unit/0.1 mL intradermal injection solution [Tuberculin PPD] 0.1mL Intradermal 1 time For PPD 2nd Step Give 2nd Step PPD Day 1 and Read results Day 3 (schedule 7 days after 1st READ) 0.1mL 07/19 Active 2023 34958 17664 0 1 time Intrad ermal False Tylenol 325 mg tablet 2 tabs By Mouth Every 4 hours as needed For Pain DO NOT EXCEED 3000 MG APAP/24 Hours 2 tabs 2023 Active 2023 80788 94255 0 Every 4 hours as needed By Mouth False Tylenol 325 mg tablet 2 tabs By Mouth Every 4 hours as needed For Fever >100 DO NOT EXCEED 3000 MG APAP/24 Hours 2 tabs 2023 Active 2023 05443 35698 0 Every 4 hours as needed By Mouth False Dulcolax (bisacodyl) 10 mg rectal suppository One Suppository per rectum PRN if Milk of Magnisia ineffective. Give on day 5 of no BM 1 sup 2023 Active 2023 10964 31200 1 Daily as needed Rectal False Fleet Enema 19 gram-7 gram/118 mL Administer per rectum PRN one time if dulcolax suppository not effective. Give on day 6 of no BM 1 2023 Active 2023 94787 63451 6 Daily as needed Rectal False Milk of Magnesia 400 mg/5 mL oral suspension [Magnesium hydroxide] PRN 30ml By Mouth Daily as needed for constipation one time daily if no BM, on day 4 of no BM (PRN refer to instructions) For Constipation 30 mL 07/08 Inactiv e 2023 79281 93613 6 Daily as needed By Mouth False Nitroglycer in 0.4 mg sublingual tablet [generic] PRN 0.4 mg Sublingual Every 5 minutes as needed Every 5 min PRN x 3 doses PRN chest pain and notify provider For Chest Pain 0.4 mg 2023 Active 2023 00806 38134 5 Every 5 minutes as needed Sublin gual False Aripiprazol e 5 mg tablet [generic] 1/2 Tab By Mouth Once daily For depression 1/2 Tab 2023 Active 2023 00849 49589 1 Once daily By Mouth False Escitalopra m 5 mg tablet [generic] 1 tablet By Mouth Once daily For depression 1 tablet 2023 Active 2023 26920 23271 1 Once daily By Mouth False Probiotic (B. coagulans) 1 billion cell chewable tablet 1 tablet By Mouth Once daily For supplement 1 tablet 2023 Active 2023 13079 15104 7 Once daily By Mouth False Memantine 10 mg tablet [generic] 1 tablet By Mouth Twice daily For alzheimers 1 tablet 2023 Active 2023 12274 48584 0 Twice daily By Mouth False Lidocaine 4 % topical patch [generic] 2 patches Topical - apply in the morning and remove at night For pain 2 patches 2023 Active 2023 10778 37127 0 Twice daily Topica l False Nystatin (bulk) 1 billion unit powder [generic] apply Topically twice daily to affected skin For fungal skin infection apply 2023 Active 2023 59699 88105 6 Twice daily Topica l False Nystatin (bulk) 1 billion unit powder [generic] apply Topical Twice daily For fungal skin breakdown apply 2023 Active 2023 92632 59288 6 Twice daily Topica l False Albuterol sulfate HFA 90 mcg/actuati on aerosol inhaler [generic] 2 puffs Inhalation Every 4 hours As Needed For COPD 2 puffs 2023 Active 2023 69828 87433 2 Every 4 hours Inhala tion False Ascorbic acid (vitamin C) 1,000 mg capsule [generic] 1 tablet By Mouth Once daily For supplement 1 tablet 2023 Active 2023 05287 70385 2 Once daily By Mouth False Epinephrine 0.1 mg/mL injection syringe [generic] 1 dose Intramuscular As Needed for For anaphylaxis 1 dose 2023 Active 2023 63670 09759 1 Intram uscula r False Magnesium 64 mg (magnesium chloride) tablet,opal yed release [generic] 1 tablet By Mouth Twice daily For supplement 1 tablet 2023 Active 2023 38687 54894 6 Twice daily By Mouth False Multivitami n tablet [generic] 1 tablet By Mouth Once daily For supplement 1 tablet 2023 Active 2023 43943 61167 4 Once daily By Mouth False Senna 8.6 mg tablet 1 tablet By Mouth Once daily For constipation 1 tablet 2023 Active 2023 20273 94262 1 Once daily By Mouth False Solifenacin 5 mg tablet [generic] 1 tablet By Mouth Once daily For pulmonary hypertension 1 tablet 2023 Active 2023 99287 62928 0 Once daily By Mouth False Aspirin 81 mg tablet,opal yed release [generic] 1 tablet By Mouth Once daily For DVT prevention 1 tablet 2023 Active 2023 72897 39783 9 Once daily By Mouth False Cholecalcif emily (vitamin D3) 1,250 mcg (50,000 unit) capsule [generic] 1 tablet By Mouth Once daily For supplement 1 tablet 2023 Active 2023 07275 79046 6 Once daily By Mouth False Cyanocobala min (vit B-12) 1,000 mcg tablet [generic] 1 tablet By Mouth Once daily For supplement 1 tablet 2023 Active 2023 49952 78850 5 Once daily By Mouth False Ferrous sulfate 325 mg (65 mg iron) tablet [generic] 1 tablet By Mouth Once daily For supplement 1 tablet 2023 Active 2023 49864 06292 5 Once daily By Mouth False Fludrocorti sone 0.1 mg tablet [generic] 1 tablet by mouth Once daily For adrenal insufficiency 1 tablet 2023 Active 2023 59016 53020 1 Once daily By Mouth False Omeprazole 20 mg capsule,del ayed release [generic] 1 tablet By Mouth Once daily before breakfast For GERD 1 tablet 2023 Active 2023 76947 25331 1 Once daily By Mouth False Trelegy Ellipta 100 mcg-62.5 mcg-25 mcg powder for inhalation 1 inhalation Inhalation Once daily For copd 1 inhalat ion 2023 Active 2023 21135 56426 0 Once daily Inhala tion False Hydrocortis one 20 mg tablet [generic] 1 tablet By Mouth Once daily For COPD 1 tablet 07/07 Inactiv e 2023 32843 38704 1 Once daily By Mouth False Hydrocortis one 10 mg tablet [generic] 1 tablet By Mouth Once daily in the afternoon - BE AWARE HYDROCORTISON E 20MG IN THE AM, 10MG in the afternoon For COPD 1 tablet 2023 Active 2023 70292 56850 1 Once daily By Mouth False Hydrocortis one 20 mg tablet [generic] 07/07 Inactiv e 2023 49001 85750 1 Hydrocortis one 20 mg tablet [generic] 1 tablet By Mouth Once daily For COPD - BE AWARE HYDROCORTISON E 20MG IN THE AM, 10MG in the afternoon 1 tablet 2023 Active 2023 03495 28053 1 Once daily By Mouth False Miralax 17 gram/dose oral powder 17 gram By Mouth Once daily For Constipation 17 gram 2023 Active 2023 77417 87081 0 Once daily By Mouth False VITAL SIGNS Date Time Diastolic blood pressure Systolic blood pressure Body height Body weight Temperature SpO2 Blood Sugar Pulse Respirations 122 25736 0 68.00 mm[Hg] - Sitting 101.00 mm[Hg] - Sitting 72 NI 234.60 NI 98.20 Tympanic 98.00 % 85.00/ min 18.00/min 122 52021 6 70.00 mm[Hg] - Lying Down 110.00 mm[Hg] - Lying Down 97.80 Tympanic 84.00/ min 18.00/min 123 34028 1 74.00 mm[Hg] - Lying Down 116.00 mm[Hg] - Lying Down 97.40 Tympanic 74.00/ min 18.00/min 123 30315 4 74.00 mm[Hg] - Sitting 116.00 mm[Hg] - Sitting 97.40 Tympanic 74.00/ min 18.00/min 23755 123 06363 4 74.00 mm[Hg] - Sitting 116.00 mm[Hg] - Sitting 97.40 Tympanic 74.00/ min 18.00/min 60484 123 36251 5 82.00 mm[Hg] - Lying Down 153.00 mm[Hg] - Lying Down 98.00 Tympanic 98.00 % 71.00/ min 20.00/min 07378 123 53282 1 44619 124 48576 6 82.00 mm[Hg] - Lying Down 153.00 mm[Hg] - Lying Down 98.00 Tympanic 71.00/ min 20.00/min 51065 124 90648 5 82.00 mm[Hg] - Sitting 153.00 mm[Hg] - Sitting 98.00 Tympanic 71.00/ min 20.00/min
--- OUTSIDE RECORDS SUMMARY | 2024-07-30 07:19 | External Medical Summary | Continuity Of Care Document ---
Author Name Unknown Address [address] [address] Organization [facility] [place] () Care Team Providers Care Naphthol Soaping Machine Operator Name Role Phone DO Mallory Amy Primary Care Provider [phone] Allergies Allergy Reaction Start Date End Date [...] 3 0.1 mL 07/08 Inactiv e 2023 70744 34498 0 1 time Intrad ermal False Tubersol 5 tub. unit/0.1 mL intradermal injection solution [Tuberculin PPD] 0.1mL Intradermal 1 time For PPD 2nd Step Give 2nd Step PPD Day 1 and Read results Day 3 (schedule 7 days after 1st READ) 0.1mL 07/08 Inactiv e 2023 46266 99557 0 1 time Intrad ermal False Tubersol 5 tub. unit/0.1 mL intradermal injection solution [Tuberculin PPD] 0.1 mL Intradermal 1 time For PPD Step 1 GIVE on Day 1 and read results Day 3 0.1 mL 07/10 Active 2023 85574 66114 0 1 time Intrad ermal False Tubersol 5 tub. unit/0.1 mL intradermal injection solution [Tuberculin PPD] 0.1mL Intradermal 1 time For PPD 2nd Step Give 2nd Step PPD Day 1 and Read results Day 3 (schedule 7 days after 1st READ) 0.1mL 07/19 Active 2023 37357 10549 0 1 time Intrad ermal False Tylenol 325 mg tablet 2 tabs By Mouth Every 4 hours as needed For Pain DO NOT EXCEED 3000 MG APAP/24 Hours 2 tabs 2023 Active 2023 48965 64452 0 Every 4 hours as needed By Mouth False Tylenol 325 mg tablet 2 tabs By Mouth Every 4 hours as needed For Fever >100 DO NOT EXCEED 3000 MG APAP/24 Hours 2 tabs 2023 Active 2023 57869 56274 0 Every 4 hours as needed By Mouth False Dulcolax (bisacodyl) 10 mg rectal suppository One Suppository per rectum PRN if Milk of Magnisia ineffective. Give on day 5 of no BM 1 sup 2023 Active 2023 50605 27997 1 Daily as needed Rectal False Fleet Enema 19 gram-7 gram/118 mL Administer per rectum PRN one time if dulcolax suppository not effective. Give on day 6 of no BM 1 2023 Active 2023 42096 40768 6 Daily as needed Rectal False Milk of Magnesia 400 mg/5 mL oral suspension [Magnesium hydroxide] PRN 30ml By Mouth Daily as needed for constipation one time daily if no BM, on day 4 of no BM (PRN refer to instructions) For Constipation 30 mL 07/08 Inactiv e 2023 87243 45489 6 Daily as needed By Mouth False Nitroglycer in 0.4 mg sublingual tablet [generic] PRN 0.4 mg Sublingual Every 5 minutes as needed Every 5 min PRN x 3 doses PRN chest pain and notify provider For Chest Pain 0.4 mg 2023 Active 2023 03354 99951 5 Every 5 minutes as needed Sublin gual False Aripiprazol e 5 mg tablet [generic] 1/2 Tab By Mouth Once daily For depression 1/2 Tab 2023 Active 2023 32049 31393 1 Once daily By Mouth False Escitalopra m 5 mg tablet [generic] 1 tablet By Mouth Once daily For depression 1 tablet 2023 Active 2023 12435 06145 1 Once daily By Mouth False Probiotic (B. coagulans) 1 billion cell chewable tablet 1 tablet By Mouth Once daily For supplement 1 tablet 2023 Active 2023 52134 00628 7 Once daily By Mouth False Memantine 10 mg tablet [generic] 1 tablet By Mouth Twice daily For alzheimers 1 tablet 2023 Active 2023 74099 25017 0 Twice daily By Mouth False Lidocaine 4 % topical patch [generic] 2 patches Topical - apply in the morning and remove at night For pain 2 patches 2023 Active 2023 40100 43041 0 Twice daily Topica l False Nystatin (bulk) 1 billion unit powder [generic] apply Topically twice daily to affected skin For fungal skin infection apply 2023 Active 2023 14189 52965 6 Twice daily Topica l False Nystatin (bulk) 1 billion unit powder [generic] apply Topical Twice daily For fungal skin breakdown apply 2023 Active 2023 72086 60096 6 Twice daily Topica l False Albuterol sulfate HFA 90 mcg/actuati on aerosol inhaler [generic] 2 puffs Inhalation Every 4 hours As Needed For COPD 2 puffs 2023 Active 2023 61715 95809 2 Every 4 hours Inhala tion False Ascorbic acid (vitamin C) 1,000 mg capsule [generic] 1 tablet By Mouth Once daily For supplement 1 tablet 2023 Active 2023 44241 07332 2 Once daily By Mouth False Epinephrine 0.1 mg/mL injection syringe [generic] 1 dose Intramuscular As Needed for For anaphylaxis 1 dose 2023 Active 2023 68050 68144 1 Intram uscula r False Magnesium 64 mg (magnesium chloride) tablet,opal yed release [generic] 1 tablet By Mouth Twice daily For supplement 1 tablet 2023 Active 2023 84252 46849 6 Twice daily By Mouth False Multivitami n tablet [generic] 1 tablet By Mouth Once daily For supplement 1 tablet 2023 Active 2023 83847 03981 4 Once daily By Mouth False Senna 8.6 mg tablet 1 tablet By Mouth Once daily For constipation 1 tablet 2023 Active 2023 68548 24236 1 Once daily By Mouth False Solifenacin 5 mg tablet [generic] 1 tablet By Mouth Once daily For pulmonary hypertension 1 tablet 2023 Active 2023 78741 11567 0 Once daily By Mouth False Aspirin 81 mg tablet,opal yed release [generic] 1 tablet By Mouth Once daily For DVT prevention 1 tablet 2023 Active 2023 67673 33745 9 Once daily By Mouth False Cholecalcif emily (vitamin D3) 1,250 mcg (50,000 unit) capsule [generic] 1 tablet By Mouth Once daily For supplement 1 tablet 2023 Active 2023 63147 03784 6 Once daily By Mouth False Cyanocobala min (vit B-12) 1,000 mcg tablet [generic] 1 tablet By Mouth Once daily For supplement 1 tablet 2023 Active 2023 05071 62467 5 Once daily By Mouth False Ferrous sulfate 325 mg (65 mg iron) tablet [generic] 1 tablet By Mouth Once daily For supplement 1 tablet 2023 Active 2023 58684 49476 5 Once daily By Mouth False Fludrocorti sone 0.1 mg tablet [generic] 1 tablet by mouth Once daily For adrenal insufficiency 1 tablet 2023 Active 2023 44841 11021 1 Once daily By Mouth False Omeprazole 20 mg capsule,del ayed release [generic] 1 tablet By Mouth Once daily before breakfast For GERD 1 tablet 2023 Active 2023 01007 81198 1 Once daily By Mouth False Trelegy Ellipta 100 mcg-62.5 mcg-25 mcg powder for inhalation 1 inhalation Inhalation Once daily For copd 1 inhalat ion 2023 Active 2023 42082 07328 0 Once daily Inhala tion False Hydrocortis one 20 mg tablet [generic] 1 tablet By Mouth Once daily For COPD 1 tablet 07/07 Inactiv e 2023 88234 45103 1 Once daily By Mouth False Hydrocortis one 10 mg tablet [generic] 1 tablet By Mouth Once daily in the afternoon - BE AWARE HYDROCORTISON E 20MG IN THE AM, 10MG in the afternoon For COPD 1 tablet 2023 Active 2023 40414 28046 1 Once daily By Mouth False Hydrocortis one 20 mg tablet [generic] 07/07 Inactiv e 2023 96210 24508 1 Hydrocortis one 20 mg tablet [generic] 1 tablet By Mouth Once daily For COPD - BE AWARE HYDROCORTISON E 20MG IN THE AM, 10MG in the afternoon 1 tablet 2023 Active 2023 54084 62902 1 Once daily By Mouth False Miralax 17 gram/dose oral powder 17 gram By Mouth Once daily For Constipation 17 gram 2023 Active 2023 30597 30018 0 Once daily By Mouth False VITAL SIGNS Date Time Diastolic blood pressure Systolic blood pressure Body height Body weight Temperature SpO2 Blood Sugar Pulse Respirations 122 90938 0 68.00 mm[Hg] - Sitting 101.00 mm[Hg] - Sitting 72 NI 234.60 NI 98.20 Tympanic 98.00 % 85.00/ min 18.00/min 122 52314 6 70.00 mm[Hg] - Lying Down 110.00 mm[Hg] - Lying Down 97.80 Tympanic 84.00/ min 18.00/min 123 92379 1 74.00 mm[Hg] - Lying Down 116.00 mm[Hg] - Lying Down 97.40 Tympanic 74.00/ min 18.00/min
--- OUTSIDE RECORDS SUMMARY | 2024-07-30 07:19 | External Medical Summary | Continuity Of Care Document ---
Author Name Unknown Address [address] [address] Organization [facility] () Care Team Providers Care Competitive Intelligence Analyst Name Role Phone DO Mallory Amy Primary Care Provider [phone] Allergies Allergy Reaction Start Date End Date [...] 3 0.1 mL 07/08 Inactiv e 2023 67911 95822 0 1 time Intrad ermal False Tubersol 5 tub. unit/0.1 mL intradermal injection solution [Tuberculin PPD] 0.1mL Intradermal 1 time For PPD 2nd Step Give 2nd Step PPD Day 1 and Read results Day 3 (schedule 7 days after 1st READ) 0.1mL 07/08 Inactiv e 2023 54280 93553 0 1 time Intrad ermal False Tubersol 5 tub. unit/0.1 mL intradermal injection solution [Tuberculin PPD] 0.1 mL Intradermal 1 time For PPD Step 1 GIVE on Day 1 and read results Day 3 0.1 mL 07/10 Active 2023 65136 70414 0 1 time Intrad ermal False Tubersol 5 tub. unit/0.1 mL intradermal injection solution [Tuberculin PPD] 0.1mL Intradermal 1 time For PPD 2nd Step Give 2nd Step PPD Day 1 and Read results Day 3 (schedule 7 days after 1st READ) 0.1mL 07/19 Active 2023 61612 53195 0 1 time Intrad ermal False Tylenol 325 mg tablet 2 tabs By Mouth Every 4 hours as needed For Pain DO NOT EXCEED 3000 MG APAP/24 Hours 2 tabs 2023 Active 2023 65895 15179 0 Every 4 hours as needed By Mouth False Tylenol 325 mg tablet 2 tabs By Mouth Every 4 hours as needed For Fever >100 DO NOT EXCEED 3000 MG APAP/24 Hours 2 tabs 2023 Active 2023 39405 02225 0 Every 4 hours as needed By Mouth False Dulcolax (bisacodyl) 10 mg rectal suppository One Suppository per rectum PRN if Milk of Magnisia ineffective. Give on day 5 of no BM 1 sup 2023 Active 2023 98173 51290 1 Daily as needed Rectal False Fleet Enema 19 gram-7 gram/118 mL Administer per rectum PRN one time if dulcolax suppository not effective. Give on day 6 of no BM 1 2023 Active 2023 15887 76680 6 Daily as needed Rectal False Milk of Magnesia 400 mg/5 mL oral suspension [Magnesium hydroxide] PRN 30ml By Mouth Daily as needed for constipation one time daily if no BM, on day 4 of no BM (PRN refer to instructions) For Constipation 30 mL 07/08 Inactiv e 2023 24213 59731 6 Daily as needed By Mouth False Nitroglycer in 0.4 mg sublingual tablet [generic] PRN 0.4 mg Sublingual Every 5 minutes as needed Every 5 min PRN x 3 doses PRN chest pain and notify provider For Chest Pain 0.4 mg 2023 Active 2023 01387 54297 5 Every 5 minutes as needed Sublin gual False Aripiprazol e 5 mg tablet [generic] 1/2 Tab By Mouth Once daily For depression 1/2 Tab 2023 Active 2023 84465 44531 1 Once daily By Mouth False Escitalopra m 5 mg tablet [generic] 1 tablet By Mouth Once daily For depression 1 tablet 2023 Active 2023 53573 30375 1 Once daily By Mouth False Probiotic (B. coagulans) 1 billion cell chewable tablet 1 tablet By Mouth Once daily For supplement 1 tablet 2023 Active 2023 78697 03996 7 Once daily By Mouth False Memantine 10 mg tablet [generic] 1 tablet By Mouth Twice daily For alzheimers 1 tablet 2023 Active 2023 03282 37351 0 Twice daily By Mouth False Lidocaine 4 % topical patch [generic] 2 patches Topical - apply in the morning and remove at night For pain 2 patches 2023 Active 2023 17703 01871 0 Twice daily Topica l False Nystatin (bulk) 1 billion unit powder [generic] apply Topically twice daily to affected skin For fungal skin infection apply 2023 Active 2023 79350 08587 6 Twice daily Topica l False Nystatin (bulk) 1 billion unit powder [generic] apply Topical Twice daily For fungal skin breakdown apply 2023 Active 2023 89102 34963 6 Twice daily Topica l False Albuterol sulfate HFA 90 mcg/actuati on aerosol inhaler [generic] 2 puffs Inhalation Every 4 hours As Needed For COPD 2 puffs 2023 Active 2023 68446 75046 2 Every 4 hours Inhala tion False Ascorbic acid (vitamin C) 1,000 mg capsule [generic] 1 tablet By Mouth Once daily For supplement 1 tablet 2023 Active 2023 98431 43582 2 Once daily By Mouth False Epinephrine 0.1 mg/mL injection syringe [generic] 1 dose Intramuscular As Needed for For anaphylaxis 1 dose 2023 Active 2023 41334 00058 1 Intram uscula r False Magnesium 64 mg (magnesium chloride) tablet,opal yed release [generic] 1 tablet By Mouth Twice daily For supplement 1 tablet 2023 Active 2023 65305 02920 6 Twice daily By Mouth False Multivitami n tablet [generic] 1 tablet By Mouth Once daily For supplement 1 tablet 2023 Active 2023 54057 30367 4 Once daily By Mouth False Senna 8.6 mg tablet 1 tablet By Mouth Once daily For constipation 1 tablet 2023 Active 2023 74296 34027 1 Once daily By Mouth False Solifenacin 5 mg tablet [generic] 1 tablet By Mouth Once daily For pulmonary hypertension 1 tablet 2023 Active 2023 98815 93229 0 Once daily By Mouth False Aspirin 81 mg tablet,opal yed release [generic] 1 tablet By Mouth Once daily For DVT prevention 1 tablet 2023 Active 2023 51111 72589 9 Once daily By Mouth False Cholecalcif emily (vitamin D3) 1,250 mcg (50,000 unit) capsule [generic] 1 tablet By Mouth Once daily For supplement 1 tablet 2023 Active 2023 96748 09813 6 Once daily By Mouth False Cyanocobala min (vit B-12) 1,000 mcg tablet [generic] 1 tablet By Mouth Once daily For supplement 1 tablet 2023 Active 2023 33165 04323 5 Once daily By Mouth False Ferrous sulfate 325 mg (65 mg iron) tablet [generic] 1 tablet By Mouth Once daily For supplement 1 tablet 2023 Active 2023 95971 65364 5 Once daily By Mouth False Fludrocorti sone 0.1 mg tablet [generic] 1 tablet by mouth Once daily For adrenal insufficiency 1 tablet 2023 Active 2023 80847 53079 1 Once daily By Mouth False Omeprazole 20 mg capsule,del ayed release [generic] 1 tablet By Mouth Once daily before breakfast For GERD 1 tablet 2023 Active 2023 26640 11739 1 Once daily By Mouth False Trelegy Ellipta 100 mcg-62.5 mcg-25 mcg powder for inhalation 1 inhalation Inhalation Once daily For copd 1 inhalat ion 2023 Active 2023 23499 36254 0 Once daily Inhala tion False Hydrocortis one 20 mg tablet [generic] 1 tablet By Mouth Once daily For COPD 1 tablet 07/07 Inactiv e 2023 56348 07829 1 Once daily By Mouth False Hydrocortis one 10 mg tablet [generic] 1 tablet By Mouth Once daily in the afternoon - BE AWARE HYDROCORTISON E 20MG IN THE AM, 10MG in the afternoon For COPD 1 tablet 2023 Active 2023 90480 51194 1 Once daily By Mouth False Hydrocortis one 20 mg tablet [generic] 07/07 Inactiv e 2023 36320 62939 1 Hydrocortis one 20 mg tablet [generic] 1 tablet By Mouth Once daily For COPD - BE AWARE HYDROCORTISON E 20MG IN THE AM, 10MG in the afternoon 1 tablet 2023 Active 2023 00693 63783 1 Once daily By Mouth False Miralax 17 gram/dose oral powder 17 gram By Mouth Once daily For Constipation 17 gram 2023 Active 2023 11374 15198 0 Once daily By Mouth False VITAL SIGNS Date Time Diastolic blood pressure Systolic blood pressure Body height Body weight Temperature SpO2 Blood Sugar Pulse Respirations 122 86401 0 68.00 mm[Hg] - Sitting 101.00 mm[Hg] - Sitting 72 NI 234.60 NI 98.20 Tympanic 98.00 % 85.00/ min 18.00/min 122 69893 6 70.00 mm[Hg] - Lying Down 110.00 mm[Hg] - Lying Down 97.80 Tympanic 84.00/ min 18.00/min 123 85706 1 74.00 mm[Hg] - Lying Down 116.00 mm[Hg] - Lying Down 97.40 Tympanic 74.00/ min 18.00/min
--- OUTSIDE RECORDS SUMMARY | 2024-07-30 07:19 | External Medical Summary | Continuity Of Care Document ---
Author Name Unknown Address [address] [address] Organization [facility] [place] () Care Team Providers Care Lock Installer Name Role Phone DO Mallory Amy Primary Care Provider [phone] Allergies Allergy Reaction Start Date End Date [...] 3 0.1 mL 07/08 Inactiv e 2023 88335 61875 0 1 time Intrad ermal False Tubersol 5 tub. unit/0.1 mL intradermal injection solution [Tuberculin PPD] 0.1mL Intradermal 1 time For PPD 2nd Step Give 2nd Step PPD Day 1 and Read results Day 3 (schedule 7 days after 1st READ) 0.1mL 07/08 Inactiv e 2023 12250 93935 0 1 time Intrad ermal False Tubersol 5 tub. unit/0.1 mL intradermal injection solution [Tuberculin PPD] 0.1 mL Intradermal 1 time For PPD Step 1 GIVE on Day 1 and read results Day 3 0.1 mL 07/10 Active 2023 56742 93259 0 1 time Intrad ermal False Tubersol 5 tub. unit/0.1 mL intradermal injection solution [Tuberculin PPD] 0.1mL Intradermal 1 time For PPD 2nd Step Give 2nd Step PPD Day 1 and Read results Day 3 (schedule 7 days after 1st READ) 0.1mL 07/19 Active 2023 74235 46589 0 1 time Intrad ermal False Tylenol 325 mg tablet 2 tabs By Mouth Every 4 hours as needed For Pain DO NOT EXCEED 3000 MG APAP/24 Hours 2 tabs 2023 Active 2023 38514 96840 0 Every 4 hours as needed By Mouth False Tylenol 325 mg tablet 2 tabs By Mouth Every 4 hours as needed For Fever >100 DO NOT EXCEED 3000 MG APAP/24 Hours 2 tabs 2023 Active 2023 63881 34042 0 Every 4 hours as needed By Mouth False Dulcolax (bisacodyl) 10 mg rectal suppository One Suppository per rectum PRN if Milk of Magnisia ineffective. Give on day 5 of no BM 1 sup 2023 Active 2023 30394 33655 1 Daily as needed Rectal False Fleet Enema 19 gram-7 gram/118 mL Administer per rectum PRN one time if dulcolax suppository not effective. Give on day 6 of no BM 1 2023 Active 2023 73456 00765 6 Daily as needed Rectal False Milk of Magnesia 400 mg/5 mL oral suspension [Magnesium hydroxide] PRN 30ml By Mouth Daily as needed for constipation one time daily if no BM, on day 4 of no BM (PRN refer to instructions) For Constipation 30 mL 07/08 Inactiv e 2023 53608 91978 6 Daily as needed By Mouth False Nitroglycer in 0.4 mg sublingual tablet [generic] PRN 0.4 mg Sublingual Every 5 minutes as needed Every 5 min PRN x 3 doses PRN chest pain and notify provider For Chest Pain 0.4 mg 2023 Active 2023 28170 78291 5 Every 5 minutes as needed Sublin gual False Aripiprazol e 5 mg tablet [generic] 1/2 Tab By Mouth Once daily For depression 1/2 Tab 2023 Active 2023 56649 70659 1 Once daily By Mouth False Escitalopra m 5 mg tablet [generic] 1 tablet By Mouth Once daily For depression 1 tablet 2023 Active 2023 41774 74852 1 Once daily By Mouth False Probiotic (B. coagulans) 1 billion cell chewable tablet 1 tablet By Mouth Once daily For supplement 1 tablet 2023 Active 2023 41032 40347 7 Once daily By Mouth False Memantine 10 mg tablet [generic] 1 tablet By Mouth Twice daily For alzheimers 1 tablet 2023 Active 2023 17949 18537 0 Twice daily By Mouth False Lidocaine 4 % topical patch [generic] 2 patches Topical - apply in the morning and remove at night For pain 2 patches 2023 Active 2023 26961 08137 0 Twice daily Topica l False Nystatin (bulk) 1 billion unit powder [generic] apply Topically twice daily to affected skin For fungal skin infection apply 2023 Active 2023 15472 77719 6 Twice daily Topica l False Nystatin (bulk) 1 billion unit powder [generic] apply Topical Twice daily For fungal skin breakdown apply 2023 Active 2023 08669 60800 6 Twice daily Topica l False Albuterol sulfate HFA 90 mcg/actuati on aerosol inhaler [generic] 2 puffs Inhalation Every 4 hours As Needed For COPD 2 puffs 2023 Active 2023 97821 56689 2 Every 4 hours Inhala tion False Ascorbic acid (vitamin C) 1,000 mg capsule [generic] 1 tablet By Mouth Once daily For supplement 1 tablet 2023 Active 2023 50266 63629 2 Once daily By Mouth False Epinephrine 0.1 mg/mL injection syringe [generic] 1 dose Intramuscular As Needed for For anaphylaxis 1 dose 2023 Active 2023 50928 61480 1 Intram uscula r False Magnesium 64 mg (magnesium chloride) tablet,opal yed release [generic] 1 tablet By Mouth Twice daily For supplement 1 tablet 2023 Active 2023 68537 09841 6 Twice daily By Mouth False Multivitami n tablet [generic] 1 tablet By Mouth Once daily For supplement 1 tablet 2023 Active 2023 83560 82382 4 Once daily By Mouth False Senna 8.6 mg tablet 1 tablet By Mouth Once daily For constipation 1 tablet 2023 Active 2023 19500 19387 1 Once daily By Mouth False Solifenacin 5 mg tablet [generic] 1 tablet By Mouth Once daily For pulmonary hypertension 1 tablet 2023 Active 2023 25571 20063 0 Once daily By Mouth False Aspirin 81 mg tablet,opal yed release [generic] 1 tablet By Mouth Once daily For DVT prevention 1 tablet 2023 Active 2023 30633 61765 9 Once daily By Mouth False Cholecalcif emily (vitamin D3) 1,250 mcg (50,000 unit) capsule [generic] 1 tablet By Mouth Once daily For supplement 1 tablet 2023 Active 2023 62809 91835 6 Once daily By Mouth False Cyanocobala min (vit B-12) 1,000 mcg tablet [generic] 1 tablet By Mouth Once daily For supplement 1 tablet 2023 Active 2023 41571 93981 5 Once daily By Mouth False Ferrous sulfate 325 mg (65 mg iron) tablet [generic] 1 tablet By Mouth Once daily For supplement 1 tablet 2023 Active 2023 22387 01069 5 Once daily By Mouth False Fludrocorti sone 0.1 mg tablet [generic] 1 tablet by mouth Once daily For adrenal insufficiency 1 tablet 2023 Active 2023 69533 63442 1 Once daily By Mouth False Omeprazole 20 mg capsule,del ayed release [generic] 1 tablet By Mouth Once daily before breakfast For GERD 1 tablet 2023 Active 2023 89530 82168 1 Once daily By Mouth False Trelegy Ellipta 100 mcg-62.5 mcg-25 mcg powder for inhalation 1 inhalation Inhalation Once daily For copd 1 inhalat ion 2023 Active 2023 57954 95687 0 Once daily Inhala tion False Hydrocortis one 20 mg tablet [generic] 1 tablet By Mouth Once daily For COPD 1 tablet 07/07 Inactiv e 2023 74306 89029 1 Once daily By Mouth False Hydrocortis one 10 mg tablet [generic] 1 tablet By Mouth Once daily in the afternoon - BE AWARE HYDROCORTISON E 20MG IN THE AM, 10MG in the afternoon For COPD 1 tablet 2023 Active 2023 34440 77009 1 Once daily By Mouth False Hydrocortis one 20 mg tablet [generic] 07/07 Inactiv e 2023 37590 87373 1 Hydrocortis one 20 mg tablet [generic] 1 tablet By Mouth Once daily For COPD - BE AWARE HYDROCORTISON E 20MG IN THE AM, 10MG in the afternoon 1 tablet 2023 Active 2023 71742 37767 1 Once daily By Mouth False Miralax 17 gram/dose oral powder 17 gram By Mouth Once daily For Constipation 17 gram 2023 Active 2023 54187 58268 0 Once daily By Mouth False VITAL SIGNS Date Time Diastolic blood pressure Systolic blood pressure Body height Body weight Temperature SpO2 Blood Sugar Pulse Respirations 122 03734 0 68.00 mm[Hg] - Sitting 101.00 mm[Hg] - Sitting 72 NI 234.60 NI 98.20 Tympanic 98.00 % 85.00/ min 18.00/min 122 15286 6 70.00 mm[Hg] - Lying Down 110.00 mm[Hg] - Lying Down 97.80 Tympanic 84.00/ min 18.00/min 123 18384 1 74.00 mm[Hg] - Lying Down 116.00 mm[Hg] - Lying Down 97.40 Tympanic 74.00/ min 18.00/min 123 91661 4 74.00 mm[Hg] - Sitting 116.00 mm[Hg] - Sitting 97.40 Tympanic 74.00/ min 18.00/min 13373 123 4 74.00 mm[Hg] - Sitting 116.00 mm[Hg] - Sitting 97.40 Tympanic 74.00/ min 18.00/min 123 56682 5 82.00 mm[Hg] - Lying Down 153.00 mm[Hg] - Lying Down 98.00 Tympanic 98.00 % 71.00/ min 20.00/min 123 18704 1 38049 124 32803 6 82.00 mm[Hg] - Lying Down 153.00 mm[Hg] - Lying Down 98.00 Tympanic 71.00/ min 20.00/min
--- OUTSIDE RECORDS SUMMARY | 2024-07-30 07:19 | External Medical Summary | Continuity Of Care Document ---
Author Name Unknown Address [address] [address] Organization [facility] [place] () Care Team Providers Care Instrument Person Name Role Phone DO Mallory Amy Primary Care Provider [phone] Allergies Allergy Reaction Start Date End Date [...] 3 0.1 mL 07/08 Inactiv e 2023 76185 58024 0 1 time Intrad ermal False Tubersol 5 tub. unit/0.1 mL intradermal injection solution [Tuberculin PPD] 0.1mL Intradermal 1 time For PPD 2nd Step Give 2nd Step PPD Day 1 and Read results Day 3 (schedule 7 days after 1st READ) 0.1mL 07/08 Inactiv e 2023 94471 11579 0 1 time Intrad ermal False Tubersol 5 tub. unit/0.1 mL intradermal injection solution [Tuberculin PPD] 0.1 mL Intradermal 1 time For PPD Step 1 GIVE on Day 1 and read results Day 3 0.1 mL 07/10 Active 2023 04803 19006 0 1 time Intrad ermal False Tubersol 5 tub. unit/0.1 mL intradermal injection solution [Tuberculin PPD] 0.1mL Intradermal 1 time For PPD 2nd Step Give 2nd Step PPD Day 1 and Read results Day 3 (schedule 7 days after 1st READ) 0.1mL 07/19 Active 2023 62671 17216 0 1 time Intrad ermal False Tylenol 325 mg tablet 2 tabs By Mouth Every 4 hours as needed For Pain DO NOT EXCEED 3000 MG APAP/24 Hours 2 tabs 2023 Active 2023 90680 39663 0 Every 4 hours as needed By Mouth False Tylenol 325 mg tablet 2 tabs By Mouth Every 4 hours as needed For Fever >100 DO NOT EXCEED 3000 MG APAP/24 Hours 2 tabs 2023 Active 2023 84562 04635 0 Every 4 hours as needed By Mouth False Dulcolax (bisacodyl) 10 mg rectal suppository One Suppository per rectum PRN if Milk of Magnisia ineffective. Give on day 5 of no BM 1 sup 2023 Active 2023 78005 86356 1 Daily as needed Rectal False Fleet Enema 19 gram-7 gram/118 mL Administer per rectum PRN one time if dulcolax suppository not effective. Give on day 6 of no BM 1 2023 Active 2023 53660 34533 6 Daily as needed Rectal False Milk of Magnesia 400 mg/5 mL oral suspension [Magnesium hydroxide] PRN 30ml By Mouth Daily as needed for constipation one time daily if no BM, on day 4 of no BM (PRN refer to instructions) For Constipation 30 mL 2023 Active 2023 68932 00815 6 Daily as needed By Mouth False Nitroglycer in 0.4 mg sublingual tablet [generic] PRN 0.4 mg Sublingual Every 5 minutes as needed Every 5 min PRN x 3 doses PRN chest pain and notify provider For Chest Pain 0.4 mg 2023 Active 2023 15758 31814 5 Every 5 minutes as needed Sublin gual False Aripiprazol e 5 mg tablet [generic] 1/2 Tab By Mouth Once daily For depression 1/2 Tab 2023 Active 2023 21447 71152 1 Once daily By Mouth False Escitalopra m 5 mg tablet [generic] 1 tablet By Mouth Once daily For depression 1 tablet 2023 Active 2023 18534 80513 1 Once daily By Mouth False Probiotic (B. coagulans) 1 billion cell chewable tablet 1 tablet By Mouth Once daily For supplement 1 tablet 2023 Active 2023 85063 19486 7 Once daily By Mouth False Memantine 10 mg tablet [generic] 1 tablet By Mouth Twice daily For alzheimers 1 tablet 2023 Active 2023 36935 50555 0 Twice daily By Mouth False Lidocaine 4 % topical patch [generic] 2 patches Topical - apply in the morning and remove at night For pain 2 patches 2023 Active 2023 37195 72145 0 Twice daily Topica l False Nystatin (bulk) 1 billion unit powder [generic] apply Topically twice daily to affected skin For fungal skin infection apply 2023 Active 2023 86650 60042 6 Twice daily Topica l False Nystatin (bulk) 1 billion unit powder [generic] apply Topical Twice daily For fungal skin breakdown apply 2023 Active 2023 86027 29299 6 Twice daily Topica l False Albuterol sulfate HFA 90 mcg/actuati on aerosol inhaler [generic] 2 puffs Inhalation Every 4 hours As Needed For COPD 2 puffs 2023 Active 2023 73746 46973 2 Every 4 hours Inhala tion False Ascorbic acid (vitamin C) 1,000 mg capsule [generic] 1 tablet By Mouth Once daily For supplement 1 tablet 2023 Active 2023 18383 15701 2 Once daily By Mouth False Epinephrine 0.1 mg/mL injection syringe [generic] 1 dose Intramuscular As Needed for For anaphylaxis 1 dose 2023 Active 2023 46883 58244 1 Intram uscula r False Magnesium 64 mg (magnesium chloride) tablet,opal yed release [generic] 1 tablet By Mouth Twice daily For supplement 1 tablet 2023 Active 2023 80369 01706 6 Twice daily By Mouth False Multivitami n tablet [generic] 1 tablet By Mouth Once daily For supplement 1 tablet 2023 Active 2023 79635 15225 4 Once daily By Mouth False Senna 8.6 mg tablet 1 tablet By Mouth Once daily For constipation 1 tablet 2023 Active 2023 74941 52281 1 Once daily By Mouth False Solifenacin 5 mg tablet [generic] 1 tablet By Mouth Once daily For pulmonary hypertension 1 tablet 2023 Active 2023 54226 89644 0 Once daily By Mouth False Aspirin 81 mg tablet,opal yed release [generic] 1 tablet By Mouth Once daily For DVT prevention 1 tablet 2023 Active 2023 89390 74790 9 Once daily By Mouth False Cholecalcif emily (vitamin D3) 1,250 mcg (50,000 unit) capsule [generic] 1 tablet By Mouth Once daily For supplement 1 tablet 2023 Active 2023 05547 10546 6 Once daily By Mouth False Cyanocobala min (vit B-12) 1,000 mcg tablet [generic] 1 tablet By Mouth Once daily For supplement 1 tablet 2023 Active 2023 27677 98175 5 Once daily By Mouth False Ferrous sulfate 325 mg (65 mg iron) tablet [generic] 1 tablet By Mouth Once daily For supplement 1 tablet 2023 Active 2023 71824 89484 5 Once daily By Mouth False Fludrocorti sone 0.1 mg tablet [generic] 1 tablet by mouth Once daily For adrenal insufficiency 1 tablet 2023 Active 2023 34697 06634 1 Once daily By Mouth False Omeprazole 20 mg capsule,del ayed release [generic] 1 tablet By Mouth Once daily before breakfast For GERD 1 tablet 2023 Active 2023 53173 68162 1 Once daily By Mouth False Trelegy Ellipta 100 mcg-62.5 mcg-25 mcg powder for inhalation 1 inhalation Inhalation Once daily For copd 1 inhalat ion 2023 Active 2023 18922 16783 0 Once daily Inhala tion False Hydrocortis one 20 mg tablet [generic] 1 tablet By Mouth Once daily For COPD 1 tablet 07/07 Inactiv e 2023 28132 51668 1 Once daily By Mouth False Hydrocortis one 10 mg tablet [generic] 1 tablet By Mouth Once daily in the afternoon - BE AWARE HYDROCORTISON E 20MG IN THE AM, 10MG in the afternoon For COPD 1 tablet 2023 Active 2023 20539 86047 1 Once daily By Mouth False Hydrocortis one 20 mg tablet [generic] 07/07 Inactiv e 2023 39396 24132 1 Hydrocortis one 20 mg tablet [generic] 1 tablet By Mouth Once daily For COPD - BE AWARE HYDROCORTISON E 20MG IN THE AM, 10MG in the afternoon 1 tablet 2023 Active 2023 66321 19181 1 Once daily By Mouth False VITAL SIGNS Date Time Diastolic blood pressure Systolic blood pressure Body height Body weight Temperature SpO2 Blood Sugar Pulse Respirations 122 29701 0 68.00 mm[Hg] - Sitting 101.00 mm[Hg] - Sitting 72 NI 234.60 NI 98.20 Tympanic 98.00 % 85.00/ min 18.00/min 122 21618 6 70.00 mm[Hg] - Lying Down 110.00 mm[Hg] - Lying Down 97.80 Tympanic 84.00/ min 18.00/min
--- OUTSIDE RECORDS SUMMARY | 2024-07-30 07:19 | External Medical Summary | Continuity Of Care Document ---
Author Name Unknown Address [address] [address] Organization [facility] () Care Team Providers Care Irrigation System Operator Name Role Phone DO Mallory Amy Primary Care Provider [phone] Allergies Allergy Reaction Start Date End Date Status IODINATED CONTRAST MEDIA Active CLINDAMYCIN Active Medications Medication Instructions Dosage Start Date End Date Status Order Date Drug Code Frequency Route of Admin Diagnosis Code Substitutions Allowed Tubersol 5 tub. unit/0.1 mL intradermal injection solution [Tuberculin PPD] 0.1 mL Intradermal 1 time For PPD Step 1 GIVE on Day 1 and read results Day 3 0.1 mL 07/10 Active 2023 37887 93698 0 1 time Intrad ermal False Tubersol 5 tub. unit/0.1 mL intradermal injection solution [Tuberculin PPD] 0.1mL Intradermal 1 time For PPD 2nd Step Give 2nd Step PPD Day 1 and Read results Day 3 (schedule 7 days after 1st READ) 0.1mL 07/10 Active 2023 17713 69601 0 1 time Intrad ermal False Tylenol 325 mg tablet 2 tabs By Mouth Every 4 hours as needed For Pain DO NOT EXCEED 3000 MG APAP/24 Hours 2 tabs 2023 Active 2023 17873 99586 0 Every 4 hours as needed By Mouth False Tylenol 325 mg tablet 2 tabs By Mouth Every 4 hours as needed For Fever >100 DO NOT EXCEED 3000 MG APAP/24 Hours 2 tabs 2023 Active 2023 73740 01876 0 Every 4 hours as needed By Mouth False Dulcolax (bisacodyl) 10 mg rectal suppository One Suppository per rectum PRN if Milk of Magnisia ineffective. Give on day 5 of no BM 1 sup 2023 Active 2023 76237 79863 1 Daily as needed Rectal False Fleet Enema 19 gram-7 gram/118 mL Administer per rectum PRN one time if dulcolax suppository not effective. Give on day 6 of no BM 1 2023 Active 2023 30003 02724 6 Daily as needed Rectal False Milk of Magnesia 400 mg/5 mL oral suspension [Magnesium hydroxide] PRN 30ml By Mouth Daily as needed for constipation one time daily if no BM, on day 4 of no BM (PRN refer to instructions) For Constipation 30 mL 2023 Active 2023 78082 48837 6 Daily as needed By Mouth False Nitroglycer in 0.4 mg sublingual tablet [generic] PRN 0.4 mg Sublingual Every 5 minutes as needed Every 5 min PRN x 3 doses PRN chest pain and notify provider For Chest Pain 0.4 mg 2023 Active 2023 82270 98422 5 Every 5 minutes as needed Sublin gual False Aripiprazol e 5 mg tablet [generic] 1/2 Tab By Mouth Once daily For depression 1/2 Tab 2023 Active 2023 31614 94340 1 Once daily By Mouth False Escitalopra m 5 mg tablet [generic] 1 tablet By Mouth Once daily For depression 1 tablet 2023 Active 2023 40486 80991 1 Once daily By Mouth False Probiotic (B. coagulans) 1 billion cell chewable tablet 1 tablet By Mouth Once daily For supplement 1 tablet 2023 Active 2023 13880 18769 7 Once daily By Mouth False Memantine 10 mg tablet [generic] 1 tablet By Mouth Twice daily For alzheimers 1 tablet 2023 Active 2023 01583 81198 0 Twice daily By Mouth False Lidocaine 4 % topical patch [generic] 2 patches Topical - apply in the morning and remove at night For pain 2 patches 2023 Active 2023 42528 01114 0 Twice daily Topica l False Nystatin (bulk) 1 billion unit powder [generic] apply Topically twice daily to affected skin For fungal skin infection apply 2023 Active 2023 09508 83036 6 Twice daily Topica l False Nystatin (bulk) 1 billion unit powder [generic] apply Topical Twice daily For fungal skin breakdown apply 2023 Active 2023 10578 80393 6 Twice daily Topica l False Albuterol sulfate HFA 90 mcg/actuati on aerosol inhaler [generic] 2 puffs Inhalation Every 4 hours As Needed For COPD 2 puffs 2023 Active 2023 13680 38936 2 Every 4 hours Inhala tion False Ascorbic acid (vitamin C) 1,000 mg capsule [generic] 1 tablet By Mouth Once daily For supplement 1 tablet 2023 Active 2023 78173 52658 2 Once daily By Mouth False Epinephrine 0.1 mg/mL injection syringe [generic] 1 dose Intramuscular As Needed for For anaphylaxis 1 dose 2023 Active 2023 32203 40826 1 Intram uscula r False Magnesium 64 mg (magnesium chloride) tablet,opal yed release [generic] 1 tablet By Mouth Twice daily For supplement 1 tablet 2023 Active 2023 46105 90954 6 Twice daily By Mouth False Multivitami n tablet [generic] 1 tablet By Mouth Once daily For supplement 1 tablet 2023 Active 2023 23666 42896 4 Once daily By Mouth False Senna 8.6 mg tablet 1 tablet By Mouth Once daily For constipation 1 tablet 2023 Active 2023 02272 88459 1 Once daily By Mouth False Solifenacin 5 mg tablet [generic] 1 tablet By Mouth Once daily For pulmonary hypertension 1 tablet 2023 Active 2023 75427 74596 0 Once daily By Mouth False Aspirin 81 mg tablet,opal yed release [generic] 1 tablet By Mouth Once daily For DVT prevention 1 tablet 2023 Active 2023 12742 59373 9 Once daily By Mouth False Cholecalcif emily (vitamin D3) 1,250 mcg (50,000 unit) capsule [generic] 1 tablet By Mouth Once daily For supplement 1 tablet 2023 Active 2023 52500 71283 6 Once daily By Mouth False Cyanocobala min (vit B-12) 1,000 mcg tablet [generic] 1 tablet By Mouth Once daily For supplement 1 tablet 2023 Active 2023 36529 28007 5 Once daily By Mouth False Ferrous sulfate 325 mg (65 mg iron) tablet [generic] 1 tablet By Mouth Once daily For supplement 1 tablet 2023 Active 2023 48019 75595 5 Once daily By Mouth False Fludrocorti sone 0.1 mg tablet [generic] 1 tablet by mouth Once daily For adrenal insufficiency 1 tablet 2023 Active 2023 22103 98786 1 Once daily By Mouth False Omeprazole 20 mg capsule,del ayed release [generic] 1 tablet By Mouth Once daily before breakfast For GERD 1 tablet 2023 Active 2023 21980 08945 1 Once daily By Mouth False Trelegy Ellipta 100 mcg-62.5 mcg-25 mcg powder for inhalation 1 inhalation Inhalation Once daily For copd 1 inhalat ion 2023 Active 2023 50881 99232 0 Once daily Inhala tion False Hydrocortis one 20 mg tablet [generic] 1 tablet By Mouth Once daily For COPD 1 tablet 07/07 Inactiv e 2023 05098 03605 1 Once daily By Mouth False Hydrocortis one 10 mg tablet [generic] 1 tablet By Mouth Once daily in the afternoon - BE AWARE HYDROCORTISON E 20MG IN THE AM, 10MG in the afternoon For COPD 1 tablet 2023 Active 2023 29185 43938 1 Once daily By Mouth False Hydrocortis one 20 mg tablet [generic] 07/07 Inactiv e 2023 54449 66208 1 Hydrocortis one 20 mg tablet [generic] 1 tablet By Mouth Once daily For COPD - BE AWARE HYDROCORTISON E 20MG IN THE AM, 10MG in the afternoon 1 tablet 2023 00/00 /0000 Active 202315 32618 1 Once daily By Mouth False VITAL SIGNS Date Time Diastolic blood pressure Systolic blood pressure Body height Body weight Temperature SpO2 Blood Sugar Pulse Respirations 122 13466 0 68.00 mm[Hg] - Sitting 101.00 mm[Hg] - Sitting 72 NI 234.60 NI 98.20 Tympanic 98.00 % 85.00/ min 18.00/min 122 71024 6 70.00 mm[Hg] - Lying Down 110.00 mm[Hg] - Lying Down 97.80 Tympanic 84.00/ min 18.00/min
--- OUTSIDE RECORDS SUMMARY | 2024-07-30 07:19 | External Medical Summary | Continuity Of Care Document ---
Author Name Unknown Address [address] [address] Organization [facility] () Care Team Providers Care Alteration Inspector Name Role Phone DO Mallory Amy Primary Care Provider [phone] Allergies Allergy Reaction Start Date End Date [...] 3 0.1 mL 07/08 Inactiv e 2023 88661 63839 0 1 time Intrad ermal False Tubersol 5 tub. unit/0.1 mL intradermal injection solution [Tuberculin PPD] 0.1mL Intradermal 1 time For PPD 2nd Step Give 2nd Step PPD Day 1 and Read results Day 3 (schedule 7 days after 1st READ) 0.1mL 07/08 Inactiv e 2023 64848 01256 0 1 time Intrad ermal False Tubersol 5 tub. unit/0.1 mL intradermal injection solution [Tuberculin PPD] 0.1 mL Intradermal 1 time For PPD Step 1 GIVE on Day 1 and read results Day 3 0.1 mL 07/10 Active 2023 32740 83063 0 1 time Intrad ermal False Tubersol 5 tub. unit/0.1 mL intradermal injection solution [Tuberculin PPD] 0.1mL Intradermal 1 time For PPD 2nd Step Give 2nd Step PPD Day 1 and Read results Day 3 (schedule 7 days after 1st READ) 0.1mL 07/19 Active 2023 52567 23884 0 1 time Intrad ermal False Tylenol 325 mg tablet 2 tabs By Mouth Every 4 hours as needed For Pain DO NOT EXCEED 3000 MG APAP/24 Hours 2 tabs 2023 Active 2023 04921 36541 0 Every 4 hours as needed By Mouth False Tylenol 325 mg tablet 2 tabs By Mouth Every 4 hours as needed For Fever >100 DO NOT EXCEED 3000 MG APAP/24 Hours 2 tabs 2023 Active 2023 12370 80157 0 Every 4 hours as needed By Mouth False Dulcolax (bisacodyl) 10 mg rectal suppository One Suppository per rectum PRN if Milk of Magnisia ineffective. Give on day 5 of no BM 1 sup 2023 Active 2023 49265 62740 1 Daily as needed Rectal False Fleet Enema 19 gram-7 gram/118 mL Administer per rectum PRN one time if dulcolax suppository not effective. Give on day 6 of no BM 1 2023 Active 2023 75199 11361 6 Daily as needed Rectal False Milk of Magnesia 400 mg/5 mL oral suspension [Magnesium hydroxide] PRN 30ml By Mouth Daily as needed for constipation one time daily if no BM, on day 4 of no BM (PRN refer to instructions) For Constipation 30 mL 07/08 Inactiv e 2023 51258 82795 6 Daily as needed By Mouth False Nitroglycer in 0.4 mg sublingual tablet [generic] PRN 0.4 mg Sublingual Every 5 minutes as needed Every 5 min PRN x 3 doses PRN chest pain and notify provider For Chest Pain 0.4 mg 2023 Active 2023 82487 90676 5 Every 5 minutes as needed Sublin gual False Aripiprazol e 5 mg tablet [generic] 1/2 Tab By Mouth Once daily For depression 1/2 Tab 2023 Active 2023 96154 00772 1 Once daily By Mouth False Escitalopra m 5 mg tablet [generic] 1 tablet By Mouth Once daily For depression 1 tablet 2023 Active 2023 14526 58863 1 Once daily By Mouth False Probiotic (B. coagulans) 1 billion cell chewable tablet 1 tablet By Mouth Once daily For supplement 1 tablet 2023 Active 2023 39558 93577 7 Once daily By Mouth False Memantine 10 mg tablet [generic] 1 tablet By Mouth Twice daily For alzheimers 1 tablet 2023 Active 2023 75223 77824 0 Twice daily By Mouth False Lidocaine 4 % topical patch [generic] 2 patches Topical - apply in the morning and remove at night For pain 2 patches 2023 Active 2023 87698 29575 0 Twice daily Topica l False Nystatin (bulk) 1 billion unit powder [generic] apply Topically twice daily to affected skin For fungal skin infection apply 2023 Active 2023 39607 18367 6 Twice daily Topica l False Nystatin (bulk) 1 billion unit powder [generic] apply Topical Twice daily For fungal skin breakdown apply 2023 Active 2023 98477 11040 6 Twice daily Topica l False Albuterol sulfate HFA 90 mcg/actuati on aerosol inhaler [generic] 2 puffs Inhalation Every 4 hours As Needed For COPD 2 puffs 2023 Active 2023 70500 60324 2 Every 4 hours Inhala tion False Ascorbic acid (vitamin C) 1,000 mg capsule [generic] 1 tablet By Mouth Once daily For supplement 1 tablet 2023 Active 2023 77521 13778 2 Once daily By Mouth False Epinephrine 0.1 mg/mL injection syringe [generic] 1 dose Intramuscular As Needed for For anaphylaxis 1 dose 2023 Active 2023 62803 65851 1 Intram uscula r False Magnesium 64 mg (magnesium chloride) tablet,opal yed release [generic] 1 tablet By Mouth Twice daily For supplement 1 tablet 2023 Active 2023 10515 14525 6 Twice daily By Mouth False Multivitami n tablet [generic] 1 tablet By Mouth Once daily For supplement 1 tablet 2023 Active 2023 87884 78286 4 Once daily By Mouth False Senna 8.6 mg tablet 1 tablet By Mouth Once daily For constipation 1 tablet 2023 Active 2023 54982 80119 1 Once daily By Mouth False Solifenacin 5 mg tablet [generic] 1 tablet By Mouth Once daily For pulmonary hypertension 1 tablet 2023 Active 2023 02510 95235 0 Once daily By Mouth False Aspirin 81 mg tablet,opal yed release [generic] 1 tablet By Mouth Once daily For DVT prevention 1 tablet 2023 Active 2023 45666 96089 9 Once daily By Mouth False Cholecalcif emily (vitamin D3) 1,250 mcg (50,000 unit) capsule [generic] 1 tablet By Mouth Once daily For supplement 1 tablet 2023 Active 2023 26875 71845 6 Once daily By Mouth False Cyanocobala min (vit B-12) 1,000 mcg tablet [generic] 1 tablet By Mouth Once daily For supplement 1 tablet 2023 Active 2023 40551 87007 5 Once daily By Mouth False Ferrous sulfate 325 mg (65 mg iron) tablet [generic] 1 tablet By Mouth Once daily For supplement 1 tablet 2023 Active 2023 88433 90366 5 Once daily By Mouth False Fludrocorti sone 0.1 mg tablet [generic] 1 tablet by mouth Once daily For adrenal insufficiency 1 tablet 2023 Active 2023 78045 39864 1 Once daily By Mouth False Omeprazole 20 mg capsule,del ayed release [generic] 1 tablet By Mouth Once daily before breakfast For GERD 1 tablet 2023 Active 2023 98109 27374 1 Once daily By Mouth False Trelegy Ellipta 100 mcg-62.5 mcg-25 mcg powder for inhalation 1 inhalation Inhalation Once daily For copd 1 inhalat ion 2023 Active 2023 35157 02800 0 Once daily Inhala tion False Hydrocortis one 20 mg tablet [generic] 1 tablet By Mouth Once daily For COPD 1 tablet 07/07 Inactiv e 2023 43190 56814 1 Once daily By Mouth False Hydrocortis one 10 mg tablet [generic] 1 tablet By Mouth Once daily in the afternoon - BE AWARE HYDROCORTISON E 20MG IN THE AM, 10MG in the afternoon For COPD 1 tablet 2023 Active 2023 61180 84927 1 Once daily By Mouth False Hydrocortis one 20 mg tablet [generic] 07/07 Inactiv e 2023 47896 51778 1 Hydrocortis one 20 mg tablet [generic] 1 tablet By Mouth Once daily For COPD - BE AWARE HYDROCORTISON E 20MG IN THE AM, 10MG in the afternoon 1 tablet 2023 Active 2023 56051 58471 1 Once daily By Mouth False Miralax 17 gram/dose oral powder 17 gram By Mouth Once daily For Constipation 17 gram 2023 Active 2023 06274 96950 0 Once daily By Mouth False VITAL SIGNS Date Time Diastolic blood pressure Systolic blood pressure Body height Body weight Temperature SpO2 Blood Sugar Pulse Respirations 122 16348 0 68.00 mm[Hg] - Sitting 101.00 mm[Hg] - Sitting 72 NI 234.60 NI 98.20 Tympanic 98.00 % 85.00/ min 18.00/min 122 37361 6 70.00 mm[Hg] - Lying Down 110.00 mm[Hg] - Lying Down 97.80 Tympanic 84.00/ min 18.00/min 123 86373 1 74.00 mm[Hg] - Lying Down 116.00 mm[Hg] - Lying Down 97.40 Tympanic 74.00/ min 18.00/min
--- OUTSIDE RECORDS SUMMARY | 2024-07-30 07:19 | External Medical Summary | Continuity Of Care Document ---
Author Name Unknown Address [address] [address] Organization [facility] () Care Team Providers Care Supervisor Cigar Processing Name Role Phone DO Mallory Amy Primary Care Provider [phone] Allergies Allergy Reaction Start Date End Date [...] 3 0.1 mL 07/08 Inactiv e 2023 68983 34898 0 1 time Intrad ermal False Tubersol 5 tub. unit/0.1 mL intradermal injection solution [Tuberculin PPD] 0.1mL Intradermal 1 time For PPD 2nd Step Give 2nd Step PPD Day 1 and Read results Day 3 (schedule 7 days after 1st READ) 0.1mL 07/08 Inactiv e 2023 27733 44011 0 1 time Intrad ermal False Tubersol 5 tub. unit/0.1 mL intradermal injection solution [Tuberculin PPD] 0.1 mL Intradermal 1 time For PPD Step 1 GIVE on Day 1 and read results Day 3 0.1 mL 07/10 Active 2023 56541 36039 0 1 time Intrad ermal False Tubersol 5 tub. unit/0.1 mL intradermal injection solution [Tuberculin PPD] 0.1mL Intradermal 1 time For PPD 2nd Step Give 2nd Step PPD Day 1 and Read results Day 3 (schedule 7 days after 1st READ) 0.1mL 07/19 Active 2023 84690 64799 0 1 time Intrad ermal False Tylenol 325 mg tablet 2 tabs By Mouth Every 4 hours as needed For Pain DO NOT EXCEED 3000 MG APAP/24 Hours 2 tabs 2023 Active 2023 85087 86565 0 Every 4 hours as needed By Mouth False Tylenol 325 mg tablet 2 tabs By Mouth Every 4 hours as needed For Fever >100 DO NOT EXCEED 3000 MG APAP/24 Hours 2 tabs 2023 Active 2023 42835 03262 0 Every 4 hours as needed By Mouth False Dulcolax (bisacodyl) 10 mg rectal suppository One Suppository per rectum PRN if Milk of Magnisia ineffective. Give on day 5 of no BM 1 sup 2023 Active 2023 49044 62442 1 Daily as needed Rectal False Fleet Enema 19 gram-7 gram/118 mL Administer per rectum PRN one time if dulcolax suppository not effective. Give on day 6 of no BM 1 2023 Active 2023 84604 86536 6 Daily as needed Rectal False Milk of Magnesia 400 mg/5 mL oral suspension [Magnesium hydroxide] PRN 30ml By Mouth Daily as needed for constipation one time daily if no BM, on day 4 of no BM (PRN refer to instructions) For Constipation 30 mL 2023 Active 2023 22418 80300 6 Daily as needed By Mouth False Nitroglycer in 0.4 mg sublingual tablet [generic] PRN 0.4 mg Sublingual Every 5 minutes as needed Every 5 min PRN x 3 doses PRN chest pain and notify provider For Chest Pain 0.4 mg 2023 Active 2023 49617 33648 5 Every 5 minutes as needed Sublin gual False Aripiprazol e 5 mg tablet [generic] 1/2 Tab By Mouth Once daily For depression 1/2 Tab 2023 Active 2023 08813 52841 1 Once daily By Mouth False Escitalopra m 5 mg tablet [generic] 1 tablet By Mouth Once daily For depression 1 tablet 2023 Active 2023 73600 56780 1 Once daily By Mouth False Probiotic (B. coagulans) 1 billion cell chewable tablet 1 tablet By Mouth Once daily For supplement 1 tablet 2023 Active 2023 09457 49612 7 Once daily By Mouth False Memantine 10 mg tablet [generic] 1 tablet By Mouth Twice daily For alzheimers 1 tablet 2023 Active 2023 79111 81321 0 Twice daily By Mouth False Lidocaine 4 % topical patch [generic] 2 patches Topical - apply in the morning and remove at night For pain 2 patches 2023 Active 2023 86197 53611 0 Twice daily Topica l False Nystatin (bulk) 1 billion unit powder [generic] apply Topically twice daily to affected skin For fungal skin infection apply 2023 Active 2023 37314 97193 6 Twice daily Topica l False Nystatin (bulk) 1 billion unit powder [generic] apply Topical Twice daily For fungal skin breakdown apply 2023 Active 2023 48961 21485 6 Twice daily Topica l False Albuterol sulfate HFA 90 mcg/actuati on aerosol inhaler [generic] 2 puffs Inhalation Every 4 hours As Needed For COPD 2 puffs 2023 Active 2023 16973 78673 2 Every 4 hours Inhala tion False Ascorbic acid (vitamin C) 1,000 mg capsule [generic] 1 tablet By Mouth Once daily For supplement 1 tablet 2023 Active 2023 98689 62880 2 Once daily By Mouth False Epinephrine 0.1 mg/mL injection syringe [generic] 1 dose Intramuscular As Needed for For anaphylaxis 1 dose 2023 Active 2023 59795 39256 1 Intram uscula r False Magnesium 64 mg (magnesium chloride) tablet,opal yed release [generic] 1 tablet By Mouth Twice daily For supplement 1 tablet 2023 Active 2023 14413 79277 6 Twice daily By Mouth False Multivitami n tablet [generic] 1 tablet By Mouth Once daily For supplement 1 tablet 2023 Active 2023 80920 23977 4 Once daily By Mouth False Senna 8.6 mg tablet 1 tablet By Mouth Once daily For constipation 1 tablet 2023 Active 2023 39605 58273 1 Once daily By Mouth False Solifenacin 5 mg tablet [generic] 1 tablet By Mouth Once daily For pulmonary hypertension 1 tablet 2023 Active 2023 71663 90610 0 Once daily By Mouth False Aspirin 81 mg tablet,opal yed release [generic] 1 tablet By Mouth Once daily For DVT prevention 1 tablet 2023 Active 2023 04572 71498 9 Once daily By Mouth False Cholecalcif emily (vitamin D3) 1,250 mcg (50,000 unit) capsule [generic] 1 tablet By Mouth Once daily For supplement 1 tablet 2023 Active 2023 00411 38652 6 Once daily By Mouth False Cyanocobala min (vit B-12) 1,000 mcg tablet [generic] 1 tablet By Mouth Once daily For supplement 1 tablet 2023 Active 2023 49920 92482 5 Once daily By Mouth False Ferrous sulfate 325 mg (65 mg iron) tablet [generic] 1 tablet By Mouth Once daily For supplement 1 tablet 2023 Active 2023 70537 57364 5 Once daily By Mouth False Fludrocorti sone 0.1 mg tablet [generic] 1 tablet by mouth Once daily For adrenal insufficiency 1 tablet 2023 Active 2023 22089 27695 1 Once daily By Mouth False Omeprazole 20 mg capsule,del ayed release [generic] 1 tablet By Mouth Once daily before breakfast For GERD 1 tablet 2023 Active 2023 90704 18311 1 Once daily By Mouth False Trelegy Ellipta 100 mcg-62.5 mcg-25 mcg powder for inhalation 1 inhalation Inhalation Once daily For copd 1 inhalat ion 2023 Active 2023 03852 94882 0 Once daily Inhala tion False Hydrocortis one 20 mg tablet [generic] 1 tablet By Mouth Once daily For COPD 1 tablet 07/07 Inactiv e 2023 20021 82207 1 Once daily By Mouth False Hydrocortis one 10 mg tablet [generic] 1 tablet By Mouth Once daily in the afternoon - BE AWARE HYDROCORTISON E 20MG IN THE AM, 10MG in the afternoon For COPD 1 tablet 2023 Active 2023 38941 63479 1 Once daily By Mouth False Hydrocortis one 20 mg tablet [generic] 07/07 Inactiv e 2023 56192 29292 1 Hydrocortis one 20 mg tablet [generic] 1 tablet By Mouth Once daily For COPD - BE AWARE HYDROCORTISON E 20MG IN THE AM, 10MG in the afternoon 1 tablet 2023 Active 2023 88090 63733 1 Once daily By Mouth False VITAL SIGNS Date Time Diastolic blood pressure Systolic blood pressure Body height Body weight Temperature SpO2 Blood Sugar Pulse Respirations 122 53678 0 68.00 mm[Hg] - Sitting 101.00 mm[Hg] - Sitting 72 NI 234.60 NI 98.20 Tympanic 98.00 % 85.00/ min 18.00/min 122 36744 6 70.00 mm[Hg] - Lying Down 110.00 mm[Hg] - Lying Down 97.80 Tympanic 84.00/ min 18.00/min
--- OUTSIDE RECORDS SUMMARY | 2024-07-30 07:19 | External Medical Summary | Continuity Of Care Document ---
Author Name Unknown Address [address] [address] Organization [facility] () Care Team Providers Care Water Service Dispatcher Name Role Phone DO Mallory Amy Primary Care Provider [phone] Allergies Allergy Reaction Start Date End Date [...] Day 3 0.1 mL 07/10 Active 2023 57996 14987 0 1 time Intrad ermal False Tubersol 5 tub. unit/0.1 mL intradermal injection solution [Tuberculin PPD] 0.1mL Intradermal 1 time For PPD 2nd Step Give 2nd Step PPD Day 1 and Read results Day 3 (schedule 7 days after 1st READ) 0.1mL 07/10 Active 2023 17501 46683 0 1 time Intrad ermal False Tylenol 325 mg tablet 2 tabs By Mouth Every 4 hours as needed For Pain DO NOT EXCEED 3000 MG APAP/24 Hours 2 tabs 2023 Active 2023 57549 36629 0 Every 4 hours as needed By Mouth False Tylenol 325 mg tablet 2 tabs By Mouth Every 4 hours as needed For Fever >100 DO NOT EXCEED 3000 MG APAP/24 Hours 2 tabs 2023 Active 2023 71806 26325 0 Every 4 hours as needed By Mouth False Dulcolax (bisacodyl) 10 mg rectal suppository One Suppository per rectum PRN if Milk of Magnisia ineffective. Give on day 5 of no BM 1 sup 2023 Active 2023 38532 55071 1 Daily as needed Rectal False Fleet Enema 19 gram-7 gram/118 mL Administer per rectum PRN one time if dulcolax suppository not effective. Give on day 6 of no BM 1 2023 Active 2023 13191 75010 6 Daily as needed Rectal False Milk of Magnesia 400 mg/5 mL oral suspension [Magnesium hydroxide] PRN 30ml By Mouth Daily as needed for constipation one time daily if no BM, on day 4 of no BM (PRN refer to instructions) For Constipation 30 mL 2023 Active 2023 15398 64262 6 Daily as needed By Mouth False Nitroglycer in 0.4 mg sublingual tablet [generic] PRN 0.4 mg Sublingual Every 5 minutes as needed Every 5 min PRN x 3 doses PRN chest pain and notify provider For Chest Pain 0.4 mg 2023 Active 2023 81678 07814 5 Every 5 minutes as needed Sublin gual False Aripiprazol e 5 mg tablet [generic] 1/2 Tab By Mouth Once daily For depression 1/2 Tab 2023 Active 2023 07708 81321 1 Once daily By Mouth False Escitalopra m 5 mg tablet [generic] 1 tablet By Mouth Once daily For depression 1 tablet 2023 Active 2023 86496 92174 1 Once daily By Mouth False Probiotic (B. coagulans) 1 billion cell chewable tablet 1 tablet By Mouth Once daily For supplement 1 tablet 2023 Active 2023 60940 02537 7 Once daily By Mouth False Memantine 10 mg tablet [generic] 1 tablet By Mouth Twice daily For alzheimers 1 tablet 2023 Active 2023 38131 58800 0 Twice daily By Mouth False Lidocaine 4 % topical patch [generic] 2 patches Topical - apply in the morning and remove at night For pain 2 patches 2023 Active 2023 90409 76776 0 Twice daily Topica l False Nystatin (bulk) 1 billion unit powder [generic] apply Topically twice daily to affected skin For fungal skin infection apply 2023 Active 2023 30291 72344 6 Twice daily Topica l False Nystatin (bulk) 1 billion unit powder [generic] apply Topical Twice daily For fungal skin breakdown apply 2023 Active 2023 53664 34906 6 Twice daily Topica l False Albuterol sulfate HFA 90 mcg/actuati on aerosol inhaler [generic] 2 puffs Inhalation Every 4 hours As Needed For COPD 2 puffs 2023 Active 2023 87888 99361 2 Every 4 hours Inhala tion False Ascorbic acid (vitamin C) 1,000 mg capsule [generic] 1 tablet By Mouth Once daily For supplement 1 tablet 2023 Active 2023 93236 15155 2 Once daily By Mouth False Epinephrine 0.1 mg/mL injection syringe [generic] 1 dose Intramuscular As Needed for For anaphylaxis 1 dose 2023 Active 2023 54732 84367 1 Intram uscula r False Magnesium 64 mg (magnesium chloride) tablet,opal yed release [generic] 1 tablet By Mouth Twice daily For supplement 1 tablet 2023 Active 2023 35355 05586 6 Twice daily By Mouth False Multivitami n tablet [generic] 1 tablet By Mouth Once daily For supplement 1 tablet 2023 Active 2023 80047 63582 4 Once daily By Mouth False Senna 8.6 mg tablet 1 tablet By Mouth Once daily For constipation 1 tablet 2023 Active 2023 98039 39695 1 Once daily By Mouth False Solifenacin 5 mg tablet [generic] 1 tablet By Mouth Once daily For pulmonary hypertension 1 tablet 2023 Active 2023 91713 64307 0 Once daily By Mouth False Aspirin 81 mg tablet,opal yed release [generic] 1 tablet By Mouth Once daily For DVT prevention 1 tablet 2023 Active 2023 14522 03913 9 Once daily By Mouth False Cholecalcif emily (vitamin D3) 1,250 mcg (50,000 unit) capsule [generic] 1 tablet By Mouth Once daily For supplement 1 tablet 2023 Active 2023 35541 32216 6 Once daily By Mouth False Cyanocobala min (vit B-12) 1,000 mcg tablet [generic] 1 tablet By Mouth Once daily For supplement 1 tablet 2023 Active 2023 86250 71889 5 Once daily By Mouth False Ferrous sulfate 325 mg (65 mg iron) tablet [generic] 1 tablet By Mouth Once daily For supplement 1 tablet 2023 Active 2023 13204 98537 5 Once daily By Mouth False Fludrocorti sone 0.1 mg tablet [generic] 1 tablet by mouth Once daily For adrenal insufficiency 1 tablet 2023 Active 2023 13735 37128 1 Once daily By Mouth False Omeprazole 20 mg capsule,del ayed release [generic] 1 tablet By Mouth Once daily before breakfast For GERD 1 tablet 2023 Active 2023 47437 31048 1 Once daily By Mouth False Trelegy Ellipta 100 mcg-62.5 mcg-25 mcg powder for inhalation 1 inhalation Inhalation Once daily For copd 1 inhalat ion 2023 Active 2023 01530 62468 0 Once daily Inhala tion False Hydrocortis one 20 mg tablet [generic] 1 tablet By Mouth Once daily For COPD 1 tablet 07/07 Inactiv e 2023 46740 51841 1 Once daily By Mouth False Hydrocortis one 10 mg tablet [generic] 1 tablet By Mouth Once daily in the afternoon - BE AWARE HYDROCORTISON E 20MG IN THE AM, 10MG in the afternoon For COPD 1 tablet 2023 Active 2023 43205 31412 1 Once daily By Mouth False Hydrocortis one 20 mg tablet [generic] 07/07 Inactiv e 202315 49090 1 Hydrocortis one 20 mg tablet [generic] 1 tablet By Mouth Once daily For COPD - BE AWARE HYDROCORTISON E 20MG IN THE AM, 10MG in the afternoon 1 tablet 2023 00/00 /0000 Active 202315 57754 1 Once daily By Mouth False VITAL SIGNS Date Time Diastolic blood pressure Systolic blood pressure Body height Body weight Temperature SpO2 Blood Sugar Pulse Respirations 122 50154 0 68.00 mm[Hg] - Sitting 101.00 mm[Hg] - Sitting 72 NI 234.60 NI 98.20 Tympanic 98.00 % 85.00/ min 18.00/min
--- OUTSIDE RECORDS SUMMARY | 2024-07-30 07:19 | External Medical Summary | Continuity Of Care Document ---
Author Name Unknown Address [address] [address] Organization [facility] () Care Team Providers Care Piano Technician Name Role Phone DO Mallory Amy Primary Care Provider [phone] Allergies Allergy Reaction Start Date End Date [...] Day 3 0.1 mL 07/10 Active 2023 30225 63535 0 1 time Intrad ermal False Tubersol 5 tub. unit/0.1 mL intradermal injection solution [Tuberculin PPD] 0.1mL Intradermal 1 time For PPD 2nd Step Give 2nd Step PPD Day 1 and Read results Day 3 (schedule 7 days after 1st READ) 0.1mL 07/10 Active 2023 02624 46955 0 1 time Intrad ermal False Tylenol 325 mg tablet 2 tabs By Mouth Every 4 hours as needed For Pain DO NOT EXCEED 3000 MG APAP/24 Hours 2 tabs 2023 Active 2023 43394 68249 0 Every 4 hours as needed By Mouth False Tylenol 325 mg tablet 2 tabs By Mouth Every 4 hours as needed For Fever >100 DO NOT EXCEED 3000 MG APAP/24 Hours 2 tabs 2023 Active 2023 88047 74222 0 Every 4 hours as needed By Mouth False Dulcolax (bisacodyl) 10 mg rectal suppository One Suppository per rectum PRN if Milk of Magnisia ineffective. Give on day 5 of no BM 1 sup 2023 Active 2023 62567 97306 1 Daily as needed Rectal False Fleet Enema 19 gram-7 gram/118 mL Administer per rectum PRN one time if dulcolax suppository not effective. Give on day 6 of no BM 1 2023 Active 2023 48078 20738 6 Daily as needed Rectal False Milk of Magnesia 400 mg/5 mL oral suspension [Magnesium hydroxide] PRN 30ml By Mouth Daily as needed for constipation one time daily if no BM, on day 4 of no BM (PRN refer to instructions) For Constipation 30 mL 2023 Active 2023 62646 29362 6 Daily as needed By Mouth False Nitroglycer in 0.4 mg sublingual tablet [generic] PRN 0.4 mg Sublingual Every 5 minutes as needed Every 5 min PRN x 3 doses PRN chest pain and notify provider For Chest Pain 0.4 mg 2023 Active 2023 25781 86279 5 Every 5 minutes as needed Sublin gual False Aripiprazol e 5 mg tablet [generic] 1/2 Tab By Mouth Once daily For depression 1/2 Tab 2023 Active 2023 76137 47276 1 Once daily By Mouth False Escitalopra m 5 mg tablet [generic] 1 tablet By Mouth Once daily For depression 1 tablet 2023 Active 2023 47010 91558 1 Once daily By Mouth False Probiotic (B. coagulans) 1 billion cell chewable tablet 1 tablet By Mouth Once daily For supplement 1 tablet 2023 Active 2023 78387 15832 7 Once daily By Mouth False Memantine 10 mg tablet [generic] 1 tablet By Mouth Twice daily For alzheimers 1 tablet 2023 Active 2023 58540 45381 0 Twice daily By Mouth False Lidocaine 4 % topical patch [generic] 2 patches Topical - apply in the morning and remove at night For pain 2 patches 2023 Active 2023 46847 89425 0 Twice daily Topica l False Nystatin (bulk) 1 billion unit powder [generic] apply Topically twice daily to affected skin For fungal skin infection apply 2023 Active 2023 89236 75169 6 Twice daily Topica l False Nystatin (bulk) 1 billion unit powder [generic] apply Topical Twice daily For fungal skin breakdown apply 2023 Active 2023 20781 73836 6 Twice daily Topica l False Albuterol sulfate HFA 90 mcg/actuati on aerosol inhaler [generic] 2 puffs Inhalation Every 4 hours As Needed For COPD 2 puffs 2023 Active 2023 42374 53771 2 Every 4 hours Inhala tion False Ascorbic acid (vitamin C) 1,000 mg capsule [generic] 1 tablet By Mouth Once daily For supplement 1 tablet 2023 Active 2023 48106 18786 2 Once daily By Mouth False Epinephrine 0.1 mg/mL injection syringe [generic] 1 dose Intramuscular As Needed for For anaphylaxis 1 dose 2023 Active 2023 35610 37084 1 Intram uscula r False Magnesium 64 mg (magnesium chloride) tablet,opal yed release [generic] 1 tablet By Mouth Twice daily For supplement 1 tablet 2023 Active 2023 96212 27078 6 Twice daily By Mouth False Multivitami n tablet [generic] 1 tablet By Mouth Once daily For supplement 1 tablet 2023 Active 2023 55216 39352 4 Once daily By Mouth False Senna 8.6 mg tablet 1 tablet By Mouth Once daily For constipation 1 tablet 2023 Active 2023 50874 52812 1 Once daily By Mouth False Solifenacin 5 mg tablet [generic] 1 tablet By Mouth Once daily For pulmonary hypertension 1 tablet 2023 Active 2023 51168 87243 0 Once daily By Mouth False Aspirin 81 mg tablet,opal yed release [generic] 1 tablet By Mouth Once daily For DVT prevention 1 tablet 2023 Active 2023 50069 90300 9 Once daily By Mouth False Cholecalcif emily (vitamin D3) 1,250 mcg (50,000 unit) capsule [generic] 1 tablet By Mouth Once daily For supplement 1 tablet 2023 Active 2023 26406 47748 6 Once daily By Mouth False Cyanocobala min (vit B-12) 1,000 mcg tablet [generic] 1 tablet By Mouth Once daily For supplement 1 tablet 2023 Active 2023 92361 70128 5 Once daily By Mouth False Ferrous sulfate 325 mg (65 mg iron) tablet [generic] 1 tablet By Mouth Once daily For supplement 1 tablet 2023 Active 2023 78502 13228 5 Once daily By Mouth False Fludrocorti sone 0.1 mg tablet [generic] 1 tablet by mouth Once daily For adrenal insufficiency 1 tablet 2023 Active 2023 78968 21075 1 Once daily By Mouth False Omeprazole 20 mg capsule,del ayed release [generic] 1 tablet By Mouth Once daily before breakfast For GERD 1 tablet 2023 Active 2023 54418 56229 1 Once daily By Mouth False Trelegy Ellipta 100 mcg-62.5 mcg-25 mcg powder for inhalation 1 inhalation Inhalation Once daily For copd 1 inhalat ion 2023 Active 2023 76401 82516 0 Once daily Inhala tion False Hydrocortis one 20 mg tablet [generic] 1 tablet By Mouth Once daily For COPD 1 tablet 07/07 Inactiv e 2023 31600 59744 1 Once daily By Mouth False Hydrocortis one 10 mg tablet [generic] 1 tablet By Mouth Once daily in the afternoon - BE AWARE HYDROCORTISON E 20MG IN THE AM, 10MG in the afternoon For COPD 1 tablet 2023 Active 2023 92159 84538 1 Once daily By Mouth False Hydrocortis one 20 mg tablet [generic] 07/07 Inactiv e 2023 17957 80905 1 Hydrocortis one 20 mg tablet [generic] 1 tablet By Mouth Once daily For COPD - BE AWARE HYDROCORTISON E 20MG IN THE AM, 10MG in the afternoon 1 tablet 2023 Active 202315 38241 1 Once daily By Mouth False VITAL SIGNS Date Time Diastolic blood pressure Systolic blood pressure Body height Body weight Temperature SpO2 Blood Sugar Pulse Respirations 122 23942 0 68.00 mm[Hg] - Sitting 101.00 mm[Hg] - Sitting 72 NI 234.60 NI 98.20 Tympanic 98.00 % 85.00/ min 18.00/min 122 65639 6 70.00 mm[Hg] - Lying Down 110.00 mm[Hg] - Lying Down 97.80 Tympanic 84.00/ min 18.00/min
--- OUTSIDE RECORDS SUMMARY | 2024-07-30 07:19 | External Medical Summary | Continuity Of Care Document ---
Author Name Unknown Address [address] [address] Organization [facility] () Care Team Providers Care Glazier Structural Glass Name Role Phone DO Mallory Amy Primary Care Provider [phone] Allergies Allergy Reaction Start Date End Date [...] 3 0.1 mL 07/08 Inactiv e 2023 32691 13698 0 1 time Intrad ermal False Tubersol 5 tub. unit/0.1 mL intradermal injection solution [Tuberculin PPD] 0.1mL Intradermal 1 time For PPD 2nd Step Give 2nd Step PPD Day 1 and Read results Day 3 (schedule 7 days after 1st READ) 0.1mL 07/08 Inactiv e 2023 09364 33668 0 1 time Intrad ermal False Tubersol 5 tub. unit/0.1 mL intradermal injection solution [Tuberculin PPD] 0.1 mL Intradermal 1 time For PPD Step 1 GIVE on Day 1 and read results Day 3 0.1 mL 07/10 Active 2023 47291 02002 0 1 time Intrad ermal False Tubersol 5 tub. unit/0.1 mL intradermal injection solution [Tuberculin PPD] 0.1mL Intradermal 1 time For PPD 2nd Step Give 2nd Step PPD Day 1 and Read results Day 3 (schedule 7 days after 1st READ) 0.1mL 07/19 Active 2023 52423 67680 0 1 time Intrad ermal False Tylenol 325 mg tablet 2 tabs By Mouth Every 4 hours as needed For Pain DO NOT EXCEED 3000 MG APAP/24 Hours 2 tabs 2023 Active 2023 07837 71461 0 Every 4 hours as needed By Mouth False Tylenol 325 mg tablet 2 tabs By Mouth Every 4 hours as needed For Fever >100 DO NOT EXCEED 3000 MG APAP/24 Hours 2 tabs 2023 Active 2023 15096 53333 0 Every 4 hours as needed By Mouth False Dulcolax (bisacodyl) 10 mg rectal suppository One Suppository per rectum PRN if Milk of Magnisia ineffective. Give on day 5 of no BM 1 sup 2023 Active 2023 48019 67969 1 Daily as needed Rectal False Fleet Enema 19 gram-7 gram/118 mL Administer per rectum PRN one time if dulcolax suppository not effective. Give on day 6 of no BM 1 2023 Active 2023 48846 58123 6 Daily as needed Rectal False Milk of Magnesia 400 mg/5 mL oral suspension [Magnesium hydroxide] PRN 30ml By Mouth Daily as needed for constipation one time daily if no BM, on day 4 of no BM (PRN refer to instructions) For Constipation 30 mL 2023 Active 2023 81805 08686 6 Daily as needed By Mouth False Nitroglycer in 0.4 mg sublingual tablet [generic] PRN 0.4 mg Sublingual Every 5 minutes as needed Every 5 min PRN x 3 doses PRN chest pain and notify provider For Chest Pain 0.4 mg 2023 Active 2023 83341 25618 5 Every 5 minutes as needed Sublin gual False Aripiprazol e 5 mg tablet [generic] 1/2 Tab By Mouth Once daily For depression 1/2 Tab 2023 Active 2023 18833 34402 1 Once daily By Mouth False Escitalopra m 5 mg tablet [generic] 1 tablet By Mouth Once daily For depression 1 tablet 2023 Active 2023 51865 52538 1 Once daily By Mouth False Probiotic (B. coagulans) 1 billion cell chewable tablet 1 tablet By Mouth Once daily For supplement 1 tablet 2023 Active 2023 53301 20359 7 Once daily By Mouth False Memantine 10 mg tablet [generic] 1 tablet By Mouth Twice daily For alzheimers 1 tablet 2023 Active 2023 66976 75165 0 Twice daily By Mouth False Lidocaine 4 % topical patch [generic] 2 patches Topical - apply in the morning and remove at night For pain 2 patches 2023 Active 2023 38159 55484 0 Twice daily Topica l False Nystatin (bulk) 1 billion unit powder [generic] apply Topically twice daily to affected skin For fungal skin infection apply 2023 Active 2023 18146 55602 6 Twice daily Topica l False Nystatin (bulk) 1 billion unit powder [generic] apply Topical Twice daily For fungal skin breakdown apply 2023 Active 2023 18542 19445 6 Twice daily Topica l False Albuterol sulfate HFA 90 mcg/actuati on aerosol inhaler [generic] 2 puffs Inhalation Every 4 hours As Needed For COPD 2 puffs 2023 Active 2023 91203 01914 2 Every 4 hours Inhala tion False Ascorbic acid (vitamin C) 1,000 mg capsule [generic] 1 tablet By Mouth Once daily For supplement 1 tablet 2023 Active 2023 27545 34545 2 Once daily By Mouth False Epinephrine 0.1 mg/mL injection syringe [generic] 1 dose Intramuscular As Needed for For anaphylaxis 1 dose 2023 Active 2023 21678 28351 1 Intram uscula r False Magnesium 64 mg (magnesium chloride) tablet,opal yed release [generic] 1 tablet By Mouth Twice daily For supplement 1 tablet 2023 Active 2023 60909 41835 6 Twice daily By Mouth False Multivitami n tablet [generic] 1 tablet By Mouth Once daily For supplement 1 tablet 2023 Active 2023 06181 06966 4 Once daily By Mouth False Senna 8.6 mg tablet 1 tablet By Mouth Once daily For constipation 1 tablet 2023 Active 2023 69047 37485 1 Once daily By Mouth False Solifenacin 5 mg tablet [generic] 1 tablet By Mouth Once daily For pulmonary hypertension 1 tablet 2023 Active 2023 03540 91749 0 Once daily By Mouth False Aspirin 81 mg tablet,opal yed release [generic] 1 tablet By Mouth Once daily For DVT prevention 1 tablet 2023 Active 2023 06614 42983 9 Once daily By Mouth False Cholecalcif emily (vitamin D3) 1,250 mcg (50,000 unit) capsule [generic] 1 tablet By Mouth Once daily For supplement 1 tablet 2023 Active 2023 31306 63925 6 Once daily By Mouth False Cyanocobala min (vit B-12) 1,000 mcg tablet [generic] 1 tablet By Mouth Once daily For supplement 1 tablet 2023 Active 2023 50263 87759 5 Once daily By Mouth False Ferrous sulfate 325 mg (65 mg iron) tablet [generic] 1 tablet By Mouth Once daily For supplement 1 tablet 2023 Active 2023 76686 20966 5 Once daily By Mouth False Fludrocorti sone 0.1 mg tablet [generic] 1 tablet by mouth Once daily For adrenal insufficiency 1 tablet 2023 Active 2023 07286 80418 1 Once daily By Mouth False Omeprazole 20 mg capsule,del ayed release [generic] 1 tablet By Mouth Once daily before breakfast For GERD 1 tablet 2023 Active 2023 76570 71611 1 Once daily By Mouth False Trelegy Ellipta 100 mcg-62.5 mcg-25 mcg powder for inhalation 1 inhalation Inhalation Once daily For copd 1 inhalat ion 2023 Active 2023 73875 68361 0 Once daily Inhala tion False Hydrocortis one 20 mg tablet [generic] 1 tablet By Mouth Once daily For COPD 1 tablet 07/07 Inactiv e 2023 14365 75858 1 Once daily By Mouth False Hydrocortis one 10 mg tablet [generic] 1 tablet By Mouth Once daily in the afternoon - BE AWARE HYDROCORTISON E 20MG IN THE AM, 10MG in the afternoon For COPD 1 tablet 2023 Active 2023 49407 51029 1 Once daily By Mouth False Hydrocortis one 20 mg tablet [generic] 07/07 Inactiv e 2023 85397 33444 1 Hydrocortis one 20 mg tablet [generic] 1 tablet By Mouth Once daily For COPD - BE AWARE HYDROCORTISON E 20MG IN THE AM, 10MG in the afternoon 1 tablet 2023 Active 2023 78617 76883 1 Once daily By Mouth False VITAL SIGNS Date Time Diastolic blood pressure Systolic blood pressure Body height Body weight Temperature SpO2 Blood Sugar Pulse Respirations 122 25202 0 68.00 mm[Hg] - Sitting 101.00 mm[Hg] - Sitting 72 NI 234.60 NI 98.20 Tympanic 98.00 % 85.00/ min 18.00/min 122 81241 6 70.00 mm[Hg] - Lying Down 110.00 mm[Hg] - Lying Down 97.80 Tympanic 84.00/ min 18.00/min 31399 123 67569 1 74.00 mm[Hg] - Lying Down 116.00 mm[Hg] - Lying Down 97.40 Tympanic 74.00/ min 18.00/min
--- OUTSIDE RECORDS SUMMARY | 2024-07-30 07:19 | External Medical Summary | Continuity Of Care Document ---
Author Name Unknown Address [address] [address] Organization [facility] () Care Team Providers Care Steam And Power Superintendent Name Role Phone DO Mallory Amy Primary Care Provider [phone] Allergies Allergy Reaction Start Date End Date [...] 3 0.1 mL 07/08 Inactiv e 2023 42078 85202 0 1 time Intrad ermal False Tubersol 5 tub. unit/0.1 mL intradermal injection solution [Tuberculin PPD] 0.1mL Intradermal 1 time For PPD 2nd Step Give 2nd Step PPD Day 1 and Read results Day 3 (schedule 7 days after 1st READ) 0.1mL 07/08 Inactiv e 2023 18112 54337 0 1 time Intrad ermal False Tubersol 5 tub. unit/0.1 mL intradermal injection solution [Tuberculin PPD] 0.1 mL Intradermal 1 time For PPD Step 1 GIVE on Day 1 and read results Day 3 0.1 mL 07/10 Active 2023 07705 42869 0 1 time Intrad ermal False Tubersol 5 tub. unit/0.1 mL intradermal injection solution [Tuberculin PPD] 0.1mL Intradermal 1 time For PPD 2nd Step Give 2nd Step PPD Day 1 and Read results Day 3 (schedule 7 days after 1st READ) 0.1mL 07/19 Active 2023 18020 34222 0 1 time Intrad ermal False Tylenol 325 mg tablet 2 tabs By Mouth Every 4 hours as needed For Pain DO NOT EXCEED 3000 MG APAP/24 Hours 2 tabs 2023 Active 2023 43261 69561 0 Every 4 hours as needed By Mouth False Tylenol 325 mg tablet 2 tabs By Mouth Every 4 hours as needed For Fever >100 DO NOT EXCEED 3000 MG APAP/24 Hours 2 tabs 2023 Active 2023 37663 29462 0 Every 4 hours as needed By Mouth False Dulcolax (bisacodyl) 10 mg rectal suppository One Suppository per rectum PRN if Milk of Magnisia ineffective. Give on day 5 of no BM 1 sup 2023 Active 2023 88164 44260 1 Daily as needed Rectal False Fleet Enema 19 gram-7 gram/118 mL Administer per rectum PRN one time if dulcolax suppository not effective. Give on day 6 of no BM 1 2023 Active 2023 73969 87280 6 Daily as needed Rectal False Milk of Magnesia 400 mg/5 mL oral suspension [Magnesium hydroxide] PRN 30ml By Mouth Daily as needed for constipation one time daily if no BM, on day 4 of no BM (PRN refer to instructions) For Constipation 30 mL 2023 Active 2023 55950 55564 6 Daily as needed By Mouth False Nitroglycer in 0.4 mg sublingual tablet [generic] PRN 0.4 mg Sublingual Every 5 minutes as needed Every 5 min PRN x 3 doses PRN chest pain and notify provider For Chest Pain 0.4 mg 2023 Active 2023 07192 36514 5 Every 5 minutes as needed Sublin gual False Aripiprazol e 5 mg tablet [generic] 1/2 Tab By Mouth Once daily For depression 1/2 Tab 2023 Active 2023 75035 20235 1 Once daily By Mouth False Escitalopra m 5 mg tablet [generic] 1 tablet By Mouth Once daily For depression 1 tablet 2023 Active 2023 69974 79606 1 Once daily By Mouth False Probiotic (B. coagulans) 1 billion cell chewable tablet 1 tablet By Mouth Once daily For supplement 1 tablet 2023 Active 2023 32173 59281 7 Once daily By Mouth False Memantine 10 mg tablet [generic] 1 tablet By Mouth Twice daily For alzheimers 1 tablet 2023 Active 2023 53831 17210 0 Twice daily By Mouth False Lidocaine 4 % topical patch [generic] 2 patches Topical - apply in the morning and remove at night For pain 2 patches 2023 Active 2023 17329 21508 0 Twice daily Topica l False Nystatin (bulk) 1 billion unit powder [generic] apply Topically twice daily to affected skin For fungal skin infection apply 2023 Active 2023 36849 13971 6 Twice daily Topica l False Nystatin (bulk) 1 billion unit powder [generic] apply Topical Twice daily For fungal skin breakdown apply 2023 Active 2023 11567 19340 6 Twice daily Topica l False Albuterol sulfate HFA 90 mcg/actuati on aerosol inhaler [generic] 2 puffs Inhalation Every 4 hours As Needed For COPD 2 puffs 2023 Active 2023 91619 13634 2 Every 4 hours Inhala tion False Ascorbic acid (vitamin C) 1,000 mg capsule [generic] 1 tablet By Mouth Once daily For supplement 1 tablet 2023 Active 2023 86399 51447 2 Once daily By Mouth False Epinephrine 0.1 mg/mL injection syringe [generic] 1 dose Intramuscular As Needed for For anaphylaxis 1 dose 2023 Active 2023 76489 76855 1 Intram uscula r False Magnesium 64 mg (magnesium chloride) tablet,opal yed release [generic] 1 tablet By Mouth Twice daily For supplement 1 tablet 2023 Active 2023 95442 78835 6 Twice daily By Mouth False Multivitami n tablet [generic] 1 tablet By Mouth Once daily For supplement 1 tablet 2023 Active 2023 01555 92855 4 Once daily By Mouth False Senna 8.6 mg tablet 1 tablet By Mouth Once daily For constipation 1 tablet 2023 Active 2023 46582 84744 1 Once daily By Mouth False Solifenacin 5 mg tablet [generic] 1 tablet By Mouth Once daily For pulmonary hypertension 1 tablet 2023 Active 2023 63362 48310 0 Once daily By Mouth False Aspirin 81 mg tablet,opal yed release [generic] 1 tablet By Mouth Once daily For DVT prevention 1 tablet 2023 Active 2023 59937 94073 9 Once daily By Mouth False Cholecalcif emily (vitamin D3) 1,250 mcg (50,000 unit) capsule [generic] 1 tablet By Mouth Once daily For supplement 1 tablet 2023 Active 2023 84947 01705 6 Once daily By Mouth False Cyanocobala min (vit B-12) 1,000 mcg tablet [generic] 1 tablet By Mouth Once daily For supplement 1 tablet 2023 Active 2023 26413 73584 5 Once daily By Mouth False Ferrous sulfate 325 mg (65 mg iron) tablet [generic] 1 tablet By Mouth Once daily For supplement 1 tablet 2023 Active 2023 48906 45537 5 Once daily By Mouth False Fludrocorti sone 0.1 mg tablet [generic] 1 tablet by mouth Once daily For adrenal insufficiency 1 tablet 2023 Active 2023 84678 96335 1 Once daily By Mouth False Omeprazole 20 mg capsule,del ayed release [generic] 1 tablet By Mouth Once daily before breakfast For GERD 1 tablet 2023 Active 2023 73905 28526 1 Once daily By Mouth False Trelegy Ellipta 100 mcg-62.5 mcg-25 mcg powder for inhalation 1 inhalation Inhalation Once daily For copd 1 inhalat ion 2023 Active 2023 84183 03429 0 Once daily Inhala tion False Hydrocortis one 20 mg tablet [generic] 1 tablet By Mouth Once daily For COPD 1 tablet 07/07 Inactiv e 2023 40533 13189 1 Once daily By Mouth False Hydrocortis one 10 mg tablet [generic] 1 tablet By Mouth Once daily in the afternoon - BE AWARE HYDROCORTISON E 20MG IN THE AM, 10MG in the afternoon For COPD 1 tablet 2023 Active 2023 03396 23417 1 Once daily By Mouth False Hydrocortis one 20 mg tablet [generic] 07/07 Inactiv e 2023 46965 88131 1 Hydrocortis one 20 mg tablet [generic] 1 tablet By Mouth Once daily For COPD - BE AWARE HYDROCORTISON E 20MG IN THE AM, 10MG in the afternoon 1 tablet 2023 Active 2023 94281 45870 1 Once daily By Mouth False VITAL SIGNS Date Time Diastolic blood pressure Systolic blood pressure Body height Body weight Temperature SpO2 Blood Sugar Pulse Respirations 122 45248 0 68.00 mm[Hg] - Sitting 101.00 mm[Hg] - Sitting 72 NI 234.60 NI 98.20 Tympanic 98.00 % 85.00/ min 18.00/min 122 42882 6 70.00 mm[Hg] - Lying Down 110.00 mm[Hg] - Lying Down 97.80 Tympanic 84.00/ min 18.00/min 38414 123 25943 1 74.00 mm[Hg] - Lying Down 116.00 mm[Hg] - Lying Down 97.40 Tympanic 74.00/ min 18.00/min
--- OUTSIDE RECORDS SUMMARY | 2024-07-30 07:20 | External Medical Summary | Summary of Care ---
Author Name Unknown Organization [facility] Address [address] [address] Phone [phone] Care Team Providers Care Seismograph Recorder Name Role Phone Chuy Batista MD Primary Care Provider [phone] Reason for Visit * Reason Onset Date Comments Advice 06/21/2024 Encounter Details Date Type Department Care Team (Late st Contact Info) Description 06/21/2024 Telephone Urology Miri Orozco [address] [address] Valdemar Prado MD [address] [place] [address] Advice Allergies Active Allergy Reactions Criticality Noted Date Comments Chocolate Diarrhea 05/14/2023 Chocolate Flavor High 10/09/2023 Other Reaction(s): DIARRHEA/ Cannot take, interacts w/ medications. Clindamycin Hcl 09/24/2005 rash Cranberry 10/20/2023 Iodinated Contrast Media 10/01/2015 Ioversol Other (Please comment) High 08/10/[address] IV DYE Pembrolizumab High 10/10/2023 Other Reaction(s): myocarditis documented as of this encounter (statuses as of 06/26/2024) Medications Syringe/Needle , Disp, 25G X 1-1/2" [...] THE MORNING 16 mL 3 023 Active Trelesandi Ellipta 200-62.5-25 MCG/ACT Aerosol Powder Breath Activated [...] the morning. 90 Capsule 1 024 Active [facility] Wound/Burn Dressing External GelIndications :Pressure injury of sacral region, stage 2 (HCC) Apply topically to affected area daily. Apply to pressure ulcer of buttocks. 88 mL 3 024 Active predniSONE 20 MG Oral Tablet (Deltasone)Ind ications:Uroth elial carcinoma of bladder (HCC),Other acute myocarditis TAKE 4 TABLETS BY MOUTH EVERY MORNING WITH FOOD 120 Tablet 1 Active Additional Information Patient not taking.Reported on [...] mouth in the morning. 30 Tablet 11 Active Sulfamethoxazo le-Trimethopri m 800-160 MG Oral [...] Additional Information Patient not taking.Reported on 06/23/2024 Midodrine HCl 5 MG Oral Tablet (Proamatine)In dications:Orth ostatic hypotension Take 1 Tablet by mouth 3 times a day. Take at 8 am, noon, 4 pm 270 Tablet 3 024 2023 Discontinued documented as of this encounter (statuses as of 06/26/2024) Active Problems Problem Noted Date Diagnosed Date [...] as of this encounter (statuses as of 06/26/2024) Resolved Problems Problem Noted Date Diagnosed Date [...] as of this encounter (statuses as of 06/26/2024) Immunizations Name Administration Dates Next Due COVID-19 mRNA, LNP-s, No Pre serve, 2-Dose Series ([employer]) 05/30/2021,10/29/2020,10/08/2020 COVID-19, LNP-s, No Preserve , Prosper-sucrose, [...] No 12/27/2023 Does the household have a [facility] source of income? (Household - for ages [...] encounter Miscellaneous Notes * Telephone Encounter - Valdemar Prado MD - 06/26/2024 4:40 PM EST Records are obtained and reviewed. Care seems appropriate so far. The physicians which are seeing the patient in person are better equipped to evaluate his ongoing care and condition than myself at this time. Would inquire with the patient's inpatient care team acutely regarding his ongoing health issues. I do not see patients at [facility] and therefore can not be acutely involved in his care at that location. We will follow-up as outpatient as scheduled. Thanks, HM * Telephone Encounter - Hanna Olivo LPN - 06/26/2024 1:[address] Prado All [facility] records printed and on your desk for review. Patient is admitted at [facility] currently. Pleaseadvise if you have any recommendations outside of current treatment plan. Thank you Yolie * Telephone Encounter - Shara Sanders OSA - 06/26/2024 1:39 PM EST Pt calling in stating pt ended up at [facility] again, so had to cancel appt 06/27/24. asking for a call back from Dr. Prado about pt's case. Pt has confusion, and they are doing more testing for him, his current DX is Delirium and UTI. They also put the wrong catheter bag in him, they put him on a 17 and he's supposed to be on a 22. asking [address] Prado is able to get involved in pt's case at [facility]? His hospital physician is Dr. Mckinney. is really concerned and would like to know if Dr. Prado can call her back to discuss. * Telephone Encounter - Valdemar Prado MD - 06/21/2024 3:20 PM EST Noted. Can provide / scan results when available. Has f/u appointment in near future, keep visit. Thx, * Telephone Encounter - Kate Chakraborty LPN - 06/21/2024 1:38 PM EST Patients would like to make Dr Prado aware patient was in patient for 2/5 weeks than transferred to center care. She states center care ran a urine culture and is pending results. * Telephone Encounter - Rach Fox OSA - 06/21/2024 10:50 AM EST Patient was in the hospital for Sepsis and is confused as to why he has a UTI after all the antibiotics he was on. Please return call. documented in this encounter Plan of Treatment Upcoming Encounters Date Type Department Care Team (Late st Contact Info) Description 07/25/2024 2:45 PM EST Office Visit Hematology/Oncology [facility] [address] [address] [place] [phone] Xavi Gramajo MD [address] [address] [place] [address] 08/28/2024 3:00 PM EST Office Visit Family Practice, [facility] [address] [facility] [facility] [address] [address] Chuy Batista MD [facility] [place] [facility] [place] [address] 09/04/2024 1:00 PM EST Procedure Only Urology, [place] [address] [place] [address] Ernesto Villareal MD [address] [place] [address] 09/14/2024 1:00 PM EST Cardiac Studies Cardiac Studies, [facility] [address] [place] [address] 10/13/2024 11:20 AM EST Office Visit Neurology [facility] [address] [place] [address] Ellie Duncan MD [address] [facility] [place], [place] [address] Health Maintenance Due Date Last Done Comments Albumin/Creatinine Ratio 1963 DTap/Tdap Vaccines (1 - Tdap) 1964 Adult Wellness Visit 02/01/2020 01/31/2019 COVID-19 Vaccine ( season) 2024 07/22/2022, 07/22/2022, 02/11/2022, Additional history exists CKD PHOS USE SMARTSET 39346 09/11/202408/17, 09/11/2023, 07/14/2021, Additional history exists GFR 10/13/2024 04/12/2024, 10/15, 11/03/2023, Additional history exists Depression Screening 12/26/2024 12/27/2023 CKD HGB USE SMARTSET 52806 04/12/202504/12, 04/12/2024, 12/13/2023, Additional history exists Pneumococcal [...] Power of Attor philipp? No Care Teams Seismograph Recorder Relationship Specialty Start Date End Date Chuy Batista MD [address] [place] [address] PCP - General Family Medicine 05/31/24 documented as of this encounter
--- OUTSIDE RECORDS SUMMARY | 2024-07-30 07:20 | External Medical Summary | Continuity Of Care Document ---
Author Name Unknown Address [address] [address] Organization [facility] () Care Team Providers Care Choke Reamer Name Role Phone DO Mallory Amy Primary Care Provider [phone] Allergies Allergy Reaction Start Date End Date [...] Day 3 0.1 mL 07/10 Active 2023 19274 25333 0 1 time Intrad ermal False Tubersol 5 tub. unit/0.1 mL intradermal injection solution [Tuberculin PPD] 0.1mL Intradermal 1 time For PPD 2nd Step Give 2nd Step PPD Day 1 and Read results Day 3 (schedule 7 days after 1st READ) 0.1mL 07/10 Active 2023 60460 24385 0 1 time Intrad ermal False Tylenol 325 mg tablet 2 tabs By Mouth Every 4 hours as needed For Pain DO NOT EXCEED 3000 MG APAP/24 Hours 2 tabs 2023 Active 2023 01903 37012 0 Every 4 hours as needed By Mouth False Tylenol 325 mg tablet 2 tabs By Mouth Every 4 hours as needed For Fever >100 DO NOT EXCEED 3000 MG APAP/24 Hours 2 tabs 2023 Active 2023 47625 13180 0 Every 4 hours as needed By Mouth False Dulcolax (bisacodyl) 10 mg rectal suppository One Suppository per rectum PRN if Milk of Magnisia ineffective. Give on day 5 of no BM 1 sup 2023 Active 2023 95636 19481 1 Daily as needed Rectal False Fleet Enema 19 gram-7 gram/118 mL Administer per rectum PRN one time if dulcolax suppository not effective. Give on day 6 of no BM 1 2023 Active 2023 88810 67878 6 Daily as needed Rectal False Milk of Magnesia 400 mg/5 mL oral suspension [Magnesium hydroxide] PRN 30ml By Mouth Daily as needed for constipation one time daily if no BM, on day 4 of no BM (PRN refer to instructions) For Constipation 30 mL 2023 Active 2023 16786 83224 6 Daily as needed By Mouth False Nitroglycer in 0.4 mg sublingual tablet [generic] PRN 0.4 mg Sublingual Every 5 minutes as needed Every 5 min PRN x 3 doses PRN chest pain and notify provider For Chest Pain 0.4 mg 2023 Active 2023 18376 72731 5 Every 5 minutes as needed Sublin gual False Aripiprazol e 5 mg tablet [generic] 1/2 Tab By Mouth Once daily For depression 1/2 Tab 2023 Active 2023 52385 27354 1 Once daily By Mouth False Escitalopra m 5 mg tablet [generic] 1 tablet By Mouth Once daily For depression 1 tablet 2023 Active 2023 85656 41490 1 Once daily By Mouth False Probiotic (B. coagulans) 1 billion cell chewable tablet 1 tablet By Mouth Once daily For supplement 1 tablet 2023 Active 2023 48090 94035 7 Once daily By Mouth False Memantine 10 mg tablet [generic] 1 tablet By Mouth Twice daily For alzheimers 1 tablet 2023 Active 2023 31194 87234 0 Twice daily By Mouth False Lidocaine 4 % topical patch [generic] 2 patches Topical - apply in the morning and remove at night For pain 2 patches 2023 Active 2023 08628 54588 0 Twice daily Topica l False Nystatin (bulk) 1 billion unit powder [generic] apply Topically twice daily to affected skin For fungal skin infection apply 2023 Active 2023 41741 95189 6 Twice daily Topica l False Nystatin (bulk) 1 billion unit powder [generic] apply Topical Twice daily For fungal skin breakdown apply 2023 Active 2023 73240 89299 6 Twice daily Topica l False Albuterol sulfate HFA 90 mcg/actuati on aerosol inhaler [generic] 2 puffs Inhalation Every 4 hours As Needed For COPD 2 puffs 2023 Active 2023 25721 41517 2 Every 4 hours Inhala tion False Ascorbic acid (vitamin C) 1,000 mg capsule [generic] 1 tablet By Mouth Once daily For supplement 1 tablet 2023 Active 2023 71325 88265 2 Once daily By Mouth False VITAL SIGNS Date Time Diastolic blood pressure Systolic blood pressure Body height Body weight Temperature SpO2 Blood Sugar Pulse Respirations 42408 122 54327 0 68.00 mm[Hg] - Sitting 101.00 mm[Hg] - Sitting 72 NI 234.60 NI 98.20 Tympanic 98.00 % 85.00/ min 18.00/min
--- OUTSIDE RECORDS SUMMARY | 2024-07-30 07:20 | External Medical Summary | Summary of Care ---
Author Name Unknown Organization [facility] Address [address] [facility] [address] Phone [phone] Care Team Providers Care Powered Bridge Specialist Name Role Phone Chuy Batista MD Primary Care Provider [phone] Reason for Visit * Reason Onset Date Comments Advice 06/26/2024 Encounter Details Date Type Department Care Team (Late st Contact Info) Description 06/26/2024 Telephone Urology Miri Orozco [address] [address] Valdemar Prado MD [address] [place] [address] Advice Allergies Active Allergy Reactions Criticality Noted Date Comments Chocolate Diarrhea 05/14/2023 Chocolate Flavor High 10/09/2023 Other Reaction(s): DIARRHEA/ Cannot take, interacts w/ medications. Clindamycin Hcl 09/24/2005 rash Cranberry 10/20/2023 Iodinated Contrast Media 10/01/2015 Ioversol Other (Please comment) High 08/10/[address] IV DYE Pembrolizumab High 10/10/2023 Other Reaction(s): myocarditis documented as of this encounter (statuses as of 06/26/2024) Medications Syringe/Needle, Disp, 25G X 1-1/2" 3 ML MISC To use with injection of hydrocortisone if needed 2 Each 5 08/31/19 16 Active Additional Information Patient not taking.Reported on 06/23/2024 Breo Ellipta 200-25 MCG/ACT Inhalation Aerosol Powder Breath Activated (fluticasone furoate-vilante rol) INHALE 1 PUFF BY MOUTH EVERY DAY [...] dications:Anaph ylaxis, sequela USE DIRECTED 1 Each 01/28/20 23 [...] Omeprazole 20 MG Oral Capsule Delayed Release (PriLOSEC)Indic ations:Gastroes ophageal reflux disease, unspecified whether esophagitis present Take 1 Capsule by mouth in the morning. 90 Capsule 1 11/12/19 24 Active [facility] Wound/Burn Dressing External GelIndications: Pressure injury of sacral region, stage 2 (HCC) Apply topically to affected area daily. Apply to pressure ulcer of buttocks. 88 mL 3 11/12/19 24 Active predniSONE 20 MG Oral Tablet (Deltasone)Denice cations:Urothel ial carcinoma of bladder (HCC),Other acute myocarditis TAKE [...] Active Memantine HCl 5 MG Oral Tablet (Namenda)Indica tions:MCI (mild cognitive impairment) 5 mg once a [...] morning. 30 Tablet 11 03/07/20 24 Active Sulfamethoxazol e-Trimethoprim 800-160 MG Oral Tablet (Bactrim DS)Indications: Urothelial carcinoma of bladder (HCC),Other acute myocarditis 1 [...] 1 TABLET IN THE AFTERNOON 05/25/20 24 Active Magnesium Cl-Calcium Carbonate 71.5-119 MG Oral Tablet Delayed Release Take 64 mg by mouth in the morning and 64 mg before bedtime. 01/17/20 24 Active documented as of this encounter [...] mRNA, LNP-s, No Pre serve, 2-Dose Series ([employer]) 05/30/2021,10/29/2020,10/08/2020 COVID-19, LNP-s, No Preserve , Prosper-sucrose, [...] No 12/27/2023 Does the household have a [facility] source of income? (Household - for ages [...] encounter Miscellaneous Notes * Telephone Encounter - Rach Fox OSA - 06/26/2024 1:58 PM EST Patient's called very upset. Patient was admitted to [facility] for UTI and Sylvia and is now Septic. She said they also gave him the wrong size catheter and is worried about infection. She would like Dr Prado to review hospital notes and return call with advice. documented in this encounter Plan of Treatment Upcoming Encounters Date Type Department Care Team (Late st Contact Info) Description 07/25/2024 2:45 PM EST Office Visit Hematology/Oncology [facility] [address] [facility] [place] [address] Xavi Gramajo MD [address] [place] [address] 08/28/2024 3:00 PM EST Office Visit [facility] [address] [place] [address] Chuy Batista MD [address] [place] [facility] [place] [address] 09/04/2024 1:00 PM EST Procedure Only Urology, [address] [address] Ernesto Villareal MD [address] [facility] [place] [address] 09/14/2024 1:00 PM EST Cardiac Studies Cardiac Studies, [facility] [address] [facility] [place] [address] 10/13/2024 11:20 AM EST Office Visit Neurology [facility] [address] [facility] [place] [address] Ellie Duncan MD [address] [place] [address] Health Maintenance Due Date Last Done Comments Albumin/Creatinine Ratio 1963 DTap/Tdap Vaccines (1 - Tdap) 1964 Adult Wellness Visit 02/01/2020 01/31/2019 COVID-19 Vaccine ( season) 2024 07/22/2022, 07/22/2022, 02/11/2022, Additional history exists CKD PHOS USE SMARTSET 68140 09/11/202408/17, 09/11/2023, 07/14/2021, Additional history exists GFR 10/13/2024 04/12/2024, 10/15, 11/03/2023, Additional history exists Depression Screening 12/26/2024 12/27/2023 CKD HGB USE SMARTSET 40894 04/12/202504/12, 04/12/2024, 12/13/2023, Additional history exists Pneumococcal [...] Power of Attor philipp? No Care Teams Powered Bridge Specialist Relationship Specialty Start Date End Date Chuy Batista MD [address] [place] [address] PCP - General Family Medicine 05/31/24 documented as of this encounter
--- OUTSIDE RECORDS SUMMARY | 2024-07-30 07:20 | External Medical Summary | Continuity Of Care Document ---
Author Name Unknown Address [address] [address] Organization [facility] () Care Team Providers Care Black Puller Name Role Phone DO Mallory Amy Primary Care Provider [phone] Allergies Allergy Reaction Start Date End Date [...] Day 3 0.1 mL 07/10 Active 2023 63629 30637 0 1 time Intrad ermal False Tubersol 5 tub. unit/0.1 mL intradermal injection solution [Tuberculin PPD] 0.1mL Intradermal 1 time For PPD 2nd Step Give 2nd Step PPD Day 1 and Read results Day 3 (schedule 7 days after 1st READ) 0.1mL 07/10 Active 2023 15683 66543 0 1 time Intrad ermal False Tylenol 325 mg tablet 2 tabs By Mouth Every 4 hours as needed For Pain DO NOT EXCEED 3000 MG APAP/24 Hours 2 tabs 2023 Active 2023 43180 82052 0 Every 4 hours as needed By Mouth False Tylenol 325 mg tablet 2 tabs By Mouth Every 4 hours as needed For Fever >100 DO NOT EXCEED 3000 MG APAP/24 Hours 2 tabs 2023 Active 2023 20571 56812 0 Every 4 hours as needed By Mouth False Dulcolax (bisacodyl) 10 mg rectal suppository One Suppository per rectum PRN if Milk of Magnisia ineffective. Give on day 5 of no BM 1 sup 2023 Active 2023 05293 93390 1 Daily as needed Rectal False Fleet Enema 19 gram-7 gram/118 mL Administer per rectum PRN one time if dulcolax suppository not effective. Give on day 6 of no BM 1 2023 Active 2023 31443 53222 6 Daily as needed Rectal False Milk of Magnesia 400 mg/5 mL oral suspension [Magnesium hydroxide] PRN 30ml By Mouth Daily as needed for constipation one time daily if no BM, on day 4 of no BM (PRN refer to instructions) For Constipation 30 mL 2023 Active 2023 60769 25193 6 Daily as needed By Mouth False Nitroglycer in 0.4 mg sublingual tablet [generic] PRN 0.4 mg Sublingual Every 5 minutes as needed Every 5 min PRN x 3 doses PRN chest pain and notify provider For Chest Pain 0.4 mg 2023 Active 2023 59397 62321 5 Every 5 minutes as needed Sublin gual False Aripiprazol e 5 mg tablet [generic] 1/2 Tab By Mouth Once daily For depression 1/2 Tab 2023 Active 2023 33583 89681 1 Once daily By Mouth False Escitalopra m 5 mg tablet [generic] 1 tablet By Mouth Once daily For depression 1 tablet 2023 Active 2023 40083 34801 1 Once daily By Mouth False Probiotic (B. coagulans) 1 billion cell chewable tablet 1 tablet By Mouth Once daily For supplement 1 tablet 2023 Active 2023 40047 57072 7 Once daily By Mouth False Memantine 10 mg tablet [generic] 1 tablet By Mouth Twice daily For alzheimers 1 tablet 2023 Active 2023 12452 56758 0 Twice daily By Mouth False Lidocaine 4 % topical patch [generic] 2 patches Topical - apply in the morning and remove at night For pain 2 patches 2023 Active 2023 47535 58344 0 Twice daily Topica l False Nystatin (bulk) 1 billion unit powder [generic] apply Topically twice daily to affected skin For fungal skin infection apply 2023 Active 2023 77762 13832 6 Twice daily Topica l False Nystatin (bulk) 1 billion unit powder [generic] apply Topical Twice daily For fungal skin breakdown apply 2023 Active 2023 65595 60940 6 Twice daily Topica l False Albuterol sulfate HFA 90 mcg/actuati on aerosol inhaler [generic] 2 puffs Inhalation Every 4 hours As Needed For COPD 2 puffs 2023 Active 2023 98582 63468 2 Every 4 hours Inhala tion False Ascorbic acid (vitamin C) 1,000 mg capsule [generic] 1 tablet By Mouth Once daily For supplement 1 tablet 2023 Active 2023 02450 13705 2 Once daily By Mouth False Epinephrine 0.1 mg/mL injection syringe [generic] 1 dose Intramuscular As Needed for For anaphylaxis 1 dose 2023 Active 2023 44251 94522 1 Intram uscula r False Magnesium 64 mg (magnesium chloride) tablet,opal yed release [generic] 1 tablet By Mouth Twice daily For supplement 1 tablet 2023 Active 2023 14068 70287 6 Twice daily By Mouth False Multivitami n tablet [generic] 1 tablet By Mouth Once daily For supplement 1 tablet 2023 Active 2023 28128 58280 4 Once daily By Mouth False Senna 8.6 mg tablet 1 tablet By Mouth Once daily For constipation 1 tablet 2023 Active 2023 94008 75429 1 Once daily By Mouth False Solifenacin 5 mg tablet [generic] 1 tablet By Mouth Once daily For pulmonary hypertension 1 tablet 2023 Active 2023 57107 31255 0 Once daily By Mouth False Aspirin 81 mg tablet,opal yed release [generic] 1 tablet By Mouth Once daily For DVT prevention 1 tablet 2023 Active 2023 91378 81760 9 Once daily By Mouth False Cholecalcif emily (vitamin D3) 1,250 mcg (50,000 unit) capsule [generic] 1 tablet By Mouth Once daily For supplement 1 tablet 2023 Active 2023 22974 92574 6 Once daily By Mouth False Cyanocobala min (vit B-12) 1,000 mcg tablet [generic] 1 tablet By Mouth Once daily For supplement 1 tablet 2023 Active 2023 07597 64383 5 Once daily By Mouth False Ferrous sulfate 325 mg (65 mg iron) tablet [generic] 1 tablet By Mouth Once daily For supplement 1 tablet 2023 Active 2023 23626 80449 5 Once daily By Mouth False Fludrocorti sone 0.1 mg tablet [generic] 1 tablet by mouth Once daily For adrenal insufficiency 1 tablet 2023 Active 2023 84487 15624 1 Once daily By Mouth False Omeprazole 20 mg capsule,del ayed release [generic] 1 tablet By Mouth Once daily before breakfast For GERD 1 tablet 2023 Active 2023 48838 98269 1 Once daily By Mouth False Trelegy Ellipta 100 mcg-62.5 mcg-25 mcg powder for inhalation 1 inhalation Inhalation Once daily For copd 1 inhalat ion 2023 Active 2023 82398 85502 0 Once daily Inhala tion False Hydrocortis one 20 mg tablet [generic] 1 tablet By Mouth Once daily For COPD 1 tablet 2023 Active 2023 92371 94534 1 Once daily By Mouth False Hydrocortis one 10 mg tablet [generic] 1 tablet By Mouth Once daily in the afternoon - BE AWARE HYDROCORTISON E 20MG IN THE AM, 10MG in the afternoon For COPD 1 tablet 2023 Active 2023 97357 68492 1 Once daily By Mouth False VITAL SIGNS Date Time Diastolic blood pressure Systolic blood pressure Body height Body weight Temperature SpO2 Blood Sugar Pulse Respirations 122 01741 0 68.00 mm[Hg] - Sitting 101.00 mm[Hg] - Sitting 72 NI 234.60 NI 98.20 Tympanic 98.00 % 85.00/ min 18.00/min
--- OUTSIDE RECORDS SUMMARY | 2024-07-30 07:20 | External Medical Summary | Continuity Of Care Document ---
Author Name Unknown Address [address] [address] Organization [facility] () Care Team Providers Care Ortho Rn Name Role Phone DO Mallory Amy Primary Care Provider [phone] Allergies Allergy Reaction Start Date End Date [...] 3 0.1 mL 07/08 Inactiv e 2023 20871 68183 0 1 time Intrad ermal False Tubersol 5 tub. unit/0.1 mL intradermal injection solution [Tuberculin PPD] 0.1mL Intradermal 1 time For PPD 2nd Step Give 2nd Step PPD Day 1 and Read results Day 3 (schedule 7 days after 1st READ) 0.1mL 07/08 Inactiv e 2023 43547 51756 0 1 time Intrad ermal False Tubersol 5 tub. unit/0.1 mL intradermal injection solution [Tuberculin PPD] 0.1 mL Intradermal 1 time For PPD Step 1 GIVE on Day 1 and read results Day 3 0.1 mL 07/10 Active 2023 58918 30040 0 1 time Intrad ermal False Tubersol 5 tub. unit/0.1 mL intradermal injection solution [Tuberculin PPD] 0.1mL Intradermal 1 time For PPD 2nd Step Give 2nd Step PPD Day 1 and Read results Day 3 (schedule 7 days after 1st READ) 0.1mL 07/19 Active 2023 36413 36307 0 1 time Intrad ermal False Tylenol 325 mg tablet 2 tabs By Mouth Every 4 hours as needed For Pain DO NOT EXCEED 3000 MG APAP/24 Hours 2 tabs 2023 Active 2023 95604 34469 0 Every 4 hours as needed By Mouth False Tylenol 325 mg tablet 2 tabs By Mouth Every 4 hours as needed For Fever >100 DO NOT EXCEED 3000 MG APAP/24 Hours 2 tabs 2023 Active 2023 51851 40338 0 Every 4 hours as needed By Mouth False Dulcolax (bisacodyl) 10 mg rectal suppository One Suppository per rectum PRN if Milk of Magnisia ineffective. Give on day 5 of no BM 1 sup 2023 Active 2023 50288 46810 1 Daily as needed Rectal False Fleet Enema 19 gram-7 gram/118 mL Administer per rectum PRN one time if dulcolax suppository not effective. Give on day 6 of no BM 1 2023 Active 2023 54222 98897 6 Daily as needed Rectal False Milk of Magnesia 400 mg/5 mL oral suspension [Magnesium hydroxide] PRN 30ml By Mouth Daily as needed for constipation one time daily if no BM, on day 4 of no BM (PRN refer to instructions) For Constipation 30 mL 07/08 Inactiv e 2023 97947 81912 6 Daily as needed By Mouth False Nitroglycer in 0.4 mg sublingual tablet [generic] PRN 0.4 mg Sublingual Every 5 minutes as needed Every 5 min PRN x 3 doses PRN chest pain and notify provider For Chest Pain 0.4 mg 2023 Active 2023 02779 75491 5 Every 5 minutes as needed Sublin gual False Aripiprazol e 5 mg tablet [generic] 1/2 Tab By Mouth Once daily For depression 1/2 Tab 2023 Active 2023 67997 92686 1 Once daily By Mouth False Escitalopra m 5 mg tablet [generic] 1 tablet By Mouth Once daily For depression 1 tablet 2023 Active 2023 00076 34930 1 Once daily By Mouth False Probiotic (B. coagulans) 1 billion cell chewable tablet 1 tablet By Mouth Once daily For supplement 1 tablet 2023 Active 2023 41778 52492 7 Once daily By Mouth False Memantine 10 mg tablet [generic] 1 tablet By Mouth Twice daily For alzheimers 1 tablet 2023 Active 2023 50482 67897 0 Twice daily By Mouth False Lidocaine 4 % topical patch [generic] 2 patches Topical - apply in the morning and remove at night For pain 2 patches 2023 Active 2023 74463 18094 0 Twice daily Topica l False Nystatin (bulk) 1 billion unit powder [generic] apply Topically twice daily to affected skin For fungal skin infection apply 2023 Active 2023 82435 33024 6 Twice daily Topica l False Nystatin (bulk) 1 billion unit powder [generic] apply Topical Twice daily For fungal skin breakdown apply 2023 Active 2023 71465 43715 6 Twice daily Topica l False Albuterol sulfate HFA 90 mcg/actuati on aerosol inhaler [generic] 2 puffs Inhalation Every 4 hours As Needed For COPD 2 puffs 2023 Active 2023 51152 38254 2 Every 4 hours Inhala tion False Ascorbic acid (vitamin C) 1,000 mg capsule [generic] 1 tablet By Mouth Once daily For supplement 1 tablet 2023 Active 2023 16069 49643 2 Once daily By Mouth False Epinephrine 0.1 mg/mL injection syringe [generic] 1 dose Intramuscular As Needed for For anaphylaxis 1 dose 2023 Active 2023 47064 60095 1 Intram uscula r False Magnesium 64 mg (magnesium chloride) tablet,opal yed release [generic] 1 tablet By Mouth Twice daily For supplement 1 tablet 2023 Active 2023 39380 29459 6 Twice daily By Mouth False Multivitami n tablet [generic] 1 tablet By Mouth Once daily For supplement 1 tablet 2023 Active 2023 62418 99633 4 Once daily By Mouth False Senna 8.6 mg tablet 1 tablet By Mouth Once daily For constipation 1 tablet 2023 Active 2023 13666 01129 1 Once daily By Mouth False Solifenacin 5 mg tablet [generic] 1 tablet By Mouth Once daily For pulmonary hypertension 1 tablet 2023 Active 2023 78955 58871 0 Once daily By Mouth False Aspirin 81 mg tablet,opal yed release [generic] 1 tablet By Mouth Once daily For DVT prevention 1 tablet 2023 Active 2023 10126 14825 9 Once daily By Mouth False Cholecalcif emily (vitamin D3) 1,250 mcg (50,000 unit) capsule [generic] 1 tablet By Mouth Once daily For supplement 1 tablet 2023 Active 2023 82128 47558 6 Once daily By Mouth False Cyanocobala min (vit B-12) 1,000 mcg tablet [generic] 1 tablet By Mouth Once daily For supplement 1 tablet 2023 Active 2023 23661 55675 5 Once daily By Mouth False Ferrous sulfate 325 mg (65 mg iron) tablet [generic] 1 tablet By Mouth Once daily For supplement 1 tablet 2023 Active 2023 87326 54549 5 Once daily By Mouth False Fludrocorti sone 0.1 mg tablet [generic] 1 tablet by mouth Once daily For adrenal insufficiency 1 tablet 2023 Active 2023 47324 74299 1 Once daily By Mouth False Omeprazole 20 mg capsule,del ayed release [generic] 1 tablet By Mouth Once daily before breakfast For GERD 1 tablet 2023 Active 2023 97677 48688 1 Once daily By Mouth False Trelegy Ellipta 100 mcg-62.5 mcg-25 mcg powder for inhalation 1 inhalation Inhalation Once daily For copd 1 inhalat ion 2023 Active 2023 39702 21519 0 Once daily Inhala tion False Hydrocortis one 20 mg tablet [generic] 1 tablet By Mouth Once daily For COPD 1 tablet 07/07 Inactiv e 2023 18810 63101 1 Once daily By Mouth False Hydrocortis one 10 mg tablet [generic] 1 tablet By Mouth Once daily in the afternoon - BE AWARE HYDROCORTISON E 20MG IN THE AM, 10MG in the afternoon For COPD 1 tablet 2023 Active 2023 86219 22682 1 Once daily By Mouth False Hydrocortis one 20 mg tablet [generic] 07/07 Inactiv e 2023 12470 02163 1 Hydrocortis one 20 mg tablet [generic] 1 tablet By Mouth Once daily For COPD - BE AWARE HYDROCORTISON E 20MG IN THE AM, 10MG in the afternoon 1 tablet 2023 Active 2023 15307 47333 1 Once daily By Mouth False Miralax 17 gram/dose oral powder 17 gram By Mouth Once daily For Constipation 17 gram 2023 Active 2023 65108 83411 0 Once daily By Mouth False VITAL SIGNS Date Time Diastolic blood pressure Systolic blood pressure Body height Body weight Temperature SpO2 Blood Sugar Pulse Respirations 122 04460 0 68.00 mm[Hg] - Sitting 101.00 mm[Hg] - Sitting 72 NI 234.60 NI 98.20 Tympanic 98.00 % 85.00/ min 18.00/min 122 35997 6 70.00 mm[Hg] - Lying Down 110.00 mm[Hg] - Lying Down 97.80 Tympanic 84.00/ min 18.00/min 123 75277 1 74.00 mm[Hg] - Lying Down 116.00 mm[Hg] - Lying Down 97.40 Tympanic 74.00/ min 18.00/min
--- OUTSIDE RECORDS SUMMARY | 2024-07-30 07:20 | External Medical Summary | Continuity Of Care Document ---
Author Name Unknown Address [address] [address] Organization [facility] [place] () Care Team Providers Care Liquified Natural Gas Technician Name Role Phone DO Mallory Amy Primary Care Provider [phone] Medications Medication Instructions Dosage Start Date End Date Status Order Date Drug Code Frequency Route of Admin Diagnosis Code Substitutions Allowed Tubersol 5 tub. unit/0.1 mL intradermal injection solution [Tuberculin PPD] 0.1 mL Intradermal 1 time For PPD Step 1 GIVE on Day 1 and read results Day 3 0.1 mL 07/10 Active 2023 09434 20162 0 1 time Intrad ermal False Tubersol 5 tub. unit/0.1 mL intradermal injection solution [Tuberculin PPD] 0.1mL Intradermal 1 time For PPD 2nd Step Give 2nd Step PPD Day 1 and Read results Day 3 (schedule 7 days after 1st READ) 0.1mL 07/10 Active 2023 19507 55696 0 1 time Intrad ermal False Tylenol 325 mg tablet 2 tabs By Mouth Every 4 hours as needed For Pain DO NOT EXCEED 3000 MG APAP/24 Hours 2 tabs 2023 Active 2023 24526 62287 0 Every 4 hours as needed By Mouth False Tylenol 325 mg tablet 2 tabs By Mouth Every 4 hours as needed For Fever >100 DO NOT EXCEED 3000 MG APAP/24 Hours 2 tabs 2023 Active 2023 57434 27845 0 Every 4 hours as needed By Mouth False Dulcolax (bisacodyl) 10 mg rectal suppository One Suppository per rectum PRN if Milk of Magnisia ineffective. Give on day 5 of no BM 1 sup 2023 Active 2023 14520 49987 1 Daily as needed Rectal False Fleet Enema 19 gram-7 gram/118 mL Administer per rectum PRN one time if dulcolax suppository not effective. Give on day 6 of no BM 1 2023 Active 2023 45947 60887 6 Daily as needed Rectal False Milk of Magnesia 400 mg/5 mL oral suspension [Magnesium hydroxide] PRN 30ml By Mouth Daily as needed for constipation one time daily if no BM, on day 4 of no BM (PRN refer to instructions) For Constipation 30 mL 2023 Active 2023 75963 69272 6 Daily as needed By Mouth False Nitroglycer in 0.4 mg sublingual tablet [generic] PRN 0.4 mg Sublingual Every 5 minutes as needed Every 5 min PRN x 3 doses PRN chest pain and notify provider For Chest Pain 0.4 mg 2023 Active 2023 99364 08956 5 Every 5 minutes as needed Sublin gual False VITAL SIGNS Date Time Diastolic blood pressure Systolic blood pressure Body height Body weight Temperature SpO2 Blood Sugar Pulse Respirations 122 65269 0 68.00 mm[Hg] - Sitting 101.00 mm[Hg] - Sitting 72 NI 234.60 NI 98.20 Tympanic 98.00 % 85.00/ min 18.00/min
--- OUTSIDE RECORDS SUMMARY | 2024-07-30 07:20 | External Medical Summary | Continuity Of Care Document ---
Author Name Unknown Address [address] [address] Organization [facility] [place] () Care Team Providers Care Assistant Dean Of Students Name Role Phone DO Mallory Amy Primary Care Provider [phone] Allergies Allergy Reaction Start Date End Date [...] 3 0.1 mL 07/08 Inactiv e 2023 88859 73875 0 1 time Intrad ermal False Tubersol 5 tub. unit/0.1 mL intradermal injection solution [Tuberculin PPD] 0.1mL Intradermal 1 time For PPD 2nd Step Give 2nd Step PPD Day 1 and Read results Day 3 (schedule 7 days after 1st READ) 0.1mL 07/08 Inactiv e 2023 54028 41858 0 1 time Intrad ermal False Tubersol 5 tub. unit/0.1 mL intradermal injection solution [Tuberculin PPD] 0.1 mL Intradermal 1 time For PPD Step 1 GIVE on Day 1 and read results Day 3 0.1 mL 07/10 Active 2023 92833 95807 0 1 time Intrad ermal False Tubersol 5 tub. unit/0.1 mL intradermal injection solution [Tuberculin PPD] 0.1mL Intradermal 1 time For PPD 2nd Step Give 2nd Step PPD Day 1 and Read results Day 3 (schedule 7 days after 1st READ) 0.1mL 07/19 Active 2023 09558 09264 0 1 time Intrad ermal False Tylenol 325 mg tablet 2 tabs By Mouth Every 4 hours as needed For Pain DO NOT EXCEED 3000 MG APAP/24 Hours 2 tabs 2023 Active 2023 42559 72161 0 Every 4 hours as needed By Mouth False Tylenol 325 mg tablet 2 tabs By Mouth Every 4 hours as needed For Fever >100 DO NOT EXCEED 3000 MG APAP/24 Hours 2 tabs 2023 Active 2023 12668 06531 0 Every 4 hours as needed By Mouth False Dulcolax (bisacodyl) 10 mg rectal suppository One Suppository per rectum PRN if Milk of Magnisia ineffective. Give on day 5 of no BM 1 sup 2023 Active 2023 57414 16094 1 Daily as needed Rectal False Fleet Enema 19 gram-7 gram/118 mL Administer per rectum PRN one time if dulcolax suppository not effective. Give on day 6 of no BM 1 2023 Active 2023 22953 78036 6 Daily as needed Rectal False Milk of Magnesia 400 mg/5 mL oral suspension [Magnesium hydroxide] PRN 30ml By Mouth Daily as needed for constipation one time daily if no BM, on day 4 of no BM (PRN refer to instructions) For Constipation 30 mL 2023 Active 2023 83552 47237 6 Daily as needed By Mouth False Nitroglycer in 0.4 mg sublingual tablet [generic] PRN 0.4 mg Sublingual Every 5 minutes as needed Every 5 min PRN x 3 doses PRN chest pain and notify provider For Chest Pain 0.4 mg 2023 Active 2023 72146 89179 5 Every 5 minutes as needed Sublin gual False Aripiprazol e 5 mg tablet [generic] 1/2 Tab By Mouth Once daily For depression 1/2 Tab 2023 Active 2023 71146 15060 1 Once daily By Mouth False Escitalopra m 5 mg tablet [generic] 1 tablet By Mouth Once daily For depression 1 tablet 2023 Active 2023 74860 93940 1 Once daily By Mouth False Probiotic (B. coagulans) 1 billion cell chewable tablet 1 tablet By Mouth Once daily For supplement 1 tablet 2023 Active 2023 41441 05188 7 Once daily By Mouth False Memantine 10 mg tablet [generic] 1 tablet By Mouth Twice daily For alzheimers 1 tablet 2023 Active 2023 15865 49384 0 Twice daily By Mouth False Lidocaine 4 % topical patch [generic] 2 patches Topical - apply in the morning and remove at night For pain 2 patches 2023 Active 2023 66624 25686 0 Twice daily Topica l False Nystatin (bulk) 1 billion unit powder [generic] apply Topically twice daily to affected skin For fungal skin infection apply 2023 Active 2023 27539 03735 6 Twice daily Topica l False Nystatin (bulk) 1 billion unit powder [generic] apply Topical Twice daily For fungal skin breakdown apply 2023 Active 2023 15739 15267 6 Twice daily Topica l False Albuterol sulfate HFA 90 mcg/actuati on aerosol inhaler [generic] 2 puffs Inhalation Every 4 hours As Needed For COPD 2 puffs 2023 Active 2023 13922 79508 2 Every 4 hours Inhala tion False Ascorbic acid (vitamin C) 1,000 mg capsule [generic] 1 tablet By Mouth Once daily For supplement 1 tablet 2023 Active 2023 97139 97498 2 Once daily By Mouth False Epinephrine 0.1 mg/mL injection syringe [generic] 1 dose Intramuscular As Needed for For anaphylaxis 1 dose 2023 Active 2023 82873 19283 1 Intram uscula r False Magnesium 64 mg (magnesium chloride) tablet,opal yed release [generic] 1 tablet By Mouth Twice daily For supplement 1 tablet 2023 Active 2023 19491 42561 6 Twice daily By Mouth False Multivitami n tablet [generic] 1 tablet By Mouth Once daily For supplement 1 tablet 2023 Active 2023 83579 30945 4 Once daily By Mouth False Senna 8.6 mg tablet 1 tablet By Mouth Once daily For constipation 1 tablet 2023 Active 2023 62043 49509 1 Once daily By Mouth False Solifenacin 5 mg tablet [generic] 1 tablet By Mouth Once daily For pulmonary hypertension 1 tablet 2023 Active 2023 11124 16746 0 Once daily By Mouth False Aspirin 81 mg tablet,opal yed release [generic] 1 tablet By Mouth Once daily For DVT prevention 1 tablet 2023 Active 2023 80347 54677 9 Once daily By Mouth False Cholecalcif emily (vitamin D3) 1,250 mcg (50,000 unit) capsule [generic] 1 tablet By Mouth Once daily For supplement 1 tablet 2023 Active 2023 31532 77437 6 Once daily By Mouth False Cyanocobala min (vit B-12) 1,000 mcg tablet [generic] 1 tablet By Mouth Once daily For supplement 1 tablet 2023 Active 2023 47078 04994 5 Once daily By Mouth False Ferrous sulfate 325 mg (65 mg iron) tablet [generic] 1 tablet By Mouth Once daily For supplement 1 tablet 2023 Active 2023 28475 45202 5 Once daily By Mouth False Fludrocorti sone 0.1 mg tablet [generic] 1 tablet by mouth Once daily For adrenal insufficiency 1 tablet 2023 Active 2023 77591 32270 1 Once daily By Mouth False Omeprazole 20 mg capsule,del ayed release [generic] 1 tablet By Mouth Once daily before breakfast For GERD 1 tablet 2023 Active 2023 89483 83890 1 Once daily By Mouth False Trelegy Ellipta 100 mcg-62.5 mcg-25 mcg powder for inhalation 1 inhalation Inhalation Once daily For copd 1 inhalat ion 2023 Active 2023 86428 27608 0 Once daily Inhala tion False Hydrocortis one 20 mg tablet [generic] 1 tablet By Mouth Once daily For COPD 1 tablet 07/07 Inactiv e 2023 09087 32003 1 Once daily By Mouth False Hydrocortis one 10 mg tablet [generic] 1 tablet By Mouth Once daily in the afternoon - BE AWARE HYDROCORTISON E 20MG IN THE AM, 10MG in the afternoon For COPD 1 tablet 2023 Active 2023 89974 51485 1 Once daily By Mouth False Hydrocortis one 20 mg tablet [generic] 07/07 Inactiv e 2023 92311 35303 1 Hydrocortis one 20 mg tablet [generic] 1 tablet By Mouth Once daily For COPD - BE AWARE HYDROCORTISON E 20MG IN THE AM, 10MG in the afternoon 1 tablet 2023 Active 2023 98947 57901 1 Once daily By Mouth False VITAL SIGNS Date Time Diastolic blood pressure Systolic blood pressure Body height Body weight Temperature SpO2 Blood Sugar Pulse Respirations 122 24043 0 68.00 mm[Hg] - Sitting 101.00 mm[Hg] - Sitting 72 NI 234.60 NI 98.20 Tympanic 98.00 % 85.00/ min 18.00/min 122 79245 6 70.00 mm[Hg] - Lying Down 110.00 mm[Hg] - Lying Down 97.80 Tympanic 84.00/ min 18.00/min
--- OUTSIDE RECORDS SUMMARY | 2024-07-30 07:20 | External Medical Summary | Continuity Of Care Document ---
Author Name Unknown Address [address] [address] Organization [facility] () Care Team Providers Care Vegetable Cook Name Role Phone DO Mallory Amy Primary Care Provider [phone] Medications Medication Instructions Dosage Start Date End Date Status Order Date Drug Code Frequency Route of Admin Diagnosis Code Substitutions Allowed Tubersol 5 tub. unit/0.1 mL intradermal injection solution [Tuberculin PPD] 0.1 mL Intradermal 1 time For PPD Step 1 GIVE on Day 1 and read results Day 3 0.1 mL 07/10 Active 2023 61123 06779 0 1 time Intrad ermal False Tubersol 5 tub. unit/0.1 mL intradermal injection solution [Tuberculin PPD] 0.1mL Intradermal 1 time For PPD 2nd Step Give 2nd Step PPD Day 1 and Read results Day 3 (schedule 7 days after 1st READ) 0.1mL 07/10 Active 2023 05779 32029 0 1 time Intrad ermal False Tylenol 325 mg tablet 2 tabs By Mouth Every 4 hours as needed For Pain DO NOT EXCEED 3000 MG APAP/24 Hours 2 tabs 2023 Active 2023 98705 34630 0 Every 4 hours as needed By Mouth False Tylenol 325 mg tablet 2 tabs By Mouth Every 4 hours as needed For Fever >100 DO NOT EXCEED 3000 MG APAP/24 Hours 2 tabs 2023 Active 2023 90657 13632 0 Every 4 hours as needed By Mouth False Dulcolax (bisacodyl) 10 mg rectal suppository One Suppository per rectum PRN if Milk of Magnisia ineffective. Give on day 5 of no BM 1 sup 2023 Active 2023 23628 43129 1 Daily as needed Rectal False Fleet Enema 19 gram-7 gram/118 mL Administer per rectum PRN one time if dulcolax suppository not effective. Give on day 6 of no BM 1 2023 Active 2023 41291 50128 6 Daily as needed Rectal False Milk of Magnesia 400 mg/5 mL oral suspension [Magnesium hydroxide] PRN 30ml By Mouth Daily as needed for constipation one time daily if no BM, on day 4 of no BM (PRN refer to instructions) For Constipation 30 mL 2023 Active 2023 67919 47313 6 Daily as needed By Mouth False Nitroglycer in 0.4 mg sublingual tablet [generic] PRN 0.4 mg Sublingual Every 5 minutes as needed Every 5 min PRN x 3 doses PRN chest pain and notify provider 0.4 mg 2023 Active 2023 39479 92531 5 Every 5 minutes as needed Sublin gual False VITAL SIGNS Date Time Diastolic blood pressure Systolic blood pressure Body height Body weight Temperature SpO2 Blood Sugar Pulse Respirations 09138 122 37130 0 68.00 mm[Hg] - Sitting 101.00 mm[Hg] - Sitting 72 NI 234.60 NI 98.20 Tympanic 98.00 % 85.00/ min 18.00/min
--- OUTSIDE RECORDS SUMMARY | 2024-07-30 07:20 | External Medical Summary | Summary of Care ---
Author Name Unknown Organization [facility] [address] [facility] [address] Phone [phone] Care Team Providers Care Printing Technician Name Role Phone Chuy Batista MD Primary Care Provider [phone] Reason for Visit * Reason Onset Date Comments Advice 06/26/2024 Encounter Details Date Type Department Care Team (Late st Contact Info) Description 06/26/2024 Telephone Urology Miri Orozco [address] [address] Valdemar Prado MD [address] [place] [address] Advice Allergies Active Allergy Reactions Criticality Noted [...] morning. 90 Capsule 1 11/12/19 24 Active [facility] Wound/Burn Dressing External GelIndications: Pressure injury of [...] mRNA, LNP-s, No Pre serve, 2-Dose Series (Yovia) 05/30/2021,10/29/2020,10/08/2020 COVID-19, LNP-s, No Preserve , Prosper-sucrose, [...] No 12/27/2023 Does the household have a [facility] source of income? (Household - [...] Miscellaneous Notes * Telephone Encounter - Hanna Olivo LPN - 06/26/2024 2:19 PM EST There is an existing encounter in on this. * Telephone Encounter - Rach Fox OSA - 06/26/2024 1:58 PM EST Patient's called very upset. Patient was admitted to [facility] for UTI and Sylvia and is now [...] Arnol Ivey [address] [place] [id number] Xavi Gramajo MD [address] [place] [address] 08/28/2024 3:00 PM EST Office Visit [facility] [address] [id number] Chuy Batista MD [address] [place] [address] 09/04/2024 1:00 PM EST Procedure Only Urology, [place] [address] [place] [address] Ernesto Villareal MD [address] [place] [address] 09/14/2024 1:00 PM EST Cardiac Studies Cardiac Studies, [facility] [address] [place] [address] 10/13/2024 11:20 AM EST Office Visit Neurology [facility] [address] [facility] [place] [address] Ellie Duncan MD [address] [facility] [place] [address] Health Maintenance Due Date Last Done Comments Albumin/Creatinine Ratio 1963 DTap/Tdap Vaccines (1 - Tdap) 1964 Adult Wellness Visit 02/01/2020 01/31/2019 COVID-19 Vaccine ( season) 2024 07/22/2022, 07/22/2022, 02/11/2022, Additional history exists CKD PHOS USE SMARTSET 18597 09/11/202408/17, 09/11/2023, 07/14/2021, Additional history exists GFR 10/13/2024 04/12/2024, 10/15, 11/03/2023, Additional history exists Depression Screening 12/26/2024 12/27/2023 CKD HGB USE SMARTSET 09118 04/12/202504/12, 04/12/2024, 12/13/2023, Additional history exists Pneumococcal [...] Power of Attor philipp? No Care Teams Printing Technician Relationship Specialty Start Date End Date Chuy Batista MD [address] [place] [address] PCP - General Family Medicine 05/31/24 documented as of this encounter
--- OUTSIDE RECORDS SUMMARY | 2024-07-30 07:20 | External Medical Summary | Continuity Of Care Document ---
Author Name Unknown Address [address] [address] Organization [facility] () Care Team Providers Care Tinsmith Apprentice Name Role Phone DO Mallory Amy Primary Care Provider [phone] Medications Medication Instructions Dosage Start Date End Date Status Order Date Drug Code Frequency Route of Admin Diagnosis Code Substitutions Allowed Tubersol 5 tub. unit/0.1 mL intradermal injection solution [Tuberculin PPD] 0.1 mL Intradermal 1 time For PPD Step 1 GIVE on Day 1 and read results Day 3 0.1 mL 07/10 Active 2023 08962 70414 0 1 time Intrad ermal False Tubersol 5 tub. unit/0.1 mL intradermal injection solution [Tuberculin PPD] 0.1mL Intradermal 1 time For PPD 2nd Step Give 2nd Step PPD Day 1 and Read results Day 3 (schedule 7 days after 1st READ) 0.1mL 07/10 Active 2023 21259 21876 0 1 time Intrad ermal False Tylenol 325 mg tablet 2 tabs By Mouth Every 4 hours as needed For Pain DO NOT EXCEED 3000 MG APAP/24 Hours 2 tabs 2023 Active 2023 77061 49655 0 Every 4 hours as needed By Mouth False Tylenol 325 mg tablet 2 tabs By Mouth Every 4 hours as needed For Fever >100 DO NOT EXCEED 3000 MG APAP/24 Hours 2 tabs 2023 Active 2023 34417 89511 0 Every 4 hours as needed By Mouth False Dulcolax (bisacodyl) 10 mg rectal suppository One Suppository per rectum PRN if Milk of Magnisia ineffective. Give on day 5 of no BM 1 sup 2023 Active 2023 33984 72786 1 Daily as needed Rectal False Fleet Enema 19 gram-7 gram/118 mL Administer per rectum PRN one time if dulcolax suppository not effective. Give on day 6 of no BM 1 2023 Active 2023 67277 92660 6 Daily as needed Rectal False Milk of Magnesia 400 mg/5 mL oral suspension [Magnesium hydroxide] PRN 30ml By Mouth Daily as needed for constipation one time daily if no BM, on day 4 of no BM (PRN refer to instructions) For Constipation 30 mL 2023 Active 2023 76444 88479 6 Daily as needed By Mouth False Nitroglycer in 0.4 mg sublingual tablet [generic] PRN 0.4 mg Sublingual Every 5 minutes as needed Every 5 min PRN x 3 doses PRN chest pain and notify provider 0.4 mg 2023 Active 2023 70795 76606 5 Every 5 minutes as needed Sublin gual False VITAL SIGNS Date Time Diastolic blood pressure Systolic blood pressure Body height Body weight Temperature SpO2 Blood Sugar Pulse Respirations 76300 122 33663 0 68.00 mm[Hg] - Sitting 101.00 mm[Hg] - Sitting 72 NI 234.60 NI 98.20 Tympanic 98.00 % 85.00/ min 18.00/min
--- OUTSIDE RECORDS SUMMARY | 2024-07-30 07:20 | External Medical Summary | Continuity Of Care Document ---
Author Name Unknown Address [address] [address] Organization [facility] () Care Team Providers Care Operations Support Representative Name Role Phone DO Mallory Amy Primary Care Provider [phone] Medications Medication Instructions Dosage Start Date End Date Status Order Date Drug Code Frequency Route of Admin Diagnosis Code Substitutions Allowed Tubersol 5 tub. unit/0.1 mL intradermal injection solution [Tuberculin PPD] 0.1 mL Intradermal 1 time For PPD Step 1 GIVE on Day 1 and read results Day 3 0.1 mL 07/10 Active 2023 70203 48902 0 1 time Intrad ermal False Tubersol 5 tub. unit/0.1 mL intradermal injection solution [Tuberculin PPD] 0.1mL Intradermal 1 time For PPD 2nd Step Give 2nd Step PPD Day 1 and Read results Day 3 (schedule 7 days after 1st READ) 0.1mL 07/10 Active 2023 07689 96114 0 1 time Intrad ermal False Tylenol 325 mg tablet 2 tabs By Mouth Every 4 hours as needed For Pain DO NOT EXCEED 3000 MG APAP/24 Hours 2 tabs 2023 Active 2023 55209 88542 0 Every 4 hours as needed By Mouth False Tylenol 325 mg tablet 2 tabs By Mouth Every 4 hours as needed For Fever >100 DO NOT EXCEED 3000 MG APAP/24 Hours 2 tabs 2023 Active 2023 40191 49263 0 Every 4 hours as needed By Mouth False Dulcolax (bisacodyl) 10 mg rectal suppository One Suppository per rectum PRN if Milk of Magnisia ineffective. Give on day 5 of no BM 1 sup 2023 Active 2023 63461 25765 1 Daily as needed Rectal False Fleet Enema 19 gram-7 gram/118 mL Administer per rectum PRN one time if dulcolax suppository not effective. Give on day 6 of no BM 1 2023 Active 2023 91689 81740 6 Daily as needed Rectal False Milk of Magnesia 400 mg/5 mL oral suspension [Magnesium hydroxide] PRN 30ml By Mouth Daily as needed for constipation one time daily if no BM, on day 4 of no BM (PRN refer to instructions) For Constipation 30 mL 2023 Active 2023 43159 16864 6 Daily as needed By Mouth False Nitroglycer in 0.4 mg sublingual tablet [generic] PRN 0.4 mg Sublingual Every 5 minutes as needed Every 5 min PRN x 3 doses PRN chest pain and notify provider For Chest Pain 0.4 mg 2023 Active 2023 58025 09091 5 Every 5 minutes as needed Sublin gual False VITAL SIGNS Date Time Diastolic blood pressure Systolic blood pressure Body height Body weight Temperature SpO2 Blood Sugar Pulse Respirations 122 02432 0 68.00 mm[Hg] - Sitting 101.00 mm[Hg] - Sitting 72 NI 234.60 NI 98.20 Tympanic 98.00 % 85.00/ min 18.00/min
--- OUTSIDE RECORDS SUMMARY | 2024-07-30 07:20 | External Medical Summary | Continuity Of Care Document ---
Author Name Unknown Address [address] [address] Organization [facility] () Care Team Providers Care It Compliance Analyst Name Role Phone DO Mallory Amy Primary Care Provider [phone] Allergies Allergy Reaction Start Date End Date [...] Day 3 0.1 mL 07/10 Active 2023 08185 54777 0 1 time Intrad ermal False Tubersol 5 tub. unit/0.1 mL intradermal injection solution [Tuberculin PPD] 0.1mL Intradermal 1 time For PPD 2nd Step Give 2nd Step PPD Day 1 and Read results Day 3 (schedule 7 days after 1st READ) 0.1mL 07/10 Active 2023 17116 10966 0 1 time Intrad ermal False Tylenol 325 mg tablet 2 tabs By Mouth Every 4 hours as needed For Pain DO NOT EXCEED 3000 MG APAP/24 Hours 2 tabs 2023 Active 2023 47514 37835 0 Every 4 hours as needed By Mouth False Tylenol 325 mg tablet 2 tabs By Mouth Every 4 hours as needed For Fever >100 DO NOT EXCEED 3000 MG APAP/24 Hours 2 tabs 2023 Active 2023 20845 06834 0 Every 4 hours as needed By Mouth False Dulcolax (bisacodyl) 10 mg rectal suppository One Suppository per rectum PRN if Milk of Magnisia ineffective. Give on day 5 of no BM 1 sup 2023 Active 2023 99519 50157 1 Daily as needed Rectal False Fleet Enema 19 gram-7 gram/118 mL Administer per rectum PRN one time if dulcolax suppository not effective. Give on day 6 of no BM 1 2023 Active 2023 56805 62709 6 Daily as needed Rectal False Milk of Magnesia 400 mg/5 mL oral suspension [Magnesium hydroxide] PRN 30ml By Mouth Daily as needed for constipation one time daily if no BM, on day 4 of no BM (PRN refer to instructions) For Constipation 30 mL 2023 Active 2023 04169 53815 6 Daily as needed By Mouth False Nitroglycer in 0.4 mg sublingual tablet [generic] PRN 0.4 mg Sublingual Every 5 minutes as needed Every 5 min PRN x 3 doses PRN chest pain and notify provider For Chest Pain 0.4 mg 2023 Active 2023 55897 11630 5 Every 5 minutes as needed Sublin gual False Aripiprazol e 5 mg tablet [generic] 1/2 Tab By Mouth Once daily For depression 1/2 Tab 2023 Active 2023 91483 70493 1 Once daily By Mouth False Escitalopra m 5 mg tablet [generic] 1 tablet By Mouth Once daily For depression 1 tablet 2023 Active 2023 76000 38565 1 Once daily By Mouth False Probiotic (B. coagulans) 1 billion cell chewable tablet 1 tablet By Mouth Once daily For supplement 1 tablet 2023 Active 2023 00229 92490 7 Once daily By Mouth False Memantine 10 mg tablet [generic] 1 tablet By Mouth Twice daily For alzheimers 1 tablet 2023 Active 2023 42604 56187 0 Twice daily By Mouth False Lidocaine 4 % topical patch [generic] 2 patches Topical - apply in the morning and remove at night For pain 2 patches 2023 Active 2023 80232 31944 0 Twice daily Topica l False Nystatin (bulk) 1 billion unit powder [generic] apply Topically twice daily to affected skin For fungal skin infection apply 2023 Active 2023 35651 93634 6 Twice daily Topica l False Nystatin (bulk) 1 billion unit powder [generic] apply Topical Twice daily For fungal skin breakdown apply 2023 Active 2023 66100 16174 6 Twice daily Topica l False Albuterol sulfate HFA 90 mcg/actuati on aerosol inhaler [generic] 2 puffs Inhalation Every 4 hours As Needed For COPD 2 puffs 2023 Active 2023 90097 59244 2 Every 4 hours Inhala tion False Ascorbic acid (vitamin C) 1,000 mg capsule [generic] 1 tablet By Mouth Once daily For supplement 1 tablet 2023 Active 2023 10384 09819 2 Once daily By Mouth False Epinephrine 0.1 mg/mL injection syringe [generic] 1 dose Intramuscular As Needed for For anaphylaxis 1 dose 2023 Active 2023 06377 83620 1 Intram uscula r False Magnesium 64 mg (magnesium chloride) tablet,opal yed release [generic] 1 tablet By Mouth Twice daily For supplement 1 tablet 2023 Active 2023 79145 66609 6 Twice daily By Mouth False Multivitami n tablet [generic] 1 tablet By Mouth Once daily For supplement 1 tablet 2023 Active 2023 29397 61479 4 Once daily By Mouth False Senna 8.6 mg tablet 1 tablet By Mouth Once daily For constipation 1 tablet 2023 Active 2023 41822 97409 1 Once daily By Mouth False Solifenacin 5 mg tablet [generic] 1 tablet By Mouth Once daily For pulmonary hypertension 1 tablet 2023 Active 2023 63676 56070 0 Once daily By Mouth False Aspirin 81 mg tablet,opal yed release [generic] 1 tablet By Mouth Once daily For DVT prevention 1 tablet 2023 Active 2023 20086 67667 9 Once daily By Mouth False Cholecalcif emily (vitamin D3) 1,250 mcg (50,000 unit) capsule [generic] 1 tablet By Mouth Once daily For supplement 1 tablet 2023 Active 2023 40106 24718 6 Once daily By Mouth False Cyanocobala min (vit B-12) 1,000 mcg tablet [generic] 1 tablet By Mouth Once daily For supplement 1 tablet 2023 Active 2023 93910 71313 5 Once daily By Mouth False Ferrous sulfate 325 mg (65 mg iron) tablet [generic] 1 tablet By Mouth Once daily For supplement 1 tablet 2023 Active 2023 85018 81429 5 Once daily By Mouth False Fludrocorti sone 0.1 mg tablet [generic] 1 tablet by mouth Once daily For adrenal insufficiency 1 tablet 2023 Active 2023 85985 35748 1 Once daily By Mouth False Omeprazole 20 mg capsule,del ayed release [generic] 1 tablet By Mouth Once daily before breakfast For GERD 1 tablet 2023 Active 2023 15735 30830 1 Once daily By Mouth False Trelegy Ellipta 100 mcg-62.5 mcg-25 mcg powder for inhalation 1 inhalation Inhalation Once daily For copd 1 inhalat ion 2023 Active 2023 58338 44809 0 Once daily Inhala tion False Hydrocortis one 20 mg tablet [generic] 1 tablet By Mouth Once daily For COPD 1 tablet 07/07 Inactiv e 2023 53990 71224 1 Once daily By Mouth False Hydrocortis one 10 mg tablet [generic] 1 tablet By Mouth Once daily in the afternoon - BE AWARE HYDROCORTISON E 20MG IN THE AM, 10MG in the afternoon For COPD 1 tablet 2023 Active 2023 63495 96623 1 Once daily By Mouth False Hydrocortis one 20 mg tablet [generic] 07/07 Inactiv e 2023 84547 75227 1 Hydrocortis one 20 mg tablet [generic] 1 tablet By Mouth Once daily For COPD - BE AWARE HYDROCORTISON E 20MG IN THE AM, 10MG in the afternoon 1 tablet 2023 00/00 /0000 Active 202315 43359 1 Once daily By Mouth False VITAL SIGNS Date Time Diastolic blood pressure Systolic blood pressure Body height Body weight Temperature SpO2 Blood Sugar Pulse Respirations 122 47287 0 68.00 mm[Hg] - Sitting 101.00 mm[Hg] - Sitting 72 NI 234.60 NI 98.20 Tympanic 98.00 % 85.00/ min 18.00/min 122 70981 6 70.00 mm[Hg] - Lying Down 110.00 mm[Hg] - Lying Down 97.80 Tympanic 84.00/ min 18.00/min
--- OUTSIDE RECORDS SUMMARY | 2024-07-30 07:20 | External Medical Summary | Continuity Of Care Document ---
Author Name Unknown Address [address] [address] Organization [facility] () Care Team Providers Care Medical Representative Name Role Phone DO Mallory Amy Primary Care Provider [phone] Medications Medication Instructions Dosage Start Date End Date Status Order Date Drug Code Frequency Route of Admin Diagnosis Code Substitutions Allowed Tubersol 5 tub. unit/0.1 mL intradermal injection solution [Tuberculin PPD] 0.1 mL Intradermal 1 time For PPD Step 1 GIVE on Day 1 and read results Day 3 0.1 mL 07/10 Active 2023 20161 40217 0 1 time Intrad ermal False Tubersol 5 tub. unit/0.1 mL intradermal injection solution [Tuberculin PPD] 0.1mL Intradermal 1 time For PPD 2nd Step Give 2nd Step PPD Day 1 and Read results Day 3 (schedule 7 days after 1st READ) 0.1mL 07/10 Active 2023 38571 34408 0 1 time Intrad ermal False Tylenol 325 mg tablet 2 tabs By Mouth Every 4 hours as needed For Pain DO NOT EXCEED 3000 MG APAP/24 Hours 2 tabs 2023 Active 2023 36084 52660 0 Every 4 hours as needed By Mouth False Tylenol 325 mg tablet 2 tabs By Mouth Every 4 hours as needed For Fever >100 DO NOT EXCEED 3000 MG APAP/24 Hours 2 tabs 2023 Active 2023 42704 59998 0 Every 4 hours as needed By Mouth False Dulcolax (bisacodyl) 10 mg rectal suppository One Suppository per rectum PRN if Milk of Magnisia ineffective. Give on day 5 of no BM 1 sup 2023 Active 2023 15362 25976 1 Daily as needed Rectal False Fleet Enema 19 gram-7 gram/118 mL Administer per rectum PRN one time if dulcolax suppository not effective. Give on day 6 of no BM 1 2023 Active 2023 47449 80671 6 Daily as needed Rectal False Milk of Magnesia 400 mg/5 mL oral suspension [Magnesium hydroxide] PRN 30ml By Mouth Daily as needed for constipation one time daily if no BM, on day 4 of no BM (PRN refer to instructions) For Constipation 30 mL 2023 Active 2023 10099 32065 6 Daily as needed By Mouth False Nitroglycer in 0.4 mg sublingual tablet [generic] PRN 0.4 mg Sublingual Every 5 minutes as needed Every 5 min PRN x 3 doses PRN chest pain and notify provider For Chest Pain 0.4 mg 2023 Active 2023 46006 20121 5 Every 5 minutes as needed Sublin gual False VITAL SIGNS Date Time Diastolic blood pressure Systolic blood pressure Body height Body weight Temperature SpO2 Blood Sugar Pulse Respirations 122 74846 0 68.00 mm[Hg] - Sitting 101.00 mm[Hg] - Sitting 72 NI 234.60 NI 98.20 Tympanic 98.00 % 85.00/ min 18.00/min
--- OUTSIDE RECORDS SUMMARY | 2024-07-30 07:20 | External Medical Summary | Continuity Of Care Document ---
Author Name Unknown Address [address] [address] Organization [facility] [place] () Care Team Providers Care Transition Teacher Name Role Phone DO Mallory Amy Primary Care Provider [phone] Allergies Allergy Reaction Start Date End Date [...] 3 0.1 mL 07/08 Inactiv e 2023 13411 44655 0 1 time Intrad ermal False Tubersol 5 tub. unit/0.1 mL intradermal injection solution [Tuberculin PPD] 0.1mL Intradermal 1 time For PPD 2nd Step Give 2nd Step PPD Day 1 and Read results Day 3 (schedule 7 days after 1st READ) 0.1mL 07/08 Inactiv e 2023 07653 44974 0 1 time Intrad ermal False Tubersol 5 tub. unit/0.1 mL intradermal injection solution [Tuberculin PPD] 0.1 mL Intradermal 1 time For PPD Step 1 GIVE on Day 1 and read results Day 3 0.1 mL 07/10 Active 2023 13112 92094 0 1 time Intrad ermal False Tubersol 5 tub. unit/0.1 mL intradermal injection solution [Tuberculin PPD] 0.1mL Intradermal 1 time For PPD 2nd Step Give 2nd Step PPD Day 1 and Read results Day 3 (schedule 7 days after 1st READ) 0.1mL 07/19 Active 2023 61545 86764 0 1 time Intrad ermal False Tylenol 325 mg tablet 2 tabs By Mouth Every 4 hours as needed For Pain DO NOT EXCEED 3000 MG APAP/24 Hours 2 tabs 2023 Active 2023 51393 76525 0 Every 4 hours as needed By Mouth False Tylenol 325 mg tablet 2 tabs By Mouth Every 4 hours as needed For Fever >100 DO NOT EXCEED 3000 MG APAP/24 Hours 2 tabs 2023 Active 2023 81372 62615 0 Every 4 hours as needed By Mouth False Dulcolax (bisacodyl) 10 mg rectal suppository One Suppository per rectum PRN if Milk of Magnisia ineffective. Give on day 5 of no BM 1 sup 2023 Active 2023 66262 63513 1 Daily as needed Rectal False Fleet Enema 19 gram-7 gram/118 mL Administer per rectum PRN one time if dulcolax suppository not effective. Give on day 6 of no BM 1 2023 Active 2023 45019 15384 6 Daily as needed Rectal False Milk of Magnesia 400 mg/5 mL oral suspension [Magnesium hydroxide] PRN 30ml By Mouth Daily as needed for constipation one time daily if no BM, on day 4 of no BM (PRN refer to instructions) For Constipation 30 mL 2023 Active 2023 70984 00795 6 Daily as needed By Mouth False Nitroglycer in 0.4 mg sublingual tablet [generic] PRN 0.4 mg Sublingual Every 5 minutes as needed Every 5 min PRN x 3 doses PRN chest pain and notify provider For Chest Pain 0.4 mg 2023 Active 2023 04112 85701 5 Every 5 minutes as needed Sublin gual False Aripiprazol e 5 mg tablet [generic] 1/2 Tab By Mouth Once daily For depression 1/2 Tab 2023 Active 2023 25541 29696 1 Once daily By Mouth False Escitalopra m 5 mg tablet [generic] 1 tablet By Mouth Once daily For depression 1 tablet 2023 Active 2023 98659 80553 1 Once daily By Mouth False Probiotic (B. coagulans) 1 billion cell chewable tablet 1 tablet By Mouth Once daily For supplement 1 tablet 2023 Active 2023 51979 65363 7 Once daily By Mouth False Memantine 10 mg tablet [generic] 1 tablet By Mouth Twice daily For alzheimers 1 tablet 2023 Active 2023 02172 85234 0 Twice daily By Mouth False Lidocaine 4 % topical patch [generic] 2 patches Topical - apply in the morning and remove at night For pain 2 patches 2023 Active 2023 55974 86561 0 Twice daily Topica l False Nystatin (bulk) 1 billion unit powder [generic] apply Topically twice daily to affected skin For fungal skin infection apply 2023 Active 2023 60035 23701 6 Twice daily Topica l False Nystatin (bulk) 1 billion unit powder [generic] apply Topical Twice daily For fungal skin breakdown apply 2023 Active 2023 49287 40527 6 Twice daily Topica l False Albuterol sulfate HFA 90 mcg/actuati on aerosol inhaler [generic] 2 puffs Inhalation Every 4 hours As Needed For COPD 2 puffs 2023 Active 2023 29391 96601 2 Every 4 hours Inhala tion False Ascorbic acid (vitamin C) 1,000 mg capsule [generic] 1 tablet By Mouth Once daily For supplement 1 tablet 2023 Active 2023 86729 57819 2 Once daily By Mouth False Epinephrine 0.1 mg/mL injection syringe [generic] 1 dose Intramuscular As Needed for For anaphylaxis 1 dose 2023 Active 2023 21861 40239 1 Intram uscula r False Magnesium 64 mg (magnesium chloride) tablet,opal yed release [generic] 1 tablet By Mouth Twice daily For supplement 1 tablet 2023 Active 2023 31608 38678 6 Twice daily By Mouth False Multivitami n tablet [generic] 1 tablet By Mouth Once daily For supplement 1 tablet 2023 Active 2023 51034 23716 4 Once daily By Mouth False Senna 8.6 mg tablet 1 tablet By Mouth Once daily For constipation 1 tablet 2023 Active 2023 68040 58637 1 Once daily By Mouth False Solifenacin 5 mg tablet [generic] 1 tablet By Mouth Once daily For pulmonary hypertension 1 tablet 2023 Active 2023 61663 50679 0 Once daily By Mouth False Aspirin 81 mg tablet,opal yed release [generic] 1 tablet By Mouth Once daily For DVT prevention 1 tablet 2023 Active 2023 54907 35321 9 Once daily By Mouth False Cholecalcif emily (vitamin D3) 1,250 mcg (50,000 unit) capsule [generic] 1 tablet By Mouth Once daily For supplement 1 tablet 2023 Active 2023 77151 95737 6 Once daily By Mouth False Cyanocobala min (vit B-12) 1,000 mcg tablet [generic] 1 tablet By Mouth Once daily For supplement 1 tablet 2023 Active 2023 59787 67880 5 Once daily By Mouth False Ferrous sulfate 325 mg (65 mg iron) tablet [generic] 1 tablet By Mouth Once daily For supplement 1 tablet 2023 Active 2023 62167 59925 5 Once daily By Mouth False Fludrocorti sone 0.1 mg tablet [generic] 1 tablet by mouth Once daily For adrenal insufficiency 1 tablet 2023 Active 2023 80635 64206 1 Once daily By Mouth False Omeprazole 20 mg capsule,del ayed release [generic] 1 tablet By Mouth Once daily before breakfast For GERD 1 tablet 2023 Active 2023 06285 52070 1 Once daily By Mouth False Trelegy Ellipta 100 mcg-62.5 mcg-25 mcg powder for inhalation 1 inhalation Inhalation Once daily For copd 1 inhalat ion 2023 Active 2023 53785 38248 0 Once daily Inhala tion False Hydrocortis one 20 mg tablet [generic] 1 tablet By Mouth Once daily For COPD 1 tablet 07/07 Inactiv e 2023 47451 40799 1 Once daily By Mouth False Hydrocortis one 10 mg tablet [generic] 1 tablet By Mouth Once daily in the afternoon - BE AWARE HYDROCORTISON E 20MG IN THE AM, 10MG in the afternoon For COPD 1 tablet 2023 Active 2023 72346 80427 1 Once daily By Mouth False Hydrocortis one 20 mg tablet [generic] 07/07 Inactiv e 2023 58869 26956 1 Hydrocortis one 20 mg tablet [generic] 1 tablet By Mouth Once daily For COPD - BE AWARE HYDROCORTISON E 20MG IN THE AM, 10MG in the afternoon 1 tablet 2023 Active 2023 75047 70714 1 Once daily By Mouth False VITAL SIGNS Date Time Diastolic blood pressure Systolic blood pressure Body height Body weight Temperature SpO2 Blood Sugar Pulse Respirations 122 06805 0 68.00 mm[Hg] - Sitting 101.00 mm[Hg] - Sitting 72 NI 234.60 NI 98.20 Tympanic 98.00 % 85.00/ min 18.00/min 122 39998 6 70.00 mm[Hg] - Lying Down 110.00 mm[Hg] - Lying Down 97.80 Tympanic 84.00/ min 18.00/min 29280 123 96226 1 74.00 mm[Hg] - Lying Down 116.00 mm[Hg] - Lying Down 97.40 Tympanic 74.00/ min 18.00/min
--- OUTSIDE RECORDS SUMMARY | 2024-07-30 07:20 | External Medical Summary | Summary of Care ---
Author Name Unknown Organization [facility] Address [address] [place] [facility] [place] [address] Phone [phone] Care Team Providers Care Single Needle Tufting Machine Operator Name Role Phone Chuy Batista MD Primary Care Provider [phone] Reason for Visit * Reason Onset Date Comments Advice 06/21/2024 Encounter Details Date Type Department Care Team (Late st Contact Info) Description 06/21/2024 Telephone Urology Miri Orozco [address] [address] Valdemar Prado MD [address] [place] [address] Advice Allergies Active Allergy Reactions Criticality Noted Date Comments Chocolate Diarrhea 05/14/2023 Chocolate Flavor High 10/09/2023 Other Reaction(s): DIARRHEA/ Cannot take, interacts w/ medications. Clindamycin Hcl 09/24/2005 rash Cranberry 10/20/2023 Iodinated Contrast Media 10/01/2015 Ioversol Other (Please comment) High 08/10/[address] IV DYE Pembrolizumab High 10/10/2023 Other Reaction(s): myocarditis documented as of this encounter (statuses as of 06/28/2024) Medications Syringe/Needle , Disp, 25G X 1-1/2" [...] the morning. 90 Capsule 1 024 Active [facility] Wound/Burn Dressing External GelIndications :Pressure [...] as of this encounter (statuses as of 06/28/2024) Active Problems Problem Noted Date Diagnosed Date [...] as of this encounter (statuses as of 06/28/2024) Resolved Problems Problem Noted Date Diagnosed Date [...] as of this encounter (statuses as of 06/28/2024) Immunizations Name Administration Dates Next Due COVID-19 mRNA, LNP-s, No Pre serve, 2-Dose Series ([employer]) 05/30/2021,10/29/2020,10/08/2020 COVID-19, LNP-s, No Preserve , [...] No 12/27/2023 Does the household have a [facility] source of income? (Household - for ages [...] Telephone Encounter - Hanna Olivo LPN - 06/28/2024 1:20 PM EST Spoke with pt's , relayed below. She will contact office when he is discharged to schedule follow up. Thank you Yolie * Telephone Encounter - Valdemar Prado MD [...] issues. I do not see patients at [facility] and therefore can not be acutely involved in his care at that location. We will follow-up as outpatient as scheduled. Thanks, GALEN * Telephone Encounter - Hanna Olivo LPN - 06/26/2024 1:[address] Prado All [facility] records printed and on your desk for review. Patient is admitted at [facility] currently. Pleaseadvise if you have any recommendations outside of current treatment plan. Thank you Yolie * Telephone Encounter - Shara Sanders OSA - 06/26/2024 1:39 PM EST Pt calling in stating pt ended up at [facility] again, so had to cancel appt [...] to get involved in pt's case at [facility]? His hospital physician is Dr. Mckinney. is really concerned and would like to know if Dr. Prado can call her back to discuss. * Telephone Encounter - Valdemar Prado MD - 06/21/2024 3:20 PM EST Noted. Can provide / scan results when available. Has f/u appointment in near future, keep visit. Thx, HM * Telephone Encounter - Kate Chakraborty LPN [...] 07/25/2024 2:45 PM EST Office Visit Hematology/Oncology [facility] [address] [facility] [place] [id number] Xavi Gramajo MD [address] [facility] [place] [address] 08/28/2024 3:00 PM EST Office Visit [facility] [address] [place] [address] Chuy Batista MD [address] [place] [address] 09/04/2024 1:00 PM EST Procedure Only Urology, [place] [address] [place] [address] Ernesto Villareal MD [address] [place] [address] 09/14/2024 1:00 PM EST Cardiac Studies Cardiac Studies, [facility] [address] [place] [address] 10/13/2024 11:20 AM EST Office Visit Neurology [facility] [address] [facility] [place] [address] Ellie Duncan MD [address] [facility] [place] [address] Health Maintenance Due Date Last Done Comments Albumin/Creatinine Ratio 1963 DTap/Tdap Vaccines (1 - Tdap) 1964 Adult Wellness Visit 02/01/2020 01/31/2019 COVID-19 Vaccine ( season) 2024 07/22/2022, 07/22/2022, 02/11/2022, Additional history exists CKD PHOS USE SMARTSET 92850 09/11/202408/174, 09/11/2023, 07/14/2021, Additional history exists GFR 10/13/2024 04/12/2024, 10/15, 11/03/2023, Additional history exists Depression Screening 12/26/2024 12/27/2023 CKD HGB USE SMARTSET 43002 04/12/202504/12, 04/12/2024, 12/13/2023, Additional history exists Pneumococcal [...] Power of Attor philipp? No Care Teams Single Needle Tufting Machine Operator Relationship Specialty Start Date End Date Chuy Batista MD [address] [place] [address] PCP - General Family Medicine 05/31/24 documented as of this encounter
--- OUTSIDE RECORDS SUMMARY | 2024-07-30 07:20 | External Medical Summary | Continuity Of Care Document ---
Author Name Unknown Address [address] [address] Organization [facility] [place] () Care Team Providers Care Raw Material Planner Name Role Phone DO Mallory Amy Primary Care Provider [phone] Allergies Allergy Reaction Start Date End Date [...] 3 0.1 mL 07/08 Inactiv e 2023 12810 74835 0 1 time Intrad ermal False Tubersol 5 tub. unit/0.1 mL intradermal injection solution [Tuberculin PPD] 0.1mL Intradermal 1 time For PPD 2nd Step Give 2nd Step PPD Day 1 and Read results Day 3 (schedule 7 days after 1st READ) 0.1mL 07/08 Inactiv e 2023 33803 23523 0 1 time Intrad ermal False Tubersol 5 tub. unit/0.1 mL intradermal injection solution [Tuberculin PPD] 0.1 mL Intradermal 1 time For PPD Step 1 GIVE on Day 1 and read results Day 3 0.1 mL 07/11 Active 2023 73018 18240 0 1 time Intrad ermal False Tubersol 5 tub. unit/0.1 mL intradermal injection solution [Tuberculin PPD] 0.1mL Intradermal 1 time For PPD 2nd Step Give 2nd Step PPD Day 1 and Read results Day 3 (schedule 7 days after 1st READ) 0.1mL 07/11 Active 2023 68415 85702 0 1 time Intrad ermal False Tylenol 325 mg tablet 2 tabs By Mouth Every 4 hours as needed For Pain DO NOT EXCEED 3000 MG APAP/24 Hours 2 tabs 2023 Active 2023 48772 06516 0 Every 4 hours as needed By Mouth False Tylenol 325 mg tablet 2 tabs By Mouth Every 4 hours as needed For Fever >100 DO NOT EXCEED 3000 MG APAP/24 Hours 2 tabs 2023 Active 2023 36259 93730 0 Every 4 hours as needed By Mouth False Dulcolax (bisacodyl) 10 mg rectal suppository One Suppository per rectum PRN if Milk of Magnisia ineffective. Give on day 5 of no BM 1 sup 2023 Active 2023 63512 46408 1 Daily as needed Rectal False Fleet Enema 19 gram-7 gram/118 mL Administer per rectum PRN one time if dulcolax suppository not effective. Give on day 6 of no BM 1 2023 Active 2023 13214 74315 6 Daily as needed Rectal False Milk of Magnesia 400 mg/5 mL oral suspension [Magnesium hydroxide] PRN 30ml By Mouth Daily as needed for constipation one time daily if no BM, on day 4 of no BM (PRN refer to instructions) For Constipation 30 mL 2023 Active 2023 74374 88860 6 Daily as needed By Mouth False Nitroglycer in 0.4 mg sublingual tablet [generic] PRN 0.4 mg Sublingual Every 5 minutes as needed Every 5 min PRN x 3 doses PRN chest pain and notify provider For Chest Pain 0.4 mg 2023 Active 2023 87865 12312 5 Every 5 minutes as needed Sublin gual False Aripiprazol e 5 mg tablet [generic] 1/2 Tab By Mouth Once daily For depression 1/2 Tab 2023 Active 2023 09284 50022 1 Once daily By Mouth False Escitalopra m 5 mg tablet [generic] 1 tablet By Mouth Once daily For depression 1 tablet 2023 Active 2023 70640 46412 1 Once daily By Mouth False Probiotic (B. coagulans) 1 billion cell chewable tablet 1 tablet By Mouth Once daily For supplement 1 tablet 2023 Active 2023 67030 68899 7 Once daily By Mouth False Memantine 10 mg tablet [generic] 1 tablet By Mouth Twice daily For alzheimers 1 tablet 2023 Active 2023 10100 22455 0 Twice daily By Mouth False Lidocaine 4 % topical patch [generic] 2 patches Topical - apply in the morning and remove at night For pain 2 patches 2023 Active 2023 32259 94782 0 Twice daily Topica l False Nystatin (bulk) 1 billion unit powder [generic] apply Topically twice daily to affected skin For fungal skin infection apply 2023 Active 2023 22493 74831 6 Twice daily Topica l False Nystatin (bulk) 1 billion unit powder [generic] apply Topical Twice daily For fungal skin breakdown apply 2023 Active 2023 43170 94033 6 Twice daily Topica l False Albuterol sulfate HFA 90 mcg/actuati on aerosol inhaler [generic] 2 puffs Inhalation Every 4 hours As Needed For COPD 2 puffs 2023 Active 2023 95050 20330 2 Every 4 hours Inhala tion False Ascorbic acid (vitamin C) 1,000 mg capsule [generic] 1 tablet By Mouth Once daily For supplement 1 tablet 2023 Active 2023 70244 67532 2 Once daily By Mouth False Epinephrine 0.1 mg/mL injection syringe [generic] 1 dose Intramuscular As Needed for For anaphylaxis 1 dose 2023 Active 2023 87997 88873 1 Intram uscula r False Magnesium 64 mg (magnesium chloride) tablet,opal yed release [generic] 1 tablet By Mouth Twice daily For supplement 1 tablet 2023 Active 2023 50645 29381 6 Twice daily By Mouth False Multivitami n tablet [generic] 1 tablet By Mouth Once daily For supplement 1 tablet 2023 Active 2023 59452 29872 4 Once daily By Mouth False Senna 8.6 mg tablet 1 tablet By Mouth Once daily For constipation 1 tablet 2023 Active 2023 23065 73249 1 Once daily By Mouth False Solifenacin 5 mg tablet [generic] 1 tablet By Mouth Once daily For pulmonary hypertension 1 tablet 2023 Active 2023 71183 15559 0 Once daily By Mouth False Aspirin 81 mg tablet,opal yed release [generic] 1 tablet By Mouth Once daily For DVT prevention 1 tablet 2023 Active 2023 04028 27109 9 Once daily By Mouth False Cholecalcif emily (vitamin D3) 1,250 mcg (50,000 unit) capsule [generic] 1 tablet By Mouth Once daily For supplement 1 tablet 2023 Active 2023 89679 91027 6 Once daily By Mouth False Cyanocobala min (vit B-12) 1,000 mcg tablet [generic] 1 tablet By Mouth Once daily For supplement 1 tablet 2023 Active 2023 81155 99686 5 Once daily By Mouth False Ferrous sulfate 325 mg (65 mg iron) tablet [generic] 1 tablet By Mouth Once daily For supplement 1 tablet 2023 Active 2023 83281 55539 5 Once daily By Mouth False Fludrocorti sone 0.1 mg tablet [generic] 1 tablet by mouth Once daily For adrenal insufficiency 1 tablet 2023 Active 2023 80989 64295 1 Once daily By Mouth False Omeprazole 20 mg capsule,del ayed release [generic] 1 tablet By Mouth Once daily before breakfast For GERD 1 tablet 2023 Active 2023 15317 89990 1 Once daily By Mouth False Trelegy Ellipta 100 mcg-62.5 mcg-25 mcg powder for inhalation 1 inhalation Inhalation Once daily For copd 1 inhalat ion 2023 Active 2023 50595 85369 0 Once daily Inhala tion False Hydrocortis one 20 mg tablet [generic] 1 tablet By Mouth Once daily For COPD 1 tablet 07/07 Inactiv e 2023 14067 85993 1 Once daily By Mouth False Hydrocortis one 10 mg tablet [generic] 1 tablet By Mouth Once daily in the afternoon - BE AWARE HYDROCORTISON E 20MG IN THE AM, 10MG in the afternoon For COPD 1 tablet 2023 Active 2023 95851 80597 1 Once daily By Mouth False Hydrocortis one 20 mg tablet [generic] 07/07 Inactiv e 2023 30001 92135 1 Hydrocortis one 20 mg tablet [generic] 1 tablet By Mouth Once daily For COPD - BE AWARE HYDROCORTISON E 20MG IN THE AM, 10MG in the afternoon 1 tablet 2023 Active 2023 99634 02501 1 Once daily By Mouth False VITAL SIGNS Date Time Diastolic blood pressure Systolic blood pressure Body height Body weight Temperature SpO2 Blood Sugar Pulse Respirations 122 02012 0 68.00 mm[Hg] - Sitting 101.00 mm[Hg] - Sitting 72 NI 234.60 NI 98.20 Tympanic 98.00 % 85.00/ min 18.00/min 122 70307 6 70.00 mm[Hg] - Lying Down 110.00 mm[Hg] - Lying Down 97.80 Tympanic 84.00/ min 18.00/min
--- OUTSIDE RECORDS SUMMARY | 2024-07-30 07:21 | External Medical Summary | Summary of Care ---
Author Name Unknown Organization [facility] Address [address] [facility] [address] Phone [phone] Care Team Providers Care Podiatric Medicine Professor Name Role Phone Chuy Batista MD Primary Care Provider [phone] Reason for Visit * Reason Onset Date Comments Advice 06/21/2024 Encounter Details Date Type Department Care Team (Late st Contact Info) Description 06/21/2024 Telephone Urology Miri Orozco [address] [place] [address] Valdemar Prado MD [address] [place] [address] Advice Allergies Active Allergy Reactions Criticality Noted [...] the morning. 90 Capsule 1 024 Active [facility] Wound/Burn Dressing External GelIndications :Pressure injury [...] mRNA, LNP-s, No Pre serve, 2-Dose Series ([employer]) 05/30/2021,10/29/2020,10/08/2020 COVID-19, LNP-s, No Preserve , Prosper-sucrose, [...] No 12/27/2023 Does the household have a [facility] source of income? (Household - [...] Miscellaneous Notes * Telephone Encounter - Shara Sanders OSA [...] 06/27/2024 10:00 AM EST Office Visit Urology, [facility] [address] [place] [address] Valdemar Prado MD [address] [facility] [place] [address] 07/25/2024 2:45 PM EST Office Visit Hematology/Oncology [facility] [address] [facility] [place] [address] Xavi Gramajo MD [address] [facility] [place] [address] 08/28/2024 3:00 PM EST Office Visit [facility] [address] [place] [address] Chuy Batista MD [address] [place] [address] 09/04/2024 1:00 PM EST Procedure Only Urology, [place] [address] [place] [address] Ernesto Villareal MD [address], [place] [id number] 09/14/2024 1:00 PM EST Cardiac Studies Cardiac Studies, [facility] [address] [place] [address] 10/13/2024 11:20 AM EST Office Visit Neurology [facility] [place] [address] [facility] [place] [address] Ellie Duncan MD [address] [facility] [place] [address] Health Maintenance Due Date Last Done Comments Albumin/Creatinine Ratio 1963 DTap/Tdap Vaccines (1 - Tdap) 1964 Adult Wellness Visit 02/01/2020 01/31/2019 COVID-19 Vaccine ( season) 2024 07/22/2022, 07/22/2022, 02/11/2022, Additional history exists CKD PHOS USE SMARTSET 37664 09/11/202408/17, 09/11/2023, 07/14/2021, Additional history exists GFR 10/13/2024 04/12/2024, 10/15, 11/03/2023, Additional history exists Depression Screening 12/26/2024 12/27/2023 CKD HGB USE SMARTSET 36711 04/12/202504/12, 04/12/2024, 12/13/2023, Additional history exists Pneumococcal [...] Power of Attor philipp? No Care Teams Podiatric Medicine Professor Relationship Specialty Start Date End Date Chuy Batista MD [address] [place] [address] PCP - General Family Medicine 05/31/24 documented as of this encounter
--- OUTSIDE RECORDS SUMMARY | 2024-07-30 07:21 | External Medical Summary | Summary of Care ---
Author Name Unknown Organization [facility] Address [address] [facility] [address] Phone [phone] Care Team Providers Care Asparagus Buncher Name Role Phone Chuy Batista MD Primary Care Provider +1- [phone] Reason for Visit * Reason Onset Date Comments Advice 06/26/2024 Encounter Details Date Type Department Care Team (Late st Contact Info) Description 06/26/2024 Telephone Urology Miri Orozco [address] [address] [place] [address] Valdemar Prado MD [address] [place] [address] Advice Allergies Active Allergy Reactions Criticality Noted [...] morning. 90 Capsule 1 11/12/19 24 Active [facility] Wound/Burn Dressing External GelIndications: Pressure injury [...] mRNA, LNP-s, No Pre serve, 2-Dose Series ([employer]) 05/30/2021,10/29/2020,10/08/2020 COVID-19, LNP-s, No Preserve , [...] No 12/27/2023 Does the household have a [employer] [place] source of income? (Household - for ages [...] called very upset. Patient was admitted to [facility] for UTI and Sylvia and is now [...] Arnol Ivey [address] [place] [address] [place] [id number] Xavi Gramajo MD [address] [place] [address] 08/28/2024 3:00 PM EST Office Visit [facility] [address] [id number] Chuy Batista MD [address] [place] [address] 09/04/2024 1:00 PM EST Procedure Only Urology, [place] [address] [place] [address] Ernesto Villareal MD [address] [place] [address] 09/14/2024 1:00 PM EST Cardiac Studies Cardiac Studies, [facility] [address] [place] [address] 10/13/2024 11:20 AM EST Office Visit Neurology [facility] [address] [facility] [place] [address] Ellie Duncan MD [address] [facility] [place] [address] Health Maintenance Due Date Last Done Comments Albumin/Creatinine Ratio 1963 DTap/Tdap Vaccines (1 - Tdap) 1964 Adult Wellness Visit 02/01/2020 01/31/2019 COVID-19 Vaccine ( season) 2024 07/22/2022, 07/22/2022, 02/11/2022, Additional history exists CKD PHOS USE SMARTSET 71592 09/11/202408/17, 09/11/2023, 07/14/2021, Additional history exists GFR 10/13/2024 04/12/2024, 10/15, 11/03/2023, Additional history exists Depression Screening 12/26/2024 12/27/2023 CKD HGB USE SMARTSET 53800 04/12/202504/12, 04/12/2024, 12/13/2023, Additional history exists Pneumococcal [...] Power of Attor philipp? No Care Teams Asparagus Buncher Relationship Specialty Start Date End Date Chuy Batista MD [address] [place] [address] PCP - General Family Medicine 05/31/24 documented as of this encounter
--- OUTSIDE RECORDS SUMMARY | 2024-07-30 07:21 | External Medical Summary | Summary of Care ---
Author Name Unknown Organization [facility] Address [address] [facility] [address] Phone [phone] Care Team Providers Care Acid Tank Cleaner Name Role Phone Chuy Batista MD Primary Care Provider +1- [phone] Reason for Visit * Reason Onset Date Comments Advice 06/21/2024 Encounter Details Date Type Department Care Team (Late st Contact Info) Description 06/21/2024 Telephone Urology Miri Orozco [address] [address] [address] Valdemar Prado MD [address] [place] [address] Advice Allergies Active Allergy Reactions Criticality Noted [...] the morning. 90 Capsule 1 024 Active [facility] Wound/Burn Dressing External GelIndications :Pressure injury of [...] mRNA, LNP-s, No Pre serve, 2-Dose Series ([employer]) 05/30/2021,10/29/2020,10/08/2020 COVID-19, LNP-s, No Preserve , Prosper-sucrose, [...] No 12/27/2023 Does the household have a [facility] source of income? (Household - for ages [...] 06/26/2024 1:[address] Prado All [facility] records printed and on your desk for review. Patient is admitted at [facility] currently. Pleaseadvise if you have any recommendations outside of current treatment plan. Thank you Yolie * Telephone Encounter - Shara Sanders OSA - 06/26/2024 1:39 PM EST Pt calling in stating pt ended up at [facility] again, so had to cancel appt [...] to get involved in pt's case at [facility]? His hospital physician is Dr. Mckinney. [...] patient for 2/5 weeks than transferred to [facility]. She states center care ran a [...] 2:45 PM EST Office Visit Hematology/Oncology [facility] [place] [address] [facility] [place] [address] Xavi Gramajo MD [address] [facility] [place] [address] 08/28/2024 3:00 PM EST Office Visit [facility] [address] [place] [address] Chuy Batista MD [address] [place] [address] 09/04/2024 1:00 PM EST Procedure Only Urology, [place] [address] [facility] [address] Ernesto Villareal MD [address] [facility] [place] [address] 09/14/2024 1:00 PM EST Cardiac Studies Cardiac Studies, [facility] [address] [place] [address] 10/13/2024 11:20 AM EST Office Visit Neurology [facility] [address] [facility] [place] [address] Ellie Duncan MD [address] [facility] [place] [address] Health Maintenance Due Date Last Done Comments Albumin/Creatinine Ratio 1963 DTap/Tdap Vaccines (1 - Tdap) 1964 Adult Wellness Visit 02/01/2020 01/31/2019 COVID-19 Vaccine ( season) 2024 07/22/2022, 07/22/2022, 02/11/2022, Additional history exists CKD PHOS USE SMARTSET 79578 09/11/202408/17, 09/11/2023, 07/14/2021, Additional history exists GFR 10/13/2024 04/12/2024, 10/15, 11/03/2023, Additional history exists Depression Screening 12/26/2024 12/27/2023 CKD HGB USE SMARTSET 63742 04/12/202504/12, 04/12/2024, 12/13/2023, Additional history exists Pneumococcal [...] Power of Attor philipp? No Care Teams Acid Tank Cleaner Relationship Specialty Start Date End Date Chuy Batista MD [address] [place] [address] PCP - General Family Medicine 05/31/24 documented as of this encounter
[2024-07-30 07:27] LABS: Basophils # (auto) 0.02 K/uL (0.00-0.20); Basophils % (auto) 0.3 %; Eosinophils % (auto) 3.4 %; Hematocrit (blood only) 30.4 % (42.0-52.0); Hemoglobin 9.6 g/dl (14.0-18.0); Immature Granulocytes # (auto) 0.03 K/uL (0.01-0.20); Immature Granulocytes % (auto) 0.5 %; Lymphocytes # (auto) 1.82 K/uL (1.20-3.40); Lymphocytes % (auto) 30.5 %; Mean Corpuscular Hemoglobin 27.7 pg (25.0-34.0); Mean Corpuscular Hgb Conc 31.6 g/dL (32.0-36.0); Mean Corpuscular Volume 87.6 fL (80.0-100.0); Mean Platelet Volume 8.6 fL (9.4-12.4); Monocytes # (auto) 0.45 K/uL (0.11-0.59); Monocytes % (auto) 7.5 %; Neutrophils # (auto) 3.45 K/uL (1.40-6.50); Neutrophils % (auto) 57.8 %; Platelet Count 256 K/uL (130-400); RDW Coefficient of Variation 15.9 % (11.5-14.5); RDW Standard Deviation 49.8 fL (36.4-46.3); Red Blood Count 3.47 M/uL (4.70-6.10); White Blood Count 5.97 K/ul (4.8-10.8)
[2024-07-30 07:32] LABS: Albumin Level 2.8 gm/dl (3.4-5.0); BUN Creatinine Ratio 9.8 (10-20); Bilirubin,Total 0.5 mg/dl (0.2-1.0); Calcium 8.5 mg/dl (8.6-10.3); Creatinine Clr Calc Pharmacy 60.4 ml/min; Globulin 2.9 gm/dl (2.5-4.0); Phosphorus 3.7 mg/dl (2.5-4.9); Potassium 3.6 mmol/L (3.5-5.1); Total Protein 5.7 gm/dl (6.0-8.3)
--- NOTE | 2024-07-30 13:20 | Hospitalist Progress Note ---
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 Unwitnessed Fall Recurrent urinary tract infection, no sepsis for now CAUTI History of BPH/prostate cancer/history of bladder cancer status post surgery patient with chronic indwelling Devlin UA suggestive of infection, urine culture currently growing Klebsiella Continue with IV Zosyn at this time, adjust based on cultures. ID consult once more given frequent infections Fall likely in setting of acute infection PT OT eval Continue to monitor Painless hematuria Acute on chronic anemia hemoglobin of 9.5 stable Continue home iron B12 supplements If further decrease consider a.m. anemia panel Continue to monitor H&H Consider urology consult Failure to thrive Malnutrition patient's noting decreased p.o. intake Dietitian consulted, appreciate recs Chronic Medical Problems: Hypertension secondary to illness, currently not on maintenance medications due to history orthostatic hypotension valvular heart disease (moderate , mild AR) hypertension, stable at this time history PE DVT status post IVC filter placement hx Keytruda myocarditis/history of adrenal insufficiency on chronic steroid/fludrocortisone Rx Underlying pulmonary hypertension, hx bronchial asthma/COPD, ANDRZEJ (not currently using CPAP machine due to need for new orders as per PCP notes) Mild cognitive impairment, patient mentating well on regimen Functional disability/ambulatory dysfunction, PT/OT- will likely need acute rehab placement once more continue other home meds as ordered Diet: HH DVT prophylaxis: SCDs Re: Hematuria Full code Dispo: PT OT eval, possible placement if patient/ agreeable Admission and Anticipated Discharge Date Admission Date: July 28, 2024 Subjective patient was seen laying in bed States he had just woken up from a "good nap" states that his appetite for the past 3 days has been decreased Notes that he is feeling slightly better today call placed to Verna at about 6:20 PM and she was updated. Review of Systems Review of Systems: All systems reviewed & are unremarkable except as noted in Subjective Physical Exam Physical Exam: General: Alert, oriented. No acute distress Psych: Appropriate mood and affect Neuro: Difficulty with movements in the bed HEENT: NC/AT CV: RRR, +murmur Resp: Breath sounds clear bilaterally, no increased effort of breathing Abdomen: Soft, tender Extremities: No edema in lower extremities bilaterally. Results & Data Results & Data Vital Signs (Past 12 Hours) Vital Signs Temp Pulse Pulse Resp BP BP Pulse Ox 07/30/24 11:38 36.6 C 68 16 108/65 95 07/30/24 07:49 62 07/30/24 07:24 36.8 C 64 16 124/62 95 07/30/24 03:19 36.4 C L 58 L 16 124/72 95 O2 Del Method 07/30/24 11:38 Room Air 07/30/24 07:49 07/30/24 07:24 Room Air 07/30/24 03:19 Room Air (4) Stage 3 chronic kidney disease Chronic kidney disease stage 3 subtype: unspecified whether 3a or 3b Qualified Code(s): N18.30 - Chronic kidney disease, stage 3 unspecified
[2024-07-30] MEDS: ACETAMINOPHEN 325 MG TAB PO PRN (17:12)
[2024-07-30] MEDS: MELATONIN 3 MG TAB PO PRN (21:09)
--- NOTE | 2024-07-30 22:45 | Electrocardiogram Report ---
Test Reason : Blood Pressure : */* mmHG Vent. Rate : 81 BPM Atrial Rate : 81 BPM P-R Int : 132 ms QRS Dur : 82 ms QT Int : 378 ms P-R-T Axes : 19 37 42 degrees QTcB Int : 439 ms Normal sinus rhythm Nonspecific ST abnormality Abnormal ECG When compared with ECG of 23-Jun-2024 13:35, No significant change Confirmed by Massimo Reyes ([id number]) on 07/30/2024 10:44:46 PM Referred By: Confirmed By: Massimo Reyes
[2024-07-31 06:43] LABS: Basophils # (auto) 0.03 K/uL (0.00-0.20); Basophils % (auto) 0.4 %; Eosinophils # (auto) 0.17 K/uL (0.00-0.50); Eosinophils % (auto) 2.4 %; Hematocrit (blood only) 29.5 % (42.0-52.0); Hemoglobin 9.2 g/dl (14.0-18.0); Immature Granulocytes # (auto) 0.02 K/uL (0.01-0.20); Immature Granulocytes % (auto) 0.3 %; Lymphocytes % (auto) 28.2 %; Mean Corpuscular Hemoglobin 27.4 pg (25.0-34.0); Mean Corpuscular Hgb Conc 31.2 g/dL (32.0-36.0); Mean Corpuscular Volume 87.8 fL (80.0-100.0); Mean Platelet Volume 8.5 fL (9.4-12.4); Neutrophils # (auto) 4.38 K/uL (1.40-6.50); Neutrophils % (auto) 61.7 %; Platelet Count 266 K/uL (130-400); RDW Coefficient of Variation 15.7 % (11.5-14.5); RDW Standard Deviation 49.8 fL (36.4-46.3); Red Blood Count 3.36 M/uL (4.70-6.10)
[2024-07-31 07:11] LABS: Albumin Level 2.8 gm/dl (3.4-5.0); BUN Creatinine Ratio 10.3 (10-20); Bilirubin,Total 0.5 mg/dl (0.2-1.0); Calcium 8.4 mg/dl (8.6-10.3); Creatinine Clr Calc Pharmacy 58.6 ml/min; Globulin 2.8 gm/dl (2.5-4.0); Magnesium 1.9 mg/dl (1.7-2.4); Phosphorus 3.8 mg/dl (2.5-4.9); Potassium 3.3 mmol/L (3.5-5.1); Total Protein 5.6 gm/dl (6.0-8.3)
[2024-07-31] MEDS: POTASSIUM CHLORIDE CRTAB 20 MEQ TABCR PO STA (09:39)
--- NOTE | 2024-07-31 11:02 | Hospitalist Progress Note ---
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 Unwitnessed Fall Recurrent urinary tract infection, no sepsis for now CAUTI History of BPH/prostate cancer/history of bladder cancer status post surgery patient with chronic indwelling Devlin UA suggestive of infection, urine culture currently growing Klebsiella Continue with IV Zosyn at this time, adjust based on cultures. ID consult once more given frequent infections Fall likely in setting of acute infection PT OT eval Continue to monitor Painless hematuria Acute on chronic anemia hemoglobin of 9.5 stable Continue home iron, B12 supplements AM anemia panel Continue to monitor H&H Consider urology consult- requesting daily iron supplement Failure to thrive Malnutrition patient's noting decreased p.o. intake Dietitian consulted, appreciate recs Chronic Medical Problems: Hypertension secondary to illness, currently not on maintenance medications due to history orthostatic hypotension valvular heart disease (moderate , mild AR) hypertension, stable at this time history PE DVT status post IVC filter placement hx Keytruda myocarditis/history of adrenal insufficiency on chronic steroid/fludrocortisone Rx Underlying pulmonary hypertension, hx bronchial asthma/COPD, ANDRZEJ (not currently using CPAP machine due to need for new orders as per PCP notes) Mild cognitive impairment, patient mentating well on regimen Functional disability/ambulatory dysfunction, PT/OT- will likely need acute rehab placement once more continue other home meds as ordered Diet: HH DVT prophylaxis: SCDs Re: Hematuria Full code Dispo: PT OT eval, possible placement if patient/ agreeable Admission and Anticipated Discharge Date Admission Date: July 28, 2024 Subjective patient was seen laying in bed in the a.m. Anxious with discharge asking about going home versus going to SNF. Would like this provider to call his he notes States that his appetite has returned Discussion with patient's later in the evening, she notes she will be having a procedure done on and Wednesday but would like to take the patient home. Does not want him going to SNF unless its local. Concerned about his anemia and asking for an iron infusion. Discussed that patient currently on oral iron. Review of Systems Review of Systems: All systems reviewed & are unremarkable except as noted in Subjective Physical Exam Physical Exam: General: Alert, oriented. No acute distress Psych: Appropriate mood and affect Neuro: Difficulty with movements in the bed HEENT: NC/AT CV: RRR, +murmur Resp: Breath sounds clear bilaterally, no increased effort of breathing Abdomen: Soft, tender Extremities: R>L edema in lower extremities bilaterally. Results & Data Results & Data Vital Signs (Past 12 Hours) Vital Signs Temp Pulse Pulse Resp BP BP Pulse Ox 07/31/24 08:31 36.4 C L 65 117/71 97 07/31/24 07:48 63 07/31/24 03:01 36.6 C 59 L 14 101/62 97 O2 Del Method 07/31/24 08:31 Room Air 07/31/24 07:48 07/31/24 03:01 Room Air (4) Stage 3 chronic kidney disease Chronic kidney disease stage 3 subtype: unspecified whether 3a or 3b Qualified Code(s): N18.30 - Chronic kidney disease, stage 3 unspecified
--- NOTE | 2024-07-31 13:15 | Infectious Disease Consult ---
Date of Service July 31, 2024 Telehealth Information I performed this visit using a real-time telehealth connection between my location and the patients location ([facility]). After connecting through interactive tele-video, patient was identified by name and date of and/or wristband check.Patient (or authorized healthcare sales service representative) was informed that this was a telemedicine visit and it was being conducted confidentially over secure lines. My office door was closed and no one else was present in the room with me.Patient (or authorized healthcare sales service representative) provided consent to proceed with the visit, expressed an understanding of privacy and security of the telemedicine visit, and gave permission to have a hospital sales service representative in the room in order to assist with the visit and to conduct portions of the visit, as needed. I informed the patient (or authorized healthcare sales service representative) that I reviewed their record and presented the opportunity for them to ask any questions regarding the visit today. The patient agreed to participate. Assessment & Plan (1) Bacteriuria: Plan: The presence of bacteruria in patients with a chronic Devlin catheter is expected . The patient had back pain but this might be explained by his recent fall. As far as I can tell, there was no other sign/symptom that would suggest a UTI. I will need to discuss with the primary service about their suspicion for a UTI (vs bacteruria) before deciding to treat as a CAUTI. History of Present Illness History of Present Illness The patient was admitted for a fall (in the context of a chronic indwelling bladder catheter). Urine culture grew Bactrim-R but otherwise christopher-S KPN. The patient reports feeling OK. He initially complained of back pain, but this seems to be improving. He denies any other complaints. Allergies Allergy/AdvReac Type Severity Reaction Status Date / Time Iodinated Contrast Media Allergy Severe LOVERSOL---CARDIAC Verified 06/22/24 13:[address] CONTRAST clindamycin Allergy Intermediate Rash Verified 06/22/24 13:25 cranberry Allergy Verified 07/30/24 12:19 chocolate flavor AdvReac Severe DIARRHEA/ Verified 06/22/24 13:25 Cannot take, interacts w/ medications. pembrolizumab [From [employer]] AdvReac Intermediate myocarditis Verified 06/22/24 13:25 Home Medications Medication Instructions Recorded Confirmed Type acetaminophen 325 mg tablet 650 mg (2 x 325 mg) PO Q4H PRN 06/08/24 07/28/24 Rx fever or pain #30 tabs albuterol sulfate 90 mcg/actuation 2 puff inhalation Q4H PRN 06/08/24 07/28/24 Rx aerosol inhaler Shortness Of Breath Or Wheezing #16 grams ascorbic acid (vitamin C) 1,000 mg 1,000 mg PO DAILY #30 tabs 06/08/24 07/28/24 Rx tablet aspirin 81 mg tablet,delayed 81 mg PO DAILY #30 tabs 06/08/24 07/28/24 Rx release cholecalciferol (vitamin D3) 125 125 mcg PO DAILY #30 tabs 06/08/24 07/28/24 Rx mcg (5,000 unit) tablet (Vitamin D3) cyanocobalamin (vitamin B-12) 1,000 mcg PO DAILY #30 tabs 06/08/24 07/28/24 Rx 1,000 mcg tablet epinephrine 0.3 mg/0.3 mL 0.3 mg (0.3 mL) IM UD PRN 06/08/24 07/28/24 Rx injection, auto-injector Anaphylaxis #3 ea ferrous sulfate 325 mg (65 mg 325 mg PO DAILY #30 tabs 06/08/24 07/28/24 Rx iron) tablet,delayed release fludrocortisone 0.1 mg tablet 0.1 mg PO DAILY #30 tabs 06/08/24 07/28/24 Rx fluticasone fur. 200 mcg-umeclid 1 inh inhalation DAILY #1 ea 06/08/24 07/28/24 Rx 62.5 mcg-vilant 25 mcg inhalat.powder (Trelegy Ellipta) lidocaine 5 % topical patch 2 patch transdermal DAILY #20 ea 06/08/24 07/28/24 Rx magnesium chloride 64 mg 64 mg PO BID #60 tabs 06/08/24 07/28/24 Rx (magnesium chloride) tablet,delayed release memantine 10 mg tablet 10 mg PO BID #60 tabs 06/08/24 07/28/24 Rx multivitamin with minerals-folic 1 tab PO DAILY #30 tabs 06/08/24 07/28/24 Rx acid 200 mcg chewable tablet (Multivitamin Gummies) nystatin 100,000 unit/gram topical 1 applic EXT BID #30 grams 06/08/24 07/28/24 Rx powder (Nystop) omeprazole 20 mg capsule,delayed 20 mg PO DAILY #30 caps 06/08/24 07/28/24 Rx release solifenacin 5 mg tablet 5 mg PO DAILY #30 tabs 06/08/24 07/28/24 Rx L.acidop,casei,lactis,rham-B.lact,sienna 1 cap PO DAILY 30 days #30 caps 07/07/24 07/28/24 Rx 625 mg (10 billion cell) capsule (Advanced Probiotic) aripiprazole 5 mg tablet (Abilify) 2.5 mg (1/2 x 5 mg) PO QAM 30 days 07/07/24 07/28/24 Rx #15 tabs escitalopram oxalate 10 mg tablet 5 mg (1/2 x 10 mg) PO QAM 30 days 07/07/24 1 09/28/23 Rx #15 tabs hydrocortisone 10 mg tablet 10 mg PO 1500 #0 tabs 07/07/24 07/28/24 Rx (Cortef) hydrocortisone 10 mg tablet 20 mg (2 x 10 mg) PO QAM #0 tabs 07/07/24 07/28/24 Rx (Cortef) methocarbamol 500 mg tablet 500 mg PO DAILY 07/28/24 07/28/24 History mirabegron 25 mg tablet,extended 25 mg PO DAILY 07/28/24 07/28/24 History release 24 hr (Myrbetriq) sennosides 8.6 mg tablet (senna) 8.6 mg PO DAILY PRN Constipation 07/28/24 07/28/24 History Patient History Medical History Fracture of multiple teeth Sacral pressure sore Ambulatory dysfunction Generalized weakness Anemia Urethral stricture Ascending aorta dilation Mild- 4.4cm per 11/2022 ECHO Obesity Venous insufficiency (chronic) (peripheral) Radiation cystitis Kidney stones x1 episode. no surgery needed. Cardiac arrest hx r/t IV Contrast Dye "many years ago" Allergic rhinitis Contrast media allergy Hiatal hernia Surgical History S/P cataract extraction History of right cataract extraction History of colonoscopy H/O sinus surgery History of appendectomy S/P TURP (status post transurethral resection of prostate) Status post cystoscopy (11/07/13) Family History Father Prostate cancer Brother Prostate cancer Mother Thyroid cancer Cancer Other No family history of adverse response to anesthesia Social History Smoking Status: Never smoker Tobacco Type: Cigarettes Second Hand Exposure: Yes; Do You Dip or Chew Tobacco: No; Hx Alcohol Use: No Hx Substance Use: No Preferred Language: Maori Communication Ability: Impaired Visual Impairment: Limited Hearing Ability: Normal Furniture Salesperson Required: No Beliefs That Will Affect Care: None marital status: Current Living Situation: Spouse Current Living Situation Comment: at home with current occupational status: retired How many Children do You have: 0 Feels Safe at Home: Yes Safety Concerns: Feels Safe At This Time Diet: regular during the past year weight has: decreased > 10 lbs Seatbelt Use: always Do you think of yourself as: straight/heterosexual Gender Identity: Male Assistive Devices: Bedside Commode, Hospital Bed and Walker Review of Systems As reviewed in HPI; a complete ROS was otherwise negative Physical Exam Vitals: see EMR Exam limited due to constraints of telemedicine Gen/Constitutional: appears at stated age, NAD, nontoxic Head: AT, NC Eyes: sclera anicteric, no conjunctival injection ENT: MMM, trachea midline Card: appears to be well-perfused Resp: not tachypneic, nml effort, symmetric chest rise, no accessory muscle use Derm: no visible diaphoresis, no visible rash, no visible jaundice Results & Data Vital Signs (Past 12 Hours) Vital Signs Temp Pulse Pulse Resp BP BP Pulse Ox 07/31/24 11:40 36.5 C 62 18 116/70 96 07/31/24 08:31 36.4 C L 65 117/71 97 07/31/24 07:48 63 07/31/24 03:01 36.6 C 59 L 14 101/62 97 O2 Del Method 07/31/24 11:40 Room Air 07/31/24 08:31 Room Air 07/31/24 07:48 07/31/24 03:01 Room Air Laboratory Results SEE EMR Diagnostic Findings [address] [place] [address] / Director: Damari Briceño M.D. Clinical Laboratory Report Name: EDWIN ESPANA Acct: [id number] Status: ADM IN : 1945 [facility] Date: 07/28/24 Age: 78 Sex: M Dis Date: Loc: [address]/Bed: N282-1 Spec: [id number] Collected: 07/28/24 Received: 07/28/[address]: Duke Patel DO Source: Urine,Indwelling Cath OV Order: Ordered: Urine Culture Procedure Result Verified Site Urine Culture Final 07/30/24 Organism 1 Klebsiella pneumoniae [place] Count >100,000 CFU/ml Sens Sensitivities to Follow Kleb pneum RX M.I.C. --- --------- Amikacin S <=16 Amox/Clav S <=8/4 Amp/Sul S <=4/2 Cefazolin S <=2 Cefepime S <=2 Cefotaxime S <=2 Cefoxitin S <=8 Ceftriaxone S <=1 Cefuroxime S <=4 Ciprofloxacin S <=0.25 Ertapenem S <=0.5 Gentamicin S <=2 Levofloxacin S <=0.5 Meropenem S <=1 Nitrofurantoin S <=32 Tobramycin S <=2 Trimeth/Sulfa R >2/38 Pip/Tazo S <=8 S = SENSITIVE I = INTERMEDIATE R = RESISTANT Name: EDWIN ESPANA : 1945 PAGE 1 Printed: 07/31/24 1316 END OF REPORT
[2024-08-01] MEDS: NYSTATIN SUSP 500,000 U/5 ML UDC PO SCH (04:58)
[2024-08-01 08:31] LABS: Basophils # (auto) 0.05 K/uL (0.00-0.20); Basophils % (auto) 0.8 %; Eosinophils # (auto) 0.32 K/uL (0.00-0.50); Eosinophils % (auto) 5.2 %; Hematocrit (blood only) 30.5 % (42.0-52.0); Hemoglobin 9.4 g/dl (14.0-18.0); Immature Granulocytes # (auto) 0.01 K/uL (0.01-0.20); Immature Granulocytes % (auto) 0.2 %; Lymphocytes # (auto) 1.72 K/uL (1.20-3.40); Lymphocytes % (auto) 27.9 %; Mean Corpuscular Hemoglobin 27.2 pg (25.0-34.0); Mean Corpuscular Hgb Conc 30.8 g/dL (32.0-36.0); Mean Corpuscular Volume 88.4 fL (80.0-100.0); Mean Platelet Volume 8.6 fL (9.4-12.4); Monocytes # (auto) 0.48 K/uL (0.11-0.59); Monocytes % (auto) 7.8 %; Neutrophils # (auto) 3.58 K/uL (1.40-6.50); Neutrophils % (auto) 58.1 %; Platelet Count 271 K/uL (130-400); RDW Coefficient of Variation 15.9 % (11.5-14.5); RDW Standard Deviation 50.4 fL (36.4-46.3); Red Blood Count 3.45 M/uL (4.70-6.10); White Blood Count 6.16 K/ul (4.8-10.8)
[2024-08-01 08:46] LABS: Albumin Level 2.9 gm/dl (3.4-5.0); BUN Creatinine Ratio 10.7 (10-20); Bilirubin,Total 0.5 mg/dl (0.2-1.0); Calcium 8.4 mg/dl (8.6-10.3); Creatinine Clr Calc Pharmacy 65.4 ml/min; Globulin 2.9 gm/dl (2.5-4.0); Magnesium 1.9 mg/dl (1.7-2.4); Phosphorus 3.1 mg/dl (2.5-4.9); Potassium 3.7 mmol/L (3.5-5.1); Total Protein 5.8 gm/dl (6.0-8.3)
[2024-08-01 09:05] LABS: Ferritin 559.4 ng/ml (8-388)
[2024-08-01 09:14] LABS: Folate (Folic Acid),Ser orPlas 14.34 ng/ml (>5.38)
--- NOTE | 2024-08-01 13:11 | Hospitalist Progress Note ---
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 Unwitnessed Fall Recurrent urinary tract infection, no sepsis for now CAUTI History of BPH/prostate cancer/history of bladder cancer status post surgery patient with chronic indwelling Devlin UA suggestive of infection, urine culture currently growing Klebsiella Continue with IV Zosyn at this time, adjust based on cultures. ID consult once more given frequent infections Fall likely in setting of acute infection PT OT eval Continue to monitor Painless hematuria Acute on chronic anemia Iron Deficiency Anemia hemoglobin of 9.5 stable Continue home iron, B12 supplements Anemia panel noting low normal iron levels, supplemented b12 and folate levels Continue to monitor H&H Failure to thrive Malnutrition patient's noting decreased p.o. intake Dietitian consulted, appreciate recs Chronic Medical Problems: Hypertension secondary to illness, currently not on maintenance medications due to history orthostatic hypotension valvular heart disease (moderate , mild AR) hypertension, stable at this time history PE DVT status post IVC filter placement hx Keytruda myocarditis/history of adrenal insufficiency on chronic steroid/fludrocortisone Rx Underlying pulmonary hypertension, hx bronchial asthma/COPD, ANDRZEJ (not currently using CPAP machine due to need for new orders as per PCP notes) Mild cognitive impairment, patient mentating well on regimen Functional disability/ambulatory dysfunction, PT/OT- will likely need acute rehab placement once more continue other home meds as ordered Diet: HH DVT prophylaxis: SCDs Re: Hematuria Full code Dispo: PT OT eval, possible placement if patient/ agreeable Admission and Anticipated Discharge Date Admission Date: July 28, 2024 Subjective patient was seen in the a.m. laying in bed and resting comfortably Anxious for discharge and asking provider to discuss options with his Call placed to his at about 5:40 PM. asking about IV iron infusion. Discussion of iron levels drawn this morning and current p.o. iron supplementation. Also noting that she would prefer that he not go to the custodial facility very far from home. Review of Systems Review of Systems: All systems reviewed & are unremarkable except as noted in Subjective Physical Exam Physical Exam: General: Alert, oriented. No acute distress Psych: Appropriate mood and affect Neuro: Difficulty with movements in the bed HEENT: NC/AT CV: RRR, +murmur Resp: Breath sounds clear bilaterally, no increased effort of breathing Abdomen: Soft, tender Extremities: R>L edema in lower extremities bilaterally. Results & Data Results & Data Vital Signs (Past 12 Hours) Vital Signs Temp Pulse Pulse Resp BP Pulse Ox O2 Del Method 08/01/24 11:42 36.6 C 73 16 110/66 96 Room Air 08/01/24 09:50 70 08/01/24 07:52 36.6 C 70 12 115/70 98 Room Air 08/01/24 03:00 36.3 C L 68 18 118/69 97 Room Air (4) Stage 3 chronic kidney disease Chronic kidney disease stage 3 subtype: unspecified whether 3a or 3b Qualified Code(s): N18.30 - Chronic kidney disease, stage 3 unspecified
[2024-08-02 08:49] LABS: Basophils # (auto) 0.04 K/uL (0.00-0.20); Basophils % (auto) 0.7 %; Eosinophils # (auto) 0.27 K/uL (0.00-0.50); Eosinophils % (auto) 4.4 %; Hematocrit (blood only) 31.4 % (42.0-52.0); Hemoglobin 9.5 g/dl (14.0-18.0); Immature Granulocytes # (auto) 0.02 K/uL (0.01-0.20); Immature Granulocytes % (auto) 0.3 %; Lymphocytes # (auto) 2.05 K/uL (1.20-3.40); Lymphocytes % (auto) 33.6 %; Mean Corpuscular Hemoglobin 26.8 pg (25.0-34.0); Mean Corpuscular Hgb Conc 30.3 g/dL (32.0-36.0); Mean Corpuscular Volume 88.5 fL (80.0-100.0); Mean Platelet Volume 8.3 fL (9.4-12.4); Monocytes # (auto) 0.44 K/uL (0.11-0.59); Monocytes % (auto) 7.2 %; Neutrophils # (auto) 3.28 K/uL (1.40-6.50); Neutrophils % (auto) 53.8 %; Platelet Count 260 K/uL (130-400); RDW Standard Deviation 51.4 fL (36.4-46.3); Red Blood Count 3.55 M/uL (4.70-6.10)
[2024-08-02 09:08] LABS: Albumin Level 2.9 gm/dl (3.4-5.0); Bilirubin,Total 0.5 mg/dl (0.2-1.0); Calcium 8.4 mg/dl (8.6-10.3); Creatinine Clr Calc Pharmacy 62.4 ml/min; Magnesium 1.9 mg/dl (1.7-2.4); Phosphorus 3.4 mg/dl (2.5-4.9); Potassium 3.6 mmol/L (3.5-5.1); Total Protein 5.9 gm/dl (6.0-8.3)
--- NOTE | 2024-08-02 17:27 | Hospitalist Progress Note ---
Date of Service August 02, 2024 Assessment & Plan (1) Chronic indwelling Devlin catheter: (2) Hx of prostatic malignancy: (3) Orthostatic hypotension: (4) Stage 3 chronic kidney disease: (5) Adrenal insufficiency: Plan Mr. 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 There was concern for recurrent UTI for which patient treated with 5 days empiric coverage. ID not suspicious cultures suggestive of CAUTI. but rather bacteruria Discussed with Ivet that patient has multiple comorbidities and frequent hospitalizations, Reviewed OSH notes: -Patient discharged from [facility] 07/[address] followed up [address] Dr. Batista on 07/24: abilify discontinued at that visit, continued on lexapro Will continue Abilify while admitted 2/2 dleirium and anxiety #Unwitnessed Fall #History of recurrent CAUTI #BPH/prostate cancer/history of bladder cancer status post surgery patient with chronic indwelling Devlin Patient with multiple chronic conditions likely contributing to falls PT OT eval Continue to monitor tsh last collected 03/2024 at 2.11, will repeat #Chronic hematuria #Acute on chronic anemia #Iron Deficiency Anemia hemoglobin of 9.5 stable Continue home iron, B12 supplements Anemia panel noting low normal iron levels, supplemented b12 and folate levels -Iron level improved compared to prior levels Continue to monitor H&H #Failure to thrive #Malnutrition patient's noting decreased p.o. intake Dietitian consulted, appreciate recs Chronic Medical Problems: Hypertension secondary to illness, currently not on maintenance medications due to history orthostatic hypotension valvular heart disease (moderate , mild AR) hypertension, stable at this time history PE DVT status post IVC filter placement hx Keytruda myocarditis/history of adrenal insufficiency on chronic steroid/fludrocortisone Rx Underlying pulmonary hypertension, hx bronchial asthma/COPD, ANDRZEJ (not currently using CPAP machine due to need for new orders as per PCP notes) Mild cognitive impairment, patient mentating well on regimen Functional disability/ambulatory dysfunction, PT/OT- will likely need acute rehab placement once more continue other home meds as ordered Diet: HH DVT prophylaxis: SCDs Re: Hematuria Full code Dispo: PT OT eval, possible placement if patient/ agreeable Admission and Anticipated Discharge Date Admission Date: July 28, 2024 Subjective Confused this am, but seemingly more calm in the afternoons Unable to report new concerns--nurse able to guide morning events Patient requesting to speak to "friends" and reassured will attempt to aid patient to get in contact with friends Called Ivet this am--discussed patient will complete course of abx and reassured that iron levels are improved from prior visit, she verbalized understanding Discussed that safety at home and that rehab isnt necessarily "manadatory" but strongly encouraged given his high level needs that cannot be accommodated at home given his current level of function Physical Exam Constitutional: sitting bedside chair, agitated/anxious, able to be redirected Respiratory: normal respiratory effort, lungs clear to auscultation Cardiovascular: RRR, no murmur, no edema Results & Data Results & Data Vital Signs (Past 12 Hours) Vital Signs Temp Pulse Resp BP Pulse Ox O2 Del Method 08/02/24 16:02 36.5 C 67 16 123/71 98 Room Air 08/02/24 11:08 36.4 C L 72 18 97/65 L 99 Room Air 08/02/24 08:05 36.3 C L 67 16 146/69 H 98 Room Air 08/02/24 07:30 Room Air Laboratory Results Short CBC 08/02/24 Range/Units 08:13 WBC 6.10 (4.8-10.8) K/ul Hgb 9.5 L (14.0-18.0) g/dl Hct 31.4 L (42.0-52.0) % Plt Count 260 (130-400) K/uL BMP 08/02/24 08:13 Sodium 141 Potassium 3.6 Chloride 106 Carbon Dioxide 28 BUN 14 Creatinine 1.27 Glucose 90 Calcium 8.4 L Liver Function 08/02/24 Range/Units 08:13 Total Bilirubin 0.5 (0.2-1.0) mg/dl AST 13 (13-39) U/L ALT 14 (7-52) U/L Alkaline Phosphatase 73 (34-104) U/L Albumin 2.9 L (3.4-5.0) gm/dl Medications Administered Home Medications Medication Instructions Recorded Confirmed Last Taken acetaminophen 325 mg tablet 650 mg (2 x 325 mg) PO Q4H PRN 06/08/24 07/28/24 Unknown fever or pain #30 tabs albuterol sulfate 90 mcg/actuation 2 puff inhalation Q4H PRN 06/08/24 07/28/24 Unknown aerosol inhaler Shortness Of Breath Or Wheezing #16 grams ascorbic acid (vitamin C) 1,000 mg 1,000 mg PO DAILY #30 tabs 06/08/24 07/28/24 Unknown tablet aspirin 81 mg tablet,delayed 81 mg PO DAILY #30 tabs 06/08/24 07/28/24 Unknown release cholecalciferol (vitamin D3) 125 125 mcg PO DAILY #30 tabs 06/08/24 07/28/24 Unknown mcg (5,000 unit) tablet (Vitamin D3) cyanocobalamin (vitamin B-12) 1,000 mcg PO DAILY #30 tabs 06/08/24 07/28/24 Unknown 1,000 mcg tablet epinephrine 0.3 mg/0.3 mL 0.3 mg (0.3 mL) IM UD PRN 06/08/24 07/28/24 Unknown injection, auto-injector Anaphylaxis #3 ea ferrous sulfate 325 mg (65 mg 325 mg PO DAILY #30 tabs 06/08/24 07/28/24 Unknown iron) tablet,delayed release fludrocortisone 0.1 mg tablet 0.1 mg PO DAILY #30 tabs 06/08/24 07/28/24 Unknown fluticasone fur. 200 mcg-umeclid 1 inh inhalation DAILY #1 ea 06/08/24 07/28/24 Unknown 62.5 mcg-vilant 25 mcg inhalat.powder (Trelegy Ellipta) lidocaine 5 % topical patch 2 patch transdermal DAILY #20 ea 06/08/24 07/28/24 Unknown magnesium chloride 64 mg 64 mg PO BID #60 tabs 06/08/24 07/28/24 Unknown (magnesium chloride) tablet,delayed release memantine 10 mg tablet 10 mg PO BID #60 tabs 06/08/24 07/28/24 Unknown multivitamin with minerals-folic 1 tab PO DAILY #30 tabs 06/08/24 07/28/24 Unknown acid 200 mcg chewable tablet (Multivitamin Gummies) nystatin 100,000 unit/gram topical 1 applic EXT BID #30 grams 06/08/24 07/28/24 Unknown powder (Nystop) omeprazole 20 mg capsule,delayed 20 mg PO DAILY #30 caps 06/08/24 07/28/24 Unknown release solifenacin 5 mg tablet 5 mg PO DAILY #30 tabs 06/08/24 07/28/24 Unknown L.acidop,casei,lactis,rham-B.lact,sienna 1 cap PO DAILY 30 days #30 caps 07/07/24 07/28/24 Unknown 625 mg (10 billion cell) capsule (Advanced Probiotic) aripiprazole 5 mg tablet (Abilify) 2.5 mg (1/2 x 5 mg) PO QAM 30 days 07/07/24 07/28/24 Unknown #15 tabs escitalopram oxalate 10 mg tablet 5 mg (1/2 x 10 mg) PO QAM 30 days 07/07/24 07/28/24 Unknown #15 tabs hydrocortisone 10 mg tablet 10 mg PO 1500 #0 tabs 07/07/24 07/28/24 Unknown (Cortef) hydrocortisone 10 mg tablet 20 mg (2 x 10 mg) PO QAM #0 tabs 07/07/24 07/28/24 Unknown (Cortef) methocarbamol 500 mg tablet 500 mg PO DAILY 07/28/24 07/28/24 Unknown mirabegron 25 mg tablet,extended 25 mg PO DAILY 07/28/24 07/28/24 Unknown release 24 hr (Myrbetriq) sennosides 8.6 mg tablet (senna) 8.6 mg PO DAILY PRN Constipation 07/28/24 07/28/24 Unknown Active Medications Generic Name Dose Route Start Last Admin Trade Name Freq PRN Reason Stop Dose Admin Acetaminophen 650 mg 07/28/24 22:49 08/02/24 08:18 Acetaminophen 325 Mg Tab PO 08/27/24 22:48 650 mg QID PRN Administration pain/fever Aripiprazole 2.5 mg 07/29/24 09:00 08/02/24 08:05 Aripiprazole 5 Mg Tab PO 08/28/24 08:59 2.5 mg QAM TAWNY Administration Cyanocobalamin 1,000 mcg 07/29/24 09:00 08/02/24 08:06 Cyanocobalamin (B-12) 500 Mcg Tablet PO 08/28/24 08:59 1,000 mcg DAILY TAWNY Administration Escitalopram Oxalate 5 mg 07/29/24 09:00 08/02/24 08:09 Escitalopram Oxalate 10 Mg Tab PO 08/28/24 08:59 5 mg QAM TAWNY Administration Ferrous Sulfate 325 mg 07/29/24 09:00 08/02/24 08:10 Ferrous Sulfate 325 Mg Tab PO 08/28/24 08:59 325 mg DAILY TAWNY Administration Fludrocortisone Acetate 0.1 mg 07/29/24 09:00 08/02/24 08:09 Fludrocortisone Acetate 0.1 Mg Tab PO 08/28/24 08:59 0.1 mg DAILY TAWNY Administration Fluticasone Furoate 1 puffs 07/29/24 09:00 08/02/24 08:11 Fluticasone Furoate 200mcg 14 Puffs/Inhaler INH 08/28/24 08:59 1 puffs DAILY TAWNY Administration Hydrocortisone 10 mg 07/29/24 15:00 08/02/24 16:14 Hydrocortisone 10 Mg Tab PO 08/28/24 14:59 10 mg 1500 TAWNY Administration Hydrocortisone 20 mg 07/29/24 09:00 08/02/24 08:06 Hydrocortisone 10 Mg Tab PO 08/28/24 08:59 20 mg QAM TAWNY Administration Lactobacillus Acidophilus 1,250 mg 07/29/24 09:00 08/02/24 08:05 Advanced Probiotic 625 Mg Capsule PO 08/28/24 08:59 1,250 mg DAILY TAWNY Administration Lidocaine 2 patch 07/29/24 09:00 08/02/24 08:11 Lidocaine 5% 1 Patch TD 08/28/24 08:59 2 patch DAILY TAWNY Administration Melatonin 3 mg 07/30/24 20:43 08/01/24 20:13 Melatonin 3 Mg Tab PO 08/29/24 20:42 3 mg HS PRN Administration Sleep Memantine 10 mg 07/28/24 23:00 08/02/24 08:10 Memantine Hcl 10 Mg Tab PO 08/27/24 22:59 10 mg BID TAWNY Administration Methocarbamol 500 mg 07/29/24 09:00 08/02/24 08:09 Methocarbamol 500 Mg Tablet PO 08/28/24 08:59 500 mg DAILY TAWNY Administration Miscellaneous 1 each 07/29/24 21:00 08/01/24 20:10 Remove Lidoderm Patch N/A 08/28/24 20:59 1 each DAILY@2100 TAWNY Administration Multivitamins/Minerals 1 tab 07/29/24 09:00 08/02/24 08:06 Cerovite Adv Formula Tab PO 08/28/24 08:59 1 tab DAILY TAWNY Administration Nystatin 1 appln 07/29/24 09:00 08/02/24 08:11 Nystatin Powder 15gm Btl EXT 08/28/24 08:59 1 appln BID TAWNY Administration Nystatin 5 ml 08/01/24 04:10 08/02/24 16:14 Nystatin Susp 500,000 U/5 Ml Udc PO 08/11/24 04:09 5 ml QID TAWNY Administration Oxybutynin Chloride 5 mg 07/29/24 09:00 08/02/24 08:08 Oxybutynin Chloride Xl 5 Mg Tabcr PO 08/28/24 08:59 5 mg DAILY TAWNY Administration Pantoprazole Sodium 40 mg 07/29/24 09:00 08/02/24 08:07 Pantoprazole 40 Mg Tab PO 08/28/24 08:59 40 mg DAILY TAWNY Administration Sennosides 8.6 mg 07/28/24 22:50 08/01/24 08:33 Senna 8.6 Mg Tab PO 08/27/24 22:49 8.6 mg DAILY PRN Administration Constipation Umeclidinium/Vilanterol 1 puffs 07/29/24 09:00 08/02/24 08:12 Umeclidinium/Vilanterol 62.5/25mcg 7 Puffs/Inhaler INH 08/28/24 08:59 1 puffs DAILY TAWNY Administration Vibegron 75 mg 07/29/24 09:00 08/02/24 08:05 Vibegron 75 Mg Tab PO 08/28/24 08:59 75 mg DAILY TAWNY Administration Vitamin D 125 mcg 07/29/24 09:00 08/02/24 08:07 Cholecalciferol 125 Mcg (5,000 Units) Tab PO 08/28/24 08:59 125 mcg DAILY TAWNY Administration (4) Stage 3 chronic kidney disease Chronic kidney disease stage 3 subtype: unspecified whether 3a or 3b Qualified Code(s): N18.30 - Chronic kidney disease, stage 3 unspecified
[2024-08-03 06:30] LABS: Thyroid Stimulating Hormone 2.718 uIu/ml (0.300-4.500)
--- NOTE | 2024-08-03 07:13 | Hospitalist Progress Note ---
Date of Service August 03, 2024 Assessment & Plan (1) Chronic indwelling Devlin catheter: (2) Hx of prostatic malignancy: (3) Orthostatic hypotension: (4) Stage 3 chronic kidney disease: (5) Adrenal insufficiency: Plan Mr. 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 There was concern for recurrent UTI for which patient treated with 5 days empiric coverage. ID not suspicious cultures suggestive of CAUTI. but rather bacteruria Discussed with Ivet that patient has multiple comorbidities and frequent hospitalizations, Reviewed OSH notes: -Patient discharged from [facility] 07/21 and followed up with Dr. Batista on 07/24: abilify discontinued at that visit, continued on lexapro Will continue Abilify while admitted 2/2 delirium and anxiety. Patient doing much better this morning mood wade. Working to discuss with Dr. Gramajo about prognosis from an oncological standpoint. Discussed with Ivet that patient has multiple comorbidities that are progressive and that "normal" may not be what she is anticipating. Briefly discussed consideration of hospice--however Ivet reports that isn't in their goals at this time. Plan for likely SNF; however, will be Wednesday prior to discharge No current changes to med management #Unwitnessed Fall #History of recurrent CAUTI #BPH/prostate cancer/history of bladder cancer status post surgery patient with chronic indwelling Devlin Patient with multiple chronic conditions likely contributing to falls PT OT eval Continue to monitor tsh last collected 03/2024 at 2.11, will repeat #Chronic hematuria #Acute on chronic anemia #Iron Deficiency Anemia hemoglobin of 9.5 stable Continue home iron, B12 supplements Anemia panel noting low normal iron levels, supplemented b12 and folate levels -Iron level improved compared to prior levels Continue to monitor H&H #Failure to thrive #Malnutrition patient's noting decreased p.o. intake Dietitian consulted, appreciate recs Chronic Medical Problems: Hypertension secondary to illness, currently not on maintenance medications due to history orthostatic hypotension valvular heart disease (moderate , mild AR) hypertension, stable at this time history PE DVT status post IVC filter placement hx Keytruda myocarditis/history of adrenal insufficiency on chronic steroid/fludrocortisone Rx Underlying pulmonary hypertension, hx bronchial asthma/COPD, ANDRZEJ (not currently using CPAP machine due to need for new orders as per PCP notes) Mild cognitive impairment, patient mentating well on regimen Functional disability/ambulatory dysfunction, PT/OT- will likely need acute rehab placement once more continue other home meds as ordered Diet: HH DVT prophylaxis: SCDs Re: Hematuria Full code Dispo: SNF likely wednesday Admission and Anticipated Discharge Date Admission Date: July 28, 2024 Subjective Much better spirits, reports mood and anxiety much improved from yesterday No big complaints reported at this time States that he appreciates the reassurance, readdressed that updates are being given to which helped him feel calm No other events reported overnight Physical Exam Constitutional: WD/WN, vitals as above Respiratory: normal respiratory effort, lungs clear to auscultation Cardiovascular: RRR, no murmur, no edema Gastrointestinal (Abdomen): normal bowel sounds, soft, nontender, no hepatosplenomegaly Neurologic: PERRL, EOMI, accommodation nl, no face palsy, no dysarthria Results & Data Results & Data Vital Signs (Past 12 Hours) Vital Signs Temp Pulse Pulse Resp BP BP Pulse Ox 08/03/24 03:23 36.5 C 65 16 122/71 96 08/02/24 23:07 36.3 C L 62 18 122/69 95 08/02/24 21:52 73 08/02/24 19:33 36.3 C L 71 18 159/77 H 99 O2 Del Method 08/03/24 03:23 Room Air 08/02/24 23:07 Room Air 08/02/24 21:52 08/02/24 19:33 Room Air Laboratory Results Short CBC 08/03/24 Range/Units 08:31 WBC 7.08 (4.8-10.8) K/ul Hgb 9.4 L (14.0-18.0) g/dl Hct 30.7 L (42.0-52.0) % Plt Count 278 (130-400) K/uL [facility] 08/03/24 08:31 Sodium 141 Potassium 3.5 Chloride 108 H Carbon Dioxide 27 BUN 15 Creatinine 1.20 Glucose 93 Calcium 8.4 L Medications Administered Home Medications Medication Instructions Recorded Confirmed Last Taken acetaminophen 325 mg tablet 650 mg (2 x 325 mg) PO Q4H PRN 06/08/24 07/28/24 Unknown fever or pain #30 tabs albuterol sulfate 90 mcg/actuation 2 puff inhalation Q4H PRN 06/08/24 07/28/24 Unknown aerosol inhaler Shortness Of Breath Or Wheezing #16 grams ascorbic acid (vitamin C) 1,000 mg 1,000 mg PO DAILY #30 tabs 06/08/24 07/28/24 Unknown tablet aspirin 81 mg tablet,delayed 81 mg PO DAILY #30 tabs 06/08/24 07/28/24 Unknown release cholecalciferol (vitamin D3) 125 125 mcg PO DAILY #30 tabs 06/08/24 07/28/24 Unknown mcg (5,000 unit) tablet (Vitamin D3) cyanocobalamin (vitamin B-12) 1,000 mcg PO DAILY #30 tabs 06/08/24 07/28/24 Unknown 1,000 mcg tablet epinephrine 0.3 mg/0.3 mL 0.3 mg (0.3 mL) IM UD PRN 06/08/24 07/28/24 Unknown injection, auto-injector Anaphylaxis #3 ea ferrous sulfate 325 mg (65 mg 325 mg PO DAILY #30 tabs 06/08/24 07/28/24 Unknown iron) tablet,delayed release fludrocortisone 0.1 mg tablet 0.1 mg PO DAILY #30 tabs 06/08/24 07/28/24 Unknown fluticasone fur. 200 mcg-umeclid 1 inh inhalation DAILY #1 ea 06/08/24 07/28/24 Unknown 62.5 mcg-vilant 25 mcg inhalat.powder (Trelegy Ellipta) lidocaine 5 % topical patch 2 patch transdermal DAILY #20 ea 06/08/24 07/28/24 Unknown magnesium chloride 64 mg 64 mg PO BID #60 tabs 06/08/24 07/28/24 Unknown (magnesium chloride) tablet,delayed release memantine 10 mg tablet 10 mg PO BID #60 tabs 06/08/24 07/28/24 Unknown multivitamin with minerals-folic 1 tab PO DAILY #30 tabs 06/08/24 07/28/24 Unknown acid 200 mcg chewable tablet (Multivitamin Gummies) nystatin 100,000 unit/gram topical 1 applic EXT BID #30 grams 06/08/24 07/28/24 Unknown powder (Nystop) omeprazole 20 mg capsule,delayed 20 mg PO DAILY #30 caps 06/08/24 07/28/24 Unknown release solifenacin 5 mg tablet 5 mg PO DAILY #30 tabs 06/08/24 07/28/24 Unknown L.acidop,casei,lactis,rham-B.lact,sienna 1 cap PO DAILY 30 days #30 caps 07/07/24 07/28/24 Unknown 625 mg (10 billion cell) capsule (Advanced Probiotic) aripiprazole 5 mg tablet (Abilify) 2.5 mg (1/2 x 5 mg) PO QAM 30 days 07/07/24 07/28/24 Unknown #15 tabs escitalopram oxalate 10 mg tablet 5 mg (1/2 x 10 mg) PO QAM 30 days 07/07/24 1 09/28/23 Unknown #15 tabs hydrocortisone 10 mg tablet 10 mg PO 1500 #0 tabs 07/07/24 07/28/24 Unknown (Cortef) hydrocortisone 10 mg tablet 20 mg (2 x 10 mg) PO QAM #0 tabs 07/07/24 07/28/24 Unknown (Cortef) methocarbamol 500 mg tablet 500 mg PO DAILY 07/28/24 07/28/24 Unknown mirabegron 25 mg tablet,extended 25 mg PO DAILY 07/28/24 07/28/24 Unknown release 24 hr (Myrbetriq) sennosides 8.6 mg tablet (senna) 8.6 mg PO DAILY PRN Constipation 07/28/24 07/28/24 Unknown Active Medications Generic Name Dose Route Start Last Admin Trade Name Freq PRN Reason Stop Dose Admin Acetaminophen 650 mg 07/28/24 22:49 08/02/24 08:18 Acetaminophen 325 Mg Tab PO 08/27/24 22:48 650 mg QID PRN Administration pain/fever Aripiprazole 2.5 mg 07/29/24 09:00 08/03/24 08:47 Aripiprazole 5 Mg Tab PO 08/28/24 08:59 2.5 mg QAM TAWNY Administration Cyanocobalamin 1,000 mcg 07/29/24 09:00 08/03/24 08:49 Cyanocobalamin (B-12) 500 Mcg Tablet PO 08/28/24 08:59 1,000 mcg DAILY TAWNY Administration Escitalopram Oxalate 5 mg 07/29/24 09:00 08/03/24 08:48 Escitalopram Oxalate 10 Mg Tab PO 08/28/24 08:59 5 mg QAM TAWNY Administration Ferrous Sulfate 325 mg 07/29/24 09:00 08/03/24 08:49 Ferrous Sulfate 325 Mg Tab PO 08/28/24 08:59 325 mg DAILY TAWNY Administration Fludrocortisone Acetate 0.1 mg 07/29/24 09:00 08/03/24 08:48 Fludrocortisone Acetate 0.1 Mg Tab PO 08/28/24 08:59 0.1 mg DAILY TAWNY Administration Fluticasone Furoate 1 puffs 07/29/24 09:00 08/03/24 08:47 Fluticasone Furoate 200mcg 14 Puffs/Inhaler INH 08/28/24 08:59 1 puffs DAILY TAWNY Administration Hydrocortisone 10 mg 07/29/24 15:00 08/02/24 16:14 Hydrocortisone 10 Mg Tab PO 08/28/24 14:59 10 mg 1500 TAWNY Administration Hydrocortisone 20 mg 07/29/24 09:00 08/03/24 08:48 Hydrocortisone 10 Mg Tab PO 08/28/24 08:59 20 mg QAM TAWNY Administration Lactobacillus Acidophilus 1,250 mg 07/29/24 09:00 08/03/24 08:47 Advanced Probiotic 625 Mg Capsule PO 08/28/24 08:59 1,250 mg DAILY TAWNY Administration Lidocaine 2 patch 07/29/24 09:00 08/03/24 08:48 Lidocaine 5% 1 Patch TD 08/28/24 08:59 2 patch DAILY TAWNY Administration Melatonin 3 mg 07/30/24 20:43 08/02/24 20:05 Melatonin 3 Mg Tab PO 08/29/24 20:42 3 mg HS PRN Administration Sleep Memantine 10 mg 07/28/24 23:00 08/03/24 08:49 Memantine Hcl 10 Mg Tab PO 08/27/24 22:59 10 mg BID TAWNY Administration Methocarbamol 500 mg 07/29/24 09:00 08/03/24 08:49 Methocarbamol 500 Mg Tablet PO 08/28/24 08:59 500 mg DAILY TAWNY Administration Miscellaneous 1 each 07/29/24 21:00 08/02/24 20:06 Remove Lidoderm Patch N/A 08/28/24 20:59 1 each DAILY@2100 TAWNY Administration Multivitamins/Minerals 1 tab 07/29/24 09:00 08/03/24 08:48 Cerovite Adv Formula Tab PO 08/28/24 08:59 1 tab DAILY TAWNY Administration Nystatin 1 appln 07/29/24 09:00 08/03/24 08:47 Nystatin Powder 15gm Btl EXT 08/28/24 08:59 1 appln BID TAWNY Administration Nystatin 5 ml 08/01/24 04:10 08/03/24 08:47 Nystatin Susp 500,000 U/5 Ml Udc PO 08/11/24 04:09 5 ml QID TAWNY Administration Oxybutynin Chloride 5 mg 07/29/24 09:00 08/03/24 08:49 Oxybutynin Chloride Xl 5 Mg Tabcr PO 08/28/24 08:59 5 mg DAILY TAWNY Administration Pantoprazole Sodium 40 mg 07/29/24 09:00 08/03/24 08:49 Pantoprazole 40 Mg Tab PO 08/28/24 08:59 40 mg DAILY TAWNY Administration Sennosides 8.6 mg 07/28/24 22:50 08/01/24 08:33 Senna 8.6 Mg Tab PO 08/27/24 22:49 8.6 mg DAILY PRN Administration Constipation Umeclidinium/Vilanterol 1 puffs 07/29/24 09:00 08/03/24 08:47 Umeclidinium/Vilanterol 62.5/25mcg 7 Puffs/Inhaler INH 08/28/24 08:59 1 puffs DAILY TAWNY Administration Vibegron 75 mg 07/29/24 09:00 08/03/24 08:47 Vibegron 75 Mg Tab PO 08/28/24 08:59 75 mg DAILY TAWNY Administration Vitamin D 125 mcg 07/29/24 09:00 08/03/24 08:48 Cholecalciferol 125 Mcg (5,000 Units) Tab PO 08/28/24 08:59 125 mcg DAILY TAWNY Administration (4) Stage 3 chronic kidney disease Chronic kidney disease stage 3 subtype: unspecified whether 3a or 3b Qualified Code(s): N18.30 - Chronic kidney disease, stage 3 unspecified
[2024-08-03 09:00] LABS: Hematocrit (blood only) 30.7 % (42.0-52.0); Hemoglobin 9.4 g/dl (14.0-18.0); Mean Corpuscular Hemoglobin 27.4 pg (25.0-34.0); Mean Corpuscular Hgb Conc 30.6 g/dL (32.0-36.0); Mean Corpuscular Volume 89.5 fL (80.0-100.0); Mean Platelet Volume 8.7 fL (9.4-12.4); Platelet Count 278 K/uL (130-400); RDW Coefficient of Variation 15.7 % (11.5-14.5); RDW Standard Deviation 50.2 fL (36.4-46.3); Red Blood Count 3.43 M/uL (4.70-6.10); White Blood Count 7.08 K/ul (4.8-10.8)
[2024-08-03 09:10] LABS: BUN Creatinine Ratio 12.5 (10-20); Calcium 8.4 mg/dl (8.6-10.3); Creatinine Clr Calc Pharmacy 66.1 ml/min; Potassium 3.5 mmol/L (3.5-5.1)
--- NOTE | 2024-08-04 14:02 | Hospitalist Progress Note ---
Date of Service August 04, 2024 Assessment & Plan (1) Chronic indwelling Devlin catheter: (2) Hx of prostatic malignancy: (3) Orthostatic hypotension: (4) Stage 3 chronic kidney disease: (5) Adrenal insufficiency: Plan Mr. 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 There was concern for recurrent UTI for which patient treated with 5 days empiric coverage. ID not suspicious cultures suggestive of CAUTI. but rather bacteruria Discussed with Ivet that patient has multiple comorbidities and frequent hospitalizations, Reviewed OSH notes: -Patient discharged from [facility] 07/21 and followed up with Dr. Batista on 07/24: abilify discontinued at that visit, continued on lexapro Will continue Abilify while admitted 2/2 delirium and anxiety. Patient doing much better this morning mood wade. Briefly discussed prognosis of oncologic status with Dr. Gramajo, who notes that oncologically patient continues with surveillance and no evidence of active disease. It is noted that patient has reported decline over last year. Discussed with Ivet that patient has multiple comorbidities that are progressive and that "normal" may not be what she is anticipating. Plan for likely SNF; however, will be Wednesday prior to discharge No current changes to med management #Unwitnessed Fall #History of recurrent CAUTI #BPH/prostate cancer/history of bladder cancer status post surgery patient with chronic indwelling Devlin Patient with multiple chronic conditions likely contributing to falls PT OT eval Continue to monitor tsh last collected 03/2024 at 2.11, will repeat #Chronic hematuria #Acute on chronic anemia #Iron Deficiency Anemia hemoglobin of 9.5 stable Continue home iron, B12 supplements Anemia panel noting low normal iron levels, supplemented b12 and folate levels -Iron level improved compared to prior levels Continue to monitor H&H #Failure to thrive #Malnutrition patient's noting decreased p.o. 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 #History of prostate cancer, s/p EBRT 2018 #Radiation cystitis s/p keytruda c/b myocarditis due for cystoscopy in 08/2024 Chronic Medical Problems: Hypertension secondary to illness, currently not on maintenance medications due to history orthostatic hypotension valvular heart disease (moderate , mild AR) hypertension, stable at this time history PE DVT status post IVC filter placement hx Keytruda myocarditis/history of adrenal insufficiency on chronic steroid/fludrocortisone Rx Underlying pulmonary hypertension, hx bronchial asthma/COPD, ANDRZEJ (not currently using CPAP machine due to need for new orders as per PCP notes) Mild cognitive impairment, patient mentating well on regimen Functional disability/ambulatory dysfunction, PT/OT- will likely need acute rehab placement once more continue other home meds as ordered Diet: HH DVT prophylaxis: SCDs Re: Hematuria Full code Dispo: SNF likely wednesday Admission and Anticipated Discharge Date Admission Date: July 28, 2024 Subjective NAEO Reports feeling much improved overall--seemingly does better in midmorning Denies chest pain, palpitations or other concerns Physical Exam Constitutional: WD/WN, vitals as above Respiratory: normal respiratory effort, lungs clear to auscultation Cardiovascular: RRR, no murmur, no edema Gastrointestinal (Abdomen): normal bowel sounds, soft, nontender, no hepatosplenomegaly Neurologic: PERRL, EOMI, accommodation nl, no face palsy, no dysarthria Results & Data Results & Data Vital Signs (Past 12 Hours) Vital Signs Temp Pulse Pulse Resp BP BP Pulse Ox 08/04/24 11:45 36.8 C 67 18 133/71 95 08/04/24 07:58 36.7 C 68 20 147/78 H 97 08/04/24 07:35 69 08/04/24 03:52 36.8 C 70 16 144/75 H 97 08/04/24 03:21 70 08/04/24 02:19 O2 Del Method 08/04/24 11:45 Room Air 08/04/24 07:58 Room Air 08/04/24 07:35 08/04/24 03:52 Room Air 08/04/24 03:21 08/04/24 02:19 Room Air Medications Administered Home Medications Medication Instructions Recorded Confirmed Last Taken acetaminophen 325 mg tablet 650 mg (2 x 325 mg) PO Q4H PRN 10/24/24 12/13/24 Unknown fever or pain #30 tabs albuterol sulfate 90 mcg/actuation 2 puff inhalation Q4H PRN 06/08/24 07/28/24 Unknown aerosol inhaler Shortness Of Breath Or Wheezing #16 grams ascorbic acid (vitamin C) 1,000 mg 1,000 mg PO DAILY #30 tabs 06/08/24 07/28/24 Unknown tablet aspirin 81 mg tablet,delayed 81 mg PO DAILY #30 tabs 06/08/24 07/28/24 Unknown release cholecalciferol (vitamin D3) 125 125 mcg PO DAILY #30 tabs 06/08/24 07/28/24 Unknown mcg (5,000 unit) tablet (Vitamin D3) cyanocobalamin (vitamin B-12) 1,000 mcg PO DAILY #30 tabs 06/08/24 07/28/24 Unknown 1,000 mcg tablet epinephrine 0.3 mg/0.3 mL 0.3 mg (0.3 mL) IM UD PRN 06/08/24 07/28/24 Unknown injection, auto-injector Anaphylaxis #3 ea ferrous sulfate 325 mg (65 mg 325 mg PO DAILY #30 tabs 06/08/24 07/28/24 Unknown iron) tablet,delayed release fludrocortisone 0.1 mg tablet 0.1 mg PO DAILY #30 tabs 06/08/24 07/28/24 Unknown fluticasone fur. 200 mcg-umeclid 1 inh inhalation DAILY #1 ea 06/08/24 07/28/24 Unknown 62.5 mcg-vilant 25 mcg inhalat.powder (Trelegy Ellipta) lidocaine 5 % topical patch 2 patch transdermal DAILY #20 ea 06/08/24 07/28/24 Unknown magnesium chloride 64 mg 64 mg PO BID #60 tabs 06/08/24 07/28/24 Unknown (magnesium chloride) tablet,delayed release memantine 10 mg tablet 10 mg PO BID #60 tabs 06/08/24 07/28/24 Unknown multivitamin with minerals-folic 1 tab PO DAILY #30 tabs 06/08/24 07/28/24 Unknown acid 200 mcg chewable tablet (Multivitamin Gummies) nystatin 100,000 unit/gram topical 1 applic EXT BID #30 grams 06/08/24 07/28/24 Unknown powder (Nystop) omeprazole 20 mg capsule,delayed 20 mg PO DAILY #30 caps 06/08/24 07/28/24 Unknown release solifenacin 5 mg tablet 5 mg PO DAILY #30 tabs 06/08/24 07/28/24 Unknown L.acidop,casei,lactis,rham-B.lact,sienna 1 cap PO DAILY 30 days #30 caps 07/07/24 07/28/24 Unknown 625 mg (10 billion cell) capsule (Advanced Probiotic) aripiprazole 5 mg tablet (Abilify) 2.5 mg (1/2 x 5 mg) PO QAM 30 days 07/07/24 07/28/24 Unknown #15 tabs escitalopram oxalate 10 mg tablet 5 mg (1/2 x 10 mg) PO QAM 30 days 07/07/24 07/28/24 Unknown #15 tabs hydrocortisone 10 mg tablet 10 mg PO 1500 #0 tabs 07/07/24 07/28/24 Unknown (Cortef) hydrocortisone 10 mg tablet 20 mg (2 x 10 mg) PO QAM #0 tabs 07/07/24 07/28/24 Unknown (Cortef) methocarbamol 500 mg tablet 500 mg PO DAILY 07/28/24 07/28/24 Unknown mirabegron 25 mg tablet,extended 25 mg PO DAILY 07/28/24 07/28/24 Unknown release 24 hr (Myrbetriq) sennosides 8.6 mg tablet (senna) 8.6 mg PO DAILY PRN Constipation 07/28/24 07/28/24 Unknown Active Medications Generic Name Dose Route Start Last Admin Trade Name Jennifer PRN Reason Stop Dose Admin Acetaminophen 650 mg 07/28/24 22:49 08/02/24 08:18 Acetaminophen 325 Mg Tab PO 08/27/24 22:48 650 mg QID PRN Administration pain/fever Aripiprazole 2.5 mg 07/29/24 09:00 08/04/24 08:27 Aripiprazole 5 Mg Tab PO 08/28/24 08:59 2.5 mg QAM TAWNY Administration Cyanocobalamin 1,000 mcg 07/29/24 09:00 08/04/24 08:28 Cyanocobalamin (B-12) 500 Mcg Tablet PO 08/28/24 08:59 1,000 mcg DAILY TAWNY Administration Escitalopram Oxalate 5 mg 07/29/24 09:00 08/04/24 08:30 Escitalopram Oxalate 10 Mg Tab PO 08/28/24 08:59 5 mg QAM TAWNY Administration Ferrous Sulfate 325 mg 07/29/24 09:00 08/03/24 08:49 Ferrous Sulfate 325 Mg Tab PO 08/28/24 08:59 325 mg DAILY TAWNY Administration Fludrocortisone Acetate 0.1 mg 07/29/24 09:00 08/04/24 08:30 Fludrocortisone Acetate 0.1 Mg Tab PO 08/28/24 08:59 0.1 mg DAILY TAWNY Administration Fluticasone Furoate 1 puffs 07/29/24 09:00 08/04/24 08:32 Fluticasone Furoate 200mcg 14 Puffs/Inhaler INH 08/28/24 08:59 1 puffs DAILY TAWNY Administration Hydrocortisone 10 mg 07/29/24 15:00 08/03/24 16:20 Hydrocortisone 10 Mg Tab PO 08/28/24 14:59 10 mg 1500 TAWNY Administration Hydrocortisone 20 mg 07/29/24 09:00 08/04/24 08:29 Hydrocortisone 10 Mg Tab PO 08/28/24 08:59 20 mg QAM TAWNY Administration Lactobacillus Acidophilus 1,250 mg 07/29/24 09:00 08/04/24 08:28 Advanced Probiotic 625 Mg Capsule PO 08/28/24 08:59 1,250 mg DAILY TAWNY Administration Lidocaine 2 patch 07/29/24 09:00 08/04/24 08:33 Lidocaine 5% 1 Patch TD 08/28/24 08:59 2 patch DAILY TAWNY Administration Memantine 10 mg 07/28/24 23:00 08/04/24 08:30 Memantine Hcl 10 Mg Tab PO 08/27/24 22:59 10 mg BID TAWNY Administration Methocarbamol 500 mg 07/29/24 09:00 08/04/24 08:28 Methocarbamol 500 Mg Tablet PO 08/28/24 08:59 500 mg DAILY TAWNY Administration Miscellaneous 1 each 07/29/24 21:00 08/03/24 20:02 Remove Lidoderm Patch N/A 08/28/24 20:59 Not Given DAILY@2100 [facility] Multivitamins/Minerals 1 tab 07/29/24 09:00 08/04/24 08:30 Cerovite Adv Formula Tab PO 08/28/24 08:59 1 tab DAILY TAWNY Administration Nystatin 1 appln 07/29/24 09:00 08/04/24 08:31 Nystatin Powder 15gm Btl EXT 08/28/24 08:59 1 appln BID TAWNY Administration Nystatin 5 ml 08/01/24 04:10 08/04/24 08:29 Nystatin Susp 500,000 U/5 Ml Udc PO 08/11/24 04:09 5 ml QID TAWNY Administration Oxybutynin Chloride 5 mg 07/29/24 09:00 08/04/24 08:30 Oxybutynin Chloride Xl 5 Mg Tabcr PO 08/28/24 08:59 5 mg DAILY TAWNY Administration Pantoprazole Sodium 40 mg 07/29/24 09:00 08/04/24 08:28 Pantoprazole 40 Mg Tab PO 08/28/24 08:59 40 mg DAILY TAWNY Administration Sennosides 8.6 mg 07/28/24 22:50 08/01/24 08:33 Senna 8.6 Mg Tab PO 08/27/24 22:49 8.6 mg DAILY PRN Administration Constipation Umeclidinium/Vilanterol 1 puffs 07/29/24 09:00 08/04/24 08:29 Umeclidinium/Vilanterol 62.5/25mcg 7 Puffs/Inhaler INH 08/28/24 08:59 1 puffs DAILY TAWNY Administration Vibegron 75 mg 07/29/24 09:00 08/04/24 08:29 Vibegron 75 Mg Tab PO 08/28/24 08:59 75 mg DAILY TAWNY Administration Vitamin D 125 mcg 07/29/24 09:00 08/04/24 08:28 Cholecalciferol 125 Mcg (5,000 Units) Tab PO 08/28/24 08:59 125 mcg DAILY TAWNY Administration (4) Stage 3 chronic kidney disease Chronic kidney disease stage 3 subtype: unspecified whether 3a or 3b Poli lified Code(s): N18.30 - Chronic kidney disease, stage 3 unspecified
[2024-08-04] MEDS: MELATONIN 3 MG TAB PO SCH (20:54)
[2024-08-04] MEDS ORDERED: MELATONIN 3 MG TAB PO SCH (21:00)
[2024-08-05 07:14] LABS: Hematocrit (blood only) 33.3 % (42.0-52.0); Hemoglobin 10.4 g/dl (14.0-18.0); Mean Corpuscular Hemoglobin 27.5 pg (25.0-34.0); Mean Corpuscular Hgb Conc 31.2 g/dL (32.0-36.0); Mean Corpuscular Volume 88.1 fL (80.0-100.0); Mean Platelet Volume 8.4 fL (9.4-12.4); Platelet Count 280 K/uL (130-400); RDW Coefficient of Variation 16.2 % (11.5-14.5); RDW Standard Deviation 50.9 fL (36.4-46.3); Red Blood Count 3.78 M/uL (4.70-6.10); White Blood Count 7.33 K/ul (4.8-10.8)
[2024-08-05 07:32] LABS: BUN Creatinine Ratio 14.2 (10-20); Calcium 8.6 mg/dl (8.6-10.3); Creatinine Clr Calc Pharmacy 75.1 ml/min; Potassium 3.7 mmol/L (3.5-5.1)
--- NOTE | 2024-08-05 16:16 | Hospitalist Progress Note ---
Date of Service August 05, 2024 Assessment & Plan (1) Chronic indwelling Devlin catheter: (2) Hx of prostatic malignancy: (3) Orthostatic hypotension: (4) Stage 3 chronic kidney disease: (5) Adrenal insufficiency: Plan Mr. 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 There was concern for recurrent UTI for which patient treated with 5 days empiric coverage. ID not suspicious cultures suggestive of CAUTI. but rather bacteruria Discussed with Ivet that patient has multiple comorbidities and frequent hospitalizations, Reviewed OSH notes: -Patient discharged from [facility] 07/21 [address] followed up with Dr. Batista on 07/24: abilify discontinued at that visit, continued on lexapro Will continue Abilify while admitted 2/2 delirium and anxiety. Patient doing much better this morning mood wade. 08/04 Briefly discussed prognosis of oncologic status with Dr. Gramajo, who notes that oncologically patient continues with surveillance and no evidence of active disease. It is noted that patient has reported decline over last year. Discussed with Ivet that patient has multiple comorbidities that are progressive and that "normal" may not be what she is anticipating. Plan for likely SNF; however, will be Wednesday prior to discharge No current changes to med management #Unwitnessed Fall #History of recurrent CAUTI #BPH/prostate cancer/history of bladder cancer status post surgery patient with chronic indwelling Devlin Patient with multiple chronic conditions likely contributing to falls PT OT eval Continue to monitor tsh last collected 03/2024 at 2.11, repeat 2.78 08/03 #Chronic hematuria #Acute on chronic anemia #Iron Deficiency Anemia hemoglobin of 9.5 stable Continue home iron, B12 supplements Anemia panel noting low normal iron levels, supplemented b12 and folate levels -Iron level improved compared to prior levels Continue to monitor H&H #Failure to thrive #Malnutrition patient's noting decreased p.o. 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 #History of prostate cancer, s/p EBRT 2018 #Radiation cystitis s/p keytruda c/b myocarditis due for cystoscopy in 08/2024 Chronic Medical Problems: Hypertension secondary to illness, currently not on maintenance medications due to history orthostatic hypotension valvular heart disease (moderate , mild AR) hypertension, stable at this time history PE DVT status post IVC filter placement hx Keytruda myocarditis/history of adrenal insufficiency on chronic steroid/fludrocortisone Rx Underlying pulmonary hypertension, hx bronchial asthma/COPD, ANDRZEJ (not currently using CPAP machine due to need for new orders as per PCP notes) Mild cognitive impairment, patient mentating well on regimen Functional disability/ambulatory dysfunction, PT/OT- will likely need acute rehab placement once more continue other home meds as ordered Diet: HH DVT prophylaxis: SCDs Re: Hematuria Full code Dispo: SNF likely wednesday Admission and Anticipated Discharge Date Admission Date: July 28, 2024 Subjective NAEO denies any new concerns conversational and laughing at bedside with Ivet Physical Exam Constitutional: WD/WN, vitals as above Respiratory: normal respiratory effort, lungs clear to auscultation Cardiovascular: RRR, no murmur, no edema Neurologic: PERRL, EOMI, accommodation nl, no face palsy, no dysarthria Results & Data Results & Data Vital Signs (Past 12 Hours) Vital Signs Temp Pulse Pulse Resp BP Pulse Ox O2 Del Method 08/05/24 15:07 36.5 C 71 18 119/73 99 Room Air 08/05/24 14:00 71 08/05/24 11:27 36.5 C 68 18 121/73 96 Room Air 08/05/24 08:00 Room Air 08/05/24 07:33 36.5 C 64 18 122/69 95 Room Air 08/05/24 07:00 63 Laboratory Results Short CBC 08/05/24 Range/Units 06:18 WBC 7.33 (4.8-10.8) K/ul Hgb 10.4 L (14.0-18.0) g/dl Hct 33.3 L (42.0-52.0) % Plt Count 280 (130-400) K/uL BMP 08/05/24 06:18 Sodium 141 Potassium 3.7 Chloride 108 H Carbon Dioxide 26 BUN 15 Creatinine 1.06 Glucose 86 Calcium 8.6 Medications Administered Home Medications Medication Instructions Recorded Confirmed Last Taken acetaminophen 325 mg tablet 650 mg (2 x 325 mg) PO Q4H PRN 06/08/24 07/28/24 Unknown fever or pain #30 tabs albuterol sulfate 90 mcg/actuation 2 puff inhalation Q4H PRN 06/08/24 07/28/24 Unknown aerosol inhaler Shortness Of Breath Or Wheezing #16 grams ascorbic acid (vitamin C) 1,000 mg 1,000 mg PO DAILY #30 tabs 06/08/24 07/28/24 Unknown tablet aspirin 81 mg tablet,delayed 81 mg PO DAILY #30 tabs 06/08/24 07/28/24 Unknown release cholecalciferol (vitamin D3) 125 125 mcg PO DAILY #30 tabs 06/08/24 07/28/24 Unknown mcg (5,000 unit) tablet (Vitamin D3) cyanocobalamin (vitamin B-12) 1,000 mcg PO DAILY #30 tabs 06/08/24 07/28/24 Unknown 1,000 mcg tablet epinephrine 0.3 mg/0.3 mL 0.3 mg (0.3 mL) IM UD PRN 06/08/24 07/28/24 Unknown injection, auto-injector Anaphylaxis #3 ea ferrous sulfate 325 mg (65 mg 325 mg PO DAILY #30 tabs 06/08/24 07/28/24 Unknown iron) tablet,delayed release fludrocortisone 0.1 mg tablet 0.1 mg PO DAILY #30 tabs 06/08/24 07/28/24 Unknown fluticasone fur. 200 mcg-umeclid 1 inh inhalation DAILY #1 ea 06/08/24 07/28/24 Unknown 62.5 mcg-vilant 25 mcg inhalat.powder (Trelegy Ellipta) lidocaine 5 % topical patch 2 patch transdermal DAILY #20 ea 06/08/24 07/28/24 Unknown magnesium chloride 64 mg 64 mg PO BID #60 tabs 06/08/24 07/28/24 Unknown (magnesium chloride) tablet,delayed release memantine 10 mg tablet 10 mg PO BID #60 tabs 06/08/24 07/28/24 Unknown multivitamin with minerals-folic 1 tab PO DAILY #30 tabs 06/08/24 07/28/24 Unknown acid 200 mcg chewable tablet (Multivitamin Gummies) nystatin 100,000 unit/gram topical 1 applic EXT BID #30 grams 06/08/24 07/28/24 Unknown powder (Nystop) omeprazole 20 mg capsule,delayed 20 mg PO DAILY #30 caps 06/08/24 07/28/24 Unknown release solifenacin 5 mg tablet 5 mg PO DAILY #30 tabs 06/08/24 07/28/24 Unknown L.acidop,casei,lactis,rham-B.lact,sienna 1 cap PO DAILY 30 days #30 caps 07/07/24 07/28/24 Unknown 625 mg (10 billion cell) capsule (Advanced Probiotic) aripiprazole 5 mg tablet (Abilify) 2.5 mg (1/2 x 5 mg) PO QAM 30 days 07/07/24 07/28/24 Unknown #15 tabs escitalopram oxalate 10 mg tablet 5 mg (1/2 x 10 mg) PO QAM 30 days 07/07/24 07/28/24 Unknown #15 tabs hydrocortisone 10 mg tablet 10 mg PO 1500 #0 tabs 07/07/24 07/28/24 Unknown (Cortef) hydrocortisone 10 mg tablet 20 mg (2 x 10 mg) PO QAM #0 tabs 07/07/24 07/28/24 Unknown (Cortef) methocarbamol 500 mg tablet 500 mg PO DAILY 07/28/24 07/28/24 Unknown mirabegron 25 mg tablet,extended 25 mg PO DAILY 07/28/24 07/28/24 Unknown release 24 hr (Myrbetriq) sennosides 8.6 mg tablet (senna) 8.6 mg PO DAILY PRN Constipation 07/28/24 07/28/24 Unknown Active Medications Generic Name Dose Route Start Last Admin Trade Name Freq PRN Reason Stop Dose Admin Acetaminophen 650 mg 07/28/24 22:49 08/04/24 20:59 Acetaminophen 325 Mg Tab PO 08/27/24 22:48 650 mg QID PRN Administration pain/fever Aripiprazole 2.5 mg 07/29/24 09:00 08/05/24 09:09 Aripiprazole 5 Mg Tab PO 08/28/24 08:59 2.5 mg QAM TAWNY Administration Cyanocobalamin 1,000 mcg 07/29/24 09:00 08/05/24 09:08 Cyanocobalamin (B-12) 500 Mcg Tablet PO 08/28/24 08:59 1,000 mcg DAILY TAWNY Administration Escitalopram Oxalate 5 mg 07/29/24 09:00 08/05/24 09:11 Escitalopram Oxalate 10 Mg Tab PO 08/28/24 08:59 5 mg QAM TAWNY Administration Ferrous Sulfate 325 mg 07/29/24 09:00 08/05/24 09:09 Ferrous Sulfate 325 Mg Tab PO 08/28/24 08:59 325 mg DAILY TAWNY Administration Fludrocortisone Acetate 0.1 mg 07/29/24 09:00 08/05/24 09:09 Fludrocortisone Acetate 0.1 Mg Tab PO 08/28/24 08:59 0.1 mg DAILY TAWNY Administration Fluticasone Furoate 1 puffs 07/29/24 09:00 08/05/24 09:04 Fluticasone Furoate 200mcg 14 Puffs/Inhaler INH 08/28/24 08:59 1 puffs DAILY TAWNY Administration Hydrocortisone 10 mg 07/29/24 15:00 08/05/24 15:10 Hydrocortisone 10 Mg Tab PO 08/28/24 14:59 10 mg 1500 TAWNY Administration Hydrocortisone 20 mg 07/29/24 09:00 08/05/24 09:09 Hydrocortisone 10 Mg Tab PO 08/28/24 08:59 20 mg QAM TAWNY Administration Lactobacillus Acidophilus 1,250 mg 07/29/24 09:00 08/05/24 09:07 Advanced Probiotic 625 Mg Capsule PO 08/28/24 08:59 1,250 mg DAILY TAWNY Administration Lidocaine 2 patch 07/29/24 09:00 08/05/24 09:07 Lidocaine 5% 1 Patch TD 08/28/24 08:59 2 patch DAILY TAWNY Administration Melatonin 3 mg 08/04/24 19:00 08/04/24 20:54 Melatonin 3 Mg Tab PO 09/03/24 18:59 3 mg 1900 TAWNY Administration Memantine 10 mg 07/28/24 23:00 08/05/24 09:08 Memantine Hcl 10 Mg Tab PO 08/27/24 22:59 10 mg BID TAWNY Administration Methocarbamol 500 mg 07/29/24 09:00 08/05/24 09:10 Methocarbamol 500 Mg Tablet PO 08/28/24 08:59 500 mg DAILY TAWNY Administration Miscellaneous 1 each 07/29/24 21:00 08/04/24 21:20 Remove Lidoderm Patch N/A 08/28/24 20:59 1 each DAILY@2100 TAWNY Administration Multivitamins/Minerals 1 tab 07/29/24 09:00 08/05/24 09:09 Cerovite Adv Formula Tab PO 08/28/24 08:59 1 tab DAILY TAWNY Administration Nystatin 1 appln 07/29/24 09:00 08/05/24 09:10 Nystatin Powder 15gm Btl EXT 08/28/24 08:59 1 appln BID TAWNY Administration Nystatin 5 ml 08/01/24 04:10 08/05/24 12:37 Nystatin Susp 500,000 U/5 Ml Udc PO 08/11/24 04:09 5 ml QID TAWNY Administration Oxybutynin Chloride 5 mg 07/29/24 09:00 08/05/24 09:09 Oxybutynin Chloride Xl 5 Mg Tabcr PO 08/28/24 08:59 5 mg DAILY TAWNY Administration Pantoprazole Sodium 40 mg 07/29/24 09:00 08/05/24 09:08 Pantoprazole 40 Mg Tab PO 08/28/24 08:59 40 mg DAILY TAWNY Administration Sennosides 8.6 mg 07/28/24 22:50 08/01/24 08:33 Senna 8.6 Mg Tab PO 08/27/24 22:49 8.6 mg DAILY PRN Administration Constipation Umeclidinium/Vilanterol 1 puffs 07/29/24 09:00 08/05/24 09:04 Umeclidinium/Vilanterol 62.5/25mcg 7 Puffs/Inhaler INH 08/28/24 08:59 1 puffs DAILY TAWNY Administration Vibegron 75 mg 07/29/24 09:00 08/05/24 09:09 Vibegron 75 Mg Tab PO 08/28/24 08:59 75 mg DAILY TAWNY Administration Vitamin D 125 mcg 07/29/24 09:00 08/05/24 09:10 Cholecalciferol 125 Mcg (5,000 Units) Tab PO 08/28/24 08:59 125 mcg DAILY TAWNY Administration (4) Stage 3 chronic kidney disease Chronic kidney disease stage 3 subtype: unspecified whether 3a or 3b Qualified Code(s): N18.30 - Chronic kidney disease, stage 3 unspecified
--- NOTE | 2024-08-06 11:34 | Hospitalist Progress Note ---
Date of Service August 06, 2024 Assessment & Plan (1) Chronic indwelling Devlin catheter: (2) Hx of prostatic malignancy: (3) Orthostatic hypotension: (4) Stage 3 chronic kidney disease: (5) Adrenal insufficiency: Plan Mr. 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 There was concern for recurrent UTI for which patient treated with 5 days empiric coverage. ID not suspicious cultures suggestive of CAUTI. but rather expected bacteruria 08/04 Briefly discussed prognosis of oncologic status with Dr. Gramajo, who notes that oncologically patient continues with surveillance and no evidence of active disease. It is noted that patient has reported decline over last year. Discussed with Ivet that patient has multiple comorbidities that are progressive and that "normal" may not be what she is anticipating. Plan for likely SNF; however, will be Wednesday prior to discharge No current changes to med management #Unwitnessed Fall #History of recurrent CAUTI #BPH/prostate cancer/history of bladder cancer status post surgery patient with chronic indwelling Devlin Patient with multiple chronic conditions likely contributing to falls PT OT eval Continue to monitor tsh last collected 03/2024 at 2.11, repeat 2.78 08/03 #Chronic hematuria #Acute on chronic anemia #Iron Deficiency Anemia hemoglobin of 9.5 stable Continue home iron, B12 supplements Anemia panel noting low normal iron levels, supplemented b12 and folate levels -Iron level improved compared to prior levels #Failure to thrive #Malnutrition patient's noting decreased p.o. 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 #History of prostate cancer, s/p EBRT 2017 #Radiation cystitis s/p keytruda c/b myocarditis due for cystoscopy in 08/2024 Chronic Medical Problems: Hypertension secondary to illness, currently not on maintenance medications due to history orthostatic hypotension valvular heart disease (moderate , mild AR) hypertension, stable at this time history PE DVT status post IVC filter placement hx Keytruda myocarditis/history of adrenal insufficiency on chronic steroid/fludrocortisone Rx Underlying pulmonary hypertension, hx bronchial asthma/COPD, ANDRZEJ (not currently using CPAP machine due to need for new orders as per PCP notes) Mild cognitive impairment, patient mentating well on regimen Functional disability/ambulatory dysfunction, PT/OT- will likely need acute rehab placement once more continue other home meds as ordered Diet: HH DVT prophylaxis: SCDs Re: Hematuria Full code Dispo: SNF likely wednesday Admission and Anticipated Discharge Date Admission Date: July 28, 2024 Subjective NAEO working with resistance band at bedside Denies any new acute concerns or other issues Physical Exam Constitutional: WD/WN, vitals as above Respiratory: normal respiratory effort, lungs clear to auscultation Cardiovascular: RRR, no murmur, no edema Gastrointestinal (Abdomen): normal bowel sounds, soft, nontender, no hepatosplenomegaly Neurologic: PERRL, EOMI, accommodation nl, no face palsy, no dysarthria Results & Data Results & Data Vital Signs (Past 12 Hours) Vital Signs Temp Pulse Pulse Resp BP Pulse Ox Pulse Ox 08/06/24 11:15 36.4 C L 68 18 120/70 94 08/06/24 08:00 08/06/24 07:31 36.5 C 63 16 151/77 H 95 08/06/24 06:52 61 08/06/24 03:18 36.9 C 65 16 136/73 91 08/06/24 01:00 97 O2 Del Method O2 Del Method 08/06/24 11:15 Room Air 08/06/24 08:00 Room Air 08/06/24 07:31 Room Air 08/06/24 06:52 08/06/24 03:18 Room Air 08/06/24 01:00 Room Air Medications Administered Home Medications Medication Instructions Recorded Confirmed Last Taken acetaminophen 325 mg tablet 650 mg (2 x 325 mg) PO Q4H PRN 06/08/24 07/28/24 Unknown fever or pain #30 tabs albuterol sulfate 90 mcg/actuation 2 puff inhalation Q4H PRN 06/08/24 07/28/24 Unknown aerosol inhaler Shortness Of Breath Or Wheezing #16 grams ascorbic acid (vitamin C) 1,000 mg 1,000 mg PO DAILY #30 tabs 06/08/24 07/28/24 Unknown tablet aspirin 81 mg tablet,delayed 81 mg PO DAILY #30 tabs 06/08/24 07/28/24 Unknown release cholecalciferol (vitamin D3) 125 125 mcg PO DAILY #30 tabs 06/08/24 07/28/24 Unknown mcg (5,000 unit) tablet (Vitamin D3) cyanocobalamin (vitamin B-12) 1,000 mcg PO DAILY #30 tabs 06/08/24 07/28/24 Unknown 1,000 mcg tablet epinephrine 0.3 mg/0.3 mL 0.3 mg (0.3 mL) IM UD PRN 06/08/24 07/28/24 Unknown injection, auto-injector Anaphylaxis #3 ea ferrous sulfate 325 mg (65 mg 325 mg PO DAILY #30 tabs 06/08/24 07/28/24 Unknown iron) tablet,delayed release fludrocortisone 0.1 mg tablet 0.1 mg PO DAILY #30 tabs 06/08/24 07/28/24 Unknown fluticasone fur. 200 mcg-umeclid 1 inh inhalation DAILY #1 ea 06/08/24 07/28/24 Unknown 62.5 mcg-vilant 25 mcg inhalat.powder (Trelegy Ellipta) lidocaine 5 % topical patch 2 patch transdermal DAILY #20 ea 06/08/24 07/28/24 Unknown magnesium chloride 64 mg 64 mg PO BID #60 tabs 06/08/24 07/28/24 Unknown (magnesium chloride) tablet,delayed release memantine 10 mg tablet 10 mg PO BID #60 tabs 06/08/24 07/28/24 Unknown multivitamin with minerals-folic 1 tab PO DAILY #30 tabs 06/08/24 07/28/24 Unknown acid 200 mcg chewable tablet (Multivitamin Gummies) nystatin 100,000 unit/gram topical 1 applic EXT BID #30 grams 06/08/24 07/28/24 Unknown powder (Nystop) omeprazole 20 mg capsule,delayed 20 mg PO DAILY #30 caps 06/08/24 07/28/24 Unknown release solifenacin 5 mg tablet 5 mg PO DAILY #30 tabs 06/08/24 07/28/24 Unknown L.acidop,casei,lactis,rham-B.lact,sienna 1 cap PO DAILY 30 days #30 caps 07/07/24 07/28/24 Unknown 625 mg (10 billion cell) capsule (Advanced Probiotic) aripiprazole 5 mg tablet (Abilify) 2.5 mg (1/2 x 5 mg) PO QAM 30 days 07/07/24 07/28/24 Unknown #15 tabs escitalopram oxalate 10 mg tablet 5 mg (1/2 x 10 mg) PO QAM 30 days 07/07/24 07/28/24 Unknown #15 tabs hydrocortisone 10 mg tablet 10 mg PO 1500 #0 tabs 07/07/24 07/28/24 Unknown (Cortef) hydrocortisone 10 mg tablet 20 mg (2 x 10 mg) PO QAM #0 tabs 07/07/24 07/28/24 Unknown (Cortef) methocarbamol 500 mg tablet 500 mg PO DAILY 07/28/24 07/28/24 Unknown mirabegron 25 mg tablet,extended 25 mg PO DAILY 07/28/24 07/28/24 Unknown release 24 hr (Myrbetriq) sennosides 8.6 mg tablet (senna) 8.6 mg PO DAILY PRN Constipation 07/28/24 07/28/24 Unknown Active Medications Generic Name Dose Route Start Last Admin Trade Name Freq PRN Reason Stop Dose Admin Acetaminophen 650 mg 07/28/24 22:49 08/05/24 17:29 Acetaminophen 325 Mg Tab PO 08/27/24 22:48 650 mg QID PRN Administration pain/fever Aripiprazole 2.5 mg 08/06/24 11:00 08/06/24 11:36 Aripiprazole 10 Mg Tab PO 09/05/24 10:59 2.5 mg QAM TAWNY Administration Protocol Cyanocobalamin 1,000 mcg 07/29/24 09:00 08/06/24 08:21 Cyanocobalamin (B-12) 500 Mcg Tablet PO 08/28/24 08:59 1,000 mcg DAILY TAWNY Administration Escitalopram Oxalate 5 mg 07/29/24 09:00 08/06/24 08:22 Escitalopram Oxalate 10 Mg Tab PO 08/28/24 08:59 5 mg QAM TAWNY Administration Ferrous Sulfate 325 mg 07/29/24 09:00 08/06/24 08:22 Ferrous Sulfate 325 Mg Tab PO 08/28/24 08:59 325 mg DAILY TAWNY Administration Fludrocortisone Acetate 0.1 mg 07/29/24 09:00 08/06/24 08:22 Fludrocortisone Acetate 0.1 Mg Tab PO 08/28/24 08:59 0.1 mg DAILY TAWNY Administration Fluticasone Furoate 1 puffs 07/29/24 09:00 08/06/24 08:21 Fluticasone Furoate 200mcg 14 Puffs/Inhaler INH 08/28/24 08:59 1 puffs DAILY TAWNY Administration Hydrocortisone 10 mg 07/29/24 15:00 08/06/24 15:08 Hydrocortisone 10 Mg Tab PO 08/28/24 14:59 10 mg 1500 TAWNY Administration Hydrocortisone 20 mg 07/29/24 09:00 08/06/24 08:23 Hydrocortisone 10 Mg Tab PO 08/28/24 08:59 20 mg QAM TAWNY Administration Lactobacillus Acidophilus 1,250 mg 07/29/24 09:00 08/06/24 08:22 Advanced Probiotic 625 Mg Capsule PO 08/28/24 08:59 1,250 mg DAILY TAWNY Administration Lidocaine 2 patch 07/29/24 09:00 08/06/24 08:23 Lidocaine 5% 1 Patch TD 08/28/24 08:59 2 patch DAILY TAWNY Administration Melatonin 3 mg 08/04/24 19:00 08/05/24 20:05 Melatonin 3 Mg Tab PO 09/03/24 18:59 3 mg 1900 TAWNY Administration Memantine 10 mg 07/28/24 23:00 08/06/24 08:23 Memantine Hcl 10 Mg Tab PO 08/27/24 22:59 10 mg BID TAWNY Administration Methocarbamol 500 mg 07/29/24 09:00 08/06/24 08:22 Methocarbamol 500 Mg Tablet PO 08/28/24 08:59 500 mg DAILY TAWNY Administration Miscellaneous 1 each 07/29/24 21:00 08/05/24 20:07 Remove Lidoderm Patch N/A 08/28/24 20:59 1 each DAILY@2100 TAWNY Administration Multivitamins/Minerals 1 tab 07/29/24 09:00 08/06/24 08:22 Cerovite Adv Formula Tab PO 08/28/24 08:59 1 tab DAILY TAWNY Administration Nystatin 1 appln 07/29/24 09:00 08/06/24 08:24 Nystatin Powder 15gm Btl EXT 08/28/24 08:59 1 appln BID TAWNY Administration Nystatin 5 ml 08/01/24 04:10 08/06/24 12:36 Nystatin Susp 500,000 U/5 Ml Udc PO 08/11/24 04:09 5 ml QID TAWNY Administration Oxybutynin Chloride 5 mg 07/29/24 09:00 08/06/24 08:22 Oxybutynin Chloride Xl 5 Mg Tabcr PO 08/28/24 08:59 5 mg DAILY TAWNY Administration Pantoprazole Sodium 40 mg 07/29/24 09:00 08/06/24 08:21 Pantoprazole 40 Mg Tab PO 08/28/24 08:59 40 mg DAILY TAWNY Administration Sennosides 8.6 mg 07/28/24 22:50 08/01/24 08:33 Senna 8.6 Mg Tab PO 08/27/24 22:49 8.6 mg DAILY PRN Administration Constipation Umeclidinium/Vilanterol 1 puffs 07/29/24 09:00 08/06/24 08:21 Umeclidinium/Vilanterol 62.5/25mcg 7 Puffs/Inhaler INH 08/28/24 08:59 1 puffs DAILY TAWNY Administration Vibegron 75 mg 07/29/24 09:00 08/06/24 08:22 Vibegron 75 Mg Tab PO 08/28/24 08:59 75 mg DAILY TAWNY Administration Vitamin D 125 mcg 07/29/24 09:00 08/06/24 08:22 Cholecalciferol 125 Mcg (5,000 Units) Tab PO 08/28/24 08:59 125 mcg DAILY TAWNY Administration (4) Stage 3 chronic kidney disease Chronic kidney disease stage 3 subtype: unspecified whether 3a or 3b Qualified Code(s): N18.30 - Chronic kidney disease, stage 3 unspecified
[2024-08-06] MEDS: ARIPiprazole 10 MG TAB PO SCH (11:36)
[2024-08-07] MEDS: LOPERAMIDE HCL 2 MG CAP PO STA (06:30)
[2024-08-07 10:42] LABS: Hematocrit (blood only) 34.3 % (42.0-52.0); Hemoglobin 10.6 g/dl (14.0-18.0); Mean Corpuscular Hemoglobin 27.5 pg (25.0-34.0); Mean Corpuscular Hgb Conc 30.9 g/dL (32.0-36.0); Mean Corpuscular Volume 89.1 fL (80.0-100.0); Mean Platelet Volume 8.4 fL (9.4-12.4); Platelet Count 247 K/uL (130-400); Red Blood Count 3.85 M/uL (4.70-6.10); White Blood Count 8.83 K/ul (4.8-10.8)
[2024-08-07 10:58] LABS: BUN Creatinine Ratio 12.3 (10-20); Calcium 8.7 mg/dl (8.6-10.3); Creatinine Clr Calc Pharmacy 65.2 ml/min; Potassium 3.2 mmol/L (3.5-5.1)
--- NOTE | 2024-08-07 11:24 | XRay Report ---
[facility] CLINICAL HISTORY: Abdominal pain. COMPARISON STUDY: CT of the abdomen and pelvis June 01, 2024. FINDINGS: IVC filter is incidentally noted. The bowel gas pattern is normal. No urinary calculi ident ified. The amount of stool is within normal limits. Cortical thickening and trabecular coarsening wit hin the right hemipelvis suggests Paget's disease of the bone. This is unchanged. IMPRESSION: No evidence for a bowel obstruction. ACT 112: Negative or not required by law. Electronically signed by: Boris Keys M.D. 08/07/2024 11:23 AM
[2024-08-07 15:11] LABS: Adenovirus F 40/41 PCR Not Detected (NotDetected); Astrovirus PCR Not Detected (NotDetected); Campylobacter PCR Not Detected (NotDetected); Cryptosporidium PCR Not Detected (NotDetected); Cyclospora cayetanensis PCR Not Detected (NotDetected); Entamoeba histolytica PCR Not Detected (NotDetected); Enteroaggregative E.coli(EAEC) Not Detected (NotDetected); Enteropathogenic E.coli (EPEC) Not Detected (NotDetected); Enterotoxigenic E.coli (ETEC) Not Detected (NotDetected); Giardia lamblia PCR Not Detected (NotDetected); Norovirus GI/GII PCR Not Detected (NotDetected); Plesiomonas shigelloides PCR Not Detected (NotDetected); Rotavirus A PCR Not Detected (NotDetected); Salmonella PCR Not Detected (NotDetected); Sapovirus PCR Not Detected (NotDetected); Shiga-like Toxin E.coli (STEC) Not Detected (NotDetected); Shigella/Enteroinvasive E.coli Not Detected (NotDetected); Vibrio cholerae PCR Not Detected (NotDetected); Vibrio species PCR Not Detected (NotDetected); Yersinia enterocolitica PCR Not Detected (NotDetected)
--- NOTE | 2024-08-07 15:11 | Hospitalist Progress Note ---
Date of Service August 07, 2024 Assessment & Plan (1) Chronic indwelling Devlin catheter: (2) Hx of prostatic malignancy: (3) Orthostatic hypotension: (4) Stage 3 chronic kidney disease: (5) Adrenal insufficiency: Plan Mr. 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 There was concern for recurrent UTI for which patient treated with 5 days empiric coverage. ID not suspicious cultures suggestive of CAUTI. but rather expected bacteruria 08/04 Briefly discussed prognosis of oncologic status with Dr. Gramajo, who notes that oncologically patient continues with surveillance and no evidence of active disease. It is noted that patient has reported decline over last year. Discussed with Ivet that patient has multiple comorbidities that are progressive and that "normal" may not be what she is anticipating. Plan for likely SNF; however, [facility] is out of network Episodes of diarrhea noted; c diff negative, no abdominal pain reported during episodes, still eating, sx control with loperamide Awaiting next dispo steps contingent on insurance #Diarrhea c diff negative stool pcr pending loperamide prn #Unwitnessed Fall #History of recurrent CAUTI #BPH/prostate cancer/history of bladder cancer status post surgery patient with chronic indwelling Devlin Patient with multiple chronic conditions likely contributing to falls PT OT eval Continue to monitor tsh last collected 03/2024 at 2.11, repeat 2.78 08/03 #Chronic hematuria #Acute on chronic anemia #Iron Deficiency Anemia hemoglobin of 9.5 stable Continue home iron, B12 supplements Anemia panel noting low normal iron levels, supplemented b12 and folate levels -Iron level improved compared to prior levels #Failure to thrive #Malnutrition patient's noting decreased p.o. 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 #History of prostate cancer, s/p EBRT 2017 #Radiation cystitis s/p keytruda c/b myocarditis due for cystoscopy in 08/2024 Chronic Medical Problems: Hypertension secondary to illness, currently not on maintenance medications due to history orthostatic hypotension valvular heart disease (moderate , mild AR) hypertension, stable at this time history PE DVT status post IVC filter placement hx Keytruda myocarditis/history of adrenal insufficiency on chronic steroid/fludrocortisone Rx Underlying pulmonary hypertension, hx bronchial asthma/COPD, ANDRZEJ (not currently using CPAP machine due to need for new orders as per PCP notes) Mild cognitive impairment, patient mentating well on regimen Functional disability/ambulatory dysfunction, PT/OT- will likely need acute rehab placement once more continue other home meds as ordered Diet: HH DVT prophylaxis: SCDs Re: Hematuria Full code Dispo: SNF likely wednesday Admission and Anticipated Discharge Date Admission Date: July 28, 2024 Subjective MICHAEL Reports feeling fine, but then noted confusion in afternoon where he was endorsing vague inconsistent symptoms episodes of delirium as day progresses Physical Exam Constitutional: WD/WN, vitals as above Respiratory: normal respiratory effort, lungs clear to auscultation Cardiovascular: RRR, no murmur, no edema Gastrointestinal (Abdomen): normal bowel sounds, soft, nontender, no hepatosplenomegaly Results & Data Results & Data Vital Signs (Past 12 Hours) Vital Signs Temp Pulse Pulse Resp BP BP Pulse Ox 08/07/24 14:00 71 08/07/24 11:15 36.7 C 70 18 130/72 95 08/07/24 10:45 36.6 C 69 16 119/73 126/76 94 08/07/24 07:29 36.6 C 69 16 126/76 94 08/07/24 07:00 08/07/24 07:00 68 08/07/24 03:37 36.6 C 70 18 119/73 95 O2 Del Method 08/07/24 14:00 08/07/24 11:15 Room Air 08/07/24 10:45 08/07/24 07:29 Room Air 08/07/24 07:00 Room Air 08/07/24 07:00 08/07/24 03:37 Room Air Laboratory Results Short CBC 08/07/24 Range/Units 10:25 WBC 8.83 (4.8-10.8) K/ul Hgb 10.6 L (14.0-18.0) g/dl Hct 34.3 L (42.0-52.0) % Plt Count 247 (130-400) K/uL BMP 08/07/24 10:25 Sodium 141 Potassium 3.2 L Chloride 107 Carbon Dioxide 28 BUN 15 Creatinine 1.22 Glucose 107 H Calcium 8.7 Medications Administered Home Medications Medication Instructions Recorded Confirmed Last Taken acetaminophen 325 mg tablet 650 mg (2 x 325 mg) PO Q4H PRN 06/08/24 07/28/24 Unknown fever or pain #30 tabs albuterol sulfate 90 mcg/actuation 2 puff inhalation Q4H PRN 06/08/24 07/28/24 Unknown aerosol inhaler Shortness Of Breath Or Wheezing #16 grams ascorbic acid (vitamin C) 1,000 mg 1,000 mg PO DAILY #30 tabs 06/08/24 07/28/24 Unknown tablet aspirin 81 mg tablet,delayed 81 mg PO DAILY #30 tabs 06/08/24 07/28/24 Unknown release cholecalciferol (vitamin D3) 125 125 mcg PO DAILY #30 tabs 06/08/24 07/28/24 Unknown mcg (5,000 unit) tablet (Vitamin D3) cyanocobalamin (vitamin B-12) 1,000 mcg PO DAILY #30 tabs 06/08/24 07/28/24 Unknown 1,000 mcg tablet epinephrine 0.3 mg/0.3 mL 0.3 mg (0.3 mL) IM UD PRN 06/08/24 07/28/24 Unknown injection, auto-injector Anaphylaxis #3 ea ferrous sulfate 325 mg (65 mg 325 mg PO DAILY #30 tabs 06/08/24 07/28/24 Unknown iron) tablet,delayed release fludrocortisone 0.1 mg tablet 0.1 mg PO DAILY #30 tabs 06/08/24 07/28/24 Unknown fluticasone fur. 200 mcg-umeclid 1 inh inhalation DAILY #1 ea 06/08/24 07/28/24 Unknown 62.5 mcg-vilant 25 mcg inhalat.powder (Trelegy Ellipta) lidocaine 5 % topical patch 2 patch transdermal DAILY #20 ea 06/08/24 07/28/24 Unknown magnesium chloride 64 mg 64 mg PO BID #60 tabs 06/08/24 07/28/24 Unknown (magnesium chloride) tablet,delayed release memantine 10 mg tablet 10 mg PO BID #60 tabs 06/08/24 07/28/24 Unknown multivitamin with minerals-folic 1 tab PO DAILY #30 tabs 06/08/24 07/28/24 Unknown acid 200 mcg chewable tablet (Multivitamin Gummies) nystatin 100,000 unit/gram topical 1 applic EXT BID #30 grams 06/08/24 07/28/24 Unknown powder (Nystop) omeprazole 20 mg capsule,delayed 20 mg PO DAILY #30 caps 06/08/24 07/28/24 Unknown release solifenacin 5 mg tablet 5 mg PO DAILY #30 tabs 06/08/24 07/28/24 Unknown L.acidop,casei,lactis,rham-B.lact,sienna 1 cap PO DAILY 30 days #30 caps 07/07/24 07/28/24 Unknown 625 mg (10 billion cell) capsule (Advanced Probiotic) aripiprazole 5 mg tablet (Abilify) 2.5 mg (1/2 x 5 mg) PO QAM 30 days 07/07/24 07/28/24 Unknown #15 tabs escitalopram oxalate 10 mg tablet 5 mg (1/2 x 10 mg) PO QAM 30 days 07/07/24 07/28/24 Unknown #15 tabs hydrocortisone 10 mg tablet 10 mg PO 1500 #0 tabs 07/07/24 07/28/24 Unknown (Cortef) hydrocortisone 10 mg tablet 20 mg (2 x 10 mg) PO QAM #0 tabs 07/07/24 07/28/24 Unknown (Cortef) methocarbamol 500 mg tablet 500 mg PO DAILY 07/28/24 07/28/24 Unknown mirabegron 25 mg tablet,extended 25 mg PO DAILY 07/28/24 07/28/24 Unknown release 24 hr (Myrbetriq) sennosides 8.6 mg tablet (senna) 8.6 mg PO DAILY PRN Constipation 07/28/24 07/28/24 Unknown Active Medications Generic Name Dose Route Start Last Admin Trade Name Freq PRN Reason Stop Dose Admin Acetaminophen 650 mg 07/28/24 22:49 08/05/24 17:29 Acetaminophen 325 Mg Tab PO 08/27/24 22:48 650 mg QID PRN Administration pain/fever Aripiprazole 2.5 mg 08/06/24 11:00 08/07/24 08:54 Aripiprazole 10 Mg Tab PO 09/05/24 10:59 2.5 mg QAM TAWNY Administration Protocol Cyanocobalamin 1,000 mcg 07/29/24 09:00 08/07/24 08:55 Cyanocobalamin (B-12) 500 Mcg Tablet PO 08/28/24 08:59 1,000 mcg DAILY TAWNY Administration Escitalopram Oxalate 5 mg 07/29/24 09:00 08/07/24 08:56 Escitalopram Oxalate 10 Mg Tab PO 08/28/24 08:59 5 mg QAM TAWNY Administration Ferrous Sulfate 325 mg 07/29/24 09:00 08/07/24 08:57 Ferrous Sulfate 325 Mg Tab PO 08/28/24 08:59 325 mg DAILY TAWNY Administration Fludrocortisone Acetate 0.1 mg 07/29/24 09:00 08/07/24 08:56 Fludrocortisone Acetate 0.1 Mg Tab PO 08/28/24 08:59 0.1 mg DAILY TAWNY Administration Fluticasone Furoate 1 puffs 07/29/24 09:00 08/07/24 08:54 Fluticasone Furoate 200mcg 14 Puffs/Inhaler INH 08/28/24 08:59 1 puffs DAILY TAWNY Administration Hydrocortisone 10 mg 07/29/24 15:00 08/07/24 14:28 Hydrocortisone 10 Mg Tab PO 08/28/24 14:59 10 mg 1500 TAWNY Administration Hydrocortisone 20 mg 07/29/24 09:00 08/07/24 08:54 Hydrocortisone 10 Mg Tab PO 08/28/24 08:59 20 mg QAM TAWNY Administration Lactobacillus Acidophilus 1,250 mg 07/29/24 09:00 08/07/24 08:54 Advanced Probiotic 625 Mg Capsule PO 08/28/24 08:59 1,250 mg DAILY TAWNY Administration Lidocaine 2 patch 07/29/24 09:00 08/07/24 08:57 Lidocaine 5% 1 Patch TD 08/28/24 08:59 2 patch DAILY TAWNY Administration Melatonin 3 mg 08/04/24 19:00 08/06/24 18:18 Melatonin 3 Mg Tab PO 09/03/24 18:59 3 mg 1900 TAWNY Administration Memantine 10 mg 07/28/24 23:00 08/07/24 08:56 Memantine Hcl 10 Mg Tab PO 08/27/24 22:59 10 mg BID TAWNY Administration Methocarbamol 500 mg 07/29/24 09:00 08/07/24 08:56 Methocarbamol 500 Mg Tablet PO 08/28/24 08:59 500 mg DAILY TAWNY Administration Miscellaneous 1 each 07/29/24 21:00 08/06/24 20:20 Remove Lidoderm Patch N/A 08/28/24 20:59 1 each DAILY@2100 TAWNY Administration Multivitamins/Minerals 1 tab 07/29/24 09:00 08/07/24 08:53 Cerovite Adv Formula Tab PO 08/28/24 08:59 1 tab DAILY TAWNY Administration Nystatin 1 appln 07/29/24 09:00 08/07/24 08:55 Nystatin Powder 15gm Btl EXT 08/28/24 08:59 1 appln BID TAWNY Administration Nystatin 5 ml 08/01/24 04:10 08/07/24 13:35 Nystatin Susp 500,000 U/5 Ml Udc PO 08/11/24 04:09 5 ml QID TAWNY Administration Oxybutynin Chloride 5 mg 07/29/24 09:00 08/07/24 08:56 Oxybutynin Chloride Xl 5 Mg Tabcr PO 08/28/24 08:59 5 mg DAILY TAWNY Administration Pantoprazole Sodium 40 mg 07/29/24 09:00 08/07/24 08:56 Pantoprazole 40 Mg Tab PO 08/28/24 08:59 40 mg DAILY TAWNY Administration Sennosides 8.6 mg 07/28/24 22:50 08/01/24 08:33 Senna 8.6 Mg Tab PO 08/27/24 22:49 8.6 mg DAILY PRN Administration Constipation Umeclidinium/Vilanterol 1 puffs 07/29/24 09:00 08/07/24 08:54 Umeclidinium/Vilanterol 62.5/25mcg 7 Puffs/Inhaler INH 08/28/24 08:59 1 puffs DAILY TAWNY Administration Vibegron 75 mg 07/29/24 09:00 08/07/24 08:53 Vibegron 75 Mg Tab PO 08/28/24 08:59 75 mg DAILY TAWNY Administration Vitamin D 125 mcg 07/29/24 09:00 08/07/24 08:56 Cholecalciferol 125 Mcg (5,000 Units) Tab PO 08/28/24 08:59 125 mcg DAILY TAWNY Administration (4) Stage 3 chronic kidney disease Chronic kidney disease stage 3 subtype: unspecified whether 3a or 3b Qualified Code(s): N18.30 - Chronic kidney disease, stage 3 unspecified
[2024-08-07] MEDS: POTASSIUM CHLORIDE CRTAB 20 MEQ TABCR PO SCH (20:49)
[2024-08-08] MEDS: LOPERAMIDE HCL 2 MG CAP PO PRN (01:33)
[2024-08-08 09:39] LABS: BUN Creatinine Ratio 13.3 (10-20); Calcium 8.9 mg/dl (8.6-10.3); Creatinine Clr Calc Pharmacy 58.8 ml/min; Potassium 3.8 mmol/L (3.5-5.1)
--- NOTE | 2024-08-08 16:14 | Hospitalist Progress Note ---
Date of Service August 08, 2024 Assessment & Plan (1) Chronic indwelling Devlin catheter: (2) Hx of prostatic malignancy: (3) Orthostatic hypotension: (4) Stage 3 chronic kidney disease: (5) Adrenal insufficiency: Plan Mr. 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 There was concern for recurrent UTI for which patient treated with 5 days empiric coverage. ID not suspicious cultures suggestive of CAUTI. but rather expected bacteruria 08/04 Briefly discussed prognosis of oncologic status with Dr. Gramajo, who notes that oncologically patient continues with surveillance and no evidence of active disease. It is noted that patient has reported decline over last year. Discussed with Ivet that patient has multiple comorbidities that are progressive and that "normal" may not be what she is anticipating. Plan for likely SNF; however, [facility] is out of network Episodes of diarrhea noted; c diff negative, no abdominal pain reported during episodes, still eating, sx control with loperamide Awaiting next dispo steps contingent on insurance. NO changes to management 08/08 #Diarrhea *resolved c diff negative stool pcr pending loperamide prn #Unwitnessed Fall #History of recurrent CAUTI #BPH/prostate cancer/history of bladder cancer status post surgery patient with chronic indwelling Devlin Patient with multiple chronic conditions likely contributing to falls PT OT eval Continue to monitor tsh last collected 03/2024 at 2.11, repeat 2.78 08/03 #Chronic hematuria #Acute on chronic anemia #Iron Deficiency Anemia hemoglobin of 9.5 stable Continue home iron, B12 supplements Anemia panel noting low normal iron levels, supplemented b12 and folate levels -Iron level improved compared to prior levels #Failure to thrive #Malnutrition patient's noting decreased p.o. 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 #History of prostate cancer, s/p EBRT 2017 #Radiation cystitis s/p keytruda c/b myocarditis due for cystoscopy in 08/2024 Chronic Medical Problems: Hypertension secondary to illness, currently not on maintenance medications due to history orthostatic hypotension valvular heart disease (moderate , mild AR) hypertension, stable at this time history PE DVT status post IVC filter placement hx Keytruda myocarditis/history of adrenal insufficiency on chronic steroid/fludrocortisone Rx Underlying pulmonary hypertension, hx bronchial asthma/COPD, ANDRZEJ (not currently using CPAP machine due to need for new orders as per PCP notes) Mild cognitive impairment, patient mentating well on regimen Functional disability/ambulatory dysfunction, PT/OT- will likely need acute rehab placement once more continue other home meds as ordered Diet: HH DVT prophylaxis: SCDs Re: Hematuria Full code Dispo: SNF likely wednesday Admission and Anticipated Discharge Date Admission Date: July 28, 2024 Subjective NAEO Denies any new concerns, but wishes to go home reassurance provided Physical Exam Constitutional: WD/WN, vitals as above Respiratory: normal respiratory effort, lungs clear to auscultation Cardiovascular: RRR, no murmur, no edema Gastrointestinal (Abdomen): normal bowel sounds, soft, nontender, no hepatosplenomegaly Neurologic: PERRL, EOMI, accommodation nl, no face palsy, no dysarthria Results & Data Results & Data Vital Signs (Past 12 Hours) Vital Signs Temp Pulse Pulse Resp BP Pulse Ox O2 Del Method 08/08/24 14:45 37.1 C 76 16 98/60 L 96 Room Air 08/08/24 14:26 77 08/08/24 11:28 36.5 C 71 16 105/61 94 Room Air 08/08/24 10:03 Room Air 08/08/24 07:53 36.3 C L 78 18 140/78 97 Room Air 08/08/24 06:41 76 Laboratory Results [facility] 08/08/24 09:08 Sodium 141 Potassium 3.8 Chloride 107 Carbon Dioxide 28 BUN 18 Creatinine 1.35 Glucose 112 H Calcium 8.9 Medications Administered Home Medications Medication Instructions Recorded Confirmed Last Taken acetaminophen 325 mg tablet 650 mg (2 x 325 mg) PO Q4H PRN 06/08/24 07/28/24 Unknown fever or pain #30 tabs albuterol sulfate 90 mcg/actuation 2 puff inhalation Q4H PRN 06/08/24 07/28/24 Unknown aerosol inhaler Shortness Of Breath Or Wheezing #16 grams ascorbic acid (vitamin C) 1,000 mg 1,000 mg PO DAILY #30 tabs 06/08/24 07/28/24 Unknown tablet aspirin 81 mg tablet,delayed 81 mg PO DAILY #30 tabs 06/08/24 07/28/24 Unknown release cholecalciferol (vitamin D3) 125 125 mcg PO DAILY #30 tabs 06/08/24 07/28/24 Unknown mcg (5,000 unit) tablet (Vitamin D3) cyanocobalamin (vitamin B-12) 1,000 mcg PO DAILY #30 tabs 06/08/24 07/28/24 Unknown 1,000 mcg tablet epinephrine 0.3 mg/0.3 mL 0.3 mg (0.3 mL) IM UD PRN 06/08/24 07/28/24 Unknown injection, auto-injector Anaphylaxis #3 ea ferrous sulfate 325 mg (65 mg 325 mg PO DAILY #30 tabs 06/08/24 07/28/24 Unknown iron) tablet,delayed release fludrocortisone 0.1 mg tablet 0.1 mg PO DAILY #30 tabs 06/08/24 07/28/24 Unknown fluticasone fur. 200 mcg-umeclid 1 inh inhalation DAILY #1 ea 06/08/24 07/28/24 Unknown 62.5 mcg-vilant 25 mcg inhalat.powder (Trelegy Ellipta) lidocaine 5 % topical patch 2 patch transdermal DAILY #20 ea 06/08/24 07/28/24 Unknown magnesium chloride 64 mg 64 mg PO BID #60 tabs 06/08/24 07/28/24 Unknown (magnesium chloride) tablet,delayed release memantine 10 mg tablet 10 mg PO BID #60 tabs 06/08/24 07/28/24 Unknown multivitamin with minerals-folic 1 tab PO DAILY #30 tabs 06/08/24 07/28/24 Unknown acid 200 mcg chewable tablet (Multivitamin Gummies) nystatin 100,000 unit/gram topical 1 applic EXT BID #30 grams 06/08/24 07/28/24 Unknown powder (Nystop) omeprazole 20 mg capsule,delayed 20 mg PO DAILY #30 caps 06/08/24 07/28/24 Unknown release solifenacin 5 mg tablet 5 mg PO DAILY #30 tabs 06/08/24 07/28/24 Unknown L.acidop,casei,lactis,rham-B.lact,sienna 1 cap PO DAILY 30 days #30 caps 07/07/24 07/28/24 Unknown 625 mg (10 billion cell) capsule (Advanced Probiotic) aripiprazole 5 mg tablet (Abilify) 2.5 mg (1/2 x 5 mg) PO QAM 30 days 07/07/24 07/28/24 Unknown #15 tabs escitalopram oxalate 10 mg tablet 5 mg (1/2 x 10 mg) PO QAM 30 days 07/07/24 07/28/24 Unknown #15 tabs hydrocortisone 10 mg tablet 10 mg PO 1500 #0 tabs 07/07/24 07/28/24 Unknown (Cortef) hydrocortisone 10 mg tablet 20 mg (2 x 10 mg) PO QAM #0 tabs 07/07/24 07/28/24 Unknown (Cortef) methocarbamol 500 mg tablet 500 mg PO DAILY 07/28/24 07/28/24 Unknown mirabegron 25 mg tablet,extended 25 mg PO DAILY 07/28/24 07/28/24 Unknown release 24 hr (Myrbetriq) sennosides 8.6 mg tablet (senna) 8.6 mg PO DAILY PRN Constipation 07/28/24 07/28/24 Unknown Active Medications Generic Name Dose Route Start Last Admin Trade Name Freq PRN Reason Stop Dose Admin Acetaminophen 650 mg 07/28/24 22:49 08/08/24 08:22 Acetaminophen 325 Mg Tab PO 08/27/24 22:48 650 mg QID PRN Administration pain/fever Aripiprazole 2.5 mg 08/06/24 11:00 08/08/24 08:15 Aripiprazole 10 Mg Tab PO 09/05/24 10:59 2.5 mg QAM TAWNY Administration Protocol Cyanocobalamin 1,000 mcg 07/29/24 09:00 08/08/24 08:16 Cyanocobalamin (B-12) 500 Mcg Tablet PO 08/28/24 08:59 1,000 mcg DAILY TAWNY Administration Escitalopram Oxalate 5 mg 07/29/24 09:00 08/08/24 08:17 Escitalopram Oxalate 10 Mg Tab PO 08/28/24 08:59 5 mg QAM TAWNY Administration Ferrous Sulfate 325 mg 07/29/24 09:00 08/08/24 08:17 Ferrous Sulfate 325 Mg Tab PO 08/28/24 08:59 325 mg DAILY TAWNY Administration Fludrocortisone Acetate 0.1 mg 07/29/24 09:00 08/08/24 08:17 Fludrocortisone Acetate 0.1 Mg Tab PO 08/28/24 08:59 0.1 mg DAILY TAWNY Administration Fluticasone Furoate 1 puffs 07/29/24 09:00 08/08/24 08:18 Fluticasone Furoate 200mcg 14 Puffs/Inhaler INH 08/28/24 08:59 1 puffs DAILY TAWNY Administration Hydrocortisone 10 mg 07/29/24 15:00 08/08/24 15:35 Hydrocortisone 10 Mg Tab PO 08/28/24 14:59 10 mg 1500 TAWNY Administration Hydrocortisone 20 mg 07/29/24 09:00 08/08/24 08:19 Hydrocortisone 10 Mg Tab PO 08/28/24 08:59 20 mg QAM TAWNY Administration Lactobacillus Acidophilus 1,250 mg 07/29/24 09:00 08/08/24 08:17 Advanced Probiotic 625 Mg Capsule PO 08/28/24 08:59 1,250 mg DAILY TAWNY Administration Lidocaine 2 patch 07/29/24 09:00 08/08/24 08:16 Lidocaine 5% 1 Patch TD 08/28/24 08:59 2 patch DAILY TAWNY Administration Loperamide HCl 2 mg 08/08/24 01:29 08/08/24 08:14 Loperamide Hcl 2 Mg Cap PO 09/07/24 01:28 2 mg TID PRN Administration Diarrhea Melatonin 3 mg 08/04/24 19:00 08/07/24 20:49 Melatonin 3 Mg Tab PO 09/03/24 18:59 3 mg 1900 TAWNY Administration Memantine 10 mg 07/28/24 23:00 08/08/24 08:16 Memantine Hcl 10 Mg Tab PO 08/27/24 22:59 10 mg BID TAWNY Administration Methocarbamol 500 mg 07/29/24 09:00 08/08/24 08:18 Methocarbamol 500 Mg Tablet PO 08/28/24 08:59 500 mg DAILY TAWNY Administration Miscellaneous 1 each 07/29/24 21:00 08/07/24 20:50 Remove Lidoderm Patch N/A 08/28/24 20:59 1 each DAILY@2100 TAWNY Administration Multivitamins/Minerals 1 tab 07/29/24 09:00 08/08/24 08:17 Cerovite Adv Formula Tab PO 08/28/24 08:59 1 tab DAILY TAWNY Administration Nystatin 1 appln 07/29/24 09:00 08/08/24 08:19 Nystatin Powder 15gm Btl EXT 08/28/24 08:59 1 appln BID TAWNY Administration Nystatin 5 ml 08/01/24 04:10 08/08/24 17:40 Nystatin Susp 500,000 U/5 Ml Udc PO 08/11/24 04:09 5 ml QID TAWNY Administration Oxybutynin Chloride 5 mg 07/29/24 09:00 08/08/24 08:17 Oxybutynin Chloride Xl 5 Mg Tabcr PO 08/28/24 08:59 5 mg DAILY TAWNY Administration Pantoprazole Sodium 40 mg 07/29/24 09:00 08/08/24 08:18 Pantoprazole 40 Mg Tab PO 08/28/24 08:59 40 mg DAILY TANWY Administration Sennosides 8.6 mg 07/28/24 22:50 08/01/24 08:33 Senna 8.6 Mg Tab PO 08/27/24 22:49 8.6 mg DAILY PRN Administration Constipation Umeclidinium/Vilanterol 1 puffs 07/29/24 09:00 08/08/24 08:18 Umeclidinium/Vilanterol 62.5/25mcg 7 Puffs/Inhaler INH 08/28/24 08:59 1 puffs DAILY TAWNY Administration Vibegron 75 mg 07/29/24 09:00 08/08/24 08:15 Vibegron 75 Mg Tab PO 08/28/24 08:59 75 mg DAILY TAWNY Administration Vitamin D 125 mcg 07/29/24 09:00 08/08/24 08:17 Cholecalciferol 125 Mcg (5,000 Units) Tab PO 08/28/24 08:59 125 mcg DAILY TAWNY Administration (4) Stage 3 chronic kidney disease Chronic kidney disease stage 3 subtype: unspecified whether 3a or 3b Qualified Code(s): N18.30 - Chronic kidney disease, stage 3 unspecified
--- NOTE | 2024-08-09 13:55 | Hospitalist Progress Note ---
Date of Service August 09, 2024 Assessment & Plan (1) Chronic indwelling Devlin catheter: (2) Hx of prostatic malignancy: (3) Orthostatic hypotension: (4) Stage 3 chronic kidney disease: (5) Adrenal insufficiency: Plan Mr. 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 Diarrhea--resolved Stool for c diff negative stool PCR Negative Loperamide as needed Unwitnessed Fall H/O recurrent CAUTI BPH/prostate cancer/history of bladder cancer status post surgery patient with chronic indwelling Devlin Patient with multiple chronic conditions likely contributing to falls Continue PT OT Fall precautions Appreciate infectious disease input: Less likely CAUTI, likely bacteriuria Chronic hematuria Acute on chronic anemia Iron Deficiency Anemia Continue home iron, B12 supplements Hemoglobin stable Check iron levels Failure to thrive Malnutrition patient's noting decreased p.o. 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 History of prostate cancer, s/p EBRT 2018 Radiation cystitis S/p keytruda c/b myocarditis Due for cystoscopy in 08/2024 Chronic Medical Problems: Hypertension secondary to illness, currently not on maintenance medications due to history orthostatic hypotension Valvular heart disease (moderate , mild AR) H/O PE/DVT status post IVC filter placement H/O Keytruda myocarditis/history of adrenal insufficiency on chronic steroid/fludrocortisone Rx Underlying pulmonary hypertension, hx bronchial asthma/COPD, ANDRZEJ (not currently using CPAP machine due to need for new orders as per PCP notes) Mild cognitive impairment, patient mentating well on regimen Functional disability/ambulatory dysfunction, PT/OT- will likely need acute rehab placement once more -Continue home medications as able DVT Px: SCDs Re: Hematuria Code Status Full code Disposition SNF when accepted Admission and Anticipated Discharge Date Admission Date: July 28, 2024 Subjective Patient is seen and examined at bedside Offers no new complaints Updated patient's over the phone Denies any chest pain, dyspnea, nausea, vomiting, abdominal pain Waiting for rehab placement Review of Systems Review of Systems: All systems reviewed & are unremarkable except as noted in Subjective Physical Exam Physical Exam: Physical Exam: Vitals signs as noted above General Appearance:Moderately built and nourished, no apparent distress Head: normocephalic, Atraumatic Eyes: normal inspection, EOMI Neck: supple, Trachea midline Respiratory/Chest: Normal breath sounds, CTA, No accessory muscle use Cardiovascular: S1, S2, + murmur Abdomen/GI:Soft, Non tender, Bowel sounds present Extremities/Musculoskeletal:normal inspection, 1+edema, chronic venous stasis changes Neurologic/Psych:AAOX3, grossly no focal neurological deficits Skin: normal color, warm Results & Data Results & Data Vital Signs (Past 12 Hours) Vital Signs Temp Pulse Pulse Pulse Resp BP Pulse Ox 08/09/24 11:51 36.6 C 69 18 114/72 95 08/09/24 11:45 08/09/24 08:56 08/09/24 07:35 36.8 C 70 18 113/69 97 08/09/24 06:52 71 08/09/24 04:04 37.9 C H 72 20 115/69 95 Pulse Ox O2 Del Method O2 Del Method 08/09/24 11:51 Room Air 08/09/24 11:45 Room Air 08/09/24 08:56 97 Room Air 08/09/24 07:35 Room Air 08/09/24 06:52 08/09/24 04:04 Room Air (4) Stage 3 chronic kidney disease Chronic kidney disease stage 3 subtype: unspecified whether 3a or 3b Qualified Code(s): N18.30 - Chronic kidney disease, stage 3 unspecified
[2024-08-10 06:50] LABS: Hematocrit (blood only) 32.4 % (42.0-52.0); Hemoglobin 10.2 g/dl (14.0-18.0); Mean Corpuscular Hemoglobin 27.3 pg (25.0-34.0); Mean Corpuscular Hgb Conc 31.5 g/dL (32.0-36.0); Mean Corpuscular Volume 86.9 fL (80.0-100.0); Mean Platelet Volume 8.7 fL (9.4-12.4); Platelet Count 263 K/uL (130-400); RDW Coefficient of Variation 16.9 % (11.5-14.5); RDW Standard Deviation 52.7 fL (36.4-46.3); Red Blood Count 3.73 M/uL (4.70-6.10); White Blood Count 6.04 K/ul (4.8-10.8)
[2024-08-10 07:39] LABS: BUN Creatinine Ratio 17.9 (10-20); Calcium 8.8 mg/dl (8.6-10.3); Creatinine Clr Calc Pharmacy 70.3 ml/min; Potassium 3.4 mmol/L (3.5-5.1)
[2024-08-10 08:00] LABS: Ferritin 451.1 ng/ml (8-388)
[2024-08-10] MEDS: POTASSIUM CHLORIDE CRTAB 20 MEQ TABCR PO ONE (09:05)
[2024-08-10] MEDS: IRON SUCROSE 200 MG in SODIUM CHLORIDE 0.9% 100 ML IV ONE (09:44)
--- NOTE | 2024-08-10 14:04 | Hospitalist Progress Note ---
Date of Service August 10, 2024 Assessment & Plan (1) Chronic indwelling Devlin catheter: (2) Hx of prostatic malignancy: (3) Orthostatic hypotension: (4) Stage 3 chronic kidney disease: (5) Adrenal insufficiency: Plan Mr. 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 Diarrhea Stool for c diff negative stool PCR Negative Loperamide as needed Resolved Unwitnessed Fall H/O recurrent CAUTI BPH/prostate cancer/history of bladder cancer status post surgery patient with chronic indwelling Devlin Patient with multiple chronic conditions likely contributing to falls Continue PT OT Fall precautions Appreciate infectious disease input: Less likely CAUTI, likely bacteriuria Plan to discharge to SNF today Chronic hematuria Acute on chronic anemia Iron Deficiency Anemia Continue home iron, B12 supplements Hemoglobin stable Gave IV Venofer today Failure to thrive Malnutrition patient's noting decreased p.o. 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 History of prostate cancer, s/p EBRT 2018 Radiation cystitis S/p keytruda c/b myocarditis Due for cystoscopy in 08/2024 Chronic Medical Problems: Hypertension secondary to illness, currently not on maintenance medications due to history orthostatic hypotension Valvular heart disease (moderate , mild AR) H/O PE/DVT status post IVC filter placement H/O Keytruda myocarditis/history of adrenal insufficiency on chronic steroid/fludrocortisone Rx Underlying pulmonary hypertension, hx bronchial asthma/COPD, ANDRZEJ (not currently using CPAP machine due to need for new orders as per PCP notes) Mild cognitive impairment, patient mentating well on regimen Functional disability/ambulatory dysfunction, PT/OT- will likely need acute rehab placement once more -Continue home medications as able DVT Px: SCDs Re: Hematuria Code Status Full code Disposition SNF Admission and Anticipated Discharge Date Admission Date: July 28, 2024 Subjective Patient is seen and examined at bedside States feeling tired but otherwise no complaints Denies any chest pain, dyspnea, nausea, vomiting, abdominal pain Offers no other complaints Review of Systems Review of Systems: All systems reviewed & are unremarkable except as noted in Subjective Physical Exam Physical Exam: Physical Exam: Vitals signs as noted above General Appearance:Moderately built and nourished, no apparent distress Head: normocephalic, Atraumatic Eyes: normal inspection, EOMI Neck: supple, Trachea midline Respiratory/Chest: Normal breath sounds, CTA, No accessory muscle use Cardiovascular: S1, S2, + murmur Abdomen/GI:Soft, Non tender, Bowel sounds present Extremities/Musculoskeletal:normal inspection, 1+edema, chronic venous stasis changes Neurologic/Psych:AAOX3, grossly no focal neurological deficits Skin: normal color, warm Results & Data Results & Data Vital Signs (Past 12 Hours) Vital Signs Temp Pulse Pulse Resp BP Pulse Ox Pulse Ox 08/10/24 10:56 36.7 C 64 16 114/69 94 08/10/24 09:00 95 08/10/24 08:39 36.4 C L 60 18 133/82 95 08/10/24 06:54 61 08/10/24 04:39 36.5 C 65 20 124/72 95 O2 Del Method O2 Del Method 08/10/24 10:56 Room Air 08/10/24 09:00 Room Air 08/10/24 08:39 Room Air 08/10/24 06:54 08/10/24 04:39 Room Air Laboratory Results Short CBC 08/10/24 Range/Units 05:50 WBC 6.04 (4.8-10.8) K/ul Hgb 10.2 L (14.0-18.0) g/dl Hct 32.4 L (42.0-52.0) % Plt Count 263 (130-400) K/uL BMP 08/10/24 05:50 Sodium 141 Potassium 3.4 L Chloride 107 Carbon Dioxide 27 BUN 20 Creatinine 1.12 Glucose 81 Calcium 8.8 (4) Stage 3 chronic kidney disease Chronic kidney disease stage 3 subtype: unspecified whether 3a or 3b Qualified Code(s): N18.30 - Chronic kidney disease, stage 3 unspecified
[2024-08-11 04:44] VITALS: TEMP 97.3
[2024-08-11 07:36] VITALS: BP 125/72; PULSE 53; RESP 18; O2SAT 97
--- NOTE | 2024-08-11 10:48 | Hospitalist Progress Note ---
Date of Service August 11, 2024 Assessment & Plan (1) Chronic indwelling Devlin catheter: (2) Hx of prostatic malignancy: (3) Orthostatic hypotension: (4) Stage 3 chronic kidney disease: (5) Adrenal insufficiency: Plan Mr. 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 Diarrhea Stool for c diff negative stool PCR Negative Loperamide as needed No recurrence of diarrhea currently Unwitnessed Fall H/O recurrent CAUTI BPH/prostate cancer/history of bladder cancer status post surgery patient with chronic indwelling Devlin Patient with multiple chronic conditions likely contributing to falls Continue PT OT Fall precautions Appreciate infectious disease input: Less likely CAUTI, likely bacteriuria Plan to discharge to SNF today Updated patient's over the phone today Chronic hematuria Acute on chronic anemia Iron Deficiency Anemia Continue home iron, B12 supplements Hemoglobin stable Received IV Venofer Failure to thrive Malnutrition patient's noting decreased p.o. 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 History of prostate cancer, s/p EBRT 2017 Radiation cystitis S/p keytruda c/b myocarditis Due for cystoscopy in 08/2024 Chronic Medical Problems: Hypertension secondary to illness, currently not on maintenance medications due to history orthostatic hypotension Valvular heart disease (moderate , mild AR) H/O PE/DVT status post IVC filter placement H/O Keytruda myocarditis/history of adrenal insufficiency on chronic steroid/fludrocortisone Rx Underlying pulmonary hypertension, hx bronchial asthma/COPD, ANRDZEJ (not currently using CPAP machine due to need for new orders as per PCP notes) Mild cognitive impairment, patient mentating well on regimen Functional disability/ambulatory dysfunction, PT/OT- will likely need acute rehab placement once more -Continue home medications as able DVT Px: SCDs Re: Hematuria Code Status Full code Disposition SNF Admission and Anticipated Discharge Date Admission Date: July 28, 2024 Subjective Patient is seen and examined at bedside Sitting in chair comfortably during my encounter Offers no new complaints today Updated patient's over the phone Denies any chest pain, dyspnea, nausea, vomiting, abdominal pain Plan to be discharged to rehab facility today Review of Systems Review of Systems: All systems reviewed & are unremarkable except as noted in Subjective Physical Exam Physical Exam: Physical Exam: Vitals signs as noted above General Appearance:Moderately built and nourished, no apparent distress Head: normocephalic, Atraumatic Eyes: normal inspection, EOMI Neck: supple, Trachea midline Respiratory/Chest: Normal breath sounds, CTA, No accessory muscle use Cardiovascular: S1, S2, + murmur Abdomen/GI:Soft, Non tender, Bowel sounds present Extremities/Musculoskeletal:normal inspection, 1+edema, chronic venous stasis changes Neurologic/Psych:AAOX3, grossly no focal neurological deficits Skin: normal color, warm Results & Data Results & Data Vital Signs (Past 12 Hours) Vital Signs Temp Pulse Pulse Resp BP Pulse Ox O2 Del Method 08/11/24 08:00 Room Air 08/11/24 07:35 36.3 C L 53 L 18 125/72 97 Room Air 08/11/24 07:28 65 08/11/24 04:15 36.3 C L 66 17 145/88 H 99 Room Air 08/10/24 23:01 36.5 C 70 18 115/67 95 Room Air (4) Stage 3 chronic kidney disease Chronic kidney disease stage 3 subtype: unspecified whether 3a or 3b Qualified Code(s): N18.30 - Chronic kidney disease, stage 3 unspecified
--- NOTE | 2024-08-11 11:33 | Discharge Summary ---
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 Per chart review Recent hospitalization 06/23/2024-07/07/2024 for UTI and mental status c hanges and during hospitalization had hospital induced delirium, anxiety. Psychiatry saw patient and added escitalopram and Abilify. Patient was discharged to [facility]. Discharged home on 07/21/2024. Reports getting home health and home PT. Reports having continued ambulatory dysfunction. Limited history obtained from patient secondary to memory issues but assists in history. Spoke to on phone. Patient has had ambulatory dysfunction over past couple of months. using wheelchair when out of house and uses walker inside house. reports she went out to pick pack worker his prescription today and was called by her neighbor who reported found patient on the floor at the bottom of the stairs (4 stairs) and reports patient was awake and alert. States noticed blood in Dvelin bag yesterday and continued today. Per she feels he is at baseline mental status as he has been recently. Denies any known fever, diarrhea. Patient currently in ER is awake and alert and oriented to person and knows he is in hospital facility. He denies any pain, BALTAZAR, SOB, abdominal pain, extremity pain, cough. He states he feels a little dizzy with walking. Admission Exam Per Admitting Provider General: no distress, WDWN Head: normocephalic, atraumatic Eyes: PERRL, conjunctiva non-injected, anicteric ENT: normal inspection external ears, nose, mucous membranes moist Neck: supple, trachea midline Lungs: clear, no respiratory distress, no wheezing/rhonchi/rales CV: RRR, + murmur, trace pretibial edema Abd: normal BS, soft, non-tender Ext: no cyanosis, no calf tenderness, +skin discoloration lower extremity Neuro: Alert, oriented to person and knows in hospital but unable to say name. 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 pembrolizumab [From [employer]] AdvReac Intermediate myocarditis Verified 06/22/24 13:25 Consultations 07/28/24 22:43 ED Decision to Admit Stat 07/29/24 16:19 Consult Infectious Diseases Routine Procedures Performed Laboratory Results WBC 6.04 K/ul (4.8-10.8) 08/10/24 05:50 RBC 3.73 M/uL (4.70-6.10) L 08/10/24 05:50 Hgb 10.2 g/dl (14.0-18.0) L 08/10/24 05:50 Hct 32.4 % (42.0-52.0) L 08/10/24 05:50 MCV 86.9 fL (80.0-100.0) 08/10/24 05:50 MCH 27.3 pg (25.0-34.0) 08/10/24 05:50 MCHC 31.5 g/dL (32.0-36.0) L 08/10/24 05:50 RDW Std Deviation 52.7 fL (36.4-46.3) H 08/10/24 05:50 RDW Coeff of Robert 16.9 % (11.5-14.5) H 08/10/24 05:50 Plt Count 263 K/uL (130-400) 08/10/24 05:50 MPV 8.7 fL (9.4-12.4) L 08/10/24 05:50 Immature Gran % (Auto) 0.3 % 08/02/24 08:13 Neut % (Auto) 53.8 % 08/02/24 08:13 Lymph % (Auto) 33.6 % 08/02/24 08:13 [place] % (Auto) 7.2 % 08/02/24 08:13 Eos % (Auto) 4.4 % 08/02/24 08:13 Baso % (Auto) 0.7 % 08/02/24 08:13 Neut # (Auto) 3.28 K/uL (1.40-6.50) 08/02/24 08:13 Lymph # (Auto) 2.05 K/uL (1.20-3.40) 08/02/24 08:13 [place] # (Auto) 0.44 K/uL (0.11-0.59) 08/02/24 08:13 Eos # (Auto) 0.27 K/uL (0.00-0.50) 08/02/24 08:13 Baso # (Auto) 0.04 K/uL (0.00-0.20) 08/02/24 08:13 Immature Gran # (Auto) 0.02 K/uL (0.01-0.20) 08/02/24 08:13 PT 11.4 Seconds (9.0-12.0) 07/28/24 17:35 INR 1.1 (0.9-1.1) 07/28/24 17:35 APTT 28 Seconds (21-31) 07/28/24 17:35 PTT Ratio 1.0 07/28/24 17:35 Sodium 141 mmol/L (136-145) 08/10/24 05:50 Potassium 3.4 mmol/L (3.5-5.1) L 08/10/24 05:50 Chloride 107 mmol/L (98-107) 08/10/24 05:50 Carbon Dioxide 27 mmol/L (21-32) 08/10/24 05:50 Anion Gap 7 (3-11) 08/10/24 05:50 BUN 20 mg/dl (6-23) 08/10/24 05:50 Creatinine 1.12 mg/dl (0.6-1.4) 08/10/24 05:50 Est Cr Clr Drug Dosing 70.3 ml/min 08/10/24 05:50 eGFR 67.66 08/10/24 05:50 BUN/Creatinine Ratio 17.9 (10-20) 08/10/24 05:50 Glucose 81 mg/dl (70-99(Fasting)) 08/10/24 05:50 POC Glucose 106 mg/dl (70-99) H 07/29/24 08:06 Lactate 0.8 mmol/L (0.4-2.0) 07/29/24 16:20 Calcium 8.8 mg/dl (8.6-10.3) 08/10/24 05:50 Phosphorus 3.4 mg/dl (2.5-4.9) 08/02/24 08:13 Magnesium 1.9 mg/dl (1.7-2.4) 08/02/24 08:13 Iron 25 mcg/dl (35-175) L 08/10/24 05:50 TIBC 157 mcg/dl (250-450) L 08/01/24 08:07 Transferrin 112 mg/dl (200-360) L 08/01/24 08:07 Transferrin % Sat 24 % (20-50) 08/01/24 08:07 Ferritin 451.1 ng/ml (8-388) H 08/10/24 05:50 Total Bilirubin 0.5 mg/dl (0.2-1.0) 08/02/24 08:13 AST 13 U/L (13-39) 08/02/24 08:13 ALT 14 U/L (7-52) 08/02/24 08:13 Alkaline Phosphatase 73 U/L (34-104) 08/02/24 08:13 Troponin I High Sens 7.0 pg/ml (0-20) 07/28/24 17:35 Total Protein 5.9 gm/dl (6.0-8.3) L 08/02/24 08:13 Albumin 2.9 gm/dl (3.4-5.0) L 08/02/24 08:13 Globulin 3.0 gm/dl (2.5-4.0) 08/02/24 08:13 Albumin/Globulin Ratio 1.0 (0.9-2) 08/02/24 08:13 Vitamin B12 949 pg/ml (180-914) H 08/01/24 08:07 Folate 14.34 ng/ml (>5.38) 08/01/24 08:07 Procalcitonin 0.10 ng/ml (0-0.5) 07/28/24 17:35 TSH 2.718 uIu/ml (0.300-4.500) 08/02/24 08:13 Urine Color Yellow 07/28/24 18:50 Urine Appearance Clear (Clear) 07/28/24 18:50 Urine pH 8.5 (4.5-7.5) H 07/28/24 18:50 Ur Specific [place] 1.012 (1.000-1.030) 07/28/24 18:50 Urine Protein 2+ (Negative) H 07/28/24 18:50 Urine Glucose (UA) Negative (Negative) 07/28/24 18:50 Urine Ketones Negative (Negative) 07/28/24 18:50 Urine Blood 3+ (Negative) H 07/28/24 18:50 Urine Nitrite Negative (Negative) 07/28/24 18:50 Urine Bilirubin Negative (Negative) 07/28/24 18:50 Urine Urobilinogen Negative (Negative) 07/28/24 18:50 Ur Leukocyte Esterase 2+ (Negative) H 07/28/24 18:50 Urine WBC (Auto) >50 /hpf (0-5) H 07/28/24 18:50 Urine RBC (Auto) >20 /hpf (0-2) H 07/28/24 18:50 U Hyaline Cast (Auto) 0-2 /lpf (0-2) 07/28/24 18:50 U Epithel Cells (Auto) 0-2 /hpf (0-2) 07/28/24 18:50 Urine Bacteria (Auto) 3+ (None Seen) H 07/28/24 18:50 Stl C. cayetanensis PCR Not Detected (NotDetected) 08/07/24 09:39 Stool Rotavirus A PCR Not Detected (NotDetected) 08/07/24 09:39 Stl Adenov F 40/41 PCR Not Detected (NotDetected) 08/07/24 09:39 Stool Astrovirus (PCR) Not Detected (NotDetected) 08/07/24 09:39 Stool Campylobacter PCR Not Detected (NotDetected) 08/07/24 09:39 Stl C. diff Tox B Gene Negative Cdiff Gene (Neg) 08/07/24 02:30 Stool Cryptosporidium PCR Not Detected (NotDetected) 08/07/24 09:39 Stl E.coli Shiga Tox PCR Not Detected (NotDetected) 08/07/24 09:39 Stl Enterotoxigenic E PCR Not Detected (NotDetected) 08/07/24 09:39 Stool EPEC (PCR) Not Detected (NotDetected) 08/07/24 09:39 Stool EAEC (PCR) Not Detected (NotDetected) 08/07/24 09:39 Stl E. histolytica PCR Not Detected (NotDetected) 08/07/24 09:39 Stool Giardia Lamblia PCR Not Detected (NotDetected) 08/07/24 09:39 Stool Salmonella PCR Not Detected (NotDetected) 08/07/24 09:39 Stool Sapovirus (PCR) Not Detected (NotDetected) 08/07/24 09:39 Stl P. shigelloides PCR Not Detected (NotDetected) 08/07/24 09:39 Stl Shigella/EIEC PCR Not Detected (NotDetected) 08/07/24 09:39 St Y.enterocolitica PCR Not Detected (NotDetected) 08/07/24 09:39 Stool Vibrio (PCR) Not Detected (NotDetected) 08/07/24 09:39 Stl Vibrio cholerae PCR Not Detected (NotDetected) 08/07/24 09:39 Stl Norovirus GI/GII PCR Not Detected (NotDetected) 08/07/24 09:39 Impressions Chest X-Ray 07/28/24 17:44 EXAM: Radiograph of the Chest 1 View INDICATION: Sepsis. TECHNIQUE: Frontal view of the chest. COMPARISON: 05/31/2024 FINDINGS: Lungs and pleural spaces: Stable interstitial and left basilar scarring. No consolidation or pulmonary edema. No pleural effusion or pneumothorax. Heart: Shape and configuration within normal limits allowing for technique. Mediastinum: Normal contour. Bones/joints: No fracture, erosion or dislocation. Soft tissues: No abnormality noted. No radiopaque foreign body noted. Vasculature: Stable ectatic aorta. Upper abdomen: No abnormality noted. IMPRESSION: Stable chronic changes. No acute disease. ACT 112: Negative or not required by law. Electronically signed by Milady Ford 07-28-2024 6:55 PM Pelvis X-Ray 07/28/24 17:45 EXAM: Radiographs of the Pelvis 1 View INDICATION: Sepsis. TECHNIQUE: Frontal view of the pelvis. COMPARISON: No relevant prior studies available. FINDINGS: Limitations: None. Bones/joints: Trabecular coarsening and thickening of the right pubic bones and acetabulum noted likely related to Paget's. There is mild osteoarthritic narrowing of each hip. No fracture noted. No osseous destruction. Soft tissues: No abnormality noted. No radiopaque foreign body noted. Vasculature: Inferior vena cava filter noted at L3-L. IMPRESSION: 1. No acute abnormality. 2. 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 ACT 112: Negative or not required by law. Electronically signed by Milady Ford 07-28-2024 6:[address] 07/28/24 18:31 Exam(s): CT HEAD Without Contrast EXAM: CT Head Without Intravenous Contrast CLINICAL HISTORY: Reason for exam: fall, confusion. TECHNIQUE: Axial computed tomography images of the head/brain without intravenous contrast. CTDI is 77.28 mGy and DLP is 1250.21 mGy-cm. Automated exposure control was utilized for the study. A dose lowering technique was utilized adhering to the principles of ALARA. COMPARISON: 06/27/24 FINDINGS: Brain: Generalized parenchymal volume loss. Mild chronic small vessel ischemic change. Ware-white matter differentiation maintained. No hemorrhage, mass effect, parenchymal edema, or midline shift. Ventricles: Unremarkable. No hydrocephalus. Bones/joints: Unremarkable. No acute fracture. Soft tissues: Unremarkable. Vasculature: Intracranial atherosclerosis. Sinuses: Mucosal thickening in the sphenoid sinus. Mastoid air cells: Unremarkable as visualized. No mastoid effusion. Orbits: Lens replacement. IMPRESSION: No acute intracranial process. Electronically signed by: Nicole Lambert M.D. 07/28/24 19:57 PM KUB X-Ray 08/07/24 09:34 [facility] CLINICAL HISTORY: Abdominal pain. COMPARISON STUDY: CT of the abdomen and pelvis June 01, 2024. FINDINGS: IVC filter is incidentally noted. The bowel gas pattern is normal. No urinary calculi identified. The amount of stool is within normal limits. Cortical thickening and trabecular coarsening within the right hemipelvis suggests Paget's disease of the bone. This is unchanged. IMPRESSION: No evidence for a bowel obstruction. ACT 112: Negative or not required by law. Electronically signed by: Boris Keys M.D. 08/07/2024 11:23 AM Ordered Studies 07/28/24 18:31 CT head/brain wo con Stat Hospital Course (1) Chronic indwelling Devlin catheter: (2) Hx of prostatic malignancy: (3) Orthostatic hypotension: (4) Stage 3 chronic kidney disease: (5) Adrenal insufficiency: Plan Mr. 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 Diarrhea Stool for c diff negative stool PCR Negative Loperamide as needed No recurrence of diarrhea currently Unwitnessed Fall H/O recurrent CAUTI BPH/prostate cancer/history of bladder cancer status post surgery patient with chronic indwelling Devlin Patient with multiple chronic conditions likely contributing to falls Continue PT OT Fall precautions Appreciate infectious disease input: Less likely CAUTI, likely bacteriuria Plan to discharge to SNF today Updated patient's over the phone today Chronic hematuria Acute on chronic anemia Iron Deficiency Anemia Continue home iron, B12 supplements Hemoglobin stable Received IV Venofer Failure to thrive Malnutrition patient's noting decreased p.o. 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 History of prostate cancer, s/p EBRT 2017 Radiation cystitis S/p keytruda c/b myocarditis Due for cystoscopy in 08/2024 Chronic Medical Problems: Hypertension secondary to illness, currently not on maintenance medications due to history orthostatic hypotension Valvular heart disease (moderate , mild AR) H/O PE/DVT status post IVC filter placement H/O Keytruda myocarditis/history of adrenal insufficiency on chronic steroid/fludrocortisone Rx Underlying pulmonary hypertension, hx bronchial asthma/COPD, ANDRZEJ (not currently using CPAP machine due to need for new orders as per PCP notes) Mild cognitive impairment, patient mentating well on regimen Functional disability/ambulatory dysfunction, PT/OT- will likely need acute rehab placement once more -Continue home medications as able DVT Px: SCDs Re: Hematuria Code Status Full code Disposition SNF Total Time Total Time Spent Total Time Spent (In Minutes): 45 minutes Discharge Plan Discharge Items Patient Disposition: Transfer Senior Living Fac Reason For Visit: SYNCOPE, COMP UTI Discharge Diagnosis: Unwitnessed Fall Diarrhea--resolved Chronic hematuria Anemia of chronic disease Asymptomatic bacteriuria Failure to thrive H/O 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 Hill in 1 week upon discharge from rehab facility Seek immediate medical attention if your symptoms reoccur or worsen Please take all medications as instructed on discharge list below. Please call if you have any questions or problems. You can reach a [facility] hospitalist on duty at [facility] 24 hours a day by calling [phone] Pending Studies at Discharge: No Stand-Alone Forms: My [facility] Skilled Items Patient informed of condition?: Yes DNR: No Discharge Level of Care: Skilled Communicable Disease: No Discharge Prognosis: Stable Lines: None Urinary Catheter: Yes Medications and DC Order Prescriptions: Continued escitalopram oxalate 10 mg Tablet 5 mg PO QAM 30 Days Qty: 15 0RF Advanced Probiotic 625 mg (10 billion cell) Capsule 1 cap PO DAILY 30 Days Qty: 30 0RF hydrocortisone [Cortef] 10 mg tablet 10 mg PO 1500 Qty: 0 0RF Rx Instructions: for 1 week, then go back to 20mg in am. and 10mg at 1500 hydrocortisone [Cortef] 10 mg tablet 20 mg PO QAM Qty: 0 0RF aripiprazole [Abilify] 5 mg Tablet 2.5 mg PO QAM 30 Days Qty: 15 0RF methocarbamol 500 mg tablet 500 mg PO DAILY sennosides [senna] 8.6 mg Tablet 8.6 mg PO DAILY PRN (Reason: Constipation) mirabegron [Myrbetriq] 25 mg tablet extended release 24 hr 25 mg PO DAILY Rx Instructions: RECENT FILL PT COULD NOT CONFIRM acetaminophen 325 mg Tablet 650 mg PO Q4H PRN (Reason: fever or pain) Qty: 30 0RF memantine 10 mg Tablet 10 mg PO BID Qty: 60 0RF lidocaine 5 % Adhesive Patch,Medicated 2 patch transdermal DAILY Qty: 20 0RF nystatin [Nystop] 100,000 unit/gram Powder 1 applic EXT BID Qty: 30 0RF ascorbic acid (vitamin C) 1,000 mg Tablet 1,000 mg PO DAILY Qty: 30 0RF cyanocobalamin (vitamin B-12) 1,000 mcg Tablet 1,000 mcg PO DAILY Qty: 30 0RF aspirin 81 mg Tablet,Delayed Release (Dr/Ec) 81 mg PO DAILY Qty: 30 0RF omeprazole 20 mg capsule,delayed release(DR/EC) 20 mg PO DAILY Qty: 30 0RF epinephrine 0.3 mg/0.3 mL Auto-Injector 0.3 mg IM UD PRN (Reason: Anaphylaxis) Qty: 3 0RF Rx Instructions: prn anaphylaxis albuterol sulfate 90 mcg/actuation HFA aerosol inhaler 2 puff INHALATION Q4H PRN (Reason: Shortness Of Breath Or Wheezing) Qty: 16 0RF ferrous sulfate 325 mg (65 mg iron) Tablet,Delayed Release (Dr/Ec) 325 mg PO DAILY Qty: 30 0RF fludrocortisone 0.1 mg tablet 0.1 mg PO DAILY Qty: 30 0RF solifenacin 5 mg tablet 5 mg PO DAILY Qty: 30 0RF magnesium chloride 64 mg Tablet,Delayed Release (Dr/Ec) 64 mg PO BID Qty: 60 0RF cholecalciferol (vitamin D3) [Vitamin D3] 125 mcg (5,000 unit) Tablet 125 mcg PO DAILY Qty: 30 0RF multivit with min-folic acid [Multivitamin Gummies] 200 mcg Tablet,Chewable 1 tab PO DAILY Qty: 30 0RF Trelegy Ellipta 200-62.5-25 mcg blister with device 1 inh INHALATION DAILY Qty: 1 0RF Discharge Orders: Discharge Order (Routine); Ordered 08/11/24 Ordered By: Matt Gongora Admission Data Admit Date/Time: 07/28/24 22:48 Attending Provider: Matt Gongora Admit Provider: Branden Chung Primary Care Provider: Deondre Hill Other Providers: Branden Chung; Darryn Dahl; Mayank Daly; Scott Villanueva I.; Adonis Rodgers II; Suha Ortiz; Tom Marti; Pancho Sullivan; Kiki Leach; [facility] [place]; [place]; [facility], Other Interventions: Discharge Summary Assessment (RN) Last Done: 08/11/24 11:04
--- NOTE | 2024-08-14 06:35 | Coding Query ---
MALNUTRITION To promote full compliance with coding requirements relating to patient care, physician participation is requested in all cases of braille coder uncertainty. Please assist us with the question(s) below: Please place an X within the parenthesis (x). If other, please document: "Malnutrition" is documented in this record & also failure to thrive. If possible, please check the box that provides a more specific diagnosis: ( ) Mild malnutrition ( ) Moderate malnutrition ( ) Severe malnutrition ( ) Protein malnutrition (kwashiorkor) ( ) Severe protein calorie malnutrition ( x) Protein calorie malnutrition, unspecified ( ) Other (please specify): Was this diagnosis present on admission? Please place an X within the parenthesis (x). (x ) Present on admission ( ) Not present on admission ( ) Unable to be clinically determined Thank you CATHERINE Yañez [facility]
== END 2024-08-11 12:00 | DRG 696 ==
LOC: ED 17:13 → 2N 22:48 → SUATTDRO 22:48 → 2N 07-29 00:55
DX: C61 Malignant neoplasm of prostate; Y92.009 Unspecified place in unspecified non-institutional (private) residence as the place of occurrence of the external cause; Z86.711 Personal history of pulmonary embolism; Z95.828 Presence of other vascular implants and grafts; Z92.3 Personal history of irradiation; Z16.29 Resistance to other single specified antibiotic; E46 Unspecified protein-calorie malnutrition; M54.89 Other dorsalgia; I42.7 Cardiomyopathy due to drug and external agent; I95.1 Orthostatic hypotension; Y84.2 Radiological procedure and radiotherapy as the cause of abnormal reaction of the patient, or of later complication, without mention of misadventure at the time of the procedure; G31.84 Mild cognitive impairment of uncertain or unknown etiology; J44.9 Chronic obstructive pulmonary disease, unspecified; D50.9 Iron deficiency anemia, unspecified; N30.41 Irradiation cystitis with hematuria; R29.6 Repeated falls; N40.0 Benign prostatic hyperplasia without lower urinary tract symptoms; Z86.718 Personal history of other venous thrombosis and embolism; Z91.041 Radiographic dye allergy status; N18.30 Chronic kidney disease, stage 3 unspecified; G47.33 Obstructive sleep apnea (adult) (pediatric); R31.0 Gross hematuria; R82.71 Bacteriuria; R19.7 Diarrhea, unspecified; Z79.82 Long term (current) use of aspirin; W10.9XXA Fall (on) (from) unspecified stairs and steps, initial encounter; I27.20 Pulmonary hypertension, unspecified; Z88.1 Allergy status to other antibiotic agents; Z66 Do not resuscitate; I12.9 Hypertensive chronic kidney disease with stage 1 through stage 4 chronic kidney disease, or unspecified chronic kidney disease; Z79.52 Long term (current) use of systemic steroids; Z87.440 Personal history of urinary (tract) infections; C67.9 Malignant neoplasm of bladder, unspecified; E27.40 Unspecified adrenocortical insufficiency; R62.7 Adult failure to thrive; B96.1 Klebsiella pneumoniae [K. pneumoniae] as the cause of diseases classified elsewhere

== ENCOUNTER 2024-08-21 12:19 | Inpatient (IN) ==
[2024-08-21 12:55] LABS: Base Excess VBG 1.1 mEq/L; HCO3 VBG 25 mmol/L; Oxygen Saturation VBG < 60.0 %; PCO2 VBG 37 mmHg (38-50); PO2 VBG 22 mmHg; pH VBG 7.44 (7.36-7.41)
--- NOTE | 2024-08-21 13:05 | Emergency Department Note ---
Impression & Plan Acute hypokalemia, Influenza A (H1N1), Parainfluenza infection, Acute kidney injury superimposed on chronic kidney disease ED Provider Note HISTORY OF PRESENT ILLNESS: Patient is a 78-year-old male presenting with multitude of complaints. provides most of history even though patient is able to speak for himself. reports that the patient resides at [facility] for rehab and she is concerned because they are "taking terrible care of him." She reports that the patient has been having upper respiratory congestion and cough productive of a white phlegm for the last few days. No reported chest pain or shortness of breath. Patient was prescribed a Z-Pedro by the facility. Patient has a Devlin catheter in place. He denies any abdominal pain, nausea or vomiting. He reports he feels very weak. does not feel comfortable with the patient being discharged back to [facility]. Patient's also wants the patient to "get fluids because he is obviously dehydrated and also have his oncologist consulted for a PET scan." She states that he has not been eating or drinking over the last few days. When prompted about this, the patient just that he is not interested in eating or drinking. ROS: as above PHYSICAL EXAM: Constitutional: Patient appears in no acute distress. HENT: Head: Normocephalic and atraumatic. Eyes: EOMI, PERRL Mouth/Throat: Mucous membranes moist. Neck: Trachea midline. Neck supple. Cardiovascular: RRR, No murmurs, rubs or gallops. Intact distal pulses. Pulmonary/Chest: No respiratory distress. Breath sounds clear and equal bilaterally. No wheezes or rales. Abdominal: Abdomen soft, no tenderness, rebound or guarding. Musculoskeletal: No edema, tenderness or deformity noted. Skin: Warm and dry. No rash, erythema, pallor or cyanosis Psychiatric: Appropriate mood and affect for situation. Neurological: Alert and keenly responsive. CN II-XII grossly intact, moving all extremities equally and fully. MDM: - Vitals signs showed hypertension - History obtained via patient's and patient. History as above. - Chronic conditions affecting care: PE; CKD; bladder cancer; COPD - Differential diagnoses include, but are not limited to: dehydration; electrolyte abnormality; pneumonia; viral syndrome; UTI - Order placed for continuous cardiac monitoring. At this time, monitor showed rate of 77 bpm with normal sinus rhythm, per my interpretation. - External medical records reviewed. Discharge summary dated 08/11/2024 was reviewed. Patient was admitted for an unwitnessed fall and asymptomatic bacteriuria. - EKG interpreted by myself showed normal sinus rhythm. Rate 75 bpm. QT prolonged at 438. No acute ischemic changes. - Laboratory workup interpreted by myself showed normal WBC; slightly elevated INR (1.2); hypokalemia (K 3.3); VIOLETA on CKD (Cr 1.42); normal BNP; normal troponin - CXR negative for pneumonia, per my interpretation - Viral respiratory panel positive for influenza A (H1N1) and parainfluenza - Patient given 500 cc NS - Discussion was had with counseling case manager about patient's case and need for admission - Hospitalist consulted for admission - [facility] ASSESSMENT AND PLAN: Diagnosis: VIOLETA on CKD; influenza A; parainfluenza infection; acute hypokalemia Plan: Admit Past Med/Surg History Problem List (Updated 08/21/24 @ 14:47 by Chanell Young MD) Acute kidney injury superimposed on chronic kidney disease (Acute) Parainfluenza infection (Acute) Influenza A (H1N1) (Acute) Acute hypokalemia (Acute) Bacteriuria Recurrent UTI Anxiety Delirium Elevated blood pressure reading Complicated UTI (urinary tract infection) (Acute) Chronic indwelling Devlin catheter (Acute) Mild cognitive impairment Hx of prostatic malignancy ~ 2013- s/p Lupron and XRT Myocarditis Primary bladder malignant neoplasm Orthostatic hypotension Coagulopathy (Acute) Obstructive sleep apnea (Acute) Adrenal insufficiency (Acute 06/04/14) Bladder cancer (Acute) S/P IVC filter Stage 3 chronic kidney disease (Acute) History of pulmonary embolism hx "many years ago" unknown etiology History of DVT (deep vein thrombosis) hx "many years ago" unknown etiology acute on chronic DVT during 12/2022 [facility] admission- Coumadin d/c'ed due to anemia and hematuria; IVC filter placed 12/28/22 COPD (chronic obstructive pulmonary disease) (Chronic) well controlled. uses Breo daily with exercise Aortic stenosis Mild per 12/2022 ECHO -follows annually with cardiology Medical History Fracture of multiple teeth Sacral pressure sore Ambulatory dysfunction Generalized weakness Anemia Urethral stricture Ascending aorta dilation Mild- 4.4cm per 11/2022 ECHO Obesity Venous insufficiency (chronic) (peripheral) Radiation cystitis Kidney stones x1 episode. no surgery needed. Cardiac arrest hx r/t IV Contrast Dye "many years ago" Allergic rhinitis Contrast media allergy Hiatal hernia Surgical History S/P cataract extraction History of right cataract extraction History of colonoscopy H/O sinus surgery History of appendectomy S/P TURP (status post transurethral resection of prostate) Status post cystoscopy (11/07/13) Family History Father Prostate cancer Brother Prostate cancer Mother Thyroid cancer Cancer Other No family history of adverse response to anesthesia Social History Smoking Status: Unknown if ever smoked Tobacco Type: Cigarettes Second Hand Exposure: Yes; Do You Dip or Chew Tobacco: No; Hx Alcohol Use: No Hx Substance Use: No Preferred Language: Maori Communication Ability: Impaired Visual Impairment: Limited Hearing Ability: Normal Beam Worker Required: No Beliefs That Will Affect Care: None marital status: Current Living Situation: Spouse Current Living Situation Comment: at home with current occupational status: retired How many Children do You have: 0 Feels Safe at Home: Yes Diet: regular during the past year weight has: decreased > 10 lbs Seatbelt Use: always Do you think of yourself as: straight/heterosexual Gender Identity: Male Assistive Devices: Bedside Commode, Hospital Bed and Walker Allergies Allergies Allergy/AdvReac Type Severity Reaction Status Date / Time Iodinated Contrast Media Allergy Severe LOVERSOL---CARDIAC Verified 06/22/24 13:[address] CONTRAST clindamycin Allergy Intermediate Rash Verified 06/22/24 13:25 cranberry Allergy Verified 07/30/24 12:19 chocolate flavor AdvReac Severe DIARRHEA/ Verified 06/22/24 13:25 Cannot take, interacts w/ medications. pembrolizumab [From Clinical Ink] AdvReac Intermediate myocarditis Verified 06/22/24 13:25 Home Meds Home Medications Medication Instructions Recorded Confirmed methocarbamol 500 mg tablet 500 mg PO DAILY 12/13/24 12/13/24 mirabegron 25 mg tablet,extended 25 mg PO DAILY 07/28/24 07/28/24 release 24 hr (Myrbetriq) sennosides 8.6 mg tablet (senna) 8.6 mg PO DAILY PRN Constipation 07/28/24 07/28/24 Previous Rx's Medication Instructions Recorded acetaminophen 325 mg tablet 650 mg (2 x 325 mg) PO Q4H PRN 06/08/24 fever or pain #30 tabs albuterol sulfate 90 mcg/actuation 2 puff inhalation Q4H PRN 06/08/24 aerosol inhaler Shortness Of Breath Or Wheezing #16 grams ascorbic acid (vitamin C) 1,000 mg 1,000 mg PO DAILY #30 tabs 06/08/24 tablet aspirin 81 mg tablet,delayed 81 mg PO DAILY #30 tabs 06/08/24 release cholecalciferol (vitamin D3) 125 125 mcg PO DAILY #30 tabs 06/08/24 mcg (5,000 unit) tablet (Vitamin D3) cyanocobalamin (vitamin B-12) 1,000 mcg PO DAILY #30 tabs 06/08/24 1,000 mcg tablet epinephrine 0.3 mg/0.3 mL 0.3 mg (0.3 mL) IM UD PRN 06/08/24 injection, auto-injector Anaphylaxis #3 ea ferrous sulfate 325 mg (65 mg 325 mg PO DAILY #30 tabs 06/08/24 iron) tablet,delayed release fludrocortisone 0.1 mg tablet 0.1 mg PO DAILY #30 tabs 06/08/24 fluticasone fur. 200 mcg-umeclid 1 inh inhalation DAILY #1 ea 06/08/24 62.5 mcg-vilant 25 mcg inhalat.powder (Trelegy Ellipta) lidocaine 5 % topical patch 2 patch transdermal DAILY #20 ea 06/08/24 magnesium chloride 64 mg 64 mg PO BID #60 tabs 06/08/24 (magnesium chloride) tablet,delayed release memantine 10 mg tablet 10 mg PO BID #60 tabs 06/08/24 multivitamin with minerals-folic 1 tab PO DAILY #30 tabs 06/08/24 acid 200 mcg chewable tablet (Multivitamin Gummies) nystatin 100,000 unit/gram topical 1 applic EXT BID #30 grams 06/08/24 powder (Nystop) omeprazole 20 mg capsule,delayed 20 mg PO DAILY #30 caps 06/08/24 release solifenacin 5 mg tablet 5 mg PO DAILY #30 tabs 06/08/24 hydrocortisone 10 mg tablet 10 mg PO 1500 #0 tabs 07/07/24 (Cortef) hydrocortisone 10 mg tablet 20 mg (2 x 10 mg) PO QAM #0 tabs 07/07/24 (Cortef) Results & Data (ED) Vital Signs Vital Signs - 24 hr 08/21/24 12:25 08/21/24 12:45 08/21/24 12:45 Temperature 36.5 C Temperature Source Skin Pulse Rate 81 Pulse Rate from SpO2 Sensor Respiratory Rate 22 Respiratory Effort / Characteristics Non-Labored Spontaneous Respiratory Depth Normal Blood Pressure 145/78 H Blood Pressure Mean 100 Pulse Oximetry 97 Oxygen Delivery Method Room Air Room Air Sepsis Recent Fever Within 48 Hours No Sepsis New/Unexplained Change in Mental Status N/A Sepsis Action Taken by Nursing No Action Required 08/21/24 12:57 08/21/24 13:04 08/21/24 13:12 Temperature Temperature Source Pulse Rate 79 77 77 Pulse Rate from SpO2 Sensor 80 Respiratory Rate 23 23 Respiratory Effort / Characteristics Respiratory Depth Blood Pressure Blood Pressure Mean Pulse Oximetry 99 Oxygen Delivery Method Sepsis Recent Fever Within 48 Hours Sepsis New/Unexplained Change in Mental Status Sepsis Action Taken by Nursing 08/21/24 13:30 08/21/24 13:51 08/21/24 14:00 Temperature Temperature Source Pulse Rate 79 80 77 Pulse Rate from SpO2 Sensor Respiratory Rate 20 17 Respiratory Effort / Characteristics Respiratory Depth Blood Pressure Blood Pressure Mean Pulse Oximetry Oxygen Delivery Method Sepsis Recent Fever Within 48 Hours Sepsis New/Unexplained Change in Mental Status Sepsis Action Taken by Nursing 08/21/24 14:01 08/21/24 14:01 08/21/24 14:01 Temperature Temperature Source Pulse Rate Pulse Rate from SpO2 Sensor Respiratory Rate Respiratory Effort / Characteristics Respiratory Depth Blood Pressure 158/81 H 158/81 H 158/81 H Blood Pressure Mean 125 125 125 Pulse Oximetry Oxygen Delivery Method Sepsis Recent Fever Within 48 Hours Sepsis New/Unexplained Change in Mental Status Sepsis Action Taken by Nursing 08/21/24 14:01 08/21/24 14:03 08/21/24 14:15 Temperature Temperature Source Pulse Rate 76 76 Pulse Rate from SpO2 Sensor Respiratory Rate 21 16 Respiratory Effort / Characteristics Respiratory Depth Blood Pressure 158/81 H Blood Pressure Mean 125 Pulse Oximetry Oxygen Delivery Method Sepsis Recent Fever Within 48 Hours Sepsis New/Unexplained Change in Mental Status Sepsis Action Taken by Nursing 08/21/24 14:30 08/21/24 14:30 Temperature Temperature Source Pulse Rate 77 Pulse Rate from SpO2 Sensor Respiratory Rate Respiratory Effort / Characteristics Respiratory Depth Blood Pressure 161/97 H Blood Pressure Mean 119 Pulse Oximetry Oxygen Delivery Method Sepsis Recent Fever Within 48 Hours Sepsis New/Unexplained Change in Mental Status Sepsis Action Taken by Nursing Laboratory Data 08/21/24 12:44 08/21/24 12:44 Lab Results 08/21/24 08/21/24 Range/Units 12:42 12:44 WBC 9.38 (4.8-10.8) K/ul RBC 4.30 L (4.70-6.10) M/uL Hgb 11.7 L (14.0-18.0) g/dl Hct 37.0 L (42.0-52.0) % MCV 86.0 (80.0-100.0) fL MCH 27.2 (25.0-34.0) pg MCHC 31.6 L (32.0-36.0) g/dL RDW Std Deviation 53.4 H (36.4-46.3) fL RDW Coeff of Robert 16.8 H (11.5-14.5) % Plt Count 284 (130-400) K/uL MPV 8.8 L (9.4-12.4) fL Immature Gran % (Auto) 0.4 % Neut % (Auto) 91.9 % Lymph % (Auto) 4.1 % [place] % (Auto) 3.1 % Eos % (Auto) 0.3 % Baso % (Auto) 0.2 % Neut # (Auto) 8.62 H (1.40-6.50) K/uL Lymph # (Auto) 0.38 L (1.20-3.40) K/uL [place] # (Auto) 0.29 (0.11-0.59) K/uL Eos # (Auto) 0.03 (0.00-0.50) K/uL Baso # (Auto) 0.02 (0.00-0.20) K/uL Immature Gran # (Auto) 0.04 (0.01-0.20) K/uL PT 12.4 H (9.0-12.0) Seconds INR 1.2 H (0.9-1.1) VBG pH 7.44 H (7.36-7.41) VBG pCO2 37 L (38-50) mmHg VBG pO2 22 mmHg VBG HCO3 25 mmol/L VBG O2 Saturation < 60.0 % VBG Base Excess 1.1 mEq/L Sodium 142 (136-145) mmol/L Potassium 3.3 L (3.5-5.1) mmol/L Chloride 105 (98-107) mmol/L Carbon Dioxide 23 (21-32) mmol/L Anion Gap 14 H (3-11) BUN 23 (6-23) mg/dl Creatinine 1.42 H (0.6-1.4) mg/dl Est Cr Clr Drug Dosing 50.7 ml/min eGFR 50.89 BUN/Creatinine Ratio 16.2 (10-20) Glucose 112 H (70-99(Fasting)) mg/dl Calcium 9.1 (8.6-10.3) mg/dl Magnesium 1.7 (1.7-2.4) mg/dl Total Bilirubin 0.6 (0.2-1.0) mg/dl AST 13 (13-39) U/L ALT 10 (7-52) U/L Alkaline Phosphatase 113 H (34-104) U/L Troponin I High Sens 8.5 (0-20) pg/ml B-Natriuretic Peptide 51 (0-100) pg/ml Total Protein 7.5 (6.0-8.3) gm/dl Albumin 3.7 (3.4-5.0) gm/dl Globulin 3.8 (2.5-4.0) gm/dl Albumin/Globulin Ratio 1.0 (0.9-2) Nasal Influ A H1 2008 PCR DETECTED A (NotDetected) Adenovirus (PCR) Not Detected (NotDetected) B. pertussis DNA (PCR) Not Detected (NotDetected) B.parapertussis DNA PCR Not Detected (NotDetected) C. pneumoniae DNA (PCR) Not Detected (NotDetected) Coronavirus OC43 (PCR) Not Detected (NotDetected) Coronavirus HKU1 (PCR) Not Detected (NotDetected) Coronavirus 229E (PCR) Not Detected (NotDetected) SARS-CoV-2 (PCR) Not Detected (NotDetected) Coronavirus NL63 (PCR) Not Detected (NotDetected) Human Metapneumovir PCR Not Detected (NotDetected) Influenza Type B (PCR) Not Detected (NotDetected) M. pneumoniae (PCR) Not Detected (NotDetected) Parainfluenza 1 (PCR) Not Detected (NotDetected) Parainfluenza 2 (PCR) DETECTED A (NotDetected) Parainfluenza 3 (PCR) Not Detected (NotDetected) Parainfluenza 4 (PCR) Not Detected (NotDetected) RSV (PCR) Not Detected (NotDetected) Entero/Rhino (PCR) Not Detected (NotDetected) Administered Medications Discontinued Medications Sodium Chloride (Nss) 500 mls @ 999 mls/hr IV .Q31M ONE Stop: 08/21/24 14:49 Last Admin: 08/21/24 14:22 Dose: 999 mls/hr Documented By: PRISCA Imaging Data Radiologist's Impression: Chest X-Ray 08/21/24 12:23 XR chest 1V portable CLINICAL HISTORY: Dyspnea TECHNIQUE: Single frontal radiograph of the chest was obtained. Comparison: Comparison is made to chest radiograph 07/28/2024 FINDINGS: No lines and tubes are seen. Calcified aortic knob is seen. The lungs are clear. Blunting of left costophrenic angle may represent atelectasis versus trace effusion. IMPRESSION: Possible trace left pleural effusion. ACT 112: Negative or not required by law. Electronically signed by: Alonso Fay M.D. 08/21/2024 1:26 PM Discharge Plan Visit Data Chief Complaint: Cough Stated Complaint: tesing request ED Provider: Chanell Young Discharge Problem: Acute hypokalemia, Influenza A (H1N1), Parainfluenza infection, Acute kidney injury superimposed on chronic kidney disease Forms Stand Alone Forms: [facility] Prescriptions Prescriptions: No Action hydrocortisone [Cortef] 10 mg tablet 10 mg PO 1500 Qty: 0 0RF Rx Instructions: for 1 week, then go back to 20mg in am. and 10mg at 1500 hydrocortisone [Cortef] 10 mg tablet 20 mg PO QAM Qty: 0 0RF methocarbamol 500 mg tablet 500 mg PO DAILY sennosides [senna] 8.6 mg Tablet 8.6 mg PO DAILY PRN (Reason: Constipation) mirabegron [Myrbetriq] 25 mg tablet extended release 24 hr 25 mg PO DAILY Rx Instructions: RECENT FILL PT COULD NOT CONFIRM acetaminophen 325 mg Tablet 650 mg PO Q4H PRN (Reason: fever or pain) Qty: 30 0RF memantine 10 mg Tablet 10 mg PO BID Qty: 60 0RF lidocaine 5 % Adhesive Patch,Medicated 2 patch transdermal DAILY Qty: 20 0RF nystatin [Nystop] 100,000 unit/gram Powder 1 applic EXT BID Qty: 30 0RF ascorbic acid (vitamin C) 1,000 mg Tablet 1,000 mg PO DAILY Qty: 30 0RF cyanocobalamin (vitamin B-12) 1,000 mcg Tablet 1,000 mcg PO DAILY Qty: 30 0RF aspirin 81 mg Tablet,Delayed Release (Dr/Ec) 81 mg PO DAILY Qty: 30 0RF omeprazole 20 mg capsule,delayed release(DR/EC) 20 mg PO DAILY Qty: 30 0RF epinephrine 0.3 mg/0.3 mL Auto-Injector 0.3 mg IM UD PRN (Reason: Anaphylaxis) Qty: 3 0RF Rx Instructions: prn anaphylaxis albuterol sulfate 90 mcg/actuation HFA aerosol inhaler 2 puff INHALATION Q4H PRN (Reason: Shortness Of Breath Or Wheezing) Qty: 16 0RF ferrous sulfate 325 mg (65 mg iron) Tablet,Delayed Release (Dr/Ec) 325 mg PO DAILY Qty: 30 0RF fludrocortisone 0.1 mg tablet 0.1 mg PO DAILY Qty: 30 0RF solifenacin 5 mg tablet 5 mg PO DAILY Qty: 30 0RF magnesium chloride 64 mg Tablet,Delayed Release (Dr/Ec) 64 mg PO BID Qty: 60 0RF cholecalciferol (vitamin D3) [Vitamin D3] 125 mcg (5,000 unit) Tablet 125 mcg PO DAILY Qty: 30 0RF multivit with min-folic acid [Multivitamin Gummies] 200 mcg Tablet,Chewable 1 tab PO DAILY Qty: 30 0RF Trelegy Ellipta 200-62.5-25 mcg blister with device 1 inh INHALATION DAILY Qty: 1 0RF Referrals Referrals: Deondre Hill MD [Primary Care Provider] -
[2024-08-21 13:07] LABS: Hemoglobin 11.7 g/dl (14.0-18.0); Mean Corpuscular Hemoglobin 27.2 pg (25.0-34.0); Mean Corpuscular Hgb Conc 31.6 g/dL (32.0-36.0); Mean Platelet Volume 8.8 fL (9.4-12.4); Platelet Count 284 K/uL (130-400); RDW Coefficient of Variation 16.8 % (11.5-14.5); RDW Standard Deviation 53.4 fL (36.4-46.3); White Blood Count 9.38 K/ul (4.8-10.8)
[2024-08-21 13:25] LABS: Basophils # (auto) 0.02 K/uL (0.00-0.20); Basophils % (auto) 0.2 %; Eosinophils # (auto) 0.03 K/uL (0.00-0.50); Eosinophils % (auto) 0.3 %; Immature Granulocytes # (auto) 0.04 K/uL (0.01-0.20); Immature Granulocytes % (auto) 0.4 %; Lymphocytes # (auto) 0.38 K/uL (1.20-3.40); Lymphocytes % (auto) 4.1 %; Monocytes # (auto) 0.29 K/uL (0.11-0.59); Monocytes % (auto) 3.1 %; Neutrophils # (auto) 8.62 K/uL (1.40-6.50); Neutrophils % (auto) 91.9 %
--- NOTE | 2024-08-21 13:27 | XRay Report ---
XR chest 1V portable CLINICAL HISTORY: Dyspnea TECHNIQUE: Single frontal radiograph of the chest was obtained. Comparison: Comparison is made to chest radiograph 07/28/2024 FINDINGS: No lines and tubes are seen. Calcified aortic knob is seen. The lungs are clear. Blunting of left cos tophrenic angle may represent atelectasis versus trace effusion. IMPRESSION: Possible trace left pleural effusion. ACT 112: Negative or not required by law. Electronically signed by: Alonso Fay M.D. 08/21/2024 1:26 PM
[2024-08-21 13:28] LABS: INR 1.2 (0.9-1.1); Prothrombin Time 12.4 Seconds (9.0-12.0)
[2024-08-21 13:36] LABS: Albumin Level 3.7 gm/dl (3.4-5.0); BUN Creatinine Ratio 16.2 (10-20); Bilirubin,Total 0.6 mg/dl (0.2-1.0); Calcium 9.1 mg/dl (8.6-10.3); Creatinine Clr Calc Pharmacy 50.7 ml/min; Globulin 3.8 gm/dl (2.5-4.0); Magnesium 1.7 mg/dl (1.7-2.4); Potassium 3.3 mmol/L (3.5-5.1); Total Protein 7.5 gm/dl (6.0-8.3); Troponin I High Sensitivity 8.5 pg/ml (0-20)
[2024-08-21 14:03] LABS: Adenovirus PCR Not Detected (NotDetected); Bordetella parapertussis PCR Not Detected (NotDetected); Bordetella pertussis PCR Not Detected (NotDetected); Chlamydia pneumoniae PCR Not Detected (NotDetected); Coronavirus 229E PCR Not Detected (NotDetected); Coronavirus CoV-2 (COVID19)PCR Not Detected (NotDetected); Coronavirus HKU1 PCR Not Detected (NotDetected); Coronavirus NL63 PCR Not Detected (NotDetected); Coronavirus OC43PCR Not Detected (NotDetected); Human Metapneumovirus PCR Not Detected (NotDetected); Influenza A (H1 2009) PCR DETECTED (NotDetected); Influenza B PCR Not Detected (NotDetected); Mycoplasma pneumoniae PCR Not Detected (NotDetected); Parainfluenza Virus 1 PCR Not Detected (NotDetected); Parainfluenza Virus 2 PCR DETECTED (NotDetected); Parainfluenza Virus 3 PCR Not Detected (NotDetected); Parainfluenza Virus 4 PCR Not Detected (NotDetected); Respiratory Syncytial VirusPCR Not Detected (NotDetected); Rhinovirus/Enterovirus PCR Not Detected (NotDetected)
[2024-08-21] MEDS: SODIUM CHLORIDE 0.9% 500 ML IV ONE ×2 (14:22→16:32)
--- NOTE | 2024-08-21 15:42 | History & Physical Report ---
Date of Service August 21, 2024 Assessment & Plan (1) Influenza A (H1N1): Plan: -complicated by VIOLETA,positive on biofire, complicated by parainfluenza and known COPD -on room air currently, weak and fatigued Plan: -tamiflu x5 days -500cc bolus NS -tessalon perles for cough -incentive spirometer ordered -scheduled duonebs ordered, albuterol prn, trelegy -respiratory culture to r/o developing concominant CAP (although no fever/vitals/labs reassuring) (2) Parainfluenza infection: Plan: -concominant with above -see above for treatment (3) Acute kidney injury superimposed on chronic kidney disease: Plan: -as noted by baseline creatinine 1, current 1.4 -likely 2/2 flu and poor PO intake Plan: -trend creatinine -500 cc bolus NS -supportive care (4) Delirium: Plan: -superimposed on dementia, 2/2 acute illness/new location Plan: -check B12 -vitamin supplementation -delirium precautions (5) Acute hypokalemia: Plan: -replenish (6) Dementia: Plan: -as noted in chart, physical exam as well -continue memantine, lexapro, mirabregnon (7) Aortic stenosis: Plan: -as noted on echo (8) History of pulmonary embolism: Plan: -cannot be on blood thinner 2/2 bleeding (9) Bladder cancer: Plan: -unable to tolerate keytruda (10) Adrenal insufficiency: Plan: -continue hydrocortisone, omeprazole Plan Feeding/fluids: regular Analgesia: tylenol Sedation: none Thromboprophylaxis: lovenox Head up position: 30 degrees Ulcer prophylaxis: omeprazole Glycemic control: none Spontaneous breathing trial: none Bowel care: senna, miralax Indwelling catheter removal: chronic tatum Deescalation of antibiotics: none I spent a total of 75 minutes coordinating, documenting, and providing care for this patient excluding time spent in the performance of separately billed services. History of Present Illness Chief Complaint: weakness, fatigue. Primary Care Provider: Deondre Hill MD 78 yo male with pmhx adrenal insufficiency on chronic steroids, bronchial asthma/COPD, obstructive sleep apnea, history of DVT/PE s/p IVC filter no longer on anticoagulation due to bleeding issues, bladder cancer s/p surgery off of Keytruda secondary to development of myocarditis, prostate cancer s/p radiation therapy, ,moderate aortic stenosis, mild aortic regurgitation, hypertension, orthostatic hypotension, mild cognitive impairment and dementia, urinary incontinence, currently on chronic Tatum, chronic venous insufficiency, CKD stage III who presents for weakness/fatigue. Accompanied by daughter who provides majority of history. For the past few days/week since discharge at his new SNF she states he has not been receiving his meds or being fed. She states that he also developed a cough, weakness, and fatigue over the past few days. Associated symptoms include shortness of breath, denies chest pain, nausea, vomiting. Daughter is next of kin, would like full code at this time. No tobacco, alcohol use. Lives at SNF currently but will be going [facility] with [facility] (discussed with daughter) Allergies Allergy/AdvReac Type Severity Reaction Status Date / Time Iodinated Contrast Media Allergy Severe LOVERSOL---CARDIAC Verified 06/22/24 13:[address] CONTRAST clindamycin Allergy Intermediate Rash Verified 06/22/24 13:25 cranberry Allergy Verified 07/30/24 12:19 chocolate flavor AdvReac Severe DIARRHEA/ Verified 06/22/24 13:25 Cannot take, interacts w/ medications. pembrolizumab [From [employer]] AdvReac Intermediate myocarditis Verified 06/22/24 13:25 Home Medications Medication Instructions Recorded Confirmed Type acetaminophen 325 mg tablet 650 mg (2 x 325 mg) PO Q4H PRN 06/08/24 08/21/24 Rx fever or pain #30 tabs ascorbic acid (vitamin C) 1,000 mg 1,000 mg PO DAILY #30 tabs 06/08/24 08/21/24 Rx tablet aspirin 81 mg tablet,delayed 81 mg PO DAILY #30 tabs 06/08/24 08/21/24 Rx release cholecalciferol (vitamin D3) 125 125 mcg PO DAILY #30 tabs 06/08/24 08/21/24 Rx mcg (5,000 unit) tablet (Vitamin D3) cyanocobalamin (vitamin B-12) 1,000 mcg PO DAILY #30 tabs 06/08/24 08/21/24 Rx 1,000 mcg tablet epinephrine 0.3 mg/0.3 mL 0.3 mg (0.3 mL) IM UD PRN 06/08/24 08/21/24 Rx injection, auto-injector Anaphylaxis #3 ea ferrous sulfate 325 mg (65 mg 325 mg PO DAILY #30 tabs 06/08/24 08/21/24 Rx iron) tablet,delayed release fluticasone fur. 200 mcg-umeclid 1 inh inhalation DAILY #1 ea 06/08/24 08/21/24 Rx 62.5 mcg-vilant 25 mcg inhalat.powder (Trelegy Ellipta) lidocaine 5 % topical patch 2 patch transdermal DAILY #20 ea 06/08/24 08/21/24 Rx magnesium chloride 64 mg 64 mg PO BID #60 tabs 06/08/24 08/21/24 Rx (magnesium chloride) tablet,delayed release memantine 10 mg tablet 10 mg PO BID #60 tabs 06/08/24 08/21/24 Rx multivitamin with minerals-folic 1 tab PO DAILY #30 tabs 06/08/24 08/21/24 Rx acid 200 mcg chewable tablet (Multivitamin Gummies) nystatin 100,000 unit/gram topical 1 applic EXT BID #30 grams 06/08/24 08/21/24 Rx powder (Nystop) omeprazole 20 mg capsule,delayed 20 mg PO DAILY #30 caps 06/08/24 08/21/24 Rx release solifenacin 5 mg tablet 5 mg PO DAILY #30 tabs 06/08/24 08/21/24 Rx hydrocortisone 10 mg tablet 10 mg PO 1500 #0 tabs 07/07/24 08/21/24 Rx (Cortef) hydrocortisone 10 mg tablet 20 mg (2 x 10 mg) PO QAM #0 tabs 07/07/24 08/21/24 Rx (Cortef) methocarbamol 500 mg tablet 500 mg PO UD 07/28/24 08/21/24 History mirabegron 25 mg tablet,extended 25 mg PO DAILY 07/28/24 08/21/24 History release 24 hr (Myrbetriq) sennosides 8.6 mg tablet (senna) 8.6 mg PO DAILY PRN Constipation 07/28/24 08/21/24 History albuterol sulfate 90 mcg/actuation 2 puff inhalation Q6H PRN 08/21/24 08/21/24 History aerosol inhaler Shortness Of Breath Or Wheezing azithromycin 1 tab PO DIRECTED 08/21/24 08/21/24 History escitalopram oxalate 5 mg tablet 5 mg PO UD 08/21/24 08/21/24 History fludrocortisone 0.1 mg tablet 0.1 mg PO UD 08/21/24 08/21/24 History Past Med/Surg History Problem List (Updated 08/21/24 @ 15:59 by Sai Sunshine MD) Dementia Acute kidney injury superimposed on chronic kidney disease (Acute) Parainfluenza infection (Acute) Influenza A (H1N1) (Acute) Acute hypokalemia (Acute) Delirium Chronic indwelling Tatum catheter (Acute) Mild cognitive impairment Hx of prostatic malignancy ~ 2013- s/p Lupron and XRT Obstructive sleep apnea (Acute) Adrenal insufficiency (Acute 06/04/14) Bladder cancer (Acute) Stage 3 chronic kidney disease (Acute) History of pulmonary embolism hx "many years ago" unknown etiology Aortic stenosis Mild per 12/2022 ECHO -follows annually with cardiology Medical History (Updated 08/21/24 @ 15:59 by Sai Sunshine MD) Weakness Recurrent UTI Anxiety Elevated blood pressure reading Complicated UTI (urinary tract infection) Myocarditis Primary bladder malignant neoplasm Orthostatic hypotension Coagulopathy History of DVT (deep vein thrombosis) hx "many years ago" unknown etiology acute on chronic DVT during 12/2022 [facility] admission- Coumadin d/c'ed due to anemia and hematuria; IVC filter placed 12/28/22 COPD (chronic obstructive pulmonary disease) well controlled. uses Breo daily with exercise Fracture of multiple teeth Sacral pressure sore Ambulatory dysfunction Anemia Urethral stricture Ascending aorta dilation Mild- 4.4cm per 11/2022 ECHO Obesity Venous insufficiency (chronic) (peripheral) Radiation cystitis Kidney stones x1 episode. no surgery needed. Cardiac arrest hx r/t IV Contrast Dye "many years ago" Allergic rhinitis Contrast media allergy Hiatal hernia Surgical History S/P IVC filter S/P cataract extraction History of right cataract extraction History of colonoscopy H/O sinus surgery History of appendectomy S/P TURP (status post transurethral resection of prostate) Status post cystoscopy (11/07/13) Family History Father Prostate cancer Brother Prostate cancer Mother Thyroid cancer Cancer Other No family history of adverse response to anesthesia Social History Smoking Status: Unknown if ever smoked Tobacco Type: Cigarettes Second Hand Exposure: Yes; Do You Dip or Chew Tobacco: No; Hx Alcohol Use: No Hx Substance Use: No Preferred Language: Lao Communication Ability: Impaired Visual Impairment: Limited Hearing Ability: Normal Harmonic Analyst Required: No Beliefs That Will Affect Care: None marital status: Current Living Situation: Spouse Current Living Situation Comment: at home with current occupational status: retired How many Children do You have: 0 Feels Safe at Home: Yes Diet: regular during the past year weight has: decreased > 10 lbs Seatbelt Use: always Do you think of yourself as: straight/heterosexual Gender Identity: Male Assistive Devices: Bedside Commode, Hospital Bed and Walker Review of Systems Review of Systems: Patient is limited historian due to dementia, however, denies chest pain, nausea vomiting. Hx provided by daughter. Physical Exam Physical Exam: Gen: A&O 1-2, NAD HEENT: NCAT, EOMI, not icteric. External ears normal. No rhinorrhea. Moist mucous membranes. Neck: Supple, full range of motion, no observable masses, No meningeal sign. Lungs: No Respiratory distress. CV: RRR, no edema. noted crescendo decrescendo murmur Abdomen: Soft, nondistended, No rebound tenderness. MSK: chronic venous stasis skin changes noted bilateral LE Skin: No rashes, petechiae, lesions. Normal color per patient. Neuro: Normal Gait, Grossly intact. Psych: dementia noted Results & Data Results & Data Vital Signs (Past 12 Hours) Vital Signs Temp Pulse Resp BP Pulse Ox O2 Del Method 08/21/24 14:30 77 08/21/24 14:30 161/97 H 08/21/24 14:15 76 16 08/21/24 14:03 76 21 08/21/24 14:01 158/81 H 08/21/24 14:01 158/81 H 08/21/24 14:01 158/81 H 08/21/24 14:01 158/81 H 08/21/24 14:00 77 17 08/21/24 13:51 80 20 08/21/24 13:30 79 08/21/24 13:12 77 23 08/21/24 13:04 77 08/21/24 12:57 79 23 99 08/21/24 12:45 Room Air 08/21/24 12:25 36.5 C 81 22 145/78 H 97 Room Air Laboratory Results Laboratory Results WBC 9.38 K/ul (4.8-10.8) 08/21/24 12:44 RBC 4.30 M/uL (4.70-6.10) L 08/21/24 12:44 Hgb 11.7 g/dl (14.0-18.0) L 08/21/24 12:44 Hct 37.0 % (42.0-52.0) L 08/21/24 12:44 MCV 86.0 fL (80.0-100.0) 08/21/24 12:44 MCH 27.2 pg (25.0-34.0) 08/21/24 12:44 MCHC 31.6 g/dL (32.0-36.0) L 08/21/24 12:44 RDW Std Deviation 53.4 fL (36.4-46.3) H 08/21/24 12:44 RDW Coeff of Robert 16.8 % (11.5-14.5) H 08/21/24 12:44 Plt Count 284 K/uL (130-400) 08/21/24 12:44 MPV 8.8 fL (9.4-12.4) L 08/21/24 12:44 Immature Gran % (Auto) 0.4 % 08/21/24 12:44 Neut % (Auto) 91.9 % 08/21/24 12:44 Lymph % (Auto) 4.1 % 08/21/24 12:44 [place] % (Auto) 3.1 % 08/21/24 12:44 Eos % (Auto) 0.3 % 08/21/24 12:44 Baso % (Auto) 0.2 % 08/21/24 12:44 Neut # (Auto) 8.62 K/uL (1.40-6.50) H 08/21/24 12:44 Lymph # (Auto) 0.38 K/uL (1.20-3.40) L 08/21/24 12:44 [place] # (Auto) 0.29 K/uL (0.11-0.59) 08/21/24 12:44 Eos # (Auto) 0.03 K/uL (0.00-0.50) 08/21/24 12:44 Baso # (Auto) 0.02 K/uL (0.00-0.20) 08/21/24 12:44 Immature Gran # (Auto) 0.04 K/uL (0.01-0.20) 08/21/24 12:44 PT 12.4 Seconds (9.0-12.0) H 08/21/24 12:44 INR 1.2 (0.9-1.1) H 08/21/24 12:44 VBG pH 7.44 (7.36-7.41) H 08/21/24 12:44 VBG pCO2 37 mmHg (38-50) L 08/21/24 12:44 VBG pO2 22 mmHg 08/21/24 12:44 VBG HCO3 25 mmol/L 08/21/24 12:44 VBG O2 Saturation < 60.0 % 08/21/24 12:44 VBG Base Excess 1.1 mEq/L 08/21/24 12:44 Sodium 142 mmol/L (136-145) 08/21/24 12:44 Potassium 3.3 mmol/L (3.5-5.1) L 08/21/24 12:44 Chloride 105 mmol/L (98-107) 08/21/24 12:44 Carbon Dioxide 23 mmol/L (21-32) 08/21/24 12:44 Anion Gap 14 (3-11) H 08/21/24 12:44 BUN 23 mg/dl (6-23) 08/21/24 12:44 Creatinine 1.42 mg/dl (0.6-1.4) H 08/21/24 12:44 Est Cr Clr Drug Dosing 50.7 ml/min 08/21/24 12:44 eGFR 50.89 08/21/24 12:44 BUN/Creatinine Ratio 16.2 (10-20) 08/21/24 12:44 Glucose 112 mg/dl (70-99(Fasting)) H 08/21/24 12:44 Calcium 9.1 mg/dl (8.6-10.3) 08/21/24 12:44 Magnesium 1.7 mg/dl (1.7-2.4) 08/21/24 12:44 Total Bilirubin 0.6 mg/dl (0.2-1.0) 08/21/24 12:44 AST 13 U/L (13-39) 08/21/24 12:44 ALT 10 U/L (7-52) 08/21/24 12:44 Alkaline Phosphatase 113 U/L (34-104) H 08/21/24 12:44 Troponin I High Sens 8.5 pg/ml (0-20) 08/21/24 12:44 B-Natriuretic Peptide 51 pg/ml (0-100) 08/21/24 12:44 Total Protein 7.5 gm/dl (6.0-8.3) 08/21/24 12:44 Albumin 3.7 gm/dl (3.4-5.0) 08/21/24 12:44 Globulin 3.8 gm/dl (2.5-4.0) 08/21/24 12:44 Albumin/Globulin Ratio 1.0 (0.9-2) 08/21/24 12:44 Nasal Influ A H1 2009 PCR DETECTED (NotDetected) A 08/21/24 12:42 Adenovirus (PCR) Not Detected (NotDetected) 08/21/24 12:42 B. pertussis DNA (PCR) Not Detected (NotDetected) 08/21/24 12:42 B.parapertussis DNA PCR Not Detected (NotDetected) 08/21/24 12:42 C. pneumoniae DNA (PCR) Not Detected (NotDetected) 08/21/24 12:42 Coronavirus OC43 (PCR) Not Detected (NotDetected) 08/21/24 12:42 Coronavirus HKU1 (PCR) Not Detected (NotDetected) 08/21/24 12:42 Coronavirus 229E (PCR) Not Detected (NotDetected) 08/21/24 12:42 SARS-CoV-2 (PCR) Not Detected (NotDetected) 08/21/24 12:42 Coronavirus NL63 (PCR) Not Detected (NotDetected) 08/21/24 12:42 Human Metapneumovir PCR Not Detected (NotDetected) 08/21/24 12:42 Influenza Type B (PCR) Not Detected (NotDetected) 08/21/24 12:42 M. pneumoniae (PCR) Not Detected (NotDetected) 08/21/24 12:42 Parainfluenza 1 (PCR) Not Detected (NotDetected) 08/21/24 12:42 Parainfluenza 2 (PCR) DETECTED (NotDetected) A 08/21/24 12:42 Parainfluenza 3 (PCR) Not Detected (NotDetected) 08/21/24 12:42 Parainfluenza 4 (PCR) Not Detected (NotDetected) 08/21/24 12:42 RSV (PCR) Not Detected (NotDetected) 08/21/24 12:42 Entero/Rhino (PCR) Not Detected (NotDetected) 08/21/24 12:42 Impressions Chest X-Ray 08/21/24 12:23 XR chest 1V portable CLINICAL HISTORY: Dyspnea TECHNIQUE: Single frontal radiograph of the chest was obtained. Comparison: Comparison is made to chest radiograph 07/28/2024 FINDINGS: No lines and tubes are seen. Calcified aortic knob is seen. The lungs are clear. Blunting of left costophrenic angle may represent atelectasis versus trace effusion. IMPRESSION: Possible trace left pleural effusion. ACT 112: Negative or not required by law. Electronically signed by: Alonso Fay M.D. 08/21/2024 1:26 PM Code Status & VTE Plan VTE Prophylaxis Plan VTE Prophylaxis will be ordered: Yes (6) Dementia Dementia type: unspecified type Dementia severity: moderate Dementia behavioral or psychological symptom: with anxiety Qualified Code(s): F03.B4 - Unspecified dementia, moderate, with anxiety (7) Aortic stenosis Cardiac valve disease etiology: nonrheumatic Qualified Code(s): I35.0 - Nonrheumatic aortic (valve) stenosis (9) Bladder cancer Bladder location: unspecified site Qualified Code(s): C67.9 - Malignant neoplasm of bladder, unspecified
[2024-08-21] MEDS: POTASSIUM CHLORIDE CRTAB 20 MEQ TABCR PO STA (16:32)
[2024-08-21] MEDS ORDERED: ALBUTEROL HFA 8 GM INHALER INH PRN (17:01)
[2024-08-21] MEDS ORDERED: ONDANSETRON INJ 2 MG/ML 2 ML VIAL IV PRN (17:01)
[2024-08-21] MEDS ORDERED: SENNA 8.6 MG TAB PO PRN (17:01)
[2024-08-21] MEDS ORDERED: EPINEPHrine INJ 1 MG/ML AMP IM PRN (17:19)
--- OUTSIDE RECORDS SUMMARY | 2024-08-21 17:40 | External Medical Summary | Summary of Care ---
Author Name Unknown Organization [facility] Address [address] [place] [address] Phone [phone] Care Team Providers Care Criminal Justice Teacher Name Role Phone Chuy Batista MD Primary Care Provider [phone] Reason for Visit * Reason Onset Date Comments Test Results 05/15/2024 Encounter Details Date Type Department Care Team (Late st Contact Info) Description 05/15/2024 Telephone [facility] DEPT CLOSED - 08/03/24 [address] [place] [id number] Deondre Hill MD [address] [place] [address] Test Results Allergies Active Allergy Reactions Criticality Noted Date Comments Chocolate Diarrhea 05/14/2023 Chocolate Flavoring Agent (Non-Screening) High 10/09/2023 Other Reaction(s): DIARRHEA/ Cannot take, interacts w/ medications. Clindamycin Hcl 09/24/2005 rash Cranberry 10/20/2023 Iodinated Contrast Media 10/01/2015 Ioversol Other (Please comment) High 08/10/[address] IV DYE Pembrolizumab High 10/10/2023 Other Reaction(s): myocarditis documented as of this encounter (statuses as of 08/14/2024) Medications Syringe/Needle , Disp, 25G X 1-1/2" [...] ndications:Janene phylaxis, sequela USE DIRECTED 1 Each 023 Active Additional Information Patient not taking.Reported on 07/24/2024 Multi Adult Gummies Oral Tablet Chewable Take by mouth. Activ e Iron 325 [...] Take 119 g by mouth once. Active [facility] Dressing External GelIndications :Pressure injury of sacral region, stage 2 (HCC) Apply topically to affected area daily. Apply to pressure ulcer of buttocks. 88 mL 3 024 Active Additional Information Patient not taking.Reported on 07/24/2024 predniSONE 20 MG Oral Tablet (Deltasone)Ind ications:Uroth [...] the morning. 30 Tablet 6 024 Active Fludrocortison e Acetate 0.1 MG Oral Tablet (Florinef) Take 1 Tablet by mouth in the morning. 30 Tablet 11 024 Active Sulfamethoxazo le-Trimethopri m 800-160 MG Oral [...] Additional Information Patient not taking.Reported on 07/24/2024 Vitamin D 125 MCG (5000 UT) Oral Capsule Take by mouth. 2023 Discontinued(R efill) Omeprazole 20 MG Oral Capsule Delayed Release (PriLOSEC)Denice cations:Gastro esophageal reflux disease, unspecified whether esophagitis present Take 1 Capsule by mouth in the morning. 90 Capsule 1 024 2023 Discontinued Midodrine HCl 5 MG Oral Tablet (Proamatine)In dications:Orth ostatic hypotension Take 1 Tablet by mouth 3 times a day. Take at 8 am, noon, 4 pm 270 Tablet 3 024 2023 Discontinued documented as of this encounter (statuses as of 08/14/2024) Active Problems Problem Noted Date Diagnosed Date [...] (03/27/2019): basal cell carcinoma (L lower galaviz 7/18) ANDRZEJ (obstructive sleep apnea) 08/19/2018 Prostate cancer 06/29/2017 Moderate persistent asthma without complication 04/13/2017 Chronic anticoagulation 04/13/2017 Adrenal insufficiency 04/23/2015 Chronic steroid use 02/21/2015 HTN (hypertension) 10/16/2014 History of DVT in adulthood 08/20/2014 History of pulmonary embolism 04/16/2014 Deviated nasal septum 02/03/2006 ANGIOEDEMA 02/25/2005 documented as of this encounter (statuses as of 08/14/2024) Resolved Problems Problem Noted Date Diagnosed Date [...] as of this encounter (statuses as of 08/14/2024) Immunizations Name Administration Dates Next Due COVID-19 mRNA, LNP-s, No Pre serve, 2-Dose Series (NewACT) 05/30/2021,10/29/2020,10/08/2020 COVID-19, LNP-s, No Preserve , Prosper-sucrose, [...] encounter Miscellaneous Notes * Telephone Encounter - Ashlee Alarcon LPN - 05/15/2024 10:17 AM EDT Called patient. Spoke to I[place], spouse Given message. Verbalized understanding. is doing better. FYI * Telephone Encounter - Ashlee Alarcon LPN - 05/15/2024 10:07 AM EDT ----- Message from Deondre Hill MD sent at 05/14/2024 9:25 PM EDT ----- No UTI on urine culture. Deondre Hill MD documented in this encounter Plan of Treatment Upcoming Encounters Date Type Department Care Team (Late st Contact Info) Description 08/24/2024 8:45 AM EST Telemedicine Hematology/Oncology [facility] [address] [place] [phone] Xavi Gramajo MD [address] [place] [address] 08/28/2024 3:00 PM EST Office Visit Family [facility], [place] [facility] [address] [facility] [place] [address] Chuy Batista MD [address] [facility] [place] [address] 09/04/2024 1:00 PM EST Procedure Only Urology, [place] [address] [place] [address] Ernesto Villareal MD [address], [place] [id number] 09/14/2024 1:00 PM EST Cardiac Studies Cardiac Studies, [facility] [address] [place] [address] 10/13/2024 11:20 AM EST Office Visit Neurology [facility] [address] [place] [address] Ellie Duncan MD [address] [facility] [place] [address] Health Maintenance Due Date Last Done Comments Albumin/Creatinine Ratio 1963 DTap/Tdap Vaccines (1 - Tdap) 1964 Adult Wellness Visit 02/01/2020 01/31/2019 COVID-19 Vaccine ( season) 2024 07/22/2022, 07/22/2022, 02/11/2022, Additional history exists CKD PHOS USE SMARTSET 11860 09/11/202408/17, 09/11/2023, 07/14/2021, Additional history exists Depression Screening 12/26/2024 12/27/2023 GFR 01/22/2025 07/24/2024, 03/17, 11/12/2023, Additional history exists CKD HGB USE SMARTSET 23442 07/24/202507/24, 07/24/2024, 04/12/2024, Additional history exists Pneumococcal Vaccine: 50+ Years Completed 09/24/2020, 07/06/2012 Zoster Vaccines Completed [...] Power of Attor philipp? No Care Teams Criminal Justice Teacher Relationship Specialty Start Date End Date Chuy Batista MD PCP - General Family Medicine 05/31/24 documented as of this encounter
--- OUTSIDE RECORDS SUMMARY | 2024-08-21 17:40 | External Medical Summary | Summary of Care ---
Author Name Unknown Organization [facility] Address [address] [place] [address] Phone [phone] Care Team Providers Care Sawyer Cork Slabs Name Role Phone Arnold Willis MD Primary Care Provider [phone]- [phone] Reason for Visit * Reason Onset Date Comments Test Results 07/25/2024 Encounter Details Date Type Department Care Team (Late st Contact Info) Description 07/25/2024 Telephone [facility] Amanda Singh [address] [id number] Arnold Willis MD [address] [place] [address] Test Results Allergies Active Allergy Reactions Criticality Noted Date Comments Chocolate Diarrhea 05/14/2023 Chocolate Flavoring Agent (Non-Screening) High 10/09/2023 Other Reaction(s): DIARRHEA/ Cannot take, interacts w/ medications. Clindamycin Hcl 09/24/2005 rash Cranberry 10/20/2023 Iodinated Contrast Media 10/01/2015 Ioversol Other (Please comment) High 08/10/[address] IV DYE Pembrolizumab High 10/10/2023 Other Reaction(s): myocarditis documented as of this encounter (statuses as of 07/31/2024) Medications Syringe/Needle, Disp, 25G X 1-1/2" 3 [...] Take by mouth. 024 Discontin ued(Refil l) Mirabegron ER 25 MG Oral Tablet Extended Release 24 Hour (Myrbetriq) Take 1 Tablet by mouth in the morning. 30 Tablet 11 07/26/20 24 024 Discontin ued(Refil l) documented as of this encounter (statuses as of 07/31/2024) Active Problems Problem Noted Date Diagnosed Date [...] as of this encounter (statuses as of 07/31/2024) Resolved Problems Problem Noted Date Diagnosed Date [...] as of this encounter (statuses as of 07/31/2024) Immunizations Name Administration Dates Next Due COVID-19 mRNA, LNP-s, No Pre serve, 2-Dose Series ([place]) 05/30/2021,10/29/2020,10/08/2020 COVID-19, LNP-s, No Preserve , Prosper-sucrose, [...] encounter Miscellaneous Notes * Telephone Encounter - Arnold Willis MD - 07/31/2024 9:19 AM EST I don't mind facilitating them - but would be helpful for hematology to advise if/when needed. Willreview with Dr Gramajo. Looks as though pt re-admitted with fall/UTI * Telephone Encounter - Ana Garcia LPN - 07/26/2024 2:41 PM EST Patient's EC Viet aware and verbalized understanding. Reports that the [...] the requested meds have been sent to [facility]'s. Can let them know that I will make sure that Dr Gramajo is aware of the recent test results. If he feels that patient should have iron infusions, we will let them know. For now, continue oral supplementation. * Telephone Encounter - Nancy Finn PHARM Tech - 07/26/2024 1:37 PM EST Pharmacy calling requesting the following medication below that is listed as "Historical". The following information was provided: Medication Name: methocarbamol Strength: 500mg Directions: 1 tid prn for back pain Preferred Quantity: 90 Previous Prescriber: Dr. Mitchel Norton Preferred Pharmacy: [facility] [address] [place] Medication Name: myrbetric Strength: 25mg tablet Directions: 1 a day Preferred Quantity: 30 Previous Prescriber: Dr. Mitchel Norton Preferred Pharmacy: [facility] [address] [place] Medication Name: vitamin d3 Strength: 125 mcg cap Directions: 1 a day Preferred Quantity: 30 Previous Prescriber: Dr. Mitchel Norton Preferred Pharmacy: [facility] [address] [place] Please review and approve if appropriate. Thank you, Nancy Finn [facility]dnance Technician [facility] 07/26/2024, 1:37 PM * Telephone Encounter - Erick Osborn OSA - 07/26/2024 10:03 AM EST Called the pharmacy to clarify the medications. Pharmacy had wrong fax number. Gave them [phone]. Stated they will refax med refill request * Telephone Encounter - Damari Stock LPN - 07/26/2024 9:08 AM EST Patient is taking iron supplements everyday for months and he has been more tired recently and has had less appetite. Patients spouse states he has received iron infusions at [facility] in the past. She would like to know if this is something he can get to get his strength back and appetite back? She is also asking if this is something he can have done at home or he would need to go to [facility] for? [place] she went to [facility] yesterday to worm picker prescriptions and they did not have [...] 8:45 AM EST Telemedicine Hematology/Oncology [facility] [place] [address] [place] [phone] Xavi Gramajo MD [address] [place] [address] 08/28/2024 3:00 PM EST Office Visit Valarie Lacey [address] [phone] Arnold Willis MD [address] [address] 09/04/2024 1:00 PM EST Procedure Only Urology, [place] [address] [place] [address] Ernesto Villareal MD [address] [place] [address] 09/14/2024 1:00 PM EST Cardiac Studies Cardiac Studies, [facility] [address] [facility] [place] [address] 10/13/2024 11:20 AM EST Office Visit Neurology [facility] [address] [place] [address] Ellie Duncan MD 200 [place] [address] Health Maintenance Due Date Last Done Comments Albumin/Creatinine Ratio 1963 DTap/Tdap Vaccines (1 - Tdap) 1964 Adult Wellness Visit 02/01/2020 01/31/2019 COVID-19 Vaccine ( season) 2024 07/22/2022, 07/22/2022, 02/11/2022, Additional history exists CKD PHOS USE SMARTSET 11598 09/11/202408/17, 09/11/2023, 07/14/2021, Additional history exists Depression Screening 12/26/2024 12/27/2023 GFR 01/22/2025 07/24/2024, 03/17, 11/12/2023, Additional history exists CKD HGB USE SMARTSET 55176 07/24/202507/24, 07/24/2024, 04/12/2024, Additional history exists Pneumococcal [...] of Attor philipp? No Care Teams Sawyer Cork Slabs Relationship Specialty Start Date End Date Arnold Willis MD [address] [place] [address] PCP - General Family Medicine 05/31/24 documented as of this encounter
--- OUTSIDE RECORDS SUMMARY | 2024-08-21 17:40 | External Medical Summary | Summary of Care ---
Author Name Unknown Organization [facility] Address [address] [place] [address] Phone [phone] Care Team Providers Care Shoe Stainer Name Role Phone Chuy Batista MD Primary Care Provider [phone]- [phone] Reason for Visit * Reason Onset Date Comments Nurse Documentation 07/31/2024 Encounter Details Date Type Department Care Team (Late st Contact Info) Description 07/31/[address] [facility] Amanda Singh [address] [phone] Chuy Batista MD [address] [facility] [place] [address] Nurse Documentation Allergies Active Allergy Reactions Criticality Noted Date [...] morning. 30 Tablet 11 07/27/20 24 Active documented as of this encounter [...] Miscellaneous Notes * Telephone Encounter - Edie Kumar MED ASSIST - 07/31/2024 1:47 PM EST Received Fax for BFPROVIDERS: Dr. Chuy Batista ORDER received from [facility] and FAXED documented in this encounter Plan of Treatment Upcoming Encounters Date Type Department Care Team (Late st Contact Info) Description 08/24/2024 8:45 AM EST Telemedicine Hematology/Oncology [facility] [address] [facility] [place] [phone] Xavi Gramajo MD [address] [place] [address] 08/28/2024 3:00 PM EST Office Visit Family [facility], [facility] [address] [place] [phone] Chuy Batista MD [address] [place] [address] 09/04/2024 1:00 PM EST Procedure Only Urology, [place] [address] [place] [address] Ernesto Villareal MD [address], [place] [id number] 09/14/2024 1:00 PM EST Cardiac Studies Cardiac Studies, [facility] [address] [facility] [place] [address] 10/13/2024 11:20 AM EST Office Visit Neurology [facility] 200 [facility] [place] [address] Ellie Duncan MD [address] [place] [address] Health Maintenance Due Date Last Done Comments Albumin/Creatinine Ratio 1963 DTap/Tdap Vaccines (1 - Tdap) 1964 Adult Wellness Visit 02/01/2020 01/31/2019 COVID-19 Vaccine ( season) 2024 07/22/2022, 07/22/2022, 02/11/2022, Additional history exists CKD PHOS USE SMARTSET 29054 09/11/202408/17, 09/11/2023, 07/14/2021, Additional history exists Depression Screening 12/26/2024 12/27/2023 GFR 01/22/2025 07/24/2024, 03/17, 11/12/2023, Additional history exists CKD HGB USE SMARTSET 27899 07/24/202507/24, 07/24/2024, 04/12/2024, Additional history exists Pneumococcal [...] Power of Attor philipp? No Care Teams Shoe Stainer Relationship Specialty Start Date End Date Chuy Batista MD [address] [place] [address] PCP - General Family Medicine 05/31/24 documented as of this encounter
[2024-08-21] MEDS: ALBUT/IPRATROP 3MG/0.5MG NEB 3 ML VIAL NEB SCH (20:04)
[2024-08-21] MEDS: MELATONIN 3 MG TAB PO PRN (20:47)
[2024-08-21] MEDS: BENZONATATE 100 MG CAPSULE PO SCH (20:47)
[2024-08-21] MEDS: ACETAMINOPHEN 325 MG TAB PO PRN (20:47)
[2024-08-21] MEDS: ENOXAPARIN INJ 40 MG/0.4 ML SYR SQ SCH (20:47)
[2024-08-21] MEDS: MEMANTINE HCL 10 MG TAB PO SCH (20:47)
[2024-08-21] MEDS: NYSTATIN POWDER 15GM BTL EXT SCH (20:48)
[2024-08-21] MEDS: OSELTAMIVIR PHOSPHATE 6 MG/ML SUSP PO SCH (21:32)
[2024-08-22 06:52] LABS: Hematocrit (blood only) 32.8 % (42.0-52.0); Hemoglobin 10.3 g/dl (14.0-18.0); Mean Corpuscular Hemoglobin 27.4 pg (25.0-34.0); Mean Corpuscular Hgb Conc 31.4 g/dL (32.0-36.0); Mean Corpuscular Volume 87.2 fL (80.0-100.0); Mean Platelet Volume 9.1 fL (9.4-12.4); Platelet Count 243 K/uL (130-400); RDW Coefficient of Variation 16.8 % (11.5-14.5); RDW Standard Deviation 53.7 fL (36.4-46.3); Red Blood Count 3.76 M/uL (4.70-6.10); White Blood Count 4.79 K/ul (4.8-10.8)
--- NOTE | 2024-08-22 06:55 | Electrocardiogram Report ---
Test Reason : Blood Pressure : */* mmHG Vent. Rate : 75 BPM Atrial Rate : 75 BPM P-R Int : 148 ms QRS Dur : 94 ms QT Int : 438 ms P-R-T Axes : 28 47 27 degrees QTcB Int : 489 ms Poor data quality, interpretation may be adversely affected Normal sinus rhythm Normal ECG When compared with ECG of 28-Jul-2024 17:42, No significant change Confirmed by Willi Meza ([id number]) on 08/22/2024 6:55:23 AM Referred By: REFERRED SELF Confirmed By: Willi Meza
[2024-08-22 07:09] LABS: BUN Creatinine Ratio 13.6 (10-20); Calcium 8.2 mg/dl (8.6-10.3); Magnesium 1.9 mg/dl (1.7-2.4); Potassium 3.5 mmol/L (3.5-5.1)
[2024-08-22] MEDS: ASPIRIN 81 MG ECTAB PO SCH (08:30)
[2024-08-22] MEDS: MULTIVITAMIN TAB PO SCH (08:30)
[2024-08-22] MEDS: OXYBUTYNIN CHLORIDE XL 5 MG TABCR PO SCH (08:30)
[2024-08-22] MEDS: VIBEGRON 75 MG TAB PO SCH (08:30)
[2024-08-22] MEDS: FLUDROCORTISONE ACETATE 0.1 MG TAB PO SCH (08:30)
[2024-08-22] MEDS: FERROUS SULFATE 325 MG TAB PO SCH (08:31)
[2024-08-22] MEDS: HYDROCORTISONE 10 MG TAB PO SCH ×2 (08:31→15:37)
[2024-08-22] MEDS: CHOLECALCIFEROL 125 MCG (5,000 UNITS) TAB PO SCH (08:31)
[2024-08-22] MEDS: CYANOCOBALAMIN (B-12) 500 MCG TABLET PO SCH (08:31)
[2024-08-22] MEDS: PANTOprazole 40 MG TAB PO SCH (08:31)
[2024-08-22] MEDS: ASCORBIC ACID 500 MG TAB PO SCH (08:31)
[2024-08-22] MEDS: ESCITALOPRAM OXALATE 10 MG TAB PO SCH (08:32)
[2024-08-22] MEDS: UMECLIDINIUM/VILANTEROL 62.5/25MCG 7 PUFFS/INHALER INH SCH (08:33)
[2024-08-22] MEDS: FLUTICASONE FUROATE 200MCG 14 PUFFS/INHALER INH SCH (08:33)
[2024-08-22] MEDS: LIDOCAINE 5% 1 PATCH TD SCH (08:34)
[2024-08-22] MEDS ORDERED: NON-FORMULARY MEDICATION (Fluticasone-Umeclidin-Vilanter [Trelegy Ellipta] 200-62.5-25 mcg INH SCH (09:00)
[2024-08-22] MEDS ORDERED: FLUTICASONE FUROATE 100MCG 14 PUFFS/INHALER INH SCH (09:00)
--- NOTE | 2024-08-22 10:02 | Hospitalist Progress Note ---
Date of Service August 22, 2024 Assessment & Plan (1) Influenza A (H1N1): (2) Parainfluenza infection: Plan: Patient presented to hospital with URTI symptoms. Respiratory viral panel positive for flu and parainfluenza Chest x-ray does not show pneumonia Plan to continue Tamiflu for 5 days Droplet precaution Continue inhalers (3) Acute kidney injury superimposed on chronic kidney disease: Plan: Creatinine at baseline of 1.1-1.3; creatinine of 1.4 on admission. Likely due to poor oral intake Down trended to baseline with IV hydration. (4) Dementia: (5) Delirium: Plan: History of cognitive impairment. 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 She reports that she wants to bring the patient back home with home health. She is also currently experiencing URTI symptoms. PT OT to have evaluation, then possibly patient to be discharged home on home health . Case management on board. Time spent evaluating patient, direct bedside care, chart review, placing orders, interpretation of diagnostic studies, discussion with consultants, patient, and family members, as well as other required patient management activities is 50 minutes Please note the above document was generated using voice recognition software. It may contain grammatical, syntax or spelling errors. Any formal questions or concerns about the content, text or information contained within the body of this dictation should be directly addressed to the provider for clarification Admission and Anticipated Discharge Date Admission Date: August 21, 2024 Subjective Patient seen and examined at bedside. He appears to be anxious; he is oriented to self only. Vital signs are stable and he is saturating well on room air Review of Systems Review of Systems: All systems reviewed & are unremarkable except as noted in Subjective Physical Exam Physical Exam: Constitutional: Awake, alert oriented to self only. Chest: Bilateral vesicular breath sound Cardiovascular: RRR, no murmur, no edema Vessels: no JVD or carotid bruit Chest: normal inspection of chest Abdomen: normal bowel sounds, soft, nontender, no hepatosplenomegaly Musculoskeletal: Chronic venous stasis changes in bilateral lower extremities Skin: no rashes, warm and dry normal turgor Neurologic: PERRL, EOMI, accommodation nl, no face palsy, no dysarthria CN's II- XI intact bilaterally and moves all extremities Results & Data Results & Data Vital Signs (Past 12 Hours) Vital Signs Temp Pulse Resp BP Pulse Ox O2 Del Method FiO2 08/22/24 08:56 68 14 98 Room Air 21 08/22/24 07:29 36.5 C 62 16 145/71 H 96 Room Air (4) Dementia Dementia behavioral or psychological symptom: with anxiety Dementia severity: moderate Dementia type: unspecified type Qualified Code(s): F03.B4 - Unspecified dementia, moderate, with anxiety (7) Bladder cancer Bladder location: unspecified site Qualified Code(s): C67.9 - Malignant neoplasm of bladder, unspecified
[2024-08-22 15:33] LABS: Appearance Urine Turbid (Clear); Bacteria Urine Automated 4+ (None Seen); Bilirubin Urine Negative (Negative); Blood Urine 3+ (Negative); Color Urine Yellow; Epithelial Cell Urine Auto 0-2 /hpf (0-2); Glucose Urine UA Negative (Negative); Ketones Urine 1+ (Negative); Leukocyte Esterase Urine 3+ (Negative); Nitrite Urine Positive (Negative); Protein Urine 2+ (Negative); RBC Urine Automated >20 /hpf (0-2); Specific Gravity Urine 1.016 (1.000-1.030); Urobilinogen Urine Negative (Negative); WBC Urine Automated >50 /hpf (0-5)
[2024-08-22] MEDS: ALBUT/IPRATROP 3MG/0.5MG NEB 3 ML VIAL NEB SCH (21:03)
[2024-08-22] MEDS: OSELTAMIVIR PHOSPHATE 75 MG CAP PO SCH (21:38)
[2024-08-23 07:33] LABS: Basophils # (auto) 0.02 K/uL (0.00-0.20); Basophils % (auto) 0.5 %; Eosinophils # (auto) 0.07 K/uL (0.00-0.50); Eosinophils % (auto) 1.7 %; Hematocrit (blood only) 33.9 % (42.0-52.0); Hemoglobin 10.6 g/dl (14.0-18.0); Immature Granulocytes # (auto) 0.02 K/uL (0.01-0.20); Immature Granulocytes % (auto) 0.5 %; Lymphocytes # (auto) 1.51 K/uL (1.20-3.40); Lymphocytes % (auto) 35.8 %; Mean Corpuscular Hemoglobin 27.4 pg (25.0-34.0); Mean Corpuscular Hgb Conc 31.3 g/dL (32.0-36.0); Mean Corpuscular Volume 87.6 fL (80.0-100.0); Monocytes # (auto) 0.49 K/uL (0.11-0.59); Monocytes % (auto) 11.6 %; Neutrophils # (auto) 2.11 K/uL (1.40-6.50); Neutrophils % (auto) 49.9 %; Platelet Count 265 K/uL (130-400); RDW Standard Deviation 54.6 fL (36.4-46.3); Red Blood Count 3.87 M/uL (4.70-6.10); White Blood Count 4.22 K/ul (4.8-10.8)
[2024-08-23 07:42] VITALS: RESP 18
[2024-08-23 07:50] LABS: BUN Creatinine Ratio 10.9 (10-20); Calcium 8.3 mg/dl (8.6-10.3); Creatinine Clr Calc Pharmacy 59.5 ml/min; Potassium 3.2 mmol/L (3.5-5.1)
[2024-08-23] MEDS: POTASSIUM CHLORIDE CRTAB 20 MEQ TABCR PO STA (10:09)
[2024-08-23] MEDS: cefTRIAXone SODIUM 2,000 MG/50 ML BAG IV SCH (10:09)
--- NOTE | 2024-08-23 16:28 | Hospitalist Progress Note ---
Date of Service August 23, 2024 Assessment & Plan (1) Influenza A (H1N1): (2) Parainfluenza infection: Plan: Patient presented to hospital with URTI symptoms. Respiratory viral panel positive for flu and parainfluenza Chest x-ray does not show pneumonia Plan to continue Tamiflu for 5 days Droplet precaution Continue inhalers Acute complicated UTI: Urinalysis noted to be positive for UTI in a.m., Rocephin started. As the culture results were out, Rocephin changed to ampicillin sulbactam. Plan to discharge on Augmentin likely tomorrow. Add probiotic. Patient will need to follow-up on final sensitivity results on urine culture with PCP visit within a week time upon discharge, such has been communicated to patient's over the phone 08/23. (3) Acute kidney injury superimposed on chronic kidney disease: Plan: Creatinine at baseline of 1.1-1.3; creatinine of 1.4 on admission. Likely due to poor oral intake Down trended to baseline with IV hydration. (4) Dementia: (5) Delirium: Plan: History of cognitive impairment. 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 She wants me to send medications now to the pharmacy so that she can pick them up. She wants me to check his iron stores now and if needed wants me to give him IV iron therapy. Answered all her questions, she voiced understanding and was agreeable to plan of care. Admission and Anticipated Discharge Date Admission Date: August 21, 2024 Subjective Patient seen and examined at bedside. He appears to be Stable, oriented x 3. Per RN, he did not eat much breakfast, last bowel movement yesterday. Patient reports feeling better, denies any pain. Physical Exam Physical Exam: Constitutional: Awake, alert oriented x3 Chest: Bilateral vesicular breath sound Cardiovascular: RRR, no murmur, no edema Vessels: no JVD or carotid bruit Chest: normal inspection of chest Abdomen: normal bowel sounds, soft, nontender, no hepatosplenomegaly Musculoskeletal: Chronic venous stasis changes in bilateral lower extremities Skin: no rashes, warm and dry normal turgor Neurologic: PERRL, EOMI, accommodation nl, no face palsy, no dysarthria CN's II- XI intact bilaterally and moves all extremities Results & Data Results & Data Vital Signs (Past 12 Hours) Vital Signs Temp Pulse Resp BP Pulse Ox O2 Del Method 08/23/24 15:52 36.8 C 74 18 145/78 H 96 Room Air 08/23/24 07:42 36.8 C 81 18 125/70 96 Room Air 08/23/24 07:15 20 96 Room Air (4) Dementia Dementia type: unspecified type Dementia severity: moderate Dementia behavioral or psychological symptom: with anxiety Qualified Code(s): F03.B4 - Unspecified dementia, moderate, with anxiety (7) Bladder cancer Bladder location: unspecified site Qualified Code(s): C67.9 - Malignant neoplasm of bladder, unspecified
[2024-08-23] MEDS: AMPICILLIN/SULBACTAM SOD 3,000 MG/100 ML BAG IV SCH (17:26)
[2024-08-23] MEDS: ADVANCED PROBIOTIC 625 MG CAPSULE PO SCH (17:26)
[2024-08-24 06:07] LABS: Hematocrit (blood only) 32.9 % (42.0-52.0); Hemoglobin 10.1 g/dl (14.0-18.0); Mean Corpuscular Hemoglobin 26.7 pg (25.0-34.0); Mean Corpuscular Hgb Conc 30.7 g/dL (32.0-36.0); Mean Platelet Volume 8.7 fL (9.4-12.4); Platelet Count 226 K/uL (130-400); RDW Standard Deviation 54.1 fL (36.4-46.3); Red Blood Count 3.78 M/uL (4.70-6.10); White Blood Count 4.51 K/ul (4.8-10.8)
[2024-08-24 06:22] LABS: BUN Creatinine Ratio 7.8 (10-20); Calcium 8.1 mg/dl (8.6-10.3); Creatinine Clr Calc Pharmacy 61.6 ml/min; Potassium 3.6 mmol/L (3.5-5.1)
--- NOTE | 2024-08-24 08:44 | Discharge Summary ---
Date of Service August 24, 2024 Admission HPI Per Admitting Provider 78 yo male with pmhx adrenal insufficiency on chronic steroids, bronchial asthma/COPD, obstructive sleep apnea, history of DVT/PE s/p IVC filter no longer on anticoagulation due to bleeding issues, bladder cancer s/p surgery off of Keytruda secondary to development of myocarditis, prostate cancer s/p radiation therapy, ,moderate aortic stenosis, mild aortic regurgitation, hypertension, orthostatic hypotension, mild cognitive impairment and dementia, urinary incontinence, currently on chronic Devlin, chronic venous insufficiency, CKD stage III who presents for weakness/fatigue. Accompanied by daughter who provid es majority of history. For the past few days/week since discharge at his new SNF she states he has not been receiving his meds or being fed. She states that he also developed a cough, weakness, and fatigue over the past few days. Associated symptoms include shortness of breath, denies chest pain, nausea, vomiting. Daughter is next of kin, would like full code at this time. No tobacco, alcohol use. Lives at SNF currently but will be going home with [facility] (discussed with daughter) Admission Exam Per Admitting Provider Gen: A&O 1-2, NAD HEENT: NCAT, EOMI, not icteric. External ears normal. No rhinorrhea. Moist mucous membranes. Neck: Supple, full range of motion, no observable masses, No meningeal sign. Lungs: No Respiratory distress. CV: RRR, no edema. noted crescendo decrescendo murmur Abdomen: Soft, nondistended, No rebound tenderness. MSK: chronic venous stasis skin changes noted bilateral LE Skin: No rashes, petechiae, lesions. Normal color per patient. Neuro: Normal Gait, Grossly intact. Psych: dementia noted Principal Diagnosis Upper respiratory tract infection with influenza A and parainfluenza virus Acute complicated UTI Underlying dementia Discharge Exam Constitutional: Awake, alert oriented x3 Chest: Bilateral vesicular breath sound Cardiovascular: RRR, no murmur, no edema Vessels: no JVD or carotid bruit Chest: normal inspection of chest Abdomen: normal bowel sounds, soft, nontender, no hepatosplenomegaly Musculoskeletal: Chronic venous stasis changes in bilateral lower extremities Skin: no rashes, warm and dry normal turgor Neurologic: PERRL, EOMI, accommodation nl, no face palsy, no dysarthria CN's II- XI intact bilaterally and moves all extremities Discharge Data Allergies Allergy/AdvReac Type Severity Reaction Status Date / Time Iodinated Contrast Media Allergy Severe LOVERSOL---CARDIAC Verified 06/22/24 13:[address] CONTRAST clindamycin Allergy Intermediate Rash Verified 06/22/24 13:25 cranberry Allergy Verified 07/30/24 12:19 chocolate flavor AdvReac Severe DIARRHEA/ Verified 06/22/24 13:25 Cannot take, interacts w/ medications. pembrolizumab [From Keytruda] AdvReac Intermediate myocarditis Verified 06/22/24 13:25 Consultations 08/21/24 14:50 ED Decision to Admit Stat Hospital Course (1) Influenza A (H1N1): (2) Parainfluenza infection: Patient presented to hospital with URTI symptoms. Respiratory viral panel positive for flu and parainfluenza Chest x-ray does not show pneumonia Plan to continue Tamiflu for 5 days Droplet precaution Continue inhalers Pt stable respiratory wade, hemodynamically stable. Acute complicated UTI: Urinalysis noted to be positive for UTI in a.m., Rocephin started. As the culture results were out, Rocephin changed to ampicillin sulbactam. Discharge on Augmentin. c/w probiotic. Patient will need to follow- up on final sensitivity results on urine culture with PCP visit within a week time upon discharge, such has been communicated to patient's over the phone 08/23. (3) Acute kidney injury superimposed on chronic kidney disease: Creatinine at baseline of 1.1-1.3; creatinine of 1.4 on admission. Likely due to poor oral intake Down trended to baseline with IV hydration. (4) Dementia: (5) Delirium: History of cognitive impairment. 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 (8) Adrenal insufficiency: -continue hydrocortisone, Plan Full code DVT prophylaxis Fritz Patient is being discharged to home with home health with family support with following instruction at the point of discharge: Follow-up with your primary care physician within a week time and likely you will need labs CBC/CMP/magnesium/phosphorus. You will be discharged on Tamiflu to complete the course for influenza A upper respiratory tract infection. You will be discharged on antibiotic to complete the course for UTI. During your PCP visit within 3 to 5 days time upon discharge, you will need to follow- up on final sensitivity results on the urine culture results to make sure that you are being appropriately treated with antibiotic. Take your medications as prescribed. Please make sure that you are able to get your medications today by calling your pharmacy before you leave the hospital so that your treatment continuity is not broken. Home Health Attestation I certify that this patient is under my care and that I, or a physicians assistant professor of criminal justice working with me, had a face to-face encounter that meets the home health [id number] encounter requirements with this patient. The encounter with the patient was in whole, or in part, for the following medical condition, which is the primary reason for home health care (list medical condition): I certify that, based on my findings, the following services are medically necessary home health services: My clinical findings support the need for the above services because: Further, I certify that my clinical findings support that this patient is homebound (i.e. absences from home require considerable and taxing effort and are for medical reasons or orthodox services or infrequently or of short d uration when for other reasons) because: Certification for Home Health Services: Based on the above findings, I certify that this patient is confined to the home and needs intermittent fci care, physical therapy and/or speech therapy or continues to need occupational therapy. The patient is under my care, and I have initiated the establishment of the plan of care. This patient will be followed by a physician who will periodically review the plan of care. Total Time Total Time Spent Total Time Spent (In Minutes): 35 Discharge Plan Discharge Items Patient Disposition: Home - Home Health Services Reason For Visit: CONFUSION/WEAKNESS Discharge Diagnosis: Upper respiratory tract infection with influenza A and parainfluenza virus Acute complicated UTI Underlying dementia Activity: As commented below Activity Comment: Continue with home health Non-emergency contact: Primary Care Provider Call non-emergency contact if: you have any medication questions Follow-up/Referrals: Deondre Hill MD [Primary Care Provider] - 08/28/24 3:00 pm Diet: Regular Addtl Attending Provider Instructions: Follow-up with your primary care physician within a week time and likely you will need labs CBC/CMP/magnesium/phosphorus. You will be discharged on Tamiflu to complete the course for influenza A upper respiratory tract infection. You will be discharged on antibiotic to complete the course for UTI. During your PCP visit within 3 to 5 days time upon discharge, you will need to follow- up on final sensitivity results on the urine culture results to make sure that you are being appropriately treated with antibiotic. Take your medications as prescribed. Please make sure that you are able to get your medications today by calling your pharmacy before you leave the hospital so that your treatment continuity is not broken. Pending Studies at Discharge: Yes Stand-Alone Forms: My New [facility], Smoking Cessation Medications and DC Order Prescriptions: New oseltamivir [Tamiflu] 75 mg Capsule 75 mg PO BID 4 Days Qty: 8 0RF Advanced Probiotic 625 mg (10 billion cell) Capsule 1 cap PO DAILY 7 Days Qty: 7 0RF benzonatate 100 mg Capsule 100 mg PO TID 5 Days Qty: 15 0RF amoxicillin-pot clavulanate 875-125 mg tablet 1 tab PO BID 6 Days Qty: 12 0RF Continued hydrocortisone [Cortef] 10 mg tablet 10 mg PO 1500 Qty: 0 0RF Rx Instructions: for 1 week, then go back to 20mg in am. and 10mg at 1500 hydrocortisone [Cortef] 10 mg tablet 20 mg PO QAM Qty: 0 0RF methocarbamol 500 mg tablet 500 mg PO UD Rx Instructions: filled 08/21 for 30 day supply #90 sennosides [senna] 8.6 mg Tablet 8.6 mg PO DAILY PRN (Reason: Constipation) mirabegron [Myrbetriq] 25 mg tablet extended release 24 hr 25 mg PO DAILY Rx Instructions: RECENT FILL PT COULD NOT CONFIRM acetaminophen 325 mg Tablet 650 mg PO Q4H PRN (Reason: fever or pain) Qty: 30 0RF memantine 10 mg Tablet 10 mg PO BID Qty: 60 0RF lidocaine 5 % Adhesive Patch,Medicated 2 patch transdermal DAILY Qty: 20 0RF nystatin [Nystop] 100,000 unit/gram Powder 1 applic EXT BID Qty: 30 0RF ascorbic acid (vitamin C) 1,000 mg Tablet 1,000 mg PO DAILY Qty: 30 0RF cyanocobalamin (vitamin B-12) 1,000 mcg Tablet 1,000 mcg PO DAILY Qty: 30 0RF aspirin 81 mg Tablet,Delayed Release (Dr/Ec) 81 mg PO DAILY Qty: 30 0RF omeprazole 20 mg capsule,delayed release(DR/EC) 20 mg PO DAILY Qty: 30 0RF epinephrine 0.3 mg/0.3 mL Auto-Injector 0.3 mg IM UD PRN (Reason: Anaphylaxis) Qty: 3 0RF Rx Instructions: prn anaphylaxis ferrous sulfate 325 mg (65 mg iron) Tablet,Delayed Release (Dr/Ec) 325 mg PO DAILY Qty: 30 0RF solifenacin 5 mg tablet 5 mg PO DAILY Qty: 30 0RF Rx Instructions: last filled 02/27 30 day supply #30 magnesium chloride 64 mg Tablet,Delayed Release (Dr/Ec) 64 mg PO BID Qty: 60 0RF cholecalciferol (vitamin D3) [Vitamin D3] 125 mcg (5,000 unit) Tablet 125 mcg PO DAILY Qty: 30 0RF multivit with min-folic acid [Multivitamin Gummies] 200 mcg Tablet,Chewable 1 tab PO DAILY Qty: 30 0RF Trelegy Ellipta 200-62.5-25 mcg blister with device 1 inh INHALATION DAILY Qty: 1 0RF escitalopram oxalate 5 mg tablet 5 mg PO UD Rx Instructions: filled 08/21 30 day supply #30 azithromycin 1 tab PO DIRECTED Rx Instructions: per spouse, she doesn't think pt had any changes in his medications except adding a zpak as of yesterday 08/20. No fill history available albuterol sulfate 90 mcg/actuation HFA aerosol inhaler 2 puff INHALATION Q6H PRN (Reason: Shortness Of Breath Or Wheezing) fludrocortisone 0.1 mg tablet 0.1 mg PO UD Rx Instructions: 0.1mg po daily. filled 07/15 30 day supply #30 Discharge Orders: Discharge Order (Routine); Ordered 08/24/24 Ordered By: Issa Dickerson Admission Data Admit Date/Time: 08/21/24 15:35 Attending Provider: Issa Dickerson Admit Provider: Sai Sunshine Primary Care Provider: Deondre Hill Other Providers: Sai Sunshine; [facility]
[2024-08-24] MEDS: POLYETHYLENE (MIRALAX) 17 GM PACK PO PRN (09:04)
[2024-08-24 10:51] VITALS: BP 149/86; PULSE 82; TEMP 97.9; O2SAT 100
[2024-08-24] MEDS: LORazepam 0.5 MG TAB PO STA (11:45)
== END 2024-08-24 11:50 | disposition home health service (06) | DRG 194 ==
LOC: ED 12:19 → SUATTDRO 15:35 → 3E 15:35

== ENCOUNTER 2024-09-23 20:00 | Inpatient (IN) ==
--- NOTE | 2024-09-23 20:07 | Emergency Department Note ---
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 Patient reports his shortness of breath has improved but still mildly present. He denies chest pain. He denies nausea, vomiting or diarrhea. He denies abdominal pain. On evaluation the patient is in no acute distress, afebrile with blood pressure 160s/90s and vital signs otherwise stable. He appears clinically dry. Devlin catheter does demonstrate cloudy urine and so this was replaced and urinalysis sent. EKG without overt acute ischemia. CXR with peribronchial thickening and linear left lower airspace opacity, likely atelectasis, per my personal preliminary review/interpretation. WBC within normal limits. H/H similar to improved from prior. Platelets within normal limits. Chemistry without metabolic acidosis. Electrolytes and LFTs are unremarkable. High-sensitivity troponin 4.7, within normal limits. Lipase is normal. UA is consistent infection with positive nitrites, WBCs and 4+ bacteria. Review of the patient's prior urine culture does demonstrate history of Klebsiella pneumonia and Enterococcus faecalis which was resistant to fluoroquinolones. Empiric treatment initiated with IV ceftriaxone and daptomycin at this time. Given the patient's adrenal insufficiency and complicated urinary tract infection he was referred to hospitalist service for admission. Case was discussed with Dr. Chung, [facility] hospitalist who will evaluate the patient for admission. Further management per admitting team. Triage Nursing notes reviewed and agree them. Prior/external medical records reviewed Vital Signs: reviewed Differential diagnosis: Infection, dehydration, metabolic abnormality, hypo/hyperglycemia, electrolyte disturbance, anemia, hypoxia, cardiac sources, intracerebral event, toxicologic, neurologic, as well as other pathologies. ER treatment provided: See below. Diagnostics interpreted by me: ECG: Normal sinus rhythm, 85 bpm, no ectopy, no overt ST ovation or depression, QTc 430, QRS 80. Cardiac Monitoring: An order for continuous cardiac monitoring was placed and demonstrated normal sinus rhythm, 85 bpm, no ectopy. Laboratory studies: See below Imaging studies: See below Consultation(s): [facility]. 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 Patient reports his shortness of breath has improved but still mildly present. He denies chest pain. He denies nausea, vomiting or diarrhea. He denies abdominal pain. ROS: See above HPI for pertinent positives & negatives. A total of 10 systems reviewed and were otherwise negative. VITALS:See Below PHYSICAL EXAMINATION: GENERAL: Awake, alert, chronically ill-appearing, in no distress HENT: Normocephalic, atraumatic. Oropharynx with dry mucous membranes and otherwise unremarkable. EYES: Normal conjunctiva. Sclera non-icteric. NECK: Supple. No nuchal rigidity. FROM. No JVD. RESPIRATORY: Clear to auscultation. CARDIAC: Regular rate, normal rhythm. Extremities warm and well perfused. Pulses equal. ABDOMEN: Soft, non-distended. No tenderness to palpation. No rebound or guarding. No masses. : Devlin catheter present. MUSCULOSKELETAL: Chest examination reveals no tenderness. The back is symmetrical on inspection without obvious abnormality. There is no CVA tenderness to palpation. No joint edema. LOWER EXTREMITIES: Calves are equal size bilaterally and non-tender. No edema. No discoloration. NEURO: Normal sensorium. No sensory or motor deficits noted. SKIN: No rash or jaundice noted. Ortega Diggs MD Past Med/Surg History Problem List (Updated 09/24/24 @ 04:38 by Ortega Diggs MD) Aspiration pneumonia Chronic indwelling Devlin catheter (Acute) Complicated urinary tract infection (Acute) Dementia (Acute) Acute kidney injury superimposed on chronic kidney disease (Acute) Parainfluenza infection (Acute) Influenza A (H1N1) (Acute) Acute hypokalemia (Acute) Delirium Chronic indwelling Devlin catheter (Acute) Mild cognitive impairment Hx of prostatic malignancy ~ 2013- s/p Lupron and XRT Obstructive sleep apnea (Acute) Adrenal insufficiency (Acute 06/04/14) Bladder cancer (Acute) Stage 3 chronic kidney disease (Acute) History of pulmonary embolism hx "many years ago" unknown etiology Aortic stenosis Mild per 12/2022 ECHO -follows annually with cardiology Medical History Weakness Recurrent UTI Anxiety Elevated blood pressure reading Complicated UTI (urinary tract infection) Myocarditis Primary bladder malignant neoplasm Orthostatic hypotension Coagulopathy History of DVT (deep vein thrombosis) hx "many years ago" unknown etiology acute on chronic DVT during 12/2022 [facility] admission- Coumadin d/c'ed due to anemia and hematuria; IVC filter placed 12/28/22 COPD (chronic obstructive pulmonary disease) well controlled. uses Breo daily with exercise Fracture of multiple teeth Sacral pressure sore Ambulatory dysfunction Anemia Urethral stricture Ascending aorta dilation Mild- 4.4cm per 11/2022 ECHO Obesity Venous insufficiency (chronic) (peripheral) Radiation cystitis Kidney stones x1 episode. no surgery needed. Cardiac arrest hx r/t IV Contrast Dye "many years ago" Allergic rhinitis Contrast media allergy Hiatal hernia Surgical History S/P IVC filter S/P cataract extraction History of right cataract extraction History of colonoscopy H/O sinus surgery History of appendectomy S/P TURP (status post transurethral resection of prostate) Status post cystoscopy (11/07/13) Family History Father Prostate cancer Brother Prostate cancer Mother Thyroid cancer Cancer Other No family history of adverse response to anesthesia Social History Smoking Status: Never smoker Tobacco Type: Cigarettes Second Hand Exposure: Yes; Do You Dip or Chew Tobacco: No; Hx Alcohol Use: No Hx Substance Use: No Preferred Language: [place] Islander Communication Ability: Effective Visual Impairment: Limited Hearing Ability: Normal Licensed Optical Dispenser Required: No Beliefs That Will Affect Care: None marital status: Current Living Situation: Spouse Current Living Situation Comment: [facility] current occupational status: retired How many Children do You have: 0 Other Information That Helps Us Care for You: No Feels Safe at Home: Yes Safety Concerns: Feels Safe At This Time Diet: regular during the past year weight has: decreased > 10 lbs Seatbelt Use: always Do you think of yourself as: straight/heterosexual Gender Identity: Male Assistive Devices: Walker Allergies Allergies Allergy/AdvReac Type Severity Reaction Status Date / Time Iodinated Contrast Media Allergy Severe LOVERSOL---CARDIAC Verified 06/22/24 13:[address] CONTRAST clindamycin Allergy Intermediate Rash Verified 06/22/24 13:25 cranberry Allergy Verified 07/30/24 12:19 chocolate flavor AdvReac Severe DIARRHEA/ Verified 06/22/24 13:25 Cannot take, interacts w/ medications. pembrolizumab [From [employer]] AdvReac Intermediate myocarditis Verified 06/22/24 13:25 Home Meds Home Medications Medication Instructions Recorded Confirmed methocarbamol 500 mg tablet 500 mg PO UD 07/28/24 09/24/24 mirabegron 25 mg tablet,extended 25 mg PO DAILY 07/28/24 09/24/24 release 24 hr (Myrbetriq) sennosides 8.6 mg tablet (senna) 8.6 mg PO DAILY PRN Constipation 07/28/24 09/24/24 albuterol sulfate 90 mcg/actuation 2 puff inhalation Q6H PRN 08/21/24 09/24/24 aerosol inhaler Shortness Of Breath Or Wheezing escitalopram oxalate 5 mg tablet 5 mg PO UD 08/21/24 09/24/24 fludrocortisone 0.1 mg tablet 0.1 mg PO UD 08/21/24 09/24/24 Previous Rx's Medication Instructions Recorded acetaminophen 325 mg tablet 650 mg (2 x 325 mg) PO Q4H PRN 06/08/24 fever or pain #30 tabs ascorbic acid (vitamin C) 1,000 mg 1,000 mg PO DAILY #30 tabs 06/08/24 tablet aspirin 81 mg tablet,delayed 81 mg PO DAILY #30 tabs 06/08/24 release cholecalciferol (vitamin D3) 125 125 mcg PO DAILY #30 tabs 06/08/24 mcg (5,000 unit) tablet (Vitamin D3) cyanocobalamin (vitamin B-12) 1,000 mcg PO DAILY #30 tabs 06/08/24 1,000 mcg tablet epinephrine 0.3 mg/0.3 mL 0.3 mg (0.3 mL) IM UD PRN 06/08/24 injection, auto-injector Anaphylaxis #3 ea ferrous sulfate 325 mg (65 mg 325 mg PO DAILY #30 tabs 06/08/24 iron) tablet,delayed release fluticasone fur. 200 mcg-umeclid 1 inh inhalation DAILY #1 ea 06/08/24 62.5 mcg-vilant 25 mcg inhalat.powder (Trelegy Ellipta) lidocaine 5 % topical patch 2 patch transdermal DAILY #20 ea 06/08/24 magnesium chloride 64 mg 64 mg PO BID #60 tabs 06/08/24 (magnesium chloride) tablet,delayed release memantine 10 mg tablet 10 mg PO BID #60 tabs 06/08/24 multivitamin with minerals-folic 1 tab PO DAILY #30 tabs 06/08/24 acid 200 mcg chewable tablet (Multivitamin Gummies) nystatin 100,000 unit/gram topical 1 applic EXT BID #30 grams 06/08/24 powder (Nystop) omeprazole 20 mg capsule,delayed 20 mg PO DAILY #30 caps 06/08/24 release solifenacin 5 mg tablet 5 mg PO DAILY #30 tabs 06/08/24 hydrocortisone 10 mg tablet 10 mg PO 1500 #0 tabs 07/07/24 (Cortef) hydrocortisone 10 mg tablet 20 mg (2 x 10 mg) PO QAM #0 tabs 07/07/24 (Cortef) hydroxyzine HCl 10 mg tablet 10 mg PO Q8H PRN anxiety #30 tabs 08/24/24 Results & Data (ED) Vital Signs Vital Signs - 24 hr 09/23/24 19:56 09/23/24 19:56 09/23/24 19:56 Temperature 37.0 C Temperature Source Oral Pulse Rate 90 Pulse Rate [Right Brachial] 90 Pulse Rhythm Regular Pulse Rhythm [Right Brachial] Regular Pulse Strength Normal Pulse Strength [Right Brachial] Normal Respiratory Rate 22 22 Respiratory Effort / Characteristics Non-Labored Non-Labored Respiratory Depth Normal Normal Respiratory Pattern Regular Regular Blood Pressure 161/93 H Blood Pressure [Right Arm] 161/93 H Blood Pressure Mean 115 Blood Pressure Mean [Right Arm] 115 Blood Pressure Position Lying Blood Pressure Position [Right Arm] Lying Pulse Oximetry 100 100 100 Oxygen Delivery Method Room Air Room Air Room Air Sepsis Recent Fever Within 48 Hours No Sepsis New/Unexplained Change in Mental Status N/A Sepsis Action Taken by Nursing No Action Required 09/23/24 20:24 09/23/24 20:27 09/23/24 21:56 Temperature Temperature Source Pulse Rate 85 Pulse Rate [Right Brachial] 90 Pulse Rhythm Pulse Rhythm [Right Brachial] Regular Pulse Strength Pulse Strength [Right Brachial] Normal Respiratory Rate 16 Respiratory Effort / Characteristics Non-Labored Respiratory Depth Normal Respiratory Pattern Regular Blood Pressure Blood Pressure [Right Arm] 156/91 H Blood Pressure Mean Blood Pressure Mean [Right Arm] 112 Blood Pressure Position Blood Pressure Position [Right Arm] Lying Pulse Oximetry 100 100 Oxygen Delivery Method Room Air Room Air Sepsis Recent Fever Within 48 Hours Sepsis New/Unexplained Change in Mental Status Sepsis Action Taken by Nursing 09/24/24 00:23 Temperature Temperature Source Pulse Rate 93 H Pulse Rate [Right Brachial] Pulse Rhythm Pulse Rhythm [Right Brachial] Pulse Strength Pulse Strength [Right Brachial] Respiratory Rate Respiratory Effort / Characteristics Respiratory Depth Respiratory Pattern Blood Pressure Blood Pressure [Right Arm] Blood Pressure Mean Blood Pressure Mean [Right Arm] Blood Pressure Position Blood Pressure Position [Right Arm] Pulse Oximetry Oxygen Delivery Method Sepsis Recent Fever Within 48 Hours Sepsis New/Unexplained Change in Mental Status Sepsis Action Taken by Nursing Laboratory Data Attestation: I reviewed the patient's lab results. 09/23/24 20:12 09/23/24 20:12 Lab Results 09/23/24 09/23/24 Range/Units 20:12 22:10 WBC 8.99 (4.8-10.8) K/ul RBC 4.27 L (4.70-6.10) M/uL Hgb 12.0 L (14.0-18.0) g/dl Hct 37.0 L (42.0-52.0) % MCV 86.7 (80.0-100.0) fL MCH 28.1 (25.0-34.0) pg MCHC 32.4 (32.0-36.0) g/dL RDW Std Deviation 54.5 H (36.4-46.3) fL RDW Coeff of Robert 17.2 H (11.5-14.5) % Plt Count 324 (130-400) K/uL MPV 9.2 L (9.4-12.4) fL Immature Gran % (Auto) 0.6 % Neut % (Auto) 68.3 % Lymph % (Auto) 22.7 % [place] % (Auto) 7.3 % Eos % (Auto) 0.8 % Baso % (Auto) 0.3 % Neut # (Auto) 6.14 (1.40-6.50) K/uL Lymph # (Auto) 2.04 (1.20-3.40) K/uL [place] # (Auto) 0.66 H (0.11-0.59) K/uL Eos # (Auto) 0.07 (0.00-0.50) K/uL Baso # (Auto) 0.03 (0.00-0.20) K/uL Immature Gran # (Auto) 0.05 (0.01-0.20) K/uL PT 10.9 (9.0-12.0) Seconds INR 1.0 (0.9-1.1) Sodium 139 (136-145) mmol/L Potassium 3.8 (3.5-5.1) mmol/L Chloride 105 (98-107) mmol/L Carbon Dioxide 24 (21-32) mmol/L Anion Gap 10 (3-11) BUN 22 (6-23) mg/dl Creatinine 1.17 (0.6-1.4) mg/dl Est Cr Clr Drug Dosing 68.0 ml/min eGFR 63.81 BUN/Creatinine Ratio 18.8 (10-20) Glucose 99 (70-99(Fasting)) mg/dl Calcium 9.1 (8.6-10.3) mg/dl Magnesium 1.9 (1.7-2.4) mg/dl Total Bilirubin 0.3 (0.2-1.0) mg/dl AST 11 L (13-39) U/L ALT 9 (7-52) U/L Alkaline Phosphatase 101 (34-104) U/L Troponin I High Sens 4.7 (0-20) pg/ml Total Protein 7.0 (6.0-8.3) gm/dl Albumin 3.6 (3.4-5.0) gm/dl Globulin 3.4 (2.5-4.0) gm/dl Albumin/Globulin Ratio 1.1 (0.9-2) Lipase 18 (11-82) U/L Urine Color Yellow Urine Appearance Cloudy A (Clear) Urine pH 8.0 H (4.5-7.5) Ur Specific [place] 1.018 (1.000-1.030) Urine Protein 2+ H (Negative) Urine Glucose (UA) Negative (Negative) Urine Ketones Trace H (Negative) Urine Blood 3+ H (Negative) Urine Nitrite Positive A (Negative) Urine Bilirubin Negative (Negative) Urine Urobilinogen Negative (Negative) Ur Leukocyte Esterase 3+ H (Negative) Urine WBC (Auto) >50 H (0-5) /hpf Urine RBC (Auto) >20 H (0-2) /hpf U Hyaline Cast (Auto) 11-20 H (0-2) /lpf U Epithel Cells (Auto) 0-2 (0-2) /hpf Urine Bacteria (Auto) 4+ H (None Seen) WBC Casts Present A (None Prsent) /lpf Adenovirus (PCR) Not Detected (NotDetected) B. pertussis DNA (PCR) Not Detected (NotDetected) B.parapertussis DNA PCR Not Detected (NotDetected) C. pneumoniae DNA (PCR) Not Detected (NotDetected) Coronavirus OC43 (PCR) Not Detected (NotDetected) Coronavirus HKU1 (PCR) Not Detected (NotDetected) Coronavirus 229E (PCR) Not Detected (NotDetected) SARS-CoV-2 (PCR) Not Detected (NotDetected) Coronavirus NL63 (PCR) Not Detected (NotDetected) Human Metapneumovir PCR Not Detected (NotDetected) Influenza Type A (PCR) Not Detected (NotDetected) Influenza Type B (PCR) Not Detected (NotDetected) M. pneumoniae (PCR) Not Detected (NotDetected) Parainfluenza 1 (PCR) Not Detected (NotDetected) Parainfluenza 2 (PCR) Not Detected (NotDetected) Parainfluenza 3 (PCR) Not Detected (NotDetected) Parainfluenza 4 (PCR) Not Detected (NotDetected) RSV (PCR) Not Detected (NotDetected) Entero/Rhino (PCR) Not Detected (NotDetected) Administered Medications Sodium Chloride (Nss) 500 mls @ 60 mls/hr IV .Q8H20M ONE Stop: 09/24/24 08:19 Last Admin: 09/24/24 00:43 Dose: 100 mls/hr Documented By: JAVAD Discontinued Medications Daptomycin 500 mg/ Syringe 10 mls @ 5 mls/min IV Q24H TAWNY; Protocol Stop: 09/25/24 23:44 Last Admin: 09/24/24 00:40 Dose: Not Given Documented By: JAVAD Cefepime HCl (Maxipime 2000mg) 2,000 mg in 20 mls @ 5 mls/min IV ONE STA; Protocol Stop: 09/24/24 00:42 Last Admin: 09/24/24 00:42 Dose: 5 mls/min Documented By: JAVAD Piperacillin Sod/Tazobactam Sod (Zosyn) 4.5 gm in 100 mls @ 200 mls/hr IV ONE STA; Protocol Stop: 09/24/24 01:58 Last Infusion: 09/24/24 02:59 Dose: Infused Documented By: Admin: 09/24/24 02:13 Dose: 200 mls/hr Documented By: ZOHREH Imaging Data Radiologist's Impression: Chest X-Ray 09/23/24 20:27 CR Exam(s): XR CXR 1 VIEW EXAM: XR Chest, 1 View CLINICAL HISTORY: Reason for exam: sob. TECHNIQUE: Frontal view of the chest. COMPARISON: Prior chest x-ray from August 21, 2024. FINDINGS: Lungs: Mild peribronchial thickening of the central lower lobe bronchi with patchy opacity at the left lung base. Pleural space: Unremarkable. No pneumothorax. Heart: Unremarkable. No cardiomegaly. Mediastinum: Unremarkable. Normal mediastinal contour. Bones/joints: Unremarkable. No acute fracture. IMPRESSION: Bronchitis with left lower lobe infiltrate. No evidence of pleural effusion. Communications: Verify Receipt Electronically signed by: Cierra Wilson MD 09/23/24 23:31 PM Discharge Plan Visit Data Chief Complaint: Urinary Symptoms Stated Complaint: Cloudy Urine, Blood in Urine ED Provider: Ortega Diggs Discharge Problem: Complicated urinary tract infection, Chronic indwelling Devlin catheter, Dementia, Adrenal insufficiency Patient Disposition: Admitted As Inpatient Discharge Instructions Interventions: ED Discharge Assessment Last Done: 09/24/24 01:02 Discharge Problem: Dementia Qualifiers: Dementia type: unspecified type Dementia severity: unspecified severity D ementia behavioral or psychological symptom: unspecified whether behavioral, psychotic, or mood disturbance or anxiety Qualified Code(s): F03.90 - Unspecified dementia, unspecified severity, without behavioral disturbance, psychotic disturbance, mood disturbance, and anxiety
--- OUTSIDE RECORDS SUMMARY | 2024-09-23 20:08 | External Medical Summary | Summary of Care ---
Author Name Unknown Organization [facility] Address [address] [place] [place] [address] Phone [phone] Care Team Providers Care Field Operations Technician Name Role Phone Chuy Batista MD Primary Care Provider [phone] Encounter Details Date Type Department Care Team (Late st Contact Info) Description 09/11/2024 Orders Only PATIENT PORTAL DO NOT DELETE THIS DEPT USED BY [place] [id number] Allergies Active Allergy Reactions Criticality Noted Date Comments Chocolate Diarrhea 05/14/2023 Chocolate Flavoring Agent (Non-Screening) High 10/09/2023 Other Reaction(s): DIARRHEA/ Cannot take, interacts w/ medications. Clindamycin Hcl 09/24/2005 rash Cranberry 10/20/2023 Iodinated Contrast Media 10/01/2015 Ioversol Other (Please comment) High 08/10/[address] IV DYE Pembrolizumab High 10/10/2023 Other Reaction(s): myocarditis documented as of this encounter (statuses as of 09/11/2024) Medications Syringe/Needle, Disp, 25G X 1-1/2" 3 [...] evening. 60 Blister Dosing Unit 11 10/27/19 Active EpiPen 2-Pedro 0.3 MG/0.3ML Injection Solution [...] Take 119 g by mouth once. Active [facility] Wound/Burn Dressing External GelIndications:Pr essure injury [...] MORNING 90 Capsule 3 07/25/20 24 Active Vitamin D 125 MCG (5000 UT) Oral Capsule Take 1 capsule daily 30 Capsule 11 07/26/20 24 Active Mirabegron ER 25 MG Oral Tablet Extended Release 24 Hour (Myrbetriq) Take 1 Tablet by mouth in the morning. 30 Tablet 11 07/27/20 24 Active Oseltamivir Phosphate 75 MG Oral Capsule (Tamiflu) Take 1 Capsule by mouth in the morning and 1 Capsule before bedtime. 08/23/19 25 Active Benzonatate 100 MG Oral Capsule (Tessalon Perles) Take 1 Capsule by mouth in the morning and 1 Capsule at noon and 1 Capsule before bedtime. 08/23/19 25 Active Amoxicillin-Pot Clavulanate 875-125 MG Oral Tablet (Augmentin) Take 1 Tablet by mouth in the morning and 1 Tablet before bedtime. 08/23/19 25 Active Methocarbamol 500 MG Oral Tablet (Robamol) Take 1 tab by mouth three times per day as needed for back pain 90 Tablet 1 09/08/19 25 Active documented as of this encounter (statuses as of 09/11/2024) Active Problems Problem Noted Date Diagnosed Date [...] as of this encounter (statuses as of 09/11/2024) Resolved Problems Problem Noted Date Diagnosed Date [...] as of this encounter (statuses as of 09/11/2024) Immunizations Name Administration Dates Next Due COVID-19 mRNA, LNP-s, No Pre serve, 2-Dose Series ([employer]) 05/30/2021,10/29/2020,10/08/2020 COVID-19, LNP-s, No Preserve , Prosper-sucrose, [...] Care Team (Late st Contact Info) Description 09/14/2024 1:00 PM EST Cardiac Studies Cardiac Studies, [facility] [address] [facility] [place] [id number] 09/27/2024 11:00 AM EST Office Visit Hematology/Oncology [facility] [address] [place] [id number] Xavi Gramajo MD [address] [place] [address] 10/13/2024 11:20 AM EST Office Visit Neurology [facility] [address] [place] [address] Ellie Duncan MD [address] [place] [address] Health Maintenance Due Date Last Done Comments Albumin/Creatinine Ratio 1963 DTap/Tdap Vaccines (1 - Tdap) 1964 Adult Wellness Visit 02/01/2020 01/31/2019 CKD PHOS USE SMARTSET [id number] 09/11/202408/17, 09/11/2023, 07/14/2021, Additional history exists COVID-19 Vaccine ( season) 2024 08/11/2024, 07/22/2022, 07/22/2022, Additional history exists Depression Screening 12/26/2024 12/27/2023 GFR 01/22/2025 07/24/2024, 03/17, 11/12/2023, Additional history exists CKD HGB USE SMARTSET [id number] 07/24/202507/24, 07/24/2024, 04/12/2024, Additional history exists Pneumococcal [...] Power of Attor philipp? No Care Teams Field Operations Technician Relationship Specialty Start Date End Date Chuy Batista MD PCP - General Family Medicine 05/31/24 documented as of this encounter
--- OUTSIDE RECORDS SUMMARY | 2024-09-23 20:08 | External Medical Summary | Summary of Care ---
Author Name Unknown Organization [facility] Address [address] [place] [address] Phone [phone] Care Team Providers Care Household Appliance Assembler Name Role Phone Chuy Batista MD Primary Care Provider +1- [phone] Reason for Visit * Reason Onset Date Comments Advice 09/07/2024 Appointment 09/07/2024 Encounter Details Date Type Department Care Team (Late st Contact Info) Description [facility] [address] [place] [address] Chuy Batista MD [address] [facility] [place] [address] Advice; Appointment Allergies Active Allergy Reactions Criticality Noted Date Comments Chocolate Diarrhea 05/14/2023 Chocolate Flavoring Agent (Non-Screening) High 10/09/2023 Other Reaction(s): DIARRHEA/ Cannot take, interacts w/ medications. Clindamycin Hcl 09/24/2005 rash Cranberry 10/20/2023 Iodinated Contrast Media 10/01/2015 Ioversol Other (Please comment) High 08/10/[address] IV DYE Pembrolizumab High 10/10/2023 Other Reaction(s): myocarditis documented as of this encounter (statuses as of 09/14/2024) Medications Syringe/Needle, Disp, 25G X 1-1/2" 3 [...] back pain 90 Tablet 1 07/26/20 24 025 Discontin ued(Refil l) documented as of this encounter (statuses as of 09/14/2024) Active Problems Problem Noted Date Diagnosed Date [...] as of this encounter (statuses as of 09/14/2024) Resolved Problems Problem Noted Date Diagnosed Date [...] as of this encounter (statuses as of 09/14/2024) Immunizations Name Administration Dates Next Due COVID-19 mRNA, LNP-s, No Pre serve, 2-Dose Series ([employer]) 05/30/2021,10/29/2020,10/08/2020 COVID-19, LNP-s, No Preserve , Prosper-sucrose, [...] Telephone Encounter - Ania Neal OSA - 09/14/2024 5:07 PM EST Patient is to follow up with you in 1 week. There aren't any appts available with you in 1 week. Please provide date and time that you would like to see patient. Thank you. * Telephone Encounter - Kayla Hinds OSA - 09/14/2024 3:57 PM EST Received call from nurse at [facility] office regarding pt, as he was unable to access video visit for today via text link. Offered to contact pt to assist in scheduling a new appt. Made outbound call to pt. Pt made me aware he had spoken to Dr. Batista on the phone and would like pt to be scheduled for a 1 week follow up. Pt would like to be seen via video as he is unable to come into the office at this time. No video visits available with Dr. Batista for 1 week follow up. Please advise pt with an appt. Thank you. * Telephone Encounter - Earline Hernandez OSA - 09/14/2024 3:11 PM EST Pt calling due to having received link via text message for video visit, however pt is unable to check in for appt via that link, stating that the link isn't working right, but that it did work for another video visit recently. Pt doesn't have an email listed, and states that they don't have a working email right now. She was advised that video visits must have a working email to be able to be scheduled. She states that it worked fine a few weeks ago. Nurse was unable to assist. She declined to schedule next appt 2.3.25, requesting instead that PCP office call her to schedule. Please add correct PCP to pt's headerbar if appropriate. * Telephone Encounter - Ania Neal OSA - 09/12/2024 8:52 AM EST Done. 09/12/2024 * Telephone Encounter - Leesa Salazar LPN - 09/12/2024 8:15 AM EST Make telemed ivan * Telephone Encounter - Ania Neal OSA - 09/11/2024 2:17 PM EST Spoke to Verna, Patient's , and she states she would like this to be TeleMed and this would be to evaluate for his weakness/falls. She cannot get patient into the car at this point for an in person visit. 09/11/2024 * Telephone Encounter - Joanna Ulloa LPN - 09/11/2024 1:31 PM EST Attempted to reach patient- left message on machine for return call. When patient calls back pleaseget more information: Trying to decide the best way to help - Are they looking for a visit in the office? Are they able to get in? Or telemed? Purpose of visit to evaluate weakness/falls? * Telephone Encounter - Chuy Batista MD - 09/08/2024 5:55 PM EST Trying to decide the best way to help - Are they looking for a visit in the office? Are they able to get in? Or telemed? Purpose of visit to evaluate weakness/falls? * Telephone Encounter - Ania Neal OSA - 09/08/2024 2:20 PM EST Patient's is requesting Branden see you and you only. Is it ok if patient sees another provider or if you want to see patient please provide date and time to schedule patient. Thank you. * Telephone Encounter - Diana Ariza OSA - 09/07/2024 4:34 PM EST No Appointments Available What Visit Type is needed? Acute. Pt has a fall last night and home health could not help get pt up. had to call ambulance to assist. is very concerned and frustrated bc she can not take him to hospital he is non-mobile. Were surrounding clinics offered? Yes Call Details are required. Please review Patient declined available appointment(s)?: Yes, explain: pt's wants spouse to see Dr. Batista only. Were other providers in the clinic offered? Yes documented in this encounter Plan of Treatment Upcoming Encounters Date Type Department Care Team (Late st Contact Info) Description 09/27/2024 11:00 AM EST Office Visit Hematology/Oncology [facility] [address] [facility], [place] [phone] Xavi Gramajo MD [address] [facility] [address] 10/13/2024 11:20 AM EST Office Visit Neurology [facility] [address] [facility] [address] Ellie Duncan MD [address] [facility] [address] 10/27/2024 12:00 PM EDT [facility] [place] [phone] 05/22/2025 10:45 AM EDT Office Visit Urology, [facility] [address] [facility] [place] [address] Valdemar Prado MD [address] [facility] [place] [address] Health Maintenance Due Date Last Done Comments Albumin/Creatinine Ratio 1963 DTap/Tdap Vaccines (1 - Tdap) 1964 Adult Wellness Visit 02/01/2020 01/31/2019 CKD PHOS USE SMARTSET 13446 09/11/202408/17, 09/11/2023, 07/14/2021, Additional history exists COVID-19 Vaccine ( season) 2024 08/11/2024, 07/22/2022, 07/22/2022, Additional history exists Depression Screening 12/26/2024 12/27/2023 GFR 01/22/2025 07/24/2024, 03/17, 11/12/2023, Additional history exists CKD HGB USE SMARTSET 99665 07/24/202507/24, 07/24/2024, 04/12/2024, Additional history exists Pneumococcal [...] Power of Attor philipp? No Care Teams Household Appliance Assembler Relationship Specialty Start Date End Date Chuy Batista MD [address] [place] [address] PCP - General Family Medicine 09/14/24 documented as of this encounter
--- OUTSIDE RECORDS SUMMARY | 2024-09-23 20:08 | External Medical Summary | Summary of Care ---
Author Name Unknown Organization [facility] Address [address] [place] [address] Phone [phone] Care Team Providers Care Assigner Name Role Phone Chuy Batista MD Primary Care Provider +1- [phone] Reason for Visit * Reason Onset Date Comments Appointment 06/20/2024 Encounter Details Date Type Department Care Team (Late st Contact Info) Description 06/20/2024 Telephone Urology, [facility] [address] Services, Scheduling [address] [place] [address] Appointment Allergies Active Allergy Reactions Criticality Noted Date Comments Chocolate Diarrhea 05/14/2023 Chocolate Flavoring Agent (Non-Screening) High 10/09/2023 Other Reaction(s): DIARRHEA/ Cannot take, interacts w/ medications. Clindamycin Hcl 09/24/2005 rash Cranberry 10/20/2023 Iodinated Contrast Media 10/01/2015 Ioversol Other (Please comment) High 08/10/[address] IV DYE Pembrolizumab High 10/10/2023 Other Reaction(s): myocarditis documented as of this encounter (statuses as of 09/20/2024) Medications Syringe/Needle , Disp, 25G X 1-1/2" [...] Take 119 g by mouth once. Active [facility] Wound/Burn Dressing External GelIndications :Pressure injury of [...] am, noon, 4 pm 270 Tablet 3 08/02/2 024 2023 Discontinued documented as of this encounter (statuses as of 09/20/2024) Active Problems Problem Noted Date Diagnosed Date [...] as of this encounter (statuses as of 09/20/2024) Resolved Problems Problem Noted Date Diagnosed Date [...] as of this encounter (statuses as of 09/20/2024) Immunizations Name Administration Dates Next Due COVID-19 mRNA, LNP-s, No Pre serve, 2-Dose Series ([employer]) 05/30/2021,10/29/2020,10/08/2020 COVID-19, LNP-s, No Preserve , Prosper-sucrose, [...] Telephone Encounter - Vitaliy Almendarez OSA - 06/20/2024 3:16 PM EST Appt was scheduled for 06/27. Patient's asked me to contacted [facility]. I contacted them and left message with transportation. * Telephone Encounter - Shara Sanders OSA - 06/20/2024 3:02 PM EST Reason for patient's call: return call Caller was transferred to [facility] at the nurse line. * Telephone Encounter - Vitaliy Almendarez OSA - 06/20/2024 11:37 AM EST Left message on patient's cell phone. * Telephone Encounter - Rosina Michaud, ANDRZEJ - 06/20/2024 11:23 AM EST Pt's requesting call back Pt. Is currently in hospital and needs to reschedule his 06/21/[address] [facility] next available is december of 2024. Caller refuses to schedule that far out or be added to wait list due to Pt. Having cancer. She is asking for call back for a sooner appt. documented in this encounter Plan of Treatment Upcoming Encounters Date Type Department Care Team (Late st Contact Info) Description 09/27/2024 11:00 AM EST Office Visit Hematology/Oncology [facility] [address] [facility] [place] [phone] Xavi Gramajo MD [address] [facility] [place] [address] 10/13/2024 11:20 AM EST Office Visit Neurology [facility] [address] [facility] [place] [address] Ellie Duncan MD 200 [facility] [place] [address] 10/27/2024 12:00 PM EDT Cardiac Studies Cardiac Studies, [place] [address] [place] [phone] 05/22/2025 10:45 AM EDT Office Visit Urology, [facility] [address] [place] [address] Valdemar Prado MD [address] [place] [address] Health Maintenance Due Date Last Done Comments Albumin/Creatinine Ratio 1963 DTap/Tdap Vaccines (1 - Tdap) 1964 Adult Wellness Visit 02/01/2020 01/31/2019 CKD PHOS USE SMARTSET 32327 09/11/202408/17, 09/11/2023, 07/14/2021, Additional history exists COVID-19 Vaccine ( season) 2024 08/11/2024, 07/22/2022, 07/22/2022, Additional history exists Depression Screening 12/26/2024 12/27/2023 GFR 01/22/2025 07/24/2024, 03/17, 11/12/2023, Additional history exists CKD HGB USE SMARTSET 77450 07/24/202507/24, 07/24/2024, 04/12/2024, Additional history exists Pneumococcal [...] Power of Attor philipp? No Care Teams Assigner Relationship Specialty Start Date End Date Chuy Batista MD [address] [place] [address] PCP - General Family Medicine 09/14/24 documented as of this encounter
--- OUTSIDE RECORDS SUMMARY | 2024-09-23 20:08 | External Medical Summary | Summary of Care ---
Author Name Unknown Organization [facility] Address [address] [place] [address] Phone [phone] Care Team Providers Care Roofing Foreman Name Role Phone Chuy Batista MD Primary Care Provider +1- [phone] Reason for Visit * Reason Onset Date Comments Appointment 06/20/2024 Encounter Details Date Type Department Care Team (Late st Contact Info) Description 06/20/2024 Telephone [facility]rology, [facility] [address] Services, Scheduling [address] [place] [address] Appointment Allergies Active Allergy Reactions Criticality Noted [...] mRNA, LNP-s, No Pre serve, 2-Dose Series ([employer]) 05/30/2021,10/29/2020,10/08/2020 COVID-19, LNP-s, No Preserve , Prosper-sucrose, [...] Telephone Encounter - Rosio Mix OSA - 06/20/2024 12:29 PM EST Pt is on the line and she didn't meant to cancel the appointment tomorrow for her and I dont see it avail she needs to know if someone can call her back he needs the appointment he was in the hospital call back at [phone] documented in this encounter Plan of Treatment Upcoming Encounters Date Type Department Care Team (Late st Contact Info) Description 09/27/2024 11:00 AM EST Office Visit Hematology/Oncology [facility] [place] [address] [place] [address] Xavi Gramajo MD [address] [place] [address] 10/13/2024 11:20 AM EST Office Visit Neurology [facility] [place] [address] [place] [address] Ellie Duncan MD [address] [place] [address] [place] [address] 10/27/2024 12:00 PM EDT Cardiac Studies Cardiac Studies, [address] [place] [address] 05/22/2025 10:45 AM EDT Office Visit Urology, [facility] [address] [place] [address] Valdemar Prado MD [address] [place] [address] Health Maintenance Due Date Last Done Comments Albumin/Creatinine Ratio 1963 DTap/Tdap Vaccines (1 - Tdap) 1964 Adult Wellness Visit 02/01/2020 01/31/2019 CKD PHOS USE SMARTSET 30210 09/11/202408/17, 09/11/2023, 07/14/2021, Additional history exists COVID-19 Vaccine ( season) 2024 08/11/2024, 07/22/2022, 07/22/2022, Additional history exists Depression Screening 12/26/2024 12/27/2023 GFR 01/22/2025 07/24/2024, 03/17, 11/12/2023, Additional history exists CKD HGB USE SMARTSET 29026 07/24/202507/24, 07/24/2024, 04/12/2024, Additional history exists Pneumococcal [...] Power of Attor philipp? No Care Teams Roofing Foreman Relationship Specialty Start Date End Date Chuy Batista MD [address] [place] [address] PCP - General Family Medicine 09/14/24 documented as of this encounter
--- OUTSIDE RECORDS SUMMARY | 2024-09-23 20:08 | External Medical Summary | Summary of Care ---
Author Name Unknown Organization [facility] Address [address] [place] [address] Phone [phone] Care Team Providers Care Parcel Post Delivery Name Role Phone Chuy Batista MD Primary Care Provider +1- [phone] Reason for Referral * Evaluate & Treat - Unlimited Visits (Within 30 days (routine)) - Authorized Specialty Diagnoses / Procedures Referred By Monik de leon Referred To Contact Urology Diagnoses Urothelial carcinoma of bladder (HCC) Devlin catheter in place Chuy Batista MD [address] [place] [address] Phone: tel: fax: Referral ID Status Reason Start Date Expiration Date Visits Requested Visits Authorized [id number] Authorized Specialty Services Required 09/08/2024 999 999 Question Answer Referral Priority Within 30 days (routine) Where should this appointment be scheduled? [facility] What is the patient being referred for? Urinary Concerns Reason for Visit * Reason Onset Date Comments Advice 09/07/2024 Urinary Tract Infection Symptoms 09/07/2024 Encounter Details Date Type Department Care Team (Late st Contact Info) Description [facility]/07[facility] [address] [place] [address] Chuy Batista MD [address] [place] [address] Advice; Urinary Tract Infection Symptoms Allergies Active Allergy [...] Take 119 g by mouth once. Active [facility] Wound/Burn Dressing External GelIndications:P ressure injury [...] mRNA, LNP-s, No Pre serve, 2-Dose Series ([employer]) 05/30/2021,10/29/2020,10/08/2020 COVID-19, LNP-s, No Preserve , Prosper-sucrose, [...] Encounter - Ania Neal OSA - 09/11/2024 2:25 PM EST Spoke to Nilson Almendraez and she placed patient on wait list. 09/11/2024 * Telephone Encounter - Chuy Batista MD - 09/08/2024 5:58 PM EST There are other messages where she has contacted Dr Prado's office - looks like he would be willing to see - can assist with appt. * Telephone Encounter - Damari Stock LPN - 09/08/2024 11:32 AM EST Patient states HH came and replaced catheter. Patient needs a visit with Urology and states that she can not get him to [place]. She is asking if she can get a referral to Dr. Valdemar Tim. states he has been having some confusion as well as following symptoms. UTI: Symptoms: >7 days durations: no: 5 days Rigors ( shaking chills): Mild Flank pain - midback, severe, new occurring with onset of these symptoms: slight lower back pain Nausea, vomiting, or abdominal pain: no Temperature > 101F: no Recent onset of or change in vaginal discharge, odor, itching, or dyspareunia: no History: Never seen in our office before: no Age > 65 years: yes: Diabetes:no Currently : NA Immunosuppressed (e.g., steroids, chemotherapy): yes Renal calculi or renal insufficiency: no Known functional or structural urologic abnormalities: yes Urinary tract catheterization (or other urologic procedure or instrumentation within last 2 weeks):yes Discharge from hospital or usp within last 2 weeks: yes- 08/27 >4 UTI's within last 12 months: yes Failure of antibiotic treatment for UTI within last 3 months: no Acute pyelonephritis within last 3 months: unknown Contact with a partner infected with an STD: no * Telephone Encounter - Chuy Batista MD - 09/07/2024 8:46 PM EST Appt would be best - but given his functional abilities, he may not be able to get in for a visit. If the catheter leaking is the only symptom/concern, they may want to contact urology for advice inmanagement. Please see if there are other symptoms that concern them for UTI. Urine studies orderedbut would make sure that they are aware that every patient with a catheter in place will have bacteria in the urine and that is not always indicative of infection. * Telephone Encounter - Diana Ariza OSA - 09/07/2024 4:28 PM EST Established female patient age 18+ calling with UTI symptoms of (Call Details not required): Pt hasa catheter and it's leaking. Pt's concerned he may have a UTI. Please call patient back at: [phone] Any additional information to pass onto the RN: Pt's requesting Urine test and if positive antibiotics. Note: - Route UTI concerns for established female patient age 18+ to P [facility] NURSE TRIAGE POOL [[id number]] - For males of any age, females younger than 18 years old, and non-established females 18+, schedule an appointment. If unable to schedule, use [employer] and include CALL DETAILS. Route TE to Clinic Nurse Pool. documented in this encounter Plan of Treatment Upcoming Encounters Date Type Department Care Team (Late st Contact Info) Description 09/14/2024 1:00 PM EST Cardiac Studies Cardiac Studies, [address] [place] [address] 09/27/2024 11:00 AM EST Office Visit Hematology/Oncology [facility] [address] [place] [phone] Xavi Gramajo MD 200 [facility] [place] [address] 10/13/2024 11:20 AM EST Office Visit Neurology [facility] [address] [facility] [place] [address] Ellie Duncan MD 200 [facility] [place] [address] 05/22/2025 10:45 AM EDT Office Visit Urology, [facility] [address] [place] [address] Valdemar Prado MD [address] [place] [address] Scheduled Orders Name Type Priority Associated Diagnoses Orde r Schedule URINALYSIS, REFLEX TO MICROSCOPIC Lab Routine Urinary tract infection symptoms Expected: 09/07/2024, Expires: 09/07/2025 CULTURE, URINE, QUANTITATIVE Lab Routine Urinary tract infection symptoms Expected: 09/07/2024, Expires: 09/07/2025 Scheduled Referrals Name Type Priority Associated Diagnoses Orde r Schedule ADULT/PEDS UROLOGY REFERRAL OP Referral Within 30 days (routine) Urothelial carcinoma of bladder (HCC) Devlin catheter in place Ordered: 09/08/2024 Health Maintenance Due Date Last Done Comments Albumin/Creatinine Ratio 1963 DTap/Tdap Vaccines (1 - Tdap) 1964 Adult Wellness Visit 02/01/2020 01/31/2019 CKD PHOS USE SMARTSET 52349 09/11/202408/17, 09/11/2023, 07/14/2021, Additional history exists COVID-19 Vaccine ( season) 2024 08/11/2024, 07/22/2022, 07/22/2022, Additional history exists Depression Screening 12/26/2024 12/27/2023 GFR 01/22/2025 07/24/2024, 03/17, 11/12/2023, Additional history exists CKD HGB USE SMARTSET 69338 07/24/202507/24, 07/24/2024, 04/12/2024, Additional history exists Pneumococcal [...] encounter Visit Diagnoses Diagnosis Urinary tract infection symptoms- Primary Other symptoms involving urinary system Urothelial carcinoma of bladder (HCC) Devlin catheter in place Other postprocedural status documented in this encounter Advance Directives * [...] Power of Attor philipp? No Care Teams Parcel Post Delivery Relationship Specialty Start Date End Date Chuy Batista MD PCP - General Family Medicine 05/31/24 documented as of this encounter
--- OUTSIDE RECORDS SUMMARY | 2024-09-23 20:08 | External Medical Summary | Summary of Care ---
Author Name Unknown Organization [facility] Address [address] [place] [address] Phone [phone] Care Team Providers Care Black Puller Name Role Phone Chuy Batista MD Primary Care Provider +1- [phone] Reason for Visit * Reason Onset Date Comments Advice 09/07/2024 Appointment 09/07/2024 Encounter Details Date Type Department Care Team (Late st Contact Info) Description 09/07/2024 [facility] [address] [place] [phone] Chuy Batista MD [address] [facility] [place] [address] Advice; Appointment Allergies Active Allergy Reactions Criticality Noted Date Comments Chocolate Diarrhea 05/14/2023 Chocolate Flavoring Agent (Non-Screening) High 10/09/2023 Other Reaction(s): DIARRHEA/ Cannot take, interacts w/ medications. Clindamycin Hcl 09/24/2005 rash Cranberry 10/20/2023 Iodinated Contrast Media 10/01/2015 Ioversol Other (Please comment) High 08/10/[address] IV DYE Pembrolizumab High 10/10/2023 Other Reaction(s): myocarditis documented as of this encounter (statuses as of 09/15/2024) Medications Syringe/Needle, Disp, 25G X 1-1/2" 3 [...] as of this encounter (statuses as of 09/15/2024) Active Problems Problem Noted Date Diagnosed Date [...] as of this encounter (statuses as of 09/15/2024) Resolved Problems Problem Noted Date Diagnosed Date [...] as of this encounter (statuses as of 09/15/2024) Immunizations Name Administration Dates Next Due COVID-19 mRNA, LNP-s, No Pre serve, 2-Dose Series (QPD) 05/30/2021,10/29/2020,10/08/2020 COVID-19, LNP-s, No Preserve , Prosper-sucrose, [...] PM EST Received call from nurse at [facility] office regarding pt, as he was unable [...] 09/27/2024 11:00 AM EST Office Visit Hematology/Oncology [facility] [address] [facility] [place], [place] [phone] Xavi Gramajo MD [address] [facility] [place] [address] 10/13/2024 11:20 AM EST Office Visit Neurology [facility] [address] [facility] [place] [address] Ellie Duncan MD [address] [facility] [place] [address] 10/27/2024 12:00 PM EDT [facility] [place] [phone] 05/22/2025 10:45 AM EDT Office Visit Urology, [facility] [address] [facility] [place] [address] Valdemar Prado MD 27 [facility] [place] [address] Health Maintenance Due Date Last Done Comments Albumin/Creatinine Ratio 1963 DTap/Tdap Vaccines (1 - Tdap) 1964 Adult Wellness Visit 02/01/2020 01/31/2019 CKD PHOS USE SMARTSET 06646 09/11/202408/17, 09/11/2023, 07/14/2021, Additional history exists COVID-19 Vaccine ( season) 2024 08/11/2024, 07/22/2022, 07/22/2022, Additional history exists Depression Screening 12/26/2024 12/27/2023 GFR 01/22/2025 07/24/2024, 03/17, 11/12/2023, Additional history exists CKD HGB USE SMARTSET 75356 07/24/202507/24, 07/24/2024, 04/12/2024, Additional history exists Pneumococcal [...] Power of Attor philipp? No Care Teams Black Puller Relationship Specialty Start Date End Date Chuy Batista MD [address] [place] [address] PCP - General Family Medicine 09/14/24 documented as of this encounter
--- OUTSIDE RECORDS SUMMARY | 2024-09-23 20:08 | External Medical Summary | Summary of Care ---
Author Name Unknown Organization [facility] Address [address] [place] [address] Phone [phone] Care Team Providers Care Gray Tender Name Role Phone Chuy Batista MD Primary Care Provider +1- [phone] Reason for Visit * Reason Onset Date Comments Advice 09/07/2024 Appointment 09/07/2024 Encounter Details Date Type Department Care Team (Late st Contact Info) Description 09/07/2024 [facility] [address] [place] [phone] Chuy [...] mRNA, LNP-s, No Pre serve, 2-Dose Series (EmergenSee) 05/30/2021,10/29/2020,10/08/2020 COVID-19, LNP-s, No Preserve , Prosper-sucrose, [...] Thank you. * Telephone Encounter - Kayla Hidns OSA - 09/14/2024 3:57 PM EST Received call from nurse at [facility] office regarding pt, as he [...] 09/27/2024 11:00 AM EST Office Visit Hematology/Oncology [facility] [address] [facility] [place], [place] [phone] Xavi Gramajo MD 200 [facility] [place] [address] 10/13/2024 11:20 AM EST Office Visit Neurology [facility] [address] [facility] [place] [address] Ellie Duncan MD [address] [facility] [place] [address] 10/27/2024 12:00 PM EDT [facility] [address] [facility] [place] [phone] 05/22/2025 10:45 AM EDT Office Visit Urology, [facility] [address] [facility] [place] [address] Valdemar Prado MD 27 [facility] [place] [address] Health Maintenance Due Date Last Done Comments Albumin/Creatinine Ratio 1963 DTap/Tdap Vaccines (1 - Tdap) 1964 Adult Wellness Visit 02/01/2020 01/31/2019 CKD PHOS USE SMARTSET 20737 09/11/202408/17, 09/11/2023, 07/14/2021, Additional history exists COVID-19 Vaccine ( season) 2024 08/11/2024, 07/22/2022, 07/22/2022, Additional history exists Depression Screening 12/26/2024 12/27/2023 GFR 01/22/2025 07/24/2024, 03/17, 11/12/2023, Additional history exists CKD HGB USE SMARTSET 43510 07/24/202507/24, 07/24/2024, 04/12/2024, Additional history exists Pneumococcal [...] Power of Attor philipp? No Care Teams Gray Tender Relationship Specialty Start Date End Date Chuy Batista MD [address] [place] [address] PCP - General Family Medicine 09/14/24 documented as of this encounter
--- OUTSIDE RECORDS SUMMARY | 2024-09-23 20:08 | External Medical Summary | Summary of Care ---
Author Name Unknown Organization [facility] Address [address] [place] [address] Phone [phone] Care Team Providers Care Land Acquisition Analyst Name Role Phone Chuy Batista MD Primary Care Provider +1- [phone] Reason for Visit * Reason Onset Date Comments Advice 09/07/2024 Appointment 09/07/2024 Encounter Details Date Type Department Care Team (Late st Contact Info) Description 09/07/2024 [facility] [address] [place] [phone] Chuy Batista MD 226 [facility] [place] [address] Advice; Appointment Allergies [...] mRNA, LNP-s, No Pre serve, 2-Dose Series (Loomia) 05/30/2021,10/29/2020,10/08/2020 COVID-19, LNP-s, No Preserve , Prosper-sucrose, [...] PM EST Received call from nurse at [facility] office regarding pt, as he was [...] 09/27/2024 11:00 AM EST Office Visit Hematology/Oncology [facility] [address] [facility] [address] [facility] [place], [place] [phone] Xavi Gramajo MD [address] [facility] [place] [address] 10/13/2024 11:20 AM EST Office Visit Neurology [facility] [address] [facility] [place] [address] Ellie Duncan MD [address] [facility] [place] [address] 10/27/2024 12:00 PM EDT Cardiac Studies [facility] [address] [facility] [place] [phone] 05/22/2025 10:45 AM EDT Office Visit Urology, [facility] [address] [facility] [place] [address] Valdemar Prado MD 27 [facility] [place] [address] Health Maintenance Due Date Last Done Comments Albumin/Creatinine Ratio 1963 DTap/Tdap Vaccines (1 - Tdap) 1964 Adult Wellness Visit 02/01/2020 01/31/2019 CKD PHOS USE SMARTSET 18320 09/11/202408/17, 09/11/2023, 07/14/2021, Additional history exists COVID-19 Vaccine ( season) 2024 08/11/2024, 07/22/2022, 07/22/2022, Additional history exists Depression Screening 12/26/2024 12/27/2023 GFR 01/22/2025 07/24/2024, 03/17, 11/12/2023, Additional history exists CKD HGB USE SMARTSET 84712 07/24/202507/24, 07/24/2024, 04/12/2024, Additional history exists Pneumococcal [...] Power of Attor philipp? No Care Teams Land Acquisition Analyst Relationship Specialty Start Date End Date Chuy Batista MD [address] [place] [address] PCP - General Family Medicine 09/14/24 documented as of this encounter
--- OUTSIDE RECORDS SUMMARY | 2024-09-23 20:09 | External Medical Summary | Summary of Care ---
Author Name Unknown Organization [facility] Address [address] [place] [address] Phone [phone] Care Team Providers Care Plant And Machinery Valuer Name Role Phone Chuy Batista MD Primary Care Provider +1- [phone] Reason for Visit * Reason Onset Date Comments Advice 09/07/2024 Home Health 09/07/2024 Encounter Details Date Type Department Care Team (Late st Contact Info) Description 09/07/2024 [facility] [place] [phone] Chuy Batista MD 226 [facility] [place] [address] Advice; Home Health Allergies Active Allergy Reactions Criticality Noted Date Comments Chocolate Diarrhea 05/14/2023 Chocolate Flavoring Agent (Non-Screening) High 10/09/2023 Other Reaction(s): DIARRHEA/ Cannot take, interacts w/ medications. Clindamycin Hcl 09/24/2005 rash Cranberry 10/20/2023 Iodinated Contrast Media 10/01/2015 Ioversol Other (Please comment) High 08/10/[address] IV DYE Pembrolizumab High 10/10/2023 Other Reaction(s): myocarditis documented as of this encounter (statuses as of 09/07/2024) Medications Syringe/Needle, Disp, 25G X 1-1/2" 3 [...] at noon and 1 Capsule before bedtime. 01/08/20 25 Active Amoxicillin-Pot Clavulanate 875-125 MG Oral Tablet (Augmentin) Take 1 Tablet by mouth in the morning and 1 Tablet before bedtime. 08/23/19 25 Active documented as of this encounter (statuses as of 09/07/2024) Active Problems Problem Noted Date Diagnosed Date [...] as of this encounter (statuses as of 09/07/2024) Resolved Problems Problem Noted Date Diagnosed Date [...] as of this encounter (statuses as of 09/07/2024) Immunizations Name Administration Dates Next Due COVID-19 mRNA, LNP-s, No Pre serve, 2-Dose Series (MyTwinPlace) 05/30/2021,10/29/2020,10/08/2020 COVID-19, LNP-s, No Preserve , Prosper-sucrose, [...] No 12/27/2023 Does the household have a unm children's hospitallar source of income? (Household - for [...] Encounter - Chuy Batista MD - 09/07/2024 9:01 PM EST Urine studies ordered in a different encounter. * Telephone Encounter - Damari Benitez LPN - 09/07/2024 4:18 PM EST HH Concerns Ted clinical medical coding manager Calling from: [facility] Narrative: clinical medical coding manager calling with f/u on pt. community development aide called 911. Pressfitter came and helped him up into bed. Per director of critical care refused to allow Pressfitter to take ER for eval. Pt has small skin tear on left elbow. would like to have urinalysis order. indicated pt has increased confusion and there is sediment noted in his tatum cath bag. Per EMT VS are stable. [facility] Home Health Called [facility] to get more details. Pt was using bedside commode and fell on his butt. She was unable to get him so she put the mattress on floor. He did not hit his head. Pt has increased confusion. No temp. There is a lot of sediment in his cath bag. Urine is light yellow, does have pt drinking lots of water. No burning. She is worried pt needs ABX for UTI. Please advise. * Telephone Encounter - Damari Benitez LPN - 09/07/2024 12:57 PM EST HH Concerns JonathanJase immigration case manager, Calling from: [facility] Report/Concerns of: Fall Symptoms: see narrative Vitals: None taken Narrative: Pt has a HH Aide, the aide contacted immigration case manager Lata about an fall in the home. Today when the aide arrived to the home she found pt on a mattress on the floor. reported pt afall yesterday. was unable to get pt off the floor so she put a mattress on the floor. Aide didn't have any details of the fall. Lata advised the aide is calling 911 for lift assist and possible eval to ER. No further update on pt. Call back [facility] HH intake [phone] and [facility] with any advice or orders * Telephone Encounter - Fabby Shine OSA - 09/07/2024 12:56 PM EST Reason for patient's call: Patient's latest condition Caller was transferred to [place] at the nurse line. documented in this encounter Plan of Treatment Upcoming Encounters Date Type Department Care Team (Late st Contact Info) Description 09/14/2024 1:00 PM EST Cardiac Studies Cardiac Studies, [facility] 132 [facility] [place] [address] 09/27/2024 11:00 AM EST Office [facility] [place] [address] [place] [phone] Xavi Gramajo MD [address] [facility] [place] [address] 10/13/2024 11:20 AM EST Office Visit Neurology [facility] [place] [address] [facility] [place] [address] Ellie Duncan MD [address] [facility] [place] [address] Health Maintenance Due Date Last Done Comments Albumin/Creatinine Ratio 1963 DTap/Tdap Vaccines (1 - Tdap) 1964 Adult Wellness Visit 02/01/2020 01/31/2019 CKD PHOS USE SMARTSET 28381 09/11/202408/17, 09/11/2023, 07/14/2021, Additional history exists COVID-19 Vaccine (2023- season) 2024 08/11/2024, 07/22/2022, 07/22/2022, Additional history exists Depression Screening 12/26/2024 12/27/2023 GFR 01/22/2025 07/24/2024, 03/17, 11/12/2023, Additional history exists CKD HGB USE SMARTSET 20324 07/24/202507/24, 07/24/2024, 04/12/2024, Additional history exists Pneumococcal [...] Power of Attor philipp? No Care Teams Plant And Machinery Valuer Relationship Specialty Start Date End Date Chuy Batista MD PCP - General Family Medicine 05/31/24 documented as of this encounter
--- OUTSIDE RECORDS SUMMARY | 2024-09-23 20:09 | External Medical Summary | Summary of Care ---
Author Name Unknown Organization [facility] Address [address] [facility] [place] [address] Phone [phone] Care Team Providers Care Philanthropy Officer Name Role Phone Chuy Batista MD Primary Care Provider +1- [phone] Reason for Visit * Reason Onset Date Comments Hospital Follow-Up 08/25/2024 JEANNE ([facility]) Encounter Details Date Type Department Care Team (Late st Contact Info) Description 08/25/2024 Telephone [facility] [place] [address] [place] [phone] Lisa Wilburn, H[place] Hospital Follow-Up (JEANNE ([facility])) Allergies Active Allergy Reactions Criticality Noted Date Comments Chocolate Diarrhea 05/14/2023 Chocolate Flavoring Agent (Non-Screening) High 10/09/2023 Other Reaction(s): DIARRHEA/ Cannot take, interacts w/ medications. Clindamycin Hcl 09/24/2005 rash Cranberry 10/20/2023 Iodinated Contrast Media 10/01/2015 Ioversol Other (Please comment) High 08/10/[address] IV DYE Pembrolizumab High 10/10/2023 Other Reaction(s): myocarditis documented as of this encounter (statuses as of 08/25/2024) Medications Syringe/Needle, Disp, 25G X 1-1/2" 3 [...] Take 119 g by mouth once. Active [facility] W[facility]/Burn Dressing External GelIndications:Pr essure injury [...] as of this encounter (statuses as of 08/25/2024) Active Problems Problem Noted Date Diagnosed Date [...] as of this encounter (statuses as of 08/25/2024) Resolved Problems Problem Noted Date Diagnosed Date [...] as of this encounter (statuses as of 08/25/2024) Immunizations Name Administration Dates Next Due COVID-19 mRNA, LNP-s, No Pre serve, 2-Dose Series (UsTrendy) 05/30/2021,10/29/2020,10/08/2020 COVID-19, LNP-s, No Preserve , Prosper-sucrose, [...] encounter Miscellaneous Notes * Telephone Encounter - Lisa Wilburn RN - 08/25/2024 11:27 AM EST Transitions of Care Note Reason for Referral:Recent Admission Phone visit for follow up: JEANNE Admitted to: [facility], Date: 08/21/2024 Discharged to: Home, Date: 08/24/2024 Diagnosis driving hospitalization: Upper Respiratory Tract Infection with Influenza A and Para influenza virus, Acute Complicated UTI Source/Contact: Patient's spouse SUBJECTIVE Consent: Verbal consent for review of hospital discharge: Yes REVIEW OF SYSTEMS Patient/Other Reports: Current patient/caregiver problems or concerns: states he is doing well at home. Still weak, anticipating PT/OT from [facility] Home Health to help. CV: Denies problems Pulmonary: Denies problems Chills/Sweats/Fever:Denies chills/sweats Denies fever Appetite:Staying hydrated, eating small amounts more often Current diet: Regular Bowel: date of last BM: 08/22/2024, per spouse using stool softener, OTC meds Bladder: denies problems and ostomy/indwelling catheter: Devlin Wound (If applicable): N/A Pain:Location- Mild pain to ankle, from remote fall, using Lidocaine patches Sleep:Denies problems FUNCTIONAL STATUS: ADL'S: Needs Assistance With:All ADL's as pt is completely dependent IADL'S: Needs Assistance With:Grocery Shopping, Cooking food, Routine Housework, Taking medications, and Attending to safety Cognitive and Mental Health: denies problems, alert and oriented x 3, and able to communicate, understand instructions, process information. Per spouse doing much better MEDICATION RECONCILIATION Medications: Reviewed all new medications with spouse. She declined to do full medication reconciliation. New medications: Advanced Probiotic, Amoxicillin, Benzonatate, Hydroxyzine, Tamiflu ASSESSMENT Medication Risk Assessment: No risks identified Did patient fail outpatient treatment? No Discharge instructions available for review? Yes PLAN Symptom Monitoring Interventions:Member/caregiver education - signs and symptoms to contact PrimaryCare (DO NOT DELETE-Three michel symptoms patient is to report to PCP) 1. Chest Pain/SOB 2. Fever/chills 3. Any worsening symptoms Camper AssemblerStamp Redemption Clerk of Care interventions/Action Plan: 5 - 7 day follow-up with PCP in place - Date: Changed 08/28/2024 visit to video per spouse request. Able to do this via paged link Educated on role of JEANNE completed with patient/caregiver. Educated patient/caregiver on patient right to have input on JEANNE plan of care. Verification of Home Health/DME if indicated: YES [facility] Home Health - spouse states she has not heard from [facility]. [facility] called Has hospital bed, raymond RASMUSSEN Identified Care Gaps: Yes Care Gaps closed this call: Appointment made or confirmed, Transition of Care follow-up communication, and Other: [facility] Case Management called to request CM services for patient, [facility] Home Health called to check on services Re-evaluation of Plan of Care and progress towards goals achievement: Patient education this visit: Verbal, Confirmed PCP appointment 08/28/2024, addressed reasons to call sooner as above. Plan to instructed to call Primary Care Provider with change in symptoms or as needed before next follow-up, discharge needs met, verbalizes understanding and agrees with plan. Lisa Wilburn, [place] documented in this encounter Plan of Treatment Upcoming Encounters Date Type Department Care Team (Late st Contact Info) Description 08/28/2024 11:00 AM EST Telemedicine [facility] Amanda Singh [address] [address] [phone] Chuy Batista MD [address] [place] [address] 09/04/2024 1:00 PM EST Procedure Only Urology, [place] [address] [facility] [place] [address] Ernesto Villareal MD [address] [place] [address] 09/14/2024 1:00 PM EST Cardiac Studies Card[facility] Studies, [facility] [address] 09/27/2024 11:00 AM EST Office Visit Hematology/Oncology [facility] [address] [place] [address] Xavi Gramajo MD 200 [facility] [place] [address] 10/13/2024 11:20 AM EST Office Visit Neurology [facility] [address] [place] [address] Ellie Duncan MD 200 [facility] [place] [address] Health Maintenance Due Date Last Done Comments Albumin/Creatinine Ratio 1963 DTap/Tdap Vaccines (1 - Tdap) 1964 Adult Wellness Visit 02/01/2020 01/31/2019 COVID-19 Vaccine ( season) 2024 07/22/2022, 07/22/2022, 02/11/2022, Additional history exists CKD PHOS USE SMARTSET 96018 09/11/202408/17, 09/11/2023, 07/14/2021, Additional history exists Depression Screening 12/26/2024 12/27/2023 GFR 01/22/2025 07/24/2024, 03/17, 11/12/2023, Additional history exists CKD HGB USE SMARTSET 15833 07/24/202507/24, 07/24/2024, 04/12/2024, Additional history exists Pneumococcal [...] Power of Attor philipp? No Care Teams Philanthropy Officer Relationship Specialty Start Date End Date Chuy Batista MD PCP - General Family Medicine 05/31/24 documented as of this encounter
--- OUTSIDE RECORDS SUMMARY | 2024-09-23 20:09 | External Medical Summary | Summary of Care ---
Author Name Unknown Organization [facility] Address [address] [place] [address] Phone [phone] Care Team Providers Care Take Away Man Name Role Phone Chuy Batista MD Primary Care Provider +1- [phone] Reason for Visit * Reason Onset Date Comments Procedure 08/31/2024 Appointment 08/31/2024 Cystoscopy Encounter Details Date Type Department Care Team (Late st Contact Info) Description 08/31/2024 Telephone Urology, [place] [address] [place] [address] Ernesto Villareal MD [address] [place] [address] Procedure; Appointment (Cystoscopy ) Allergies Active Allergy Reactions Criticality Noted [...] Take 119 g by mouth once. Active [facility] Wound/Burn Dressing External GelIndications:Pr essure injury of [...] mRNA, LNP-s, No Pre serve, 2-Dose Series ([employer]) 05/30/2021,10/29/2020,10/08/2020 COVID-19, LNP-s, No Preserve , Prosper-sucrose, [...] No 12/27/2023 Does the household have a [facility] source of income? (Household - [...] Encounter - Chuy Batista MD - 09/07/2024 9:34 PM EST Noted - there are several other encounters on same issue. Pt has been offered eval at our office - not sure they can get him in. * Telephone Encounter - Valdemar Prado MD - 09/07/2024 6:12 PM EST Noted. It seems I have seen the patient 1 time. Patient is transferred care from at least 2 other urologists due to ongoing to satisfaction. He is welcome to follow-up with our service if he desires or transfer care to different Urology. Be scheduled for office visit next available. Thanks, HM * Telephone Encounter - Kate Chakraborty LPN - 09/07/2024 4:10 PM EST I called and spoke with the patients , and stated due to no provider in office and patients concern for UTI/fall, he should be evaluated by the ED . Patients declined ED. She states she was told by EMS, that [place] [facility], and [place]ovirus. She is absolutely not takinghim to the ER or out on major highway. She states Dr Prado's office did not call her when pt canceled Dr Villareal follow up. She was offered [place] and declined, was offered other ED options and declined all. Patient voiced her dissatisfaction numerous times on the phone. I apologized and explained Dr Prado is not in the [facility] office today or tomorrow, outside of the recommendations I provided her, my options were exhausted She again stated her dissatisfaction, asked for my name and said "wow, no wonder this country is inthe state it's in, which is crap." She has me to call PCP to schedule an appt for pt. I advised I could message the office but can not call in her place to schedule an appointment. She again stated her dissatisfaction with "that's ridiculous, this is a joke, this is what we get for [facility]?" I told her our form drafter would be in contact to set up his visit with Dr Prado, and she requested he be placed on the wait list. She then stated her dissatisfaction and said I better get off the phone before I say things I shouldn't and I disconnected the call. Routing to providers for further advise. Thanks Kate SMITH * Telephone Encounter - Candis Mota OSA - 09/07/2024 3:41 PM EST Patient's states she is not able to physically get patient to [place]. She is wanting cystoscopy to be scheduled in [facility]. states his catheter is leaking. Patient is having confusion. is worried he may have a UTI. Patient fell last night going to the bathroom. wasn't able to pick him up. She called EMS today and they got him to the couch. Patient is not strong enough to use a walker. * Telephone Encounter - Elva Cardona RN - 09/01/2024 10:41 AM EST Attempted to return call to pt, no answer at this time LMOM for pt to return call. * Telephone Encounter - Edie Bhakta OSA - 08/31/2024 2:05 PM EST Patient calling in , needs to reschedule cysto . Pt just returned home from rehab and she willnot be able to get him out of the house yet. Also is requesting call back from nurse before they schedule, please advise, thanks documented in this encounter Plan of Treatment Upcoming Encounters Date Type Department Care Team (Late st Contact Info) Description 09/14/2024 1:00 PM EST Cardiac Studies Cardiac Studies, [facility] [address] [facility] [place] [address] 09/27/2024 11:00 AM EST Office Visit Hematology/Oncology [facility] [address] [facility] [place] [phone] Xavi Gramajo MD [address] [place] [address] [place] [address] 10/13/2024 11:20 AM EST Office Visit Neurology [facility] [address] [facility] [place] [address] Ellie Duncan MD [address] [facility] [place] [address] Health Maintenance Due Date Last Done Comments Albumin/Creatinine Ratio 1963 DTap/Tdap Vaccines (1 - Tdap) 1964 Adult Wellness Visit 02/01/2020 01/31/2019 CKD PHOS USE SMARTSET 30378 09/11/202408/17, 09/11/2023, 07/14/2021, Additional history exists COVID-19 Vaccine ( season) 2024 08/11/2024, 07/22/2022, 07/22/2022, Additional history exists Depression Screening 12/26/2024 12/27/2023 GFR 01/22/2025 07/24/2024, 03/17, 11/12/2023, Additional history exists CKD HGB USE SMARTSET 08621 07/24/202507/24, 07/24/2024, 04/12/2024, Additional history exists Pneumococcal [...] Power of Attor philipp? No Care Teams Take Away Man Relationship Specialty Start Date End Date Chuy Batista MD PCP - General Family Medicine 05/31/24 documented as of this encounter
--- OUTSIDE RECORDS SUMMARY | 2024-09-23 20:09 | External Medical Summary | Summary of Care ---
Author Name Unknown Organization [facility] Address [address] [facility] [address] Phone [phone] Care Team Providers Care Counter Sales Person Name Role Phone Arnold Willis MD Primary Care Provider +1- [phone] Reason for Visit * Reason Onset Date Comments Medication Refill 09/08/2024 Encounter Details Date Type Department Care Team (Late st Contact Info) Description [facility]/08[facility] [address] [place] [address] Arnold Willis MD [address] [facility] [place] [address] Allergies Active Allergy Reactions Criticality Noted Date Comments Chocolate Diarrhea 05/14/2023 Chocolate Flavoring Agent (Non-Screening) High 10/09/2023 Other Reaction(s): DIARRHEA/ Cannot take, interacts w/ medications. Clindamycin Hcl 09/24/2005 rash Cranberry 10/20/2023 Iodinated Contrast Media 10/01/2015 Ioversol Other (Please comment) High 08/10/[address] IV DYE Pembrolizumab High 10/10/2023 Other Reaction(s): myocarditis documented as of this encounter (statuses as of 09/09/2024) Medications Syringe/Needle, Disp, 25G X 1-1/2" 3 [...] Take 119 g by mouth once. Active [facility] Wound/Burn Dressing External GelIndications:P ressure [...] pain 90 Tablet 1 09/08/19 25 Active Methocarbamol 500 MG Oral Tablet (Robamol) Take 1 tab by mouth three times per day as needed for back pain 90 Tablet 1 07/26/20 24 025 Discontin ued(Refil l) documented as of this encounter (statuses as of 09/09/2024) Active Problems Problem Noted Date Diagnosed Date [...] as of this encounter (statuses as of 09/09/2024) Resolved Problems Problem Noted Date Diagnosed Date [...] as of this encounter (statuses as of 09/09/2024) Immunizations Name Administration Dates Next Due COVID-19 mRNA, LNP-s, No Pre serve, 2-Dose Series ([employer]) 05/30/2021,10/29/2020,10/08/2020 COVID-19, LNP-s, No Preserve , Prosper-sucrose, [...] Telephone Encounter - Arnold Willis MD - 09/08/2024 1:47 PM ESTSigned Prescriptions: Disp Refills Methocarbamol 500 MG Oral Tablet (Robamol) 90 Tab*1 Sig: Take 1 tab by mouth three times per day as needed for back pain Authorizing Provider: ARNOLD WILLIS * Telephone Encounter - Arnold Willis MD - 09/08/2024 1:46 PM EST With his weakness and falls and mental status, please ask pt and to use this medication as little as possible as side effects could contribute to all of the above. * Telephone Encounter - Venkat Villavicencio OSA - 09/08/2024 11:01 AM EST Did you pend patient's preferred pharmacy and medication before forwarding?yes Pharmacy: [id number] [address] [place] Pending Prescriptions: Disp Refills Methocarbamol 500 MG Oral Tablet (Robamol)90 Tab*1 Sig: Take 1 tab by mouth three times per day as needed for back pain Last Visit: 07/24/2024 (in office), Visit date not found (telemedicine) Next Visit: Visit date not found If no future appointments scheduled, and last appointment is greater than a year ago, please schedule patient for a follow-up appointment Last date the medication was ordered: 07/26/24 Is this request for a controlled substance?No [...] 1:00 PM EST Cardiac Studies Cardiac Studies, [facility] [address] [place] [id number] 09/27/2024 11:00 AM EST Office Visit Hematology/Oncology [facility] [address] [place] [phone] Xavi Gramajo MD 200 [facility] [place] [address] 10/13/2024 11:20 AM EST Office Visit Neurology [facility] [address] [place] [address] Ellie Duncan MD 200 [facility] [place] [address] Health Maintenance Due Date Last Done Comments Albumin/Creatinine Ratio 1963 DTap/Tdap Vaccines (1 - Tdap) 1964 Adult Wellness Visit 02/01/2020 01/31/2019 CKD PHOS USE SMARTSET 87691 09/11/202408/17, 09/11/2023, 07/14/2021, Additional history exists COVID-19 Vaccine ( season) 2024 08/11/2024, 07/22/2022, 07/22/2022, Additional history exists Depression Screening 12/26/2024 12/27/2023 GFR 01/22/2025 07/24/2024, 03/17, 11/12/2023, Additional history exists CKD HGB USE SMARTSET 46884 07/24/202507/24, 07/24/2024, 04/12/2024, Additional history exists Pneumococcal [...] Power of Attor philipp? No Care Teams Counter Sales Person Relationship Specialty Start Date End Date Arnold Willis MD PCP - General Family Medicine 05/31/24 documented as of this encounter
--- OUTSIDE RECORDS SUMMARY | 2024-09-23 20:09 | External Medical Summary | Summary of Care ---
Author Name Unknown Organization [facility] Address [address] [place] [address] Phone [phone] Care Team Providers Care Health Services Rn Name Role Phone Chuy Batista MD Primary Care Provider +1- [phone] Reason for Visit * Reason Onset Date Comments Procedure 08/31/2024 Appointment 08/31/2024 Cystoscopy Encounter Details Date Type Department Care Team (Late st Contact Info) Description 08/31/2024 Telephone Urology, [place] [address] [place] [address] Ernesto Villareal MD [address] [place] [address] Procedure; Appointment (Cystoscopy ) Allergies [...] as of this encounter (statuses as of 09/08/2024) Medications Syringe/Needle, Disp, 25G X 1-1/2" 3 [...] Take 119 g by mouth once. Active [facility] Wound/Burn Dressing External GelIndications:Pr essure [...] as of this encounter (statuses as of 09/08/2024) Active Problems Problem Noted Date Diagnosed Date [...] as of this encounter (statuses as of 09/08/2024) Resolved Problems Problem Noted Date Diagnosed Date [...] as of this encounter (statuses as of 09/08/2024) Immunizations Name Administration Dates Next Due COVID-19 mRNA, LNP-s, No Pre serve, 2-Dose Series ([employer]) 05/30/2021,10/29/2020,10/08/2020 COVID-19, LNP-s, No Preserve , [...] No 12/27/2023 Does the household have a [facility] source of income? (Household - for [...] 09/12/2023 12:39 AM Elizabeth Marquze RN * Do you have serious difficulty [...] encounter Miscellaneous Notes * Telephone Encounter - Marylu Nair LPN - 09/08/2024 9:02 AM EST Vitaliy please call and offer next available at [facility] or they can reschedule with Dr Villareal * Telephone Encounter - Chuy Batista MD [...] that [place], [place], and nor[place]. She is absolutely not takinghim to the ER or out on major highway. She states Dr Prado's office did not call her when pt canceled Dr Villareal follow up. She was offered [place] and declined, was offered other ED options and declined all. Patient voiced her dissatisfaction numerous times on the phone. I apologized and explained Dr Prado is not in the [facility] office today or tomorrow, outside of the [...] joke, this is what we get for [facility]?" I told her our spares scheduler would be in contact to set up [...] not able to physically get patient to [place]. She is wanting cystoscopy to be scheduled in [facility]. states his catheter is leaking. Patient is [...] 1:00 PM EST Cardiac Studies Cardiac Studies, [facility] [address] [facility] [place] [address] 09/27/2024 11:00 AM EST Office Visit Hematology/Oncology [facility] [address] [place] [address] Xavi Gramajo MD 200 [facility] [place] [address] 10/13/2024 11:20 AM EST Office Visit Neurology [facility] [address] [place] [address] Ellie Duncan MD [address] [facility] [place] [address] Health Maintenance Due Date Last Done Comments Albumin/Creatinine Ratio 1963 DTap/Tdap Vaccines (1 - Tdap) 1964 Adult Wellness Visit 02/01/2020 01/31/2019 CKD PHOS USE SMARTSET 36141 09/11/202408/17, 09/11/2023, 07/14/2021, Additional history exists COVID-19 Vaccine ( season) 2024 08/11/2024, 07/22/2022, 07/22/2022, Additional history exists Depression Screening 12/26/2024 12/27/2023 GFR 01/22/2025 07/24/2024, 03/17, 11/12/2023, Additional history exists CKD HGB USE SMARTSET 34359 07/24/202507/24, 07/24/2024, 04/12/2024, Additional history exists Pneumococcal [...] Power of Attor philipp? No Care Teams Health Services Rn Relationship Specialty Start Date End Date Chuy Batista MD PCP - General Family Medicine 05/31/24 documented as of this encounter
--- OUTSIDE RECORDS SUMMARY | 2024-09-23 20:09 | External Medical Summary | Summary of Care ---
Author Name Unknown Organization [facility] Address [address] [place] [address] Phone [phone] Care Team Providers Care Firefighter Marine Name Role Phone Chuy Batista MD Primary Care Provider +1- [phone] Reason for Visit * Reason Onset Date Comments Procedure 08/31/2024 Appointment 08/31/2024 Cystoscopy Encounter Details Date Type Department Care Team (Late st Contact Info) Description 08/31/2024 Telephone Urology, [place] [address] [place] [address] Ernesto Villareal MD [address] [place] [address] Procedure; Appointment (Cystoscopy ) Allergies [...] Take 119 g by mouth once. Active [facility] Wound/Burn Dressing External GelIndications:Pr essure [...] mRNA, LNP-s, No Pre serve, 2-Dose Series ([employer]) 05/30/2021,10/29/2020,10/08/2020 COVID-19, LNP-s, No Preserve , Prosper-sucrose, [...] No 12/27/2023 Does the household have a [facility] source of income? (Household - [...] Telephone Encounter - Vitaliy Almendarez OSA - 09/08/2024 9:19 AM EST I attempted to contact patient's to schedule. I left message on the machine with number to call back to schedule next available appointment. * Telephone Encounter - Marylu Nair LPN - 09/08/2024 9:02 AM EST Vitaliy please call and offer next [facility] or they can reschedule with Dr [...] scheduled for office visit next available. Thanks, GALEN * Telephone Encounter - Kate Chakraborty LPN [...] Dr Villareal follow up. She was offered [place] and declined, was offered other ED options and declined all. Patient voiced her dissatisfaction numerous times on the phone. I apologized and explained Dr Prado is not in the [facility] office today or tomorrow, outside [...] joke, this is what we get for [facility]?" I told her our horseshoer would be in contact to set up his visit with Dr Prado, and she requested he be placed on the wait list. She then stated her dissatisfaction and said I better get off the phone before I say things I shouldn't and I disconnected the call. Routing to providers for further advise. Danny Love LPN * Telephone Encounter - Candis Mota OSA - 09/07/2024 3:41 PM EST Patient's states she is not able to physically get patient to [place]. She is wanting cystoscopy to be scheduled in [facility]. states his catheter is leaking. Patient [...] EST Cardiac Studies Cardiac Studies, [facility] [address] [facility] [place] [address] 09/27/2024 11:00 AM EST [facility] [place] [address] [place] [phone] Xavi Gramajo MD [address] [place] [address] 10/13/2024 11:20 AM EST Office Visit Neurology [facility] [place] [address] [place] [address] Ellie Duncan MD [address] [facility] [place] [address] Health Maintenance Due Date Last Done Comments Albumin/Creatinine Ratio 1963 DTap/Tdap Vaccines (1 - Tdap) 1964 Adult Wellness Visit 02/01/2020 01/31/2019 CKD PHOS USE SMARTSET 97405 09/11/202408/17, 09/11/2023, 07/14/2021, Additional history exists COVID-19 Vaccine ( season) 2024 08/11/2024, 07/22/2022, 07/22/2022, Additional history exists Depression Screening 12/26/2024 12/27/2023 GFR 01/22/2025 07/24/2024, 03/17, 11/12/2023, Additional history exists CKD HGB USE SMARTSET 61830 07/24/202507/24, 07/24/2024, 04/12/2024, Additional history exists Pneumococcal [...] Power of Attor philipp? No Care Teams Firefighter Marine Relationship Specialty Start Date End Date Chuy Batista MD PCP - General Family Medicine 05/31/24 documented as of this encounter
--- OUTSIDE RECORDS SUMMARY | 2024-09-23 20:09 | External Medical Summary | Summary of Care ---
Author Name Unknown Organization [facility] Address [address] [place] [address] Phone [phone] Care Team Providers Care Outreach Librarian Name Role Phone Chuy Batista MD Primary Care Provider +1- [phone] Reason for Visit * Reason Onset Date Comments Order Request 2024 Encounter Details Date Type Department Care Team (Late st Contact Info) Description [address] [facility] [place] [address] [facility] [place] [address] Chuy Batista MD [address] [place] [address] Order Request Allergies Active Allergy Reactions Criticality Noted Date [...] Telephone Encounter - Leesa Salazar LPN - 08/25/2024 10:04 AM EST Spoke with pt's and let her know the DME order for reclining lift chair is ready. She is goingto call back to let us know where she wants us to fax the order to. * Telephone Encounter - Deondre Hill MD - 08/24/2024 7:16 PM EST DME order placed. Can we please fax to desired supplier. May need further documentation and/or an office visit based on insurance requirements. Deondre Hill MD * Telephone Encounter - Deb Art OSA - 08/24/2024 3:18 PM EST Patients calling in to check on the status of previous message. Patient Called within 48 hour timeframe. Reminded patient of 48 hour turn-around time. * Telephone Encounter - Akosua Tovar LPN - 08/24/2024 6:52 AM EST Sent to [facility] * Telephone Encounter - Asia Keys OSA - 2024 4:58 PM EST Pt is calling asking for a script for a medical reclining lift chair so that medicare will payfor it. They would like to rent it. Please call pt back at [phone] pt would like this done [place] bc he is coming home from hospital tomorrow and pt will not be able to help pt get up and down documented in this encounter Plan of Treatment Upcoming Encounters Date Type Department Care Team (Late st Contact Info) Description 08/28/2024 11:00 AM EST Office Visit [facility] [address] [facility] [place] [phone] Chuy Batista MD [address] [facility] [address] 09/04/2024 1:00 PM EST Procedure Only Urology, [place] [address], [place] [phone] Ernesto Villareal MD [address], [place] [id number] 09/14/2024 1:00 PM EST Cardiac Studies Cardiac Studies, [facility] [address] [facility] [place] [address] 09/27/2024 11:00 AM EST Office Visit Hematology/Oncology [facility] 200 [facility] [place] [phone] Xavi Gramajo MD [address] [facility] [place] [address] 10/13/2024 11:20 AM EST Office Visit Neurology [facility] [address] [facility] [place] [address] Ellie Duncan MD 200 [facility] [place] [address] Health Maintenance Due Date Last Done Comments Albumin/Creatinine Ratio 1963 DTap/Tdap Vaccines (1 - Tdap) 1964 Adult Wellness Visit 02/01/2020 01/31/2019 COVID-19 Vaccine ( season) 2024 07/22/2022, 07/22/2022, 02/11/2022, Additional history exists CKD PHOS USE SMARTSET 10536 09/11/202408/17, 09/11/2023, 07/14/2021, Additional history exists Depression Screening 12/26/2024 12/27/2023 GFR 01/22/2025 07/24/2024, 03/17, 11/12/2023, Additional history exists CKD HGB USE SMARTSET 54904 07/24/202507/24, 07/24/2024, 04/12/2024, Additional history exists Pneumococcal [...] as of this encounter Visit Diagnoses Diagnosis Impaired mobility and ADLs- Primary Mechanical problems with limbs Urothelial carcinoma of bladder (HCC) Malnutrition of moderate degree (HCC) Malnutrition of moderate degree documented in this encounter Advance Directives * [...] Power of Attor philipp? No Care Teams Outreach Librarian Relationship Specialty Start Date End Date Oesterling, Chuy R, MD PCP - General Family Medicine 05/31/24 documented as of this encounter
--- OUTSIDE RECORDS SUMMARY | 2024-09-23 20:09 | External Medical Summary | Summary of Care ---
Author Name Unknown Organization [facility] Address [address] [place] [address] Phone [phone] Care Team Providers Care Housing Quality Standard Inspector Name Role Phone Chuy Batista MD Primary Care Provider +1- [phone] Reason for Visit * Reason Onset Date Comments Order Request 2024 Encounter Details Date Type Department Care Team (Late st Contact Info) Description 2024 Telephone [facility] Amanda Singh [address] [facility] [place] [address] Chuy Batista MD 226 [place] [address] Order Request Allergies Active Allergy Reactions Criticality Noted Date Comments Chocolate Diarrhea 05/14/2023 Chocolate Flavoring Agent (Non-Screening) High 10/09/2023 Other Reaction(s): DIARRHEA/ Cannot take, interacts w/ medications. Clindamycin Hcl 09/24/2005 rash Cranberry 10/20/2023 Iodinated Contrast Media 10/01/2015 Ioversol Other (Please comment) High 08/10/[address] IV DYE Pembrolizumab High 10/10/2023 Other Reaction(s): myocarditis documented as of this encounter (statuses as of 08/24/2024) Medications Syringe/Needle, Disp, 25G X 1-1/2" 3 [...] as of this encounter (statuses as of 08/24/2024) Active Problems Problem Noted Date Diagnosed Date [...] as of this encounter (statuses as of 08/24/2024) Resolved Problems Problem Noted Date Diagnosed Date [...] as of this encounter (statuses as of 08/24/2024) Immunizations Name Administration Dates Next Due COVID-19 [...] turn-around time. * Telephone Encounter - Akosua Tovra LPN - 08/24/2024 6:52 AM EST Sent to correct clinic * Telephone Encounter - Asia Keys OSA - 2024 4:58 PM EST Pt is calling asking for a script for a medical reclining lift chair so that medicare will payfor it. They would like to rent it. Please call pt back at [phone] pt would like this done quincy bc he is coming home from hospital tomorrow and pt will not be able to help pt get up and down documented in this encounter Plan of Treatment Upcoming Encounters Date Type Department Care Team (Late st Contact Info) Description 08/28/2024 11:00 AM EST Office Visit [facility] 226 [place] [address] Chuy Batista MD [address] [place] [address] 09/04/2024 1:00 PM EST Procedure Only Urology, [place] [address] [place] [address] Ernesto Villareal MD [address] [place] [address] 09/14/2024 1:00 PM EST Cardiac Studies Cardiac Studies, [facility] [address] [place] [address] 09/27/2024 11:00 AM EST Office Visit Hematology/Oncology [facility] [address] [place] [phone] Xavi Gramajo MD 200 [place] [address] 10/13/2024 11:20 AM EST Office Visit Neurology [facility] [address] [place] [address] Ellie Duncan MD 200 [place] [address] Health Maintenance Due Date Last Done Comments Albumin/Creatinine Ratio 1963 DTap/Tdap Vaccines (1 - Tdap) 1964 Adult Wellness Visit 02/01/2020 01/31/2019 COVID-19 Vaccine ( season) 2024 07/22/2022, 07/22/2022, 02/11/2022, Additional history exists CKD PHOS USE SMARTSET 37503 09/11/202408/17, 09/11/2023, 07/14/2021, Additional history exists Depression Screening 12/26/2024 12/27/2023 GFR 01/22/2025 07/24/2024, 03/17, 11/12/2023, Additional history exists CKD HGB USE SMARTSET 19069 07/24/202507/24, 07/24/2024, 04/12/2024, Additional history exists Pneumococcal [...] Power of Attor philipp? No Care Teams Housing Quality Standard Inspector Relationship Specialty Start Date End Date Chuy Batista MD PCP - General Family Medicine 05/31/24 documented as of this encounter
--- OUTSIDE RECORDS SUMMARY | 2024-09-23 20:09 | External Medical Summary | Summary of Care ---
Author Name Unknown Organization [facility] Address [address] [place] [address] Phone [phone] Care Team Providers Care Grocery Clerk Name Role Phone Chuy Batista MD Primary Care Provider +1- [phone] Encounter Details Date Type Department Care Team (Late st Contact Info) Description 08/30/[address] [address] [place] [address] Chuy Batista MD 226 [facility] [place] [phone] Allergies Active Allergy Reactions Criticality Noted Date [...] Take 119 g by mouth once. Active [facility] Wound/Burn Dressing External GelIndications:Pr essure injury [...] mRNA, LNP-s, No Pre serve, 2-Dose Series ([employer]) 05/30/2021,10/29/2020,10/08/2020 COVID-19, LNP-s, No Preserve , Prosper-sucrose, [...] No 12/27/2023 Does the household have a [facility] general hospitallar source of income? (Household - [...] Encounter - Chuy Batista MD - 09/07/2024 9:41 PM EST That is fine with me - they can send an order to sign. I was not aware that would be covered by insurance. * Telephone Encounter - Amanda Rodriguez OSA - 08/30/2024 1:17 PM EST Lata Patino calling form [facility] home health is calling in about patient had asked if an order can be placed so that a nurses aide can come to the home and assist with bathing. Please advise Amanda Morris documented in this encounter Plan of Treatment Upcoming Encounters Date Type Department Care Team (Late st Contact Info) Description 09/14/2024 1:00 PM EST Cardiac Studies Cardiac Studies, [facility] 132 [facility] [place] [address] 09/27/2024 11:00 AM EST Office Visit Hematology/Oncology [facility] [place] [address] [place] [address] Xavi Gramajo MD [address] [place] [address] 10/13/2024 11:20 AM EST Office Visit [facility] [address] [place] [address] Ellie Duncan MD [address] [place] [address] Health Maintenance Due Date Last Done Comments Albumin/Creatinine Ratio 1963 DTap/Tdap Vaccines (1 - Tdap) 1964 Adult Wellness Visit 02/01/2020 01/31/2019 CKD PHOS USE SMARTSET 24771 09/11/202408/17, 09/11/2023, 07/14/2021, Additional history exists COVID-19 Vaccine ( season) 2024 08/11/2024, 07/22/2022, 07/22/2022, Additional history exists Depression Screening 12/26/2024 12/27/2023 GFR 01/22/2025 07/24/2024, 03/17, 11/12/2023, Additional history exists CKD HGB USE SMARTSET 64304 07/24/202507/24, 07/24/2024, 04/12/2024, Additional history exists Pneumococcal [...] Power of Attor philipp? No Care Teams Grocery Clerk Relationship Specialty Start Date End Date Chuy Batista MD PCP - General Family Medicine 05/31/24 documented as of this encounter
--- OUTSIDE RECORDS SUMMARY | 2024-09-23 20:10 | External Medical Summary | Summary of Care ---
Author Name Unknown Organization [facility] Address [address] [facility] [place] [address] Phone [phone] Care Team Providers Care Grating Machine Operator Name Role Phone Chuy Batista MD Primary Care Provider +1- [phone] Reason for Visit * Reason Onset Date Comments Appointment Canceled 2024 Encounter Details Date Type Department Care Team (Late st Contact Info) Description 2024 Telephone Hematology/Oncology [facility] Arleen [place] [address] [place] [address] Xavi Isaac MD [address] [place] [address] Appointment Canceled Allergies Active Allergy Reactions Criticality Noted Date Comments Chocolate Diarrhea 05/14/2023 Chocolate Flavoring Agent (Non-Screening) High 10/09/2023 Other Reaction(s): DIARRHEA/ Cannot take, interacts w/ medications. Clindamycin Hcl 09/24/2005 rash Cranberry 10/20/2023 Iodinated Contrast Media 10/01/2015 Ioversol Other (Please comment) High 08/10/[address] IV DYE Pembrolizumab High 10/10/2023 Other Reaction(s): myocarditis documented as of this encounter (statuses as of 2024) Medications Syringe/Needle, Disp, 25G X 1-1/2" 3 [...] as of this encounter (statuses as of 2024) Active Problems Problem Noted Date Diagnosed Date [...] as of this encounter (statuses as of 2024) Resolved Problems Problem Noted Date Diagnosed Date [...] as of this encounter (statuses as of 2024) Immunizations Name Administration Dates Next Due COVID-19 mRNA, LNP-s, No Pre serve, 2-Dose Series (Reactivity) 05/30/2021,10/29/2020,10/08/2020 COVID-19, LNP-s, No Preserve , Prosper-sucrose, [...] Telephone Encounter - Des Mathew RN - 2024 9:41 AM EST Pt is inpatient, can be discussed with Dr. Isaac at next office visit once discharged. * Telephone Encounter - Suha Oliva OSA - 2024 9:29 AM EST Called patient to move appt from Dr isaac to Lorna CRUZ on 08/24/24- spoke to who informed me that patient is currently in patient at [facility] with pneumonia and flu - would wait to reschedule this VIDEO FROM HOME - until patient is discharged from hospital. wanted to know if Dr Isaac would order a PET CT for patient. Told patient that I would send message to nurses to discuss with Dr Isaac and would reach back to her. FYI - nursing documented in this encounter Plan of Treatment Upcoming Encounters Date Type Department Care Team (Late st Contact Info) Description 08/28/2024 3:00 PM EST Office Visit [facility] [address] [place] [phone] Chuy Batista MD 226 [facility] [place] [address] 09/04/2024 1:00 PM EST Procedure Only Urology, [place] [address] [place] [address] Ernesto Villareal MD [address] [place] [address] 09/14/2024 1:00 PM EST Cardiac Studies Cardiac Studies, [facility] 132 [address] Singh [place] [address] 10/13/2024 11:20 AM EST Office Visit Neurology [facility] 200 [facility] [place] [address] Ellie Duncan MD 200 [facility] [place] [address] Health Maintenance Due Date Last Done Comments Albumin/Creatinine Ratio 1963 DTap/Tdap Vaccines (1 - Tdap) 1964 Adult Wellness Visit 02/01/2020 01/31/2019 COVID-19 Vaccine ( season) 2024 07/22/2022, 07/22/2022, 02/11/2022, Additional history exists CKD PHOS USE SMARTSET 25736 09/11/202408/17, 09/11/2023, 07/14/2021, Additional history exists Depression Screening 12/26/2024 12/27/2023 GFR 01/22/2025 07/24/2024, 03/17, 11/12/2023, Additional history exists CKD HGB USE SMARTSET 63547 07/24/202507/24, 07/24/2024, 04/12/2024, Additional history exists Pneumococcal [...] Power of Attor philipp? No Care Teams Grating Machine Operator Relationship Specialty Start Date End Date Chuy Batista MD PCP - General Family Medicine 05/31/24 documented as of this encounter
--- OUTSIDE RECORDS SUMMARY | 2024-09-23 20:10 | External Medical Summary | Summary of Care ---
Author Name Unknown Organization [facility] Address [address] [place] [address] Phone [phone] Care Team Providers Care Prison Keeper Name Role Phone Chuy Batista MD Primary Care Provider +1- [phone] Reason for Visit * Reason Onset Date Comments Hospital Follow-Up 08/24/2024 Encounter Details Date Type Department Care Team (Late st Contact Info) Description 08/24[facility]2024 [facility] [address] [facility] [place] [address] Chuy Batista MD 226 [facility] [place] [address] Hospital Follow-Up Allergies Active Allergy Reactions Criticality Noted Date [...] Oral Capsule Take by mouth. Activ e Tab-A-Ikka Oral Tablet Take 1 Tablet by mouth [...] encounter Miscellaneous Notes * Telephone Encounter - Deb Art OSA - 08/24/2024 3:17 PM EST Pts returned the phone call. Appt was scheduled. * Telephone Encounter - Ania Neal OSA - 08/24/2024 10:41 AM EST LMOM to schedule. 08/24/2024 * Telephone Encounter - Eulalia Duncan RN - 08/24/2024 8:45 AM EST Discharged from [facility] 08/24/24: Follow-up with your primary care physician within a week time and likely you will need labs CBC/CMP/magnesium/phosphorus. You will be discharged on Tamiflu to complete the course for influenza A upper respiratory tract infection. You will be discharged on antibiotic to complete the course for UTI. During your PCP visit within 3to 5 days time upon discharge, you will need to follow-up on final sensitivity results on the urineculture results to make sure that you are being appropriately treated with antibiotic. documented in this encounter Plan of Treatment Upcoming Encounters Date Type Department Care Team (Late st Contact Info) Description 08/28/2024 11:00 AM EST Office Visit [facility] Valarie Lam [address] [place] [address] Chuy Batista MD [address] [place] [address] 09/04/2024 1:00 PM EST Procedure Only Urology, [place] [address] [facility] [place] [address] Ernesto Villareal MD [address] [facility] [place] [address] 09/14/2024 1:00 PM EST Cardiac Studies Cardiac Studies, [facility] 132 [facility] [place] [address] 10/13/2024 11:20 AM EST Office Visit Neurology [facility] 200 [place] [address] Ellie Duncan MD [facility] [address] Health Maintenance Due Date Last Done Comments Albumin/Creatinine Ratio 1963 DTap/Tdap Vaccines (1 - Tdap) 1964 Adult Wellness Visit 02/01/2020 01/31/2019 COVID-19 Vaccine ( season) 2024 07/22/2022, 07/22/2022, 02/11/2022, Additional history exists CKD PHOS USE SMARTSET 77473 09/11/202408/17, 09/11/2023, 07/14/2021, Additional history exists Depression Screening 12/26/2024 12/27/2023 GFR 01/22/2025 07/24/2024, 03/17, 11/12/2023, Additional history exists CKD HGB USE SMARTSET 11535 07/24/202507/24, 07/24/2024, 04/12/2024, Additional history exists Pneumococcal [...] Power of Attor philipp? No Care Teams Prison Keeper Relationship Specialty Start Date End Date Chuy Batista MD PCP - General Family Medicine 05/31/24 documented as of this encounter
--- OUTSIDE RECORDS SUMMARY | 2024-09-23 20:10 | External Medical Summary | Summary of Care ---
Author Name Unknown Organization [facility] Address [address] [place] [address] Phone [phone] Care Team Providers Care Fire Protection Designer Name Role Phone Chuy Batista MD Primary Care Provider +1- [phone] Reason for Visit * Reason Onset Date Comments Nurse Documentation 2024 Encounter Details Date Type Department Care Team (Late st Contact Info) Description 2024 Telephone [facility] Amanda Singh [address] [facility] [place] [address] Chuy Batista MD 226 [facility] [place] [address] Nurse Documentation Allergies Active Allergy Reactions Criticality [...] Encounter - Edie Kumar MED ASSIST - 2024 11:08 AM EST Received Fax for BFPROVIDERS: Dr. Chuy Batista ORDER received from [facility] and FAXED documented in this encounter Plan of Treatment Upcoming Encounters Date Type Department Care Team (Late st Contact Info) Description 08/28/2024 3:00 PM EST Office Visit [facility] [address] [place] [address] Chuy Batista MD [address] [place] [address] 09/04/2024 1:00 PM EST Procedure Only Urology, [place] [address] [place] [address] Ernesto Villareal MD [address] [place] [address] 09/14/2024 1:00 PM EST Cardiac Studies Cardiac Studies, [facility] 132 [facility] [place] [address] 10/13/2024 11:20 AM EST Office Visit [facility] 200 [facility] [place] [address] Ellie Duncan MD 200 [facility] [place] [address] Health Maintenance Due Date Last Done Comments Albumin/Creatinine Ratio 1963 DTap/Tdap Vaccines (1 - Tdap) 1964 Adult Wellness Visit 02/01/2020 01/31/2019 COVID-19 Vaccine ( season) 2024 07/22/2022, 07/22/2022, 02/11/2022, Additional history exists CKD PHOS USE SMARTSET 97455 09/11/202408/17, 09/11/2023, 07/14/2021, Additional history exists Depression Screening 12/26/2024 12/27/2023 GFR 01/22/2025 07/24/2024, 03/17, 11/12/2023, Additional history exists CKD HGB USE SMARTSET 14015 07/24/202507/24, 07/24/2024, 04/12/2024, Additional history exists Pneumococcal [...] Power of Attor philipp? No Care Teams Fire Protection Designer Relationship Specialty Start Date End Date Chuy Batista MD PCP - General Family Medicine 05/31/24 documented as of this encounter
--- OUTSIDE RECORDS SUMMARY | 2024-09-23 20:10 | External Medical Summary | Summary of Care ---
Author Name Unknown Organization [facility] Address [address] [facility] [place] [address] Phone [phone] Care Team Providers Care Leather Piece Inspector Name Role Phone Chuy Batista MD Primary Care Provider +1- [phone] Reason for Visit * Reason Onset Date Comments Appointment Canceled 2024 Encounter Details Date Type Department Care Team (Late st Contact Info) Description 2024 Telephone Hematology/Oncology [facility] Arleen [place] [address] [place] [address] Xavi Isaac MD [address] [place] [address] Appointment Canceled Allergies Active Allergy Reactions Criticality [...] mRNA, LNP-s, No Pre serve, 2-Dose Series ([employer]) 05/30/2021,10/29/2020,10/08/2020 COVID-19, LNP-s, No Preserve , Prosper-sucrose, [...] that patient is currently in patient at [facility] with pneumonia and flu - would wait [...] Description 08/28/2024 3:00 PM EST Office Visit [facility]Note 3[facility] [address] [place] [phone] Chuy Batista MD 226 [facility] [place] [address] 09/04/2024 1:00 PM EST Procedure Only Urology, [place] [address] [place] [address] Ernesto Villareal MD [address] [place] [address] 09/14/2024 1:00 PM EST Cardiac Studies Cardiac Studies, [facility] 132 Alissa Singh [place] [address] 10/13/2024 11:20 AM EST Office Visit Neurology [facility] 200 [facility] [place] [address] Ellie Duncan MD 200 [facility] [place] [address] Health Maintenance Due Date Last Done Comments Albumin/Creatinine Ratio 1963 DTap/Tdap Vaccines (1 - Tdap) 1964 Adult Wellness Visit 02/01/2020 01/31/2019 COVID-19 Vaccine ( season) 2024 07/22/2022, 07/22/2022, 02/11/2022, Additional history exists CKD PHOS USE SMARTSET 27691 09/11/202408/17, 09/11/2023, 07/14/2021, Additional history exists Depression Screening 12/26/2024 12/27/2023 GFR 01/22/2025 07/24/2024, 03/17, 11/12/2023, Additional history exists CKD HGB USE SMARTSET 80017 07/24/202507/24, 07/24/2024, 04/12/2024, Additional history exists Pneumococcal [...] of Attor philipp? No Care Teams Leather Piece Inspector Relationship Specialty Start Date End Date Chuy Batista MD PCP - General Family Medicine 05/31/24 documented as of this encounter
--- OUTSIDE RECORDS SUMMARY | 2024-09-23 20:10 | External Medical Summary | Summary of Care ---
Author Name Unknown Organization [facility] Address [address] [place] [address] Phone [phone] Care Team Providers Care Agricultural And Forestry Supervisor Name Role Phone Chuy Batista MD Primary Care Provider +1- [phone] Reason for Visit * Reason Onset Date Comments Appointment 08/24/2024 Encounter Details Date Type Department Care Team (Late st Contact Info) Description 08/24/2024 Telephone Hematology/Oncology [facility] Ar[place] 200 [facility] [place] [address] Xavi Gramajo MD 200 [facility] [address] Appointment Allergies Active Allergy Reactions Criticality Noted [...] mRNA, LNP-s, No Pre serve, 2-Dose Series ([employer]) 05/30/2021,10/29/2020,10/08/2020 COVID-19, LNP-s, No Preserve , [...] Telephone Encounter - Des Mathew RN - 08/24/2024 3:05 PM EST Pt discharged today from [facility]. Scheduling- please call patient to reschedule follow up in office with PROPERTY ASSISTANT or Dr. Gramajo. Thank you. documented in this encounter Plan of Treatment Upcoming Encounters Date Type Department Care Team (Late st Contact Info) Description 08/28/2024 11:00 AM EST Office Visit [facility] [address] [place] [address] Chuy Batista MD [address] [place] [address] 09/04/2024 1:00 PM EST Procedure Only Urology, [place] [address] [place] [address] Ernesto Villareal MD [address] [place] [address] 09/14/2024 1:00 PM EST Cardiac Studies Cardiac Studies, [facility] 132 [facility] [place] [address] 09/27/2024 11:00 AM EST Office Visit Hematology/Oncology [facility] 200 [facility] [place] [phone] Xavi Gramajo MD 200 [facility] [place] [address] 10/13/2024 11:20 AM EST Office Visit Neurology [facility] 200 [facility] [place] [address] Ellie Duncan MD 200 [facility] [address] Health Maintenance Due Date Last Done Comments Albumin/Creatinine Ratio 1963 DTap/Tdap Vaccines (1 - Tdap) 1964 Adult Wellness Visit 02/01/2020 01/31/2019 COVID-19 Vaccine ( season) 2024 07/22/2022, 07/22/2022, 02/11/2022, Additional history exists CKD PHOS USE SMARTSET 07055 09/11/202408/17, 09/11/2023, 07/14/2021, Additional history exists Depression Screening 12/26/2024 12/27/2023 GFR 01/22/2025 07/24/2024, 03/17, 11/12/2023, Additional history exists CKD HGB USE SMARTSET 79642 07/24/202507/24, 07/24/2024, 04/12/2024, Additional history exists Pneumococcal [...] Power of Attor philipp? No Care Teams Agricultural And Forestry Supervisor Relationship Specialty Start Date End Date Chuy Batista MD PCP - General Family Medicine 05/31/24 documented as of this encounter
--- OUTSIDE RECORDS SUMMARY | 2024-09-23 20:10 | External Medical Summary | Summary of Care ---
Author Name Unknown Organization [facility] Address [address] [place] [address] Phone [phone] Care Team Providers Care Stamp Redemption Clerk Name Role Phone Chuy Batista MD Primary Care Provider +1- [phone] Reason for Visit * Reason Onset Date Comments Advice 08/21/2024 Encounter Details Date Type Department Care Team (Late st Contact Info) Description 08/21/2024 [facility]phone [facility] [address] [place] [address] Chuy Batista MD [address] [facility] [place] [address] Advice Allergies Active Allergy Reactions Criticality Noted [...] Take 119 g by mouth once. Active [facility] Dressing External GelIndications:Pr essure injury [...] mRNA, LNP-s, No Pre serve, 2-Dose Series ([employer]) 05/30/2021,10/29/2020,10/08/2020 COVID-19, LNP-s, No Preserve , Prosper-sucrose, [...] Telephone Encounter - Leesa Salazar LPN - 2024 1:56 PM EST Spoke with pt's regarding message below. Pt's stated her is in the hospital now. * Telephone Encounter - Deondre Hill MD - 08/22/2024 4:58 PM EST Only option at this point is to request transport to the emergency room for further evaluation if she feels this is most appropriate. Deondre Hill MD * Telephone Encounter - Ashely Hanson LPN - 08/21/2024 11:04 AM EST Patient is [place] [facility] and spouse says he is going down hill and he is not eating and drinking kota a Z pack due to URI; They are not able to do an xray there it takes 3 days for results for that and she thinks he needs to be seen in the ER. She would like to know what she is to due. They are not able to push fluids and the provider there was talking to her about hospice and she is very upset about all of this and does not know where this is coming from. She would like a PET scan as well to see if anything. * Telephone Encounter - Memo Tolliver OSA - 08/21/2024 10:57 AM EST Patient calling requesting to speak to a nurse regarding care at skilled facility thinks he's need to return to the hospital. documented in this encounter Plan of Treatment Upcoming Encounters Date Type Department Care Team (Late st Contact Info) Description 08/28/2024 3:00 PM EST [facility] [address] [place] [phone] Chuy Batista MD [address] [place] [address] 09/04/2024 1:00 PM EST Procedure Only Urology, [place] [address], [place] [id number] Ernesto Villareal MD [address] [place] [address] 09/14/2024 1:00 PM EST Cardiac Studies Cardiac Studies, [facility] [address] [place] [address] 10/13/2024 11:20 AM EST Office Visit Neurology [facility] [address] [place] [address] Ellie Duncan MD [address] [place] [address] Health Maintenance Due Date Last Done Comments Albumin/Creatinine Ratio 1963 DTap/Tdap Vaccines (1 - Tdap) 1964 Adult Wellness Visit 02/01/2020 01/31/2019 COVID-19 Vaccine ( season) 2024 07/22/2022, 07/22/2022, 02/11/2022, Additional history exists CKD PHOS USE SMARTSET 82885 09/11/202408/17, 09/11/2023, 07/14/2021, Additional history exists Depression Screening 12/26/2024 12/27/2023 GFR 01/22/2025 07/24/2024, 03/17, 11/12/2023, Additional history exists CKD HGB USE SMARTSET 54798 07/24/202507/24, 07/24/2024, 04/12/2024, Additional history exists Pneumococcal [...] Power of Attor philipp? No Care Teams Stamp Redemption Clerk Relationship Specialty Start Date End Date Chuy Batista MD PCP - General Family Medicine 05/31/24 documented as of this encounter
--- OUTSIDE RECORDS SUMMARY | 2024-09-23 20:10 | External Medical Summary | Summary of Care ---
Author Name Unknown Organization [facility] Address [address] [facility] [place] [address] Phone [phone] Care Team Providers Care Extraction Operator Name Role Phone Chuy Batista MD Primary Care Provider +1- [phone] Reason for Visit * Reason Onset Date Comments Hospital Follow-Up 08/24/2024 Encounter Details Date Type Department Care Team (Late st Contact Info) Description 08/24/2024 [facility]phone [facility] [address] [facility] [place] [address] Chuy Batista MD [address] [facility] [place] [address] Hospital Follow-Up Allergies Active Allergy Reactions Criticality [...] - 08/24/2024 8:45 AM EST Discharged from [facility] 08/24/24: Follow-up with your primary care physician [...] Description 08/28/2024 3:00 PM EST Office Visit [facility] [address] [place] [phone] Chuy Batista MD [address] [facility] [place] [address] 09/04/2024 1:00 PM EST Procedure Only Urology, [place] [address] [place] [address] Ernesto Villareal MD [address] [place] [address] 09/14/2024 1:00 PM EST Cardiac Studies Cardiac Studies, [facility] [address] [place] [address] 10/13/2024 11:20 AM EST Office Visit Neurology [facility] [address] [facility] [place] [address] Ellie Duncan MD [address] [facility] [place] [address] Health Maintenance Due Date Last Done Comments Albumin/Creatinine Ratio 1963 DTap/Tdap Vaccines (1 - Tdap) 1964 Adult Wellness Visit 02/01/2020 01/31/2019 COVID-19 Vaccine ( season) 2024 07/22/2022, 07/22/2022, 02/11/2022, Additional history exists CKD PHOS USE SMARTSET 45935 09/11/202408/17, 09/11/2023, 07/14/2021, Additional history exists Depression Screening 12/26/2024 12/27/2023 GFR 01/22/2025 07/24/2024, 03/17, 11/12/2023, Additional history exists CKD HGB USE SMARTSET 00038 07/24/202507/24, 07/24/2024, 04/12/2024, Additional history exists Pneumococcal [...] Power of Attor philipp? No Care Teams Extraction Operator Relationship Specialty Start Date End Date Chuy Batista MD PCP - General Family Medicine 05/31/24 documented as of this encounter
--- OUTSIDE RECORDS SUMMARY | 2024-09-23 20:10 | External Medical Summary | Summary of Care ---
Author Name Unknown Organization [facility] Address [address] [place] [facility] [place] [address] Phone [phone] Care Team Providers Care Celluloid Trimmer Name Role Phone Chuy Batista MD Primary Care Provider +1- [phone] Reason for Visit * Reason Onset Date Comments Appointment 08/24/2024 Encounter Details Date Type Department Care Team (Late st Contact Info) Description 08/24/2024 Telephone Hematology/Oncology [facility] [place] [address] [facility] [place] [address] Xavi Isaac MD [address] [facility] [address] Appointment Allergies Active Allergy Reactions Criticality Noted [...] mRNA, LNP-s, No Pre serve, 2-Dose Series ([employer]) 05/30/2021,10/29/2020,10/08/2020 COVID-19, LNP-s, No Preserve , [...] Telephone Encounter - Danuta Schneider OSA - 08/24/2024 3:33 PM EST Called attempted to schedule with client services associate Pt and declined only wanted Dr isaac Asked nursing if next cody was ok they stated yes Pt was scheduled for 09/26 They were aware if they would like a sooner apt to call in and we could schedule with the KNOCKOUT WORKER * Telephone Encounter - Des Mathew RN - 08/24/2024 3:05 PM EST Pt discharged today from [facility]. Scheduling- please call patient to reschedule follow up in office with MEDICAL CASE WORKER or Dr. Isaac. Thank you. documented in this encounter Plan of Treatment Upcoming Encounters Date Type Department Care Team (Late st Contact Info) Description 08/28/2024 11:00 AM EST Office Visit [facility] [address] [place] [phone] Chuy Batista MD [address] [place] [address] 09/04/2024 1:00 PM EST Procedure Only [facility], [place] [address] [facility] [address] Ernesto Villareal [facility] [address] [facility] [place] [address] 09/14/2024 1:00 PM EST Cardiac Studies Cardiac Studies, [facility] [address] [facility] [place] [address] 09/27/2024 11:00 AM EST Office Visit Hematology/Oncology [facility] [place] [address] [facility] [place], [place] [address] Xavi Isaac MD 200 [facility] [place] [address] 10/13/2024 11:20 AM EST Office Visit Neurology [facility] [place] [address] [facility] [place] [address] Ellie Duncan MD 200 [facility] [place] [address] Health Maintenance Due Date Last Done Comments Albumin/Creatinine Ratio 1963 DTap/Tdap Vaccines (1 - Tdap) 1964 Adult Wellness Visit 02/01/2020 01/31/2019 COVID-19 Vaccine ( season) 2024 07/22/2022, 07/22/2022, 02/11/2022, Additional history exists CKD PHOS USE SMARTSET 60473 09/11/202408/17, 09/11/2023, 07/14/2021, Additional history exists Depression Screening 12/26/2024 12/27/2023 GFR 01/22/2025 07/24/2024, 03/17, 11/12/2023, Additional history exists CKD HGB USE SMARTSET 59157 07/24/202507/24, 07/24/2024, 04/12/2024, Additional history exists Pneumococcal [...] Power of Attor philipp? No Care Teams Celluloid Trimmer Relationship Specialty Start Date End Date Chuy Batista MD PCP - General Family Medicine 05/31/24 documented as of this encounter
--- OUTSIDE RECORDS SUMMARY | 2024-09-23 20:10 | External Medical Summary | Summary of Care ---
Author Name Unknown Organization [facility] Address [address] [facility] [place] [address] Phone [phone] Care Team Providers Care Air Intelligence Officer Name Role Phone Chuy Batista MD Primary Care Provider +1- [phone] Reason for Visit * Reason Onset Date Comments Hospital Follow-Up 08/24/2024 Encounter Details Date Type Department Care Team (Late st Contact Info) Description 08/24/2024 [facility]phone [facility] [address] [facility] [place] [address] Chuy Batista MD [address] [facility] [place] [address] Hospital Follow-Up Allergies Active Allergy Reactions Criticality [...] - 08/24/2024 8:45 AM EST Discharged from [facility] 08/24/24: Follow-up with your primary care physician [...] Description 08/28/2024 3:00 PM EST Office Visit [facility] [address] [place] [phone] Chuy Batista MD [address] [facility] [place] [address] 09/04/2024 1:00 PM EST Procedure Only Urology, [place] [address] [place] [address] Ernesto Villareal MD [address] [place] [address] 09/14/2024 1:00 PM EST Cardiac Studies Cardiac Studies, [facility] [address] [place] [address] 10/13/2024 11:20 AM EST Office Visit Neurology [facility] [address] [place] [address] Ellie Duncan MD [address] [place] [address] Health Maintenance Due Date Last Done Comments Albumin/Creatinine Ratio 1963 DTap/Tdap Vaccines (1 - Tdap) 1964 Adult Wellness Visit 02/01/2020 01/31/2019 COVID-19 Vaccine ( season) 2024 07/22/2022, 07/22/2022, 02/11/2022, Additional history exists CKD PHOS USE SMARTSET 46861 09/11/202408/17, 09/11/2023, 07/14/2021, Additional history exists Depression Screening 12/26/2024 12/27/2023 GFR 01/22/2025 07/24/2024, 03/17, 11/12/2023, Additional history exists CKD HGB USE SMARTSET 17308 07/24/202507/24, 07/24/2024, 04/12/2024, Additional history exists Pneumococcal [...] Power of Attor philipp? No Care Teams Air Intelligence Officer Relationship Specialty Start Date End Date Chuy Batista MD PCP - General Family Medicine 05/31/24 documented as of this encounter
[2024-09-23 21:10] LABS: Albumin Globulin Ratio 1.1 (0.9-2); Albumin Level 3.6 gm/dl (3.4-5.0); BUN Creatinine Ratio 18.8 (10-20); Bilirubin,Total 0.3 mg/dl (0.2-1.0); Calcium 9.1 mg/dl (8.6-10.3); Globulin 3.4 gm/dl (2.5-4.0); Magnesium 1.9 mg/dl (1.7-2.4); Potassium 3.8 mmol/L (3.5-5.1)
[2024-09-23 21:14] LABS: Basophils # (auto) 0.03 K/uL (0.00-0.20); Basophils % (auto) 0.3 %; Eosinophils # (auto) 0.07 K/uL (0.00-0.50); Eosinophils % (auto) 0.8 %; Immature Granulocytes # (auto) 0.05 K/uL (0.01-0.20); Immature Granulocytes % (auto) 0.6 %; Lymphocytes # (auto) 2.04 K/uL (1.20-3.40); Lymphocytes % (auto) 22.7 %; Mean Corpuscular Hemoglobin 28.1 pg (25.0-34.0); Mean Corpuscular Hgb Conc 32.4 g/dL (32.0-36.0); Mean Corpuscular Volume 86.7 fL (80.0-100.0); Mean Platelet Volume 9.2 fL (9.4-12.4); Monocytes # (auto) 0.66 K/uL (0.11-0.59); Monocytes % (auto) 7.3 %; Neutrophils # (auto) 6.14 K/uL (1.40-6.50); Neutrophils % (auto) 68.3 %; Platelet Count 324 K/uL (130-400); RDW Coefficient of Variation 17.2 % (11.5-14.5); RDW Standard Deviation 54.5 fL (36.4-46.3); Red Blood Count 4.27 M/uL (4.70-6.10); White Blood Count 8.99 K/ul (4.8-10.8)
[2024-09-23 21:16] LABS: Troponin I High Sensitivity 4.7 pg/ml (0-20)
[2024-09-23 21:24] LABS: Prothrombin Time 10.9 Seconds (9.0-12.0)
[2024-09-23 21:54] LABS: Adenovirus PCR Not Detected (NotDetected); Bordetella parapertussis PCR Not Detected (NotDetected); Bordetella pertussis PCR Not Detected (NotDetected); Chlamydia pneumoniae PCR Not Detected (NotDetected); Coronavirus 229E PCR Not Detected (NotDetected); Coronavirus CoV-2 (COVID19)PCR Not Detected (NotDetected); Coronavirus HKU1 PCR Not Detected (NotDetected); Coronavirus NL63 PCR Not Detected (NotDetected); Coronavirus OC43PCR Not Detected (NotDetected); Human Metapneumovirus PCR Not Detected (NotDetected); Influenza A PCR Not Detected (NotDetected); Influenza B PCR Not Detected (NotDetected); Mycoplasma pneumoniae PCR Not Detected (NotDetected); Parainfluenza Virus 1 PCR Not Detected (NotDetected); Parainfluenza Virus 2 PCR Not Detected (NotDetected); Parainfluenza Virus 3 PCR Not Detected (NotDetected); Parainfluenza Virus 4 PCR Not Detected (NotDetected); Respiratory Syncytial VirusPCR Not Detected (NotDetected); Rhinovirus/Enterovirus PCR Not Detected (NotDetected)
[2024-09-23 22:47] LABS: Appearance Urine Cloudy (Clear); Bacteria Urine Automated 4+ (None Seen); Bilirubin Urine Negative (Negative); Blood Urine 3+ (Negative); Color Urine Yellow; Epithelial Cell Urine Auto 0-2 /hpf (0-2); Glucose Urine UA Negative (Negative); Ketones Urine Trace (Negative); Leukocyte Esterase Urine 3+ (Negative); Nitrite Urine Positive (Negative); Protein Urine 2+ (Negative); RBC Urine Automated >20 /hpf (0-2); Specific Gravity Urine 1.018 (1.000-1.030); Urobilinogen Urine Negative (Negative); WBC Urine Automated >50 /hpf (0-5)
[2024-09-23 23:04] LABS: White Blood Cell Casts Urine Present /lpf (None Prsent)
--- NOTE | 2024-09-23 23:32 | XRay Report ---
Exam(s): XR CXR 1 VIEW EXAM: XR Chest, 1 View CLINICAL HISTORY: Reason for exam: sob. TECHNIQUE: Frontal view of the chest. COMPARISON: Prior chest x-ray from August 21, 2024. FINDINGS: Lungs: Mild peribronchial thickening of the central lower lobe bronchi with patchy opacity at the left lung base. Pleural space: Unremarkable. No pneumothorax. Heart: Unremarkable. No cardiomegaly. Mediastinum: Unremarkable. Normal mediastinal contour. Bones/joints: Unremarkable. No acute fracture. IMPRESSION: Bronchitis with left lower lobe infiltrate. No evidence of pleural effusion. Communications: Verify Receipt Electronically signed by: Cierra Wilson MD 09/23/24 23:31 PM
[2024-09-23] MEDS ORDERED: cefTRIAXone SODIUM 2,000 MG/50 ML BAG IV STA (23:59)
--- NOTE | 2024-09-24 00:14 | History & Physical Report ---
Date of Service September 24, 2024 Assessment & Plan (1) Aspiration pneumonia: Plan: Possible aspiration pneumonia Complicated UTI, history BPH/prostate cancer status post radiation/bladder cancer status post surgery/Keytruda Rx No sepsis for now valvular heart disease (moderate to severe aortic stenosis, mild MR/AR/TR) hypertension, elevated secondary to illness, hx adrenal insufficiency on chronic hydrocortisone/fludrocortisone Rx bronchial asthma/COPD, no overt wheezing on exam ANDRZEJ on CPAP, pulmonary hypertension history PE DVT status post IVC filter placement, not on anticoagulation secondary to bleeding complications as per records chronic anemia, hemoglobin better than baseline secondary to hemoconcentration dementia, patient mentating well Functional disability, recurrent admissions Admit to medical telemetry Zosyn for aspiration pneumonia and complicated UTI Aspiration precautions, BRONC BREAKER eval. Hold parameters for fludrocortisone for SBP greater than 140 PT OT eval DVT prophylaxis. SCDs Re: Transient hematuria, initiate Lovenox 40 mg s ubcutaneous daily if subsequent H&H stable. Full code Patient requesting updates for providers. Ainsley Ivet Lennox, contact numbers [phone]. Text document was generated using [employer] voice recognition software. It may contain grammatical or spelling errors. Kindly contact undersigned for clarification of any documentation item in question. History of Present Illness Chief Complaint: Cough, shortness of breath as per patient; confusion, hematuria, cloudy urine as per Primary Care Provider: Dr. Batista History obtained from patient, family, and records. Patient is a fair historian. Medical history significant for valvular heart disease (moderate to severe aortic stenosis, mild MR/AR/TR), hypertension, bronchial asthma/COPD, ANDRZEJ on CPAP, pulmonary hypertension, history PE DVT status post IVC filter placement, adrenal insufficiency on chronic hydrocortisone and fludrocortisone Rx, chronic anemia (baseline hemoglobin 10-11), dementia, recurrent UTIs, BPH, prostate cancer status post radiation, bladder cancer status post surgery off Keytruda, radiation cystitis as per records. Monthly admissions since May,. Recent confinement last month for influenza/parainfluenza illness and complicated UTI. 3 days history of cough symptoms productive of junky green-yellow sputum. Some SOB. Denies chest pain. Usual RLE swelling. Admits to coughing with food/water intake. sick as well. Denies abdominal pain. Patient urine subsequently noted to be cloudy by . Patient denies abdominal or flank pain complaints. Patient somewhat confused. Denies headache symptoms. Patient brought to ER by for evaluation. Medical History as above Surgical History : Sinus surgery, appendectomy, cataract surgery, TURP, IVC filter placement, TURBT Family History : Thyroid cancer, prostate cancer Personal/Social history : Non-smoker, no EtOH intake, retired [employer] employee Allergies Allergy/AdvReac Type Severity Reaction Status Date / Time Iodinated Contrast Media Allergy Severe LOVERSOL---CARDIAC Verified 06/22/24 13:[address] CONTRAST clindamycin Allergy Intermediate Rash Verified 06/22/24 13:25 cranberry Allergy Verified 07/30/24 12:19 chocolate flavor AdvReac Severe DIARRHEA/ Verified 06/22/24 13:25 Cannot take, interacts w/ medications. pembrolizumab [From [facility]] AdvReac Intermediate myocarditis Verified 06/22/24 13:25 Home Medications Medication Instructions Recorded Confirmed Type acetaminophen 325 mg tablet 650 mg (2 x 325 mg) PO Q4H PRN 06/08/24 09/24/24 Rx fever or pain #30 tabs ascorbic acid (vitamin C) 1,000 mg 1,000 mg PO DAILY #30 tabs 06/08/24 09/24/24 Rx tablet aspirin 81 mg tablet,delayed 81 mg PO DAILY #30 tabs 06/08/24 09/24/24 Rx release cholecalciferol (vitamin D3) 125 125 mcg PO DAILY #30 tabs 06/08/24 09/24/24 Rx mcg (5,000 unit) tablet (Vitamin D3) cyanocobalamin (vitamin B-12) 1,000 mcg PO DAILY #30 tabs 06/08/24 09/24/24 Rx 1,000 mcg tablet epinephrine 0.3 mg/0.3 mL 0.3 mg (0.3 mL) IM UD PRN 06/08/24 09/24/24 Rx injection, auto-injector Anaphylaxis #3 ea ferrous sulfate 325 mg (65 mg 325 mg PO DAILY #30 tabs 06/08/24 09/24/24 Rx iron) tablet,delayed release fluticasone fur. 200 mcg-umeclid 1 inh inhalation DAILY #1 ea 06/08/24 09/24/24 Rx 62.5 mcg-vilant 25 mcg inhalat.powder (Trelegy Ellipta) lidocaine 5 % topical patch 2 patch transdermal DAILY #20 ea 06/08/24 09/24/24 Rx magnesium chloride 64 mg 64 mg PO BID #60 tabs 06/08/24 09/24/24 Rx (magnesium chloride) tablet,delayed release memantine 10 mg tablet 10 mg PO BID #60 tabs 06/08/24 09/24/24 Rx multivitamin with minerals-folic 1 tab PO DAILY #30 tabs 06/08/24 09/24/24 Rx acid 200 mcg chewable tablet (Multivitamin Gummies) nystatin 100,000 unit/gram topical 1 applic EXT BID #30 grams 06/08/24 09/24/24 Rx powder (Nystop) omeprazole 20 mg capsule,delayed 20 mg PO DAILY #30 caps 06/08/24 09/24/24 Rx release solifenacin 5 mg tablet 5 mg PO DAILY #30 tabs 06/08/24 09/24/24 Rx hydrocortisone 10 mg tablet 10 mg PO 1500 #0 tabs 07/07/24 09/24/24 Rx (Cortef) hydrocortisone 10 mg tablet 20 mg (2 x 10 mg) PO QAM #0 tabs 07/07/24 09/24/24 Rx (Cortef) methocarbamol 500 mg tablet 500 mg PO UD 07/28/24 09/24/24 History mirabegron 25 mg tablet,extended 25 mg PO DAILY 07/28/24 09/24/24 History release 24 hr (Myrbetriq) sennosides 8.6 mg tablet (senna) 8.6 mg PO DAILY PRN Constipation 07/28/24 09/24/24 History albuterol sulfate 90 mcg/actuation 2 puff inhalation Q6H PRN 08/21/24 09/24/24 History aerosol inhaler Shortness Of Breath Or Wheezing escitalopram oxalate 5 mg tablet 5 mg PO UD 08/21/24 09/24/24 History fludrocortisone 0.1 mg tablet 0.1 mg PO UD 08/21/24 09/24/24 History hydroxyzine HCl 10 mg tablet 10 mg PO Q8H PRN anxiety #30 tabs 08/24/24 09/24/24 Rx Past Med/Surg History Problem List (Updated 09/24/24 @ 03:05 by Branden Chung MD) Aspiration pneumonia Chronic indwelling Devlin catheter (Acute) Complicated urinary tract infection (Acute) Dementia (Acute) Acute kidney injury superimposed on chronic kidney disease (Acute) Parainfluenza infection (Acute) Influenza A (H1N1) (Acute) Acute hypokalemia (Acute) Delirium Chronic indwelling Devlin catheter (Acute) Mild cognitive impairment Hx of prostatic malignancy ~ 2013- s/p Lupron and XRT Obstructive sleep apnea (Acute) Adrenal insufficiency (Acute 06/04/14) Bladder cancer (Acute) Stage 3 chronic kidney disease (Acute) History of pulmonary embolism hx "many years ago" unknown etiology Aortic stenosis Mild per 12/2022 ECHO -follows annually with cardiology Medical History Weakness Recurrent UTI Anxiety Elevated blood pressure reading Complicated UTI (urinary tract infection) Myocarditis Primary bladder malignant neoplasm Orthostatic hypotension Coagulopathy History of DVT (deep vein thrombosis) hx "many years ago" unknown etiology acute on chronic DVT during 12/2022 [facility] admission- Coumadin d/c'ed due to anemia and hematuria; IVC filter placed 12/28/22 COPD (chronic obstructive pulmonary disease) well controlled. uses Breo daily with exercise Fracture of multiple teeth Sacral pressure sore Ambulatory dysfunction Anemia Urethral stricture Ascending aorta dilation Mild- 4.4cm per 11/2022 ECHO Obesity Venous insufficiency (chronic) (peripheral) Radiation cystitis Kidney stones x1 episode. no surgery needed. Cardiac arrest hx r/t IV Contrast Dye "many years ago" Allergic rhinitis Contrast media allergy Hiatal hernia Surgical History S/P IVC filter S/P cataract extraction History of right cataract extraction History of colonoscopy H/O sinus surgery History of appendectomy S/P TURP (status post transurethral resection of prostate) Status post cystoscopy (11/07/13) Family History Father Prostate cancer Brother Prostate cancer Mother Thyroid cancer Cancer Other No family history of adverse response to anesthesia Social History Smoking Status: Never smoker Tobacco Type: Cigarettes Second Hand Exposure: Yes; Do You Dip or Chew Tobacco: No; Hx Alcohol Use: No Hx Substance Use: No Preferred Language: Dutch Communication Ability: Effective Visual Impairment: Limited Hearing Ability: Normal Multiple Needle Stitcher Required: No Beliefs That Will Affect Care: None marital status: Current Living Situation: Spouse Current Living Situation Comment: Jen current occupational status: retired How many Children do You have: 0 Other Information That Helps Us Care for You: No Feels Safe at Home: Yes Safety Concerns: Feels Safe At This Time Diet: regular during the past year weight has: decreased > 10 lbs Seatbelt Use: always Do you think of yourself as: straight/heterosexual Gender Identity: Male Assistive Devices: Walker Review of Systems Review of Systems: As per HPI, all other systems reviewed and negative Physical Exam Physical Exam: GENERAL: Oriented to year, slightly anxious, no respiratory distress SKIN: Pallor, warm HEENT: Alopecia, pale palpebral conjunctivae, no ptosis, dry buccal mucosa NECK : Supple, no tenderness CHEST : Decreased breath sounds, no tenderness HEART : RRR, systolic murmur ABDOMEN: Some distention, nontender EXTREMITIES : Chronic LE venous stasis, bilateral LE swelling (right greater than left, chronic as per patient) without tenderness, no other conspicuous deformities noted NEUROLOGIC : Oriented to year, no facial asymmetry, intention tremors, gait and stance not assessed Results & Data Results & Data Vital Signs (Past 12 Hours) Vital Signs Temp Pulse Pulse Resp BP BP Pulse Ox 09/23/24 21:56 90 16 156/91 H 100 09/23/24 20:27 100 09/23/24 20:24 85 09/23/24 19:56 100 09/23/24 19:56 90 22 161/93 H 100 09/23/24 19:56 37.0 C 90 22 161/93 H 100 O2 Del Method 09/23/24 21:56 Room Air 09/23/24 20:27 Room Air 09/23/24 20:24 09/23/24 19:56 Room Air 09/23/24 19:56 Room Air 09/23/24 19:56 Room Air Laboratory Results Laboratory Results WBC 8.99 K/ul (4.8-10.8) 09/23/24 20:12 RBC 4.27 M/uL (4.70-6.10) L 09/23/24 20:12 Hgb 12.0 g/dl (14.0-18.0) L 09/23/24 20:12 Hct 37.0 % (42.0-52.0) L 09/23/24 20:12 MCV 86.7 fL (80.0-100.0) 09/23/24 20:12 MCH 28.1 pg (25.0-34.0) 09/23/24 20:12 MCHC 32.4 g/dL (32.0-36.0) 09/23/24 20: RDW Std Deviation 54.5 fL (36.4-46.3) H 09/23/24 20: RDW Coeff of Robert 17.2 % (11.5-14.5) H 09/23/24 20:12 Plt Count 324 K/uL (130-400) 09/23/24 20: MPV 9.2 fL (9.4-12.4) L 09/23/24 20:12 Immature Gran % (Auto) 0.6 % 09/23/24 20:12 Neut % (Auto) 68.3 % 09/23/24 20:12 Lymph % (Auto) 22.7 % 09/23/24 20:12 Cooper % (Auto) 7.3 % 09/23/24 20:12 Eos % (Auto) 0.8 % 09/23/24: Baso % (Auto) 0.3 % 09/23/24: Neut # (Auto) 6.14 K/uL (1.40-6.50) 09/23/24 20:12 Lymph # (Auto) 2.04 K/uL (1.20-3.40) 09/23/24 20:12 Cooper # (Auto) 0.66 K/uL (0.11-0.59) H 09/23/24 20:12 Eos # (Auto) 0.07 K/uL (0.00-0.50) 09/23/24 20: Baso # (Auto) 0.03 K/uL (0.00-0.20) 09/23/24 20:12 Immature Gran # (Auto) 0.05 K/uL (0.01-0.20) 09/23/24 20:12 PT 10.9 Seconds (9.0-12.0) 09/23/24 20:12 INR 1.0 (0.9-1.1) 09/23/24 20:12 Sodium 139 mmol/L (136-145) 09/23/24 20:12 Potassium 3.8 mmol/L (3.5-5.1) 09/23/24 20:12 Chloride 105 mmol/L (98-107) 09/23/24 20:12 Carbon Dioxide 24 mmol/L (21-32) 09/23/24 20:12 Anion Gap 10 (3-11) 09/23/24 20:12 BUN 22 mg/dl (6-23) 09/23/24 20:12 Creatinine 1.17 mg/dl (0.6-1.4) 09/23/24 20:12 Est Cr Clr Drug Dosing 68.0 ml/min 09/23/24 20:12 eGFR 63.81 09/23/24 20:12 BUN/Creatinine Ratio 18.8 (10-20) 09/23/24 20:12 Glucose 99 mg/dl (70-99(Fasting)) 09/23/24 20:12 Calcium 9.1 mg/dl (8.6-10.3) 09/23/24 20:12 Magnesium 1.9 mg/dl (1.7-2.4) 09/23/24 20:12 Total Bilirubin 0.3 mg/dl (0.2-1.0) 09/23/24 20:12 AST 11 U/L (13-39) L 09/23/24 20:12 ALT 9 U/L (7-52) 09/23/24 20:12 Alkaline Phosphatase 101 U/L (34-104) 09/23/24 20:12 Troponin I High Sens 4.7 pg/ml (0-20) 09/23/24 20:12 Total Protein 7.0 gm/dl (6.0-8.3) 09/23/24 20:12 Albumin 3.6 gm/dl (3.4-5.0) 09/23/24 20:12 Globulin 3.4 gm/dl (2.5-4.0) 09/23/24 20:12 Albumin/Globulin Ratio 1.1 (0.9-2) 09/23/24 20:12 Lipase 18 U/L (11-82) 09/23/24 20:12 Urine Color Yellow 09/23/24 22:10 Urine Appearance Cloudy (Clear) A 09/23/24 22:10 Urine pH 8.0 (4.5-7.5) H 09/23/24 22:10 Ur Specific [place] 1.018 (1.000-1.030) 09/23/24 22:10 Urine Protein 2+ (Negative) H 09/23/24 22:10 Urine Glucose (UA) Negative (Negative) 09/23/24 22:10 Urine Ketones Trace (Negative) H 09/23/24 22:10 Urine Blood 3+ (Negative) H 09/23/24 22:10 Urine Nitrite Positive (Negative) A 09/23/24 22:10 Urine Bilirubin Negative (Negative) 09/23/24 22: Urine Urobilinogen Negative (Negative) 09/23/24 22:10 Ur Leukocyte Esterase 3+ (Negative) H 09/23/24 22:10 Urine WBC (Auto) >50 /hpf (0-5) H 09/23/24 22:10 Urine RBC (Auto) >20 /hpf (0-2) H 09/23/24 22:10 U Hyaline Cast (Auto) 11-20 /lpf (0-2) H 09/23/24 22:10 U Epithel Cells (Auto) 0-2 /hpf (0-2) 09/23/24 22:10 Urine Bacteria (Auto) 4+ (None Seen) H 09/23/24 22:10 WBC Casts Present /lpf (None Prsent) A 09/23/24 22:10 Adenovirus (PCR) Not Detected (NotDetected) 09/23/24 20:12 B. pertussis DNA (PCR) Not Detected (NotDetected) 09/23/24 20:12 B.parapertussis DNA PCR Not Detected (NotDetected) 09/23/24 20:12 C. pneumoniae DNA (PCR) Not Detected (NotDetected) 09/23/24 20:12 Coronavirus OC43 (PCR) Not Detected (NotDetected) 09/23/24 20:12 Coronavirus HKU1 (PCR) Not Detected (NotDetected) 09/23/24 20:12 Coronavirus 229E (PCR) Not Detected (NotDetected) 09/23/24 20:12 SARS-CoV-2 (PCR) Not Detected (NotDetected) 09/23/24 20:12 Coronavirus NL63 (PCR) Not Detected (NotDetected) 09/23/24 20:12 Human Metapneumovir PCR Not Detected (NotDetected) 09/23/24 20:12 Influenza Type A (PCR) Not Detected (NotDetected) 09/23/24 20:12 Influenza Type B (PCR) Not Detected (NotDetected) 09/23/24 20:12 M. pneumoniae (PCR) Not Detected (NotDetected) 09/23/24 20:12 Parainfluenza 1 (PCR) Not Detected (NotDetected) 09/23/24 20:12 Parainfluenza 2 (PCR) Not Detected (NotDetected) 09/23/24 20:12 Parainfluenza 3 (PCR) Not Detected (NotDetected) 09/23/24 20:12 Parainfluenza 4 (PCR) Not Detected (NotDetected) 09/23/24 20:12 RSV (PCR) Not Detected (NotDetected) 09/23/24 20:12 Entero/Rhino (PCR) Not Detected (NotDetected) 09/23/24 20:12 Impressions Chest X-Ray 09/23/24 20:27 CR Exam(s): XR CXR 1 VIEW EXAM: XR Chest, 1 View CLINICAL HISTORY: Reason for exam: sob. TECHNIQUE: Frontal view of the chest. COMPARISON: Prior chest x-ray from August 21, 2024. FINDINGS: Lungs: Mild peribronchial thickening of the central lower lobe bronchi with patchy opacity at the left lung base. Pleural space: Unremarkable. No pneumothorax. Heart: Unremarkable. No cardiomegaly. Mediastinum: Unremarkable. Normal mediastinal contour. Bones/joints: Unremarkable. No acute fracture. IMPRESSION: Bronchitis with left lower lobe infiltrate. No evidence of pleural effusion. Communications: Verify Receipt Electronically signed by: Cierra Wilson MD 09/23/24 23:31 PM Diagnostic Findings EKG as per my interpretation :Rate 90, NSR, normal axis, no ischemia
[2024-09-24] MEDS: DAPTOmycin 500 MG in SYRINGE 0 ML IV SCH (00:40)
[2024-09-24] MEDS: CEFEPIME 2000MG 2,000 MG/20 ML SYR IV STA (00:42)
[2024-09-24] MEDS: SODIUM CHLORIDE 0.9% 500 ML IV ONE (00:43)
[2024-09-24] MEDS ORDERED: SENNA 8.6 MG TAB PO PRN (01:13)
[2024-09-24] MEDS ORDERED: PROMETHAZINE 6.25 MG/50.25 ML BAG IV PRN (01:15)
[2024-09-24] MEDS: PIPERACILLIN/TAZOBACTAM 4.5 GM/100 ML BAG IV STA (02:13)
[2024-09-24] MEDS: ALBUT/IPRATROP 3MG/0.5MG NEB 3 ML VIAL NEB STA (05:32)
--- NOTE | 2024-09-24 06:31 | XRay Report ---
EXAM: XR chest 1V portable CLINICAL HISTORY: sob. TECHNIQUE: X-ray images of the chest were obtained in posteroanterior (PA) and lateral projections. COMPARISON: 08/21/2024 X-ray. FINDINGS: Pulmonary Parenchyma: Redemonstrated bilateral prominent central bronchial markings, and left basal atelectatic band. Subtle haziness is seen in both lower zones No evidence of consolidation. No evidence of pleural effusion or pleural thickening. Heart and Mediastinum: Heart size and shape are normal. Prominent aortic shadow. No mediastinal widening or masses. No hilar or mediastinal lymphadenopathy. Bony Thorax: Bony thorax appears intact without fractures or deformities. Soft Tissues: Soft tissues overlying the chest wall are unremarkable. IMPRESSION: Subtle haziness is seen in both lower zones, Would recommend clinical and lab correlation to rule out the possibility of mild pulmonary infection. No other interval changes since last study. Electronically signed by Felix Epstein 09-24-2024 06:30 AM
[2024-09-24] MEDS: METOPROLOL TARTRATE 1 MG/ML VIAL IV STA (06:33)
--- NOTE | 2024-09-24 07:32 | Electrocardiogram Report ---
Test Reason : Blood Pressure : */* mmHG Vent. Rate : 85 BPM Atrial Rate : 86 BPM P-R Int : 152 ms QRS Dur : 80 ms QT Int : 362 ms P-R-T Axes : 29 31 35 degrees QTcB Int : 430 ms Normal sinus rhythm Normal ECG When compared with ECG of 21-Aug-2024 12:39, QT has shortened Confirmed by Massimo Reyes ([id number]) on 09/24/2024 7:32:24 AM Referred By: REFERRED SELF Confirmed By: Massimo Reyes
[2024-09-24] MEDS: PIPERACILLIN/TAZOBACTAM 4.5 GM/100 ML BAG IV SCH (07:58)
[2024-09-24] MEDS: CYANOCOBALAMIN (B-12) 500 MCG TABLET PO SCH (07:59)
[2024-09-24] MEDS: ESCITALOPRAM OXALATE 10 MG TAB PO SCH (07:59)
[2024-09-24] MEDS: FERROUS SULFATE 325 MG TAB PO SCH (08:00)
[2024-09-24] MEDS: FLUDROCORTISONE ACETATE 0.1 MG TAB PO SCH (08:00)
[2024-09-24] MEDS: MAGNESIUM CHLORIDE W/CALCIUM 64MG DELAYED REL TAB PO SCH (08:01)
[2024-09-24] MEDS: HYDROCORTISONE 10 MG TAB PO SCH ×2 (08:01→15:22)
[2024-09-24] MEDS: PANTOprazole 40 MG TAB PO SCH (08:02)
[2024-09-24] MEDS: MEMANTINE HCL 10 MG TAB PO SCH (08:02)
[2024-09-24] MEDS: FLUTICASONE FUROATE 200MCG 14 PUFFS/INHALER INH SCH (08:02)
[2024-09-24] MEDS: VIBEGRON 75 MG TAB PO SCH (08:02)
[2024-09-24] MEDS: OXYBUTYNIN CHLORIDE XL 5 MG TABCR PO SCH (08:02)
[2024-09-24] MEDS: CEROVITE ADV FORMULA TAB PO SCH (08:02)
[2024-09-24] MEDS: UMECLIDINIUM/VILANTEROL 62.5/25MCG 7 PUFFS/INHALER INH SCH (08:03)
[2024-09-24] MEDS: LIDOCAINE 5% 1 PATCH TD SCH (08:08)
[2024-09-24 08:14] LABS: Basophils # (auto) 0.04 K/uL (0.00-0.20); Basophils % (auto) 0.4 %; Eosinophils # (auto) 0.06 K/uL (0.00-0.50); Eosinophils % (auto) 0.5 %; Hematocrit (blood only) 35.1 % (42.0-52.0); Hemoglobin 11.6 g/dl (14.0-18.0); Immature Granulocytes # (auto) 0.03 K/uL (0.01-0.20); Immature Granulocytes % (auto) 0.3 %; Lymphocytes # (auto) 3.28 K/uL (1.20-3.40); Lymphocytes % (auto) 29.8 %; Mean Corpuscular Hemoglobin 28.1 pg (25.0-34.0); Mean Platelet Volume 8.8 fL (9.4-12.4); Monocytes # (auto) 1.08 K/uL (0.11-0.59); Monocytes % (auto) 9.8 %; Neutrophils % (auto) 59.2 %; Platelet Count 303 K/uL (130-400); RDW Coefficient of Variation 17.3 % (11.5-14.5); RDW Standard Deviation 53.5 fL (36.4-46.3); Red Blood Count 4.13 M/uL (4.70-6.10); White Blood Count 10.99 K/ul (4.8-10.8)
[2024-09-24 08:31] LABS: BUN Creatinine Ratio 15.4 (10-20); Creatinine Clr Calc Pharmacy 61.2 ml/min; Potassium 3.4 mmol/L (3.5-5.1)
[2024-09-24] MEDS ORDERED: ENOXAPARIN INJ 40 MG/0.4 ML SYR SQ SCH (09:00)
[2024-09-24] MEDS ORDERED: NON-FORMULARY MEDICATION (Fluticasone-Umeclidin-Vilanter [Trelegy Ellipta] 200-62.5-25 mcg INH SCH (09:00)
[2024-09-24] MEDS ORDERED: CEFEPIME 2000MG 2,000 MG/20 ML SYR IV SCH (09:00)
[2024-09-24] MEDS: POTASSIUM CHLORIDE CRTAB 20 MEQ TABCR PO ONE (10:15)
--- NOTE | 2024-09-24 13:40 | Hospitalist Progress Note ---
Date of Service September 24, 2024 Assessment & Plan (1) Aspiration pneumonia: Plan: Complicated urinary tract infection Devlin catheter dependent H/O recurrent UTIs H/O BPH/prostate cancer s/p radiation, bladder cancer s/p surgery/Keytruda Rx Chronic intermittent hematuria --Reports Devlin catheter changed 2 days ago -- Urine culture pending Empirically on Zosyn Acute bronchitis left lower lobe Possible aspiration --CXR:Bronchitis with left lower lobe infiltrate. No evidence of pleural effusion. -- BioFire negative --Normal procalcitonin -- Saturating well on room air Aspiration precautions Speech therapy eval Empiric on Zosyn as above Chronic anemia Continue home supplements Monitor CBC Functional disability Recurrent admission Ambulatory dysfunction PT OT, fall precautions Asthma, COPD, ANDRZEJ No signs of exacerbation Continue home inhalers H/O adrenal insufficiency Continue home fludrocortisone, hydrocortisone Other Chronic Medical Problems: Valvular heart disease (moderate , mild AR) H/O PE/DVT status post IVC filter placement H/O Keytruda myocarditis Underlying pulmonary hypertension Mood Disorder Mild cognitive impairment -Continue home medications as able DVT Px: SCDs, Heparin SQ Code Status Full code Admission and Anticipated Discharge Date Admission Date: September 24, 2024 Subjective Patient is seen and examined at bedside Was having speech evaluation during my encounter this morning Cough resolved per patient He offers no complaints currently States having Devlin catheter replaced 2 days ago Denies any dyspnea, chest pain, nausea, vomiting, abdominal pain No other complaints Review of Systems Review of Systems: All systems reviewed & are unremarkable except as noted in Subjective Physical Exam Physical Exam: Physical Exam: Vitals signs as noted above General Appearance:Moderately built and nourished, no apparent distress Head: normocephalic, Atraumatic Eyes: normal inspection, EOMI Neck: supple, Trachea midline Respiratory/Chest: Normal breath sounds, CTA, No accessory muscle use Cardiovascular: S1, S2, + murmur Abdomen/GI:Soft, Non tender, Bowel sounds present : Catheter Extremities/Musculoskeletal:normal inspection, chronic right lower extremity edema Neurologic/Psych:AAOX3, grossly no focal neurological deficits,+ impaired memory Skin: normal color, warm Results & Data Results & Data Vital Signs (Past 12 Hours) Vital Signs Temp Pulse Pulse Resp BP BP BP 09/24/24 11:26 37.5 C 80 20 103/63 09/24/24 08:15 09/24/24 07:45 82 128/76 09/24/24 07:45 36.4 C L 82 20 128/76 09/24/24 06:33 98 H 174/89 H 09/24/24 05:32 98 H 18 09/24/24 01:40 88 09/24/24 01:40 09/24/24 01:40 37.1 C 89 18 174/89 H Pulse Ox O2 Del Method 09/24/24 11:26 95 Room Air 09/24/24 08:15 Room Air 09/24/24 07:45 09/24/24 07:45 99 Room Air 09/24/24 06:33 09/24/24 05:32 100 Room Air 09/24/24 01:40 09/24/24 01:40 Room Air 09/24/24 01:40 99 Room Air Laboratory Results Short CBC 09/23/24 09/24/24 Range/Units 20:12 08:00 WBC 8.99 10.99 H (4.8-10.8) K/ul Hgb 12.0 L 11.6 L (14.0-18.0) g/dl Hct 37.0 L 35.1 L (42.0-52.0) % Plt Count 324 303 (130-400) K/uL BMP 09/23/24 09/24/24 20:12 08:00 Sodium 139 136 Potassium 3.8 3.4 L Chloride 105 104 Carbon Dioxide 24 22 BUN 22 20 Creatinine 1.17 1.30 Glucose 99 97 Calcium 9.1 9.0 Liver Function 09/23/24 Range/Units 20:12 Total Bilirubin 0.3 (0.2-1.0) mg/dl AST 11 L (13-39) U/L ALT 9 (7-52) U/L Alkaline Phosphatase 101 (34-104) U/L Albumin 3.6 (3.4-5.0) gm/dl Urine 09/23/24 Range/Units 22:10 Urine Color Yellow Urine Appearance Cloudy A (Clear) Urine pH 8.0 H (4.5-7.5) Ur Specific [place] 1.018 (1.000-1.030) Urine Protein 2+ H (Negative) Urine Glucose (UA) Negative (Negative)
[2024-09-24] MEDS: HEPARIN SOD 5,000 UNIT/0.5 ML VIAL SQ SCH (21:01)
[2024-09-25 07:40] LABS: Hematocrit (blood only) 34.8 % (42.0-52.0); Hemoglobin 11.3 g/dl (14.0-18.0); Mean Corpuscular Hemoglobin 28.2 pg (25.0-34.0); Mean Corpuscular Hgb Conc 32.5 g/dL (32.0-36.0); Mean Corpuscular Volume 86.8 fL (80.0-100.0); Mean Platelet Volume 8.7 fL (9.4-12.4); Platelet Count 269 K/uL (130-400); RDW Coefficient of Variation 17.7 % (11.5-14.5); RDW Standard Deviation 56.8 fL (36.4-46.3); Red Blood Count 4.01 M/uL (4.70-6.10); White Blood Count 6.65 K/ul (4.8-10.8)
[2024-09-25 07:54] LABS: BUN Creatinine Ratio 11.7 (10-20); Calcium 8.8 mg/dl (8.6-10.3)
--- NOTE | 2024-09-25 14:15 | Hospitalist Progress Note ---
Date of Service September 25, 2024 Assessment & Plan (1) Aspiration pneumonia: Plan: Complicated urinary tract infection Devlin catheter dependent H/O recurrent UTIs H/O BPH/prostate cancer s/p radiation, bladder cancer s/p surgery/Keytruda Rx Chronic intermittent hematuria --Reports Devlin catheter changed 2 days ago -- Urine culture--more than 3 types of organisms all high counts Continue Zosyn for now Acute bronchitis left lower lobe Possible aspiration --CXR:Bronchitis with left lower lobe infiltrate. No evidence of pleural effusion. 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 Underlying pulmonary hypertension Mood Disorder Mild cognitive impairment -Continue home medications as able DVT Px: SCDs, Heparin SQ Code Status Full code Disposition Patient prefers to be discharged home PT OT prior to discharge Admission and Anticipated Discharge Date Admission Date: September 24, 2024 Subjective Patient is seen and examined at bedside States having mild foot pain R>L Offers no other complaints today Reports minimal cough Also denies any dyspnea, chest pain, nausea, vomiting, abdominal pain Eager to get discharged home Review of Systems Review of Systems: All systems reviewed & are unremarkable except as noted in Subjective Physical Exam Physical Exam: Physical Exam: Vitals signs as noted above General Appearance:Moderately built and nourished, no apparent distress Head: normocephalic, Atraumatic Eyes: normal inspection, EOMI Neck: supple, Trachea midline Respiratory/Chest: Normal breath sounds, CTA, No accessory muscle use Cardiovascular: S1, S2, + murmur Abdomen/GI:Soft, Non tender, Bowel sounds present : Catheter Extremities/Musculoskeletal:normal inspection, chronic right lower extremity edema Neurologic/Psych:AAOX3, grossly no focal neurological deficits,+ impaired memory Skin: normal color, warm Results & Data Results & Data Vital Signs (Past 12 Hours) Vital Signs Temp Pulse Pulse Pulse Resp BP Pulse Ox 09/25/24 12:42 76 09/25/24 11:42 36.7 C 73 18 106/68 97 09/25/24 11:31 09/25/24 07:35 36.9 C 74 20 111/72 96 09/25/24 05:44 75 09/25/24 03:37 37.1 C 75 20 110/67 96 O2 Del Method 09/25/24 12:42 09/25/24 11:42 Room Air 09/25/24 11:31 Room Air 09/25/24 07:35 Room Air 09/25/24 05:44 09/25/24 03:37 Room Air Laboratory Results Short CBC 09/25/24 Range/Units 07:14 WBC 6.65 (4.8-10.8) K/ul Hgb 11.3 L (14.0-18.0) g/dl Hct 34.8 L (42.0-52.0) % Plt Count 269 (130-400) K/uL BMP 09/25/24 07:14 Sodium 138 Potassium 4.0 Chloride 105 Carbon Dioxide 25 BUN 16 Creatinine 1.37 Glucose 92 Calcium 8.8
[2024-09-25] MEDS: ACETAMINOPHEN 325 MG TAB PO PRN (18:42)
[2024-09-25] MEDS: MELATONIN 3 MG TAB PO PRN (21:23)
[2024-09-26] MEDS: hydrOXYzine HCl 10 MG TAB PO PRN (11:56)
--- NOTE | 2024-09-26 16:36 | Hospitalist Progress Note ---
Date of Service September 26, 2024 Assessment & Plan (1) Aspiration pneumonia: Plan: Complicated urinary tract infection Devlin catheter dependent H/O recurrent UTIs H/O BPH/prostate cancer s/p radiation, bladder cancer s/p surgery/Keytruda Rx Chronic intermittent hematuria -- Urine culture--more than 3 types of organisms all high counts Devlin catheter exchanged Continue Zosyn> transition to Augmentin as below Acute bronchitis left lower lobe Possible aspiration --CXR:Bronchitis with left lower lobe infiltrate. No evidence of pleural effusion. 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 Underlying pulmonary hypertension Mood Disorder Mild cognitive impairment -Continue home medications as able DVT Px: SCDs, Heparin SQ Code Status Full code Disposition Patient prefers to be discharged home PT OT prior to discharge Admission and Anticipated Discharge Date Admission Date: September 24, 2024 Subjective Patient is seen and examined at bedside Slightly anxious during my encounter this morning Offers no new complaints Updated patient's over the phone Denies any foot pain today Also denies any dyspnea, chest pain, nausea, vomiting, abdominal pain Review of Systems Review of Systems: All systems reviewed & are unremarkable except as noted in Subjective Physical Exam Physical Exam: Physical Exam: Vitals signs as noted above General Appearance:Moderately built and nourished, no apparent distress Head: normocephalic, Atraumatic Eyes: normal inspection, EOMI Neck: supple, Trachea midline Respiratory/Chest: Normal breath sounds, CTA, No accessory muscle use Cardiovascular: S1, S2, + murmur Abdomen/GI:Soft, Non tender, Bowel sounds present : Catheter Extremities/Musculoskeletal:normal inspection, chronic right lower extremity edema Neurologic/Psych:AAOX3, grossly no focal neurological deficits,+ impaired memory Skin: normal color, warm Results & Data Results & Data Vital Signs (Past 12 Hours) Vital Signs Temp Pulse Pulse Resp BP BP Pulse Ox 09/26/24 15:12 36.7 C 71 18 149/83 H 100 09/26/24 13:03 83 09/26/24 10:56 36.6 C 80 18 111/64 100 09/26/24 08:30 09/26/24 07:34 36.5 C 72 20 113/71 99 O2 Del Method 09/26/24 15:12 Room Air 09/26/24 13:03 09/26/24 10:56 Room Air 09/26/24 08:30 Room Air 09/26/24 07:34 Room Air
[2024-09-26] MEDS: AMOXICILLIN/CLAVULANATE 875 MG TAB PO SCH (20:54)
[2024-09-27 07:36] LABS: Hematocrit (blood only) 34.9 % (42.0-52.0); Hemoglobin 11.1 g/dl (14.0-18.0); Mean Corpuscular Hemoglobin 27.5 pg (25.0-34.0); Mean Corpuscular Hgb Conc 31.8 g/dL (32.0-36.0); Mean Corpuscular Volume 86.6 fL (80.0-100.0); Mean Platelet Volume 8.6 fL (9.4-12.4); Platelet Count 293 K/uL (130-400); RDW Coefficient of Variation 17.1 % (11.5-14.5); RDW Standard Deviation 54.6 fL (36.4-46.3); Red Blood Count 4.03 M/uL (4.70-6.10); White Blood Count 5.17 K/ul (4.8-10.8)
[2024-09-27 07:44] LABS: BUN Creatinine Ratio 13.3 (10-20); Calcium 8.5 mg/dl (8.6-10.3); Creatinine Clr Calc Pharmacy 60.6 ml/min; Potassium 3.8 mmol/L (3.5-5.1)
--- NOTE | 2024-09-27 10:16 | Discharge Summary ---
Date of Service September 27, 2024 Admission HPI Per Admitting Provider History obtained from patient, family, and records. Patient is a fair historian. Medical history significant for valvular heart disease (moderate to severe aortic stenosis, mild MR/AR/TR), hypertension, bronchial asthma/COPD, ANDRZEJ on CPAP, pulmonary hypertension, history PE DVT status post IVC filter placement, adrenal insufficiency on chronic hydrocortisone and fludrocortisone Rx, chronic anemia (baseline hemoglobin 10-11), dementia, recurrent UTIs, BPH, prostate cancer status post radiation, bladder cancer status post surgery off Keytruda, radiation cystitis as per records. Monthly admissions since May,. Recent confinement last month for influenza/parainfluenza illness and complicated UTI. 3 days history of cough symptoms productive of junky green-yellow sputum. Some SOB. Denies chest pain. Usual RLE swelling. Admits to coughing with food/water intake. sick as well. Denies abdominal pain. Patient urine subsequently noted to be cloudy by . Patient denies abdominal or flank pain complaints. Patient somewhat confused. Denies headache symptoms. Patient brought to ER by for evaluation. Medical History as above Surgical History : Sinus surgery, appendectomy, cataract surgery, TURP, IVC filter placement, TURBT Family History : Thyroid cancer, prostate cancer Personal/Social history : Non-smoker, no EtOH intake, retired [employer] employee Admission Exam Per Admitting Provider GENERAL: Oriented to year, slightly anxious, no respiratory distress SKIN: Pallor, warm HEENT: Alopecia, pale palpebral conjunctivae, no ptosis, dry buccal mucosa NECK : Supple, no tenderness CHEST : Decreased breath sounds, no tenderness HEART : RRR, systolic murmur ABDOMEN: Some distention, nontender EXTREMITIES : Chronic LE venous stasis, bilateral LE swelling (right greater than left, chronic as per patient) without tenderness, no other conspicuous deformities noted NEUROLOGIC : Oriented to year, no facial asymmetry, intention tremors, gait and stance not assessed Principal Diagnosis Aspiration pneumonia Discharge Exam Constitutional + well hydrated; no acute distress Eyes PERRL, conjunctivae normal, anicteric sclerae ENMT external ear and nose normal, oropharynx normal Respiratory normal respiratory effort, lungs clear to auscultation Cardiovascular Rate/Rhythm: regular rate and regular rhythm Gastrointestinal (Abdomen) normal bowel sounds, soft, nontender, no hepatosplenomegaly Neurologic PERRL, EOMI, accommodation nl, no face palsy, no dysarthria Psychiatric A+Ox3, euthymic affect Discharge Data Allergies Allergy/AdvReac Type Severity Reaction Status Date / Time Iodinated Contrast Media Allergy Severe LOVERSOL---CARDIAC Verified 06/22/24 13:[address] CONTRAST clindamycin Allergy Intermediate Rash Verified 06/22/24 13:25 cranberry Allergy Verified 07/30/24 12:19 chocolate flavor AdvReac Severe DIARRHEA/ Verified 06/22/24 13:25 Cannot take, interacts w/ medications. pembrolizumab [From Keytruda] AdvReac Intermediate myocarditis Verified 06/22/24 13:25 Consultations 09/24/24 00:00 ED Decision to Admit Stat Hospital Course (1) Aspiration pneumonia: CXR showed bronchitis with left lower lobe infiltrate BioFire negative Patient was treated with antibiotics Discharged on Augmentin to complete 5 days of treatment Devlin catheter dependent H/O recurrent UTIs H/O BPH/prostate cancer s/p radiation, bladder cancer s/p surgery/Keytruda Rx Chronic intermittent hematuria -- Urine culture--more than 3 types of organisms all high counts. Likely rich Devlin catheter exchanged I called and updated her Total Time Total Time Spent Total Time Spent (In Minutes): 45 Total Time Includes: Examination of the Patient, Discharge Planning, Medication Reconciliation and Other Discharge Plan Discharge Items Patient Disposition: Home - Home Health Services Reason For Visit: Confusion, cough Discharge Diagnosis: Aspiration pneumonia Activity: Resume your previous activity Non-emergency contact: Primary Care Provider Call non-emergency contact if: you have any medication questions Follow-up/Referrals: Deondre Hill MD [Primary Care Provider] - (Date & Time 10/02/2024 11:40 AM Provider: Damaris Beyer MD [facility], [facility] ) Diet: Regular Addtl Attending Provider Instructions: Mr High You were hospitalized and managed for the above listed diagnoses You are being discharged on antibiotics to complete treatment. Please ensure follow up with your Primary Doctor. It was a pleasure taking care of you. Pending Studies at Discharge: No Stand-Alone Forms: My [employer], Smoking Cessation Medications and DC Order Prescriptions: New amoxicillin-pot clavulanate 875-125 mg Tablet 1 tab PO BIDM Qty: 3 0RF Continued hydrocortisone [Cortef] 10 mg tablet 10 mg PO 1500 Qty: 0 0RF Rx Instructions: for 1 week, then go back to 20mg in am. and 10mg at 1500 hydrocortisone [Cortef] 10 mg tablet 20 mg PO QAM Qty: 0 0RF methocarbamol 500 mg tablet 500 mg PO UD Rx Instructions: filled 08/21 for 30 day supply #90 sennosides [senna] 8.6 mg Tablet 8.6 mg PO DAILY PRN (Reason: Constipation) mirabegron [Myrbetriq] 25 mg tablet extended release 24 hr 25 mg PO DAILY Rx Instructions: RECENT FILL PT COULD NOT CONFIRM acetaminophen 325 mg Tablet 650 mg PO Q4H PRN (Reason: fever or pain) Qty: 30 0RF memantine 10 mg Tablet 10 mg PO BID Qty: 60 0RF lidocaine 5 % Adhesive Patch,Medicated 2 patch transdermal DAILY Qty: 20 0RF nystatin [Nystop] 100,000 unit/gram Powder 1 applic EXT BID Qty: 30 0RF ascorbic acid (vitamin C) 1,000 mg Tablet 1,000 mg PO DAILY Qty: 30 0RF cyanocobalamin (vitamin B-12) 1,000 mcg Tablet 1,000 mcg PO DAILY Qty: 30 0RF aspirin 81 mg Tablet,Delayed Release (Dr/Ec) 81 mg PO DAILY Qty: 30 0RF omeprazole 20 mg capsule,delayed release(DR/EC) 20 mg PO DAILY Qty: 30 0RF epinephrine 0.3 mg/0.3 mL Auto-Injector 0.3 mg IM UD PRN (Reason: Anaphylaxis) Qty: 3 0RF Rx Instructions: prn anaphylaxis ferrous sulfate 325 mg (65 mg iron) Tablet,Delayed Release (Dr/Ec) 325 mg PO DAILY Qty: 30 0RF solifenacin 5 mg tablet 5 mg PO DAILY Qty: 30 0RF Rx Instructions: last filled 02/27 30 day supply #30 magnesium chloride 64 mg Tablet,Delayed Release (Dr/Ec) 64 mg PO BID Qty: 60 0RF cholecalciferol (vitamin D3) [Vitamin D3] 125 mcg (5,000 unit) Tablet 125 mcg PO DAILY Qty: 30 0RF multivit with min-folic acid [Multivitamin Gummies] 200 mcg Tablet,Chewable 1 tab PO DAILY Qty: 30 0RF Trelegy Ellipta 200-62.5-25 mcg blister with device 1 inh INHALATION DAILY Qty: 1 0RF escitalopram oxalate 5 mg tablet 5 mg PO UD Rx Instructions: filled 08/21 30 day supply #30 albuterol sulfate 90 mcg/actuation HFA aerosol inhaler 2 puff INHALATION Q6H PRN (Reason: Shortness Of Breath Or Wheezing) fludrocortisone 0.1 mg tablet 0.1 mg PO UD Rx Instructions: 0.1mg po daily. filled 07/15 30 day supply #30 hydroxyzine HCl 10 mg tablet 10 mg PO Q8H PRN (Reason: anxiety) Qty: 30 0RF Discharge Orders: Discharge Order (Routine); Ordered 09/27/24 Ordered By: Alda Christian Admission Data Admit Date/Time: 09/24/24 00:28 Attending Provider: Alda Christian I. Admit Provider: Branden Chung Primary Care Provider: Deondre Hill Other Providers: Branden Chung; [facility]; Matt Gongora Other Interventions: Discharge Summary Assessment (RN) Last Done: 09/27/24 11:08
[2024-09-27 11:51] VITALS: BP 104/65; PULSE 67; RESP 18; TEMP 98.2; O2SAT 96
== END 2024-09-27 13:14 | disposition home health service (06) | DRG 178 ==
LOC: ED 20:00 → SUATTDRO 09-24 00:28 → 2N 09-24 00:28

== ENCOUNTER 2024-11-03 13:30 | Inpatient (IN) ==
[2024-11-03 14:11] LABS: Basophils # (auto) 0.05 K/uL (0.00-0.20); Basophils % (auto) 0.6 %; Eosinophils # (auto) 0.15 K/uL (0.00-0.50); Eosinophils % (auto) 1.9 %; Hematocrit (blood only) 40.1 % (42.0-52.0); Immature Granulocytes # (auto) 0.01 K/uL (0.01-0.20); Immature Granulocytes % (auto) 0.1 %; Lymphocytes # (auto) 1.67 K/uL (1.20-3.40); Lymphocytes % (auto) 21.5 %; Mean Corpuscular Hemoglobin 28.6 pg (25.0-34.0); Mean Corpuscular Hgb Conc 32.4 g/dL (32.0-36.0); Mean Corpuscular Volume 88.1 fL (80.0-100.0); Monocytes # (auto) 0.54 K/uL (0.11-0.59); Monocytes % (auto) 6.9 %; Neutrophils # (auto) 5.36 K/uL (1.40-6.50); Platelet Count 227 K/uL (130-400); RDW Coefficient of Variation 16.1 % (11.5-14.5); RDW Standard Deviation 52.3 fL (36.4-46.3); Red Blood Count 4.55 M/uL (4.70-6.10); White Blood Count 7.78 K/ul (4.8-10.8)
[2024-11-03 14:28] LABS: Appearance Urine Cloudy (Clear); Bacteria Urine Automated 3+ (None Seen); Bilirubin Urine Negative (Negative); Blood Urine 2+ (Negative); Color Urine Yellow; Epithelial Cell Urine Auto 0-2 /hpf (0-2); Glucose Urine UA Negative (Negative); Ketones Urine Negative (Negative); Leukocyte Esterase Urine 3+ (Negative); Nitrite Urine Negative (Negative); Protein Urine 1+ (Negative); RBC Urine Automated >20 /hpf (0-2); Specific Gravity Urine 1.015 (1.000-1.030); Urobilinogen Urine Negative (Negative); WBC Urine Automated >50 /hpf (0-5)
[2024-11-03 14:40] LABS: Alanine Aminotransferase 7 U/L (7-52); Albumin Globulin Ratio 1.4 (0.9-2); Albumin Level 3.8 gm/dl (3.4-5.0); Alkaline Phosphatase 97 U/L (34-104); Anion Gap 2 (3-11); Aspartate Aminotransferase 15 U/L (13-39); BUN Creatinine Ratio 16.9 (10-20); Bilirubin,Total 0.4 mg/dl (0.2-1.0); Blood Urea Nitrogen 20 mg/dl (6-23); Carbon Dioxide 29 mmol/L (21-32); Chloride 107 mmol/L (98-107); Globulin 2.7 gm/dl (2.5-4.0); Glucose 108 mg/dl (70-99(Fasting)); Potassium 3.9 mmol/L (3.5-5.1); Sodium 138 mmol/L (136-145); Total Protein 6.5 gm/dl (6.0-8.3)
[2024-11-03] MEDS: PIPERACILLIN/TAZOBACTAM 4.5 GM/120 ML BAG IV ONE (16:56)
--- NOTE | 2024-11-03 17:03 | CT Scan Report ---
CT head without contrast History: Confusion Comparison: None Technique: Using multidetector thin collimation helical acquisition technique, axial, coronal and sagittal CT images from the skull base to the vertex were obtained without intravenous contrast. Dose reduction techniques were achieved by using automatic exposure control and/or adjustment of mA and/or kV according to patient size and/or use of iterative reconstruction technique. Findings: No intracranial hemorrhage, mass-effect, or midline shift. The ventricles are proportionate to the cerebral sulci. The brantley to white matter differentiation of the cerebral hemispheres is preserved. The basal cisterns are patent. Marked cerebral atrophy. The visualized paranasal sinuses are clear. Mastoid air cells are clear. Impression: No acute intracranial pathology. Marked cerebral atrophy. Electronically signed by Dequan Montgomery 11-03-2024 5:02 PM
--- NOTE | 2024-11-03 17:38 | History & Physical Report ---
Date of Service November 03, 2024 Assessment & Plan (1) Confusion: (2) Chronic indwelling Tatum catheter: Plan: #Chronic intermittent hematuria #Bladder cancer s/p surgery #prostate cancer s/p radiation therapy #AMS #Cognitive impairment #Possible UTI reported increased confusion today In ER afebrile, vitals stable. No leukocytosis. UA: 3+bacteria, 3+ leuk esterase, 2+ blood, >50 WBC, >[address] head: No acute intracranial abnormality CXR: No infiltrate Will obtain influenza, RSV, SARS Cov 2 testing In ER given Zosyn Reported Tatum last changed in September Urine culture pending Empirically on Zosyn CBC, BMP in am #H/O adrenal insufficiency Continue home fludrocortisone, hydrocortisone #Chronic anemia Hgb: 13 Continue home supplements Monitor CBC #Ambulatory dysfunction PT OT eval Fall precautions Currently has home PT #Asthma, COPD, ANDRZEJ No signs of exacerbation Continue home inhalers #History orthostatic hypotension BPs in throughout ER elevated. Monitor DVT Prophylaxis SCDs for now. If no noted hematuria would likely be able to start chemical VTE prophylaxis Patient's would like updates Cell phone number: [phone] Admit med surg Full Code as per discussion with pt, pt's Follows with Dr Batista for routine care Pt was seen and care coordinated with Dr Millan. See addendum I spent a total of 73 minutes reviewing notes, outpatient records, labs, medication, coordinating, documenting and providing care for this patient excluding time spent in the performance of separately billed services and excluding time spent by another provider/QHP. 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 History obtained from patient's on phone as patient with baseline confusion. Patient states feels a little SOB but is unable to further clarify. Patient states having memory problems. He states has been using walker at home and had been ambulating. Per she was concerned as patient was more confused this morning. She states that he didn't know her name this morning and that is not his normal. He is usually oriented to person, place and knows family and friend s. concerned Patient may have UTI with this increased confusion as this is occurred in past. states past 5 days has had nasal congestion. States she has also had nasal congestion. She states he has had a little cough sometimes productive yellow. States 2 weeks ago had couple of loose stools and stopped giving him apple juice and loose stools have subsided. States has been eating and drinking normally. Reports often has cloudy urine in Tatum bag. Denies any noted vomiting or diarrhea or rashes. Per patients patient has home PT coming and she is pleased with the PT and his progress. Allergies Allergy/AdvReac Type Severity Reaction Status Date / Time Iodinated Contrast Media Allergy Severe LOVERSOL---CARDIAC Verified 11/03/24 17:[address] CONTRAST clindamycin Allergy Intermediate Rash Verified 11/03/24 17:28 cranberry Allergy Unknown Unknown Verified 11/03/24 17:28 chocolate flavor AdvReac Severe DIARRHEA/ Verified 11/03/24 17:28 Cannot take, interacts w/ medications. pembrolizumab [From Aireum] AdvReac Intermediate myocarditis Verified 11/03/24 17:28 Home Medications Medication Instructions Recorded Confirmed Type acetaminophen 325 mg tablet 650 mg (2 x 325 mg) PO Q4H PRN 06/08/24 11/03/24 Rx fever or pain #30 tabs ascorbic acid (vitamin C) 1,000 mg 1,000 mg PO DAILY #30 tabs 06/08/24 11/03/24 Rx tablet cholecalciferol (vitamin D3) 125 125 mcg PO DAILY #30 tabs 06/08/24 11/03/24 Rx mcg (5,000 unit) tablet (Vitamin D3) cyanocobalamin (vitamin B-12) 1,000 mcg PO DAILY #30 tabs 06/08/24 11/03/24 Rx 1,000 mcg tablet epinephrine 0.3 mg/0.3 mL 0.3 mg (0.3 mL) IM UD PRN 06/08/24 11/03/24 Rx injection, auto-injector Anaphylaxis #3 ea fluticasone fur. 200 mcg-umeclid 1 inh inhalation DAILY #1 ea 06/08/24 11/03/24 Rx 62.5 mcg-vilant 25 mcg inhalat.powder (Trelegy Ellipta) lidocaine 5 % topical patch 2 patch transdermal DAILY #20 ea 06/08/24 11/03/24 Rx memantine 10 mg tablet 10 mg PO BID #60 tabs 06/08/24 11/03/24 Rx multivitamin with minerals-folic 1 tab PO DAILY #30 tabs 06/08/24 11/03/24 Rx acid 200 mcg chewable tablet (Multivitamin Gummies) omeprazole 20 mg capsule,delayed 20 mg PO DAILY #30 caps 06/08/24 11/03/24 Rx release solifenacin 5 mg tablet 5 mg PO DAILY #30 tabs 06/08/24 11/03/24 Rx hydrocortisone 10 mg tablet 20 mg (2 x 10 mg) PO QAM #0 tabs 07/07/24 11/03/24 Rx (Cortef) mirabegron 25 mg tablet,extended 25 mg PO DAILY 07/28/24 11/03/24 History release 24 hr (Myrbetriq) albuterol sulfate 90 mcg/actuation 2 puff inhalation Q6H PRN 08/21/24 11/03/24 History aerosol inhaler Shortness Of Breath Or Wheezing fludrocortisone 0.1 mg tablet 0.1 mg PO DAILY 08/21/24 11/03/24 History ferrous sulfate 325 mg (65 mg 325 mg PO 3XWK 11/03/24 11/03/24 History iron) tablet,delayed release hydrocortisone 10 mg tablet 10 mg PO .DAILY @ 1500 11/03/24 11/03/24 History (Cortef) magnesium chloride 64 mg 64 mg PO DAILY 11/03/24 11/03/24 History (magnesium chloride) tablet,delayed release Past Med/Surg History Problem List (Updated 11/03/24 @ 17:58 by Tamera Schmidt PA-C) Confusion Aspiration pneumonia Chronic indwelling Tatum catheter (Acute) Complicated urinary tract infection (Acute) Dementia (Acute) Acute kidney injury superimposed on chronic kidney disease (Acute) Parainfluenza infection (Acute) Influenza A (H1N1) (Acute) Acute hypokalemia (Acute) Delirium Chronic indwelling Tatum catheter (Acute) Mild cognitive impairment Hx of prostatic malignancy ~ 2013- s/p Lupron and XRT Obstructive sleep apnea (Acute) Adrenal insufficiency (Acute 06/04/14) Bladder cancer (Acute) Stage 3 chronic kidney disease (Acute) History of pulmonary embolism hx "many years ago" unknown etiology Aortic stenosis Mild per 12/2022 ECHO -follows annually with cardiology Medical History Weakness Recurrent UTI Anxiety Elevated blood pressure reading Complicated UTI (urinary tract infection) Myocarditis Primary bladder malignant neoplasm Orthostatic hypotension Coagulopathy History of DVT (deep vein thrombosis) hx "many years ago" unknown etiology acute on chronic DVT during 12/2022 [facility] admission- Coumadin d/c'ed due to anemia and hematuria; IVC filter placed 12/28/22 COPD (chronic obstructive pulmonary disease) well controlled. uses Breo daily with exercise Fracture of multiple teeth Sacral pressure sore Ambulatory dysfunction Anemia Urethral stricture Ascending aorta dilation Mild- 4.4cm per 11/2022 ECHO Obesity Venous insufficiency (chronic) (peripheral) Radiation cystitis Kidney stones x1 episode. no surgery needed. Cardiac arrest hx r/t IV Contrast Dye "many years ago" Allergic rhinitis Contrast media allergy Hiatal hernia Surgical History S/P IVC filter S/P cataract extraction History of right cataract extraction History of colonoscopy H/O sinus surgery History of appendectomy S/P TURP (status post transurethral resection of prostate) Status post cystoscopy (11/07/13) Family History Father Prostate cancer Brother Prostate cancer Mother Thyroid cancer Cancer Other No family history of adverse response to anesthesia Social History Smoking Status: Never smoker Tobacco Type: Cigarettes Second Hand Exposure: Yes; Do You Dip or Chew Tobacco: No; Hx Alcohol Use: No Hx Substance Use: No Preferred Language: Kiswahili Communication Ability: Effective Visual Impairment: Limited Hearing Ability: Normal Dealership General Manager Required: No Beliefs That Will Affect Care: None marital status: Current Living Situation: Spouse Current Living Situation Comment: Jen current occupational status: retired How many Children do You have: 0 Feels Safe at Home: Yes Diet: regular during the past year weight has: decreased > 10 lbs Seatbelt Use: always Do you think of yourself as: straight/heterosexual Gender Identity: Male Assistive Devices: Bedside Commode, Hospital Bed, Walker and Other Review of Systems Review of Systems: Unobtainable due to cognitive status Physical Exam Physical Exam: PE per Dr Millan Results & Data Results & Data Vital Signs (Past 12 Hours) Vital Signs Temp Pulse Pulse Resp BP BP Pulse Ox 11/03/24 16:54 66 11/03/24 16:40 67 18 134/76 100 11/03/24 13:40 36.2 C L 78 20 132/88 100 O2 Del Method 11/03/24 16:54 11/03/24 16:40 11/03/24 13:40 Room Air Laboratory Results Short CBC 11/03/24 Range/Units 13:50 WBC 7.78 (4.8-10.8) K/ul Hgb 13.0 L (14.0-18.0) g/dl Hct 40.1 L (42.0-52.0) % Plt Count 227 (130-400) K/uL BMP 11/03/24 13:50 Sodium 138 Potassium 3.9 Chloride 107 Carbon Dioxide 29 BUN 20 Creatinine 1.18 Glucose 108 H Calcium 9.0 Liver Function 11/03/24 Range/Units 13:50 Total Bilirubin 0.4 (0.2-1.0) mg/dl AST 15 (13-39) U/L ALT 7 (7-52) U/L Alkaline Phosphatase 97 (34-104) U/L Albumin 3.8 (3.4-5.0) gm/dl Urine 11/03/24 Range/Units 13:50 Urine Color Yellow Urine Appearance Cloudy A (Clear) Urine pH 7.0 (4.5-7.5) Ur Specific [place] 1.015 (1.000-1.030) Urine Protein 1+ H (Negative) Urine Glucose (UA) Negative (Negative) Diagnostic Findings Chest X-Ray 11/03/24 16:38 REASON FOR EXAM: The patient is 79 years old presenting with a history of altered mental status. HISTORY: Mental status EXAM: Portable chest Previous: 09/24/2024 FINDINGS: Cardiac size is normal. Lungs show no acute infiltrate, collapse or edema. Left cardiophrenic thickening is chronic and definitely represents fat pad. IMPRESSION: Stable appearance without acute disease seen at this time. Electronically signed by Hawk Sheth 11-03-2024 5:[address] 11/03/24 16:38 CT head without contrast History: Confusion Comparison: None Technique: Using multidetector thin collimation helical acquisition technique, axial, coronal and sagittal CT images from the skull base to the vertex were obtained without intravenous contrast. Dose reduction techniques were achieved by using automatic exposure control and/or adjustment of mA and/or kV according to patient size and/or use of iterative reconstruction technique. Findings: No intracranial hemorrhage, mass-effect, or midline shift. The ventricles are proportionate to the cerebral sulci. The brantley to white matter differentiation of the cerebral hemispheres is preserved. The basal cisterns are patent. Marked cerebral atrophy. The visualized paranasal sinuses are clear. Mastoid air cells are clear. Impression: No acute intracranial pathology. Marked cerebral atrophy. Electronically signed by Dequan Montgomery 11-03-2024 5:02 PM Supervising Physician Co-Signing Physician Notes I have seen and discussed the case with the collaborating advanced practitioner. I agree with the above H&P. I have reviewed and confirmed the patients medical history, the findings on physical examination, and the patients diagnosis and treatment plan with Roxana MONROY and agree with the information documented. In short, Mr. 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 Patient with no clear concerns at bedside, reports some SOB, but appears comfortable and in no distress. GENERAL APPEARANCE: AxOx2, generally well-appearing, though chronically ill gentleman, no acute distress. HEENT: NC, AT. MMM. EOMI, clear conjunctiva, oropharynx clear. NECK: Supple without lymphadenopathy. No stiffness or restricted ROM. HEART: Normal rate and regular rhythm, normal S1/S1, no m/r/g LUNGS: CTAB, moving air well. No crackles or wheezes are heard. ABDOMEN: Soft, nontender, nondistended with good bowel sounds heard. BACK: No CVAT, no obvious deformity. EXTREMITIES: Without cyanosis, clubbing. RLE chronic swelling, chronic skin changes, LLE without swelling NEUROLOGICAL: Grossly nonfocal. Alert and oriented, moving all 4 extremities. CN not formally tested but appear grossly intact Skin: Warm and dry without any rash. : #Chronic, intermittent hematuria #Chronic indwelling tatum #Bladder cancer s/p jackie Has only followed with Dr. Prado once 02/2024, has seen 2 other urologist UA with chronic colonization likely--abx given in ed; can follow up culture and would recommend strongly to discontinue abx if similar microbes, is persistent for abx at this time no wbc, no renal dysfunction seemingly good mentation and improved mobility at home No medical need for Urology consult--would recommend OP urology and follow #Idiopathic postural hypotension #ACTH deficiency continue midodrine, fludrocortisone, and hydrocortisone #Chronic RLE edema with history of DVT IVC filter in place 07/01/2024, 09/06/2023, 12/26/2022 no longer on AC 2/2 history of radiation cystitis/hematuria rest of plan as above I spent a total of 20 minutes coordinating, documenting, and providing care for this patient excluding time spent in the performance of separately billed services. All of the aforementioned completed outside of collaborating with the assigned advanced practitioner for a full treatment plan. I have reviewed the advanced practitioner's documentation, and I agree with, and take responsibility for the plan of care
--- NOTE | 2024-11-03 17:54 | XRay Report ---
REASON FOR EXAM: The patient is 79 years old presenting with a history of altered mental status. HISTORY: Mental status EXAM: Portable chest Previous: 09/24/2024 FINDINGS: Cardiac size is normal. Lungs show no acute infiltrate, collapse or edema. Left cardiophrenic thickening is chronic and definitely represents fat pad. IMPRESSION: Stable appearance without acute disease seen at this time. Electronically signed by Hawk Sheth 11-03-2024 5:53 PM
[2024-11-03] MEDS: SODIUM CHLORIDE 0.9% 500 ML IV SCH (18:02)
[2024-11-03] MEDS: HYDROCORTISONE 10 MG TAB PO ONE (18:37)
[2024-11-03 21:11] LABS: Influenza A virus by PCR Negative (Neg); Influenza B virus by PCR Negative (Neg); RSV by PCR Negative (Neg); SARS CoV2 RNA(COVID-19) Ceph NEGATIVE (Negative)
[2024-11-03] MEDS ORDERED: ONDANSETRON INJ 2 MG/ML 2 ML VIAL IV PRN (21:40)
[2024-11-03] MEDS ORDERED: ALBUTEROL HFA 8 GM INHALER INH PRN (21:40)
[2024-11-03] MEDS ORDERED: POLYETHYLENE (MIRALAX) 17 GM PACK PO PRN (21:40)
--- NOTE | 2024-11-03 22:22 | Emergency Department Note ---
History of Present Illness General Chief complaint: Confusion Stated complaint: POSSIBLE UTI, Time Seen by Provider: 11/03/24 16:03 Source: family () History of Present Illness Provider complaint: Confusion UTI Maximum Pain Intensity: 2 71-year-old male presents emergency department with for confusion weakness. reports no falls or traumas. reports she is concerned the patient has a UTI. No fevers. Patient has history of dementia and the history is given by the . Home Medications Medication Instructions Recorded Confirmed Type acetaminophen 325 mg tablet 650 mg (2 x 325 mg) PO Q4H PRN 06/08/24 11/03/24 Rx fever or pain #30 tabs ascorbic acid (vitamin C) 1,000 mg 1,000 mg PO DAILY #30 tabs 06/08/24 11/03/24 Rx tablet cholecalciferol (vitamin D3) 125 125 mcg PO DAILY #30 tabs 06/08/24 11/03/24 Rx mcg (5,000 unit) tablet (Vitamin D3) cyanocobalamin (vitamin B-12) 1,000 mcg PO DAILY #30 tabs 06/08/24 11/03/24 Rx 1,000 mcg tablet epinephrine 0.3 mg/0.3 mL 0.3 mg (0.3 mL) IM UD PRN 06/08/24 11/03/24 Rx injection, auto-injector Anaphylaxis #3 ea fluticasone fur. 200 mcg-umeclid 1 inh inhalation DAILY #1 ea 06/08/24 11/03/24 Rx 62.5 mcg-vilant 25 mcg inhalat.powder (Trelegy Ellipta) lidocaine 5 % topical patch 2 patch transdermal DAILY #20 ea 06/08/24 11/03/24 Rx memantine 10 mg tablet 10 mg PO BID #60 tabs 06/08/24 11/03/24 Rx multivitamin with minerals-folic 1 tab PO DAILY #30 tabs 06/08/24 11/03/24 Rx acid 200 mcg chewable tablet (Multivitamin Gummies) omeprazole 20 mg capsule,delayed 20 mg PO DAILY #30 caps 06/08/24 11/03/24 Rx release solifenacin 5 mg tablet 5 mg PO DAILY #30 tabs 06/08/24 11/03/24 Rx hydrocortisone 10 mg tablet 20 mg (2 x 10 mg) PO QAM #0 tabs 07/07/24 11/03/24 Rx (Cortef) mirabegron 25 mg tablet,extended 25 mg PO DAILY 07/28/24 11/03/24 History release 24 hr (Myrbetriq) albuterol sulfate 90 mcg/actuation 2 puff inhalation Q6H PRN 08/21/24 11/03/24 History aerosol inhaler Shortness Of Breath Or Wheezing fludrocortisone 0.1 mg tablet 0.1 mg PO DAILY 08/21/24 11/03/24 History ferrous sulfate 325 mg (65 mg 325 mg PO 3XWK 11/03/24 11/03/24 History iron) tablet,delayed release hydrocortisone 10 mg tablet 10 mg PO .DAILY @ 1500 11/03/24 11/03/24 History (Cortef) magnesium chloride 64 mg 64 mg PO DAILY 11/03/24 11/03/24 History (magnesium chloride) tablet,delayed release Allergies Allergy/AdvReac Type Severity Reaction Status Date / Time Iodinated Contrast Media Allergy Severe LOVERSOL---CARDIAC Verified 11/03/24 17:[address] CONTRAST clindamycin Allergy Intermediate Rash Verified 11/03/24 17:28 cranberry Allergy Unknown Unknown Verified 11/03/24 17:28 chocolate flavor AdvReac Severe DIARRHEA/ Verified 11/03/24 17:28 Cannot take, interacts w/ medications. pembrolizumab [From [facility]] AdvReac Intermediate myocarditis Verified 11/03/24 17:28 Past Med/Surg History Problem List (Updated 11/03/24 @ 22:29 by Jalen Brooks MD) Acute UTI (Acute) Confusion Aspiration pneumonia Chronic indwelling Devlin catheter (Acute) Complicated urinary tract infection (Acute) Dementia (Acute) Acute kidney injury superimposed on chronic kidney disease (Acute) Parainfluenza infection (Acute) Influenza A (H1N1) (Acute) Acute hypokalemia (Acute) Delirium Chronic indwelling Devlin catheter (Acute) Mild cognitive impairment Hx of prostatic malignancy ~ 2013- s/p Lupron and XRT Obstructive sleep apnea (Acute) Adrenal insufficiency (Acute 06/04/14) Bladder cancer (Acute) Stage 3 chronic kidney disease (Acute) History of pulmonary embolism hx "many years ago" unknown etiology Aortic stenosis Mild per 12/2022 ECHO -follows annually with cardiology Medical History Weakness Recurrent UTI Anxiety Elevated blood pressure reading Complicated UTI (urinary tract infection) Myocarditis Primary bladder malignant neoplasm Orthostatic hypotension Coagulopathy History of DVT (deep vein thrombosis) hx "many years ago" unknown etiology acute on chronic DVT during 12/2022 [facility] admission- Coumadin d/c'ed due to anemia and hematuria; IVC filter placed 12/28/22 COPD (chronic obstructive pulmonary disease) well controlled. uses Breo daily with exercise Fracture of multiple teeth Sacral pressure sore Ambulatory dysfunction Anemia Urethral stricture Ascending aorta dilation Mild- 4.4cm per 11/2022 ECHO Obesity Venous insufficiency (chronic) (peripheral) Radiation cystitis Kidney stones x1 episode. no surgery needed. Cardiac arrest hx r/t IV Contrast Dye "many years ago" Allergic rhinitis Contrast media allergy Hiatal hernia Surgical History S/P IVC filter S/P cataract extraction History of right cataract extraction History of colonoscopy H/O sinus surgery History of appendectomy S/P TURP (status post transurethral resection of prostate) Status post cystoscopy (11/07/13) Family History Father Prostate cancer Brother Prostate cancer Mother Thyroid cancer Cancer Other No family history of adverse response to anesthesia Social History Smoking Status: Never smoker Tobacco Type: Cigarettes Second Hand Exposure: Yes; Do You Dip or Chew Tobacco: No; Hx Alcohol Use: No Hx Substance Use: No Preferred Language: Comoran Communication Ability: Effective Visual Impairment: Limited Hearing Ability: Normal Harness Inspector Required: No Beliefs That Will Affect Care: None marital status: Current Living Situation: Spouse Current Living Situation Comment: [place] current occupational status: retired How many Children do You have: 0 Feels Safe at Home: Yes Diet: regular during the past year weight has: decreased > 10 lbs Seatbelt Use: always Do you think of yourself as: straight/heterosexual Gender Identity: Male Assistive Devices: Bedside Commode, Hospital Bed, Walker and Other Physical Exam Vital Signs Vital Signs - 24 hr 11/03/24 13:40 11/03/24 16:40 11/03/24 16:54 Temperature 36.2 C L Temperature Source Temporal Artery Scan Pulse Rate 78 66 Pulse Rate [Left Finger] 67 Respiratory Rate 20 18 Respiratory Effort / Characteristics Non-Labored Spontaneous Respiratory Depth Normal Blood Pressure 132/88 Blood Pressure [Left Arm] 134/76 Blood Pressure Mean 102 Blood Pressure Mean [Left Arm] 95 Pulse Oximetry 100 100 Oxygen Delivery Method Room Air Sepsis Recent Fever Within 48 Hours No Sepsis New/Unexplained Change in Mental Status N/A Sepsis Action Taken by Nursing No Action Required Physical Exam HENT: Exam performed. - Head: Normocephalic and atraumatic. EYES: Conjunctivae and EOM are normal. Right eye exhibits no discharge. Left eye exhibits no discharge. No scleral icterus. NECK: Normal range of motion. Neck supple. No JVD present. CV: Normal rate, regular rhythm, heart murmur present and intact distal pulses. There is no peripheral edema. Palpable radial pulses bue. PULM/CHEST: Effort normal and breath sounds normal. No respiratory distress. No stridor. no wheezes. no rales. ABD: The abdomen is soft. There is no tenderness. : Devlin catheter present. NEURO: Motor and sensation grossly intact. SKIN: Skin is warm and dry. He is not diaphoretic. Course Course 1603: The patient was evaluated in room C7. A complete history and physical exam was performed 1720: Vital signs stable. Labs are unremarkable. Urinalysis is infected. Imaging is unremarkable. Spoke with pharmacy and they recommend treating the patient with Zosyn based off his previous cultures. Patient will be admitted to the [facility]ist team Dr. Millan. Administered Medications Discontinued Medications Hydrocortisone (Hydrocortisone 10 Mg Tab) 10 mg PO ONE ONE Stop: 11/03/24 18:22 Last Admin: 11/03/24 18:37 Dose: 10 mg Documented By: MARCY Piperacillin Sod/Tazobactam Sod (Zosyn) 4.5 gm in 120 mls @ 240 mls/hr IV NOW ONE Stop: 11/03/24 17:06 Last Infusion: 11/03/24 17:30 Dose: Infused Documented By: Admin: 11/03/24 16:56 Dose: 240 mls/hr Documented By: MARCY Sodium Chloride (Nss) 500 mls @ 125 mls/hr IV .Q4H TAWNY Stop: 11/03/24 21:29 Last Admin: 11/03/24 18:02 Dose: Not Given Documented By: MARCY Medical Decision Making Medical Records Attestation: I reviewed the patient's medical records. External medical records reviewed. Urine culture from August 2024 showed Klebsiella and Enterococcus faecalis. Laboratory Data Attestation: I reviewed the patient's lab results. 11/03/24 13:50 11/03/24 13:50 Lab Results 11/03/24 Range/Units 13:50 WBC 7.78 (4.8-10.8) K/ul RBC 4.55 L (4.70-6.10) M/uL Hgb 13.0 L (14.0-18.0) g/dl Hct 40.1 L (42.0-52.0) % MCV 88.1 (80.0-100.0) fL MCH 28.6 (25.0-34.0) pg MCHC 32.4 (32.0-36.0) g/dL RDW Std Deviation 52.3 H (36.4-46.3) fL RDW Coeff of Robert 16.1 H (11.5-14.5) % Plt Count 227 (130-400) K/uL MPV 9.0 L (9.4-12.4) fL Immature Gran % (Auto) 0.1 % Neut % (Auto) 69.0 % Lymph % (Auto) 21.5 % [place] % (Auto) 6.9 % Eos % (Auto) 1.9 % Baso % (Auto) 0.6 % Neut # (Auto) 5.36 (1.40-6.50) K/uL Lymph # (Auto) 1.67 (1.20-3.40) K/uL [place] # (Auto) 0.54 (0.11-0.59) K/uL Eos # (Auto) 0.15 (0.00-0.50) K/uL Baso # (Auto) 0.05 (0.00-0.20) K/uL Immature Gran # (Auto) 0.01 (0.01-0.20) K/uL Sodium 138 (136-145) mmol/L Potassium 3.9 (3.5-5.1) mmol/L Chloride 107 (98-107) mmol/L Carbon Dioxide 29 (21-32) mmol/L Anion Gap 2 L (3-11) BUN 20 (6-23) mg/dl Creatinine 1.18 (0.6-1.4) mg/dl Est Cr Clr Drug Dosing Not Reportable eGFR 63.16 BUN/Creatinine Ratio 16.9 (10-20) Glucose 108 H (70-99(Fasting)) mg/dl Calcium 9.0 (8.6-10.3) mg/dl Total Bilirubin 0.4 (0.2-1.0) mg/dl AST 15 (13-39) U/L ALT 7 (7-52) U/L Alkaline Phosphatase 97 (34-104) U/L Total Protein 6.5 (6.0-8.3) gm/dl Albumin 3.8 (3.4-5.0) gm/dl Globulin 2.7 (2.5-4.0) gm/dl Albumin/Globulin Ratio 1.4 (0.9-2) Urine Color Yellow Urine Appearance Cloudy A (Clear) Urine pH 7.0 (4.5-7.5) Ur Specific [place] 1.015 (1.000-1.030) Urine Protein 1+ H (Negative) Urine Glucose (UA) Negative (Negative) Urine Ketones Negative (Negative) Urine Blood 2+ H (Negative) Urine Nitrite Negative (Negative) Urine Bilirubin Negative (Negative) Urine Urobilinogen Negative (Negative) Ur Leukocyte Esterase 3+ H (Negative) Urine WBC (Auto) >50 H (0-5) /hpf Urine RBC (Auto) >20 H (0-2) /hpf U Hyaline Cast (Auto) 6-10 H (0-2) /lpf U Epithel Cells (Auto) 0-2 (0-2) /hpf Urine Bacteria (Auto) 3+ H (None Seen) Imaging Data Attestation: I personally reviewed and interpreted this imaging study as follows: My Impression: Chest x-ray negative. Airway clear. No pneumothorax. No consolidation. No cardiomegaly or cephalization.. No free air under the diaphragm. No fractures of the skeletal structures. Radiologist's Impression: Chest X-Ray 11/03/24 16:38 REASON FOR EXAM: The patient is 79 years old presenting with a history of altered mental status. HISTORY: Mental status EXAM: Portable chest Previous: 09/24/2024 FINDINGS: Cardiac size is normal. Lungs show no acute infiltrate, collapse or edema. Left cardiophrenic thickening is chronic and definitely represents fat pad. IMPRESSION: Stable appearance without acute disease seen at this time. Electronically signed by Hawk Sheth 11-03-2024 5:[address] 11/03/24 16:38 CT head without contrast History: Confusion Comparison: None Technique: Using multidetector thin collimation helical acquisition technique, axial, coronal and sagittal CT images from the skull base to the vertex were obtained without intravenous contrast. Dose reduction techniques were achieved by using automatic exposure control and/or adjustment of mA and/or kV according to patient size and/or use of iterative reconstruction technique. Findings: No intracranial hemorrhage, mass-effect, or midline shift. The ventricles are proportionate to the cerebral sulci. The brantley to white matter differentiation of the cerebral hemispheres is preserved. The basal cisterns are patent. Marked cerebral atrophy. The visualized paranasal sinuses are clear. Mastoid air cells are clear. Impression: No acute intracranial pathology. Marked cerebral atrophy. Electronically signed by Dequan Montgomery 11-03-2024 5:02 PM [facility] Narrative 1603: The patient was evaluated in room C7. A complete history and physical exam was performed 1720: Vital signs stable. Labs are unremarkable. Urinalysis is infected. Imaging is unremarkable. Spoke with pharmacy and they recommend treating the patient with Zosyn based off his previous cultures. Patient will be admitted to the [facility]ist team Dr. Millan. Impression & Plan Acute UTI Discharge Plan Visit Data Chief Complaint: Confusion Stated Complaint: POSSIBLE UTI, ED Provider: Jalen Brooks Discharge Problem: Acute UTI Patient Disposition: Admitted As Inpatient Discharge Instructions Interventions: ED Discharge Assessment Last Done: 11/03/24 21:06
[2024-11-03] MEDS: PIPERACILLIN/TAZOBACTAM 4.5 GM/100 ML BAG IV SCH (23:26)
[2024-11-03] MEDS: MEMANTINE HCL 10 MG TAB PO SCH (23:27)
--- OUTSIDE RECORDS SUMMARY | 2024-11-04 01:23 | External Medical Summary | Summary of Care ---
Author Name Unknown Organization [facility] Address [address] [facility] [address] Phone [phone] Care Team Providers Care Drawing In Machine Tender Name Role Phone Chuy Batista MD Primary Care Provider [phone]- [phone] Encounter Details Date Type Department Care Team (Late st Contact Info) Description 11/03/2024 Telephone Urology, [facility] [address] [facility] [place] [phone] Kate Chakraborty LPN Allergies Active Allergy Reactions Criticality Noted Date Comments Chocolate Diarrhea 05/14/2023 Chocolate Flavoring Agent (Non-Screening) High 10/09/2023 Other Reaction(s): DIARRHEA/ Cannot take, interacts w/ medications. Clindamycin Hcl 09/24/2005 rash Cranberry 10/20/2023 Iodinated Contrast Media 10/01/2015 Ioversol Other (Please comment) High 08/10/[address] IV DYE Pembrolizumab High 10/10/2023 Other Reaction(s): myocarditis documented as of this encounter (statuses as of 11/03/2024) Medications Syringe/Needle, Disp, 25G X 1-1/2" 3 ML MISC To use with injection of hydrocortisone if needed 2 Each 5 08/31/19 16 Active Additional Information Patient not taking.Reported on 07/24/2024 Breo Ellipta 200-25 MCG/ACT Inhalation Aerosol Powder Breath Activated (fluticasone furoate-vilantero l) INHALE 1 PUFF BY MOUTH EVERY DAY 180 Each 3 03/14/20 24 Active Trelegy Ellipta 200-62.5-25 MCG/ACT Aerosol Powder Breath Activated (Fluticasone-Umec lidinium-Vilanter ol) Inhale 1 Puff by mouth every evening. 60 Blister Dosing Unit 11 10/27/19 23 Active EpiPen 2-Pedro 0.3 MG/0.3ML Injection Solution Auto-injectorIndi cations:Anaphylax is, sequela USE DIRECTED 1 Each 01/28/20 23 Active Multi Adult Gummies Oral Tablet Chewable Take by mouth. Active Iron 325 (65 Fe) MG Oral Tablet Take 1 Tablet by mouth in the morning. Active Acetaminophen 325 MG Oral Capsule Take 650 mg by mouth every 4 hours as needed for Pain (fever or pain). Active Ascorbic Acid 500 MG Oral Tablet Take 2 Tablets by mouth every morning. Active polyethylene glycol 3350 119 gram OR POWD Take 119 g by mouth once. Active Medihoney Wound/Burn Dressing External GelIndications:Pr essure injury of sacral region, stage 2 (HCC) Apply topically to affected area daily. Apply to pressure ulcer of buttocks. 88 mL 3 11/12/19 24 Active Additional Information Patient not taking.Reported on 07/24/2024 B Complex Oral Capsule Take 1 Capsule by mouth in the morning. Active Aspirin 81 MG Oral Tablet Delayed Release (Aspirin 81) Take 1 Tablet by mouth in the morning. Active B-12 1000 MCG Oral Tablet Take by mouth daily. Active Fleet Enema 7-19 GM/118ML Rectal Enema Administer 1 Enema into the rectum as needed for Constipation. Active Magnesium Chloride 64 MG Oral Tablet Take by mouth. Act anthony Magnesium Hydroxide 400 MG/5ML Oral Suspension (Milk of Magnesia) Take 30 mL by mouth as needed for Constipation. Active Fludrocortisone Acetate 0.1 MG Oral Tablet [...] afternoon 90 Tablet 5 07/24/20 24 Active Escitalopram Oxalate 5 MG Oral Tablet [...] morning. 30 Tablet 5 07/24/20 24 Active Additional Information Patient not taking.Reported on 10/13/2024 Memantine HCl 10 MG Oral Tablet (Namenda) [...] pain 90 Tablet 1 09/08/19 25 Active Solifenacin Succinate 5 MG Oral Tablet (VESIcare) Take 1 Tablet by mouth in the morning. 30 Tablet 6 09/28/19 25 Active Fluticasone Propionate 50 MCG/ACT Nasal Suspension (Flonase) Administer 2 Sprays into nostril in the morning. 16 mL 3 09/28/19 25 Active Vitamin E 400 UNIT Oral Capsule (Aquasol E) Take 1 Capsule by mouth in the morning. Active documented as of this encounter (statuses as of 11/03/2024) Active Problems Problem Noted Date Diagnosed Date [...] as of this encounter (statuses as of 11/03/2024) Resolved Problems Problem Noted Date Diagnosed Date [...] as of this encounter (statuses as of 11/03/2024) Immunizations Name Administration Dates Next Due COVID-19 mRNA, LNP-s, No Pre serve, 2-Dose Series (Otto Clave) 05/30/2021,10/29/2020,10/08/2020 COVID-19, LNP-s, No Preserve , Prosper-sucrose, [...] ages 0-17 years) Not on file 12/27/2023 Food Insecurity Answer Date Recorded Within the past 12 months, y ou worried that your food would run out before you got the money to buy more. Patient declined Within the past 12 months, t he food you bought just didn't last and you didn't have money to get more. Patient declined Do you need food for this week? No 12/27/2023 Sex and Gender Information Value Date [...] encounter Miscellaneous Notes * Telephone Encounter - Kate Chakraborty LPN - 11/03/2024 9:23 AM EDT Patients calling in concerned for UTI. Patient has last seen by Lauren. She is requesting patient be seen today if possible. She notes he has confusion, and a foul odor to his urine. Would youlike to order a urine culture at this time? Cystoscopy next available? She states she will not return to [facility] for their urology services. Please advise. [phone] documented in this encounter Plan of Treatment Upcoming Encounters Date Type Department Care Team (Late st Contact Info) Description 11/10/2024 12:30 PM EDT Imaging Radiology [facility] [facility] [address] [place] [phone] 12/08/2024 1:00 PM EDT Cardiac Studies Cardiac Studies, Valarie Ybarra [address] [place] [phone] 01/03/2025 3:00 PM EDT Procedure Only Urology Miri Orozco [address] [place] [address] Willi Smith Jr., MD [address] [place] [address] 01/10/2025 9:30 AM EDT Office Visit Hematology/Oncology [facility] [place] [phone] Xavi Gramajo MD [address] [place] [address] 05/22/2025 10:45 AM EDT Office Visit Urology, [facility] [address] [place] [phone] Valdemar Prado MD [address] [place] [id number] Health Maintenance Due Date Last Done Comments Albumin/Creatinine Ratio 1963 DTap/Tdap Vaccines (1 - Tdap) 1964 Adult Wellness Visit 02/01/2020 01/31/2019 CKD PHOS USE SMARTSET 01011 09/11/202408/17, 09/11/2023, 07/14/2021, Additional history exists COVID-19 Vaccine ( season) 2024 08/11/2024, 07/22/2022, 07/22/2022, Additional history exists Depression Screening 12/26/2024 12/27/2023 GFR 04/12/2025 10/13/2024, 12/04/2024, 04/12/2024, Additional history exists CKD HGB USE SMARTSET 29125 10/13/202510/13, 10/13/2024, 07/24/2024, Additional history exists Pneumococcal Vaccine: 50+ Years [...] on patient's age to complete this topic Meningitis B Vaccine (Bexsero/Trumemba) Aged Out No longer eligible based on [...] Power of Attor philipp? No Care Teams Drawing In Machine Tender Relationship Specialty Start Date End Date Chuy Batista MD [address] [place] [address] PCP - General Family Medicine 09/14/24 documented as of this encounter
--- OUTSIDE RECORDS SUMMARY | 2024-11-04 01:24 | External Medical Summary | Summary of Care ---
Author Name Unknown Organization [facility] Address [address] [place] [address] Phone [phone] Care Team Providers Care Freight Broker Agent Name Role Phone Chuy Batista MD Primary Care Provider +1- [phone] Reason for Referral * Evaluate & Treat - Unlimited Visits (Within 10 days (routine)) - Authorized Specialty Diagnoses / Procedures Referred By Monik de leon Referred To Contact Physical Therapy / Physical Medicine And Rehab Diagnoses Ambulatory dysfunction Chuy Batista MD [address] [place] [address] Phone: tel: fax: Referral ID Status Reason Start Date Expiration Date Visits Requested Visits Authorized [id number] Authorized Specialty Services Required 10/23/[phone] Question Answer Referral Priority Within 10 days (routine) Where should this appointment be scheduled? [facility] Encounter Details Date Type Department Care Team (Late st Contact Info) Description 10/23/2024 Telephone [facility] [address] [facility] [place] [phone] Chuy Batista MD [address] [facility] [place] [address] Allergies [...] as of this encounter (statuses as of 10/24/2024) Medications Syringe/Needle, Disp, 25G X 1-1/2" 3 [...] as of this encounter (statuses as of 10/24/2024) Active Problems Problem Noted Date Diagnosed Date [...] as of this encounter (statuses as of 10/24/2024) Resolved Problems Problem Noted Date Diagnosed Date [...] as of this encounter (statuses as of 10/24/2024) Immunizations Name Administration Dates Next Due COVID-19 mRNA, LNP-s, No Pre serve, 2-Dose Series (Codefast) 05/30/2021,10/29/2020,10/08/2020 COVID-19, LNP-s, No Preserve , Prosper-sucrose, [...] No 12/27/2023 Does the household have a [facility] source of income? (Household - [...] Telephone Encounter - Ania Neal OSA - 10/24/2024 8:30 AM EDT Faxed. 10/24/2024 * Telephone Encounter - Chuy Batista MD - 10/24/2024 8:04 AM EDT Please fax if not already done * Telephone Encounter - Alisia Gould OSA - 10/23/2024 10:36 AM EDT Pt's came in today stating that the pt's home health ended and that the pt needed a new physical therapy referral for [facility]. The [facility] was already [facility] but the referral ran out so the pt needs a new one. The pt's would like this done as soon as possible. The pt's would like to be called once the referrals are in and we are able to fax them. documented in this encounter Plan of Treatment Upcoming Encounters Date Type Department Care Team (Late st Contact Info) Description 10/27/2024 12:00 PM EDT Cardiac Studies Cardiac Studies, [address] [place] [phone] 11/10/2024 12:30 PM EDT Imaging Radiology [address] [place] [phone] 01/10/2025 9:30 AM EDT Office Visit Hematology/Oncology [facility] [place] [phone] Xavi Gramajo MD [address] [facility] [place] [address] 05/22/2025 10:45 AM EDT Office Visit Urology, [facility] [address] [place] [address] Valdemar Prado MD [address] [place] [address] Scheduled Referrals Name Type Priority Associated Diagnoses Orde r Schedule PHYSICAL THERAPY REFERRAL OP Referral Within 10 days (routine) Ambulatory dysfunction Ordered: 10/23/2024 Health Maintenance Due Date Last Done Comments Albumin/Creatinine Ratio 1963 DTap/Tdap Vaccines (1 - Tdap) 1964 Adult Wellness Visit 02/01/2020 01/31/2019 CKD PHOS USE SMARTSET 69829 09/11/202408/17, 09/11/2023, 07/14/2021, Additional history exists COVID-19 Vaccine ( season) 2024 08/11/2024, 07/22/2022, 07/22/2022, Additional history exists Depression Screening 12/26/2024 12/27/2023 GFR 04/12/2025 10/13/2024, 12/04/2024, 04/12/2024, Additional history exists CKD HGB USE SMARTSET 07582 10/13/202510/13, 10/13/2024, 07/24/2024, Additional history exists Pneumococcal [...] as of this encounter Visit Diagnoses Diagnosis Ambulatory dysfunction- Primary documented in this encounter Advance Directives [...] Power of Attor philipp? No Care Teams Freight Broker Agent Relationship Specialty Start Date End Date Chuy Batista MD [address] [place] [address] PCP - General Family Medicine 09/14/24 documented as of this encounter
--- OUTSIDE RECORDS SUMMARY | 2024-11-04 01:24 | External Medical Summary | Summary of Care ---
Author Name Unknown Organization [facility] Address [address] [place] [address] Phone [phone] Care Team Providers Care Space Controller Name Role Phone Chuy Batista MD Primary Care Provider +1- [phone] Reason for Visit * Reason Onset Date Comments Referral 10/23/2024 Encounter Details Date Type Department Care Team (Late st Contact Info) Description 10/23/2024 Telephone [facility] [place] [facility] [place] [address] Chuy Batista MD 226 [facility] [place] [address] Referral Allergies Active Allergy Reactions Criticality [...] mRNA, LNP-s, No Pre serve, 2-Dose Series ([employer]) 05/30/2021,10/29/2020,10/08/2020 COVID-19, LNP-s, No Preserve , Prosper-sucrose, [...] Encounter - Ania Neal OSA - 10/24/2024 8:31 AM EDT Faxed. 10/24/2024 * Telephone Encounter - Brittany Guan OSA - 10/23/2024 8:30 AM EDT Has the patient been seen for this problem? (Y/N)?: Y If No, an appt needs to be scheduled before a referral will be placed (exception: proceed with referral request if referral request is for a yearly routine appointment with speciality) Patient Name: Branden High Patient Primary care provider: Chuy Batista MD Does this need to be an insurance referral (Y/N)?: Y If Yes, does the insurance referral need to be placed into the [employer] system? Name of preferred specialist: [facility] Type of specialist: Physical Therapy Location of specialist: n/a Specialist's Phone #: n/a Specialist's Fax #: [phone] Reason for visit: PT and OT Date of visit: quincy Would like to have this done and faxed over today if possible. documented in this encounter Plan of Treatment Upcoming Encounters Date Type Department Care Team (Late st Contact Info) Description 10/27/2024 12:00 PM EDT Cardiac Studies [address] [place] [address] 11/10/2024 12:30 PM EDT Imaging Radiology [address], [place] [address] [place] [phone] 01/10/2025 9:30 AM EDT Office Visit Hematology/Oncology Steph Bacon [place] [address] [place] [phone] Xavi Gramajo MD [address] [place] [address] 05/22/2025 10:45 AM EDT Office Visit Urology, [facility] [address] [place] [address] Valdemar Prado MD [address] [place] [address] Health Maintenance Due Date Last Done Comments Albumin/Creatinine Ratio 1963 DTap/Tdap Vaccines (1 - Tdap) 1964 Adult Wellness Visit 02/01/2020 01/31/2019 CKD PHOS USE SMARTSET 87156 09/11/202408/17, 09/11/2023, 07/14/2021, Additional history exists COVID-19 Vaccine ( season) 2024 08/11/2024, 07/22/2022, 07/22/2022, Additional history exists Depression Screening 12/26/2024 12/27/2023 GFR 04/12/2025 10/13/2024, 12/04/2024, 04/12/2024, Additional history exists CKD HGB USE SMARTSET 81973 10/13/202510/13, 10/13/2024, 07/24/2024, Additional history exists Pneumococcal [...] Power of Attor philipp? No Care Teams Space Controller Relationship Specialty Start Date End Date Chuy Batista MD [address] [place] [address] PCP - General Family Medicine 09/14/24 documented as of this encounter
--- OUTSIDE RECORDS SUMMARY | 2024-11-04 01:24 | External Medical Summary | Summary of Care ---
Author Name Unknown Organization [facility] Address [address] [place] [address] Phone [phone] Care Team Providers Care Quality Assurance Inspector Name Role Phone Chuy Batista MD Primary Care Provider +1- [phone] Reason for Referral * Evaluate & Treat - Unlimited Visits (Within 3 days (urgent)) - Authorized Specialty Diagnoses / Procedures Referred By Monik de leon Referred To Contact Occupational Medicine / Occupational Therapy Diagnoses Ambulatory dysfunction Elena Ashley MD [address] [place] [address] Phone: tel: fax: Referral ID Status Reason Start Date Expiration Date Visits Requested Visits Authorized [id number] Authorized Specialty Services Required 10/24/2024 999 999 Question Answer Referral Priority Within 3 days (urgent) Where should this appointment be scheduled? [facility] Reason for Visit * Reason Onset Date Comments Referral 10/23/2024 Encounter Details Date Type Department Care Team (Late st Contact Info) Description 10/23/2024 Telephone [facility] [place] [address] [place] [address] Chuy Batista MD [address] [place] [address] Referral Allergies Active Allergy Reactions Criticality Noted Date Comments Chocolate Diarrhea 05/14/2023 Chocolate Flavoring Agent (Non-Screening) High 10/09/2023 Other Reaction(s): DIARRHEA/ Cannot take, interacts w/ medications. Clindamycin Hcl 09/24/2005 rash Cranberry 10/20/2023 Iodinated Contrast Media 10/01/2015 Ioversol Other (Please comment) High 08/10/[address] IV DYE Pembrolizumab High 10/10/2023 Other Reaction(s): myocarditis documented as of this encounter (statuses as of 10/25/2024) Medications Syringe/Needle, Disp, 25G X 1-1/2" 3 [...] as of this encounter (statuses as of 10/25/2024) Active Problems Problem Noted Date Diagnosed Date [...] as of this encounter (statuses as of 10/25/2024) Resolved Problems Problem Noted Date Diagnosed Date [...] as of this encounter (statuses as of 10/25/2024) Immunizations Name Administration Dates Next Due COVID-19 mRNA, LNP-s, No Pre serve, 2-Dose Series ([employer]) 05/30/2021,10/29/2020,10/08/2020 COVID-19, LNP-s, No Preserve , Prosper-sucrose, [...] encounter Miscellaneous Notes * Addendum Note - Elena Ashley MD - 10/24/2024 4:55 PM EDTAddended by: ELENA ASHLEY on: 10/24/2024 04:55 PM Modules accepted: Orders * Telephone Encounter - Ania Neal OSA - 10/24/2024 8:31 AM EDT Faxed PT and made patient's aware. She asked if OT order could be placed. Could you place this order as well? 10/24/2024 * Telephone Encounter - Brittany Guan [...] referral need to be placed into the [employer] system? Name of preferred specialist: [facility] Type of specialist: Physical Therapy Location of specialist: n/a Specialist's Phone #: n/a Specialist's Fax #: [phone] Reason for visit: PT and OT Date of visit: quincy Would like to have this done and faxed over today if possible. documented in this encounter Plan of Treatment Upcoming Encounters Date Type Department Care Team (Late st Contact Info) Description 10/27/2024 12:00 PM EDT Cardiac Studies Cardiac Studies, Valarie Ybarra [address] [place] [address] 11/10/2024 12:30 PM EDT Imaging Radiology [facility] [address] [facility] [address] [place] [phone] 01/10/2025 9:30 AM EDT Office Visit Hematology/Oncology [facility] 200 [facility] [place] [phone] Xavi Gramajo MD 200 [facility] [place] [address] 05/22/2025 10:45 AM EDT Office Visit Urology, [facility] [address] [place] [address] Valdemar Prado MD [address] [place] [address] Scheduled Referrals Name Type Priority Associated Diagnoses Orde r Schedule OCCUPATIONAL THERAPY REFERRAL OP Referral Within 3 days (urgent) Ambulatory dysfunction Ordered: 10/24/2024 Health Maintenance Due Date Last Done Comments Albumin/Creatinine Ratio 1963 DTap/Tdap Vaccines (1 - Tdap) 1964 Adult Wellness Visit 02/01/2020 01/31/2019 CKD PHOS USE SMARTSET 13673 09/11/2024 01/02/2024, 09/11/2023, 07/14/2021, Additional history exists COVID-19 Vaccine ( season) 2024 08/11/2024, 07/22/2022, 07/22/2022, Additional history exists Depression Screening 12/26/2024 12/27/2023 GFR 04/12/2025 10/13/2024, 12/04/2024, 04/12/2024, Additional history exists CKD HGB USE SMARTSET 23915 10/13/202510/13, 10/13/2024, 07/24/2024, Additional history exists Pneumococcal [...] Power of Attor philipp? No Care Teams Quality Assurance Inspector Relationship Specialty Start Date End Date Chuy Batista MD [address] [address] PCP - General Family Medicine 09/14/24 documented as of this encounter
--- OUTSIDE RECORDS SUMMARY | 2024-11-04 01:24 | External Medical Summary | Summary of Care ---
Author Name Unknown Organization [facility] Address [address] [place] [address] Phone [phone] Care Team Providers Care Plating Engineer Name Role Phone Chuy Batista MD Primary Care Provider +1- [phone] Reason for Referral * Evaluate & Treat - Unlimited Visits (Within 3 days (urgent)) - Authorized Specialty Diagnoses / Procedures Referred By Monik de leon Referred To Contact Occupational Medicine / Occupational Therapy Diagnoses Ambulatory dysfunction Elena Ashley MD [address] [place] [address] Phone: tel: fax: Referral ID Status Reason Start Date Expiration Date Visits Requested Visits Authorized [id number] Authorized Specialty Services Required 10/24/2024 999 999 Question Answer Referral Priority Within 3 days (urgent) Where should this appointment be scheduled? Radha Reason for Visit * Reason Onset Date Comments Referral 10/23/2024 Encounter Details Date Type Department Care Team (Late st Contact Info) Description 10/23/2024 [facility] [place] [address] [place] [address] Chuy [...] mRNA, LNP-s, No Pre serve, 2-Dose Series ([employer]) 05/30/2021,10/29/2020,10/08/2020 COVID-19, LNP-s, No Preserve , Prosper-sucrose, [...] Entry Date Author Yes 09/12/2023 12:39 AM Eilzabeth Marquez RN documented in this encounter Miscellaneous [...] referral need to be placed into the [employer] system? Name of preferred specialist: [facility] Type of specialist: Physical Therapy Location of specialist: n/a Specialist's Phone #: n/a Specialist's Fax #: [phone] Reason for visit: PT and OT Date of visit: quincy Would like to have this done and faxed over today if possible. documented in this encounter Plan of Treatment Upcoming Encounters Date Type Department Care Team (Late st Contact Info) Description 10/27/2024 12:00 PM EDT Cardiac Studies Cardiac Studies, Valarie Ybarra [address] [place] [address] 11/10/2024 12:30 PM EDT Imaging Radiology [facility] 1st [facility] [address] [place] [address] 01/10/2025 9:30 AM EDT Office Visit Hematology/Oncology [facility] 200 [place] [phone] Xavi Gramajo MD [address] [facility] [place] [address] 05/22/2025 10:45 AM EDT Office Visit Urology, [facility] [address] [place] [address] Valdemar Prado MD [address] [place] [address] Scheduled Referrals Name Type Priority Associated Diagnoses Orde r Schedule OCCUPATIONAL THERAPY REFERRAL OP Referral Within 3 days (urgent) Ambulatory dysfunction Ordered: 10/24/2024 Health Maintenance Due Date Last Done Comments Albumin/Creatinine Ratio 1963 DTap/Tdap Vaccines (1 - Tdap) 1964 Adult Wellness Visit 02/01/2020 01/31/2019 CKD PHOS USE SMARTSET 37071 09/11/2024 01/02/2024, 09/11/2023, 07/14/2021, Additional history exists COVID-19 Vaccine ( season) 2024 08/11/2024, 07/22/2022, 07/22/2022, Additional history exists Depression Screening 12/26/2024 12/27/2023 GFR 04/12/2025 10/13/2024, 12/04/2024, 04/12/2024, Additional history exists CKD HGB USE SMARTSET 38041 10/13/202510/13, 10/13/2024, 07/24/2024, Additional history exists Pneumococcal [...] Power of Attor philipp? No Care Teams Plating Engineer Relationship Specialty Start Date End Date Chuy Batista MD [address] [address] PCP - General Family Medicine 09/14/24 documented as of this encounter
--- OUTSIDE RECORDS SUMMARY | 2024-11-04 01:24 | External Medical Summary | Summary of Care ---
Author Name Unknown Organization [facility] Address [address] [place] [address] Phone [phone] Care Team Providers Care Preparation Plant Supervisor Name Role Phone Chuy Batista MD Primary Care Provider +1- [phone] Reason for Referral * Evaluate & Treat - Unlimited Visits (Within 3 days (urgent)) - Authorized Specialty Diagnoses / Procedures Referred By Monik de leon Referred To Contact Occupational Medicine / Occupational Therapy Diagnoses Ambulatory dysfunction Elena Ashley MD [address] [address] Phone: tel: fax: Referral ID Status Reason Start Date Expiration Date Visits Requested Visits Authorized [id number] Authorized Specialty Services Required 10/24/2024 999 999 Question Answer Referral Priority Within 3 days (urgent) Where should this appointment be scheduled? Radha Reason for Visit * Reason Onset Date Comments Referral 10/23/2024 Encounter Details Date Type Department Care Team (Late st Contact Info) Description 10/23/2024 Telephone [facility] [place] [address] [address] Chuy [...] mRNA, LNP-s, No Pre serve, 2-Dose Series ([employer]) 05/30/2021,10/29/2020,10/08/2020 COVID-19, LNP-s, No Preserve , Prosper-sucrose, [...] Telephone Encounter - Ania Neal OSA - 10/25/2024 10:04 AM EDT Faxed OT referral to [facility] and made patient's aware. 10/25/2024 * Addendum Note - Elena Ashley MD [...] referral need to be placed into the [employer] system? Name of preferred specialist: [facility] Type of specialist: Physical Therapy Location of specialist: n/a Specialist's Phone #: n/a Specialist's Fax #: [phone] Reason for visit: PT and OT Date of visit: quincy Would like to have this done and faxed over today if possible. documented in this encounter Plan of Treatment Upcoming Encounters Date Type Department Care Team (Late st Contact Info) Description 10/27/2024 12:00 PM EDT Cardiac Studies [facility] 226 [facility] [place] [phone] 11/10/2024 12:30 PM EDT Imaging Radiology [address] 132 [facility] [place] [phone] 01/10/2025 9:30 AM EDT Office Visit Hematology/Oncology [facility] [place] [phone] Xavi Gramajo MD 200 [facility] [place] [address] 05/22/2025 10:45 AM EDT Office Visit Urology, [facility] 132 [facility] [place] [address] Valdemar Prado MD [address] [place] [address] Scheduled Referrals Name Type Priority Associated Diagnoses Orde r Schedule OCCUPATIONAL THERAPY REFERRAL OP Referral Within 3 days (urgent) Ambulatory dysfunction Ordered: 10/24/2024 Health Maintenance Due Date Last Done Comments Albumin/Creatinine Ratio 1963 DTap/Tdap Vaccines (1 - Tdap) 1964 Adult Wellness Visit 02/01/2020 01/31/2019 CKD PHOS USE SMARTSET 96813 09/11/202408/17, 09/11/2023, 07/14/2021, Additional history exists COVID-19 Vaccine ( season) 2024 08/11/2024, 07/22/2022, 07/22/2022, Additional history exists Depression Screening 12/26/2024 12/27/2023 GFR 04/12/2025 10/13/2024, 12/04/2024, 04/12/2024, Additional history exists CKD HGB USE SMARTSET 82548 10/13/202510/13, 10/13/2024, 07/24/2024, Additional history exists Pneumococcal [...] Power of Attor philipp? No Care Teams Preparation Plant Supervisor Relationship Specialty Start Date End Date Chuy Batista MD [address] [place] [address] PCP - General Family Medicine 09/14/24 documented as of this encounter
--- OUTSIDE RECORDS SUMMARY | 2024-11-04 01:25 | External Medical Summary | Summary of Care ---
Author Name Unknown Organization [facility] Address [address] [place] [address] Phone [phone] Care Team Providers Care Systems Integration Analyst Name Role Phone Chuy Batista MD Primary Care Provider +1- [phone] Reason for Visit * Reason Onset Date Comments Home Health 07/24/2024 Encounter Details Date Type Department Care Team (Late st Contact Info) Description [facility] [place] [address] Chuy Batista MD [address] [facility] [place] [address] Home Health Allergies Active Allergy Reactions [...] Take 119 g by mouth once. Active [facility] Wound/Burn Dressing External GelIndications:Pr essure injury [...] Assessment Author Yes 09/12/2023 12:39 AM Elizabeth Marquez, RN documented as of this encounter Mental Status * Because of a physical, mental, or emotional condition, do you have serious difficulty concentrating, remembering, or making decisions? (5 years old or older) Answer Entry Date Author Yes 09/12/2023 12:39 AM Elizabeth Marquez RN documented in this encounter Miscellaneous Notes * Telephone Encounter - Damari Benitez LPN - 07/24/2024 11:53 AM EST Admission/Start of Care Admission/Start of Care: Maura BABB, Calling from: [facility] Referral received for: Intermediate, PT, and OT Planned start of care date:Yes, Date 07/23 Vitals: T97.2 P75 RR16 BP120/68 SP O298% ra Narrative: urine was dark yesterday pt was encourage to drink plenty of Pt is due for cath change 08/03 he will need to see Urology for Cath change. They will call with any updates or additional concerns from the upcoming HH visit. Last Office Visit: 07/24/2024 Has patient been scheduled or seen in the office for a follow up visit: Yes- on07/24 Advised that orders will be signed by PCP and to fax to the office for signature. documented in this encounter Plan of Treatment Upcoming Encounters Date Type Department Care Team (Late st Contact Info) Description 10/27/2024 12:00 PM EDT Cardiac Studies Cardiac [address] [place] [phone] 11/10/2024 12:30 PM EDT Imaging Radiology [address] [place] [address] 01/10/2025 9:30 AM EDT Office Visit Hematology/Oncology [facility] 200 [facility] [place] [address] Xavi Gramajo MD 200 [facility] [place] [address] 05/22/2025 10:45 AM EDT Office Visit Urology, [facility] [address] [facility] [place] [address] Valdemar Prado MD [address] [place] [address] Health Maintenance Due Date Last Done Comments Albumin/Creatinine Ratio 1963 DTap/Tdap Vaccines (1 - Tdap) 1964 Adult Wellness Visit 02/01/2020 01/31/2019 CKD PHOS USE SMARTSET 18526 09/11/202408/17, 09/11/2023, 07/14/2021, Additional history exists COVID-19 Vaccine ( season) 2024 08/11/2024, 07/22/2022, 07/22/2022, Additional history exists Depression Screening 12/26/2024 12/27/2023 GFR 04/12/2025 10/13/2024, 12/04/2024, 04/12/2024, Additional history exists CKD HGB USE SMARTSET 67087 10/13/202510/13, 10/13/2024, 07/24/2024, Additional history exists Pneumococcal [...] Power of Attor philipp? No Care Teams Systems Integration Analyst Relationship Specialty Start Date End Date Chuy Batista MD [address] [address] PCP - General Family Medicine 09/14/24 documented as of this encounter
--- OUTSIDE RECORDS SUMMARY | 2024-11-04 01:25 | External Medical Summary | Summary of Care ---
Author Name Unknown Organization [facility] Address [address] [place] [address] Phone [phone] Care Team Providers Care Pastry Cook Helper Name Role Phone Chuy Batista MD Primary Care Provider +1- [phone] Reason for Visit * Reason Onset Date Comments Order Request 10/11/2024 Encounter Details Date Type Department Care Team (Late st Contact Info) Description 10/11/2024 [facility] 226 [facility] [place] [address] Chuy Batista MD 226 [place] [address] Order Request Allergies Active Allergy Reactions Criticality Noted Date Comments Chocolate Diarrhea 05/14/2023 Chocolate Flavoring Agent (Non-Screening) High 10/09/2023 Other Reaction(s): DIARRHEA/ Cannot take, interacts w/ medications. Clindamycin Hcl 09/24/2005 rash Cranberry 10/20/2023 Iodinated Contrast Media 10/01/2015 Ioversol Other (Please comment) High 08/10/[address] IV DYE Pembrolizumab High 10/10/2023 Other Reaction(s): myocarditis documented as of this encounter (statuses as of 10/19/2024) Medications Syringe/Needle, Disp, 25G X 1-1/2" 3 [...] 119 g by mouth once. Active [facility] Wound/Burn Dressing External GelIndications:Pr essure injury [...] morning. 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 HTN (hypertension) 10/16/2014 History of DVT in adulthood 08/20/2014 History of pulmonary embolism 04/16/2014 Deviated nasal septum 02/03/2006 ANGIOEDEMA 02/25/2005 documented as of this encounter (statuses as of 10/19/2024) Resolved Problems Problem Noted Date Diagnosed Date [...] as of this encounter (statuses as of 10/19/2024) Immunizations Name Administration Dates Next Due COVID-19 mRNA, LNP-s, No Pre serve, 2-Dose Series ([employer]) 05/30/2021,10/29/2020,10/08/2020 COVID-19, LNP-s, No Preserve , Prosper-sucrose, [...] Date Author Yes 09/12/2023 12:39 AM EST Rich, Elizabeth A, RN documented in this encounter Miscellaneous Notes * Telephone Encounter - Asia Zhang LPN - 10/12/2024 4:06 PM EST Called and spoke to patient's , she stated patient only had one episode of diarrhea yesterday and nothing further. She does have over the counter imodium and is asking if it is ok to give this topatient in the future if needed. * Telephone Encounter - Chuy Batista MD - 10/12/2024 9:37 AM EST Need more information to give advice. How many days? How many stools per day? Some formed stools or only diarrhea? Abd pain? Blood in stool? Fever? Tried anything yet? * Telephone Encounter - Joy Guillaume OSA - 10/11/2024 1:28 PM EST Pt having a lot of di debbi wanted to know if he was able to take something for them. Lorna from [employer] asked to reach her on her cell. [phone] documented in this encounter Plan of Treatment Upcoming Encounters Date Type Department Care Team (Late st Contact Info) Description 10/27/2024 12:00 PM EDT Cardiac Studies Cardiac Studies, [address] [place] [phone] 11/10/2024 12:30 PM EDT Imaging Radiology [facility] 1st [facility] [address] [place] [phone] 01/10/2025 9:30 AM EDT Office [facility] [place] [address] [place] [address] Xavi Gramajo MD 200 [facility] [place] [address] 05/22/2025 10:45 AM EDT Office Visit Urology, [facility] [address] [place] [address] Valdemar Prado MD [address] [place] [address] Health Maintenance Due Date Last Done Comments Albumin/Creatinine Ratio 1963 DTap/Tdap Vaccines (1 - Tdap) 1964 Adult Wellness Visit 02/01/2020 01/31/2019 CKD PHOS USE SMARTSET 61662 09/11/202408/17, 09/11/2023, 07/14/2021, Additional history exists COVID-19 Vaccine ( season) 2024 08/11/2024, 07/22/2022, 07/22/2022, Additional history exists Depression Screening 12/26/2024 12/27/2023 GFR 04/12/2025 10/13/2024, 12/0 04/2024, 04/12/2024, Additional history exists CKD HGB USE SMARTSET 45905 10/13/202510/13, 10/13/2024, 07/24/2024, Additional history exists Pneumococcal [...] Power of Attor philipp? No Care Teams Pastry Cook Helper Relationship Specialty Start Date End Date Chuy Batista MD [address] [facility] [place] [address] PCP - General Family Medicine 09/14/24 documented as of this encounter
--- OUTSIDE RECORDS SUMMARY | 2024-11-04 01:25 | External Medical Summary | Summary of Care ---
Author Name Unknown Organization [facility] Address [address] [place] [address] Phone [phone] Care Team Providers Care Correctional Supervising Cook Name Role Phone Chuy Batista MD Primary Care Provider +1- [phone] Reason for Visit * Reason Onset Date Comments Advice 10/19/2024 Home Health 10/19/2024 Encounter Details Date Type Department Care Team (Late st Contact Info) Description [facility]/19[facility]24 [facility] [address] [facility] [place] [address] Chuy Batista MD [address] [place] [address] Advice; Home Health Allergies Active Allergy [...] as of this encounter (statuses as of 10/20/2024) Medications Syringe/Needle, Disp, 25G X 1-1/2" 3 [...] as of this encounter (statuses as of 10/20/2024) Active Problems Problem Noted Date Diagnosed Date [...] as of this encounter (statuses as of 10/20/2024) Resolved Problems Problem Noted Date Diagnosed Date [...] as of this encounter (statuses as of 10/20/2024) Immunizations Name Administration Dates Next Due COVID-19 mRNA, LNP-s, No Pre serve, 2-Dose Series ([employer]) 05/30/2021,10/29/2020,10/08/2020 COVID-19, LNP-s, No Preserve , [...] Telephone Encounter - Damari Benitez LPN - 10/19/2024 8:16 AM EST [facility] clinical insurance agency manager calling from [facility] Patient will be discharged from Home Health on 10/20/24 Pt is at the end of his recert period. has offered all services to pt- nursing, aide, PT, OT and social media executive. Pt and are capable in managing the pt's care. They have been given information on community resource that has not been followed through by /pt. finds is taking advantage of staff. There have been multipleincidents were pt soiled knowing staff will being coming that day so they can clean him up. Sta ff also has reported will leave during the visit to run errands/ for free time to herself. There was also an incident where pt had fall during the night, left pt on the floor anticipating staff would get him up when they arrive. There have also been many incidents where staff has arrived to the residents for scheduled appts and is still sleeping, staff has waited up to 15 minutes for to come unlock the door. FYI to PCP * Telephone Encounter - Lisa Cardona OSA - 10/19/2024 8:14 AM EST [facility] calling to speak to nurse. documented in this encounter Plan of Treatment Upcoming Encounters Date Type Department Care Team (Late st Contact Info) Description 10/27/2024 12:00 PM EDT Cardiac Studies [address] [place] [phone] 11/10/2024 12:30 PM EDT Imaging Radiology [facility] [address] [facility] [place] [address] [place] [address] 01/10/2025 9:30 AM EDT Office Visit Hematology/Oncology [facility] [address] [facility] [place] [address] Xavi Gramajo MD [address] [facility] [place] [address] 05/22/2025 10:45 AM EDT Office Visit Urology, [facility] [address] [place] [address] Valdemar Prado MD [address] [place] [address] Health Maintenance Due Date Last Done Comments Albumin/Creatinine Ratio 1963 DTap/Tdap Vaccines (1 - Tdap) 1964 Adult Wellness Visit 02/01/2020 01/31/2019 CKD PHOS USE SMARTSET 01686 09/11/202408/17, 09/11/2023, 07/14/2021, Additional history exists COVID-19 Vaccine ( season) 2024 08/11/2024, 07/22/2022, 07/22/2022, Additional history exists Depression Screening 12/26/2024 12/27/2023 GFR 04/12/2025 10/13/2024, 12/0 04/2024, 04/12/2024, Additional history exists CKD HGB USE SMARTSET 15462 10/13/202510/13, 10/13/2024, 07/24/2024, Additional history exists Pneumococcal [...] Power of Attor philipp? No Care Teams Correctional Supervising Cook Relationship Specialty Start Date End Date Chuy Batista MD [address] [place] [address] PCP - General Family Medicine 09/14/24 documented as of this encounter
--- OUTSIDE RECORDS SUMMARY | 2024-11-04 01:25 | External Medical Summary | Summary of Care ---
Author Name Unknown Organization [facility] Address [address] [place] [address] Phone [phone] Care Team Providers Care Ceramic Tile Setter Name Role Phone Chuy Batista MD Primary Care Provider +1- [phone] Reason for Visit * Reason Onset Date Comments Test Results Lab 10/16/2024 Encounter Details Date Type Department Care Team (Late st Contact Info) Description 10/16/2024 Telephone Hematology/Oncology [facility] [address] [facility] [place] [address] Xavi Gramajo MD [address] [facility] [place] [address] Test Results Lab Allergies Active Allergy Reactions Criticality Noted Date Comments Chocolate Diarrhea 05/14/2023 Chocolate Flavoring Agent (Non-Screening) High 10/09/2023 Other Reaction(s): DIARRHEA/ Cannot take, interacts w/ medications. Clindamycin Hcl 09/24/2005 rash Cranberry 10/20/2023 Iodinated Contrast Media 10/01/2015 Ioversol Other (Please comment) High 08/10/[address] IV DYE Pembrolizumab High 10/10/2023 Other Reaction(s): myocarditis documented as of this encounter (statuses as of 10/17/2024) Medications Syringe/Needle, Disp, 25G X 1-1/2" 3 ML MISC To use with injection of hydrocortisone if needed 2 Each 5 01/16/20 16 Active Additional Information Patient not taking.Reported [...] as of this encounter (statuses as of 10/17/2024) Active Problems Problem Noted Date Diagnosed Date [...] as of this encounter (statuses as of 10/17/2024) Resolved Problems Problem Noted Date Diagnosed Date [...] as of this encounter (statuses as of 10/17/2024) Immunizations Name Administration Dates Next Due COVID-19 mRNA, LNP-s, No Pre serve, 2-Dose Series ([employer]) 05/30/2021,10/29/2020,10/08/2020 COVID-19, LNP-s, No Preserve , Prosper-sucrose, [...] Telephone Encounter - Toña Ceballos LPN - 10/17/2024 11:35 AM EST Spoke with patient's Ivet, informed her of the test result message from Dr. Gramajo below. She verbalized understanding. Per Ivet's request will place lab result letter in the outgoing mail to patient's address on file. She denies any further questions or needs at this time. Result note and lab results placed in outgoing mail to patient's address on file per patient's wiferequest. * Telephone Encounter - Toña Ceballos LPN - 10/16/2024 9:51 AM EST Left message on patient's voicemail, return phone number provided. * Telephone Encounter - Toña Ceballos LPN - 10/16/2024 9:49 AM EST ----- Message from Xavi Gramajo MD sent at 10/15/2024 4:50 AM EST ----- Blood workup done on 10/13/2024: -Hemoglobin level further improved to around 13, normal WBC and normal Platelet count -Abnormal kidney function test but stable. - Normal liver function test -Serum iron: 44, TIBC 210, iron saturation 21% -Ferritin level --> 375. Overall improvement of the hemoglobin level noted. No need for intravenous iron therapy, he can continue oral iron therapy ( he is on oral iron every day, would like to change it to 3 days a week, Wednesday, Wednesday, Wednesday). documented in this encounter Plan of Treatment Upcoming Encounters Date Type Department Care Team (Late st Contact Info) Description 10/27/2024 12:00 PM EDT Cardiac Studies Cardiac Studies, [address] [place] [phone] 11/10/2024 12:30 PM EDT Imaging Radiology [address] [place] [phone] 01/10/2025 9:30 AM EDT Office Visit Hematology/Oncology [facility] [address] [facility] [place] [address] Xavi Gramajo MD [address] [place] [address] 05/22/2025 10:45 AM EDT Office Visit Urology, [facility] [address] [place] [address] Valdemar Prado MD [address] [place] [address] Health Maintenance Due Date Last Done Comments Albumin/Creatinine Ratio 1963 DTap/Tdap Vaccines (1 - Tdap) 1964 Adult Wellness Visit 02/01/2020 01/31/2019 CKD PHOS USE SMARTSET 57383 09/11/202408/17, 09/11/2023, 07/14/2021, Additional history exists COVID-19 Vaccine ( season) 2024 08/11/2024, 07/22/2022, 07/22/2022, Additional history exists Depression Screening 12/26/2024 12/27/2023 GFR 04/12/2025 10/13/2024, 04/2024, 04/12/2024, Additional history exists CKD HGB USE SMARTSET 54224 10/13/202510/13, 10/13/2024, 07/24/2024, Additional history exists Pneumococcal [...] Power of Attor philipp? No Care Teams Ceramic Tile Setter Relationship Specialty Start Date End Date Chuy Batista MD [address] [place] [address] PCP - General Family Medicine 09/14/24 documented as of this encounter
--- OUTSIDE RECORDS SUMMARY | 2024-11-04 01:25 | External Medical Summary | Summary of Care ---
Author Name Unknown Organization [facility] Address [address] [place] [address] Phone [phone] Care Team Providers Care Parking Enforcer Name Role Phone Chuy Batista MD Primary Care Provider +1- [phone] Reason for Referral * Evaluate & Treat - Unlimited Visits (Within 10 days (routine)) - Authorized Specialty Diagnoses / Procedures Referred By Monik de leon Referred To Contact Physical Therapy / Physical Medicine And Rehab Diagnoses Ambulatory dysfunction Chuy Batista MD [address] [place] [address] Phone: tel: fax: Referral ID Status Reason Start Date Expiration Date Visits Requested Visits Authorized [id number] Authorized Specialty Services Required 10/23/2024 999 999 Question Answer Referral Priority Within 10 days (routine) Where should this appointment be scheduled? Radha Encounter Details Date Type Department Care Team (Late st Contact Info) Description 10/23/2024 Telephone [facility] [address] [facility] [place] [phone] Chuy Batista MD [address] [facility] [place] [address] Allergies Active [...] mRNA, LNP-s, No Pre serve, 2-Dose Series ([employer]) 05/30/2021,10/29/2020,10/08/2020 COVID-19, LNP-s, No Preserve , Prosper-sucrose, [...] No 12/27/2023 Does the household have a [facility] source of income? (Household - for [...] encounter Miscellaneous Notes * Telephone Encounter - Alisia Gould OSA [...] [address] [place] [phone] 11/10/2024 12:30 PM EDT Imaging Radiology [address] [place] [address] 01/10/2025 9:30 AM EDT Office Visit [facility]ematology[facility]On[facility] [address] [place] [phone] Xavi Gramajo MD [address] [place] [address] 05/22/2025 10:45 AM EDT Office Visit Urology, [facility] [address] [place] [address] Valdemar Prado MD [address] [place] [address] Scheduled Referrals Name Type Priority Associated Diagnoses Orde r Schedule PHYSICAL THERAPY REFERRAL OP Referral Within 10 days (routine) Ambulatory dysfunction Ordered: 10/23/2024 Health Maintenance Due Date Last Done Comments Albumin/Creatinine Ratio 1963 DTap/Tdap Vaccines (1 - Tdap) 1964 Adult Wellness Visit 02/01/2020 01/31/2019 CKD PHOS USE SMARTSET 77257 09/11/202408/17, 09/11/2023, 07/14/2021, Additional history exists COVID-19 Vaccine ( season) 2024 08/11/2024, 07/22/2022, 07/22/2022, Additional history exists Depression Screening 12/26/2024 12/27/2023 GFR 04/12/2025 10/13/2024, 1204/2024, 04/12/2024, Additional history exists CKD HGB USE SMARTSET 73339 10/13/202510/13, 10/13/2024, 07/24/2024, Additional history exists Pneumococcal [...] Power of Attor philipp? No Care Teams Parking Enforcer Relationship Specialty Start Date End Date Chuy Batista MD [address] [place] [address] PCP - General Family Medicine 09/14/24 documented as of this encounter
--- OUTSIDE RECORDS SUMMARY | 2024-11-04 01:25 | External Medical Summary | Summary of Care ---
Author Name Unknown Organization [facility] Address [address] [place] [address] Phone [phone] Care Team Providers Care Director Of Radio Services Name Role Phone Chuy Batista MD Primary Care Provider +1- [phone] Reason for Referral * Evaluate & Treat - Unlimited Visits (Within 10 days (routine)) - Authorized Specialty Diagnoses / Procedures Referred By Monik de leon Referred To Contact Physical Therapy / Physical Medicine And Rehab Diagnoses Ambulatory dysfunction Chuy Batista MD [address] [place] [address] Phone: tel: fax: Referral ID Status Reason Start Date Expiration Date Visits Requested Visits Authorized [id number] Authorized Specialty Services Required 10/23/2024 999 999 Question Answer Referral Priority Within 10 days (routine) Where should this appointment be scheduled? Radha Encounter Details Date Type Department Care Team (Late st Contact Info) Description 10/23/2024 Telephone [facility] [address] [facility] [place] [phone] Chuy Batista MD [address] [facility] [place] [address] Allergies Active [...] mRNA, LNP-s, No Pre serve, 2-Dose Series ([employer]) 05/30/2021,10/29/2020,10/08/2020 COVID-19, LNP-s, No Preserve , Prosper-sucrose, [...] No 12/27/2023 Does the household have a [facility] source of income? (Household - for ages [...] [address] [place] [phone] 11/10/2024 12:30 PM EDT Imaging Radiology [address] [place] [address] 01/10/2025 9:30 AM EDT Office Visit Hematology/Oncology [facility] [place] [address] Xavi Gramajo MD [address] [facility] [place] [address] 05/22/2025 10:45 AM EDT Office Visit [facility], [facility] [place] [address] Valdemar Prado MD [address] [place] [address] Scheduled Referrals Name Type Priority Associated Diagnoses Orde r Schedule PHYSICAL THERAPY REFERRAL OP Referral Within 10 days (routine) Ambulatory dysfunction Ordered: 10/23/2024 Health Maintenance Due Date Last Done Comments Albumin/Creatinine Ratio 1963 DTap/Tdap Vaccines (1 - Tdap) 1964 Adult Wellness Visit 02/01/2020 01/31/2019 CKD PHOS USE SMARTSET 95828 09/11/202408/17, 09/11/2023, 07/14/2021, Additional history exists COVID-19 Vaccine ( season) 2024 08/11/2024, 07/22/2022, 07/22/2022, Additional history exists Depression Screening 12/26/2024 12/27/2023 GFR 04/12/2025 10/13/2024, 12/04/2024, 04/12/2024, Additional history exists CKD HGB USE SMARTSET 00196 10/13/202510/13, 10/13/2024, 07/24/2024, Additional history exists Pneumococcal [...] Power of Attor philipp? No Care Teams Director Of Radio Services Relationship Specialty Start Date End Date Chuy Batista MD [address] [place] [address] PCP - General Family Medicine 09/14/24 documented as of this encounter
[2024-11-04 07:07] LABS: Hematocrit (blood only) 35.5 % (42.0-52.0); Hemoglobin 11.8 g/dl (14.0-18.0); Mean Corpuscular Hemoglobin 28.4 pg (25.0-34.0); Mean Corpuscular Hgb Conc 33.2 g/dL (32.0-36.0); Mean Corpuscular Volume 85.3 fL (80.0-100.0); Mean Platelet Volume 9.1 fL (9.4-12.4); Platelet Count 204 K/uL (130-400); RDW Coefficient of Variation 16.1 % (11.5-14.5); RDW Standard Deviation 50.4 fL (36.4-46.3); Red Blood Count 4.16 M/uL (4.70-6.10); White Blood Count 5.62 K/ul (4.8-10.8)
[2024-11-04 07:20] LABS: BUN Creatinine Ratio 13.8 (10-20); Calcium 8.5 mg/dl (8.6-10.3); Creatinine Clr Calc Pharmacy 60.6 ml/min; Potassium 3.5 mmol/L (3.5-5.1)
[2024-11-04] MEDS: FLUDROCORTISONE ACETATE 0.1 MG TAB PO SCH (08:38)
[2024-11-04] MEDS: MULTIVITAMIN TAB PO SCH (08:38)
[2024-11-04] MEDS: CYANOCOBALAMIN (B-12) 500 MCG TABLET PO SCH (08:38)
[2024-11-04] MEDS: PANTOprazole 40 MG TAB PO SCH (08:38)
[2024-11-04] MEDS: CHOLECALCIFEROL 125 MCG (5,000 UNITS) TAB PO SCH (08:38)
[2024-11-04] MEDS: OXYBUTYNIN CHLORIDE XL 5 MG TABCR PO SCH (08:38)
[2024-11-04] MEDS: ASCORBIC ACID 500 MG TAB PO SCH (08:38)
[2024-11-04] MEDS: MAGNESIUM CHLORIDE W/CALCIUM 64MG DELAYED REL TAB PO SCH (08:39)
[2024-11-04] MEDS: HYDROCORTISONE 10 MG TAB PO SCH ×2 (08:39→15:03)
[2024-11-04] MEDS: VIBEGRON 75 MG TAB PO SCH (08:39)
[2024-11-04] MEDS: UMECLIDINIUM/VILANTEROL 62.5/25MCG 7 PUFFS/INHALER INH SCH (08:46)
[2024-11-04] MEDS: FLUTICASONE FUROATE 200MCG 14 PUFFS/INHALER INH SCH (08:46)
[2024-11-04] MEDS: POTASSIUM CHLORIDE CRTAB 20 MEQ TABCR PO STA (09:20)
[2024-11-04] MEDS: LIDOCAINE 5% 1 PATCH TD SCH (12:55)
--- NOTE | 2024-11-04 14:27 | Hospitalist Progress Note ---
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 He is being managed for the following: Chronic intermittent hematuria Bladder cancer s/p surgery prostate cancer s/p radiation therapy Cognitive impairment Possible CAUTI Metabolic encephalopathy reported increased confusion x1 day and cloudy urine in tatum bag at presentation. No sepsis at presentation. CT Head and CXR w/ no acute findings. Flu screen neg. UA s/o UTI, f/u on Urine c/s c/w zosyn 11/04 exchange tatum, communicated w/ rn. mentation improved and back to baseline. Exchange tatum every 4 weeks and f/u w/ uro on dc. H/O adrenal insufficiency: Continue home fludrocortisone, hydrocortisone Chronic anemia: Hb stable, c/w home supplements. Ambulatory dysfunction: PT OT eval. Fall precautions. Currently has home PT Asthma, COPD, ANDRZEJ: No signs of exacerbation. Continue home inhalers History orthostatic hypotension : c/w home fludrocortisone. DVT Prophylaxis: Hep sc. Patient's Ivet [phone] Full Code Follows with Dr Batista for routine care Admission and Anticipated Discharge Date Admission Date: November 03, 2024 Subjective Patient was seen and examined at bedside. Patient was lying in bed, on room air, NAD, resting comfortably. Patient is oriented x 3, denies any pain. Patient's at bedside who was also updated on plan of care, answered all her extensive questions. Per RN, urine is getting clear compared to last evening. Physical Exam Physical Exam: GENERAL APPEARANCE: AxOx3, generally well-appearing, though chronically ill gentleman, no acute distress. HEENT: NC, AT. MMM. EOMI, clear conjunctiva, oropharynx clear. NECK: Supple without lymphadenopathy. No stiffness or restricted ROM. HEART: Normal rate and regular rhythm, normal S1/S1, no m/r/g LUNGS: CTAB, moving air well. No crackles or wheezes are heard. ABDOMEN: Soft, nontender, nondistended with good bowel sounds heard. BACK: No CVAT, no obvious deformity. EXTREMITIES: Without cyanosis, clubbing. RLE chronic swelling, chronic skin changes, LLE without swelling NEUROLOGICAL: Grossly nonfocal. Alert and oriented, moving all 4 extremities. CN not formally tested but appear grossly intact Skin: Warm and dry without any rash. Results & Data Results & Data Vital Signs (Past 12 Hours) Vital Signs Temp Pulse Resp BP Pulse Ox O2 Del Method 11/04/24 14:08 36.6 C 75 22 132/83 96 Room Air 11/04/24 08:14 36.5 C 69 20 119/71 97 Room Air
[2024-11-04] MEDS: LIDOCAINE 2% JELLY 5 ML TUBE EXT PRN (18:47)
[2024-11-04] MEDS: HEPARIN SOD 5,000 UNIT/0.5 ML VIAL SQ SCH (21:01)
[2024-11-05 07:07] LABS: Hematocrit (blood only) 36.2 % (42.0-52.0); Hemoglobin 11.7 g/dl (14.0-18.0); Mean Corpuscular Hemoglobin 28.3 pg (25.0-34.0); Mean Corpuscular Hgb Conc 32.3 g/dL (32.0-36.0); Mean Corpuscular Volume 87.4 fL (80.0-100.0); Mean Platelet Volume 8.7 fL (9.4-12.4); Platelet Count 193 K/uL (130-400); RDW Coefficient of Variation 16.7 % (11.5-14.5); RDW Standard Deviation 52.9 fL (36.4-46.3); Red Blood Count 4.14 M/uL (4.70-6.10); White Blood Count 5.85 K/ul (4.8-10.8)
[2024-11-05 07:24] LABS: BUN Creatinine Ratio 10.9 (10-20); Calcium 8.5 mg/dl (8.6-10.3); Creatinine Clr Calc Pharmacy 50.5 ml/min; Magnesium 1.9 mg/dl (1.7-2.4); Phosphorus 4.3 mg/dl (2.5-4.9); Potassium 3.8 mmol/L (3.5-5.1)
--- NOTE | 2024-11-05 16:47 | Hospitalist Progress Note ---
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 He is being managed for the following: Chronic intermittent hematuria Bladder cancer s/p surgery prostate cancer s/p radiation therapy Cognitive impairment Possible CAUTI Metabolic encephalopathy reported increased confusion x1 day and cloudy urine in tatum bag at presentation. No sepsis at presentation. CT Head and CXR w/ no acute findings. Flu screen neg. UA s/o UTI, f/u on Urine c/s c/w zosyn 11/04 exchanged tatum this admission mentation improved and back to baseline. Exchange tatum every 4 weeks and f/u w/ uro on dc. H/O adrenal insufficiency: Continue home fludrocortisone, hydrocortisone Chronic anemia: Hb stable, c/w home supplements. Ambulatory dysfunction: PT OT eval. Fall precautions. Currently has home PT Asthma, COPD, ANDRZEJ: No signs of exacerbation. Continue home inhalers History orthostatic hypotension : c/w home fludrocortisone. DVT Prophylaxis: Hep sc. Patient's Ivet [phone] Full Code Follows with Dr Batista for routine care Admission and Anticipated Discharge Date Admission Date: November 03, 2024 Subjective Patient was seen and examined at bedside. Patient was lying in bed, on room air, NAD, resting comfortably. Patient is oriented x 3, denies any pain. Patient's was met at bedside at different time other than rounding, who was also updated on plan of care, answered all her extensive questions. she doesn't want to take him home yet, she doesn't feel he is ready yet and wants him to get iv antibiotic. Pt can be dc'd w/ PT/OT recs and on PO antibiotic. Pt's wants to continue iv antibiotic. Physical Exam Physical Exam: GENERAL APPEARANCE: AxOx3, generally well-appearing, though chronically ill gentleman, no acute distress. HEENT: NC, AT. MMM. EOMI, clear conjunctiva, oropharynx clear. NECK: Supple without lymphadenopathy. No stiffness or restricted ROM. HEART: Normal rate and regular rhythm, normal S1/S1, no m/r/g LUNGS: CTAB, moving air well. No crackles or wheezes are heard. ABDOMEN: Soft, nontender, nondistended with good bowel sounds heard. BACK: No CVAT, no obvious deformity. EXTREMITIES: Without cyanosis, clubbing. RLE chronic swelling, chronic skin changes, LLE without swelling NEUROLOGICAL: Grossly nonfocal. Alert and oriented, moving all 4 extremities. CN not formally tested but appear grossly intact Skin: Warm and dry without any rash. Tatum cath with regino urine collection in bag. Results & Data Results & Data Vital Signs (Past 12 Hours) Vital Signs Temp Pulse Resp BP Pulse Ox O2 Del Method 11/05/24 15:14 36.8 C 60 20 112/67 98 Room Air 11/05/24 07:48 36.7 C 65 18 126/73 98 Room Air 11/05/24 07:03 36.5 C 74 16 135/79 96 Room Air
[2024-11-06 07:17] LABS: Hematocrit (blood only) 37.3 % (42.0-52.0); Mean Corpuscular Hemoglobin 28.4 pg (25.0-34.0); Mean Corpuscular Hgb Conc 32.2 g/dL (32.0-36.0); Mean Corpuscular Volume 88.2 fL (80.0-100.0); Mean Platelet Volume 8.9 fL (9.4-12.4); Platelet Count 202 K/uL (130-400); RDW Coefficient of Variation 16.4 % (11.5-14.5); RDW Standard Deviation 53.5 fL (36.4-46.3); Red Blood Count 4.23 M/uL (4.70-6.10); White Blood Count 5.79 K/ul (4.8-10.8)
[2024-11-06 07:35] LABS: BUN Creatinine Ratio 11.3 (10-20); Calcium 8.6 mg/dl (8.6-10.3); Creatinine Clr Calc Pharmacy 55.5 ml/min; Magnesium 2.1 mg/dl (1.7-2.4); Phosphorus 3.9 mg/dl (2.5-4.9); Potassium 3.9 mmol/L (3.5-5.1)
[2024-11-06] MEDS: FERROUS SULFATE 325 MG TAB PO SCH (09:19)
[2024-11-06] MEDS: SODIUM CHLORIDE 0.9% 1,000 ML IV SCH (09:37)
[2024-11-06] MEDS: AMPICILLIN/SULBACTAM SOD 3,000 MG/100 ML BAG IV SCH (14:18)
--- NOTE | 2024-11-06 14:54 | Hospitalist Progress Note ---
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 He is being managed for the following: Chronic intermittent hematuria Bladder cancer s/p surgery prostate cancer s/p radiation therapy Cognitive impairment Possible CAUTI Metabolic encephalopathy reported increased confusion x1 day and cloudy urine in tatum bag at presentation. No sepsis at presentation. CT Head and CXR w/ no acute findings. Flu screen neg. UA s/o UTI, f/u on Urine c/s c/w zosyn 11/04 --> unasyn 11/06 --> on augmentin on dc. exchanged tatum this admission mentation improved and back to baseline. Exchange tatum every 4 weeks and f/u w/ uro on dc in 2 weeks. Acute kidney injury: pt has underlying dementia, doesn't drink as much, has high risk of dehydration. Coax pt freq to drink fluids, ivf today, BMP in AM. H/O adrenal insufficiency: Continue home fludrocortisone, hydrocortisone Chronic anemia: Hb stable, c/w home supplements. Ambulatory dysfunction: PT OT eval. Fall precautions. Currently has home PT Asthma, COPD, ANDRZEJ: No signs of exacerbation. Continue home inhalers History orthostatic hypotension : c/w home fludrocortisone. DVT Prophylaxis: Hep sc. Patient's Ivet [phone] Full Code Follows with Dr Batista for routine care Admission and Anticipated Discharge Date Admission Date: November 03, 2024 Subjective Patient was seen and examined at bedside. Patient was lying in bed, on room air, NAD, resting comfortably. Patient is oriented x 3, denies any pain. He has dementia at baseline. Pt needs to be coaxed in drinking more fluids or he will easily get dehydration. Per RN, no new complaints. Physical Exam Physical Exam: GENERAL APPEARANCE: AxOx3, generally well-appearing, though chronically ill gentleman, no acute distress. HEENT: NC, AT. MMM. EOMI, clear conjunctiva, oropharynx clear. NECK: Supple without lymphadenopathy. No stiffness or restricted ROM. HEART: Normal rate and regular rhythm, normal S1/S1, no m/r/g LUNGS: CTAB, moving air well. No crackles or wheezes are heard. ABDOMEN: Soft, nontender, nondistended with good bowel sounds heard. BACK: No CVAT, no obvious deformity. EXTREMITIES: Without cyanosis, clubbing. RLE chronic swelling, chronic skin changes, LLE without swelling NEUROLOGICAL: Grossly nonfocal. Alert and oriented, moving all 4 extremities. CN not formally tested but appear grossly intact Skin: Warm and dry without any rash. Tatum cath with light urine collection in bag. Results & Data Results & Data Vital Signs (Past 12 Hours) Vital Signs Temp Pulse Resp BP Pulse Ox O2 Del Method 11/06/24 14:14 36.4 C L 70 14 170/98 H 99 Room Air 11/06/24 07:58 36.7 C 65 14 132/78 98 Room Air
[2024-11-06] MEDS: hydrOXYzine HCl 25 MG TAB PO PRN (17:02)
[2024-11-07 11:04] LABS: Calcium 8.3 mg/dl (8.6-10.3); Potassium 3.4 mmol/L (3.5-5.1)
[2024-11-07 11:10] LABS: BUN Creatinine Ratio 11.1 (10-20); Creatinine Clr Calc Pharmacy 54.8 ml/min
--- NOTE | 2024-11-07 16:01 | Hospitalist Progress Note ---
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 He is being managed for the following: Chronic intermittent hematuria Bladder cancer s/p surgery prostate cancer s/p radiation therapy Cognitive impairment Possible CAUTI Metabolic encephalopathy reported increased confusion x1 day and cloudy urine in tatum bag at presentation. No sepsis at presentation. CT Head and CXR w/ no acute findings. Flu screen neg. UA s/o UTI, f/u on Urine c/s c/w zosyn 11/04 --> unasyn 11/06 --> on augmentin on dc to complete 7 day therapy. exchanged tatum this admission mentation improved and back to baseline. Exchange tatum every 4 weeks and f/u w/ uro on dc in 2 weeks. Acute kidney injury: pt has underlying dementia, doesn't drink as much, has high risk of dehydration. Coax pt freq to drink fluids, c/w ivf today, Cr not much improved, BMP in AM. H/O adrenal insufficiency: Continue home fludrocortisone, hydrocortisone Chronic anemia: Hb stable, c/w home supplements. Ambulatory dysfunction: PT OT eval. Fall precautions. Currently has home PT Asthma, COPD, ANDREZJ: No signs of exacerbation. Continue home inhalers History orthostatic hypotension : c/w home fludrocortisone. DVT Prophylaxis: Hep sc. Patient's Ivet [id number]. Updated her over the phone, advised her to coax pt to drink fluids freq, discussed about acute renal injury and pt needing ivf. Full Code Follows with Dr Batista for routine care Admission and Anticipated Discharge Date Admission Date: November 03, 2024 Subjective Patient was seen and examined at bedside. Patient on room air, NAD, NAD. Patient is oriented x 3, denies any pain. He has dementia at baseline. Pt needs to be coaxed in drinking more fluids or he will easily get dehydrated, c/w RN. Per RN, no new complaints, he is on/off confused, which actually is his baseline. Physical Exam Physical Exam: GENERAL APPEARANCE: AxOx3, generally well-appearing, though chronically ill gentleman, no acute distress. HEENT: NC, AT. MMM. EOMI, clear conjunctiva, oropharynx clear. NECK: Supple without lymphadenopathy. No stiffness or restricted ROM. HEART: Normal rate and regular rhythm, normal S1/S1, no m/r/g LUNGS: CTAB, moving air well. No crackles or wheezes are heard. ABDOMEN: Soft, nontender, nondistended with good bowel sounds heard. BACK: No CVAT, no obvious deformity. EXTREMITIES: Without cyanosis, clubbing. RLE chronic swelling, chronic skin changes, LLE without swelling NEUROLOGICAL: Grossly nonfocal. Alert and oriented, moving all 4 extremities. CN not formally tested but appear grossly intact Skin: Warm and dry without any rash. Tatum cath with light urine collection in bag. Results & Data Results & Data Vital Signs (Past 12 Hours) Vital Signs Temp Pulse Resp BP Pulse Ox O2 Del Method 11/07/24 15:25 36.8 C 71 18 112/69 99 Room Air 11/07/24 07:21 36.4 C L 77 20 126/73 97 Room Air
[2024-11-07] MEDS: SODIUM CHLORIDE 0.45 % 1,000 ML IV SCH (16:16)
[2024-11-07] MEDS: POTASSIUM CHLORIDE CRTAB 20 MEQ TABCR PO STA (16:16)
[2024-11-07] MEDS: ACETAMINOPHEN 325 MG TAB PO PRN (19:59)
[2024-11-08 06:09] LABS: BUN Creatinine Ratio 11.1 (10-20); Calcium 8.3 mg/dl (8.6-10.3); Creatinine Clr Calc Pharmacy 58.4 ml/min; Magnesium 1.9 mg/dl (1.7-2.4); Potassium 3.7 mmol/L (3.5-5.1)
--- NOTE | 2024-11-08 16:49 | Hospitalist Progress Note ---
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 He is being managed for the following: Chronic intermittent hematuria Bladder cancer s/p surgery prostate cancer s/p radiation therapy Cognitive impairment Possible CAUTI Metabolic encephalopathy reported increased confusion x1 day and cloudy urine in tatum bag at presentation. No sepsis at presentation. CT Head and CXR w/ no acute findings. Flu screen neg. UA s/o UTI, f/u on Urine c/s- urine culture is growing Klebsiella pneumoniae which is pansensitive except nitrofurantoin c/w zosyn 11/04 --> unasyn 11/06 --> on augmentin on dc to complete 7 day therapy. Exchanged tatum this admission Mentation improved and back to baseline. Exchange tatum every 4 weeks and f/u w/ uro on dc in 2 weeks. Remains pleasantly confused today and complains to have more weakness Will not be discharged today and likely to be evaluated tomorrow for possible discharge Acute kidney injury: Pt has underlying dementia, doesn't drink as much, has high risk of dehydration. Coax pt freq to drink fluids, c/w ivf today, Cr not much improved, BMP in AM. Remains pleasantly confused H/O adrenal insufficiency: Continue home fludrocortisone, hydrocortisone Chronic anemia: Hb stable, c/w home supplements. Hemoglobin remains stable at 12.0 Ambulatory dysfunction: PT OT eval. Fall precautions. Currently has home PT Asthma, COPD, ANDRZEJ: No signs of exacerbation. Continue home inhalers History orthostatic hypotension : c/w home fludrocortisone. DVT Prophylaxis: Hep sc. Patient's Ivet [id number]. Updated her over the phone, advised her to coax pt to drink fluids freq, discussed about acute renal injury and pt needing ivf. Full Code Follows with Dr Batista for routine care Admission and Anticipated Discharge Date Admission Date: November 03, 2024 Subjective 11/08/2024 The patient was seen and examined in medical floor He complains that he had an unwitnessed fall and he has been on a chair eating lunch since then The nursing staff did not know about the fall and the patient did not have any injury as per him He has been complaining of weakness and does not want to go home today He denies any other significant symptoms Review of Systems Review of Systems: All systems reviewed and are unremarkable except ongoing dizziness and weakness Physical Exam Physical Exam: Sitting on a chair without any acute distress Constitutional: well developed, well nourished, + ill appearing and average body habitus Eyes: PERRL, conjunctivae normal, anicteric sclerae ENMT: external ear and nose normal, oropharynx normal Neck: trachea midline, no thyromegaly Respiratory: normal respiratory effort; no respiratory distress Auscultation: lungs clear to auscultation bilaterally Cardiovascular: Rate/Rhythm: regular rate and regular rhythm; not tachycardic Heart Sounds: normal S1, normal S2 and + murmur ( 2/6 over precordium) Extremities: no edema Gastrointestinal (Abdomen): Inspection/Auscultation: abdomen normal to inspection and normal bowel sounds; abdomen not distended Percussion/Palpation: abdomen soft; abdomen nontender Musculoskeletal: No acute arthritis involving any of the joint Neurologic: normal touch/pain/proprioception and moves all extremities; no focal motor deficits Lymphatic: no cervical or axillary lymphadenopathy Results & Data Results & Data Vital Signs (Past 12 Hours) Vital Signs Temp Pulse Resp BP Pulse Ox O2 Del Method 11/08/24 13:49 36.4 C L 68 20 120/84 100 Room Air 11/08/24 08:00 36.6 C 68 16 130/86 97 Room Air Laboratory Results [facility] 11/08/24 05:34 Sodium 140 Potassium 3.7 Chloride 111 H Carbon Dioxide 26 BUN 15 Creatinine 1.35 Glucose 95 Calcium 8.3 L Medications Administered Current Inpatient Medications Acetaminophen (Acetaminophen 325 Mg Tab) 650 mg PO Q4H PRN PRN Reason: pain/fever Stop: 12/03/24 21:39 Last Admin: 11/07/24 19:59 Dose: 650 mg Albuterol (Albuterol Hfa 8 Gm Inhaler) 2 puffs INH Q6H PRN PRN Reason: Shortness Of Breath Or Wheezing Stop: 12/03/24 21:39 Ascorbic Acid (Ascorbic Acid 500 Mg Tab) 1,000 mg PO DAILY TAWNY Stop: 12/04/24 08:59 Last Admin: 11/08/24 08:29 Dose: 1,000 mg Cyanocobalamin (Cyanocobalamin (B-12) 500 Mcg Tablet) 1,000 mcg PO DAILY TAWNY Stop: 12/04/24 08:59 Last Admin: 11/08/24 08:29 Dose: 1,000 mcg Ferrous Sulfate (Ferrous Sulfate 325 Mg Tab) 325 mg PO MoWeFr [facility] Stop: 12/06/24 08:59 Last Admin: 11/08/24 08:29 Dose: 325 mg Fludrocortisone Acetate (Fludrocortisone Acetate 0.1 Mg Tab) 0.1 mg PO DAILY [facility] Stop: 12/04/24 08:59 Last Admin: 11/08/24 08:28 Dose: 0.1 mg Fluticasone Furoate (Fluticasone Furoate 200mcg 14 Puffs/Inhaler) 1 puffs INH DAILY [facility] Stop: 12/04/24 08:59 Last Admin: 11/08/24 08:27 Dose: 1 puffs Heparin Sodium (Porcine) (Heparin Sod 5,000 Unit/0.5 Ml Vial) 5,000 units SQ Q12 [facility] Stop: 12/04/24 20:59 Last Admin: 11/08/24 08:27 Dose: 5,000 units Hydrocortisone (Hydrocortisone 10 Mg Tab) 10 mg PO DAILY@1500 [facility] Stop: 12/04/24 14:59 Last Admin: 11/08/24 14:19 Dose: 10 mg Hydrocortisone (Hydrocortisone 10 Mg Tab) 20 mg PO QAM [facility] Stop: 12/04/24 08:59 Last Admin: 11/08/24 08:30 Dose: 20 mg Hydroxyzine HCl (Hydroxyzine Hcl 25 Mg Tab) 25 mg PO Q6H PRN PRN Reason: anxiety Stop: 12/06/24 16:59 Last Admin: 11/06/24 17:02 Dose: 25 mg Ampicillin Sodium/Sulbactam Sodium (Unasyn) 3,000 mg in 100 mls @ 200 mls/hr IV Q6H [facility]; Protocol Stop: 11/16/24 13:59 Last Infusion: 11/08/24 14:19 Dose: Infused Lidocaine (Lidocaine 5% 1 Patch) 1 patch TD DAILY [facility] Stop: 12/04/24 08:59 Last Admin: 11/08/24 08:28 Dose: Not Given Lidocaine HCl (Lidocaine 2% Jelly 5 Ml Tube) 5 ml EXT ONE PRN PRN Reason: catheter insertion Stop: 12/04/24 18:29 Last Admin: 11/04/24 18:47 Dose: 5 ml Magnesium Chloride (Magnesium Chloride W/Calcium 64mg Delayed Rel Tab) 64 mg PO DAILY [facility] Stop: 12/04/24 08:59 Last Admin: 11/08/24 08:28 Dose: 64 mg Memantine (Memantine Hcl 10 Mg Tab) 10 mg PO BID [facility] Stop: 12/03/24 21:39 Last Admin: 11/08/24 08:29 Dose: 10 mg Miscellaneous (Remove Lidoderm Patch) 1 each N/A DAILY@2100 [facility] Stop: 12/03/24 21:39 Last Admin: 11/07/24 20:06 Dose: 1 each Multivitamins (Multivitamin Tab) 1 tab PO QAM [facility] Stop: 12/04/24 08:59 Last Admin: 11/08/24 08:29 Dose: 1 tab Ondansetron HCl (Ondansetron Inj 2 Mg/Ml 2 Ml Vial) 4 mg IV Q6H PRN PRN Reason: Nausea Stop: 12/03/24 21:39 Oxybutynin Chloride (Oxybutynin Chloride Xl 5 Mg Tabcr) 5 mg PO DAILY [facility]WNY Stop: 12/04/24 08:59 Last Admin: 11/08/24 08:30 Dose: 5 mg Pantoprazole Sodium (Pantoprazole 40 Mg Tab) 40 mg PO DAILY [facility] Stop: 12/04/24 08:59 Last Admin: 11/08/24 08:30 Dose: 40 mg Polyethylene Glycol (Polyethylene (Miralax) 17 Gm Pack) 17 gm PO DAILY PRN PRN Reason: Constipation Stop: 12/03/24 21:39 Umeclidinium/Vilanterol (Umeclidinium/Vilanterol 62.5/25mcg 7 Puffs/Inhaler) 1 puffs INH DAILY [facility] Stop: 12/04/24 08:59 Last Admin: 11/08/24 08:30 Dose: 1 puffs Vibegron (Vibegron 75 Mg Tab) 75 mg PO DAILY [facility] Stop: 12/04/24 08:59 Last Admin: 11/08/24 08:30 Dose: 75 mg Vitamin D (Cholecalciferol 125 Mcg (5,000 Units) Tab) 125 mcg PO DAILY [facility] Stop: 12/04/24 08:59 Last Admin: 11/08/24 08:29 Dose: 125 mcg
[2024-11-09 08:09] LABS: Basophils # (auto) 0.04 K/uL (0.00-0.20); Basophils % (auto) 0.6 %; Eosinophils # (auto) 0.34 K/uL (0.00-0.50); Eosinophils % (auto) 4.8 %; Hematocrit (blood only) 37.1 % (42.0-52.0); Immature Granulocytes # (auto) 0.02 K/uL (0.01-0.20); Immature Granulocytes % (auto) 0.3 %; Lymphocytes # (auto) 2.16 K/uL (1.20-3.40); Lymphocytes % (auto) 30.3 %; Mean Corpuscular Hemoglobin 28.5 pg (25.0-34.0); Mean Corpuscular Hgb Conc 32.3 g/dL (32.0-36.0); Mean Corpuscular Volume 88.1 fL (80.0-100.0); Monocytes # (auto) 0.47 K/uL (0.11-0.59); Monocytes % (auto) 6.6 %; Neutrophils % (auto) 57.4 %; Platelet Count 205 K/uL (130-400); RDW Coefficient of Variation 16.2 % (11.5-14.5); RDW Standard Deviation 52.8 fL (36.4-46.3); Red Blood Count 4.21 M/uL (4.70-6.10); White Blood Count 7.13 K/ul (4.8-10.8)
[2024-11-09 08:27] LABS: BUN Creatinine Ratio 9.4 (10-20); Calcium 8.7 mg/dl (8.6-10.3); Creatinine Clr Calc Pharmacy 52.9 ml/min; Potassium 3.7 mmol/L (3.5-5.1)
[2024-11-09] MEDS: SODIUM CHLORIDE 0.9% 1,000 ML IV SCH (11:55)
--- NOTE | 2024-11-09 15:10 | Hospitalist Progress Note ---
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 He is being managed for the following: Chronic intermittent hematuria Bladder cancer s/p surgery prostate cancer s/p radiation therapy Cognitive impairment Possible CAUTI Metabolic encephalopathy reported increased confusion x1 day and cloudy urine in tatum bag at presentation. No sepsis at presentation. CT Head and CXR w/ no acute findings. Flu screen neg. UA s/o UTI, f/u on Urine c/s- urine culture is growing Klebsiella pneumoniae which is pansensitive except nitrofurantoin c/w zosyn 11/04 --> unasyn 11/06 --> on augmentin on dc to complete 7 day therapy. Exchanged tatum this admission Mentation improved and back to baseline. Exchange tatum every 4 weeks and f/u w/ uro on dc in 2 weeks. Remains pleasantly confused today and complains to have more weakness Will not be discharged today and likely to be evaluated tomorrow for possible discharge He has been feeling a lot better today and is willing to go home Acute kidney injury: Pt has underlying dementia, doesn't drink as much, has high risk of dehydration. Coax pt freq to drink fluids, c/w ivf today, Cr not much improved, BMP in AM. Remains pleasantly confused Creatinine remains elevated at 1.49 He will be given normal saline infusion for a low total of 3 L to improve creatinine before he can be discharged H/O adrenal insufficiency: Continue home fludrocortisone, hydrocortisone Chronic anemia: Hb stable, c/w home supplements. Hemoglobin remains stable at 12.0 Ambulatory dysfunction: PT OT eval. Fall precautions. Currently has home PT Asthma, COPD, ANDRZEJ: No signs of exacerbation. Continue home inhalers History orthostatic hypotension : c/w home fludrocortisone. DVT Prophylaxis: Hep sc. Patient's Ivet [id number]. Updated her over the phone, advised her to coax pt to drink fluids freq, discussed about acute renal injury and pt needing ivf. Full Code Follows with Dr Batista for routine care Admission and Anticipated Discharge Date Admission Date: November 03, 2024 Subjective 11/08/2024 The patient was seen and examined in medical floor He complains that he had an unwitnessed fall and he has been on a chair eating lunch since then The nursing staff did not know about the fall and the patient did not have any injury as per him He has been complaining of weakness and does not want to go home today He denies any other significant symptoms 11/09/2024 The patient was seen and examined in medical floor He has been feeling a lot better today but remains pleasantly confused Creatinine still remains elevated and not sure how much fluid he has been drinking Will give normal saline for a total of 3 L today Review of Systems Review of Systems: All systems reviewed and are unremarkable except ongoing dizziness and weakness Physical Exam Physical Exam: Sitting on a chair without any acute distress Constitutional: well developed, well nourished, + ill appearing and average body habitus Eyes: PERRL, conjunctivae normal, anicteric sclerae ENMT: external ear and nose normal, oropharynx normal Neck: trachea midline, no thyromegaly Respiratory: normal respiratory effort; no respiratory distress Auscultation: lungs clear to auscultation bilaterally Cardiovascular: Rate/Rhythm: regular rate and regular rhythm; not tachycardic Heart Sounds: normal S1, normal S2 and + murmur ( 2/6 over precordium) Extremities: no edema Gastrointestinal (Abdomen): Inspection/Auscultation: abdomen normal to inspection and normal bowel sounds; abdomen not distended Percussion /Palpation: abdomen soft; abdomen nontender Neurologic: normal touch/pain/proprioception and moves all extremities; no focal motor deficits Lymphatic: no cervical or axillary lymphadenopathy Results & Data Results & Data Vital Signs (Past 12 Hours) Vital Signs Temp Pulse Resp BP Pulse Ox O2 Del Method 11/09/24 14:44 36.3 C L 71 16 101/64 99 Room Air 11/09/24 10:45 98 11/09/24 07:21 36.6 C 69 18 115/69 97 Room Air Laboratory Results Short CBC 11/09/24 Range/Units 07:29 WBC 7.13 (4.8-10.8) K/ul Hgb 12.0 L (14.0-18.0) g/dl Hct 37.1 L (42.0-52.0) % Plt Count 205 (130-400) K/uL BMP 11/09/24 07:29 Sodium 140 Potassium 3.7 Chloride 110 H Carbon Dioxide 27 BUN 14 Creatinine 1.49 H Glucose 95 Calcium 8.7 Medications Administered Current Inpatient Medications Acetaminophen (Acetaminophen 325 Mg Tab) 650 mg PO Q4H PRN PRN Reason: pain/fever Stop: 12/03/24 21:39 Last Admin: 11/09/24 07:48 Dose: 650 mg Albuterol (Albuterol Hfa 8 Gm Inhaler) 2 puffs INH Q6H PRN PRN Reason: Shortness Of Breath Or Wheezing Stop: 12/03/24 21:39 Ascorbic Acid (Ascorbic Acid 500 Mg Tab) 1,000 mg PO DAILY [facility] Stop: 12/04/24 08:59 Last Admin: 11/09/24 07:41 Dose: 1,000 mg Cyanocobalamin (Cyanocobalamin (B-12) 500 Mcg Tablet) 1,000 mcg PO DAILY [facility] Stop: 12/04/24 08:59 Last Admin: 11/09/24 07:41 Dose: 1,000 mcg Ferrous Sulfate (Ferrous Sulfate 325 Mg Tab) 325 mg PO MoWeFr [facility] Stop: 12/06/24 08:59 Last Admin: 11/08/24 08:29 Dose: 325 mg Fludrocortisone Acetate (Fludrocortisone Acetate 0.1 Mg Tab) 0.1 mg PO DAILY [facility] Stop: 12/04/24 08:59 Last Admin: 11/09/24 07:41 Dose: 0.1 mg Fluticasone Furoate (Fluticasone Furoate 200mcg 14 Puffs/Inhaler) 1 puffs INH DAILY [facility] Stop: 12/04/24 08:59 Last Admin: 11/09/24 07:42 Dose: 1 puffs Heparin Sodium (Porcine) (Heparin Sod 5,000 Unit/0.5 Ml Vial) 5,000 units SQ Q12 [facility] Stop: 12/04/24 20:59 Last Admin: 11/09/24 07:48 Dose: 5,000 units Hydrocortisone (Hydrocortisone 10 Mg Tab) 10 mg PO DAILY@1500 [facility] Stop: 12/04/24 14:59 Last Admin: 11/09/24 14:14 Dose: 10 mg Hydrocortisone (Hydrocortisone 10 Mg Tab) 20 mg PO QAM [facility] Stop: 12/04/24 08:59 Last Admin: 11/09/24 07:40 Dose: 20 mg Hydroxyzine HCl (Hydroxyzine Hcl 25 Mg Tab) 25 mg PO Q6H PRN PRN Reason: anxiety Stop: 12/06/24 16:59 Last Admin: 11/06/24 17:02 Dose: 25 mg Ampicillin Sodium/Sulbactam Sodium (Unasyn) 3,000 mg in 100 mls @ 200 mls/hr IV Q6H [facility]; Protocol Stop: 11/16/24 13:59 Last Infusion: 11/09/24 14:43 Dose: Infused Sodium Chloride (Nss) 1,000 mls @ 125 mls/hr IV .Q8H [facility] Stop: 11/10/24 11:29 Last Admin: 11/09/24 11:55 Dose: 125 mls/hr Lidocaine (Lidocaine 5% 1 Patch) 1 patch TD DAILY [facility] Stop: 12/04/24 08:59 Last Admin: 11/09/24 07:56 Dose: 1 patch Lidocaine HCl (Lidocaine 2% Jelly 5 Ml Tube) 5 ml EXT ONE PRN PRN Reason: catheter insertion Stop: 12/04/24 18:29 Last Admin: 11/04/24 18:47 Dose: 5 ml Magnesium Chloride (Magnesium Chloride W/Calcium 64mg Delayed Rel Tab) 64 mg PO DAILY [facility] Stop: 12/04/24 08:59 Last Admin: 11/09/24 07:41 Dose: 64 mg Memantine (Memantine Hcl 10 Mg Tab) 10 mg PO BID [facility] Stop: 12/03/24 21:39 Last Admin: 11/09/24 07:41 Dose: 10 mg Miscellaneous (Remove Lidoderm Patch) 1 each N/A DAILY@2100 [facility] Stop: 12/03/24 21:39 Last Admin: 11/08/24 19:51 Dose: 1 each Multivitamins (Multivitamin Tab) 1 tab PO QAM [facility] Stop: 12/04/24 08:59 Last Admin: 11/09/24 07:41 Dose: 1 tab Ondansetron HCl (Ondansetron Inj 2 Mg/Ml 2 Ml Vial) 4 mg IV Q6H PRN PRN Reason: Nausea Stop: 12/03/24 21:39 Oxybutynin Chloride (Oxybutynin Chloride Xl 5 Mg Tabcr) 5 mg PO DAILY [facility] Stop: 12/04/24 08:59 Last Admin: 11/09/24 07:42 Dose: 5 mg Pantoprazole Sodium (Pantoprazole 40 Mg Tab) 40 mg PO DAILY [facility] Stop: 12/04/24 08:59 Last Admin: 11/09/24 07:41 Dose: 40 mg Polyethylene Glycol (Polyethylene (Miralax) 17 Gm Pack) 17 gm PO DAILY PRN PRN Reason: Constipation Stop: 12/03/24 21:39 Umeclidinium/Vilanterol (Umeclidinium/Vilanterol 62.5/25mcg 7 Puffs/Inhaler) 1 puffs INH DAILY [facility] Stop: 12/04/24 08:59 Last Admin: 11/09/24 07:42 Dose: 1 puffs Vibegron (Vibegron 75 Mg Tab) 75 mg PO DAILY [facility] Stop: 12/04/24 08:59 Last Admin: 11/09/24 07:42 Dose: 75 mg Vitamin D (Cholecalciferol 125 Mcg (5,000 Units) Tab) 125 mcg PO DAILY [facility] Stop: 12/04/24 08:59 Last Admin: 11/09/24 07:42 Dose: 125 mcg
[2024-11-10 08:03] VITALS: PULSE 69; RESP 16; TEMP 97.7; O2SAT 99
[2024-11-10 09:46] LABS: BUN Creatinine Ratio 10.3 (10-20); Calcium 8.3 mg/dl (8.6-10.3); Potassium 3.3 mmol/L (3.5-5.1)
[2024-11-10] MEDS: POTASSIUM CHLORIDE CRTAB 20 MEQ TABCR PO STA (10:28)
--- NOTE | 2024-11-10 12:07 | Hospitalist Progress Note ---
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 He is being managed for the following: Chronic intermittent hematuria Bladder cancer s/p surgery prostate cancer s/p radiation therapy Cognitive impairment Possible CAUTI Metabolic encephalopathy reported increased confusion x1 day and cloudy urine in tatum bag at presentation. No sepsis at presentation. CT Head and CXR w/ no acute findings. Flu screen neg. UA s/o UTI, f/u on Urine c/s- urine culture is growing Klebsiella pneumoniae which is pansensitive except nitrofurantoin c/w zosyn 11/04 --> unasyn 11/06 --> on augmentin on dc to complete 7 day therapy. Exchanged tatum this admission Mentation improved and back to baseline. Exchange tatum every 4 weeks and f/u w/ uro on dc in 2 weeks. Remains pleasantly confused today and complains to have more weakness Will not be discharged today and likely to be evaluated tomorrow for possible discharge He has been feeling a lot better today and is willing to go home Acute kidney injury: Pt has underlying dementia, doesn't drink as much, has high risk of dehydration. Coax pt freq to drink fluids, c/w ivf today, Cr not much improved, BMP in AM. Remains pleasantly confused Creatinine remains elevated at 1.49 He will be given normal saline infusion for a low total of 3 L to improve creatinine before he can be discharged His kidney function has been normalized He was advised to drink more fluid to maintain the kidney function as 80s He received potassium supplement for minimally low potassium at 3.3 H/O adrenal insufficiency: Continue home fludrocortisone, hydrocortisone Chronic anemia: Hb stable, c/w home supplements. Hemoglobin remains stable at 12.0 Ambulatory dysfunction: PT OT eval. Fall precautions. Currently has home PT Asthma, COPD, ANDRZEJ: No signs of exacerbation. Continue home inhalers History orthostatic hypotension : c/w home fludrocortisone. DVT Prophylaxis: Hep sc. Patient's Ivet [phone]. Updated her over the phone, advised her to coax pt to drink fluids freq, discussed about acute renal injury and pt needing ivf. Full Code Follows with Dr Batista for routine care He will be discharged this afternoon Admission and Anticipated Discharge Date Admission Date: November 03, 2024 Subjective 11/08/2024 The patient was seen and examined in medical floor He complains that he had an unwitnessed fall and he has been on a chair eating lunch since then The nursing staff did not know about the fall and the patient did not have any injury as per him He has been complaining of weakness and does not want to go home today He denies any other significant symptoms 11/09/2024 The patient was seen and examined in medical floor He has been feeling a lot better today but remains pleasantly confused Creatinine still remains elevated and not sure how much fluid he has been drinking Will give normal saline for a total of 3 L today The patient was seen and examined in medical floor He has been feeling much better today and except mild confusion does not have any other symptoms He will be discharged home this afternoon Review of Systems Review of Systems: All systems reviewed and are unremarkable except ongoing dizziness and weakness Physical Exam Physical Exam: Sitting on a chair without any acute distress Constitutional: well developed, well nourished, + ill appearing and average body habitus Eyes: PERRL, conjunctivae normal, anicteric sclerae ENMT: external ear and nose normal, oropharynx normal Neck: trachea midline, no thyromegaly Respiratory: normal respiratory effort; no respiratory distress Auscultation: lungs clear to auscultation bilaterally Cardiovascular: Rate/Rhythm: regular rate and regular rhythm; not tachycardic Heart Sounds: normal S1, normal S2 and + murmur ( 2/6 over precordium) Extremities: no edema Gastrointestinal (Abdomen): Inspection/Auscultation: abdomen normal to inspection and normal bowel sounds; abdomen not distended Percussion/Palpation: abdomen soft; abdomen nontender Neurologic: normal touch/pain/proprioception and moves all extremities; no focal motor deficits Lymphatic: no cervical or axillary lymphadenopathy Results & Data Results & Data Vital Signs (Past 12 Hours) Vital Signs Temp Pulse Resp BP Pulse Ox O2 Del Method 11/10/24 08:01 36.5 C 69 16 150/78 H 99 Room Air Laboratory Results [facility] 11/10/24 08:58 Sodium 141 Potassium 3.3 L Chloride 110 H Carbon Dioxide 25 BUN 14 Creatinine 1.36 Glucose 101 H Calcium 8.3 L
[2024-11-10 12:43] VITALS: BP 153/84
--- NOTE | 2024-11-11 07:35 | Discharge Summary ---
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 History obtained from patient's on phone as patient with baseline confusion. Jina t states feels a little SOB but is unable to further clarify. Patient states having memory problems. He states has been using walker at home and had been ambulating. Per she was concerned as patient was more confused this morning. She states that he didn't know her name this morning and that is not his normal. He is usually oriented to person, place and knows family and friends. concerned Patient may have UTI with this increased confusion as this is occurred in past. states past 5 days has had nasal congestion. States she has also had nasal congestion. She states he has had a little cough sometimes productive yellow. States 2 weeks ago had couple of loose stools and stopped giving him apple juice and loose stools have subsided. States has been eating and drinking normally. Reports often has cloudy urine in Tatum bag. Denies any noted vomiting or diarrhea or rashes. Per patients patient has home PT coming and she is pleased with the PT and his progress. Admission Exam Per Admitting Provider GENERAL APPEARANCE: AxOx2, generally well-appearing, though chronically ill gentleman, no acute distress. HEENT: NC, AT. MMM. EOMI, clear conjunctiva, oropharynx clear. NECK: Supple without lymphadenopathy. No stiffness or restricted ROM. HEART: Normal rate and regular rhythm, normal S1/S1, no m/r/g LUNGS: CTAB, moving air well. No crackles or wheezes are heard. ABDOMEN: Soft, nontender, nondistended with good bowel sounds heard. BACK: No CVAT, no obvious deformity. EXTREMITIES: Without cyanosis, clubbing. RLE chronic swelling, chronic skin changes, LLE without swelling NEUROLOGICAL: Grossly nonfocal. Alert and oriented, moving all 4 extremities. CN not formally tested but appear grossly intact Skin: Warm and dry without any rash. Principal Diagnosis Dementia with ongoing confusion, chronic indwelling Tatum catheter with UTI, adrenal insufficiency, orthostatic hypotension Discharge Exam Sitting on a chair without any acute distress Constitutional well developed, well nourished, + ill appearing and average body habitus Eyes PERRL, conjunctivae normal, anicteric sclerae ENMT external ear and nose normal, oropharynx normal Neck trachea midline, no thyromegaly Respiratory normal respiratory effort; no respiratory distress Auscultation: lungs clear to auscultation bilaterally Cardiovascular Rate/Rhythm: regular rate and regular rhythm; not tachycardic Heart Sounds: normal S1, normal S2 and + murmur ( 2/6 over precordium) Extremities: no edema Gastrointestinal (Abdomen) Inspection/Auscultation: abdomen normal to inspection and normal bowel sounds; abdomen not distended Percussion/Palpation: abdomen soft; abdomen nontender Neurologic normal touch/pain/proprioception and moves all extremities; no focal motor deficits Lymphatic no cervical or axillary lymphadenopathy Discharge Data Allergies Allergy/AdvReac Type Severity Reaction Status Date / Time Iodinated Contrast Media Allergy Severe LOVERSOL---CARDIAC Verified 11/03/24 17:[address] CONTRAST clindamycin Allergy Intermediate Rash Verified 11/03/24 17:28 cranberry Allergy Unknown Unknown Verified 11/03/24 17:28 chocolate flavor AdvReac Severe DIARRHEA/ Verified 11/03/24 17:28 Cannot take, interacts w/ medications. 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 He is being managed for the following: Chronic intermittent hematuria Bladder cancer s/p surgery prostate cancer s/p radiation therapy Cognitive impairment Possible CAUTI Metabolic encephalopathy reported increased confusion x1 day and cloudy urine in tatum bag at presentation. No sepsis at presentation. CT Head and CXR w/ no acute findings. Flu screen neg. UA s/o UTI, f/u on Urine c/s- urine culture is growing Klebsiella pneumoniae which is pansensitive except nitrofurantoin c/w zosyn 11/04 --> unasyn 11/06 --> on augmentin on dc to complete 7 day therapy. Exchanged tatum this admission Mentation improved and back to baseline. Exchange tatum every 4 weeks and f/u w/ uro on dc in 2 weeks. Remains pleasantly confused today and complains to have more weakness Will not be discharged today and likely to be evaluated tomorrow for possible discharge He has been feeling a lot better today and is willing to go home Acute kidney injury: Pt has underlying dementia, doesn't drink as much, has high risk of dehydration. Coax pt freq to drink fluids, c/w ivf today, Cr not much improved, BMP in AM. Remains pleasantly confused Creatinine remains elevated at 1.49 He will be given normal saline infusion for a low total of 3 L to improve creatinine before he can be discharged His kidney function has been normalized He was advised to drink more fluid to maintain the kidney function as 80s He received potassium supplement for minimally low potassium at 3.3 H/O adrenal insufficiency: Continue home fludrocortisone, hydrocortisone Chronic anemia: Hb stable, c/w home supplements. Hemoglobin remains stable at 12.0 Ambulatory dysfunction: PT OT eval. Fall precautions. Currently has home PT Asthma, COPD, ANDRZEJ: No signs of exacerbation. Continue home inhalers History orthostatic hypotension : c/w home fludrocortisone. DVT Prophylaxis: Hep sc. Patient's Ivet [id number]. Updated her over the phone, advised her to coax pt to drink fluids freq, discussed about acute renal injury and pt needing ivf. Full Code Follows with Dr Batista for routine care He will be discharged this afternoon Total Time Total Time Spent Total Time Spent (In Minutes): 45 Minutes Discharge Plan Discharge Items Patient Disposition: Home - Home Health Services Reason For Visit: CONFUSION Discharge Diagnosis: Dementia with ongoing confusion, chronic indwelling Tatum catheter with UTI, adrenal insufficiency, orthostatic hypotension Condition on Discharge: Fair Activity: Resume your previous activity Non-emergency contact: Primary Care Provider Call non-emergency contact if: you have any medication questions and your symptoms worsen Follow-up/Referrals: Valdemar Prado MD [Outside Practitioners] - (Date & Time 12/06/2024 10:00 AM Provider: [facility], [place] [facility], [place] *catheter change*) Deondre Hill MD [Primary Care Provider] - (Date & Time 11/13/2024 2:20 PM Provider: Chuy Batista MD [facility], [facility] ) Diet: Regular Addtl Attending Provider Instructions: Please take precaution to avoid falls Take your medications as advised Try to drink more fluid to avoid dehydration Please keep appointments with the healthcare providers Pending Studies at Discharge: No Stand-Alone Forms: My [facility] [employer], Smoking Cessation Medications and DC Order Prescriptions: New amoxicillin-pot clavulanate 875-125 mg tablet 1 tab PO BID Qty: 10 0RF Continued hydrocortisone [Cortef] 10 mg tablet 20 mg PO QAM Qty: 0 0RF mirabegron [Myrbetriq] 25 mg tablet extended release 24 hr 25 mg PO DAILY hydrocortisone [Cortef] 10 mg tablet 10 mg PO .DAILY @ 1500 Rx Instructions: TAKES 20mg in am. and 10mg at 1500 ferrous sulfate 325 mg (65 mg iron) tablet,delayed release (DR/EC) 325 mg PO 3XWK Rx Instructions: MON, WED, & FRI. magnesium chloride 64 mg tablet,delayed release (DR/EC) 64 mg PO DAILY acetaminophen 325 mg Tablet 650 mg PO Q4H PRN (Reason: fever or pain) Qty: 30 0RF memantine 10 mg Tablet 10 mg PO BID Qty: 60 0RF lidocaine 5 % Adhesive Patch,Medicated 2 patch transdermal DAILY Qty: 20 0RF ascorbic acid (vitamin C) 1,000 mg Tablet 1,000 mg PO DAILY Qty: 30 0RF cyanocobalamin (vitamin B-12) 1,000 mcg Tablet 1,000 mcg PO DAILY Qty: 30 0RF omeprazole 20 mg capsule,delayed release(DR/EC) 20 mg PO DAILY Qty: 30 0RF epinephrine 0.3 mg/0.3 mL Auto-Injector 0.3 mg IM UD PRN (Reason: Anaphylaxis) Qty: 3 0RF Rx Instructions: prn anaphylaxis solifenacin 5 mg tablet 5 mg PO DAILY Qty: 30 0RF cholecalciferol (vitamin D3) [Vitamin D3] 125 mcg (5,000 unit) Tablet 125 mcg PO DAILY Qty: 30 0RF multivit with min-folic acid [Multivitamin Gummies] 200 mcg Tablet,Chewable 1 tab PO DAILY Qty: 30 0RF Trelegy Ellipta 200-62.5-25 mcg blister with device 1 inh INHALATION DAILY Qty: 1 0RF albuterol sulfate 90 mcg/actuation HFA aerosol inhaler 2 puff INHALATION Q6H PRN (Reason: Shortness Of Breath Or Wheezing) fludrocortisone 0.1 mg tablet 0.1 mg PO DAILY Discharge Orders: Discharge Order (Routine); Ordered 11/10/24 Ordered By: Estefany Devlin Admission Data Admit Date/Time: 11/03/24 17:48 Attending Provider: Estefany Devlin Admit Provider: Maricarmen Millan Primary Care Provider: Deondre Hill Other Providers: Maricarmen Millan; [facility],Home Healthcare; Issa Dickerson Other Interventions: Discharge Summary Assessment (RN) Last Done: 11/10/24 12:42
== END 2024-11-10 13:26 | disposition home health service (06) | DRG 698 ==
LOC: ED 13:30 → 3N 17:48 → SUATTDRO 17:48 → 3N 21:06

== ENCOUNTER 2024-11-12 19:16 | Inpatient (IN) ==
--- OUTSIDE RECORDS SUMMARY | 2024-11-12 19:22 | External Medical Summary | Summary of Care ---
Author Name Unknown Organization [facility] Address [address] [place] [address] Phone [phone] Care Team Providers Care Machine C[employer]older Name Role Phone Chuy Batista MD Primary Care Provider [phone] Reason for Visit * Reason Onset Date Comments Hospital Follow-Up 11/06/2024 Encounter Details Date Type Department Care Team (Late st Contact Info) Description 11/06/2024 Telephone Urology Miri Orozco [address] [place] [place] [address] [place] [id number] Valdemar Prado MD [address] [place] [address] Hospital Follow-Up Allergies Active Allergy Reactions Criticality Noted Date Comments Chocolate Diarrhea 05/14/2023 Chocolate Flavoring Agent (Non-Screening) High 10/09/2023 Other Reaction(s): DIARRHEA/ Cannot take, interacts w/ medications. Clindamycin Hcl 09/24/2005 rash Cranberry 10/20/2023 Iodinated Contrast Media 10/01/2015 Ioversol Other (Please comment) High 08/10/[address] IV DYE Pembrolizumab High 10/10/2023 Other Reaction(s): myocarditis documented as of this encounter (statuses as of 11/09/2024) Medications Syringe/Needle, Disp, 25G X 1-1/2" 3 [...] Take 119 g by mouth once. Active [facility] Wound/Burn Dressing External GelIndications:Pr essure [...] as of this encounter (statuses as of 11/09/2024) Active Problems Problem Noted Date Diagnosed Date [...] as of this encounter (statuses as of 11/09/2024) Resolved Problems Problem Noted Date Diagnosed Date [...] as of this encounter (statuses as of 11/09/2024) Immunizations Name Administration Dates Next Due COVID-19 [...] doing errands alone such as visiting a doctor’s office or shopping? (15 years old or [...] Telephone Encounter - Vitaliy Almendarez OSA - 11/09/2024 1:42 PM EDT I spoke to Patient's . Patient is still in the hospital. D/c today she believes. According to her last cath change was on Wednesday or Wednesday. Patient is schedule for December 06. She asked about a cysto, I told her will have to discuss that at visit. She understood and thank me for the call. * Telephone Encounter - Valdemar Prado MD - 11/06/2024 4:02 PM EDT Patient had some calcifications at the bladder neck previously, did not seem like contraindication to home Tatum change. Would simply plan on an interval change of Tatum catheter in our office when he is due on a day were provider is in office as well in case there is any difficulty. Thx, HM * Telephone Encounter - Kate Chakraborty LPN - 11/06/2024 3:[address] Prado, Please advise. I do not see in your single office visit note, anywhere stating that the patient cannot have changes with HH. Patient is currently admitted. Saw Dr Villareal on 05/01/24. He has a follow up visit scheduled with Dr Smith on 01/03/25 and you on 05/22/25. Would you like to place orders for HH to manage changes until established with our care. He is currently established with [facility] for HH. Thank you, Kate SMITH * Telephone Encounter - Eulalia Duncan RN - 11/06/2024 1:36 PM EDT Patient currently admitted at [facility] and to be discharged tomorrow 11/07/24. Patient admitted with UTIand has a chronic tatum. mentioned that home health is unable to change per Urology. Catheter changed this admission, but needs to follow up in 2 weeks per attending. Then he will need monthly catheter changes. Can you please assist with scheduling these? prefers [facility] for appointment due to transportation. Thank you. documented in this encounter Plan of Treatment Upcoming Encounters Date Type Department Care Team (Late st Contact Info) Description 11/13/2024 2:20 PM EDT Office Visit Family Practice, Valarie Singh [address] [phone] Chuy Batista MD [address] [id number] 12/02/2024 2:00 PM EDT Imaging Radiology [facility] [address] [place] [phone] 12/06/2024 10:00 AM EDT Nurse Only Urology, [facility] [address] [place] [phone] [facility], Nurse Urology [facility] [address] [place] [address] 12/08/2024 1:00 PM EDT Cardiac Studies Cardiac Studies, Valarie Ybarra [address] [id number] 01/03/2025 3:00 PM EDT Procedure Only Urology Miri Orozco [address] [place] [id number] Willi Smith Jr., MD [address] [id number] 01/10/2025 9:30 AM EDT Office Visit Hematology/Oncology [facility] [address] [facility] [place] [address] Xavi Gramajo MD [address] [facility] [place] [address] 05/22/2025 10:45 AM EDT Office Visit Urology, [facility] [address] [phone] Valdemar Prado MD [address] [place] [address] Health Maintenance Due Date Last Done Comments Albumin/Creatinine Ratio 1963 DTap/Tdap Vaccines (1 - Tdap) 1964 Adult Wellness Visit 02/01/2020 01/31/2019 COVID-19 Vaccine ( season) 2024 07/22/2022, 07/22/2022, 02/11/2022, Additional history exists CKD PHOS USE SMARTSET 49556 09/11/202408/17, 09/11/2023, 07/14/2021, Additional history exists Depression Screening 12/26/2024 12/27/2023 GFR 04/12/2025 10/13/2024, 12/0 04/2024, 04/12/2024, Additional history exists CKD HGB USE SMARTSET 90908 10/13/202510/13, 10/13/2024, 07/24/2024, Additional history exists Pneumococcal [...] Power of Attor philipp? No Care Teams Machine Cementer And Folder Relationship Specialty Start Date End Date Chuy Batista MD [address] [id number] PCP - General Family Medicine 09/14/24 documented as of this encounter
--- OUTSIDE RECORDS SUMMARY | 2024-11-12 19:23 | External Medical Summary | Summary of Care ---
Author Name Unknown Organization [facility] Address [address] [place] [address] Phone [phone] Care Team Providers Care Customer Supply Chain Analyst Name Role Phone Chuy Batista MD Primary Care Provider +1- [phone] Encounter Details Date Type Department Care Team (Late st Contact Info) Description 11/03/2024 Telephone Urology, [facility] [address] [facility] [place] [address] Kate Chakraborty [...] mRNA, LNP-s, No Pre serve, 2-Dose Series ([email or web address]) 05/30/2021,10/29/2020,10/08/2020 COVID-19, LNP-s, No Preserve , Prosper-sucrose, [...] Telephone Encounter - Vitaliy Almendarez OSA - 11/03/2024 2:37 PM EDT Placed on wait list * Telephone Encounter - Kate Chakraborty LPN - 11/03/2024 12:27 PM EDT I called and spoke with patients and gave provider recommendations. She states she was unawareof visit with Dr Smith, she was advised to keep scheduled appointment. She noted her disappointment that this appointment was not with Dr Prado. She requested to be on the wait list. * Telephone Encounter - Valdemar Prado MD - 11/03/2024 12:17 PM EDT I have seen the patient once, has seen 2 other urologists since his last visit with myself. Unclearwho the patient has seen last, but my recommendation is he proceed to the ER for acute evaluation considering the complexity of his urologic care. Has an upcoming appointment with Dr. Smith in December,recommend he keep this appointment. Thanks, HM * Telephone Encounter - Kate [...] She states she will not return to [place] for their urology services. Please advise. [phone] documented in this encounter Plan of Treatment Upcoming Encounters Date Type Department Care Team (Late st Contact Info) Description 11/10/2024 12:30 PM EDT Imaging Radiology [facility] [address] [place] [address] 12/08/2024 1:00 PM EDT Cardiac Studies Cardiac Studies, Valarie Patel Tate [address] [place] [phone] 01/03/2025 3:00 PM EDT Procedure Only Urology Miri Orozco [address] [place] [address] Willi Smith Jr., MD [address] [place] [address] 01/10/2025 9:30 AM EDT Office Visit Hematology/Oncology [facility] [address] [facility] [place] [phone] Xavi Gramajo MD [address] [facility] [place] [address] 05/22/2025 10:45 AM EDT Office Visit Urology, [facility] [address] [place] [phone] Valdemar Prado MD [address] [place] [address] Health Maintenance Due Date Last Done Comments Albumin/Creatinine Ratio 1963 DTap/Tdap Vaccines (1 - Tdap) 1964 Adult Wellness Visit 02/01/2020 01/31/2019 CKD PHOS USE SMARTSET 95763 09/11/202408/17, 09/11/2023, 07/14/2021, Additional history exists COVID-19 Vaccine ( season) 2024 08/11/2024, 07/22/2022, 07/22/2022, Additional history exists Depression Screening 12/26/2024 12/27/2023 GFR 04/12/2025 10/13/2024, 12/04/2024, 04/12/2024, Additional history exists CKD HGB USE SMARTSET 65163 10/13/202510/13, 10/13/2024, 07/24/2024, Additional history exists Pneumococcal [...] Power of Attor philipp? No Care Teams Customer Supply Chain Analyst Relationship Specialty Start Date End Date Chuy Batista MD [address] [place] [address] PCP - General Family Medicine 09/14/24 documented as of this encounter
--- OUTSIDE RECORDS SUMMARY | 2024-11-12 19:23 | External Medical Summary | Summary of Care ---
Author Name Unknown Organization [facility] Address [address] [place] [address] Phone [phone] Care Team Providers Care Pantry Cook Name Role Phone Chuy Batista MD Primary Care Provider +1- [phone] Reason for Visit * Reason Onset Date [...] as of this encounter (statuses as of 11/07/2024) Medications Syringe/Needle, Disp, 25G X 1-1/2" 3 [...] Take 119 g by mouth once. Active [facility] Wound/Burn Dressing External [...] as of this encounter (statuses as of 11/07/2024) Active Problems Problem Noted Date Diagnosed Date [...] as of this encounter (statuses as of 11/07/2024) Resolved Problems Problem Noted Date Diagnosed Date [...] as of this encounter (statuses as of 11/07/2024) Immunizations Name Administration Dates Next Due COVID-19 [...] is currently established with [facility] for HH. Thank you, Kate SMITH * Telephone Encounter - Eulalia Duncan RN - 11/06/2024 1:36 PM EDT Patient currently admitted at [facility] and to be discharged tomorrow 11/07/24. Patient admitted with UTIand has a chronic tatum. mentioned that home health is unable to change per Urology. Catheter changed this admission, but needs to follow up in 2 weeks per attending. Then he will need monthly catheter changes. Can you please assist with scheduling these? prefers Sukhjinder Tim for appointment due to transportation. Thank you. documented in this encounter Plan of Treatment Upcoming Encounters Date Type Department Care Team (Late st Contact Info) Description 11/10/2024 12:30 PM EDT Imaging Radiology [address] [place] [phone] 11/13/2024 2:20 PM EDT Office Visit Family Practice, Valarie Singh [address] [place] [phone] Chuy Batista MD [address] [place] [address] 12/08/2024 1:00 PM EDT Cardiac Studies Cardiac Studies, Valarie Chaparromarce Ybarra [address] [place] [phone] 01/03/2025 3:00 PM EDT Procedure Only Urology Miri Orozco [address] [facility] [address] [place] [address] Willi Smith Jr., MD [address] [place] [address] 01/10/2025 9:30 AM EDT Office Visit Hematology/Oncology [facility] [phone] Xavi Gramajo [facility] [address] [facility] [address] 05/22/2025 10:45 AM EDT Office Visit Urology, [facility] [address] [place] [phone] Valdemar Prado MD [address] [place] [address] Health Maintenance Due Date Last Done Comments Albumin/Creatinine Ratio 1963 DTap/Tdap Vaccines (1 - Tdap) 1964 Adult Wellness Visit 02/01/2020 01/31/2019 COVID-19 Vaccine ( season) 2024 07/22/2022, 07/22/2022, 02/11/2022, Additional history exists CKD PHOS USE SMARTSET 36987 09/11/202408/17, 09/11/2023, 07/14/2021, Additional history exists Depression Screening 12/26/2024 12/27/2023 GFR 04/12/2025 10/13/2024, 12/0 04/2024, 04/12/2024, Additional history exists CKD HGB USE SMARTSET 03879 10/13/202510/13, 10/13/2024, 07/24/2024, Additional history exists Pneumococcal [...] Power of Attor philipp? No Care Teams Pantry Cook Relationship Specialty Start Date End Date Chuy Batista MD [address] [place] [address] PCP - General Family Medicine 09/14/24 documented as of this encounter
--- OUTSIDE RECORDS SUMMARY | 2024-11-12 19:23 | External Medical Summary | Summary of Care ---
Author Name Unknown Organization [facility] Address [address] [facility] [place] [address] Phone [phone] Care Team Providers Care Taker Off Hemp Fiber Name Role Phone Chuy Batista MD Primary Care Provider +1- [phone] Encounter Details Date Type Department Care Team (Late st Contact Info) Description 11/03/2024 Telephone Urology, [facility] [address] [facility] [place] [address] Kate Chakraborty LPN [...] mRNA, LNP-s, No Pre serve, 2-Dose Series ([employer]) 05/30/2021,10/29/2020,10/08/2020 COVID-19, LNP-s, No Preserve , Prosper-sucrose, [...] She states she will not return to [place] for their urology services. Please advise. [phone] documented in this encounter Plan of Treatment Upcoming Encounters Date Type Department Care Team (Late st Contact Info) Description 11/10/2024 12:30 PM EDT Imaging Radiology [facility]st [facility] [address] [place] [address] 12/08/2024 1:00 PM EDT Cardiac Studies Cardiac Studies, Valarie Patel Tate [address] [place] [phone] 01/03/2025 3:00 PM EDT Procedure Only Urology Miri Orozco [address] [place] [address] Willi Smith Jr., MD [address] [place] [address] 01/10/2025 9:30 AM EDT Office Visit Hematology/Oncology [facility] [address] [facility] [place] [phone] Xavi Gramajo MD [address] [facility] [place] [address] 05/22/2025 10:45 AM EDT Office Visit Urology, [facility] [address] [place] [phone] Valdemar Prado MD [address] [place] [address] Health Maintenance Due Date Last Done Comments Albumin/Creatinine Ratio 1963 DTap/Tdap Vaccines (1 - Tdap) 1964 Adult Wellness Visit 02/01/2020 01/31/2019 CKD PHOS USE SMARTSET 96981 09/11/202408/17, 09/11/2023, 07/14/2021, Additional history exists COVID-19 Vaccine ( season) 2024 08/11/2024, 07/22/2022, 07/22/2022, Additional history exists Depression Screening 12/26/2024 12/27/2023 GFR 04/12/2025 10/13/2024, 12/04/2024, 04/12/2024, Additional history exists CKD HGB USE SMARTSET 24361 10/13/202510/13, 10/13/2024, 07/24/2024, Additional history exists Pneumococcal [...] Power of Attor philipp? No Care Teams Taker Off Hemp Fiber Relationship Specialty Start Date End Date Chuy Batista MD [address] [place] [address] PCP - General Family Medicine 09/14/24 documented as of this encounter
--- OUTSIDE RECORDS SUMMARY | 2024-11-12 19:23 | External Medical Summary | Summary of Care ---
Author Name Unknown Organization [facility] Address [address] [place] [address] Phone [phone] Care Team Providers Care Cellular Tower Climber Name Role Phone Chuy Batista MD Primary Care Provider +1- [phone] Encounter Details Date Type Department Care Team (Late st Contact Info) Description 11/03/2024 Telephone Urology, [facility] [address] [facility] [place] [address] Kate Chakraborty LPN [...] mRNA, LNP-s, No Pre serve, 2-Dose Series ([employer]) 05/30/2021,10/29/2020,10/08/2020 COVID-19, LNP-s, No Preserve , Prosper-sucrose, [...] She states she will not return to [place] for their urology services. Please advise. [phone] documented in this encounter Plan of Treatment Upcoming Encounters Date Type Department Care Team (Late st Contact Info) Description 11/10/2024 12:30 PM EDT Imaging [facility] [address] [place] [address] 12/08/2024 1:00 PM EDT Cardiac Studies Cardiac Studies, Valarie Patel [address] [place] [phone] 01/03/2025 3:00 PM EDT Procedure Only Urology Miri Orozco [address] [place] [address] Willi Smith Jr., MD [address] [place] [address] 01/10/2025 9:30 AM EDT Office Visit Hematology/Oncology [facility] [address] [facility] [place] [place] [phone] Xavi Gramajo MD [address] [facility] [place] [address] 05/22/2025 10:45 AM EDT Office Visit Urology, [facility] [address] [place] [phone] Valdemar Prado MD [address] [place] [address] Health Maintenance Due Date Last Done Comments Albumin/Creatinine Ratio 1963 DTap/Tdap Vaccines (1 - Tdap) 1964 Adult Wellness Visit 02/01/2020 01/31/2019 CKD PHOS USE SMARTSET 61381 09/11/202408/17, 09/11/2023, 07/14/2021, Additional history exists COVID-19 Vaccine ( season) 2024 08/11/2024, 07/22/2022, 07/22/2022, Additional history exists Depression Screening 12/26/2024 12/27/2023 GFR 04/12/2025 10/13/2024, 12/04/2024, 04/12/2024, Additional history exists CKD HGB USE SMARTSET 06148 10/13/202510/13, 10/13/2024, 07/24/2024, Additional history exists Pneumococcal [...] Power of Attor philipp? No Care Teams Cellular Tower Climber Relationship Specialty Start Date End Date Chuy Batista MD [address] [place] [address] PCP - General Family Medicine 09/14/24 documented as of this encounter
--- NOTE | 2024-11-12 19:42 | Emergency Department Note ---
Impression & Plan Cellulitis, Mild cognitive impairment, Urinary tract infection associated with indwelling urethral catheter ED Provider Note NAME: EDWIN ESPANA AGE: 79 SEX: M : 1945 ARRIVES VIA: Ambulance INFORMANT: Patient, ED PROVIDER(S): Deondre Roman MD CHIEF COMPLAINT: Rash MEDICAL DECISION MAKING: Patient presents due to concern for rash to the right lower extremity. IV was established and blood work was obtained and sepsis protocols were initiated. Patient's blood work shows a normal white count hemoglobin of 13 with a normal platelet count. Kidney function is unremarkable. The patient was rolled no evidence of obvious wound or cellulitis to the back or buttock area. Urinalysis does show the possibility of infection but actively being treated. Reviewed the patient's prior urine cultures show sensitivities to cephalosporins. Patient was ordered IV Rocephin. Anticipate the possibility of transitioning the patient to cefdinir to treat for UTI as well as soft tissue skin infection. Patient could also have concomitant dermatitis. I did speak with the patient's via phone and she felt as though that she was incapable of caring for him at this time. I did speak with the on-call hospitalist service and the patient was admitted by Dr. New. Discussion w/ other healthcare providers: Dr. New inpatient medicine service Prior /Outside records reviewed: None Differential diagnosis: Cellulitis, abscess, MRSA infection, DVT, necrotizing fasciitis, dermatitis, drug eruption, allergic reaction, as well as other pathologies were considered. Diagnostics, as interpreted by me: ECG: Normal sinus rhythm, rate of 67, normal intervals, normal axis no ST elevations. Cardiac monitoring: An order was placed for continuous cardiac monitoring. The monitor shows a rate of 69 with sinus rhythm. Patient was placed on pulse oximetry Medical decision rules: None Imaging studies: I informally interpreted the patient's chest x-ray does not show obvious pneumonia or pneumothorax with formal report to follow. HPI: Patient presents due to concern for rash. Patient reportedly did well this around 3 PM today. The patient does notice that he does have some pain to the area of location which is in the right inner thigh. The patient denies any chest pains or shortness of breath. He reports that he did have some chills several days ago along with a brief cough but this is since resolved. The patient does have a history of cognitive issues and sometimes will state "you will need to ask my ." Patient reportedly has been on antibiotics since the time of discharge and was recently discharged from the hospital. I did speak with the over the phone who reports that when he was discharged he was "stopping wet." She stated that the patient was not wearing an adult diaper and was covered in urine. She states that she was concerned that he might have a rash to his back as well as his right leg. PAST MEDICAL HISTORY: See Below PAST SURGICAL HISTORY: See Below SOCIAL HISTORY: See Below HOME MEDICATIONS: See Below ALLERGIES: See Below VITALS: See Below PHYSICAL EXAMINATION: GENERAL: NAD, non-toxic. EYE EXAM: Normal conjunctiva. PERRL, no anisocoria and EOM's grossly intact w/o pain. OROPHARYNX: Moist mucus membranes, grossly normal dentition. NECK: Trachea midline, no stridor. Supple, no nuchal rigidity, no adenopathy, non-tender. No signs of meningismus. FROM of the neck with good chin to chest and neck extension. LUNGS: Clear to auscultation. Normal chest wall mechanics. HEART: NSR, no MRG. ABDOMEN: Abdomen soft, non-tender, no masses, no rebound or guarding. BACK: No CVA TTP. SKIN: No rashes and no bruising. : Catheter with slight erosion through the head of the penis, likely candidal infection, scrotal irritation noted no crepitus and no pain or redness to the perineum UPPER EXTREMITIES: Upper extremities are grossly normal. LOWER EXTREMITIES: Blanching redness to the medial thigh, small area of exposed skin that is tender to palpation, no obvious blistering or crepitus. NEURO EXAM: Awake and alert follows basic commands, cranial nerves II-XII grossly intact, normal speech, moves all 4 extremities. Past Med/Surg History Problem List (Updated 11/12/24 @ 23:46 by Deondre Roman MD) Urinary tract infection associated with indwelling urethral catheter (Acute) Cellulitis (Acute) Cellulitis of right leg Acute UTI (Acute) Confusion Aspiration pneumonia Chronic indwelling Devlin catheter (Acute) Complicated urinary tract infection (Acute) Dementia (Acute) Acute kidney injury superimposed on chronic kidney disease (Acute) Parainfluenza infection (Acute) Influenza A (H1N1) (Acute) Acute hypokalemia (Acute) Delirium Chronic indwelling Devlin catheter (Acute) Mild cognitive impairment (Acute) Hx of prostatic malignancy ~ 2014- s/p Lupron and XRT Obstructive sleep apnea (Acute) Adrenal insufficiency (Acute 06/04/14) Bladder cancer (Acute) Stage 3 chronic kidney disease (Acute) History of pulmonary embolism hx "many years ago" unknown etiology Aortic stenosis Mild per 12/2022 ECHO -follows annually with cardiology Medical History Weakness Recurrent UTI Anxiety Elevated blood pressure reading Complicated UTI (urinary tract infection) Myocarditis Primary bladder malignant neoplasm Orthostatic hypotension Coagulopathy History of DVT (deep vein thrombosis) hx "many years ago" unknown etiology acute on chronic DVT during 12/2022 [facility] admission- Coumadin d/c'ed due to anemia and hematuria; IVC filter placed 12/28/22 COPD (chronic obstructive pulmonary disease) well controlled. uses Breo daily with exercise Fracture of multiple teeth Sacral pressure sore Ambulatory dysfunction Anemia Urethral stricture Ascending aorta dilation Mild- 4.4cm per 11/2022 ECHO Obesity Venous insufficiency (chronic) (peripheral) Radiation cystitis Kidney stones x1 episode. no surgery needed. Cardiac arrest hx r/t IV Contrast Dye "many years ago" Allergic rhinitis Contrast media allergy Hiatal hernia Surgical History S/P IVC filter S/P cataract extraction History of right cataract extraction History of colonoscopy H/O sinus surgery History of appendectomy S/P TURP (status post transurethral resection of prostate) Status post cystoscopy (11/07/13) Family History Father Prostate cancer Brother Prostate cancer Mother Thyroid cancer Cancer Other No family history of adverse response to anesthesia Social History Smoking Status: Never smoker Tobacco Type: Cigarettes Second Hand Exposure: No; Do You Dip or Chew Tobacco: No; Hx Alcohol Use: Yes Alcohol type: beer Alcohol Intake Frequency: Monthly or Less Hx Substance Use: No Preferred Language: Bengali Communication Ability: Effective Visual Impairment: Limited Hearing Ability: Normal Art Gallery Director Required: No Beliefs That Will Affect Care: None marital status: Current Living Situation: Spouse Current Living Situation Comment: [facility] current occupational status: retired How many Children do You have: 0 Feels Safe at Home: Yes Diet: regular during the past year weight has: decreased > 10 lbs Seatbelt Use: always Do you think of yourself as: straight/heterosexual Gender Identity: Male Assistive Devices: Bedside Commode, Hospital Bed and Walker Allergies Allergies Allergy/AdvReac Type Severity Reaction Status Date / Time Iodinated Contrast Media Allergy Severe LOVERSOL---CARDIAC Verified 11/12/24 20:[address] CONTRAST clindamycin Allergy Intermediate Rash Verified 11/12/24 20:27 cranberry Allergy Unknown Unknown Verified 11/12/24 20:27 chocolate flavor AdvReac Severe DIARRHEA/ Verified 11/12/24 20:27 Cannot take, interacts w/ medications. pembrolizumab [From Incont] AdvReac Intermediate myocarditis Verified 11/12/24 20:27 Home Meds Home Medications Medication Instructions Recorded Confirmed mirabegron 25 mg tablet,extended 25 mg PO DAILY 07/28/24 11/12/24 release 24 hr (Myrbetriq) albuterol sulfate 90 mcg/actuation 2 puff inhalation Q6H PRN 08/21/24 11/12/24 aerosol inhaler Shortness Of Breath Or Wheezing fludrocortisone 0.1 mg tablet 0.1 mg PO DAILY 08/21/24 11/12/24 ferrous sulfate 325 mg (65 mg 325 mg PO 3XWK 11/03/24 11/12/24 iron) tablet,delayed release hydrocortisone 10 mg tablet 10 mg PO .DAILY @ 1500 11/03/24 11/12/24 (Cortef) magnesium chloride 64 mg 64 mg PO DAILY 11/03/24 11/12/24 (magnesium chloride) tablet,delayed release Previous Rx's Medication Instructions Recorded acetaminophen 325 mg tablet 650 mg (2 x 325 mg) PO Q4H PRN 06/08/24 fever or pain #30 tabs ascorbic acid (vitamin C) 1,000 mg 1,000 mg PO DAILY #30 tabs 06/08/24 tablet cholecalciferol (vitamin D3) 125 125 mcg PO DAILY #30 tabs 06/08/24 mcg (5,000 unit) tablet (Vitamin D3) cyanocobalamin (vitamin B-12) 1,000 mcg PO DAILY #30 tabs 06/08/24 1,000 mcg tablet epinephrine 0.3 mg/0.3 mL 0.3 mg (0.3 mL) IM UD PRN 06/08/24 injection, auto-injector Anaphylaxis #3 ea fluticasone fur. 200 mcg-umeclid 1 inh inhalation DAILY #1 ea 06/08/24 62.5 mcg-vilant 25 mcg inhalat.powder (Trelegy Ellipta) lidocaine 5 % topical patch 2 patch transdermal DAILY #20 ea 06/08/24 memantine 10 mg tablet 10 mg PO BID #60 tabs 06/08/24 multivitamin with minerals-folic 1 tab PO DAILY #30 tabs 06/08/24 acid 200 mcg chewable tablet (Multivitamin Gummies) omeprazole 20 mg capsule,delayed 20 mg PO DAILY #30 caps 06/08/24 release solifenacin 5 mg tablet 5 mg PO DAILY #30 tabs 06/08/24 hydrocortisone 10 mg tablet 20 mg (2 x 10 mg) PO QAM #0 tabs 07/07/24 (Cortef) amoxicillin 875 mg-potassium 1 tab PO BID #10 tabs 11/10/24 clavulanate 125 mg tablet Results & Data (ED) Vital Signs Vital Signs - 24 hr 11/12/24 19:24 11/12/24 19:25 11/12/24 21:00 Temperature 36.3 C L Temperature Source Oral Pulse Rate 72 73 Pulse Rate [Apical] 67 Respiratory Rate 18 18 Respiratory Effort / Characteristics Respiratory Depth Respiratory Pattern Blood Pressure 173/91 H Blood Pressure [Right Arm] 169/128 H Blood Pressure Mean 118 Blood Pressure Mean [Right Arm] 141 Pulse Oximetry 100 100 Oxygen Delivery Method Room Air Room Air Oxygen Flow Rate Sepsis Recent Fever Within 48 Hours Yes Sepsis New/Unexplained Change in Mental Status No Sepsis Action Taken by Nursing No Action Required 11/12/24 22:00 11/12/24 23:00 Temperature Temperature Source Pulse Rate Pulse Rate [Apical] 67 70 Respiratory Rate 18 18 Respiratory Effort / Characteristics Non-Labored Respiratory Depth Normal Respiratory Pattern Regular Blood Pressure Blood Pressure [Right Arm] 161/90 H 155/90 H Blood Pressure Mean Blood Pressure Mean [Right Arm] 113 111 Pulse Oximetry 100 100 Oxygen Delivery Method Room Air Nasal Cannula Oxygen Flow Rate 2 Sepsis Recent Fever Within 48 Hours Sepsis New/Unexplained Change in Mental Status Sepsis Action Taken by [facility] Medications Current Medication List: was personally reviewed by me Laboratory Data Attestation: I reviewed the patient's lab results. 11/12/24 19:49 11/12/24 19:49 Lab Results 11/12/24 Range/Units 19:49 WBC 7.27 (4.8-10.8) K/ul RBC 4.68 L (4.70-6.10) M/uL Hgb 13.2 L (14.0-18.0) g/dl Hct 40.0 L (42.0-52.0) % MCV 85.5 (80.0-100.0) fL MCH 28.2 (25.0-34.0) pg MCHC 33.0 (32.0-36.0) g/dL RDW Std Deviation 49.0 H (36.4-46.3) fL RDW Coeff of Robert 15.8 H (11.5-14.5) % Plt Count 226 (130-400) K/uL MPV 8.9 L (9.4-12.4) fL Immature Gran % (Auto) 0.3 % Neut % (Auto) 58.1 % Lymph % (Auto) 32.9 % Whitman % (Auto) 6.2 % Eos % (Auto) 2.1 % Baso % (Auto) 0.4 % Neut # (Auto) 4.23 (1.40-6.50) K/uL Lymph # (Auto) 2.39 (1.20-3.40) K/uL Whitman # (Auto) 0.45 (0.11-0.59) K/uL Eos # (Auto) 0.15 (0.00-0.50) K/uL Baso # (Auto) 0.03 (0.00-0.20) K/uL Immature Gran # (Auto) 0.02 (0.01-0.20) K/uL Sodium 141 (136-145) mmol/L Potassium 3.8 (3.5-5.1) mmol/L Chloride 109 H (98-107) mmol/L Carbon Dioxide 24 (21-32) mmol/L Anion Gap 8 (3-11) BUN 16 (6-23) mg/dl Creatinine 1.25 (0.6-1.4) mg/dl Est Cr Clr Drug Dosing 63.7 ml/min eGFR 58.94 BUN/Creatinine Ratio 12.8 (10-20) Glucose 93 (70-99(Fasting)) mg/dl Lactate 2.3 H* (0.4-2.0) mmol/L Calcium 9.3 (8.6-10.3) mg/dl Magnesium 1.8 (1.7-2.4) mg/dl Total Bilirubin 0.6 (0.2-1.0) mg/dl Direct Bilirubin 0.1 (0-0.2) mg/dl AST 13 (13-39) U/L ALT 13 (7-52) U/L Alkaline Phosphatase 93 (34-104) U/L Troponin I High Sens 5.0 (0-20) pg/ml Total Protein 7.0 (6.0-8.3) gm/dl Albumin 3.9 (3.4-5.0) gm/dl Procalcitonin 0.07 (0-0.5) ng/ml Administered Medications Discontinued Medications Ceftriaxone Sodium (Rocephin) 2,000 mg in 50 mls @ 100 mls/hr IV NOW STA Stop: 11/12/24 21:20 Last Infusion: 11/12/24 21:51 Dose: Infused Documented By: Admin: 11/12/24 21:21 Dose: 100 mls/hr Documented By: NRB Imaging Data Radiologist's Impression: Chest X-Ray 11/12/24 19:38 Exam(s): XR CXR 1 VIEW EXAM: XR Chest, 1 View CLINICAL HISTORY: Reason for exam: Sepsis. TECHNIQUE: Frontal view of the chest. COMPARISON: September 23, 2024 FINDINGS: Lungs: No consolidation. No overt edema. Unchanged scarring versus atelectasis at the left base. Pleural space: No pleural effusion. No pneumothorax. Heart: Unremarkable. No cardiomegaly. IMPRESSION: No acute cardiopulmonary abnormality. Electronically signed by: Orlando Lassiter MD 11/12/24 22:03 PM Discharge Plan Visit Data Chief Complaint: Rash Stated Complaint: RASH ON LEG, ON AMOX FOR UTI ED Provider: Deondre Roman Discharge Problem: Cellulitis, Mild cognitive impairment, Urinary tract infection associated with indwelling urethral catheter Discharge Instructions Interventions: ED Discharge Assessment Last Done: 11/12/24 23:36 Discharge Problem: Cellulitis Qualifiers: Site of cellulitis: extremity Site of cellulitis of extremity: lower extremity Laterality: right Qualified Code(s): L03.115 - Cellulitis of right lower limb Urinary tract infection associated with indwelling urethral catheter Qualifiers: Encounter type: initial encounter Qualified Code(s): T83.511A - Infection and inflammatory reaction due to indwelling urethral catheter, initial encounter; N39.0 - Urinary tract infection, site not specified
[2024-11-12 20:09] LABS: Basophils # (auto) 0.03 K/uL (0.00-0.20); Basophils % (auto) 0.4 %; Eosinophils # (auto) 0.15 K/uL (0.00-0.50); Eosinophils % (auto) 2.1 %; Hemoglobin 13.2 g/dl (14.0-18.0); Immature Granulocytes # (auto) 0.02 K/uL (0.01-0.20); Immature Granulocytes % (auto) 0.3 %; Lymphocytes # (auto) 2.39 K/uL (1.20-3.40); Lymphocytes % (auto) 32.9 %; Mean Corpuscular Hemoglobin 28.2 pg (25.0-34.0); Mean Corpuscular Volume 85.5 fL (80.0-100.0); Mean Platelet Volume 8.9 fL (9.4-12.4); Monocytes # (auto) 0.45 K/uL (0.11-0.59); Monocytes % (auto) 6.2 %; Neutrophils # (auto) 4.23 K/uL (1.40-6.50); Neutrophils % (auto) 58.1 %; Platelet Count 226 K/uL (130-400); RDW Coefficient of Variation 15.8 % (11.5-14.5); Red Blood Count 4.68 M/uL (4.70-6.10); White Blood Count 7.27 K/ul (4.8-10.8)
[2024-11-12 20:21] LABS: Albumin Level 3.9 gm/dl (3.4-5.0); BUN Creatinine Ratio 12.8 (10-20); Bilirubin Direct 0.1 mg/dl (0-0.2); Bilirubin,Total 0.6 mg/dl (0.2-1.0); Calcium 9.3 mg/dl (8.6-10.3); Creatinine Clr Calc Pharmacy 63.7 ml/min; Magnesium 1.8 mg/dl (1.7-2.4); Potassium 3.8 mmol/L (3.5-5.1)
[2024-11-12 21:16] LABS: Appearance Urine Clear (Clear); Bacteria Urine Automated 1+ (None Seen); Bilirubin Urine Negative (Negative); Blood Urine 2+ (Negative); Color Urine Yellow; Epithelial Cell Urine Auto 0-2 /hpf (0-2); Glucose Urine UA Negative (Negative); Ketones Urine Negative (Negative); Leukocyte Esterase Urine 3+ (Negative); Nitrite Urine Negative (Negative); Protein Urine Negative (Negative); RBC Urine Automated >20 /hpf (0-2); Specific Gravity Urine 1.006 (1.000-1.030); Urobilinogen Urine Negative (Negative); WBC Urine Automated >50 /hpf (0-5); pH Urine 7.5 (4.5-7.5)
[2024-11-12] MEDS: cefTRIAXone SODIUM 2,000 MG/50 ML BAG IV STA (21:21)
--- NOTE | 2024-11-12 22:05 | XRay Report ---
Exam(s): XR CXR 1 VIEW EXAM: XR Chest, 1 View CLINICAL HISTORY: Reason for exam: Sepsis. TECHNIQUE: Frontal view of the chest. COMPARISON: September 23, 2024 FINDINGS: Lungs: No consolidation. No overt edema. Unchanged scarring versus atelectasis at the left base. Pleural space: No pleural effusion. No pneumothorax. Heart: Unremarkable. No cardiomegaly. IMPRESSION: No acute cardiopulmonary abnormality. Electronically signed by: Orlando Lassiter MD 11/12/24 22:03 PM
--- NOTE | 2024-11-12 23:18 | History & Physical Report ---
Date of Service November 12, 2024 Assessment & Plan (1) Cellulitis of right leg: Plan: 79-year-old male with past medical history significant for adrenal insufficiency on chronic steroids, bronchial asthma/COPD, obstructive sleep apnea, history of DVT/PE s/p IVC filter no longer on anticoagulation due to bleeding issues, bladder cancer s/p surgery off of Keytruda secondary to development of myocarditis, prostate cancer s/p radiation therapy, valvular heart disease ,moderate aortic stenosis, mild aortic regurgitation, hypertension, orthostatic hypotension, chronic anemia, mild cognitive impairment and dementia, ambulatory dysfunction ambulates with a walker, urinary incontinence, currently on chronic Devlin, chronic venous insufficiency, CKD stage III who lives at home with his was brought in because of erythematous rash on the inner side of his right thigh extending to his groin and back. states rash started yesterday but got worse today. Patient denies any fevers or itchiness or pain. thinks he was warm. Patient denies any nausea. Denies any chest pain. Denies shortness of breath. Denies abdominal pain. states ,when he was going home his catheter leaked and there were no depends and he was wet. Currently afebrile. Hemodynamically stable. Denies headache. No runny nose or sore throat. Resting comfortably.Patient was recently in the hospital for confusion thought to be from UTI and also VIOLETA and was discharged on Augmentin on 11/10/2024. Cellulitis of right leg Possible component of contact dermatitis and Sylvia infection Empiric Rocephin Will do a dose of Diflucan Nystatin/triamcinolone cream Will check Dopplers for any DVT- came back as acute dvt. Notified .Started on iv heparin. Initial lactic 2.3 and repeat is 1.7 Gentle fluids Monitor the response Bladder cancer status post surgery. Keytruda was stopped because of myocarditis on cardiac MRI Prostate cancer s/p radiation treatment and developed radiation-induced cystitis Chronic indwelling Devlin catheter History of frequent UTIs Devlin care Cognitive impairment On memantine Monitor for delirium History of adrenal insufficiency Continue home hydrocortisone on fludrocortisone. Ambulatory dysfunction Ambulates with a walker PT OT when stable Asthma COPD Obstructive sleep apnea Continue home inhalers Monitor oxygen saturations History of orthostatic hypotension Continue home fludrocortisone History of DVT and PE Not on anticoag secondary to bleeding historyradiation-induced cystitis Status post IVC filter started on iv heparin tonight for acute dvt. Immunosuppression due to chronic steroid use GERD On omeprazole DVT px iv heparin History of Present Illness Chief Complaint: Right leg cellulitis Primary Care Provider: Deondre Hill MD 79-year-old male with past medical history significant for adrenal insufficiency on chronic steroids, bronchial asthma/COPD, obstructive sleep apnea, history of DVT/PE s/p IVC filter no longer on anticoagulation due to bleeding issues, bladder cancer s/p surgery off of Keytruda secondary to development of myocarditis, prostate cancer s/p radiation therapy, valvular heart disease ,moderate aortic stenosis, mild aortic regurgitation, hypertension, orthostatic hypotension, chronic anemia, mild cognitive impairment and dementia, ambulatory dysfunction ambulates with a walker, urinary incontinence, currently on chronic Devlin, chronic venous insufficiency, CKD stage III who lives at home with his was brought in because of erythematous rash on the inner side of his right thigh extending to his groin and back. states rash started yesterday but got worse today. Patient denies any fevers or itchiness or pain. thinks he was warm. Patient denies any nausea. Denies any chest pain. Denies shortness of breath. Denies abdominal pain. states ,when he was going home his catheter leaked and there were no depends and he was wet. Currently afebrile. Hemodynamically stable. Denies headache. No runny nose or sore throat. Resting comfortably.Patient was recently in the hospital for confusion thought to be from UTI and also VIOLETA and was discharged on Augmentin on 11/10/2024. Past medical history. As mentioned above Past surgical history. Cataract surgery. Removal of appendix. Social history. . No smoking. No alcohol use. No drug use. Family history. Brother had prostate cancer. Father had prostate cancer. Mother had cancer. Allergies Allergy/AdvReac Type Severity Reaction Status Date / Time Iodinated Contrast Media Allergy Severe LOVERSOL---CARDIAC Verified 11/12/24 20:[address] CONTRAST clindamycin Allergy Intermediate Rash Verified 11/12/24 20:27 cranberry Allergy Unknown Unknown Verified 11/12/24 20:27 chocolate flavor AdvReac Severe DIARRHEA/ Verified 11/12/24 20:27 Cannot take, interacts w/ medications. pembrolizumab [From Keytruda] AdvReac Intermediate myocarditis Verified 11/12/24 20:27 Home Medications Medication Instructions Recorded Confirmed Type acetaminophen 325 mg tablet 650 mg (2 x 325 mg) PO Q4H PRN 06/08/24 11/12/24 Rx fever or pain #30 tabs ascorbic acid (vitamin C) 1,000 mg 1,000 mg PO DAILY #30 tabs 06/08/24 11/12/24 Rx tablet cholecalciferol (vitamin D3) 125 125 mcg PO DAILY #30 tabs 06/08/24 11/12/24 Rx mcg (5,000 unit) tablet (Vitamin D3) cyanocobalamin (vitamin B-12) 1,000 mcg PO DAILY #30 tabs 06/08/24 11/12/24 Rx 1,000 mcg tablet epinephrine 0.3 mg/0.3 mL 0.3 mg (0.3 mL) IM UD PRN 06/08/24 11/12/24 Rx injection, auto-injector Anaphylaxis #3 ea fluticasone fur. 200 mcg-umeclid 1 inh inhalation DAILY #1 ea 06/08/24 11/12/24 Rx 62.5 mcg-vilant 25 mcg inhalat.powder (Trelegy Ellipta) lidocaine 5 % topical patch 2 patch transdermal DAILY #20 ea 06/08/24 11/12/24 Rx memantine 10 mg tablet 10 mg PO BID #60 tabs 06/08/24 11/12/24 Rx multivitamin with minerals-folic 1 tab PO DAILY #30 tabs 06/08/24 11/12/24 Rx acid 200 mcg chewable tablet (Multivitamin Gummies) omeprazole 20 mg capsule,delayed 20 mg PO DAILY #30 caps 06/08/24 11/12/24 Rx release solifenacin 5 mg tablet 5 mg PO DAILY #30 tabs 06/08/24 11/12/24 Rx hydrocortisone 10 mg tablet 20 mg (2 x 10 mg) PO QAM #0 tabs 07/07/24 11/12/24 Rx (Cortef) mirabegron 25 mg tablet,extended 25 mg PO DAILY 07/28/24 11/12/24 History release 24 hr (Myrbetriq) albuterol sulfate 90 mcg/actuation 2 puff inhalation Q6H PRN 08/21/24 11/12/24 History aerosol inhaler Shortness Of Breath Or Wheezing fludrocortisone 0.1 mg tablet 0.1 mg PO DAILY 08/21/24 11/12/24 History ferrous sulfate 325 mg (65 mg 325 mg PO 3XWK 11/03/24 11/12/24 History iron) tablet,delayed release hydrocortisone 10 mg tablet 10 mg PO .DAILY @ 1500 11/03/24 11/12/24 History (Cortef) magnesium chloride 64 mg 64 mg PO DAILY 11/03/24 11/12/24 History (magnesium chloride) tablet,delayed release amoxicillin 875 mg-potassium 1 tab PO BID #10 tabs 11/10/24 11/12/24 Rx clavulanate 125 mg tablet Past Med/Surg History Problem List (Updated 11/12/24 @ 23:46 by Deondre Roman MD) Urinary tract infection associated with indwelling urethral catheter (Acute) Cellulitis (Acute) Cellulitis of right leg Acute UTI (Acute) Confusion Aspiration pneumonia Chronic indwelling Devlin catheter (Acute) Complicated urinary tract infection (Acute) Dementia (Acute) Acute kidney injury superimposed on chronic kidney disease (Acute) Parainfluenza infection (Acute) Influenza A (H1N1) (Acute) Acute hypokalemia (Acute) Delirium Chronic indwelling Devlin catheter (Acute) Mild cognitive impairment (Acute) Hx of prostatic malignancy ~ 2013- s/p Lupron and XRT Obstructive sleep apnea (Acute) Adrenal insufficiency (Acute 06/04/14) Bladder cancer (Acute) Stage 3 chronic kidney disease (Acute) History of pulmonary embolism hx "many years ago" unknown etiology Aortic stenosis Mild per 12/2022 ECHO -follows annually with cardiology Medical History Weakness Recurrent UTI Anxiety Elevated blood pressure reading Complicated UTI (urinary tract infection) Myocarditis Primary bladder malignant neoplasm Orthostatic hypotension Coagulopathy History of DVT (deep vein thrombosis) hx "many years ago" unknown etiology acute on chronic DVT during 12/2022 [facility] admission- Coumadin d/c'ed due to anemia and hematuria; IVC filter placed 12/28/22 COPD (chronic obstructive pulmonary disease) well controlled. uses Breo daily with exercise Fracture of multiple teeth Sacral pressure sore Ambulatory dysfunction Anemia Urethral stricture Ascending aorta dilation Mild- 4.4cm per 11/2022 ECHO Obesity Venous insufficiency (chronic) (peripheral) Radiation cystitis Kidney stones x1 episode. no surgery needed. Cardiac arrest hx r/t IV Contrast Dye "many years ago" Allergic rhinitis Contrast media allergy Hiatal hernia Surgical History S/P IVC filter S/P cataract extraction History of right cataract extraction History of colonoscopy H/O sinus surgery History of appendectomy S/P TURP (status post transurethral resection of prostate) Status post cystoscopy (11/07/13) Family History Father Prostate cancer Brother Prostate cancer Mother Thyroid cancer Cancer Other No family history of adverse response to anesthesia Social History Smoking Status: Never smoker Tobacco Type: Cigarettes Second Hand Exposure: No; Do You Dip or Chew Tobacco: No; Hx Alcohol Use: Yes Alcohol type: beer Alcohol Intake Frequency: Monthly or Less Hx Substance Use: No Preferred Language: Khmer Communication Ability: Effective Visual Impairment: Limited Hearing Ability: Normal Level Vial Marker Required: No Beliefs That Will Affect Care: None marital status: Current Living Situation: Spouse Current Living Situation Comment: [facility] current occupational status: retired How many Children do You have: 0 Feels Safe at Home: Yes Safety Concerns: Feels Safe At This Time Diet: regular during the past year weight has: decreased > 10 lbs Seatbelt Use: always Do you think of yourself as: straight/heterosexual Gender Identity: Male Assistive Devices: Walker Review of Systems Review of Systems: All systems reviewed & are unremarkable except as noted in HPI & below Physical Exam Physical Exam: General- Not in distress Head- atraumatic Eyes- PERRL. ENT- oropharynx clear Neck- supple, no JVD. Lungs- clear to auscultation no wheezing or crackles Heart- regular rate and rhythm; no murmur, no gallop. Abdomen- normal bowel sounds, soft, nontender, no distension Extremities- right medial aspect of thigh erythematous extending to groin Neuro- alert, oriented PERRL, no facial palsy; no dysarthria; moves extremities Results & Data Results & Data Vital Signs (Past 12 Hours) Vital Signs Temp Pulse Pulse Resp BP BP Pulse Ox 11/12/24 23:00 70 18 155/90 H 100 11/12/24 22:00 67 18 161/90 H 100 11/12/24 21:00 67 18 169/128 H 100 11/12/24 19:25 73 11/12/24 19:24 36.3 C L 72 18 173/91 H 100 O2 Del Method O2 Flow Rate 11/12/24 23:00 Nasal Cannula 2 11/12/24 22:00 Room Air 11/12/24 21:00 Room Air 11/12/24 19:25 11/12/24 19:24 Room Air Diagnostic Findings Laboratory Results WBC 7.27 K/ul (4.8-10.8) 11/12/24 19:49 RBC 4.68 M/uL (4.70-6.10) L 11/12/24 19:49 Hgb 13.2 g/dl (14.0-18.0) L 11/12/24 19:49 Hct 40.0 % (42.0-52.0) L 11/12/24 19:49 MCV 85.5 fL (80.0-100.0) 11/12/24 19:49 MCH 28.2 pg (25.0-34.0) 11/12/24 19:49 MCHC 33.0 g/dL (32.0-36.0) 11/12/24 19:49 RDW Std Deviation 49.0 fL (36.4-46.3) H 11/12/24 19:49 RDW Coeff of Robert 15.8 % (11.5-14.5) H 11/12/24 19:49 Plt Count 226 K/uL (130-400) 11/12/24 19:49 MPV 8.9 fL (9.4-12.4) L 11/12/24 19:49 Immature Gran % (Auto) 0.3 % 11/12/24 19:49 Neut % (Auto) 58.1 % 11/12/24 19:49 Lymph % (Auto) 32.9 % 11/12/24 19:49 [place] % (Auto) 6.2 % 11/12/24 19:49 Eos % (Auto) 2.1 % 11/12/24 19:49 Baso % (Auto) 0.4 % 11/12/24 19:49 Neut # (Auto) 4.23 K/uL (1.40-6.50) 11/12/24 19:49 Lymph # (Auto) 2.39 K/uL (1.20-3.40) 11/12/24 19:49 [place] # (Auto) 0.45 K/uL (0.11-0.59) 11/12/24 19:49 Eos # (Auto) 0.15 K/uL (0.00-0.50) 11/12/24 19:49 Baso # (Auto) 0.03 K/uL (0.00-0.20) 11/12/24 19:49 Immature Gran # (Auto) 0.02 K/uL (0.01-0.20) 11/12/24 19:49 Sodium 141 mmol/L (136-145) 11/12/24 19:49 Potassium 3.8 mmol/L (3.5-5.1) 11/12/24 19:49 Chloride 109 mmol/L (98-107) H 11/12/24 19:49 Carbon Dioxide 24 mmol/L (21-32) 11/12/24 19:49 Anion Gap 8 (3-11) 11/12/24 19:49 BUN 16 mg/dl (6-23) 11/12/24 19:49 Creatinine 1.25 mg/dl (0.6-1.4) 11/12/24 19:49 Est Cr Clr Drug Dosing 63.7 ml/min 11/12/24 19:49 eGFR 58.94 11/12/24 19:49 BUN/Creatinine Ratio 12.8 (10-20) 11/12/24 19:49 Glucose 93 mg/dl (70-99(Fasting)) 11/12/24 19:49 Lactate 1.7 mmol/L (0.4-2.0) 11/12/24 Unknown Calcium 9.3 mg/dl (8.6-10.3) 11/12/24 19:49 Magnesium 1.8 mg/dl (1.7-2.4) 11/12/24 19:49 Total Bilirubin 0.6 mg/dl (0.2-1.0) 11/12/24 19:49 Direct Bilirubin 0.1 mg/dl (0-0.2) 11/12/24 19:49 AST 13 U/L (13-39) 11/12/24 19:49 ALT 13 U/L (7-52) 11/12/24 19:49 Alkaline Phosphatase 93 U/L (34-104) 11/12/24 19:49 Troponin I High Sens 5.0 pg/ml (0-20) 11/12/24 19:49 Total Protein 7.0 gm/dl (6.0-8.3) 11/12/24 19:49 Albumin 3.9 gm/dl (3.4-5.0) 11/12/24 19:49 Procalcitonin 0.07 ng/ml (0-0.5) 11/12/24 19:49 Urine Color Yellow 11/12/24 Unknown Urine Appearance Clear (Clear) 11/12/24 Unknown Urine pH 7.5 (4.5-7.5) 11/12/24 Unknown Ur Specific [place] 1.006 (1.000-1.030) 11/12/24 Unknown Urine Protein Negative (Negative) 11/12/24 Unknown Urine Glucose (UA) Negative (Negative) 11/12/24 Unknown Urine Ketones Negative (Negative) 11/12/24 Unknown Urine Blood 2+ (Negative) H 11/12/24 Unknown Urine Nitrite Negative (Negative) 11/12/24 Unknown Urine Bilirubin Negative (Negative) 11/12/24 Unknown Urine Urobilinogen Negative (Negative) 11/12/24 Unknown Ur Leukocyte Esterase 3+ (Negative) H 11/12/24 Unknown Urine WBC (Auto) >50 /hpf (0-5) H 11/12/24 Unknown Urine RBC (Auto) >20 /hpf (0-2) H 11/12/24 Unknown U Hyaline Cast (Auto) 11-20 /lpf (0-2) H 11/12/24 Unknown U Epithel Cells (Auto) 0-2 /hpf (0-2) 11/12/24 Unknown Urine Bacteria (Auto) 1+ (None Seen) H 11/12/24 Unknown Urine Yeast Present (None Prsent) A 11/12/24 Unknown Impressions Chest X-Ray 11/12/24 19:38 Exam(s): XR CXR 1 VIEW EXAM: XR Chest, 1 View CLINICAL HISTORY: Reason for exam: Sepsis. TECHNIQUE: Frontal view of the chest. COMPARISON: September 23, 2024 FINDINGS: Lungs: No consolidation. No overt edema. Unchanged scarring versus atelectasis at the left base. Pleural space: No pleural effusion. No pneumothorax. Heart: Unremarkable. No cardiomegaly. IMPRESSION: No acute cardiopulmonary abnormality. Electronically signed by: Orlando Lassiter MD 11/12/24 22:03 PM ECG Additional Comments: ECG. Normal sinus rhythm rate of 67. Nonspecific ST abnormality. No significant changes found. Code Status & VTE Plan VTE Prophylaxis Plan VTE Prophylaxis will be ordered: Yes
[2024-11-12] MEDS ORDERED: ALBUTEROL HFA 8 GM INHALER INH PRN (23:36)
[2024-11-12] MEDS ORDERED: POLYETHYLENE (MIRALAX) 17 GM PACK PO PRN (23:36)
[2024-11-12] MEDS ORDERED: ACETAMINOPHEN 325 MG TAB PO PRN (23:36)
[2024-11-13] MEDS ORDERED: EPINEPHrine INJ 1 MG/ML AMP IM PRN (00:22)
[2024-11-13] MEDS: SODIUM CHLORIDE 0.9% 1,000 ML IV SCH (00:49)
[2024-11-13] MEDS: FLUCONAZOLE 50 MG TAB PO ONE (00:49)
[2024-11-13] MEDS: NYSTATIN/TRIAMCIN OINT 15 GM TUBE EXT SCH (00:58)
[2024-11-13] MEDS: OLANZAPINE 2.5 MG TAB PO STA (01:24)
[2024-11-13] MEDS: OLANZapine 10 MG/2.1 ML SDV IM STA (02:21)
--- NOTE | 2024-11-13 03:18 | Ultrasound Report ---
EXAM: US venous doppler LE RT CLINICAL HISTORY: right leg erythema. dvt? TECHNIQUE: Ultrasound examination of right lower extremity veins was performed in real time and duplex. One or more of the following were performed- spectral analysis, resistive index, waveform analysis, and pulsed Doppler. COMPARISON: 07/01/2024 US FINDINGS: There is possibility small area of nonocclusive thrombus seen in the proximal great saphenous vein approximately 4.6 cm from the saphenofemoral junction. Another small area of nonocclusive thrombus in the proximal femoral vein, femoral vein proximal and distal to this nonocclusive thrombus is compressible. Occlusive thrombus seen in the proximal popliteal vein and small area of occlusive thrombus seen in the distal posterior tibial vein which shows no flow and is noncompressible. Peroneal anterior tibial vein appears patent and compressible. Compression and Augmentation: Multifocal areas of nonocclusive and occlusive thrombus which shows noncompressibility as described above. Additional Findings: No evidence of intraluminal thrombus. IMPRESSION: Multifocal small areas of occlusive and nonocclusive thrombus seen in the great saphenous vein, proximal femoral vein, proximal popliteal and distal posterior tibial vein. Disclaimer: DVT could be missed early in the disease when clot burden is minimal. For patients with moderate and high pretest probability of DVT and negative ultrasound, the [employer] clinical guidelines recommend testing with a D-dimer assay or repeat ultrasound in 5-7 days. If symptoms worsen, the Society of radiologists in ultrasound recommends repeating ultrasound even earlier. [facility] ER was called at [phone] at 2:11 AM [facility], 11/13/2024, and [facility] was informed regarding the presence of critical medical findings in the report. Electronically signed by Jaiden Krishnan 11-13-2024 03:18 AM
[2024-11-13] MEDS: Heparin IV Adult Wt-Based Standard *NO* INITIAL Bolus Protocol IV STA (04:12)
[2024-11-13] MEDS: HEPARIN 25000 UNIT/500 ML D5W 25,000 UNITS/500 ML BAG IV SCH (04:12)
[2024-11-13 04:26] LABS: BUN Creatinine Ratio 12.1 (10-20); Calcium 8.9 mg/dl (8.6-10.3); Creatinine Clr Calc Pharmacy 64.2 ml/min; Magnesium 1.9 mg/dl (1.7-2.4); Potassium 3.3 mmol/L (3.5-5.1)
[2024-11-13 04:57] LABS: Basophils # (auto) 0.03 K/uL (0.00-0.20); Basophils % (auto) 0.4 %; Eosinophils # (auto) 0.22 K/uL (0.00-0.50); Eosinophils % (auto) 3.2 %; Hematocrit (blood only) 38.1 % (42.0-52.0); Hemoglobin 12.7 g/dl (14.0-18.0); Immature Granulocytes # (auto) 0.01 K/uL (0.01-0.20); Immature Granulocytes % (auto) 0.1 %; Lymphocytes % (auto) 30.2 %; Mean Corpuscular Hemoglobin 28.5 pg (25.0-34.0); Mean Corpuscular Hgb Conc 33.3 g/dL (32.0-36.0); Mean Corpuscular Volume 85.4 fL (80.0-100.0); Monocytes % (auto) 10.1 %; Neutrophils # (auto) 3.89 K/uL (1.40-6.50); Platelet Count 210 K/uL (130-400); RDW Coefficient of Variation 15.7 % (11.5-14.5); RDW Standard Deviation 48.6 fL (36.4-46.3); Red Blood Count 4.46 M/uL (4.70-6.10); White Blood Count 6.95 K/ul (4.8-10.8)
[2024-11-13 05:27] LABS: ANTI-Xa, UFH(UnfractionatedHep < 0.10 IU/ml (0.3-0.7)
[2024-11-13] MEDS ORDERED: ENOXAPARIN INJ 40 MG/0.4 ML SYR SQ SCH (08:00)
[2024-11-13] MEDS: ASCORBIC ACID 500 MG TAB PO SCH (08:17)
[2024-11-13] MEDS: CHOLECALCIFEROL 125 MCG (5,000 UNITS) TAB PO SCH (08:18)
[2024-11-13] MEDS: CYANOCOBALAMIN (B-12) 500 MCG TABLET PO SCH (08:18)
[2024-11-13] MEDS: FERROUS SULFATE 325 MG TAB PO SCH (08:19)
[2024-11-13] MEDS: CEROVITE ADV FORMULA TAB PO SCH (08:22)
[2024-11-13] MEDS: MAGNESIUM CHLORIDE W/CALCIUM 64MG DELAYED REL TAB PO SCH (08:22)
[2024-11-13] MEDS: VIBEGRON 75 MG TAB PO SCH (08:22)
[2024-11-13] MEDS: OXYBUTYNIN CHLORIDE XL 5 MG TABCR PO SCH (08:22)
[2024-11-13] MEDS: FLUDROCORTISONE ACETATE 0.1 MG TAB PO SCH (08:23)
[2024-11-13] MEDS: FLUTICASONE FUROATE 200MCG 14 PUFFS/INHALER INH SCH (08:23)
[2024-11-13] MEDS: UMECLIDINIUM/VILANTEROL 62.5/25MCG 7 PUFFS/INHALER INH SCH (08:23)
[2024-11-13] MEDS: MEMANTINE HCL 10 MG TAB PO SCH (08:23)
[2024-11-13] MEDS: PANTOprazole 40 MG TAB PO SCH (08:23)
[2024-11-13] MEDS: LIDOCAINE 5% 1 PATCH TD SCH (08:24)
[2024-11-13] MEDS: HYDROCORTISONE 10 MG TAB PO SCH ×2 (08:24→14:38)
--- NOTE | 2024-11-13 08:31 | Electrocardiogram Report ---
Test Reason : Blood Pressure : */* mmHG Vent. Rate : 67 BPM Atrial Rate : 67 BPM P-R Int : 178 ms QRS Dur : 84 ms QT Int : 418 ms P-R-T Axes : 21 33 35 degrees QTcB Int : 441 ms Poor data quality, interpretation may be adversely affected Normal sinus rhythm Normal ECG When compared with ECG of 23-Sep-2024 20:33, No significant change was found Confirmed by Nain Milner ([id number]) on 11/13/2024 8:30:45 AM Referred By: REFERRED SELF Confirmed By: Nain Milner
[2024-11-13 15:05] LABS: ANTI-Xa, UFH(UnfractionatedHep 0.45 IU/ml (0.3-0.7)
--- NOTE | 2024-11-13 17:35 | Hospitalist Progress Note ---
Date of Service November 13, 2024 Assessment & Plan (1) Cellulitis of right leg: Plan: 79-year-old male with past medical history significant for adrenal insufficiency on chronic steroids, bronchial asthma/COPD, obstructive sleep apnea, history of DVT/PE s/p IVC filter no longer on anticoagulation due to bleeding issues, bladder cancer s/p surgery off of Keytruda secondary to development of myocarditis, prostate cancer s/p radiation therapy, valvular heart disease ,moderate aortic stenosis, mild aortic regurgitation, hypertension, orthostatic hypotension, chronic anemia, mild cognitive impairment and dementia, ambulatory dysfunction ambulates with a walker, urinary incontinence, currently on chronic Devlin, chronic venous insufficiency, CKD stage III who lives at home with his was brought in because of erythematous rash on the inner side of his right thigh extending to his groin and back. states rash started yesterday but got worse today. Patient denies any fevers or itchiness or pain. thinks he was warm. Patient denies any nausea. Denies any chest pain. Denies shortness of breath. Denies abdominal pain. states ,when he was going home his catheter leaked and there were no depends and he was wet. Currently afebrile. Hemodynamically stable. Denies headache. No runny nose or sore throat. Resting comfortably.Patient was recently in the hospital for confusion thought to be from UTI and also VIOLETA and was discharged on Augmentin on 11/10/2024. He is being managed for conditions as documented below Cellulitis of right leg- resolved Presented with a rash involving the right lower extremity with associated swelling and pain Possible component of contact dermatitis and Sylvia infection Empiric Rocephin has been started and will continue for now to cover recent UTI as well Received a dose of Diflucan and will not continue Nystatin/triamcinolone cream has been applied Deep vein thrombosis involving the right lower extremity- increased tendency to develop clot due to history of bladder cancer History of DVT and PE Not on anticoag secondary to bleeding historyradiation-induced cystitis Status post IVC filter Started on iv heparin tonight for acute dvt. Will need to have prolonged anticoagulation if there is no contraindication/complication Excoriation of the skin secondary to irritation from leaking urine History of bladder cancer and chronic Devlin is status His Devlin was changed during his recent hospital admission and prior to discharge The Devlin was leaking even before discharge as per the and over the weekend that joining skin of the pelvis and part of the back above her thighs were read including the scrotum The leaking of urine was not controlled by the nursing staff Urology consult was put in for further management of the catheter Bladder cancer status post surgery. Keytruda was stopped because of myocarditis on cardiac MRI Prostate cancer s/p radiation treatment and developed radiation-induced cystitis Chronic indwelling Devlin catheter History of frequent UTIs Devlin care History of dementia Cognitive impairment On memantine Monitor for delirium History of adrenal insufficiency Continue home hydrocortisone on fludrocortisone. Ambulatory dysfunction Ambulates with a walker PT OT when stable Asthma COPD Obstructive sleep apnea Continue home inhalers Monitor oxygen saturations History of orthostatic hypotension Continue home fludrocortisone Immunosuppression due to chronic steroid use GERD On omeprazole DVT px iv heparin Discussed with the in detail and explained the causes of skin irritation and redness and also deep vein thrombosis Discussed about the management with Lovenox, Coumadin or newer anticoagulation after discussion with the oncologist (2) Urinary tract infection associated with indwelling urethral catheter: Plan: Recent Klebsiella pneumoniae UTI with ongoing treatment with IV ceftriaxone followed by Augmentin on discharge Repeat urine culture has been sent Has been on intravenous ceftriaxone as above (3) Confusion: (4) Dementia: (5) Mild cognitive impairment: (6) Adrenal insufficiency: (7) Bladder cancer: (8) Aortic stenosis: (9) History of pulmonary embolism: Admission and Anticipated Discharge Date Admission Date: November 12, 2024 Subjective 11/13/2024 The patient was seen and examined in medical floor He was admitted with right leg swelling and rash that developed day before Had some ankle pain Denies any other symptoms today and has been feeling a lot better Review of Systems Review of Systems: All systems reviewed and are unremarkable except as noted below Neurologic: Remains pleasantly confused Physical Exam Physical Exam: Lying in bed without any acute distress Constitutional: well developed, well nourished and + ill appearing Eyes: PERRL, conjunctivae normal, anicteric sclerae ENMT: external ear and nose normal, oropharynx normal Neck: trachea midline, no thyromegaly Respiratory: no respiratory distress Auscultation: lungs clear to auscultation bilaterally Cardiovascular: Rate/Rhythm: regular rate and regular rhythm; not tachycardic Heart Sounds: normal S1, normal S2 and + murmur Extremities: + edema ( trace edema bilaterally) Gastrointestinal (Abdomen): Inspection/Auscultation: normal bowel sounds; abdomen not distended Percussion/Palpation: abdomen soft; abdomen nontender Musculoskeletal: No acute arthritis involving any of the joint Skin: Presented with a rash involving the right lower extremity on admission on 11/12/2024. Today at 5:30 PM no rash has been noted in the right lower extremity and does not have any tenderness Neurologic: normal touch/pain/proprioception, moves all extremities and + confused ( pleasantly confused); no focal motor deficits Lymphatic: no cervical or axillary lymphadenopathy Results & Data Results & Data Vital Signs (Past 12 Hours) Vital Signs Temp Pulse Resp BP Pulse Ox O2 Del Method O2 Flow Rate 11/13/24 15:12 36.5 C 76 18 132/79 100 Room Air 11/13/24 12:00 65 13 158/78 H 100 Room Air 11/13/24 10:33 63 12 132/71 99 Room Air 11/13/24 08:30 71 12 149/84 H 99 Room Air 11/13/24 06:00 68 18 128/75 100 Nasal Cannula 2 Laboratory Results Short CBC 11/12/24 11/13/24 11/13/24 Range/Units 19:49 03:45 04:42 WBC 7.27 Cancelled 6.95 (4.8-10.8) K/ul Hgb 13.2 L Cancelled 12.7 L (14.0-18.0) g/dl Hct 40.0 L Cancelled 38.1 L (42.0-52.0) % Plt Count 226 Cancelled 210 (130-400) K/uL BMP 11/12/24 11/13/24 19:49 03:45 Sodium 141 142 Potassium 3.8 3.3 L Chloride 109 H 110 H Carbon Dioxide 24 24 BUN 16 15 Creatinine 1.25 1.24 Glucose 93 93 Calcium 9.3 8.9 Liver Function 11/12/24 Range/Units 19:49 Total Bilirubin 0.6 (0.2-1.0) mg/dl Direct Bilirubin 0.1 (0-0.2) mg/dl AST 13 (13-39) U/L ALT 13 (7-52) U/L Alkaline Phosphatase 93 (34-104) U/L Albumin 3.9 (3.4-5.0) gm/dl Urine 11/12/24 Range/Units Unknown Urine Color Yellow Urine Appearance Clear (Clear) Urine pH 7.5 (4.5-7.5) Ur Specific [place]me 1.006 (1.000-1.030) Urine Protein Negative (Negative) Urine Glucose (UA) Negative (Negative) Medications Administered Current Inpatient Medications Acetaminophen (Acetaminophen 325 Mg Tab) 650 mg PO Q4H PRN PRN Reason: pain/fever Stop: 12/12/24 23:35 Albuterol (Albuterol Hfa 8 Gm Inhaler) 2 puffs INH Q6H PRN PRN Reason: Shortness Of Breath Or Wheezin Stop: 12/12/24 23:35 Ascorbic Acid (Ascorbic Acid 500 Mg Tab) 1,000 mg PO DAILY [facility] Stop: 12/13/24 08:59 Last Admin: 11/13/24 08:17 Dose: 1,000 mg Cyanocobalamin (Cyanocobalamin (B-12) 500 Mcg Tablet) 1,000 mcg PO DAILY [facility] Stop: 12/13/24 08:59 Last Admin: 11/13/24 08:18 Dose: 1,000 mcg Epinephrine HCl (Epinephrine Inj 1 Mg/Ml Amp) 0.3 mg IM UD PRN PRN Reason: Anaphylaxis Stop: 12/13/24 00:21 Ferrous Sulfate (Ferrous Sulfate 325 Mg Tab) 325 mg PO MoWeFr@0900 [facility] Stop: 12/13/24 08:59 Last Admin: 11/13/24 08:19 Dose: 325 mg Fludrocortisone Acetate (Fludrocortisone Acetate 0.1 Mg Tab) 0.1 mg PO DAILY [facility] Stop: 12/13/24 08:59 Last Admin: 11/13/24 08:23 Dose: 0.1 mg Fluticasone Furoate (Fluticasone Furoate 200mcg 14 Puffs/Inhaler) 1 puffs INH DAILY [facility] Stop: 12/13/24 08:59 Last Admin: 11/13/24 08:23 Dose: 1 puffs Hydrocortisone (Hydrocortisone 10 Mg Tab) 10 mg PO DAILY@1500 [facility] Stop: 12/13/24 14:59 Last Admin: 11/13/24 14:38 Dose: 10 mg Hydrocortisone (Hydrocortisone 10 Mg Tab) 20 mg PO QAM [facility] Stop: 12/13/24 08:59 Last Admin: 11/13/24 08:24 Dose: 20 mg Sodium Chloride (Nss) 1,000 mls @ 80 mls/hr IV .[id number] [facility] Stop: 11/13/24 23:35 Last Admin: 11/13/24 12:52 Dose: 80 mls/hr Ceftriaxone Sodium (Rocephin) 2,000 mg in 50 mls @ 100 mls/hr IV Q24H [facility] Stop: 11/20/24 20:59 Heparin Sodium/Dextrose (Heparin 57179 Unit/500 Ml D5w) 25,000 units in 500 mls @ 33 mls/hr IV .[id number] [facility]; Protocol Stop: 12/13/24 03:44 Last Titration: 11/13/24 16:10 Dose: 1,650 units/hr, 33 mls/hr Lidocaine (Lidocaine 5% 1 Patch) 2 patch TD DAILY [facility] Stop: 12/13/24 08:59 Last Admin: 11/13/24 08:24 Dose: 2 patch Magnesium Chloride (Magnesium Chloride W/Calcium 64mg Delayed Rel Tab) 64 mg PO DAILY [facility] Stop: 12/13/24 08:59 Last Admin: 11/13/24 08:22 Dose: 64 mg Memantine (Memantine Hcl 10 Mg Tab) 10 mg PO BID [facility] Stop: 12/13/24 08:59 Last Admin: 11/13/24 08:23 Dose: 10 mg Miscellaneous (Remove Lidoderm Patch) 1 each N/A DAILY@2100 [facility] Stop: 12/13/24 00:29 Last Admin: 11/13/24 01:01 Dose: Not Given Multivitamins/Minerals (Cerovite Adv Formula Tab) 1 tab PO DAILY [facility] Stop: 12/13/24 08:59 Last Admin: 11/13/24 08:22 Dose: 1 tab Nystatin/Triamcinolone Acetonide (Nystatin/Triamcin Oint 15 Gm Tube) 1 appln EXT BID [facility] Stop: 12/12/24 23:35 Last Admin: 11/13/24 08:31 Dose: 1 appln Oxybutynin Chloride (Oxybutynin Chloride Xl 5 Mg Tabcr) 5 mg PO DAILY [facility] Stop: 12/13/24 08:59 Last Admin: 11/13/24 08:22 Dose: 5 mg Pantoprazole Sodium (Pantoprazole 40 Mg Tab) 40 mg PO DAILY [facility] Stop: 12/13/24 08:59 Last Admin: 11/13/24 08:23 Dose: 40 mg Polyethylene Glycol (Polyethylene (Miralax) 17 Gm Pack) 17 gm PO DAILY PRN PRN Reason: Constipation Stop: 12/12/24 23:35 Umeclidinium/Vilanterol (Umeclidinium/Vilanterol 62.5/25mcg 7 Puffs/Inhaler) 1 puffs INH DAILY [facility] Stop: 12/13/24 08:59 Last Admin: 11/13/24 08:23 Dose: 1 puffs Vibegron (Vibegron 75 Mg Tab) 75 mg PO DAILY [facility] Stop: 12/13/24 08:59 Last Admin: 11/13/24 08:22 Dose: 75 mg Vitamin D (Cholecalciferol 125 Mcg (5,000 Units) Tab) 125 mcg PO DAILY [facility] Stop: 12/13/24 08:59 Last Admin: 11/13/24 08:18 Dose: 125 mcg (2) Urinary tract infection associated with indwelling urethral catheter Encounter type: initial encounter Qualified Code(s): T83.511A - Infection and inflammatory reaction due to indwelling urethral catheter, initial encounter; N39.0 - Urinary tract infection, site not specified (4) Dementia Dementia behavioral or psychological symptom: unspecified whether behavioral, psychotic, or mood disturbance or anxiety Dementia severity: unspecified severity Dementia type: unspecified type Qualified Code(s): F03.90 - Unspecified dementia, unspecified severity, without behavioral disturbance, psychotic disturbance, mood disturbance, and anxiety (7) Bladder cancer Bladder location: unspecified site Qualified Code(s): C67.9 - Malignant neoplasm of bladder, unspecified (8) Aortic stenosis Cardiac valve disease etiology: nonrheumatic Qualified Code(s): I35.0 - Nonrheumatic aortic (valve) stenosis
[2024-11-13] MEDS: POTASSIUM CHLORIDE CRTAB 20 MEQ TABCR PO STA (17:39)
[2024-11-13] MEDS: cefTRIAXone SODIUM 2,000 MG/50 ML BAG IV SCH (21:07)
[2024-11-14 07:43] LABS: BUN Creatinine Ratio 11.3 (10-20); Calcium 8.4 mg/dl (8.6-10.3); Creatinine Clr Calc Pharmacy 75.1 ml/min; Potassium 3.7 mmol/L (3.5-5.1)
[2024-11-14 07:54] LABS: ANTI-Xa, UFH(UnfractionatedHep 0.67 IU/ml (0.3-0.7)
--- NOTE | 2024-11-14 11:14 | Urology Consultation ---
Date of Consultation November 14, 2024 Assessment & Plan (1) Chronic indwelling Devlin catheter: 79-year-old male with a history of prostate cancer status post radiation therapy and bladder cancer (s/p surgery, now off Keytruda secondary to myocarditis) admitted for right lower extremity cellulitis. Urology consulted for leakage around the catheter. Catheter is patent so suspect he is having bladder spasms Nursing can exchange catheter if there is suspected catheter malfunction He is already on oxybutynin and Gemtesa for bladder spasms, so other options are limited Can consider increasing dose of Oxybutynin Unfortunately, there are not many options for him at this point given that he requires the catheter and he is already on medications to prevent spasms/leakage Continue local wound care and medical management per hospital medicine service He can follow-up with his primary urologist Case discussed with my attending urologist Urology to sign off, recall as needed History of Present Illness Reason for Consultation: Leaking Devlin with h/o bladder cancer Requesting Physician: Dr. Devlin Attending Physician: Matt Gongora MD History of Present Illness This is a 79-year-old male with history of prostate cancer s/p radiation and bladder cancer (s/p surgery, now off Keytruda secondary to myocarditis, established with urology and oncology at [facility]) and multiple medical comorbidities who was admitted on 11/12/2024 for cellulitis of the right leg. He was recently hospitalized for UTI and VIOLETA and was discharged from the hospital on 11/10/2024 with Augmentin for Klebsiella UTI. Per admitting notes, his brought him back today erythematous rash on the inside of his right thigh extending to his groin back. On arrival to ED he was afebrile, hypertensive. Lab work showed WBC 7.27, hemoglobin 13.2, creatinine 1.25, lactate 2.3. Urinalysis 11/12/24 2+ blood, 3+ LE, >50 WBC, >20 RBC, 1+ bacteria. Patient admitted to the hospital medicine service for cellulitis of the right leg. Patient was also found to have an acute DVT and started on IV heparin. Urine culture 11/12 with Sylvia albicans Blood cultures with no growth x 24 hours Labs today reviewedcreatinine 1.06, WBC 6.95, hemoglobin 12.7 Patient follows with [facility] urology. He has significant incontinence and has been catheter bound. Unfortunately he has had leakage around the catheter for some time. He is on oxybutynin and Gemtesa at present. Patient seen and e xamined at bedside. He is awake and sitting up in bedside chair. Devlin draining clear yellow urine. Denies suprapubic or abdominal discomfort. No fever or chills. Allergies Allergy/AdvReac Type Severity Reaction Status Date / Time Iodinated Contrast Media Allergy Severe LOVERSOL---CARDIAC Verified 11/12/24 20:[address] CONTRAST clindamycin Allergy Intermediate Rash Verified 11/12/24 20:27 cranberry Allergy Unknown Unknown Verified 11/12/24 20:27 caffeine Allergy Verified 11/13/24 15:45 chocolate flavor AdvReac Severe DIARRHEA/ Verified 11/12/24 20:27 Cannot take, interacts w/ medications. pembrolizumab [From [employer]] AdvReac Intermediate myocarditis Verified 11/12/24 20:27 Home Medications Medication Instructions Recorded Confirmed Type acetaminophen 325 mg tablet 650 mg (2 x 325 mg) PO Q4H PRN 06/08/24 11/12/24 Rx fever or pain #30 tabs ascorbic acid (vitamin C) 1,000 mg 1,000 mg PO DAILY #30 tabs 06/08/24 11/12/24 Rx tablet cholecalciferol (vitamin D3) 125 125 mcg PO DAILY #30 tabs 06/08/24 11/12/24 Rx mcg (5,000 unit) tablet (Vitamin D3) cyanocobalamin (vitamin B-12) 1,000 mcg PO DAILY #30 tabs 06/08/24 11/12/24 Rx 1,000 mcg tablet epinephrine 0.3 mg/0.3 mL 0.3 mg (0.3 mL) IM UD PRN 06/08/24 11/12/24 Rx injection, auto-injector Anaphylaxis #3 ea fluticasone fur. 200 mcg-umeclid 1 inh inhalation DAILY #1 ea 06/08/24 11/12/24 Rx 62.5 mcg-vilant 25 mcg inhalat.powder (Trelegy Ellipta) lidocaine 5 % topical patch 2 patch transdermal DAILY #20 ea 06/08/24 11/12/24 Rx memantine 10 mg tablet 10 mg PO BID #60 tabs 06/08/24 11/12/24 Rx multivitamin with minerals-folic 1 tab PO DAILY #30 tabs 06/08/24 11/12/24 Rx acid 200 mcg chewable tablet (Multivitamin Gummies) omeprazole 20 mg capsule,delayed 20 mg PO DAILY #30 caps 06/08/24 11/12/24 Rx release solifenacin 5 mg tablet 5 mg PO DAILY #30 tabs 06/08/24 11/12/24 Rx hydrocortisone 10 mg tablet 20 mg (2 x 10 mg) PO QAM #0 tabs 07/07/24 11/12/24 Rx (Cortef) mirabegron 25 mg tablet,extended 25 mg PO DAILY 07/28/24 11/12/24 History release 24 hr (Myrbetriq) albuterol sulfate 90 mcg/actuation 2 puff inhalation Q6H PRN 08/21/24 11/12/24 History aerosol inhaler Shortness Of Breath Or Wheezing fludrocortisone 0.1 mg tablet 0.1 mg PO DAILY 08/21/24 11/12/24 History ferrous sulfate 325 mg (65 mg 325 mg PO [id number] 11/03/24 11/12/24 History iron) tablet,delayed release hydrocortisone 10 mg tablet 10 mg PO .DAILY @ 1500 11/03/24 11/12/24 History (Cortef) magnesium chloride 64 mg 64 mg PO DAILY 11/03/24 11/12/24 History (magnesium chloride) tablet,delayed release amoxicillin 875 mg-potassium 1 tab PO BID #10 tabs 11/10/24 11/12/24 Rx clavulanate 125 mg tablet Patient History Medical History Weakness Recurrent UTI Anxiety Elevated blood pressure reading Complicated UTI (urinary tract infection) Myocarditis Primary bladder malignant neoplasm Orthostatic hypotension Coagulopathy History of DVT (deep vein thrombosis) hx "many years ago" unknown etiology acute on chronic DVT during 12/2022 [facility] admission- Coumadin d/c'ed due to anemia and hematuria; IVC filter placed 12/28/22 COPD (chronic obstructive pulmonary disease) well controlled. uses Breo daily with exercise Fracture of multiple teeth Sacral pressure sore Ambulatory dysfunction Anemia Urethral stricture Ascending aorta dilation Mild- 4.4cm per 11/2022 ECHO Obesity Venous insufficiency (chronic) (peripheral) Radiation cystitis Kidney stones x1 episode. no surgery needed. Cardiac arrest hx r/t IV Contrast Dye "many years ago" Allergic rhinitis Contrast media allergy Hiatal hernia Surgical History S/P IVC filter S/P cataract extraction History of right cataract extraction History of colonoscopy H/O sinus surgery History of appendectomy S/P TURP (status post transurethral resection of prostate) Status post cystoscopy (11/07/13) Family History Father Prostate cancer Brother Prostate cancer Mother Thyroid cancer Cancer Other No family history of adverse response to anesthesia Social History Smoking Status: Never smoker Tobacco Type: Cigarettes Second Hand Exposure: No; Do You Dip or Chew Tobacco: No; Hx Alcohol Use: Yes Alcohol type: beer Alcohol Intake Frequency: Monthly or Less Hx Substance Use: No Preferred Language: P[place]in[place] Communication Ability: Effective Visual Impairment: Limited Hearing Ability: Normal Computing Consultant Required: No Beliefs That Will Affect Care: None marital status: Current Living Situation: Spouse Current Living Situation Comment: Jen current occupational status: retired How many Children do You have: 0 Feels Safe at Home: Yes Diet: regular during the past year weight has: decreased > 10 lbs Seatbelt Use: always Do you think of yourself as: straight/heterosexual Gender Identity: Male Assistive Devices: Bedside Commode, Hospital Bed and Walker Review of Systems Review of Systems: All systems reviewed & are unremarkable except as noted in HPI & below Physical Exam Constitutional: no acute distress Respiratory: normal respiratory effort; no respiratory distress and no labored breathing Gastrointestinal (Abdomen): Inspection/Auscultation: abdomen normal to inspection Musculoskeletal: Head/Neck/Chest: normocephalic Neurologic: moves all extremities and awake Psychiatric: Orientation: alert and oriented x 3 Genitourinary: Devlin draining clear yellow Results & Data Vital Signs (Past 12 Hours) Vital Signs Temp Pulse Resp BP Pulse Ox O2 Del Method 11/14/24 08:18 36.6 C 65 18 155/86 H 98 Room Air 11/14/24 07:30 36.4 C L 65 16 154/75 H 97 Room Air PG Care Time/CCT Total # of Minutes Spent Total Time Spent with Patient: Total time spent is greater than 50% in coordination of care (as documented) at patient's floor/unit and/or counseling patient: Coding Level of Care Code 67571 INT INP/OBS CARE MIN Diagnoses Chronic indwelling Devlin catheter Z97.8
--- NOTE | 2024-11-14 16:36 | Hospitalist Progress Note ---
Date of Service November 14, 2024 Assessment & Plan (1) Cellulitis of right leg: Plan: 79-year-old male with past medical history significant for adrenal insufficiency on chronic steroids, bronchial asthma/COPD, obstructive sleep apnea, history of DVT/PE s/p IVC filter no longer on anticoagulation due to bleeding issues, bladder cancer s/p surgery off of Keytruda secondary to development of myocarditis, prostate cancer s/p radiation therapy, valvular heart disease ,moderate aortic stenosis, mild aortic regurgitation, hypertension, orthostatic hypotension, chronic anemia, mild cognitive impairment and dementia, ambulatory dysfunction ambulates with a walker, urinary incontinence, currently on chronic Devlin, chronic venous insufficiency, CKD stage III who lives at home with his was brought in because of erythematous rash on the inner side of his right thigh extending to his groin and back. states rash started yesterday but got worse today. Patient denies any fevers or itchiness or pain. thinks he was warm. Patient denies any nausea. Denies any chest pain. Denies shortness of breath. Denies abdominal pain. states ,when he was going home his catheter leaked and there were no depends and he was wet. Currently afebrile. Hemodynamically stable. Denies headache. No runny nose or sore throat. Resting comfortably.Patient was recently in the hospital for confusion thought to be from UTI and also VIOLETA and was discharged on Augmentin on 11/10/2024. Cellulitis of right leg- resolved Possible component of contact dermatitis and Sylvia infection Empirically on Rocephin Received a dose of Diflucan Nystatin/triamcinolone cream Clinically improved Deep vein thrombosis involving the right lower extremity- increased tendency to develop clot due to history of bladder cancer History of DVT and PE Not on anticoag secondary to bleeding historyradiation-induced cystitis Status post IVC filter Continue IV heparin for now Discussed with oncology Dr. Xavi Gramajo on 11/14/2024: Recommends to discharge on low-dose Eliquis 2.5 mg twice a day given high risk for bleeding Monitor for any bleeding issues Chronic Devlin catheter Excoriation of the skin secondary to irritation from catheter leak H/O bladder, prostate cancer Catheter leak likely due to bladder spasms per urology Appreciate urology input Will replace catheter to assess for possible catheter malfunction Already on oxybutynin, Gemtesa for bladder spasms Continue wound care groin/scrotal region Bladder cancer S/P surgery. Keytruda was stopped because of myocarditis on cardiac MRI Prostate cancer s/p radiation treatment and developed radiation-induced cystitis Chronic indwelling Devlin catheter History of frequent UTIs History of dementia Cognitive impairment On memantine Monitor for delirium History of adrenal insufficiency Continue home hydrocortisone on fludrocortisone. Ambulatory dysfunction Ambulates with a walker PT OT when stable Asthma COPD Obstructive sleep apnea Continue home inhalers Monitor oxygen saturations Currently no signs of exacerbation History of orthostatic hypotension Continue home fludrocortisone Immunosuppression due to chronic steroid use GERD Continue PPI DVT px IV heparin CODE STATUS Full code (2) Urinary tract infection associated with indwelling urethral catheter: Plan: Recent Klebsiella pneumoniae UTI with ongoing treatment with IV ceftriaxone followed by Augmentin on discharge Repeat urine culture has been sent Has been on intravenous ceftriaxone as above (3) Confusion: (4) Dementia: (5) Mild cognitive impairment: (6) Adrenal insufficiency: (7) Bladder cancer: (8) Aortic stenosis: (9) History of pulmonary embolism: Admission and Anticipated Discharge Date Admission Date: November 12, 2024 Subjective Patient is seen and examined at bedside Offers no complaints Discussed with patient's over the phone Also discussed with oncology and urology today Patient denies any chest pain, dyspnea, nausea, vomiting, abdominal pain Review of Systems Review of Systems: All systems reviewed & are unremarkable except as noted in Subjective Physical Exam Physical Exam: Physical Exam: Vitals signs as noted above General Appearance:Moderately built and nourished, no apparent distress Head: normocephalic, Atraumatic Eyes: normal inspection, EOMI Neck: supple, Trachea midline Respiratory/Chest: Normal breath sounds, CTA, No accessory muscle use Cardiovascular: S1, S2, + murmur Abdomen/GI:Soft, Non tender, Bowel sounds present Extremities/Musculoskeletal:normal inspection, 1+edema R>L, chronic venous stasis changes Neurologic/Psych:AAOX2, grossly no focal neurological deficits Skin: normal color, warm Results & Data Results & Data Vital Signs (Past 12 Hours) Vital Signs Temp Pulse Resp BP Pulse Ox O2 Del Method 11/14/24 14:01 36.5 C 68 18 122/73 97 Room Air 11/14/24 11:18 108/68 11/14/24 08:18 36.6 C 65 18 155/86 H 98 Room Air 11/14/24 07:30 36.4 C L 65 16 154/75 H 97 Room Air Laboratory Results [facility] 11/14/24 07:01 Sodium 143 Potassium 3.7 Chloride 112 H Carbon Dioxide 27 BUN 12 Creatinine 1.06 Glucose 100 H Calcium 8.4 L (2) Urinary tract infection associated with indwelling urethral catheter Encounter type: initial encounter Qualified Code(s): T83.511A - Infection and inflammatory reaction due to indwelling urethral catheter, initial encounter; N39.0 - Urinary tract infection, site not specified (4) Dementia Dementia type: unspecified type Dementia severity: unspecified severity Dementia behavioral or psychological symptom: unspecified whether behavioral, psychotic, or mood disturbance or anxiety Qualified Code(s): F03.90 - Unspecified dementia, unspecified severity, without behavioral disturbance, psychotic disturbance, mood disturbance, and anxiety (7) Bladder cancer Bladder location: unspecified site Qualified Code(s): C67.9 - Malignant neoplasm of bladder, unspecified (8) Aortic stenosis Cardiac valve disease etiology: nonrheumatic Qualified Code(s): I35.0 - Nonrheumatic aortic (valve) stenosis
[2024-11-15 07:09] LABS: Basophils # (auto) 0.03 K/uL (0.00-0.20); Basophils % (auto) 0.4 %; Eosinophils # (auto) 0.17 K/uL (0.00-0.50); Eosinophils % (auto) 2.5 %; Hematocrit (blood only) 37.6 % (42.0-52.0); Hemoglobin 12.2 g/dl (14.0-18.0); Immature Granulocytes # (auto) 0.03 K/uL (0.01-0.20); Immature Granulocytes % (auto) 0.4 %; Lymphocytes # (auto) 2.02 K/uL (1.20-3.40); Lymphocytes % (auto) 30.1 %; Mean Corpuscular Hemoglobin 28.2 pg (25.0-34.0); Mean Corpuscular Hgb Conc 32.4 g/dL (32.0-36.0); Mean Platelet Volume 9.2 fL (9.4-12.4); Monocytes # (auto) 0.47 K/uL (0.11-0.59); Neutrophils # (auto) 3.98 K/uL (1.40-6.50); Neutrophils % (auto) 59.6 %; Platelet Count 206 K/uL (130-400); RDW Standard Deviation 51.1 fL (36.4-46.3); Red Blood Count 4.32 M/uL (4.70-6.10)
[2024-11-15 07:29] LABS: BUN Creatinine Ratio 11.4 (10-20); Calcium 8.5 mg/dl (8.6-10.3); Creatinine Clr Calc Pharmacy 69.8 ml/min; Potassium 3.5 mmol/L (3.5-5.1)
[2024-11-15 07:38] LABS: ANTI-Xa, UFH(UnfractionatedHep 0.55 IU/ml (0.3-0.7)
--- NOTE | 2024-11-15 16:48 | Hospitalist Progress Note ---
Date of Service November 15, 2024 Assessment & Plan (1) Cellulitis of right leg: Plan: 79-year-old male with past medical history significant for adrenal insufficiency on chronic steroids, bronchial asthma/COPD, obstructive sleep apnea, history of DVT/PE s/p IVC filter no longer on anticoagulation due to bleeding issues, bladder cancer s/p surgery off of Keytruda secondary to development of myocarditis, prostate cancer s/p radiation therapy, valvular heart disease ,moderate aortic stenosis, mild aortic regurgitation, hypertension, orthostatic hypotension, chronic anemia, mild cognitive impairment and dementia, ambulatory dysfunction ambulates with a walker, urinary incontinence, currently on chronic Devlin, chronic venous insufficiency, CKD stage III who lives at home with his was brought in because of erythematous rash on the inner side of his right thigh extending to his groin and back. states rash started yesterday but got worse today. Patient denies any fevers or itchiness or pain. thinks he was warm. Patient denies any nausea. Denies any chest pain. Denies shortness of breath. Denies abdominal pain. states ,when he was going home his catheter leaked and there were no depends and he was wet. Currently afebrile. Hemodynamically stable. Denies headache. No runny nose or sore throat. Resting comfortably.Patient was recently in the hospital for confusion thought to be from UTI and also VIOLETA and was discharged on Augmentin on 11/10/2024. Cellulitis of right leg- resolved Possible component of contact dermatitis and Sylvia infection Empirically on Rocephin Received a dose of Diflucan Nystatin/triamcinolone cream Clinically improved Consider to transition to oral antibiotics as able Deep vein thrombosis involving the right lower extremity- increased tendency to develop clot due to history of bladder cancer History of DVT and PE Not on anticoag secondary to bleeding historyradiation-induced cystitis Status post IVC filter Currently on IV heparin Discussed with oncology Dr. Xavi Gramajo on 11/14/2024: Recommends to discharge on low-dose Eliquis 2.5 mg twice a day given high risk for bleeding Monitor for any bleeding issues Discussed with patient's over the phone--agrees to transition to Eliquis Will transition IV heparin to Eliquis today Chronic Devlin catheter Excoriation of the skin secondary to irritation from catheter leak H/O bladder, prostate cancer Catheter leak likely due to bladder spasms per urology Appreciate urology input replaced catheter Already on oxybutynin, Gemtesa for bladder spasms Continue wound care groin/scrotal region Bladder cancer S/P surgery. Keytruda was stopped because of myocarditis on cardiac MRI Prostate cancer s/p radiation treatment and developed radiation-induced cystitis Chronic indwelling Devlin catheter History of frequent UTIs History of dementia Cognitive impairment On memantine Monitor for delirium History of adrenal insufficiency Continue home hydrocortisone on fludrocortisone. Ambulatory dysfunction Ambulates with a walker PT OT when stable Asthma COPD Obstructive sleep apnea Continue home inhalers Monitor oxygen saturations Currently no signs of exacerbation History of orthostatic hypotension Continue home fludrocortisone Immunosuppression due to chronic steroid use GERD Continue PPI DVT px IV heparin/Eliquis CODE STATUS Full code Disposition PT OT prior to discharge (2) Urinary tract infection associated with indwelling urethral catheter: Plan: Recent Klebsiella pneumoniae UTI with ongoing treatment with IV ceftriaxone followed by Augmentin on discharge Repeat urine culture has been sent Has been on intravenous ceftriaxone as above (3) Confusion: (4) Dementia: (5) Mild cognitive impairment: (6) Adrenal insufficiency: (7) Bladder cancer: (8) Aortic stenosis: (9) History of pulmonary embolism: Admission and Anticipated Discharge Date Admission Date: November 12, 2024 Subjective Patient is seen and examined at bedside Pleasantly confused Updated patient's over the phone Leg edema improving No new complaints today No bleeding issues while on IV heparin Denies any chest pain, dyspnea, nausea, vomiting, abdominal pain Review of Systems Review of Systems: All systems reviewed & are unremarkable except as noted in Subjective Physical Exam Physical Exam: Physical Exam: Vitals signs as noted above General Appearance:Moderately built and nourished, no apparent distress Head: normocephalic, Atraumatic Eyes: normal inspection, EOMI Neck: supple, Trachea midline Respiratory/Chest: Normal breath sounds, CTA, No accessory muscle use Cardiovascular: S1, S2, + murmur Abdomen/GI:Soft, Non tender, Bowel sounds present Extremities/Musculoskeletal:normal inspection, 1+edema R>L, chronic venous stasis changes Neurologic/Psych:AAOX2, grossly no focal neurological deficits Skin: normal color, warm Results & Data Results & Data Vital Signs (Past 12 Hours) Vital Signs Temp Pulse Resp BP Pulse Ox O2 Del Method 11/15/24 14:04 36.4 C L 73 18 112/63 100 Room Air 11/15/24 08:04 36.6 C 61 18 155/67 H 98 Room Air Laboratory Results Short CBC 11/15/24 Range/Units 06:21 WBC 6.70 (4.8-10.8) K/ul Hgb 12.2 L (14.0-18.0) g/dl Hct 37.6 L (42.0-52.0) % Plt Count 206 (130-400) K/uL BMP 11/15/24 06:21 Sodium 142 Potassium 3.5 Chloride 109 H Carbon Dioxide 28 BUN 13 Creatinine 1.14 Glucose 94 Calcium 8.5 L (2) Urinary tract infection associated with indwelling urethral catheter Encounter type: initial encounter Qualified Code(s): T83.511A - Infection and inflammatory reaction due to indwelling urethral catheter, initial encounter; N39.0 - Urinary tract infection, site not specified (4) Dementia Dementia type: unspecified type Dementia severity: unspecified severity Dementia behavioral or psychological symptom: unspecified whether behavioral, psychotic, or mood disturbance or anxiety Qualified Code(s): F03.90 - Unspecified dementia, unspecified severity, without behavioral disturbance, psychotic disturbance, mood disturbance, and anxiety (7) Bladder cancer Bladder location: unspecified site Qualified Code(s): C67.9 - Malignant neoplasm of bladder, unspecified (8) Aortic stenosis Cardiac valve disease etiology: nonrheumatic Qualified Code(s): I35.0 - Nonrheumatic aortic (valve) stenosis
[2024-11-15] MEDS: APIXABAN 2.5 MG TAB PO SCH (21:13)
[2024-11-15 21:56] LABS: Basophils # (auto) 0.02 K/uL (0.00-0.20); Basophils % (auto) 0.3 %; Eosinophils # (auto) 0.12 K/uL (0.00-0.50); Hematocrit (blood only) 37.7 % (42.0-52.0); Hemoglobin 12.3 g/dl (14.0-18.0); Immature Granulocytes # (auto) 0.01 K/uL (0.01-0.20); Immature Granulocytes % (auto) 0.2 %; Lymphocytes # (auto) 1.76 K/uL (1.20-3.40); Lymphocytes % (auto) 29.2 %; Mean Corpuscular Hemoglobin 28.3 pg (25.0-34.0); Mean Corpuscular Hgb Conc 32.6 g/dL (32.0-36.0); Mean Corpuscular Volume 86.7 fL (80.0-100.0); Mean Platelet Volume 8.9 fL (9.4-12.4); Monocytes # (auto) 0.38 K/uL (0.11-0.59); Monocytes % (auto) 6.3 %; Neutrophils # (auto) 3.74 K/uL (1.40-6.50); Platelet Count 206 K/uL (130-400); RDW Standard Deviation 50.7 fL (36.4-46.3); Red Blood Count 4.35 M/uL (4.70-6.10); White Blood Count 6.03 K/ul (4.8-10.8)
--- NOTE | 2024-11-15 23:35 | Communication Note ---
Date of Service: November 15, 2024 Patient with progressive bloodshot left eye as per RN. No pain or visual complaints as per RN AP Subconjunctival hemorrhage left History DVT on Eliquis CBC now Hold Eliquis for now
[2024-11-16 08:30] LABS: ANTI-Xa, UFH(UnfractionatedHep 0.23 IU/ml (0.3-0.7)
--- NOTE | 2024-11-16 16:16 | Hospitalist Progress Note ---
Date of Service November 16, 2024 Assessment & Plan (1) Cellulitis of right leg: Plan: 79-year-old male with past medical history significant for adrenal insufficiency on chronic steroids, bronchial asthma/COPD, obstructive sleep apnea, history of DVT/PE s/p IVC filter no longer on anticoagulation due to bleeding issues, bladder cancer s/p surgery off of Keytruda secondary to development of myocarditis, prostate cancer s/p radiation therapy, valvular heart disease ,moderate aortic stenosis, mild aortic regurgitation, hypertension, orthostatic hypotension, chronic anemia, mild cognitive impairment and dementia, ambulatory dysfunction ambulates with a walker, urinary incontinence, currently on chronic Devlin, chronic venous insufficiency, CKD stage III who lives at home with his was brought in because of erythematous rash on the inner side of his right thigh extending to his groin and back. states rash started yesterday but got worse today. Patient denies any fevers or itchiness or pain. thinks he was warm. Patient denies any nausea. Denies any chest pain. Denies shortness of breath. Denies abdominal pain. states ,when he was going home his catheter leaked and there were no depends and he was wet. Currently afebrile. Hemodynamically stable. Denies headache. No runny nose or sore throat. Resting comfortably.Patient was recently in the hospital for confusion thought to be from UTI and also VIOLETA and was discharged on Augmentin on 11/10/2024. Cellulitis of right leg- resolved Possible component of contact dermatitis and Sylvia infection Empirically on Rocephin Received a dose of Diflucan Nystatin/triamcinolone cream Clinically improved Consider to transition to oral antibiotics likely tomorrow Deep vein thrombosis involving the right lower extremity- increased tendency to develop clot due to history of bladder cancer History of DVT and PE Not on anticoag secondary to bleeding historyradiation-induced cystitis Status post IVC filter Currently on IV heparin Discussed with oncology Dr. Xavi Gramajo on 11/14/2024: Recommends to discharge on low-dose Eliquis 2.5 mg twice a day given high risk for bleeding Monitor for any bleeding issues Discussed with patient's over the phone--agrees to transition to Eliquis IV heparin transition to Eliquis Eliquis currently on hold due to subconjunctival hemorrhage Likely plan to resume Eliquis tomorrow Subconjunctival hemorrhage In setting of anticoagulation use Denies any blurry, double vision Advised to avoid trauma Monitor for now Chronic Devlin catheter Excoriation of the skin secondary to irritation from catheter leak H/O bladder, prostate cancer Catheter leak likely due to bladder spasms per urology Appreciate urology input replaced catheter Already on oxybutynin, Gemtesa for bladder spasms Continue wound care groin/scrotal region Bladder cancer S/P surgery. Keytruda was stopped because of myocarditis on cardiac MRI Prostate cancer s/p radiation treatment and developed radiation-induced cystitis Chronic indwelling Devlin catheter History of frequent UTIs History of dementia Cognitive impairment On memantine Monitor for delirium History of adrenal insufficiency Continue home hydrocortisone on fludrocortisone. Ambulatory dysfunction Ambulates with a walker PT OT when stable Asthma COPD Obstructive sleep apnea Continue home inhalers Monitor oxygen saturations Currently no signs of exacerbation History of orthostatic hypotension Continue home fludrocortisone Immunosuppression due to chronic steroid use GERD Continue PPI DVT px IV heparin/Eliquis CODE STATUS Full code Disposition Patient not interested in rehab placement Likely plan to be discharged home with home health (2) Urinary tract infection associated with indwelling urethral catheter: Plan: Recent Klebsiella pneumoniae UTI with ongoing treatment with IV ceftriaxone followed by Augmentin on discharge Repeat urine culture has been sent Has been on intravenous ceftriaxone as above (3) Confusion: (4) Dementia: (5) Mild cognitive impairment: (6) Adrenal insufficiency: (7) Bladder cancer: (8) Aortic stenosis: (9) History of pulmonary embolism: Admission and Anticipated Discharge Date Admission Date: November 12, 2024 Subjective Patient is seen and examined at bedside States feeling well today Eager to get discharged Updated patient's over the phone Had minimal subconjunctival hemorrhage overnight Denies any chest pain, dyspnea, nausea, vomiting, abdominal pain Review of Systems Review of Systems: All systems reviewed & are unremarkable except as noted in Subjective Physical Exam Physical Exam: Physical Exam: Vitals signs as noted above General Appearance:Moderately built and nourished, no apparent distress Head: normocephalic, Atraumatic Eyes: normal inspection, EOMI Neck: supple, Trachea midline Respiratory/Chest: Normal breath sounds, CTA, No accessory muscle use Cardiovascular: S1, S2, + murmur Abdomen/GI:Soft, Non tender, Bowel sounds present Extremities/Musculoskeletal:normal inspection, 1+edema R>L, chronic venous stasis changes Neurologic/Psych:AAOX2, grossly no focal neurological deficits Skin: normal color, warm Results & Data Results & Data Vital Signs (Past 12 Hours) Vital Signs Temp Pulse Resp BP BP Pulse Ox O2 Del Method 11/16/24 14:32 36.6 C 80 18 125/69 95 Room Air 11/16/24 07:39 36.5 C 67 16 138/81 97 Room Air Laboratory Results Short CBC 11/15/24 Range/Units 21:39 WBC 6.03 (4.8-10.8) K/ul Hgb 12.3 L (14.0-18.0) g/dl Hct 37.7 L (42.0-52.0) % Plt Count 206 (130-400) K/uL (2) Urinary tract infection associated with indwelling urethral catheter Encounter type: initial encounter Qualified Code(s): T83.511A - Infection and inflammatory reaction due to indwelling urethral catheter, initial encounter; N39.0 - Urinary tract infection, site not specified (4) Dementia Dementia type: unspecified type Dementia severity: unspecified severity Dementia behavioral or psychological symptom: unspecified whether behavioral, psychotic, or mood disturbance or anxiety Qualified Code(s): F03.90 - Unspecified dementia, unspecified severity, without behavioral disturbance, psychotic disturbance, mood disturbance, and anxiety (7) Bladder cancer Bladder location: unspecified site Qualified Code(s): C67.9 - Malignant neoplasm of bladder, unspecified (8) Aortic stenosis Cardiac valve disease etiology: nonrheumatic Qualified Code(s): I35.0 - Nonrheumatic aortic (valve) stenosis
[2024-11-16 19:42] VITALS: TEMP 97.7; O2SAT 100
[2024-11-17 07:23] VITALS: RESP 18
[2024-11-17 08:15] LABS: Basophils # (auto) 0.03 K/uL (0.00-0.20); Basophils % (auto) 0.5 %; Eosinophils # (auto) 0.19 K/uL (0.00-0.50); Hematocrit (blood only) 37.9 % (42.0-52.0); Hemoglobin 12.6 g/dl (14.0-18.0); Immature Granulocytes # (auto) 0.01 K/uL (0.01-0.20); Immature Granulocytes % (auto) 0.2 %; Lymphocytes # (auto) 2.55 K/uL (1.20-3.40); Mean Corpuscular Hemoglobin 28.8 pg (25.0-34.0); Mean Corpuscular Hgb Conc 33.2 g/dL (32.0-36.0); Mean Corpuscular Volume 86.5 fL (80.0-100.0); Mean Platelet Volume 9.2 fL (9.4-12.4); Monocytes # (auto) 0.48 K/uL (0.11-0.59); Monocytes % (auto) 7.5 %; Neutrophils # (auto) 3.11 K/uL (1.40-6.50); Neutrophils % (auto) 48.8 %; Platelet Count 217 K/uL (130-400); RDW Coefficient of Variation 15.9 % (11.5-14.5); RDW Standard Deviation 50.4 fL (36.4-46.3); Red Blood Count 4.38 M/uL (4.70-6.10); White Blood Count 6.37 K/ul (4.8-10.8)
[2024-11-17 08:28] LABS: BUN Creatinine Ratio 12.7 (10-20); Calcium 9.1 mg/dl (8.6-10.3); Creatinine Clr Calc Pharmacy 67.4 ml/min; Potassium 3.4 mmol/L (3.5-5.1)
[2024-11-17 08:33] LABS: ANTI-Xa, UFH(UnfractionatedHep < 0.10 IU/ml (0.3-0.7)
[2024-11-17] MEDS: POTASSIUM CHLORIDE CRTAB 20 MEQ TABCR PO ONE (10:47)
--- NOTE | 2024-11-17 13:25 | Hospitalist Progress Note ---
Date of Service November 17, 2024 Assessment & Plan (1) Cellulitis of right leg: Plan: 79-year-old male with past medical history significant for adrenal insufficiency on chronic steroids, bronchial asthma/COPD, obstructive sleep apnea, history of DVT/PE s/p IVC filter no longer on anticoagulation due to bleeding issues, bladder cancer s/p surgery off of Keytruda secondary to development of myocarditis, prostate cancer s/p radiation therapy, valvular heart disease ,moderate aortic stenosis, mild aortic regurgitation, hypertension, orthostatic hypotension, chronic anemia, mild cognitive impairment and dementia, ambulatory dysfunction ambulates with a walker, urinary incontinence, currently on chronic Devlin, chronic venous insufficiency, CKD stage III who lives at home with his was brought in because of erythematous rash on the inner side of his right thigh extending to his groin and back. states rash started yesterday but got worse today. Patient denies any fevers or itchiness or pain. thinks he was warm. Patient denies any nausea. Denies any chest pain. Denies shortness of breath. Denies abdominal pain. states ,when he was going home his catheter leaked and there were no depends and he was wet. Currently afebrile. Hemodynamically stable. Denies headache. No runny nose or sore throat. Resting comfortably.Patient was recently in the hospital for confusion thought to be from UTI and also VIOLETA and was discharged on Augmentin on 11/10/2024. Cellulitis of right leg- resolved Possible component of contact dermatitis and Sylvia infection Empirically on Rocephin Received a dose of Diflucan Nystatin/triamcinolone cream Clinically improved PT recommends to return home Plan to discharge home today Deep vein thrombosis involving the right lower extremity- increased tendency to develop clot due to history of bladder cancer History of DVT and PE Not on anticoag secondary to bleeding historyradiation-induced cystitis Status post IVC filter Currently on IV heparin Discussed with oncology Dr. Xavi Gramajo on 11/14/2024: Recommends to discharge on low-dose Eliquis 2.5 mg twice a day given high risk for bleeding Monitor for any bleeding issues Discussed with patient's over the phone--agrees to transition to Eliquis IV heparin transition to Eliquis Continue Eliquis on discharge Subconjunctival hemorrhage In setting of anticoagulation use Denies any blurry, double vision Advised to avoid trauma Monitor Chronic Devlin catheter Excoriation of the skin secondary to irritation from catheter leak H/O bladder, prostate cancer Catheter leak likely due to bladder spasms per urology Appreciate urology input replaced catheter Already on oxybutynin, Gemtesa for bladder spasms Continue wound care groin/scrotal region Advised to follow-up with primary urologist Dr. Prado upon discharge Bladder cancer S/P surgery. Keytruda was stopped because of myocarditis on cardiac MRI Prostate cancer s/p radiation treatment and developed radiation-induced cystitis Chronic indwelling Devlin catheter History of frequent UTIs History of dementia Cognitive impairment On memantine Monitor for delirium History of adrenal insufficiency Continue home hydrocortisone on fludrocortisone. Ambulatory dysfunction Ambulates with a walker PT OT when stable Asthma COPD Obstructive sleep apnea Continue home inhalers Monitor oxygen saturations Currently no signs of exacerbation History of orthostatic hypotension Continue home fludrocortisone Immunosuppression due to chronic steroid use GERD Continue PPI DVT px Eliquis CODE STATUS Full code Disposition Patient not interested in rehab placement home with home health (2) Urinary tract infection associated with indwelling urethral catheter: Plan: Recent Klebsiella pneumoniae UTI with ongoing treatment with IV ceftriaxone followed by Augmentin on discharge Repeat urine culture has been sent Has been on intravenous ceftriaxone as above (3) Confusion: (4) Dementia: (5) Mild cognitive impairment: (6) Adrenal insufficiency: (7) Bladder cancer: (8) Aortic stenosis: (9) History of pulmonary embolism: Admission and Anticipated Discharge Date Admission Date: November 12, 2024 Subjective Patient is seen and examined at bedside No new complaints Having PT evaluation earlier today during my encounter No bleeding issues overnight Denies any chest pain, dyspnea, nausea, vomiting, abdominal pain Plan to be discharged home today Review of Systems Review of Systems: All systems reviewed & are unremarkable except as noted in Subjective Physical Exam Physical Exam: Physical Exam: Vitals signs as noted above General Appearance:Moderately built and nourished, no apparent distress Head: normocephalic, Atraumatic Eyes: normal inspection, EOMI Neck: supple, Trachea midline Respiratory/Chest: Normal breath sounds, CTA, No accessory muscle use Cardiovascular: S1, S2, + murmur Abdomen/GI:Soft, Non tender, Bowel sounds present Extremities/Musculoskeletal:normal inspection, 1+edema R>L, chronic venous stasis changes Neurologic/Psych:AAOX2, grossly no focal neurological deficits Skin: normal color, warm Results & Data Results & Data Vital Signs (Past 12 Hours) Vital Signs Temp Pulse Resp BP Pulse Ox O2 Del Method 11/17/24 07:21 36.5 C 68 18 164/90 H 100 Room Air Laboratory Results Short CBC 11/17/24 Range/Units 07:52 WBC 6.37 (4.8-10.8) K/ul Hgb 12.6 L (14.0-18.0) g/dl Hct 37.9 L (42.0-52.0) % Plt Count 217 (130-400) K/uL BMP 11/17/24 07:52 Sodium 142 Potassium 3.4 L Chloride 108 H Carbon Dioxide 27 BUN 15 Creatinine 1.18 Glucose 90 Calcium 9.1 (2) Urinary tract infection associated with indwelling urethral catheter Encounter type: initial encounter Qualified Code(s): T83.511A - Infection and inflammatory reaction due to indwelling urethral catheter, initial encounter; N39.0 - Urinary tract infection, site not specified (4) Dementia Dementia type: unspecified type Dementia severity: unspecified severity Dementia behavioral or psychological symptom: unspecified whether behavioral, psychotic, or mood disturbance or anxiety Qualified Code(s): F03.90 - Unspecified dementia, unspecified severity, without behavioral disturbance, psychotic disturbance, mood disturbance, and anxiety (7) Bladder cancer Bladder location: unspecified site Qualified Code(s): C67.9 - Malignant neoplasm of bladder, unspecified (8) Aortic stenosis Cardiac valve disease etiology: nonrheumatic Qualified Code(s): I35.0 - Nonrheumatic aortic (valve) stenosis
--- NOTE | 2024-11-17 13:32 | Discharge Summary ---
Date of Service November 17, 2024 Admission HPI Per Admitting Provider 79-year-old male with past medical history significant for adrenal insufficiency on chronic steroids, bronchial asthma/COPD, obstructive sleep apnea, history of DVT/PE s/p IVC filter no longer on anticoagulation due to bleeding issues, bladder cancer s/p surgery off of Keytruda secondary to development of myocarditis, prostate cancer s/p radiation therapy, valvular heart disease ,moderate aortic stenosis, mild aortic regurgitation, hypertension, orthostatic hypotension, chronic anemia, mild cognitive impairment and dementia, ambulatory dysfunction ambulates with a walker, urinary incontinence, currently on chronic Devlin, chronic venous insufficiency, CKD stage III who lives at home with his was brought in because of erythematous rash on the inner side of his right thigh extending to his groin and back. states rash started yesterday but got worse today. Patient denies any fevers or itchiness or pain. thinks he was warm. Patient denies any nausea. Denies any chest pain. Denies shortness of breath. Denies abdominal pain. states ,when he was going home his catheter leaked and there were no depends and he was wet. Currently afebrile. Hemodynamically stable. Denies headache. No runny nose or sore throat. Resting comfortably.Patient was recently in the hospital for confusion thought to be from UTI and also VIOLETA and was discharged on Augmentin on 11/10/2024. Past medical history. As mentioned above Past surgical history. Cataract surgery. Removal of appendix. Social history. . No smoking. No alcohol use. No drug use. Family history. Brother had prostate cancer. Father had prostate cancer. Mother had cancer. Admission Exam Per Admitting Provider General- Not in distress Head- atraumatic Eyes- PERRL. ENT- oropharynx clear Neck- supple, no JVD. Lungs- clear to auscultation no wheezing or crackles Heart- regular rate and rhythm; no murmur, no gallop. Abdomen- normal bowel sounds, soft, nontender, no distension Extremities- right medial aspect of thigh erythematous extending to groin Neuro- alert, oriented PERRL, no facial palsy; no dysarthria; moves extremities Principal Diagnosis Cellulitis of right leg Acute right lower extremity deep vein thrombosis Subconjunctival hemorrhage Devlin catheter leak Discharge Data Allergies Allergy/AdvReac Type Severity Reaction Status Date / Time Iodinated Contrast Media Allergy Severe LOVERSOL---CARDIAC Verified 11/12/24 20:[address] CONTRAST clindamycin Allergy Intermediate Rash Verified 11/12/24 20:27 cranberry Allergy Unknown Unknown Verified 11/12/24 20:27 caffeine Allergy Verified 11/13/24 15:45 chocolate flavor AdvReac Severe DIARRHEA/ Verified 11/12/24 20:27 Cannot take, interacts w/ medications. pembrolizumab [From [email or web address]] AdvReac Intermediate myocarditis Verified 11/12/24 20:27 Consultations 11/12/24 22:16 ED Decision to Admit Stat 11/13/24 18:24 Consult Urology Routine Procedures Performed Laboratory Results WBC 6.37 K/ul (4.8-10.8) 11/17/24 07:52 RBC 4.38 M/uL (4.70-6.10) L 11/17/24 07:52 Hgb 12.6 g/dl (14.0-18.0) L 11/17/24 07:52 Hct 37.9 % (42.0-52.0) L 11/17/24 07:52 MCV 86.5 fL (80.0-100.0) 11/17/24 07:52 MCH 28.8 pg (25.0-34.0) 11/17/24 07:52 MCHC 33.2 g/dL (32.0-36.0) 11/17/24 07:52 RDW Std Deviation 50.4 fL (36.4-46.3) H 11/17/24 07:52 RDW Coeff of Robert 15.9 % (11.5-14.5) H 11/17/24 07:52 Plt Count 217 K/uL (130-400) 11/17/24 07:52 MPV 9.2 fL (9.4-12.4) L 11/17/24 07:52 Immature Gran % (Auto) 0.2 % 11/17/24 07:52 Neut % (Auto) 48.8 % 11/17/24 07:52 Lymph % (Auto) 40.0 % 11/17/24 07:52 Riley % (Auto) 7.5 % 11/17/24 07:52 Eos % (Auto) 3.0 % 11/17/24 07:52 Baso % (Auto) 0.5 % 11/17/24 07:52 Neut # (Auto) 3.11 K/uL (1.40-6.50) 11/17/24 07:52 Lymph # (Auto) 2.55 K/uL (1.20-3.40) 11/17/24 07:52 Riley # (Auto) 0.48 K/uL (0.11-0.59) 11/17/24 07:52 Eos # (Auto) 0.19 K/uL (0.00-0.50) 11/17/24 07:52 Baso # (Auto) 0.03 K/uL (0.00-0.20) 11/17/24 07:52 Immature Gran # (Auto) 0.01 K/uL (0.01-0.20) 11/17/24 07:52 Absolute Nucleated RBC Cancelled 11/13/24 03:45 Nucleated RBC % (auto) Cancelled 11/13/24 03:45 Neutrophils % (Manual) Cancelled 11/13/24 03:45 Band Neutrophils % Cancelled 11/13/24 03:45 Lymphocytes % (Manual) Cancelled 11/13/24 03:45 Prolymphocyte % Cancelled 11/13/24 03:45 Reactive Lymphs % (Man) Cancelled 11/13/24 03:45 Monocytes % (Manual) Cancelled 11/13/24 03:45 Eosinophils % (Manual) Cancelled 11/13/24 03:45 Basophils % (Manual) Cancelled 11/13/24 03:45 Metamyelocytes % (Man) Cancelled 11/13/24 03:45 Myelocytes % (Man) Cancelled 11/13/24 03:45 Promyelocytes % (Man) Cancelled 11/13/24 03:45 Blast Cells % (Manual) Cancelled 11/13/24 03:45 Plasma Cell % (Manual) Cancelled 11/13/24 03:45 Other Cells % Cancelled 11/13/24 03:45 Nucleated RBC % Cancelled 11/13/24 03:45 Neutrophils # (Manual) Cancelled 11/13/24 03:45 Band Neutrophils # Cancelled 11/13/24 03:45 Total Absolute Neuts Cancelled 11/13/24 03:45 Lymphocytes # (Manual) Cancelled 11/13/24 03:45 Prolymphocyte # Cancelled 11/13/24 03:45 Reactive Lymphs # Cancelled 11/13/24 03:45 Total Abs Lymphocytes Cancelled 11/13/24 03:45 Monocytes # (Manual) Cancelled 11/13/24 03:45 Eosinophils # (Manual) Cancelled 11/13/24 03:45 Basophils # (Manual) Cancelled 11/13/24 03:45 Metamyelocytes # (Man) Cancelled 11/13/24 03:45 Myelocytes # (Manual) Cancelled 11/13/24 03:45 Promyelocytes # (Man) Cancelled 11/13/24 03:45 Blast Cells # (Man) Cancelled 11/13/24 03:45 Plasma Cell # (Manual) Cancelled 11/13/24 03:45 Other Cells # Cancelled 11/13/24 03:45 Nucleated RBCs # (Man) Cancelled 11/13/24 03:45 Hypersegmented Neuts Cancelled 11/13/24 03:45 Hyposegmented Neuts Cancelled 11/13/24 03:45 Hypogranular Neuts Cancelled 11/13/24 03:45 Large Granular Lymphs Cancelled 11/13/24 03:45 # Lrg Granular Lymphs Cancelled 11/13/24 03:45 Hairy Cells Cancelled 11/13/24 03:45 Smudge Cells Cancelled 11/13/24 03:45 Toxic Granulation Cancelled 11/13/24 03:45 Toxic Vacuolation Cancelled 11/13/24 03:45 Dohle Bodies Cancelled 11/13/24 03:45 Darrius Rods Cancelled 11/13/24 03:45 Platelet Estimate Cancelled 11/13/24 03:45 Hypogranular Platelets Cancelled 11/13/24 03:45 Giant Platelets Cancelled 11/13/24 03:45 Platelet Satelliting Cancelled 11/13/24 03:45 RBC Morphology Cancelled 11/13/24 03:45 Polychromasia Cancelled 11/13/24 03:45 Hypochromasia Cancelled 11/13/24 03:45 Poikilocytosis Cancelled 11/13/24 03:45 Basophilic Stippling Cancelled 11/13/24 03:45 Anisocytosis Cancelled 11/13/24 03:45 Microcytosis Cancelled 11/13/24 03:45 Macrocytosis Cancelled 11/13/24 03:45 Spherocytes Cancelled 11/13/24 03:45 Pappenheimer Bodies Cancelled 11/13/24 03:45 Sickle Cells Cancelled 11/13/24 03:45 Target Cells Cancelled 11/13/24 03:45 Tear Drop Cells Cancelled 11/13/24 03:45 Ovalocytes Cancelled 11/13/24 03:45 Stomatocytes Cancelled 11/13/24 03:45 [place] Bodies Cancelled 11/13/24 03:45 Echinocytes Cancelled 11/13/24 03:45 Acanthocytes (Spur) Cancelled 11/13/24 03:45 Rouleaux Cancelled 11/13/24 03:45 RBC Agglutinates Cancelled 11/13/24 03:45 Schistocytes Cancelled 11/13/24 03:45 Sezary Cell Cancelled 11/13/24 03:45 Heparin Anti-Xa, Unfract < 0.10 IU/ml (0.3-0.7) L 11/17/24 07:52 Sodium 142 mmol/L (136-145) 11/17/24 07:52 Potassium 3.4 mmol/L (3.5-5.1) L 11/17/24 07:52 Chloride 108 mmol/L (98-107) H 11/17/24 07:52 Carbon Dioxide 27 mmol/L (21-32) 11/17/24 07:52 Anion Gap 7 (3-11) 11/17/24 07:52 BUN 15 mg/dl (6-23) 11/17/24 07:52 Creatinine 1.18 mg/dl (0.6-1.4) 11/17/24 07:52 Est Cr Clr Drug Dosing 67.4 ml/min 11/17/24 07:52 eGFR 63.16 11/17/24 07:52 BUN/Creatinine Ratio 12.7 (10-20) 11/17/24 07:52 Glucose 90 mg/dl (70-99(Fasting)) 11/17/24 07:52 Lactate 1.7 mmol/L (0.4-2.0) 11/12/24 Unknown Calcium 9.1 mg/dl (8.6-10.3) 11/17/24 07:52 Magnesium 1.9 mg/dl (1.7-2.4) 11/13/24 03:45 Total Bilirubin 0.6 mg/dl (0.2-1.0) 11/12/24 19:49 Direct Bilirubin 0.1 mg/dl (0-0.2) 11/12/24 19:49 AST 13 U/L (13-39) 11/12/24 19:49 ALT 13 U/L (7-52) 11/12/24 19:49 Alkaline Phosphatase 93 U/L (34-104) 11/12/24 19:49 Troponin I High Sens 5.0 pg/ml (0-20) 11/12/24 19:49 Total Protein 7.0 gm/dl (6.0-8.3) 11/12/24 19:49 Albumin 3.9 gm/dl (3.4-5.0) 11/12/24 19:49 Procalcitonin 0.07 ng/ml (0-0.5) 11/12/24 19:49 Urine Color Yellow 11/12/24 Unknown Urine Appearance Clear (Clear) 11/12/24 Unknown Urine pH 7.5 (4.5-7.5) 11/12/24 Unknown Ur Specific [place] 1.006 (1.000-1.030) 11/12/24 Unknown Urine Protein Negative (Negative) 11/12/24 Unknown Urine Glucose (UA) Negative (Negative) 11/12/24 Unknown Urine Ketones Negative (Negative) 11/12/24 Unknown Urine Blood 2+ (Negative) H 11/12/24 Unknown Urine Nitrite Negative (Negative) 11/12/24 Unknown Urine Bilirubin Negative (Negative) 11/12/24 Unknown Urine Urobilinogen Negative (Negative) 11/12/24 Unknown Ur Leukocyte Esterase 3+ (Negative) H 11/12/24 Unknown Urine WBC (Auto) >50 /hpf (0-5) H 11/12/24 Unknown Urine RBC (Auto) >20 /hpf (0-2) H 11/12/24 Unknown U Hyaline Cast (Auto) 11-20 /lpf (0-2) H 11/12/24 Unknown U Epithel Cells (Auto) 0-2 /hpf (0-2) 11/12/24 Unknown Urine Bacteria (Auto) 1+ (None Seen) H 11/12/24 Unknown Urine Yeast Present (None Prsent) A 11/12/24 Unknown Blood Parasites ID Cancelled 11/13/24 03:45 Impressions Chest X-Ray 11/12/24 19:38 Exam(s): XR CXR 1 VIEW EXAM: XR Chest, 1 View CLINICAL HISTORY: Reason for exam: Sepsis. TECHNIQUE: Frontal view of the chest. COMPARISON: September 23, 2024 FINDINGS: Lungs: No consolidation. No overt edema. Unchanged scarring versus atelectasis at the left base. Pleural space: No pleural effusion. No pneumothorax. Heart: Unremarkable. No cardiomegaly. IMPRESSION: No acute cardiopulmonary abnormality. Electronically signed by: Orlando Lassiter MD 11/12/24 22:03 PM Venous Doppler Study 11/13/24 00:00 EXAM: US venous doppler LE RT CLINICAL HISTORY: right leg erythema. dvt? TECHNIQUE: Ultrasound examination of right lower extremity veins was performed in real time and duplex. One or more of the following were performed- spectral analysis, resistive index, waveform analysis, and pulsed Doppler. COMPARISON: 07/01/2024 US FINDINGS: There is possibility small area of nonocclusive thrombus seen in the proximal great saphenous vein approximately 4.6 cm from the saphenofemoral junction. Another small area of nonocclusive thrombus in the proximal femoral vein, femoral vein proximal and distal to this nonocclusive thrombus is compressible. Occlusive thrombus seen in the proximal popliteal vein and small area of occlusive thrombus seen in the distal posterior tibial vein which shows no flow and is noncompressible. Peroneal anterior tibial vein appears patent and compressible. Compression and Augmentation: Multifocal areas of nonocclusive and occlusive thrombus which shows noncompressibility as described above. Additional Findings: No evidence of intraluminal thrombus. IMPRESSION: Multifocal small areas of occlusive and nonocclusive thrombus seen in the great saphenous vein, proximal femoral vein, proximal popliteal and distal posterior tibial vein. Disclaimer: DVT could be missed early in the disease when clot burden is minimal. For patients with moderate and high pretest probability of DVT and negative ultrasound, the [place] [employer] clinical guidelines recommend testing with a D-dimer assay or repeat ultrasound in 5-7 days. If symptoms worsen, the Society of radiologists in ultrasound recommends repeating ultrasound even earlier. [facility] ER was called at [phone] at 2:11 AM STOCK FEEDER, 11/13/2024, and [facility] was informed regarding the presence of critical medical findings in the report. Electronically signed by Jaiden Krishnan 11-13-2024 03:18 AM Ordered Studies 11/13/24 US venous doppler LE RT Urgent Hospital Course (1) Cellulitis of right le-year-old male with past medical history significant for adrenal insufficiency on chronic steroids, bronchial asthma/COPD, obstructive sleep apnea, history of DVT/PE s/p IVC filter no longer on anticoagulation due to bleeding issues, bladder cancer s/p surgery off of Keytruda secondary to development of myocarditis, prostate cancer s/p radiation therapy, valvular heart disease ,moderate aortic stenosis, mild aortic regurgitation, hypertension, orthostatic hypotension, chronic anemia, mild cognitive impairment and dementia, ambulatory dysfunction ambulates with a walker, urinary incontinence, currently on chronic Devlin, chronic venous insufficiency, CKD stage III who lives at home with his was brought in because of erythematous rash on the inner side of his right thigh extending to his groin and back. states rash started yesterday but got worse today. Patient denies any fevers or itchiness or pain. thinks he was warm. Patient denies any nausea. Denies any chest pain. Denies shortness of breath. Denies abdominal pain. states ,when he was going home his catheter leaked and there were no depends and he was wet. Currently afebrile. Hemodynamically stable. Denies headache. No runny nose or sore throat. Resting comfortably.Patient was recently in the hospital for confusion thought to be from UTI and also VIOLETA and was discharged on Augmentin on 11/10/2024. Cellulitis of right leg- resolved Possible component of contact dermatitis and Sylvia infection Empirically on Rocephin Received a dose of Diflucan Nystatin/triamcinolone cream Clinically improved PT recommends to return home Plan to discharge home today Deep vein thrombosis involving the right lower extremity- increased tendency to develop clot due to history of bladder cancer History of DVT and PE Not on anticoag secondary to bleeding historyradiation-induced cystitis Status post IVC filter Currently on IV heparin Discussed with oncology Dr. Xavi Gramajo on 11/14/2024: Recommends to discharge on low-dose Eliquis 2.5 mg twice a day given high risk for bleeding Monitor for any bleeding issues Discussed with patient's over the phone--agrees to transition to Eliquis IV heparin transition to Eliquis Continue Eliquis on discharge Subconjunctival hemorrhage In setting of anticoagulation use Denies any blurry, double vision Advised to avoid trauma Monitor Chronic Devlin catheter Excoriation of the skin secondary to irritation from catheter leak H/O bladder, prostate cancer Catheter leak likely due to bladder spasms per urology Appreciate urology input replaced catheter Already on oxybutynin, Gemtesa for bladder spasms Continue wound care groin/scrotal region Advised to follow-up with primary urologist Dr. Prado upon discharge Bladder cancer S/P surgery. Keytruda was stopped because of myocarditis on cardiac MRI Prostate cancer s/p radiation treatment and developed radiation-induced cystitis Chronic indwelling Devlin catheter History of frequent UTIs History of dementia Cognitive impairment On memantine Monitor for delirium History of adrenal insufficiency Continue home hydrocortisone on fludrocortisone. Ambulatory dysfunction Ambulates with a walker PT OT when stable Asthma COPD Obstructive sleep apnea Continue home inhalers Monitor oxygen saturations Currently no signs of exacerbation History of orthostatic hypotension Continue home fludrocortisone Immunosuppression due to chronic steroid use GERD Continue PPI DVT px Eliquis CODE STATUS Full code Disposition Patient not interested in rehab placement home with home health (2) Urinary tract infection associated with indwelling urethral catheter: Recent Klebsiella pneumoniae UTI with ongoing treatment with IV ceftriaxone followed by Augmentin on discharge Repeat urine culture has been sent Has been on intravenous ceftriaxone as above (3) Confusion: (4) Dementia: (5) Mild cognitive impairment: (6) Adrenal insufficiency: (7) Bladder cancer: (8) Aortic stenosis: (9) History of pulmonary embolism: Total Time Total Time Spent Total Time Spent (In Minutes): 44 minutes Discharge Plan Discharge Items Patient Disposition: Home - Home Health Services Reason For Visit: RIGHT LEG CELLULITIS Discharge Diagnosis: Cellulitis of right leg Acute right lower extremity deep vein thrombosis Subconjunctival hemorrhage Devlin catheter leak Activity: Per Instructions section Exercise/Sports: Gradually increase as tolerated Non-emergency contact: Primary Care Provider and Urologist Call non-emergency contact if: you have any medication questions, your symptoms worsen, your pain is concerning for you and you have a fever Follow-up/Referrals: Valdemar Prado MD [Outside Practitioners] - (Date & Time 12/06/2024 10:00 AM Provider: [facility] ) Deondre Hill MD [Primary Care Provider] - (Date & Time 11/23/2024 11:20 AM Provider: Chuy Batista MD [facility], [facility] ) Diet: Heart Healthy Addtl Attending Provider Instructions: Follow-up with your primary care physician Dr. Hill and your urologist Dr. Prado as scheduled -- Continue groin wound care as recommended -- Complete antibiotic course as previously prescribed --You are started on Eliquis (apixaban ) 2.5 mg twice a day as recommended by your manager human resources Dr. Xavi Gramajo. Follow-up with your physician for further recommendations Seek immediate medical attention if your symptoms reoccur or worsen Please review medication list provided on discharge for any medication changes as instructed. Please call if you have any questions or problems. You can reach a [facility] hospitalist on duty at [facility] 24 hours a day by calling [phone] Pending Studies at Discharge: No Stand-Alone Forms: My [facility], Smoking Cessation Medications and DC Order Prescriptions: New nystatin-triamcinolone 100,000-0.1 unit/gram-% Ointment 1 applic EXT BID 7 Days Qty: 60 0RF Eliquis 2.5 mg Tablet 2.5 mg PO BID Qty: 60 1RF Continued hydrocortisone [Cortef] 10 mg tablet 20 mg PO QAM Qty: 0 0RF mirabegron [Myrbetriq] 25 mg tablet extended release 24 hr 25 mg PO DAILY hydrocortisone [Cortef] 10 mg tablet 10 mg PO .DAILY @ 1500 Rx Instructions: TAKES 20mg in am. and 10mg at 1500 ferrous sulfate 325 mg (65 mg iron) tablet,delayed release (DR/EC) 325 mg PO 3XWK Rx Instructions: MON, WED, & FRI. magnesium chloride 64 mg tablet,delayed release (DR/EC) 64 mg PO DAILY amoxicillin-pot clavulanate 875-125 mg tablet 1 tab PO BID Qty: 10 0RF Rx Instructions: STARTED 11/10/24 FOR 5 DAYS. acetaminophen 325 mg Tablet 650 mg PO Q4H PRN (Reason: fever or pain) Qty: 30 0RF memantine 10 mg Tablet 10 mg PO BID Qty: 60 0RF lidocaine 5 % Adhesive Patch,Medicated 2 patch transdermal DAILY Qty: 20 0RF ascorbic acid (vitamin C) 1,000 mg Tablet 1,000 mg PO DAILY Qty: 30 0RF cyanocobalamin (vitamin B-12) 1,000 mcg Tablet 1,000 mcg PO DAILY Qty: 30 0RF omeprazole 20 mg capsule,delayed release(DR/EC) 20 mg PO DAILY Qty: 30 0RF epinephrine 0.3 mg/0.3 mL Auto-Injector 0.3 mg IM UD PRN (Reason: Anaphylaxis) Qty: 3 0RF Rx Instructions: prn anaphylaxis solifenacin 5 mg tablet 5 mg PO DAILY Qty: 30 0RF cholecalciferol (vitamin D3) [Vitamin D3] 125 mcg (5,000 unit) Tablet 125 mcg PO DAILY Qty: 30 0RF multivit with min-folic acid [Multivitamin Gummies] 200 mcg Tablet,Chewable 1 tab PO DAILY Qty: 30 0RF Trelegy Ellipta 200-62.5-25 mcg blister with device 1 inh INHALATION DAILY Qty: 1 0RF albuterol sulfate 90 mcg/actuation HFA aerosol inhaler 2 puff INHALATION Q6H PRN (Reason: Shortness Of Breath Or Wheezing) fludrocortisone 0.1 mg tablet 0.1 mg PO DAILY Discharge Orders: Discharge Order (Routine); Ordered 11/17/24 Ordered By: Matt Gongora Admission Data Admit Date/Time: 11/12/24 23:05 Attending Provider: Matt Gongora Admit Provider: Curtis New Primary Care Provider: Deondre Hill Other Providers: Curtis New; Dequan Aguiar; Ania Saenz; Heath Jackson; Trista Leroy Melissa A.; Prateek Cottrell; Faby Mendez; Lucho Lira; Calvin Gtz; [facility]
[2024-11-17 13:58] VITALS: BP 138/81; PULSE 76
== END 2024-11-17 15:30 | disposition home health service (06) | DRG 300 ==
LOC: ED 19:16 → SUATTDRO 23:05 → EDINP 23:05 → 3N 23:36

== ENCOUNTER 2024-12-19 08:03 | Inpatient (IN) ==
--- NOTE | 2024-12-19 08:22 | Emergency Department Note ---
Impression & Plan Complicated urinary tract infection, Elevated lactic acid level ED Provider Note HISTORY OF PRESENT ILLNESS: Patient is a 79-year-old male presenting as an injury alert. Patient reportedly was trying to sit down in a chair when he accidentally missed the seat and fell to the ground, landing on his buttocks. He denies striking his head or loss of consciousness. He has a chronic Tatum catheter in place. Patient has some reported confusion at baseline per the 's report to EMS, but had reported that the patient is slightly more confused over the last few days. Patient denies any chest pain, shortness of breath, nausea or vomiting. He does report some lower abdominal pain but is unclear of how long it has been ongoing for. No reported fevers. Patient denies any chest pain, shortness of breath or lightheadedness prior to his fall. ROS: as above PHYSICAL EXAM: Constitutional: Patient appears in no acute distress. HENT: Head: Normocephalic and atraumatic. Eyes: EOMI, PERRL Mouth/Throat: Mucous membranes moist. Neck: Trachea midline. Neck supple. No midline cervical spine tenderness to palpation. Cardiovascular: RRR, No murmurs, rubs or gallops. Intact distal pulses. Pulmonary/Chest: No respiratory distress. Breath sounds clear and equal bilaterally. No wheezes or rales. No chest wall tenderness to palpation. Abdominal: Abdomen soft, no tenderness, rebound or guarding. Musculoskeletal: No edema, tenderness or deformity noted. Skin: Warm and dry. No rash, erythema, pallor or cyanosis Psychiatric: Appropriate mood and affect for situation. Neurological: Alert and keenly responsive. CN II-XII grossly intact, moving all extremities equally and fully. MDM: - Vitals signs showed hypertension - History obtained via patient and EMS. History as above. - Chronic conditions affecting care: aortic stenosis; hx of PE; dementia; COPD; HTN - Differential diagnoses include, but are not limited to: UTI; pneumonia; pelvic fracture; intra-abdominal injury; viral syndrome; ACS - Order placed for continuous cardiac monitoring. At this time, monitor showed rate of 73 bpm with normal sinus rhythm, per my interpretation. - External medical records reviewed. Discharge summary dated 11/2024 was reviewed. Patient was admitted at that time secondary to cellulitis of right lower extremity and acute right lower extremity DVT. - EKG image interpreted by myself showed normal sinus rhythm. Rate 71 bpm. QT 400. No acute ischemic changes. - Laboratory workup interpreted by myself showed normal WBC; normal PT/INR; stable electrolytes; elevated total bilirubin (1.4); normal AST/ALT; normal lipase; normal procalcitonin; elevated lactic acid (2.3) - CXR image reviewed by myself is negative for pneumonia, per my interpretation. - Pelvic xray negative for fracture - Patient's tatum catheter was exchanged by nursing staff. Urinalysis was sent from the clean Tatum. - UA does show evidence of infection. Patient's urine culture results from 11/24/2024 were reviewed. Patient grew Enterococcus faecium VRE that was sensitive to daptomycin. Daptomycin ordered. - Urine is nitrite positive, so rocephin was also added to antibiotic regimen. - Blood cultures obtained - Patient given 1.5L NS in ER. Patient sepsis fluid volume calculation based on ideal body weight is 2590.80 mL. On review of patient's chart, he has severe aortic stenosis, so no further fluids were administered. - CT abdomen/pelvis with IV contrast showed mild L2 and L3 compression fractures which are new since May 2024, though read to be likely subacute to chronic. No acute traumatic injury within the abdomen or pelvis. Also noted to have some widening of the pubic symphysis with associated erosion which has been seen since his prior CT concerning for potential infectious etiology. - I called patient's Ivet to update her on patient's results and plan of care at 11:40 AM. - Discussion was had with case reviewer about patient's case and need for admission - Hospitalist consulted for admission - [facility] ASSESSMENT AND PLAN: Diagnosis: Complicated UTI; elevated lactic acid level; fall Plan: Admit Past Med/Surg History Problem List (Updated 12/19/24 @ 11:30 by Chanell Young MD) Elevated lactic acid level (Acute) Complicated urinary tract infection (Acute) Fall from chair, initial encounter Hypertension History of DVT (deep vein thrombosis) hx "many years ago" unknown etiology acute on chronic DVT during 12/2022 [facility] admission- Coumadin d/c'ed due to anemia and hematuria; IVC filter placed 12/28/22 COPD (chronic obstructive pulmonary disease) Ambulatory dysfunction Anemia Urinary tract infection associated with indwelling urethral catheter (Acute) Confusion Dementia (Acute) Mild cognitive impairment (Acute) Obstructive sleep apnea (Acute) Adrenal insufficiency (Acute 06/04/14) Stage 3 chronic kidney disease (Acute) History of pulmonary embolism hx "many years ago" unknown etiology Aortic stenosis Severe per 12/08/2024 ECHO Medical History (Updated 12/19/24 @ 11:30 by Chanell Young MD) VRE (vancomycin-resistant Enterococci) Cellulitis Cellulitis of right leg Acute UTI Aspiration pneumonia Chronic indwelling Tatum catheter Complicated urinary tract infection Acute kidney injury superimposed on chronic kidney disease Parainfluenza infection Influenza A (H1N1) Acute hypokalemia Delirium Chronic indwelling Tatum catheter Bladder cancer Hx of prostatic malignancy ~ 2013- s/p Lupron and XRT Weakness Recurrent UTI Anxiety Elevated blood pressure reading Complicated UTI (urinary tract infection) Myocarditis Primary bladder malignant neoplasm Orthostatic hypotension Coagulopathy Fracture of multiple teeth Sacral pressure sore Urethral stricture Ascending aorta dilation Mild- 4.4cm per 11/2022 ECHO Obesity Venous insufficiency (chronic) (peripheral) Radiation cystitis Kidney stones x1 episode. no surgery needed. Cardiac arrest hx r/t IV Contrast Dye "many years ago" Allergic rhinitis Contrast media allergy Hiatal hernia Surgical History S/P IVC filter S/P cataract extraction History of right cataract extraction History of colonoscopy H/O sinus surgery History of appendectomy S/P TURP (status post transurethral resection of prostate) Status post cystoscopy (11/07/13) Family History Father Prostate cancer Brother Prostate cancer Mother Thyroid cancer Cancer Other No family history of adverse response to anesthesia Social History Smoking Status: Never smoker Tobacco Type: Cigarettes Second Hand Exposure: No; Do You Dip or Chew Tobacco: No; Hx Alcohol Use: Yes Alcohol type: beer Alcohol Intake Frequency: Monthly or Less Hx Substance Use: No Preferred Language: French Communication Ability: Effective Visual Impairment: Limited Hearing Ability: Normal Operations Architect Required: No Beliefs That Will Affect Care: None marital status: Current Living Situation: Spouse Current Living Situation Comment: [facility] current occupational status: retired How many Children do You have: 0 Feels Safe at Home: Yes Diet: regular during the past year weight has: decreased > 10 lbs Seatbelt Use: always Do you think of yourself as: straight/heterosexual Gender Identity: Male Assistive Devices: Bedside Commode, Hospital Bed and Walker Allergies Allergies Allergy/AdvReac Type Severity Reaction Status Date / Time Iodinated Contrast Media Allergy Severe LOVERSOL---CARDIAC Verified 11/12/24 20:[address] CONTRAST clindamycin Allergy Intermediate Rash Verified 11/12/24 20:27 cranberry Allergy Unknown Unknown Verified 11/12/24 20:27 caffeine Allergy Verified 11/13/24 15:45 chocolate flavor AdvReac Severe DIARRHEA/ Verified 11/12/24 20:27 Cannot take, interacts w/ medications. pembrolizumab [From [employer]] AdvReac Intermediate myocarditis Verified 11/12/24 20:27 Home Meds Home Medications Medication Instructions Recorded Confirmed mirabegron 25 mg tablet,extended 25 mg PO DAILY 07/28/24 11/12/24 release 24 hr (Myrbetriq) albuterol sulfate 90 mcg/actuation 2 puff inhalation Q6H PRN 08/21/24 11/12/24 aerosol inhaler Shortness Of Breath Or Wheezing fludrocortisone 0.1 mg tablet 0.1 mg PO DAILY 08/21/24 11/12/24 ferrous sulfate 325 mg (65 mg 325 mg PO 3XWK 11/03/24 11/12/24 iron) tablet,delayed release hydrocortisone 10 mg tablet 10 mg PO .DAILY @ 1500 11/03/24 11/12/24 (Cortef) magnesium chloride 64 mg 64 mg PO DAILY 11/03/24 11/12/24 (magnesium chloride) tablet,delayed release Previous Rx's Medication Instructions Recorded acetaminophen 325 mg tablet 650 mg (2 x 325 mg) PO Q4H PRN 06/08/24 fever or pain #30 tabs ascorbic acid (vitamin C) 1,000 mg 1,000 mg PO DAILY #30 tabs 06/08/24 tablet cholecalciferol (vitamin D3) 125 125 mcg PO DAILY #30 tabs 06/08/24 mcg (5,000 unit) tablet (Vitamin D3) cyanocobalamin (vitamin B-12) 1,000 mcg PO DAILY #30 tabs 06/08/24 1,000 mcg tablet epinephrine 0.3 mg/0.3 mL 0.3 mg (0.3 mL) IM UD PRN 06/08/24 injection, auto-injector Anaphylaxis #3 ea fluticasone fur. 200 mcg-umeclid 1 inh inhalation DAILY #1 ea 06/08/24 62.5 mcg-vilant 25 mcg inhalat.powder (Trelegy Ellipta) lidocaine 5 % topical patch 2 patch transdermal DAILY #20 ea 06/08/24 memantine 10 mg tablet 10 mg PO BID #60 tabs 06/08/24 multivitamin with minerals-folic 1 tab PO DAILY #30 tabs 06/08/24 acid 200 mcg chewable tablet (Multivitamin Gummies) omeprazole 20 mg capsule,delayed 20 mg PO DAILY #30 caps 06/08/24 release solifenacin 5 mg tablet 5 mg PO DAILY #30 tabs 06/08/24 hydrocortisone 10 mg tablet 20 mg (2 x 10 mg) PO QAM #0 tabs 07/07/24 (Cortef) amoxicillin 875 mg-potassium 1 tab PO BID #10 tabs 11/10/24 clavulanate 125 mg tablet apixaban 2.5 mg tablet (Eliquis) 2.5 mg PO BID #60 tabs 11/16/24 Results & Data (ED) Vital Signs Vital Signs - 24 hr 12/19/24 08:00 12/19/24 08:20 12/19/24 08:24 Temperature 36.7 C 36.7 C Temperature Source Oral Oral Pulse Rate 85 79 Pulse Rate [Apical] 85 Pulse Rate from SpO2 Sensor Respiratory Rate 24 24 Respiratory Effort / Characteristics Non-Labored Spontaneous Non-Labored Spontaneous Respiratory Depth Normal Normal Respiratory Pattern Regular Regular Blood Pressure 151/78 H Blood Pressure [Right Arm] 151/78 H Blood Pressure Mean 102 Blood Pressure Mean [Right Arm] 102 Blood Pressure Position Lying Blood Pressure Position [Right Arm] Lying Pulse Oximetry 100 100 93 Oxygen Delivery Method Room Air Room Air Room Air Oxygen Flow Rate Sepsis Recent Fever Within 48 Hours No Sepsis New/Unexplained Change in Mental Status N/A Sepsis Action Taken by Nursing No Action Required Oxygen Flow Rate - Titration Pulse Oximetry Post Tiitration 12/19/24 08:30 12/19/24 08:35 12/19/24 09:00 Temperature Temperature Source Pulse Rate 77 Pulse Rate [Apical] 73 Pulse Rate from SpO2 Sensor Respiratory Rate 18 Respiratory Effort / Characteristics Non-Labored Spontaneous Respiratory Depth Normal Respiratory Pattern Regular Blood Pressure 172/83 H Blood Pressure [Right Arm] 162/85 H Blood Pressure Mean 117 Blood Pressure Mean [Right Arm] 110 Blood Pressure Position Blood Pressure Position [Right Arm] Lying Pulse Oximetry 100 Oxygen Delivery Method Nasal Cannula Oxygen Flow Rate 2 Sepsis Recent Fever Within 48 Hours Sepsis New/Unexplained Change in Mental Status Sepsis Action Taken by Nursing Oxygen Flow Rate - Titration Pulse Oximetry Post Tiitration 12/19/24 09:00 12/19/24 09:00 12/19/24 09:15 Temperature Temperature Source Pulse Rate 72 Pulse Rate [Apical] Pulse Rate from SpO2 Sensor 72 Respiratory Rate 18 Respiratory Effort / Characteristics Respiratory Depth Respiratory Pattern Blood Pressure 162/85 H Blood Pressure [Right Arm] Blood Pressure Mean 100 Blood Pressure Mean [Right Arm] Blood Pressure Position Blood Pressure Position [Right Arm] Pulse Oximetry 100 85 L Oxygen Delivery Method Room Air Oxygen Flow Rate Sepsis Recent Fever Within 48 Hours Sepsis New/Unexplained Change in Mental Status Sepsis Action Taken by Nursing Oxygen Flow Rate - Titration 2 Pulse Oximetry Post Tiitration 100 12/19/24 09:30 12/19/24 09:30 12/19/24 09:51 Temperature Temperature Source Pulse Rate 73 72 Pulse Rate [Apical] Pulse Rate from SpO2 Sensor 73 72 Respiratory Rate 15 18 Respiratory Effort / Characteristics Respiratory Depth Respiratory Pattern Blood Pressure 144/79 H Blood Pressure [Right Arm] Blood Pressure Mean 89 Blood Pressure Mean [Right Arm] Blood Pressure Position Blood Pressure Position [Right Arm] Pulse Oximetry 100 100 Oxygen Delivery Method Oxygen Flow Rate Sepsis Recent Fever Within 48 Hours Sepsis New/Unexplained Change in Mental Status Sepsis Action Taken by Nursing Oxygen Flow Rate - Titration Pulse Oximetry Post Tiitration 12/19/24 10:00 12/19/24 10:00 12/19/24 10:03 Temperature Temperature Source Pulse Rate 71 Pulse Rate [Apical] 71 Pulse Rate from SpO2 Sensor 71 Respiratory Rate 20 21 Respiratory Effort / Characteristics Non-Labored Spontaneous Respiratory Depth Normal Respiratory Pattern Regular Blood Pressure 146/75 H Blood Pressure [Right Arm] 146/75 H Blood Pressure Mean 91 Blood Pressure Mean [Right Arm] 98 Blood Pressure Position Blood Pressure Position [Right Arm] Lying Pulse Oximetry 100 100 Oxygen Delivery Method Nasal Cannula Oxygen Flow Rate 2 Sepsis Recent Fever Within 48 Hours Sepsis New/Unexplained Change in Mental Status Sepsis Action Taken by Nursing Oxygen Flow Rate - Titration Pulse Oximetry Post Tiitration 12/19/24 10:30 12/19/24 10:30 12/19/24 10:57 Temperature 36.7 C Temperature Source Pulse Rate 72 69 Pulse Rate [Apical] Pulse Rate from SpO2 Sensor 71 Respiratory Rate 17 16 Respiratory Effort / Characteristics Respiratory Depth Respiratory Pattern Blood Pressure 142/74 H 142/74 H Blood Pressure [Right Arm] Blood Pressure Mean 98 Blood Pressure Mean [Right Arm] Blood Pressure Position Blood Pressure Position [Right Arm] Pulse Oximetry 100 100 Oxygen Delivery Method Nasal Cannula Oxygen Flow Rate 2 Sepsis Recent Fever Within 48 Hours Sepsis New/Unexplained Change in Mental Status Sepsis Action Taken by Nursing Oxygen Flow Rate - Titration Pulse Oximetry Post Tiitration 12/19/24 11:00 Temperature Temperature Source Pulse Rate Pulse Rate [Apical] 73 Pulse Rate from SpO2 Sensor Respiratory Rate 15 Respiratory Effort / Characteristics Non-Labored Spontaneous Respiratory Depth Normal Respiratory Pattern Regular Blood Pressure Blood Pressure [Right Arm] 143/79 H Blood Pressure Mean Blood Pressure Mean [Right Arm] 100 Blood Pressure Position Blood Pressure Position [Right Arm] Lying Pulse Oximetry 100 Oxygen Delivery Method Nasal Cannula Oxygen Flow Rate 2 Sepsis Recent Fever Within 48 Hours Sepsis New/Unexplained Change in Mental Status Sepsis Action Taken by Nursing Oxygen Flow Rate - Titration Pulse Oximetry Post Tiitration Laboratory Data 12/19/24 08:14 12/19/24 08:14 Lab Results 12/19/24 12/19/24 12/19/24 Range/Units 08:14 08:32 08:52 WBC 9.60 (4.8-10.8) K/ul RBC 4.12 L (4.70-6.10) M/uL Hgb 11.9 L (14.0-18.0) g/dl Hct 35.7 L (42.0-52.0) % MCV 86.7 (80.0-100.0) fL MCH 28.9 (25.0-34.0) pg MCHC 33.3 (32.0-36.0) g/dL RDW Std Deviation 48.9 H (36.4-46.3) fL RDW Coeff of Robert 15.7 H (11.5-14.5) % Plt Count 221 (130-400) K/uL MPV 9.0 L (9.4-12.4) fL Immature Gran % (Auto) 0.3 % Neut % (Auto) 70.9 % Lymph % (Auto) 17.9 % Runnels % (Auto) 9.2 % Eos % (Auto) 1.4 % Baso % (Auto) 0.3 % Neut # (Auto) 6.81 H (1.40-6.50) K/uL Lymph # (Auto) 1.72 (1.20-3.40) K/uL Runnels # (Auto) 0.88 H (0.11-0.59) K/uL Eos # (Auto) 0.13 (0.00-0.50) K/uL Baso # (Auto) 0.03 (0.00-0.20) K/uL Immature Gran # (Auto) 0.03 (0.01-0.20) K/uL PT 11.6 (9.0-12.0) Seconds INR 1.1 (0.9-1.1) Sodium 142 (136-145) mmol/L Potassium 3.8 (3.5-5.1) mmol/L Chloride 110 H (98-107) mmol/L Carbon Dioxide 24 (21-32) mmol/L Anion Gap 8 (3-11) BUN 15 (6-23) mg/dl Creatinine 1.28 (0.6-1.4) mg/dl Est Cr Clr Drug Dosing 60.9 ml/min eGFR 57.29 BUN/Creatinine Ratio 11.7 (10-20) Glucose 93 (70-99(Fasting)) mg/dl Lactate 2.3 H* (0.4-2.0) mmol/L Calcium 8.9 (8.6-10.3) mg/dl Magnesium 1.8 (1.7-2.4) mg/dl Total Bilirubin 1.4 H (0.2-1.0) mg/dl AST 12 L (13-39) U/L ALT 7 (7-52) U/L Alkaline Phosphatase 88 (34-104) U/L Troponin I High Sens 5.5 (0-20) pg/ml Total Protein 6.5 (6.0-8.3) gm/dl Albumin 3.8 (3.4-5.0) gm/dl Globulin 2.7 (2.5-4.0) gm/dl Albumin/Globulin Ratio 1.4 (0.9-2) Lipase 5 L (11-82) U/L Procalcitonin 0.12 (0-0.5) ng/ml Urine Color Yellow Urine Appearance Cloudy A (Clear) Urine pH 7.0 (4.5-7.5) Ur Specific [place] 1.011 (1.000-1.030) Urine Protein 2+ H (Negative) Urine Glucose (UA) Negative (Negative) Urine Ketones Negative (Negative) Urine Blood 2+ H (Negative) Urine Nitrite Positive A (Negative) Urine Bilirubin Negative (Negative) Urine Urobilinogen Negative (Negative) Ur Leukocyte Esterase 3+ H (Negative) Urine WBC (Auto) >50 H (0-5) /hpf Urine RBC (Auto) 11-20 H (0-2) /hpf U Hyaline Cast (Auto) 3-5 H (0-2) /lpf U Epithel Cells (Auto) 0-2 (0-2) /hpf Urine Bacteria (Auto) 4+ H (None Seen) Urine Yeast Present A (None Prsent) Administered Medications Sodium Chloride (Nss) 2,000 mls @ 999 mls/hr IV .Q2H1M ONE Stop: 12/19/24 13:26 Last Admin: 12/19/24 11:38 Dose: 999 mls/hr Documented By: DANIEL Discontinued Medications Daptomycin 1,025 mg/ Syringe 20.5 mls @ 10.25 mls/min IV NOW ONE; Protocol Stop: 12/19/24 10:20 Last Admin: 12/19/24 11:27 Dose: 10.25 mls/min Documented By: DANIEL Ceftriaxone Sodium (Rocephin) 2,000 mg in 50 mls @ 100 mls/hr IV NOW STA Stop: 12/19/24 10:40 Last Infusion: 12/19/24 11:27 Dose: Infused Documented By: Admin: 12/19/24 10:47 Dose: 100 mls/hr Documented By: DANIEL Imaging Data Radiologist's Impression: Abdomen/Pelvis CT 12/19/24 08:18 CT OF THE ABDOMEN AND PELVIS WITHOUT CONTRAST CLINICAL HISTORY: Lower abdominal pain following fall. COMPARISON STUDY: CT of the abdomen and pelvis June 01, 2024. Pelvis radiograph performed earlier today. TECHNIQUE: Axial images of the abdomen and pelvis were obtained without IV contrast. Images were reviewed in the axial, sagittal, and coronal planes. Automated exposure control was utilized for the study. A dose lowering technique was utilized adhering to the principles of ALARA. FINDINGS: A small pericardial effusion is similar to CT of June 01, 2024. There is a trace right pleural effusion. No hemoperitoneum or pneumoperitoneum is present. The solid abdominal viscera are suboptimally assessed on unenhanced exam. There is no evidence for traumatic injury to the liver, spleen, adrenal glands, kidneys or pancreas. A 4 mm left renal calculus is present. There are no ureteral calculi. Mild left hydroureteronephrosis is new since prior CT. There is a 2 mm right upper pole renal calculus. IVC filter is in place. There is no evidence for a bowel obstruction. The prostate is surgically absent. Tatum balloon within the bladder is noted. Bladder wall thickening with adjacent stranding is similar to prior CT. Widening of the symphysis pubis with associated erosion of the medial pubic bones has developed. 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 No acute pelvic or hip fractures are present. L2 and L3 superior endplate compression fractures have developed since CT of June 01, 2024. No retropulsion. There is no extension into the posterior elements. There is 40% loss of height of the L2 vertebral body and 30% loss of height of the L3 vertebral body. IMPRESSION: 1. Mild L2 and L3 compression fractures, new since CT of June 01, 2024. These are age indeterminate although likely subacute to chronic. 2. No additional traumatic findings within the abdomen or pelvis. 3. Widening of the symphysis pubis with associated erosion of the medial pubic bones which has developed since prior CT. This may be degenerative however an infectious process cannot be excluded. 4. Interval development of mild left hydroureteronephrosis of uncertain etiology. Left ureter dilated to the level the bladder. Persistent bladder wall thickening with adjacent stranding, unchanged. 5. Bilateral nephrolithiasis. No ureteral calculi. ACT 112: Negative or not required by law. Electronically signed by: Boris Keys M.D. 12/19/2024 9:07 AM Pelvis X-Ray 12/19/24 08:18 XR pelvis 1-2V routine CLINICAL HISTORY: fall COMPARISON: 07/28/2024 FINDINGS: Stable small surgical clips at the pubic symphysis. Stable mild degenerative changes at the hips. Stable mild sclerosis at the pubis. No fracture or dislocation seen. IVC filter is partially visualized. IMPRESSION: No pelvic fracture seen. ACT 112: Negative or not required by law. Electronically signed by: Hawk Hensley M.D. 12/19/2024 8:45 AM Chest X-Ray 12/19/24 08:19 XR chest 1V portable CLINICAL HISTORY: fall COMPARISON STUDY: 11/12/2024 FINDINGS: Stable mild cardiomegaly without pulmonary vascular congestion. Stable mild scarring or atelectasis at the left lung base. No other consolidation or pleural effusion. No pneumothorax. No acute osseous finding seen. IMPRESSION: No acute findings. ACT 112: Negative or not required by law. Electronically signed by: Hawk Hensley M.D. 12/19/2024 8:44 AM Discharge Plan Visit Data Chief Complaint: Trauma Stated Complaint: FALL, ED Provider: Chanell Young Discharge Problem: Complicated urinary tract infection, Elevated lactic acid level Condition: Fair Forms Stand Alone Forms: [facility] [employer] Prescriptions Prescriptions: No Action hydrocortisone [Cortef] 10 mg tablet 20 mg PO QAM Qty: 0 0RF mirabegron [Myrbetriq] 25 mg tablet extended release 24 hr 25 mg PO DAILY hydrocortisone [Cortef] 10 mg tablet 10 mg PO .DAILY @ 1500 Rx Instructions: TAKES 20mg in am. and 10mg at 1500 ferrous sulfate 325 mg (65 mg iron) tablet,delayed release (DR/EC) 325 mg PO 3XWK Rx Instructions: MON, WED, & FRI. magnesium chloride 64 mg tablet,delayed release (DR/EC) 64 mg PO DAILY amoxicillin-pot clavulanate 875-125 mg tablet 1 tab PO BID Qty: 10 0RF Rx Instructions: STARTED 11/10/24 FOR 5 DAYS. acetaminophen 325 mg Tablet 650 mg PO Q4H PRN (Reason: fever or pain) Qty: 30 0RF memantine 10 mg Tablet 10 mg PO BID Qty: 60 0RF lidocaine 5 % Adhesive Patch,Medicated 2 patch transdermal DAILY Qty: 20 0RF ascorbic acid (vitamin C) 1,000 mg Tablet 1,000 mg PO DAILY Qty: 30 0RF cyanocobalamin (vitamin B-12) 1,000 mcg Tablet 1,000 mcg PO DAILY Qty: 30 0RF omeprazole 20 mg capsule,delayed release(DR/EC) 20 mg PO DAILY Qty: 30 0RF epinephrine 0.3 mg/0.3 mL Auto-Injector 0.3 mg IM UD PRN (Reason: Anaphylaxis) Qty: 3 0RF Rx Instructions: prn anaphylaxis solifenacin 5 mg tablet 5 mg PO DAILY Qty: 30 0RF cholecalciferol (vitamin D3) [Vitamin D3] 125 mcg (5,000 unit) Tablet 125 mcg PO DAILY Qty: 30 0RF multivit with min-folic acid [Multivitamin Gummies] 200 mcg Tablet,Chewable 1 tab PO DAILY Qty: 30 0RF Trelegy Ellipta 200-62.5-25 mcg blister with device 1 inh INHALATION DAILY Qty: 1 0RF albuterol sulfate 90 mcg/actuation HFA aerosol inhaler 2 puff INHALATION Q6H PRN (Reason: Shortness Of Breath Or Wheezing) fludrocortisone 0.1 mg tablet 0.1 mg PO DAILY Eliquis 2.5 mg Tablet 2.5 mg PO BID Qty: 60 1RF Referrals Referrals: Deondre Hill MD [Primary Care Provider] -
[2024-12-19 08:29] LABS: Basophils # (auto) 0.03 K/uL (0.00-0.20); Basophils % (auto) 0.3 %; Eosinophils # (auto) 0.13 K/uL (0.00-0.50); Eosinophils % (auto) 1.4 %; Hematocrit (blood only) 35.7 % (42.0-52.0); Hemoglobin 11.9 g/dl (14.0-18.0); Immature Granulocytes # (auto) 0.03 K/uL (0.01-0.20); Immature Granulocytes % (auto) 0.3 %; Lymphocytes # (auto) 1.72 K/uL (1.20-3.40); Lymphocytes % (auto) 17.9 %; Mean Corpuscular Hemoglobin 28.9 pg (25.0-34.0); Mean Corpuscular Hgb Conc 33.3 g/dL (32.0-36.0); Mean Corpuscular Volume 86.7 fL (80.0-100.0); Monocytes # (auto) 0.88 K/uL (0.11-0.59); Monocytes % (auto) 9.2 %; Neutrophils # (auto) 6.81 K/uL (1.40-6.50); Neutrophils % (auto) 70.9 %; Platelet Count 221 K/uL (130-400); RDW Coefficient of Variation 15.7 % (11.5-14.5); RDW Standard Deviation 48.9 fL (36.4-46.3); Red Blood Count 4.12 M/uL (4.70-6.10)
--- NOTE | 2024-12-19 08:46 | XRay Report ---
XR chest 1V portable CLINICAL HISTORY: fall COMPARISON STUDY: 11/12/2024 FINDINGS: Stable mild cardiomegaly without pulmonary vascular congestion. Stable mild scarring or ate lectasis at the left lung base. No other consolidation or pleural effusion. No pneumothorax. No acute osseous finding seen. IMPRESSION: No acute findings. ACT 112: Negative or not required by law. Electronically signed by: Hawk Hensley M.D. 12/19/2024 8:44 AM
[2024-12-19 08:47] LABS: Albumin Globulin Ratio 1.4 (0.9-2); Albumin Level 3.8 gm/dl (3.4-5.0); BUN Creatinine Ratio 11.7 (10-20); Bilirubin,Total 1.4 mg/dl (0.2-1.0); Calcium 8.9 mg/dl (8.6-10.3); Creatinine Clr Calc Pharmacy 60.9 ml/min; Globulin 2.7 gm/dl (2.5-4.0); Magnesium 1.8 mg/dl (1.7-2.4); Potassium 3.8 mmol/L (3.5-5.1); Total Protein 6.5 gm/dl (6.0-8.3)
--- NOTE | 2024-12-19 08:47 | XRay Report ---
XR pelvis 1-2V routine CLINICAL HISTORY: fall COMPARISON: 07/28/2024 FINDINGS: Stable small surgical clips at the pubic symphysis. Stable mild degenerative changes at th e hips. Stable mild sclerosis at the pubis. No fracture or dislocation seen. IVC filter is partially visualized. IMPRESSION: No pelvic fracture seen. ACT 112: Negative or not required by law. Electronically signed by: Hawk Hensley M.D. 12/19/2024 8:45 AM
[2024-12-19 08:54] LABS: Troponin I High Sensitivity 5.5 pg/ml (0-20)
[2024-12-19 08:57] LABS: INR 1.1 (0.9-1.1); Prothrombin Time 11.6 Seconds (9.0-12.0)
--- NOTE | 2024-12-19 09:09 | CT Scan Report ---
CT OF THE ABDOMEN AND PELVIS WITHOUT CONTRAST CLINICAL HISTORY: Lower abdominal pain following fall. COMPARISON STUDY: CT of the abdomen and pelvis June 01, 2024. Pelvis radiograph performed earlier today. TECHNIQUE: Axial images of the abdomen and pelvis were obtained without IV contrast. Images were revi ewed in the axial, sagittal, and coronal planes. Automated exposure control was utilized for the carter dy. A dose lowering technique was utilized adhering to the principles of ALARA. FINDINGS: A small pericardial effusion is similar to CT of June 01, 2024. There is a trace right p leural effusion. No hemoperitoneum or pneumoperitoneum is present. The solid abdominal viscera are quintana boptimally assessed on unenhanced exam. There is no evidence for traumatic injury to the liver, splee n, adrenal glands, kidneys or pancreas. A 4 mm left renal calculus is present. There are no ureteral calculi. Mild left hydroureteronephrosis is new since prior CT. There is a 2 mm right upper pole audra l calculus. IVC filter is in place. There is no evidence for a bowel obstruction. The prostate is jahaira gically absent. Devlin balloon within the bladder is noted. Bladder wall thickening with adjacent stra nding is similar to prior CT. Widening of the symphysis pubis with associated erosion of the medial p ubic bones has developed. 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 No acute pelvic or hip fractures are present. L2 and L3 superior endplate compression fractures have dev eloped since CT of June 01, 2024. No retropulsion. There is no extension into the posterior elemen ts. There is 40% loss of height of the L2 vertebral body and 30% loss of height of the L3 vertebral b lb. IMPRESSION: 1. Mild L2 and L3 compression fractures, new since CT of June 01, 2024. These are age indeterminat e although likely subacute to chronic. 2. No additional traumatic findings within the abdomen or pelvis. 3. Widening of the symphysis pubis with associated erosion of the medial pubic bones which has develo ped since prior CT. This may be degenerative however an infectious process cannot be excluded. 4. Interval development of mild left hydroureteronephrosis of uncertain etiology. Left ureter dilated to the level the bladder. Persistent bladder wall thickening with adjacent stranding, unchanged. 5. Bilateral nephrolithiasis. No ureteral calculi. ACT 112: Negative or not required by law. Electronically signed by: Boris Keys M.D. 12/19/2024 9:07 AM
[2024-12-19 09:30] LABS: Appearance Urine Cloudy (Clear); Bacteria Urine Automated 4+ (None Seen); Bilirubin Urine Negative (Negative); Blood Urine 2+ (Negative); Color Urine Yellow; Epithelial Cell Urine Auto 0-2 /hpf (0-2); Glucose Urine UA Negative (Negative); Ketones Urine Negative (Negative); Leukocyte Esterase Urine 3+ (Negative); Nitrite Urine Positive (Negative); Protein Urine 2+ (Negative); Specific Gravity Urine 1.011 (1.000-1.030); Urobilinogen Urine Negative (Negative); WBC Urine Automated >50 /hpf (0-5)
--- OUTSIDE RECORDS SUMMARY | 2024-12-19 09:40 | External Medical Summary | Summary of Care ---
Author Name Unknown Organization [facility] Address [address] [place] [address] Phone [phone] Care Team Providers Care Drop Forge Operator Name Role Phone Chuy Batista MD Primary Care Provider [phone]- [phone] Reason for Referral * Evaluate & Treat - Unlimited Visits (Within 10 days (routine)) - Authorized Specialty Diagnoses / Procedures Referred By Contac t Referred To Contact HOME CARE / Home Care Diagnoses Indwelling Devlin catheter present Recurrent UTI Dementia without behavioral disturbance, psychotic disturbance, mood disturbance, or anxiety, unspecified dementia severity, unspecified dementia type (HCC) Chuy Batista MD [address] [facility] [place] [address] Phone: tel: fax: Referral ID Status Reason Start Date Expiration Date Visits Requested Visits Authorized [id number] Authorized Specialty Services Required 12/07/2024 999 [id number] Question Answer Referral Priority Within 10 days (routine) Where should this appointment be scheduled? Radha Comments Documentation of Xfef-bm-Gsws Encounter Addendum Patient Name: Branden High I certify that this patient is under my care and that I, or a nurse practitioner or physician's medical research assistant working with me, had a kidz-om-erjb encounter that meets the physician pymx-fd-oolp encounter requirements with this patient on: The encounter with the patient was in whole, or in part, for the following medical condition, which is the primary reason for home health care (List medical condition): Dementia with mild cognitive impairment I certify that, based on my findings, the following services are medically necessary home health services: Nursing, Physical Therapy, Occupational Therapy, and CUSTOM TAILOR APPRENTICE To provide the following care/treatments: (All hospitalists not following the patient after discharge should complete this section): Physical Therapy, Occupational Therapy, Medication Management, Hygiene assistance, ADL assistance, reorientation Primary Care Physician to follow home care plan of care after discharge: Yes My clinical findings support the need for the above services because: Yes Further, I certify that my clinical findings support that this patient is homebound (i.e. Absences from home require considerable and taxing effort and are for medical reasons or restoration services or infrequently or of short duration when for other reason) because: Yes Physician Signature: Date of Signature: Physician Printed Name: Chuy Batista MD * Evaluate & Treat - Unlimited Visits (Within 30 days (routine)) - Authorized Specialty Diagnoses / Procedures Referred By Monik de leon Referred To Contact HOME CARE / Home Care Diagnoses Indwelling Devlin catheter present Recurrent UTI Dementia without behavioral disturbance, psychotic disturbance, mood disturbance, or anxiety, unspecified dementia severity, unspecified dementia type ([facility]) Chuy Batista MD [address] [place] [address] Phone: tel: fax: Referral ID Status Reason Start Date Expiration Date Visits Requested Visits Authorized [id number] Authorized Specialty Services Required 12/05/2024 999 999 Question Answer Referral Priority Within 30 days (routine) Where should this appointment be scheduled? [facility] Reason for Visit * Reason Onset Date Comments Referral 12/05/2024 Nursing Home, PT / OT and Home Health Aide. Fax 12/05/2024 Encounter Details Date Type Department Care Team (Late st Contact Info) Description 12/05/2024 Telephone [facility], Valarie Chaparromarce Singh [address] [phone] Chuy Batista MD [address] [place] [phone] Referral (Nursing Home, PT / OT and Merritt... Allergies Active Allergy Reactions Criticality Noted Date Comments Chocolate Diarrhea 05/14/2023 Chocolate Flavoring Agent (Non-Screening) High 10/09/2023 Other Reaction(s): DIARRHEA/ Cannot take, interacts w/ medications. Clindamycin Hcl 09/24/2005 rash Cranberry 10/20/2023 Iodinated Contrast Media 10/01/2015 Ioversol Other (Please comment) High 08/10/[address] IV DYE Pembrolizumab High 10/10/2023 Other Reaction(s): myocarditis documented as of this encounter (statuses as of 12/07/2024) Medications Trelegy Ellipta 200-62.5-25 MCG/ACT Aerosol Powder Breath Activated (Fluticasone-Umec lidinium-Vilanter ol) Inhale 1 Puff by mouth every evening. 60 Blister Dosing Unit 11 3 Active EpiPen 2-Pedro 0.3 MG/0.3ML Injection Solution Auto-injectorIndi cations:Anaphylax is, sequela USE DIRECTED 1 Each 3 Active Multi Adult Gummies Oral Tablet [...] Take 119 g by mouth once. Active B-12 1000 MCG Oral Tablet Take by mouth daily. Active Magnesium Chloride 64 MG Oral Tablet Take by mouth. Act anthony Magnesium Hydroxide 400 MG/5ML Oral Suspension (Milk of Magnesia) Take 30 mL by mouth as needed for Constipation. Active Fludrocortisone Acetate 0.1 MG Oral Tablet (Florinef) Take 1 Tablet by mouth in the morning. 30 Tablet 11 4 Active Magnesium Cl-Calcium Carbonate 71.5-119 MG Oral Tablet Delayed Release Take 64 mg by mouth in the morning and 64 mg before bedtime. 4 Active Hydrocortisone 10 MG Oral Tablet (Cortef)Indicatio ns:Adrenal insufficiency (HCC) Take 20 mg in AM and 10 mg in afternoon 90 Tablet 5 4 Active Lactobacillus Probiotic Oral Tablet Take by [...] minutes as needed for Pain, Chest. Active Memantine HCl 10 MG Oral Tablet (Namenda) Take 1 tab by mouth twice per day 60 Tablet 5 4 Active Lidocaine 4 % External Patch (Aspercreme)Indic ations:Chronic bilateral low back pain without sciatica Place 1 patch on skin over affected area daily (leave on for 12 hours). 30 Patch 1 4 Active Omeprazole 20 MG Oral Capsule Delayed Release (PriLOSEC)Indicat ions:Gastroesopha geal reflux disease, unspecified whether esophagitis present TAKE 1 CAPSULE BY MOUTH EVERY MORNING 90 Capsule 3 4 Active Vitamin D 125 MCG (5000 UT) Oral Capsule Take 1 capsule daily 30 Capsule 11 4 Active Mirabegron ER 25 MG Oral Tablet Extended Release 24 Hour (Myrbetriq) Take 1 Tablet by mouth in the morning. 30 Tablet 11 4 Active Solifenacin Succinate 5 MG Oral Tablet (VESIcare) Take 1 Tablet by mouth in the morning. 30 Tablet 6 5 Active Fluticasone Propionate 50 MCG/ACT Nasal Suspension (Flonase) Administer 2 Sprays into nostril in the morning. 16 mL 3 5 Active Eliquis 2.5 MG Oral Tablet Take 1 Tablet by mouth in the morning and 1 Tablet before bedtime. 5 Active Nystatin-Triamcin olone 352349-6.1 UNIT/GM-% External Ointment (Mycolog) Apply 1 Application topically to affected area in the morning and 1 Application before bedtime. 5 Active Linezolid 600 MG Oral Tablet (Zyvox) Take 1 Tablet by mouth in the morning and 1 Tablet before bedtime. Do all this for 6 days. 12 Tablet 5 025 Active documented as of this encounter (statuses as of 12/07/2024) Active Problems Problem Noted Date Diagnosed Date Enterococcus UTI 12/01/2024 Fall at home 12/01/2024 Sepsis with acute renal failure 12/01/2024 Ambulatory dysfunction 12/01/2024 Chronic indwelling Devlin catheter 12/01/2024 History of prostate cancer 12/01/2024 Pressure injury of sacral region, stage 2 2024 Primary adrenocortical insufficiency 07/24/2024 Orthostatic hypotension 10/21/2023 S/P IVC filter 10/21/2023 Malnutrition of moderate degree 09/13/2023 Elevated [...] as of this encounter (statuses as of 12/07/2024) Resolved Problems Problem Noted Date Diagnosed Date Resolved Date 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 No 12/01/2024 Do you have concerns for you r family's safety? (Household - for ages 0-17 years) Not on file 12/01/2024 Utilities Answer Date Recorded Do you have trouble paying y our heating, water, or electric bill? No 12/01/2024 Is your family able to pay t he heat, water, or electric bill? (Household - for ages 0-17 years) Not on file 12/01/2024 Does your family have access to good internet? (Household - for ages 0-17 years) Not on file 12/01/2024 Employment Status Answer Date Recorded Are you [...] to medical visits or work? Never True 12/01/2024 Does your family have a hard time getting a ride to doctors visits? (Household - for ages 0-17 years) Not on file 12/01/2024 Has lack of transportation k ept you from medical appointments, meetings, work, or from getting things needed for daily living? Check all that apply. No 12/01/2024 Do you (or your family) have trouble finding or paying for a ride (transportation)? (Household - for ages 0-17 years) Not on file 12/01/2024 Housing Stability Answer Date Recorded Do you currently live in a s helter or have no steady place to sleep at night? No 12/01/2024 READ ONLY Do you think you a re at risk of becoming homeless? No 12/01/2024 Does your family worry about paying for your home or becoming homeless? (Household - for ages 0-17 years) Not on file 0 12/01/2024 Are you homeless or worried that you might be in the future? No 12/01/2024 Are you (or your family) merritt eless or worried that you might be [...] you need food for this week? No 12/01/2024 Sex and Gender Information Value Date Recorded Sex Assigned at Male 01/31/2019 8:25 AM EDT Legal Sex Male 6:20 AM EST Gender Identity Male 01/31/2019 8:25 AM EDT Sexual Orientation Straight 12/27/2023 10 :34 AM EDT documented as of this encounter Functional Status * Are you deaf or do you have serious difficulty hearing? Answer Date of Assessment Author No 12/01/2024 10:07 AM Angie Sears i, RN * Are you blind or do you have serious difficulty seeing, even when wearing glasses? Answer Date of Assessment Author No 12/01/2024 10:07 AM Angie Sears i, RN * Do you have serious difficulty walking or climbing stairs? (5 years old or older) Answer Date of Assessment Author Yes 12/01/2024 10:07 AM Angie Sears i, RN * Do you have difficulty dressing or bathing? (5 years old or older) Answer Date of Assessment Author No 12/01/2024 10:07 AM Angie Sears i, RN * Because of a physical, mental, or emotional condition, do you have difficulty doing errands alone such as visiting a doctor’s office or shopping? (15 years old or older) Answer Date of Assessment Author Yes 12/01/2024 10:07 AM Angie Sears i, RN documented as of this encounter Mental Status * Because of a physical, mental, or emotional condition, do you have serious difficulty concentrating, remembering, or making decisions? (5 years old or older) Answer Entry Date Author Yes 12/01/2024 10:07 AM EDT Angie Vergara i, RN documented in this encounter Miscellaneous Notes * Telephone Encounter - Ania Neal OSA - 12/07/2024 4:26 PM EDT Done. 12/07/2024 * Telephone Encounter - Beth Acosta OSA - 12/07/2024 11:38 AM EDT Kadie zacarias needs a facesheet and copy of the insurance card to be faxed to them. Thank you * Telephone Encounter - Michelle Shane LPN - 12/07/2024 10:01 AM EDT Faxed as requested. * Telephone Encounter - Richard Stern LPN - 12/07/2024 9:54 AM EDT New referral signed, scheduling please assist * Telephone Encounter - Paige Krishna OSA - 12/07/2024 9:21 AM EDT Caller: [facility] Reason for patient's call: Calling regarding spouse's request for Home Health Care for Pt to include Nursing Home, PT / OT and Home Health Aide. Iwona advised that referral must indicate all four (4) types of service. Iwona is also requesting Demographics/Face sheet for pt as well. Attn: Iwona * Telephone Encounter - Chuy Batista MD - 12/05/2024 7:58 PM EDT Tried to call patient due to touch base after missed appt today. No answer and no room left in voicemail for a message. Fine with me for home health - ordered. Please assist with setting up with desired agency listed below. * Telephone Encounter - Leesa Guillen OSA - 12/05/2024 4:00 PM EDT Pts is calling in requesting a referral for home health for this patient. They are interested in [facility] in [place] for Nursing, Aide PT, and OT Phone Number for them is [phone] Please advise documented in this encounter Plan of Treatment Upcoming Encounters Date Type Department Care Team (Late st Contact Info) Description 12/08/2024 1:00 PM EDT Cardiac Studies [place] [address] [phone] 01/03/2025 3:00 PM EDT Procedure Only Urology Miri Orozco [address] [place] [address] Willi Smith Jr., MD [address] [place] [address] 01/05/2025 11:30 AM EDT Imaging Radiology [address] [place] [phone] 01/10/2025 9:30 AM EDT Office Visit Hematology/Oncology [facility] [address] [place] [phone] Xavi Gramajo MD [address] [facility] [place] [address] 05/18/2025 11:00 AM EDT Office Visit Hematology/Oncology [facility] [address] [facility] [place] [address] Xavi Graamjo MD [address] [facility] [place] [address] 05/22/2025 10:45 AM EDT Procedure Only Urology, [facility] [address] [place] [phone] Valdemar Prado MD [address] [place] [address] Scheduled Referrals Name Type Priority Associated Diagnoses Orde r Schedule HOME HEALTH REFERRAL OP Referral Within 30 days (routine) Indwelling Devlin catheter present Recurrent UTI Dementia without behavioral disturbance, psychotic disturbance, mood disturbance, or anxiety, unspecified dementia severity, unspecified dementia type (HCC) Ordered: 12/05/2024 HOME HEALTH REFERRAL OP Referral Within 10 days (routine) Indwelling Devlin catheter present Recurrent UTI Dementia without behavioral disturbance, psychotic disturbance, mood disturbance, or anxiety, unspecified dementia severity, unspecified dementia type (HCC) Ordered: 12/07/2024 Health Maintenance Due Date Last Done Comments Albumin/Creatinine Ratio 1963 DTap/Tdap Vaccines (1 - Tdap) 1964 Adult Wellness Visit 02/01/2020 01/31/2019 COVID-19 Vaccine ( season) 2024 07/22/2022, 07/22/2022, 02/11/2022, Additional history exists CKD PHOS USE SMARTSET 75646 09/11/202408/17, 09/11/2023, 07/14/2021, Additional history exists Depression Screening 12/26/2024 12/27/2023 GFR 06/03/2025 12/02/2024, 11/14, 10/13/2024, Additional history exists CKD HGB USE SMARTSET 67044 12/02/202512/02, 12/01/2024, 12/01/2024, Additional history exists Pneumococcal Vaccine: 50+ Years [...] as of this encounter Visit Diagnoses Diagnosis Dementia without behavioral disturbance, psychotic disturbance, mood disturbance, or anxiety, unspecified dementia severity, unspecified dementia type (HCC)- Primary Indwelling Devlin catheter present Recurrent UTI Urinary tract infection, site not specified documented in this encounter Advance Directives * Full Code (Latest Code Status on File) Date Activated Date Inactivated Comments 12/01/2024 9:30 AM 12/02/2024 4:15 PM This order r eflects the patients wishes and were consensually agreed upon. Question Answer Comments Discussion of Advance Directives occurred with: Family * Full Code Date Activated Date Inactivated Comments 09/11/2023 11:48 [...] Power of Attor philipp? No Care Teams Drop Forge Operator Relationship Specialty Start Date End Date Chuy Batista MD [address] [address] PCP - General Family Medicine 09/14/24 documented as of this encounter
--- OUTSIDE RECORDS SUMMARY | 2024-12-19 09:40 | External Medical Summary | Summary of Care ---
Author Name Unknown Organization [facility] Address [address] [place] [address] Phone [phone] Care Team Providers Care Manager Lighting Name Role Phone Chuy Batista MD Primary Care Provider [phone]- [phone] Reason for Referral * Evaluate & Treat - Unlimited Visits (Within 10 days (routine)) - Authorized Specialty Diagnoses / Procedures Referred By Contac t Referred To Contact HOME CARE / Home Care Diagnoses Indwelling Devlin catheter present Recurrent UTI Dementia without behavioral disturbance, psychotic disturbance, mood disturbance, or anxiety, unspecified dementia severity, unspecified dementia type (HCC) Chuy Batista MD [address] [place] [address] Phone: tel: fax: Referral ID Status Reason Start Date Expiration Date Visits Requested Visits Authorized [id number] Authorized Specialty Services Required 12/07/2024 999 999 Question Answer Referral Priority Within 10 days (routine) Where should this appointment be scheduled? Radha Comments Documentation of Iwch-qs-Fnbk Encounter Addendum Patient Name: Branden High I certify that this patient is under my care and that I, or a nurse practitioner or physician's librarian assistant working with me, had a sqjr-pw-dsvz encounter that meets the physician teia-zo-egmh encounter requirements with this patient on: The encounter with the patient was in whole, or in part, for the following medical condition, which is the primary reason for home health care (List medical condition): Dementia with mild cognitive impairment I certify that, based on my findings, the following services are medically necessary home health services: Nursing, Physical Therapy, Occupational Therapy, and DISABILITY CASE MANAGER To provide the following care/treatments: (All hospitalists [...] effort and are for medical reasons or bahai services or infrequently or of short duration [...] anxiety, unspecified dementia severity, unspecified dementia type ([facility]) Chuy Batista MD [address] [place] [address] Phone: tel: fax: Referral ID Status Reason Start Date Expiration Date Visits Requested Visits Authorized [id number] Authorized Specialty Services Required 12/05/2024 999 999 Question Answer Referral Priority Within 30 days (routine) Where should this appointment be scheduled? [facility] Reason for Visit * Reason Onset Date Comments Referral 12/05/2024 Prison, PT / OT and Home Health Aide. Fax 12/05/2024 Encounter Details Date Type Department Care Team (Late st Contact Info) Description 12/05/2024 Telephone [facility], Valarie Chaparromarce Singh [address] [phone] Chuy Batista MD [address] [place] [address] Referral (Prison, PT / OT and Merritt... Allergies Active [...] Tablet before bedtime. 5 Active Nystatin-Triamcin olone 349653-8.1 UNIT/GM-% External Ointment (Mycolog) Apply 1 Application [...] mRNA, LNP-s, No Pre serve, 2-Dose Series ([employer]) 05/30/2021,10/29/2020,10/08/2020 COVID-19, LNP-s, No Preserve , Prosper-sucrose, [...] encounter Miscellaneous Notes * Telephone Encounter - Beth Acosta OSA [...] Home Health Care for Pt to include [facility], PT / OT and Home Health Aide. [...] for this patient. They are interested in [facility] in [place] for Nursing, Aide PT, and OT Phone Number for them is [phone] Please advise documented in this encounter Plan of Treatment Upcoming Encounters Date Type Department Care Team (Late st Contact Info) Description 12/08/2024 1:00 PM EDT Cardiac Studies Cardiac Studies, [place] Amanda Ybarra [address] [phone] 01/03/2025 3:00 PM EDT Procedure Only Urology Miri Orozco [address] [place] [address] Willi Smith Jr., MD [address] [place] [address] 01/05/2025 11:30 AM EDT Imaging Radiology [address], [place] [address] [place] [phone] 01/10/2025 9:30 AM EDT Office Visit Hematology/Oncology [facility] [address] [place] [phone] Xavi Gramajo MD [address] [place] [address] 05/18/2025 11:00 AM EDT Office Visit Hematology/Oncology [facility] [place] [address] [place] [phone] Xavi Gramajo MD [address] [place] [address] 05/22/2025 10:45 AM EDT Procedure Only Urology, [facility] [address] [place] [phone] Valdemar Prado MD [address] [place] [address] Scheduled Referrals Name Type Priority Associated [...] Additional history exists CKD PHOS USE SMARTSET 11270 09/11/202408/17, 09/11/2023, 07/14/2021, Additional history exists Depression Screening 12/26/2024 12/27/2023 GFR 06/03/2025 12/02/2024, 11/14, 10/13/2024, Additional history exists CKD HGB USE SMARTSET 41680 12/02/202512/02, 12/01/2024, 12/01/2024, Additional history exists Pneumococcal [...] Power of Attor philipp? No Care Teams Manager Lighting Relationship Specialty Start Date End Date Chuy Batista MD [address] [address] PCP - General Family Medicine 09/14/24 documented as of this encounter
--- OUTSIDE RECORDS SUMMARY | 2024-12-19 09:40 | External Medical Summary | Summary of Care ---
Author Name Unknown Organization [facility] Address [address] [place] [address] Phone [phone] Care Team Providers Care Metabolic Specialist Name Role Phone Chuy Batista MD Primary Care Provider +1- [phone] Encounter Details Date Type Department Care Team (Late st Contact Info) Description 11/23/2024 11:20 AM EDT Telemedicine [facility] [address] [facility] [place] [address] Chuy Batista MD [address] [facility] [place] [id number] Recurrent UTI*; Primary adrenocortical insufficiency (HCC); Dementia without behavioral disturbance, psychotic disturbance, mood disturbance, or anxiety, unspecified dementia severity, unspecified dementia type (HCC); Chronic kidney disease, stage 3b (HCC); Pressure injury of sacral region, stage 2 (HCC); Prostate cancer (HCC); Urothelial carcinoma of bladder (HCC); Ambulatory dysfunction Allergies Active Allergy Reactions Criticality Noted Date Comments Chocolate Diarrhea 05/14/2023 Chocolate Flavoring Agent (Non-Screening) High 10/09/2023 Other Reaction(s): DIARRHEA/ Cannot take, interacts w/ medications. Clindamycin Hcl 09/24/2005 rash Cranberry 10/20/2023 Iodinated Contrast Media 10/01/2015 Ioversol Other (Please comment) High 08/10/[address] IV DYE Pembrolizumab High 10/10/2023 Other Reaction(s): myocarditis documented as of this encounter (statuses as of 12/12/2024) Medications Estelita Ellipta 200-62.5-25 MCG/ACT Aerosol Powder Breath Activated (Fluticasone-Ume clidinium-Vilant emily) Inhale 1 Puff by mouth every evening. 60 Blister Dosing Unit 11 023 Active EpiPen 2-Pedro 0.3 MG/0.3ML Injection Solution Auto-injectorInd ications:Anaphyl axis, sequela USE DIRECTED 1 Each 023 Active Multi Adult Gummies Oral Tablet Chewable [...] the morning. 30 Tablet 11 024 Active Magnesium Cl-Calcium Carbonate 71.5-119 MG Oral Tablet Delayed Release Take 64 mg by mouth in the morning and 64 mg before bedtime. 024 Active Hydrocortisone 10 MG Oral Tablet (Cortef)Indicati ons:Adrenal insufficiency (HCC) Take 20 mg in AM and 10 mg in afternoon 90 Tablet 5 024 Active Lactobacillus Probiotic Oral Tablet Take by [...] EVERY MORNING 90 Capsule 3 024 Active Vitamin D 125 MCG (5000 UT) Oral Capsule Take 1 capsule daily 30 Capsule 11 Active Mirabegron ER 25 MG Oral Tablet Extended Release 24 Hour (Myrbetriq) Take 1 Tablet by mouth in the morning. 30 Tablet 11 024 Active Solifenacin Succinate 5 MG Oral Tablet (VESIcare) Take 1 Tablet by mouth in the morning. 30 Tablet 6 025 Active Fluticasone Propionate 50 MCG/ACT Nasal Suspension (Flonase) Administer 2 Sprays into nostril in the morning. 16 mL 3 Active Eliquis 2.5 MG Oral Tablet Take 1 Tablet by mouth in the morning and 1 Tablet before bedtime. 025 Active Nystatin-Triamci nolone 611425-2.1 UNIT/GM-% External Ointment (Mycolog) Apply 1 Application topically to affected area in the morning and 1 Application before bedtime. 025 Active Syringe/Needle, Disp, 25G X 1-1/2" 3 ML MISC To use with injection of hydrocortisone if needed 2 Each 5 016 2024 Discontinued Breo Ellipta 200-25 MCG/ACT Inhalation Aerosol Powder Breath Activated (fluticasone furoate-vilanter ol) INHALE 1 PUFF BY MOUTH EVERY DAY 180 Each 3 024 2024 Discontinued [facility] Wound/Burn Dressing External GelIndications:P ressure injury of sacral region, stage 2 (HCC) Apply topically to affected area daily. Apply to pressure ulcer of buttocks. 88 mL 3 024 2024 Discontinued B Complex Oral Capsule Take 1 Capsule by mouth in the morning. 2024 Discontinued Fleet Enema 7-19 GM/118ML Rectal Enema Administer 1 Enema into the rectum as needed for Constipation. 2024 Discontinued Escitalopram Oxalate 5 MG Oral Tablet (Lexapro) Take 1 Tablet by mouth in the morning. 30 Tablet 5 024 2024 Discontinued Oseltamivir Phosphate 75 MG Oral Capsule (Tamiflu) Take 1 Capsule by mouth in the morning and 1 Capsule before bedtime. 025 2024 Discontinued Amoxicillin-Pot Clavulanate 875-125 MG Oral Tablet (Augmentin) Take 1 Tablet by mouth in the morning and 1 Tablet before bedtime. 025 2024 Discontinued documented as of this encounter (statuses as of 12/12/2024) Active Problems Problem Noted Date Diagnosed Date [...] as of this encounter (statuses as of 12/12/2024) Resolved Problems Problem Noted Date Diagnosed Date [...] as of this encounter (statuses as of 12/12/2024) Immunizations Name Administration Dates Next Due COVID-19 mRNA, LNP-s, No Pre serve, 2-Dose Series ([employer]) 05/30/2021,10/29/2020,10/08/2020 COVID-19, LNP-s, No Preserve , Prosper-sucrose, [...] No 12/01/2024 Are you (or your family) tk eless [...] Progress Notes * Chuy Batista MD - 11/23/2024 12:48 PM EDT Patient location: HOME. I was in a hospital or clinic location. After connecting through [employer],patient was verified with two unique identifiers. Patient (or authorized legal technical services representative) was then informed that this was a Telemedicine visit and being conducted confidentially over secure lines. Methods to assure confidentiality were taken. Patient acknowledged consent and understanding of pr ivacy and security of the Telemedicine visit. The patient agreed to participate. History of Present Illness concerns about blood in the patient's catheter. The caregiver suspects that the patient may have another UTI. The patient is currently receiving home health care and physical therapy, but the caregiver is considering switching to a different physical therapy provider once home health care ends. Thecaregiver also mentions that the patient has an upcoming appointment with a urologist. Assessment & Plan Complicated urinary tract infection He is at risk for recurrent UTIs due to a Devlin catheter and prior cancer therapies. Anticoagulation increases his bleeding risk. Clear urine suggests catheter trauma or irritation. Home health will collect a urine specimen for analysis, and the caregiver has been educated on proper urine collection techniques. Monitor for signs of bleeding and infection. Consider holding anticoagulation if bleeding persists. Venous insufficiency with leg ulcers Chronic venous insufficiency with leg ulcers is improving with antibiotics, and no cellulitis is present. Monitor ulcers for any signs of worsening. Utilize home health for wound management if necessary. Medication management Medications are well-managed, and a 90-day supply has been requested to reduce pharmacy visits. Convert all medications from the last hospitalization to a 90- day supply with refills and send to [facility] pharmacy. Follow-up He has an upcoming urology appointment on December 06. Coordination is needed between home health and physical therapy services. Coordinate with urology for catheter management and urine specimen collection. Discontinue home health services when appropriate to resume preferred physical therapy. Ensure communication with the provider for any changes in home health or physical therapy needs. 25 min with pt and chart review. Text in this note was generated using an ambient documentation service. I discussed the use of a device to record and summarize our discussion today. All persons present during the encounter consented to its use. Chuy Batista MD documented in this encounter Plan of Treatment Upcoming Encounters Date Type Department Care Team (Late st Contact Info) Description 01/03/2025 3:00 PM EDT Procedure Only Urology Miri Orozco [address] [place] [address] Willi Smith Jr., MD [address] [place] [address] 01/05/2025 11:30 AM EDT Imaging Radiology [address] [place] [phone] 01/10/2025 9:30 AM EDT Office Visit Hematology/Oncology [facility] [address] [place] [phone] Xavi Gramajo MD 200 [facility] [place] [address] 05/18/2025 11:00 AM EDT Office Visit Hematology/Oncology [facility] [address] [place] [address] Xavi Gramajo MD 200 [place] [address] 05/22/2025 10:45 AM EDT Procedure Only Urology, [facility] [address] [place] [phone] Valdemar Prado MD [address] [place] [address] Health Maintenance Due Date Last Done Comments Albumin/Creatinine Ratio 1963 DTap/Tdap Vaccines (1 - Tdap) 1964 Adult Wellness Visit 02/01/2020 01/31/2019 COVID-19 Vaccine ( season) 2024 07/22/2022, 07/22/2022, 02/11/2022, Additional history exists CKD PHOS USE SMARTSET 04785 09/11/202408/17, 09/11/2023, 07/14/2021, Additional history exists Depression Screening 12/26/2024 12/27/2023 GFR 06/03/2025 12/02/2024, 11/14, 10/13/2024, Additional history exists CKD HGB USE SMARTSET 40100 12/02/202512/02, 12/01/2024, 12/01/2024, Additional history exists Pneumococcal [...] as of this encounter Visit Diagnoses Diagnosis Recurrent UTI- Primary Urinary tract infection, site not specified Primary adrenocortical insufficiency (HCC) Glucocorticoid deficiency Dementia without behavioral disturbance, psychotic disturbance, mood disturbance, or anxiety, unspecified dementia severity, unspecified dementia type (HCC) Chronic kidney disease, stage 3b (HCC) Pressure injury of sacral region, stage 2 (HCC) Prostate cancer (HCC) Malignant neoplasm of prostate Urothelial carcinoma of bladder (HCC) Ambulatory dysfunction documented in this encounter Advance Directives * [...] Power of Attor philipp? No Care Teams Metabolic Specialist Relationship Specialty Start Date End Date Chuy Batista MD [address] [facility] [place] [address] PCP - General Family Medicine 09/14/24 documented as of this encounter
--- OUTSIDE RECORDS SUMMARY | 2024-12-19 09:40 | External Medical Summary | Summary of Care ---
Author Name Unknown Organization [facility] Address [address] [place] [address] Phone [phone] Care Team Providers Care Chiller Technician Name Role Phone Chuy Batista MD Primary Care Provider +1- [phone] Reason for Visit * Reason Comments Outpatient Testing Encounter Details Date Type Department Care Team (Late st Contact Info) Description 12/18/2024 1:40 PM EDT Laboratory Laboratory, [facility] [address] [facility] [place] [place] [phone] St, Specimen Drop Off [place] Jimenez 226 [facility] [place] [phone] Urinary tract infection* Allergies Active Allergy Reactions Criticality Noted Date Comments Chocolate Diarrhea 05/14/2023 Chocolate Flavoring Agent (Non-Screening) High 10/09/2023 Other Reaction(s): DIARRHEA/ Cannot take, interacts w/ medications. Clindamycin Hcl 09/24/2005 rash Cranberry 10/20/2023 Iodinated Contrast Media 10/01/2015 Ioversol Other (Please comment) High 08/10/[address] IV DYE Pembrolizumab High 10/10/2023 Other Reaction(s): myocarditis documented as of this encounter (statuses as of 12/18/2024) Medications Trelegy Ellipta 200-62.5-25 MCG/ACT Aerosol Powder [...] Tablet before bedtime. 5 Active Nystatin-Triamcin olone 623806-0.1 UNIT/GM-% External Ointment (Mycolog) Apply 1 Application topically to affected area in the morning and 1 Application before bedtime. 5 Active documented as of this encounter (statuses as of 12/18/2024) Active Problems Problem Noted Date Diagnosed Date [...] as of this encounter (statuses as of 12/18/2024) Resolved Problems Problem Noted Date Diagnosed Date [...] as of this encounter (statuses as of 12/18/2024) Immunizations Name Administration Dates Next Due COVID-19 mRNA, LNP-s, No Pre serve, 2-Dose Series ([employer]) 05/30/2021,10/29/2020,10/08/2020 COVID-19, LNP-s, No Preserve , Prosper-sucrose, [...] of Assessment Author No 12/01/2024 10:07 AM EDT Angie Vergara i, RN * Are you blind or do you have serious difficulty seeing, even when wearing glasses? Answer Date of Assessment Author No 12/01/2024 10:07 AM ESET Angie Vergara i, RN * Do you have serious difficulty walking or climbing stairs? (5 years old or older) Answer Date of Assessment Author Yes 12/01/2024 10:07 AM ESET Angie Vergara i, RN * Do you have difficulty dressing or bathing? (5 years old or older) Answer Date of Assessment Author No 12/01/2024 10:07 AM EDT Angie Vergara i, RN * Because of a physical, mental, or emotional condition, do you have difficulty doing errands alone such as visiting a doctor’s office or shopping? (15 years old or older) Answer Date of Assessment Author Yes 12/01/2024 10:07 AM EDT Angie Vergara i, RN documented as of this encounter Mental Status * Because of a physical, mental, or emotional condition, do you have serious difficulty concentrating, remembering, or making decisions? (5 years old or older) Answer Entry Date Author Yes 12/01/2024 10:07 AM EDT Angie Vergara i, RN documented in this encounter Plan of Treatment Upcoming Encounters Date Type Department Care Team (Late st Contact Info) Description 01/03/2025 3:00 PM EDT Procedure Only Urology Miri Orozco [address] [facility] [address] [address] Willi Smith Jr., MD [address] [place] [address] 01/05/2025 11:30 AM EDT Imaging Radiology [address] [place] [phone] 01/10/2025 9:30 AM EDT Office Visit Hematology/Oncology [facility] [address] [place] [phone] Xavi Gramajo MD [address] [place] [address] 05/18/2025 11:00 AM EDT Office Visit Hematology/Oncology [facility] [address] [place] [phone] Xavi Gramajo MD [address] [place] [address] 05/22/2025 10:45 AM EDT Procedure Only Urology, [facility] [address] [place] [address] Valdemar Prado MD [address] [place] [address] Pending Results Name Type Priority Associated Diagnoses Date /Time URINALYSIS, REFLEX TO MICROSCOPIC Lab Routine Urinary tract infection 12/18/2024 1:41 PM EDT CULTURE, URINE, QUANTITATIVE Lab Routine Urinary tract infection 12/18/2024 1:41 PM EDT Scheduled Orders Name Type Priority Associated Diagnoses Orde r Schedule URINALYSIS, REFLEX TO MICROSCOPIC Lab Routine Urinary tract infection Expected: 12/18/2024, Expires: 12/18/2025 CULTURE, URINE, QUANTITATIVE Lab Routine Urinary tract infection Expected: 12/18/2024, Expires: 12/18/2025 Health Maintenance Due Date Last Done Comments Albumin/Creatinine Ratio 1963 DTap/Tdap Vaccines (1 - Tdap) 1964 Adult Wellness Visit 02/01/2020 01/31/2019 COVID-19 Vaccine ( season) 2024 07/22/2022, 07/22/2022, 02/11/2022, Additional history exists CKD PHOS USE SMARTSET 52003 09/11/202408/17, 09/11/2023, 07/14/2021, Additional history exists Depression Screening 12/26/2024 12/27/2023 GFR 06/03/2025 12/02/2024, 11/14, 10/13/2024, Additional history exists CKD HGB USE SMARTSET 22300 12/02/202512/02, 12/01/2024, 12/01/2024, Additional history exists Pneumococcal [...] this encounter Visit Diagnoses Diagnosis Urinary tract infection- Primary Urinary tract infection, site not specified documented [...] Power of Attor philipp? No Care Teams Chiller Technician Relationship Specialty Start Date End Date Chuy Batista MD [address] [place] [address] PCP - General Family Medicine 09/14/24 documented as of this encounter
--- OUTSIDE RECORDS SUMMARY | 2024-12-19 09:40 | External Medical Summary | Summary of Care ---
Author Name Unknown Organization [facility] Address [address] [place] [address] Phone [phone] Care Team Providers Care Special Police Name Role Phone Chuy Batista MD Primary Care Provider +1- [phone] Reason for Visit * Reason Onset Date Comments FYI 12/18/2024 Encounter Details Date Type Department Care Team (Late st Contact Info) Description 12/18/2024 Telephone [facility] [facility] [place] [address] [facility] [place] [address] Chuy Batista MD [address] [place] [address] FYI Allergies Active Allergy Reactions Criticality Noted Date Comments Chocolate Diarrhea 05/14/2023 Chocolate Flavoring Agent (Non-Screening) High 10/09/2023 Other Reaction(s): DIARRHEA/ Cannot take, interacts w/ medications. Clindamycin Hcl 09/24/2005 rash Cranberry 10/20/2023 Iodinated Contrast Media 10/01/2015 Ioversol Other (Please comment) High 08/10/[address] IV DYE Pembrolizumab High 10/10/2023 Other Reaction(s): myocarditis documented as of this encounter (statuses as of 12/19/2024) Medications Trelegy Ellipta 200-62.5-25 MCG/ACT Aerosol Powder [...] Tablet before bedtime. 5 Active Nystatin-Triamcin olone 149743-3.1 UNIT/GM-% External Ointment (Mycolog) Apply 1 Application topically to affected area in the morning and 1 Application before bedtime. 5 Active documented as of this encounter (statuses as of 12/19/2024) Active Problems Problem Noted Date Diagnosed Date [...] as of this encounter (statuses as of 12/19/2024) Resolved Problems Problem Noted Date Diagnosed Date [...] as of this encounter (statuses as of 12/19/2024) Immunizations Name Administration Dates Next Due COVID-19 mRNA, LNP-s, No Pre serve, 2-Dose Series ([employer]) 05/30/2021,10/29/2020,10/08/2020 COVID-19, LNP-s, No Preserve , Prosper-sucrose, [...] Telephone Encounter - Shauna Mc LPN - 12/18/2024 4:07 PM EDT Urine tests are in process at this time * Telephone Encounter - Eulalia Rob OSA - 12/18/2024 12:49 PM EDT Reason for patient's call: Romelia from [employer] calling with a message for Dr Batista Pt is having increased confusion and pt urine has a foul smell to it Romelia will be dropping off the U/A please place the order for this documented in this encounter Plan of Treatment Upcoming Encounters Date Type Department Care Team (Late st Contact Info) Description 01/03/2025 3:00 PM EDT Procedure Only Urology Miri Orozco [address] [address] [place] [address] Willi Smith Jr., MD [address] [place] [address] 01/05/2025 11:30 AM EDT Imaging Radiology [address], [place] [address] [place] [phone] 01/10/2025 9:30 AM EDT Office Visit Hematology/Oncology [facility] [address] [place] [phone] Xavi Gramajo MD [address] [place] [address] 05/18/2025 11:00 AM EDT Office Visit Hematology/Oncology [facility] [address] [place] [address] Xavi Gramajo MD 200 [facility] [place] [address] 05/22/2025 10:45 AM EDT Procedure Only Urology, [facility] [address] [place] [phone] Valdemar Prado MD [address] [place] [address] Health Maintenance Due Date Last Done Comments Albumin/Creatinine Ratio 1963 DTap/Tdap Vaccines (1 - Tdap) 1964 Adult Wellness Visit 02/01/2020 01/31/2019 COVID-19 Vaccine ( season) 2024 07/22/2022, 07/22/2022, 02/11/2022, Additional history exists CKD PHOS USE SMARTSET 74731 09/11/202408/17, 09/11/2023, 07/14/2021, Additional history exists Depression Screening 12/26/2024 12/27/2023 GFR 06/03/2025 12/02/2024, 11/14, 10/13/2024, Additional history exists CKD HGB USE SMARTSET 35422 12/02/202512/02, 12/01/2024, 12/01/2024, Additional history exists Pneumococcal [...] Power of Attor philipp? No Care Teams Special Police Relationship Specialty Start Date End Date Chuy Batista MD [address] [place] [address] PCP - General Family Medicine 09/14/24 documented as of this encounter
--- OUTSIDE RECORDS SUMMARY | 2024-12-19 09:40 | External Medical Summary | Summary of Care ---
Author Name Unknown Organization [facility] Address [address] [place] [address] Phone [phone] Care Team Providers Care Warehouse Trainer Name Role Phone Chuy Batista MD Primary Care Provider +1- [phone] Reason for Referral * Evaluate & Treat - Unlimited Visits (Within 10 days (routine)) - Authorized Specialty Diagnoses / Procedures Referred By Contac t Referred To Contact HOME CARE / Home Care Diagnoses Indwelling Devlin catheter present Recurrent UTI Dementia without behavioral disturbance, psychotic disturbance, mood disturbance, or anxiety, unspecified dementia severity, unspecified dementia type (HCC) Chuy Batista MD [address] [facility] [place] [address] Phone: tel: fax: Referral ID Status Reason Start Date Expiration Date Visits Requested Visits Authorized [id number] Authorized Specialty Services Required 12/07/2024 999 999 Question Answer Referral Priority Within 10 days (routine) Where should this appointment be scheduled? Radha Comments Documentation of Qexx-iq-Wrsz Encounter Addendum Patient Name: Branden High I certify that this patient is under my care and that I, or a nurse practitioner or physician's assistant accounting manager working with me, had a gewq-jx-xnfp encounter that meets the physician icnj-ia-ktuy encounter requirements with this patient on: The encounter with the patient was in whole, or in part, for the following medical condition, which is the primary reason for home health care (List medical condition): Dementia with mild cognitive impairment I certify that, based on my findings, the following services are medically necessary home health services: Nursing, Physical Therapy, Occupational Therapy, and CIRCUS LABORER To provide the following care/treatments: (All hospitalists [...] effort and are for medical reasons or taoist services or infrequently or of short duration [...] anxiety, unspecified dementia severity, unspecified dementia type ([facility]) Chuy Batista MD [address] [place] [address] Phone: tel: fax: Referral ID Status Reason Start Date Expiration Date Visits Requested Visits Authorized [id number] Authorized Specialty Services Required 12/05/2024 999 999 Question Answer Referral Priority Within 30 days (routine) Where should this appointment be scheduled? [facility] Reason for Visit * Reason Onset Date Comments Referral 12/05/2024 Longterm, PT / OT and Home Health Aide. Fax 12/05/2024 Encounter Details Date Type Department Care Team (Late st Contact Info) Description 12/05/2024 Telephone [facility], [place] Singh [address] [address] Chuy Batista MD [address] [place] [address] Referral (Longterm, PT / OT and [place]... Allergies Active [...] Tablet before bedtime. 5 Active Nystatin-Triamcin olone 616491-9.1 UNIT/GM-% External Ointment (Mycolog) Apply 1 Application [...] mRNA, LNP-s, No Pre serve, 2-Dose Series ([employer]) 05/30/2021,10/29/2020,10/08/2020 COVID-19, LNP-s, No Preserve , Prosper-sucrose, [...] Home Health Care for Pt to include Longterm, PT / OT and Home Health Aide. [...] for this patient. They are interested in [facility] in [address] for Nursing, Aide PT, and OT Phone Number for them is [phone] Please advise documented in this encounter Plan of Treatment Upcoming Encounters Date Type Department Care Team (Late st Contact Info) Description 12/08/2024 1:00 PM EDT Cardiac Studies Cardiac Studies, [address] Amanda Ybarra [address] [phone] 01/03/2025 3:00 PM EDT Procedure Only Urology Miri Orozco [address] [address] Willi Smith Jr., MD [address] [place] [address] 01/05/2025 11:30 AM EDT Imaging Radiology [address], [place] [address] [place] [phone] 01/10/2025 9:30 AM EDT Office Visit Hematology/Oncology [facility] [address] [place] [address] Xavi Gramajo MD [address] [place] [address] 05/18/2025 11:00 AM EDT Office Visit Hematology/Oncology [facility] [place] [address] [place] [address] Xavi Gramajo MD [address] [place] [address] 05/22/2025 10:45 AM EDT Procedure Only Urology, [facility] [address] [place] [address] Valdemar Prado [...] Additional history exists CKD PHOS USE SMARTSET 10066 09/11/202408/17, 09/11/2023, 07/14/2021, Additional history exists Depression Screening 12/26/2024 12/27/2023 GFR 06/03/2025 12/02/2024, 11/14, 10/13/2024, Additional history exists CKD HGB USE SMARTSET 64895 12/02/202512/02, 12/01/2024, 12/01/2024, Additional history exists Pneumococcal [...] Power of Attor philipp? No Care Teams Warehouse Trainer Relationship Specialty Start Date End Date Chuy Batista MD [address] [address] PCP - General Family Medicine 09/14/24 documented as of this encounter
--- OUTSIDE RECORDS SUMMARY | 2024-12-19 09:40 | External Medical Summary ---
Author Name Unknown Address Unknown Organization K01:[facility] [place] [place] - [address] [facility] [address] Laboratory Report Ordering Provider Test Date Status RAY BARRETTMAYELA 12/18/2024 13:41:14 Final Observation Date Value Abnormality Reference (Units ) Status Color of Urine by Auto 12/18/2024 13:41:14 Yellow Colorless, Light Yellow, Yellow, Dark Yellow Final Clarity, Urine 12/18/2024 13:41:14 Cloudy Abnormal Clear Final Glucose [Mass/volume] in Urine by Automated test strip 12/18/2024 13:41:14 Negative Negative (mg/dL) Final Bilirubin.total [Presence] in Urine by Automated test strip 12/18/2024 13:41:14 Negative Negative Final Ketones [Mass/volume] in Urine by Automated test strip 12/18/2024 13:41:14 Negative Negative (mg/dL) Final Specific gravity, Urine 12/18/2024 13:41:14 1.016 1.003-1.030 Final Hemoglobin [Presence] in Urine by Automated test strip 12/18/2024 13:41:14 Large Abnormal Negative Final pH, Urine 12/18/2024 13:41:14 6.5 5.0-7.5 (Units) Final Protein [Mass/volume] in Urine by Automated test strip 12/18/2024 13:41:14 100 Abnormal Negative (mg/dL) Final Urobilinogen [Mass/volume] in Urine by Automated test strip 12/18/2024 13:41:14 Normal Normal (mg/dL) Final Nitrite [Presence] in Urine by Automated test strip 12/18/2024 13:41:14 Negative Negative Final Leukocyte esterase [Presence] in Urine by Automated test strip 12/18/2024 13:41:14 Large Abnormal Negative Final RBC, Urine 12/18/2024 13:41:14 50+ Abnormal 0-2 (/HPF) Final WBC, Urine 12/18/2024 13:41:14 50+ Abnormal 0-2 (/HPF) Final Bacteria [#/area] in Urine sediment by Microscopy high power field 12/18/2024 13:41:14 151-200 Abnormal 0-25 (/HPF) Final Leukocyte clumps [#/area] in Urine sediment by Microscopy high power field 12/18/2024 13:41:14 Present Abnormal None (/HPF) Final Performing Location [facility] [place] [place] - [address] [place], [place] [address]
--- OUTSIDE RECORDS SUMMARY | 2024-12-19 09:41 | External Medical Summary | Summary of Care ---
Author Name Unknown Organization [facility] Address [address] [place] [facility] [place] [address] Phone [phone] Care Team Providers Care Broommaking Supervisor Name Role Phone Arnold Willis MD Primary Care Provider +1- [phone] Reason for Visit * Reason Onset Date Comments Hospital Follow-Up 12/02/2024 Advice 12/02/2024 Encounter Created in Error 12/02/2024 Encounter Details Date Type Department Care Team (Late st Contact Info) Description 12/02/2024 Telephone [facility] [address] [place] [address] Arnold Willis MD [address] [facility] [place] [address] Hospital Follow-Up; Advice; Encounter Crea... Allergies Active Allergy Reactions Criticality Noted Date Comments Chocolate Diarrhea 05/14/2023 Chocolate Flavoring Agent (Non-Screening) High 10/09/2023 Other Reaction(s): DIARRHEA/ Cannot take, interacts w/ medications. Clindamycin Hcl 09/24/2005 rash Cranberry 10/20/2023 Iodinated Contrast Media 10/01/2015 Ioversol Other (Please comment) High 08/10/[address] IV DYE Pembrolizumab High 10/10/2023 Other Reaction(s): myocarditis documented as of this encounter (statuses as of 12/06/2024) Medications Estelita Ellipta 200-62.5-25 MCG/ACT Aerosol Powder [...] Tablet before bedtime. 5 Active Nystatin-Triamcin olone 660464-1.1 UNIT/GM-% External Ointment (Mycolog) Apply 1 Application topically to affected area in the morning and 1 Application before bedtime. 5 Active Linezolid 600 MG Oral Tablet (Zyvox) Take 1 Tablet by mouth in the morning and 1 Tablet before bedtime. Do all this for 6 days. 12 Tablet 5 025 Active documented as of this encounter (statuses as of 12/06/2024) Active Problems Problem Noted Date Diagnosed Date [...] as of this encounter (statuses as of 12/06/2024) Resolved Problems Problem Noted Date Diagnosed Date [...] as of this encounter (statuses as of 12/06/2024) Immunizations Name Administration Dates Next Due COVID-19 mRNA, LNP-s, No Pre serve, 2-Dose Series ([employer]) 05/30/2021,10/29/2020,10/08/2020 COVID-19, LNP-s, No Preserve , Prosper-sucrose, [...] No 12/27/2023 Does the household have a [facility] source of income? (Household - for ages [...] AM ESET Angie Vergara i, RN * Are you [...] Entry Date Author Yes 12/01/2024 10:07 AM Angie Sears i, RN documented in this encounter Miscellaneous Notes * Telephone Encounter - Ania Neal OSA - 12/06/2024 12:07 PM EDT Spoke to patient's , Verna, and she stated that they were waiting for their video visit for over 2 hours yesterday Then they got a call stating that Dr. Willis will be calling them and he never did. Patient's is upset and says that Branden needs Home Health and they want [facility]. She is requesting the order be placed as she is very upset that she did not get a phone call yesterday like she was promised. Patient's , Verna, is very frustrated as I gather from the phone call is too much going on withpatient for her to handle by herself and this is why she is requesting home health. I let her know that patient may need face to face for HH referral but I wasn't sure. Please advise. Thank you. * Telephone Encounter - Earline Guajardo OSA - 12/02/2024 8:22 PM EDT Patient Name: BRANDEN HIGH([id number]) Sex: Male : 1945 PCP: ARNOLD WILLIS Center: [facility] Types of orders made on 12/02/2024: IP Post Discharge , Lab, Medications Order Date:12/02/2024 Ordering User:OLIVIER LEVI [[id number]] Attending Provider:Taurus Funes DO [[id number]] Authorizing Provider: Olivier Levi MD [[id number]] Department:[address] [place] [address][[id number]] Order Specific Information Order: RETURN APPT [CUSTOM: [id number]] Order #: [id number]: [id number] Priority: Routine Class: Nursing Unit Department (Single Entry) -> Family Practice Appt Needed Within: (Specify # of Days, Weeks, Months) -> 1 Wk Released on: 12/02/2024 11:26 AM Priority: Routine Class: Nursing Unit Department (Single Entry) -> Family Practice Appt Needed Within: (Specify # of Days, Weeks, Months) -> 1 Wk Released on: 12/02/2024 11:26 AM documented in this encounter Plan of Treatment Upcoming Encounters Date Type Department Care Team (Late st Contact Info) Description 12/08/2024 1:00 PM EDT Cardiac Studies Cardiac Studies, [place] [address] [phone] 01/03/2025 3:00 PM EDT Procedure Only Urology Miri Orozco [address] [address] Luis Hart, Willi Garg MD [address] [place] [address] 01/05/2025 11:30 AM EDT Imaging Radiology [address], [place] [address] [place] [address] 01/10/2025 9:30 AM EDT Office Visit Hematology/Oncology [facility] [address] [place] [address] Xavi Gramajo MD [address] [place] [address] 05/18/2025 11:00 AM EDT Office Visit Hematology/Oncology [facility] [place] [address] [place] [address] Xavi Gramajo MD [address] [place] [address] 05/22/2025 10:45 AM EDT Procedure Only Urology, [facility] [address] [place] [phone] Valdemar Prado MD [address] [place] [address] Health Maintenance Due Date Last Done Comments Albumin/Creatinine Ratio 1963 DTap/Tdap Vaccines (1 - Tdap) 1964 Adult Wellness Visit 02/01/2020 01/31/2019 COVID-19 Vaccine ( season) 2024 07/22/2022, 07/22/2022, 02/11/2022, Additional history exists CKD PHOS USE SMARTSET 19878 09/11/202408/17, 09/11/2023, 07/14/2021, Additional history exists Depression Screening 12/26/2024 12/27/2023 GFR 06/03/2025 12/02/2024, 11/14, 10/13/2024, Additional history exists CKD HGB USE SMARTSET 36736 12/02/202512/02, 12/01/2024, 12/01/2024, Additional history exists Pneumococcal [...] Power of Attor philipp? No Care Teams Broommaking Supervisor Relationship Specialty Start Date End Date Arnold Willis MD [address] [address] PCP - General Family Medicine 09/14/24 documented as of this encounter
--- OUTSIDE RECORDS SUMMARY | 2024-12-19 09:41 | External Medical Summary | Summary of Care ---
Author Name Unknown Organization [facility] Address [address] [place] [address] Phone [phone] Care Team Providers Care Office Machine Technician Name Role Phone Chuy Batista MD Primary Care Provider +1- [phone] Reason for Visit * Reason Onset Date Comments Appointment 11/30/2024 Encounter Details Date Type Department Care Team (Late st Contact Info) Description 11/30/2024 Telephone Urology, [facility] [address] [place] [address] Services, Scheduling [address] [place] [address] Appointment Allergies Active Allergy Reactions Criticality Noted Date Comments Chocolate Diarrhea 05/14/2023 Chocolate Flavoring Agent (Non-Screening) High 10/09/2023 Other Reaction(s): DIARRHEA/ Cannot take, interacts w/ medications. Clindamycin Hcl 09/24/2005 rash Cranberry 10/20/2023 Iodinated Contrast Media 10/01/2015 Ioversol Other (Please comment) High 08/10/[address] IV DYE Pembrolizumab High 10/10/2023 Other Reaction(s): myocarditis documented as of this encounter (statuses as of 12/04/2024) Medications Trelegy Ellipta 200-62.5-25 MCG/ACT Aerosol Powder Breath Activated (Fluticasone-Ume clidinium-Vilant emily) Inhale 1 Puff by mouth every evening. 60 Blister Dosing Unit 11 023 Active EpiPen 2-Pedro 0.3 MG/0.3ML Injection Solution Auto-injectorInd ications:Anaphyl axis, sequela USE DIRECTED 1 Each Active Multi Adult Gummies Oral Tablet Chewable [...] mg in afternoon 90 Tablet 5 Active Lactobacillus Probiotic Oral Tablet Take by [...] Take 1 capsule daily 30 Capsule 11 024 Active Mirabegron ER 25 MG Oral Tablet Extended Release 24 Hour (Myrbetriq) Take 1 Tablet by mouth in the morning. 30 Tablet 11 024 Active Solifenacin Succinate 5 MG Oral Tablet (VESIcare) Take 1 Tablet by mouth in the morning. 30 Tablet 6 Active Fluticasone Propionate 50 MCG/ACT Nasal Suspension (Flonase) Administer 2 Sprays into nostril in the morning. 16 mL 3 Active Eliquis 2.5 MG Oral Tablet Take 1 Tablet by mouth in the morning and 1 Tablet before bedtime. 025 Active Nystatin-Triamci nolone 404417-7.1 UNIT/GM-% External Ointment (Mycolog) Apply 1 Application [...] DAY 180 Each 3 024 2024 Discontinued [facility] Wound/Burn Dressing External GelIndications:P ressure injury [...] 1 Tablet before bedtime. 025 2024 Discontinued Nitrofurantoin Monohyd Macro 100 MG Oral Capsule (Macrobid)Indica tions:Enterococc us UTI Take 1 Capsule by mouth in the morning and 1 Capsule before bedtime. Do all this for 7 days. With food until gone. 14 Capsule 025 2024 Discontinued documented as of this encounter (statuses as of 12/04/2024) Active Problems Problem Noted Date Diagnosed Date [...] as of this encounter (statuses as of 12/04/2024) Resolved Problems Problem Noted Date Diagnosed Date [...] as of this encounter (statuses as of 12/04/2024) Immunizations Name Administration Dates Next Due COVID-19 mRNA, LNP-s, No Pre serve, 2-Dose Series ([employer]) 05/30/2021,10/29/2020,10/08/2020 COVID-19, LNP-s, No Preserve , Prosper-sucrose, [...] Telephone Encounter - Kate Chakraborty LPN - 12/04/2024 8:04 AM EDT Separate encounter per Jimena "Okay to cancel upcoming catheter change appointment with nursing as patient is currently admitted.Please schedule patient for hospital discharge follow up in 2-3 months at [facility] with Dr. Prado or can follow up in December in [place] if patient/ wish. Please change May appointment to cystoscopy. Thanks!" * Telephone Encounter - Kate Chakraborty LPN - 12/04/2024 8:01 AM EDT Patient is currently scheduled for next available -appointment already in place for May. Per Jimena, appointment to be changed to cystoscopy, please make this OV/cystoscopy for 30 minutes no overbook. Sending to provider to make aware and ensure he is agreeable to May appointment as cystoscopy. Kate Delgado LPN * Telephone Encounter - Vitaliy Almendarez OSA - 12/01/2024 10:37 AM EDT Patient has nurse visit on December 06 at [facility]. fyi * Telephone Encounter - Erma Crespo LPN - 12/01/2024 8:56 AM EDT Patient currently admitted to [facility]; if they do no wish to travel to [place] they can be scheduled for next available with Dr. Prado in [facility]. * Telephone Encounter - Angie Corea OSA - 11/30/2024 4:26 PM EDT Pt requesting that pt has a cytoscopy done by Dr Prado at [facility]. He is scheduled with Dr Smith at [place] on 01/03/25. Please advise on this. documented in this encounter Plan of Treatment Upcoming Encounters Date Type Department Care Team (Late st Contact Info) Description 12/05/2024 11:00 AM EDT Office Visit Family [facility], [place] [address] [phone] Chuy Batista MD [address] [place] [address] 12/08/2024 1:00 PM EDT Cardiac Studies Cardiac Studies, [place] [address] [phone] 01/03/2025 3:00 PM EDT Procedure Only Urology Miri Orozco [address] [address] Willi Smith Jr., MD [address] [address] 01/05/2025 11:30 AM EDT Imaging Radiology [facility] 1st [facility] [address] [place] [phone] 01/10/2025 9:30 AM EDT Office Visit Hematology/Oncology [facility] [address] [place] [phone] Xavi Gramajo MD [address] [place] [address] 05/22/2025 10:45 AM EDT Procedure Only Urology, [facility] [address] [place] [phone] Valdemar Prado MD [address] [place] [address] Health Maintenance Due Date Last Done Comments Albumin/Creatinine Ratio 1963 DTap/Tdap Vaccines (1 - Tdap) 1964 Adult Wellness Visit 02/01/2020 01/31/2019 COVID-19 Vaccine ( - season) 2024 07/22/2022, 07/22/2022, 02/11/2022, Additional history exists CKD PHOS USE SMARTSET 35930 09/11/202408/17, 09/11/2023, 07/14/2021, Additional history exists Depression Screening 12/26/2024 12/27/2023 GFR 06/03/2025 12/02/2024, 11/14, 10/13/2024, Additional history exists CKD HGB USE SMARTSET 25174 12/02/202512/02, 12/01/2024, 12/01/2024, Additional history exists Pneumococcal [...] Infection Onset Date Last Indicated Resolved Time Respiratory Rule-Out 12/01/2024 12/01/2024 025 6:16 AM EDT COVID-19 Rule-Out 12/01/2024 12/01/2024 12/01/2024 6:16 AM EDT documented as of this encounter Advance Directives * [...] Power of Attor philipp? No Care Teams Office Machine Technician Relationship Specialty Start Date End Date Chuy Batista MD [address] [address] PCP - General Family Medicine 09/14/24 documented as of this encounter
--- OUTSIDE RECORDS SUMMARY | 2024-12-19 09:41 | External Medical Summary | Summary of Care ---
Author Name Unknown Organization [facility] Address [address] [place] [facility] [place] [address] Phone [phone] Care Team Providers Care Senior Technical Trainer Name Role Phone Arnold Willis MD Primary Care Provider +1- [phone] Reason for Visit * Reason Onset Date Comments Hospital Follow-Up 12/02/2024 Advice 12/02/2024 Encounter Created in Error 12/02/2024 Encounter Details Date Type Department Care Team (Late st Contact Info) Description 12/02/2024 Telephone [facility] [address] [place] [address] Arnold Willis MD [address] [facility] [place] [address] Hospital Follow-Up; Advice; Encounter Crea... Allergies [...] Tablet before bedtime. 5 Active Nystatin-Triamcin olone 573588-3.1 UNIT/GM-% External Ointment (Mycolog) Apply 1 Application [...] mRNA, LNP-s, No Pre serve, 2-Dose Series ([employer]) 05/30/2021,10/29/2020,10/08/2020 COVID-19, LNP-s, No Preserve , Prosper-sucrose, [...] No 12/27/2023 Does the household have a [facility] source of income? (Household - for [...] Branden needs Home Health and they want [facility]. She is requesting the order be [...] 12/02/2024 8:22 PM EDT Patient Name: BRANDEN HIGH([id number]) Sex: Male : 1945 PCP: ARNOLD WILLIS Center: [facility] Types of orders made on 12/02/2024: IP Post Discharge , Lab, Medications Order Date:12/02/2024 Ordering User:OLIVIER LEVI [[id number]] Attending Provider:Taurus Funes DO [[id number]] Authorizing Provider: Olivier Levi MD [[id number]] Department:[address] [place] [address][[id number]] Order Specific Information Order: RETURN APPT [CUSTOM: [id number]] Order #: [id number] Priority: Routine Class: Nursing Unit Department [...] [address] [phone] 01/03/2025 3:00 PM EDT Procedure Only Urology Miri Orozco [address] [address] Luis Hart, Willi Garg MD [address] [place] [address] 01/05/2025 11:30 AM EDT Imaging Radiology [address], [place] [address] [place] [address] 01/10/2025 9:30 AM EDT Office Visit Hematology/Oncology [facility] [address] [place] [address] Xavi Gramajo MD [address] [place] [address] 05/18/2025 11:00 AM EDT Office Visit Hematology/Oncology [facility] [place] [address] [place] [address] Xavi Gramajo MD [address] [place] [address] 05/22/2025 10:45 AM EDT Procedure Only Urology, [facility] [address] [place] [phone] Valdemar Prado MD [address] [place] [address] Health Maintenance Due Date Last Done Comments Albumin/Creatinine Ratio 1963 DTap/Tdap Vaccines (1 - Tdap) 1964 Adult Wellness Visit 02/01/2020 01/31/2019 COVID-19 Vaccine ( season) 2024 07/22/2022, 07/22/2022, 02/11/2022, Additional history exists CKD PHOS USE SMARTSET 67119 09/11/202408/17, 09/11/2023, 07/14/2021, Additional history exists Depression Screening 12/26/2024 12/27/2023 GFR 06/03/2025 12/02/2024, 11/14, 10/13/2024, Additional history exists CKD HGB USE SMARTSET 60436 12/02/202512/02, 12/01/2024, 12/01/2024, Additional history exists Pneumococcal [...] Power of Attor philipp? No Care Teams Senior Technical Trainer Relationship Specialty Start Date End Date Arnold Willis MD [address] [address] PCP - General Family Medicine 09/14/24 documented as of this encounter
--- OUTSIDE RECORDS SUMMARY | 2024-12-19 09:41 | External Medical Summary | Summary of Care ---
Author Name Unknown Organization [facility] Address [address] [place] [address] Phone [phone] Care Team Providers Care Cooker Pie Filling Name Role Phone Arnold Willis MD Primary Care Provider +1- [phone] Reason for Visit * Reason Onset Date Comments Hospital Follow-Up 12/02/2024 Advice 12/02/2024 Encounter Created in Error 12/02/2024 Encounter Details Date Type Department Care Team (Late st Contact Info) Description 12/02/[address] [facility] [address] [place] [address] Arnold Willis MD [address] [place] [address] Hospital Follow-Up; Advice; Encounter Crea... Allergies [...] this encounter (statuses as of 12/04/2024) Medications Estelita Ellipta 200-62.5-25 MCG/ACT Aerosol Powder [...] Tablet before bedtime. 5 Active Nystatin-Triamcin olone 446611-9.1 UNIT/GM-% External Ointment (Mycolog) Apply 1 Application [...] mRNA, LNP-s, No Pre serve, 2-Dose Series (MuteButton) 05/30/2021,10/29/2020,10/08/2020 COVID-19, LNP-s, No Preserve , Prosper-sucrose, [...] No 12/27/2023 Does the household have a [place] source of income? (Household - for ages [...] encounter Miscellaneous Notes * Telephone Encounter - Earline Guajardo OSA - 12/02/2024 8:22 PM EDT Patient Name: BRADNEN HIGH([id number]) Sex: Male : 1945 PCP: ARNOLD WILLIS Center: [facility] [place] Types of orders made on 12/02/2024: IP Post Discharge , Lab, Medications Order Date:12/02/2024 Ordering User:OLIVIER LEVI [[id number]] Attending Provider:Taurus Funes DO [[id number]] Authorizing Provider: Olivier Levi MD [[id number]] Department:3B IP [facility][[id number]] Order Specific Information Order: RETURN APPT [CUSTOM: [id number]] Order #: [id number]: 1 Priority: Routine Class: Nursing Unit Department [...] Contact Info) Description 12/05/2024 11:00 AM EDT Tele[facility] [place] [address] [phone] Arnold Willis MD [address] [place] [address] 12/08/2024 1:00 PM EDT Cardiac Studies Cardiac Studies, [place] Amanda Ybarra [address] [phone] 01/03/2025 3:00 PM EDT Procedure Only Urology Miri Orozco [address] [place] [address] [place] [address] Willi Smith Jr., MD [address] [place] [id number] 01/05/2025 11:30 AM EDT Imaging Radiology [address] [place] [phone] 01/10/2025 9:30 AM EDT Office Visit Hematology/Oncology [facility] [address] [place] [phone] Xavi Gramajo MD [address] [place] [address] 05/22/2025 10:45 AM EDT Procedure Only Urology, [facility] [address] [place] [phone] Valdemar Prado MD [address] [place] [address] Health Maintenance Due Date Last Done Comments Albumin/Creatinine Ratio 1963 DTap/Tdap Vaccines (1 - Tdap) 1964 Adult Wellness Visit 02/01/2020 01/31/2019 COVID-19 Vaccine ( season) 2024 07/22/2022, 07/22/2022, 02/11/2022, Additional history exists CKD PHOS USE SMARTSET 03266 09/11/202408/17, 09/11/2023, 07/14/2021, Additional history exists Depression Screening 12/26/2024 12/27/2023 GFR 06/03/2025 12/02/2024, 11/14, 10/13/2024, Additional history exists CKD HGB USE SMARTSET 91549 12/02/202512/02, 12/01/2024, 12/01/2024, Additional history exists Pneumococcal [...] Power of Attor philipp? No Care Teams Cooker Pie Filling Relationship Specialty Start Date End Date Arnold Willis MD [address] [address] PCP - General Family Medicine 09/14/24 documented as of this encounter
--- OUTSIDE RECORDS SUMMARY | 2024-12-19 09:41 | External Medical Summary | Summary of Care ---
Author Name Unknown Organization [facility] Address [address] [place] [address] Phone [phone] Care Team Providers Care Veneer Stacker Name Role Phone Chuy Batista MD Primary Care Provider +1- [phone] Reason for Visit * Reason Onset Date Comments Appointment 11/30/2024 Encounter Details Date Type Department Care Team (Late st Contact Info) Description 11/30/2024 Telephone Urology, [facility] [address] [place] [address] Services, Scheduling [address] [place] [address] Appointment Allergies Active Allergy Reactions Criticality Noted Date Comments Chocolate Diarrhea 05/14/2023 Chocolate Flavoring Agent (Non-Screening) High 10/09/2023 Other Reaction(s): DIARRHEA/ Cannot take, interacts w/ medications. Clindamycin Hcl 09/24/2005 rash Cranberry 10/20/2023 Iodinated Contrast Media 10/01/2015 Ioversol Other (Please comment) High 08/10/[address] IV DYE Pembrolizumab High 10/10/2023 Other Reaction(s): myocarditis documented as of this encounter (statuses as of 12/06/2024) Medications Trelegy Ellipta 200-62.5-25 MCG/ACT Aerosol Powder [...] Tablet before bedtime. 025 Active Nystatin-Triamci nolone 936340-7.1 UNIT/GM-% External Ointment (Mycolog) Apply 1 Application [...] DAY 180 Each 3 024 2024 Discontinued [facility] Wound/Burn Dressing External GelIndications:P [...] mRNA, LNP-s, No Pre serve, 2-Dose Series (Co.Import) 05/30/2021,10/29/2020,10/08/2020 COVID-19, LNP-s, No Preserve , Prosper-sucrose, [...] encounter Miscellaneous Notes * Telephone Encounter - Geovani, Hanna G, DEAN OF EDUCATION - 12/06/2024 10:[address] Prado, sent as FYI unless you have other recommendations at this time. Patient and spouse came to clinic for nurse visit. Visit had been cancelled since catheter was changed during recent admission. I spoke with the patient and spouse in an exam room. Catheter bag was changed as tubing was kinking. inquiring about home health referral placed by PCP's office. Advised that HH referral wasplaced yesterday, and PCP's office should be in touch regarding regerral and rescheduling yesterday's missed appointment. requesting order for overnight bags and stickers in case they are needed. Will have Dr Prado sign order and fax to 180. Patient's spouse aware that 180 will reach out to them directly. requesting sooner cysto at [facility]. Advised that patient is on wait list for a cancellation, but they should keep May appt in [place] as scheduled if they aren't able to get in here sooner. agrees to go to [place] if necessary. Thank you Yolie * Telephone Encounter - Kate Chakraborty LPN - 12/04/2024 8:04 AM EDT Separate encounter per Jimena "Okay to cancel upcoming catheter change appointment with nursing as patient is currently admitted.Please schedule patient for hospital discharge follow up in 2-3 months at [facility] with Dr. Prado or can follow up in December in [place] if patient/ wish. Please change May appointment [...] aware and ensure he is agreeable to October appointment as cystoscopy. Kate Delgado LPN * Telephone Encounter - Vitaliy Almendarez OSA - 12/01/2024 10:37 AM EDT Patient has nurse visit on December 06 at [facility]. fyi * Telephone Encounter - Erma Crespo LPN - 12/01/2024 8:56 AM EDT Patient currently admitted to [facility]; if they do no wish to travel to [place] they can be scheduled for next available with Dr. Prado in [facility]. * Telephone Encounter - Angie Corea OSA - 11/30/2024 4:26 PM EDT Pt requesting that pt has a cytoscopy done by Dr Prado at [facility]. He is scheduled with Dr Smith at [place] on 01/03/25. Please advise on this. documented in this encounter Plan of Treatment Upcoming Encounters Date Type Department Care Team (Late st Contact Info) Description 12/08/2024 1:00 PM EDT Cardiac Studies Cardiac Studies, [place] Ybarra [address] [phone] 01/03/2025 3:00 PM EDT Procedure Only Urology Miri Orozco [address] [place] [address] [place] [place] [address] Willi Smith Jr., MD [address] [place] [address] 01/05/2025 11:30 AM EDT Imaging Radiology [facility] [address] [facility] [address] [place] [phone] 01/10/2025 9:30 AM EDT Office Visit Hematology/Oncology [facility] [address] [facility] [phone] Xavi Gramajo MD [address] [facility] [place] [address] 05/22/2025 10:45 AM EDT Procedure Only Urology, [facility] [address] [place] [phone] Valdemar Prado MD [address] [place] [address] Health Maintenance Due Date Last Done Comments Albumin/Creatinine Ratio 1963 DTap/Tdap Vaccines (1 - Tdap) 1964 Adult Wellness Visit 02/01/2020 01/31/2019 COVID-19 Vaccine ( season) 2024 07/22/2022, 07/22/2022, 02/11/2022, Additional history exists CKD PHOS USE SMARTSET 23233 09/11/202408/17, 09/11/2023, 07/14/2021, Additional history exists Depression Screening 12/26/2024 12/27/2023 GFR 06/03/2025 12/02/2024, 11/14, 10/13/2024, Additional history exists CKD HGB USE SMARTSET 84517 12/02/202512/02, 12/01/2024, 12/01/2024, Additional history exists Pneumococcal [...] Power of Attor philipp? No Care Teams Veneer Stacker Relationship Specialty Start Date End Date Chuy Batista MD [address] [address] PCP - General Family Medicine 09/14/24 documented as of this encounter
--- OUTSIDE RECORDS SUMMARY | 2024-12-19 09:41 | External Medical Summary | Summary of Care ---
Author Name Unknown Organization [facility] Address [address] [place] [address] Phone [phone] Care Team Providers Care Hand Splitter Name Role Phone Chuy Batista MD Primary Care Provider +1- [phone] Reason for Visit * Reason Onset Date Comments Appointment 11/30/2024 Encounter Details Date Type Department Care Team (Late st Contact Info) Description 11/30/2024 Telephone Urology, [facility] [address] [place] [address] Services, Scheduling [address] [place] [address] Appointment Allergies Active Allergy Reactions Criticality Noted [...] Tablet before bedtime. 025 Active Nystatin-Triamci nolone 587555-0.1 UNIT/GM-% External Ointment (Mycolog) Apply 1 Application [...] DAY 180 Each 3 024 2024 Discontinued [facility] Wound/Burn Dressing External GelIndications:P ressure injury [...] Allergic rhinitis due to pollen 01/16/2019 05/08/2019 MROA (dyspnea on exertion) 08/19/2018 Nonallergic rhinitis 12/28/2017 [...] mRNA, LNP-s, No Pre serve, 2-Dose Series (D[employer]s [employer]) 05/30/2021,10/29/2020,10/08/2020 COVID-19, LNP-s, No Preserve , Prosper-sucrose, [...] discharge follow up in 2-[address] [facility] with Dr. Prado or can follow up in December in [place] if patient/ wish. Please change May appointment [...] has nurse visit on December 06 at [facility]. fyi * Telephone Encounter - Erma Crespo LPN - 12/01/2024 8:56 AM EDT Patient currently admitted to [facility]; if they do no wish to travel to [place] they can be scheduled for next available with Dr. Prado in [facility]. * Telephone Encounter - Angie Corea OSA - 11/30/2024 4:26 PM EDT Pt requesting that pt has a cytoscopy done by Dr Prado at [facility]. He is scheduled with Dr Smith at [place] on 01/03/25. Please advise on this. documented in this encounter Plan of Treatment Upcoming Encounters Date Type Department Care Team (Late st Contact Info) Description 12/05/2024 11:00 AM EDT Office Visit Family [facility], [place] [address] [phone] Chuy Batista MD [address] [place] [address] 12/08/2024 1:00 PM EDT Cardiac Studies Cardiac Studies, [place] Amanda Ybarra [address] [phone] 01/03/2025 3:00 PM EDT Procedure Only Urology Miri Orozco [address] [place] [address] Willi Smith Jr., MD [address] [place] [address] 01/05/2025 11:30 AM EDT Imaging Radiology [facility] [facility] [address] [place] [phone] 01/10/2025 9:30 AM EDT Office Visit Hematology/Oncology [facility] [address] [place] [phone] Xavi Gramajo MD [address] [place] [address] 05/22/2025 10:45 AM EDT Procedure Only Urology, [facility] [address] [place] [phone] Valdemar Prado MD [address] [place] [address] Health Maintenance Due Date Last Done Comments Albumin/Creatinine Ratio 1963 DTap/Tdap Vaccines (1 - Tdap) 1964 Adult Wellness Visit 02/01/2020 01/31/2019 COVID-19 Vaccine ( - season) 2024 07/22/2022, 07/22/2022, 02/11/2022, Additional history exists CKD PHOS USE SMARTSET 99885 09/11/202408/17, 09/11/2023, 07/14/2021, Additional history exists Depression Screening 12/26/2024 12/27/2023 GFR 06/03/2025 12/02/2024, 11/14, 10/13/2024, Additional history exists CKD HGB USE SMARTSET 96197 12/02/202512/02, 12/01/2024, 12/01/2024, Additional history exists Pneumococcal [...] Power of Attor philipp? No Care Teams Hand Splitter Relationship Specialty Start Date End Date Chuy Batista MD [address] [address] PCP - General Family Medicine 09/14/24 documented as of this encounter
--- OUTSIDE RECORDS SUMMARY | 2024-12-19 09:42 | External Medical Summary | Summary of Care ---
Author Name Unknown Organization [facility] Address [address] [place] [address] Phone [phone] Care Team Providers Care Development Planner Name Role Phone Chuy Batista MD Primary Care Provider +1- [phone] Encounter Details Date Type Department Care Team (Late st Contact Info) Description 12/01/2024 Telephone [facility] Urology [address] [facility] [place] [address] Jimena Claros PA-C [address] [facility] [place] [address] Allergies Active Allergy Reactions Criticality Noted Date Comments Chocolate Diarrhea 05/14/2023 Chocolate Flavoring Agent (Non-Screening) High 10/09/2023 Other Reaction(s): DIARRHEA/ Cannot take, interacts w/ medications. Clindamycin Hcl 09/24/2005 rash Cranberry 10/20/2023 Iodinated Contrast Media 10/01/2015 Ioversol Other (Please comment) High 08/10/[address] IV DYE Pembrolizumab High 10/10/2023 Other Reaction(s): myocarditis documented as of this encounter (statuses as of 12/01/2024) Medications Trelegy Ellipta 200-62.5-25 MCG/ACT Aerosol Powder Breath Activated (Fluticasone-Umec lidinium-Vilanter ol) Inhale 1 Puff by mouth every evening. 60 Blister Dosing Unit 11 03/13/20 23 Suspended EpiPen 2-Pedro 0.3 MG/0.3ML Injection Solution Auto-injectorIndi cations:Anaphylax is, sequela USE DIRECTED 1 Each 01/28/20 Suspended Multi Adult Gummies Oral Tablet Chewable Take by mouth. Suspended Iron 325 (65 Fe) MG Oral Tablet Take 1 Tablet by mouth in the morning. Suspended Acetaminophen 325 MG Oral Capsule Take 650 mg by mouth every 4 hours as needed for Pain (fever or pain). Suspended Ascorbic Acid 500 MG Oral Tablet Take 2 Tablets by mouth every morning. Suspended polyethylene glycol 3350 119 gram OR POWD Take 119 g by mouth once. Suspended B-12 1000 MCG Oral Tablet Take by mouth daily. Suspended Magnesium Chloride 64 MG Oral Tablet Take by mouth. Chikis pended Magnesium Hydroxide 400 MG/5ML Oral Suspension (Milk of Magnesia) Take 30 mL by mouth as needed for Constipation. Suspended Fludrocortisone Acetate 0.1 MG Oral Tablet (Florinef) Take 1 Tablet by mouth in the morning. 30 Tablet 03/07/20 24 Suspended Magnesium Cl-Calcium Carbonate 71.5-119 MG Oral Tablet Delayed Release Take 64 mg by mouth in the morning and 64 mg before bedtime. 01/17/20 24 Suspended Hydrocortisone 10 MG Oral Tablet (Cortef)Indicatio ns:Adrenal insufficiency (HCC) Take 20 mg in AM and 10 mg in afternoon 90 Tablet 5 07/24/20 24 Suspended Lactobacillus Probiotic Oral Tablet Take by mouth. Suspe nded Mirabegron ER 25 MG Oral Tablet Extended Release 24 Hour (Myrbetriq) Take 1 Tablet by mouth in the morning. Suspended Senna 8.6 MG Oral Capsule Take by mouth. Suspe nded Tab-A-Kika Oral Tablet Take 1 Tablet by mouth in the morning. Suspended Vitamin B-12 1000 MCG/15ML Oral Liquid Take by mouth. Suspe nded Vitamin C ER 1000-100 MG Oral Tablet Extended Release Take by mouth. Suspe nded Nitroglycerin 0.4 MG Sublingual Tablet Sublingual (Nitrostat) Place 1 Tablet under the tongue every 5 minutes as needed for Pain, Chest. Suspended Memantine HCl 10 MG Oral Tablet (Namenda) Take 1 tab by mouth twice per day 60 Tablet 5 07/24/20 24 Suspended Lidocaine 4 % External Patch (Aspercreme)Indic ations:Chronic bilateral low back pain without sciatica Place 1 patch on skin over affected area daily (leave on for 12 hours). 30 Patch 1 07/24/20 24 Suspended Omeprazole 20 MG Oral Capsule Delayed Release (PriLOSEC)Indicat ions:Gastroesopha geal reflux disease, unspecified whether esophagitis present TAKE 1 CAPSULE BY MOUTH EVERY MORNING 90 Capsule 3 07/25/20 24 Suspended Vitamin D 125 MCG (5000 UT) Oral Capsule Take 1 capsule daily 30 Capsule 11 07/26/20 24 Suspended Mirabegron ER 25 MG Oral Tablet Extended Release 24 Hour (Myrbetriq) Take 1 Tablet by mouth in the morning. 30 Tablet 11 07/27/20 24 Suspended Solifenacin Succinate 5 MG Oral Tablet (VESIcare) Take 1 Tablet by mouth in the morning. 30 Tablet 6 09/28/19 25 Suspended Fluticasone Propionate 50 MCG/ACT Nasal Suspension (Flonase) Administer 2 Sprays into nostril in the morning. 16 mL 3 09/28/19 25 Suspended Eliquis 2.5 MG Oral Tablet Take 1 Tablet by mouth in the morning and 1 Tablet before bedtime. 11/17/19 25 Suspended Nystatin-Triamcin olone 402859-6.1 UNIT/GM-% External Ointment (Mycolog) Apply 1 Application topically to affected area in the morning and 1 Application before bedtime. 11/18/19 25 Suspended Nitrofurantoin Monohyd Macro 100 MG Oral Capsule (Macrobid)Indicat ions:Enterococcus UTI Take 1 Capsule by mouth in the morning and 1 Capsule before bedtime. Do all this for 7 days. With food until gone. 14 Capsule 11/30/19 25 025 Suspended documented as of this encounter (statuses as of 12/01/2024) Active Problems Problem Noted Date Diagnosed Date [...] as of this encounter (statuses as of 12/01/2024) Resolved Problems Problem Noted Date Diagnosed Date [...] as of this encounter (statuses as of 12/01/2024) Immunizations Name Administration Dates Next Due COVID-19 mRNA, LNP-s, No Pre serve, 2-Dose Series (NetMinder) 05/30/2021,10/29/2020,10/08/2020 COVID-19, LNP-s, No Preserve , Prosper-sucrose, [...] AM EDT Angie Vergara i, RN * Do you [...] Entry Date Author Yes 12/01/2024 10:07 AM ESET Angie Vergara i, RN documented in this encounter Miscellaneous Notes * Telephone Encounter - Jimena Claros PA-C - 12/01/2024 1:15 PM EDT Okay to cancel upcoming catheter change appointment with nursing as patient is currently admitted. Please schedule patient for hospital discharge follow up in 2-3 months at [place] with [facility]. Prado or can follow up in December in [place] if patient/ wish. Please change May appointment to cystoscopy. Thanks! documented in this encounter Plan of Treatment Upcoming Encounters Date Type Department Care Team (Late st Contact Info) Description 12/06/2024 10:00 AM EDT [facility] [address] [place] [phone] [place], Nurse Urology Sukhjinder [address] [place] [address] 12/08/2024 1:00 PM EDT Cardiac Studies Cardiac [place] [address] [place] [phone] 01/03/2025 3:00 PM EDT Procedure Only Urology Miri Orozco [address] [place] [address] Willi Smith Jr., MD [address] [place] [address] 01/05/2025 11:30 AM EDT Imaging Radiology [address] [place] [phone] 01/10/2025 9:30 AM EDT Office Visit Hematology/Oncology [facility] [address] [facility] [place] [address] Xavi Gramajo MD [address] [facility] [place] [address] 05/22/2025 10:45 AM EDT Office Visit Urology, [facility] [address] [place] [phone] Valdemar Prado MD [address] [place] [address] Health Maintenance Due Date Last Done Comments Albumin/Creatinine Ratio 1963 DTap/Tdap Vaccines (1 - Tdap) 1964 Adult Wellness Visit 02/01/2020 01/31/2019 COVID-19 Vaccine ( season) 2024 07/22/2022, 07/22/2022, 02/11/2022, Additional history exists CKD PHOS USE SMARTSET 41361 09/11/202408/17, 09/11/2023, 07/14/2021, Additional history exists Depression Screening 12/26/2024 12/27/2023 GFR 06/02/2025 12/01/2024, 09/17, 07/24/2024, Additional history exists CKD HGB USE SMARTSET 79751 12/01/202512/01, 12/01/2024, 12/01/2024, Additional history exists Pneumococcal Vaccine: [...] Activated Date Inactivated Comments 12/01/2024 9:30 AM This order ref lects the patients wishes and were consensually agreed [...] Power of Attor philipp? No Care Teams Development Planner Relationship Specialty Start Date End Date Chuy Batista MD [address] [place] [address] PCP - General Family Medicine 09/14/24 documented as of this encounter
--- OUTSIDE RECORDS SUMMARY | 2024-12-19 09:42 | External Medical Summary ---
Author Name Unknown Address Unknown Organization K1F:LABORATORY [facility] - [address] [place] [address] Laboratory Report Ordering Provider Test Date Status CASIE KU 12/02/2024 05:35:00 Final Observation Date Value Abnormality Reference (Units ) Status BUN 12/02/2024 05:35:00 16 6-20 (mg/dL) Final Creatinine 12/02/2024 05:35:00 1.6 Above high normal 0.6-1.2 (mg/dL) Final Glomerular filtration rate/1.73 sq M.predicted [Volume Rate/Area] in Serum, Plasma or Blood by Creatinine-based formula (CKD-EPI) 12/02/2024 05:35:00 44 Below low normal >=60 (mL/min) Final eGFR is calculated based on the CKD-EPI 2020 equation. Sodium 12/02/2024 05:35:00 141 135-146 (m mol/L) Final Potassium 12/02/2024 05:35:00 3.5 3.5-5.1 (m mol/L) Final Cl 12/02/2024 05:35:00 107 98-107 (mm ol/L) Final CO2 12/02/2024 05:35:00 25 22-32 (mmo l/L) Final Anion gap 12/02/2024 05:35:00 9 7-15 (mmol /L) Final Glucose 12/02/2024 05:35:00 104 70-120 (mg /dL) Final Calcium 12/02/2024 05:35:00 8.3 Below low normal 8.4 -10.2 (mg/dL) Final Performing Location LABORATORY [facility] - [address] [place] [address]
--- OUTSIDE RECORDS SUMMARY | 2024-12-19 09:42 | External Medical Summary | Summary of Care ---
Author Name Unknown Organization [facility] Address [address] [place] [address] Phone [phone] Care Team Providers Care Systems Project Manager Name Role Phone Chuy Batista MD Primary Care Provider [phone] Reason for Visit * Reason Onset Date Comments Appointment 11/30/2024 Encounter Details Date Type Department Care Team (Late st Contact Info) Description 11/30/2024 Telephone Urology, [facility] [address] [place] [address] Services, Scheduling [address] [place] [address] Appointment Allergies Active Allergy Reactions Criticality Noted Date Comments Chocolate Diarrhea 05/14/2023 Chocolate Flavoring Agent (Non-Screening) High 10/09/2023 Other Reaction(s): DIARRHEA/ Cannot take, interacts w/ medications. Clindamycin Hcl 09/24/2005 rash Cranberry 10/20/2023 Iodinated Contrast Media 10/01/2015 Ioversol Other (Please comment) High 08/10/[address] IV DYE Pembrolizumab High 10/10/2023 Other Reaction(s): myocarditis documented as of this encounter (statuses as of 12/01/2024) Medications Syringe/Needle, Disp, 25G X 1-1/2" 3 [...] Capsule by mouth in the morning. Active B-12 [...] morning. 30 Tablet 11 03/07/20 24 Active Magnesium Cl-Calcium Carbonate 71.5-119 MG Oral Tablet Delayed Release Take 64 mg by mouth in the morning and 64 mg before bedtime. 01/17/20 24 Active Hydrocortisone 10 MG Oral Tablet (Cortef)Indicatio ns:Adrenal insufficiency (HCC) Take 20 mg in AM and 10 mg in afternoon 90 Tablet 5 07/24/20 24 Active Lactobacillus Probiotic Oral Tablet Take by [...] 1 Tablet before bedtime. 08/23/19 25 Active Solifenacin Succinate 5 MG Oral Tablet (VESIcare) Take 1 Tablet by mouth in the morning. 30 Tablet 6 09/28/19 25 Active Fluticasone Propionate 50 MCG/ACT Nasal Suspension (Flonase) Administer 2 Sprays into nostril in the morning. 16 mL 3 09/28/19 25 Active Eliquis 2.5 MG Oral Tablet Take 1 Tablet by mouth in the morning and 1 Tablet before bedtime. 11/17/19 25 Active Nystatin-Triamcin olone 921266-8.1 UNIT/GM-% External Ointment (Mycolog) Apply 1 Application topically to affected area in the morning and 1 Application before bedtime. 11/18/19 25 Active Nitrofurantoin Monohyd Macro 100 MG Oral Capsule (Macrobid)Indicat ions:Enterococcus UTI Take 1 Capsule by mouth in the morning and 1 Capsule before bedtime. Do all this for 7 days. With food until gone. 14 Capsule 11/30/19 25 025 Active documented as of this encounter (statuses as of 12/01/2024) Active Problems Problem Noted Date Diagnosed Date Enterococcus UTI 12/01/2024 Fall at home 12/01/2024 Sepsis with acute renal failure 12/01/2024 Pressure injury of sacral region, stage [...] mRNA, LNP-s, No Pre serve, 2-Dose Series (Jiff) 05/30/2021,10/29/2020,10/08/2020 COVID-19, LNP-s, No Preserve , Prosper-sucrose, [...] encounter Miscellaneous Notes * Telephone Encounter - Erma Crespo LPN - 12/01/2024 8:56 AM EDT Patient currently admitted to [facility]; if they do no wish to travel to [place] they can be scheduled for next available with Dr. Prado in [facility]. * Telephone Encounter - Angie Corea OSA - 11/30/2024 4:26 PM EDT Pt requesting that pt has a cytoscopy done by Dr Prado at [facility]. He is scheduled with Dr Smith at [place] on 01/03/25. Please advise on this. documented in this encounter Plan of Treatment Upcoming Encounters Date Type Department Care Team (Late st Contact Info) Description 12/06/2024 10:00 AM EDT Nurse Only Urology, [facility] [address] [place] [phone] [facility], Nurse Urology [facility] [address] [place] [address] 12/08/2024 1:00 PM EDT Cardiac Studies Cardiac Studies, Valarie Ybarra [address] [phone] 01/03/2025 3:00 PM EDT Procedure Only Urology Miri Orozco [address] [place] [address] Willi Smith Jr., MD [address] [place] [address] 01/05/2025 11:30 AM EDT Imaging Radiology [facility] [address] [facility] [place] [address] [place] [phone] 01/10/2025 9:30 AM EDT Office Visit Hematology/Oncology [place], [place] [address] [facility] [place], [place] [phone] Xavi Gramajo MD [address] [facility] [place] [address] 05/22/2025 10:45 AM EDT Office Visit Urology, [facility] [address] [place] [phone] Valdemar Prado MD [address] [place] [address] Health Maintenance Due Date Last Done Comments Albumin/Creatinine Ratio 1963 DTap/Tdap Vaccines (1 - Tdap) 1964 Adult Wellness Visit 02/01/2020 01/31/2019 COVID-19 Vaccine ( season) 2024 07/22/2022, 07/22/2022, 02/11/2022, Additional history exists CKD PHOS USE SMARTSET 66775 09/11/202408/17, 09/11/2023, 07/14/2021, Additional history exists Depression Screening 12/26/2024 12/27/2023 GFR 06/02/2025 12/01/2024, 09/17, 07/24/2024, Additional history exists CKD HGB USE SMARTSET 73536 12/01/202512/01, 12/01/2024, 10/13/2024, Additional history exists Pneumococcal Vaccine: 50+ Years [...] Last Indicated Resolved Time Respiratory Rule-Out 12/01/2024 12/01/202412/01/2 025 6:16 AM EDT COVID-19 Rule-Out 12/01/2024 [...] of Attor philipp? No Care Teams Systems Project Manager Relationship Specialty Start Date End Date Chuy Batista MD [address] [place] [address] PCP - General Family Medicine 09/14/24 documented as of this encounter
--- OUTSIDE RECORDS SUMMARY | 2024-12-19 09:42 | External Medical Summary ---
Author Name Unknown Address Unknown Organization [id number]:[facility] - [address] [place] [id number] Laboratory Report Ordering Provider Test Date Status AMITA TODD 12/02/2024 09:07:53 Final Observation Date Value Abnormality Reference (Units) Status Bacteria identified in Specimen by Culture 12/02/2024 09:07:53 No significant growth Final Test: Culture, Urine, Quanti tative
Specimen Source: Urine, Catheter
Specimen Type: Urine
Specimen Date: 12/02/2024906
Result Date: 12/03/2024 110
Result Status: Final result
Resulting Lab: [facility]
[address]
[place] [id number]

CULTURE

No significant growth

null Performing Location [facility] - [address] [facility] [address]
--- OUTSIDE RECORDS SUMMARY | 2024-12-19 09:42 | External Medical Summary | Summary of Care ---
Author Name Unknown Organization [facility] [address] [place] [address] Phone [phone] Care Team Providers Care Door And Arrival Attendant Name Role Phone Chuy Batista MD Primary Care Provider [phone] Reason for Visit * Reason Comments Fall Hematuria * Auth/Cert Specialty Diagnoses / Procedures Referred By Contsiria t Referred To Contact [address] [address] Phone: tel:[phone] [facility] Emergency Department ([facility]) [address] [place] [address] Phone: tel: fax: Referral ID Status Reason Start Date Expiration Date Visits Re quested Visits Authorized [id number] Encounter Details Date Type Department Care Team (Latest Contact Info) Description 12/01/2024 4:52 AM EDT - 12/02/2024 12:15 PM EDT Hospital Encounter 3B [facility] 3rd Floor [address] [place] [address] Susie Funes DO [address] [place] [id number] Nate Graff MD [address] [place] [address] [phone] Olivier Crawley MD [address] [place] [phone] Pt Handout (on AVS) Discharge Disposition: Home with Services Allergies Active Allergy Reactions Criticality Noted Date Comments Chocolate Diarrhea 05/14/2023 Chocolate Flavoring Agent (Non-Screening) High 10/09/2023 Other Reaction(s): DIARRHEA/ Cannot take, interacts w/ medications. Clindamycin Hcl 09/24/2005 rash Cranberry 10/20/2023 Iodinated Contrast Media 10/01/2015 Ioversol Other (Please comment) High 08/10/[address] IV DYE Pembrolizumab High 10/10/2023 Other Reaction(s): myocarditis documented as of this encounter (statuses as of 12/03/2024) Medications Trelegy Ellipta 200-62.5-25 MCG/ACT Aerosol Powder [...] nostril in the morning. 16 mL 3 025 Active Eliquis 2.5 MG Oral Tablet Take 1 Tablet by mouth in the morning and 1 Tablet before bedtime. 025 Active Nystatin-Triamci nolone 555491-1.1 UNIT/GM-% External Ointment (Mycolog) Apply 1 Application topically to affected area in the morning and 1 Application before bedtime. Active Linezolid 600 MG Oral Tablet (Zyvox) Take 1 Tablet by mouth in the morning and 1 Tablet before bedtime. Do all this for 6 days. 12 Tablet 025 2024 Active Syringe/Needle, Disp, 25G X 1-1/2" 3 ML MISC To use with injection of hydrocortisone if needed 2 Each 5 016 2024 Discontinued Breo Ellipta 200-25 MCG/ACT Inhalation Aerosol Powder Breath Activated (fluticasone furoate-vilanter ol) INHALE 1 PUFF BY MOUTH EVERY DAY 180 Each 3 024 2024 Discontinued [facility] Wound/Burn Dressing External GelIndications:P ressure [...] the morning and 1 Capsule before bedtime. 2024 Discontinued Amoxicillin-Pot Clavulanate 875-125 MG Oral Tablet (Augmentin) Take 1 Tablet by mouth in the morning and 1 Tablet before bedtime. 2024 Discontinued Nitrofurantoin Monohyd Macro 100 MG Oral Capsule (Macrobid)Indica tions:Enterococc us UTI Take 1 Capsule by mouth in the morning and 1 Capsule before bedtime. Do all this for 7 days. With food until gone. 14 Capsule 025 2024 Discontinued documented as of this encounter (statuses as of 12/03/2024) Active Problems Problem Noted Date Diagnosed Date Enterococcus UTI 12/01/2024 Fall at home 12/01/2024 Sepsis with acute renal failure 12/01/2024 Ambulatory dysfunction 12/01/2024 Chronic indwelling Tatum catheter 12/01/2024 History of prostate cancer 12/01/2024 [...] as of this encounter (statuses as of 12/03/2024) Resolved Problems Problem Noted Date Diagnosed Date [...] as of this encounter (statuses as of 12/03/2024) Immunizations Name Administration Dates Next Due COVID-19 mRNA, LNP-s, No Pre serve, 2-Dose Series (CheckBonus) 05/30/2021,10/29/2020,10/08/2020 COVID-19, LNP-s, No Preserve , Prosper-sucrose, [...] Sign Reading Time Taken Comments Blood Pressure 118/66 12/02/2024 7:30 AM EDT Pulse 68 12/02/2024 7:30 AM EDT Temperature 35.8 °C (96.4 °F) 12/02/2024 7:30 AM ED T Respiratory Rate 20 12/02/2024 7:30 AM EDT Oxygen Saturation 98% 12/02/2024 7:30 AM EDT Inhaled Oxygen Concentration - - Weight 99.2 kg (218 lb 11.1 oz) 12/02/2024 5:47 AM EDT Height 188 cm (6' 2") 12/01/2024 9:50 AM EDT Body Mass Index 28.08 12/01/2024 9:50 AM EDT documented in this encounter Functional Status [...] AM ESET Angie Vergara i, RN * Because of [...] Vergara i, RN documented in this encounter Discharge Summaries * Olivier Crawley MD - 12/02/2024 12:15 PM EDT Images from the original note were not included. [address] [address] Admission Date: 12/01/2024 Discharge Date: 12/02/2024 RECOMMENDED TO DO FOR NEXT PROVIDER(S): Follow up with urologist as per schedule. REASON(S) FOR MEDICATION CHANGE(S): Recent VRE UTI DISPOSITION ON DISCHARGE: home with health services Active Hospital Problems Diagnosis *Principal Diagnosis - Sepsis with acute renal failure (HCC) Enterococcus UTI Fall at home Ambulatory dysfunction Chronic indwelling Tatum catheter History of prostate cancer S/P IVC filter Urothelial carcinoma of bladder (HCC) Mild cognitive impairment Chronic anticoagulation Adrenal insufficiency (HCC) History of DVT in adulthood History of pulmonary embolism Resolved Hospital Problems No resolved problems to display. ADMISSION HISTORY & PHYSICAL EXAM (focused): Information gathered by chart review, nursing noted, ED physician, personally called patient's , Ivet. 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 Per , he was found wandering the house around early this morning and she put him back to bed. Later on in the early breastfeeding care specialist, she found him sitting on the floor. She believes he was trying to sit on the couch and didn't apply brakes to his Rollator and fell onto the floor. He was c/o right buttock pain. He has been in his usual state of health yesterday, except he felt chilled. A home health nurse came yesterday and changed his tatum catheter- immediately after she changed catheter he had hematuria which continued since yesterday. He has been on Macrobid since 11/29 d/t VRE UTI- urine can be found under lab tab and was scanned inon 11/24/24. In the ED, noted to be febrile. Labs remarkable for WBC 11.9, lactate 3.0--2.0, procal 0.13, Cr 1.7(baseline around 1.1-1.4). He had trauma scans- CT AP- tatum was in urethra. Tatum was removed and new one re-inserted. He was initially on bladder irrigation and urine cleared up. He was given CTX and NSS 500 ml bolus. Patient admitted to Hospital Medicine for further evaluation and management. Vitals on admission: BP: 131 mmHg/74 mmHg (12/01/24948) Pulse: 77 (12/01/24948) Resp: 18 (12/01/24948) Temp: 35.89 C (12/01/24948) Temp Summary: Temp Min: 35.9 °C (96.6 °F) Max: 38.8 °C (101.8 °F) SpO2: 99 % (12/01/24514) O2 flow rate: Supplemental O2 Delivery: Room Air, None (12/01/24948) General: Pt in bed, alert, pleasantly confused at times. Head: Normocephalic, No masses, lesions, tenderness or abnormalities Eye Exam: EOMI, Conjunctiva are pink and non-injected, sclera clear Ears: External ears normal Oropharynx: mucous membranes moist without erythema or exudates Heart: regular rate & rhythm and + murmur appreciated Lungs: no respiratory distress, CTA, without wheeze, rhonchi or crackles Abdomen: + BS, soft, nontender, nondistended, no rebound tenderness or guarding - tatum catheter with some dried blood around tip of penis. Draining concentrated urine with somestreaks of blood. Lower Extremities: + dependent edema R>L ( reports this is his normal d/t DVT in right leg),no calf tenderness, + stasis changes note HOSPITAL COURSE (focused): 79 yo M with hx of prostate cancer s/p radiation , bladder cancer s/p surgery now off keytruda secondary to myocarditis , ambulatory dysfunction, adrenal insufficiency, ANDRZEJ not on CPAP, radiation cystitis with recurrent hematuria, PE.DVT s/p IVC filter on eliquis, cardiac arrest , asthma presented after a fall and hematuria after his tatum catcher exchanged by home nurse. He was recently on Macrobid on 11/29 for VRE UTI. Trauma scans are negative for fracture. MRI brain was no acute ischemic infraction or no acute intracranial abnormality. Tatum was removed and a new tatum was reinserted in ED. He was initially on bladder irrigation and urine cleared up. Admit for sepsis with VIOLETA 2/2 complicated UTI and hematuria from malposition tatum. He was started on PO Linezolid 600 mg bid and IV CTX. Urine culture from 12/02 is pending which was sent after placing a new catheter in ED. Check with infectious disease Dr. Scott --okchin with Linezolid 600 mg Q 12 H for one week to treat for VTE UTI . Stop Macrobid. Urologist suggested follow up in clinic at [facility] for cystoscopy He feels 100% better and no hematuria in the tatum bag. was explained at the bed side. Patientadamant to go home. He was discharged home with outpatient follow up . Operations & Procedures: exchange tatum catheter Complications: none applicable Significant Lab and Imaging Results: Results for orders placed or performed during the hospital encounter of 12/01/24 COMPREHENSIVE METABOLIC PANEL Result Value Ref Range BUN 16 6 - 20 mg/dL CREATININE 1.7 (H) 0.6 - 1.2 mg/dL EGFR 42 (L) >=60 mL/min SODIUM 141 135 - 146 mmol/L POTASSIUM 4.0 3.5 - 5.1 mmol/L CHLORIDE 103 98 - 107 mmol/L CO2 22 22 - 32 mmol/L ANION GAP 16 (H) 7 - 15 mmol/L GLUCOSE 99 70 - 120 mg/dL Albumin 3.7 (L) 3.8 - 5.0 g/dL AST 38 10 - 50 U/L Alkaline Phosphatase 111 35 - 130 U/L Bilirubin, Total 0.8 <=1.2 mg/dL CALCIUM 9.0 8.4 - 10.2 mg/dL Protein 6.5 6.0 - 8.3 g/dL ALT 10 10 - 50 U/L TOXICOLOGY, URINE SCREEN W/ CONFIRMATION Result Value Ref Range Amphetamines Screen, U Negative Negative Benzodiazepines Screen, U Negative Negative Cannabinoids Screen, U Negative Negative Cocaine Metabolite Screen, U Negative Negative Fentanyl Screen, U Negative Negative Hydrocodone Screen, U Negative Negative Methadone Metabolite Screen, U Negative Negative Morphine/Codeine Screen, U Negative Negative Oxycodone Screen, U Negative Negative ETHANOL, MEDICAL Result Value Ref Range Ethanol Negative Negative LACTATE,WHOLE BLOOD Result Value Ref Range Lactate 3.1 (H) 0.4 - 2.0 mmol/L PT INR Result Value Ref Range Prothrombin Time 15.7 (H) 11.6 - 15.2 seconds INR 1.2 0.8 - 1.2 URINALYSIS, REFLEX TO MICROSCOPIC Result Value Ref Range Color, Urine Red (A) Light Yellow, Yellow, Dark Yellow Clarity, Urine Cloudy (A) Clear Glucose, Urine Negative Negative mg/dL Bilirubin, Urine Small (A) Negative Ketone, Urine Trace (A) Negative mg/dL Specific Boykin, Urine 1.012 1.003 - 1.030 Blood, Urine Large (A) Negative pH, Urine 6.0 5.0 - 7.5 Units Protein, Urine 100 (A) Negative mg/dL Urobilinogen, Urine 1.0 0.2, 1.0 mg/dL Nitrite, Urine Positive (A) Negative Esterase, Urine Moderate (A) Negative TYPE AND SCREEN Result Value Ref Range ABO A Rh Positive Red Blood Cell Antibody Screen Negative Specimen Expiration Date 12/04/2024 23:59 BNP, NT-PRO Result Value Ref Range BNP, NT-Pro 477 (H) <300 pg/mL TROPONIN T, HIGH SENSITIVITY Result Value Ref Range Troponin T, High Sensitivity 44 (H) <=22 ng/L RESPIRATORY PATHOGEN PANEL, PCR Result Value Ref Range Adenovirus Negative Negative Coronavirus 229E Negative Negative Coronavirus HKU1 Negative Negative Coronavirus NL63 Negative Negative Coronavirus OC43 Negative Negative Coronavirus SARS-CoV-2 Negative Negative Human Metapneumovirus Negative Negative Rhinovirus/Enterovirus Negative Negative Influenza A Negative Negative Influenza B Negative Negative Parainfluenza Virus 1 Negative Negative Parainfluenza Virus 2 Negative Negative Parainfluenza Virus 3 Negative Negative Parainfluenza Virus 4 Negative Negative Respiratory Syncytial Virus Negative Negative Bordetella pertussis Negative Negative Chlamydia pneumoniae Negative Negative Mycoplasma pneumoniae Negative Negative Bordetella parapertussis Negative Negative PROCALCITONIN Result Value Ref Range Procalcitonin 0.13 (H) <0.10 ng/mL CULTURE, BLOOD Result Value Ref Range Blood Culture Growth No growth to date CULTURE, BLOOD Result Value Ref Range Blood Culture Growth No growth to date CBC Result Value Ref Range WBC 11.99 (H) 4.00 - 10.80 K/uL RBC 4.51 4.50 - 5.25 M/uL HGB 13.3 (L) 14.0 - 16.8 g/dL HCT 40.3 40.0 - 48.4 % MCV 89.4 82.0 - 99.5 fL MCH 29.5 27.0 - 34.0 pg MCHC 33.0 32.0 - 36.0 g/dL RDW 15.9 11.5 - 15.5 % PLT 233 140 - 400 K/uL MPV 9.4 6.6 - 11.1 fL NRBCs 0 <=0 /100 WBCs DIFFERENTIAL, AUTOMATED Result Value Ref Range WBC 11.99 (H) 4.00 - 10.80 K/uL Neutrophils % 79.2 (H) 40.0 - 75.0 % Lymphocytes % 12.5 (L) 18.0 - 42.0 % Monocytes % 7.0 1.0 - 11.0 % Eosinophils % 0.5 0.0 - 6.0 % Basophils % 0.3 0.0 - 2.0 % Immature Granulocytes % 0.5 0.0 - 2.0 % Absolute Neutrophils 9.49 (H) 1.80 - 7.70 K/uL Absolute Lymphocytes 1.50 1.00 - 4.80 K/ul Absolute Monocytes 0.84 0.00 - 1.10 K/uL Absolute Eosinophils 0.06 0.00 - 0.70 K/uL Absolute Basophils 0.04 0.00 - 0.20 K/uL Absolute Immature Granulocytes 0.06 0.00 - 0.20 K/uL ABO/RH Result Value Ref Range ABO A Rh Positive MICROSCOPIC EXAM, URINE Result Value Ref Range RBC, Urine 50+ (A) 0 - 2 /HPF WBC, Urine 20-29 (A) 0 - 2 /HPF Bacteria, Urine 0-25 0 - 25 /HPF TROPONIN T, HIGH SENSITIVITY Result Value Ref Range Troponin T, High Sensitivity 42 (H) <=22 ng/L LACTATE Result Value Ref Range Lactate 2.0 0.4 - 2.0 mmol/L MRSA SCREEN, PCR Result Value Ref Range MRSA PCR Result Positive (A) Negative HEMOGLOBIN AND HEMATOCRIT PANEL Result Value Ref Range HGB 12.1 (L) 14.0 - 16.8 g/dL HCT 36.3 (L) 40.0 - 48.4 % CBC Result Value Ref Range WBC 8.33 4.00 - 10.80 K/uL RBC 3.66 4.50 - 5.25 M/uL HGB 10.9 (L) 14.0 - 16.8 g/dL HCT 33.2 (L) 40.0 - 48.4 % MCV 90.7 82.0 - 99.5 fL MCH 29.8 27.0 - 34.0 pg MCHC 32.8 32.0 - 36.0 g/dL RDW 16.1 11.5 - 15.5 % PLT 179 140 - 400 K/uL MPV 9.1 6.6 - 11.1 fL NRBCs 0 <=0 /100 WBCs BASIC METABOLIC PANEL Result Value Ref Range BUN 16 6 - 20 mg/dL CREATININE 1.6 (H) 0.6 - 1.2 mg/dL EGFR 44 (L) >=60 mL/min SODIUM 141 135 - 146 mmol/L POTASSIUM 3.5 3.5 - 5.1 mmol/L CHLORIDE 107 98 - 107 mmol/L CO2 25 22 - 32 mmol/L ANION GAP 9 7 - 15 mmol/L GLUCOSE 104 70 - 120 mg/dL CALCIUM 8.3 (L) 8.4 - 10.2 mg/dL CK Result Value Ref Range CK 116 39 - 308 U/L GLUCOSE METER, POINT OF CARE Result Value Ref Range Glucose - POCT 101 70 - 120 mg/dL *Note: Due to a large number of results and/or encounters for the requested time period, some results have not been displayed. A complete set of results can be found in Results Review. PROCEDURE INFORMATION: Exam: XR Chest Exam date and time: 12/01/2024 5:02 AM Age: 79 years old Clinical indication: Other: Trauma TECHNIQUE: Imaging protocol: Radiologic exam of the chest. Views: 1 view. COMPARISON: DX XR CHEST 1 VIEW 09/10/2023 4:31 PM FINDINGS: Lungs: No consolidation or pulmonary edema. Pleural spaces: No pleural effusion. No pneumothorax. Heart/Mediastinum: Cardiomediastinal silhouette is normal in size. Vasculature: Atherosclerotic calcifications in the thoracic aorta. Bones/joints: No acute fractures. IMPRESSION IMPRESSION: No acute findings. THIS DOCUMENT HAS BEEN ELECTRONICALLY SIGNED BY GURU BUSTAMANTE MD Exam Ended: 12/01/24 05:16 Last Resulted: 12/01/24 05:34 PROCEDURE INFORMATION: Exam: XR Pelvis Exam date and time: 12/01/2024 5:09 AM Age: 79 years old Clinical indication: Other: Trauma TECHNIQUE: Imaging protocol: Radiologic exam of the pelvis. Views: 1 or 2 view. COMPARISON: CT ABD/PELVIS WO IV/ORAL CONTRAST 12/01/2024 5:06 AM FINDINGS: Bones/joints: No acute fracture or dislocation. Soft tissues: Unremarkable. 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 Vasculature: A retrievable infrarenal IVC filter. IMPRESSION IMPRESSION: 1. No acute fracture or dislocation. 2. 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 3. A retrievable infrarenal IVC filter. COMMENTS: For patients with an IVC filter, recommend assessment for a management plan for the patient's IVC filter. If there is no established management plan, recommend referral to an interventional clinician on a nonemergent basis for evaluation. THIS DOCUMENT HAS BEEN ELECTRONICALLY SIGNED BY GURU BUSTAMANTE MD Exam Ended: 12/01/24 05:16 Last Resulted: 12/01/24 05:36 PROCEDURE INFORMATION: Exam: CT Head Without Contrast Exam date and time: 12/01/2024 5:06 AM Age: 79 years old Clinical indication: Injury or trauma; Additional info: Significant trauma with possible severe neurologic injury or head pain -fall on anticoagulation with loss of consciousness, evaluate intracranial hemorrhage TECHNIQUE: Imaging protocol: Computed tomography of the head without contrast. Radiation optimization: All CT scans at this facility use at least one of these dose optimization techniques: automated exposure control; mA and/or kV adjustment per patient size (includes targeted exams where dose is matched to clinical indication); or iterative reconstruction. COMPARISON: CT C SPINE WO CONTRAST 12/01/2024 5:06 AM FINDINGS: Brain: There is mild small vessel disease. There is no evidence of acute parenchymal hemorrhage, extra-axial collection, or acute infarction. There is no mass effect, midline shift, or downward herniation. Cerebral ventricles: No ventriculomegaly. Paranasal sinuses: There is a moderate-sized right sphenoid sinus fluid level. There is mild additional paranasal sinus disease. Mastoid air cells: Visualized mastoid air cells are well aerated. Bones: Unremarkable. No acute fracture. Soft tissues: Unremarkable. IMPRESSION IMPRESSION: Mild small vessel disease. No evidence of acute intracranial process. THIS DOCUMENT HAS BEEN ELECTRONICALLY SIGNED BY LUKE TRAN MD Exam Ended: 12/01/24 05:21 Last Resulted: 12/01/24 05:27 PROCEDURE INFORMATION: Exam: CT Cervical Spine Without Contrast Exam date and time: 12/01/2024 5:06 AM Age: 79 years old Clinical indication: Injury or trauma; Additional info: Significant trauma with possible severe neurologic injury or neck pain, midline neck pain, evaluate c-spine fracture in the setting of fall TECHNIQUE: Imaging protocol: Computed tomography of the cervical spine without contrast. Radiation optimization: All CT scans at this facility use at least one of these dose optimization techniques: automated exposure control; mA and/or kV adjustment per patient size (includes targeted exams where dose is matched to clinical indication); or iterative reconstruction. COMPARISON: MRI CARDIAC, ADULT W WO CONTRAST 09/13/2023 9:12 AM FINDINGS: Bones/joints: No acute fracture. Normal alignment. There is [id number] multilevel degenerative disc disease. The spinal canal appears patent. Lungs: Lung apices are normal. Soft tissues: Unremarkable. IMPRESSION IMPRESSION: No acute findings. THIS DOCUMENT HAS BEEN ELECTRONICALLY SIGNED BY LUKE TRAN MD Exam Ended: 12/01/24 05:21 Last Resulted: 12/01/24 05:30 THIS REPORT CONTAINS FINDINGS THAT MAY BE CRITICAL TO PATIENT CARE. The findings and recommendations were verbally communicated via telephone conference with SUSIE Gillespie by Dr. Bustamante on 12/01/2024 at 5:54 AM EDT. The findings were acknowledged and understood. THIS DOCUMENT HAS BEEN ELECTRONICALLY SIGNED BY GURU BUSTAMANTE MD Signed by Guru Bustamante MD on 12/01/2024 05:54 Narrative & Impression PROCEDURE INFORMATION: Exam: CT Chest Without Contrast; Diagnostic Exam date and time: 12/01/2024 5:06 AM Age: 79 years old Clinical indication: Injury or trauma; Additional info: Eval fall for low back discomfort/pelvic discomfort for fracture - also fever consider infx - history of bladder cancer with indwelling tatum catheter, also consider intra-abdominal infection/inflammation, also hematuria consider kidney injury TECHNIQUE: Imaging protocol: Diagnostic computed tomography of the chest without contrast. 3D rendering (Not supervised by radiologist): MIP and/or 3D reconstructed images were created by the technologist. Radiation optimization: All CT scans at this facility use at least one of these dose optimization techniques: automated exposure control; mA and/or kV adjustment per patient size (includes targeted exams where dose is matched to clinical indication); or iterative reconstruction. COMPARISON: CR (CXR AP X-SWIFT GRID, CHEST, CXR AP GRID Crosswise) 12/01/2024 5:02 AM FINDINGS: Lungs: No consolidation, pulmonary edema, or lung mass. Pleural spaces: No pneumothorax. No pleural effusion. Heart: Small pericardial effusion containing simple fluid. Heart size is normal. Coronary arteries: Coronary artery calcifications. Lymph nodes: No mediastinal or axillary lymphadenopathy. 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 Aortic arch and descending thoracic aorta are normal in size. Bones/joints: No acute fracture. Soft tissues: Unremarkable. IMPRESSION IMPRESSION: 1. Small pericardial effusion containing simple fluid. 2. Coronary artery calcifications. 3. 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 Aortic arch and descending thoracic aorta are normal in size. PROCEDURE INFORMATION: Exam: CT Abdomen And Pelvis Without Contrast Exam date and time: 12/01/2024 5:06 AM Age: 79 years old Clinical indication: Injury or trauma; Additional info: Eval fall for low back discomfort/pelvic discomfort for fracture - also fever consider infx - history of bladder cancer with indwelling tatum catheter, also consider intra-abdominal infection/inflammation, also hematuria consider kidney injury TECHNIQUE: Imaging protocol: Computed tomography of the abdomen and pelvis without contrast. 3D rendering (Not supervised by radiologist): MIP and/or 3D reconstructed images were created by the technologist. Radiation optimization: All CT scans at this facility use at least one of these dose optimization techniques: automated exposure control; mA and/or kV adjustment per patient size (includes targeted exams where dose is matched to clinical indication); or iterative reconstruction. COMPARISON: CT ABDOMEN PELVIS WO(Adult) 03/13/2024 4:59 PM FINDINGS: Liver: Normal. No liver mass. Gallbladder and biliary ducts: No gallstones, gallbladder wall thickening or pericholecystic fluid. Common bile duct is not dilated. Pancreas: Unremarkable. No significant pancreatic duct dilation. Spleen: Normal. No splenomegaly. Adrenal glands: Normal. No adrenal mass. Kidneys and ureters: A 1 mm nonobstructing calculus in the upper pole of the right kidney and a 2 mm nonobstructing calculus in the upper pole of the left kidney. No hydronephrosis and no ureteral calculus on either side. Stomach and bowel: No evidence of bowel obstruction, ileus, diverticulitis or colitis. No significant mucosal thickening. Appendix: No CT evidence of appendicitis. Intraperitoneal space: No free air or fluid in the abdomen. No abnormal fluid collection. Vasculature: A retrievable infrarenal IVC filter. Lymph nodes: No abdominal lymphadenopathy. Urinary bladder: Small amount of air in the bladder. Mild bladder wall thickening and adjacent fat stranding, suggestive of cystitis. A 2 cm diverticulum arising from the right posterolateral wall of the bladder and a 3 cm diverticulum arising from the left posterolateral wall of the bladder. Reproductive: A Tatum catheter terminates in the penile urethra. The inflated balloon of the Tatum catheter is inside the penile urethra. Bones/joints: Compression fractures of indeterminate age involving L2 and L3 superior endplates and resulting in mild loss of height without retropulsion into the spinal canal. Moderate degenerative joint disease at L4-L5 level. 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 Duzi-[id number] degenerative joint disease in bilateral hip joints. Soft tissues: Unremarkable. IMPRESSION: 1. A Tatum catheter terminates in the penile urethra. The inflated balloon of the Tatum catheter is inside the penile urethra. The balloon needs to be deflated and the Tatum catheter needs to be repositioned. 2. Small amount of air in the bladder. Mild bladder wall thickening and adjacent fat stranding, suggestive of cystitis. A 2 cm diverticulum arising from the right posterolateral wall of the bladder and a 3 cm diverticulum arising from the left posterolateral wall of the bladder. Urology consult is recommended. 3. A 1 mm nonobstructing calculus in the upper pole of the right kidney and a 2 mm nonobstructing calculus in the upper pole of the left kidney. No hydronephrosis and no ureteral calculus on either side. 4. A retrievable infrarenal IVC filter. 5. Compression fractures of indeterminate age involving L2 and L3 superior endplates and resulting in mild loss of height without retropulsion into the spinal canal. Moderate degenerative joint disease at L4-L5 level. 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 Irtc-cm-tzzspzid degenerative joint disease in bilateral hip joints. COMMENTS: For patients with an IVC filter, recommend assessment for a management plan for the patient's IVC filter. If there is no established management plan, recommend referral to an interventional clinician on a nonemergent basis for evaluation. THIS DOCUMENT HAS BEEN ELECTRONICALLY SIGNED BY GURU BUSTAMANTE MD Exam Ended: 12/01/24 05:21 Last Resulted: 12/01/24 05:54 EXAM BRAIN MRI WITHOUT AND WITH CONTRAST - 12/01/2024 HISTORY Progressive cognitive decline. History of urothelial carcinoma COMPARISON CT head dated 12/01/2024. TECHNIQUE Multiplanar, multisequence MRI of the brain was performed before and after the administration of intravenous contrast. FINDINGS No acute infarct, acute intracranial hemorrhage, mass effect, midline shift, hydrocephalus, or extra-axial fluid collection. No abnormal enhancement is identified. Generalized volume loss with proportionate prominence of the ventricles and sulci. Patchy and more confluent areas of T2 prolongation in the subcortical and periventricular white matter are nonspecific and may reflect sequela of chronic microvascular ischemia. Incidentally noted is a small developmental venous anomaly at the left frontal lobe. Scattered mild paranasal sinus mucosal thickening and mucous retention cysts. Bilateral mastoid aircells are predominantly clear. IMPRESSION IMPRESSION 1. No acute intracranial abnormality. Specifically, no acute ischemic infarction. 2. Generalized volume loss with patchy and more confluent areas of white matter changes, nonspecific but likely related to chronic microvascular ischemic changes. Exam Ended: 12/01/24 14:26 Last Resulted: 12/01/24 15:29 Results Pending at Discharge: Lab Results Pending at Discharge: CULTURE, URINE, QUANTITATIVE STAT MEDICATION UPDATES AT DISCHARGE START taking these medications INSTRUCTIONS Linezolid 600 MG Tablet Commonly known as: Zyvox Take 1 Tablet by mouth in the morning and 1 Tablet before bedtime. Do all this for 6 days. CONTINUE taking these medications INSTRUCTIONS Acetaminophen 325 MG Caps Take 650 mg by mouth every 4 hours as needed for Pain (fever or pain). * B-12 1000 MCG Tabs Take by mouth daily. * Vitamin B-12 1000 MCG/15ML Liqd Take by mouth. Eliquis 2.5 MG Tabs Generic drug: Apixaban Take 1 Tablet by mouth in the morning and 1 Tablet before bedtime. EPINEPHrine (anaphylaxis) 0.3 MG/0.3ML Soaj injection USE DIRECTED Fludrocortisone Acetate 100 MCG Tablet Commonly known as: Florinef Take 1 Tablet by mouth in the morning. fluticasone 50 MCG/ACT nasal spray Commonly known as: Flonase Administer 2 Sprays into nostril in the morning. Hydrocortisone 10 MG Tablet Commonly known as: Cortef Take 20 mg in AM and 10 mg in afternoon Iron 325 (65 Fe) MG Tabs Take 1 Tablet by mouth in the morning. Lactobacillus Probiotic Tabs Take by mouth. Lidocaine 4 % Ptch Commonly known as: Aspercreme Place 1 patch on skin over affected area daily (leave on for 12 hours). Magnesium Chloride 64 MG Tabs Take by mouth. Magnesium Cl-Calcium Carbonate 71.5-119 MG Tbec Take 64 mg by mouth in the morning and 64 mg before bedtime. memantine 10 MG Tablet Commonly known as: Namenda Take 1 tab by mouth twice per day milk of magnesia 400 MG/5ML suspension Take 30 mL by mouth as needed for Constipation. Multi Adult Gummies Chew Take by mouth. * Mirabegron ER 25 MG Tb24 Commonly known as: Myrbetriq Take 1 Tablet by mouth in the morning. * Myrbetriq 25 MG Tb24 Generic drug: Mirabegron ER Take 1 Tablet by mouth in the morning. Nitroglycerin 0.4 MG Subl Commonly known as: Nitrostat Place 1 Tablet under the tongue every 5 minutes as needed for Pain, Chest. Nystatin-Triamcinolone 577319-6.1 UNIT/GM-% ointment Commonly known as: Mycolog Apply 1 Application topically to affected area in the morning and 1 Application before bedtime. omeprazole 20 MG Cpdr Commonly known as: PriLOSEC TAKE 1 CAPSULE BY MOUTH EVERY MORNING polyethylene glycol 3350 119 gram Powd Commonly known as: Miralax Take 119 g by mouth once. Senna 8.6 MG Caps Take by mouth. Solifenacin Succinate 5 MG Tablet Commonly known as: VESIcare Take 1 Tablet by mouth in the morning. Tab-A-Kika Tablet Take 1 Tablet by mouth in the morning. Trelegy Ellipta 200-62.5-25 MCG/ACT Aepb Generic drug: Zbvpgbsdzpt-Gmiaislgtkux-Ppdtrxmbbj Inhale 1 Puff by mouth every evening. vitamin C 500 MG Tabs Take 2 Tablets by mouth every morning. Vitamin C ER 1000-100 MG Tbcr Take by mouth. Vitamin D 125 MCG (5000 UT) Caps Take 1 capsule daily * This list has 4 medication(s) that are the same as other medications prescribed for you. Read thedirections carefully, and ask your doctor or other care provider to review them with you. STOP taking these medications Nitrofurantoin Monohydrate Macrocrystals 100 MG Capsule Commonly known as: Macrobid SCHEDULED FOLLOW-UP: Future Appointments Appt Date/Time Provider Department 12/05/2024 11:00 AM Chuy Batista MD Family [facility] [place] Demarc[facility]pedro Singh 12/06/2024 10:00 AM Nurse [place] [facility] Urology, [facility] 12/08/2024 1:00 PM URGENT CARE NURSE PRACTITIONER [facility] [address] Cardiac Studies, [facility] [address] 01/03/2025 3:00 PM Willi Smith Jr., MD Urology [facility] [place] 01/05/2025 11:30 AM MR1 [facility] 01/10/2025 9:30 AM Xavi Gramajo MD Hematology/Oncology [facility] 05/22/2025 10:45 AM Valdemar Prado MD Urology, [facility] Other Information Indwelling Devices: LINES ALL Duration Urethral Catheter Other (Comment) 1 day Vital Signs (last recorded): Most Recent Systolic BP: 118 mmHg (12/02/24 0730) Most Recent Diastolic BP: 66 mmHg (12/02/24 0730) Pulse: 68 (12/02/24 0730) Resp: 20 (12/02/24 0730) Most Recent Temperature: 35.78 C (12/02/24 0730) Weight: 99.2 kg (218 lb 11.1 oz) (12/02/24 0547) SpO2: 98 % (12/02/24 0730) Allergies: Chocolate flavoring agent (non-screening), Ioversol, Pembrolizumab, Chocolate, Clindamycin [clindamycin hcl], Cranberry, and Iodinated contrast media Activity: as tolerated Diet: renal diet and non dialysis diet Code Status: Full Code Condition on Discharge: stable Isolation status: None Cognition: normal HOSPITAL CONSULTS ORDERED: ADULT PHYSICAL THERAPY CONSULT IP ADULT OCCUPATIONAL THERAPY CONSULT IP CARE MANAGEMENT CONSULT IP UROLOGY CONSULT IP REFERRING PHYSICIAN: REF: SELF NO STRE[address] ADDRESS AVAILABLE PRIMARY CARE PROVIDER: PCP: Chuy Batista MD [address] [facility] / [place] [address] (office) [phone] (fax) Note: To contact a physician responsible for this patient’s hospital care, please call [facility] [phone]. I certify this patient is confined to the home and needs intermittent correction care, physical therapy and/or speech therapy, or continues to need occupational therapy. The patient is under my care and I have authorized services on this plan of care. The clinical findings of decrease in functional mobility secondary to decreased strength, decreased balance, and decreased endurance due to recent hospitalization and overall medical condition support the need for home health, and the patientdemonstrates a considerable and taxing effort when attempting to leave the home. The patient had a gwja-vz-cgsg encounter with an allowed provider type on 12/02 and the encounter was related to the primary reason for home health care. Under situations in which I am an acute/post acute facility physician who will not be following the patient's plan of care, I authorized services on this plan of care and I transfer the patient for plan of care certification to the primary care physician named below who will follow the patient and update the plan of care. Primary care physician Chuy Batista MD I spent a total of 45 minutes coordinating, documenting, and providing care for this patient excluding time spent in the performance of separately billed services or time spent by another provider/QHP. documented in this encounter Discharge Instructions * Discharge Instr - AVS* Olivier Crawley MD - 12/02/2024 11:13 AM EDT Discharge Date: 12/02/24 The information below provides you with the instructions and the list of medications you need to betaking following discharge from the hospital. If you have any questions, please ask before leaving. If you have questions after leaving, you can reach us at the numbers below. YOUR HOSPITAL PROVIDERS: Discharging Provider: Olivier Crawley MD Provider Department: Hospital Medicine To reach this Provider Wednesday through Wednesday (8:00 AM to 4:30 PM) for any questions or test results: Call [phone] For after-hours concerns: Call [phone] and have your provider paged, or the provider relations coordinator for the Department of Hospital Medicine paged. Please note, the discharging provider will not be able to provide you with any medications refills.Please discuss these with your primary care provider. Worsening Symptoms: If you have new symptoms, or your symptoms get worse, please contact your Discharge Provider or Primary Care Provider (PCP). If these providers are not available, [facility] can [facility] during their business hours. In an EMERGENCY situation: Call 911 or go to the nearest emergency room. A BRIEF SUMMARY OF YOUR HOSPITAL STAY: You came to the hospital with: complaint of fall , blood in urine Your main diagnosis at discharge was: Gross Hematuria most likely from traumatic tatum manipulation Fall likely related from Ambulatory dysfunction and possible sepsis , acute kidney injury , recent VRE UTI ( colonization Vs UTI) Operations & Procedures performed: tatum catheter exchanged Complications: none applicable Inpatient test results that are pending at discharge: Yes, urine culture. You or your doctor will be contacted if there are significant abnormalities with these tests. Advance Directive Documented: Advance Directive Does the Patient have an Advance Directive? No YOUR FOLLOW UP APPOINTMENTS: Primary Care Provider Information: PCP: Chuy Batista MD [address] [facility] / [place] [address] (office) [phone] (fax) An appointment was requested with your PCP (Chuy Batista MD) within 7 days. (Please take this form to this visit with your primary care physician.) You need the following studies in the future: BMP: date - in one week with your family doctor INSTRUCTIONS: Diet: renal non dialysis diet Activity: As tolerated Indwelling Urinary Bladder Catheter Care: Prevent infection. Always wash your hands before handling your catheter, bag or tubing. Cleaning your skin and tubing: Clean the skin near the catheter with soap and water. Wash your genital area from front to back. Wash the catheter tubing. Always wash the catheter in the direction away from your body. You will be told when and how to change your bag and tubing. Don’t try to remove the catheter by yourself. You may shower with the catheter in place. Emptying/Changing the bag Wash your hands. Remove the stopper on the bag. Drain the bag into the toilet or a measuring container. Don’t let the tip of the drainage tube touch anything, including your fingers. When the bag is empty, clean the tip of the drainage tube with an alcohol wipe. Clamp the tube. Clean the tip of the drainage tube with alcohol. Reinsert the tube into the pocket on the drainage bag/ Replace the stopper. Additional Instructions: - Call your primary care physician or seek medical attention if recurrent blood in urine, confusion, recurrent fall, fever, chills . To complete 6 more days of Linezolid 600 mg twice a day for enterococcus urinary tract infection documented in this encounter Progress Notes * [facility] - 12/02/2024 11:21 AM EDT PHARMACY DISCHARGE MEDICATION RECONCILIATION REVIEW [address] [address] Name: Branden High Location: [facility] 3B-3010/W Date: 12/02/2024 Time: 11:21 AM This discharge medication reconciliation was reviewed by a pharmacist and no corrections or interventions were required. * Jakob Weir RN - 12/01/2024 2:53 PM EDT Nursing Critical Care Response Note [facility]-[address] [address] Name: Branden High Date: 12/01/2024 Time: 2:53 PM Event Location: [facility], Unit Area: In the role of the Critical Response Nurse I was involved in the care of this patient. Method of notification to the critical care response nurse: Unit call/request for assistance Reason for notification or follow up: Other. Leaking tatum Observations/Interventions/Assessment: Called to the floor by RN for leaking tatum. Staff at the bedside made this RN aware that prior to admission the tatum was placed incorrectly causing trauma, the patient had also sustained a fall this admission causing further trauma to the catheter. This RN to the bedside at this time. Balloon deflated, tatum catheter advanced, balloon re-inflated with 10 mL. Tatum catheter then irrigated with 20mL sterile water. Patient experienced minor pressure, pulled back and flushed again, patient experienced relief and water can be seen draining from the catheter. Bladder scan confirmed 0mL in the bladder after. Outcome/Plan No need to follow as CRNs at this time. Please do not hesitate to reach out with any questions or concerns you may have. documented in this encounter H&P Notes * Diana Desai CRNP - 12/01/2024 9:30 AM EDT Images from the original note were not included. [facility] 3B-3010/W PRESENTING PROBLEM: fall Information gathered by chart review, nursing noted, ED physician, personally called patient's , Ivet. 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 Per , he was found wandering the house around early this morning and she put him back to bed. Later on in the early breastfeeding care specialist, she found him sitting on the floor. She believes he was trying to sit on the couch and didn't apply brakes to his Rollator and fell onto the floor. He was c/o right buttock pain. He has been in his usual state of health yesterday, except he felt chilled. A home health nurse came yesterday and changed his tatum catheter- immediately after she changed catheter he had hematuria which continued since yesterday. He has been on Macrobid since 11/29 d/t VRE UTI- urine can be found under lab tab and was scanned inon 11/24/24. In the ED, noted to be febrile. Labs remarkable for WBC 11.9, lactate 3.0--2.0, procal 0.13, Cr 1.7(baseline around 1.1-1.4). He had trauma scans- CT AP- tatum was in urethra. Tatum was removed and new one re-inserted. He was initially on bladder irrigation and urine cleared up. He was given CTX and NSS 500 ml bolus. Patient admitted to Hospital Medicine for further evaluation and management. Subjective Patient's past history, medications, and allergies were reviewed. Objective Physical Exam Most Recent Vital Signs: BP: 131 mmHg/74 mmHg (12/01/24 09) Pulse: 77 (12/01/24 09) Resp: 18 (12/01/24948) Temp: 35.89 C (04/18/25 0949) Temp Summary: Temp Min: 35.9 °C (96.6 °F) Max: 38.8 °C (101.8 °F) SpO2: 99 % (12/01/24 0515) O2 flow rate: Supplemental O2 Delivery: Room Air, None (12/01/24 5682) General: Pt in bed, alert, pleasantly confused at times. Head: Normocephalic, No masses, lesions, tenderness or abnormalities Eye Exam: EOMI, Conjunctiva are pink and non-injected, sclera clear Ears: External ears normal Oropharynx: mucous membranes moist without erythema or exudates Heart: regular rate & rhythm and + murmur appreciated Lungs: no respiratory distress, CTA, without wheeze, rhonchi or crackles Abdomen: + BS, soft, nontender, nondistended, no rebound tenderness or guarding - tatum catheter with some dried blood around tip of penis. Draining concentrated urine with somestreaks of blood. Lower Extremities: + dependent edema R>L ( reports this is his normal d/t DVT in right leg),no calf tenderness, + stasis changes noted Urethral Catheter Other (Comment) (Active) Number of days: 0 Peripheral Line Right Antecubital 20 Gauge (Active) Number of days: 0 Peripheral Line Right;Lower Arm 20 Gauge (Active) Number of days: 0 STUDIES: Encounter Orders Labs and other studies reviewed with pertinent findings noted below: CT HEAD/BRAIN WO CONTRAST Final Result PROCEDURE INFORMATION: Exam: CT Head Without Contrast Exam date and time: 12/01/2024 5:06 AM Age: 79 years old Clinical indication: Injury or trauma; Additional info: Significant trauma with possible severe neurologic injury or head pain -fall on anticoagulation with loss of consciousness, evaluate intracranial hemorrhage TECHNIQUE: Imaging protocol: Computed tomography of the head without contrast. Radiation optimization: All CT scans at this facility use at least one of these dose optimization techniques: automated exposure control; mA and/or kV adjustment per patient size (includes targeted exams where dose is matched to clinical indication); or iterative reconstruction. COMPARISON: CT C SPINE WO CONTRAST 12/01/2024 5:06 AM FINDINGS: Brain: There is mild small vessel disease. There is no evidence of acute parenchymal hemorrhage, extra-axial collection, or acute infarction. There is no mass effect, midline shift, or downward herniation. Cerebral ventricles: No ventriculomegaly. Paranasal sinuses: There is a moderate-sized right sphenoid sinus fluid level. There is mild additional paranasal sinus disease. Mastoid air cells: Visualized mastoid air cells are well aerated. Bones: Unremarkable. No acute fracture. Soft tissues: Unremarkable. IMPRESSION IMPRESSION: Mild small vessel disease. No evidence of acute intracranial process. THIS DOCUMENT HAS BEEN ELECTRONICALLY SIGNED BY LUKE TRAN MD CT C SPINE WO CONTRAST Final Result PROCEDURE INFORMATION: Exam: CT Cervical Spine Without Contrast Exam date and time: 12/01/2024 5:06 AM Age: 79 years old Clinical indication: Injury or trauma; Additional info: Significant trauma with possible severe neurologic injury or neck pain, midline neck pain, evaluate c-spine fracture in the setting of fall TECHNIQUE: Imaging protocol: Computed tomography of the cervical spine without contrast. Radiation optimization: All CT scans at this facility use at least one of these dose optimization techniques: automated exposure control; mA and/or kV adjustment per patient size (includes targeted exams where dose is matched to clinical indication); or iterative reconstruction. COMPARISON: MRI CARDIAC, ADULT W WO CONTRAST 09/13/2023 9:12 AM FINDINGS: Bones/joints: No acute fracture. Normal alignment. There is aglw-ms-eetuvlmx multilevel degenerative disc disease. The spinal canal appears patent. Lungs: Lung apices are normal. Soft tissues: Unremarkable. IMPRESSION IMPRESSION: No acute findings. THIS DOCUMENT HAS BEEN ELECTRONICALLY SIGNED BY LUKE TRAN MD CT CHEST WO CONTRAST Final Result Addendum (preliminary) 1 of 1 THIS REPORT CONTAINS FINDINGS THAT MAY BE CRITICAL TO PATIENT CARE. The findings and recommendations were verbally communicated via telephone conference with SUSIE Gillespie by Dr. Bustamante on 12/01/2024 at 5:54 AM EDT. The findings were acknowledged and understood. THIS DOCUMENT HAS BEEN ELECTRONICALLY SIGNED BY GURU BUSTAMANTE MD Final PROCEDURE INFORMATION: Exam: CT Chest Without Contrast; Diagnostic Exam date and time: 12/01/2024 5:06 AM Age: 79 years old Clinical indication: Injury or trauma; Additional info: Eval fall for low back discomfort/pelvic discomfort for fracture - also fever consider infx - history of bladder cancer with indwelling tatum catheter, also consider intra-abdominal infection/inflammation, also hematuria consider kidney injury TECHNIQUE: Imaging protocol: Diagnostic computed tomography of the chest without contrast. 3D rendering (Not supervised by radiologist): MIP and/or 3D reconstructed images were created by the technologist. Radiation optimization: All CT scans at this facility use at least one of these dose optimization techniques: automated exposure control; mA and/or kV adjustment per patient size (includes targeted exams where dose is matched to clinical indication); or iterative reconstruction. COMPARISON: CR (CXR AP X-SWIFT GRID, CHEST, CXR AP GRID [employer]) 12/01/2024 5:02 AM FINDINGS: Lungs: No consolidation, pulmonary edema, or lung mass. Pleural spaces: No pneumothorax. No pleural effusion. Heart: Small pericardial effusion containing simple fluid. Heart size is normal. Coronary arteries: Coronary artery calcifications. Lymph nodes: No mediastinal or axillary lymphadenopathy. 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 Aortic arch and descending thoracic aorta are normal in size. Bones/joints: No acute fracture. Soft tissues: Unremarkable. IMPRESSION IMPRESSION: 1. Small pericardial effusion containing simple fluid. 2. Coronary artery calcifications. 3. 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 Aortic arch and descending thoracic aorta are normal in size. PROCEDURE INFORMATION: Exam: CT Abdomen And Pelvis Without Contrast Exam date and time: 12/01/2024 5:06 AM Age: 79 years old Clinical indication: Injury or trauma; Additional info: Eval fall for low back discomfort/pelvic discomfort for fracture - also fever consider infx - history of bladder cancer with indwelling tatum catheter, also consider intra-abdominal infection/inflammation, also hematuria consider kidney injury TECHNIQUE: Imaging protocol: Computed tomography of the abdomen and pelvis without contrast. 3D rendering (Not supervised by radiologist): MIP and/or 3D reconstructed images were created by the technologist. Radiation optimization: All CT scans at this facility use at least one of these dose optimization techniques: automated exposure control; mA and/or kV adjustment per patient size (includes targeted exams where dose is matched to clinical indication); or iterative reconstruction. COMPARISON: CT ABDOMEN PELVIS WO(Adult) 03/13/2024 4:59 PM FINDINGS: Liver: Normal. No liver mass. Gallbladder and biliary ducts: No gallstones, gallbladder wall thickening or pericholecystic fluid. Common bile duct is not dilated. Pancreas: Unremarkable. No significant pancreatic duct dilation. Spleen: Normal. No splenomegaly. Adrenal glands: Normal. No adrenal mass. Kidneys and ureters: A 1 mm nonobstructing calculus in the upper pole of the right kidney and a 2 mm nonobstructing calculus in the upper pole of the left kidney. No hydronephrosis and no ureteral calculus on either side. Stomach and bowel: No evidence of bowel obstruction, ileus, diverticulitis or colitis. No significant mucosal thickening. Appendix: No CT evidence of appendicitis. Intraperitoneal space: No free air or fluid in the abdomen. No abnormal fluid collection. Vasculature: A retrievable infrarenal IVC filter. Lymph nodes: No abdominal lymphadenopathy. Urinary bladder: Small amount of air in the bladder. Mild bladder wall thickening and adjacent fat stranding, suggestive of cystitis. A 2 cm diverticulum arising from the right posterolateral wall of the bladder and a 3 cm diverticulum arising from the left posterolateral wall of the bladder. Reproductive: A Tatum catheter terminates in the penile urethra. The inflated balloon of the Tatum catheter is inside the penile urethra. Bones/joints: Compression fractures of indeterminate age involving L2 and L3 superior endplates and resulting in mild loss of height without retropulsion into the spinal canal. Moderate degenerative joint disease at L4-L5 level. 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 [id number]-[id number] degenerative joint disease in bilateral hip joints. Soft tissues: Unremarkable. IMPRESSION: 1. A Tatum catheter terminates in the penile urethra. The inflated balloon of the Tatum catheter is inside the penile urethra. The balloon needs to be deflated and the Tatum catheter needs to be repositioned. 2. Small amount of air in the bladder. Mild bladder wall thickening and adjacent fat stranding, suggestive of cystitis. A 2 cm diverticulum arising from the right posterolateral wall of the bladder and a 3 cm diverticulum arising from the left posterolateral wall of the bladder. Urology consult is recommended. 3. A 1 mm nonobstructing calculus in the upper pole of the right kidney and a 2 mm nonobstructing calculus in the upper pole of the left kidney. No hydronephrosis and no ureteral calculus on either side. 4. A retrievable infrarenal IVC filter. 5. Compression fractures of indeterminate age involving L2 and L3 superior endplates and resulting in mild loss of height without retropulsion into the spinal canal. Moderate degenerative joint disease at L4-L5 level. 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 [id number] degenerative joint disease in bilateral hip joints. COMMENTS: For patients with an IVC filter, recommend assessment for a management plan for the patient's IVC filter. If there is no established management plan, recommend referral to an interventional clinician on a nonemergent basis for evaluation. THIS DOCUMENT HAS BEEN ELECTRONICALLY SIGNED BY GURU BUSTAMANTE MD CT ABD/PELVIS WO IV/ORAL CONTRAST Final Result Addendum (preliminary) 1 of 1 THIS REPORT CONTAINS FINDINGS THAT MAY BE CRITICAL TO PATIENT CARE. The findings and recommendations were verbally communicated via telephone conference with SUSIE Gillespie by Dr. Bustamante on 12/01/2024 at 5:54 AM EDT. The findings were acknowledged and understood. THIS DOCUMENT HAS BEEN ELECTRONICALLY SIGNED BY GURU BUSTAMANTE MD Final PROCEDURE INFORMATION: Exam: CT Chest Without Contrast; Diagnostic Exam date and time: 12/01/2024 5:06 AM Age: 79 years old Clinical indication: Injury or trauma; Additional info: Eval fall for low back discomfort/pelvic discomfort for fracture - also fever consider infx - history of bladder cancer with indwelling tatum catheter, also consider intra-abdominal infection/inflammation, also hematuria consider kidney injury TECHNIQUE: Imaging protocol: Diagnostic computed tomography of the chest without contrast. 3D rendering (Not supervised by radiologist): MIP and/or 3D reconstructed images were created by the technologist. Radiation optimization: All CT scans at this facility use at least one of these dose optimization techniques: automated exposure control; mA and/or kV adjustment per patient size (includes targeted exams where dose is matched to clinical indication); or iterative reconstruction. COMPARISON: CR (CXR AP X-SWIFT GRID, CHEST, CXR AP GRID [facility]) 12/01/2024 5:02 AM FINDINGS: Lungs: No consolidation, pulmonary edema, or lung mass. Pleural spaces: No pneumothorax. No pleural effusion. Heart: Small pericardial effusion containing simple fluid. Heart size is normal. Coronary arteries: Coronary artery calcifications. Lymph nodes: No mediastinal or axillary lymphadenopathy. 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 Aortic arch and descending thoracic aorta are normal in size. Bones/joints: No acute fracture. Soft tissues: Unremarkable. IMPRESSION IMPRESSION: 1. Small pericardial effusion containing simple fluid. 2. Coronary artery calcifications. 3. 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 Aortic arch and descending thoracic aorta are normal in size. PROCEDURE INFORMATION: Exam: CT Abdomen And Pelvis Without Contrast Exam date and time: 12/01/2024 5:06 AM Age: 79 years old Clinical indication: Injury or trauma; Additional info: Eval fall for low back discomfort/pelvic discomfort for fracture - also fever consider infx - history of bladder cancer with indwelling tatum catheter, also consider intra-abdominal infection/inflammation, also hematuria consider kidney injury TECHNIQUE: Imaging protocol: Computed tomography of the abdomen and pelvis without contrast. 3D rendering (Not supervised by radiologist): MIP and/or 3D reconstructed images were created by the technologist. Radiation optimization: All CT scans at this facility use at least one of these dose optimization techniques: automated exposure control; mA and/or kV adjustment per patient size (includes targeted exams where dose is matched to clinical indication); or iterative reconstruction. COMPARISON: CT ABDOMEN PELVIS WO(Adult) 03/13/2024 4:59 PM FINDINGS: Liver: Normal. No liver mass. Gallbladder and biliary ducts: No gallstones, gallbladder wall thickening or pericholecystic fluid. Common bile duct is not dilated. Pancreas: Unremarkable. No significant pancreatic duct dilation. Spleen: Normal. No splenomegaly. Adrenal glands: Normal. No adrenal mass. Kidneys and ureters: A 1 mm nonobstructing calculus in the upper pole of the right kidney and a 2 mm nonobstructing calculus in the upper pole of the left kidney. No hydronephrosis and no ureteral calculus on either side. Stomach and bowel: No evidence of bowel obstruction, ileus, diverticulitis or colitis. No significant mucosal thickening. Appendix: No CT evidence of appendicitis. Intraperitoneal space: No free air or fluid in the abdomen. No abnormal fluid collection. Vasculature: A retrievable infrarenal IVC filter. Lymph nodes: No abdominal lymphadenopathy. Urinary bladder: Small amount of air in the bladder. Mild bladder wall thickening and adjacent fat stranding, suggestive of cystitis. A 2 cm diverticulum arising from the right posterolateral wall of the bladder and a 3 cm diverticulum arising from the left posterolateral wall of the bladder. Reproductive: A Tatum catheter terminates in the penile urethra. The inflated balloon of the Tatum catheter is inside the penile urethra. Bones/joints: Compression fractures of indeterminate age involving L2 and L3 superior endplates and resulting in mild loss of height without retropulsion into the spinal canal. Moderate degenerative joint disease at L4-L5 level. 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 [id number] degenerative joint disease in bilateral hip joints. Soft tissues: Unremarkable. IMPRESSION: 1. A Tatum catheter terminates in the penile urethra. The inflated balloon of the Tatum catheter is inside the penile urethra. The balloon needs to be deflated and the Tatum catheter needs to be repositioned. 2. Small amount of air in the bladder. Mild bladder wall thickening and adjacent fat stranding, suggestive of cystitis. A 2 cm diverticulum arising from the right posterolateral wall of the bladder and a 3 cm diverticulum arising from the left posterolateral wall of the bladder. Urology consult is recommended. 3. A 1 mm nonobstructing calculus in the upper pole of the right kidney and a 2 mm nonobstructing calculus in the upper pole of the left kidney. No hydronephrosis and no ureteral calculus on either side. 4. A retrievable infrarenal IVC filter. 5. Compression fractures of indeterminate age involving L2 and L3 superior endplates and resulting in mild loss of height without retropulsion into the spinal canal. Moderate degenerative joint disease at L4-L5 level. 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 Xqub-sw-[id number] degenerative joint disease in bilateral hip joints. COMMENTS: For patients with an IVC filter, recommend assessment for a management plan for the patient's IVC filter. If there is no established management plan, recommend referral to an interventional clinician on a nonemergent basis for evaluation. THIS DOCUMENT HAS BEEN ELECTRONICALLY SIGNED BY GURU BUSTAMANTE MD XR CHEST 1 VIEW Final Result PROCEDURE INFORMATION: Exam: XR Chest Exam date and time: 12/01/2024 5:02 AM Age: 79 years old Clinical indication: Other: Trauma TECHNIQUE: Imaging protocol: Radiologic exam of the chest. Views: 1 view. COMPARISON: DX XR CHEST 1 VIEW 09/10/2023 4:31 PM FINDINGS: Lungs: No consolidation or pulmonary edema. Pleural spaces: No pleural effusion. No pneumothorax. Heart/Mediastinum: Cardiomediastinal silhouette is normal in size. Vasculature: Atherosclerotic calcifications in the thoracic aorta. Bones/joints: No acute fractures. IMPRESSION IMPRESSION: No acute findings. THIS DOCUMENT HAS BEEN ELECTRONICALLY SIGNED BY GURU BUSTAMANTE MD XR PELVIS 1 VIEW Final Result PROCEDURE INFORMATION: Exam: XR Pelvis Exam date and time: 12/01/2024 5:09 AM Age: 79 years old Clinical indication: Other: Trauma TECHNIQUE: Imaging protocol: Radiologic exam of the pelvis. Views: 1 or 2 view. COMPARISON: CT ABD/PELVIS WO IV/ORAL CONTRAST 12/01/2024 5:06 AM FINDINGS: Bones/joints: No acute fracture or dislocation. Soft tissues: Unremarkable. 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 Vasculature: A retrievable infrarenal IVC filter. IMPRESSION IMPRESSION: 1. No acute fracture or dislocation. 2. 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 3. A retrievable infrarenal IVC filter. COMMENTS: For patients with an IVC filter, recommend assessment for a management plan for the patient's IVC filter. If there is no established management plan, recommend referral to an interventional clinician on a nonemergent basis for evaluation. THIS DOCUMENT HAS BEEN ELECTRONICALLY SIGNED BY GURU BUSTAMANTE MD MRI BRAIN W WO CONTRAST (Results Pending) Results for orders placed or performed during the hospital encounter of 12/01/24 COMPREHENSIVE METABOLIC PANEL Result Value Ref Range BUN 16 6 - 20 mg/dL CREATININE 1.7 (H) 0.6 - 1.2 mg/dL EGFR 42 (L) >=60 mL/min SODIUM 141 135 - 146 mmol/L POTASSIUM 4.0 3.5 - 5.1 mmol/L CHLORIDE 103 98 - 107 mmol/L CO2 22 22 - 32 mmol/L ANION GAP 16 (H) 7 - 15 mmol/L GLUCOSE 99 70 - 120 mg/dL Albumin 3.7 (L) 3.8 - 5.0 g/dL AST 38 10 - 50 U/L Alkaline Phosphatase 111 35 - 130 U/L Bilirubin, Total 0.8 <=1.2 mg/dL CALCIUM 9.0 8.4 - 10.2 mg/dL Protein 6.5 6.0 - 8.3 g/dL ALT 10 10 - 50 U/L ETHANOL, MEDICAL Result Value Ref Range Ethanol Negative Negative LACTATE,WHOLE BLOOD Result Value Ref Range Lactate 3.1 (H) 0.4 - 2.0 mmol/L PT INR Result Value Ref Range Prothrombin Time 15.7 (H) 11.6 - 15.2 seconds INR 1.2 0.8 - 1.2 URINALYSIS, REFLEX TO MICROSCOPIC Result Value Ref Range Color, Urine Red (A) Light Yellow, Yellow, Dark Yellow Clarity, Urine Cloudy (A) Clear Glucose, Urine Negative Negative mg/dL Bilirubin, Urine Small (A) Negative Ketone, Urine Trace (A) Negative mg/dL Specific Boykin, Urine 1.012 1.003 - 1.030 Blood, Urine Large (A) Negative pH, Urine 6.0 5.0 - 7.5 Units Protein, Urine 100 (A) Negative mg/dL Urobilinogen, Urine 1.0 0.2, 1.0 mg/dL Nitrite, Urine Positive (A) Negative Esterase, Urine Moderate (A) Negative TYPE AND SCREEN Result Value Ref Range ABO A Rh Positive Red Blood Cell Antibody Screen Negative Specimen Expiration Date 12/04/2024 23:59 BNP, NT-PRO Result Value Ref Range BNP, NT-Pro 477 (H) <300 pg/mL TROPONIN T, HIGH SENSITIVITY Result Value Ref Range Troponin T, High Sensitivity 44 (H) <=22 ng/L RESPIRATORY PATHOGEN PANEL, PCR Result Value Ref Range Adenovirus Negative Negative Coronavirus 229E Negative Negative Coronavirus HKU1 Negative Negative Coronavirus NL63 Negative Negative Coronavirus OC43 Negative Negative Coronavirus SARS-CoV-2 Negative Negative Human Metapneumovirus Negative Negative Rhinovirus/Enterovirus Negative Negative Influenza A Negative Negative Influenza B Negative Negative Parainfluenza Virus 1 Negative Negative Parainfluenza Virus 2 Negative Negative Parainfluenza Virus 3 Negative Negative Parainfluenza Virus 4 Negative Negative Respiratory Syncytial Virus Negative Negative Bordetella pertussis Negative Negative Chlamydia pneumoniae Negative Negative Mycoplasma pneumoniae Negative Negative Bordetella parapertussis Negative Negative PROCALCITONIN Result Value Ref Range Procalcitonin 0.13 (H) <0.10 ng/mL CBC Result Value Ref Range WBC 11.99 (H) 4.00 - 10.80 K/uL RBC 4.51 4.50 - 5.25 M/uL HGB 13.3 (L) 14.0 - 16.8 g/dL HCT 40.3 40.0 - 48.4 % MCV 89.4 82.0 - 99.5 fL MCH 29.5 27.0 - 34.0 pg MCHC 33.0 32.0 - 36.0 g/dL RDW 15.9 11.5 - 15.5 % PLT 233 140 - 400 K/uL MPV 9.4 6.6 - 11.1 fL NRBCs 0 <=0 /100 WBCs DIFFERENTIAL, AUTOMATED Result Value Ref Range WBC 11.99 (H) 4.00 - 10.80 K/uL Neutrophils % 79.2 (H) 40.0 - 75.0 % Lymphocytes % 12.5 (L) 18.0 - 42.0 % Monocytes % 7.0 1.0 - 11.0 % Eosinophils % 0.5 0.0 - 6.0 % Basophils % 0.3 0.0 - 2.0 % Immature Granulocytes % 0.5 0.0 - 2.0 % Absolute Neutrophils 9.49 (H) 1.80 - 7.70 K/uL Absolute Lymphocytes 1.50 1.00 - 4.80 K/ul Absolute Monocytes 0.84 0.00 - 1.10 K/uL Absolute Eosinophils 0.06 0.00 - 0.70 K/uL Absolute Basophils 0.04 0.00 - 0.20 K/uL Absolute Immature Granulocytes 0.06 0.00 - 0.20 K/uL ABO/RH Result Value Ref Range ABO A Rh Positive MICROSCOPIC EXAM, URINE Result Value Ref Range RBC, Urine 50+ (A) 0 - 2 /HPF WBC, Urine 20-29 (A) 0 - 2 /HPF Bacteria, Urine 0-25 0 - 25 /HPF TROPONIN T, HIGH SENSITIVITY Result Value Ref Range Troponin T, High Sensitivity 42 (H) <=22 ng/L LACTATE Result Value Ref Range Lactate 2.0 0.4 - 2.0 mmol/L GLUCOSE METER, POINT OF CARE Result Value Ref Range Glucose - POCT 101 70 - 120 mg/dL *Note: Due to a large number of results and/or encounters for the requested time period, some results have not been displayed. A complete set of results can be found in Results Review. EKG- NSR, ventricular rate [address] changes inferior leads Assessment and Plan IMPRESSION: Principal Problem: Sepsis with acute renal failure (HCC) Active Problems: Adrenal insufficiency (HCC) History of DVT in adulthood History of pulmonary embolism Chronic anticoagulation Mild cognitive impairment Urothelial carcinoma of bladder (HCC) S/P IVC filter Enterococcus UTI Fall at home Ambulatory dysfunction Resolved Problems: * No resolved hospital problems. 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 Noted to have hematuria after tatum catheter exchanged yesterday by HH nurse. Noted to be malpositioned on CT imaging. ED removed and exchanged catheter- had some bladder irrigation with improvement of hematuria. Currently being tx for VRE UTI with Macrobid. Noted to be febrile in ED. Labs remarkable for leukocytosis, VIOLETA, lactic acidosis. Patient being admitted for sepsis with VIOLETA 2/2 complicated UTI and malpositioned tatum catheter Spoke to [facility] Infectious Disease Pharmacist- advises Linezolid 600 mg q12 hours based on prior cx Will add on CTX for now- de-escalate as warranted. F/u blood and urine cx Trend fever curve VIOLETA- monitor kidney function. Avoid nephrotoxic agents. I&O's For falls and ambulatory dysfunction, consult PT/OT and CM. would like him to have MRI Brain w/wo contrast that his neurologist had recommended d/t progressive cognitive declined. This has been ordered. Chronic conditions AI- [employer] Florinef and Cortef Asthma- [employer] inhalers PE/DVT- will continue Eliquis- has hematuria seems to have mostly resolved. Will check Hgb/Hct later this afternoon to ensure stable. Cognitive impairment- [employer] Namenda Vesicare and Myrbetriq not on formulary. PHARMACOLOGIC VTE PROPHYLAXIS:Apixaban Eliquis Tabs CODE STATUS: Full Code EXPECTED DISCHARGE DATE: 12/03/2024 I spent a total of 85 minutes coordinating, documenting, and providing care for this patient excluding time spent in the performance of separately billed services or time spent by another provider/QHP. Patient's case and plan of care discussed with my attending, JOSÉ ANTONIO Madrigal Cosigned by Nate Graff MD at 12/01/2024 6:52 PM EDT Associated attestation - Nate Graff MD - 12/01/2024 6:52 PM EDT I have reviewed the advanced practitioner's documentation on the date of service referenced in note, and I agree with, and take responsibility for the plan of care. I spent a total of 20 minutes coordinating, documenting, and providing care for this patient excluding time spent in the performance of separately billed services or time spent by another provider/QHP. documented in this encounter Consult Notes * Andrew Yoo, PT - 12/02/2024 8:15 AM EDTAssociated Order(s): ADULT PHYSICAL THERAPY CONSULT IP GENERAL EVALUATION - Physical Therapy [address] [id number] Name: Branden High Location: [facility] [id number] Date: 12/02/2024 Time: 814 Branden High is a/an 79 year old male. Patient Status: Inpatient Insurance: Payor: [facility]) MEDICARE ADVANTAGE Plan: [employer] PPO Product Type:*No Product type* Patient Seen: at bedside, nursing cleared patient for therapy Patient Identified By: Name, ID Band and Date Diagnosis: Gait dysfunction, s/p fall, Sepsis with acute renal failure, UTI (12/02/24814) Status of treatment: Evaluation completed (12/02/24814) Orders: PT evaluation and treatment (12/02/24814) Weight Bearing Status: Weight bearing as tolerated;RUE;LUE;RLE;LLE (12/02/24814) Total Treatment Time--free text: 46 minutes (12/02/24814) HPI: Per chart review: "Patient with PMHX: urothelial carcinoma of bladder (currently on surveillance), 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 Per , he was found wandering the house around early this morning and she put him back to bed. Later onin the early breastfeeding care specialist, she found him sitting on the floor. She believes he was trying to sit on the couch and didn't apply brakes to his Rollator and fell onto the floor. He was c/o right buttock pain. He has been in his usual state of health yesterday, except he felt chilled. A home health nurse came yesterday and changed his tatum catheter- immediately after she changed catheter he had hematuria which continued since yesterday. He has been on Macrobid since 11/29 d/t VRE UTI- urine can be found under lab tab and was scanned inon 11/24/24. In the ED, noted to be febrile. Labs remarkable for WBC 11.9, lactate 3.0--2.0, procal 0.13, Cr 1.7(baseline around 1.1-1.4). He had trauma scans- CT AP- tatum was in urethra. Tatum was removed and new one re-inserted. He was initially on bladder irrigation and urine cleared up. He was given CTX and NSS 500 ml bolus. Patient admitted to Hospital Medicine for further evaluation and management." Past Medical History: Past Medical History: Diagnosis Date Adrenal insufficiency (HCC) 04/23/2015 Allergic rhinitis 2007 Chronic anticoagulation 04/13/2017 Chronic rhinitis 2007 Chronic sinusitis 2006 Deviated nasal septum 2006 History of DVT in adulthood 08/20/2014 History of pulmonary embolism 04/2014 Kidney disease, chronic, stage III (GFR 30-59 ml/min) 10/21/2015 Per CKD protocol #1 ANDRZEJ (obstructive sleep apnea) 08/19/2018 Prostate cancer (HCC) Past Surgical History: Past Surgical History: Procedure Laterality Date CATARACT SURGERY,COMPLEX Bilateral REMOVAL OF APPENDIX Subjective: Pt expressed willingness to participate in PT consult. Social History/Disposition Lives with: Spouse/significant other (12/02/24814) Assistance available: Yes (from spouse) (12/02/24 3877) Dwelling Type: Multi-story home (12/02/24814) Entry Steps: 5 (w/ 1 rail) (12/02/24814) Inside Steps: 11-15 (to basement and 2nd floor w/ 1 rail) (12/02/24814) Bedroom Location: 2nd floor (but pt reports hospital bed on 1st floor) (12/02/24814) Bath location: 2nd floor full bath (per chart review; pt reports bathroom on 1st floor but unsure of what type (pt is an inconsistent historian)) (12/02/24814) Prior Level of Function Reported by: Patient;Chart review (12/02/24814) Ambulation: Ambulatory with device (12/02/24814) Ambulatory Device: Rollator (12/02/24814) Devices at home: Rollator;Hospital bed (12/02/24814) Observations Consciousness: Alert;Confused (12/02/24814) Orientation: Person (partially oriented to place (unable to identify location as hospital but stated 3rd floor); partially oriented to situation) (12/02/24814) Psychosocial: Patient can communicate basic needs;Patient can converse in a social setting (12/02/24814) Other Findings: Yes (12/02/24814) Findings: Light touch sensation;Coordination;Tone (12/02/24814) Light Touch Sensation Results: Intact;LUE;RUE;LLE;RLE (12/02/24814) Coordination Results: Intact;LUE;RUE;LLE;RLE (controlled and isolated against gravity B UE and B LE) (12/02/24814) Tone Results: Normal;LUE;RUE;LLE;RLE (12/02/24814) Sitting Posture: Forward head;Rounded shoulders (12/02/24814) Standing Posture: Forward head;Rounded shoulders (12/02/24814) Safety Awareness: Patient can communicate basic needs;Needs cueing supervision (12/02/24814) Oxygen: Room air (12/02/24814) Pain: No complaints of pain AROM B UE and B LE WFL Strength B UE and B LE 4 to 4+/5 P.T. Bed Mobility Roll (Right): Modified Independent (12/02/24814) Supine-Sit: Supervision (12/02/24814) Transfers Sit-Stand: Minimal Assistance (min A 1 at bed, supervision 1 at recliner) (12/02/24814) Stand-Sit: Contact Guard (12/02/24814) Bed - Chair: Minimal Assistance (12/02/24814) Ambulation: Distance ambulated (feet): 108 Assistive Device: rollator Assist: Contact Guard 1 Gait Characteristics: Decreased speed, Decreased step length, Unsteady, mild trunk sway, not safe to transfer or amb w/o assistance. Stair Training: Number of stairs: 5 Number of handrails: 1 rail and hand hold assist and trunk support Level of Assistance: min to mod A 1 Balance Sit (Static): Good (12/02/24814) Sit (Dynamic): Good - (12/02/24814) Stand (Static): Fair (12/02/24814) Stand (Dynamic): Fair - (12/02/24814) Patient and or Family Goal(s): to get well and to return home Patient Education Safety Awareness: Patient can communicate basic needs;Needs cueing supervision (12/02/24814) Topic of Education: Safety with mobility, Goals/plan of care, Stair training, and Fall prevention and instructed pt and pt's nurse that at current level of function if discharged home, pt is to stay on 1st floor at all time and use a rollator or rolling walker (except on stairs which are not large enough for all 4 legs of walker to fit on each stair) and have assist of 1 at all times for amb and transfers from a caregiver who can physically assist pt Method of Education: Verbal discussion and explanation provided to pt: had reduced level of understanding due to confusion/cognitive impairment Demonstrated the above task to pt: had reduced level of understanding due to confusion/cognitive impairment Treatment Provided: Therapeutic Activities 13 minutes: bed mobility training transfer training Balance activity to improve strength, endurance and standing tolerance/safety: static standing w/ rolling walker and supervision 1, static standing w/ 1 hand on rail and CGA to supervision 1 Gait Training 18 minutes: gait training with rollator stair training Evaluation Moderate Complexity 15 minutes - 60212: Patient was cooperative, pleasant, and alert during treatment session. Moderate complexity evaluation performed and 1-2 personal factors or comorbidities were identified that will impact plan of care, including multiple steps at home, cognitive status, and cardiac history. Patient presents with limitations in strength, bed mobility, transfers, gait, elevations, balance, endurance, and safety, which will impact plan of care. These limitations will be addressed by the goals set for this patient. Alarm Status Patient positioned in: Bed (brakes locked, foot rest elevated, tatum secure) (12/02/24814) With: Pressure pad alarm intact and functioning and call cooney in reach (12/02/24814) Goals (if not discharged today or tomorrow): Demonstrate Bed Mobility with: Supine to Sit: modifiedindependent (with device or slow) Sit to supine: modified independent (with device or slow) Demonstrate Transfers with: Sit to stand: modified independent (with device or slow) Stand to sit: modified independent (with device or slow) Bed to chair: supervision (with cues) Chair to bed: supervision (with cues) Demonstrate Ambulation: assistive device: rollator or rolling walker distance in feet: 200 level of assistance on level surface: supervision (with cues) Demonstrate Stairclimbing: Number of steps: 5 or greater, 1 rail, and Level of Assistance: contact guard to minimal assistance (pt does 75%) Increase Safety: w/ functional mobility Time Frame: 10 sessions Assessment: Bloody drainage noted from tatum catheter site; informed Dr. Crawley, charge nurse and pt'snurse. Pt presents w/ deficits in strength, balance, endurance and functional mobility w/ pt requiring Curtis 1 to CGA 1 for transfers, min A 1 to amb level surface w/ rolling walker and mod to min A 1 for stair ambulation, AM PAC 17 and is not safe to transfer or amb without assistance. At discharge would consider post acute care services which may include home health, correction, outpatient therapy or in pt rehab. The level of care will be determined in collaboration with the patient, family/caregiver and care team members. Skilled PT at [facility] is warranted to address deficits in strength, endurance, balance and functional mobility and to continue to assess discharge needs. Deficits requiring P.T. treatment needs: Safety;Mobility;Balance (12/02/24814) Equipment Needs: Equipment needs: Rolling walker;Rollator (rolling walker or rollator) (04/19/25 0815) Treatment Plan: Bed mobility training, Transfer training, Gait training, Elevation training, Strengthening exercises: B LE, Balance activities, and Educate on safety with functional mobility Anticipated Frequency (on eval): 1 to 3 days per week (12/02/24 0815) AM PAC Score with Stairs: 17 * Demetra Rosen, Integration Specialist - 12/01/2024 4:21 PM EDTAssociated Order(s): CARE MANAGEMENT CONSULT IP CARE MANAGEMENT - ADULT INITIAL SCREENING [address] [id number] Name: Branden High Location: [facility] 3B-3010/W Date: 12/01/2024 Time: 4:21 PM Discussed patient with the interdisciplinary care team. This Sagger Maker performed a chart review and met with patient Ivet via phone to complete admission screen and assessed needs for transition planning. The healthcare facility administrator role and services were explained and emotional support was provided. Chief Complaint: Fall and Hematuria Prior Living Arrangements What was your living situation prior to admission/observation?: With Spouse (12/01/241619) Living Quarters: House (12/01/241619) Number of steps to enter living quarters:: 6 (12/01/241619) Do you have serious difficulty walking or climbing stairs? (5 years old or older): Yes (" we are working on making me better on the stairs") (12/01/24 1007) History of falling: Yes (12/01/24 0957) Prior Level of Functioning Describe the patient's ability prior to admission/observation to perform ADLs: Requires assistance (12/01/241619) Requires assistance with: Dressing;Toileting;Bathing;Grooming (12/01/24 162) Describe the patient's mobility status prior to admission: Patient ambulates independently (12/01/24 162) Patient uses assistive device: Yes (12/01/241619) If yes, choose:: Walker (12/01/241619) Caregiver Information Emergency Contacts None on File Other Contacts Name Relation Home Work Mobile IVET HIGH Spouse [phone] Risk Stratification/Psychosocial/Care Gaps Risk Stratification Psycho Social / Medical Concerns Identified: Adjustment to illness/injury (12/01/241619) Accessed [facility] to connect patients to social care resources: No (12/01/241619) Readmission Risk Score: 17.72 (12/01/24 1601) AM-PAC Score With Stairs : 17 (12/01/24 0959) Prior to Admission Services Services Prior to Admission [employer] Services (Services received within the last 30 days with exception, Psych within last two years): H2020 (12/01/241619) List All Provider/Service Name: [facility] (12/01/241619) Agency contacted: No (12/01/241619) [place] Dept[employer] of Aging (PDA) Waiver Program: N/A (12/01/241619) [employer] Transportation (Services received within the last 30 days): Family/Friends Personal Vehicle (12/01/241619) Outpatient Sagger Maker: No care steam crane operator to display Patient/Family Expectations: to get well and return home with services Pt lives with in a two story home with 6 steps to enter. Pt stays on the first floor. Pt requires assistance with ADL's which helps with. Pt uses a walker and a rollator to assist with ambulation. Pt also has a hospital bed and a bsc. Pt is not on oxygen at baseline. said he use to be on a cpap but is not any more. Pt is active with [facility]. Pt would prefer to take patient home she is declining a SNF stay. Pt transports to appointments and will transport at discharge. For further screening information, please refer to the Care Management flow document. * Zuly Schofield, OTR/L - 12/01/2024 2:00 PM EDTAssociated Order(s): ADULT OCCUPATIONAL THERAPY CONSULT IP Attempted OT consult at 1600. Pt off unit at MRI for imaging. Consult will be attempted at a later time or date dependent on schedule, pt tolerance, and pt medical status. * Jimena Claros PA-C - 12/01/2024 12:36 PM EDTAssociated Order(s): UROLOGY CONSULT IP CONSULT - Urology [facility] [facility] [place] [id number] Name: Branden High Location: [facility] 3B-3010/W Date: 12/01/2024 Time: 12:36 PM REQUESTING SERVICE: Hospitalist PRESENTING PROBLEM: Hematuria, history of urothelial carcinoma, and UTI HPI: Branden High is a 79 y/o M with PMHx as stated below for consultation for hematuria, history of urothelial carcinoma, and UTI. Patient presented to [facility] today s/p fall. He is seen at bedside this afternoon. He noted he is feeling very confused and anxious. He stated "I have never felt like this before." He is oriented to person place and year. He notice his penis is sore but is unsure wh y. He noted he has had hematuria today. He is requesting help with eating lunch. Dr. Graff was seen at bedside, Tatum catheter exchange in ED. per hospitalist note, Tatum catheter was exchanged yesterday by home nursing. Bladder cancer: Diagnosed Apr 2023 high grade. Last cysto Nov 2023 in [place] Prostate cancer: XRT performed for CAP. "GG4 prostate cancer s/p EBRT completed in 2016" PSA Results: Lab Results Component Value Date/Time PSA - [facility] 0.05 04/03/2024 09:59 AM PSA - [facility] 7.30 (H) 02/21/2016 02:54 PM PSA - [facility] 4.19 (H) 02/14/2015 08:29 AM PSA-OUTSIDE LAB <0.010 12/03/2017 12:00 AM PSA-OUTSIDE LAB <0.010 11/18/2016 12:00 AM Urinary incontinence: Managed with indwelling Tatum due to sacral ulcers. Previous HoLEP. PAST MEDICAL HISTORY: Past Medical History: Diagnosis Date Adrenal insufficiency (HCC) 04/23/2015 Allergic rhinitis 2007 Chronic anticoagulation 04/13/2017 Chronic rhinitis 2007 Chronic sinusitis 2007 Deviated nasal septum 2006 History of DVT in adulthood 08/20/2014 History of pulmonary embolism 04/2014 Kidney disease, chronic, stage III (GFR 30-59 ml/min) 10/21/2015 Per CKD protocol #1 ANDRZEJ (obstructive sleep apnea) 08/19/2018 Prostate cancer (HCC) PAST SURGICAL HISTORY: Past Surgical History: Procedure Laterality Date CATARACT SURGERY,COMPLEX Bilateral REMOVAL OF APPENDIX FAMILY HISTORY: Family History Problem Relation Name Age of Onset Cancer Mother Cancer Father prostat Cancer Brother prostat SOCIAL HISTORY: Social History Tobacco Use Smoking status: Never Passive exposure: Never Smokeless tobacco: Never Tobacco comments: passive smoke from at home Vaping Use Vaping status: Never Used Substance Use Topics Alcohol use: No Comment: 1 beer per year Drug use: No ALLERGIES: Chocolate flavoring agent (non-screening), Ioversol, Pembrolizumab, Chocolate, Clindamycin [clindamycin hcl], Cranberry, and Iodinated contrast media REVIEW OF SYSTEMS: Constitutional: (+) fever Abdominal/GI: (-) abdominal pain Male : see HPI Neurology: (+) anxious and short term memory PHYSICAL EXAMINATION: Most Recent Vital Signs: BP: 93 mmHg/73 mmHg (12/01/24 1103) Pulse: 77 (12/01/24 1103) Resp: 20 (12/01/24 1103) Temp: 36.28 C (12/01/24 1103) Temp Summary: Temp Min: 35.9 °C (96.6 °F) Max: 38.8 °C (101.8 °F) SpO2: 99 % (12/01/24 1103) O2 flow rate: Supplemental O2 Delivery: Room Air, None (12/01/24 1103) General: alert, awake, oriented to person, place, and year, anxious Head: Normocephalic Heart: regular rate Chest: clear to auscultation bilaterally, normal respiratory effort Abdomen: soft, non-tender, non-distended : Tatum catheter in place with darker yellow urine with few blood clots LAB LINKS: Labs reviewed as indicated below: CBC Lab Results Component Value Date/Time WBC 11.99 (H) 12/01/2024 05:10 AM WBC 5.82 09/01/2019 02:02 PM HGB 13.3 (L) 12/01/2024 05:10 AM HGB 10.8 (A) 11/06/2022 12:00 AM HGB 14.2 09/01/2019 02:02 PM HCT 40.3 12/01/2024 05:10 AM HCT 43.6 09/01/2019 02:02 PM PLT 233 12/01/2024 05:10 AM PLT 208 09/01/2019 02:02 PM BMP Lab Results Component Value Date/Time NA 141 12/01/2024 05:10 AM NA 143 09/01/2019 02:02 PM POTASSIUM 4.0 12/01/2024 05:10 AM POTASSIUM 3.8 06/10/2023 12:00 AM POTASSIUM 4.6 09/01/2019 02:02 PM CL 103 12/01/2024 05:10 AM CL 106 09/01/2019 02:02 PM CO2 22 12/01/2024 05:10 AM CO2 29 09/01/2019 02:02 PM BUN 16 12/01/2024 05:10 AM BUN 22 (H) 09/01/2019 02:02 PM CREAT 1.7 (H) 12/01/2024 05:10 AM CREAT 1.54 (A) 06/10/2023 12:00 AM CREAT 1.7 (H) 09/01/2019 02:02 PM Ca, Mg, Phos Lab Results Component Value Date/Time CA 9.0 12/01/2024 05:10 AM CA 9.0 09/01/2019 02:02 PM MG 2.3 09/12/2023 05:01 AM PHOSPHORUS 3.9 09/11/2023 11:57 PM PHOSPHORUS 3.1 02/22/2019 07:58 AM Hepatic Function Panel Lab Results Component Value Date/Time TBIL 0.8 12/01/2024 05:10 AM TBIL 0.3 09/01/2019 02:02 PM ALKP 111 12/01/2024 05:10 AM ALKP 73 09/01/2019 02:02 PM AST 38 12/01/2024 05:10 AM AST 18 09/01/2019 02:02 PM ALT 10 12/01/2024 05:10 AM ALT 21 09/01/2019 02:02 PM PROT 6.5 12/01/2024 05:10 AM PROT 6.5 09/01/2019 02:02 PM Coags Lab Results Component Value Date/Time INR 1.2 12/01/2024 05:40 AM Lactic acid Lab Results Component Value Date/Time LAC 2.0 12/01/2024 07:03 AM LAC 3.1 (H) 12/01/2024 05:10 AM UA 12/01/24 Component Latest Ref Rng 12/01/2024 Color, Urine Light Yellow, Yellow, Dark Yellow Red ! Clarity, Urine Clear Cloudy ! Glucose, Urine Negative mg/dL Negative Bilirubin, Urine Negative Small ! Ketone, Urine Negative mg/dL Trace ! Specific Boykin, Urine 1.003 - 1.030 1.012 Blood, Urine Negative Large ! pH, Urine 5.0 - 7.5 Units 6.0 Protein, Urine Negative mg/dL 100 ! Urobilinogen, Urine 0.2, 1.0 mg/dL 1.0 Nitrite, Urine Negative Positive ! Esterase, Urine Negative Moderate ! Legend: ! Abnormal CULTURES: Blood 12/01/24- NGTD IMAGING: CT AP w/o contrast 12/01/24 IMPRESSION: 1. A Tatum catheter terminates in the penile urethra. The inflated balloon of the Tatum catheter is inside the penile urethra. The balloon needs to be deflated and the Tatum catheter needs to be repositioned. 2. Small amount of air in the bladder. Mild bladder wall thickening and adjacent fat stranding, suggestive of cystitis. A 2 cm diverticulum arising from the right posterolateral wall of the bladder and a 3 cm diverticulum arising from the left posterolateral wall of the bladder. Urology consult is recommended. 3. A 1 mm nonobstructing calculus in the upper pole of the right kidney and a 2 mm nonobstructing calculus in the upper pole of the left kidney. No hydronephrosis and no ureteral calculus on either side. 4. A retrievable infrarenal IVC filter. 5. Compression fractures of indeterminate age involving L2 and L3 superior endplates and resulting in mild loss of height without retropulsion into the spinal canal. Moderate degenerative joint disease at L4-L5 level. 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 Hhwy-[id number]-lgammtpj degenerative joint disease in bilateral hip joints. Personally reviewed and interpreted imaging. IMPRESSION: 79 year old male for traumatic Tatum manipulation, chronic Tatum catheter, history of urothelial carcinoma, and history of prostate cancer. PLAN: - Tatum catheter repositioned in ED - Hematuria is likely secondary to tatum trauma during fall - Would recommend tamsulosin if BP normalizes - UTI vs colonization due to chronic tatum catheter - HH to continue monthly catheter changes - Will plan follow-up in the next 2-3 months at [facility] and [facility] - Rest of care per primary team Patient was discussed with Dr. Prado. Jimena Claros PA-C Cosigned by Valdemar Prado MD at 12/01/2024 4:07 PM EDT documented in this encounter Nursing Notes * Keshia Preston RN - 12/01/2024 1:44 PM EDT 1330 - Pt's tatum catheter leaking large amounts of urine. Jimena JULES made aware. * Angie Nickerson RN - 12/01/2024 10:20 AM EDT VIRTUAL RN [facility]-[address] [place] [id number] Name: Branden High Location: [facility] 3B-3010/W Date: 12/01/2024 Time: 10:20 AM I completed the Admission Navigator. The patient was in the hospital. I was not in a hospital or clinic location. After connecting through [employer], the patient was identified by name and date of and / or wristband checked. Patient (or authorized legal printing supplies sales representative) was then informed that this was a Virtual Nurse visit and was being conducted confidentially over secure lines. My office door was closed. No one else was in the room with me. Patient acknowledged consent and understanding of privacy and security of the Virtual Nurse visit. I presented the opportunity for the patient or authorized legal printing supplies sales representative to ask any questions regarding the visit today. The patient or authorized legal printing supplies sales representative agreed to participate. * Keshia Preston RN - 12/01/2024 10:00 AM EDT Dual Licensed Skin Assessment completed by Enrrique Argueta RN and Enrrique Preston RN. The patient is/has a N/A Skin Breakdown (includes non blanchable erythema): No Pt has redness to buttocks that is blanchable. No open areas noted. 0945 - Pt admitted to [facility] at this time. Pt from home w/ . Pt is a poor historian w/ short term memory loss. Oriented x4 at this time but repeats himself. [address] Bleeding notedaround catheter. Urine concentrated/blood tinged. Pt oriented to room and surroundings. Call cooney in reach documented in this encounter ED Notes * Susie Funes DO - 12/01/2024 4:53 AM EDT HISTORY OF PRESENT ILLNESS Branden High is a 79 year old male who presents to the ED for evaluation of Fall and Hematuria. The patient was seen at 12/01/24 0453. 79-year-old male with a history of myocarditis, angioedema, CKD, DVT/PE, hypertension, mild cognitive impairment, IVC filter, dementia, urothelial carcinoma of the bladder. On anticoagulation with Eliquis Patient arrives as a trauma alert by EMS 0516 Patient was home, shortly within sec after standing up at the end of the bed, fell to the ground and lost consciousness. Denies being lightheaded or sweaty or having chest pain shortness of breath or palpitations. He reported some mild mid neck pain and suprapubic discomfort. It was a forward fall he reports. He initially reported no pain or injuries to the head or neck or numbness tingling weakness to the extremities or visual disturbance. He denies fever but reports a cough within last 3or 4 days. No pain in the penis scrotum or testicles. Has been eating well. Lives at home with his , has a Tatum catheter for bladder cancer. Thinks he is on anticoagulation but is unsure [TS] HPI: Branden High is a 79 year old male who presents for evaluation as a LEVEL 1 TRAUMA ALERT The mechanism of injury was a fall The trauma occured tonight The patient arrived by ems PRE-ARRIVAL NOTIFICATION BY EMS: Yes PRE-ARRIVAL NOTIFICATION BY NON-EMS PERSON: na If yes, who notified? na Treatments prior to arrival include na. PRIMARY SURVEY Airway assessed, clear and unobstructed with no secretions or blood in airway Breathing assessed, equal chest rise with equal breath sounds bilaterally, no gross thoracic instability Circulation assessed, pulses present in all extremities, no actively bleeding wounds Disability/Neuro assessed, awake, alert, follows commands with all extremities Exposure patient fully exposed and clothing removed to allow assessment of injuries Is a cervical collar already in place as the patient arrived? No Did [facility] ED staff place a cervical collar on the patient on arrival? Yes IF EITHER ANSWER IS YES, delete the "cervical spine assessment" section CERVICAL SPINE ASSESSMENT Is patient reporting neck pain? Yes Does patient have a distracting injury? No Does the patient have altered mental status from any cause? No Does the patient have any neuro exam deficits? No If any of the above are "yes" then apply cervical collar. If this cannot be done, document reason here: XRAYS Portable 1 view chest xray was ordered? Yes Reason why NOT ordered: Preliminary reading: neg Portable 1 view pelvis xray was ordered? Yes Reason why NOT ordrered: Preliminary reading: neg PROCEDURE: eFAST Ultrasound exam Deferred, The patient's allergies, past history, and medications were reviewed. PHYSICAL EXAM Initial Vitals (see all): BP 143/83 | Pulse 95 | Resp 19 | Temp 101.8 | O2 99 %, Room Air, None | Weight 100.7 kg | Height 188 cm | BMI 28.5 kg/m2 Initial Pain Assessment (see all): 0 (no pain)/10 ([facility] Adult Scale 0-10 (18 years and older)) General: alert, comfortable-appearing, NAD HEENT/Neck: Head: NCAT, face symmetric, no tenderness or deformity to the skull or face Eyes: sclera white, conjunctiva pink, perrl/eomi Ears: external normal, Nose: external normal, Throat: mucous membranes dry Neck: neck supple, full painless ROM, +midline tenderness nostepoffs or deformities, trachea midline Cardio: s1s2 and regular, +murmur rub Pulm: lungs clear with no wheeze, rhonchi, rales; no increased WOB, no accessory muscle use Chest: no tenderness, deformity, or ecchymosis Abdomen: non-acute, soft nontender, non-distended, without ecchymosis palpable mass rebound or guarding, Tatum catheter in place with normal outward appearing male otherwise though there has bloodaround the Tatum catheter and blood in the tubing Pelvis: stable to anterior-posterior compression, central anterior ttp Back: lspine ttp, no other tenderness ecchymosis stepoffs or deformities Neuro: GCS 15, normal sensorium and speech, 5/5 symmetric UE and LE strength and equal sensation Skin: warm, dry, intact with no erythema bruising or petechiae Extremities: no gross deformities, wwp x4 pp +2 PROCEDURES AND TREATMENTS ED Orders | ED Results MEDICAL DECISION MAKING Nursing notes and vital signs were reviewed. ED consults were placed. ED Course as of 12/01/24 1124 WedDec 01, 2024 0748 Collar cleared w reported baseline neck pain [TS] 0748 Urine appears more clear [TS] 0802 D/w - lives in hospital bed in dining room - was walking around house around 1am and wentback to bed but around 3am was sitting on ground in front of the sofa w walker in front of him. Hasmemory issues. Catheter was leaking and was changes yesterday. Has appt to see SEUN MATTHEWS. Abx within last few days for urine [TS] 0846 EKG interpreted by me, sinus rhythm rate 86, normal axis/intervals. No acute ischemia arrhythmia noted. Compared to last on file, similar x2 [TS] ED Course User Index [TS] Susie Funes DO In summary, is a 79-year-old male presents initially for trauma. Was made a trauma alert. Differential diagnosis includes ICH, spine or spinal cord injury, solid or visceral organ injury, bony fracture or dislocation, among others. After history physical labs and imaging, did not find major traumatic injuries. The catheter may has been dislodged from the fall or placed abnormal yesterday after discussion with , however it was replaced with a 3 way catheter for irrigation. Initially had cervical collar but this was cleared after he told me he had more chronic neck pain and nothing acute from the fall tonight. He has been found on his bottom, did not say yes about hitting his head or neck. No neurologic deficits. Collar was cleared Additionally, had a fever. Has history of bladder cancer, chronic Tatum catheter, had a cough earlier in the week. Differential diagnosis for fever and/or hematuria includes malignancy, PE, glucose metabolic electrolyte abnormality, pneumonia, UTI, bacteremia, demar/myocarditis, among others. Working diagnosis is urine as source. Syncope also a consideration including orthostasis, arrhythmia, ACS,among others -- patient later said he never lost consciousness/ was not aware of this. She doessay he has memory issues.. Leukocytosis noted. Troponin elevated but stable, EKG without ischemia. No significant hemoglobin drop. Renal function worsen than prior, given IV fluids. Viral panel negative. Urine appears positive for infection, started on ceftriaxone. Blood cultures pending Hospitalist service did admit the patient. I did review imaging findings with including incidental findings. Aorta appears stable to the CT any, last on file with similar pictures. Compression fractures reviewed, reports no acute pain there from the fall today, had a fall prior patient/ reports is a, since they are indeterminate only mildly tender and no retropulsion/neurologic abnormalities, will be able to remain here in the setting of fall. With his allergy to contrast dye includingcardiac arrest which patient reported to me, we deferred using IV contrast understanding of the limitations. Is supposed to be seen by Urology in the near future Amount and/or Complexity of Data Reviewed Labs: ordered. Radiology: ordered. ECG/medicine tests: ordered. Risk OTC drugs. Prescription drug management. Decision regarding hospitalization. Clinical Impressions Fall Hematuria, unspecified type Complicated UTI (urinary tract infection) Chronic anticoagulation Tatum catheter in place Chest pain Febrile illness Disposition Admitted. I discussed the management of this patient with the admitting provider and I made a decision to admit the patient. Admission Order Ordered Status . 12/01/24 0846 Admit for Inpatient Services (incl ZPO) ONCE Completed Susie Funes * Edie Dumont RN - 12/01/2024 4:53 AM EDT Patient presents via EMS after a ground level fall. Reports that around 0230 he slipped and fell onto his buttock. Patient was having mild buttock pain, but it has now resolved. reports that he has a chronic catheter and had it changed out 2 days ago. Reports that he has had hematuria since the change. Hx of bladder cancer. On Eliquis. documented in this encounter Miscellaneous Notes * Pt Handout (on AVS) - Kev Joya RN - 12/02/2024 12:03 PM EDT [id number] Linezolid Brand Name(s): Zyvox® WHY is this medicine prescribed? Linezolid is used to treat certain infections caused by bacteria, including pneumonia and infections of the skin. Linezolid is in a class of antibacterials called oxazolidinones. It works by stoppingthe growth of bacteria. Antibiotics such as linezolid will not work for colds, flu, and other viral infections. Using antibiotics when they are not needed increases your risk of getting an infection later that resists antibiotic treatment. HOW should this medicine be used? Linezolid comes as a tablet and oral suspension (liquid) to take by mouth. It is usually taken withor without food twice a day (every 12 hours) for 10 to 28 days. Children 11 years of age and younger usually take linezolid with or without food two to three times a day (every 8 to 12 hours) for 10 to 28 days. The length of your treatment depends on the type of infection you have. Follow the directions on your prescription label carefully, and ask your doctor or pharmacist to explain any part you do not understand. Take linezolid exactly as directed. Do not take more or less of it or take it more often than prescribed by your doctor. Before using the oral suspension, gently mix it by turning over the bottle three to five times. Do not shake the suspension. Take linezolid until you finish the prescription, even if you feel better. Do not stop taking linezolid without talking to your doctor. If you stop taking linezolid too soon or if you skip doses, your infection may not be completely treated and the bacteria may become resistant to antibiotics. Are there OTHER USES for this medicine? This medication may be prescribed for other uses; ask your doctor or pharmacist for more information. What SPECIAL PRECAUTIONS should I follow? Before taking linezolid, · tell your doctor and pharmacist if you are allergic to linezolid, any other medications, or any of the ingredients in the linezolid product you have been prescribed. Ask your pharmacist for a listof the ingredients . · Some medications should not be taken with linezolid. Other medications may cause dosing changes or extra monitoring when taken with linezolid. Make sure you have discussed any medications you are currently taking or plan to take before starting linezolid with your doctor and pharmacist. Before starting, stopping, or changing any medications while taking linezolid, please get the advice of yourdoctor or pharmacist. · The following nonprescription or herbal products may interact with linezolid: phenylephrine (Sudafed PE; in many cold or decongestant medications) and pseudoephedrine (Sudafed; in many cold or decongestant medications).. Be sure to let your doctor and pharmacist know that you are taking these medications before you start taking linezolid. Do not start any of these medications while taking linezolid without discussing with your healthcare provider. · tell your doctor if you are taking the following medications or have stopped taking them within the past two weeks: isocarboxazid (Marplan) phenelzine (Nardil). rasagiline (Azilect), selegiline (Eldepryl, Emsam, Zelapar), and tranylcypromine (Parnate). · tell your doctor if you have a chronic (long-lasting) infection, or if you have or have ever hadcarcinoid syndrome (a condition in which a tumor secretes serotonin). diabetes , high blood pressure, hyperthyroidism (an overactive thyroid), immune suppression (problems with your immune system), ph eochromocytoma (a tumor of the adrenal gland),seizures, or kidney or liver disease. · tell your doctor if you are , plan to become , or are . If you become while taking linezolid, call your doctor. · you should know that this medication may decrease fertility in men. Talk to your doctor about the risks of taking linezolid. · if you are having surgery, including dental surgery, tell the doctor or dentist that you are taking linezolid. · if you have phenylketonuria (PKU, an inherited condition in which a special diet must be followed to prevent damage to your brain that can cause severe intellectual disability), you should know that the oral suspension contains aspartame that forms phenylalanine. What SPECIAL DIETARY instructions should I follow? Avoid eating or drinking large amounts of foods and beverages containing tyramine while taking linezolid. Tyramine is found in many foods and beverages, including alcoholic beverages, such as beer and red wine; meat, poultry, fish, or cheese that has been smoked, aged, improperly stored, or spoiled; and certain fruits, vegetables, beans, and yeast products that have been pickled or fermented. Talk to your doctor or dietitian about which foods you should avoid during your treatment or if you do not feel well after eating or drinking certain foods while taking linezolid. What should I do IF I FORGET to take a dose? Take the missed dose as soon as you remember it. However, if it is almost time for the next dose, skip the missed dose and continue your regular dosing schedule. Do not take a double dose to make up for a missed one. What SIDE EFFECTS can this medicine cause? Some side effects can be serious. If you experience any of these symptoms, call your doctor immediately or get emergency medical treatment: · hives;rash; itching; difficulty breathing or swallowing; swelling of the face, throat, tongue, lips, eyes, hands, or feet; or hoarseness · blistering or peeling skin · repeated nausea and vomiting; fast breathing; confusion; or feeling tired · pain, numbness, or weakness in hands, feet, or other parts of the body · severe diarrhea (watery or bloody stools) that may occur with or without fever and stomach cramps (may occur up to 2 months or more after your treatment) · unusual bleeding or bruising · changes in color vision, blurred vision, or other changes in vision · seizures · confusion, drowsiness, weakness, difficulty breathing · muscle pain or tenderness · muscle weakness · dark or cola-colored urine Linezolid may cause other side effects. Call your doctor if you have any unusual problems while taking this medication. If you experience a serious side effect, you or your doctor may send a report to the Food and Drug Administration's (FDA) MedWatch Adverse Event Reporting program online (https://www.fda.gov/Safety/MedWatch) or by phone ( ). What should I know about STORAGE and DISPOSAL of this medication? Keep this medication in the container it came in, tightly closed, and out of reach of children. Store it at room temperature and away from light and excess heat and moisture (not in the bathroom). Linezolid oral suspension should be used within 21 days. Unneeded medications should be disposed of in special ways to ensure that pets, children, and otherpeople cannot consume them. However, you should not flush this medication down the toilet. Instead,the best way to dispose of your medication is through a medicine take-back program. Talk to your pharmacist or contact your local garbage/recycling department to learn about take-back programs in your community. See the FDA's Safe Disposal of Medicines website (https://goo.gl/c4Rm4p) for more information if you do not have access to a take-back program. It is important to keep all medication out of sight and reach of children as many containers (such as weekly pill minders and those for eye drops, creams, patches, and inhalers) are not child-resistant and young children can open them easily. To protect young children from poisoning, always lock safety caps and immediately place the medication in a safe location - one that is up and away and out of their sight and reach. https://www.upandaway.org What should I do in case of OVERDOSE? In case of overdose, call the poison control helpline at . Information is also available online at https://www.poisonhelp.org/help. If the victim has collapsed, had a seizure, has trouble breathing, or can't be awakened, immediately call emergency services at 911. What OTHER INFORMATION should I know? Keep all appointments with your doctor and the laboratory. Your doctor may order certain blood tests to check your body's response to linezolid. Do not let anyone else take your medication. Your prescription is probably not refillable. If you still have symptoms of infection after you finish the linezolid, call your doctor. It is important for you to keep a written list of all of the prescription and nonprescription (guuc-tix-iruacnd) medicines you are taking, as well as any products such as vitamins, minerals, or otherdietary supplements. You should bring this list with you each time you visit a doctor or if you areadmitted to a hospital. It is also important information to carry with you in case of emergencies. This report on medications is for your information only, and is not considered individual patient advice. Because of the changing nature of drug information, please consult your physician or pharmacist about specific clinical use. The [employer] represents that the information provided hereunder was formulated with a reasonable standard of care, and in conformity with professional standards in the field. The [employer] makes no representations or warranties, express or implied, including, but not limited to, any implied warranty of merchantability and/or fitness for a particular purpose, with respect to such information and specifically disclaims all such warranties. Users are advised that decisions regarding drug therapy are complex medical decisions requiring the independent, informed decision of an appropriate health point of care specialist, and the information is provided for informational purposes only. The entire monograph for a drug should be reviewed for a thorough understanding of the drug's actions, uses and side effects. The [employer] does not endorse or recommend the use of any drug.The information is not a substitute for medical care. FS® Patient Medication Information?. © , 2023. [employer]®, [facility], [address], [place], [place]. All Rights Reserved. Duplication for commercial use must be authorized by [facility]. Selected Revisions: June 04, 2024. FS® Patient Medication Information?. © Copyright5 * Pt Handout (on AVS) - Domitila Wagner RN - 12/02/2024 12:03 PM EDT Images from the original note were not included. [id number] Diet for Chronic Kidney Disease Following a special diet when you have kidney disease can help you stay as healthy as possible. Your health care provider or dietitian should make a special diet plan just for you. Eating right Here are some good eating rules to follow: · Protein. Eating protein is important for your body. But too much protein, especially from supplements, can put a strain on your kidneys. Eating less protein may slow the progression of chronic kidney disease. Foods high in protein include meat, fish, beans, nuts, eggs, cheese, and other dairy products. A registered dietitian can help you plan a diet that has the right amount of protein for you. · Sodium. Having too much salt in your diet can make your body hold onto (retain) water. Ask your dietitian or other health care provider how much sodium per day you are allowed. This will help you prevent fluid buildup in your body (fluid retention). It can also help control high blood pressure. Learn to read food labels to find how much sodium is in 1 serving. Foods high in salt include processed meats, canned and boxed foods, sauces, salted chips and snacks, pickled foods, frozen dinners, and restaurant and fast food. · Fluids. If you have advanced kidney disease, you will need to limit the water and fluids you drink. If you don?t, then too much water will build up in your body. The exact amount of fluid you can drink depends on how well your kidneys are working. Ask your provider how much water you can safely drink each day. · Potassium. In advanced kidney disease, your potassium level can get dangerously high. This affects your heart. It can cause an irregular heartbeat (arrhythmia). Ask your provider or dietitian if you should limit potassium in your diet. Foods high in potassium include dairy products (milk, yogurt, cheese), beans, bananas, oranges, potatoes, tomatoes, spinach, cantaloupe, honeydew melon, dried fruits, and nuts. Some salt substitutes also contain potassium, so be sure to read the label before using them. · Calcium. Calcium is important to build strong bones. But foods high in calcium are also high in phosphorus, which can take calcium from your bones. Limiting foods high in phosphorus will help keepcalcium in your bones. Ask your provider how much calcium you should get each day. · Phosphorus. In advanced kidney disease, your phosphorus level can get dangerously high. This affects many systems in the body and can damage your heart. Limit your intake of phosphorus-rich foods.These include beans and peas, nuts, peanut butter, cocoa, beer, cola drinks, and dairy products. Last Reviewed Date: 2024 00:00:00 © 0681-7422 [employer]. All rights reserved. This information is not intended as a substitute for professional medical care. Always follow your healthcare professional's instructions. * Care Plan - Mita Mejias RN - 12/02/2024 5:18 AM EDT Clinical Goal(s): Pt will have a restful night (12/01/242011) Possible barriers to meeting goal(s)/advancing plan of care: Clinical dx Stability of the patient: Moderately unstable - medium risk of patient condition declining or worsening Summary regarding today's goal(s): Met: Pt rested well through the night, tatum leaking, no blood noted in tatum, no c/o pain or pressure in abd. Recommendations: Continue with plan of care. * Ancillary Progress Note - Jada Contreras, Integration Specialist - 12/01/2024 5:17 PMEDT PEREZ spoke with Elva from [facility] home healthy they are unable to accept patient back on their servicesat d/c. PEREZ spoke Ivet about patient HH. PEREZ informed her that patient was not going to be dk to go home with [facility] as they were unable to accept the patient back on their services. Ivet requested [facility] or one named [facility], Patient was offered list of HH through repisodic choice and declined. Patient information was sent to [facility]. EDT * Medical Necessity - Venkat Lopez RN - 12/01/2024 12:06 PM EDT AdmissionCare Guideline: Urinary Tract Infection (UTI), Inpatient Based on the indications selected for the patient, the bed status of Inpatient was determined to beNOT MET The following indications were selected as present at the time of evaluation of the patient: No Indications Were Selected AdmissionCare documentation entered by: Venkat Lopez [facility], 28th edition, Copyright © 2023 [facility] All Rights Reserved. [id number]:06:37-04:00 Solely for purpose of utilization review and payment; not a diagnostic tool * Pt Handout (on AVS) - Gia Palomo RN - 12/01/2024 9:53 AM EDT [id number] Fall Prevention Falls often take place due to slipping, tripping, or losing your balance. Millions of people fall every year and injure themselves. Among older adults in the [place] falls are the most common cause of traumatic brain injuries. Every 20 minutes, an older adult dies from a fall. Here are ways to reduceyour risk of falling again: · Think about your fall. Was there anything that caused your fall that can be fixed, removed, or replaced? · Make your home safe by keeping walkways clear of objects you may trip over, such as animal toys and electrical cords. · If you are sad or depressed talk to your health care provider. Symptoms of depression, such as feeling under the weather, or physically "slowed down," have been linked to an increased fall risk. · Drink fluids throughout the day. Dehydration can lead to dizziness and increase your risk of falling. It's best to talk to your primary care providers about how much water you should drink. They know your medical history, your current prescriptions and your opvb-rja-oytnhcd medicines. As a general rule, the [employer] [place] [employer] (NCA) recommends taking one-third of your body weight and drinking that number of ounces in fluids. For example, if you weigh 150 pounds, you would drink at least 50 ounces, or about 6 cups, of fluid each day. Ask your provider if it's safe for you to use this formula. · Use nonslip pads under rugs. Don't use area rugs or small throw rugs. · Use nonslip mats in bathtubs and showers. · Hang grab rails by the toilet and inside and outside the shower. · Install handrails and lights on staircases. The handrails should be on both sides of the stairs. · Use night lights. · Don't walk in poorly lit areas. · Don't stand on chairs or wobbly ladders. · Use care when reaching overhead or looking up. This position can cause a loss of balance. · Be sure your shoes fit well, are in good condition, and have nonslip bottoms. · Wear shoes both inside and outside of your home. Don't go barefoot or wear slippers. · Be cautious when going up and down stairs, curbs, and when walking on uneven sidewalks. · If your balance is poor, consider using a cane or walker. Talk with your health care provider about having a balance assessment. · If your fall was related to alcohol use, stop or limit alcohol intake. Ask your provider for help if you think you may overuse alcohol and can't stop. · If your fall was related to use of sleeping medicines, talk with your provider about this. You may need to reduce your dosage at bedtime if you wake up during the night to go to the bathroom. · To reduce the need for nighttime bathroom trips: o Don't drink fluids for several hours before going to bed. o Empty your bladder before going to bed. o Men can keep a urinal at the bedside. · Stay as active as you can. Balance, flexibility, strength, and endurance all come from exercise.They all play a role in preventing falls. Ask your provider which types of activity are right for you. Try to do some type of exercise every day. · Get your eyes checked once a year or more often if your vision changes. Be extra cautious while adjusting to new prescription lenses. · If you have pets, know where they are before you stand up or walk so you don't trip over them. · Go over all your medicines with a pharmacist or other provider. This is to see if any of them could make you more likely to fall. Have this type of medicine review at least once every year. · If your provider advises a new medicine, ask if the side effects will affect your balance. · Don't move quickly from one position to another. For instance, don't stand up fast from sitting.This can cause dizziness and may lead to a fall. · Sit down when putting on pants, socks, and shoes. This will make you less likely to lose your balance and fall. · Always let your provider know if you have fallen since your last visit. · Contact your provider right away if you're having balance problems or falling more often. Last Reviewed Date: 2024 00:00:00 © 3600-0926 [employer]. All rights reserved. This information is not intended as a substitute for professional medical care. Always follow your healthcare professional's instructions. * Pt Handout (on AVS) - Gia Palomo RN - 12/01/2024 9:53 AM EDT [id number] Blood in Urine (Hematuria) Blood in your urine is called hematuria. Most of the time, the cause is not serious. But you shouldnever ignore blood in the urine. Your healthcare provider can evaluate you to find the cause of thebleeding and treat it, if needed. Types of hematuria · Gross hematuria. This means that the blood can easily be seen when you look at it. The urine maylook pinkish, brownish, or bright red. · Microscopic hematuria. This means that the urine appears clear, but blood cells can be seen whenurine is looked at under a microscope or tested in a lab. Both types of hematuria can have the same causes. Neither is more serious than the other. With either type, you may not have any other symptoms at all. Or you may have symptoms, such as: · Pain, pressure, or burning when you urinate · Belly pain · Back pain No matter how much blood is in your urine, the cause of the bleeding needs to be diagnosed and treated. What causes hematuria? Causes of hematuria vary. Some of the more common causes include : · Injury or trauma · Strenuous exercise · Infection or inflammation of the bladder, urethra, kidney, or prostate · Menstruation. In this case, blood is found in urine sample, but it's not related to urinary problems. Other reasons for blood in urine that may be more serious include: · Blood-clotting disorders · Kidney or bladder stones · Prostate enlargement · Bladder or kidney cancer · Sickle cell disease · Kidney disease of the glomeruli. This is a round cluster of blood vessels. Many treatments are available for blood in the urine, depending on the cause. Diagnosing hematuria Your healthcare provider will first confirm that blood is in your urine. They will also ask about your health history and give you a physical exam. Then you may have tests to find out where the bloodis coming from and why. Your provider will decide which tests will best find the cause of your hematuria. These are some common tests that may be done: · Urine tests, such as urinalysis, urine culture, or urine cytology · Blood tests · Cystoscopy · CT scan or CT urography · MRI or MR urography · Ultrasound of the kidney · Kidney biopsy Last Reviewed Date: 2023 00:00:00 © [employer]. All rights reserved. This information is not intended as a substitute for professional medical care. Always follow your healthcare professional's instructions. * ED Teacher Preschool Note - Reina Renee RN - 12/01/2024 5:30 AM EDT Pt arrives after syncope/fall. Reports that he did not hit his head. He does have prostate CA and had tatum changed 2 days ago. Arrives with a 1000 ml dario red blood in collection bag. Patient seemsto have short term memory problems. He is awake and alert. Oriented to person place time for this nurse, although he told triage he thought he was at [facility]. Cooperative at this time. reports that he is currently on antibiotics for UTI and takes eliquis. documented in this encounter Plan of Treatment Upcoming Encounters Date Type Department Care Team (Late st Contact Info) Description 12/05/2024 11:00 AM EDT Office Visit Family [facility], Valarie Amanda Singh [address] [phone] Chuy Batista MD [address] [id number] 12/06/2024 10:00 AM EDT Nurse Only Urology, [facility] [address] [place] [phone] [facility] Nurse Urology [facility] [address] [place] [id number] 12/08/2024 1:00 PM EDT Cardiac Studies Cardiac Studies, Valarie Amanda Ybarra [address] [phone] 01/03/2025 3:00 PM EDT Procedure Only Urology Miri Orozco [address] [place] [address] [phone] Willi Smith Jr., MD [address] [id number] 01/05/2025 11:30 AM EDT Imaging Radiology [address] [place] [phone] 01/10/2025 9:30 AM EDT Office Visit Hematology/Oncology [facility] [address] [place] [phone] Xavi Gramajo MD [address] [place] [address] 05/22/2025 10:45 AM EDT Office Visit Urology, [facility], [place] [address] [phone] Valdemar Prado MD [address] [place] [id number] Pending Results Name Type Priority Associated Diagnoses Date /Time CULTURE, BLOOD Lab Routine 12/01/2024 5:10 AM EDT CULTURE, BLOOD Lab Routine 12/01/2024 5:10 AM EDT CULTURE, URINE, QUANTITATIVE Lab STAT 12/02/2024 9:07 AM EDT Scheduled Orders Name Type Priority Associated Diagnoses Orde r Schedule CULTURE, URINE, QUANTITATIVE Lab STAT One Time for 1 Occurrences starting 12/02/2024 until 12/02/2024 Health Maintenance Due Date Last Done Comments Albumin/Creatinine Ratio 1963 DTap/Tdap Vaccines (1 - Tdap) 1964 Adult Wellness Visit 02/01/2020 01/31/2019 COVID-19 Vaccine ( season) 2024 07/22/2022, 07/22/2022, 02/11/2022, Additional history exists CKD PHOS USE SMARTSET 25475 09/11/202408/17, 09/11/2023, 07/14/2021, Additional history exists Depression Screening 12/26/2024 12/27/2023 GFR 06/03/2025 12/02/2024, 11/14, 10/13/2024, Additional history exists CKD HGB USE SMARTSET 87660 12/02/202512/02, 12/01/2024, 12/01/2024, Additional history exists Pneumococcal [...] Procedure Name Priority Date/Time Associated Diagnosis Comments BASIC METABOLIC PANEL Routine 12/02/2024 5:35 AM EDT CK Add-on 12/02/2024 5:35 AM EDT CBC Routine 12/02/2024 5:35 AM EDT HEMOGLOBIN AND HEMATOCRIT PANEL Routine 12/01/2024 3:19 PM EDT MRI BRAIN W WO CONTRAST Routine 12/01/2024 2:26 PM EDT MRSA SCREEN, PCR Routine 12/01/2024 11:2 6 AM EDT TROPONIN T, HIGH SENSITIVITY STAT 12/01/2024 7:03 AM EDT LACTATE STAT 12/01/2024 7:03 AM EDT EXTRA URINE ALIQUOT STAT 12/01/2024 6 :19 AM EDT TOXICOLOGY, URINE SCREEN W/ CONFIRMATION STAT 12/01/2024 6:19 AM EDT MICROSCOPIC EXAM, URINE STAT 12/01/2024 6:19 AM EDT URINALYSIS, REFLEX TO MICROSCOPIC STAT 12/01/2024 6:19 AM EDT ABO/RH Routine 12/01/2024 5:40 AM EDT PT INR STAT 12/01/2024 5:[address] ABD/PELVIS WO IV/ORAL CONTRAST STAT 12/01/2024 5:[address] C SPINE WO CONTRAST STAT 5:[address] CHEST WO CONTRAST STAT 12/01/2024 5:[address] HEAD/BRAIN WO CONTRAST STAT 12/01/2024 5:21 AM EDT Disorder of brain, unspecified Chronic anticoagulation Exposure to other specified factors, initial encounter XR CHEST 1 VIEW STAT 12/01/2024 5:16 AM EDT XR PELVIS AP VIEW STAT 12/01/2024 5:1 6 AM EDT RESPIRATORY PATHOGEN PANEL, PCR STAT 12/01/2024 5:11 AM EDT DIFFERENTIAL, AUTOMATED STAT 12/01/2024 5:10 AM EDT TROPONIN T, HIGH SENSITIVITY STAT 12/01/2024 5:10 AM EDT PROCALCITONIN Routine 12/01/2024 5:10 AM EDT BNP (NT-PROBNP) STAT 12/01/2024 5:10 AM EDT COMPREHENSIVE METABOLIC PANEL STAT 12/01/2024 5:10 AM EDT TYPE AND SCREEN STAT 12/01/2024 5:10 AM EDT CBC STAT 12/01/2024 5:10 AM EDT LACTATE,WHOLE BLOOD STAT 12/01/2024 5 :10 AM EDT ETHANOL, MEDICAL STAT 12/01/2024 5:10 AM EDT CULTURE, BLOOD Routine 12/01/2024 5:10 AM EDT CULTURE, BLOOD Routine 12/01/2024 5:10 AM EDT CBC STAT 12/01/2024 5:10 AM EDT GLUCOSE METER, POINT OF CARE RAYMUNDO 12/01/2024 5:01 AM EDT documented in this encounter Results * CK (12/02/2024 5:35 AM EDT) CK 116 39 - 308 U/L 12/02/2024 8:12 AM EDT LABORATORY GL Blood Venous blood specimen / Unknown Venipuncture / Unknown 12/02/2024 5:35 AM EDT 12/02/2024 5:52 AM EDT us Min Min Misbah POWELL LAB BLOOD ORDERABLES Final Resul t LABORATORY [address] [address] * (ABNORMAL) BASIC METABOLIC PANEL (12/02/2024 5:35 AM EDT) BUN 16 6 - 20 mg/dL 12/02/2024 6:19 AM EDT LABORATORY GL[facility] CREATININE 1.6(H) 0.6 - 1.2 mg/dL 12/02/2024 6:19 AM EDT LABORATORY [facility] EGFR 44(L) >=60 mL/min 12/02/2024 6:19 AM EDT LABORATORY [facility] Comment:eGFR is calculated b ased on the CKD-EPI 2020 equation. SODIUM 141 135 - 146 mmol/L 12/02/2024 6:19 AM EDT LABORATORY [facility] POTASSIUM 3.5 3.5 - 5.1 mmol/L 12/02/2024 6:19 AM EDT LABORATORY [facility] CHLORIDE 107 98 - 107 mmol/L 12/02/2024 6:19 AM EDT LABORATORY GL[facility] CO2 25 22 - 32 mmol/L 12/02/2024 6:19 AM EDT LABORATORY [facility] ANION GAP 9 7 - 15 mmol/L 12/02/2024 6:19 AM EDT LABORATORY [facility] GLUCOSE 104 70 - 120 mg/dL 12/02/2024 6:19 AM EDT LABORATORY GL CALCIUM 8.3(L) 8.4 - 10.2 mg/dL 12/02/2024 6:19 AM EDT LABORATORY [facility] Blood Venous blood specimen / Unknown Venipuncture / Unknown 12/02/2024 5:35 AM EDT 12/02/2024 5:52 AM EDT us Diana CHOU LAB BLOOD ORDERABLES Final Result LABORATORY [facility] [address] [place] [address] * (ABNORMAL) CBC (12/02/2024 5:35 AM EDT) WBC 8.33 4.00 - 10.80 K/uL 12/02/2024 5:57 AM EDT LABORATORY [facility] RBC 3.66 4.50 - 5.25 M/uL 12/02/2024 5:57 AM EDT LABORATORY [facility] HGB 10.9(L) 14.0 - 16.8 g/dL 12/02/2024 5:57 AM EDT LABORATORY [facility] HCT 33.2(L) 40.0 - 48.4 % 12/02/2024 5:57 AM EDT LABORATORY [facility] MCV 90.7 82.0 - 99.5 fL 12/02/2024 5:57 AM EDT LABORATORY [facility] MCH 29.8 27.0 - 34.0 pg 12/02/2024 5:57 AM EDT LABORATORY [facility] MCHC 32.8 32.0 - 36.0 g/dL 12/02/2024 5:57 AM EDT LABORATORY GL RDW 16.1 11.5 - 15.5 % 12/02/2024 5:57 AM EDT LABORATORY GL PLT 179 140 - 400 K/uL 12/02/2024 5:57 AM EDT LABORATORY [facility] MPV 9.1 6.6 - 11.1 fL 12/02/2024 5:57 AM EDT LABORATORY GL NRBCs 0 <=0 /100 WBCs 12/02/2024 5:57 AM EDT LABORATORY GL Blood Venous blood specimen / Unknown Venipuncture / Unknown 12/02/2024 5:35 AM EDT 12/02/2024 5:52 AM EDT Diana CHOU LAB BLOOD ORDERABLES Final Result Performing Organization Address [facility] Co de Phone Number LABORATORY [address] [address] * (ABNORMAL) HEMOGLOBIN AND HEMATOCRIT PANEL (12/01/2024 3:19 PM EDT) [facility] HGB 12.1(L) 14.0 - 16.8 g/dL 12/01/2024 3:35 PM EDT LABORATORY GL[facility] HCT 36.3(L) 40.0 - 48.4 % 12/01/2024 3:35 PM EDT LABORATORY [facility] Blood Venous blood specimen / Unknown Venipuncture / Unknown 12/01/2024 3:19 PM EDT 12/01/2024 3:29 PM EDT Diana CHOU LAB BLOOD ORDERABLES Final Result Performing Organization Address [facility] de Phone Number LABORATORY [address] [address] * MRI BRAIN W WO CONTRAST (12/01/2024 2:26 PM EDT) Anatomical Region Laterality Modality Neuro, Head Magnetic Resonan ce 12/01/2024 3:31 PM EDT Impressions 12/01/2024 3:29 PM EDT IMPRESSION 1. No acute intracranial abnormality. Specifically, no acute ischemic infarction. 2. Generalized volume loss with patchy and more confluent areas of white matter changes, nonspecific but likely related to chronic microvascular ischemic changes. Narrative 12/01/2024 3:29 PM EDT EXAM BRAIN MRI WITHOUT AND WITH CONTRAST - 12/01/2024 HISTORY Progressive cognitive decline. History of urothelial carcinoma COMPARISON CT head dated 12/01/2024. TECHNIQUE Multiplanar, multisequence MRI of the brain was performed before and after the administration of intravenous contrast. FINDINGS No acute infarct, acute intracranial hemorrhage, mass effect, midline shift, hydrocephalus, or extra-axial fluid collection. No abnormal enhancement is identified. Generalized volume loss with proportionate prominence of the ventricles and sulci. Patchy and more confluent areas of T2 prolongation in the subcortical and periventricular white matter are nonspecific and may reflect sequela of chronic microvascular ischemia. Incidentally noted is a small developmental venous anomaly at the left frontal lobe. Scattered mild paranasal sinus mucosal thickening and mucous retention cysts. Bilateral mastoid air cells are predominantly clear. Procedure Note Ly, Erica Lelo Kassandra, DO - 12/01/2024 EXAM BRAIN MRI WITHOUT AND WITH CONTRAST - 12/01/2024 HISTORY Progressive cognitive decline. History of urothelial carcinoma COMPARISON CT head dated 12/01/2024. TECHNIQUE Multiplanar, multisequence MRI of the brain was performed before and afterthe administration of intravenous contrast. FINDINGS No acute infarct, acute intracranial hemorrhage, mass effect, midlineshift, hydrocephalus, or extra-axial fluid collection. No abnormalenhancement is identified. Generalized volume loss with proportionate prominence of the ventriclesand sulci. Patchy and more confluent areas of T2 prolongation in thesubcortical and periventricular white matter are nonspecific and mayreflect sequela of chronic microvascular ischemia. Incidentally noted kaila small developmental venous anomaly at the left frontal lobe. Scattered mild paranasal sinus mucosal thickening and mucous retentioncysts. Bilateral mastoid air cells are predominantly clear. IMPRESSION IMPRESSION 1. No acute intracranial abnormality. Specifically, no acute ischemicinfarction. 2. Generalized volume loss with patchy and more confluent areas of whitematter changes, nonspecific but likely related to chronic microvascularischemic changes. Diana CHOU RAD MRI-MRA Princess l Result * (ABNORMAL) MRSA SCREEN, PCR (12/01/2024 11:26 AM EDT) MRSA PCR Result Positive( A) Negative 12/01/2024 3:47 PM EDT LABORATORY [facility] Comment:Methicillin resistan t Staphylococcus aureus detected by PCR (amplified probe). MRSA-This patient may require isolation. Please refer to Infection Control isolation policy. Upper Respiratory Swab of internal nose / Unknown Non-blood Collection / Unknown 12/01/2024 11:26 AM EDT 12/01/2024 11:31 AM EDT Diana BRUSHNP LAB MICRO - GENERAL ORDERABLES Final Result LABORATORY [facility] [address] [place] [address] * LACTATE (12/01/2024 7:03 AM EDT) [facility] Lactate 2.0 0.4 - 2.0 mmol/L 12/01/2024 7:56 AM EDT LABORATORY [facility] Blood Venous blood specimen / Unknown Venipuncture / Unknown 12/01/2024 7:03 AM EDT 12/01/2024 7:07 AM EDT Susie Flores [facility] LAB BLOOD ORDERABLES F inal Result Performing Organization Address [facility] Co de Phone Number LABORATORY [address] [address] * (ABNORMAL) TROPONIN T, HIGH SENSITIVITY (12/01/2024 7:03 AM EDT) [facility] Troponin T, High Sensitivity 42(H) <=22 ng/L 12/01/2024 7:59 AM EDT LABORATORY [facility] Blood Venous blood specimen / Unknown Venipuncture / Unknown 12/01/2024 7:03 AM EDT 12/01/2024 7:07 AM EDT Susie [facility] LAB BLOOD ORDERABLES F inal Result Performing Organization Address City/[facility] Co de Phone Number LABORATORY [address] [address] * (ABNORMAL) MICROSCOPIC EXAM, URINE (12/01/2024 6:19 AM EDT) RBC, Urine 50+(A) 0 - 2 /HPF 12/01/2024 6:48 AM EDT LABORATORY GL WBC, Urine 20-29(A) 0 - 2 /HPF 12/01/2024 6:48 AM EDT LABORATORY GL Bacteria, Urine 0-25 0 - 25 /HPF 12/01/2024 6:48 AM EDT LABORATORY [facility] Urine Non-blood Collection / Unknown 12/01/2024 6:19 AM EDT 12/01/2024 6:28 AM EDT [facility] LAB URINE ORDERABLES F inal Result Performing Organization Address [facility] Co de Phone Number LABORATORY [address] [address] * EXTRA URINE ALIQUOT (12/01/2024 6:19 AM EDT) Urine Non-blood Collection / Unknown 12/01/2024 6:19 AM EDT 12/01/2024 6:28 AM EDT [facility] URINE ORDERABLES F inal Result Performing Organization Address [facility] de Phone Number LABORATORY [address] [address] * (ABNORMAL) URINALYSIS, REFLEX TO MICROSCOPIC (12/01/2024 6:19 AM EDT) Color, Urine Red(A) Light Yellow, Yellow, Dark Yellow 12/01/2024 6:48 AM EDT LABORATORY GL Clarity, Urine Cloudy(A) Clear 12/01/2024 6:48 AM EDT LABORATORY GL Glucose, Urine Negative Negative mg/dL 12/01/2024 6:48 AM EDT LABORATORY GL Bilirubin, Urine Small(A) Negative 12/01/2024 6:48 AM EDT LABORATORY GL Ketone, Urine Trace(A) Negative mg/dL 12/01/2024 6:48 AM EDT LABORATORY GL Specific Boykin, Urine 1.012 1.003 - 1.030 12/01/2024 6:48 AM EDT LABORATORY GL Blood, Urine Large(A) Negative 12/01/2024 6:48 AM EDT LABORATORY GL pH, Urine 6.0 5.0 - 7.5 Units 12/01/2024 6:48 AM EDT LABORATORY GLH Protein, Urine 100(A) Negative mg/dL 12/01/2024 6:48 AM EDT LABORATORY GL Urobilinogen, Urine 1.0 0.2, 1.0 mg/dL 12/01/2024 6:48 AM EDT LABORATORY GL[facility] Nitrite, Urine Positive(A) Negative 12/01/2024 6:48 AM EDT LABORATORY GLH Esterase, Urine Moderate(A) Negative 12/01/2024 6:48 AM EDT LABORATORY [facility] Urine Non-blood Collection / Unknown 12/01/2024 6:19 AM EDT 12/01/2024 6:28 AM EDT Susie Funes DO LAB URINE ORDERABLES F inal Result LABORATORY [address] [address] * TOXICOLOGY, URINE SCREEN W/ CONFIRMATION (12/01/2024 6:19 AM EDT) [facility] Amphetamines Screen, U Negative Negative 12/01/2024 11:59 AM EDT LABORATORY GL Benzodiazepines Screen, U Negative Negative 12/01/2024 11:59 AM EDT LABORATORY GL Cannabinoids Screen, U Negative Negative 12/01/2024 11:59 AM EDT LABORATORY GL Cocaine Metabolite Screen, U Negative Negative 12/01/2024 11:59 AM EDT LABORATORY GL Fentanyl Screen, U Negative Negative 2024 11:59 AM EDT LABORATORY GL Hydrocodone Screen, U Negative Negative 12/01/2024 11:59 AM EDT LABORATORY GL Methadone Metabolite Screen, U Negative Negative 12/01/2024 11:59 AM EDT LABORATORY GL Morphine/Codeine Screen, U Negative Negative 12/01/2024 11:59 AM EDT LABORATORY GL Oxycodone Screen, U Negative Negative 12/01 11:59 AM EDT LABORATORY GL Urine Non-blood Collection / Unknown 12/01/2024 6:19 AM EDT 12/01/2024 6:28 AM EDT Narrative LABORATORY [facility] - 12/01/2024 11:59 AM EDT Cutoff Concentrations: Drug Level Amphetamines 500 ng/mL Benzodiazepines 100 ng/mL Cannabinoids 50 ng/mL Cocaine Metabolite 150 ng/mL Fentanyl 1 ng/mL Hydrocodone / Hydromorphone 300 ng/mL Methadone Metabolite 100 ng/mL Morphine / Codeine 300 ng/mL Oxycodone / Oxymorphone 100 ng/mL Screening results are presumptive and can only be used for medical purposes. Positive screening results are reflexed to confirmatory testing. Susie Funes LAB URINE ORDERABLES F inal Result Performing Organization Address City/[facility] Co de Phone Number LABORATORY [address] [phone] * ABO/RH (12/01/2024 5:40 AM EDT) ABO A 12/01/2024 6:11 AM EDT LABORATORY [facility] BLOOD BANK Rh Positive 12/01/2024 6:11 AM EDT LABORATORY [facility] BLOOD BANK Blood Venous blood specimen / Unknown Venipuncture / Unknown 12/01/2024 5:40 AM EDT 12/01/2024 6:[address] [facility] BLOOD BANK TEST OR DERABLES Final Result Performing Organization Address City/[facility] Co de Phone Number LABORATORY [facility] BLOOD BANK [address] [place] [phone] * (ABNORMAL) PT INR (12/01/2024 5:40 AM EDT) Prothrombin Time 15.7(H) 11.6 - 15.2 seconds 12/01/2024 6:08 AM EDT LABORATORY [facility] INR 1.2 0.8 - 1.2 12/01/2024 6:08 AM EDT LABORATORY [facility] Blood Venous blood specimen / Unknown Venipuncture / Unknown 12/01/2024 5:40 AM EDT 12/01/2024 5:43 AM EDT Narrative LABORATORY [facility] - 12/01/2024 6:08 AM EDT Warfarin Therapy INR: 2.0-3.0 conventional anticoagulation INR: 2.5-3.5 high intensity anticoagulation us Susie Funes DO LAB BLOOD ORDERABLES F inal Result LABORATORY [address] [address] * CT ABD/PELVIS WO IV/ORAL CONTRAST (12/01/2024 5:21 AM EDT) Anatomical Region Laterality Modality Body, Abdomen, Pelvis Computed T omography 12/01/2024 5:06 AM EDT Addenda Addendum by Guru Bustamante MD on 12/01/2024 5:54 AM EDT THIS REPORT CONTAINS FINDINGS THAT MAY BE CRITICAL TO PATIENT CARE. The findings and recommendations were verbally communicated via telephone conference with SUSIE Gillespie by Dr. Bustamante on 12/01/2024 at 5:54 AM EDT. The findings were acknowledged and understood. THIS DOCUMENT HAS BEEN ELECTRONICALLY SIGNED BY GURU BUSTAMANTE MD Impressions 12/01/2024 5:49 AM EDT IMPRESSION: 1. Small pericardial effusion containing simple fluid. 2. Coronary artery calcifications. 3. 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 Aortic arch and descending thoracic aorta are normal in size. PROCEDURE INFORMATION: Exam: CT Abdomen And Pelvis Without Contrast Exam date and time: 12/01/2024 5:06 AM Age: 79 years old Clinical indication: Injury or trauma; Additional info: Eval fall for low back discomfort/pelvic discomfort for fracture - also fever consider infx - history of bladder cancer with indwelling tatum catheter, also consider intra-abdominal infection/inflammation, also hematuria consider kidney injury TECHNIQUE: Imaging protocol: Computed tomography of the abdomen and pelvis without contrast. 3D rendering (Not supervised by radiologist): MIP and/or 3D reconstructed images were created by the technologist. Radiation optimization: All CT scans at this facility use at least one of these dose optimization techniques: automated exposure control; mA and/or kV adjustment per patient size (includes targeted exams where dose is matched to clinical indication); or iterative reconstruction. COMPARISON: CT ABDOMEN PELVIS WO(Adult) 03/13/2024 4:59 PM FINDINGS: Liver: Normal. No liver mass. Gallbladder and biliary ducts: No gallstones, gallbladder wall thickening or pericholecystic fluid. Common bile duct is not dilated. Pancreas: Unremarkable. No significant pancreatic duct dilation. Spleen: Normal. No splenomegaly. Adrenal glands: Normal. No adrenal mass. Kidneys and ureters: A 1 mm nonobstructing calculus in the upper pole of the right kidney and a 2 mm nonobstructing calculus in the upper pole of the left kidney. No hydronephrosis and no ureteral calculus on either side. Stomach and bowel: No evidence of bowel obstruction, ileus, diverticulitis or colitis. No significant mucosal thickening. Appendix: No CT evidence of appendicitis. Intraperitoneal space: No free air or fluid in the abdomen. No abnormal fluid collection. Vasculature: A retrievable infrarenal IVC filter. Lymph nodes: No abdominal lymphadenopathy. Urinary bladder: Small amount of air in the bladder. Mild bladder wall thickening and adjacent fat stranding, suggestive of cystitis. A 2 cm diverticulum arising from the right posterolateral wall of the bladder and a 3 cm diverticulum arising from the left posterolateral wall of the bladder. Reproductive: A Tatum catheter terminates in the penile urethra. The inflated balloon of the Tatum catheter is inside the penile urethra. Bones/joints: Compression fractures of indeterminate age involving L2 and L3 superior endplates and resulting in mild loss of height without retropulsion into the spinal canal. Moderate degenerative joint disease at L4-L5 level. 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 [id number] degenerative joint disease in bilateral hip joints. Soft tissues: Unremarkable. IMPRESSION: 1. A Tatum catheter terminates in the penile urethra. The inflated balloon of the Tatum catheter is inside the penile urethra. The balloon needs to be deflated and the Tatum catheter needs to be repositioned. 2. Small amount of air in the bladder. Mild bladder wall thickening and adjacent fat stranding, suggestive of cystitis. A 2 cm diverticulum arising from the right posterolateral wall of the bladder and a 3 cm diverticulum arising from the left posterolateral wall of the bladder. Urology consult is recommended. 3. A 1 mm nonobstructing calculus in the upper pole of the right kidney and a 2 mm nonobstructing calculus in the upper pole of the left kidney. No hydronephrosis and no ureteral calculus on either side. 4. A retrievable infrarenal IVC filter. 5. Compression fractures of indeterminate age involving L2 and L3 superior endplates and resulting in mild loss of height without retropulsion into the spinal canal. Moderate degenerative joint disease at L4-L5 level. 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 [id number] degenerative joint disease in bilateral hip joints. COMMENTS: For patients with an IVC filter, recommend assessment for a management plan for the patient's IVC filter. If there is no established management plan, recommend referral to an interventional clinician on a nonemergent basis for evaluation. THIS DOCUMENT HAS BEEN ELECTRONICALLY SIGNED BY GURU BUSTAMANTE MD Narrative 12/01/2024 5:49 AM EDT PROCEDURE INFORMATION: Exam: CT Chest Without Contrast; Diagnostic Exam date and time: 12/01/2024 5:06 AM Age: 79 years old Clinical indication: Injury or trauma; Additional info: Eval fall for low back discomfort/pelvic discomfort for fracture - also fever consider infx - history of bladder cancer with indwelling tatum catheter, also consider intra-abdominal infection/inflammation, also hematuria consider kidney injury TECHNIQUE: Imaging protocol: Diagnostic computed tomography of the chest without contrast. 3D rendering (Not supervised by radiologist): MIP and/or 3D reconstructed images were created by the technologist. Radiation optimization: All CT scans at this facility use at least one of these dose optimization techniques: automated exposure control; mA and/or kV adjustment per patient size (includes targeted exams where dose is matched to clinical indication); or iterative reconstruction. COMPARISON: CR (CXR AP X-SWIFT GRID, CHEST, CXR AP GRID Crosswise) 12/01/2024 5:02 AM FINDINGS: Lungs: No consolidation, pulmonary edema, or lung mass. Pleural spaces: No pneumothorax. No pleural effusion. Heart: Small pericardial effusion containing simple fluid. Heart size is normal. Coronary arteries: Coronary artery calcifications. Lymph nodes: No mediastinal or axillary lymphadenopathy. 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 Aortic arch and descending thoracic aorta are normal in size. Bones/joints: No acute fracture. Soft tissues: Unremarkable. Procedure Note Guru Bustamante MD - 12/01/2024 PROCEDURE INFORMATION: Exam: CT Chest Without Contrast; Diagnostic Exam date and time: 12/01/2024 5:06 AM Age: 79 years old Clinical indication: Injury or trauma; Additional info: Eval fall for lowback discomfort/pelvic discomfort for fracture - also fever consider infx -history of bladder cancer with indwelling tatum catheter, also considerintra-abdominal infection/inflammation, also hematuria consider kidney injury TECHNIQUE: Imaging protocol: Diagnostic computed tomography of the chest withoutcontrast. 3D rendering (Not supervised by radiologist): MIP and/or 3D reconstructed images were created by the technologist. Radiation optimization: All CT scans at this facility use at least one ofthese dose optimization techniques: automated exposure control; mA and/or kV adjustment per patient size (includes targeted exams where dose is matchedto clinical indication); or iterative reconstruction. COMPARISON: CR (CXR AP X-SWIFT GRID, CHEST, CXR AP GRID Crosswise) 12/01/2024 5:02 AM FINDINGS: Lungs: No consolidation, pulmonary edema, or lung mass. Pleural spaces: No pneumothorax. No pleural effusion. Heart: Small pericardial effusion containing simple fluid. Heart size is normal. Coronary arteries: Coronary artery calcifications. Lymph nodes: No mediastinal or axillary lymphadenopathy. Vasculature: The ascending thoracic aorta is dilated to 4.3 cm indiameter. Aortic arch and descending thoracic aorta are normal in size. Bones/joints: No acute fracture. Soft tissues: Unremarkable. IMPRESSION IMPRESSION: 1. Small pericardial effusion containing simple fluid. 2. Coronary artery calcifications. 3. 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 Aorticarch and descending thoracic aorta are normal in size. PROCEDURE INFORMATION: Exam: CT Abdomen And Pelvis Without Contrast Exam date and time: 12/01/2024 5:06 AM Age: 79 years old Clinical indication: Injury or trauma; Additional info: Eval fall for lowback discomfort/pelvic discomfort for fracture - also fever consider infx -history of bladder cancer with indwelling tatum catheter, also considerintra-abdominal infection/inflammation, also hematuria consider kidney injury TECHNIQUE: Imaging protocol: Computed tomography of the abdomen and pelvis without contrast. 3D rendering (Not supervised by radiologist): MIP and/or 3D reconstructed images were created by the technologist. Radiation optimization: All CT scans at this facility use at least one ofthese dose optimization techniques: automated exposure control; mA and/or kV adjustment per patient size (includes targeted exams where dose is matchedto clinical indication); or iterative reconstruction. COMPARISON: CT ABDOMEN PELVIS WO(Adult) 03/13/2024 4:59 PM FINDINGS: Liver: Normal. No liver mass. Gallbladder and biliary ducts: No gallstones, gallbladder wall thickeningor pericholecystic fluid. Common bile duct is not dilated. Pancreas: Unremarkable. No significant pancreatic duct dilation. Spleen: Normal. No splenomegaly. Adrenal glands: Normal. No adrenal mass. Kidneys and ureters: A 1 mm nonobstructing calculus in the upper pole ofthe right kidney and a 2 mm nonobstructing calculus in the upper pole of theleft kidney. No hydronephrosis and no ureteral calculus on either side. Stomach and bowel: No evidence of bowel obstruction, ileus, diverticulitisor colitis. No significant mucosal thickening. Appendix: No CT evidence of appendicitis. Intraperitoneal space: No free air or fluid in the abdomen. No abnormalfluid collection. Vasculature: A retrievable infrarenal IVC filter. Lymph nodes: No abdominal lymphadenopathy. Urinary bladder: Small amount of air in the bladder. Mild bladder wall thickening and adjacent fat stranding, suggestive of cystitis. A 2 cm diverticulum arising from the right posterolateral wall of the bladder solomon 3 cm diverticulum arising from the left posterolateral wall of the bladder. Reproductive: A Tatum catheter terminates in the penile urethra. Theinflated balloon of the Tatum catheter is inside the penile urethra. Bones/joints: Compression fractures of indeterminate age involving L2 andL3 superior endplates and resulting in mild loss of height withoutretropulsion into the spinal canal. Moderate degenerative joint disease at L4-L5 level. 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 Ulmn-ga-tjzzopvskfmniqjvccia joint disease in bilateral hip joints. Soft tissues: Unremarkable. IMPRESSION: 1. A Tatum catheter terminates in the penile urethra. The inflatedballoon of the Tatum catheter is inside the penile urethra. The balloon needs to be deflated and the Tatum catheter needs to be repositioned. 2. Small amount of air in the bladder. Mild bladder wall thickening and adjacent fat stranding, suggestive of cystitis. A 2 cm diverticulumarising from the right posterolateral wall of the bladder and a 3 cm diverticulum arising from the left posterolateral wall of the bladder. Urology consultis recommended. 3. A 1 mm nonobstructing calculus in the upper pole of the right kidneyand a 2 mm nonobstructing calculus in the upper pole of the left kidney. No hydronephrosis and no ureteral calculus on either side. 4. A retrievable infrarenal IVC filter. 5. Compression fractures of indeterminate age involving L2 and B5pltgqvce endplates and resulting in mild loss of height without retropulsion intothe spinal canal. Moderate degenerative joint disease at L4-L5 level. 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 Pngm-ur-gwbhpbnq degenerativejoint disease in bilateral hip joints. COMMENTS: For patients with an IVC filter, recommend assessment for a managementplan for the patient's IVC filter. If there is no established management plan,recommend referral to an interventional clinician on a nonemergent basis forevaluation. THIS DOCUMENT HAS BEEN ELECTRONICALLY SIGNED BY GURU BUSTAMANTE MD Susie BLISS CT Edited Result - Final * CT CHEST WO CONTRAST (12/01/2024 5:21 AM EDT) Anatomical Region Laterality Modality Chest, Body, Cardio Computed Fred ography 12/01/2024 5:06 AM EDT Addenda Addendum by Guru Bustamante MD on 12/01/2024 5:54 AM EDT THIS REPORT CONTAINS FINDINGS THAT MAY BE CRITICAL TO PATIENT CARE. The findings and recommendations were verbally communicated via telephone conference with SUSIE Gillespie by Dr. Bustamante on 12/01/2024 at 5:54 AM EDT. The findings were acknowledged and understood. THIS DOCUMENT HAS BEEN ELECTRONICALLY SIGNED BY GURU BUSTAMANTE MD Impressions 12/01/2024 5:49 AM EDT IMPRESSION: 1. Small pericardial effusion containing simple fluid. 2. Coronary artery calcifications. 3. 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 Aortic arch and descending thoracic aorta are normal in size. PROCEDURE INFORMATION: Exam: CT Abdomen And Pelvis Without Contrast Exam date and time: 12/01/2024 5:06 AM Age: 79 years old Clinical indication: Injury or trauma; Additional info: Eval fall for low back discomfort/pelvic discomfort for fracture - also fever consider infx - history of bladder cancer with indwelling tatum catheter, also consider intra-abdominal infection/inflammation, also hematuria consider kidney injury TECHNIQUE: Imaging protocol: Computed tomography of the abdomen and pelvis without contrast. 3D rendering (Not supervised by radiologist): MIP and/or 3D reconstructed images were created by the technologist. Radiation optimization: All CT scans at this facility use at least one of these dose optimization techniques: automated exposure control; mA and/or kV adjustment per patient size (includes targeted exams where dose is matched to clinical indication); or iterative reconstruction. COMPARISON: CT ABDOMEN PELVIS WO(Adult) 03/13/2024 4:59 PM FINDINGS: Liver: Normal. No liver mass. Gallbladder and biliary ducts: No gallstones, gallbladder wall thickening or pericholecystic fluid. Common bile duct is not dilated. Pancreas: Unremarkable. No significant pancreatic duct dilation. Spleen: Normal. No splenomegaly. Adrenal glands: Normal. No adrenal mass. Kidneys and ureters: A 1 mm nonobstructing calculus in the upper pole of the right kidney and a 2 mm nonobstructing calculus in the upper pole of the left kidney. No hydronephrosis and no ureteral calculus on either side. Stomach and bowel: No evidence of bowel obstruction, ileus, diverticulitis or colitis. No significant mucosal thickening. Appendix: No CT evidence of appendicitis. Intraperitoneal space: No free air or fluid in the abdomen. No abnormal fluid collection. Vasculature: A retrievable infrarenal IVC filter. Lymph nodes: No abdominal lymphadenopathy. Urinary bladder: Small amount of air in the bladder. Mild bladder wall thickening and adjacent fat stranding, suggestive of cystitis. A 2 cm diverticulum arising from the right posterolateral wall of the bladder and a 3 cm diverticulum arising from the left posterolateral wall of the bladder. Reproductive: A Tatum catheter terminates in the penile urethra. The inflated balloon of the Tatum catheter is inside the penile urethra. Bones/joints: Compression fractures of indeterminate age involving L2 and L3 superior endplates and resulting in mild loss of height without retropulsion into the spinal canal. Moderate degenerative joint disease at L4-L5 level. 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 Bksf-ax-hlfronrh degenerative joint disease in bilateral hip joints. Soft tissues: Unremarkable. IMPRESSION: 1. A Tatum catheter terminates in the penile urethra. The inflated balloon of the Tatum catheter is inside the penile urethra. The balloon needs to be deflated and the Tatum catheter needs to be repositioned. 2. Small amount of air in the bladder. Mild bladder wall thickening and adjacent fat stranding, suggestive of cystitis. A 2 cm diverticulum arising from the right posterolateral wall of the bladder and a 3 cm diverticulum arising from the left posterolateral wall of the bladder. Urology consult is recommended. 3. A 1 mm nonobstructing calculus in the upper pole of the right kidney and a 2 mm nonobstructing calculus in the upper pole of the left kidney. No hydronephrosis and no ureteral calculus on either side. 4. A retrievable infrarenal IVC filter. 5. Compression fractures of indeterminate age involving L2 and L3 superior endplates and resulting in mild loss of height without retropulsion into the spinal canal. Moderate degenerative joint disease at L4-L5 level. 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 Laob-hd-dlnozpya degenerative joint disease in bilateral hip joints. COMMENTS: For patients with an IVC filter, recommend assessment for a management plan for the patient's IVC filter. If there is no established management plan, recommend referral to an interventional clinician on a nonemergent basis for evaluation. THIS DOCUMENT HAS BEEN ELECTRONICALLY SIGNED BY GURU UBSTAMANTE MD Narrative 12/01/2024 5:49 AM EDT PROCEDURE INFORMATION: Exam: CT Chest Without Contrast; Diagnostic Exam date and time: 12/01/2024 5:06 AM Age: 79 years old Clinical indication: Injury or trauma; Additional info: Eval fall for low back discomfort/pelvic discomfort for fracture - also fever consider infx - history of bladder cancer with indwelling tatum catheter, also consider intra-abdominal infection/inflammation, also hematuria consider kidney injury TECHNIQUE: Imaging protocol: Diagnostic computed tomography of the chest without contrast. 3D rendering (Not supervised by radiologist): MIP and/or 3D reconstructed images were created by the technologist. Radiation optimization: All CT scans at this facility use at least one of these dose optimization techniques: automated exposure control; mA and/or kV adjustment per patient size (includes targeted exams where dose is matched to clinical indication); or iterative reconstruction. COMPARISON: CR (CXR AP X-SWIFT GRID, CHEST, CXR AP GRID [facility]) 12/01/2024 5:02 AM FINDINGS: Lungs: No consolidation, pulmonary edema, or lung mass. Pleural spaces: No pneumothorax. No pleural effusion. Heart: Small pericardial effusion containing simple fluid. Heart size is normal. Coronary arteries: Coronary artery calcifications. Lymph nodes: No mediastinal or axillary lymphadenopathy. 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 Aortic arch and descending thoracic aorta are normal in size. Bones/joints: No acute fracture. Soft tissues: Unremarkable. Procedure Note Guru Bustamante MD - 12/01/2024 PROCEDURE INFORMATION: Exam: CT Chest Without Contrast; Diagnostic Exam date and time: 12/01/2024 5:06 AM Age: 79 years old Clinical indication: Injury or trauma; Additional info: Eval fall for lowback discomfort/pelvic discomfort for fracture - also fever consider infx -history of bladder cancer with indwelling tatum catheter, also considerintra-abdominal infection/inflammation, also hematuria consider kidney injury TECHNIQUE: Imaging protocol: Diagnostic computed tomography of the chest withoutcontrast. 3D rendering (Not supervised by radiologist): MIP and/or 3D reconstructed images were created by the technologist. Radiation optimization: All CT scans at this facility use at least one ofthese dose optimization techniques: automated exposure control; mA and/or kV adjustment per patient size (includes targeted exams where dose is matchedto clinical indication); or iterative reconstruction. COMPARISON: CR (CXR AP X-SWIFT GRID, CHEST, CXR AP GRID [facility]) 12/01/2024 5:02 AM FINDINGS: Lungs: No consolidation, pulmonary edema, or lung mass. Pleural spaces: No pneumothorax. No pleural effusion. Heart: Small pericardial effusion containing simple fluid. Heart size is normal. Coronary arteries: Coronary artery calcifications. Lymph nodes: No mediastinal or axillary lymphadenopathy. Vasculature: The ascending thoracic aorta is dilated to 4.3 cm indiameter. Aortic arch and descending thoracic aorta are normal in size. Bones/joints: No acute fracture. Soft tissues: Unremarkable. IMPRESSION IMPRESSION: 1. Small pericardial effusion containing simple fluid. 2. Coronary artery calcifications. 3. 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 Aorticarch and descending thoracic aorta are normal in size. PROCEDURE INFORMATION: Exam: CT Abdomen And Pelvis Without Contrast Exam date and time: 12/01/2024 5:06 AM Age: 79 years old Clinical indication: Injury or trauma; Additional info: Eval fall for lowback discomfort/pelvic discomfort for fracture - also fever consider infx -history of bladder cancer with indwelling tatum catheter, also considerintra-abdominal infection/inflammation, also hematuria consider kidney injury TECHNIQUE: Imaging protocol: Computed tomography of the abdomen and pelvis without contrast. 3D rendering (Not supervised by radiologist): MIP and/or 3D reconstructed images were created by the technologist. Radiation optimization: All CT scans at this facility use at least one ofthese dose optimization techniques: automated exposure control; mA and/or kV adjustment per patient size (includes targeted exams where dose is matchedto clinical indication); or iterative reconstruction. COMPARISON: CT ABDOMEN PELVIS WO(Adult) 03/13/2024 4:59 PM FINDINGS: Liver: Normal. No liver mass. Gallbladder and biliary ducts: No gallstones, gallbladder wall thickeningor pericholecystic fluid. Common bile duct is not dilated. Pancreas: Unremarkable. No significant pancreatic duct dilation. Spleen: Normal. No splenomegaly. Adrenal glands: Normal. No adrenal mass. Kidneys and ureters: A 1 mm nonobstructing calculus in the upper pole ofthe right kidney and a 2 mm nonobstructing calculus in the upper pole of theleft kidney. No hydronephrosis and no ureteral calculus on either side. Stomach and bowel: No evidence of bowel obstruction, ileus, diverticulitisor colitis. No significant mucosal thickening. Appendix: No CT evidence of appendicitis. Intraperitoneal space: No free air or fluid in the abdomen. No abnormalfluid collection. Vasculature: A retrievable infrarenal IVC filter. Lymph nodes: No abdominal lymphadenopathy. Urinary bladder: Small amount of air in the bladder. Mild bladder wall thickening and adjacent fat stranding, suggestive of cystitis. A 2 cm diverticulum arising from the right posterolateral wall of the bladder solomon 3 cm diverticulum arising from the left posterolateral wall of the bladder. Reproductive: A Tatum catheter terminates in the penile urethra. Theinflated balloon of the Tatum catheter is inside the penile urethra. Bones/joints: Compression fractures of indeterminate age involving L2 andL3 superior endplates and resulting in mild loss of height withoutretropulsion into the spinal canal. Moderate degenerative joint disease at L4-L5 level. 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 Igic-bv-nhwyztdaodhazriofrwb joint disease in bilateral hip joints. Soft tissues: Unremarkable. IMPRESSION: 1. A Tatum catheter terminates in the penile urethra. The inflatedballoon of the Tatum catheter is inside the penile urethra. The balloon needs to be deflated and the Tatum catheter needs to be repositioned. 2. Small amount of air in the bladder. Mild bladder wall thickening and adjacent fat stranding, suggestive of cystitis. A 2 cm diverticulumarising from the right posterolateral wall of the bladder and a 3 cm diverticulum arising from the left posterolateral wall of the bladder. Urology consultis recommended. 3. A 1 mm nonobstructing calculus in the upper pole of the right kidneyand a 2 mm nonobstructing calculus in the upper pole of the left kidney. No hydronephrosis and no ureteral calculus on either side. 4. A retrievable infrarenal IVC filter. 5. Compression fractures of indeterminate age involving L2 and X3hgeqgegx endplates and resulting in mild loss of height without retropulsion intothe spinal canal. Moderate degenerative joint disease at L4-L5 level. 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 Xjco-mr-ynimghcl degenerativejoint disease in bilateral hip joints. COMMENTS: For patients with an IVC filter, recommend assessment for a managementplan for the patient's IVC filter. If there is no established management plan,recommend referral to an interventional clinician on a nonemergent basis forevaluation. THIS DOCUMENT HAS BEEN ELECTRONICALLY SIGNED BY GURU BUSTAMANTE MD us Susie Funes DO RAD CT Edited Result - Final * CT C SPINE WO CONTRAST (12/01/2024 5:21 AM EDT) Anatomical Region Laterality Modality Cspine, Spine, Neck, Vertebra Co mputed Tomography 12/01/2024 5:06 AM EDT Impressions 12/01/2024 5:30 AM EDT IMPRESSION: No acute findings. THIS DOCUMENT HAS BEEN ELECTRONICALLY SIGNED BY LUKE TRAN MD Narrative 12/01/2024 5:30 AM EDT PROCEDURE INFORMATION: Exam: CT Cervical Spine Without Contrast Exam date and time: 12/01/2024 5:06 AM Age: 79 years old Clinical indication: Injury or trauma; Additional info: Significant trauma with possible severe neurologic injury or neck pain, midline neck pain, evaluate c-spine fracture in the setting of fall TECHNIQUE: Imaging protocol: Computed tomography of the cervical spine without contrast. Radiation optimization: All CT scans at this facility use at least one of these dose optimization techniques: automated exposure control; mA and/or kV adjustment per patient size (includes targeted exams where dose is matched to clinical indication); or iterative reconstruction. COMPARISON: MRI CARDIAC, ADULT W WO CONTRAST 09/13/2023 9:12 AM FINDINGS: Bones/joints: No acute fracture. Normal alignment. There is ebwu-tx-yewkewki multilevel degenerative disc disease. The spinal canal appears patent. Lungs: Lung apices are normal. Soft tissues: Unremarkable. Procedure Note Luke Tran MD - 12/01/2024 PROCEDURE INFORMATION: Exam: CT Cervical Spine Without Contrast Exam date and time: 12/01/2024 5:06 AM Age: 79 years old Clinical indication: Injury or trauma; Additional info: Significant traumawith possible severe neurologic injury or neck pain, midline neck pain,evaluate c-spine fracture in the setting of fall TECHNIQUE: Imaging protocol: Computed tomography of the cervical spine withoutcontrast. Radiation optimization: All CT scans at this facility use at least one ofthese dose optimization techniques: automated exposure control; mA and/or kV adjustment per patient size (includes targeted exams where dose is matchedto clinical indication); or iterative reconstruction. COMPARISON: MRI CARDIAC, ADULT W WO CONTRAST 09/13/2023 9:12 AM FINDINGS: Bones/joints: No acute fracture. Normal alignment. There vxuaqi-yc-gskzqnem multilevel degenerative disc disease. The spinal canal appears patent. Lungs: Lung apices are normal. Soft tissues: Unremarkable. IMPRESSION IMPRESSION: No acute findings. THIS DOCUMENT HAS BEEN ELECTRONICALLY SIGNED BY LUKE TRAN MD Susie Funes DO RAD CT Final Result * CT HEAD/BRAIN WO CONTRAST (12/01/2024 5:21 AM EDT) Anatomical Region Laterality Modality Head Computed Tomogra phy 12/01/2024 5:06 AM EDT Impressions 12/01/2024 5:27 AM EDT IMPRESSION: Mild small vessel disease. No evidence of acute intracranial process. THIS DOCUMENT HAS BEEN ELECTRONICALLY SIGNED BY LUKE TRAN MD Narrative 12/01/2024 5:27 AM EDT PROCEDURE INFORMATION: Exam: CT Head Without Contrast Exam date and time: 12/01/2024 5:06 AM Age: 79 years old Clinical indication: Injury or trauma; Additional info: Significant trauma with possible severe neurologic injury or head pain -fall on anticoagulation with loss of consciousness, evaluate intracranial hemorrhage TECHNIQUE: Imaging protocol: Computed tomography of the head without contrast. Radiation optimization: All CT scans at this facility use at least one of these dose optimization techniques: automated exposure control; mA and/or kV adjustment per patient size (includes targeted exams where dose is matched to clinical indication); or iterative reconstruction. COMPARISON: CT C SPINE WO CONTRAST 12/01/2024 5:06 AM FINDINGS: Brain: There is mild small vessel disease. There is no evidence of acute parenchymal hemorrhage, extra-axial collection, or acute infarction. There is no mass effect, midline shift, or downward herniation. Cerebral ventricles: No ventriculomegaly. Paranasal sinuses: There is a moderate-sized right sphenoid sinus fluid level. There is mild additional paranasal sinus disease. Mastoid air cells: Visualized mastoid air cells are well aerated. Bones: Unremarkable. No acute fracture. Soft tissues: Unremarkable. Procedure Note Luke Tran MD - 12/01/2024 PROCEDURE INFORMATION: Exam: CT Head Without Contrast Exam date and time: 12/01/2024 5:06 AM Age: 79 years old Clinical indication: Injury or trauma; Additional info: Significant traumawith possible severe neurologic injury or head pain -fall on anticoagulationwith loss of consciousness, evaluate intracranial hemorrhage TECHNIQUE: Imaging protocol: Computed tomography of the head without contrast. Radiation optimization: All CT scans at this facility use at least one ofthese dose optimization techniques: automated exposure control; mA and/or kV adjustment per patient size (includes targeted exams where dose is matchedto clinical indication); or iterative reconstruction. COMPARISON: CT C SPINE WO CONTRAST 12/01/2024 5:06 AM FINDINGS: Brain: There is mild small vessel disease. There is no evidence of acute parenchymal hemorrhage, extra-axial collection, or acute infarction.There is no mass effect, midline shift, or downward herniation. Cerebral ventricles: No ventriculomegaly. Paranasal sinuses: There is a moderate-sized right sphenoid sinus fluidlevel. There is mild additional paranasal sinus disease. Mastoid air cells: Visualized mastoid air cells are well aerated. Bones: Unremarkable. No acute fracture. Soft tissues: Unremarkable. IMPRESSION IMPRESSION: Mild small vessel disease. No evidence of acute intracranial process. THIS DOCUMENT HAS BEEN ELECTRONICALLY SIGNED BY LUKE TRAN MD Susie Funes DO RAD CT Final Result * XR PELVIS 1 VIEW (12/01/2024 5:16 AM EDT) Anatomical Region Laterality Modality Pelvis, Lower Extremity Digital Radiography 12/01/2024 5:09 AM EDT Impressions 12/01/2024 5:36 AM EDT IMPRESSION: 1. No acute fracture or dislocation. 2. 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 3. A retrievable infrarenal IVC filter. COMMENTS: For patients with an IVC filter, recommend assessment for a management plan for the patient's IVC filter. If there is no established management plan, recommend referral to an interventional clinician on a nonemergent basis for evaluation. THIS DOCUMENT HAS BEEN ELECTRONICALLY SIGNED BY GURU BUSTAMANTE MD Narrative 12/01/2024 5:36 AM EDT PROCEDURE INFORMATION: Exam: XR Pelvis Exam date and time: 12/01/2024 5:09 AM Age: 79 years old Clinical indication: Other: Trauma TECHNIQUE: Imaging protocol: Radiologic exam of the pelvis. Views: 1 or 2 view. COMPARISON: CT ABD/PELVIS WO IV/ORAL CONTRAST 12/01/2024 5:06 AM FINDINGS: Bones/joints: No acute fracture or dislocation. Soft tissues: Unremarkable. 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 Vasculature: A retrievable infrarenal IVC filter. Procedure Note Guru Bustamante MD - 12/01/2024 PROCEDURE INFORMATION: Exam: XR Pelvis Exam date and time: 12/01/2024 5:09 AM Age: 79 years old Clinical indication: Other: Trauma TECHNIQUE: Imaging protocol: Radiologic exam of the pelvis. Views: 1 or 2 view. COMPARISON: CT ABD/PELVIS WO IV/ORAL CONTRAST 12/01/2024 5:06 AM FINDINGS: Bones/joints: No acute fracture or dislocation. Soft tissues: Unremarkable. 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 Vasculature: A retrievable infrarenal IVC filter. IMPRESSION IMPRESSION: 1. No acute fracture or dislocation. 2. 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 3. A retrievable infrarenal IVC filter. COMMENTS: For patients with an IVC filter, recommend assessment for a managementplan for the patient's IVC filter. If there is no established management plan,recommend referral to an interventional clinician on a nonemergent basis forevaluation. THIS DOCUMENT HAS BEEN ELECTRONICALLY SIGNED BY GURU BUSTAMANTE MD us Susie Funes DO RADIOLOGY (RAD GENERAL ) Final Result * XR CHEST 1 VIEW (12/01/2024 5:16 AM EDT) Anatomical Region Laterality Modality Chest Digital Radiogra phy 12/01/2024 5:02 AM EDT Impressions 12/01/2024 5:34 AM EDT IMPRESSION: No acute findings. THIS DOCUMENT HAS BEEN ELECTRONICALLY SIGNED BY GURU BUSTAMANTE MD Narrative 12/01/2024 5:34 AM EDT PROCEDURE INFORMATION: Exam: XR Chest Exam date and time: 12/01/2024 5:02 AM Age: 79 years old Clinical indication: Other: Trauma TECHNIQUE: Imaging protocol: Radiologic exam of the chest. Views: 1 view. COMPARISON: DX XR CHEST 1 VIEW 09/10/2023 4:31 PM FINDINGS: Lungs: No consolidation or pulmonary edema. Pleural spaces: No pleural effusion. No pneumothorax. Heart/Mediastinum: Cardiomediastinal silhouette is normal in size. Vasculature: Atherosclerotic calcifications in the thoracic aorta. Bones/joints: No acute fractures. Procedure Note Guru Bustamante MD - 12/01/2024 PROCEDURE INFORMATION: Exam: XR Chest Exam date and time: 12/01/2024 5:02 AM Age: 79 years old Clinical indication: Other: Trauma TECHNIQUE: Imaging protocol: Radiologic exam of the chest. Views: 1 view. COMPARISON: DX XR CHEST 1 VIEW 09/10/2023 4:31 PM FINDINGS: Lungs: No consolidation or pulmonary edema. Pleural spaces: No pleural effusion. No pneumothorax. Heart/Mediastinum: Cardiomediastinal silhouette is normal in size. Vasculature: Atherosclerotic calcifications in the thoracic aorta. Bones/joints: No acute fractures. IMPRESSION IMPRESSION: No acute findings. THIS DOCUMENT HAS BEEN ELECTRONICALLY SIGNED BY GURU BUSTAMANTE MD [facility] Mark Funes DO RADIOLOGY ([facility] ) Final Result * RESPIRATORY PATHOGEN PANEL, PCR (12/01/2024 5:11 AM EDT) Adenovirus Negative Negative 12/01/2024 6:16 AM EDT [facility] Coronavirus 229E Negative Negative 12/02/19 6:16 AM EDT [facility] Coronavirus HKU1 Negative Negative 12/02/19 6:16 AM EDT [facility] Coronavirus NL63 Negative Negative 12/02/19 6:16 AM EDT [facility] Coronavirus OC43 Negative Negative 12/02/19 6:16 AM EDT [facility] Coronavirus SARS-CoV-2 Negative Negative 12/01/2024 6:16 AM EDT [facility] Human Metapneumovirus Negative Negative 12/01/2024 6:16 AM EDT [facility] Rhinovirus/Enterovi judy Negative Negative 12/01/2024 6:16 AM EDT [facility] Influenza A Negative Negative 12/01/2024 6:16 AM EDT [facility] Influenza B Negative Negative 12/01/2024 6:16 AM EDT [facility] Parainfluenza Virus 1 Negative Negative 12/01/2024 6:16 AM EDT [facility] Parainfluenza Virus 2 Negative Negative 12/01/2024 6:16 AM EDT [facility] Parainfluenza Virus 3 Negative Negative 12/01/2024 6:16 AM EDT [facility] Parainfluenza Virus 4 Negative Negative 12/01/2024 6:16 AM EDT [facility] Respiratory Syncytial Virus Negative Negative 12/01/2024 6:16 AM EDT [facility] Bordetella pertussis Negative Negative 12/01/2024 6:16 AM EDT [facility] Chlamydia pneumoniae Negative Negative 12/01/2024 6:16 AM EDT [facility] Mycoplasma pneumoniae Negative Negative 12/01/2024 6:16 AM EDT [facility] Bordetella parapertussis Negative Negative 12/01/2024 6:16 AM EDT [facility] Comment: The primers that detect Rhinovirus may cross react with some Enterorviruses. The validation of bronchial specimens, tracheal aspirates, and throats for this assay was developed and performance characteristics determined by [email or web address]. The validation of alternate specimen types has not been cleared or approved by the U.S. Food and Drug Administration (FDA). It has been determined that such clearance or approval is not necessary. Upper Respiratory Mid-turbinate nasal swab / Unknown Non-blood Collection / Unknown 12/01/2024 5:11 AM EDT 12/01/2024 5:14 AM EDT Susie Funes DO LAB MICRO - GENERAL OR DERABLES Final Result LABORATORY [address] [address] * (ABNORMAL) DIFFERENTIAL, AUTOMATED (12/01/2024 5:10 AM EDT) WBC 11.99(H) 4.00 - 10.80 K/uL 12/01/2024 5:20 AM EDT [facility] Neutrophils % 79.2(H) 40.0 - 75.0 % 12/01/2024 5:20 AM EDT [facility] Lymphocytes % 12.5(L) 18.0 - 42.0 % 12/01/2024 5:20 AM EDT [facility] Monocytes % 7.0 1.0 - 11.0 % 12/01/2024 5:20 AM EDT [facility] Eosinophils % 0.5 0.0 - 6.0 % 12/01/2024 5:20 AM EDT LABORATORY [facility] Basophils % 0.3 0.0 - 2.0 % 12/01/2024 5:20 AM EDT LABORATORY GL Immature Granulocytes % 0.5 0.0 - 2.0 % 12/01/2024 5:20 AM EDT LABORATORY GL Absolute Neutrophils 9.49(H) 1.80 - 7.70 K/uL 12/01/2024 5:20 AM EDT LABORATORY GL Absolute Lymphocytes 1.50 1.00 - 4.80 K/ul 12/01/2024 5:20 AM EDT LABORATORY GL Absolute Monocytes 0.84 0.00 - 1.10 K/uL 12/01/2024 5:20 AM EDT LABORATORY GL Absolute Eosinophils 0.06 0.00 - 0.70 K/uL 12/01/2024 5:20 AM EDT LABORATORY GL Absolute Basophils 0.04 0.00 - 0.20 K/uL 12/01/2024 5:20 AM EDT LABORATORY GL Absolute Immature Granulocytes 0.06 0.00 - 0.20 K/uL 12/01/2024 5:20 AM EDT LABORATORY GL Blood Venous blood specimen / Unknown Venipuncture / Unknown 12/01/2024 5:10 AM EDT 12/01/2024 5:13 AM EDT us Susie Funes DO LAB BLOOD ORDERABLES F inal Result LABORATORY [address] [address] * (ABNORMAL) CBC (12/01/2024 5:10 AM EDT) Pathologist [facility] WBC 11.99(H) 4.00 - 10.80 K/uL 12/01/2024 5:20 AM EDT LABORATORY [facility] RBC 4.51 4.50 - 5.25 M/uL 12/01/2024 5:20 AM EDT LABORATORY GL HGB 13.3(L) 14.0 - 16.8 g/dL 12/01/2024 5:20 AM EDT LABORATORY [facility] HCT 40.3 40.0 - 48.4 % 12/01/2024 5:20 AM EDT [facility] MCV 89.4 82.0 - 99.5 fL 12/01/2024 5:20 AM EDT [facility] MCH 29.5 27.0 - 34.0 pg 12/01/2024 5:20 AM EDT [facility] MCHC 33.0 32.0 - 36.0 g/dL 12/01/2024 5:20 AM EDT [facility] RDW 15.9 11.5 - 15.5 % 12/01/2024 5:20 AM EDT [facility] PLT 233 140 - 400 K/uL 12/01/2024 5:20 AM EDT [facility] MPV 9.4 6.6 - 11.1 fL 12/01/2024 5:20 AM EDT [facility] NRBCs 0 <=0 /100 WBCs 12/01/2024 5:20 AM EDT [facility] Blood Venous blood specimen / Unknown Venipuncture / Unknown 12/01/2024 5:10 AM EDT 12/01/2024 5:13 AM EDT Susie Funes DO LAB BLOOD ORDERABLES F inal Result LABORATORY [address] [address] * (ABNORMAL) PROCALCITONIN (12/01/2024 5:10 AM EDT) Procalcitonin 0.13(H) <0.10 ng/mL 12/01/2024 5:47 AM EDT [facility] Blood Venous blood specimen / Unknown Venipuncture / Unknown 12/01/2024 5:10 AM EDT 12/01/2024 5:13 AM EDT Narrative [facility] - 12/01/2024 5:47 AM EDT Less than 0.5 ng/mL: Low risk for progression to sepsis. Review patients condition for localized infections. 0.5 to 2.0 ng/mL: Intermediate risk for progresion to sepsis. Review underlying conditions. Recommend repeat PCT after 6 hours has elapsed. Greater than 2.0 ng/mL: high risk for progression to sepsis unless other causes are known. [facility] LAB BLOOD ORDERABLES F inal Result Performing Organization Address [facility] de Phone Number LABORATORY [address] [address] * (ABNORMAL) TROPONIN T, HIGH SENSITIVITY (12/01/2024 5:10 AM EDT) Troponin T, High Sensitivity 44(H) <=22 ng/L 12/01/2024 5:39 AM EDT [facility] Comment:Result may be falsel y decreased due to hemolysis. Blood Venous blood specimen / Unknown Venipuncture / Unknown 12/01/2024 5:10 AM EDT 12/01/2024 5:13 AM EDT [facility] LAB BLOOD ORDERABLES F inal Result Performing Organization Address [facility] de Phone Number LABORATORY [address] [address] * (ABNORMAL) BNP, NT-PRO (12/01/2024 5:10 AM EDT) Pathologist [facility] BNP, NT-Pro 477(H) <300 pg/mL 12/01/2024 5:47 AM EDT [facility] Blood Venous blood specimen / Unknown Venipuncture / Unknown 12/01/2024 5:10 AM EDT 12/01/2024 5:13 AM EDT Narrative [facility] - 12/01/2024 5:47 AM EDT Exclude Heart Failure: <300 pg/mL Diagnose Heart Failure: Age <50 yr: >450 pg/mL 50-75 yr: >900 pg/mL >75 yr: >1800 pg/mL GFR is 30-59 mL/min: >1200 pg/mL or Age-adjusted values GFR <30 mL/min: do not use, not reliable Prognostic threshold: 1000 pg/mL [facility] LAB BLOOD ORDERABLES F inal Result Performing Organization Address City/[facility] Co de Phone Number LABORATORY [address] [phone] * TYPE AND SCREEN (12/01/2024 5:10 AM EDT) ABO A 12/01/2024 6:05 AM EDT [facility] BLOOD BANK Rh Positive 12/01/2024 6:05 AM EDT [facility] BLOOD BANK Red Blood Cell Antibody Screen Negative 12/01/2024 6:05 AM EDT [facility] BLOOD BANK Specimen Expiration Date 12/04/2024 23:59 12/01/2024 6:05 AM EDT [facility] BLOOD BANK Blood Venous blood specimen / Unknown Venipuncture / Unknown 12/01/2024 5:10 AM EDT 12/01/2024 5:13 AM EDT Susie Flores [facility] LAB BLOOD BANK TEST OR DERABLES Final Result Performing Organization Address [facility] de Phone Number [facility]AT[facility] BLOOD BANK [address] [place] [phone] * (ABNORMAL) LACTATE,WHOLE BLOOD (12/01/2024 5:10 AM EDT) Pathologist [facility] Lactate 3.1(H) 0.4 - 2.0 mmol/L 12/01/2024 5:25 AM EDT [facility] Blood Venous blood specimen / Unknown Venipuncture / Unknown 12/01/2024 5:10 AM EDT 12/01/2024 5:13 AM EDT Susie Flores [facility] LAB BLOOD ORDERABLES F inal Result Performing Organization Address City/[facility] Co de Phone Number LABORATORY [address] [phone] * ETHANOL, MEDICAL (12/01/2024 5:10 AM EDT) Ethanol Negative Negative 12/01/2024 5:58 AM EDT LAB[facility]ATORY [facility] Blood Venous blood specimen / Unknown Venipuncture / Unknown 12/01/2024 5:10 AM EDT 12/01/2024 5:13 AM EDT Susie Flores [facility] LAB BLOOD ORDERABLES F inal Result LABORATORY [facility] [address] [place] [address] * (ABNORMAL) COMPREHENSIVE METABOLIC PANEL (12/01/2024 5:10 AM EDT) BUN 16 6 - 20 mg/dL 12/01/2024 5:58 AM EDT LAB[facility]ATORY [facility] CREATININE 1.7(H) 0.6 - 1.2 mg/dL 12/01/2024 5:58 AM EDT LAB[facility]ATORY [facility] EGFR 42(L) >=60 mL/min 12/01/2024 5:58 AM EDT LAB[facility]ORY [facility] Comment:eGFR is calculated b ased on the CKD-EPI 2020 equation. SODIUM 141 135 - 146 mmol/L 12/01/2024 5:58 AM EDT LAB[facility]ORY [facility] POTASSIUM 4.0 3.5 - 5.1 mmol/L 12/01/2024 5:58 AM EDT [facility]ORY [facility] Comment:Results may be false ly elevated due to hemolysis. CHLORIDE 103 98 - 107 mmol/L 12/01/2024 5:58 AM EDT LAB[facility]ORY [facility] CO2 22 22 - 32 mmol/L 12/01/2024 5:58 AM EDT [facility] ANION GAP 16(H) 7 - 15 mmol/L 12/01/2024 5:58 AM EDT [facility] GLUCOSE 99 70 - 120 mg/dL 12/01/2024 5:58 AM EDT [facility] Albumin 3.7(L) 3.8 - 5.0 g/dL 12/01/2024 5:58 AM EDT [facility]ORY [facility] AST 38 10 - 50 U/L 12/01/2024 5:58 AM EDT [facility] Comment:Results may be false ly elevated due to hemolysis. Alkaline Phosphatase 111 35 - 130 U/L 12/01/2024 5:58 AM EDT LAB[facility]ORY [facility] Bilirubin, Total 0.8 <=1.2 mg/dL 12/01/2024 5:58 AM EDT [facility]ORY [facility] CALCIUM 9.0 8.4 - 10.2 mg/dL 12/01/2024 5:58 AM EDT LAB[facility]ORY [facility] Protein 6.5 6.0 - 8.3 g/dL 12/01/2024 5:58 AM EDT LAB[facility]ORY [facility] ALT 10 10 - 50 U/L 12/01/2024 5:58 AM EDT LAB[facility]ORY [facility] Comment:Results may be false ly elevated due to hemolysis. Blood Venous blood specimen / Unknown Venipuncture / Unknown 12/01/2024 5:10 AM EDT 12/01/2024 5:13 AM EDT Susie Funes DO LAB BLOOD ORDERABLES F inal Result Performing Organization Address City/[facility]/ZIP Co de Phone Number LABORATORY GL [address] [place] [address] * GLUCOSE METER, POINT OF CARE (12/01/2024 5:01 AM EDT) [facility] Glucose - POCT 101 70 - 120 mg/dL 12/01/2024 5:04 AM EDT [facility] Blood Whole blood specimen / Unknown 12/01/2024 5:01 AM EDT 12/01/2024 5:04 AM EDT Susie Funes DO LAB POINT OF C ARE TEST DOCKED DEVICE UNSOLICITED RESULTS Final Result Performing Organization Address [facility] Co de Phone Number [facility] [address] [place] [address] documented in this encounter Visit Diagnoses Diagnosis Sepsis with acute renal failure (HCC)- Primary Fall Unspecified fall Hematuria, unspecified type Complicated UTI (urinary tract infection) Urinary tract infection, site not specified Chronic anticoagulation Long-term (current) use of anticoagulants Tatum catheter in place Other postprocedural status Chest pain Chest pain, unspecified Febrile illness Fever, unspecified Disorder of brain, unspecified Exposure to other specified factors, initial encounter Enterococcus UTI Urinary tract infection, site not specified Fall at home Unspecified fall Chronic anticoagulation Long-term (current) use of anticoagulants Adrenal insufficiency (HCC) Glucocorticoid deficiency History of pulmonary embolism Personal history of pulmonary embolism History of DVT in adulthood Mild cognitive impairment Mild cognitive impairment, so stated 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 Given 12/01/2024 5:29 AM EDT 975 mg Acetaminophen (Tylenol) tab 975 mg 975 mg, Oral, Q6H PRN Pain, Mild, Fever >38C(100.5F), Starting on Wed12/01/24 at 0930, Until 12/02/24 at 1615, Maximum of 4 grams (4000 mg) per day. Apixaban (Eliquis) tab 2.5 mg 2.5 mg, Oral, BID (.AM/PM), First dose on Wed12/01/24 at 1000, Until Discontinued Given 12/02/2024 9:11 AM EDT 2.5 mg Given 12/01/2024 8:40 PM EDT 2.5 mg Bisacodyl (Dulcolax) supp 10 mg 10 mg, Rectal, DAILY PRN Constipation, Starting on Wed12/04/24 at 0930, Until 12/02/24 at 1615, Administer if no bowel movement within past 72 hours and patient unable to take oral medications. Bisacodyl (Dulcolax) tab 5 mg 5 mg, Oral, DAILY PRN Constipation, Starting on Wed12/04/24 at 0930, Until 12/02/24 at 1615, Administer in addition to polyethylene glycol and senna-docusate if no bowel movement in past 72 hours. cefTRIAXone in dextrose (Rocephin) IVPB 1 g IV Piggyback, 1 g, ONCE, 1 dose, On Wed12/01/24 at 0730, Administer over 30 Minutes New Bag 12/01/2024 7:28 AM EDT 1 g 100 mL/hr cefTRIAXone in dextrose (Rocephin) IVPB 1 g IV Piggyback, 1 g, Q24H, 5 doses, First dose on Wed12/02/24 at 0700, Last dose on Wed12/06/24 at 0700, Administer over 30 Minutes New Bag 12/02/2024 5:48 AM EDT 1 g 100 mL/hr Fludrocortisone Acetate (Florinef) tab 100 mcg 100 mcg, Oral, Daily(AM), First dose on Wed12/01/24 at 1000, Until Discontinued Given 12/02/2024 9:12 AM EDT 100 mcg Given 12/01/2024 11:12 AM EDT 100 mcg gadobutrol (Gadavist) inj 10.1 mL 10.1 mL (rounded from 10.07 mL = 0.1 mL/kg 100.7 kg), Intravenous, ONCE, On Wed12/01/24 at 1415, For 1 dose, Radiology Medication Routing (Non-IR) Given 12/01/2024 2:27 PM EDT 10 mL Wrist Right Hydrocortisone (Cortef) tab 10 mg 10 mg, Oral, [id number], First dose on Wed12/01/24 at 1500, Until Discontinued Given 12/01/2024 3:02 PM EDT 10 mg Hydrocortisone (Cortef) tab 20 mg 20 mg, Oral, Daily(AM), First dose on Wed12/01/24 at 1000, Until Discontinued Given 12/02/2024 9:11 AM EDT 20 mg Given 12/01/2024 11:10 AM EDT 20 mg isolyte 500 mL bolus infusion Intravenous, Administer entire volume within 60 minutes or less. Plasma-LYTE 148, isolyte-S, and isolyte-S pH 7.4 are considered equivalent - including for MAR barcode scanning., ONCE, 1 dose, On Wed12/01/24 at 1030 KVO 12/01/2024 12:09 PM EDT 5 mL/hr New Bag 12/01/2024 11:10 AM EDT 500 mL 500 mL/hr Linezolid (Zyvox) tab 600 mg 600 mg, Oral, Q12H, First dose on Wed12/01/24 at 1000, Last dose on Wed12/07/24 at 2100, For 7 days Given 12/02/2024 9:12 AM EDT 600 mg Given 12/01/2024 8:40 PM EDT 600 mg Given 12/01/2024 10:34 AM EDT 600 mg melatonin tab 3 mg 3 mg, Oral, HS PRN Insomnia, Starting on Wed12/01/24 at 0930, Until 12/02/24 at 1615 Given 12/01/2024 8:40 PM EDT 3 mg memantine (Namenda) tab 10 mg 10 mg, Oral, BID (.AM/PM), First dose on Wed12/01/24 at 1000, Until Discontinued Given 12/02/2024 9:11 AM EDT 10 mg Given 12/01/2024 8:40 PM EDT 10 mg Given 12/01/2024 11:08 AM EDT 10 mg NSS 0.9% 500 mL bolus infusion IV Piggyback, Wide open, This infusion may be completed in less than 1 hour, since it will be a wide open rate, ONCE, 1 dose, On Wed12/01/24 at 0545 New Bag 12/01/2024 5:28 AM EDT 500 mL 1000 mL/hr omeprazole (PriLOSEC) cap 20 mg 20 mg, Oral, Daily(AM), First dose on Wed12/01/24 at 1000, Until Discontinued, This med should NOT be Crushed or Chewed Given 12/02/2024 9:11 AM EDT 20 mg Given 12/01/2024 11:08 AM EDT 20 mg ondansetron (Zofran) inj 4 mg 4 mg, IV Push, Q6H PRN Nausea, Starting on Wed12/01/24 at 0930, Until 12/02/24 at 1615 oxyBUTYnin (Ditropan) tab 5 mg 5 mg, Oral, BID (.AM/PM), First dose on Wed12/01/24 at 2100, Until Discontinued Given 12/02/2024 9:11 AM EDT 5 mg Given 12/01/2024 8:40 PM EDT 5 mg oxygen GAS Inhalation, OXYGEN, First dose on Wed12/01/24 at 0800, Until Discontinued, Device/Managed by: Low Flow Device, Goal SPO2 (%): 94 or greater, Starting Device: Nasal Cannula, Initial Flow Rate (LPM): 2, Lowest Support: Nasal Cannula: Flow 0-6 LPM. Titrate up/down by 1 LPM., Titration Interval: Q2 minutes and as needed., Notify Provider: For sudden DECREASE in resting SPO2 to less than 85% and when escalating delivery device., Wean patient off Oxygen when the oxygen saturation is greater than or equal to 93% Polyethylene Glycol 3350 (Miralax) oral powder 17 g 17 g (1 Packet), Oral, DAILY PRN Constipation, Starting on Wed12/01/24 at 0930, Until 12/02/24 at 1615, Administer if no bowel movement within past 24 hours. senna-docusate (Senokot-S) 1 Tablet 1 Tablet, Oral, BID PRN Constipation, Starting on Wed12/03/24 at 0930, Until 12/02/24 at 1615, Administer in addition to polyethylene glycol if no bowel movement within past 48 hours. sodium chloride 0.9 % flush peripheral mariel 3 mL 3 mL, IV Push, Q8H, First dose on Wed12/01/24 at 0600, Until Discontinued, Do not flush if lock, PICC, or central line not in place; IV infusing or unable to flush. Given 12/02/2024 5:48 AM EDT 3 mL Given 12/01/2024 8:41 PM EDT 3 mL Given 12/01/2024 10:32 AM EDT 3 mL sodium chloride 0.9 % flush/inj 3 mL 3 mL, IV Push, PRN Other, Line Patency, Starting on Wed12/01/24 at 0929, Until 12/02/24 at 1615, Do not flush if lock, PICC, or central line not in place, IV infusing or unable to flush documented in this encounter Active and Recently Administered Medications Times are shown in EDT. Scheduled Medication Order 11/30/2024 12/01/2024 12/02/2024 Acetaminophen (Tylenol) tab 975 mg (COMPLETED) 975 mg, Oral, ONCE, On Wed12/01/24 at 0545, For 1 dose, Maximum of 4 grams (4000 mg) per day. 0529 (Given - Provider: Reina Renee RN) Apixaban (Eliquis) tab 2.5 mg 2.5 mg, Oral, BID (.AM/PM), First dose on Wed12/01/24 at 1000, Until Discontinued 1000 (Not Given - Provider: Keshia Preston RN - Reason: Other-Notify Provider - Comment: to hold per Diana Desai d/t bleeding around catheter)2039 (Given - Provider: Mita Mejias RN) 09 (Given - Provider: Domitila Wagner, RN) cefTRIAXone in dextrose (Rocephin) IVPB 1 g (COMPLETED) IV Piggyback, 1 g, ONCE, 1 dose, On Wed12/01/24 at 0730, Administer over 30 Minutes 0728 (New Bag - Provider: Alla Plascencia, HOLLEY)0828 (Stopped - Provider: Alla Plascencia RN) cefTRIAXone in dextrose (Rocephin) IVPB 1 g IV Piggyback, 1 g, Q24H, 5 doses, First dose on Wed12/02/24 at 0700, Last dose on Wed12/06/24 at 0700, Administer over 30 Minutes 0548 (New Bag - Provider: Mita Mejias RN)0618 (Stopped - Provider: Mita Mejias RN) Fludrocortisone Acetate (Florinef) tab 100 mcg 100 mcg, Oral, Daily(AM), First dose on Wed12/01/24 at 1000, Until Discontinued 1112 (Given - Provider: Keshia Preston RN) 0912 (Given - Provider: Domitila Wagner, HOLLEY) Knivjvboeyi-Zcgxyumzqvam-I ilanterol (Trelegy Ellipta) 200-62.5-25 MCG/ACT inhaler 1 Puff 1 Puff, Inhalation, RESPQPM, First dose on Wed12/01/24 at 2000, Until Discontinued 1999 (Not Given - Provider: Sharmila Pruitt, [employer] - Reason: Other-Notify Provider - Comment: med not delivered to respiratory med cart) gadobutrol (Gadavist) inj 10.1 mL (COMPLETED) 10.1 mL (rounded from 10.07 mL = 0.1 mL/kg 100.7 kg), Intravenous, ONCE, On Wed12/01/24 at 1415, For 1 dose, Radiology Medication Routing (Non-IR) 1427 (Given - Provider: Keo Maier, RT - Comment: [email or web address] 09-11) Hydrocortisone (Cortef) tab 10 mg 10 mg, Oral, [id number], First dose on Wed12/01/24 at 1500, Until Discontinued 1502 (Given - Provider: Keshia Preston RN) Hydrocortisone (Cortef) tab 20 mg 20 mg, Oral, Daily(AM), First dose on Wed12/01/24 at 1000, Until Discontinued 1110 (Given - Provider: Keshia Preston RN) 0911 (Given - Provider: Domitila Wagner RN) isolyte 500 mL bolus infusion (COMPLETED) Intravenous, Administer entire volume within 60 minutes or less. Plasma-LYTE 148, isolyte-S, and isolyte-S pH 7.4 are considered equivalent - including for MAR barcode scanning., ONCE, 1 dose, On Wed12/01/24 at 1030 1110 (New Bag - Provider: Keshia Preston RN)1209 (KVO - Provider: Keshia Preston RN)1217 (Stopped - Provider: Keshia Preston RN) Linezolid (Zyvox) tab 600 mg 600 mg, Oral, Q12H, First dose on Wed12/01/24 at 1000, Last dose on Wed12/07/24 at 2100, For 7 days 1034 (Given - Provider: Keshia Preston RN)2040 (Given - Provider: Mita Mejias RN) 0912 (Given - Provider: Domitila Wagner, HOLLEY) memantine (Namenda) tab 10 mg 10 mg, Oral, BID (.AM/PM), First dose on Wed12/01/24 at 1000, Until Discontinued 1108 (Given - Provider: Keshia Preston RN)2040 (Given - Provider: Mita Mejias RN) 0911 (Given - Provider: Domitila Wagner, HOLLEY) NSS 0.9% 500 mL bolus infusion (COMPLETED) IV Piggyback, Wide open, This infusion may be completed in less than 1 hour, since it will be a wide open rate, ONCE, 1 dose, On Wed12/01/24 at 0545 0528 (New Bag - Provider: Reina Renee RN)0619 (Stopped - Provider: Reina Renee RN) omeprazole (PriLOSEC) cap 20 mg 20 mg, Oral, Daily(AM), First dose on Wed12/01/24 at 1000, Until Discontinued, This med should NOT be Crushed or Chewed 1108 (Given - Provider: Keshia Preston RN) 0911 (Given - Provider: Domitila Wagner, HOLLEY) oxyBUTYnin (Ditropan) tab 5 mg 5 mg, Oral, BID (.AM/PM), First dose on Wed12/01/24 at 2100, Until Discontinued 2039 (Given - Provider: Mita Mejias RN) 09 (Given - Provider: Domitila Wagner, HOLLEY) oxygen GAS Inhalation, OXYGEN, First dose on Wed12/01/24 at 0800, Until Discontinued, Device/Managed by: Low Flow Device, Goal SPO2 (%): 94 or greater, Starting Device: Nasal Cannula, Initial Flow Rate (LPM): 2, Lowest Support: Nasal Cannula: Flow 0-6 LPM. Titrate up/down by 1 LPM., Titration Interval: Q2 minutes and as needed., Notify Provider: For sudden DECREASE in resting SPO2 to less than 85% and when escalating delivery device., Wean patient off Oxygen when the oxygen saturation is greater than or equal to 93% 0800 (Oxygen Off - Provider: Alla Plascencia RN - Comment: RA. Not indicated)1503 (Oxygen Off - Provider: Keshia Preston RN) 0000 (Oxygen Off - Provider: Mita Mejias RN)0800 (Oxygen Off - Provider: Domitila Wagner RN) sodium chloride 0.9 % flush peripheral mariel 3 mL 3 mL, IV Push, Q8H, First dose on Wed12/01/24 at 0600, Until Discontinued, Do not flush if lock, PICC, or central line not in place; IV infusing or unable to flush. 1032 (Given - Provider: Keshia Preston RN)1354 (Not Given - Provider: Keshia Preston RN - Reason: Other- Please add reason in Comments - Comment: pt in MRI; flushed in MRI)2040 (Given - Provider: Mita Mejias RN) 0548 (Given - Provider: Mita Mejias RN) sodium chloride 0.9 % flush/inj 10 mL 10 mL, IV Push, ONCE, On Wed12/01/24 at 1415, For 1 dose, Do not flush if lock, PICC, or central line not in place; IV infusing or unable to flush., Radiology Medication Routing (Non-IR) 1415 (OR/Procedure - Provider: Keshia Preston RN - Comment: MRI order) PRN Medication Order 11/30/2024 12/01/2024 12/02/2024 Acetaminophen (Tylenol) tab 975 mg 975 mg, Oral, Q6H PRN Pain, Mild, Fever >38C(100.5F), Starting on Wed12/01/24 at 0930, Until 12/02/24 at 1615, Maximum of 4 grams (4000 mg) per day. Bisacodyl (Dulcolax) supp 10 mg(Linked Group 1) 10 mg, Rectal, DAILY PRN Constipation, Starting on Wed12/04/24 at 0930, Until 12/02/24 at 1615, Administer if no bowel movement within past 72 hours and patient unable to take oral medications. Bisacodyl (Dulcolax) tab 5 mg(Linked Group 1) 5 mg, Oral, DAILY PRN Constipation, Starting on Wed12/04/24 at 0930, Until 12/02/24 at 1615, Administer in addition to polyethylene glycol and senna-docusate if no bowel movement in past 72 hours. melatonin tab 3 mg 3 mg, Oral, HS PRN Insomnia, Starting on Wed12/01/24 at 0930, Until 12/02/24 at 1615 2039 (Given - Provider: Chalo Mejias RN) ondansetron (Zofran) inj 4 mg 4 mg, IV Push, Q6H PRN Nausea, Starting on Wed12/01/24 at 0930, Until 12/02/24 at 1615 Polyethylene Glycol 3350 (Miralax) oral powder 17 g(Linked Group 1) 17 g (1 Packet), Oral, DAILY PRN Constipation, Starting on Wed12/01/24 at 0930, Until 12/02/24 at 1615, Administer if no bowel movement within past 24 hours. senna-docusate (Senokot-S) 1 Tablet(Linked Group 1) 1 Tablet, Oral, BID PRN Constipation, Starting on 12/03/24 at 0930, Until 12/02/24 at 1615, Administer in addition to polyethylene glycol if no bowel movement within past 48 hours. sodium chloride 0.9 % flush/inj 3 mL 3 mL, IV Push, PRN Other, Line Patency, Starting on Wed12/01/24 at 0929, Until 12/02/24 at 1615, Do not flush if lock, PICC, or central line not in place, IV infusing or unable to flush Linked Groups Order Group 1: Polyethylene Glycol 3350 (Miralax) oral powder 17 gJump to med 17 g (1 Packet), Oral, DAILY PRN Constipation, Starting on Wed12/01/24 at 0930, Until 12/02/24 at 1615, Administer if no bowel movement within past 24 hours. And senna-docusate (Senokot-S) 1 TabletJump to med 1 Tablet, Oral, BID PRN Constipation, Starting on Wed12/03/24 at 0930, Until 12/02/24 at 1615, Administer in addition to polyethylene glycol if no bowel movement within past 48 hours. And Bisacodyl (Dulcolax) tab 5 mgJump to med 5 mg, Oral, DAILY PRN Constipation, Starting on 12/04/24 at 0930, Until 12/02/24 at 1615, Administer in addition to polyethylene glycol and senna- docusate if no bowel movement in past 72 hours. And Bisacodyl (Dulcolax) supp 10 mgJump to med 10 mg, Rectal, DAILY PRN Constipation, Starting on 12/04/24 at 0930, Until 12/02/24 at 1615, Administer if no bowel movement within past 72 hours and patient unable to take oral medications. documented in this encounter Additional Health Concerns [...] Power of Attor philipp? No Care Teams Door And Arrival Attendant Relationship Specialty Start Date End Date Chuy Batista MD [address] [facility] [place] [address] PCP - General Family Medicine 09/14/24 documented as of this encounter
--- OUTSIDE RECORDS SUMMARY | 2024-12-19 09:42 | External Medical Summary ---
Author Name Unknown Address Unknown Organization K1F:LABORATORY [facility] - [address] [place] [address] Laboratory Report Ordering Provider Test Date Status BEN RICHARDS 12/01/2024 07:03:41 Final Observation Date Value Abnormality Reference (Units ) Status Troponin T 12/01/2024 07:03:41 42 Above high normal < =22 (ng/L) Final Performing Location LAB[facility]ATORY [facility] - [address] [place] [address]
--- OUTSIDE RECORDS SUMMARY | 2024-12-19 09:42 | External Medical Summary ---
Author Name Unknown Address Unknown Organization K1F:LABORATORY [facility] - [address] [place] [address] Laboratory Report Ordering Provider Test Date Status CASIE KU 12/01/2024 15:19:00 Final Observation Date Value Abnormality Reference (Units ) Status Hemoglobin 12/01/2024 15:19:00 12.1 Below low normal 14 .0-16.8 (g/dL) Final HCT 12/01/2024 15:19:00 36.3 Below low normal 40. 0-48.4 (%) Final Performing Location LABORATORY [facility] - [address] [place] [address]
--- OUTSIDE RECORDS SUMMARY | 2024-12-19 09:42 | External Medical Summary ---
Author Name Unknown Address Unknown Organization K1F:LABORATORY [facility] - [address] [place] [address] Laboratory Report Ordering Provider Test Date Status CASIE KU 12/02/2024 05:35:00 Final Observation Date Value Abnormality Reference (Units ) Status WBC, Total 12/02/2024 05:35:00 8.33 4.00-10.80 (K/uL) Final RBC 12/02/2024 05:35:00 3.66 4.50-5.25 (M/uL) Final Hemoglobin 12/02/2024 05:35:00 10.9 Below low normal 14.0-16.8 (g/dL) Final HCT 12/02/2024 05:35:00 33.2 Below low normal 40.0-48.4 (%) Final MCV 12/02/2024 05:35:00 90.7 82.0-99.5 (fL) Final MCH 12/02/2024 05:35:00 29.8 27.0-34.0 (pg) Final MCHC 12/02/2024 05:35:00 32.8 32.0-36.0 (g/dL) Final RDW 12/02/2024 05:35:00 16.1 11.5-15.5 (%) Final Platelets 12/02/2024 05:35:00 179 140-400 (K/uL) Final MPV 12/02/2024 05:35:00 9.1 6.6-11.1 (fL) Final Nucleated erythrocytes/100 leukocytes [Ratio] in Blood by Automated count 12/02/2024 05:35:00 0 <=0 (/100 WBCs) Final Performing Location LABORATORY [facility] - [address] [place] [address]
--- OUTSIDE RECORDS SUMMARY | 2024-12-19 09:42 | External Medical Summary ---
Author Name Unknown Address Unknown Organization K1F:LABORATORY [facility] - [address] [place] [address] Laboratory Report Ordering Provider Test Date Status AMITA TODD 12/02/2024 05:35:00 Final Observation Date Value Abnormality Reference (Units ) Status CK 12/02/2024 05:35:00 116 39-308 (U/ L) Final Performing Location LABORATORY [facility] - [address] [place] [address]
--- OUTSIDE RECORDS SUMMARY | 2024-12-19 09:42 | External Medical Summary | Summary of Care ---
Author Name Unknown Organization [facility] Address [address] [place] [address] Phone [phone] Care Team Providers Care Hat Cutter Name Role Phone Chuy Batista MD Primary Care Provider +1- [phone] Encounter Details Date Type Department Care Team (Late st Contact Info) Description 12/01/2024 Telephone [facility] Urology [address] [facility] [place] [address] Jimena Claros PA-C [address] [facility] [place] [address] Allergies Active Allergy [...] before bedtime. 11/17/19 25 Suspended Nystatin-Triamcin olone 124141-8.1 UNIT/GM-% External Ointment (Mycolog) Apply 1 Application [...] mRNA, LNP-s, No Pre serve, 2-Dose Series ([employer]) 05/30/2021,10/29/2020,10/08/2020 COVID-19, LNP-s, No Preserve , Prosper-sucrose, [...] or can follow up in December in [place] if patient/ wish. Please change May appointment to cystoscopy. Thanks! documented in this encounter Plan of Treatment Upcoming Encounters Date Type Department Care Team (Late st Contact Info) Description 12/06/2024 10:00 AM EDT [facility] [address] [place] [phone] [place], Nurse Urology Sukhjinder [address] [place] [address] 12/08/2024 1:00 PM EDT Cardiac Studies Cardiac [address] [place] [phone] 01/03/2025 3:00 PM EDT Procedure Only Urology Miri Orozco [address] [place] [address] Willi Smith Jr., MD [address] [place] [address] 01/05/2025 11:30 AM EDT Imaging Radiology [address] [place] [phone] 01/10/2025 9:30 AM EDT Office Visit Hematology/Oncology [facility] [address] [facility] [place] [phone] Xavi Gramajo MD [facility] [place] [address] 05/22/2025 10:45 AM EDT Office Visit Urology, [facility] [address] [place] [phone] Valdemar Prado MD [address] [place] [address] Health Maintenance Due Date Last Done Comments Albumin/Creatinine Ratio 1963 DTap/Tdap Vaccines (1 - Tdap) 1964 Adult Wellness Visit 02/01/2020 01/31/2019 COVID-19 Vaccine ( season) 2024 07/22/2022, 07/22/2022, 02/11/2022, Additional history exists CKD PHOS USE SMARTSET 62328 09/11/202408/17, 09/11/2023, 07/14/2021, Additional history exists Depression Screening 12/26/2024 12/27/2023 GFR 06/02/2025 12/01/2024, 09/17, 07/24/2024, Additional history exists CKD HGB USE SMARTSET 10274 12/01/202512/01, 12/01/2024, 12/01/2024, Additional history exists Pneumococcal [...] Power of Attor philipp? No Care Teams Hat Cutter Relationship Specialty Start Date End Date Chuy Batista MD [address] [place] [address] PCP - General Family Medicine 09/14/24 documented as of this encounter
--- OUTSIDE RECORDS SUMMARY | 2024-12-19 09:42 | External Medical Summary ---
Author Name Unknown Address Unknown Organization K01:[facility] [place] [address] [place] [address] Laboratory Report Ordering Provider Test Date Status CASIE KU 12/01/2024 11:26:54 Final Observation Date Value Abnormality Reference (Units ) Status Methicillin resistant Staphylococcus aureus (MRSA) DNA [Presence] in Nose by GRANT with probe detection 12/01/2024 11:26:54 Positive Abnormal Negative Final Methicillin resistant Staphy lococcus aureus detected by PCR (amplified probe). MRSA-This patient may require isolation. Please refer to Infection Control isolation policy. Performing Location LABORATORY [facility] [place] - [address] [place] [address]
--- OUTSIDE RECORDS SUMMARY | 2024-12-19 09:42 | External Medical Summary | Summary of Care ---
Author Name Unknown Organization [facility] Address [address] [place] [address] Phone [phone] Care Team Providers Care Technical Specialist Name Role Phone Chuy Batista MD Primary Care Provider +1- [phone] Reason for Visit * Reason Onset Date Comments Appointment 11/30/2024 Encounter Details Date Type Department Care Team (Late st Contact Info) Description 11/30/2024 Telephone Urology, [facility] [address] [place] [address] Services, Scheduling [address] [place] [address] Appointment Allergies Active Allergy Reactions Criticality Noted [...] DAY 180 Each 3 024 2024 Discontinued Trelesandi Ellipta 200-62.5-25 MCG/ACT Aerosol Powder Breath Activated (Fluticasone-Ume clidinium-Vilant emliy) Inhale 1 Puff by mouth every evening. 60 Blister Dosing Unit 11 023 Suspended EpiPen 2-Pedro 0.3 MG/0.3ML Injection Solution Auto-injectorInd ications:Anaphyl axis, sequela USE DIRECTED 1 Each 023 Suspended Multi Adult Gummies Oral Tablet Chewable [...] Take 119 g by mouth once. Suspended Medihoney Wound/Burn Dressing External GelIndications:P ressure injury of sacral region, stage 2 (HCC) Apply topically to affected area daily. Apply to pressure ulcer of buttocks. 88 mL 3 024 2024 Discontinued B Complex Oral Capsule Take 1 Capsule by mouth in the morning. 2024 Discontinued B-12 1000 MCG Oral Tablet Take by mouth daily. Suspended Fleet Enema 7-19 GM/118ML Rectal Enema Administer 1 Enema into the rectum as needed for Constipation. 2024 Discontinued Magnesium Chloride 64 MG Oral Tablet Take by mouth. Chikis pended Magnesium Hydroxide 400 MG/5ML Oral Suspension (Milk of Magnesia) Take 30 mL by mouth as needed for Constipation. Suspend ed Fludrocortisone Acetate 0.1 MG Oral Tablet (Florinef) Take 1 Tablet by mouth in the morning. 30 Tablet 11 024 Suspended Magnesium Cl-Calcium Carbonate 71.5-119 MG Oral Tablet Delayed Release Take 64 mg by mouth in the morning and 64 mg before bedtime. 024 Suspended Hydrocortisone 10 MG Oral Tablet (Cortef)Indicati ons:Adrenal insufficiency (HCC) Take 20 mg in AM and 10 mg in afternoon 90 Tablet 5 024 Suspended Lactobacillus Probiotic Oral Tablet Take by mouth. Suspe nded Mirabegron ER 25 MG Oral Tablet Extended Release 24 Hour (Myrbetriq) Take 1 Tablet by mouth in the morning. Suspended Senna 8.6 MG Oral Capsule Take by mouth. Moyer spended Tab-A-Kika Oral Tablet Take 1 Tablet by mouth in the morning. Suspended Vitamin B-12 1000 MCG/15ML Oral Liquid Take by mouth. Chikis pended Vitamin C ER 1000-100 MG Oral Tablet Extended Release Take by mouth. Suspe nded Nitroglycerin 0.4 MG Sublingual Tablet Sublingual (Nitrostat) Place 1 Tablet under the tongue every 5 minutes as needed for Pain, Chest. Suspended Escitalopram Oxalate 5 MG Oral Tablet (Lexapro) Take 1 Tablet by mouth in the morning. 30 Tablet 5 024 2024 Discontinued Memantine HCl 10 MG Oral Tablet (Namenda) Take 1 tab by mouth twice per day 60 Tablet 5 Suspended Lidocaine 4 % External Patch (Aspercreme)Denice cations:Chronic bilateral low back pain without sciatica Place 1 patch on skin over affected area daily (leave on for 12 hours). 30 Patch 1 Suspended Omeprazole 20 MG Oral Capsule Delayed Release (PriLOSEC)Indica tions:Gastroesop hageal reflux disease, unspecified whether esophagitis present TAKE 1 CAPSULE BY MOUTH EVERY MORNING 90 Capsule 3 024 Suspended Vitamin D 125 MCG (5000 UT) Oral Capsule Take 1 capsule daily 30 Capsule 11 024 Suspended Mirabegron ER 25 MG Oral Tablet Extended Release 24 Hour (Myrbetriq) Take 1 Tablet by mouth in the morning. 30 Tablet 11 024 Suspended Oseltamivir Phosphate 75 MG Oral Capsule (Tamiflu) Take 1 Capsule by mouth in the morning and 1 Capsule before bedtime. 025 2024 Discontinued Amoxicillin-Pot Clavulanate 875-125 MG Oral Tablet (Augmentin) Take 1 Tablet by mouth in the morning and 1 Tablet before bedtime. 025 2024 Discontinued Solifenacin Succinate 5 MG Oral Tablet (VESIcare) Take 1 Tablet by mouth in the morning. 30 Tablet 6 025 Suspended Fluticasone Propionate 50 MCG/ACT Nasal Suspension (Flonase) Administer 2 Sprays into nostril in the morning. 16 mL 3 025 Suspended Eliquis 2.5 MG Oral Tablet Take 1 Tablet by mouth in the morning and 1 Tablet before bedtime. 025 Suspended Nystatin-Triamci nolone 673115-9.1 UNIT/GM-% External Ointment (Mycolog) Apply 1 Application topically to affected area in the morning and 1 Application before bedtime. 025 Suspended Nitrofurantoin Monohyd Macro 100 MG Oral Capsule (Macrobid)Indica tions:Enterococc us UTI Take 1 Capsule by mouth in the morning and 1 Capsule before bedtime. Do all this for 7 days. With food until gone. 14 Capsule 025 2024 Suspended documented as of this encounter (statuses as of 12/01/2024) Active Problems Problem Noted Date Diagnosed Date Enterococcus UTI 12/01/2024 Fall at home 12/01/2024 Sepsis with acute renal failure 12/01/2024 Ambulatory dysfunction 12/01/2024 Pressure injury of sacral region, stage [...] mRNA, LNP-s, No Pre serve, 2-Dose Series ([employer]) 05/30/2021,10/29/2020,10/08/2020 COVID-19, LNP-s, No Preserve , [...] has nurse visit on December 06 at [facility]. fyi * Telephone Encounter - Erma Crespo LPN - 12/01/2024 8:56 AM EDT Patient currently admitted to [facility]; if they do no wish to travel to [place] they can be scheduled for next available with Dr. Prado in [facility]. * Telephone Encounter - Angie Corea OSA - 11/30/2024 4:26 PM EDT Pt requesting that pt has a cytoscopy done by Dr Prado at [facility]. He is scheduled with Dr Smith at [place] on 01/03/25. Please advise on this. documented in this encounter Plan of Treatment Upcoming Encounters Date Type Department Care Team (Late st Contact Info) Description 12/06/2024 10:00 AM EDT Nurse Only Urology, [facility] [address] [place] [phone] [facility] [address] [place] [address] 12/08/2024 1:00 PM EDT Cardiac Studies Cardiac Studies, Valarie Ybarra [address] [place] [phone] 01/03/2025 3:00 PM EDT Procedure Only Urology Miri Orozco [address] [place] [address] Luis Hart, Willi Garg MD [address] [place] [address] 01/05/2025 11:30 AM EDT Imaging Radiology [facility] 1st [facility] [address] [place] [phone] 01/10/2025 9:30 AM EDT Office Visit Hematology/Oncology [facility] [address] [facility] [place] [phone] Xavi Gramajo MD [address] [place] [address] 05/22/2025 10:45 AM EDT Office Visit Urology, [facility] [address] [place] [phone] Valdemar Prado MD [address] [place] [address] Health Maintenance Due Date Last Done Comments Albumin/Creatinine Ratio 1963 DTap/Tdap Vaccines (1 - Tdap) 1964 Adult Wellness Visit 02/01/2020 01/31/2019 COVID-19 Vaccine ( season) 2024 07/22/2022, 07/22/2022, 02/11/2022, Additional history exists CKD PHOS USE SMARTSET 73183 09/11/202408/17, 09/11/2023, 07/14/2021, Additional history exists Depression Screening 12/26/2024 12/27/2023 GFR 06/02/2025 12/01/2024, 09/17, 07/24/2024, Additional history exists CKD HGB USE SMARTSET 17190 12/01/202512/01, 12/01/2024, 10/13/2024, Additional history exists Pneumococcal [...] of Attor philipp? No Care Teams Technical Specialist Relationship Specialty Start Date End Date Chuy Batista MD [address] [place] [address] PCP - General Family Medicine 09/14/24 documented as of this encounter
--- OUTSIDE RECORDS SUMMARY | 2024-12-19 09:42 | External Medical Summary | Summary of Care ---
Author Name Unknown Organization [facility] Address [address] [place] [address] Phone [phone] Care Team Providers Care Breaker Boss Name Role Phone Chuy Batista MD Primary Care Provider +1- [phone] Reason for Visit * Reason Onset Date Comments Appointment 11/30/2024 Encounter Details Date Type Department Care Team (Late st Contact Info) Description 11/30/2024 Telephone Urology, [facility] [address] [place] [address] Services, Scheduling [address] [place] [address] Appointment Allergies Active Allergy Reactions Criticality Noted [...] before bedtime. 11/17/19 25 Active Nystatin-Triamcin olone 567008-1.1 UNIT/GM-% External Ointment (Mycolog) Apply 1 Application [...] mRNA, LNP-s, No Pre serve, 2-Dose Series ([employer]) 05/30/2021,10/29/2020,10/08/2020 COVID-19, LNP-s, No Preserve , Prosper-sucrose, [...] 8:56 AM EDT Patient currently admitted to [facility]; if they do no wish to travel to [place] they can be scheduled for next available with Dr. Praod in [facility]. * Telephone Encounter - Angie Corea OSA - 11/30/2024 4:26 PM EDT Pt requesting that pt has a cytoscopy done by Dr Prado at [facility]. He is scheduled with Dr Smith at [place] on 01/03/25. Please advise on this. documented in this encounter Plan of Treatment Upcoming Encounters Date Type Department Care Team (Late st Contact Info) Description 12/06/2024 10:00 AM EDT Nurse Only Urology, [facility] [address] [place] [phone] [facility], Nurse Urology [facility] [address] [place] [address] 12/08/2024 1:00 PM EDT Cardiac Studies Cardiac Studies, Valarie Ybarra [address] [place] [phone] 01/03/2025 3:00 PM EDT Procedure Only Urology Miri Orozco [address] [place] [address] Willi Smith Jr., MD [address] [place] [address] 01/05/2025 11:30 AM EDT Imaging Radiology [facility] 1st [facility] [place] [address] [place] [phone] 01/10/2025 9:30 AM EDT Office Visit Hematology/Oncology [place] [place] [address] [facility] [place], [place] [phone] Xavi Gramajo MD [address] [facility] [place] [address] 05/22/2025 10:45 AM EDT Office Visit Urology, [facility] [address] [place] [phone] Valdemar Prado MD [address] [place] [address] Health Maintenance Due Date Last Done Comments Albumin/Creatinine Ratio 1963 DTap/Tdap Vaccines (1 - Tdap) 1964 Adult Wellness Visit 02/01/2020 01/31/2019 COVID-19 Vaccine ( season) 2024 07/22/2022, 07/22/2022, 02/11/2022, Additional history exists CKD PHOS USE SMARTSET 56952 09/11/202408/17, 09/11/2023, 07/14/2021, Additional history exists Depression Screening 12/26/2024 12/27/2023 GFR 06/02/2025 12/01/2024, 09/17, 07/24/2024, Additional history exists CKD HGB USE SMARTSET 62030 12/01/202512/01, 12/01/2024, 10/13/2024, Additional history exists Pneumococcal [...] Power of Attor philipp? No Care Teams Breaker Boss Relationship Specialty Start Date End Date Chuy Batista MD [address] [place] [address] PCP - General Family Medicine 09/14/24 documented as of this encounter
--- OUTSIDE RECORDS SUMMARY | 2024-12-19 09:43 | External Medical Summary | Summary of Care ---
Author Name Unknown Organization [facility] Address [address] [facility] [address] Phone [phone] Care Team Providers Care Metal Fabricator Apprentice Name Role Phone Chuy Batista MD Primary Care Provider [phone]- [phone] Reason for Visit * Reason Onset Date Comments Appointment 11/29/2024 Encounter Details Date Type Department Care Team (Late st Contact Info) Description 11/29/2024 Telephone Radiology [address] [place] [address] Brianna Long, RT (R) Appointment Allergies Active Allergy Reactions Criticality Noted Date Comments Chocolate Diarrhea 05/14/2023 Chocolate Flavoring Agent (Non-Screening) High 10/09/2023 Other Reaction(s): DIARRHEA/ Cannot take, interacts w/ medications. Clindamycin Hcl 09/24/2005 rash Cranberry 10/20/2023 Iodinated Contrast Media 10/01/2015 Ioversol Other (Please comment) High 08/10/[address] IV DYE Pembrolizumab High 10/10/2023 Other Reaction(s): myocarditis documented as of this encounter (statuses as of 11/29/2024) Medications Syringe/Needle, Disp, 25G X 1-1/2" 3 [...] morning and 1 Tablet before bedtime. 11/17/19 Active Nystatin-Triamcin olone 865053-5.1 UNIT/GM-% External Ointment (Mycolog) Apply 1 Application topically to affected area in the morning and 1 Application before bedtime. 11/18/19 25 Active documented as of this encounter (statuses as of 11/29/2024) Active Problems Problem Noted Date Diagnosed Date Pressure injury of sacral region, stage 2 [...] as of this encounter (statuses as of 11/29/2024) Resolved Problems Problem Noted Date Diagnosed Date [...] as of this encounter (statuses as of 11/29/2024) Immunizations Name Administration Dates Next Due COVID-19 mRNA, LNP-s, No Pre serve, 2-Dose Series ([employer]) 05/30/2021,10/29/2020,10/08/2020 COVID-19, LNP-s, No Preserve , Prosper-sucrose, [...] 10:00 AM EDT [facility] [address] [place] [phone] [place] Nurse Urology Sukhjinder [address] [place] [address] 12/08/2024 1:00 PM EDT Cardiac Studies Cardiac Studies, Valarie Patel Tate [address] [place] [address] 01/03/2025 3:00 PM EDT Procedure Only Urology [address] [place] [address] Willi Smith Jr., MD [address] [place] [address] 01/05/2025 11:30 AM EDT Imaging Radiology [facility] 1st [facility] [address] [place] [phone] 01/10/2025 9:30 AM EDT Office Visit Hematology/Oncology [facility] [address] [facility] [place] [phone] Xavi Gramajo MD [address] [facility] [place] [address] 05/22/2025 10:45 AM EDT Office Visit Urology, [facility] [address] [place] [phone] Valdemar Prado MD [address] [place] [address] Health Maintenance Due Date Last Done Comments Albumin/Creatinine Ratio 1963 DTap/Tdap Vaccines (1 - Tdap) 1964 Adult Wellness Visit 02/01/2020 01/31/2019 COVID-19 Vaccine ( season) 2024 07/22/2022, 07/22/2022, 02/11/2022, Additional history exists CKD PHOS USE SMARTSET 87568 09/11/202408/17, 09/11/2023, 07/14/2021, Additional history exists Depression Screening 12/26/2024 12/27/2023 GFR 04/12/2025 10/13/2024, 12/0 04/2024, 04/12/2024, Additional history exists CKD HGB USE SMARTSET 56738 10/13/202510/13, 10/13/2024, 07/24/2024, Additional history exists Pneumococcal [...] Power of Attor philipp? No Care Teams Metal Fabricator Apprentice Relationship Specialty Start Date End Date Chuy Batista MD [facility] [place] [address] PCP - General Family Medicine 09/14/24 documented as of this encounter
--- OUTSIDE RECORDS SUMMARY | 2024-12-19 09:43 | External Medical Summary ---
Author Name Unknown Address Unknown Organization K1F:[facility]ATORY [address] [place] [address] Laboratory Report Ordering Provider Test Date Status BEN RICHARDS 12/01/2024 05:10:05 Final Observation Date Value Abnormality Reference (Units ) Status Bacteria identified in Specimen by Culture 12/01/2024 05:10:05 No growth Final Test: Culture, Blood
Sp ecimen Source: Blood, Venous
Specimen Type: Blood
Specimen Date: 12/01/2024 05
Result Date: 12/06/2024 0601
Result Status: Final result
Resulting Lab: LABORATORY [facility]
[address] [place] [address]
M[place] [address]

CULTURE

No growth

null Performing Location LABORATORY [facility] - [address] [place] [address] Ave. Mir[address] [place] [address]
--- OUTSIDE RECORDS SUMMARY | 2024-12-19 09:43 | External Medical Summary ---
Author Name Unknown Address Unknown Organization K1F:LABORATORY [facility] - [address] [place] [address] Laboratory Report Ordering Provider Test Date Status BEN RICHARDS 12/01/2024 05:10:05 Final Observation Date Value Abnormality Reference (Units ) Status Ethanol 12/01/2024 05:10:05 Negative Negative Final Performing Location LABORATORY [facility] - [address] [place] [address]
--- OUTSIDE RECORDS SUMMARY | 2024-12-19 09:43 | External Medical Summary ---
Author Name Unknown Address Unknown Organization K1F:LABORATORY [facility] [address] [facility] [place] [address] Laboratory Report Ordering Provider Test Date Status BEN RICHARDS 12/01/2024 05:11:51 Final Observation Date Value Abnormality Reference (Units ) Status Adenovirus DNA [Presence] in Nasopharynx by GRANT with non-probe detection 12/01/2024 05:11:51 Negative Negative Final Human coronavirus 229E RNA [Presence] in Nasopharynx by GRANT with non-probe detection 12/01/2024 05:11:51 Negative Negative Final Human coronavirus HKU1 RNA [Presence] in Nasopharynx by GRANT with non-probe detection 12/01/2024 05:11:51 Negative Negative Final Human coronavirus NL63 RNA [Presence] in Nasopharynx by GRANT with non-probe detection 12/01/2024 05:11:51 Negative Negative Final Human coronavirus OC43 RNA [Presence] in Nasopharynx by GRANT with non-probe detection 12/01/2024 05:11:51 Negative Negative Final SARS-CoV-2 (COVID-19) RNA [Presence] in Nasopharynx by GRANT with non-probe detection 12/01/2024 05:11:51 Negative Negative Final Human metapneumovirus RNA [Presence] in Nasopharynx by GRANT with non-probe detection 12/01/2024 05:11:51 Negative Negative Final Rhinovirus+Enterovirus RNA [Presence] in Nasopharynx by GRANT with non-probe detection 12/01/2024 05:11:51 Negative Negative Final Influenza virus A RNA [Presence] in Nasopharynx by GRANT with non-probe detection 12/01/2024 05:11:51 Negative Negative Final Influenza virus B RNA [Presence] in Nasopharynx by GRANT with non-probe detection 12/01/2024 05:11:51 Negative Negative Final Parainfluenza virus 1 RNA [Presence] in Nasopharynx by GRANT with non-probe detection 12/01/2024 05:11:51 Negative Negative Final Parainfluenza virus 2 RNA [Presence] in Nasopharynx by GRANT with non-probe detection 12/01/2024 05:11:51 Negative Negative Final Parainfluenza virus 3 RNA [Presence] in Nasopharynx by GRANT with non-probe detection 12/01/2024 05:11:51 Negative Negative Final Parainfluenza virus 4 RNA [Presence] in Nasopharynx by GRANT with non-probe detection 12/01/2024 05:11:51 Negative Negative Final Respiratory syncytial virus RNA [Presence] in Nasopharynx by GRANT with non-probe detection 12/01/2024 05:11:51 Negative Negative Final Bordetella pertussis.pertussis toxin promoter region [Presence] in Nasopharynx by GRANT with non-probe detection 12/01/2024 05:11:51 Negative Negative Final Chlamydophila pneumoniae DNA [Presence] in Nasopharynx by GRANT with non-probe detection 12/01/2024 05:11:51 Negative Negative Final Mycoplasma pneumoniae DNA [Presence] in Nasopharynx by GRANT with non-probe detection 12/01/2024 05:11:51 Negative Negative Final Bordetella parapertussis [id number] DNA [Presence] in Nasopharynx by GRANT with non-probe detection 12/01/2024 05:11:51 Negative Negative Final The primers that detect Rhin ovirus may cross react with some Enterorviruses. The validation of bronchial specimens, tracheal aspirates, and throats for this assay was developed and performance characteristics determined by [employer] �The validation of alternate specimen types has not been cleared or approved by the U.S. Food and Drug Administration (FDA). �It has been determined that such clearance or approval is not necessary. [address] Daniel [facility] [address]
--- OUTSIDE RECORDS SUMMARY | 2024-12-19 09:43 | External Medical Summary ---
Author Name Unknown Address Unknown Organization K1F:LABORATORY [facility] - [address] [place] [address] Laboratory Report Ordering Provider Test Date Status BEN RICHARDS 12/01/2024 05:40:34 Final Observation Date Value Abnormality Reference (Units ) Status ABO 12/01/2024 05:40:34 A Final RH 12/01/2024 05:40:34 Positive Final Performing Location LABORATORY [facility] - [address] [place] [address]
--- OUTSIDE RECORDS SUMMARY | 2024-12-19 09:43 | External Medical Summary ---
Author Name Unknown Address Unknown Organization K1F:LABORATORY [facility] - [address] [place] [address] Laboratory Report Ordering Provider Test Date Status BEN RICHARDS 12/01/2024 05:10:05 Final Observation Date Value Abnormality Reference (Units ) Status Lactic Acid, Whole Blood 12/01/2024 05:10:05 3.1 Above high normal 0.4-2.0 (mmol/L) Final Performing Location LABORATORY [facility] - [address] [place] [address]
--- OUTSIDE RECORDS SUMMARY | 2024-12-19 09:43 | External Medical Summary ---
Author Name Unknown Address Unknown Organization K1F:LABORATORY [facility] - [address] [place] [address] Laboratory Report Ordering Provider Test Date Status BEN RICHARDS 12/01/2024 06:19:37 Final Observation Date Value Abnormality Reference (Units ) Status Color of Urine by Auto 12/01/2024 06:19:37 Red Abnormal Light Yellow, Yellow, Dark Yellow Final Clarity, Urine 12/01/2024 06:19:37 Cloudy Abnormal Clear Final Glucose [Mass/volume] in Urine by Automated test strip 12/01/2024 06:19:37 Negative Negative (mg/dL) Final Bilirubin.total [Presence] in Urine by Automated test strip 12/01/2024 06:19:37 Small Abnormal Negative Final Ketones [Mass/volume] in Urine by Automated test strip 12/01/2024 06:19:37 Trace Abnormal Negative (mg/dL) Final Specific gravity, Urine 12/01/2024 06:19:37 1.012 1.003-1.030 Final Hemoglobin [Presence] in Urine by Automated test strip 12/01/2024 06:19:37 Large Abnormal Negative Final pH, Urine 12/01/2024 06:19:37 6.0 5.0-7.5 (Units) Final Protein [Mass/volume] in Urine by Automated test strip 12/01/2024 06:19:37 100 Abnormal Negative (mg/dL) Final Urobilinogen [Mass/volume] in Urine by Automated test strip 12/01/2024 06:19:37 1.0 0.2, 1.0 (mg/dL) Final Nitrite [Presence] in Urine by Automated test strip 12/01/2024 06:19:37 Positive Abnormal Negative Final Leukocyte esterase [Presence] in Urine by Automated test strip 12/01/2024 06:19:37 Moderate Abnormal Negative Final Performing Location LABORATORY [facility] - [address] [facility] [address] [place] [place] [address]
--- OUTSIDE RECORDS SUMMARY | 2024-12-19 09:43 | External Medical Summary ---
Author Name Unknown Address Unknown Organization : Laboratory Report Ordering Provider Test Date Status BEN RICHARDS 12/01/2024 05:01:51 Final Observation Date Value Abnormality Reference (Units ) Status Glucose Point of Care 12/01/2024 05:01:51 101 70-120 (mg/dL) Final Performing Location
--- OUTSIDE RECORDS SUMMARY | 2024-12-19 09:43 | External Medical Summary ---
Author Name Unknown Address Unknown Organization K[facility] [address] [facility] [place] [address] Laboratory Report Ordering Provider Test Date Status BEN RICHARDS 12/01/2024 05:10:05 Final Observation Date Value Abnormality Reference (Units ) Status BUN 12/01/2024 05:10:05 16 6-20 (mg/dL) Final Creatinine 12/01/2024 05:10:05 1.7 Above high normal 0.6-1.2 (mg/dL) Final Glomerular filtration rate/1.73 sq M.predicted [Volume Rate/Area] in Serum, Plasma or Blood by Creatinine-based formula (CKD-EPI) 12/01/2024 05:10:05 42 Below low normal >=60 (mL/min) Final eGFR is calculated based on the CKD-EPI 2020 equation. Sodium 12/01/2024 05:10:05 141 135-146 (m mol/L) Final Potassium 12/01/2024 05:10:05 4.0 3.5-5.1 (m mol/L) Final Results may be falsely eleva ruben due to hemolysis. Cl 12/01/2024 05:10:05 103 98-107 (mm ol/L) Final CO2 12/01/2024 05:10:05 22 22-32 (mmo l/L) Final Anion gap 12/01/2024 05:10:05 16 Above high normal 7- 15 (mmol/L) Final Glucose 12/01/2024 05:10:05 99 70-120 (mg /dL) Final Albumin 12/01/2024 05:10:05 3.7 Below low normal 3.8 -5.0 (g/dL) Final AST (Aspartate aminotransferase) 12/01/2024 05:10:05 38 10-50 (U/L) Fin al Results may be falsely eleva ruben due to hemolysis. Alk Phos 12/01/2024 05:10:05 111 35-130 (U/ L) Final Bilirubin, Total 12/01/2024 05:10:05 0.8 <=1 .2 (mg/dL) Final Calcium 12/01/2024 05:10:05 9.0 8.4-10.2 ( mg/dL) Final Protein 12/01/2024 05:10:05 6.5 6.0-8.3 (g /dL) Final ALT (Alanine aminotransferase) 12/01/2024 05:10:05 10 10-50 (U/L) Final Results may be falsely eleva ruben due to hemolysis. Performing Location LABORATORY [facility] - [facility] [address] [place] [address]
--- OUTSIDE RECORDS SUMMARY | 2024-12-19 09:43 | External Medical Summary | Summary of Care ---
Author Name Unknown Organization [facility] Address [address] [place] [address] Phone [phone] Care Team Providers Care Seed District Sales Manager Name Role Phone Chuy Batista MD Primary Care Provider [phone]- [phone] Reason for Visit * Reason Onset Date Comments Advice 11/29/2024 Encounter Details Date Type Department Care Team (Late st Contact Info) Description 11/29/2024 [facility] [address] [email or web address] [phone] Chuy Batista MD [address] [facility] [place] [address] Advice Allergies Active Allergy Reactions Criticality Noted Date Comments Chocolate Diarrhea 05/14/2023 Chocolate Flavoring Agent (Non-Screening) High 10/09/2023 Other Reaction(s): DIARRHEA/ Cannot take, interacts w/ medications. Clindamycin Hcl 09/24/2005 rash Cranberry 10/20/2023 Iodinated Contrast Media 10/01/2015 Ioversol Other (Please comment) High 08/10/[address] IV DYE Pembrolizumab High 10/10/2023 Other Reaction(s): myocarditis documented as of this encounter (statuses as of 11/30/2024) Medications Syringe/Needle, Disp, 25G X 1-1/2" 3 [...] before bedtime. 11/17/19 25 Active Nystatin-Triamcin olone 464372-0.1 UNIT/GM-% External Ointment (Mycolog) Apply 1 Application [...] as of this encounter (statuses as of 11/30/2024) Active Problems Problem Noted Date Diagnosed Date [...] as of this encounter (statuses as of 11/30/2024) Resolved Problems Problem Noted Date Diagnosed Date [...] as of this encounter (statuses as of 11/30/2024) Immunizations Name Administration Dates Next Due COVID-19 mRNA, LNP-s, No Pre serve, 2-Dose Series ([employer]) 05/30/2021,10/29/2020,10/08/2020 COVID-19, LNP-s, No Preserve , Prosper-sucrose, [...] Telephone Encounter - Deondre Hill MD - 11/29/2024 3:39 PM EDT Viewed sensitivities. Only options are linezolid or macrobid. Treat with macrobid 100 mg twice daily for 7 days given limited renal excretion of linezolid. Deondre Hill MD * Telephone Encounter - Joy Otero OSA - 11/29/2024 2:52 PM EDT Good Afternoon, Patients calling back in upset that she has not received a phone call. Advised it could take [id number] hours. Please give her a call back at [phone]. Thank you ANDRZEJ Munson * Telephone Encounter - Mita Rose LPN - 11/29/2024 12:57 PM EDT Pt's called extremely upset that nothing has been called in for her 's UTI. Results areon chart for review. Please call Rx to [facility] in [facility]! is mad. SARAH Fan DNL * Telephone Encounter - Camron Cary PHARM Tech - 11/29/2024 12:48 PM EDT Pt's calling upset that there has not been any medication sent over for Pt for a possible UTI.Consulted and warm transferred to dedicated nurse line. Thank you, Camron Cary Grain Shipper [employer] [facility] 11/29/2024,12:51 PM * Telephone Encounter - Micki Alarcon LPN - 11/29/2024 8:13 AM EDT HH Concerns Verna RN, Calling from: [facility] Report/Concerns of: asking for urinalysis report Symptoms: patient with indwelling catheter Narrative: Verna calling from [facility]. Patients urinalysis and culture is back. Asking if the doctor would like to order him something. She has not seen the patient and is due to see him this morning. Call back Verna with any advice or orders at [phone] * Telephone Encounter - Shanika Montgomery OSA - 11/29/2024 8:10 AM EDT Reason for patient's call: urine results Caller was transferred to micki at the nurse line. documented in this encounter Plan of Treatment Upcoming Encounters Date Type Department Care Team (Late st Contact Info) Description 12/06/2024 10:00 AM EDT [facility] [address] [place] [phone] Nurse [place] Urologbrant Slaughter [address] [place] [address] 12/08/2024 1:00 PM EDT Cardiac Studies Cardiac StudiesValarie [address] [place] [phone] 01/03/2025 3:00 PM EDT Procedure Only Urology Miri Orozco [address] [place] [address] Willi Smith Jr., MD [address] [place] [address] 01/05/2025 11:30 AM EDT Imaging Radiology [facility] 1st [facility] [address] [place] [phone] 01/10/2025 9:30 AM EDT Office Visit Hematology/Oncology [facility] [address] [place] [phone] Xavi Gramajo MD [address] [facility] [place] [address] 05/22/2025 10:45 AM EDT Office Visit Urology, [facility] [address] [place] [phone] Valdemar Prado MD [address] [place] [address] Health Maintenance Due Date Last Done Comments Albumin/Creatinine Ratio 1963 DTap/Tdap Vaccines (1 - Tdap) 1964 Adult Wellness Visit 02/01/2020 01/31/2019 COVID-19 Vaccine ( season) 2024 07/22/2022, 07/22/2022, 02/11/2022, Additional history exists CKD PHOS USE SMARTSET 61267 09/11/202408/17, 09/11/2023, 07/14/2021, Additional history exists Depression Screening 12/26/2024 12/27/2023 GFR 04/12/2025 10/13/2024, 12/0 04/2024, 04/12/2024, Additional history exists CKD HGB USE SMARTSET 21188 10/13/202510/13, 10/13/2024, 07/24/2024, Additional history exists Pneumococcal [...] as of this encounter Visit Diagnoses Diagnosis Enterococcus UTI- Primary Urinary tract infection, site not [...] Power of Attor philipp? No Care Teams Seed District Sales Manager Relationship Specialty Start Date End Date Chuy Batista MD [address] [place] [address] PCP - General Family Medicine 09/14/24 documented as of this encounter
--- OUTSIDE RECORDS SUMMARY | 2024-12-19 09:43 | External Medical Summary ---
Author Name Unknown Address Unknown Organization K1F:LABORATORY [facility] - [address] [place] [address] Laboratory Report Ordering Provider Test Date Status BEN RICHARDS 12/01/2024 05:10:05 Final Observation Date Value Abnormality Reference (Units ) Status ABO 12/01/2024 05:10:05 A Final RH 12/01/2024 05:10:05 Positive Final RED BLOOD CELL ANTIBODY SCREEN 12/01/2024 05:10:05 Negative Final SPECIMEN EXPIRATION DATE 12/01/2024 05:10:05 12/04/2024 23:59 Final Performing Location LABORATORY [facility] - [address] [place] [address]
--- OUTSIDE RECORDS SUMMARY | 2024-12-19 09:43 | External Medical Summary ---
Author Name Unknown Address Unknown Organization K1F:LABORATORY [facility] - [address] [place] [address] Laboratory Report Ordering Provider Test Date Status BEN RICHARDS 12/01/2024 05:40:34 Final Warfarin Therapy
INR: 2 .0-3.0 conventional anticoagulation
INR: 2.5- 3.5 high intensity anticoagulation Observation Date Value Abnormality Reference (Units ) Status PT 12/01/2024 05:40:34 15.7 Above high normal 11 .6-15.2 (seconds) Final INR 12/01/2024 05:40:34 1.2 0.8-1.2 Final Performing Location LABORATORY [facility] - [address] [place] [address]
--- OUTSIDE RECORDS SUMMARY | 2024-12-19 09:43 | External Medical Summary ---
Author Name Unknown Address Unknown Organization K1F:LABORATORY [facility] - [address] [place] [address] Laboratory Report Ordering Provider Test Date Status SUSIEBEN 12/01/2024 05:10:05 Final Less than 0.5 ng/mL: Low ris k for progression to sepsis. Review patients condition for localized infections.

0.5 to 2.0 ng/mL: Intermediate risk for progresion to sepsis. Review underlying conditions. Recommend repeat PCT after 6 hours has elapsed.

Greater than 2.0 ng/mL: high risk for progression to sepsis unless other causes are known. Observation Date Value Abnormality Reference (Units ) Status Procalcitonin [Mass/volume] in Serum or Plasma by Immunoassay 12/01/2024 05:10:05 0.13 Above high normal <0.10 (ng/mL) Final Performing Location LABORATORY [facility] - [address] [place] [address]
--- OUTSIDE RECORDS SUMMARY | 2024-12-19 09:43 | External Medical Summary ---
Author Name Unknown Address Unknown Organization K1F:LABORATORY [address] [place] [address] Laboratory Report Ordering Provider Test Date Status BEN RICHARDS 12/01/2024 05:10:05 Final Observation Date Value Abnormality Reference (Units ) Status Bacteria identified in Specimen by Culture 12/01/2024 05:10:05 No growth Final Test: Culture, Blood (Site 2)
Specimen Source: Blood, Venous
Specimen Type: Blood
Specimen Date: 12/01/2024 05
Result Date: 12/06/2024 0601
Result Status: Final result
Resulting Lab: LABORATORY [facility]
[address] [place] [address]
[place] [address]

CULTURE

No growth

null Performing Location LABORATORY [facility] - [address] [place] [address] [address] [place] [address]
--- OUTSIDE RECORDS SUMMARY | 2024-12-19 09:43 | External Medical Summary | Summary of Care ---
Author Name Unknown Organization [facility] Address [address] [place] [address] Phone [phone] Care Team Providers Care Hot Saw Operator Name Role Phone Chuy Batista MD Primary Care Provider [phone]- [phone] Reason for Visit * Reason Onset Date Comments Appointment 11/30/2024 Encounter Details Date Type Department Care Team (Late st Contact Info) Description 11/30/2024 Telephone Urology, [facility] [address] [place] [address] Services, Scheduling [address] [place] [address] Appointment Allergies Active Allergy Reactions Criticality Noted [...] before bedtime. 11/17/19 25 Active Nystatin-Triamcin olone 196646-4.1 UNIT/GM-% External Ointment (Mycolog) Apply 1 Application [...] mRNA, LNP-s, No Pre serve, 2-Dose Series ([employer]) 05/30/2021,10/29/2020,10/08/2020 COVID-19, LNP-s, No Preserve , Prosper-sucrose, [...] encounter Miscellaneous Notes * Telephone Encounter - Angie Corea OSA - 11/30/2024 4:26 PM EDT Pt requesting that pt has a cytoscopy done by Dr Praod at [facility]. He is scheduled with Dr Smith at [place] on 01/03/25. Please advise on this. documented in this encounter Plan of Treatment Upcoming Encounters Date Type Department Care Team (Late st Contact Info) Description 12/06/2024 10:00 AM EDT Nurse Only Urology, [facility] [address] [place] [phone] [facility], Nurse Urology [facility] [address] [place] [address] 12/08/2024 1:00 PM EDT Cardiac Studies Cardiac Studies, Valarie Ybarra [address] [place] [phone] 01/03/2025 3:00 PM EDT Procedure Only Urology Miri Orozco [address] [place] [address] Willi Smith Jr., MD [address] [place] [address] 01/05/2025 11:30 AM EDT Imaging Radiology [facility] 1st [facility] [place] [address] [address] [place] [phone] 01/10/2025 9:30 AM EDT Office Visit Hematology/Oncology [facility] [address] [place] [phone] Xavi Gramajo MD [address] [place] [address] 05/22/2025 10:45 AM EDT Office Visit Urology, [facility] [address] [place] [address] [place] [phone] Valdemar Prado MD [address] [place] [address] Health Maintenance Due Date Last Done Comments Albumin/Creatinine Ratio 1963 DTap/Tdap Vaccines (1 - Tdap) 1964 Adult Wellness Visit 02/01/2020 01/31/2019 COVID-19 Vaccine ( season) 2024 07/22/2022, 07/22/2022, 02/11/2022, Additional history exists CKD PHOS USE SMARTSET 95500 09/11/202408/17, 09/11/2023, 07/14/2021, Additional history exists Depression Screening 12/26/2024 12/27/2023 GFR 04/12/2025 10/13/2024, 12/04/2024, 04/12/2024, Additional history exists CKD HGB USE SMARTSET 09741 10/13/202510/13, 10/13/2024, 07/24/2024, Additional history exists Pneumococcal [...] Power of Attor philipp? No Care Teams Hot Saw Operator Relationship Specialty Start Date End Date Chuy Batista MD [address] [place] [address] PCP - General Family Medicine 09/14/24 documented as of this encounter
--- OUTSIDE RECORDS SUMMARY | 2024-12-19 09:43 | External Medical Summary ---
Author Name Unknown Address Unknown Organization K1F:LABORATORY [facility] - [address] [facility] [place] [address] Laboratory Report Ordering Provider Test Date Status BEN RICHARDS 12/01/2024 05:10:05 Final Observation Date Value Abnormality Reference (Units ) Status SYNC LEUKOCYTES IN BLOOD BY AUTOMATED COUNT 12/01/2024 05:10:05 11.99 Above high normal 4.00-10.80 (K/uL) Final Segs 12/01/2024 05:10:05 79.2 Above high normal 40.0-75.0 (%) Final Lymphs % 12/01/2024 05:10:05 12.5 Below low normal 18.0-42.0 (%) Final Monos 12/01/2024 05:10:05 7.0 1.0-11.0 (%) Final Eosinophils 12/01/2024 05:10:05 0.5 0.0-6.0 (%) Final Basos 12/01/2024 05:10:05 0.3 0.0-2.0 (%) Final Immature Granulocyte, Percent 12/01/2024 05:10:05 0.5 0.0-2.0 (%) Final Absolute Segs 12/01/2024 05:10:05 9.49 Above high normal 1.80-7.70 (K/uL) Final Lymphs, absolute 12/01/2024 05:10:05 1.50 1.00-4.80 (K/ul) Final Monos, Abs 12/01/2024 05:10:05 0.84 0.00-1.10 (K/uL) Final Eos, Abs 12/01/2024 05:10:05 0.06 0.00-0.70 (K/uL) Final Basos, Abs 12/01/2024 05:10:05 0.04 0.00-0.20 (K/uL) Final Immature Granulocytes, Number 12/01/2024 05:10:05 0.06 0.00-0.20 (K/uL) Final Performing Location LABORATORY [facility] - [facility] [address] [place] [address]
--- OUTSIDE RECORDS SUMMARY | 2024-12-19 09:43 | External Medical Summary ---
Author Name Unknown Address Unknown Organization K1F:LABORATORY [facility] - [address] [place] [address] Laboratory Report Ordering Provider Test Date Status BEN RICHARDS 12/01/2024 07:03:41 Final Observation Date Value Abnormality Reference (Units ) Status Lactic Acid 12/01/2024 07:03:41 2.0 0.4-2.0 (mmol/L) Final Performing Location LABORATORY [facility] - [address] [place] [address]
--- OUTSIDE RECORDS SUMMARY | 2024-12-19 09:43 | External Medical Summary ---
Author Name Unknown Address Unknown Organization K1F:LABORATORY [facility] - [address] [place] [address] Laboratory Report Ordering Provider Test Date Status BEN RICHARDS 12/01/2024 05:10:05 Final Exclude Heart Failure: <300 pg/mL
Diagnose Heart Failure:
Age <50 yr: >450 pg/mL
50-75 yr: >900 pg/mL
>75 yr: >1800 pg/mL
GFR is 30-59 mL/min: >1200 pg/mL or Age- adjusted values
GFR <30 mL/min: do not use, not reliable

Prognostic threshold: 1000 pg/mL Observation Date Value Abnormality Reference (Units ) Status BNP, Pro-hormone 12/01/2024 05:10:05 477 Above high no rmal <300 (pg/mL) Final Performing Location LABORATORY [facility] - [address] [place] [address]
--- OUTSIDE RECORDS SUMMARY | 2024-12-19 09:43 | External Medical Summary ---
Author Name Unknown Address Unknown Organization K1F:LABORATORY [facility] - [address] [place] [address] [place] [address] Laboratory Report Ordering Provider Test Date Status BEN RICHARDS 12/01/2024 06:19:37 Final Cutoff Concentrations:
Drug Level
Amphetamines 500 ng/mL
Benzodiazepines 100 ng/mL
Cannabinoids 50 ng/mL
Cocaine Metabolite 150 ng/mL
Fentanyl 1 ng/mL
Hydrocodone / Hydromorphone � 300 ng/mL
Methadone Metabolite 100 ng/mL
Morphine / Codeine 300 ng/mL
Oxycodone / Oxymorphone 100 ng/mL

Screening results are presumptive and can only be used for medical purposes. Positive screening results are reflexed to confirmatory testing. Observation Date Value Abnormality Reference (Units ) Status Amphetamines, Urine screen 12/01/2024 06:19:37 Negative Negative Final Benzodiazepines, Urine screen 12/01/2024 06:19:37 Negative Negative Final Cannabinoids, Urine screen 12/01/2024 06:19:37 Negative Negative Final Cocaine Metabolite, Urine screen 12/01/2024 06:19:37 Negative Negative Final fentaNYL [Presence] in Urine by Screen method 12/01/2024 06:19:37 Negative Negative Final HYDROcodone [Presence] in Urine by Screen method 12/01/2024 06:19:37 Negative Negative Final 3-Dnjvwbuoji-5,5-Dimeth yl-3,3-Diphenylpyrrolid ine (EDDP) [Presence] in Urine 12/01/2024 06:19:37 Negative Negative Final Opiates, Urine screen 12/01/2024 06:19:37 Negative Negative Final oxyCODONE [Presence] in Urine by Screen method 12/01/2024 06:19:37 Negative Negative Final Performing Location LABORATORY [facility] - [address] [place] [address]
--- OUTSIDE RECORDS SUMMARY | 2024-12-19 09:43 | External Medical Summary ---
Author Name Unknown Address Unknown Organization K1F:LABORATORY [facility] - [address] [place] [address] Laboratory Report Ordering Provider Test Date Status BEN RICHARDS 12/01/2024 05:10:05 Final Observation Date Value Abnormality Reference (Units ) Status WBC, Total 12/01/2024 05:10:05 11.99 Above high normal 4.00-10.80 (K/uL) Final RBC 12/01/2024 05:10:05 4.51 4.50-5.25 (M/uL) Final Hemoglobin 12/01/2024 05:10:05 13.3 Below low normal 14.0-16.8 (g/dL) Final HCT 12/01/2024 05:10:05 40.3 40.0-48.4 (%) Final MCV 12/01/2024 05:10:05 89.4 82.0-99.5 (fL) Final MCH 12/01/2024 05:10:05 29.5 27.0-34.0 (pg) Final MCHC 12/01/2024 05:10:05 33.0 32.0-36.0 (g/dL) Final RDW 12/01/2024 05:10:05 15.9 11.5-15.5 (%) Final Platelets 12/01/2024 05:10:05 233 140-400 (K/uL) Final MPV 12/01/2024 05:10:05 9.4 6.6-11.1 (fL) Final Nucleated erythrocytes/100 leukocytes [Ratio] in Blood by Automated count 12/01/2024 05:10:05 0 <=0 (/100 WBCs) Final Performing Location LABORATORY [facility] - [address] [place] [address]
--- OUTSIDE RECORDS SUMMARY | 2024-12-19 09:43 | External Medical Summary ---
Author Name Unknown Address Unknown Organization K1F:LABORATORY [facility] - [address] [place] [address] Laboratory Report Ordering Provider Test Date Status BEN RICHARDS 12/01/2024 05:10:05 Final Observation Date Value Abnormality Reference (Units ) Status Troponin T 12/01/2024 05:10:05 44 Above high normal < =22 (ng/L) Final Result may be falsely decrea sed due to hemolysis. Performing Location LABORATORY [facility] - [address] [place] [address]
--- OUTSIDE RECORDS SUMMARY | 2024-12-19 09:43 | External Medical Summary ---
Author Name Unknown Address Unknown Organization K1F:LABORATORY [facility] - [address] [place] [address] Laboratory Report Ordering Provider Test Date Status BEN RICHARDS 12/01/2024 06:19:37 Final Observation Date Value Abnormality Reference (Units ) Status RBC, Urine 12/01/2024 06:19:37 50+ Abnormal 0-2 (/HPF) Final WBC, Urine 12/01/2024 06:19:37 20-29 Abnormal 0-2 (/HPF) Final Bacteria [#/area] in Urine sediment by Microscopy high power field 12/01/2024 06:19:37 0-25 0-25 (/HPF) Final Performing Location LABORATORY [facility] - [address] [place] [address]
--- OUTSIDE RECORDS SUMMARY | 2024-12-19 09:44 | External Medical Summary | Summary of Care ---
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 Clindamycin Hcl 09/24/2005 rash Cranberry 10/20/2023 Iodinated Contrast Media 10/01/2015 Ioversol Other (Please comment) High 08/10/[address] IV DYE Pembrolizumab High 10/10/2023 Other Reaction(s): myocarditis documented as of this encounter (statuses as of 11/27/2024) Medications Syringe/Needle, Disp, 25G X 1-1/2" 3 ML MISC To use with injection of hydrocortisone if needed 2 Each 5 08/31/19 16 Active Additional Information Patient not taking.Reported on 07/24/2024 Breo Ellipta 200-25 MCG/ACT Inhalation Aerosol Powder Breath Activated (fluticasone furoate-vilantero l) INHALE 1 PUFF BY MOUTH EVERY DAY 180 Each 3 03/14/20 24 Active Trelesandi Ellipta 200-62.5-25 MCG/ACT Aerosol Powder [...] g by mouth once. Active [facility] Wound/Burn Dressing External GelIndications:Pr essure injury of [...] before bedtime. 11/17/19 25 Active Nystatin-Triamcin olone 245051-8.1 UNIT/GM-% External Ointment (Mycolog) Apply 1 Application topically to affected area in the morning and 1 Application before bedtime. 11/18/19 25 Active documented as of this encounter (statuses as of 11/27/2024) Active Problems Problem Noted Date Diagnosed Date [...] as of this encounter (statuses as of 11/27/2024) Resolved Problems Problem Noted Date Diagnosed Date [...] as of this encounter (statuses as of 11/27/2024) Immunizations Name Administration Dates Next Due COVID-19 mRNA, LNP-s, No Pre serve, 2-Dose Series ([employer]) 05/30/2021,10/29/2020,10/08/2020 COVID-19, LNP-s, No Preserve , Prosper-sucrose, [...] Team (Late st Contact Info) Description 12/02/2024 2:00 PM EDT Imaging Radiology [facility] 1st [facility] [address] [place] [address] 12/06/2024 10:00 AM EDT Nurse Only Urology, [facility] [address] [place] [address] Tim, Nurse Urology [facility] [address] [place] [address] 12/08/2024 1:00 PM EDT Cardiac Studies Cardiac Studies, [address] [place] [phone] 01/03/2025 3:00 PM EDT Procedure Only Urology [address] [place] [address] [place] [address] Willi Smith Jr., MD [address] [place] [address] 01/10/2025 9:30 AM EDT Office Visit Hematology/Oncology [facility] [address] [facility] [place] [phone] Xavi Gramajo MD [address] [place] [address] 05/22/2025 10:45 AM EDT Office Visit Urology, [facility] [address] [place] [phone] Valdemar Prado MD [address] [place] [address] Health Maintenance Due Date Last Done Comments Albumin/Creatinine Ratio 1963 DTap/Tdap Vaccines (1 - Tdap) 1964 Adult Wellness Visit 02/01/2020 01/31/2019 COVID-19 Vaccine ( season) 2024 07/22/2022, 07/22/2022, 02/11/2022, Additional history exists CKD PHOS USE SMARTSET 65245 09/11/202408/17, 09/11/2023, 07/14/2021, Additional history exists Depression Screening 12/26/2024 12/27/2023 GFR 04/12/2025 10/13/2024, 12/04/2024, 04/12/2024, Additional history exists CKD HGB USE SMARTSET 93433 10/13/202510/13, 10/13/2024, 07/24/2024, Additional history exists Pneumococcal [...] Procedure Name Priority Date/Time Associated Diagnosis Comments OUTSIDE LAB RESULTS 11/24/2024 documented in this encounter Results * OUTSIDE LAB RESULTS (11/24/2024) 11/24/2024 Chuy Batista MD LABORATORY Final Resu lt documented in this encounter Advance Directives * [...] Power of Attor philipp? 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
[2024-12-19] MEDS: cefTRIAXone SODIUM 2,000 MG/50 ML BAG IV STA (10:47)
--- NOTE | 2024-12-19 11:03 | History & Physical Report ---
Date of Service December 19, 2024 Assessment & Plan (1) Fall: (2) Confusion: (3) Complicated urinary tract infection: (4) Hypoxia: (5) Aortic stenosis: (6) Orthostatic hypotension: (7) Anemia: (8) Adrenal insufficiency: (9) Dementia: (10) Mild cognitive impairment: (11) COPD (chronic obstructive pulmonary disease): (12) Stage 3 chronic kidney disease: Plan 79 year old male with PMH significant for adrenal insufficiency on chronic steroids, asthma/COPD, ANDRZEJ not on CPAP, 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 Fall May be due to multiple etiologies including ambulatory dysfunction, orthostatic hypotension, severe aortic stenosis Pelvis x-ray negative for fracture CT abdomen revealed compression fracture of L2-L3 - this is unchanged from previous CT on 12/01 at [facility] Orthostatic vitals PT/OT consults Cardiology consult for as below Tylenol and lidocaine patch PRN for back pain Confusion Likely due to UTI but underlying dementia/mild cognitive impairment could be contributing Labs remarkable for chronic anemia, lactate 2.3 Repeat lactate pending UA consistent with UTI but will follow culture given chronic tatum Blood cultures pending Empiric abx for 48 hours Complicated UTI Chronic tatum with recurrent UTIs History of VRE UTI UA +nitrate, leuk esterase, WBC, bacteria, yeast VRE UTI on 11/24 treated with Linezolid x7 days Received rocephin and daptomycin in ED with pharmacy consultation Empiric abx for 48 hours Hypoxia Documented O2 sat 85% on RA in ED Likely transient or could be due to underlying ANDRZEJ On 2L NC CXR negative Aortic stenosis Echo on 12/08/2024 showed severe aortic stenosis Has not seen Cardiology since June 2024 Patient reporting episodes of passing out and worsening SOB on exertion Consult Cardiology and appreciate recs Orthostatic hypotension Continue florinef Consult Endocrinology for ACTH stim test in AM Anemia Chronic, stable Continue ferrous sulfate MWF Adrenal insufficiency Continue hydrocortisone Dementia Mild cognitive impairment Continue memantine COPD Chronic, stable Continue Trelegy, PRN albuterol CKD III Chronic, stable DVT Prophylaxis: on Eliquis Code Status: FULL CODE - As per discussion at bedside with the patient. PCP: Dr Deondre Hill and Dr Chuy Batista Disposition: admit to [facility] Patient seen in collaboration with Dr Gongora. Please see addendum. I spent a total of 75 minutes coordinating, documenting and providing care for this patient excluding time spent in the performance of separately billed services or time spent by another provider/QHP. Admission and Anticipated Discharge Date Admission Date: 12/19/2024 History of Present Illness Chief Complaint: fall, confusion Primary Care Provider: Deondre Hill MD 79 year old male with PMH significant for adrenal insufficiency on chronic steroids, asthma/COPD, ANDRZEJ not on CPAP, 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 Patient reports that he passed out and fell on his butt this morning. He does not recall much from the event but denies dizziness or lightheadedness prior to going down. He did not hit his head and does not think he lost consciousness. He notes that he has had 3-4 falls over the last 3-4 months and reports that he keeps passing out. He also endorses SOB on exertion that has worsened over the last 3-4 months. He denies chest pain, recent illness, fevers, chills, cough, cold symptoms, abdominal pain, N/V, hematuria, hematochezia. He endorses an episode of diarrhea 3 days ago that has since resolved. He also reports worsening confusion over the last 3 weeks. I spoke with his to obtain further history and she notes that she has not witnessed any of his recent falls including the one today. She reports that she heard him yell out for her and when she went downstairs, she saw he was on the floor in the living room with his walker. She notes that he is not supposed to get out of his hospital bed without her. She says he did not tell her that he passed out but she did not see this or any recent fall to know for sure. She also reports that he has been increasingly confused, which that in addition to his urine smelling foul yesterday, is why she asked her home health nurse to drop a urine sample off because she is concerned he has another UTI. She notes that he has been "out of it" and does not seem to know what is going on for the last few weeks. Per chart review, patient was recently admitted at [facility] from 12/01-12/02 for another fall. He underwent imaging including CXR (negative), pelvis xray (negative for fracture, stable Paget's disease of right hemipelvis), head CT (negative for acute process, mild small vessel disease), cervical spine CT (negative), chest CT (small pericardial effusion, coronary artery calcifications, ascending thoracic aorta dilated to 4.3cm), abdomen CT (mild bladder wall thickening and adjacent fat stranding suggestive of cystitis, nephrolithiasis without hydronephrosis, compression fracture of L2 and L3, moderate degenerative joint disease L4-L5, mild to moderate degenerative joint disease in bilateral hip joints), brain MRI (no acute infarction, chronic microvascular ischemic changes). He was admitted to the hospitalist service for sepsis with VIOLETA due to complicated UTI and hematuria from malpositioned tatum. He was previously being treated with macrobid for VRE UTI discovered on urine culture from home health collection. While at [facility], infectious disease was consulted, and recommended stopping macrobid and treat the VRE UTI with Linezolid 600mg bid x7 days. They recommended Urology follow up for cystoscopy and patient has an appointment scheduled on 01/03/2025. His urine culture from [facility] on 12/02 did not grow anything. Allergies Allergy/AdvReac Type Severity Reaction Status Date / Time Iodinated Contrast Media Allergy Severe LOVERSOL---CARDIAC Verified 11/12/24 20:[address] CONTRAST clindamycin Allergy Intermediate Rash Verified 11/12/24 20:27 cranberry Allergy Unknown Unknown Verified 11/12/24 20:27 caffeine Allergy Verified 11/13/24 15:45 chocolate flavor AdvReac Severe DIARRHEA/ Verified 11/12/24 20:27 Cannot take, interacts w/ medications. pembrolizumab [From Keytruda] AdvReac Intermediate myocarditis Verified 11/12/24 20:27 Home Medications Medication Instructions Recorded Confirmed Type acetaminophen 325 mg tablet 650 mg (2 x 325 mg) PO Q4H PRN 06/08/24 12/19/24 Rx fever or pain #30 tabs ascorbic acid (vitamin C) 1,000 mg 1,000 mg PO DAILY #30 tabs 06/08/24 12/19/24 Rx tablet cholecalciferol (vitamin D3) 125 125 mcg PO DAILY #30 tabs 06/08/24 12/19/24 Rx mcg (5,000 unit) tablet (Vitamin D3) cyanocobalamin (vitamin B-12) 1,000 mcg PO DAILY #30 tabs 06/08/24 12/19/24 Rx 1,000 mcg tablet epinephrine 0.3 mg/0.3 mL 0.3 mg (0.3 mL) IM UD PRN 06/08/24 12/19/24 Rx injection, auto-injector Anaphylaxis #3 ea fluticasone fur. 200 mcg-umeclid 1 inh inhalation DAILY #1 ea 06/08/24 12/19/24 Rx 62.5 mcg-vilant 25 mcg inhalat.powder (Trelegy Ellipta) lidocaine 5 % topical patch 2 patch transdermal DAILY #20 ea 06/08/24 12/19/24 Rx memantine 10 mg tablet 10 mg PO BID #60 tabs 06/08/24 12/19/24 Rx multivitamin with minerals-folic 1 tab PO DAILY #30 tabs 06/08/24 12/19/24 Rx acid 200 mcg chewable tablet (Multivitamin Gummies) omeprazole 20 mg capsule,delayed 20 mg PO DAILY #30 caps 06/08/24 12/19/24 Rx release solifenacin 5 mg tablet 5 mg PO DAILY #30 tabs 06/08/24 12/19/24 Rx hydrocortisone 10 mg tablet 20 mg (2 x 10 mg) PO QAM #0 tabs 07/07/24 12/19/24 Rx (Cortef) mirabegron 25 mg tablet,extended 25 mg PO DAILY 07/28/24 12/19/24 History release 24 hr (Myrbetriq) albuterol sulfate 90 mcg/actuation 2 puff inhalation Q6H PRN 08/21/24 12/19/24 History aerosol inhaler Shortness Of Breath Or Wheezing fludrocortisone 0.1 mg tablet 0.1 mg PO DAILY 08/21/24 12/19/24 History ferrous sulfate 325 mg (65 mg 325 mg PO 3XWK 11/03/24 12/19/24 History iron) tablet,delayed release hydrocortisone 10 mg tablet 10 mg PO .DAILY @ 1500 11/03/24 12/19/24 History (Cortef) magnesium chloride 64 mg 64 mg PO DAILY 11/03/24 12/19/24 History (magnesium chloride) tablet,delayed release apixaban 2.5 mg tablet (Eliquis) 2.5 mg PO BID #60 tabs 11/16/24 12/19/24 Rx Past Med/Surg History Problem List (Updated 12/19/24 @ 13:35 by JOSÉ ANTONIO Rivera) Hypoxia Orthostatic hypotension Fall Elevated lactic acid level (Acute) Complicated urinary tract infection (Acute) Hypertension History of DVT (deep vein thrombosis) hx "many years ago" unknown etiology acute on chronic DVT during 12/2022 [facility] admission- Coumadin d/c'ed due to anemia and hematuria; IVC filter placed 12/28/22 COPD (chronic obstructive pulmonary disease) Anemia Urinary tract infection associated with indwelling urethral catheter (Acute) Confusion Dementia (Acute) Mild cognitive impairment (Acute) Obstructive sleep apnea (Acute) Adrenal insufficiency (Acute 06/04/14) Stage 3 chronic kidney disease (Acute) History of pulmonary embolism hx "many years ago" unknown etiology Aortic stenosis Severe per 12/08/2024 ECHO Medical History (Updated 12/19/24 @ 13:35 by JOSÉ ANTONIO Rivera) Fall from chair, initial encounter Ambulatory dysfunction VRE (vancomycin-resistant Enterococci) Cellulitis Cellulitis of right leg Acute UTI Aspiration pneumonia Chronic indwelling Tatum catheter Complicated urinary tract infection Acute kidney injury superimposed on chronic kidney disease Parainfluenza infection Influenza A (H1N1) Acute hypokalemia Delirium Chronic indwelling Tatum catheter Bladder cancer Hx of prostatic malignancy ~ 2013- s/p Lupron and XRT Weakness Recurrent UTI Anxiety Elevated blood pressure reading Complicated UTI (urinary tract infection) Myocarditis Primary bladder malignant neoplasm Coagulopathy Fracture of multiple teeth Sacral pressure sore Urethral stricture Ascending aorta dilation Mild- 4.4cm per 11/2022 ECHO Obesity Venous insufficiency (chronic) (peripheral) Radiation cystitis Kidney stones x1 episode. no surgery needed. Cardiac arrest hx r/t IV Contrast Dye "many years ago" Allergic rhinitis Contrast media allergy Hiatal hernia Surgical History S/P IVC filter S/P cataract extraction History of right cataract extraction History of colonoscopy H/O sinus surgery History of appendectomy S/P TURP (status post transurethral resection of prostate) Status post cystoscopy (11/07/13) Family History Father Prostate cancer Brother Prostate cancer Mother Thyroid cancer Cancer Other No family history of adverse response to anesthesia Social History (Updated 12/19/24 @ 12:08 by JOSÉ ANTONIO Rivera) Smoking Status: Never smoker Second Hand Exposure: No; Do You Dip or Chew Tobacco: No; Hx Alcohol Use: Yes Alcohol type: beer Alcohol Intake Frequency: Monthly or Less Hx Substance Use: No Preferred Language: Danish Communication Ability: Effective Visual Impairment: Limited Hearing Ability: Normal Assessment Manager Required: No Beliefs That Will Affect Care: [facility] marital status: Current Living Situation: Spouse Current Living Situation Comment: [facility] current occupational status: retired How many Children do You have: 0 Feels Safe at Home: Yes Diet: regular during the past year weight has: decreased > 10 lbs Seatbelt Use: always Do you think of yourself as: straight/heterosexual Gender Identity: Male Assistive Devices: Bedside Commode, Hospital Bed and Walker Review of Systems Review of Systems: All systems reviewed & are unremarkable except as noted in HPI & below Physical Exam Physical Exam: General/Psych: WD/WN, sitting up in bed, NAD, conversing easily, euthymic affect Head: normocephalic, atraumatic Eyes: normal inspection, PERRL, conjunctivae pink, anicteric sclerae ENT: external ear and nose normal, oropharynx normal Neck: normal visual inspection, trachea midline, no thyromegaly Respiratory: normal respiratory effort, lungs clear to auscultation, no wheeze/rales/rhonchi, no accessory muscle use Cardiovascular: regular rate and rhythm, systolic murmur appreciated, no JVD Extremities: no cyanosis or clubbing, normal peripheral pulses, non-pitting BLE edema Abdomen/GI: normal bowel sounds, soft, nontender, no hepatosplenomegaly, no suprapubic tenderness Neurologic/MSK: A+Ox3, CN's II-XI intact bilaterally, motor strength 5/5, moves all extremities Skin: no rashes, normal color, warm and dry Results & Data Results & Data Vital Signs (Past 12 Hours) Vital Signs Temp Pulse Pulse Resp BP BP Pulse Ox 12/19/24 10:00 71 20 146/75 H 100 12/19/24 09:15 85 L 12/19/24 09:00 73 18 162/85 H 100 12/19/24 08:35 77 12/19/24 08:24 79 93 12/19/24 08:20 36.7 C 85 24 151/78 H 100 12/19/24 08:00 36.7 C 85 24 151/78 H 100 O2 Del Method O2 Flow Rate 12/19/24 10:00 Nasal Cannula 2 12/19/24 09:15 Room Air 12/19/24 09:00 Nasal Cannula 2 12/19/24 08:35 12/19/24 08:24 Room Air 12/19/24 08:20 Room Air 12/19/24 08:00 Room Air Laboratory Results Short CBC 12/19/24 Range/Units 08:14 WBC 9.60 (4.8-10.8) K/ul Hgb 11.9 L (14.0-18.0) g/dl Hct 35.7 L (42.0-52.0) % Plt Count 221 (130-400) K/uL BMP 12/19/24 08:14 Sodium 142 Potassium 3.8 Chloride 110 H Carbon Dioxide 24 BUN 15 Creatinine 1.28 Glucose 93 Calcium 8.9 Liver Function 12/19/24 Range/Units 08:14 Total Bilirubin 1.4 H (0.2-1.0) mg/dl AST 12 L (13-39) U/L ALT 7 (7-52) U/L Alkaline Phosphatase 88 (34-104) U/L Albumin 3.8 (3.4-5.0) gm/dl Urine 12/19/24 Range/Units 08:52 Urine Color Yellow Urine Appearance Cloudy A (Clear) Urine pH 7.0 (4.5-7.5) Ur Specific [place] 1.011 (1.000-1.030) Urine Protein 2+ H (Negative) Urine Glucose (UA) Negative (Negative) I have independently reviewed and interpreted patient's admitting labs including CBC, CMP, PTT, PT/INR, mag, troponin, lactate, procalcitonin, UA. Diagnostic Findings Abdomen/Pelvis CT 12/19/24 08:18 CT OF THE ABDOMEN AND PELVIS WITHOUT CONTRAST CLINICAL HISTORY: Lower abdominal pain following fall. COMPARISON STUDY: CT of the abdomen and pelvis June 01, 2024. Pelvis radiograph performed earlier today. TECHNIQUE: Axial images of the abdomen and pelvis were obtained without IV con trast. Images were reviewed in the axial, sagittal, and coronal planes. Automated exposure control was utilized for the study. A dose lowering technique was utilized adhering to the principles of ALARA. FINDINGS: A small pericardial effusion is similar to CT of June 01, 2024. There is a trace right pleural effusion. No hemoperitoneum or pneumoperitoneum is present. The solid abdominal viscera are suboptimally assessed on unenhanced exam. There is no evidence for traumatic injury to the liver, spleen, adrenal glands, kidneys or pancreas. A 4 mm left renal calculus is present. There are no ureteral calculi. Mild left hydroureteronephrosis is new since prior CT. There is a 2 mm right upper pole renal calculus. IVC filter is in place. There is no evidence for a bowel obstruction. The prostate is surgically absent. Tatum balloon within the bladder is noted. Bladder wall thickening with adjacent stranding is similar to prior CT. Widening of the symphysis pubis with associated erosion of the medial pubic bones has developed. 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 No acute pelvic or hip fractures are present. L2 and L3 superior endplate compression fractures have developed since CT of June 01, 2024. No retropulsion. There is no extension into the posterior elements. There is 40% loss of height of the L2 vertebral body and 30% loss of height of the L3 vertebral body. IMPRESSION: 1. Mild L2 and L3 compression fractures, new since CT of June 01, 2024. These are age indeterminate although likely subacute to chronic. 2. No additional traumatic findings within the abdomen or pelvis. 3. Widening of the symphysis pubis with associated erosion of the medial pubic bones which has developed since prior CT. This may be degenerative however an infectious process cannot be excluded. 4. Interval development of mild left hydroureteronephrosis of uncertain etiology. Left ureter dilated to the level the bladder. Persistent bladder wall thickening with adjacent stranding, unchanged. 5. Bilateral nephrolithiasis. No ureteral calculi. ACT 112: Negative or not required by law. Electronically signed by: Boris Keys M.D. 12/19/2024 9:07 AM Pelvis X-Ray 12/19/24 08:18 XR pelvis 1-2V routine CLINICAL HISTORY: fall COMPARISON: 07/28/2024 FINDINGS: Stable small surgical clips at the pubic symphysis. Stable mild degenerative changes at the hips. Stable mild sclerosis at the pubis. No fracture or dislocation seen. IVC filter is partially visualized. IMPRESSION: No pelvic fracture seen. ACT 112: Negative or not required by law. Electronically signed by: Hawk Hensley M.D. 12/19/2024 8:45 AM Chest X-Ray 12/19/24 08:19 XR chest 1V portable CLINICAL HISTORY: fall COMPARISON STUDY: 11/12/2024 FINDINGS: Stable mild cardiomegaly without pulmonary vascular congestion. Stable mild scarring or atelectasis at the left lung base. No other consolidation or pleural effusion. No pneumothorax. No acute osseous finding seen. IMPRESSION: No acute findings. ACT 112: Negative or not required by law. Electronically signed by: Hawk Hensley M.D. 12/19/2024 8:44 AM Supervising Physician Co-Signing Physician Notes Patient is a 79-year-old male with adrenal insufficiency, COPD, chronic DVT, PE, bladder cancer, prostate cancer, chronic Tatum with recurrent UTIs and other medical problems presents with history of increased confusion from baseline and was noted to have foul-smelling urine yesterday. Patient states having dyspnea on exertion and believed to have multiple falls over the past few months. Patient's history is unreliable due to baseline intermittent confusion. Please review HPI for complete details of presentation. I personally reviewed blood work and imaging studies. He was found to be hypoxic in 80s in ED requiring 2 L supplemental oxygen to maintain saturations. Noted elevated lactate 2.3. UA suggestive of UTI. CT abdomen showed L2-L3 compression fractures also noted on prior imaging. Also showed findings suggestive of mild left hydroureteronephrosis and bladder wall thickening with adjacent stranding, nephrolithiasis. Urine cultures grew VRE, Enterococcus faecalis, Klebsiella. Tatum catheter exchanged in ED prior ER physician. Physical Exam: Vitals signs as noted above General Appearance:Moderately built and nourished, no apparent distress Head: normocephalic, Atraumatic Eyes: normal inspection, EOMI Neck: supple, Trachea midline Respiratory/Chest: Normal breath sounds, CTA, No accessory muscle use Cardiovascular: S1, S2, + murmur Abdomen/GI:Soft, Non tender, Bowel sounds present Extremities/Musculoskeletal:normal inspection, 2+edema R>L, chronic venous stasis changes Neurologic/Psych:AAOX2, grossly no focal neurological deficits Skin: normal color, warm Acute metabolic encephalopathy Likely due to recurrent UTIs Difficult to assess change in mental status given underlying dementia/mild cognitive impairment Suspected recurrent falls L2-L3 compression fractures patient denies any back pain currently Complicated UTI with obstructive uropathy Hypoxia Severe aortic stenosis Lactic acidosis Chronic adrenal insufficiency Chronic orthostatic hypotension Agree with empiric antibiotics PT OT, fall precautions, orthostatics Follow-up cultures Given significant aortic stenosis, will request cardiology evaluation ACTH stimulation test as recommended by cardiology Trend lactate levels Patient was scheduled for outpatient cystoscopy on 01/03/25, follows with [facility] urology I personally interviewed and examined the patient at bedside. I have reviewed the advanced practitioner's documentation on the date of service referred in note and agree with plan. Patient's care is coordinated with Erma CHOU. Please refer to the documentation above for details of patient's presentation and for discussion of other issues. I spent a total [id number] coordinating, documenting, and providing care for this patient excluding time spent in the performance of separately billed services or time spent by another provider/QHP. (1) Fall Encounter type: initial encounter Qualified Code(s): W19.XXXA - Unspecified fall, initial encounter (5) Aortic stenosis Cardiac valve disease etiology: nonrheumatic Qualified Code(s): I35.0 - Nonrheumatic aortic (valve) stenosis (7) Anemia Anemia type: unspecified type Qualified Code(s): D64.9 - Anemia, unspecified (9) Dementia Dementia behavioral or psychological symptom: unspecified whether behavioral, psychotic, or mood disturbance or anxiety Dementia severity: unspecified severity Dementia type: unspecified type Qualified Code(s): F03.90 - Unspecified dementia, unspecified severity, without behavioral disturbance, psychotic disturbance, mood disturbance, and anxiety (12) Stage 3 chronic kidney disease Chronic kidney disease stage 3 subtype: unspecified whether 3a or 3b Qualified Code(s): N18.30 - Chronic kidney disease, stage 3 unspecified
[2024-12-19] MEDS: DAPTOMYCIN IV ONE (11:27)
[2024-12-19] MEDS: SODIUM CHLORIDE 0.9% 2,000 ML IV ONE (11:38)
[2024-12-19] MEDS: SODIUM CHLORIDE 0.9% 500 ML IV ONE (11:50)
--- NOTE | 2024-12-19 15:56 | Cardiology Progress Note ---
Date of Service December 19, 2024 Assessment & Plan (1) Fall: (2) Orthostatic hypotension: (3) Adrenal insufficiency: (4) Severe aortic stenosis: Plan: Patient with complex issues. Although he could certainly be symptomatic from the standpoint of severe aortic stenosis with shortness of breath with exertion and syncope, I have concerns that his presentation is not related to the aortic stenosis alone. He has had progressive debilitation over the last year. 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 Urinalysis today suggest recurrent infection having recently been prescribed a 7-day course of linezolid. With ongoing concerns of infection, pursuit of aortic valve intervention is not feasible due to concerns of infecting the prosthesis. Agree with plan for orthostatic vital signs and reassessment of his adrenal insufficiency, perhaps with cosyntropin stimulation test to try to determine if he is on the appropriate dose of fludrocortisone supplementation. Plan on a repeat limited echo for reassessment of the small pericardial effusion noted 2 weeks ago. Further recommendations be forthcoming as this hospitalization develops. Zak Rubio, Cardiology Subjective Mr High is a 79 year old male seen in cardiology consultation per the request of JOSÉ ANTONIO Mo for the evaluation of syncope, With the patient having a complex cardiac history that includes Keytruda related myocarditis and severe aortic valve stenosis. The patient is known to the undersigned's that followed him as an outpatient. He has a history of past prostate carcinoma and bladder carcinoma for which he underwent transurethral resection of bladder tumor and received his first dose of Keytruda on 07/26/2023 and the second dose in August,. Shortly thereafter he was admitted due to shortness of breath with noted finding of an elevation in high-sensitivity troponin. A cardiac MRI performed at [facility] in August 2023 was consistent with myocarditis with normal ejection fraction. During that hospital stay he was initially treated with high-dose IV methylprednisolone and was transition to high-dose prednisone, initially 100 mg daily on a tapering dose. It is noted that he has a longstanding history of adrenal insufficiency and had been on baseline corticosteroid therapy with fludrocortisone. He is prednisone had been weaned and he is back on fludrocortisone. He has yet to have a repeat cardiac MRI and follow-up of the findings of myocarditis. A recent transthoracic echocardiogram however performed on 12/03 at [facility] which had been interpreted by the undersigned revealed progression of his previously noted aortic valve stenosis. Severe aortic stenosis was noted with peak CW velocity of 4 m/s and mean gradient 37 mmHg, calculated aortic valve area 0.9 cm. The left ventricular ejection fraction was normal at 60 to 64%. A small circumferential pericardial effusion was noted without tamponade. The patient has an indwelling Devlin catheter and has had intermittent hematuria he has had multiple recent hospitalizations at this institution and had also been admitted to [facility] last month. Urine culture obtained on 02/03/2024 was notable for vancomycin sensitive Enterococcus as obtained within the [facility] system at that time. A urine culture obtained at [facility] on 11/24/2024 was notable for Sylvia albicans as well as vancomycin-resistant Enterococcus. The patient is somewhat of a poor historian about recent events. His spouse had been with him in the emergency room today but had just gone home before I arrived to see him. The best description he could provide was that he was walking at home and collapsed he does not recall any details with regards to the event. Review of Systems Review of Systems: Unobtainable due to cognitive status Physical Exam Physical Exam: Temp Pulse Resp BP Pulse Ox O2 Del Method O2 Flow Rate 36.7 C 76 16 136/70 98 Nasal Cannula 2 12/19/24 10:57 12/19/24 16:00 12/19/24 16:00 12/19/24 16:00 12/19/24 16:00 12/19/24 16:00 12/19/24 16:00 General: Chronically ill in appearance Eyes: conjunctiva are pink and non-injected, sclera clear Neck: normal jugular venous pulse, no hepatojugular reflux Chest: normal shape and normal respiratory effort Lungs: clear to auscultation and percussion Cardiac Exam: - regular heart sounds,1/6 systolic murmur Abdomen: abdomen soft, non-tender, no abnormal masses and no hepatosplenomegaly Musculoskeletal: no gait disturbance, no weakness Extremities: no edema and no cyanosis Neuro:awake, conversant, follows commands, no focal motor deficits : Devlin catheter in place draining clear yellow urine Results & Data Vital Signs (Past 12 Hours) Vital Signs Temp Pulse Pulse Resp BP BP Pulse Ox 12/19/24 15:00 75 16 124/76 93 12/19/24 14:00 66 16 145/80 H 100 12/19/24 13:57 67 23 100 12/19/24 13:30 148/83 H 12/19/24 13:24 66 16 12/19/24 13:00 141/73 H 12/19/24 13:00 65 15 100 12/19/24 13:00 66 16 141/73 H 100 12/19/24 12:48 70 15 100 12/19/24 12:45 142/74 H 12/19/24 12:36 70 15 100 12/19/24 12:36 72 12/19/24 12:12 69 14 100 12/19/24 12:00 70 16 137/71 100 12/19/24 11:48 71 15 100 12/19/24 11:30 144/77 H 12/19/24 11:15 70 19 100 12/19/24 11:03 68 16 100 12/19/24 11:00 143/79 H 12/19/24 11:00 73 15 143/79 H 100 12/19/24 10:57 36.7 C 69 16 142/74 H 100 12/19/24 10:54 71 14 100 12/19/24 10:30 142/74 H 12/19/24 10:30 142/74 H 12/19/24 10:30 72 17 100 12/19/24 10:03 71 21 100 12/19/24 10:00 146/75 H 12/19/24 10:00 71 20 146/75 H 100 12/19/24 09:51 72 18 100 12/19/24 09:30 144/79 H 12/19/24 09:30 73 15 100 12/19/24 09:15 85 L 12/19/24 09:00 72 18 100 12/19/24 09:00 162/85 H 12/19/24 09:00 73 18 162/85 H 100 12/19/24 08:35 77 12/19/24 08:30 172/83 H 12/19/24 08:24 79 93 12/19/24 08:20 36.7 C 85 24 151/78 H 100 12/19/24 08:00 36.7 C 85 24 151/78 H 100 O2 Del Method O2 Flow Rate 12/19/24 15:00 Nasal Cannula 2 12/19/24 14:00 Nasal Cannula 2 12/19/24 13:57 Nasal Cannula 2 12/19/24 13:30 12/19/24 13:24 12/19/24 13:00 12/19/24 13:00 12/19/24 13:00 Nasal Cannula 2 12/19/24 12:48 12/19/24 12:45 12/19/24 12:36 12/19/24 12:36 12/19/24 12:12 12/19/24 12:00 Nasal Cannula 2 12/19/24 11:48 12/19/24 11:30 12/19/24 11:15 12/19/24 11:03 12/19/24 11:00 12/19/24 11:00 Nasal Cannula 2 12/19/24 10:57 Nasal Cannula 2 12/19/24 10:54 12/19/24 10:30 12/19/24 10:30 12/19/24 10:30 12/19/24 10:03 12/19/24 10:00 12/19/24 10:00 Nasal Cannula 2 12/19/24 09:51 12/19/24 09:30 12/19/24 09:30 12/19/24 09:15 Room Air 12/19/24 09:00 12/19/24 09:00 12/19/24 09:00 Nasal Cannula 2 12/19/24 08:35 12/19/24 08:30 12/19/24 08:24 Room Air 12/19/24 08:20 Room Air 12/19/24 08:00 Room Air Laboratory Results Cardiac Enzymes 12/19/24 Range/Units 08:14 AST 12 L (13-39) U/L Troponin I High Sens 5.5 (0-20) pg/ml Coagulation 12/19/24 Range/Units 08:14 PT 11.6 (9.0-12.0) Seconds CBC 12/19/24 Range/Units 08:14 WBC 9.60 (4.8-10.8) K/ul RBC 4.12 L (4.70-6.10) M/uL Hgb 11.9 L (14.0-18.0) g/dl Hct 35.7 L (42.0-52.0) % Plt Count 221 (130-400) K/uL Neut # (Auto) 6.81 H (1.40-6.50) K/uL Lymph # (Auto) 1.72 (1.20-3.40) K/uL [place] # (Auto) 0.88 H (0.11-0.59) K/uL Eos # (Auto) 0.13 (0.00-0.50) K/uL Baso # (Auto) 0.03 (0.00-0.20) K/uL Comprehensive Metabolic Panel 12/19/24 Range/Units 08:14 Sodium 142 (136-145) mmol/L Potassium 3.8 (3.5-5.1) mmol/L Chloride 110 H (98-107) mmol/L Carbon Dioxide 24 (21-32) mmol/L BUN 15 (6-23) mg/dl Creatinine 1.28 (0.6-1.4) mg/dl Glucose 93 (70-99(Fasting)) mg/dl Calcium 8.9 (8.6-10.3) mg/dl AST 12 L (13-39) U/L ALT 7 (7-52) U/L Alkaline Phosphatase 88 (34-104) U/L Total Protein 6.5 (6.0-8.3) gm/dl Albumin 3.8 (3.4-5.0) gm/dl Diagnostic Findings Lactate level 2.3 trending to 0.6 mmol/L today, 12/19/2024 EKG performed 12/19/2024 interpreted independently: Sinus rhythm at 71 bpm, mild nonspecific repolarization abnormalities. Normal AL interval. Summary of transthoracic echocardiogram performed/ as an outpatient: The LV wall thickness is mildly increased (concentric). The left ventricular wall motion is normal. The qualitative LV ejection fraction is 60-64% (normal). Severe aortic valve stenosis is present. The proximal ascending thoracic aorta is mildly enlarged. There is a small circumferential pericardial effusion. Fibrinous strands are present consistent with some degree of chronicity. Tamponade is absent. Compared to the previous study dated 02/23/2024, the severity of the aortic stenosis has progressed with peak CW velocity 4 meters/second, mean gradient 37 millimeters Hg, MERCY=0.9 cm 2. There has been a subtle increase in the amount of pericardial fluid. (1) Fall Encounter type: initial encounter Qualified Code(s): W19.XXXA - Unspecified fall, initial encounter
[2024-12-19] MEDS ORDERED: POLYETHYLENE (MIRALAX) 17 GM PACK PO PRN (17:00)
[2024-12-19] MEDS ORDERED: LIDOCAINE 5% 1 PATCH TD PRN (17:00)
[2024-12-19] MEDS ORDERED: ALBUTEROL HFA 8 GM INHALER INH PRN (17:00)
[2024-12-19] MEDS: HYDROCORTISONE 10 MG TAB PO SCH (17:52)
[2024-12-19] MEDS: APIXABAN 2.5 MG TAB PO SCH (21:03)
[2024-12-19] MEDS: MEMANTINE HCL 10 MG TAB PO SCH (21:04)
[2024-12-19] MEDS: ACETAMINOPHEN 325 MG TAB PO PRN (21:05)
--- OUTSIDE RECORDS SUMMARY | 2024-12-20 03:42 | External Medical Summary ---
Author Name Unknown Address Unknown Organization K01:[facility] [place] [address] [facility] Laboratory Report Ordering Provider Test Date Status ALBA BARRETT 12/18/2024 13:41:14 Preliminary <10,000 colonies/ml mixed no rmal rich Observation Date Value Abnormality Reference (Units) Status Bacteria identified in Specimen by Culture 12/18/2024 13:41:14 [id number]^NON LACTOSE FERMENTING GRAM NEGATIVE BACILLI Abnormal Preliminary >100,000 colonies/mL Non lac tose fermenting gram negative bacilli
Test: Culture, Urine, Quantitative
Specimen Source: Urine, Catheter
Specimen Type: Urine
Specimen Date: 12/18/2024 1341
Result Date: 12/19/2024 1636
Result Status: Preliminary result
Abnormal: Yes
Resulting Lab: [facility] [place]
[address]
[place] [address]

CULTURE

>100,000 colonies/mL Non lactose fermenting gram negative bacilli (Abnormal)

<10,000 colonies/ml mixed normal rich

null Performing Location [facility] [place] [address] [facility] [id number]
[2024-12-20 06:04] LABS: Hematocrit (blood only) 29.9 % (42.0-52.0); Mean Corpuscular Hemoglobin 29.7 pg (25.0-34.0); Mean Corpuscular Hgb Conc 33.4 g/dL (32.0-36.0); Mean Corpuscular Volume 88.7 fL (80.0-100.0); Platelet Count 206 K/uL (130-400); RDW Coefficient of Variation 15.6 % (11.5-14.5); RDW Standard Deviation 50.2 fL (36.4-46.3); Red Blood Count 3.37 M/uL (4.70-6.10); White Blood Count 5.06 K/ul (4.8-10.8)
[2024-12-20 06:19] LABS: BUN Creatinine Ratio 11.7 (10-20); Calcium 8.1 mg/dl (8.6-10.3); Creatinine Clr Calc Pharmacy 60.9 ml/min; Potassium 3.6 mmol/L (3.5-5.1)
[2024-12-20] MEDS ORDERED: PHA DELIRIUM CONSULT PRN (07:31)
[2024-12-20] MEDS: CYANOCOBALAMIN (B-12) 500 MCG TABLET PO SCH (08:27)
[2024-12-20] MEDS: CHOLECALCIFEROL 125 MCG (5,000 UNITS) TAB PO SCH (08:27)
[2024-12-20] MEDS: ASCORBIC ACID 500 MG TAB PO SCH (08:27)
[2024-12-20] MEDS: HYDROCORTISONE 10 MG TAB PO SCH (08:28)
[2024-12-20] MEDS: FLUDROCORTISONE ACETATE 0.1 MG TAB PO SCH (08:28)
[2024-12-20] MEDS: FLUTICASONE/VILANTEROL 200/25MCG 14 PUFFS/INHALER INH SCH (08:28)
[2024-12-20] MEDS: FERROUS SULFATE 325 MG TAB PO SCH (08:28)
[2024-12-20] MEDS: OXYBUTYNIN CHLORIDE XL 5 MG TABCR PO SCH (08:29)
[2024-12-20] MEDS: PANTOprazole 40 MG TAB PO SCH (08:29)
[2024-12-20] MEDS: VIBEGRON 75 MG TAB PO SCH (08:29)
[2024-12-20] MEDS ORDERED: DAPTOmycin 1,000 MG in SYRINGE 0 ML IV SCH (11:00)
[2024-12-20] MEDS: cefTRIAXone SODIUM 2,000 MG/50 ML BAG IV SCH (11:40)
--- NOTE | 2024-12-20 12:24 | Cardiology Progress Note ---
Date of Service December 20, 2024 Assessment & Plan (1) Fall: (2) Orthostatic hypotension: (3) Adrenal insufficiency: (4) Severe aortic stenosis: Plan: Patient with complex issues. Although he could certainly be symptomatic from the standpoint of severe aortic stenosis with shortness of breath with exertion and syncope, I have concerns that his presentation is not related to the aortic stenosis alone. He has had progressive debilitation over the last year. 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 Urinalysis today suggest recurrent infection having recently been prescribed a 7-day course of linezolid. Patient currently on ceftriaxone. Cultures pending. Repeat echocardiogram today revealed stable small circumferential pericardial effusion, unchanged compared to previous echocardiogram performed as an outpatient last month. No evidence of tamponade. I reviewed the outpatient endocrinology note from 10/16/2024. Will proceed with trial of midodrine as recommended. Will start with low-dose 2.5 mg 3 times daily. Zak Rubio, Cardiology Admission and Anticipated Discharge Date Admission Date: December 19, 2024 Subjective Patient seen in cardiology follow-up. Cognitive impairment due to dementia versus delirium noted. Telemetry reveals sinus rhythm with PVCs and artifact. Review of Systems Review of Systems: Unobtainable due to cognitive status Physical Exam Physical Exam: Temp Pulse Resp BP Pulse Ox O2 Del Method O2 Flow Rate 36.6 C 68 18 144/73 H 100 Room Air 2 12/20/24 11:45 12/20/24 11:45 12/20/24 11:45 12/20/24 11:45 12/20/24 11:45 12/20/24 11:45 12/20/24 08:03 General: Chronically ill in appearance Eyes: conjunctiva are pink and non-injected, sclera clear Neck: normal jugular venous pulse, no hepatojugular reflux Chest: normal shape and normal respiratory effort Lungs: clear to auscultation and percussion Cardiac Exam: - regular heart sounds,1/6 systolic murmur Abdomen: abdomen soft, non-tender, no abnormal masses and no hepatosplenomegaly Musculoskeletal: no gait disturbance, no weakness Extremities: no edema and no cyanosis Neuro:awake, conversant, follows commands, no focal motor deficits : Devlin catheter in place draining clear yellow urine Results & Data Vital Signs (Past 12 Hours) Vital Signs Temp Pulse Pulse Resp BP Pulse Ox O2 Del Method 12/20/24 11:45 36.6 C 68 18 144/73 H 100 Room Air 12/20/24 08:03 36.4 C 71 18 128/73 99 Nasal Cannula 12/20/24 07:47 65 12/20/24 07:26 Nasal Cannula 12/20/24 04:00 36.7 C 67 18 126/76 100 Nasal Cannula O2 Flow Rate 12/20/24 11:45 12/20/24 08:03 2 12/20/24 07:47 12/20/24 07:26 2 12/20/24 04:00 2 (1) Fall Encounter type: initial encounter Qualified Code(s): W19.XXXA - Unspecified fall, initial encounter
[2024-12-20] MEDS: MAGNESIUM CHLORIDE W/CALCIUM 64MG DELAYED REL TAB PO SCH (13:08)
--- NOTE | 2024-12-20 13:23 | Hospitalist Progress Note ---
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 Fall -likely 2/2 ambulatory dysfunction, orthostatic hypotension, severe aortic stenosis -Pelvis x-ray negative for fracture -CT abdomen revealed compression fracture of L2-L3 - this is unchanged from previous CT on 12/01 at [facility] Plan: -PT/OT consults -appreciate cardiology consult, consideration for syncope etiology Confusion -UA is strongly suggestive of UTI in setting of confusion, however patient denies traditional symptoms -in setting of known dementia -likely multifactorial, hyperactive delirium, infection, dementia Plan: -stop daptomycin, continue ceftriaxone for now -stop anticholinergics if possible -f/u culture results -start thiamine, folic acid, check TSH Complicated E. coli UTI Chronic tatum with recurrent UTIs History of VRE UTI -UA +nitrate, leuk esterase, WBC, bacteria, yeast -VRE UTI on 11/24 treated with Linezolid x7 days -deescalate abx to ceftriaxone Severe Aortic stenosis -Echo on 12/08/2024 showed severe aortic stenosis -Has not seen Cardiology since June 2024 -Patient reporting episodes of passing out and worsening SOB on exertion -Consult Cardiology and appreciate recs Orthostatic hypotension -Continue florinef -Consult Endocrinology for ACTH stim test in AM Anemia -Chronic, stable -Continue ferrous sulfate MWF Adrenal insufficiency -Continue hydrocortisone Dementia Mild cognitive impairment -Continue memantine COPD -Chronic, stable -Continue Trelegy, PRN albuterol CKD III Chronic, stable I spent a total of 50 minutes in direct patient care, including [id number] time with the patient and/or family, reviewing medical records, ordering and reviewing diagnostic tests, and coordinating care with other healthcare providers. This time includes: history taking, physical examination, medical decision making, counseling, ECG interpretation, imaging interpretation, lab interpretation, orders, and education, excluding time spent in the performance of separately billed services. Admission and Anticipated Discharge Date Admission Date: December 19, 2024 Subjective Patient seen and examined at bedside. Alert and oriented x2-3 but confused at this times. States he wants to figure out why this is all happening. States he feels ok today, no concerning symptoms. Review of Systems Review of Systems: CONSTITUTIONAL: Patient denies fevers, chills, sweats and weight changes. EYES: Patient denies any visual symptoms. EARS, NOSE, AND THROAT: No difficulties with hearing. No symptoms of rhinitis or sore throat. CARDIOVASCULAR: Patient denies chest pains, palpitations, orthopnea and paroxysmal nocturnal dyspnea. RESPIRATORY: No dyspnea on exertion, no wheezing or cough. GI: No nausea, vomiting, diarrhea, constipation, abdominal pain, hematochezia or melena. : No urinary hesitancy or dribbling. No nocturia or urinary frequency. No abnormal urethral discharge. MUSCULOSKELETAL: No myalgias or arthralgias. NEUROLOGIC: No chronic headaches, no seizures. Patient denies numbness, tingling or weakness. PSYCHIATRIC: Patient denies problems with mood disturbance. No problems with anxiety. ENDOCRINE: No excessive urination or excessive thirst. DERMATOLOGIC: Patient denies any rashes or skin changes. Physical Exam Physical Exam: Gen: A&O 2-3 NAD HEENT: NCAT, EOMI, not icteric. External ears normal. No rhinorrhea. Moist mucous membranes. Neck: Supple, full range of motion, no observable masses, No meningeal sign. Lungs: No Respiratory distress. CV: RRR, no edema. Abdomen: Soft, nondistended, No rebound tenderness. MSK: No joint swelling, no redness. Skin: No rashes, petechiae, lesions. Normal color per patient. Neuro: Normal Gait, Grossly intact. Psych: confused Results & Data Results & Data Vital Signs (Past 12 Hours) Vital Signs Temp Pulse Pulse Resp BP Pulse Ox O2 Del Method 12/20/24 11:45 36.6 C 68 18 144/73 H 100 Room Air 12/20/24 08:03 36.4 C 71 18 128/73 99 Nasal Cannula 12/20/24 07:47 65 12/20/24 07:26 Nasal Cannula 12/20/24 04:00 36.7 C 67 18 126/76 100 Nasal Cannula O2 Flow Rate 12/20/24 11:45 12/20/24 08:03 2 12/20/24 07:47 12/20/24 07:26 2 12/20/24 04:00 2 Laboratory Results -personally reviewed, Hgb marginally below baseline at 10, no leukocytosis noted Medications Administered Acetaminophen (Acetaminophen 325 Mg Tab) 650 mg PO Q4H PRN PRN Reason: pain/fever Stop: 01/18/25 16:59 Last Admin: 12/19/24 21:05 Dose: 650 mg Documented By: CHRIS Apixaban (Apixaban 2.5 Mg Tab) 2.5 mg PO BID TAWNY Stop: 01/18/25 20:59 Last Admin: 12/20/24 08:27 Dose: 2.5 mg Documented By: Admin: 12/19/24 21:03 Dose: 2.5 mg Documented By: CHRIS Ascorbic Acid (Ascorbic Acid 500 Mg Tab) 1,000 mg PO DAILY TAWNY Stop: 01/19/25 08:59 Last Admin: 12/20/24 08:27 Dose: 1,000 mg Documented By: RRR Cyanocobalamin (Cyanocobalamin (B-12) 500 Mcg Tablet) 1,000 mcg PO DAILY TAWNY Stop: 01/19/25 08:59 Last Admin: 12/20/24 08:27 Dose: 1,000 mcg Documented By: RRR Ferrous Sulfate (Ferrous Sulfate 325 Mg Tab) 325 mg PO MoWeFr@0900 TAWNY Stop: 01/19/25 08:59 Last Admin: 12/20/24 08:28 Dose: 325 mg Documented By: RRR Fludrocortisone Acetate (Fludrocortisone Acetate 0.1 Mg Tab) 0.1 mg PO DAILY TAWNY Stop: 01/19/25 08:59 Last Admin: 12/20/24 08:28 Dose: 0.1 mg Documented By: RRR Fluticasone/Vilanterol (Fluticasone/Vilanterol 200/25mcg 14 Puffs/Inhaler) 1 puffs INH DAILY TAWNY Stop: 01/19/25 08:59 Last Admin: 12/20/24 08:28 Dose: 1 puffs Documented By: RRR Hydrocortisone (Hydrocortisone 10 Mg Tab) 10 mg PO DAILY@1500 [facility] Stop: 01/18/25 16:59 Last Admin: 12/19/24 17:52 Dose: 10 mg Documented By: [facility] Hydrocortisone (Hydrocortisone 10 Mg Tab) 20 mg PO QAM TAWNY Stop: 01/19/25 08:59 Last Admin: 12/20/24 08:28 Dose: 20 mg Documented By: RRR Ceftriaxone Sodium (Rocephin) 2,000 mg in 50 mls @ 100 mls/hr IV Q24H TAWNY Stop: 12/21/24 10:59 Last Infusion: 12/20/24 12:46 Dose: Infused Documented By: Admin: 12/20/24 11:40 Dose: 100 mls/hr Documented By: RRR Magnesium Chloride (Magnesium Chloride W/Calcium 64mg Delayed Rel Tab) 64 mg PO DAILY@1300 TAWNY Stop: 01/19/25 12:59 Last Admin: 12/20/24 13:08 Dose: 64 mg Documented By: RRR Memantine (Memantine Hcl 10 Mg Tab) 10 mg PO BID TAWNY Stop: 01/18/25 20:59 Last Admin: 12/20/24 08:29 Dose: 10 mg Documented By: Admin: 12/19/24 21:04 Dose: 10 mg Documented By: CHRIS Miscellaneous (Remove Lidoderm Patch) 1 each N/A DAILY@2100 TAWNY Stop: 01/18/25 20:59 Last Admin: 12/19/24 21:04 Dose: 1 each Documented By: [facility] Pantoprazole Sodium (Pantoprazole 40 Mg Tab) 40 mg PO DAILY TAWNY Stop: 01/19/25 08:59 Last Admin: 12/20/24 08:29 Dose: 40 mg Documented By: RRR Vibegron (Vibegron 75 Mg Tab) 75 mg PO DAILY TAWNY Stop: 01/19/25 08:59 Last Admin: 12/20/24 08:29 Dose: 75 mg Documented By: RRR Vitamin D (Cholecalciferol 125 Mcg (5,000 Units) Tab) 125 mcg PO DAILY TAWNY Stop: 01/19/25 08:59 Last Admin: 12/20/24 08:27 Dose: 125 mcg Documented By: RRR (1) Fall Encounter type: initial encounter Qualified Code(s): W19.XXXA - Unspecified fall, initial encounter (5) Aortic stenosis Cardiac valve disease etiology: nonrheumatic Qualified Code(s): I35.0 - Nonrheumatic aortic (valve) stenosis (7) Anemia Anemia type: unspecified type Qualified Code(s): D64.9 - Anemia, unspecified (9) Dementia Dementia type: unspecified type Dementia severity: unspecified severity Dementia behavioral or psychological symptom: unspecified whether behavioral, psychotic, or mood disturbance or anxiety Qualified Code(s): F03.90 - Unspecified dementia, unspecified severity, without behavioral disturbance, psychotic disturbance, mood disturbance, and anxiety (12) Stage 3 chronic kidney disease Chronic kidney disease stage 3 subtype: unspecified whether 3a or 3b Qualified Code(s): N18.30 - Chronic kidney disease, stage 3 unspecified
[2024-12-20 14:09] LABS: Thyroid Stimulating Hormone 0.561 uIu/ml (0.300-4.500)
[2024-12-20] MEDS: FOLIC ACID 1 MG TAB PO SCH (14:58)
[2024-12-20] MEDS: THIAMINE HCL 100 MG TAB PO SCH (14:58)
--- NOTE | 2024-12-20 15:24 | Urology Consultation ---
Date of Consultation December 20, 2024 Assessment & Plan (1) Complicated urinary tract infection: 79-year-old male with history of prostate cancer s/p radiation and bladder cancer (s/p surgery, now off Keytruda secondary to myocarditis, established with urology and oncology at [facility]) and multiple medical comorbidities who presented to the ED on 12/19/2024 for evaluation after a fall and worsening confusion. He was admitted for fall and complicated UTI. Patient currently afebrile, hemodynamically stable Labs reviewedcreatinine 1.28, WBC 5.06, hemoglobin 10.0 Urine culture prelim with E. 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 Agree with plan. 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 Recommend ID consultation. Unfortunately there is no urologic intervention for this at this time. If further imaging is warranted, an MRI would be more beneficial. Maintain follow-up with primary urologist. History of Present Illness Reason for Consultation: pubic symphysis widening Requesting Physician: Dr. Sunshine Attending Physician: Sai Sunshine MD History of Present Illness This is a 79-year-old male with history of prostate cancer s/p radiation and bladder cancer (s/p surgery, now off Keytruda secondary to myocarditis, established with urology and oncology at [facility]) and multiple medical erin rbidities who presented to the ED on 12/19/2024 for evaluation after a fall and worsening confusion. Patient was admitted to the hospital medicine service for fall, complicated UTI. On arrival he was afebrile and hemodynamically stable. Labs showed WBC 9.6, hemoglobin 11.9, creatinine 1.28, lactate 2.3. Urinalysis showed 2+ blood, positive nitrates, 3+ LE, >50 WBC, 11-20 RBC, 4+ bacteria and yeast present. Pelvic x-ray showed no pelvic fracture seen. CT abdomen pelvis showed widening of the symphysis pubis with associated erosion of the medial pubic bones which has developed since prior CT, may be degenerative or infectious. Mild left hydroureteronephrosis, left ureter dilated to the level of the bladder. Persistent bladder wall thickening with adjacent stranding, unchanged. Bilater al nephrolithiasis, no ureteral calculi. CT also noted mild L2 and L3 compression fractures. He was started on Rocephin and daptomycin in ED. Per admitting notes, patient was recently hospitalized at [facility] and was treated for VRE UTI on 11/24 with linezolid x 7 days. Urology is consulted for pubic symphysis widening. Labs reviewedcreatinine 1.28, WBC 5.06, hemoglobin 10.0. Urine culture prelim E. coli, blood cultures with no growth after 24 hours. Patient seen and examined at bedside. He is awake and resting in bed. He is asking how to change the channels on his television. He is interactive and answers questions, but is unable to provide much meaningful history. He denies abdominal or flank discomfort. Devlin intact. Denies nausea, vomiting, fever or chills. Allergies Allergy/AdvReac Type Severity Reaction Status Date / Time Iodinated Contrast Media Allergy Severe LOVERSOL---CARDIAC Verified 11/12/24 20:[address] CONTRAST clindamycin Allergy Intermediate Rash Verified 11/12/24 20:27 cranberry Allergy Unknown Unknown Verified 11/12/24 20:27 caffeine Allergy Verified 11/13/24 15:45 chocolate flavor AdvReac Severe DIARRHEA/ Verified 11/12/24 20:27 Cannot take, interacts w/ medications. pembrolizumab [From [employer]] AdvReac Intermediate myocarditis Verified 11/12/24 20:27 Home Medications Medication Instructions Recorded Confirmed Type acetaminophen 325 mg tablet 650 mg (2 x 325 mg) PO Q4H PRN 06/08/24 12/19/24 Rx fever or pain #30 tabs ascorbic acid (vitamin C) 1,000 mg 1,000 mg PO DAILY #30 tabs 06/08/24 12/19/24 Rx tablet cholecalciferol (vitamin D3) 125 125 mcg PO DAILY #30 tabs 06/08/24 12/19/24 Rx mcg (5,000 unit) tablet (Vitamin D3) cyanocobalamin (vitamin B-12) 1,000 mcg PO DAILY #30 tabs 06/08/24 12/19/24 Rx 1,000 mcg tablet epinephrine 0.3 mg/0.3 mL 0.3 mg (0.3 mL) IM UD PRN 06/08/24 12/19/24 Rx injection, auto-injector Anaphylaxis #3 ea fluticasone fur. 200 mcg-umeclid 1 inh inhalation DAILY #1 ea 06/08/24 12/19/24 Rx 62.5 mcg-vilant 25 mcg inhalat.powder (Trelegy Ellipta) lidocaine 5 % topical patch 2 patch transdermal DAILY #20 ea 06/08/24 12/19/24 Rx memantine 10 mg tablet 10 mg PO BID #60 tabs 06/08/24 12/19/24 Rx multivitamin with minerals-folic 1 tab PO DAILY #30 tabs 06/08/24 12/19/24 Rx acid 200 mcg chewable tablet (Multivitamin Gummies) omeprazole 20 mg capsule,delayed 20 mg PO DAILY #30 caps 06/08/24 12/19/24 Rx release solifenacin 5 mg tablet 5 mg PO DAILY #30 tabs 06/08/24 12/19/24 Rx hydrocortisone 10 mg tablet 20 mg (2 x 10 mg) PO QAM #0 tabs 07/07/24 12/19/24 Rx (Cortef) mirabegron 25 mg tablet,extended 25 mg PO DAILY 07/28/24 12/19/24 History release 24 hr (Myrbetriq) albuterol sulfate 90 mcg/actuation 2 puff inhalation Q6H PRN 08/21/24 12/19/24 History aerosol inhaler Shortness Of Breath Or Wheezing fludrocortisone 0.1 mg tablet 0.1 mg PO DAILY 08/21/24 12/19/24 History ferrous sulfate 325 mg (65 mg 325 mg PO 3XWK 11/03/24 12/19/24 History iron) tablet,delayed release hydrocortisone 10 mg tablet 10 mg PO .DAILY @ 1500 11/03/24 12/19/24 History (Cortef) magnesium chloride 64 mg 64 mg PO DAILY 11/03/24 12/19/24 History (magnesium chloride) tablet,delayed release apixaban 2.5 mg tablet (Eliquis) 2.5 mg PO BID #60 tabs 11/16/24 12/19/24 Rx midodrine 10 mg tablet 10 mg PO BID 12/19/24 12/19/24 History Patient History Medical History (Updated 12/22/24 @ 10:08 by Zak Rubio DO) Fall from chair, initial encounter Ambulatory dysfunction VRE (vancomycin-resistant Enterococci) Cellulitis Cellulitis of right leg Acute UTI Aspiration pneumonia Chronic indwelling Devlin catheter Complicated urinary tract infection Acute kidney injury superimposed on chronic kidney disease Parainfluenza infection Influenza A (H1N1) Acute hypokalemia Delirium Chronic indwelling Devlin catheter Bladder cancer Weakness Recurrent UTI Anxiety Elevated blood pressure reading Complicated UTI (urinary tract infection) Myocarditis Primary bladder malignant neoplasm Coagulopathy Fracture of multiple teeth Sacral pressure sore Urethral stricture Ascending aorta dilation Mild- 4.4cm per 11/2022 ECHO Obesity Venous insufficiency (chronic) (peripheral) Radiation cystitis Kidney stones x1 episode. no surgery needed. Cardiac arrest hx r/t IV Contrast Dye "many years ago" Allergic rhinitis Contrast media allergy Hiatal hernia Surgical History S/P IVC filter S/P cataract extraction History of right cataract extraction History of colonoscopy H/O sinus surgery History of appendectomy S/P TURP (status post transurethral resection of prostate) Status post cystoscopy (11/07/13) Family History Father Prostate cancer Brother Prostate cancer Mother Thyroid cancer Cancer Other No family history of adverse response to anesthesia Social History Smoking Status: Never smoker Second Hand Exposure: No; Do You Dip or Chew Tobacco: No; Hx Alcohol Use: Yes Alcohol type: beer Alcohol Intake Frequency: Monthly or Less Hx Substance Use: No Preferred Language: Greenlandic Communication Ability: Effective Visual Impairment: Limited Hearing Ability: Normal 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 Required: No Beliefs That Will Affect Care: None marital status: Current Living Situation: Spouse Current Living Situation Comment: Jen current occupational status: retired How many Children do You have: 0 Feels Safe at Home: Yes Safety Concerns: Feels Safe At This Time Diet: regular during the past year weight has: decreased > 10 lbs Seatbelt Use: always Do you think of yourself as: straight/heterosexual Gender Identity: Male Assistive Devices: Bedside Commode, Hospital Bed and Walker Review of Systems Review of Systems: All systems reviewed & are unremarkable except as noted in HPI & below Physical Exam Constitutional: no acute distress Respiratory: normal respiratory effort; no respiratory distress and no labored breathing Gastrointestinal (Abdomen): Inspection/Auscultation: abdomen normal to inspection Percussion/Palpation: abdomen soft; abdomen nontender and no guarding Musculoskeletal: Head/Neck/Chest: normocephalic Neurologic: moves all extremities and awake Psychiatric: Orientation: alert, oriented to person and cooperative Genitourinary: Devlin patent and draining clear yellow urine Results & Data Vital Signs (Past 12 Hours) Vital Signs Temp Pulse Pulse Resp BP Pulse Ox O2 Del Method 12/20/24 14:53 79 12/20/24 11:45 36.6 C 68 18 144/73 H 100 Room Air 12/20/24 08:03 36.4 C 71 18 128/73 99 Nasal Cannula 12/20/24 07:47 65 12/20/24 07:26 Nasal Cannula 12/20/24 04:00 36.7 C 67 18 126/76 100 Nasal Cannula O2 Flow Rate 12/20/24 14:53 12/20/24 11:45 12/20/24 08:03 2 12/20/24 07:47 12/20/24 07:26 2 12/20/24 04:00 2 PG Care Time/CCT Total # of Minutes Spent Total Time Spent with Patient: Total time spent is greater than 50% in coordination of care (as documented) at patient's floor/unit and/or counseling patient: Coding Level of Care Code 38394 INT INP/OBS CARE 2/55MIN Diagnoses Complicated urinary tract infection N39.0
[2024-12-20] MEDS: MIDODRINE HCL 2.5 MG TAB PO SCH (17:08)
--- NOTE | 2024-12-20 17:27 | Electrocardiogram Report ---
Test Reason : Blood Pressure : */* mmHG Vent. Rate : 71 BPM Atrial Rate : 71 BPM P-R Int : 176 ms QRS Dur : 92 ms QT Int : 400 ms P-R-T Axes : 26 31 11 degrees QTcB Int : 434 ms Poor data quality, interpretation may be adversely affected Normal sinus rhythm Nonspecific ST abnormality Abnormal ECG When compared with ECG of 12-Nov-2024 19:54, No significant change was found Confirmed by Massimo Reyes ([id number]) on 12/20/2024 5:27:08 PM Referred By: Confirmed By: Massimo Reyes
[2024-12-21 08:23] LABS: Hemoglobin 10.2 g/dl (14.0-18.0); Mean Corpuscular Hemoglobin 29.1 pg (25.0-34.0); Mean Corpuscular Hgb Conc 32.9 g/dL (32.0-36.0); Mean Corpuscular Volume 88.6 fL (80.0-100.0); Platelet Count 226 K/uL (130-400); RDW Coefficient of Variation 15.8 % (11.5-14.5); RDW Standard Deviation 50.8 fL (36.4-46.3); White Blood Count 5.02 K/ul (4.8-10.8)
--- NOTE | 2024-12-21 10:32 | Infectious Disease Consult ---
Date of Service December 21, 2024 Telehealth Information I performed this visit using a real-time telehealth connection between my location and the patients location ([facility]). After connecting through interactive tele-video, patient was identified by name and date of and/or wristband check.Patient (or authorized healthcare sales representative graphic art) was informed that this was a telemedicine visit and it was being conducted confidentially over secure lines. My office door was closed and no one else was present in the room with me.Patient (or authorized healthcare sales representative graphic art) provided consent to proceed with the visit, expressed an understanding of privacy and security of the telemedicine visit, and gave permission to have a hospital sales representative graphic art in the room in order to assist with the visit and to conduct portions of the visit, as needed. I informed the patient (or authorized healthcare sales representative graphic art) that I reviewed their record and presented the opportunity for them to ask any questions regarding the visit today. The patient agreed to participate. History of Present Illness History of Present Illness HPI: The patient is a 79-year-old male with a significant medical history, including prostate cancer treated with radiation and bladder cancer treated surgically, who has been off Keytruda due to myocarditis. He is established with urology and oncology at [facility]. The patient presented to the emergency department on December 19, 2024, after experiencing a fall and exhibiting worsening confusion. Upon arrival, he was afebrile and hemodynamically stable. Laboratory findings revealed a white blood cell count of 9.6, hemoglobin of 11.9, creatinine of 1.28, and a lactate level of 2.3. Urinalysis indicated 2+ blood, positive nitrates, 3+ leukocyte esterase, over 50 white blood cells, 11-20 red blood cells, and 4+ bacteria and yeast. A pelvic X-ray showed no evidence of fracture. However, a CT of the abdomen and pelvis revealed widening of the symphysis pubis with associated erosion of the medial pubic bones, which could be degenerative or infectious in nature. Additionally, there was mild left hydroureteronephrosis with dilation of the left ureter to the level of the bladder, persistent bladder wall thickening with adjacent stranding, and bilateral nephrolithiasis without ureteral calculi. Mild L2 and L3 compression fractures were also noted. The patient was started on ceftriaxone (Rocephin) and daptomycin in the emergency department. He had been recently hospitalized and treated for a VRE urinary tract infection on November 24 with a 7-day course of linezolid. Preliminary urine culture results indicate E. coli, while blood cultures have shown no growth after 24 hours. On today's evaluation, the patient is awake and resting, able to interact and answer questions, albeit with limited meaningful history. He denies any abdominal or flank pain, nausea, vomiting, fever, or chills. A Devlin catheter is in place and functioning. Urology was consulted regarding the widening of the symphysis pubis, suspecting possible osteomyelitis due to prior pelvic radiation. They have recommended continuing broad-spectrum antibiotics, an infectious disease consultation, and consideration of a pelvic MRI for further evaluation.Urology has no plan for acute genitourinary intervention at this time. Allergies Allergy/AdvReac Type Severity Reaction Status Date / Time Iodinated Contrast Media Allergy Severe LOVERSOL---CARDIAC Verified 11/12/24 20:[address] CONTRAST clindamycin Allergy Intermediate Rash Verified 11/12/24 20:27 cranberry Allergy Unknown Unknown Verified 11/12/24 20:27 caffeine Allergy Verified 11/13/24 15:45 chocolate flavor AdvReac Severe DIARRHEA/ Verified 11/12/24 20:27 Cannot take, interacts w/ medications. pembrolizumab [From [employer]] AdvReac Intermediate myocarditis Verified 11/12/24 20:27 Home Medications Medication Instructions Recorded Confirmed Type acetaminophen 325 mg tablet 650 mg (2 x 325 mg) PO Q4H PRN 06/08/24 12/19/24 Rx fever or pain #30 tabs ascorbic acid (vitamin C) 1,000 mg 1,000 mg PO DAILY #30 tabs 06/08/24 12/19/24 Rx tablet cholecalciferol (vitamin D3) 125 125 mcg PO DAILY #30 tabs 06/08/24 12/19/24 Rx mcg (5,000 unit) tablet (Vitamin D3) cyanocobalamin (vitamin B-12) 1,000 mcg PO DAILY #30 tabs 06/08/24 12/19/24 Rx 1,000 mcg tablet epinephrine 0.3 mg/0.3 mL 0.3 mg (0.3 mL) IM UD PRN 06/08/24 12/19/24 Rx injection, auto-injector Anaphylaxis #3 ea fluticasone fur. 200 mcg-umeclid 1 inh inhalation DAILY #1 ea 06/08/24 12/19/24 Rx 62.5 mcg-vilant 25 mcg inhalat.powder (Trelegy Ellipta) lidocaine 5 % topical patch 2 patch transdermal DAILY #20 ea 06/08/24 12/19/24 Rx memantine 10 mg tablet 10 mg PO BID #60 tabs 06/08/24 12/19/24 Rx multivitamin with minerals-folic 1 tab PO DAILY #30 tabs 06/08/24 12/19/24 Rx acid 200 mcg chewable tablet (Multivitamin Gummies) omeprazole 20 mg capsule,delayed 20 mg PO DAILY #30 caps 06/08/24 12/19/24 Rx release solifenacin 5 mg tablet 5 mg PO DAILY #30 tabs 06/08/24 12/19/24 Rx hydrocortisone 10 mg tablet 20 mg (2 x 10 mg) PO QAM #0 tabs 07/07/24 12/19/24 Rx (Cortef) mirabegron 25 mg tablet,extended 25 mg PO DAILY 07/28/24 12/19/24 History release 24 hr (Myrbetriq) albuterol sulfate 90 mcg/actuation 2 puff inhalation Q6H PRN 08/21/24 12/19/24 History aerosol inhaler Shortness Of Breath Or Wheezing fludrocortisone 0.1 mg tablet 0.1 mg PO DAILY 08/21/24 12/19/24 History ferrous sulfate 325 mg (65 mg 325 mg PO 3XWK 11/03/24 12/19/24 History iron) tablet,delayed release hydrocortisone 10 mg tablet 10 mg PO .DAILY @ 1500 11/03/24 12/19/24 History (Cortef) magnesium chloride 64 mg 64 mg PO DAILY 11/03/24 12/19/24 History (magnesium chloride) tablet,delayed release apixaban 2.5 mg tablet (Eliquis) 2.5 mg PO BID #60 tabs 11/16/24 12/19/24 Rx midodrine 10 mg tablet 10 mg PO BID 12/19/24 12/19/24 History Patient History Medical History (Updated 12/22/24 @ 10:08 by Zak Rubio DO) Fall from chair, initial encounter Ambulatory dysfunction VRE (vancomycin-resistant Enterococci) Cellulitis Cellulitis of right leg Acute UTI Aspiration pneumonia Chronic indwelling Devlin catheter Complicated urinary tract infection Acute kidney injury superimposed on chronic kidney disease Parainfluenza infection Influenza A (H1N1) Acute hypokalemia Delirium Chronic indwelling Devlin catheter Bladder cancer Weakness Recurrent UTI Anxiety Elevated blood pressure reading Complicated UTI (urinary tract infection) Myocarditis Primary bladder malignant neoplasm Coagulopathy Fracture of multiple teeth Sacral pressure sore Urethral stricture Ascending aorta dilation Mild- 4.4cm per 11/2022 ECHO Obesity Venous insufficiency (chronic) (peripheral) Radiation cystitis Kidney stones x1 episode. no surgery needed. Cardiac arrest hx r/t IV Contrast Dye "many years ago" Allergic rhinitis Contrast media allergy Hiatal hernia Surgical History S/P IVC filter S/P cataract extraction History of right cataract extraction History of colonoscopy H/O sinus surgery History of appendectomy S/P TURP (status post transurethral resection of prostate) Status post cystoscopy (11/07/13) Family History Father Prostate cancer Brother Prostate cancer Mother Thyroid cancer Cancer Other No family history of adverse response to anesthesia Social History Smoking Status: Never smoker Second Hand Exposure: No; Do You Dip or Chew Tobacco: No; Hx Alcohol Use: Yes Alcohol type: beer Alcohol Intake Frequency: Monthly or Less Hx Substance Use: No Preferred Language: Lithuanian Communication Ability: Effective Visual Impairment: Limited Hearing Ability: Normal 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8 C 65 20 124/69 98 Room Air 12/21/24 07:27 72 12/21/24 04:00 36.7 C 76 18 131/75 98 Room Air 12/20/24 23:11 36.6 C 73 18 131/82 98 Room Air 12/20/24 23:07 72 12/20/24 22:31 Nasal Cannula O2 Flow Rate 12/21/24 07:41 12/21/24 07:27 12/21/24 04:00 12/20/24 23:11 12/20/24 23:07 12/20/24 22:31 2
--- NOTE | 2024-12-21 11:51 | Cardiology Progress Note ---
Date of Service December 21, 2024 Assessment & Plan (1) Fall: (2) Orthostatic hypotension: (3) Adrenal insufficiency: (4) Severe aortic stenosis: Plan: Patient with complex issues. Although he could certainly be symptomatic from the standpoint of severe aortic stenosis with shortness of breath with exertion and syncope, I have concerns that his presentation is not related to the aortic stenosis alone. He has had progressive debilitation over the last year. 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 Recent VRE UTI , and now has E. coli on urine culture. There is concern for possible osteomyelitis of the pubic symphysis for which an MRI is planned. With ongoing concerns of infection, pursuit of aortic valve intervention is not feasible due to concerns of infecting the prosthesis. Agree with plan for orthostatic vital signs and reassessment of his adrenal insufficiency, perhaps with cosyntropin stimulation test to try to determine if he is on the appropriate dose of fludrocortisone supplementation. Repeat echocardiogram 12/20/24 revealed stable small circumferential pericardial effusion, unchanged compared to previous echocardiogram performed as an outpatient last month. No evidence of tamponade. I reviewed the outpatient endocrinology note from 10/16/2024. Will proceed with trial of midodrine as recommended. Zak Rubio, DO Cardiology Admission and Anticipated Discharge Date Admission Date: December 19, 2024 Subjective Patient seen in cardiology follow up. Denies subjective complaints. Telemetry reveals SR in the 70s. Physical Exam Physical Exam: Temp Pulse Resp BP Pulse Ox O2 Del Method O2 Flow Rate 36.7 C 73 20 112/69 99 Room Air 2 12/21/24 11:40 12/21/24 11:40 12/21/24 11:40 12/21/24 11:40 12/21/24 11:40 12/21/24 11:40 12/20/24 22:31 General: Chronically ill in appearance Eyes: conjunctiva are pink and non-injected, sclera clear Neck: normal jugular venous pulse, no hepatojugular reflux Chest: normal shape and normal respiratory effort Lungs: clear to auscultation and percussion Cardiac Exam: - regular heart sounds,1/6 systolic murmur Abdomen: abdomen soft, non-tender, no abnormal masses and no hepatosplenomegaly Musculoskeletal: no gait disturbance, no weakness Extremities: no edema and no cyanosis Neuro:awake, conversant, follows commands, no focal motor deficits : Devlin catheter in place draining clear yellow urine Results & Data Vital Signs (Past 12 Hours) Vital Signs Temp Pulse Pulse Resp BP Pulse Ox O2 Del Method 12/21/24 11:40 36.7 C 73 20 112/69 99 Room Air 12/21/24 07:41 36.8 C 65 20 124/69 98 Room Air 12/21/24 07:27 72 12/21/24 04:00 36.7 C 76 18 131/75 98 Room Air (1) Fall Encounter type: initial encounter Qualified Code(s): W19.XXXA - Unspecified fall, initial encounter
--- NOTE | 2024-12-21 12:57 | Magnetic Resonance Report ---
MR pelvis wo con CLINICAL HISTORY: pubic osteomyelitis vs. metastatic disease COMPARISON STUDY: CT scan of 12/19/2024 FINDINGS: There is motion artifact. Devlin catheter is present and the urinary bladder is decompressed . There is urinary bladder wall thickening and adjacent inflammation consistent with bladder infectio n. There is increased T2 osseous signal on either side of the pubic symphysis. This combined with the cortical irregularity seen on the CT scan is consistent with osteomyelitis at the pubic symphysis. N o adjacent soft tissue abscess seen. No other evidence of osteomyelitis seen. No pelvic fracture seen . Stable small bone cyst lateral left femoral head. Stable degenerative changes at the hips and visua lized lower lumbar spine. 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 ACT 112: Negative or not required by law. Electronically signed by: Hawk Hensley M.D. 12/21/2024 12:55 PM
--- NOTE | 2024-12-21 14:39 | Hospitalist Progress Note ---
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 Fall -likely 2/2 ambulatory dysfunction, orthostatic hypotension, severe aortic stenosis -Pelvis x-ray negative for fracture -CT abdomen revealed compression fracture of L2-L3 - this is unchanged from previous CT on 12/01 at [facility] Plan: -PT/OT consults -appreciate cardiology consult, consideration for syncope etiology Confusion -UA is strongly suggestive of UTI in setting of confusion, however patient denies traditional symptoms -in setting of known dementia -likely multifactorial, hyperactive delirium, infection, dementia Plan: -continue ceftriaxone for now -appreciate ID consultation -stop anticholinergics if possible -f/u culture results -continue thiamine, folic acid 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 coli UTI Chronic tatum with recurrent UTIs History of VRE UTI -UA +nitrate, leuk esterase, WBC, bacteria, yeast -continue ceftriaxone Severe Aortic stenosis -Echo on 12/08/2024 showed severe aortic stenosis -Has not seen Cardiology since June 2024 -Patient reporting episodes of passing out and worsening SOB on exertion -Consult Cardiology and appreciate recs Orthostatic hypotension -Continue florinef -Consult Endocrinology for ACTH stim test in AM Anemia -Chronic, stable -Continue ferrous sulfate MWF Adrenal insufficiency -Continue hydrocortisone COPD -Chronic, stable -Continue Trelegy, PRN albuterol CKD III Chronic, stable I spent a total of 55 minutes in direct patient care, including [id number] time with the patient and/or family, reviewing medical records, ordering and reviewing diagnostic tests, and coordinating care with other healthcare providers. This time includes: history taking, physical examination, medical decision making, counseling, ECG interpretation, imaging interpretation, lab interpretation, orders, and education, excluding time spent in the performance of separately billed services. Admission and Anticipated Discharge Date Admission Date: December 19, 2024 Subjective Patient seen and examined at bedside. Discussed case with at bedside as well. Discussed plan is to figure out course of abx with infectious diease then figure out disposition, and potential workup for TAVR. Review of Systems Review of Systems: CONSTITUTIONAL: Patient denies fevers, chills, sweats and weight changes. EYES: Patient denies any visual symptoms. EARS, NOSE, AND THROAT: No difficulties with hearing. No symptoms of rhinitis or sore throat. CARDIOVASCULAR: Patient denies chest pains, palpitations, orthopnea and pa roxysmal nocturnal dyspnea. RESPIRATORY: No dyspnea on exertion, no wheezing or cough. GI: No nausea, vomiting, diarrhea, constipation, abdominal pain, hematochezia or melena. : No urinary hesitancy or dribbling. No nocturia or urinary frequency. No abnormal urethral discharge. MUSCULOSKELETAL: No myalgias or arthralgias. NEUROLOGIC: No chronic headaches, no seizures. Patient denies numbness, tingling or weakness. PSYCHIATRIC: Patient denies problems with mood disturbance. No problems with anxiety. ENDOCRINE: No excessive urination or excessive thirst. DERMATOLOGIC: Patient denies any rashes or skin changes. Physical Exam Physical Exam: Gen: A&O 2 NAD HEENT: NCAT, EOMI, not icteric. External ears normal. No rhinorrhea. Moist mucous membranes. Neck: Supple, full range of motion, no observable masses, No meningeal sign. Lungs: No Respiratory distress. CV: RRR, no edema. Abdomen: Soft, nondistended, No rebound tenderness. MSK: No joint swelling, no redness. Skin: No rashes, petechiae, lesions. Normal color per patient. Neuro: Normal Gait, Grossly intact. Psych: confused Results & Data Results & Data Vital Signs (Past 12 Hours) Vital Signs Temp Pulse Pulse Resp BP Pulse Ox O2 Del Method 12/21/24 11:40 36.7 C 73 20 112/69 99 Room Air 12/21/24 07:41 36.8 C 65 20 124/69 98 Room Air 12/21/24 07:27 72 12/21/24 04:00 36.7 C 76 18 131/75 98 Room Air Laboratory Results -personally reviewed, no leukcytosis Medications Administered Acetaminophen (Acetaminophen 325 Mg Tab) 650 mg PO Q4H PRN PRN Reason: pain/fever Stop: 01/18/25 16:59 Last Admin: 12/19/24 21:05 Dose: 650 mg Documented By: CHRIS Apixaban (Apixaban 2.5 Mg Tab) 2.5 mg PO BID TAWNY Stop: 01/18/25 20:59 Last Admin: 12/21/24 10:13 Dose: 2.5 mg Documented By: Admin: 12/20/24 20:46 Dose: 2.5 mg Documented By: Admin: 12/20/24 08:27 Dose: 2.5 mg Documented By: Admin: 12/19/24 21:03 Dose: 2.5 mg Documented By: CHRIS Ascorbic Acid (Ascorbic Acid 500 Mg Tab) 1,000 mg PO DAILY TAWNY Stop: 01/19/25 08:59 Last Admin: 12/21/24 10:13 Dose: 1,000 mg Documented By: Admin: 12/20/24 08:27 Dose: 1,000 mg Documented By: TESS Cyanocobalamin (Cyanocobalamin (B-12) 500 Mcg Tablet) 1,000 mcg PO DAILY TAWNY Stop: 01/19/25 08:59 Last Admin: 12/21/24 10:14 Dose: 1,000 mcg Documented By: Admin: 12/20/24 08:27 Dose: 1,000 mcg Documented By: RRR Fludrocortisone Acetate (Fludrocortisone Acetate 0.1 Mg Tab) 0.1 mg PO DAILY TAWNY Stop: 01/19/25 08:59 Last Admin: 12/21/24 10:14 Dose: 0.1 mg Documented By: Admin: 12/20/24 08:28 Dose: 0.1 mg Documented By: TESS Fluticasone/Vilanterol (Fluticasone/Vilanterol 200/25mcg 14 Puffs/Inhaler) 1 puffs INH DAILY [facility] Stop: 01/19/25 08:59 Last Admin: 12/21/24 10:14 Dose: 1 puffs Documented By: Admin: 12/20/24 08:28 Dose: 1 puffs Documented By: TESS Folic Acid (Folic Acid 1 Mg Tab) 1 mg PO QAM [facility] Stop: 01/19/25 13:29 Last Admin: 12/21/24 10:15 Dose: 1 mg Documented By: Admin: 12/20/24 14:58 Dose: 1 mg Documented By: TESS Hydrocortisone (Hydrocortisone 10 Mg Tab) 10 mg PO DAILY@1500 [facility] Stop: 01/18/25 16:59 Last Admin: 12/20/24 14:58 Dose: 10 mg Documented By: Admin: 12/19/24 17:52 Dose: 10 mg Documented By: GLENN Hydrocortisone (Hydrocortisone 10 Mg Tab) 20 mg PO QAM [facility] Stop: 01/19/25 08:59 Last Admin: 12/21/24 10:16 Dose: 20 mg Documented By: Admin: 12/20/24 08:28 Dose: 20 mg Documented By: TESS Memantine (Memantine Hcl 10 Mg Tab) 10 mg PO BID [facility] Stop: 01/18/25 20:59 Last Admin: 12/21/24 10:16 Dose: 10 mg Documented By: Admin: 12/20/24 20:46 Dose: 10 mg Documented By: Admin: 12/20/24 08:29 Dose: 10 mg Documented By: Admin: 12/19/24 21:04 Dose: 10 mg Documented By: CHRIS Midodrine (Midodrine Hcl 2.5 Mg Tab) 2.5 mg PO TID@0800,1200,1700 [facility] Stop: 01/19/25 16:59 Last Admin: 12/21/24 13:25 Dose: 2.5 mg Documented By: Admin: 12/21/24 10:12 Dose: 2.5 mg Documented By: Admin: 12/20/24 17:08 Dose: 2.5 mg Documented By: TESS Miscellaneous (Remove Lidoderm Patch) 1 each N/A DAILY@2100 [facility] Stop: 01/18/25 20:59 Last Admin: 12/20/24 20:46 Dose: 1 each Documented By: Admin: 12/19/24 21:04 Dose: 1 each Documented By: CHRIS Pantoprazole Sodium (Pantoprazole 40 Mg Tab) 40 mg PO DAILY TAWNY Stop: 01/19/25 08:59 Last Admin: 12/21/24 10:16 Dose: 40 mg Documented By: Admin: 12/20/24 08:29 Dose: 40 mg Documented By: RRR Thiamine HCl (Thiamine Hcl 100 Mg Tab) 100 mg PO QAM TAWNY Stop: 01/19/25 13:29 Last Admin: 12/21/24 10:16 Dose: 100 mg Documented By: Admin: 12/20/24 14:58 Dose: 100 mg Documented By: RRR Vibegron (Vibegron 75 Mg Tab) 75 mg PO DAILY TAWNY Stop: 01/19/25 08:59 Last Admin: 12/21/24 10:17 Dose: 75 mg Documented By: Admin: 12/20/24 08:29 Dose: 75 mg Documented By: RRR Vitamin D (Cholecalciferol 125 Mcg (5,000 Units) Tab) 125 mcg PO DAILY TAWNY Stop: 01/19/25 08:59 Last Admin: 12/21/24 10:13 Dose: 125 mcg Documented By: Admin: 12/20/24 08:27 Dose: 125 mcg Documented By: RRR (1) Fall Encounter type: initial encounter Qualified Code(s): W19.XXXA - Unspecified fall, initial encounter (5) Aortic stenosis Cardiac valve disease etiology: nonrheumatic Qualified Code(s): I35.0 - Nonrheumatic aortic (valve) stenosis (7) Anemia Anemia type: unspecified type Qualified Code(s): D64.9 - Anemia, unspecified (9) Dementia Dementia type: unspecified type Dementia severity: unspecified severity Dementia behavioral or psychological symptom: unspecified whether behavioral, psychotic, or mood disturbance or anxiety Qualified Code(s): F03.90 - Unspecified dementia, unspecified severity, without behavioral disturbance, psychotic disturbance, mood disturbance, and anxiety (12) Stage 3 chronic kidney disease Chronic kidney disease stage 3 subtype: unspecified whether 3a or 3b Qualified Code(s): N18.30 - Chronic kidney disease, stage 3 unspecified
--- NOTE | 2024-12-21 17:14 | Infectious Disease Consult ---
Date of Service December 21, 2024 Telehealth Information I performed this visit using a real-time telehealth connection between my location and the patients location ([facility]). After connecting through interactive tele-video, patient was identified by name and date of and/or wristband check.Patient (or authorized healthcare insurance verification representative) was informed that this was a telemedicine visit and it was being conducted confidentially over secure lines. My office door was closed and no one else was present in the room with me.Patient (or authorized healthcare insurance verification representative) provided consent to proceed with the visit, expressed an understanding of privacy and security of the telemedicine visit, and gave permission to have a hospital insurance verification representative in the room in order to assist with the visit and to conduct portions of the visit, as needed. I informed the patient (or authorized healthcare insurance verification representative) that I reviewed their record and presented the opportunity for them to ask any questions regarding the visit today. The patient agreed to participate. Assessment & Plan (1) Osteomyelitis: Plan: possible osteomyelitis of pubic symphysis on CT. Pending MRI results. 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 He is established with urology and oncology at [facility]. The patient presented to the emergency department on December 19, 2024, after experiencing a fall and exhibiting worsening confusion. Upon arrival, he was afebrile and hemodynamically stable. Laboratory findings revealed a white blood cell count of 9.6, hemoglobin of 11.9, creatinine of 1.28, and a lactate level of 2.3. Urinalysis indicated 2+ blood, positive ni trates, 3+ leukocyte esterase, over 50 white blood cells, 11-20 red blood cells, and 4+ bacteria and yeast. A pelvic X-ray showed no evidence of fracture. However, a CT of the abdomen and pelvis revealed widening of the symphysis pubis with associated erosion of the medial pubic bones, which could be degenerative or infectious in nature. Additionally, there was mild left hydroureteronephrosis with dilation of the left ureter to the level of the bladder, persistent bladder wall thickening with adjacent stranding, and bilateral nephrolithiasis without ureteral calculi. Mild L2 and L3 compression fractures were also noted. The patient was started on ceftriaxone (Rocephin) and daptomycin in the emergency department. He had been recently hospitalized and treated for a VRE urinary tract infection on November 24 with a 7-day course of linezolid. Preliminary urine culture results indicate E. coli, while blood cultures have shown no growth after 24 hours. On today's evaluation, the patient is awake and resting, able to interact and answer questions, albeit with limited meaningful history. He denies any abdominal or flank pain, nausea, vomiting, fever, or chills. A Devlin catheter is in place and functioning. Urology was consulted regarding the widening of the symphysis pubis, suspecting possible osteomyelitis due to prior pelvic radiation. They recommended infectious disease consultation, and consideration of a pelvic MRI for further evaluation. Urology has no plan for acute genitourinary intervention at this time. Allergies Allergy/AdvReac Type Severity Reaction Status Date / Time Iodinated Contrast Media Allergy Severe LOVERSOL---CARDIAC Verified 11/12/24 20:[address] CONTRAST clindamycin Allergy Intermediate Rash Verified 11/12/24 20:27 cranberry Allergy Unknown Unknown Verified 11/12/24 20:27 caffeine Allergy Verified 11/13/24 15:45 chocolate flavor AdvReac Severe DIARRHEA/ Verified 11/12/24 20:27 Cannot take, interacts w/ medications. pembrolizumab [From [employer]] AdvReac Intermediate myocarditis Verified 11/12/24 20:27 Home Medications Medication Instructions Recorded Confirmed Type acetaminophen 325 mg tablet 650 mg (2 x 325 mg) PO Q4H PRN 06/08/24 12/19/24 Rx fever or pain #30 tabs ascorbic acid (vitamin C) 1,000 mg 1,000 mg PO DAILY #30 tabs 06/08/24 12/19/24 Rx tablet cholecalciferol (vitamin D3) 125 125 mcg PO DAILY #30 tabs 06/08/24 12/19/24 Rx mcg (5,000 unit) tablet (Vitamin D3) cyanocobalamin (vitamin B-12) 1,000 mcg PO DAILY #30 tabs 06/08/24 12/19/24 Rx 1,000 mcg tablet epinephrine 0.3 mg/0.3 mL 0.3 mg (0.3 mL) IM UD PRN 06/08/24 12/19/24 Rx injection, auto-injector Anaphylaxis #3 ea fluticasone fur. 200 mcg-umeclid 1 inh inhalation DAILY #1 ea 06/08/24 12/19/24 Rx 62.5 mcg-vilant 25 mcg inhalat.powder (Trelegy Ellipta) lidocaine 5 % topical patch 2 patch transdermal DAILY #20 ea 06/08/24 12/19/24 Rx memantine 10 mg tablet 10 mg PO BID #60 tabs 06/08/24 12/19/24 Rx multivitamin with minerals-folic 1 tab PO DAILY #30 tabs 06/08/24 12/19/24 Rx acid 200 mcg chewable tablet (Multivitamin Gummies) omeprazole 20 mg capsule,delayed 20 mg PO DAILY #30 caps 06/08/24 12/19/24 Rx release solifenacin 5 mg tablet 5 mg PO DAILY #30 tabs 06/08/24 12/19/24 Rx hydrocortisone 10 mg tablet 20 mg (2 x 10 mg) PO QAM #0 tabs 07/07/24 12/19/24 Rx (Cortef) mirabegron 25 mg tablet,extended 25 mg PO DAILY 07/28/24 12/19/24 History release 24 hr (Myrbetriq) albuterol sulfate 90 mcg/actuation 2 puff inhalation Q6H PRN 08/21/24 12/19/24 History aerosol inhaler Shortness Of Breath Or Wheezing fludrocortisone 0.1 mg tablet 0.1 mg PO DAILY 08/21/24 12/19/24 History ferrous sulfate 325 mg (65 mg 325 mg PO 3XWK 11/03/24 12/19/24 History iron) tablet,delayed release hydrocortisone 10 mg tablet 10 mg PO .DAILY @ 1500 11/03/24 12/19/24 History (Cortef) magnesium chloride 64 mg 64 mg PO DAILY 11/03/24 12/19/24 History (magnesium chloride) tablet,delayed release apixaban 2.5 mg tablet (Eliquis) 2.5 mg PO BID #60 tabs 11/16/24 12/19/24 Rx midodrine 10 mg tablet 10 mg PO BID 12/19/24 12/19/24 History Patient History Medical History (Updated 12/22/24 @ 10:08 by Zak Rubio DO) Fall from chair, initial encounter Ambulatory dysfunction VRE (vancomycin-resistant Enterococci) Cellulitis Cellulitis of right leg Acute UTI Aspiration pneumonia Chronic indwelling Devlin catheter Complicated urinary tract infection Acute kidney injury superimposed on chronic kidney disease Parainfluenza infection Influenza A (H1N1) Acute hypokalemia Delirium Chronic indwelling Devlin catheter Bladder cancer Weakness Recurrent UTI Anxiety Elevated blood pressure reading Complicated UTI (urinary tract infection) Myocarditis Primary bladder malignant neoplasm Coagulopathy Fracture of multiple teeth Sacral pressure sore Urethral stricture Ascending aorta dilation Mild- 4.4cm per 11/2022 ECHO Obesity Venous insufficiency (chronic) (peripheral) Radiation cystitis Kidney stones x1 episode. no surgery needed. Cardiac arrest hx r/t IV Contrast Dye "many years ago" Allergic rhinitis Contrast media allergy Hiatal hernia Surgical History S/P IVC filter S/P cataract extraction History of right cataract extraction History of colonoscopy H/O sinus surgery History of appendectomy S/P TURP (status post transurethral resection of prostate) Status post cystoscopy (11/07/13) Family History Father Prostate cancer Brother Prostate cancer Mother Thyroid cancer Cancer Other No family history of adverse response to anesthesia Social History Smoking Status: Never smoker Second Hand Exposure: No; Do You Dip or Chew Tobacco: No; Hx Alcohol Use: Yes Alcohol type: beer Alcohol Intake Frequency: Monthly or Less Hx Substance Use: No Preferred Language: Syriac Communication Ability: Effective Visual Impairment: Limited Hearing Ability: Normal Automatic I Threading Machine Feeder Required: No Beliefs That Will Affect Care: None marital status: Current Living Situation: Spouse Current Living Situation Comment: [facility] current occupational status: retired How many Children do You have: 0 Feels Safe at Home: Yes Safety Concerns: Feels Safe At This Time Diet: regular during the past year weight has: decreased > 10 lbs Seatbelt Use: always Do you think of yourself as: straight/heterosexual Gender Identity: Male Assistive Devices: Bedside Commode, Hospital Bed and Walker Review of Systems Constitutional: No Weight Change, No Fever, No Chills, No Night Sweats, No Fatigue, No Malaise ENT/Mouth: No Hearing Changes, No Ear Pain, No Nasal Congestion, No Sinus Pain, No Hoarseness, No sore throat, No Rhinorrhea, No Swallowing Difficulty Eyes: No Eye Pain, No Swelling, No Redness, No Foreign Body, No Discharge, No Vision Changes Cardiovascular: No Chest Pain, No SOB, No PND, No Dyspnea on Exertion, No Orthopnea, No Claudication, No Edema, No Palpitations Respiratory: No Cough, No Sputum, No Wheezing, No Smoke Exposure, No Dyspnea Gastrointestinal: No Nausea, No Vomiting, No Diarrhea, No Constipation, No Pain, No Heartburn, No Anorexia, No Dysphagia, No Hematochezia, No Melena, No Flatulence, No Jaundice Genitourinary: No Dysmenorrhea, No DUB, No Dyspareunia, No Dysuria, No Urinary Frequency, No Hematuria, No Urinary Incontinence, No Urgency, No Flank Pain, No Urinary Flow Changes, No Hesitancy Musculoskeletal: No Arthralgias, No Myalgias, No Joint Swelling, No Joint Stiffness, No Back Pain, No Neck Pain, No Injury History Skin: No Skin Lesions, No Pruritis, No Hair Changes, No Breast/Skin Changes, No Nipple Discharge Neuro: No Weakness, No Numbness, No Paresthesias, No Loss of Consciousness, No Syncope, No Dizziness, No Headache, No Coordination Changes, No Recent Falls Psych: No Anxiety/Panic, No Depression, No Insomnia, No Personality Changes, No Delusions, No Rumination, No SI/HI/AH/VH, No Social Issues, No Memory Changes, No Violence/Abuse Hx., No Eating Concerns Heme/Lymph: No Bruising, No Bleeding, No Transfusions History, No Lymphadenopathy Endocrine: No Polyuria, No Polydipsia, No Temperature Intolerance Physical Exam could not be done as it was a a video visit. Results & Data Vital Signs (Past 12 Hours) Vital Signs Temp Pulse Pulse Resp BP Pulse Ox O2 Del Method 12/21/24 16:37 36.5 C 79 18 130/64 100 Room Air 12/21/24 15:31 73 12/21/24 11:40 36.7 C 73 20 112/69 99 Room Air 12/21/24 07:41 36.8 C 65 20 124/69 98 Room Air 12/21/24 07:27 72 Laboratory Results 12/19/24 08:52 Urine Culture - Final Urine,Clean Catch Escherichia coli 12/19/24 10:31 Aerobic Blood Culture - Preliminary Blood No growth in Aerobic bottle after 48 hours. Anaerobic Blood Culture - Final 12/19/24 10:31 Aerobic Blood Culture - Preliminary Blood No growth in Aerobic bottle after 48 hours. Anaerobic Blood Culture - Final 12/21/24 07:54 WBC 5.02 RBC 3.50 L Hgb 10.2 L Hct 31.0 L MCV 88.6 MCH 29.1 MCHC 32.9 RDW Std Deviation 50.8 H RDW Coeff of Robert 15.8 H Plt Count 226 MPV 9.0 L Diagnostic Findings Pelvis MRI 12/21/24 10:50 MR pelvis wo con CLINICAL HISTORY: pubic osteomyelitis vs. metastatic disease COMPARISON STUDY: CT scan of 12/19/2024 FINDINGS: There is motion artifact. Devlin catheter is present and the urinary bladder is decompressed. There is urinary bladder wall thickening and adjacent inflammation consistent with bladder infection. There is increased T2 osseous signal on either side of the pubic symphysis. This combined with the cortical irregularity seen on the CT scan is consistent with osteomyelitis at the pubic symphysis. No adjacent soft tissue abscess seen. No other evidence of osteomyelitis seen. No pelvic fracture seen. Stable small bone cyst lateral left femoral head. Stable degenerative changes at the hips and visualized lower lumbar spine. 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 ACT 112: Negative or not required by law. Electronically signed by: Hawk Hensley M.D. 12/21/2024 12:55 PM Medications Administered Home Medications Medication Instructions Recorded Confirmed Last Taken acetaminophen 325 mg tablet 650 mg (2 x 325 mg) PO Q4H PRN 06/08/24 12/19/24 Unknown fever or pain #30 tabs ascorbic acid (vitamin C) 1,000 mg 1,000 mg PO DAILY #30 tabs 06/08/24 12/19/24 12/18/24 tablet cholecalciferol (vitamin D3) 125 125 mcg PO DAILY #30 tabs 06/08/24 12/19/24 12/18/24 mcg (5,000 unit) tablet (Vitamin D3) cyanocobalamin (vitamin B-12) 1,000 mcg PO DAILY #30 tabs 06/08/24 12/19/24 12/18/24 1,000 mcg tablet epinephrine 0.3 mg/0.3 mL 0.3 mg (0.3 mL) IM UD PRN 06/08/24 12/19/24 Unknown injection, auto-injector Anaphylaxis #3 ea fluticasone fur. 200 mcg-umeclid 1 inh inhalation DAILY #1 ea 06/08/24 12/19/24 12/18/24 62.5 mcg-vilant 25 mcg inhalat.powder (Trelegy Ellipta) lidocaine 5 % topical patch 2 patch transdermal DAILY #20 ea 06/08/24 12/19/24 Unknown memantine 10 mg tablet 10 mg PO BID #60 tabs 06/08/24 12/19/24 12/19/24 multivitamin with minerals-folic 1 tab PO DAILY #30 tabs 06/08/24 12/19/24 12/18/24 acid 200 mcg chewable tablet (Multivitamin Gummies) omeprazole 20 mg capsule,delayed 20 mg PO DAILY #30 caps 06/08/24 12/19/24 12/18/24 release solifenacin 5 mg tablet 5 mg PO DAILY #30 tabs 06/08/24 12/19/24 12/18/24 hydrocortisone 10 mg tablet 20 mg (2 x 10 mg) PO QAM #0 tabs 07/07/24 12/19/24 12/19/24 (Cortef) mirabegron 25 mg tablet,extended 25 mg PO DAILY 07/28/24 12/19/24 12/18/24 release 24 hr (Myrbetriq) albuterol sulfate 90 mcg/actuation 2 puff inhalation Q6H PRN 08/21/24 12/19/24 Unknown aerosol inhaler Shortness Of Breath Or Wheezing fludrocortisone 0.1 mg tablet 0.1 mg PO DAILY 08/21/24 12/19/24 12/18/24 ferrous sulfate 325 mg (65 mg 325 mg PO 3XWK 11/03/24 12/19/24 12/18/24 iron) tablet,delayed release hydrocortisone 10 mg tablet 10 mg PO .DAILY @ 1500 11/03/24 12/19/24 12/18/24 (Cortef) magnesium chloride 64 mg 64 mg PO DAILY 11/03/24 12/19/24 12/18/24 (magnesium chloride) tablet,delayed release apixaban 2.5 mg tablet (Eliquis) 2.5 mg PO BID #60 tabs 11/16/24 12/19/24 12/19/24 midodrine 10 mg tablet 10 mg PO BID 12/19/24 12/19/24 Unknown Active Medications Generic Name Dose Route Start Last Admin Trade Name Freq PRN Reason Stop Dose Admin Acetaminophen 650 mg 12/19/24 17:00 12/19/24 21:05 Acetaminophen 325 Mg Tab PO 01/18/25 16:59 650 mg Q4H PRN Administration pain/fever Apixaban 2.5 mg 12/19/24 21:00 12/21/24 10:13 Apixaban 2.5 Mg Tab PO 01/18/25 20:59 2.5 mg BID TAWNY Administration Ascorbic Acid 1,000 mg 12/20/24 09:00 12/21/24 10:13 Ascorbic Acid 500 Mg Tab PO 01/19/25 08:59 1,000 mg DAILY TAWNY Administration Cyanocobalamin 1,000 mcg 12/20/24 09:00 12/21/24 10:14 Cyanocobalamin (B-12) 500 Mcg Tablet PO 01/19/25 08:59 1,000 mcg DAILY TAWNY Administration Fludrocortisone Acetate 0.1 mg 12/20/24 09:00 12/21/24 10:14 Fludrocortisone Acetate 0.1 Mg Tab PO 01/19/25 08:59 0.1 mg DAILY TAWNY Administration Fluticasone/Vilanterol 1 puffs 12/20/24 09:00 12/21/24 10:14 Fluticasone/Vilanterol 200/25mcg 14 Puffs/Inhaler INH 01/19/25 08:59 1 puffs DAILY TAWNY Administration Folic Acid 1 mg 12/20/24 13:30 12/21/24 10:15 Folic Acid 1 Mg Tab PO 01/19/25 13:29 1 mg QAM TAWNY Administration Hydrocortisone 10 mg 12/19/24 17:00 12/21/24 15:02 Hydrocortisone 10 Mg Tab PO 01/18/25 16:59 10 mg DAILY@1500 TAWNY Administration Hydrocortisone 20 mg 12/20/24 09:00 12/21/24 10:16 Hydrocortisone 10 Mg Tab PO 01/19/25 08:59 20 mg QAM TAWNY Administration Memantine 10 mg 12/19/24 21:00 12/21/24 10:16 Memantine Hcl 10 Mg Tab PO 01/18/25 20:59 10 mg BID TAWNY Administration Midodrine 2.5 mg 12/20/24 17:00 12/21/24 16:37 Midodrine Hcl 2.5 Mg Tab PO 01/19/25 16:59 2.5 mg TID@0800,1200,1700 TAWNY Administration Miscellaneous 1 each 12/19/24 21:00 12/20/24 20:46 Remove Lidoderm Patch N/A 01/18/25 20:59 1 each DAILY@2100 TAWNY Administration Pantoprazole Sodium 40 mg 12/20/24 09:00 12/21/24 10:16 Pantoprazole 40 Mg Tab PO 01/19/25 08:59 40 mg DAILY TAWNY Administration Thiamine HCl 100 mg 12/20/24 13:30 12/21/24 10:16 Thiamine Hcl 100 Mg Tab PO 01/19/25 13:29 100 mg QAM TAWNY Administration Vibegron 75 mg 12/20/24 09:00 12/21/24 10:17 Vibegron 75 Mg Tab PO 01/19/25 08:59 75 mg DAILY TAWNY Administration Vitamin D 125 mcg 12/20/24 09:00 12/21/24 10:13 Cholecalciferol 125 Mcg (5,000 Units) Tab PO 01/19/25 08:59 125 mcg DAILY TAWNY Administration
--- NOTE | 2024-12-22 10:09 | Cardiology Progress Note ---
Date of Service December 22, 2024 Assessment & Plan (1) Fall: (2) Orthostatic hypotension: (3) Adrenal insufficiency: (4) Chronic osteomyelitis of symphysis pubis: (5) Severe aortic stenosis: Plan: Patient with complex issues. Although he could certainly be symptomatic from the standpoint of severe aortic stenosis with shortness of breath with exertion and syncope, I have concerns that his presentation is not related to the aortic stenosis alone. He has had progressive debilitation over the last year. 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 Recent VRE nd joanna albicans UTI , and now has E. coli on urine culture. Findings consistent with osteomyelitis at the pubic symphysis on MRI 12/21/24. With ongoing concerns of infection, pursuit of aortic valve intervention is not feasible due to concerns of infecting the prosthesis. Repeat echocardiogram 12/20/24 revealed stable small circumferential pericardial effusion, unchanged compared to previous echocardiogram performed as an outpatient last month. No evidence of tamponade. Continue midodrine. Zak Rubio DO Cardiology Admission and Anticipated Discharge Date Admission Date: December 19, 2024 Subjective Patient seen in cardiology follow up. No acute complaints. Mental status stable. Appears to be close to baseline from that perspective. Telemetry reveals SR in the 60s. Physical Exam Physical Exam: Temp Pulse Resp BP Pulse Ox O2 Del Method O2 Flow Rate 36.6 C 59 L 18 164/87 H 99 Room Air 2 12/22/24 07:30 12/22/24 07:30 12/22/24 07:30 12/22/24 07:30 12/22/24 07:30 12/22/24 07:30 12/20/24 22:31 General: Chronically ill in appearance Eyes: conjunctiva are pink and non-injected, sclera clear Neck: normal jugular venous pulse, no hepatojugular reflux Chest: normal shape and normal respiratory effort Lungs: clear to auscultation and percussion Cardiac Exam: - regular heart sounds,1/6 systolic murmur Abdomen: abdomen soft, non-tender, no abnormal masses and no hepatosplenomegaly Musculoskeletal: no gait disturbance, no weakness Extremities: no edema and no cyanosis Neuro:awake, conversant, follows commands, no focal motor deficits : Devlin catheter in place draining clear yellow urine Results & Data Vital Signs (Past 12 Hours) Vital Signs Temp Pulse Pulse Resp BP Pulse Ox O2 Del Method 12/22/24 07:30 36.6 C 59 L 18 164/87 H 99 Room Air 12/21/24 23:20 36.6 C 68 20 138/77 98 Room Air 12/21/24 22:10 73 Diagnostic Findings MRI pelvis, 12/21/24: Findings consistent with osteomyelitis at the pubic symphysis. (1) Fall Encounter type: initial encounter Qualified Code(s): W19.XXXA - Unspecified fall, initial encounter
[2024-12-22 10:48] LABS: Base Excess VBG -0.8 mEq/L; HCO3 VBG 24 mmol/L; Oxygen Saturation VBG < 60.0 %; PCO2 VBG 41 mmHg (38-50); PO2 VBG 23 mmHg; pH VBG 7.38 (7.36-7.41)
[2024-12-22 10:55] LABS: Hematocrit (blood only) 34.7 % (42.0-52.0); Hemoglobin 11.3 g/dl (14.0-18.0); Mean Corpuscular Hemoglobin 29.1 pg (25.0-34.0); Mean Corpuscular Hgb Conc 32.6 g/dL (32.0-36.0); Mean Corpuscular Volume 89.4 fL (80.0-100.0); Mean Platelet Volume 9.3 fL (9.4-12.4); Platelet Count 292 K/uL (130-400); RDW Coefficient of Variation 15.8 % (11.5-14.5); Red Blood Count 3.88 M/uL (4.70-6.10); White Blood Count 5.23 K/ul (4.8-10.8)
[2024-12-22 11:11] LABS: BUN Creatinine Ratio 9.7 (10-20); Calcium 8.6 mg/dl (8.6-10.3); Creatinine Clr Calc Pharmacy 57.1 ml/min; Potassium 3.1 mmol/L (3.5-5.1)
--- NOTE | 2024-12-22 12:23 | Hospitalist Progress Note ---
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 Fall -likely 2/2 ambulatory dysfunction, orthostatic hypotension, severe aortic stenosis -Pelvis x-ray negative for fracture -CT abdomen revealed compression fracture of L2-L3 - this is unchanged from previous CT on 12/01 at [facility] Plan: -PT/OT consults -appreciate cardiology consult, consideration for syncope etiology Confusion -UA is strongly suggestive of UTI in setting of confusion, however patient denies traditional symptoms -in setting of known dementia -likely multifactorial, hyperactive delirium, infection, dementia Plan: -stop all abx per ID as not showing active signs of infection -appreciate ID consultation -stop anticholinergics if possible -f/u culture results -continue thiamine, folic acid Pubic Osteomyelitis -likely in setting of radiation therapy -concern that this could be acutely infected Plan: -ID consult, appreciate recs -per my discussion personally with ID, recommend bone biopsy to guide treatment, bone biopsy ordered Complicated E. coli UTI Chronic tatum with recurrent UTIs History of VRE UTI -UA +nitrate, leuk esterase, WBC, bacteria, yeast -continue ceftriaxone Severe Aortic stenosis -Echo on 12/08/2024 showed severe aortic stenosis -Has not seen Cardiology since June 2024 -Patient reporting episodes of passing out and worsening SOB on exertion -Consult Cardiology and appreciate recs Orthostatic hypotension -Continue florinef Anemia -Chronic, stable -Continue ferrous sulfate MWF Adrenal insufficiency -Continue hydrocortisone COPD -Chronic, stable -Continue Trelegy, PRN albuterol CKD III Chronic, stable I spent a total of 50 minutes in direct patient care, including [id number] time with the patient and/or family, reviewing medical records, ordering and reviewing diagnostic tests, and coordinating care with other healthcare providers. This time includes: history taking, physical examination, medical decision making, counseling, ECG interpretation, imaging interpretation, lab interpretation, orders, and education, excluding time spent in the performance of separately billed services. Admission and Anticipated Discharge Date Admission Date: December 19, 2024 Subjective Patient seen and examined at bedside. Patient doing well today, appears a bit more alert today. Discussed awaiting ID input at this time, preliminary recs are to pursue bone biopsy to guide treatment. Review of Systems Review of Systems: CONSTITUTIONAL: Patient denies fevers, chills, sweats and weight changes. EYES: Patient denies any visual symptoms. EARS, NOSE, AND THROAT: No difficulties with hearing. No symptoms of rhinitis or sore throat. CARDIOVASCULAR: Patient denies chest pains, palpitations, orthopnea and paroxysmal nocturnal dyspnea. RESPIRATORY: No dyspnea on exertion, no wheezing or cough. GI: No nausea, vomiting, diarrhea, constipation, abdominal pain, hematochezia or melena. : No urinary hesitancy or dribbling. No nocturia or urinary frequency. No abnormal urethral discharge. MUSCULOSKELETAL: No myalgias or arthralgias. NEUROLOGIC: No chronic headaches, no seizures. Patient denies numbness, tingling or weakness. PSYCHIATRIC: Patient denies problems with mood disturbance. No problems with anxiety. ENDOCRINE: No excessive urination or excessive thirst. DERMATOLOGIC: Patient denies any rashes or skin changes. Physical Exam Physical Exam: Gen: A&O 2 NAD HEENT: NCAT, EOMI, not icteric. External ears normal. No rhinorrhea. Moist mucous membranes. Neck: Supple, full range of motion, no observable masses, No meningeal sign. Lungs: No Respiratory distress. CV: RRR, no edema. Abdomen: Soft, nondistended, No rebound tenderness. MSK: No joint swelling, no redness. Skin: No rashes, petechiae, lesions. Normal color per patient. Neuro: Normal Gait, Grossly intact. Psych: confused, improved from prior Results & Data Results & Data Vital Signs (Past 12 Hours) Vital Signs Temp Pulse Resp BP Pulse Ox O2 Del Method 12/22/24 11:20 36.3 C L 77 18 109/71 100 Room Air 12/22/24 07:30 36.6 C 59 L 18 164/87 H 99 Room Air Laboratory Results -personally reviewed, potassium of 3.1 noted and replenished, creatinine at baseline, no leukocytosis noted Medications Administered Acetaminophen (Acetaminophen 325 Mg Tab) 650 mg PO Q4H PRN PRN Reason: pain/fever Stop: 01/18/25 16:59 Last Admin: 12/19/24 21:05 Dose: 650 mg Documented By: CHRIS Apixaban (Apixaban 2.5 Mg Tab) 2.5 mg PO BID TAWNY Stop: 01/18/25 20:59 Last Admin: 12/22/24 09:18 Dose: 2.5 mg Documented By: Admin: 12/21/24 20:43 Dose: 2.5 mg Documented By: Admin: 12/21/24 10:13 Dose: 2.5 mg Documented By: Admin: 12/20/24 20:46 Dose: 2.5 mg Documented By: Admin: 12/20/24 08:27 Dose: 2.5 mg Documented By: Admin: 12/19/24 21:03 Dose: 2.5 mg Documented By: CHRIS Ascorbic Acid (Ascorbic Acid 500 Mg Tab) 1,000 mg PO DAILY TAWNY Stop: 01/19/25 08:59 Last Admin: 12/22/24 09:17 Dose: 1,000 mg Documented By: Admin: 12/21/24 10:13 Dose: 1,000 mg Documented By: Admin: 12/20/24 08:27 Dose: 1,000 mg Documented By: TESS Cyanocobalamin (Cyanocobalamin (B-12) 500 Mcg Tablet) 1,000 mcg PO DAILY TAWNY Stop: 01/19/25 08:59 Last Admin: 12/22/24 09:18 Dose: 1,000 mcg Documented By: Admin: 12/21/24 10:14 Dose: 1,000 mcg Documented By: Admin: 12/20/24 08:27 Dose: 1,000 mcg Documented By: TESS Fludrocortisone Acetate (Fludrocortisone Acetate 0.1 Mg Tab) 0.1 mg PO DAILY TAWNY Stop: 01/19/25 08:59 Last Admin: 12/22/24 09:18 Dose: 0.1 mg Documented By: Admin: 12/21/24 10:14 Dose: 0.1 mg Documented By: Admin: 12/20/24 08:28 Dose: 0.1 mg Documented By: TESS Fluticasone/Vilanterol (Fluticasone/Vilanterol 200/25mcg 14 Puffs/Inhaler) 1 puffs INH DAILY TAWNY Stop: 01/19/25 08:59 Last Admin: 12/22/24 09:19 Dose: 1 puffs Documented By: Admin: 12/21/24 10:14 Dose: 1 puffs Documented By: Admin: 12/20/24 08:28 Dose: 1 puffs Documented By: TESS Folic Acid (Folic Acid 1 Mg Tab) 1 mg PO QAM TAWNY Stop: 01/19/25 13:29 Last Admin: 12/22/24 09:17 Dose: 1 mg Documented By: Admin: 12/21/24 10:15 Dose: 1 mg Documented By: Admin: 12/20/24 14:58 Dose: 1 mg Documented By: TESS Hydrocortisone (Hydrocortisone 10 Mg Tab) 10 mg PO DAILY@1500 TAWNY Stop: 01/18/25 16:59 Last Admin: 12/21/24 15:02 Dose: 10 mg Documented By: RRBethany Admin: 12/20/24 14:58 Dose: 10 mg Documented By: Admin: 12/19/24 17:52 Dose: 10 mg Documented By: GLENN Hydrocortisone (Hydrocortisone 10 Mg Tab) 20 mg PO QAM TAWNY Stop: 01/19/25 08:59 Last Admin: 12/22/24 09:17 Dose: 20 mg Documented By: Admin: 12/21/24 10:16 Dose: 20 mg Documented By: Admin: 12/20/24 08:28 Dose: 20 mg Documented By: TESS Memantine (Memantine Hcl 10 Mg Tab) 10 mg PO BID TAWNY Stop: 01/18/25 20:59 Last Admin: 12/22/24 09:17 Dose: 10 mg Documented By: Admin: 12/21/24 20:43 Dose: 10 mg Documented By: Admin: 12/21/24 10:16 Dose: 10 mg Documented By: Admin: 12/20/24 20:46 Dose: 10 mg Documented By: Admin: 12/20/24 08:29 Dose: 10 mg Documented By: Admin: 12/19/24 21:04 Dose: 10 mg Documented By: CHRIS Midodrine (Midodrine Hcl 2.5 Mg Tab) 2.5 mg PO TID@0800,1200,1700 TAWNY Stop: 01/19/25 16:59 Last Admin: 12/22/24 09:16 Dose: 2.5 mg Documented By: Admin: 12/21/24 16:37 Dose: 2.5 mg Documented By: Admin: 12/21/24 13:25 Dose: 2.5 mg Documented By: Admin: 12/21/24 10:12 Dose: 2.5 mg Documented By: Admin: 12/20/24 17:08 Dose: 2.5 mg Documented By: TESS Miscellaneous (Remove Lidoderm Patch) 1 each N/A DAILY@2100 TAWNY Stop: 01/18/25 20:59 Last Admin: 12/21/24 20:43 Dose: 1 each Documented By: Admin: 12/20/24 20:46 Dose: 1 each Documented By: Admin: 12/19/24 21:04 Dose: 1 each Documented By: CHRIS Pantoprazole Sodium (Pantoprazole 40 Mg Tab) 40 mg PO DAILY TAWNY Stop: 01/19/25 08:59 Last Admin: 12/22/24 09:18 Dose: 40 mg Documented By: Admin: 12/21/24 10:16 Dose: 40 mg Documented By: Admin: 12/20/24 08:29 Dose: 40 mg Documented By: TESS Thiamine HCl (Thiamine Hcl 100 Mg Tab) 100 mg PO QAM TAWNY Stop: 01/19/25 13:29 Last Admin: 12/22/24 09:18 Dose: 100 mg Documented By: Admin: 12/21/24 10:16 Dose: 100 mg Documented By: Admin: 12/20/24 14:58 Dose: 100 mg Documented By: TESS Vibegron (Vibegron 75 Mg Tab) 75 mg PO DAILY TAWNY Stop: 01/19/25 08:59 Last Admin: 12/22/24 09:19 Dose: 75 mg Documented By: Admin: 12/21/24 10:17 Dose: 75 mg Documented By: Admin: 12/20/24 08:29 Dose: 75 mg Documented By: DAGMARR Vitamin D (Cholecalciferol 125 Mcg (5,000 Units) Tab) 125 mcg PO DAILY TAWNY Stop: 01/19/25 08:59 Last Admin: 12/22/24 09:18 Dose: 125 mcg Documented By: Admin: 12/21/24 10:13 Dose: 125 mcg Documented By: Admin: 12/20/24 08:27 Dose: 125 mcg Documented By: TESS (1) Fall Encounter type: initial encounter Qualified Code(s): W19.XXXA - Unspecified fall, initial encounter (5) Aortic stenosis Cardiac valve disease etiology: nonrheumatic Qualified Code(s): I35.0 - Nonrheumatic aortic (valve) stenosis (7) Anemia Anemia type: unspecified type Qualified Code(s): D64.9 - Anemia, unspecified (9) Dementia Dementia type: unspecified type Dementia severity: unspecified severity Dementia behavioral or psychological symptom: unspecified whether behavioral, psychotic, or mood disturbance or anxiety Qualified Code(s): F03.90 - Unspecified dementia, unspecified severity, without behavioral disturbance, psychotic disturbance, mood disturbance, and anxiety (12) Stage 3 chronic kidney disease Chronic kidney disease stage 3 subtype: unspecified whether 3a or 3b Qualified Code(s): N18.30 - Chronic kidney disease, stage 3 unspecified
[2024-12-22] MEDS: POTASSIUM CHLORIDE CRTAB 20 MEQ TABCR PO STA (12:38)
[2024-12-22] MEDS: busPIRone 5 MG TAB PO SCH (20:35)
[2024-12-23 07:46] LABS: Hematocrit (blood only) 31.5 % (42.0-52.0); Hemoglobin 10.2 g/dl (14.0-18.0); Mean Corpuscular Hemoglobin 28.5 pg (25.0-34.0); Mean Corpuscular Hgb Conc 32.4 g/dL (32.0-36.0); Mean Platelet Volume 9.1 fL (9.4-12.4); Platelet Count 268 K/uL (130-400); RDW Coefficient of Variation 15.7 % (11.5-14.5); RDW Standard Deviation 50.1 fL (36.4-46.3); Red Blood Count 3.58 M/uL (4.70-6.10); White Blood Count 4.94 K/ul (4.8-10.8)
[2024-12-23 08:05] LABS: BUN Creatinine Ratio 10.1 (10-20); Calcium 8.5 mg/dl (8.6-10.3); Creatinine Clr Calc Pharmacy 59.5 ml/min; Potassium 3.3 mmol/L (3.5-5.1)
--- NOTE | 2024-12-23 12:24 | Hospitalist Progress Note ---
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 Fall -likely 2/2 ambulatory dysfunction, orthostatic hypotension, severe aortic stenosis -Pelvis x-ray negative for fracture -CT abdomen revealed compression fracture of L2-L3 - this is unchanged from previous CT on 12/01 at [facility] Plan: -PT/OT consults -appreciate cardiology consult, consideration for syncope etiology Confusion Moderate Dementia -UA is strongly suggestive of UTI in setting of confusion, however patient denies traditional symptoms -in setting of known dementia -likely multifactorial, hyperactive delirium, infection, dementia Plan: -stop all abx per ID as not showing active signs of infection -appreciate ID consultation -stop anticholinergics if possible -f/u culture results -continue thiamine, folic acid Pubic Osteomyelitis -likely in setting of radiation therapy -concern that this could be acutely infected Plan: -ID consult, appreciate recs -per my discussion personally with ID, recommend bone biopsy to guide treatment, bone biopsy ordered, scheduled for Wednesday -NPO after midnight Wednesday night, preop labs will be ordered Complicated E. coli UTI Chronic tatum with recurrent UTIs History of VRE UTI -UA +nitrate, leuk esterase, WBC, bacteria, yeast -continue ceftriaxone Severe Aortic stenosis -Echo on 12/08/2024 showed severe aortic stenosis -Has not seen Cardiology since June 2024 -Patient reporting episodes of passing out and worsening SOB on exertion -Consult Cardiology and appreciate recs Orthostatic hypotension -Continue florinef Anemia -Chronic, stable -Continue ferrous sulfate MWF Adrenal insufficiency -Continue hydrocortisone COPD -Chronic, stable -Continue Trelegy, PRN albuterol CKD III Chronic, stable I spent a total of 45 minutes in direct patient care, including [id number] time with the patient and/or family, reviewing medical records, ordering and reviewing diagnostic tests, and coordinating care with other healthcare providers. This time includes: history taking, physical examination, medical decision making, counseling, ECG interpretation, imaging interpretation, lab interpretation, orders, and education, excluding time spent in the performance of separately billed services. Admission and Anticipated Discharge Date Admission Date: December 19, 2024 Subjective Patient seen and examined at bedside. Patient doing well today, no concerns at this time. Review of Systems Review of Systems: CONSTITUTIONAL: Patient denies fevers, chills, sweats and weight changes. EYES: Patient denies any visual symptoms. EARS, NOSE, AND THROAT: No difficulties with hearing. No symptoms of rhinitis or sore throat. CARDIOVASCULAR: Patient denies chest pains, palpitations, orthopnea and paroxysmal nocturnal dyspnea. RESPIRATORY: No dyspnea on exertion, no wheezing or cough. GI: No nausea, vomiting, diarrhea, constipation, abdominal pain, hematochezia or melena. : No urinary hesitancy or dribbling. No nocturia or urinary frequency. No abnormal urethral discharge. MUSCULOSKELETAL: No myalgias or arthralgias. NEUROLOGIC: No chronic headaches, no seizures. Patient denies numbness, tingling or weakness. PSYCHIATRIC: Patient denies problems with mood disturbance. No problems with anxiety. ENDOCRINE: No excessive urination or excessive thirst. DERMATOLOGIC: Patient denies any rashes or skin changes. Physical Exam Physical Exam: Gen: A&O 2 NAD HEENT: NCAT, EOMI, not icteric. External ears normal. No rhinorrhea. Moist mucous membranes. Neck: Supple, full range of motion, no observable masses, No meningeal sign. Lungs: No Respiratory distress. CV: RRR, no edema. Abdomen: Soft, nondistended, No rebound tenderness. MSK: No joint swelling, no redness. Skin: No rashes, petechiae, lesions. Normal color per patient. Neuro: Normal Gait, Grossly intact. Psych: confused, improved from prior Results & Data Results & Data Vital Signs (Past 12 Hours) Vital Signs Temp Pulse Pulse Resp BP Pulse Ox O2 Del Method 12/23/24 11:47 36.6 C 66 18 138/73 100 Room Air 12/23/24 07:46 Room Air 12/23/24 07:07 36.4 C L 68 20 152/81 H 98 Room Air 12/23/24 05:40 69 12/23/24 04:04 36.6 C 67 20 143/78 H 99 Room Air Laboratory Results -personally reviewed, potassium of 3.3 replenished, Hgb and creatinine stable Medications Administered Acetaminophen (Acetaminophen 325 Mg Tab) 650 mg PO Q4H PRN PRN Reason: pain/fever Stop: 01/18/25 16:59 Last Admin: 12/22/24 14:44 Dose: 650 mg Documented By: Admin: 12/19/24 21:05 Dose: 650 mg Documented By: CHRIS Ascorbic Acid (Ascorbic Acid 500 Mg Tab) 1,000 mg PO DAILY TAWNY Stop: 01/19/25 08:59 Last Admin: 12/23/24 08:34 Dose: 1,000 mg Documented By: Admin: 12/22/24 09:17 Dose: 1,000 mg Documented By: Admin: 12/21/24 10:13 Dose: 1,000 mg Documented By: Admin: 12/20/24 08:27 Dose: 1,000 mg Documented By: DAGMARR Buspirone HCl (Buspirone 5 Mg Tab) 10 mg PO TID [facility] Stop: 01/21/25 20:59 Last Admin: 12/23/24 08:33 Dose: 10 mg Documented By: Admin: 12/22/24 20:35 Dose: 10 mg Documented By: KERI Cyanocobalamin (Cyanocobalamin (B-12) 500 Mcg Tablet) 1,000 mcg PO DAILY TAWNY Stop: 01/19/25 08:59 Last Admin: 12/23/24 08:34 Dose: 1,000 mcg Documented By: Admin: 12/22/24 09:18 Dose: 1,000 mcg Documented By: Admin: 12/21/24 10:14 Dose: 1,000 mcg Documented By: Admin: 12/20/24 08:27 Dose: 1,000 mcg Documented By: RRR Fludrocortisone Acetate (Fludrocortisone Acetate 0.1 Mg Tab) 0.1 mg PO DAILY TAWNY Stop: 01/19/25 08:59 Last Admin: 12/23/24 08:35 Dose: 0.1 mg Documented By: Admin: 12/22/24 09:18 Dose: 0.1 mg Documented By: Admin: 12/21/24 10:14 Dose: 0.1 mg Documented By: Admin: 12/20/24 08:28 Dose: 0.1 mg Documented By: TESS Fluticasone/Vilanterol (Fluticasone/Vilanterol 200/25mcg 14 Puffs/Inhaler) 1 puffs INH DAILY TAWNY Stop: 01/19/25 08:59 Last Admin: 12/23/24 08:32 Dose: 1 puffs Documented By: Admin: 12/22/24 09:19 Dose: 1 puffs Documented By: Admin: 12/21/24 10:14 Dose: 1 puffs Documented By: Admin: 12/20/24 08:28 Dose: 1 puffs Documented By: TESS Folic Acid (Folic Acid 1 Mg Tab) 1 mg PO QAM [facility] Stop: 01/19/25 13:29 Last Admin: 12/23/24 08:34 Dose: 1 mg Documented By: Admin: 12/22/24 09:17 Dose: 1 mg Documented By: Admin: 12/21/24 10:15 Dose: 1 mg Documented By: Admin: 12/20/24 14:58 Dose: 1 mg Documented By: TESS Hydrocortisone (Hydrocortisone 10 Mg Tab) 10 mg PO DAILY@1500 [facility] Stop: 01/18/25 16:59 Last Admin: 12/22/24 14:45 Dose: 10 mg Documented By: Admin: 12/21/24 15:02 Dose: 10 mg Documented By: Admin: 12/20/24 14:58 Dose: 10 mg Documented By: Admin: 12/19/24 17:52 Dose: 10 mg Documented By: GLENN Hydrocortisone (Hydrocortisone 10 Mg Tab) 20 mg PO QAM [facility] Stop: 01/19/25 08:59 Last Admin: 12/23/24 08:35 Dose: 20 mg Documented By: Admin: 12/22/24 09:17 Dose: 20 mg Documented By: Admin: 12/21/24 10:16 Dose: 20 mg Documented By: Admin: 12/20/24 08:28 Dose: 20 mg Documented By: TESS Memantine (Memantine Hcl 10 Mg Tab) 10 mg PO BID TAWNY Stop: 01/18/25 20:59 Last Admin: 12/23/24 08:33 Dose: 10 mg Documented By: Admin: 12/22/24 20:35 Dose: 10 mg Documented By: Admin: 12/22/24 09:17 Dose: 10 mg Documented By: Admin: 12/21/24 20:43 Dose: 10 mg Documented By: Admin: 12/21/24 10:16 Dose: 10 mg Documented By: Admin: 12/20/24 20:46 Dose: 10 mg Documented By: Admin: 12/20/24 08:29 Dose: 10 mg Documented By: Admin: 12/19/24 21:04 Dose: 10 mg Documented By: CHRIS Midodrine (Midodrine Hcl 2.5 Mg Tab) 2.5 mg PO TID@0800,1200,1700 TAWNY Stop: 01/19/25 16:59 Last Admin: 12/23/24 08:33 Dose: 2.5 mg Documented By: Admin: 12/22/24 17:40 Dose: 2.5 mg Documented By: Admin: 12/22/24 12:34 Dose: 2.5 mg Documented By: Admin: 12/22/24 09:16 Dose: 2.5 mg Documented By: Admin: 12/21/24 16:37 Dose: 2.5 mg Documented By: Admin: 12/21/24 13:25 Dose: 2.5 mg Documented By: Admin: 12/21/24 10:12 Dose: 2.5 mg Documented By: Admin: 12/20/24 17:08 Dose: 2.5 mg Documented By: TESS Miscellaneous (Remove Lidoderm Patch) 1 each N/A DAILY@2100 [facility] Stop: 01/18/25 20:59 Last Admin: 12/22/24 20:36 Dose: Not Given Documented By: Admin: 12/21/24 20:43 Dose: 1 each Documented By: Admin: 12/20/24 20:46 Dose: 1 each Documented By: Admin: 12/19/24 21:04 Dose: 1 each Documented By: CHRIS Pantoprazole Sodium (Pantoprazole 40 Mg Tab) 40 mg PO DAILY TAWNY Stop: 01/19/25 08:59 Last Admin: 12/23/24 08:32 Dose: 40 mg Documented By: Admin: 12/22/24 09:18 Dose: 40 mg Documented By: Admin: 12/21/24 10:16 Dose: 40 mg Documented By: RRBethany Admin: 12/20/24 08:29 Dose: 40 mg Documented By: TESS Thiamine HCl (Thiamine Hcl 100 Mg Tab) 100 mg PO QAM TAWNY Stop: 01/19/25 13:29 Last Admin: 12/23/24 08:32 Dose: 100 mg Documented By: Admin: 12/22/24 09:18 Dose: 100 mg Documented By: Admin: 12/21/24 10:16 Dose: 100 mg Documented By: Admin: 12/20/24 14:58 Dose: 100 mg Documented By: TESS Vibegron (Vibegron 75 Mg Tab) 75 mg PO DAILY TAWNY Stop: 01/19/25 08:59 Last Admin: 12/23/24 08:35 Dose: 75 mg Documented By: Admin: 12/22/24 09:19 Dose: 75 mg Documented By: Admin: 12/21/24 10:17 Dose: 75 mg Documented By: Admin: 12/20/24 08:29 Dose: 75 mg Documented By: TESS Vitamin D (Cholecalciferol 125 Mcg (5,000 Units) Tab) 125 mcg PO DAILY TAWNY Stop: 01/19/25 08:59 Last Admin: 12/23/24 08:33 Dose: 125 mcg Documented By: Admin: 12/22/24 09:18 Dose: 125 mcg Documented By: Admin: 12/21/24 10:13 Dose: 125 mcg Documented By: Admin: 12/20/24 08:27 Dose: 125 mcg Documented By: TESS (1) Fall Encounter type: initial encounter Qualified Code(s): W19.XXXA - Unspecified fall, initial encounter (5) Aortic stenosis Cardiac valve disease etiology: nonrheumatic Qualified Code(s): I35.0 - Nonrheumatic aortic (valve) stenosis (7) Anemia Anemia type: unspecified type Qualified Code(s): D64.9 - Anemia, unspecified (9) Dementia Dementia type: unspecified type Dementia severity: unspecified severity Dementia behavioral or psychological symptom: unspecified whether behavioral, psychotic, or mood disturbance or anxiety Qualified Code(s): F03.90 - Unspecified dementia, unspecified severity, without behavioral disturbance, psychotic disturbance, mood disturbance, and anxiety (12) Stage 3 chronic kidney disease Chronic kidney disease stage 3 subtype: unspecified whether 3a or 3b Qualified Code(s): N18.30 - Chronic kidney disease, stage 3 unspecified
[2024-12-23] MEDS: POTASSIUM CHLORIDE CRTAB 20 MEQ TABCR PO STA (12:39)
--- NOTE | 2024-12-23 12:57 | Cardiology Progress Note ---
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 Normal ejection fraction - Indwelling Devlin catheter - Recurrent enterococcal and fungal UTIs - Recent VRE and Sylvia albicans UTI - Recurrent hematuria - Currently with E. coli UTI, findings consistent with osteomyelitis at the pubic symphysis via December 21, 2024 MRI Severe aortic valve stenosis. Risks of intervention are greater than benefit given infection issues. Examination with mild multifactorial fluid retention. Orthostatic hypotension. Labile blood pressures noted. Consider reduction in midodrine dosing from 3 times per day to twice per day, 2.5 mg first thing in the morning and again in early afternoon. Pericardial effusion. Echocardiogram on December 20, 2024 with stable small circumferential pericardial effusion unchanged compared to November 2024, without evidence of tamponade, fibrinous strands present consistent with some degree of chronicity Untreated obstructive sleep apnea History of DVT and PE, status post IVC filter. Apixaban (Eliquis) stopped 12/22/2024 ? for bone biopsy Admission and Anticipated Discharge Date Admission Date: December 19, 2024 Supervising Physician Co-Signing Physician Notes Attending attestation: Case reviewed with the advanced practitioner. I have personally performed a history and physical examination on the patient. I have reviewed the advanced practitioner's documentation on the date of service referenced in note, and I agree with, and take responsibility for the plan of care. Consider subcu heparin or subcutaneous Lovenox for DVT prophylaxis while off of Eliquis pending bone biopsy. Zak Rubio, DO Subjective Patient seen and examined. Sitting in the bedside chair. No chest pain. Breathing improved. Telemetry: Sinus with occasional ventricular ectopy, heart rates in the 60's and 70's. Physical Exam Physical Exam: General: NAD. HENT: Normocephalic. Atraumatic. Eyes: PER. Conjunctiva pink, sclera clear. Neck: No overt JVD. Heart: RRR. Grade II/ systolic ejection murmur. Lungs: Diminished. Clear to auscultation. Abdomen: +BS. Soft. Nontender. No masses or organomegaly. Devlin catheter in place Extremities: Trace to 1+ distal edema. Stasis changes. Results & Data Vital Signs (Past 12 Hours) Vital Signs Temp Pulse Pulse Resp BP Pulse Ox O2 Del Method 12/23/24 11:47 36.6 C 66 18 138/73 100 Room Air 12/23/24 07:46 Room Air 12/23/24 07:07 36.4 C L 68 20 152/81 H 98 Room Air 12/23/24 05:40 69 12/23/24 04:04 36.6 C 67 20 143/78 H 99 Room Air Laboratory Results CBC 12/23/24 Range/Units 07:05 WBC 4.94 (4.8-10.8) K/ul RBC 3.58 L (4.70-6.10) M/uL Hgb 10.2 L (14.0-18.0) g/dl Hct 31.5 L (42.0-52.0) % Plt Count 268 (130-400) K/uL Comprehensive Metabolic Panel 12/23/24 Range/Units 07:05 Sodium 144 (136-145) mmol/L Potassium 3.3 L (3.5-5.1) mmol/L Chloride 112 H (98-107) mmol/L Carbon Dioxide 27 (21-32) mmol/L BUN 13 (6-23) mg/dl Creatinine 1.29 (0.6-1.4) mg/dl Glucose 95 (70-99(Fasting)) mg/dl Calcium 8.5 L (8.6-10.3) mg/dl Intake and Output 12/22/24 12/23/24 12/23/24 22:59 06:59 14:59 Intake Total 500 / 700 200 / 700 Output Total 375 / 975 350 / 975 Balance 125 / -275 -150 / -275 - -1 Intake: Oral 500 / 700 200 / 700 Output: Urine Amount (Catheter) 375 / 975 350 / 975 Devlin/Indwelling 375 / 975 350 / 975 # Bowel Movements Other: Weight 99.5 kg Weight Measurement Method Built in [facility] (1) Fall Encounter type: initial encounter Qualified Code(s): W19.XXXA - Unspecified fall, initial encounter
[2024-12-24 06:43] LABS: Hematocrit (blood only) 31.3 % (42.0-52.0); Hemoglobin 10.3 g/dl (14.0-18.0); Mean Corpuscular Hemoglobin 29.5 pg (25.0-34.0); Mean Corpuscular Hgb Conc 32.9 g/dL (32.0-36.0); Mean Corpuscular Volume 89.7 fL (80.0-100.0); Mean Platelet Volume 8.8 fL (9.4-12.4); Platelet Count 262 K/uL (130-400); RDW Coefficient of Variation 15.8 % (11.5-14.5); RDW Standard Deviation 51.4 fL (36.4-46.3); Red Blood Count 3.49 M/uL (4.70-6.10); White Blood Count 6.23 K/ul (4.8-10.8)
[2024-12-24 07:38] LABS: BUN Creatinine Ratio 9.9 (10-20); Calcium 8.5 mg/dl (8.6-10.3); Creatinine Clr Calc Pharmacy 58.6 ml/min; Potassium 3.7 mmol/L (3.5-5.1)
--- NOTE | 2024-12-24 12:04 | Hospitalist Progress Note ---
Date of Service December 24, 2024 Assessment & Plan (1) Fall: (2) Confusion: (3) Complicated urinary tract infection: (4) Hypoxia: (5) Aortic stenosis: (6) Orthostatic hypotension: (7) Anemia: (8) Adrenal insufficiency: (9) Dementia: (10) Mild cognitive impairment: (11) COPD (chronic obstructive pulmonary disease): (12) Stage 3 chronic kidney disease: Plan 79 year old male with PMH significant for adrenal insufficiency on chronic steroids, asthma/COPD, ANDRZEJ not on CPAP, 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 Fall -likely 2/2 ambulatory dysfunction, orthostatic hypotension, severe aortic stenosis -Pelvis x-ray negative for fracture -CT abdomen revealed compression fracture of L2-L3 - this is unchanged from previous CT on 12/[address] [facility] Plan: -PT/OT consults -appreciate cardiology consult, consideration for syncope etiology Confusion Moderate Dementia -UA is strongly suggestive of UTI in setting of confusion, however patient denies traditional symptoms -in setting of known dementia -likely multifactorial, hyperactive delirium, infection, dementia Plan: -stop all abx per ID as not showing active signs of infection -appreciate ID consultation -stop anticholinergics if possible -f/u culture results -continue thiamine, folic acid Pubic Osteomyelitis -likely in setting of radiation therapy -concern that this could be acutely infected Plan: -ID consult, appreciate recs -per my discussion personally with ID, recommend bone biopsy to guide treatment, bone biopsy ordered, scheduled for Wednesday -NPO after midnight, preop labs ordered Complicated E. coli UTI Chronic tatum with recurrent UTIs History of VRE UTI -UA +nitrate, leuk esterase, WBC, bacteria, yeast -continue ceftriaxone Severe Aortic stenosis -Echo on 12/08/2024 showed severe aortic stenosis -Has not seen Cardiology since June 2024 -Patient reporting episodes of passing out and worsening SOB on exertion -Consult Cardiology and appreciate recs Orthostatic hypotension -Continue florinef Anemia -Chronic, stable -Continue ferrous sulfate MWF Adrenal insufficiency -Continue hydrocortisone COPD -Chronic, stable -Continue Trelegy, PRN albuterol CKD III Chronic, stable I spent a total of 45 minutes in direct patient care, including [id number] time with the patient and/or family, reviewing medical records, ordering and reviewing diagnostic tests, and coordinating care with other healthcare providers. This time includes: history taking, physical examination, medical decision making, counseling, ECG interpretation, imaging interpretation, lab interpretation, orders, and education, excluding time spent in the performance of separately billed services. Admission and Anticipated Discharge Date Admission Date: December 19, 2024 Subjective Patient seen and examined at bedside. Patient doing ok today, feels comfortable. Review of Systems Review of Systems: CONSTITUTIONAL: Patient denies fevers, chills, sweats and weight changes. EYES: Patient denies any visual symptoms. EARS, NOSE, AND THROAT: No difficulties with hearing. No symptoms of rhinitis or sore throat. CARDIOVASCULAR: Patient denies chest pains, palpitations, orthopnea and paroxysmal nocturnal dyspnea. RESPIRATORY: No dyspnea on exertion, no wheezing or cough. GI: No nausea, vomiting, diarrhea, constipation, abdominal pain, hematochezia or melena. : No urinary hesitancy or dribbling. No nocturia or urinary frequency. No abnormal urethral discharge. MUSCULOSKELETAL: No myalgias or arthralgias. NEUROLOGIC: No chronic headaches, no seizures. Patient denies numbness, tingling or weakness. PSYCHIATRIC: Patient denies problems with mood disturbance. No problems with anxiety. ENDOCRINE: No excessive urination or excessive thirst. DERMATOLOGIC: Patient denies any rashes or skin changes. Physical Exam Physical Exam: Gen: A&O 2 NAD HEENT: NCAT, EOMI, not icteric. External ears normal. No rhinorrhea. Moist mucous membranes. Neck: Supple, full range of motion, no observable masses, No meningeal sign. Lungs: No Respiratory distress. CV: RRR, no edema. Abdomen: Soft, nondistended, No rebound tenderness. MSK: No joint swelling, no redness. Skin: No rashes, petechiae, lesions. Normal color per patient. Neuro: Normal Gait, Grossly intact. Psych: confused, improved from prior Results & Data Results & Data Vital Signs (Past 12 Hours) Vital Signs Temp Pulse Pulse Resp BP Pulse Ox O2 Del Method 12/24/24 11:24 36.7 C 63 19 148/79 H 100 Room Air 12/24/24 07:49 36.5 C 64 19 116/76 96 Room Air 12/24/24 05:52 71 Laboratory Results -personally reviewed, sodium of 146 has been slowly increasing Medications Administered Acetaminophen (Acetaminophen 325 Mg Tab) 650 mg PO Q4H PRN PRN Reason: pain/fever Stop: 01/18/25 16:59 Last Admin: 12/24/24 08:29 Dose: 650 mg Documented By: Admin: 12/22/24 14:44 Dose: 650 mg Documented By: Admin: 12/19/24 21:05 Dose: 650 mg Documented By: CHRIS Ascorbic Acid (Ascorbic Acid 500 Mg Tab) 1,000 mg PO DAILY [facility] Stop: 01/19/25 08:59 Last Admin: 12/24/24 08:30 Dose: 1,000 mg Documented By: Admin: 12/23/24 08:34 Dose: 1,000 mg Documented By: Admin: 12/22/24 09:17 Dose: 1,000 mg Documented By: Admin: 12/21/24 10:13 Dose: 1,000 mg Documented By: Admin: 12/20/24 08:27 Dose: 1,000 mg Documented By: TESS Buspirone HCl (Buspirone 5 Mg Tab) 10 mg PO TID [facility] Stop: 01/21/25 20:59 Last Admin: 12/24/24 08:30 Dose: 10 mg Documented By: Admin: 12/23/24 20:42 Dose: 10 mg Documented By: Admin: 12/23/24 13:50 Dose: 10 mg Documented By: Admin: 12/23/24 08:33 Dose: 10 mg Documented By: Admin: 12/22/24 20:35 Dose: 10 mg Documented By: KERI Cyanocobalamin (Cyanocobalamin (B-12) 500 Mcg Tablet) 1,000 mcg PO DAILY [facility] Stop: 01/19/25 08:59 Last Admin: 12/24/24 08:29 Dose: 1,000 mcg Documented By: Admin: 12/23/24 08:34 Dose: 1,000 mcg Documented By: Admin: 12/22/24 09:18 Dose: 1,000 mcg Documented By: Admin: 12/21/24 10:14 Dose: 1,000 mcg Documented By: Admin: 12/20/24 08:27 Dose: 1,000 mcg Documented By: TESS Fludrocortisone Acetate (Fludrocortisone Acetate 0.1 Mg Tab) 0.1 mg PO DAILY [facility] Stop: 01/19/25 08:59 Last Admin: 12/24/24 08:30 Dose: 0.1 mg Documented By: Admin: 12/23/24 08:35 Dose: 0.1 mg Documented By: Admin: 12/22/24 09:18 Dose: 0.1 mg Documented By: Admin: 12/21/24 10:14 Dose: 0.1 mg Documented By: Admin: 12/20/24 08:28 Dose: 0.1 mg Documented By: TESS Fluticasone/Vilanterol (Fluticasone/Vilanterol 200/25mcg 14 Puffs/Inhaler) 1 puffs INH DAILY [facility] Stop: 01/19/25 08:59 Last Admin: 12/24/24 08:29 Dose: 1 puffs Documented By: Admin: 12/23/24 08:32 Dose: 1 puffs Documented By: Admin: 12/22/24 09:19 Dose: 1 puffs Documented By: Admin: 12/21/24 10:14 Dose: 1 puffs Documented By: Admin: 12/20/24 08:28 Dose: 1 puffs Documented By: TESS Folic Acid (Folic Acid 1 Mg Tab) 1 mg PO QAM [facility] Stop: 01/19/25 13:29 Last Admin: 12/24/24 08:30 Dose: 1 mg Documented By: Admin: 12/23/24 08:34 Dose: 1 mg Documented By: Admin: 12/22/24 09:17 Dose: 1 mg Documented By: Admin: 12/21/24 10:15 Dose: 1 mg Documented By: Admin: 12/20/24 14:58 Dose: 1 mg Documented By: TESS Hydrocortisone (Hydrocortisone 10 Mg Tab) 10 mg PO DAILY@1500 [facility] Stop: 01/18/25 16:59 Last Admin: 12/23/24 13:50 Dose: 10 mg Documented By: Admin: 12/22/24 14:45 Dose: 10 mg Documented By: Admin: 12/21/24 15:02 Dose: 10 mg Documented By: Admin: 12/20/24 14:58 Dose: 10 mg Documented By: Admin: 12/19/24 17:52 Dose: 10 mg Documented By: GLENN Hydrocortisone (Hydrocortisone 10 Mg Tab) 20 mg PO QAM [facility] Stop: 01/19/25 08:59 Last Admin: 12/24/24 08:30 Dose: 20 mg Documented By: Admin: 12/23/24 08:35 Dose: 20 mg Documented By: Admin: 12/22/24 09:17 Dose: 20 mg Documented By: Admin: 12/21/24 10:16 Dose: 20 mg Documented By: Admin: 12/20/24 08:28 Dose: 20 mg Documented By: TESS Memantine (Memantine Hcl 10 Mg Tab) 10 mg PO BID [facility] Stop: 01/18/25 20:59 Last Admin: 12/24/24 08:30 Dose: 10 mg Documented By: Admin: 12/23/24 20:42 Dose: 10 mg Documented By: Admin: 12/23/24 08:33 Dose: 10 mg Documented By: Admin: 12/22/24 20:35 Dose: 10 mg Documented By: Admin: 12/22/24 09:17 Dose: 10 mg Documented By: Admin: 12/21/24 20:43 Dose: 10 mg Documented By: Admin: 12/21/24 10:16 Dose: 10 mg Documented By: Admin: 12/20/24 20:46 Dose: 10 mg Documented By: Admin: 12/20/24 08:29 Dose: 10 mg Documented By: Admin: 12/19/24 21:04 Dose: 10 mg Documented By: CHRIS Midodrine (Midodrine Hcl 2.5 Mg Tab) 2.5 mg PO TID@0800,1200,1700 [facility] Stop: 01/19/25 16:59 Last Admin: 12/24/24 08:29 Dose: 2.5 mg Documented By: Admin: 12/23/24 17:18 Dose: 2.5 mg Documented By: Admin: 12/23/24 12:38 Dose: 2.5 mg Documented By: Admin: 12/23/24 08:33 Dose: 2.5 mg Documented By: Admin: 12/22/24 17:40 Dose: 2.5 mg Documented By: Admin: 12/22/24 12:34 Dose: 2.5 mg Documented By: RLJosé Antonio Admin: 12/22/24 09:16 Dose: 2.5 mg Documented By: Admin: 12/21/24 16:37 Dose: 2.5 mg Documented By: Admin: 12/21/24 13:25 Dose: 2.5 mg Documented By: Admin: 12/21/24 10:12 Dose: 2.5 mg Documented By: Admin: 12/20/24 17:08 Dose: 2.5 mg Documented By: TESS Miscellaneous (Remove Lidoderm Patch) 1 each N/A DAILY@2100 [facility] Stop: 01/18/25 20:59 Last Admin: 12/23/24 18:23 Dose: Not Given Documented By: Admin: 12/22/24 20:36 Dose: Not Given Documented By: Admin: 12/21/24 20:43 Dose: 1 each Documented By: Admin: 12/20/24 20:46 Dose: 1 each Documented By: Admin: 12/19/24 21:04 Dose: 1 each Documented By: CHRIS Pantoprazole Sodium (Pantoprazole 40 Mg Tab) 40 mg PO DAILY [facility] Stop: 01/19/25 08:59 Last Admin: 12/24/24 08:30 Dose: 40 mg Documented By: Admin: 12/23/24 08:32 Dose: 40 mg Documented By: Admin: 12/22/24 09:18 Dose: 40 mg Documented By: Admin: 12/21/24 10:16 Dose: 40 mg Documented By: Admin: 12/20/24 08:29 Dose: 40 mg Documented By: TESS Thiamine HCl (Thiamine Hcl 100 Mg Tab) 100 mg PO QAM [facility] Stop: 01/19/25 13:29 Last Admin: 12/24/24 08:30 Dose: 100 mg Documented By: Admin: 12/23/24 08:32 Dose: 100 mg Documented By: Admin: 12/22/24 09:18 Dose: 100 mg Documented By: Admin: 12/21/24 10:16 Dose: 100 mg Documented By: Admin: 12/20/24 14:58 Dose: 100 mg Documented By: TESS Vibegron (Vibegron 75 Mg Tab) 75 mg PO DAILY [facility] Stop: 01/19/25 08:59 Last Admin: 12/24/24 08:30 Dose: 75 mg Documented By: Admin: 12/23/24 08:35 Dose: 75 mg Documented By: Admin: 12/22/24 09:19 Dose: 75 mg Documented By: Admin: 12/21/24 10:17 Dose: 75 mg Documented By: Admin: 12/20/24 08:29 Dose: 75 mg Documented By: TESS Vitamin D (Cholecalciferol 125 Mcg (5,000 Units) Tab) 125 mcg PO DAILY [facility] Stop: 01/19/25 08:59 Last Admin: 12/24/24 08:30 Dose: 125 mcg Documented By: Admin: 12/23/24 08:33 Dose: 125 mcg Documented By: Admin: 12/22/24 09:18 Dose: 125 mcg Documented By: Admin: 12/21/24 10:13 Dose: 125 mcg Documented By: Admin: 12/20/24 08:27 Dose: 125 mcg Documented By: TESS (1) Fall Encounter type: initial encounter Qualified Code(s): W19.XXXA - Unspecified fall, initial encounter (5) Aortic stenosis Cardiac valve disease etiology: nonrheumatic Qualified Code(s): I35.0 - Nonrheumatic aortic (valve) stenosis (7) Anemia Anemia type: unspecified type Qualified Code(s): D64.9 - Anemia, unspecified (9) Dementia Dementia type: unspecified type Dementia severity: unspecified severity Dementia behavioral or psychological symptom: unspecified whether behavioral, psychotic, or mood disturbance or anxiety Qualified Code(s): F03.90 - Unspecified dementia, unspecified severity, without behavioral disturbance, psychotic disturbance, mood disturbance, and anxiety (12) Stage 3 chronic kidney disease Chronic kidney disease stage 3 subtype: unspecified whether 3a or 3b Qualified Code(s): N18.30 - Chronic kidney disease, stage 3 unspecified
[2024-12-24] MEDS: hydrALAZINE HCL 20 MG/ML VIAL IV STA (22:20)
[2024-12-25 06:55] LABS: Hemoglobin 10.8 g/dl (14.0-18.0); Mean Corpuscular Hemoglobin 29.2 pg (25.0-34.0); Mean Corpuscular Hgb Conc 32.7 g/dL (32.0-36.0); Mean Corpuscular Volume 89.2 fL (80.0-100.0); Mean Platelet Volume 8.9 fL (9.4-12.4); Platelet Count 278 K/uL (130-400); RDW Coefficient of Variation 15.6 % (11.5-14.5); RDW Standard Deviation 50.8 fL (36.4-46.3); White Blood Count 6.84 K/ul (4.8-10.8)
[2024-12-25 07:20] LABS: INR 1.1 (0.9-1.1); Prothrombin Time 11.9 Seconds (9.0-12.0)
[2024-12-25 07:23] LABS: BUN Creatinine Ratio 11.2 (10-20); Calcium 8.6 mg/dl (8.6-10.3); Creatinine Clr Calc Pharmacy 61.7 ml/min; Potassium 3.5 mmol/L (3.5-5.1)
--- NOTE | 2024-12-25 11:47 | Hospitalist Progress Note ---
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 Fall -likely 2/2 ambulatory dysfunction, orthostatic hypotension, severe aortic stenosis -Pelvis x-ray negative for fracture -CT abdomen revealed compression fracture of L2-L3 - this is unchanged from previous CT on 12/01 at [facility] Plan: -PT/OT consults -appreciate cardiology consult, consideration for syncope etiology Confusion Moderate Dementia -UA is strongly suggestive of UTI in setting of confusion, however patient denies traditional symptoms -in setting of known dementia -likely multifactorial, hyperactive delirium, infection, dementia Plan: -stop all abx per ID as not showing active signs of infection -appreciate ID consultation -stop anticholinergics if possible -f/u culture results -continue thiamine, folic acid 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 coli UTI Chronic tatum with recurrent UTIs History of VRE UTI -UA +nitrate, leuk esterase, WBC, bacteria, yeast Severe Aortic stenosis -Echo on 12/08/2024 showed severe aortic stenosis -Has not seen Cardiology since June 2024 -Patient reporting episodes of passing out and worsening SOB on exertion -Consult Cardiology and appreciate recs Orthostatic hypotension -Continue florinef Anemia -Chronic, stable -Continue ferrous sulfate MWF Adrenal insufficiency -Continue hydrocortisone COPD -Chronic, stable -Continue Trelegy, PRN albuterol CKD III Chronic, stable I spent a total of 50 minutes in direct patient care, including [id number] time with the patient and/or family, reviewing medical records, ordering and reviewing diagnostic tests, and coordinating care with other healthcare providers. This time includes: history taking, physical examination, medical decision making, counseling, ECG interpretation, imaging interpretation, lab interpretation, orders, and education, excluding time spent in the performance of separately billed services. Admission and Anticipated Discharge Date Admission Date: December 19, 2024 Subjective Patient doing well today, no concerns. Went to IR for biopsy today. Review of Systems Review of Systems: CONSTITUTIONAL: Patient denies fevers, chills, sweats and weight changes. EYES: Patient denies any visual symptoms. EARS, NOSE, AND THROAT: No difficulties with hearing. No symptoms of rhinitis or sore throat. CARDIOVASCULAR: Patient denies chest pains, palpitations, orthopnea and paroxysmal nocturnal dyspnea. RESPIRATORY: No dyspnea on exertion, no wheezing or cough. GI: No nausea, vomiting, diarrhea, constipation, abdominal pain, hematochezia or melena. : No urinary hesitancy or dribbling. No nocturia or urinary frequency. No abnormal urethral discharge. MUSCULOSKELETAL: No myalgias or arthralgias. NEUROLOGIC: No chronic headaches, no seizures. Patient denies numbness, tingling or weakness. PSYCHIATRIC: Patient denies problems with mood disturbance. No problems with anxiety. ENDOCRINE: No excessive urination or excessive thirst. DERMATOLOGIC: Patient denies any rashes or skin changes. Physical Exam Physical Exam: Gen: A&O 2 NAD HEENT: NCAT, EOMI, not icteric. External ears normal. No rhinorrhea. Moist mucous membranes. Neck: Supple, full range of motion, no observable masses, No meningeal sign. Lungs: No Respiratory distress. CV: RRR, no edema. Abdomen: Soft, nondistended, No rebound tenderness. MSK: No joint swelling, no redness. s/p biopsy site noted Skin: No rashes, petechiae, lesions. Normal color per patient. Neuro: Normal Gait, Grossly intact. Psych: confused Results & Data Results & Data Vital Signs (Past 12 Hours) Vital Signs Temp Pulse Pulse Resp BP BP Pulse Ox 12/25/24 11:10 36.7 C 69 22 157/78 H 100 05/12/25 11:06 36.6 C 78 14 170/81 H 100 12/25/24 10:15 36.6 C 66 18 160/84 H 97 12/25/24 09:13 12/25/24 07:22 36.7 C 74 14 156/81 H 98 12/25/24 07:00 65 12/25/24 02:49 36.6 C 66 16 163/79 H 97 O2 Del Method 12/25/24 11:10 Room Air 12/25/24 11:06 Room Air 12/25/24 10:15 Room Air 12/25/24 09:13 Room Air 12/25/24 07:22 Room Air 12/25/24 07:00 12/25/24 02:49 Room Air Laboratory Results -personally reviewed, Na 126 likely in setting of dehydration, same as yesterday Medications Administered Acetaminophen (Acetaminophen 325 Mg Tab) 650 mg PO Q4H PRN PRN Reason: pain/fever Stop: 01/18/25 16:59 Last Admin: 12/24/24 16:17 Dose: 650 mg Documented By: Admin: 12/24/24 08:29 Dose: 650 mg Documented By: Admin: 12/22/24 14:44 Dose: 650 mg Documented By: Admin: 12/19/24 21:05 Dose: 650 mg Documented By: CHRIS Ascorbic Acid (Ascorbic Acid 500 Mg Tab) 1,000 mg PO DAILY [facility] Stop: 01/19/25 08:59 Last Admin: 12/25/24 08:20 Dose: 1,000 mg Documented By: Admin: 12/24/24 08:30 Dose: 1,000 mg Documented By: Admin: 12/23/24 08:34 Dose: 1,000 mg Documented By: Admin: 12/22/24 09:17 Dose: 1,000 mg Documented By: Admin: 12/21/24 10:13 Dose: 1,000 mg Documented By: Admin: 12/20/24 08:27 Dose: 1,000 mg Documented By: TESS Buspirone HCl (Buspirone 5 Mg Tab) 10 mg PO TID TAWNY Stop: 01/21/25 20:59 Last Admin: 12/25/24 08:21 Dose: 10 mg Documented By: Admin: 12/24/24 20:37 Dose: 10 mg Documented By: Admin: 12/24/24 14:17 Dose: 10 mg Documented By: Admin: 12/24/24 08:30 Dose: 10 mg Documented By: Admin: 12/23/24 20:42 Dose: 10 mg Documented By: Admin: 12/23/24 13:50 Dose: 10 mg Documented By: Admin: 12/23/24 08:33 Dose: 10 mg Documented By: Admin: 12/22/24 20:35 Dose: 10 mg Documented By: KERI Cyanocobalamin (Cyanocobalamin (B-12) 500 Mcg Tablet) 1,000 mcg PO DAILY TAWNY Stop: 01/19/25 08:59 Last Admin: 12/25/24 08:20 Dose: 1,000 mcg Documented By: Admin: 12/24/24 08:29 Dose: 1,000 mcg Documented By: Admin: 12/23/24 08:34 Dose: 1,000 mcg Documented By: Admin: 12/22/24 09:18 Dose: 1,000 mcg Documented By: Admin: 12/21/24 10:14 Dose: 1,000 mcg Documented By: Admin: 12/20/24 08:27 Dose: 1,000 mcg Documented By: TESS Fludrocortisone Acetate (Fludrocortisone Acetate 0.1 Mg Tab) 0.1 mg PO DAILY TAWNY Stop: 01/19/25 08:59 Last Admin: 12/25/24 08:21 Dose: 0.1 mg Documented By: Admin: 12/24/24 08:30 Dose: 0.1 mg Documented By: Admin: 12/23/24 08:35 Dose: 0.1 mg Documented By: Admin: 12/22/24 09:18 Dose: 0.1 mg Documented By: Admin: 12/21/24 10:14 Dose: 0.1 mg Documented By: Admin: 12/20/24 08:28 Dose: 0.1 mg Documented By: DAGMARR Fluticasone/Vilanterol (Fluticasone/Vilanterol 200/25mcg 14 Puffs/Inhaler) 1 puffs INH DAILY TAWNY Stop: 01/19/25 08:59 Last Admin: 12/25/24 08:20 Dose: 1 puffs Documented By: Admin: 12/24/24 08:29 Dose: 1 puffs Documented By: Admin: 12/23/24 08:32 Dose: 1 puffs Documented By: Admin: 12/22/24 09:19 Dose: 1 puffs Documented By: Admin: 12/21/24 10:14 Dose: 1 puffs Documented By: Admin: 12/20/24 08:28 Dose: 1 puffs Documented By: TESS Folic Acid (Folic Acid 1 Mg Tab) 1 mg PO QAM TAWNY Stop: 01/19/25 13:29 Last Admin: 12/25/24 08:21 Dose: 1 mg Documented By: Admin: 12/24/24 08:30 Dose: 1 mg Documented By: Admin: 12/23/24 08:34 Dose: 1 mg Documented By: Admin: 12/22/24 09:17 Dose: 1 mg Documented By: Admin: 12/21/24 10:15 Dose: 1 mg Documented By: Admin: 12/20/24 14:58 Dose: 1 mg Documented By: TESS Hydrocortisone (Hydrocortisone 10 Mg Tab) 10 mg PO DAILY@1500 TAWNY Stop: 01/18/25 16:59 Last Admin: 12/24/24 14:17 Dose: 10 mg Documented By: Admin: 12/23/24 13:50 Dose: 10 mg Documented By: Admin: 12/22/24 14:45 Dose: 10 mg Documented By: Admin: 12/21/24 15:02 Dose: 10 mg Documented By: Admin: 12/20/24 14:58 Dose: 10 mg Documented By: Admin: 12/19/24 17:52 Dose: 10 mg Documented By: GLENN Hydrocortisone (Hydrocortisone 10 Mg Tab) 20 mg PO QAM TAWNY Stop: 01/19/25 08:59 Last Admin: 12/25/24 08:20 Dose: 20 mg Documented By: Admin: 12/24/24 08:30 Dose: 20 mg Documented By: Admin: 12/23/24 08:35 Dose: 20 mg Documented By: Admin: 12/22/24 09:17 Dose: 20 mg Documented By: Admin: 12/21/24 10:16 Dose: 20 mg Documented By: Admin: 12/20/24 08:28 Dose: 20 mg Documented By: TESS Memantine (Memantine Hcl 10 Mg Tab) 10 mg PO BID TAWNY Stop: 01/18/25 20:59 Last Admin: 12/25/24 08:22 Dose: 10 mg Documented By: Admin: 12/24/24 20:37 Dose: 10 mg Documented By: Admin: 12/24/24 08:30 Dose: 10 mg Documented By: Admin: 12/23/24 20:42 Dose: 10 mg Documented By: Admin: 12/23/24 08:33 Dose: 10 mg Documented By: Admin: 12/22/24 20:35 Dose: 10 mg Documented By: Admin: 12/22/24 09:17 Dose: 10 mg Documented By: RLJosé Antonio Admin: 12/21/24 20:43 Dose: 10 mg Documented By: Admin: 12/21/24 10:16 Dose: 10 mg Documented By: Admin: 12/20/24 20:46 Dose: 10 mg Documented By: Admin: 12/20/24 08:29 Dose: 10 mg Documented By: RRBethany Admin: 12/19/24 21:04 Dose: 10 mg Documented By: CHRIS Midodrine (Midodrine Hcl 2.5 Mg Tab) 2.5 mg PO TID@0800,1200,1700 TAWNY Stop: 01/19/25 16:59 Last Admin: 12/25/24 08:21 Dose: 2.5 mg Documented By: Admin: 12/24/24 16:17 Dose: 2.5 mg Documented By: Admin: 12/24/24 12:13 Dose: 2.5 mg Documented By: Admin: 12/24/24 08:29 Dose: 2.5 mg Documented By: Admin: 12/23/24 17:18 Dose: 2.5 mg Documented By: Admin: 12/23/24 12:38 Dose: 2.5 mg Documented By: Admin: 12/23/24 08:33 Dose: 2.5 mg Documented By: Admin: 12/22/24 17:40 Dose: 2.5 mg Documented By: Admin: 12/22/24 12:34 Dose: 2.5 mg Documented By: Admin: 12/22/24 09:16 Dose: 2.5 mg Documented By: Admin: 12/21/24 16:37 Dose: 2.5 mg Documented By: Admin: 12/21/24 13:25 Dose: 2.5 mg Documented By: Admin: 12/21/24 10:12 Dose: 2.5 mg Documented By: Admin: 12/20/24 17:08 Dose: 2.5 mg Documented By: TESS Miscellaneous (Remove Lidoderm Patch) 1 each N/A DAILY@2100 TAWNY Stop: 01/18/25 20:59 Last Admin: 12/24/24 20:38 Dose: Not Given Documented By: Admin: 12/23/24 18:23 Dose: Not Given Documented By: Admin: 12/22/24 20:36 Dose: Not Given Documented By: Admin: 12/21/24 20:43 Dose: 1 each Documented By: Admin: 12/20/24 20:46 Dose: 1 each Documented By: Admin: 12/19/24 21:04 Dose: 1 each Documented By: CHRIS Pantoprazole Sodium (Pantoprazole 40 Mg Tab) 40 mg PO DAILY TAWNY Stop: 01/19/25 08:59 Last Admin: 12/25/24 08:22 Dose: 40 mg Documented By: Admin: 12/24/24 08:30 Dose: 40 mg Documented By: Admin: 12/23/24 08:32 Dose: 40 mg Documented By: Admin: 12/22/24 09:18 Dose: 40 mg Documented By: Admin: 12/21/24 10:16 Dose: 40 mg Documented By: Admin: 12/20/24 08:29 Dose: 40 mg Documented By: TESS Thiamine HCl (Thiamine Hcl 100 Mg Tab) 100 mg PO QAM TAWNY Stop: 01/19/25 13:29 Last Admin: 12/25/24 08:21 Dose: 100 mg Documented By: Admin: 12/24/24 08:30 Dose: 100 mg Documented By: Admin: 12/23/24 08:32 Dose: 100 mg Documented By: Admin: 12/22/24 09:18 Dose: 100 mg Documented By: Admin: 12/21/24 10:16 Dose: 100 mg Documented By: Admin: 12/20/24 14:58 Dose: 100 mg Documented By: TESS Vibegron (Vibegron 75 Mg Tab) 75 mg PO DAILY TAWNY Stop: 01/19/25 08:59 Last Admin: 12/25/24 08:20 Dose: 75 mg Documented By: Admin: 12/24/24 08:30 Dose: 75 mg Documented By: Admin: 12/23/24 08:35 Dose: 75 mg Documented By: Admin: 12/22/24 09:19 Dose: 75 mg Documented By: Admin: 12/21/24 10:17 Dose: 75 mg Documented By: Admin: 12/20/24 08:29 Dose: 75 mg Documented By: TESS Vitamin D (Cholecalciferol 125 Mcg (5,000 Units) Tab) 125 mcg PO DAILY [facility] Stop: 01/19/25 08:59 Last Admin: 12/25/24 08:21 Dose: 125 mcg Documented By: Admin: 12/24/24 08:30 Dose: 125 mcg Documented By: Admin: 12/23/24 08:33 Dose: 125 mcg Documented By: Admin: 12/22/24 09:18 Dose: 125 mcg Documented By: Admin: 12/21/24 10:13 Dose: 125 mcg Documented By: Admin: 12/20/24 08:27 Dose: 125 mcg Documented By: TESS (1) Fall Encounter type: initial encounter Qualified Code(s): W19.XXXA - Unspecified fall, initial encounter (5) Aortic stenosis Cardiac valve disease etiology: nonrheumatic Qualified Code(s): I35.0 - Nonrheumatic aortic (valve) stenosis (7) Anemia Anemia type: unspecified type Qualified Code(s): D64.9 - Anemia, unspecified (9) Dementia Dementia type: unspecified type Dementia severity: unspecified severity Dementia behavioral or psychological symptom: unspecified whether behavioral, psychotic, or mood disturbance or anxiety Qualified Code(s): F03.90 - Unspecified dementia, unspecified severity, without behavioral disturbance, psychotic disturbance, mood disturbance, and anxiety (12) Stage 3 chronic kidney disease Chronic kidney disease stage 3 subtype: unspecified whether 3a or 3b Qualified Code(s): N18.30 - Chronic kidney disease, stage 3 unspecified
--- NOTE | 2024-12-25 12:17 | CT Scan Report ---
CT guided bone biopsy INDICATION: Osteomyelitis involving the pubic symphysis/pubic bones PROCEDURE: Procedure and risks were explained. Informed consent was obtained. A final timeout was com pleted. The patient was supine on the CT exam table. The lower abdomen was prepped and draped in ster ile fashion. 1% lidocaine was utilized for skin anesthesia. Utilizing CT guidance, an 11-gauge bone biopsy needle was advanced into the right pubic bone. 1 bone core was obtained and sent to the lab. The needle was removed and Band-Aid applied. The patient magali ated the procedure well. Vital signs will be monitored postprocedure. IMPRESSION: Bone biopsy as above. Performed, dictated, and signed by Ernesto Jackson PA-C; to be co-signed by Dr. Hawk Hensley. Electronically signed by: Hawk Hensley M.D. 12/25/2024 12:55 PM
[2024-12-25] MEDS: LACTATED RINGER'S 1,000 ML IV SCH (12:51)
[2024-12-26 06:27] LABS: Hematocrit (blood only) 31.7 % (42.0-52.0); Hemoglobin 10.5 g/dl (14.0-18.0); Mean Corpuscular Hemoglobin 29.2 pg (25.0-34.0); Mean Corpuscular Hgb Conc 33.1 g/dL (32.0-36.0); Mean Corpuscular Volume 88.3 fL (80.0-100.0); Mean Platelet Volume 8.7 fL (9.4-12.4); Platelet Count 256 K/uL (130-400); RDW Coefficient of Variation 15.7 % (11.5-14.5); RDW Standard Deviation 50.2 fL (36.4-46.3); Red Blood Count 3.59 M/uL (4.70-6.10); White Blood Count 5.56 K/ul (4.8-10.8)
[2024-12-26 06:43] LABS: BUN Creatinine Ratio 10.8 (10-20); Calcium 8.5 mg/dl (8.6-10.3); Creatinine Clr Calc Pharmacy 59.1 ml/min; Magnesium 1.8 mg/dl (1.7-2.4); Phosphorus 3.6 mg/dl (2.5-4.9); Potassium 3.8 mmol/L (3.5-5.1)
--- NOTE | 2024-12-26 12:40 | Hospitalist Progress Note ---
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 Fall -likely 2/2 ambulatory dysfunction, orthostatic hypotension, severe aortic stenosis -Pelvis x-ray negative for fracture -CT abdomen revealed compression fracture of L2-L3 - this is unchanged from previous CT on 12/01 at [facility] Plan: -PT/OT consults -appreciate cardiology consult, consideration for syncope etiology Confusion, improving Moderate Dementia -in setting of known dementia -likely multifactorial, hyperactive delirium, osteomyelitis, dementia Plan: -stop all abx per ID as not showing active signs of infection -appreciate ID consultation -stop anticholinergics if possible -continue thiamine, folic acid 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 coli UTI, resolving Chronic tatum with recurrent UTIs History of VRE UTI -UA +nitrate, leuk esterase, WBC, bacteria, yeast -per ID, stop antibiotics Severe Aortic stenosis -Echo on 12/08/2024 showed severe aortic stenosis -Has not seen Cardiology since June 2024 -Patient reporting episodes of passing out and worsening SOB on exertion -Consult Cardiology and appreciate recs Plan: -will need aortic stenosis evaluation with cardiology once acute issues such as osteomyelitis are treated, discussed with cardiology Orthostatic hypotension -Continue florinef Anemia -Chronic, stable -Continue ferrous sulfate MWF Adrenal insufficiency -Continue hydrocortisone COPD -Chronic, stable -Continue Trelegy, PRN albuterol CKD III -Chronic, stable I spent a total of 45 minutes in direct patient care, including [id number] time with the patient and/or family, reviewing medical records, ordering and reviewing diagnostic tests, and coordinating care with other healthcare providers. This time includes: history taking, physical examination, medical decision making, counseling, ECG interpretation, imaging interpretation, lab interpretation, orders, and education, excluding time spent in the performance of separately billed services. Admission and Anticipated Discharge Date Admission Date: December 19, 2024 Subjective Patient seen and examined at bedside. Patient doing well this morning. States he is looking forward to the biopsy results. Better mentation today. This provider had conversation with patients over the phone yesterday 12/25/2024, in which several comments were made by regarding the ethnicity of certain doctors in patients recent past. These comments were immediately discussed/documented with my gang supervisor pipe lines Dr. Millan and case management team. Today on 12/26/2024, before I handed off my service to another provider, I called to reinforce [facility]'s no tolerance for racism policy. His wifes response to this conversation was additionally discussed/documented with Dr. Millan. Review of Systems Review of Systems: CONSTITUTIONAL: Patient denies fevers, chills, sweats and weight changes. EYES: Patient denies any visual symptoms. EARS, NOSE, AND THROAT: No difficulties with hearing. No symptoms of rhinitis or sore throat. CARDIOVASCULAR: Patient denies chest pains, palpitations, orthopnea and paroxysmal nocturnal dyspnea. RESPIRATORY: No dyspnea on exertion, no wheezing or cough. GI: No nausea, vomiting, diarrhea, constipation, abdominal pain, hematochezia or melena. : No urinary hesitancy or dribbling. No nocturia or urinary frequency. No abnormal urethral discharge. MUSCULOSKELETAL: No myalgias or arthralgias. NEUROLOGIC: No chronic headaches, no seizures. Patient denies numbness, tingling or weakness. PSYCHIATRIC: Patient denies problems with mood disturbance. No problems with anxiety. ENDOCRINE: No excessive urination or excessive thirst. DERMATOLOGIC: Patient denies any rashes or skin changes. Physical Exam Physical Exam: Gen: A&O 2 NAD HEENT: NCAT, EOMI, not icteric. External ears normal. No rhinorrhea. Moist mucous membranes. Neck: Supple, full range of motion, no observable masses, No meningeal sign. Lungs: No Respiratory distress. CV: RRR, no edema. Abdomen: Soft, nondistended, No rebound tenderness. MSK: No joint swelling, no redness. s/p biopsy site noted Skin: No rashes, petechiae, lesions. Normal color per patient. Neuro: Normal Gait, Grossly intact. Psych: confused, improved from yesterday Results & Data Results & Data Vital Signs (Past 12 Hours) Vital Signs Temp Pulse Pulse Resp BP BP Pulse Ox 12/26/24 11:40 36.7 C 77 18 115/65 100 12/26/24 07:53 36.8 C 68 18 172/81 H 99 12/26/24 07:29 66 12/26/24 02:52 36.6 C 59 L 16 158/79 H 98 12/26/24 00:46 69 172/90 H O2 Del Method 12/26/24 11:40 Room Air 12/26/24 07:53 Room Air 12/26/24 07:29 12/26/24 02:52 Room Air 12/26/24 00:46 Laboratory Results -personally reviewed, no leukocytosis noted Medications Administered Acetaminophen (Acetaminophen 325 Mg Tab) 650 mg PO Q4H PRN PRN Reason: pain/fever Stop: 01/18/25 16:59 Last Admin: 12/25/24 12:50 Dose: 650 mg Documented By: Admin: 12/24/24 16:17 Dose: 650 mg Documented By: Admin: 12/24/24 08:29 Dose: 650 mg Documented By: Admin: 12/22/24 14:44 Dose: 650 mg Documented By: Admin: 12/19/24 21:05 Dose: 650 mg Documented By: CHRIS Ascorbic Acid (Ascorbic Acid 500 Mg Tab) 1,000 mg PO DAILY TAWNY Stop: 01/19/25 08:59 Last Admin: 12/26/24 08:19 Dose: 1,000 mg Documented By: Admin: 12/25/24 08:20 Dose: 1,000 mg Documented By: Admin: 12/24/24 08:30 Dose: 1,000 mg Documented By: Admin: 12/23/24 08:34 Dose: 1,000 mg Documented By: Admin: 12/22/24 09:17 Dose: 1,000 mg Documented By: Admin: 12/21/24 10:13 Dose: 1,000 mg Documented By: Admin: 12/20/24 08:27 Dose: 1,000 mg Documented By: DAGMARR Buspirone HCl (Buspirone 5 Mg Tab) 10 mg PO TID TAWNY Stop: 01/21/25 20:59 Last Admin: 12/26/24 13:04 Dose: 10 mg Documented By: Admin: 12/26/24 08:19 Dose: 10 mg Documented By: Admin: 12/25/24 20:38 Dose: 10 mg Documented By: Admin: 12/25/24 12:51 Dose: 10 mg Documented By: Admin: 12/25/24 08:21 Dose: 10 mg Documented By: Admin: 12/24/24 20:37 Dose: 10 mg Documented By: Admin: 12/24/24 14:17 Dose: 10 mg Documented By: Admin: 12/24/24 08:30 Dose: 10 mg Documented By: Admin: 12/23/24 20:42 Dose: 10 mg Documented By: Admin: 12/23/24 13:50 Dose: 10 mg Documented By: Admin: 12/23/24 08:33 Dose: 10 mg Documented By: Admin: 12/22/24 20:35 Dose: 10 mg Documented By: KERI Cyanocobalamin (Cyanocobalamin (B-12) 500 Mcg Tablet) 1,000 mcg PO DAILY TAWNY Stop: 01/19/25 08:59 Last Admin: 12/26/24 08:20 Dose: 1,000 mcg Documented By: Admin: 12/25/24 08:20 Dose: 1,000 mcg Documented By: Admin: 12/24/24 08:29 Dose: 1,000 mcg Documented By: Admin: 12/23/24 08:34 Dose: 1,000 mcg Documented By: Admin: 12/22/24 09:18 Dose: 1,000 mcg Documented By: Admin: 12/21/24 10:14 Dose: 1,000 mcg Documented By: Admin: 12/20/24 08:27 Dose: 1,000 mcg Documented By: RRR Fludrocortisone Acetate (Fludrocortisone Acetate 0.1 Mg Tab) 0.1 mg PO DAILY TAWNY Stop: 01/19/25 08:59 Last Admin: 12/26/24 08:19 Dose: 0.1 mg Documented By: Admin: 12/25/24 08:21 Dose: 0.1 mg Documented By: Admin: 12/24/24 08:30 Dose: 0.1 mg Documented By: Admin: 12/23/24 08:35 Dose: 0.1 mg Documented By: Admin: 12/22/24 09:18 Dose: 0.1 mg Documented By: Admin: 12/21/24 10:14 Dose: 0.1 mg Documented By: Admin: 12/20/24 08:28 Dose: 0.1 mg Documented By: TESS Fluticasone/Vilanterol (Fluticasone/Vilanterol 200/25mcg 14 Puffs/Inhaler) 1 puffs INH DAILY TAWNY Stop: 01/19/25 08:59 Last Admin: 12/26/24 08:18 Dose: 1 puffs Documented By: Admin: 12/25/24 08:20 Dose: 1 puffs Documented By: Admin: 12/24/24 08:29 Dose: 1 puffs Documented By: Admin: 12/23/24 08:32 Dose: 1 puffs Documented By: Admin: 12/22/24 09:19 Dose: 1 puffs Documented By: Admin: 12/21/24 10:14 Dose: 1 puffs Documented By: Admin: 12/20/24 08:28 Dose: 1 puffs Documented By: DAGMARR Folic Acid (Folic Acid 1 Mg Tab) 1 mg PO QAM TAWNY Stop: 01/19/25 13:29 Last Admin: 12/26/24 08:20 Dose: 1 mg Documented By: Admin: 12/25/24 08:21 Dose: 1 mg Documented By: Admin: 12/24/24 08:30 Dose: 1 mg Documented By: Admin: 12/23/24 08:34 Dose: 1 mg Documented By: Admin: 12/22/24 09:17 Dose: 1 mg Documented By: Admin: 12/21/24 10:15 Dose: 1 mg Documented By: Admin: 12/20/24 14:58 Dose: 1 mg Documented By: TESS Hydrocortisone (Hydrocortisone 10 Mg Tab) 10 mg PO DAILY@1500 TAWNY Stop: 01/18/25 16:59 Last Admin: 12/26/24 14:49 Dose: 10 mg Documented By: Admin: 12/25/24 12:51 Dose: 10 mg Documented By: Admin: 12/24/24 14:17 Dose: 10 mg Documented By: Admin: 12/23/24 13:50 Dose: 10 mg Documented By: Admin: 12/22/24 14:45 Dose: 10 mg Documented By: Admin: 12/21/24 15:02 Dose: 10 mg Documented By: Admin: 12/20/24 14:58 Dose: 10 mg Documented By: Admin: 12/19/24 17:52 Dose: 10 mg Documented By: GLENN Hydrocortisone (Hydrocortisone 10 Mg Tab) 20 mg PO QAM TAWNY Stop: 01/19/25 08:59 Last Admin: 12/26/24 08:20 Dose: 20 mg Documented By: Admin: 12/25/24 08:20 Dose: 20 mg Documented By: Admin: 12/24/24 08:30 Dose: 20 mg Documented By: Admin: 12/23/24 08:35 Dose: 20 mg Documented By: Admin: 12/22/24 09:17 Dose: 20 mg Documented By: Admin: 12/21/24 10:16 Dose: 20 mg Documented By: Admin: 12/20/24 08:28 Dose: 20 mg Documented By: TESS Memantine (Memantine Hcl 10 Mg Tab) 10 mg PO BID TAWNY Stop: 01/18/25 20:59 Last Admin: 12/26/24 08:18 Dose: 10 mg Documented By: Admin: 12/25/24 20:38 Dose: 10 mg Documented By: Admin: 12/25/24 08:22 Dose: 10 mg Documented By: Admin: 12/24/24 20:37 Dose: 10 mg Documented By: Admin: 12/24/24 08:30 Dose: 10 mg Documented By: Admin: 12/23/24 20:42 Dose: 10 mg Documented By: Admin: 12/23/24 08:33 Dose: 10 mg Documented By: Admin: 12/22/24 20:35 Dose: 10 mg Documented By: Admin: 12/22/24 09:17 Dose: 10 mg Documented By: RLJosé Antonio Admin: 12/21/24 20:43 Dose: 10 mg Documented By: Admin: 12/21/24 10:16 Dose: 10 mg Documented By: Admin: 12/20/24 20:46 Dose: 10 mg Documented By: Admin: 12/20/24 08:29 Dose: 10 mg Documented By: Admin: 12/19/24 21:04 Dose: 10 mg Documented By: CHRIS Midodrine (Midodrine Hcl 2.5 Mg Tab) 2.5 mg PO TID@0800,1200,1700 TAWNY Stop: 01/19/25 16:59 Last Admin: 12/26/24 16:35 Dose: 2.5 mg Documented By: J Admin: 12/26/24 12:27 Dose: 2.5 mg Documented By: Admin: 12/26/24 08:18 Dose: Not Given Documented By: Admin: 12/25/24 18:23 Dose: 2.5 mg Documented By: Admin: 12/25/24 12:51 Dose: 2.5 mg Documented By: Admin: 12/25/24 08:21 Dose: 2.5 mg Documented By: Admin: 12/24/24 16:17 Dose: 2.5 mg Documented By: Admin: 12/24/24 12:13 Dose: 2.5 mg Documented By: Admin: 12/24/24 08:29 Dose: 2.5 mg Documented By: JLJosé Antonio Admin: 12/23/24 17:18 Dose: 2.5 mg Documented By: Admin: 12/23/24 12:38 Dose: 2.5 mg Documented By: Admin: 12/23/24 08:33 Dose: 2.5 mg Documented By: JLJosé Antonio Admin: 12/22/24 17:40 Dose: 2.5 mg Documented By: Admin: 12/22/24 12:34 Dose: 2.5 mg Documented By: RLJosé Antonio Admin: 12/22/24 09:16 Dose: 2.5 mg Documented By: Admin: 12/21/24 16:37 Dose: 2.5 mg Documented By: Admin: 12/21/24 13:25 Dose: 2.5 mg Documented By: Admin: 12/21/24 10:12 Dose: 2.5 mg Documented By: Admin: 12/20/24 17:08 Dose: 2.5 mg Documented By: TESS Miscellaneous (Remove Lidoderm Patch) 1 each N/A DAILY@2100 TAWNY Stop: 01/18/25 20:59 Last Admin: 12/25/24 19:25 Dose: Not Given Documented By: Admin: 12/24/24 20:38 Dose: Not Given Documented By: Admin: 12/23/24 18:23 Dose: Not Given Documented By: Admin: 12/22/24 20:36 Dose: Not Given Documented By: Admin: 12/21/24 20:43 Dose: 1 each Documented By: Admin: 12/20/24 20:46 Dose: 1 each Documented By: Admin: 12/19/24 21:04 Dose: 1 each Documented By: CHRIS Pantoprazole Sodium (Pantoprazole 40 Mg Tab) 40 mg PO DAILY TAWNY Stop: 01/19/25 08:59 Last Admin: 12/26/24 08:20 Dose: 40 mg Documented By: Admin: 12/25/24 08:22 Dose: 40 mg Documented By: Admin: 12/24/24 08:30 Dose: 40 mg Documented By: Admin: 12/23/24 08:32 Dose: 40 mg Documented By: Admin: 12/22/24 09:18 Dose: 40 mg Documented By: Admin: 12/21/24 10:16 Dose: 40 mg Documented By: RRBethany Admin: 12/20/24 08:29 Dose: 40 mg Documented By: TESS Thiamine HCl (Thiamine Hcl 100 Mg Tab) 100 mg PO QAM TAWNY Stop: 01/19/25 13:29 Last Admin: 12/26/24 08:19 Dose: 100 mg Documented By: Admin: 12/25/24 08:21 Dose: 100 mg Documented By: Admin: 12/24/24 08:30 Dose: 100 mg Documented By: Admin: 12/23/24 08:32 Dose: 100 mg Documented By: Admin: 12/22/24 09:18 Dose: 100 mg Documented By: Admin: 12/21/24 10:16 Dose: 100 mg Documented By: Admin: 12/20/24 14:58 Dose: 100 mg Documented By: TESS Vibegron (Vibegron 75 Mg Tab) 75 mg PO DAILY TAWNY Stop: 01/19/25 08:59 Last Admin: 12/26/24 08:19 Dose: 75 mg Documented By: Admin: 12/25/24 08:20 Dose: 75 mg Documented By: Admin: 12/24/24 08:30 Dose: 75 mg Documented By: Admin: 12/23/24 08:35 Dose: 75 mg Documented By: Admin: 12/22/24 09:19 Dose: 75 mg Documented By: Admin: 12/21/24 10:17 Dose: 75 mg Documented By: Admin: 12/20/24 08:29 Dose: 75 mg Documented By: TESS Vitamin D (Cholecalciferol 125 Mcg (5,000 Units) Tab) 125 mcg PO DAILY TAWNY Stop: 01/19/25 08:59 Last Admin: 12/26/24 08:19 Dose: 125 mcg Documented By: Admin: 12/25/24 08:21 Dose: 125 mcg Documented By: Admin: 12/24/24 08:30 Dose: 125 mcg Documented By: Admin: 12/23/24 08:33 Dose: 125 mcg Documented By: Admin: 12/22/24 09:18 Dose: 125 mcg Documented By: Admin: 12/21/24 10:13 Dose: 125 mcg Documented By: Admin: 12/20/24 08:27 Dose: 125 mcg Documented By: TESS (1) Fall Encounter type: initial encounter Qualified Code(s): W19.XXXA - Unspecified fall, initial encounter (5) Aortic stenosis Cardiac valve disease etiology: nonrheumatic Qualified Code(s): I35.0 - Nonrheumatic aortic (valve) stenosis (7) Anemia Anemia type: unspecified type Qualified Code(s): D64.9 - Anemia, unspecified (9) Dementia Dementia behavioral or psychological symptom: unspecified whether behavioral, psychotic, or mood disturbance or anxiety Dementia severity: unspecified severity Dementia type: unspecified type Qualified Code(s): F03.90 - Unspecified dementia, unspecified severity, without behavioral disturbance, psychotic disturbance, mood disturbance, and anxiety (12) Stage 3 chronic kidney disease Chronic kidney disease stage 3 subtype: unspecified whether 3a or 3b Qualified Code(s): N18.30 - Chronic kidney disease, stage 3 unspecified
[2024-12-26] MEDS: APIXABAN 2.5 MG TAB PO SCH (20:53)
[2024-12-27 07:36] LABS: Hematocrit (blood only) 33.3 % (42.0-52.0); Hemoglobin 10.8 g/dl (14.0-18.0); Mean Corpuscular Hemoglobin 29.2 pg (25.0-34.0); Mean Corpuscular Hgb Conc 32.4 g/dL (32.0-36.0); Platelet Count 278 K/uL (130-400); RDW Coefficient of Variation 15.8 % (11.5-14.5); RDW Standard Deviation 51.2 fL (36.4-46.3); White Blood Count 11.15 K/ul (4.8-10.8)
[2024-12-27 07:50] LABS: BUN Creatinine Ratio 10.9 (10-20); Calcium 8.4 mg/dl (8.6-10.3); Creatinine Clr Calc Pharmacy 59.5 ml/min; Potassium 3.6 mmol/L (3.5-5.1)
--- NOTE | 2024-12-27 14:58 | Hospitalist Progress Note ---
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 Fall -likely 2/2 ambulatory dysfunction, orthostatic hypotension, severe aortic stenosis -Pelvis x-ray negative for fracture -CT abdomen revealed compression fracture of L2-L3 - this is unchanged from previous CT on 12/01 at [facility] Plan: -PT/OT consults -appreciate cardiology consult, consideration for syncope etiology Patient's family currently not interested in SNF placement Prefers discharge home with home health Confusion, improved Moderate Dementia -in setting of known dementia -likely multifactorial, hyperactive delirium, osteomyelitis, dementia Plan: -stop all abx per ID as not showing active signs of infection -appreciate ID consultation -stop anticholinergics if possible -continue thiamine, folic acid Suspected pubic Osteomyelitis: Ruled out -Changes on imaging likely in setting of radiation therapy --Bone marrow biopsy showed no microscopic evidence of osteonecrosis or osteomyelitis Complicated E. coli UTI, resolved Chronic tatum with recurrent UTIs History of VRE UTI -UA +nitrate, leuk esterase, WBC, bacteria, yeast -per ID, stop antibiotics Severe Aortic stenosis -Echo on 12/08/2024 showed severe aortic stenosis -Has not seen Cardiology since June 2024 -Patient reporting episodes of passing out and worsening SOB on exertion -Consult Cardiology and appreciate recs Plan: -will need aortic stenosis evaluation with cardiology once acute issues such as osteomyelitis are treated, discussed with cardiology Orthostatic hypotension -Continue florinef Anemia -Chronic, stable -Continue ferrous sulfate MWF Adrenal insufficiency -Continue hydrocortisone COPD -Chronic, stable -Continue Trelegy, PRN albuterol CKD III -Chronic, stable DVT Px Eliquis Code Status Full Code Disposition HH likely tomorrow Admission and Anticipated Discharge Date Admission Date: December 19, 2024 Subjective Patient is seen and examined at bedside No specific complaints today Sitting in chair during my encounter Updated patient's over the phone Patient denies any chest pain, dyspnea, nausea, vomiting, abdominal pain Review of Systems Review of Systems: All systems reviewed & are unremarkable except as noted in Subjective Physical Exam Physical Exam: Physical Exam: Vitals signs as noted above General Appearance:Moderately built and nourished, no apparent distress Head: normocephalic, Atraumatic Eyes: normal inspection, EOMI Neck: supple, Trachea midline Respiratory/Chest: Normal breath sounds, CTA, No accessory muscle use Cardiovascular: S1, S2, + murmur Abdomen/GI:Soft, Non tender, Bowel sounds present Extremities/Musculoskeletal:normal inspection, 1+edema, chronic venous stasis changes Neurologic/Psych:AAOX2, grossly no focal neurological deficits Skin: normal color, warm Results & Data Results & Data Vital Signs (Past 12 Hours) Vital Signs Temp Pulse Pulse Resp BP Pulse Ox O2 Del Method 12/27/24 11:14 36.8 C 81 16 162/85 H 99 Room Air 12/27/24 07:31 36.7 C 82 18 160/76 H 97 Room Air 12/27/24 07:08 70 12/27/24 03:32 36.8 C 73 16 144/76 H 98 Room Air Laboratory Results Short CBC 12/27/24 Range/Units 06:54 WBC 11.15 H (4.8-10.8) K/ul Hgb 10.8 L (14.0-18.0) g/dl Hct 33.3 L (42.0-52.0) % Plt Count 278 (130-400) K/uL BMP 12/27/24 06:54 Sodium 144 Potassium 3.6 Chloride 112 H Carbon Dioxide 26 BUN 14 Creatinine 1.29 Glucose 97 Calcium 8.4 L (1) Fall Encounter type: initial encounter Qualified Code(s): W19.XXXA - Unspecified fall, initial encounter (5) Aortic stenosis Cardiac valve disease etiology: nonrheumatic Qualified Code(s): I35.0 - Nonrheumatic aortic (valve) stenosis (7) Anemia Anemia type: unspecified type Qualified Code(s): D64.9 - Anemia, unspecified (9) Dementia Dementia type: unspecified type Dementia severity: unspecified severity Dementia behavioral or psychological symptom: unspecified whether behavioral, psychotic, or mood disturbance or anxiety Qualified Code(s): F03.90 - Unspecified dementia, unspecified severity, without behavioral disturbance, psychotic disturbance, mood disturbance, and anxiety (12) Stage 3 chronic kidney disease Chronic kidney disease stage 3 subtype: unspecified whether 3a or 3b Qualified Code(s): N18.30 - Chronic kidney disease, stage 3 unspecified
[2024-12-27 19:54] VITALS: RESP 18
[2024-12-28 07:30] LABS: Hematocrit (blood only) 32.6 % (42.0-52.0); Hemoglobin 10.7 g/dl (14.0-18.0); Mean Corpuscular Hemoglobin 29.2 pg (25.0-34.0); Mean Corpuscular Hgb Conc 32.8 g/dL (32.0-36.0); Mean Corpuscular Volume 88.8 fL (80.0-100.0); Mean Platelet Volume 8.5 fL (9.4-12.4); Platelet Count 222 K/uL (130-400); RDW Coefficient of Variation 16.1 % (11.5-14.5); Red Blood Count 3.67 M/uL (4.70-6.10); White Blood Count 11.67 K/ul (4.8-10.8)
[2024-12-28 07:47] LABS: Calcium 8.6 mg/dl (8.6-10.3); Creatinine Clr Calc Pharmacy 58.1 ml/min; Potassium 3.4 mmol/L (3.5-5.1)
[2024-12-28 07:59] VITALS: BP 139/77; PULSE 68; TEMP 98.4; O2SAT 97
[2024-12-28] MEDS ORDERED: POTASSIUM CHLORIDE 10 MEQ TABCR PO ONE (09:01)
--- NOTE | 2024-12-28 11:12 | Hospitalist Progress Note ---
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 Fall -likely 2/2 ambulatory dysfunction, orthostatic hypotension, severe aortic stenosis -Pelvis x-ray negative for fracture -CT abdomen revealed compression fracture of L2-L3 - this is unchanged from previous CT on 12/01 at [facility] Plan: -PT/OT consults -appreciate cardiology consult, consideration for syncope etiology Patient's family currently not interested in SNF placement Prefers discharge home with home health Plan to discharge home today Confusion, improved Moderate Dementia -in setting of known dementia -likely multifactorial, hyperactive delirium, osteomyelitis, dementia Plan: -stop all abx per ID as not showing active signs of infection -appreciate ID consultation -stop anticholinergics if possible -continue thiamine, folic acid Continue current management Suspected pubic Osteomyelitis: Ruled out -Changes on imaging likely in setting of radiation therapy --Bone marrow biopsy showed no microscopic evidence of osteonecrosis or osteomyelitis Complicated E. coli UTI, resolved Chronic Devlin with recurrent UTIs History of VRE UTI -UA +nitrate, leuk esterase, WBC, bacteria, yeast -per ID, stop antibiotics Advised to follow-up with urology on discharge as outpatient Severe Aortic stenosis -Echo on 12/08/2024 showed severe aortic stenosis -Has not seen Cardiology since June 2024 -Patient reporting episodes of passing out and worsening SOB on exertion -Consult Cardiology and appreciate recs -will need aortic stenosis evaluation with cardiology once acute issues such as osteomyelitis are treated, discussed with cardiology Orthostatic hypotension -Continue florinef Anemia -Chronic, stable -Continue ferrous sulfate MWF Adrenal insufficiency -Continue hydrocortisone Mild leukocytosis likely due to steroid use COPD -Chronic, stable -Continue Trelegy, PRN albuterol CKD III -Chronic, stable DVT Px Eliquis Code Status Full Code Disposition Home with home health Admission and Anticipated Discharge Date Admission Date: December 19, 2024 Subjective Patient is seen and examined at bedside Anxious to be discharged home today Feels better No specific complaints Afebrile Patient denies any chest pain, dyspnea, nausea, vomiting, abdominal pain, dysuria Plan to be discharged home Review of Systems Review of Systems: All systems reviewed & are unremarkable except as noted in Subjective Physical Exam Physical Exam: Physical Exam: Vitals signs as noted above General Appearance:Moderately built and nourished, no apparent distress Head: normocephalic, Atraumatic Eyes: normal inspection, EOMI Neck: supple, Trachea midline Respiratory/Chest: Normal breath sounds, CTA, No accessory muscle use Cardiovascular: S1, S2, + murmur Abdomen/GI:Soft, Non tender, Bowel sounds present Extremities/Musculoskeletal:normal inspection, 1+edema, chronic venous stasis changes Neurologic/Psych:AAOX2, grossly no focal neurological deficits Skin: normal color, warm Results & Data Results & Data Vital Signs (Past 12 Hours) Vital Signs Temp Pulse Pulse Resp BP BP Pulse Ox 12/28/24 07:58 36.9 C 68 18 139/77 97 12/28/24 07:54 71 12/27/24 23:37 76 12/27/24 23:25 37 C 70 18 141/72 H 94 O2 Del Method 12/28/24 07:58 Room Air 12/28/24 07:54 12/27/24 23:37 12/27/24 23:25 Room Air Laboratory Results Short CBC 12/28/24 Range/Units 07:17 WBC 11.67 H (4.8-10.8) K/ul Hgb 10.7 L (14.0-18.0) g/dl Hct 32.6 L (42.0-52.0) % Plt Count 222 (130-400) K/uL BMP 12/28/24 07:17 Sodium 141 Potassium 3.4 L Chloride 109 H Carbon Dioxide 26 BUN 16 Creatinine 1.33 Glucose 91 Calcium 8.6 (1) Fall Encounter type: initial encounter Qualified Code(s): W19.XXXA - Unspecified fall, initial encounter (5) Aortic stenosis Cardiac valve disease etiology: nonrheumatic Qualified Code(s): I35.0 - Nonrheumatic aortic (valve) stenosis (7) Anemia Anemia type: unspecified type Qualified Code(s): D64.9 - Anemia, unspecified (9) Dementia Dementia type: unspecified type Dementia severity: unspecified severity Dementia behavioral or psychological symptom: unspecified whether behavioral, psychotic, or mood disturbance or anxiety Qualified Code(s): F03.90 - Unspecified dementia, unspecified severity, without behavioral disturbance, psychotic disturbance, mood disturbance, and anxiety (12) Stage 3 chronic kidney disease Chronic kidney disease stage 3 subtype: unspecified whether 3a or 3b Qualified Code(s): N18.30 - Chronic kidney disease, stage 3 unspecified
--- NOTE | 2024-12-28 11:24 | Discharge Summary ---
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 Patient reports that he passed out and fell on his butt this morning. He does not recall much from the event but denies dizziness or lightheadedness prior to going down. He did not hit his head and does not think he lost consciousness. He notes that he has had 3-4 falls over the last 3-4 months and reports that he keeps passing out. He also endorses SOB on exertion that has worsened over the last 3-4 months. He denies chest pain, recent illness, fevers, chills, cough, cold symptoms, abdominal pain, N/V, hematuria, hematochezia. He endorses an episode of diarrhea 3 days ago that has since resolved. He also reports worsening confusion over the last 3 weeks. I spoke with his to obtain further history and she notes that she has not witnessed any of his recent falls including the one today. She reports that she heard him yell out for her and when she went downstairs, she saw he was on the floor in the living room with his walker. She notes that he is not supposed to get out of his hospital bed without her. She says he did not tell her that he passed out but she did not see this or any recent fall to know for sure. She also reports that he has been increasingly confused, which that in addition to his urine smelling foul yesterday, is why she asked her home health nurse to drop a urine sample off because she is concerned he has another UTI. She notes that he has been "out of it" and does not seem to know what is going on for the last few weeks. Per chart review, patient was recently admitted at [facility] from 12/01-12/02 for another fall. He underwent imaging including CXR (negative), pelvis xray (negative for fracture, stable Paget's disease of right hemipelvis), head CT (negative for acute process, mild small vessel disease), cervical spine CT (negative), chest CT (small pericardial effusion, coronary artery calcifications, ascending thoracic aorta dilated to 4.3cm), abdomen CT (mild bladder wall thickening and adjacent fat stranding suggestive of cystitis, nephrolithiasis without hydronephrosis, compression fracture of L2 and L3, moderate degenerative joint disease L4-L5, mild to moderate degenerative joint disease in bilateral hip joints), brain MRI (no acute infarction, chronic microvascular ischemic changes). He was admitted to the hospitalist service for sepsis with VIOLETA due to complicated UTI and hematuria from malpositioned tatum. He was previously being treated with macrobid for VRE UTI discovered on urine culture from home health collection. While at [facility], infectious disease was consulted, and recommended stopping macrobid and treat the VRE UTI with Linezolid 600mg bid x7 days. They recommended Urology follow up for cystoscopy and patient has an appointment scheduled on 01/03/2025. His urine culture from [facility] on 12/02 did not grow anything. Admission Exam Per Admitting Provider General/Psych: WD/WN, sitting up in bed, NAD, conversing easily, euthymic affect Head: normocephalic, atraumatic Eyes: normal inspection, PERRL, conjunctivae pink, anicteric sclerae ENT: external ear and nose normal, oropharynx normal Neck: normal visual inspection, trachea midline, no thyromegaly Respiratory: normal respiratory effort, lungs clear to auscultation, no wheeze/rales/rhonchi, no accessory muscle use Cardiovascular: regular rate and rhythm, systolic murmur appreciated, no JVD Extremities: no cyanosis or clubbing, normal peripheral pulses, non-pitting BLE edema Abdomen/GI: normal bowel sounds, soft, nontender, no hepatosplenomegaly, no suprapubic tenderness Neurologic/MSK: A+Ox3, CN's II-XI intact bilaterally, motor strength 5/5, moves all extremities Skin: no rashes, normal color, warm and dry Principal Diagnosis Fall Ambulatory dysfunction Dementia Complicated urinary tract infection Severe aortic stenosis Adrenal insufficiency Discharge Data Allergies Allergy/AdvReac Type Severity Reaction Status Date / Time Iodinated Contrast Media Allergy Severe LOVERSOL---CARDIAC Verified 11/12/24 20:[address] CONTRAST clindamycin Allergy Intermediate Rash Verified 11/12/24 20:27 cranberry Allergy Unknown Unknown Verified 11/12/24 20:27 caffeine Allergy Verified 11/13/24 15:45 chocolate flavor AdvReac Severe DIARRHEA/ Verified 11/12/24 20:27 Cannot take, interacts w/ medications. pembrolizumab [From [employer]] AdvReac Intermediate myocarditis Verified 11/12/24 20:27 Consultations 12/19/24 10:40 ED Decision to Admit Stat 12/19/24 17:00 Consult Cardiology Routine 12/20/24 14:00 Consult Urology Routine 12/20/24 14:12 Consult Infectious Diseases Routine Procedures Performed Laboratory Results WBC 11.67 K/ul (4.8-10.8) H 12/28/24 07:17 RBC 3.67 M/uL (4.70-6.10) L 12/28/24 07:17 Hgb 10.7 g/dl (14.0-18.0) L 12/28/24 07:17 Hct 32.6 % (42.0-52.0) L 12/28/24 07:17 MCV 88.8 fL (80.0-100.0) 12/28/24 07:17 MCH 29.2 pg (25.0-34.0) 12/28/24 07:17 MCHC 32.8 g/dL (32.0-36.0) 12/28/24 07:17 RDW Std Deviation 52.0 fL (36.4-46.3) H 12/28/24 07:17 RDW Coeff of Robert 16.1 % (11.5-14.5) H 12/28/24 07:17 Plt Count 222 K/uL (130-400) 12/28/24 07:17 MPV 8.5 fL (9.4-12.4) L 12/28/24 07:17 Immature Gran % (Auto) 0.3 % 12/19/24 08:14 Neut % (Auto) 70.9 % 12/19/24 08:14 Lymph % (Auto) 17.9 % 12/19/24 08:14 [place] % (Auto) 9.2 % 12/19/24 08:14 Eos % (Auto) 1.4 % 12/19/24 08:14 Baso % (Auto) 0.3 % 12/19/24 08:14 Neut # (Auto) 6.81 K/uL (1.40-6.50) H 12/19/24 08:14 Lymph # (Auto) 1.72 K/uL (1.20-3.40) 12/19/24 08:14 [place] # (Auto) 0.88 K/uL (0.11-0.59) H 12/19/24 08:14 Eos # (Auto) 0.13 K/uL (0.00-0.50) 12/19/24 08:14 Baso # (Auto) 0.03 K/uL (0.00-0.20) 12/19/24 08:14 Immature Gran # (Auto) 0.03 K/uL (0.01-0.20) 12/19/24 08:14 PT 11.9 Seconds (9.0-12.0) 12/25/24 06:20 INR 1.1 (0.9-1.1) 12/25/24 06:20 VBG pH 7.38 (7.36-7.41) 12/22/24 10:13 VBG pCO2 41 mmHg (38-50) 12/22/24 10:13 VBG pO2 23 mmHg 12/22/24 10:13 VBG HCO3 24 mmol/L 12/22/24 10:13 VBG O2 Saturation < 60.0 % 12/22/24 10:13 VBG Base Excess -0.8 mEq/L 12/22/24 10:13 Sodium 141 mmol/L (136-145) 12/28/24 07:17 Potassium 3.4 mmol/L (3.5-5.1) L 12/28/24 07:17 Chloride 109 mmol/L (98-107) H 12/28/24 07:17 Carbon Dioxide 26 mmol/L (21-32) 12/28/24 07:17 Anion Gap 6 (3-11) 12/28/24 07:17 BUN 16 mg/dl (6-23) 12/28/24 07:17 Creatinine 1.33 mg/dl (0.6-1.4) 12/28/24 07:17 Est Cr Clr Drug Dosing 58.1 ml/min 12/28/24 07:17 eGFR 54.71 12/28/24 07:17 BUN/Creatinine Ratio 12.0 (10-20) 12/28/24 07:17 Glucose 91 mg/dl (70-99(Fasting)) 12/28/24 07:17 Lactate 0.6 mmol/L (0.4-2.0) 12/19/24 14:09 Calcium 8.6 mg/dl (8.6-10.3) 12/28/24 07:17 Phosphorus 3.6 mg/dl (2.5-4.9) 12/26/24 06:09 Magnesium 1.8 mg/dl (1.7-2.4) 12/26/24 06:09 Total Bilirubin 1.4 mg/dl (0.2-1.0) H 12/19/24 08:14 AST 12 U/L (13-39) L 12/19/24 08:14 ALT 7 U/L (7-52) 12/19/24 08:14 Alkaline Phosphatase 88 U/L (34-104) 12/19/24 08:14 Troponin I High Sens 5.5 pg/ml (0-20) 12/19/24 08:14 Total Protein 6.5 gm/dl (6.0-8.3) 12/19/24 08:14 Albumin 3.8 gm/dl (3.4-5.0) 12/19/24 08:14 Globulin 2.7 gm/dl (2.5-4.0) 12/19/24 08:14 Albumin/Globulin Ratio 1.4 (0.9-2) 12/19/24 08:14 Lipase 5 U/L (11-82) L 12/19/24 08:14 Procalcitonin 0.12 ng/ml (0-0.5) 12/19/24 08:14 TSH 0.561 uIu/ml (0.300-4.500) 12/20/24 05:46 Urine Color Yellow 12/19/24 08:52 Urine Appearance Cloudy (Clear) A 12/19/24 08:52 Urine pH 7.0 (4.5-7.5) 12/19/24 08:52 Ur Specific [place] 1.011 (1.000-1.030) 12/19/24 08:52 Urine Protein 2+ (Negative) H 12/19/24 08:52 Urine Glucose (UA) Negative (Negative) 12/19/24 08:52 Urine Ketones Negative (Negative) 12/19/24 08:52 Urine Blood 2+ (Negative) H 12/19/24 08:52 Urine Nitrite Positive (Negative) A 12/19/24 08:52 Urine Bilirubin Negative (Negative) 12/19/24 08:52 Urine Urobilinogen Negative (Negative) 12/19/24 08:52 Ur Leukocyte Esterase 3+ (Negative) H 12/19/24 08:52 Urine WBC (Auto) >50 /hpf (0-5) H 12/19/24 08:52 Urine RBC (Auto) 11-20 /hpf (0-2) H 12/19/24 08:52 U Hyaline Cast (Auto) 3-5 /lpf (0-2) H 12/19/24 08:52 U Epithel Cells (Auto) 0-2 /hpf (0-2) 12/19/24 08:52 Urine Bacteria (Auto) 4+ (None Seen) H 12/19/24 08:52 Urine Yeast Present (None Prsent) A 12/19/24 08:52 Impressions Abdomen/Pelvis CT 12/19/24 08:18 CT OF THE ABDOMEN AND PELVIS WITHOUT CONTRAST CLINICAL HISTORY: Lower abdominal pain following fall. COMPARISON STUDY: CT of the abdomen and pelvis June 01, 2024. Pelvis radiograph performed earlier today. TECHNIQUE: Axial images of the abdomen and pelvis were obtained without IV contrast. Images were reviewed in the axial, sagittal, and coronal planes. Automated exposure control was utilized for the study. A dose lowering technique was utilized adhering to the principles of ALARA. FINDINGS: A small pericardial effusion is similar to CT of June 01, 2024. There is a trace right pleural effusion. No hemoperitoneum or pneumoperitoneum is present. The solid abdominal viscera are suboptimally assessed on unenhanced exam. There is no evidence for traumatic injury to the liver, spleen, adrenal glands, kidneys or pancreas. A 4 mm left renal calculus is present. There are no ureteral calculi. Mild left hydroureteronephrosis is new since prior CT. There is a 2 mm right upper pole renal calculus. IVC filter is in place. There is no evidence for a bowel obstruction. The prostate is surgically absent. Tatum balloon within the bladder is noted. Bladder wall thickening with adjacent stranding is similar to prior CT. Widening of the symphysis pubis with associated erosion of the medial pubic bones has developed. 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 No acute pelvic or hip fractures are present. L2 and L3 superior endplate compression fractures have developed since CT of June 01, 2024. No retropulsion. There is no extension into the posterior elements. There is 40% loss of height of the L2 vertebral body and 30% loss of height of the L3 vertebral body. IMPRESSION: 1. Mild L2 and L3 compression fractures, new since CT of June 01, 2024. These are age indeterminate although likely subacute to chronic. 2. No additional traumatic findings within the abdomen or pelvis. 3. Widening of the symphysis pubis with associated erosion of the medial pubic bones which has developed since prior CT. This may be degenerative however an infectious process cannot be excluded. 4. Interval development of mild left hydroureteronephrosis of uncertain etiolog y. Left ureter dilated to the level the bladder. Persistent bladder wall thickening with adjacent stranding, unchanged. 5. Bilateral nephrolithiasis. No ureteral calculi. ACT 112: Negative or not required by law. Electronically signed by: Boris Keys M.D. 12/19/2024 9:07 AM Pelvis X-Ray 12/19/24 08:18 XR pelvis 1-2V routine CLINICAL HISTORY: fall COMPARISON: 07/28/2024 FINDINGS: Stable small surgical clips at the pubic symphysis. Stable mild degenerative changes at the hips. Stable mild sclerosis at the pubis. No fracture or dislocation seen. IVC filter is partially visualized. IMPRESSION: No pelvic fracture seen. ACT 112: Negative or not required by law. Electronically signed by: Hawk Hensley M.D. 12/19/2024 8:45 AM Chest X-Ray 12/19/24 08:19 XR chest 1V portable CLINICAL HISTORY: fall COMPARISON STUDY: 11/12/2024 FINDINGS: Stable mild cardiomegaly without pulmonary vascular congestion. Stable mild scarring or atelectasis at the left lung base. No other consolidation or pleural effusion. No pneumothorax. No acute osseous finding seen. IMPRESSION: No acute findings. ACT 112: Negative or not required by law. Electronically signed by: Hawk Hensley M.D. 12/19/2024 8:44 AM Pelvis MRI 12/21/24 10:50 MR pelvis wo con CLINICAL HISTORY: pubic osteomyelitis vs. metastatic disease COMPARISON STUDY: CT scan of 12/19/2024 FINDINGS: There is motion artifact. Tatum catheter is present and the urinary bladder is decompressed. There is urinary bladder wall thickening and adjacent inflammation consistent with bladder infection. There is increased T2 osseous signal on either side of the pubic symphysis. This combined with the cortical irregularity seen on the CT scan is consistent with osteomyelitis at the pubic symphysis. No adjacent soft tissue abscess seen. No other evidence of osteomyelitis seen. No pelvic fracture seen. Stable small bone cyst lateral left femoral head. Stable degenerative changes at the hips and visualized lower lumbar spine. 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 ACT 112: Negative or not required by law. Electronically signed by: Hawk Hensley M.D. 12/21/2024 12:[address] 12/25/24 09:00 CT guided bone biopsy INDICATION: Osteomyelitis involving the pubic symphysis/pubic bones PROCEDURE: Procedure and risks were explained. Informed consent was obtained. A final timeout was completed. The patient was supine on the CT exam table. The lower abdomen was prepped and draped in sterile fashion. 1% lidocaine was utilized for skin anesthesia. Utilizing CT guidance, an 11-gauge bone biopsy needle was advanced into the right pubic bone. 1 bone core was obtained and sent to the lab. The needle was removed and Band-Aid applied. The patient tolerated the procedure well. Vital signs will be monitored postprocedure. IMPRESSION: Bone biopsy as above. Performed, dictated, and signed by Ernesto Jackson PA-C; to be co-signed by Dr. Hawk Hensley. Electronically signed by: Hawk Hensley M.D. 12/25/2024 12:55 PM Ordered Studies 12/19/24 08:18 CT Abd and Pelvis [CT abd pelvis wo con] Stat 12/21/24 10:50 MR pelvis wo con Urgent 12/25/24 09:[address] IR biopsy bone superficial CT Urgent Hospital Course (1) Fall: (2) Confusion: (3) Complicated urinary tract infection: (4) Hypoxia: (5) Aortic stenosis: (6) Orthostatic hypotension: (7) Anemia: (8) Adrenal insufficiency: (9) Dementia: (10) Mild cognitive impairment: (11) COPD (chronic obstructive pulmonary disease): (12) Stage 3 chronic kidney disease: Plan 79 year old male with PMH significant for adrenal insufficiency on chronic steroids, asthma/COPD, ANDRZEJ not on CPAP, 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 Fall -likely 2/2 ambulatory dysfunction, orthostatic hypotension, severe aortic stenosis -Pelvis x-ray negative for fracture -CT abdomen revealed compression fracture of L2-L3 - this is unchanged from previous CT on 12/01 at [facility] Plan: -PT/OT consults -appreciate cardiology consult, consideration for syncope etiology Patient's family currently not interested in SNF placement Prefers discharge home with home health Plan to discharge home today Confusion, improved Moderate Dementia -in setting of known dementia -likely multifactorial, hyperactive delirium, osteomyelitis, dementia Plan: -stop all abx per ID as not showing active signs of infection -appreciate ID consultation -stop anticholinergics if possible -continue thiamine, folic acid Continue current management Suspected pubic Osteomyelitis: Ruled out -Changes on imaging likely in setting of radiation therapy --Bone marrow biopsy showed no microscopic evidence of osteonecrosis or osteomyelitis Complicated E. coli UTI, resolved Chronic Tatum with recurrent UTIs History of VRE UTI -UA +nitrate, leuk esterase, WBC, bacteria, yeast -per ID, stop antibiotics Advised to follow-up with urology on discharge as outpatient Severe Aortic stenosis -Echo on 12/08/2024 showed severe aortic stenosis -Has not seen Cardiology since June 2024 -Patient reporting episodes of passing out and worsening SOB on exertion -Consult Cardiology and appreciate recs -will need aortic stenosis evaluation with cardiology once acute issues such as osteomyelitis are treated, discussed with cardiology Orthostatic hypotension -Continue florinef Anemia -Chronic, stable -Continue ferrous sulfate MWF Adrenal insufficiency -Continue hydrocortisone Mild leukocytosis likely due to steroid use COPD -Chronic, stable -Continue Trelegy, PRN albuterol CKD III -Chronic, stable DVT Px Eliquis Code Status Full Code Disposition Home with home health Total Time Total Time Spent Total Time Spent (In Minutes): 45 minutes Discharge Plan Discharge Items Patient Disposition: Home - Home Health Services Reason For Visit: FALL, CONFUSION Discharge Diagnosis: Fall Ambulatory dysfunction Dementia Complicated urinary tract infection Severe aortic stenosis Adrenal insufficiency Condition on Discharge: Fair Activity: Per Instructions section Exercise/Sports: Gradually increase as tolerated Non-emergency contact: Primary Care Provider and Urologist Call non-emergency contact if: you have any medication questions, your symptoms worsen, your pain is concerning for you and you have a fever Follow-up/Referrals: Deondre Hill MD [Primary Care Provider] - (Date & Time 01/01/2025 11:00 AM Provider: Chuy Batista MD [facility] ) Diet: Heart Healthy Addtl Attending Provider Instructions: Follow-up with your primary care physician on 01/01/2025 11:00 AM Follow-up with your urologist as scheduled Seek immediate medical attention if your symptoms reoccur or worsen Please review medication list provided on discharge for any medication changes as instructed. Please call if you have any questions or problems. You can reach a [facility] hospitalist on duty at [facility] 24 hours a day by calling [phone] Pending Studies at Discharge: No Stand-Alone Forms: My [facility], Smoking Cessation Medications and DC Order Prescriptions: New midodrine 2.5 mg Tablet 2.5 mg PO TID@0800,1200,1700 Qty: 90 1RF buspirone 5 mg Tablet 5 mg PO TID Qty: 90 1RF thiamine HCl (vitamin B1) 100 mg Tablet 100 mg PO QAM Qty: 30 1RF Continued hydrocortisone [Cortef] 10 mg tablet 20 mg PO QAM Qty: 0 0RF hydrocortisone [Cortef] 10 mg tablet 10 mg PO .DAILY @ 1500 Rx Instructions: TAKES 20mg in am. and 10mg at 1500 ferrous sulfate 325 mg (65 mg iron) tablet,delayed release (DR/EC) 325 mg PO 3XWK Rx Instructions: MON, WED, & FRI. magnesium chloride 64 mg tablet,delayed release (DR/EC) 64 mg PO DAILY acetaminophen 325 mg Tablet 650 mg PO Q4H PRN (Reason: fever or pain) Qty: 30 0RF memantine 10 mg Tablet 10 mg PO BID Qty: 60 0RF lidocaine 5 % Adhesive Patch,Medicated 2 patch transdermal DAILY Qty: 20 0RF ascorbic acid (vitamin C) 1,000 mg Tablet 1,000 mg PO DAILY Qty: 30 0RF cyanocobalamin (vitamin B-12) 1,000 mcg Tablet 1,000 mcg PO DAILY Qty: 30 0RF omeprazole 20 mg capsule,delayed release(DR/EC) 20 mg PO DAILY Qty: 30 0RF epinephrine 0.3 mg/0.3 mL Auto-Injector 0.3 mg IM UD PRN (Reason: Anaphylaxis) Qty: 3 0RF Rx Instructions: prn anaphylaxis solifenacin 5 mg tablet 5 mg PO DAILY Qty: 30 0RF cholecalciferol (vitamin D3) [Vitamin D3] 125 mcg (5,000 unit) Tablet 125 mcg PO DAILY Qty: 30 0RF multivit with min-folic acid [Multivitamin Gummies] 200 mcg Tablet,Chewable 1 tab PO DAILY Qty: 30 0RF Trelegy Ellipta 200-62.5-25 mcg blister with device 1 inh INHALATION DAILY Qty: 1 0RF albuterol sulfate 90 mcg/actuation HFA aerosol inhaler 2 puff INHALATION Q6H PRN (Reason: Shortness Of Breath Or Wheezing) fludrocortisone 0.1 mg tablet 0.1 mg PO DAILY Eliquis 2.5 mg Tablet 2.5 mg PO BID Qty: 60 1RF Changed mirabegron [Myrbetriq] 25 mg tablet extended release 24 hr 50 mg PO DAILY Qty: 60 1RF Discharge Orders: Discharge Order (Routine); Ordered 12/28/24 Ordered By: Matt Gongora Admission Data Admit Date/Time: 12/19/24 13:00 Attending Provider: Matt Gongora Admit Provider: Matt Gongora Primary Care Provider: Deondre Hill Other Providers: Chuy Batista; Matt Gongora; Zak Rubio; Calvin Gtz; Darryn Dahl; Mayank Daly; Tom Marti; Pancho Sullivan; Kiki Leach; Latisha Banks; Hu Flood
[2024-12-28] MEDS: POTASSIUM CHLORIDE 10 MEQ TABCR PO ONE (11:32)
== END 2024-12-28 14:15 | disposition home health service (06) | DRG 673 ==
LOC: ED 08:03 → 2W 13:00 → SUATTDRO 13:00 → 2W 16:23

== ENCOUNTER 2025-01-23 11:05 | Observation (INO) ==
[2025-01-23 12:07] LABS: Basophils # (auto) 0.04 K/uL (0.00-0.20); Basophils % (auto) 0.6 %; Eosinophils # (auto) 0.21 K/uL (0.00-0.50); Eosinophils % (auto) 3.1 %; Hemoglobin 12.7 g/dl (14.0-18.0); Immature Granulocytes # (auto) 0.01 K/uL (0.01-0.20); Immature Granulocytes % (auto) 0.1 %; Lymphocytes # (auto) 1.94 K/uL (1.20-3.40); Lymphocytes % (auto) 28.3 %; Mean Corpuscular Hemoglobin 29.3 pg (25.0-34.0); Mean Corpuscular Hgb Conc 33.4 g/dL (32.0-36.0); Mean Corpuscular Volume 87.6 fL (80.0-100.0); Mean Platelet Volume 9.3 fL (9.4-12.4); Monocytes # (auto) 0.52 K/uL (0.11-0.59); Monocytes % (auto) 7.6 %; Neutrophils # (auto) 4.14 K/uL (1.40-6.50); Neutrophils % (auto) 60.3 %; Platelet Count 247 K/uL (130-400); RDW Coefficient of Variation 15.4 % (11.5-14.5); Red Blood Count 4.34 M/uL (4.70-6.10); White Blood Count 6.86 K/ul (4.8-10.8)
--- NOTE | 2025-01-23 12:10 | XRay Report ---
XR chest 1V portable CLINICAL HISTORY: syncope COMPARISON STUDY: 12/19/2024 FINDINGS: Stable mild cardiomegaly without a vascular congestion. Stable mild stranding opacity at th e left lung base. No new consolidation or pleural effusion seen. No pneumothorax. IMPRESSION: No acute findings. ACT 112: Negative or not required by law. Electronically signed by: Hawk Hensley M.D. 01/23/2025 12:09 PM
[2025-01-23 12:29] LABS: Creatinine Clr Calc Pharmacy 54.5 ml/min
[2025-01-23 12:45] LABS: Appearance Urine Clear (Clear); Bacteria Urine Automated 4+ (None Seen); Bilirubin Urine Negative (Negative); Blood Urine Trace (Negative); Cast Urine Automated 0-2 /lpf (0-2); Color Urine Yellow; Epithelial Cell Urine Auto 0-2 /hpf (0-2); Glucose Urine UA Negative (Negative); Ketones Urine Trace (Negative); Leukocyte Esterase Urine 3+ (Negative); Nitrite Urine Positive (Negative); Protein Urine 1+ (Negative); Specific Gravity Urine 1.008 (1.000-1.030); Urobilinogen Urine Negative (Negative); WBC Urine Automated >50 /hpf (0-5); pH Urine 8.5 (4.5-7.5)
[2025-01-23 13:55] LABS: Albumin Globulin Ratio 1.3 (0.9-2); BUN Creatinine Ratio 8.3 (10-20); Calcium 9.6 mg/dl (8.6-10.3); Globulin 2.9 gm/dl (2.5-4.0); Potassium 3.7 mmol/L (3.5-5.1); Total Protein 6.8 gm/dl (6.0-8.3)
--- NOTE | 2025-01-23 14:07 | CT Scan Report ---
CT SCAN OF THE BRAIN WITHOUT IV CONTRAST CLINICAL HISTORY: Multiple falls. Confusion. COMPARISON STUDY: MRI of the brain January 04, 2024. Head CT November 03, 2024. TECHNIQUE: Unenhanced axial CT scan of the brain was performed from the vertex to the skull base. A dose lowering technique was utilized adhering to the principles of ALARA. CT DOSE: 688.24 mGy.cm FINDINGS: Brain parenchyma: No acute intracranial hemorrhage, midline shift or mass effect is present. Ware-whi te matter differentiation is preserved. There are no extra-axial fluid collections. There are no find ings to suggest acute dural sinus thrombosis or acute territorial infarct. Matter hypodensities are u nchanged and favor small vessel disease. Hypodensities within the inferior bilateral basal ganglia ar e unchanged. Ventricles, sulci, cisterns: There is no hydrocephalus. The basal cisterns are patent. Calvarium: There are no calvarial fractures. Sinuses and mastoids: Right sphenoid sinus air-fluid level is present. Overall, paranasal sinus opaci fication has improved when compared to prior CT. The mastoid air cells are well pneumatized. Orbits: The bony orbits are grossly intact. IMPRESSION: 1. No acute intracranial findings. No change in appearance of the brain. 2. No calvarial fractures. ACT 112: Negative or not required by law. Electronically signed by: Boris Keys M.D. 01/23/2025 2:05 PM
--- NOTE | 2025-01-23 14:26 | History & Physical Report ---
Date of Service January 23, 2025 Assessment & Plan (1) Complicated UTI (urinary tract infection): (2) Devlin catheter in place prior to arrival: (3) Confusion: (4) Dementia: (5) Hypertensive urgency: (6) Diarrhea: (7) Severe aortic stenosis: (8) Acute kidney injury superimposed on stage 3b chronic kidney disease: Plan Patient is a medically complex 79-year-old male with past medical history significant for adrenal insufficiency on chronic steroids, asthma/COPD, ANDRZEJ not on CPAP, history of DVT/PE s/p IVC filter placement on Eliquis, bladder cancer s/p surgery [off of Keytruda secondary to development of myocarditis], prostate cancer s/p radiation therapy, severe aortic stenosis, orthostatic hypotension, chronic anemia, mild cognitive impairment and dementia, ambulatory dysfunction [ambulates with a walker], chronic Devlin catheter placement complicated by recurrent UTIs, chronic venous insufficiency, CKD stage IIIb, history of VRE UTI and other medical problems listed below who presented to the ED via EMS due to concern for UTI. #Complicated UTI #Chronic Devlin catheter placement c/b recurrent UTIs -S/p IV Rocephin in ED -Continue IV Rocephin pending urine cx results -Order placed to exchange catheter -Continue home bladder relaxants #Confusion #Dementia -Suspect multifactorial ISO UTI, dementia -Head CT w/o any acute intracranial findings -Follow delirium precautions -? benefit from bedside sitter for reinforcement (hold off for now) -Obtain PT/OT evals as able #HTN urgency -? related to midodrine use -5mg IV hydralazine given in ED w/ BP improvement -PRN IV hydralazine 5mg Q4H for SBP>170 -Avoid judicious BP control given h/o orthostatic hypotension #Diarrhea -Suspect 2/2 recent heavy laxative use -Check stool studies as able, including C. diff #Severe aortic stenosis -Noted on TTE on 12/08/24 -Has been referred to outpatient valve clinic through [facility] #VIOLETA on CKD stage IIIb -Suspect 2/2 GI loss, poor oral intake -Encourage po intake -Gentle IVF ordered, 500mL NSS x 1 bag #Chronic anemia -Stable, continue iron supplementation #Adrenal insufficiency -Continue hydrocortisone, fludrocortisone #COPD -Chronic, stable -CXR unremarkable -Continue home inhalers #Orthostatic hypotension -Hold midodrine for now 2/2 HTN urgency as per above #History of DVT and PE s/p IVF filter placement -Continue Eliquis DVT Prophylaxis: Eliquis Code Status: FULL CODE Disposition: Admit to med/telemetry for further inpatient evaluation and management of the above conditions. Patient seen in collaboration with Dr. Dickerson. Please see addendum. I spent a total of 68 minutes coordinating, documenting, and providing care for this patient excluding time spent in the performance of separately billed services or time spent by another provider/QHP. This included personally reviewing all current laboratories and imaging studies, medical reconciliation, outpatient chart review and discussion with specialists. This chart was completed in part utilizing Speech Voice Recognition Software. Grammatical errors, random word insertions, pronoun errors, and incomplete sentences are an occasional consequence of this system due to software limitations, ambient noise, and hardware issues. Any formal questions or concerns about the content, text, or information contained within the body of this dictation should be directly addressed to the provider for clarification. History of Present Illness Chief Complaint: Concern for UTI development Primary Care Provider: Deondre Hill MD Patient is a medically complex 79-year-old male with past medical history significant for adrenal insufficiency on chronic steroids, asthma/COPD, ANDRZEJ not on CPAP, history of DVT/PE s/p IVC filter placement on Eliquis, bladder cancer s/p surgery [off of Keytruda secondary to development of myocarditis], prostate cancer s/p radiation therapy, severe aortic stenosis, orthostatic hypotension, chronic anemia, mild cognitive impairment and dementia, ambulatory dysfunction [ambulates with a walker], chronic Devlin catheter placement complicated by recurrent UTIs, chronic venous insufficiency, CKD stage IIIb, history of VRE UTI and other medical problems listed below who presented to the ED via EMS due to concern for UTI. History obtained from the patient, discussion with patient's over the phone, discussion with ED provider and associated chart review. This is the patient's sixth admission of the year since August 2024. Most recent confinement under service last month, 12/19/24-12/28/24, for multiple issues including fall/ambulatory dysfunction, complicated UTI and finding of severe aortic stenosis on updated TTE. Urine culture at the time grew E. coli with resistance to ampicillin, Unasyn, ciprofloxacin, levofloxacin and Bactrim. Blood cultures were negative. There was some initial concern regarding possible pubic osteomyelitis on imaging last admission however this was ruled out via bone marrow biopsy which showed no microscopic evidence of osteonecrosis or osteomyelitis. Changes on imaging thought were thought to be likely secondary to prior radiation therapy for prostate cancer. Patient seen and evaluated in the outpatient cardiology clinic at [facility] on 01/19/25. He was referred to the valve clinic due to his severe aortic stenosis, although given his medical complexity, there is a possibility he may not be a candidate for replacement per documentation from that visit. He has yet to seen the valve clinic. Patient reportedly with a fall at home on 01/21/25 with no reported injuries. Did not strike head. EMS was called following this event for lift assist however patient was not evaluated in the ED at that time. Patient is currently established with [facility] services. Per , patient was "horribly confused" last evening and overnight. He was unable to recognize her, seemed extremely anxious and did not recall where he was. He received a dose of BuSpar before this change in mentation/behavior occurred. concerned he was developing a UTI as he has presented in similar fashion with prior UTIs. He reportedly hadn't had a BM in about a week as of 2 days ago therefore he was started on stool softeners/stimulant laxatives. admits that he had "explosive diarrhea" last evening and again overnight into this morning. No reported fevers at home but does report chills. Mentions he is "always cold." She also noticed that the top of his feet seem more swollen this morning. Appetite grossly unchanged. Did not eat any breakfast this morning. Devlin catheter last changed on 01/03/25 at [facility] during cystoscopy per . Reportedly had a larger catheter placed and was still have some urine leaking around the catheter, which has been an ongoing issue (thought to be secondary to bladder spasms per prior documentation). according to his , he is not scheduled for catheter replacement until 01/31/25. Allergies Allergy/AdvReac Type Severity Reaction Status Date / Time Iodinated Contrast Media Allergy Severe LOVERSOL---CARDIAC Verified 11/12/24 20:[address] CONTRAST clindamycin Allergy Intermediate Rash Verified 11/12/24 20:27 cranberry Allergy Unknown Unknown Verified 11/12/24 20:27 caffeine Allergy Verified 11/13/24 15:45 chocolate flavor AdvReac Severe DIARRHEA/ Verified 11/12/24 20:27 Cannot take, interacts w/ medications. pembrolizumab [From Cydan] AdvReac Intermediate myocarditis Verified 11/12/24 20:27 Home Medications Medication Instructions Recorded Confirmed Type acetaminophen 325 mg tablet 650 mg (2 x 325 mg) PO Q4H PRN 06/08/24 01/23/25 Rx fever or pain #30 tabs ascorbic acid (vitamin C) 1,000 mg 1,000 mg PO DAILY #30 tabs 06/08/24 01/23/25 Rx tablet cholecalciferol (vitamin D3) 125 125 mcg PO DAILY #30 tabs 06/08/24 01/23/25 Rx mcg (5,000 unit) tablet (Vitamin D3) cyanocobalamin (vitamin B-12) 1,000 mcg PO DAILY #30 tabs 06/08/24 01/23/25 Rx 1,000 mcg tablet epinephrine 0.3 mg/0.3 mL 0.3 mg (0.3 mL) IM UD PRN 06/08/24 01/23/25 Rx injection, auto-injector Anaphylaxis #3 ea fluticasone fur. 200 mcg-umeclid 1 inh inhalation DAILY #1 ea 06/08/24 01/23/25 Rx 62.5 mcg-vilant 25 mcg inhalat.powder (Trelegy Ellipta) lidocaine 5 % topical patch 2 patch transdermal DAILY #20 ea 06/08/24 01/23/25 Rx memantine 10 mg tablet 10 mg PO BID #60 tabs 06/08/24 01/23/25 Rx multivitamin with minerals-folic 1 tab PO DAILY #30 tabs 06/08/24 01/23/25 Rx acid 200 mcg chewable tablet (Multivitamin Gummies) omeprazole 20 mg capsule,delayed 20 mg PO DAILY #30 caps 06/08/24 01/23/25 Rx release solifenacin 5 mg tablet 5 mg PO DAILY #30 tabs 06/08/24 01/23/25 Rx hydrocortisone 10 mg tablet 20 mg (2 x 10 mg) PO QAM #0 tabs 07/07/24 01/23/25 Rx (Cortef) albuterol sulfate 90 mcg/actuation 2 puff inhalation Q6H PRN 08/21/24 01/23/25 History aerosol inhaler Shortness Of Breath Or Wheezing fludrocortisone 0.1 mg tablet 0.1 mg PO DAILY 08/21/24 01/23/25 History ferrous sulfate 325 mg (65 mg 325 mg PO 3XWK 11/03/24 01/23/25 History iron) tablet,delayed release hydrocortisone 10 mg tablet 10 mg PO .DAILY @ 1500 11/03/24 01/23/25 History (Cortef) magnesium chloride 64 mg 64 mg PO DAILY 11/03/24 01/23/25 History (magnesium chloride) tablet,delayed release apixaban 2.5 mg tablet (Eliquis) 2.5 mg PO BID #60 tabs 11/16/24 01/23/25 Rx buspirone 5 mg tablet 5 mg PO TID #90 tabs 12/28/24 01/23/25 Rx midodrine 2.5 mg tablet 2.5 mg PO TID@0800,1200,1700 #90 12/28/24 01/23/25 Rx tabs mirabegron 50 mg tablet,extended 50 mg PO DAILY #30 tabs 12/28/24 01/23/25 Rx release 24 hr thiamine HCl (vitamin B1) 100 mg 100 mg PO QAM #30 tabs 12/28/24 01/23/25 Rx tablet Past Med/Surg History Problem List (Updated 01/23/25 @ 18:59 by Bess Crandall PA-C) Acute kidney injury superimposed on stage 3b chronic kidney disease Diarrhea Hypertensive urgency Devlin catheter in place prior to arrival Complicated UTI (urinary tract infection) Chronic osteomyelitis of symphysis pubis History of prostate cancer Osteomyelitis Severe aortic stenosis Hypoxia Orthostatic hypotension Fall (Acute) Elevated lactic acid level (Acute) Complicated urinary tract infection (Acute) Hypertension History of DVT (deep vein thrombosis) hx "many years ago" unknown etiology acute on chronic DVT during 12/2022 [facility] admission- Coumadin d/c'ed due to anemia and hematuria; IVC filter placed 12/28/22 COPD (chronic obstructive pulmonary disease) Anemia Urinary tract infection associated with indwelling urethral catheter (Acute) Confusion (Acute) Dementia (Acute) Mild cognitive impairment (Acute) Obstructive sleep apnea (Acute) Adrenal insufficiency (Acute 06/04/14) Stage 3 chronic kidney disease (Acute) History of pulmonary embolism hx "many years ago" unknown etiology Aortic stenosis Severe per 12/08/2024 ECHO Medical History Fall from chair, initial encounter Ambulatory dysfunction VRE (vancomycin-resistant Enterococci) Cellulitis Cellulitis of right leg Acute UTI Aspiration pneumonia Chronic indwelling Devlin catheter Complicated urinary tract infection Acute kidney injury superimposed on chronic kidney disease Parainfluenza infection Influenza A (H1N1) Acute hypokalemia Delirium Chronic indwelling Devlin catheter Bladder cancer Weakness Recurrent UTI Anxiety Elevated blood pressure reading Complicated UTI (urinary tract infection) Myocarditis Primary bladder malignant neoplasm Coagulopathy Fracture of multiple teeth Sacral pressure sore Urethral stricture Ascending aorta dilation Mild- 4.4cm per 11/2022 ECHO Obesity Venous insufficiency (chronic) (peripheral) Radiation cystitis Kidney stones x1 episode. no surgery needed. Cardiac arrest hx r/t IV Contrast Dye "many years ago" Allergic rhinitis Contrast media allergy Hiatal hernia Surgical History S/P IVC filter S/P cataract extraction History of right cataract extraction History of colonoscopy H/O sinus surgery History of appendectomy S/P TURP (status post transurethral resection of prostate) Status post cystoscopy (11/07/13) Family History Father Prostate cancer Brother Prostate cancer Mother Thyroid cancer Cancer Other No family history of adverse response to anesthesia Social History Smoking Status: Never smoker Second Hand Exposure: No; Do You Dip or Chew Tobacco: No; Hx Alcohol Use: No Hx Substance Use: No Preferred Language: Czech Communication Ability: Effective Visual Impairment: Limited Hearing Ability: Normal Consumer Affairs Director Required: No Beliefs That Will Affect Care: None marital status: Current Living Situation: Spouse Current Living Situation Comment: Jen current occupational status: retired How many Children do You have: 0 Other Information That Helps Us Care for You: No Feels Safe at Home: Yes Safety Concerns: Feels Safe At This Time Diet: regular during the past year weight has: decreased > 10 lbs Seatbelt Use: always Do you think of yourself as: straight/heterosexual Gender Identity: Male Assistive Devices: Walker Review of Systems Review of Systems: At least ten systems reviewed and negative, except as noted in the HPI. Physical Exam Physical Exam: Please refer to Dr. Dickerson's addendum for physical examination findings. Results & Data Results & Data Vital Signs (Past 12 Hours) Vital Signs Temp Pulse Resp BP Pulse Ox O2 Del Method 01/23/25 12:37 99 Room Air 01/23/25 11:35 71 01/23/25 11:12 36.7 C 74 16 180/100 H 100 Room Air Laboratory Results Short CBC 01/23/25 Range/Units 11:20 WBC 6.86 (4.8-10.8) K/ul Hgb 12.7 L (14.0-18.0) g/dl Hct 38.0 L (42.0-52.0) % Plt Count 247 (130-400) K/uL BMP 01/23/25 11:20 Sodium 141 Potassium 3.7 Chloride 107 Carbon Dioxide 22 BUN 12 Creatinine 1.44 H Glucose 93 Calcium 9.6 Liver Function 01/23/25 Range/Units 11:20 Total Bilirubin 1.0 (0.2-1.0) mg/dl AST 13 (13-39) U/L ALT 8 (7-52) U/L Alkaline Phosphatase 112 H (34-104) U/L Albumin 3.9 (3.4-5.0) gm/dl Urine 01/23/25 Range/Units 12:13 Urine Color Yellow Urine Appearance Clear (Clear) Urine pH 8.5 H (4.5-7.5) Ur Specific [place] 1.008 (1.000-1.030) Urine Protein 1+ H (Negative) Urine Glucose (UA) Negative (Negative) Diagnostic Findings Chest X-Ray 01/23/25 11:50 XR chest 1V portable CLINICAL HISTORY: syncope COMPARISON STUDY: 12/19/2024 FINDINGS: Stable mild cardiomegaly without a vascular congestion. Stable mild stranding opacity at the left lung base. No new consolidation or pleural effusion seen. No pneumothorax. IMPRESSION: No acute findings. ACT 112: Negative or not required by law. Electronically signed by: Hawk Hensley M.D. 01/23/2025 12:[address] 01/23/25 13:15 CT SCAN OF THE BRAIN WITHOUT IV CONTRAST CLINICAL HISTORY: Multiple falls. Confusion. COMPARISON STUDY: MRI of the brain January 04, 2024. Head CT November 03, 2024. TECHNIQUE: Unenhanced axial CT scan of the brain was performed from the vertex to the skull base. A dose lowering technique was utilized adhering to the principles of ALARA. CT DOSE: 688.24 mGy.cm FINDINGS: Brain parenchyma: No acute intracranial hemorrhage, midline shift or mass effect is present. Ware-white matter differentiation is preserved. There are no extra- axial fluid collections. There are no findings to suggest acute dural sinus thrombosis or acute territorial infarct. Matter hypodensities are unchanged and favor small vessel disease. Hypodensities within the inferior bilateral basal ganglia are unchanged. Ventricles, sulci, cisterns: There is no hydrocephalus. The basal cisterns are patent. Calvarium: There are no calvarial fractures. Sinuses and mastoids: Right sphenoid sinus air-fluid level is present. Overall, paranasal sinus opacification has improved when compared to prior CT. The m astoid air cells are well pneumatized. Orbits: The bony orbits are grossly intact. IMPRESSION: 1. No acute intracranial findings. No change in appearance of the brain. 2. No calvarial fractures. ACT 112: Negative or not required by law. Electronically signed by: Boris Keys M.D. 01/23/2025 2:05 PM Medications Administered Discontinued Medications Ceftriaxone Sodium (Rocephin) 2,000 mg in 50 mls @ 100 mls/hr IV NOW STA Stop: 01/23/25 14:40 Last Admin: 01/23/25 14:46 Dose: 100 mls/hr Documented By: MWS Code Status & VTE Plan Code Status FULL CODE Supervising Physician Co-Signing Physician Notes 79-year-old male with PMH of recurrent UTI, Devlin catheter in situ, DVT/PE status post IVC filter/on Eliquis, bladder cancer status post surgery [off of K eytruda secondary to development of myocarditis], prostate cancer status post radiation therapy and other various chronic / complex medical conditions presents to the ED with complaint of worsening mentation and cloudy/increased sediment in the urine for 1 day. Patient also noted to have loose stool last evening and fever this morning. Patient also had fall 2 days ago while trying to get up from the bed, reports landing on his buttock, denies hitting head or loss of consciousness. Complicated UTI, CAUTI: Continue with Rocephin, follow admitting urine culture. Exchange Devlin. Metabolic encephalopathy: In the setting of dementia, likely exacerbated by UTI. Delirium precaution. CT Head w no acute findings. Continue with BuSpar for anxiety. Continue to monitor. Diarrhea: Noted to have loose stool last evening likely in the setting of excessive stool softener/laxative use due to patient not having bowel for about a week prior to this. Will continue to monitor. On exam: GENERAL: Oriented x 3, confused/anxious more than his baseline while at bedside exam. NAD, on RA. Anxious/ill appearing. HEENT: No pallor, no icterus. Pupils equal, round and reactive to light. Oral mucosa moist. NECK: No JVD, no neck masses. HEART: S1 and S2 heard. Regular rate and rhythm. No murmur, no gallop. RESPIRATORY SYSTEM: Normal AP diameter. No accessory muscle use. No wheezing, no crackles. ABDOMEN: Soft, bowel sounds present, nontender, no distention. CENTRAL NERVOUS SYSTEM: No facial droop. Speech is clear. Obeys simple commands. Moves extremities. EXTREMITIES: R> L 1-2+ ble edema, no erythema seen. I have seen and examined the patient and have discussed the case with the provider above. I agree with the assessment and plan as stated. Time spent independently: 25 min. (4) Dementia Dementia behavioral or psychological symptom: unspecified whether behavioral, psychotic, or mood disturbance or anxiety Dementia severity: unspecified severity Dementia type: unspecified type Qualified Code(s): F03.90 - Unspecified dementia, unspecified severity, without behavioral disturbance, psychotic disturbance, mood disturbance, and anxiety (6) Diarrhea Diarrhea type: unspecified type Qualified Code(s): R19.7 - Diarrhea, unspecified
[2025-01-23] MEDS: cefTRIAXone SODIUM 2,000 MG/50 ML BAG IV STA (14:46)
--- NOTE | 2025-01-23 15:31 | Emergency Department Note ---
Impression & Plan Urinary tract infection associated with indwelling urethral catheter, Fall, Confusion ED Provider Note NAME: EDWIN ESPANA AGE: 79 SEX: M : 1945 ARRIVES VIA: Ambulance INFORMANT: Patient, ED PROVIDER(S): Ilan Gramajo MD CHIEF COMPLAINT: Fall HPI: This is a 79-year-old male presenting for fall and syncope. Patient was sent here by home health nurse as well as due to concerns of UTI. Patient himself states that he had a fall about 4 days ago. He was having diarrhea over the last 2 to 4 days as syncopal episode about 4 days ago. He is not member striking his head. He otherwise has a chronic Devlin. He is unsure if this has been infected before. He reports no nausea, vomiting, diarrhea currently. No chest pain or shortness of breath. ROS: See above HPI for pertinent positives & negatives. A total of 10 systems reviewed and were otherwise negative. PAST MEDICAL HISTORY: See Below PAST SURGICAL HISTORY: See Below FAMILY HISTORY: See Below SOCIAL HISTORY: See Below HOME MEDICATIONS: See Below ALLERGIES: See Below VITALS: See Below PHYSICAL EXAMINATION: General: Chronically unwell appearing Head: Normocephalic and atraumatic Eyes: Normal inspection, extraocular muscles intact Ear, nose, throat: Normal external exam Neck: Normal range of motion Respiratory: lungs clear to auscultation bilaterally Cardiovascular: Regular rate/rhythm, no murmur GI: soft, nontender, no guarding or rebound Extremities: nontender, moves all extremities Neuro: The patient awake and alert, appropriately conversive, no focal deficits, symmetric faces Skin: Warm, dry, and intact MEDICAL DECISION MAKING: This is a 79-year-old male presenting for fall/syncope. Patient presenting by home health nurse/ for concerns of UTI. Will do syncope and UTI workup. Urinalysis reveals signs of UTI. - CT head ordered for possible trauma due to fall. No external signs of trauma however. - CT head currently negative for intracranial process - Labs reviewed showing hemoglobin 12.7, otherwise no leukocytosis. Creatinine 1.44 -Troponin nonelevated. -Due to patient's confusion, does feel unsafe with him at home concerned he may fall again. Will admit the patient at this time for UTI, fall and confusion. Differential diagnosis: UTI, gastroenteritis, sepsis, ACS Diagnostics interpreted by me: ECG: ECG independently interpreted by me with normal sinus rhythm, rate of 70, normal [place], normal QRS, normal QTc, no ST segment elevations consistent with STEMI criteria Cardiac Monitoring: An order was placed for continuous cardiac monitoring. The monitor shows a rate of 75 with sinus rhythm. Past Med/Surg History Problem List (Updated 01/23/25 @ 16:53 by Ilan Gramajo MD) Devlin catheter in place prior to arrival Complicated UTI (urinary tract infection) Chronic osteomyelitis of symphysis pubis History of prostate cancer Osteomyelitis Severe aortic stenosis Hypoxia Orthostatic hypotension Fall (Acute) Elevated lactic acid level (Acute) Complicated urinary tract infection (Acute) Hypertension History of DVT (deep vein thrombosis) hx "many years ago" unknown etiology acute on chronic DVT during 12/2022 [facility] admission- Coumadin d/c'ed due to anemia and hematuria; IVC filter placed 12/28/22 COPD (chronic obstructive pulmonary disease) Anemia Urinary tract infection associated with indwelling urethral catheter (Acute) Confusion (Acute) Dementia (Acute) Mild cognitive impairment (Acute) Obstructive sleep apnea (Acute) Adrenal insufficiency (Acute 06/04/14) Stage 3 chronic kidney disease (Acute) History of pulmonary embolism hx "many years ago" unknown etiology Aortic stenosis Severe per 12/08/2024 [facility] Medical History Fall from chair, initial encounter Ambulatory dysfunction VRE (vancomycin-resistant Enterococci) Cellulitis Cellulitis of right leg Acute UTI Aspiration pneumonia Chronic indwelling Devlin catheter Complicated urinary tract infection Acute kidney injury superimposed on chronic kidney disease Parainfluenza infection Influenza A (H1N1) Acute hypokalemia Delirium Chronic indwelling Devlin catheter Bladder cancer Weakness Recurrent UTI Anxiety Elevated blood pressure reading Complicated UTI (urinary tract infection) Myocarditis Primary bladder malignant neoplasm Coagulopathy Fracture of multiple teeth Sacral pressure sore Urethral stricture Ascending aorta dilation Mild- 4.4cm per 11/2022 [facility] Obesity Venous insufficiency (chronic) (peripheral) Radiation cystitis Kidney stones x1 episode. no surgery needed. Cardiac arrest hx r/t IV Contrast Dye "many years ago" Allergic rhinitis Contrast media allergy Hiatal hernia Surgical History S/P IVC filter S/P cataract extraction History of right cataract extraction History of colonoscopy H/O sinus surgery History of appendectomy S/P TURP (status post transurethral resection of prostate) Status post cystoscopy (11/07/13) Family History Father Prostate cancer Brother Prostate cancer Mother Thyroid cancer Cancer Other No family history of adverse response to anesthesia Social History Smoking Status: Never smoker Second Hand Exposure: No; Do You Dip or Chew Tobacco: No; Hx Alcohol Use: Yes Alcohol type: beer Alcohol Intake Frequency: Monthly or Less Hx Substance Use: No Preferred Language: Togolese Communication Ability: Effective Visual Impairment: Limited Hearing Ability: Normal Core Setter Required: No Beliefs That Will Affect Care: Congregational marital status: Current Living Situation: Spouse Current Living Situation Comment: [facility] current occupational status: retired How many Children do You have: 0 Feels Safe at Home: Yes Diet: regular during the past year weight has: decreased > 10 lbs Seatbelt Use: always Do you think of yourself as: straight/heterosexual Gender Identity: Male Assistive Devices: Bedside Commode, Hospital Bed and Walker Allergies Allergies Allergy/AdvReac Type Severity Reaction Status Date / Time Iodinated Contrast Media Allergy Severe LOVERSOL---CARDIAC Verified 11/12/24 20:[address] CONTRAST clindamycin Allergy Intermediate Rash Verified 11/12/24 20:27 cranberry Allergy Unknown Unknown Verified 11/12/24 20:27 caffeine Allergy Verified 11/13/24 15:45 chocolate flavor AdvReac Severe DIARRHEA/ Verified 11/12/24 20:27 Cannot take, interacts w/ medications. pembrolizumab [From [employer]] AdvReac Intermediate myocarditis Verified 11/12/24 20:27 Home Meds Home Medications Medication Instructions Recorded Confirmed albuterol sulfate 90 mcg/actuation 2 puff inhalation Q6H PRN 08/21/24 01/23/25 aerosol inhaler Shortness Of Breath Or Wheezing fludrocortisone 0.1 mg tablet 0.1 mg PO DAILY 08/21/24 01/23/25 ferrous sulfate 325 mg (65 mg 325 mg PO 3XWK 11/03/24 01/23/25 iron) tablet,delayed release hydrocortisone 10 mg tablet 10 mg PO .DAILY @ 1500 11/03/24 01/23/25 (Cortef) magnesium chloride 64 mg 64 mg PO DAILY 11/03/24 01/23/25 (magnesium chloride) tablet,delayed release Previous Rx's Medication Instructions Recorded acetaminophen 325 mg tablet 650 mg (2 x 325 mg) PO Q4H PRN 06/08/24 fever or pain #30 tabs ascorbic acid (vitamin C) 1,000 mg 1,000 mg PO DAILY #30 tabs 06/08/24 tablet cholecalciferol (vitamin D3) 125 125 mcg PO DAILY #30 tabs 06/08/24 mcg (5,000 unit) tablet (Vitamin D3) cyanocobalamin (vitamin B-12) 1,000 mcg PO DAILY #30 tabs 06/08/24 1,000 mcg tablet epinephrine 0.3 mg/0.3 mL 0.3 mg (0.3 mL) IM UD PRN 06/08/24 injection, auto-injector Anaphylaxis #3 ea fluticasone fur. 200 mcg-umeclid 1 inh inhalation DAILY #1 ea 06/08/24 62.5 mcg-vilant 25 mcg inhalat.powder (Trelegy Ellipta) lidocaine 5 % topical patch 2 patch transdermal DAILY #20 ea 06/08/24 memantine 10 mg tablet 10 mg PO BID #60 tabs 06/08/24 multivitamin with minerals-folic 1 tab PO DAILY #30 tabs 06/08/24 acid 200 mcg chewable tablet (Multivitamin Gummies) omeprazole 20 mg capsule,delayed 20 mg PO DAILY #30 caps 06/08/24 release solifenacin 5 mg tablet 5 mg PO DAILY #30 tabs 06/08/24 hydrocortisone 10 mg tablet 20 mg (2 x 10 mg) PO QAM #0 tabs 07/07/24 (Cortef) apixaban 2.5 mg tablet (Eliquis) 2.5 mg PO BID #60 tabs 11/16/24 buspirone 5 mg tablet 5 mg PO TID #90 tabs 12/28/24 midodrine 2.5 mg tablet 2.5 mg PO TID@0800,1200,1700 #90 12/28/24 tabs mirabegron 50 mg tablet,extended 50 mg PO DAILY #30 tabs 12/28/24 release 24 hr thiamine HCl (vitamin B1) 100 mg 100 mg PO QAM #30 tabs 12/28/24 tablet Results & Data (ED) Vital Signs Vital Signs - 24 hr 01/23/25 11:12 01/23/25 11:21 01/23/25 11:35 Temperature 36.7 C Temperature Source Oral Pulse Rate 74 73 71 Pulse Rate [Right Finger] Pulse Rate from SpO2 Sensor Respiratory Rate 16 18 Respiratory Effort / Characteristics Non-Labored Spontaneous Respiratory Depth Normal Blood Pressure 180/100 H Blood Pressure [Right Arm] Blood Pressure Mean 126 Blood Pressure Mean [Right Arm] Pulse Oximetry 100 Oxygen Delivery Method Room Air Sepsis Recent Fever Within 48 Hours No Sepsis New/Unexplained Change in Mental Status Yes Sepsis Action Taken by Nursing No Action Required 01/23/25 11:45 01/23/25 12:00 01/23/25 12:15 Temperature Temperature Source Pulse Rate 70 64 Pulse Rate [Right Finger] Pulse Rate from SpO2 Sensor 70 64 Respiratory Rate 19 15 Respiratory Effort / Characteristics Respiratory Depth Blood Pressure 171/90 H Blood Pressure [Right Arm] Blood Pressure Mean 114 Blood Pressure Mean [Right Arm] Pulse Oximetry 98 100 Oxygen Delivery Method Sepsis Recent Fever Within 48 Hours Sepsis New/Unexplained Change in Mental Status Sepsis Action Taken by Nursing 01/23/25 12:37 01/23/25 12:57 01/23/25 13:00 Temperature Temperature Source Pulse Rate 63 Pulse Rate [Right Finger] Pulse Rate from SpO2 Sensor 63 Respiratory Rate 16 Respiratory Effort / Characteristics Respiratory Depth Blood Pressure 175/86 H Blood Pressure [Right Arm] Blood Pressure Mean 136 Blood Pressure Mean [Right Arm] Pulse Oximetry 99 99 Oxygen Delivery Method Room Air Sepsis Recent Fever Within 48 Hours Sepsis New/Unexplained Change in Mental Status Sepsis Action Taken by Nursing 01/23/25 13:03 01/23/25 13:30 01/23/25 13:30 Temperature Temperature Source Pulse Rate 65 65 Pulse Rate [Right Finger] Pulse Rate from SpO2 Sensor 64 Respiratory Rate 20 20 Respiratory Effort / Characteristics Respiratory Depth Blood Pressure 183/85 H Blood Pressure [Right Arm] Blood Pressure Mean 118 Blood Pressure Mean [Right Arm] Pulse Oximetry 100 Oxygen Delivery Method Sepsis Recent Fever Within 48 Hours Sepsis New/Unexplained Change in Mental Status Sepsis Action Taken by Nursing 01/23/25 14:00 01/23/25 14:00 01/23/25 14:30 Temperature Temperature Source Pulse Rate 71 83 Pulse Rate [Right Finger] Pulse Rate from SpO2 Sensor Respiratory Rate 19 20 Respiratory Effort / Characteristics Respiratory Depth Blood Pressure 194/99 H Blood Pressure [Right Arm] Blood Pressure Mean 136 Blood Pressure Mean [Right Arm] Pulse Oximetry Oxygen Delivery Method Sepsis Recent Fever Within 48 Hours Sepsis New/Unexplained Change in Mental Status Sepsis Action Taken by Nursing 01/23/25 14:31 01/23/25 15:32 01/23/25 16:45 Temperature Temperature Source Pulse Rate Pulse Rate [Right Finger] 79 102 H Pulse Rate from SpO2 Sensor Respiratory Rate 22 18 Respiratory Effort / Characteristics Non-Labored Spontaneous Non-Labored Spontaneous Respiratory Depth Normal Normal Blood Pressure 184/109 H Blood Pressure [Right Arm] 200/98 H 190/119 H Blood Pressure Mean 123 Blood Pressure Mean [Right Arm] 132 142 Pulse Oximetry 100 95 Oxygen Delivery Method Room Air Room Air Sepsis Recent Fever Within 48 Hours Sepsis New/Unexplained Change in Mental Status Sepsis Action Taken by Nursing Laboratory Data 01/23/25 11:20 01/23/25 11:20 Lab Results 01/23/25 01/23/25 Range/Units 11:20 12:13 WBC 6.86 (4.8-10.8) K/ul RBC 4.34 L (4.70-6.10) M/uL Hgb 12.7 L (14.0-18.0) g/dl Hct 38.0 L (42.0-52.0) % MCV 87.6 (80.0-100.0) fL MCH 29.3 (25.0-34.0) pg MCHC 33.4 (32.0-36.0) g/dL RDW Std Deviation 49.0 H (36.4-46.3) fL RDW Coeff of Robert 15.4 H (11.5-14.5) % Plt Count 247 (130-400) K/uL MPV 9.3 L (9.4-12.4) fL Immature Gran % (Auto) 0.1 % Neut % (Auto) 60.3 % Lymph % (Auto) 28.3 % [place] % (Auto) 7.6 % Eos % (Auto) 3.1 % Baso % (Auto) 0.6 % Neut # (Auto) 4.14 (1.40-6.50) K/uL Lymph # (Auto) 1.94 (1.20-3.40) K/uL [place] # (Auto) 0.52 (0.11-0.59) K/uL Eos # (Auto) 0.21 (0.00-0.50) K/uL Baso # (Auto) 0.04 (0.00-0.20) K/uL Immature Gran # (Auto) 0.01 (0.01-0.20) K/uL Sodium 141 (136-145) mmol/L Potassium 3.7 (3.5-5.1) mmol/L Chloride 107 (98-107) mmol/L Carbon Dioxide 22 (21-32) mmol/L Anion Gap 12 H (3-11) BUN 12 (6-23) mg/dl Creatinine 1.44 H (0.6-1.4) mg/dl Est Cr Clr Drug Dosing 54.5 ml/min eGFR 49.74 BUN/Creatinine Ratio 8.3 L (10-20) Glucose 93 (70-99(Fasting)) mg/dl Calcium 9.6 (8.6-10.3) mg/dl Total Bilirubin 1.0 (0.2-1.0) mg/dl AST 13 (13-39) U/L ALT 8 (7-52) U/L Alkaline Phosphatase 112 H (34-104) U/L Troponin I High Sens 6.0 (0-20) pg/ml Total Protein 6.8 (6.0-8.3) gm/dl Albumin 3.9 (3.4-5.0) gm/dl Globulin 2.9 (2.5-4.0) gm/dl Albumin/Globulin Ratio 1.3 (0.9-2) Lipase 9 L (11-82) U/L Urine Color Yellow Urine Appearance Clear (Clear) Urine pH 8.5 H (4.5-7.5) Ur Specific [place] 1.008 (1.000-1.030) Urine Protein 1+ H (Negative) Urine Glucose (UA) Negative (Negative) Urine Ketones Trace H (Negative) Urine Blood Trace H (Negative) Urine Nitrite Positive A (Negative) Urine Bilirubin Negative (Negative) Urine Urobilinogen Negative (Negative) Ur Leukocyte Esterase 3+ H (Negative) Urine WBC (Auto) >50 H (0-5) /hpf Urine RBC (Auto) 3-5 H (0-2) /hpf U Hyaline Cast (Auto) 0-2 (0-2) /lpf U Epithel Cells (Auto) 0-2 (0-2) /hpf Urine Bacteria (Auto) 4+ H (None Seen) Urine Comment Administered Medications Discontinued Medications Hydralazine HCl (Hydralazine Hcl 20 Mg/Ml Vial) 5 mg IV NOW ONE Stop: 01/23/25 15:51 Last Admin: 01/23/25 15:58 Dose: 5 mg Documented By: SHOAIB Ceftriaxone Sodium (Rocephin) 2,000 mg in 50 mls @ 100 mls/hr IV NOW STA Stop: 01/23/25 14:40 Last Infusion: 01/23/25 15:34 Dose: Infused Documented By: Admin: 01/23/25 14:46 Dose: 100 mls/hr Documented By: ANJELICA Imaging Data Radiologist's Impression: Chest X-Ray 01/23/25 11:50 XR chest 1V portable CLINICAL HISTORY: syncope COMPARISON STUDY: 12/19/2024 FINDINGS: Stable mild cardiomegaly without a vascular congestion. Stable mild stranding opacity at the left lung base. No new consolidation or pleural effusion seen. No pneumothorax. IMPRESSION: No acute findings. ACT 112: Negative or not required by law. Electronically signed by: Hawk Hensley M.D. 01/23/2025 12:[address] 01/23/25 13:15 CT SCAN OF THE BRAIN WITHOUT IV CONTRAST CLINICAL HISTORY: Multiple falls. Confusion. COMPARISON STUDY: MRI of the brain January 04, 2024. Head CT November 03, 2024. TECHNIQUE: Unenhanced axial CT scan of the brain was performed from the vertex to the skull base. A dose lowering technique was utilized adhering to the principles of ALARA. CT DOSE: 688.24 mGy.cm FINDINGS: Brain parenchyma: No acute intracranial hemorrhage, midline shift or mass effect is present. Ware-white matter differentiation is preserved. There are no extra- axial fluid collections. There are no findings to suggest acute dural sinus thrombosis or acute territorial infarct. Matter hypodensities are unchanged and favor small vessel disease. Hypodensities within the inferior bilateral basal ganglia are unchanged. Ventricles, sulci, cisterns: There is no hydrocephalus. The basal cisterns are patent. Calvarium: There are no calvarial fractures. Sinuses and mastoids: Right sphenoid sinus air-fluid level is present. Overall, paranasal sinus opacification has improved when compared to prior CT. The mastoid air cells are well pneumatized. Orbits: The bony orbits are grossly intact. IMPRESSION: 1. No acute intracranial findings. No change in appearance of the brain. 2. No calvarial fractures. ACT 112: Negative or not required by law. Electronically signed by: Boris Keys M.D. 01/23/2025 2:05 PM Discharge Plan Visit Data Chief Complaint: Urinary Symptoms ED Provider: Ilan Gramajo Discharge Problem: Urinary tract infection associated with indwelling urethral catheter, Fall, Confusion Patient Disposition: Admitted As Inpatient Condition: Fair Forms Stand Alone Forms: My [facility] Prescriptions Prescriptions: No Action hydrocortisone [Cortef] 10 mg tablet 20 mg PO QAM Qty: 0 0RF hydrocortisone [Cortef] 10 mg tablet 10 mg PO .DAILY @ 1500 Rx Instructions: TAKES 20mg in am. and 10mg at 1500 ferrous sulfate 325 mg (65 mg iron) tablet,delayed release (DR/EC) 325 mg PO 3XWK Rx Instructions: MON, WED, & FRI. magnesium chloride 64 mg tablet,delayed release (DR/EC) 64 mg PO DAILY midodrine 2.5 mg Tablet 2.5 mg PO TID@0800,1200,1700 Qty: 90 1RF buspirone 5 mg Tablet 5 mg PO TID Qty: 90 1RF thiamine HCl (vitamin B1) 100 mg Tablet 100 mg PO QAM Qty: 30 1RF mirabegron 50 mg tablet extended release 24 hr 50 mg PO DAILY Qty: 30 1RF acetaminophen 325 mg Tablet 650 mg PO Q4H PRN (Reason: fever or pain) Qty: 30 0RF memantine 10 mg Tablet 10 mg PO BID Qty: 60 0RF lidocaine 5 % Adhesive Patch,Medicated 2 patch transdermal DAILY Qty: 20 0RF ascorbic acid (vitamin C) 1,000 mg Tablet 1,000 mg PO DAILY Qty: 30 0RF cyanocobalamin (vitamin B-12) 1,000 mcg Tablet 1,000 mcg PO DAILY Qty: 30 0RF omeprazole 20 mg capsule,delayed release(DR/EC) 20 mg PO DAILY Qty: 30 0RF epinephrine 0.3 mg/0.3 mL Auto-Injector 0.3 mg IM UD PRN (Reason: Anaphylaxis) Qty: 3 0RF Rx Instructions: prn anaphylaxis solifenacin 5 mg tablet 5 mg PO DAILY Qty: 30 0RF cholecalciferol (vitamin D3) [Vitamin D3] 125 mcg (5,000 unit) Tablet 125 mcg PO DAILY Qty: 30 0RF multivit with min-folic acid [Multivitamin Gummies] 200 mcg Tablet,Chewable 1 tab PO DAILY Qty: 30 0RF Trelegy Ellipta 200-62.5-25 mcg blister with device 1 inh INHALATION DAILY Qty: 1 0RF albuterol sulfate 90 mcg/actuation HFA aerosol inhaler 2 puff INHALATION Q6H PRN (Reason: Shortness Of Breath Or Wheezing) fludrocortisone 0.1 mg tablet 0.1 mg PO DAILY Eliquis 2.5 mg Tablet 2.5 mg PO BID Qty: 60 1RF Referrals Referrals: Deondre Hill MD [Primary Care Provider] - Discharge Problem: Urinary tract infection associated with indwelling urethral catheter Qualifiers: Encounter type: initial encounter Qualified Code(s): T83.511A - Infection and inflammatory reaction due to indwelling urethral catheter, initial encounter; N39.0 - Urinary tract infection, site not specified Fall Qualifiers: Encounter type: initial encounter Qualified Code(s): W19.XXXA - Unspecified fall, initial encounter
[2025-01-23] MEDS: hydrALAZINE HCL 20 MG/ML VIAL IV ONE (15:58)
[2025-01-23] MEDS ORDERED: ONDANSETRON INJ 2 MG/ML 2 ML VIAL IV PRN (17:17)
[2025-01-23] MEDS ORDERED: MAGNESIUM HYDROXIDE SUSP 30 ML UDC PO PRN (17:17)
[2025-01-23] MEDS ORDERED: hydrALAZINE HCL 20 MG/ML VIAL IV PRN (17:17)
--- NOTE | 2025-01-23 17:17 | Electrocardiogram Report ---
Test Reason : Blood Pressure : */* mmHG Vent. Rate : 70 BPM Atrial Rate : 70 BPM P-R Int : 180 ms QRS Dur : 88 ms QT Int : 422 ms P-R-T Axes : 43 54 44 degrees QTcB Int : 455 ms Normal sinus rhythm Normal ECG When compared with ECG of 19-Dec-2024 08:29, No significant change was found Confirmed by Dequan Charles ([id number]) on 01/23/2025 5:16:55 PM Referred By: REFERRED SELF Confirmed By: Dequan Charles
[2025-01-23] MEDS: busPIRone 5 MG TAB PO STA (18:13)
[2025-01-23] MEDS: HYDROCORTISONE 10 MG TAB PO SCH (18:13)
[2025-01-23] MEDS: APIXABAN 2.5 MG TAB PO SCH (20:32)
[2025-01-23] MEDS: ACETAMINOPHEN 325 MG TAB PO PRN (20:32)
[2025-01-23] MEDS: MEMANTINE HCL 10 MG TAB PO SCH (20:33)
[2025-01-23] MEDS: SODIUM CHLORIDE 0.9% 500 ML IV SCH (20:35)
[2025-01-23] MEDS ORDERED: busPIRone 5 MG TAB PO SCH (21:00)
[2025-01-24 05:10] LABS: Hematocrit (blood only) 32.6 % (42.0-52.0); Hemoglobin 10.8 g/dl (14.0-18.0); Mean Corpuscular Hemoglobin 29.5 pg (25.0-34.0); Mean Corpuscular Hgb Conc 33.1 g/dL (32.0-36.0); Mean Corpuscular Volume 89.1 fL (80.0-100.0); Mean Platelet Volume 9.1 fL (9.4-12.4); Platelet Count 216 K/uL (130-400); RDW Coefficient of Variation 15.6 % (11.5-14.5); RDW Standard Deviation 50.7 fL (36.4-46.3); Red Blood Count 3.66 M/uL (4.70-6.10); White Blood Count 5.19 K/ul (4.8-10.8)
[2025-01-24 05:26] LABS: BUN Creatinine Ratio 8.5 (10-20); Calcium 8.5 mg/dl (8.6-10.3); Creatinine Clr Calc Pharmacy 45.6 ml/min; Magnesium 1.9 mg/dl (1.7-2.4); Phosphorus 4.3 mg/dl (2.5-4.9); Potassium 3.6 mmol/L (3.5-5.1)
[2025-01-24 05:27] LABS: Albumin Globulin Ratio 1.4 (0.9-2); Bilirubin,Total 0.7 mg/dl (0.2-1.0); Globulin 2.3 gm/dl (2.5-4.0); Total Protein 5.5 gm/dl (6.0-8.3)
[2025-01-24] MEDS: ASCORBIC ACID 500 MG TAB PO SCH (08:04)
[2025-01-24] MEDS: UMECLIDINIUM/VILANTEROL 62.5/25MCG 7 PUFFS/INHALER INH SCH (08:04)
[2025-01-24] MEDS: FLUTICASONE FUROATE 200MCG 14 PUFFS/INHALER INH SCH (08:04)
[2025-01-24] MEDS: MAGNESIUM CHLORIDE W/CALCIUM 64MG DELAYED REL TAB PO SCH (08:05)
[2025-01-24] MEDS: VIBEGRON 75 MG TAB PO SCH (08:05)
[2025-01-24] MEDS: FERROUS SULFATE 325 MG TAB PO SCH (08:06)
[2025-01-24] MEDS: CHOLECALCIFEROL 125 MCG (5,000 UNITS) TAB PO SCH (08:06)
[2025-01-24] MEDS: busPIRone 5 MG TAB PO SCH (08:06)
[2025-01-24] MEDS: CYANOCOBALAMIN (B-12) 500 MCG TABLET PO SCH (08:06)
[2025-01-24] MEDS: FLUDROCORTISONE ACETATE 0.1 MG TAB PO SCH (08:06)
[2025-01-24] MEDS: CEROVITE ADV FORMULA TAB PO SCH (08:07)
[2025-01-24] MEDS: OXYBUTYNIN CHLORIDE XL 5 MG TABCR PO SCH (08:07)
[2025-01-24] MEDS: HYDROCORTISONE 10 MG TAB PO SCH (08:07)
[2025-01-24] MEDS: THIAMINE HCL 100 MG TAB PO SCH (08:07)
[2025-01-24] MEDS: PANTOprazole 40 MG TAB PO SCH (08:07)
[2025-01-24] MEDS ORDERED: NON-FORMULARY MEDICATION (Fluticasone-Umeclidin-Vilanter [Trelegy Ellipta] 200-62.5-25 mcg INH SCH (09:00)
[2025-01-24] MEDS: ADVANCED PROBIOTIC 625 MG CAPSULE PO SCH (09:40)
--- NOTE | 2025-01-24 13:05 | Hospitalist Progress Note ---
Date of Service January 24, 2025 Assessment & Plan (1) Complicated UTI (urinary tract infection): (2) Devlin catheter in place prior to arrival: (3) Confusion: (4) Dementia: (5) Hypertensive urgency: (6) Diarrhea: (7) Severe aortic stenosis: (8) Acute kidney injury superimposed on stage 3b chronic kidney disease: Plan Patient is a medically complex 79-year-old male with past medical history significant for adrenal insufficiency on chronic steroids, asthma/COPD, ANDRZEJ not on CPAP, history of DVT/PE s/p IVC filter placement on Eliquis, bladder cancer s/p surgery [off of Keytruda secondary to development of myocarditis], prostate cancer s/p radiation therapy, severe aortic stenosis, orthostatic hypotension, chronic anemia, mild cognitive impairment and dementia, ambulatory dysfunction [ambulates with a walker], chronic Devlin catheter placement complicated by recurrent UTIs, chronic venous insufficiency, CKD stage IIIb, history of VRE UTI and other medical problems listed below who presented to the ED via EMS due to concern for UTI. Complicated UTI Chronic Devlin catheter placement c/b recurrent UTIs -- Urine culture: Growing E. coli --Requested Devlin catheter exchange --Continue IV Rocephin for now Adjust antibiotics as needed Follows with urology as outpatient Confusion Dementia Acute metabolic encephalopathy likely secondary to UTI, dementia --CT head:No acute intracranial findings. No change in appearance of the brain. No calvarial fractures. Mental status seem to be back to baseline Delirium precautions Monitor HTN urgency Likely secondary to midodrine Blood pressure improved after discontinuation of midodrine Monitor blood pressure Diarrhea Likely overflow diarrhea Will obtain stool studies if recurrence Monitor Severe aortic stenosis -Noted on TTE on 12/08/24 -Has been referred to outpatient valve clinic through [facility]: pending evaluation VIOLETA on CKD stage III b -Suspect due to GI loss, poor oral intake Received IV fluids Avoid nephrotoxic agents as able Monitor renal function Chronic anemia -Stable, continue iron supplementation Adrenal insufficiency -Continue hydrocortisone, fludrocortisone COPD -Chronic, stable -CXR unremarkable -Continue home inhalers Orthostatic hypotension Hold midodrine for now 2/2 HTN urgency as per above Check orthostatics if patient symptomatic H/O DVT and PE s/p IVF filter placement Continue Eliquis DVT Px: Eliquis Code Status: FULL CODE Disposition: PT/OT prior to discharge Admission and Anticipated Discharge Date Admission Date: January 23, 2025 Subjective Patient is seen and examined at bedside States feeling well today Sitting in chair during my encounter Offers no new complaints today Eager to get discharged Updated patient's over the phone Denies any chest pain, dyspnea, nausea, vomiting, abdominal pain, dysuria, hematuria Afebrile today Mental status seem to be back to baseline Review of Systems Review of Systems: All systems reviewed & are unremarkable except as noted in Subjective Physical Exam Physical Exam: Physical Exam: Vitals signs as noted above General Appearance:Moderately built and nourished, no apparent distress Head: normocephalic, Atraumatic Eyes: normal inspection, EOMI Neck: supple, Trachea midline Respiratory/Chest: Normal breath sounds, CTA, No accessory muscle use Cardiovascular: S1, S2, + murmur Abdomen/GI:Soft, Non tender, Bowel sounds present Extremities/Musculoskeletal:normal inspection, 1+edema, chronic venous stasis changes Neurologic/Psych:AAOX2, grossly no focal neurological deficits Skin: normal color, warm Results & Data Results & Data Vital Signs (Past 12 Hours) Vital Signs Temp Pulse Pulse Resp BP BP Pulse Ox 01/24/25 11:43 36.3 C L 69 18 110/73 100 01/24/25 08:12 01/24/25 07:44 36.6 C 70 16 144/78 H 99 01/24/25 07:23 70 01/24/25 04:33 36.3 C L 71 16 129/70 96 O2 Del Method 01/24/25 11:43 Room Air 01/24/25 08:12 Room Air 01/24/25 07:44 Room Air 01/24/25 07:23 01/24/25 04:33 Room Air Laboratory Results Short CBC 01/24/25 Range/Units 04:39 WBC 5.19 (4.8-10.8) K/ul Hgb 10.8 L (14.0-18.0) g/dl Hct 32.6 L (42.0-52.0) % Plt Count 216 (130-400) K/uL BMP 01/23/25 01/24/25 11:20 04:39 Sodium 141 140 Potassium 3.7 3.6 Chloride 107 109 H Carbon Dioxide 22 25 BUN 12 12 Creatinine 1.44 H 1.41 H Glucose 93 99 Calcium 9.6 8.5 L Liver Function 01/23/25 01/24/25 Range/Units 11:20 04:39 Total Bilirubin 1.0 0.7 (0.2-1.0) mg/dl AST 13 10 L (13-39) U/L ALT 8 6 L (7-52) U/L Alkaline Phosphatase 112 H 92 (34-104) U/L Albumin 3.9 3.2 L (3.4-5.0) gm/dl (4) Dementia Dementia behavioral or psychological symptom: unspecified whether behavioral, psychotic, or mood disturbance or anxiety Dementia severity: unspecified severity Dementia type: unspecified type Qualified Code(s): F03.90 - Unspecified dementia, unspecified severity, without behavioral disturbance, psychotic disturbance, mood disturbance, and anxiety (6) Diarrhea Diarrhea type: unspecified type Qualified Code(s): R19.7 - Diarrhea, unspecified
[2025-01-24] MEDS: cefTRIAXone SODIUM 2,000 MG/50 ML BAG IV SCH (14:21)
[2025-01-25 06:25] LABS: Hematocrit (blood only) 34.5 % (42.0-52.0); Hemoglobin 11.1 g/dl (14.0-18.0); Mean Corpuscular Hgb Conc 32.2 g/dL (32.0-36.0); Mean Corpuscular Volume 90.1 fL (80.0-100.0); Mean Platelet Volume 9.1 fL (9.4-12.4); Platelet Count 201 K/uL (130-400); RDW Coefficient of Variation 15.9 % (11.5-14.5); RDW Standard Deviation 52.3 fL (36.4-46.3); Red Blood Count 3.83 M/uL (4.70-6.10); White Blood Count 5.51 K/ul (4.8-10.8)
[2025-01-25 06:50] LABS: BUN Creatinine Ratio 7.6 (10-20); Calcium 8.8 mg/dl (8.6-10.3); Creatinine Clr Calc Pharmacy 45.1 ml/min; Potassium 3.8 mmol/L (3.5-5.1)
[2025-01-25] MEDS: LACTATED RINGER'S 1,000 ML IV ONE (09:15)
--- NOTE | 2025-01-25 13:17 | Hospitalist Progress Note ---
Date of Service January 25, 2025 Assessment & Plan (1) Complicated UTI (urinary tract infection): (2) Devlin catheter in place prior to arrival: (3) Confusion: (4) Dementia: (5) Hypertensive urgency: (6) Diarrhea: (7) Severe aortic stenosis: (8) Acute kidney injury superimposed on stage 3b chronic kidney disease: Plan Patient is a medically complex 79-year-old male with past medical history significant for adrenal insufficiency on chronic steroids, asthma/COPD, ANDRZEJ not on CPAP, history of DVT/PE s/p IVC filter placement on Eliquis, bladder cancer s/p surgery [off of Keytruda secondary to development of myocarditis], prostate cancer s/p radiation therapy, severe aortic stenosis, orthostatic hypotension, chronic anemia, mild cognitive impairment and dementia, ambulatory dysfunction [ambulates with a walker], chronic Devlin catheter placement complicated by recurrent UTIs, chronic venous insufficiency, CKD stage IIIb, history of VRE UTI and other medical problems listed below who presented to the ED via EMS due to concern for UTI. Complicated UTI Chronic Devlin catheter placement c/b recurrent UTIs -- Urine culture: Grew E. coli --Requested Devlin catheter exchange --Continue IV Rocephin while hospitalized Follows with [facility] urology as outpatient Continue current management Confusion Dementia Acute metabolic encephalopathy likely secondary to UTI, dementia --CT head:No acute intracranial findings. No change in appearance of the brain. No calvarial fractures. Mental status seem to be back to baseline Delirium precautions Reorient frequently HTN urgency Likely secondary to midodrine Blood pressure improved after discontinuation of midodrine Monitor blood pressure Will avoid antihypertensives as able given history orthostatic hypotension/falls Diarrhea Likely overflow diarrhea Will obtain stool studies if recurrence Diarrhea resolved Severe aortic stenosis -Noted on TTE on 12/08/24 -Has been referred to outpatient valve clinic through [facility]: pending evaluation VIOLETA on CKD stage III b -Suspect due to GI loss, poor oral intake Avoid nephrotoxic agents as able Monitor renal function Give gentle IV fluids today Recheck BMP tomorrow Chronic anemia -Stable, continue iron supplementation Adrenal insufficiency -Continue hydrocortisone, fludrocortisone COPD -Chronic, stable -CXR unremarkable -Continue home inhalers Orthostatic hypotension Hold midodrine for now 2/2 HTN urgency as per above Check orthostatics if patient symptomatic H/O DVT and PE s/p IVF filter placement Continue Eliquis DVT Px: Eliquis Code Status: FULL CODE Disposition: PT/OT prior to discharge Admission and Anticipated Discharge Date Admission Date: January 23, 2025 Subjective Patient is seen and examined at bedside Eager to get discharged Offers no new complaints Updated patient's at bedside Urine culture growing E. coli Denies any chest pain, dyspnea, nausea, vomiting, abdominal pain, dysuria, hematuria Review of Systems Review of Systems: All systems reviewed & are unremarkable except as noted in Subjective Physical Exam Physical Exam: Physical Exam: Vitals signs as noted above General Appearance:Moderately built and nourished, no apparent distress Head: normocephalic, Atraumatic Eyes: normal inspection, EOMI Neck: supple, Trachea midline Respiratory/Chest: Normal breath sounds, CTA, No accessory muscle use Cardiovascular: S1, S2, + murmur Abdomen/GI:Soft, Non tender, Bowel sounds present Extremities/Musculoskeletal:normal inspection, 1+edema, chronic venous stasis changes Neurologic/Psych:AAOX2, grossly no focal neurological deficits Skin: normal color, warm Results & Data Results & Data Vital Signs (Past 12 Hours) Vital Signs Temp Pulse Pulse Resp BP BP Pulse Ox 01/25/25 11:47 36.4 C L 65 19 159/78 H 100 01/25/25 08:23 36.5 C 68 18 149/75 H 99 01/25/25 07:09 63 01/25/25 04:02 36.6 C 73 18 153/81 H 99 O2 Del Method 01/25/25 11:47 Room Air 01/25/25 08:23 Room Air 01/25/25 07:09 01/25/25 04:02 Room Air Laboratory Results Short CBC 01/25/25 Range/Units 06:05 WBC 5.51 (4.8-10.8) K/ul Hgb 11.1 L (14.0-18.0) g/dl Hct 34.5 L (42.0-52.0) % Plt Count 201 (130-400) K/uL BMP 01/25/25 06:05 Sodium 144 Potassium 3.8 Chloride 112 H Carbon Dioxide 26 BUN 12 Creatinine 1.57 H Glucose 93 Calcium 8.8 (4) Dementia Dementia type: unspecified type Dementia severity: unspecified severity Dementia behavioral or psychological symptom: unspecified whether behavioral, psychotic, or mood disturbance or anxiety Qualified Code(s): F03.90 - Unspecified dementia, unspecified severity, without behavioral disturbance, psychotic disturbance, mood disturbance, and anxiety (6) Diarrhea Diarrhea type: unspecified type Qualified Code(s): R19.7 - Diarrhea, unspecified
[2025-01-26 07:20] LABS: BUN Creatinine Ratio 8.5 (10-20); Calcium 8.5 mg/dl (8.6-10.3); Creatinine Clr Calc Pharmacy 49.8 ml/min; Potassium 3.4 mmol/L (3.5-5.1)
[2025-01-26 08:05] VITALS: TEMP 97.7
[2025-01-26] MEDS: POTASSIUM CHLORIDE 10 MEQ TABCR PO ONE (08:09)
[2025-01-26] MEDS: POLYETHYLENE (MIRALAX) 17 GM PACK PO PRN (08:10)
[2025-01-26 11:13] VITALS: PULSE 68; RESP 19; O2SAT 99
--- NOTE | 2025-01-26 11:16 | Hospitalist Progress Note ---
Date of Service January 26, 2025 Assessment & Plan (1) Complicated UTI (urinary tract infection): (2) Devlin catheter in place prior to arrival: (3) Confusion: (4) Dementia: (5) Hypertensive urgency: (6) Diarrhea: (7) Severe aortic stenosis: (8) Acute kidney injury superimposed on stage 3b chronic kidney disease: Plan Patient is a medically complex 79-year-old male with past medical history significant for adrenal insufficiency on chronic steroids, asthma/COPD, ANDRZEJ not on CPAP, history of DVT/PE s/p IVC filter placement on Eliquis, bladder cancer s/p surgery [off of Keytruda secondary to development of myocarditis], prostate cancer s/p radiation therapy, severe aortic stenosis, orthostatic hypotension, chronic anemia, mild cognitive impairment and dementia, ambulatory dysfunction [ambulates with a walker], chronic Devlin catheter placement complicated by recurrent UTIs, chronic venous insufficiency, CKD stage IIIb, history of VRE UTI and other medical problems listed below who presented to the ED via EMS due to concern for UTI. Complicated UTI Chronic Devlin catheter placement c/b recurrent UTIs -- Urine culture: Grew E. coli --Requested Devlin catheter exchange --Continue IV Rocephin Day#4 Follows with [facility] urology as outpatient Transition to oral antibiotics to complete the course Plan to discharge home today Confusion Dementia Acute metabolic encephalopathy likely secondary to UTI, dementia --CT head:No acute intracranial findings. No change in appearance of the brain. No calvarial fractures. Mental status seem to be back to baseline Delirium precautions Reorient frequently Resolved HTN urgency Likely secondary to midodrine Midodrine discontinued Blood pressure stable Will avoid antihypertensives as able given history orthostatic hypotension/falls Diarrhea Likely overflow diarrhea Will obtain stool studies if recurrence Diarrhea resolved Severe aortic stenosis -Noted on TTE on 12/08/24 -Has been referred to outpatient valve clinic through [facility]: pending evaluation VIOLETA on CKD stage III b -Suspect due to GI loss, poor oral intake Avoid nephrotoxic agents as able Monitor renal function Received gentle IV fluids Creatinine levels better Chronic anemia -Stable, continue iron supplementation Adrenal insufficiency -Continue hydrocortisone, fludrocortisone COPD -Chronic, stable -CXR unremarkable -Continue home inhalers Orthostatic hypotension Hold midodrine for now 2/2 HTN urgency as per above Check orthostatics if patient symptomatic H/O DVT and PE s/p IVF filter placement Continue Eliquis DVT Px: Eliquis Code Status: FULL CODE Disposition: Home with home health Admission and Anticipated Discharge Date Admission Date: January 23, 2025 Subjective Patient is seen and examined at bedside Sitting in chair during my encounter Offers no complaints Denies any chest pain, dyspnea, nausea, vomiting, abdominal pain, dysuria, hematuria Plan to discharge home today Review of Systems Review of Systems: All systems reviewed & are unremarkable except as noted in Subjective Physical Exam Physical Exam: Physical Exam: Vitals signs as noted above General Appearance:Moderately built and nourished, no apparent distress Head: normocephalic, Atraumatic Eyes: normal inspection, EOMI Neck: supple, Trachea midline Respiratory/Chest: Normal breath sounds, CTA, No accessory muscle use Cardiovascular: S1, S2, + murmur Abdomen/GI:Soft, Non tender, Bowel sounds present Extremities/Musculoskeletal:normal inspection, 1+edema, chronic venous stasis changes Neurologic/Psych:AAOX2, grossly no focal neurological deficits Skin: normal color, warm Results & Data Results & Data Vital Signs (Past 12 Hours) Vital Signs Temp Pulse Pulse Resp BP BP Pulse Ox 01/26/25 11:12 36.5 C 68 19 120/70 99 01/26/25 09:16 01/26/25 08:04 36.5 C 70 16 147/75 H 98 01/26/25 07:00 72 01/26/25 03:51 36.6 C 78 20 142/76 H 96 01/26/25 00:25 36.6 C 72 20 155/76 H 96 01/26/25 00:19 76 O2 Del Method 01/26/25 11:12 Room Air 01/26/25 09:16 Room Air 01/26/25 08:04 Room Air 01/26/25 07:00 01/26/25 03:51 Room Air 01/26/25 00:25 Room Air 01/26/25 00:19 Laboratory Results BMP 01/26/25 06:22 Sodium 144 Potassium 3.4 L Chloride 113 H Carbon Dioxide 24 BUN 12 Creatinine 1.42 H Glucose 104 H Calcium 8.5 L (4) Dementia Dementia type: unspecified type Dementia severity: unspecified severity Dementia behavioral or psychological symptom: unspecified whether behavioral, psychotic, or mood disturbance or anxiety Qualified Code(s): F03.90 - Unspecified dementia, unspecified severity, without behavioral disturbance, psychotic disturbance, mood disturbance, and anxiety (6) Diarrhea Diarrhea type: unspecified type Qualified Code(s): R19.7 - Diarrhea, unspecified
--- NOTE | 2025-01-26 11:33 | Discharge Summary ---
Date of Service January 26, 2025 Admission HPI Per Admitting Provider Patient is a medically complex 79-year-old male with past medical history significant for adrenal insufficiency on chronic steroids, asthma/COPD, ANDRZEJ not on CPAP, history of DVT/PE s/p IVC filter placement on Eliquis, bladder cancer s/p surgery [off of Keytruda secondary to development of myocarditis], prostate cancer s/p radiation therapy, severe aortic stenosis, orthostatic hypotension, chronic anemia, mild cognitive impairment and dementia, ambulatory dysfunction [ambulates with a walker], chronic Devlin catheter placement complicated by recurrent UTIs, chronic venous insufficiency, CKD stage IIIb, history of VRE UTI and other medical problems listed below who presented to the ED via EMS due to concern for UTI. History obtained from the patient, discussion with patient's over the phone, discussion with ED provider and associated chart review. This is the patient's sixth admission of the year since August 2024. Most recent confinement under service last month, 12/19/24-12/28/24, for multiple issues including fall/ambulatory dysfunction, complicated UTI and finding of severe aortic stenosis on updated TTE. Urine culture at the time grew E. coli with resistance to ampicillin, Unasyn, ciprofloxacin, levofloxacin and Bactrim. Blood cultures were negative. There was some initial concern regarding possible pubic osteomyelitis on imaging last admission however this was ruled out via bone marrow biopsy which showed no microscopic evidence of osteonecrosis or osteomyelitis. Changes on imaging thought were thought to be likely secondary to prior radiation therapy for prostate cancer. Patient seen and evaluated in the outpatient cardiology clinic at [facility] on 01/19/25. He was referred to the valve clinic due to his severe aortic stenosis, although given his medical complexity, there is a possibility he may not be a candidate for replacement per documentation from that visit. He has yet to seen the valve clinic. Patient reportedly with a fall at home on 01/21/25 with no reported injuries. Did not strike head. EMS was called following this event for lift assist however patient was not evaluated in the ED at that time. Patient is currently established with [facility] services. Per , patient was "horribly confused" last evening and overnight. He was unable to recognize her, seemed extremely anxious and did not recall where he was. He received a dose of BuSpar before this change in mentation/behavior occurred. concerned he was developing a UTI as he has presented in similar fashion with prior UTIs. He reportedly hadn't had a BM in about a week as of 2 days ago therefore he was started on stool softeners/stimulant laxatives. admits that he had "explosive diarrhea" last evening and again overnight into this morning. No reported fevers at home but does report chills. Mentions he is "always cold." She also noticed that the top of his feet seem more swollen this morning. Appetite grossly unchanged. Did not eat any breakfast this morning. Devlin catheter last changed on 01/03/25 at [facility] during cystoscopy per . Reportedly had a larger catheter placed and was still have some urine leaking around the catheter, which has been an ongoing issue (thought to be secondary to bladder spasms per prior documentation). according to his , he is not scheduled for catheter replacement until 01/31/25. Admission Exam Per Admitting Provider On exam: GENERAL: Oriented x 3, confused/anxious more than his baseline while at bedside exam. NAD, on RA. Anxious/ill appearing. HEENT: No pallor, no icterus. Pupils equal, round and reactive to light. Oral mucosa moist. NECK: No JVD, no neck masses. HEART: S1 and S2 heard. Regular rate and rhythm. No murmur, no gallop. RESPIRATORY SYSTEM: Normal AP diameter. No accessory muscle use. No wheezing, no crackles. ABDOMEN: Soft, bowel sounds present, nontender, no distention. CENTRAL NERVOUS SYSTEM: No facial droop. Speech is clear. Obeys simple commands. Moves extremities. EXTREMITIES: R> L 1-2+ ble edema, no erythema seen. Principal Diagnosis Complicated urinary tract infection Acute metabolic encephalopathy Hypertensive urgency Discharge Data Allergies Allergy/AdvReac Type Severity Reaction Status Date / Time Iodinated Contrast Media Allergy Severe LOVERSOL---CARDIAC Verified 11/12/24 20:[address] CONTRAST clindamycin Allergy Intermediate Rash Verified 11/12/24 20:27 cranberry Allergy Unknown Unknown Verified 11/12/24 20:27 caffeine Allergy Verified 11/13/24 15:45 chocolate flavor AdvReac Severe DIARRHEA/ Verified 11/12/24 20:27 Cannot take, interacts w/ medications. pembrolizumab [From [employer]] AdvReac Intermediate myocarditis Verified 11/12/24 20:27 Consultations 01/23/25 14:31 ED Decision to Admit Stat Procedures Performed Laboratory Results WBC 5.51 K/ul (4.8-10.8) 01/25/25 06:05 RBC 3.83 M/uL (4.70-6.10) L 01/25/25 06:05 Hgb 11.1 g/dl (14.0-18.0) L 01/25/25 06:05 Hct 34.5 % (42.0-52.0) L 01/25/25 06:05 MCV 90.1 fL (80.0-100.0) 01/25/25 06:05 MCH 29.0 pg (25.0-34.0) 01/25/25 06:05 MCHC 32.2 g/dL (32.0-36.0) 01/25/25 06:05 RDW Std Deviation 52.3 fL (36.4-46.3) H 01/25/25 06:05 RDW Coeff of Robert 15.9 % (11.5-14.5) H 01/25/25 06:05 Plt Count 201 K/uL (130-400) 01/25/25 06:05 MPV 9.1 fL (9.4-12.4) L 01/25/25 06:05 Immature Gran % (Auto) 0.1 % 01/23/25 11:20 Neut % (Auto) 60.3 % 01/23/25 11:20 Lymph % (Auto) 28.3 % 01/23/25 11:20 [place] % (Auto) 7.6 % 01/23/25 11:20 Eos % (Auto) 3.1 % 01/23/25 11:20 Baso % (Auto) 0.6 % 01/23/25 11:20 Neut # (Auto) 4.14 K/uL (1.40-6.50) 01/23/25 11:20 Lymph # (Auto) 1.94 K/uL (1.20-3.40) 01/23/25 11:20 [place] # (Auto) 0.52 K/uL (0.11-0.59) 01/23/25 11:20 Eos # (Auto) 0.21 K/uL (0.00-0.50) 01/23/25 11:20 Baso # (Auto) 0.04 K/uL (0.00-0.20) 01/23/25 11:20 Immature Gran # (Auto) 0.01 K/uL (0.01-0.20) 01/23/25 11:20 Sodium 144 mmol/L (136-145) 01/26/25 06:22 Potassium 3.4 mmol/L (3.5-5.1) L 01/26/25 06:22 Chloride 113 mmol/L (98-107) H 01/26/25 06:22 Carbon Dioxide 24 mmol/L (21-32) 01/26/25 06:22 Anion Gap 7 (3-11) 01/26/25 06:22 BUN 12 mg/dl (6-23) 01/26/25 06:22 Creatinine 1.42 mg/dl (0.6-1.4) H 01/26/25 06:22 Est Cr Clr Drug Dosing 49.8 ml/min 01/26/25 06:22 eGFR 50.58 01/26/25 06:22 BUN/Creatinine Ratio 8.5 (10-20) L 01/26/25 06:22 Glucose 104 mg/dl (70-99(Fasting)) H 01/26/25 06:22 Calcium 8.5 mg/dl (8.6-10.3) L 01/26/25 06:22 Phosphorus 4.3 mg/dl (2.5-4.9) 01/24/25 04:39 Magnesium 2.0 mg/dl (1.7-2.4) 01/25/25 06:05 Total Bilirubin 0.7 mg/dl (0.2-1.0) 01/24/25 04:39 AST 10 U/L (13-39) L 01/24/25 04:39 ALT 6 U/L (7-52) L 01/24/25 04:39 Alkaline Phosphatase 92 U/L (34-104) 01/24/25 04:39 Troponin I High Sens 6.0 pg/ml (0-20) 01/23/25 11:20 Total Protein 5.5 gm/dl (6.0-8.3) L 01/24/25 04:39 Albumin 3.2 gm/dl (3.4-5.0) L 01/24/25 04:39 Globulin 2.3 gm/dl (2.5-4.0) L 01/24/25 04:39 Albumin/Globulin Ratio 1.4 (0.9-2) 01/24/25 04:39 Lipase 9 U/L (11-82) L 01/23/25 11:20 Urine Color Yellow 01/23/25 12:13 Urine Appearance Clear (Clear) 01/23/25 12:13 Urine pH 8.5 (4.5-7.5) H 01/23/25 12:13 Ur Specific [place] 1.008 (1.000-1.030) 01/23/25 12:13 Urine Protein 1+ (Negative) H 01/23/25 12:13 Urine Glucose (UA) Negative (Negative) 01/23/25 12:13 Urine Ketones Trace (Negative) H 01/23/25 12:13 Urine Blood Trace (Negative) H 01/23/25 12:13 Urine Nitrite Positive (Negative) A 01/23/25 12:13 Urine Bilirubin Negative (Negative) 01/23/25 12:13 Urine Urobilinogen Negative (Negative) 01/23/25 12:13 Ur Leukocyte Esterase 3+ (Negative) H 01/23/25 12:13 Urine WBC (Auto) >50 /hpf (0-5) H 01/23/25 12:13 Urine RBC (Auto) 3-5 /hpf (0-2) H 01/23/25 12:13 U Hyaline Cast (Auto) 0-2 /lpf (0-2) 01/23/25 12:13 U Epithel Cells (Auto) 0-2 /hpf (0-2) 01/23/25 12:13 Urine Bacteria (Auto) 4+ (None Seen) H 01/23/25 12:13 Urine Comment 01/23/25 12:13 Impressions Chest X-Ray 01/23/25 11:50 XR chest 1V portable CLINICAL HISTORY: syncope COMPARISON STUDY: 12/19/2024 FINDINGS: Stable mild cardiomegaly without a vascular congestion. Stable mild stranding opacity at the left lung base. No new consolidation or pleural effusion seen. No pneumothorax. IMPRESSION: No acute findings. ACT 112: Negative or not required by law. Electronically signed by: Hawk Hensley M.D. 01/23/2025 12:[address] 01/23/25 13:15 CT SCAN OF THE BRAIN WITHOUT IV CONTRAST CLINICAL HISTORY: Multiple falls. Confusion. COMPARISON STUDY: MRI of the brain January 04, 2024. Head CT November 03, 2024. TECHNIQUE: Unenhanced axial CT scan of the brain was performed from the vertex to the skull base. A dose lowering technique was utilized adhering to the principles of ALARA. CT DOSE: 688.24 mGy.cm FINDINGS: Brain parenchyma: No acute intracranial hemorrhage, midline shift or mass effect is present. Ware-white matter differentiation is preserved. There are no extra- axial fluid collections. There are no findings to suggest acute dural sinus thrombosis or acute territorial infarct. Matter hypodensities are unchanged and favor small vessel disease. Hypodensities within the inferior bilateral basal ganglia are unchanged. Ventricles, sulci, cisterns: There is no hydrocephalus. The basal cisterns are patent. Calvarium: There are no calvarial fractures. Sinuses and mastoids: Right sphenoid sinus air-fluid level is present. Overall, paranasal sinus opacification has improved when compared to prior CT. The mastoid air cells are well pneumatized. Orbits: The bony orbits are grossly intact. IMPRESSION: 1. No acute intracranial findings. No change in appearance of the brain. 2. No calvarial fractures. ACT 112: Negative or not required by law. Electronically signed by: Boris Keys M.D. 01/23/2025 2:05 PM Ordered Studies 01/23/25 13:15 CT head/brain wo con Stat Hospital Course (1) Complicated UTI (urinary tract infection): (2) Devlin catheter in place prior to arrival: (3) Confusion: (4) Dementia: (5) Hypertensive urgency: (6) Diarrhea: (7) Severe aortic stenosis: (8) Acute kidney injury superimposed on stage 3b chronic kidney disease: Plan Patient is a medically complex 79-year-old male with past medical history significant for adrenal insufficiency on chronic steroids, asthma/COPD, ANDRZEJ not on CPAP, history of DVT/PE s/p IVC filter placement on Eliquis, bladder cancer s/p surgery [off of Keytruda secondary to development of myocarditis], prostate cancer s/p radiation therapy, severe aortic stenosis, orthostatic hypotension, chronic anemia, mild cognitive impairment and dementia, ambulatory dysfunction [ambulates with a walker], chronic Devlin catheter placement complicated by recurrent UTIs, chronic venous insufficiency, CKD stage IIIb, history of VRE UTI and other medical problems listed below who presented to the ED via EMS due to concern for UTI. Complicated UTI Chronic Devlin catheter placement c/b recurrent UTIs -- Urine culture: Grew E. coli --Requested Devlin catheter exchange --Continue IV Rocephin Day#4 Follows with [facility] urology as outpatient Transition to oral antibiotics to complete the course Plan to discharge home today Confusion Dementia Acute metabolic encephalopathy likely secondary to UTI, dementia --CT head:No acute intracranial findings. No change in appearance of the brain. No calvarial fractures. Mental status seem to be back to baseline Delirium precautions Reorient frequently Resolved HTN urgency Likely secondary to midodrine Midodrine discontinued Blood pressure stable Will avoid antihypertensives as able given history orthostatic hypotension/falls Diarrhea Likely overflow diarrhea Will obtain stool studies if recurrence Diarrhea resolved Severe aortic stenosis -Noted on TTE on 12/08/24 -Has been referred to outpatient valve clinic through [facility]: pending evaluation VIOLETA on CKD stage III b -Suspect due to GI loss, poor oral intake Avoid nephrotoxic agents as able Monitor renal function Received gentle IV fluids Creatinine levels better Chronic anemia -Stable, continue iron supplementation Adrenal insufficiency -Continue hydrocortisone, fludrocortisone COPD -Chronic, stable -CXR unremarkable -Continue home inhalers Orthostatic hypotension Hold midodrine for now 2/2 HTN urgency as per above Check orthostatics if patient symptomatic H/O DVT and PE s/p IVF filter placement Continue Eliquis DVT Px: Eliquis Code Status: FULL CODE Disposition: Home with home health Total Time Total Time Spent Total Time Spent (In Minutes): 54 minutes Discharge Plan Discharge Items Patient Disposition: Home - Home Health Services Reason For Visit: COMPLICATED UTI, CONFUSION Discharge Diagnosis: Complicated urinary tract infection Acute metabolic encephalopathy Hypertensive urgency Condition on Discharge: Fair Activity: Per Instructions section Exercise/Sports: Gradually increase as tolerated Non-emergency contact: Primary Care Provider, Specialist and Urologist Call non-emergency contact if: you have any medication questions, your symptoms worsen, your pain is concerning for you and you have a fever Follow-up/Referrals: Deondre Hill MD [Primary Care Provider] - (Date & Time 01/30/2025 2:00 PM Provider: Chuy Batista MD [facility] [place] ) Diet: Heart Healthy Add Attending Provider Instructions: -- Follow-up with your primary care physician on 01/30/2025 2:00 PM --Follow-up with your infectious disease specialist as recommended for possible chronic suppressive therapy for recurrent urinary tract infections --Follow-up with your urologist as needed -- Complete the antibiotic course cefdinir as prescribed. -- Get blood work (basic metabolic panel) in 1 week to monitor your renal function. Discuss with your primary care physician for further recommendations. --You midodrine is discontinued as likely contributing to elevated blood pressure. Monitor your blood pressure regularly as advised. Seek immediate medical attention if your symptoms reoccur or worsen Please review medication list provided on discharge for any medication changes as instructed. Please call if you have any questions or problems. You can reach a [facility] hospitalist on duty at [facility] 24 hours a day by calling [phone] Pending Studies at Discharge: No Stand-Alone Forms: My [facility], Smoking Cessation Medications and DC Order Prescriptions: New Advanced Probiotic 625 mg (10 billion cell) Capsule 1 cap PO DAILY 10 Days Qty: 10 0RF cefdinir 300 mg capsule 300 mg PO BID Qty: 8 0RF Continued hydrocortisone [Cortef] 10 mg tablet 20 mg PO QAM Qty: 0 0RF hydrocortisone [Cortef] 10 mg tablet 10 mg PO .DAILY @ 1500 Rx Instructions: TAKES 20mg in am. and 10mg at 1500 ferrous sulfate 325 mg (65 mg iron) tablet,delayed release (DR/EC) 325 mg PO 3XWK Rx Instructions: MON, WED, & FRI. magnesium chloride 64 mg tablet,delayed release (DR/EC) 64 mg PO DAILY buspirone 5 mg Tablet 5 mg PO TID Qty: 90 1RF thiamine HCl (vitamin B1) 100 mg Tablet 100 mg PO QAM Qty: 30 1RF mirabegron 50 mg tablet extended release 24 hr 50 mg PO DAILY Qty: 30 1RF acetaminophen 325 mg Tablet 650 mg PO Q4H PRN (Reason: fever or pain) Qty: 30 0RF memantine 10 mg Tablet 10 mg PO BID Qty: 60 0RF lidocaine 5 % Adhesive Patch,Medicated 2 patch transdermal DAILY Qty: 20 0RF ascorbic acid (vitamin C) 1,000 mg Tablet 1,000 mg PO DAILY Qty: 30 0RF cyanocobalamin (vitamin B-12) 1,000 mcg Tablet 1,000 mcg PO DAILY Qty: 30 0RF omeprazole 20 mg capsule,delayed release(DR/EC) 20 mg PO DAILY Qty: 30 0RF epinephrine 0.3 mg/0.3 mL Auto-Injector 0.3 mg IM UD PRN (Reason: Anaphylaxis) Qty: 3 0RF Rx Instructions: prn anaphylaxis solifenacin 5 mg tablet 5 mg PO DAILY Qty: 30 0RF cholecalciferol (vitamin D3) [Vitamin D3] 125 mcg (5,000 unit) Tablet 125 mcg PO DAILY Qty: 30 0RF multivit with min-folic acid [Multivitamin Gummies] 200 mcg Tablet,Chewable 1 tab PO DAILY Qty: 30 0RF Trelegy Ellipta 200-62.5-25 mcg blister with device 1 inh INHALATION DAILY Qty: 1 0RF albuterol sulfate 90 mcg/actuation HFA aerosol inhaler 2 puff INHALATION Q6H PRN (Reason: Shortness Of Breath Or Wheezing) fludrocortisone 0.1 mg tablet 0.1 mg PO DAILY Eliquis 2.5 mg Tablet 2.5 mg PO BID Qty: 60 1RF Discontinued midodrine 2.5 mg Tablet 2.5 mg PO TID@0800,1200,1700 Qty: 90 1RF Discharge Orders: Discharge Order (Routine); Ordered 01/26/25 Ordered By: Matt Gongora Admission Data Admit Date/Time: 01/23/25 15:32 Attending Provider: Matt Gongora Admit Provider: Issa Dickerson Primary Care Provider: Deondre Hill Other Providers: Issa Dickerson
[2025-01-26 11:38] VITALS: BP 142/76
== END 2025-01-26 13:25 | disposition home health service (06) | DRG 698 ==
LOC: ED 11:05 → SUATTDRO 15:32 → INTOOBSV 15:32 → 2N 15:32

== ENCOUNTER 2025-07-10 12:12 | Inpatient (IN) ==
[2025-07-10 13:34] LABS: Hematocrit (blood only) 41.4 % (42.0-52.0); Hemoglobin 13.7 g/dL (14.0-18.0); Immature Granulocytes # (auto) 0.02 K/uL (0.01-0.20); Immature Granulocytes % (auto) 0.3 %; Mean Corpuscular Hemoglobin 29.5 pg (25.0-34.0); Mean Corpuscular Volume 89.2 fL (80.0-100.0); Platelet Count 190 K/uL (130-400); RDW Standard Deviation 46.8 fL (36.4-46.3); Red Blood Count 4.64 M/uL (4.70-6.10); White Blood Count 7.29 K/ul (4.8-10.8)
[2025-07-10 13:46] LABS: Alanine Aminotransferase 9.0 U/L (7-52); Albumin Globulin Ratio 1.4 (0.9-2); Albumin Level 3.7 gm/dl (3.4-5.0); Alkaline Phosphatase 94.0 U/L (34-104); Anion Gap 7.0 (3-11); Bilirubin,Total 1.0 mg/dl (0.2-1.0); Blood Urea Nitrogen 20.0 mg/dl (6-23); Calcium 8.9 mg/dl (8.6-10.3); Carbon Dioxide 29.0 mmol/L (21-32); Chloride 107.0 mmol/L (98-107); Creatinine Clr Calc Pharmacy 57.2 ml/min; Globulin 2.7 gm/dl (2.5-4.0); Glucose 129.0 mg/dl (70-99(Fasting)); Lipase 5.0 U/L (11-82); Potassium 3.7 mmol/L (3.5-5.1); Sodium 143.0 mmol/L (136-145); Total Protein 6.4 gm/dl (6.0-8.3)
[2025-07-10 13:50] LABS: Appearance Urine Turbid (Clear); Bacteria Urine Automated 2+ (None Seen); Epithelial Cell Urine Auto 0-2 /hpf (0-2); Glucose Urine UA Negative (Negative); RBC Urine Automated >20 /hpf (0-2); WBC Urine Automated >50 /hpf (0-5)
[2025-07-10] MEDS: cefTRIAXone SODIUM 2,000 MG/50 ML BAG IV STA (14:29)
[2025-07-10] MEDS: DAPTOmycin 1,000 MG in SYRINGE 0 ML IV ONE (14:30)
--- NOTE | 2025-07-10 14:43 | History & Physical Report ---
Date of Service July 10, 2025 Assessment & Plan (1) Complicated UTI (urinary tract infection): (2) Chronic indwelling Devlin catheter: Plan Mr. High is a medically complex 79-year-old male with past medical history significant for adrenal insufficiency on chronic steroids, asthma/COPD, ANDRZEJ not on CPAP, history of DVT/PE s/p IVC filter placement on Eliquis, bladder cancer s/p surgery, prostate cancer s/p radiation therapy, severe aortic stenosis, orthostatic hypotension, chronic anemia, mild cognitive impairment and dementia, ambulatory dysfunction, chronic indwelling Devlin catheter placement complicated by recurrent UTIs, chronic venous insufficiency, CKD stage IIIb and history of VRE UTI who presented to the ED after urine culture from 07/08/25 grew E. coli and MRSA. Previously seen in our ED on 07/08/25 s/p fall out of bed. Trauma imaging including CXR, head CT, pelvis XR, CTAP and cervical spine CT were all grossly unremarkable. UA was completed which showed evidence of infection including positive nitrites, 3+ LE, >50 WBC and 4+ bacteria. Was given a dose of IV Rocephin in the ED, Devlin cath was exchanged and he was DC'd home on p.o. cefdinir. Pharmacy called pt's , Ivet, earlier today regarding above urine culture results. There was c/f systemic sx as pt with questionable fever yesterday, chills, generalized weakness and myalgias per >> therefore was brought into ED for reeval. #Complicated UTI #Chronic indwelling Devlin catheter 2/2 history of bladder CA s/p surgery and prostate CA s/p radiation therapy Not meeting sepsis criteria on admission. No leukocytosis, hemodynamically stable. Afebrile. Devlin catheter previously exchanged on 07/08/25 >> will exchange again today given MRSA positive on urine culture. ABX d/w pharmacy in ED, recommended IV daptomycin and Rocephin >> will continue for now pending repeat urine culture, blood cultures. Appreciate PT/OT evals to determine DC needs. Check nasal MRSA swab, contact precautions. May need to consider ID consult depending on culture results. #Severe aortic stenosis Noted on TTE done in November 2024. Tentatively scheduled for TAVR on 07/20/25. #CKD stage IIIb Creatinine stable, baseline creatinine around 1.2-1.5 per chart review. Continue to monitor and avoid nephrotoxic agents as able. #History of DVT/PE s/p IVC filter placement chronically anticoagulated on Eliquis Continue Eliquis. #Chronic anemia Stable, continue Fe supplementation and daily CBC monitoring. #Chronic adrenal insufficiency Continue hydrocortisone, fludrocortisone. #Mild cognitive impairment Mentation status at baseline, continue memantine and donepezil. Delirium precautions. #COPD Reports nonproductive cough, some sinus congestion x 1 week. diagnosed with influenza earlier today. Respiratory BioFire panel negative. Saturating well on room air. CXR with unchanged mild left lung base opacity, likely due to atelectasis or scar. No reported SOB, doubt COPD exacerbation. Mucinex trial for decongestion, encourage ISP use. DVT Prophylaxis: Eliquis Code Status: FULL CODE PCP: Chuy Batista MD Disposition: Admit to med/surg Patient seen in collaboration with Dr. Devlin. Please see addendum. I spent a total of 82 minutes coordinating, documenting, and providing care for this patient excluding time spent in the performance of separately billed services or time spent by another provider/QHP. This included personally reviewing all current laboratories and imaging studies, medical reconciliation, outpatient chart review and discussion with specialists. This chart was completed in part utilizing Speech Voice Recognition Software. Grammatical errors, random word insertions, pronoun errors, and incomplete sentences are an occasional consequence of this system due to software limitations, ambient noise, and hardware issues. Any formal questions or concerns about the content, text, or information contained within the body of this dictation should be directly addressed to the provider for clarification. History of Present Illness Chief Complaint: Urine culture from 07/08/25 growing E. coli, MRSA Primary Care Provider: Chuy Batista MD Patient is a medically complex 79-year-old male with past medical history significant for adrenal insufficiency on chronic steroids, asthma/COPD, ANDRZEJ not on CPAP, history of DVT/PE s/p IVC filter placement on Eliquis, bladder cancer s/p surgery, prostate cancer s/p radiation therapy, severe aortic stenosis, orthostatic hypotension, chronic anemia, mild cognitive impairment and dementia, ambulatory dysfunction, chronic indwelling Devlin catheter placement complicated by recurrent UTIs, chronic venous insufficiency, CKD stage IIIb and history of VRE UTI who presented to the ED for UTI treatment. History obtained primarily from the patient's , Ivet, at bedside. Additional history elicited from the patient, discussion with ED provider and associated chart review. Patient previously seen in our ED on 07/08/25 s/p fall out of bed. Trauma imaging at that time including CXR, head CT, pelvis XR, CTAP and cervical spine CT were all grossly unremarkable. Patient with chronic indwelling Devlin catheter c/b recurrent UTIs. UA was completed which showed evidence of infection including positive nitrites, 3+ LE, >50 WBC and 4+ bacteria. Patient was given a dose of IV Rocephin in the ED and discharged home on p.o. cefdinir. He was referred back to the ED today for IV ABX therapy after urine culture grew E. coli and MRSA. Devlin catheter exchanged on 07/08/25. Experiencing some fatigue, myalgias. was diagnosed with influenza earlier today. Patient has been experiencing a mild cough, some SOB and sinus congestion for the past week. Possible fever yesterday with associated chills, no recorded temperature was ever taken. Describes some lower abdominal pressure but passing normal BMs. Had some mild hematuria s/p Devlin catheter exchange in the ED 2 days ago, as per above, however this has resolved. Denies any N/V. Tolerating oral intake without issue. Tentatively scheduled for TAVR procedure on 07/17/25. Allergies Allergy/AdvReac Type Severity Reaction Status Date / Time Iodinated Contrast Media Allergy Severe LOVERSOL---CARDIAC Verified 11/12/24 20:[address] CONTRAST clindamycin Allergy Intermediate Rash Verified 11/12/24 20:27 cranberry Allergy Unknown Unknown Verified 11/12/24 20:27 caffeine Allergy Verified 11/13/24 15:45 chocolate flavor AdvReac Severe DIARRHEA/ Verified 11/12/24 20:27 Cannot take, interacts w/ medications. pembrolizumab [From Desura] AdvReac Intermediate myocarditis Verified 11/12/24 20:27 Home Medications Medication Instructions Recorded Confirmed Type ascorbic acid (vitamin C) 1,000 mg 1,000 mg PO DAILY #30 tabs 06/08/24 07/10/25 Rx tablet cholecalciferol (vitamin D3) 125 125 mcg PO DAILY #30 tabs 06/08/24 07/10/25 Rx mcg (5,000 unit) tablet (Vitamin D3) cyanocobalamin (vitamin B-12) 1,000 mcg PO DAILY #30 tabs 06/08/24 07/10/25 Rx 1,000 mcg tablet epinephrine 0.3 mg/0.3 mL 0.3 mg (0.3 mL) IM UD PRN 06/08/24 07/10/25 Rx injection, auto-injector Anaphylaxis #3 ea fluticasone fur. 200 mcg-umeclid 1 inh inhalation DAILY #1 ea 06/08/24 07/10/25 Rx 62.5 mcg-vilant 25 mcg inhalat.powder (Trelegy Ellipta) lidocaine 5 % topical patch 2 patch transdermal DAILY #20 ea 06/08/24 07/10/25 Rx memantine 10 mg tablet 10 mg PO BID #60 tabs 06/08/24 07/10/25 Rx omeprazole 20 mg capsule,delayed 20 mg PO DAILY #30 caps 06/08/24 07/10/25 Rx release solifenacin 5 mg tablet 5 mg PO DAILY #30 tabs 06/08/24 07/10/25 Rx hydrocortisone 10 mg tablet 20 mg (2 x 10 mg) PO QAM #0 tabs 07/07/24 07/10/25 Rx (Cortef) albuterol sulfate 90 mcg/actuation 2 puff inhalation Q6H PRN 08/21/24 07/10/25 History aerosol inhaler Shortness Of Breath Or Wheezing fludrocortisone 0.1 mg tablet 0.1 mg PO DAILY 08/21/24 07/10/25 History ferrous sulfate 325 mg (65 mg 325 mg PO 3XWK 11/03/24 07/10/25 History iron) tablet,delayed release hydrocortisone 10 mg tablet 10 mg PO .DAILY @ 1500 11/03/24 07/10/25 History (Cortef) apixaban 2.5 mg tablet (Eliquis) 2.5 mg PO BID #60 tabs 11/16/24 07/10/25 Rx buspirone 5 mg tablet 5 mg PO TID #90 tabs 12/28/24 07/10/25 Rx mirabegron 50 mg tablet,extended 50 mg PO DAILY #30 tabs 12/28/24 07/10/25 Rx release 24 hr thiamine HCl (vitamin B1) 100 mg 100 mg PO QAM #30 tabs 12/28/24 07/10/25 Rx tablet Lactobacillus acidophilus 0.5 mg 1,000 mmu cells PO DAILY 05/11/25 07/10/25 History (100 million cell) tablet donepezil 10 mg tablet 10 mg PO DAILY 05/11/25 07/10/25 History fluticasone propionate 50 2 spray intranasal DAILY 05/11/25 07/10/25 History mcg/actuation nasal spray,suspension methenamine hippurate 1 gram tablet 1 g PO BID 05/11/25 07/10/25 History nitroglycerin 0.4 mg sublingual 0.4 mg sublingual DIRECTED PRN 05/11/25 07/10/25 History tablet (Nitrostat) Chest Pain nystatin-triamcinolone 100,000 1 applic topical BID 05/11/25 07/10/25 History unit/gram-0.1 % topical ointment oxybutynin chloride 5 mg/5 mL oral 15 mg DIRECTED 05/11/25 07/10/25 History syrup polyethylene glycol 3350 17 gram 17 g PO DAILY 05/11/25 07/10/25 History oral powder packet senna-docusate sodium tablet 1 tab PO BID 05/11/25 07/10/25 History cefdinir 300 mg capsule 300 mg PO Q12H 5 days #10 caps 07/08/25 07/10/25 Rx Past Med/Surg History Problem List (Updated 07/10/25 @ 18:55 by Thuan Montemayor DO) Chronic anemia (Acute) Current chronic use of systemic steroids (Acute) Chronic indwelling Devlin catheter (Acute) Complicated UTI (urinary tract infection) (Acute) Acute UTI (Acute) Fall (Acute) Acute kidney injury superimposed on stage 3b chronic kidney disease Diarrhea Hypertensive urgency Devlin catheter in place prior to arrival Complicated UTI (urinary tract infection) History of prostate cancer Severe aortic stenosis Orthostatic hypotension Fall (Acute) Elevated lactic acid level (Acute) Complicated urinary tract infection (Acute) Hypertension History of DVT (deep vein thrombosis) hx "many years ago" unknown etiology acute on chronic DVT during 12/2022 [facility] admission- Coumadin d/c'ed due to anemia and hematuria; IVC filter placed 12/28/22 COPD (chronic obstructive pulmonary disease) Anemia Urinary tract infection associated with indwelling urethral catheter (Acute) Confusion (Acute) Dementia (Acute) Mild cognitive impairment (Acute) Obstructive sleep apnea (Acute) Adrenal insufficiency (Acute 06/04/14) Stage 3 chronic kidney disease (Acute) History of pulmonary embolism hx "many years ago" unknown etiology Aortic stenosis Severe per 12/08/2024 [facility] Medical History Fall from chair, initial encounter Ambulatory dysfunction VRE (vancomycin-resistant Enterococci) Cellulitis Cellulitis of right leg Acute UTI Aspiration pneumonia Chronic indwelling Devlin catheter Complicated urinary tract infection Acute kidney injury superimposed on chronic kidney disease Parainfluenza infection Influenza A (H1N1) Acute hypokalemia Delirium Chronic indwelling Devlin catheter Bladder cancer Weakness Recurrent UTI Anxiety Elevated blood pressure reading Complicated UTI (urinary tract infection) Myocarditis Primary bladder malignant neoplasm Coagulopathy Fracture of multiple teeth Sacral pressure sore Urethral stricture Ascending aorta dilation Mild- 4.4cm per 11/2022 [facility] Obesity Venous insufficiency (chronic) (peripheral) Radiation cystitis Kidney stones x1 episode. no surgery needed. Cardiac arrest hx r/t IV Contrast Dye "many years ago" Allergic rhinitis Contrast media allergy Hiatal hernia Surgical History S/P IVC filter S/P cataract extraction History of right cataract extraction History of colonoscopy H/O sinus surgery History of appendectomy S/P TURP (status post transurethral resection of prostate) Status post cystoscopy (11/07/13) Family History Father Prostate cancer Brother Prostate cancer Mother Thyroid cancer Cancer Other No family history of adverse response to anesthesia Social History Smoking Status: Never smoker Second Hand Exposure: No; Do You Dip or Chew Tobacco: No; Tobacco Cessation Education Requested by Patient: No Hx Alcohol Use: No Hx Substance Use: No Preferred Language: Swazi Communication Ability: Effective Visual Impairment: Limited Hearing Ability: Normal Electron Microprobe Operator Required: No Beliefs That Will Affect Care: None marital status: Current Living Situation: Spouse Current Living Situation Comment: Jen current occupational status: retired How many Children do You have: 0 Other Information That Helps Us Care for You: No Feels Safe at Home: Yes Safety Concerns: Feels Safe At This Time Diet: regular during the past year weight has: decreased > 10 lbs Seatbelt Use: always Do you think of yourself as: straight/heterosexual Gender Identity: Male Assistive Devices: Glasses and Walker Review of Systems Review of Systems: At least ten systems reviewed and negative, except as noted in the HPI. Physical Exam Physical Exam: General: Elderly, chronically ill-appearing. A&Ox3. , Ivet, at bedside. HEENT: Normocephalic, atraumatic. Somewhat dry mucous membranes. Respiratory: Normal respiratory effort, CTAB. Saturating well on RA. Cardiovascular: RRR, normal peripheral pulses. No BLE edema, + dry BLE skin. Abdomen/GI: Normal bowel sounds, soft, nontender to palpation in all quadrants. : Chronic indwelling Devlin catheter intact and draining yellow urine output with some sediment. Extremities/Musculoskeletal: No cyanosis or clubbing, extremities motor strength intact, moves all extremities. Neurologic: No overt focal deficits, CN's II-XI not formally tested but appear grossly intact bilaterally. Results & Data Results & Data Vital Signs (Past 12 Hours) Vital Signs Temp Pulse Pulse Resp BP BP Pulse Ox 07/10/25 13:24 60 07/10/25 13:14 37.5 C 57 L 16 153/79 H 99 07/10/25 13:13 59 L 16 99 07/10/25 12:23 35.9 C L 83 18 105/63 100 O2 Del Method 07/10/25 13:24 07/10/25 13:14 Room Air 07/10/25 13:13 Room Air 07/10/25 12:23 Room Air Laboratory Results Short CBC 07/10/25 Range/Units 13:15 WBC 7.29 (4.8-10.8) K/ul Hgb 13.7 L (14.0-18.0) g/dL Hct 41.4 L (42.0-52.0) % Plt Count 190 (130-400) K/uL BMP 07/10/25 13:15 Sodium 143 Potassium 3.7 Chloride 107 Carbon Dioxide 29 BUN 20 Creatinine 1.34 Glucose 129 H Calcium 8.9 Liver Function 07/10/25 Range/Units 13:15 Total Bilirubin 1.0 (0.2-1.0) mg/dl AST 11 L (13-39) U/L ALT 9 (7-52) U/L Alkaline Phosphatase 94 (34-104) U/L Albumin 3.7 (3.4-5.0) gm/dl Urine 07/10/25 Range/Units 13:05 Urine Color Yellow Urine Appearance Turbid A (Clear) Urine pH 5.5 (4.5-7.5) Ur Specific [place] 1.024 (1.000-1.030) Urine Protein 2+ H (Negative) Urine Glucose (UA) Negative (Negative) Medications Administered Discontinued Medications Ceftriaxone Sodium (Rocephin) 2,000 mg in 50 mls @ 100 mls/hr IV NOW STA Stop: 07/10/25 13:48 Last Admin: 07/10/25 14:29 Dose: 100 mls/hr Documented By: MARGE Daptomycin 1,000 mg/ Syringe 20 mls @ 10 mls/min IV NOW ONE; Protocol Stop: 07/10/25 13:31 Last Admin: 07/10/25 14:30 Dose: 10 mls/min Documented By: MARGE Supervising Physician Co-Signing Physician Notes Attending addendum: Patient was seen and examined in the emergency room in presence of the He was complaining of possible syncope at home but in fact he was advised to come in as urine culture grew E. coli and MRSA taken on 07/08/2025 Denies any fever and/or chills, no nausea no vomiting and has indwelling Devlin catheter Complaints to have weakness On examination Lying in bed without any acute distress Afebrile and hemodynamically stable with blood pressure on the upper side at 153/79 Chestclear to auscultate bilaterally HeartS1, S2 regular Abdomenbenign, nontender hypogastrium and no tenderness in the renal angles Extremitiesno edema CNSalert and awake and oriented. Generally weak but no focal sensory and/or motor neurodeficit noted His admission labs noted to be unremarkable but urine CS grew E. coli and Staph aureus MRSA He was started with intravenous ceftriaxone and daptomycin and will be admitted to medical floor for continuation of care He has an indwelling Devlin catheter secondary to history of bladder cancer status post surgery and also prostate cancer status post radiation therapy His other significant chronic medical conditions as mentioned above remains stable and managed accordingly Agree with assessment plan as outlined above by Bess Crandall PA-C and take the full responsibility of care in the hospital Total time taken to examining the patient, reviewing the chart and imaging studies and medications and planning the care was [address] Alexandra Devlin
--- NOTE | 2025-07-10 14:45 | Emergency Department Note ---
Impression & Plan Complicated UTI (urinary tract infection), Chronic indwelling Devlin catheter, Current chronic use of systemic steroids, Chronic anemia ED Provider Note NAME: EDWIN ESPANA AGE: 79 SEX: M : 1945 ARRIVES VIA: Walk-In INFORMANT: Patient, ED PROVIDER(S): Thuan Montemayor DO CHIEF COMPLAINT: UTI HPI: This is a 79-year-old male with the PMHx of severe aortic stenosis with TAVR scheduled for next week, bladder cancer, prostate cancer, adrenal insufficiency on chronic steroids, CKD, COPD/asthma, ANDRZEJ, recurrent UTIs in the setting of chronic urethral catheter presenting to [facility] for further evaluation of complicated UTI. Patient is accompanied by his who provide additional history. the patient's is very concerned regarding complicated UTI on recent urinalysis after urethral catheter exchange. Patient is reportedly growing both E. coli as well as MRSA. Patient is scheduled for a cystoscopy with urology tomorrow. He is also scheduled for TAVR as an outpatient next week. would like the infection to be treated prior to these events as this may prevent him from having surgery. She is also ill with URI and struggling to provide adequate care. They deny fever or chills. No cough or congestion. Denies chest pain or palpitations. No shortness of breath. They deny abdominal pain, nausea and vomiting. No urinary complaints. No recent changes in bowel movements. Patient denies recent changes in medications or OTC supplements. Patient offers no other complaints, today. ADDITIONAL HISTORY OBTAINED: Per HPI Chronic Medical/Social Conditions Affecting Care: Per HPI PAST MEDICAL HISTORY: See Below PAST SURGICAL HISTORY: See Below FAMILY HISTORY: See Below SOCIAL HISTORY: See Below HOME MEDICATIONS: See Below ALLERGIES: See Below VITALS: See Below PHYSICAL EXAMINATION: GENERAL: Alert, well developed, well nourished, no acute distress HEAD: Normocephalic, atraumatic EYES: EOM's intact, sclera anicteric, conjunctiva clear OROPHARYNX: Airway patent and mucous membranes moist LUNGS: No respiratory distress, normal respiratory rate and effort HEART: Well perfused, regular rate ABDOMEN: Abdomen non-distended SKIN: Normal color, dry EXTREMITIES: No gross deformities, no edema NEURO: Alert, oriented x3, appropriate for age, moves all four extremities, normal speech MEDICAL DECISION MAKING: Differential diagnoses includes but not limited to complicated UTI, chronic colonization, electrolyte derangements, dehydration, bacteremia In summary, this is a 79 year old male who presented with complicated UTI. Differential as above. Nursing notes and pertinent past medical records reviewed. Vital signs reviewed and the patient is mildly hypertensive but otherwise afebrile and hemodynamically stable. History and presentation revealed as above. Of note, patient was recently evaluated in the prior days for fall at home. Urinalysis was collected after his chronic urethral catheter was exchanged. Patient's urine culture shows evidence of E. coli as well as MRSA infection. The patient and his had extensive discussions with the ED pharmacist this morning leading to return to the emergency department. Does appear that he was discharged on a cephalosporin. Patient has never grown MRSA in the past. [place] to be less likely a contamination at this time. They were recommended to return to the emergency department. is very concerned given his scheduled TAVR. She also reports that she herself has a current illness consistent with influenza. She states that she has been struggling to take care of the patient. She is requesting admission for IV antibiotics given that he is scheduled for procedure soon including a cystoscopy with urology tomorrow. Physical examination revealed as above. As a result of my initial evaluation, we will plan to repeat lab work including blood cultures. Had a thorough discussion with the ED pharmacist regarding antibiotic choice. Patient was placed on dual coverage in the emergency department. Diagnostics interpreted by me include cardiac monitoring as listed below: -Cardiac Monitoring: An order was placed for continuous cardiac monitoring. The monitor shows a rate of 50-80s with regular rhythm. No imaging was necessary at this visit. Results independently interpreted by me are mild anemia stable as compared to prior. No significant elevation in procalcitonin or leukocytosis. There is no significant electrolyte derangements or significant kidney dysfunction from baseline. No changes in LFTs. Urinalysis does appear infected again. The patient is not septic appearing. He does not meet any SIRS criteria. Given atypical bacteria on urine culture, will utilize broad-spectrum antibiotics with prior history of resistant organisms. Blood cultures were obtained but very minimal suspicion for bacteremia. The patient was managed with IV ceftriaxone and daptomycin. is concerned given scheduled procedures and feels that he needs to be admitted for IV antibiotics. I do feel this is reasonable given complex UTIs with resistant bacteria in the past. Do feel that IV antibiotics are warranted as well as close observation inpatient. The patient's complicated UTI is further complicated by his chronic immunosuppression secondary to adrenal insufficiency on chronic steroids. Ultimately, the decision was made to admit the patient for complicated UTI in the setting of chronic indwelling urethral catheter. I discussed the case with the hospitalist service via telephone/TigerText and they are agreeable to admit the patient to their services by Dr. Devlin, [facility] Hospitalist team. Based on the above, including the patient's age, coexisting illnesses, labs, imaging, and exam findings the decision to treat as an inpatient. I discussed the patient with the hospitalist team who recommended admission to their services. They received the medications, treatments, interventions indicated above and their condition remained stable. I discussed my findings with the patient and their family and they understand and agree with the treatment plan. All patient / family questions were answered to their satisfaction. Consults/Care Managements Discussions: Per [facility] ER treatment provided: See above Procedures:none Critical Care: None The chart was completed utilizing Freever Speech voice recognition software. Grammatical errors, random word insertions, pronoun errors, and incomplete sentences are an occasional consequence of this system due to software limitations, ambient noise, and hardware issues. Any formal questions or concerns about the content, text, or information contained within the body of this dictation should be directly addressed to the physician for clarification. Past Med/Surg History Problem List (Updated 07/10/25 @ 18:55 by Thuan Montemayor DO) Chronic anemia (Acute) Current chronic use of systemic steroids (Acute) Chronic indwelling Devlin catheter (Acute) Complicated UTI (urinary tract infection) (Acute) Acute UTI (Acute) Fall (Acute) Acute kidney injury superimposed on stage 3b chronic kidney disease Diarrhea Hypertensive urgency Devlin catheter in place prior to arrival Complicated UTI (urinary tract infection) History of prostate cancer Severe aortic stenosis Orthostatic hypotension Fall (Acute) Elevated lactic acid level (Acute) Complicated urinary tract infection (Acute) Hypertension History of DVT (deep vein thrombosis) hx "many years ago" unknown etiology acute on chronic DVT during 12/2022 [facility] admission- Coumadin d/c'ed due to anemia and hematuria; IVC filter placed 12/28/22 COPD (chronic obstructive pulmonary disease) Anemia Urinary tract infection associated with indwelling urethral catheter (Acute) Confusion (Acute) Dementia (Acute) Mild cognitive impairment (Acute) Obstructive sleep apnea (Acute) Adrenal insufficiency (Acute 06/04/14) Stage 3 chronic kidney disease (Acute) History of pulmonary embolism hx "many years ago" unknown etiology Aortic stenosis Severe per 12/08/2024 [facility] Medical History Fall from chair, initial encounter Ambulatory dysfunction VRE (vancomycin-resistant Enterococci) Cellulitis Cellulitis of right leg Acute UTI Aspiration pneumonia Chronic indwelling Devlin catheter Complicated urinary tract infection Acute kidney injury superimposed on chronic kidney disease Parainfluenza infection Influenza A (H1N1) Acute hypokalemia Delirium Chronic indwelling Devlin catheter Bladder cancer Weakness Recurrent UTI Anxiety Elevated blood pressure reading Complicated UTI (urinary tract infection) Myocarditis Primary bladder malignant neoplasm Coagulopathy Fracture of multiple teeth Sacral pressure sore Urethral stricture Ascending aorta dilation Mild- 4.4cm per 11/2022 [facility] Obesity Venous insufficiency (chronic) (peripheral) Radiation cystitis Kidney stones x1 episode. no surgery needed. Cardiac arrest hx r/t IV Contrast Dye "many years ago" Allergic rhinitis Contrast media allergy Hiatal hernia Surgical History S/P IVC filter S/P cataract extraction History of right cataract extraction History of colonoscopy H/O sinus surgery History of appendectomy S/P TURP (status post transurethral resection of prostate) Status post cystoscopy (11/07/13) Family History Father Prostate cancer Brother Prostate cancer Mother Thyroid cancer Cancer Other No family history of adverse response to anesthesia Social History Smoking Status: Never smoker Second Hand Exposure: No; Do You Dip or Chew Tobacco: No; Tobacco Cessation Education Requested by Patient: No Hx Alcohol Use: No Hx Substance Use: No Preferred Language: Cypriot Communication Ability: Effective Visual Impairment: Limited Hearing Ability: Normal Pricing Actuary Required: No Beliefs That Will Affect Care: None marital status: Current Living Situation: Spouse Current Living Situation Comment: [facility] current occupational status: retired How many Children do You have: 0 Other Information That Helps Us Care for You: No Feels Safe at Home: Yes Safety Concerns: Feels Safe At This Time Diet: regular during the past year weight has: decreased > 10 lbs Seatbelt Use: always Do you think of yourself as: straight/heterosexual Gender Identity: Male Assistive Devices: Glasses and Walker Allergies Allergies Allergy/AdvReac Type Severity Reaction Status Date / Time Iodinated Contrast Media Allergy Severe LOVERSOL---CARDIAC Verified 11/12/24 20:[address] CONTRAST clindamycin Allergy Intermediate Rash Verified 11/12/24 20:27 cranberry Allergy Unknown Unknown Verified 11/12/24 20:27 caffeine Allergy Verified 11/13/24 15:45 chocolate flavor AdvReac Severe DIARRHEA/ Verified 11/12/24 20:27 Cannot take, interacts w/ medications. pembrolizumab [From Pongr] AdvReac Intermediate myocarditis Verified 11/12/24 20:27 Home Meds Home Medications Medication Instructions Recorded Confirmed albuterol sulfate 90 mcg/actuation 2 puff inhalation Q6H PRN 08/21/24 07/10/25 aerosol inhaler Shortness Of Breath Or Wheezing fludrocortisone 0.1 mg tablet 0.1 mg PO DAILY 08/21/24 07/10/25 ferrous sulfate 325 mg (65 mg 325 mg PO 3XWK 11/03/24 07/10/25 iron) tablet,delayed release hydrocortisone 10 mg tablet 10 mg PO .DAILY @ 1500 11/03/24 07/10/25 (Cortef) Lactobacillus acidophilus 0.5 mg 1,000 mmu cells PO DAILY 05/11/25 07/10/25 (100 million cell) tablet donepezil 10 mg tablet 10 mg PO DAILY 05/11/25 07/10/25 fluticasone propionate 50 2 spray intranasal DAILY 05/11/25 07/10/25 mcg/actuation nasal spray,suspension methenamine hippurate 1 gram tablet 1 g PO BID 05/11/25 07/10/25 nitroglycerin 0.4 mg sublingual 0.4 mg sublingual DIRECTED PRN 05/11/25 07/10/25 tablet (Nitrostat) Chest Pain nystatin-triamcinolone 100,000 1 applic topical BID 05/11/25 07/10/25 unit/gram-0.1 % topical ointment oxybutynin chloride 5 mg/5 mL oral 15 mg DIRECTED 05/11/25 07/10/25 syrup polyethylene glycol 3350 17 gram 17 g PO DAILY 05/11/25 07/10/25 oral powder packet senna-docusate sodium tablet 1 tab PO BID 05/11/25 07/10/25 Previous Rx's Medication Instructions Recorded ascorbic acid (vitamin C) 1,000 mg 1,000 mg PO DAILY #30 tabs 06/08/24 tablet cholecalciferol (vitamin D3) 125 125 mcg PO DAILY #30 tabs 06/08/24 mcg (5,000 unit) tablet (Vitamin D3) cyanocobalamin (vitamin B-12) 1,000 mcg PO DAILY #30 tabs 06/08/24 1,000 mcg tablet epinephrine 0.3 mg/0.3 mL 0.3 mg (0.3 mL) IM UD PRN 06/08/24 injection, auto-injector Anaphylaxis #3 ea fluticasone fur. 200 mcg-umeclid 1 inh inhalation DAILY #1 ea 06/08/24 62.5 mcg-vilant 25 mcg inhalat.powder (Trelegy Ellipta) lidocaine 5 % topical patch 2 patch transdermal DAILY #20 ea 06/08/24 memantine 10 mg tablet 10 mg PO BID #60 tabs 06/08/24 omeprazole 20 mg capsule,delayed 20 mg PO DAILY #30 caps 06/08/24 release solifenacin 5 mg tablet 5 mg PO DAILY #30 tabs 06/08/24 hydrocortisone 10 mg tablet 20 mg (2 x 10 mg) PO QAM #0 tabs 07/07/24 (Cortef) apixaban 2.5 mg tablet (Eliquis) 2.5 mg PO BID #60 tabs 11/16/24 buspirone 5 mg tablet 5 mg PO TID #90 tabs 12/28/24 mirabegron 50 mg tablet,extended 50 mg PO DAILY #30 tabs 12/28/24 release 24 hr thiamine HCl (vitamin B1) 100 mg 100 mg PO QAM #30 tabs 12/28/24 tablet cefdinir 300 mg capsule 300 mg PO Q12H 5 days #10 caps 07/08/25 Results & Data (ED) Vital Signs Vital Signs - 24 hr 07/10/25 12:23 07/10/25 13:13 07/10/25 13:14 Temperature 35.9 C L 37.5 C Temperature Source Temporal Artery Scan Oral Pulse Rate 83 59 L Pulse Rate [Left Finger] 57 L Pulse Rhythm Regular Pulse Rhythm [Left Finger] Regular Pulse Strength [Left Finger] Normal Respiratory Rate 18 16 16 Respiratory Effort / Characteristics Non-Labored Spontaneous Non-Labored Respiratory Depth Normal Normal Respiratory Pattern Regular Regular Blood Pressure 105/63 Blood Pressure [Left Arm] 153/79 H Blood Pressure Mean 77 Blood Pressure Mean [Left Arm] 103 Blood Pressure Position [Left Arm] Semi-fowlers Pulse Oximetry 100 99 99 Oxygen Delivery Method Room Air Room Air Room Air Sepsis Recent Fever Within 48 Hours No Sepsis New/Unexplained Change in Mental Status N/A Sepsis Action Taken by Nursing No Action Required 07/10/25 13:24 07/10/25 15:00 Temperature Temperature Source Pulse Rate 60 Pulse Rate [Left Finger] 60 Pulse Rhythm Pulse Rhythm [Left Finger] Pulse Strength [Left Finger] Respiratory Rate 18 Respiratory Effort / Characteristics Non-Labored Spontaneous Respiratory Depth Normal Respiratory Pattern Regular Blood Pressure Blood Pressure [Left Arm] 170/84 H Blood Pressure Mean Blood Pressure Mean [Left Arm] 112 Blood Pressure Position [Left Arm] Pulse Oximetry 98 Oxygen Delivery Method Room Air Sepsis Recent Fever Within 48 Hours Sepsis New/Unexplained Change in Mental Status Sepsis Action Taken by Nursing Laboratory Data 07/10/25 13:15 07/10/25 13:15 Lab Results 07/10/25 07/10/25 Range/Units 13:05 13:15 WBC 7.29 (4.8-10.8) K/ul RBC 4.64 L (4.70-6.10) M/uL Hgb 13.7 L (14.0-18.0) g/dL Hct 41.4 L (42.0-52.0) % MCV 89.2 (80.0-100.0) fL MCH 29.5 (25.0-34.0) pg MCHC 33.1 (32.0-36.0) g/dL RDW Std Deviation 46.8 H (36.4-46.3) fL RDW Coeff of Robert 14.6 H (11.5-14.5) % Plt Count 190 (130-400) K/uL MPV 8.8 L (9.4-12.4) fL Immature Gran % (Auto) 0.3 % Neut % (Auto) 85.9 % Lymph % (Auto) 8.4 % Henderson % (Auto) 3.7 % Eos % (Auto) 1.6 % Baso % (Auto) 0.1 % Neut # (Auto) 6.26 (1.40-6.50) K/uL Lymph # (Auto) 0.61 L (1.20-3.40) K/uL Henderson # (Auto) 0.27 (0.11-0.59) K/uL Eos # (Auto) 0.12 (0.00-0.50) K/uL Baso # (Auto) 0.01 (0.00-0.20) K/uL Immature Gran # (Auto) 0.02 (0.01-0.20) K/uL Sodium 143 (136-145) mmol/L Potassium 3.7 (3.5-5.1) mmol/L Chloride 107 (98-107) mmol/L Carbon Dioxide 29 (21-32) mmol/L Anion Gap 7 (3-11) BUN 20 (6-23) mg/dl Creatinine 1.34 (0.6-1.4) mg/dl Est Cr Clr Drug Dosing 57.2 ml/min eGFR 54.22 BUN/Creatinine Ratio 14.9 (10-20) Glucose 129 H (70-99(Fasting)) mg/dl Calcium 8.9 (8.6-10.3) mg/dl Total Bilirubin 1.0 (0.2-1.0) mg/dl AST 11 L (13-39) U/L ALT 9 (7-52) U/L Alkaline Phosphatase 94 (34-104) U/L Total Protein 6.4 (6.0-8.3) gm/dl Albumin 3.7 (3.4-5.0) gm/dl Globulin 2.7 (2.5-4.0) gm/dl Albumin/Globulin Ratio 1.4 (0.9-2) Lipase 5 L (11-82) U/L Procalcitonin 0.08 (0-0.5) ng/ml Urine Color Yellow Urine Appearance Turbid A (Clear) Urine pH 5.5 (4.5-7.5) Ur Specific Smiley 1.024 (1.000-1.030) Urine Protein 2+ H (Negative) Urine Glucose (UA) Negative (Negative) Urine Ketones Trace H (Negative) Urine Blood 3+ H (Negative) Urine Nitrite Positive A (Negative) Urine Bilirubin Negative (Negative) Urine Urobilinogen Negative (Negative) Ur Leukocyte Esterase 3+ H (Negative) Urine WBC (Auto) >50 H (0-5) /hpf Urine RBC (Auto) >20 H (0-2) /hpf U Hyaline Cast (Auto) 6-10 H (0-2) /lpf U Epithel Cells (Auto) 0-2 (0-2) /hpf Urine Bacteria (Auto) 2+ H (None Seen) Urine Mucus Present A (None Prsent) Urine Yeast Present A (None Prsent) Urine Comment Administered Medications Hydrocortisone (Hydrocortisone 10 Mg Tab) 10 mg PO DAILY@1500 TAWNY Stop: 08/09/25 17:14 Last Admin: 07/10/25 18:21 Dose: 10 mg Documented By: VGS Discontinued Medications Ceftriaxone Sodium (Rocephin) 2,000 mg in 50 mls @ 100 mls/hr IV NOW STA Stop: 07/10/25 13:48 Last Infusion: 07/10/25 15:00 Dose: Infused Documented By: Admin: 07/10/25 14:29 Dose: 100 mls/hr Documented By: MARGE Daptomycin 1,000 mg/ Syringe 20 mls @ 10 mls/min IV NOW ONE; Protocol Stop: 07/10/25 13:31 Last Admin: 07/10/25 14:30 Dose: 10 mls/min Documented By: MARGE Imaging Data Radiologist's Impression: Chest X-Ray 07/10/25 15:31 Clinical History: Cough and congestion Technique: A frontal view of the chest was obtained Comparison is made to the prior examination dated 07/08/2025 Findings: There is unchanged mild left lung base opacity that may be due to atelectasis or scar. The heart size is within normal limits. No pleural effusion or pneumothorax is seen. There is no definite pulmonary nodule. No fracture is noted. No foreign body is seen Impression: Unchanged mild left lung base opacity, likely due to atelectasis or scar Electronically signed by Piyush Andersen 07-10-2025 4:58 PM Discharge Plan Visit Data Chief Complaint: Referred by Doctor Stated Complaint: RE EVALUTATED ED Provider: Thuan Montemayor Discharge Problem: Complicated UTI (urinary tract infection), Chronic indwelling Devlin catheter, Current chronic use of systemic steroids, Chronic anemia Patient Disposition: Admitted As Inpatient Condition: Fair Discharge Instructions Interventions: ED Discharge Assessment Last Done: 07/10/25 16:50
[2025-07-10 16:42] LABS: Chlamydia pneumoniae PCR Not Detected (NotDetected); Coronavirus 229E PCR Not Detected (NotDetected); Coronavirus CoV-2 (COVID19)PCR Not Detected (NotDetected); Coronavirus HKU1 PCR Not Detected (NotDetected); Coronavirus NL63 PCR Not Detected (NotDetected); Coronavirus OC43PCR Not Detected (NotDetected); Human Metapneumovirus PCR Not Detected (NotDetected); Parainfluenza Virus 1 PCR Not Detected (NotDetected); Parainfluenza Virus 2 PCR Not Detected (NotDetected); Parainfluenza Virus 3 PCR Not Detected (NotDetected); Parainfluenza Virus 4 PCR Not Detected (NotDetected); Respiratory Syncytial VirusPCR Not Detected (NotDetected); Rhinovirus/Enterovirus PCR Not Detected (NotDetected)
--- NOTE | 2025-07-10 16:59 | XRay Report ---
Clinical History: Cough and congestion Technique: A frontal view of the chest was obtained Comparison is made to the prior examination dated 07/08/2025 Findings: There is unchanged mild left lung base opacity that may be due to atelectasis or scar. The heart size is within normal limits. No pleural effusion or pneumothorax is seen. There is no definite pulmonary nodule. No fracture is noted. No foreign body is seen Impression: Unchanged mild left lung base opacity, likely due to atelectasis or scar Electronically signed by Piyush Andersen 07-10-2025 4:58 PM
[2025-07-10] MEDS ORDERED: ONDANSETRON INJ 2 MG/ML 2 ML VIAL IV PRN (17:10)
[2025-07-10] MEDS ORDERED: ALUMINUM/MAGNESIUM SUSP 30 ML UDC PO PRN (17:10)
[2025-07-10] MEDS ORDERED: MAGNESIUM HYDROXIDE SUSP 30 ML UDC PO PRN (17:10)
[2025-07-10] MEDS ORDERED: ACETAMINOPHEN 325 MG TAB PO PRN (17:10)
[2025-07-10] MEDS ORDERED: POLYETHYLENE (MIRALAX) 17 GM PACK PO PRN (17:10)
[2025-07-10] MEDS: HYDROCORTISONE 10 MG TAB PO SCH (18:21)
[2025-07-10] MEDS: DOCUSATE SODIUM/SENNA 50/8.6MG TAB PO SCH (20:09)
[2025-07-10] MEDS: busPIRone 5 MG TAB PO SCH (20:10)
[2025-07-10] MEDS: AMMONIUM LACTATE 12% LOTION 225 GM BTL EXT SCH (20:10)
[2025-07-10] MEDS: guaiFENesin 600 MG TABCR PO SCH (20:10)
[2025-07-10] MEDS: MEMANTINE HCL 10 MG TAB PO SCH (20:10)
[2025-07-10] MEDS: APIXABAN 2.5 MG TAB PO SCH (20:10)
[2025-07-11 06:12] LABS: Hematocrit (blood only) 37.3 % (42.0-52.0); Hemoglobin 12.4 g/dL (14.0-18.0); Mean Corpuscular Hemoglobin 29.2 pg (25.0-34.0); Mean Corpuscular Volume 88.0 fL (80.0-100.0); Platelet Count 177 K/uL (130-400); RDW Standard Deviation 46.5 fL (36.4-46.3); Red Blood Count 4.24 M/uL (4.70-6.10); White Blood Count 5.71 K/ul (4.8-10.8)
[2025-07-11 06:35] LABS: Anion Gap 7.0 (3-11); Blood Urea Nitrogen 19.0 mg/dl (6-23); Calcium 8.4 mg/dl (8.6-10.3); Carbon Dioxide 28.0 mmol/L (21-32); Chloride 108.0 mmol/L (98-107); Creatinine Clr Calc Pharmacy 57.5 ml/min; Glucose 92.0 mg/dl (70-99(Fasting)); Magnesium 1.9 mg/dl (1.7-2.4); Potassium 3.3 mmol/L (3.5-5.1); Sodium 143.0 mmol/L (136-145)
[2025-07-11] MEDS: CHOLECALCIFEROL 125 MCG (5,000 UNITS) TAB PO SCH (07:58)
[2025-07-11] MEDS: FERROUS SULFATE 325 MG TAB PO SCH (07:58)
[2025-07-11] MEDS: CYANOCOBALAMIN (B-12) 500 MCG TABLET PO SCH (07:58)
[2025-07-11] MEDS: ADVANCED PROBIOTIC 625 MG CAPSULE PO SCH (07:59)
[2025-07-11] MEDS: THIAMINE HCL 100 MG TAB PO SCH (07:59)
[2025-07-11] MEDS: HYDROCORTISONE 10 MG TAB PO SCH (07:59)
[2025-07-11] MEDS: VIBEGRON 75 MG TAB PO SCH (07:59)
[2025-07-11] MEDS: FLUTICASONE FUROATE 200MCG 14 PUFFS/INHALER INH SCH (08:00)
[2025-07-11] MEDS: FLUTICASONE PROPIONATE NA SPR 16 GM BTL SCH (08:00)
[2025-07-11] MEDS: UMECLIDINIUM/VILANTEROL 62.5/25MCG 7 PUFFS/INHALER INH SCH (08:00)
[2025-07-11] MEDS: OXYBUTYNIN CHLORIDE XL 5 MG TABCR PO SCH (08:01)
[2025-07-11] MEDS: DONEPEZIL HCL 10 MG TAB PO SCH (08:01)
[2025-07-11] MEDS: FLUDROCORTISONE ACETATE 0.1 MG TAB PO SCH (08:01)
[2025-07-11] MEDS: POLYETHYLENE (MIRALAX) 17 GM PACK PO SCH (08:11)
[2025-07-11] MEDS ORDERED: NON-FORMULARY MEDICATION (Fluticasone-Umeclidin-Vilanter [Trelegy Ellipta] 200-62.5-25 mcg INH SCH (09:00)
[2025-07-11] MEDS: POTASSIUM CHLORIDE CRTAB 20 MEQ TABCR PO STA (09:43)
--- NOTE | 2025-07-11 13:20 | Hospitalist Progress Note ---
Date of Service July 11, 2025 Assessment & Plan (1) Complicated UTI (urinary tract infection): (2) Chronic indwelling Tatum catheter: Plan Mr. 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 coli and MRSA. #Complicated UTI #Chronic indwelling Tatum catheter 2/2 history of bladder CA s/p surgery and prostate CA s/p radiation therapy -UTI secondary to chronic tatum catheter -Urine cx from ED visit on 07/08 growing E. coli and MRSA -No s/s sepsis -Currently on CTX and daptomycin Plan -Continue CTX to treat E. 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 Tentatively scheduled for TAVR on 07/20/25. #CKD stage IIIb Creatinine stable, baseline creatinine around 1.2-1.5 per chart review. Continue to monitor and avoid nephrotoxic agents as able. #History of DVT/PE s/p IVC filter placement chronically anticoagulated on Eliquis Continue Eliquis. #Chronic anemia Stable, continue Fe supplementation and daily CBC monitoring. No s/s acute blood loss #Chronic adrenal insufficiency Continue hydrocortisone, fludrocortisone. #Mild cognitive impairment Mentation status at baseline, continue memantine and donepezil. Delirium precautions. #COPD Reports nonproductive cough, some sinus congestion x 1 week. diagnosed with influenza 07/10 Due to him being high risk, will give post exposure prophylaxis tamiflu x 5 days #Hypokalemia -Replace and follow DVT Prophylaxis: Eliquis Code Status: FULL CODE PCP: Chuy Batista MD I spent a total of 65 minutes coordinating, documenting, and providing care for this patient excluding time spent in the performance of separately billed services. This included personally reviewing all current laboratories and imaging studies, medical reconciliation, outpatient chart review and discussion with specialists Admission and Anticipated Discharge Date Admission Date: July 10, 2025 Subjective Feeling well today. Patient denies F/C, CP, palpitations, SOB, dyspnea, abd pain, N/V/D Physical Exam Physical Exam: Vitals and labs reviewed General: chronically ill appearing NAD HEENT: EOMI, PERRLA Neck: Supple Cardiac: RRR no rubs gallops or murmurs Lungs: CTA no rhonchi wheezing or rales Abd: S NT ND BS positive : Tatum MSK: Full ROM. No obvious deformities Ext: No Edema cyanosis Skin: Warm, Dry Neuro: AOx3 No focal deficits. Psych: Normal Mood Results & Data Results & Data Vital Signs (Past 12 Hours) Vital Signs Temp Pulse Resp BP Pulse Ox O2 Del Method 07/11/25 07:58 Room Air 07/11/25 07:55 36.6 C 62 18 157/78 H 100 Room Air Laboratory Results Abnormal lab results 07/10/25 07/10/25 07/10/25 Range/Units 13:05 13:15 15:41 RBC 4.64 L (4.70-6.10) M/uL Hgb 13.7 L (14.0-18.0) g/dL Hct 41.4 L (42.0-52.0) % RDW Std Deviation 46.8 H (36.4-46.3) fL RDW Coeff of Robert 14.6 H (11.5-14.5) % MPV 8.8 L (9.4-12.4) fL Lymph # (Auto) 0.61 L (1.20-3.40) K/uL Potassium (3.5-5.1) mmol/L Chloride (98-107) mmol/L Glucose 129 H (70-99(Fasting)) mg/dl Calcium (8.6-10.3) mg/dl AST 11 L (13-39) U/L Lipase 5 L (11-82) U/L Urine Appearance Turbid A (Clear) Urine Protein 2+ H (Negative) Urine Ketones Trace H (Negative) Urine Blood 3+ H (Negative) Urine Nitrite Positive A (Negative) Ur Leukocyte Esterase 3+ H (Negative) Urine WBC (Auto) >50 H (0-5) /hpf Urine RBC (Auto) >20 H (0-2) /hpf U Hyaline Cast (Auto) 6-10 H (0-2) /lpf Urine Bacteria (Auto) 2+ H (None Seen) Urine Mucus Present A (None Prsent) Urine Yeast Present A (None Prsent) Nasal Screen MRSA (PCR) Positive A (Negative) 07/11/25 Range/Units 05:51 RBC 4.24 L (4.70-6.10) M/uL Hgb 12.4 L (14.0-18.0) g/dL Hct 37.3 L (42.0-52.0) % RDW Std Deviation 46.5 H (36.4-46.3) fL RDW Coeff of Robert (11.5-14.5) % MPV 8.8 L (9.4-12.4) fL Lymph # (Auto) (1.20-3.40) K/uL Potassium 3.3 L (3.5-5.1) mmol/L Chloride 108 H (98-107) mmol/L Glucose (70-99(Fasting)) mg/dl Calcium 8.4 L (8.6-10.3) mg/dl AST (13-39) U/L Lipase (11-82) U/L Urine Appearance (Clear) Urine Protein (Negative) Urine Ketones (Negative) Urine Blood (Negative) Urine Nitrite (Negative) Ur Leukocyte Esterase (Negative) Urine WBC (Auto) (0-5) /hpf Urine RBC (Auto) (0-2) /hpf U Hyaline Cast (Auto) (0-2) /lpf Urine Bacteria (Auto) (None Seen) Urine Mucus (None Prsent) Urine Yeast (None Prsent) Nasal Screen MRSA (PCR) (Negative)
--- NOTE | 2025-07-11 13:34 | Urology Consultation ---
Date of Consultation July 11, 2025 Assessment & Plan (1) Chronic indwelling Devlin catheter: (2) Complicated UTI (urinary tract infection): Plan 79-year-old male with a history of prostate cancer status post radiation therapy and bladder cancer s/p surgery admitted for complicated UTI. Urology consulted for leakage around the catheter. Catheter was exchanged a few days ago per patient/nursing and is currently draining clear yellow urine. Catheter is patent so suspect he is having bladder spasms. He is already on oxybutynin and Gemtesa for bladder spasms, so other options are limited. Can consider increasing dose of Oxybutynin. Unfortunately, there are not many options for him at this point given that he requires the catheter and he is already on medications to prevent spasms/leakage. Can continue to monitor. Bladder scan PRN. Nursing can irrigate catheter PRN if there is suspected catheter obstruction. Continue antibiotic therapy for treatment of infection. He can follow-up with his primary urologist. Urology to sign off, please contact us with any further questions or concerns. History of Present Illness Attending Physician: Theo Pritchett, History of Present Illness 79-year-old male with complex medical history including bladder cancer s/p surgery and prostate cancer s/p radiation therapy who is admitted for complicated UTI. Per chart review- Patient was seen in the ED on 07/08/2025 after a fall out of bed. Urinalysis was suspicious for infection. He was given a dose of IV Rocephin in the ED. CT abdomen pelvis 07/08/2025 with no evidence of obstructing stone or hydronephrosis, Devlin catheter within the bladder. He was discharged home on oral cefdinir. Urine culture grew E. coli and Staph aureus MRSA. Pharmacy had contacted the patient/ regarding the urine culture results and due to concern of systemic symptoms, it was recommended he be brought into the ED for reevaluation. Patient follows with [facility] urology. He has significant incontinence and has been catheter bound. Patient seen and examined at bedside. He is awake and resting in bed on arrival. Devlin draining clear yellow urine. Denies suprapubic or abdominal discomfort. No fever or chills. Unfortunately he has had leakage around the catheter for some time. He is on oxybutynin and Gemtesa at present. He reports his catheter was exchanged a few days ago. He is afebrile and hemodynamically stable. Labs today show no leukocytosis and normal renal function. He is on ceftriaxone and Bactrim. Allergies Allergy/AdvReac Type Severity Reaction Status Date / Time Iodinated Contrast Media Allergy Severe LOVERSOL---CARDIAC Verified 11/12/24 20:[address] CONTRAST clindamycin Allergy Intermediate Rash Verified 11/12/24 20:27 cranberry Allergy Unknown Unknown Verified 11/12/24 20:27 caffeine Allergy Verified 11/13/24 15:45 chocolate flavor AdvReac Severe DIARRHEA/ Verified 11/12/24 20:27 Cannot take, interacts w/ medications. pembrolizumab [From [place]] AdvReac Intermediate myocarditis Verified 11/12/24 20:27 Home Medications Medication Instructions Recorded Confirmed Type ascorbic acid (vitamin C) 1,000 mg 1,000 mg PO DAILY #30 tabs 06/08/24 07/10/25 Rx tablet cholecalciferol (vitamin D3) 125 125 mcg PO DAILY #30 tabs 06/08/24 07/10/25 Rx mcg (5,000 unit) tablet (Vitamin D3) cyanocobalamin (vitamin B-12) 1,000 mcg PO DAILY #30 tabs 06/08/24 07/10/25 Rx 1,000 mcg tablet epinephrine 0.3 mg/0.3 mL 0.3 mg (0.3 mL) IM UD PRN 06/08/24 07/10/25 Rx injection, auto-injector Anaphylaxis #3 ea fluticasone fur. 200 mcg-umeclid 1 inh inhalation DAILY #1 ea 06/08/24 07/10/25 Rx 62.5 mcg-vilant 25 mcg inhalat.powder (Trelegy Ellipta) lidocaine 5 % topical patch 2 patch transdermal DAILY #20 ea 06/08/24 07/10/25 Rx memantine 10 mg tablet 10 mg PO BID #60 tabs 06/08/24 07/10/25 Rx omeprazole 20 mg capsule,delayed 20 mg PO DAILY #30 caps 06/08/24 07/10/25 Rx release solifenacin 5 mg tablet 5 mg PO DAILY #30 tabs 06/08/24 07/10/25 Rx hydrocortisone 10 mg tablet 20 mg (2 x 10 mg) PO QAM #0 tabs 07/07/24 07/10/25 Rx (Cortef) albuterol sulfate 90 mcg/actuation 2 puff inhalation Q6H PRN 08/21/24 07/10/25 History aerosol inhaler Shortness Of Breath Or Wheezing fludrocortisone 0.1 mg tablet 0.1 mg PO DAILY 08/21/24 07/10/25 History ferrous sulfate 325 mg (65 mg 325 mg PO 3XWK 11/03/24 07/10/25 History iron) tablet,delayed release hydrocortisone 10 mg tablet 10 mg PO .DAILY @ 1500 11/03/24 07/10/25 History (Cortef) apixaban 2.5 mg tablet (Eliquis) 2.5 mg PO BID #60 tabs 11/16/24 07/10/25 Rx buspirone 5 mg tablet 5 mg PO TID #90 tabs 12/28/24 07/10/25 Rx mirabegron 50 mg tablet,extended 50 mg PO DAILY #30 tabs 12/28/24 07/10/25 Rx release 24 hr thiamine HCl (vitamin B1) 100 mg 100 mg PO QAM #30 tabs 12/28/24 07/10/25 Rx tablet Lactobacillus acidophilus 0.5 mg 1,000 mmu cells PO DAILY 05/11/25 07/10/25 History (100 million cell) tablet donepezil 10 mg tablet 10 mg PO DAILY 05/11/25 07/10/25 History fluticasone propionate 50 2 spray intranasal DAILY 05/11/25 07/10/25 History mcg/actuation nasal spray,suspension methenamine hippurate 1 gram tablet 1 g PO BID 05/11/25 07/10/25 History nitroglycerin 0.4 mg sublingual 0.4 mg sublingual DIRECTED PRN 05/11/25 07/10/25 History tablet (Nitrostat) Chest Pain nystatin-triamcinolone 100,000 1 applic topical BID 05/11/25 07/10/25 History unit/gram-0.1 % topical ointment oxybutynin chloride 5 mg/5 mL oral 15 mg DIRECTED 05/11/25 07/10/25 History syrup polyethylene glycol 3350 17 gram 17 g PO DAILY 05/11/25 07/10/25 History oral powder packet senna-docusate sodium tablet 1 tab PO BID 05/11/25 07/10/25 History cefdinir 300 mg capsule 300 mg PO Q12H 5 days #10 caps 07/08/25 07/10/25 Rx Patient History Medical History Fall from chair, initial encounter Ambulatory dysfunction VRE (vancomycin-resistant Enterococci) Cellulitis Cellulitis of right leg Acute UTI Aspiration pneumonia Chronic indwelling Devlin catheter Complicated urinary tract infection Acute kidney injury superimposed on chronic kidney disease Parainfluenza infection Influenza A (H1N1) Acute hypokalemia Delirium Chronic indwelling Devlin catheter Bladder cancer Weakness Recurrent UTI Anxiety Elevated blood pressure reading Complicated UTI (urinary tract infection) Myocarditis Primary bladder malignant neoplasm Coagulopathy Fracture of multiple teeth Sacral pressure sore Urethral stricture Ascending aorta dilation Mild- 4.4cm per 11/2022 ECHO Obesity Venous insufficiency (chronic) (peripheral) Radiation cystitis Kidney stones x1 episode. no surgery needed. Cardiac arrest hx r/t IV Contrast Dye "many years ago" Allergic rhinitis Contrast media allergy Hiatal hernia Surgical History S/P IVC filter S/P cataract extraction History of right cataract extraction History of colonoscopy H/O sinus surgery History of appendectomy S/P TURP (status post transurethral resection of prostate) Status post cystoscopy (11/07/13) Family History Father Prostate cancer Brother Prostate cancer Mother Thyroid cancer Cancer Other No family history of adverse response to anesthesia Social History Smoking Status: Never smoker Second Hand Exposure: No; Do You Dip or Chew Tobacco: No; Tobacco Cessation Education Requested by Patient: No Hx Alcohol Use: No Hx Substance Use: No Preferred Language: Italian Communication Ability: Effective Visual Impairment: Limited Hearing Ability: Normal 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 Beliefs That Will Affect Care: None marital status: Current Living Situation: Spouse Current Living Situation Comment: [place] current occupational status: retired How many Children do You have: 0 Other Information That Helps Us Care for You: No Feels Safe at Home: Yes Safety Concerns: Feels Safe At This Time Diet: regular during the past year weight has: decreased > 10 lbs Seatbelt Use: always Do you think of yourself as: straight/heterosexual Gender Identity: Male Assistive Devices: Glasses and Walker Review of Systems Review of Systems: All systems reviewed & are unremarkable except as noted in HPI & below Physical Exam Constitutional: no acute distress Respiratory: no respiratory distress and no labored breathing Musculoskeletal: Head/Neck/Chest: normocephalic Neurologic: awake Psychiatric: Orientation: alert, oriented to person and cooperative Genitourinary: Devlin draining clear yellow urine Results & Data Vital Signs (Past 12 Hours) Vital Signs Temp Pulse Resp BP Pulse Ox O2 Del Method 07/11/25 07:58 Room Air 07/11/25 07:55 36.6 C 62 18 157/78 H 100 Room Air PG Care Time/CCT Total # of Minutes Spent Total Time Spent with Patient: Total time spent is greater than 50% in coordination of care (as documented) at patient's floor/unit and/or counseling patient: Coding Level of Care Code 91220 INT INP/OBS CARE 2/55MIN Diagnoses Chronic indwelling Devlin catheter Z97.8 Complicated UTI (urinary tract infection) N39.0
[2025-07-11] MEDS: OSELTAMIVIR PHOSPHATE 30 MG CAP PO SCH (14:04)
[2025-07-11] MEDS: cefTRIAXone SODIUM 2,000 MG/50 ML BAG IV SCH (14:14)
[2025-07-11] MEDS ORDERED: DAPTOmycin 1,000 MG in SYRINGE 0 ML IV SCH (14:30)
[2025-07-11] MEDS ORDERED: cefTRIAXone SODIUM 2,000 MG/50 ML BAG IV SCH (16:00)
[2025-07-11] MEDS: SULFAMETHOXAZOLE/TRIMETHOPRIM DS 800/160MG TAB PO SCH (22:09)
[2025-07-12 06:48] LABS: Hematocrit (blood only) 35.2 % (42.0-52.0); Hemoglobin 11.7 g/dL (14.0-18.0); Mean Corpuscular Hemoglobin 29.3 pg (25.0-34.0); Mean Corpuscular Volume 88.0 fL (80.0-100.0); Platelet Count 188 K/uL (130-400); RDW Standard Deviation 47.2 fL (36.4-46.3); Red Blood Count 4.00 M/uL (4.70-6.10); White Blood Count 5.90 K/ul (4.8-10.8)
[2025-07-12 07:12] LABS: Anion Gap 6.0 (3-11); Blood Urea Nitrogen 18.0 mg/dl (6-23); Calcium 8.2 mg/dl (8.6-10.3); Carbon Dioxide 27.0 mmol/L (21-32); Chloride 111.0 mmol/L (98-107); Creatinine Clr Calc Pharmacy 54.0 ml/min; Glucose 90.0 mg/dl (70-99(Fasting)); Potassium 3.6 mmol/L (3.5-5.1); Sodium 144.0 mmol/L (136-145)
--- NOTE | 2025-07-12 09:48 | Hospitalist Progress Note ---
Date of Service July 12, 2025 Assessment & Plan (1) Complicated UTI (urinary tract infection): (2) Chronic indwelling Tatum catheter: Plan Mr. 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 coli and MRSA. #Complicated UTI #Chronic indwelling Tatum catheter 2/2 history of bladder CA s/p surgery and prostate CA s/p radiation therapy -UTI secondary to chronic tatum catheter -Urine cx from ED visit on 07/08 growing E. coli and MRSA -No s/s sepsis -Tatum catheter was exchanged on 07/08 and urology evaluated on 07/11 for leaking catheter which was attributed to bladder spasms Plan -Continue CTX to treat E. 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 Tentatively scheduled for TAVR on 07/20/25. #CKD stage IIIb Creatinine stable, baseline creatinine around 1.2-1.5 per chart review. Continue to monitor and avoid nephrotoxic agents as able. #History of DVT/PE s/p IVC filter placement chronically anticoagulated on Eliquis Continue Eliquis. #Chronic anemia Hgb 11.7 continue Fe supplementation and daily CBC monitoring. No s/s acute blood loss #Chronic adrenal insufficiency Continue hydrocortisone, fludrocortisone. #Mild cognitive impairment Mentation status at baseline, continue memantine and donepezil. Delirium precautions. #COPD Reports nonproductive cough, some sinus congestion x 1 week. diagnosed with influenza 07/10 Due to him being high risk, continue post exposure prophylaxis tamiflu x 5 days #Hypokalemia -Replace and follow DVT Prophylaxis: Eliquis Code Status: FULL CODE PCP: Chuy Batista MD I spent a total of 52 minutes coordinating, documenting, and providing care for this patient excluding time spent in the performance of separately billed services. This included personally reviewing all current laboratories and imaging studies, medical reconciliation, outpatient chart review and discussion with specialists Admission and Anticipated Discharge Date Admission Date: July 10, 2025 Subjective Feeling well today. Patient denies F/C, CP, palpitations, SOB, dyspnea, abd pain, N/V/D. explained plan to patient today D/w on phone at length today, she remains very ill from influenza Physical Exam Physical Exam: Vitals and labs reviewed General: chronically ill appearing NAD HEENT: EOMI, PERRLA Neck: Supple Cardiac: RRR no rubs gallops or murmurs Lungs: CTA no rhonchi wheezing or rales Abd: S NT ND BS positive : Tatum MSK: Full ROM. No obvious deformities Ext: No Edema cyanosis Skin: Warm, Dry Neuro: AOx3 No focal deficits. Psych: Normal Mood Results & Data Results & Data Vital Signs (Past 12 Hours) Vital Signs Temp Pulse Resp BP Pulse Ox O2 Del Method 07/12/25 07:49 36.5 C 66 18 135/65 98 Room Air 07/12/25 00:00 36.6 C 60 16 140/70 95 Room Air Laboratory Results Abnormal lab results 07/12/25 Range/Units 05:56 RBC 4.00 L (4.70-6.10) M/uL Hgb 11.7 L (14.0-18.0) g/dL Hct 35.2 L (42.0-52.0) % RDW Std Deviation 47.2 H (36.4-46.3) fL RDW Coeff of Robert 14.6 H (11.5-14.5) % MPV 9.0 L (9.4-12.4) fL Chloride 111 H (98-107) mmol/L Calcium 8.2 L (8.6-10.3) mg/dl
[2025-07-12] MEDS: MELATONIN 3 MG TAB PO PRN (21:00)
[2025-07-12] MEDS: busPIRone 5 MG TAB PO SCH (21:00)
[2025-07-13 06:32] LABS: Hematocrit (blood only) 36.0 % (42.0-52.0); Hemoglobin 11.9 g/dL (14.0-18.0); Mean Corpuscular Hemoglobin 29.2 pg (25.0-34.0); Mean Corpuscular Volume 88.2 fL (80.0-100.0); Platelet Count 191 K/uL (130-400); RDW Standard Deviation 46.6 fL (36.4-46.3); Red Blood Count 4.08 M/uL (4.70-6.10); White Blood Count 6.25 K/ul (4.8-10.8)
[2025-07-13 06:49] LABS: Anion Gap 6.0 (3-11); Blood Urea Nitrogen 19.0 mg/dl (6-23); Calcium 8.3 mg/dl (8.6-10.3); Carbon Dioxide 25.0 mmol/L (21-32); Chloride 111.0 mmol/L (98-107); Creatinine Clr Calc Pharmacy 51.3 ml/min; Glucose 93.0 mg/dl (70-99(Fasting)); Potassium 3.9 mmol/L (3.5-5.1); Sodium 142.0 mmol/L (136-145)
--- NOTE | 2025-07-13 10:14 | Hospitalist Progress Note ---
Date of Service July 13, 2025 Assessment & Plan (1) Complicated UTI (urinary tract infection): (2) Chronic indwelling Tatum catheter: Plan Mr. 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 coli and MRSA. #Complicated UTI #Chronic indwelling Tatum catheter 2/2 history of bladder CA s/p surgery and prostate CA s/p radiation therapy -UTI secondary to chronic tatum catheter -Urine cx from ED visit on 07/08 growing E. coli and MRSA -No s/s sepsis -Tatum catheter was exchanged on 07/08 and urology evaluated on 07/11 for leaking catheter which was attributed to bladder spasms Plan -Continue CTX to treat E. 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 Tentatively scheduled for TAVR on 07/20/25. #CKD stage IIIb Creatinine stable, baseline creatinine around 1.2-1.5 per chart review. Continue to monitor and avoid nephrotoxic agents as able. #History of DVT/PE s/p IVC filter placement chronically anticoagulated on Eliquis Continue Eliquis. #Chronic anemia Hgb 11.7 continue Fe supplementation and daily CBC monitoring. No s/s acute blood loss #Chronic adrenal insufficiency Continue hydrocortisone, fludrocortisone. #Mild cognitive impairment Mentation status at baseline, continue memantine and donepezil. Delirium precautions. #COPD Reports nonproductive cough, some sinus congestion x 1 week. diagnosed with influenza 07/10 Due to him being high risk, continue post exposure prophylaxis tamiflu x 5 days #Hypokalemia -Replace and follow DVT Prophylaxis: Eliquis Code Status: FULL CODE PCP: Chuy Batista MD I spent a total of 51 minutes coordinating, documenting, and providing care for this patient excluding time spent in the performance of separately billed services. This included personally reviewing all current laboratories and imaging studies, medical reconciliation, outpatient chart review and discussion with specialists Admission and Anticipated Discharge Date Admission Date: July 10, 2025 Subjective Feeling well today. Patient denies F/C, CP, palpitations, SOB, dyspnea, abd pain, N/V/D. explained plan again to patient today D/w on phone at length today, she remains very ill from influenza D/w RN and CM Physical Exam Physical Exam: Vitals and labs reviewed General: chronically ill appearing NAD HEENT: EOMI, PERRLA Neck: Supple Cardiac: RRR no rubs gallops or murmurs Lungs: CTA no rhonchi wheezing or rales Abd: S NT ND BS positive : Tatum MSK: Full ROM. No obvious deformities Ext: No Edema cyanosis Skin: Warm, Dry Neuro: AOx3 No focal deficits. Psych: Normal Mood Results & Data Results & Data Vital Signs (Past 12 Hours) Vital Signs Temp Pulse Resp BP Pulse Ox O2 Del Method 07/13/25 09:22 Room Air 07/13/25 07:00 36.4 C L 61 18 143/79 H 99 Room Air 07/12/25 22:59 36.5 C 63 16 137/77 97 Room Air Laboratory Results Abnormal lab results 07/13/25 Range/Units 05:59 RBC 4.08 L (4.70-6.10) M/uL Hgb 11.9 L (14.0-18.0) g/dL Hct 36.0 L (42.0-52.0) % RDW Std Deviation 46.6 H (36.4-46.3) fL MPV 8.9 L (9.4-12.4) fL Chloride 111 H (98-107) mmol/L Calcium 8.3 L (8.6-10.3) mg/dl
[2025-07-14 06:19] LABS: Hematocrit (blood only) 35.6 % (42.0-52.0); Hemoglobin 12.1 g/dL (14.0-18.0); Mean Corpuscular Hemoglobin 30.2 pg (25.0-34.0); Mean Corpuscular Volume 88.8 fL (80.0-100.0); Platelet Count 211 K/uL (130-400); RDW Standard Deviation 46.0 fL (36.4-46.3); Red Blood Count 4.01 M/uL (4.70-6.10); White Blood Count 6.27 K/ul (4.8-10.8)
[2025-07-14 06:43] LABS: Anion Gap 8.0 (3-11); Blood Urea Nitrogen 17.0 mg/dl (6-23); Calcium 8.3 mg/dl (8.6-10.3); Carbon Dioxide 24.0 mmol/L (21-32); Chloride 110.0 mmol/L (98-107); Creatinine Clr Calc Pharmacy 52.4 ml/min; Glucose 83.0 mg/dl (70-99(Fasting)); Potassium 3.7 mmol/L (3.5-5.1); Sodium 142.0 mmol/L (136-145)
--- NOTE | 2025-07-14 09:57 | Hospitalist Progress Note ---
Date of Service July 14, 2025 Assessment & Plan (1) Complicated UTI (urinary tract infection): (2) Chronic indwelling Tatum catheter: Plan Mr. 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 coli and MRSA. #Complicated UTI #Chronic indwelling Tatum catheter 2/2 history of bladder CA s/p surgery and prostate CA s/p radiation therapy -UTI secondary to chronic tatum catheter -Urine cx from ED visit on 07/08 growing E. coli and MRSA -No s/s sepsis -Tatum catheter was exchanged on 07/08 and urology evaluated on 07/11 for leaking catheter which was attributed to bladder spasms Plan -Continue CTX to treat E. 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 Tentatively scheduled for TAVR on 07/20/25. #CKD stage IIIb Creatinine stable, baseline creatinine around 1.2-1.5 per chart review. Continue to monitor and avoid nephrotoxic agents as able. #History of DVT/PE s/p IVC filter placement chronically anticoagulated on Eliquis Continue Eliquis. #Chronic anemia Hgb 11.7 continue Fe supplementation and daily CBC monitoring. No s/s acute blood loss #Chronic adrenal insufficiency Continue hydrocortisone, fludrocortisone. #Mild cognitive impairment Mentation status at baseline, continue memantine and donepezil. Delirium precautions. #COPD Reports nonproductive cough, some sinus congestion x 1 week. diagnosed with influenza 07/10 Due to him being high risk, continue post exposure prophylaxis tamiflu x 5 days #Hypokalemia -Replace and follow DVT Prophylaxis: Eliquis Code Status: FULL CODE PCP: Chuy Batista MD I spent a total of 44 minutes coordinating, documenting, and providing care for this patient excluding time spent in the performance of separately billed services. This included personally reviewing all current laboratories and imaging studies, medical reconciliation, outpatient chart review and discussion with specialists Admission and Anticipated Discharge Date Admission Date: July 10, 2025 Subjective Feeling well today. Patient denies F/C, CP, palpitations, SOB, dyspnea, abd pain, N/V/D. explained plan again to patient today D/w on phone at length again today, she remains ill from influenza D/w RN Physical Exam Physical Exam: Vitals and labs reviewed General: chronically ill appearing NAD HEENT: EOMI, PERRLA Neck: Supple Cardiac: RRR no rubs gallops or murmurs Lungs: CTA no rhonchi wheezing or rales Abd: S NT ND BS positive : Tatum MSK: Full ROM. No obvious deformities Ext: No Edema cyanosis Skin: Warm, Dry Neuro: AOx3 No focal deficits. Psych: Normal Mood Results & Data Results & Data Vital Signs (Past 12 Hours) Vital Signs Temp Pulse Resp BP Pulse Ox O2 Del Method 07/14/25 09:00 Nasal Cannula 07/14/25 07:07 36.5 C 61 16 127/72 98 Room Air 07/13/25 23:20 36.4 C L 66 16 132/76 97 Room Air Laboratory Results Abnormal lab results 07/14/25 Range/Units 05:32 RBC 4.01 L (4.70-6.10) M/uL Hgb 12.1 L (14.0-18.0) g/dL Hct 35.6 L (42.0-52.0) % MPV 8.9 L (9.4-12.4) fL Chloride 110 H (98-107) mmol/L Calcium 8.3 L (8.6-10.3) mg/dl
--- NOTE | 2025-07-15 09:52 | Hospitalist Progress Note ---
Date of Service July 15, 2025 Assessment & Plan (1) Complicated UTI (urinary tract infection): (2) Chronic indwelling Tatum catheter: Plan Mr. 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 coli and MRSA. #Complicated UTI #Chronic indwelling Tatum catheter 2/2 history of bladder CA s/p surgery and prostate CA s/p radiation therapy -UTI secondary to chronic tatum catheter -Urine cx from ED visit on 07/08 growing E. coli and MRSA -No s/s sepsis -Tatum catheter was exchanged on 07/08 and urology evaluated on 07/11 for leaking catheter which was attributed to bladder spasms Plan -Continue CTX to treat E. coli, bactrim to treat MRSA -Treat through 07/16 -Follow blood cultures, NGTD -Patient will be discharged home with Wednesday barring unforeseen issue arising #Severe aortic stenosis Noted on TTE done in November 2024. Tentatively scheduled for TAVR on 07/20/25. #CKD stage IIIb Creatinine stable, baseline creatinine around 1.2-1.5 per chart review. Continue to monitor and avoid nephrotoxic agents as able. #History of DVT/PE s/p IVC filter placement chronically anticoagulated on Eliquis Continue Eliquis. #Chronic anemia Hgb stable continue Fe supplementation and daily CBC monitoring. No s/s acute blood loss #Chronic adrenal insufficiency Continue hydrocortisone, fludrocortisone. #Mild cognitive impairment Mentation status at baseline, continue memantine and donepezil. Delirium precautions. #COPD Reports nonproductive cough, some sinus congestion x 1 week. diagnosed with influenza 07/10 Due to him being high risk, continue post exposure prophylaxis tamiflu x 5 days #Hypokalemia -Replace and follow DVT Prophylaxis: Eliquis Code Status: FULL CODE PCP: Chuy Batista MD I spent a total of 41 minutes coordinating, documenting, and providing care for this patient excluding time spent in the performance of separately billed services. This included personally reviewing all current laboratories and imaging studies, medical reconciliation, outpatient chart review and discussion with specialists Admission and Anticipated Discharge Date Admission Date: July 10, 2025 Subjective Feeling well today. Patient denies F/C, CP, palpitations, SOB, dyspnea, abd pain, N/V/D. explained plan again to patient today D/w on phone again today, she remains ill from influenza but is improving D/w RN Physical Exam Physical Exam: Vitals and labs reviewed General: chronically ill appearing NAD HEENT: EOMI, PERRLA Neck: Supple Cardiac: RRR no rubs gallops or murmurs Lungs: CTA no rhonchi wheezing or rales Abd: S NT ND BS positive : Tatum MSK: Full ROM. No obvious deformities Ext: No Edema cyanosis Skin: Warm, Dry Neuro: AOx3 No focal deficits. Psych: Normal Mood Results & Data Results & Data Vital Signs (Past 12 Hours) Vital Signs Temp Pulse Resp BP Pulse Ox O2 Del Method 07/15/25 07:37 36.4 C L 63 16 146/78 H 99 Room Air 07/14/25 22:00 36.5 C 69 18 135/93 99 Room Air
[2025-07-16 07:44] VITALS: BP 147/98; PULSE 73; RESP 16; TEMP 97.5; O2SAT 98
--- NOTE | 2025-07-16 09:22 | Discharge Summary ---
Discharge Summary Date of Service July 16, 2025 Principal Dx & Hospital Course #1 = Principal Diagnosis (1) Complicated UTI (urinary tract infection): (2) Chronic indwelling Tatum catheter: Plan Mr. 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 coli and MRSA. He was treated for a complicated CAUTI. After urine cx finalized, he was transitioned to CTX and bactrim. Blood cultures negative. Clinically improved during his stay. He was medically ready for discharge a few days ago but unfortunately his , who is his mold sheet cleaner, had the flu and was unable to care for him over the weekend. He feels well today and denies any complaints. d/w again today who agrees with discharge. He completed his abx regimen for UTI during his stay. he is afebrile. HDS. 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 #Complicated UTI #Chronic indwelling Tatum catheter 2/2 history of bladder CA s/p surgery and prostate CA s/p radiation therapy -UTI secondary to chronic tatum catheter -Urine cx from ED visit on 07/08 growing E. coli and MRSA -No s/s sepsis -Tatum catheter was exchanged on 07/08 and urology evaluated on 07/11 for leaking catheter which was attributed to bladder spasms #Severe aortic stenosis Noted on TTE done in November 2024. Tentatively scheduled for TAVR on 07/20/25. #CKD stage IIIb Creatinine stable, baseline creatinine around 1.2-1.5 per chart review. Continue to monitor and avoid nephrotoxic agents as able. #History of DVT/PE s/p IVC filter placement chronically anticoagulated on Eliquis Continue Eliquis. #Chronic anemia Hgb stable continue Fe supplementation and daily CBC monitoring. No s/s acute blood loss #Chronic adrenal insufficiency Continue hydrocortisone, fludrocortisone. #Mild cognitive impairment Mentation status at baseline, continue memantine and donepezil. Delirium precautions. #COPD Reports nonproductive cough, some sinus congestion x 1 week. diagnosed with influenza 07/10 Due to him being high risk, continue post exposure prophylaxis tamiflu x 5 days #Hypokalemia -Replace and follow DVT Prophylaxis: Eliquis Code Status: FULL CODE PCP: Chuy Batista MD I spent a total of 39 minutes coordinating, documenting, and providing care for this patient excluding time spent in the performance of separately billed services. 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 History obtained primarily from the patient's , Ivet, at bedside. Additional history elicited from the patient, discussion with ED provider and associated chart review. Patient previously seen in our ED on 07/08/25 s/p fall out of bed. Trauma imaging at that time including CXR, head CT, pelvis XR, CTAP and cervical spine CT were all grossly unremarkable. Patient with chronic indwelling Tatum catheter c/b recurrent UTIs. UA was completed which showed evidence of infection including positive nitrites, 3+ LE, >50 WBC and 4+ bacteria. Patient was given a dose of IV Rocephin in the ED and discharged home on p.o. cefdinir. He was referred back to the ED today for IV ABX therapy after urine culture grew E. coli and MRSA. Tatum catheter exchanged on 07/08/25. Experiencing some fatigue, myalgias. was diagnosed with influenza earlier today. Patient has been experiencing a mild cough, some SOB and sinus congestion for the past week. Possible fever yesterday with associated chills, no recorded temperature was ever taken. Describes some lower abdominal pressure but passing normal BMs. Had some mild hematuria s/p Tatum catheter exchange in the ED 2 days ago, as per above, however this has resolved. Denies any N/V. Tolerating oral intake without issue. Tentatively scheduled for TAVR procedure on 07/17/25. Discharge Exam Vitals and labs reviewed General: chronically ill appearing NAD HEENT: EOMI, PERRLA Neck: Supple Cardiac: RRR no rubs gallops or murmurs Lungs: CTA no rhonchi wheezing or rales Abd: S NT ND BS positive : Tatum MSK: Full ROM. No obvious deformities Ext: No Edema cyanosis Skin: Warm, Dry Neuro: AOx3 No focal deficits. Psych: Normal Mood Updated Medication List Medication Instructions Recorded Confirmed Type ascorbic acid (vitamin C) 1,000 mg 1,000 mg PO DAILY #30 tabs 06/08/24 07/10/25 Rx tablet cholecalciferol (vitamin D3) 125 125 mcg PO DAILY #30 tabs 06/08/24 07/10/25 Rx mcg (5,000 unit) tablet (Vitamin D3) cyanocobalamin (vitamin B-12) 1,000 mcg PO DAILY #30 tabs 06/08/24 07/10/25 Rx 1,000 mcg tablet epinephrine 0.3 mg/0.3 mL 0.3 mg (0.3 mL) IM UD PRN 06/08/24 07/10/25 Rx injection, auto-injector Anaphylaxis #3 ea fluticasone fur. 200 mcg-umeclid 1 inh inhalation DAILY #1 ea 06/08/24 07/10/25 Rx 62.5 mcg-vilant 25 mcg inhalat.powder (Trelegy Ellipta) lidocaine 5 % topical patch 2 patch transdermal DAILY #20 ea 06/08/24 07/10/25 Rx memantine 10 mg tablet 10 mg PO BID #60 tabs 06/08/24 07/10/25 Rx omeprazole 20 mg capsule,delayed 20 mg PO DAILY #30 caps 06/08/24 07/10/25 Rx release solifenacin 5 mg tablet 5 mg PO DAILY #30 tabs 06/08/24 07/10/25 Rx hydrocortisone 10 mg tablet 20 mg (2 x 10 mg) PO QAM #0 tabs 07/07/24 07/10/25 Rx (Cortef) albuterol sulfate 90 mcg/actuation 2 puff inhalation Q6H PRN 08/21/24 07/10/25 History aerosol inhaler Shortness Of Breath Or Wheezing fludrocortisone 0.1 mg tablet 0.1 mg PO DAILY 08/21/24 07/10/25 History ferrous sulfate 325 mg (65 mg 325 mg PO 3XWK 11/03/24 07/10/25 History iron) tablet,delayed release hydrocortisone 10 mg tablet 10 mg PO .DAILY @ 1500 11/03/24 07/10/25 History (Cortef) apixaban 2.5 mg tablet (Eliquis) 2.5 mg PO BID #60 tabs 11/16/24 07/10/25 Rx buspirone 5 mg tablet 5 mg PO TID #90 tabs 12/28/24 07/10/25 Rx mirabegron 50 mg tablet,extended 50 mg PO DAILY #30 tabs 12/28/24 07/10/25 Rx release 24 hr thiamine HCl (vitamin B1) 100 mg 100 mg PO QAM #30 tabs 12/28/24 07/10/25 Rx tablet Lactobacillus acidophilus 0.5 mg 1,000 mmu cells PO DAILY 05/11/25 07/10/25 History (100 million cell) tablet donepezil 10 mg tablet 10 mg PO DAILY 05/11/25 07/10/25 History fluticasone propionate 50 2 spray intranasal DAILY 05/11/25 07/10/25 History mcg/actuation nasal spray,suspension methenamine hippurate 1 gram tablet 1 g PO BID 05/11/25 07/10/25 History nitroglycerin 0.4 mg sublingual 0.4 mg sublingual DIRECTED PRN 05/11/25 07/10/25 History tablet (Nitrostat) Chest Pain nystatin-triamcinolone 100,000 1 applic topical BID 05/11/25 07/10/25 History unit/gram-0.1 % topical ointment oxybutynin chloride 5 mg/5 mL oral 15 mg DIRECTED 05/11/25 07/10/25 History syrup polyethylene glycol 3350 17 gram 17 g PO DAILY 05/11/25 07/10/25 History oral powder packet senna-docusate sodium tablet 1 tab PO BID 05/11/25 07/10/25 History cefdinir 300 mg capsule 300 mg PO Q12H 5 days #10 caps 07/08/25 07/10/25 Rx Hospital Stay Data Consultations 07/10/25 14:45 ED Decision to Admit Stat 07/11/25 13:06 Consult Urology Routine Pending Results Patient Have Any Pending Studies at Discharge: No Discharge Instructions Given to Patient (Per Discharging Provider) Please follow up with your cardiology team regarding your upcoming procedure. Please follow up with your PCP in 1-2 weeks. You completed your antibiotics in the hospital. Total Time Total Time Spent Total Time Spent (In Minutes): 39
== END 2025-07-16 14:56 | disposition home health service (06) | DRG 699 ==
LOC: ED 12:12 → 3E 15:40 → SUATTDRO 15:40 → 3E 16:50